=== PATIENT | male | born 1985 | race Caucasian/White ===

== ENCOUNTER 2016-11-24 12:34 | Emergency (ER) | payer OTHER ==
[2016-11-24 12:52] VITALS: RESP 18; TEMP 98
[2016-11-24] MEDS ORDERED: ORPHENADRINE 30 MG/ML 2 ML VIAL IM STA (13:15)
[2016-11-24] MEDS ORDERED: KETOROLAC 60 MG/2 ML VIAL IM STA (13:15)
--- NOTE | 2016-11-24 13:18 | ED ---
General Adult HPI - General Chief complaint: Back Pain/Injury Stated complaint: Back Pain Time Seen by Provider: 11/24/16 13:09 Source: patient, RN notes reviewed Mode of arrival: ambulatory Limitations: no limitations - History of Present Illness Initial comments: 31-year-old male presents with lower back pain 1 day. Patient states he bent down yesterday to pick something up and felt pain in his lower back. Patient states he is able to ambulate but it is painful. Patient states pain is worse with full extension of his back and with twisting. Patient denies any radicular pain, numbness/weakness or tingling to the bilateral upper/lower extremities. Patient states he has a history of back pain. Patient denies any loss of bowel or bladder function or loss of sensation to the saddle area. Patient denies any fall or trauma to the lower back.Patient denies any recent fever, chills, shortness breath, chest pain, abdominal pain, nausea/vomiting/ diarrhea, hematuria, headache, or visual changes, or any other complaints. - Related Data Previous Rx's Medication Instructions Recorded Cyclobenzaprine [Flexeril] 5 mg PO TID 3 Days 11/24/16 Allergies Allergy/AdvReac Type Severity Reaction Status Date / Time No Known Allergies Allergy Verified 11/24/16 12:53 Review of Systems ROS Statement: Those systems with pertinent positive or pertinent negative responses have been documented in the HPI. ROS Other: All systems not noted in ROS Statement are negative. Past Medical History Past Medical History: No Reported History History of Any Multi-Drug Resistant Organisms: None Reported Past Surgical History: No Surgical Hx Reported Past Psychological History: No Psychological Hx Reported Smoking Status: Current every day smoker Past Alcohol Use History: Occasional Past Drug Use History: None Reported General Exam - General Exam Comments Initial Comments: General: The patient is awake and alert, in no distress, and does not appear acutely ill. Neck: The neck is supple, there is no tenderness or JVD. Cardiovascular: There is a regular rate and rhythm. No murmur, rub or gallop is appreciated. Respiratory: Lungs are clear to auscultation, respirations are non-labored, breath sounds are equal. No wheezes, stridor, rales, or rhonchi. Musculoskeletal: There is no tenderness over the lumbar spinous processes or to the paraspinal muscles. Patient has pain with a twisting motion of the lower back. Full range of motion, strength 5/5 and Sensation intact. Radial pulses 2 + bilaterally. Patient is able to ambulate. Neurological: A&O x 3. CN II-XII intact, There are no obvious motor or sensory deficits. Coordination appears grossly intact. Speech is normal. Skin: Skin is warm and dry and no rashes or lesions are noted. Psychiatric: Normal mood and affect. Limitations: no limitations Course Vital Signs 11/24/16 12:50 Temperature 98.0 F Pulse Rate 121 H Respiratory 18 Rate Blood Pressure 168/98 O2 Sat by Pulse 96 Oximetry Medical Decision Making - Medical Decision Making This is a 31-year-old male who presents with lower back pain Monday. On physical exam patient is neurologically intact. There is no tenderness over the lumbar spinous processes or to the paraspinal muscles. Patient has pain with a twisting motion of the lower back. Full range of motion, strength 5/5 and Sensation intact. Radial pulses 2+ bilaterally. Patient is able to ambulate. Patient states he feels like the pain is in his bones. An x-ray of the lumbar spine was done and reviewed showing: Stable exam, no acute osseous abnormality. Loss of disc at L5-S1 compatible with degenerative disc disease. Lumbar MRI may be of benefit. Report and read by Dr. Dykes. I discussed results with patient. Patient was given a dose of Toradol and Norflex in the EC today. Discussed warm compresses to the area. Discussed ibuprofen, naproxen or Tylenol [id number] as needed for pain. Discussed that patient will be given a prescription for Flexeril. Discussed that this medication may make patient drowsy. Discussed close follow-up with primary care physician and return parameters. Discussed that patient should follow up with PCP in one to 2 days or return to the [facility] for any worsening symptoms or for any further concerns. Patient was receptive to this plan and patient will be discharged home. Disposition Clinical Impression: Strain of lumbar region Disposition: HOME SELF-CARE Condition: Good Instructions: Acute Low Back Pain (ED) Additional Instructions: Please use warm heating pads to the area. Please use [id number] ibuprofen , naproxen or Tylenol for any pain. Please use Flexeril as prescribed and be aware that this medication may make you drowsy. Please follow-up with family doctor in the next 2 days of symptoms have not improved. Please return to emergency room if the symptoms increase or worsen or for any other concerns. Prescriptions: Cyclobenzaprine [Flexeril] 5 mg PO TID 3 Days Referrals: Jocelyn Ventura MD [Primary Care Provider] - 1-2 days Time of Disposition: 13:52
--- NOTE | 2016-11-24 13:46 | XR ---
Lumbar spine HISTORY: Pain in back 3 views of the lumbar spine correlated to prior exam August No interval change IMPRESSION: Stable exam, no acute osseous abnormality. Loss of disc at L5-S1 compatible with degenera tive disc disease. Lumbar MRI may be of benefit.
[2016-11-24 14:01] VITALS: BP 130/77; PULSE 105
== END 2016-11-24 14:07 | disposition home or self-care (01) ==
LOC: EC 12:34
DX: S39.012A Strain of muscle, fascia and tendon of lower back, initial encounter (principal); M51.37 Other intervertebral disc degeneration, lumbosacral region; F17.200 Nicotine dependence, unspecified, uncomplicated; X58.XXXA Exposure to other specified factors, initial encounter
CPT/HCPCS: 72100; 99283; 96372 ×2; J2360; J1885

== ENCOUNTER 2017-02-01 13:31 | Emergency (ER) | payer OTHER ==
[2017-02-01 13:43] VITALS: RESP 18
--- NOTE | 2017-02-01 14:01 | ED ---
General Adult HPI - General Chief complaint: Psychiatric Symptoms Stated complaint: suicidal Time Seen by Provider: 02/01/17 13:40 Source: patient, RN notes reviewed Mode of arrival: ambulatory Limitations: no limitations - History of Present Illness Initial comments: This is a 31-year-old male with a past medical history significant for depression. Patient states this started in childhood but he has not been diagnosed by psychiatrist. Patient states he has been diagnosed by his primary medical care doctor. Patient states lately he's been under quite a bit of stress financially and at work and he is living with his 's parents and that is adding stress as well. Patient states lately he has been having quite a few thoughts of committing suicide however he does not feel like he is at the point of suicide but states he is afraid he is going to get there. Patient states he only drinks occasionally only illegal drug use doses marijuana. Patient denies any physical complaints today. Patient denies headache patient denies numbness weakness. Patient denies chest pain difficult breathing or shortness of breath per patient denies palpation. Patient denies any recent fever chills or cough. Patient denies abdominal pain patient denies nausea vomiting diarrhea - Related Data Home Medications Medication Instructions Recorded Confirmed Ibuprofen [Motrin] 800 mg PO TID PRN 02/01/17 02/01/17 Allergies Allergy/AdvReac Type Severity Reaction Status Date / Time No Known Allergies Allergy Verified 02/01/17 16:38 Review of Systems ROS Statement: Those systems with pertinent positive or pertinent negative responses have been documented in the HPI. ROS Other: All systems not noted in ROS Statement are negative. Past Medical History Past Medical History: No Reported History Additional Past Medical History / Comment(s): back pain History of Any Multi-Drug Resistant Organisms: None Reported Past Surgical History: No Surgical Hx Reported Past Psychological History: Anxiety, Depression Smoking Status: Current every day smoker Past Alcohol Use History: Occasional Past Drug Use History: Marijuana General Exam - General Exam Comments Initial Comments: GENERAL: Patient is well-developed and well-nourished. Patient is nontoxic and well- hydrated and is in mild distress. ENT: Neck is soft and supple. No significant lymphadenopathy is noted. Oropharynx is clear. Moist mucous membranes. Neck has full range of motion without eliciting any pain. EYES: The sclera were anicteric and conjunctiva were pink and moist. Extraocular movements were intact and pupils were equal round and reactive to light. Eyelids were unremarkable. PULMONARY: Unlabored respirations. Good breath sounds bilaterally. No audible rales rhonchi or wheezing was noted. CARDIOVASCULAR: There is a regular rate and rhythm without any murmurs gallops or rubs. ABDOMEN: Soft and nontender with normal bowel sounds. No palpable organomegaly was noted. There is no palpable pulsatile mass. SKIN: Skin is clear with no lesions or rashes and otherwise unremarkable. NEUROLOGIC: Patient is alert and oriented x3. Cranial nerves II through XII are grossly intact. Motor and sensory are also intact. Normal speech, volume and content. Symmetrical smile. MUSCULOSKELETAL: Normal extremities with adequate strength and full range of motion. No lower extremity swelling or edema. No calf tenderness. LYMPHATICS: No significant lymphadenopathy is noted PSYCHIATRIC: Patient states been feeling more depressed lately and having more suicidal ideations. Limitations: no limitations Course Vital Signs 02/01/17 13:37 Temperature 98.6 F Pulse Rate 103 H Respiratory 18 Rate Blood Pressure 149/69 O2 Sat by Pulse 99 Oximetry Medical Decision Making - Medical Decision Making EKG shows sinus tachycardia with occasional PAC at a rate of 101 bpm AK interval is 142 QRS is 92 QT interval 362 QTC is 469. Patient's EKG shows no ST segment elevation or depression or T wave abnormalities are noted. [facility] came down and spoke with the patient patient was considered safe to go home and follow up tomorrow with an already scheduled [facility] appointment. I spoke with the patient he agreed with this. - Lab Data Lab Results 02/01/17 Range/Units 14:21 Urine Opiates Screen Detected H (NotDetected) Ur Oxycodone Screen Not Detected (NotDetected) Urine Methadone Screen Not Detected (NotDetected) Ur Propoxyphene Screen Not Detected (NotDetected) Ur Barbiturates Screen Not Detected (NotDetected) U Tricyclic Antidepress Not Detected (NotDetected) Ur Phencyclidine Scrn Not Detected (NotDetected) Ur Amphetamines Screen Detected H (NotDetected) U Methamphetamines Scrn Not Detected (NotDetected) U Benzodiazepines Scrn Not Detected (NotDetected) Urine Cocaine Screen Detected H (NotDetected) U Marijuana (THC) Screen Detected H (NotDetected) Disposition Clinical Impression: Depression, Stress at work Disposition: HOME SELF-CARE Condition: Good Instructions: Depression (ED) Referrals: Jocelyn Ventura MD [Primary Care Provider] - 1-2 days Time of Disposition: 17:03
[2017-02-01 17:16] VITALS: BP 134/88; PULSE 88; TEMP 97.5
== END 2017-02-01 17:20 | disposition home or self-care (01) ==
LOC: EC 13:31
DX: F32.9 Major depressive disorder, single episode, unspecified (principal); Z56.3 Stressful work schedule; F17.200 Nicotine dependence, unspecified, uncomplicated
CPT/HCPCS: 80306; 82075; 99284

== ENCOUNTER 2018-05-19 23:19 | Inpatient (IN) | payer OTHER ==
[2018-05-19] MEDS ORDERED: HALOPERIDOL LACTATE 5 MG/ML 1 ML VIAL IM STA (23:54)
[2018-05-19] MEDS ORDERED: LORazepam 2 MG/ML INJ IM STA (23:56)
[2018-05-20] MEDS ORDERED: SODIUM CHLORIDE 0.9% 2,000 ML IV STA (00:58)
[2018-05-20 01:51] LABS: Basophils # (A) 0.1 k/uL (0-0.2); Basophils % (A) 0 %; Eosinophils % (A) 0 %; HCT 44.6 % (39.0-53.0); HGB 15.4 gm/dL (13.0-17.5); Lymphocytes # (A) 1.3 k/uL (1.0-4.8); Lymphocytes % (A) 9 %; MCH 26.7 pg (25.0-35.0); MCHC 34.6 g/dL (31.0-37.0); MCV 77.2 fL (80.0-100.0); Mean Platelet Volume 9.9; Monocytes # (A) 0.7 k/uL (0-1.0); Monocytes % (A) 5 %; Neutrophils # (A) 12.1 k/uL (1.3-7.7); Neutrophils % (A) 84 %; Platelet Count 272 k/uL (150-450); RBC 5.77 m/uL (4.30-5.90); RDW 13.8 % (11.5-15.5); WBC 14.4 k/uL (3.8-10.6)
[2018-05-20 02:07] LABS: ALT 38 U/L (21-72); AST 82 U/L (17-59); Acetaminophen <10.0 ug/mL; Albumin 5.3 g/dL (3.5-5.0); Alcohol <10 mg/dL; Alkaline Phosphatase 78 U/L (38-126); Anion Gap 25 mmol/L; Blood Urea Nitrogen 23 mg/dL (9-20); Calcium 10.5 mg/dL (8.4-10.2); Carbon Dioxide 17 mmol/L (22-30); Chloride 97 mmol/L (98-107); Glucose 149 mg/dL (74-99); Salicylate <1.0 mg/dL; Sodium 139 mmol/L (137-145); Total Bilirubin 1.2 mg/dL (0.2-1.3)
[2018-05-20] MEDS ORDERED: NALOXONE 0.4 MG/ML 1 ML VIAL IV PRN (04:44)
--- NOTE | 2018-05-20 04:44 | ED ---
Overdose HPI - General Chief Complaint: Overdose Stated Complaint: Mental Health Time Seen by Provider: 05/19/18 23:42 Source: police, EMS Mode of arrival: EMS Limitations: altered mental status - History of Present Illness Initial Comments: 32 years old the [place] interval apart by police he has a history of drug abuse in the past in place noticed that he was confused he was acting like somebody was drugs, patient himself has no complaints. Admits to doing some I and he said he is not quite sure if he accidentally dictated some other drugs but told he thought he was here and he injected himself about few hours ago now is quite confused is quite high. He can still sit still very thirsty and requesting water and denies any headaches no neck pain no chest pain or shortness of breath no abdominal pain no frequency urgency dysuria - Related Data Previous Rx's Medication Instructions Recorded Escitalopram [Lexapro] 20 mg PO DAILY #30 tab 11/14/17 traZODone HCL [Desyrel] 150 mg PO HS 30 Days #30 tab 11/14/17 Allergies Allergy/AdvReac Type Severity Reaction Status Date / Time No Known Allergies Allergy Verified 05/20/18 00:18 Review of Systems ROS Statement: Those systems with pertinent positive or pertinent negative responses have been documented in the HPI. ROS Other: All systems not noted in ROS Statement are negative. Past Medical History Past Medical History: GERD/Reflux Additional Past Medical History / Comment(s): back pain , hep c History of Any Multi-Drug Resistant Organisms: None Reported Past Surgical History: No Surgical Hx Reported Past Psychological History: Anxiety, Depression Smoking Status: Current every day smoker Past Alcohol Use History: Occasional Past Drug Use History: Heroin, Marijuana, Prescription Drug Abuse General Exam - General Exam Comments Initial Comments: General: The patient is awake and alert, is moving constantly GCS is 15, commands Skin: Skin is warm and dry and no rashes or lesions are noted. Does have some chronic skin lesions Eye: Pupils are equal, round and reactive to light, extra-ocular movements are intact; there is normal conjunctiva bilaterally. Ears, nose, mouth and throat: There are moist mucous membranes and no oral lesions. Neck: The neck is supple, there is no tenderness or JVD. Cardiovascular: There is a regular rate and rhythm. No murmur, rub or gallop is appreciated. He is tachycardic Respiratory: To auscultation bilateral, no wheezing no rhonchi no distress respiratory gregory noticed Gastrointestinal: Soft, non-distended, non-tender abdomen without masses or organomegaly noted. There is no rebound or guarding present. Bowel sounds are unremarkable. Back: There is no tenderness to palpation in the midline. There is no obvious deformity. Musculoskeletal: Normal ROM, no tenderness, There is no pedal edema. There is no calf tenderness or swelling. No cords were appreciated. Neurological: CN II-XII intact, Cranial nerves III through XII are intact. There are no obvious motor or sensory deficits. Coordination appears grossly intact. Speech is normal. Psychiatric: Cooperative, eyes any suicidal or homicidal ideation follow the commands Limitations: altered mental status Course Vital Signs 05/19/18 05/20/18 05/20/18 23:20 01:40 02:15 Temperature 99.5 F Pulse Rate 120 H 91 90 Respiratory 18 18 18 Rate Blood Pressure 169/83 139/64 138/65 O2 Sat by Pulse 97 94 L 95 Oximetry 05/20/18 05/20/18 03:02 04:13 Temperature Pulse Rate 80 75 Respiratory 18 18 Rate Blood Pressure 143/65 141/68 O2 Sat by Pulse 95 98 Oximetry KG is normal sinus ventricular rate is 94 [place] interval is 122 QRS duration is 96 QT/QTc is 376/472 This EKG does not reveal any ST elevation or ST depression Medical Decision Making - Lab Data Result diagrams: 05/19/18 23:40 05/19/18 23:40 Lab Results 05/19/18 05/19/18 05/19/18 Range/Units 23:40 23:40 23:40 WBC 14.4 H (3.8-10.6) k/uL RBC 5.77 (4.30-5.90) m/uL Hgb 15.4 (13.0-17.5) gm/dL Hct 44.6 (39.0-53.0) % MCV 77.2 L (80.0-100.0) fL MCH 26.7 (25.0-35.0) pg MCHC 34.6 (31.0-37.0) g/dL RDW 13.8 (11.5-15.5) % Plt Count 272 (150-450) k/uL Neutrophils % 84 % Lymphocytes % 9 % Monocytes % 5 % Eosinophils % 0 % Basophils % 0 % Neutrophils # 12.1 H (1.3-7.7) k/uL Lymphocytes # 1.3 (1.0-4.8) k/uL Monocytes # 0.7 (0-1.0) k/uL Eosinophils # 0.0 (0-0.7) k/uL Basophils # 0.1 (0-0.2) k/uL Sodium 139 (137-145) mmol/L Potassium 5.0 (3.5-5.1) mmol/L Chloride 97 L (98-107) mmol/L Carbon Dioxide 17 L (22-30) mmol/L Anion Gap 25 mmol/L BUN 23 H (9-20) mg/dL Creatinine 3.00 H (0.66-1.25) mg/dL Est GFR (CKD-EPI)AfAm 31 (>60 ml/min/1.73 sqM) Est GFR (CKD-EPI)NonAf 26 (>60 ml/min/1.73 sqM) Glucose 149 H (74-99) mg/dL Calcium 10.5 H (8.4-10.2) mg/dL Total Bilirubin 1.2 (0.2-1.3) mg/dL AST 82 H (17-59) U/L ALT 38 (21-72) U/L Alkaline Phosphatase 78 (38-126) U/L Troponin I <0.012 (0.000-0.034) ng/mL Total Protein 10.0 H (6.3-8.2) g/dL Albumin 5.3 H (3.5-5.0) g/dL Salicylates <1.0 mg/dL Acetaminophen <10.0 ug/mL Serum Alcohol <10 mg/dL Critical Care Time Total Critical Care Time: 30 Critical Care Time: The patient's white count is 15, creatinine is 3.0 his creatinine previous one was within normal range calcium is 10.5 troponin is negative EKG is unremarkable CO2 is 17 chest x-ray patient is substance abuse, daily failure, metabolic acidosis patient needed to be admitted to hospitalist service should be admitted to Dr. Lainez's service and now will consult psychiatry as well as the Dr. Champion for Disposition Clinical Impression: Substance abuse, Acute renal failure, Metabolic acidosis Disposition: ADMITTED IP TO THIS HOSP Condition: Good Referrals: None,Stated [Primary Care Provider] - 1-2 days
[2018-05-20 04:55] LABS: Amphetamine Screen,Urine Detected (NotDetected); Barbiturate Screen,Urine Not Detected (NotDetected); Benzodiazepines Screen,Urine Detected (NotDetected); Cocaine Screen,Urine Not Detected (NotDetected); Methadone Screen, Urine Not Detected (NotDetected); Opiate Screen,Urine Detected (NotDetected); Oxycodone Screen, Urine Not Detected (NotDetected); Phencyclidine Screen,Urine Not Detected (NotDetected); Tricyclic Antidepressant,Urine Not Detected (NotDetected); Urn Cannabinoid Scrn Detected (NotDetected)
--- NOTE | 2018-05-20 05:15 | XR ---
EXAM: XR Chest, 1 View CLINICAL HISTORY: ITS.REASON XR Reason: Pain TECHNIQUE: Frontal view of the chest. COMPARISON: No relevant prior studies available. FINDINGS: Lungs: Mild patchy lung opacities, possible atelectasis. Pleural space: Unremarkable. No pneumothorax. Heart: Unremarkable. Mediastinum: Unremarkable. Bones/joints: Unremarkable. IMPRESSION: Mild patchy lung opacities, possible atelectasis.
[2018-05-20] MEDS: SODIUM CHLORIDE 0.9% 1,000 ML IV SCH ×2 (05:24→15:09)
--- NOTE | 2018-05-20 06:40 | P.HPIM ---
History of Present Illness H&P Date: 05/20/18 Chief Complaint: Abnormal behaviors 32-year-old male with no significant past medical history. Patient is currently stoned and unable to provide any meaningful history, history was obtained by reviewing medical records and trying to discuss with the patient. Seems like patient was brought to the hospital by police due to abnormal behavior, patient's abuses multiple substances including methamphetamine and marijuana opiates. Currently he reports some suicidal ideation but denies any physical complaints. In the emergency department blood work revealed acute kidney injury, urine drug screen showed multiple substances are positive. Patient was evaluated by psychiatry. His and was petitioned to the [facility] once medically cleared. Currently patient seems to be stoned and only wanted is sleeping, he was following simple commands but unable to provide any meaningful history at this time Review of Systems Unable to obtain meaningful review of systems due to patient's mental status Past Medical History Past Medical History: GERD/Reflux Additional Past Medical History / Comment(s): back pain , hep c History of Any Multi-Drug Resistant Organisms: None Reported Past Surgical History: No Surgical Hx Reported Past Psychological History: Anxiety, Depression Smoking Status: Current every day smoker Past Alcohol Use History: Occasional Past Drug Use History: Heroin, Marijuana, Prescription Drug Abuse Additional History: Unable to obtain family history due to patient mental status Medications and Allergies Home Medications Medication Instructions Recorded Confirmed Type Escitalopram [Lexapro] 20 mg PO DAILY #30 tab 11/14/17 05/20/18 Rx traZODone HCL [Desyrel] 150 mg PO HS 30 Days #30 tab 11/14/17 05/20/18 Rx Allergies Allergy/AdvReac Type Severity Reaction Status Date / Time No Known Allergies Allergy Verified 05/20/18 00:18 Physical Exam Vitals: Vital Signs Temp Pulse Resp BP Pulse Ox 05/20/18 05:14 79 18 156/66 97 05/20/18 04:13 75 18 141/68 98 05/20/18 03:02 80 18 143/65 95 05/20/18 02:15 90 18 138/65 95 05/20/18 01:40 91 18 139/64 94 L 05/19/18 23:20 99.5 F 120 H 18 169/83 97 Intake and Output 05/19/18 05/19/18 05/20/18 14:59 22:59 06:59 Other: Weight 87.09 kg Constitutional: No acute distress, very sleepy easily arousable but he drifts back to sleep easily. He follows very simple commands only and answers with head nodding only he can't even keep his eyes open Eyes: Anicteric sclerae, moist conjunctiva, Pupils equal round reactive to light ENMT: NC/AT Oropharynx clear, no erythema, or exudates Neck: Supple, FROM, no masses, or JVD No carotid bruits No thyromegaly Lungs: Clear to auscultation Clear to percussion Normal respiratory effort, no accessory muscle use Cardiovascular: Heart regular in rate and rhythm, No murmurs, gallops, or rubs No peripheral edema Abdominal: Soft Nontender, no guarding, rebound or rigidity Abdomen moving with respiration Normoactive bowel sounds No hepatomegaly, No splenomegaly No palpable mass No abdominal wall hernia noted Skin: Normal temperature, tone, texture, turgor No induration No subcutaneous nodules No rash, lesions No ulcers Extremities: No digital cyanosis No clubbing Pedal pulses intact and symmetrical Radial pulses intact and symmetrical No calf tenderness Psychiatric: Patient is very sleepy easily arousable and can staying awake fullness Poor judgment Neuro Muscles Strength 5/5 in all 4 extremities Sensation to light touch grossly present throughout Cranial nerves II-XII grossly intact No focal sensory deficits Lymphatics: no palpable cervical or supraclavicular , or inguinal lymph nodes Results CBC & Chem 7: 05/19/18 23:40 05/19/18 23:40 Labs: Abnormal Lab Results - Last 24 Hours (Table) 05/19/18 05/19/18 05/20/18 Range/Units 23:40 23:40 04:28 WBC 14.4 H (3.8-10.6) k/uL MCV 77.2 L (80.0-100.0) fL Neutrophils # 12.1 H (1.3-7.7) k/uL Chloride 97 L (98-107) mmol/L Carbon Dioxide 17 L (22-30) mmol/L BUN 23 H (9-20) mg/dL Creatinine 3.00 H (0.66-1.25) mg/dL Glucose 149 H (74-99) mg/dL Calcium 10.5 H (8.4-10.2) mg/dL AST 82 H (17-59) U/L Total Protein 10.0 H (6.3-8.2) g/dL Albumin 5.3 H (3.5-5.0) g/dL Urine Opiates Screen Detected H (NotDetected) Ur Amphetamines Screen Detected H (NotDetected) U Methamphetamines Scrn Detected H (NotDetected) U Benzodiazepines Scrn Detected H (NotDetected) U Marijuana (THC) Screen Detected H (NotDetected) Assessment and Plan Assessment: 32-year-old male with no significant past medical history patient was brought in by police due to abnormal behavior patient admitted to the hospital with length of stay longer than 48 hours due to diagnosis of acute kidney injury and polysubstance abuse patient also was petitioned to the [facility] once medically cleared Plan: Acute metabolic encephalopathy secondary to multi-factorial polysubstance abuse in acute renal failure Acute renal failure Leukocytosis Polysubstance abuse Suicidal ideation Patient is petitioned to the [facility] once cleared medically IV fluid hydration aggressively Nephrology consult Avoid nephrotoxic meds Patient will require bedside sitter for safety Psychiatry consult Patient counseled to quit drug of abuse and smoking DVT prophylaxis with heparin subcu 3 times a day Patient will be full code by default he he was unable to name a surrogate decision-maker Anticipated discharge to the psych [facility] once medically stable
[2018-05-20] MEDS ORDERED: ESCITALOPRAM 20 MG TAB PO SCH (09:00)
[2018-05-20] MEDS: HEPARIN SODIUM,PORCINE 5,000 UNIT/ML 1 ML VIAL SQ SCH ×2 (12:25→15:51)
[2018-05-20 14:56] LABS: Anion Gap 9 mmol/L; Blood Urea Nitrogen 17 mg/dL (9-20); Calcium 8.9 mg/dL (8.4-10.2); Carbon Dioxide 27 mmol/L (22-30); Chloride 98 mmol/L (98-107); Glucose 80 mg/dL (74-99); Potassium 3.7 mmol/L (3.5-5.1); Sodium 134 mmol/L (137-145)
[2018-05-20] MEDS ORDERED: MAG HYDROX/AL HYDROX/SIMETH 30 ML CUP PO PRN (15:23)
[2018-05-20] MEDS: NICOTINE 14MG/24HR PATCH TRANSDERM SCH (15:45)
[2018-05-20 15:48] LABS: Appearance,Urine Clear (Clear); Bilirubin,Urine Negative (Negative); Blood,Urine Negative (Negative); Color,Urine Yellow; Glucose,Urine (UA) Negative (Negative); Ketones,Urine Trace (Negative); Leukocyte Esterase,Urine Negative (Negative); Nitrite,Urine Negative (Negative); PH, Urine 5.5 (5.0-8.0); Protein,Urine Trace (Negative); Specific Gravity,Urine 1.015 (1.001-1.035); Urobilinogen,Urine <2.0 mg/dL (<2.0)
[2018-05-20] MEDS: ESCITALOPRAM 20 MG TAB PO SCH (15:51)
[2018-05-20] MEDS: traZODone HCL 50 MG TAB PO SCH (20:48)
--- NOTE | 2018-05-20 21:57 | CONS ---
CONSULTATION REASON FOR CONSULT: Renal failure. HISTORY OF PRESENT ILLNESS: The patient is a 32-year-old male who was brought into the emergency room yesterday with mental status changes. There is history of drug abuse in the past. The patient has been sleeping since he came in to the hospital. His was present for a short period of time. She has now left. We are not able to get details of history. Drug screen was positive for amphetamine, methamphetamine, benzos and marijuana. There is no prior history of kidney disease. Serum creatinine last night was 3.0 mg/dL. According to nursing staff, the patient had a Cat catheter placed in the ER. He has not voided since then. He had about 500 mL on bladder scan and he was not able to go. Calcium is noted to be elevated at 10.5, albumin is 5.3, no anemia is noted. PAST MEDICAL HISTORY: Previous history of drug abuse, gastroesophageal reflux disease. SOCIAL HISTORY: Positive for smoking. Previous history of marijuana and heroin abuse. MEDICATIONS: Medications at home included Desyrel, Lexapro. ALLERGIES: None. REVIEW OF SYSTEMS: Cannot be obtained. PHYSICAL EXAMINATION: Patient is currently sleeping. He is barely arousable. He goes back to sleep. He is not in any acute distress. Blood pressure 121/54, heart rate 65 per minute. Patient is afebrile. Examination of the heart: S1, S2. Examination lungs: Bilateral breath sounds are heard. Abdomen is soft, nontender. Examination lower extremities shows no evidence of edema. DIRECTOR RECORDS MANAGEMENT exam shows patient is moving all 4 extremities. LABS: From last night show sodium 139, potassium 5.0, CO2 of 17, BUN 23, serum creatinine 3.0, calcium 10.5. UA is not available. ASSESSMENT: 1. Acute kidney injury, most likely prerenal. Continue with IV fluids. We will repeat labs now. There may be a component of urinary retention. We will straight cath again and hopefully patient can void once the effect of the drugs wear off. Will check urinalysis. If renal function does not improve significantly, an ultrasound of the kidneys will be ordered as well. 2. Substance abuse with drug screen positive for marijuana, amphetamine, methamphetamine. 3. Metabolic acidosis secondary to renal failure. If the acidosis does not improve, patient should have toxic alcohol screen. 4. Hypercalcemia. We will obtain workup including PTH level, serum and urine immunofixation and Miah level. PLAN: Repeat labs. Check bladder scan. If the bladder scan continues to show greater than 400 mL the patient will need a straight cath given his renal failure. Continue to avoid nephrotoxic agents. Thank you for this consultation. We will continue to follow the patient with you during his hospitalization. MIGUEL / TEETEE: [id number] /
[2018-05-21] MEDS: HEPARIN SODIUM,PORCINE 5,000 UNIT/ML 1 ML VIAL SQ SCH ×3 (00:21→18:06)
[2018-05-21] MEDS: SODIUM CHLORIDE 0.9% 1,000 ML IV SCH ×4 (05:48→16:42)
[2018-05-21 06:58] LABS: Basophils % (A) 0 %; Eosinophils # (A) 0.1 k/uL (0-0.7); Eosinophils % (A) 2 %; HCT 34.8 % (39.0-53.0); Lymphocytes # (A) 1.6 k/uL (1.0-4.8); Lymphocytes % (A) 22 %; MCH 26.7 pg (25.0-35.0); MCHC 33.3 g/dL (31.0-37.0); MCV 80.1 fL (80.0-100.0); Mean Platelet Volume 7.5; Monocytes # (A) 0.4 k/uL (0-1.0); Monocytes % (A) 6 %; Neutrophils # (A) 4.8 k/uL (1.3-7.7); Neutrophils % (A) 67 %; Platelet Count 196 k/uL (150-450); RBC 4.34 m/uL (4.30-5.90); RDW 14.2 % (11.5-15.5); WBC 7.1 k/uL (3.8-10.6)
[2018-05-21 07:05] LABS: HGB 11.6 gm/dL (13.0-17.5)
[2018-05-21 07:06] LABS: Anion Gap 7 mmol/L; Blood Urea Nitrogen 11 mg/dL (9-20); Calcium 8.7 mg/dL (8.4-10.2); Carbon Dioxide 25 mmol/L (22-30); Chloride 109 mmol/L (98-107); Glucose 81 mg/dL (74-99); Magnesium 2.2 mg/dL (1.6-2.3); Phosphorus 1.9 mg/dL (2.5-4.5); Potassium 3.5 mmol/L (3.5-5.1); Sodium 141 mmol/L (137-145)
[2018-05-21] MEDS: ESCITALOPRAM 20 MG TAB PO SCH (09:16)
[2018-05-21] MEDS: NICOTINE 14MG/24HR PATCH TRANSDERM SCH (10:04)
--- NOTE | 2018-05-21 11:08 | PN ---
PROGRESS NOTE The patient is seen for followup for acute kidney injury. He was admitted with polysubstance abuse. Serum creatinine was 3 at the time of admission. Patient did have urine retention. He currently has an indwelling Cat catheter. He is maintained on IV fluids. Serum creatinine is down to 0.65. Patient remains sleepy. He is arousable today, which is better than yesterday. He answers the simple questions and did state that he was in the hospital following which he went back to sleep. PHYSICAL EXAMINATION: On examination, blood pressure is 118/73, heart rate 77 per minute. He is afebrile. EXAMINATION OF THE HEART: S1, S2. EXAMINATION OF THE LUNGS: Bilateral breath sounds are heard. Abdomen is soft, nontender. Examination of the lower extremities shows no evidence of edema. RN FIELD exam shows patient moving all 4 extremities. He is sleepy. Mentation is slightly better than yesterday, but still depressed. LABS: Labs show sodium 141, potassium 3.5, chloride 109, BUN 11, serum creatinine 0.65, hemoglobin 11.6 g/dL. ASSESSMENT: 1. Acute kidney injury, currently significantly improved. Maintained on IV fluids with good urine output. I will continue with IV hydration. 2. Hypercalcemia, now improved. We will check a PTH level and vitamin D level. 3. Metabolic acidosis secondary to renal failure, currently improved. 4. Polysubstance abuse with urine drug screen positive for amphetamines, methamphetamines, benzodiazepines, marijuana, and opiates. PLAN: Continue IV fluids. Check PTH levels, vitamin D level to workup for the hypercalcemia. Calcium level has improved. MMODL / IJN: [id number] /
[2018-05-21 16:17] LABS: Parathyroid Hormone Intact 32.9 pg/mL (14.0-72.0)
[2018-05-21 17:25] LABS: Vitamin D 25 Hydroxy 30.3 ng/mL (30.0-100.0)
[2018-05-21] MEDS: HYDROcodone/APAP 5-325MG 1 EACH TAB PO PRN (18:07)
[2018-05-21] MEDS: traZODone HCL 50 MG TAB PO SCH (20:05)
[2018-05-21 21:18] VITALS: RESP 18
[2018-05-22] MEDS: HEPARIN SODIUM,PORCINE 5,000 UNIT/ML 1 ML VIAL SQ SCH ×2 (01:05→07:28)
[2018-05-22] MEDS: HYDROcodone/APAP 5-325MG 1 EACH TAB PO PRN ×2 (05:36→11:45)
[2018-05-22] MEDS: SODIUM CHLORIDE 0.9% 1,000 ML IV SCH ×2 (05:37→07:28)
[2018-05-22 06:24] VITALS: BP 130/81; PULSE 90; TEMP 97.4
[2018-05-22] MEDS: ESCITALOPRAM 20 MG TAB PO SCH (07:28)
[2018-05-22] MEDS: NICOTINE 14MG/24HR PATCH TRANSDERM SCH (07:28)
--- NOTE | 2018-05-22 09:33 | P.PN ---
Subjective Progress Note Date: 05/21/18 Principal diagnosis: Dehydration/ARF Slightly lethargic, wakes up easily and answers questions. No pain. No sob. Objective - Vital Signs Vital signs: Vital Signs Temp 97.4 F L 05/22/18 06:24 Pulse 90 05/22/18 06:24 Resp 18 05/22/18 06:24 BP 130/81 05/22/18 06:24 Pulse Ox 94 L 05/22/18 06:24 Intake & Output 05/21/18 05/22/18 05/22/18 18:59 06:59 18:59 Intake Total 590 Output Total 1400 Balance -1400 590 Weight 87.09 kg Intake: Oral 590 Output: Urine 1400 Other: Voiding Method Toilet Toilet Toilet Urinal Urinal # Voids 1 - Exam Constitutional: No acute distress, conversant, pleasant Eyes:Anicteric sclerae, moist conjunctiva, no lid-lag, PERRLA, ENMT: Oropharynx clear, no erythema, exudates Neck: Supple, FROM, no masses, or JVD, No carotid bruits, No thyromegaly Lungs: Clear to auscultation, Clear to percussion, Normal respiratory effort, no accessory muscle use Cardiovascular: Heart regular in rate and rhythm, No murmurs, gallops, or rubs, No peripheral edema Abdominal: Soft, Nontender, no guarding, rebound or rigidity, Normoactive bowel sounds, No hepatomegaly, No splenomegaly, No palpable mass Skin: Normal temperature, tone, texture, turgor, no induration, No subcutaneous nodules, No rash, lesions, No ulcers Extremities: No digital cyanosis, No clubbing, Pedal pulses intact and symmetrical, Radial pulses intact and symmetrical, No calf tenderness Psychiatric: Alert and oriented to person, place and time, appropriate affect, intact judgement Neuro: Muscles Strength 5/5 in all 4 extremities, Sensation to light touch grossly present throughout, Cranial nerves II-XII grossly intact, no focal sensory deficits - Labs CBC & Chem 7: 05/21/18 06:42 05/21/18 06:42 Assessment and Plan Plan: Acute metabolic encephalopathy secondary to multi-factorial polysubstance and acute renal failure Resolved. MS back to baseline. Acute renal failure Seen by nephro Likely sec to dehydration Continue IV fluid hydration Polysubstance abuse/Suicidal ideation Petitioned by his , awaiting psychiatry evaluation. bedside sitter for safety Discussed with over the phone in detail.
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
--- NOTE | 2018-05-22 12:39 | PN ---
PROGRESS NOTE The patient is seen for followup for acute kidney injury. His renal function is improved. The patient's mentation is also significantly improved. He has been up and going to the bathroom. He has been eating. EXAMINATION: Today, blood pressure is 130/81, heart rate 90 per minute. He is afebrile. HEART: S1, S2. LUNGS: Bilateral breath sounds are heard. Abdomen is soft, nontender. Lower extremities show no evidence of edema. CHEMIST STEROIDS is grossly intact. LABS: Show sodium 141, potassium 3.7, chloride 109, BUN 11, serum creatinine 0.65. Hemoglobin 11.6. ASSESSMENT: 1. Acute kidney injury, prerenal, currently significantly improved. 2. Polysubstance abuse. 3. Altered mentation secondary to substance abuse. 4. Hypercalcemia on initial admission, may be associated with acute kidney injury, now resolved. PTH was not significantly elevated. 5. Volume depletion, currently improved. 6. Hypophosphatemia secondary to poor oral intake. Expect improvement with increased diet. PLAN: Patient is stable for discharge from nephrology standpoint. MMODL / IJN: [id number] /
--- NOTE | 2018-05-22 12:44 | P.DS ---
Providers Date of admission: 05/20/18 15:12 Expected date of discharge: 05/22/18 Attending physician: Maday Blair MD Consults: 05/20/18 04:44 Consult Physician Stat Consulting Provider: Jose Rafael Cooper Consult Reason/Comments: question of self-harm Do you want consulting provider notified?: Yes Consult Physician Stat Consulting Provider: Kristie Champion Consult Reason/Comments: Acute renal failure, metabolic acidosis Do you want consulting provider notified?: Yes Primary care physician: Stated None Hospital Course: 32-year-old male with no significant past medical history presented to the ER brought by police due to abnormal behavior, patient's abuses multiple substances including methamphetamine, marijuana and opiates. He was also having some suicidal ideations and increasing depression but denied any physical complaints. Because of that and because of the drug abuse he was petitioned by his to be admitted for inpatient psychiatric evaluation. In the emergency department blood work revealed acute kidney injury, creatinine was 3, urine drug screen showed multiple substances are positive, including methamphetamine, benzodiazepine, amphetamines, marijuana and opiates. He was started on IV fluids, evaluated by nephrology. Initially had a Cat catheter and was putting large amount of urine. After the Cat catheter was taken out and was able to urinate by himself. His creatinine came back to baseline, normal as well. Patient also had a sitter no time he was in the hospital. Patient was evaluated by psychiatry today, no reason for inpatient psychiatric admission was found. Patient currently not suicidal. He was cleared for discharge by psychiatry. A follow-up with an outpatient psychiatrist was advised. The sitter was discontinued. I asked social work to provide patient with resources to help him with his drug abuse. He will be discharged home in a stable condition. I discussed the case with his and explained to our findings and further management options. Discharge diagnoses Acute renal failure, likely prerenal/dehydration, resolved Acute drug overdose, resolved Multiple drug abuses Patient Condition at Discharge: Good Plan - Discharge Summary New Discharge Prescriptions: New Mag Hydrox/Al Hydrox/Simeth [Maalox] 30 ml PO Q6HR PRN cup PRN Reason: Gi Upset Nicotine 14Mg/24Hr Patch [Habitrol] 1 patch TRANSDERM DAILY patch Continue Escitalopram [Lexapro] 20 mg PO DAILY #30 tab traZODone HCL [Desyrel] 150 mg PO HS 30 Days #30 tab Buprenorphine HCl/Naloxone HCl [Suboxone 8 mg-2 mg Sl Film] 1 film SL BID Discharge Medication List Escitalopram [Lexapro] 20 mg PO DAILY #30 tab 11/14/17 [Rx] traZODone HCL [Desyrel] 150 mg PO HS 30 Days #30 tab 11/14/17 [Rx] Buprenorphine HCl/Naloxone HCl [Suboxone 8 mg-2 mg Sl Film] 1 film SL BID [History] Mag Hydrox/Al Hydrox/Simeth [Maalox] 30 ml PO Q6HR PRN cup 05/21/18 [Rx] Nicotine 14Mg/24Hr Patch [Habitrol] 1 patch TRANSDERM DAILY patch 05/21/18 [Rx] Follow up Appointment(s)/Referral(s): None,Stated [Primary Care Provider] - 1-2 days
== END 2018-05-22 15:00 | disposition home or self-care (01) | DRG 917 ==
LOC: EC 23:19 → 3OBS 05-20 04:46 → OBSVTOIN 05-20 15:12 → 5MS5E 05-20 19:25
PROVIDERS: ADMIT Internal Medicine; ATTEND Internal Medicine
DX: T40.1X1A Poisoning by heroin, accidental (unintentional), initial encounter (principal); G93.41 Metabolic encephalopathy; N17.9 Acute kidney failure, unspecified; E87.2 Acidosis; R45.851 Suicidal ideations; T42.4X1A Poisoning by benzodiazepines, accidental (unintentional), initial encounter; T40.7X1A Poisoning by cannabis (derivatives), accidental (unintentional), initial encounter; F13.129 Sedative, hypnotic or anxiolytic abuse with intoxication, unspecified; F11.129 Opioid abuse with intoxication, unspecified; F15.129 Other stimulant abuse with intoxication, unspecified; F12.10 Cannabis abuse, uncomplicated; D72.829 Elevated white blood cell count, unspecified; E83.39 Other disorders of phosphorus metabolism; E83.52 Hypercalcemia; E86.0 Dehydration; F17.200 Nicotine dependence, unspecified, uncomplicated; F32.9 Major depressive disorder, single episode, unspecified; F41.9 Anxiety disorder, unspecified; K21.9 Gastro-esophageal reflux disease without esophagitis; Z79.899 Other long term (current) drug therapy; Z71.6 Tobacco abuse counseling; Z71.51 Drug abuse counseling and surveillance of drug abuser; R33.9 Retention of urine, unspecified
CPT/HCPCS: 36415; 71045; 80048; 80053; 80306; 80320; 81003; 82306; 83520; 83735; 83970; 84100; 84484; 85025; 93005; 96360; 96361; 96372; 99291

== ENCOUNTER 2018-10-08 14:37 | Inpatient (IN) | payer MEDICAID, OTHER ==
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
[2018-10-08 15:49] LABS: Amphetamine Screen,Urine Not Detected (NotDetected); Barbiturate Screen,Urine Not Detected (NotDetected); Benzodiazepines Screen,Urine Not Detected (NotDetected); Cocaine Screen,Urine Not Detected (NotDetected); Methadone Screen, Urine Not Detected (NotDetected); Opiate Screen,Urine Not Detected (NotDetected); Oxycodone Screen, Urine Not Detected (NotDetected); Phencyclidine Screen,Urine Not Detected (NotDetected); Tricyclic Antidepressant,Urine Not Detected (NotDetected); Urn Cannabinoid Scrn Not Detected (NotDetected)
[2018-10-08] MEDS ORDERED: LORazepam 2 MG/ML INJ IM STA (17:48)
[2018-10-08] MEDS ORDERED: MAGNESIUM HYDROXIDE 2,400 MG/10 ML CUP PO PRN (18:53)
[2018-10-08] MEDS ORDERED: MAG HYDROX/AL HYDROX/SIMETH 30 ML CUP PO PRN (18:53)
[2018-10-08] MEDS ORDERED: HYOSCYAMINE SULFATE 0.125 MG TAB PO PRN (18:57)
[2018-10-08] MEDS ORDERED: busPIRone HCl 10 MG TAB PO PRN (18:57)
[2018-10-08] MEDS ORDERED: cloNIDine HCL 0.1 MG TAB PO PRN (18:57)
[2018-10-08] MEDS ORDERED: CALCIUM PO PRN (18:57)
[2018-10-08] MEDS ORDERED: MAGNESIUM PO PRN (18:57)
[2018-10-08] MEDS: ACETAMINOPHEN TAB 325 MG TAB PO PRN (19:54)
[2018-10-08] MEDS: IBUPROFEN 600 MG TAB PO PRN (19:55)
[2018-10-08] MEDS: LORazepam 1 MG TAB PO PRN (19:56)
[2018-10-08] MEDS: diphenhydrAMINE 25 MG CAP PO PRN (21:10)
[2018-10-08] MEDS ORDERED: ZIPRASIDONE 20 MG VIAL IM ONE (21:12)
[2018-10-08] MEDS: ZIPRASIDONE 20 MG VIAL IM PRN (21:12)
[2018-10-08] MEDS ORDERED: WATER FOR INJECTION, STERILE 10 ML IV ONE (21:12)
[2018-10-08] MEDS ORDERED: QUEtiapine 100 MG TAB PO SCH (22:00)
[2018-10-09] MEDS: LISINOPRIL 10 MG TAB PO SCH (06:23)
[2018-10-09] MEDS: THIAMINE 100 MG TAB PO SCH ×2 (09:08→10:20)
[2018-10-09] MEDS: NICOTINE 14MG/24HR PATCH TRANSDERM SCH ×2 (09:08→10:20)
[2018-10-09] MEDS: MULTIVITAMINS, THERA 1 EACH TAB PO SCH (10:20)
--- NOTE | 2018-10-09 10:21 | P.HP ---
Psychiatric H&P - . H&P Date: 10/09/18 History & Physical: Allergies Allergy/AdvReac Type Severity Reaction Status Date / Time No Known Allergies Allergy Verified 10/08/18 21:35 Vital Signs Temp 97.7 F 10/08/18 19:12 Pulse 83 10/08/18 19:12 Resp 20 10/08/18 19:12 BP 145/89 10/08/18 19:12 Pulse Ox 96 10/08/18 14:39 Intake & Output 10/08/18 10/09/18 10/09/18 18:59 06:59 18:59 Weight 81.193 kg 83.206 kg Laboratory Last Values Urine Opiates Screen Not Detected (NotDetected) 10/08/18 14:47 Ur Oxycodone Screen Not Detected (NotDetected) 10/08/18 14:47 Urine Methadone Screen Not Detected (NotDetected) 10/08/18 14:47 Ur Propoxyphene Screen Not Detected (NotDetected) 10/08/18 14:47 Ur Barbiturates Screen Not Detected (NotDetected) 10/08/18 14:47 U Tricyclic Antidepress Not Detected (NotDetected) 10/08/18 14:47 Ur Phencyclidine Scrn Not Detected (NotDetected) 10/08/18 14:47 Ur Amphetamines Screen Not Detected (NotDetected) 10/08/18 14:47 U Methamphetamines Scrn Not Detected (NotDetected) 10/08/18 14:47 U Benzodiazepines Scrn Not Detected (NotDetected) 10/08/18 14:47 Urine Cocaine Screen Not Detected (NotDetected) 10/08/18 14:47 U Marijuana (THC) Screen Not Detected (NotDetected) 10/08/18 14:47 Past Medical History Past Medical History: GERD/Reflux, Hypertension Additional Past Medical History / Comment(s): back pain , hep c, DDD, carpel tunnel History of Any Multi-Drug Resistant Organisms: None Reported Past Surgical History: No Surgical Hx Reported Past Psychological History: Anxiety, Depression Smoking Status: Current every day smoker Past Alcohol Use History: Occasional Past Drug Use History: Heroin, Marijuana, Prescription Drug Abuse 10/09/18 10:20 Assessment and Plan Assessment: HPI Patient is a pleasant 32-year-old male presenting to the emergency department for mental health evaluation. Patient is transferred from [facility]. Patient has been there since September 25 for opiate and alcohol abuse. Patient admits to previously injecting heroin. Patient states he was sent here because he told somebody he feels the government is trying to kill him. Patient states several years ago he was injected with [employer]. Patient believes the government is reading has thoughts. Patient states his [id number] may have convinced him to believe these thoughts. Patient has tried to get in to see [facility] however has not been in there yet. Patient did abrade his left arm several times previously, last was beginning of this month. No homicidal thoughts. Patient states the roommate that he is at [facility] right now used to live 3 doors down or he was stained with his in-laws. He believes this person also works for the [employer]. No current suicidal thoughts. Patient questions if these problems he is having is real or if he could be schizophrenic. Patient states he has never been diagnosed with schizophrenia and is not supposed to be on any medication for this. PAST PSYCHIATRIC HISTORY: This is the patient's third inpatient psychiatric admission others were at [facility] and in [place]. He endorses a total of 3 suicide attempts to involving overdoses and one involving cutting his wrist. He has worked with [facility] in the past but his case was closed due to noncompliance with appointments. He has been treated with Wellbutrin and Lexapro Xanax Thorazine clonidine and trazodone in the past. He states Lexapro was the most helpful in reducing depressive symptoms. PMH: Hepatitis C, he reports his blood pressure can be elevated at times. He presumes he contracted the hepatitis C via intravenous drug use ALLERGIES: NO KNOWN DRUG ALLERGIES MEDICATIONS: None CHEMICAL DEPENDENCY HISTORY: The patient reports using alcohol 3 times a week having 2 beers at a time, he uses marijuana 3 times a week, he has been using Suboxone and Vicodin to keep from relapsing on heroin. He states he has been clean from heroin for approximately 3 months. He reports no regular use of cocaine. He has been in inpatient chemical dependency treatment once earlier this year at [facility]. He reports having no interest in returning. FAMILY PSYCHIATRIC HISTORY: He reports several people on the mother's side of his family have depression and anxiety, no completed suicides in the family FAMILY CHEMICAL DEPENDENCY HISTORY: He reports all of his mother's side of the family have chemical dependency issues SOCIAL HISTORY: The patient is 32 years old he states he's been for 3 years. He states that his marriage is good but then also states they have trust issues with each other. He is now from his and is homeless. He has not seen his in several months and she is residing with her parents. He has no children. 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 Currently he is unemployed. He was expelled from school in 11th grade completed his GED and took some college classes. No history of experience. He is originally from [place] but mainly was raised in the [facility] since the age of 12. He has 1 half -brother and 2 half-sisters. Both parents are . He has technically been homeless and has been staying with friends in the [place] area. He states he came to this mental health unit as opposed to [place] because it seems safer. Musculoskeletal Examination - Abnormal/Involuntary Movements: [tremors Strength: [greater than antigravity (greater than/equal to 3/5) in all extremities, weakness:] Muscle Tone: [no impairment Gait: [limping, wide-based] Station: [unsteady] Mental Status Examination - General Appearance: [disheveled, bizarre, appears older than stated age Speech/Language: [ slow, slurred, rambled, mumbling, hesitant, halting, Attitude/Behavior: [ guarded, irritable, withdrawn, indifferent] Mood: [depressed, anxious, elated, irritable, angry, fearful, hopelessness] Affect: [flat, incongruent, labile, blunted constricted] Orientation: [time, person, place situation] Thought Content: [ delusions, obsessions, phobias, other] Risk Factors: [He is not suicidal (ideations, plan), and/or Homicidal (ideations , plan), other] Perception: [ hallucinations (auditory, visual Thought Processes: [concrete, circumstantial, tangential, other] Concentration/Attention Span: [impaired] [Per observation and interview with the patient] Recent Memory: [impaired] [0 out of 3 in 3 minutes] Remote Memory: [ impaired] [past events, as related history] Intelligence: [below average ] [based on history, based on vocabulary, syntax, grammar, and content] Judgement: [poor] [per patient's behavior/history of present illness] Insight: [ poor] [understanding severity of illness/history of present illness] Admitting Diagnosis: [Bipolar affective disorderacute psychosis: History of marijuana and use disorder and opiate use disorder.] Patient Strengths - Able to vocalize needs: [x] Motivation, determination, readiness for change: [x] Patient Limitations: [medication, non-compliance, pathological/unsupported environment, no interests, intellectual impairment, lack of social supports] Initial Plan of Care: [He has formal voluntary admitted to the psychiatric unit for depression and psychosis with a strong history of substance use. He will be placed on 15 minute checks for safety throughout his hospitalization. He will be evaluated by medicine, psychiatry, nursing staff, social work and recreational therapy. He will be placed in [facility] milieu therapeutic environment which is expected that he goes to groups and interacts with his peers and staff. I will start him on Invega and Depakote and discontinue his BuSpar and Seroquel since this is not appearing to be of little value. Invega 3 mg by mouth daily at bedtime, Depakote 250 mg by mouth twice a day. Also put him on Mobic 7.5 mg twice a day for pain and arthritic in origin.] Estimated Length of Stay: [] Initial Discharge Plan: [[facility], referred to therapist Prognosis: [guarded] Justification for Inpatient Hospitalization - [Hallucinations, delusions, agitation, anxiety, depression resulting in significant loss of functioning.] [Dangerous to self, others, or property with need for controlled environment.] [Emotional or behavioral conditions and complications requiring 24 hour medical and nursing care.] [Need for special drug therapy, or other therapeutic program requiring continuous hospitalization.] [Failure of social or occupational functioning.] [Inability to meet basic life and health needs.] Time with Patient: Greater than 30
[2018-10-09] MEDS: LORazepam 1 MG TAB PO PRN ×3 (10:22→21:04)
[2018-10-09] MEDS: IBUPROFEN 600 MG TAB PO PRN ×2 (10:48→17:36)
--- NOTE | 2018-10-09 10:52 | P.CONS ---
History of Present Illness - Reason for Consult Consult date: 10/09/18 Medical management - Chief Complaint Acute psychosis - History of Present Illness This is a 32-year-old male with past medical history significant for essential hypertension who presented to the emergency room with acute psychosis. Patient was at [facility] where he is admitted for treatment of polysubstance and alcohol abuse. He said that he was convinced that the government is trying to hurt him. He was hearing voices and seeing bruises on his body that do not exist. He was brought into the emergency room for further evaluation. He is currently admitted to the psych unit. He does not have any specific concerns or complaints. I was asked to see him for medical management. Patient told me that he was diagnosed with hep C for which she follow-up with a specialist. Review of Systems Review of system: 14 points review of systems were obtained and were negative except to what were mentioned in the HPI. Past Medical History Past Medical History: GERD/Reflux, Hypertension Additional Past Medical History / Comment(s): back pain , hep c, DDD, carpel tunnel History of Any Multi-Drug Resistant Organisms: None Reported Past Surgical History: No Surgical Hx Reported Past Psychological History: Anxiety, Depression Additional Psychological History / Comment(s): Oct 2017 and jun 2013 came her and sent to [facility]. pt has a hx of cutting. pt was seeing a lady at [facility] but not currently, pt was at [facility] for serivces and stopped going. Smoking Status: Current every day smoker Past Alcohol Use History: Occasional Past Drug Use History: Heroin, Marijuana, Prescription Drug Abuse Medications and Allergies Home Medications Medication Instructions Recorded Confirmed Type Acetaminophen Tab [Tylenol Tab] 650 mg PO Q4H PRN 10/08/18 10/08/18 History Calcium/Magnesium(Unknown Dose) 2 tab PO TID PRN 10/08/18 10/08/18 History Chlorpheniramine Maleate 4 mg PO Q4H PRN 10/08/18 10/08/18 History [Chlor-Trimeton] Hyoscyamine Sulfate [Levsin] 0.125 mg PO Q6H PRN 10/08/18 10/08/18 History Ibuprofen [Motrin] 600 mg PO Q6H PRN 10/08/18 10/08/18 History Lisinopril [Prinivil] 10 mg PO DAILY@0600 10/08/18 10/08/18 History Loperamide HCl [Imodium A-D] 2 mg PO QID PRN 10/08/18 10/08/18 History Multivitamins, Thera [Multivitamin 1 tab PO DAILY 10/08/18 10/08/18 History (formulary)] Nicotine 21Mg/24Hr Patch [Habitrol 1 patch TRANSDERM DAILY 10/08/18 10/08/18 History 21Mg/24Hr Patch] Ondansetron HCl [Zofran] 8 mg PO Q6H PRN 10/08/18 10/08/18 History Ondansetron [Zofran] 4 mg IM Q6H PRN 10/08/18 10/08/18 History QUEtiapine FUMARATE [SEROquel] 300 mg PO HS@2200 10/08/18 10/08/18 History Thiamine [Vitamin B-1] 100 mg PO DAILY 10/08/18 10/08/18 History Tigan 200mg 200 mg IM Q6H PRN 10/08/18 10/08/18 History Trimethobenzamide HCl [Tigan] 300 mg PO Q6H PRN 10/08/18 10/08/18 History busPIRone HCl [Buspar] 10 mg PO TID PRN 10/08/18 10/08/18 History cloNIDine HCL [Catapres] 0.1 mg PO TID PRN 10/08/18 10/08/18 History guaiFENesin [guaiFENesin Oral 200 mg PO Q4H PRN 10/08/18 10/08/18 History Solution] Allergies Allergy/AdvReac Type Severity Reaction Status Date / Time No Known Allergies Allergy Verified 10/08/18 21:35 Physical Exam Vitals: Vital Signs Temp Pulse Pulse Resp BP BP Pulse Ox 10/09/18 10:17 97.6 F 76 20 117/75 100 10/08/18 19:12 97.7 F 83 20 145/89 10/08/18 14:39 97.6 F 96 18 153/92 96 Intake and Output 10/08/18 10/09/18 10/09/18 22:59 06:59 14:59 Other: Weight 83.206 kg General: The patient is awake and alert, in no distress, and does not appear acutely ill. Eye: extra-ocular movements are intact; there is normal conjunctiva bilaterally. . Neck: The neck is supple, there is no tenderness or JVD. Cardiovascular: Normal S1-S2, no S3-S4, no murmurs. Respiratory: Lungs clear to auscultation bilaterally with no wheezes rhonchi or rales. Gastrointestinal: Abdomen is soft, nontender, nondistended, Musculoskeletal: Normal ROM, no tenderness, There is no pedal edema. Neurological: There are no obvious motor or sensory deficits. Speech is normal. Skin: Skin is warm and dry and no rashes or lesions are noted. Assessment and Plan Assessment: 1. Acute psychosis with hallucinations: Managed by psychiatry 2. Essential hypertension, blood pressure within acceptable range. Continue lisinopril 3. Chronic hepatitis C, and advised to follow-up outpatient as directed 4. History of Polysubstance abuse: Now treated at [facility]. Urine toxicology screen was negative 5. Tobacco abuse: Counseled extensively to quit Today, I reviewed his medication list. Continue current regimen. Management per psychiatry. We will continue to follow-up on him on an as-needed basis. Thank you very much for the consultation.
[2018-10-09 10:55] LABS: Basophils # (A) 0.1 k/uL (0-0.2); Basophils % (A) 1 %; Eosinophils # (A) 0.3 k/uL (0-0.7); Eosinophils % (A) 5 %; HCT 44.1 % (39.0-53.0); HGB 14.5 gm/dL (13.0-17.5); Lymphocytes # (A) 2.7 k/uL (1.0-4.8); Lymphocytes % (A) 41 %; MCH 28.5 pg (25.0-35.0); MCHC 32.7 g/dL (31.0-37.0); Monocytes # (A) 0.4 k/uL (0-1.0); Monocytes % (A) 6 %; Neutrophils # (A) 2.8 k/uL (1.3-7.7); Neutrophils % (A) 44 %; Platelet Count 251 k/uL (150-450); RBC 5.07 m/uL (4.30-5.90); RDW 14.7 % (11.5-15.5); WBC 6.5 k/uL (3.8-10.6)
[2018-10-09 11:08] LABS: ALT 32 U/L (21-72); AST 29 U/L (17-59); Albumin 4.3 g/dL (3.5-5.0); Alkaline Phosphatase 35 U/L (38-126); Anion Gap 8 mmol/L; Bilirubin, Delta 0.4 mg/dL (0.0-0.2); Blood Urea Nitrogen 16 mg/dL (9-20); Calcium 10.1 mg/dL (8.4-10.2); Carbon Dioxide 25 mmol/L (22-30); Chloride 112 mmol/L (98-107); Cholesterol 157 mg/dL (<200); Glucose 87 mg/dL (74-99); HDL Cholesterol 37 mg/dL (40-60); LDL Cholesterol,Calculated 95 mg/dL (0-99); Potassium 5.2 mmol/L (3.5-5.1); Sodium 145 mmol/L (137-145); Total Bilirubin 0.4 mg/dL (0.2-1.3); Total Protein 8.2 g/dL (6.3-8.2); Triglycerides 124 mg/dL (<150)
[2018-10-09] MEDS ORDERED: ZIPRASIDONE 20 MG VIAL IM ONE (12:48)
[2018-10-09] MEDS: diphenhydrAMINE 25 MG CAP PO PRN ×2 (12:48→18:56)
[2018-10-09] MEDS ORDERED: WATER FOR INJECTION, STERILE 10 ML IV ONE (12:48)
[2018-10-09] MEDS: ZIPRASIDONE 20 MG VIAL IM PRN ×2 (12:49→21:04)
[2018-10-09] MEDS: ACETAMINOPHEN TAB 325 MG TAB PO PRN (12:49)
[2018-10-09] MEDS: cloNIDine HCL 0.1 MG TAB PO SCH ×2 (17:36→19:44)
[2018-10-09] MEDS: MELOXICAM 7.5 MG TAB PO SCH (19:42)
[2018-10-09] MEDS: DIVALPROEX 250 MG TABLET.DR PO SCH (19:42)
[2018-10-09] MEDS ORDERED: PALIPERIDONE 3 MG TAB.ER.24 PO SCH (21:00)
[2018-10-09 21:23] LABS: Hemoglobin A1C 4.8 % (4.0-6.0)
--- NOTE | 2018-10-09 22:36 | P.HPMEDMHU ---
History of Present Illness H&P Date: 10/08/18 Chief Complaint: Consult for MHU HPI The patient is a 32-year-old male the past focal history of depression and anxiety and schizophrenia who is transferred here from [place] due to ongoing paranoid delusions and medication noncompliance. Patient has been reporting delusions about the government trying to kill him and also reported that the double is trying to recruit people to kill. He reports several command auditory hallucinations. Apparently the patient was given Ativan in the ER, and subsequently stumbled and hit his right shoulder and the right side of his head and is now complaining of pain. The patient reports a history of essential hypertension, coronary disease, GERD, history of polysubstance drug abuse with methamphetamine, opiates and marijuana. Review of Systems Pertinent positives per HPI all other review of systems are otherwise negative Past Medical History Past Medical History: GERD/Reflux, Hypertension Additional Past Medical History / Comment(s): back pain , hep c, DDD, carpel tunnel History of Any Multi-Drug Resistant Organisms: None Reported Past Surgical History: No Surgical Hx Reported Past Psychological History: Anxiety, Depression Additional Psychological History / Comment(s): Oct 2017 and jun 2013 came her [facility]. pt has a hx of cutting. pt was seeing a lady at [facility] but not currently, pt was at [facility] for serivces and stopped going. Smoking Status: Current every day smoker Past Alcohol Use History: Occasional Past Drug Use History: Heroin, Marijuana, Prescription Drug Abuse Medications and Allergies Home Medications Medication Instructions Recorded Confirmed Type Acetaminophen Tab [Tylenol Tab] 650 mg PO Q4H PRN 10/08/18 10/08/18 History Calcium/Magnesium(Unknown Dose) 2 tab PO TID PRN 10/08/18 10/08/18 History Chlorpheniramine Maleate 4 mg PO Q4H PRN 10/08/18 10/08/18 History [Chlor-Trimeton] Hyoscyamine Sulfate [Levsin] 0.125 mg PO Q6H PRN 10/08/18 10/08/18 History Ibuprofen [Motrin] 600 mg PO Q6H PRN 10/08/18 10/08/18 History Lisinopril [Prinivil] 10 mg PO DAILY@0600 10/08/18 10/08/18 History Loperamide HCl [Imodium A-D] 2 mg PO QID PRN 10/08/18 10/08/18 History Multivitamins, Thera [Multivitamin 1 tab PO DAILY 10/08/18 10/08/18 History (formulary)] Nicotine 21Mg/24Hr Patch [Habitrol 1 patch TRANSDERM DAILY 10/08/18 10/08/18 History 21Mg/24Hr Patch] Ondansetron HCl [Zofran] 8 mg PO Q6H PRN 10/08/18 10/08/18 History Ondansetron [Zofran] 4 mg IM Q6H PRN 10/08/18 10/08/18 History QUEtiapine FUMARATE [SEROquel] 300 mg PO HS@2200 10/08/18 10/08/18 History Thiamine [Vitamin B-1] 100 mg PO DAILY 10/08/18 10/08/18 History Tigan 200mg 200 mg IM Q6H PRN 10/08/18 10/08/18 History Trimethobenzamide HCl [Tigan] 300 mg PO Q6H PRN 10/08/18 10/08/18 History busPIRone HCl [Buspar] 10 mg PO TID PRN 10/08/18 10/08/18 History cloNIDine HCL [Catapres] 0.1 mg PO TID PRN 10/08/18 10/08/18 History guaiFENesin [guaiFENesin Oral 200 mg PO Q4H PRN 10/08/18 10/08/18 History Solution] Allergies Allergy/AdvReac Type Severity Reaction Status Date / Time No Known Allergies Allergy Verified 10/08/18 21:35 Physical Exam Vitals: Vital Signs Temp Pulse Pulse Resp BP BP Pulse Ox 10/08/18 19:12 97.7 F 83 20 145/89 10/08/18 14:39 97.6 F 96 18 153/92 96 Intake and Output 10/08/18 10/08/18 10/08/18 06:59 14:59 22:59 Other: Weight 81.193 kg 83.206 kg Constitutional: No acute distress, conversant, pleasant Eyes: Anicteric sclerae, moist conjunctiva, no lid-lag, PERRLA ENMT: NC/AT,Oropharynx clear, no erythema, exudates Neck:Supple, FROM, no masses, or JVD, No carotid bruits; No thyromegaly Lungs: Clear to auscultation, Clear to percussion, Normal respiratory effort, no accessory muscle use Cardiovascular: Heart regular in rate and rhythm, No murmurs, gallops, or rubs no peripheral edema Abdominal: Soft Nontender, nom distended, no guarding, no rebound or rigidity, Normoactive bowel sounds No hepatomegaly, No splenomegaly, No palpable mass No abdominal wall hernia noted Skin: Normal temperature, tone, texture, turgor, No induration No subcutaneous nodules, No rash, lesions, No ulcers Extremities:No digital cyanosis No clubbing, Pedal pulses intact and symmetrical Radial pulses intact and symmetrical Normal gait and station, No calf tenderness Psychiatric: Alert and oriented to person, place and time, Appropriate affect Intact judgement Neuro: Muscles Strength 5/5 in all 4 extremities, Sensation to light touch grossly present throughout, Cranial nerves II-XII grossly intact. No focal sensory deficits Cranial Nerve Examination - Cranial Nerves Cranial Nerve II- Optic: Intact Cranial Nerve III- Oculomotor: Intact Cranial Nerve IV- Trochlear: Intact Cranial Nerve V- Trigeminal: Intact Cranial Nerve - Abducens: Intact Cranial Nerve VII- Facial: Intact Cranial Nerve VIII- Auditory: Intact Cranial Nerve IX- Glossopharyngeal: Intact Cranial Nerve X- Vagus: Intact Cranial Nerve XI- Accessory: Intact Cranial Nerve XII- Hypoglossal: Intact Results CBC & Chem 7: 10/09/18 10:24 10/09/18 10:24 Thrombosis Risk Factor Assmnt - Choose All That Apply Each Factor Represents 1 point: Obesity (BMI >25) Thrombosis Risk Factor Assessment Total Risk Factor Score: 1 Thrombosis Risk Factor Assessment Level: Low Risk Assessment and Plan (1) Polysubstance abuse Current Visit: Yes Status: Acute Code(s): F19.10 - OTHER PSYCHOACTIVE SUBSTANCE ABUSE, UNCOMPLICATED SNOMED Code(s): 474739726 (2) Paranoia (psychosis) Current Visit: Yes Status: Acute Code(s): F22 - DELUSIONAL DISORDERS SNOMED Code(s): 316190242 (3) Essential hypertension Current Visit: Yes Status: Acute Code(s): I10 - ESSENTIAL (PRIMARY) HYPERTENSION SNOMED Code(s): 64965203 (4) Depression Current Visit: No Status: Acute Code(s): F32.9 - MAJOR DEPRESSIVE DISORDER, SINGLE EPISODE, UNSPECIFIED SNOMED Code(s): 11560355 Plan: The patient is admitted to the mental health unit with acute psychosis with acute paranoid delusions, will defer to inpatient psychiatry team regarding ongoing psychotropic therapy in coordination with CBT. Medically speaking patient is doing fine, blood pressure seems to be controlled we'll resume lisinopril and clonidine. Admission labs pending, will plan to sign off pending lab work I Appreciate opportunity to be involved in ongoing care of this patient. For further questions please not hesitate to contact Inpatient Team
[2018-10-10] MEDS: diphenhydrAMINE 25 MG CAP PO PRN (02:39)
[2018-10-10 02:51] VITALS: TEMP 97.8
[2018-10-10] MEDS: LISINOPRIL 10 MG TAB PO SCH (05:39)
[2018-10-10] MEDS: LORazepam 1 MG TAB PO PRN (05:44)
[2018-10-10] MEDS: IBUPROFEN 600 MG TAB PO PRN ×2 (05:52→11:30)
[2018-10-10] MEDS: DIVALPROEX 250 MG TABLET.DR PO SCH (07:50)
[2018-10-10] MEDS: NICOTINE 14MG/24HR PATCH TRANSDERM SCH (07:50)
[2018-10-10] MEDS: MELOXICAM 7.5 MG TAB PO SCH (07:50)
[2018-10-10] MEDS: THIAMINE 100 MG TAB PO SCH (07:51)
[2018-10-10] MEDS: cloNIDine HCL 0.1 MG TAB PO SCH (07:51)
[2018-10-10 07:54] VITALS: BP 142/73; PULSE 102; RESP 18
[2018-10-10] MEDS ORDERED: hydrOXYzine PAMOATE 25 MG CAP PO STA (08:36)
[2018-10-10] MEDS ORDERED: HALOPERIDOL LACTATE 5 MG/ML 1 ML VIAL IM PRN (10:22)
--- NOTE | 2018-10-10 11:00 | P.DS ---
Providers Date of admission: 10/08/18 17:53 Expected date of discharge: 10/10/18 Attending physician: Mike Castellanos DO Consults: 10/08/18 18:53 Consult Physician Routine Consulting Provider: Doron James Consult Reason/Comments: H & P and medical care Do you want consulting provider notified?: Yes Primary care physician: Stated None - Discharge Diagnosis(es) (1) Substance abuse HPI Patient is a pleasant 32-year-old male presenting to the emergency department for mental health evaluation. Patient is transferred from [place]. Patient has been there since September 25 for opiate and alcohol abuse. Patient admits to previously injecting heroin. Patient states he was sent here because he told somebody he feels the government is trying to kill him. Patient states several years ago he was injected with meh[employer] technology. Patient believes the [employer] is reading has thoughts. Patient states his [id number] may have convinced him to believe these thoughts. Patient has tried to get in to see [facility] however has not been in there yet. Patient did abrade his left arm several times previously, last was beginning of this month. No homicidal thoughts. Patient states the roommate that he is at [facility] right now used to live 3 doors down or he was stained with his in-laws. He believes this person also works for the [employer]. No current suicidal thoughts. Patient questions if these problems he is having is real or if he could be schizophrenic. Patient states he has never been diagnosed with schizophrenia and is not supposed to be on any medication for this. Current Visit: No Status: Acute Hospital Course: Patient was unit yesterday admitted from [facility] and wants to leave today. He meets no criteria for active psychosis nor is a harm to himself or others. Since he wants to leave AMA no medications were reviewed from. He states he has to go to court today otherwise she could end up in [facility]. He says he can follow up with [facility]. Therefore his discharge. Patient Condition at Discharge: Stable Plan - Discharge Summary New Discharge Prescriptions: Discontinued cloNIDine HCL [Catapres] 0.1 mg PO TID PRN PRN Reason: BP>160/100 Loperamide HCl [Imodium A-D] 2 mg PO QID PRN PRN Reason: Diarrhea Hyoscyamine Sulfate [Levsin] 0.125 mg PO Q6H PRN PRN Reason: Gi Upset Chlorpheniramine Maleate [Chlor-Trimeton] 4 mg PO Q4H PRN PRN Reason: Allergy Symptoms Ibuprofen [Motrin] 600 mg PO Q6H PRN PRN Reason: Pain Acetaminophen Tab [Tylenol Tab] 650 mg PO Q4H PRN PRN Reason: Pain Trimethobenzamide HCl [Tigan] 300 mg PO Q6H PRN PRN Reason: Nausea Tigan 200mg 200 mg IM Q6H PRN PRN Reason: Nausea Ondansetron [Zofran] 4 mg IM Q6H PRN PRN Reason: Nausea Ondansetron HCl [Zofran] 8 mg PO Q6H PRN PRN Reason: Nausea busPIRone HCl [Buspar] 10 mg PO TID PRN PRN Reason: Anxiety Nicotine 21Mg/24Hr Patch [Habitrol 21Mg/24Hr Patch] 1 patch TRANSDERM DAILY Lisinopril [Prinivil] 10 mg PO DAILY@0600 QUEtiapine FUMARATE [SEROquel] 300 mg PO HS@2200 Thiamine [Vitamin B-1] 100 mg PO DAILY Multivitamins, Thera [Multivitamin (formulary)] 1 tab PO DAILY guaiFENesin [guaiFENesin Oral Solution] 200 mg PO Q4H PRN PRN Reason: Cough Calcium/Magnesium(Unknown Dose) 2 tab PO TID PRN PRN Reason: Muscle Pain Follow up Appointment(s)/Referral(s): None,Stated [Primary Care Provider] - 1-2 days
[2018-10-10] MEDS: ACETAMINOPHEN TAB 325 MG TAB PO PRN (11:31)
[2018-10-10] MEDS: MULTIVITAMINS, THERA 1 EACH TAB PO SCH (12:23)
[2018-10-10] MEDS ORDERED: DIVALPROEX 500 MG TABLET.DR PO SCH (13:00)
[2018-10-10] MEDS ORDERED: cloNIDine HCL 0.2 MG TAB PO SCH (16:00)
[2018-10-10 18:46] LABS: Hepatitis C IgG Antibody Reactive (Non-Reactive)
[2018-10-10] MEDS ORDERED: PALIPERIDONE 6 MG TAB.ER.24 PO SCH (21:00)
== END 2018-10-10 12:40 | disposition home or self-care (01) | DRG 885 ==
LOC: EC 14:37 → 3MHU 17:53
PROVIDERS: ADMIT Psychiatry & Neurology Psychiatry; ATTEND Psychiatry & Neurology Psychiatry
DX: F23 Brief psychotic disorder (principal); B18.2 Chronic viral hepatitis C; F10.10 Alcohol abuse, uncomplicated; F11.10 Opioid abuse, uncomplicated; F12.10 Cannabis abuse, uncomplicated; F17.200 Nicotine dependence, unspecified, uncomplicated; F41.9 Anxiety disorder, unspecified; I10 Essential (primary) hypertension; K21.9 Gastro-esophageal reflux disease without esophagitis; Z59.0 Homelessness; Z91.19 Patient's noncompliance with other medical treatment and regimen; Z91.5 Personal history of self-harm; Z71.6 Tobacco abuse counseling; Z79.899 Other long term (current) drug therapy
CPT/HCPCS: 80053; 80061; 80306; 82075; 82248; 83036; 84443; 85025; 86701; 86704; 86803; 87340; 96372; 99284

== ENCOUNTER 2019-02-13 17:58 | Inpatient (IN) | payer MEDICAID, OTHER ==
[2019-02-13] MEDS ORDERED: DIPH,PERTUS(ACELL)TETVAC-LF 0.5 ML VIAL IM ONE (18:37)
--- NOTE | 2019-02-13 18:42 | ED ---
Psych HPI - General Chief Complaint: Psychiatric Symptoms Stated Complaint: Sucidal Time Seen by Provider: 02/13/19 18:07 Source: patient, police, RN notes reviewed Mode of arrival: ambulatory Limitations: no limitations - History of Present Illness Initial Comments: 33-year-old male presents emergency Department with police for psychiatric evaluation. Patient reported called police because he stated he was suicidal. Patient has been attempting to run into traffic and also has cut himself superficially multiple times with his night. Patient states that he is life is over. Patient states that he has to go to care home because he has a warrant. He does have a history of drug abuse and does take alcohol regularly. Patient denies any chest pain, shortness breath, headache, dizziness, nausea vomiting diarrhea constipation. - Related Data Allergies Allergy/AdvReac Type Severity Reaction Status Date / Time No Known Allergies Allergy Verified 02/13/19 18:05 Review of Systems ROS Statement: Those systems with pertinent positive or pertinent negative responses have been documented in the HPI. ROS Other: All systems not noted in ROS Statement are negative. Past Medical History Past Medical History: GERD/Reflux, Hypertension Additional Past Medical History / Comment(s): back pain , hep c, DDD, carpel tunnel History of Any Multi-Drug Resistant Organisms: None Reported Past Surgical History: No Surgical Hx Reported Past Psychological History: Anxiety, Depression Smoking Status: Current every day smoker Past Alcohol Use History: Occasional Past Drug Use History: Heroin, Marijuana, Prescription Drug Abuse General Exam Limitations: no limitations General appearance: alert, in no apparent distress, anxious Head exam: Present: atraumatic, normocephalic, normal inspection Eye exam: Present: normal appearance, PERRL, EOMI. Absent: scleral icterus, conjunctival injection, periorbital swelling ENT exam: Present: normal exam, normal oropharynx, mucous membranes moist Neck exam: Present: full ROM. Absent: normal inspection (Superficial lacerati ons), tenderness, meningismus, lymphadenopathy Respiratory exam: Present: normal lung sounds bilaterally. Absent: respiratory distress, wheezes, rales, rhonchi, stridor Cardiovascular Exam: Present: normal rhythm, tachycardia, normal heart sounds. Absent: systolic murmur, diastolic murmur, rubs, gallop, clicks GI/Abdominal exam: Present: soft, normal bowel sounds. Absent: distended, tenderness, guarding, rebound, rigid Extremities exam: Absent: normal inspection (Multiple superficial lacerations noted) Neurological exam: Present: alert, oriented X3, CN II-XII intact Psychiatric exam: Present: agitated, anxious Skin exam: Present: warm, dry, intact, normal color. Absent: rash Course Vital Signs 02/13/19 18:02 Temperature 97.8 F Pulse Rate 107 H Respiratory 16 Rate Blood Pressure 108/70 O2 Sat by Pulse 100 Oximetry Medical Decision Making - Medical Decision Making 33-year-old male present emergency department for second evaluation. Patient was evaluated by EPS case discussed with on-call psychiatrist recommends inpatient treatment. - Lab Data Lab Results 02/13/19 Range/Units 18:42 Urine Opiates Screen Detected H (NotDetected) Ur Oxycodone Screen Not Detected (NotDetected) Urine Methadone Screen Not Detected (NotDetected) Ur Propoxyphene Screen Not Detected (NotDetected) Ur Barbiturates Screen Not Detected (NotDetected) U Tricyclic Antidepress Not Detected (NotDetected) Ur Phencyclidine Scrn Not Detected (NotDetected) Ur Amphetamines Screen Detected H (NotDetected) U Methamphetamines Scrn Detected H (NotDetected) U Benzodiazepines Scrn Not Detected (NotDetected) Urine Cocaine Screen Not Detected (NotDetected) U Marijuana (THC) Screen Detected H (NotDetected) Disposition Clinical Impression: Polysubstance abuse, Suicidal ideation, Depression Disposition: TRANSFER TO PSYCH HOSP/UNIT Condition: Stable Referrals: None,Stated [Primary Care Provider] - 1-2 days
[2019-02-13 19:03] LABS: Amphetamine Screen,Urine Detected (NotDetected); Barbiturate Screen,Urine Not Detected (NotDetected); Benzodiazepines Screen,Urine Not Detected (NotDetected); Cocaine Screen,Urine Not Detected (NotDetected); Methadone Screen, Urine Not Detected (NotDetected); Opiate Screen,Urine Detected (NotDetected); Oxycodone Screen, Urine Not Detected (NotDetected); Phencyclidine Screen,Urine Not Detected (NotDetected); Tricyclic Antidepressant,Urine Not Detected (NotDetected); Urn Cannabinoid Scrn Detected (NotDetected)
[2019-02-13] MEDS ORDERED: MAG HYDROX/AL HYDROX/SIMETH 30 ML CUP PO PRN (20:55)
[2019-02-13] MEDS ORDERED: MAGNESIUM HYDROXIDE 2,400 MG/10 ML CUP PO PRN (20:55)
[2019-02-13] MEDS ORDERED: LORazepam 2 MG/ML INJ IM PRN (21:00)
[2019-02-13] MEDS: ACETAMINOPHEN TAB 325 MG TAB PO PRN (21:47)
[2019-02-13] MEDS: LORazepam 1 MG TAB PO PRN (21:47)
[2019-02-13] MEDS: NICOTINE 14MG/24HR PATCH TRANSDERM SCH (21:47)
--- NOTE | 2019-02-14 00:04 | P.MDCNMH ---
History of Present Illness H&P Date: 02/13/19 Chief Complaint: medical evaluation 33 year old male with history of hypertension and depression Patient was brought into the hospital by police for psychiatric evaluation. Patient notified police for suicidal ideation patient feels very depressed and hopeless and he thinks he should he had plans to cut himself or jump onto traffic. He used a knife to cut over his neck and left forearm patient admits to using crystal meth injections and smoking marijuana. He currently denies any medical complaints denies any chest pain or trouble breathing denies any fevers or chills. He denies any abdominal pain nausea or vomiting Patient has multiple scabs over his lower extremities he denies any pruritic rash but reports that he picks up on his skin over pimples that shows up sometimes. Patient reports history of heart disease and hypertension however he is not taking any medications at home as he is unable to afford visiting a doctor Review of Systems Pertinent positives as noted in HPI. All other systems were reviewed and are negative Past Medical History Past Medical History: GERD/Reflux, Hypertension Additional Past Medical History / Comment(s): back pain , hep c, DDD, carpel tunnel History of Any Multi-Drug Resistant Organisms: None Reported Past Surgical History: No Surgical Hx Reported Past Psychological History: Anxiety, Depression Smoking Status: Current every day smoker Past Alcohol Use History: Occasional Past Drug Use History: Heroin, Marijuana, Prescription Drug Abuse Medications and Allergies Allergies Allergy/AdvReac Type Severity Reaction Status Date / Time No Known Allergies Allergy Verified 02/13/19 18:05 Physical Exam Vitals: Vital Signs Temp Pulse Resp BP Pulse Ox 02/13/19 18:02 97.8 F 107 H 16 108/70 100 Intake and Output 02/13/19 02/13/19 02/14/19 14:59 22:59 06:59 Other: Weight 74.843 kg Constitutional: No acute distress, withdrawn avoids eye contact Eyes: Anicteric sclerae, moist conjunctiva, no lid-lag Pupils equal round reactive to light ENMT: NC/AT Oropharynx clear, no erythema, exudates Neck: Supple, FROM, no masses, or JVD No carotid bruits No thyromegaly Lungs: Clear to auscultation Clear to percussion Normal respiratory effort, no accessory muscle use Cardiovascular: Heart regular in rate and rhythm, No murmurs, gallops, or rubs No peripheral edema Abdominal: Soft Nontender, no guarding, rebound or rigidity Abdomen moving with respiration Normoactive bowel sounds No hepatomegaly, No splenomegaly No palpable mass No abdominal wall hernia noted Skin: Multiple scabs small in size over bilateral lower extremities no jered ration minimal erythema surrounding the base no active bleeding or drainage. Multiple superficial cuts over his right side of the neck and left forearm Normal temperature, tone, texture, turgor No induration No subcutaneous nodules Extremities: No digital cyanosis No clubbing Pedal pulses intact and symmetrical Radial pulses intact and symmetrical No calf tenderness Psychiatric: Alert and oriented to person, place and time Depressed affect Poor judgment Neuro Muscles Strength 5/5 in all 4 extremities Sensation to light touch grossly present throughout Cranial nerves II-XII grossly intact No focal sensory deficits Lymphatics: no palpable cervical or supraclavicular , or inguinal lymph nodes Cranial Nerve Examination - Cranial Nerves Cranial Nerve II- Optic: Intact Cranial Nerve III- Oculomotor: Intact Cranial Nerve IV- Trochlear: Intact Cranial Nerve V- Trigeminal: Intact Cranial Nerve - Abducens: Intact Cranial Nerve VII- Facial: Intact Cranial Nerve VIII- Auditory: Intact Cranial Nerve IX- Glossopharyngeal: Intact Cranial Nerve X- Vagus: Intact Cranial Nerve XI- Accessory: Intact Cranial Nerve XII- Hypoglossal: Intact Results Labs: Abnormal Lab Results - Last 24 Hours (Table) 02/13/19 Range/Units 18:42 Urine Opiates Screen Detected H (NotDetected) Ur Amphetamines Screen Detected H (NotDetected) U Methamphetamines Scrn Detected H (NotDetected) U Marijuana (THC) Screen Detected H (NotDetected) Assessment and Plan Assessment: 33-year-old male with hypertension and depression presented due to suicidal ideation medicine consulted for medical management of his hypertension Plan: Depression and suicidal ideation Management per psych History of Hypertension Patient doesn't take any medications at home Multiple superficial cuts over his neck and left forearm Local wound care Multiple scabs over bilateral lower extremities, local skin care and emollients Low risk for DVT patient is ambulatory History of hepatitis C outpatient follow-up Polysubstance abuse Patient counseled to quit drug of abuse Follow-up labs Thank you for allowing us to participate in the care of this patient. We will follow peripherally. Do not hesitate to contact us with questions. Someone can be reached from the [facility] hospitalist group at all hours of the day at [phone].
[2019-02-14] MEDS: ACETAMINOPHEN TAB 325 MG TAB PO PRN ×2 (05:14→13:42)
[2019-02-14] MEDS: LORazepam 1 MG TAB PO PRN ×3 (05:18→20:34)
[2019-02-14] MEDS ORDERED: WATER FOR INJECTION, STERILE 10 ML IV ONE (08:14)
[2019-02-14] MEDS ORDERED: ZIPRASIDONE 20 MG VIAL IM ONE (08:14)
[2019-02-14] MEDS: ZIPRASIDONE 20 MG VIAL IM PRN ×2 (08:16→21:23)
[2019-02-14] MEDS: NICOTINE 14MG/24HR PATCH TRANSDERM SCH (09:00)
[2019-02-14 09:29] LABS: Basophils # (A) 0.1 k/uL (0-0.2); Basophils % (A) 1 %; Eosinophils # (A) 0.3 k/uL (0-0.7); Eosinophils % (A) 3 %; HGB 13.4 gm/dL (13.0-17.5); Lymphocytes # (A) 2.3 k/uL (1.0-4.8); Lymphocytes % (A) 24 %; MCH 28.3 pg (25.0-35.0); MCHC 31.9 g/dL (31.0-37.0); MCV 88.5 fL (80.0-100.0); Mean Platelet Volume 7.6; Monocytes # (A) 0.4 k/uL (0-1.0); Monocytes % (A) 4 %; Neutrophils # (A) 6.5 k/uL (1.3-7.7); Neutrophils % (A) 67 %; Platelet Count 305 k/uL (150-450); RBC 4.74 m/uL (4.30-5.90); RDW 13.9 % (11.5-15.5); WBC 9.8 k/uL (3.8-10.6)
[2019-02-14 09:47] LABS: ALT 34 U/L (21-72); AST 23 U/L (17-59); Albumin 3.4 g/dL (3.5-5.0); Alkaline Phosphatase 48 U/L (38-126); Anion Gap 6 mmol/L; Bilirubin, Delta 0.2 mg/dL (0.0-0.2); Bilirubin,Unconjugated 0.1 mg/dL (0.0-1.1); Blood Urea Nitrogen 12 mg/dL (9-20); Calcium 9.2 mg/dL (8.4-10.2); Carbon Dioxide 28 mmol/L (22-30); Chloride 106 mmol/L (98-107); Cholesterol 128 mg/dL (<200); Glucose 94 mg/dL (74-99); HDL Cholesterol 34 mg/dL (40-60); LDL Cholesterol,Calculated 76 mg/dL (0-99); Potassium 4.6 mmol/L (3.5-5.1); Sodium 140 mmol/L (137-145); Total Bilirubin 0.3 mg/dL (0.2-1.3); Total Protein 6.9 g/dL (6.3-8.2); Triglycerides 89 mg/dL (<150)
--- NOTE | 2019-02-14 10:20 | XR ---
EXAMINATION TYPE: XR knee limited RT DATE OF EXAM: 02/14/2019 COMPARISON: NONE HISTORY: Pain TECHNIQUE: tWO views are submitted. FINDINGS: Joint spaces are preserved. Osseous structures are intact. No acute fracture seen. IMPRESSION: 1. No acute fracture or dislocation.
--- NOTE | 2019-02-14 11:28 | P.HP ---
Psychiatric H&P - . H&P Date: 02/14/19 History & Physical: Allergies Allergy/AdvReac Type Severity Reaction Status Date / Time No Known Allergies Allergy Verified 02/14/19 07:34 Vital Signs Temp 98.0 F 02/14/19 00:20 Pulse 81 02/14/19 05:30 Resp 16 02/14/19 00:20 BP 136/81 02/14/19 05:30 Pulse Ox 98 02/13/19 21:00 Intake & Output 02/13/19 02/14/19 02/14/19 18:59 06:59 18:59 Weight 74.843 kg 72.8 kg Laboratory Last Values WBC 9.8 k/uL (3.8-10.6) 02/14/19 08:50 RBC 4.74 m/uL (4.30-5.90) 02/14/19 08:50 Hgb 13.4 gm/dL (13.0-17.5) 02/14/19 08:50 Hct 42.0 % (39.0-53.0) 02/14/19 08:50 MCV 88.5 fL (80.0-100.0) 02/14/19 08:50 MCH 28.3 pg (25.0-35.0) 02/14/19 08:50 MCHC 31.9 g/dL (31.0-37.0) 02/14/19 08:50 RDW 13.9 % (11.5-15.5) 02/14/19 08:50 Plt Count 305 k/uL (150-450) 02/14/19 08:50 Neutrophils % 67 % 02/14/19 08:50 Lymphocytes % 24 % 02/14/19 08:50 Monocytes % 4 % 02/14/19 08:50 Eosinophils % 3 % 02/14/19 08:50 Basophils % 1 % 02/14/19 08:50 Neutrophils # 6.5 k/uL (1.3-7.7) 02/14/19 08:50 Lymphocytes # 2.3 k/uL (1.0-4.8) 02/14/19 08:50 Monocytes # 0.4 k/uL (0-1.0) 02/14/19 08:50 Eosinophils # 0.3 k/uL (0-0.7) 02/14/19 08:50 Basophils # 0.1 k/uL (0-0.2) 02/14/19 08:50 Sodium 140 mmol/L (137-145) 02/14/19 08:50 Potassium 4.6 mmol/L (3.5-5.1) 02/14/19 08:50 Chloride 106 mmol/L (98-107) 02/14/19 08:50 Carbon Dioxide 28 mmol/L (22-30) 02/14/19 08:50 Anion Gap 6 mmol/L 02/14/19 08:50 BUN 12 mg/dL (9-20) 02/14/19 08:50 Creatinine 0.70 mg/dL (0.66-1.25) 02/14/19 08:50 Est GFR (CKD-EPI)AfAm >90 (>60 ml/min/1.73 sqM) 02/14/19 08:50 Est GFR (CKD-EPI)NonAf >90 (>60 ml/min/1.73 sqM) 02/14/19 08:50 Glucose 94 mg/dL (74-99) 02/14/19 08:50 Calcium 9.2 mg/dL (8.4-10.2) 02/14/19 08:50 Total Bilirubin 0.3 mg/dL (0.2-1.3) 02/14/19 08:50 Conjugated Bilirubin 0.0 mg/dL (0.0-0.3) 02/14/19 08:50 Unconjugated Bilirubin 0.1 mg/dL (0.0-1.1) 02/14/19 08:50 Delta Bilirubin 0.2 mg/dL (0.0-0.2) 02/14/19 08:50 AST 23 U/L (17-59) 02/14/19 08:50 ALT 34 U/L (21-72) 02/14/19 08:50 Alkaline Phosphatase 48 U/L (38-126) 02/14/19 08:50 Total Protein 6.9 g/dL (6.3-8.2) 02/14/19 08:50 Albumin 3.4 g/dL (3.5-5.0) L 02/14/19 08:50 Triglycerides 89 mg/dL (<150) 02/14/19 08:50 Cholesterol 128 mg/dL (<200) 02/14/19 08:50 LDL Cholesterol, Calc 76 mg/dL (0-99) 02/14/19 08:50 HDL Cholesterol 34 mg/dL (40-60) L 02/14/19 08:50 TSH 0.904 mIU/L (0.465-4.680) 02/14/19 08:50 Urine Opiates Screen Detected (NotDetected) H 02/13/19 18:42 Ur Oxycodone Screen Not Detected (NotDetected) 02/13/19 18:42 Urine Methadone Screen Not Detected (NotDetected) 02/13/19 18:42 Ur Propoxyphene Screen Not Detected (NotDetected) 02/13/19 18:42 Ur Barbiturates Screen Not Detected (NotDetected) 02/13/19 18:42 U Tricyclic Antidepress Not Detected (NotDetected) 02/13/19 18:42 Ur Phencyclidine Scrn Not Detected (NotDetected) 02/13/19 18:42 Ur Amphetamines Screen Detected (NotDetected) H 02/13/19 18:42 U Methamphetamines Scrn Detected (NotDetected) H 02/13/19 18:42 U Benzodiazepines Scrn Not Detected (NotDetected) 02/13/19 18:42 Urine Cocaine Screen Not Detected (NotDetected) 02/13/19 18:42 U Marijuana (THC) Screen Detected (NotDetected) H 02/13/19 18:42 Assessment and Plan Assessment: This is a 33-year-old male presents emergency Department with police for psychiatric evaluation. Patient reported called police because he stated he was suicidal. Patient has been attempting to run into traffic and also has cut himself superficially multiple times with his night. Patient states that he is life is over. Patient states that [facility] because [facility] has [facility]. He does have a history of drug abuse and does take alcohol regularly. Patient denies any chest pain, shortness breath, headache, dizziness, nausea vomiting diarrhea constipation. - Related Data Allergies Allergy/AdvReac Type Severity Reaction Status Date / Time No Known Allergies Allergy Verified 02/13/19 18:05 Past Medical History Assisted Hold Past Medical History: GERD/Reflux, Hypertension Additional Past Medical History / Comment(s): back pain , hep c, DDD, carpel tunnel History of Any Multi-Drug Resistant Organisms: None Reported Past Surgical History: No Surgical Hx Reported Past Psychological History: Anxiety, Depression Smoking Status: Current every day smoker Past Alcohol Use History: Occasional Past Drug Use History: Heroin, Marijuana, Prescription Drug Abuse PAST PSYCHIATRIC HISTORY: This is the patient's third inpatient psychiatric admission others were at [facility] and in [place]. He endorses a total of 3 suicide attempts to involving overdoses and one involving cutting his wrist. He has worked with [facility] in the past but his case was closed due to noncompliance with appointments. He has been treated with Wellbutrin and Lexapro Xanax Thorazine clonidine and trazodone in the past. He states Lexapro was the most helpful in reducing depressive symptoms. PMH: Hepatitis C, he reports his blood pressure can be elevated at times. He presumes he contracted the hepatitis C via intravenous drug use ALLERGIES: NO KNOWN DRUG ALLERGIES MEDICATIONS: None CHEMICAL DEPENDENCY HISTORY: The patient reports using alcohol 3 times a week having 2 beers at a time, he uses marijuana 3 times a week, he has been using Suboxone and Vicodin to keep from relapsing on heroin. He states he has been clean from heroin for approximately 3 months. He reports no regular use of cocaine. He has been in inpatient chemical dependency treatment once earlier this year at [facility]. He reports having no interest in returning. FAMILY PSYCHIATRIC HISTORY: He reports several people on the mother's side of his family have depression and anxiety, no completed suicides in the family FAMILY CHEMICAL DEPENDENCY HISTORY: He reports all of his mother's side of the family have chemical dependency issues SOCIAL HISTORY: The patient is 32 years old he states he's been for 3 years. He states that his marriage is good but then also states they have trust issues with each other. He is now from his and is homeless. He has not seen his in several months and she is residing with her parents. He has no children. 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 Currently he is unemployed. He was expelled from school in 11th grade completed his GED and took some college classes. No history of experience. He is originally from [place] but mainly was raised in the [place] area since the age of 12. He has 1 half-brother and 2 half-sisters. Both parents are . He has technically been homeless and has been staying with friends in the [place] area. He states he came to this mental health unit as opposed to [place] because it seems safer. Musculoskeletal Examination - Abnormal/Involuntary Movements: [tremors Strength: [greater than antigravity (greater than/equal to 3/5) in all extrem ities, weakness:] Muscle Tone: [no impairment Gait: [limping, wide-based] Station: [unsteady] Mental Status Examination - General Appearance: [disheveled, bizarre, appears older than stated age Speech/Language: [ slow, slurred, rambled, mumbling, hesitant, halting, Attitude/Behavior: [ guarded, irritable, withdrawn, indifferent] Mood: [depressed, anxious, elated, irritable, angry, fearful, hopelessness] Affect: [flat, incongruent, labile, blunted constricted] Orientation: [time, person, place situation] Thought Content: [ delusions, obsessions, phobias, other] Risk Factors: [He is not suicidal (ideations, plan), and/or Homicidal (ideations, plan), other] Perception: [ hallucinations (auditory, visual Thought Processes: [concrete, circumstantial, tangential, other] Concentration/Attention Span: [impaired] [Per observation and interview with the patient] Recent Memory: [impaired] [0 out of 3 in 3 minutes] Remote Memory: [ impaired] [past events, as related history] Intelligence: [below average ] [based on history, based on vocabulary, syntax, grammar, and content] Judgement: [poor] [per patient's behavior/history of present illness] Insight: [ poor] [understanding severity of illness/history of present illness] Admitting Diagnosis: [Bipolar affective disorderacute psychosis: History of marijuana and use disorder and opiate use disorder.] Patient Strengths - Able to vocalize needs: [x] Motivation, determination, readiness for change: [x] Patient Limitations: [medication, non-compliance, pathological/unsupported environment, no interests, intellectual impairment, lack of social supports] Initial Plan of Care: [He has formal voluntary admitted to the psychiatric unit for depression and psychosis with a strong history of substance use. He will be placed on 15 minute checks for safety throughout his hospitalization. He will be evaluated by medicine, psychiatry, nursing staff, social work and recreational therapy. He will be placed in [facility] therapeutic environment which is expected that he goes to groups and interacts with his peers and staff. I will start him on Invega and Depakote and discontinue his BuSpar and Seroquel since this is not appearing to be of little value. Invega 3 mg by mouth daily at bedtime, Depakote 250 mg by mouth twice a day. Also put him on Mobic 7.5 mg twice a day for pain and arthritic in origin.] Estimated Length of Stay: [] Initial Discharge Plan: [home, [facility], referred to therapist Prognosis: [guarded] Justification for Inpatient Hospitalization - [Hallucinations, delusions, agitation, anxiety, depression resulting in significant loss of functioning.] [Dangerous to self, others, or property with need for controlled environment.] [Emotional or behavioral conditions and complications requiring 24 hour medical and nursing care.] [Need for special drug therapy, or other therapeutic program requiring continuous hospitalization.] [Failure of social or occupational functioning.] [Inability to meet basic life and health needs.]
[2019-02-14 18:26] LABS: Hemoglobin A1C 5.1 % (4.0-6.0)
[2019-02-14] MEDS: DIVALPROEX ER 250 MG TAB.ER.24H PO SCH (20:33)
[2019-02-14] MEDS: PALIPERIDONE 3 MG TAB.ER.24 PO SCH (20:33)
[2019-02-15] MEDS: LORazepam 1 MG TAB PO PRN ×3 (08:17→20:40)
[2019-02-15] MEDS: NICOTINE 14MG/24HR PATCH TRANSDERM SCH (08:20)
--- NOTE | 2019-02-15 11:50 | P.PN ---
Subjective Progress Note Date: 02/15/19 Principal diagnosis: Bipolar affective disorderacute psychosis: History of marijuana and use disorder and opiate use disorder 02/15/2019: Chart reviewed and discussed in team this morning discussed with nursing staff. Patient interviewed in his room and he barely able to answer questions is still withdrawing from street medications. Objective - Vital Signs Vital signs: Vital Signs Temp 97.8 F 02/15/19 06:13 Pulse 78 02/15/19 06:13 Resp 14 02/15/19 06:13 BP 120/74 02/15/19 06:13 Pulse Ox 100 02/14/19 21:04 - Labs CBC & Chem 7: 02/14/19 08:50 02/14/19 08:50 Assessment and Plan Assessment: This is a 33-year-old male presents emergency Department with police for psychiatric evaluation. Patient reported called police because he stated he was suicidal. Patient has been attempting to run into traffic and also has cut himself superficially multiple times with his night. Patient states that he is life is over. Patient states that he has to go to [facility] because he has a warrant. He does have a history of drug abuse and does take alcohol regularly. Patient denies any chest pain, shortness breath, headache, dizziness, nausea vomiting diarrhea constipation. - Related Data Allergies Allergy/AdvReac Type Severity Reaction Status Date / Time No Known Allergies Allergy Verified 02/13/19 18:05 Past Medical History Retirement Hold Past Medical History: GERD/Reflux, Hypertension Additional Past Medical History / Comment(s): back pain , hep c, DDD, carpel tunnel History of Any Multi-Drug Resistant Organisms: None Reported Past Surgical History: No Surgical Hx Reported Past Psychological History: Anxiety, Depression Smoking Status: Current every day smoker Past Alcohol Use History: Occasional Past Drug Use History: Heroin, Marijuana, Prescription Drug Abuse Mental Status Examination - General Appearance: [disheveled, bizarre, appears older than stated age Speech/Language: [ slow, slurred, rambled, mumbling, hesitant, halting, Attitude/Behavior: [ guarded, irritable, withdrawn, indifferent] Mood: [depressed, anxious, elated, irritable, angry, fearful, hopelessness] Affect: [flat, incongruent, labile, blunted constricted] Orientation: [time, person, place situation] Thought Content: [ delusions, obsessions, phobias, other] Risk Factors: [He is not suicidal (ideations, plan), and/or Homicidal (ideations, plan), other] Perception: [ hallucinations (auditory, visual Thought Processes: [concrete, circumstantial, tangential, other] Concentration/Attention Span: [impaired] [Per observation and interview with the patient] Recent Memory: [impaired] [0 out of 3 in 3 minutes] Remote Memory: [ impaired] [past events, as related history] Intelligence: [below average ] [based on history, based on vocabulary, syntax, grammar, and content] Judgement: [poor] [per patient's behavior/history of present illness] Insight: [ poor] [understanding severity of illness/history of present illness] Admitting Diagnosis: [Bipolar affective disorderacute psychosis: History of marijuana and use disorder and opiate use disorder.] Patient Limitations: [medication, non-compliance, pathological/unsupported environment, no interests, intellectual impairment, lack of social supports] Initial Plan of Care: [He has formal voluntary admitted to the psychiatric unit for depression and psychosis with a strong history of substance use. He will be placed on 15 minute checks for safety throughout his hospitalization. He will be evaluated by medicine, psychiatry, nursing staff, social work and recreational therapy. He will be placed in [facility] therapeutic environment which is expected that he goes to groups and interacts with his peers and staff. I will start him on Invega and Depakote and discontinue his BuSpar and Seroquel since this is not appearing to be of little value. Invega 3 mg by mouth daily at bedtime, Depakote 250 mg by mouth twice a day. Also put him on Mobic 7.5 mg twice a day for pain and arthritic in origin.] Time with Patient: Less than 30
[2019-02-15] MEDS: ZIPRASIDONE 20 MG VIAL IM PRN (14:01)
[2019-02-15] MEDS: DIVALPROEX ER 250 MG TAB.ER.24H PO SCH (19:59)
[2019-02-15] MEDS: PALIPERIDONE 3 MG TAB.ER.24 PO SCH (19:59)
[2019-02-15] MEDS ORDERED: LOPERAMIDE 2 MG CAP PO PRN (20:08)
[2019-02-15] MEDS ORDERED: DICYCLOMINE 10 MG CAP PO PRN (20:08)
[2019-02-15] MEDS ORDERED: PROMETHAZINE 25 MG TAB PO PRN ×2 (20:08→20:22)
[2019-02-15] MEDS: cloNIDine HCL 0.2 MG TAB PO SCH (20:39)
[2019-02-16] MEDS: NICOTINE 14MG/24HR PATCH TRANSDERM SCH ×2 (09:53→10:13)
[2019-02-16] MEDS: cloNIDine HCL 0.2 MG TAB PO SCH ×2 (09:53→10:13)
[2019-02-16] MEDS: LORazepam 1 MG TAB PO PRN ×3 (10:14→17:09)
[2019-02-16] MEDS: ZIPRASIDONE 20 MG VIAL IM PRN (15:29)
[2019-02-16] MEDS: ACETAMINOPHEN TAB 325 MG TAB PO PRN (17:40)
--- NOTE | 2019-02-16 19:54 | P.PN ---
Subjective Progress Note Date: 02/16/19 Principal diagnosis: Bipolar Disorder Opiate withdrawals Bipolar Disorder Opiate Withdrawals Found him very anxious and nervous. Going through bad withdrawals. Reports seeing shadows and lines. Medication complaint and tolerating them well. Working on her coping skills. Did not sleep better last night MSE :AAOx 4. Poo eye contact. Mood anxious and jittery. Has no suicidal ideation. Has visual hallucinations. Insight and judgment improving Will continue to adjust medications accordingly Objective - Vital Signs Vital signs: Vital Signs Temp 97.6 F 02/16/19 06:05 Pulse 130 H 02/16/19 10:15 Resp 15 02/16/19 06:05 BP 146/70 02/16/19 10:15 Pulse Ox 100 02/14/19 21:04 - Labs CBC & Chem 7: 02/14/19 08:50 02/14/19 08:50
[2019-02-16] MEDS: DIVALPROEX ER 250 MG TAB.ER.24H PO SCH (21:54)
[2019-02-16] MEDS: PALIPERIDONE 3 MG TAB.ER.24 PO SCH (21:54)
[2019-02-17] MEDS: LORazepam 1 MG TAB PO PRN ×5 (04:38→21:22)
[2019-02-17] MEDS: ZIPRASIDONE 20 MG VIAL IM PRN ×2 (05:47→15:46)
[2019-02-17] MEDS: NICOTINE 14MG/24HR PATCH TRANSDERM SCH (09:22)
[2019-02-17] MEDS: cloNIDine HCL 0.2 MG TAB PO SCH ×2 (09:23→21:22)
[2019-02-17] MEDS: ACETAMINOPHEN TAB 325 MG TAB PO PRN ×3 (09:25→17:11)
--- NOTE | 2019-02-17 11:59 | P.PN ---
Subjective Progress Note Date: 02/17/19 Principal diagnosis: Bipolar Disorder Opiate withdrawals Bipolar Disorder Opiate Withdrawals Found him still very anxious and nervous. Going through bad withdrawals. Reports seeing shadows and lines. Medication complaint and tolerating them well. Working on her coping skills. Did not sleep better last night MSE :AAOx 4. Poo eye contact. Mood anxious and jittery. Has no suicidal ideation. Has visual hallucinations. Insight and judgment improving Will continue to adjust medications accordingly Objective - Vital Signs Vital signs: Vital Signs Temp 97.5 F L 02/17/19 04:35 Pulse 143 H 02/17/19 09:29 Resp 18 02/17/19 09:29 BP 102/61 02/17/19 09:29 Pulse Ox 100 02/14/19 21:04 Intake & Output 02/16/19 02/17/19 02/17/19 18:59 06:59 18:59 Weight 71.679 kg - Labs CBC & Chem 7: 02/14/19 08:50 02/14/19 08:50
[2019-02-17] MEDS: hydrOXYzine PAMOATE 25 MG CAP PO PRN (16:31)
[2019-02-17] MEDS: DIVALPROEX ER 250 MG TAB.ER.24H PO SCH (21:22)
[2019-02-17] MEDS: PALIPERIDONE 3 MG TAB.ER.24 PO SCH (21:22)
[2019-02-18] MEDS: LORazepam 1 MG TAB PO PRN ×2 (06:33→12:40)
[2019-02-18] MEDS: ZIPRASIDONE 20 MG VIAL IM PRN (07:11)
[2019-02-18] MEDS: cloNIDine HCL 0.2 MG TAB PO SCH ×2 (08:07→20:12)
[2019-02-18] MEDS: NICOTINE 14MG/24HR PATCH TRANSDERM SCH (08:07)
[2019-02-18] MEDS: hydrOXYzine PAMOATE 25 MG CAP PO PRN ×2 (08:08→14:51)
[2019-02-18] MEDS: ACETAMINOPHEN TAB 325 MG TAB PO PRN (12:40)
--- NOTE | 2019-02-18 13:28 | P.PN ---
Subjective Progress Note Date: 02/18/19 Principal diagnosis: Bipolar affective disorderacute psychosis: History of marijuana and use disorder and opiate use disorder 02/15/2019: Chart reviewed and discussed in team this morning discussed with nursing staff. Patient interviewed in his room and he barely able to answer questions is still withdrawing from street medications.next 02/18/2019: Chart reviewed, discussed with nursing staff this morning, discussed in team meeting prognosis and discharge plans. Patient interviewed in his room since he is tired and fatigued in part a shot of Geodon this morning because agitated feelings. He likes to use many numerous medications FOR his mood. He appears still to be withdrawing from street medications. Objective - Vital Signs Vital signs: Vital Signs Temp 97.9 F 02/18/19 06:20 Pulse 75 02/18/19 06:20 Resp 16 02/18/19 06:20 BP 105/61 02/18/19 06:20 Pulse Ox 100 02/14/19 21:04 Intake & Output 02/17/19 02/18/19 02/18/19 18:59 06:59 18:59 Weight 71.679 kg - Labs CBC & Chem 7: 02/14/19 08:50 02/14/19 08:50 Assessment and Plan Assessment: This is a 33-year-old male presents emergency Department with police for psychiatric evaluation. Patient reported called police because he stated he was suicidal. Patient has been attempting to run into traffic and also has cut himself superficially multiple times with his night. Patient states that he is life is over. Patient states that he has to go to skilled nursing because he has a warrant. He does have a history of drug abuse and does take alcohol regularly. Patient denies any chest pain, shortness breath, headache, dizziness, nausea vomiting diarrhea constipation. - Related Data Allergies Allergy/AdvReac Type Severity Reaction Status Date / Time No Known Allergies Allergy Verified 02/13/19 18:05 Past Medical History [facility] Past Medical History: GERD/Reflux, Hypertension Additional Past Medical History / Comment(s): back pain , hep c, DDD, carpel tunnel History of Any Multi-Drug Resistant Organisms: None Reported Past Surgical History: No Surgical Hx Reported Past Psychological History: Anxiety, Depression Smoking Status: Current every day smoker Past Alcohol Use History: Occasional Past Drug Use History: Heroin, Marijuana, Prescription Drug Abuse Mental Status Examination - General Appearance: [disheveled, bizarre, appears older than stated age Speech/Language: [ slow, slurred, rambled, mumbling, hesitant, halting, Attitude/Behavior: [ guarded, irritable, withdrawn, indifferent] Mood: [depressed, anxious, elated, irritable, angry, fearful, hopelessness] Affect: [flat, incongruent, labile, blunted constricted] Orientation: [time, person, place situation] Thought Content: [ delusions, obsessions, phobias, other] Risk Factors: [He is not suicidal (ideations, plan), and/or Homicidal (ideations, plan), other] Perception: [ hallucinations (auditory, visual Thought Processes: [concrete, circumstantial, tangential, other] Concentration/Attention Span: [impaired] [Per observation and interview with the patient] Recent Memory: [impaired] [0 out of 3 in 3 minutes] Remote Memory: [ impaired] [past events, as related history] Intelligence: [below average ] [based on history, based on vocabulary, syntax, grammar, and content] Judgement: [poor] [per patient's behavior/history of present illness] Insight: [ poor] [understanding severity of illness/history of present illness] Admitting Diagnosis: [Bipolar affective disorderacute psychosis: History of marijuana and use disorder and opiate use disorder.] Patient Limitations: [medication, non-compliance, pathological/unsupported environment, no interests, intellectual impairment, lack of social supports] Initial Plan of Care: [He has formal voluntary admitted to the psychiatric unit for depression and psychosis with a strong history of substance use. He will be placed on 15 minute checks for safety throughout his hospitalization. He will be evaluated by medicine, psychiatry, nursing staff, social work and recreatio nal therapy. He will be placed in [facility] milieu therapeutic environment which is expected that he goes to groups and interacts with his peers and staff. I will start him on Invega and Depakote and discontinue his BuSpar and Seroquel since this is not appearing to be of little value. Invega 3 mg by mouth daily at bedtime, Depakote 250 mg by mouth twice a day. Also put him on Mobic 7.5 mg twice a day for pain and arthritic in origin.] (1) Depression Current Visit: Yes Status: Acute Code(s): F32.9 - MAJOR DEPRESSIVE DISORDER, SINGLE EPISODE, UNSPECIFIED SNOMED Code(s): 94513377 (2) Polysubstance abuse Current Visit: Yes Status: Acute Code(s): F19.10 - OTHER PSYCHOACTIVE SUBSTANCE ABUSE, UNCOMPLICATED SNOMED Code(s): 490066627 Plan: decrease use of Ativan and will add Depakote 500 mg by mouth daily at bedtime, Invega 9 mg by mouth daily at bedtime with an ultimate change to an injectable Invega tomorrow to 256 mg intramuscular. Add zoloft 50 mg po qhs. Time with Patient: Less than 30
[2019-02-18] MEDS: HALOPERIDOL LACTATE 5 MG/ML 1 ML VIAL IM PRN ×3 (13:51→20:57)
[2019-02-18] MEDS ORDERED: PALIPERIDONE 3 MG TAB.ER.24 PO SCH (21:00)
[2019-02-18] MEDS ORDERED: DIVALPROEX ER 500 MG TAB.ER.24H PO SCH (21:00)
[2019-02-18] MEDS ORDERED: SERTRALINE 50 MG TAB PO SCH (21:00)
[2019-02-19 06:33] VITALS: BP 113/61; PULSE 65; RESP 15; TEMP 98
[2019-02-19] MEDS: NICOTINE 14MG/24HR PATCH TRANSDERM SCH (08:26)
[2019-02-19] MEDS: cloNIDine HCL 0.2 MG TAB PO SCH (08:26)
[2019-02-19] MEDS: hydrOXYzine PAMOATE 25 MG CAP PO PRN ×2 (09:12→15:43)
--- NOTE | 2019-02-19 11:44 | P.DS ---
Providers Date of admission: 02/13/19 20:36 Expected date of discharge: 02/19/19 Attending physician: Mike Castellanos DO Consults: 02/13/19 20:55 Consult Physician Routine Consulting Provider: Doron James Consult Reason/Comments: H & P and medical care Do you want consulting provider notified?: Yes Primary care physician: Stated None - Discharge Diagnosis(es) (1) Depression Allergies Allergy/AdvReac Type Severity Reaction Status Date / Time No Known Allergies Allergy Verified 02/14/19 07:34 Vital Signs Temp 98.0 F 02/14/19 00:20 Pulse 81 02/14/19 05:30 Resp 16 02/14/19 00:20 BP 136/81 02/14/19 05:30 Pulse Ox 98 02/13/19 21:00 Intake & Output 02/13/19 02/14/19 02/14/19 18:59 06:59 18:59 Weight 74.843 kg 72.8 kg Laboratory Last Values WBC 9.8 k/uL (3.8-10.6) 02/14/19 08:50 RBC 4.74 m/uL (4.30-5.90) 02/14/19 08:50 Hgb 13.4 gm/dL (13.0-17.5) 02/14/19 08:50 Hct 42.0 % (39.0-53.0) 02/14/19 08:50 MCV 88.5 fL (80.0-100.0) 02/14/19 08:50 MCH 28.3 pg (25.0-35.0) 02/14/19 08:50 MCHC 31.9 g/dL (31.0-37.0) 02/14/19 08:50 RDW 13.9 % (11.5-15.5) 02/14/19 08:50 Plt Count 305 k/uL (150-450) 02/14/19 08:50 Neutrophils % 67 % 02/14/19 08:50 Lymphocytes % 24 % 02/14/19 08:50 Monocytes % 4 % 02/14/19 08:50 Eosinophils % 3 % 02/14/19 08:50 Basophils % 1 % 02/14/19 08:50 Neutrophils # 6.5 k/uL (1.3-7.7) 02/14/19 08:50 Lymphocytes # 2.3 k/uL (1.0-4.8) 02/14/19 08:50 Monocytes # 0.4 k/uL (0-1.0) 02/14/19 08:50 Eosinophils # 0.3 k/uL (0-0.7) 02/14/19 08:50 Basophils # 0.1 k/uL (0-0.2) 02/14/19 08:50 Sodium 140 mmol/L (137-145) 02/14/19 08:50 Potassium 4.6 mmol/L (3.5-5.1) 02/14/19 08:50 Chloride 106 mmol/L (98-107) 02/14/19 08:50 Carbon Dioxide 28 mmol/L (22-30) 02/14/19 08:50 Anion Gap 6 mmol/L 02/14/19 08:50 BUN 12 mg/dL (9-20) 02/14/19 08:50 Creatinine 0.70 mg/dL (0.66-1.25) 02/14/19 08:50 Est GFR (CKD-EPI)AfAm >90 (>60 ml/min/1.73 sqM) 02/14/19 08:50 Est GFR (CKD-EPI)NonAf >90 (>60 ml/min/1.73 sqM) 02/14/19 08:50 Glucose 94 mg/dL (74-99) 02/14/19 08:50 Calcium 9.2 mg/dL (8.4-10.2) 02/14/19 08:50 Total Bilirubin 0.3 mg/dL (0.2-1.3) 02/14/19 08:50 Conjugated Bilirubin 0.0 mg/dL (0.0-0.3) 02/14/19 08:50 Unconjugated Bilirubin 0.1 mg/dL (0.0-1.1) 02/14/19 08:50 Delta Bilirubin 0.2 mg/dL (0.0-0.2) 02/14/19 08:50 AST 23 U/L (17-59) 02/14/19 08:50 ALT 34 U/L (21-72) 02/14/19 08:50 Alkaline Phosphatase 48 U/L (38-126) 02/14/19 08:50 Total Protein 6.9 g/dL (6.3-8.2) 02/14/19 08:50 Albumin 3.4 g/dL (3.5-5.0) L 02/14/19 08:50 Triglycerides 89 mg/dL (<150) 02/14/19 08:50 Cholesterol 128 mg/dL (<200) 02/14/19 08:50 LDL Cholesterol, Calc 76 mg/dL (0-99) 02/14/19 08:50 HDL Cholesterol 34 mg/dL (40-60) L 02/14/19 08:50 TSH 0.904 mIU/L (0.465-4.680) 02/14/19 08:50 Urine Opiates Screen Detected (NotDetected) H 02/13/19 18:42 Ur Oxycodone Screen Not Detected (NotDetected) 02/13/19 18:42 Urine Methadone Screen Not Detected (NotDetected) 02/13/19 18:42 Ur Propoxyphene Screen Not Detected (NotDetected) 02/13/19 18:42 Ur Barbiturates Screen Not Detected (NotDetected) 02/13/19 18:42 U Tricyclic Antidepress Not Detected (NotDetected) 02/13/19 18:42 Ur Phencyclidine Scrn Not Detected (NotDetected) 02/13/19 18:42 Ur Amphetamines Screen Detected (NotDetected) H 02/13/19 18:42 U Methamphetamines Scrn Detected (NotDetected) H 02/13/19 18:42 U Benzodiazepines Scrn Not Detected (NotDetected) 02/13/19 18:42 Urine Cocaine Screen Not Detected (NotDetected) 02/13/19 18:42 U Marijuana (THC) Screen Detected (NotDetected) H 02/13/19 18:42 Assessment and Plan Assessment: This is a 33-year-old male presents emergency Department with police for psychiatric evaluation. Patient reported called police because he stated he was suicidal. Patient has been attempting to run into traffic and also has cut himself superficially multiple times with his night. Patient states that he is life is over. Patient states that he has to go to fdc because he has a warrant. He does have a history of drug abuse and does take alcohol regularly. Patient denies any chest pain, shortness breath, headache, dizziness, nausea vomiting diarrhea constipation. - Related Data Allergies Allergy/AdvReac Type Severity Reaction Status Date / Time No Known Allergies Allergy Verified 02/13/19 18:05 Past Medical History [facility] Past Medical History: GERD/Reflux, Hypertension Additional Past Medical History / Comment(s): back pain , hep c, DDD, carpel tunnel History of Any Multi-Drug Resistant Organisms: None Reported Past Surgical History: No Surgical Hx Reported Past Psychological History: Anxiety, Depression Smoking Status: Current every day smoker Past Alcohol Use History: Occasional Past Drug Use History: Heroin, Marijuana, Prescription Drug Abuse PAST PSYCHIATRIC HISTORY: This is the patient's third inpatient psychiatric admission others were at [facility] and in [place]. He endorses a total of 3 suicide attempts to involving overdoses and one involving cutting his wrist. He has worked with [facility] in the past but his case was closed due to noncompliance with appointments. He has been treated with Wellbutrin and Lexapro Xanax Thorazine clonidine and trazodone in the past. He states Lexapro was the most helpful in reducing depressive symptoms. PMH: Hepatitis C, he reports his blood pressure can be elevated at times. He presumes he contracted the hepatitis C via intravenous drug use ALLERGIES: NO KNOWN DRUG ALLERGIES MEDICATIONS: None CHEMICAL DEPENDENCY HISTORY: The patient reports using alcohol 3 times a week having 2 beers at a time, he uses marijuana 3 times a week, he has been using Suboxone and Vicodin to keep from relapsing on heroin. He states he has been clean from heroin for approximately 3 months. He reports no regular use of cocaine. He has been in inpatient chemical dependency treatment once earlier this year at [place]. He reports having no interest in returning. FAMILY PSYCHIATRIC HISTORY: He reports several people on the mother's side of his family have depression and anxiety, no completed suicides in the family FAMILY CHEMICAL DEPENDENCY HISTORY: He reports all of his mother's side of the family have chemical dependency issues SOCIAL HISTORY: The patient is 32 years old he states he's been for 3 years. He states that his marriage is good but then also states they have trust issues with each other. He is now from his and is homeless. He has not seen his in several months and she is residing with her parents. He has no children. 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 Currently he is unemployed. He was expelled from school in 11th grade completed his GED and took some college classes. No history of experience. He is originally from [place] but mainly was raised in the [facility] since the age of 12. He has 1 half-brother and 2 half-sisters. Both parents are . He has technically been homeless and has been staying with friends in the [place] area. He states he came to this mental health unit as opposed to [place] because it seems safer. Mental Status Examination - General Appearance: [disheveled, bizarre, appears older than stated age Speech/Language: [ slow, slurred, rambled, mumbling, hesitant, halting, Attitude/Behavior: [ guarded, irritable, withdrawn, indifferent] Mood: [depressed, anxious, elated, irritable, angry, fearful, hopelessness] Affect: [flat, incongruent, labile, blunted constricted] Orientation: [time, person, place situation] Thought Content: [ delusions, obsessions, phobias, other] Risk Factors: [He is not suicidal (ideations, plan), and/or Homicidal (ideations, plan), other] Perception: [ hallucinations (auditory, visual Thought Processes: [concrete, circumstantial, tangential, other] Concentration/Attention Span: [impaired] [Per observation and interview with the patient] Recent Memory: [impaired] [0 out of 3 in 3 minutes] Remote Memory: [ impaired] [past events, as related history] Intelligence: [below average ] [based on history, based on vocabulary, syntax, grammar, and content] Judgement: [poor] [per patient's behavior/history of present illness] Insight: [ poor] [understanding severity of illness/history of present illness] Admitting Diagnosis: [Bipolar affective disorderacute psychosis: History of marijuana and use disorder and opiate use disorder.] Current Visit: Yes Status: Acute Priority: Low (2) Polysubstance abuse Current Visit: Yes Status: Acute Priority: Low Hospital Course: Plan of Care: [He has formal voluntary admitted to the psychiatric unit for depression and psychosis with a strong history of substance use. He will be placed on 15 minute checks for safety throughout his hospitalization. He will be evaluated by medicine, psychiatry, nursing staff, social work and recreational therapy. He will be placed in [facility]ig[facility] milieu therapeutic environment which is expected that he goes to groups and interacts with his peers and staff. I will start him on Invega and Depakote and discontinue his BuSpar and Seroquel since this is not appearing to be of little value. Invega 3 mg by mouth daily at bedtime, Depakote 250 mg by mouth twice a day. Also put him on Mobic 7.5 mg twice a day for pain and arthritic in origin.] He was given on day of discharge which should be 02/19/2019 and injection of Invega 234 mg IM and should be repeated March 19. From here he goes to serve his fdc time. Discharge Medication List Dicyclomine [Bentyl] 10 mg PO Q6HR PRN 30 Days #30 cap 02/19/19 [Rx] Divalproex ER [Depakote ER] 500 mg PO 2100 30 Days #30 tab.er.24h 02/19/19 [Rx] Sertraline [Zoloft] 50 mg PO HS 30 Days #30 tab 02/19/19 [Rx] cloNIDine HCL [Catapres] 0.2 mg PO BID 30 Days #60 tab 02/19/19 [Rx] hydrOXYzine PAMOATE [Vistaril] 50 mg PO Q8HR PRN 30 Days #90 cap 02/19/19 [Rx] Mental status examination at time of discharge: The patient presents alert, pleasant, and cooperative. There calmly seated without any agitated behavior. [He] reports that [his] mood is good. Affect is congruent and euthymic. [He] deny having any suicidal or homicidal ideation intent or plan. [He] denies any auditory or visual hallucinations. There is no evidence of any delusional thought content. [His] thought process is linear and goal-directed. [His] speech is fluent and nonpressured. [His] memory and concentration is grossly intact for the purposes of this session. Patient Condition at Discharge: Stable Plan - Discharge Summary Discharge Rx Participant: No New Discharge Prescriptions: New Dicyclomine [Bentyl] 10 mg PO Q6HR PRN 30 Days #30 cap PRN Reason: Gi Upset cloNIDine HCL [Catapres] 0.2 mg PO BID 30 Days #60 tab Divalproex ER [Depakote ER] 500 mg PO 2100 30 Days #30 tab.er.24h hydrOXYzine PAMOATE [Vistaril] 50 mg PO Q8HR PRN 30 Days #90 cap PRN Reason: breakthrough anxiety Sertraline [Zoloft] 50 mg PO HS 30 Days #30 tab Discontinued Escitalopram [Lexapro] 10 mg PO DAILY cloNIDine HCL [Catapres] 0.05 mg PO DAILY OLANZapine [ZyPREXA] 10 mg PO HS Discharge Medication List Dicyclomine [Bentyl] 10 mg PO Q6HR PRN 30 Days #30 cap 02/19/19 [Rx] Divalproex ER [Depakote ER] 500 mg PO 2100 30 Days #30 tab.er.24h 02/19/19 [Rx] Sertraline [Zoloft] 50 mg PO HS 30 Days #30 tab 02/19/19 [Rx] cloNIDine HCL [Catapres] 0.2 mg PO BID 30 Days #60 tab 02/19/19 [Rx] hydrOXYzine PAMOATE [Vistaril] 50 mg PO Q8HR PRN 30 Days #90 cap 02/19/19 [Rx] Follow up Appointment(s)/Referral(s): [facility] [Outside] - 1-2 Days ([facility] fdc services. Date/time tbd once pt arrives at the fdc. ) None,Stated [Primary Care Provider] - 1-2 days Discharge Disposition: OTHER INSTITUTION NOT DEFINED
[2019-02-19] MEDS ORDERED: PALIPERIDONE IM 234 MG/1.5 ML SYG IM STA (12:06)
[2019-02-19] MEDS ORDERED: hydrOXYzine PAMOATE 25 MG CAP PO STA (12:11)
[2019-02-19] MEDS: ACETAMINOPHEN TAB 325 MG TAB PO PRN (12:24)
== END 2019-02-19 15:55 | DRG 885 ==
LOC: EC 17:58 → 3MHU 20:36
PROVIDERS: ADMIT Psychiatry & Neurology Psychiatry; ATTEND Psychiatry & Neurology Psychiatry
DX: F31.9 Bipolar disorder, unspecified (principal); F23 Brief psychotic disorder; F41.9 Anxiety disorder, unspecified; I10 Essential (primary) hypertension; K21.9 Gastro-esophageal reflux disease without esophagitis; Z59.0 Homelessness; Z79.899 Other long term (current) drug therapy; Z91.19 Patient's noncompliance with other medical treatment and regimen; F17.210 Nicotine dependence, cigarettes, uncomplicated; S11.91XA Laceration without foreign body of unspecified part of neck, initial encounter; S51.812A Laceration without foreign body of left forearm, initial encounter; X78.1XXA Intentional self-harm by knife, initial encounter; Z56.0 Unemployment, unspecified; Z65.3 Problems related to other legal circumstances; F15.10 Other stimulant abuse, uncomplicated; Z71.51 Drug abuse counseling and surveillance of drug abuser; Z63.5 Disruption of family by separation and divorce; Z86.19 Personal history of other infectious and parasitic diseases; F11.21 Opioid dependence, in remission; Z81.8 Family history of other mental and behavioral disorders; Z81.3 Family history of other psychoactive substance abuse and dependence; Z91.5 Personal history of self-harm
CPT/HCPCS: 80053; 80061; 80306; 82075; 82248; 83036; 84443; 85025; 90471; 90715; 99285

== ENCOUNTER 2019-03-17 11:59 | Emergency (ER) | payer OTHER ==
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
[2019-03-17 13:28] LABS: Amphetamine Screen,Urine Detected (NotDetected); Barbiturate Screen,Urine Not Detected (NotDetected); Benzodiazepines Screen,Urine Detected (NotDetected); Cocaine Screen,Urine Not Detected (NotDetected); Methadone Screen, Urine Not Detected (NotDetected); Opiate Screen,Urine Detected (NotDetected); Oxycodone Screen, Urine Not Detected (NotDetected); Phencyclidine Screen,Urine Not Detected (NotDetected); Tricyclic Antidepressant,Urine Not Detected (NotDetected); Urn Cannabinoid Scrn Detected (NotDetected)
[2019-03-17] MEDS ORDERED: DIVALPROEX ER 500 MG TAB.ER.24H PO STA (13:51)
[2019-03-17] MEDS ORDERED: ALPRAZolam 0.5 MG TAB PO STA (13:53)
[2019-03-17 14:51] VITALS: BP 165/87; PULSE 81; RESP 16; TEMP 98.2
== END 2019-03-17 14:30 | disposition home or self-care (01) ==
LOC: EC 11:59
DX: F32.3 Major depressive disorder, single episode, severe with psychotic features (principal); F19.10 Other psychoactive substance abuse, uncomplicated; S05.11XA Contusion of eyeball and orbital tissues, right eye, initial encounter; X83.8XXA Intentional self-harm by other specified means, initial encounter; S40.922A Unspecified superficial injury of left upper arm, initial encounter; S00.81XA Abrasion of other part of head, initial encounter; R45.851 Suicidal ideations; F41.9 Anxiety disorder, unspecified; F17.210 Nicotine dependence, cigarettes, uncomplicated; Z79.899 Other long term (current) drug therapy
CPT/HCPCS: 36415; 80164; 80306; 99285

== ENCOUNTER 2019-03-19 01:19 | Emergency (ER) | payer OTHER ==
--- NOTE | 2019-03-19 02:15 | ED ---
Psych HPI - General Chief Complaint: Psychiatric Symptoms Stated Complaint: Suicidal Time Seen by Provider: 03/19/19 01:26 Source: patient, police Mode of arrival: ambulatory - History of Present Illness Initial Comments: This patient is a 33-year-old man with history of mood disorder, who presents to be evaluated for depressed mood and suicidal ideation area the patient states that his symptoms were made worse tonight after being arrested for attempted to purchase heroin. Patient states that discussed in to have thoughts of overdosing. MD Complaint: suicidal ideation -: hour(s) Associated Psychiatric Symptoms: depression, suicidal ideation Quality: getting worse Worsens With: none Context: recent drug abuse, significant life stressor Associated Symptoms: denies other symptoms - Related Data Home Medications Medication Instructions Recorded Confirmed Divalproex ER [Depakote ER] 500 mg PO HS 03/17/19 03/17/19 Paliperidone IM [Invega Sustenna] 234 mg IM DIRECTED 03/17/19 03/17/19 traZODone HCL 100 mg PO HS 03/17/19 03/17/19 Previous Rx's Medication Instructions Recorded Sertraline [Zoloft] 50 mg PO HS 30 Days #30 tab 02/19/19 cloNIDine HCL [Catapres] 0.2 mg PO BID 30 Days #60 tab 02/19/19 hydrOXYzine PAMOATE [Vistaril] 50 mg PO Q8HR PRN 30 Days #90 cap 02/19/19 Allergies Allergy/AdvReac Type Severity Reaction Status Date / Time No Known Allergies Allergy Verified 03/19/19 01:30 Review of Systems ROS Statement: Those systems with pertinent positive or pertinent negative responses have been documented in the HPI. ROS Other: All systems not noted in ROS Statement are negative. Respiratory: Denies: cough, dyspnea Cardiovascular: Reports: palpitations. Denies: chest pain, edema, syncope Gastrointestinal: Denies: abdominal pain, nausea, vomiting Musculoskeletal: Denies: back pain Skin: Denies: rash Neurological: Denies: headache Psychiatric: Reports: depression, suicidal thoughts. Denies: auditory hallucinations, visual hallucinations, homicidal thoughts Past Medical History Past Medical History: GERD/Reflux, Hypertension Additional Past Medical History / Comment(s): back pain , hep c, DDD, carpel tunnel History of Any Multi-Drug Resistant Organisms: None Reported Past Surgical History: No Surgical Hx Reported Past Psychological History: Anxiety, Depression Smoking Status: Current every day smoker Past Alcohol Use History: Occasional Past Drug Use History: Heroin, Marijuana, Prescription Drug Abuse General Exam Limitations: no limitations General appearance: alert, in no apparent distress Head exam: Present: atraumatic, normocephalic Eye exam: Present: normal appearance. Absent: scleral icterus, conjunctival injection ENT exam: Present: mucous membranes dry Neck exam: Present: normal inspection, full ROM Respiratory exam: Present: normal lung sounds bilaterally. Absent: respiratory distress, wheezes, rales, rhonchi, stridor Cardiovascular Exam: Present: regular rate, normal rhythm, normal heart sounds. Absent: systolic murmur, diastolic murmur, rubs, gallop GI/Abdominal exam: Present: soft. Absent: distended, tenderness, guarding, rebound, rigid, mass Extremities exam: Present: normal inspection, normal capillary refill. Absent: pedal edema, calf tenderness Back exam: Present: normal inspection. Absent: CVA tenderness (R), CVA tenderness (L) Neurological exam: Present: alert Psychiatric exam: Present: depressed, suicidal ideation. Absent: agitated, anxious, flat affect, manic, homicidal ideation Skin exam: Present: warm, dry, intact, normal color. Absent: rash Course Vital Signs 03/19/19 01:25 Temperature 99.8 F H Pulse Rate 118 H Respiratory 16 Rate Blood Pressure 131/76 O2 Sat by Pulse 100 Oximetry Medical Decision Making - Medical Decision Making Patient is 33-year-old man brought by police after he stated he was having some suicidal thoughts. The patient after being here for. Time stated that he was feeling better. He was then evaluated by behavioral health and was recanting the statements he had made earlier. Patient when I went and reevaluated him was janie for safety. He states that he was very stressed earlier when the police were with him, and that he does feel better now. He does agree to return should he be feeling worse or if the suicidal ideation recurs. Disposition Clinical Impression: Adjustment reaction, Substance abuse Disposition: HOME SELF-CARE Condition: Fair Instructions (If sedation given, give patient instructions): Mood Disorders (ED) Is patient prescribed a controlled substance at d/c from ED?: No Referrals: None,Stated [Primary Care Provider] - 1-2 days
[2019-03-19 03:25] VITALS: BP 127/83; PULSE 80; RESP 18; TEMP 98.5
[2019-03-19 03:32] LABS: Amphetamine Screen,Urine Detected (NotDetected); Barbiturate Screen,Urine Not Detected (NotDetected); Benzodiazepines Screen,Urine Detected (NotDetected); Cocaine Screen,Urine Not Detected (NotDetected); Methadone Screen, Urine Not Detected (NotDetected); Opiate Screen,Urine Not Detected (NotDetected); Oxycodone Screen, Urine Not Detected (NotDetected); Phencyclidine Screen,Urine Not Detected (NotDetected); Tricyclic Antidepressant,Urine Not Detected (NotDetected); Urn Cannabinoid Scrn Detected (NotDetected)
== END 2019-03-19 03:37 | disposition home or self-care (01) ==
LOC: EC 01:19
DX: F43.20 Adjustment disorder, unspecified (principal); F19.10 Other psychoactive substance abuse, uncomplicated; F32.9 Major depressive disorder, single episode, unspecified; F41.9 Anxiety disorder, unspecified; F17.200 Nicotine dependence, unspecified, uncomplicated; Z79.899 Other long term (current) drug therapy
CPT/HCPCS: 80306; 99285

== ENCOUNTER 2019-04-03 11:13 | Inpatient (IN) | payer OTHER ==
[2019-04-03] MEDS ORDERED: SODIUM CHLORIDE 0.9% 1,000 ML IV ONE (12:03)
[2019-04-03 12:31] LABS: Appearance,Urine Clear (Clear); Basophils # (A) 0.1 k/uL (0-0.2); Basophils % (A) 1 %; Bilirubin,Urine Negative (Negative); Blood,Urine Negative (Negative); Color,Urine Yellow; Eosinophils # (A) 0.2 k/uL (0-0.7); Eosinophils % (A) 4 %; Glucose,Urine (UA) Negative (Negative); HCT 35.3 % (39.0-53.0); HGB 11.6 gm/dL (13.0-17.5); Ketones,Urine Negative (Negative); Leukocyte Esterase,Urine Negative (Negative); Lymphocytes # (A) 2.1 k/uL (1.0-4.8); Lymphocytes % (A) 36 %; MCH 27.9 pg (25.0-35.0); MCV 84.7 fL (80.0-100.0); Mean Platelet Volume 6.8; Monocytes # (A) 0.2 k/uL (0-1.0); Monocytes % (A) 4 %; Neutrophils # (A) 3.1 k/uL (1.3-7.7); Neutrophils % (A) 52 %; Nitrite,Urine Negative (Negative); PH, Urine 5.5 (5.0-8.0); Platelet Count 298 k/uL (150-450); Protein,Urine Negative (Negative); RBC 4.17 m/uL (4.30-5.90); RDW 14.9 % (11.5-15.5); Specific Gravity,Urine 1.021 (1.001-1.035); Urobilinogen,Urine <2.0 mg/dL (<2.0); WBC 5.9 k/uL (3.8-10.6)
[2019-04-03 12:40] LABS: ALT 37 U/L (21-72); AST 25 U/L (17-59); Albumin 3.7 g/dL (3.5-5.0); Alkaline Phosphatase 43 U/L (38-126); Anion Gap 8 mmol/L; Blood Urea Nitrogen 11 mg/dL (9-20); Calcium 9.4 mg/dL (8.4-10.2); Carbon Dioxide 27 mmol/L (22-30); Chloride 107 mmol/L (98-107); Glucose 108 mg/dL (74-99); Potassium 3.7 mmol/L (3.5-5.1); Sodium 142 mmol/L (137-145); Total Bilirubin 0.2 mg/dL (0.2-1.3); Total Protein 7.2 g/dL (6.3-8.2)
--- NOTE | 2019-04-03 12:52 | XR ---
EXAMINATION TYPE: XR chest 2V DATE OF EXAM: 04/03/2019 COMPARISON: Chest x-ray May 20, 2013. HISTORY: Bladder infection for pain. Chest pain per order. TECHNIQUE: Frontal and lateral views of the chest are obtained. FINDINGS: There is suspected lateral right mid lung subcentimeter nodule. This is presumed benign bas ed on patient's age under 35. There is no focal air space opacity, pleural effusion, or pneumothorax seen. The cardiac silhouette size is within normal limits. Slight underlying scoliotic curvature is redemonstrated. IMPRESSION: No acute cardiopulmonary process.
--- NOTE | 2019-04-03 13:00 | ED ---
Recheck HPI - General Chief Complaint: Recheck/Abnormal Lab/Rx Stated Complaint: "blood infection" Time Seen by Provider: 04/03/19 11:39 Source: patient Mode of arrival: ambulatory Limitations: no limitations - History of Present Illness Initial Comments: 33-year-old male presenting today for chief complaint of possible blood infection. Patient states he recently left AGAINST MEDICAL ADVICE from the [facility] last week. He states he is being treated for blood infection. Patient cannot expand more on why he was hospitalized. He is a poor historian. He is very vague with details. He is alert and oriented 3 there is no signs of altered mentation. Patient states that he has had a fever on and off he states he's never recorded temperature just feels warm and cold. He states he has decreased energy and feels tired. He says he is occasionally has a sore throat denies any chest pain or shortness of breath he denies cough. He states at times his urine appears dark. He states he is an active methamphetamine and heroin user the last use of a Suboxone which he gets from the streets was yesterday. Denies any drug use today. Patient denies any nausea vomiting or diarrhea. Patient states he does have some erythema of the left paz. HEENT states he noticed this today he states he was out in the sun yesterday but does not feel as the sunburn. He states he does not have it on his right lower paz. Patient denies any areas of abscess he denies any dental pain. Patient denies any headache dizziness or back pain. She denies dysuria urgency or frequency. Remaining review of systems negative. A request was made to obtain medical records from [facility] . - Related Data Home Medications Medication Instructions Recorded Confirmed Divalproex ER [Depakote ER] 500 mg PO HS 03/17/19 04/03/19 Paliperidone IM [Invega Sustenna] 234 mg IM DIRECTED 03/17/19 04/03/19 traZODone HCL 100 mg PO HS 03/17/19 04/03/19 Buprenorphine HCl/Naloxone HCl 1 film PO DAILY 04/03/19 04/03/19 [Suboxone 8 mg-2 mg Sl Film] Cephalexin [Keflex] 500 mg PO QID 04/03/19 04/03/19 Escitalopram [Lexapro] 10 mg PO DAILY 04/03/19 04/03/19 Previous Rx's Medication Instructions Recorded Sertraline [Zoloft] 50 mg PO HS 30 Days #30 tab 02/19/19 cloNIDine HCL [Catapres] 0.2 mg PO BID 30 Days #60 tab 02/19/19 hydrOXYzine PAMOATE [Vistaril] 50 mg PO Q8HR PRN 30 Days #90 cap 02/19/19 Allergies Allergy/AdvReac Type Severity Reaction Status Date / Time No Known Allergies Allergy Verified 04/03/19 11:49 Review of Systems ROS Statement: Those systems with pertinent positive or pertinent negative responses have been documented in the HPI. ROS Other: All systems not noted in ROS Statement are negative. Past Medical History Past Medical History: GERD/Reflux, Hypertension Additional Past Medical History / Comment(s): back pain , hep c, DDD, carpel tunnel History of Any Multi-Drug Resistant Organisms: Unobtainable MDRO Source:: unknown Past Surgical History: No Surgical Hx Reported Past Psychological History: Anxiety, Depression Smoking Status: Current every day smoker Past Alcohol Use History: Occasional Past Drug Use History: Heroin, Marijuana, Prescription Drug Abuse General Exam Limitations: no limitations Course Vital Signs 04/03/19 11:22 Temperature 98.1 F Pulse Rate 76 Respiratory 22 Rate Blood Pressure 128/84 O2 Sat by Pulse 98 Oximetry - Reevaluation(s) Reevaluation #1: I received the medical records from the [facility] which appear patient had positive gram-positive chains from blood culture they wanted to admit patient for rule out endocarditis. Patient does not show overt signs of endocarditis at this time. Laboratory studies within normal limits. Blood cultures pending. However patient does complain of general malaise fatigue as well as on and off fevers. Patient be admitted for echocardiogram and ID consul tation. I did see from patient's previous I and D no from [facility] that Dr. Kolb preferred vancomycin and unasyn. Pt will be admitted with these antibiotics to medicine and ID consult. 04/03/19 13:39 Medical Decision Making - Medical Decision Making 33-year-old male positive blood cultures for gram-positive cocci in chains at [facility] where he was being treated with vancomycin and Unasyn pending final blood cultures. Patient has not been on antibiotics upon discharge from the [facility]. He is concerned that the infection is spreading. He was being treated at that time in the ICU with I&D on consult. His laboratory studies today in comparison with those obtained from the [facility] records. Patient has normal white cell count no lactic acidosis. Blood cultures pending. Pt does admit to intermittent sweats status post discharge feeling as though he has a fever. Patient admits to general malaise and fatigue. Physical examination there is no abnormalities no murmur. There is no evidence of vascular phenomenon upon inspection of the hands and feet. There is a small area of erythema of the left paz is difficult to decipher if this is a superifical burn from sun exposure or cellulitis. Patient did not receive echocardiogram prior to leaving the [facility] AGAINST MEDICAL ADVICE this with the next step to rule out endocarditis as casue of positive blood cul tures. At this time I feel patient should be admitted for echo and further I&D consultation. Pt remains hemodynamically stable and afebrile emergency department. I discussed the case with him provider Dr. Mohan who spoke with the admitting provider Dr. Sanchez. Who accepted admission. - Lab Data Result diagrams: 04/03/19 12:15 04/03/19 12:15 Lab Results 04/03/19 04/03/19 04/03/19 Range/Units 12:15 12:15 12:15 WBC 5.9 (3.8-10.6) k/uL RBC 4.17 L (4.30-5.90) m/uL Hgb 11.6 L (13.0-17.5) gm/dL Hct 35.3 L (39.0-53.0) % MCV 84.7 (80.0-100.0) fL MCH 27.9 (25.0-35.0) pg MCHC 33.0 (31.0-37.0) g/dL RDW 14.9 (11.5-15.5) % Plt Count 298 (150-450) k/uL Neutrophils % 52 % Lymphocytes % 36 % Monocytes % 4 % Eosinophils % 4 % Basophils % 1 % Neutrophils # 3.1 (1.3-7.7) k/uL Lymphocytes # 2.1 (1.0-4.8) k/uL Monocytes # 0.2 (0-1.0) k/uL Eosinophils # 0.2 (0-0.7) k/uL Basophils # 0.1 (0-0.2) k/uL Sodium 142 (137-145) mmol/L Potassium 3.7 (3.5-5.1) mmol/L Chloride 107 (98-107) mmol/L Carbon Dioxide 27 (22-30) mmol/L Anion Gap 8 mmol/L BUN 11 (9-20) mg/dL Creatinine 0.64 L (0.66-1.25) mg/dL Est GFR (CKD-EPI)AfAm >90 (>60 ml/min/1.73 sqM) Est GFR (CKD-EPI)NonAf >90 (>60 ml/min/1.73 sqM) Glucose 108 H (74-99) mg/dL Plasma Lactic Acid Sohail 1.7 (0.7-2.0) mmol/L Calcium 9.4 (8.4-10.2) mg/dL Total Bilirubin 0.2 (0.2-1.3) mg/dL AST 25 (17-59) U/L ALT 37 (21-72) U/L Alkaline Phosphatase 43 (38-126) U/L CK-MB (CK-2) (0.0-2.4) ng/mL Troponin I (0.000-0.034) ng/mL Total Protein 7.2 (6.3-8.2) g/dL Albumin 3.7 (3.5-5.0) g/dL Urine Color Urine Appearance (Clear) Urine pH (5.0-8.0) Ur Specific [place] (1.001-1.035) Urine Protein (Negative) Urine Glucose (UA) (Negative) Urine Ketones (Negative) Urine Blood (Negative) Urine Nitrite (Negative) Urine Bilirubin (Negative) Urine Urobilinogen (<2.0) mg/dL Ur Leukocyte Esterase (Negative) Influenza Type A RNA (Not Detectd) Influenza Type B (PCR) (Not Detectd) 04/03/19 04/03/19 04/03/19 Range/Units 12:15 12:15 13:05 WBC (3.8-10.6) k/uL RBC (4.30-5.90) m/uL Hgb (13.0-17.5) gm/dL Hct (39.0-53.0) % MCV (80.0-100.0) fL MCH (25.0-35.0) pg MCHC (31.0-37.0) g/dL RDW (11.5-15.5) % Plt Count (150-450) k/uL Neutrophils % % Lymphocytes % % Monocytes % % Eosinophils % % Basophils % % Neutrophils # (1.3-7.7) k/uL Lymphocytes # (1.0-4.8) k/uL Monocytes # (0-1.0) k/uL Eosinophils # (0-0.7) k/uL Basophils # (0-0.2) k/uL Sodium (137-145) mmol/L Potassium (3.5-5.1) mmol/L Chloride (98-107) mmol/L Carbon Dioxide (22-30) mmol/L Anion Gap mmol/L BUN (9-20) mg/dL Creatinine (0.66-1.25) mg/dL Est GFR (CKD-EPI)AfAm (>60 ml/min/1.73 sqM) Est GFR (CKD-EPI)NonAf (>60 ml/min/1.73 sqM) Glucose (74-99) mg/dL Plasma Lactic Acid [place] (0.7-2.0) mmol/L Calcium (8.4-10.2) mg/dL Total Bilirubin (0.2-1.3) mg/dL AST (17-59) U/L ALT (21-72) U/L Alkaline Phosphatase (38-126) U/L CK-MB (CK-2) 1.7 (0.0-2.4) ng/mL Troponin I <0.012 (0.000-0.034) ng/mL Total Protein (6.3-8.2) g/dL Albumin (3.5-5.0) g/dL Urine Color Yellow Urine Appearance Clear (Clear) Urine pH 5.5 (5.0-8.0) Ur Specific [place] 1.021 (1.001-1.035) Urine Protein Negative (Negative) Urine Glucose (UA) Negative (Negative) Urine Ketones Negative (Negative) Urine Blood Negative (Negative) Urine Nitrite Negative (Negative) Urine Bilirubin Negative (Negative) Urine Urobilinogen <2.0 (<2.0) mg/dL Ur Leukocyte Esterase Negative (Negative) Influenza Type A RNA Not Detected (Not Detectd) Influenza Type B (PCR) Not Detected (Not Detectd) Disposition Clinical Impression: Blood bacterial culture positive, Malaise, Hx of fever Disposition: HOME SELF-CARE Condition: Good Is patient prescribed a controlled substance at d/c from ED?: No Referrals: None,Stated [Primary Care Provider] - 1-2 days Time of Disposition: 13:53 Decision to Admit Reason: Admit from EC Decision Date: 04/03/19 Decision Time: 13:54
[2019-04-03 13:04] LABS: Creatine Kinase MB 1.7 ng/mL (0.0-2.4); Troponin I <0.012 ng/mL (0.000-0.034)
[2019-04-03] MEDS ORDERED: AMPICILLIN-SULBACTAM 3 GM in SODIUM CHLORIDE 0.9% 100 ML IVPB STA (13:17)
[2019-04-03] MEDS ORDERED: VANCOMYCIN IV PER PHARMACY 1 EACH MISC MISCELLANE PRN (13:17)
[2019-04-03] MEDS ORDERED: VANCOMYCIN 1,500 MG in SODIUM CHLORIDE 0.9% 250 ML IVPB STA (13:20)
[2019-04-03] MEDS ORDERED: ALPRAZolam 0.5 MG TAB PO STA (13:29)
[2019-04-03] MEDS ORDERED: NALOXONE 0.4 MG/ML 1 ML VIAL IV PRN (13:54)
[2019-04-03] MEDS ORDERED: IBUPROFEN 400 MG TAB PO PRN (13:54)
[2019-04-03] MEDS: SODIUM CHLORIDE 0.9% 1,000 ML IV SCH (14:40)
[2019-04-03 15:35] VITALS: BMI 25.9
--- NOTE | 2019-04-03 16:29 | P.HPIM ---
History of Present Illness H&P Date: 04/03/19 Chief Complaint: Fatigue This is a 33-year-old white male who reports to the emergency room today because of feeling fatigued and tired. He was recently admitted at [facility], he had blood cultures 03/30/2019 which were positive for Streptococcus pyogenes and staph aureus. His white count was 13.2. His initial presentation to the outside facility was 03/25/2019 at that time his lactic acid was 2.9. He underwent a chest x-ray which was unremarkable for acute findings he was started on vancomycin and Zosyn in the emergency room at [facility] . He has a history of hand abscess which grew Streptococcus angiolysis and Eikenella corrodens. WBC normalized to 10.1 03/26/2019. 03/26/[address] which was negative for acute findings He was maintained on vancomycin and Unasyn at the outside facility. At the outside facility his urine exam was positive for marijuana, opiates and amphetamines. [place] [id number] He had a 2-D echo 03/25/2019 which was consistent with: Normal left ventricle Normal left ventricular wall thickness EF 55-60%. He signed his medical advice from the outside facility 03/29/2019 and has been home for the past 4 days. He states that he has not been feeling well at home. He has been lethargic but denies fever or chills. He denies nausea or vomiting. He reports occasional shortness of breath. Review of Systems 10 systems reviewed pertinent positive and negative findings as in HPI. No chest pain or abdominal pain, + lethargy. Past Medical History Past Medical History: GERD/Reflux, Hypertension Additional Past Medical History / Comment(s): Hepatitis C, DDD, back pain, bilateral carpel tunnel syndrome. History of Any Multi-Drug Resistant Organisms: None Reported MDRO Source:: unknown Past Surgical History: No Surgical Hx Reported Additional Past Anesthesia/Blood Transfusion Reaction / Comment(s): Pt states he has never had surgery. Smoking Status: Current every day smoker - Past Family History Father Family Medical History: Coronary Artery Disease (CAD) Additional Family Medical History / Comment(s): Father is . Mother Family Medical History: Rheumatoid Arthritis (RA) Additional Family Medical History / Comment(s): Mother is . Medications and Allergies Home Medications Medication Instructions Recorded Confirmed Type Sertraline [Zoloft] 50 mg PO HS 30 Days #30 tab 02/19/19 04/03/19 Rx cloNIDine HCL [Catapres] 0.2 mg PO BID 30 Days #60 tab 02/19/19 04/03/19 Rx hydrOXYzine PAMOATE [Vistaril] 50 mg PO Q8HR PRN 30 Days #90 cap 02/19/19 04/03/19 Rx Divalproex ER [Depakote ER] 500 mg PO HS 03/17/19 04/03/19 History Paliperidone IM [Invega Sustenna] 234 mg IM DIRECTED 03/17/19 04/03/19 History traZODone HCL 100 mg PO HS 03/17/19 04/03/19 History Buprenorphine HCl/Naloxone HCl 1 film PO DAILY 04/03/19 04/03/19 History [Suboxone 8 mg-2 mg Sl Film] Cephalexin [Keflex] 500 mg PO QID 04/03/19 04/03/19 History Escitalopram [Lexapro] 10 mg PO DAILY 04/03/19 04/03/19 History Allergies Allergy/AdvReac Type Severity Reaction Status Date / Time No Known Allergies Allergy Verified 04/03/19 11:49 Physical Exam Vitals: Vital Signs Temp Pulse Pulse Resp BP BP Pulse Ox 04/03/19 15:00 97.2 F L 75 16 139/85 100 04/03/19 14:46 97.0 F L 90 18 130/78 97 04/03/19 14:02 97.0 F L 90 16 130/90 100 04/03/19 11:22 98.1 F 76 22 128/84 98 Intake and Output 04/03/19 04/03/19 04/03/19 06:59 14:59 22:59 Other: Weight 77.564 kg Constitutional: No acute distress, anxious Eyes: Anicteric sclerae, moist conjunctiva, PERRLA ENMT: NC/AT Neck:Supple, or JVD, No carotid bruits; No thyromegaly Lungs: Clear to auscultation, Clear to percussion, Normal respiratory effort, no accessory muscle use Cardiovascular: Heart regular in rate and rhythm, No murmurs, gallops, or rubs no peripheral edema Abdominal: Soft Nontender, nom distended, no guarding, no rebound or rigidity, Normoactive bowel sounds Skin: Normal temperature Extremities:No digital cyanosis No clubbing, Normal gait and station, No calf tenderness Psychiatric: Alert and oriented to person, place and time, Appropriate affect Intact judgement Neuro: Muscles Strength 5/5 in all 4 extremities, Sensation to light touch grossly present throughout, Cranial nerves II-XII grossly intact. No focal se nsory deficits Results CBC & Chem 7: 04/03/19 12:15 04/03/19 12:15 Labs: Abnormal Lab Results - Last 24 Hours (Table) 04/03/19 04/03/19 Range/Units 12:15 12:15 RBC 4.17 L (4.30-5.90) m/uL Hgb 11.6 L (13.0-17.5) gm/dL Hct 35.3 L (39.0-53.0) % Creatinine 0.64 L (0.66-1.25) mg/dL Glucose 108 H (74-99) mg/dL Thrombosis Risk Factor Assmnt - Choose All That Apply Any of the Below Risk Factors Present?: Yes Each Factor Represents 1 point: Obesity (BMI >25) Other Risk Factors: No Other congenital or acquired thrombophilia - If yes, enter type in comment: No Thrombosis Risk Factor Assessment Total Risk Factor Score: 1 Thrombosis Risk Factor Assessment Level: Low Risk Assessment and Plan Plan: 1. Bacteremia, with strep and staph: Repeat blood cultures, IV antibiotics with vancomycin and Unasyn, repeat 2-D echo, cardiology and ID consultation. 2. Severe anxiety: IV Ativan as needed 3. Chronic hepatitis C, conservative treatment, needs GI follow-up as an outpatient 4. Illicit drug use: With IV methamphetamine and, IV heroin, and oral Suboxone, conservative treatment 5. Tobacco use without evidence of withdrawal: nicotine patch as indicated 6. Depression: Needs psychiatry evaluation as an outpatient 7. ADD/ADHD: Will benefit from psychiatric evaluation as an outpatient 8. GERD without esophagitis: PPI DVT prophylaxis Disposition: Home once clinically stable
[2019-04-03] MEDS: LORazepam 2 MG/ML INJ IV PRN (17:09)
[2019-04-03] MEDS: ESCITALOPRAM 10 MG TAB PO SCH (17:57)
[2019-04-03] MEDS: HYDROcodone/APAP 5-325MG 1 EACH TAB PO PRN (19:41)
[2019-04-03] MEDS ORDERED: SERTRALINE 50 MG TAB PO SCH (21:00)
[2019-04-03] MEDS ORDERED: traZODone HCL 100 MG TAB PO SCH (21:00)
[2019-04-03] MEDS ORDERED: DIVALPROEX ER 500 MG TAB.ER.24H PO SCH (21:00)
[2019-04-03] MEDS: NICOTINE 21MG/24HR PATCH TRANSDERM SCH (21:00)
[2019-04-03] MEDS: AMPICILLIN-SULBACTAM 1.5 GM in SODIUM CHLORIDE 0.9% 50 ML IVPB SCH (21:01)
[2019-04-03] MEDS: VANCOMYCIN 1,500 MG in SODIUM CHLORIDE 0.9% 250 ML IVPB SCH (22:53)
[2019-04-04] MEDS: AMPICILLIN-SULBACTAM 1.5 GM in SODIUM CHLORIDE 0.9% 50 ML IVPB SCH ×2 (04:10→12:02)
[2019-04-04] MEDS: SODIUM CHLORIDE 0.9% 1,000 ML IV SCH ×2 (04:10→11:59)
[2019-04-04] MEDS: LORazepam 2 MG/ML INJ IV PRN ×2 (04:35→11:58)
[2019-04-04] MEDS: VANCOMYCIN 1,500 MG in SODIUM CHLORIDE 0.9% 250 ML IVPB SCH (05:32)
[2019-04-04] MEDS: ESCITALOPRAM 10 MG TAB PO SCH (07:52)
[2019-04-04] MEDS: HYDROcodone/APAP 5-325MG 1 EACH TAB PO PRN (07:52)
[2019-04-04 08:33] LABS: Basophils # (A) 0.1 k/uL (0-0.2); Basophils % (A) 1 %; Eosinophils # (A) 0.2 k/uL (0-0.7); Eosinophils % (A) 4 %; HCT 36.3 % (39.0-53.0); HGB 11.5 gm/dL (13.0-17.5); Hypochromasia Slight; Lymphocytes # (A) 2.3 k/uL (1.0-4.8); Lymphocytes % (A) 44 %; MCH 27.7 pg (25.0-35.0); MCHC 31.7 g/dL (31.0-37.0); MCV 87.4 fL (80.0-100.0); Mean Platelet Volume 7.1; Monocytes # (A) 0.4 k/uL (0-1.0); Monocytes % (A) 8 %; Neutrophils % (A) 39 %; Platelet Count 271 k/uL (150-450); RBC 4.15 m/uL (4.30-5.90); RDW 14.9 % (11.5-15.5); WBC 5.2 k/uL (3.8-10.6)
[2019-04-04 08:41] LABS: ALT 33 U/L (21-72); AST 20 U/L (17-59); Albumin 2.8 g/dL (3.5-5.0); Alkaline Phosphatase 38 U/L (38-126); Anion Gap 3 mmol/L; Blood Urea Nitrogen 12 mg/dL (9-20); Calcium 8.5 mg/dL (8.4-10.2); Carbon Dioxide 26 mmol/L (22-30); Chloride 112 mmol/L (98-107); Glucose 97 mg/dL (74-99); Potassium 4.3 mmol/L (3.5-5.1); Sodium 141 mmol/L (137-145); Total Bilirubin 0.1 mg/dL (0.2-1.3); Total Protein 5.9 g/dL (6.3-8.2)
--- NOTE | 2019-04-04 09:50 | ECHOF ---
Referral Reason:r/o endocarditis MEASUREMENTS -------- HEIGHT: 172.7 cm WEIGHT: 77.6 kg BP: 128/84 RVIDd: 3.2 cm (< 3.3) IVSd: 1.1 cm (0.6 - 1.1) LVIDd: 4.5 cm (3.9 - 5.3) LVPWd: 1.2 cm (0.6 - 1.1) IVSs: 1.6 cm LVIDs: 3.2 cm LVPWs: 1.6 cm LAESV Index (A-L): 31.05 ml/m Ao Diam: 3.2 cm (2.0 - 3.7) AV Cusp: 2.3 cm (1.5 - 2.6) LA Diam: 3.6 cm (2.7 - 3.8) MV EXCURSION: 23.601 mm (> 18.000) MV EF SLOPE: 134 mm/s (70 - 150) EPSS: 0.7 cm MV E Chicho: 0.96 m/s MV DecT: 159 ms MV A Chicho: 0.53 m/s MV E/A Ratio: 1.79 RAP: 5.00 mmHg RVSP: 34.99 mmHg FINDINGS -------- Sinus rhythm. This was a technically adequate study. The left ventricular size is normal. There is borderline concentric left ventricular hypertrophy. Overall left ventricular systolic function is normal with, an EF between 55 - 60 %. The right ventricle is normal in size. The left atrial size is normal. Normal LA size by volume 22+/-6 ml/m2. The right atrial size is normal. Interatrial and interventricular septum intact. The aortic valve is trileaflet and appears structurally normal. The mitral valve is normal. Mild tricuspid regurgitation present. There is no evidence of pulmonary hypertension. The right v entricular systolic pressure, as measured by Doppler, is 34.99mmHg. The pulmonic valve is normal. The aortic root size is normal. Normal inferior vena cava with normal inspiratory collapse consistent with estimated right atrial pre ssure of 5 mmHg. There is a trivial pericardial effusion present. CONCLUSIONS -------- 1. Sinus rhythm. 2. This was a technically adequate study. 3. The left ventricular size is normal. 4. There is borderline concentric left ventricular hypertrophy. 5. Overall left ventricular systolic function is normal with, an EF between 55 - 60 %. 6. The right ventricle is normal in size. 7. The left atrial size is normal. 8. Normal LA size by volume 22+/-6 ml/m2. 9. The right atrial size is normal. 10. Interatrial and interventricular septum intact. 11. The aortic valve is trileaflet and appears structurally normal. 12. The mitral valve is normal. 13. Mild tricuspid regurgitation present. 14. There is no evidence of pulmonary hypertension. 15. The right ventricular systolic pressure, as measured by Doppler, is 34.99mmHg. 16. The pulmonic valve is normal. 17. The aortic root size is normal. 18. Normal inferior vena cava with normal inspiratory collapse consistent with estimated right atrial pressure of 5 mmHg. 19. There is a trivial pericardial effusion present. TRAINING CONSULTANT: Marisabel Cortes RDCS
--- NOTE | 2019-04-04 09:59 | P.PN ---
Subjective Progress Note Date: 04/04/19 Principal diagnosis: Bacteremia HPI: This is a 33-year-old white male who reports to the emergency room today because of feeling fatigued and tired. He was recently admitted at [facility], he had blood cultures 03/30/2019 which were positive for Streptococcus pyogenes and staph aureus. His white count was 13.2. His initial presentation to the outside facility was 03/25/2019 at that time his lactic acid was 2.9. He underwent a chest x-ray which was unremarkable for acute findings he was started on vancomycin and Zosyn in the emergency room at [facility] . He has a history of hand abscess which grew Streptococcus angiolysis and Eikenella corrodens. WBC normalized to 10.1 03/26/2019. 03/26/[address] which was negative for acute findings He was maintained on vancomycin and Unasyn at the outside facility. At the outside facility his urine exam was positive for marijuana, opiates and amphetamines. [place] [id number] He had a 2-D echo 03/25/2019 which was consistent with: Normal left ventricle Normal left ventricular wall thickness EF 55-60%. He signed his medical advice from the outside facility 03/29/2019 and has been home for the past 4 days. 04/04/2019: He feels better today, anxiety is significantly better, he is sleepy, but does not appear to be in distress. He remained afebrile, no nausea no vomiting no chest pain no shortness of breath. Objective - Vital Signs Vital signs: Vital Signs Temp 97.5 F L 04/04/19 05:21 Pulse 93 04/04/19 08:00 Resp 18 04/04/19 08:00 BP 143/88 04/04/19 05:21 Pulse Ox 96 04/04/19 05:21 Intake & Output 04/03/19 04/04/19 04/04/19 18:59 06:59 18:59 Weight 77.564 kg Other: Voiding Method Toilet Toilet # Voids 2 - Exam Constitutional: No acute distress, sleepy. Eyes: Anicteric sclerae, moist conjunctiva, PERRLA ENMT: NC/AT Neck:Supple, or JVD Lungs: Clear to auscultation, Clear to percussion, Normal respiratory effort, no accessory muscle use Cardiovascular: Heart regular in rate and rhythm, No murmurs, gallops, or rubs no peripheral edema Abdominal: Soft Nontender, nom distended, no guarding, no rebound or rigidity, Normoactive bowel sounds Extremities:No digital cyanosis No clubbing, Normal gait and station, No calf tenderness Psychiatric: Alert and oriented to person, place and time Neuro: Muscles Strength 5/5 in all 4 extremities, Sensation to light touch grossly present throughout, Cranial nerves II-XII grossly intact. No focal sensory deficits - Labs CBC & Chem 7: 04/04/19 07:48 04/04/19 07:48 Labs: Abnormal Lab Results - Last 24 Hours (Table) 04/03/19 04/03/19 04/04/19 Range/Units 12:15 12:15 07:48 RBC 4.17 L 4.15 L (4.30-5.90) m/uL Hgb 11.6 L 11.5 L (13.0-17.5) gm/dL Hct 35.3 L 36.3 L (39.0-53.0) % Chloride (98-107) mmol/L Creatinine 0.64 L (0.66-1.25) mg/dL Glucose 108 H (74-99) mg/dL Total Bilirubin (0.2-1.3) mg/dL Total Protein (6.3-8.2) g/dL Albumin (3.5-5.0) g/dL 04/04/19 Range/Units 07:48 RBC (4.30-5.90) m/uL Hgb (13.0-17.5) gm/dL Hct (39.0-53.0) % Chloride 112 H (98-107) mmol/L Creatinine 0.63 L (0.66-1.25) mg/dL Glucose (74-99) mg/dL Total Bilirubin 0.1 L (0.2-1.3) mg/dL Total Protein 5.9 L (6.3-8.2) g/dL Albumin 2.8 L (3.5-5.0) g/dL Microbiology - Last 24 Hours (Table) 04/03/19 12:15 Urine Culture - Preliminary Urine,Voided Assessment and Plan Plan: 1. Bacteremia, with strep and staph: Repeated blood cultures 04/03/2019, continue IV antibiotics with vancomycin and Unasyn, repeat 2-D echo, cardiology and ID consultation. No leukocytosis and patient remains afebrile. 2. Severe anxiety: IV Ativan as needed, continue oral trazodone outpatient. 3. Chronic hepatitis C, conservative treatment, needs GI follow-up as an outpatient 4. Illicit drug use: With IV methamphetamine and, IV heroin, and oral Suboxone, conservative treatment, monitor for any signs of withdrawal. 5. Tobacco use without evidence of withdrawal: nicotine patch 6. Depression: Needs psychiatry evaluation as an outpatient, continues on Lexapro and Depakote for outpatient 7. ADD/ADHD: Will benefit from psychiatric evaluation as an outpatient 8. GERD without esophagitis: PPI DVT prophylaxis Disposition: Home once clinically stable in 2 to 3 days.
[2019-04-04] MEDS ORDERED: PANTOPRAZOLE 40 MG TABLET PO SCH (10:00)
[2019-04-04] MEDS: NICOTINE 21MG/24HR PATCH TRANSDERM SCH (12:03)
[2019-04-04 12:10] VITALS: BP 117/71; PULSE 76; RESP 16; TEMP 97.8
--- NOTE | 2019-04-04 14:00 | P.CRDCN ---
History of Present Illness History of present illness: This is a 33-year-old male past medical history significant for IV drug use, positive blood cultures at [facility] last week with blood cultures positive for Streptococcus. She needs and staph aureus. He left the facility AGAINST MEDICAL ADVICE on March 29. He states he continue to use heroin over the previous week and came back to the hospital yesterday for treatment. He denies symptoms of chest discomfort, shortness of breath, dizziness, palpitations, nausea, vomiting or diaphoresis. He is quite lethargic at the time of my exam and appears to be dozing off during conversation. Echocardiogram obtained the emergency department reveals preserved LV systolic function with ejection fraction 55-60%, mild tricuspid regurgitation and atrial pericardial effusion. Laboratory data reviewed, WBC 5.2, hemoglobin 11.5, platelets 271, sodium 141, potassium 4.3, creatinine 0.63, cardiac enzymes negative 1. Blood pressure 117/71 heart rate 76 afebrile maintaining oxygen saturation on room air. At the time of my exam: CONSTITUTIONAL: Denies fever. Denies chills. EYES: Denies blurred vision. Denies vision changes. Denies eye pain. EARS, NOSE, MOUTH & THROAT: Denies headache. Denies sore throat. Denies ear pain. CARDIOVASCULAR: Denies chest pain. Denies shortness of breath. Denies orthopnea. Denies PND. Denies palpitations. RESPIRATORY: Denies cough. GASTROINTESTINAL: Denies abdominal pain. Denies diarrhea. Denies constipation. Denies nausea. Denies vomiting. MUSCULOSKELETAL: Denies myalgias. INTEGUMENTARY: Denies pruitis. Denies rash. NEUROLOGIC: Denies numbness. Denies tingling. Denies weakness. PSYCHIATRIC: Denies anxiety. Denies depression. ENDOCRINE: Denies fatigue. Denies weight change. Denies polydipsia. Denies polyurina. GENITOURINARY: Denies burning, hematuria or urgency with micturation. HEMATOLOGIC: Denies history of anemia. Denies bleeding. GENERAL: This is a 33-year-old male in no apparent distress at the time of my examination. HEENT: Head is atraumatic, normocephalic. Pupils are equal, round. Sclerae anicteric. Conjunctivae are clear. Mucous membranes of the mouth are moist. Neck is supple. There is no jugular venous distention. No carotid bruit is heard. LUNGS: Clear to auscultation no wheezes, rales or rhonchi. No chest wall t enderness is noted on palpation or with deep breathing. HEART: Regular rate and rhythm without murmurs, rubs or gallops. S1 and S2 heard. ABDOMEN: Soft, nontender. Bowel sounds are heard. No organomegaly noted. EXTREMITIES: No evidence of peripheral edema and no calf tenderness noted. VASCULAR: Radial and dorsalis pedis pulses palpated, no evidence of clubbing. NEUROLOGIC: Patient is awake, alert and oriented x3. ASSESSMENT Strep and staph bacteremia maintained on IV antibiotics Hepatitis C IV drug abuse with heroin and methamphetamine PLAN We will perform PEDRO tomorrow to rule out infective endocarditis. Patient is requesting anesthesia sedation for the procedure. This has boarded for tomorrow at 11:30. Procedure explained to the patient in great detail and he is agreeable to move forward. Thank you kindly for this consultation. Nurse Practitioner note has been reviewed, I agree with a documented findings and plan of care. Patient was seen and examined. Past Medical History Past Medical History: GERD/Reflux, Hypertension Additional Past Medical History / Comment(s): Hepatitis C, DDD, back pain, bilateral carpel tunnel syndrome. History of Any Multi-Drug Resistant Organisms: None Reported MDRO Source:: unknown Past Surgical History: No Surgical Hx Reported Additional Past Anesthesia/Blood Transfusion Reaction / Comment(s): Pt states he has never had surgery. Smoking Status: Current every day smoker - Past Family History Father Family Medical History: Coronary Artery Disease (CAD) Additional Family Medical History / Comment(s): Father is . Mother Family Medical History: Rheumatoid Arthritis (RA) Additional Family Medical History / Comment(s): Mother is . Medications and Allergies Home Medications Medication Instructions Recorded Confirmed Type Sertraline [Zoloft] 50 mg PO HS 30 Days #30 tab 02/19/19 04/03/19 Rx cloNIDine HCL [Catapres] 0.2 mg PO BID 30 Days #60 tab 02/19/19 04/03/19 Rx hydrOXYzine PAMOATE [Vistaril] 50 mg PO Q8HR PRN 30 Days #90 cap 02/19/19 0 04/03/19 Rx Divalproex ER [Depakote ER] 500 mg PO HS 03/17/19 04/03/19 History Paliperidone IM [Invega Sustenna] 234 mg IM DIRECTED 03/17/19 04/03/19 History traZODone HCL 100 mg PO HS 03/17/19 04/03/19 History Buprenorphine HCl/Naloxone HCl 1 film PO DAILY 04/03/19 04/03/19 History [Suboxone 8 mg-2 mg Sl Film] Cephalexin [Keflex] 500 mg PO QID 04/03/19 04/03/19 History Escitalopram [Lexapro] 10 mg PO DAILY 04/03/19 04/03/19 History Allergies Allergy/AdvReac Type Severity Reaction Status Date / Time No Known Allergies Allergy Verified 04/03/19 11:49 Physical Exam Vitals: Vital Signs Temp Pulse Pulse Resp BP BP Pulse Ox 04/04/19 12:09 97.8 F 76 16 117/71 99 04/04/19 11:56 93 18 04/04/19 08:00 93 18 04/04/19 05:21 97.5 F L 93 18 143/88 96 04/03/19 21:06 98.1 F 77 18 118/69 100 04/03/19 15:00 97.2 F L 75 16 139/85 100 04/03/19 14:46 97.0 F L 90 18 130/78 97 04/03/19 14:02 97.0 F L 90 16 130/90 100 Intake and Output 04/03/19 04/04/19 04/04/19 22:59 06:59 14:59 Other: Voiding Method Toilet Toilet # Voids 1 2 Results 04/04/19 07:48 04/04/19 07:48 Cardiac Enzymes 04/04/19 Range/Units 07:48 AST 20 (17-59) U/L CBC 04/04/19 Range/Units 07:48 WBC 5.2 (3.8-10.6) k/uL RBC 4.15 L (4.30-5.90) m/uL Hgb 11.5 L (13.0-17.5) gm/dL Hct 36.3 L (39.0-53.0) % Plt Count 271 (150-450) k/uL Comprehensive Metabolic Panel 04/04/19 Range/Units 07:48 Sodium 141 (137-145) mmol/L Potassium 4.3 (3.5-5.1) mmol/L Chloride 112 H (98-107) mmol/L Carbon Dioxide 26 (22-30) mmol/L BUN 12 (9-20) mg/dL Creatinine 0.63 L (0.66-1.25) mg/dL Glucose 97 (74-99) mg/dL Calcium 8.5 (8.4-10.2) mg/dL AST 20 (17-59) U/L ALT 33 (21-72) U/L Alkaline Phosphatase 38 (38-126) U/L Total Protein 5.9 L (6.3-8.2) g/dL Albumin 2.8 L (3.5-5.0) g/dL Current Medications Generic Name Dose Route Start Last Admin Trade Name Freq PRN Reason Stop Dose Admin Hydrocodone Bitart/Acetaminophen 1 each 04/03/19 16:40 04/04/19 07:52 [place] 5-325 PO 1 each Q6HR PRN Administration Pain Cefazolin Sodium 2 gm 04/04/19 16:00 Kefzol IVP Q8HR KATARZYNA Divalproex Sodium 500 mg 04/03/19 21:00 04/03/19 21:01 Depakote Er PO 500 mg HS KATARZYNA Administration Escitalopram Oxalate 10 mg 04/03/19 16:45 04/04/19 07:52 Lexapro PO 10 mg DAILY KATARZYNA Administration Sodium Chloride 1,000 mls @ 100 mls/hr 04/03/19 14:00 04/04/19 11:59 Saline 0.9% IV 100 mls/hr .Q10H KATARZYNA Administration Ibuprofen 400 mg 04/03/19 13:54 04/04/19 04:34 Motrin PO 400 mg Q6HR PRN Administration Mild Pain or Fever > 100.5 Lorazepam 1 mg 04/03/19 16:36 04/04/19 11:58 Ativan IV 1 mg Q6HR PRN Administration Anxiety Miscellaneous Information 0 each 04/04/19 21:00 Vancomycin Trough Due MISCELLANE 04/04/19 21:01 DIRECTED ONE Naloxone HCl 0.2 mg 04/03/19 13:54 Narcan IV Q2M PRN Opioid Reversal Nicotine 1 patch 04/03/19 18:45 04/04/19 12:03 Habitrol 21mg/24hr Patch TRANSDERM 1 patch DAILY KATARZYNA Administration Pantoprazole Sodium 40 mg 04/04/19 10:00 04/04/19 11:58 Protonix PO Not Given AC-BRKFST KATARZYNA Sertraline HCl 50 mg 04/03/19 21:00 04/03/19 21:00 Zoloft PO 50 mg HS KATARZYNA Administration Trazodone HCl 100 mg 04/03/19 21:00 04/03/19 21:00 Desyrel PO 100 mg HS KATARZYNA Administration Intake and Output 04/03/19 04/04/19 04/04/19 22:59 06:59 14:59 Other: Voiding Method Toilet Toilet # Voids 1 2 04/04/19 07:48 04/04/19 07:48
[2019-04-04] MEDS ORDERED: ceFAZolin IN SWFI 2 GM/20 ML SYRINGE IVP SCH (16:00)
--- NOTE | 2019-04-04 16:03 | P.DS ---
Providers Date of admission: 04/04/19 11:15 Attending physician: Praveen Sanchez MD Consults: 04/03/19 13:54 Consult Physician Routine Consulting Provider: Jose Rafael Kolb Consult Reason/Comments: pt from [facility], + blood cultures at outside facility, IVDU Do you want consulting provider notified?: Yes 04/03/19 16:36 Consult Physician Routine Consulting Provider: [facility] Consult Reason/Comments: staph bacteremia IV drug use Do you want consulting provider notified?: Yes Primary care physician: Stated None Hospital Course: Diagnoses upon discharge: 1. Bacteremia, with strep and staph 2. Severe anxiety 3. Chronic hepatitis C 4. Illicit drug use: With IV methamphetamine and, IV heroin, and oral Suboxone 5. Tobacco use without evidence of withdrawal 6. Depression 7. ADD/ADHD 8. GERD without esophagitis HPI: This is a 33-year-old white male who reports to the emergency room today because of feeling fatigued and tired. He was recently admitted at [facility], he had blood cultures 03/30/2019 which were positive for Streptococcus pyogenes and staph aureus. His white count was 13.2. His initial presentation to the outside facility was 03/25/2019 at that time his lactic acid was 2.9. He underwent a chest x-ray which was unremarkable for acute findings he was started on vancomycin and Zosyn in the emergency room at [facility] . He has a history of hand abscess which grew Streptococcus angiolysis and Eikenella corrodens. WBC normalized to 10.1 03/26/2019. 03/26/[address] which was negative for acute findings He was maintained on vancomycin and Unasyn at the outside facility. At the outside facility his urine exam was positive for marijuana, opiates and amphetamines. His hepatitis C quantification [place] [id number] He had a 2-D echo 03/25/2019 which was consistent with: Normal left ventricle Normal left ventricular wall thickness EF 55-60%. He signed his medical advice from the outside facility 03/29/2019 and has been home for the past 4 days. He states that he has not been feeling well at home. He has been lethargic but denies fever or chills. He denies nausea or vomiting. He reports occasional shortness of breath. Hospital course and treatment: Patient was admitted to the hospital, he was started on IV vancomycin and Unasyn. He remained afebrile with no leukocytosis. Blood cultures were obtained. Infectious disease were consulted. Cardiology consulted, 2-D echo requested. Plan for PEDRO 04/05/2019 but patient unfortunately signed AGAINST MEDICAL ADVICE. For his anxiety he was treated with IV Ativan as well as his outpatient medications. He was counseled regarding illicit drug use. Patient again signed AGAINST MEDICAL ADVICE Patient Condition at Discharge: Good Plan - Discharge Summary Discharge Rx Participant: No New Discharge Prescriptions: New ceFAZolin [Kefzol] 2 gm IVP Q8HR syringe Continue cloNIDine HCL [Catapres] 0.2 mg PO BID 30 Days #60 tab hydrOXYzine PAMOATE [Vistaril] 50 mg PO Q8HR PRN 30 Days #90 cap PRN Reason: breakthrough anxiety Sertraline [Zoloft] 50 mg PO HS 30 Days #30 tab Paliperidone IM [Invega Sustenna] 234 mg IM DIRECTED Divalproex ER [Depakote ER] 500 mg PO HS traZODone HCL 100 mg PO HS Buprenorphine HCl/Naloxone HCl [Suboxone 8 mg-2 mg Sl Film] 1 film PO DAILY Escitalopram [Lexapro] 10 mg PO DAILY Cephalexin [Keflex] 500 mg PO QID Discharge Medication List Sertraline [Zoloft] 50 mg PO HS 30 Days #30 tab 02/19/19 [Rx] cloNIDine HCL [Catapres] 0.2 mg PO BID 30 Days #60 tab 02/19/19 [Rx] hydrOXYzine PAMOATE [Vistaril] 50 mg PO Q8HR PRN 30 Days #90 cap 02/19/19 [Rx] Divalproex ER [Depakote ER] 500 mg PO HS 03/17/19 [History] Paliperidone IM [Invega Sustenna] 234 mg IM DIRECTED 03/17/19 [History] traZODone HCL 100 mg PO HS 03/17/19 [History] Buprenorphine HCl/Naloxone HCl [Suboxone 8 mg-2 mg Sl Film] 1 film PO DAILY 04/03/19 [History] Cephalexin [Keflex] 500 mg PO QID 04/03/19 [History] Escitalopram [Lexapro] 10 mg PO DAILY 04/03/19 [History] ceFAZolin [Kefzol] 2 gm IVP Q8HR syringe 04/04/19 [Rx] Follow up Appointment(s)/Referral(s): None,Stated [Primary Care Provider] - 1-2 days
[2019-04-04] MEDS ORDERED: AMOXIC-POT CLAV 875-125MG 1 EACH TAB PO SCH (21:00)
[2019-04-04] MEDS ORDERED: VANCOMYCIN TROUGH DUE 1 EACH MISC MISCELLANE ONE (21:00)
--- NOTE | 2019-04-04 23:07 | P.CONS ---
History of Present Illness - Reason for Consult Consult date: 04/04/19 - Chief Complaint Fever and malaise - History of Present Illness 33-year-old male known to the service from his recent stay at the outside hospital. At that point in time he presented with fever, 103 and relative hypotension. At the time of admission the patient had evidence of polysubstance abuse including methamphetamine and heroin. At the time the patient relates that he was released from the retirement he was in because of the drugs and paraphernalia he had on his person while at the retirement. The patient relates after he left AMA from another hospital streets which he often does, currently with his girlfriend. The cultures from the hospital did reveal evidence of MSSA and Streptococcus pyogenous. Given that the patient was leaving AMA from the facility cephalexin was provided orally until he sought further care. Released her to feel ill and more week and calcium presented to this facility for further evaluation. At presentation the patient had fever but does no doroteo patricio have leukocytosis. He was ill and was brought in the hospital for further evaluation. Repeat echocardiogram has been performed. Is contemplation for a PEDRO. The patient voices his greatest concern of the inadequacy of the pain medication that he is receiving here. Review of Systems HEENT: Does complain of headache but no visual change. No sinus or mouth discomfort. No stiffness of his neck. No difficulty with swallowing. Lungs: Denies significant shortness of breath, cough, sputum production, or hemoptysis. Cardiovascular: Denies significant shortness of breath, chest pain, chest wall pain, orthopnea, dyspnea on exertion, syncope Gastrointestinal:Denies nausea, vomiting, diarrhea, constipation, hematemesis, melena, hematochezia. No no significant change of bowel habit noticed. Musculoskeletal: denies significant myalgias or arthralgias. No new joint swelling. Denies new back pain. Skin: Denies new rash or lesions. No new ulcers or wounds are related.. Neuro: Denies headache or visual change. Denies any new onset weakness or difficulty with ambulation. Denies falls or seizures. Psychiatric: Anxiety depression and chemical dependence Endocrine: Chronic fatigue and weight loss Past Medical History Past Medical History: GERD/Reflux, Hypertension Additional Past Medical History / Comment(s): Hepatitis C, DDD, back pain, bilateral carpel tunnel syndrome. History of Any Multi-Drug Resistant Organisms: None Reported MDRO Source:: unknown Past Surgical History: No Surgical Hx Reported Additional Past Anesthesia/Blood Transfusion Reaction / Comm: Pt states he has never had surgery. Additional Psychological History / Comment(s): Positive tobacco use. Polysubstance abuse with heroin, methamphetamine, Suboxone, cannabis. Does inject drugs, does not use fresh every time. During the last stay no evidence of MRSA. HIV and hepatitis C testing was in process Smoking Status: Current every day smoker - Past Family History Father Family Medical History: Coronary Artery Disease (CAD) Additional Family Medical History / Comment(s): Father is . Mother Family Medical History: Rheumatoid Arthritis (RA) Additional Family Medical History / Comment(s): Mother is . Medications and Allergies Home Medications and Allergies Comment(s): Intravenous antibiotic therapy with Ancef was initiated Home Medications Medication Instructions Recorded Confirmed Type Sertraline [Zoloft] 50 mg PO HS 30 Days #30 tab 02/19/19 04/03/19 Rx cloNIDine HCL [Catapres] 0.2 mg PO BID 30 Days #60 tab 02/19/19 04/03/19 Rx hydrOXYzine PAMOATE [Vistaril] 50 mg PO Q8HR PRN 30 Days #90 cap 02/19/19 04/03/19 Rx Divalproex ER [Depakote ER] 500 mg PO HS 03/17/19 04/03/19 History Paliperidone IM [Invega Sustenna] 234 mg IM DIRECTED 03/17/19 04/03/19 History traZODone HCL 100 mg PO HS 03/17/19 04/03/19 History Buprenorphine HCl/Naloxone HCl 1 film PO DAILY 04/03/19 04/03/19 History [Suboxone 8 mg-2 mg Sl Film] Cephalexin [Keflex] 500 mg PO QID 04/03/19 04/03/19 History Escitalopram [Lexapro] 10 mg PO DAILY 04/03/19 04/03/19 History ceFAZolin [Kefzol] 2 gm IVP Q8HR syringe 04/04/19 Rx Allergies Allergy/AdvReac Type Severity Reaction Status Date / Time No Known Allergies Allergy Verified 04/03/19 11:49 Physical Exam Vitals: Vital Signs Temp Pulse Resp BP Pulse Ox 04/04/19 14:22 76 16 04/04/19 12:09 97.8 F 76 16 117/71 99 04/04/19 11:56 93 18 04/04/19 08:00 93 18 04/04/19 05:21 97.5 F L 93 18 143/88 96 Intake and Output 04/04/19 04/04/19 04/04/19 06:59 14:59 22:59 Intake Total 360 Balance 360 Intake: Oral 360 Other: Voiding Method Toilet Toilet # Voids 2 2 33-year-old male unkept of a thin appearance HEENT: Anicteric conjunctiva are pink and moist nasal mucosa grossly intact without significant lesions, there is no thrush. Neck: The neck is supple without significant lymphadenopathy or thyromegaly. Lungs: Good bilateral air entry without significant crackles or wheezing. There is no significant bronchial sounds. There is no egophony or dullness. Heart: Regular rate and rhythm with an audible S1-S2, no S3 no S4. There is no significant murmur click or rub, PMI was nondisplaced. Abdomen: Positive bowel sounds soft and nontender without palpable masses or organomegaly. There was no guarding or rebound. Extremities: The upper extremities have excellent pulses they are symmetric, no significant petechiae or telangiectasia. No splinter hemorrhages were noted. The lower extremities are free from significant edema. The peripheral pulses were 2+ and symmetric. Neuro: Arousable upon awakening. No acute gross focal sensory motor deficits noted. Patient was not highly cooperative Results CBC & Chem 7: 04/04/19 07:48 04/04/19 07:48 Labs: Abnormal Lab Results - Last 24 Hours (Table) 04/04/19 04/04/19 Range/Units 07:48 07:48 RBC 4.15 L (4.30-5.90) m/uL Hgb 11.5 L (13.0-17.5) gm/dL Hct 36.3 L (39.0-53.0) % Chloride 112 H (98-107) mmol/L Creatinine 0.63 L (0.66-1.25) mg/dL Total Bilirubin 0.1 L (0.2-1.3) mg/dL Total Protein 5.9 L (6.3-8.2) g/dL Albumin 2.8 L (3.5-5.0) g/dL Microbiology - Last 24 Hours (Table) 04/03/19 12:15 Urine Culture - Final Urine,Voided 04/03/19 13:05 Blood Culture - Preliminary Blood No Growth after 24 hours Laboratory Results WBC 5.2 k/uL (3.8-10.6) 04/04/19 07:48 RBC 4.15 m/uL (4.30-5.90) L 04/04/19 07:48 Hgb 11.5 gm/dL (13.0-17.5) L 04/04/19 07:48 Hct 36.3 % (39.0-53.0) L 04/04/19 07:48 MCV 87.4 fL (80.0-100.0) 04/04/19 07:48 MCH 27.7 pg (25.0-35.0) 04/04/19 07:48 MCHC 31.7 g/dL (31.0-37.0) 04/04/19 07:48 RDW 14.9 % (11.5-15.5) 04/04/19 07:48 Plt Count 271 k/uL (150-450) 04/04/19 07:48 Neutrophils % 39 % 04/04/19 07:48 Lymphocytes % 44 % 04/04/19 07:48 Monocytes % 8 % 04/04/19 07:48 Eosinophils % 4 % 04/04/19 07:48 Basophils % 1 % 04/04/19 07:48 Neutrophils # 2.0 k/uL (1.3-7.7) 04/04/19 07:48 Lymphocytes # 2.3 k/uL (1.0-4.8) 04/04/19 07:48 Monocytes # 0.4 k/uL (0-1.0) 04/04/19 07:48 Eosinophils # 0.2 k/uL (0-0.7) 04/04/19 07:48 Basophils # 0.1 k/uL (0-0.2) 04/04/19 07:48 Hypochromasia Slight 04/04/19 07:48 Sodium 141 mmol/L (137-145) 04/04/19 07:48 Potassium 4.3 mmol/L (3.5-5.1) 04/04/19 07:48 Chloride 112 mmol/L (98-107) H 04/04/19 07:48 Carbon Dioxide 26 mmol/L (22-30) 04/04/19 07:48 Anion Gap 3 mmol/L 04/04/19 07:48 BUN 12 mg/dL (9-20) 04/04/19 07:48 Creatinine 0.63 mg/dL (0.66-1.25) L 04/04/19 07:48 Est GFR (CKD-EPI)AfAm >90 (>60 ml/min/1.73 sqM) 04/04/19 07:48 Est GFR (CKD-EPI)NonAf >90 (>60 ml/min/1.73 sqM) 04/04/19 07:48 Glucose 97 mg/dL (74-99) 04/04/19 07:48 Plasma Lactic Acid [place] 1.7 mmol/L (0.7-2.0) 04/03/19 12:15 Calcium 8.5 mg/dL (8.4-10.2) 04/04/19 07:48 Total Bilirubin 0.1 mg/dL (0.2-1.3) L 04/04/19 07:48 AST 20 U/L (17-59) 04/04/19 07:48 ALT 33 U/L (21-72) 04/04/19 07:48 Alkaline Phosphatase 38 U/L (38-126) 04/04/19 07:48 CK-MB (CK-2) 1.7 ng/mL (0.0-2.4) 04/03/19 12:15 Troponin I <0.012 ng/mL (0.000-0.034) 04/03/19 12:15 Total Protein 5.9 g/dL (6.3-8.2) L 04/04/19 07:48 Albumin 2.8 g/dL (3.5-5.0) L 04/04/19 07:48 Urine Color Yellow 04/03/19 12:15 Urine Appearance Clear (Clear) 04/03/19 12:15 Urine pH 5.5 (5.0-8.0) 04/03/19 12:15 Ur Specific [place] 1.021 (1.001-1.035) 04/03/19 12:15 Urine Protein Negative (Negative) 04/03/19 12:15 Urine Glucose (UA) Negative (Negative) 04/03/19 12:15 Urine Ketones Negative (Negative) 04/03/19 12:15 Urine Blood Negative (Negative) 04/03/19 12:15 Urine Nitrite Negative (Negative) 04/03/19 12:15 Urine Bilirubin Negative (Negative) 04/03/19 12:15 Urine Urobilinogen <2.0 mg/dL (<2.0) 04/03/19 12:15 Ur Leukocyte Esterase Negative (Negative) 04/03/19 12:15 Influenza Type A RNA Not Detected (Not Detectd) 04/03/19 13:05 Influenza Type B (PCR) Not Detected (Not Detectd) 04/03/19 13:05 Microbiology 04/03/19 12:15 Urine,Voided Urine Culture - Final 04/03/19 13:05 Blood Blood Culture - Preliminary No Growth after 24 hours Assessment and Plan (1) Polysubstance abuse Status: Acute Priority: Low Code(s): F19.10 - OTHER PSYCHOACTIVE SUBSTANCE ABUSE, UNCOMPLICATED SNOMED Code(s): 150062680 (2) Uses drugs by injection Status: Acute Code(s): VNO2347 - SNOMED Code(s): 713926566 (3) MSSA bacteremia Narrative/Plan: Atrial male with history of biceps is abuse including injection drug use presents to our facility not feeling well with fever fatigue and malaise. Was recently at the outside hospital was for evidence of MSSA bacteremia with Streptococcus pyogenes bacteremia. He was treated with intravenous antibiotic therapy which was D escalated to Ancef once cultures were resulted. Patient was being evaluated for utilization of once weekly intravenous antibiotic therapy that could be administered in the outpatient setting. However he left AMA and was placed only on oral cephalexin at discharge. No present still not feeling well. Routine echocardiogram peña reveal evidence of endocarditis he is contemplated. However appears to patient is extremely unhappy at this time not clear that he will be staying. If he does state we'll work toward once weekly intravenous antibiotic therapy in the outpatient setting. Status: Acute Code(s): R78.81 - BACTEREMIA SNOMED Code(s): 795275231 (4) Sepsis due to Streptococcus pyogenes Status: Acute Code(s): A40.0 - SEPSIS DUE TO STREPTOCOCCUS, GROUP A SNOMED Code(s): 959796821
--- NOTE | 2019-04-05 09:07 | CDI ---
Documentation Clarification Form Date: 04/05/2019 8:50:29 AM From: Simin Coelho Phone: If you have a question about this query, please contact Mary Alice Graves, Reciprocating Drill Operator at [phone] between 8am and 5pm. Admit Date: 04/04/2019 11:15:00 AM Patient Name: Wilbert Rosenthal Visit Number: [id number] Discharge Date: 04/04/2019 3:05:00 PM ATTENTION: The Clinical Documentation Specialists (CDI) and [facility] Coding Staff appreciate your assistance in clarifying documentation. Please respond to the clarification below the line at the bottom and electronically sign. The CDI & [facility] Coding staff will review the response and follow-up if needed. Please note: Queries are made part of the Legal Health Record. If you have any questions, please contact the author of this message via ITS. Dr. Praveen Cardozo not in system: The patient presented with blood cultures positive for Strep A and MSSA. ID consult documents Sepsis with strep pyogenes. Please clarify of patient had sepsis. History/Risk Factors: IV drug user, homeless, chr hep. C, Clinical Indicators: postive blood cultures WBC 5.9 Lactic acid: 1.7 Blood cultures: Strep A and MSSA Vitals signs on admission: 98.1 F, 76, 22, 128/84, 98 RA Treatment: IV ABX ID Consult: documents sepsis with strep pyogenes Antibiotics: Vanco and Unasyn In your professional opinion, please clarify if these findings signify one of the following conditions, whether the condition is POA, and cause, if known: Condition Sepsis ruled out SIRS, without underlying infectious process Sepsis Severe Sepsis Septic Shock Other, please specify Unable to determine SIRS Criteria (2 or more of the following may indicate SIRS): -Temperature < 96.8F (36C) or > 101.0F (38.3C) -Heart Rate > 90 bpm -Respiratory Rate > 20 breaths/min or PaCO2 < 32 mmHg -White Blood Cell Count > 12,000 or < 4,000 cells/mm3 or > 10% bands -Lactate >2.0 mmol/L (>4.0 is equivalent to septic shock) sepsis ruled out MTDD
== END 2019-04-04 15:05 | disposition home or self-care (01) | DRG 872 ==
LOC: EC 11:13 → 4MS4W 13:54 → 3NMEDONC 18:05 → OBSVTOIN 04-04 11:15
PROVIDERS: ADMIT Family Medicine; ATTEND Family Medicine
DX: R78.81 Bacteremia (principal); I31.3 Pericardial effusion (noninflammatory); I38 Endocarditis, valve unspecified; B18.2 Chronic viral hepatitis C; B95.61 Methicillin susceptible Staphylococcus aureus infection as the cause of diseases classified elsewhere; F11.10 Opioid abuse, uncomplicated; F17.210 Nicotine dependence, cigarettes, uncomplicated; F32.9 Major depressive disorder, single episode, unspecified; F41.9 Anxiety disorder, unspecified; F90.9 Attention-deficit hyperactivity disorder, unspecified type; I10 Essential (primary) hypertension; K21.9 Gastro-esophageal reflux disease without esophagitis; Z79.899 Other long term (current) drug therapy; Z82.49 Family history of ischemic heart disease and other diseases of the circulatory system; Z82.61 Family history of arthritis; I25.10 Atherosclerotic heart disease of native coronary artery without angina pectoris; M54.9 Dorsalgia, unspecified; F15.10 Other stimulant abuse, uncomplicated; Z59.0 Homelessness; B95.5 Unspecified streptococcus as the cause of diseases classified elsewhere
CPT/HCPCS: 36415; 71046; 80053; 81003; 82553; 83605; 84484; 85025; 87040; 87086; 87502; 93306; 96365; 96367; 99285

== ENCOUNTER 2019-06-21 14:18 | Emergency (ER) | payer OTHER ==
[2019-06-21 14:29] VITALS: RESP 16
--- NOTE | 2019-06-21 14:46 | ED ---
Overdose HPI - General Chief Complaint: Overdose Stated Complaint: Overdose Time Seen by Provider: 06/21/19 14:30 Source: patient Mode of arrival: ambulatory Limitations: no limitations - History of Present Illness Initial Comments: Patient complains of possible overdose. He was not trying to harm himself. He states that he was drinking and getting high. He states he was only trying to get high. He denies any belly or back or chest pain. He does have a history of hepatitis. He has no nausea or vomiting. He has no dizziness. He has no weakness. Nothing makes his symptoms better or worse. He feels drowsy. - Related Data Home Medications Medication Instructions Recorded Confirmed Divalproex ER [Depakote ER] 500 mg PO HS 03/17/19 06/21/19 QUEtiapine [SEROquel] 100 mg PO HS 06/21/19 06/21/19 Previous Rx's Medication Instructions Recorded hydrOXYzine PAMOATE [Vistaril] 50 mg PO Q8HR PRN 30 Days #90 cap 02/19/19 Allergies Allergy/AdvReac Type Severity Reaction Status Date / Time No Known Allergies Allergy Verified 06/21/19 15:49 Review of Systems ROS Statement: Those systems with pertinent positive or pertinent negative responses have been documented in the HPI. ROS Other: All systems not noted in ROS Statement are negative. Past Medical History Past Medical History: Coronary Artery Disease (CAD), GERD/Reflux, Hypertension Additional Past Medical History / Comment(s): Hepatitis C, DDD, back pain, bilateral carpel tunnel syndrome. History of Any Multi-Drug Resistant Organisms: None Reported MDRO Source:: unknown Past Surgical History: No Surgical Hx Reported Additional Past Anesthesia/Blood Transfusion Reaction / Comment(s): Pt states he has never had surgery. Past Psychological History: Anxiety, Depression Smoking Status: Current every day smoker Past Alcohol Use History: Occasional Past Drug Use History: Marijuana - Past Family History Father Family Medical History: Coronary Artery Disease (CAD) Additional Family Medical History / Comment(s): Father is . Mother Family Medical History: Rheumatoid Arthritis (RA) Additional Family Medical History / Comment(s): Mother is . General Exam Limitations: no limitations General appearance: alert, in no apparent distress Head exam: Present: atraumatic, normocephalic, normal inspection Eye exam: Present: normal appearance, PERRL, EOMI. Absent: scleral icterus, conjunctival injection, periorbital swelling ENT exam: Present: normal exam, mucous membranes moist Neck exam: Present: normal inspection. Absent: tenderness, meningismus, lymphadenopathy Respiratory exam: Present: normal lung sounds bilaterally. Absent: respiratory distress, wheezes, rales, rhonchi, stridor Cardiovascular Exam: Present: regular rate, normal rhythm, normal heart sounds. Absent: systolic murmur, diastolic murmur, rubs, gallop, clicks GI/Abdominal exam: Present: soft, normal bowel sounds. Absent: distended, tenderness, guarding, rebound, rigid Extremities exam: Present: normal inspection, full ROM, normal capillary refill. Absent: tenderness, pedal edema, joint swelling, calf tenderness Back exam: Present: normal inspection Neurological exam: Present: alert, oriented X3, CN II-XII intact Psychiatric exam: Present: normal affect, normal mood Skin exam: Present: warm, dry, intact, normal color. Absent: rash Course Vital Signs 06/21/19 06/21/19 06/21/19 14:24 14:51 14:55 Temperature 98.3 F 98.8 F Pulse Rate 91 84 Pulse Rate [ 90 Laundry Aide ] Respiratory 16 16 Rate Blood Pressure 76/48 93/62 O2 Sat by Pulse 95 96 Oximetry Medical Decision Making - Medical Decision Making Patient is reevaluated by myself. He feels better. His symptoms have resolved. He does not require admission to the hospital. He is tolerating oral intake. He would like to go home. He will follow-up with his doctor. - Lab Data Result diagrams: 06/21/19 16:23 06/21/19 14:47 Lab Results 06/21/19 06/21/19 06/21/19 Range/Units 14:47 14:47 14:47 WBC 6.5 (3.8-10.6) k/uL RBC 4.26 L (4.30-5.90) m/uL Hgb 12.3 L (13.0-17.5) gm/dL Hct 36.0 L (39.0-53.0) % MCV 84.5 (80.0-100.0) fL MCH 28.8 (25.0-35.0) pg MCHC 34.1 (31.0-37.0) g/dL RDW 15.3 (11.5-15.5) % Plt Count 28 L (150-450) k/uL Sodium 141 (137-145) mmol/L Potassium 4.7 (3.5-5.1) mmol/L Chloride 109 H (98-107) mmol/L Carbon Dioxide 23 (22-30) mmol/L Anion Gap 9 mmol/L BUN 12 (9-20) mg/dL Creatinine 0.85 (0.66-1.25) mg/dL Est GFR (CKD-EPI)AfAm >90 (>60 ml/min/1.73 sqM) Est GFR (CKD-EPI)NonAf >90 (>60 ml/min/1.73 sqM) Glucose 104 H (74-99) mg/dL Calcium 9.0 (8.4-10.2) mg/dL Total Bilirubin 0.3 (0.2-1.3) mg/dL AST 67 H (17-59) U/L ALT 92 H (21-72) U/L Alkaline Phosphatase 30 L (38-126) U/L Total Protein 8.1 (6.3-8.2) g/dL Albumin 4.4 (3.5-5.0) g/dL Salicylates <1.0 mg/dL Urine Opiates Screen Not Detected (NotDetected) Ur Oxycodone Screen Not Detected (NotDetected) Urine Methadone Screen Not Detected (NotDetected) Ur Propoxyphene Screen Not Detected (NotDetected) Acetaminophen <10.0 ug/mL Ur Barbiturates Screen Not Detected (NotDetected) U Tricyclic Antidepress Not Detected (NotDetected) Ur Phencyclidine Scrn Not Detected (NotDetected) Ur Amphetamines Screen Not Detected (NotDetected) U Methamphetamines Scrn Not Detected (NotDetected) U Benzodiazepines Scrn Not Detected (NotDetected) Urine Cocaine Screen Not Detected (NotDetected) U Marijuana (THC) Screen Not Detected (NotDetected) Serum Alcohol 88 mg/dL 06/21/19 Range/Units 16:23 WBC 8.2 (3.8-10.6) k/uL RBC 4.43 (4.30-5.90) m/uL Hgb 12.7 L (13.0-17.5) gm/dL Hct 37.3 L (39.0-53.0) % MCV 84.2 (80.0-100.0) fL MCH 28.6 (25.0-35.0) pg MCHC 34.0 (31.0-37.0) g/dL RDW 14.6 (11.5-15.5) % Plt Count (150-450) k/uL Sodium (137-145) mmol/L Potassium (3.5-5.1) mmol/L Chloride (98-107) mmol/L Carbon Dioxide (22-30) mmol/L Anion Gap mmol/L BUN (9-20) mg/dL Creatinine (0.66-1.25) mg/dL Est GFR (CKD-EPI)AfAm (>60 ml/min/1.73 sqM) Est GFR (CKD-EPI)NonAf (>60 ml/min/1.73 sqM) Glucose (74-99) mg/dL Calcium (8.4-10.2) mg/dL Total Bilirubin (0.2-1.3) mg/dL AST (17-59) U/L ALT (21-72) U/L Alkaline Phosphatase (38-126) U/L Total Protein (6.3-8.2) g/dL Albumin (3.5-5.0) g/dL Salicylates mg/dL Urine Opiates Screen (NotDetected) Ur Oxycodone Screen (NotDetected) Urine Methadone Screen (NotDetected) Ur Propoxyphene Screen (NotDetected) Acetaminophen ug/mL Ur Barbiturates Screen (NotDetected) U Tricyclic Antidepress (NotDetected) Ur Phencyclidine Scrn (NotDetected) Ur Amphetamines Screen (NotDetected) U Methamphetamines Scrn (NotDetected) U Benzodiazepines Scrn (NotDetected) Urine Cocaine Screen (NotDetected) U Marijuana (THC) Screen (NotDetected) Serum Alcohol mg/dL 06/21/19 17:14 Twelve-lead EKG shows ventricular rate 85 bpm, normal CT interval Mykel, looks is, no ST elevation or depression, interpreted by me as normal sinus rhythm. Disposition Clinical Impression: Accidental drug ingestion Disposition: HOME SELF-CARE Condition: Good Instructions (If sedation given, give patient instructions): Adult Overdose (ED) Is patient prescribed a controlled substance at d/c from ED?: No Referrals: None,Stated [Primary Care Provider] - 1-2 days
[2019-06-21 14:53] VITALS: TEMP 98.8
[2019-06-21 15:16] LABS: ALT 92 U/L (21-72); AST 67 U/L (17-59); Acetaminophen <10.0 ug/mL; African American GFR (CKD) >90 (>60 ml/min/1.73 sqM); Albumin 4.4 g/dL (3.5-5.0); Alkaline Phosphatase 30 U/L (38-126); Anion Gap 9 mmol/L; Blood Urea Nitrogen 12 mg/dL (9-20); Carbon Dioxide 23 mmol/L (22-30); Chloride 109 mmol/L (98-107); Glucose 104 mg/dL (74-99); Salicylate <1.0 mg/dL; Sodium 141 mmol/L (137-145); Total Bilirubin 0.3 mg/dL (0.2-1.3); Total Protein 8.1 g/dL (6.3-8.2)
--- NOTE | 2019-06-21 15:16 | XR ---
EXAMINATION TYPE: XR chest 1V portable DATE OF EXAM: 06/21/2019 COMPARISON: 04/03/2019 HISTORY: Shortness of breath TECHNIQUE: Single frontal view of the chest is obtained. FINDINGS: There is no focal air space opacity, pleural effusion, or pneumothorax seen. The cardiac silhouette size is within normal limits. The osseous structures are intact. IMPRESSION: No acute process.
[2019-06-21 15:17] LABS: Amphetamine Screen,Urine Not Detected (NotDetected); Barbiturate Screen,Urine Not Detected (NotDetected); Benzodiazepines Screen,Urine Not Detected (NotDetected); Cocaine Screen,Urine Not Detected (NotDetected); Methadone Screen, Urine Not Detected (NotDetected); Opiate Screen,Urine Not Detected (NotDetected); Oxycodone Screen, Urine Not Detected (NotDetected); Phencyclidine Screen,Urine Not Detected (NotDetected); Potassium 4.7 mmol/L (3.5-5.1); Tricyclic Antidepressant,Urine Not Detected (NotDetected); Urn Cannabinoid Scrn Not Detected (NotDetected)
[2019-06-21 15:19] LABS: Alcohol 88 mg/dL
[2019-06-21 15:24] LABS: HGB 12.3 gm/dL (13.0-17.5); MCH 28.8 pg (25.0-35.0); MCHC 34.1 g/dL (31.0-37.0); MCV 84.5 fL (80.0-100.0); Mean Platelet Volume 10.6; RBC 4.26 m/uL (4.30-5.90); RDW 15.3 % (11.5-15.5); WBC 6.5 k/uL (3.8-10.6)
[2019-06-21 15:25] LABS: Platelet Count 28 k/uL (150-450)
[2019-06-21 16:31] LABS: HCT 37.3 % (39.0-53.0); HGB 12.7 gm/dL (13.0-17.5); MCH 28.6 pg (25.0-35.0); MCV 84.2 fL (80.0-100.0); Mean Platelet Volume 11.2; RBC 4.43 m/uL (4.30-5.90); RDW 14.6 % (11.5-15.5); WBC 8.2 k/uL (3.8-10.6)
[2019-06-21 17:13] LABS: Band Neutrophils % 1 %; Lymphocytes # (M) 2.71 k/uL (1.0-4.8); Monocytes # (M) 0.49 k/uL (0-1.0); Neutrophils % (M) 60 %; Nucleated Red Blood Cells 0 /100 WBC (0-0); Total Cells Counted 100
[2019-06-21 17:19] LABS: Toxic Granulation Present; Toxic Vacuolation Present
[2019-06-21 17:21] VITALS: BP 105/82; PULSE 82
== END 2019-06-21 17:24 | disposition home or self-care (01) ==
LOC: EC 14:18
DX: T43.591A Poisoning by other antipsychotics and neuroleptics, accidental (unintentional), initial encounter (principal); T39.1X1A Poisoning by 4-Aminophenol derivatives, accidental (unintentional), initial encounter; T40.2X1A Poisoning by other opioids, accidental (unintentional), initial encounter; F32.9 Major depressive disorder, single episode, unspecified; F41.9 Anxiety disorder, unspecified; F17.200 Nicotine dependence, unspecified, uncomplicated; Z79.899 Other long term (current) drug therapy
CPT/HCPCS: 82075; 36415; 93005; 80053; 85025; 80306; 83520; 71045; 99285; G0480 ×2; 80320; 80329

== ENCOUNTER 2019-09-30 22:07 | Inpatient (IN) | payer OTHER ==
[2019-09-30] MEDS ORDERED: SODIUM CHLORIDE 0.9% 1,000 ML IV STA ×3 (22:49→23:51)
[2019-09-30] MEDS ORDERED: LORazepam 2 MG/ML INJ IV STA (22:49)
[2019-09-30] MEDS ORDERED: KETOROLAC 30 MG/ML 1 ML VIAL IVP STA (22:50)
--- NOTE | 2019-09-30 22:53 | ED ---
Overdose HPI - General Source: patient, family Mode of arrival: wheelchair Limitations: no limitations - History of Present Illness MD Complaint: intentional overdose -: days(s) Intent: unwilling to say How Overdose Was Discovered: called family/friend, family/friend present at time Context: Intentional Overdose: work problems, drug/ETOH problems Context: Accidental Overdose: wanted to get high, uncertain what happened Associated Symptoms: depression Treatments Prior to Arrival: none <Rony Moran - Last Filed: 10/01/19 18:01> <Juan Miguel Medellin - Last Filed: 10/02/19 08:05> - General Chief Complaint: Recheck/Abnormal Lab/Rx Stated Complaint: Poss overdose, back pain Time Seen by Provider: 09/30/19 22:12 - History of Present Illness Initial Comments: This is a 33-year-old male the ER for evaluation patient resents today for evaluation regards to fall. Patient had troponin fall on the snow today. He denies alcohol intoxication or drug abuse. He has evasive psychiatric illness friend thinks he may have overdosed on medications. Patient is mildly altered currently, cold, not feeling well does complain of back pain currently. Patient does admit to being homeless and admits to pain with ambulation (Rony Moran) - Related Data Home Medications Medication Instructions Recorded Confirmed QUEtiapine [SEROquel] 100 mg PO BID 06/21/19 10/01/19 Haloperidol [Haldol] 5 mg PO BID 09/30/19 10/01/19 clonazePAM [KlonoPIN] 1 mg PO BID 09/30/19 10/01/19 Cyclobenzaprine [Flexeril] 5 mg PO Q8H PRN 10/01/19 10/01/19 Divalproex [Depakote] 250 mg PO TID 10/01/19 10/01/19 QUEtiapine FUMARATE [SEROquel] 300 mg PO HS 10/01/19 10/01/19 buPROPion XL [Wellbutrin Xl] 150 mg PO BID 10/01/19 10/01/19 Allergies Allergy/AdvReac Type Severity Reaction Status Date / Time No Known Allergies Allergy Verified 09/30/19 23:33 Review of Systems ROS Other: All systems not noted in ROS Statement are negative. <Rony Moran - Last Filed: 10/01/19 18:01> ROS Other: All systems not noted in ROS Statement are negative. <Juan Miguel Medellin - Last Filed: 10/02/19 08:05> ROS Statement: Those systems with pertinent positive or pertinent negative responses have been documented in the HPI. Past Medical History Past Medical History: Coronary Artery Disease (CAD), GERD/Reflux, Hypertension Additional Past Medical History / Comment(s): Hepatitis C, DDD, back pain, bilateral carpel tunnel syndrome. History of Any Multi-Drug Resistant Organisms: None Reported MDRO Source:: unknown Past Surgical History: No Surgical Hx Reported Additional Past Anesthesia/Blood Transfusion Reaction / Comment(s): Pt states he has never had surgery. Past Psychological History: Anxiety, Depression Smoking Status: Current every day smoker Past Alcohol Use History: Occasional Past Drug Use History: Marijuana - Past Family History Father Family Medical History: Coronary Artery Disease (CAD) Additional Family Medical History / Comment(s): Father is . Mother Family Medical History: Rheumatoid Arthritis (RA) Additional Family Medical History / Comment(s): Mother is . <Rony Moran Christina - Last Filed: 10/01/19 18:01> General Exam Limitations: no limitations General appearance: alert, in no apparent distress, appears intoxicated, anxious Head exam: Present: atraumatic, normocephalic, normal inspection Eye exam: Present: normal appearance, PERRL, EOMI. Absent: scleral icterus, conjunctival injection, periorbital swelling ENT exam: Present: normal exam, mucous membranes moist Neck exam: Present: normal inspection. Absent: tenderness, meningismus, lymphadenopathy Respiratory exam: Present: normal lung sounds bilaterally. Absent: respiratory distress, wheezes, rales, rhonchi, stridor Cardiovascular Exam: Present: regular rate, normal rhythm, normal heart sounds. Absent: systolic murmur, diastolic murmur, rubs, gallop, clicks GI/Abdominal exam: Present: soft, normal bowel sounds. Absent: distended, tenderness, guarding, rebound, rigid Extremities exam: Present: normal inspection, full ROM, normal capillary refill. Absent: tenderness, pedal edema, joint swelling, calf tenderness Back exam: Present: normal inspection Neurological exam: Present: alert, oriented X3, CN II-XII intact Psychiatric exam: Present: normal affect, normal mood Skin exam: Present: warm, dry, intact, normal color. Absent: rash <Rony Moran - Last Filed: 10/01/19 18:01> Course <Rony Moran - Last Filed: 10/01/19 18:01> Vital Signs 09/30/19 09/30/19 10/01/19 22:15 23:31 01:32 Temperature 98.0 F 97.5 F L Pulse Rate 106 H 73 72 Respiratory 22 16 19 Rate Blood Pressure 134/66 138/83 129/73 O2 Sat by Pulse 98 98 98 Oximetry 10/01/19 10/01/19 10/01/19 03:05 04:00 04:58 Temperature Pulse Rate 63 80 67 Respiratory 18 18 17 Rate Blood Pressure 112/53 114/66 121/80 O2 Sat by Pulse 97 98 99 Oximetry 10/01/19 10/01/19 10/01/19 05:59 06:23 08:16 Temperature 97.7 F Pulse Rate 77 60 56 L Respiratory 17 17 18 Rate Blood Pressure 139/89 128/61 127/86 O2 Sat by Pulse 99 98 98 Oximetry - Reevaluation(s) Reevaluation #1: 10/01/19 00:12 Medical records reviewed (Rony Moran) Reevaluation #2: 10/01/19 00:12 Given significant amount of fluid secondary to elevated CK, trembling secondary to hypothermia (Rony Moran) Reevaluation #3: 10/01/19 00:12 Patient is feeling improved (Rony Moran) Medical Decision Making - Lab Data Result diagrams: 09/30/19 23:02 09/30/19 23:02 - Radiology Data Radiology results: report reviewed (Chest pelvis and lumbar spine x-ray negative for traumatic injury), image reviewed <Rony Moran - Last Filed: 10/01/19 18:01> - Lab Data Result diagrams: 09/30/19 23:02 09/30/19 23:02 <Juan Miguel Medellin - Last Filed: 10/02/19 08:05> - Medical Decision Making 33 male the emergency department for altered mental status, no real significant improvement mild rhabdomyolysis was found outside hypothermic, patient did improve temperature fluid hydration here in the ER. But certainly altered will admit for continued treatment and monitoring (Rony Moran) - Lab Data Lab Results 09/30/19 09/30/19 09/30/19 Range/Units 23:02 23:02 23:44 WBC 11.9 H (3.8-10.6) k/uL RBC 4.33 (4.30-5.90) m/uL Hgb 13.2 (13.0-17.5) gm/dL Hct 38.9 L (39.0-53.0) % MCV 89.8 (80.0-100.0) fL MCH 30.4 (25.0-35.0) pg MCHC 33.9 (31.0-37.0) g/dL RDW 12.8 (11.5-15.5) % Plt Count 295 (150-450) k/uL Neutrophils % 82 % Lymphocytes % 11 % Monocytes % 4 % Eosinophils % 1 % Basophils % 0 % Neutrophils # 9.8 H (1.3-7.7) k/uL Lymphocytes # 1.3 (1.0-4.8) k/uL Monocytes # 0.5 (0-1.0) k/uL Eosinophils # 0.1 (0-0.7) k/uL Basophils # 0.0 (0-0.2) k/uL Sodium 141 (137-145) mmol/L Potassium 3.8 (3.5-5.1) mmol/L Chloride 112 H (98-107) mmol/L Carbon Dioxide 22 (22-30) mmol/L Anion Gap 7 mmol/L BUN 13 (9-20) mg/dL Creatinine 0.95 (0.66-1.25) mg/dL Est GFR (CKD-EPI)AfAm >90 (>60 ml/min/1.73 sqM) Est GFR (CKD-EPI)NonAf >90 (>60 ml/min/1.73 sqM) Glucose 101 H (74-99) mg/dL Plasma Lactic Acid Sohail (0.7-2.0) mmol/L Calcium 9.7 (8.4-10.2) mg/dL Phosphorus 3.2 (2.5-4.5) mg/dL Magnesium 2.2 (1.6-2.3) mg/dL Total Bilirubin 0.5 (0.2-1.3) mg/dL AST 326 H (17-59) U/L ALT 522 H (21-72) U/L Alkaline Phosphatase 53 (38-126) U/L Ammonia (<30) umol/L Creatine Kinase 1035 H* (55-170) U/L Total Protein 8.0 (6.3-8.2) g/dL Albumin 4.0 (3.5-5.0) g/dL Lipase 54 (23-300) U/L Urine Color Yellow Urine Appearance Cloudy (Clear) Urine pH 6.0 (5.0-8.0) Ur Specific [place] 1.025 (1.001-1.035) Urine Protein 1+ H (Negative) Urine Glucose (UA) Negative (Negative) Urine Ketones Trace H (Negative) Urine Blood Negative (Negative) Urine Nitrite Negative (Negative) Urine Bilirubin Negative (Negative) Urine Urobilinogen 2.0 (<2.0) mg/dL Ur Leukocyte Esterase Negative (Negative) Urine RBC 1 (0-5) /hpf Urine WBC 4 (0-5) /hpf Ur Squamous Epith Cells <1 (0-4) /hpf Hyaline Casts 19 H (0-2) /lpf Urine Mucus Moderate H (None) /hpf Salicylates <1.0 mg/dL Urine Opiates Screen Not Detected (NotDetected) Ur Oxycodone Screen Not Detected (NotDetected) Urine Methadone Screen Not Detected (NotDetected) Ur Propoxyphene Screen Not Detected (NotDetected) Acetaminophen <10.0 ug/mL Ur Barbiturates Screen Not Detected (NotDetected) U Tricyclic Antidepress Not Detected (NotDetected) Ur Phencyclidine Scrn Not Detected (NotDetected) Ur Amphetamines Screen Not Detected (NotDetected) U Methamphetamines Scrn Detected H (NotDetected) U Benzodiazepines Scrn Not Detected (NotDetected) Urine Cocaine Screen Not Detected (NotDetected) U Marijuana (THC) Screen Detected H (NotDetected) Serum Alcohol <10 mg/dL Hep Bs Antigen (Non-Reactive) Hep B Core IgM Ab (Non-Reactive) Hep C IgG Ab (Non-Reactive) 10/01/19 10/01/19 10/01/19 Range/Units 00:40 00:40 00:40 WBC (3.8-10.6) k/uL RBC (4.30-5.90) m/uL Hgb (13.0-17.5) gm/dL Hct (39.0-53.0) % MCV (80.0-100.0) fL MCH (25.0-35.0) pg MCHC (31.0-37.0) g/dL RDW (11.5-15.5) % Plt Count (150-450) k/uL Neutrophils % % Lymphocytes % % Monocytes % % Eosinophils % % Basophils % % Neutrophils # (1.3-7.7) k/uL Lymphocytes # (1.0-4.8) k/uL Monocytes # (0-1.0) k/uL Eosinophils # (0-0.7) k/uL Basophils # (0-0.2) k/uL Sodium (137-145) mmol/L Potassium (3.5-5.1) mmol/L Chloride (98-107) mmol/L Carbon Dioxide (22-30) mmol/L Anion Gap mmol/L BUN (9-20) mg/dL Creatinine (0.66-1.25) mg/dL Est GFR (CKD-EPI)AfAm (>60 ml/min/1.73 sqM) Est GFR (CKD-EPI)NonAf (>60 ml/min/1.73 sqM) Glucose (74-99) mg/dL Plasma Lactic Acid Sohail 1.0 (0.7-2.0) mmol/L Calcium (8.4-10.2) mg/dL Phosphorus (2.5-4.5) mg/dL Magnesium (1.6-2.3) mg/dL Total Bilirubin (0.2-1.3) mg/dL AST (17-59) U/L ALT (21-72) U/L Alkaline Phosphatase (38-126) U/L Ammonia 9 (<30) umol/L Creatine Kinase 1399 H* (55-170) U/L Total Protein (6.3-8.2) g/dL Albumin (3.5-5.0) g/dL Lipase (23-300) U/L Urine Color Urine Appearance (Clear) Urine pH (5.0-8.0) Ur Specific [place] (1.001-1.035) Urine Protein (Negative) Urine Glucose (UA) (Negative) Urine Ketones (Negative) Urine Blood (Negative) Urine Nitrite (Negative) Urine Bilirubin (Negative) Urine Urobilinogen (<2.0) mg/dL Ur Leukocyte Esterase (Negative) Urine RBC (0-5) /hpf Urine WBC (0-5) /hpf Ur Squamous Epith Cells (0-4) /hpf Hyaline Casts (0-2) /lpf Urine Mucus (None) /hpf Salicylates mg/dL Urine Opiates Screen (NotDetected) Ur Oxycodone Screen (NotDetected) Urine Methadone Screen (NotDetected) Ur Propoxyphene Screen (NotDetected) Acetaminophen ug/mL Ur Barbiturates Screen (NotDetected) U Tricyclic Antidepress (NotDetected) Ur Phencyclidine Scrn (NotDetected) Ur Amphetamines Screen (NotDetected) U Methamphetamines Scrn (NotDetected) U Benzodiazepines Scrn (NotDetected) Urine Cocaine Screen (NotDetected) U Marijuana (THC) Screen (NotDetected) Serum Alcohol mg/dL Hep Bs Antigen Non-Reactive (Non-Reactive) Hep B Core IgM Ab Non-Reactive (Non-Reactive) Hep C IgG Ab Reactive H (Non-Reactive) Disposition Is patient prescribed a controlled substance at d/c from ED?: No <Rony Moran - Last Filed: 10/01/19 18:01> Is patient prescribed a controlled substance at d/c from ED?: No <Juan Miguel Medellin - Last Filed: 10/02/19 08:05> Clinical Impression: Polysubstance abuse, Acute psychosis, Depression, Substance abuse, Fall, Transaminitis, Rhabdomyolysis, Hypothermia Disposition: ADMITTED IP TO THIS HOSP Condition: Fair
[2019-09-30 23:26] LABS: Basophils % (A) 0 %; Eosinophils # (A) 0.1 k/uL (0-0.7); Eosinophils % (A) 1 %; HCT 38.9 % (39.0-53.0); HGB 13.2 gm/dL (13.0-17.5); Lymphocytes # (A) 1.3 k/uL (1.0-4.8); Lymphocytes % (A) 11 %; MCH 30.4 pg (25.0-35.0); MCHC 33.9 g/dL (31.0-37.0); MCV 89.8 fL (80.0-100.0); Mean Platelet Volume 6.7; Monocytes # (A) 0.5 k/uL (0-1.0); Monocytes % (A) 4 %; Neutrophils # (A) 9.8 k/uL (1.3-7.7); Neutrophils % (A) 82 %; Platelet Count 295 k/uL (150-450); RBC 4.33 m/uL (4.30-5.90); RDW 12.8 % (11.5-15.5); WBC 11.9 k/uL (3.8-10.6)
[2019-09-30 23:34] LABS: ALT 522 U/L (21-72); AST 326 U/L (17-59); Acetaminophen <10.0 ug/mL; African American GFR (CKD) >90 (>60 ml/min/1.73 sqM); Alcohol <10 mg/dL; Alkaline Phosphatase 53 U/L (38-126); Anion Gap 7 mmol/L; Blood Urea Nitrogen 13 mg/dL (9-20); Calcium 9.7 mg/dL (8.4-10.2); Carbon Dioxide 22 mmol/L (22-30); Chloride 112 mmol/L (98-107); Glucose 101 mg/dL (74-99); Magnesium 2.2 mg/dL (1.6-2.3); Phosphorus 3.2 mg/dL (2.5-4.5); Potassium 3.8 mmol/L (3.5-5.1); Salicylate <1.0 mg/dL; Sodium 141 mmol/L (137-145); Total Bilirubin 0.5 mg/dL (0.2-1.3)
[2019-09-30 23:43] LABS: Creatine Kinase 1035 U/L (55-170)
[2019-09-30 23:58] LABS: Appearance,Urine Cloudy (Clear); Bilirubin,Urine Negative (Negative); Blood,Urine Negative (Negative); Color,Urine Yellow; Glucose,Urine (UA) Negative (Negative); Hyaline Casts,Urine 19 /lpf (0-2); Ketones,Urine Trace (Negative); Leukocyte Esterase,Urine Negative (Negative); Mucus,Urine Moderate /hpf; Nitrite,Urine Negative (Negative); Protein,Urine 1+ (Negative); RBC,Urine 1 /hpf (0-5); Specific Gravity,Urine 1.025 (1.001-1.035); Squamous Epithelial Cell,Urine <1 /hpf (0-4); WBC,Urine 4 /hpf (0-5)
[2019-10-01 00:08] LABS: Amphetamine Screen,Urine Not Detected (NotDetected); Barbiturate Screen,Urine Not Detected (NotDetected); Benzodiazepines Screen,Urine Not Detected (NotDetected); Cocaine Screen,Urine Not Detected (NotDetected); Methadone Screen, Urine Not Detected (NotDetected); Opiate Screen,Urine Not Detected (NotDetected); Oxycodone Screen, Urine Not Detected (NotDetected); Phencyclidine Screen,Urine Not Detected (NotDetected); Tricyclic Antidepressant,Urine Not Detected (NotDetected); Urn Cannabinoid Scrn Detected (NotDetected)
--- NOTE | 2019-10-01 00:46 | XR ---
EXAMINATION TYPE: XR pelvis AP view DATE OF EXAM: 10/01/2019 COMPARISON: NONE HISTORY: Fall. Pain. TECHNIQUE: Single view FINDINGS: Pelvic ring is intact. There is minor spurring of the femoral heads. I see no fracture nor dislocation. Sacroiliac joints appear intact. IMPRESSION: There is some early osteoarthritis in the hip joints. No fracture seen.
--- NOTE | 2019-10-01 00:47 | XR ---
EXAMINATION TYPE: XR lumbar spine 2 or 3V DATE OF EXAM: 10/01/2019 COMPARISON: NONE HISTORY: Fall. Back pain. TECHNIQUE: 3 views FINDINGS: Lumbar vertebra have normal alignment. Posterior elements are intact. There is no compressi on fracture. Sacroiliac joints appear intact. IMPRESSION: Negative lumbar spine exam.
--- NOTE | 2019-10-01 00:48 | XR ---
EXAMINATION TYPE: XR chest 1V DATE OF EXAM: 10/01/2019 COMPARISON: June 21, 2019 HISTORY: Fall. Possible overdose. TECHNIQUE: Single frontal view of the chest is obtained. FINDINGS: Heart and mediastinum are normal. Lungs are clear. Diaphragm is normal. Bony thorax appear s normal. IMPRESSION: Normal chest. No change.
[2019-10-01] MEDS ORDERED: NALOXONE 0.4 MG/ML 1 ML VIAL IV PRN (07:07)
[2019-10-01] MEDS: SODIUM CHLORIDE 0.9% 1,000 ML IV SCH ×2 (08:07→20:13)
[2019-10-01 08:13] LABS: Hepatitis A Antibody IgM NEGATIVE
[2019-10-01] MEDS ORDERED: PNEUMOCOCCAL VACC-PNEUMOVAX 23 25 MCG/0.5 ML VIAL IM ONE (09:29)
[2019-10-01] MEDS: KETOROLAC 30 MG/ML 1 ML VIAL IVP PRN ×2 (11:16→20:09)
[2019-10-01] MEDS: FAMOTIDINE 20 MG TAB PO SCH ×2 (11:17→20:08)
[2019-10-01 13:04] LABS: Hepatitis B Core IgM Non-Reactive (Non-Reactive); Hepatitis B Surface Antigen Non-Reactive (Non-Reactive); Hepatitis C IgG Antibody Reactive (Non-Reactive)
--- NOTE | 2019-10-01 13:51 | P.HPIM ---
History of Present Illness 31-year-old male was admitted the after a fall and found in the snow. 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 Patient is drowsy does have some altered mental status although oriented 3. Complaining of back pain. Lumbar spine x-ray and pelvic x-ray chest x-ray all of for blood within normal limits. Patient does have history of psychiatric issues for which patient is on Haldol and Seroquel apparently has not been taking these medications although patient does have extrapyramidal side effects including pill-rolling tremor and flat affect may be related to have several side effects from Haldol which as per the recommendation from psychiatry presently being held patient urine drug screen is also positive for marijuana, patient does have elevated liver enzymes can be chronic elevation patient does have positive hepatitis C patient does have elevated CK as well to 1399 Review of Systems REVIEW OF SYSTEMS: CONSTITUTIONAL: No fever, no malaise, no fatigue. HEENT: No recent visual problems or hearing problems. Denied any sore throat. CARDIOVASCULAR: No chest pain, orthopnea, PND, no palpitations, no syncope. PULMONARY: No shortness of breath, no cough, no hemoptysis. GASTROINTESTINAL: No diarrhea, no nausea, no vomiting, no abdominal pain. NEUROLOGICAL: No headaches, no weakness, no numbness. HEMATOLOGICAL: Denies any bleeding or petechiae. GENITOURINARY: Denies any burning micturition, frequency, or urgency. MUSCULOSKELETAL/RHEUMATOLOGICAL: Complaining of low back pain. ENDOCRINE: Denies any polyuria or polydipsia. The rest of the 14-point review of systems is negative. Past Medical History Past Medical History: Coronary Artery Disease (CAD), GERD/Reflux, Hypertension, Liver Disease Additional Past Medical History / Comment(s): Hepatitis C, DDD, chronic low back pain, bilateral carpel tunnel syndrome, pt states he was told he had heart disease when he was at [facility]. History of Any Multi-Drug Resistant Organisms: None Reported MDRO Source:: unknown Past Surgical History: No Surgical Hx Reported Past Anesthesia/Blood Transfusion Reactions: Unable to Obtain Additional Past Anesthesia/Blood Transfusion Reaction / Comment(s): Pt states he has never had surgery. Smoking Status: Current every day smoker - Past Family History Father Family Medical History: Coronary Artery Disease (CAD) Additional Family Medical History / Comment(s): Father is . Mother Family Medical History: Rheumatoid Arthritis (RA) Additional Family Medical History / Comment(s): Mother is . Medications and Allergies Home Medications Medication Instructions Recorded Confirmed Type QUEtiapine [SEROquel] 100 mg PO BID 06/21/19 10/01/19 History Haloperidol [Haldol] 5 mg PO BID 09/30/19 10/01/19 History clonazePAM [KlonoPIN] 1 mg PO BID 09/30/19 10/01/19 History Cyclobenzaprine [Flexeril] 5 mg PO Q8H PRN 10/01/19 10/01/19 History Divalproex [Depakote] 250 mg PO TID 10/01/19 10/01/19 History QUEtiapine FUMARATE [SEROquel] 300 mg PO HS 10/01/19 10/01/19 History buPROPion XL [Wellbutrin Xl] 150 mg PO BID 10/01/19 10/01/19 History Allergies Allergy/AdvReac Type Severity Reaction Status Date / Time No Known Allergies Allergy Verified 09/30/19 23:33 Physical Exam Vitals: Vital Signs Temp Pulse Resp BP Pulse Ox 10/01/19 08:16 56 L 18 127/86 98 10/01/19 06:23 97.7 F 60 17 128/61 98 10/01/19 05:59 77 17 139/89 99 10/01/19 04:58 67 17 121/80 99 10/01/19 04:00 80 18 114/66 98 10/01/19 03:05 63 18 112/53 97 10/01/19 01:32 97.5 F L 72 19 129/73 98 09/30/19 23:31 73 16 138/83 98 09/30/19 22:15 98.0 F 106 H 22 134/66 98 Intake and Output 09/30/19 10/01/19 10/01/19 22:59 06:59 14:59 Other: Weight 81.647 kg PHYSICAL EXAMINATION: GENERAL: The patient is drowsy and oriented x3, not in any acute distress. Well developed, well nourished. She does have tremor appears to be pill-rolling HEENT: Pupils are round and equally reacting to light. EOMI. No scleral icterus. No conjunctival pallor. Normocephalic, atraumatic. No pharyngeal erythema. No t hyromegaly. CARDIOVASCULAR: S1 and S2 present. No murmurs, rubs, or gallops. PULMONARY: Chest is clear to auscultation, no wheezing or crackles. ABDOMEN: Soft, nontender, nondistended, normoactive bowel sounds. No palpable organomegaly. MUSCULOSKELETAL: No joint swelling or deformity. EXTREMITIES: No cyanosis, clubbing, or pedal edema. NEUROLOGICAL: Gross neurological examination did not reveal any focal deficits. SKIN: No rashes. Results CBC & Chem 7: 09/30/19 23:02 09/30/19 23:02 Labs: Abnormal Lab Results - Last 24 Hours (Table) 09/30/19 09/30/19 09/30/19 Range/Units 23:02 23:02 23:44 WBC 11.9 H (3.8-10.6) k/uL Hct 38.9 L (39.0-53.0) % Neutrophils # 9.8 H (1.3-7.7) k/uL Chloride 112 H (98-107) mmol/L Glucose 101 H (74-99) mg/dL AST 326 H (17-59) U/L ALT 522 H (21-72) U/L Creatine Kinase 1035 H* (55-170) U/L Urine Protein 1+ H (Negative) Urine Ketones Trace H (Negative) Hyaline Casts 19 H (0-2) /lpf Urine Mucus Moderate H (None) /hpf U Methamphetamines Scrn Detected H (NotDetected) U Marijuana (THC) Screen Detected H (NotDetected) Hep C IgG Ab (Non-Reactive) 10/01/19 10/01/19 Range/Units 00:40 00:40 WBC (3.8-10.6) k/uL Hct (39.0-53.0) % Neutrophils # (1.3-7.7) k/uL Chloride (98-107) mmol/L Glucose (74-99) mg/dL AST (17-59) U/L ALT (21-72) U/L Creatine Kinase 1399 H* (55-170) U/L Urine Protein (Negative) Urine Ketones (Negative) Hyaline Casts (0-2) /lpf Urine Mucus (None) /hpf U Methamphetamines Scrn (NotDetected) U Marijuana (THC) Screen (NotDetected) Hep C IgG Ab Reactive H (Non-Reactive) Thrombosis Risk Factor Assmnt - Choose All That Apply Any of the Below Risk Factors Present?: Yes Each Factor Represents 1 point: Obesity (BMI >25) Other Risk Factors: No Other congenital or acquired thrombophilia - If yes, enter type in comment: No Thrombosis Risk Factor Assessment Total Risk Factor Score: 1 Thrombosis Risk Factor Assessment Level: Low Risk Assessment and Plan Plan: Altered mental status, toxic encephalopathy from a methamphetamine overdose and marijuana use: Patient will continued on IV fluids and supportive care. -Elevated liver enzymes probably from my chronic hepatitis C. We'll repeat liver enzymes make sure they're not going up ultrasound of the abdomen is not is a patient denied any abdominal pain -Back pain from his back injury from fall no evidence of fracture patient was started on symptomatic treatment with Toradol. -Elevated CK secondary to fall no evidence of a myoglobinuria, continue with IV fluids repeat CK tomorrow -Possible Lexapro no side effects from Haldol which is being held at this time psychiatric evaluated the patient. -Depression history of psychosis -History of marijuana use nicotine abuse: Counseling was provided patient uses methamphetamine IV use to use her groin in the past
--- NOTE | 2019-10-01 16:19 | P.CN ---
Psychiatric Consult - . Consult date: 10/01/19 Consult:: IDENTIFYING DATA: The patient is a 33-year-old male who is homeless. He presented to the emergency room on 09/30/2019 for an evaluation of a fall. He appeared confused in the emergency room and told the emergency room physician that she "may have overdosed on medications." HISTORY OF PRESENT ILLNESS: The patient was unable to give a clear history of his present illness. In general, he is a poor historian and quite vague about his history. He complained that he was "kicked out" of the rescue mission because "they thought I was using drugs." He denied the use of drugs and could not explain why his urine drug screen was positive for methamphetamine and marijuana. He has history of substance use problems and has been diagnosed with an opiate use disorder, marijuana use disorder and methamphetamine use disorder. She alleged that he is been abstinent from heroin since September 2018. He denied psychiatric symptoms such as depression, persistent and overwhelming anxiety, paranoia or disturbances of perception. During a prior hospitalization he maintained several paranoid delusional beliefs including that the government was reading his thoughts, that his brother had injected him with an old technology and that the government is trying to kill him. He specifically denied that he was experiencing these thoughts or beliefs. He denied experiencing auditory, visual or olfactory hallucinations. He denied ideas of reference, thought insertion or thought broadcasting. He denied recent mental health treatment. He denied that he is currently taking psychotropic medications. However the nurse found in his personal belongings prescriptions for clonazepam, bupropion, Seroquel, Haldol, Depakote and Flexeril. All the the bottles from full with the exception of Flexeril. He told the nurse that he had not been taking the Flexeril and could not explain the reason why the medicines were missing from the container. He alleged that he has been homeless for "about 1 year". He was residing at the [facility] for 2 weeks until he was asked to leave. Prior to the [facility] he was living at a skilled nursing in "[place]". PAST PSYCHIATRIC HISTORY: He had 2 psychiatric admissions to [facility] in 2018 for complaints of depression and suicidal ideation. His diagnoses were both admissions was bipolar disorder, opiate use disorder and cannabis use disorder. He can be admitted to admissions other facilities but did not know the name of the facility or when he had been admitted. He was unable to provide the name of his mental health agency or his treatment team. PAST MEDICAL HISTORY: He reported history of hepatitis C and "heart disease". According to medical record he has history of GERD, hypertension, hepatitis C, degenerative disc joint disease and carpal tunnel disease. ALLERGIES: NO KNOWN DRUG ALLERGIES. SUBSTANCE USE HISTORY: He has history of an opiate use disorder but alleged that he has been abstinent for 1 year (he told the nurse that he had not used heroin for 3 months). He admitted to having been in treatment programs but could not recall the name of the programs. According to the record he had one treatment episode at [facility]. FAMILY PSYCHIATRIC/SUBSTANCE USE HISTORY: He denied history of mental health or substance problems in his family however, the record indicates a family history depression, anxiety as well as substance use problems. SOCIAL HISTORY: He is homeless, unemployed and has no income. He's been living in shelters. He is after 3 years. He has no children. 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 According to record he was expelled from school in 11th grade but completed his GED. Both his parents are . Has one half-brother and 2 half-sisters.. MENTAL STATUS EXAM: He presented as a disheveled appearing 33-year-old male who was pleasant on approach. He made eye contact and appeared to attend to the interview. He had bilateral hand tremors and increased muscle rigidity on passive movement. He had a flat almost masked facial expression. He was alert and knew the name month, year and the name of this facility. He showed marked psychomotor retardation. I did not evaluate his gait or station. Her speech was not spontaneous and decreased rate, rhythm and volume. His affect was flat and unresponsive. He denied suicidal ideation or wishes. He denied homicidal ideation. He denied feeling hopeless, helpless or worthless. He denied experiencing ideas reference, paranoid ideation or delusional thoughts. He did not voluntarily under statements suggestive of paranoid ideation. His thinking was concrete but his associations appeared coherent and goal directed he did not express clang associations, neologisms or blocking. He denied hallucinations and did not appear to responding to internal stimuli. Global impression of intellect is average. We completed the [facility] Orientation Memory and Concentration test. His total weighted error score was 0. A total weighted error score greater than 10 is consistent with dementia. He knew the month and year. He was able to register memory phrase "Jose Rafael Marquis, [address] [place] [address].". He was able to count backwards from 20 and name the months of the year in reverse order beginning with October. He was able to recall the memory phrase after the above distraction exercise as. IMPRESSIONS: He presented to the [facility] for evaluation of a fall and was found to be confused and emergency room. He is homeless and has no income. He was living in a skilled nursing until the day of admission alleged that he was asked to leave the skilled nursing because of drug use. Although his urine drug was positive for methamphetamines and cannabinoids he is denying use of such drugs. Most notable features on mental status was the emotional unresponsiveness, concrete thinking, obtunded thinking, tremor and muscle rigidity. I suspect that the change in mental status may be related to substance use and/or abuse of the antihistamine/anticholinergic Vistaril. He has a history of mental health treatment and denied that he had recently taken psychotropic medications. I suspect that his presentation may be related to the development of his psychosis or consequence of his substance use. He may benefit from continued psychiatric treatment. DIAGNOSIS: Acute confusional state secondary to drug intoxication/abuse. History of opiate use disorder, history. Methamphetamine use disorder, history of cannabis use disorder. History of psychotic disorder. PLAN: Transferred to the psychiatric unit once he is medically stable.. 10/01/19 10:34 10/01/19 16:15
[2019-10-02] MEDS: SODIUM CHLORIDE 0.9% 1,000 ML IV SCH ×2 (04:32→17:14)
[2019-10-02] MEDS: KETOROLAC 30 MG/ML 1 ML VIAL IVP PRN (08:56)
[2019-10-02] MEDS: FAMOTIDINE 20 MG TAB PO SCH ×2 (08:57→21:37)
[2019-10-02] MEDS ORDERED: ENOXAPARIN 40 MG/0.4 ML SYRINGE SQ SCH (09:00)
[2019-10-02 10:27] LABS: ALT 487 U/L (21-72); AST 336 U/L (17-59); African American GFR (CKD) >90 (>60 ml/min/1.73 sqM); Albumin 3.6 g/dL (3.5-5.0); Alkaline Phosphatase 47 U/L (38-126); Anion Gap 6 mmol/L; Blood Urea Nitrogen 8 mg/dL (9-20); Carbon Dioxide 27 mmol/L (22-30); Chloride 109 mmol/L (98-107); Glucose 156 mg/dL (74-99); Potassium 4.2 mmol/L (3.5-5.1); Sodium 142 mmol/L (137-145); Total Bilirubin 0.4 mg/dL (0.2-1.3); Total Protein 7.3 g/dL (6.3-8.2)
[2019-10-02 10:30] LABS: Creatine Kinase 1211 U/L (55-170)
--- NOTE | 2019-10-02 13:13 | P.PN ---
Subjective 31-year-old male was admitted the after a fall and found in the snow. Apparently he admitted to using methamphetamines to the staff although he denied using any of those medications he urine drug screening is positive for methamphetamine patient denied any suicidal ideation patient the: Nursing staff he was just. Patient is drowsy does have some altered mental status although oriented 3. Complaining of back pain. Lumbar spine x-ray and pelvic x-ray chest x-ray all of for blood within normal limits. Patient does have history of psychiatric issues for which patient is on Haldol and Seroquel apparently has not been taking these medications although patient does have extrapyramidal side effects including pill-rolling tremor and flat affect may be related to have several side effects from Haldol which as per the recommendation from psychiatry presently being held patient urine drug screen is also positive for marijuana, patient does have elevated liver enzymes can be chronic elevation patient does have positive hepatitis C patient does have elevated CK as well to 1399 10/02/2019 Patient looks much better than yesterday, although patient to is still bit confused will continue with IV fluids. Patient's a creatinine kinase is still bit elevated but not concerning for rhabdomyolysis. Psychiatric is recommending inpatient psychiatric 3 admission for titration of his medications. Constitutional: Denied any fatigue denied any fever. Cardio vascular: denied any chest pain, palpitations Gastrointestinal denied any nausea vomiting Pulmonary: Denied any shortness of breath cough Neurologic denied any new focal deficits All inpatient medications were reviewed and appropriate changes in these medications as dictated in the interval history and assessment and plan. Objective - Vital Signs Vital signs: Vital Signs Temp 97.7 F 10/02/19 04:46 Pulse 67 10/02/19 04:46 Resp 20 10/02/19 04:46 BP 143/88 10/02/19 04:46 Pulse Ox 96 10/02/19 04:46 Intake & Output 10/01/19 10/02/19 10/02/19 18:59 06:59 18:59 Intake Total 300 Output Total 1000 Balance -1000 300 Intake: Oral 300 Output: Urine 1000 Other: # Voids 2 - Exam PHYSICAL EXAMINATION: GENERAL: The patient is drowsy and oriented x3, not in any acute distress. Well developed, well nourished. Patient's tumor is bit better but still has significant tremor patient is much less confused today HEENT: Pupils are round and equally reacting to light. EOMI. No scleral icterus. No conjunctival pallor. Normocephalic, atraumatic. No pharyngeal erythema. No thyromegaly. CARDIOVASCULAR: S1 and S2 present. No murmurs, rubs, or gallops. PULMONARY: Chest is clear to auscultation, no wheezing or crackles. ABDOMEN: Soft, nontender, nondistended, normoactive bowel sounds. No palpable organomegaly. MUSCULOSKELETAL: No joint swelling or deformity. EXTREMITIES: No cyanosis, clubbing, or pedal edema. NEUROLOGICAL: Gross neurological examination did not reveal any focal deficits. SKIN: No rashes. - Labs CBC & Chem 7: 09/30/19 23:02 10/02/19 09:15 Labs: Abnormal Lab Results - Last 24 Hours (Table) 10/02/19 Range/Units 09:15 Chloride 109 H (98-107) mmol/L BUN 8 L (9-20) mg/dL Glucose 156 H (74-99) mg/dL AST 336 H (17-59) U/L ALT 487 H (21-72) U/L Creatine Kinase 1211 H* (55-170) U/L Assessment and Plan Plan: Altered mental status, toxic encephalopathy from a methamphetamine overdose and marijuana use: Patient will continued on IV fluids and supportive care. -Elevated liver enzymes probably from my chronic hepatitis C. Liver enzymes are bit better today and don't expect them to get much better patient does have chronic hep C -Back pain from his back injury from fall no evidence of fracture patient was started on symptomatic treatment with Toradol. -Elevated CK secondary to fall no evidence of a myoglobinuria, continue with IV fluids repeat CK tomorrow -Possible parkinsonian or extrapyramidal side effects from Haldol which is being held at this time psychiatric evaluated the patient. -Depression history of psychosis -History of marijuana use nicotine abuse: Counseling was provided patient uses methamphetamine IV use to use her groin in the past
[2019-10-02 16:26] VITALS: TEMP 98
[2019-10-02 21:18] VITALS: BP 138/82; PULSE 73; RESP 20
--- NOTE | 2019-10-03 08:48 | P.DS ---
Providers Date of admission: 10/02/19 08:30 Expected date of discharge: 10/02/19 Attending physician: Abelardo Potts Consults: 10/01/19 07:08 Consult Physician Routine Consulting Provider: Jose Rafael Cooper Reason/Comments: Substance abuse Do you want consulting provider notified?: Yes Primary care physician: Stated None Hospital Course: Final diagnosis -Altered mental status, toxic encephalopathy from a methamphetamine overdose and marijuana use -Elevated liver enzymes probably from chronic hepatitis C -Back pain from his back injury from fall no evidence of fracture -Elevated CK secondary to fall no evidence of a myoglobinuria -Possible parkinsonian or extrapyramidal side effects from Haldol -Depression, history of psychosis -History of marijuana use nicotine abuse Discharge disposition Patient is being discharged in a stable condition with guarded prognosis to the inpatient psychiatric unit and will work with the psychiatrist on medication adjustments. Total time taken is 35 minutes. History of present illness 31-year-old male was admitted the after a fall and found in the snow. Apparently he admitted to using methamphetamines to the staff although he denied using any of those medications he urine drug screening is positive for methamphetamine patient denied any suicidal ideation patient the: Nursing staff he was just. Patient is drowsy does have some altered mental status although oriented 3. Complaining of back pain. Lumbar spine x-ray and pelvic x-ray chest x-ray all of for blood within normal limits. Patient does have history of psychiatric issues for which patient is on Haldol and Seroquel apparently has not been taking these medications although patient does have extrapyramidal side effects including pill-rolling tremor and flat affect may be related to have several side effects from Haldol which as per the recommendation from psychiatry presently being held patient urine drug screen is also positive for marijuana, patient does have elevated liver enzymes can be chronic elevation patient does have positive hepatitis C patient does have elevated CK as well to 1399 10/02/2019 Patient looks much better than yesterday, although patient to is still bit confused will continue with IV fluids. Patient's a creatinine kinase is still bit elevated but not concerning for rhabdomyolysis. Psychiatric is recommending inpatient psychiatric admission for titration of his medications. Constitutional: Denied any fatigue denied any fever. Cardio vascular: denied any chest pain, palpitations Gastrointestinal denied any nausea vomiting Pulmonary: Denied any shortness of breath cough Neurologic denied any new focal deficits On exam vital signs are stable. Temp is 98F, pulse is 90, respirations are 16, blood pressure is 150/84, oxygen saturation is 99% on room air. Cardio S1 and S2 are present. Respiratory system shows clear to auscultation. Abdomen is soft and nontender. Nervous system shows no focal deficits. Please refer to medication reconciliation sheet for a list of medications. Patient Condition at Discharge: Fair Plan - Discharge Summary Discharge Rx Participant: No New Discharge Prescriptions: New Famotidine [Pepcid] 20 mg PO BID tab Continue Divalproex [Depakote] 250 mg PO TID Discontinued QUEtiapine [SEROquel] 100 mg PO BID clonazePAM [KlonoPIN] 1 mg PO BID Haloperidol [Haldol] 5 mg PO BID buPROPion XL [Wellbutrin Xl] 150 mg PO BID QUEtiapine FUMARATE [SEROquel] 300 mg PO HS Cyclobenzaprine [Flexeril] 5 mg PO Q8H PRN PRN Reason: Muscle Pain Discharge Medication List Divalproex [Depakote] 250 mg PO TID 10/01/19 [History] Famotidine [Pepcid] 20 mg PO BID tab 10/02/19 [Rx] Patient Instructions/Handouts: Fall Prevention (ED) Activity/Diet/Wound Care/Special Instructions: Activity as tolerated Patient is being admitted to inpatient psychiatric facility Follow-up with primary care provider upon discharge Continue current diet Discharge Disposition: TRANSFER TO PSYCH HOSP/UNIT
== END 2019-10-02 22:30 | DRG 917 ==
LOC: EC 22:07 → 4MS4W 10-01 07:07 → OBSVTOIN 10-02 08:30
PROVIDERS: ADMIT Hospitalist; ATTEND Hospitalist
DX: T43.622A Poisoning by amphetamines, intentional self-harm, initial encounter (principal); G92 Toxic encephalopathy; F23 Brief psychotic disorder; M62.82 Rhabdomyolysis; I10 Essential (primary) hypertension; F32.9 Major depressive disorder, single episode, unspecified; Z71.6 Tobacco abuse counseling; F17.210 Nicotine dependence, cigarettes, uncomplicated; B18.2 Chronic viral hepatitis C; F12.10 Cannabis abuse, uncomplicated; I25.10 Atherosclerotic heart disease of native coronary artery without angina pectoris; W00.0XXA Fall on same level due to ice and snow, initial encounter; Z59.0 Homelessness; Z79.899 Other long term (current) drug therapy; Z82.49 Family history of ischemic heart disease and other diseases of the circulatory system; Z82.61 Family history of arthritis; G20 Parkinson's disease; G56.03 Carpal tunnel syndrome, bilateral upper limbs; G89.29 Other chronic pain; T14.90XA Injury, unspecified, initial encounter
CPT/HCPCS: 36415; 71045; 72100; 72170; 80053; 80074; 80306; 80320; 80329; 81001; 82075; 82140; 82550; 83520; 83605; 83690; 83735; 84100; 85025; 90732; 96361; 96374; 99284

== ENCOUNTER 2019-10-02 22:17 | Inpatient (IN) | payer MEDICAID ==
[2019-10-02] MEDS ORDERED: MAGNESIUM HYDROXIDE 2,400 MG/10 ML CUP PO PRN (22:44)
[2019-10-02] MEDS ORDERED: MAG HYDROX/AL HYDROX/SIMETH 30 ML CUP PO PRN (22:44)
[2019-10-02] MEDS ORDERED: ZIPRASIDONE 20 MG VIAL IM PRN (22:44)
[2019-10-02] MEDS: QUEtiapine 200 MG TAB PO SCH (22:56)
[2019-10-02 23:30] VITALS: BMI 27.3
[2019-10-03] MEDS ORDERED: IBUPROFEN 600 MG TAB PO PRN (08:19)
[2019-10-03] MEDS: FAMOTIDINE 20 MG TAB PO SCH ×2 (09:38→20:35)
--- NOTE | 2019-10-03 12:56 | P.HP ---
Psychiatric H&P - . H&P Date: 10/03/19 History & Physical: IDENTIFYING DATA: The patient is a 33-year-old homeless male who presented to the emergency room on 09/30/2019 for an evaluation of a fall. He appeared confused in the emergency room and told the emergency room physician that she "may have overdosed on medications." HISTORY OF PRESENT ILLNESS: He was initially admitted to medicine service for evaluation of a fall and mental status changes. I consulted was on medicine service and recommended transfer to psychiatric unit once he is medically stable. His evaluation included a history and physical exam, chest x-ray, lumbar spine x-ray and pelvis x-ray. The x-rays were essentially normal. The impression of the board layer was toxic encephalopathy from methamphetamine overdose and marijuana use, elevated liver enzymes secondary to chronic hepatitis C back and pain associated elevated CPK from a fall. During his medical hospitalization he apparently told nurses that he had been injecting methamphetamine. He complained that he was "kicked out" of the rescue mission because "they thought I was using drugs." He denied the use of drugs and could not explain why his urine drug screen was positive for methamphetamine and marijuana. He stated he went to a "friends" house where he smoked marijuana. The friend brought him to the ER concerned about his well-being. He has history of substance use problems and has been diagnosed with an opiate use disorder, marijuana use disorder and methamphetamine use disorder. She alleged that he is been abstinent from heroin since September 2018. He denied psychiatric symptoms such as depression, persistent and overwhelming anxiety, paranoia or disturbances of perception. During a prior hospitalization he maintained several paranoid delusional beliefs including that the government was reading his thoughts, that his brother had injected him with an old technology and that the government is trying to kill him. He specifically denied that he was experiencing these thoughts or beliefs. He denied experienc ing auditory, visual or olfactory hallucinations. He denied ideas of reference, thought insertion or thought broadcasting. During our initial assessment she denied recent mental health treatment. German anguiano during this interview he admitted that he was discharged from [facility] 2 weeks ago and placed, at his request, at the [facility]. He denied that he took the psychotropic medications prescribed to him on discharge. The medications prescribed included clonazepam, bupropion, Seroquel, Haldol, Depakote and Flexeril. All the the bottles from full with the exception of Flexeril. He told the medical nurse that he had not been taking the Flexeril and could not explain the reason why the medicines were missing from the container. He alleged that he has been homeless for "about 1 year" since he and his . He was residing at the [facility] for 2 weeks until he was asked to leave. Prior to the [facility] he was living at a halfway in "[place]". PAST PSYCHIATRIC HISTORY: He had 2 psychiatric admissions to [facility] in 2018 for complaints of depression and suicidal ideation. His diagnoses were both admissions was bipolar disorder, opiate use disorder and cannabis use disorder. He can be admitted to admissions other facilities but did not know the name of the facility or when he had been admitted. He was unable to provide the name of his mental health agency or his treatment team. As mentioned above, he was discharged from [facility] in August 2019 with multiple medications. PAST MEDICAL HISTORY: He reported history of hepatitis C and "heart disease". According to medical record he has history of GERD, hypertension, hepatitis C, degenerative disc joint disease and carpal tunnel disease. ALLERGIES: NO KNOWN DRUG ALLERGIES. SUBSTANCE USE HISTORY: He has history of an opiate use disorder but alleged that he has been abstinent for 1 year (he told the nurse that he had not used heroin for 3 months). He began using heroin when he was 23 years old alleged that he was introduced to heroin by his stepfather. He admitted to having been in treatment programs but could not recall the name of the programs. According to the record he had one treatment episode at [facility]. FAMILY PSYCHIATRIC/SUBSTANCE USE HISTORY: He denied history of mental health or substance problems in his family however, the record indicates a family history depression, anxiety as well as substance use problems. SOCIAL HISTORY: His born and raised in [facility]. His parents are . He has no contact with his 3 siblings. He is homeless, unemployed and has no income. He's been living in shelters. He is after 3 years. He has no children. 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 According to record he was expelled from school in 11th grade but completed his GED. MENTAL STATUS EXAM: He presented as a disheveled 33-year-old male who had a pill-rolling tremor and a masked facies. He made eye contact and appeared to attend to the interview. The tremor was greater on the left hand on the right. He was alert and knew the name month, year and the name of this facility. He showed marked psychomotor retardation. His gait was slow, steady but without associated movements.. Her speech was not spontaneous and decreased rate, rhythm and volume. His affect was flat and unresponsive. He denied suicidal ideation or wishes. He denied homicidal ideation. He denied feeling hopeless, helpless or worthless. He denied experiencing ideas reference, paranoid ideation or delusional thoughts. He did not voluntarily under statements suggestive of paranoid ideation. His thinking was concrete but his associations appeared coherent and goal directed he did not express clang associations, neologisms or blocking. He denied hallucinations and did not appear to responding to internal stimuli. Global impression of intellect is average. IMPRESSIONS: He is a 33-year-old homeless and unemployed male who has history of an opiate use disorder. [facility]. He was initially admitted to medicine service for evaluation of a fall and acute mental status changes. The impression of the hospitalist was that the mental status changes are secondary to use of methamphetamine and marijuana because urine drug screen was positive for methamphetamine and cannabis. However, he denied use of methamphetamine prior to admission but admits to smoking marijuana. She had multiple psychiatric hospitalizations and most recently treated with multiple psychotropics including haloperidol. I suspect that the parkinsonism secondary to treatment with haloperidol. There is no current evidence of psychosis. He should be treated inpatient basis with a combination of multimodal therapy and psychotropic medications. 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 Opiate use disorder severe in sustained remission.. Methamphetamine use disorder, history of cannabis use disorder. History of a bipolar illness PLAN: Admit to the psychiatric unit. Safety precautions. Consult medicine for initial physical exam and medical history. 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 Begin Seroquel 20 mg at bedtime given his history of a psychotic disorder. Avoid high potency antipsychotic medications due to to the possible neuroleptic induced parkinsonism. Consider trial of Cogentin for treatment of Parkinson's symptoms. Consider neurology consult for same. boat worker to assist with placement and aftercare services. Consider referral for residential substance abuse treatment. Encourage participation in therapeutic groups and activities. Evaluate clinical status response to treatment daily basis. Allergies Allergy/AdvReac Type Severity Reaction Status Date / Time No Known Allergies Allergy Verified 10/02/19 23:36 Vital Signs Temp 98.0 F 10/03/19 07:04 Pulse 82 10/03/19 07:04 Resp 16 10/03/19 07:04 BP 155/90 10/03/19 07:04 Pulse Ox Intake & Output 10/02/19 10/03/19 10/03/19 18:59 06:59 18:59 Weight 81.647 kg 10/03/19 10:09 10/03/19 12:53
[2019-10-03] MEDS: LORazepam 1 MG TAB PO PRN ×2 (13:28→20:35)
--- NOTE | 2019-10-03 14:34 | P.CONS ---
History of Present Illness - Reason for Consult Medical clearance, elevated CK - History of Present Illness 33-year-old male was admitted to for methamphetamine dose to my service was subsequently transferred to psychiatric floor for management of his psychiatric symptoms and titration of his psychiatric medications as patient was having except for minimal side effects from Haldol and Seroquel. Patient today is doing much better. Patient had elevated CK without any evidence of rhabdomyolysis, the CK was improving at the time. Patient is presently on Seroquel and Geodon patient is looking much better today patient on Motrin for back pain with improved symptoms. Patient does have history of hepatitis C Review of Systems REVIEW OF SYSTEMS: CONSTITUTIONAL: No fever, no malaise, no fatigue. HEENT: No recent visual problems or hearing problems. Denied any sore throat. CARDIOVASCULAR: No chest pain, orthopnea, PND, no palpitations, no syncope. PULMONARY: No shortness of breath, no cough, no hemoptysis. GASTROINTESTINAL: No diarrhea, no nausea, no vomiting, no abdominal pain. NEUROLOGICAL: No headaches, no weakness, no numbness. HEMATOLOGICAL: Denies any bleeding or petechiae. GENITOURINARY: Denies any burning micturition, frequency, or urgency. MUSCULOSKELETAL/RHEUMATOLOGICAL: Denies any joint pain, swelling, or any muscle pain. ENDOCRINE: Denies any polyuria or polydipsia. The rest of the 14-point review of systems is negative. Past Medical History Past Medical History: Coronary Artery Disease (CAD), GERD/Reflux, Hypertension Additional Past Medical History / Comment(s): Hepatitis C, DDD, back pain, bilateral carpel tunnel syndrome. History of Any Multi-Drug Resistant Organisms: None Reported MDRO Source:: unknown Past Surgical History: No Surgical Hx Reported Past Anesthesia/Blood Transfusion Reactions: Unable to Obtain Additional Past Anesthesia/Blood Transfusion Reaction / Comm: Pt states he has never had surgery. Smoking Status: Current every day smoker - Past Family History Father Family Medical History: Coronary Artery Disease (CAD) Additional Family Medical History / Comment(s): Father is . Mother Family Medical History: Rheumatoid Arthritis (RA) Additional Family Medical History / Comment(s): Mother is . Medications and Allergies Home Medications Medication Instructions Recorded Confirmed Type Divalproex [Depakote] 250 mg PO TID 10/01/19 10/02/19 History Famotidine [Pepcid] 20 mg PO BID tab 10/02/19 10/02/19 Rx Allergies Allergy/AdvReac Type Severity Reaction Status Date / Time No Known Allergies Allergy Verified 10/02/19 23:36 Physical Exam Vitals: Vital Signs Temp Pulse Resp BP 10/03/19 12:35 99 20 145/96 10/03/19 07:04 98.0 F 82 16 155/90 10/02/19 23:19 96.5 F L 73 18 133/89 Intake and Output 10/02/19 10/03/19 10/03/19 22:59 06:59 14:59 Other: Weight 81.647 kg PHYSICAL EXAMINATION: GENERAL: The patient is alert and oriented x3, not in any acute distress. Well developed, well nourished. HEENT: Pupils are round and equally reacting to light. EOMI. No scleral icterus. No conjunctival pallor. Normocephalic, atraumatic. No pharyngeal erythema. No thyromegaly. CARDIOVASCULAR: S1 and S2 present. No murmurs, rubs, or gallops. PULMONARY: Chest is clear to auscultation, no wheezing or crackles. ABDOMEN: Soft, nontender, nondistended, normoactive bowel sounds. No palpable organomegaly. MUSCULOSKELETAL: No joint swelling or deformity. EXTREMITIES: No cyanosis, clubbing, or pedal edema. NEUROLOGICAL: Gross neurological examination did not reveal any focal deficits. SKIN: No rashes. Assessment and Plan Plan: -Hepatitis C: Patient was counseled to follow up with gastroenterology as an outpatient. -Back pain improved with ibuprofen secondary to falls no clinical evidence of fractures -Elevated CK secondary to fall no evidence of kidney dysfunction or rhabdomyolysis at this time no further intervention at this time -Bipolar disorder with extracoronal side effects of parkinsonian symptoms of pill-rolling because of which patient was admitted to inpatient psychiatric floor Haldol was discontinued patient was started on atypical antipsychotics and will be monitored. This management as per psychiatry -History of IV drug use nicotine abuse: Counseling was provided
[2019-10-03] MEDS: QUEtiapine 200 MG TAB PO SCH (20:35)
[2019-10-04] MEDS: FAMOTIDINE 20 MG TAB PO SCH ×2 (07:32→21:12)
[2019-10-04] MEDS: LORazepam 1 MG TAB PO PRN ×2 (07:33→15:21)
--- NOTE | 2019-10-04 15:06 | P.PN ---
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 He complained of anxiety and requested additional medications for the treatment of anxiety. He specifically requested additional dosing of Ativan. I explained that I will not prescribe increased doses of benzodiazepines and I would not prescribe benzodiazepines at discharge because of his history of drug abuse. He was guarded and evasive. Unlike yesterday, he admitted to using methamphetamine. He alleged he didn't use it on a daily remission but he used "the week before." His tremor is less pronounced. He denied feeling persistently depressed. He remains distressed about his social issues. He has come and no residence. he is uncertain whether he could [facility] the [facility]. he is agreed to a residential substance abuse treatment program and made the initial contact with [place]. Mental status exam: He presented as a disheveled 33-year-old male who had a fine hand tremor and a flat facial expression. He made eye contact and appeared to attend to the interview. He was alert and knew the name month, year and the name of this facility. He showed marked psychomotor retardation. His gait was slow, steady but without associated movements.. Her speech was not spontaneous and decreased rate, rhythm and volume. His affect was flat and unresponsive. He denied suicidal ideation or wishes. He denied homicidal ideation. He denied feeling hopeless, helpless or worthless. He denied experiencing ideas reference, paranoid ideation or delusional thoughts. He did not voluntarily under statements suggestive of paranoid ideation. His thinking was concrete but his associations appeared coherent and goal directed and he did not express clang associations, neologisms or blocking. He showed poverty of speech and poverty of content of speech. He denied hallucinations and did not appear to responding to internal stimuli. Assessment: He is anxiety focused but showing no understanding awareness of the nature of his anxiety. He is benzodiazepine seeking. His tremor has improved most likely with abstinence from the methamphetamine. He has contacted [facility] for residential substance abuse treatment. Plan: Continue inpatient psychiatric hospitalization. Continue safety precautions. Continue Seroquel 200 mg at bedtime for treatment of his mood sy mptoms. Decrease Ativan to 1 mg by mouth twice a day and continue to taper the dose prior to discharge. Begin Vistaril 25 mg every 6 when necessary for complaints of subjective anxiety. [employer] to assist with disposition aftercare with residential substance abuse treatment program. Discharge on 10/07/2019.
[2019-10-04] MEDS: hydrOXYzine PAMOATE 25 MG CAP PO PRN (16:31)
[2019-10-04] MEDS: QUEtiapine 200 MG TAB PO SCH (21:12)
[2019-10-05] MEDS: LORazepam 1 MG TAB PO PRN ×2 (04:34→17:30)
[2019-10-05] MEDS: hydrOXYzine PAMOATE 25 MG CAP PO PRN ×3 (06:13→20:38)
[2019-10-05] MEDS: FAMOTIDINE 20 MG TAB PO SCH ×2 (08:02→20:37)
--- NOTE | 2019-10-05 11:26 | P.PN ---
Progress Note - Text Progress Note Date: 10/05/19 Interval history: Patient was seen lying down in his bed and refused to get out of bed. Patient offered no complaints and states that he is prefers to stay in bed while on the unit. Patient denies any problems overnight and states that he's been sleeping well. He claims that his mood and anxiety are "fine". Patient denies going to any groups at this time however was encouraged to do so. He states that he's been eating well and taking his medications with no complaints. At this time patient denies any suicidal or homicidal ideations intent or plan. Denies any Auditory or visual hallucinations. Patient denies any side effects from the medications and has been compliant with meds. Mental status exam: General Appearance: Patient appears to be stated age is alert, and somewhat directable. Poor hygiene and grooming. Behavior: No agitated behavior. Patient is calm and directable Speech: Patient's speech is fluent and nonpressured. Soft tone. Mood/Affect: Mood is improving, affect is congruent and constricted. Suicidality/Homicidality: Patient denies having any suicidal or homicidal ideation intent or plan. Perceptions: Patient denies any auditory or visual hallucinations. Though content/process: There is no evidence of any delusional thought content and thought process is linear and goal-directed. Memory and concentration: AOX3, grossly intact for the purposes of this session Judgment and insight: improving mildly Assessment/Plan: Continue with current diagnosis. Patient continues to meet criteria for inpatient psychiatric admission for symptom stabilization and safety.Patient will be maintained on current psychotropic medication regimen. Monitor for medication compliance and for any psychotropic medication side effects. Will continue to monitor ongoing response to treatment. Patient has elevated heart rate and we'll continue to monitor. Will consider decreasing Ativan dose tomorrow as this will need to be tapered off or to discharge.
[2019-10-05] MEDS: NICOTINE 14MG/24HR PATCH TRANSDERM SCH (14:48)
[2019-10-05] MEDS: QUEtiapine 200 MG TAB PO SCH (20:37)
[2019-10-06] MEDS: NICOTINE 14MG/24HR PATCH TRANSDERM SCH (08:19)
[2019-10-06] MEDS: FAMOTIDINE 20 MG TAB PO SCH ×2 (08:19→19:59)
[2019-10-06] MEDS: LORazepam 1 MG TAB PO PRN (08:21)
--- NOTE | 2019-10-06 10:23 | P.PN ---
Progress Note - Text Progress Note Date: 10/06/19 Interval history: Patient was seen lying down in his bed and refused to get out of bed once again today. Patient offered no complaints overnight and states that he is doing "fine". Patient did state that he has been out of bed and walking around earlier and was encouraged to do so more to help him. He claims that he's been sleeping well and throughout the night. He claims that his mood and anxiety are "okay". Patient denies going to any groups at this time however was encouraged to do so. He states that he's been eating well and taking his medications with no complaints. At this time patient denies any suicidal or homicidal ideations intent or plan. Denies any Auditory or visual hui llucinations. Patient denies any side effects from the medications and has been compliant with meds. Mental status exam: General Appearance: Patient appears to be stated age is alert, and somewhat directable. Improving hygiene and grooming. Behavior: No agitated behavior. Patient is calm and directable Speech: Patient's speech is fluent and nonpressured. Mood/Affect: Mood is improving, affect is congruent and constricted. Suicidality/Homicidality: Patient denies having any suicidal or homicidal ideation intent or plan. Perceptions: Patient denies any auditory or visual hallucinations. Though content/process: There is no evidence of any delusional thought content and thought process is linear and goal-directed. Memory and concentration: AOX3, grossly intact for the purposes of this session Judgment and insight: improving mildly Assessment/Plan: Continue with current diagnosis. Patient continues to meet criteria for inpatient psychiatric admission for symptom stabilization and safety.Patient will be maintained on current psychotropic medication regimen. Monitor for medication compliance and for any psychotropic medication side effects. Will continue to monitor ongoing response to treatment. Patient has improvement in his vital signs and at this time will continue with decreasing Ativan to 0.5 mg twice a day when necessary for severe anxiety. Will also decrease Seroquel to 150 mg daily at bedtime to cut back on sedation.
[2019-10-06] MEDS: hydrOXYzine PAMOATE 25 MG CAP PO PRN (13:06)
[2019-10-06] MEDS: QUEtiapine 100 MG TAB PO SCH (19:59)
[2019-10-07] MEDS: LORazepam 0.5 MG TAB PO PRN ×2 (09:06→21:15)
[2019-10-07] MEDS: NICOTINE 14MG/24HR PATCH TRANSDERM SCH (09:06)
[2019-10-07] MEDS: FAMOTIDINE 20 MG TAB PO SCH ×2 (09:06→21:15)
[2019-10-07] MEDS: hydrOXYzine PAMOATE 25 MG CAP PO PRN (12:56)
--- NOTE | 2019-10-07 15:18 | P.PN ---
Progress Note - Text Progress Note Date: 10/07/19 Chief complaint: "I feel good today " Subjective: The patient has been seen today as follow-up, chart reviewed, case discussed with the treatment team. Patient slept about 6 hours last night. Patient has been going to some groups and other unit activities. Patient reports fair appetite. And denies feeling depressed, hopeless, or suicidal. He denies any paranoid ideation, delusions, or hallucinations. He reports he was told that he came to this unit because he has meth amphetamine intoxication. Patient reports a started to have shaking few months ago, and he is planning to check with an outpatient neurologist after discharge. The patient is compliant with his medications and denies any adverse reactions. The patient denies any manic symptoms including sustained period of time with elevated or irritable mood, impulsive or irrational behavior, inflated self-esteem, or absence need to sleep due to increases goal-directed activities. The patient denies any auditory or visual hallucinations. Also the patient denies any paranoid ideation. Objective: Vitals has been reviewed. Mental status examination: Appearance: The patient appears stated age, adequately groomed and dressed, no specific features. Gait/posture: Normal gait, Normal arm swinging: Bilateral hand shaking. Attitude and behavior: engaged, cooperative, eye contact. Motor activity: Normal psychomotor activity Speech: Normal rate, tone. Mood: Anxious Affect: Restricted range. Thought form: goal-directed, linear, coherent. Thought content: Non-delusional, denies suicidal thoughts, denies homicidal thoughts, denies intentions or plans. Perception: Denies any auditory or visual hallucinations Attention: No impairment. Patient was able to repeat serial 5. Orientation: Patient patient was fully oriented to time place person and situation. Insight: Patient has fair insight about his psychiatric disorder. Judgment: Patient has fair judgment about his psychiatric treatment. Assessment: Bipolar disorder by history. Opioid use disorder in sustained remission. Meth amphetamine use disorder, severe. Cannabis use disorder. Plan: Continue inpatient level of care for further monitoring and stabilization on psychiatric medications Continue treatment of bipolar disorder. Precautions: Continue 15 minutes check for safety. Consider medical consultation if any acute medical issues arise. Patient will follow-up with neurology consultation after discharge. Provide the patient individual, group therapy, substance use disorder counseling to give better insight and learn coping skills. Medications: Continue Seroquel 150 mg daily for mood stabilization Discharge patient to OUTPATIENT services upon a stabilization Prognosis: Improving Expected LOS: 2-3 days
[2019-10-07] MEDS: QUEtiapine 100 MG TAB PO SCH (21:15)
[2019-10-08] MEDS: NICOTINE 14MG/24HR PATCH TRANSDERM SCH (08:26)
[2019-10-08] MEDS: FAMOTIDINE 20 MG TAB PO SCH ×2 (08:26→21:18)
[2019-10-08] MEDS: LORazepam 0.5 MG TAB PO PRN ×2 (08:27→16:04)
[2019-10-08] MEDS: hydrOXYzine PAMOATE 25 MG CAP PO PRN (10:37)
--- NOTE | 2019-10-08 11:54 | P.PN ---
Progress Note - Text Progress Note Date: 10/08/19 Chief complaint: "I feel better today " Subjective: The patient has been seen today as follow-up, chart reviewed, case discussed with the treatment team. Patient slept about 6 hours last night. Patient has been going to some groups and other unit activities. Patient reports fair appetite. Patient reports feeling less shaking and he presents with less tremors today. He has a stable gait was no muscle stiffness or rigidity. Patient reports feeling stable emotionally and he denies feeling suicidal or homicidal. He denies any auditory or visual hallucinations and no delusions could be elicited. He minimizes depression and reports his anxiety is better controlled. The patient is compliant with his medications and denies any adverse reactions. Discussed with the treatment team to discharge the patient directly to inpatient rehab and he is accepted to program with the scheduled intake on . Review of other systems: Patient denies any physical symptoms besides what has been mentioned above. No breathing problems, no chest pain reported today. Objective: Vitals has been reviewed. Mental status examination: Appearance: The patient appears stated age, adequately groomed and dressed, no specific features. Gait/posture: Normal gait, Normal arm swinging: Bilateral hand shaking. Attitude and behavior: engaged, cooperative, fair eye contact. Motor activity: Normal psychomotor activity Speech: Normal rate, tone. Mood: Anxious Affect: Restricted range. Thought form: goal-directed, linear, coherent. Thought content: Non-delusional, denies suicidal thoughts, denies homicidal thoughts, denies intentions or plans. Perception: Denies any auditory or visual hallucinations Attention: No impairment. Patient was able to repeat serial 5. Orientation: Patient patient was fully oriented to time place person and situation. Insight: Patient has fair insight about his psychiatric disorder. Judgment: Patient has fair judgment about his psychiatric treatment. Assessment: Bipolar disorder by history. Opioid use disorder in sustained remission. Methamphetamine use disorder, severe. Cannabis use disorder. Plan: Continue inpatient level of care for further monitoring and stabilization on psychiatric medications Continue treatment of bipolar disorder. Precautions: Continue 15 minutes check for safety. Consider medical consultation if any acute medical issues arise. Patient will follow-up with neurology consultation after discharge. Provide the patient individual, group therapy, substance use disorder counseling to give better insight and learn coping skills. Medications: Continue Seroquel 150 mg daily for mood stabilization Taper down Ativan when necessary for anxiety to discontinue Discharge patient to inpatient drug treatment upon a stabilization Prognosis: Improving Expected LOS: 1-2 days
[2019-10-08] MEDS: QUEtiapine 100 MG TAB PO SCH (21:18)
[2019-10-09] MEDS: NICOTINE 14MG/24HR PATCH TRANSDERM SCH (08:16)
[2019-10-09] MEDS: FAMOTIDINE 20 MG TAB PO SCH ×2 (08:16→21:03)
[2019-10-09] MEDS: hydrOXYzine PAMOATE 25 MG CAP PO PRN (08:17)
--- NOTE | 2019-10-09 11:46 | P.PN ---
Progress Note - Text Progress Note Date: 10/09/19 Chief complaint: "I am feeling good today" Subjective: The patient has been seen today as follow-up, chart reviewed, case discussed with the treatment team. Patient slept about 6-7 hours last night. Patient has been going to groups and other unit activities. Patient reports good appetite. Patient reports feeling stable emotionally and denies feeling depressed, hopeless or suicidal. he denies any severe mood swings, agitation or manic symptoms. He denies any hallucinations, paranoid ideation and no delusions could be elicited. The patient is compliant with his medications and denies any adverse reactions. Discussed discharge plan, and patient is willing to continue [facility] [place] at [place] after discharge. Review of other systems: Patient denies any physical symptoms besides what has been mentioned above. No breathing problems, no chest pain reported today. Objective: Vitals has been reviewed. Mental status examination: Appearance: The patient appears stated age, adequately groomed and dressed, no specific features. Gait/posture: Normal gait, Normal arm swinging: Bilateral hand shaking. Attitude and behavior: engaged, cooperative, fair eye contact. Motor activity: Normal psychomotor activity Speech: Normal rate, tone. Mood: "fine" Affect: Restricted range. Thought form: goal-directed, linear, coherent. Thought content: Non-delusional, denies suicidal thoughts, denies homicidal thoughts, denies intentions or plans. Perception: Denies any auditory or visual hallucinations Attention: No impairment. Patient was able to repeat serial 5. Orientation: Patient patient was fully oriented to time place person and situation. Insight: Patient has fair insight about his psychiatric disorder. Judgment: Patient has fair judgment about his psychiatric treatment. Assessment: Bipolar disorder by history. Opioid use disorder in sustained remission. Methamphetamine use disorder, severe. Cannabis use disorder. Plan: Continue inpatient level of care for further monitoring and stabilization on psychiatric medications Continue treatment of bipolar disorder. Precautions: Continue 15 minutes check for safety. Consider medical consultation if any acute medical issues arise. Patient will follow-up with neurology consultation after discharge. Provide the patient individual, group therapy, substance use disorder counseling to give better insight and learn coping skills. Medications: Continue Seroquel 150 mg daily for mood stabilization Taper down Ativan when necessary for anxiety to discontinue Discharge patient to inpatient drug treatment upon a stabilization Prognosis: Improving Expected LOS: Plan for discharge tomorrow.
[2019-10-09] MEDS: QUEtiapine 100 MG TAB PO SCH (21:04)
[2019-10-09] MEDS: LORazepam 0.5 MG TAB PO PRN (21:05)
[2019-10-10 06:13] VITALS: BP 127/79; PULSE 71; RESP 16; TEMP 97.6
[2019-10-10] MEDS: NICOTINE 14MG/24HR PATCH TRANSDERM SCH (09:32)
[2019-10-10] MEDS: FAMOTIDINE 20 MG TAB PO SCH (09:32)
[2019-10-10] MEDS: hydrOXYzine PAMOATE 25 MG CAP PO PRN (09:33)
--- NOTE | 2019-10-10 11:54 | P.DS ---
Providers Date of admission: 10/02/19 22:38 Expected date of discharge: 10/10/19 Attending physician: Ro Kemp MD Consults: 10/02/19 22:44 Consult Physician Routine Consulting Provider: Abelardo Potts Consult Reason/Comments: H & P and medical care Do you want consulting provider notified?: Yes Primary care physician: Stated None Hospital Course: Brief HPI: As per the HPI from initial psychiatric evaluation during this hospital stay: " The patient is a 33-year-old homeless male who presented to the emergency room on 09/30/2019 for an evaluation of a fall. He appeared confused in the emergency room and told the emergency room physician that she "may have overdosed on medications." He was initially admitted to medicine service for evaluation of a fall and mental status changes. I consulted was on medicine service and recommended transfer to psychiatric unit once he is medically stable. His evaluation included a history and physical exam, chest x-ray, lumbar spine x-ray and pelvis x-ray. The x-rays were essentially normal. 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 During his medical hospitalization he apparently told nurses that he had been injecting methamphetamine. He complained that he was "kicked out" of the rescue mission because "they thought I was using drugs." He denied the use of drugs and could not explain why his urine drug screen was positive for methamphetamine and marijuana. He stated he went to a "friends" house where he smoked marijuana. The friend brought him to the ER concerned about his well-being. He has history of substance use problems and has been diagnosed with an opiate use disorder, marijuana use disorder and methamphetamine use disorder. She alleged that he is been abstinent from heroin since September 2018. He denied psychiatric symptoms such as depression, persistent and overwhelming anxiety, paranoia or disturbances of perception. During a prior hospitalization he maintained several paranoid delusional beliefs including that the government was reading his thoughts, that his brother had injected him with an old technology and that the government is trying to kill him. He specifically denied that he was experiencing these thoughts or beliefs. He denied experiencing auditory, visual or olfactory hallucinations. He denied ideas of reference, thought insertion or thought broadcasting. During our initial assessment she denied recent mental health treatment. However during this interview he admitted that he was discharged from [facility] 2 weeks ago and placed, at his request, at the [facility]. He denied that he took the psychotropic medications prescribed to him on discharge. The medications prescribed included clonazepam, bupropion, Seroquel, Haldol, Depakote and Flexeril. All the the bottles from full with the exception of Flexeril. He told the medical nurse that he had not been taking the Flexeril and could not explain the reason why the medicines were missing fr om the container. He alleged that he has been homeless for "about 1 year" since he and his . He was residing at the [facility] for 2 weeks until he was asked to leave. Prior to the [facility] he was living at a correction in "[place]". " Hospital Course: Psychiatric: The patient was initiated on psychotropic medication Seroquel for mood stabilization and to help with psychotic symptoms . The medication doses has been adjusted to optimize the stability of the psychiatric symptoms, and to avoid side effects. Patient tolerated the above medication/s very well, without side effects. The patient has showed improvement of muscle shaking and tremors which disappeared completely before discharge.Ativan was started as PRN medications for severe anxiety which the patient used to take it regualry 0.5 mg BID, but it was successfully tapered before discharge. The patient was admitted for a safe and supportive environment. A psychiatric, medical, and psychosocial evaluations were done on admission. The patient's hospital stay is unremarkable. Patient did not exhibit any aggression towards himself or others during his hospitalization, and there was no requirements for emergency medications or restraints. The patient attended most of the groups to obtain coping skills and process stress. Patient was compliant with his medications. Patient got along with his peers and with staff. The objective signs of depression, mood fluctuations and psychosis have been improved. Patient denies any suicidal ideation, not made any hopelessness/helplessness statements for more than 3 days prior to discharge. Maximum hospitalization benefit was reached and subsequently discharge was planned, and patient is appropriate to continue treatment on an outpatient basis. On the day of discharge the patient was able to create an appropriate safety plan and denies any side effect of medications. Discussion was held about need to stop use of drugs including opioid, methamph etamine and cannabis , including their effects on mood, interaction with psychiatric medications, and their role in events leading up to admission. Patient is in the preparation to action stage of a change. Patient will be discharged to inpatient [facility] treatment program at [facility]. Assessment: Assessment at the day of discharge: The patient was seen at the day of discharge. Patient denies any sleep or appetite disturbances, denies feeling hopeless, worthless or helpless. Also, patient denies any other depressive or manic symptoms. Patient denies any psychotic symptoms. Patient denies suicidal or homicidal thoughts, intention or plans. Nurses and therapist reported patient is psychiatrically stable, and agreed to discharge plan. Mental status examination: Appearance: The patient appears stated age, adequately groomed and dressed, no specific features. Gait/posture: Normal gait, Normal arm swinging: Bilateral hand shaking. Attitude and behavior: engaged, cooperative, fair eye contact. Motor activity: Normal psychomotor activity Speech: Normal rate, tone. Mood: "fine" Affect: Restricted range. Thought form: goal-directed, linear, coherent. Thought content: Non-delusional, denies suicidal thoughts, denies homicidal thoughts, denies intentions or plans. Perception: Denies any auditory or visual hallucinations Attention: No impairment. Patient was able to repeat serial 5. Orientation: Patient patient was fully oriented to time place person and situation. Insight: Patient has fair insight about his psychiatric disorder. Judgment: Patient has fair judgment about his psychiatric treatment. Discharge diagnoses: Bipolar disorder by history. Opioid use disorder in sustained remission. Methamphetamine use disorder, severe. Cannabis use disorder. Health Concerns: Activity: As tolerated Diet: Regular Special Instructions: Labs to be completed after discharge: As clinically indicated by his outpatient psychiatrist and PCP. Pt is currently on Seroquel and he was educated about risk of metabolic syndrome and need to continue monitoring weight, and continue monitoring lipid panel and Hb A1C. Discharge checklist for suicide and violence to determine stability: Safety plan was discussed with the patient. Patient denies any current suicidal/ homicidal or violent ideation/plan/ intent. Patient has ability to address stressors/emotions. Patient understands and is comfortable with discharge plan. Outpatient appointments is near [facility] Emergency number (911, crisis number) provided to the patient. Avoid the use of street drugs and alcohol. Take all medications as prescribed. When you are in need of refills please contact your medical provider and/or outpatient psychiatrist to have this done. Please go to scheduled outpatient appointment for aftercare. If symptoms return or become worse call the crisis line at and/or go to the nearest emergency room for an evaluation. Pertinent Studies: lab results from his admission to medical service 09/30-10/02/19 CBC: Within normal range decides elevated WBC 11.9, HCT 38.9, and he neutrophils 9.8. CMP: Was in normal range besides a 6326, ALT 522, and a creatinine kinase 1035. urine: Shows traces of ketones and moderate mucus. toxicology was positive for methamphetamine and marijuana. hepatitis C antibody was reactive. Procedures: Plan: Patient will continue follow-up at-. As per discharge plan Continue the following medications: As per discharge plan Patient Condition at Discharge: Stable Patient will be discharge to [facility] to continue inpatient [facility] treatment. Discharge Medication List Famotidine [Pepcid] 20 mg PO BID #60 tab 10/10/19 [Rx] QUEtiapine [SEROquel] 150 mg PO HS #45 tab 10/10/19 [Rx] hydrOXYzine PAMOATE [Vistaril] 25 mg PO Q6HR PRN #120 cap 10/10/19 [Rx] Plan - Discharge Summary Discharge Rx Participant: No New Discharge Prescriptions: New Famotidine [Pepcid] 20 mg PO BID #60 tab QUEtiapine [SEROquel] 150 mg PO HS #45 tab hydrOXYzine PAMOATE [Vistaril] 25 mg PO Q6HR PRN #120 cap PRN Reason: Mild-Moderate Anxiety Discontinued Divalproex [Depakote] 250 mg PO TID Famotidine [Pepcid] 20 mg PO BID tab Discharge Medication List Famotidine [Pepcid] 20 mg PO BID #60 tab 10/10/19 [Rx] QUEtiapine [SEROquel] 150 mg PO HS #45 tab 10/10/19 [Rx] hydrOXYzine PAMOATE [Vistaril] 25 mg PO Q6HR PRN #120 cap 10/10/19 [Rx] Follow up Appointment(s)/Referral(s): [facility] [Outside] - 10/10/19 11:45 am ([place]) Patient Instructions/Handouts: How to Stop Smoking (DC), Depression (DC), Methamphetamine Abuse (DC), Psychotic Disorder (DC) Activity/Diet/Wound Care/Special Instructions: Activity and diet as tolerated. Avoid the use of street drugs and alcohol. Take all medications as prescribed. When you are in need of refills on your medications please contact your medical provider and/or outpatient psychiatrist to have this done. Please go to scheduled outpatient appointment for aftercare treatment. If symptoms return or become worse, call the crisis line at and/or go to the nearest emergency room for evaluation. Discharge Disposition: DC/TRNS INTERMEDIATE CARE FAC
== END 2019-10-10 10:24 | DRG 885 ==
LOC: 3MHU 22:38
PROVIDERS: ADMIT Psychiatry & Neurology Psychiatry; ATTEND Psychiatry & Neurology Psychiatry
DX: F31.9 Bipolar disorder, unspecified (principal); G92 Toxic encephalopathy; F11.21 Opioid dependence, in remission; B18.2 Chronic viral hepatitis C; F12.10 Cannabis abuse, uncomplicated; F15.229 Other stimulant dependence with intoxication, unspecified; Z71.6 Tobacco abuse counseling; F17.211 Nicotine dependence, cigarettes, in remission; Z71.51 Drug abuse counseling and surveillance of drug abuser; F41.9 Anxiety disorder, unspecified; I10 Essential (primary) hypertension; I25.10 Atherosclerotic heart disease of native coronary artery without angina pectoris; T43.621A Poisoning by amphetamines, accidental (unintentional), initial encounter; Z56.0 Unemployment, unspecified; Z59.0 Homelessness; Z79.899 Other long term (current) drug therapy; Z81.8 Family history of other mental and behavioral disorders; Z82.49 Family history of ischemic heart disease and other diseases of the circulatory system; Z82.61 Family history of arthritis; K21.9 Gastro-esophageal reflux disease without esophagitis

== ENCOUNTER 2019-10-18 06:20 | Inpatient (IN) | payer MEDICAID, OTHER ==
--- NOTE | 2019-10-18 06:59 | ED ---
General Adult HPI - General Chief complaint: Psychiatric Symptoms Stated complaint: Suicidal Ideation Time Seen by Provider: 10/18/19 06:29 Source: patient, RN notes reviewed Mode of arrival: ambulatory Limitations: no limitations - History of Present Illness Initial comments: 33-year-old male with a past medical history of CAD, hypertension, hepatitis C, back pain, carpal tunnel, depression and anxiety presents to the emergency department for a chief complaint of suicidal ideation. Patient states he has felt suicidal for about one week. Patient denies any inciting factors of these feelings. Patient is currently homeless. Patient does admit that he has felt suicidal before. Denies a plan for suicide.Patient has no other complaints at this time including shortness of breath, chest pain, abdominal pain, nausea or vomiting, headache, or visual changes. - Related Data Home Medications Medication Instructions Recorded Confirmed No Known Home Medications 10/18/19 10/18/19 Allergies Allergy/AdvReac Type Severity Reaction Status Date / Time No Known Allergies Allergy Verified 10/18/19 07:59 Review of Systems ROS Statement: Those systems with pertinent positive or pertinent negative responses have been documented in the HPI. ROS Other: All systems not noted in ROS Statement are negative. Past Medical History Past Medical History: Coronary Artery Disease (CAD), GERD/Reflux, Hypertension Additional Past Medical History / Comment(s): Hepatitis C, DDD, back pain, bilateral carpel tunnel syndrome. History of Any Multi-Drug Resistant Organisms: None Reported MDRO Source:: unknown Past Surgical History: No Surgical Hx Reported Past Anesthesia/Blood Transfusion Reactions: Unable to Obtain Additional Past Anesthesia/Blood Transfusion Reaction / Comment(s): Pt states he has never had surgery. Past Psychological History: Anxiety, Depression Smoking Status: Current every day smoker - Past Family History Father Family Medical History: Coronary Artery Disease (CAD) Additional Family Medical History / Comment(s): Father is . Mother Family Medical History: Rheumatoid Arthritis (RA) Additional Family Medical History / Comment(s): Mother is . General Exam Limitations: no limitations General appearance: alert, in no apparent distress Head exam: Present: atraumatic, normocephalic, normal inspection Eye exam: Present: normal appearance, PERRL, EOMI. Absent: scleral icterus, conjunctival injection, periorbital swelling ENT exam: Present: normal exam, mucous membranes moist Neck exam: Present: normal inspection, full ROM. Absent: tenderness, meningismus, lymphadenopathy Respiratory exam: Present: normal lung sounds bilaterally. Absent: respiratory distress, wheezes, rales, rhonchi, stridor Cardiovascular Exam: Present: regular rate, normal rhythm, normal heart sounds. Absent: systolic murmur, diastolic murmur, rubs, gallop, clicks GI/Abdominal exam: Present: soft, normal bowel sounds. Absent: distended, tenderness, guarding, rebound, rigid Neurological exam: Present: alert Course Vital Signs 10/18/19 10/18/19 06:23 10:44 Temperature 97.4 F L 98.4 F Pulse Rate 111 H 98 Respiratory 20 18 Rate Blood Pressure 140/88 128/84 O2 Sat by Pulse 100 98 Oximetry Medical Decision Making - Medical Decision Making Patient evaluated by EPS, recommending inpatient admission. - Lab Data Lab Results 10/18/19 Range/Units 06:40 Urine Opiates Screen Not Detected (NotDetected) Ur Oxycodone Screen Not Detected (NotDetected) Urine Methadone Screen Not Detected (NotDetected) Ur Propoxyphene Screen Not Detected (NotDetected) Ur Barbiturates Screen Not Detected (NotDetected) U Tricyclic Antidepress Detected H (NotDetected) Ur Phencyclidine Scrn Not Detected (NotDetected) Ur Amphetamines Screen Not Detected (NotDetected) U Methamphetamines Scrn Not Detected (NotDetected) U Benzodiazepines Scrn Not Detected (NotDetected) Urine Cocaine Screen Not Detected (NotDetected) U Marijuana (THC) Screen Detected H (NotDetected) Disposition Clinical Impression: Suicidal ideation Disposition: TRANSFER TO PSYCH HOSP/UNIT Condition: Fair Is patient prescribed a controlled substance at d/c from ED?: No Time of Disposition: 11:14
[2019-10-18 07:19] LABS: Amphetamine Screen,Urine Not Detected (NotDetected); Barbiturate Screen,Urine Not Detected (NotDetected); Benzodiazepines Screen,Urine Not Detected (NotDetected); Cocaine Screen,Urine Not Detected (NotDetected); Methadone Screen, Urine Not Detected (NotDetected); Opiate Screen,Urine Not Detected (NotDetected); Oxycodone Screen, Urine Not Detected (NotDetected); Phencyclidine Screen,Urine Not Detected (NotDetected); Tricyclic Antidepressant,Urine Detected (NotDetected); Urn Cannabinoid Scrn Detected (NotDetected)
[2019-10-18] MEDS ORDERED: LORazepam 1 MG TAB PO STA (09:48)
[2019-10-18] MEDS ORDERED: MAG HYDROX/AL HYDROX/SIMETH 30 ML CUP PO PRN (11:16)
[2019-10-18] MEDS ORDERED: ACETAMINOPHEN TAB 325 MG TAB PO PRN (11:16)
[2019-10-18] MEDS: NICOTINE 14MG/24HR PATCH TRANSDERM SCH (11:53)
[2019-10-18] MEDS: FAMOTIDINE 20 MG TAB PO SCH ×2 (11:53→20:54)
[2019-10-18] MEDS ORDERED: chlordiazePOXIDE 25 MG CAP PO SCH (13:00)
[2019-10-18] MEDS: hydrOXYzine PAMOATE 25 MG CAP PO PRN ×2 (14:34→20:55)
[2019-10-18] MEDS ORDERED: ZIPRASIDONE 20 MG VIAL IM PRN (15:00)
--- NOTE | 2019-10-18 15:03 | P.HP ---
Psychiatric H&P - . H&P Date: 10/18/19 History & Physical: IDENTIFYING DATA: The patient is a 33-year-old homeless male who presented to the emergency room with complaints of suicidal ideation. HISTORY OF PRESENT ILLNESS: He is well known to mental health services from his prior hospitalizations. He was discharged from our psychiatric unit on 10/10/2019 for residential substance abuse treatment at [facility]. He stated that he left [facility] this Monday AGAINST MEDICAL ADVICE. He alleged that he was unable to concentrate, attend or benefit from the treatment program. He slept one night "in my friend's car"and spent last night in the lobby of the local [facility]. He alleged that he drank once and smoked marijuana since he left [facility]. His UDS was positive for tricyclic antidepressants and marijuana. His BAT was 0. He complained about being homeless and feeling hopeless and helpless. He described feeling depressed, having low energy and having difficulty concentrating. He feels anxious about his living situation but denied persistent or disabling anxiety. He denied auditory, visual or olfactory hallucinations. He denied ideas reference, thought insertion, thought broadcasting or thought control. He described thoughts of suicide and wishes. When asked about suicide plan or intent he talked about cutting himself with a knife. PAST PSYCHIATRIC HISTORY: This is his fifth admission to our psychiatric unit since 2017. His psychiatric diagnoses include major depressive disorder, opiate use disorder, cannabis use disorder, methamphetamine use disorder. He is admitted to other psychiatric hospitals in [place] including [facility]. He has history of noncompliance with treatment and his case had been closed by [facility] due to noncompliance with appointments. PAST MEDICAL HISTORY: His history of coronary artery disease, GERD, hypertension, hepatitis C, degenerative joint disease, carpal tunnel syndrome. ALLERGIES: NO KNOWN DRUG ALLERGIES. SUBSTANCE USE HISTORY: He has history of an opiate use disorder but alleged that he has been abstinent for 1 year (he told the nurse that he had not used heroin for 3 months). He began using heroin when he was 23 years old alleged that he was introduced to heroin by his stepfather. He admitted to having been in treatment programs but could not recall the name of the programs. According to the record he had 2 treatment episode at [facility]. FAMILY PSYCHIATRIC/SUBSTANCE USE HISTORY: He denied history of mental health or substance problems in his family however, the record indicates a family history depression, anxiety as well as substance use problems. SOCIAL HISTORY: His born and raised in [place]. His parents are . He has no contact with his 3 siblings. He is homeless, unemployed and has no income. He's been living in shelters. He is after 3 years. He has no children. 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 According to record he was expelled from school in 11th grade but completed his GED. MENTAL STATUS EXAM: He presented as a disheveled 33-year-old male who had a pill-rolling tremor and a masked facies. He made eye contact and appeared to attend to the interview. The tremor was greater on the left hand on the right. He was alert and knew the name month, year and the name of this facility. He showed marked psychomotor retardation. His gait was slow, steady but without associated movements.. Her speech was spontaneous and decreased rate, rhythm and volume. His affect was flat and unresponsive. He denied suicidal ideation or wishes. He denied homicidal ideation. He expressed feelings of hopeless, helpless or worthless. He denied experiencing ideas reference, paranoid ideation or delusional thoughts. His thinking was concrete but his associations appeared coherent and goal directed he did not express clang associations, neologisms or blocking. He denied hallucinations and did not appear to responding to internal stimuli. Global impression of intellect is average. STRENGTHS: Relatively good health WEAKNESSES: Lack of income, lack of housing, chronic substance abuse, poor comp liance with mental health care. IMPRESSION: He is a 33-year-old single male who presents with complaints of depression and suicidal ideation. He is had multiple admissions to this psychiatric unit for complaints of depression and suicidal ideation. He also has a history of extensive substance abuse problems with alcohol opiates and methamphetamine. He was discharged from this unit 1 week ago for residential substance abuse treatment. He left the program for unexplained reasons and has been homeless. He appears to have very poor problem-solving skills and chronic social issues. He should best be treated inpatient basis with a combination of psychopharmacology and multimodal therapy.. PRINCIPLE DIAGNOSIS: Unspecified depressive disorder, cannabis use disorder, lack of housing, lack of income, opiate use disorder severe, methamphetamine use disorder severe RECOMMENDATION: Admitted to the psychiatric unit. Safety precautions. Consult medicine for initial physical exam and medical history. 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 Ativan 1 mg by mouth 3 times a day when necessary for alcohol withdrawal. Ser oquel 100 mg at bedtime. Geodon 20 mg IM twice a day when necessary for agitation or aggression. Encourage participation in therapeutic groups and activities. Evaluate clinical status response to treatment daily basis. Allergies Allergy/AdvReac Type Severity Reaction Status Date / Time No Known Allergies Allergy Verified 10/18/19 12:43 Vital Signs Temp 97.2 F L 10/18/19 12:33 Pulse 95 10/18/19 12:33 Resp 18 10/18/19 12:33 BP 146/82 10/18/19 12:33 Pulse Ox 98 10/18/19 12:33 Intake & Output 10/17/19 10/18/19 10/18/19 18:59 06:59 18:59 Weight 86.183 kg 86.183 kg Laboratory Last Values Urine Opiates Screen Not Detected (NotDetected) 10/18/19 06:40 Ur Oxycodone Screen Not Detected (NotDetected) 10/18/19 06:40 Urine Methadone Screen Not Detected (NotDetected) 10/18/19 06:40 Ur Propoxyphene Screen Not Detected (NotDetected) 10/18/19 06:40 Ur Barbiturates Screen Not Detected (NotDetected) 10/18/19 06:40 U Tricyclic Antidepress Detected (NotDetected) H 10/18/19 06:40 Ur Phencyclidine Scrn Not Detected (NotDetected) 10/18/19 06:40 Ur Amphetamines Screen Not Detected (NotDetected) 10/18/19 06:40 U Methamphetamines Scrn Not Detected (NotDetected) 10/18/19 06:40 U Benzodiazepines Scrn Not Detected (NotDetected) 10/18/19 06:40 Urine Cocaine Screen Not Detected (NotDetected) 10/18/19 06:40 U Marijuana (THC) Screen Detected (NotDetected) H 10/18/19 06:40 10/18/19 14:46
--- NOTE | 2019-10-18 15:50 | P.HPMEDMHU ---
History of Present Illness H&P Date: 10/18/19 Chief Complaint: depression Patient is a 33-year-old male past medical history of hypertension, GERD, hepatitis C, and chronic back pain who presented with complaints of depression. He was admitted to the mental health unit. At her record review was completed on this patient. It appears that he was here earlier this month and was initially admitted to the medical floor for altered mentation and subsequently underwent mental health evaluation. At that point in time he was found to have significantly elevated liver enzymes which were felt to be likely secondary to alcohol intake. He also had a slightly elevated white blood cell count. In addition the patient was hospitalized here in March 2019 secondary to known bacteremia. At that point in time the patient had left AGAINST MEDICAL ADVICE and never received complete treatment. Patient seen and examined with nursing present. He complains of chronic back pain. He denies any recent cough, cold, fever, flu, nausea, vomiting, diarrhea, or dysuria. He is asking for medications to help his chronic back pain such as [place]. I advised him that he can use Tylenol and Motrin as needed. Review of Systems Pertinent positives and negatives as discussed in HPI, a complete review of systems was performed and all other systems are negative. Past Medical History Past Medical History: GERD/Reflux, Hypertension Additional Past Medical History / Comment(s): Hepatitis C, DDD, back pain, bilateral carpel tunnel syndrome. History of Any Multi-Drug Resistant Organisms: None Reported MDRO Source:: unknown Past Surgical History: No Surgical Hx Reported Past Anesthesia/Blood Transfusion Reactions: Unable to Obtain Additional Past Anesthesia/Blood Transfusion Reaction / Comment(s): Pt states he has never had surgery. Past Psychological History: Anxiety, Depression Additional Psychological History / Comment(s): Homeless, hopeless report "cant stop taking drugs and ETOH. "I dont care if I live. Smoking Status: Current every day smoker Past Alcohol Use History: Occasional Additional Past Alcohol Use History / Comment(s): Pt started smoking in 1993 and smokes 0.5-1ppd. Past Drug Use History: Heroin, IV Drug Use, Marijuana, Methamphetamine Additional Drug Use History / Comment(s): Pt states he uses marijuana occasionally. He uses IV meth occasionally. He states he no longer uses suboxone and last used IV heroin 01/2019. - Past Family History Father Family Medical History: Coronary Artery Disease (CAD) Additional Family Medical History / Comment(s): Father is . Mother Family Medical History: Rheumatoid Arthritis (RA) Additional Family Medical History / Comment(s): Mother is . Medications and Allergies Home Medications Medication Instructions Recorded Confirmed Type No Known Home Medications 10/18/19 10/18/19 History Allergies Allergy/AdvReac Type Severity Reaction Status Date / Time No Known Allergies Allergy Verified 10/18/19 12:43 Physical Exam Osteopathic Statement: *. No significant issues noted on an osteopathic structural exam other than those noted in the History and Physical/Consult. Vitals: Vital Signs Temp Pulse Pulse Resp BP BP Pulse Ox 10/18/19 12:33 97.2 F L 95 18 146/82 98 10/18/19 11:51 98.4 F 98 18 128/84 98 10/18/19 10:44 98.4 F 98 18 128/84 98 10/18/19 06:23 97.4 F L 111 H 20 140/88 100 Intake and Output 10/18/19 10/18/19 10/18/19 06:59 14:59 22:59 Other: Weight 86.183 kg 86.183 kg General: non toxic, no distress, appears at stated age, normal weight Derm: acne across face, chest, and upper back, comodes no unusual ecchymoses, warm, + diaphoretic Head: atraumatic, normocephalic, symmetric Eyes: EOMI, no lid lag, anicteric sclera, pupils equal round reactive to light ENT: Nose and ears atraumatic, no thrush, no pharyngeal erythema Neck: No thyromegaly, no cervical lymphadenopathy, trachea midline, supple Mouth: no lip lesion, mucus membranes moist Cardiovascular: S1S2 reg, no murmur, positive posterior tibial pulse bilateral, no edema, capillary refill less than 2 seconds Lungs: CTA bilateral, no rhonchi, no rales , no accessory muscle use Abdominal: soft, nontender to palpation, no guarding, no appreciable organomegaly, normal bowel sounds Ext: no gross muscle atrophy, muscle strength 5 out of 5 in all 4 extremities grossly, no contractures, Neuro: CN II-XI grossly intact, light touch intact all 4 extremities, finger to nose within normal limits, Psych: Alert, oriented, appropriate affect Cranial Nerve Examination - Cranial Nerves Cranial Nerve II- Optic: Intact Cranial Nerve III- Oculomotor: Intact Cranial Nerve IV- Trochlear: Intact Cranial Nerve V- Trigeminal: Intact Cranial Nerve - Abducens: Intact Cranial Nerve VII- Facial: Intact Cranial Nerve VIII- Auditory: Intact Cranial Nerve IX- Glossopharyngeal: Intact Cranial Nerve X- Vagus: Intact Cranial Nerve XI- Accessory: Intact Cranial Nerve XII- Hypoglossal: Intact Results Labs: Abnormal Lab Results - Last 24 Hours (Table) 10/18/19 Range/Units 06:40 U Tricyclic Antidepress Detected H (NotDetected) U Marijuana (THC) Screen Detected H (NotDetected) Thrombosis Risk Factor Assmnt - DVT/VTE Prophylaxis DVT/VTE Prophylaxis: Low risk, early ambulation encouraged - Choose All That Apply Any of the Below Risk Factors Present?: No Other Risk Factors: No Thrombosis Risk Factor Assessment Level: Very Low Risk Assessment and Plan Assessment: HTN - not taking medication at home - BP fairly well controlled at this time - no indication to start medication at this point in time - follow blood pressure GERD - pepcid HEP C with receently elevated liver enzymes - repeat CMP today to reassess Back pain - alternate tylenol and motrin Tobacco abuse - cessation - nicotine replacement Hx of ETOH abuse - Librium and PO ativan ordered by psych - Thiamine and folic acid HX of bacteremia - this was in march 2019. Patient left AMA before treatment was completed Depression - your psych management Thank you for allowing us to participate in the care of this pleasant patient. Do not hesitate to contact us with questions. Someone can be reached from the [facility] [place] [facility] hospitalist group all hours of the day at [phone] or via perfect serve.
[2019-10-18 16:10] LABS: HGB 13.6 gm/dL (13.0-17.5); MCH 29.3 pg (25.0-35.0); MCHC 33.1 g/dL (31.0-37.0); MCV 88.3 fL (80.0-100.0); Mean Platelet Volume 7.5; Platelet Count 165 k/uL (150-450); RBC 4.65 m/uL (4.30-5.90); RDW 12.2 % (11.5-15.5)
[2019-10-18 16:30] LABS: ALT 410 U/L (21-72); AST 209 U/L (17-59); African American GFR (CKD) >90 (>60 ml/min/1.73 sqM); Albumin 4.2 g/dL (3.5-5.0); Alkaline Phosphatase 47 U/L (38-126); Anion Gap 5 mmol/L; Blood Urea Nitrogen 11 mg/dL (9-20); Calcium 9.7 mg/dL (8.4-10.2); Carbon Dioxide 30 mmol/L (22-30); Chloride 104 mmol/L (98-107); Glucose 84 mg/dL (74-99); Non-African American GFR(CKD) >90 (>60 ml/min/1.73 sqM); Potassium 4.6 mmol/L (3.5-5.1); Sodium 139 mmol/L (137-145); Total Bilirubin 0.5 mg/dL (0.2-1.3); Total Protein 7.9 g/dL (6.3-8.2)
[2019-10-18] MEDS: LORazepam 1 MG TAB PO PRN (17:06)
[2019-10-18] MEDS: QUEtiapine 100 MG TAB PO SCH (20:54)
[2019-10-19] MEDS: NICOTINE 14MG/24HR PATCH TRANSDERM SCH (08:59)
[2019-10-19] MEDS: FAMOTIDINE 20 MG TAB PO SCH ×2 (08:59→20:29)
--- NOTE | 2019-10-19 13:26 | P.PN ---
Progress Note - Text Progress Note Date: 10/19/19 This is a psychiatric progress note as a cross coverage for Dr. Cooper Chief complaint: "I feel relatively better today " Subjective: The patient has been seen today as follow-up, chart reviewed, case discussed with the treatment team. Patient reports home improvement of withdrawal sympt oms after started medication, and he reports better sleep last night. He reports some improvement of his appetite today. He still has symptoms of shakiness and denied sweating. His CIWA score shows improvement. Patient minimizes feeling hopeless and he denies any current suicidal thoughts. He denies any severe mood swings, agitation or homicidal ideation. He denies any current auditory or visual hallucinations, paranoid ideation, and no delusions could be elicited. The patient is compliant with his medications and denies any adverse reactions. Objective: Vitals has been reviewed. Mental status examination; Appearance: The patient appears older than stated age, poorly groomed and dressed, no specific features. Gait/posture: slow it, Normal arm swinging: No abnormal movements. Attitude and behavior: not fully engaged, superficially cooperative, intermittent eye contact. Motor activity: increased psychomotor activity Speech: Normal rate, tone. Mood: depressed, Anxious Affect: Constricted Thought form: goal-directed, linear, coherent. Thought content: Non-delusional, denies suicidal thoughts, denies homicidal thoughts, denies intentions or plans. Perception: Denies any auditory or visual hallucinations Attention: No impairment. Patient was able to repeat serial 5. Orientation: Patient patient was fully oriented to time place person and situation. Insight: Patient has limited insight about his psychiatric disorder. Judgment: Patient has limited judgment about his psychiatric treatment. Assessment: Unspecified depressive disorder. Alcohol use disorder, severe. Methamphetamine use disorder, severe Cannabis use disorder. Opioid use disorder and sustained remission. Plan: Continue inpatient level of care for further stabilization of psychiatric symptoms including depression and suicidal ideation. Continue treatment of alcohol withdrawal and depressive disorder Precautions: Continue 15 minutes check for safety. Consider medical consultation if any acute medical issues arise. Provide the patient individual, group therapy, substance use disorder counseling to give better insight and learn coping skills. Medications: Continue Seroquel at bedtime for mood stabilization. Currently the patient one 50 mg at bedtime. Continue monitoring for alcohol withdrawal and PRN Ativan for severe withdrawal symptoms based on CIWA score. Discharge patient to OUTPATIENT services upon a stabilization
[2019-10-19 14:07] LABS: Hemoglobin A1C 5.4 % (4.0-6.0)
[2019-10-19] MEDS: QUEtiapine 100 MG TAB PO SCH (20:29)
[2019-10-19] MEDS: hydrOXYzine PAMOATE 25 MG CAP PO PRN (20:32)
[2019-10-20] MEDS: NICOTINE 14MG/24HR PATCH TRANSDERM SCH (08:05)
[2019-10-20] MEDS: FAMOTIDINE 20 MG TAB PO SCH ×2 (08:05→20:17)
[2019-10-20] MEDS: hydrOXYzine PAMOATE 25 MG CAP PO PRN ×2 (08:06→13:26)
--- NOTE | 2019-10-20 12:05 | P.PN ---
Progress Note - Text Progress Note Date: 10/20/19 This is a psychiatric progress note as a cross coverage for Dr. Cooper Chief complaint: "I feel OK" Subjective: The patient has been seen today as follow-up, chart reviewed, case discussed with the treatment team. Patient denies withdrawal symptoms after started medication, and continued to have good sleep. He minimized his depression symptoms and he denies suicidal or homicidal ideation. He denies any severe mood swings, agitation or homicidal ideation. He denies any current auditory or visual hallucinations, paranoid ideation, and no delusions could be elicited. The patient is compliant with his medications and denies any adverse reactions. As per CIWA monitoring, the patient continued to have fluctuation of his withdrawal symptoms but no severe withdrawal reported. Reportedly patient slept 8 hours last night. Objective: Vitals has been reviewed. Mental status examination; Appearance: The patient appears older than stated age, poorly groomed and dressed, no specific features. Gait/posture: slow it, Normal arm swinging: No abnormal movements. Attitude and behavior: not fully engaged, superficially cooperative, intermittent eye contact. Motor activity: increased psychomotor activity Speech: Normal rate, tone. Mood: Anxious Affect: Constricted Thought form: goal-directed, linear, coherent. Thought content: Non-delusional, denies suicidal thoughts, denies homicidal thoughts, denies intentions or plans. Perception: Denies any auditory or visual hallucinations Attention: No impairment. Patient was able to repeat serial 5. Orientation: Patient patient was fully oriented to time place person and situation. Insight: Patient has limited insight about his psychiatric disorder. Judgment: Patient has limited judgment about his psychiatric treatment. Assessment: Unspecified depressive disorder. Alcohol use disorder, severe. Methamphetamine use disorder, severe Cannabis use disorder. Opioid use disorder and sustained remission. Plan: Continue inpatient level of care for further stabilization of psychiatric symptoms including depression and suicidal ideation. Continue treatment of alcohol withdrawal and depressive disorder Precautions: Continue 15 minutes check for safety. Consider medical consultation if any acute medical issues arise. Provide the patient individual, group therapy, substance use disorder counseling to give better insight and learn coping skills. Medications: Continue Seroquel at bedtime for mood stabilization. Currently the patient one 50 mg at bedtime. Continue monitoring for alcohol withdrawal and PRN Ativan for severe withdrawal symptoms based on CIWA score. Discharge patient to OUTPATIENT services upon a stabilization
[2019-10-20] MEDS: QUEtiapine 100 MG TAB PO SCH (20:17)
[2019-10-21 06:47] VITALS: TEMP 97.3
[2019-10-21] MEDS: FAMOTIDINE 20 MG TAB PO SCH ×2 (08:53→20:20)
[2019-10-21] MEDS: LORazepam 1 MG TAB PO PRN ×2 (08:53→18:46)
[2019-10-21] MEDS: NICOTINE 14MG/24HR PATCH TRANSDERM SCH (08:53)
[2019-10-21] MEDS: hydrOXYzine PAMOATE 25 MG CAP PO PRN ×2 (11:15→17:04)
--- NOTE | 2019-10-21 14:13 | P.PN ---
Progress Note - Text Progress Note Date: 10/21/19 Clinical Problems: Unspecified depressive disorder, cannabis use disorder, opiate use disorder severe, methamphetamine use disorder severe, lack of housing, lack of income, history of a bipolar illness Interim history: I reviewed the medical record and interviewed the patient. He is a 33-year-old male readmitted 6 days after discharge. As mentioned in the admission history he complained of problems with concentration and attention and left the [facility] treatment program AGAINST MEDICAL ADVICE. He complains of continued feelings depression, hopelessness and helplessness. He has severe social problems including no income and no home. He denied experie ncing current suicidal ideation or wishes. He denied experiencing auditory, visual or olfactory hallucinations, ideas reference, thought insertion etc. He slept 7 hours last night. He has not been participating in therapeutic groups and activities. He spends most of his time alone in his room. He does not interact with staff or peers. I reviewed the last medication reviewe note from [facility] dated 05/02/2019. He was treated with a combination of Depakote ER 500 mg at bedtime, Invega Sustenna 234 mg monthly, Seroquel 100 mg at bedtime and Vistaril 50 mg 3 times a day for the diagnosis of bipolar 1 disorder, opiate use disorder, alcohol use disorder, unspecified stem use disorder, cannabis use disorder. Mental status exam: He presented as disheveled and moderately obese 33-year-old male who was pleasant on approach. He made eye contact and appeared to attend to the interview. He had mild tremor of the hands but no increase muscle tone. He had a flat facial expression. He was alert and oriented to person, place and time. He showed psychomotor retardation. His gait was slow but steady. Her speech was not spontaneous and had decreased rate, rhythm and volume. His affect was flat and unresponsive. He denied current suicidal ideation or wishes. He denied homicidal ideation. He expressed feelings of hopelessness helplessness and worthlessness. He did not express ideas reference, paranoid ideation or delusional thoughts. His thinking was concrete but his associations appeared logical coherent. He did not appear to be respon ding to internal stimuli. Assessment: He has a prominent history of alcohol and drug use problems but his urine drug screen was negative for drugs abuse on presentation to the ER. He continues show marked psychomotor retardation but the tremor and increase muscle tone have improved. He is unable to problem solve regarding his severe and ongoing social problems. Plan: Continue inpatient hospitalization. Continue safety precautions. section gang worker to assist with disposition aftercare. Begin Effexor 37.5 mg daily for the treatment of depressive symptoms. Continue Seroquel 150 mg at bedtime. Encourage participation in therapeutic groups and activities. Evaluate cognitive status response to treatment daily basis.
[2019-10-21] MEDS ORDERED: ONDANSETRON ODT 4 MG TAB PO PRN (14:38)
[2019-10-21] MEDS ORDERED: LOPERAMIDE 2 MG CAP PO PRN (14:39)
[2019-10-21] MEDS ORDERED: cloNIDine HCL 0.1 MG TAB PO PRN (14:39)
[2019-10-21] MEDS ORDERED: LORazepam 1 MG TAB PO PRN (14:40)
[2019-10-21] MEDS: QUEtiapine 100 MG TAB PO SCH (20:20)
[2019-10-22] MEDS: VENLAFAXINE HCL ER 37.5 MG CAP PO SCH (08:52)
[2019-10-22] MEDS: NICOTINE 14MG/24HR PATCH TRANSDERM SCH (08:52)
[2019-10-22] MEDS: FAMOTIDINE 20 MG TAB PO SCH ×2 (08:52→21:18)
--- NOTE | 2019-10-22 14:18 | P.PN ---
Progress Note - Text Progress Note Date: 10/22/19 linical Problems: Unspecified depressive disorder, alcohol withdrawal, cannabis use disorder, opiate use disorder severe, methamphetamine use disorder severe, lack of housing, lack of income, history of a bipolar illness Interim history: I reviewed the medical record and interviewed the patient. Yesterday, he complained of withdrawal symptoms and to CIWA scores were in the 20s. He reported to the nurse that he relapse to alcohol after he left [place]. I reviewed this history and he alleged that he "forgot" to tell me that he relapsed on alcohol. We again reviewed the history since his last discharge. He denied that he drank while he was in [place] (he told the nurse that he was drinking while he was in [place]). He complained of anxiety. He refuses morning dose of Effexor (prescribed for depression and anxiety). He plans to "live with a friend" after his discharge from the hospital. He has no long-term plans to address here his lack of employment, financial problems or homelessness. Mental status exam: He presented as disheveled and moderately obese 33-year-old male who was pleasant on approach. He made eye contact and appeared to attend to the interview. He had mild tremor of the hands but no increase muscle tone. He had a flat facial expression. He was alert and oriented to person, place and time. He showed psychomotor retardation. His gait was slow but steady. Her speech was not spontaneous and had decreased rate, rhythm and volume. His affect was flat and unresponsive. He denied current suicidal ideation or wishes. He denied homicidal ideation. He expressed feelings of hopelessness helplessness and worthlessness. He did not express ideas reference, paranoid ideation or delusional thoughts. His thinking was concrete but his associations appeared logical coherent. He did not appear to be responding to internal stimuli. Assessment: He is giving conflicting histories. He is perseverating on the anxiety and seeking benzodiazepine for complaints of subjective anxiety. Plan: Continue inpatient hospitalization. Continue safety precautions. deer farm worker to assist with disposition aftercare. Continue Effexor 37.5 mg daily for the treatment of depressive symptoms. Continue Seroquel 150 mg at bedtime. Encourage participation in therapeutic groups and activities. Evaluate cognitive status response to treatment daily basis.
[2019-10-22] MEDS: hydrOXYzine PAMOATE 25 MG CAP PO PRN (14:50)
[2019-10-22] MEDS: QUEtiapine 100 MG TAB PO SCH (21:18)
[2019-10-23 07:18] VITALS: BP 105/57; PULSE 78; RESP 16
[2019-10-23] MEDS: NICOTINE 14MG/24HR PATCH TRANSDERM SCH (08:53)
[2019-10-23] MEDS: FAMOTIDINE 20 MG TAB PO SCH (08:53)
[2019-10-23] MEDS: hydrOXYzine PAMOATE 25 MG CAP PO PRN (08:54)
[2019-10-23] MEDS: VENLAFAXINE HCL ER 37.5 MG CAP PO SCH (08:54)
== END 2019-10-23 14:22 | disposition home or self-care (01) | DRG 885 ==
LOC: EC 06:20 → 3MHU 11:05
PROVIDERS: ADMIT Psychiatry & Neurology Psychiatry; ATTEND Psychiatry & Neurology Psychiatry
DX: F31.9 Bipolar disorder, unspecified (principal); F10.239 Alcohol dependence with withdrawal, unspecified; F11.20 Opioid dependence, uncomplicated; F15.20 Other stimulant dependence, uncomplicated; R45.851 Suicidal ideations; Z76.5 Malingerer [conscious simulation]; F12.20 Cannabis dependence, uncomplicated; F17.210 Nicotine dependence, cigarettes, uncomplicated; F41.9 Anxiety disorder, unspecified; I10 Essential (primary) hypertension; I25.10 Atherosclerotic heart disease of native coronary artery without angina pectoris; Z56.0 Unemployment, unspecified; Z59.0 Homelessness; Z79.899 Other long term (current) drug therapy; Z81.8 Family history of other mental and behavioral disorders; Z82.49 Family history of ischemic heart disease and other diseases of the circulatory system; Z91.19 Patient's noncompliance with other medical treatment and regimen; G56.03 Carpal tunnel syndrome, bilateral upper limbs; Z71.6 Tobacco abuse counseling; B19.20 Unspecified viral hepatitis C without hepatic coma
CPT/HCPCS: 80053; 80061; 80306; 82075; 83036; 84443; 85027; 99285

== ENCOUNTER 2019-10-24 00:16 | Emergency (ER) | payer OTHER ==
[2019-10-24] MEDS ORDERED: chlordiazePOXIDE 25 MG CAP PO STA (01:00)
--- NOTE | 2019-10-24 01:02 | ED ---
Psych HPI - General Chief Complaint: Psychiatric Symptoms Stated Complaint: Suicidal Time Seen by Provider: 10/24/19 00:36 Source: patient Mode of arrival: ambulatory - History of Present Illness MD Complaint: feels depressed Onset/Timin -: week(s) Associated Psychiatric Symptoms: depression, suicidal ideation History of same: Yes Quality: constant Improves With: none Worsens With: alcohol Context: recent alcohol abuse Associated Symptoms: denies other symptoms - Related Data Previous Rx's Medication Instructions Recorded Nicotine 14Mg/24Hr Patch [Habitrol] 1 patch TRANSDERM DAILY 28 Days 10/23/19 #28 patch QUEtiapine [SEROquel] 150 mg PO HS 30 Days #45 tab 10/23/19 Venlafaxine HCl ER [Effexor XR] 37.5 mg PO DAILY 30 Days #30 10/23/19 cap.er.24h Ibuprofen [Motrin] 600 mg PO Q8HR PRN #20 tab 10/24/19 Allergies Allergy/AdvReac Type Severity Reaction Status Date / Time No Known Allergies Allergy Verified 10/24/19 00:34 Review of Systems ROS Statement: Those systems with pertinent positive or pertinent negative responses have been documented in the HPI. ROS Other: All systems not noted in ROS Statement are negative. Constitutional: Denies: fever Respiratory: Denies: cough, dyspnea Cardiovascular: Denies: chest pain, palpitations Gastrointestinal: Denies: abdominal pain, vomiting, diarrhea Genitourinary: Denies: dysuria, hematuria Skin: Denies: rash Neurological: Denies: headache, weakness, numbness Past Medical History Past Medical History: GERD/Reflux, Hypertension Additional Past Medical History / Comment(s): Hepatitis C, DDD, back pain, bilateral carpel tunnel syndrome. History of Any Multi-Drug Resistant Organisms: None Reported MDRO Source:: unknown Past Surgical History: No Surgical Hx Reported Past Anesthesia/Blood Transfusion Reactions: Unable to Obtain Additional Past Anesthesia/Blood Transfusion Reaction / Comment(s): Pt states he has never had surgery. Past Psychological History: Anxiety, Depression Smoking Status: Current every day smoker Past Alcohol Use History: Occasional Past Drug Use History: Heroin, IV Drug Use, Marijuana, Methamphetamine - Past Family History Father Family Medical History: Coronary Artery Disease (CAD) Additional Family Medical History / Comment(s): Father is . Mother Family Medical History: Rheumatoid Arthritis (RA) Additional Family Medical History / Comment(s): Mother is . General Exam Limitations: no limitations General appearance: alert, in no apparent distress Head exam: Present: atraumatic, normocephalic Eye exam: Present: normal appearance. Absent: scleral icterus, conjunctival injection ENT exam: Present: normal oropharynx Neck exam: Present: normal inspection Respiratory exam: Present: normal lung sounds bilaterally. Absent: respiratory distress, wheezes, rales, rhonchi, stridor Cardiovascular Exam: Present: regular rate, normal rhythm, normal heart sounds. Absent: systolic murmur, diastolic murmur, rubs, gallop GI/Abdominal exam: Present: soft. Absent: distended, tenderness, guarding, rebound, rigid Extremities exam: Present: normal inspection Neurological exam: Present: alert Psychiatric exam: Present: depressed, suicidal ideation. Absent: agitated, anxious, flat affect, manic, homicidal ideation Skin exam: Present: warm, dry, intact, normal color. Absent: rash Course Vital Signs 10/24/19 10/24/19 00:32 04:19 Temperature 97.7 F Pulse Rate 106 H 100 Respiratory 20 18 Rate Blood Pressure 168/82 126/71 O2 Sat by Pulse 97 97 Oximetry Disposition Clinical Impression: Mood disorder Disposition: HOME SELF-CARE Condition: Good Prescriptions: Ibuprofen [Motrin] 600 mg PO Q8HR PRN #20 tab PRN Reason: Pain Is patient prescribed a controlled substance at d/c from ED?: No Referrals: None,Stated [Primary Care Provider] - 1-2 days
[2019-10-24] MEDS ORDERED: IBUPROFEN 600 MG TAB PO STA (04:01)
[2019-10-24 04:20] VITALS: RESP 18
[2019-10-24 06:16] VITALS: BP 141/87; PULSE 115; TEMP 98.4
== END 2019-10-24 06:16 | disposition home or self-care (01) ==
LOC: EC 00:16
DX: F32.9 Major depressive disorder, single episode, unspecified (principal); R45.851 Suicidal ideations; F17.200 Nicotine dependence, unspecified, uncomplicated
CPT/HCPCS: 99285

== ENCOUNTER 2019-10-24 19:05 | Observation (INO) | payer OTHER ==
[2019-10-24] MEDS ORDERED: NALOXONE 0.4 MG/ML 10 ML VIAL IVP STA (19:24)
[2019-10-24] MEDS ORDERED: SODIUM CHLORIDE 0.9% 1,000 ML IV STA (19:24)
--- NOTE | 2019-10-24 19:28 | ED ---
General Adult HPI - General Chief complaint: Alcohol Stated complaint: ETOH Time Seen by Provider: 10/24/19 19:11 Source: patient, EMS, RN notes reviewed Mode of arrival: EMS Limitations: altered mental status - History of Present Illness Initial comments: Patient is a 34-year-old male presenting to the emergency department with police for alcohol intoxication. Patient was found wandering around with open intoxicant. Patient omits to alcohol consumption. Patient also states he took something else however what he is saying is incomprehensible. Patient is drowsy and has a difficult time providing history. Patient does have reported history of previous alcohol and drug problems. Patient was recently in the emergency department for depression. - Related Data Previous Rx's Medication Instructions Recorded Nicotine 14Mg/24Hr Patch [Habitrol] 1 patch TRANSDERM DAILY 28 Days 10/23/19 #28 patch QUEtiapine [SEROquel] 150 mg PO HS 30 Days #45 tab 10/23/19 Venlafaxine HCl ER [Effexor XR] 37.5 mg PO DAILY 30 Days #30 10/23/19 cap.er.24h Ibuprofen [Motrin] 600 mg PO Q8HR PRN #20 tab 10/24/19 Allergies Allergy/AdvReac Type Severity Reaction Status Date / Time No Known Allergies Allergy Verified 10/24/19 00:34 Review of Systems ROS Statement: Those systems with pertinent positive or pertinent negative responses have been documented in the HPI. ROS Other: All systems not noted in ROS Statement are negative. Limitations: ROS unobtainable due to patients medical condition Past Medical History Past Medical History: GERD/Reflux, Hypertension Additional Past Medical History / Comment(s): Hepatitis C, DDD, back pain, bilateral carpel tunnel syndrome. History of Any Multi-Drug Resistant Organisms: None Reported MDRO Source:: unknown Past Surgical History: No Surgical Hx Reported Past Anesthesia/Blood Transfusion Reactions: Unable to Obtain Additional Past Anesthesia/Blood Transfusion Reaction / Comment(s): Pt states he has never had surgery. Past Psychological History: Anxiety, Depression Smoking Status: Current every day smoker Past Alcohol Use History: Occasional Past Drug Use History: Heroin, IV Drug Use, Marijuana, Methamphetamine - Past Family History Father Family Medical History: Coronary Artery Disease (CAD) Additional Family Medical History / Comment(s): Father is . Mother Family Medical History: Rheumatoid Arthritis (RA) Additional Family Medical History / Comment(s): Mother is . General Exam Limitations: altered mental status General appearance: appears intoxicated, lethargic Head exam: Present: atraumatic, normocephalic Eye exam: Present: normal appearance, PERRL ENT exam: Present: normal oropharynx Neck exam: Present: normal inspection. Absent: tenderness, meningismus Respiratory exam: Present: normal lung sounds bilaterally Cardiovascular Exam: Present: regular rate, normal rhythm GI/Abdominal exam: Present: soft. Absent: tenderness Extremities exam: Present: normal inspection Expanded Neurological exam: Present: protecting the airway Patient oriented to: Present: person Motor strength exam: RUE: 5, LUE: 5, RLE: 5, LLE: 5 Eye Response: (4) open spontaneously Motor Response: (5) localizes to pain Verbal Response: (3) inappropriate words Psychiatric exam: Present: flat affect Skin exam: Present: normal color Course Vital Signs 10/24/19 10/24/19 10/24/19 19:15 19:19 20:02 Pulse Rate 117 H 97 Respiratory 18 14 16 Rate Blood Pressure 127/80 117/60 O2 Sat by Pulse 97 97 Oximetry - Reevaluation(s) Reevaluation #1: 10/24/19 20:29 Patient was reevaluated. No significant improvement with Narcan. 10/24/19 20:49 [facility] has been paged for admission for hospital call. 10/24/19 20:59 Case was discussed with Dr. Lainez, who will admit. Medical Decision Making - Medical Decision Making Patient again reevaluated and somewhat more improved. Patient is able to answer a couple simple questions. Patient also admits to having a proximal he 5-10 Klonopin. Patient denies suicidal ideation or attempt at self-harm. Patient remains drowsy but arousable to voice. Patient updated. - Lab Data Result diagrams: 10/24/19 19:50 10/24/19 19:50 Lab Results 10/24/19 10/24/19 10/24/19 Range/Units 19:24 19:45 19:50 WBC 13.2 H (3.8-10.6) k/uL RBC 4.93 (4.30-5.90) m/uL Hgb 14.3 (13.0-17.5) gm/dL Hct 42.6 (39.0-53.0) % MCV 86.4 (80.0-100.0) fL MCH 28.9 (25.0-35.0) pg MCHC 33.5 (31.0-37.0) g/dL RDW 12.3 (11.5-15.5) % Plt Count 228 (150-450) k/uL Neutrophils % 78 % Lymphocytes % 15 % Monocytes % 5 % Eosinophils % 0 % Basophils % 0 % Neutrophils # 10.2 H (1.3-7.7) k/uL Lymphocytes # 1.9 (1.0-4.8) k/uL Monocytes # 0.6 (0-1.0) k/uL Eosinophils # 0.0 (0-0.7) k/uL Basophils # 0.0 (0-0.2) k/uL Sodium (137-145) mmol/L Potassium (3.5-5.1) mmol/L Chloride (98-107) mmol/L Carbon Dioxide (22-30) mmol/L Anion Gap mmol/L BUN (9-20) mg/dL Creatinine (0.66-1.25) mg/dL Est GFR (CKD-EPI)AfAm (>60 ml/min/1.73 sqM) Est GFR (CKD-EPI)NonAf (>60 ml/min/1.73 sqM) Glucose (74-99) mg/dL POC Glucose (mg/dL) 79 (75-99) mg/dL POC Glu [employer] ID Livan Ventura Calcium (8.4-10.2) mg/dL Phosphorus (2.5-4.5) mg/dL Magnesium (1.6-2.3) mg/dL Total Bilirubin (0.2-1.3) mg/dL AST (17-59) U/L ALT (21-72) U/L Alkaline Phosphatase (38-126) U/L Total Protein (6.3-8.2) g/dL Albumin (3.5-5.0) g/dL Salicylates mg/dL Urine Opiates Screen Detected H (NotDetected) Ur Oxycodone Screen Not Detected (NotDetected) Urine Methadone Screen Not Detected (NotDetected) Ur Propoxyphene Screen Not Detected (NotDetected) Acetaminophen ug/mL Ur Barbiturates Screen Not Detected (NotDetected) U Tricyclic Antidepress Not Detected (NotDetected) Ur Phencyclidine Scrn Not Detected (NotDetected) Ur Amphetamines Screen Not Detected (NotDetected) U Methamphetamines Scrn Not Detected (NotDetected) U Benzodiazepines Scrn Detected H (NotDetected) Urine Cocaine Screen Not Detected (NotDetected) U Marijuana (THC) Screen Not Detected (NotDetected) Serum Alcohol mg/dL 10/24/19 Range/Units 19:50 WBC (3.8-10.6) k/uL RBC (4.30-5.90) m/uL Hgb (13.0-17.5) gm/dL Hct (39.0-53.0) % MCV (80.0-100.0) fL MCH (25.0-35.0) pg MCHC (31.0-37.0) g/dL RDW (11.5-15.5) % Plt Count (150-450) k/uL Neutrophils % % Lymphocytes % % Monocytes % % Eosinophils % % Basophils % % Neutrophils # (1.3-7.7) k/uL Lymphocytes # (1.0-4.8) k/uL Monocytes # (0-1.0) k/uL Eosinophils # (0-0.7) k/uL Basophils # (0-0.2) k/uL Sodium 142 (137-145) mmol/L Potassium 4.6 (3.5-5.1) mmol/L Chloride 108 H (98-107) mmol/L Carbon Dioxide 20 L (22-30) mmol/L Anion Gap 14 mmol/L BUN 18 (9-20) mg/dL Creatinine 0.92 (0.66-1.25) mg/dL Est GFR (CKD-EPI)AfAm >90 (>60 ml/min/1.73 sqM) Est GFR (CKD-EPI)NonAf >90 (>60 ml/min/1.73 sqM) Glucose 71 L (74-99) mg/dL POC Glucose (mg/dL) (75-99) mg/dL POC Glu [employer] [facility] ID Calcium 9.5 (8.4-10.2) mg/dL Phosphorus 4.0 (2.5-4.5) mg/dL Magnesium 2.0 (1.6-2.3) mg/dL Total Bilirubin 0.4 (0.2-1.3) mg/dL AST 178 H (17-59) U/L ALT 415 H (21-72) U/L Alkaline Phosphatase 71 (38-126) U/L Total Protein 8.8 H (6.3-8.2) g/dL Albumin 4.6 (3.5-5.0) g/dL Salicylates <1.0 mg/dL Urine Opiates Screen (NotDetected) Ur Oxycodone Screen (NotDetected) Urine Methadone Screen (NotDetected) Ur Propoxyphene Screen (NotDetected) Acetaminophen <10.0 ug/mL Ur Barbiturates Screen (NotDetected) U Tricyclic Antidepress (NotDetected) Ur Phencyclidine Scrn (NotDetected) Ur Amphetamines Screen (NotDetected) U Methamphetamines Scrn (NotDetected) U Benzodiazepines Scrn (NotDetected) Urine Cocaine Screen (NotDetected) U Marijuana (THC) Screen (NotDetected) Serum Alcohol 274 H* mg/dL Disposition Clinical Impression: Alcoholic intoxication, Benzodiazepine intoxication Disposition: ADMITTED IP TO THIS HOSP Is patient prescribed a controlled substance at d/c from ED?: No Referrals: None,Stated [Primary Care Provider] - 1-2 days Decision Time: 20:47
[2019-10-24 19:47] LABS: Glucose,Whole Blood 79 mg/dL (75-99)
[2019-10-24 20:11] LABS: Amphetamine Screen,Urine Not Detected (NotDetected); Barbiturate Screen,Urine Not Detected (NotDetected); Benzodiazepines Screen,Urine Detected (NotDetected); Cocaine Screen,Urine Not Detected (NotDetected); Methadone Screen, Urine Not Detected (NotDetected); Opiate Screen,Urine Detected (NotDetected); Oxycodone Screen, Urine Not Detected (NotDetected); Phencyclidine Screen,Urine Not Detected (NotDetected); Tricyclic Antidepressant,Urine Not Detected (NotDetected); Urn Cannabinoid Scrn Not Detected (NotDetected)
[2019-10-24 20:17] LABS: Basophils % (A) 0 %; Eosinophils % (A) 0 %; HCT 42.6 % (39.0-53.0); HGB 14.3 gm/dL (13.0-17.5); Lymphocytes # (A) 1.9 k/uL (1.0-4.8); Lymphocytes % (A) 15 %; MCH 28.9 pg (25.0-35.0); MCHC 33.5 g/dL (31.0-37.0); MCV 86.4 fL (80.0-100.0); Mean Platelet Volume 7.3; Monocytes # (A) 0.6 k/uL (0-1.0); Monocytes % (A) 5 %; Neutrophils # (A) 10.2 k/uL (1.3-7.7); Neutrophils % (A) 78 %; Platelet Count 228 k/uL (150-450); RBC 4.93 m/uL (4.30-5.90); RDW 12.3 % (11.5-15.5); WBC 13.2 k/uL (3.8-10.6)
[2019-10-24 20:27] LABS: ALT 415 U/L (21-72); AST 178 U/L (17-59); Acetaminophen <10.0 ug/mL; African American GFR (CKD) >90 (>60 ml/min/1.73 sqM); Albumin 4.6 g/dL (3.5-5.0); Alkaline Phosphatase 71 U/L (38-126); Anion Gap 14 mmol/L; Blood Urea Nitrogen 18 mg/dL (9-20); Calcium 9.5 mg/dL (8.4-10.2); Carbon Dioxide 20 mmol/L (22-30); Chloride 108 mmol/L (98-107); Glucose 71 mg/dL (74-99); Non-African American GFR(CKD) >90 (>60 ml/min/1.73 sqM); Potassium 4.6 mmol/L (3.5-5.1); Salicylate <1.0 mg/dL; Sodium 142 mmol/L (137-145); Total Bilirubin 0.4 mg/dL (0.2-1.3); Total Protein 8.8 g/dL (6.3-8.2)
[2019-10-24 20:36] LABS: Alcohol 274 mg/dL
[2019-10-24] MEDS ORDERED: NALOXONE 0.4 MG/ML 1 ML VIAL IV PRN (20:47)
[2019-10-24] MEDS ORDERED: LORazepam 2 MG/ML INJ IV PRN ×2 (20:49)
[2019-10-24] MEDS ORDERED: THIAMINE 100 MG/ML 2 ML VIAL IM STA (20:49)
[2019-10-24] MEDS: SODIUM CHLORIDE 0.9% 1,000 ML IV SCH (22:13)
--- NOTE | 2019-10-24 23:56 | P.HPIM ---
History of Present Illness H&P Date: 10/24/19 Chief Complaint: Alcohol intoxication 34-year-old male history of depression all call abuse polysubstance abuse Patient brought in by police due to being found intoxicated wandering around. In the ED he was showing signs of alcohol intoxication he briefly answered a few questions to the ER doctor reporting no suicidal ideation and vaguely reported possibly taking some benzos. Patient unable to provide any meaningful history at this time due to alcohol intoxication, history was obtained by reviewing medical records and discussing the case with ER physician Review of Systems ROS unobtainable: due to mental status Past Medical History Past Medical History: GERD/Reflux, Hypertension Additional Past Medical History / Comment(s): Hepatitis C, DDD, back pain, kaylee ateral carpel tunnel syndrome. History of Any Multi-Drug Resistant Organisms: None Reported MDRO Source:: unknown Past Surgical History: No Surgical Hx Reported Past Anesthesia/Blood Transfusion Reactions: Unable to Obtain Additional Past Anesthesia/Blood Transfusion Reaction / Comment(s): Pt states he has never had surgery. Past Psychological History: Anxiety, Depression Smoking Status: Current every day smoker Past Alcohol Use History: Occasional Past Drug Use History: Heroin, IV Drug Use, Marijuana, Methamphetamine - Past Family History Father Family Medical History: Coronary Artery Disease (CAD) Additional Family Medical History / Comment(s): Father is . Mother Family Medical History: Rheumatoid Arthritis (RA) Additional Family Medical History / Comment(s): Mother is . Medications and Allergies Home Medications Medication Instructions Recorded Confirmed Type No Known Home Medications 10/24/19 10/24/19 History Allergies Allergy/AdvReac Type Severity Reaction Status Date / Time No Known Allergies Allergy Verified 10/24/19 21:23 Physical Exam Vitals: Vital Signs Pulse Pulse Resp BP Pulse Ox 10/24/19 23:00 89 16 111/65 98 10/24/19 22:00 97 14 122/82 98 10/24/19 21:00 98 20 117/73 99 10/24/19 20:02 16 10/24/19 19:45 100 12 10/24/19 19:19 97 14 117/60 97 10/24/19 19:15 117 H 18 127/80 97 Intake and Output 10/24/19 10/24/19 10/25/19 14:59 22:59 06:59 Other: Weight 86.183 kg Patient did not cooperate with exam he was resisting opening eyes he did not respond to me or interact with me. 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 Constitutional: No acute distress, sleeping resisting to wake up avoids eye contact when examining the eyes Eyes: Anicteric sclerae, moist conjunctiva, Pupils equal round reactive to light ENMT: NC/AT Resisted opening mouth Neck: Supple, FROM, no masses, or JVD No carotid bruits No thyromegaly Lungs: Clear to auscultation Clear to percussion Normal respiratory effort, no accessory muscle use Cardiovascular: Heart regular in rate and rhythm, No murmurs, gallops, or rubs No peripheral edema Abdominal: Soft Nontender, no guarding, rebound or rigidity Abdomen moving with respiration Normoactive bowel sounds No hepatomegaly, No splenomegaly No palpable mass No abdominal wall hernia noted Skin: Normal temperature, tone, texture, turgor No induration No subcutaneous nodules No rash, lesions No ulcers Extremities: No digital cyanosis No clubbing Pedal pulses intact and symmetrical Radial pulses intact and symmetrical No calf tenderness Psychiatric: Patient sleeping resisting to wake up resisting chapito denies not cooperating with exam Neuro unable to perform neuro exam at this time due to patient not cooperating Lymphatics: no palpable cervical or supraclavicular , or inguinal lymph nodes Results CBC & Chem 7: 10/24/19 19:50 10/24/19 19:50 Labs: Abnormal Lab Results - Last 24 Hours (Table) 10/24/19 10/24/19 10/24/19 Range/Units 19:24 19:50 19:50 WBC 13.2 H (3.8-10.6) k/uL Neutrophils # 10.2 H (1.3-7.7) k/uL Chloride 108 H (98-107) mmol/L Carbon Dioxide 20 L (22-30) mmol/L Glucose 71 L (74-99) mg/dL AST 178 H (17-59) U/L ALT 415 H (21-72) U/L Total Protein 8.8 H (6.3-8.2) g/dL Urine Opiates Screen Detected H (NotDetected) U Benzodiazepines Scrn Detected H (NotDetected) Serum Alcohol 274 H* mg/dL Assessment and Plan Assessment: 34-year-old male with history of depression Comes in today by police due to intoxication with alcohol. Patient unable to provide any meaningful history at this time be admitted for close monitoring until sober due to acute severe alcohol intoxication Anticipated length of stay less than 2 midnights Plan: Acute severe alcohol intoxication, with history of alcohol abuse Admitted for close monitoring until sober IV fluid hydration Seizure and fall precautions Thiamine twice a day Acute alcoholic hepatitis Secondary to alcohol abuse Follow-up liver function Per ED documentation patient denied suicidal ideation Depression, unknown home medications DVT prophylaxis heparin subcu 3 times a day Psych evaluation Preformed a thorough record review from recent hospitalization in the psych unit for depression and suicidal ideation CODE STATUS: Full code Discussed with: Patient, ER, RN Anticipated length of stay less than [address]: Pending psych eval A total of 60* minutes was spent on the care of this complex patient more than 50% of the time was spent in counseling and care coordination.
[2019-10-25 03:11] LABS: Glucose,Whole Blood 64 mg/dL (75-99)
[2019-10-25 03:20] LABS: Glucose,Whole Blood 101 mg/dL (75-99)
[2019-10-25] MEDS: MULTIVITAMINS, THERA 1 EACH TAB PO SCH (08:36)
[2019-10-25] MEDS: THIAMINE 100 MG TAB PO SCH ×2 (08:37→17:32)
[2019-10-25 08:53] LABS: ALT 352 U/L (21-72); AST 153 U/L (17-59); African American GFR (CKD) >90 (>60 ml/min/1.73 sqM); Alcohol 11 mg/dL; Alkaline Phosphatase 48 U/L (38-126); Anion Gap 12 mmol/L; Blood Urea Nitrogen 16 mg/dL (9-20); Calcium 9.3 mg/dL (8.4-10.2); Carbon Dioxide 21 mmol/L (22-30); Chloride 109 mmol/L (98-107); Glucose 78 mg/dL (74-99); Non-African American GFR(CKD) >90 (>60 ml/min/1.73 sqM); Potassium 4.4 mmol/L (3.5-5.1); Sodium 142 mmol/L (137-145); Total Bilirubin 0.4 mg/dL (0.2-1.3); Total Protein 7.7 g/dL (6.3-8.2)
--- NOTE | 2019-10-25 09:52 | P.PN ---
Subjective Progress Note Date: 10/25/19 Patient seen and examined at bedside, the patient with flat affect, appears clammy. Reporting his homeless has been couch surfing for the better part of a year, reporting he has nowhere to go, reports divorce from his former for approximately a year, reports drinking a pint of alcohol daily. 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 still endorsing suicidal ideation Objective - Vital Signs Vital signs: Vital Signs Temp 97.1 F L 10/25/19 06:04 Pulse 100 10/25/19 08:00 Resp 23 10/25/19 08:00 BP 117/63 10/25/19 06:04 Pulse Ox 96 10/25/19 06:04 Intake & Output 10/24/19 10/25/19 10/25/19 18:59 06:59 18:59 Intake Total 800 Balance 800 Weight 85 kg Intake: Oral 800 Other: Voiding Method Toilet Toilet # Voids 1 1 - Exam Constitutional: No acute distress, flat affect clammy Eyes: Anicteric sclerae, moist conjunctiva, no lid-lag, PERRLA ENMT: NC/AT,Oropharynx clear, no erythema, exudates Neck:Supple, FROM, no masses, or JVD, No carotid bruits; No thyromegaly Lungs: Clear to auscultation, Clear to percussion, Normal respiratory effort, no accessory muscle use Cardiovascular: Heart regular in rate and rhythm, No murmurs, gallops, or rubs no peripheral edema Abdominal: Soft Nontender, nom distended, no guarding, no rebound or rigidity, Normoactive bowel sounds No hepatomegaly, No splenomegaly, No palpable mass No abdominal wall hernia noted Skin: Normal temperature, tone, texture, turgor, No induration No subcutaneous nodules, No rash, lesions, No ulcers Extremities:No digital cyanosis No clubbing, Pedal pulses intact and symmetrical Radial pulses intact and symmetrical Normal gait and station, No calf tenderness Psychiatric: Alert and oriented to person, place and time, depressed mood Neuro: Muscles Strength 5/5 in all 4 extremities, Sensation to light touch grossly present throughout, Cranial nerves II-XII grossly intact. No focal sensory deficits - Labs CBC & Chem 7: 10/24/19 19:50 10/25/19 08:15 Labs: Abnormal Lab Results - Last 24 Hours (Table) 10/24/19 10/24/19 10/24/19 Range/Units 19:24 19:50 19:50 WBC 13.2 H (3.8-10.6) k/uL Neutrophils # 10.2 H (1.3-7.7) k/uL Chloride 108 H (98-107) mmol/L Carbon Dioxide 20 L (22-30) mmol/L Glucose 71 L (74-99) mg/dL POC Glucose (mg/dL) (75-99) mg/dL AST 178 H (17-59) U/L ALT 415 H (21-72) U/L Total Protein 8.8 H (6.3-8.2) g/dL Urine Opiates Screen Detected H (NotDetected) U Benzodiazepines Scrn Detected H (NotDetected) Serum Alcohol 274 H* mg/dL 10/25/19 10/25/19 10/25/19 Range/Units 03:07 03:18 08:15 WBC (3.8-10.6) k/uL Neutrophils # (1.3-7.7) k/uL Chloride 109 H (98-107) mmol/L Carbon Dioxide 21 L (22-30) mmol/L Glucose (74-99) mg/dL POC Glucose (mg/dL) 64 L 101 H (75-99) mg/dL AST 153 H (17-59) U/L ALT 352 H (21-72) U/L Total Protein (6.3-8.2) g/dL Urine Opiates Screen (NotDetected) U Benzodiazepines Scrn (NotDetected) Serum Alcohol mg/dL Assessment and Plan Assessment: Acute severe alcohol intoxication, history of alcohol dependence * Admitted for close monitoring until sober * Continue IV fluid hydration * Seizure and fall precautions * Thiamine twice a day Acute alcoholic hepatitis * Secondary to alcohol abuse * Acute hep Panel was negative Per ED documentation patient denied suicidal ideation Depression * Reporting suicidal ideation. Continue safety physician * Psych evaluation DVT prophylaxis heparin subcu 3 times a day Preformed a thorough record review from recent hospitalization in the psych unit for depression and suicidal ideation Disposition * Patient is medically cleared for possible transfer to the mental health unit pending psych evaluation CODE STATUS: Full code Discussed with: Patient, ER, RN Anticipated length of stay less than [address]: Pending psych eval A total of 60* minutes was spent on the care of this complex patient more than 50% of the time was spent in counseling and care coordination.
[2019-10-25] MEDS: LORazepam 2 MG/ML INJ IV PRN (17:32)
[2019-10-25 19:31] LABS: Prothrombin Time 10.7 sec (9.0-12.0)
[2019-10-25 20:48] VITALS: RESP 18
[2019-10-25] MEDS: SODIUM CHLORIDE 0.9% 1,000 ML IV SCH (20:52)
[2019-10-26 04:35] VITALS: BP 124/81; PULSE 65; TEMP 97.8
[2019-10-26] MEDS: MULTIVITAMINS, THERA 1 EACH TAB PO SCH (08:55)
[2019-10-26] MEDS: THIAMINE 100 MG TAB PO SCH (08:55)
--- NOTE | 2019-10-26 11:36 | P.DS ---
Providers Date of admission: 10/24/19 20:47 Expected date of discharge: 10/26/19 Attending physician: Maday Blair MD Consults: 10/24/19 23:56 Consult Physician Routine Consulting Provider: Jose Rafael Cooper Consult Reason/Comments: alcohol abuse, depression Do you want consulting provider notified?: Yes, Notify in am Primary care physician: Stated None Hospital Course: Discharge diagnosis Acute alcohol intoxication Chronic alcohol dependence Acute alcoholic hepatitis Depression with suicidal ideation Hospital course The patient is a 31-year-old male was admitted with acute alcohol intoxication and suicidal ideation. The patient has reported couch surfing for over a year since getting from his and reports drinking a pint of alcohol daily. On presentation his alcohol level was 273 UDS was positive for opiates and benzodiazepines, he had a noted transaminitis of 178/415 AST ALT respectively and PT/INR of 10.7 and 1. patient was started on IV fluid hydration with thiamine and multivitamins and placed on the health and safety technician. He was also initiated on symptom triggered CIWA with withdrawal protocol with PRN Ativan ordered. Psychiatry was consulted to see the patient and recommended inpatient transfer to the psychiatry unit after he was medically cleared. The patient is recommended to continue abstaining from alcohol and to seek sandra atment, he was given contact information for local agencies for alcohol dependence including [place]. This discharge process took approximately 30 minutes. Focused exam Psychiatric: Flat affect/depressed mood, maintaining suicidal ideation Neurologic: Cranial nerves II -12 grossly intact, no focal deficits appreciated Patient Condition at Discharge: Good Plan - Discharge Summary Discharge Rx Participant: Yes New Discharge Prescriptions: New Multivitamins, Thera [Multivitamin (formulary)] 1 each PO DAILY tab Thiamine [Vitamin B-1] 100 mg PO BID-W/MEALS tab Continue Venlafaxine HCl [Effexor] 37.5 mg PO BID Ibuprofen [Motrin] 600 mg PO Q8HR PRN PRN Reason: Pain Control Discharge Medication List Ibuprofen [Motrin] 600 mg PO Q8HR PRN 10/25/19 [History] Venlafaxine HCl [Effexor] 37.5 mg PO BID 10/25/19 [History] Multivitamins, Thera [Multivitamin (formulary)] 1 each PO DAILY tab 10/26/19 [Rx] Thiamine [Vitamin B-1] 100 mg PO BID-W/MEALS tab 10/26/19 [Rx] Follow up Appointment(s)/Referral(s): None,Stated [Primary Care Provider] - 1-2 days Discharge Disposition: TRANSFER TO PSYCH HOSP/UNIT
[2019-10-26] MEDS: LORazepam 2 MG/ML INJ IV PRN (11:48)
== END 2019-10-26 12:30 ==
LOC: EC 19:05 → 4MS4W 20:47 → 3NMEDONC 10-25 01:21 → OBSVTOIN 10-26 11:23 → INTOOBSV 10-26 11:23 → 3MHU 10-26 11:42 → 3NMEDONC 10-26 11:42
PROVIDERS: ADMIT Internal Medicine; ATTEND Internal Medicine
DX: F10.229 Alcohol dependence with intoxication, unspecified (principal); K70.10 Alcoholic hepatitis without ascites; F19.229 Other psychoactive substance dependence with intoxication, unspecified; R45.851 Suicidal ideations; Z59.0 Homelessness; F17.200 Nicotine dependence, unspecified, uncomplicated; K21.9 Gastro-esophageal reflux disease without esophagitis; I10 Essential (primary) hypertension; G56.03 Carpal tunnel syndrome, bilateral upper limbs; F41.9 Anxiety disorder, unspecified; F32.9 Major depressive disorder, single episode, unspecified; M54.9 Dorsalgia, unspecified; Z82.49 Family history of ischemic heart disease and other diseases of the circulatory system; Z82.61 Family history of arthritis; Z79.899 Other long term (current) drug therapy
CPT/HCPCS: 96376 ×2; 96375; 96361; 96372; 96374; 99285; 36415; 80053 ×2; 83735; 84100; 85025; 85610; 80306; 83520; G0378 ×4; G0480 ×3; J2060 ×2; J2310; J3411; 80320; 80329

== ENCOUNTER 2019-10-26 11:57 | Inpatient (IN) | payer MEDICAID ==
[2019-10-26] MEDS ORDERED: LORazepam 1 MG TAB PO PRN (12:31)
[2019-10-26] MEDS ORDERED: MAG HYDROX/AL HYDROX/SIMETH 30 ML CUP PO PRN (12:31)
[2019-10-26] MEDS ORDERED: MAGNESIUM HYDROXIDE 2,400 MG/10 ML CUP PO PRN (12:31)
[2019-10-26] MEDS: LORazepam 1 MG TAB PO PRN ×3 (12:49→20:33)
[2019-10-26] MEDS: NICOTINE 14MG/24HR PATCH TRANSDERM SCH (13:10)
[2019-10-26] MEDS: ACETAMINOPHEN TAB 325 MG TAB PO PRN (13:11)
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
[2019-10-26] MEDS: THIAMINE 100 MG TAB PO SCH (16:17)
[2019-10-26] MEDS ORDERED: QUEtiapine 50 MG TAB PO SCH (21:00)
[2019-10-26] MEDS ORDERED: VENLAFAXINE HCL 37.5 MG TAB PO SCH (21:00)
[2019-10-27] MEDS: THIAMINE 100 MG TAB PO SCH ×2 (09:37→17:20)
[2019-10-27] MEDS: MULTIVITAMINS, THERA 1 EACH TAB PO SCH (09:37)
[2019-10-27] MEDS: NICOTINE 14MG/24HR PATCH TRANSDERM SCH (09:37)
[2019-10-27] MEDS: VENLAFAXINE HCL ER 75 MG CAP PO SCH (09:37)
[2019-10-27] MEDS: LORazepam 1 MG TAB PO PRN ×3 (09:38→18:43)
--- NOTE | 2019-10-27 13:00 | P.PN ---
Progress Note - Text Interval history: The patient is found in his room he follows me to an interview room. He reports that his mood is depressed and anxious. He states that he has a lot of social anxiety. CIWA scores reviewed they have been 0. He did not participate in groups yesterday he is attended no groups this morning. We discussed the importance of him attending groups for evaluation and treatment purposes. He reports no phone calls or visits last evening. He requests that his Seroquel be titrated. He indicates that he didn't sleep well last night as he was frequently waking. Mental status exam: The patient is alert he has a disheveled appearance hygiene is impaired he is dressed in hospital gowns. He demonstrates some psychomotor s lowing. Eye contact is staring in nature. He initiates no conversation but provides brief answers to questions. He reports continued feelings of depression and anxiety he indicates he feels hopeless. He reports ongoing suicidal thoughts he endorses no homicidal ideation intent or plan. He is reporting no auditory or visual hallucinations or any specific delusions. He demonstrates no tangential thinking loose associations or flight of ideas he does not appear hypomanic or manic. Insight and judgment impaired. Plan: The patient's will continue on his current psychotropic medications we w ill titrate the Seroquel 200 mg at bedtime. We will monitor for any alcohol withdrawal symptoms. He strongly encouraged to participate in the milieu. We will discuss his ongoing care during treatment team tomorrow when the community mental health liaison is present.
--- NOTE | 2019-10-27 17:00 | P.HPMEDMHU ---
History of Present Illness H&P Date: 10/27/19 Chief Complaint: depression Patient is a 34-year-old male with past medical history of hypertension, GERD, alcoholic hepatitis, hepatitis C, alcohol abuse, and prior IV drug use currently admitted to the mental health unit for depression. He was recently on the medical floor for alcohol intoxication and alcoholic hepatitis. Patient seen and examined at bedside. Feeling slightly restless today. No chest pain, shortness breath, nausea, vomiting, diarrhea, or constipation. States he is sleeping well. Review of Systems Pertinent positives and negatives as discussed in HPI, a complete review of systems was performed and all other systems are negative. Past Medical History Past Medical History: GERD/Reflux, Hypertension Additional Past Medical History / Comment(s): Hepatitis C, DDD, back pain, bilateral carpel tunnel syndrome. ETOH occassionally drinks 1 5th vodka more than 3 times a week. He reports that he has heart disease that was found when he had kidney problems but he denies having a stress test or cardiac catheterization. History of Any Multi-Drug Resistant Organisms: None Reported MDRO Source:: unknown Past Surgical History: No Surgical Hx Reported Past Anesthesia/Blood Transfusion Reactions: Unable to Obtain Additional Past Anesthesia/Blood Transfusion Reaction / Comment(s): Pt states he has never had surgery. Past Psychological History: Anxiety, Depression Smoking Status: Current every day smoker Past Alcohol Use History: Occasional Additional Past Alcohol Use History / Comment(s): Pt started smoking in 1993 and smokes 0.5-1ppd. and marijuana Past Drug Use History: Heroin, IV Drug Use, Marijuana, Methamphetamine Additional Drug Use History / Comment(s): Pt states he uses marijuana occasionally. Past use heroin, meth, iv drug use. Denies currently - Past Family History Father Family Medical History: Coronary Artery Disease (CAD) Additional Family Medical History / Comment(s): Father is . Mother Family Medical History: Rheumatoid Arthritis (RA) Additional Family Medical History / Comment(s): Mother is . Medications and Allergies Home Medications Medication Instructions Recorded Confirmed Type Ibuprofen [Motrin] 600 mg PO Q8HR PRN 10/25/19 10/26/19 History Venlafaxine HCl [Effexor] 37.5 mg PO BID 10/25/19 10/26/19 History Multivitamins, Thera [Multivitamin 1 each PO DAILY tab 10/26/19 10/26/19 Rx (formulary)] Thiamine [Vitamin B-1] 100 mg PO BID-W/MEALS tab 10/26/19 10/26/19 Rx Allergies Allergy/AdvReac Type Severity Reaction Status Date / Time No Known Allergies Allergy Verified 10/27/19 14:01 Physical Exam Osteopathic Statement: *. No significant issues noted on an osteopathic structural exam other than those noted in the History and Physical/Consult. Vitals: Vital Signs Temp Pulse Resp BP Pulse Ox 10/27/19 14:09 98.7 F 133 H 20 124/79 10/27/19 14:04 133 H 20 124/79 10/27/19 09:40 97.6 F 138 H 20 122/83 98 Intake and Output 10/27/19 10/27/19 10/27/19 06:59 14:59 22:59 Other: Weight 83.3 kg General: non toxic, no distress, appears at stated age, normal weight, disheveled, Derm: Tattoos, no unusual rashes/lesions no unusual ecchymoses, warm, diaphoretic Head: atraumatic, normocephalic, symmetric Eyes: EOMI, no lid lag, anicteric sclera, pupils equal round reactive to light ENT: Nose and ears atraumatic, no thrush, no pharyngeal erythema Neck: No thyromegaly, no cervical lymphadenopathy, trachea midline, supple Mouth: no lip lesion, mucus membranes moist Cardiovascular: S1S2 reg, no murmur, positive posterior tibial pulse bilateral, no edema, capillary refill less than 2 seconds Lungs: Decreased bs bilateral, no rhonchi, no rales , no accessory muscle use Abdominal: soft, nontender to palpation, no guarding, no appreciable organomegaly, normal bowel sounds Ext: no gross muscle atrophy, muscle strength 5 out of 5 in all 4 extremities grossly, no contractures, Neuro: CN II-XI grossly intact, light touch intact all 4 extremities, finger to nose within normal limits, Psych: Alert, oriented, appropriate affect Cranial Nerve Examination - Cranial Nerves Cranial Nerve II- Optic: Intact Cranial Nerve III- Oculomotor: Intact Cranial Nerve IV- Trochlear: Intact Cranial Nerve V- Trigeminal: Intact Cranial Nerve - Abducens: Intact Cranial Nerve VII- Facial: Intact Cranial Nerve VIII- Auditory: Intact Cranial Nerve IX- Glossopharyngeal: Intact Cranial Nerve X- Vagus: Intact Cranial Nerve XI- Accessory: Intact Cranial Nerve XII- Hypoglossal: Intact Thrombosis Risk Factor Assmnt - DVT/VTE Prophylaxis DVT/VTE Prophylaxis: Low risk, early ambulation encouraged - Choose All That Apply Any of the Below Risk Factors Present?: No Other Risk Factors: No Other congenital or acquired thrombophilia - If yes, enter type in comment: No Thrombosis Risk Factor Assessment Level: Very Low Risk Assessment and Plan Assessment: Transaminitis, likely due to Alcoholic hepatitis and Hep C - Down treanding - F/U [facility] and establish with them for further monitoring. GERD -PPI Tobacco abuse - cessation - nicotine replacement Depression - your psych management Thank you for allowing us to participate in the care of this pleasant patient. Do not hesitate to contact us with questions. Someone can be reached from the [facility] hospitalist group all hours of the day at [phone] or via [employer].
[2019-10-27] MEDS: QUEtiapine 200 MG TAB PO SCH (21:23)
[2019-10-28] MEDS: NICOTINE 14MG/24HR PATCH TRANSDERM SCH (09:22)
[2019-10-28] MEDS: LORazepam 1 MG TAB PO PRN ×4 (09:23→21:00)
[2019-10-28] MEDS: PANTOPRAZOLE 40 MG TABLET PO SCH (09:24)
[2019-10-28] MEDS: MULTIVITAMINS, THERA 1 EACH TAB PO SCH (09:24)
[2019-10-28] MEDS: THIAMINE 100 MG TAB PO SCH ×2 (09:24→17:12)
[2019-10-28] MEDS: VENLAFAXINE HCL ER 75 MG CAP PO SCH (09:25)
--- NOTE | 2019-10-28 11:09 | P.PN ---
Progress Note - Text Interval history: The patient is found in his room he follows me to an interview room. He reports his mood is still depressed he feels anxious he still has some suicidal thoughts. He indicates he feels safe in the hospital. He reports attending 1 group yesterday none so far today. He has been eating meals. He has not showered since he's been in the hospital. We discussed the importance of him attending to his ADLs including showering and changing his hospital gowns. We discussed his care during treatment team meeting. This [facility] liaison was asked to look into petitioning him for court ordered substance abuse treatment. We discussed his potential housing options upon discharge which appears to be snf placement only. Status exam: The patient is alert he demonstrates some psychomotor slowing. He has poor hygiene and grooming he is dressed in 2 hospital gowns. He is wearing no socks or shoes. His fingernails and toenails are overgrown. Eye contact is staring in nature. He reports that his mood is depressed and anxious. He reports some continued suicidal ideation. Affect is blunted throughout the session. He initiates no spontaneous conversation he'll provide brief answers to questions asked. He demonstrates no tremor with outstretched arms. He demonstrates no other repetitive involuntary movement. He demonstrates no verbal or physical aggressiveness. Insight and judgment are impaired. Plan: The patient will be continued as current psychotropic medications. We will continue to monitor his vital signs and CIWA scores. Heart rate was elevated. He is using the Ativan as needed. We will continue to explore placement options. He is encouraged to consider inpatient chemical dependency treatment but he refuses. We will explore him using naltrexone. He requires continued psychiatric hospitalization. We will await recommendations from [facility] regarding our request to initiate a petition for chemical dependency treatment.
[2019-10-28] MEDS: ACETAMINOPHEN TAB 325 MG TAB PO PRN (15:10)
[2019-10-28] MEDS: QUEtiapine 200 MG TAB PO SCH (20:58)
[2019-10-29] MEDS: VENLAFAXINE HCL ER 75 MG CAP PO SCH (09:16)
[2019-10-29] MEDS: MULTIVITAMINS, THERA 1 EACH TAB PO SCH (09:16)
[2019-10-29] MEDS: PANTOPRAZOLE 40 MG TABLET PO SCH (09:16)
[2019-10-29] MEDS: THIAMINE 100 MG TAB PO SCH ×2 (09:16→17:00)
[2019-10-29] MEDS: NICOTINE 14MG/24HR PATCH TRANSDERM SCH (09:16)
[2019-10-29] MEDS: LORazepam 1 MG TAB PO PRN ×3 (09:17→20:15)
--- NOTE | 2019-10-29 11:01 | P.PN ---
Progress Note - Text Interval history: The patient's found in his room he follows me to an interview room. He indicates he feels a little better. He has been eating meals he has been sleeping throughout the night. He has not been attending groups despite several prompts. He has no questions or concerns regarding medication. He reports she's been thinking about his parents and his 3 siblings. His siblings all live out of the area his closest one is a sister in [place]. Mental status exam: The patient is alert he is dressed in hospital gowns hygiene is improved he has a disheveled appearance eye contact is staring in nature. He maintains a blunted affect. He initiates no conversation he will answer questions briefly. He shakes his leg during the session. He demonstrates no verbal or physical aggressiveness. He states that suicidal thoughts are becoming less severe. He reports no homicidal ideation intent or plan. He demonstrates no tangential thinking loose associations or flight of ideas. He does not appear hypomanic or manic. Insight and judgment limited. Plan: The patient's will continue on his current psychotropic medication. He does not wish to participate in inpatient chemical dependency treatment. [facility] this [facility]. Vital signs reviewed. His CIWA scores are improving. We will begin reducing the access to the Ativan. We will anticipate discharging him sometime this week once he is clinically stabilized. He is encouraged to participate in the milieu.
[2019-10-29] MEDS: ACETAMINOPHEN TAB 325 MG TAB PO PRN (11:14)
[2019-10-29] MEDS: QUEtiapine 200 MG TAB PO SCH (20:15)
[2019-10-30] MEDS: THIAMINE 100 MG TAB PO SCH ×2 (09:39→17:59)
[2019-10-30] MEDS: MULTIVITAMINS, THERA 1 EACH TAB PO SCH (09:39)
[2019-10-30] MEDS: VENLAFAXINE HCL ER 75 MG CAP PO SCH (09:39)
[2019-10-30] MEDS: NICOTINE 14MG/24HR PATCH TRANSDERM SCH (09:39)
[2019-10-30] MEDS: PANTOPRAZOLE 40 MG TABLET PO SCH (09:39)
[2019-10-30] MEDS: LORazepam 1 MG TAB PO PRN ×2 (09:40→16:48)
--- NOTE | 2019-10-30 11:05 | P.PN ---
Progress Note - Text Interval history: The patient's is found in his room he follows me to an interview room. He indicates his mood is improving. He is eating meals he reports he sleeping at night. He did meet with his community mental health therapist. He indicates they discussed having him participate in the Suboxone program and ways of establishing housing. He [facility] that [facility]. He has no questions or concerns regarding medications. He continues to avoid attending groups. Mental status exam: The patient is dressed in regular clothing, hygiene improved grooming improved. Eye contact is staring in nature. Affect is a little brighter. He mainly response to questions asked. He demonstrates a little more range of affect. He indicates feeling safe. He reports no suicidal or homicidal ideation intent or plan. He is reporting no auditory or visual hallucinations or any specific delusions. He demonstrates no tangential thinking loose associations or flight of ideas. He does not appear to be hypomanic or manic. He demonstrates no verbal or physical aggressiveness. He does demonstrate some repetitive movement of his lower jaw, he indicates that has been present for quite some time. Insight and judgment slowly improving. Plan: The patient is reporting some improvement in mood. We will consider discharging him in the next 1-2 days. We will encourage participation in the milieu we will monitor him for safety. It's most likely that he will need [facility] placement upon discharge. Vital signs reviewed. He is demonstrating no evidence of alcohol withdrawal.
[2019-10-30] MEDS: ACETAMINOPHEN TAB 325 MG TAB PO PRN (15:58)
[2019-10-30] MEDS: QUEtiapine 200 MG TAB PO SCH (20:30)
[2019-10-31] MEDS: THIAMINE 100 MG TAB PO SCH ×2 (08:40→16:52)
[2019-10-31] MEDS: NICOTINE 14MG/24HR PATCH TRANSDERM SCH (08:40)
[2019-10-31] MEDS: PANTOPRAZOLE 40 MG TABLET PO SCH (08:40)
[2019-10-31] MEDS: VENLAFAXINE HCL ER 75 MG CAP PO SCH (08:41)
[2019-10-31] MEDS: MULTIVITAMINS, THERA 1 EACH TAB PO SCH (08:41)
[2019-10-31] MEDS: LORazepam 1 MG TAB PO PRN ×2 (08:42→16:52)
--- NOTE | 2019-10-31 10:51 | P.PN ---
Progress Note - Text Interval history: The patient's found in his room he indicates his moods improving. He is sleeping at night appetite stable. He has not showered. He has not been attending groups. We discussed discharge planning. He has little insight into his need for appropriate placement. Indicates he can stay at a friend's but identifies no individual and has no contact information for any friends. We discussed intermediate placement but it appears unlikely he would go. We discussed his needs during treatment team meeting. It is possible that he could attend [facility] for 1 month. Social work will discuss this with the patient. He has no questions or concerns regarding his psychotropic medication. Mental status exam: The patient is alert he has a disheveled appearance hygiene is impaired. Eye contact is staring in nature. He initiates no conversation he provides brief answers to questions asked. He reports feeling safe in the hospital he reports no homicidal ideation intent or plan. He is endorsing no auditory or visual hallucinations. He is observed isolating in his room throughout the morning. He demonstrates no verbal or physical aggressiveness he demonstrates no involuntary repetitive movements today. Insight and judgment are limited. Affect is bland. Plan: The patient will continue on his current psychotropic medications. We are discussing discharge planning. There is a significant concern that without enough support he will simply relapse with alcohol and presented back to the hospital describing mood symptoms. Social work will assess his willingness to reside at [facility]. [facility] mental [facility] will consider initiating a petition for substance use treatment. Vital signs reviewed. We will monitor him for safety. We will consider discharging him tomorrow.
[2019-10-31] MEDS: ACETAMINOPHEN TAB 325 MG TAB PO PRN (15:05)
[2019-10-31] MEDS: QUEtiapine 200 MG TAB PO SCH (20:01)
--- NOTE | 2019-11-01 08:54 | P.DS ---
Providers Date of admission: 10/26/19 11:57 Expected date of discharge: 11/01/19 Attending physician: Adán Hill Consults: 10/26/19 12:31 Consult Physician Routine Consulting Provider: Doron James Consult Reason/Comments: H&P and medical managment Do you want consulting provider notified?: Yes Primary care physician: Stated None - Discharge Diagnosis(es) (1) Major depressive disorder, recurrent severe without psychotic features Current Visit: Yes Status: Acute Priority: High (2) Alcohol use disorder, severe, dependence Current Visit: Yes Status: Acute Priority: High (3) Cannabis use disorder, moderate, dependence Current Visit: Yes Status: Acute Priority: Medium (4) Opioid use disorder, severe, dependence Current Visit: Yes Status: Acute Priority: High Hospital Course: brief summary of admission note: This patient is a 34-year-old male who was admitted to the mental health unit from the medical floor with suicidal ideation. He had recently been discharged mental health unit he relapsed with alcohol use and presented to the hospital grossly intoxicated and reporting suicidal ideation. He reports that he overdosed with the Effexor XR he did not get the Seroquel filled. He reported feeling depressed and overwhelmed he reported increased feelings of anxiety. For full details please refer to my psychiatric evaluation dated 10/26/2019. Summary of hospital course: The patient was admitted to the mental health unit voluntarily from the medical floor. We reviewed his presenting symptoms and treatment options. We restarted the Effexor XR 75 mg daily Seroquel was titrated 200 mg at bedtime. He was seen by internal medicine for routine history and physical exam. Social work met with the patient to complete a psychosocial assessment and begin discharge planning. The patient poorly attended groups. He did attend meals. He has been compliant with medications. During the course of the hospitalization he has noted a resolution of any suicidal ideation. We made many attempts to offer inpatient chemical dependency treatment but he refuses. He also refuses naltrexone as he states it causes headaches. We discussed his case during treatment team meeting numerous times involving the [facility]. We suggested that the patient be petition for court ordered substance abuse treatment. [facility] will facilitate that. [address] [place] [address] suggested he attend [facility] upon discharge from the hospital and the patient is agreeable.his case burgos did meet with him from [facility]. They discussed having him participate in the Suboxone program. Mental status exam: The patient is alert he is dressed in his own clothing he has a disheveled appearance hygiene is fair. Eye contact is appropriate. He is cooperative he is easily directed. Eye contact is staring in nature. He reports his mood has improved he is reporting no hopelessness thinking he is reporting no suicidal ideation intent or plan. He is reporting no homicidal ideation intent or plan. He reports no auditory or visual hallucinations or any specific delusions and there is no observed evidence of psychosis. He demo nstrates no tangential thinking loose associations or flight of ideas. He does not appear hypomanic or manic. He demonstrates no verbal or physical aggressiveness he demonstrates no involuntary repetitive movements. He is oriented to person place and date. He states that he is willing to be discharged to [facility] he states he is willing to look for employment opportunities. He indicates that he would be willing to attend . Impressions 1.major depressive disorder recurrent severe without psychosis, alcohol use disorder severe, cannabis use disorder moderate, opioid use disorder severe Plan: The patient will be discharged from mental health unit today. It is planned that he will attend [facility] in terms of placement. He will continue on Effexor XR 75 mg daily and Seroquel 200 mg at bedtime. He is instructed to abstain from any use of alcohol marijuana or any illicit drugs as these will precipitate mood symptoms and elevate his safety risk. He has refused inpatient chemical dependency treatment numerous times during this admission. He refuses naltrexone. At this time there is no imminent safety risk he is appropriate for transition back to outpatient care. We have suggested that [facility] petition him for court ordered substance abuse treatment. The patient's instructed to return to the hospital with any acute safety concerns. Patient Condition at Discharge: Stable Plan - Discharge Summary Discharge Rx Participant: No New Discharge Prescriptions: New Venlafaxine HCl ER [Effexor XR] 75 mg PO DAILY #30 cap.er.24h Nicotine 14Mg/24Hr Patch [Habitrol] 1 patch TRANSDERM DAILY #14 patch QUEtiapine [SEROquel] 200 mg PO HS #30 tab Discontinued Venlafaxine HCl [Effexor] 37.5 mg PO BID Ibuprofen [Motrin] 600 mg PO Q8HR PRN PRN Reason: Pain Control Multivitamins, Thera [Multivitamin (formulary)] 1 each PO DAILY tab Thiamine [Vitamin B-1] 100 mg PO BID-W/MEALS tab Discharge Medication List Nicotine 14Mg/24Hr Patch [Habitrol] 1 patch TRANSDERM DAILY #14 patch 11/01/19 [Rx] QUEtiapine [SEROquel] 200 mg PO HS #30 tab 11/01/19 [Rx] Venlafaxine HCl ER [Effexor XR] 75 mg PO DAILY #30 cap.er.24h 11/01/19 [Rx] Follow up Appointment(s)/Referral(s): [facility] [Outside] - 11/05/19 1:00 pm (11-05-19 @ 1:00 with Petra Coelho 11-07-19 @ 3:00 with Carlos Mcgraw (every at 3:00)) Activity/Diet/Wound Care/Special Instructions: Activity and diet as tolerated. Avoid the use of street drugs and alcohol. Take all medications as prescribed. When you are in need of refills on your medications please contact your medical provider and/or outpatient psychiatrist to have this done. Please go to scheduled outpatient appointment for aftercare treatment. If symptoms return or become worse, call the crisis line at [phone] and/or go to the nearest emergency room for evaluation.
[2019-11-01] MEDS: PANTOPRAZOLE 40 MG TABLET PO SCH (09:01)
[2019-11-01] MEDS: MULTIVITAMINS, THERA 1 EACH TAB PO SCH (09:01)
[2019-11-01] MEDS: VENLAFAXINE HCL ER 75 MG CAP PO SCH (09:01)
[2019-11-01] MEDS: THIAMINE 100 MG TAB PO SCH ×2 (09:01→16:45)
[2019-11-01] MEDS: NICOTINE 14MG/24HR PATCH TRANSDERM SCH (09:01)
[2019-11-01] MEDS: LORazepam 1 MG TAB PO PRN ×2 (09:02→16:45)
[2019-11-01] MEDS: ACETAMINOPHEN TAB 325 MG TAB PO PRN (15:31)
[2019-11-01] MEDS: QUEtiapine 200 MG TAB PO SCH (21:13)
[2019-11-02] MEDS: NICOTINE 14MG/24HR PATCH TRANSDERM SCH (08:05)
[2019-11-02] MEDS: LORazepam 1 MG TAB PO PRN ×2 (08:05→19:13)
[2019-11-02] MEDS: MULTIVITAMINS, THERA 1 EACH TAB PO SCH (08:06)
[2019-11-02] MEDS: VENLAFAXINE HCL ER 75 MG CAP PO SCH (08:06)
[2019-11-02] MEDS: PANTOPRAZOLE 40 MG TABLET PO SCH (08:06)
[2019-11-02] MEDS: THIAMINE 100 MG TAB PO SCH ×2 (08:06→17:47)
[2019-11-02 10:59] VITALS: BMI 28.8
[2019-11-02] MEDS: ACETAMINOPHEN TAB 325 MG TAB PO PRN ×2 (11:14→15:28)
[2019-11-02] MEDS ORDERED: ZIPRASIDONE 20 MG VIAL IM STA (12:26)
--- NOTE | 2019-11-02 12:54 | P.PN ---
Progress Note - Text Progress Note Date: 11/02/19 Interval history: Patient was seen wandering the hallways and was agreeable speak to lead technical writer in the office. Patient claims that he is feeling agitated this morning and is up and restless. Patient was requesting to have a when necessary medication and states the Geodon has helped him in the past. Patient claims that he was supposed to go to [facility] however it did not go through for him. He states that he would also be willing to go to his friend's house when he is able to be discharged. Patient claims that he would like to smoke a cigarette but cannot. He states that he has been going to some groups however is following it difficult to concentrate. He admits to irritable mood today and slept well last night. At this time patient denies any suicidal or homicidal ideations intent or plan. Denies any Auditory or visual hallucinations. Patient denies any side effects from the medications and has been compliant with meds. Mental status exam: General Appearance: Patient appears to be stated age is alert, pleasant, and cooperative. Marginal hygiene and grooming. Behavior: Patient appears to be irritable and anxious today however is directable. Speech: Patient's speech is fluent and nonpressured. Mood/Affect: Mood is irritable, affect is congruent and constricted. Suicidality/Homicidality: Patient denies having any suicidal or homicidal ideation intent or plan. Perceptions: Patient denies any auditory or visual hallucinations. Though content/process: There is no evidence of any delusional thought content and thought process is linear and goal-directed. Memory and concentration: AOX3, grossly intact for the purposes of this session Judgment and insight: improving Assessment/Plan: Continue with current diagnosis. Patient continues to meet criteria for inpatient psychiatric admission for symptom stabilization and safety.Patient will be maintained on current psychotropic medication regimen. Will give patient a one time PRN dose of Geodon IM for agitation. Monitor for medication compliance and for any psychotropic medication side effects. Will co ntinue to monitor ongoing response to treatment. We'll continue with likely discharge to [facility] early next week.
[2019-11-02] MEDS: QUEtiapine 200 MG TAB PO SCH (20:01)
[2019-11-03] MEDS: PANTOPRAZOLE 40 MG TABLET PO SCH (09:43)
[2019-11-03] MEDS: NICOTINE 14MG/24HR PATCH TRANSDERM SCH (09:43)
[2019-11-03] MEDS: MULTIVITAMINS, THERA 1 EACH TAB PO SCH (09:43)
[2019-11-03] MEDS: THIAMINE 100 MG TAB PO SCH ×2 (09:43→18:43)
[2019-11-03] MEDS: VENLAFAXINE HCL ER 75 MG CAP PO SCH (09:44)
--- NOTE | 2019-11-03 11:56 | P.PN ---
Progress Note - Text Progress Note Date: 11/03/19 Interval history: Patient was seen wandering the hallways speaking to other patients and was agreeable speak to selling underwriter in the office. patient states that he is feeling much better today and claims that he feels less irritable. He claims that he is trying to distract himself by speaking to other people and claims that his mood has been gradually improving. Patient did however ask selling underwriter if he could get another Geodon injection and was med seeking earlier at the nurse's desk. Patient was asked to work on his coping skills and distraction techniques and also attend groups. He claims that he has been learning a lot from the groups and states that he is ready to be discharged during the week. he states that he slept well last night with no overnight complaints. He claimed to have a fair appetite and fair energy at this time. At this time patient denies any suicidal or homicidal ideations intent or plan. Denies any Auditory or visual hallucinations. Patient denies any side effects from the medications and has been compliant with meds. Mental status exam: General Appearance: Patient appears to be stated age is alert, pleasant, and cooperative. poor hygiene and grooming. Behavior: Patient appears to be somewhat anxious today however is directable.not irritable today Speech: Patient's speech is fluent and nonpressured. Mood/Affect: Mood is mildly improved, affect is congruent and constricted. Suicidality/Homicidality: Patient denies having any suicidal or homicidal id eation intent or plan. Perceptions: Patient denies any auditory or visual hallucinations. Though content/process: There is no evidence of any delusional thought content and thought process is linear and goal-directed. focused on discharge and med seeking. Memory and concentration: AOX3, grossly intact for the purposes of this session Judgment and insight: improving Assessment/Plan: Continue with current diagnosis. Patient continues to meet criteria for inpatient psychiatric admission for symptom stabilization and safety.Patient will be maintained on current psychotropic medication regimen. encouraged patient to work on his coping skills and attend groups. Will hold off on IM injections at this time as patient is clinically stabilizing. Monitor for medication compliance and for any psychotropic medication side effects. Will continue to monitor ongoing response to treatment. We'll continue with likely discharge to [facility] early this week.
[2019-11-03] MEDS: ACETAMINOPHEN TAB 325 MG TAB PO PRN ×2 (12:30→16:19)
[2019-11-03] MEDS: QUEtiapine 200 MG TAB PO SCH (20:05)
[2019-11-04 07:01] VITALS: TEMP 97.7
[2019-11-04] MEDS: VENLAFAXINE HCL ER 75 MG CAP PO SCH (08:17)
[2019-11-04] MEDS: NICOTINE 14MG/24HR PATCH TRANSDERM SCH (08:17)
[2019-11-04] MEDS: MULTIVITAMINS, THERA 1 EACH TAB PO SCH (08:17)
[2019-11-04] MEDS: THIAMINE 100 MG TAB PO SCH (08:17)
[2019-11-04] MEDS: PANTOPRAZOLE 40 MG TABLET PO SCH (08:17)
--- NOTE | 2019-11-04 10:52 | P.DS ---
Providers Date of admission: 10/26/19 11:57 Expected date of discharge: 11/04/19 Attending physician: Adán Hill Consults: 10/26/19 12:31 Consult Physician Routine Consulting Provider: Doron Physician Consult Reason/Comments: H&P and medical managment Do you want consulting provider notified?: Yes Primary care physician: Stated None - Discharge Diagnosis(es) (1) Major depressive disorder, recurrent severe without psychotic features Current Visit: Yes Status: Acute Priority: High (2) Alcohol use disorder, severe, dependence Current Visit: Yes Status: Acute Priority: High (3) Cannabis use disorder, moderate, dependence Current Visit: Yes Status: Acute Priority: Medium (4) Opioid use disorder, severe, dependence Current Visit: Yes Status: Acute Priority: High Hospital Course: brief summary of admission note: This patient is a 34-year-old male who was admitted to the mental health unit from the medical floor with suicidal ideation. He had recently been discharged from the mental health unit but had relapsed with alcohol presented to the hospital grossly intoxicated and reported suicidal ideation. He indicates he overdose with Effexor. He reported feeling depressed and overwhelmed. For full details please refer to my psychiatric evaluation dated 10/26/2019. Summary of hospital course: The patient was scheduled to be discharged Monday. Due to lack of placement the discharge was canceled. He is now scheduled to attend [facility] starting today. Please refer to the discharge summary dated 11/01/2019. Mental status exam: The patient is alert he is dressed in his own clothing hygiene grooming improved. Eye contact is appropriate. Speech is fluent spontaneous nonpressured. He is cooperative and easily directable during the session. He reports that his mood is improved he is reporting no hopeless thoughts he is reporting no suicidal ideation intent or plan. He is reporting no homicidal ideation intent or plan. He reports no auditory or visual hallucinations or any specific delusions and there is no observed evidence of psychosis he demonstrates no tangential thinking loose associations or flight of ideas, he does not appear hypomanic or manic. He demonstrates no verbal or physical aggressiveness he demonstrates no involuntary repetitive movements. He is oriented to person place and date. He demonstrates future oriented thinking. Impressions 1. Major depressive disorder recurrent severe without psychosis, alcohol use disorder severe, cannabis use disorder moderate, opioid use disorder severe Plan: The patient will be discharged from mental health unit today he will attend [facility] in terms of placement. He will continue on Effexor XR 75 mg daily Seroquel 200 mg at bedtime. He is instructed to abstain from any use of alcohol marijuana or any illicit drugs and sees will precipitate mood symptoms and elevate his safety risk. He has refused inpatient chemical dependency treatment numerous times during this admission. He refuses naltrexone. At this time there is no imminent safety risk he is appropriate for continued care as outpatient. He is instructed to return to the hospital if any acute safety concerns. We have suggested that [facility] petition him for court ordered substance abuse treatment. Patient Condition at Discharge: Stable Plan - Discharge Summary Discharge Rx Participant: No New Discharge Prescriptions: New Venlafaxine HCl ER [Effexor XR] 75 mg PO DAILY #30 cap.er.24h Nicotine 14Mg/24Hr Patch [Habitrol] 1 patch TRANSDERM DAILY #14 patch QUEtiapine [SEROquel] 200 mg PO HS #30 tab Discontinued Venlafaxine HCl [Effexor] 37.5 mg PO BID Ibuprofen [Motrin] 600 mg PO Q8HR PRN PRN Reason: Pain Control Multivitamins, Thera [Multivitamin (formulary)] 1 each PO DAILY tab Thiamine [Vitamin B-1] 100 mg PO BID-W/MEALS tab Discharge Medication List Nicotine 14Mg/24Hr Patch [Habitrol] 1 patch TRANSDERM DAILY #14 patch 11/01/19 [Rx] QUEtiapine [SEROquel] 200 mg PO HS #30 tab 11/01/19 [Rx] Venlafaxine HCl ER [Effexor XR] 75 mg PO DAILY #30 cap.er.24h 11/01/19 [Rx] Follow up Appointment(s)/Referral(s): [facility] [Outside] - 11/05/19 1:00 pm (11-05-19 @ 1:00 with Petra Coelho 11-07-19 @ 3:00 with Carlos Mcgraw (every at 3:00)) [facility] [NON-STAFF] - 1 Week Patient Instructions/Handouts: Depression (DC), Alcohol Intoxication (DC) Activity/Diet/Wound Care/Special Instructions: Activity and diet as tolerated. Avoid the use of street drugs and alcohol. Take all medications as prescribed. When you are in need of refills on your medications please contact your medical provider and/or outpatient psychiatrist to have this done. Please go to scheduled outpatient appointment for aftercare treatment. If symptoms return or become worse, call the crisis line at and/or go to the nearest emergency room for evaluation.
[2019-11-04] MEDS: LORazepam 1 MG TAB PO PRN (11:36)
[2019-11-04] MEDS: ACETAMINOPHEN TAB 325 MG TAB PO PRN ×2 (11:36→15:56)
[2019-11-04 11:38] VITALS: BP 132/82; PULSE 115; RESP 20
== END 2019-11-04 07:00 | DRG 885 ==
LOC: 3MHU 11:57
PROVIDERS: ADMIT Psychiatry & Neurology Psychiatry; ATTEND Psychiatry & Neurology Psychiatry
DX: F33.2 Major depressive disorder, recurrent severe without psychotic features (principal); F11.20 Opioid dependence, uncomplicated; R45.851 Suicidal ideations; F10.20 Alcohol dependence, uncomplicated; F12.20 Cannabis dependence, uncomplicated; F40.10 Social phobia, unspecified; F41.9 Anxiety disorder, unspecified; Z79.899 Other long term (current) drug therapy

== ENCOUNTER 2019-12-10 17:49 | Emergency (ER) | payer OTHER ==
[2019-12-10] MEDS ORDERED: SODIUM CHLORIDE 0.9% 1,000 ML IV ONE ×3 (18:11→19:08)
[2019-12-10 18:14] LABS: Glucose,Whole Blood 76 mg/dL (75-99)
--- NOTE | 2019-12-10 18:17 | ED ---
Altered Mental Status HPI - General Source: patient, RN notes reviewed, old records reviewed Mode of arrival: EMS Limitations: altered mental status <Diane King - Last Filed: 12/11/19 02:26> <Moe Ellington - Last Filed: 12/11/19 08:52> - General Chief Complaint: Altered Mental Status Stated Complaint: Altered Mental status Time Seen by Provider: 12/10/19 18:00 - History of Present Illness Initial Comments: Patient is a 34-year-old male presents today for evaluation for altered mental status. Patient was found via EMS at [facility]. He has had some confused state. Patient reports that he did take methamphetamine today. Has a history of drug abuse disorder. He denies any other drugs. Patient denies any falls. He states he is currently homeless. Patient denies any pain at this time. He states he is not suicidal. (iDane King) - Related Data Previous Rx's Medication Instructions Recorded Nicotine 14Mg/24Hr Patch [Habitrol] 1 patch TRANSDERM DAILY #14 patch 11/01/19 QUEtiapine [SEROquel] 200 mg PO HS #30 tab 11/01/19 Venlafaxine HCl ER [Effexor XR] 75 mg PO DAILY #30 cap.er.24h 11/01/19 Allergies Allergy/AdvReac Type Severity Reaction Status Date / Time No Known Allergies Allergy Verified 10/27/19 14:01 Review of Systems ROS Other: All systems not noted in ROS Statement are negative. <Diane King - Last Filed: 12/11/19 02:26> ROS Other: All systems not noted in ROS Statement are negative. <Moe Ellington - Last Filed: 12/11/19 08:52> ROS Statement: Those systems with pertinent positive or pertinent negative responses have been documented in the HPI. Past Medical History Past Medical History: GERD/Reflux, Hypertension Additional Past Medical History / Comment(s): Hepatitis C, DDD, back pain, bilateral carpel tunnel syndrome. ETOH occassionally drinks 1 5th vodka more darci n 3 times a week. He reports that he has heart disease that was found when he had kidney problems but he denies having a stress test or cardiac catheterization. History of Any Multi-Drug Resistant Organisms: None Reported MDRO Source:: unknown Past Surgical History: No Surgical Hx Reported Past Anesthesia/Blood Transfusion Reactions: Unable to Obtain Additional Past Anesthesia/Blood Transfusion Reaction / Comment(s): Pt states he has never had surgery. Past Psychological History: Anxiety, Depression Smoking Status: Current every day smoker Past Alcohol Use History: Occasional Past Drug Use History: Heroin, IV Drug Use, Marijuana, Methamphetamine - Past Family History Father Family Medical History: Coronary Artery Disease (CAD) Additional Family Medical History / Comment(s): Father is . Mother Family Medical History: Rheumatoid Arthritis (RA) Additional Family Medical History / Comment(s): Mother is . <Diane King - Last Filed: 12/11/19 02:26> General Exam Limitations: altered mental status General appearance: alert, in no apparent distress Head exam: Present: atraumatic, normocephalic, normal inspection Eye exam: Present: normal appearance, PERRL, EOMI. Absent: scleral icterus, conjunctival injection, periorbital swelling ENT exam: Present: normal exam, mucous membranes moist Neck exam: Present: normal inspection. Absent: tenderness, meningismus, lymphadenopathy Respiratory exam: Present: normal lung sounds bilaterally. Absent: respiratory distress, wheezes, rales, rhonchi, stridor Cardiovascular Exam: Present: regular rate, normal rhythm, normal heart sounds. Absent: systolic murmur, diastolic murmur, rubs, gallop, clicks GI/Abdominal exam: Present: soft, normal bowel sounds. Absent: distended, tenderness, guarding, rebound, rigid Extremities exam: Present: normal inspection, full ROM, normal capillary refill. Absent: tenderness, pedal edema, joint swelling, calf tenderness Back exam: Present: normal inspection Neurological exam: Present: alert, CN II-XII intact Expanded Patient oriented to: Present: person, place. Absent: time Cranial nerves: EOM's Intact: Normal Cerebellar function: Finger to Nose: Normal Upper motor neuron: Pronator Drift: Normal Sensory exam: Upper Extremity Light Touch: Normal, Lower Extremity Light Touch: Normal Motor strength exam: RUE: 5, LUE: 5, RLE: 5, LLE: 5 Eye Response: (4) open spontaneously Motor Response: (6) obeys commands Verbal Response: (4) confused conversation (somewhat confused and delayed response to conversation) Psychiatric exam: Present: normal affect, normal mood <Diane King - Last Filed: 12/11/19 02:26> - General Exam Comments Initial Comments: Patient is a 34-year-old male. Alert and oriented 2. knows name, location. Was able to tell day but not month or year. (Diane King) Course <Diane King - Last Filed: 12/11/19 02:26> Vital Signs 12/10/19 12/10/19 12/11/19 17:51 21:19 00:19 Temperature 98.6 F 98.0 F Pulse Rate 98 78 68 Respiratory 17 18 18 Rate Blood Pressure 165/103 142/99 133/86 O2 Sat by Pulse 99 98 100 Oximetry 12/11/19 12/11/19 01:42 06:00 Temperature 98 F Pulse Rate 68 77 Respiratory 18 18 Rate Blood Pressure 133/93 141/85 O2 Sat by Pulse 99 98 Oximetry - Reevaluation(s) Reevaluation #1: 12/10/19 22:51 Patient was ambulating, determine if she is cleared to be discharged and stated that he is suicidal. Patient's blindness removed and EPS was contacted and Patient will be evaluated. He is alert and oriented 3 at this time. (Diane King) Medical Decision Making - Lab Data Result diagrams: 12/10/19 18:09 12/10/19 18:09 - Radiology Data Radiology results: report reviewed <Diane King - Last Filed: 12/11/19 02:26> - Lab Data Result diagrams: 12/10/19 18:09 12/10/19 18:09 <Moe Ellington - Last Filed: 12/11/19 08:52> - Medical Decision Making 34-year-old male presents today for altered mental status. Was found at [email or web address]. He reports that he used methamphetamine. Here to emergency department somewhat confused state. Full workup obtained including blood work. Labs are relatively unremarkable. He does have some elevated transaminases but that is been stable. Urine drug screen positive for opiates, TCAs and marijuana. Patient was held in emergency department, and became more clear minded. When attempted to ambulate Patient on discharge she did say that he was now suicidal. I contacted EPS and Patient was evaluated. They do plan to have the Patient evaluated first thing tomorrow morning with mobile crisis unit to set up outpatient treatment for substance abuse. Patient will remain in the emergency department until the morning until seen by mobile crisis unit. (Diane King) She is seen and evaluated at bedside. She was signed out to me pending mobile crisis recommendations. Major evaluated patient and I bedside recommended safety planning and discharge area patient states he will comply. Patient reports that he is so anxious and wants his Xanax. He is well-appearing and not showing any signs of anxiety reaction. Patient exhibiting drug-seeking behavior. Patient will be discharged. Patient's blood glucose was trended and found to be stable. Patient tolerating oral intake. He will be discharged. (Moe Ellington) - Lab Data Lab Results 12/10/19 12/10/19 12/10/19 Range/Units 17:54 18:09 18:09 WBC 7.5 (3.8-10.6) k/uL RBC 4.79 (4.30-5.90) m/uL Hgb 13.5 (13.0-17.5) gm/dL Hct 41.3 (39.0-53.0) % MCV 86.1 (80.0-100.0) fL MCH 28.1 (25.0-35.0) pg MCHC 32.6 (31.0-37.0) g/dL RDW 13.9 (11.5-15.5) % Plt Count 187 (150-450) k/uL Neutrophils % 63 % Lymphocytes % 26 % Monocytes % 6 % Eosinophils % 1 % Basophils % 2 % Neutrophils # 4.7 (1.3-7.7) k/uL Lymphocytes # 1.9 (1.0-4.8) k/uL Monocytes # 0.4 (0-1.0) k/uL Eosinophils # 0.1 (0-0.7) k/uL Basophils # 0.1 (0-0.2) k/uL Sodium (137-145) mmol/L Potassium (3.5-5.1) mmol/L Chloride (98-107) mmol/L Carbon Dioxide (22-30) mmol/L Anion Gap mmol/L BUN (9-20) mg/dL Creatinine (0.66-1.25) mg/dL Est GFR (CKD-EPI)AfAm (>60 ml/min/1.73 sqM) Est GFR (CKD-EPI)NonAf (>60 ml/min/1.73 sqM) Glucose (74-99) mg/dL POC Glucose (mg/dL) 76 (75-99) mg/dL POC Glu Environmental Health Officer ID Christa Moreno Plasma Lactic Acid Sohail 1.5 (0.7-2.0) mmol/L Calcium (8.4-10.2) mg/dL Total Bilirubin (0.2-1.3) mg/dL AST (17-59) U/L ALT (4-49) U/L Alkaline Phosphatase (38-126) U/L Ammonia 16 (<30) umol/L Troponin I (0.000-0.034) ng/mL Total Protein (6.3-8.2) g/dL Albumin (3.5-5.0) g/dL Urine Color Urine Appearance (Clear) Urine pH (5.0-8.0) Ur Specific [place] (1.001-1.035) Urine Protein (Negative) Urine Glucose (UA) (Negative) Urine Ketones (Negative) Urine Blood (Negative) Urine Nitrite (Negative) Urine Bilirubin (Negative) Urine Urobilinogen (<2.0) mg/dL Ur Leukocyte Esterase (Negative) Urine Opiates Screen (NotDetected) Ur Oxycodone Screen (NotDetected) Urine Methadone Screen (NotDetected) Ur Propoxyphene Screen (NotDetected) Ur Barbiturates Screen (NotDetected) U Tricyclic Antidepress (NotDetected) Ur Phencyclidine Scrn (NotDetected) Ur Amphetamines Screen (NotDetected) U Methamphetamines Scrn (NotDetected) U Benzodiazepines Scrn (NotDetected) Urine Cocaine Screen (NotDetected) U Marijuana (THC) Screen (NotDetected) Serum Alcohol mg/dL 12/10/19 12/10/19 12/10/19 Range/Units 18:09 18:09 18:09 WBC (3.8-10.6) k/uL RBC (4.30-5.90) m/uL Hgb (13.0-17.5) gm/dL Hct (39.0-53.0) % MCV (80.0-100.0) fL MCH (25.0-35.0) pg MCHC (31.0-37.0) g/dL RDW (11.5-15.5) % Plt Count (150-450) k/uL Neutrophils % % Lymphocytes % % Monocytes % % Eosinophils % % Basophils % % Neutrophils # (1.3-7.7) k/uL Lymphocytes # (1.0-4.8) k/uL Monocytes # (0-1.0) k/uL Eosinophils # (0-0.7) k/uL Basophils # (0-0.2) k/uL Sodium 142 (137-145) mmol/L Potassium 4.2 (3.5-5.1) mmol/L Chloride 114 H (98-107) mmol/L Carbon Dioxide 22 (22-30) mmol/L Anion Gap 6 mmol/L BUN 12 (9-20) mg/dL Creatinine 0.84 (0.66-1.25) mg/dL Est GFR (CKD-EPI)AfAm >90 (>60 ml/min/1.73 sqM) Est GFR (CKD-EPI)NonAf >90 (>60 ml/min/1.73 sqM) Glucose 79 (74-99) mg/dL POC Glucose (mg/dL) (75-99) mg/dL POC Glu Environmental Health Officer ID Plasma Lactic Acid Sohail (0.7-2.0) mmol/L Calcium 8.9 (8.4-10.2) mg/dL Total Bilirubin 0.3 (0.2-1.3) mg/dL AST 142 H (17-59) U/L ALT 408 H (4-49) U/L Alkaline Phosphatase 56 (38-126) U/L Ammonia (<30) umol/L Troponin I <0.012 (0.000-0.034) ng/mL Total Protein 8.2 (6.3-8.2) g/dL Albumin 4.2 (3.5-5.0) g/dL Urine Color Urine Appearance (Clear) Urine pH (5.0-8.0) Ur Specific [place] (1.001-1.035) Urine Protein (Negative) Urine Glucose (UA) (Negative) Urine Ketones (Negative) Urine Blood (Negative) Urine Nitrite (Negative) Urine Bilirubin (Negative) Urine Urobilinogen (<2.0) mg/dL Ur Leukocyte Esterase (Negative) Urine Opiates Screen (NotDetected) Ur Oxycodone Screen (NotDetected) Urine Methadone Screen (NotDetected) Ur Propoxyphene Screen (NotDetected) Ur Barbiturates Screen (NotDetected) U Tricyclic Antidepress (NotDetected) Ur Phencyclidine Scrn (NotDetected) Ur Amphetamines Screen (NotDetected) U Methamphetamines Scrn (NotDetected) U Benzodiazepines Scrn (NotDetected) Urine Cocaine Screen (NotDetected) U Marijuana (THC) Screen (NotDetected) Serum Alcohol <10 mg/dL 12/10/19 12/11/19 Range/Units 18:50 05:49 WBC (3.8-10.6) k/uL RBC (4.30-5.90) m/uL Hgb (13.0-17.5) gm/dL Hct (39.0-53.0) % MCV (80.0-100.0) fL MCH (25.0-35.0) pg MCHC (31.0-37.0) g/dL RDW (11.5-15.5) % Plt Count (150-450) k/uL Neutrophils % % Lymphocytes % % Monocytes % % Eosinophils % % Basophils % % Neutrophils # (1.3-7.7) k/uL Lymphocytes # (1.0-4.8) k/uL Monocytes # (0-1.0) k/uL Eosinophils # (0-0.7) k/uL Basophils # (0-0.2) k/uL Sodium (137-145) mmol/L Potassium (3.5-5.1) mmol/L Chloride (98-107) mmol/L Carbon Dioxide (22-30) mmol/L Anion Gap mmol/L BUN (9-20) mg/dL Creatinine (0.66-1.25) mg/dL Est GFR (CKD-EPI)AfAm (>60 ml/min/1.73 sqM) Est GFR (CKD-EPI)NonAf (>60 ml/min/1.73 sqM) Glucose (74-99) mg/dL POC Glucose (mg/dL) 87 (75-99) mg/dL POC Glu Environmental Health Officer ID Ghada Lieberman Plasma Lactic Acid Sohail (0.7-2.0) mmol/L Calcium (8.4-10.2) mg/dL Total Bilirubin (0.2-1.3) mg/dL AST (17-59) U/L ALT (4-49) U/L Alkaline Phosphatase (38-126) U/L Ammonia (<30) umol/L Troponin I (0.000-0.034) ng/mL Total Protein (6.3-8.2) g/dL Albumin (3.5-5.0) g/dL Urine Color Light Yellow Urine Appearance Clear (Clear) Urine pH 5.5 (5.0-8.0) Ur Specific Petty 1.010 (1.001-1.035) Urine Protein Negative (Negative) Urine Glucose (UA) Negative (Negative) Urine Ketones Negative (Negative) Urine Blood Negative (Negative) Urine Nitrite Negative (Negative) Urine Bilirubin Negative (Negative) Urine Urobilinogen <2.0 (<2.0) mg/dL Ur Leukocyte Esterase Negative (Negative) Urine Opiates Screen Detected H (NotDetected) Ur Oxycodone Screen Not Detected (NotDetected) Urine Methadone Screen Not Detected (NotDetected) Ur Propoxyphene Screen Not Detected (NotDetected) Ur Barbiturates Screen Not Detected (NotDetected) U Tricyclic Antidepress Detected H (NotDetected) Ur Phencyclidine Scrn Not Detected (NotDetected) Ur Amphetamines Screen Not Detected (NotDetected) U Methamphetamines Scrn Not Detected (NotDetected) U Benzodiazepines Scrn Not Detected (NotDetected) Urine Cocaine Screen Not Detected (NotDetected) U Marijuana (THC) Screen Detected H (NotDetected) Serum Alcohol mg/dL - Radiology Data CT of the brain is negative for any acute intracranial process. Evidence of left side sinusitis. Chest x-ray shows no acute cardiopulmonary disease. (Diane King) Disposition <Diane King - Last Filed: 12/11/19 02:26> Is patient prescribed a controlled substance at d/c from ED?: No Time of Disposition: 08:52 <Moe Ellington - Last Filed: 12/11/19 08:52> Clinical Impression: Suicidal ideation Disposition: HOME SELF-CARE Condition: Good Instructions (If sedation given, give patient instructions): Altered Mental Status (ED), Help Prevent Suicide (ED) Additional Instructions: You were evaluated by mobile crisis unit. They provided you recommendations that we urged to to comply with. Referrals: None,Stated [Primary Care Provider] - 1-2 days
[2019-12-10 18:25] LABS: Basophils # (A) 0.1 k/uL (0-0.2); Basophils % (A) 2 %; Eosinophils # (A) 0.1 k/uL (0-0.7); Eosinophils % (A) 1 %; HCT 41.3 % (39.0-53.0); HGB 13.5 gm/dL (13.0-17.5); Lymphocytes # (A) 1.9 k/uL (1.0-4.8); Lymphocytes % (A) 26 %; MCH 28.1 pg (25.0-35.0); MCHC 32.6 g/dL (31.0-37.0); MCV 86.1 fL (80.0-100.0); Mean Platelet Volume 8.7; Monocytes # (A) 0.4 k/uL (0-1.0); Monocytes % (A) 6 %; Neutrophils # (A) 4.7 k/uL (1.3-7.7); Neutrophils % (A) 63 %; Platelet Count 187 k/uL (150-450); RBC 4.79 m/uL (4.30-5.90); RDW 13.9 % (11.5-15.5); WBC 7.5 k/uL (3.8-10.6)
[2019-12-10 18:33] LABS: Lactic Acid, Venous 1.5 mmol/L (0.7-2.0)
[2019-12-10 18:34] LABS: ALT 408 U/L (4-49); AST 142 U/L (17-59); African American GFR (CKD) >90 (>60 ml/min/1.73 sqM); Albumin 4.2 g/dL (3.5-5.0); Alkaline Phosphatase 56 U/L (38-126); Anion Gap 6 mmol/L; Blood Urea Nitrogen 12 mg/dL (9-20); Calcium 8.9 mg/dL (8.4-10.2); Carbon Dioxide 22 mmol/L (22-30); Chloride 114 mmol/L (98-107); Glucose 79 mg/dL (74-99); Non-African American GFR(CKD) >90 (>60 ml/min/1.73 sqM); Potassium 4.2 mmol/L (3.5-5.1); Sodium 142 mmol/L (137-145); Total Bilirubin 0.3 mg/dL (0.2-1.3); Total Protein 8.2 g/dL (6.3-8.2)
--- NOTE | 2019-12-10 19:03 | CT ---
EXAMINATION TYPE: CT brain wo con DATE OF EXAM: 12/10/2019 COMPARISON: None HISTORY: ams CT DLP: 1142.4 mGycm Automated exposure control for dose reduction was used. Ventricles and sulci appear normal. There is no mass effect nor midline shift. There is no sign of in tracranial hemorrhage. Calvarium is intact. There is mucus retention cyst left maxillary sinus. There is mucosal thickening left side sphenoid sinus. IMPRESSION: Normal CT scan of the brain. Left side sinusitis.
--- NOTE | 2019-12-10 19:04 | XR ---
EXAMINATION TYPE: XR chest 2V DATE OF EXAM: 12/10/2019 COMPARISON: 10/01/2019 HISTORY: Possible overdose. Fall TECHNIQUE: FINDINGS: Heart and mediastinum are normal. Lungs are clear. Diaphragm is normal. Bony thorax appears normal. IMPRESSION: Normal chest. No change.
[2019-12-10 19:29] LABS: Appearance,Urine Clear (Clear); Bilirubin,Urine Negative (Negative); Blood,Urine Negative (Negative); Color,Urine Light Yellow; Glucose,Urine (UA) Negative (Negative); Ketones,Urine Negative (Negative); Leukocyte Esterase,Urine Negative (Negative); Nitrite,Urine Negative (Negative); PH, Urine 5.5 (5.0-8.0); Protein,Urine Negative (Negative); Urobilinogen,Urine <2.0 mg/dL (<2.0)
[2019-12-10 19:44] LABS: Amphetamine Screen,Urine Not Detected (NotDetected); Barbiturate Screen,Urine Not Detected (NotDetected); Benzodiazepines Screen,Urine Not Detected (NotDetected); Cocaine Screen,Urine Not Detected (NotDetected); Methadone Screen, Urine Not Detected (NotDetected); Opiate Screen,Urine Detected (NotDetected); Oxycodone Screen, Urine Not Detected (NotDetected); Phencyclidine Screen,Urine Not Detected (NotDetected); Tricyclic Antidepressant,Urine Detected (NotDetected); Urn Cannabinoid Scrn Detected (NotDetected)
[2019-12-11] MEDS ORDERED: LORazepam 1 MG TAB PO STA (04:52)
[2019-12-11 05:52] LABS: Glucose,Whole Blood 87 mg/dL (75-99)
[2019-12-11 06:12] VITALS: TEMP 98
[2019-12-11] MEDS ORDERED: ALPRAZolam 1 MG TAB PO STA (08:04)
[2019-12-11 09:02] VITALS: BP 142/76; PULSE 76; RESP 16
[2019-12-11 09:03] LABS: Glucose,Whole Blood 84 mg/dL (75-99)
== END 2019-12-11 09:01 | disposition home or self-care (01) ==
LOC: EC 17:49
DX: R45.851 Suicidal ideations (principal); R74.0 Nonspecific elevation of levels of transaminase and lactic acid dehydrogenase [LDH]; F19.11 Other psychoactive substance abuse, in remission; Z76.5 Malingerer [conscious simulation]; R41.0 Disorientation, unspecified; F17.200 Nicotine dependence, unspecified, uncomplicated; Z59.0 Homelessness
CPT/HCPCS: 36415 ×2; 93005; 80053; 82140; 83605; 84484; 85025; 81003; 80306; 71046; 70450; 99285; 96360; 96361 ×5; G0480; 80320

== ENCOUNTER 2019-12-11 18:16 | Observation (INO) | payer OTHER ==
[2019-12-11] MEDS ORDERED: SODIUM CHLORIDE 0.9% 1,000 ML IV STA ×2 (18:20→22:31)
--- NOTE | 2019-12-11 18:22 | ED ---
Altered Mental Status HPI - General Stated Complaint: altered Time Seen by Provider: 12/11/19 18:16 Source: patient, EMS, RN notes reviewed, old records reviewed Mode of arrival: EMS - History of Present Illness Initial Comments: This is a 34-year-old male history of bipolar disorder alcohol abuse drug abuse including methamphetamine and heroin in the past who is brought in by EMS because of being found be unresponsive at a local fast food restaurant. He had glucose was adequate at 136 he admits to drinking and doing some drugs today. No trauma reported he was just discharged this morning from this facility. No fevers chills nausea vomiting sweats or other symptoms. MD Complaint: altered mental status, confusion, decreased responsiveness, intoxication - Related Data Home Medications Medication Instructions Recorded Confirmed Paliperidone IM [Invega Sustenna] 234 mg IM Q30D 12/11/19 12/11/19 Previous Rx's Medication Instructions Recorded Nicotine 14Mg/24Hr Patch [Habitrol] 1 patch TRANSDERM DAILY #14 patch 11/01/19 Allergies Allergy/AdvReac Type Severity Reaction Status Date / Time No Known Allergies Allergy Verified 12/11/19 08:50 Review of Systems ROS Statement: Those systems with pertinent positive or pertinent negative responses have been documented in the HPI. ROS Other: All systems not noted in ROS Statement are negative. Past Medical History Past Medical History: GERD/Reflux, Hypertension Additional Past Medical History / Comment(s): Hepatitis C, DDD, back pain, bilateral carpel tunnel syndrome. ETOH occassionally drinks 1 5th vodka more than 3 times a week. He reports that he has heart disease that was found when he had kidney problems but he denies having a stress test or cardiac catheterization. History of Any Multi-Drug Resistant Organisms: None Reported MDRO Source:: unknown Past Surgical History: No Surgical Hx Reported Past Anesthesia/Blood Transfusion Reactions: Unable to Obtain Additional Past Anesthesia/Blood Transfusion Reaction / Comment(s): Pt states he has never had surgery. Past Psychological History: Anxiety, Depression Smoking Status: Current every day smoker Past Alcohol Use History: Occasional Past Drug Use History: Heroin, IV Drug Use, Marijuana, Methamphetamine - Past Family History Father Family Medical History: Coronary Artery Disease (CAD) Additional Family Medical History / Comment(s): Father is . Mother Family Medical History: Rheumatoid Arthritis (RA) Additional Family Medical History / Comment(s): Mother is . General Exam - General Exam Comments Initial Comments: This a well-developed well-nourished awake but lethargic male General appearance: alert, appears intoxicated, lethargic Head exam: Present: atraumatic, normocephalic, normal inspection Eye exam: Present: normal appearance, PERRL, EOMI. Absent: scleral icterus, conjunctival injection, periorbital swelling ENT exam: Present: mucous membranes dry Neck exam: Present: normal inspection. Absent: tenderness, meningismus, lymphadenopathy Respiratory exam: Present: normal lung sounds bilaterally. Absent: respiratory distress, wheezes, rales, rhonchi, stridor Cardiovascular Exam: Present: regular rate, normal rhythm, normal heart sounds. Absent: systolic murmur, diastolic murmur, rubs, gallop, clicks GI/Abdominal exam: Present: soft, normal bowel sounds. Absent: distended, tenderness, guarding, rebound, rigid Extremities exam: Present: normal inspection, full ROM, normal capillary refill. Absent: tenderness, pedal edema, joint swelling, calf tenderness Back exam: Present: normal inspection Neurological exam: Present: alert, oriented X3, CN II-XII intact Psychiatric exam: Present: depressed, flat affect Skin exam: Present: warm, dry, intact, normal color. Absent: rash Course Vital Signs 12/11/19 12/11/19 18:21 21:00 Temperature 98.7 F Pulse Rate 80 84 Respiratory 16 Rate Blood Pressure 136/90 O2 Sat by Pulse 99 96 Oximetry Medical Decision Making - Medical Decision Making Patient require sedation due to combative behavior. I did discuss the case with Dr. Hathaway patient be admitted for evaluation of rhabdomyolysis as well as alcohol intoxication. - Lab Data Result diagrams: 12/11/19 18:31 12/11/19 18:31 Lab Results 12/11/19 12/11/19 12/11/19 Range/Units 18:31 18:31 18:31 WBC 8.3 (3.8-10.6) k/uL RBC 5.01 (4.30-5.90) m/uL Hgb 14.7 (13.0-17.5) gm/dL Hct 42.8 (39.0-53.0) % MCV 85.6 (80.0-100.0) fL MCH 29.4 (25.0-35.0) pg MCHC 34.3 (31.0-37.0) g/dL RDW 13.8 (11.5-15.5) % Plt Count 208 (150-450) k/uL Neutrophils % 51 % Lymphocytes % 39 % Monocytes % 4 % Eosinophils % 2 % Basophils % 1 % Neutrophils # 4.2 (1.3-7.7) k/uL Lymphocytes # 3.2 (1.0-4.8) k/uL Monocytes # 0.3 (0-1.0) k/uL Eosinophils # 0.2 (0-0.7) k/uL Basophils # 0.1 (0-0.2) k/uL Sodium 146 H (137-145) mmol/L Potassium 4.3 (3.5-5.1) mmol/L Chloride 114 H (98-107) mmol/L Carbon Dioxide 21 L (22-30) mmol/L Anion Gap 11 mmol/L BUN 9 (9-20) mg/dL Creatinine 0.82 (0.66-1.25) mg/dL Est GFR (CKD-EPI)AfAm >90 (>60 ml/min/1.73 sqM) Est GFR (CKD-EPI)NonAf >90 (>60 ml/min/1.73 sqM) Glucose 72 L (74-99) mg/dL Calcium 9.0 (8.4-10.2) mg/dL Magnesium 2.2 (1.6-2.3) mg/dL Total Bilirubin 0.4 (0.2-1.3) mg/dL AST 247 H (17-59) U/L ALT 482 H (4-49) U/L Alkaline Phosphatase 69 (38-126) U/L Ammonia (<30) umol/L Creatine Kinase 1189 H* (55-170) U/L Total Protein 8.8 H (6.3-8.2) g/dL Albumin 4.5 (3.5-5.0) g/dL Urine Color Light Yellow Urine Appearance Clear (Clear) Urine pH 5.5 (5.0-8.0) Ur Specific [place] 1.003 (1.001-1.035) Urine Protein Negative (Negative) Urine Glucose (UA) Negative (Negative) Urine Ketones Negative (Negative) Urine Blood Negative (Negative) Urine Nitrite Negative (Negative) Urine Bilirubin Negative (Negative) Urine Urobilinogen <2.0 (<2.0) mg/dL Ur Leukocyte Esterase Negative (Negative) Salicylates <1.0 mg/dL Urine Opiates Screen Not Detected (NotDetected) Ur Oxycodone Screen Not Detected (NotDetected) Urine Methadone Screen Not Detected (NotDetected) Ur Propoxyphene Screen Not Detected (NotDetected) Acetaminophen <10.0 ug/mL Ur Barbiturates Screen Not Detected (NotDetected) U Tricyclic Antidepress Detected H (NotDetected) Ur Phencyclidine Scrn Not Detected (NotDetected) Ur Amphetamines Screen Not Detected (NotDetected) U Methamphetamines Scrn Not Detected (NotDetected) U Benzodiazepines Scrn Not Detected (NotDetected) Urine Cocaine Screen Not Detected (NotDetected) U Marijuana (THC) Screen Detected H (NotDetected) Serum Alcohol 282 H* mg/dL 12/11/19 Range/Units 20:29 WBC (3.8-10.6) k/uL RBC (4.30-5.90) m/uL Hgb (13.0-17.5) gm/dL Hct (39.0-53.0) % MCV (80.0-100.0) fL MCH (25.0-35.0) pg MCHC (31.0-37.0) g/dL RDW (11.5-15.5) % Plt Count (150-450) k/uL Neutrophils % % Lymphocytes % % Monocytes % % Eosinophils % % Basophils % % Neutrophils # (1.3-7.7) k/uL Lymphocytes # (1.0-4.8) k/uL Monocytes # (0-1.0) k/uL Eosinophils # (0-0.7) k/uL Basophils # (0-0.2) k/uL Sodium (137-145) mmol/L Potassium (3.5-5.1) mmol/L Chloride (98-107) mmol/L Carbon Dioxide (22-30) mmol/L Anion Gap mmol/L BUN (9-20) mg/dL Creatinine (0.66-1.25) mg/dL Est GFR (CKD-EPI)AfAm (>60 ml/min/1.73 sqM) Est GFR (CKD-EPI)NonAf (>60 ml/min/1.73 sqM) Glucose (74-99) mg/dL Calcium (8.4-10.2) mg/dL Magnesium (1.6-2.3) mg/dL Total Bilirubin (0.2-1.3) mg/dL AST (17-59) U/L ALT (4-49) U/L Alkaline Phosphatase (38-126) U/L Ammonia 10 (<30) umol/L Creatine Kinase (55-170) U/L Total Protein (6.3-8.2) g/dL Albumin (3.5-5.0) g/dL Urine Color Urine Appearance (Clear) Urine pH (5.0-8.0) Ur Specific [place] (1.001-1.035) Urine Protein (Negative) Urine Glucose (UA) (Negative) Urine Ketones (Negative) Urine Blood (Negative) Urine Nitrite (Negative) Urine Bilirubin (Negative) Urine Urobilinogen (<2.0) mg/dL Ur Leukocyte Esterase (Negative) Salicylates mg/dL Urine Opiates Screen (NotDetected) Ur Oxycodone Screen (NotDetected) Urine Methadone Screen (NotDetected) Ur Propoxyphene Screen (NotDetected) Acetaminophen ug/mL Ur Barbiturates Screen (NotDetected) U Tricyclic Antidepress (NotDetected) Ur Phencyclidine Scrn (NotDetected) Ur Amphetamines Screen (NotDetected) U Methamphetamines Scrn (NotDetected) U Benzodiazepines Scrn (NotDetected) Urine Cocaine Screen (NotDetected) U Marijuana (THC) Screen (NotDetected) Serum Alcohol mg/dL Disposition Clinical Impression: Alcohol intoxication, Rhabdomyolysis Disposition: ADMITTED IP TO THIS HOSP Condition: Fair Referrals: None,Stated [Primary Care Provider] - 1-2 days
[2019-12-11] MEDS ORDERED: LORazepam 2 MG/ML INJ IV STA ×2 (18:34→20:20)
[2019-12-11] MEDS ORDERED: ZIPRASIDONE 20 MG VIAL IM STA (19:01)
[2019-12-11 19:08] LABS: Appearance,Urine Clear (Clear); Bilirubin,Urine Negative (Negative); Blood,Urine Negative (Negative); Color,Urine Light Yellow; Glucose,Urine (UA) Negative (Negative); Ketones,Urine Negative (Negative); Leukocyte Esterase,Urine Negative (Negative); Nitrite,Urine Negative (Negative); PH, Urine 5.5 (5.0-8.0); Protein,Urine Negative (Negative); Specific Gravity,Urine 1.003 (1.001-1.035); Urobilinogen,Urine <2.0 mg/dL (<2.0)
[2019-12-11 19:09] LABS: Basophils # (A) 0.1 k/uL (0-0.2); Basophils % (A) 1 %; Eosinophils # (A) 0.2 k/uL (0-0.7); Eosinophils % (A) 2 %; HCT 42.8 % (39.0-53.0); HGB 14.7 gm/dL (13.0-17.5); Lymphocytes # (A) 3.2 k/uL (1.0-4.8); Lymphocytes % (A) 39 %; MCH 29.4 pg (25.0-35.0); MCHC 34.3 g/dL (31.0-37.0); MCV 85.6 fL (80.0-100.0); Mean Platelet Volume 8.2; Monocytes # (A) 0.3 k/uL (0-1.0); Monocytes % (A) 4 %; Neutrophils # (A) 4.2 k/uL (1.3-7.7); Neutrophils % (A) 51 %; Platelet Count 208 k/uL (150-450); RBC 5.01 m/uL (4.30-5.90); RDW 13.8 % (11.5-15.5); WBC 8.3 k/uL (3.8-10.6)
[2019-12-11 19:25] LABS: Amphetamine Screen,Urine Not Detected (NotDetected); Barbiturate Screen,Urine Not Detected (NotDetected); Benzodiazepines Screen,Urine Not Detected (NotDetected); Cocaine Screen,Urine Not Detected (NotDetected); Methadone Screen, Urine Not Detected (NotDetected); Opiate Screen,Urine Not Detected (NotDetected); Oxycodone Screen, Urine Not Detected (NotDetected); Phencyclidine Screen,Urine Not Detected (NotDetected); Tricyclic Antidepressant,Urine Detected (NotDetected); Urn Cannabinoid Scrn Detected (NotDetected)
[2019-12-11 19:42] LABS: ALT 482 U/L (4-49); AST 247 U/L (17-59); Acetaminophen <10.0 ug/mL; African American GFR (CKD) >90 (>60 ml/min/1.73 sqM); Albumin 4.5 g/dL (3.5-5.0); Alkaline Phosphatase 69 U/L (38-126); Anion Gap 11 mmol/L; Blood Urea Nitrogen 9 mg/dL (9-20); Carbon Dioxide 21 mmol/L (22-30); Chloride 114 mmol/L (98-107); Glucose 72 mg/dL (74-99); Magnesium 2.2 mg/dL (1.6-2.3); Non-African American GFR(CKD) >90 (>60 ml/min/1.73 sqM); Potassium 4.3 mmol/L (3.5-5.1); Salicylate <1.0 mg/dL; Sodium 146 mmol/L (137-145); Total Bilirubin 0.4 mg/dL (0.2-1.3); Total Protein 8.8 g/dL (6.3-8.2)
[2019-12-11 19:57] LABS: Creatine Kinase 1189 U/L (55-170)
[2019-12-11 19:58] LABS: Alcohol 282 mg/dL
[2019-12-11] MEDS ORDERED: SODIUM CHLORIDE 0.9% 1,000 ML with MVI, ADULT NO.4 WITH VIT K 10 ML, THIAMINE 100 MG, F... IV ONE ×4 (21:00)
[2019-12-11] MEDS ORDERED: THIAMINE 100 MG/ML 2 ML VIAL IM STA (22:03)
[2019-12-11] MEDS ORDERED: LORazepam 2 MG/ML INJ IV PRN (22:03)
[2019-12-11] MEDS ORDERED: NALOXONE 0.4 MG/ML 1 ML VIAL IV PRN (22:04)
[2019-12-11] MEDS ORDERED: ONDANSETRON 4 MG/2 ML VIAL IVP PRN (22:04)
[2019-12-11] MEDS: LORazepam 2 MG/ML INJ IV PRN (22:38)
--- NOTE | 2019-12-11 22:42 | P.HPIM ---
History of Present Illness H&P Date: 12/11/19 Chief Complaint: Confusion The patient is a 34-year-old male the past medical history of major depression, opioid dependence, alcohol use disorder, alcoholic hepatitis, hep C who presented to the ER via EMS after he was apparently found unresponsive at a local [employer] restaurant, the patient reported drinking and doing some drugs today. History is limited by the patient's acute alcohol intoxication Review of records indicates that Patient was discharged from inpatient psychiatry on Effexor 74 mg and Seroquel 200 mg hs in October The patient apparently presented here yesterday and was evaluated for confusion CT of the head done was negative for any intracranial pathology showed left sided sinusitis, chest x-ray was normal at that time In the ER the patient had a comprehensive workup serum alcohol was 282 UDS was positive for TCA and THC, CBC was unremarkable, CMP serum sodium 146 serum bicarb 21, total bilirubin 0.4 AST ALT 247/482, total CK 1189 Review of Systems ROS unobtainable: due to mental status (Acutely intoxicated) Past Medical History Past Medical History: GERD/Reflux, Hypertension Additional Past Medical History / Comment(s): Hepatitis C, DDD, back pain, bilateral carpel tunnel syndrome. ETOH occassionally drinks 1 5th vodka more than 3 times a week. He reports that he has heart disease that was found when he had kidney problems but he denies having a stress test or cardiac catheterization. History of Any Multi-Drug Resistant Organisms: None Reported MDRO Source:: unknown Past Surgical History: No Surgical Hx Reported Past Anesthesia/Blood Transfusion Reactions: Unable to Obtain Additional Past Anesthesia/Blood Transfusion Reaction / Comment(s): Pt states he has never had surgery. Past Psychological History: Anxiety, Depression Smoking Status: Current every day smoker Past Alcohol Use History: Occasional Past Drug Use History: Heroin, IV Drug Use, Marijuana, Methamphetamine - Past Family History Father Family Medical History: Coronary Artery Disease (CAD) Additional Family Medical History / Comment(s): Father is . Mother Family Medical History: Rheumatoid Arthritis (RA) Additional Family Medical History / Comment(s): Mother is . Medications and Allergies Home Medications Medication Instructions Recorded Confirmed Type Nicotine 14Mg/24Hr Patch [Habitrol] 1 patch TRANSDERM DAILY #14 patch 11/01/19 12/11/19 Rx Paliperidone IM [Invega Sustenna] 234 mg IM Q30D 12/11/19 12/11/19 History Allergies Allergy/AdvReac Type Severity Reaction Status Date / Time No Known Allergies Allergy Verified 12/11/19 08:50 Physical Exam Vitals: Vital Signs Temp Pulse Resp BP Pulse Ox 12/11/19 21:00 84 96 12/11/19 18:21 98.7 F 80 16 136/90 99 Intake and Output 12/11/19 12/11/19 12/11/19 06:59 14:59 22:59 Other: Weight 95.254 kg Constitutional: No acute distress, somnolent but arousable, unkempt, intoxicated, smells of alcohol Eyes: Anicteric sclerae, moist conjunctiva, no lid-lag, PERRLA ENMT: NC/AT,Oropharynx clear, no erythema, exudates Neck:Supple, FROM, no masses, or JVD, No carotid bruits; No thyromegaly Lungs: Clear to auscultation, Clear to percussion, Normal respiratory effort, no accessory muscle use Cardiovascular: Heart regular in rate and rhythm, No murmurs, gallops, or rubs no peripheral edema Abdominal: Soft Nontender, nom distended, no guarding, no rebound or rigidity, Normoactive bowel sounds No hepatomegaly, No splenomegaly, No palpable mass No abdominal wall hernia noted Skin: Normal temperature, tone, texture, turgor, No induration No subcutaneous nodules, No rash, lesions, No ulcers Extremities:No digital cyanosis No clubbing, Pedal pulses intact and symmetrical Radial pulses intact and symmetrical, No calf tenderness Neuro: Muscles Strength 5/5 in all 4 extremities, Sensation to light touch grossly present throughout, Cranial nerves II-XII grossly intact. No focal sensory deficits Results CBC & Chem 7: 12/11/19 18:31 12/11/19 18:31 Labs: Abnormal Lab Results - Last 24 Hours (Table) 12/11/19 12/11/19 Range/Units 18:31 18:31 Sodium 146 H (137-145) mmol/L Chloride 114 H (98-107) mmol/L Carbon Dioxide 21 L (22-30) mmol/L Glucose 72 L (74-99) mg/dL AST 247 H (17-59) U/L ALT 482 H (4-49) U/L Creatine Kinase 1189 H* (55-170) U/L Total Protein 8.8 H (6.3-8.2) g/dL U Tricyclic Antidepress Detected H (NotDetected) U Marijuana (THC) Screen Detected H (NotDetected) Serum Alcohol 282 H* mg/dL Assessment and Plan Assessment: Metabolic encephalopathy Acute alcohol intoxication superimposed on chronic alcohol dependence Rhabdomyolysis Alcoholic hepatitis Hypernatremia Polysubstance drug use Opioid dependence Plan: The patient is admitted anticipated greater than 2 midnight stay with acute alcohol intoxication after presenting with confusion, workup so far suggests Acute alcohol intoxication metabolic encephalopathy with elevated serum alcohol level on presentation. The patient was started on typical protocol with IV fluids banana bag and thiamine replacement, initiated on symptom triggered CIWA withdrawal protocol. Plans for psych consultation, patient is also noted to have acute rhabdomyolysis is also continued on IV fluids. We will plan to [facility] environmental health and safety intern continue to follow his clinical course. Prophylaxis with SCDs and Protonix CODE STATUS: Full code Discussed plan of care with: Patient Anticipated discharge place: Substance abuse recovery versus psych
[2019-12-12] MEDS: LORazepam 2 MG/ML INJ IV PRN ×3 (00:12→07:49)
[2019-12-12] MEDS ORDERED: HALOPERIDOL LACTATE 5 MG/ML 1 ML VIAL IM STA (03:05)
[2019-12-12] MEDS ORDERED: LORazepam 2 MG/ML INJ IV STA (03:06)
[2019-12-12 07:02] LABS: Basophils # (A) 0.1 k/uL (0-0.2); Basophils % (A) 1 %; Eosinophils # (A) 0.3 k/uL (0-0.7); Eosinophils % (A) 4 %; HCT 39.6 % (39.0-53.0); HGB 12.7 gm/dL (13.0-17.5); Lymphocytes # (A) 2.4 k/uL (1.0-4.8); Lymphocytes % (A) 35 %; MCH 27.9 pg (25.0-35.0); MCHC 32.2 g/dL (31.0-37.0); MCV 86.6 fL (80.0-100.0); Mean Platelet Volume 8.2; Monocytes # (A) 0.4 k/uL (0-1.0); Monocytes % (A) 6 %; Neutrophils # (A) 3.4 k/uL (1.3-7.7); Neutrophils % (A) 50 %; Platelet Count 179 k/uL (150-450); RBC 4.57 m/uL (4.30-5.90); RDW 14.1 % (11.5-15.5); WBC 6.9 k/uL (3.8-10.6)
[2019-12-12 07:10] LABS: ALT 417 U/L (4-49); AST 209 U/L (17-59); African American GFR (CKD) >90 (>60 ml/min/1.73 sqM); Albumin 3.7 g/dL (3.5-5.0); Alcohol <10 mg/dL; Alkaline Phosphatase 55 U/L (38-126); Anion Gap 8 mmol/L; Blood Urea Nitrogen 13 mg/dL (9-20); Calcium 8.7 mg/dL (8.4-10.2); Carbon Dioxide 21 mmol/L (22-30); Chloride 115 mmol/L (98-107); Creatine Kinase 732 U/L (55-170); Glucose 78 mg/dL (74-99); Non-African American GFR(CKD) >90 (>60 ml/min/1.73 sqM); Potassium 4.2 mmol/L (3.5-5.1); Sodium 144 mmol/L (137-145); Total Bilirubin 0.6 mg/dL (0.2-1.3); Total Protein 7.5 g/dL (6.3-8.2)
[2019-12-12 07:19] LABS: Prothrombin Time 10.6 sec (9.0-12.0)
[2019-12-12] MEDS: NICOTINE 14MG/24HR PATCH TRANSDERM SCH (07:54)
[2019-12-12] MEDS: PANTOPRAZOLE 40 MG TABLET PO SCH (07:54)
--- NOTE | 2019-12-12 18:39 | P.DS ---
Providers Date of admission: 12/11/19 22:29 Expected date of discharge: 12/12/19 Attending physician: Nilson Hathaway MD Consults: 12/11/19 22:05 Consult Physician Routine Consulting Provider: Gamal Ruvalcaba Consult Reason/Comments: severe depression/substance abuse Do you want consulting provider notified?: Yes Primary care physician: Stated None Hospital Course: The patient is a 34-year-old male the past medical history of major depression, opioid dependence, alcohol use disorder, alcoholic hepatitis, hep C who presented to the ER via EMS after he was apparently found unresponsive at a local [employer] restaurant, the patient reported drinking and doing some drugs today. Review of records indicates that Patient was discharged from inpatient psychiatry on Effexor 74 mg and Seroquel 200 mg in October. The patient apparently presented here the day prior to admission and was evaluated for confusion CT of the head done was negative for any intracranial pathology showed left sided sinusitis, chest x-ray was normal at that time. In the ER the patient had a comprehensive workup serum alcohol was 282 UDS was positive for TCA and THC, CBC was unremarkable, CMP showed sodium 146 serum bicarb 21, total bilirubin 0.4, AST ALT 247/482, total CK 1189. Patient was admitted and started on IV hydration at normal saline 120 mL per hour. Because he was intoxicated, he was started on CIWA protocol and given Ativan as needed for withdrawal symptoms. He was started on nicotine patch. He was given a dose of thiamine 100 mg IM. Blood alcohol was 282 on admission and was within normal limits the following day. Patient had an elevated CPK of 1189 which trended down to 732 on day 2 of admission. Kidney function was within normal limits on admission. Patient was noted to have elevated liver enzymes that was thought to be likely related to alcohol abuse. He did have a history of hepatitis C as well. Patient was seen and examined. Sitter is at bedside. As per RN, patient is confused and agitated. He received Haldol and is currently asleep. His CIWA score is 11 but pulse and blood pressure is within normal limits. General: [non toxic], [no distress], [appears at stated age] Derm: [warm], [dry] Head: [atraumatic], [normocephalic], [symmetric] Eyes: [EOMI], [no lid lag], [anicteric sclera] Mouth: [no lip lesion], [mucus membranes moist] Cardiovascular: [S1S2 reg], [no murmur], [positive DP pulse bilateral], Lungs: [CTA bilateral], [no rhonchi, no rales] , [no accessory muscle use] Abdominal: [soft], [ nontender to palpation], [no guarding], [no appreciable organomegaly] Ext: [no gross muscle atrophy], [no edema], [no contractures] Neuro: [no focal neuro deficits] Psych: [Sleeping but easily arousable] Acute metabolic encephalopathy likely related to psychiatric history and acute alcohol intoxication Alcohol abuse with high risk for withdrawal Rhabdomyolysis Elevated liver enzymes likely related to alcohol abuse and hepatitis C Polysubstance drug abuse CT brain negative during previous admission. Plans: Continue Effexor, Seroquel and Depakote. His altered mentation is likely related to psychiatric history rather than alcohol withdrawal given that his BP and pulse has been within normal limits. Follow psychiatry recommendations. Continue sitter. Plans: CIWA protocol. Ativan as needed for withdrawal symptoms. Fall and seizure precautions. Continue sitter. CPK downtrending from 1189 to 732. Renal function within normal limits. Plans: Encourage hydration by mouth. AST 209, ALT 417. Hepatitis C IgG positive previous admission. Plans: Adequate follow-up in the outpatient setting. Quit alcohol. Also contributing to psychiatric history and altered mentation. Plans: Patient advised to quit illicit substance along with alcohol. [Patient admitted for altered mentation and alcohol intoxication. Altered mentation likely related to psychiatric history rather than alcohol withdrawal, patient hemodynamically stable. Psychiatry consultation pending. Discharge planning per psychiatry recommendations.] Patient Condition at Discharge: Fair Plan - Discharge Summary Discharge Rx Participant: No New Discharge Prescriptions: No Action Nicotine 14Mg/24Hr Patch [Habitrol] 1 patch TRANSDERM DAILY #14 patch Paliperidone IM [Invega Sustenna] 234 mg IM Q30D Divalproex ER [Depakote ER] 1,000 mg PO HS QUEtiapine FUMARATE [SEROquel] 200 mg PO HS Venlafaxine HCl [Effexor XR] 75 mg PO DAILY Discharge Medication List Nicotine 14Mg/24Hr Patch [Habitrol] 1 patch TRANSDERM DAILY #14 patch 11/01/19 [Rx] Divalproex ER [Depakote ER] 1,000 mg PO HS 12/11/19 [History] Paliperidone IM [Invega Sustenna] 234 mg IM Q30D 12/11/19 [History] QUEtiapine FUMARATE [SEROquel] 200 mg PO HS 12/11/19 [History] Venlafaxine HCl [Effexor XR] 75 mg PO DAILY 12/11/19 [History] Follow up Appointment(s)/Referral(s): None,Stated [Primary Care Provider] - 1-2 days
[2019-12-12] MEDS ORDERED: QUEtiapine 200 MG TAB PO SCH (21:00)
[2019-12-12] MEDS ORDERED: DIVALPROEX ER 500 MG TAB.ER.24H PO SCH (21:00)
[2019-12-13 07:18] VITALS: RESP 16
[2019-12-13] MEDS: NICOTINE 14MG/24HR PATCH TRANSDERM SCH (08:55)
[2019-12-13] MEDS: PANTOPRAZOLE 40 MG TABLET PO SCH (08:55)
[2019-12-13] MEDS ORDERED: VENLAFAXINE HCL ER 75 MG CAP PO SCH (09:00)
[2019-12-13] MEDS: LORazepam 2 MG/ML INJ IV PRN (10:06)
[2019-12-13 14:49] VITALS: BP 123/71; PULSE 63; TEMP 97.9
[2019-12-13] MEDS ORDERED: ALPRAZolam 1 MG TAB PO STA (14:56)
--- NOTE | 2019-12-13 14:58 | P.PN ---
Subjective Progress Note Date: 12/13/19 Principal diagnosis: Anxiety Patient was seen and examined. No acute events overnight. Patient reports some anxiety, requesting Ativan. He denies any chest pain, shortness of breath or palpitations. No nausea or vomiting. No fever or chills. He denies any auditory or visual hallucinations. No suicidal or homicidal ideations. Objective - Vital Signs Vital signs: Vital Signs Temp 97.9 F 12/13/19 14:48 Pulse 63 12/13/19 14:48 Resp 16 12/13/19 14:48 BP 123/71 12/13/19 14:48 Pulse Ox 97 12/13/19 14:48 Intake & Output 12/12/19 12/13/19 12/13/19 18:59 06:59 18:59 Intake Total 1200 360 Output Total 600 750 Balance 1200 -240 -750 Intake: IV 960 360 Sodium Chloride 0.9% 1, 960 360 000 ml @ 120 mls/hr IV . Q8H20M STA Rx#:[id number] Oral 240 Output: Urine 600 750 Other: Voiding Method Urinal # Voids 1 1 - Exam General: [non toxic], [no distress], [appears at stated age] Derm: [warm], [dry] Head: [atraumatic], [normocephalic], [symmetric] Eyes: [EOMI], [no lid lag], [anicteric sclera] Mouth: [no lip lesion], [mucus membranes moist] Cardiovascular: [S1S2 reg], [no murmur], [positive DP pulse bilateral], Lungs: [CTA bilateral], [no rhonchi, no rales] , [no accessory muscle use] Abdominal: [soft], [ nontender to palpation], [no guarding], [no appreciable organomegaly] Ext: [no gross muscle atrophy], [no edema], [no contractures] Neuro: [no focal neuro deficits] Psych: [Appears anxious but alert and oriented 3] - Labs CBC & Chem 7: 12/12/19 06:41 12/12/19 06:41 Assessment and Plan Assessment: Acute metabolic encephalopathy likely related to psychiatric history and acute alcohol intoxication Alcohol abuse with high risk for withdrawal Rhabdomyolysis Elevated liver enzymes likely related to alcohol abuse and hepatitis C Polysubstance drug abuse CT brain negative during previous admission. Plans: Continue Effexor, Seroquel and Depakote. His altered mentation is likely related to psychiatric history rather than alcohol withdrawal given that his BP and pulse has been within normal limits. Discussed with Psychiatry, they have cleared the patient for discharge. Plans: [facility] protocol. Ativan as needed for withdrawal symptoms. Fall and seizure precautions. CPK downtrending from 1189 to 732. Renal function within normal limits. Plans: Encourage hydration by mouth. AST 209, ALT 417. Hepatitis C IgG positive previous admission. Plans: Adequate follow-up in the outpatient setting. Quit alcohol. Also contributing to psychiatric history and altered mentation. Plans: Patient advised to quit illicit substance along with alcohol. [Patient admitted for altered mentation and alcohol intoxication. Psychiatry has evaluated the patient include the patient for discharge. DC home with 7 days of medications.]
--- NOTE | 2019-12-13 20:24 | CONS ---
CONSULTATION DATE OF SERVICE: 12/13/2019 PURPOSE FOR CONSULTATION: Evaluate for altered mental status. HISTORY OF PRESENTING ILLNESS: The patient is a 34-year-old male. He has a past history of major depression, opioid dependence, alcohol use disorder, alcoholic hepatitis. He presented to the ER when he was found unresponsive at [facility]. He apparently had been drinking and doing some drugs on the day of admission. He had an alcohol level of 282. His urine drug screen was positive for TCA and THC. He had elevated liver function tests, with AST 247, ALT 482, total CK 1189. In the history given to Dr. Hathaway, it was documented the patient indicated that he drank one fifth of vodka more than 3 times a week. The patient told me that he has a followup with [facility]. He said he was last seen there 2 weeks ago with his disease case manager Samantha. He said he saw his psychiatrist about one month ago. He notes that he is prescribed Depakote and Effexor. Home medications documented include Effexor 75 mg a day, Depakote ER 1000 mg a day, Seroquel 200 mg a day and Xanax 1 mg q.8 hours p.r.n. In addition, he receives Invega Sustenna 234 mg IM monthly. When I talked to the patient, he said that he did not feel he came in for alcohol problems, but rather because he was having blood sugar issues. It is noted that since admission the patient's blood sugar has been stable in the normal range. The patient indicates that he resides at the [facility]. He apparently had stopped taking his medications in the last month. Staff indicated that he was having more problems when he first came on the unit. Medicines were restarted, and since then he has seemed to do better. From the patient's standpoint, he says he does not think he needs any psychiatric medications. I asked him if he talked about that with his [facility] physician when he saw him last, and the patient said no. The patient reported no significant problems with anxiety, depression, mood swings or problems with thought disorder. MENTAL STATUS EXAM: Patient was lying in bed. He gave fair eye contact. Psychomotor activity was slowed. Speech was monotone. He answered questions appropriately. His thoughts were clear and coherent. He did not say a lot. His affect was flat, his mood reserved. He seemed somewhat distressed. It was difficult to assess whether or not there was any indication of thought disorder. He was oriented and alert. He did make an effort to answer formal cognitive questions. He seemed to understand some of the events since he has been in the hospital to suggest at least a moderate degree of appropriate cognitive function. ASSESSMENT: This 34-year-old male likely has a diagnosis of mood disorder along with substance dependence on alcohol. Urine drug screen was positive for marijuana as well. I made an effort to discuss medication issues with the patient. He indicated that he felt he did not need to be on medications. He was willing to talk about these issues further with his disease case manager at [facility], [facility], as well as with his doctor. The patient was not indicating any thoughts of harm to self or others. He said his plan was to return to [facility]. I reviewed with Nursing that we need to make a contact through our social media community manager to [facility]. My understanding is that a phone call was made to the social media community manager with a message to call back. I reviewed the case with Dr. Sanchez. He felt that the patient was stable for discharge. It is noted that the patient did have elevated LFTs and ammonia level on admission. His levels did drop over the first 12 hours, with the levels on 12/12 at 0400 being AST 209, ALT 417, and Creatine Kinase level down from 1189 to 732. MIGUEL / KYLEN: [id number] / MTDD
== END 2019-12-13 15:54 | disposition home or self-care (01) ==
LOC: EC 18:16 → 4SSUR 22:29 → INTOOBSV 22:29 → UNDODISIN 12-13 15:54
PROVIDERS: ADMIT Family Medicine; ATTEND Family Medicine
DX: F10.229 Alcohol dependence with intoxication, unspecified (principal); G93.41 Metabolic encephalopathy; F11.20 Opioid dependence, uncomplicated; E87.0 Hyperosmolality and hypernatremia; M62.82 Rhabdomyolysis; F17.210 Nicotine dependence, cigarettes, uncomplicated; K70.10 Alcoholic hepatitis without ascites; F41.9 Anxiety disorder, unspecified; I10 Essential (primary) hypertension; K21.9 Gastro-esophageal reflux disease without esophagitis; F31.9 Bipolar disorder, unspecified; Y90.8 Blood alcohol level of 240 mg/100 ml or more; Z79.899 Other long term (current) drug therapy; J32.9 Chronic sinusitis, unspecified; F19.10 Other psychoactive substance abuse, uncomplicated; T43.96XA Underdosing of unspecified psychotropic drug, initial encounter; Z91.128 Patient's intentional underdosing of medication regimen for other reason; Z71.41 Alcohol abuse counseling and surveillance of alcoholic; R74.8 Abnormal levels of other serum enzymes; B19.20 Unspecified viral hepatitis C without hepatic coma; Z82.61 Family history of arthritis; Z82.49 Family history of ischemic heart disease and other diseases of the circulatory system
CPT/HCPCS: 96376 ×3; 96366 ×3; 96372 ×2; 82075; 96365; 96375; 99285; 36415; 80053 ×2; 82140; 82550 ×2; 83735; 85025 ×2; 85610; 81003; 80306; 83520; G0378 ×3; G0480 ×3; S4990 ×2; J2060 ×3; J1630; J3411; J3486; 80320; 80329

== ENCOUNTER 2019-12-17 12:40 | Inpatient (IN) | payer MEDICAID, OTHER ==
--- NOTE | 2019-12-17 14:19 | ED ---
General Adult HPI - General Chief complaint: Psychiatric Symptoms Stated complaint: EPS eval, suicidal Time Seen by Provider: 12/17/19 12:40 Source: patient, RN notes reviewed, old records reviewed Mode of arrival: ambulatory Limitations: no limitations - History of Present Illness Initial comments: This is a 34-year-old male who presents emergency Department with suicidal ideations. Patient states he has had in the past and he is a patient at [facility]. Patient states she's never been diagnosed with anything that he can remember. Patient states he is not on any medications currently. Patient states he was drinking last night but he doesn't believe it was very heavy. Patient denies any drug use. Patient states he has no physical complaints today. In though he is suicidal he has no specific plan. - Related Data Home Medications Medication Instructions Recorded Confirmed Paliperidone IM [Invega Sustenna] 234 mg IM Q30D 12/11/19 12/11/19 Previous Rx's Medication Instructions Recorded Nicotine 14Mg/24Hr Patch [Habitrol] 1 patch TRANSDERM DAILY #14 patch 11/01/19 ALPRAZolam [Xanax] 1 mg PO Q8HR PRN 3 Days #9 tab 12/13/19 Divalproex ER [Depakote ER] 1,000 mg PO HS #7 tab 12/13/19 QUEtiapine FUMARATE [SEROquel] 200 mg PO HS #7 tab 12/13/19 Venlafaxine HCl [Effexor XR] 75 mg PO DAILY #7 cap 12/13/19 Allergies Allergy/AdvReac Type Severity Reaction Status Date / Time No Known Allergies Allergy Verified 12/11/19 22:48 Review of Systems ROS Statement: Those systems with pertinent positive or pertinent negative responses have been documented in the HPI. ROS Other: All systems not noted in ROS Statement are negative. Past Medical History Past Medical History: GERD/Reflux, Hypertension Additional Past Medical History / Comment(s): Hepatitis C, DDD, back pain, bilateral carpel tunnel syndrome. ETOH occassionally drinks 1 5th vodka more than 3 times a week. He reports that he has heart disease that was found when he had kidney problems but he denies having a stress test or cardiac catheterization. History of Any Multi-Drug Resistant Organisms: None Reported MDRO Source:: unknown Past Surgical History: No Surgical Hx Reported Past Anesthesia/Blood Transfusion Reactions: Unable to Obtain Additional Past Anesthesia/Blood Transfusion Reaction / Comment(s): Pt states he has never had surgery. Past Psychological History: Anxiety, Depression Smoking Status: Current every day smoker Past Alcohol Use History: Occasional Past Drug Use History: Heroin, IV Drug Use, Marijuana, Methamphetamine - Past Family History Father Family Medical History: Coronary Artery Disease (CAD) Additional Family Medical History / Comment(s): Father is . Mother Family Medical History: Rheumatoid Arthritis (RA) Additional Family Medical History / Comment(s): Mother is . General Exam - General Exam Comments Initial Comments: GENERAL: Patient is well-developed and well-nourished. Patient is nontoxic and well- hydrated and is in no acute distress. ENT: Neck is soft and supple. No significant lymphadenopathy is noted. Oropharynx is clear. Moist mucous membranes. Neck has full range of motion without eliciting any pain. EYES: The sclera were anicteric and conjunctiva were pink and moist. Extraocular movements were intact and pupils were equal round and reactive to light. Eyelids were unremarkable. PULMONARY: Unlabored respirations. Good breath sounds bilaterally. No audible rales rhonchi or wheezing was noted. CARDIOVASCULAR: There is a regular rate and rhythm without any murmurs gallops or rubs. ABDOMEN: Soft and nontender with normal bowel sounds. SKIN: Skin is clear with no lesions or rashes and otherwise unremarkable. NEUROLOGIC: Patient is alert and oriented x3. Cranial nerves II through XII are grossly intact. Motor and sensory are also intact. Normal speech, volume and content. Symmetrical smile. MUSCULOSKELETAL: Normal extremities with adequate strength and full range of motion. LYMPHATICS: No significant lymphadenopathy is noted PSYCHIATRIC: Patient states he is suicidal. Patient denies however being depressed Limitations: no limitations Course Vital Signs 12/17/19 12/17/19 12/17/19 12:53 12:56 13:56 Temperature 97.3 F L Pulse Rate 111 H Respiratory 18 20 20 Rate Blood Pressure 127/77 O2 Sat by Pulse 100 Oximetry 12/17/19 14:56 Temperature Pulse Rate Respiratory 20 Rate Blood Pressure O2 Sat by Pulse Oximetry Medical Decision Making - Medical Decision Making EPS evaluated the patient and determined the patient needed to be admitted. - Lab Data Lab Results 12/17/19 Range/Units 13:28 Urine Opiates Screen Not Detected (NotDetected) Ur Oxycodone Screen Not Detected (NotDetected) Urine Methadone Screen Not Detected (NotDetected) Ur Propoxyphene Screen Not Detected (NotDetected) Ur Barbiturates Screen Not Detected (NotDetected) U Tricyclic Antidepress Detected H (NotDetected) Ur Phencyclidine Scrn Not Detected (NotDetected) Ur Amphetamines Screen Detected H (NotDetected) U Methamphetamines Scrn Detected H (NotDetected) U Benzodiazepines Scrn Detected H (NotDetected) Urine Cocaine Screen Not Detected (NotDetected) U Marijuana (THC) Screen Detected H (NotDetected) Disposition Clinical Impression: Depression, Suicidal ideations, Polysubstance abuse Disposition: ADMITTED IP TO THIS HOSP Referrals: None,Stated [Primary Care Provider] - 1-2 days Time of Disposition: 16:13
[2019-12-17 14:24] LABS: Amphetamine Screen,Urine Detected (NotDetected); Barbiturate Screen,Urine Not Detected (NotDetected); Benzodiazepines Screen,Urine Detected (NotDetected); Cocaine Screen,Urine Not Detected (NotDetected); Methadone Screen, Urine Not Detected (NotDetected); Opiate Screen,Urine Not Detected (NotDetected); Oxycodone Screen, Urine Not Detected (NotDetected); Phencyclidine Screen,Urine Not Detected (NotDetected); Tricyclic Antidepressant,Urine Detected (NotDetected); Urn Cannabinoid Scrn Detected (NotDetected)
[2019-12-17] MEDS ORDERED: MAG HYDROX/AL HYDROX/SIMETH 30 ML CUP PO PRN (18:53)
[2019-12-17] MEDS ORDERED: MAGNESIUM HYDROXIDE 2,400 MG/10 ML CUP PO PRN (18:53)
[2019-12-17] MEDS ORDERED: LORazepam 2 MG/ML INJ IM PRN (19:03)
[2019-12-17] MEDS: LORazepam 1 MG TAB PO PRN (20:36)
[2019-12-17] MEDS: QUEtiapine 200 MG TAB PO SCH (20:36)
[2019-12-17] MEDS: DIVALPROEX ER 500 MG TAB.ER.24H PO SCH (20:37)
[2019-12-18] MEDS: NICOTINE 14MG/24HR PATCH TRANSDERM SCH ×2 (08:20)
[2019-12-18] MEDS: VENLAFAXINE HCL ER 75 MG CAP PO SCH (08:20)
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
[2019-12-18 11:33] LABS: AST 566 U/L (17-59); African American GFR (CKD) >90 (>60 ml/min/1.73 sqM); Albumin 3.7 g/dL (3.5-5.0); Alkaline Phosphatase 61 U/L (38-126); Anion Gap 6 mmol/L; Blood Urea Nitrogen 11 mg/dL (9-20); Calcium 9.2 mg/dL (8.4-10.2); Carbon Dioxide 27 mmol/L (22-30); Chloride 107 mmol/L (98-107); Cholesterol 159 mg/dL (<200); Glucose 123 mg/dL (74-99); HDL Cholesterol 46 mg/dL (40-60); LDL Cholesterol,Calculated 95 mg/dL (0-99); Non-African American GFR(CKD) >90 (>60 ml/min/1.73 sqM); Potassium 4.1 mmol/L (3.5-5.1); Sodium 140 mmol/L (137-145); Total Bilirubin 0.7 mg/dL (0.2-1.3); Total Protein 7.3 g/dL (6.3-8.2); Triglycerides 89 mg/dL (<150)
[2019-12-18 11:43] LABS: ALT 835 U/L (4-49)
[2019-12-18 12:53] LABS: Basophils # (A) 0.1 k/uL (0-0.2); Basophils % (A) 1 %; Eosinophils # (A) 0.3 k/uL (0-0.7); Eosinophils % (A) 7 %; HCT 42.4 % (39.0-53.0); HGB 13.5 gm/dL (13.0-17.5); Lymphocytes # (A) 1.6 k/uL (1.0-4.8); Lymphocytes % (A) 33 %; MCH 27.8 pg (25.0-35.0); MCHC 31.7 g/dL (31.0-37.0); MCV 87.6 fL (80.0-100.0); Monocytes # (A) 0.3 k/uL (0-1.0); Monocytes % (A) 6 %; Neutrophils # (A) 2.4 k/uL (1.3-7.7); Neutrophils % (A) 50 %; Platelet Count 193 k/uL (150-450); RBC 4.84 m/uL (4.30-5.90); WBC 4.9 k/uL (3.8-10.6)
[2019-12-18] MEDS ORDERED: PALIPERIDONE IM 234 MG/1.5 ML SYG IM SCH (14:00)
[2019-12-18] MEDS: LORazepam 1 MG TAB PO PRN (16:53)
[2019-12-18 20:54] LABS: Hemoglobin A1C 5.2 % (4.0-6.0)
[2019-12-18] MEDS: QUEtiapine 200 MG TAB PO SCH (21:58)
[2019-12-18] MEDS: DIVALPROEX ER 500 MG TAB.ER.24H PO SCH (21:58)
--- NOTE | 2019-12-19 04:09 | P.CONS ---
History of Present Illness - Reason for Consult Consult date: 12/18/19 - History of Present Illness The patient is a 34 yo homeless M with a PMH of EtOH abuse, tobacco abuse, polysubstance abuse, Hep C, and depression presented to the ED w/ complaints of depressive thoughts and suicidal ideation. The patient was seen in the MHU. He denied active complaints. The patient denied chest pain, SOB, fever, chills, abdominal pain, nausea, vomiting, or dizziness. The patient reported that he has been homeless and doesn't have a place to go, which is making it very difficult for him to cope with his mental illness. He endorsed drinking a 1/5 of Vodka daily for several years. Endorsed active methamphetamine and marijuana abuse. Review of Systems Pertinent positives and negatives as discussed in HPI, a complete review of systems was performed and all other systems are negative. Past Medical History Past Medical History: GERD/Reflux, Hypertension Additional Past Medical History / Comment(s): Hepatitis C, DDD, back pain, bilateral carpel tunnel syndrome. ETOH occassionally drinks 1 5th vodka more than 3 times a week. He reports that he has heart disease that was found when he had kidney problems but he denies having a stress test or cardiac catheterization. History of Any Multi-Drug Resistant Organisms: None Reported MDRO Source:: unknown Past Surgical History: No Surgical Hx Reported Past Anesthesia/Blood Transfusion Reactions: Unable to Obtain Additional Past Anesthesia/Blood Transfusion Reaction / Comm: Pt states he has never had surgery. Past Psychological History: Anxiety, Depression Smoking Status: Current every day smoker Past Alcohol Use History: Occasional Past Drug Use History: Heroin, IV Drug Use, Marijuana, Methamphetamine - Past Family History Father Family Medical History: Coronary Artery Disease (CAD) Additional Family Medical History / Comment(s): Father is . Mother Family Medical History: Rheumatoid Arthritis (RA) Additional Family Medical History / Comment(s): Mother is . Medications and Allergies Home Medications Medication Instructions Recorded Confirmed Type Nicotine 14Mg/24Hr Patch [Habitrol] 1 patch TRANSDERM DAILY #14 patch 11/01/19 12/17/19 Rx Paliperidone IM [Invega Sustenna] 234 mg IM Q30D 12/11/19 12/17/19 History ALPRAZolam [Xanax] 1 mg PO Q8HR PRN 3 Days #9 tab 12/13/19 12/17/19 Rx Divalproex ER [Depakote ER] 1,000 mg PO HS #7 tab 12/13/19 12/17/19 Rx QUEtiapine FUMARATE [SEROquel] 200 mg PO HS #7 tab 12/13/19 12/17/19 Rx Venlafaxine HCl [Effexor XR] 75 mg PO DAILY #7 cap 12/13/19 12/17/19 Rx Paliperidone IM [Invega Sustenna] 234 mg IM QMONTH 12/18/19 12/18/19 History Allergies Allergy/AdvReac Type Severity Reaction Status Date / Time No Known Allergies Allergy Verified 12/11/19 22:48 Physical Exam Vitals: Vital Signs Temp Pulse Pulse Resp BP BP Pulse Ox 12/18/19 08:21 107 H 132/76 12/18/19 06:42 97.8 F 65 18 126/62 96 12/17/19 20:35 113 H 126/100 12/17/19 18:57 97.9 F 108 H 20 163/84 12/17/19 18:40 20 12/17/19 18:00 20 12/17/19 17:00 96 20 115/72 12/17/19 16:00 20 12/17/19 15:00 20 12/17/19 14:56 20 12/17/19 13:56 20 12/17/19 12:56 20 12/17/19 12:53 97.3 F L 111 H 18 127/77 100 General: Disheveled male, non toxic, no distress, appears at stated age, obese Derm: no unusual rashes/lesions no unusual ecchymoses, warm, dry Head: atraumatic, normocephalic, symmetric Eyes: EOMI, no lid lag, anicteric sclera, pupils equal round reactive to light ENT: Nose and ears atraumatic, no thrush, no pharyngeal erythema Neck: No thyromegaly, no cervical lymphadenopathy, trachea midline, supple Mouth: no lip lesion, mucus membranes moist Cardiovascular: S1S2 reg, no murmur, positive posterior tibial pulse bilateral, no edema, capillary refill less than 2 seconds Lungs: CTA bilateral, no rhonchi, no rales , no accessory muscle use Abdominal: soft, nontender to palpation, no guarding, no appreciable organomegaly, normal bowel sounds Ext: no gross muscle atrophy, muscle strength 5 out of 5 in all 4 extremities grossly, no contractures, Neuro: CN II-XI grossly intact, light touch intact all 4 extremities, finger to nose within normal limits, Psych: Alert, oriented, flat affect Results CBC & Chem 7: 12/18/19 09:24 12/18/19 09:24 Labs: Abnormal Lab Results - Last 24 Hours (Table) 12/17/19 Range/Units 13:28 U Tricyclic Antidepress Detected H (NotDetected) Ur Amphetamines Screen Detected H (NotDetected) U Methamphetamines Scrn Detected H (NotDetected) U Benzodiazepines Scrn Detected H (NotDetected) U Marijuana (THC) Screen Detected H (NotDetected) Assessment and Plan Plan: Tobacco abuse -Nicotine patch -Advised on importance of cessation EtOH abuse -CIWA protocol -Thiamine, Folate, MV Polysubstance abuse -Monitor for withdrawal -Advised on importance of cessation Hx of Hep C -Obtain CMP -Likely will need outpatient GI follow-up Depression with suicidal ideation -As per psychiatry
--- NOTE | 2019-12-19 08:49 | P.PN ---
Progress Note - Text Interval history: The patient is found in his room he follows me to an interview room. He reports that he ate breakfast this morning he states that he was able to sleep last night. He has not been attending groups due to "social anxiety". We discussed the importance of group attendance and how he could overcome some of the social anxiety. We discussed development of other coping skills. The patient minimally participates in the conversation. He has no questions or concerns regarding his medication. In reviewing his labs his transaminases are markedly elevated at 566 and 835. We decided to suspend use of the Depakote for now. He indicates no history of seizures. Mental status exam: The patient is alert he has a disheveled appearance he is malodorous despite reports of showering. He is dressed in hospital gowns. He isolates in his room he comes out for meals. Eye contact is staring in nature. He initiates no conversation he provides brief answers to questions asked. He maintains a blunted affect. He reports feeling safe in the hospital in terms of suicidal ideation. He states he would otherwise still have suicidal thoughts if he was not in the hospital. He reports no homicidal ideation intent or plan. He reports no auditory or visual hallucinations or niece specific delusions. There is no observed evidence of psychosis. He demonstrates no tangential thinking loose associations or flight of ideas he does not appear hypomanic or manic. Insight and judgment are poor. Plan: The patient will continue on his current psychotropics however I will discontinue the Depakote at this time. The transaminase elevation is likely due to his history of hepatitis C. Alcohol use could contribute of course. We will monitor him for safety and encourage participation in the milieu. Our conversation with community mental health will continue regarding our concerns noted yesterday. Vital signs reviewed.
[2019-12-19] MEDS: VENLAFAXINE HCL ER 75 MG CAP PO SCH (09:00)
[2019-12-19] MEDS: NICOTINE 14MG/24HR PATCH TRANSDERM SCH (09:00)
[2019-12-19] MEDS: LORazepam 1 MG TAB PO PRN ×2 (14:09→21:22)
[2019-12-19] MEDS: QUEtiapine 200 MG TAB PO SCH (20:32)
--- NOTE | 2019-12-20 08:54 | P.PN ---
Progress Note - Text Interval history: The patient is found in his room he follows me to an interview room. He continues to isolate in his room throughout the day except for meals. He states he does not intend on going to groups. He has no medication questions or concerns. He indicates he had some trouble sleeping last night staff recorded he slept throughout the night. We discussed that if he is lying in bed all day this will likely disrupt his sleep at night. He reports continued hopelessness thoughts with suicidal ideation. He states thoughts keep popping into his head of cutting his wrists. Mental status exam: The patient is an overweight male appearing his stated age. He has impaired hygiene grooming. Eye contact is intermittent. He has no spontaneous speech but provides brief answers to questions asked. He is cooperative and directable. He reports depressed mood with ongoing suicidal thoughts. He reports no homicidal ideation intent or plan. He reports no auditory or visual hallucinations or any specific delusions. He was no observed evidence of psychosis. He demonstrates no tangential thinking loose associat ions or flight of ideas. Insight and judgment are poor. He maintains a blunted affect throughout the session. He demonstrates no verbal or physical aggressiveness he demonstrates no involuntary repetitive movements. Plan: The patient will continue on his current psychotropic medication. We will monitor him for safety. He refuses to attend but he is encouraged to attend groups. Vital signs are reviewed. We will petition for him to have a public guardian appointed. We are collaborating with community mental health to explore appropriate placement options as he seems to require a higher level of care once discharged from the hospital.
[2019-12-20] MEDS: VENLAFAXINE HCL ER 75 MG CAP PO SCH ×2 (10:53→13:07)
[2019-12-20] MEDS: NICOTINE 14MG/24HR PATCH TRANSDERM SCH ×2 (10:53→13:07)
[2019-12-20] MEDS: LORazepam 1 MG TAB PO PRN (13:07)
[2019-12-20] MEDS: ZIPRASIDONE 20 MG VIAL IM PRN (13:36)
[2019-12-20] MEDS: QUEtiapine 200 MG TAB PO SCH (22:28)
[2019-12-21 07:27] LABS: INR 1.1 (<1.2); Prothrombin Time 11.3 sec (9.0-12.0)
[2019-12-21 07:42] LABS: African American GFR (CKD) >90 (>60 ml/min/1.73 sqM); Albumin 4.1 g/dL (3.5-5.0); Alkaline Phosphatase 58 U/L (38-126); Anion Gap 7 mmol/L; Blood Urea Nitrogen 25 mg/dL (9-20); Calcium 9.6 mg/dL (8.4-10.2); Carbon Dioxide 25 mmol/L (22-30); Chloride 108 mmol/L (98-107); Glucose 94 mg/dL (74-99); Non-African American GFR(CKD) >90 (>60 ml/min/1.73 sqM); Potassium 5.1 mmol/L (3.5-5.1); Sodium 140 mmol/L (137-145); Total Bilirubin 0.8 mg/dL (0.2-1.3); Total Protein 8.4 g/dL (6.3-8.2)
[2019-12-21 07:50] LABS: AST 687 U/L (17-59)
[2019-12-21 08:55] LABS: ALT 1140 U/L (4-49)
[2019-12-21] MEDS: VENLAFAXINE HCL ER 75 MG CAP PO SCH ×2 (10:29→13:04)
[2019-12-21] MEDS: NICOTINE 14MG/24HR PATCH TRANSDERM SCH ×2 (10:29→13:04)
[2019-12-21] MEDS: LORazepam 1 MG TAB PO PRN ×2 (13:05→20:16)
[2019-12-21] MEDS: OLANZapine ODT 5 MG TAB PO PRN ×2 (15:07→20:43)
--- NOTE | 2019-12-21 16:32 | P.PN ---
Progress Note - Text Progress Note Date: 12/21/19 Subjective: Patient was seen today as a cross coverage for . The patient was evaluated, chart reviewed, case discussed with the treatment team. Patient reported poor sleep last night. Appetite was reported as "not bad ". Patient has not been going to groups and other unit activities. The patient is compliant with his medications and denies any adverse reactions. Patient reports feeling severely irritated, depressed, and has intermittent suicidal ideation. He denies any current plan or intent to hurt himself. Patient denies any current auditory or visual hallucinations, but reports some paranoid ideation. He denies any manic symptoms including a elevated mood, impulsive or irrational behavior, inflated self-esteem, or absence need to sleep due to increases goal- directed activities. Objective: Mental status examination; Appearance: The patient appears stated age, poorly groomed and dressed, no specific features. Gait/posture: Normal gait, Normal arm swinging: No abnormal movements. Attitude and behavior: engaged, cooperative, fair eye contact. Motor activity: Increased psychomotor activity Speech: Normal rate, tone. Mood: Depressed, irritable Anxious Affect: Restricted Thought form: goal-directed, linear, coherent. Thought content: Non-delusional, reports intermittent suicidal thoughts, denies homicidal thoughts, denies intentions or plans. Perception: Denies any auditory or visual hallucinations Attention: No impairment. Orientation: Patient patient was fully oriented to time place person and situation. Insight: Patient has fair insight about his psychiatric disorder. Judgment: Patient has fair judgment about his psychiatric treatment. Assessment: Major depressive disorder, severe without psychotic features. Alcohol use disorder, severe. Cannabis use disorder, moderate. Opioid use disorder, moderate. Methamphetamine use disorder, moderate. Plan: Continue inpatient level of care due to need for further stabilization on medication and continued to feel depressed and suicidal Precautions: Continue 15 minutes check for safety. Consider medical consultation if any acute medical issues arise. Provide the patient individual, group therapy, substance use disorder counseling to give better insight and learn coping skills. Medications: Continue Effexor 75 mg daily for depression and anxiety symptoms. Continue Seroquel 200 mg at bedtime for mood stabilization. Patient received Invega long-acting injectable 234 mg injection. Will start Zyprexa Zydis 5 mg twice daily as needed for severe agitation. Continue other when necessary medications. Discharge patient to OUTPATIENT services upon a stabilization
[2019-12-21] MEDS: QUEtiapine 200 MG TAB PO SCH (20:16)
[2019-12-22] MEDS: NICOTINE 14MG/24HR PATCH TRANSDERM SCH ×2 (10:18→11:30)
[2019-12-22] MEDS: VENLAFAXINE HCL ER 75 MG CAP PO SCH ×2 (10:19→11:30)
[2019-12-22] MEDS: LORazepam 1 MG TAB PO PRN ×2 (11:32→19:05)
[2019-12-22] MEDS: OLANZapine ODT 5 MG TAB PO PRN (11:37)
[2019-12-22] MEDS: ACETAMINOPHEN TAB 325 MG TAB PO PRN (12:47)
--- NOTE | 2019-12-22 12:56 | P.PN ---
Progress Note - Text Progress Note Date: 12/22/19 Subjective: Patient was seen today as a cross coverage for . The patient was evaluated, chart reviewed, case discussed with the treatment team. Patient Reports feeling better today with less irritable mood and minimizes depression and anxiety symptoms. He denies feeling hopeless or suicidal and denies homicidal ideation. He denies any hallucinations, paranoid ideation, and no delusions could be elicited. Patient reports better sleep last night and denies any appetite problems. He denies any manic symptoms including a elevated mood, absence need to sleep due to increases goal-directed activities or irrational uninhibited behavior. Objective: Mental status examination; Appearance: The patient appears stated age, poorly groomed and dressed, no specific features. Gait/posture: Normal gait, Normal arm swinging: No abnormal movements. Attitude and behavior: engaged, cooperative, fair eye contact. Motor activity: Normal psychomotor activity Speech: Normal rate, tone. Mood: Anxious, depressed Affect: Restricted Thought form: goal-directed, linear, coherent. Thought content: Non-delusional, denies suicidal thoughts, denies homicidal thoughts, denies intentions or plans. Perception: Denies any auditory or visual hallucinations Attention: No impairment. Orientation: Patient patient was fully oriented to time place person and situation. Insight: Patient has fair insight about his psychiatric disorder. Judgment: Patient has fair judgment about his psychiatric treatment. Assessment: Major depressive disorder, severe without psychotic features. Alcohol use disorder, severe. Cannabis use disorder, moderate. Opioid use disorder, moderate. Methamphetamine use disorder, moderate. Plan: Continue inpatient level of care due to need for further stabilization on medication and continued to feel depressed and suicidal Precautions: Continue 15 minutes check for safety. Consider medical consultation if any acute medical issues arise. Provide the patient individual, group therapy, substance use disorder counseling to give better insight and learn coping skills. Medications: Continue Effexor 75 mg daily for depression and anxiety symptoms. Continue Seroquel 200 mg at bedtime for mood stabilization. Patient received Invega long-acting injectable 234 mg injection. Continue Zyprexa Zydis 5 mg twice daily as needed for severe agitation. Continue other when necessary medications. Discharge patient to OUTPATIENT services upon a stabilization
[2019-12-22] MEDS: ZIPRASIDONE 20 MG VIAL IM PRN (15:21)
[2019-12-22 15:48] LABS: AST 576 U/L (17-59); African American GFR (CKD) >90 (>60 ml/min/1.73 sqM); Albumin 4.7 g/dL (3.5-5.0); Alkaline Phosphatase 69 U/L (38-126); Anion Gap 8 mmol/L; Blood Urea Nitrogen 25 mg/dL (9-20); Carbon Dioxide 27 mmol/L (22-30); Chloride 103 mmol/L (98-107); Glucose 99 mg/dL (74-99); Non-African American GFR(CKD) >90 (>60 ml/min/1.73 sqM); Potassium 5.2 mmol/L (3.5-5.1); Sodium 138 mmol/L (137-145); Total Bilirubin 0.5 mg/dL (0.2-1.3); Total Protein 9.1 g/dL (6.3-8.2)
[2019-12-22 16:11] LABS: ALT 1090 U/L (4-49)
--- NOTE | 2019-12-22 17:10 | P.PN ---
Subjective Progress Note Date: 12/22/19 Principal diagnosis: Elevated liver enzymes Patient was seen and examined. No acute events overnight. Patient reports no complaints. He denies any chest pain, shortness of breath or palpitations. No nausea or vomiting. No fever or chills. Patient reports intermittent alcohol use but seems conservative when I attempt to quantify how much. Patient states that he drank a fifth of hard liquor prior to admission. He does have a history of hep C for which patient states that he has never seek treatment. Objective - Vital Signs Vital signs: Vital Signs Temp 97.7 F 12/20/19 06:08 Pulse 123 H 12/22/19 11:30 Resp 15 12/20/19 06:08 BP 121/76 12/22/19 11:30 Pulse Ox 98 12/19/19 06:47 Intake & Output 12/21/19 12/22/19 12/22/19 18:59 06:59 18:59 Weight 90.4 kg - Exam General: [non toxic], [no distress], [appears at stated age] Derm: [warm], [dry] Head: [atraumatic], [normocephalic], [symmetric] Eyes: [EOMI], [no lid lag], [anicteric sclera] Mouth: [no lip lesion], [mucus membranes moist] Cardiovascular: [S1S2 reg], [tachycardia], [positive DP pulse bilateral], Lungs: [CTA bilateral], [no rhonchi, no rales] , [no accessory muscle use] Abdominal: [soft], [ nontender to palpation], [no guarding], [no appreciable organomegaly] Ext: [no gross muscle atrophy], [no edema], [no contractures] Neuro: [no focal neuro deficits] Psych: [Alert], [oriented], [appropriate affect] - Labs CBC & Chem 7: 12/18/19 09:24 12/22/19 15:07 Labs: Abnormal Lab Results - Last 24 Hours (Table) 12/22/19 Range/Units 15:07 Potassium 5.2 H (3.5-5.1) mmol/L BUN 25 H (9-20) mg/dL AST 576 H (17-59) U/L ALT 1090 H (4-49) U/L Total Protein 9.1 H (6.3-8.2) g/dL Assessment and Plan Assessment: Elevated liver enzymes in the setting of alcohol abuse and hepatitis C Hyperkalemia, mild Elevated BUN Polysubstance abuse ALT 835, 1140, 1090. ALT 566, 687, 576. Total bilirubin within normal limits. Ammonia negative. Alpha-fetoprotein negative. Plans: Follow hepatitis C dinesh type and quantitative RNA. Follow liver ultrasound Doppler to rule out thrombosis. Repeat CMP tomorrow morning. Follow gastroenterology consultation. He will need adequate follow-up in the outpatient setting. CIWA protocol daily. Ativan as needed for alcohol withdrawal. Start thiamine. Potassium 5.2. Unknown etiology. Plans: Repeat potassium. BUN 25. Likely from dehydration. Plans: Encourage hydration by mouth. Repeat CMP tomorrow morning. UDS positive for TCA, amphetamine, methamphetamine, benzodiazepine, marijuana. Plans: Patient is advised to quit. Management per psychiatry.
[2019-12-22] MEDS: QUEtiapine 200 MG TAB PO SCH (21:09)
--- NOTE | 2019-12-23 09:47 | US ---
EXAMINATION TYPE: US abdomen limited DATE OF EXAM: 12/23/2019 COMPARISON: NONE CLINICAL HISTORY: r/o thrombosis, elevated LFT. Elevated LFT's EXAM MEASUREMENTS: Liver Length: 12.4 cm Gallbladder Wall: 0.2 cm CBD: 0.3 cm Right Kidney: 10.9 x 4.6 x 5.2 cm Pancreas: obscured by overlying bowel gas Liver: wnl, portal vein appeared patent Gallbladder: wnl Evidence for sonographic Avendano's sign: No CBD: wnl Right Kidney: wnl IMPRESSION: 1. Limited assessment pancreas. No acute process.
[2019-12-23] MEDS: THIAMINE 100 MG TAB PO SCH (09:54)
[2019-12-23] MEDS: LORazepam 1 MG TAB PO PRN ×2 (09:54→17:04)
[2019-12-23] MEDS: NICOTINE 14MG/24HR PATCH TRANSDERM SCH (09:54)
[2019-12-23] MEDS: VENLAFAXINE HCL ER 75 MG CAP PO SCH (09:54)
[2019-12-23] MEDS: OLANZapine ODT 5 MG TAB PO PRN ×2 (10:58→22:24)
[2019-12-23 11:01] LABS: AST 431 U/L (17-59); African American GFR (CKD) >90 (>60 ml/min/1.73 sqM); Albumin 4.3 g/dL (3.5-5.0); Alkaline Phosphatase 63 U/L (38-126); Anion Gap 7 mmol/L; Blood Urea Nitrogen 21 mg/dL (9-20); Carbon Dioxide 30 mmol/L (22-30); Chloride 104 mmol/L (98-107); Glucose 108 mg/dL (74-99); Non-African American GFR(CKD) 84 (>60 ml/min/1.73 sqM); Potassium 4.8 mmol/L (3.5-5.1); Sodium 141 mmol/L (137-145); Total Bilirubin 0.5 mg/dL (0.2-1.3); Total Protein 8.6 g/dL (6.3-8.2)
--- NOTE | 2019-12-23 11:11 | P.PN ---
Progress Note - Text Interval history: The patient is found in his room he follows me to an interview room. He reports feeling irritated that he is being forced to possibly attend inpatient chemical dependency treatment. He is aware that his therapist is filing an order for court ordered substance abuse treatment. He does have a hearing Monday for appointment of a guardian. The patient continues to demonstrate poor insight into his lack of compliance with outpatient mental healthcare his continued use of substances and his medical condition. His liver enzymes have elevated further. He has undergone an abdominal ultrasound which demonstrated no acute findings. Further lab work was ordered internal medicine is following. The patient continues to refuse group attendance. He offers no suggestions as to where he will stay upon discharge. Mental status exam: The patient is an overweight male hygiene is improved he is a disheveled appearance he is dressed in his own clothing he is wearing no socks or shoes. He has a staring eye contact. He initiates no conversation he maintains a blunted affect. He reports his mood is irritable today. He reports continued suicidal thoughts with a continued plan of cutting his wrists. He reports no thoughts of harming others he is endorsing no auditory or visual hallucinations or any specific delusions. He demonstrates no tangential thinking loose associations or flight of ideas. He is directable but does not invest in the conversation during our sessions. He demonstrates no ve rbal or physical aggressiveness he demonstrates no involuntary repetitive movements. Plan: The patient will continue on his current psychotropic medication. We are awaiting further evaluation of his elevated transaminases. We are awaiting appointment of a guardian. We will continue to monitor him for safety he is encouraged to participate in the milieu. We are monitoring his vital signs. He requires continued psychiatric hospitalization for his safety until other levels of external control are in place.
[2019-12-23 11:20] LABS: ALT 924 U/L (4-49)
[2019-12-23] MEDS: ACETAMINOPHEN TAB 325 MG TAB PO PRN (14:57)
[2019-12-23] MEDS: ZIPRASIDONE 20 MG VIAL IM PRN (17:30)
[2019-12-23] MEDS ORDERED: WATER FOR INJECTION, STERILE 10 ML IV ONE (17:33)
--- NOTE | 2019-12-23 18:33 | CONS ---
CONSULTATION DATE OF SERVICE: 12/23/2019 REASON FOR CONSULTATION: Elevated LFTs. HISTORY OF PRESENT ILLNESS: The patient is a 34-year-old white male with a history of alcohol abuse in the past and chronic hepatitis C infection diagnosed about 4 or 5 years ago, history of polysubstance abuse, history of chronic depression, admitted to the hospital because of suicidal ideation. Since being in the hospital, the patient was noted to have elevated serum transaminases, which have been gradually getting worse and hence we are consulted in regards to this issue. The patient is somewhat a poor historian and states that he has poor memory and cannot remember most of the details of his past medical history. The patient was diagnosed with chronic hepatitis C infection about 2 years ago. He did not seek any medical attention for treatment of chronic hepatitis C infection. He denies any abdominal pain. He reports no nausea, vomiting. No diarrhea or constipation. On further questioning, patient has been on multiple psychiatric medications, but he does not recall as to how long he has been on these medications. He however did mention that in April of last year, he was on no medications at that point. It is unclear whether this is true. In any event, the patient states that he has been started on Effexor, Depakote, Seroquel about 5 or 6 months ago. He also believes that he was started on Invega monthly IV intramuscular injections about 4 months ago. On review of his records in March of 2019, his serum transaminases were within normal limits. Starting in July of 2019, serum transaminases were slightly elevated and since then until today, his serum transaminases continued to progressively get worse. The patient stated that he stopped Depakote about 2 weeks ago as he felt that the medication was not helping him, but he does not give me any further details. PAST MEDICAL HISTORY: Significant for anxiety, depression, history of chronic hepatitis C infection, gastroesophageal reflux disease, hypertension. PAST SURGICAL HISTORY: None. MEDICATIONS: At home include Habitrol, Invega, Xanax, Depakote, Seroquel, Effexor. ALLERGIES: NONE. SOCIAL HISTORY: Chronic smoker and alcohol use. FAMILY HISTORY: Father coronary artery disease. Mother with rheumatoid arthritis. REVIEW OF SYSTEMS: CARDIOPULMONARY: He denies any chest pain, shortness of breath. GENITOURINARY: No dysuria or hematuria. MUSCULOSKELETAL: He denies any symptoms. NEUROLOGY unremarkable. PSYCHIATRIC as mentioned above. ENT/vision unremarkable. CONSTITUTIONAL: No recent weight loss. No fever, chills, night sweats. PHYSICAL EXAMINATION: He appears comfortable. No apparent distress. VITAL SIGNS: Stable. Blood pressure 117/81. The pulse rate 125 and temperature 97.7. HEENT examination unremarkable. Conjunctivae pink. Sclerae anicteric. Oral cavity no lesions. NECK: No JVD or lymph node enlargement. CHEST: Clear to auscultation. HEART: Regular rate and rhythm. ABDOMEN: Soft. Bowel sounds are positive. It was nontender and nondistended. EXTREMITIES: No pedal edema. SKIN: No rashes. NEURO: He is alert and oriented x3. No focal deficits. LABS: Done at the time of admission to the hospital, WBC 4.9, hemoglobin 13.4, platelets normal. Today, AST and ALT of 431 and 924 respectively. Yesterday AST was 576 and ALT was 1090 and the day before on December 21, AST was 687 and ALT was 1140. In March of 2019, the serum transaminases were normal. In March of 2019 serum transaminases were normal, in July of 2019, ALT and AST were in the range of 100 and 120 respectively. Since then they have continued to gradually increase. T/bili and alkaline phosphatase has always been within normal limits. Hepatitis serologies for A, B, and C were done and hepatitis C antibody was positive. HCV RNA still pending. Alpha fetoprotein is negative. Ultrasound of the abdomen done this morning showed normal-appearing liver and no gallstones. IMPRESSION: 1. Elevated serum transaminases for almost 4 months duration. The patient noted to have elevated LFTs since July of 2019 and the last documented normal LFTs were in March of 2019. The patient has been on multiple antidepressants as well as antipsychotic medications that appears to have been started in the last 4 months duration. He is noted to have worsening ALT and AST over the course of last 4 months, which makes it very likely we are dealing with medication induced hepatitis. The patient was on Depakote, which could be the reason, but he states that he stopped the medication about 2 weeks ago for unclear reasons. In any event, serum transaminases have slightly improved in the last 2 days. Hepatitis serologies did reveal positive hep C antibody but hepatitis A and B serologies were negative. Possibility of chronic liver disease such as autoimmune and metabolic liver disease also needs to be considered. 2. Positive hep C antibody. Rule out chronic hepatitis C infection. 3. History of polysubstance abuse. 4. History of alcohol abuse. RECOMMENDATIONS: 1. We will initiate workup for chronic liver disease. 2. Since his serum transaminases are gradually improving, at this time we will continue to monitor him closely and continue all his current medications. Hopefully this was Depakote related, which has been discontinued about 2 weeks ago. 3. Await the results of HCV RNA and genotype. 4. We will follow with you closely during his hospital stay. Thank you for this consultation. MMODL / IJN: [id number] /
[2019-12-23] MEDS: QUEtiapine 200 MG TAB PO SCH (20:39)
[2019-12-23 21:35] LABS: Alpha Fetoprotein, Tumor Mkr 3.3 ng/mL (0.0-7.9)
[2019-12-23 21:41] LABS: Ferritin 137.9 ng/mL (22.0-322.0)
[2019-12-23 22:14] LABS: % Iron Saturation 24.12 (15.00-50.00)
[2019-12-23 22:36] LABS: Protein, Total 7.7 g/dL (6.2-8.2)
[2019-12-24] MEDS: VENLAFAXINE HCL ER 75 MG CAP PO SCH (09:16)
[2019-12-24] MEDS: NICOTINE 14MG/24HR PATCH TRANSDERM SCH (09:16)
[2019-12-24] MEDS: THIAMINE 100 MG TAB PO SCH (09:16)
--- NOTE | 2019-12-24 10:24 | P.PN ---
Progress Note - Text Interval history: The patient's found in his room he prefers to speak in his room today he reports that he has no questions or concerns regarding medications. He continues to abstain from group participation. He reports he did not eat this morning. Lab results were reviewed his transaminases are mildly improved from yesterday. It appears he did complete a screening to attend inpatient chemical dependency treatment we are awaiting a placement date. Staff reported he slept 7 hours last evening. Mental status exam: The patient is an overweight male appearing his stated age. He has a disheveled appearance hygiene grooming impaired. He is lying in bed he has poor eye contact today. Speech is nonspontaneous she prov ides brief answers to questions. He states today these having no suicidal ideation. He is reporting no homicidal ideation. He is endorsing no auditory or visual hallucinations or specific delusions. Insight and judgment remain impaired. He demonstrates no verbal or physical aggressiveness he demonstrates no involuntary repetitive movements. Plan: The patient will continue on his current psychotropic medications. We are awaiting input from [facility] regarding placement date for inpatient chemical dependency treatment. During this hospitalization we have initiated a petition for a treatment order for chemical dependency and initiated a petition for appointment of a public guardian. Vital signs reviewed. We continue to encourage participation in the milieu.
[2019-12-24 10:44] LABS: Albumin 3.97 g/dL (3.80-4.90); Gamma Globulin 1.9 g/dL (0.70-1.50)
[2019-12-24 12:40] LABS: Ceruloplasmin 32.5 mg/dL (20.0-60.0)
[2019-12-24] MEDS: LORazepam 1 MG TAB PO PRN ×3 (12:48→20:43)
[2019-12-24] MEDS: OLANZapine ODT 5 MG TAB PO PRN (13:36)
[2019-12-24] MEDS: ZIPRASIDONE 20 MG VIAL IM PRN (13:36)
[2019-12-24 14:22] VITALS: BMI 30.3
[2019-12-24 15:36] LABS: ALT 706 U/L (4-49); AST 260 U/L (17-59); African American GFR (CKD) >90 (>60 ml/min/1.73 sqM); Alkaline Phosphatase 60 U/L (38-126); Anion Gap 6 mmol/L; Blood Urea Nitrogen 20 mg/dL (9-20); Calcium 9.5 mg/dL (8.4-10.2); Carbon Dioxide 27 mmol/L (22-30); Chloride 106 mmol/L (98-107); Glucose 119 mg/dL (74-99); Non-African American GFR(CKD) >90 (>60 ml/min/1.73 sqM); Potassium 4.6 mmol/L (3.5-5.1); Sodium 139 mmol/L (137-145); Total Bilirubin 0.5 mg/dL (0.2-1.3); Total Protein 7.9 g/dL (6.3-8.2)
[2019-12-24] MEDS: QUEtiapine 200 MG TAB PO SCH (20:42)
--- NOTE | 2019-12-25 09:23 | P.PN ---
Progress Note - Text Interval history: The patient is found in his room he refuses to get up to speak in an interview room. He indicates his mood is okay he asks when he can be discharged. Again we are trying to arrange inpatient chemical dependency treatment. He remains compliant with medication. He continues to isolate in his room other than for meals. No report of behavioral disturbance since yesterday morning. He has no other questions or concerns. He indicates that he feels frustrated that he has been petitioned for court ordered substance abuse treatment. Again he completely lacks insight into the nature of his illness and need for treatment. Mental status exam: The patient is lying in bed he makes no eye contact he provides brief answers to questions asked he demonstrates no spontaneous speech during our interaction this morning. He has a disheveled appearance he is dressed in his own clothing. Eye contact is poor. He demonstrates no verbal or physical aggressiveness he demonstrates no involuntary repetitive movements. He denies having any suicidal or homicidal ideation intent or plan. He is reporting no auditory or visual hallucinations or any specific delusions. There is no observed evidence of psychosis. Affect remains blunted. Plan: The patient will continue on his current psychotropic medication. We have petition for her appointment of a public guardian and [facility] has petition for a chemical dependency treatment order. Vital signs reviewed there is no evidence of any withdrawal symptoms vitals are within normal limits. We will continue to follow recommendations provided by internal medicine regarding his elevated transaminases. Although he is obstinate he is encouraged to attend groups and participate in the milieu.
[2019-12-25 11:31] LABS: ANA Pattern Speckled
[2019-12-25] MEDS: VENLAFAXINE HCL ER 75 MG CAP PO SCH (13:40)
[2019-12-25] MEDS: THIAMINE 100 MG TAB PO SCH (13:40)
[2019-12-25] MEDS: NICOTINE 14MG/24HR PATCH TRANSDERM SCH (13:40)
[2019-12-25] MEDS ORDERED: ZIPRASIDONE 20 MG VIAL IM ONE (13:41)
[2019-12-25] MEDS ORDERED: WATER FOR INJECTION, STERILE 10 ML IV ONE (13:41)
[2019-12-25] MEDS: LORazepam 1 MG TAB PO PRN ×2 (13:41→16:00)
[2019-12-25] MEDS: ZIPRASIDONE 20 MG VIAL IM PRN (13:43)
[2019-12-25] MEDS: OLANZapine ODT 5 MG TAB PO PRN (14:15)
[2019-12-25 15:00] LABS: HCV Qualitative Result DETECTED (Not detected)
--- NOTE | 2019-12-25 17:29 | PN ---
PROGRESS NOTE DATE OF DICTATION: 12/25/2019 This patient is a 34-year-old white male admitted to the mental health unit with depression and suicidal ideation. While in the hospital he was noted to have elevated serum transaminases. In fact, his serum transaminases have been gradually increasing since July of last year. The AST and ALT peaked at 687 and 1140 about 3 days ago, and since then they are gradually improving. Today AST is 260, ALT is 706. All workup for chronic liver disease has been negative except for ARIEL that was positive at 1:160. Antimitochondrial antibodies negative. HCV RNA was positive. Genotype is 3A. The patient denies any symptoms. PHYSICAL EXAMINATION: He appears comfortable. No apparent distress. VITAL SIGNS: Stable. Blood pressure 105/53, pulse rate 56, and temperature 97.9. HEENT examination unremarkable. Conjunctivae pink. Sclerae anicteric. Oral cavity no lesions. NECK: No JVD or lymph node enlargement. CHEST: Clear to auscultation. HEART: Regular rate and rhythm. ABDOMEN: Soft. Bowel sounds are positive. No organomegaly. EXTREMITIES: No pedal edema. SKIN: No rashes. NEUROLOGIC: He is alert and oriented x3. No focal deficits. LABS: Today CBC was not done. AST 260, ALT 706. T-bilirubin and alkaline phosphatase are within normal limits. Workup for chronic liver disease: ARIEL positive 1:160, but gamma globulins are slightly elevated. Iron, TIBC and ferritin are within normal limits. Ceruloplasmin 32. Alpha-1 antitrypsin 156. AFP 2.7. HCV RNA positive. Genotype 3. IMPRESSION: 1. Elevated liver function tests, probably medication-related. LFTs are gradually improving after Depakote has been discontinued about 2 weeks ago. He remains on other antipsychotic medications. 2. Chronic hepatitis C with a genotype of 3. RECOMMENDATIONS: Discussed the labs with the patient today. Since they are gradually improving, we will continue to monitor him closely. In regard to the chronic hepatitis C infection, he was advised to follow up in the office in 2 weeks following discharge from the hospital and we will make arrangements for treatment for chronic hepatitis C. Also monitor LFTs on a weekly basis. Thank you for this consultation. MMODL / IJN: [id number] /
[2019-12-25] MEDS: QUEtiapine 200 MG TAB PO SCH (20:59)
[2019-12-26 06:48] VITALS: TEMP 98.4
--- NOTE | 2019-12-26 10:19 | P.PN ---
Progress Note - Text Interval history: The patient's found in his room. He refuses to follow me to an interview room. He indicates his mood is okay. He is reporting no suicidal thoughts it appears that he is scheduled to start inpatient chemical dependency treatment tomorrow at [place]. He continues to refrain from participating in the milieu including groups. He has been seen by gastroenterology those notes were reviewed. They're recommending outpatient follow-up for treatment of his chronic hepatitis C infection. They feel that they acute exacerbation of the transaminase elevation may have been due to the Depakote. Mental status exam: The patient's overweight male he is lying in bed he makes no eye contact he provides brief responses to questions. He initiates no spontaneous speech. He indicates his mood is okay. He is reporting no suicidal or homicidal thoughts. He is endorsing no auditory or visual hallucinations or any specific delusions. He demonstrates no evidence of hypomania or ronald. He demonstrates no verbal or physical aggressiveness he demonstrates no involuntary movements. Plan: The patient will continue on his current psychotropic medications I will lower the bedtime Seroquel 400 mg. We will verify his next Invega Sustenna systemic injection. He will continue on the Effexor as written. So far plan is for him to transition to [facility] and for inpatient chemical dependency treatment as directed by the court and his guardian. Vital signs reviewed.
[2019-12-26] MEDS: VENLAFAXINE HCL ER 75 MG CAP PO SCH ×3 (10:48→13:16)
[2019-12-26] MEDS: NICOTINE 14MG/24HR PATCH TRANSDERM SCH ×3 (10:48→13:16)
[2019-12-26] MEDS: THIAMINE 100 MG TAB PO SCH ×4 (10:48→13:16)
[2019-12-26 10:52] LABS: AST 237 U/L (17-59); African American GFR (CKD) >90 (>60 ml/min/1.73 sqM); Albumin 3.5 g/dL (3.5-5.0); Alkaline Phosphatase 52 U/L (38-126); Anion Gap 7 mmol/L; Blood Urea Nitrogen 18 mg/dL (9-20); Calcium 9.2 mg/dL (8.4-10.2); Carbon Dioxide 25 mmol/L (22-30); Chloride 110 mmol/L (98-107); Glucose 83 mg/dL (74-99); Non-African American GFR(CKD) >90 (>60 ml/min/1.73 sqM); Potassium 4.6 mmol/L (3.5-5.1); Sodium 142 mmol/L (137-145); Total Bilirubin 0.4 mg/dL (0.2-1.3); Total Protein 7.2 g/dL (6.3-8.2)
[2019-12-26 10:57] LABS: ALT 568 U/L (4-49)
[2019-12-26] MEDS: LORazepam 1 MG TAB PO PRN ×2 (13:17→17:08)
[2019-12-26] MEDS ORDERED: WATER FOR INJECTION, STERILE 10 ML IV ONE (13:19)
[2019-12-26] MEDS ORDERED: ZIPRASIDONE 20 MG VIAL IM ONE (13:19)
[2019-12-26] MEDS: ZIPRASIDONE 20 MG VIAL IM PRN (13:19)
[2019-12-26 14:28] VITALS: BP 137/77; PULSE 101; RESP 18
[2019-12-26] MEDS: OLANZapine ODT 5 MG TAB PO PRN ×2 (15:15→20:55)
[2019-12-26] MEDS ORDERED: QUEtiapine 100 MG TAB PO SCH (21:00)
[2019-12-27] MEDS: NICOTINE 14MG/24HR PATCH TRANSDERM SCH (07:58)
[2019-12-27] MEDS: VENLAFAXINE HCL ER 75 MG CAP PO SCH (07:59)
[2019-12-27] MEDS: THIAMINE 100 MG TAB PO SCH (07:59)
--- NOTE | 2019-12-27 08:57 | P.DS ---
Providers Date of admission: 12/17/19 17:55 Expected date of discharge: 12/27/19 Attending physician: Adán Hill Consults: 12/17/19 18:53 Consult Physician Routine Consulting Provider: Doron James Consult Reason/Comments: H&P and medical Do you want consulting provider notified?: Yes 12/21/19 18:33 Consult Physician Routine Consulting Provider: Maycol Rodrigues Reason/Comments: elevated liver enzymes EtOH Hep C Do you want consulting provider notified?: Yes Primary care physician: [facility] None - Discharge Diagnosis(es) (1) Depression Current Visit: Yes Status: Acute Priority: High (2) Alcohol use disorder, severe, dependence Current Visit: No Status: Acute Priority: High (3) Cannabis use disorder, moderate, dependence Current Visit: Yes Status: Acute Priority: Medium (4) Methamphetamine use disorder, moderate Current Visit: Yes Status: Acute Priority: Medium Hospital Course: Brief summary of admission note: This patient is a 34-year-old male who was admitted to the mental health unit through the emergency room with a complaint of suicidal ideation. He indicated that he wanted to cut his wrists. He has had numerous hospitalizations both psychiatrically and medically in the recent past. He carries a diagnosis of depression alcohol cannabis opiate and methamphetamine use disorders. He indicated he hadn't slept in several nights he again is homeless. He had not been showering or caring for his activities of daily living. He had been consuming alcohol excessively methamphetamine and marijuana were in his drug screen. He has failed several placement attempts and continues to not comply with outpatient treatment. For full details please refer to my psychiatric evaluation dated 12/18/2019. Summary of hospital course: The patient was admitted to the mental health unit voluntarily. We reviewed his presented symptoms and treatment options. He received his next injection of Invega Sustenna 234 mg Seroquel was continued as was Effexor XR. The patient was compliant with his medications. He was seen by internal medicine for routine history and physical exam. His transaminases were markedly elevated. The Depakote was quickly discontinued. He does have a history of chronic hepatitis C infection. He was seen by internal medicine and gastroenterology. They feel that they transaminases were exacerbated by use of Depakote. They would like him to follow up as an outpatient to treatment for the hepatitis C infection. The patient rarely complied with group. He did go down for meals but otherwise stayed in his room. It has become clear that the patient is not able to make good choices in terms of caring for himself or his treatment area we petition the court for appointment of a guardian and a guardian was appointed. [facility] was also encouraged to file for a substance abuse order which was granted and the patient is ordered to attend treatment at [facility]. Mental status exam: The patient is an overweight male appearing his stated age hygiene is adequate he has a disheveled appearance he is dressed in his own clothing which is oversized. Eye contact is staring in nature. He indicates he has no hopeless thoughts he is reporting no suicidal ideation intent or plan. He is reporting no homicidal ideation intent or plan. He reports some feelings of anxiety about transferring to [facility]. He is demonstrating no tangential thinking loose associations or flight of ideas. He demonstrates no verbal or physical aggressiveness. He demonstrates no involun tary repetitive movements. Insight and judgment are limited fortunately a guardian has been appointed to assist him in decision making. He remains oriented to person place and date. He maintains a blunted affect. Impressions 1. Depression unspecified, rule out bipolar depression versus major depressive disorder, alcohol use disorder severe, cannabis use disorder moderate, opiate use disorder moderate, methamphetamine use disorder moderate Plan: The patient will be discharged mental health unit today he will be transferred directly to [facility] for inpatient chemical dependency treatment w hich has been court ordered. He will continue on Effexor XR 75 mg daily Seroquel 100 mg at bedtime Invega Sustenna 234 mg every 28 days his next dose is due 01/15/2020. He is instructed to abstain from any use of alcohol marijuana or illicit drugs as these will elevate his safety risk. At this time there is no imminent safety risk is appropriate for transition to inpatient chemical dependency treatment. At this time the patient has required use of Seroquel with the invega to stabilize mood. He has formerly been tried on monotherapy with invega alone Seroquel alone and Abilify. It is possible that one of these antipsychotics could be discontinued in the outpatient setting. We need a consistent time where he is sober to evaluate his psychiatric symptoms and he needs to continue complying with outpatient treatment. Patient Condition at Discharge: Stable Plan - Discharge Summary New Discharge Prescriptions: New QUEtiapine [SEROquel] 100 mg PO HS tab Continue Paliperidone IM [Invega Sustenna] 234 mg IM Q30D Venlafaxine HCl [Effexor XR] 75 mg PO DAILY #7 cap Nicotine 14Mg/24Hr Patch [Habitrol] 1 patch TRANSDERM DAILY #14 patch Discontinued ALPRAZolam [Xanax] 1 mg PO Q8HR PRN 3 Days #9 tab PRN Reason: Anxiety Divalproex ER [Depakote ER] 1,000 mg PO HS #7 tab QUEtiapine FUMARATE [SEROquel] 200 mg PO HS #7 tab Paliperidone IM [Invega Sustenna] 234 mg IM QMONTH Discharge Medication List Paliperidone IM [Invega Sustenna] 234 mg IM Q30D 12/11/19 [History] Venlafaxine HCl [Effexor XR] 75 mg PO DAILY #7 cap 12/13/19 [Rx] Nicotine 14Mg/24Hr Patch [Habitrol] 1 patch TRANSDERM DAILY #14 patch 12/27/19 [Rx] QUEtiapine [SEROquel] 100 mg PO HS tab 12/27/19 [Rx] Follow up Appointment(s)/Referral(s): None,[facility] [Primary Care Provider] - 1-2 days Palak Douglass NPC [Nurse Practitioner] - 2 Weeks Activity/Diet/Wound Care/Special Instructions: Follow up regarding High AST/ALT levels regarding Hepatitis C Activity and diet as tolerated. Avoid the use of street drugs and alcohol. Take all medications as prescribed. When you are in need of refills on your medications please contact your medical provider and/or outpatient psychiatrist to have this done. Please go to scheduled outpatient appointment for aftercare treatment. If symptoms return or become worse, call the crisis line at and/or go to the nearest emergency room for evaluation.
[2019-12-27] MEDS: LORazepam 1 MG TAB PO PRN (09:48)
[2019-12-27] MEDS ORDERED: ZIPRASIDONE 20 MG VIAL IM SCH (10:00)
== END 2019-12-27 10:01 | DRG 881 ==
LOC: EC 12:40 → 3MHU 17:55
PROVIDERS: ADMIT Psychiatry & Neurology Psychiatry; ATTEND Psychiatry & Neurology Psychiatry
DX: F32.9 Major depressive disorder, single episode, unspecified (principal); R45.851 Suicidal ideations; F15.20 Other stimulant dependence, uncomplicated; F11.20 Opioid dependence, uncomplicated; Z91.19 Patient's noncompliance with other medical treatment and regimen; B18.2 Chronic viral hepatitis C; K75.9 Inflammatory liver disease, unspecified; F10.20 Alcohol dependence, uncomplicated; F12.20 Cannabis dependence, uncomplicated; E86.0 Dehydration; E87.5 Hyperkalemia; F40.10 Social phobia, unspecified; F60.0 Paranoid personality disorder; Z91.5 Personal history of self-harm; I10 Essential (primary) hypertension; K21.9 Gastro-esophageal reflux disease without esophagitis; M54.9 Dorsalgia, unspecified; E66.3 Overweight; Z68.30 Body mass index [BMI] 30.0-30.9, adult; F17.200 Nicotine dependence, unspecified, uncomplicated; Z71.6 Tobacco abuse counseling; Z79.899 Other long term (current) drug therapy; Z59.0 Homelessness; Z82.49 Family history of ischemic heart disease and other diseases of the circulatory system; Z82.61 Family history of arthritis
CPT/HCPCS: 76705; 80053; 80061; 80164; 80306; 82075; 82103; 82105; 82140; 82390; 82728; 83036; 83516; 83540; 83550; 84165; 84443; 85025; 85610; 86038; 86039; 87522; 87902; 99285

== ENCOUNTER 2020-02-28 07:42 | Inpatient (IN) | payer MEDICAID, OTHER ==
--- NOTE | 2020-02-28 08:04 | ED ---
General Adult HPI - General Chief complaint: Psychiatric Symptoms Stated complaint: EPS eval Time Seen by Provider: 02/28/20 07:55 Source: patient, RN notes reviewed, old records reviewed Mode of arrival: ambulatory Limitations: no limitations - History of Present Illness Initial comments: This is a 34-year-old male who presents emergency Department complaining that he is suicidal. Patient states he is a drug addict but he hasn't used in a few days. Patient states he did drink a pint of alcohol last night but that was for a went to bed. Patient states he woke up suicidal he doesn't have a specific plan. Patient states that he would never comes to mind. Patient states he does have a history of suicide attempts and depression. Patient denies any physical complaints today. Patient denies hearing any voices or having any hallucinations. Patient denies any chest pain difficult breathing shortness of breath. Patient denies any recent fever chills cough. Patient denies headache patient denies numbness weakness per patient denies any abdominal pain patient denies nausea vomiting diarrhea. Patient states he is a smoker. - Related Data Home Medications Medication Instructions Recorded Confirmed No Known Home Medications 02/10/20 02/28/20 Allergies Allergy/AdvReac Type Severity Reaction Status Date / Time No Known Allergies Allergy Verified 02/28/20 11:18 Review of Systems ROS Statement: Those systems with pertinent positive or pertinent negative responses have been documented in the HPI. ROS Other: All systems not noted in ROS Statement are negative. Past Medical History Past Medical History: GERD/Reflux, Hypertension Additional Past Medical History / Comment(s): Hepatitis C, DDD, back pain, bilateral carpel tunnel syndrome. ETOH occassionally drinks 1 5th vodka more than 3 times a week. He reports that he has heart disease that was found when he had kidney problems but he denies having a stress test or cardiac catheterization. History of Any Multi-Drug Resistant Organisms: None Reported MDRO Source:: unknown Past Surgical History: No Surgical Hx Reported Past Anesthesia/Blood Transfusion Reactions: Unable to Obtain Additional Past Anesthesia/Blood Transfusion Reaction / Comment(s): Pt states he has never had surgery. Past Psychological History: Anxiety, Depression Smoking Status: Current every day smoker Past Alcohol Use History: Occasional Past Drug Use History: Heroin, IV Drug Use, Marijuana, Methamphetamine - Past Family History Father Family Medical History: Coronary Artery Disease (CAD) Additional Family Medical History / Comment(s): Father is . Mother Family Medical History: Rheumatoid Arthritis (RA) Additional Family Medical History / Comment(s): Mother is . General Exam - General Exam Comments Initial Comments: GENERAL: Patient is well-developed and well-nourished. Patient is nontoxic and well- hydrated and is in no acute distress. ENT: Neck is soft and supple. No significant lymphadenopathy is noted. Neck has full range of motion without eliciting any pain. EYES: The sclera were anicteric and conjunctiva were pink and moist. Extraocular movements were intact and pupils were equal round and reactive to light. Eyelids were unremarkable. PULMONARY: Unlabored respirations. Good breath sounds bilaterally. No audible rales rh onchi or wheezing was noted. CARDIOVASCULAR: There is a regular rate and rhythm without any murmurs gallops or rubs. ABDOMEN: Soft and nontender with normal bowel sounds. SKIN: Skin is clear with no lesions or rashes and otherwise unremarkable. NEUROLOGIC: Patient is alert and oriented x3. Cranial nerves II through XII are grossly intact. Motor and sensory are also intact. Normal speech, volume and content. Patient did not have any facial drooping MUSCULOSKELETAL: Normal extremities with adequate strength and full range of motion. No lower extremity swelling or edema. No calf tenderness. LYMPHATICS: No significant lymphadenopathy is noted PSYCHIATRIC: Patient states he is suicidal and depressed but he does not have a plan currently. Patient denies homicidal ideations. Limitations: no limitations Course Vital Signs 02/28/20 07:51 Temperature 97.7 F Pulse Rate 64 Respiratory 18 Rate Blood Pressure 128/80 O2 Sat by Pulse 100 Oximetry Medical Decision Making - Medical Decision Making EPS evaluated the patient and decided to admit the patient. Patient was petitioned and I filled out a clinical certification to have the patient admitted - Lab Data Lab Results 02/28/20 Range/Units 08:20 Urine Opiates Screen Not Detected (NotDetected) Ur Oxycodone Screen Not Detected (NotDetected) Urine Methadone Screen Detected H (NotDetected) Ur Propoxyphene Screen Not Detected (NotDetected) Ur Barbiturates Screen Not Detected (NotDetected) U Tricyclic Antidepress Not Detected (NotDetected) Ur Phencyclidine Scrn Not Detected (NotDetected) Ur Amphetamines Screen Detected H (NotDetected) U Methamphetamines Scrn Detected H (NotDetected) U Benzodiazepines Scrn Detected H (NotDetected) Urine Cocaine Screen Not Detected (NotDetected) U Marijuana (THC) Screen Detected H (NotDetected) Disposition Clinical Impression: Polysubstance abuse, Depression, Suicidal ideations Disposition: ADMITTED IP TO THIS HOSP Referrals: None,Stated [Primary Care Provider] - 1-2 days Time of Disposition: 12:11
[2020-02-28 08:57] LABS: Amphetamine Screen,Urine Detected (NotDetected); Benzodiazepines Screen,Urine Detected (NotDetected); Cocaine Screen,Urine Not Detected (NotDetected); Opiate Screen,Urine Not Detected (NotDetected); Phencyclidine Screen,Urine Not Detected (NotDetected); Urn Cannabinoid Scrn Detected (NotDetected)
[2020-02-28 08:58] LABS: Barbiturate Screen,Urine Not Detected (NotDetected); Methadone Screen, Urine Detected (NotDetected); Oxycodone Screen, Urine Not Detected (NotDetected); Tricyclic Antidepressant,Urine Not Detected (NotDetected)
[2020-02-28] MEDS ORDERED: ALPRAZolam 1 MG TAB PO STA (12:10)
[2020-02-28] MEDS ORDERED: MAGNESIUM HYDROXIDE 2,400 MG/10 ML CUP PO PRN (13:08)
[2020-02-28] MEDS ORDERED: MAG HYDROX/AL HYDROX/SIMETH 30 ML CUP PO PRN (13:08)
[2020-02-28] MEDS: NICOTINE 14MG/24HR PATCH TRANSDERM SCH (14:22)
[2020-02-28] MEDS: hydrOXYzine PAMOATE 25 MG CAP PO PRN (15:28)
[2020-02-28] MEDS: QUEtiapine 100 MG TAB PO SCH (21:40)
[2020-02-29] MEDS: VENLAFAXINE HCL ER 75 MG CAP PO SCH (09:37)
[2020-02-29] MEDS: NICOTINE 14MG/24HR PATCH TRANSDERM SCH (09:37)
[2020-02-29] MEDS: hydrOXYzine PAMOATE 25 MG CAP PO PRN (09:37)
--- NOTE | 2020-02-29 09:55 | P.HP ---
Psychiatric H&P - . H&P Date: 02/29/20 History & Physical: Allergies Allergy/AdvReac Type Severity Reaction Status Date / Time No Known Allergies Allergy Verified 02/28/20 11:18 Vital Signs Temp 99.4 F 02/28/20 21:49 Pulse 128 H 02/28/20 15:36 Resp 18 02/28/20 15:36 BP 120/75 02/28/20 15:36 Pulse Ox 98 02/28/20 15:36 Intake & Output 02/28/20 02/29/20 02/29/20 18:59 06:59 18:59 Weight 83.325 kg Laboratory Last Values Urine Opiates Screen Not Detected (NotDetected) 02/28/20 08:20 Ur Oxycodone Screen Not Detected (NotDetected) 02/28/20 08:20 Urine Methadone Screen Detected (NotDetected) H 02/28/20 08:20 Ur Propoxyphene Screen Not Detected (NotDetected) 02/28/20 08:20 Ur Barbiturates Screen Not Detected (NotDetected) 02/28/20 08:20 U Tricyclic Antidepress Not Detected (NotDetected) 02/28/20 08:20 Ur Phencyclidine Scrn Not Detected (NotDetected) 02/28/20 08:20 Ur Amphetamines Screen Detected (NotDetected) H 02/28/20 08:20 U Methamphetamines Scrn Detected (NotDetected) H 02/28/20 08:20 U Benzodiazepines Scrn Detected (NotDetected) H 02/28/20 08:20 Urine Cocaine Screen Not Detected (NotDetected) 02/28/20 08:20 U Marijuana (THC) Screen Detected (NotDetected) H 02/28/20 08:20 02/29/20 08:19 IDENTIFYING DATA: This patient is a 34-year-old male, who is homeless as unmarried who was admitted to the mental health unit through the emergency room with the complaint of suicidal ideation. HPI: Patient presented to the hospital yesterday to the emergency department stating that he was suicidal depressed with no plan. Patient stated at that time that he is a "drug addict". He spoke about drinking a pint of alcohol last night. Patient was found to have bedbugs and needed to take a shower this morning. 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 Be anxious and moving his legs constantly during the interview. Patient was very brief and appeared to be distracted. He spoke about not having anywhere to go and being homeless. He states that he's been sleeping in "random apartments on the floor". He claims that he has not been following up with his [facility] appointments and has not has his Invega Sustenna injection in several months. He states that he wants Xanax or Ativan at this time. He admits to depressed mood and suicidal thoughts however no plan. He states that he had poor sleep last night fair appetite. Patient denies any homicidal ideations intent or plan. At this time patient denies any auditory or visual hallucinations. Patient denies any flight of ideas racing thoughts and increased in goal directed behavior. Patient admits to using cigarettes, methadone, methamphetamine, benzodiazepines, and marijuana however does not give quantity or frequency. PAST PSYCHIATRIC HISTORY: The patient has had numerous inpatient psychiatric admissions he was here just over 1 month ago he has been medically hospitalized as well. He has not had approximate 7 admissions since October 2017. He has been on other mental health unit as well. He has a history of 3 suicide attempts via overdoses and cutting his wrist. He is open with community mental health but noncompliant with treatment. He is willing to receive treatment here he signed in voluntarily he is compliant with medication. He is taking Seroquel 200 mg at bedtime Effexor XR 75 mg daily. He has been on Wellbutrin and Lexapro Xanax or using clonidine and trazodone. PMH: Hepatitis C, GERD ALLERGIES: as per EMR CHEMICAL DEPENDENCY HISTORY: as per HPI FAMILY PSYCHIATRIC/SUBSTANCE USE HISTORY: States that "everybody on my mother's side" had mental illness. SOCIAL HISTORY: Patient was born and raised in [place] and is currently homeless and has no kids is unmarried and completed up to 12th grade. Patient claims that he is unemployed and does not collect any benefits. MENTAL STATUS EXAM: General Appearance: Patient appears to be older than stated age is alert, difficult to redirect and appears to be anxious and evasive. Patient appears to have poor hygiene and grooming. Wearing hospital gown. Behavior: Patient is seated without any agitated behavior. Appears to be anxious Speech: Patient's speech is fluent and nonpressured. Mood/Affect: Patient reports their mood is depressed and anxious, affect is congruent Suicidality/Homicidality: Patient denies having any homicidal ideation intent or plan. Patient admitted to suicidal thoughts however no intent or plan Perceptions: Patient denies any visual hallucinations and denies any auditory hallucinations Though content/process: There is no evidence of any delusional thought content and thought process is linear and goal-directed. Focused on Xanax or Ativan. Memory and concentration: AOX3, grossly intact for the purposes of this session. Can spell "WORLD" backwards Judgment and insight: poor STRENGTHS/WEAKNESSES: strength is that patient is resilient. Weakness is that patient has poor judgment and is impulsive INTELLECT: average IMPRESSIONS: Mood disorder unspecified, rule out substance-induced mood disorder alcohol use disorder cannabis use disorder moderate opioid use disorder moderate methamphetamine use disorder moderate Nicotine dependence PLAN: -Patient is admitted under involuntary status to MHU for stabilization of psychiatric symptoms and safety. -Medications : Will start patient on Seroquel 100 mg daily at bedtime for mood stabilization/insomnia. Patient restarted on Effexor 75 mg daily for anxiety/mood. Patient will be given Invega Sustenna 156 mg IM injection today as patient has missed his dose of 234 mg 2 months ago and will need to be restarted on this. Patient will be due for his next Invega Sustenna 156 mg IM dose in one week. Vistaril 25 mg every 6 hours when necessary for anxiety. -Geodon PRN for agitation/aggression -CIWA protocol with Ativan PRN for ETOH withdrawal -Patient was counselled on substance abuse -Patient was informed of the risks, benefits and side effects of the medication and patient verbally consented to taking the medications. -Internal Medicine consult to perform medical evaluation and physical. -NRT - nicotine patch -SW on board for discharge planning. Encourage patient to participate in groups to work on coping skills. 02/29/20 09:55
[2020-02-29] MEDS: LORazepam 1 MG TAB PO PRN ×2 (10:56→21:41)
[2020-02-29 11:20] LABS: Basophils % (A) 1 %; Eosinophils # (A) 0.1 k/uL (0-0.7); Eosinophils % (A) 2 %; HCT 44.3 % (39.0-53.0); HGB 15.2 gm/dL (13.0-17.5); Lymphocytes # (A) 2.1 k/uL (1.0-4.8); Lymphocytes % (A) 39 %; MCH 28.5 pg (25.0-35.0); MCHC 34.2 g/dL (31.0-37.0); MCV 83.2 fL (80.0-100.0); Mean Platelet Volume 10.7; Monocytes # (A) 0.2 k/uL (0-1.0); Monocytes % (A) 4 %; Neutrophils # (A) 2.8 k/uL (1.3-7.7); Neutrophils % (A) 51 %; Platelet Count 158 k/uL (150-450); RBC 5.33 m/uL (4.30-5.90); RDW 13.1 % (11.5-15.5); WBC 5.5 k/uL (3.8-10.6)
[2020-02-29 11:31] LABS: ALT 170 U/L (4-49); AST 62 U/L (17-59); African American GFR (CKD) >90 (>60 ml/min/1.73 sqM); Albumin 4.2 g/dL (3.5-5.0); Alkaline Phosphatase 57 U/L (38-126); Anion Gap 8 mmol/L; Blood Urea Nitrogen 12 mg/dL (9-20); Calcium 9.6 mg/dL (8.4-10.2); Carbon Dioxide 25 mmol/L (22-30); Chloride 109 mmol/L (98-107); Cholesterol 163 mg/dL (<200); Glucose 93 mg/dL (74-99); HDL Cholesterol 33 mg/dL (40-60); LDL Cholesterol,Calculated 106 mg/dL (0-99); Non-African American GFR(CKD) >90 (>60 ml/min/1.73 sqM); Potassium 4.2 mmol/L (3.5-5.1); Sodium 142 mmol/L (137-145); Total Bilirubin 0.4 mg/dL (0.2-1.3); Total Protein 8.1 g/dL (6.3-8.2); Triglycerides 118 mg/dL (<150)
[2020-02-29] MEDS ORDERED: PALIPERIDONE IM 156 MG/ML SYG IM ONE (12:00)
--- NOTE | 2020-02-29 17:20 | P.MDCNMH ---
History of Present Illness H&P Date: 02/29/20 Chief Complaint: medical management 34-year-old male with PMH of hepatitis C, "heart disease" that he says was diagnosed at [facility] last year, IV drug use, chronic alcohol abuse presents the ED for suicidal ideation. [facility] physicians has been consulted for medical management of this patient. Patient currently complains of headaches. He is unable to describe his h eadaches but attributes them to E and withdrawal. He also complains of severe anxiety. He otherwise has no complaints. He denies any lower extremity edema, nausea or vomiting, fever chills, cough, chest pain, shortness of breath, palpitations, changes in urination or bowel habits. No changes in appetite or weight. He denies any numbness/weakness/tingling of extremities. In the ED, vital signs are stable except for tachycardia with heart rate of 128.CBC was unremarkable. CMP showed AST 62, ALT 170. Lipid panel showed LDL of 106 and HDL 33. TSH was 0.374. UDS is positive for methadone, amphetamine, methamphetamine, marijuana and benzodiazepine. Review of Systems Pertinent positives and negatives as discussed in HPI, a complete review of systems was performed and all other systems are negative. Past Medical History Past Medical History: GERD/Reflux, Hypertension Additional Past Medical History / Comment(s): Hepatitis C, DDD, back pain, bilateral carpel tunnel syndrome. ETOH occassionally drinks 1 5th vodka more than 3 times a week. He reports that he has heart disease that was found when he had kidney problems but he denies having a stress test or cardiac catheterization. History of Any Multi-Drug Resistant Organisms: None Reported MDRO Source:: unknown Past Surgical History: No Surgical Hx Reported Past Anesthesia/Blood Transfusion Reactions: Unable to Obtain Additional Past Anesthesia/Blood Transfusion Reaction / Comment(s): Pt states he has never had surgery. Past Psychological History: Anxiety, Depression Smoking Status: Current every day smoker Past Alcohol Use History: Occasional Past Drug Use History: Heroin, IV Drug Use, Marijuana, Methamphetamine - Past Family History Father Family Medical History: Coronary Artery Disease (CAD) Additional Family Medical History / Comment(s): Father is . Mother Family Medical History: Rheumatoid Arthritis (RA) Additional Family Medical History / Comment(s): Mother is . Medications and Allergies Home Medications Medication Instructions Recorded Confirmed Type No Known Home Medications 02/10/20 02/28/20 History Allergies Allergy/AdvReac Type Severity Reaction Status Date / Time No Known Allergies Allergy Verified 02/28/20 11:18 Physical Exam Vitals: Vital Signs Temp 02/29/20 12:00 98.3 F 02/29/20 08:00 99.2 F 02/28/20 21:49 99.4 F 02/28/20 18:00 99.1 F General: [non toxic], [disheveled], [appears at stated age] Derm: [warm], [dry] Head: [atraumatic], [normocephalic], [symmetric] Eyes: [EOMI], [no lid lag], [anicteric sclera] Mouth: [no lip lesion], [mucus membranes moist] Cardiovascular: [S1S2 reg], [tachycardia], [positive DP pulse bilateral], Lungs: [CTA bilateral], [no rhonchi, no rales] , [no accessory muscle use] Abdominal: [soft], [ nontender to palpation], [no guarding], [no appreciable organomegaly] Ext: [no gross muscle atrophy], [no edema], [no contractures], [track broussard along bilateral antecubital fossa likely from IV drug use] Neuro: [ CN II-XI grossly intact], [no focal neuro deficits] Psych: [Alert], [oriented], [appropriate affect] Cranial Nerve Examination - Cranial Nerves Cranial Nerve II- Optic: Intact Cranial Nerve III- Oculomotor: Intact Cranial Nerve IV- Trochlear: Intact Cranial Nerve V- Trigeminal: Intact Cranial Nerve - Abducens: Intact Cranial Nerve VII- Facial: Intact Cranial Nerve VIII- Auditory: Intact Cranial Nerve IX- Glossopharyngeal: Intact Cranial Nerve X- Vagus: Intact Cranial Nerve XI- Accessory: Intact Cranial Nerve XII- Hypoglossal: Intact Results CBC & Chem 7: 02/29/20 10:56 02/29/20 10:56 Labs: Abnormal Lab Results - Last 24 Hours (Table) 02/29/20 Range/Units 10:56 Chloride 109 H (98-107) mmol/L AST 62 H (17-59) U/L ALT 170 H (4-49) U/L LDL Cholesterol, Calc 106 H (0-99) mg/dL HDL Cholesterol 33 L (40-60) mg/dL TSH 0.374 L (0.465-4.680) mIU/L Assessment and Plan Assessment: Elevated liver enzymes likely due to hepatitis C Tachycardia possibly related to anxiety Alcohol abuse with history of alcohol withdrawal Dyslipidemia Polysubstance abuse decreased TSH His liver enzymes are likely related to active hepatitis C. His hepatitis C was diagnosed in December 2019. Genotyping and RNA quantitative analysis was done at that time. Liver ultrasound that was done at that time showed possible hepatic steatosis and hepatocellular disease. He was advised to follow-up in the outpatient setting but has not done so. His heart rate of 128 could be related to anxiety or alcohol withdrawal. He will be placed on CIWA protocol and given Ativan as needed. EKG has been ordered. He does have elevated LDL of 106 and decrease HDL of 33. This could be related to the antipsychotic medication he is taking. I would recommend dietary modifications at this time. His UDS was positive for methadone, amphetamine, methamphetamine, benzodiazepine and marijuana. Withdrawal from these agents could be contributing to his worsening anxiety and tachycardia. He has a low TSH of 0.374. Free T4 will be ordered and followed up. Thank you for this consult. Please call with any additional questions or concerns.
[2020-02-29] MEDS: QUEtiapine 100 MG TAB PO SCH (21:40)
[2020-03-01] MEDS: VENLAFAXINE HCL ER 75 MG CAP PO SCH (08:53)
[2020-03-01] MEDS: NICOTINE 14MG/24HR PATCH TRANSDERM SCH (08:53)
[2020-03-01] MEDS: LORazepam 1 MG TAB PO PRN ×2 (08:54→20:34)
--- NOTE | 2020-03-01 10:15 | P.PN ---
Progress Note - Text Progress Note Date: 03/01/20 Interval History: Patient was seen in his room and was directable and agreeable to speak with wr iter in the office. Patient continues to appear to be irritable and anxious and states that he did not sleep well last night. He is claiming that he is continuing to feel depressed however has been taking his medications. He continues to remain focused on Ativan and Xanax. He states that he has not gone to groups as he stated he doesn't "care about that". He states that he is eating well and has better energy at this time. At this time patient denies any suicidal or homical ideations, intent or plan. Patient denies any auditory, visual hallucinations and denies any paranoia or delusions. Patient denies any side effects from the medications and has been compliant with meds. Mental Status Exam: General Appearance: Patient appears to be older than stated age is alert, appears to be anxious and is evasive and manipulative. Poor hygiene and grooming. Behavior: Patient is calmly seated without any agitated behavior. Manipulative and evasive. Speech: Patient's speech is fluent and nonpressured. Mood/Affect: Mood is improving mildly, affect is congruent and appears to be anxious. Suicidality/Homicidality: Patient denies having any suicidal or homicidal ideation intent or plan. Perceptions: Patient denies any visual hallucinations and denies any auditory hallucinations Though content/process: Logical and goal oriented. Focused on Xanax and Ativan in his anxiety. Memory and concentration: AOX3, grossly intact for the purposes of this session Judgment and insight: Poor Assessment Mood disorder unspecified, rule out substance-induced mood disorder alcohol use disorder cannabis use disorder moderate opioid use disorder moderate methamphetamine use disorder moderate Nicotine dependence Plan: -Patient continues to meet criteria for inpatient psychiatric admission for symptom stabilization and safety. Patient was petitioned and certified for court, Will await court date. -Medications: Continue with Seroquel 100 mg nightly for mood stabilization/insomnia. Continue with Effexor 75 mg daily for anxiety/mood. Patient received Invega Sustenna 156 mg injection on 02/29/2020 and will be due for his next injection on 03/06/2020. Continue Vistaril 25 mg every 6 hours when necessary for anxiety. -When necessary Geodon for agitation/aggression. -CIWA protocol with Ativan PRN for ETOH withdrawal -NRT - nicotine patch -SW on board for discharge planning. Encouraged the patient to participate in milieu. We'll continue seeking court ordered substance abuse treatment.
[2020-03-01] MEDS: QUEtiapine 100 MG TAB PO SCH (20:35)
[2020-03-02] MEDS: ACETAMINOPHEN TAB 325 MG TAB PO PRN (09:28)
[2020-03-02] MEDS: VENLAFAXINE HCL ER 75 MG CAP PO SCH (09:28)
[2020-03-02] MEDS: NICOTINE 14MG/24HR PATCH TRANSDERM SCH (09:28)
[2020-03-02] MEDS: LORazepam 1 MG TAB PO PRN ×2 (09:28→16:48)
--- NOTE | 2020-03-02 10:42 | P.PN ---
Progress Note - Text Progress Note Date: 03/02/20 Interval History: Patient was seen in his room and was directable and agreeable to speak with wr iter. Patient continues to appear to be anxious and states that he is "going through withdrawals". He states that he has been receiving Ativan which has been helping him. He appears to be less irritable today with the typewriter repairer. He spoke about being served with court papers for treatment order. He continues to have poor insight and judgment. He claims that his mood has been mildly improving. He states that he did sleep better last night on his medications. He states that he is eating well and has better energy at this time. At this time patient denies any suicidal or homical ideations, intent or plan. Patient denies any auditory, visual hallucinations and denies any paranoia or delusions. Patient denies any side effects from the medications and has been compliant with meds. Mental Status Exam: General Appearance: Patient appears to be older than stated age is alert, appears to be anxious. Poor hygiene and grooming. Behavior: Patient is calmly seated without any agitated behavior. Manipulative and evasive. Speech: Patient's speech is fluent and nonpressured. Mood/Affect: Mood is improving mildly, affect is congruent and appears to be anxious. Suicidality/Homicidality: Patient denies having any suicidal or homicidal ideation intent or plan. Perceptions: Patient denies any visual hallucinations and denies any auditory hallucinations Though content/process: Logical and goal oriented. Focused on his anxiety. Memory and concentration: AOX3, grossly intact for the purposes of this session Judgment and insight: Poor, mildly improving Assessment Mood disorder unspecified, rule out substance-induced mood disorder versus bipolar disorder. alcohol use disorder cannabis use disorder moderate opioid use disorder moderate methamphetamine use disorder moderate Nicotine dependence Plan: -Patient continues to meet criteria for inpatient psychiatric admission for symptom stabilization and safety. Patient was petitioned and certified for court, court date for 03/04/2020. -Medications: Continue with Seroquel 100 mg nightly for mood stabilization/insomnia. Continue with Effexor 75 mg daily for anxiety/mood, we'll consider increasing tomorrow if needed. Patient received Invega Sustenna 156 mg injection on 02/29/2020 and will be due for his next injection on 03/06/2020. Continue Vistaril 25 mg every 6 hours when necessary for anxiety. -When necessary Geodon for agitation/aggression. -CIWA protocol with Ativan PRN for ETOH withdrawal -NRT - nicotine patch -SW on board for discharge planning. Encouraged the patient to participate in milieu. We'll continue seeking court ordered substance abuse treatment.
[2020-03-02] MEDS: hydrOXYzine PAMOATE 25 MG CAP PO PRN ×2 (13:03→20:58)
[2020-03-02] MEDS: QUEtiapine 100 MG TAB PO SCH (20:57)
--- NOTE | 2020-03-03 10:24 | P.PN ---
Progress Note - Text Progress Note Date: 03/03/20 Interval History: Patient was seen in his room and was directable and agreeable to speak with wr iter in the office today. Patient continues to appear to be anxious and states that he is feeling "depressed". He states that he is continuing to have some suicidal thoughts however no intent or plan at this time. He states that he wants more medications for his anxiety. Patient continues to have poor hygiene and poor grooming. He appears to be less irritable today with the sba underwriter however continues to have poor insight and judgment and when sba underwriter spoke to patient about rehab after discharge patient adamantly declined and stated "they're just going to kick me out on the street after sobering me up". He states that he did not sleep well last night. At this time patient denies any homical ideations, intent or plan. Patient denies any auditory, visual hallucinations and denies any paranoia or delusions. Patient denies any side effects from the medications and has been compliant with meds. Mental Status Exam: General Appearance: Patient appears to be older than stated age is alert, appears to be anxious and withdrawn. Poor hygiene and grooming. Behavior: Patient is calmly seated without any agitated behavior. Manipulative Speech: Patient's speech is fluent and nonpressured. Mood/Affect: Mood is "depressed", affect is congruent and appears to be anxious. Suicidality/Homicidality: Patient denies having any suicidal or homicidal ideation intent or plan. Perceptions: Patient denies any visual hallucinations and denies any auditory hallucinations Though content/process: Logical and goal oriented. Focused on his anxiety and medications. Memory and concentration: AOX3, grossly intact for the purposes of this session Judgment and insight: Chronically limited Assessment Mood disorder unspecified, rule out substance-induced mood disorder versus bipolar disorder. alcohol use disorder cannabis use disorder moderate opioid use disorder moderate methamphetamine use disorder moderate Nicotine dependence Plan: -Patient continues to meet criteria for inpatient psychiatric admission for symptom stabilization and safety. Patient was petitioned and certified for court, court date for 03/04/2020. -Medications: Increased Seroquel 200 mg nightly for mood stabilization/insomnia. Continue with Effexor 75 mg daily for anxiety/mood, we'll consider increasing tomorrow if needed. Patient received Invega Sustenna 156 mg injection on 02/29/2020 and will be due for his next injection on 03/06/2020. Continue Vistaril 25 mg every 6 hours when necessary for anxiety. -When necessary Geodon for agitation/aggression. -CIWA protocol with Ativan PRN for ETOH withdrawal, we'll slowly begin to taper tomorrow. -NRT - nicotine patch -SW on board for discharge planning. Encouraged the patient to participate in milieu. We'll continue seeking court ordered substance abuse treatment.
[2020-03-03] MEDS: VENLAFAXINE HCL ER 75 MG CAP PO SCH (10:32)
[2020-03-03] MEDS: NICOTINE 14MG/24HR PATCH TRANSDERM SCH (10:32)
[2020-03-03] MEDS: ACETAMINOPHEN TAB 325 MG TAB PO PRN (15:00)
[2020-03-03] MEDS: LORazepam 1 MG TAB PO PRN (15:00)
[2020-03-03] MEDS: ZIPRASIDONE 20 MG VIAL IM PRN (15:02)
[2020-03-03] MEDS: QUEtiapine 200 MG TAB PO SCH (22:34)
[2020-03-04] MEDS ORDERED: VENLAFAXINE HCL ER 75 MG CAP PO STA ×2 (09:40→10:27)
--- NOTE | 2020-03-04 09:51 | P.PN ---
Progress Note - Text Progress Note Date: 03/04/20 Interval History: Patient was seen in his room and was directable and agreeable to speak with wr iter today however did not want to leave his bed. Patient stated that he slept better last night and claims that his mood is getting better. He claims that he has been "staying in bed all day just straight daydreaming". Patient has been mainly isolative during the mornings and has been seen visible on the unit the afternoons however has not been going to groups. Claims that his suicidal thoughts have improved and is not having any at this time. He continues to be focused on his anxiety and requested to have a Geodon IM injection last night and declined his Seroquel. Patient continues to have poor hygiene and poor grooming. He appears to be less irritable today. Continues to have poor insight and judgment. At this time patient denies any homical ideations, intent or plan. Patient denies any auditory, visual hallucinations and denies any paranoia or delusions. Patient denies any side effects from the medications and has been compliant with meds. Mental Status Exam: General Appearance: Patient appears to be older than stated age is alert, appears to be withdrawn. Poor hygiene and grooming. Behavior: Patient is calmly seated without any agitated behavior. Manipulative Speech: Patient's speech is fluent and nonpressured. Mood/Affect: Mood is "better", affect is congruent and constricted. Suicidality/Homicidality: Patient denies having any suicidal or homicidal ideation intent or plan. Perceptions: Patient denies any visual hallucinations and denies any auditory hallucinations Though content/process: Logical and goal oriented. Focused on his medications. Memory and concentration: AOX3, grossly intact for the purposes of this session Judgment and insight: Chronically limited Assessment Mood disorder unspecified, rule out substance-induced mood disorder versus b ipolar disorder. alcohol use disorder cannabis use disorder moderate opioid use disorder moderate methamphetamine use disorder moderate Nicotine dependence Plan: -Patient continues to meet criteria for inpatient psychiatric admission for symptom stabilization and safety. Patient was petitioned and certified for court, patient ended up deferring. -Medications: Continue with Seroquel 200 mg nightly for mood stabilization/insomnia. Increased Effexor 150 mg daily for anxiety/mood. Patient received Invega Sustenna 156 mg injection on 02/29/2020 and will be due for his next injection on 03/06/2020. Increased Vistaril 50 mg every 8 hours when necessary for anxiety. -When necessary Geodon for agitation/aggression. -CIWA protocol with Ativan PRN for ETOH withdrawal, decreased Ativan today with plan to taper off within the next 2 days. -NRT - nicotine patch -SW on board for discharge planning. Encouraged the patient to participate in milieu. We'll continue seeking court ordered substance abuse treatment. Patient will be discharged to rehab.
[2020-03-04] MEDS: hydrOXYzine PAMOATE 25 MG CAP PO PRN ×2 (10:01→18:26)
[2020-03-04] MEDS: NICOTINE 14MG/24HR PATCH TRANSDERM SCH (10:01)
[2020-03-04] MEDS: LORazepam 0.5 MG TAB PO PRN ×2 (10:02→18:26)
[2020-03-04] MEDS: ACETAMINOPHEN TAB 325 MG TAB PO PRN (10:02)
[2020-03-04] MEDS: VENLAFAXINE HCL ER 75 MG CAP PO SCH (10:16)
[2020-03-04] MEDS: QUEtiapine 25 MG TAB PO PRN (13:30)
[2020-03-04] MEDS: QUEtiapine 200 MG TAB PO SCH (19:19)
[2020-03-05] MEDS: NICOTINE 14MG/24HR PATCH TRANSDERM SCH (08:22)
[2020-03-05] MEDS: QUEtiapine 25 MG TAB PO PRN ×2 (08:23→17:34)
[2020-03-05] MEDS: VENLAFAXINE HCL ER 150 MG CAP PO SCH (08:23)
[2020-03-05] MEDS: LORazepam 0.5 MG TAB PO PRN ×2 (08:23→16:47)
[2020-03-05] MEDS: hydrOXYzine PAMOATE 25 MG CAP PO PRN ×2 (08:23→16:47)
[2020-03-05] MEDS ORDERED: ZIPRASIDONE 20 MG VIAL IM ONE (11:49)
[2020-03-05] MEDS ORDERED: WATER FOR INJECTION, STERILE 10 ML IV ONE (11:50)
[2020-03-05] MEDS: ZIPRASIDONE 20 MG VIAL IM PRN (11:50)
--- NOTE | 2020-03-05 13:48 | P.PN ---
Progress Note - Text Progress Note Date: 03/05/20 Interval History: Patient was seen in his room this morning and did not want to leave it that his bed once again. Patient states that he did sleep last night and didn't take the Seroquel that was prescribed to him. He continues to claim that he wants to stay in bed during the morning and has been seen walking outside of the room during the days. He is mainly isolative on the unit and not going to groups and when asked patient why he states that "I don't need that stuff". He continues to have poor insight and judgment and wants to be discharged back onto the streets. He continues to refuse rehab. Claims that his suicidal thoughts have improved and is not having any at this time. He continues to be focused on his anxiety and requested to have a Geodon IM injection and also Ativan. Patient continues to have poor hygiene and poor grooming. At this time patient denies any homical ideations, intent or plan. Patient denies any auditory, visual hallucinations and denies any paranoia or delusions. Patient denies any side effects from the medications. Mental Status Exam: General Appearance: Patient appears to be older than stated age is alert, appears to be withdrawn. Poor hygiene and grooming. Behavior: Patient is calmly seated without any agitated behavior. Manipulative, focused on anxiety. Speech: Patient's speech is fluent and nonpressured. Mood/Affect: Mood is "ok", affect is congruent and constricted. Suicidality/Homicidality: Patient denies having any suicidal or homicidal ideation intent or plan. Perceptions: Patient denies any visual hallucinations and denies any auditory hallucinations Though content/process: Logical and goal oriented. Focused on his medications and being discharged. Memory and concentration: AOX3, grossly intact for the purposes of this session Judgment and insight: Chronically limited Assessment Mood disorder unspecified, rule out substance-induced mood disorder versus bipolar disorder. alcohol use disorder cannabis use disorder moderate opioid use disorder moderate methamphetamine use disorder moderate Nicotine dependence Plan: -Patient continues to meet criteria for inpatient psychiatric admission for symptom stabilization and safety. Patient was petitioned and certified for court, patient ended up deferring. -Medications: Continue with Seroquel 200 mg nightly for mood stabilization/insomnia. Continue with Effexor 150 mg daily for anxiety/mood. Patient received Invega Sustenna 156 mg injection on 02/29/2020 and will be due for his next injection on 03/06/2020. Continue with Vistaril 50 mg every 8 hours when necessary for anxiety. -When necessary Geodon for agitation/aggression. -CIWA protocol with Ativan PRN for ETOH withdrawal, decreased Ativan today with plan to taper off within the next day. -NRT - nicotine patch -SW on board for discharge planning. Encouraged the patient to participate in milieu. We'll continue seeking court ordered substance abuse treatment. Patient to call custodial today and arrange for possible discharge in 1-2 days.
[2020-03-05] MEDS: QUEtiapine 200 MG TAB PO SCH (20:05)
[2020-03-06] MEDS: LORazepam 0.5 MG TAB PO PRN ×2 (08:19→17:43)
[2020-03-06] MEDS: hydrOXYzine PAMOATE 25 MG CAP PO PRN ×2 (08:19→17:43)
[2020-03-06] MEDS: NICOTINE 14MG/24HR PATCH TRANSDERM SCH (08:19)
[2020-03-06] MEDS: VENLAFAXINE HCL ER 150 MG CAP PO SCH (08:19)
[2020-03-06] MEDS: ACETAMINOPHEN TAB 325 MG TAB PO PRN (08:20)
[2020-03-06] MEDS: QUEtiapine 25 MG TAB PO PRN ×2 (10:32→17:43)
[2020-03-06] MEDS ORDERED: VENLAFAXINE HCL ER 75 MG CAP PO STA (10:33)
[2020-03-06] MEDS: ZIPRASIDONE 20 MG VIAL IM PRN (11:24)
[2020-03-06] MEDS ORDERED: PALIPERIDONE IM 156 MG/ML SYG IM ONE ×2 (12:00→20:00)
--- NOTE | 2020-03-06 12:07 | P.PN ---
Progress Note - Text Progress Note Date: 03/06/20 Interval History: Patient was seen in his room this morning and did not want to leave it that his bed once again however was agreeable to speak to automobile service writer at the bedside. Patient continues to state that he is "daydreaming" and claims that he had an "okay night". He continues to speak about irritability and anxiety during the day. He also continues to focus on Xanax and Ativan. He is mainly isolative on the unit and not going to groups. He continues to have poor insight and judgment and has been noted to come to the nurse's desk and asked for a Geodon IM shot. He did state that he spoke with the emergency [facility] over the phone and will be willing to go there upon discharge. Claims that his suicidal thoughts have improved and is not having any at this time. Patient continues to have poor hygiene and poor grooming. At this time patient denies any homical ideations, intent or plan. Patient denies any auditory, visual hallucinations and denies any paranoia or delusions. Patient denies any side effects from the medications. Mental Status Exam: General Appearance: Patient appears to be older than stated age is alert, appears to be withdrawn. Poor hygiene and grooming. Behavior: Patient is calmly seated without any agitated behavior. Manipulative, focused on anxiety. Speech: Patient's speech is fluent and nonpressured. Mood/Affect: Mood is "anxious", affect is congruent and constricted. Suicidality/Homicidality: Patient denies having any suicidal or homicidal ideation intent or plan. Perceptions: Patient denies any visual hallucinations and denies any auditory hallucinations Though content/process: Logical and goal oriented. Focused on his medications and being discharged. Memory and concentration: AOX3, grossly intact for the purposes of this session Judgment and insight: Chronically limited Assessment: Mood disorder unspecified, rule out substance-induced mood disorder versus bipolar disorder. alcohol use disorder cannabis use disorder moderate opioid use disorder moderate methamphetamine use disorder moderate Nicotine dependence Plan: -Patient continues to meet criteria for inpatient psychiatric admission for symptom stabilization and safety. Patient was petitioned and certified for court, patient ended up deferring. -Medications: Continue with Seroquel 200 mg nightly for mood stabilization/insomnia. Increased Effexor to 25 mg daily for anxiety/mood. Patient received Invega Sustenna 156 mg injection on 02/29/2020 and will be due for his next injection today. Continue with Vistaril 50 mg every 8 hours when necessary for anxiety. -When necessary Geodon for agitation/aggression. -CIWA protocol with Ativan PRN for ETOH withdrawal, decreased Ativan once again today to 0.5 mg twice a day when necessary. -NRT - nicotine patch -SW on board for discharge planning. Encouraged the patient to participate in milieu. We'll continue seeking court ordered substance abuse treatment. Patient to call [facility] today and arrange for possible discharge early next week.
[2020-03-06 12:55] VITALS: BMI 27.9
[2020-03-06] MEDS: QUEtiapine 200 MG TAB PO SCH (19:55)
[2020-03-07] MEDS: LORazepam 0.5 MG TAB PO PRN ×2 (08:32→18:14)
[2020-03-07] MEDS: NICOTINE 14MG/24HR PATCH TRANSDERM SCH (08:33)
[2020-03-07] MEDS: hydrOXYzine PAMOATE 25 MG CAP PO PRN ×2 (08:33→18:14)
[2020-03-07] MEDS: QUEtiapine 25 MG TAB PO PRN (08:33)
[2020-03-07] MEDS: VENLAFAXINE HCL ER 75 MG CAP PO SCH (08:33)
[2020-03-07] MEDS ORDERED: QUEtiapine 100 MG TAB PO PRN (11:34)
[2020-03-07] MEDS ORDERED: QUEtiapine 200 MG TAB PO STA (11:35)
[2020-03-07] MEDS ORDERED: BENZTROPINE 2 MG/2 ML AMP IM ONE (13:00)
--- NOTE | 2020-03-07 18:02 | PN ---
PROGRESS NOTE DATE OF SERVICE: 03/07/2020. The patient was suicidal without a plan. He identified himself as "a drug addict" and it is noted his urine drug screen on admission was positive for methadone, amphetamines, methamphetamine, benzodiazepines and marijuana. INTERVAL HISTORY: Patient has been doing fair. Last evening, patient had considerable anxiety. He has been requesting p.r.n. medications and received p.r.n. Geodon IM at 6:45 pm and then Seroquel, Ativan and Vistaril as well. In the last 2 days he has had CIWA scores up to 10, though also has had a CIWA scores of 0. He apparently slept fairly well last night. Today he has been up. He has not attended groups today. He will wander the unit and spend time in his room. When I saw him early afternoon, he had high complaints about anxiety. He was requesting some p.r.n. medication or another he believed he might need Geodon shot. When I attempted to talk to him at length about withdrawal issues, he indicated that he did not have any physical symptoms of withdrawal. Therefore, the anxiety he was experiencing was not part of withdrawal. He said several times that he is not having withdrawal issues. We talked briefly about Dr. Vale' plan to discharge the patient on Monday. He seemed to be in agreement with that in spite of his high anxiety that was his main focus. He appears to tolerate his psychotropic medications. MENTAL STATUS: Patient gave poor eye contact, mostly he looked down. He was restless. He responded to some questions appropriately. He was quite repetitive in regards to both his need for p.r.n. medications for anxiety and that he was not experiencing withdrawal issues. His affect was intense. His mood depressed. He was moderately distressed. There was no outward evidence of thought disorder. Cognition was clear. ASSESSMENT: I will continue the current diagnosis and treatment plan. I made an extensive effort at reviewing substance use issues with the patient and discussing substance withdrawal, which is the most likely issue that he is dealing with. The patient was willing to receive an additional dose of Seroquel. He was given a 1 time dose of 200 mg. He continued to have some complaints of anxiety which he received at 11:36 to that. Due to continued complaints of restlessness, he received Cogentin 2 mg IM at 1 pm. He will continue Effexor 225 mg a day. He has received his followup dose of Invega Sustenna 156 mg on the . He will continue Seroquel 200 mg at bedtime. We will continue to focus on stabilization and discharge planning. MIGUEL / KYLEN: [id number] /
[2020-03-07] MEDS: QUEtiapine 200 MG TAB PO SCH (21:55)
[2020-03-08] MEDS: VENLAFAXINE HCL ER 75 MG CAP PO SCH (08:22)
[2020-03-08] MEDS: NICOTINE 14MG/24HR PATCH TRANSDERM SCH (08:22)
[2020-03-08] MEDS: LORazepam 0.5 MG TAB PO PRN ×2 (08:23→20:34)
[2020-03-08] MEDS: hydrOXYzine PAMOATE 25 MG CAP PO PRN ×2 (08:24→16:35)
[2020-03-08] MEDS: QUEtiapine 200 MG TAB PO SCH ×3 (11:55→20:34)
[2020-03-08] MEDS: BENZTROPINE MESYLATE 1 MG TAB PO SCH ×2 (11:55→20:34)
--- NOTE | 2020-03-08 16:00 | PN ---
PROGRESS NOTE DATE OF SERVICE: 03/08/2020. CHIEF COMPLAINT: The patient was suicidal without a plan. He identified himself as a "drug addict" and it is noted his urine drug screen on admission was positive for methadone, amphetamines, methamphetamines, benzodiazepines and marijuana. INTERVAL HISTORY: Patient has been doing fair. He had a quiet evening last night. He received p.r.n. Ativan and Vistaril at 6:40 pm for anxiety complaints. Mostly he keeps to himself. He will wander the unit. It is noteworthy that not infrequently he may come to the nursing desk saying he needs some medication for some of his complaints which could include anxiety or pain issues. He slept fairly well last night. Today he has been up. He has not been attending groups. He was irritated earlier in the morning because he did not feel he was getting the increase in his Seroquel which he thought was promised to him. Yesterday when I talked to him in regard to use of Seroquel to potentially ameliorate acute withdrawal issues. The patient was quite insistent on the idea that he was not having withdrawal in spite of his significant substance use history. Also noted that he was given 2 mg of Cogentin IM, which he said helped him considerably. Today, he was hopeful to get the increased dose of Seroquel as well as Cogentin. He was intense a few different times when I saw him on the unit. When I talked to him, he had a calmer quieter manner and was a little more engaging than when I talked to him yesterday. He tolerates his psychotropic medications. MENTAL STATUS: Patient gave fair eye contact. He was somewhat restless. He answered questions with brief responses. His thoughts were clear. He had appropriate interaction. His affect was somewhat blunted. He had an anxious manner. His mood was dysphoric. He was moderately distressed. There was no indication of thought disorder. He did not voice thoughts of harm to self or others. Cognition was clear. ASSESSMENT: I will continue the current diagnosis and treatment plan. I will increase Seroquel to 200 mg 3 times a day. The aim of Seroquel is to help reduce physiologic stress response relating to acute substance withdrawal. In addition, I will start the patient on Cogentin 1 mg twice a day to reduce potential EPS symptoms, which may aggravate some of his anxiety complaints. We will focus on stabilization and discharge planning. My understanding is there is the aim to discharge the patient early in the week. MIGUEL / TEETEE: [id number] /
[2020-03-08] MEDS ORDERED: BENZTROPINE 2 MG/2 ML AMP IM ONE (18:15)
[2020-03-09] MEDS: QUEtiapine 200 MG TAB PO SCH ×3 (08:42→20:35)
[2020-03-09] MEDS: VENLAFAXINE HCL ER 75 MG CAP PO SCH (08:42)
[2020-03-09] MEDS: BENZTROPINE MESYLATE 1 MG TAB PO SCH ×2 (08:42→20:35)
[2020-03-09] MEDS: NICOTINE 14MG/24HR PATCH TRANSDERM SCH (08:42)
[2020-03-09] MEDS: LORazepam 0.5 MG TAB PO PRN ×2 (08:43→16:38)
--- NOTE | 2020-03-09 11:44 | P.DS ---
Providers Date of admission: 02/28/20 13:07 Expected date of discharge: 03/09/20 Attending physician: Gamal Ruvalcaba MD Consults: 02/28/20 13:08 Consult Physician Routine Consulting Provider: Doron James Consult Reason/Comments: H&P medical managment Do you want consulting provider notified?: Yes Primary care physician: Stated None - Discharge Diagnosis(es) (1) Bipolar disorder current episode depressed Current Visit: Yes Status: Acute Priority: High (2) Alcohol use disorder, severe, dependence Current Visit: Yes Status: Acute Priority: Medium (3) Anxiety disorder Current Visit: Yes Status: Acute Priority: Medium (4) Cannabis use disorder, mild, abuse Current Visit: Yes Status: Acute Priority: Low (5) Opiate abuse, continuous Current Visit: Yes Status: Acute Priority: Medium (6) Methamphetamine abuse Current Visit: Yes Status: Acute Priority: Medium (7) Nicotine dependence Current Visit: Yes Status: Acute Priority: Low Hospital Course: Admission HPI: This patient is a 34-year-old male, who is homeless as unmarried who was admitted to the mental health unit through the emergency room with the complaint of suicidal ideation. Patient presented to the hospital yesterday to the emergency department stating that he was suicidal depressed with no plan. Patient stated at that time that he is a "drug addict". He spoke about drinking a pint of alcohol last night. Patient was found to have bedbugs and needed to take a shower this morning. Patient was agreeable to seek to customs entry writer however. Be anxious and moving his legs constantly during the interview. Patient was very brief and appeared to be distracted. He spoke about not having anywhere to go and being homeless. He states that he's been sleeping in "random apartments on the floor". He claims that he has not been following up with his [facility] appointments and has not has his Invega Sustenna injection in several months. He states that he wants Xanax or Ativan at this time. He admits to depressed mood and suicidal thoughts however no plan. He states that he had poor sleep last night fair appetite. Patient denies any homicidal ideations intent or plan. At this time patient denies any auditory or visual hallucinations. Patient denies any flight of ideas racing thoughts and increas ed in goal directed behavior. Patient admits to using cigarettes, methadone, methamphetamine, benzodiazepines, and marijuana however does not give quantity or frequency. Hospital course: Upon admission to the unit patient was initially depressed and suicidal and withdrawing from polysubstances. Patient was initially very anxious and drug- seeking however was directable and agreeable to commence treatment. Patient went through several days of withdrawal from alcohol on CIWA protocol and also his other substances of abuse. Patient had poor judgment and insight throughout the duration of the hospitalization and chronically. Patient mainly isolated in his room however was visible on the unit more frequently towards the end of his hospitalization. Patient was encouraged to participate in the milieu and groups however patient did not. Patient was compliant with the medications and denied any side effects throughout hospital course. Patient was started on Seroquel and titrated up to a dose of 200 mg 3 times a day for mood stabilization/anxiety. Patient was also placed back on Invega Sustenna and given 156 mg injection on 02/29/2020 and his second injection on 03/06/2020 as patient had missed several months of his maintenance dose of 234 mg given to him by [facility]. Patient was also started on Vistaril 50 mg twice a day when necessary for anxiety, Effexor 225 mg daily for anxiety/depression, Cogentin 1 mg twice a day for EPS prophylaxis. Patient spoke of his stressors during individual therapy only. Patient was also seen by medical team for history and physical exam. Throughout the course of the hospitalization patient gradually improved with regards to mood, anxiety, sleep and became more future oriented however patient continues to display chronic impairment in his insight and judgment and continues to refuse any substance abuse treatment including rehab. On the day of discharge patient denied any suicidal or homicidal ideations intent or plan denied any auditory or visual hallucinations. Patient endorsed wanting to live for his future and his passions in life. The patient denied any access to guns or weapons. Patient denied any paranoia and did not endorse any delusions. Patient does have a significant history of substance abuse and was counseled on abstaining from all substances including alcohol and marijuana. Given patient's chronic history of relapses on multiple substances, [facility] petition for substance abuse court order and patient was served with the papers is set to have a court hearing in late March 2020. Patient was also counseled on the medications and need for regular compliance and was encouraged to follow-up with their outpatient appointment for mental health and also for primary care. Patient wanted to be discharged to nursing home today and guardian was informed by oncology social worker of the discharge plan. Mental status exam: General Appearance: Patient appears to be older than stated age is alert, directable. Patient is in no acute distress and has improved hygiene and grooming Behavior: Patient is calmly seated without any agitated behavior. Superficially cooperative. Speech: Patient's speech is fluent and nonpressured. Mood/Affect: Patient reports their mood is "good", affect is congruent and constricted. Suicidality/Homicidality: Patient denies having any suicidal or homicidal ideation intent or plan. Perceptions: Patient denies any auditory or visual hallucinations. Though content/process: There is no evidence of any delusional thought content and thought process is linear and goal-directed. Continues to have chronically poor insight. Memory and concentration: AOX3, grossly intact for the purposes of this session. Can spell "WORLD" backwards correctly. Judgment and insight: improved with guarded prognosis Impression: Bipolar disorder, currently depressed Anxiety disorder unspecified Alcohol dependence Cannabis use disorder Opioid use disorder Methamphetamine abuse Nicotine dependence Plan: -Continue with discharge today as patient has improved and stabilized psychiatrically and is not currently an imminent threat to himself and/or others. Patient is chronically at elevated risk for potential self-harm as he has poor coping skills poor insight and judgment and also all the substance abuse. -Continue medications: Seroquel 200 mg 3 times a day for mood stabilization/anxiety, Cogentin 1 mg twice a day for EPS prophylaxis, Effexor 225 mg daily for anxiety, Vistaril 50 mg twice a day when necessary for anxiety. Patient was given Invega Sustenna 156 mg injection on 02/29/2020 and his second injection on 03/06/2020 as patient had missed several months of his maintenance dose of 234 mg given to him by [facility]. -Patient was counseled on the need for medication compliance and appropriate follow-up at mental health and also primary care for medical issues. Patient verbalized understanding and agreed. -Social work to contact patient's guardian and confirm with nursing home for patient's discharge today. Social work also to arrange for patients follow up appointments with [facility] for psychiatric care along with follow up with primary care provider. -Patient was served with court papers for substance use treatment order which hearing will be scheduled for late March 2020. -Patient counseled on abstaining from recreational drugs and marijuana and alcohol. Was informed/educated on the adverse effects on their physical and mental health. [Patient verbally agreed and understood however was superficial and declined rehab several times throughout the hospitalization and continues poor insight and judgment -Patient was instructed to return to the hospital or seek immediate medical care if their psychiatric or medical symptoms do worsen or reoccur. Allergies Allergy/AdvReac Type Severity Reaction Status Date / Time No Known Allergies Allergy Verified 03/08/20 20:28 Laboratory Results WBC 5.5 k/uL (3.8-10.6) 02/29/20 10:56 RBC 5.33 m/uL (4.30-5.90) 02/29/20 10:56 Hgb 15.2 gm/dL (13.0-17.5) 02/29/20 10:56 Hct 44.3 % (39.0-53.0) 02/29/20 10:56 MCV 83.2 fL (80.0-100.0) 02/29/20 10:56 MCH 28.5 pg (25.0-35.0) 02/29/20 10:56 MCHC 34.2 g/dL (31.0-37.0) 02/29/20 10:56 RDW 13.1 % (11.5-15.5) 02/29/20 10:56 Plt Count 158 k/uL (150-450) 02/29/20 10:56 Neutrophils % 51 % 02/29/20 10:56 Lymphocytes % 39 % 02/29/20 10:56 Monocytes % 4 % 02/29/20 10:56 Eosinophils % 2 % 02/29/20 10:56 Basophils % 1 % 02/29/20 10:56 Neutrophils # 2.8 k/uL (1.3-7.7) 02/29/20 10:56 Lymphocytes # 2.1 k/uL (1.0-4.8) 02/29/20 10:56 Monocytes # 0.2 k/uL (0-1.0) 02/29/20 10:56 Eosinophils # 0.1 k/uL (0-0.7) 02/29/20 10:56 Basophils # 0.0 k/uL (0-0.2) 02/29/20 10:56 Sodium 142 mmol/L (137-145) 02/29/20 10:56 Potassium 4.2 mmol/L (3.5-5.1) 02/29/20 10:56 Chloride 109 mmol/L (98-107) H 02/29/20 10:56 Carbon Dioxide 25 mmol/L (22-30) 02/29/20 10:56 Anion Gap 8 mmol/L 02/29/20 10:56 BUN 12 mg/dL (9-20) 02/29/20 10:56 Creatinine 0.71 mg/dL (0.66-1.25) 02/29/20 10:56 Est GFR (CKD-EPI)AfAm >90 (>60 ml/min/1.73 sqM) 02/29/20 10:56 Est GFR (CKD-EPI)NonAf >90 (>60 ml/min/1.73 sqM) 02/29/20 10:56 Glucose 93 mg/dL (74-99) 02/29/20 10:[address] Glu mg/dL 97 02/29/20 10:56 Hemoglobin A1c 5.0 % (4.0-6.0) 02/29/20 10:56 Calcium 9.6 mg/dL (8.4-10.2) 02/29/20 10:56 Total Bilirubin 0.4 mg/dL (0.2-1.3) 02/29/20 10:56 AST 62 U/L (17-59) H 02/29/20 10:56 ALT 170 U/L (4-49) H 02/29/20 10:56 Alkaline Phosphatase 57 U/L (38-126) 02/29/20 10:56 Total Protein 8.1 g/dL (6.3-8.2) 02/29/20 10:56 Albumin 4.2 g/dL (3.5-5.0) 02/29/20 10:56 Triglycerides 118 mg/dL (<150) 02/29/20 10:56 Cholesterol 163 mg/dL (<200) 02/29/20 10:56 LDL Cholesterol, Calc 106 mg/dL (0-99) H 02/29/20 10:56 HDL Cholesterol 33 mg/dL (40-60) L 02/29/20 10:56 TSH 0.374 mIU/L (0.465-4.680) L 02/29/20 10:56 Free T4 1.21 ng/dL (0.78-2.19) 02/29/20 10:56 Urine Opiates Screen Not Detected (NotDetected) 02/28/20 08:20 Ur Oxycodone Screen Not Detected (NotDetected) 02/28/20 08:20 Urine Methadone Screen Detected (NotDetected) H 02/28/20 08:20 Ur Propoxyphene Screen Not Detected (NotDetected) 02/28/20 08:20 Ur Barbiturates Screen Not Detected (NotDetected) 02/28/20 08:20 U Tricyclic Antidepress Not Detected (NotDetected) 02/28/20 08:20 Ur Phencyclidine Scrn Not Detected (NotDetected) 02/28/20 08:20 Ur Amphetamines Screen Detected (NotDetected) H 02/28/20 08:20 U Methamphetamines Scrn Detected (NotDetected) H 02/28/20 08:20 U Benzodiazepines Scrn Detected (NotDetected) H 02/28/20 08:20 Urine Cocaine Screen Not Detected (NotDetected) 02/28/20 08:20 U Marijuana (THC) Screen Detected (NotDetected) H 02/28/20 08:20 Vital Signs Temp 0 F L 03/09/20 05:59 Pulse 110 H 03/09/20 08:49 Resp 20 03/09/20 08:49 BP 115/71 03/09/20 08:49 Pulse Ox 98 03/08/20 06:33 Intake & Output 03/08/20 03/09/20 03/09/20 18:59 06:59 18:59 Weight 84 kg 84 kg Patient Condition at Discharge: Stable Plan - Discharge Summary Discharge Rx Participant: No New Discharge Prescriptions: New Benztropine Mesylate [Cogentin] 1 mg PO BID 30 Days tab Venlafaxine HCl [Effexor XR] 225 mg PO DAILY 30 Days tab Nicotine 14Mg/24Hr Patch [Habitrol] 1 patch TRANSDERM DAILY 14 Days patch QUEtiapine [SEROquel] 200 mg PO TID 30 Days tab hydrOXYzine PAMOATE [Vistaril] 50 mg PO BID PRN 30 Days cap PRN Reason: Anxiety Discharge Medication List Benztropine Mesylate [Cogentin] 1 mg PO BID 30 Days tab 03/09/20 [Rx] Nicotine 14Mg/24Hr Patch [Habitrol] 1 patch TRANSDERM DAILY 14 Days patch 03/09/20 [Rx] QUEtiapine [SEROquel] 200 mg PO TID 30 Days tab 03/09/20 [Rx] Venlafaxine HCl [Effexor XR] 225 mg PO DAILY 30 Days tab 03/09/20 [Rx] hydrOXYzine PAMOATE [Vistaril] 50 mg PO BID PRN 30 Days cap 03/09/20 [Rx] Follow up Appointment(s)/Referral(s): [facility] [Outside] - 03/11/20 3:00 pm (Samantha Nj 03/11 @ 15:[address] Tovar 03/16 @ 08:00 @ [facility]) [facility] [NON-STAFF] - 1 Week Patient Instructions/Handouts: Depression (DC), Methamphetamine Abuse (DC), Suicide Prevention (DC) Activity/Diet/Wound Care/Special Instructions: Activity and diet as tolerated. Avoid the use of street drugs and alcohol. Take all medications as prescribed. When you are in need of refills on your medicat ions please contact your medical provider and/or outpatient psychiatrist to have this done. Please go to scheduled outpatient appointment for aftercare treatment. If symptoms return or become worse, call the crisis line at and/or go to the nearest emergency room for evaluation. Discharge Disposition: HOME SELF-CARE
[2020-03-09 16:24] VITALS: RESP 18
[2020-03-09] MEDS: hydrOXYzine PAMOATE 25 MG CAP PO PRN (16:38)
[2020-03-10 07:14] VITALS: BP 109/61; PULSE 81
[2020-03-10] MEDS: NICOTINE 14MG/24HR PATCH TRANSDERM SCH (08:19)
[2020-03-10] MEDS: VENLAFAXINE HCL ER 75 MG CAP PO SCH (08:20)
[2020-03-10] MEDS: BENZTROPINE MESYLATE 1 MG TAB PO SCH (08:20)
[2020-03-10] MEDS: QUEtiapine 200 MG TAB PO SCH (08:20)
[2020-03-10] MEDS: LORazepam 0.5 MG TAB PO PRN (08:23)
[2020-03-10] MEDS: hydrOXYzine PAMOATE 25 MG CAP PO PRN (08:23)
--- NOTE | 2020-03-10 11:35 | P.DS ---
Providers Date of admission: 02/28/20 13:07 Expected date of discharge: 03/10/20 Attending physician: Gamal Ruvalcaba MD Consults: 02/28/20 13:08 Consult Physician Routine Consulting Provider: Doron James Consult Reason/Comments: H&P medical managment Do you want consulting provider notified?: Yes Primary care physician: Stated None - Discharge Diagnosis(es) (1) Bipolar disorder current episode depressed Current Visit: Yes Status: Acute Priority: High (2) Alcohol use disorder, severe, dependence Current Visit: Yes Status: Acute Priority: Medium (3) Anxiety disorder Current Visit: Yes Status: Acute Priority: Medium (4) Cannabis use disorder, mild, abuse Current Visit: Yes Status: Acute Priority: Low (5) Opiate abuse, continuous Current Visit: Yes Status: Acute Priority: Medium (6) Methamphetamine abuse Current Visit: Yes Status: Acute Priority: Medium (7) Nicotine dependence Current Visit: Yes Status: Acute Priority: Low Hospital Course: Admission HPI: This patient is a 34-year-old male, who is homeless as unmarried who was admitted to the mental health unit through the emergency room with the complaint of suicidal ideation. Patient presented to the hospital yesterday to the emergency department stating that he was suicidal depressed with no plan. Patient stated at that time that he is a "drug addict". He spoke about drinking a pint of alcohol last night. Patient was found to have bedbugs and needed to take a shower this morning. Patient was agreeable to seek to advertising writer however. Be anxious and moving his legs constantly during the interview. Patient was very brief and appeared to be distracted. He spoke about not having anywhere to go and being homeless. He states that he's been sleeping in "random apartments on the floor". He claims that he has not been following up with his [facility] appointments and has not has his Invega Sustenna injection in several months. He states that he wants Xanax or Ativan at this time. He admits to depressed mood and suicidal thoughts however no plan. He states that he had poor sleep last night fair appetite. Patient denies any homicidal ideations intent or plan. At this time patient denies any auditory or visual hallucinations. Patient denies any flight of ideas racing thoughts and increas ed in goal directed behavior. Patient admits to using cigarettes, methadone, methamphetamine, benzodiazepines, and marijuana however does not give quantity or frequency. Hospital course: Upon admission to the unit patient was initially depressed and suicidal and withdrawing from polysubstances. Patient was initially very anxious and drug- seeking however was directable and agreeable to commence treatment. Patient went through several days of withdrawal from alcohol on CIWA protocol and also his other substances of abuse. Patient had poor judgment and insight throughout the duration of the hospitalization and chronically. Patient mainly isolated in his room however was visible on the unit more frequently towards the end of his hospitalization. Patient was encouraged to participate in the milieu and groups however patient did not. Patient was compliant with the medications and denied any side effects throughout hospital course. Patient was started on Seroquel and titrated up to a dose of 200 mg 3 times a day for mood stabilization/anxiety. Patient was also placed back on Invega Sustenna and given 156 mg injection on 02/29/2020 and his second injection on 03/06/2020 as patient had missed several months of his maintenance dose of 234 mg given to him by [facility]. Patient was also started on Vistaril 50 mg twice a day when necessary for anxiety, Effexor 225 mg daily for anxiety/depression, Cogentin 1 mg twice a day for EPS prophylaxis. Patient spoke of his stressors during individual therapy only. Patient was also seen by medical team for history and physical exam. Throughout the course of the hospitalization patient gradually improved with regards to mood, anxiety, sleep and became more future oriented however patient continues to display chronic impairment in his insight and judgment and continues to refuse any substance abuse treatment including rehab. On the day of discharge patient denied any suicidal or homicidal ideations intent or plan denied any auditory or visual hallucinations. Patient endorsed wanting to live for his future and his passions in life. The patient denied any access to guns or weapons. Patient denied any paranoia and did not endorse any delusions. Patient does have a significant history of substance abuse and was counseled on abstaining from all substances including alcohol and marijuana. Given patient's chronic history of relapses on multiple substances, [facility] petition for substance abuse court order and patient was served with the papers is set to have a court hearing in late March 2020. Patient was also counseled on the medications and need for regular compliance and was encouraged to follow-up with their outpatient appointment for mental health and also for primary care. Patient wanted to be discharged to [facility] today versus going to his friend's house and currently awaiting for guardian's approval by the protective services social worker before proceeding with discharge. Mental status exam: General Appearance: Patient appears to be older than stated age is alert, directable. Patient is in no acute distress and has improved hygiene and grooming Behavior: Patient is calmly seated without any agitated behavior. Superficially cooperative. Speech: Patient's speech is fluent and nonpressured. Mood/Affect: Patient reports their mood is "ok", affect is congruent and constricted. Suicidality/Homicidality: Patient denies having any suicidal or homicidal ideation intent or plan. Perceptions: Patient denies any auditory or visual hallucinations. Though content/process: There is no evidence of any delusional thought content and thought process is linear and goal-directed. Continues to have chronically poor insight. Memory and concentration: AOX3, grossly intact for the purposes of this session. Can spell "WORLD" backwards correctly. Judgment and insight: improved with guarded prognosis Impression: Bipolar disorder, currently depressed Anxiety disorder unspecified Alcohol dependence Cannabis use disorder Opioid use disorder Methamphetamine abuse Nicotine dependence Plan: -Continue with discharge today as patient has improved and stabilized psychiatrically and is not currently an imminent threat to himself and/or others. Patient is chronically at elevated risk for potential self-harm as he has poor coping skills poor insight and judgment and also all the substance abuse. -Continue medications: Seroquel 200 mg 3 times a day for mood stabilization/anxiety, Cogentin 1 mg twice a day for EPS prophylaxis, Effexor 225 mg daily for anxiety, Vistaril 50 mg twice a day when necessary for anxiety. Patient was given Invega Sustenna 156 mg injection on 02/29/2020 and his second injection on 03/06/2020 as patient had missed several months of his maintenance dose of 234 mg given to him by [facility]. Patient will be due for his next Invega Sustenna 234 mg IM monthly injection on 04/03/2020 and monthly thereafter. -Patient was counseled on the need for medication compliance and appropriate follow-up at mental health and also primary care for medical issues. Patient verbalized understanding and agreed. -Social work to contact patient's guardian and confirm with [facility] for patient's discharge today or patient will be discharged to his friend's house, pending approval from guardian. Social work also to arrange for patients follow up appointments with [facility] for psychiatric care along with follow up with primary care provider. -Patient was served with court papers for substance use treatment order which hearing will be scheduled for late March 2020. -Patient counseled on abstaining from recreational drugs and marijuana and alcohol. Was informed/educated on the adverse effects on their physical and mental health. Patient verbally agreed and understood however was superficial and declined rehab several times throughout the hospitalization and continues to have poor insight and judgment -Patient was instructed to return to the hospital or seek immediate medical care if their psychiatric or medical symptoms do worsen or reoccur. Allergies Allergy/AdvReac Type Severity Reaction Status Date / Time No Known Allergies Allergy Verified 03/08/20 20:28 Laboratory Results WBC 5.5 k/uL (3.8-10.6) 02/29/20 10:56 RBC 5.33 m/uL (4.30-5.90) 02/29/20 10:56 Hgb 15.2 gm/dL (13.0-17.5) 02/29/20 10:56 Hct 44.3 % (39.0-53.0) 02/29/20 10:56 MCV 83.2 fL (80.0-100.0) 02/29/20 10:56 MCH 28.5 pg (25.0-35.0) 02/29/20 10:56 MCHC 34.2 g/dL (31.0-37.0) 02/29/20 10:56 RDW 13.1 % (11.5-15.5) 02/29/20 10:56 Plt Count 158 k/uL (150-450) 02/29/20 10:56 Neutrophils % 51 % 02/29/20 10:56 Lymphocytes % 39 % 02/29/20 10:56 Monocytes % 4 % 02/29/20 10:56 Eosinophils % 2 % 02/29/20 10:56 Basophils % 1 % 02/29/20 10:56 Neutrophils # 2.8 k/uL (1.3-7.7) 02/29/20 10:56 Lymphocytes # 2.1 k/uL (1.0-4.8) 02/29/20 10:56 Monocytes # 0.2 k/uL (0-1.0) 02/29/20 10:56 Eosinophils # 0.1 k/uL (0-0.7) 02/29/20 10:56 Basophils # 0.0 k/uL (0-0.2) 02/29/20 10:56 Sodium 142 mmol/L (137-145) 02/29/20 10:56 Potassium 4.2 mmol/L (3.5-5.1) 02/29/20 10:56 Chloride 109 mmol/L (98-107) H 02/29/20 10:56 Carbon Dioxide 25 mmol/L (22-30) 02/29/20 10:56 Anion Gap 8 mmol/L 02/29/20 10:56 BUN 12 mg/dL (9-20) 02/29/20 10:56 Creatinine 0.71 mg/dL (0.66-1.25) 02/29/20 10:56 Est GFR (CKD-EPI)AfAm >90 (>60 ml/min/1.73 sqM) 02/29/20 10:56 Est GFR (CKD-EPI)NonAf >90 (>60 ml/min/1.73 sqM) 02/29/20 10:56 Glucose 93 mg/dL (74-99) 02/29/20 10:[address] Glu mg/dL 97 02/29/20 10:56 Hemoglobin A1c 5.0 % (4.0-6.0) 02/29/20 10:56 Calcium 9.6 mg/dL (8.4-10.2) 02/29/20 10:56 Total Bilirubin 0.4 mg/dL (0.2-1.3) 02/29/20 10:56 AST 62 U/L (17-59) H 02/29/20 10:56 ALT 170 U/L (4-49) H 02/29/20 10:56 Alkaline Phosphatase 57 U/L (38-126) 02/29/20 10:56 Total Protein 8.1 g/dL (6.3-8.2) 02/29/20 10:56 Albumin 4.2 g/dL (3.5-5.0) 02/29/20 10:56 Triglycerides 118 mg/dL (<150) 02/29/20 10:56 Cholesterol 163 mg/dL (<200) 02/29/20 10:56 LDL Cholesterol, Calc 106 mg/dL (0-99) H 02/29/20 10:56 HDL Cholesterol 33 mg/dL (40-60) L 02/29/20 10:56 TSH 0.374 mIU/L (0.465-4.680) L 02/29/20 10:56 Free T4 1.21 ng/dL (0.78-2.19) 02/29/20 10:56 Urine Opiates Screen Not Detected (NotDetected) 02/28/20 08:20 Ur Oxycodone Screen Not Detected (NotDetected) 02/28/20 08:20 Urine Methadone Screen Detected (NotDetected) H 02/28/20 08:20 Ur Propoxyphene Screen Not Detected (NotDetected) 02/28/20 08:20 Ur Barbiturates Screen Not Detected (NotDetected) 02/28/20 08:20 U Tricyclic Antidepress Not Detected (NotDetected) 02/28/20 08:20 Ur Phencyclidine Scrn Not Detected (NotDetected) 02/28/20 08:20 Ur Amphetamines Screen Detected (NotDetected) H 02/28/20 08:20 U Methamphetamines Scrn Detected (NotDetected) H 02/28/20 08:20 U Benzodiazepines Scrn Detected (NotDetected) H 02/28/20 08:20 Urine Cocaine Screen Not Detected (NotDetected) 02/28/20 08:20 U Marijuana (THC) Screen Detected (NotDetected) H 02/28/20 08:20 Vital Signs Temp 98.4 F 03/10/20 07:13 Pulse 81 03/10/20 07:13 Resp 18 03/09/20 18:09 BP 109/61 03/10/20 07:13 Pulse Ox 98 03/10/20 07:13 Patient Condition at Discharge: Stable Plan - Discharge Summary Discharge Rx Participant: No New Discharge Prescriptions: New Benztropine Mesylate [Cogentin] 1 mg PO BID 30 Days tab Venlafaxine HCl [Effexor XR] 225 mg PO DAILY 30 Days tab Nicotine 14Mg/24Hr Patch [Habitrol] 1 patch TRANSDERM DAILY 14 Days patch QUEtiapine [SEROquel] 200 mg PO TID 30 Days tab hydrOXYzine PAMOATE [Vistaril] 50 mg PO BID PRN 30 Days cap PRN Reason: Anxiety Paliperidone IM [Invega Sustenna] 234 mg IM DIRECTED #1 syr Discharge Medication List Benztropine Mesylate [Cogentin] 1 mg PO BID 30 Days tab 03/09/20 [Rx] Nicotine 14Mg/24Hr Patch [Habitrol] 1 patch TRANSDERM DAILY 14 Days patch 03/09/20 [Rx] QUEtiapine [SEROquel] 200 mg PO TID 30 Days tab 03/09/20 [Rx] Venlafaxine HCl [Effexor XR] 225 mg PO DAILY 30 Days tab 03/09/20 [Rx] hydrOXYzine PAMOATE [Vistaril] 50 mg PO BID PRN 30 Days cap 03/09/20 [Rx] Paliperidone IM [Invega Sustenna] 234 mg IM DIRECTED #1 syr 03/10/20 [Rx] Follow up Appointment(s)/Referral(s): [facility] [Outside] - 03/11/20 3:00 pm (Samantha Nj 03/11 @ 15:[address] Tovar 03/16 @ 08:00 @ [facility]) [facility]] - 1 Week Patient Instructions/Handouts: Depression (DC), Methamphetamine Abuse (DC), Suicide Prevention (DC) Activity/Diet/Wound Care/Special Instructions: Activity and diet as tolerated. Avoid the use of street drugs and alcohol. Take all medications as prescribed. When you are in need of refills on your medications please contact your medical provider and/or outpatient psychiatrist to have this done. Please go to scheduled outpatient appointment for aftercare treatment. If symptoms return or become worse, call the crisis line at and/or go to the nearest emergency room for evaluation. Discharge Disposition: HOME SELF-CARE
[2020-03-10 14:45] VITALS: TEMP 98.5
== END 2020-03-10 14:00 | disposition home or self-care (01) | DRG 885 ==
LOC: EC 07:42 → 3MHU 13:07
PROVIDERS: ADMIT Psychiatry & Neurology Psychiatry; ATTEND Psychiatry & Neurology Psychiatry
DX: F31.30 Bipolar disorder, current episode depressed, mild or moderate severity, unspecified (principal); F10.239 Alcohol dependence with withdrawal, unspecified; F11.20 Opioid dependence, uncomplicated; F15.20 Other stimulant dependence, uncomplicated; R45.851 Suicidal ideations; F12.20 Cannabis dependence, uncomplicated; F17.200 Nicotine dependence, unspecified, uncomplicated; F41.9 Anxiety disorder, unspecified; I10 Essential (primary) hypertension; B19.20 Unspecified viral hepatitis C without hepatic coma; K21.9 Gastro-esophageal reflux disease without esophagitis; G56.03 Carpal tunnel syndrome, bilateral upper limbs; Z59.0 Homelessness; Z79.899 Other long term (current) drug therapy; Z91.5 Personal history of self-harm; Z91.19 Patient's noncompliance with other medical treatment and regimen; Z82.49 Family history of ischemic heart disease and other diseases of the circulatory system; Z82.61 Family history of arthritis
CPT/HCPCS: 80053; 80061; 80306; 82075; 83036; 84439; 84443; 85025; 99285

== ENCOUNTER 2020-05-11 17:23 | Inpatient (IN) | payer MEDICAID, OTHER ==
--- NOTE | 2020-05-11 19:37 | ED ---
Psych HPI - General Chief Complaint: Psychiatric Symptoms Stated Complaint: mental health Time Seen by Provider: 05/11/20 17:47 Source: patient, police Mode of arrival: ambulatory - History of Present Illness Initial Comments: 34-year-old male presenting today for chief complaint of brought in by court order. Patient states that he does not want to go to [facility] or take the medicat ions. He states he is happy being homeless. Patient states that he will just move out of state she does not care he denies any suicidal or homicidal ideation he states he is happy denies any current complaints and states he was forced here for evaluation. Remaining ROS (-), patient denies any recent fever, chills, shortness of breath, chest pain, back pain, abdominal pain, nausea or vomiting, numbness or tingling, dysuria or hematuria, constipation or diarrhea, headaches or visual changes, or any other complaints. - Related Data Home Medications Medication Instructions Recorded Confirmed Paliperidone IM [Invega Sustenna] 234 mg IM QMONTH 03/10/20 03/10/20 Previous Rx's Medication Instructions Recorded Benztropine Mesylate [Cogentin] 1 mg PO BID 30 Days tab 03/09/20 Nicotine 14Mg/24Hr Patch [Habitrol] 1 patch TRANSDERM DAILY 14 Days 03/09/20 patch QUEtiapine [SEROquel] 200 mg PO TID 30 Days tab 03/09/20 Venlafaxine HCl [Effexor XR] 225 mg PO DAILY 30 Days tab 03/09/20 hydrOXYzine PAMOATE [Vistaril] 50 mg PO BID PRN 30 Days cap 03/09/20 Paliperidone IM [Invega Sustenna] 234 mg IM DIRECTED #1 syr 03/10/20 Allergies Allergy/AdvReac Type Severity Reaction Status Date / Time No Known Allergies Allergy Verified 05/11/20 17:29 Review of Systems ROS Statement: Those systems with pertinent positive or pertinent negative responses have been documented in the HPI. ROS Other: All systems not noted in ROS Statement are negative. Past Medical History Past Medical History: GERD/Reflux, Hypertension Additional Past Medical History / Comment(s): Hepatitis C, DDD, back pain, bilateral carpel tunnel syndrome. ETOH occassionally drinks 1 5th vodka more than 3 times a week. He reports that he has heart disease that was found when he had kidney problems but he denies having a stress test or cardiac catheterization. History of Any Multi-Drug Resistant Organisms: None Reported MDRO Source:: unknown Past Surgical History: No Surgical Hx Reported Past Anesthesia/Blood Transfusion Reactions: Unable to Obtain Additional Past Anesthesia/Blood Transfusion Reaction / Comment(s): Pt states he has never had surgery. Past Psychological History: Anxiety, Depression Smoking Status: Current every day smoker Past Alcohol Use History: None Reported, Occasional Past Drug Use History: Heroin, IV Drug Use, Marijuana, Methamphetamine - Past Family History Father Family Medical History: Coronary Artery Disease (CAD) Additional Family Medical History / Comment(s): Father is . Mother Family Medical History: Rheumatoid Arthritis (RA) Additional Family Medical History / Comment(s): Mother is . General Exam - General Exam Comments Initial Comments: General: The patient is awake and alert, in no distress Eye: Pupils are equal, round and reactive to light, extra-ocular movements are intact. No nystagmus. There is normal conjunctiva bilaterally. No signs of icterus. Cardiovascular: There is a regular rate and rhythm. No murmur, rub or gallop is appreciated. Respiratory: Lungs are clear to auscultation, respirations are non-labored, breath sounds are equal. No wheezes, stridor, rales, or rhonchi. Gastrointestinal: Soft, non-distended, non-tender abdomen without masses or organomegaly noted. There is no rebound or guarding present. Musculoskeletal: Normal ROM, no tenderness. Strength 5/5. Sensation intact. Radial pulses equal bilaterally 2+. Neurological: A&O x 3. CN II-XII intact grossly, There are no obvious motor or sensory deficits. Coordination appears grossly intact. Speech is normal. Skin: Skin is warm and dry and no rashes or lesions are noted. Psychiatric: Cooperative, appropriate mood & affect, normal judgment. Limitations: no limitations Course Vital Signs 05/11/20 17:30 Temperature 98.3 F Pulse Rate 88 Respiratory 18 Rate Blood Pressure 121/62 O2 Sat by Pulse 97 Oximetry Medical Decision Making - Medical Decision Making 34yo male presenting today for cc of brought in by court order. Patient being noncompliant with court ordered medications. Patient not suicidal nor homicidal. Patient mandated evaluation/stay per EPS nurse after she reviewed the order. Patient will be admitted psych. Disposition Clinical Impression: Noncompliance with medications Disposition: TRANSFER TO PSYCH HOSP/UNIT Condition: Stable Is patient prescribed a controlled substance at d/c from ED?: No Referrals: None,Stated [Primary Care Provider] - 1-2 days Time of Disposition: 20:24
[2020-05-11] MEDS ORDERED: MAGNESIUM HYDROXIDE 2,400 MG/10 ML CUP PO PRN (21:44)
[2020-05-11] MEDS: QUEtiapine 200 MG TAB PO SCH (22:10)
--- NOTE | 2020-05-12 00:07 | P.PN ---
Progress Note - Text Progress Note Date: 05/12/20 Attempted to see the patient in the mental health unit at 11 PM on 05/11. The patient was lethargic after having received Geodon and Seroquel. Will attempt to see the patient tomorrow.
[2020-05-12] MEDS: QUEtiapine 200 MG TAB PO SCH ×3 (11:19→21:01)
[2020-05-12] MEDS: BENZTROPINE MESYLATE 1 MG TAB PO SCH ×2 (11:21→20:29)
[2020-05-12] MEDS: VENLAFAXINE HCL ER 75 MG CAP PO SCH (11:21)
[2020-05-12] MEDS: NICOTINE 14MG/24HR PATCH TRANSDERM SCH (11:21)
--- NOTE | 2020-05-12 12:15 | P.HP ---
Psychiatric H&P - . H&P Date: 05/12/20 History & Physical: Allergies Allergy/AdvReac Type Severity Reaction Status Date / Time No Known Allergies Allergy Verified 05/11/20 21:21 Vital Signs Temp 98.7 F 05/11/20 21:54 Pulse 88 05/11/20 17:30 Resp 18 05/11/20 21:54 BP 121/62 05/11/20 17:30 Pulse Ox 96 05/11/20 21:54 Intake & Output 05/11/20 05/12/20 05/12/20 18:59 06:59 18:59 Weight 83.915 kg 86.863 kg 05/12/20 10:41 IDENTIFYING DATA: This patient is a 34-year-old male, who is homeless, unmarried who was admitted to the mental health unit after being picked up for refusing medications and follow-up as per court order. HPI: Patient presented to the hospital yesterday to the emergency department and was brought in by pickup for court order as she was apparently refusing medications at [facility]. Patient did not offer any acute complaints in the ER and states that he was "happy being homeless" and denied any suicidal or homicidal thoughts in the ER. Patient has had several inpatient psychiatric admissions in the past for depressive symptoms and polysubstance abuse. Patient was previously on a deferral and a demand for hearing will be filed. He had also had a substance abuse court order filed against him by [facility] in March. Patient was seen at the bedside today and was covered with blankets and appeared to have poor hygiene and grooming. Patient appeared to be irritable and uncooperative with copywriter and was fairly vague and guarded. Patient has very poor insight and judgment and was intrusive at times. He continues to state that he does not need medications and states that he does not need to be in the hospital. Patient claims that "it's my own body and I can refuse to get the shot if I want to". Patient was due for his Invega Sustenna 234 mg injection on 04/03 however did not show up for the appointment. He claims that his mood is "okay" and admits to anxiety. when asked about drug use he states that "I'm doing a little bit but not very much". He claims of poor sleep. He states that he is cu rrently homeless and likes being homeless. He also mentioned that he left the rehab last time early and "got in trouble for it". He claims that he does not know why he is in the hospital and why the police picked him up. Patient denies any suicidal or homicidal ideations intent or plan. At this time patient denies any auditory or visual hallucinations. Patient admits to using cigarettes and heroin, and other recreational drugs however does not say which ones he is using in particular and refuses to give any blood work or urine to check UDS. Patient does have a history of alcohol abuse in the past. PAST PSYCHIATRIC HISTORY: The patient has had numerous inpatient psychiatric admissions. His last admission was in February 2020. He has been on other mental health unit as well. He has a history of 3 suicide attempts via overdoses and cutting his wrist. He is open with [facility] mental health but noncompliant with treatment. Patient has an active substance use court order for treatment. Patient is currently on Seroquel, Effexor, Cogentin and Vistaril. Patient was on Invega Sustenna 234 mg monthly injections however did not show up for his last appointment on 04/03 and was last given the injection on 03/06/2020. PMH: Hepatitis C, GERD ALLERGIES: as per EMR CHEMICAL DEPENDENCY HISTORY: as per HPI FAMILY PSYCHIATRIC/SUBSTANCE USE HISTORY: States that "everybody on my mother's side" had mental illness. SOCIAL HISTORY: Patient was born and raised in [place] and is currently homeless and has no kids is unmarried and completed up to 12th grade. Patient claims that he is unemployed and does not collect any benefits. MENTAL STATUS EXAM: General Appearance: Patient appears to be older than stated age is alert, difficult to redirect and appears to be anxious and evasive. Patient appears to have poor hygiene and grooming. Wearing hospital gown. Behavior: Patient is seated without any agitated behavior. Appears to be anxious and irritable. Speech: Patient's speech is fluent and nonpressured. Demanding and irritable tone. Mood/Affect: Patient reports their mood is "fine", affect is congruent yet irritable. Suicidality/Homicidality: Patient denies having any homicidal ideation intent or plan. Denies any suicidal thoughts no intent or plan Perceptions: Patient denies any visual hallucinations and denies any auditory hallucinations Though content/process: There is no evidence of any delusional thought content and thought process is linear and goal-directed. Poor insight and minimizing his symptoms and drug use. Memory and concentration: AOX3, grossly intact for the purposes of this session. Can spell "WORLD" backwards Judgment and insight: poor/impulsive. STRENGTHS/WEAKNESSES: strength is that patient is resilient. Weakness is that patient has poor judgment and is impulsive INTELLECT: Below average IMPRESSIONS: Depressive disorder unspecified, rule out substance-induced mood disorder History of alcohol use disorder cannabis use disorder opioid use disorder, currently in withdrawal History of methamphetamine use disorder Nicotine dependence PLAN: -Patient is admitted under involuntary status to MHU for stabilization of psychiatric symptoms and safety. Patient refused to sign for medication consents today. -Medications : Will re-start patient on Seroquel 200 mg 3 times a day for mood stabilization/insomnia. Patient restarted on Effexor 225 mg daily for anxiety/mood. Restarted on Cogentin 1 mg twice a day for EPS prophylaxis. Patient will be restarted on paliperidone 3 mg daily and titrated up and transition back onto Invega Sustenna prior to discharge. Vistaril 25 mg every 6 hours when necessary for anxiety. -Started on ibuprofen and clonidine when necessary for symptoms related to opiate withdrawal. -Geodon PRN for agitation/aggression -CIWA protocol with Ativan PRN for ETOH withdrawal -Patient was counselled on substance abuse, however patient has very poor insight and is currently on substance abuse court order. -Patient was informed of the risks, benefits and side effects of the medication and refused to sign for medications. -will order CBC with diff, comp, UDS, TSH. -Internal Medicine consult to perform medical evaluation and physical. -NRT - nicotine patch -SW on board for discharge planning. Encourage patient to participate in groups to work on coping skills. We'll await demand for hearing court date as patient is currently on a deferral. Will also look into the result of patient breaking the court order for substance abuse treatment.
[2020-05-12] MEDS: ACETAMINOPHEN TAB 325 MG TAB PO PRN (20:35)
[2020-05-12] MEDS: LORazepam 1 MG TAB PO PRN (20:35)
--- NOTE | 2020-05-12 23:01 | P.PN ---
Progress Note - Text Progress Note Date: 05/12/20 Attempted to see the patient in the mental health unit at 9 PM on 05/12. The patient again refused to speak to the fha underwriter or be examined. Will attempt again tomorrow.
--- NOTE | 2020-05-13 10:06 | P.PN ---
Progress Note - Text Progress Note Date: 05/13/20 Interval History: Patient was seen laying down in his bed today and appeared irritable and fairly uncooperative with leader writer during the encounter. Patient did not want to leave his room. Patient offered no complaints and had poverty of content. He claims that "the meds are fine leave me alone". He appeared to be fairly distracted and more irritable when the lights were turned on. Patient turned over several times to try to evade talking to leader writer. He claims that he has a fair appetite and claimed to have slept fairly last night. He has not been going to any groups. At this time patient denies any suicidal or homical ideations, intent or plan. Patient denies any auditory, visual hallucinations. Patient denies any side effects from the medications and has been compliant with meds. Mental Status Exam: General Appearance: Patient appears to be older than stated age is alert, diff icult to redirect and appears to be evasive. Patient appears to have poor hygiene and grooming Behavior: Patient is seated without any agitated behavior. Appears to be irritable and uncooperative. Speech: Patient's speech is fluent and nonpressured. Demanding and irritable tone. Mood/Affect: Patient reports their mood is "ok", affect is incongruent yet irritable. Suicidality/Homicidality: Patient denies having any homicidal ideation intent or plan. Denies any suicidal thoughts no intent or plan Perceptions: Patient denies any visual hallucinations and denies any auditory hallucinations Though content/process: Poverty of content. [place]. Poor insight and minimizing his symptoms Memory and concentration: AOX3, grossly intact for the purposes of this session. Judgment and insight: poor/impulsive. Assessment Depressive disorder unspecified, rule out substance-induced mood disorder History of alcohol use disorder cannabis use disorder opioid use disorder, currently in withdrawal History of methamphetamine use disorder Nicotine dependence Plan: -Patient continues to meet criteria for inpatient psychiatric admission for symptom stabilization and safety. Patient is currently admitted under involuntary status and currently awaiting demand for hearing court date as patient is on deferral. -Medications: Continue with Seroquel 200 mg 3 times a day for mood stabilization/insomnia, Effexor 225 mg daily for anxiety/mood, Cogentin 1 mg twice a day for EPS prophylaxis, paliperidone 3 mg daily for psychosis. Continue with Vistaril 25 mg every 6 hours when necessary for anxiety. Will need to transition patient back onto Invega Sustenna prior to discharge. -CIWA protocol with Ativan when necessary for alcohol withdrawal. -Patient refused to give any blood work or urine for drug screen. -When necessary Ativan and Geodon for agitation/aggression. -NRT - nicotine patch -SW on board for discharge planning. Encouraged the patient to participate in milieu. We'll await demand for hearing court date as patient is currently on a deferral. Will also look into the result of patient breaking the court order for substance abuse treatment.
[2020-05-13] MEDS: PALIPERIDONE 3 MG TAB.ER.24 PO SCH (10:09)
[2020-05-13] MEDS: QUEtiapine 200 MG TAB PO SCH ×3 (10:09→21:18)
[2020-05-13] MEDS: NICOTINE 14MG/24HR PATCH TRANSDERM SCH ×2 (10:09→10:18)
[2020-05-13] MEDS: BENZTROPINE MESYLATE 1 MG TAB PO SCH ×2 (10:09→21:18)
[2020-05-13] MEDS: VENLAFAXINE HCL ER 75 MG CAP PO SCH (10:09)
[2020-05-13] MEDS: LORazepam 1 MG TAB PO PRN ×2 (14:25→21:17)
[2020-05-13] MEDS: IBUPROFEN 600 MG TAB PO PRN (14:25)
[2020-05-13] MEDS: cloNIDine HCL 0.1 MG TAB PO PRN (17:29)
[2020-05-14] MEDS: NICOTINE 14MG/24HR PATCH TRANSDERM SCH (08:19)
[2020-05-14] MEDS: BENZTROPINE MESYLATE 1 MG TAB PO SCH (08:19)
[2020-05-14] MEDS: QUEtiapine 200 MG TAB PO SCH ×2 (08:20→16:08)
[2020-05-14] MEDS: PALIPERIDONE 3 MG TAB.ER.24 PO SCH (08:20)
[2020-05-14] MEDS: VENLAFAXINE HCL ER 75 MG CAP PO SCH (08:20)
[2020-05-14] MEDS: LORazepam 1 MG TAB PO PRN ×2 (08:20→16:09)
--- NOTE | 2020-05-14 12:13 | P.PN ---
Progress Note - Text Progress Note Date: 05/14/20 Interval History: Patient was seen laying down in his bed today and appeared irritable and fairly uncooperative with residential mortgage underwriter during the encounter once again. Patient did not want to leave his room and refused to wake up. Patient rolled over several times when residential mortgage underwriter was trying to engage patient in conversation. Patient refused to answer any questions. Mental Status Exam: General Appearance: Patient appears to be older than stated age is lethargic, guarded/evasive. Patient appears to have poor hygiene and grooming Behavior: Uncooperative. Speech: Patient's speech is fluent and nonpressured. Irritable tone Mood/Affect: Unable to assess Suicidality/Homicidality: Unable to assess Perceptions: Unable to assess Though content/process: Poverty of content. [place]. Poor insight and minimizing his symptoms Memory and concentration: Unable to assess Judgment and insight: poor/impulsive. Assessment Depressive disorder unspecified, rule out substance-induced mood disorder History of alcohol use disorder cannabis use disorder opioid use disorder, currently in withdrawal History of methamphetamine use disorder Nicotine dependence Plan: -Patient continues to meet criteria for inpatient psychiatric admission for symptom stabilization and safety. Patient is currently admitted under involuntary status and currently awaiting demand for hearing court date as patient is on deferral. -Medications: Continue with Seroquel 200 mg 3 times a day for mood stabilization/insomnia, Effexor 225 mg daily for anxiety/mood, Cogentin 1 mg twice a day for EPS prophylaxis, paliperidone 3 mg daily for psychosis. Continue with Vistaril 25 mg every 6 hours when necessary for anxiety. [facility] need [facility]. -[facility] protocol with Ativan when necessary for alcohol withdrawal. -Patient refused to give any blood work or urine for drug screen. -When necessary Ativan and Geodon for agitation/aggression. -NRT - nicotine patch -SW on board for discharge planning. Encouraged the patient to participate in milieu. We'll await demand for hearing court date which is scheduled for 05/27/2020. Will also look into the result of patient breaking the court order for substance abuse treatment.
[2020-05-15] MEDS: QUEtiapine 200 MG TAB PO SCH ×4 (06:10→22:18)
[2020-05-15] MEDS: BENZTROPINE MESYLATE 1 MG TAB PO SCH ×3 (06:10→22:18)
[2020-05-15] MEDS: LORazepam 1 MG TAB PO PRN (09:05)
[2020-05-15] MEDS: PALIPERIDONE 3 MG TAB.ER.24 PO SCH (09:05)
[2020-05-15] MEDS: ACETAMINOPHEN TAB 325 MG TAB PO PRN (09:05)
[2020-05-15] MEDS: NICOTINE 14MG/24HR PATCH TRANSDERM SCH (09:05)
[2020-05-15] MEDS: VENLAFAXINE HCL ER 75 MG CAP PO SCH (09:05)
--- NOTE | 2020-05-15 13:14 | P.PN ---
Subjective Progress Note Date: 05/15/20 The patient was seen in the chart was reviewed. The case was discussed with the staff during the team meeting. The patient remained withdrawn and isolative in his room. The patient does not attend an immediate therapy. The patient refused to come to the office so for his follow-up. Patient was seen laying down in his bed today and fairly uncooperative during the session. The patient responded to only some questions with very short answers. The patient reports doing okay and reports fair sleep and appetite. He reports that his symptoms of withdrawal are improving slowly. Patient did not want to leave his room and refused to wake up. Objective - Vital Signs Vital signs: Vital Signs Temp 98.2 F 05/15/20 09:02 Pulse 130 H 05/15/20 09:02 Resp 18 05/15/20 09:02 BP 118/80 05/15/20 09:02 Pulse Ox 98 05/15/20 09:02 - Exam Mental Status Exam: General Appearance: Patient appears to be older than stated age is lethargic, guarded/evasive. Patient appears to have poor hygiene and grooming Behavior: Uncooperative. Speech: Patient's speech is fragmented and limited to short answers. Irritable tone Mood/Affect: Unable to assess Suicidality/Homicidality: Unable to assess Perceptions: Unable to assess Though content/process: Poverty of content. [place]. Poor insight and minimizing his symptoms Memory and concentration: Unable to assess Judgment and insight: poor/impulsive. Assessment and Plan Assessment: Assessment Depressive disorder unspecified, rule out substance-induced mood disorder History of alcohol use disorder cannabis use disorder opioid use disorder, currently in withdrawal History of methamphetamine use disorder Nicotine dependence Plan: Plan: -Patient continues to meet criteria for inpatient psychiatric admission for symptom stabilization and safety. Patient is currently admitted under involuntary status and currently awaiting demand for hearing court date as patient is on deferral. Encouraged the patient to participate in milieu. -Medications: Continue with Seroquel 200 mg 3 times a day for mood stabilization/insomnia. Continue Effexor 225 mg daily for anxiety/mood. Continue Cogentin 1 mg twice a day for EPS prophylaxis. Continue Paliperidone 3 mg daily for psychosis. Continue with Vistaril 25 mg every 6 hours when necessary for anxiety. Will need to transition patient back [facility] prior to discharge. -CIWA protocol with Ativan when necessary for alcohol withdrawal. -Patient refused to give any blood work or urine for drug screen. -When necessary Ativan and Piodon for agitation/aggression. -NRT - nicotine patch -SW on board for discharge planning. We'll await demand for hearing court date which is scheduled for 05/27/2020. Will also look into the result of patient breaking the court order for substance abuse treatment.
[2020-05-16] MEDS: QUEtiapine 200 MG TAB PO SCH ×3 (10:14→20:30)
[2020-05-16] MEDS: NICOTINE 14MG/24HR PATCH TRANSDERM SCH (10:14)
[2020-05-16] MEDS: BENZTROPINE MESYLATE 1 MG TAB PO SCH ×2 (10:15→20:31)
[2020-05-16] MEDS: VENLAFAXINE HCL ER 75 MG CAP PO SCH (10:15)
[2020-05-16] MEDS: LORazepam 1 MG TAB PO PRN ×2 (10:15→17:34)
[2020-05-16] MEDS: PALIPERIDONE 3 MG TAB.ER.24 PO SCH (10:15)
--- NOTE | 2020-05-16 12:17 | P.PN ---
Progress Note - Text Interval history: The patient is found in his room he refuses to speak in an interview room and refuses to participate in the session today. He is well known to our psychiatric service due to a history of multiple previous admissions. He is compliant with his medications he has been eating. Hygiene and grooming are impaired he has been sleeping throughout the night. Staff report no behavioral disturbances. Mental status exam: The patient is an overweight male he is disheveled he is lying in bed he makes no eye contact he provides only brief verbal responses. He does not respond to several questions asked. He appears to be in no acute physical distress. He demonstrates no verbal or physical aggressiveness or any involuntary repetitive movements. Insight and judgment impaired. Plan: The patient will continue on his current psychotropic medications. We'll monitor him for safety he is encouraged to participate in the milieu. Vital signs reviewed. CIWA scores reviewed.
[2020-05-16] MEDS: IBUPROFEN 600 MG TAB PO PRN (20:31)
[2020-05-16] MEDS: ACETAMINOPHEN TAB 325 MG TAB PO PRN (20:31)
[2020-05-17] MEDS: PALIPERIDONE 3 MG TAB.ER.24 PO SCH (10:05)
[2020-05-17] MEDS: ACETAMINOPHEN TAB 325 MG TAB PO PRN (10:05)
[2020-05-17] MEDS: QUEtiapine 200 MG TAB PO SCH ×3 (10:05→21:06)
[2020-05-17] MEDS: NICOTINE 14MG/24HR PATCH TRANSDERM SCH (10:05)
[2020-05-17] MEDS: LORazepam 1 MG TAB PO PRN (10:05)
[2020-05-17] MEDS: BENZTROPINE MESYLATE 1 MG TAB PO SCH ×2 (10:05→21:06)
[2020-05-17] MEDS: VENLAFAXINE HCL ER 75 MG CAP PO SCH (10:05)
--- NOTE | 2020-05-17 10:26 | P.PN ---
Progress Note - Text Interval history: The patient is found in the hallway he follows me to an interview room. Indicates his mood is fine. Staff report he slept throughout the night he states he ate breakfast. He indicates he would like to be discharged home as soon as possible. He states that he can stay with a friend and he does not require any further treatment. He has not been attending groups and he indicates he will not attend groups. He has no questions or concerns regarding his medications. We discussed his use of substances and possible inpatient chemical dependency treatment and he declines. Mental status exam: The patient is alert he is a disheveled appearance hygiene and grooming are impaired he is dressed in oversize clothing eye contact is poor speech is fluent spontaneous at times nonpressured. He reports having no hopelessness thinking no suicidal ideation intent or plan he reports no auditory or visual hallucinations or any specific delusions. He is a poor historian. He lacks insight into the reason for his presentation and his judgment is subsequently impaired. He demonstrates no verbal or physical aggressiveness he demonstrates no involuntary repetitive movements. He describes no homicidal ideation intent or plan. Plan: The patient will continue on his current psychotropic medications. He is encouraged to participate in the milieu we will continue to monitor him for safety. He requires continued psychiatric hospitalization for evaluation and treatment. Vital signs reviewed.
[2020-05-17] MEDS: IBUPROFEN 600 MG TAB PO PRN (13:52)
[2020-05-17] MEDS: cloNIDine HCL 0.1 MG TAB PO PRN (13:52)
[2020-05-17] MEDS: hydrOXYzine PAMOATE 25 MG CAP PO PRN (13:52)
[2020-05-17] MEDS: ZIPRASIDONE 20 MG VIAL IM PRN (17:05)
[2020-05-18] MEDS: NICOTINE 14MG/24HR PATCH TRANSDERM SCH (09:02)
[2020-05-18] MEDS: QUEtiapine 200 MG TAB PO SCH ×3 (09:02→21:10)
[2020-05-18] MEDS: BENZTROPINE MESYLATE 1 MG TAB PO SCH ×2 (09:02→20:53)
[2020-05-18] MEDS: LORazepam 1 MG TAB PO PRN ×3 (09:02→23:19)
[2020-05-18] MEDS: PALIPERIDONE 3 MG TAB.ER.24 PO SCH ×2 (09:02→20:53)
[2020-05-18] MEDS: VENLAFAXINE HCL ER 75 MG CAP PO SCH (09:02)
[2020-05-18] MEDS ORDERED: WATER FOR INJECTION, STERILE 10 ML IV ONE (09:09)
[2020-05-18] MEDS ORDERED: ZIPRASIDONE 20 MG VIAL IM ONE (09:09)
[2020-05-18] MEDS: ZIPRASIDONE 20 MG VIAL IM PRN (09:19)
--- NOTE | 2020-05-18 11:54 | P.PN ---
Progress Note - Text Progress Note Date: 05/18/20 Interval History: Patient was seen coming out of his room this morning and was directable and ag reeable designer/writer in the office. Patient continues to have poor hygiene and grooming and has a foul odor smell. He claims that he has been taking his medications and states that his been helping him and he feels "fine now". He continues to refuse rehab and minimizes his substance use. He was focused on discharge and claims that he is agreeable to the court order and would like to speak to his files supervisor. He states that his mood is improving and denies any anxiety at this time. He states that he was able to sleep throughout the night and has been eating his meals. He denies going to any groups. He denies any auditory or visual hallucinations. He denies any suicidal or homicidal ideations intent or plan. Mental Status Exam: General Appearance: Patient appears to be older than stated age is alert, attempts to cooperate. Patient appears to have poor hygiene and grooming with a foul odor Behavior: Patient is more cooperative today, no agitation. Speech: Patient's speech is fluent and nonpressured. Soft tone. Mood/Affect: He states that his mood is "fine" and affect is congruent and constricted. Suicidality/Homicidality: Denies Perceptions: Denies any auditory or visual hallucinations. Though content/process: Poverty of content. [place]. Mildly improving insight and continues to minimizing his symptoms Memory and concentration: Alert and oriented 3. Judgment and insight: poor/impulsive, mildly improving Assessment Depressive disorder unspecified, rule out substance-induced mood disorder History of alcohol use disorder cannabis use disorder opioid use disorder, currently in withdrawal History of methamphetamine use disorder Nicotine dependence Plan: -Patient continues to meet criteria for inpatient psychiatric admission for symptom stabilization and safety. Patient is currently admitted under involuntary status and currently awaiting demand for hearing court date as patient is on deferral. -Medications: Continue with Seroquel 200 mg 3 times a day for mood stabilization/insomnia, Effexor 225 mg daily for anxiety/mood, Cogentin 1 mg twice a day for EPS prophylaxis, increased paliperidone 3 mg twice a day for psychosis. Continue with Vistaril 25 mg every 6 hours when necessary for anxiety. [facility]. -Will discontinue CIWA at this time. -Patient refused to give any blood work or urine for drug screen. -When necessary Atgee and Piodon for agitation/aggression. -NRT - nicotine patch -SW on board for discharge planning. Encouraged the patient to participate in milieu. We'll await demand for hearing court date which is scheduled for 05/27/2020. Will also look into the result of patient breaking the court order for substance abuse treatment by contacting guardian. Patient claims that he would like to speak to his files supervisor about possible wave and stipulation.
[2020-05-18] MEDS: IBUPROFEN 600 MG TAB PO PRN (13:51)
[2020-05-18] MEDS: hydrOXYzine PAMOATE 25 MG CAP PO PRN ×2 (13:51→19:46)
[2020-05-18] MEDS: ACETAMINOPHEN TAB 325 MG TAB PO PRN (18:27)
[2020-05-18] MEDS: MAG HYDROX/AL HYDROX/SIMETH 30 ML CUP PO PRN (23:19)
[2020-05-19] MEDS: PALIPERIDONE 3 MG TAB.ER.24 PO SCH (09:07)
[2020-05-19] MEDS: NICOTINE 14MG/24HR PATCH TRANSDERM SCH (09:07)
[2020-05-19] MEDS: BENZTROPINE MESYLATE 1 MG TAB PO SCH ×2 (09:07→20:11)
[2020-05-19] MEDS: QUEtiapine 200 MG TAB PO SCH ×3 (09:07→21:03)
[2020-05-19] MEDS: VENLAFAXINE HCL ER 75 MG CAP PO SCH (09:08)
[2020-05-19] MEDS: LORazepam 1 MG TAB PO PRN ×2 (09:09→16:13)
[2020-05-19] MEDS: cloNIDine HCL 0.1 MG TAB PO PRN (09:09)
[2020-05-19] MEDS: IBUPROFEN 600 MG TAB PO PRN (09:09)
--- NOTE | 2020-05-19 10:22 | P.PN ---
Progress Note - Text Progress Note Date: 05/19/20 Interval History: Patient was seen wandering the hallways this morning and was directable and ag reeable ad copy writer in the office. Patient continues to have poor hygiene and grooming. Patient appeared to be superficially cooperative with the process description writer today and answered all questions appropriately. Patient was focused on discharge today and claims that "I want just a little bit more freedom before the autism motor specialist decides my fate". He claims that he has been taking his medications as prescribed and states that it is helping him with his mood and anxiety. He continues to refuse rehab and minimizes his substance use. He continues to claim that he is agreeable to the court order and would like to speak to his buffing machine operator semiautomatic. He states that he was able to sleep throughout the night and has been eating his meals. Patient claims that he is agreeable to take the long-acting injection tomorrow. He denies going to any groups. He denies any auditory or visual hallucinations. He denies any suicidal or homicidal ideations intent or plan. Mental Status Exam: General Appearance: Patient appears to be older than stated age is alert, attempts to cooperate. Patient appears to have poor hygiene and grooming with a foul odor. Disheveled appearance. Behavior: Patient is more cooperative today, no agitation. Superficially cooperative. Speech: Patient's speech is fluent and nonpressured. Mood/Affect: He states that his mood is "ok" and affect is congruent and constricted. Suicidality/Homicidality: Denies Perceptions: Denies any auditory or visual hallucinations. Though content/process: Poverty of content. [place]. Mildly improving insight and continues to minimizing his symptoms Memory and concentration: Alert and oriented 3. Judgment and insight: poor, mildly improving Assessment Depressive disorder unspecified, rule out substance-induced mood disorder History of alcohol use disorder cannabis use disorder opioid use disorder, currently in withdrawal History of methamphetamine use disorder Nicotine dependence Plan: -Patient continues to meet criteria for inpatient psychiatric admission for symptom stabilization and safety. Patient is currently admitted under involuntary status and currently awaiting demand for hearing court date as patient is on deferral. -Medications: Continue with Seroquel 200 mg 3 times a day for mood stabilization/insomnia, Effexor 225 mg daily for anxiety/mood, Cogentin 1 mg twice a day for EPS prophylaxis, increased paliperidone 3 mg daily +6 mg daily at bedtime for psychosis. Continue with Vistaril 25 mg every 6 hours when necessary for anxiety. Loading dose of 234 mg IM of Invega Sustenna tomorrow. -When necessary Ativan and Geodon for agitation/aggression. -NRT - nicotine patch -SW on board for discharge planning. Encouraged the patient to participate in milieu. We'll await demand for hearing court date which is scheduled for 05/27/20. Will also look into the result of patient breaking the court order for substance abuse treatment by contacting guardian as patient has a possible warrant. Will attempt to ask buffing machine operator semiautomatic today if they can agree to a wave and stipulation. Possible discharge tomorrow into police custody.
[2020-05-19 12:29] VITALS: BMI 27.1
[2020-05-19] MEDS: hydrOXYzine PAMOATE 25 MG CAP PO PRN ×2 (12:57→21:56)
[2020-05-19] MEDS: PALIPERIDONE 6 MG TAB.ER.24 PO SCH (20:11)
[2020-05-19] MEDS: MAG HYDROX/AL HYDROX/SIMETH 30 ML CUP PO PRN (21:56)
[2020-05-20] MEDS: LORazepam 1 MG TAB PO PRN ×3 (00:23→16:09)
[2020-05-20] MEDS: NICOTINE 14MG/24HR PATCH TRANSDERM SCH (08:42)
[2020-05-20] MEDS: VENLAFAXINE HCL ER 75 MG CAP PO SCH (08:42)
[2020-05-20] MEDS: PALIPERIDONE 3 MG TAB.ER.24 PO SCH (08:42)
[2020-05-20] MEDS: IBUPROFEN 600 MG TAB PO PRN (08:43)
[2020-05-20] MEDS: hydrOXYzine PAMOATE 25 MG CAP PO PRN (08:43)
[2020-05-20] MEDS: cloNIDine HCL 0.1 MG TAB PO PRN (08:43)
[2020-05-20] MEDS: BENZTROPINE MESYLATE 1 MG TAB PO SCH ×2 (08:43→21:15)
[2020-05-20] MEDS: QUEtiapine 200 MG TAB PO SCH ×3 (08:43→21:15)
[2020-05-20] MEDS ORDERED: PALIPERIDONE IM 234 MG/1.5 ML SYG IM ONE (09:00)
--- NOTE | 2020-05-20 13:31 | P.PN ---
Progress Note - Text Progress Note Date: 05/20/20 Interval History: Patient was seen wandering the hallways this morning and was directable and ag reeable com writer in the office. Patient continues to have poor hygiene and grooming. Patient appeared to be superficially cooperative with the principal technical writer today. Patient continues to be preoccupied with discharge and claims that he wants to be "free before it gets taken away". He states that he has not heard from his county attorney at this point and is still waiting for him to contact him over the phone. Patient claims that he left him a voicemail yesterday and today. He claims that he wants to go to his friend's house upon discharge. He states that his mood is "fine" and denied any anxiety today. Patient was agreeable to take the long-acting injection today. He states that he was able to sleep throughout the night and has been eating his meals. He denies going to any groups. He denies any auditory or visual hallucinations. He denies any suicidal or homicidal ideations intent or plan. Mental Status Exam: General Appearance: Patient appears to be older than stated age is alert, att empts to cooperate. Patient appears to have poor hygiene and grooming with a foul odor. Disheveled appearance. Behavior: Patient is more cooperative today, no agitation. Superficially cooperative. Speech: Patient's speech is fluent and nonpressured. Mood/Affect: He states that his mood is "fine" and affect is congruent and constricted. Suicidality/Homicidality: Denies Perceptions: Denies any auditory or visual hallucinations. Though content/process: Poverty of content. [place]. Superficial. Memory and concentration: Alert and oriented 3. Judgment and insight: Chronically poor, mildly improving Assessment Depressive disorder unspecified, rule out substance-induced mood disorder History of alcohol use disorder cannabis use disorder opioid use disorder, currently in withdrawal History of methamphetamine use disorder Nicotine dependence Plan: -Patient continues to meet criteria for inpatient psychiatric admission for symptom stabilization and safety. Patient is currently admitted under involuntary status and currently awaiting demand for hearing court date as patient is on deferral. -Medications: Continue with Seroquel 200 mg 3 times a day for mood stabilization/insomnia, Effexor 225 mg daily for anxiety/mood, Cogentin 1 mg twice a day for EPS prophylaxis, decreased paliperidone by mouth to 3 mg twice a day for psychosis/mood stabilization. Continue with Vistaril 25 mg every 6 hours when necessary for anxiety. Loading dose of 234 mg IM of Invega Sustenna given on 05/20/2020. -When necessary Ativan and Geodon for agitation/aggression. -NRT - nicotine patch -SW on board for discharge planning. Encouraged the patient to participate in milieu. We'll await demand for hearing court date which is scheduled for 05/27/2020. Will also look into the result of patient breaking the court order for substance abuse treatment by contacting guardian as patient has a possible warrant. Will attempt to ask county attorney today if they can agree to a wave and stipulation. Possible discharge tomorrow into police custody.
[2020-05-20] MEDS: ZIPRASIDONE 20 MG VIAL IM PRN (16:14)
[2020-05-20] MEDS: PALIPERIDONE 6 MG TAB.ER.24 PO SCH (21:15)
[2020-05-21] MEDS: MAG HYDROX/AL HYDROX/SIMETH 30 ML CUP PO PRN ×2 (01:15→12:08)
[2020-05-21] MEDS: LORazepam 1 MG TAB PO PRN ×2 (01:17→08:47)
[2020-05-21 05:56] VITALS: BP 122/70; PULSE 112; RESP 16
[2020-05-21] MEDS: NICOTINE 14MG/24HR PATCH TRANSDERM SCH (08:45)
[2020-05-21] MEDS: BENZTROPINE MESYLATE 1 MG TAB PO SCH (08:46)
[2020-05-21] MEDS: VENLAFAXINE HCL ER 75 MG CAP PO SCH (08:46)
[2020-05-21] MEDS: QUEtiapine 200 MG TAB PO SCH (08:46)
[2020-05-21] MEDS: PALIPERIDONE 3 MG TAB.ER.24 PO SCH (08:46)
[2020-05-21] MEDS: hydrOXYzine PAMOATE 25 MG CAP PO PRN ×2 (08:47→14:31)
[2020-05-21] MEDS ORDERED: WATER FOR INJECTION, STERILE 10 ML IV ONE (09:55)
[2020-05-21] MEDS ORDERED: ZIPRASIDONE 20 MG VIAL IM ONE (09:55)
[2020-05-21] MEDS: ZIPRASIDONE 20 MG VIAL IM PRN (10:04)
--- NOTE | 2020-05-21 10:41 | P.DS ---
Providers Date of admission: 05/11/20 21:06 Expected date of discharge: 05/21/20 Attending physician: Gamal Ruvalcaba MD Consults: 05/11/20 21:44 Consult Physician Routine Consulting Provider: [facility] Consult Reason/Comments: H&P and medical Do you want consulting provider notified?: Yes Primary care physician: Stated None - Discharge Diagnosis(es) (1) Depressive disorder Current Visit: Yes Status: Acute Priority: High (2) Alcohol abuse Current Visit: Yes Status: Acute Priority: Medium (3) Cannabis use disorder, mild, abuse Current Visit: Yes Status: Acute Priority: Medium (4) Opioid abuse Current Visit: Yes Status: Acute Priority: Medium (5) Methamphetamine abuse Current Visit: Yes Status: Acute Priority: Medium (6) Nicotine dependence Current Visit: Yes Status: Acute Priority: Low Hospital Course: Admission HPI: This patient is a 34-year-old male, who is homeless, unmarried who was admitted to the mental health unit after being picked up for refusing medications and follow-up as per court order. Patient presented to the hospital yesterday to the emergency department and was brought in by pickup for court order as she was apparently refusing medications at [facility]. Patient did not offer any acute complaints in the ER and states that he was "happy being homeless" and denied any suicidal or homicidal thoughts in the ER. Patient has had several inpatient psychiatric admissions in the past for depressive symptoms and polysubstance abuse. Patient was previously on a deferral and a demand for hearing will be filed. He had also had a substance abuse court order filed against him by [facility] in March. Patient was seen at the bedside today and was covered with blankets and appeared to have poor hygiene and grooming. Patient appeared to be irritable and uncooperative with typewriter tester and was fairly vague and guarded. Patient has very poor insight and judgment and was intrusive at times. He continues to state that he does not need medications and states that he does not need to be in the hospital. Patient claims that "it's my own body and I can refuse to get the shot if I want to". Patient was due for his Invega Sustenna 234 mg injection on 04/03 however did not show up for the appointment. He claims that his mood is "okay" and admits to anxiety. when asked about drug use he states that "I'm doing a little bit but not very much". He claims of poor sleep. He states that he is currently homeless and likes being homeless. He also mentioned that he left the rehab last time early and "got in trouble for it". He claims that he does not know why he is in the hospital and why the police picked him up. Patient denies any suicidal or homicidal ideations intent or plan. At this time patient denies any auditory or visual hallucinations. Patient admits to using cigarettes and heroin, and other recreational drugs however does not say which ones he is using in particular and refuses to give any blood work or urine to check UDS. Patient does have a history of alcohol abuse in the past. Hospital course: Upon admission to the unit patient was initially depressed, anxious and going through polysubstance withdrawal. Patient was initially brought in involuntarily for noncompliance with outpatient treatment and patient was previously on a deferral and demand for hearing date was filed. Patient gradually improved with regards to his mood and anxiety and withdrawal symptoms and became more compliant with his medications and following unit protocol. Patient got along well with other patients on the unit and followed unit protocol. Patient was compliant with the medications and denied any side effects throughout hospital course. Patient was mainly isolative in his room and did not go to any groups. Patient was started on his home dose of Effexor 225 mg daily for mood/anxiety, Seroquel 200 mg 3 times a day for mood stabilization, Cogentin 1 mg twice a day for EPS prophylaxis, patient was restarted on paliperidone by mouth and given a loading dose of Invega Sustenna 234 mg IM on 05/20/2020 and will be due for the next dose of 156 mg IM on 05/27/2020 and 3 weeks later for the maintenance dose of 234 mg which is to be given monthly. Patient was superficial about his stressors and preoccupied with discharge. Patient was also seen by medical team for history and physical exam, patient refused all blood work and labs. Throughout the course of the hospitalization patient gradually improved with regards to mood, anxiety, irritability, sleep and improved mildly with regards to his insight however this remains fairly superficial and patient continues to have chronically poor judgment. Patient appeared to be back to his baseline level of functioning on the day of discharge. On the day of discharge patient denied any suicidal or homicidal ideations intent or plan denied any auditory or visual hallucinations. Patient endorsed wanting to live for his future and his health. The patient denied any access to guns or weapons. Patient denied any paranoia and did not endorse any delusions. Patient does have a significant history of substance abuse and was counseled on abstaining from all substances including alcohol and marijuana. Patient was offered however adamantly declined inpatient substance-abuse rehab several times. Patient is currently on a substance use court order and social services counselor will contact patient's guardian prior to discharge to arrange for possible transfer of patient to police custody. Patient was also counseled on the medications and need for regular compliance and was encouraged to follow-up with their outpatient appointment for mental health and also for primary care. Mental status exam: General Appearance: Patient appears to be stated age is alert, directable, and superficially cooperative. Patient is in no acute distress and has marginal hygiene and grooming Behavior: Patient is calmly seated without any agitated behavior. Speech: Patient's speech is fluent and nonpressured. Mood/Affect: Patient reports their mood is "better", affect is congruent and constricted. Suicidality/Homicidality: Patient denies having any suicidal or homicidal ideation intent or plan. Perceptions: Patient denies any auditory or visual hallucinations. Though content/process: There is no evidence of any delusional thought content and thought process is linear and goal-directed. Memory and concentration: AOX3, grossly intact for the purposes of this session. Can spell "WORLD" backwards correctly. Preoccupied with discharge. 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 Patient will remain a chronically elevated risk of potential self-harm and/or harm to others due to his polysubstance abuse chronically poor judgment and insight. -Continue medications: Continue with Seroquel 200 mg 3 times a day for mood stabilization, Effexor 225 mg for mood/anxiety, Cogentin 1 mg twice a day for EPS prophylaxis, paliperidone 3 mg twice a day by mouth for 5 days then titrated off as patient has received his Invega Sustenna loading dose 234 mg IM on and will be due for his next injection of 156 mg dose on 05/27/2020 and monthly maintenance dose of 234 mg IM 3 weeks after. -Patient was counseled on the need for medication compliance and appropriate follow-up at mental health and also primary care for medical issues. Patient verbalized understanding and agreed. -Social work to contact guardian and arrange for discharge today. Social work also to arrange for patients follow up appointments with [facility] for psychiatric care along with follow up with primary care provider. -Patient is currently on a substance use court order and social services counselor will contact patient's guardian prior to discharge to arrange for possible transfer of patient to police custody. -Prior to patient being discharged from the unit patient will need to meet with the research editor and was agreeable to sign the wave and stipulation for treatment order. -Patient counseled on abstaining from recreational drugs and marijuana and alcohol. Was informed/educated on the adverse effects on their physical and mental health. Patient verbally agreed and understood. Patient was offered substance abuse treatment however adamantly declined at this time. -Patient was instructed to return to the hospital or seek immediate medical care if their psychiatric or medical symptoms do worsen or reoccur. Allergies Allergy/AdvReac Type Severity Reaction Status Date / Time No Known Allergies Allergy Verified 05/11/20 21:21 Vital Signs Temp 98.0 F 05/20/20 21:32 Pulse 112 H 05/21/20 05:56 Resp 16 05/21/20 05:56 BP 122/70 05/21/20 05:56 Pulse Ox 97 05/20/20 00:23 Patient Condition at Discharge: Stable Plan - Discharge Summary Discharge Rx Participant: No New Discharge Prescriptions: New Benztropine Mesylate [Cogentin] 1 mg PO BID 30 Days tab Venlafaxine HCl ER [Effexor XR] 225 mg PO DAILY 30 Days cap.er.24h Nicotine 14Mg/24Hr Patch [Habitrol] 1 patch TRANSDERM DAILY 14 Days patch Paliperidone [Invega] 3 mg PO BID 4 Days tab.er.24 Paliperidone IM [Invega Sustenna] 156 mg IM ONCE #1 syr Ibuprofen [Motrin] 600 mg PO Q8H PRN tab PRN Reason: Moderate To Severe Pain QUEtiapine [SEROquel] 200 mg PO TID 30 Days tab Acetaminophen Tab [Tylenol] 650 mg PO Q4HR PRN tab PRN Reason: Pain/Discomfort hydrOXYzine PAMOATE [Vistaril] 25 mg PO BID PRN 30 Days cap PRN Reason: Anxiety Discontinued Benztropine Mesylate [Cogentin] 1 mg PO BID 30 Days tab Venlafaxine HCl [Effexor XR] 225 mg PO DAILY 30 Days tab Nicotine 14Mg/24Hr Patch [Habitrol] 1 patch TRANSDERM DAILY 14 Days patch QUEtiapine [SEROquel] 200 mg PO TID 30 Days tab hydrOXYzine PAMOATE [Vistaril] 50 mg PO BID PRN 30 Days cap PRN Reason: Anxiety Paliperidone IM [Invega Sustenna] 234 mg IM Q28D Discharge Medication List Acetaminophen Tab [Tylenol] 650 mg PO Q4HR PRN tab 05/20/20 [Rx] Benztropine Mesylate [Cogentin] 1 mg PO BID 30 Days tab 05/20/20 [Rx] Ibuprofen [Motrin] 600 mg PO Q8H PRN tab 05/20/20 [Rx] Nicotine 14Mg/24Hr Patch [Habitrol] 1 patch TRANSDERM DAILY 14 Days patch 05/20/20 [Rx] Paliperidone IM [Invega Sustenna] 156 mg IM ONCE #1 syr 05/20/20 [Rx] Paliperidone [Invega] 3 mg PO BID 4 Days tab.er.24 05/20/20 [Rx] QUEtiapine [SEROquel] 200 mg PO TID 30 Days tab 05/20/20 [Rx] Venlafaxine HCl ER [Effexor XR] 225 mg PO DAILY 30 Days cap.er.24h 05/20/20 [Rx] hydrOXYzine PAMOATE [Vistaril] 25 mg PO BID PRN 30 Days cap 05/20/20 [Rx] Follow up Appointment(s)/Referral(s): None,Stated [Primary Care Provider] - 1-2 days Patient Instructions/Handouts: How to Stop Smoking (DC), Depression (DC), Narcotic Use Disorder (DC) Activity/Diet/Wound Care/Special Instructions: Activity and diet as tolerated. Avoid the use of street drugs and alcohol. Take all medications as prescribed. When you are in need of refills on your medications please contact your medical provider and/or outpatient psychiatrist to have this done. Please go to scheduled outpatient appointment for aftercare treatment. If symptoms return or become worse, call the crisis line at and/or go to the nearest emergency room for evaluation. Discharge Disposition: HOME SELF-CARE
[2020-05-21 13:34] VITALS: TEMP 97.7
== END 2020-05-21 14:57 | disposition home or self-care (01) | DRG 881 ==
LOC: EC 17:23 → EEVIPCON 17:23 → 3MHU 21:06
PROVIDERS: ADMIT Psychiatry & Neurology Psychiatry; ATTEND Psychiatry & Neurology Psychiatry
DX: F32.9 Major depressive disorder, single episode, unspecified (principal); F11.23 Opioid dependence with withdrawal; Z91.128 Patient's intentional underdosing of medication regimen for other reason; B19.20 Unspecified viral hepatitis C without hepatic coma; Z91.19 Patient's noncompliance with other medical treatment and regimen; F15.10 Other stimulant abuse, uncomplicated; F10.10 Alcohol abuse, uncomplicated; T43.596A Underdosing of other antipsychotics and neuroleptics, initial encounter; F41.9 Anxiety disorder, unspecified; I10 Essential (primary) hypertension; K21.9 Gastro-esophageal reflux disease without esophagitis; M54.9 Dorsalgia, unspecified; G56.03 Carpal tunnel syndrome, bilateral upper limbs; F12.10 Cannabis abuse, uncomplicated; G47.00 Insomnia, unspecified; E66.3 Overweight; Z68.27 Body mass index [BMI] 27.0-27.9, adult; F17.210 Nicotine dependence, cigarettes, uncomplicated; Z71.6 Tobacco abuse counseling; Z79.899 Other long term (current) drug therapy; Z91.5 Personal history of self-harm; Z59.0 Homelessness; Z71.3 Dietary counseling and surveillance; Z71.51 Drug abuse counseling and surveillance of drug abuser; Y63.6 Underdosing and nonadministration of necessary drug, medicament or biological substance; Z82.49 Family history of ischemic heart disease and other diseases of the circulatory system; Z82.61 Family history of arthritis
CPT/HCPCS: 82075; 99284

== ENCOUNTER 2020-05-30 11:56 | Emergency (ER) | payer OTHER ==
[2020-05-30 12:04] VITALS: BP 112/68; PULSE 78; RESP 18; TEMP 98.7
--- NOTE | 2020-05-30 12:16 | ED ---
General Adult HPI - General Chief complaint: Overdose Stated complaint: Overdose Time Seen by Provider: 05/30/20 12:00 Source: patient, RN notes reviewed, old records reviewed Mode of arrival: ambulatory Limitations: no limitations - History of Present Illness Initial comments: This is a 34-year-old male who presents emergency department after having used heroin. EMS was called because he wasn't acting right. Patient admits to shooting up heroin. Patient states he feels fine now he has no complaints he denies any other drug use. Patient denies any alcohol. Patient denies suicidal homicidal ideations. Patient denies any physical complaints now other than being a little tired. Patient denies any palpitations patient denies chest pain difficulty breathing first breath. Patient denies any recent fever chills or cough per patient denies any abdominal pain. Patient states he is homeless. - Related Data Previous Rx's Medication Instructions Recorded Acetaminophen Tab [Tylenol] 650 mg PO Q4HR PRN tab 05/20/20 Benztropine Mesylate [Cogentin] 1 mg PO BID 30 Days tab 05/20/20 Ibuprofen [Motrin] 600 mg PO Q8H PRN tab 05/20/20 Nicotine 14Mg/24Hr Patch [Habitrol] 1 patch TRANSDERM DAILY 14 Days 05/20/20 patch Paliperidone IM [Invega Sustenna] 156 mg IM ONCE #1 syr 05/20/20 Paliperidone [Invega] 3 mg PO BID 4 Days tab.er.24 05/20/20 QUEtiapine [SEROquel] 200 mg PO TID 30 Days tab 05/20/20 Venlafaxine HCl ER [Effexor XR] 225 mg PO DAILY 30 Days cap.er.24h 05/20/20 hydrOXYzine PAMOATE [Vistaril] 25 mg PO BID PRN 30 Days cap 05/20/20 Allergies Allergy/AdvReac Type Severity Reaction Status Date / Time No Known Allergies Allergy Verified 05/30/20 12:04 Review of Systems ROS Statement: Those systems with pertinent positive or pertinent negative responses have been documented in the HPI. ROS Other: All systems not noted in ROS Statement are negative. Past Medical History Past Medical History: GERD/Reflux, Hypertension Additional Past Medical History / Comment(s): Hepatitis C, DDD, back pain, bilateral carpel tunnel syndrome. ETOH occassionally drinks 1 5th vodka more than 3 times a week. He reports that he has heart disease that was found when he had kidney problems but he denies having a stress test or cardiac catheterization. History of Any Multi-Drug Resistant Organisms: None Reported MDRO Source:: unknown Past Surgical History: No Surgical Hx Reported Past Anesthesia/Blood Transfusion Reactions: Unable to Obtain Additional Past Anesthesia/Blood Transfusion Reaction / Comment(s): Pt states he has never had surgery. Past Psychological History: Anxiety, Depression Smoking Status: Current every day smoker Past Alcohol Use History: None Reported Past Drug Use History: Heroin - Past Family History Father Family Medical History: Coronary Artery Disease (CAD) Additional Family Medical History / Comment(s): Father is . Mother Family Medical History: Rheumatoid Arthritis (RA) Additional Family Medical History / Comment(s): Mother is . General Exam - General Exam Comments Initial Comments: GENERAL: Patient is well-developed and well-nourished. Patient is nontoxic and well- hydrated and is in no acute distress. ENT: Neck is soft and supple. No significant lymphadenopathy is noted. Oropharynx is clear. Moist mucous membranes. Neck has full range of motion without eliciting any pain. EYES: The sclera were anicteric and conjunctiva were pink and moist. Extraocular movements were intact and pupils were equal round and reactive to light. Eyelids were unremarkable. PULMONARY: Unlabored respirations. Good breath sounds bilaterally. No audible rales rhonchi or wheezing was noted. CARDIOVASCULAR: There is a regular rate and rhythm without any murmurs gallops or rubs. ABDOMEN: Soft and nontender with normal bowel sounds. SKIN: Skin is clear with no lesions or rashes and otherwise unremarkable. NEUROLOGIC: Patient is alert and oriented x3. Cranial nerves II through XII are grossly intact. Motor and sensory are also intact. Normal speech, volume and content. Symmetrical smile. MUSCULOSKELETAL: Normal extremities with adequate strength and full range of motion. LYMPHATICS: No significant lymphadenopathy is noted PSYCHIATRIC: Normal psychiatric evaluation. Limitations: no limitations Course Vital Signs 05/30/20 11:58 Temperature 98.7 F Pulse Rate 78 Respiratory 18 Rate Blood Pressure 112/68 O2 Sat by Pulse 98 Oximetry Medical Decision Making - Medical Decision Making Patient was alert and oriented 3 and was up eating and walking around and did not want to stay in the emergency department. Disposition Clinical Impression: Heroin overdose Disposition: HOME SELF-CARE Condition: Good Instructions (If sedation given, give patient instructions): Adult Overdose (ED), Opioid Use Disorder (ED) Is patient prescribed a controlled substance at d/c from ED?: No Referrals: None,Stated [Primary Care Provider] - 1-2 days Time of Disposition: 12:16
== END 2020-05-30 12:50 | disposition home or self-care (01) ==
LOC: EC 11:56
DX: T40.1X1A Poisoning by heroin, accidental (unintentional), initial encounter (principal); F17.200 Nicotine dependence, unspecified, uncomplicated
CPT/HCPCS: 99284

== ENCOUNTER 2020-06-09 11:05 | Emergency (ER) | payer OTHER ==
[2020-06-09 11:10] VITALS: BP 107/65; PULSE 87; RESP 16; TEMP 97.6
[2020-06-09] MEDS ORDERED: LIDOCAINE 1% INJ 10MG/ML (20 ML MDV) SQ ONE (11:17)
--- NOTE | 2020-06-09 11:25 | ED ---
Skin/Abscess/FB HPI - General Chief complaint: Skin/Abscess/Foreign Body Stated complaint: abscess Time Seen by Provider: 06/09/20 11:12 Source: patient, RN notes reviewed Mode of arrival: ambulatory Limitations: no limitations - History of Present Illness Initial comments: This a 34-year-old male presents emergency Department chief complaint abscess to his right forearm. Patient states it started 2 days ago. Patient is a heroin user states that he injected this region. He did not break off a needle. Patient has appears or chills he did attempt to cut open himself. - Related Data Previous Rx's Medication Instructions Recorded Acetaminophen Tab [Tylenol] 650 mg PO Q4HR PRN tab 05/20/20 Benztropine Mesylate [Cogentin] 1 mg PO BID 30 Days tab 05/20/20 Ibuprofen [Motrin] 600 mg PO Q8H PRN tab 05/20/20 Nicotine 14Mg/24Hr Patch [Habitrol] 1 patch TRANSDERM DAILY 14 Days 05/20/20 patch Paliperidone IM [Invega Sustenna] 156 mg IM ONCE #1 syr 05/20/20 Paliperidone [Invega] 3 mg PO BID 4 Days tab.er.24 05/20/20 QUEtiapine [SEROquel] 200 mg PO TID 30 Days tab 05/20/20 Venlafaxine HCl ER [Effexor XR] 225 mg PO DAILY 30 Days cap.er.24h 05/20/20 hydrOXYzine PAMOATE [Vistaril] 25 mg PO BID PRN 30 Days cap 05/20/20 Cephalexin [Keflex] 500 mg PO Q6HR #40 cap 06/09/20 Ibuprofen [Motrin] 800 mg PO Q6HR #30 tab 06/09/20 Sulfamethox-Tmp 800-160Mg [Bactrim 1 each PO Q12HR #20 tab 06/09/20 Ds] Allergies Allergy/AdvReac Type Severity Reaction Status Date / Time No Known Allergies Allergy Verified 06/09/20 11:10 Review of Systems ROS Statement: Those systems with pertinent positive or pertinent negative responses have been documented in the HPI. ROS Other: All systems not noted in ROS Statement are negative. Past Medical History Past Medical History: GERD/Reflux, Hypertension Additional Past Medical History / Comment(s): Hepatitis C, DDD, back pain, bilateral carpel tunnel syndrome. ETOH occassionally drinks 1 5th vodka more than 3 times a week. He reports that he has heart disease that was found when he had kidney problems but he denies having a stress test or cardiac catheterization. History of Any Multi-Drug Resistant Organisms: None Reported MDRO Source:: unknown Past Surgical History: No Surgical Hx Reported Past Anesthesia/Blood Transfusion Reactions: Unable to Obtain Additional Past Anesthesia/Blood Transfusion Reaction / Comment(s): Pt states he has never had surgery. Past Psychological History: Anxiety, Depression Smoking Status: Current every day smoker Past Alcohol Use History: None Reported Past Drug Use History: Heroin - Past Family History Father Family Medical History: Coronary Artery Disease (CAD) Additional Family Medical History / Comment(s): Father is . Mother Family Medical History: Rheumatoid Arthritis (RA) Additional Family Medical History / Comment(s): Mother is . General Exam Limitations: no limitations General appearance: alert, in no apparent distress Head exam: Present: atraumatic, normocephalic, normal inspection Respiratory exam: Present: normal lung sounds bilaterally. Absent: respiratory distress, wheezes, rales, rhonchi, stridor Cardiovascular Exam: Present: regular rate, normal rhythm, normal heart sounds. Absent: systolic murmur, diastolic murmur, rubs, gallop, clicks Extremities exam: Present: other (Right forearm there is a 1 cm abscess with superficial laceration noted over and surrounding erythema approximately 3 cm) Course Vital Signs 06/09/20 11:08 Temperature 97.6 F Pulse Rate 87 Respiratory 16 Rate Blood Pressure 107/65 O2 Sat by Pulse 98 Oximetry Procedures - Incision & Drainage Consent Obtained: verbal consent, written consent Site: upper extremity (right abscess) Anesthetic Used: lidocaine 1%, without epi Amount (mLs): 8 I&D Cleaning Method: Betadine Sterile Field Used?: No Scalpel Used: #11 Needle Aspiration Performed?: No Irrigation Performed?: Yes I&D Drainage Obtained: Pus, Blood, Serous Culture Obtained?: No Patient Tolerated Procedure: well, no complications Medical Decision Making - Medical Decision Making 34-year-old presented for arm abscess. I&D was performed. Patient be discharged with antibiotics and ibuprofen. Parameters discussed. Disposition Clinical Impression: Abscess of right forearm Disposition: HOME SELF-CARE Condition: Stable Instructions (If sedation given, give patient instructions): Abscess (ED), Abscess Incision and Drainage (DC) Additional Instructions: Please return to the Emergency Department if symptoms worsen or any other concerns. Prescriptions: Sulfamethox-Tmp 800-160Mg [Bactrim Ds] 1 each PO Q12HR #20 tab Cephalexin [Keflex] 500 mg PO Q6HR #40 cap Ibuprofen [Motrin] 800 mg PO Q6HR #30 tab Is patient prescribed a controlled substance at d/c from ED?: No Referrals: None,Stated [Primary Care Provider] - 1-2 days
== END 2020-06-09 11:41 | disposition home or self-care (01) ==
LOC: EC 11:05
DX: L02.413 Cutaneous abscess of right upper limb (principal); S51.811A Laceration without foreign body of right forearm, initial encounter; F17.200 Nicotine dependence, unspecified, uncomplicated
CPT/HCPCS: 99282; 10060; J2001

== ENCOUNTER 2020-06-11 16:13 | Emergency (ER) | payer OTHER ==
[2020-06-11 16:16] VITALS: BP 121/84; PULSE 83; RESP 16; TEMP 98
[2020-06-11] MEDS ORDERED: SODIUM CHLORIDE 0.9% 1,000 ML IV STA (16:41)
[2020-06-11] MEDS ORDERED: NALOXONE 0.4 MG/ML 10 ML VIAL IVP PRN (16:58)
--- NOTE | 2020-06-11 17:01 | ED ---
Overdose HPI - General Chief Complaint: Overdose Stated Complaint: Overdose Time Seen by Provider: 06/11/20 16:23 Source: EMS Mode of arrival: EMS Limitations: no limitations - History of Present Illness Initial Comments: Patient is a 34-year-old male with history of heroin abuse presenting to emergency Department with a chief complaint of hearing use. Patient states he was using a "20 pack" of heroin. States he might possibly overdose. Patient states he doesn't know who contacted EMS. Patient denies any chest palpitations, chest pain or short of breath. States he uses heroin frequently. Denies any alcohol use. Patient states he is hungry and wants to eat. Patient denies suicidal thoughts or ideations. - Related Data Home Medications Medication Instructions Recorded Confirmed Sulfamethox-Tmp 800-160Mg [Bactrim 1 tab PO Q12HR 06/11/20 06/11/20 Ds] Previous Rx's Medication Instructions Recorded Acetaminophen Tab [Tylenol] 650 mg PO Q4HR PRN tab 05/20/20 Benztropine Mesylate [Cogentin] 1 mg PO BID 30 Days tab 05/20/20 Ibuprofen [Motrin] 600 mg PO Q8H PRN tab 05/20/20 Nicotine 14Mg/24Hr Patch [Habitrol] 1 patch TRANSDERM DAILY 14 Days 05/20/20 patch Paliperidone IM [Invega Sustenna] 156 mg IM ONCE #1 syr 05/20/20 Paliperidone [Invega] 3 mg PO BID 4 Days tab.er.24 05/20/20 QUEtiapine [SEROquel] 200 mg PO TID 30 Days tab 05/20/20 Venlafaxine HCl ER [Effexor XR] 225 mg PO DAILY 30 Days cap.er.24h 05/20/20 hydrOXYzine pamoate [Vistaril] 25 mg PO BID PRN 30 Days cap 05/20/20 Cephalexin [Keflex] 500 mg PO Q6HR #40 cap 06/09/20 Allergies Allergy/AdvReac Type Severity Reaction Status Date / Time No Known Allergies Allergy Verified 06/11/20 17:57 Review of Systems ROS Statement: Those systems with pertinent positive or pertinent negative responses have been documented in the HPI. ROS Other: All systems not noted in ROS Statement are negative. Past Medical History Past Medical History: GERD/Reflux, Hypertension Additional Past Medical History / Comment(s): Hepatitis C, DDD, back pain, bilateral carpel tunnel syndrome. ETOH occassionally drinks 1 5th vodka more than 3 times a week. He reports that he has heart disease that was found when he had kidney problems but he denies having a stress test or cardiac catheterization. History of Any Multi-Drug Resistant Organisms: None Reported MDRO Source:: unknown Past Surgical History: No Surgical Hx Reported Past Anesthesia/Blood Transfusion Reactions: Unable to Obtain Additional Past Anesthesia/Blood Transfusion Reaction / Comment(s): Pt states he has never had surgery. Past Psychological History: Anxiety, Depression Smoking Status: Current every day smoker Past Alcohol Use History: None Reported Past Drug Use History: Heroin - Past Family History Father Family Medical History: Coronary Artery Disease (CAD) Additional Family Medical History / Comment(s): Father is . Mother Family Medical History: Rheumatoid Arthritis (RA) Additional Family Medical History / Comment(s): Mother is . General Exam Limitations: no limitations General appearance: alert, in no apparent distress, other (Drowsy) Head exam: Present: atraumatic, normocephalic, normal inspection Eye exam: Present: normal appearance, PERRL, EOMI Pupils: Present: normal accommodation ENT exam: Present: normal exam, normal oropharynx, mucous membranes moist, TM's normal bilaterally, normal external ear exam Neck exam: Present: normal inspection, full ROM Respiratory exam: Present: normal lung sounds bilaterally. Absent: respiratory distress, wheezes, decreased breath sounds Cardiovascular Exam: Present: regular rate, normal rhythm, normal heart sounds Extremities exam: Present: normal inspection, full ROM. Absent: tenderness Back exam: Present: normal inspection, full ROM. Absent: tenderness Neurological exam: Present: alert, oriented X3, normal gait Psychiatric exam: Present: normal affect, normal mood Skin exam: Present: warm, dry, intact, normal color Course Vital Signs 06/11/20 16:15 Temperature 98.0 F Pulse Rate 83 Respiratory 16 Rate Blood Pressure 121/84 O2 Sat by Pulse 100 Oximetry Medical Decision Making - Medical Decision Making Patient is a 34-year-old male with history apparently is presenting to the emergency department with chief complaint of hearing. Initial evaluation patient appears to be slightly drowsy. Vitals are stable. Patient is homeless but is denying any suicidal thoughts or ideations. Patient given information regarding homeless sensors in the region, as well as other social services designee available. Patient given food and drinks. Patient also given IV fluids. Patient is walking, alert and oriented. Patient given 1 mg of Narcan in the embolus. Patient will be discharged. Return parameters thoroughly discussed the patient is a sitting agreeable. Case discussed with physician. Disposition Clinical Impression: Heroin overdose Disposition: HOME SELF-CARE Condition: Stable Instructions (If sedation given, give patient instructions): Adult Overdose (ED) Additional Instructions: Use the provided information to find a homeless Center and other resources to help with the heroin addiction. Is patient prescribed a controlled substance at d/c from ED?: No Referrals: None,Stated [Primary Care Provider] - 1-2 days Time of Disposition: 18:15
[2020-06-11] MEDS ORDERED: NALOXONE 0.4 MG/ML 1 ML VIAL IV PRN (17:02)
== END 2020-06-11 18:50 | disposition home or self-care (01) ==
LOC: EC 16:13
DX: T40.1X1A Poisoning by heroin, accidental (unintentional), initial encounter (principal); F17.200 Nicotine dependence, unspecified, uncomplicated
CPT/HCPCS: 96360; 99284

== ENCOUNTER 2020-07-15 20:52 | Observation (INO) | payer OTHER ==
[2020-07-15] MEDS ORDERED: VANCOMYCIN IV PER PHARMACY 1 EACH MISC MISCELLANE PRN (21:23)
[2020-07-15] MEDS ORDERED: PIPERACILLIN-TAZOBACTAM 3.375 GM in SODIUM CHLORIDE 0.9% 100 ML IVPB STA (21:23)
[2020-07-15] MEDS ORDERED: IBUPROFEN 600 MG TAB PO STA (21:23)
[2020-07-15] MEDS ORDERED: VANCOMYCIN 1,500 MG in SODIUM CHLORIDE 0.9% 250 ML IVPB STA (21:26)
[2020-07-15] MEDS: SODIUM CHLORIDE 0.9% 500 ML 500 ML IV SCH ×2 (21:39→22:25)
[2020-07-15 21:51] LABS: Basophils # (A) 0.1 k/uL (0-0.2); Basophils % (A) 1 %; Eosinophils # (A) 0.2 k/uL (0-0.7); Eosinophils % (A) 2 %; HCT 39.5 % (39.0-53.0); HGB 13.1 gm/dL (13.0-17.5); Lymphocytes # (A) 1.8 k/uL (1.0-4.8); Lymphocytes % (A) 21 %; MCH 27.8 pg (25.0-35.0); MCHC 33.2 g/dL (31.0-37.0); MCV 83.9 fL (80.0-100.0); Mean Platelet Volume 7.9; Monocytes # (A) 0.5 k/uL (0-1.0); Monocytes % (A) 5 %; Neutrophils # (A) 5.9 k/uL (1.3-7.7); Neutrophils % (A) 69 %; Platelet Count 206 k/uL (150-450); RBC 4.71 m/uL (4.30-5.90); RDW 13.3 % (11.5-15.5); WBC 8.5 k/uL (3.8-10.6)
[2020-07-15 21:58] LABS: ALT 129 U/L (4-49); AST 121 U/L (17-59); African American GFR (CKD) >90 (>60 ml/min/1.73 sqM); Albumin 3.8 g/dL (3.5-5.0); Alkaline Phosphatase 53 U/L (38-126); Anion Gap 8 mmol/L; Blood Urea Nitrogen 8 mg/dL (9-20); Calcium 9.2 mg/dL (8.4-10.2); Carbon Dioxide 24 mmol/L (22-30); Chloride 103 mmol/L (98-107); Glucose 111 mg/dL (74-99); Non-African American GFR(CKD) >90 (>60 ml/min/1.73 sqM); Potassium 3.6 mmol/L (3.5-5.1); Sodium 135 mmol/L (137-145); Total Bilirubin 0.5 mg/dL (0.2-1.3); Total Protein 7.6 g/dL (6.3-8.2)
[2020-07-15 22:02] LABS: Partial Thromboplastin Time 23.8 sec (22.0-30.0); Prothrombin Time 10.3 sec (9.0-12.0)
[2020-07-15] MEDS ORDERED: LORazepam 0.5 MG TAB PO PRN (22:24)
[2020-07-15] MEDS ORDERED: NALOXONE 0.4 MG/ML 1 ML VIAL IV PRN (22:24)
[2020-07-15] MEDS: SODIUM CHLORIDE 0.9% 1,000 ML IV SCH (22:24)
[2020-07-15] MEDS ORDERED: MORPHINE SULFATE 4 MG/ML SYRINGE IV STA (22:35)
[2020-07-15] MEDS ORDERED: DIPH,PERTUS(ACELL)TETVAC-LF 0.5 ML VIAL IM ONE (22:35)
--- NOTE | 2020-07-15 22:42 | ED ---
General Adult HPI - General Chief complaint: Skin/Abscess/Foreign Body Stated complaint: L Arm Abscess Time Seen by Provider: 07/15/20 21:05 Source: patient, RN notes reviewed, old records reviewed Mode of arrival: ambulatory Limitations: no limitations - History of Present Illness Initial comments: 34-year-old male patient presents ED chief complaint of left forearm abscess. Patient has history of IV drug use he says he injects methamphetamine. Patient reports that the last 2 days has had that infections left forearm. He reports that it has been getting worse. He is denying fevers. He denies chest pain shortness breath or any other complaints. Systemic: Pt denies fatigue, fever/chills, rash. Pt denies weakness, night sweats, weight loss. Neuro: Pt denies headache, visual disturbances, syncope or pre-syncope. HEENT: Pt denies ocular discharge or irritation, otalgia, rhinorrhea, pharyngitis or notable lymphadenopathy. Cardiopulmonary: Pt denies chest pain, SOB, heart palpitations, dyspnea on exertion. Abdominal/GI: Pt denies abdominal pain, n/v/d. : Pt denies dysuria, burning w/ urination, frequency/urgency. Denies new onset urinary or bowel incontinence. MSK: Pt denies myalgia, loss of strength or function in extremities. Neuro: Pt denies new onset weakness, paresthesias. - Related Data Home Medications Medication Instructions Recorded Confirmed Sulfamethox-Tmp 800-160Mg [Bactrim 1 tab PO Q12HR 06/11/20 07/15/20 Ds] Previous Rx's Medication Instructions Recorded Acetaminophen Tab [Tylenol] 650 mg PO Q4HR PRN tab 05/20/20 Benztropine Mesylate [Cogentin] 1 mg PO BID 30 Days tab 05/20/20 Ibuprofen [Motrin] 600 mg PO Q8H PRN tab 05/20/20 Nicotine 14Mg/24Hr Patch [Habitrol] 1 patch TRANSDERM DAILY 14 Days 05/20/20 patch Paliperidone IM [Invega Sustenna] 156 mg IM ONCE #1 syr 05/20/20 Paliperidone [Invega] 3 mg PO BID 4 Days tab.er.24 05/20/20 QUEtiapine [SEROquel] 200 mg PO TID 30 Days tab 05/20/20 Venlafaxine HCl ER [Effexor XR] 225 mg PO DAILY 30 Days cap.er.24h 05/20/20 hydrOXYzine pamoate [Vistaril] 25 mg PO BID PRN 30 Days cap 05/20/20 Cephalexin [Keflex] 500 mg PO Q6HR #40 cap 06/09/20 Allergies Allergy/AdvReac Type Severity Reaction Status Date / Time No Known Allergies Allergy Verified 07/15/20 22:06 Review of Systems ROS Statement: Those systems with pertinent positive or pertinent negative responses have been documented in the HPI. ROS Other: All systems not noted in ROS Statement are negative. Past Medical History Past Medical History: GERD/Reflux, Hypertension Additional Past Medical History / Comment(s): Hepatitis C, DDD, back pain, bilateral carpel tunnel syndrome. ETOH occassionally drinks 1 5th vodka more than 3 times a week. He reports that he has heart disease that was found when he had kidney problems but he denies having a stress test or cardiac catheterization. History of Any Multi-Drug Resistant Organisms: None Reported MDRO Source:: unknown Past Surgical History: No Surgical Hx Reported Past Anesthesia/Blood Transfusion Reactions: Unable to Obtain Additional Past Anesthesia/Blood Transfusion Reaction / Comment(s): Pt states he has never had surgery. Past Psychological History: Anxiety, Depression Smoking Status: Current every day smoker Past Alcohol Use History: None Reported Past Drug Use History: Heroin, Methamphetamine - Past Family History Father Family Medical History: Coronary Artery Disease (CAD) Additional Family Medical History / Comment(s): Father is . Mother Family Medical History: Rheumatoid Arthritis (RA) Additional Family Medical History / Comment(s): Mother is . General Exam - General Exam Comments Initial Comments: Constitutional: NAD, AOX3, Pt has pleasant affect. HEENT: NC/AT, trachea midline, neck supple, no lymphadenopathy. Posterior pharynx non erythematous, without exudates. External ears appear normal, without discharge. Mucous membranes moist. Eyes PERRLA, EOM intact. There is no scleral icterus. No pallor noted. Cardiopulmonary: RRR, no murmurs, rubs or gallops, no JVD noted. Lungs CTAB in anterior and posterior peña. No peripheral edema. Abdominal exam: Abdomen soft and non-distended. Abdomen non-tender to palpation in all 4 quadrants. Bowel sounds active in LLQ. No hepatosplenomegaly. No ecchymosis Neuro: CN II-XII grossly intact. No nuchal rigidity. No raccon eyes, no diggs sign, no hemotympanum. No cervical spinal tenderness. MSK: 4 x 4 centimeter abscess left forearm which is actively draining significant erythema and streaking extending up the forearm. Radial pulse +2. Neurovascularly intact. Limitations: no limitations Course Vital Signs 07/15/20 20:56 Temperature 99 F Pulse Rate 113 H Respiratory 20 Rate Blood Pressure 119/78 O2 Sat by Pulse 98 Oximetry Medical Decision Making - Medical Decision Making 34-year-old male patient IV drug user presents to ED for evaluation of abscess to left forearm. Ongoing for last few days. Physical exam doesn't display abscess which is actively draining with significant cellulitis streaking up arm. Patient admitted for IV antibiotics. Culture obtained. Patient be admitted for IV antibiotics and surgical consult. Case discussed with Dr. Ellington. - Lab Data Result diagrams: 07/15/20 21:35 07/15/20 21:35 Lab Results 07/15/20 07/15/20 07/15/20 Range/Units 21:33 21:35 21:35 WBC 8.5 (3.8-10.6) k/uL RBC 4.71 (4.30-5.90) m/uL Hgb 13.1 (13.0-17.5) gm/dL Hct 39.5 (39.0-53.0) % MCV 83.9 (80.0-100.0) fL MCH 27.8 (25.0-35.0) pg MCHC 33.2 (31.0-37.0) g/dL RDW 13.3 (11.5-15.5) % Plt Count 206 (150-450) k/uL Neutrophils % 69 % Lymphocytes % 21 % Monocytes % 5 % Eosinophils % 2 % Basophils % 1 % Neutrophils # 5.9 (1.3-7.7) k/uL Lymphocytes # 1.8 (1.0-4.8) k/uL Monocytes # 0.5 (0-1.0) k/uL Eosinophils # 0.2 (0-0.7) k/uL Basophils # 0.1 (0-0.2) k/uL PT 10.3 (9.0-12.0) sec INR 1.0 (<1.2) APTT 23.8 (22.0-30.0) sec Sodium (137-145) mmol/L Potassium (3.5-5.1) mmol/L Chloride (98-107) mmol/L Carbon Dioxide (22-30) mmol/L Anion Gap mmol/L BUN (9-20) mg/dL Creatinine (0.66-1.25) mg/dL Est GFR (CKD-EPI)AfAm (>60 ml/min/1.73 sqM) Est GFR (CKD-EPI)NonAf (>60 ml/min/1.73 sqM) Glucose (74-99) mg/dL Plasma Lactic Acid Sohail (0.7-2.0) mmol/L Calcium (8.4-10.2) mg/dL Total Bilirubin (0.2-1.3) mg/dL AST (17-59) U/L ALT (4-49) U/L Alkaline Phosphatase (38-126) U/L Troponin I <0.012 (0.000-0.034) ng/mL Total Protein (6.3-8.2) g/dL Albumin (3.5-5.0) g/dL 07/15/20 07/15/20 Range/Units 21:35 21:35 WBC (3.8-10.6) k/uL RBC (4.30-5.90) m/uL Hgb (13.0-17.5) gm/dL Hct (39.0-53.0) % MCV (80.0-100.0) fL MCH (25.0-35.0) pg MCHC (31.0-37.0) g/dL RDW (11.5-15.5) % Plt Count (150-450) k/uL Neutrophils % % Lymphocytes % % Monocytes % % Eosinophils % % Basophils % % Neutrophils # (1.3-7.7) k/uL Lymphocytes # (1.0-4.8) k/uL Monocytes # (0-1.0) k/uL Eosinophils # (0-0.7) k/uL Basophils # (0-0.2) k/uL PT (9.0-12.0) sec INR (<1.2) APTT (22.0-30.0) sec Sodium 135 L (137-145) mmol/L Potassium 3.6 (3.5-5.1) mmol/L Chloride 103 (98-107) mmol/L Carbon Dioxide 24 (22-30) mmol/L Anion Gap 8 mmol/L BUN 8 L (9-20) mg/dL Creatinine 0.63 L (0.66-1.25) mg/dL Est GFR (CKD-EPI)AfAm >90 (>60 ml/min/1.73 sqM) Est GFR (CKD-EPI)NonAf >90 (>60 ml/min/1.73 sqM) Glucose 111 H (74-99) mg/dL Plasma Lactic Acid Sohail 1.7 (0.7-2.0) mmol/L Calcium 9.2 (8.4-10.2) mg/dL Total Bilirubin 0.5 (0.2-1.3) mg/dL AST 121 H (17-59) U/L ALT 129 H (4-49) U/L Alkaline Phosphatase 53 (38-126) U/L Troponin I (0.000-0.034) ng/mL Total Protein 7.6 (6.3-8.2) g/dL Albumin 3.8 (3.5-5.0) g/dL Disposition Clinical Impression: Abscess Disposition: ADMITTED IP TO THIS HOSP Condition: Serious Is patient prescribed a controlled substance at d/c from ED?: No
[2020-07-16 00:14] LABS: Appearance,Urine Clear (Clear); Bilirubin,Urine Negative (Negative); Blood,Urine Negative (Negative); Color,Urine Yellow; Glucose,Urine (UA) Negative (Negative); Ketones,Urine Negative (Negative); Leukocyte Esterase,Urine Negative (Negative); Nitrite,Urine Negative (Negative); Protein,Urine Negative (Negative); Urobilinogen,Urine <2.0 mg/dL (<2.0)
[2020-07-16] MEDS: SODIUM CHLORIDE 0.9% 500 ML 500 ML IV SCH (00:18)
[2020-07-16] MEDS ORDERED: ACETAMINOPHEN TAB 325 MG TAB PO PRN (00:19)
[2020-07-16] MEDS ORDERED: IBUPROFEN 600 MG TAB PO PRN (00:19)
--- NOTE | 2020-07-16 00:39 | P.HPIM ---
History of Present Illness H&P Date: 07/15/20 Chief Complaint: left forearm pain and swelling 34 year old male with depression , anxiety , hepatitis C patient comes in with 2 days history of progressive swelling and erythema over his left forearm , he claims that he was too drunk to remember what happened, and he thinks it might be a burn. however, ER noted that he admitted to injecting meth patient denies fever, or chills, but reports local pain over the swelling. he denies any chest pain or trouble breathing denies any nausea or vomiting denies abd pain he claims that he does not take any medications at home he has multiple bleeidng papules over his shoulder and back, claims that it was due to flea bites at a friend house blood work showed no leukocytosis , and chronically elevated liver enzymes Review of Systems Pertinent positives as noted in HPI. All other systems were reviewed and are negative Past Medical History Past Medical History: GERD/Reflux, Hypertension, Liver Disease Additional Past Medical History / Comment(s): Hepatitis C, DDD, back pain, bilateral carpel tunnel syndrome. He reports that he has heart disease that was found when he had kidney problems but he denies having a stress test or cardiac catheterization. History of Any Multi-Drug Resistant Organisms: None Reported MDRO Source:: unknown Past Surgical History: No Surgical Hx Reported Past Anesthesia/Blood Transfusion Reactions: Unable to Obtain Additional Past Anesthesia/Blood Transfusion Reaction / Comment(s): Pt states he has never had surgery. Past Psychological History: Anxiety, Depression Additional Psychological History / Comment(s): Homeless, Patient stated he has a history of being suicial. State no suicidal ideations currently 07/15/20 [id number] Smoking Status: Current every day smoker Past Alcohol Use History: None Reported Additional Past Alcohol Use History / Comment(s): Pt started smoking in 1993 and smokes 0.5-1ppd. and marijuana Past Drug Use History: Heroin, Methamphetamine Additional Drug Use History / Comment(s): Pt states he uses marijuana occasionally. Past use heroin, meth, iv drug use. Denies currently - Past Family History Father Family Medical History: Coronary Artery Disease (CAD) Additional Family Medical History / Comment(s): Father is . Mother Family Medical History: Rheumatoid Arthritis (RA) Additional Family Medical History / Comment(s): Mother is . Medications and Allergies Home Medications Medication Instructions Recorded Confirmed Type Acetaminophen Tab [Tylenol] 650 mg PO Q4HR PRN tab 05/20/20 07/15/20 Rx Benztropine Mesylate [Cogentin] 1 mg PO BID 30 Days tab 05/20/20 07/15/20 Rx Ibuprofen [Motrin] 600 mg PO Q8H PRN tab 05/20/20 07/15/20 Rx Nicotine 14Mg/24Hr Patch [Habitrol] 1 patch TRANSDERM DAILY 14 Days 05/20/20 07/15/20 Rx patch Paliperidone IM [Invega Sustenna] 156 mg IM ONCE #1 syr 05/20/20 07/15/20 Rx Paliperidone [Invega] 3 mg PO BID 4 Days tab.er.24 05/20/20 07/15/20 Rx QUEtiapine [SEROquel] 200 mg PO TID 30 Days tab 05/20/20 07/15/20 Rx Venlafaxine HCl ER [Effexor XR] 225 mg PO DAILY 30 Days cap.er.24h 05/20/20 07/15/20 Rx hydrOXYzine pamoate [Vistaril] 25 mg PO BID PRN 30 Days cap 05/20/20 07/15/20 Rx Cephalexin [Keflex] 500 mg PO Q6HR #40 cap 06/09/20 07/15/20 Rx Sulfamethox-Tmp 800-160Mg [Bactrim 1 tab PO Q12HR 06/11/20 07/15/20 History Ds] Allergies Allergy/AdvReac Type Severity Reaction Status Date / Time No Known Allergies Allergy Verified 07/15/20 22:06 Physical Exam Vitals: Vital Signs Temp Pulse Pulse Resp BP BP Pulse Ox 07/15/20 23:45 99.2 F 87 16 106/51 97 07/15/20 23:07 97.8 F 96 16 99/52 100 07/15/20 20:56 99 F 113 H 20 119/78 98 Intake and Output 07/15/20 07/15/20 07/16/20 14:59 22:59 06:59 Output Total 400 Balance -400 Output: Urine 400 Other: Weight 83.915 kg 83.915 kg Constitutional: No acute distress, conversant, pleasant Eyes: Anicteric sclerae, moist conjunctiva, Pupils equal round reactive to light ENMT: NC/AT Oropharynx clear, no erythema, or exudates Neck: Supple, FROM, no masses, or JVD No carotid bruits No thyromegaly Lungs: Clear to auscultation Clear to percussion Normal respiratory effort, no accessory muscle use Cardiovascular: Heart regular in rate and rhythm, No murmurs, gallops, or rubs No peripheral edema Abdominal: Soft Nontender, no guarding, rebound or rigidity Abdomen moving with respiration Normoactive bowel sounds No hepatomegaly, No splenomegaly No palpable mass No abdominal wall hernia noted Skin: Normal temperature, tone, texture, turgor numerous papular lesions over his back and shoulder nodular swelling over his left forearm, with no active drainage at this time, surrounded by erythema and induration . nodule measures 3Xx , area of erythema extends to the distal forearm and proximally to the elbow, warm to the touch and tender to palpation Extremities: no pain with active range of motion of elbow, wrist, and hand. No digital cyanosis No clubbing Pedal pulses intact and symmetrical Radial pulses intact and symmetrical No calf tenderness Psychiatric: Alert and oriented to person, place and time Appropriate affect fair judgement Neuro Muscles Strength 5/5 in all 4 extremities Sensation to light touch grossly present throughout Cranial nerves II-XII grossly intact No focal sensory deficits Lymphatics: no palpable cervical or supraclavicular , or inguinal lymph nodes Results CBC & Chem 7: 07/15/20 21:35 07/15/20 21:35 Labs: Abnormal Lab Results - Last 24 Hours (Table) 07/15/20 Range/Units 21:35 Sodium 135 L (137-145) mmol/L BUN 8 L (9-20) mg/dL Creatinine 0.63 L (0.66-1.25) mg/dL Glucose 111 H (74-99) mg/dL AST 121 H (17-59) U/L ALT 129 H (4-49) U/L Thrombosis Risk Factor Assmnt - Choose All That Apply Any of the Below Risk Factors Present?: Yes Each Factor Represents 1 point: Obesity (BMI >25) Other Risk Factors: No Other congenital or acquired thrombophilia - If yes, enter type in comment: No Thrombosis Risk Factor Assessment Total Risk Factor Score: 1 Thrombosis Risk Factor Assessment Level: Low Risk Assessment and Plan Assessment: cellulitis with abscess formation over left forearm, with suspected IVDA follow up culture empiric antibiotics with tenishao and zokathie general surgery consult for I &D pain control opioids IVF hydration NPO after midnight chronic conditions hep c , elevated liver enzymes, chronic anxiety and depression patient claims he is not taking any meds at home CODE STATUS:full code DVT prophylaxis: mechanical Discussed with: Patient, ER, RN Anticipated length of stay > than [address]: home A total of 75 minutes was spent on the care of this complex patient more than 50% of the time was spent in counseling and care coordination.
[2020-07-16] MEDS: SODIUM CHLORIDE 0.9% 1,000 ML IV SCH ×3 (05:27→23:47)
[2020-07-16] MEDS: PIPERACILLIN-TAZOBACTAM 3.375 GM in SODIUM CHLORIDE 0.9% 100 ML IVPB SCH ×2 (05:31→13:51)
[2020-07-16 07:51] VITALS: RESP 16
[2020-07-16] MEDS: VANCOMYCIN 1,500 MG in SODIUM CHLORIDE 0.9% 250 ML IVPB SCH ×3 (07:51→23:13)
[2020-07-16] MEDS ORDERED: NICOTINE 14MG/24HR PATCH TRANSDERM SCH (09:00)
[2020-07-16] MEDS: MORPHINE SULFATE 4 MG/ML SYRINGE IVP PRN ×2 (13:57→18:09)
--- NOTE | 2020-07-16 14:38 | P.GSCN ---
<Diya Pierce - Last Filed: 07/16/20 14:22> History of Present Illness Consult date: 07/16/20 History of present illness: CHIEF COMPLAINT: Left forearm abscess HISTORY OF PRESENT ILLNESS: This is a 34-year-old male with a known history of IV drug use, hepatitis C, hypertension, anxiety and depression. He presented to the emergency room with complaints of swelling and pain in the left forearm with evidence of abscess. Patient reports that he thought he may have been bit by a bug. He did report drainage from the abscess at home. And then it has stopped draining. He denies any fever, chills or sweats. Denies any nausea or vomiting. He denies any IV drug use in that arm. He denies having had abscesses in the past. PAST MEDICAL HISTORY: See list. PAST SURGICAL HISTORY: See list. MEDICATIONS: See list. ALLERGIES: See list. SOCIAL HISTORY: No illicit drug use. REVIEW OF SYSTEMS: CONSTITUTIONAL: Denies fever or chills. HEENT: Denies blurred vision, vision changes, or eye pain. Denies hemoptysis ENDOCRINE: Denies heat or cold intolerance. CARDIOVASCULAR: Denies chest pain or pressure. RESPIRATORY: No shortness of breath. GASTROINTESTINAL: Denies abdominal pain. Denies nausea or vomiting. NEURO: Denies history of seizures. PSYCH: No depression or suicidal ideation presently. He's had previous suicide attempt HEMATOLOGIC: Denies bleeding disorders. LYMPHATIC: The patient denies any lumps and bumps around the neck. GENITOURINARY: Denies any blood in urine or increased urinary frequency. MUSCULOSKELETAL: Denies myalgias. Denies joint swelling. Denies decreased range of motion beyond patients baseline. SKIN: Denies pruitis. Denies rash. PHYSICAL EXAM: VITAL SIGNS: Reviewed GENERAL: Well-developed in no acute distress. HEENT: No sclera icterus. Extraocular movements grossly intact. Moist buccal mucosa. Head is atraumatic, normocephalic. Hears conversational speech. No nasal drainage. NECK: Supple without lymphadenopathy. CHEST: Non-labored respirations and equal bilateral excursions. CARDIOVASCULAR: Regular rate with regular rhythm. Palpable 2+ radial pulses. ABDOMEN: Soft. Nondistended. Nontender MUSCULOSKELETAL: No clubbing or cyanosis. Left volar area of the forearm is a 5 x 4 cm raised firm circular area that is healing process. Old scar from past suicide attempt NEUROLOGIC: No focal or lateralizing signs. Cranial nerves II through XII grossly intact. PSYCH: Appropriate affect. Alert and oriented to person, place and time. SKIN: Well perfused. Good skin turgor. LABORATORY DATA: WBC 8.5 AST 121 ALT 129 IMAGING: ASSESSMENT: 1. Left volar forearm abscess with spontaneous drainage 2. History of IV drug use 3. History of hepatitis C 4. History of anxiety and depression PLAN: -Recommend conservative management -Apply warm compress around the clock -Continue IV antibiotics -If symptoms continued to worsen then will proceed with further imaging or intervention -Start regular diet Thank you for this consultation. We'll continue to follow along during this patient's hospitalization. Physician Classification Counselor note has been reviewed by physician. Signing provider agrees with the documented findings, assessment, and plan of care. Past Medical History Past Medical History: GERD/Reflux, Hypertension, Liver Disease Additional Past Medical History / Comment(s): Hepatitis C, DDD, back pain, bilateral carpel tunnel syndrome. He reports that he has heart disease that was found when he had kidney problems but he denies having a stress test or cardiac catheterization. History of Any Multi-Drug Resistant Organisms: None Reported MDRO Source:: unknown Past Surgical History: No Surgical Hx Reported Past Anesthesia/Blood Transfusion Reactions: Unable to Obtain Additional Past Anesthesia/Blood Transfusion Reaction / Comm: Pt states he has never had surgery. Past Psychological History: Anxiety, Depression Additional Psychological History / Comment(s): Homeless, Patient stated he has a history of being suicial. State no suicidal ideations currently 07/15/20 9514 Smoking Status: Current every day smoker Past Alcohol Use History: None Reported Additional Past Alcohol Use History / Comment(s): Pt started smoking in 1993 and smokes 0.5-1ppd. and marijuana Past Drug Use History: Heroin, Methamphetamine Additional Drug Use History / Comment(s): Pt states he uses marijuana occasionally. Past use heroin, meth, iv drug use. Denies currently - Past Family History Father Family Medical History: Coronary Artery Disease (CAD) Additional Family Medical History / Comment(s): Father is . Mother Family Medical History: Rheumatoid Arthritis (RA) Additional Family Medical History / Comment(s): Mother is . Medications and Allergies Home Medications Medication Instructions Recorded Confirmed Type Acetaminophen Tab [Tylenol] 650 mg PO Q4HR PRN tab 05/20/20 07/15/20 Rx Benztropine Mesylate [Cogentin] 1 mg PO BID 30 Days tab 05/20/20 07/15/20 Rx Ibuprofen [Motrin] 600 mg PO Q8H PRN tab 05/20/20 07/15/20 Rx Nicotine 14Mg/24Hr Patch [Habitrol] 1 patch TRANSDERM DAILY 14 Days 05/20/20 07/15/20 Rx patch Paliperidone IM [Invega Sustenna] 156 mg IM ONCE #1 syr 05/20/20 07/15/20 Rx Paliperidone [Invega] 3 mg PO BID 4 Days tab.er.24 05/20/20 07/15/20 Rx QUEtiapine [SEROquel] 200 mg PO TID 30 Days tab 05/20/20 07/15/20 Rx Venlafaxine HCl ER [Effexor XR] 225 mg PO DAILY 30 Days cap.er.24h 05/20/20 07/15/20 Rx hydrOXYzine pamoate [Vistaril] 25 mg PO BID PRN 30 Days cap 05/20/20 07/15/20 Rx Cephalexin [Keflex] 500 mg PO Q6HR #40 cap 06/09/20 07/15/20 Rx Sulfamethox-Tmp 800-160Mg [Bactrim 1 tab PO Q12HR 06/11/20 07/15/20 History Ds] Allergies Allergy/AdvReac Type Severity Reaction Status Date / Time No Known Allergies Allergy Verified 07/15/20 22:06 Surgical - Exam Vital Signs Temp Pulse Resp BP Pulse Ox 99 F 113 H 20 119/78 98 07/15/20 20:56 07/15/20 20:56 07/15/20 20:56 07/15/20 20:56 07/15/20 20:56 Results - Labs 07/15/20 21:35 07/15/20 21:35 Abnormal Lab Results - Last 24 Hours (Table) 07/15/20 Range/Units 21:35 Sodium 135 L (137-145) mmol/L BUN 8 L (9-20) mg/dL Creatinine 0.63 L (0.66-1.25) mg/dL Glucose 111 H (74-99) mg/dL AST 121 H (17-59) U/L ALT 129 H (4-49) U/L Microbiology - Last 24 Hours (Table) 07/15/20 23:09 Wound Culture - Preliminary Arm - Left Diabetes panel 07/15/20 Range/Units 21:35 Sodium 135 L (137-145) mmol/L Potassium 3.6 (3.5-5.1) mmol/L Chloride 103 (98-107) mmol/L Carbon Dioxide 24 (22-30) mmol/L BUN 8 L (9-20) mg/dL Creatinine 0.63 L (0.66-1.25) mg/dL Glucose 111 H (74-99) mg/dL Calcium 9.2 (8.4-10.2) mg/dL AST 121 H (17-59) U/L ALT 129 H (4-49) U/L Alkaline Phosphatase 53 (38-126) U/L Total Protein 7.6 (6.3-8.2) g/dL Albumin 3.8 (3.5-5.0) g/dL Calcium panel 07/15/20 Range/Units 21:35 Calcium 9.2 (8.4-10.2) mg/dL Albumin 3.8 (3.5-5.0) g/dL Pituitary panel 07/15/20 Range/Units 21:35 Sodium 135 L (137-145) mmol/L Potassium 3.6 (3.5-5.1) mmol/L Chloride 103 (98-107) mmol/L Carbon Dioxide 24 (22-30) mmol/L BUN 8 L (9-20) mg/dL Creatinine 0.63 L (0.66-1.25) mg/dL Glucose 111 H (74-99) mg/dL Calcium 9.2 (8.4-10.2) mg/dL Adrenal panel 07/15/20 Range/Units 21:35 Sodium 135 L (137-145) mmol/L Potassium 3.6 (3.5-5.1) mmol/L Chloride 103 (98-107) mmol/L Carbon Dioxide 24 (22-30) mmol/L BUN 8 L (9-20) mg/dL Creatinine 0.63 L (0.66-1.25) mg/dL Glucose 111 H (74-99) mg/dL Calcium 9.2 (8.4-10.2) mg/dL Total Bilirubin 0.5 (0.2-1.3) mg/dL AST 121 H (17-59) U/L ALT 129 H (4-49) U/L Alkaline Phosphatase 53 (38-126) U/L Total Protein 7.6 (6.3-8.2) g/dL Albumin 3.8 (3.5-5.0) g/dL <Samantha Thurman N - Last Filed: 07/17/20 11:41> History of Present Illness History of present illness: Patient seen and evaluated above. Please see additional documentation below. HISTORY OF PRESENT ILLNESS: The patient 34-year-old male with pre-existing history of illicit drug use including previous suicidal attempts who reports at least 1-2 day history of swelling redness and pain of the left volar aspect of the forearm. No reports of generalized fevers or chills. He had no leukocytosis on presentation. Patient was admitted secondary to his left forearm abscess. Since admission, he reports improvement where he has moderate drainage from the abscess. He does report tenderness along the area. No reports of previous abscesses along the forearm. PAST MEDICAL HISTORY: See list and reviewed PAST SURGICAL HISTORY: See list and reviewed MEDICATIONS: See list and reviewed ALLERGIES: See list and reviewed SOCIAL HISTORY: Pre-existing history of IV drug abuse including heroin, marijua na, tobacco abuse. History of methamphetamine use REVIEW OF ORGAN SYSTEMS: CONSTITUTIONAL: No fevers or chills. No recent weight loss. EYES: Denies any trouble with vision. No glasses. HEENT: No difficulties with hearing. No nosebleeds. No difficulty swallowing. RESPIRATORY: Denies pneumonia. Denies any troubles with breathing or dyspnea on exertion. CARDIOVASCULAR: Denies any chest pain, palpitations, or recent heart attacks. GASTROINTESTINAL: Has gastroesophageal reflux disease. History of hepatitis. GENITOURINARY: Denies any blood in urine or increased urinary frequency. NEUROLOGICAL: Denies any numbness or tingling along the distal extremities. No seizure disorders or headaches. MUSCULOSKELETAL: Has back pain, stiffness or joint arthritis. SKIN: No current skin cancer. No rash. PSYCHIATRIC: Has depressive disorder with past suicidal ideation. Denies present suicidal ideation. Has anxiety. ENDOCRINE: Denies current thyroid disorders. Denies any blood sugar glucose intolerance. HEME/LYMPHATIC: Denies any lumps and bumps around the neck. No recent deep venous thrombosis. ALLERGY/IMMUNOLOGY: No immunoglobulin therapy. No immune deficiencies. PHYSICAL EXAM: VITALS: Reviewed CONSTITUTIONAL: Well developed and in no acute distress. EYES: Conjuctivae without sclera icterus. Pupils are equally round and reactive to light. Extraocular movements grossly intact. HEAD, EARS, NOSE, THROAT: Moist buccal mucosa. Head is atraumatic, normocephalic. Hears conversational speech. No nasal drainage. NECK: No JV distention. No thyroidomegaly. RESPIRATORY: Non-labored respirations and equal bilateral excursions. No gross wheezes. CARDIOVASCULAR: Regular rate and rhythm. Palpable 2+ radial pulses. ABDOMEN: Soft. Non-tender. Nondistended. LYMPH: No neck lymphadenopathy. MUSCULOSKELETAL: Left volar aspect erythematous 5 x 4 cm with spontaneous purulent drainage. Range of motion and fingers and hands within normal limits. Dressing change at bedside SKIN: Warm and well perfused with good skin turgor. NEUROLOGIC: Cranial nerves II through XII grossly intact. Sensation upper and extremities intact. No focal or lateralizing signs. PSYCH: Appropriate affect. Alert and oriented to person, place and time. Displays appropriate insight. CLINCAL LABS: Reviewed. WBC normal at 8.5 ASSESSMENT: 1. Left forearm abscess, 5 x 4, subcutaneous PLAN: 1. Recommend warm compress to facilitate drainage 2. As he has moderate drainage from the forearm and improvement of presenting symptoms, may start diet. No surgical intervention needed at this time. 3. Continue IV antibiotics tailored to growth of cultures Surgical - Exam Vital Signs Temp Pulse Resp BP Pulse Ox 99 F 113 H 20 119/78 98 07/15/20 20:56 07/15/20 20:56 07/15/20 20:56 07/15/20 20:56 07/15/20 20:56 Results - Labs 07/15/20 21:35 07/15/20 21:35 Microbiology - Last 24 Hours (Table) 07/15/20 23:09 Gram Stain - Preliminary Arm - Left Wound Culture - Preliminary Gram Neg Bacilli 07/15/20 21:35 Blood Culture - Preliminary Blood No Growth after 24 hours Assessment and Plan (1) Abscess of left forearm Status: Acute Code(s): L02.414 - CUTANEOUS ABSCESS OF LEFT UPPER LIMB SNOMED Code(s): 70299084260316083
--- NOTE | 2020-07-16 15:54 | P.PN ---
Subjective Progress Note Date: 07/16/20 Patient is doing fairly well today. He was sleepy when I saw him. He does not have any complaints this morning. Objective - Vital Signs Vital signs: Vital Signs Temp 98.4 F 07/16/20 15:00 Pulse 65 07/16/20 15:00 Resp 16 07/16/20 15:00 BP 131/79 07/16/20 15:00 Pulse Ox 97 07/16/20 15:00 Intake & Output 07/15/20 07/16/20 07/16/20 18:59 06:59 18:59 Intake Total 850 1050 Output Total 400 400 Balance 450 650 Weight 83.915 kg Intake: Intake, IV Titration 850 1050 Amount Piperacillin-Tazobactam 3 100 .375 gm In Sodium Chloride 0.9% 100 ml @ 200 mls/hr IVPB ONCE [facility] Rx#:[id number] Piperacillin-Tazobactam 3 100 .375 gm In Sodium Chloride 0.9% 100 ml @ 25 mls/hr IVPB Q8H [facility] Rx#: [id number] Sodium Chloride 0.9% 1, 700 000 ml @ 130 mls/hr IV . Q7H42M [facility] Rx#:[id number] Sodium Chloride 0.9% 500 500 ml 500 ml @ 1000 mls/hr IV Q35M [facility] Rx#:[id number] Vancomycin 1,500 mg In 250 Sodium Chloride 0.9% 250 ml @ 125 mls/hr IVPB ONCE STA Rx#:[id number] Vancomycin 1,500 mg In 250 Sodium Chloride 0.9% 250 ml @ 125 mls/hr IVPB Q8H [facility] Rx#:[id number] Output: Urine 400 400 Other: Voiding Method Toilet Toilet Urinal # Voids 2 - Exam General: The patient is awake and alert, in no distress Eye: there is normal conjunctiva bilaterally. Neck: The neck is supple, there is no JVD. Cardiovascular: Normal S1-S2, no S3-S4, no murmurs. Respiratory: Lungs clear to auscultation bilaterally Gastrointestinal: Abdomen is soft, nontender Musculoskeletal: There is no pedal edema. Neurological:. Speech is normal. Skin: Skin is warm and dry . There is area of erythema approximately 4 x 4 centimeters involving the plantar aspect of the forearm above the wrist. No drainage noted at the time of my exam. - Labs CBC & Chem 7: 07/15/20 21:35 07/15/20 21:35 Labs: Abnormal Lab Results - Last 24 Hours (Table) 07/15/20 Range/Units 21:35 Sodium 135 L (137-145) mmol/L BUN 8 L (9-20) mg/dL Creatinine 0.63 L (0.66-1.25) mg/dL Glucose 111 H (74-99) mg/dL AST 121 H (17-59) U/L ALT 129 H (4-49) U/L Microbiology - Last 24 Hours (Table) 07/15/20 23:09 Wound Culture - Preliminary Arm - Left Assessment and Plan Assessment: cellulitis with concern about abscess formation over left forearm, with suspected IVDA: Seen and evaluated by general surgery. No abscess to be drained at this time. Continue IV antibiotic with vancomycin. Discontinue Zosyn. Awaiting culture results. Follow clinical course in the morning. chronic conditions hep c , elevated liver enzymes, chronic anxiety and depression patient claims he is not taking any meds at home Anticipate discharge home within the next day or 2
[2020-07-17 05:33] VITALS: BP 114/64; PULSE 60; TEMP 98.3
[2020-07-17] MEDS: MORPHINE SULFATE 4 MG/ML SYRINGE IVP PRN (05:39)
[2020-07-17] MEDS: SODIUM CHLORIDE 0.9% 1,000 ML IV SCH (05:47)
[2020-07-17] MEDS ORDERED: VANCOMYCIN TROUGH DUE 1 EACH MISC MISCELLANE ONE (06:00)
--- NOTE | 2020-07-17 07:54 | P.DS ---
Providers Date of admission: 07/15/20 22:09 Expected date of discharge: 07/17/20 Attending physician: Maday Blair MD Consults: 07/15/20 23:39 Consult Physician Stat Consulting Provider: Samantha Thurman Consult Reason/Comments: forearm abscess IVDA Do you want consulting provider notified?: Yes, Notify in am Primary care physician: Stated None Hospital Course: patient left the hospital AGAINST MEDICAL ADVICE in the evening during nighttime physician shift. Patient was not seen by me prior to his departure. Below is a summary of his hospital stay This is a 34-year-old male who presented to the ER with left arm redness and swelling and was placed on observation for further management of his medical problems noted below cellulitis with concern about abscess formation over left forearm, with suspected IVDA: Seen and evaluated by general surgery. No abscess to be drained at this time. Continue IV antibiotic with vancomycin. Discontinue Zosyn. Awaiting culture results. Follow clinical course in the morning. chronic conditions hep c , elevated liver enzymes, chronic anxiety and depression patient claims he is not taking any meds at home Patient Condition at Discharge: Poor Plan - Discharge Summary New Discharge Prescriptions: No Action Benztropine Mesylate [Cogentin] 1 mg PO BID 30 Days tab Venlafaxine HCl ER [Effexor XR] 225 mg PO DAILY 30 Days cap.er.24h Nicotine 14Mg/24Hr Patch [Habitrol] 1 patch TRANSDERM DAILY 14 Days patch Paliperidone [Invega] 3 mg PO BID 4 Days tab.er.24 Paliperidone IM [Invega Sustenna] 156 mg IM ONCE #1 syr Ibuprofen [Motrin] 600 mg PO Q8H PRN tab PRN Reason: Moderate To Severe Pain QUEtiapine [SEROquel] 200 mg PO TID 30 Days tab Acetaminophen Tab [Tylenol] 650 mg PO Q4HR PRN tab PRN Reason: Pain/Discomfort hydrOXYzine pamoate [Vistaril] 25 mg PO BID PRN 30 Days cap PRN Reason: Anxiety Cephalexin [Keflex] 500 mg PO Q6HR #40 cap Sulfamethox-Tmp 800-160Mg [Bactrim Ds] 1 tab PO Q12HR Discharge Medication List Acetaminophen Tab [Tylenol] 650 mg PO Q4HR PRN tab 05/20/20 [Rx] Benztropine Mesylate [Cogentin] 1 mg PO BID 30 Days tab 05/20/20 [Rx] Ibuprofen [Motrin] 600 mg PO Q8H PRN tab 05/20/20 [Rx] Nicotine 14Mg/24Hr Patch [Habitrol] 1 patch TRANSDERM DAILY 14 Days patch 05/20/20 [Rx] Paliperidone IM [Invega Sustenna] 156 mg IM ONCE #1 syr 05/20/20 [Rx] Paliperidone [Invega] 3 mg PO BID 4 Days tab.er.24 05/20/20 [Rx] QUEtiapine [SEROquel] 200 mg PO TID 30 Days tab 05/20/20 [Rx] Venlafaxine HCl ER [Effexor XR] 225 mg PO DAILY 30 Days cap.er.24h 05/20/20 [Rx] hydrOXYzine pamoate [Vistaril] 25 mg PO BID PRN 30 Days cap 05/20/20 [Rx] Cephalexin [Keflex] 500 mg PO Q6HR #40 cap 06/09/20 [Rx] Sulfamethox-Tmp 800-160Mg [Bactrim Ds] 1 tab PO Q12HR 06/11/20 [History] Follow up Appointment(s)/Referral(s): None,Stated [Primary Care Provider] - 1 Week Discharge Disposition: Left Against Medical Advice
== END 2020-07-17 06:05 | disposition left against medical advice (07) ==
LOC: EC 20:52 → 1SOBS 22:09
PROVIDERS: ADMIT Internal Medicine; ATTEND Internal Medicine
DX: L02.414 Cutaneous abscess of left upper limb (principal); L03.114 Cellulitis of left upper limb; F15.10 Other stimulant abuse, uncomplicated; I10 Essential (primary) hypertension; Z53.29 Procedure and treatment not carried out because of patient's decision for other reasons; K21.9 Gastro-esophageal reflux disease without esophagitis; B19.20 Unspecified viral hepatitis C without hepatic coma; G56.00 Carpal tunnel syndrome, unspecified upper limb; M54.9 Dorsalgia, unspecified; F41.9 Anxiety disorder, unspecified; F32.9 Major depressive disorder, single episode, unspecified; F17.200 Nicotine dependence, unspecified, uncomplicated; Z82.49 Family history of ischemic heart disease and other diseases of the circulatory system; Z82.61 Family history of arthritis; Z59.0 Homelessness; Z79.899 Other long term (current) drug therapy
CPT/HCPCS: 96361; 96366 ×3; 96368 ×2; 96376 ×2; 90471; 96365; 96375; 99285; 36415; 93005; 80053; 83605; 84484; 85025; 85610; 85730; 81003; 87040; 87070; 87205; 87077; 87186; 90715; G0378 ×3; S4990; J2543 ×2; J3370 ×2; J2270 ×3

== ENCOUNTER 2020-10-01 22:57 | Emergency (ER) | payer OTHER ==
[2020-10-01 23:05] VITALS: TEMP 97.5
--- NOTE | 2020-10-01 23:07 | ED ---
Overdose HPI - General Chief Complaint: Overdose Stated Complaint: Medical clearance Time Seen by Provider: 10/01/20 23:06 Source: patient, EMS Mode of arrival: EMS Limitations: physical limitation - History of Present Illness Initial Comments: this patient is a 34-year-old man brought by law enforcement to have a clearance prior to going to the longterm. There was concern at the patient may have overdosed. The patient reportedly had admitted heroin use and then had become very somnolent. He is brought here for evaluation. When I interviewed the pat ient, he denies taking an overdose. He denies any suicidal ideation. He does admit to using substances. Also had some alcohol. Patient denies complaints. MD Complaint: other -: hour(s) Context: Accidental Overdose: wanted to get high Treatments Prior to Arrival: none - Related Data Home Medications Medication Instructions Recorded Confirmed Sulfamethox-Tmp 800-160Mg [Bactrim 1 tab PO Q12HR 06/11/20 07/15/20 Ds] Previous Rx's Medication Instructions Recorded Acetaminophen Tab [Tylenol] 650 mg PO Q4HR PRN tab 05/20/20 Benztropine Mesylate [Cogentin] 1 mg PO BID 30 Days tab 05/20/20 Ibuprofen [Motrin] 600 mg PO Q8H PRN tab 05/20/20 Nicotine 14Mg/24Hr Patch [Habitrol] 1 patch TRANSDERM DAILY 14 Days 05/20/20 patch Paliperidone IM [Invega Sustenna] 156 mg IM ONCE #1 syr 05/20/20 Paliperidone [Invega] 3 mg PO BID 4 Days tab.er.24 05/20/20 QUEtiapine [SEROquel] 200 mg PO TID 30 Days tab 05/20/20 Venlafaxine HCl ER [Effexor XR] 225 mg PO DAILY 30 Days cap.er.24h 05/20/20 hydrOXYzine pamoate [Vistaril] 25 mg PO BID PRN 30 Days cap 05/20/20 Cephalexin [Keflex] 500 mg PO Q6HR #40 cap 06/09/20 Allergies Allergy/AdvReac Type Severity Reaction Status Date / Time No Known Allergies Allergy Verified 07/15/20 22:06 Review of Systems ROS Statement: Those systems with pertinent positive or pertinent negative responses have been documented in the HPI. ROS Other: All systems not noted in ROS Statement are negative. Constitutional: Denies: fever Respiratory: Denies: cough, dyspnea Cardiovascular: Denies: chest pain Gastrointestinal: Denies: abdominal pain, vomiting Musculoskeletal: Denies: back pain Neurological: Denies: headache Psychiatric: Denies: suicidal thoughts Past Medical History Past Medical History: GERD/Reflux, Hypertension, Liver Disease Additional Past Medical History / Comment(s): Hepatitis C, DDD, back pain, bilateral carpel tunnel syndrome. He reports that he has heart disease that was found when he had kidney problems but he denies having a stress test or cardiac catheterization. History of Any Multi-Drug Resistant Organisms: None Reported MDRO Source:: unknown Past Surgical History: No Surgical Hx Reported Past Anesthesia/Blood Transfusion Reactions: Unable to Obtain Additional Past Anesthesia/Blood Transfusion Reaction / Comment(s): Pt states he has never had surgery. Past Psychological History: Anxiety, Depression Smoking Status: Current every day smoker Past Alcohol Use History: None Reported Past Drug Use History: Heroin, Methamphetamine - Past Family History Father Family Medical History: Coronary Artery Disease (CAD) Additional Family Medical History / Comment(s): Father is . Mother Family Medical History: Rheumatoid Arthritis (RA) Additional Family Medical History / Comment(s): Mother is . General Exam Limitations: physical limitation General appearance: alert, in no apparent distress Head exam: Present: atraumatic, normocephalic Eye exam: Present: normal appearance ENT exam: Present: normal oropharynx Neck exam: Present: normal inspection, full ROM. Absent: tenderness Respiratory exam: Present: normal lung sounds bilaterally. Absent: respiratory distress, wheezes, rales, rhonchi, chest wall tenderness Cardiovascular Exam: Present: regular rate, normal rhythm, normal heart sounds. Absent: systolic murmur, diastolic murmur, rubs, gallop GI/Abdominal exam: Present: soft. Absent: tenderness, guarding, rebound Extremities exam: Present: normal inspection Back exam: Present: normal inspection. Absent: CVA tenderness (R), CVA tenderness (L), vertebral tenderness Neurological exam: Present: alert. Absent: motor sensory deficit Skin exam: Present: warm, dry, intact, normal color. Absent: rash Course Vital Signs 10/01/20 10/02/20 10/02/20 23:00 00:01 01:00 Temperature 97.5 F L Pulse Rate 99 103 H 78 Respiratory 16 18 16 Rate Blood Pressure 137/88 O2 Sat by Pulse 98 98 Oximetry 10/02/20 01:10 Temperature Pulse Rate 79 Respiratory 16 Rate Blood Pressure 111/62 O2 Sat by Pulse 98 Oximetry Medical Decision Making - Medical Decision Making this patient is a 34-year-old man brought to have general clearance. Given that there was concern for possible overdose, patient is observedin the emergency department. He did remain arousable to voice. He did not have any decrease in his oxygen saturations and his respiratory ratewas normal. After. Observation he is released to custody. - EKG Data -: EKG Interpreted by Md EKG shows normal: sinus rhythm, axis (normal), intervals (normal), QRS complexes (normal), ST-T waves (normal) Rate: normal (rate 99 bpm) Interpretation: normal EKG Disposition Clinical Impression: Substance abuse Disposition: OTHER INSTITUTION NOT DEFINED Condition: Fair Instructions (If sedation given, give patient instructions): Polysubstance [place] (ED) Is patient prescribed a controlled substance at d/c from ED?: No Referrals: None,Stated [Primary Care Provider] - 1-2 days - Out of Hospital Transfer - Req. Specs Out of Hospital Transfer - Requested Specifics: Other Non-Acute
[2020-10-01] MEDS ORDERED: NALOXONE 0.4 MG/ML 10 ML VIAL IVP PRN (23:08)
[2020-10-01] MEDS ORDERED: NALOXONE 0.4 MG/ML 1 ML VIAL IVP PRN (23:12)
[2020-10-02 01:04] VITALS: RESP 16
[2020-10-02 01:11] VITALS: BP 111/62; PULSE 79
== END 2020-10-02 01:33 | disposition other institution (70) ==
LOC: EC 22:57
DX: T40.1X1A Poisoning by heroin, accidental (unintentional), initial encounter (principal); F17.200 Nicotine dependence, unspecified, uncomplicated
CPT/HCPCS: 82075; 99285

== ENCOUNTER 2020-10-24 03:07 | Inpatient (IN) | payer MEDICAID, OTHER ==
--- NOTE | 2020-10-24 03:57 | ED ---
Psych HPI - General Chief Complaint: Psychiatric Symptoms Stated Complaint: Mental Health Time Seen by Provider: 10/24/20 03:19 Source: patient, RN notes reviewed, old records reviewed Mode of arrival: ambulatory Limitations: altered mental status, physical limitation (Emotional) - History of Present Illness Initial Comments: This Is a 35-year-old male DF for evaluation patient has history of psychiatric illness recently and has not been on his medications. Patient again is presenting for severe depression and pending psychiatric evaluation. Does admit alcohol use tonight, patient is been ER before for similar symptoms MD Complaint: feels depressed, other (Alcohol) -: days(s) Associated Psychiatric Symptoms: depression, delusions History of same: Yes Quality: constant Improves With: none Worsens With: none Context: recent alcohol abuse, recent drug abuse, not taking psychiatric medications Treatments Prior to Arrival: placed on mental health hold If Self Harm: admits thoughts of self harm - Related Data Home Medications Medication Instructions Recorded Confirmed Sulfamethox-Tmp 800-160Mg [Bactrim 1 tab PO Q12HR 06/11/20 10/24/20 Ds] Previous Rx's Medication Instructions Recorded Acetaminophen Tab [Tylenol] 650 mg PO Q4HR PRN tab 05/20/20 Benztropine Mesylate [Cogentin] 1 mg PO BID 30 Days tab 05/20/20 Ibuprofen [Motrin] 600 mg PO Q8H PRN tab 05/20/20 Nicotine 14Mg/24Hr Patch [Habitrol] 1 patch TRANSDERM DAILY 14 Days 05/20/20 patch Paliperidone IM [Invega Sustenna] 156 mg IM ONCE #1 syr 05/20/20 Paliperidone [Invega] 3 mg PO BID 4 Days tab.er.24 05/20/20 QUEtiapine [SEROquel] 200 mg PO TID 30 Days tab 05/20/20 Venlafaxine HCl ER [Effexor XR] 225 mg PO DAILY 30 Days cap.er.24h 05/20/20 hydrOXYzine pamoate [Vistaril] 25 mg PO BID PRN 30 Days cap 05/20/20 Cephalexin [Keflex] 500 mg PO Q6HR #40 cap 06/09/20 Allergies Allergy/AdvReac Type Severity Reaction Status Date / Time No Known Allergies Allergy Verified 10/24/20 06:19 Review of Systems ROS Statement: Those systems with pertinent positive or pertinent negative responses have been documented in the HPI. ROS Other: All systems not noted in ROS Statement are negative. Past Medical History Past Medical History: GERD/Reflux, Hypertension, Liver Disease Additional Past Medical History / Comment(s): Hepatitis C, DDD, back pain, bilateral carpel tunnel syndrome. He reports that he has heart disease that was found when he had kidney problems but he denies having a stress test or cardiac catheterization. History of Any Multi-Drug Resistant Organisms: None Reported MDRO Source:: unknown Past Surgical History: No Surgical Hx Reported Past Anesthesia/Blood Transfusion Reactions: Unable to Obtain Additional Past Anesthesia/Blood Transfusion Reaction / Comment(s): Pt states he has never had surgery. Past Psychological History: Anxiety, Depression Smoking Status: Current every day smoker Past Alcohol Use History: None Reported Past Drug Use History: Heroin, Methamphetamine - Past Family History Father Family Medical History: Coronary Artery Disease (CAD) Additional Family Medical History / Comment(s): Father is . Mother Family Medical History: Rheumatoid Arthritis (RA) Additional Family Medical History / Comment(s): Mother is . General Exam Limitations: no limitations General appearance: alert, in no apparent distress, anxious Head exam: Present: atraumatic, normocephalic, normal inspection Eye exam: Present: normal appearance, PERRL, EOMI. Absent: scleral icterus, conjunctival injection, periorbital swelling ENT exam: Present: normal exam, mucous membranes moist Neck exam: Present: normal inspection. Absent: tenderness, meningismus, lymphadenopathy Respiratory exam: Present: normal lung sounds bilaterally. Absent: respiratory distress, wheezes, rales, rhonchi, stridor Cardiovascular Exam: Present: regular rate, normal rhythm, normal heart sounds. Absent: systolic murmur, diastolic murmur, rubs, gallop, clicks GI/Abdominal exam: Present: soft, normal bowel sounds. Absent: distended, tenderness, guarding, rebound, rigid Extremities exam: Present: normal inspection, full ROM, normal capillary refill. Absent: tenderness, pedal edema, joint swelling, calf tenderness Back exam: Present: normal inspection Neurological exam: Present: alert, oriented X3, CN II-XII intact Psychiatric exam: Present: normal affect, normal mood Skin exam: Present: warm, dry, intact, normal color. Absent: rash Course Vital Signs 12/05/20 03:16 Temperature 98.8 F Pulse Rate 105 H Respiratory 18 Rate Blood Pressure 137/82 O2 Sat by Pulse 99 Oximetry - Reevaluation(s) Reevaluation #1: 10/24/20 04:51 Medical records reviewed Medical Decision Making - Medical Decision Making 35 male to be transferred for inpatient for psychiatric evaluation and treatment - Lab Data Result diagrams: 10/24/20 07:01 10/24/20 07:01 Lab Results 10/24/20 10/24/20 Range/Units 04:48 04:48 Urine Color Yellow Urine Appearance Clear (Clear) Urine pH 5.5 (5.0-8.0) Ur Specific [place] 1.016 (1.001-1.035) Urine Protein Negative (Negative) Urine Glucose (UA) Negative (Negative) Urine Ketones 1+ H (Negative) Urine Blood Negative (Negative) Urine Nitrite Negative (Negative) Urine Bilirubin Negative (Negative) Urine Urobilinogen <2.0 (<2.0) mg/dL Ur Leukocyte Esterase Negative (Negative) Urine Opiates Screen Detected H (NotDetected) Ur Oxycodone Screen Not Detected (NotDetected) Urine Methadone Screen Not Detected (NotDetected) Ur Propoxyphene Screen Not Detected (NotDetected) Ur Barbiturates Screen Not Detected (NotDetected) U Tricyclic Antidepress Not Detected (NotDetected) Ur Phencyclidine Scrn Not Detected (NotDetected) Ur Amphetamines Screen Detected H (NotDetected) U Methamphetamines Scrn Detected H (NotDetected) U Benzodiazepines Scrn Not Detected (NotDetected) Urine Cocaine Screen Not Detected (NotDetected) U Marijuana (THC) Screen Detected H (NotDetected) Disposition Clinical Impression: Paranoia (psychosis), Suicidal ideation Disposition: TRANSFER TO PSYCH HOSP/UNIT Condition: Fair Is patient prescribed a controlled substance at d/c from ED?: No
[2020-10-24] MEDS ORDERED: ALPRAZolam 0.25 MG TAB PO STA (05:07)
[2020-10-24] MEDS ORDERED: HALOPERIDOL LACTATE 5 MG/ML 1 ML VIAL IM STA (05:21)
[2020-10-24 05:47] LABS: Amphetamine Screen,Urine Detected (NotDetected); Barbiturate Screen,Urine Not Detected (NotDetected); Benzodiazepines Screen,Urine Not Detected (NotDetected); Cocaine Screen,Urine Not Detected (NotDetected); Methadone Screen, Urine Not Detected (NotDetected); Opiate Screen,Urine Detected (NotDetected); Oxycodone Screen, Urine Not Detected (NotDetected); Phencyclidine Screen,Urine Not Detected (NotDetected); Tricyclic Antidepressant,Urine Not Detected (NotDetected); Urn Cannabinoid Scrn Detected (NotDetected)
[2020-10-24] MEDS ORDERED: MAGNESIUM HYDROXIDE 2,400 MG/10 ML CUP PO PRN (05:51)
[2020-10-24] MEDS ORDERED: MAG HYDROX/AL HYDROX/SIMETH 30 ML CUP PO PRN (05:51)
[2020-10-24] MEDS ORDERED: OLANZapine 10 MG VIAL IM PRN (05:55)
[2020-10-24 06:07] LABS: Appearance,Urine Clear (Clear); Bilirubin,Urine Negative (Negative); Blood,Urine Negative (Negative); Color,Urine Yellow; Glucose,Urine (UA) Negative (Negative); Ketones,Urine 1+ (Negative); Leukocyte Esterase,Urine Negative (Negative); Nitrite,Urine Negative (Negative); PH, Urine 5.5 (5.0-8.0); Protein,Urine Negative (Negative); Specific Gravity,Urine 1.016 (1.001-1.035); Urobilinogen,Urine <2.0 mg/dL (<2.0)
[2020-10-24 07:28] LABS: Basophils # (A) 0.1 k/uL (0-0.2); Basophils % (A) 1 %; Eosinophils % (A) 1 %; HCT 40.7 % (39.0-53.0); HGB 13.7 gm/dL (13.0-17.5); Lymphocytes # (A) 1.2 k/uL (1.0-4.8); Lymphocytes % (A) 27 %; MCH 28.8 pg (25.0-35.0); MCHC 33.7 g/dL (31.0-37.0); MCV 85.6 fL (80.0-100.0); Mean Platelet Volume 8.1; Monocytes # (A) 0.3 k/uL (0-1.0); Monocytes % (A) 6 %; Neutrophils # (A) 2.7 k/uL (1.3-7.7); Neutrophils % (A) 62 %; Platelet Count 141 k/uL (150-450); RBC 4.75 m/uL (4.30-5.90); WBC 4.4 k/uL (3.8-10.6)
[2020-10-24 07:40] LABS: ALT 420 U/L (4-49); AST 306 U/L (17-59); African American GFR (CKD) >90 (>60 ml/min/1.73 sqM); Albumin 4.2 g/dL (3.5-5.0); Alkaline Phosphatase 53 U/L (38-126); Anion Gap 5 mmol/L; Bilirubin, Delta 0.2 mg/dL (0.0-0.2); Bilirubin,Unconjugated 0.5 mg/dL (0.0-1.1); Blood Urea Nitrogen 9 mg/dL (9-20); Calcium 9.3 mg/dL (8.4-10.2); Carbon Dioxide 27 mmol/L (22-30); Chloride 105 mmol/L (98-107); Cholesterol 117 mg/dL (<200); Glucose 74 mg/dL (74-99); HDL Cholesterol 47 mg/dL (40-60); LDL Cholesterol,Calculated 60 mg/dL (0-99); Non-African American GFR(CKD) >90 (>60 ml/min/1.73 sqM); Potassium 4.3 mmol/L (3.5-5.1); Sodium 137 mmol/L (137-145); Total Bilirubin 0.7 mg/dL (0.2-1.3); Triglycerides 52 mg/dL (<150)
[2020-10-24] MEDS: NICOTINE 14MG/24HR PATCH TRANSDERM SCH (09:28)
--- NOTE | 2020-10-24 10:07 | P.HP ---
Psychiatric H&P - . H&P Date: 10/24/20 History & Physical: Allergies Allergy/AdvReac Type Severity Reaction Status Date / Time No Known Allergies Allergy Verified 10/24/20 06:19 Vital Signs Temp 98.2 F 10/24/20 06:42 Pulse 88 10/24/20 06:42 Resp 15 10/24/20 06:42 BP 118/73 10/24/20 06:42 Pulse Ox 98 10/24/20 06:42 Intake & Output 10/23/20 10/24/20 10/24/20 18:59 06:59 18:59 Weight 79.124 kg Laboratory Last Values WBC 4.4 k/uL (3.8-10.6) 10/24/20 07:01 RBC 4.75 m/uL (4.30-5.90) 10/24/20 07:01 Hgb 13.7 gm/dL (13.0-17.5) 10/24/20 07:01 Hct 40.7 % (39.0-53.0) 10/24/20 07:01 MCV 85.6 fL (80.0-100.0) 10/24/20 07:01 MCH 28.8 pg (25.0-35.0) 10/24/20 07:01 MCHC 33.7 g/dL (31.0-37.0) 10/24/20 07:01 RDW 14.0 % (11.5-15.5) 10/24/20 07:01 Plt Count 141 k/uL (150-450) L 10/24/20 07:01 MPV 8.1 10/24/20 07:01 Neutrophils % 62 % 10/24/20 07:01 Lymphocytes % 27 % 10/24/20 07:01 Monocytes % 6 % 10/24/20 07:01 Eosinophils % 1 % 10/24/20 07:01 Basophils % 1 % 10/24/20 07:01 Neutrophils # 2.7 k/uL (1.3-7.7) 10/24/20 07:01 Lymphocytes # 1.2 k/uL (1.0-4.8) 10/24/20 07:01 Monocytes # 0.3 k/uL (0-1.0) 10/24/20 07:01 Eosinophils # 0.0 k/uL (0-0.7) 10/24/20 07:01 Basophils # 0.1 k/uL (0-0.2) 10/24/20 07:01 Sodium 137 mmol/L (137-145) 10/24/20 07:01 Potassium 4.3 mmol/L (3.5-5.1) 10/24/20 07:01 Chloride 105 mmol/L (98-107) 10/24/20 07:01 Carbon Dioxide 27 mmol/L (22-30) 10/24/20 07:01 Anion Gap 5 mmol/L 10/24/20 07:01 BUN 9 mg/dL (9-20) 10/24/20 07:01 Creatinine 0.67 mg/dL (0.66-1.25) 10/24/20 07:01 Est GFR (CKD-EPI)AfAm >90 (>60 ml/min/1.73 sqM) 10/24/20 07:01 Est GFR (CKD-EPI)NonAf >90 (>60 ml/min/1.73 sqM) 10/24/20 07:01 Glucose 74 mg/dL (74-99) 10/24/20 07:01 Calcium 9.3 mg/dL (8.4-10.2) 10/24/20 07:01 Total Bilirubin 0.7 mg/dL (0.2-1.3) 10/24/20 07:01 Conjugated Bilirubin 0.0 mg/dL (0.0-0.3) 10/24/20 07:01 Unconjugated Bilirubin 0.5 mg/dL (0.0-1.1) 10/24/20 07:01 Delta Bilirubin 0.2 mg/dL (0.0-0.2) 10/24/20 07:01 AST 306 U/L (17-59) H 10/24/20 07:01 ALT 420 U/L (4-49) H 10/24/20 07:01 Alkaline Phosphatase 53 U/L (38-126) 10/24/20 07:01 Total Protein 8.0 g/dL (6.3-8.2) 10/24/20 07:01 Albumin 4.2 g/dL (3.5-5.0) 10/24/20 07:01 Triglycerides 52 mg/dL (<150) 10/24/20 07:01 Cholesterol 117 mg/dL (<200) 10/24/20 07:01 LDL Cholesterol, Calc 60 mg/dL (0-99) 10/24/20 07:01 HDL Cholesterol 47 mg/dL (40-60) 10/24/20 07:01 Urine Color Yellow 10/24/20 04:48 Urine Appearance Clear (Clear) 10/24/20 04:48 Urine pH 5.5 (5.0-8.0) 10/24/20 04:48 Ur Specific [place] 1.016 (1.001-1.035) 10/24/20 04:48 Urine Protein Negative (Negative) 10/24/20 04:48 Urine Glucose (UA) Negative (Negative) 10/24/20 04:48 Urine Ketones 1+ (Negative) H 10/24/20 04:48 Urine Blood Negative (Negative) 10/24/20 04:48 Urine Nitrite Negative (Negative) 10/24/20 04:48 Urine Bilirubin Negative (Negative) 10/24/20 04:48 Urine Urobilinogen <2.0 mg/dL (<2.0) 10/24/20 04:48 Ur Leukocyte Esterase Negative (Negative) 10/24/20 04:48 Urine Opiates Screen Detected (NotDetected) H 10/24/20 04:48 Ur Oxycodone Screen Not Detected (NotDetected) 10/24/20 04:48 Urine Methadone Screen Not Detected (NotDetected) 10/24/20 04:48 Ur Propoxyphene Screen Not Detected (NotDetected) 10/24/20 04:48 Ur Barbiturates Screen Not Detected (NotDetected) 10/24/20 04:48 U Tricyclic Antidepress Not Detected (NotDetected) 10/24/20 04:48 Ur Phencyclidine Scrn Not Detected (NotDetected) 10/24/20 04:48 Ur Amphetamines Screen Detected (NotDetected) H 10/24/20 04:48 U Methamphetamines Scrn Detected (NotDetected) H 10/24/20 04:48 U Benzodiazepines Scrn Not Detected (NotDetected) 10/24/20 04:48 Urine Cocaine Screen Not Detected (NotDetected) 10/24/20 04:48 U Marijuana (THC) Screen Detected (NotDetected) H 10/24/20 04:48 Coronavirus (PCR) Not Detected (Not Detectd) 10/24/20 05:52 10/24/20 09:56 IDENTIFYING DATA: This patient is a 35-year-old male, who is homeless, unmarried and is a polysubstance abuser with chronic mental illness. HPI: Patient presented to the hospital yesterday to the emergency department yesterday complaining of depression and suicidal thoughts. Patient is chronically homeless and abuses several drugs. Patient's UDS was positive for opiates, methamphetamine, amphetamines and THC. She also admitted to drinking 1 pint of liquor prior to coming in the hospital. Patient was seen at the bedside today by proposal writer and patient appears to have poor hygiene and grooming and appeared to be uncooperative. He refused to leave his bed and claims that "I'm tired". He displayed poor insight and judgment. He states that he missed his Invega Sustenna injection recently and states that "[facility] didn't give it to me". He quit so that she is "prone to hurt myself" and claims that he was exhibiting paranoia and he recently went through a breakup yesterday with his girlfriend. He states that he was in rehab at [facility] in [place] and was there for 1 week and left on October 19. He claims that he has been crashing at his friend's house for the past few nights. He claims that currently feel depressed and anxious. He states that he does have suicidal thoughts however no intent or plan on the unit. Patient denies any homicidal ideations intent or plan. At this time patient denies any auditory or visual hallucinations. Patient admits to using cigarettes and heroin, and other recreational drugs. Patient does have a history of alcohol abuse in the past. PAST PSYCHIATRIC HISTORY: The patient has had numerous inpatient psychiatric admissions. His last admission was in April 2020. He has been on other mental health unit as well. He has a history of 3 suicide attempts via overdoses and cutting his wrist. He is open with community mental health but noncompliant with treatment. Patient has an active substance use court order for treatment. Patient is currently on Seroquel, Effexor, Cogentin and Vistaril however has not been taking them. Patient was on Invega Sustenna 234 mg monthly injections however did not show up for his last appointment. PMH: Hepatitis C, GERD ALLERGIES: as per EMR CHEMICAL DEPENDENCY HISTORY: as per HPI FAMILY PSYCHIATRIC/SUBSTANCE USE HISTORY: States that "everybody on my mother's side" had mental illness. SOCIAL HISTORY: Patient was born and raised in [facility] and is currently homeless and has no kids is unmarried and completed up to 12th grade. Patient claims that he is unemployed and does not collect any benefits. MENTAL STATUS EXAM: General Appearance: Patient appears to be older than stated age is alert, difficult to redirect and appears to be anxious and evasive. Patient appears to have poor hygiene and grooming. Wearing hospital gown. Behavior: Patient is laying in his bed without any agitated behavior. Appears to be sedated and irritable Speech: Patient's speech is fluent and nonpressured. irritable tone. Mood/Affect: Patient reports their mood is "depressed", affect is congruent and constricted Suicidality/Homicidality: Patient denies having any homicidal ideation intent or plan. Denies any suicidal thoughts no intent or plan Perceptions: Patient denies any visual hallucinations and denies any auditory hallucinations Though content/process: There is no evidence of any delusional thought content and thought process is linear and goal-directed. Poor insight and minimizing his symptoms and drug use. Memory and concentration: AOX3, grossly intact for the purposes of this session. Can spell "WORLD" backwards Judgment and insight: chronically poor/impulsive. STRENGTHS/WEAKNESSES: strength is that patient is resilient. Weakness is that patient has poor judgment and is impulsive INTELLECT: Below average IMPRESSIONS: depressive disorder rule out substance induced mood disorder Alcohol abuse cannabis use disorder methamphetamine abuse opioid use disorder, currently in withdrawal Nicotine dependence PLAN: -Patient is admitted under involuntary status to MHU for stabilization of psychiatric symptoms and safety. Patient refused to sign for medication consents today. -Medications : Will start patient on Seroquel 100 mg qhs times a day for mood stabilization/insomnia. Restarted on Effexor 37.5 mg daily for anxiety/mood. Patient will be restarted on paliperidone 3 mg daily. Will attempt to inquire and verify through [facility] when patients last Invega sustenna dose was given. Vistaril 25 mg every 6 hours when necessary for anxiety. -Haldol IM PRN for agitation/aggression -CIWA protocol with Ativan PRN for ETOH withdrawal -Patient was counselled on substance abuse, however patient has very poor insight and is currently on substance abuse court order. -Patient was informed of the risks, benefits and side effects of the medication and refused to sign for medications. -Internal Medicine consult to perform medical evaluation and physical. -NRT - nicotine patch -SW on board for discharge planning. Encourage patient to participate in groups to work on coping skills.
[2020-10-24] MEDS: VENLAFAXINE HCL ER 37.5 MG CAP PO SCH (10:23)
[2020-10-24] MEDS: PALIPERIDONE 3 MG TAB.ER.24 PO SCH (10:23)
[2020-10-24 13:24] LABS: Hemoglobin A1C 5.1 % (4.0-6.0)
[2020-10-24] MEDS: LORazepam 1 MG TAB PO PRN (16:11)
[2020-10-24] MEDS ORDERED: QUEtiapine 100 MG TAB PO SCH (21:00)
--- NOTE | 2020-10-24 23:47 | P.PN ---
Progress Note - Text Progress Note Date: 10/24/20 Attempted to see the patient in the MHU at 2100. The patient refused to speak to the provider. Will attempt again tomorrow.
[2020-10-25] MEDS: VENLAFAXINE HCL ER 37.5 MG CAP PO SCH (08:22)
[2020-10-25] MEDS: NICOTINE 14MG/24HR PATCH TRANSDERM SCH (08:22)
[2020-10-25] MEDS: PALIPERIDONE 3 MG TAB.ER.24 PO SCH (08:22)
[2020-10-25] MEDS: LORazepam 1 MG TAB PO PRN (08:23)
[2020-10-25] MEDS: ACETAMINOPHEN TAB 325 MG TAB PO PRN ×2 (08:23→12:15)
--- NOTE | 2020-10-25 12:48 | P.PN ---
Progress Note - Text Progress Note Date: 10/25/20 Interval History: Patient was seen lying in his bed this morning and was directable and agreeable to speak with advertising copy writer at the bedside. Patient appears to be more awake today however does state that he feels anxiety and ongoing depression. He was requesting have Seroquel increased for tonight and also this morning. He states that he is continuing to think about his stressors and also his boyfriend who recently left him. He states that he feels uncomfortable about opening up about his relationship with another man. He claims that he was able to sleep approximately 4 hours last night. He is continuing to speak about withdrawal symptoms from the opiates. He states that he has been eating his meals and has not been going to groups. He states that he is having racing thoughts still and ongoing suicidal thoughts however no intent and plan. He also states that he is hearing voices however does not describe what they're telling him. Denies any homical ideations. Patient denies any visual hallucinations. Patient denies any side effects from the medications and has been compliant with meds. Mental Status Exam: General Appearance: Patient appears to be older than stated age is alert, difficult to redirect and appears to be anxious. Patient appears to have poor hygiene and grooming. Behavior: Patient is laying in his bed without any agitated behavior. Appears to be less irritable today. Speech: Patient's speech is fluent and nonpressured. Less irritable today. Mood/Affect: Patient reports their mood is "depressed and anxious", affect is congruent and constricted Suicidality/Homicidality: Patient denies having any homicidal ideation intent or plan. Denies any suicidal thoughts no intent or plan Perceptions: Patient denies any visual hallucinations and denies any auditory hallucinations Though content/process: There is no evidence of any delusional thought content and thought process is linear and goal-directed. Poor insight. Focused on medications. Memory and concentration: AOX3, grossly intact for the purposes of this session. Judgment and insight: chronically poor/impulsive. Assessment depressive disorder rule out substance induced mood disorder Alcohol abuse cannabis use disorder methamphetamine abuse opioid use disorder, currently in withdrawal Nicotine dependence Plan: -Patient continues to meet criteria for inpatient psychiatric admission for symptom stabilization and safety. Patient has signed medication consent and was placed in patient's chart. -Medications: Increase Seroquel to 150 mg daily at bedtime for mood stabilization/insomnia. Added 50 mg of Seroquel during the day. Will increase Effexor to 75 mg daily for tomorrow. Continue with paliperidone 3 mg daily for psychosis. Will attempt to inquire and verify through [facility] when patients last Invega sustenna dose was given. Vistaril 25 mg every 6 hours when necessary for anxiety. -When necessary Ativan and Haldol for agitation/aggression. -CIWA protocol with Ativan PRN for ETOH withdrawal -NRT - nicotine patch -SW on board for discharge planning. Encouraged the patient to participate in milieu.
[2020-10-25] MEDS: QUEtiapine 50 MG TAB PO SCH ×2 (13:20→20:36)
--- NOTE | 2020-10-25 20:37 | P.PN ---
Progress Note - Text Progress Note Date: 10/25/20 Attempted to see the patient again in the MHU at 2030. The patient refused to speak to the scenario writer or be examined.
[2020-10-26] MEDS: QUEtiapine 50 MG TAB PO SCH ×2 (08:12→21:19)
[2020-10-26] MEDS: NICOTINE 14MG/24HR PATCH TRANSDERM SCH (08:12)
[2020-10-26] MEDS: PALIPERIDONE 3 MG TAB.ER.24 PO SCH (08:13)
[2020-10-26] MEDS: VENLAFAXINE HCL ER 75 MG CAP PO SCH (08:13)
[2020-10-26] MEDS: HALOPERIDOL LACTATE 5 MG/ML 1 ML VIAL IM PRN (10:59)
[2020-10-26] MEDS: ACETAMINOPHEN TAB 325 MG TAB PO PRN ×2 (11:24→18:39)
--- NOTE | 2020-10-26 11:24 | P.PN ---
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 He is well known to the psychiatric unit since this is his 10th admission. [facility] with complaints of suicidal ideation. He told the EPS nurse that he plan to either overdose or "slit my wrist." He has been homeless since he left [facility] in September 2020. He was ordered to [facility] as part of his substance abuse treatment order. He told EPS nurse that he left [facility] after 5 days because he was "hearing voices" felt to so people were trying to kill him and receiving "messages" from television. He would not talk about his drug use but his UDS was positive for opiates, amphetamines, methamphetamine and marijuana. Since his last discharge from this unit in May 2020, he had two presentations to the ED for overdoses and two presentations for the treatment of abscess secondary to intravenous use of drugs. He is also on a continuing order for involuntary treatment. Mental status exam: He presented as a disheveled and uncooperative 35-year-old male. He is laying in bed and would not get out of bed for the interview. He would not make eye contact and did not answer most questions. Assessment: He is a middle-aged man with substance use, psychiatric and social issues. He is chronically homeless and persistently noncompliant with treatment. Because of his noncompliance, multiple psychiatric hospitalizations and multiple engagement with the legal system he now has a guardian. He is also on a substance abuse treatment order and the mental health treatment order. He left court ordered residential substance abuse treatment and relapse to use of opiates and methamphetamine. He would likely be incarcerated due of his refusal to abide by the substance abuse treatment order. Since the formulary in the senior living is limited we will transition him from paliperidone to Haldol. Once we establish tolerance then we will begin Haldol loading. Plan: Continue inpatient treatment. Safety precautions. Discontinue paliperidone. Begin Haldol 2.5 mg twice a day. If he shows no adverse reactions to our Haldol then began Haldol Decanoate 100 mg weekly. Continue current dose of Seroquel and Effexor. Encourage participation in therapeutic groups and activities. Evaluate clinical status response to treatment daily basis.
[2020-10-26] MEDS: hydrOXYzine pamoate 25 MG CAP PO PRN ×2 (11:57→17:10)
[2020-10-26] MEDS: haloperidoL 5 MG TAB PO PRN (18:39)
[2020-10-26] MEDS: haloperidoL 5 MG TAB PO SCH (21:19)
[2020-10-27] MEDS: ACETAMINOPHEN TAB 325 MG TAB PO PRN ×2 (08:18→17:06)
[2020-10-27] MEDS: VENLAFAXINE HCL ER 75 MG CAP PO SCH (08:28)
[2020-10-27] MEDS: NICOTINE 14MG/24HR PATCH TRANSDERM SCH (08:28)
[2020-10-27] MEDS: QUEtiapine 50 MG TAB PO SCH ×2 (08:29→20:00)
[2020-10-27] MEDS: haloperidoL 5 MG TAB PO SCH (08:30)
[2020-10-27] MEDS: LORazepam 1 MG TAB PO PRN (08:43)
[2020-10-27] MEDS ORDERED: HALOPERIDOL DECANOATE 100 MG/ML 1 ML VIAL IM SCH (09:00)
--- NOTE | 2020-10-27 11:15 | P.PN ---
Progress Note - Text Progress Note Date: 10/27/20 Clinical Problems: Depressive and psychotic disorder secondary to substance use disorders, rule out schizoaffective disorder, methamphetamine use disorder severe, opiate use disorder severe, cannabis use disorder, poor compliance with treatment, lack of stable housing Interim history: I reviewed the medical record, interviewed the patient and discussed his treatment and treatment plan during team meeting. His only complaint was anxiety and nursing staff reported that she frequently requests when necessary medications and he primarily seeks doses of Ativan. He complained of feeling depressed but denied having suicidal ideation or wishes. He denied experiencing paranoia and denied such psychotic symptoms as ideas of reference, thought insertion, thought broadcasting or thought control. He expressed an interest in reentering residential substance abuse treatment program. However, social science professor spoke with his guardian who wants him to complete his fdc sentence. He received multiple oral doses as well as injections of haloperidol without adverse events. Mental status exam: He presented as a disheveled and uncooperative 35-year-old male. He made eye contact and appeared to attend to the interview. No distinguishing features or prominent physical abnormalities. He had a blunted facial expression. He was alert and oriented to person, place and time. He was not restless or agitated. His speech was spontaneous with decreased rate and volume. His affect was blunted but stable and appropriate. He denied suicidal ideation and wishes. He denied homicidal ideation. He denied feeling hopeless or helpless. He ruminated about subjective anxiety but did not express ideas reference, paranoid ideation or delusions. His thinking was concrete but his associations were coherent, logical and goal directed. Assessment: I suspect that his presentation is related to his chronic use of heroin, amphetamines, methamphetamine and other drugs but I cannot exclude an underlying psychotic illness. He appears to have recovered from his substance use and the paranoia and depression have resolved. Plan: Continue inpatient treatment. Safety precautions. Discontinue oral Haldol and began Haldol Decanoate 100 mg IM weekly. If he shows no adverse re actions to our Haldol then began Haldol Decanoate 100 mg weekly. Continue current dose of Seroquel and Effexor. industrial relations worker to coordinate discharge and aftercare and cooperation with the patient's guardian. Encourage participation in therapeutic groups and activities. Evaluate clinical status response to treatment daily basis.
[2020-10-27] MEDS: HALOPERIDOL LACTATE 5 MG/ML 1 ML VIAL IM PRN (17:07)
[2020-10-27] MEDS: LORazepam 0.5 MG TAB PO PRN (19:18)
[2020-10-28 07:15] VITALS: TEMP 97.6
[2020-10-28] MEDS: VENLAFAXINE HCL ER 75 MG CAP PO SCH (08:04)
[2020-10-28] MEDS: QUEtiapine 50 MG TAB PO SCH (08:04)
[2020-10-28] MEDS: ACETAMINOPHEN TAB 325 MG TAB PO PRN ×2 (08:04→11:53)
[2020-10-28] MEDS: NICOTINE 14MG/24HR PATCH TRANSDERM SCH (08:04)
[2020-10-28] MEDS: LORazepam 0.5 MG TAB PO PRN (08:04)
[2020-10-28] MEDS: haloperidoL 5 MG TAB PO PRN ×2 (08:06→14:19)
[2020-10-28 08:09] VITALS: BP 105/67; PULSE 101; RESP 20
[2020-10-28] MEDS: hydrOXYzine pamoate 25 MG CAP PO PRN (09:59)
[2020-10-28] MEDS ORDERED: IBUPROFEN 600 MG TAB PO PRN (11:18)
--- NOTE | 2020-10-28 11:55 | P.DS ---
Providers Date of admission: 10/24/20 05:42 Attending physician: Jose Rafael Cooper MD Consults: 10/24/20 05:51 Consult Physician Routine Consulting Provider: Doron James Consult Reason/Comments: For H & P for Medical Follow Up Do you want consulting provider notified?: Yes Primary care physician: Stated None - Discharge Diagnosis(es) (1) Substance induced mood disorder Current Visit: Yes Status: Acute Priority: High (2) Methamphetamine use disorder, severe Current Visit: Yes Status: Chronic Priority: High (3) Opioid use disorder, severe, dependence Current Visit: Yes Status: Chronic Priority: High (4) Cannabis use disorder, moderate, dependence Current Visit: Yes Status: Chronic Priority: Medium (5) Schizoaffective disorder, depressive type Current Visit: Yes Status: Chronic Priority: Medium (6) Noncompliance with treatment Current Visit: Yes Status: Chronic Priority: High Hospital Course: HISTORY: He is a 35-year-old male who is well known to psychiatric unit from multiple prior admissions. He presented to [facility] with complaints of suicidal ideation. He has received various diagnoses with the most consistent for her chronic substance use including methamphetamine, alcohol, or opioid pain medications, heroin, and marijuana. His UDS was positive for opiates, amphetamines, methamphetamine and marijuana. His breath alcohol level was 0.025. Since his last discharge from this unit in May 2020, he had two presentations to the ED for overdoses and two presentations for the treatment of abscess secondary to intravenous use of drugs. He has been homeless since he left [facility] in September 2020. He was ordered to [facility] as part of his substance abuse treatment order. He told EPS nurse that he left [facility] after 5 days because he was "hearing voices" felt to so people were trying to kill him and receiving "messages" from television. HOSPITAL COURSE: We admitted him to the psychiatric unit under the care of this screen writer. We provided a comprehensive biopsychosocial assessment. He refused to meet with the ophthalmic medical assistant. He obtained a hematology and basic metabolic panel. He has slight decrease in platelet count 141 and his AST and ALT were both elevated 306 and 420 respectively. We restarted Seroquel, Effexor, and Invega. The social service manager spoke with his guardian coordinate discharge and aft ercare. Although the patient wanted to return to [facility] to complete outpatient substance abuse treatment, the guardian informed us that he had violated the terms of his outpatient substance abuse treatment order and the courts will be issuing a warrant for his arrest. Because paliperidone cisterna is not on the shelter formulary, we started Haldol oral and IM. Once we establish tolerance and we began Haldol Decanoate 100 mg weekly. The patient did not participate in therapeutic groups and activities. He did not associate with staff or peers. He spent his time in bed, coming out only for meals, medications or requests for when necessary medications. He frequently requested when necessary medications for complaints of subjective anxiety and received multiple doses of Haldol, Vistaril and Ativan. Given his history of substance use and substance use problems we gradually tapered the amount of when necessary Ativan available to him. STATUS ON DISCHAt time of discharge she presented as a disheveled appearing 35-year-old male who was minimally cooperative. He complained of hip and leg pain and was requesting a "stronger" pain medication. He showed no abnormality of psychomotor activity. Her speech was is not spontaneous. His affect was withdrawn and depressed. He did not express suicidal ideation, wishes or homicidal ideation. He did not express feelings of hopelessness, helplessness and worthless. Denies express ideas reference, paranoid ideation or delusions. His thinking was concrete, medication focused and perseverative. He does not appear to be responding to internal stimuli. POSITION: He would be discharge to the custody of law enforcement. His discharge medications included Haldol decanoate 100 mg IM weekly, Seroquel 50 mg in morning and 100 mg at bedtime, Vistaril 25 mg twice a day when necessary for anxiety and Effexor 75 mg daily. Patient Condition at Discharge: Stable Plan - Discharge Summary New Discharge Prescriptions: New Venlafaxine HCl ER [Effexor XR] 75 mg PO DAILY #30 cap.er.24h Haloperidol Decanoate [Haldol D] 100 mg IM Q7D #1 vial QUEtiapine [SEROquel] 50 mg PO DAILY #30 tab QUEtiapine [SEROquel] 100 mg PO HS #30 tab Continue Nicotine 14Mg/24Hr Patch [Habitrol] 1 patch TRANSDERM DAILY 14 Days patch Acetaminophen Tab [Tylenol] 650 mg PO Q4HR PRN tab PRN Reason: Pain/Discomfort hydrOXYzine pamoate [Vistaril] 25 mg PO BID PRN 30 Days cap PRN Reason: Anxiety Discontinued Benztropine Mesylate [Cogentin] 1 mg PO BID 30 Days tab Venlafaxine HCl ER [Effexor XR] 225 mg PO DAILY 30 Days cap.er.24h Paliperidone [Invega] 3 mg PO BID 4 Days tab.er.24 Paliperidone IM [Invega Sustenna] 156 mg IM ONCE #1 syr Ibuprofen [Motrin] 600 mg PO Q8H PRN tab PRN Reason: Moderate To Severe Pain QUEtiapine [SEROquel] 200 mg PO TID 30 Days tab Cephalexin [Keflex] 500 mg PO Q6HR #40 cap Sulfamethox-Tmp 800-160Mg [Bactrim Ds] 1 tab PO Q12HR Discharge Medication List Acetaminophen Tab [Tylenol] 650 mg PO Q4HR PRN tab 05/20/20 [Rx] Nicotine 14Mg/24Hr Patch [Habitrol] 1 patch TRANSDERM DAILY 14 Days patch 05/20/20 [Rx] Haloperidol Decanoate [Haldol D] 100 mg IM Q7D #1 vial 10/28/20 [Rx] QUEtiapine [SEROquel] 50 mg PO DAILY #30 tab 10/28/20 [Rx] QUEtiapine [SEROquel] 100 mg PO HS #30 tab 10/28/20 [Rx] Venlafaxine HCl ER [Effexor XR] 75 mg PO DAILY #30 cap.er.24h 10/28/20 [Rx] hydrOXYzine pamoate [Vistaril] 25 mg PO BID PRN 30 Days cap 10/28/20 [Rx] Follow up Appointment(s)/Referral(s): intake,intake [Other] - 10/28/20 4:00 pm [facility] [NON-STAFF] - 1 Week Patient Instructions/Handouts: How to Stop Smoking (DC), Psychotic Disorder (GEN) Activity/Diet/Wound Care/Special Instructions: Activity and diet as tolerated. Avoid the use of street drugs and alcohol. Take all medications as prescribed. When you are in need of refills on your medications please contact your medical provider and/or outpatient psychiatrist to have this done. Please go to scheduled outpatient appointment for aftercare treatment. If symptoms return or become worse, call the crisis line at and/or go to the nearest emergency room for evaluation. Discharge Disposition: DC/TRANSFER COURT/LAW
[2020-10-28] MEDS ORDERED: LORazepam 0.5 MG TAB PO SCH (21:00)
[2020-10-28] MEDS ORDERED: QUEtiapine 100 MG TAB PO SCH (21:00)
== END 2020-10-28 14:28 | disposition home or self-care (01) | DRG 897 ==
LOC: EC 03:07 → 3MHU 05:42
PROVIDERS: ADMIT Psychiatry & Neurology Psychiatry; ATTEND Psychiatry & Neurology Psychiatry
DX: F19.94 Other psychoactive substance use, unspecified with psychoactive substance-induced mood disorder (principal); F15.20 Other stimulant dependence, uncomplicated; R45.851 Suicidal ideations; F25.1 Schizoaffective disorder, depressive type; F10.10 Alcohol abuse, uncomplicated; F11.23 Opioid dependence with withdrawal; F12.20 Cannabis dependence, uncomplicated; Z20.828 Contact with and (suspected) exposure to other viral communicable diseases; K21.9 Gastro-esophageal reflux disease without esophagitis; F41.9 Anxiety disorder, unspecified; I10 Essential (primary) hypertension; M54.9 Dorsalgia, unspecified; B19.20 Unspecified viral hepatitis C without hepatic coma; G56.03 Carpal tunnel syndrome, bilateral upper limbs; Y90.1 Blood alcohol level of 20-39 mg/100 ml; M79.606 Pain in leg, unspecified; F17.210 Nicotine dependence, cigarettes, uncomplicated; Z71.6 Tobacco abuse counseling; Z91.5 Personal history of self-harm; Z91.19 Patient's noncompliance with other medical treatment and regimen; Z79.899 Other long term (current) drug therapy; Z59.0 Homelessness; Z82.49 Family history of ischemic heart disease and other diseases of the circulatory system; Z82.61 Family history of arthritis
CPT/HCPCS: 80053; 80061; 80306; 81003; 82075; 82248; 83036; 84443; 85025; 87635; 96372; 99285

== ENCOUNTER 2021-01-20 19:27 | Inpatient (IN) | payer OTHER ==
[2021-01-20] MEDS ORDERED: LORazepam 2 MG/ML INJ IV STA (19:36)
[2021-01-20] MEDS ORDERED: cloNIDine HCL 0.1 MG TAB PO STA ×2 (19:36→20:39)
[2021-01-20] MEDS ORDERED: SODIUM CHLORIDE 0.9% 1,000 ML IV ONE (19:37)
[2021-01-20 19:54] LABS: Basophils % (A) 1 %; Eosinophils # (A) 0.1 k/uL (0-0.7); Eosinophils % (A) 1 %; HCT 40.6 % (39.0-53.0); HGB 13.6 gm/dL (13.0-17.5); Lymphocytes # (A) 1.3 k/uL (1.0-4.8); Lymphocytes % (A) 21 %; MCH 28.9 pg (25.0-35.0); MCHC 33.5 g/dL (31.0-37.0); MCV 86.1 fL (80.0-100.0); Monocytes # (A) 0.4 k/uL (0-1.0); Monocytes % (A) 6 %; Neutrophils # (A) 4.4 k/uL (1.3-7.7); Neutrophils % (A) 70 %; Platelet Count 191 k/uL (150-450); RBC 4.71 m/uL (4.30-5.90); RDW 14.7 % (11.5-15.5); WBC 6.2 k/uL (3.8-10.6)
--- NOTE | 2021-01-20 19:55 | ED ---
General Adult HPI - General Chief complaint: Recheck/Abnormal Lab/Rx Stated complaint: Withdrawal Time Seen by Provider: 01/20/21 19:30 Source: patient, EMS, RN notes reviewed, old records reviewed Mode of arrival: EMS Limitations: no limitations - History of Present Illness Initial comments: This is 35-year-old male who presents emergency Department complaining that he stopped using heroin yesterday because he is trying to quit. Patient states since then he's become extremely shaky and sweaty. Patient denies any headache patient denies any difficulty breathing shortest breath per patient denies any chest pain or palpitations. Patient denies any other drug use. Patient denies any nausea vomiting or diarrhea. Patient denies any other complaints this time. Patient states she's gone through this before in the past and these symptoms feel similar to him. - Related Data Previous Rx's Medication Instructions Recorded Acetaminophen Tab [Tylenol] 650 mg PO Q4HR PRN tab 05/20/20 Nicotine 14Mg/24Hr Patch [Habitrol] 1 patch TRANSDERM DAILY 14 Days 05/20/20 patch Haloperidol Decanoate [Haldol D] 100 mg IM Q7D #1 vial 10/28/20 QUEtiapine [SEROquel] 50 mg PO DAILY #30 tab 10/28/20 QUEtiapine [SEROquel] 100 mg PO HS #30 tab 10/28/20 Venlafaxine HCl ER [Effexor XR] 75 mg PO DAILY #30 cap.er.24h 10/28/20 hydrOXYzine pamoate [Vistaril] 25 mg PO BID PRN 30 Days cap 10/28/20 Allergies Allergy/AdvReac Type Severity Reaction Status Date / Time No Known Allergies Allergy Verified 01/20/21 19:40 Review of Systems ROS Statement: Those systems with pertinent positive or pertinent negative responses have been documented in the HPI. ROS Other: All systems not noted in ROS Statement are negative. Past Medical History Past Medical History: GERD/Reflux, Hypertension, Liver Disease Additional Past Medical History / Comment(s): Hepatitis C, DDD, back pain, bilateral carpel tunnel syndrome. He reports that he has heart disease that was found when he had kidney problems but he denies having a stress test or cardiac catheterization. History of Any Multi-Drug Resistant Organisms: None Reported MDRO Source:: unknown Past Surgical History: No Surgical Hx Reported Past Anesthesia/Blood Transfusion Reactions: Unable to Obtain Additional Past Anesthesia/Blood Transfusion Reaction / Comment(s): Pt states he has never had surgery. Past Psychological History: Anxiety, Depression Smoking Status: Current every day smoker Past Alcohol Use History: None Reported Past Drug Use History: Heroin, Methamphetamine - Past Family History Father Family Medical History: Coronary Artery Disease (CAD) Additional Family Medical History / Comment(s): Father is . Mother Family Medical History: Rheumatoid Arthritis (RA) Additional Family Medical History / Comment(s): Mother is . General Exam - General Exam Comments Initial Comments: GENERAL: Patient is well-developed and well-nourished. Patient is nontoxic and well- hydrated and is in moderate distress. Patient is extremely diaphoretic. Patient is also shaking. ENT: Neck is soft and supple. No significant lymphadenopathy is noted. Oropharynx is clear. Moist mucous membranes. Neck has full range of motion without elic iting any pain. EYES: The sclera were anicteric and conjunctiva were pink and moist. Extraocular movements were intact and pupils were equal round and reactive to light. Eyelids were unremarkable. PULMONARY: Unlabored respirations. Good breath sounds bilaterally. No audible rales rhonchi or wheezing was noted. CARDIOVASCULAR: There is a regular rate and rhythm without any murmurs gallops or rubs. ABDOMEN: Soft and nontender with normal bowel sounds. SKIN: Skin is clear with no lesions or rashes and otherwise unremarkable. NEUROLOGIC: Patient is alert and oriented x3. Cranial nerves II through XII are grossly intact. Motor and sensory are also intact. Normal speech, volume and content. Symmetrical smile. MUSCULOSKELETAL: Normal extremities with adequate strength and full range of motion. No lower extremity swelling or edema. No calf tenderness. LYMPHATICS: No significant lymphadenopathy is noted PSYCHIATRIC: Normal psychiatric evaluation. Limitations: no limitations Course Vital Signs 01/20/21 01/20/21 19:28 20:34 Temperature 98.1 F Pulse Rate 88 80 Respiratory 22 18 Rate Blood Pressure 146/108 144/88 O2 Sat by Pulse 98 98 Oximetry Medical Decision Making - Medical Decision Making EKG shows normal sinus rhythm at 78 bpm TN interval 140 dresses 88 QT interval 360 QTC is 419. Patient's EKG shows no ST segment elevation or depression. Patient received Ativan a [facility] emergency department he was feeling considerably better. Patient's drug screen came back with methamphetamine at which point time the patient did admit to doing methamphetamine but he stated earlier he must of forgot about that. - Lab Data Result diagrams: 01/20/21 19:48 01/20/21 19:48 Lab Results 01/20/21 01/20/21 01/20/21 Range/Units 19:48 19:48 19:48 WBC 6.2 (3.8-10.6) k/uL RBC 4.71 (4.30-5.90) m/uL Hgb 13.6 (13.0-17.5) gm/dL Hct 40.6 (39.0-53.0) % MCV 86.1 (80.0-100.0) fL MCH 28.9 (25.0-35.0) pg MCHC 33.5 (31.0-37.0) g/dL RDW 14.7 (11.5-15.5) % Plt Count 191 (150-450) k/uL MPV 8.0 Neutrophils % 70 % Lymphocytes % 21 % Monocytes % 6 % Eosinophils % 1 % Basophils % 1 % Neutrophils # 4.4 (1.3-7.7) k/uL Lymphocytes # 1.3 (1.0-4.8) k/uL Monocytes # 0.4 (0-1.0) k/uL Eosinophils # 0.1 (0-0.7) k/uL Basophils # 0.0 (0-0.2) k/uL Sodium 136 L (137-145) mmol/L Potassium 4.3 (3.5-5.1) mmol/L Chloride 102 (98-107) mmol/L Carbon Dioxide 28 (22-30) mmol/L Anion Gap 6 mmol/L BUN 10 (9-20) mg/dL Creatinine 0.63 L (0.66-1.25) mg/dL Est GFR (CKD-EPI)AfAm >90 (>60 ml/min/1.73 sqM) Est GFR (CKD-EPI)NonAf >90 (>60 ml/min/1.73 sqM) Glucose 100 H (74-99) mg/dL Calcium 9.4 (8.4-10.2) mg/dL Total Bilirubin 0.7 (0.2-1.3) mg/dL AST 299 H (17-59) U/L ALT 404 H (4-49) U/L Alkaline Phosphatase 61 (38-126) U/L Total Protein 8.1 (6.3-8.2) g/dL Albumin 4.0 (3.5-5.0) g/dL Salicylates <1.0 mg/dL Urine Opiates Screen (NotDetected) Ur Oxycodone Screen (NotDetected) Urine Methadone Screen (NotDetected) Ur Propoxyphene Screen (NotDetected) Acetaminophen <10.0 ug/mL Ur Barbiturates Screen (NotDetected) U Tricyclic Antidepress (NotDetected) Ur Phencyclidine Scrn (NotDetected) Ur Amphetamines Screen (NotDetected) U Methamphetamines Scrn (NotDetected) U Benzodiazepines Scrn (NotDetected) Urine Cocaine Screen (NotDetected) U Marijuana (THC) Screen (NotDetected) 01/20/21 Range/Units 20:29 WBC (3.8-10.6) k/uL RBC (4.30-5.90) m/uL Hgb (13.0-17.5) gm/dL Hct (39.0-53.0) % MCV (80.0-100.0) fL MCH (25.0-35.0) pg MCHC (31.0-37.0) g/dL RDW (11.5-15.5) % Plt Count (150-450) k/uL MPV Neutrophils % % Lymphocytes % % Monocytes % % Eosinophils % % Basophils % % Neutrophils # (1.3-7.7) k/uL Lymphocytes # (1.0-4.8) k/uL Monocytes # (0-1.0) k/uL Eosinophils # (0-0.7) k/uL Basophils # (0-0.2) k/uL Sodium (137-145) mmol/L Potassium (3.5-5.1) mmol/L Chloride (98-107) mmol/L Carbon Dioxide (22-30) mmol/L Anion Gap mmol/L BUN (9-20) mg/dL Creatinine (0.66-1.25) mg/dL Est GFR (CKD-EPI)AfAm (>60 ml/min/1.73 sqM) Est GFR (CKD-EPI)NonAf (>60 ml/min/1.73 sqM) Glucose (74-99) mg/dL Calcium (8.4-10.2) mg/dL Total Bilirubin (0.2-1.3) mg/dL AST (17-59) U/L ALT (4-49) U/L Alkaline Phosphatase (38-126) U/L Total Protein (6.3-8.2) g/dL Albumin (3.5-5.0) g/dL Salicylates mg/dL Urine Opiates Screen Not Detected (NotDetected) Ur Oxycodone Screen Not Detected (NotDetected) Urine Methadone Screen Not Detected (NotDetected) Ur Propoxyphene Screen Not Detected (NotDetected) Acetaminophen ug/mL Ur Barbiturates Screen Not Detected (NotDetected) U Tricyclic Antidepress Not Detected (NotDetected) Ur Phencyclidine Scrn Not Detected (NotDetected) Ur Amphetamines Screen Detected H (NotDetected) U Methamphetamines Scrn Detected H (NotDetected) U Benzodiazepines Scrn Not Detected (NotDetected) Urine Cocaine Screen Not Detected (NotDetected) U Marijuana (THC) Screen Detected H (NotDetected) Disposition Clinical Impression: Methamphetamine abuse, Heroin abuse Disposition: ADMITTED IP TO THIS HOSP Referrals: None,Stated [Primary Care Provider] - 1-2 days Time of Disposition: 20:57
[2021-01-20 20:04] LABS: ALT 404 U/L (4-49); AST 299 U/L (17-59); African American GFR (CKD) >90 (>60 ml/min/1.73 sqM); Alkaline Phosphatase 61 U/L (38-126); Anion Gap 6 mmol/L; Blood Urea Nitrogen 10 mg/dL (9-20); Calcium 9.4 mg/dL (8.4-10.2); Carbon Dioxide 28 mmol/L (22-30); Chloride 102 mmol/L (98-107); Glucose 100 mg/dL (74-99); Non-African American GFR(CKD) >90 (>60 ml/min/1.73 sqM); Potassium 4.3 mmol/L (3.5-5.1); Sodium 136 mmol/L (137-145); Total Bilirubin 0.7 mg/dL (0.2-1.3); Total Protein 8.1 g/dL (6.3-8.2)
--- NOTE | 2021-01-20 20:29 | XR ---
EXAMINATION TYPE: XR chest 2V DATE OF EXAM: 01/20/2021 COMPARISON: 12/10/2019 HISTORY: Difficulty breathing TECHNIQUE: FINDINGS: Heart and mediastinum are normal. Lungs are clear. Diaphragm is normal. Bony thorax is inta ct. There are chest leads. IMPRESSION: Normal chest. No change.
[2021-01-20 20:36] LABS: Acetaminophen <10.0 ug/mL; Salicylate <1.0 mg/dL
[2021-01-20] MEDS ORDERED: hydrALAZINE HCL 25 MG TAB PO STA (20:39)
[2021-01-20 20:44] LABS: Amphetamine Screen,Urine Detected (NotDetected); Barbiturate Screen,Urine Not Detected (NotDetected); Benzodiazepines Screen,Urine Not Detected (NotDetected); Cocaine Screen,Urine Not Detected (NotDetected); Methadone Screen, Urine Not Detected (NotDetected); Opiate Screen,Urine Not Detected (NotDetected); Oxycodone Screen, Urine Not Detected (NotDetected); Phencyclidine Screen,Urine Not Detected (NotDetected); Tricyclic Antidepressant,Urine Not Detected (NotDetected); Urn Cannabinoid Scrn Detected (NotDetected)
[2021-01-20] MEDS: SODIUM CHLORIDE 0.9% 1,000 ML IV ONE (21:47)
[2021-01-20] MEDS: LORazepam 2 MG/ML INJ IV PRN (22:11)
[2021-01-21] MEDS: LORazepam 2 MG/ML INJ IV PRN ×4 (01:47→23:55)
[2021-01-21] MEDS: SODIUM CHLORIDE 0.9% 1,000 ML IV ONE (01:48)
[2021-01-21] MEDS ORDERED: hydrOXYzine HCL 25 MG TAB PO PRN (11:10)
[2021-01-21] MEDS ORDERED: ONDANSETRON 4 MG TAB PO PRN (11:12)
[2021-01-21] MEDS ORDERED: LOPERAMIDE 2 MG CAP PO PRN (11:12)
[2021-01-21] MEDS: FAMOTIDINE 20 MG TAB PO SCH ×2 (12:00→20:20)
[2021-01-21] MEDS: NAPROXEN 250 MG TAB PO SCH ×2 (12:00→17:22)
[2021-01-21] MEDS: cloNIDine HCL 0.1 MG TAB PO SCH ×3 (12:00→20:20)
--- NOTE | 2021-01-21 12:53 | P.HPIM ---
History of Present Illness This is a pleasant 55 years old male with past medical history of schizoaffective disorder, substance abuse and noncompliance with treatment. History of IV drug abuse Patient states he came to the hospital because of sweating, shakiness and low back pain he thinks his back is locked because he has been in the lower back, he states that his low back pain is chronic. He complains from weakness in his lower extremities however on my examination it looks strength 5/5. Not sure if he has numbness in his leg, however he denies perineal paresthesia, no urine or bowel incontinence. As per patient last time he used heroin was last August however. Based using IV drug abuse with her With methamphetamine Patient states also he voices to call himself Patient denies chest pain or dyspnea or coughing. No headache or weakness or numbness in extremities. No diarrhea or vomiting. No urinary complaints. He smokes 1 pack per day, illicit tracts as above and denies alcohol I to public guardian and at [phone] extension 4, and I discussed the case with her, she agrees for him to get MRI of the lumbar spine and she confirmed to be he has no pacemaker, aneurysm clips or heart valve. She wasn't sure if he is claustrophobic. Also she told me he is noncompliant to treatment he always homeless and they and the court with the guardian tried to put him in rehab and although he has a court order to stay in rehab, he always leaves within 24 hours Vitas looks stable, slightly tachycardic at 115. Blood pressure 153/90. Labs including CBC, basic metabolic panel are unremarkable. Liver enzymes slightly elevated with AST 299 and ALT 404 EKG showed normal sinus rhythm at [address]-T changes Chest x-ray: No acute process Review of Systems CONSTITUTIONAL: No fever, no malaise, no fatigue. HEENT: No recent visual problems or hearing problems. Denied any sore throat. CARDIOVASCULAR: No orthopnea, PND, no palpitations, no syncope. PULMONARY: No shortness of breath, no cough, no hemoptysis. GASTROINTESTINAL: No diarrhea, no nausea, no vomiting, no abdominal pain. Normoa ctive bowel sounds. NEUROLOGICAL: No headaches, no weakness, no numbness. HEMATOLOGICAL: Denies any bleeding or petechiae. GENITOURINARY: Denies any burning micturition, frequency, or urgency. MUSCULOSKELETAL/RHEUMATOLOGICAL: Denies any joint pain, swelling, or any muscle pain. ENDOCRINE: Denies any polyuria or polydipsia. Past Medical History Past Medical History: GERD/Reflux, Hypertension, Liver Disease Additional Past Medical History / Comment(s): Hepatitis C, DDD, back pain, bilateral carpel tunnel syndrome. He reports that he has heart disease that was found when he had kidney problems but he denies having a stress test or cardiac catheterization. History of Any Multi-Drug Resistant Organisms: None Reported MDRO Source:: unknown Past Surgical History: No Surgical Hx Reported Past Anesthesia/Blood Transfusion Reactions: Unable to Obtain Additional Past Anesthesia/Blood Transfusion Reaction / Comment(s): Pt states he has never had surgery. Past Psychological History: Anxiety, Depression Additional Psychological History / Comment(s): Homeless, Patient stated he has a history of being suicial. State no suicidal ideations currently 07/15/20 [id number] Smoking Status: Current every day smoker Past Alcohol Use History: None Reported Additional Past Alcohol Use History / Comment(s): Pt started smoking in 1993 and smokes 0.5-1ppd. and marijuana Past Drug Use History: Heroin, Methamphetamine Additional Drug Use History / Comment(s): Pt states he uses marijuana occasionally. Past use heroin, meth, iv drug use. Denies currently - Past Family History Father Family Medical History: Coronary Artery Disease (CAD) Additional Family Medical History / Comment(s): Father is . Mother Family Medical History: Rheumatoid Arthritis (RA) Additional Family Medical History / Comment(s): Mother is . Medications and Allergies Home Medications Medication Instructions Recorded Confirmed Type Acetaminophen Tab [Tylenol] 650 mg PO Q4HR PRN tab 05/20/20 01/20/21 Rx Nicotine 14Mg/24Hr Patch [Habitrol] 1 patch TRANSDERM DAILY 14 Days 05/20/20 01/20/21 Rx patch Haloperidol Decanoate [Haldol D] 100 mg IM Q7D #1 vial 10/28/20 01/20/21 Rx QUEtiapine [SEROquel] 50 mg PO DAILY #30 tab 10/28/20 01/20/21 Rx QUEtiapine [SEROquel] 100 mg PO HS #30 tab 10/28/20 01/20/21 Rx Venlafaxine HCl ER [Effexor XR] 75 mg PO DAILY #30 cap.er.24h 10/28/20 01/20/21 Rx hydrOXYzine pamoate [Vistaril] 25 mg PO BID PRN 30 Days cap 10/28/20 01/20/21 Rx Allergies Allergy/AdvReac Type Severity Reaction Status Date / Time No Known Allergies Allergy Verified 01/20/21 19:40 Physical Exam Vitals: Vital Signs Temp Pulse Pulse Resp BP BP Pulse Ox 01/21/21 08:00 98.2 F 115 H 16 153/90 96 01/21/21 01:32 98.0 F 77 14 128/80 95 01/20/21 22:36 97.6 F 78 15 117/71 97 01/20/21 22:14 97.9 F 95 20 133/95 97 01/20/21 21:13 81 18 149/89 98 01/20/21 20:34 80 18 144/88 98 01/20/21 19:40 24 01/20/21 19:28 98.1 F 88 22 146/108 98 Intake and Output 01/20/21 01/21/21 01/21/21 22:59 06:59 14:59 Intake Total 800 Balance 800 Intake: Intake, IV Titration 800 Amount Sodium Chloride 0.9% 1, 800 000 ml @ 100 mls/hr IV . Q10H ONE Rx#:[id number] Other: # Voids 1 Weight 90.718 kg 90.718 kg GENERAL: The patient is alert and oriented x3, not in any acute distress. Well developed, well nourished. HEENT: Pupils are round and equally reacting to light. EOMI. No scleral icterus. No conjunctival pallor. Normocephalic, atraumatic. No pharyngeal erythema. No thyromegaly. CARDIOVASCULAR: S1 and S2 present. No murmurs, rubs, or gallops. PULMONARY: Chest is clear to auscultation, no wheezing or crackles. ABDOMEN: Soft, nontender, nondistended, normoactive bowel sounds. No palpable organomegaly. MUSCULOSKELETAL: No joint swelling or deformity. EXTREMITIES: No cyanosis, clubbing, or pedal edema. -NEUROLOGICAL: Gross neurological examination did not reveal any focal deficits. He looks stable. Strength in the lower extremity are 5/5 and an approximately also 5/5. Sensation is intact. Meningeal signs are absent SKIN: No rashes. No petechiae Results CBC & Chem 7: 01/20/21 19:48 01/20/21 19:48 Labs: Abnormal Lab Results - Last 24 Hours (Table) 01/20/21 01/20/21 Range/Units 19:48 20:29 Sodium 136 L (137-145) mmol/L Creatinine 0.63 L (0.66-1.25) mg/dL Glucose 100 H (74-99) mg/dL AST 299 H (17-59) U/L ALT 404 H (4-49) U/L Ur Amphetamines Screen Detected H (NotDetected) U Methamphetamines Scrn Detected H (NotDetected) U Marijuana (THC) Screen Detected H (NotDetected) Thrombosis Risk Factor Assmnt - Choose All That Apply Any of the Below Risk Factors Present?: No Other Risk Factors: No Other congenital or acquired thrombophilia - If yes, enter type in comment: No Thrombosis Risk Factor Assessment Level: Very Low Risk Assessment and Plan Assessment: Low back pain substance abuse and withdrawal. He is still on to be Heroin dependent and addiction going through withdrawal from methamphetamine and possible heroin IV drug abuse transaminitis schizoaffective disorder homeless History of noncompliance to treatment History of IV drug abuse Hepatitis C history of depression and anxiety, not an active issue has a public guardian Plan: this is a pleasant 35 years old male who presents with substance abuse with heroin and undergoing withdrawal.. We will treat withdrawal with naprosen , Atarax, Zofran, Imodium, trazodone and clonidine. Continue with IV hydration. Also call psych consult ,potassium at bedside. Patient cannot leave AMA. Also check liver ultrasound. Also will put neuro check. Also we will check blood culture Labs and medication were reviewed.. Continue same treatment. Continue with symptomatic treatment. Resume home medication. Monitor lytes and vitals. DVT and GI prophylaxis. Further recommendations depends on the clinical course of the patient DVT prophylaxis: Subcutaneous heparin GI Prophylaxis: Pepcid Prognosis is guarded
[2021-01-21] MEDS: SODIUM CHLORIDE 0.9% 1,000 ML IV SCH ×2 (20:20→23:58)
[2021-01-21] MEDS: HEPARIN SODIUM,PORCINE 5,000 UNIT/ML 1 ML VIAL SQ SCH (20:20)
[2021-01-22] MEDS: NICOTINE 21MG/24HR PATCH TRANSDERM SCH (01:51)
[2021-01-22] MEDS: LORazepam 2 MG/ML INJ IV PRN ×4 (03:33→21:44)
--- NOTE | 2021-01-22 09:08 | US ---
EXAMINATION TYPE: US liver DATE OF EXAM: 01/22/2021 COMPARISON: US 2019 CLINICAL HISTORY: elevated liver enzymes. Patient disoriented Exam done portable. EXAM MEASUREMENTS: Liver Length: 16.8 cm Gallbladder Wall: 0.2 cm CBD: 0.3 cm Right Kidney: 11.2 x 5.2 x 5.0 cm Pancreas: visualized portions wnl, limited by overlying midline bowel gas Liver: mildly coarse echotexture Gallbladder: wnl Evidence for sonographic Avendano's sign: no CBD: visualized portions wnl, limited by overlying bowel gas Right Kidney: wnl IMPRESSION: Findings in the liver are similar to prior exam, correlate for possible hepatocellular di sease, hepatic steatosis, there are some limitations to the exam
[2021-01-22] MEDS: cloNIDine HCL 0.1 MG TAB PO SCH ×4 (09:46→21:39)
[2021-01-22] MEDS: FAMOTIDINE 20 MG TAB PO SCH ×2 (09:46→21:39)
[2021-01-22] MEDS: NAPROXEN 250 MG TAB PO SCH ×2 (09:46→21:38)
[2021-01-22] MEDS: HEPARIN SODIUM,PORCINE 5,000 UNIT/ML 1 ML VIAL SQ SCH ×2 (09:48→21:40)
[2021-01-22 12:03] LABS: Basophils % (A) 1 %; Eosinophils # (A) 0.1 k/uL (0-0.7); Eosinophils % (A) 3 %; HCT 38.4 % (39.0-53.0); HGB 13.1 gm/dL (13.0-17.5); Lymphocytes # (A) 1.5 k/uL (1.0-4.8); Lymphocytes % (A) 32 %; MCH 29.8 pg (25.0-35.0); MCV 87.6 fL (80.0-100.0); Mean Platelet Volume 7.9; Monocytes # (A) 0.4 k/uL (0-1.0); Monocytes % (A) 8 %; Neutrophils # (A) 2.5 k/uL (1.3-7.7); Neutrophils % (A) 54 %; Platelet Count 193 k/uL (150-450); RBC 4.38 m/uL (4.30-5.90); RDW 14.4 % (11.5-15.5); WBC 4.7 k/uL (3.8-10.6)
[2021-01-22 12:25] LABS: ALT 326 U/L (4-49); AST 212 U/L (17-59); African American GFR (CKD) >90 (>60 ml/min/1.73 sqM); Albumin 3.5 g/dL (3.5-5.0); Albumin/Globulin Ratio 0.9; Alkaline Phosphatase 54 U/L (38-126); Anion Gap 7 mmol/L; Blood Urea Nitrogen 9 mg/dL (9-20); Carbon Dioxide 22 mmol/L (22-30); Chloride 112 mmol/L (98-107); Globulin 3.8 g/dL; Glucose 96 mg/dL (74-99); Non-African American GFR(CKD) >90 (>60 ml/min/1.73 sqM); Potassium 4.1 mmol/L (3.5-5.1); Sodium 141 mmol/L (137-145); Total Bilirubin 0.6 mg/dL (0.2-1.3); Total Protein 7.3 g/dL (6.3-8.2)
--- NOTE | 2021-01-22 14:04 | P.CN ---
Psychiatric Consult - . Consult date: 01/22/21 Consult:: 01/22/21 12:58 IDENTIFYING DATA: This patient is a 35-year-old male, who is homeless, unmarried who was admitted medically for polysubstance withdrawal and has a chronic history of polysubstance abuse and schizoaffective disorder. HPI: Patient presented to the hospital yesterday to the emergency department with complaints of stopping his heroin the day previous as he was trying to quit. Patient presented with complaints of feeling shaky and having sweats. Patient has a chronic history of polysubstance abuse and schizoaffective disorder. Patient is also chronically homeless. Consult for psychiatry was placed for "voices to kill self, schizoaffective disorder". Patient was seen at the bedside as he was lying down and appeared to be diaphoretic and tremulous. He states that he does not know why he came to the hospital. He was alert and oriented 2 however did not know what today's date was. He appeared to have poor hygiene and grooming. He states that he has been feeling as he is going through withdrawal from heroin and methamphetamine. He states that he is using approximately 1 g of methamphetamine a day and is using attempts of a gram of heroin IV per day. He states his last use was before coming into the hospital. He claims that his mood is "fine" denies any depression today. He claims his anxiety is fair. He states that his sleep is also fair. He admits to poor appetite. He has poor insight and judgment. Patient admits to using cigarettes and heroin, and methamphetamine as described above. He is denying any alcohol use. Patient is denying any diarrhea, piloerection or any restlessness. He is denying any auditory or visual hallucinations and denied any suicidal or homicidal ideations intent or plan. PAST PSYCHIATRIC HISTORY: The patient has had numerous inpatient psychiatric admissions. His last admission was in October 2020. He has a history of 3 suicide attempts via overdoses and cutting his wrist. He is open with community mental health but noncompliant with treatment. Patient has an active substance use court order for treatment. Patient is currently on Seroquel, Effexor, Cogentin and Vistaril. Patient was previously on Invega Sustenna 234 mg monthly injections and his previous psychiatric hospitalization he was switched onto Haldol Decanoate 100 mg every 7 days I am injection. PMH: Hepatitis C, GERD ALLERGIES: as per EMR CHEMICAL DEPENDENCY HISTORY: as per HPI FAMILY PSYCHIATRIC/SUBSTANCE USE HISTORY: States that "everybody on my mother's side" had mental illness. SOCIAL HISTORY: Patient was born and raised in [facility] and is currently homeless and has no kids is unmarried and completed up to 12th grade. Patient claims that he is unemployed and does not collect any benefits. MENTAL STATUS EXAM: General Appearance: Patient appears to be older than stated age is lethargic, tremulous and diaphoretic. Patient appears to have poor hygiene and grooming. Disheveled appearance. Wearing hospital gown. Behavior: Patient is seated without any agitated behavior. Appears to be anxious and diaphoretic. Speech: Patient's speech is fluent and nonpressured. Mood/Affect: Patient reports their mood is "ok", affect is congruent yet irritable. Suicidality/Homicidality: Patient denies having any homicidal ideation intent or plan. Denies any suicidal thoughts no intent or plan Perceptions: Patient denies any visual hallucinations and denies any auditory hallucinations Though content/process: [place], poverty of content. Poor insight. minimizing his symptoms and drug use. Memory and concentration: AOX2, poor attention span, does not know what today's date is Judgment and insight: poor/impulsive. IMPRESSIONS: Schizoaffective disorder cannabis use disorder opioid use disorder, currently in withdrawal methamphetamine use disorder, currently in withdrawal Nicotine dependence PLAN: -Will continue to follow patient's condition on the medical floors for evaluation of patient will require inpatient psychiatric hospitalization afterwards. -Would recommend the following medication changes/additions: Restart the patient back on Seroquel, 50 mg daily at bedtime +50 mg daily for mood stabilization/psychosis. Restarted patient back on Effexor 37.5 mg daily for mood/anxiety. Continue with clonidine 0.1 mg 4 times a day for opiate withdrawal. Vistaril when necessary for anxiety. We'll need to confirm with [facility] when the last time patient received his Haldol D long-acting injection. -Continue 1:1 sitter for safety. This can be reevaluated tomorrow to see if his can be discontinued Patient is showing no signs of agitation or aggression. -Cannot leave AMA at this time. Patient will need a petition and certification if attempting to leave AMA. -Kier Pleater spoke with patient about substance abuse and the harmful effects on medical and mental health, patient verbally understood and agreed. -Communicated plan to patient's nurse -Will continue to follow along -Please contact with any questions.
[2021-01-22] MEDS: SODIUM CHLORIDE 0.9% 1,000 ML IV SCH (14:22)
[2021-01-22] MEDS ORDERED: ACETAMINOPHEN TAB 325 MG TAB PO PRN (15:06)
--- NOTE | 2021-01-22 16:50 | PN ---
PROGRESS NOTE DATE OF SERVICE: 01/22/2021 This is a 35-year-old gentleman who was admitted with severe low back pain and substance abuse disorders continues to be confused. The patient is apparently going through heroin and possible methamphetamine withdrawal also. The patient has multiple abnormal labs including elevated LFTs. Patient is being closely monitored. Drug screen is also positive for multiple substances. Multiple substances disorder also. The patient is being closely monitored. The patient also has multiple psychosocial issues. Psychology is following the patient closely. PAST MEDICAL HISTORY: Reviewed. REVIEW OF SYMPTOMS: Could not be taken. CURRENT MEDICATIONS: Catapres, Pepcid, Imodium, Naprosyn, Habitrol, Seroquel, Effexor. PHYSICAL EXAMINATION: GENERAL: Patient is stuporous. VITAL SIGNS: Pulse 71, blood pressure 140/64, respirations 20, temperature 97.3, pulse ox 97% on room air. HEENT: Conjunctivae normal. NECK: No jugular venous distention. RESPIRATORY: Breath sounds diminished at the bases. A few scattered rhonchi and crackles. HEART: S1 and S2, muffled. ABDOMEN: Soft, no tenderness. EXTREMITIES: No edema, no swelling. NERVOUS: No focal deficits. LABS: CBC within normal limits and AST 212, ALT is 326. ASSESSMENT: 1. Severe low back pain with failure of outpatient treatment. 2. Substance abuse withdrawal. 3. Change in mental status, acute metabolic encephalopathy, multifactorial. 4. Possibly heroin and methamphetamine withdrawal. 5. IV drug abuse. 6. Transaminitis. 7. Schizoaffective disorder. 8. Homelessness. 9. History of noncompliance with treatment. 10.History of hepatitis C. 11.History of depression and anxiety. 12.Public guardian. RECOMMENDATIONS AND DISCUSSION: Recommend to continue current management and continue symptomatic treatment. Otherwise at this time I recommend continue the current medications, multivitamin supplements. Continue the clonidine. Otherwise, closely follow with advancing diet. Closely follow. MRI of the lumbar spine is recommended. Otherwise closely follow with Psychiatry. Further recommendations to follow. Prognosis is guarded. MMODL / IJN: [id number] /
[2021-01-22] MEDS: QUEtiapine 50 MG TAB PO SCH ×2 (16:52→21:39)
[2021-01-22] MEDS: VENLAFAXINE HCL ER 37.5 MG CAP PO SCH (16:52)
[2021-01-23] MEDS: SODIUM CHLORIDE 0.9% 1,000 ML IV SCH ×3 (03:14→22:21)
[2021-01-23] MEDS: VENLAFAXINE HCL ER 37.5 MG CAP PO SCH (08:06)
[2021-01-23] MEDS: HEPARIN SODIUM,PORCINE 5,000 UNIT/ML 1 ML VIAL SQ SCH ×2 (08:06→22:05)
[2021-01-23] MEDS: cloNIDine HCL 0.1 MG TAB PO SCH ×4 (08:06→22:05)
[2021-01-23] MEDS: QUEtiapine 50 MG TAB PO SCH ×2 (08:06→22:05)
[2021-01-23] MEDS: NICOTINE 21MG/24HR PATCH TRANSDERM SCH (08:06)
[2021-01-23] MEDS: PANTOPRAZOLE 40 MG TABLET PO SCH (08:06)
[2021-01-23] MEDS: NAPROXEN 250 MG TAB PO SCH ×2 (08:06→22:05)
[2021-01-23] MEDS: FAMOTIDINE 20 MG TAB PO SCH ×2 (08:06→22:04)
[2021-01-23 09:26] LABS: ALT 329 U/L (4-49); AST 218 U/L (17-59); African American GFR (CKD) >90 (>60 ml/min/1.73 sqM); Albumin 3.4 g/dL (3.5-5.0); Albumin/Globulin Ratio 0.9; Alkaline Phosphatase 49 U/L (38-126); Anion Gap 8 mmol/L; Blood Urea Nitrogen 14 mg/dL (9-20); Calcium 8.9 mg/dL (8.4-10.2); Carbon Dioxide 18 mmol/L (22-30); Chloride 114 mmol/L (98-107); Globulin 3.7 g/dL; Glucose 69 mg/dL (74-99); Non-African American GFR(CKD) >90 (>60 ml/min/1.73 sqM); Potassium 4.3 mmol/L (3.5-5.1); Sodium 140 mmol/L (137-145); Total Bilirubin 0.7 mg/dL (0.2-1.3); Total Protein 7.1 g/dL (6.3-8.2)
[2021-01-23] MEDS: FOLIC ACID 1 MG TAB PO SCH (11:43)
[2021-01-23] MEDS: MULTIVITAMINS, THERA 1 EACH TAB PO SCH (11:43)
[2021-01-23] MEDS: THIAMINE 100 MG TAB PO SCH (11:43)
[2021-01-23 12:12] LABS: Basophils # (A) 0.04 X 10*3/uL (0.00-0.10); Basophils % (A) 0.9 %; Eosinophils # (A) 0.24 X 10*3/uL (0.04-0.35); Eosinophils % (A) 5.4 %; HCT 38.5 % (39.6-50.0); HGB 12.7 g/dL (13.0-17.0); Lymphocytes # (A) 1.56 X 10*3/uL (0.90-5.00); Lymphocytes % (A) 35.1 %; MCH 29.3 pg (27.0-32.0); MCV 88.7 fL (80.0-97.0); Mean Platelet Volume 11.5 fL (9.5-12.2); Monocytes # (A) 0.51 X 10*3/uL (0.20-1.00); Monocytes % (A) 11.5 %; Neutrophils # (A) 2.09 X 10*3/uL (1.80-7.70); Neutrophils % (A) 46.9 %; Platelet Count 179 X 10*3/uL (140-440); RBC 4.34 X 10*6/uL (4.40-5.60); RDW 14.3 % (11.5-14.5); WBC 4.45 X 10*3/uL (4.50-10.00)
[2021-01-23] MEDS: LORazepam 2 MG/ML INJ IV PRN ×2 (13:00→17:43)
[2021-01-23] MEDS: ALPRAZolam 1 MG TAB PO PRN (14:36)
--- NOTE | 2021-01-23 20:19 | PN ---
PROGRESS NOTE DATE OF SERVICE: 01/23/2021 This is a 35-year-old gentleman who was admitted with severe low back pain and substance abuse disorder. He is being closely monitored at this time. The patient is tremulous, shaky, mildly confused but wanted to go out. The psychiatrist recommended no need of any sitter or inpatient rehab at this time. I recommend the staff to instruct the patient if he wants to go AMA the patient has to be accompanied and guaranteed by a family member or friend to ensure patient's safety at this time. PAST MEDICAL HISTORY: Reviewed. REVIEW OF SYSTEMS: Could not be taken, the patient is confused. CURRENT MEDICATIONS: Tylenol, Xanax, Catapres, Pepcid, folic acid, heparin, Atarax, Imodium, Ativan, Zofran, Protonix, Seroquel, vitamin B1. PHYSICAL EXAM: Patient is conscious, confused. Pulse 70, blood pressure 130/70, respiration 18, temperature 97.2, pulse ox 97% on room air. HEENT: Conjunctivae normal. Oral mucosa moist. NECK: No jugular venous distention. No lymph node enlargement. CARDIOVASCULAR: S1, S2, muffled. No S3, no S4, RESPIRATORY: Diminished breath sounds at the bases. A few scattered rhonchi. ABDOMEN: Soft, nontender. LEGS: No edema, no swelling NERVOUS SYSTEM: Diffusely weak and tremulous. LABS: WBC 4.2, hemoglobin 12.7, AST and ALT noted. ASSESSMENT: 1. Severe low back pain with failure of outpatient treatment. 2. Multiple substance abuse withdrawals. 3. Change in mental status, acute metabolic encephalopathy, multifactorial. 4. Possibly heroin and methamphetamine withdrawal. 5. IV drug abuse. 6. Transaminitis with elevated AST and ALT. 7. Schizoaffective disorder. 8. Homelessness. 9. History of noncompliance with the treatment. 10.History hepatitis C. 11.History of depression and anxiety. 12.Public guardian. RECOMMENDATIONS AND DISCUSSION: In this 35-year-old gentleman who presented with multiple complex medical issues, at this time I recommend to continue the current medication, continue symptomatic treatment. Otherwise, at this time I would recommend contact the public legal guarded about the patient's intentions. Otherwise, Social Work and Case Management to follow the patient closely. Continue the rest of medication. Continue to manage the withdrawal symptoms. Prognosis extremely guarded. Further recommendations to follow. MMODL / IJN: [id number] /
--- NOTE | 2021-01-23 20:24 | CT ---
EXAMINATION TYPE: CT brain wo con DATE OF EXAM: 01/23/2021 COMPARISON: 12/10/19 HISTORY: Altered mental status. CT DLP: 1111.4 mGycm. Automated Exposure Control for Dose Reduction was Utilized. TECHNIQUE: CT scan of the head is performed without contrast. FINDINGS: There is no acute intracranial hemorrhage, mass effect, or midline shift identified. The ventricles and sulci are within normal limits in size. The globes are intact. mild chronic inflamma tion maxillary sinuses r. IMPRESSION: No acute intracranial hemorrhage, mass effect, or midline shift is seen.
[2021-01-24] MEDS: NAPROXEN 250 MG TAB PO SCH (07:55)
[2021-01-24] MEDS: VENLAFAXINE HCL ER 37.5 MG CAP PO SCH (07:55)
[2021-01-24] MEDS: FAMOTIDINE 20 MG TAB PO SCH ×2 (07:55→19:55)
[2021-01-24] MEDS: ALPRAZolam 1 MG TAB PO PRN ×3 (07:55→19:55)
[2021-01-24] MEDS: QUEtiapine 50 MG TAB PO SCH ×2 (07:56→19:55)
[2021-01-24] MEDS: THIAMINE 100 MG TAB PO SCH (07:56)
[2021-01-24] MEDS: PANTOPRAZOLE 40 MG TABLET PO SCH (07:56)
[2021-01-24] MEDS: FOLIC ACID 1 MG TAB PO SCH (07:56)
[2021-01-24] MEDS: NICOTINE 21MG/24HR PATCH TRANSDERM SCH (07:56)
[2021-01-24] MEDS: MULTIVITAMINS, THERA 1 EACH TAB PO SCH (07:56)
[2021-01-24] MEDS: HEPARIN SODIUM,PORCINE 5,000 UNIT/ML 1 ML VIAL SQ SCH ×2 (07:56→19:56)
[2021-01-24] MEDS: cloNIDine HCL 0.1 MG TAB PO SCH ×4 (07:56→19:56)
[2021-01-24] MEDS: LORazepam 2 MG/ML INJ IV PRN ×4 (08:30→21:33)
[2021-01-24] MEDS ORDERED: HALOPERIDOL LACTATE 5 MG/ML 1 ML VIAL IM PRN (09:12)
[2021-01-24 11:44] LABS: Basophils # (A) 0.03 X 10*3/uL (0.00-0.10); Basophils % (A) 0.7 %; Eosinophils # (A) 0.26 X 10*3/uL (0.04-0.35); Eosinophils % (A) 5.7 %; HCT 37.8 % (39.6-50.0); HGB 12.7 g/dL (13.0-17.0); Lymphocytes # (A) 1.56 X 10*3/uL (0.90-5.00); Lymphocytes % (A) 34.2 %; MCH 29.1 pg (27.0-32.0); MCHC 33.6 g/dL (32.0-37.0); MCV 86.7 fL (80.0-97.0); Mean Platelet Volume 11.5 fL (9.5-12.2); Monocytes # (A) 0.57 X 10*3/uL (0.20-1.00); Monocytes % (A) 12.5 %; Neutrophils # (A) 2.13 X 10*3/uL (1.80-7.70); Neutrophils % (A) 46.7 %; Platelet Count 173 X 10*3/uL (140-440); RBC 4.36 X 10*6/uL (4.40-5.60); RDW 14.5 % (11.5-14.5); WBC 4.56 X 10*3/uL (4.50-10.00)
[2021-01-24 12:40] LABS: African American GFR (CKD) 135.1 (60.0-200.0); Albumin 3.6 g/dL (3.80-4.90); Albumin/Globulin Ratio 1.24 (1.60-3.17); Anion Gap 4.8 mmol/L (4.00-12.00); Calcium 8.8 mg/dL (8.7-10.3); Carbon Dioxide 23.2 mmol/L (21.6-31.8); Globulin 2.9 g/dL (1.6-3.3); Non-African American GFR(CKD) 116.6 (60.0-200.0); Potassium 4.3 mmol/L (3.5-5.5); Total Bilirubin 0.4 mg/dL (0.3-1.2); Total Protein 6.5 g/dL (6.2-8.2)
[2021-01-24] MEDS: HALOPERIDOL LACTATE 5 MG/ML 1 ML VIAL IM PRN (16:25)
--- NOTE | 2021-01-24 18:29 | PN ---
PROGRESS NOTE DATE OF SERVICE: 01/24/2021 This 35 -year-old gentleman who was admitted with severe low back pain with failure of outpatient treatment, also had multiple substance abuse withdrawals. The patient is being combative and was needing to get out of the hospital. The legal guardian was contacted and has been recommended to continue treatment as of now. CT scan of the brain did not show any acute abnormality. Past medical history reviewed. REVIEW OF SYSTEMS: Could not be taken, the patient is mildly confused and currently sedated with Haldol at this time. CURRENT MEDICATIONS: Reviewed and include: Tylenol, Xanax, Pepcid, folic acid. Doses reviewed. PHYSICAL EXAMINATION: Patient is sedated. Pulse 68, blood pressure 147/82, respiration 18, temperature 98.4, pulse ox 98% on room air. HEENT: Conjunctivae normal. NECK: No JVD. CARDIOVASCULAR: S1, S2. RESPIRATORY: Breath sounds diminished in the bases. Scattered rhonchi. ABDOMEN: Soft. Nontender. NERVOUS SYSTEM: Could not be tested currently. LAB STUDIES: WBC 12.4, hemoglobin is 12.7, sodium 143, potassium 4.3. Other labs are noted. THC noted. Cultures are negative so far. ASSESSMENT: 1. Severe low back pain with failure of outpatient treatment. 2. Multiple substance abuse issue withdrawal. 3. Change in mental status acute metabolic encephalopathy multifactorial. 4. Possible heroin and methamphetamine withdrawal. 5. IV drug abuse history. 6. Transaminitis, elevated AST, ALT. 7. Schizoaffective disorder. 8. Homelessness. 9. History of noncompliance with treatment. 10.History of hepatitis C. 11.History of depression and anxiety. 12.Public legal guardian. RECOMMENDATIONS AND DISCUSSION: In this 35 -year-old gentleman who presented with multiple complex medical issues, continue current medications, management and symptomatic treatment. Otherwise, continue the Haldol for sedation purposes. Otherwise, the patient was seen by psychiatry. As mentioned earlier, the legal guardian is recommended to continue the treatment. Discussed with the staff. See orders for details. We will monitor the LFTs closely. The prognosis is extremely guarded because of multiple complex medical issues. Further recommendations to follow. MMODL / IJN: [id number] /
[2021-01-24] MEDS: SODIUM CHLORIDE 0.9% 1,000 ML IV SCH (19:56)
[2021-01-25] MEDS: SODIUM CHLORIDE 0.9% 1,000 ML IV SCH (00:14)
[2021-01-25] MEDS: PANTOPRAZOLE 40 MG TABLET PO SCH (09:54)
[2021-01-25] MEDS: MULTIVITAMINS, THERA 1 EACH TAB PO SCH (09:54)
[2021-01-25] MEDS: FOLIC ACID 1 MG TAB PO SCH (09:54)
[2021-01-25] MEDS: NICOTINE 21MG/24HR PATCH TRANSDERM SCH (09:54)
[2021-01-25] MEDS: QUEtiapine 50 MG TAB PO SCH (09:54)
[2021-01-25] MEDS: FAMOTIDINE 20 MG TAB PO SCH (09:54)
[2021-01-25] MEDS: VENLAFAXINE HCL ER 37.5 MG CAP PO SCH (09:55)
[2021-01-25] MEDS: ALPRAZolam 1 MG TAB PO PRN (09:55)
[2021-01-25] MEDS: HEPARIN SODIUM,PORCINE 5,000 UNIT/ML 1 ML VIAL SQ SCH (09:55)
[2021-01-25] MEDS: cloNIDine HCL 0.1 MG TAB PO SCH ×2 (09:55→13:35)
[2021-01-25 10:35] LABS: Basophils # (A) 0.05 X 10*3/uL (0.00-0.10); Basophils % (A) 0.9 %; Eosinophils # (A) 0.35 X 10*3/uL (0.04-0.35); HCT 39.4 % (39.6-50.0); HGB 13.2 g/dL (13.0-17.0); Lymphocytes # (A) 1.81 X 10*3/uL (0.90-5.00); Lymphocytes % (A) 30.8 %; MCH 29.5 pg (27.0-32.0); MCHC 33.5 g/dL (32.0-37.0); MCV 88.1 fL (80.0-97.0); Mean Platelet Volume 12.3 fL (9.5-12.2); Monocytes % (A) 10.2 %; Neutrophils # (A) 3.04 X 10*3/uL (1.80-7.70); Neutrophils % (A) 51.8 %; Platelet Count 157 X 10*3/uL (140-440); RBC 4.47 X 10*6/uL (4.40-5.60); RDW 14.5 % (11.5-14.5); WBC 5.87 X 10*3/uL (4.50-10.00)
[2021-01-25] MEDS: LORazepam 2 MG/ML INJ IV PRN (11:00)
[2021-01-25 11:27] LABS: African American GFR (CKD) 135.1 (60.0-200.0); Albumin 3.6 g/dL (3.80-4.90); Albumin/Globulin Ratio 1.09 (1.60-3.17); Anion Gap 6.3 mmol/L (4.00-12.00); Calcium 8.7 mg/dL (8.7-10.3); Carbon Dioxide 23.7 mmol/L (21.6-31.8); Globulin 3.3 g/dL (1.6-3.3); Non-African American GFR(CKD) 116.6 (60.0-200.0); Potassium 3.8 mmol/L (3.5-5.5); Total Bilirubin 0.4 mg/dL (0.2-1.2); Total Protein 6.9 g/dL (6.2-8.2)
[2021-01-25] MEDS: HALOPERIDOL LACTATE 5 MG/ML 1 ML VIAL IM PRN (12:03)
[2021-01-25] MEDS: THIAMINE 100 MG TAB PO SCH (13:35)
[2021-01-25] MEDS ORDERED: LORazepam 2 MG/ML INJ IM PRN (13:38)
[2021-01-25 14:36] VITALS: BP 149/89; PULSE 85; RESP 18; TEMP 97.5
--- NOTE | 2021-01-25 15:05 | P.PN ---
Progress Note - Text Progress Note Date: 01/25/21 Interval History: Patient was seen today for psychiatric follow-up regarding patient's polysubst ance abuse and schizoaffective disorder. Patients nurse informed technical proposal writer that patient has been more agitated and pulling his IV lines and trying to leave the hospital claiming that he needs to "pay off the drug dealer". Patient was seen at the bedside and continues to have a one-to-one sitter. He continues to appear to be disheveled in appearance and was focused on leaving the hospital. He continues to have very poor insight and judgment and was impulsive during the interview. He claims that he is still anxious and was endorsing irritability. He spoke frequently about needing to pay off his drug dealer without dollars and states that [place]. He appears to have poor impulse control. At this time patient denies any suicidal or homical ideations, intent or plan. Patient denies any auditory, visual hallucinations and denies any paranoia or delusions. He admits to poor sleep and night. Mental Status Exam: General Appearance: Patient appears to be older than stated age is lethargic, thin and uncooperative. Patient appears to have poor hygiene and grooming. Disheveled appearance. Behavior: Patient is seated without any agitated behavior. Appears to be anxious Speech: Patient's speech is fluent and nonpressured. Mood/Affect: Patient reports their mood is "ok", affect is incongruent yet irritable. Suicidality/Homicidality: Patient denies having any homicidal ideation intent or plan. Denies any suicidal thoughts no intent or plan Perceptions: Patient denies any visual hallucinations and denies any auditory hallucinations Though content/process: [place], poverty of content. Poor insight. minimizing his symptoms and drug use. Focused on being discharged. Memory and concentration: AOX2, poor attention span, does not know what today's date is Judgment and insight: poor/impulsive. Assessment Schizoaffective disorder cannabis use disorder opioid use disorder, currently in withdrawal methamphetamine use disorder, currently in withdrawal Nicotine dependence Plan: -At this time patient does meet criteria for inpatient psychiatric hospitalization. -Would recommend the following medication changes/additions: Increased Seroquel, 100 mg bid for mood stabilization/psychosis. Increased Effexor 75 mg daily for mood/anxiety. Continue with clonidine 0.1 mg 4 times a day for opiate withdrawal. Vistaril when necessary for anxiety. We'll need to confirm with [facility] when the last time patient received his Haldol D long-acting injection. Haldol and Ativan IM for agitation/aggression. -Continue 1:1 sitter for safety until patient is transferred to the mental health unit. -Cannot leave AMA at this time. Patient will need a petition and certification if attempting to leave AMA. -Communicated plan to patient's nurse. Once patient is medically cleared and then he can be transferred to the mental health unit. -At this time psychiatry will sign off -Please contact with any questions.
[2021-01-25] MEDS ORDERED: QUEtiapine 100 MG TAB PO SCH (21:00)
--- NOTE | 2021-01-25 22:02 | DS ---
DISCHARGE SUMMARY DATE OF SERVICE: 01/25/2021 FINAL DIAGNOSES: 1. Severe low back pain with failure of outpatient treatment. 2. Multiple substance abuse disorder and withdrawal. 3. Possible psychosis. 4. Change in mental status acute metabolic encephalopathy multifactorial. 5. Possibly heroin methamphetamine withdrawal. 6. IV drug abuse history. 7. Transaminitis, elevated AST/ALT. 8. Schizoaffective disorder. 9. Homelessness. 10.History of noncompliance treatment. 11.History hepatitis C. 12.History of depression, anxiety. 13.Public legal guardianship. DISPOSITION: Patient being discharged, transferred to inpatient psych when the patient medically stable. HISTORY OF PRESENT ILLNESS: This 35 -year-old gentleman with past medical history of multiple medical problems admitted with severe low back pain and multiple other medical issues, treated symptomatically. The patient is having psychotic behavior and the patient was treated in conjunction with Psychiatry. The CT scan of the brain was normal. On exam, vitals are stable. Cardiovascular S1, S2. Abdomen soft. Nervous system: No focal deficits. The patient will be discharged to psych floor for further evaluation and treatment. MEDICATIONS: 1. Clonidine 0.1 p.o. q.i.d. 2. Effexor 75 mg daily. 3. Folic acid 1 mg daily. 4. Habitrol 14. 5. Allopurinol 100 mg Q 7 days. 6. Multivitamins. 7. Protonix 40 mg b.i.d. 8. Seroquel per Psych. 9. Tylenol p.r.n. 10.Vistaril p.r.n. 11.Thiamine 100 mg p.o. daily. Follow up with primary physician closely after discharge. MMODL / IJN: [id number] / MARITA
[2021-01-26] MEDS ORDERED: VENLAFAXINE HCL ER 75 MG CAP PO SCH (09:00)
== END 2021-01-25 18:53 | DRG 896 ==
LOC: EC 19:27 → 4SSUR 20:58 → OBSVTOIN 01-23 01:20
PROVIDERS: ADMIT Hospitalist; ATTEND Hospitalist
DX: F11.93 Opioid use, unspecified with withdrawal (principal); G93.41 Metabolic encephalopathy; F12.10 Cannabis abuse, uncomplicated; F15.23 Other stimulant dependence with withdrawal; F25.9 Schizoaffective disorder, unspecified; F17.210 Nicotine dependence, cigarettes, uncomplicated; G89.29 Other chronic pain; I10 Essential (primary) hypertension; Z59.0 Homelessness; Z79.899 Other long term (current) drug therapy; Z82.49 Family history of ischemic heart disease and other diseases of the circulatory system; Z91.19 Patient's noncompliance with other medical treatment and regimen; Z86.19 Personal history of other infectious and parasitic diseases; M54.5 Low back pain; Z91.5 Personal history of self-harm; F41.8 Other specified anxiety disorders; Z20.822 Contact with and (suspected) exposure to COVID-19; R00.0 Tachycardia, unspecified; R74.01 Elevation of levels of liver transaminase levels; I25.10 Atherosclerotic heart disease of native coronary artery without angina pectoris
CPT/HCPCS: 36415; 70450; 71046; 76705; 80053; 80143; 80179; 80306; 80320; 82550; 84145; 85025; 87040; 87635; 93005; 96361; 96374; 99285

== ENCOUNTER 2021-01-25 18:52 | Inpatient (IN) | payer MEDICAID ==
[2021-01-25] MEDS ORDERED: MAGNESIUM HYDROXIDE 2,400 MG/10 ML CUP PO PRN (19:22)
[2021-01-25] MEDS ORDERED: MAG HYDROX/AL HYDROX/SIMETH 30 ML CUP PO PRN (19:22)
[2021-01-25] MEDS: HALOPERIDOL LACTATE 5 MG/ML 1 ML VIAL IM PRN (19:52)
[2021-01-25] MEDS: QUEtiapine 100 MG TAB PO SCH (19:52)
[2021-01-25] MEDS: cloNIDine HCL 0.1 MG TAB PO SCH (19:52)
[2021-01-26] MEDS: QUEtiapine 100 MG TAB PO SCH ×2 (08:10→20:07)
[2021-01-26] MEDS: cloNIDine HCL 0.1 MG TAB PO SCH ×3 (08:10→20:08)
[2021-01-26] MEDS: PANTOPRAZOLE 40 MG TABLET PO SCH (08:10)
[2021-01-26] MEDS: NICOTINE 14MG/24HR PATCH TRANSDERM SCH (08:10)
[2021-01-26] MEDS: VENLAFAXINE HCL ER 75 MG CAP PO SCH (08:10)
[2021-01-26] MEDS: HALOPERIDOL LACTATE 5 MG/ML 1 ML VIAL IM PRN ×2 (08:55→20:23)
--- NOTE | 2021-01-26 10:24 | P.HP ---
Psychiatric H&P - . H&P Date: 01/26/21 History & Physical: Allergies Allergy/AdvReac Type Severity Reaction Status Date / Time No Known Allergies Allergy Verified 01/20/21 19:40 Vital Signs Temp 97.7 F 01/25/21 19:06 Pulse 92 01/26/21 08:15 Resp 16 01/25/21 19:06 BP 130/84 01/26/21 08:15 Pulse Ox 98 01/25/21 19:06 Intake & Output 01/25/21 01/26/21 01/26/21 18:59 06:59 18:59 Weight 90.718 kg 01/26/21 09:28 IDENTIFYING DATA: This patient is a 35-year-old male, who is homeless, unmarried who was admitted for polysubstance withdrawal and has a chronic history of polysubstance abuse and schizoaffective disorder. HPI: Patient presented initially to the hospital yesterday to the emergency department with complaints of stopping his heroin the day previous as he was trying to quit. Patient presented with complaints of feeling shaky and having sweats. Patient has a chronic history of polysubstance abuse and schizoaffective disorder. Patient is also chronically homeless. Consultation liaison psychiatry saw patient for complaints of "voices to kill self, schizoaffective disorder". Patient was seen initially at the bedside as he was lying down and appeared to be diaphoretic and tremulous. He states that he does not know why he came to the hospital. He was alert and oriented 2 however did not know what today's date was. He appeared to have poor hygiene and grooming. He states that he has been feeling as he is going through withdrawal from heroin and methamphetamine. He states that he is using approximately 1 g of methamphetamine a day and is using attempts of a gram of heroin IV per day. He states his last use was before coming into the hospital. He has poor insight and judgment. Patient went through polysubstance withdrawal and gradually became more agitated and paranoid believing that he owed money to a drug dealer and wanted to be released from the hospital. Patient required Im when necessary medications while on the medical floors and patient was transferred last night to inpatient psychiatry. Patient was seen this morning wandering the hallways after receiving medications and was agreeable to speak to technical proposal writer. He continues to demonstrate very poor insight and judgment and appears to be disheveled in appearance. He claims that his mood is "depressed" and spoke about thoughts of self-harm however did not describe an intent or plan today. He states that at this time he is not hearing any voices talking to him. He claims that he would like to go to rehab upon discharge. He claims that he is feeling paranoid at times on the unit however was not able to describe any delusions. Patient admits to using cigarettes and heroin, and methamphetamine as described above. He is denying any alcohol use. Patient is denying any diarrhea, piloerection or any restlessness. He is denying any auditory or visual hallucinations and denied any suicidal or homicidal ideations intent or plan. PAST PSYCHIATRIC HISTORY: The patient has had numerous inpatient psychiatric admissions. His last admission was in October 2020. He has a history of 3 suicide attempts via overdoses and cutting his wrist. He is open with [facility] but noncompliant with treatment. Patient has an active substance use court order for treatment. Patient is currently on Seroquel, Effexor, Cogentin and Vistaril. Patient was previously on Invega Sustenna 234 mg monthly injections and his previous psychiatric hospitalization he was switched onto Haldol Decanoate 100 mg every 7 days IM injection. PMH: Hepatitis C, GERD ALLERGIES: as per EMR CHEMICAL DEPENDENCY HISTORY: as per HPI FAMILY PSYCHIATRIC/SUBSTANCE USE HISTORY: States that "everybody on my mother's side" had mental illness. SOCIAL HISTORY: Patient was born and raised in [place] [facility] and is currently homeless and has no kids is unmarried and completed up to 12th grade. Patient claims that he is unemployed and does not collect any benefits. MENTAL STATUS EXAM: General Appearance: Patient appears to be older than stated age is alert, attempts to cooperate. Patient appears to have poor hygiene and grooming. Disheveled appearance. Wearing hospital gown. Behavior: Patient is seated without any agitated behavior. Appears to be anxious Speech: Patient's speech is fluent and nonpressured. Monotone. Mood/Affect: Patient reports their mood is "depressed", affect is congruent and constricted Suicidality/Homicidality: Patient denies having any homicidal ideation intent or plan. Denies any suicidal thoughts no intent or plan Perceptions: Patient denies any visual hallucinations and denies any auditory hallucinations Though content/process: [place], poverty of content. Poor insight. minimizing his drug use. Memory and concentration: AOX2, poor attention span, does not know what today's date is Judgment and insight: poor/impulsive. STRENGTHS/WEAKNESSES: strength is that patient is resilient. Weakness is that patient has poor judgment and is impulsive INTELLECT: average IMPRESSIONS: Schizoaffective disorder cannabis use disorder opioid use disorder, currently in withdrawal methamphetamine use disorder, currently in withdrawal Nicotine dependence PLAN: -Patient is admitted under voluntary status to MHU for stabilization of psychiatric symptoms and safety. Patient has signed adult voluntary form and medication consent and is placed in patient's chart. Patient is currently on a court order. -Medications : Will start patient on Seroquel 100 mg twice a day for mood stabilization/psychosis, Effexor 75 mg daily for mood/anxiety, Vistaril 25 mg twice a day when necessary for anxiety. Catapres 0.1 mg 3 times a day for opiate withdrawal symptoms and we'll continue to titrate down. -Haldol IM PRN for agitation/aggression -Started thiamine, MVM for etoh use -Patient was counselled on substance abuse and desired to cut back on use. Patient was fairly superficial about this however did agree to go to rehab upon discharge. -Patient was informed of the risks, benefits and side effects of the medication and patient verbally consented to taking the medications. Patient signed med consent form and was placed in chart. -Internal Medicine consult to perform medical evaluation and physical. -NRT - nicotine patch -SW on board for discharge planning. Encourage patient to participate in groups to work on coping skills. Patient has an active court order for treatment. Patient claims that he is willing to go to rehab upon discharge.
[2021-01-26] MEDS: hydrOXYzine pamoate 25 MG CAP PO PRN ×2 (10:35→18:56)
[2021-01-26] MEDS: ACETAMINOPHEN TAB 325 MG TAB PO PRN (11:36)
[2021-01-26] MEDS: THIAMINE 100 MG TAB PO SCH (11:37)
[2021-01-26] MEDS: FOLIC ACID 1 MG TAB PO SCH (11:37)
[2021-01-26] MEDS: MULTIVITAMINS, THERA 1 EACH TAB PO SCH (11:37)
--- NOTE | 2021-01-26 14:16 | CONS ---
CONSULTATION DATE OF SERVICE: 01/26/2021 REASON FOR CONSULTATION: Advice regarding multiple substance abuse and other multiple medical issues requested by Psychiatry. HISTORY OF PRESENT ILLNESS: This 35-year-old gentleman with a past medical history of multiple medical problems including multiple substance abuse was recently admitted to medical floor in the [facility] with multiple substance abuse and possible withdrawal with change in mental status. Patient also had significant features of schizoaffective disorder and the patient has been transferred to psych floor for further evaluation and treatment at this time. There is no history of fever or rigors. No history of headache, loss of consciousness or seizures. Patient is able to ambulate. Some slight tremors are noted at this time, which is much improved compared to the medical floor. PAST MEDICAL HISTORY: History of substance abuse disorder, hypertension, liver disease, hepatitis C, anxiety, depression. MEDICATIONS: Medications prior to admission include: Vistaril, Catapres, Effexor, vitamin B1, Seroquel, Protonix, albuterol, multivitamins, Haldol, Tylenol. ALLERGIES: None. FAMILY HISTORY: History of CAD in father. SOCIAL HISTORY: History of heroin, marijuana, smoking. REVIEW OF SYSTEMS: ENT: No diminished hearing or diminished vision. CARDIOVASCULAR SYSTEM: No angina. RESPIRATORY SYSTEM: No cough or hemoptysis. GI: No nausea. : No dysuria. NERVOUS SYSTEM: As mentioned earlier. ALLERGY/IMMUNOLOGY: No asthma or hay fever. MUSCULOSKELETAL: As mentioned earlier. HEMATOLOGY: No history of anemia. ENDOCRINE: No history of diabetes or hypothyroidism. CONSTITUTIONAL: As mentioned earlier. DERMATOLOGY: Negative. RHEUMATOLOGY: Negative. PSYCHIATRY: As mentioned earlier. PHYSICAL EXAMINATION: The patient is alert and oriented x3. Pulse 98, blood pressure 133/76, respirations 16, temperature 97.7, pulse ox 98% on room air. HEENT: Conjunctivae normal. Oral mucosa moist. NECK: No jugular venous distention. No lymph node enlargement. CARDIOVASCULAR: S1, S2 muffled. No S3, no S4. RESPIRATORY: Breath sounds diminished at the bases. A few scattered rhonchi and crackles. ABDOMEN: Soft, nontender. LEGS: No edema, no swelling. NERVOUS SYSTEM: No focal deficits. LABS: Labs are awaited. ASSESSMENT: 1. Status post multiple substance abuse disorder and withdrawals. 2. Possible psychosis and schizoaffective disorder. 3. Change in mental status, recent acute metabolic encephalopathy, improved. 4. Severe low back pain with failure of outpatient treatment, improved. 5. Possible heroin, methamphetamine withdrawal. 6. IV drug abuse history. 7. Transaminitis, elevated AST, ALT. 8. Homelessness. 9. History of noncompliance with treatment. 10.History hepatitis C. 11.History of depression, anxiety. 12.Public legal guardianship. RECOMMENDATIONS AND DISCUSSION: Recommend to continue current medications, continue symptomatic treatment. Current labs are not available. The LFTs elevated previously but showing significant improvement. I would recommend a CMP maybe tomorrow and make sure that LFTs are steadily improving. I would also recommend outpatient followup with primary physician. Otherwise we will continue to monitor, continue the rest of medications. Continue the Clonidine for now. Monitor blood pressure closely. Thank you Dr. Ruvalcaba for letting us participate in the care of this patient. MMODL / KYLEN: [id number] /
[2021-01-26] MEDS: haloperidoL 5 MG TAB PO PRN (14:40)
[2021-01-26 14:42] LABS: ALT 295 U/L (4-49); AST 232 U/L (17-59); African American GFR (CKD) >90 (>60 ml/min/1.73 sqM); Albumin 3.7 g/dL (3.5-5.0); Alkaline Phosphatase 48 U/L (38-126); Blood Urea Nitrogen 11 mg/dL (9-20); Calcium 9.4 mg/dL (8.4-10.2); Carbon Dioxide 22 mmol/L (22-30); Chloride 108 mmol/L (98-107); Glucose 180 mg/dL (74-99); Non-African American GFR(CKD) >90 (>60 ml/min/1.73 sqM); Total Bilirubin 0.4 mg/dL (0.2-1.3); Total Protein 7.5 g/dL (6.3-8.2)
[2021-01-26 15:14] LABS: Anion Gap 11 mmol/L; Sodium 141 mmol/L (137-145)
[2021-01-27] MEDS: cloNIDine HCL 0.1 MG TAB PO SCH (07:58)
[2021-01-27] MEDS: NICOTINE 14MG/24HR PATCH TRANSDERM SCH (07:58)
[2021-01-27] MEDS: QUEtiapine 100 MG TAB PO SCH (07:58)
[2021-01-27] MEDS: PANTOPRAZOLE 40 MG TABLET PO SCH (07:58)
[2021-01-27] MEDS: VENLAFAXINE HCL ER 75 MG CAP PO SCH (07:58)
[2021-01-27] MEDS: ACETAMINOPHEN TAB 325 MG TAB PO PRN ×2 (07:59→16:46)
[2021-01-27] MEDS: hydrOXYzine pamoate 25 MG CAP PO PRN ×2 (07:59→11:51)
[2021-01-27] MEDS: FOLIC ACID 1 MG TAB PO SCH (08:27)
[2021-01-27] MEDS: THIAMINE 100 MG TAB PO SCH (08:28)
[2021-01-27] MEDS: MULTIVITAMINS, THERA 1 EACH TAB PO SCH (08:28)
[2021-01-27] MEDS: HALOPERIDOL LACTATE 5 MG/ML 1 ML VIAL IM PRN ×2 (08:28→14:15)
--- NOTE | 2021-01-27 10:54 | P.PN ---
Progress Note - Text Progress Note Date: 01/27/21 Interval History: Patient was seen wandering the hallways and was directable and agreeable to dami gary with story writer in the office. Patient continues to have a disheveled appearance and has poor hygiene and grooming. He continues to refuse to shower. He states that he was not able to sleep fairly last night was requesting to have the Seroquel increased. He continues to be med seeking and preoccupied with his medications. He claims that his anxiety is still elevated however states that his mood is getting better. He claims that he has not been going to any groups at all and is disinterested. He states that he is mainly isolating himself on the unit. Today he is denying hearing any voices or suicidal thoughts intent or plan. At this time patient denies any homical ideations, intent or plan. Patient denies any auditory, visual hallucinations and denies any paranoia or delusions. Patient denies any side effects from the medications and has been compliant with meds. Mental Status Exam: General Appearance: Patient appears to be older than stated age is alert, attempts to cooperate. Patient appears to have poor hygiene and grooming. Disheveled appearance. Wearing hospital gown. Behavior: Patient is seated without any agitated behavior. Speech: Patient's speech is fluent and nonpressured. Monotone. Mood/Affect: Patient reports their mood is "a bit better", affect is congruent and constricted Suicidality/Homicidality: Patient denies having any homicidal ideation intent or plan. Denies any suicidal thoughts no intent or plan Perceptions: Patient denies any visual hallucinations and denies any auditory hallucinations Though content/process: [place], poverty of content. Poor insight. minimizing his drug use and preoccupied with medications. Memory and concentration: AOX3, improving attention span. Judgment and insight: Chronically poor/impulsive, improving mildly Assessment Schizoaffective disorder cannabis use disorder opioid use disorder, currently in withdrawal methamphetamine use disorder, currently in withdrawal Nicotine dependence Plan: -Patient continues to meet criteria for inpatient psychiatric admission for symptom stabilization and safety. Patient has not signed adult voluntary form and medication consent and was placed in patient's chart. -Medications: Increased Seroquel 100 mg + 200 mg a day for mood stabilization/psychosis, increased Effexor 150 mg daily for mood/anxiety, increased Vistaril 50 mg every 8 hours when necessary for anxiety. Catapres was discontinued today. Patient last received Haldol D long-acting injection on 01/11/21 at an outside facility for 150 mg and will likely need another dose prior to discharge. -Haldol IM and PO PRN for agitation/aggression -Continue with thiamine, MVM for etoh use -When necessary Ativan and Haldol for agitation/aggression. -NRT - nicotine patch -SW on board for discharge planning. Encouraged the patient to participate in milieu. Currently awaiting deferral with business attorney and court date. Patient claims that he is willing to go to rehab upon discharge.
[2021-01-27 15:23] LABS: HIV 2 AB Non-Reactive (Non-Reactive); HIV AB P24 Non-Reactive (Non-Reactive); HIV P24 AG Non-Reactive (Non-Reactive)
[2021-01-27] MEDS: QUEtiapine 200 MG TAB PO SCH (20:29)
[2021-01-28] MEDS: NICOTINE 14MG/24HR PATCH TRANSDERM SCH (07:34)
[2021-01-28] MEDS: VENLAFAXINE HCL ER 150 MG CAP PO SCH (07:35)
[2021-01-28] MEDS: QUEtiapine 100 MG TAB PO SCH (07:35)
[2021-01-28] MEDS: PANTOPRAZOLE 40 MG TABLET PO SCH (07:35)
[2021-01-28] MEDS: HALOPERIDOL LACTATE 5 MG/ML 1 ML VIAL IM PRN ×2 (08:34→13:34)
--- NOTE | 2021-01-28 08:57 | P.PN ---
Progress Note - Text Progress Note Date: 01/28/21 Interval History: Patient was seen wandering the hallways and was directable and agreeable to dami gary with literary writer in the office. Patient appeared to have mild improvement in his hygiene and grooming today. He continues to have a constricted affect however was fairly cooperative during the interview. He offered no significant complaints overnight. He states that he slept approximately 4-5 hours. He continues to state that his mood has been improving on the unit. He continues to be med seeking and preoccupied with his medications. He claims that his anxiety is still elevated. He claims that he has not been going to any groups at all and is disinterested in them. He claims that he has been walking on the unit more during the day. He is denying hearing any voices or suicidal thoughts intent or plan. At this time patient denies any homical ideations, intent or plan. Patient denies any auditory, visual hallucinations and denies any paranoia or delusions. Patient denies any side effects from the medications and has been compliant with meds. Mental Status Exam: General Appearance: Patient appears to be older than stated age is alert, attempts to cooperate. Patient appears to have mildly improving hygiene and grooming. Wearing hospital gown. Behavior: Patient is seated without any agitated behavior. Speech: Patient's speech is fluent and nonpressured. Monotone. Mood/Affect: Patient reports their mood is "better", affect is congruent and constricted Suicidality/Homicidality: Patient denies having any homicidal ideation intent or plan. Denies any suicidal thoughts no intent or plan Perceptions: Patient denies any visual hallucinations and denies any auditory hallucinations Though content/process: [place], poverty of content. Poor insight. Memory and concentration: AOX3, improving attention span. Judgment and insight: Chronically poor/impulsive, improving mildly Assessment Schizoaffective disorder cannabis use disorder opioid use disorder, currently in withdrawal methamphetamine use disorder, currently in withdrawal Nicotine dependence Plan: -Patient continues to meet criteria for inpatient psychiatric admission for symptom stabilization and safety. Patient has not signed adult voluntary form and medication consent and was placed in patient's chart. -Medications: Continue with Seroquel 100 mg + 200 mg a day for mood stabilization/psychosis, continuous Effexor 150 mg daily for mood/anxiety, continuous Vistaril 50 mg every 8 hours when necessary for anxiety. Patient last received Haldol D long-acting injection on 01/11/21 at an outside facility for 150 mg and will likely need another dose prior to discharge. -Haldol IM and PO PRN for agitation/aggression -Continue with thiamine, MVM for etoh use -When necessary Ativan and Haldol for agitation/aggression. -NRT - nicotine patch -SW on board for discharge planning. Encouraged the patient to participate in milieu. Patient's deferral with trial attorney is set for today. Patient claims that he is willing to go to rehab upon discharge and currently awaiting an intake date.
[2021-01-28] MEDS: hydrOXYzine pamoate 25 MG CAP PO PRN ×2 (09:39→16:46)
[2021-01-28] MEDS: MULTIVITAMINS, THERA 1 EACH TAB PO SCH (12:06)
[2021-01-28] MEDS: FOLIC ACID 1 MG TAB PO SCH (12:06)
[2021-01-28] MEDS: THIAMINE 100 MG TAB PO SCH (12:06)
[2021-01-28] MEDS: ACETAMINOPHEN TAB 325 MG TAB PO PRN (16:27)
[2021-01-28] MEDS: haloperidoL 5 MG TAB PO PRN (16:28)
[2021-01-28] MEDS: QUEtiapine 200 MG TAB PO SCH (20:01)
[2021-01-29] MEDS: ACETAMINOPHEN TAB 325 MG TAB PO PRN ×4 (01:52→17:52)
[2021-01-29] MEDS: haloperidoL 5 MG TAB PO PRN ×3 (01:52→14:27)
[2021-01-29] MEDS: PANTOPRAZOLE 40 MG TABLET PO SCH (08:18)
[2021-01-29] MEDS: NICOTINE 14MG/24HR PATCH TRANSDERM SCH (08:18)
[2021-01-29] MEDS: hydrOXYzine pamoate 25 MG CAP PO PRN ×2 (08:19→17:52)
[2021-01-29] MEDS: QUEtiapine 100 MG TAB PO SCH (08:19)
[2021-01-29] MEDS: VENLAFAXINE HCL ER 150 MG CAP PO SCH (08:19)
--- NOTE | 2021-01-29 09:43 | P.PN ---
Progress Note - Text Progress Note Date: 01/29/21 Interval History: Patient was seen wandering the hallways and was directable and agreeable to s peak with engineering writer in the office. Patient appears to be anxious this morning and states that she wants to be put back on Ativan. He continues to be med seeking. He states that his mood is "fine" denies any depression today. Patient appeared to have mild improvement in his hygiene and grooming. He continues to have a constricted affect however was fairly cooperative during the interview. He offered no significant complaints overnight. He states that he slept approximately 5 hours. He claims that he has not been going to any groups at all and is disinterested in them. He continues to state that he wants to go to rehab upon discharge. He is denying hearing any voices or suicidal thoughts intent or plan. At this time patient denies any homical ideations, intent or plan. Patient denies any auditory, visual hallucinations and denies any paranoia or delusions. Patient denies any side effects from the medications and has been compliant with meds. Mental Status Exam: General Appearance: Patient appears to be older than stated age is alert, attempts to cooperate. Patient appears to have mildly improving hygiene and grooming. Wearing hospital gown. Behavior: Patient is seated without any agitated behavior. Speech: Patient's speech is fluent and nonpressured. Monotone. Mood/Affect: Patient reports their mood is "ok", affect is congruent and constricted Suicidality/Homicidality: Patient denies having any homicidal ideation intent or plan. Denies any suicidal thoughts no intent or plan Perceptions: Patient denies any visual hallucinations and denies any auditory hallucinations Though content/process: Thatcher, poverty of content. Poor insight. Focused on his medications. Memory and concentration: AOX3, improving attention span. Judgment and insight: Chronically poor/impulsive, improving mildly Assessment Schizoaffective disorder cannabis use disorder opioid use disorder, currently in withdrawal methamphetamine use disorder, currently in withdrawal Nicotine dependence Plan: -Patient continues to meet criteria for inpatient psychiatric admission for symptom stabilization and safety. Patient has not signed adult voluntary form and medication consent and was placed in patient's chart. -Medications: Continue with Seroquel 100 mg + 200 mg a day for mood stabilization/psychosis. I added when necessary 25 mg of Seroquel as needed for anxiety. Added BuSpar 15 mg twice a day for anxiety, this can be increased over the weekend as needed. continue Effexor 150 mg daily for mood/anxiety, continuous Vistaril 50 mg every 8 hours when necessary for anxiety. Patient last received Haldol D long-acting injection on 01/11/21 at an outside facility for 150 mg and will likely need another dose prior to discharge. -Haldol IM and PO PRN for agitation/aggression -Continue with thiamine, MVM for etoh use -When necessary Ativan and Haldol for agitation/aggression. -NRT - nicotine patch -SW on board for discharge planning. Encouraged the patient to participate in milieu. Patient deferred as agreeable to continue with treatment. Patient claims that he is willing to go to rehab upon discharge and currently awaiting an intake date.
[2021-01-29] MEDS: busPIRone HCl 5 MG TAB PO SCH ×2 (09:45→20:01)
[2021-01-29] MEDS: QUEtiapine 25 MG TAB PO PRN (10:01)
[2021-01-29] MEDS: MULTIVITAMINS, THERA 1 EACH TAB PO SCH (11:53)
[2021-01-29] MEDS: FOLIC ACID 1 MG TAB PO SCH (11:53)
[2021-01-29] MEDS: THIAMINE 100 MG TAB PO SCH (11:53)
[2021-01-29] MEDS: QUEtiapine 200 MG TAB PO SCH (20:01)
[2021-01-30] MEDS: busPIRone HCl 5 MG TAB PO SCH ×2 (08:10→21:20)
[2021-01-30] MEDS: VENLAFAXINE HCL ER 150 MG CAP PO SCH (08:10)
[2021-01-30] MEDS: NICOTINE 14MG/24HR PATCH TRANSDERM SCH (08:10)
[2021-01-30] MEDS: PANTOPRAZOLE 40 MG TABLET PO SCH (08:10)
[2021-01-30] MEDS: QUEtiapine 100 MG TAB PO SCH (08:10)
[2021-01-30] MEDS: haloperidoL 5 MG TAB PO PRN ×2 (08:11→14:17)
[2021-01-30] MEDS: hydrOXYzine pamoate 25 MG CAP PO PRN ×2 (08:12→17:52)
[2021-01-30] MEDS: ACETAMINOPHEN TAB 325 MG TAB PO PRN ×2 (08:12→17:52)
[2021-01-30] MEDS: QUEtiapine 25 MG TAB PO PRN (09:46)
[2021-01-30] MEDS: THIAMINE 100 MG TAB PO SCH (12:33)
[2021-01-30] MEDS: FOLIC ACID 1 MG TAB PO SCH (12:33)
[2021-01-30] MEDS: MULTIVITAMINS, THERA 1 EACH TAB PO SCH (12:33)
--- NOTE | 2021-01-30 16:55 | P.PN ---
Progress Note - Text Progress Note Date: 01/30/21 This patient is originally came to Hospital with the following diagnosis: Schizoaffective disorder cannabis use disorder opioid use disorder, currently in withdrawal methamphetamine use disorder, currently in withdrawal Nicotine dependence He stated that he came to the hospital 5 days ago. He stated that he was having the suicidal thoughts and did not want to live anymore. He stated he has been in psychiatric hospitals many times before. He stated that he thought that he owed somebody money. He denies any paranoid thoughts at this time. His affect is flat and he is mostly quiet and stays to himself. He does not talk to anybody and is a very isolative. He denies any hallucinations or paranoid delusions. He is taking his medication and denies having any side effects from medication. He will continue to be maintained on his treatment plan.
[2021-01-30] MEDS: QUEtiapine 200 MG TAB PO SCH (21:20)
[2021-01-31] MEDS: VENLAFAXINE HCL ER 150 MG CAP PO SCH (08:17)
[2021-01-31] MEDS: busPIRone HCl 5 MG TAB PO SCH (08:17)
[2021-01-31] MEDS: PANTOPRAZOLE 40 MG TABLET PO SCH (08:17)
[2021-01-31] MEDS: NICOTINE 14MG/24HR PATCH TRANSDERM SCH (08:17)
[2021-01-31] MEDS: QUEtiapine 100 MG TAB PO SCH (08:17)
[2021-01-31] MEDS: hydrOXYzine pamoate 25 MG CAP PO PRN (08:18)
[2021-01-31] MEDS: haloperidoL 5 MG TAB PO PRN (08:18)
[2021-01-31] MEDS: THIAMINE 100 MG TAB PO SCH (12:25)
[2021-01-31] MEDS: MULTIVITAMINS, THERA 1 EACH TAB PO SCH (12:25)
[2021-01-31] MEDS: FOLIC ACID 1 MG TAB PO SCH (12:25)
[2021-01-31] MEDS: QUEtiapine 25 MG TAB PO PRN (12:25)
--- NOTE | 2021-01-31 13:04 | P.PN ---
Progress Note - Text Progress Note Date: 01/31/21 This patient was seen in his room. He was talking to me from under the sheets. He is laying in the bed most of the time and does not want to talk to anybody. Patient presented initially to the hospital yesterday to the emergency department with complaints of stopping his heroin the day previous as he was trying to quit. Patient presented with complaints of feeling shaky and having sweats. Patient has a chronic history of polysubstance abuse and schizoaffective disorder. He is still going through withdrawal and he has no motivation, very poor energy and is quite withdrawn. Volume off his speech is very low and speaks in monosyllable sentences. He has severe psychomotor retardation. Patient has very poor insight into his problems. His judgment is impaired by chronicity of his illness and substance abuse.
[2021-01-31 16:35] VITALS: RESP 20
[2021-01-31 17:16] VITALS: BP 143/71; PULSE 96; TEMP 98.9
[2021-01-31] MEDS ORDERED: SODIUM CHLORIDE 0.9% 1,000 ML IV SCH (17:45)
[2021-01-31 18:14] LABS: Glucose,Whole Blood 116 mg/dL (75-99)
== END 2021-01-31 18:00 | disposition short-term general hospital (02) | DRG 896 ==
LOC: 3MHU 19:00
PROVIDERS: ADMIT Psychiatry & Neurology Psychiatry; ATTEND Psychiatry & Neurology Psychiatry
DX: F11.23 Opioid dependence with withdrawal (principal); G93.41 Metabolic encephalopathy; R45.851 Suicidal ideations; F25.9 Schizoaffective disorder, unspecified; F15.10 Other stimulant abuse, uncomplicated; F12.10 Cannabis abuse, uncomplicated; F32.9 Major depressive disorder, single episode, unspecified; F41.9 Anxiety disorder, unspecified; I10 Essential (primary) hypertension; B19.20 Unspecified viral hepatitis C without hepatic coma; M54.5 Low back pain; K21.9 Gastro-esophageal reflux disease without esophagitis; R74.01 Elevation of levels of liver transaminase levels; Z91.5 Personal history of self-harm; F17.200 Nicotine dependence, unspecified, uncomplicated; Z79.899 Other long term (current) drug therapy; Z91.19 Patient's noncompliance with other medical treatment and regimen; Z56.0 Unemployment, unspecified; Z59.0 Homelessness; Z81.8 Family history of other mental and behavioral disorders; Z82.49 Family history of ischemic heart disease and other diseases of the circulatory system
CPT/HCPCS: 80053; 87390; 93005

== ENCOUNTER 2021-01-31 17:14 | Inpatient (IN) | payer MEDICAID, OTHER ==
[2021-01-31] MEDS ORDERED: SUCCINYLCHOLINE CHLORIDE VIAL 200 MG/10 ML VIAL IV ONE (18:30)
[2021-01-31] MEDS ORDERED: ROCURONIUM 10 MG/ML (5 ML VIAL) IV ONE (18:30)
[2021-01-31 19:00] LABS: Basophils # (A) 0.1 k/uL (0-0.2); Basophils % (A) 1 %; Eosinophils # (A) 0.1 k/uL (0-0.7); Eosinophils % (A) 1 %; HCT 46.4 % (39.0-53.0); HGB 15.3 gm/dL (13.0-17.5); Lymphocytes # (A) 4.1 k/uL (1.0-4.8); Lymphocytes % (A) 38 %; MCV 87.9 fL (80.0-100.0); Mean Platelet Volume 7.8; Monocytes # (A) 0.6 k/uL (0-1.0); Monocytes % (A) 6 %; Neutrophils # (A) 5.5 k/uL (1.3-7.7); Neutrophils % (A) 51 %; Platelet Count 275 k/uL (150-450); RBC 5.28 m/uL (4.30-5.90); RDW 14.1 % (11.5-15.5); WBC 10.8 k/uL (3.8-10.6)
[2021-01-31 19:09] LABS: Magnesium 2.3 mg/dL (1.6-2.3)
[2021-01-31] MEDS ORDERED: propofoL 100 ML IV ONE (19:18)
[2021-01-31 19:22] LABS: Glucose,Whole Blood 113 mg/dL (75-99)
--- NOTE | 2021-01-31 19:29 | P.EN ---
35 year old man with meth abuse, schizoaffective disorder who was admitted for MHU for these issues; was transferred to [facility] after ingesting 350 mL of hand seed specialist bottle. Patient's mentation rapidly changed, was no longer withdrawing to pain in all 4 extremities at the time of my evaluation. I suppose patient in response to an A Team which was called due to this change in mentation. Otherwise, patient's vital signs were stable, 93% on 2 L nasal cannula, 123/87, heart rate 65. Patient appeared to be perfusing all 4 extremities well, chest expansion was symmetric. Labs were not back at the time of my evaluation. No imaging was available to review. At this time, poison control had been contacted, however, at that time patient's mental status was a and O 3, and has rapidly deteriorated since his transfer to the floor. Assessment/plan: Patient was be transferred to the ICU, where he'll be intubated. OG tube to be placed after intubation. ICU, nephrology contacted. ICU recommended a gastric lavage status post OG tube. I did place orders for serum osmolality as well as volatile screen. Briefly, the contents of hand seed specialist outside of ethanol include: Isopropyl alcohol, propylene glycol, chart alcohol, propanolol, and others. I spent 31 minutes of critical care time with this patient
[2021-01-31] MEDS ORDERED: CHLORHEXIDINE GLUCONATE 15 ML CUP MUCOUS MEM ONE (19:49)
[2021-01-31 19:52] LABS: ALT 360 U/L (4-49); AST 237 U/L (17-59); African American GFR (CKD) >90 (>60 ml/min/1.73 sqM); Albumin 4.8 g/dL (3.5-5.0); Alkaline Phosphatase 57 U/L (38-126); Anion Gap 18 mmol/L; Blood Urea Nitrogen 19 mg/dL (9-20); Calcium 9.7 mg/dL (8.4-10.2); Carbon Dioxide 21 mmol/L (22-30); Chloride 106 mmol/L (98-107); Glucose 123 mg/dL (74-99); Non-African American GFR(CKD) >90 (>60 ml/min/1.73 sqM); Potassium 4.1 mmol/L (3.5-5.1); Sodium 145 mmol/L (137-145); Total Bilirubin 0.4 mg/dL (0.2-1.3); Total Protein 9.1 g/dL (6.3-8.2)
[2021-01-31] MEDS ORDERED: NALOXONE 0.4 MG/ML 1 ML VIAL IV PRN (20:05)
[2021-01-31 20:17] LABS: ABG Base Excess -1.4 mmol/L; ABG HCO3 24 mmol/L (21-25); ABG Oxygen Saturation 99.8 % (94-97); ABG PCO2 44 mmHg (35-45); ABG PH 7.35 (7.35-7.45); ABG PO2 >400 mmHg (83-108); ABG TCO2 26 mmol/L (19-24); Allen Test Performed? Yes
--- NOTE | 2021-01-31 20:18 | XR ---
EXAMINATION TYPE: XR chest 1V portable DATE OF EXAM: 01/31/2021 COMPARISON: 01/20/2021 HISTORY: Respiratory failure TECHNIQUE: FINDINGS: There is nasogastric tube in the stomach. Endotracheal tube is 6 cm from the catherine. Lungs are clear. There is no heart failure. There are chest leads. Heart and mediastinum appear normal. IMPRESSION: No active cardiopulmonary disease. Normal heart.
[2021-01-31] MEDS: SODIUM CHLORIDE 0.9% 1,000 ML IV SCH (20:45)
[2021-01-31] MEDS: LACTATED RINGERS 1,000 ML IV SCH (20:45)
[2021-01-31 20:48] LABS: Appearance,Urine Clear (Clear); Bilirubin,Urine Negative (Negative); Blood,Urine Trace (Negative); Color,Urine Light Yellow; Glucose,Urine (UA) Negative (Negative); Ketones,Urine Negative (Negative); Leukocyte Esterase,Urine Negative (Negative); Nitrite,Urine Negative (Negative); PH, Urine 5.5 (5.0-8.0); Protein,Urine Negative (Negative); Specific Gravity,Urine 1.006 (1.001-1.035); Urobilinogen,Urine <2.0 mg/dL (<2.0); WBC,Urine <1 /hpf (0-5)
[2021-01-31 21:04] LABS: ALT 382 U/L (4-49); AST 254 U/L (17-59); African American GFR (CKD) >90 (>60 ml/min/1.73 sqM); Alkaline Phosphatase 61 U/L (38-126); Anion Gap 17 mmol/L; Blood Urea Nitrogen 17 mg/dL (9-20); Calcium 9.4 mg/dL (8.4-10.2); Carbon Dioxide 22 mmol/L (22-30); Chloride 106 mmol/L (98-107); Glucose 113 mg/dL (74-99); Non-African American GFR(CKD) >90 (>60 ml/min/1.73 sqM); Potassium 4.3 mmol/L (3.5-5.1); Sodium 145 mmol/L (137-145); Total Bilirubin 0.4 mg/dL (0.2-1.3); Total Protein 9.4 g/dL (6.3-8.2)
[2021-01-31 21:44] LABS: Basophils # (A) 0.1 k/uL (0-0.2); Basophils % (A) 1 %; Eosinophils # (A) 0.1 k/uL (0-0.7); Eosinophils % (A) 1 %; HCT 47.5 % (39.0-53.0); HGB 16.2 gm/dL (13.0-17.5); Lymphocytes # (A) 3.4 k/uL (1.0-4.8); Lymphocytes % (A) 40 %; MCH 30.2 pg (25.0-35.0); MCHC 34.1 g/dL (31.0-37.0); MCV 88.5 fL (80.0-100.0); Mean Platelet Volume 8.1; Monocytes # (A) 0.4 k/uL (0-1.0); Monocytes % (A) 5 %; Neutrophils # (A) 4.2 k/uL (1.3-7.7); Neutrophils % (A) 50 %; Platelet Count 262 k/uL (150-450); RBC 5.37 m/uL (4.30-5.90); RDW 13.8 % (11.5-15.5); WBC 8.4 k/uL (3.8-10.6)
[2021-01-31 23:10] LABS: Magnesium 2.2 mg/dL (1.6-2.3)
[2021-01-31 23:13] LABS: ALT 383 U/L (4-49); AST 260 U/L (17-59); African American GFR (CKD) >90 (>60 ml/min/1.73 sqM); Albumin 4.8 g/dL (3.5-5.0); Alkaline Phosphatase 61 U/L (38-126); Anion Gap 15 mmol/L; Blood Urea Nitrogen 15 mg/dL (9-20); Calcium 9.2 mg/dL (8.4-10.2); Carbon Dioxide 23 mmol/L (22-30); Chloride 110 mmol/L (98-107); Glucose 123 mg/dL (74-99); Non-African American GFR(CKD) >90 (>60 ml/min/1.73 sqM); Potassium 4.2 mmol/L (3.5-5.1); Sodium 148 mmol/L (137-145); Total Bilirubin 0.3 mg/dL (0.2-1.3); Total Protein 9.2 g/dL (6.3-8.2)
[2021-02-01] MEDS: PANTOPRAZOLE 40 MG/10 ML VIAL IVP SCH ×2 (00:16→08:44)
[2021-02-01] MEDS: LACTATED RINGERS 1,000 ML IV SCH ×4 (03:00→23:30)
[2021-02-01 03:19] LABS: Ethanol >400 mg/dL (Negative); Isopropanol Negative (Negative)
[2021-02-01] MEDS: SODIUM CHLORIDE 0.9% 1,000 ML IV SCH ×2 (03:57→15:58)
[2021-02-01 03:59] LABS: Basophils # (A) 0.1 k/uL (0-0.2); Basophils % (A) 1 %; Eosinophils # (A) 0.1 k/uL (0-0.7); Eosinophils % (A) 1 %; HCT 44.8 % (39.0-53.0); HGB 14.9 gm/dL (13.0-17.5); Lymphocytes # (A) 3.5 k/uL (1.0-4.8); Lymphocytes % (A) 30 %; MCH 29.6 pg (25.0-35.0); MCHC 33.3 g/dL (31.0-37.0); MCV 88.8 fL (80.0-100.0); Mean Platelet Volume 7.5; Monocytes # (A) 0.5 k/uL (0-1.0); Monocytes % (A) 5 %; Neutrophils # (A) 7.4 k/uL (1.3-7.7); Neutrophils % (A) 62 %; Platelet Count 287 k/uL (150-450); RBC 5.05 m/uL (4.30-5.90); WBC 11.9 k/uL (3.8-10.6)
[2021-02-01 04:10] LABS: Basophils # (A) 0.1 k/uL (0-0.2); Basophils % (A) 1 %; Eosinophils # (A) 0.1 k/uL (0-0.7); Eosinophils % (A) 1 %; HGB 16.9 gm/dL (13.0-17.5); Lymphocytes # (A) 2.4 k/uL (1.0-4.8); Lymphocytes % (A) 34 %; MCH 30.1 pg (25.0-35.0); MCHC 33.9 g/dL (31.0-37.0); Mean Platelet Volume 9.3; Monocytes # (A) 0.2 k/uL (0-1.0); Monocytes % (A) 3 %; Neutrophils # (A) 4.1 k/uL (1.3-7.7); Neutrophils % (A) 57 %; Platelet Count 282 k/uL (150-450); RBC 5.62 m/uL (4.30-5.90); RDW 13.9 % (11.5-15.5); WBC 7.1 k/uL (3.8-10.6)
[2021-02-01 04:11] LABS: ALT 336 U/L (4-49); AST 221 U/L (17-59); African American GFR (CKD) >90 (>60 ml/min/1.73 sqM); Albumin 4.5 g/dL (3.5-5.0); Alkaline Phosphatase 55 U/L (38-126); Anion Gap 11 mmol/L; Blood Urea Nitrogen 14 mg/dL (9-20); Calcium 8.7 mg/dL (8.4-10.2); Carbon Dioxide 23 mmol/L (22-30); Chloride 111 mmol/L (98-107); Glucose 104 mg/dL (74-99); Non-African American GFR(CKD) >90 (>60 ml/min/1.73 sqM); Potassium 4.1 mmol/L (3.5-5.1); Sodium 145 mmol/L (137-145); Total Bilirubin 0.2 mg/dL (0.2-1.3); Total Protein 8.5 g/dL (6.3-8.2)
[2021-02-01 05:15] LABS: ABG HCO3 25 mmol/L (21-25); ABG Oxygen Saturation 99.6 % (94-97); ABG PCO2 43 mmHg (35-45); ABG PH 7.36 (7.35-7.45); ABG PO2 155 mmHg (83-108); ABG TCO2 26 mmol/L (19-24); Allen Test Performed? Yes
--- NOTE | 2021-02-01 08:19 | XR ---
EXAMINATION TYPE: XR chest 1V portable DATE OF EXAM: 02/01/2021 COMPARISON: 01/31/2021 HISTORY: Tube placement TECHNIQUE: Single frontal view of the chest is obtained. FINDINGS: ET and NG tube stable and in good position. Right-sided perihilar infiltrate noted. No siz able pleural effusion or pneumothorax. No overt failure. Heart size normal. IMPRESSION: 1. Right perihilar infiltrate new from prior exam.
[2021-02-01] MEDS: ENOXAPARIN 40 MG/0.4 ML SYRINGE SQ SCH (08:43)
--- NOTE | 2021-02-01 09:36 | P.NPCON ---
History of Present Illness - Reason for Consult acute renal failure - History of Present Illness Reason for consultation: Hand therapist physical ingestion History of present illness: Patient is a 35-year-old male seen in renal consultation for hand therapist physical ingestion. Patient was admitted in the inpatient psychiatric unit and has history of schizoaffective disorder. Patient apparently ingested 350 mL of hand therapist physical yesterday. His mentation rapidly changed and he was subsequently transferred outside of the psychiatric unit. He was then subsequently more unresponsive and was then transferred to the intensive care unit. He is currently intubated. OG tube was placed. Patient's serum alcohol level was 439 initially and was down to 375 as of last night. His at the level, level was over 400. Methyl alcohol, isopropyl alcohol and acetone level was negative. Poison control was immediately notified and are following the case closely. Patient's renal function is at baseline. Creatinine 0.91 as of this morning. Bicarb level 23. Patient has not been acidotic so far except for a bicarb level of 21 which was yesterday at 6:30 PM. Patient's AST and ALT peaked at 260 and 383 and were to 21 at 336 as of this morning. Nonoliguric. Hemodynamically stable. He is currently receiving LR at 1 50 mL an hour. Vital signs are stable. General: The patient appeared well nourished and normally developed. HEENT: Intubated. LUNGS: Breath sounds decreased. HEART: Rate and Rhythm are regular. ABDOMEN: Soft, nontender. EXTREMITITES: No edema. Past Medical History Past Medical History: GERD/Reflux, Hypertension, Liver Disease Additional Past Medical History / Comment(s): Hepatitis C, DDD, back pain, bilateral carpel tunnel syndrome. He reports that he has heart disease that was found when he had kidney problems but he denies having a stress test or cardiac catheterization. History of Any Multi-Drug Resistant Organisms: None Reported MDRO Source:: unknown Past Surgical History: No Surgical Hx Reported Past Anesthesia/Blood Transfusion Reactions: Unable to Obtain Additional Past Anesthesia/Blood Transfusion Reaction / Comment(s): Pt states he has never had surgery. Past Psychological History: Unable to Obtain, Anxiety, Depression Smoking Status: Current every day smoker Past Alcohol Use History: None Reported Past Drug Use History: Heroin, Methamphetamine - Past Family History Father Family Medical History: Coronary Artery Disease (CAD) Additional Family Medical History / Comment(s): Father is . Mother Family Medical History: Rheumatoid Arthritis (RA) Additional Family Medical History / Comment(s): Mother is . Medications and Allergies Home Medications Medication Instructions Recorded Confirmed Type Acetaminophen Tab [Tylenol] 650 mg PO Q4HR PRN tab 05/20/20 01/31/21 Rx Nicotine 14Mg/24Hr Patch [Habitrol] 1 patch TRANSDERM DAILY 14 Days 05/20/20 01/31/21 Rx patch Haloperidol Decanoate [Haldol D] 100 mg IM Q7D #1 vial 10/28/20 01/31/21 Rx QUEtiapine [SEROquel] 50 mg PO DAILY #30 tab 10/28/20 01/31/21 Rx QUEtiapine [SEROquel] 100 mg PO HS #30 tab 10/28/20 01/31/21 Rx Venlafaxine HCl ER [Effexor XR] 75 mg PO DAILY #30 cap.er.24h 10/28/20 01/31/21 Rx hydrOXYzine pamoate [Vistaril] 25 mg PO BID PRN 30 Days cap 10/28/20 01/31/21 Rx Folic Acid 1 mg PO DAILY@1200 tab 01/25/21 01/31/21 Rx Multivitamins, Thera [Multivitamin 1 each PO DAILY@1200 tab 01/25/21 01/31/21 Rx (formulary)] Pantoprazole [Protonix] 40 mg PO AC-BRKFST tablet. 01/25/21 01/31/21 Rx Thiamine [Vitamin B-1] 100 mg PO DAILY@1200 tab 01/25/21 01/31/21 Rx cloNIDine HCL [Catapres] 0.1 mg PO QID #0 tab 01/25/21 01/31/21 Rx Allergies Allergy/AdvReac Type Severity Reaction Status Date / Time No Known Allergies Allergy Verified 01/20/21 19:40 Physical Exam Vitals: Vital Signs Temp Pulse Pulse Resp BP BP Pulse Ox 02/01/21 07:00 98.2 F 98 21 114/76 96 02/01/21 06:00 99.7 F H 102 H 23 132/80 96 02/01/21 05:00 112 H 26 H 120/76 95 02/01/21 04:00 99.9 F H 115 H 26 H 142/87 95 02/01/21 03:00 99.7 F H 121 H 28 H 117/73 96 02/01/21 02:00 108 H 24 116/77 95 02/01/21 01:00 98.6 F 108 H 25 H 122/75 96 02/01/21 00:47 105 H 23 122/75 96 01/31/21 23:00 103 H 22 120/75 95 01/31/21 22:00 98 24 120/77 96 01/31/21 21:00 99 20 126/81 95 01/31/21 20:00 98.2 F 112 H 20 144/115 96 01/31/21 17:45 99 137/86 96 01/31/21 17:30 101 H 106/71 96 01/31/21 17:15 98.1 F 102 H 109/73 Intake and Output 01/31/21 02/01/21 02/01/21 22:59 06:59 14:59 Intake Total 763.322 5556.255 250 Output Total 2125 1145 100 Balance -1669.996 270.255 150 Intake: IV 450 1200 150 Lactated Ringers 1,000 ml 450 1200 150 @ 150 mls/hr IV .Q6H40M KATARZYNA Rx#:[id number] Intake, IV Titration 5.004 215.255 100 Amount propofoL 1,000 mg In 5.004 215.255 100 Empty Bag 1 bag @ Titrate IV .Q0M KATARZYNA Rx#: [id number] Output: Urine 1975 1145 100 Oral Regurgitation 150 Other: Voiding Method Indwelling Catheter Indwelling Catheter Weight 83.4 kg 86 kg ABP, PAP, CO, CI - Last 8 Hours Arterial Blood Pressure 131/65 Arterial Blood Pressure 128/65 Arterial Blood Pressure 149/77 Arterial Blood Pressure 141/73 Arterial Blood Pressure 150/84 Arterial Blood Pressure 126/68 Results - Lab Results Most recent lab results ABG pH 7.36 (7.35-7.45) 02/01/21 05:11 ABG pCO2 43 mmHg (35-45) 02/01/21 05:11 ABG pO2 155 mmHg (83-108) H 02/01/21 05:11 ABG HCO3 25 mmol/L (21-25) 02/01/21 05:11 ABG O2 Saturation 99.6 % (94-97) H 02/01/21 05:11 Calcium 8.7 mg/dL (8.4-10.2) 02/01/21 03:45 Magnesium 2.2 mg/dL (1.6-2.3) 01/31/21 22:35 02/01/21 03:45 02/01/21 03:45 Assessment and Plan Plan: Assessment: 1. Hand therapist physical ingestion on January 31. Patient's serum alcohol level was initially 439 and then down to 375 as of last night. His at the level ColoScreen was over 400. Metabolic alcohol, isopropyl alcohol and acetone levels negative. Patient does not have a positive osmolal gap (with ethanol level being >400). No significant acidosis. Renal function normal. Good urine output. Poison control is closely following. 2. Schizoaffective disorder. 3. Transaminitis related to ethanol ingestion. Trending down. Plan: Maintain aggressive IV hydration. Check volatile alcohols screen again. Poison control closely following. Continue to monitor for need for renal replacement therapy. Thank you for the consultation. I will continue to follow the patient with you during his hospital stay.
--- NOTE | 2021-02-01 10:08 | P.CNPUL ---
History of Present Illness Consult date: 02/01/21 Requesting physician: Abelardo Potts Reason for consult: other Chief complaint: Acute respiratory failure. History of present illness: 35-year-old male, admitted to the mental health unit on January 25 for schizoaffective disorder. The patient was admitted to the intensive care unit on January 31, and intubated on January 31 for acute hypoxemic respiratory failure. He apparently drank 350 mL of hand rewards consultant, and came in with alcohol level of greater than 400. The patient currently remains on the mechanical ventilator. Settings include volume assist control, rate 26, tidal volume 400, FiO2 40%, PEEP of 5. Blood gases show a PaO2 of 155, a PaCO2 of 43, and a pH is 7.36. The patient's FiO2 will be dropped down to 25%. The patient's currently on propofol at 75 mcg/kg/m, lactated Ringer's at 150 mL an hour, saline at KVO, and tube feedings have not yet been started. The patient will be placed on Seroquel, and we'll start Precedex as well. We will do a daily eruption of sedation, and see if we can get this patient extubated. The patient will be placed on pressure support of 5, and CPAP of 5. Currently, the patient's sedated. No additional history could be obtained from the patient. White count is 11.9, hemoglobin 14.9, hematocrit 44.8, and platelet count is normal. Sodium is 145, potassium 4.1, chloride 111, CO2 23, anion gap is 11, with a BUN of 14 and creatinine 0.91. His serum osmolarity is 370. Most recent serum alcohol is 375. It will be repeated this morning. Review of Systems No history could be obtained from this patient because the patient is currently intubated, mechanically ventilated, and sedated. Past Medical History Past Medical History: GERD/Reflux, Hypertension, Liver Disease Additional Past Medical History / Comment(s): Hepatitis C, DDD, back pain, kaylee ateral carpel tunnel syndrome. He reports that he has heart disease that was found when he had kidney problems but he denies having a stress test or cardiac catheterization. History of Any Multi-Drug Resistant Organisms: None Reported MDRO Source:: unknown Past Surgical History: No Surgical Hx Reported Past Anesthesia/Blood Transfusion Reactions: Unable to Obtain Additional Past Anesthesia/Blood Transfusion Reaction / Comment(s): Pt states he has never had surgery. Past Psychological History: Unable to Obtain, Anxiety, Depression Smoking Status: Current every day smoker Past Alcohol Use History: None Reported Past Drug Use History: Heroin, Methamphetamine - Past Family History Father Family Medical History: Coronary Artery Disease (CAD) Additional Family Medical History / Comment(s): Father is . Mother Family Medical History: Rheumatoid Arthritis (RA) Additional Family Medical History / Comment(s): Mother is . Medications and Allergies Home Medications Medication Instructions Recorded Confirmed Type Acetaminophen Tab [Tylenol] 650 mg PO Q4HR PRN tab 05/20/20 01/31/21 Rx Nicotine 14Mg/24Hr Patch [Habitrol] 1 patch TRANSDERM DAILY 14 Days 05/20/20 01/31/21 Rx patch Haloperidol Decanoate [Haldol D] 100 mg IM Q7D #1 vial 10/28/20 01/31/21 Rx QUEtiapine [SEROquel] 50 mg PO DAILY #30 tab 10/28/20 01/31/21 Rx QUEtiapine [SEROquel] 100 mg PO HS #30 tab 10/28/20 01/31/21 Rx Venlafaxine HCl ER [Effexor XR] 75 mg PO DAILY #30 cap.er.24h 10/28/20 01/31/21 Rx hydrOXYzine pamoate [Vistaril] 25 mg PO BID PRN 30 Days cap 10/28/20 01/31/21 Rx Folic Acid 1 mg PO DAILY@1200 tab 01/25/21 01/31/21 Rx Multivitamins, Thera [Multivitamin 1 each PO DAILY@1200 tab 01/25/21 01/31/21 Rx (formulary)] Pantoprazole [Protonix] 40 mg PO AC-BRKFST tablet. 01/25/21 01/31/21 Rx Thiamine [Vitamin B-1] 100 mg PO DAILY@1200 tab 01/25/21 01/31/21 Rx cloNIDine HCL [Catapres] 0.1 mg PO QID #0 tab 01/25/21 01/31/21 Rx Allergies Allergy/AdvReac Type Severity Reaction Status Date / Time No Known Allergies Allergy Verified 01/20/21 19:40 Physical Exam Osteopathic Statement: *. No significant issues noted on an osteopathic structural exam other than those noted in the History and Physical/Consult. Vitals: Vital Signs Temp Pulse Pulse Resp BP BP Pulse Ox 02/01/21 07:00 98.2 F 98 21 114/76 96 02/01/21 06:00 99.7 F H 102 H 23 132/80 96 02/01/21 05:00 112 H 26 H 120/76 95 02/01/21 04:00 99.9 F H 115 H 26 H 142/87 95 02/01/21 03:00 99.7 F H 121 H 28 H 117/73 96 02/01/21 02:00 108 H 24 116/77 95 02/01/21 01:00 98.6 F 108 H 25 H 122/75 96 02/01/21 00:47 105 H 23 122/75 96 01/31/21 23:00 103 H 22 120/75 95 01/31/21 22:00 98 24 120/77 96 01/31/21 21:00 99 20 126/81 95 01/31/21 20:00 98.2 F 112 H 20 144/115 96 01/31/21 17:45 99 137/86 96 01/31/21 17:30 101 H 106/71 96 01/31/21 17:15 98.1 F 102 H 109/73 Intake and Output 01/31/21 02/01/21 02/01/21 22:59 06:59 14:59 Intake Total 451.912 1239.255 250 Output Total 2125 1145 100 Balance -1669.996 270.255 150 Intake: IV 450 1200 150 Lactated Ringers 1,000 ml 450 1200 150 @ 150 mls/hr IV .Q6H40M KATARZYNA Rx#:[id number] Intake, IV Titration 5.004 215.255 100 Amount propofoL 1,000 mg In 5.004 215.255 100 Empty Bag 1 bag @ Titrate IV .Q0M KATARZYNA Rx#: [id number] Output: Urine 1975 1145 100 Oral Regurgitation 150 Other: Voiding Method Indwelling Catheter Indwelling Catheter Weight 83.4 kg 86 kg ABP, PAP, CO, CI - Last 8 Hours Arterial Blood Pressure 131/65 Arterial Blood Pressure 128/65 Arterial Blood Pressure 149/77 Arterial Blood Pressure 141/73 Arterial Blood Pressure 150/84 Arterial Blood Pressure 126/68 No acute distress, currently sedated, with an orally placed endotracheal tube and NG tube. HEENT examination is grossly unremarkable. Neck supple full range of motion. No adenopathy or thyromegaly. Cardiovascular examination reveals a regular rhythm rate. Heart rate is 98 bpm. S1-S2 normal. Lungs reveal relatively clear breath sounds. A few scattered rhonchi are noted. No wheezes or crackles. Breath sounds equal bilaterally. Abdomen soft bowel sounds are heard. Extremities are intact. No cyanosis clubbing or edema. Skin without rash. Neurologic examination cannot be adequately assessed. Results - Laboratory Findings CBC and BMP: 02/01/21 03:45 02/01/21 03:45 ABG ABG pH 7.36 (7.35-7.45) 02/01/21 05:11 ABG pCO2 43 mmHg (35-45) 02/01/21 05:11 ABG pO2 155 mmHg (83-108) H 02/01/21 05:11 ABG O2 Saturation 99.6 % (94-97) H 02/01/21 05:11 Abnormal lab findings: Abnormal Labs 01/31/21 01/31/21 01/31/21 18:33 18:33 18:33 WBC 10.8 H ABG pO2 ABG Total CO2 ABG O2 Saturation Sodium Chloride Carbon Dioxide Glucose POC Glucose (mg/dL) Osmolality 406 H* AST ALT Total Protein Urine Blood Serum Alcohol 439 H* Ethyl Alcohol Screen 01/31/21 01/31/21 01/31/21 18:33 18:33 19:20 WBC ABG pO2 ABG Total CO2 ABG O2 Saturation Sodium Chloride Carbon Dioxide 21 L Glucose 123 H POC Glucose (mg/dL) 113 H Osmolality AST 237 H ALT 360 H Total Protein 9.1 H Urine Blood Serum Alcohol Ethyl Alcohol Screen >400 H* 01/31/21 01/31/21 01/31/21 20:15 20:15 20:28 WBC ABG pO2 >400 H ABG Total CO2 26 H ABG O2 Saturation 99.8 H Sodium Chloride Carbon Dioxide Glucose 113 H POC Glucose (mg/dL) Osmolality 400 H* AST 254 H ALT 382 H Total Protein 9.4 H Urine Blood Trace H Serum Alcohol Ethyl Alcohol Screen 01/31/21 01/31/21 01/31/21 22:35 22:35 22:35 WBC ABG pO2 ABG Total CO2 ABG O2 Saturation Sodium 148 H Chloride 110 H Carbon Dioxide Glucose 123 H POC Glucose (mg/dL) Osmolality 398 H* AST 260 H ALT 383 H Total Protein 9.2 H Urine Blood Serum Alcohol 375 H* Ethyl Alcohol Screen 02/01/21 02/01/21 02/01/21 03:45 03:45 03:45 WBC 11.9 H ABG pO2 ABG Total CO2 ABG O2 Saturation Sodium Chloride 111 H Carbon Dioxide Glucose 104 H POC Glucose (mg/dL) Osmolality 370 H* AST 221 H ALT 336 H Total Protein 8.5 H Urine Blood Serum Alcohol Ethyl Alcohol Screen 02/01/21 05:11 WBC ABG pO2 155 H ABG Total CO2 26 H ABG O2 Saturation 99.6 H Sodium Chloride Carbon Dioxide Glucose POC Glucose (mg/dL) Osmolality AST ALT Total Protein Urine Blood Serum Alcohol Ethyl Alcohol Screen - Diagnostic Findings Chest x-ray: image reviewed Assessment and Plan Assessment: Acute hypoxemic respiratory failure, secondary to ingestion of hand rewards consultant, and an alcohol level that was greater than 400. Intubation and mechanical ventilation on January 31, for respiratory failure, and inability to protect his airway. History of schizoaffective disorder, for which the patient was admitted to mental health unit, on January 25. Acute alcoholic hepatitis. Anion gap metabolic acidosis, resolved. Plan: Plan dated 02/01/2021. The patient will have a daily eruption of sedation. We'll stop the propofol in place patient on Precedex. We will also add some Seroquel to his regimen. The patient will be given a weaning trial with pressure support of 5 and CPAP of 5. He may or may not be ready to be extubated. We are waiting for a follow-up alcohol level. His last alcohol level was 375. Additional recommendations suggestions are forthcoming. Labs, x-rays, and medications reviewed. Chest x- ray shows a minimal right perihilar infiltrate. This may relate aspiration. We will continue to follow, and make recommendations were appropriate. Prognosis is guarded. Time with Patient: Greater than 30
[2021-02-01] MEDS: QUEtiapine 50 MG TAB PO SCH (10:18)
[2021-02-01] MEDS: IPRATROPIUM-ALBUTEROL 3 ML NEB INHALATION SCH ×3 (11:25→20:25)
--- NOTE | 2021-02-01 12:05 | P.HPIM ---
History of Present Illness This is a pleasant 55 years old male with past medical history of schizoaffective disorder, substance abuse and noncompliance with treatment. History of IV drug abuse He was recently hospitalized to the general medical floor 01/21-01/25, next day he was admitted to the mental health unit on 01/26 for signs and symptoms of heroin withdrawal. He is homeless, unmarried, history of DUI, unemployed and he has a public guardian. On admission he was described as disheveled and has poor grooming eye contact appropriate and speech minimal. Yesterday afternoon patient grabbed about the HAND graduate assistant and ran in the hallway, and alarm was found into the patient has consumed over 270 to 350 mL of 540 milliliter bottle. Patient stated to staff that he dropped the head graduate assistant because he was grieving for alcohol but not trying to kill himself Patient a team was called yesterday because he was altered mental status, diaphoretic, minimally responsive to pain and shallow breathing, it was intubated and sent to the ICU. his PEEP is 5, FiO2 25%, still sedated with propofol history on vent. Review of Systems n/a Past Medical History Past Medical History: GERD/Reflux, Hypertension, Liver Disease Additional Past Medical History / Comment(s): Hepatitis C, DDD, back pain, bilateral carpel tunnel syndrome. He reports that he has heart disease that was found when he had kidney problems but he denies having a stress test or cardiac catheterization. History of Any Multi-Drug Resistant Organisms: None Reported MDRO Source:: unknown Past Surgical History: No Surgical Hx Reported Past Anesthesia/Blood Transfusion Reactions: Unable to Obtain Additional Past Anesthesia/Blood Transfusion Reaction / Comment(s): Pt states he has never had surgery. Past Psychological History: Unable to Obtain, Anxiety, Depression Smoking Status: Current every day smoker Past Alcohol Use History: None Reported Past Drug Use History: Heroin, Methamphetamine - Past Family History Father Family Medical History: Coronary Artery Disease (CAD) Additional Family Medical History / Comment(s): Father is . Mother Family Medical History: Rheumatoid Arthritis (RA) Additional Family Medical History / Comment(s): Mother is . Medications and Allergies Home Medications Medication Instructions Recorded Confirmed Type Acetaminophen Tab [Tylenol] 650 mg PO Q4HR PRN tab 05/20/20 01/31/21 Rx Nicotine 14Mg/24Hr Patch [Habitrol] 1 patch TRANSDERM DAILY 14 Days 05/20/20 01/31/21 Rx patch Haloperidol Decanoate [Haldol D] 100 mg IM Q7D #1 vial 10/28/20 01/31/21 Rx QUEtiapine [SEROquel] 50 mg PO DAILY #30 tab 10/28/20 01/31/21 Rx QUEtiapine [SEROquel] 100 mg PO HS #30 tab 10/28/20 01/31/21 Rx Venlafaxine HCl ER [Effexor XR] 75 mg PO DAILY #30 cap.er.24h 10/28/20 01/31/21 Rx hydrOXYzine pamoate [Vistaril] 25 mg PO BID PRN 30 Days cap 10/28/20 01/31/21 Rx Folic Acid 1 mg PO DAILY@1200 tab 01/25/21 01/31/21 Rx Multivitamins, Thera [Multivitamin 1 each PO DAILY@1200 tab 01/25/21 01/31/21 Rx (formulary)] Pantoprazole [Protonix] 40 mg PO AC-[id number] tablet. 01/25/21 01/31/21 Rx Thiamine [Vitamin B-1] 100 mg PO DAILY@1200 tab 01/25/21 01/31/21 Rx cloNIDine HCL [Catapres] 0.1 mg PO QID #0 tab 01/25/21 01/31/21 Rx Allergies Allergy/AdvReac Type Severity Reaction Status Date / Time No Known Allergies Allergy Verified 01/20/21 19:40 Physical Exam Vitals: Vital Signs Temp Pulse Pulse Resp BP BP Pulse Ox 02/01/21 07:00 98.2 F 98 21 114/76 96 02/01/21 06:00 99.7 F H 102 H 23 132/80 96 02/01/21 05:00 112 H 26 H 120/76 95 02/01/21 04:00 99.9 F H 115 H 26 H 142/87 95 02/01/21 03:00 99.7 F H 121 H 28 H 117/73 96 02/01/21 02:00 108 H 24 116/77 95 02/01/21 01:00 98.6 F 108 H 25 H 122/75 96 02/01/21 00:47 105 H 23 122/75 96 01/31/21 23:00 103 H 22 120/75 95 01/31/21 22:00 98 24 120/77 96 01/31/21 21:00 99 20 126/81 95 01/31/21 20:00 98.2 F 112 H 20 144/115 96 01/31/21 17:45 99 137/86 96 01/31/21 17:30 101 H 106/71 96 01/31/21 17:15 98.1 F 102 H 109/73 Intake and Output 01/31/21 02/01/21 02/01/21 22:59 06:59 14:59 Intake Total 045.415 1944.255 150 Output Total 2125 1145 100 Balance -1669.996 270.255 50 Intake: IV 450 1200 150 Lactated Ringers 1,000 ml 450 1200 150 @ 150 mls/hr IV .Q6H40M [facility] Rx#:[id number] Intake, IV Titration 5.004 215.255 Amount propofoL 1,000 mg In 5.004 215.255 Empty Bag 1 bag @ Titrate IV .Q0M [facility] Rx#: [id number] Output: Urine 1975 1145 100 Oral Regurgitation 150 Other: Voiding Method Indwelling Catheter Indwelling Catheter Weight 83.4 kg 86 kg ABP, PAP, CO, CI - Last 8 Hours Arterial Blood Pressure 131/65 Arterial Blood Pressure 128/65 Arterial Blood Pressure 149/77 Arterial Blood Pressure 141/73 Arterial Blood Pressure 150/84 Arterial Blood Pressure 126/68 Arterial Blood Pressure 128/70 Arterial Blood Pressure 128/70 GENERAL: The patient is intubated and sedated HEENT: Pupils are round and equally reacting to light. EOMI. No scleral icterus. No conjunctival pallor. Normocephalic, atraumatic. No pharyngeal erythema. No thyromegaly. CARDIOVASCULAR: S1 and S2 present. No murmurs, rubs, or gallops. PULMONARY: Chest is clear to auscultation, no wheezing or crackles. ABDOMEN: Soft, nontender, nondistended, normoactive bowel sounds. No palpable organomegaly. MUSCULOSKELETAL: No joint swelling or deformity. EXTREMITIES: No cyanosis, clubbing, or pedal edema. NEUROLOGICAL: Gross neurological examination did not reveal any focal deficits. SKIN: No rashes. no petechiae. Results CBC & Chem 7: 02/01/21 03:45 02/01/21 03:45 Labs: Abnormal Lab Results - Last 24 Hours (Table) 01/31/21 01/31/21 01/31/21 Range/Units 18:33 18:33 18:33 WBC 10.8 H (3.8-10.6) k/uL ABG pO2 (83-108) mmHg ABG Total CO2 (19-24) mmol/L ABG O2 Saturation (94-97) % Sodium (137-145) mmol/L Chloride (98-107) mmol/L Carbon Dioxide (22-30) mmol/L Glucose (74-99) mg/dL POC Glucose (mg/dL) (75-99) mg/dL Osmolality 406 H* (280-301) mosm/kg AST (17-59) U/L ALT (4-49) U/L Total Protein (6.3-8.2) g/dL Urine Blood (Negative) Serum Alcohol 439 H* mg/dL Ethyl Alcohol Screen (Negative) mg/dL 01/31/21 01/31/21 01/31/21 Range/Units 18:33 18:33 19:20 WBC (3.8-10.6) k/uL ABG pO2 (83-108) mmHg ABG Total CO2 (19-24) mmol/L ABG O2 Saturation (94-97) % Sodium (137-145) mmol/L Chloride (98-107) mmol/L Carbon Dioxide 21 L (22-30) mmol/L Glucose 123 H (74-99) mg/dL POC Glucose (mg/dL) 113 H (75-99) mg/dL Osmolality (280-301) mosm/kg AST 237 H (17-59) U/L ALT 360 H (4-49) U/L Total Protein 9.1 H (6.3-8.2) g/dL Urine Blood (Negative) Serum Alcohol mg/dL Ethyl Alcohol Screen >400 H* (Negative) mg/dL 01/31/21 01/31/21 01/31/21 Range/Units 20:15 20:15 20:28 WBC (3.8-10.6) k/uL ABG pO2 >400 H (83-108) mmHg ABG Total CO2 26 H (19-24) mmol/L ABG O2 Saturation 99.8 H (94-97) % Sodium (137-145) mmol/L Chloride (98-107) mmol/L Carbon Dioxide (22-30) mmol/L Glucose 113 H (74-99) mg/dL POC Glucose (mg/dL) (75-99) mg/dL Osmolality 400 H* (280-301) mosm/kg AST 254 H (17-59) U/L ALT 382 H (4-49) U/L Total Protein 9.4 H (6.3-8.2) g/dL Urine Blood Trace H (Negative) Serum Alcohol mg/dL Ethyl Alcohol Screen (Negative) mg/dL 01/31/21 01/31/21 01/31/21 Range/Units 22:35 22:35 22:35 WBC (3.8-10.6) k/uL ABG pO2 (83-108) mmHg ABG Total CO2 (19-24) mmol/L ABG O2 Saturation (94-97) % Sodium 148 H (137-145) mmol/L Chloride 110 H (98-107) mmol/L Carbon Dioxide (22-30) mmol/L Glucose 123 H (74-99) mg/dL POC Glucose (mg/dL) (75-99) mg/dL Osmolality 398 H* (280-301) mosm/kg AST 260 H (17-59) U/L ALT 383 H (4-49) U/L Total Protein 9.2 H (6.3-8.2) g/dL Urine Blood (Negative) Serum Alcohol 375 H* mg/dL Ethyl Alcohol Screen (Negative) mg/dL 02/01/21 02/01/21 02/01/21 Range/Units 03:45 03:45 03:45 WBC 11.9 H (3.8-10.6) k/uL ABG pO2 (83-108) mmHg ABG Total CO2 (19-24) mmol/L ABG O2 Saturation (94-97) % Sodium (137-145) mmol/L Chloride 111 H (98-107) mmol/L Carbon Dioxide (22-30) mmol/L Glucose 104 H (74-99) mg/dL POC Glucose (mg/dL) (75-99) mg/dL Osmolality 370 H* (280-301) mosm/kg AST 221 H (17-59) U/L ALT 336 H (4-49) U/L Total Protein 8.5 H (6.3-8.2) g/dL Urine Blood (Negative) Serum Alcohol mg/dL Ethyl Alcohol Screen (Negative) mg/dL 02/01/21 Range/Units 05:11 WBC (3.8-10.6) k/uL ABG pO2 155 H (83-108) mmHg ABG Total CO2 26 H (19-24) mmol/L ABG O2 Saturation 99.6 H (94-97) % Sodium (137-145) mmol/L Chloride (98-107) mmol/L Carbon Dioxide (22-30) mmol/L Glucose (74-99) mg/dL POC Glucose (mg/dL) (75-99) mg/dL Osmolality (280-301) mosm/kg AST (17-59) U/L ALT (4-49) U/L Total Protein (6.3-8.2) g/dL Urine Blood (Negative) Serum Alcohol mg/dL Ethyl Alcohol Screen (Negative) mg/dL Thrombosis Risk Factor Assmnt - Choose All That Apply Any of the Below Risk Factors Present?: No Other Risk Factors: No Other congenital or acquired thrombophilia - If yes, enter type in comment: No Thrombosis Risk Factor Assessment Level: Very Low Risk Assessment and Plan Assessment: Substance abuse, and injection of hand graduate assistant , with high alcohol level from graduate assistant acute hypoxic respiratory failure and unable to protect airway secondary to above , needing intubation and mechanical ventilation Heroin and methamphetamine addiction and withdrawal Alcohol abuse IV drug abuse transaminitis schizoaffective disorder homeless History of noncompliance to treatment History of IV drug abuse Hepatitis C history of depression and anxiety, not an active issue has a public guardian Plan: This is a pleasant 55 years old male who presents with respiratory failure secondary to ingestion hand graduate assistant. Follow-up recommendation by poison control. Continue supportive management. Follow-up recommendation by pulmonary/critical care team. Nephrology team on the case Labs and medication were reviewed.. Continue same treatment. Continue with symptomatic treatment. Resume home medication. Monitor lytes and vitals. DVT and GI prophylaxis. Further recommendations as per clinical course of the patient DVT prophylaxis: Subcutaneous Lovenox GI prophylaxis: Pepcid Prognosis is guarded
[2021-02-01] MEDS: DEXMEDETOMIDINE/0.9% NACL(PMX) 400 MCG in EMPTY BAG 1 BAG IV SCH (21:10)
[2021-02-01] MEDS ORDERED: IPRATROPIUM-ALBUTEROL 3 ML NEB INHALATION PRN (21:33)
[2021-02-01] MEDS: QUEtiapine 100 MG TAB PO SCH ×2 (21:53→22:23)
[2021-02-01] MEDS ORDERED: MORPHINE SULFATE 4 MG/ML SYRINGE IVP STA (22:27)
[2021-02-02] MEDS: SODIUM CHLORIDE 0.9% 1,000 ML IV SCH (00:39)
[2021-02-02] MEDS: DEXMEDETOMIDINE/0.9% NACL(PMX) 400 MCG in EMPTY BAG 1 BAG IV SCH (05:24)
[2021-02-02 05:32] LABS: Basophils # (A) 0.1 k/uL (0-0.2); Basophils % (A) 1 %; Eosinophils # (A) 0.2 k/uL (0-0.7); Eosinophils % (A) 2 %; HCT 35.2 % (39.0-53.0); HGB 12.1 gm/dL (13.0-17.5); Lymphocytes % (A) 25 %; MCH 30.3 pg (25.0-35.0); MCHC 34.3 g/dL (31.0-37.0); MCV 88.5 fL (80.0-100.0); Monocytes # (A) 0.6 k/uL (0-1.0); Monocytes % (A) 8 %; Neutrophils # (A) 4.9 k/uL (1.3-7.7); Neutrophils % (A) 62 %; Platelet Count 183 k/uL (150-450); RBC 3.98 m/uL (4.30-5.90); RDW 13.5 % (11.5-15.5); WBC 7.8 k/uL (3.8-10.6)
[2021-02-02 05:42] LABS: ALT 157 U/L (4-49); AST 84 U/L (17-59); African American GFR (CKD) >90 (>60 ml/min/1.73 sqM); Albumin 2.1 g/dL (3.5-5.0); Alkaline Phosphatase 34 U/L (38-126); Anion Gap 2 mmol/L; Blood Urea Nitrogen 11 mg/dL (9-20); Calcium 6.5 mg/dL (8.4-10.2); Carbon Dioxide 22 mmol/L (22-30); Chloride 113 mmol/L (98-107); Glucose 86 mg/dL (74-99); Non-African American GFR(CKD) >90 (>60 ml/min/1.73 sqM); Sodium 137 mmol/L (137-145); Total Bilirubin 0.7 mg/dL (0.2-1.3); Total Protein 4.9 g/dL (6.3-8.2)
[2021-02-02 05:48] LABS: Glucose,Whole Blood 105 mg/dL (75-99)
[2021-02-02] MEDS: LACTATED RINGERS 1,000 ML IV SCH ×3 (06:11→20:28)
--- NOTE | 2021-02-02 07:41 | XR ---
EXAMINATION TYPE: XR chest 1V portable DATE OF EXAM: 02/02/2021 COMPARISON: 02/01/2021 HISTORY: Cough TECHNIQUE: Single frontal view of the chest is obtained. FINDINGS: ET and NG tube have been removed. Patchy right perihilar infiltrate persists. Subtle area of nodularity not excluded. No pleural effusion or pneumothorax. Heart size stable. No overt failure. IMPRESSION: 1. Patchy right perihilar infiltrate stable.
[2021-02-02] MEDS ORDERED: IPRATROPIUM-ALBUTEROL 3 ML NEB INHALATION SCH (08:00)
[2021-02-02 08:58] LABS: Ethanol 36 mg/dL (Negative); Isopropanol Negative (Negative)
--- NOTE | 2021-02-02 09:25 | P.PN ---
Subjective Progress Note Date: 02/02/21 Principal diagnosis: Acute hypoxic respiratory failure secondary to ingestion of hand rotary kiln operator 35-year-old male, admitted to the mental health unit on January 25 for schizoaffective disorder. The patient was admitted to the intensive care unit on January 31, and intubated on January 31 for acute hypoxemic respiratory failure. He apparently drank 350 mL of hand rotary kiln operator, and came in with alcohol level of greater than 400. The patient currently remains on the mechanical ventilator. Settings include volume assist control, rate 26, tidal volume 400, FiO2 40%, PEEP of 5. Blood gases show a PaO2 of 155, a PaCO2 of 43, and a pH is 7.36. The patient's FiO2 will be dropped down to 25%. The patient's currently on propofol at 75 mcg/kg/m, lactated Ringer's at 150 mL an hour, saline at KVO, and tube feedings have not yet been started. The patient will be placed on Seroquel, and we'll start Precedex as well. We will do a daily eruption of sedation, and see if we can get this patient extubated. The patient will be placed on pressure support of 5, and CPAP of 5. Currently, the patient's sedated. No additional history could be obtained from the patient. White count is 11.9, hemoglobin 14.9, hematocrit 44.8, and platelet count is normal. Sodium is 145, potassium 4.1, chloride 111, CO2 23, anion gap is 11, with a BUN of 14 and creatinine 0.91. His serum osmolarity is 370. Most recent serum alcohol is 375. It will be repeated this morning. On 02/02/2021 patient is seen in follow-up in the intensive care unit, he was successfully weaned and extubated yesterday on 02/01/2021. Today she is drowsy, she remains on Precedex drip at 0.7 mcg/kg/hr. he is breathing comfortably, appears to be in no acute distress, no seizure activity, no agitation, no tremors. We will start weaning off the Precedex this morning, vital signs are stable, he has IV fluids infusing at 150 ML per hour of lactated Ringer's, he is tolerating oral diet. He is drowsy but opens eyes to command, and answers appropriately. Today's chest x-ray has been reviewed showing patchy right pe rihilar infiltrate which is stable in appearance, clinically patient denies any shortness of breath, no rhonchi or wheezing. It is having reviewed, showing white blood cell count is 7.8, hemoglobin is 12.1, potassium is 3.0 which was replaced per protocol, CO2 is 22, BUN is 11 and creatinine 0.4. His LFTs are improving, AST is down to 84, ALT is down to 157, and alkaline phosphatase is down to 34, his ethyl alcohol level is down to 36 from greater than 400 on 01/31/2021. His alcohol screen was negative for ethylene glycol, methanol alcohol, isopropyl, or acetone. Sputum culture has been sent, pending at this time, no fevers overnight. Remainder pulse ox is 97%. Blood pressures stable, not on any vasoactive drips, urine output is in the order of 55-260 ML per hour. Objective - Vital Signs Vital signs: Vital Signs Temp 98.0 F 02/02/21 08:00 Pulse 60 02/02/21 09:00 Resp 17 02/02/21 09:00 BP 105/53 02/02/21 09:00 Pulse Ox 96 02/02/21 09:00 Intake & Output 02/01/21 02/02/21 02/02/21 18:59 06:59 18:59 Intake Total 2066.928 2713.294 310.75 Output Total 695 987 55 Balance 7735.795 0000.294 255.75 Weight 86 kg Intake: IV 1800 1950 300 Lactated Ringers 1,000 ml 1800 1950 300 @ 150 mls/hr IV .Q6H40M [facility] Rx#:[id number] Intake, IV Titration 266.928 113.294 10.75 Amount Dexmedetomidine/0.9% NaCl 113.294 10.75 (Pmx) 400 mcg In Empty Bag 1 bag @ Titrate IV . Q0M [facility] Rx#:[id number] propofoL 1,000 mg In 266.928 Empty Bag 1 bag @ Titrate IV .Q0M [facility] Rx#: [id number] Oral 650 Output: Urine 695 987 55 Other: Voiding Method Indwelling Catheter Indwelling Catheter Indwelling Catheter ABP, PAP, CO, CI - Last Documented Arterial Blood Pressure 107/57 - Exam GENERAL EXAM: 35-year-old white male, on room air, breathing comfortably, drowsy but easily arousable to voice, answers appropriately comfortable in no apparent distress. HEAD: Normocephalic/atraumatic. EYES: Normal reaction of pupils, equal size. Conjunctiva pink, sclera white. NOSE: Clear with pink turbinates. THROAT: No erythema or exudates. NECK: No masses, no JVD, no thyroid enlargement, no adenopathy. CHEST: No chest wall deformity. Symmetrical expansion. LUNGS: Equal air entry with no crackles, wheeze, rhonchi or dullness. CVS: Regular rate and rhythm, normal S1 and S2, no gallops, no murmurs, no rubs ABDOMEN: Soft, nontender. No hepatosplenomegaly, normal bowel sounds, no guarding or rigidity. EXTREMITIES: No clubbing, no edema, no cyanosis, 2+ pulses and upper and lower extremities. MUSCULOSKELETAL: Muscle strength and tone normal. SPINE: No scoliosis or deformity SKIN: No rashes CENTRAL NERVOUS SYSTEM: Drowsy but easily arousable to voice No focal deficits, tone is normal in all 4 extremities. PSYCHIATRIC: Appropriate affect. Intact judgment and insight. - Labs CBC & Chem 7: 02/02/21 05:12 02/02/21 05:12 Labs: Abnormal Lab Results - Last 24 Hours (Table) 02/01/21 02/01/21 02/02/21 Range/Units 10:24 11:41 05:12 RBC 3.98 L (4.30-5.90) m/uL Hgb 12.1 L (13.0-17.5) gm/dL Hct 35.2 L (39.0-53.0) % ABG Lactic Acid 2.4 H* (0.5-1.6) mmol/L Potassium (3.5-5.1) mmol/L Chloride (98-107) mmol/L Creatinine (0.66-1.25) mg/dL POC Glucose (mg/dL) (75-99) mg/dL Calcium (8.4-10.2) mg/dL AST (17-59) U/L ALT (4-49) U/L Alkaline Phosphatase (38-126) U/L Total Protein (6.3-8.2) g/dL Albumin (3.5-5.0) g/dL Ethyl Alcohol Screen 36 H (Negative) mg/dL 02/02/21 02/02/21 Range/Units 05:12 05:46 RBC (4.30-5.90) m/uL Hgb (13.0-17.5) gm/dL Hct (39.0-53.0) % ABG Lactic Acid (0.5-1.6) mmol/L Potassium 3.0 L (3.5-5.1) mmol/L Chloride 113 H (98-107) mmol/L Creatinine 0.40 L (0.66-1.25) mg/dL POC Glucose (mg/dL) 105 H (75-99) mg/dL Calcium 6.5 L (8.4-10.2) mg/dL AST 84 H (17-59) U/L ALT 157 H (4-49) U/L Alkaline Phosphatase 34 L (38-126) U/L Total Protein 4.9 L (6.3-8.2) g/dL Albumin 2.1 L (3.5-5.0) g/dL Ethyl Alcohol Screen (Negative) mg/dL Microbiology - Last 24 Hours (Table) 02/01/21 07:39 Gram Stain - Preliminary Sputum Sputum Culture - Preliminary Assessment and Plan Plan: Assessment: #1. Acute hypoxemic respiratory failure secondary to ingestion of sensitizing and alcohol level greater than 400, with a decreased level of consciousness, patient was successfully weaned and extubated on 02/01/2021. Intubated on 01/31/2021 #2. History of schizoaffective disorder for which the patient was admitted to the mental health unit on 01/25/2021 #3. Acute alcoholic hepatitis, and LFTs are improving on today's labs #4. Anion gap metabolic acidosis, resolved Plan: We will wean off the Precedex, patient is cooperative, no agitation, no tremors, vital signs are stable. We'll continue patient on his home dose Seroquel. He is to be seen by psychiatric services, continue GI and DVT prophylaxis, as the patient's oral intake increases may decrease the IV fluid rate. LFTs are improving, no acute events overnight. Once the Precedex is off and he is doing well, consider transferring the patient back to mental health unit cleared by medicine I performed a history & physical examination of the patient and discussed their management with my nurse practitioner, Shari Tovar. I reviewed the nurse practitioner's note and agree with the documented findings and plan of care. Lung sounds are positive for clear breath sounds. The findings and the impression was discussed with the patient. I attest to the documentation by the nurse practitioner. Time with Patient: Less than 30
[2021-02-02] MEDS ORDERED: BENZOCAINE/MENTHOL LOZENG 1 EACH LOZENGE MUCOUS MEM PRN (09:28)
[2021-02-02] MEDS: PANTOPRAZOLE 40 MG/10 ML VIAL IVP SCH (09:52)
[2021-02-02] MEDS: ACETAMINOPHEN TAB 325 MG TAB PO PRN (09:53)
[2021-02-02] MEDS: POTASSIUM CHLORIDE ER 20 MEQ TAB.ER PO SCH ×2 (09:53→15:46)
[2021-02-02] MEDS: ENOXAPARIN 40 MG/0.4 ML SYRINGE SQ SCH (09:53)
[2021-02-02] MEDS: QUEtiapine 50 MG TAB PO SCH (09:55)
--- NOTE | 2021-02-02 10:08 | P.PN ---
Subjective Patient is seen in follow-up for hand cardiovascular operating room nurse ingestion. Extubated February 01. Oral intake has been fair. Currently sleeping. Hemodynamically stable. Vital signs are stable. General: The patient appeared well nourished and normally developed. HEENT: Head exam is unremarkable. Neck is without jugular venous distension. LUNGS: Breath sounds decreased. HEART: Rate and Rhythm are regular. ABDOMEN: Soft, no distention noted. EXTREMITITES: No edema. Objective - Vital Signs Vital signs: Vital Signs Temp 98.0 F 02/02/21 08:00 Pulse 60 02/02/21 09:00 Resp 17 02/02/21 09:00 BP 105/53 02/02/21 09:00 Pulse Ox 96 02/02/21 09:00 Intake & Output 02/01/21 02/02/21 02/02/21 18:59 06:59 18:59 Intake Total 2066.928 2713.294 310.75 Output Total 695 987 55 Balance 3846.365 1449.294 255.75 Weight 86 kg Intake: IV 1800 1950 300 Lactated Ringers 1,000 ml 1800 1950 300 @ 150 mls/hr IV .Q6H40M [facility] Rx#:[id number] Intake, IV Titration 266.928 113.294 10.75 Amount Dexmedetomidine/0.9% NaCl 113.294 10.75 (Pmx) 400 mcg In Empty Bag 1 bag @ Titrate IV . Q0M [facility] Rx#:[id number] propofoL 1,000 mg In 266.928 Empty Bag 1 bag @ Titrate IV .Q0M [facility] Rx#: [id number] Oral 650 Output: Urine 695 987 55 Other: Voiding Method Indwelling Catheter Indwelling Catheter Indwelling Catheter ABP, PAP, CO, CI - Last Documented Arterial Blood Pressure 107/57 - Labs CBC & Chem 7: 02/02/21 05:12 02/02/21 05:12 Labs: Abnormal Lab Results - Last 24 Hours (Table) 02/01/21 02/01/21 02/02/21 Range/Units 10:24 11:41 05:12 RBC 3.98 L (4.30-5.90) m/uL Hgb 12.1 L (13.0-17.5) gm/dL Hct 35.2 L (39.0-53.0) % ABG Lactic Acid 2.4 H* (0.5-1.6) mmol/L Potassium (3.5-5.1) mmol/L Chloride (98-107) mmol/L Creatinine (0.66-1.25) mg/dL POC Glucose (mg/dL) (75-99) mg/dL Calcium (8.4-10.2) mg/dL AST (17-59) U/L ALT (4-49) U/L Alkaline Phosphatase (38-126) U/L Total Protein (6.3-8.2) g/dL Albumin (3.5-5.0) g/dL Ethyl Alcohol Screen 36 H (Negative) mg/dL 02/02/21 02/02/21 Range/Units 05:12 05:46 RBC (4.30-5.90) m/uL Hgb (13.0-17.5) gm/dL Hct (39.0-53.0) % ABG Lactic Acid (0.5-1.6) mmol/L Potassium 3.0 L (3.5-5.1) mmol/L Chloride 113 H (98-107) mmol/L Creatinine 0.40 L (0.66-1.25) mg/dL POC Glucose (mg/dL) 105 H (75-99) mg/dL Calcium 6.5 L (8.4-10.2) mg/dL AST 84 H (17-59) U/L ALT 157 H (4-49) U/L Alkaline Phosphatase 34 L (38-126) U/L Total Protein 4.9 L (6.3-8.2) g/dL Albumin 2.1 L (3.5-5.0) g/dL Ethyl Alcohol Screen (Negative) mg/dL Microbiology - Last 24 Hours (Table) 02/01/21 07:39 Gram Stain - Preliminary Sputum Sputum Culture - Preliminary Assessment and Plan Plan: Assessment: 1. Hand cardiovascular operating room nurse ingestion on January 31. Patient's serum alcohol level was initially 439 and down to 82 as of yesterday. Metabolic alcohol, ethylene glycol, isopropyl alcohol and acetone levels negative. No significant acidosis. Renal function normal. Good urine output. Poison control is closely f ollowing. 2. Schizoaffective disorder. 3. Transaminitis related to ethanol ingestion. Trending down. 4. Hypokalemia from poor intake. Plan: Decrease rate of IV fluids to 100 mL an hour. Poison control closely following. Continue to monitor for need for renal replacement therapy. Potassium being replaced.
[2021-02-02] MEDS ORDERED: QUEtiapine 50 MG TAB PO STA (15:24)
[2021-02-02] MEDS ORDERED: HALOPERIDOL LACTATE 5 MG/ML 1 ML VIAL IM PRN (15:25)
[2021-02-02] MEDS: VENLAFAXINE HCL ER 37.5 MG CAP PO SCH (15:46)
[2021-02-02] MEDS: chlordiazePOXIDE 25 MG CAP PO SCH ×2 (15:46→20:44)
[2021-02-02] MEDS: haloperidoL 5 MG TAB PO PRN (17:54)
[2021-02-02] MEDS ORDERED: haloperidoL 5 MG TAB PO SCH (18:00)
[2021-02-02] MEDS ORDERED: diphenhydrAMINE 50 MG/ML 1 ML VIAL IVP PRN (20:03)
[2021-02-02] MEDS: QUEtiapine 200 MG TAB PO SCH (20:28)
--- NOTE | 2021-02-02 22:50 | P.PN ---
Subjective This is a pleasant 55 years old male with past medical history of schizoaffective disorder, substance abuse and noncompliance with treatment. History of IV drug abuse He was recently hospitalized to the general medical floor 01/21-01/25, next day he w as admitted to the mental health unit on 01/26 for signs and symptoms of heroin withdrawal. He is homeless, unmarried, history of DUI, unemployed and he has a public guardian. On admission he was described as disheveled and has poor grooming eye contact appropriate and speech minimal. Yesterday afternoon patient grabbed about the HAND blown film extrusion operator and ran in the hallway, and alarm was found into the patient has consumed over 270 to 350 mL of 540 milliliter bottle. Patient stated to staff that he dropped the head blown film extrusion operator because he was grieving for alcohol but not trying to kill himself Patient a team was called yesterday because he was altered mental status, diaphoretic, minimally responsive to pain and shallow breathing, it was intubated and sent to the ICU. his PEEP is 5, FiO2 25%, still sedated with propofol 02/02/2021 Patient is status post extubation yesterday, this morning patient is alert awake and oriented to time, place and person he was calm, he was complaining only from source versus in his throat from recent intubation/extubation. He denies chest pain or dyspnea. No abdominal pain or nausea vomiting Patient was cleared for discharge by critical care team and casing man to go back to mental health unit, psych team were consulted however they haven't seen him today so transfer was held until they see him tomorrow however, hydroxyzine could not be given because of risk of QT prolongation on the top of other medication, his agitation it could be due to heroine withdrawal or substance abuse withdrawal as well. Possible transfer to psych unit and 24 hours Review of systems CONSTITUTIONAL: No fever, no malaise, no fatigue. HEENT: No recent visual problems or hearing problems. Denied any sore throat. CARDIOVASCULAR: No orthopnea, PND, no palpitations, no syncope. PULMONARY: No shortness of breath, no cough, no hemoptysis. GASTROINTESTINAL: No diarrhea, no nausea, no vomiting, no abdominal pain. Normoactive bowel sounds. NEUROLOGICAL: No headaches, no weakness, no numbness. Active Medications Generic Name Dose Route Start Last Admin Trade Name Freq PRN Reason Stop Dose Admin Acetaminophen 650 mg 02/02/21 09:31 02/02/21 09:53 Acetaminophen Tab 325 Mg Tab PO 650 mg Q6HR PRN Administration Fever and/ or Pain Benzocaine/Menthol 1 each 02/02/21 09:28 02/02/21 09:52 Benzocaine/Menthol Lozeng 1 Each Lozenge MUCOUS MEM 1 each Q4HR PRN Administration Sore Throat Chlordiazepoxide HCl 25 mg 02/02/21 16:00 02/02/21 20:44 Chlordiazepoxide 25 Mg Cap PO 25 mg TID KATARZYNA Administration Diphenhydramine HCl 25 mg 02/02/21 20:03 02/02/21 20:28 Diphenhydramine 50 Mg/Ml 1 Ml Vial IVP 25 mg Q6HR PRN Administration Allergy Symptoms Enoxaparin Sodium 40 mg 02/01/21 09:00 02/02/21 09:53 Enoxaparin 40 Mg/0.4 Ml Syringe SQ 40 mg DAILY KATARZYNA Administration Haloperidol 5 mg 02/02/21 15:31 02/02/21 17:54 Haloperidol 5 Mg Tab PO 5 mg QID PRN Administration Agitation or Acute Anxiety Haloperidol Lactate 5 mg 02/02/21 15:25 02/02/21 16:28 Haloperidol Lactate 5 Mg/Ml 1 Ml Vial IM 5 mg Q6HR PRN Administration Agitation or Acute Psychosis Lactated Ringer's 1,000 mls @ 150 mls/hr 01/31/21 20:30 02/02/21 20:28 Lactated Ringers IV Not Given .Q6H40M KATARZYNA Naloxone HCl 0.2 mg 01/31/21 20:05 Naloxone 0.4 Mg/Ml 1 Ml Vial IV Q2M PRN Opioid Reversal Pantoprazole Sodium 40 mg 02/03/21 09:00 Pantoprazole 40 Mg Tablet PO DAILY KATARZYNA Quetiapine Fumarate 200 mg 02/02/21 21:00 02/02/21 20:28 Quetiapine 200 Mg Tab PO 200 mg HS KATARZYNA Administration Quetiapine Fumarate 100 mg 02/03/21 09:00 Quetiapine 100 Mg Tab PO DAILY KATARZYNA Venlafaxine HCl 37.5 mg 02/02/21 15:30 02/02/21 15:46 Venlafaxine Hcl Er 37.5 Mg Cap PO 37.5 mg DAILY KATARZYNA Administration Objective - Vital Signs Vital signs: Vital Signs Temp 98.0 F 02/02/21 12:00 Pulse 93 02/02/21 12:00 Resp 17 02/02/21 12:00 BP 112/52 02/02/21 12:00 Pulse Ox 97 02/02/21 12:00 Intake & Output 02/01/21 02/02/21 02/02/21 18:59 06:59 18:59 Intake Total 2066.928 2713.294 610.75 Output Total 695 987 55 Balance 1260.978 9586.294 555.75 Weight 86 kg Intake: IV 1800 1950 600 Lactated Ringers 1,000 ml 1800 1950 600 @ 150 mls/hr IV .Q6H40M KATARZYNA Rx#:[id number] Intake, IV Titration 266.928 113.294 10.75 Amount Dexmedetomidine/0.9% NaCl 113.294 10.75 (Pmx) 400 mcg In Empty Bag 1 bag @ Titrate IV . Q0M KATARZYNA Rx#:[id number] propofoL 1,000 mg In 266.928 Empty Bag 1 bag @ Titrate IV .Q0M KATARZYNA Rx#: [id number] Oral 650 Output: Urine 695 987 55 Other: Voiding Method Indwelling Catheter Indwelling Catheter Indwelling Catheter # Voids 1 ABP, PAP, CO, CI - Last Documented Arterial Blood Pressure 93/54 - Exam GENERAL: The patient is alert and oriented x3, not in any acute distress. Well developed, well nourished. HEENT: Pupils are round and equally reacting to light. EOMI. No scleral icterus. No conjunctival pallor. Normocephalic, atraumatic. No pharyngeal erythema. No thyromegaly. CARDIOVASCULAR: S1 and S2 present. No murmurs, rubs, or gallops. PULMONARY: Chest is clear to auscultation, no wheezing or crackles. ABDOMEN: Soft, nontender, nondistended, normoactive bowel sounds. No palpable or ganomegaly. MUSCULOSKELETAL: No joint swelling or deformity. EXTREMITIES: No cyanosis, clubbing, or pedal edema. NEUROLOGICAL: Gross neurological examination did not reveal any focal deficits. SKIN: No rashes. no petechiae. - Labs CBC & Chem 7: 02/02/21 05:12 02/02/21 05:12 Labs: Abnormal Lab Results - Last 24 Hours (Table) 02/01/21 02/02/21 02/02/21 Range/Units 11:41 05:12 05:12 RBC 3.98 L (4.30-5.90) m/uL Hgb 12.1 L (13.0-17.5) gm/dL Hct 35.2 L (39.0-53.0) % Potassium 3.0 L (3.5-5.1) mmol/L Chloride 113 H (98-107) mmol/L Creatinine 0.40 L (0.66-1.25) mg/dL POC Glucose (mg/dL) (75-99) mg/dL Calcium 6.5 L (8.4-10.2) mg/dL AST 84 H (17-59) U/L ALT 157 H (4-49) U/L Alkaline Phosphatase 34 L (38-126) U/L Total Protein 4.9 L (6.3-8.2) g/dL Albumin 2.1 L (3.5-5.0) g/dL Ethyl Alcohol Screen 36 H (Negative) mg/dL 02/02/21 Range/Units 05:46 RBC (4.30-5.90) m/uL Hgb (13.0-17.5) gm/dL Hct (39.0-53.0) % Potassium (3.5-5.1) mmol/L Chloride (98-107) mmol/L Creatinine (0.66-1.25) mg/dL POC Glucose (mg/dL) 105 H (75-99) mg/dL Calcium (8.4-10.2) mg/dL AST (17-59) U/L ALT (4-49) U/L Alkaline Phosphatase (38-126) U/L Total Protein (6.3-8.2) g/dL Albumin (3.5-5.0) g/dL Ethyl Alcohol Screen (Negative) mg/dL Microbiology - Last 24 Hours (Table) 02/01/21 07:39 Gram Stain - Preliminary Sputum Sputum Culture - Preliminary Assessment and Plan Assessment: Substance abuse, and injection of hand blown film extrusion operator , with high alcohol level from blown film extrusion operator acute hypoxic respiratory failure and unable to protect airway secondary to above , needing mechanical ventilation, status post extubation on Heroin and methamphetamine addiction and withdrawal Alcohol abuse IV drug abuse transaminitis schizoaffective disorder Agitated and anxiety secondary to above homeless History of noncompliance to treatment History of IV drug abuse Hepatitis C history of depression and anxiety, not an active issue has a public guardian Plan: This is a pleasant 55 years old male who presents with respiratory failure secondary to ingestion hand blown film extrusion operator. Patient status post extubation, continue with the psychiatrist recommendation and medication including Effexor, Librium, Seroquel and Haldol when necessary as well as Benadryl as needed. Patient to be transferred to psych unit was cleared by psychiatrist. Patient is already cleared by pulmonary and nephrology service to transfer him to mental health unit Continue supportive management. Follow-up recommendation by pulmonary/critical care team. Nephrology team on the case Labs and medication were reviewed.. Continue same treatment. Continue with symptomatic treatment. Resume home medication. Monitor lytes and vitals. DVT and GI prophylaxis. Further recommendations as per clinical course of the patient DVT prophylaxis: Subcutaneous Lovenox GI prophylaxis: Pepcid Prognosis is guarded
[2021-02-03] MEDS: LACTATED RINGERS 1,000 ML IV SCH ×3 (06:06→10:01)
--- NOTE | 2021-02-03 08:33 | XR ---
EXAMINATION TYPE: XR chest 1V portable DATE OF EXAM: 02/03/2021 COMPARISON: 02/02/2021 HISTORY: Cough TECHNIQUE: Single frontal view of the chest is obtained. FINDINGS: Improvement in the patchy infiltrate in the right perihilar region. No sizable pleural eff usion or pneumothorax. Heart size normal. No overt failure. IMPRESSION: Interval noticeable improvement in the patchy right perihilar infiltrate
[2021-02-03] MEDS ORDERED: QUEtiapine 100 MG TAB PO SCH (09:00)
[2021-02-03] MEDS ORDERED: PANTOPRAZOLE 40 MG TABLET PO SCH (09:00)
[2021-02-03] MEDS: chlordiazePOXIDE 25 MG CAP PO SCH ×3 (09:12→20:07)
[2021-02-03 09:13] LABS: ALT 239 U/L (4-49); AST 167 U/L (17-59); African American GFR (CKD) >90 (>60 ml/min/1.73 sqM); Albumin 3.7 g/dL (3.5-5.0); Alkaline Phosphatase 45 U/L (38-126); Anion Gap 7 mmol/L; Blood Urea Nitrogen 10 mg/dL (9-20); Carbon Dioxide 25 mmol/L (22-30); Chloride 108 mmol/L (98-107); Globulin 3.8 g/dL; Glucose 100 mg/dL (74-99); Magnesium 1.7 mg/dL (1.6-2.3); Non-African American GFR(CKD) >90 (>60 ml/min/1.73 sqM); Sodium 140 mmol/L (137-145); Total Bilirubin 0.4 mg/dL (0.2-1.3); Total Protein 7.5 g/dL (6.3-8.2)
[2021-02-03] MEDS: ENOXAPARIN 40 MG/0.4 ML SYRINGE SQ SCH (09:13)
[2021-02-03] MEDS: ACETAMINOPHEN TAB 325 MG TAB PO PRN (09:13)
[2021-02-03] MEDS: VENLAFAXINE HCL ER 37.5 MG CAP PO SCH (10:06)
--- NOTE | 2021-02-03 11:05 | P.PN ---
Subjective Patient is seen in follow-up for hand accounting policy consultant ingestion. Extubated February 01. Oral intake has been fair. Hemodynamically stable. Good urine output. Vital signs are stable. General: The patient appeared well nourished and normally developed. HEENT: Head exam is unremarkable. Neck is without jugular venous distension. LUNGS: Breath sounds decreased. HEART: Rate and Rhythm are regular. ABDOMEN: Soft, no distention noted. EXTREMITITES: No edema. Objective - Vital Signs Vital signs: Vital Signs Temp 97.8 F 02/03/21 07:05 Pulse 80 02/03/21 07:05 Resp 18 02/03/21 07:30 BP 158/85 02/03/21 07:05 Pulse Ox 98 02/03/21 08:09 Intake & Output 02/02/21 02/03/21 02/03/21 18:59 06:59 18:59 Intake Total 910.75 480 Output Total 55 Balance 855.75 480 Intake: IV 900 0 Lactated Ringers 1,000 ml 900 0 @ 150 mls/hr IV .Q6H40M KATARZYNA Rx#:[id number] Intake, IV Titration 10.75 Amount Dexmedetomidine/0.9% NaCl 10.75 (Pmx) 400 mcg In Empty Bag 1 bag @ Titrate IV . Q0M KATARZYNA Rx#:[id number] Oral 480 Output: Urine 55 Other: Voiding Method Indwelling Catheter Toilet Toilet Urinal # Voids 2 1 ABP, PAP, CO, CI - Last Documented Arterial Blood Pressure 93/54 - Labs CBC & Chem 7: 02/02/21 05:12 02/03/21 08:28 Labs: Abnormal Lab Results - Last 24 Hours (Table) 02/03/21 Range/Units 08:28 Chloride 108 H (98-107) mmol/L Creatinine 0.65 L (0.66-1.25) mg/dL Glucose 100 H (74-99) mg/dL AST 167 H (17-59) U/L ALT 239 H (4-49) U/L Assessment and Plan Plan: Assessment: 1. Hand accounting policy consultant ingestion on January 31. Patient's serum alcohol level was initially 439 and down to 82 as of February 01. Metabolic alcohol, ethylene glycol, isopropyl alcohol and acetone levels negative. Ethyl alcohol level down to 36 as of February 01. No significant acidosis. Renal function normal. Good urine output. Poison control is closely following. 2. Schizoaffective disorder. 3. Transaminitis related to ethanol ingestion. 4. Hypokalemia from poor intake. Status post replacement. Better. Plan: Hep-Lock IV fluids. No need for renal replacement therapy. I will sign off. Please call with any questions or concerns.
--- NOTE | 2021-02-03 11:38 | P.CN ---
Psychiatric Consult - . Consult date: 02/03/21 Consult:: 02/03/21 11:11 IDENTIFYING DATA: This patient is a 35-year-old male, who is homeless, unmarried who was admitted for polysubstance withdrawal and has a chronic history of polysubstance abuse and schizoaffective disorder. HPI: Patient presented initially to the hospital yesterday to the emergency department with complaints of stopping his heroin the day previous as he was trying to quit. Patient presented with complaints of feeling shaky and having sweats. Patient has a chronic history of polysubstance abuse and schizoaffective disorder. Patient is also chronically homeless. Patient was seen initially by psychiatric consultation liaison. He has poor insight and judgment. Patient went through polysubstance withdrawal and gradually became more agitated and paranoid believing that he owed money to a drug dealer and wanted to be released from the hospital. Patient required IM prn medications while on the medical floors and patient was transferred last night to inpatient psychiatry. Patient was on the inpatient psychiatric unit for several days and improving with regards to his symptoms and set to go to [facility] for substance use treatment however on 01/31/21 patient was noted to be pacing the hallways and went into the activity group room and stole the hand local intermodal truck driver at the front of the room and ran out of the room down the hallway drinking approximately half of the bottle. Patient was then transferred to medicine/ICU and intubated at that time. Patient was extubated on 02/01/21 and treated for withdrawal symptoms from alcohol intoxication. Patient was seen today by senior technical writer once again for consultation. He continues to appear to be disheveled in appearance however was lying in his bed with his one-to-one sitter at his side. He offered no overnight complaints and states that he slept better last night. He continues to endorse mild depression. He states that he was "trying to get drunk" when he took the hand local intermodal truck driver while on the mental health unit. He claims that "I won't do that again". He states that at this time he is not hearing any voices talking to him. He claims that he would like to go to rehab upon discharge. He is denying any paranoia or delusions at this time. Patient admits to using cigarettes and heroin, and methamphetamine regularly. He is denying any alcohol use. Patient is denying any diarrhea, piloerection or any restlessness. He is denying any auditory or visual hallucinations and denied any suicidal or homicidal ideations intent or plan. PAST PSYCHIATRIC HISTORY: The patient has had numerous inpatient psychiatric admissions. His last admission was in October 2020. He has a history of 3 suicide attempts via overdoses and cutting his wrist. He is open with [facility] but noncompliant with treatment. Patient has an active substance use court order for treatment. Patient is currently on Seroquel, Effexor, Cogentin and Vistaril. Patient was previously on Invega Sustenna 234 mg monthly injections and his previous psychiatric hospitalization he was switched onto Haldol Decanoate 100 mg every 7 days IM injection. PMH: Hepatitis C, GERD ALLERGIES: as per EMR CHEMICAL DEPENDENCY HISTORY: as per HPI FAMILY PSYCHIATRIC/SUBSTANCE USE HISTORY: States that "everybody on my mother's side" had mental illness. SOCIAL HISTORY: Patient was born and raised in [facility] and is currently homeless and has no kids is unmarried and completed up to 12th grade. Patient claims that he is unemployed and does not collect any benefits. MENTAL STATUS EXAM: General Appearance: Patient appears to be older than stated age is alert, attempts to cooperate. Patient appears to have poor hygiene and grooming. Disheveled appearance. Wearing hospital gown. Behavior: Patient is laying in his bed without any agitated behavior. Constricted. Speech: Patient's speech is fluent and nonpressured. Monotone. Mood/Affect: Patient reports their mood is "ok", affect is incongruent and constricted Suicidality/Homicidality: Patient denies having any homicidal ideation intent or plan. Denies any suicidal thoughts no intent or plan Perceptions: Patient denies any visual hallucinations and denies any auditory hui llucinations Though content/process: [place], poverty of content. Poor insight. minimizing his drug use. Memory and concentration: AOX2, poor attention span, does not know what today's date is Judgment and insight: poor/impulsive. IMPRESSIONS: Schizoaffective disorder alcohol use disorder cannabis use disorder opioid use disorder, currently in withdrawal methamphetamine use disorder, currently in withdrawal Nicotine dependence PLAN: -At this time patient DOES meet criteria for inpatient psychiatric admission. Patient is currently on a deferral. -Would recommend the following medication changes/additions: Continue with medications as perscribed. Will continue with librium and gradually taper off for etoh w/d sx. -Continue 1:1 sitter for safety -Will continue with trying to arrange for patient to go to [facility] for substance use treatment. -When medically stable, patient is eligible for transfer to a psych bed when available. -Communicated plan to patient's nurse -Psychiatry will sign off at this time -Please contact with any questions
--- NOTE | 2021-02-03 11:57 | P.DS ---
Providers Date of admission: 01/31/21 17:15 Attending physician: Abelardo Potts Consults: 01/31/21 20:00 Consult Physician Stat Consulting Provider: Leila Morin Consult Reason/Comments: icu management, intubation Do you want consulting provider notified?: Yes 02/01/21 01:37 Consult Physician Routine Consulting Provider: Nan Mann Consult Reason/Comments: possible dialysis Do you want consulting provider notified?: Already Contacted 02/02/21 12:12 Consult Physician Stat Consulting Provider: Gamal Ruvalcaba Consult Reason/Comments: Mental Health Do you want consulting provider notified?: Yes Primary care physician: Stated None Hospital Course: Diagnoses: Substance abuse, and ingestion of hand rolling machine tender for its alcohol content and coz he wanted to be drunk , with high alcohol level from rolling machine tender acute hypoxic respiratory failure and unable to protect airway secondary to above , needing mechanical ventilation, Heroin and methamphetamine addiction and withdrawal Alcohol abuse IV drug abuse transaminitis schizoaffective disorder homeless History of noncompliance to treatment History of IV drug abuse Hepatitis C history of depression and anxiety, not an active issue has a public guardian Hospital course: This is a pleasant 55 years old male with past medical history of schizoaffective disorder, substance abuse and noncompliance with treatment. History of IV drug abuse He was recently hospitalized to the general medical floor 01/21-01/25, next day he was admitted to the mental health unit on 01/26 for signs and symptoms of heroin withdrawal. He is homeless, unmarried, history of DUI, unemployed and he has a public guardian. On admission he was described as disheveled and has poor grooming eye contact appropriate and speech minimal. on 01/31 afternoon patient grabbed a bottle of HAND rolling machine tender and ran in the hallway, and alarm was sounded and the patient has consumed over 270 to 350 mL of 540 milliliter bottle. Patient stated to staff that he drank the hand rolling machine tender because he was grieving for alcohol but not trying to kill himself Patient a team was called and because he was altered mental status, diaphoretic, minimally responsive to pain and shallow breathing, it was intubated and sent to the ICU. The patient got extubated successfully on 02/01. Patient remains clinically stable. Pulmonary/critical care team were following the case closely. Asphalt Screed Operator also was consulted but patient did not need any hemodialysis as his creatinine was not elevated at 0.4, and patient didn't his normal mentation this morning as he is alert, awake and follow commands and oriented to the surrounding and to time, place and person. last night pt got agitated and start acting out, laying in on the floor, pacing, yelling out. Sitter placed for safety. Psychiatric was consulted. Ordered some medication, is referred to his medication and instructions and psych note. Psychiatrist saw him this morning exam to go to psych unit. Sitter at bedside for safety. This morning he is calm, lying in bed denying any symptoms. Patient is medically stable to go to psych unit today Patient denies chest pain or dyspnea, no abdominal pain, no change in urine or bowel habits. No fever Patient was cleared for discharge by pulmonary and nephrology teams to go back to his mental health unit today. Problems and management plan were discussed with the patient and he verbalized understanding and acceptance Patient was found stable and can be discharged home however he needs follow-up as an outpatient. Patient was instructed to follow up with PCP within one week after dc from Psych unit and patient agrees Gen: patient is a AAOx3, no distress CVS: S1-S2, RRR, no murmur Lungs: B/L CTA, no wheezing Abdomen: soft, no distention, no tenderness, positive bowel sounds Extremity: no leg edema or induration Time spent more than 35 minutes Plan - Discharge Summary Discharge Rx Participant: No New Discharge Prescriptions: No Action Nicotine 14Mg/24Hr Patch [Habitrol] 1 patch TRANSDERM DAILY 14 Days patch Acetaminophen Tab [Tylenol] 650 mg PO Q4HR PRN tab PRN Reason: Pain/Discomfort Venlafaxine HCl ER [Effexor XR] 75 mg PO DAILY #30 cap.er.24h Haloperidol Decanoate [Haldol D] 100 mg IM Q7D #1 vial QUEtiapine [SEROquel] 50 mg PO DAILY #30 tab QUEtiapine [SEROquel] 100 mg PO HS #30 tab hydrOXYzine pamoate [Vistaril] 25 mg PO BID PRN 30 Days cap PRN Reason: Anxiety cloNIDine HCL [Catapres] 0.1 mg PO QID #0 tab Folic Acid 1 mg PO DAILY@1200 tab Multivitamins, Thera [Multivitamin (formulary)] 1 each PO DAILY@1200 tab Pantoprazole [Protonix] 40 mg PO AC-BRKFST tablet. Thiamine [Vitamin B-1] 100 mg PO DAILY@1200 tab Discharge Medication List Acetaminophen Tab [Tylenol] 650 mg PO Q4HR PRN tab 05/20/20 [Rx] Nicotine 14Mg/24Hr Patch [Habitrol] 1 patch TRANSDERM DAILY 14 Days patch 05/20/20 [Rx] Haloperidol Decanoate [Haldol D] 100 mg IM Q7D #1 vial 10/28/20 [Rx] QUEtiapine [SEROquel] 50 mg PO DAILY #30 tab 10/28/20 [Rx] QUEtiapine [SEROquel] 100 mg PO HS #30 tab 10/28/20 [Rx] Venlafaxine HCl ER [Effexor XR] 75 mg PO DAILY #30 cap.er.24h 10/28/20 [Rx] hydrOXYzine pamoate [Vistaril] 25 mg PO BID PRN 30 Days cap 10/28/20 [Rx] Folic Acid 1 mg PO DAILY@1200 tab 01/25/21 [Rx] Multivitamins, Thera [Multivitamin (formulary)] 1 each PO DAILY@1200 tab 01/25/21 [Rx] Pantoprazole [Protonix] 40 mg PO AC-BRKFST tablet. 01/25/21 [Rx] Thiamine [Vitamin B-1] 100 mg PO DAILY@1200 tab 01/25/21 [Rx] cloNIDine HCL [Catapres] 0.1 mg PO QID #0 tab 01/25/21 [Rx]
[2021-02-03] MEDS: haloperidoL 5 MG TAB PO PRN ×2 (13:46→18:20)
--- NOTE | 2021-02-03 15:09 | P.PN ---
Subjective Progress Note Date: 02/03/21 Principal diagnosis: Acute hypoxic respiratory failure secondary to ingestion of hand bindery helper 35-year-old male, admitted to the mental health unit on January 25 for schizoaffective disorder. The patient was admitted to the intensive care unit on January 31, and intubated on January 31 for acute hypoxemic respiratory failure. He apparently drank 350 mL of hand bindery helper, and came in with alcohol level of greater than 400. The patient currently remains on the mechanical ventilator. Settings include volume assist control, rate 26, tidal volume 400, FiO2 40%, PEEP of 5. Blood gases show a PaO2 of 155, a PaCO2 of 43, and a pH is 7.36. The patient's FiO2 will be dropped down to 25%. The patient's currently on propofol at 75 mcg/kg/m, lactated Ringer's at 150 mL an hour, saline at KVO, and tube feedings have not yet been started. The patient will be placed on Seroquel, and we'll start Precedex as well. We will do a daily eruption of sedation, and see if we can get this patient extubated. The patient will be placed on pressure support of 5, and CPAP of 5. Currently, the patient's sedated. No additional history could be obtained from the patient. White count is 11.9, hemoglobin 14.9, hematocrit 44.8, and platelet count is normal. Sodium is 145, potassium 4.1, chloride 111, CO2 23, anion gap is 11, with a BUN of 14 and creatinine 0.91. His serum osmolarity is 370. Most recent serum alcohol is 375. It will be repeated this morning. On 02/02/2021 patient is seen in follow-up in the intensive care unit, he was successfully weaned and extubated yesterday on 02/01/2021. Today she is drowsy, she remains on Precedex drip at 0.7 mcg/kg/hr. he is breathing comfortably, appears to be in no acute distress, no seizure activity, no agitation, no tremors. We will start weaning off the Precedex this morning, vital signs are stable, he has IV fluids infusing at 150 ML per hour of lactated Ringer's, he is tolerating oral diet. He is drowsy but opens eyes to command, and answers appropriately. Today's chest x-ray has been reviewed showing patchy right pe rihilar infiltrate which is stable in appearance, clinically patient denies any shortness of breath, no rhonchi or wheezing. It is having reviewed, showing white blood cell count is 7.8, hemoglobin is 12.1, potassium is 3.0 which was replaced per protocol, CO2 is 22, BUN is 11 and creatinine 0.4. His LFTs are improving, AST is down to 84, ALT is down to 157, and alkaline phosphatase is down to 34, his ethyl alcohol level is down to 36 from greater than 400 on 01/31/2021. His alcohol screen was negative for ethylene glycol, methanol alcohol, isopropyl, or acetone. Sputum culture has been sent, pending at this time, no fevers overnight. Remainder pulse ox is 97%. Blood pressures stable, not on any vasoactive drips, urine output is in the order of 55-260 ML per hour. On 02/03/2021 patient seen in follow-up on medical floor. He is resting in bed, appears to be in no acute distress, seems drowsy but easily wakes up and he is answering verbally to questioning, no agitation, fairly cooperative, has a system safety manager at the bedside for suicidal precautions, awaiting psychiatry evaluation, no running IVs, IVs have been hep-locked, vital signs Stable, room air pulse ox 97%, breathing is nonlabored, comfortable, no cough or congestion, no wheezing. Patient denies being suicidal, he states all he said was that he does not want to live. Patient was evaluated by psychiatry, and was cleared for discharge home with outpatient follow-up. Objective - Vital Signs Vital signs: Vital Signs Temp 98.1 F 02/03/21 13:00 Pulse 108 H 02/03/21 13:00 Resp 24 02/03/21 13:00 BP 171/97 02/03/21 13:00 Pulse Ox 97 02/03/21 13:00 Intake & Output 02/02/21 02/03/21 02/03/21 18:59 06:59 18:59 Intake Total 910.75 480 Output Total 55 Balance 855.75 480 Weight 84 kg Intake: IV 900 0 Lactated Ringers 1,000 ml 900 0 @ 150 mls/hr IV .[id number] [facility] Rx#:[id number] Intake, IV Titration 10.75 Amount Dexmedetomidine/0.9% NaCl 10.75 (Pmx) 400 mcg In Empty Bag 1 bag @ Titrate IV . Q0M [facility] Rx#:[id number] Oral 480 Output: Urine 55 Other: Voiding Method Indwelling Catheter Toilet Toilet Urinal # Voids 2 1 ABP, PAP, CO, CI - Last Documented Arterial Blood Pressure 93/54 - Exam GENERAL EXAM: 35-year-old white male, on room air, breathing comfortably, drowsy but easily arousable to voice, answers appropriately comfortable in no apparent distress. HEAD: Normocephalic/atraumatic. EYES: Normal reaction of pupils, equal size. Conjunctiva pink, sclera white. NOSE: Clear with pink turbinates. THROAT: No erythema or exudates. NECK: No masses, no JVD, no thyroid enlargement, no adenopathy. CHEST: No chest wall deformity. Symmetrical expansion. LUNGS: Equal air entry with no crackles, wheeze, rhonchi or dullness. CVS: Regular rate and rhythm, normal S1 and S2, no gallops, no murmurs, no rubs ABDOMEN: Soft, nontender. No hepatosplenomegaly, normal bowel sounds, no guarding or rigidity. EXTREMITIES: No clubbing, no edema, no cyanosis, 2+ pulses and upper and lower extremities. MUSCULOSKELETAL: Muscle strength and tone normal. SPINE: No scoliosis or deformity SKIN: No rashes CENTRAL NERVOUS SYSTEM: Drowsy but easily arousable to voice No focal deficits, tone is normal in all 4 extremities. PSYCHIATRIC: Appropriate affect. Intact judgment and insight. - Labs CBC & Chem 7: 02/02/21 05:12 02/03/21 08:28 Labs: Abnormal Lab Results - Last 24 Hours (Table) 02/03/21 Range/Units 08:28 Chloride 108 H (98-107) mmol/L Creatinine 0.65 L (0.66-1.25) mg/dL Glucose 100 H (74-99) mg/dL AST 167 H (17-59) U/L ALT 239 H (4-49) U/L Assessment and Plan Plan: Assessment: #1. Acute hypoxemic respiratory failure secondary to ingestion of sensitizing and alcohol level greater than 400, with a decreased level of consciousness, patient was successfully weaned and extubated on 02/01/2021. Intubated on 01/31/2021 #2. History of schizoaffective disorder for which the patient was admitted to the mental health unit on 01/25/2021 #3. Acute alcoholic hepatitis, and LFTs are improving on today's labs #4. Anion gap metabolic acidosis, resolved Plan: No acute events overnight, patient is maintaining stable O2 saturations on room air, signs have been stable, no worsening dyspnea, no cough, became aspiration precautions, increase activity as tolerated, patient has been seen back psychiatry and cleared for discharge home with outpatient follow-up. I performed a history & physical examination of the patient and discussed their management with my nurse practitioner, Shari Tovar. I reviewed the nurse practitioner's note and agree with the documented findings and plan of care. Lung sounds are positive for clear breath sounds. The findings and the impression was discussed with the patient. I attest to the documentation by the nurse practitioner. Time with Patient: Less than 30
[2021-02-03] MEDS ORDERED: hydrOXYzine pamoate 25 MG CAP PO ONE (15:47)
[2021-02-03] MEDS: QUEtiapine 200 MG TAB PO SCH (20:07)
[2021-02-04 00:29] VITALS: RESP 16
[2021-02-04 00:30] VITALS: BP 132/75; PULSE 78; TEMP 98.2
== END 2021-02-04 00:45 | DRG 917 ==
LOC: 5NMEDONC 17:15 → 2SICU 19:15 → 4SSUR 02-02 23:48
PROVIDERS: ADMIT Hospitalist; ATTEND Hospitalist
PROC: 5A1945Z Respiratory Ventilation, 24-96 Consecutive Hours (ICD-10-PCS; principal; 2021-01-31)
PROC: 0BH17EZ Insertion of Endotracheal Airway into Trachea, Via Natural or Artificial Opening (ICD-10-PCS; 2021-01-31)
PROC: 0D9670Z Drainage of Stomach with Drainage Device, Via Natural or Artificial Opening (ICD-10-PCS; 2021-01-31)
PROC: 3E1G78Z Irrigation of Upper GI using Irrigating Substance, Via Natural or Artificial Opening (ICD-10-PCS; 2021-01-31)
DX: T49.0X1A Poisoning by local antifungal, anti-infective and anti-inflammatory drugs, accidental (unintentional), initial encounter (principal); J96.01 Acute respiratory failure with hypoxia; N17.9 Acute kidney failure, unspecified; E87.2 Acidosis; F11.23 Opioid dependence with withdrawal; F15.23 Other stimulant dependence with withdrawal; F10.239 Alcohol dependence with withdrawal, unspecified; F10.229 Alcohol dependence with intoxication, unspecified; F25.9 Schizoaffective disorder, unspecified; K70.10 Alcoholic hepatitis without ascites; Y90.8 Blood alcohol level of 240 mg/100 ml or more; E87.6 Hypokalemia; F06.4 Anxiety disorder due to known physiological condition; I10 Essential (primary) hypertension; M54.9 Dorsalgia, unspecified; F32.9 Major depressive disorder, single episode, unspecified; B19.20 Unspecified viral hepatitis C without hepatic coma; Z91.19 Patient's noncompliance with other medical treatment and regimen; K21.9 Gastro-esophageal reflux disease without esophagitis; G56.03 Carpal tunnel syndrome, bilateral upper limbs; Z91.5 Personal history of self-harm; F17.200 Nicotine dependence, unspecified, uncomplicated; Z71.6 Tobacco abuse counseling; Z79.899 Other long term (current) drug therapy; Z59.0 Homelessness; Z56.0 Unemployment, unspecified; Z82.49 Family history of ischemic heart disease and other diseases of the circulatory system; Y92.238 Other place in hospital as the place of occurrence of the external cause; Z82.61 Family history of arthritis
CPT/HCPCS: 71045; 80053; 80320; 81001; 82553; 82805; 83605; 83735; 83880; 83930; 83935; 84600; 85025; 87070; 87205; 93005; 94002; 94003; 94640; 94760

== ENCOUNTER 2021-02-04 00:47 | Inpatient (IN) | payer MEDICAID, OTHER ==
[2021-02-04] MEDS ORDERED: MAG HYDROX/AL HYDROX/SIMETH 30 ML CUP PO PRN (04:41)
[2021-02-04] MEDS ORDERED: MAGNESIUM HYDROXIDE 2,400 MG/10 ML CUP PO PRN (04:41)
[2021-02-04] MEDS ORDERED: LORazepam 1 MG TAB PO PRN (04:41)
[2021-02-04] MEDS: NICOTINE 21MG/24HR PATCH TRANSDERM SCH (09:19)
[2021-02-04] MEDS: ACETAMINOPHEN TAB 325 MG TAB PO PRN (09:20)
[2021-02-04] MEDS ORDERED: haloperidoL 5 MG TAB PO PRN (10:15)
[2021-02-04] MEDS ORDERED: HALOPERIDOL LACTATE 5 MG/ML 1 ML VIAL IM PRN (10:15)
[2021-02-04 10:16] VITALS: RESP 20
--- NOTE | 2021-02-04 10:31 | P.HP ---
Psychiatric H&P - . H&P Date: 02/04/21 History & Physical: Allergies Allergy/AdvReac Type Severity Reaction Status Date / Time No Known Allergies Allergy Verified 02/04/21 06:09 Vital Signs Temp 97.9 F 02/04/21 01:01 Pulse 83 02/04/21 01:01 Resp 18 02/04/21 01:01 BP 145/82 02/04/21 01:01 Pulse Ox 99 02/04/21 01:01 Intake & Output 02/03/21 02/04/21 02/04/21 18:59 06:59 18:59 Weight 85.1 kg 02/04/21 09:29 IDENTIFYING DATA: This patient is a 35-year-old male, who is homeless, unmarried who was admitted for polysubstance withdrawal and has a chronic history of polysubstance abuse and schizoaffective disorder. HPI: Patient presented initially to the hospital yesterday to the emergency department with complaints of stopping his heroin the day previous as he was trying to quit. Patient presented with complaints of feeling shaky and having sweats. Patient has a chronic history of polysubstance abuse and schizoaffective disorder. Patient is also chronically homeless. Patient was seen initially by psychiatric consultation liaison. He has poor insight and judgment. Patient went through polysubstance withdrawal and gradually became more agitated and paranoid believing that he owed money to a drug dealer and wanted to be released from the hospital. Patient required IM prn medications while on the medical floors and patient was transferred last night to inpatient psychiatry. Patient was on the inpatient psychiatric unit for several days and improving with regards to his symptoms and set to go to [facility] for substance use treatment however on 01/31/21 patient was noted to be pacing the hallways and went into the activity group room and stole the hand chairman emeritus at the front of the room and ran out of the room down the hallway drinking approximately half of the bottle. Patient was then transferred to medicine/ICU and intubated at that time. Patient was extubated on 02/01/21 and treated for withdrawal symptoms from alcohol intoxication. After being treated on the medical floors and being seen once again by psychiatric consultation patient was transferred back to the mental health unit for further treatment. Patient was seen this morning and has a one-to-one sitter at his side. He appeared to have mild improvement in his hygiene and grooming this morning and was laying in his bed. He offered no overnight complaints and states that he slept fairly last night. He claims that he feels less anxious and less depressed today. He continues to be concrete however was attempting to cooperate with the interview and questions. He was fairly directable. He states that he was "trying to get drunk" when he took the hand chairman emeritus while on the mental health unit. He states that at this time he is not hearing any voices talking to him. He claims that he would like to go to rehab upon discharge. He asked about several of his medications and wanted to be placed back on Haldol and BuSpar. He is denying any paranoia or delusions at this time. Patient admits to using cigarettes and heroin, and methamphetamine regularly. He is denying any alcohol use. Patient is denying any diarrhea, piloerection or any restlessness. He is denying any auditory or visual hallucinations and denied any suicidal or homicidal ideations intent or plan. PAST PSYCHIATRIC HISTORY: The patient has had numerous inpatient psychiatric admissions. His last admission was in October 2020. He has a history of 3 suicide attempts via overdoses and cutting his wrist. He is open with [facility] but noncompliant with treatment. Patient has an active substance use court order for treatment. Patient is currently on Seroquel, Effexor, Cogentin and Vistaril. Patient was previously on Invega Sustenna 234 mg monthly injections and his previous psychiatric hospitalization he was switched onto Haldol Decanoate 100 mg every 7 days IM injection. PMH: Hepatitis C, GERD ALLERGIES: as per EMR CHEMICAL DEPENDENCY HISTORY: as per HPI FAMILY PSYCHIATRIC/SUBSTANCE USE HISTORY: States that "everybody on my mother's side" had mental illness. SOCIAL HISTORY: Patient was born and raised in [facility] and is currently homeless and has no kids is unmarried and completed up to 12th grade. Patient claims that he is unemployed and does not collect any benefits. MENTAL STATUS EXAM: General Appearance: Patient appears to be older than stated age is alert, attempts to cooperate. Patient appears to have mildly improving hygiene and grooming. Wearing hospital gown. Behavior: Patient is laying in his bed without any agitated behavior. Constricted. Speech: Patient's speech is fluent and nonpressured. Monotone. Mood/Affect: Patient reports their mood is "fine", affect is incongruent and constricted Suicidality/Homicidality: Patient denies having any homicidal ideation intent or plan. Denies any suicidal thoughts no intent or plan Perceptions: Patient denies any visual hallucinations and denies any auditory hallucinations Though content/process: [place]iteside, poverty of content. Poor insight. Focused on his medications. Memory and concentration: AOX3, poor attention span, Judgment and insight: Chronically poor/impulsive, improving mildly STRENGTHS/WEAKNESSES: strength is that patient is resilient. Weakness is that patient has poor judgment, chronic substance abuse and mental health issues and is impulsive INTELLECT: average IMPRESSIONS: Schizoaffective disorder alcohol use disorder cannabis use disorder opioid use disorder, currently in withdrawal methamphetamine use disorder, currently in withdrawal Nicotine dependence PLAN: -Patient is admitted under involuntary status and is now on a deferral, she is admitted for stabilization of psychiatric symptoms and safety. Patient has signed medication consent and is placed in patient's chart. -Medications : Will start patient on Seroquel 100 mg daily +200 mg daily at bedtime for mood stabilization/psychosis. Patient will be receiving Haldol-D 150 mg IM prior to discharge from the hospital. BuSpar 10 mg twice a day for anxiety. We'll continue with Librium taper for alcohol withdrawal, 20 mg twice a day. Effexor increased to 75 mg daily for mood/anxiety. -Haldol Po and IM PRN for agitation/aggression -Patient was counselled on substance abuse and desired to cut back on use however was fairly superficial. He is currently on a substance use court order. -Patient was informed of the risks, benefits and side effects of the medication and patient verbally consented to taking the medications. Patient signed med consent form and was placed in chart. -Internal Medicine consult to perform medical evaluation and physical. -NRT - nicotine patch
[2021-02-04] MEDS: VENLAFAXINE HCL ER 75 MG CAP PO SCH (10:47)
[2021-02-04] MEDS: QUEtiapine 100 MG TAB PO SCH (10:47)
[2021-02-04] MEDS: busPIRone HCl 10 MG TAB PO SCH (20:37)
[2021-02-04] MEDS ORDERED: QUEtiapine 200 MG TAB PO SCH (21:00)
[2021-02-05] MEDS: NICOTINE 21MG/24HR PATCH TRANSDERM SCH (08:55)
[2021-02-05] MEDS: busPIRone HCl 10 MG TAB PO SCH (08:56)
[2021-02-05] MEDS: VENLAFAXINE HCL ER 75 MG CAP PO SCH (08:56)
[2021-02-05] MEDS: ACETAMINOPHEN TAB 325 MG TAB PO PRN (08:56)
[2021-02-05] MEDS: QUEtiapine 100 MG TAB PO SCH (08:56)
[2021-02-05 09:04] VITALS: BP 140/99; PULSE 114
[2021-02-05] MEDS ORDERED: HALOPERIDOL DECANOATE 100 MG/ML 1 ML VIAL IM STA (09:09)
[2021-02-05 09:51] LABS: Basophils # (A) 0.1 k/uL (0-0.2); Basophils % (A) 2 %; Eosinophils # (A) 0.3 k/uL (0-0.7); Eosinophils % (A) 5 %; HCT 40.4 % (39.0-53.0); HGB 13.7 gm/dL (13.0-17.5); Lymphocytes # (A) 1.3 k/uL (1.0-4.8); Lymphocytes % (A) 25 %; MCH 30.1 pg (25.0-35.0); MCHC 33.8 g/dL (31.0-37.0); Mean Platelet Volume 7.8; Monocytes # (A) 0.3 k/uL (0-1.0); Monocytes % (A) 6 %; Neutrophils # (A) 3.1 k/uL (1.3-7.7); Neutrophils % (A) 60 %; Platelet Count 252 k/uL (150-450); RBC 4.54 m/uL (4.30-5.90); RDW 13.5 % (11.5-15.5); WBC 5.2 k/uL (3.8-10.6)
--- NOTE | 2021-02-05 09:53 | P.CONS ---
History of Present Illness - History of Present Illness This is a pleasant 35 years old male with past medical history of schizoaffe ctive disorder, substance abuse and noncompliance with treatment. History of IV drug abuse He was recently hospitalized to the general medical floor 01/21-01/25, next day he was admitted to the mental health unit on 01/26 for signs and symptoms of heroin withdrawal. He is homeless, unmarried, history of DUI, unemployed and he has a public guardian. On admission he was described as disheveled and has poor grooming eye contact appropriate and speech minimal. on 01/31 afternoon patient grabbed a bottle of HAND math and physics instructor and ran in the hallway, and alarm was sounded and the patient has consumed over 270 to 350 mL of 540 milliliter bottle. Patient stated to staff that he drank the hand math and physics instructor because he was grieving for alcohol but not trying to kill himself Patient a team was called and because he was altered mental status, diaphoretic, minimally responsive to pain and shallow breathing, it was intubated and sent to the ICU. The patient got extubated successfully on 02/01. Patient remains clinically stable. Pulmonary/critical care team were following the case closely. Vacuum Applicator Operator also was consulted but patient did not need any hemodialysis as his creatinine was not elevated at 0.4, and patient is back to normal mentation as he is alert, awake and follow commands and oriented to the surrounding and to time, place and person. However he got agitated at times, acting out, lying on the floor. Patient needed a sitter at that site for safety. Patient was transferred to the mental health unit for further treatment. Today when I saw him he is calm in bed with sitter at bedside has significant tremor in his upper extremity from withdrawal. He is getting Librium. He denies chest pain or dyspnea, no abdominal pain. No nausea or vomiting. No adequate weakness or numbness. No fever. Vital signs stable. Hemoglobin is normal at 13.7. WBC is normal at 5.2 Review of Systems CONSTITUTIONAL: No fever, no malaise, no fatigue. HEENT: No recent visual problems or hearing problems. Denied any sore throat. CARDIOVASCULAR: No orthopnea, PND, no palpitations, no syncope. PULMONARY: No shortness of breath, no cough, no hemoptysis. GASTROINTESTINAL: No diarrhea, no nausea, no vomiting, no abdominal pain. Normoactive bowel sounds. NEUROLOGICAL: No headaches, no weakness, no numbness. HEMATOLOGICAL: Denies any bleeding or petechiae. GENITOURINARY: Denies any burning micturition, frequency, or urgency. MUSCULOSKELETAL/RHEUMATOLOGICAL: Denies any joint pain, swelling, or any muscle pain. ENDOCRINE: Denies any polyuria or polydipsia. Past Medical History Past Medical History: GERD/Reflux, Hypertension, Liver Disease Additional Past Medical History / Comment(s): Hepatitis C, DDD, back pain, bilateral carpel tunnel syndrome. He reports that he has heart disease that was found when he had kidney problems but he denies having a stress test or cardiac catheterization. History of Any Multi-Drug Resistant Organisms: None Reported MDRO Source:: unknown Past Surgical History: No Surgical Hx Reported Past Anesthesia/Blood Transfusion Reactions: Unable to Obtain Additional Past Anesthesia/Blood Transfusion Reaction / Comm: Pt states he has never had surgery. Past Psychological History: Unable to Obtain, Anxiety, Depression Smoking Status: Current every day smoker Past Alcohol Use History: None Reported Past Drug Use History: Heroin, Methamphetamine - Past Family History Father Family Medical History: Coronary Artery Disease (CAD) Additional Family Medical History / Comment(s): Father is . Mother Family Medical History: Rheumatoid Arthritis (RA) Additional Family Medical History / Comment(s): Mother is . Medications and Allergies Home Medications Medication Instructions Recorded Confirmed Type Acetaminophen Tab [Tylenol] 650 mg PO Q4HR PRN tab 02/05/21 Rx Haloperidol Decanoate [Haldol D] 150 mg IM ONCE #1 vial 02/05/21 Rx Nicotine 21Mg/24Hr Patch [Habitrol] 1 patch TRANSDERM DAILY 14 Days 02/05/21 Rx patch QUEtiapine [SEROquel] 100 mg PO DAILY 30 Days tab 02/05/21 Rx QUEtiapine [SEROquel] 200 mg PO HS 30 Days tab 02/05/21 Rx Venlafaxine HCl ER [Effexor XR] 75 mg PO DAILY 30 Days cap.er.24h 02/05/21 Rx busPIRone HCl [Buspar] 10 mg PO TID 30 Days tab 02/05/21 Rx hydrOXYzine pamoate [Vistaril] 50 mg PO BID PRN 30 Days cap 02/05/21 Rx Allergies Allergy/AdvReac Type Severity Reaction Status Date / Time No Known Allergies Allergy Verified 02/04/21 06:09 Physical Exam Vitals: Vital Signs Temp Pulse Pulse Resp BP Pulse Ox 02/04/21 09:20 98.0 F 99 20 153/91 98 02/04/21 01:01 97.9 F 83 18 145/82 99 Intake and Output 02/03/21 02/04/21 02/04/21 22:59 06:59 14:59 Other: Weight 85.1 kg GENERAL: The patient is alert and oriented x3, not in any acute distress. Well developed, well nourished. HEENT: Pupils are round and equally reacting to light. EOMI. No scleral icterus. No conjunctival pallor. Normocephalic, atraumatic. No pharyngeal erythema. No thyromegaly. CARDIOVASCULAR: S1 and S2 present. No murmurs, rubs, or gallops. PULMONARY: Chest is clear to auscultation, no wheezing or crackles. ABDOMEN: Soft, nontender, nondistended, normoactive bowel sounds. No palpable organomegaly. MUSCULOSKELETAL: No joint swelling or deformity. EXTREMITIES: No cyanosis, clubbing, or pedal edema. -NEUROLOGICAL: Gross neurological examination did not reveal any focal deficits. Upper extremity shakiness and tremor SKIN: No rashes. no petechiae. Assessment and Plan Assessment: Substance abuse, and ingestion of hand math and physics instructor for its alcohol content and coz he wanted to be drunk , going through alcohol withdrawal Heroin and methamphetamine addiction and withdrawal Alcohol abuse IV drug abuse transaminitis schizoaffective disorder homeless History of noncompliance to treatment History of IV drug abuse Hepatitis C history of depression and anxiety, not an active issue has a public guardian Plan: This is a pleasant 35 years old male was admitted to the mental health unit for seasonal affective disorder, substance abuse and withdrawal, behavioral abnormality. Continue management of the psychiatric illnesses as per psych the primary team. Continue with Librium and vitamins including thiamine for alcohol withdrawal. Labs and medication were reviewed.. Continue same treatment. Continue with symptomatic treatment. Resume home medication. Monitor lytes and vitals. DVT and GI prophylaxis. Further recommendationsas per clinical course of the umu t DVT prophylaxis: Patient is mobile and no need, continue with SCDs. We recommend patient follow up with PCP in one week after discharge, patient was instructed with this. Thank you for consulting us and we will see the patient on an as needed basis, please contact us for any further questions
[2021-02-05] MEDS ORDERED: THIAMINE 100 MG TAB PO SCH (10:00)
[2021-02-05 10:10] LABS: ALT 433 U/L (4-49); AST 374 U/L (17-59); African American GFR (CKD) >90 (>60 ml/min/1.73 sqM); Albumin 4.1 g/dL (3.5-5.0); Alkaline Phosphatase 60 U/L (38-126); Anion Gap 8 mmol/L; Blood Urea Nitrogen 15 mg/dL (9-20); Calcium 9.6 mg/dL (8.4-10.2); Carbon Dioxide 23 mmol/L (22-30); Chloride 108 mmol/L (98-107); Glucose 131 mg/dL (74-99); Non-African American GFR(CKD) >90 (>60 ml/min/1.73 sqM); Potassium 4.4 mmol/L (3.5-5.1); Sodium 139 mmol/L (137-145); Total Bilirubin 0.4 mg/dL (0.2-1.3); Total Protein 8.1 g/dL (6.3-8.2)
--- NOTE | 2021-02-05 10:15 | P.DS ---
Providers Date of admission: 02/04/21 00:47 Expected date of discharge: 02/05/21 Attending physician: Gamal Ruvalcaba MD Consults: 02/04/21 04:41 Consult Physician Routine Consulting Provider: Abelardo Potts Consult Reason/Comments: h and p Do you want consulting provider notified?: Yes, Notify in am Primary care physician: Stated None - Discharge Diagnosis(es) (1) Schizoaffective disorder Current Visit: Yes Status: Acute Priority: High (2) Alcohol use disorder Current Visit: Yes Status: Acute Priority: Medium (3) Cannabis use disorder, mild, abuse Current Visit: Yes Status: Acute Priority: Medium (4) Opioid use disorder Current Visit: Yes Status: Acute Priority: Medium (5) Methamphetamine abuse Current Visit: Yes Status: Acute Priority: Medium (6) Nicotine dependence Current Visit: Yes Status: Acute Priority: Low Hospital Course: Admission HPI: Admission note was completed by sheet writer "This patient is a 35-year-old male, who is homeless, unmarried who was admitted for polysubstance withdrawal and has a chronic history of polysubstance abuse and schizoaffective disorder. Patient presented initially to the hospital yesterday to the emergency department with complaints of stopping his heroin the day previous as he was trying to quit. Patient presented with complaints of feeling shaky and having sweats. Patient has a chronic history of polysubstance abuse and schizoaffective disorder. Patient is also chronically homeless. Patient was seen initially by psychiatric consultation liaison. He has poor insight and judgment. Patient went through polysubstance withdrawal and gradually became more agitated and paranoid believing that he owed money to a drug dealer and wanted to be released from the hospital. Patient required IM prn medications while on the medical floors and patient was transferred last night to inpatient psychiatry. Patient was on the inpatient psychiatric unit for several days and improving with regards to his symptoms and set to go to [facility] for substance use treatment however on 01/31/21 patient was noted to be pacing the hallways and went into the activity group room and stole the hand drapery worker at the front of the room and ran out of the room down the hallway drinking approximately half of the bottle. Patient was then transferred to medicine/ICU and intubated at that time. Patient was extubated on 02/01/21 and treated for withdrawal symptoms from alcohol intoxication. After being treated on the medical floors and being seen once again by psychiatric consultation patient was transferred back to the mental health unit for further treatment. Patient was seen this morning and has a one-to-one sitter at his side. He appeared to have mild improvement in his hygiene and grooming this morning and was laying in his bed. He offered no overnight complaints and states that he slept fairly last night. He claims that he feels less anxious and less depressed today. He continues to be concrete however was attempting to cooperate with the interview and questions. He was fairly directable. He states that he was "trying to get drunk" when he took the hand drapery worker while on the mental health unit. He states that at this time he is not hearing any voices talking to him. He claims that he would like to go to rehab upon discharge. He asked about several of his medications and wanted to be placed back on Haldol and BuSpar. He is denying any paranoia or delusions at this time. Patient admits to using cigarettes and heroin, and methamphetamine regularly. He is denying any alcohol use. Patient is denying any diarrhea, piloerection or any restlessness. He is denying any auditory or visual hallucinations and denied any suicidal or homicidal ideations intent or plan." Hospital course: Upon admission to the unit patient was initially anxious, depressed and suicidal along with hearing voices. Patient was however admitted involuntarily and a second clinical certificate was completed and faxed to the courts. Patient ended up deferring and agreeing to treatment with his city controller. Patient got along fairly well with other patients on the unit and was not aggressive or agitated with others. Patient was noted to be frequently asking for different prn meds at the nurse's desk, med seeking. Patient was compliant with the medications and denied any side effects throughout hospital course. Patient was started back on Seroquel 100 mg daily +200 mg daily at bedtime for mood stabilization/insomnia/anxiety. Patient was also given a dose of Haldol D on day of discharge 150 mg IM to ensure compliance. Patient's next dose of 150 mg of Haldol D is due on 02/26/21. Patient was also restarted on Effexor 75 mg daily for mood/anxiety. Vistaril when necessary for anxiety. BuSpar 10 mg 3 times a day for anxiety. Patient was placed on ciwa with when necessary Ativan for alcohol withdrawal and also placed on a scheduled Librium taper for withdrawal symptoms. Patient did not engage much with group therapy or activities during his hospitalization. Patient was also seen by medical team for history and physical exam. Throughout the course of the hospitalization patient gradually improved with regards to mood, anxiety, hearing voices, sleep and return back to his baseline level of functioning. On the day of discharge patient denied any suicidal or homicidal ideations intent or plan denied any auditory or visual hallucinations. Patient endorsed wanting to live for his future and sobriety. The patient denied any access to guns or weapons. Patient denied any paranoia and did not endorse any delusions. Patient does have a significant history of substance abuse and was counseled on abstaining from all substances including alcohol and marijuana. Patient is on a substance use court order. Patient was also counseled on the medications and need for regular compliance and was encouraged to follow-up with their outpatient appointment for mental health and also for primary care. Due to patient having an outstanding warrant for his arrest, social services manager will be arranging with local police department for pickling grader upon discharge. Mental status exam: General Appearance: Patient appears to be stated age is alert, pleasant, and attempts to be cooperative. Patient is in no acute distress and has improved hygiene and grooming Behavior: Patient is calmly seated without any agitated behavior. Speech: Patient's speech is fluent and nonpressured. Mood/Affect: Patient reports their mood is "good", affect is congruent and constricted. Suicidality/Homicidality: Patient denies having any suicidal or homicidal ideation intent or plan. Perceptions: Patient denies any auditory or visual hallucinations. Though content/process: There is no evidence of any delusional thought content. Patient is logical and concrete. Memory and concentration: AOX3, grossly intact for the purposes of this session. Can spell "WORLD" backwards correctly. Judgment and insight: chronically poor, however has improved with guarded prognosis Impression: Schizoaffective disorder Alcohol use disorder Cannabis use disorder Opioid use disorder Methamphetamine abuse Nicotine dependence Plan: -Continue with discharge today as patient has improved and stabilized psychiatrically and is not currently an imminent threat to himself and/or others. Patient will remain at chronically elevated risk for harm to self and/or others due to his impulsivity and polysubstance abuse. -Continue medications: Seroquel 100 mg daily +200 mg daily at bedtime for mood stabilization/insomnia/anxiety. Patient received Haldol D1 150 mg IM on day of discharge and will be due for his next 150 mg dose on 02/26/21 in every 3 weeks thereafter. Rationale for patient being on 2 antipsychotics is that patient requires a long-acting injection due to noncompliance and the Seroquel is mainly for mood stabilization/insomnia and anxiety and can be attempted to be titrated down once patient is more stable as an outpatient. Continue with BuSpar 10 mg 3 times a day for anxiety, Effexor 75 mg daily for mood/anxiety, Vistaril 50 mg twice a day when necessary for anxiety. -Patient was counseled on the need for medication compliance and appropriate follow-up at mental health and also primary care for medical issues. Patient verbalized understanding and agreed. -Social work to arrange with local police department for pickup upon discharge as patient has an outstanding warrant. Social work also to arrange for patients follow up appointments with [facility] for psychiatric care along with follow up with primary care provider. Patient is currently on an active substance use treatment order. -Patient counseled on abstaining from recreational drugs and marijuana and alcohol. Was informed/educated on the adverse effects on their physical and mental health. Patient verbally agreed and understood. -Patient was instructed to return to the hospital or seek immediate medical care if their psychiatric or medical symptoms do worsen or reoccur. Allergies Allergy/AdvReac Type Severity Reaction Status Date / Time No Known Allergies Allergy Verified 02/04/21 06:09 Laboratory Results WBC 5.2 k/uL (3.8-10.6) 02/05/21 09:25 RBC 4.54 m/uL (4.30-5.90) 02/05/21 09:25 Hgb 13.7 gm/dL (13.0-17.5) 02/05/21 09:25 Hct 40.4 % (39.0-53.0) 02/05/21 09:25 MCV 89.0 fL (80.0-100.0) 02/05/21 09:25 MCH 30.1 pg (25.0-35.0) 02/05/21 09:25 MCHC 33.8 g/dL (31.0-37.0) 02/05/21 09:25 RDW 13.5 % (11.5-15.5) 02/05/21 09:25 Plt Count 252 k/uL (150-450) 02/05/21 09:25 MPV 7.8 02/05/21 09:25 Neutrophils % 60 % 02/05/21 09:25 Lymphocytes % 25 % 02/05/21 09:25 Monocytes % 6 % 02/05/21 09:25 Eosinophils % 5 % 02/05/21 09:25 Basophils % 2 % 02/05/21 09:25 Neutrophils # 3.1 k/uL (1.3-7.7) 02/05/21 09:25 Lymphocytes # 1.3 k/uL (1.0-4.8) 02/05/21 09:25 Monocytes # 0.3 k/uL (0-1.0) 02/05/21 09:25 Eosinophils # 0.3 k/uL (0-0.7) 02/05/21 09:25 Basophils # 0.1 k/uL (0-0.2) 02/05/21 09:25 Sodium 139 mmol/L (137-145) 02/05/21 09:25 Potassium 4.4 mmol/L (3.5-5.1) 02/05/21 09:25 Chloride 108 mmol/L (98-107) H 02/05/21 09:25 Carbon Dioxide 23 mmol/L (22-30) 02/05/21 09:25 Anion Gap 8 mmol/L 02/05/21 09:25 BUN 15 mg/dL (9-20) 02/05/21 09:25 Creatinine 0.64 mg/dL (0.66-1.25) L 02/05/21 09:25 Est GFR (CKD-EPI)AfAm >90 (>60 ml/min/1.73 sqM) 02/05/21 09:25 Est GFR (CKD-EPI)NonAf >90 (>60 ml/min/1.73 sqM) 02/05/21 09:25 Glucose 131 mg/dL (74-99) H 02/05/21 09:25 Calcium 9.6 mg/dL (8.4-10.2) 02/05/21 09:25 Total Bilirubin 0.4 mg/dL (0.2-1.3) 02/05/21 09:25 AST 374 U/L (17-59) H 02/05/21 09:25 ALT 433 U/L (4-49) H 02/05/21 09:25 Alkaline Phosphatase 60 U/L (38-126) 02/05/21 09:25 Total Protein 8.1 g/dL (6.3-8.2) 02/05/21 09:25 Albumin 4.1 g/dL (3.5-5.0) 02/05/21 09:25 Vital Signs Temp 98.1 F 02/04/21 17:27 Pulse 114 H 02/05/21 09:03 Resp 20 02/04/21 20:00 BP 140/99 02/05/21 09:03 Pulse Ox 98 02/04/21 16:20 Patient Condition at Discharge: Stable Plan - Discharge Summary New Discharge Prescriptions: New busPIRone HCl [Buspar] 10 mg PO TID 30 Days tab Venlafaxine HCl ER [Effexor XR] 75 mg PO DAILY 30 Days cap.er.24h Nicotine 21Mg/24Hr Patch [Habitrol] 1 patch TRANSDERM DAILY 14 Days patch Haloperidol Decanoate [Haldol D] 150 mg IM ONCE #1 vial QUEtiapine [SEROquel] 100 mg PO DAILY 30 Days tab QUEtiapine [SEROquel] 200 mg PO HS 30 Days tab Acetaminophen Tab [Tylenol] 650 mg PO Q4HR PRN tab PRN Reason: Pain/Discomfort hydrOXYzine pamoate [Vistaril] 50 mg PO BID PRN 30 Days cap PRN Reason: Anxiety Discontinued Nicotine 14Mg/24Hr Patch [Habitrol] 1 patch TRANSDERM DAILY 14 Days patch Acetaminophen Tab [Tylenol] 650 mg PO Q4HR PRN tab PRN Reason: Pain/Discomfort Venlafaxine HCl ER [Effexor XR] 75 mg PO DAILY #30 cap.er.24h Haloperidol Decanoate [Haldol D] 100 mg IM Q7D #1 vial QUEtiapine [SEROquel] 50 mg PO DAILY #30 tab QUEtiapine [SEROquel] 100 mg PO HS #30 tab hydrOXYzine pamoate [Vistaril] 25 mg PO BID PRN 30 Days cap PRN Reason: Anxiety cloNIDine HCL [Catapres] 0.1 mg PO QID #0 tab Folic Acid 1 mg PO DAILY@1200 tab Multivitamins, Thera [Multivitamin (formulary)] 1 each PO DAILY@1200 tab Pantoprazole [Protonix] 40 mg PO AC-[id number] tablet. Thiamine [Vitamin B-1] 100 mg PO DAILY@1200 tab Discharge Medication List Acetaminophen Tab [Tylenol] 650 mg PO Q4HR PRN tab 02/05/21 [Rx] Haloperidol Decanoate [Haldol D] 150 mg IM ONCE #1 vial 02/05/21 [Rx] Nicotine 21Mg/24Hr Patch [Habitrol] 1 patch TRANSDERM DAILY 14 Days patch 02/05/21 [Rx] QUEtiapine [SEROquel] 100 mg PO DAILY 30 Days tab 02/05/21 [Rx] QUEtiapine [SEROquel] 200 mg PO HS 30 Days tab 02/05/21 [Rx] Venlafaxine HCl ER [Effexor XR] 75 mg PO DAILY 30 Days cap.er.24h 02/05/21 [Rx] busPIRone HCl [Buspar] 10 mg PO TID 30 Days tab 02/05/21 [Rx] hydrOXYzine pamoate [Vistaril] 50 mg PO BID PRN 30 Days cap 02/05/21 [Rx] Patient Instructions/Handouts: How to Stop Smoking (DC), Schizoaffective Disorder (DC), Abuse of Alcohol (DC) Activity/Diet/Wound Care/Special Instructions: Activity and diet as tolerated. Avoid the use of street drugs and alcohol. Take all medications as prescribed. When you are in need of refills on your medications please contact your medical provider and/or outpatient psychiatrist to have this done. Please go to scheduled outpatient appointment for aftercare treatment. If symptoms return or become worse, call the crisis line at and/or go to the nearest emergency room for evaluation. Discharge Disposition: OTHER INSTITUTION NOT DEFINED
[2021-02-05] MEDS ORDERED: hydrOXYzine pamoate 25 MG CAP PO ONE ×2 (10:30)
[2021-02-05 11:02] LABS: Cholesterol 150 mg/dL (<200); HDL Cholesterol 43 mg/dL (40-60); LDL Cholesterol,Calculated 96 mg/dL (0-99); Triglycerides 57 mg/dL (<150)
[2021-02-05 11:12] VITALS: TEMP 98.5
[2021-02-05] MEDS ORDERED: busPIRone HCl 10 MG TAB PO SCH (16:00)
[2021-02-05 16:55] LABS: Hemoglobin A1C 4.6 % (4.0-6.0)
== END 2021-02-05 13:55 | disposition home or self-care (01) | DRG 885 ==
LOC: 3MHU 00:47
PROVIDERS: ADMIT Psychiatry & Neurology Psychiatry; ATTEND Psychiatry & Neurology Psychiatry
DX: F25.9 Schizoaffective disorder, unspecified (principal); F15.13 Other stimulant abuse with withdrawal; F11.93 Opioid use, unspecified with withdrawal; F10.139 Alcohol abuse with withdrawal, unspecified; B19.20 Unspecified viral hepatitis C without hepatic coma; Z59.0 Homelessness; F10.129 Alcohol abuse with intoxication, unspecified; F12.10 Cannabis abuse, uncomplicated; K21.9 Gastro-esophageal reflux disease without esophagitis; F17.200 Nicotine dependence, unspecified, uncomplicated; Z71.6 Tobacco abuse counseling; F41.9 Anxiety disorder, unspecified; G47.00 Insomnia, unspecified; I10 Essential (primary) hypertension; M54.9 Dorsalgia, unspecified; R45.87 Impulsiveness; R74.01 Elevation of levels of liver transaminase levels; G56.03 Carpal tunnel syndrome, bilateral upper limbs; Z91.19 Patient's noncompliance with other medical treatment and regimen; Z79.899 Other long term (current) drug therapy; Z91.5 Personal history of self-harm; Z56.0 Unemployment, unspecified; Z82.61 Family history of arthritis; Z82.49 Family history of ischemic heart disease and other diseases of the circulatory system
CPT/HCPCS: 80053; 80061; 83036; 84443; 85025

== ENCOUNTER 2021-07-05 18:29 | Emergency (ER) | payer OTHER ==
[2021-07-05 18:49] VITALS: BP 139/87; PULSE 110; RESP 108; TEMP 97.9
[2021-07-05] MEDS ORDERED: CEPHALEXIN 500MG STARTER PACK 4 CAP BTL PO STA (18:49)
[2021-07-05] MEDS ORDERED: SULFAMETH-TMP DS STARTER PACK 2 TAB BTL PO STA (18:49)
--- NOTE | 2021-07-05 18:54 | ED ---
General Adult HPI - General Chief complaint: Skin/Abscess/Foreign Body Stated complaint: Hand infection Time Seen by Provider: 07/05/21 18:45 Source: patient, RN notes reviewed, old records reviewed Mode of arrival: ambulatory Limitations: no limitations - History of Present Illness Initial comments: 35-year-old male presenting with hand swelling after using IV drugs. Patient concern for infection. He states he's had attempts at injecting IV heroin into his hand veins. He noticed some redness in both hands and was concern for infection. He denies suicidal or homicidal attempts. He states this was recreational he regrets this decision. He denies fever or systemic symptoms. Denies pain with movement of the fingers. Both injections sites were on the dorsal surface of his hands. - Related Data Previous Rx's Medication Instructions Recorded Acetaminophen Tab [Tylenol] 650 mg PO Q4HR PRN tab 02/05/21 Haloperidol Decanoate [Haldol D] 150 mg IM ONCE #1 vial 02/05/21 Nicotine 21Mg/24Hr Patch [Habitrol] 1 patch TRANSDERM DAILY 14 Days 02/05/21 patch QUEtiapine [SEROquel] 100 mg PO DAILY 30 Days tab 02/05/21 QUEtiapine [SEROquel] 200 mg PO HS 30 Days tab 02/05/21 Venlafaxine HCl ER [Effexor XR] 75 mg PO DAILY 30 Days cap.er.24h 02/05/21 busPIRone HCl [Buspar] 10 mg PO TID 30 Days tab 02/05/21 hydrOXYzine pamoate [Vistaril] 50 mg PO BID PRN 30 Days cap 02/05/21 Cephalexin [Keflex] 500 mg PO QID 10 Days #40 cap 07/05/21 Sulfamethox-Tmp 800-160Mg [Bactrim 1 tab PO Q12HR #28 tab 07/05/21 DS 800-160 mg] Allergies Allergy/AdvReac Type Severity Reaction Status Date / Time No Known Allergies Allergy Verified 07/05/21 18:40 Review of Systems ROS Statement: Those systems with pertinent positive or pertinent negative responses have been documented in the HPI. ROS Other: All systems not noted in ROS Statement are negative. Past Medical History Past Medical History: GERD/Reflux, Hypertension, Liver Disease Additional Past Medical History / Comment(s): Hepatitis C, DDD, back pain, bilateral carpel tunnel syndrome. He reports that he has heart disease that was found when he had kidney problems but he denies having a stress test or cardiac catheterization. History of Any Multi-Drug Resistant Organisms: None Reported MDRO Source:: unknown Past Surgical History: No Surgical Hx Reported Past Anesthesia/Blood Transfusion Reactions: Unable to Obtain Additional Past Anesthesia/Blood Transfusion Reaction / Comment(s): Pt states he has never had surgery. Past Psychological History: Unable to Obtain, Anxiety, Depression Smoking Status: Current every day smoker Past Alcohol Use History: Rare Past Drug Use History: Heroin, Methamphetamine - Past Family History Father Family Medical History: Coronary Artery Disease (CAD) Additional Family Medical History / Comment(s): Father is . Mother Family Medical History: Rheumatoid Arthritis (RA) Additional Family Medical History / Comment(s): Mother is . General Exam Limitations: no limitations General appearance: alert, in no apparent distress Head exam: Present: atraumatic, normocephalic Eye exam: Present: normal appearance, PERRL ENT exam: Present: normal exam Neck exam: Present: normal inspection. Absent: tenderness, meningismus Respiratory exam: Present: normal lung sounds bilaterally. Absent: respiratory distress, wheezes Cardiovascular Exam: Present: regular rate, normal rhythm GI/Abdominal exam: Present: soft. Absent: distended, tenderness Extremities exam: Present: other (Left hand:, Mild erythema on the dorsal surface, no abscess, no induration, no fluctuance, normal range of motion of all digits with no signs of extensor synovitis. Right hand. There is mild soft tissue swelling on the dorsum of the hand. No pain with range of motion of the fingers. No drainable) Course Vital Signs 07/05/21 18:35 Temperature 97.9 F Pulse Rate 110 H Respiratory 108 H Rate Blood Pressure 139/87 O2 Sat by Pulse 96 Oximetry Medical Decision Making - Medical Decision Making 35-year-old male with possible cellulitis, the dorsum of the right hand predominantly. There is mild erythema on the dorsum of the left hand. There is no drainable abscess. There is no sign of the extensor synovitis. Patient is given strict return parameters. He is started on Keflex and Bactrim. Disposition Clinical Impression: Cellulitis of hand Disposition: HOME SELF-CARE Condition: Fair Instructions (If sedation given, give patient instructions): Cellulitis (ED) Additional Instructions: Please return to the emergency department with worsening symptoms. Please do not use IV drugs. Please monitor for signs of worsening infection. Prescriptions: Sulfamethox-Tmp 800-160Mg [Bactrim DS 800-160 mg] 1 tab PO Q12HR #28 tab Cephalexin [Keflex] 500 mg PO QID 10 Days #40 cap Is patient prescribed a controlled substance at d/c from ED?: No Referrals: None,Stated [Primary Care Provider] - 1-2 days Jocelyn Ventura MD [REFERRING] - 1-2 days Time of Disposition: 18:53
== END 2021-07-05 19:03 | disposition home or self-care (01) ==
LOC: EC 18:29
DX: L03.114 Cellulitis of left upper limb (principal); I10 Essential (primary) hypertension; F17.200 Nicotine dependence, unspecified, uncomplicated
CPT/HCPCS: 99283

== ENCOUNTER 2021-07-13 16:31 | Inpatient (IN) | payer MEDICAID ==
[2021-07-13] MEDS ORDERED: MAG HYDROX/AL HYDROX/SIMETH 30 ML CUP PO PRN (18:07)
[2021-07-13] MEDS ORDERED: ACETAMINOPHEN TAB 325 MG TAB PO PRN (18:07)
[2021-07-13] MEDS ORDERED: MAGNESIUM HYDROXIDE 2,400 MG/10 ML CUP PO PRN (18:07)
[2021-07-13] MEDS ORDERED: HALOPERIDOL LACTATE 5 MG/ML 1 ML VIAL ONE (18:10)
[2021-07-13] MEDS ORDERED: LORazepam 2 MG/ML INJ IM PRN (18:13)
[2021-07-13] MEDS: HALOPERIDOL LACTATE 5 MG/ML 1 ML VIAL IM PRN (18:37)
[2021-07-13] MEDS: busPIRone HCl 5 MG TAB PO SCH (20:32)
[2021-07-13] MEDS: hydrOXYzine pamoate 25 MG CAP PO SCH (20:32)
[2021-07-13] MEDS ORDERED: diazePAM 5 MG TAB PO ONE (21:00)
[2021-07-14] MEDS: LORazepam 1 MG TAB PO PRN ×3 (03:13→18:19)
[2021-07-14] MEDS: haloperidoL 5 MG TAB PO PRN ×4 (03:13→21:00)
[2021-07-14 07:54] LABS: Basophils % (A) 1 %; Eosinophils # (A) 0.2 k/uL (0-0.7); Eosinophils % (A) 5 %; HCT 36.7 % (39.0-53.0); HGB 12.3 gm/dL (13.0-17.5); Lymphocytes # (A) 1.2 k/uL (1.0-4.8); Lymphocytes % (A) 27 %; MCHC 33.4 g/dL (31.0-37.0); MCV 89.8 fL (80.0-100.0); Mean Platelet Volume 8.6; Monocytes # (A) 0.3 k/uL (0-1.0); Monocytes % (A) 7 %; Neutrophils # (A) 2.5 k/uL (1.3-7.7); Neutrophils % (A) 56 %; Platelet Count 145 k/uL (150-450); RBC 4.09 m/uL (4.30-5.90); RDW 15.7 % (11.5-15.5); WBC 4.5 k/uL (3.8-10.6)
[2021-07-14 08:01] LABS: ALT 178 U/L (4-49); AST 182 U/L (17-59); African American GFR (CKD) >90 (>60 ml/min/1.73 sqM); Albumin 2.8 g/dL (3.5-5.0); Alkaline Phosphatase 38 U/L (38-126); Anion Gap 5 mmol/L; Blood Urea Nitrogen 11 mg/dL (9-20); Calcium 8.8 mg/dL (8.4-10.2); Carbon Dioxide 26 mmol/L (22-30); Chloride 110 mmol/L (98-107); Glucose 98 mg/dL (74-99); Non-African American GFR(CKD) >90 (>60 ml/min/1.73 sqM); Potassium 3.9 mmol/L (3.5-5.1); Sodium 141 mmol/L (137-145); Total Bilirubin <0.1 mg/dL (0.2-1.3)
[2021-07-14] MEDS: hydrOXYzine pamoate 25 MG CAP PO SCH ×2 (08:21→20:25)
[2021-07-14] MEDS: NICOTINE 14MG/24HR PATCH TRANSDERM SCH (08:21)
[2021-07-14] MEDS: VENLAFAXINE HCL ER 75 MG CAP PO SCH (08:21)
[2021-07-14] MEDS: busPIRone HCl 5 MG TAB PO SCH ×2 (08:21→20:25)
--- NOTE | 2021-07-14 10:23 | P.HP ---
Psychiatric H&P - . H&P Date: 07/14/21 History & Physical: Allergies Allergy/AdvReac Type Severity Reaction Status Date / Time No Known Allergies Allergy Unverified 07/08/21 18:05 Vital Signs Temp 97.5 F L 07/14/21 08:00 Pulse 94 07/14/21 08:00 Resp 16 07/14/21 08:00 BP 132/82 07/14/21 08:00 Pulse Ox 96 07/14/21 08:00 Intake & Output 07/13/21 07/14/21 07/14/21 18:59 06:59 18:59 Weight 75.778 kg Laboratory Last Values WBC 4.5 k/uL (3.8-10.6) 07/14/21 06:59 RBC 4.09 m/uL (4.30-5.90) L 07/14/21 06:59 Hgb 12.3 gm/dL (13.0-17.5) L 07/14/21 06:59 Hct 36.7 % (39.0-53.0) L 07/14/21 06:59 MCV 89.8 fL (80.0-100.0) 07/14/21 06:59 MCH 30.0 pg (25.0-35.0) 07/14/21 06:59 MCHC 33.4 g/dL (31.0-37.0) 07/14/21 06:59 RDW 15.7 % (11.5-15.5) H 07/14/21 06:59 Plt Count 145 k/uL (150-450) L 07/14/21 06:59 MPV 8.6 07/14/21 06:59 Neutrophils % 56 % 07/14/21 06:59 Lymphocytes % 27 % 07/14/21 06:59 Monocytes % 7 % 07/14/21 06:59 Eosinophils % 5 % 07/14/21 06:59 Basophils % 1 % 07/14/21 06:59 Neutrophils # 2.5 k/uL (1.3-7.7) 07/14/21 06:59 Lymphocytes # 1.2 k/uL (1.0-4.8) 07/14/21 06:59 Monocytes # 0.3 k/uL (0-1.0) 07/14/21 06:59 Eosinophils # 0.2 k/uL (0-0.7) 07/14/21 06:59 Basophils # 0.0 k/uL (0-0.2) 07/14/21 06:59 Sodium 141 mmol/L (137-145) 07/14/21 06:59 Potassium 3.9 mmol/L (3.5-5.1) 07/14/21 06:59 Chloride 110 mmol/L (98-107) H 07/14/21 06:59 Carbon Dioxide 26 mmol/L (22-30) 07/14/21 06:59 Anion Gap 5 mmol/L 07/14/21 06:59 BUN 11 mg/dL (9-20) 07/14/21 06:59 Creatinine 0.60 mg/dL (0.66-1.25) L 07/14/21 06:59 Est GFR (CKD-EPI)AfAm >90 (>60 ml/min/1.73 sqM) 07/14/21 06:59 Est GFR (CKD-EPI)NonAf >90 (>60 ml/min/1.73 sqM) 07/14/21 06:59 Glucose 98 mg/dL (74-99) 07/14/21 06:59 Calcium 8.8 mg/dL (8.4-10.2) 07/14/21 06:59 Total Bilirubin <0.1 mg/dL (0.2-1.3) L 07/14/21 06:59 AST 182 U/L (17-59) H 07/14/21 06:59 ALT 178 U/L (4-49) H 07/14/21 06:59 Alkaline Phosphatase 38 U/L (38-126) 07/14/21 06:59 Total Protein 6.0 g/dL (6.3-8.2) L 07/14/21 06:59 Albumin 2.8 g/dL (3.5-5.0) L 07/14/21 06:59 TSH 1.680 mIU/L (0.465-4.680) 07/14/21 06:59 07/14/21 10:17 IDENTIFYING DATA: This patient is a 35-year-old male with history of polysubstance abuse who is currently homeless HISTORY OF PRESENT ILLNESS: The patient presented to the hospital initially as he was found unresponsive according to ER report. Patient was fine behind a old restaurant and was also carrying drug paraphernalia. Patient has a history of several psychiatric hospitalizations and polysubstance abuse. Recent computed tomography scan of his brain was negative. Patient's UDS is positive for methamphetamine, amphetamines, cocaine, THC. Patient's AST/ALT were elevated. Patient's blood alcohol level was 489 on admission. Patient has a history of going through severe withdrawals from alcohol including delirium tremens. Patient does follow-up at [facility]. He was seen initially by junior technical writer for psych consult on 07/09. He was tremulous and states that he is feeling depressed at this time. He claims that he is feeling suicidal. He claims that he is going through withdrawals at that time and is scared. He states that he wants to go to rehab at [place] however is not able to say when he has an intake today. He claims that he is hearing voices telling him to hurt himself. He was fairly guarded/evasive about the events that occurred prior to him coming to the hospital. He states that he drank a 2 pints of whiskey and went behind a store to call his tactical debriefer officer. He states that he is having anxiety at this time. He claims that he has not been taking his medications at home. Patient was seen once again by junior technical writer today for psychiatric evaluation. Patient was transferred to the mental health unit last night after going through alcohol withdrawals. Patient appears to be fairly disheveled has long hair and a mustache. He claims that he has been using many different drugs however was minimizing his drug use. He states that today he is feeling anxious and claims that he is still having auditory hallucinations. He claims that he does not remember when he left caught his last Haldol injection. He was asking about getting switched onto Xanax today. He claims that his sleep has been improving. He claims that before coming in the hospital he drank heavily approximately 2 pints of whiskey. At this time patient denies any homical ideations, intent or plan. Patient denies any visual hallucinations and denies any paranoia or delusions. Patients admits to using drugs recreationally including methamphetamine, cocaine, marijuana and alcohol as noted above. She had admitted that he stopped taking his psychiatric medications 1 he was discharged from the hospital last. PAST PSYCHIATRIC HISTORY: Patient has a a history of polysubstance abuse and schizoaffective disorder. Patient has been on several different medications in the past including paliperidone and Seroquel along with Zoloft. Patient has had several different psychiatric hospitalizations and also has been court ordered in the past and is currently on a deferral. Patient at this time is currently following up at [facility] for his monthly Haldol injections. Patient denies any history of suicide attempts in the past. PAST MEDICAL HISTORY: Hepatitis C. ALLERGIES: as per EMR. CHEMICAL DEPENDENCY HISTORY: as per HPI. FAMILY PSYCHIATRIC/SUBSTANCE USE HISTORY: Unable to obtain SOCIAL HISTORY: Unable to obtain. Patient is homeless however. MENTAL STATUS EXAM: General Appearance: Patient appears to be discheveled in appearance, older than stated age is alert, directable. Patient appears to have poor hygiene and grooming. Long hair, mustache. Behavior: Patient is seated without any agitated behavior. Attempts to cooperate. Constricted. Speech: Patient's speech is fluent and nonpressured. Monotone Mood/Affect: Patient reports their mood is anxious, affect is congruent and constricted. Suicidality/Homicidality: Patient denies having any homicidal ideation intent or plan. Denies any suicidal ideations intent or plan Perceptions: Patient denies any visual hallucinations and admits to auditory hallucinations. Though content/process: Not endorsing any delusions. Minimizing his drug use. Poor insight. Memory and concentration: AOX3, grossly intact for the purposes of this session. Can spell "WORLD" backwards Judgment and insight: Chronically poor STRENGTHS/WEAKNESSES: strength is that patient is resilient. Weakness is that patient has poor judgment and is impulsive INTELLECT: average IMPRESSIONS: Schizoaffective disorder, depressive type Alcohol use disorder, severe Cocaine use disorder Cannabis use disorders Methamphetamine abuse Nicotine dependence PLAN: -Patient is admitted under involuntary status to MHU for stabilization of psychiatric symptoms and safety. Patient has not signed adult voluntary form and is placed in patient's chart. Patient was previously on a deferral and has not been compliant with his medications and a demand will be filed today. -Medications : Will start patient on Effexor 75 mg daily for mood/anxiety, Wellbutrin 100 mg daily for mood adjunct. Patient is receiving Haldol D1 150 mg injections however unclear as to when his last dose was. Vistaril 50 mg twice a day for anxiety, BuSpar 15 mg twice a day for anxiety. -Ativan and Haldol PRN for agitation/aggression -Patient was counseled on his substance use and states that he would like to go to [facility] upon discharge. -Patient was informed of the risks, benefits and side effects of the medication and patient verbally consented to taking the medications -Internal Medicine consult to perform medical evaluation and physical. -NRT - nicotine patch -SW on board for discharge planning. Encourage patient to participate in groups to work on coping skills. Demand for hearing will be filed today and will await court hearing date.
[2021-07-14] MEDS: buPROPion SR 100 MG TABLET.ER PO SCH (10:52)
[2021-07-14] MEDS: HALOPERIDOL LACTATE 5 MG/ML 1 ML VIAL IM PRN (12:13)
[2021-07-14 12:29] LABS: Chol/HDL Ratio 3.52; Cholesterol 88 mg/dL (0-200); LDL Cholesterol,Calculated 48.4 mg/dL (0.0-131.0)
--- NOTE | 2021-07-14 17:51 | P.MDCNMH ---
History of Present Illness H&P Date: 07/14/21 Chief Complaint: Cellulitis 35-year-old man with a history of polysubstance abuse was admitted to the mental health unit after being found unresponsive with drug paraphernalia. Aleks is being consuls of her medical clearance. Patient's only complaint is a bump on his arm which he complains that it hurts and feels hot. Otherwise, he has no other complaints including fevers, chills, nausea, vomiting, chest pain, palpitations, abdominal pain, diarrhea,patient, numbness/weakness. Patient has a history of hepatitis C, with unclear treatment history. Otherwise, patient is afebrile, hemodynamically stable. Lab work does show elevation of AST/ALT. Review of Systems All Systems reviewed and pertinent positives and negatives noted in HPI, all other symptoms are negative Past Medical History Past Medical History: No Reported History History of Any Multi-Drug Resistant Organisms: None Reported Past Surgical History: Unable to Obtain Past Anesthesia/Blood Transfusion Reactions: No Reported Reaction Past Psychological History: Unable to Obtain Smoking Status: Current every day smoker Past Alcohol Use History: Abuse, Occasional Past Drug Use History: Marijuana, Methamphetamine - Past Family History Father Family Medical History: No Reported History Medications and Allergies Home Medications Medication Instructions Recorded Confirmed Type Benztropine Mesylate [Cogentin] 0.5 mg PO BID 07/08/21 07/13/21 History Haloperidol Decanoate [Haldol D] 150 mg IM Q28D 07/08/21 07/13/21 History QUEtiapine FUMARATE [SEROquel] 300 mg PO HS 07/08/21 07/13/21 History QUEtiapine [SEROquel] 200 mg PO DAILY 07/08/21 07/13/21 History Venlafaxine HCl [Effexor XR] 75 mg PO DAILY 07/08/21 07/13/21 History busPIRone HCL 15 mg PO BID 07/08/21 07/13/21 History hydrOXYzine pamoate [Vistaril] 50 mg PO BID 07/08/21 07/13/21 History Allergies Allergy/AdvReac Type Severity Reaction Status Date / Time No Known Allergies Allergy Unverified 07/08/21 18:05 Physical Exam Osteopathic Statement: *. No significant issues noted on an osteopathic st ructural exam other than those noted in the History and Physical/Consult. Vitals: Vital Signs Temp Pulse Pulse Resp BP Pulse Ox 07/14/21 08:00 97.5 F L 94 16 132/82 96 07/14/21 03:14 122 H 14 122/83 07/13/21 18:07 97.7 F 101 H 18 134/82 99 Gen: awake, alert HEENT: normocephalic, atraumatic, good hearing acuity, moist mucous membranes Resp: good air exchange, breathing comfortably with no accessory muscle use CVS: good distal perfusion x 4, GI: soft, NTTP, ND : no SPT, no CVAT, vallecillo catheter not present MSK: no pitting edema, no clubbing Neuro: Moving all extremities, cranial nerves II through XII are intact Psych: cooperative, euthymic mood Cranial Nerve Examination - Cranial Nerves Cranial Nerve II- Optic: Intact Cranial Nerve III- Oculomotor: Intact Cranial Nerve IV- Trochlear: Intact Cranial Nerve V- Trigeminal: Intact Cranial Nerve - Abducens: Intact Cranial Nerve VII- Facial: Intact Cranial Nerve VIII- Auditory: Intact Cranial Nerve IX- Glossopharyngeal: Intact Cranial Nerve X- Vagus: Intact Cranial Nerve XI- Accessory: Intact Cranial Nerve XII- Hypoglossal: Intact Results CBC & Chem 7: 07/14/21 06:59 07/14/21 06:59 Labs: Abnormal Lab Results - Last 24 Hours (Table) 07/14/21 07/14/21 Range/Units 06:59 06:59 RBC 4.09 L (4.30-5.90) m/uL Hgb 12.3 L (13.0-17.5) gm/dL Hct 36.7 L (39.0-53.0) % RDW 15.7 H (11.5-15.5) % Plt Count 145 L (150-450) k/uL Chloride 110 H (98-107) mmol/L Creatinine 0.60 L (0.66-1.25) mg/dL Total Bilirubin <0.1 L (0.2-1.3) mg/dL AST 182 H (17-59) U/L ALT 178 H (4-49) U/L Total Protein 6.0 L (6.3-8.2) g/dL Albumin 2.8 L (3.5-5.0) g/dL HDL Cholesterol 25.0 L (40.0-60.0) mg/dL Assessment and Plan Assessment: Cellulitis -Start cephalexin and monitor for improvement -Tylenol when necessary for pain Hepatitis C -Will require outpatient follow-up with dog daycare provider Polysubstance abuse -Ongoing therapy for primary team For this consult, a member of [facility] is available 12/06 via [email or web address]. Please contact us with any questions or concerns.
[2021-07-14] MEDS: CEPHALEXIN 250 MG CAP PO SCH (21:01)
[2021-07-15] MEDS: LORazepam 1 MG TAB PO PRN ×3 (04:31→18:36)
[2021-07-15] MEDS: haloperidoL 5 MG TAB PO PRN ×3 (04:31→18:36)
[2021-07-15] MEDS: buPROPion SR 100 MG TABLET.ER PO SCH (09:12)
[2021-07-15] MEDS: busPIRone HCl 5 MG TAB PO SCH ×2 (09:12→20:13)
[2021-07-15] MEDS: hydrOXYzine pamoate 25 MG CAP PO SCH ×2 (09:12→20:12)
[2021-07-15] MEDS: VENLAFAXINE HCL ER 75 MG CAP PO SCH (09:13)
[2021-07-15] MEDS: NICOTINE 14MG/24HR PATCH TRANSDERM SCH (09:13)
[2021-07-15] MEDS: CEPHALEXIN 250 MG CAP PO SCH ×3 (09:13→20:12)
--- NOTE | 2021-07-15 09:18 | P.PN ---
Progress Note - Text Progress Note Date: 07/15/21 Interval History: Patient was seen lying in his bed this morning and was directable and agreeable to speak with customs entry writer in the office. Patient appears to be disheveled in appearance however did state that he showered yesterday. He claims that he plans on showering today. He continues to be concrete and constricted in his affect. He states that he is doing better today with his mood and anxiety. He claims that he only slept approximately 4 hours last night and was agreeable to start Seroquel once again at nighttime. He claims that she did go to 1 group yesterday. He remains focused on going to [facility] in [place] upon discharge. He states that the voices have calmed down significantly and are now "whispers". At this time patient denies any suicidal or homical ideations, intent or plan. Patient denies any visual hallucinations and denies any paranoia or delusions. Patient denies any side effects from the medications and has been compliant with meds. Mental Status Exam: General Appearance: Patient appears to be discheveled in appearance, older than stated age is alert, directable. Patient appears to have poor hygiene and grooming. Long hair, mustache. Behavior: Patient is seated without any agitated behavior. Attempts to cooperate. Constricted. Speech: Patient's speech is fluent and nonpressured. Monotone Mood/Affect: Patient reports their mood is improving mildly, affect is congruent and constricted. Suicidality/Homicidality: Patient denies having any homicidal ideation intent or plan. Denies any suicidal ideations intent or plan Perceptions: Patient denies any visual hallucinations and admits to auditory hallucinations. Though content/process: Not endorsing any delusions. [place]. Poor insight. Memory and concentration: AOX3, grossly intact for the purposes of this session Judgment and insight: Chronically poor Assessment Schizoaffective disorder, depressive type Alcohol use disorder, severe Cocaine use disorder Cannabis use disorders Methamphetamine abuse Nicotine dependence Plan: -Patient continues to meet criteria for inpatient psychiatric admission for symptom stabilization and safety. Patient has not signed adult voluntary form and was placed in patient's chart. -Medications: Continue with Effexor 75 mg daily for mood/anxiety, Wellbutrin 100 mg daily for mood adjunct, Haldol D1 150 mg IM, q3wks next dose due on 07/26/21. Vistaril 50 mg twice a day for anxiety, BuSpar 15 mg twice a day for anxiety. Seroquel was added 100 mg daily at bedtime for psychosis/mood stabilization/insomnia. -When necessary Ativan and Haldol for agitation/aggression. -NRT - nicotine patch -SW on board for discharge planning. Encouraged the patient to participate in milieu. Currently awaiting demand date. Patient is still interested in going to [facility] upon discharge.
[2021-07-15] MEDS: HALOPERIDOL LACTATE 5 MG/ML 1 ML VIAL IM PRN (12:41)
[2021-07-15] MEDS ORDERED: QUEtiapine 100 MG TAB PO SCH (21:00)
[2021-07-16] MEDS: busPIRone HCl 5 MG TAB PO SCH (07:49)
[2021-07-16] MEDS: NICOTINE 14MG/24HR PATCH TRANSDERM SCH (07:49)
[2021-07-16] MEDS: CEPHALEXIN 250 MG CAP PO SCH ×3 (07:50→21:04)
[2021-07-16] MEDS: hydrOXYzine pamoate 25 MG CAP PO SCH ×2 (07:50→21:04)
[2021-07-16] MEDS: buPROPion SR 100 MG TABLET.ER PO SCH (07:50)
[2021-07-16] MEDS: VENLAFAXINE HCL ER 75 MG CAP PO SCH (07:50)
[2021-07-16] MEDS: LORazepam 1 MG TAB PO PRN (08:52)
[2021-07-16] MEDS: haloperidoL 5 MG TAB PO PRN (08:56)
[2021-07-16] MEDS ORDERED: chlorproMAZINE 25 MG/ML 2 ML AMP IM ONE (11:50)
[2021-07-16] MEDS ORDERED: cloNIDine 0.2 MG/24HR PATCH TRANSDERM SCH (12:00)
[2021-07-16] MEDS: OLANZapine 5 MG TAB PO SCH ×3 (12:06→21:04)
--- NOTE | 2021-07-16 16:02 | PN ---
PROGRESS NOTE DATE OF SERVICE: 07/16/2021 CHIEF COMPLAINT: The patient was brought to the ED after being found behind a restaurant having passed out and carrying drug paraphernalia. Urine drug screen was positive for multiple street drugs and his alcohol blood level was 489. INTERVAL HISTORY: The patient at best has been doing fair. He had a quiet day yesterday. He does not show much inclination towards self-care. He comes out on the unit. He seems to wander about, though at times he seems somewhat aimless in his wandering. He will interact some with staff. Often he is coming to staff asking for medications. He will interact with others, though generally seems to mostly keep to himself. He did not attend groups yesterday. He slept fairly well. Today he has been up. He has been out on the unit. Again he has come to staff a few different times asking for medications for anxiety. He attended the 10:30 discharge planning group. It is noted that descriptors of his function in the group included "withdrawn, disheveled, pressured, disorganized and low energy." When I talked to the patient today, again he mostly was focused on his medications. He did state that he anticipated going to [facility], which is his goal. He did describe having high anxiety and stated that Haldol he is already taking has not been helpful. He requested IM Thorazine, which he says he has been on before and found it to be helpful. He did not report problems with Haldol Decanoate. He is due for 150 mg IM on July 26. He acknowledges that he has significant substance use issues. He appears to tolerate psychotropic medications. When I discussed individual medications, he did not feel that BuSpar has been very helpful to him. He was very focused on getting medication for anxiety. It is noted that CIWA scores yesterday and today have been zero. MENTAL STATUS EXAM: Patient was quite restless. Eye contact was fair. He answered questions with brief responses. His thoughts were clear. He did not say a lot. At times he was vague in some of the responses he gave. In general his thoughts were organized and coherent. His affect was anxious, his mood reserved. He seemed moderately distressed. He continues to make some indications of having auditory hallucinations. He voiced no thoughts of harm. He did not make an effort to answer formal cognitive questions though was oriented to his circumstances and surroundings. ASSESSMENT: I will continue the current diagnosis and treatment plan. We will continue to make efforts to engage the patient in individual and group therapeutic activities. I reviewed his medications. I indicated that we will stop BuSpar, given that he is on a complicated set of psychotropic medications, and BuSpar may add to some of his physical symptoms of restlessness. I will start the patient on Zyprexa 5 mg 3 times a day. The aim of Zyprexa is to help reduce physiologic stress response relating to acute substance withdrawal. It is noted that the patient is now 7 days in the hospital, so he is beyond the period of detox risk. CIWA scores are zero. I will discontinue Ativan. The patient will continue Wellbutrin 100 mg a day and Effexor 75 mg a day. The patient's vital signs have been stable other than a mildly elevated pulse, with his last vital signs this morning at 9:00 including BP 120/77, pulse 101 and regular, respirations 16. I will start the patient on a Catapres patch 0.2 mg. The indication is to help ameliorate acute withdrawal symptoms. We will need to watch BP, as his blood pressure has not been in the high or high normal range, though continues to be in a moderate range. If his pressure drops down much, I would look to discontinue the Catapres. I will start the patient on trazodone 100 mg p.r.n. for sleep. I had an extensive discussion with the patient regarding withdrawal issues. I discussed the indication of his medications, potential side effects and concerns relating to metabolics and movement disorder issues regarding his antipsychotic medications. We will focus on stabilization and discharge planning. MMMONIQUEL / IJN: [id number] /
[2021-07-16] MEDS: traZODone HCL 100 MG TAB PO PRN (21:04)
[2021-07-17] MEDS: VENLAFAXINE HCL ER 75 MG CAP PO SCH (08:01)
[2021-07-17] MEDS: OLANZapine 5 MG TAB PO SCH ×3 (08:01→21:22)
[2021-07-17] MEDS: buPROPion SR 100 MG TABLET.ER PO SCH (08:01)
[2021-07-17] MEDS: hydrOXYzine pamoate 25 MG CAP PO SCH ×2 (08:01→21:20)
[2021-07-17] MEDS: NICOTINE 14MG/24HR PATCH TRANSDERM SCH (08:02)
[2021-07-17] MEDS: CEPHALEXIN 250 MG CAP PO SCH ×3 (08:02→22:21)
[2021-07-17] MEDS: haloperidoL 5 MG TAB PO PRN (13:31)
--- NOTE | 2021-07-17 14:42 | PN ---
PROGRESS NOTE DATE OF SERVICE: 07/17/2021 CHIEF COMPLAINT: The patient was brought to the ED after being found behind a restaurant having passed out and carrying drug paraphernalia. Urine drug screen was positive for multiple street drugs and his alcohol blood level was 489. INTERVAL HISTORY: The patient had a fair day yesterday. He comes out on the unit some. He does not interact too much with others. He may approach staff asking for medications for things like anxiety. He seemed to be accepting of the treatment plan, including current medications. He attended one group yesterday. His CIWA scores have been zero, though he did score a 13 on one assessment yesterday. He slept fairly well last night. Today he has been doing about the same. Mostly he has been in his room. His CIWA scores have been zero. He overall seems to be feeling somewhat better with less complaint of anxiety. He did not voice any concerns today. He seems to tolerate his psychotropic medications fairly well. He received a one-time dose of Thorazine 100 mg IM for acute anxiety that did seem to help him settle down. He has not asked for more of that medication today. He appears to tolerate his psychotropic medications. MENTAL STATUS: Patient gave fair eye contact at best. Psychomotor activity was slowed. Speech was monotone. It is noted that he continues to show a fairly unkempt appearance in his self-care. His thoughts were coherent. He mostly answered with one- or two-word responses. His affect was blunted, though he did seem a little more responsive in the interview. His mood was reserved. He did not appear to be significantly distressed. There was no immediate evidence for thought disorder. He voiced no thoughts of harm. He was oriented to his circumstances and surroundings. ASSESSMENT: I will continue the current diagnosis and treatment plan. I will continue psychotropic medications the same. We continue to work on managing withdrawal issues. It is noteworthy that the patient has been started on a Catapres patch, in part to help augment treatment for withdrawal. His vital signs this morning at 0930 were BP 100/54, pulse 64 and regular, respirations 16. This afternoon at 1352, BP 101/56, pulse 111 and regular, respirations 16. We will continue to monitor blood pressure issues relating to use of Catapres. I reviewed medication issues with the patient. I did not go into detail, as the patient did not seem to be too inclined in engaging in that conversation. We will focus on stabilization and discharge planning. MMMONIQUEL / IJN: [id number] /
[2021-07-17] MEDS: traZODone HCL 100 MG TAB PO PRN (21:20)
[2021-07-18] MEDS: NICOTINE 14MG/24HR PATCH TRANSDERM SCH (07:46)
[2021-07-18] MEDS: CEPHALEXIN 250 MG CAP PO SCH ×3 (07:46→21:13)
[2021-07-18] MEDS: buPROPion SR 100 MG TABLET.ER PO SCH (07:46)
[2021-07-18] MEDS: VENLAFAXINE HCL ER 75 MG CAP PO SCH (07:47)
[2021-07-18] MEDS: hydrOXYzine pamoate 25 MG CAP PO SCH ×2 (07:47→21:12)
[2021-07-18] MEDS: OLANZapine 5 MG TAB PO SCH ×3 (07:47→21:12)
[2021-07-18] MEDS ORDERED: chlorproMAZINE 25 MG/ML 2 ML AMP IM STA (12:33)
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
[2021-07-18] MEDS ORDERED: chlorproMAZINE 25 MG/ML 2 ML AMP IM ONE (13:13)
--- NOTE | 2021-07-19 11:33 | P.PN ---
Progress Note - Text Progress Note Date: 07/19/21 Interval History: Patient was seen lying in his bed this morning however patient was sleeping. He was awoken by account underwriter however claims that he did not want to talk today and claims that he is doing "okay". He states that he is feeling somewhat tired and continues to appear to have a disheveled appearance. Patient denies any auditory or visual hallucinations and denies any paranoia or delusions. He is denying any suicidal or homicidal ideations intent or plan. Patient denies any side effects from the medications and has been compliant with meds. Mental Status Exam: General Appearance: Patient appears to be discheveled in appearance, older than stated age is lethargic today. Patient appears to have poor hygiene and grooming. Long hair, mustache. Behavior: Patient is seated without any agitated behavior. Constricted. Speech: Patient's speech is fluent and nonpressured. Monotone Mood/Affect: Unable to assess Suicidality/Homicidality: Patient denies having any homicidal ideation intent or plan. Denies any suicidal ideations intent or plan Perceptions: Patient denies any visual hallucinations and admits to auditory hallucinations. Though content/process: Not endorsing any delusions. [place]. Memory and concentration: AOX3, grossly intact for the purposes of this session Judgment and insight: Chronically poor Assessment Schizoaffective disorder, depressive type Alcohol use disorder, severe Cocaine use disorder Cannabis use disorders Methamphetamine abuse Nicotine dependence Plan: -Patient continues to meet criteria for inpatient psychiatric admission for symptom stabilization and safety. Patient has not signed adult voluntary form and was placed in patient's chart. -Medications: Continue with Effexor 75 mg daily for mood/anxiety, Wellbutrin 100 mg daily for mood adjunct, Haldol D 150 mg IM, q3wks next dose due on 07/26/21. Vistaril 50 mg twice a day for anxiety, BuSpar 15 mg twice a day for anxiety. Decreased Zyprexa to 5 mg daily at bedtime for psychosis/mood stabilization. -When necessary Ativan and Haldol for agitation/aggression. -NRT - nicotine patch -SW on board for discharge planning. Encouraged the patient to participate in milieu. Currently awaiting demand date. Patient has a warrant out for his arrest and will be discharged directly to police custody for violation of order. Likely discharge tomorrow.
[2021-07-19] MEDS: hydrOXYzine pamoate 25 MG CAP PO SCH ×2 (12:14→20:03)
[2021-07-19] MEDS: NICOTINE 14MG/24HR PATCH TRANSDERM SCH (12:14)
[2021-07-19] MEDS: VENLAFAXINE HCL ER 75 MG CAP PO SCH (12:14)
[2021-07-19] MEDS: CEPHALEXIN 250 MG CAP PO SCH ×3 (12:16→21:03)
[2021-07-19] MEDS: buPROPion SR 100 MG TABLET.ER PO SCH (12:16)
[2021-07-19 12:21] VITALS: RESP 16
[2021-07-19] MEDS: OLANZapine 5 MG TAB PO SCH (12:49)
[2021-07-19] MEDS: haloperidoL 5 MG TAB PO PRN (14:04)
[2021-07-19] MEDS ORDERED: OLANZapine 5 MG TAB PO SCH (21:00)
[2021-07-20 04:09] VITALS: BP 116/73; PULSE 78; TEMP 97.4
[2021-07-20] MEDS: buPROPion SR 100 MG TABLET.ER PO SCH (08:08)
[2021-07-20] MEDS: CEPHALEXIN 250 MG CAP PO SCH (08:08)
[2021-07-20] MEDS: hydrOXYzine pamoate 25 MG CAP PO SCH (08:08)
[2021-07-20] MEDS: NICOTINE 14MG/24HR PATCH TRANSDERM SCH (08:08)
[2021-07-20] MEDS: VENLAFAXINE HCL ER 75 MG CAP PO SCH (08:08)
[2021-07-20] MEDS: haloperidoL 5 MG TAB PO PRN (08:09)
--- NOTE | 2021-07-20 10:17 | P.DS ---
Providers Date of admission: 07/13/21 17:43 Expected date of discharge: 07/20/21 Attending physician: Gamal Ruvalcaba MD Consults: 07/13/21 18:07 Consult Physician Routine Consulting Provider: [facility] Consult Reason/Comments: H&P and medical and abscess on right AC Do you want consulting provider notified?: Yes Primary care physician: Stated None - Discharge Diagnosis(es) (1) Schizoaffective disorder, depressive type Current Visit: Yes Status: Acute Priority: High (2) Alcohol use disorder, severe, dependence Current Visit: Yes Status: Acute Priority: High (3) Cocaine use disorder Current Visit: Yes Status: Acute Priority: High (4) Cannabis use disorder, mild, abuse Current Visit: Yes Status: Acute Priority: Medium (5) Methamphetamine abuse Current Visit: Yes Status: Acute Priority: High (6) Nicotine dependence Current Visit: Yes Status: Acute Priority: Low Hospital Course: Admission HPI: Admission note was completed by verse writer "This patient is a 35-year-old male with history of polysubstance abuse who is currently homeless. The patient presented to the hospital initially as he was found unresponsive according to ER report. Patient was fine behind a old restaurant and was also carrying drug paraphernalia. Patient has a history of several psychiatric hospitalizations and polysubstance abuse. Recent computed tomography scan of his brain was nega tive. Patient's UDS is positive for methamphetamine, amphetamines, cocaine, THC. Patient's AST/ALT were elevated. Patient's blood alcohol level was 489 on admission. Patient has a history of going through severe withdrawals from alcohol including delirium tremens. Patient does follow-up at [facility]. He was seen initially by verse writer for psych consult on 07/09. He was tremulous and states that he is feeling depressed at this time. He claims that he is feeling suicidal. He claims that he is going through withdrawals at that time and is scared. He states that he wants to go to rehab at [facility] however is not able to say when he has an intake today. He claims that he is hearing voices telling him to hurt himself. He was fairly guarded/evasive about the events that occurred prior to him coming to the hospital. He states that he drank a 2 pints of whiskey and went behind a store to call his strategic debriefing officer. He states that he is having anxiety at this time. He claims that he has not been taking his medications at home. Patient was seen once again by verse writer today for psychiatric evaluation. Patient was transferred to the mental health unit last night after going through alcohol withdrawals. Patient appears to be fairly disheveled has long hair and a mustache. He claims that he has been using many different drugs however was minimizing his drug use. He states that today he is feeling anxious and claims that he is still having auditory hallucinations. He claims that he does not remember when he left caught his last Haldol injection. He was asking about getting switched onto Xanax today. He claims that his sleep has been improving. He claims that before coming in the hospital he drank heavily approximately 2 pints of whiskey. At this time patient denies any kat ical ideations, intent or plan. Patient denies any visual hallucinations and denies any paranoia or delusions. Patients admits to using drugs recreationally including methamphetamine, cocaine, marijuana and alcohol as noted above. She had admitted that he stopped taking his psychiatric medications 1 he was discharged from the hospital last." Hospital course: Upon admission to the unit patient was initially experiencing auditory hallucinations and was depressed. Patient was however on a deferral previously and a demand for hearing was filed with the courts and patient will be doing demand hearing from correction as he will be discharged to correction from the unit. Patient is already on an active substance use treatment order until 07/27/21. Patient mainly kept to himself initially however with treatment he got along well with other patients on the unit and followed unit protocol. Patient was known to be drug/med seeking with verse writer during the hospitalization and also at the medication window. Patient was compliant with the medications and denied any side effects throughout hospital course. Patient was started on BuSpar 15 mg twice a day for anxiety, Zyprexa 5 mg twice a day for psychosis/mood stabilization, Effexor 75 mg daily for mood/anxiety, Wellbutrin 100 mg daily for mood adjunct, Vistaril 50 mg twice a day for anxiety. Patient has been receiving Haldol Decanoate 150 mg IM every 3 weeks and his last dose was given on 07/05 and next dose will be given on 07/26. Patient spoke of his stressors and engaged in therapy both group and individual. Patient was also seen by medical team for history and physical exam. Throughout the course of the hospitalization patient gradually improved with regards to mood, anxiety, psychosis/hallucinations, sleep and return back to his baseline level of functioning. Patient has chronically poor insight and judgment and drug seeking behaviors. On the day of discharge patient denied any suicidal or homicidal ideations intent or plan denied any auditory or visual hallucinations. Patient endorsed wanting to live for his health and family. The patient denied any access to guns or weapons. Patient denied any paranoia and did not endorse any delusions. Patient does have a significant history of substance abuse and was counseled on abstaining from all substances including alcohol and marijuana. Due to patient violating his substance use court order, patient will be discharged into the custody of police/law enforcement and will likely be going to correction upon discharge. Patient was also counseled on the medications and need for regular compliance and was encouraged to follow-up with their outpatient appointment for mental health and also for primary care. Mental status exam: General Appearance: Patient appears to have poor hygiene/ grooming, older than stated age is alert, pleasant, and cooperative. Patient is in no acute distress and has improved hygiene and grooming Behavior: Patient is calmly seated without any agitated behavior. Speech: Patient's speech is fluent and nonpressured. Mood/Affect: Patient reports their mood is "better", affect is congruent Suicidality/Homicidality: Patient denies having any suicidal or homicidal ideation intent or plan. Perceptions: Patient denies any auditory or visual hallucinations. Though content/process: There is no evidence of any delusional thought content and thought process is linear and goal-directed. Memory and concentration: AOX3, grossly intact for the purposes of this session. Can spell "WORLD" backwards correctly. Judgment and insight: chronically poor, however has improved with guarded prognosis Impression: Schizoaffective disorder, depressive type Alcohol use disorder, severe Cocaine use disorder Cannabis use disorder Methamphetamine abuse Nicotine dependence Plan: -Continue with discharge today as patient has improved and stabilized psychiatrically and is not currently an imminent threat to himself and/or others. Patient will remain at chronically elevated risk for harm to self and/or others due to his impulsivity, chronically poor insight and judgment and polysubstance abuse. -Continue medications: BuSpar 15 mg twice a day for anxiety, Zyprexa 5 mg twice a day for psychosis/mood stabilization, Effexor 75 mg daily for mood/anxiety, Wellbutrin 100 mg daily for mood adjunct, Vistaril 50 mg twice a day for anxiety. Patient has been receiving Haldol Decanoate 150 mg IM every 3 weeks and his last dose was given on 07/05 and next dose will be given on 07/26. -Patient was counseled on the need for medication compliance and appropriate follow-up at mental health and also primary care for medical issues. Patient verbalized understanding and agreed. -Social work to arrange for disposition today and will contact law enforcement/police as patient will be discharged to correction for violation of his court order. Social work also to arrange for patients follow up appointments with [facility] for psychiatric care along with follow up with primary care provider. -Patient counseled on abstaining from recreational drugs and marijuana and alcohol. Was informed/educated on the adverse effects on their physical and mental health. Patient verbally agreed and understood. -Patient was instructed to return to the hospital or seek immediate medical care if their psychiatric or medical symptoms do worsen or reoccur. Allergies Allergy/AdvReac Type Severity Reaction Status Date / Time No Known Allergies Allergy Unverified 07/08/21 18:05 Laboratory Results WBC 4.5 k/uL (3.8-10.6) 07/14/21 06:59 RBC 4.09 m/uL (4.30-5.90) L 07/14/21 06:59 Hgb 12.3 gm/dL (13.0-17.5) L 07/14/21 06:59 Hct 36.7 % (39.0-53.0) L 07/14/21 06:59 MCV 89.8 fL (80.0-100.0) 07/14/21 06:59 MCH 30.0 pg (25.0-35.0) 07/14/21 06:59 MCHC 33.4 g/dL (31.0-37.0) 07/14/21 06:59 RDW 15.7 % (11.5-15.5) H 07/14/21 06:59 Plt Count 145 k/uL (150-450) L 07/14/21 06:59 MPV 8.6 07/14/21 06:59 Neutrophils % 56 % 07/14/21 06:59 Lymphocytes % 27 % 07/14/21 06:59 Monocytes % 7 % 07/14/21 06:59 Eosinophils % 5 % 07/14/21 06:59 Basophils % 1 % 07/14/21 06:59 Neutrophils # 2.5 k/uL (1.3-7.7) 07/14/21 06:59 Lymphocytes # 1.2 k/uL (1.0-4.8) 07/14/21 06:59 Monocytes # 0.3 k/uL (0-1.0) 07/14/21 06:59 Eosinophils # 0.2 k/uL (0-0.7) 07/14/21 06:59 Basophils # 0.0 k/uL (0-0.2) 07/14/21 06:59 Sodium 141 mmol/L (137-145) 07/14/21 06:59 Potassium 3.9 mmol/L (3.5-5.1) 07/14/21 06:59 Chloride 110 mmol/L (98-107) H 07/14/21 06:59 Carbon Dioxide 26 mmol/L (22-30) 07/14/21 06:59 Anion Gap 5 mmol/L 07/14/21 06:59 BUN 11 mg/dL (9-20) 07/14/21 06:59 Creatinine 0.60 mg/dL (0.66-1.25) L 07/14/21 06:59 Est GFR (CKD-EPI)AfAm >90 (>60 ml/min/1.73 sqM) 07/14/21 06:59 Est GFR (CKD-EPI)NonAf >90 (>60 ml/min/1.73 sqM) 07/14/21 06:59 Glucose 98 mg/dL (74-99) 07/14/21 06:[address] Glu mg/dL 77 07/14/21 06:59 Hemoglobin A1c 4.3 % (4.0-6.0) 07/14/21 06:59 Calcium 8.8 mg/dL (8.4-10.2) 07/14/21 06:59 Total Bilirubin <0.1 mg/dL (0.2-1.3) L 07/14/21 06:59 AST 182 U/L (17-59) H 07/14/21 06:59 ALT 178 U/L (4-49) H 07/14/21 06:59 Alkaline Phosphatase 38 U/L (38-126) 07/14/21 06:59 Total Protein 6.0 g/dL (6.3-8.2) L 07/14/21 06:59 Albumin 2.8 g/dL (3.5-5.0) L 07/14/21 06:59 Triglycerides 73.0 mg/dL (0.0-149.0) 07/14/21 06:59 Cholesterol 88 mg/dL (0-200) 07/14/21 06:59 LDL Cholesterol, Calc 48.4 mg/dL (0.0-131.0) 07/14/21 06:59 VLDL Cholesterol, Calc 14.60 mg/dL (5.00-40.00) 07/14/21 06:59 HDL Cholesterol 25.0 mg/dL (40.0-60.0) L 07/14/21 06:59 Cholesterol/HDL Ratio 3.52 07/14/21 06:59 TSH 1.680 mIU/L (0.465-4.680) 07/14/21 06:59 Vital Signs Temp 97.4 F L 07/20/21 04:07 Pulse 78 07/20/21 04:07 Resp 16 07/19/21 12:20 BP 116/73 07/20/21 04:07 Pulse Ox 98 07/20/21 04:07 Patient Condition at Discharge: Stable Plan - Discharge Summary Discharge Rx Participant: No New Discharge Prescriptions: New Nicotine 14Mg/24Hr Patch [Habitrol] 1 patch TRANSDERM DAILY #14 patch Cephalexin [Keflex] 250 mg PO TID 4 Days cap buPROPion SR [Wellbutrin SR] 100 mg PO DAILY 30 Days tablet.er OLANZapine [ZyPREXA] 5 mg PO HS 30 Days tab traZODone HCL [Desyrel] 100 mg PO HS PRN 14 Days tab PRN Reason: Insomnia Continue Venlafaxine HCl [Effexor XR] 75 mg PO DAILY 30 Days cap busPIRone HCL 15 mg PO BID 30 Days tab hydrOXYzine pamoate [Vistaril] 50 mg PO BID 30 Days cap Changed Haloperidol Decanoate [Haldol D] 150 mg IM Q21D #1 each Discontinued QUEtiapine [SEROquel] 200 mg PO DAILY QUEtiapine FUMARATE [SEROquel] 300 mg PO HS Benztropine Mesylate [Cogentin] 0.5 mg PO BID Discharge Medication List Cephalexin [Keflex] 250 mg PO TID 4 Days cap 07/20/21 [Rx] Haloperidol Decanoate [Haldol D] 150 mg IM Q21D #1 each 07/20/21 [Rx] Nicotine 14Mg/24Hr Patch [Habitrol] 1 patch TRANSDERM DAILY #14 patch 07/20/21 [Rx] OLANZapine [ZyPREXA] 5 mg PO HS 30 Days tab 07/20/21 [Rx] Venlafaxine HCl [Effexor XR] 75 mg PO DAILY 30 Days cap 07/20/21 [Rx] buPROPion SR [Wellbutrin SR] 100 mg PO DAILY 30 Days tablet.er 07/20/21 [Rx] busPIRone HCL 15 mg PO BID 30 Days tab 07/20/21 [Rx] hydrOXYzine pamoate [Vistaril] 50 mg PO BID 30 Days cap 07/20/21 [Rx] traZODone HCL [Desyrel] 100 mg PO HS PRN 14 Days tab 07/20/21 [Rx] Activity/Diet/Wound Care/Special Instructions: Activity and diet as tolerated. Avoid the use of street drugs and alcohol. Take all medications as prescribed. When you are in need of refills on your medications please contact your medical provider and/or outpatient psychiatrist to have this done. Please go to scheduled outpatient appointment for aftercare treatment. If symptoms return or become worse, call the crisis line at and/or go to the nearest emergency room for evaluation. Discharge Disposition: DC/TRANSFER COURT/LAW
[2021-07-26] MEDS ORDERED: HALOPERIDOL DECANOATE 100 MG/ML 1 ML VIAL IM SCH (09:15)
[2021-07-27] MEDS ORDERED: HALOPERIDOL DECANOATE 100 MG/ML 1 ML VIAL IM SCH (12:00)
== END 2021-07-20 12:46 | DRG 885 ==
LOC: MERGE 17:43 → 3MHU 17:43
PROVIDERS: ADMIT Psychiatry & Neurology Psychiatry; ATTEND Psychiatry & Neurology Psychiatry
PROC: HZ2ZZZZ Detoxification Services for Substance Abuse Treatment (ICD-10-PCS; principal; 2021-07-13)
DX: F25.1 Schizoaffective disorder, depressive type (principal); F10.239 Alcohol dependence with withdrawal, unspecified; F12.10 Cannabis abuse, uncomplicated; F14.10 Cocaine abuse, uncomplicated; F15.10 Other stimulant abuse, uncomplicated; F17.210 Nicotine dependence, cigarettes, uncomplicated; F41.9 Anxiety disorder, unspecified; Y90.8 Blood alcohol level of 240 mg/100 ml or more; Z76.5 Malingerer [conscious simulation]; Z59.0 Homelessness; Z79.899 Other long term (current) drug therapy; Z91.14 Patient's other noncompliance with medication regimen
CPT/HCPCS: 80053; 80061; 83036; 84443; 85025

== ENCOUNTER 2021-09-25 09:57 | Emergency (ER) | payer OTHER ==
[2021-09-25 10:09] VITALS: RESP 18; TEMP 98.6
[2021-09-25 11:27] LABS: Amphetamine Screen,Urine Detected (NotDetected); Barbiturate Screen,Urine Not Detected (NotDetected); Benzodiazepines Screen,Urine Detected (NotDetected); Cocaine Screen,Urine Detected (NotDetected); Methadone Screen, Urine Not Detected (NotDetected); Opiate Screen,Urine Not Detected (NotDetected); Oxycodone Screen, Urine Not Detected (NotDetected); Phencyclidine Screen,Urine Not Detected (NotDetected); Tricyclic Antidepressant,Urine Detected (NotDetected); Urn Cannabinoid Scrn Detected (NotDetected)
--- NOTE | 2021-09-25 11:34 | ED ---
General Adult HPI - General Chief complaint: Psychiatric Symptoms Stated complaint: Suicidal Time Seen by Provider: 09/25/21 10:05 Source: patient, RN notes reviewed, old records reviewed Mode of arrival: ambulatory Limitations: no limitations - History of Present Illness Initial comments: This is a 35-year-old male who presents emergency Department and states he is suicidal. Patient states he is homeless and he is just sick of living. Patient denies having made any attempt. Patient denies any drug use or alcohol use. Patient denies any physical complaints today. Patient states he only thing is he is extremely tired because he has a difficult time sleeping because he is homeless. - Related Data Previous Rx's Medication Instructions Recorded Acetaminophen Tab [Tylenol] 650 mg PO Q4HR PRN tab 02/05/21 Haloperidol Decanoate [Haldol D] 150 mg IM ONCE #1 vial 02/05/21 Nicotine 21Mg/24Hr Patch [Habitrol] 1 patch TRANSDERM DAILY 14 Days 02/05/21 patch QUEtiapine [SEROquel] 100 mg PO DAILY 30 Days tab 02/05/21 QUEtiapine [SEROquel] 200 mg PO HS 30 Days tab 02/05/21 Venlafaxine HCl ER [Effexor XR] 75 mg PO DAILY 30 Days cap.er.24h 02/05/21 busPIRone HCl [Buspar] 10 mg PO TID 30 Days tab 02/05/21 hydrOXYzine pamoate [Vistaril] 50 mg PO BID PRN 30 Days cap 02/05/21 Cephalexin [Keflex] 500 mg PO QID 10 Days #40 cap 07/05/21 Sulfamethox-Tmp 800-160Mg [Bactrim 1 tab PO Q12HR #28 tab 07/05/21 DS 800-160 mg] Cephalexin [Keflex] 250 mg PO TID 4 Days cap 07/20/21 Haloperidol Decanoate [Haldol D] 150 mg IM Q21D #1 each 07/20/21 Nicotine 14Mg/24Hr Patch [Habitrol] 1 patch TRANSDERM DAILY #14 patch 07/20/21 OLANZapine [ZyPREXA] 5 mg PO HS 30 Days tab 07/20/21 Venlafaxine HCl [Effexor XR] 75 mg PO DAILY 30 Days cap 07/20/21 buPROPion SR [Wellbutrin SR] 100 mg PO DAILY 30 Days tablet.er 07/20/21 busPIRone HCL 15 mg PO BID 30 Days tab 07/20/21 hydrOXYzine pamoate [Vistaril] 50 mg PO BID 30 Days cap 07/20/21 traZODone HCL [Desyrel] 100 mg PO HS PRN 14 Days tab 07/20/21 Allergies Allergy/AdvReac Type Severity Reaction Status Date / Time No Known Allergies Allergy Verified 09/25/21 10:08 Review of Systems ROS Statement: Those systems with pertinent positive or pertinent negative responses have been documented in the HPI. ROS Other: All systems not noted in ROS Statement are negative. Past Medical History Past Medical History: GERD/Reflux, Hypertension, Liver Disease, No Reported History Additional Past Medical History / Comment(s): Hepatitis C, DDD, back pain, bilateral carpel tunnel syndrome. He reports that he has heart disease that was found when he had kidney problems but he denies having a stress test or cardiac catheterization. History of Any Multi-Drug Resistant Organisms: None Reported MDRO Source:: unknown Past Surgical History: No Surgical Hx Reported, Unable to Obtain Past Anesthesia/Blood Transfusion Reactions: No Reported Reaction, Unable to Obtain Additional Past Anesthesia/Blood Transfusion Reaction / Comment(s): Pt states he has never had surgery. Past Psychological History: Anxiety, Depression, Unable to Obtain Smoking Status: Current every day smoker Past Alcohol Use History: Abuse, Occasional, Rare Past Drug Use History: Heroin, Marijuana, Methamphetamine - Past Family History Father Additional Family Medical History / Comment(s): Father is . Mother Additional Family Medical History / Comment(s): Mother is . General Exam - General Exam Comments Initial Comments: GENERAL: Patient is well-developed and well-nourished. Patient is nontoxic and well- hydrated and is in mild distress. ENT: Neck is soft and supple. No significant lymphadenopathy is noted. Oropharynx is clear. Moist mucous membranes. Neck has full range of motion without eliciting any pain. EYES: The sclera were anicteric and conjunctiva were pink and moist. Extraocular movements were intact and pupils were equal round and reactive to light. Eyelids were unremarkable. PULMONARY: Unlabored respirations. Good breath sounds bilaterally. No audible rales rhonchi or wheezing was noted. CARDIOVASCULAR: There is a regular rate and rhythm without any murmurs gallops or rubs. ABDOMEN: Soft and nontender with normal bowel sounds. SKIN: Skin is clear with no lesions or rashes and otherwise unremarkable. NEUROLOGIC: Patient is alert and oriented x3. Cranial nerves II through XII are grossly intact. Motor and sensory are also intact. Normal speech, volume and content. Symmetrical smile. MUSCULOSKELETAL: Normal extremities with adequate strength and full range of motion. LYMPHATICS: No significant lymphadenopathy is noted PSYCHIATRIC: Patient states he is suicidal Limitations: no limitations Course Vital Signs 09/25/21 10:03 Temperature 98.6 F Pulse Rate 100 Respiratory 18 Rate Blood Pressure 126/85 O2 Sat by Pulse 98 Oximetry Medical Decision Making - Medical Decision Making EPS evaluated the patient and determined after talking with the psychiatrist the patient to be discharged. - Lab Data Lab Results 09/25/21 Range/Units 10:49 Urine Opiates Screen Not Detected (NotDetected) Ur Oxycodone Screen Not Detected (NotDetected) Urine Methadone Screen Not Detected (NotDetected) Ur Propoxyphene Screen Not Detected (NotDetected) Ur Barbiturates Screen Not Detected (NotDetected) U Tricyclic Antidepress Detected H (NotDetected) Ur Phencyclidine Scrn Not Detected (NotDetected) Ur Amphetamines Screen Detected H (NotDetected) U Methamphetamines Scrn Detected H (NotDetected) U Benzodiazepines Scrn Detected H (NotDetected) Urine Cocaine Screen Detected H (NotDetected) U Marijuana (THC) Screen Detected H (NotDetected) Disposition Clinical Impression: Polysubstance abuse Disposition: HOME SELF-CARE Instructions (If sedation given, give patient instructions): Methamphetamine Abuse (ED), Polysubstance Abuse (ED) Additional Instructions: Patient needs to stop doing methamphetamine and cocaine. Is patient prescribed a controlled substance at d/c from ED?: No Referrals: None,Stated [Primary Care Provider] - 1-2 days Time of Disposition: 13:13
[2021-09-25 14:08] VITALS: BP 128/82; PULSE 95
== END 2021-09-25 14:07 | disposition home or self-care (01) ==
LOC: EC 09:57
DX: F19.10 Other psychoactive substance abuse, uncomplicated (principal); F15.10 Other stimulant abuse, uncomplicated; F14.10 Cocaine abuse, uncomplicated; F12.10 Cannabis abuse, uncomplicated; F13.10 Sedative, hypnotic or anxiolytic abuse, uncomplicated; F17.200 Nicotine dependence, unspecified, uncomplicated; I10 Essential (primary) hypertension; Z59.00 Homelessness unspecified
CPT/HCPCS: 80306; 82075; 99284

== ENCOUNTER 2021-09-27 19:53 | Emergency (ER) | payer OTHER ==
[2021-09-27] MEDS ORDERED: SODIUM CHLORIDE 0.9% 1,000 ML IV STA (19:59)
[2021-09-27] MEDS ORDERED: LORazepam 2 MG/ML INJ IV STA (20:00)
[2021-09-27 21:20] LABS: Basophils # (A) 0.1 k/uL (0-0.2); Basophils % (A) 1 %; Eosinophils # (A) 0.1 k/uL (0-0.7); Eosinophils % (A) 1 %; HCT 36.4 % (39.0-53.0); HGB 12.4 gm/dL (13.0-17.5); Lymphocytes # (A) 2.6 k/uL (1.0-4.8); Lymphocytes % (A) 29 %; MCH 29.5 pg (25.0-35.0); MCHC 34.1 g/dL (31.0-37.0); MCV 86.5 fL (80.0-100.0); Mean Platelet Volume 8.3; Monocytes # (A) 0.7 k/uL (0-1.0); Monocytes % (A) 8 %; Neutrophils # (A) 5.4 k/uL (1.3-7.7); Neutrophils % (A) 59 %; Platelet Count 234 k/uL (150-450); RBC 4.21 m/uL (4.30-5.90); RDW 13.5 % (11.5-15.5); WBC 9.1 k/uL (3.8-10.6)
[2021-09-27 21:28] LABS: ALT 141 U/L (4-49); AST 145 U/L (17-59); Acetaminophen <10.0 ug/mL; African American GFR (CKD) >90 (>60 ml/min/1.73 sqM); Albumin 3.7 g/dL (3.5-5.0); Alcohol <10 mg/dL; Alkaline Phosphatase 51 U/L (38-126); Anion Gap 9 mmol/L; Blood Urea Nitrogen 10 mg/dL (9-20); Carbon Dioxide 23 mmol/L (22-30); Chloride 103 mmol/L (98-107); Glucose 95 mg/dL (74-99); Magnesium 1.6 mg/dL (1.6-2.3); Non-African American GFR(CKD) >90 (>60 ml/min/1.73 sqM); Potassium 2.9 mmol/L (3.5-5.1); Salicylate <1.0 mg/dL; Sodium 135 mmol/L (137-145); Total Bilirubin 0.6 mg/dL (0.2-1.3); Total Protein 7.5 g/dL (6.3-8.2)
--- NOTE | 2021-09-27 21:28 | ED ---
General Adult HPI - General Chief complaint: Overdose Stated complaint: Overdose Time Seen by Provider: 09/27/21 19:57 Source: patient, EMS, RN notes reviewed, old records reviewed Mode of arrival: EMS Limitations: no limitations - History of Present Illness Initial comments: 35 -year-old male visiting for evaluation of suspected caffeine overdose. Pat ient states he's taken more than 10 high-dose caffeine pills and has been drinking a lot of Mountain Dew. Patient has had nausea, palpitations. He states she's been out of the sun all day, he states he is homeless and has been asking for money. He denies suicidal or homicidal ideation. - Related Data Home Medications Medication Instructions Recorded Confirmed QUEtiapine FUMARATE [SEROquel] 600 mg PO HS 09/27/21 09/27/21 Venlafaxine HCl [Effexor XR] 75 mg PO BID 09/27/21 09/27/21 buPROPion HCL [Wellbutrin XL] 300 mg PO DAILY 09/27/21 09/27/21 Previous Rx's Medication Instructions Recorded Haloperidol Decanoate [Haldol D] 150 mg IM Q21D #1 each 07/20/21 busPIRone HCL 15 mg PO BID 30 Days tab 07/20/21 Allergies Allergy/AdvReac Type Severity Reaction Status Date / Time No Known Allergies Allergy Verified 09/27/21 21:31 Review of Systems ROS Statement: Those systems with pertinent positive or pertinent negative responses have been documented in the HPI. ROS Other: All systems not noted in ROS Statement are negative. Past Medical History Past Medical History: GERD/Reflux, Hypertension, Liver Disease, No Reported History Additional Past Medical History / Comment(s): Hepatitis C, DDD, back pain, bilateral carpel tunnel syndrome. He reports that he has heart disease that was found when he had kidney problems but he denies having a stress test or cardiac catheterization. History of Any Multi-Drug Resistant Organisms: None Reported MDRO Source:: unknown Past Surgical History: No Surgical Hx Reported, Unable to Obtain Past Anesthesia/Blood Transfusion Reactions: No Reported Reaction, Unable to Obtain Additional Past Anesthesia/Blood Transfusion Reaction / Comment(s): Pt states he has never had surgery. Past Psychological History: Anxiety, Depression, Unable to Obtain Smoking Status: Current every day smoker Past Alcohol Use History: Occasional Past Drug Use History: Heroin, Marijuana, Methamphetamine - Past Family History Father Family Medical History: Coronary Artery Disease (CAD) Additional Family Medical History / Comment(s): Father is . Mother Family Medical History: Rheumatoid Arthritis (RA) Additional Family Medical History / Comment(s): Mother is . General Exam Limitations: no limitations General appearance: alert, anxious Head exam: Present: atraumatic, normocephalic Eye exam: Present: normal appearance, PERRL ENT exam: Present: mucous membranes dry Neck exam: Present: normal inspection. Absent: tenderness Respiratory exam: Absent: normal lung sounds bilaterally, respiratory distress, wheezes Cardiovascular Exam: Present: normal rhythm, tachycardia GI/Abdominal exam: Present: soft. Absent: distended, tenderness, guarding Extremities exam: Present: normal inspection, normal capillary refill. Absent: pedal edema Neurological exam: Present: alert, oriented X3, CN II-XII intact. Absent: motor sensory deficit Psychiatric exam: Present: agitated, anxious Skin exam: Present: warm, dry, intact. Absent: cyanosis, diaphoretic Course Vital Signs 09/27/21 09/27/21 20:02 22:24 Temperature 97.3 F L Pulse Rate 112 H 102 H Respiratory 18 18 Rate Blood Pressure 110/96 146/95 O2 Sat by Pulse 99 97 Oximetry EKG Findings - EKG Comments: EKG Findings:: EKG: Sinus tachycardia, rate of 101, NH interval 124, QRS duration 90, QTC 451, no ST segment elevation. Medical Decision Making - Medical Decision Making 35-year-old male overdose. Patient is positive for both cocaine and methamphetamines. His initial tachycardia improves with benzodiazepines and fluids. Patient is not suicidal or homicidal. He has no psychiatric complaints at this time. After his initial treatment he is eager for discharge. He is given both IV fluids and electrolyte replacement including potassium. Otherwise his workup is stable. Return parameters discussed. - Lab Data Result diagrams: 09/27/21 21:09 09/27/21 21:09 Lab Results 09/27/21 09/27/21 09/27/21 Range/Units 21:09 21: 21: WBC 9.1 (3.8-10.6) k/uL RBC 4.21 L (4.30-5.90) m/uL Hgb 12.4 L (13.0-17.5) gm/dL Hct 36.4 L (39.0-53.0) % MCV 86.5 (80.0-100.0) fL MCH 29.5 (25.0-35.0) pg MCHC 34.1 (31.0-37.0) g/dL RDW 13.5 (11.5-15.5) % Plt Count 234 (150-450) k/uL MPV 8.3 Neutrophils % 59 % Lymphocytes % 29 % Monocytes % 8 % Eosinophils % 1 % Basophils % 1 % Neutrophils # 5.4 (1.3-7.7) k/uL Lymphocytes # 2.6 (1.0-4.8) k/uL Monocytes # 0.7 (0-1.0) k/uL Eosinophils # 0.1 (0-0.7) k/uL Basophils # 0.1 (0-0.2) k/uL PT (9.0-12.0) sec INR (<1.2) Sodium 135 L (137-145) mmol/L Potassium 2.9 L (3.5-5.1) mmol/L Chloride 103 (98-107) mmol/L Carbon Dioxide 23 (22-30) mmol/L Anion Gap 9 mmol/L BUN 10 (9-20) mg/dL Creatinine 0.65 L (0.66-1.25) mg/dL Est GFR (CKD-EPI)AfAm >90 (>60 ml/min/1.73 sqM) Est GFR (CKD-EPI)NonAf >90 (>60 ml/min/1.73 sqM) Glucose 95 (74-99) mg/dL Plasma Lactic Acid Sohail (0.7-2.0) mmol/L Calcium 9.0 (8.4-10.2) mg/dL Magnesium 1.6 (1.6-2.3) mg/dL Total Bilirubin 0.6 (0.2-1.3) mg/dL AST 145 H (17-59) U/L ALT 141 H (4-49) U/L Alkaline Phosphatase 51 (38-126) U/L Troponin I (0.000-0.034) ng/mL Total Protein 7.5 (6.3-8.2) g/dL Albumin 3.7 (3.5-5.0) g/dL Urine Color Urine Appearance (Clear) Urine pH (5.0-8.0) Ur Specific Bruce (1.001-1.035) Urine Protein (Negative) Urine Glucose (UA) (Negative) Urine Ketones (Negative) Urine Blood (Negative) Urine Nitrite (Negative) Urine Bilirubin (Negative) Urine Urobilinogen (<2.0) mg/dL Ur Leukocyte Esterase (Negative) Salicylates <1.0 mg/dL Urine Opiates Screen Detected H (NotDetected) Ur Oxycodone Screen Not Detected (NotDetected) Urine Methadone Screen Not Detected (NotDetected) Ur Propoxyphene Screen Not Detected (NotDetected) Acetaminophen <10.0 ug/mL Ur Barbiturates Screen Not Detected (NotDetected) U Tricyclic Antidepress Detected H (NotDetected) Ur Phencyclidine Scrn Not Detected (NotDetected) Ur Amphetamines Screen Detected H (NotDetected) U Methamphetamines Scrn Detected H (NotDetected) U Benzodiazepines Scrn Detected H (NotDetected) Urine Cocaine Screen Detected H (NotDetected) U Marijuana (THC) Screen Detected H (NotDetected) Serum Alcohol <10 mg/dL 09/27/21 09/27/21 09/27/21 Range/Units 21:09 21:09 21:09 WBC (3.8-10.6) k/uL RBC (4.30-5.90) m/uL Hgb (13.0-17.5) gm/dL Hct (39.0-53.0) % MCV (80.0-100.0) fL MCH (25.0-35.0) pg MCHC (31.0-37.0) g/dL RDW (11.5-15.5) % Plt Count (150-450) k/uL MPV Neutrophils % % Lymphocytes % % Monocytes % % Eosinophils % % Basophils % % Neutrophils # (1.3-7.7) k/uL Lymphocytes # (1.0-4.8) k/uL Monocytes # (0-1.0) k/uL Eosinophils # (0-0.7) k/uL Basophils # (0-0.2) k/uL PT 11.0 (9.0-12.0) sec INR 1.0 (<1.2) Sodium (137-145) mmol/L Potassium (3.5-5.1) mmol/L Chloride (98-107) mmol/L Carbon Dioxide (22-30) mmol/L Anion Gap mmol/L BUN (9-20) mg/dL Creatinine (0.66-1.25) mg/dL Est GFR (CKD-EPI)AfAm (>60 ml/min/1.73 sqM) Est GFR (CKD-EPI)NonAf (>60 ml/min/1.73 sqM) Glucose (74-99) mg/dL Plasma Lactic Acid Sohail 1.1 (0.7-2.0) mmol/L Calcium (8.4-10.2) mg/dL Magnesium (1.6-2.3) mg/dL Total Bilirubin (0.2-1.3) mg/dL AST (17-59) U/L ALT (4-49) U/L Alkaline Phosphatase (38-126) U/L Troponin I (0.000-0.034) ng/mL Total Protein (6.3-8.2) g/dL Albumin (3.5-5.0) g/dL Urine Color Yellow Urine Appearance Clear (Clear) Urine pH 6.5 (5.0-8.0) Ur Specific Bruce 1.027 (1.001-1.035) Urine Protein Trace H (Negative) Urine Glucose (UA) Negative (Negative) Urine Ketones 2+ H (Negative) Urine Blood Negative (Negative) Urine Nitrite Negative (Negative) Urine Bilirubin Negative (Negative) Urine Urobilinogen <2.0 (<2.0) mg/dL Ur Leukocyte Esterase Negative (Negative) Salicylates mg/dL Urine Opiates Screen (NotDetected) Ur Oxycodone Screen (NotDetected) Urine Methadone Screen (NotDetected) Ur Propoxyphene Screen (NotDetected) Acetaminophen ug/mL Ur Barbiturates Screen (NotDetected) U Tricyclic Antidepress (NotDetected) Ur Phencyclidine Scrn (NotDetected) Ur Amphetamines Screen (NotDetected) U Methamphetamines Scrn (NotDetected) U Benzodiazepines Scrn (NotDetected) Urine Cocaine Screen (NotDetected) U Marijuana (THC) Screen (NotDetected) Serum Alcohol mg/dL 09/27/21 Range/Units 21:09 WBC (3.8-10.6) k/uL RBC (4.30-5.90) m/uL Hgb (13.0-17.5) gm/dL Hct (39.0-53.0) % MCV (80.0-100.0) fL MCH (25.0-35.0) pg MCHC (31.0-37.0) g/dL RDW (11.5-15.5) % Plt Count (150-450) k/uL MPV Neutrophils % % Lymphocytes % % Monocytes % % Eosinophils % % Basophils % % Neutrophils # (1.3-7.7) k/uL Lymphocytes # (1.0-4.8) k/uL Monocytes # (0-1.0) k/uL Eosinophils # (0-0.7) k/uL Basophils # (0-0.2) k/uL PT (9.0-12.0) sec INR (<1.2) Sodium (137-145) mmol/L Potassium (3.5-5.1) mmol/L Chloride (98-107) mmol/L Carbon Dioxide (22-30) mmol/L Anion Gap mmol/L BUN (9-20) mg/dL Creatinine (0.66-1.25) mg/dL Est GFR (CKD-EPI)AfAm (>60 ml/min/1.73 sqM) Est GFR (CKD-EPI)NonAf (>60 ml/min/1.73 sqM) Glucose (74-99) mg/dL Plasma Lactic Acid Sohail (0.7-2.0) mmol/L Calcium (8.4-10.2) mg/dL Magnesium (1.6-2.3) mg/dL Total Bilirubin (0.2-1.3) mg/dL AST (17-59) U/L ALT (4-49) U/L Alkaline Phosphatase (38-126) U/L Troponin I 0.013 (0.000-0.034) ng/mL Total Protein (6.3-8.2) g/dL Albumin (3.5-5.0) g/dL Urine Color Urine Appearance (Clear) Urine pH (5.0-8.0) Ur Specific Bruce (1.001-1.035) Urine Protein (Negative) Urine Glucose (UA) (Negative) Urine Ketones (Negative) Urine Blood (Negative) Urine Nitrite (Negative) Urine Bilirubin (Negative) Urine Urobilinogen (<2.0) mg/dL Ur Leukocyte Esterase (Negative) Salicylates mg/dL Urine Opiates Screen (NotDetected) Ur Oxycodone Screen (NotDetected) Urine Methadone Screen (NotDetected) Ur Propoxyphene Screen (NotDetected) Acetaminophen ug/mL Ur Barbiturates Screen (NotDetected) U Tricyclic Antidepress (NotDetected) Ur Phencyclidine Scrn (NotDetected) Ur Amphetamines Screen (NotDetected) U Methamphetamines Scrn (NotDetected) U Benzodiazepines Scrn (NotDetected) Urine Cocaine Screen (NotDetected) U Marijuana (THC) Screen (NotDetected) Serum Alcohol mg/dL Disposition Clinical Impression: Lack of housing, Opioid use disorder, Methamphetamine use disorder, moderate, Cocaine abuse Disposition: HOME SELF-CARE Condition: Fair Instructions (If sedation given, give patient instructions): Adult Overdose (ED) Is patient prescribed a controlled substance at d/c from ED?: No Referrals: None,Stated [Primary Care Provider] - 1-2 days Anayeli Ballard MD [REFERRING] - 1-2 days Time of Disposition: 23:14
[2021-09-27 22:35] LABS: Appearance,Urine Clear (Clear); Bilirubin,Urine Negative (Negative); Blood,Urine Negative (Negative); Color,Urine Yellow; Glucose,Urine (UA) Negative (Negative); Ketones,Urine 2+ (Negative); Leukocyte Esterase,Urine Negative (Negative); Nitrite,Urine Negative (Negative); PH, Urine 6.5 (5.0-8.0); Protein,Urine Trace (Negative); Specific Gravity,Urine 1.027 (1.001-1.035); Urobilinogen,Urine <2.0 mg/dL (<2.0)
[2021-09-27 22:50] LABS: Amphetamine Screen,Urine Detected (NotDetected); Barbiturate Screen,Urine Not Detected (NotDetected); Benzodiazepines Screen,Urine Detected (NotDetected); Cocaine Screen,Urine Detected (NotDetected); Methadone Screen, Urine Not Detected (NotDetected); Opiate Screen,Urine Detected (NotDetected); Oxycodone Screen, Urine Not Detected (NotDetected); Phencyclidine Screen,Urine Not Detected (NotDetected); Tricyclic Antidepressant,Urine Detected (NotDetected); Urn Cannabinoid Scrn Detected (NotDetected)
[2021-09-27] MEDS ORDERED: POTASSIUM CHLORIDE ER 20 MEQ TAB.ER PO STA (22:53)
[2021-09-27] MEDS ORDERED: SODIUM CHLORIDE 0.9% 500 ML 500 ML IV ONE (22:55)
[2021-09-28 00:52] VITALS: BP 139/91; PULSE 110; RESP 18; TEMP 98.1
== END 2021-09-28 00:30 | disposition home or self-care (01) ==
LOC: EC 19:53
DX: F11.10 Opioid abuse, uncomplicated (principal); F15.20 Other stimulant dependence, uncomplicated; F14.10 Cocaine abuse, uncomplicated; F17.200 Nicotine dependence, unspecified, uncomplicated; I10 Essential (primary) hypertension; Z59.00 Homelessness unspecified
CPT/HCPCS: 99285 ×2; 96374 ×2; 96361 ×2; 36415; 93005; 80053; 83605; 83735; 84484; 85025; 85610; 81003; 80306; 80143; 80179; G0480; J2060; 80320

== ENCOUNTER 2021-12-15 18:55 | Observation (INO) | payer OTHER ==
[2021-12-15] MEDS ORDERED: SODIUM CHLORIDE 0.9% 1,000 ML IV STA (19:15)
[2021-12-15] MEDS ORDERED: LORazepam 2 MG/ML INJ IV STA (19:18)
--- NOTE | 2021-12-15 19:28 | ED ---
Psych HPI - General Chief Complaint: Psychiatric Symptoms Stated Complaint: Mental Health Time Seen by Provider: 12/15/21 19:08 Source: patient, RN notes reviewed Mode of arrival: ambulatory - History of Present Illness Initial Comments: This is a pleasant 36-year-old male who comes over from the [facility] for aggression, anxiety, and mental health issues. Patient states that he has increased anxiety. Patient denies any illicit drug abuse. Patient has been at the [facility] for about 3 weeks. Patient states he has a previous diagnosis of both schizo effective disorder and schizophrenia. Patient states he commonly has both auditory and visual hallucinations. He states these are not worse than usual. Patient tells me that both his mother and father . This seems to be a source of his anxiety. Denies any recent illness. There was noted in triage the patient may have a Narcan pen, however, the patient is denying this to me. Apparently the [facility] does not have such medications. Patient denying any chest pain. He denies any shortness of breath. He denies any suicidality or homicidality. No abdominal pain. No nausea or vomiting. Patient states he feels anxious. No vision or hearing changes. No headache. - Related Data Home Medications Medication Instructions Recorded Confirmed QUEtiapine FUMARATE [SEROquel] 600 mg PO HS 09/27/21 12/15/21 Benztropine Mesylate [Cogentin] 2 mg PO BID 12/15/21 12/15/21 QUEtiapine FUMARATE [SEROquel] 200 mg PO DAILY 12/15/21 12/15/21 Sublocade 300mg/1.5ml Xr Solution 300 mg SQ Q28D 12/15/21 12/15/21 Venlafaxine HCl [Effexor XR] 150 mg PO DAILY 12/15/21 12/15/21 buPROPion HCL [buPROPion HCL XL] 450 mg PO DAILY 12/15/21 12/15/21 cloNIDine HCL [Catapres] 0.1 mg PO BID 12/15/21 12/15/21 Previous Rx's Medication Instructions Recorded busPIRone HCL 15 mg PO BID 30 Days tab 07/20/21 Allergies Allergy/AdvReac Type Severity Reaction Status Date / Time No Known Allergies Allergy Verified 12/15/21 18:58 Review of Systems ROS Statement: Those systems with pertinent positive or pertinent negative responses have been documented in the HPI. ROS Other: All systems not noted in ROS Statement are negative. Past Medical History Past Medical History: GERD/Reflux, Hypertension, Liver Disease, No Reported History Additional Past Medical History / Comment(s): Hepatitis C, DDD, back pain, bilateral carpel tunnel syndrome. He reports that he has heart disease that was found when he had kidney problems but he denies having a stress test or cardiac catheterization. History of Any Multi-Drug Resistant Organisms: None Reported MDRO Source:: unknown Past Surgical History: No Surgical Hx Reported, Unable to Obtain Past Anesthesia/Blood Transfusion Reactions: No Reported Reaction, Unable to Obtain Additional Past Anesthesia/Blood Transfusion Reaction / Comment(s): Pt states he has never had surgery. Past Psychological History: Anxiety, Depression, Unable to Obtain Smoking Status: Current every day smoker Past Alcohol Use History: Occasional Past Drug Use History: Heroin, Marijuana, Methamphetamine - Past Family History Father Family Medical History: Coronary Artery Disease (CAD) Additional Family Medical History / Comment(s): Father is . Mother Family Medical History: Rheumatoid Arthritis (RA) Additional Family Medical History / Comment(s): Mother is . General Exam - General Exam Comments Initial Comments: Anxious appearing 36-year-old male in minimal distress. Patient does not appear to be ill but does appear to be diaphoretic. Patient is alert and oriented 4. Cranial nerves II through XII grossly intact. Generalized tremor noted. Limitations: no limitations General appearance: alert, in distress Head exam: Present: atraumatic, normocephalic, normal inspection Eye exam: Present: normal appearance, PERRL, EOMI. Absent: scleral icterus, conjunctival injection, nystagmus, periorbital swelling Pupils: Absent: unequal, miosis ENT exam: Present: normal exam, mucous membranes moist Neck exam: Present: normal inspection, full ROM. Absent: tenderness, meningismus, lymphadenopathy Respiratory exam: Present: normal lung sounds bilaterally. Absent: respiratory distress, wheezes, rales, rhonchi, stridor, chest wall tenderness, accessory muscle use Cardiovascular Exam: Present: normal rhythm, tachycardia, normal heart sounds. Absent: systolic murmur, diastolic murmur, rubs, gallop, clicks GI/Abdominal exam: Present: soft, normal bowel sounds. Absent: distended, tenderness, guarding, rebound, rigid Extremities exam: Present: normal inspection, full ROM, normal capillary refill. Absent: tenderness, pedal edema, joint swelling, calf tenderness Back exam: Present: normal inspection Neurological exam: Present: alert, oriented X3, CN II-XII intact, normal gait. Absent: abnormal gait, motor sensory deficit Psychiatric exam: Present: normal mood, anxious. Absent: depressed, agitated, flat affect Skin exam: Present: warm, intact, normal color, diaphoretic. Absent: rash Course Vital Signs 12/15/21 12/15/21 12/15/21 18:58 20:37 23:00 Temperature 98.5 F 97.5 F L Pulse Rate 101 H 97 105 H Respiratory 22 24 16 Rate Blood Pressure 110/58 126/74 131/75 O2 Sat by Pulse 96 94 L Oximetry Medical Decision Making - Medical Decision Making Patient presents with acute psychosis. Patient's laboratory workup was essentially benign. It is positive for tricyclic antidepressants however the patient is on medications which could cause a false positive. Also positive for marijuana. Patient has been at the [facility]. Patient admitted medically [facility] The case was discussed in detail with ED attending physician. Presentation, findings, treatment plan discussed in detail. Patient required multiple agents in the ER for sedation. Patient received Geodon 20 mg IM, lorazepam 2 mg IV push, patient then took out his own IV. Patient received an additional 4 mg of lorazepam IM. - Lab Data Result diagrams: 12/15/21 19:44 12/15/21 19:44 Lab Results 12/15/21 12/15/21 12/15/21 Range/Units 19:44 19:44 19:44 WBC 7.2 (3.8-10.6) k/uL RBC 4.47 (4.30-5.90) m/uL Hgb 12.9 L (13.0-17.5) gm/dL Hct 39.1 (39.0-53.0) % MCV 87.6 (80.0-100.0) fL MCH 28.8 (25.0-35.0) pg MCHC 32.9 (31.0-37.0) g/dL RDW 14.4 (11.5-15.5) % Plt Count 170 (150-450) k/uL MPV 9.5 Neutrophils % 64 % Lymphocytes % 21 % Monocytes % 7 % Eosinophils % 5 % Basophils % 1 % Neutrophils # 4.6 (1.3-7.7) k/uL Lymphocytes # 1.5 (1.0-4.8) k/uL Monocytes # 0.5 (0-1.0) k/uL Eosinophils # 0.3 (0-0.7) k/uL Basophils # 0.1 (0-0.2) k/uL Sodium 139 (137-145) mmol/L Potassium 4.5 (3.5-5.1) mmol/L Chloride 106 (98-107) mmol/L Carbon Dioxide 25 (22-30) mmol/L Anion Gap 8 mmol/L BUN 19 (9-20) mg/dL Creatinine 0.92 (0.66-1.25) mg/dL Est GFR (CKD-EPI)AfAm >90 (>60 ml/min/1.73 sqM) Est GFR (CKD-EPI)NonAf >90 (>60 ml/min/1.73 sqM) Glucose 86 (74-99) mg/dL POC Glucose (mg/dL) (75-99) mg/dL POC Glu Recycling Technician ID Calcium 9.3 (8.4-10.2) mg/dL Total Bilirubin 0.3 (0.2-1.3) mg/dL Conjugated Bilirubin 0.0 (0.0-0.3) mg/dL Unconjugated Bilirubin 0.2 (0.0-1.1) mg/dL Delta Bilirubin 0.1 (0.0-0.2) mg/dL AST 274 H (17-59) U/L ALT 303 H (4-49) U/L Alkaline Phosphatase 51 (38-126) U/L Ammonia (<30) umol/L Troponin I <0.012 (0.000-0.034) ng/mL Total Protein 7.8 (6.3-8.2) g/dL Albumin 4.0 (3.5-5.0) g/dL Lipase 46 (23-300) U/L TSH 2.110 (0.465-4.680) mIU/L Urine Color Urine Appearance (Clear) Urine pH (5.0-8.0) Ur Specific Stuart (1.001-1.035) Urine Protein (Negative) Urine Glucose (UA) (Negative) Urine Ketones (Negative) Urine Blood (Negative) Urine Nitrite (Negative) Urine Bilirubin (Negative) Urine Urobilinogen (<2.0) mg/dL Ur Leukocyte Esterase (Negative) Salicylates <1.0 mg/dL Urine Opiates Screen (NotDetected) Ur Oxycodone Screen (NotDetected) Urine Methadone Screen (NotDetected) Ur Propoxyphene Screen (NotDetected) Acetaminophen <10.0 ug/mL Ur Barbiturates Screen (NotDetected) U Tricyclic Antidepress (NotDetected) Ur Phencyclidine Scrn (NotDetected) Ur Amphetamines Screen (NotDetected) U Methamphetamines Scrn (NotDetected) U Benzodiazepines Scrn (NotDetected) Urine Cocaine Screen (NotDetected) U Marijuana (THC) Screen (NotDetected) Serum Alcohol <10 mg/dL 12/15/21 12/15/21 12/15/21 Range/Units 20:36 21:40 21:40 WBC (3.8-10.6) k/uL RBC (4.30-5.90) m/uL Hgb (13.0-17.5) gm/dL Hct (39.0-53.0) % MCV (80.0-100.0) fL MCH (25.0-35.0) pg MCHC (31.0-37.0) g/dL RDW (11.5-15.5) % Plt Count (150-450) k/uL MPV Neutrophils % % Lymphocytes % % Monocytes % % Eosinophils % % Basophils % % Neutrophils # (1.3-7.7) k/uL Lymphocytes # (1.0-4.8) k/uL Monocytes # (0-1.0) k/uL Eosinophils # (0-0.7) k/uL Basophils # (0-0.2) k/uL Sodium (137-145) mmol/L Potassium (3.5-5.1) mmol/L Chloride (98-107) mmol/L Carbon Dioxide (22-30) mmol/L Anion Gap mmol/L BUN (9-20) mg/dL Creatinine (0.66-1.25) mg/dL Est GFR (CKD-EPI)AfAm (>60 ml/min/1.73 sqM) Est GFR (CKD-EPI)NonAf (>60 ml/min/1.73 sqM) Glucose (74-99) mg/dL POC Glucose (mg/dL) 87 (75-99) mg/dL POC Glu Recycling Technician ID Hector King Calcium (8.4-10.2) mg/dL Total Bilirubin (0.2-1.3) mg/dL Conjugated Bilirubin (0.0-0.3) mg/dL Unconjugated Bilirubin (0.0-1.1) mg/dL Delta Bilirubin (0.0-0.2) mg/dL AST (17-59) U/L ALT (4-49) U/L Alkaline Phosphatase (38-126) U/L Ammonia (<30) umol/L Troponin I (0.000-0.034) ng/mL Total Protein (6.3-8.2) g/dL Albumin (3.5-5.0) g/dL Lipase (23-300) U/L TSH (0.465-4.680) mIU/L Urine Color Yellow Urine Appearance Clear (Clear) Urine pH 5.5 (5.0-8.0) Ur Specific Stuart 1.025 (1.001-1.035) Urine Protein Negative (Negative) Urine Glucose (UA) Negative (Negative) Urine Ketones Negative (Negative) Urine Blood Negative (Negative) Urine Nitrite Negative (Negative) Urine Bilirubin Negative (Negative) Urine Urobilinogen 2.0 (<2.0) mg/dL Ur Leukocyte Esterase Negative (Negative) Salicylates mg/dL Urine Opiates Screen Not Detected (NotDetected) Ur Oxycodone Screen Not Detected (NotDetected) Urine Methadone Screen Not Detected (NotDetected) Ur Propoxyphene Screen Not Detected (NotDetected) Acetaminophen ug/mL Ur Barbiturates Screen Not Detected (NotDetected) U Tricyclic Antidepress Detected H (NotDetected) Ur Phencyclidine Scrn Not Detected (NotDetected) Ur Amphetamines Screen Not Detected (NotDetected) U Methamphetamines Scrn Not Detected (NotDetected) U Benzodiazepines Scrn Not Detected (NotDetected) Urine Cocaine Screen Not Detected (NotDetected) U Marijuana (THC) Screen Detected H (NotDetected) Serum Alcohol mg/dL 12/15/21 Range/Units 21:56 WBC (3.8-10.6) k/uL RBC (4.30-5.90) m/uL Hgb (13.0-17.5) gm/dL Hct (39.0-53.0) % MCV (80.0-100.0) fL MCH (25.0-35.0) pg MCHC (31.0-37.0) g/dL RDW (11.5-15.5) % Plt Count (150-450) k/uL MPV Neutrophils % % Lymphocytes % % Monocytes % % Eosinophils % % Basophils % % Neutrophils # (1.3-7.7) k/uL Lymphocytes # (1.0-4.8) k/uL Monocytes # (0-1.0) k/uL Eosinophils # (0-0.7) k/uL Basophils # (0-0.2) k/uL Sodium (137-145) mmol/L Potassium (3.5-5.1) mmol/L Chloride (98-107) mmol/L Carbon Dioxide (22-30) mmol/L Anion Gap mmol/L BUN (9-20) mg/dL Creatinine (0.66-1.25) mg/dL Est GFR (CKD-EPI)AfAm (>60 ml/min/1.73 sqM) Est GFR (CKD-EPI)NonAf (>60 ml/min/1.73 sqM) Glucose (74-99) mg/dL POC Glucose (mg/dL) (75-99) mg/dL POC Glu Recycling Technician ID Calcium (8.4-10.2) mg/dL Total Bilirubin (0.2-1.3) mg/dL Conjugated Bilirubin (0.0-0.3) mg/dL Unconjugated Bilirubin (0.0-1.1) mg/dL Delta Bilirubin (0.0-0.2) mg/dL AST (17-59) U/L ALT (4-49) U/L Alkaline Phosphatase (38-126) U/L Ammonia 20 (<30) umol/L Troponin I (0.000-0.034) ng/mL Total Protein (6.3-8.2) g/dL Albumin (3.5-5.0) g/dL Lipase (23-300) U/L TSH (0.465-4.680) mIU/L Urine Color Urine Appearance (Clear) Urine pH (5.0-8.0) Ur Specific Stuart (1.001-1.035) Urine Protein (Negative) Urine Glucose (UA) (Negative) Urine Ketones (Negative) Urine Blood (Negative) Urine Nitrite (Negative) Urine Bilirubin (Negative) Urine Urobilinogen (<2.0) mg/dL Ur Leukocyte Esterase (Negative) Salicylates mg/dL Urine Opiates Screen (NotDetected) Ur Oxycodone Screen (NotDetected) Urine Methadone Screen (NotDetected) Ur Propoxyphene Screen (NotDetected) Acetaminophen ug/mL Ur Barbiturates Screen (NotDetected) U Tricyclic Antidepress (NotDetected) Ur Phencyclidine Scrn (NotDetected) Ur Amphetamines Screen (NotDetected) U Methamphetamines Scrn (NotDetected) U Benzodiazepines Scrn (NotDetected) Urine Cocaine Screen (NotDetected) U Marijuana (THC) Screen (NotDetected) Serum Alcohol mg/dL - EKG Data EKG Comments: EKG done at 2328 and regular ED attending physician reveals normal sinus rhythm with a rate of 89, normal intervals, normal axis, no acute ST or T-wave changes. Minimal baseline artifact. Disposition Clinical Impression: Acute anxiety, Acute psychosis, Hallucinations Disposition: ADMITTED IP TO THIS [facility] Condition: Stable Time of Disposition: 23:22 Decision to Admit Reason: Admit from EC Decision Time: 23:22
[2021-12-15 19:49] LABS: Basophils # (A) 0.1 k/uL (0-0.2); Basophils % (A) 1 %; Eosinophils # (A) 0.3 k/uL (0-0.7); Eosinophils % (A) 5 %; HCT 39.1 % (39.0-53.0); HGB 12.9 gm/dL (13.0-17.5); Lymphocytes # (A) 1.5 k/uL (1.0-4.8); Lymphocytes % (A) 21 %; MCH 28.8 pg (25.0-35.0); MCHC 32.9 g/dL (31.0-37.0); MCV 87.6 fL (80.0-100.0); Mean Platelet Volume 9.5; Monocytes # (A) 0.5 k/uL (0-1.0); Monocytes % (A) 7 %; Neutrophils # (A) 4.6 k/uL (1.3-7.7); Neutrophils % (A) 64 %; Platelet Count 170 k/uL (150-450); RBC 4.47 m/uL (4.30-5.90); RDW 14.4 % (11.5-15.5); WBC 7.2 k/uL (3.8-10.6)
[2021-12-15 20:00] LABS: ALT 303 U/L (4-49); AST 274 U/L (17-59); Acetaminophen <10.0 ug/mL; African American GFR (CKD) >90 (>60 ml/min/1.73 sqM); Alcohol <10 mg/dL; Alkaline Phosphatase 51 U/L (38-126); Anion Gap 8 mmol/L; Bilirubin, Delta 0.1 mg/dL (0.0-0.2); Bilirubin,Unconjugated 0.2 mg/dL (0.0-1.1); Blood Urea Nitrogen 19 mg/dL (9-20); Calcium 9.3 mg/dL (8.4-10.2); Carbon Dioxide 25 mmol/L (22-30); Chloride 106 mmol/L (98-107); Glucose 86 mg/dL (74-99); Lipase 46 U/L (23-300); Non-African American GFR(CKD) >90 (>60 ml/min/1.73 sqM); Potassium 4.5 mmol/L (3.5-5.1); Salicylate <1.0 mg/dL; Sodium 139 mmol/L (137-145); Total Bilirubin 0.3 mg/dL (0.2-1.3); Total Protein 7.8 g/dL (6.3-8.2)
[2021-12-15] MEDS ORDERED: ZIPRASIDONE 20 MG VIAL IM STA (20:15)
[2021-12-15 20:37] LABS: Glucose,Whole Blood 87 mg/dL (75-99)
[2021-12-15 21:51] LABS: Appearance,Urine Clear (Clear); Bilirubin,Urine Negative (Negative); Blood,Urine Negative (Negative); Color,Urine Yellow; Glucose,Urine (UA) Negative (Negative); Ketones,Urine Negative (Negative); Leukocyte Esterase,Urine Negative (Negative); Nitrite,Urine Negative (Negative); PH, Urine 5.5 (5.0-8.0); Protein,Urine Negative (Negative); Specific Gravity,Urine 1.025 (1.001-1.035)
[2021-12-15] MEDS ORDERED: LORazepam 2 MG/ML INJ IM STA ×2 (22:00→23:11)
[2021-12-15 22:11] LABS: Amphetamine Screen,Urine Not Detected (NotDetected); Barbiturate Screen,Urine Not Detected (NotDetected); Benzodiazepines Screen,Urine Not Detected (NotDetected); Cocaine Screen,Urine Not Detected (NotDetected); Methadone Screen, Urine Not Detected (NotDetected); Opiate Screen,Urine Not Detected (NotDetected); Oxycodone Screen, Urine Not Detected (NotDetected); Phencyclidine Screen,Urine Not Detected (NotDetected); Tricyclic Antidepressant,Urine Detected (NotDetected); Urn Cannabinoid Scrn Detected (NotDetected)
[2021-12-15] MEDS ORDERED: diphenhydrAMINE 50 MG/ML 1 ML VIAL IM STA (23:11)
[2021-12-15] MEDS ORDERED: NALOXONE 0.4 MG/ML 1 ML VIAL IV PRN (23:18)
[2021-12-15] MEDS ORDERED: ACETAMINOPHEN TAB 325 MG TAB PO PRN (23:18)
[2021-12-15] MEDS ORDERED: LORazepam 2 MG/ML INJ IM PRN (23:18)
[2021-12-16] MEDS ORDERED: LORazepam 2 MG/ML INJ IV PRN (09:05)
[2021-12-16] MEDS ORDERED: buPROPion XL 150 MG TAB.ER.24H PO SCH (13:15)
--- NOTE | 2021-12-16 13:57 | P.HPIM ---
History of Present Illness H&P Date: 12/16/21 Chief Complaint: Psychosis Patient is a 56-year-old male with a known history of hypertension, GERD, hepatitis C not treated, chronic back pain, anxiety/depression, schizoaffective disorder currently everyday smoker and occasional heroin, marijuana use was brought to the hospital from the [facility] due to agitation, anxiety and psychotic symptoms. Patient has been at the [facility] for about 3 weeks. He has been hearing voices and hallucinating. Patient otherwise denied any complaints of chest pain or shortness of breath. Denied any fever or chills at home. No nausea vomiting abdominal pain or diarrhea. Denied any dysuria or hematuria. No headache or visual changes. Laboratory showed WBC 7.2 hemoglobin 12.9 platelets 170 Sodium 139 potassium 4.5 chloride 106 bicarb is 25 BUN 19 and creatinine 0.92 AST 274 and ALT 303 alk phos 51 Troponin x1 - ammonia 20 TSH 2.11 and albumin 4.0 lipase 46 UDS is positive for tricyclic antidepressants and marijuana. UA is negative for infection Coronavirus PCR not detected. Review of Systems Complete review of systems could not be obtained from the patient except as per HPI Past Medical History Past Medical History: GERD/Reflux, Hypertension, Liver Disease, No Reported History Additional Past Medical History / Comment(s): Hepatitis C, DDD, back pain, bilateral carpel tunnel syndrome. He reports that he has heart disease that was found when he had kidney problems but he denies having a stress test or cardiac catheterization. History of Any Multi-Drug Resistant Organisms: None Reported MDRO Source:: unknown Past Surgical History: No Surgical Hx Reported, Unable to Obtain Past Anesthesia/Blood Transfusion Reactions: No Reported Reaction, Unable to Obtain Additional Past Anesthesia/Blood Transfusion Reaction / Comment(s): Pt states he has never had surgery. Past Psychological History: Anxiety, Depression, Unable to Obtain Smoking Status: Current every day smoker Past Alcohol Use History: Occasional Past Drug Use History: Heroin, Marijuana, Methamphetamine - Past Family History Father Family Medical History: Coronary Artery Disease (CAD) Additional Family Medical History / Comment(s): Father is . Mother Family Medical History: Rheumatoid Arthritis (RA) Additional Family Medical History / Comment(s): Mother is . Medications and Allergies Home Medications Medication Instructions Recorded Confirmed Type busPIRone HCL 15 mg PO BID 30 Days tab 07/20/21 12/15/21 Rx QUEtiapine FUMARATE [SEROquel] 600 mg PO HS 09/27/21 12/15/21 History Benztropine Mesylate [Cogentin] 2 mg PO BID 12/15/21 12/15/21 History QUEtiapine FUMARATE [SEROquel] 200 mg PO DAILY 12/15/21 12/15/21 History Sublocade 300mg/1.5ml Xr Solution 300 mg SQ Q28D 12/15/21 12/15/21 History Venlafaxine HCl [Effexor XR] 150 mg PO DAILY 12/15/21 12/15/21 History buPROPion HCL [buPROPion HCL XL] 450 mg PO DAILY 12/15/21 12/15/21 History cloNIDine HCL [Catapres] 0.1 mg PO BID 12/15/21 12/15/21 History Allergies Allergy/AdvReac Type Severity Reaction Status Date / Time No Known Allergies Allergy Verified 12/15/21 18:58 Physical Exam Vitals: Vital Signs Temp Pulse Pulse Resp BP BP Pulse Ox 12/16/21 08:00 81 20 12/16/21 07:00 89 20 108/60 100 12/16/21 05:30 98 F 78 20 115/68 97 12/16/21 02:00 18 12/16/21 00:00 97.4 F L 93 19 124/78 97 12/15/21 23:00 105 H 16 131/75 94 L 12/15/21 20:37 97.5 F L 97 24 126/74 12/15/21 18:58 98.5 F 101 H 22 110/58 96 Intake and Output 12/15/21 12/16/21 12/16/21 22:59 06:59 14:59 Intake Total 540 Balance 540 Intake: Oral 540 Other: Voiding Method Toilet Toilet # Voids 1 Weight 84.822 kg PHYSICAL EXAMINATION: Patient is lying in the bed comfortably, no acute distress, awake alert and oriented. Anxious and agitated at times.. HEENT: Normocephalic. Neck is supple. Pupils reactive. Nostrils clear. Oral cavity is moist. Neck reveals no JVD, carotid bruits, or thyromegaly. CHEST EXAMINATION: Trachea is central. Symmetrical expansion. Lung peña clear to auscultation and percussion. CARDIAC: Normal S1, S2 with no gallops. No murmurs ABDOMEN: Soft. Bowel sounds normal. No organomegaly. No abdominal bruits. Extremities: reveal no edema. No clubbing or cyanosis Neurologically awake, alert, oriented x3 with well-coordinated movements. No focal deficits noted Skin: No rash or skin lesions. Psychiatric: Not cooperative Musculoskeletal: No joint swelling or deformity. Normal range of motion. Results CBC & Chem 7: 12/15/21 19:44 12/15/21 19:44 Labs: Abnormal Lab Results - Last 24 Hours (Table) 12/15/21 12/15/21 12/15/21 Range/Units 19:44 19:44 21:40 Hgb 12.9 L (13.0-17.5) gm/dL AST 274 H (17-59) U/L ALT 303 H (4-49) U/L U Tricyclic Antidepress Detected H (NotDetected) U Marijuana (THC) Screen Detected H (NotDetected) Thrombosis Risk Factor Assmnt - DVT/VTE Prophylaxis DVT/VTE Prophylaxis: Pharmacologic Prophylaxis ordered Assessment and Plan Assessment: Acute psychosis History of schizoaffective disorder Anxiety/depression Marijuana use and nicotine addiction History of heroine and methamphetamine use Hypertension GERD Elevated AST and ALT levels with history of hep C diagnosed 10 years ago. Not treated. Chronic back pain DVT prophylaxis with early ambulation Plan: Patient was given IV hydration in the ER. Ativan as needed for agitation. Continue with home antidepressants and other mental health medications. Psychiatry service will be consulted. Continue with bedside sitter and elopement precautions. Patient is medically cleared for discharge to inpatient psychiatric unit. Time with Patient: Greater than 30
[2021-12-16] MEDS ORDERED: diphenhydrAMINE 50 MG CAP PO PRN (15:22)
[2021-12-16] MEDS ORDERED: hydrOXYzine pamoate 25 MG CAP PO PRN (15:23)
[2021-12-16] MEDS ORDERED: PROPRANOLOL 20 MG TAB PO PRN (15:25)
--- NOTE | 2021-12-16 15:25 | P.CN ---
Psychiatric Consult - . Consult date: 12/16/21 Consult:: 12/16/21 14:43 IDENTIFYING DATA: This patient is a 36-year-old male with history of polysubstance abuse and schizoaffective disorder who is currently living at [facility]. HISTORY OF PRESENT ILLNESS: The patient presented to the hospital from [facility] and supposedly was acting aggressive, anxious and displaying psychotic behaviors. Patient was apparently at [facility] for the past 3 weeks. His UDS was positive for TCA, THC. Blood alcohol level was negative. Psychiatry was consulted for evaluation due to patient's alleged psychosis and anxious behavior. One to one sitter. Patient's nurse states that he has been restless and preoccupied with discharge and acting bizarre. Patient was seen at the bedside and appeared to be sweating. The disheveled in appearance. He was very minimizing of his symptoms and was very focused on discharge. He states that he stabbed himself with a pencil due to feeling anxious at home and claims that he is feeling impulsive. He claims that he left [facility] a day ago and went to his friend's place. He states that he has a high level anxiety at this time and was seen pacing around the room. He was illogical at times. Very poor insight and judgment. Very poor impulse control. He claims that his sleep has been poor. He claims that he is taking his medications however can only list one or 2 of them. At this time he is denying any auditory or visual hallucinations. He is denying any suicidal or homicidal ideations intent or plan. PAST PSYCHIATRIC HISTORY: Patient has a a history of polysubstance abuse and schizoaffective disorder. Patient has been on several different medications in the past including paliperidone and Seroquel, Haldol along with Zoloft and Effexor. Patient has had several different psychiatric hospitalizations and also has been court ordered in the past and is currently on a deferral. Patient at this time is currently following up at [facility] with Dr. Edouard for his monthly Haldol injections every 3 weeks. Patient denies any history of suicide attempts in the past. PAST MEDICAL HISTORY: Hepatitis C. ALLERGIES: as per EMR. CHEMICAL DEPENDENCY HISTORY: as per HPI. FAMILY PSYCHIATRIC/SUBSTANCE USE HISTORY: Denies SOCIAL HISTORY: Patient is currently living at [facility] and has been homeless chronically in the past. Denies having any kids. Currently unmarried. MENTAL STATUS EXAM: General Appearance: Patient appears to be discheveled in appearance, older than stated age is alert, restless and difficult to redirect. Patient appears to have poor hygiene and grooming. mustache. Behavior: Patient is seated without any agitated behavior. Appears to be very anxious. Distracted. Impulsive. Speech: Patient's speech is fluent and nonpressured. Mood/Affect: Patient reports their mood is anxious and depressed, affect is congruent and constricted. Suicidality/Homicidality: Patient denies having any homicidal ideation intent or plan. Denies any suicidal ideations intent or plan Perceptions: Patient denies any visual hallucinations and admits to auditory hallucinations. Though content/process: Not endorsing any delusions. Minimizing his mental health issues and medications and need for treatment. Memory and concentration: AOX3, grossly intact for the purposes of this session. Can spell "WORLD" backwards Judgment and insight: Chronically poor IMPRESSIONS: Schizoaffective disorder, depressive type Alcohol use disorder, severe Cocaine use disorder Cannabis use disorders Methamphetamine abuse Nicotine dependence PLAN: -At this time patient DOES meet criteria for inpatient psychiatric admission. -Would recommend the following medication changes/additions: Patient apparently had received Haldol D IM 150 mg recently at [facility], will contact [facility] to confirm this. Will start patient on 100 mg twice a day of Seroquel for anxiety/psychosis/insomnia. Inderal 20 mg twice a day for restlessness/anxiety. BuSpar 15 mg 3 times a day for anxiety. Vistaril when necessary for anxiety. Continue with Effexor 75 mg daily for mood. -Continue 1:1 sitter for safety until patient is admitted to the MHU -Cannot leave AMA at this time. Patient will need a petition and certification if attempting to leave AMA. -When medically stable, patient is eligible for transfer to a psych bed when available. -Communicated plan to patient's nurse -Psychiatry will sign off at this time -Please contact with any questions.
[2021-12-16] MEDS ORDERED: VENLAFAXINE HCL ER 75 MG CAP PO SCH (15:30)
[2021-12-16] MEDS ORDERED: busPIRone HCl 5 MG TAB PO SCH (16:00)
[2021-12-16] MEDS ORDERED: QUEtiapine 100 MG TAB PO STA (17:23)
[2021-12-16 19:41] VITALS: BP 106/70; PULSE 99; RESP 19; TEMP 97.9
[2021-12-16] MEDS ORDERED: QUEtiapine 100 MG TAB PO SCH (21:00)
== END 2021-12-16 20:27 ==
LOC: EC 18:55 → 6NMEDSUR 23:18
PROVIDERS: ADMIT Internal Medicine; ATTEND Internal Medicine
DX: F25.1 Schizoaffective disorder, depressive type (principal); F10.20 Alcohol dependence, uncomplicated; F15.10 Other stimulant abuse, uncomplicated; B19.20 Unspecified viral hepatitis C without hepatic coma; F19.10 Other psychoactive substance abuse, uncomplicated; F41.9 Anxiety disorder, unspecified; F32.A Depression, unspecified; I10 Essential (primary) hypertension; K21.9 Gastro-esophageal reflux disease without esophagitis; G89.29 Other chronic pain; M54.9 Dorsalgia, unspecified; G47.00 Insomnia, unspecified; F17.200 Nicotine dependence, unspecified, uncomplicated; G56.03 Carpal tunnel syndrome, bilateral upper limbs; I51.9 Heart disease, unspecified; Z20.822 Contact with and (suspected) exposure to COVID-19; Z74.3 Need for continuous supervision; Z79.899 Other long term (current) drug therapy; Z63.4 Disappearance and death of family member; Z82.49 Family history of ischemic heart disease and other diseases of the circulatory system; Z82.61 Family history of arthritis
CPT/HCPCS: 96361; 96372; 96374; 99284; 36415; 93005; 80048; 80076; 84443; 82140; 83690; 84484; 85025; 81003; 80306; 80143; 87635; 80179; G0378; G0480; J2060; J3486; 80320

== ENCOUNTER 2021-12-16 19:55 | Inpatient (IN) | payer MEDICAID ==
[2021-12-16] MEDS ORDERED: MAGNESIUM HYDROXIDE 2,400 MG/10 ML CUP PO PRN (20:07)
[2021-12-16] MEDS ORDERED: MAG HYDROX/AL HYDROX/SIMETH 30 ML CUP PO PRN (20:07)
[2021-12-16] MEDS ORDERED: OLANZapine 10 MG VIAL IM PRN (20:19)
[2021-12-16] MEDS: QUEtiapine 100 MG TAB PO SCH (21:14)
[2021-12-16] MEDS: PROPRANOLOL 20 MG TAB PO SCH (21:14)
[2021-12-16] MEDS: busPIRone HCl 5 MG TAB PO SCH (21:14)
[2021-12-16] MEDS: NICOTINE 14MG/24HR PATCH TRANSDERM SCH (21:19)
[2021-12-16] MEDS: hydrOXYzine pamoate 25 MG CAP PO PRN (22:06)
[2021-12-16] MEDS: OLANZapine 7.5 MG TAB PO PRN (22:32)
[2021-12-17] MEDS: IBUPROFEN 600 MG TAB PO PRN (07:44)
[2021-12-17] MEDS: busPIRone HCl 5 MG TAB PO SCH ×3 (07:44→20:48)
[2021-12-17] MEDS: NICOTINE 14MG/24HR PATCH TRANSDERM SCH (07:44)
[2021-12-17] MEDS: QUEtiapine 100 MG TAB PO SCH ×2 (07:44→20:48)
[2021-12-17] MEDS: PROPRANOLOL 20 MG TAB PO SCH ×2 (07:44→20:49)
[2021-12-17] MEDS: VENLAFAXINE HCL ER 75 MG CAP PO SCH (07:44)
[2021-12-17] MEDS: hydrOXYzine pamoate 25 MG CAP PO PRN (10:44)
[2021-12-17] MEDS: OLANZapine 7.5 MG TAB PO PRN (15:06)
--- NOTE | 2021-12-17 20:54 | P.MDCNMH ---
History of Present Illness H&P Date: 12/17/21 Chief Complaint: Psychosis Patient is a 56-year-old male with a known history of hypertension, GERD, hepatitis C not treated, chronic back pain, anxiety/depression, schizoaffective disorder currently everyday smoker and occasional heroin, marijuana use was brought to the hospital from the [facility] due to agitation, anxiety and psychotic symptoms. Patient has been at the [facility] for about 3 weeks. He has been hearing voices and hallucinating. Patient otherwise denied any complaints of chest pain or shortness of breath. Denied any fever or chills at home. No nausea vomiting abdominal pain or diarrhea. Denied any dysuria or hematuria. No headache or visual changes. Laboratory showed WBC 7.2 hemoglobin 12.9 platelets 170 Sodium 139 potassium 4.5 chloride 106 bicarb is 25 BUN 19 and creatinine 0.92 AST 274 and ALT 303 alk phos 51 Troponin x1 - ammonia 20 TSH 2.11 and albumin 4.0 lipase 46 UDS is positive for tricyclic antidepressants and marijuana. UA is negative for infection Coronavirus PCR not detected. Patient was seen by psychiatry and recommends inpatient psychiatric unit transfer. Currently patient is in the psychiatric unit. Review of Systems Constitutional: Patient denies any fever or chills . No generalized weakness or weight loss. Abdomen: Patient denied nausea vomiting and diarrhea and abdominal pain. Cardiovascular: Patient denies any chest pain or short of breath no palpitations. Respiratory: patient denied any cough or sputum production. No shortness of breath Neurologic: Patient denied any numbness or tingling headache. Musculoskeletal: Patient denies any complaints of joint swelling or deformity. Skin: Negative Psychiatric: anxious Endocrine: No heat or cold intolerance. No recent weight gain. Genitourinary: No dysuria or hematuria. All other 14 point ROS negative except the above Past Medical History Past Medical History: GERD/Reflux, Hypertension, Liver Disease, No Reported History Additional Past Medical History / Comment(s): Hepatitis C, DDD, back pain, bilateral carpel tunnel syndrome. He reports that he has heart disease that was found when he had kidney problems but he denies having a stress test or cardiac catheterization. History of Any Multi-Drug Resistant Organisms: None Reported MDRO Source:: unknown Past Surgical History: No Surgical Hx Reported, Unable to Obtain Additional Past Surgical History / Comment(s): Pt states he has had numerous "cysts" removed from where he injected IV drugs. Past Anesthesia/Blood Transfusion Reactions: No Reported Reaction, Unable to Obtain Additional Past Anesthesia/Blood Transfusion Reaction / Comment(s): Pt states he has never had surgery. Past Psychological History: Anxiety, Depression, Unable to Obtain Smoking Status: Current every day smoker Past Alcohol Use History: Occasional Past Drug Use History: Heroin, Marijuana, Methamphetamine - Past Family History Father Family Medical History: Coronary Artery Disease (CAD) Additional Family Medical History / Comment(s): Father is . Mother Family Medical History: Rheumatoid Arthritis (RA) Additional Family Medical History / Comment(s): Mother is . Medications and Allergies Home Medications Medication Instructions Recorded Confirmed Type busPIRone HCL 15 mg PO BID 30 Days tab 07/20/21 12/16/21 Rx QUEtiapine FUMARATE [SEROquel] 600 mg PO HS 09/27/21 12/16/21 History Benztropine Mesylate [Cogentin] 2 mg PO BID 12/15/21 12/16/21 History QUEtiapine FUMARATE [SEROquel] 200 mg PO DAILY 12/15/21 12/16/21 History Sublocade 300mg/1.5ml Xr Solution 300 mg SQ Q28D 12/15/21 12/16/21 History Venlafaxine HCl [Effexor XR] 150 mg PO DAILY 12/15/21 12/16/21 History buPROPion HCL [buPROPion HCL XL] 450 mg PO DAILY 12/15/21 12/16/21 History cloNIDine HCL [Catapres] 0.1 mg PO BID 12/15/21 12/16/21 History Haloperidol Decanoate [Haldol D] 150 mg IM Q21D 12/16/21 12/16/21 History Allergies Allergy/AdvReac Type Severity Reaction Status Date / Time No Known Allergies Allergy Verified 12/15/21 18:58 Physical Exam Vitals: Vital Signs Temp Pulse Resp BP Pulse Ox 12/17/21 20:49 79 108/55 12/17/21 11:17 98.8 F 82 16 95/54 98 12/16/21 21:13 80 17 109/66 96 PHYSICAL EXAMINATION: Patient is lying in the bed comfortably, no acute distress, awake alert and oriented.. HEENT: Normocephalic. Neck is supple. Pupils reactive. Nostrils clear. Oral cavity is moist. Neck reveals no JVD, carotid bruits, or thyromegaly. CHEST EXAMINATION: Trachea is central. Symmetrical expansion. Lung peña clear to auscultation and percussion. CARDIAC: Normal S1, S2 with no gallops. No murmurs ABDOMEN: Soft. Bowel sounds normal. No organomegaly. No abdominal bruits. Extremities: reveal no edema. No clubbing or cyanosis Neurologically awake, alert, oriented x2-3 with well-coordinated movements. No focal deficits noted Skin: No rash or skin lesions. Psychiatric: Cooperative. Anxious and agitated sometimes. Musculoskeletal: No joint swelling or deformity. Normal range of motion. Cranial Nerve Examination - Cranial Nerves Cranial Nerve I- Olfactory: Intact Cranial Nerve II- Optic: Intact Cranial Nerve III- Oculomotor: Intact Cranial Nerve IV- Trochlear: Intact Cranial Nerve V- Trigeminal: Intact Cranial Nerve - Abducens: Intact Cranial Nerve VII- Facial: Intact Cranial Nerve VIII- Auditory: Intact Cranial Nerve IX- Glossopharyngeal: Intact Cranial Nerve X- Vagus: Intact Cranial Nerve XI- Accessory: Intact Cranial Nerve XII- Hypoglossal: Intact Assessment and Plan Assessment: Acute psychosis on admission History of schizoaffective disorder, Depressive type Anxiety/depression Marijuana use and nicotine addiction History of heroine and methamphetamine use Hypertension GERD Elevated AST and ALT levels with history of hep C diagnosed 10 years ago. Not treated. Chronic back pain DVT prophylaxis with early ambulation Plan: Patient will be current on current psychiatric medications including Seroquel, Effexor and BuSpar. Patient was counseled extensively for alcohol cessation. Monitor for withdrawal symptoms. We will continue to follow and further recommendations based on clinical course.
[2021-12-18] MEDS: hydrOXYzine pamoate 25 MG CAP PO PRN (05:58)
[2021-12-18] MEDS: NICOTINE 14MG/24HR PATCH TRANSDERM SCH (08:09)
[2021-12-18] MEDS: PROPRANOLOL 20 MG TAB PO SCH ×2 (08:10→21:46)
[2021-12-18] MEDS: busPIRone HCl 5 MG TAB PO SCH ×3 (08:10→21:46)
[2021-12-18] MEDS: VENLAFAXINE HCL ER 75 MG CAP PO SCH (08:10)
[2021-12-18] MEDS: QUEtiapine 100 MG TAB PO SCH ×2 (08:10→21:46)
[2021-12-18] MEDS: IBUPROFEN 600 MG TAB PO PRN (08:12)
--- NOTE | 2021-12-18 13:35 | P.PN ---
Progress Note - Text Progress Note Date: 12/18/21 Interval History: Patient was seen in his room and was directable and agreeable to speak with board writer in the office. He is laying in the bed and is not wanting to come out. He is a known patient of schizoaffective disorder, anxiety and depression and substance abuse. At this time patient denies any suicidal or homical ideations, intent or plan. Patient denies any auditory, visual hallucinations and denies any paranoia or delusions. Patient denies any side effects from the medications and has been compliant with meds. Mental Status Exam: General Appearance: Patient appears to be stated age and is alert. Behavior: Patient is calmly seated without any agitated behavior. Speech: Patient's speech is fluent and nonpressured. Mood/Affect: Mood is improving mildly, affect is congruent and constricted. Suicidality/Homicidality: Patient denies having any suicidal or homicidal ideation intent or plan. Perceptions: Patient denies any visual hallucinations and denies any auditory hallucinations Though content/process: There is no evidence of any delusional thought content and thought process is linear and goal-directed. Memory and concentration: AOX3, grossly intact for the purposes of this session Judgment and insight: Improving mildly Assessment Patient continues to show symptoms of psychosis and shows lack of cooperation Plan: -Patient continues to meet criteria for inpatient psychiatric admission for symptom stabilization and safety. -Medications: Continue medication as before -When necessary Ativan and Haldol for agitation/aggression. -SW on board for discharge planning. Encouraged the patient to participate in milieu.
--- NOTE | 2021-12-18 15:10 | P.HP ---
Psychiatric H&P - . History & Physical: Allergies Allergy/AdvReac Type Severity Reaction Status Date / Time No Known Allergies Allergy Verified 12/15/21 18:58 Vital Signs Temp 98.8 F 12/17/21 11:17 Pulse 82 12/17/21 11:17 Resp 16 12/17/21 11:17 BP 95/54 12/17/21 11:17 Pulse Ox 98 12/17/21 11:17 Intake & Output 12/16/21 12/17/21 12/17/21 18:59 06:59 18:59 Weight 84.822 kg Laboratory Last Values Estimated Ave Glu mg/dL 108 12/16/21 14:07 Hemoglobin A1c 5.4 % (0.0-6.0) 12/16/21 14:07 12/17/21 17:26 Chief complaint: Agitation and threatening behavior HPI he was in the right thoughts are goal TOYDS upon consultation on the emergency. He was brought into the "he knew Jasiel state. The question of whether substance use wasn't made to affect. He has a hiistory of multiple substance use including cannabis and othe street drugs. He was seen as confused and restless with threatening behavior. He required one-to one observation. His functional level has declined significantly despite the antipsychotic medication He was transfered to the mental Health. unit. He was seen by Dr. Kayla Ruvalcaba upon consultation. Within 24 hours there have been minimal change in his overall behavior. and I would not repeat the details of his psychotic behavior. HE had a full medical workup and formal arrangement was made for him to be transfered to the unit. He was discussed at the team meeting today: the consensus was that acute cannabis psychosis : synthetic cannabis cannot be ruled with co-occuring schizophenia or schizo-affective disorder. He was highly agitated at times. and prepared to sign out . We would follow the [facility] legal procedure to harness support for him to be stabilized prior to return to community. He was followed at [facility] to identify another social support. Past Psychiatry history; substance use disorde; Cannabis. 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 No known metabolic syndrome Psychosocial History: as documented in the prevous history. He has been housed in the supportive housing program in [place]. He often questioned the legality of his admission. No consistent history of medication has worked. however, he complained that the long acting first generation antipsychotic has not helped him He continued to receive Rx for his mounting anxiety related to his psychosis. he was given lorazepam combined with haloperidol ; recently, olanzapine was given as well Mental status Examination He was seen briefly due to his unpredictable behavior. He was reluctant to leave his bed; later on, in the absence of his 1:1 supportive staff, he tolerated briefly my session. He was at times mumbling to himself with marginal self-care . He did not drift to any confusional state. He did not change in his level of consciousness. His affect was guarded and blunted at times. consistent with his paranoid ideas of reference. He did not share his paranoid delusions. Poverty of content of speech was evident: negative symptoms of schizophrenia. He denied any self-harm or hallucinations . He wanted desperately to leave but later on agreed with me for his brief stay. He was denying suicidal or homicidal ideation or behavior. Cogniition; Oriented. no evident working memory deficits. with marginal or negligent insight into his need for treatment Diagnosis 1. schizoaffective disorder, acute relapse precipated most likely by Cannabis 2. he needs period of stabilization before his return to the community 3. Peition and Guardianship issue to be fully negotiated before discharge 4. Reopen the issue of Depot : Invega or ability Maintenna and mood stabilzer; eg lamotrigine or Deparkote can benefit him 5. intensive Case management and Substance use counselling and program can reduce furture readmission
[2021-12-19] MEDS: VENLAFAXINE HCL ER 75 MG CAP PO SCH (08:21)
[2021-12-19] MEDS: NICOTINE 14MG/24HR PATCH TRANSDERM SCH (08:21)
[2021-12-19] MEDS: busPIRone HCl 5 MG TAB PO SCH ×3 (08:21→20:24)
[2021-12-19] MEDS: PROPRANOLOL 20 MG TAB PO SCH ×2 (08:21→20:24)
[2021-12-19] MEDS: QUEtiapine 100 MG TAB PO SCH ×2 (08:21→20:24)
--- NOTE | 2021-12-19 13:06 | P.PN ---
Progress Note - Text Progress Note Date: 12/19/21 Interval History: Patient was seen in his room and was agreeable to speak with senior underwriter. He is uncooperative and continues to show symptoms of psychosis.. Patient denies any side effects from the medications and has been compliant with meds. Mental Status Exam: General Appearance: Patient appears to be stated age is alert but staying in his room. Behavior: Patient is calm today without any agitated behavior. Speech: Patient's speech is non- fluent and nonpressured. Mood/Affect: Mood is improving mildly, affect is congruent and constricted. Suicidality/Homicidality: Patient denies having any suicidal or homicidal ideation intent or plan. Perceptions: Patient denies any visual hallucinations and denies any auditory hallucinations Memory and concentration: AOX3, grossly intact for the purposes of this session Judgment and insight: Improving mildly Assessment This patient continues to be psychotic and has no insight into his problems and has impaired judgment Plan: -Patient continues to meet criteria for inpatient psychiatric admission for symptom stabilization and safety. -Medications: Continue medications as before -When necessary Ativan and Haldol for agitation/aggression. -SW on board for discharge planning. Encouraged the patient to participate in milieu.
[2021-12-20] MEDS: busPIRone HCl 5 MG TAB PO SCH ×3 (08:14→21:11)
[2021-12-20] MEDS: NICOTINE 14MG/24HR PATCH TRANSDERM SCH (08:14)
[2021-12-20] MEDS: PROPRANOLOL 20 MG TAB PO SCH ×2 (08:15→21:11)
[2021-12-20] MEDS: VENLAFAXINE HCL ER 75 MG CAP PO SCH (08:15)
[2021-12-20] MEDS: QUEtiapine 100 MG TAB PO SCH ×2 (08:15→17:28)
[2021-12-20] MEDS: hydrOXYzine pamoate 25 MG CAP PO PRN (13:20)
--- NOTE | 2021-12-20 15:24 | P.PN ---
Progress Note - Text Progress Note Date: 12/20/21 Progress note He was seen today for review of his medication response. He complained of somewhat uneventful weekend: no prn agitation he did not require close observation. In contrast to his MSE on Monday, he was more organized at his session. He was more relaxed with no agitation. However, he was aware but not distressed over his adalid-oral movement with no denture defect or dental pathology. He was not restless and related that his problem had a relatively long history. I questioned whether he had tardive dyskinesia. He was on Inderal propanolol 20 mg po bid ; ;however, I wondered if he would be tapered from Cogentin which would oherwise worsned tardive dykinesia. He was not given trial of Ingreeza. His mood symptoms have improved on Effexor. 75 mg. I reviewed his Rx and commented he was withheld from Seorquel at 800 mg qhs. German dover complained of sleep disturances and requested to resume former dosage. I agreed for him to be on 100 mg po am 100mg qpm and 200 mg po qhs. in addition to Effexor 75 mg po diagnosis: schizoaffective disorder Plan : as noted in Rx. Reinforce Substance use education in the home: he may have abusing cannabis Discharge to home by weekend
[2021-12-20] MEDS: QUEtiapine 200 MG TAB PO SCH (21:11)
[2021-12-21] MEDS: busPIRone HCl 5 MG TAB PO SCH ×3 (09:49→21:09)
[2021-12-21] MEDS: QUEtiapine 100 MG TAB PO SCH ×2 (09:50→09:55)
[2021-12-21] MEDS: VENLAFAXINE HCL ER 75 MG CAP PO SCH (09:50)
[2021-12-21] MEDS: PROPRANOLOL 20 MG TAB PO SCH ×2 (09:50→21:08)
--- NOTE | 2021-12-21 10:23 | P.PN ---
Progress Note - Text Progress Note Date: 12/21/21 Interval History: Patient was seen resting in bed and was directable and agreeable to speak with business writer in the office. The patient reports that he is feeling much better. He reports that he was feeling suicidal due to his homelessness. He reports that he is not expressing any suicidal or homicidal ideation, intention, and/or plan at this time. He is currently not reporting any auditory or visual hallucinations. He is not reporting any paranoia or delusions. The patient has been in adherent with his medications and is not endorsing any significant side effects at this time. He does express concern about where he will be going after discharge however reports understanding that he may be discharged in the near future. He has not displayed any agitated behavior over the last 24 hours. Mental Status Exam: General Appearance: Patient appears to be stated age is alert, directable, and cooperative. Behavior: Eye contact is poor. Patient is lying in bed comfortably without any agitated behavior. Speech: Patient's speech is fluent and nonpressured. Mood/Affect: Mood is improving mildly, affect is congruent and constricted. Suicidality/Homicidality: Patient denies having any suicidal or homicidal ideation intent or plan. Perceptions: Patient denies any visual hallucinations and denies any auditory hallucinations Though content/process: There is no evidence of any delusional thought content and thought process is linear and goal-directed. Memory and concentration: AOX3, grossly intact for the purposes of this session Judgment and insight: Mildly improving Vital Signs Temp 96.9 F L 12/20/21 08:15 Pulse 94 12/20/21 21:10 Resp 18 12/20/21 08:15 BP 117/97 12/20/21 21:10 Pulse Ox 98 12/19/21 08:39 Assessment Schizoaffective disorder Cannabis use disorder Plan: -Patient continues to meet criteria for inpatient psychiatric admission for symptom stabilization and safety. Patient is currently under court order. -Medications: Propanolol 20 mg by mouth twice a day Seroquel 100 mg by mouth every 9 AM, every 5 PM, and 200 mg by mouth at bedtime. BuSpar 15 mg by mouth 3 times a day for anxiety -When necessary Zyprexa for agitation/aggression. -NRT - nicotine patch -SW on board for discharge planning. Encouraged the patient to participate in milieu.
--- NOTE | 2021-12-21 11:16 | P.DS ---
Providers Date of admission: 12/16/21 20:19 Expected date of discharge: 12/21/21 Attending physician: Jurgen Mcmanus MD Consults: 12/16/21 20:07 Consult Physician Routine Consulting Provider: Doron James Consult Reason/Comments: history and physical/medical management Do you want consulting provider notified?: Yes Primary care physician: Lorenzo Banks - Discharge Diagnosis(es) (1) Schizoaffective disorder, depressive type Current Visit: Yes Status: Acute Priority: High (2) Alcohol use disorder Current Visit: Yes Status: Chronic Priority: Medium (3) Cannabis use disorder, mild, abuse Current Visit: Yes Status: Chronic Priority: Medium (4) Cocaine use disorder Current Visit: Yes Status: Chronic Priority: Medium (5) Methamphetamine abuse Current Visit: Yes Status: Chronic Priority: Medium (6) Nicotine dependence Current Visit: Yes Status: Chronic Priority: Medium Hospital Course: Admission HPI: Initial psychiatric evaluation was completed by Dr. Gudino on 12/17/2021 who wrote: "Agitation and threatening behavior He was in the right thoughts are goal TOYDS upon consultation on the emergency. He was brought into the "he knew [place] state. The question of whether substance use wasn't made to affect. He has a hiistory of multiple substance use including cannabis and othe street drugs. He was seen as confused and restless with threatening behavior. He required one-to one observation. His functional level has declined significantly despite the antipsychotic medication He was transfered to the mental Health. unit. He was seen by Dr. Kayla Ruvalcaba upon consultation. Within 24 hours there have been minimal change in his overall behavior. and I would not repeat the details of his psychotic behavior. HE had a full medical workup and formal arrangement was made for him to be transfered to the unit. He was discussed at the team meeting today: the consensus was that acute cannabis psychosis : synthetic cannabis cannot be ruled with co-occuring schizophenia or schizo-affective disorder. He was highly agitated at times. and prepared to sign out . We would follow the petition legal procedure to harness support for him to be stabilized prior to return to community. He was followed at [facility] to identify another social support. Past Psychiatry history; substance use disorde; Cannabis. schizaffective disorder and schizophrenia He was found to be non-adherent to the medication" regimen Hospital course: Upon admission to the unit patient was initially displaying unpredictable behavior and appeared to be responding to internal stimuli. He was noted to be guarded in his affect displayed vaginal self-care. Patient was however directable and agreeable to commence treatment. Patient got along well with other patients on the unit and followed unit protocol. Patient was compliant with the medications and denied any side effects throughout hospital course. Patient was started on a regimen of Seroquel, BuSpar, and Effexor. The Seroquel was gradually titrated to a final dose 100 mg at 9 AM, 5 PM, and 200 mg at bedtime. The patient responded well to these medications. Although he remained primarily of sedative to himself in his room, the patient reported significant improvement in regards to his mood and medication tolerance. On the day of discharge, the patient is not reporting any suicidal or homicidal ideation, in tention, and/or plan. He is not reporting any auditory or visual hallucinations. He is denying any paranoia or other delusions. The patient is not reporting any access to firearms or other weapons. He reports that he plans to return back to the [facility]. He expresses no issues regarding any pain or any medical issues at this time. He denies any side effects of his medications and has been adherent. The patient was counseled at length on the importance of abstaining from all substances including alcohol and marijuana as marijuana is likely that the precipitant of his current admission. The patient acknowledges what is being told to him. The patient was counseled at length on his medications and the importance regular adherence and to follow-up with his outpatient appointments for mental health and for primary care. Prior to discharge, family meeting will be arranged by social media coordinator to answer any questions and ensure safety. Mental status exam: General Appearance: Patient appears to be stated age is alert, pleasant, and cooperative. Patient is in no acute distress and has fair hygiene and grooming. Behavior: Patient is calmly lying in bed without any agitated behavior. Eye contact appears to be appropriate. Speech: Patient's speech is fluent and nonpressured. Monotone. Nonspontaneous. Mood/Affect: Patient reports their mood is "much better", affect is constricted but otherwise appears to be euthymic. Suicidality/Homicidality: Patient denies having any suicidal or homicidal ideation intent or plan. Perceptions: Patient denies any auditory or visual hallucinations. Though content/process: There is no evidence of any delusional thought content and thought process is linear and goal-directed. Patient appears to be future oriented. Memory and concentration: AOX3, grossly intact for the purposes of this session. Can spell "WORLD" backwards correctly. Judgment and insight: Improved with guarded prognosis Vital Signs Temp 96.9 F L 12/20/21 08:15 Pulse 94 12/20/21 21:10 Resp 18 12/20/21 08:15 BP 117/97 12/20/21 21:10 Pulse Ox 98 12/19/21 08:39 Impression: Schizoaffective disorder, depressive type Alcohol use disorder, severe Cocaine use disorder Cannabis use disorder Methamphetamine abuse Nicotine dependence Plan: -Continue with discharge today as patient has improved and stabilized psychiatrically and is not currently an imminent threat to himself and/or others. Patient will remain at chronically elevated risk for harm to self and/or others due to his impulsivity and polysubstance abuse. -Continue medications: Propanolol 20 mg by mouth twice a day Seroquel 100 mg by mouth every 9 AM, every 12PM, and 200 mg by mouth at bedtime. BuSpar 15 mg by mouth 3 times a day for anxiety -Patient was counseled on the need for medication compliance and appropriate follow-up at mental health and also primary care for medical issues. Patient verbalized understanding and agreed. -Social work to arrange for and conduct family meeting to ensure safety upon discharge and answer any questions/concerns. Social work also to arrange for patients follow up appointments with [facility] for psychiatric care along with follow up with primary care provider. -Patient counseled on abstaining from recreational drugs and marijuana and alcohol. Was informed/educated on the adverse effects on their physical and mental health. Patient verbally agreed and understood. Patient was offered substance abuse treatment however declined at this time. -Patient was instructed to return to the hospital or seek immediate medical care if their psychiatric or medical symptoms do worsen or reoccur. -Psychoeducation and supportive therapy provided to patient. Risks and benefits of pharmacological treatment versus the risks and benefits of nontreatment weight and discussed. Informed consent discussion held. Common side effects of psychotropics discussed such as, but not limited to headache, GI disturbance, sexual dysfunction, movement disorders, sedation, and orthostatic hypotension. Life threatening and blackbox warnings of prescribed medications also discussed. Potential risks of operating a vehicle or heavy machinery discussed with patient at length. Advised on importance of compliance and a reliable and responsible manner. Patient advised to review FDA consumer labeling of all medications prior to taking. Patient verbalized understanding of potential risks, and agrees with current treatment plan. Patient advised to medically contact physician/emergency personnel if any acute changes in condition occur. -Please refer to his previous medical hospitalization for full set of labs prior to his admission to the psychiatric unit. Allergies Allergy/AdvReac Type Severity Reaction Status Date / Time No Known Allergies Allergy Verified 12/15/21 18:[address] Glu mg/dL 108 12/16/21 14:07 Hemoglobin A1c 5.4 % (0.0-6.0) 12/16/21 14:07 Patient Condition at Discharge: Stable Plan - Discharge Summary Discharge Rx Participant: No New Discharge Prescriptions: New Nicotine 14Mg/24Hr Patch [Habitrol] 1 patch TRANSDERM DAILY 30 Days patch QUEtiapine [SEROquel] 100 mg PO DAILY@0900 30 Days tab QUEtiapine [SEROquel] 200 mg PO HS 30 Days tab busPIRone HCl [Buspar] 15 mg PO TID 30 Days tab Venlafaxine HCl ER [Effexor XR] 75 mg PO DAILY 30 Days capsule Propranolol [Inderal] 20 mg PO BID 30 Days tab QUEtiapine [SEROquel] 100 mg PO DAILY@1200 30 Days tab Continue Sublocade 300mg/1.5ml Xr Solution 300 mg SQ Q28D Discontinued QUEtiapine FUMARATE [SEROquel] 600 mg PO HS buPROPion HCL [buPROPion HCL XL] 450 mg PO DAILY Benztropine Mesylate [Cogentin] 2 mg PO BID Haloperidol Decanoate [Haldol D] 150 mg IM Q21D busPIRone HCL 15 mg PO BID 30 Days tab QUEtiapine FUMARATE [SEROquel] 200 mg PO DAILY cloNIDine HCL [Catapres] 0.1 mg PO BID Venlafaxine HCl [Effexor XR] 150 mg PO DAILY Discharge Medication List Sublocade 300mg/1.5ml Xr Solution 300 mg SQ Q28D 12/15/21 [History] Nicotine 14Mg/24Hr Patch [Habitrol] 1 patch TRANSDERM DAILY 30 Days patch 12/21/21 [Rx] Propranolol [Inderal] 20 mg PO BID 30 Days tab 12/21/21 [Rx] QUEtiapine [SEROquel] 100 mg PO DAILY@0900 30 Days tab 12/21/21 [Rx] QUEtiapine [SEROquel] 100 mg PO DAILY@1200 30 Days tab 12/21/21 [Rx] QUEtiapine [SEROquel] 200 mg PO HS 30 Days tab 12/21/21 [Rx] Venlafaxine HCl ER [Effexor XR] 75 mg PO DAILY 30 Days capsule 12/21/21 [Rx] busPIRone HCl [Buspar] 15 mg PO TID 30 Days tab 12/21/21 [Rx] Activity/Diet/Wound Care/Special Instructions: Activity and diet as tolerated. Avoid the use of street drugs and alcohol. Take all medications as prescribed. When you are in need of refills on your medications please contact your medical provider and/or outpatient psychiatrist to have this done. Please go to scheduled outpatient appointment for aftercare treatment. If symptoms return or become worse, call the crisis line at and/or go to the nearest emergency room for evaluation Discharge Disposition: HOME SELF-CARE
[2021-12-21] MEDS: NICOTINE 14MG/24HR PATCH TRANSDERM SCH (12:27)
[2021-12-21] MEDS: QUEtiapine 200 MG TAB PO SCH (21:08)
[2021-12-22 08:46] VITALS: RESP 16
[2021-12-22] MEDS: NICOTINE 14MG/24HR PATCH TRANSDERM SCH (09:40)
[2021-12-22] MEDS: busPIRone HCl 5 MG TAB PO SCH ×3 (09:40→20:30)
[2021-12-22] MEDS: QUEtiapine 100 MG TAB PO SCH ×3 (09:41→17:41)
[2021-12-22] MEDS: PROPRANOLOL 20 MG TAB PO SCH ×2 (09:41→20:30)
[2021-12-22] MEDS: VENLAFAXINE HCL ER 75 MG CAP PO SCH (09:41)
--- NOTE | 2021-12-22 11:03 | P.PN ---
Progress Note - Text Progress Note Date: 12/22/21 Interval History: Patient was seen resting in bed and was directable and agreeable to speak with development writer in his room. Currently, the patient is not reporting any significant issues regarding his mood. She he is not reporting any suicidal or homicidal ideation, intention, and/or plan. He is not reporting any auditory or visual hallucinations. He reports no paranoia or other delusions. The patient acknowledges understanding that he is unable to go back to [facility] at this time. He is agreeable to staying in the hospital until appropriate placement is found as the patient does express concern about the snowstorm outside. He has been adherent with his medications and is not endorsing any significant side effects. Mental Status Exam: General Appearance: Patient appears to be stated age is alert, directable, and cooperative. Behavior: Patient is calmly seated without any agitated behavior. Speech: Patient's speech is fluent and nonpressured. Mood/Affect: Mood is improving mildly, affect is congruent and constricted. Suicidality/Homicidality: Patient denies having any suicidal or homicidal ideation intent or plan. Perceptions: Patient denies any visual hallucinations and denies any auditory hallucinations Though content/process: There is no evidence of any delusional thought content and thought process is linear and goal-directed. Memory and concentration: AOX3, grossly intact for the purposes of this session Judgment and insight: Improving mildly Vital Signs Temp 98 F 12/22/21 08:45 Pulse 71 12/22/21 08:45 Resp 16 12/22/21 08:45 BP 93/50 12/22/21 08:45 Pulse Ox 98 12/19/21 08:39 Assessment Schizoaffective disorder Cannabis use disorder Plan: -Patient continues to meet criteria for inpatient psychiatric admission for symptom stabilization and safety. Patient is currently under court order. -Medications: Propanolol 20 mg by mouth twice a day Seroquel 100 mg by mouth every 9 AM, every 5 PM, and 200 mg by mouth at bedtime. BuSpar 15 mg by mouth 3 times a day for anxiety -When necessary Zyprexa for agitation/aggression. -NRT - nicotine patch -SW on board for discharge planning. Encouraged the patient to participate in milieu.
[2021-12-22] MEDS: QUEtiapine 200 MG TAB PO SCH (20:30)
[2021-12-23] MEDS: NICOTINE 14MG/24HR PATCH TRANSDERM SCH (08:10)
[2021-12-23] MEDS: PROPRANOLOL 20 MG TAB PO SCH (08:11)
[2021-12-23] MEDS: VENLAFAXINE HCL ER 75 MG CAP PO SCH (08:11)
[2021-12-23] MEDS: busPIRone HCl 5 MG TAB PO SCH ×2 (08:11→15:17)
[2021-12-23] MEDS: QUEtiapine 100 MG TAB PO SCH ×2 (08:12→15:18)
--- NOTE | 2021-12-23 12:01 | P.PN ---
Progress Note - Text Progress Note Date: 12/23/21 Interval History: Patient was seen resting in bed and was directable and agreeable to speak with underwriter mortgage loan in his room. Currently, the patient is not reporting any significant symptoms of depression or anxiety at this time. He is currently denying any auditory or visual hallucinations. He reports no paranoia or other delusions. He denies any suicidal or homicidal ideation, intention, and/or plan. The patient has been adherent to his medication is not endorsing any significant side effects at this time. Mental Status Exam: General Appearance: Patient appears to be stated age is alert, directable, and cooperative. Behavior: Patient is calmly seated without any agitated behavior. Speech: Patient's speech is fluent and nonpressured. Mood/Affect: Mood is "doing fine," affect is congruent and constricted. Suicidality/Homicidality: Patient denies having any suicidal or homicidal ideation intent or plan. Perceptions: Patient denies any visual hallucinations and denies any auditory hallucinations Though content/process: There is no evidence of any delusional thought content and thought process is linear and goal-directed. Memory and concentration: AOX3, grossly intact for the purposes of this session Judgment and insight: Improving mildly Vital Signs Temp 97.7 F 12/23/21 08:15 Pulse 97 12/23/21 08:15 Resp 16 12/23/21 08:15 BP 93/50 12/22/21 08:45 Pulse Ox 100 12/23/21 08:15 Assessment Schizoaffective disorder Cannabis use disorder Plan: -Patient continues to meet criteria for inpatient psychiatric admission for symptom stabilization and safety. Patient is currently under court order. -Medications: Propanolol 20 mg by mouth twice a day Seroquel 100 mg by mouth every 9 AM, every 5 PM, and 200 mg by mouth at bedtime. BuSpar 15 mg by mouth 3 times a day for anxiety -When necessary Zyprexa for agitation/aggression. -NRT - nicotine patch -SW on board for discharge planning. Encouraged the patient to participate in milieu.
[2021-12-24] MEDS: PROPRANOLOL 20 MG TAB PO SCH ×3 (02:56→21:59)
[2021-12-24] MEDS: QUEtiapine 200 MG TAB PO SCH ×2 (02:56→21:59)
[2021-12-24] MEDS: busPIRone HCl 5 MG TAB PO SCH ×4 (02:57→21:59)
[2021-12-24] MEDS: NICOTINE 14MG/24HR PATCH TRANSDERM SCH (08:28)
[2021-12-24] MEDS: VENLAFAXINE HCL ER 75 MG CAP PO SCH (08:28)
[2021-12-24] MEDS: QUEtiapine 100 MG TAB PO SCH ×2 (08:28→16:03)
[2021-12-24] MEDS: hydrOXYzine pamoate 25 MG CAP PO PRN (13:06)
--- NOTE | 2021-12-24 13:13 | P.PN ---
Progress Note - Text Progress Note Date: 12/24/21 (.) Interval History: Patient was seen resting in bed and was directable and agreeable to speak with magazine writer in his room. No significant changes in regards to the patient's mood. He is denying any suicidal or homicidal ideation, intention,/or plan. He is not reporting any auditory or visual hallucinations. He is denying any paranoia or delusions. Patient has been adherent with his medications and is not endorsing any significant side effects at this time. The patient denies any issues regarding his general medical health as well. Mental Status Exam: General Appearance: Patient appears to be stated age is alert, directable, and cooperative. Behavior: Patient is calmly seated without any agitated behavior. Speech: Patient's speech is fluent and nonpressured. Mood/Affect: Mood is "doing fine," affect is congruent and constricted. Suicidality/Homicidality: Patient denies having any suicidal or homicidal ideation intent or plan. Perceptions: Patient denies any visual hallucinations and denies any auditory hallucinations Though content/process: There is no evidence of any delusional thought content and thought process is linear and goal-directed. Memory and concentration: AOX3, grossly intact for the purposes of this session Judgment and insight: Improving mildly Vital Signs Temp 97.3 F L 12/24/21 08:24 Pulse 115 H 12/24/21 08:24 Resp 16 12/24/21 08:24 BP 138/73 12/24/21 08:24 Pulse Ox 100 12/23/21 08:15 Assessment Schizoaffective disorder Cannabis use disorder Plan: -Patient continues to meet criteria for inpatient psychiatric admission for symptom stabilization and safety. Patient is currently under court order. -Medications: Propanolol 20 mg by mouth twice a day Seroquel 100 mg by mouth every 9 AM, every 5 PM, and 200 mg by mouth at bedtime. BuSpar 15 mg by mouth 3 times a day for anxiety -When necessary Zyprexa for agitation/aggression. -NRT - nicotine patch -SW on board for discharge planning. Encouraged the patient to participate in milieu.
[2021-12-25] MEDS: NICOTINE 14MG/24HR PATCH TRANSDERM SCH (08:03)
[2021-12-25] MEDS: VENLAFAXINE HCL ER 75 MG CAP PO SCH (08:04)
[2021-12-25] MEDS: QUEtiapine 100 MG TAB PO SCH ×2 (08:04→18:17)
[2021-12-25] MEDS: PROPRANOLOL 20 MG TAB PO SCH ×2 (08:04→21:13)
[2021-12-25] MEDS: busPIRone HCl 5 MG TAB PO SCH ×3 (08:04→21:13)
[2021-12-25] MEDS: hydrOXYzine pamoate 25 MG CAP PO PRN (13:09)
--- NOTE | 2021-12-25 16:01 | P.PN ---
Progress Note - Text Progress Note Date: 12/25/21 CHIEF COMPLAINT Patient was admitted for psychosis INTERVAL HISTORY The patient has been doing fair. He had a quiet day yesterday. He comes out on the unit and wanders about. He socializes a little with others. He chooses not to attend groups. He said he slept fairly well last night. Today he's been up and doing about the same. This noteworthy that the patient had been ready for discharge though he did not have housing, thus discharged is delayed and tell them can be arranged. When I asked him today about treatment issues she had no specific complaints or concerns. He states that the medications have been helping and he doesn't have any significant side effects or problems. MENTAL STATUS EXAM The patient sat with some restlessness. He gave fairly good eye contact. He answered questions with brief responses. He had some issues with slight speech impediment so at times it was difficult to understand some of what he was saying, though for the most part his thoughts were clear and coherent. He had a quiet affect. His mood was reserved. He did not appear to be distressed. There was no indication of thought disorder. He was oriented to circumstances and surroundings. ASSESSMENT/PLAN I will continue the current diagnosis and treatment plan. We will continue to make efforts to engage the patient in individual and group therapeutic activities. I will continue psychotropic medications the same, including Effexor 75 mg a day, Seroquel 100 mg twice a day 200 mg at bedtime, and BuSpar 15 mg 3 times a day. I reviewed medication issues including the usual process relating to antidepressant therapy, along with issues of indication of medications, potential side effects, and concerns relating to metabolic syndrome movement disorder issues relating to Seroquel. Housing is the primary issue for which discharge is pending. We will focus on stabilization and discharge planning.
[2021-12-25] MEDS: OLANZapine 7.5 MG TAB PO PRN (17:03)
[2021-12-25] MEDS: QUEtiapine 200 MG TAB PO SCH (21:13)
[2021-12-25] MEDS: IBUPROFEN 600 MG TAB PO PRN (21:34)
[2021-12-26] MEDS: QUEtiapine 100 MG TAB PO SCH ×2 (08:24→16:08)
[2021-12-26] MEDS: busPIRone HCl 5 MG TAB PO SCH ×3 (08:24→21:49)
[2021-12-26] MEDS: VENLAFAXINE HCL ER 75 MG CAP PO SCH (08:24)
[2021-12-26] MEDS: NICOTINE 14MG/24HR PATCH TRANSDERM SCH (08:24)
[2021-12-26] MEDS: PROPRANOLOL 20 MG TAB PO SCH ×2 (08:24→21:49)
[2021-12-26 08:27] VITALS: TEMP 97.1
[2021-12-26 10:01] VITALS: BP 98/51; PULSE 78
--- NOTE | 2021-12-26 14:20 | P.PN ---
Progress Note - Text Progress Note Date: 12/26/21 CHIEF COMPLAINT Patient was admitted for psychosis INTERVAL HISTORY The patient has been doing fair. For the most part he seems to be at his baseline. He spends a fair amount of time in his room. He will come out and do some walking, some of the time with another patient. He attended one group later in the day. He slept well last night. Today he has been much of the morning in his room. When I talked to him today he had no complaints or concerns. He has not had any issues with agitation, difficult behavior, apparent psychotic symptoms, or self-harm. It's noted that today nursing found some powdery substances on his sink and wondered if he had been doing something with his medications other than swallowing them directly. He did not give any information in that regard when asked. Today he voiced no complaints or concerns. He has not requested any when necessary medications today. He tolerates his psychotropic medications. MENTAL STATUS EXAM Patient gave fairly good eye contact. He was somewhat restless. Answered questions with brief responses. He doesn't say much. His thoughts were clear and coherent. His affect was somewhat blunted. He had a calm manner. His mood was reserved. He didn't appear to be distressed. He showed no indications of responding to internal stimuli. He gave no indication of thoughts of harm. He was oriented to circumstances and surroundings. ASSESSMENT/PLAN I will continue the current diagnosis and treatment plan. We will continue to make efforts to engage the patient in individual and group therapeutic activities. I will continue psychotropic medications the same, including Effexor 75 mg a day, Seroquel 100 mg twice a day 200 mg at bedtime, and BuSpar 15 mg 3 times a day. I briefly reviewed medication issues with the patient is a discussion limited as he was not too inclined to engage much in that conversation. Housing is the primary issue for which discharge is pending. We will focus on stabilization and discharge planning.
[2021-12-26] MEDS: QUEtiapine 200 MG TAB PO SCH (21:49)
[2021-12-27] MEDS: NICOTINE 14MG/24HR PATCH TRANSDERM SCH (07:53)
[2021-12-27] MEDS: busPIRone HCl 5 MG TAB PO SCH (07:55)
[2021-12-27] MEDS: PROPRANOLOL 20 MG TAB PO SCH (07:55)
[2021-12-27] MEDS: VENLAFAXINE HCL ER 75 MG CAP PO SCH (07:55)
[2021-12-27] MEDS: QUEtiapine 100 MG TAB PO SCH (07:55)
--- NOTE | 2021-12-27 11:57 | P.DS ---
Providers Date of admission: 12/16/21 20:19 Expected date of discharge: 12/27/21 Attending physician: Jurgen Mcmanus MD Consults: 12/16/21 20:07 Consult Physician Routine Consulting Provider: Doron James Consult Reason/Comments: history and physical/medical management Do you want consulting provider notified?: Yes Primary care physician: Lorenzo Banks - Discharge Diagnosis(es) (1) Schizoaffective disorder, depressive type Current Visit: Yes Status: Acute Priority: High (2) Alcohol use disorder Current Visit: Yes Status: Chronic Priority: Medium (3) Cannabis use disorder, mild, abuse Current Visit: Yes Status: Chronic Priority: Medium (4) Cocaine use disorder Current Visit: Yes Status: Chronic Priority: Medium (5) Methamphetamine abuse Current Visit: Yes Status: Chronic Priority: Medium (6) Nicotine dependence Current Visit: Yes Status: Chronic Priority: Medium Hospital Course: Admission HPI: Initial psychiatric evaluation was completed by Dr. Gudino on 12/17/2021 who wrote: "Agitation and threatening behavior He was in the right thoughts are goal TOYDS upon consultation on the emergency. He was brought into the "he knew [place]as[place] state. The question of whether substance use wasn't made to affect. He has a hiistory of multiple substance use including cannabis and othe street drugs. He was seen as confused and restless with threatening behavior. He required one-to one observation. His functional level has declined significantly despite the antipsychotic medication He was transfered to the mental Health. unit. He was seen by Dr. Ruvalcaba upon consultation. Within 24 hours there have been minimal change in his overall behavior. and I would not repeat the details of his psychotic behavior. HE had a full medical workup and formal arrangement was made for him to be transfered to the unit. He was discussed at the team meeting today: the consensus was that acute cannabis psychosis : synthetic cannabis cannot be ruled with co-occuring schizophenia or schizo-affective disorder. He was highly agitated at times. and prepared to sign out . We would follow the petition legal procedure to harness support for him to be stabilized prior to return to community. He was followed at [facility] to identify another social support. Past Psychiatry history; substance use disorde; Cannabis. schizaffective disorder and schizophrenia He was found to be non-adherent to the medication" regimen Hospital course: Upon admission to the unit patient was initially displaying unpredictable behavior and appeared to be responding to internal stimuli. He was noted to be guarded in his affect displayed vaginal self-care. Patient was however directable and agreeable to commence treatment. Patient got along well with other patients on the unit and followed unit protocol. Patient was compliant with the medications and denied any side effects throughout hospital course. Patient was started on a regimen of Seroquel, BuSpar, and Effexor. The Seroquel was gradually titrated to a final dose 100 mg at 9 AM, 5 PM, and 200 mg at bedtime. The patient responded well to these medications. Although he remained primarily of sedative to himself in his room, the patient reported significant improvement in regards to his mood and medication tolerance. Initially, the patient was discharged on 12/16/2021 however the treatment team was informed th at his previous housing of the [facility] would not take him back due to his level of acuity. Therefore, the patient's discharge was delayed while [facility] worked on providing him with other alternatives for housing due to his level of care and acuity that is required to be in a supervised setting. The patient was then placed at the [facility] on 12/27/2021. On the day of discharge, the patient is not reporting any suicidal or homicidal ideation, intention, and/or plan. He is not reporting any auditory or visual hallucinations. He is denying any paranoia or other delusions. The patient is not reporting any access to firearms or other weapons. He expresses no issues regarding any pain or any medical issues at this time. He denies any side effects of his medications and has been adherent. The patient was counseled at length on the importance of abstaining from all substances including alcohol and marijuana as marijuana is likely that the precipitant of his current admission. The patient acknowledges what is being told to him. The patient was counseled at length on his medications and the importance regular adherence and to follow-up with his outpatient appointments for mental health and for primary care. Prior to discharge, family meeting will be arranged by nephrology social worker to answer any questions and ensure safety. Mental status exam: General Appearance: Patient appears to be stated age is alert, pleasant, and cooperative. Patient is in no acute distress and has fair hygiene and grooming. Behavior: Patient is calmly lying in bed without any agitated behavior. Eye contact appears to be appropriate. Speech: Patient's speech is fluent and nonpressured. Monotone. Nonspontaneous. Mood/Affect: Patient reports their mood is "much better", affect is constricted but otherwise appears to be euthymic. Suicidality/Homicidality: Patient denies having any suicidal or homicidal ideation intent or plan. Perceptions: Patient denies any auditory or visual hallucinations. Though content/process: There is no evidence of any delusional thought content and thought process is linear and goal-directed. Patient appears to be future oriented. Memory and concentration: AOX3, grossly intact for the purposes of this session. Can spell "WORLD" backwards correctly. Judgment and insight: Improved with guarded prognosis Vital Signs Temp 97.1 F L 12/26/21 08:22 Pulse 78 12/26/21 09:50 Resp 16 12/26/21 08:22 BP 98/51 12/26/21 09:50 Pulse Ox 100 12/26/21 08:22 Intake & Output 12/26/21 12/27/21 12/27/21 18:59 06:59 18:59 Weight 83.8 kg Impression: Schizoaffective disorder, depressive type Alcohol use disorder, severe Cocaine use disorder Cannabis use disorder Methamphetamine abuse Nicotine dependence Plan: -Continue with discharge today as patient has improved and stabilized psychiatrically and is not currently an imminent threat to himself and/or others. Patient will remain at chronically elevated risk for harm to self and/or others due to his impulsivity and polysubstance abuse. -Continue medications: Propanolol 20 mg by mouth twice a day Seroquel 100 mg by mouth every 9 AM, every 12PM, and 200 mg by mouth at bedtime. BuSpar 15 mg by mouth 3 times a day for anxiety -Patient was counseled on the need for medication compliance and appropriate follow-up at mental health and also primary care for medical issues. Patient verbalized understanding and agreed. -Social work to arrange for and conduct family meeting to ensure safety upon discharge and answer any questions/concerns. Social work also to arrange for patients follow up appointments with [facility] for psychiatric care along with follow up with primary care provider. -Patient counseled on abstaining from recreational drugs and marijuana and alcohol. Was informed/educated on the adverse effects on their physical and mental health. Patient verbally agreed and understood. Patient was offered substance abuse treatment however declined at this time. -Patient was instructed to return to the hospital or seek immediate medical care if their psychiatric or medical symptoms do worsen or reoccur. -Psychoeducation and supportive therapy provided to patient. Risks and benefits of pharmacological treatment versus the risks and benefits of nontreatment weight and discussed. Informed consent discussion held. Common side effects of psychotropics discussed such as, but not limited to headache, GI disturbance, sexual dysfunction, movement disorders, sedation, and orthostatic hypotension. Life threatening and blackbox warnings of prescribed medications also discussed. Potential risks of operating a vehicle or heavy machinery discussed with patient at length. Advised on importance of compliance and a reliable and responsible manner. Patient advised to review FDA consumer labeling of all medications prior to taking. Patient verbalized understanding of potential risks, and agrees with current treatment plan. Patient advised to medically contact physician/emergency personnel if any acute changes in condition occur. -Please refer to his previous medical hospitalization for full set of labs prior to his admission to the psychiatric unit. Laboratory Results Estimated Ave Glu mg/dL 108 12/16/21 14:07 Hemoglobin A1c 5.4 % (0.0-6.0) 12/16/21 14:07 Allergies Allergy/AdvReac Type Severity Reaction Status Date / Time No Known Allergies Allergy Verified 12/15/21 18:58 Patient Condition at Discharge: Stable Plan - Discharge Summary Discharge Rx Participant: No New Discharge Prescriptions: New Nicotine 14Mg/24Hr Patch [Habitrol] 1 patch TRANSDERM DAILY 30 Days patch QUEtiapine [SEROquel] 100 mg PO DAILY@0900 30 Days tab QUEtiapine [SEROquel] 200 mg PO HS 30 Days tab busPIRone HCl [Buspar] 15 mg PO TID 30 Days tab Venlafaxine HCl ER [Effexor XR] 75 mg PO DAILY 30 Days capsule Propranolol [Inderal] 20 mg PO BID 30 Days tab QUEtiapine [SEROquel] 100 mg PO DAILY@1200 30 Days tab Continue Sublocade 300mg/1.5ml Xr Solution 300 mg SQ Q28D Discontinued QUEtiapine FUMARATE [SEROquel] 600 mg PO HS buPROPion HCL [buPROPion HCL XL] 450 mg PO DAILY Benztropine Mesylate [Cogentin] 2 mg PO BID Haloperidol Decanoate [Haldol D] 150 mg IM Q21D busPIRone HCL 15 mg PO BID 30 Days tab QUEtiapine FUMARATE [SEROquel] 200 mg PO DAILY cloNIDine HCL [Catapres] 0.1 mg PO BID Venlafaxine HCl [Effexor XR] 150 mg PO DAILY Discharge Medication List Sublocade 300mg/1.5ml Xr Solution 300 mg SQ Q28D 12/15/21 [History] Nicotine 14Mg/24Hr Patch [Habitrol] 1 patch TRANSDERM DAILY 30 Days patch 12/21/21 [Rx] Propranolol [Inderal] 20 mg PO BID 30 Days tab 12/21/21 [Rx] QUEtiapine [SEROquel] 100 mg PO DAILY@0900 30 Days tab 12/21/21 [Rx] QUEtiapine [SEROquel] 100 mg PO DAILY@1200 30 Days tab 12/21/21 [Rx] QUEtiapine [SEROquel] 200 mg PO HS 30 Days tab 12/21/21 [Rx] Venlafaxine HCl ER [Effexor XR] 75 mg PO DAILY 30 Days capsule 12/21/21 [Rx] busPIRone HCl [Buspar] 15 mg PO TID 30 Days tab 12/21/21 [Rx] Follow up Appointment(s)/Referral(s): [facility] [Outside] - 01/03/22 9:30 am (01-03-22 @ 9:[address] Edouard at [facility] Today at [place] with caseholder @ 1:15.) Jocelyn Ventura MD [Primary Care Provider] - 1 Week Patient Instructions/Handouts: Depression (DC), Cannabis Abuse (DC), Psychotic Disorder (DC) Activity/Diet/Wound Care/Special Instructions: Activity and diet as tolerated. Avoid the use of street drugs and alcohol. Take all medications as prescribed. When you are in need of refills on your medications please contact your medical provider and/or outpatient psychiatrist to have this done. Please go to scheduled outpatient appointment for aftercare treatment. If symptoms return or become worse, call the crisis line at and/or go to the nearest emergency room for evaluation Discharge Disposition: HOME SELF-CARE
== END 2021-12-27 13:04 | disposition home or self-care (01) | DRG 885 ==
LOC: 3MHU 20:19
PROVIDERS: ADMIT Psychiatry & Neurology Psychiatry; ATTEND Psychiatry & Neurology Psychiatry
DX: F25.1 Schizoaffective disorder, depressive type (principal); R45.851 Suicidal ideations; F10.10 Alcohol abuse, uncomplicated; F12.10 Cannabis abuse, uncomplicated; F14.10 Cocaine abuse, uncomplicated; F15.10 Other stimulant abuse, uncomplicated; F17.210 Nicotine dependence, cigarettes, uncomplicated; G89.29 Other chronic pain; M54.9 Dorsalgia, unspecified; F41.9 Anxiety disorder, unspecified; Z59.00 Homelessness unspecified; Z79.899 Other long term (current) drug therapy; K21.9 Gastro-esophageal reflux disease without esophagitis; K76.9 Liver disease, unspecified; I10 Essential (primary) hypertension; Z98.890 Other specified postprocedural states; Z82.61 Family history of arthritis; Z82.49 Family history of ischemic heart disease and other diseases of the circulatory system; F11.11 Opioid abuse, in remission
CPT/HCPCS: 80061; 83036

== ENCOUNTER 2022-01-24 15:44 | Inpatient (IN) | payer OTHER ==
[2022-01-24] MEDS ORDERED: LORazepam 2 MG/ML INJ IV STA ×6 (16:05→18:50)
[2022-01-24] MEDS ORDERED: SODIUM CHLORIDE 0.9% 1,000 ML IV STA (16:23)
[2022-01-24 16:24] LABS: Glucose,Whole Blood 76 mg/dL (75-99)
--- NOTE | 2022-01-24 16:27 | ED ---
General Adult HPI - General Chief complaint: Altered Mental Status Stated complaint: altered mental status Time Seen by Provider: 01/24/22 15:59 Source: EMS Mode of arrival: EMS Limitations: no limitations - History of Present Illness Initial comments: Dictation was produced using [employer] dictation software. please excuse any grammatical, word or spelling errors. Chief Complaint: 36-year-old male presents to the emergency department for overdose History of Present Illness: 36-year-old male who presents to emergency department for overdose. Patient is accompanied by his friend Livan. Thanh is a close family friend. He reports that he picked up patient at approximately 12:45 PM. Often does Livan and patient play video games for approximately one hour. Med reports that at approximately 1:30 PM he started to be altered with tremulousness. Livan knows that patient overdoses on a lot of medications. It is explained that patient will ingest whatever substance he can get his hands on. it is unclear what patient took and at what time. Patient is brought here by Livan. Chart review shows that patient has had overdoses in the past. He's been admitted to inpatient psych for polysubstance abuse, unpredictable behavior. He has history of schizoaffective disorder, meth use. Most recently was admitted in November. Thanh concerned that patient may have overdosed on [id number] substances. Unable to obtain second or 2 mental status PHYSICAL EXAM: General Impression: Alert, tremulous, diaphoretic HEENT: Normocephalic atraumatic, extra-ocular movements intact, pupils equal and reactive to light bilaterally, dry mucous membranes Cardiovascular: Tachycardic Chest: Tachypneic, bilateral breath sounds Abdomen: abdomen soft, non-tender, non-distended, no organomegaly Musculoskeletal: Pulses present and equal in all extremities, no peripheral edema Motor: Moves all extremity is grossly Neurological: 3 mm pupils, reactive to light, mild clonus, tremulousness, mild rigidity of all extremities Skin: Diaphoretic ED course: 36-year-old male presents to emergency Department with altered mental status. There is strong clinical concern of substance overdose. It's unclear what the substance was and time of ingestion. Vital signs upon arrival shows heart rate of 134, rest of vital signs within acceptable limits. Patient is diaphoretic and tachycardic. There is concern of sympathomimetic toxidrome. He is not hyper salivating or having excessive lacrimation. Unlikely to be cholinergic toxicity. EKG shows no prolonged QT or widened QRS. He is sinus tachycardic. Patient seen and evaluated trauma bay #3. Patient is responsive however. No clinical concern for grand mal seizure at this time given that patient is showing purposeful movements with verbal stimuli. Patient was given large amounts of benzodiazepines. At 426 patient had already received total of 12 mg of Ativan. Most of his tremulous is improved however still have a short burst of rigidity and shaking. Patient is reevaluated at 7:20 PM. Received several doses of Ativan still having tremulousness. Decision was made to intubate the patient using delayed sequence intubation. Patient tolerated medications well. EKG interpretation: Ventricular rate 136, sinus tachycardia, when necessary 153, QS 97, QTC 365.. No KS prolongation, no QTC prolongation, no ST or T-wave changes noted. EKG compared to Gen. 2021 showing no changes. Overall, this EKG is unremarkable Laboratory evaluation obtained. CBC, coag panel, metabolic panel is within acceptable limits. No anion gap acidosis. Osmolar gap is 9.4. No osmolar gap. There does appear to be signs of hepatitis with AST of 747 ALT 1252. Bilirubin levels normal. Urine is unremarkable. Normal venous blood gas. Urine drug screen resulted with positivity for TCAs, meth and marijuana. Serum alcohol is 62. Computed tomography scan of the brain is unremarkable. Post ET tube chest x-ray shows endotracheal tube 57 cm above the catherine. Arterial was contacted to advance in the tracheal tube 2 cm. Case discussed with Dr. Blair of [facility] was went except patient's care. Case discussed with hair machine operator, Dr. Garcia who is willing to accept patient care to the ICU. - Related Data Home Medications Medication Instructions Recorded Confirmed Sublocade 300mg/1.5ml Xr Solution 300 mg SQ Q28D 12/15/21 01/24/22 Docusate [Colace] 100 mg PO BID PRN 01/24/22 01/24/22 Nicotine 14Mg/24Hr Patch [Habitrol] 1 patch TRANSDERM DAILY PRN 01/24/22 01/24/22 Venlafaxine HCl [Effexor XR] 150 mg PO DAILY 01/24/22 01/24/22 buPROPion HCL [buPROPion HCL XL] 450 mg PO DAILY 01/24/22 01/24/22 busPIRone HCL 15 mg PO TID 01/24/22 01/24/22 polyethylene glycoL 3350 [Miralax] 17 gm PO DAILY PRN 01/24/22 01/24/22 Previous Rx's Medication Instructions Recorded Propranolol [Inderal] 20 mg PO BID 30 Days tab 12/21/21 QUEtiapine [SEROquel] 200 mg PO HS 30 Days tab 12/21/21 Allergies Allergy/AdvReac Type Severity Reaction Status Date / Time No Known Allergies Allergy Verified 01/24/22 17:48 Review of Systems ROS Statement: Those systems with pertinent positive or pertinent negative responses have been documented in the HPI. ROS Other: All systems not noted in ROS Statement are negative. Past Medical History Past Medical History: GERD/Reflux, Hypertension, Liver Disease, No Reported History Additional Past Medical History / Comment(s): Hepatitis C, DDD, back pain, bilateral carpel tunnel syndrome. He reports that he has heart disease that was found when he had kidney problems but he denies having a stress test or cardiac catheterization. History of Any Multi-Drug Resistant Organisms: None Reported MDRO Source:: unknown Past Surgical History: No Surgical Hx Reported, Unable to Obtain Additional Past Surgical History / Comment(s): Pt states he has had numerous "cysts" removed from where he injected IV drugs. Past Anesthesia/Blood Transfusion Reactions: No Reported Reaction, Unable to Obtain Additional Past Anesthesia/Blood Transfusion Reaction / Comment(s): Pt states he has never had surgery. Past Psychological History: Anxiety, Depression, Unable to Obtain Smoking Status: Current every day smoker Past Alcohol Use History: Occasional Past Drug Use History: Heroin, Marijuana, Methamphetamine - Past Family History Mother Family Medical History: Rheumatoid Arthritis (RA) Additional Family Medical History / Comment(s): Mother is . Father Family Medical History: Coronary Artery Disease (CAD) General Exam Limitations: no limitations Course Vital Signs 01/24/22 01/24/22 01/24/22 15:57 16:21 16:53 Temperature 99.2 F Pulse Rate 134 H 117 H 105 H Respiratory 14 18 16 Rate Blood Pressure 133/123 107/77 96/43 O2 Sat by Pulse 95 95 95 Oximetry 01/24/22 01/24/22 17:52 19:42 Temperature 98.4 F Pulse Rate 97 92 Respiratory 18 20 Rate Blood Pressure 106/50 114/68 O2 Sat by Pulse 96 98 Oximetry Procedures - Intubation Sedative: Propofol Mg Given: 100 Paralytic: Rocuronium Mg Given: 70 Laryngoscope: fiber optic video scope Size: 3 ET Tube Size: 8 Tube Secured Depth (cm): 24 Tube Secured Location: lips Tube Placement Confirmation: visualized tube passing through cords, equal breath sounds bilaterally, no breath sounds over epigastrium, confirmation by capnometry Patient Tolerated Procedure: well Intubation Complications: none Medical Decision Making - Lab Data Result diagrams: 01/24/22 16:24 01/24/22 16:24 Lab Results 01/24/22 01/24/22 01/24/22 Range/Units 16: 16:24 16:24 WBC 6.0 (3.8-10.6) k/uL RBC 4.54 (4.30-5.90) m/uL Hgb 13.3 (13.0-17.5) gm/dL Hct 39.5 (39.0-53.0) % MCV 87.0 (80.0-100.0) fL MCH 29.4 (25.0-35.0) pg MCHC 33.8 (31.0-37.0) g/dL RDW 13.3 (11.5-15.5) % Plt Count 198 (150-450) k/uL MPV 8.8 Neutrophils % 46 % Lymphocytes % 38 % Monocytes % 6 % Eosinophils % 6 % Basophils % 2 % Neutrophils # 2.7 (1.3-7.7) k/uL Lymphocytes # 2.3 (1.0-4.8) k/uL Monocytes # 0.3 (0-1.0) k/uL Eosinophils # 0.4 (0-0.7) k/uL Basophils # 0.1 (0-0.2) k/uL PT 11.2 (9.0-12.0) sec INR 1.0 (<1.2) APTT 24.7 (22.0-30.0) sec VBG pH (7.31-7.41) VBG pCO2 (37-51) mmHg VBG HCO3 (24-28) mmol/L Sodium (137-145) mmol/L Potassium (3.5-5.1) mmol/L Chloride (98-107) mmol/L Carbon Dioxide (22-30) mmol/L Anion Gap mmol/L BUN (9-20) mg/dL Creatinine (0.66-1.25) mg/dL Est GFR (CKD-EPI)AfAm (>60 ml/min/1.73 sqM) Est GFR (CKD-EPI)NonAf (>60 ml/min/1.73 sqM) Glucose (74-99) mg/dL POC Glucose (mg/dL) 76 (75-99) mg/dL POC Glu General Agent ID [facility] Osmolality (280-301) mosm/kg Plasma Lactic Acid Sohail (0.7-2.0) mmol/L Calcium (8.4-10.2) mg/dL Ionized Calcium Jessica (4.5-5.3) mg/dL Magnesium (1.6-2.3) mg/dL Total Bilirubin (0.2-1.3) mg/dL AST (17-59) U/L ALT (4-49) U/L Alkaline Phosphatase (38-126) U/L Creatine Kinase (55-170) U/L Troponin I (0.000-0.034) ng/mL Total Protein (6.3-8.2) g/dL Albumin (3.5-5.0) g/dL TSH (0.465-4.680) mIU/L Urine Color Urine Appearance (Clear) Urine pH (5.0-8.0) Ur Specific [place] (1.001-1.035) Urine Protein (Negative) Urine Glucose (UA) (Negative) Urine Ketones (Negative) Urine Blood (Negative) Urine Nitrite (Negative) Urine Bilirubin (Negative) Urine Urobilinogen (<2.0) mg/dL Ur Leukocyte Esterase (Negative) Salicylates mg/dL Urine Opiates Screen (NotDetected) Ur Oxycodone Screen (NotDetected) Urine Methadone Screen (NotDetected) Ur Propoxyphene Screen (NotDetected) Acetaminophen ug/mL Ur Barbiturates Screen (NotDetected) U Tricyclic Antidepress (NotDetected) Ur Phencyclidine Scrn (NotDetected) Ur Amphetamines Screen (NotDetected) U Methamphetamines Scrn (NotDetected) U Benzodiazepines Scrn (NotDetected) Urine Cocaine Screen (NotDetected) U Marijuana (THC) Screen (NotDetected) Serum Alcohol mg/dL 01/24/22 01/24/22 01/24/22 Range/Units 16:24 16:24 16:24 WBC (3.8-10.6) k/uL RBC (4.30-5.90) m/uL Hgb (13.0-17.5) gm/dL Hct (39.0-53.0) % MCV (80.0-100.0) fL MCH (25.0-35.0) pg MCHC (31.0-37.0) g/dL RDW (11.5-15.5) % Plt Count (150-450) k/uL MPV Neutrophils % % Lymphocytes % % Monocytes % % Eosinophils % % Basophils % % Neutrophils # (1.3-7.7) k/uL Lymphocytes # (1.0-4.8) k/uL Monocytes # (0-1.0) k/uL Eosinophils # (0-0.7) k/uL Basophils # (0-0.2) k/uL PT (9.0-12.0) sec INR (<1.2) APTT (22.0-30.0) sec VBG pH (7.31-7.41) VBG pCO2 (37-51) mmHg VBG HCO3 (24-28) mmol/L Sodium 138 (137-145) mmol/L Potassium 4.2 (3.5-5.1) mmol/L Chloride 107 (98-107) mmol/L Carbon Dioxide 23 (22-30) mmol/L Anion Gap 8 mmol/L BUN 23 H (9-20) mg/dL Creatinine 1.04 (0.66-1.25) mg/dL Est GFR (CKD-EPI)AfAm >90 (>60 ml/min/1.73 sqM) Est GFR (CKD-EPI)NonAf >90 (>60 ml/min/1.73 sqM) Glucose 83 (74-99) mg/dL POC Glucose (mg/dL) (75-99) mg/dL POC Glu General Agent ID Osmolality 315 H (280-301) mosm/kg Plasma Lactic Acid Sohail 1.7 (0.7-2.0) mmol/L Calcium 9.0 (8.4-10.2) mg/dL Ionized Calcium Jessica 5.2 (4.5-5.3) mg/dL Magnesium 1.8 (1.6-2.3) mg/dL Total Bilirubin 0.4 (0.2-1.3) mg/dL AST 747 H (17-59) U/L ALT 1252 H (4-49) U/L Alkaline Phosphatase 56 (38-126) U/L Creatine Kinase 108 (55-170) U/L Troponin I (0.000-0.034) ng/mL Total Protein 8.6 H (6.3-8.2) g/dL Albumin 4.1 (3.5-5.0) g/dL TSH 2.060 (0.465-4.680) mIU/L Urine Color Yellow Urine Appearance Clear (Clear) Urine pH 5.5 (5.0-8.0) Ur Specific [place] 1.020 (1.001-1.035) Urine Protein Negative (Negative) Urine Glucose (UA) Negative (Negative) Urine Ketones Negative (Negative) Urine Blood Negative (Negative) Urine Nitrite Negative (Negative) Urine Bilirubin Negative (Negative) Urine Urobilinogen 2.0 (<2.0) mg/dL Ur Leukocyte Esterase Negative (Negative) Salicylates <1.0 mg/dL Urine Opiates Screen Not Detected (NotDetected) Ur Oxycodone Screen Not Detected (NotDetected) Urine Methadone Screen Not Detected (NotDetected) Ur Propoxyphene Screen Not Detected (NotDetected) Acetaminophen <10.0 ug/mL Ur Barbiturates Screen Not Detected (NotDetected) U Tricyclic Antidepress Detected H (NotDetected) Ur Phencyclidine Scrn Not Detected (NotDetected) Ur Amphetamines Screen Not Detected (NotDetected) U Methamphetamines Scrn Detected H (NotDetected) U Benzodiazepines Scrn Not Detected (NotDetected) Urine Cocaine Screen Not Detected (NotDetected) U Marijuana (THC) Screen Detected H (NotDetected) Serum Alcohol mg/dL 01/24/22 01/24/22 01/24/22 Range/Units 16:24 16:24 18:02 WBC (3.8-10.6) k/uL RBC (4.30-5.90) m/uL Hgb (13.0-17.5) gm/dL Hct (39.0-53.0) % MCV (80.0-100.0) fL MCH (25.0-35.0) pg MCHC (31.0-37.0) g/dL RDW (11.5-15.5) % Plt Count (150-450) k/uL MPV Neutrophils % % Lymphocytes % % Monocytes % % Eosinophils % % Basophils % % Neutrophils # (1.3-7.7) k/uL Lymphocytes # (1.0-4.8) k/uL Monocytes # (0-1.0) k/uL Eosinophils # (0-0.7) k/uL Basophils # (0-0.2) k/uL PT (9.0-12.0) sec INR (<1.2) APTT (22.0-30.0) sec VBG pH 7.39 (7.31-7.41) VBG pCO2 37 (37-51) mmHg VBG HCO3 22 L (24-28) mmol/L Sodium (137-145) mmol/L Potassium (3.5-5.1) mmol/L Chloride (98-107) mmol/L Carbon Dioxide (22-30) mmol/L Anion Gap mmol/L BUN (9-20) mg/dL Creatinine (0.66-1.25) mg/dL Est GFR (CKD-EPI)AfAm (>60 ml/min/1.73 sqM) Est GFR (CKD-EPI)NonAf (>60 ml/min/1.73 sqM) Glucose (74-99) mg/dL POC Glucose (mg/dL) (75-99) mg/dL POC Glu General Agent ID Osmolality (280-301) mosm/kg Plasma Lactic Acid Sohail (0.7-2.0) mmol/L Calcium (8.4-10.2) mg/dL Ionized Calcium Jessica (4.5-5.3) mg/dL Magnesium (1.6-2.3) mg/dL Total Bilirubin (0.2-1.3) mg/dL AST (17-59) U/L ALT (4-49) U/L Alkaline Phosphatase (38-126) U/L Creatine Kinase (55-170) U/L Troponin I <0.012 (0.000-0.034) ng/mL Total Protein (6.3-8.2) g/dL Albumin (3.5-5.0) g/dL TSH (0.465-4.680) mIU/L Urine Color Urine Appearance (Clear) Urine pH (5.0-8.0) Ur Specific [place] (1.001-1.035) Urine Protein (Negative) Urine Glucose (UA) (Negative) Urine Ketones (Negative) Urine Blood (Negative) Urine Nitrite (Negative) Urine Bilirubin (Negative) Urine Urobilinogen (<2.0) mg/dL Ur Leukocyte Esterase (Negative) Salicylates mg/dL Urine Opiates Screen (NotDetected) Ur Oxycodone Screen (NotDetected) Urine Methadone Screen (NotDetected) Ur Propoxyphene Screen (NotDetected) Acetaminophen ug/mL Ur Barbiturates Screen (NotDetected) U Tricyclic Antidepress (NotDetected) Ur Phencyclidine Scrn (NotDetected) Ur Amphetamines Screen (NotDetected) U Methamphetamines Scrn (NotDetected) U Benzodiazepines Scrn (NotDetected) Urine Cocaine Screen (NotDetected) U Marijuana (THC) Screen (NotDetected) Serum Alcohol 62 mg/dL Critical Care Time Critical Care Time: Yes Total Critical Care Time: 33 Disposition Clinical Impression: Overdose Disposition: ADMITTED IP TO THIS [facility] Condition: Critical
[2022-01-24 16:42] LABS: Basophils # (A) 0.1 k/uL (0-0.2); Basophils % (A) 2 %; Eosinophils # (A) 0.4 k/uL (0-0.7); Eosinophils % (A) 6 %; HCT 39.5 % (39.0-53.0); HGB 13.3 gm/dL (13.0-17.5); Lymphocytes # (A) 2.3 k/uL (1.0-4.8); Lymphocytes % (A) 38 %; MCH 29.4 pg (25.0-35.0); MCHC 33.8 g/dL (31.0-37.0); Mean Platelet Volume 8.8; Monocytes # (A) 0.3 k/uL (0-1.0); Monocytes % (A) 6 %; Neutrophils # (A) 2.7 k/uL (1.3-7.7); Neutrophils % (A) 46 %; Platelet Count 198 k/uL (150-450); RBC 4.54 m/uL (4.30-5.90); RDW 13.3 % (11.5-15.5)
[2022-01-24 16:43] LABS: VBG PH 7.39 (7.31-7.41)
[2022-01-24 16:52] LABS: Partial Thromboplastin Time 24.7 sec (22.0-30.0); Prothrombin Time 11.2 sec (9.0-12.0)
--- NOTE | 2022-01-24 16:52 | XR ---
EXAMINATION TYPE: XR chest 1V portable DATE OF EXAM: 01/24/2022 4:47 PM COMPARISON: 07/09/2021 TECHNIQUE: XR chest 1V portable Frontal view of the chest. CLINICAL INDICATION:Male, 36 years old with history of overdose; FINDINGS: Lungs/Pleura: Low lung volumes are present. There is no evidence of pleural effusion, focal consolida tion, or pneumothorax. Pulmonary vascularity: Unremarkable. Heart/mediastinum: Cardiomediastinal silhouette is unremarkable. Musculoskeletal: No acute osseous pathology. IMPRESSION: No acute cardiopulmonary disease/process.
[2022-01-24] MEDS ORDERED: SODIUM CHLORIDE 0.9% 1,000 ML IV ONE (16:53)
[2022-01-24 16:56] LABS: Ionized Calcium 5.2 mg/dL (4.5-5.3)
[2022-01-24 17:16] LABS: Acetaminophen <10.0 ug/mL; African American GFR (CKD) >90 (>60 ml/min/1.73 sqM); Albumin 4.1 g/dL (3.5-5.0); Alkaline Phosphatase 56 U/L (38-126); Anion Gap 8 mmol/L; Blood Urea Nitrogen 23 mg/dL (9-20); Carbon Dioxide 23 mmol/L (22-30); Chloride 107 mmol/L (98-107); Creatine Kinase 108 U/L (55-170); Glucose 83 mg/dL (74-99); Magnesium 1.8 mg/dL (1.6-2.3); Non-African American GFR(CKD) >90 (>60 ml/min/1.73 sqM); Potassium 4.2 mmol/L (3.5-5.1); Salicylate <1.0 mg/dL; Sodium 138 mmol/L (137-145); Total Bilirubin 0.4 mg/dL (0.2-1.3); Total Protein 8.6 g/dL (6.3-8.2)
[2022-01-24 17:33] LABS: Appearance,Urine Clear (Clear); Bilirubin,Urine Negative (Negative); Blood,Urine Negative (Negative); Color,Urine Yellow; Glucose,Urine (UA) Negative (Negative); Ketones,Urine Negative (Negative); Leukocyte Esterase,Urine Negative (Negative); Nitrite,Urine Negative (Negative); PH, Urine 5.5 (5.0-8.0); Protein,Urine Negative (Negative)
[2022-01-24 17:35] LABS: ALT 1252 U/L (4-49); AST 747 U/L (17-59)
[2022-01-24 17:58] LABS: Amphetamine Screen,Urine Not Detected (NotDetected); Barbiturate Screen,Urine Not Detected (NotDetected); Benzodiazepines Screen,Urine Not Detected (NotDetected); Cocaine Screen,Urine Not Detected (NotDetected); Methadone Screen, Urine Not Detected (NotDetected); Opiate Screen,Urine Not Detected (NotDetected); Oxycodone Screen, Urine Not Detected (NotDetected); Phencyclidine Screen,Urine Not Detected (NotDetected); Tricyclic Antidepressant,Urine Detected (NotDetected); Urn Cannabinoid Scrn Detected (NotDetected)
[2022-01-24] MEDS ORDERED: ROCURONIUM 10 MG/ML (5 ML VIAL) IV ONE (19:05)
[2022-01-24] MEDS ORDERED: PROPOFOL 10 MG/ML 20 ML VIAL IV ONE (19:05)
[2022-01-24] MEDS ORDERED: NALOXONE 0.4 MG/ML 1 ML VIAL IV PRN (19:59)
[2022-01-24] MEDS ORDERED: ACETAMINOPHEN SUPPOSITORY 650 MG SUPP RECTAL PRN (19:59)
--- NOTE | 2022-01-24 20:20 | CT ---
EXAMINATION TYPE: CT brain wo con CT DLP: 1106.4 mGycm, Automated exposure control for dose reduction was used. DATE OF EXAM: 01/24/2022 7:39 PM COMPARISON: Prior CT Brain from 07/08/2021. CLINICAL INDICATION:Male, 36 years old with history of altered mental status, TECHNIQUE: Brain: Multiple axial CT images of the brain were obtained without IV contrast. FINDINGS: Brain: Extra-axial spaces: No abnormal extra-axial fluid collections. Ventricular system: Within normal limits Cerebral parenchyma: No acute intraparenchymal hemorrhage or mass effect. The chou-white junction is well differentiated. Cerebellum: Unremarkable. Mass effect: No evidence of midline shift. Intracranial vasculature: unremarkable Soft tissues: Normal. Calvarium/osseous structures: No depressed skull fracture. Paranasal sinuses and mastoid air cells: Moderate scattered paranasal sinus disease. Visualized orbits: Orbital contents are intact. IMPRESSION: 1. No acute intracranial process. 2. Moderate paranasal sinus disease most pronounced in the left maxillary sinus.
--- NOTE | 2022-01-24 20:26 | XR ---
EXAMINATION TYPE: XR chest 1V portable DATE OF EXAM: 01/24/2022 8:01 PM COMPARISON:Chest radiographs from 01/24/2022 TECHNIQUE: XR chest 1V portable Frontal view of the chest. CLINICAL INDICATION:Male, 36 years old with history of OG placement; FINDINGS: Lungs/Pleura: There is no evidence of pleural effusion, focal consolidation, or pneumothorax. Pulmonary vascularity: Unremarkable. Heart/mediastinum: Cardiomediastinal silhouette is unremarkable. Musculoskeletal: No acute osseous pathology. Lines/Tubes: Interval placement of Endotracheal tube with distal tip 57 cm above the catherine Interval placement of Nasogastric tube with its distal tip and side-port projecting under the diaphra gm. IMPRESSION: 1. Endotracheal and nasogastric tubes with tips in appropriate position. 2. No acute cardiopulmonary disease/process.
[2022-01-24 20:27] LABS: ABG Base Excess -4.4 mmol/L; ABG HCO3 22 mmol/L (21-25); ABG Oxygen Saturation 99.3 % (94-97); ABG PCO2 47 mmHg (35-45); ABG PH 7.29 (7.35-7.45); ABG PO2 >400 mmHg (83-108); ABG TCO2 24 mmol/L (19-24); Allen Test Performed? Yes
[2022-01-24] MEDS: SODIUM CHLORIDE 0.9% 1,000 ML IV SCH (20:40)
[2022-01-24] MEDS: MIDAZOLAM HCL 50 MG in SODIUM CHLORIDE 0.9% 40 ML IV SCH (21:04)
--- NOTE | 2022-01-24 22:45 | P.HPIM ---
History of Present Illness H&P Date: 01/24/22 Chief Complaint: Altered mental status overdose 36-year-old male with schizophrenia, hypertension, hepatitis C chronic Patient was brought in by a friend normally needs the patient having around. He decided to bring the patient to the hospital because he started to having some altered mental status and jerking movements. Patient is known to overdose on whatever substance he can get his hands on for which the friend grew concerned and decided to bring him to the hospital for evaluation. Patient friends premature that the patient has overdosed but he doesn't know which medicine substance he thinks it could be [id number]. Patient initially was agitated he was given high doses of Ativan with no much benefit eventually he was intubated and sedated. Patient at this time unable to provide any meaningful history Blood work showed normal CBC, elevated ACL T patient known to have chronic hepatitis C Alcohol level was 62 Urine drug screen was positive for meth, TCA, marijuana EKG showed no acute changes Brain CT no acute intracranial pathology Chest x-ray no acute pathology Review of Systems ROS unobtainable: due to endotracheal tube, due to mental status Past Medical History Past Medical History: No Reported History, Unable to Obtain, GERD/Reflux, Hypertension, Liver Disease Additional Past Medical History / Comment(s): Hepatitis C, DDD, back pain, bilateral carpel tunnel syndrome. He reports that he has heart disease that was found when he had kidney problems but he denies having a stress test or cardiac catheterization. History of Any Multi-Drug Resistant Organisms: None Reported MDRO Source:: unknown Past Surgical History: No Surgical Hx Reported, Unable to Obtain Additional Past Surgical History / Comment(s): Pt states he has had numerous "cysts" removed from where he injected IV drugs. Past Anesthesia/Blood Transfusion Reactions: No Reported Reaction, Unable to Obtain Additional Past Anesthesia/Blood Transfusion Reaction / Comment(s): Pt states he has never had surgery. Past Psychological History: Anxiety, Depression, Unable to Obtain Smoking Status: Current every day smoker Past Alcohol Use History: Occasional Past Drug Use History: Heroin, Marijuana, Methamphetamine - Past Family History Mother Family Medical History: Unable to Obtain, Rheumatoid Arthritis (RA) Additional Family Medical History / Comment(s): Mother is . Father Family Medical History: Coronary Artery Disease (CAD) Medications and Allergies Home Medications Medication Instructions Recorded Confirmed Type Sublocade 300mg/1.5ml Xr Solution 300 mg SQ Q28D 12/15/21 01/24/22 History Propranolol [Inderal] 20 mg PO BID 30 Days tab 12/21/21 01/24/22 Rx QUEtiapine [SEROquel] 200 mg PO HS 30 Days tab 12/21/21 01/24/22 Rx Docusate [Colace] 100 mg PO BID PRN 01/24/22 01/24/22 History Nicotine 14Mg/24Hr Patch [Habitrol] 1 patch TRANSDERM DAILY PRN 01/24/22 01/24/22 History Venlafaxine HCl [Effexor XR] 150 mg PO DAILY 01/24/22 01/24/22 History buPROPion HCL [buPROPion HCL XL] 450 mg PO DAILY 01/24/22 01/24/22 History busPIRone HCL 15 mg PO TID 01/24/22 01/24/22 History polyethylene glycoL 3350 [Miralax] 17 gm PO DAILY PRN 01/24/22 01/24/22 History Allergies Allergy/AdvReac Type Severity Reaction Status Date / Time No Known Allergies Allergy Verified 01/24/22 17:48 Physical Exam Vitals: Vital Signs Temp Pulse Resp BP Pulse Ox 01/24/22 21:20 85 21 110/63 96 01/24/22 21:10 86 22 109/62 96 01/24/22 21:00 86 20 110/64 96 01/24/22 20:50 86 20 110/64 96 01/24/22 20:40 89 20 113/69 96 01/24/22 20:30 89 22 142/99 98 01/24/22 20:20 96 27 H 142/99 99 01/24/22 20:10 89 13 124/76 98 01/24/22 20:00 93 15 128/78 99 01/24/22 19:42 92 20 114/68 98 01/24/22 19:30 120/73 01/24/22 19:20 120/73 01/24/22 19:10 120/73 01/24/22 19:00 94 L 01/24/22 17:52 98.4 F 97 18 106/50 96 01/24/22 16:53 105 H 16 96/43 95 01/24/22 16:21 117 H 18 107/77 95 01/24/22 15:57 99.2 F 134 H 14 133/123 95 Intake and Output 01/24/22 01/24/22 01/24/22 06:59 14:59 22:59 Intake Total 34.527 Balance 34.527 Intake: Intake, IV Titration 34.527 Amount propofoL 1,000 mg In 34.527 Empty Bag 1 bag @ Titrate IV .Q0M [facility] Rx#: [id number] Other: Weight 99.79 kg Constitutional: No acute distress, intubated and sedated patient is having some jerky movements bilateral upper and lower extremities Eyes: Anicteric sclerae, moist conjunctiva, Pupils equal round reactive to light ENMT: NC/AT Neck: Supple, no masses, or JVD No carotid bruits No thyromegaly Lungs: Clear to auscultation Clear to percussion Normal respiratory effort, no accessory muscle use Cardiovascular: Heart regular in rate and rhythm, No murmurs, gallops, or rubs No peripheral edema Abdominal: Soft Nontender, no guarding, rebound or rigidity Abdomen moving with respiration Normoactive bowel sounds No hepatomegaly, No splenomegaly No palpable mass No abdominal wall hernia noted Skin: Normal temperature, tone, texture, turgor No induration No subcutaneous nodules No rash, lesions No ulcers Extremities: No digital cyanosis No clubbing Pedal pulses intact and symmetrical Radial pulses intact and symmetrical No calf tenderness Psychiatric: Patient intubated and sedated Neuro unable to perform patient is intubated and sedated Lymphatics: no palpable cervical or supraclavicular , or inguinal lymph nodes Results CBC & Chem 7: 01/24/22 16:24 01/24/22 16:24 Labs: Abnormal Lab Results - Last 24 Hours (Table) 01/24/22 01/24/22 01/24/22 Range/Units 16:24 16:24 16:24 ABG pH (7.35-7.45) ABG pCO2 (35-45) mmHg ABG pO2 (83-108) mmHg ABG O2 Saturation (94-97) % VBG HCO3 22 L (24-28) mmol/L BUN 23 H (9-20) mg/dL Osmolality 315 H (280-301) mosm/kg AST 747 H (17-59) U/L ALT 1252 H (4-49) U/L Total Protein 8.6 H (6.3-8.2) g/dL U Tricyclic Antidepress Detected H (NotDetected) U Methamphetamines Scrn Detected H (NotDetected) U Marijuana (THC) Screen Detected H (NotDetected) 01/24/22 Range/Units 20:25 ABG pH 7.29 L (7.35-7.45) ABG pCO2 47 H (35-45) mmHg ABG pO2 >400 H (83-108) mmHg ABG O2 Saturation 99.3 H (94-97) % VBG HCO3 (24-28) mmol/L BUN (9-20) mg/dL Osmolality (280-301) mosm/kg AST (17-59) U/L ALT (4-49) U/L Total Protein (6.3-8.2) g/dL U Tricyclic Antidepress (NotDetected) U Methamphetamines Scrn (NotDetected) U Marijuana (THC) Screen (NotDetected) Assessment and Plan Assessment: Acute metabolic encephalopathy Possible drug overdose History of schizophrenia presented with acute agitation and bizarre behavior History of hepatitis C with chronic liver disease Hypertension Plan Patient was intubated and sedated due to severe agitation Vent dependent at this time ICU care Patient requiring high doses of sedation currently on propofol and Versed ICU consultation Monitor vital signs DVT prophylaxis with heparin subcu [address] of the brain showed no acute intracranial pathology Chest x-ray showed no acute pathology Urine drug screen positive for methamphetamine TCA and marijuana Psych eval Suicide precautions Anticipated length of stay more than 2 midnights Full code
[2022-01-24 23:22] LABS: Glucose,Whole Blood 75 mg/dL (75-99)
[2022-01-25] MEDS: HEPARIN SODIUM,PORCINE/PF 5,000 UNIT/0.5 ML SYRINGE SQ SCH ×3 (00:16→16:04)
[2022-01-25] MEDS: MIDAZOLAM HCL 50 MG in SODIUM CHLORIDE 0.9% 40 ML IV SCH (03:00)
[2022-01-25] MEDS: SODIUM CHLORIDE 0.9% 1,000 ML IV SCH ×3 (04:36→19:50)
[2022-01-25 06:18] LABS: ABG Base Excess -0.9 mmol/L; ABG HCO3 25 mmol/L (21-25); ABG Oxygen Saturation 98.7 % (94-97); ABG PCO2 49 mmHg (35-45); ABG PH 7.32 (7.35-7.45); ABG PO2 113 mmHg (83-108); ABG TCO2 27 mmol/L (19-24); Allen Test Performed? Yes
[2022-01-25 07:38] LABS: Basophils % (A) 1 %; Eosinophils # (A) 0.2 k/uL (0-0.7); Eosinophils % (A) 6 %; HCT 36.2 % (39.0-53.0); HGB 11.9 gm/dL (13.0-17.5); Lymphocytes # (A) 1.3 k/uL (1.0-4.8); Lymphocytes % (A) 30 %; MCH 29.7 pg (25.0-35.0); MCHC 32.8 g/dL (31.0-37.0); MCV 90.6 fL (80.0-100.0); Mean Platelet Volume 8.9; Monocytes # (A) 0.4 k/uL (0-1.0); Monocytes % (A) 8 %; Neutrophils # (A) 2.2 k/uL (1.3-7.7); Neutrophils % (A) 51 %; Platelet Count 142 k/uL (150-450); RBC 3.99 m/uL (4.30-5.90); RDW 13.9 % (11.5-15.5); WBC 4.3 k/uL (3.8-10.6)
[2022-01-25 07:52] LABS: African American GFR (CKD) >90 (>60 ml/min/1.73 sqM); Anion Gap 1 mmol/L; Blood Urea Nitrogen 14 mg/dL (9-20); Carbon Dioxide 25 mmol/L (22-30); Chloride 114 mmol/L (98-107); Glucose 69 mg/dL (74-99); Magnesium 1.9 mg/dL (1.6-2.3); Non-African American GFR(CKD) >90 (>60 ml/min/1.73 sqM); Potassium 3.6 mmol/L (3.5-5.1); Sodium 140 mmol/L (137-145)
--- NOTE | 2022-01-25 08:31 | XR ---
EXAMINATION TYPE: XR chest 1V DATE OF EXAM: 01/25/2022 COMPARISON: Chest x-ray 01/24/2022 HISTORY: Intubated TECHNIQUE: Single frontal view of the chest is obtained. FINDINGS: Endotracheal tube, NG tube are overlying appropriate positions. No evident pneumothorax or pleural effusion. Cardiac mediastinal silhouette likely stable accounting for differences in techniq ue. Patchy basilar density is noted, the exam is expiratory. IMPRESSION: Expiratory rotated exam.
[2022-01-25] MEDS ORDERED: CHLORHEXIDINE GLUCONATE 15 ML CUP MUCOUS MEM SCH (09:00)
--- NOTE | 2022-01-25 09:39 | P.CNPUL ---
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 We had followed him at that time. He was recently discharged on 12/27/2021 after being admitted from the [facility] with aggressive anxious and psychotic behaviors. Yesterday 01/24/2022 he was brought in by a friend after the patient was having altered mental status and tremors. He had been visiting with a friend playing video games at the time. His friend was unsure what the patient may have taken. His urine drug screen here was positive for tricyclic antidepressants, methamphetamines, marijuana. He was unable to protect his airway and subsequent was intubated and placed on mechanical ventilator and admitted to the ICU. He is seen today in consultation for the same. Current ventilator settings include assist control mode with a rate of 20, tidal volume 400, FiO2 30% and a PEEP of 5. Morning blood gases revealed a PaO2 of 113, pCO2 49, pH 7.32. He has normal saline running at 120 ML's per hour. He is on a Versed drip at 5 mg per hour. Propofol at 45 mcg/kg/m. Subcutaneous heparin for DVT prophylaxis. White count 4.3. Hemoglobin 11.2. Platelets 142. Sodium 140. Potassium 3.6. Chloride 114. Bicarb 25. BUN 14. Creatinine 0.58. His x-ray reveals good placement of the endotracheal tube. Placement of the nasogastric tube. No evidence of pneumothorax or pleural effusion. Patchy basilar basilar density noted. Computed tomography scan of the brain reveals no acute intracranial process. He's been afebrile. Maintaining sinus rhythm with a controlled ventricular rate . Blood pressure stable. Review of Systems ROS unobtainable: due to endotracheal tube Past Medical History Past Medical History: No Reported History, Unable to Obtain, GERD/Reflux, Hypertension, Liver Disease Additional Past Medical History / Comment(s): Hepatitis C, DDD, back pain, bilateral carpel tunnel syndrome. He reports that he has heart disease that was found when he had kidney problems but he denies having a stress test or cardiac catheterization. History of Any Multi-Drug Resistant Organisms: None Reported MDRO Source:: unknown Past Surgical History: No Surgical Hx Reported, Unable to Obtain Additional Past Surgical History / Comment(s): Pt states he has had numerous "cysts" removed from where he injected IV drugs. Past Anesthesia/Blood Transfusion Reactions: No Reported Reaction, Unable to Obtain Additional Past Anesthesia/Blood Transfusion Reaction / Comment(s): Pt states he has never had surgery. Past Psychological History: Anxiety, Depression, Unable to Obtain Additional Psychological History / Comment(s): Pt currently at [employer]. He denies suicidal thoughts/plans recently. He has had multiple [facility] mental health admission. Smoking Status: Current every day smoker Past Alcohol Use History: Occasional Additional Past Alcohol Use History / Comment(s): Pt started smoking in 1994 and smokes 1ppd Past Drug Use History: Heroin, Marijuana, Methamphetamine Additional Drug Use History / Comment(s): Pt states he has used drugs in the p ast but none recently d/t no money. 12/15/21 UDS +marijuana - Past Family History Mother Family Medical History: Unable to Obtain, Rheumatoid Arthritis (RA) Additional Family Medical History / Comment(s): Mother is . Father Family Medical History: Coronary Artery Disease (CAD) Medications and Allergies Home Medications Medication Instructions Recorded Confirmed Type Sublocade 300mg/1.5ml Xr Solution 300 mg SQ Q28D 12/15/21 01/24/22 History Propranolol [Inderal] 20 mg PO BID 30 Days tab 12/21/21 01/24/22 Rx QUEtiapine [SEROquel] 200 mg PO HS 30 Days tab 12/21/21 01/24/22 Rx Docusate [Colace] 100 mg PO BID PRN 01/24/22 01/24/22 History Nicotine 14Mg/24Hr Patch [Habitrol] 1 patch TRANSDERM DAILY PRN 01/24/2206/10 History Venlafaxine HCl [Effexor XR] 150 mg PO DAILY 01/24/22 01/24/22 History buPROPion HCL [buPROPion HCL XL] 450 mg PO DAILY 01/24/22 01/24/22 History busPIRone HCL 15 mg PO TID 01/24/22 01/24/22 History polyethylene glycoL 3350 [Miralax] 17 gm PO DAILY PRN 01/24/22 01/24/22 History Allergies Allergy/AdvReac Type Severity Reaction Status Date / Time No Known Allergies Allergy Verified 01/24/22 17:48 Physical Exam Vitals: Vital Signs Temp Pulse Resp BP Pulse Ox 01/25/22 08:00 98.4 F 77 20 107/67 95 01/25/22 07:00 70 20 106/65 95 01/25/22 06:00 71 20 104/62 96 01/25/22 05:00 69 20 107/65 96 01/25/22 04:00 98 F 72 20 106/64 96 01/25/22 03:00 70 20 106/68 96 01/25/22 02:00 77 20 112/70 96 01/25/22 01:00 76 20 115/73 97 01/25/22 00:00 98.0 F 75 20 113/72 96 01/24/22 23:50 75 20 112/72 97 01/24/22 23:20 98.3 F 75 20 96 01/24/22 22:50 77 106/69 97 01/24/22 22:40 81 111/65 97 01/24/22 22:30 80 108/66 97 01/24/22 22:20 80 108/66 97 01/24/22 22:10 80 112/66 97 01/24/22 22:00 82 111/67 97 01/24/22 21:50 83 20 111/67 96 01/24/22 21:40 84 20 111/69 96 01/24/22 21:30 84 26 H 110/63 96 01/24/22 21:20 85 21 110/63 96 01/24/22 21:10 86 22 109/62 96 01/24/22 21:00 86 20 110/64 96 01/24/22 20:50 86 20 110/64 96 01/24/22 20:40 89 20 113/69 96 01/24/22 20:30 89 22 142/99 98 01/24/22 20:20 96 27 H 142/99 99 01/24/22 20:10 89 13 124/76 98 01/24/22 20:00 93 15 128/78 99 01/24/22 19:42 92 20 114/68 98 01/24/22 19:30 120/73 03/07/22 19:20 120/73 01/24/22 19:10 120/73 01/24/22 19:00 94 L 01/24/22 17:52 98.4 F 97 18 106/50 96 01/24/22 16:53 105 H 16 96/43 95 01/24/22 16:21 117 H 18 107/77 95 01/24/22 15:57 99.2 F 134 H 14 133/123 95 Intake and Output 01/24/22 01/25/22 01/25/22 22:59 06:59 14:59 Intake Total 34.527 1223.490 272.2 Output Total 1580 375 Balance 34.527 -356.510 -102.8 Intake: IV 960 240 Sodium Chloride 0.9% 1, 960 240 000 ml @ 120 mls/hr IV . Q8H20M [facility] Rx#:[id number] Intake, IV Titration 34.527 263.490 32.2 Amount Midazolam HCl 50 mg In 28.934 32.2 Sodium Chloride 0.9% 40 ml @ 1 MG/HR 1 mls/hr IV .Q24H [facility] Rx#:[id number] propofoL 1,000 mg In 34.527 234.556 Empty Bag 1 bag @ Titrate IV .Q0M [facility] Rx#: [id number] Output: Gastric Drainage 150 Urine 1580 225 Other: Voiding Method Indwelling Catheter Indwelling Catheter Weight 99.79 kg 91 kg GENERAL EXAM: Intubated, sedated 36-year-old male patient,, comfortable in no apparent distress. HEAD: Normocephalic. EYES: Sluggish reaction of pupils, equal size. NOSE: Clear with pink turbinates. THROAT: Oralgastric and endotracheal tube secured in place. No erythema or exudates. NECK: No masses, no JVD. CHEST: No chest wall deformity. LUNGS: Equal air entry with no crackles, wheeze, rhonchi or dullness. CVS: S1 and S2 normal with no audible murmur, regular rhythm. ABDOMEN: No hepatosplenomegaly, normal bowel sounds, no guarding or rigidity. SPINE: No scoliosis or deformity SKIN: No rashes CENTRAL NERVOUS SYSTEM: Sedated. Tone is normal in all 4 extremities. EXTREMITIES: There is no peripheral edema. No clubbing, no cyanosis. Peripheral pulses are intact. Results - Laboratory Findings CBC and BMP: 01/25/22 07:24 01/25/22 07:24 ABG ABG pH 7.32 (7.35-7.45) L 01/25/22 06:15 ABG pCO2 49 mmHg (35-45) H 01/25/22 06:15 ABG pO2 113 mmHg (83-108) H 01/25/22 06:15 ABG O2 Saturation 98.7 % (94-97) H 01/25/22 06:15 PT/INR, D-dimer PT 11.2 sec (9.0-12.0) 01/24/22 16:24 INR 1.0 (<1.2) 01/24/22 16:24 Abnormal lab findings: Abnormal Labs 01/24/22 01/24/22 01/24/22 16:24 16:24 16:24 RBC Hgb Hct Plt Count ABG pH ABG pCO2 ABG pO2 ABG Total CO2 ABG O2 Saturation VBG HCO3 22 L Chloride BUN 23 H Creatinine Glucose Osmolality 315 H Calcium AST 747 H ALT 1252 H Total Protein 8.6 H U Tricyclic Antidepress Detected H U Methamphetamines Scrn Detected H U Marijuana (THC) Screen Detected H 01/24/22 01/25/22 01/25/22 20:25 06:15 07:24 RBC 3.99 L Hgb 11.9 L Hct 36.2 L Plt Count 142 L ABG pH 7.29 L 7.32 L ABG pCO2 47 H 49 H ABG pO2 >400 H 113 H ABG Total CO2 27 H ABG O2 Saturation 99.3 H 98.7 H VBG HCO3 Chloride BUN Creatinine Glucose Osmolality Calcium AST ALT Total Protein U Tricyclic Antidepress U Methamphetamines Scrn U Marijuana (THC) Screen 01/25/22 07:24 RBC Hgb Hct Plt Count ABG pH ABG pCO2 ABG pO2 ABG Total CO2 ABG O2 Saturation VBG HCO3 Chloride 114 H BUN Creatinine 0.58 L Glucose 69 L Osmolality Calcium 8.0 L AST ALT Total Protein U Tricyclic Antidepress U Methamphetamines Scrn U Marijuana (THC) Screen - Diagnostic Findings Chest x-ray: image reviewed Assessment and Plan Assessment: 1 Acute hypoxemic respiratory failure secondary to acute drug overdose including tricyclic antidepressants, methamphetamines, marijuana. Serum alcohol 62. 2 History of polysubstance abuse and previous overdoses requiring intubation mechanical ventilatory support. 3 Recent admission for aggressive, agitated and threatening behavior 4 History of schizoaffective disorder 5 History of alcohol abuse 6 History of cocaine use 7 Chronic and ongoing tobacco dependence a History of medication noncompliance Plan: The patient was seen and evaluated Chest x-ray, ABGs and labs reviewed Will plan for a daily interruption of sedation and obtain weaning parameters If appropriate we'll plan for extubation later today He is to remain in seizure precautions He is to remain in suicide precautions Psychiatry has been consulted If unable to extubate we will plan for enteral feedings Follow-up chest x-ray and labs in a.m. We will continue to follow and make further recommendations based on his clinical status I have personally seen and examined the patient, performed the documentation and the assessment and plan as written. Number of minutes spent on the visit: 20. Time with Patient: Greater than 30
[2022-01-25 11:24] LABS: Glucose,Whole Blood 75 mg/dL (75-99)
[2022-01-25] MEDS ORDERED: Potassium Replacement Protocol 1 EACH MISC MISCELLANE PRN (12:05)
[2022-01-25] MEDS: POTASSIUM CHLORIDE 10 MEQ in WATER FOR INJECTION 1 100ML.BAG IVPB SCH ×2 (12:49→14:00)
--- NOTE | 2022-01-25 14:28 | P.CN ---
Psychiatric Consult - . Consult date: 01/25/22 Consult:: 01/25/22 13:41 IDENTIFYING DATA: This patient is a 35-year-old male with history of polysubstance abuse who is currently homeless HISTORY OF PRESENT ILLNESS: The patient presented to the hospital initially on 01/24. In the after a drug overdose. Patient apparently was accompanied by his friend in the ER. Friend had stated that patient became suddenly altered and tremulous while playing videogames and had admitted to overdosing. It was not established what apparently patient had overdosed on and quantity. Patient was intubated and transferred to the ICU. Patient was given 12 mg of Ativan for sedation. He had a blood alcohol level of 62. His urine drug screen was positive for TCAs methamphetamine and THC. Patient has had a psychiatric history significant for schizoaffective disorder and polysubstance abuse and has been admitted psychiatrically several times in the past. Patient was seen at the bedside and had a one-to-one sitter. He appeared to be confused and had difficult time responding to video games storywriter. He mumbled at times and responded inappropriately. He appeared to be shaking in his hands and reaching for his nose and nasal cannula. He also requested to go to the bathroom and did not realize that he had a catheter. He did appear to be anxious. He knew his name and knew that he was in [place] but did not know today's date or the circumstances twice in the hospital. When asked what happened at home patient gave a garbled answer and was tangential. He appears to have very poor insight and judgment. Poor hygiene and grooming. At this time patient denies any homical ideations, intent or plan. Patient denies any visual hallucinations. Patients has a history of using drugs recreationally including methamphetamine, cocaine, marijuana. PAST PSYCHIATRIC HISTORY: Patient has a a history of polysubstance abuse and schizoaffective disorder. Patient has been on several different medications in the past including paliperidone and Seroquel along with Zoloft, BuSpar and Effexor. Patient has had several different psychiatric hospitalizations and also has been court ordered in the past. Patient at this time is currently following up at [facility] [address] and unsure whether patient has been getting his long-acting injection doses. Patient denies any history of suicide attempts in the past. PAST MEDICAL HISTORY: Hepatitis C. ALLERGIES: as per EMR. CHEMICAL DEPENDENCY HISTORY: as per HPI. FAMILY PSYCHIATRIC/SUBSTANCE USE HISTORY: Unable to obtain SOCIAL HISTORY: Unable to obtain. Patient is homeless however. MENTAL STATUS EXAM: General Appearance: Patient appears to be discheveled in appearance, older than stated age is lethargic, confused. Patient appears to have poor hygiene and grooming. unshaven Behavior: Patient is laying in bed, shaking and confused Speech: Patient's speech is difficult to comprehend. garbled. Mood/Affect: Patient reports their mood is anxious, affect is congruent Suicidality/Homicidality: Patient denies having any homicidal ideation intent or plan. Denies any suicidal ideations intent or plan Perceptions: Patient denies any visual hallucinations or any auditory hallucinations. Though content/process: Not endorsing any delusions. Minimizing his drug use. Poor insight. Memory and concentration: AOX2, confused, poor attention span. cannot spell "WORLD" backwards Judgment and insight: Chronically poor IMPRESSIONS: Delirium likely multiple etiologies including withdrawal from substances, medications including benzodiazepines and anesthetic medications. Schizoaffective disorder, depressive type drug overdose Alcohol use disorder Cannabis use disorders Methamphetamine abuse Nicotine dependence PLAN: -At this time will continue following patient as he is being treated medically for withdrawals and overdose to see if patient requires inpt psych hospitalization. -Delirium precautions recommended with patient including - avoiding use of narcotics and [employer] sedatives, limit anticholinergic medications when possible, frequent re-orientation, minimize use of restraints, open window shades during the day and close them at night -Would recommend the following medication changes/additions: restarted seroquel, 100 mg qhs + 50 mg daily for mood stabilization/psychosis/sleep. effexor 75 mg daily for mood/anxiety. Buspar 20 mg tid prn for anxiety. Please try and minimize opiates or BZD as this will likely make patients confusion/delirium worst. -Continue 1:1 sitter for safety -Will continue to follow along -Please contact with any questions.
[2022-01-25] MEDS ORDERED: HALOPERIDOL LACTATE 5 MG/ML 1 ML VIAL IVP STA ×2 (15:22→15:59)
[2022-01-25] MEDS ORDERED: HALOPERIDOL LACTATE 5 MG/ML 1 ML VIAL ONE (15:24)
--- NOTE | 2022-01-25 16:18 | P.PN ---
Subjective Progress Note Date: 01/25/22 History of Present Illness Chief Complaint: Altered mental status overdose 36-year-old male with schizophrenia, hypertension, hepatitis C chronic Patient was brought in by a friend normally needs the patient having around. He decided to bring the patient to the hospital because he started to having some altered mental status and jerking movements. Patient is known to overdose on whatever substance he can get his hands on for which the friend grew concerned and decided to bring him to the hospital for evaluation. Patient friends premature that the patient has overdosed but he doesn't know which medicine substance he thinks it could be [id number]. Patient initially was agitated he was given high doses of Ativan with no much benefit eventually he was intubated and sedated. Patient at this time unable to provide any meaningful history Blood work showed normal CBC, elevated ACL T patient known to have chronic hepatitis C Alcohol level was 62 Urine drug screen was positive for meth, TCA, marijuana EKG showed no acute changes Brain CT no acute intracranial pathology Chest x-ray no acute pathology Interval history: Patient seen and examined at bedside. He was extubated this morning. He appears to be confused. Objective - Vital Signs Vital signs: Vital Signs Temp 98.3 F 01/25/22 12:00 Pulse 99 01/25/22 15:00 Resp 12 01/25/22 15:00 BP 127/85 01/25/22 15:00 Pulse Ox 95 01/25/22 15:00 Intake & Output 01/24/22 01/25/22 01/25/22 18:59 06:59 18:59 Intake Total 0732.331 5663.838 Output Total 1580 1260 Balance -321.983 44.838 Weight 99.79 kg 91 kg 91 kg Intake: IV 960 1080 Sodium Chloride 0.9% 1, 960 1080 000 ml @ 120 mls/hr IV . Q8H20M [facility] Rx#:[id number] Intake, IV Titration 298.017 224.838 Amount Midazolam HCl 50 mg In 28.934 32.2 Sodium Chloride 0.9% 40 ml @ 1 MG/HR 1 mls/hr IV .Q24H [facility] Rx#:[id number] Potassium Chloride 10 meq 100 In Water For Injection 1 100ml.bag @ 100 mls/hr IVPB Q1H [facility] Rx#: [id number] propofoL 1,000 mg In 269.083 92.638 Empty Bag 1 bag @ Titrate IV .Q0M [facility]END[facility] TO [facility] Rx#: [id number] Output: Gastric Drainage 150 Urine 1580 1110 Other: Voiding Method Indwelling Catheter Indwelling Catheter - Exam General: non toxic, no distress, appears older than his stated age Derm: warm, dry Head: atraumatic, normocephalic, symmetric Eyes: EOMI, no lid lag, anicteric sclera Mouth: no lip lesion, mucus membranes moist Cardiovascular: S1S2 reg, no murmur, positive posterior tibial pulse bilateral, Lungs: CTA bilateral, no rhonchi, no rales , no accessory muscle use Abdominal: soft, nontender to palpation, no guarding, no appreciable organomegaly Ext: no gross muscle atrophy, no edema, no contractures Neuro: Confused. CN II-XI grossly intact, no focal neuro deficits - Labs CBC & Chem 7: 01/25/22 07:24 01/25/22 07:24 Labs: Abnormal Lab Results - Last 24 Hours (Table) 01/24/22 01/24/22 01/24/22 Range/Units 16:24 16:24 16:24 RBC (4.30-5.90) m/uL Hgb (13.0-17.5) gm/dL Hct (39.0-53.0) % Plt Count (150-450) k/uL ABG pH (7.35-7.45) ABG pCO2 (35-45) mmHg ABG pO2 (83-108) mmHg ABG Total CO2 (19-24) mmol/L ABG O2 Saturation (94-97) % VBG HCO3 22 L (24-28) mmol/L Chloride (98-107) mmol/L BUN 23 H (9-20) mg/dL Creatinine (0.66-1.25) mg/dL Glucose (74-99) mg/dL Osmolality 315 H (280-301) mosm/kg Calcium (8.4-10.2) mg/dL AST 747 H (17-59) U/L ALT 1252 H (4-49) U/L Total Protein 8.6 H (6.3-8.2) g/dL U Tricyclic Antidepress Detected H (NotDetected) U Methamphetamines Scrn Detected H (NotDetected) U Marijuana (THC) Screen Detected H (NotDetected) 01/24/22 01/25/22 01/25/22 Range/Units 20:25 06:15 07:24 RBC 3.99 L (4.30-5.90) m/uL Hgb 11.9 L (13.0-17.5) gm/dL Hct 36.2 L (39.0-53.0) % Plt Count 142 L (150-450) k/uL ABG pH 7.29 L 7.32 L (7.35-7.45) ABG pCO2 47 H 49 H (35-45) mmHg ABG pO2 >400 H 113 H (83-108) mmHg ABG Total CO2 27 H (19-24) mmol/L ABG O2 Saturation 99.3 H 98.7 H (94-97) % VBG HCO3 (24-28) mmol/L Chloride (98-107) mmol/L BUN (9-20) mg/dL Creatinine (0.66-1.25) mg/dL Glucose (74-99) mg/dL Osmolality (280-301) mosm/kg Calcium (8.4-10.2) mg/dL AST (17-59) U/L ALT (4-49) U/L Total Protein (6.3-8.2) g/dL U Tricyclic Antidepress (NotDetected) U Methamphetamines Scrn (NotDetected) U Marijuana (THC) Screen (NotDetected) 01/25/22 Range/Units 07:24 RBC (4.30-5.90) m/uL Hgb (13.0-17.5) gm/dL Hct (39.0-53.0) % Plt Count (150-450) k/uL ABG pH (7.35-7.45) ABG pCO2 (35-45) mmHg ABG pO2 (83-108) mmHg ABG Total CO2 (19-24) mmol/L ABG O2 Saturation (94-97) % VBG HCO3 (24-28) mmol/L Chloride 114 H (98-107) mmol/L BUN (9-20) mg/dL Creatinine 0.58 L (0.66-1.25) mg/dL Glucose 69 L (74-99) mg/dL Osmolality (280-301) mosm/kg Calcium 8.0 L (8.4-10.2) mg/dL AST (17-59) U/L ALT (4-49) U/L Total Protein (6.3-8.2) g/dL U Tricyclic Antidepress (NotDetected) U Methamphetamines Scrn (NotDetected) U Marijuana (THC) Screen (NotDetected) Assessment and Plan Assessment: Assessment and plan: #Acute hypoxemic respiratory failure secondary to acute drug overdose -including tricyclic antidepressants, methamphetamines, marijuana. Serum alcohol 62. -Patient extubated January 25 #Acute toxic encephalopathy -Consult neurology #History of polysubstance abuse and previous overdoses requiring intubation mechanical ventilatory support. #Recent admission for aggressive, agitated and threatening behavior #History of schizoaffective disorder -Psychiatry following #History of polysubstance abuse including alcohol and cocaine and methamphetamine. #Chronic and ongoing tobacco dependence #History of medication noncompliance
[2022-01-25] MEDS: QUEtiapine 50 MG TAB PO SCH (16:37)
[2022-01-25 17:40] LABS: Glucose,Whole Blood 96 mg/dL (75-99)
[2022-01-25] MEDS: flUPHENAZine 2.5 MG/ML (MDV) 10 ML VIAL IM PRN (19:36)
[2022-01-25] MEDS: LORazepam 2 MG/ML INJ IV PRN (20:30)
[2022-01-25] MEDS ORDERED: QUEtiapine 100 MG TAB PO SCH (21:00)
[2022-01-26] MEDS: LORazepam 2 MG/ML INJ IV PRN ×2 (01:04→08:02)
[2022-01-26] MEDS: HEPARIN SODIUM,PORCINE/PF 5,000 UNIT/0.5 ML SYRINGE SQ SCH ×4 (01:05→23:27)
[2022-01-26] MEDS: flUPHENAZine 2.5 MG/ML (MDV) 10 ML VIAL IM PRN ×2 (01:48→08:02)
[2022-01-26 05:54] LABS: Glucose,Whole Blood 82 mg/dL (75-99)
[2022-01-26 06:14] LABS: Basophils # (A) 0.1 k/uL (0-0.2); Basophils % (A) 1 %; Eosinophils # (A) 0.2 k/uL (0-0.7); Eosinophils % (A) 3 %; HCT 34.9 % (39.0-53.0); HGB 11.8 gm/dL (13.0-17.5); Lymphocytes # (A) 1.9 k/uL (1.0-4.8); Lymphocytes % (A) 28 %; MCH 29.7 pg (25.0-35.0); MCHC 33.8 g/dL (31.0-37.0); Mean Platelet Volume 8.9; Monocytes # (A) 0.5 k/uL (0-1.0); Monocytes % (A) 7 %; Neutrophils % (A) 59 %; Platelet Count 124 k/uL (150-450); RBC 3.96 m/uL (4.30-5.90); RDW 13.2 % (11.5-15.5); WBC 6.8 k/uL (3.8-10.6)
[2022-01-26 06:34] LABS: AST 517 U/L (17-59); African American GFR (CKD) >90 (>60 ml/min/1.73 sqM); Alkaline Phosphatase 54 U/L (38-126); Anion Gap 1 mmol/L; Blood Urea Nitrogen 8 mg/dL (9-20); Carbon Dioxide 25 mmol/L (22-30); Chloride 109 mmol/L (98-107); Glucose 79 mg/dL (74-99); Magnesium 1.6 mg/dL (1.6-2.3); Non-African American GFR(CKD) >90 (>60 ml/min/1.73 sqM); Potassium 3.6 mmol/L (3.5-5.1); Sodium 135 mmol/L (137-145); Total Protein 6.9 g/dL (6.3-8.2)
[2022-01-26 06:44] LABS: ALT 835 U/L (4-49)
[2022-01-26] MEDS ORDERED: Potassium Replacement Protocol 1 EACH MISC MISCELLANE PRN (06:46)
[2022-01-26] MEDS: SODIUM CHLORIDE 0.9% 1,000 ML IV SCH ×2 (06:55→16:42)
[2022-01-26] MEDS: POTASSIUM CHLORIDE 10 MEQ in WATER FOR INJECTION 1 100ML.BAG IVPB SCH ×2 (07:11→08:16)
[2022-01-26] MEDS: QUEtiapine 50 MG TAB PO SCH (08:01)
[2022-01-26] MEDS: VENLAFAXINE HCL ER 75 MG CAP PO SCH (08:01)
--- NOTE | 2022-01-26 08:34 | XR ---
EXAMINATION TYPE: XR chest 1V portable DATE OF EXAM: 01/26/2022 COMPARISON: 322 HISTORY: Shortness of breath TECHNIQUE: Single frontal view of the chest is obtained. FINDINGS: ET and NG tube have been removed. Limited inspiration with subsegmental areas of consolida tion bilaterally. Limited inspiration. No pneumothorax. IMPRESSION: 1. Patchy areas of atelectasis or infiltrate stable.
--- NOTE | 2022-01-26 10:03 | P.PN ---
Subjective Progress Note Date: 01/26/22 Principal diagnosis: Drug overdose This is a 36-year-old male patient with a known history of schizoaffective disorder, previous drug overdoses, multi-substance abuse, hepatitis C, previous acute respiratory failure requiring intubation mechanical ventilatory support after drinking 350 MLS of [facility] assisted living back in January 2021. We had followed him at that time. He was recently discharged on 12/27/2021 after being admitted from the [facility] with aggressive anxious and psychotic behaviors. Yesterday 01/24/2022 he was brought in by a friend after the patient was having altered mental status and tremors. He had been visiting with a friend playing video games at the time. His friend was unsure what the patient may have taken. His urine drug screen here was positive for tricyclic antidepressants, methamphetamines, marijuana. He was unable to protect his airway and subsequent was intubated and placed on mechanical ventilator and admitted to the ICU. He is seen today in consultation for the same. Current ventilator settings include assist control mode with a rate of 20, tidal volume 400, FiO2 30% and a PEEP of 5. Morning blood gases revealed a PaO2 of 113, pCO2 49, pH 7.32. He has normal saline running at 120 ML's per hour. He is on a Versed drip at 5 mg per hour. Propofol at 45 mcg/kg/m. Subcutaneous heparin for DVT prophylaxis. White count 4.3. Hemoglobin 11.2. Platelets 142. Sodium 140. Potassium 3.6. Chloride 114. Bicarb 25. BUN 14. Creatinine 0.58. His x-ray reveals good placement of the endotracheal tube. Placement of the nasogastric tube. No evidence of pneumothorax or pleural effusion. Patchy basilar basilar density noted. Computed tomography scan of the brain reveals no acute intracranial process. He's been afebrile. Maintaining sinus rhythm with a controlled ventricular rate. Blood pressure stable. The patient is seen today 01/26/2022 in follow-up in the intensive care unit. He was successfully extubated yesterday. He is currently on 2 L/m per nasal cannula. Chest x-ray shows bilateral patchy atelectasis/infiltrates. He is alert at times oriented times one. Mostly rambling words in conversations. He has been seen and evaluated by psychiatric services. He's been placed on Prolixin, BuSpar, Seroquel, Effexor. He is on normal saline running 120 ML's per hour. He is restrained in 4 points currently. A vice president safety is at the bedside. He was quite agitated and somewhat aggressive post extubation. White count 6.8. Hemoglobin 11.8. Platelet count 124,000. Sodium 135. Potassium 3.6. BUN 8. Creatinine 0.62. AST 517. ALT 835. Trending now. He is on heparin subcutaneous for DVT prophylaxis. Objective - Vital Signs Vital signs: Vital Signs Temp 98.1 F 01/26/22 08:00 Pulse 68 01/26/22 09:00 Resp 18 01/26/22 09:00 BP 127/71 01/26/22 09:00 Pulse Ox 95 01/26/22 09:00 Intake & Output 01/25/22 01/26/22 01/26/22 18:59 06:59 18:59 Intake Total 2414.838 1760 240 Output Total 1720 1647 940 Balance 694.838 113 -700 Weight 91 kg Intake: IV 1440 1560 240 Sodium Chloride 0.9% 1, 1440 1560 240 000 ml @ 120 mls/hr IV . Q8H20M [facility] Rx#:[id number] Intake, IV Titration 224.838 Amount Midazolam HCl 50 mg In 32.2 Sodium Chloride 0.9% 40 ml @ 1 MG/HR 1 mls/hr IV .Q24H [facility] Rx#:[id number] Potassium Chloride 10 meq 100 In Water For Injection 1 100ml.bag @ 100 mls/hr IVPB Q1H [facility] Rx#: [id number] propofoL 1,000 mg In 92.638 Empty Bag 1 bag @ Titrate IV .Q0M [facility] Rx#: [id number] Oral 750 200 Output: Gastric Drainage 150 Urine 1570 1647 940 Other: Voiding Method Indwelling Catheter Indwelling Catheter Indwelling Catheter - Exam GENERAL EXAM: Alert, oriented times one, rambling conversation, 36-year-old male patient, on 2 L nasal cannula, comfortable in no apparent distress. HEAD: Normocephalic. EYES: Normal reaction of pupils, equal size. NOSE: Clear with pink turbinates. THROAT: No erythema or exudates. NECK: No masses, no JVD. CHEST: No chest wall deformity. LUNGS: Equal air entry with no crackles, wheeze, rhonchi or dullness. CVS: S1 and S2 normal with no audible murmur, regular rhythm. ABDOMEN: No hepatosplenomegaly, normal bowel sounds, no guarding or rigidity. SPINE: No scoliosis or deformity SKIN: No rashes CENTRAL NERVOUS SYSTEM: Awake, oriented times one. Tone is normal in all 4 extremities. EXTREMITIES: There is no peripheral edema. No clubbing, no cyanosis. Peripheral pulses are intact. - Labs CBC & Chem 7: 01/26/22 05:50 01/26/22 05:50 Labs: Abnormal Lab Results - Last 24 Hours (Table) 01/26/22 01/26/22 Range/Units 05:50 05:50 RBC 3.96 L (4.30-5.90) m/uL Hgb 11.8 L (13.0-17.5) gm/dL Hct 34.9 L (39.0-53.0) % Plt Count 124 L (150-450) k/uL Sodium 135 L (137-145) mmol/L Chloride 109 H (98-107) mmol/L BUN 8 L (9-20) mg/dL Creatinine 0.62 L (0.66-1.25) mg/dL Calcium 8.0 L (8.4-10.2) mg/dL AST 517 H (17-59) U/L ALT 835 H (4-49) U/L Albumin 3.0 L (3.5-5.0) g/dL Assessment and Plan Assessment: 1 Acute hypoxemic respiratory failure secondary to acute drug overdose including tricyclic antidepressants, methamphetamines, marijuana. Serum alcohol 62. Intubated on admission on 01/24/2022, successfully extubated yesterday 01/25/2022. Currently on 2 L nasal cannula. 2 History of polysubstance abuse and previous overdoses requiring intubation mechanical ventilatory support. 3 Recent admission for aggressive, agitated and threatening behavior 4 History of schizoaffective disorder 5 History of alcohol abuse 6 History of cocaine use 7 Chronic and ongoing tobacco dependence a History of medication noncompliance Plan: The patient was seen and evaluated Chest x-ray, labs reviewed Psychiatry has seen the patient Medication recommendations noted drying tumbler operator remains at the bedside We'll continue to monitor in the ICU another 24 hour We will continue to follow I have personally seen and examined the patient, performed the documentation and the assessment and plan as written. Number of minutes spent on the visit: 10.
--- NOTE | 2022-01-26 10:12 | P.CNNES ---
History of Present Illness Consult date: 01/25/22 Requesting physician: Nettie Quintana Reason for Consult: Encephalopathy History of Present Illness: Patient is a 36-year-old male who came to the hospital yesterday at 3:44 PM for possible overdose. Patient not able to provide any history. As per records from ED, patient was accompanied by his friend Thanh, who mentioned that patient at around 1:30 PM started to be altered with tremulousness. Livan knows that patient overdose is on a lot of medications. He had mentioned that patient did ingest whatever substance he can get his hands on. He was not sure what patient has taken. Patient has previously done overdoses in the past and was admitted to inpatient psych for a polysubstance abuse and unpredictable behavior. He has history of schizoaffective disorder and Meth use. Patient was given large amount of Ativan, total 12 mg in the ER to help with his tremulousness. He became more drowsy and was intubated in the ER. Patient was placed in ICU. He was extubated today. He has been more aggressive, belligerent, confrontational, for which she has required Haldol. He was trying to climb out of bed, and was not cooperative, and swing his arm on one of the nurses. After given Haldol he was put on 4 point restraints. At present patient is encephalopathic, groggy, dry mouth.. Patient's blood test shows normal CBC PT/PTT, normal basic metabolic panel. He is AST is elevated 747, ALP 1252. CK is normal, troponin negative. TSH normal. UA negative, urine drug screen positive for tricyclics, methamphetamine and marijuana. Blood alcohol Level was elevated 62. CT head showed no acute intracranial process. Moderate paranasal sinus disease most pronounced in the left maxillary sinus. I reviewed computed tomography scan of the head percent agree with the findings. It also appears patient has involvement of the left ethmoid and sphenoid sinuses. Chest x-ray showed no acute process EKG shows sinus tachycardia. Review of Systems ROS unobtainable: due to mental status Past Medical History Past Medical History: No Reported History, Unable to Obtain, GERD/Reflux, Hypertension, Liver Disease Additional Past Medical History / Comment(s): Hepatitis C, DDD, back pain, bilat eral carpel tunnel syndrome. He reports that he has heart disease that was found when he had kidney problems but he denies having a stress test or cardiac catheterization. History of Any Multi-Drug Resistant Organisms: None Reported MDRO Source:: unknown Past Surgical History: No Surgical Hx Reported, Unable to Obtain Additional Past Surgical History / Comment(s): Pt states he has had numerous "cy sts" removed from where he injected IV drugs. Past Anesthesia/Blood Transfusion Reactions: No Reported Reaction, Unable to Obtain Additional Past Anesthesia/Blood Transfusion Reaction / Comment(s): Pt states he has never had surgery. Past Psychological History: Anxiety, Depression, Unable to Obtain Additional Psychological History / Comment(s): Pt currently at [email or web address]. He denies suicidal thoughts/plans recently. He has had multiple [facility] mental health admission. Smoking Status: Current every day smoker Past Alcohol Use History: Occasional Additional Past Alcohol Use History / Comment(s): Pt started smoking in 1994 and smokes 1ppd Past Drug Use History: Heroin, Marijuana, Methamphetamine Additional Drug Use History / Comment(s): Pt states he has used drugs in the past but none recently d/t no money. 12/15/21 UDS +marijuana - Past Family History Mother Family Medical History: Unable to Obtain, Rheumatoid Arthritis (RA) Additional Family Medical History / Comment(s): Mother is . Father Family Medical History: Coronary Artery Disease (CAD) Medications and Allergies Home Medications Medication Instructions Recorded Confirmed Type Sublocade 300mg/1.5ml Xr Solution 300 mg SQ Q28D 12/15/21 01/24/22 History Propranolol [Inderal] 20 mg PO BID 30 Days tab 12/21/21 01/24/22 Rx QUEtiapine [SEROquel] 200 mg PO HS 30 Days tab 12/21/21 01/24/22 Rx Docusate [Colace] 100 mg PO BID PRN 01/24/22 01/24/22 History Nicotine 14Mg/24Hr Patch [Habitrol] 1 patch TRANSDERM DAILY PRN 01/24/22 01/24/22 History Venlafaxine HCl [Effexor XR] 150 mg PO DAILY 01/24/22 01/24/22 History buPROPion HCL [buPROPion HCL XL] 450 mg PO DAILY 01/24/22 01/24/22 History busPIRone HCL 15 mg PO TID 01/24/22 01/24/22 History polyethylene glycoL 3350 [Miralax] 17 gm PO DAILY PRN 01/24/22 01/24/22 History Allergies Allergy/AdvReac Type Severity Reaction Status Date / Time No Known Allergies Allergy Verified 01/24/22 17:48 Physical Examination - Vital Signs Vital Signs: Vital Signs Temp Pulse Resp BP Pulse Ox 01/25/22 17:00 87 12 122/74 95 01/25/22 16:00 98.6 F 96 21 129/77 92 L 01/25/22 15:00 99 12 127/85 95 01/25/22 14:00 94 13 124/77 96 01/25/22 13:00 93 20 120/86 93 L 01/25/22 12:00 98.3 F 91 17 127/81 94 L 01/25/22 11:51 16 01/25/22 11:00 87 16 130/82 97 01/25/22 10:00 74 21 110/68 95 01/25/22 09:00 73 20 111/67 95 01/25/22 08:00 98.4 F 77 20 107/67 95 01/25/22 07:00 70 20 106/65 95 01/25/22 06:00 71 20 104/62 96 01/25/22 05:00 69 20 107/65 96 01/25/22 04:00 98 F 72 20 106/64 96 01/25/22 03:00 70 20 106/68 96 01/25/22 02:00 77 20 112/70 96 01/25/22 01:00 76 20 115/73 97 01/25/22 00:00 98.0 F 75 20 113/72 96 01/24/22 23:50 75 20 112/72 97 01/24/22 23:20 98.3 F 75 20 96 01/24/22 22:50 77 106/69 97 01/24/22 22:40 81 111/65 97 01/24/22 22:30 80 108/66 97 01/24/22 22:20 80 108/66 97 01/24/22 22:10 80 112/66 97 01/24/22 22:00 82 111/67 97 01/24/22 21:50 83 20 111/67 96 01/24/22 21:40 84 20 111/69 96 01/24/22 21:30 84 26 H 110/63 96 01/24/22 21:20 85 21 110/63 96 01/24/22 21:10 86 22 109/62 96 01/24/22 21:00 86 20 110/64 96 01/24/22 20:50 86 20 110/64 96 01/24/22 20:40 89 20 113/69 96 01/24/22 20:30 89 22 142/99 98 01/24/22 20:20 96 27 H 142/99 99 01/24/22 20:10 89 13 124/76 98 01/24/22 20:00 93 15 128/78 99 01/24/22 19:42 92 20 114/68 98 01/24/22 19:30 120/73 01/24/22 19:20 120/73 01/24/22 19:10 120/73 01/24/22 19:00 94 L 01/24/22 17:52 98.4 F 97 18 106/50 96 Intake and Output 01/25/22 01/25/22 01/25/22 06:59 14:59 22:59 Intake Total 7478.091 4934.838 1110 Output Total 1580 1080 480 Balance -356.510 104.838 630 Intake: IV 960 960 360 Sodium Chloride 0.9% 1, 960 960 360 000 ml @ 120 mls/hr IV . Q8H20M [facility] Rx#:[id number] Intake, IV Titration 263.490 224.838 Amount Midazolam HCl 50 mg In 28.934 32.2 Sodium Chloride 0.9% 40 ml @ 1 MG/HR 1 mls/hr IV .Q24H [facility] Rx#:[id number] Potassium Chloride 10 meq 100 In Water For Injection 1 100ml.bag @ 100 mls/hr IVPB Q1H [facility] Rx#: [id number] propofoL 1,000 mg In 234.556 92.638 Empty Bag 1 bag @ Titrate IV .Q0M [facility] Rx#: [id number] Oral 750 Output: Gastric Drainage 150 Urine 1580 930 480 Other: Voiding Method Indwelling Catheter Indwelling Catheter Indwelling Catheter Weight 91 kg 91 kg Patient is a young male, who appears encephalopathic. Patient is in 4 points restrain. Patient knows his age, and that he is in [facility]. He knows it is January and the year is 2021. Is slightly slurred because of dry mouth. No aphasia or dysarthria. Attention, concentration and fund of knowledge is very limited because of encephalopathy. On cranial examination, pupils are equal, round and reacting to light, visual peña are full on confrontation, with no neglect on double simultaneous stimulation. His extraocular muscles are intact with no nystagmus. Face is symmetric, tongue protrudes to the midline. Palatal elevation and sensation normal, hearing and shoulder shrug normal, facial sensation normal. Shoulder sh rug normal. No evidence of tongue bite angela. On muscle strength testing, patient's senior hr business partner strength is normal. Ankle dorsiflexion, plantar flexion are normal. Patient's biceps appears normal. Hip flexion limited amount because of restraints also appeared normal. Deep tendon reflexes are symmetric 2+ to 3 in the upper limbs, 3 at the knees 2+ ankles and plantars downgoing. Sensory to touch is equal with no neglect. Cerebellar function could not be performed because of patient being in rest raints. Tone and bulk of muscles normal. Gait not able to be checked. On general examination, there is no carotid bruit or murmur, S1-S2 audible. Abdomen is soft nontender. Bowel sounds present. No organomegaly. Chest is clear. Peripheral pulses are present. No edema. Results - Laboratory Findings CBC and BMP: 01/26/22 05:50 01/26/22 05:50 Abnormal Lab Findings: Abnormal Labs 01/24/22 01/24/22 01/24/22 16:24 16:24 16:24 RBC Hgb Hct Plt Count ABG pH ABG pCO2 ABG pO2 ABG Total CO2 ABG O2 Saturation VBG HCO3 22 L Chloride BUN 23 H Creatinine Glucose Osmolality 315 H Calcium AST 747 H ALT 1252 H Total Protein 8.6 H U Tricyclic Antidepress Detected H U Methamphetamines Scrn Detected H U Marijuana (THC) Screen Detected H 01/24/22 01/25/22 01/25/22 20:25 06:15 07:24 RBC 3.99 L Hgb 11.9 L Hct 36.2 L Plt Count 142 L ABG pH 7.29 L 7.32 L ABG pCO2 47 H 49 H ABG pO2 >400 H 113 H ABG Total CO2 27 H ABG O2 Saturation 99.3 H 98.7 H VBG HCO3 Chloride BUN Creatinine Glucose Osmolality Calcium AST ALT Total Protein U Tricyclic Antidepress U Methamphetamines Scrn U Marijuana (THC) Screen 01/25/22 07:24 RBC Hgb Hct Plt Count ABG pH ABG pCO2 ABG pO2 ABG Total CO2 ABG O2 Saturation VBG HCO3 Chloride 114 H BUN Creatinine 0.58 L Glucose 69 L Osmolality Calcium 8.0 L AST ALT Total Protein U Tricyclic Antidepress U Methamphetamines Scrn U Marijuana (THC) Screen Assessment and Plan Assessment: * Altered mental status, likely due to delirium from drug overdose. At present patient has toxic metabolic encephalopathy. Patient has overdosed of unclear substances. Urine drug screen positive for tricyclics, methamphetamines and marijuana. Patient was also intoxicated with blood or level of 62. * History of polysubstance abuse. * Schizoaffective disorder Plan: * Patient's encephalopathy is likely related to overdose on medications, possible alcohol withdrawal and perhaps related to medication (Ativan) given in the ER. Patient's examination is nonfocal. No other neurological workup indicated. * We will follow patient clinically. * Thank you for the consult.
--- NOTE | 2022-01-26 12:48 | P.PN ---
Subjective Progress Note Date: 01/26/22 History of Present Illness Chief Complaint: Altered mental status overdose 36-year-old male with schizophrenia, hypertension, hepatitis C chronic Patient was brought in by a friend normally needs the patient having around. He decided to bring the patient to the hospital because he started to having some altered mental status and jerking movements. Patient is known to overdose on whatever substance he can get his hands on for which the friend grew concerned and decided to bring him to the hospital for evaluation. Patient friends premature that the patient has overdosed but he doesn't know which medicine substance he thinks it could be [id number]. Patient initially was agitated he was given high doses of Ativan with no much benefit eventually he was intubated and sedated. Patient at this time unable to provide any meaningful history Blood work showed normal CBC, elevated ACL T patient known to have chronic hepatitis C Alcohol level was 62 Urine drug screen was positive for meth, TCA, marijuana EKG showed no acute changes Brain CT no acute intracranial pathology Chest x-ray no acute pathology Interval history: Patient seen and examined at bedside. He is confused. He required restraining overnight for being violent. He required multiple doses of antipsychotics Prolixin help with agitation. Resume Bedside sitter. Objective - Vital Signs Vital signs: Vital Signs Temp 98.2 F 01/26/22 12:00 Pulse 71 01/26/22 12:00 Resp 12 01/26/22 12:00 BP 115/69 01/26/22 12:00 Pulse Ox 90 L 01/26/22 12:00 Intake & Output 01/25/22 01/26/22 01/26/22 18:59 06:59 18:59 Intake Total 2414.838 1760 600 Output Total 1720 1647 1215 Balance 694.838 113 -615 Weight 91 kg Intake: IV 1440 1560 600 Sodium Chloride 0.9% 1, 1440 1560 600 000 ml @ 120 mls/hr IV . Q8H20M [facility] Rx#:[id number] Intake, IV Titration 224.838 Amount Midazolam HCl 50 mg In 32.2 Sodium Chloride 0.9% 40 ml @ 1 MG/HR 1 mls/hr IV .Q24H [facility] Rx#:[id number] Potassium Chloride 10 meq 100 In Water For Injection 1 100ml.bag @ 100 mls/hr IVPB Q1H [facility] Rx#: [id number] propofoL 1,000 mg In 92.638 Empty Bag 1 bag @ Titrate IV .Q0M [facility] Rx#: [id number] Oral 750 200 Output: Gastric Drainage 150 Urine 1570 1647 1215 Other: Voiding Method Indwelling Catheter Indwelling Catheter External Catheter - Exam General: non toxic, no distress, appears older than his stated age Derm: warm, dry Head: atraumatic, normocephalic, symmetric Eyes: EOMI, no lid lag, anicteric sclera Mouth: no lip lesion, mucus membranes moist Cardiovascular: S1S2 reg, no murmur, positive posterior tibial pulse bilateral, Lungs: CTA bilateral, no rhonchi, no rales , no accessory muscle use Abdominal: soft, nontender to palpation, no guarding, no appreciable organomegaly Ext: no gross muscle atrophy, no edema, no contractures Neuro: Confused. CN II-XI grossly intact, no focal neuro deficits - Labs CBC & Chem 7: 01/26/22 05:50 01/26/22 05:50 Labs: Abnormal Lab Results - Last 24 Hours (Table) 01/26/22 01/26/22 Range/Units 05:50 05:50 RBC 3.96 L (4.30-5.90) m/uL Hgb 11.8 L (13.0-17.5) gm/dL Hct 34.9 L (39.0-53.0) % Plt Count 124 L (150-450) k/uL Sodium 135 L (137-145) mmol/L Chloride 109 H (98-107) mmol/L BUN 8 L (9-20) mg/dL Creatinine 0.62 L (0.66-1.25) mg/dL Calcium 8.0 L (8.4-10.2) mg/dL AST 517 H (17-59) U/L ALT 835 H (4-49) U/L Albumin 3.0 L (3.5-5.0) g/dL Assessment and Plan Assessment: Assessment and plan: #Acute hypoxemic respiratory failure secondary to acute drug overdose -including tricyclic antidepressants, methamphetamines, marijuana. Serum alcohol 62. -Patient extubated January 25 -His currently on 2 L #Acute toxic metabolic encephalopathy -Secondary to drug overdose -Consult neurology #History of polysubstance abuse and previous overdoses requiring intubation mechanical ventilatory support. #Recent admission for aggressive, agitated and threatening behavior #History of schizoaffective disorder -Psychiatry following #History of polysubstance abuse including alcohol and cocaine and methamphetam ine. #Chronic and ongoing tobacco dependence #History of medication noncompliance
--- NOTE | 2022-01-26 13:47 | P.PN ---
Progress Note - Text Progress Note Date: 01/26/22 Interval History: Patient was seen today for psychiatric follow-up regarding patient's delirium. Patient required several prn meds overnight due to agitation and aggression. Leather Stamper spoke with patient's nurse and sitter today but the patient and answered any questions. Patient was seen laying in the bed in restraints. Patient appeared to be fairly lethargic and awoken to commercial insurance underwriter however continues to appear to be confused and was non sensical and illogical in his thought process/speech. It was difficult to comprehend what patient was saying and he appeared to be fairly somnolent and went back to sleep and stop responding to questions. He did know his name and knew that he was in "[place]" however did not answer any other questions. Mental Status Exam: General Appearance: Patient appears to be discheveled in appearance, older than stated age is lethargic, confused. Patient appears to have poor hygiene and grooming. unshaven Behavior: Patient is laying in bed, confused, lethargic Speech: Patient's speech is difficult to comprehend. garbled. Mood/Affect: Unable to assess Suicidality/Homicidality: Unable to assess Perceptions: Unable to assess Though content/process: Disorganized, poor attention. Illogical. Memory and concentration: AOX2, confused, poor attention span Judgment and insight: Chronically poor IMPRESSIONS: Delirium likely multiple etiologies including withdrawal from substances, medications including benzodiazepines and anesthetic medications. Schizoaffective disorder, depressive type drug overdose Alcohol use disorder Cannabis use disorders Methamphetamine abuse Nicotine dependence Plan: -At this time will continue following patient as he is being treated medically for withdrawals and overdose to see if patient requires inpt psych hospitalization. -Delirium precautions recommended with patient including - avoiding use of narcotics and CABLE TOOL OPERATOR sedatives, limit anticholinergic medications when possible, frequent re-orientation, minimize use of restraints, open window shades during the day and close them at night -Would recommend the following medication changes/additions: Increased seroquel, 200 mg qhs + 100 mg daily for mood stabilization/psychosis/sleep. Effexor 75 mg daily for mood/anxiety. Buspar 20 mg tid prn for anxiety. Please try and minimize opiates or BZD as this will likely make patients confusion/delirium worst. -CIWA protocol with prn ativan as needed for etoh w/d sx. -Continue 1:1 sitter for safety -spoke with nurse and communicated plan. -Will continue to follow along -Please contact with any questions.
[2022-01-26] MEDS: QUEtiapine 200 MG TAB PO SCH (20:21)
[2022-01-27] MEDS: flUPHENAZine 2.5 MG/ML (MDV) 10 ML VIAL IM PRN (03:03)
[2022-01-27] MEDS: SODIUM CHLORIDE 0.9% 1,000 ML IV SCH ×2 (03:06→08:28)
[2022-01-27 06:26] LABS: Basophils % (A) 1 %; Eosinophils # (A) 0.3 k/uL (0-0.7); Eosinophils % (A) 5 %; HCT 40.5 % (39.0-53.0); HGB 13.2 gm/dL (13.0-17.5); Lymphocytes # (A) 1.5 k/uL (1.0-4.8); Lymphocytes % (A) 27 %; MCH 28.9 pg (25.0-35.0); MCHC 32.5 g/dL (31.0-37.0); MCV 88.8 fL (80.0-100.0); Mean Platelet Volume 11.3; Monocytes # (A) 0.4 k/uL (0-1.0); Monocytes % (A) 7 %; Neutrophils # (A) 3.2 k/uL (1.3-7.7); Neutrophils % (A) 57 %; RBC 4.56 m/uL (4.30-5.90); RDW 13.4 % (11.5-15.5); WBC 5.6 k/uL (3.8-10.6)
[2022-01-27 06:58] LABS: ALT 742 U/L (4-49); AST 550 U/L (17-59); African American GFR (CKD) >90 (>60 ml/min/1.73 sqM); Albumin 3.2 g/dL (3.5-5.0); Alkaline Phosphatase 56 U/L (38-126); Anion Gap 6 mmol/L; Blood Urea Nitrogen 7 mg/dL (9-20); Calcium 8.5 mg/dL (8.4-10.2); Carbon Dioxide 21 mmol/L (22-30); Chloride 111 mmol/L (98-107); Glucose 73 mg/dL (74-99); Magnesium 1.7 mg/dL (1.6-2.3); Non-African American GFR(CKD) >90 (>60 ml/min/1.73 sqM); Potassium 4.1 mmol/L (3.5-5.1); Sodium 138 mmol/L (137-145); Total Bilirubin 1.1 mg/dL (0.2-1.3); Total Protein 7.4 g/dL (6.3-8.2)
[2022-01-27 07:59] LABS: Platelet Count 79 k/uL (150-450)
[2022-01-27] MEDS: QUEtiapine 100 MG TAB PO SCH (08:28)
[2022-01-27] MEDS: VENLAFAXINE HCL ER 75 MG CAP PO SCH (08:28)
[2022-01-27] MEDS: HEPARIN SODIUM,PORCINE/PF 5,000 UNIT/0.5 ML SYRINGE SQ SCH ×3 (08:28→20:59)
--- NOTE | 2022-01-27 08:44 | P.PN ---
Subjective Progress Note Date: 01/27/22 Principal diagnosis: Drug overdose This is a 36-year-old male patient with a known history of schizoaffective disorder, previous drug overdoses, multi-substance abuse, hepatitis C, previous acute respiratory failure requiring intubation mechanical ventilatory support after drinking 350 MLS of hand tube coater back in January 2021. We had followed him at that time. He was recently discharged on 12/27/2021 after being admitted from the [facility] with aggressive anxious and psychotic behaviors. Yesterday 01/24/2022 he was brought in by a friend after the patient was having altered mental status and tremors. He had been visiting with a friend playing video games at the time. His friend was unsure what the patient may have taken. His urine drug screen here was positive for tricyclic antidepressants, methamphetamines, marijuana. He was unable to protect his airway and subsequent was intubated and placed on mechanical ventilator and admitted to the ICU. He is seen today in consultation for the same. Current ventilator settings include assist control mode with a rate of 20, tidal volume 400, FiO2 30% and a PEEP of 5. Morning blood gases revealed a PaO2 of 113, pCO2 49, pH 7.32. He has normal saline running at 120 ML's per hour. He is on a Versed drip at 5 mg per hour. Propofol at 45 mcg/kg/m. Subcutaneous heparin for DVT prophylaxis. White count 4.3. Hemoglobin 11.2. Platelets 142. Sodium 140. Potassium 3.6. Chloride 114. Bicarb 25. BUN 14. Creatinine 0.58. His x-ray reveals good placement of the endotracheal tube. Placement of the nasogastric tube. No evidence of pneumothorax or pleural effusion. Patchy basilar basilar density noted. Computed tomography scan of the brain reveals no acute intracranial process. He's been afebrile. Maintaining sinus rhythm with a controlled ventricular rate. Blood pressure stable. The patient is seen today 01/26/2022 in follow-up in the intensive care unit. He was successfully extubated yesterday. He is currently on 2 L/m per nasal cannula. Chest x-ray shows bilateral patchy atelectasis/infiltrates. He is alert at times oriented times one. Mostly rambling words in conversations. He has been seen and evaluated by psychiatric services. He's been placed on Prolixin, BuSpar, Seroquel, Effexor. He is on normal saline running 120 ML's per hour. He is restrained in 4 points currently. A food safety scientist is at the bedside. He was quite agitated and somewhat aggressive post extubation. White count 6.8. Hemoglobin 11.8. Platelet count 124,000. Sodium 135. Potassium 3.6. BUN 8. Creatinine 0.62. AST 517. ALT 835. Trending now. He is on heparin subcutaneous for DVT prophylaxis. The patient is seen today 01/27/2022 in follow-up in the intensive care unit. He is currently resting in bed. He is awake. Easily arousable. Drifts off easily. He did eat a full breakfast. He is oriented times one. His medications have been reviewed by psychiatric services. Continued on BuSpar, Prolixin, Seroquel, Effexor. Ativan as needed. White count 5.6. Hemoglobin 13.2. Platelet count 79,000. Sodium 138. Potassium 4.1. Bicarb 21. BUN 7. Creatinine 0.55. Glucose 73. AST 550. ALT 742. He is maintaining good O2 saturations and then low 90s. Afebrile. Hemodynamically stable. Objective - Vital Signs Vital signs: Vital Signs Temp 98.9 F 01/27/22 04:00 Pulse 68 01/27/22 07:00 Resp 16 01/27/22 08:00 BP 144/111 01/27/22 07:00 Pulse Ox 93 L 01/27/22 07:00 Intake & Output 01/26/22 01/27/22 01/27/22 18:59 06:59 18:59 Intake Total 1320 1440 120 Output Total 1715 1150 Balance -395 290 120 Weight 86.5 kg Intake: IV 1320 1440 120 Sodium Chloride 0.9% 1, 1320 1440 120 000 ml @ 120 mls/hr IV . Q8H20M [facility] Rx#:[id number] Output: Urine 1715 1150 Other: Voiding Method External Catheter Urinal Urinal # Voids 1 1 - Exam GENERAL EXAM: Alert, oriented times one, rambling conversation, 36-year-old male patient, on room air, comfortable in no apparent distress. HEAD: Normocephalic. EYES: Normal reaction of pupils, equal size. NOSE: Clear with pink turbinates. THROAT: No erythema or exudates. NECK: No masses, no JVD. CHEST: No chest wall deformity. LUNGS: Equal air entry with no crackles, wheeze, rhonchi or dullness. CVS: S1 and S2 normal with no audible murmur, regular rhythm. ABDOMEN: No hepatosplenomegaly, normal bowel sounds, no guarding or rigidity. SPINE: No scoliosis or deformity SKIN: No rashes CENTRAL NERVOUS SYSTEM: Awake, oriented times one. Tone is normal in all 4 extremities. EXTREMITIES: There is no peripheral edema. No clubbing, no cyanosis. Periphe ral pulses are intact. - Labs CBC & Chem 7: 01/27/22 05:37 01/27/22 05:37 Labs: Abnormal Lab Results - Last 24 Hours (Table) 01/27/22 01/27/22 Range/Units 05:37 05:37 Plt Count 79 L (150-450) k/uL Chloride 111 H (98-107) mmol/L Carbon Dioxide 21 L (22-30) mmol/L BUN 7 L (9-20) mg/dL Creatinine 0.55 L (0.66-1.25) mg/dL Glucose 73 L (74-99) mg/dL AST 550 H (17-59) U/L ALT 742 H (4-49) U/L Albumin 3.2 L (3.5-5.0) g/dL Assessment and Plan Assessment: 1 Acute hypoxemic respiratory failure secondary to acute drug overdose including tricyclic antidepressants, methamphetamines, marijuana. Serum alcohol 62. Intubated on admission on 01/24/2022, successfully extubated yesterday 01/25/2022. Currently on room air. 2 History of polysubstance abuse and previous overdoses requiring intubation mechanical ventilatory support. 3 Recent admission for aggressive, agitated and threatening behavior 4 History of schizoaffective disorder 5 History of alcohol abuse 6 History of cocaine use 7 Chronic and ongoing tobacco dependence a History of medication noncompliance Plan: The patient was seen and evaluated Psychiatric medications per psychiatry orderly remains at the bedside We'll continue to monitor him here in the ICU We will continue to follow I have personally seen and examined the patient, performed the documentation and the assessment and plan as written. Number of minutes spent on the visit: 10.
--- NOTE | 2022-01-27 09:12 | P.PN ---
Subjective Progress Note Date: 01/26/22 Patient was seen for a follow-up. Patient continues to be encephalopathic. He is sedated. He has received 2 mg of Ativan. Also receiving Seroquel 50 mg. Patient apparently was pulling everything, agitated when he was awake. Sitter is also present. Patient not able to provide any history. Objective - Vital Signs Vital signs: Vital Signs Temp 99.2 F 01/27/22 08:00 Pulse 81 01/27/22 08:00 Resp 21 01/27/22 08:00 BP 108/77 01/27/22 08:00 Pulse Ox 94 L 01/27/22 08:00 Intake & Output 01/26/22 01/27/22 01/27/22 18:59 06:59 18:59 Intake Total 1320 1440 120 Output Total 1715 1150 Balance -395 290 120 Weight 86.5 kg Intake: IV 1320 1440 120 Sodium Chloride 0.9% 1, 1320 1440 120 000 ml @ 120 mls/hr IV . Q8H20M [facility] Rx#:[id number] Output: Urine 1715 1150 Other: Voiding Method External Catheter Urinal Urinal # Voids 1 1 - Exam Patient is obtunded, sedated from recent Ativan. Patient mumbles. Pupils are equal, round and reacting. Gaze is midline. No facial droopiness. Oculocephalics are present. Visual peña cannot be tested. Patient's tone is equal in the arms and legs. Reflexes are somewhat brisk, but symmetric and plantars are downgoing. Nonsustained clonus. - Labs CBC & Chem 7: 01/27/22 05:37 01/27/22 05:37 Labs: Abnormal Lab Results - Last 24 Hours (Table) 01/27/22 01/27/22 Range/Units 05:37 05:37 Plt Count 79 L (150-450) k/uL Chloride 111 H (98-107) mmol/L Carbon Dioxide 21 L (22-30) mmol/L BUN 7 L (9-20) mg/dL Creatinine 0.55 L (0.66-1.25) mg/dL Glucose 73 L (74-99) mg/dL AST 550 H (17-59) U/L ALT 742 H (4-49) U/L Albumin 3.2 L (3.5-5.0) g/dL Assessment and Plan Assessment: * Altered mental status, likely due to delirium from drug overdose. At present patient has toxic metabolic encephalopathy. Patient has overdosed of unclear substances. Urine drug screen positive for tricyclics, methamphetamines and marijuana. Patient was also intoxicated with blood or level of 62. * History of polysubstance abuse. * Schizoaffective disorder Plan: * Patient's encephalopathy is likely related to overdose on medications, possible alcohol withdrawal and perhaps related to medication (Ativan). Patient's examination is nonfocal. No other neurological workup indicated. * Psychiatry following. Patient's dose of Seroquel is being adjusted. * Continue supportive care. Discussed with patient's nurse in detail.
[2022-01-27 12:54] VITALS: BMI 27.3
--- NOTE | 2022-01-27 13:28 | P.PN ---
Progress Note - Text Progress Note Date: 01/27/22 Interval History: Patient was seen today for psychiatric follow-up regarding patient's delirium. Patient required less prn meds overnight last night. He has been taking his meds as perscribed. Patients nurse claims that patient still has garbled speech but is doing better and less agitated today. He is also off restraints. He was seen by magazine writer at the bedside and was agreeable to speak. He appears to be more awake and alert today. He was more appropriate and had improvement in concentration. He claims that he forgets why he came to the hospital and denied remembering overdosing on anything. He contionues to have some confusion and was trying to drink his pepsi. He states that he does not know how he slept last night. He was oriented X 3 today but beleives that he came into the hospital yetserday. He is denying any Ah or Vh and denying any SI or HI. Mental Status Exam: General Appearance: Patient appears to be more alert today, older than stated age is still confused. Patient appears to have poor hygiene and grooming, improving midlly. unshaven Behavior: Patient is laying in bed, confused, improving mildly. less lethargic today Speech: Patient's speech is difficult to comprehend. garbled, improving midlly Mood/Affect: claims his mood is "ok" and affect is constricted Suicidality/Homicidality: denies Perceptions: denies Though content/process: Disorganized, improving attention. illogical at times. no paranoia Memory and concentration: AOX2, confused, poor attention span Judgment and insight: Chronically poor, improving mildly IMPRESSIONS: Delirium likely multiple etiologies including withdrawal from substances, medications including benzodiazepines and anesthetic medications, improving Schizoaffective disorder, depressive type drug overdose Alcohol use disorder Cannabis use disorders Methamphetamine abuse Nicotine dependence Plan: -At this time will continue following patient as he is being treated medically for withdrawals and overdose to see if patient requires inpt psych hospitalization. -Delirium precautions recommended with patient including - avoiding use of narcotics and CIRCUITRY NEGATIVE INSPECTOR sedatives, limit anticholinergic medications when possible, frequent re-orientation, minimize use of restraints, open window shades during the day and close them at night -Would recommend the following medication changes/additions: continue with seroquel, 200 mg qhs + 100 mg daily for mood stabilization/psychosis/sleep. increase Effexor 150 mg daily for mood/anxiety. Buspar 20 mg tid prn for anxiety. Please try and minimize opiates or BZD as this will likely make patients confusion/delirium worst. -CIWA protocol with prn ativan as needed for etoh w/d sx. -Continue 1:1 sitter for safety -spoke with nurse and communicated plan. -Will continue to follow along -Please contact with any questions.
--- NOTE | 2022-01-27 16:33 | P.PN ---
Subjective Progress Note Date: 01/27/22 History of Present Illness Chief Complaint: Altered mental status overdose 36-year-old male with schizophrenia, hypertension, hepatitis C chronic Patient was brought in by a friend normally needs the patient having around. He decided to bring the patient to the hospital because he started to having some altered mental status and jerking movements. Patient is known to overdose on whatever substance he can get his hands on for which the friend grew concerned and decided to bring him to the hospital for evaluation. Patient friends premature that the patient has overdosed but he doesn't know which medicine substance he thinks it could be [id number]. Patient initially was agitated he was given high doses of Ativan with no much benefit eventually he was intubated and sedated. Patient at this time unable to provide any meaningful history Blood work showed normal CBC, elevated ACL T patient known to have chronic hepatitis C Alcohol level was 62 Urine drug screen was positive for meth, TCA, marijuana EKG showed no acute changes Brain CT no acute intracranial pathology Chest x-ray no acute pathology Interval history: Patient seen and examined at bedside. Patient is more awake and alert today he is alert oriented 2. His currently off restraints. Possible transfer out of the ICU today. Objective - Vital Signs Vital signs: Vital Signs Temp 99.2 F 01/27/22 08:00 Pulse 62 01/27/22 15:00 Resp 19 01/27/22 15:16 BP 100/69 01/27/22 15:00 Pulse Ox 94 L 01/27/22 15:00 Intake & Output 01/26/22 01/27/22 01/27/22 18:59 06:59 18:59 Intake Total 1320 1440 1240 Output Total 1715 1150 1250 Balance -395 290 -10 Weight 86.5 kg 86.5 kg Intake: IV 1320 1440 840 Sodium Chloride 0.9% 1, 1320 1440 840 000 ml @ 120 mls/hr IV . Q8H20M [facility] Rx#:[id number] Oral 400 Output: Urine 1715 1150 1250 Other: Voiding Method External Catheter Urinal Urinal # Voids 1 1 - Exam General: non toxic, no distress, appears older than his stated age Derm: warm, dry Head: atraumatic, normocephalic, symmetric Eyes: EOMI, no lid lag, anicteric sclera Mouth: no lip lesion, mucus membranes moist Cardiovascular: S1S2 reg, no murmur, positive posterior tibial pulse bilateral, Lungs: CTA bilateral, no rhonchi, no rales , no accessory muscle use Abdominal: soft, nontender to palpation, no guarding, no appreciable organomegaly Ext: no gross muscle atrophy, no edema, no contractures Neuro: Alert and oriented x2. CN II-XI grossly intact, no focal neuro deficits - Labs CBC & Chem 7: 01/27/22 05:37 01/27/22 05:37 Labs: Abnormal Lab Results - Last 24 Hours (Table) 01/27/22 01/27/22 Range/Units 05:37 05:37 Plt Count 79 L (150-450) k/uL Chloride 111 H (98-107) mmol/L Carbon Dioxide 21 L (22-30) mmol/L BUN 7 L (9-20) mg/dL Creatinine 0.55 L (0.66-1.25) mg/dL Glucose 73 L (74-99) mg/dL AST 550 H (17-59) U/L ALT 742 H (4-49) U/L Albumin 3.2 L (3.5-5.0) g/dL Assessment and Plan Assessment: Assessment and plan: #Acute hypoxemic respiratory failure secondary to acute drug overdose -Resolved -including tricyclic antidepressants, methamphetamines, marijuana. Serum alcohol 62. -Patient extubated January 25 -He is on room air #Acute toxic metabolic encephalopathy -Secondary to drug overdose -Consult neurology #History of polysubstance abuse and previous overdoses requiring intubation mechanical ventilatory support. #Recent admission for aggressive, agitated and threatening behavior #History of schizoaffective disorder -Psychiatry following #History of polysubstance abuse including alcohol and cocaine and meth amphetamine. #Chronic and ongoing tobacco dependence #History of medication noncompliance
[2022-01-27] MEDS: QUEtiapine 200 MG TAB PO SCH (20:57)
[2022-01-27] MEDS: busPIRone HCl 10 MG TAB PO PRN (20:57)
[2022-01-28 07:00] LABS: HCT 35.1 % (39.0-53.0); HGB 11.7 gm/dL (13.0-17.5); MCH 29.7 pg (25.0-35.0); MCHC 33.4 g/dL (31.0-37.0); MCV 88.8 fL (80.0-100.0); Mean Platelet Volume 9.1; RBC 3.96 m/uL (4.30-5.90); RDW 13.6 % (11.5-15.5); WBC 3.1 k/uL (3.8-10.6)
[2022-01-28 07:03] LABS: Platelet Count 143 k/uL (150-450)
[2022-01-28 09:00] LABS: Eosinophils # (M) 0.28 k/uL (0-0.7); Lymphocytes # (M) 1.18 k/uL (1.0-4.8); Monocytes # (M) 0.25 k/uL (0-1.0); Neutrophils % (M) 45 %; Nucleated Red Blood Cells 0 /100 WBC (0-0); Total Cells Counted 100
[2022-01-28] MEDS: HEPARIN SODIUM,PORCINE/PF 5,000 UNIT/0.5 ML SYRINGE SQ SCH ×3 (09:01→23:20)
[2022-01-28] MEDS: VENLAFAXINE HCL ER 150 MG CAP PO SCH (09:01)
[2022-01-28] MEDS: QUEtiapine 100 MG TAB PO SCH (09:01)
[2022-01-28 09:02] LABS: RBC Morphology Normal
[2022-01-28 10:08] LABS: African American GFR (CKD) 146.7 (60.0-200.0); Albumin 3.3 g/dL (3.8-4.9); Albumin/Globulin Ratio 0.99 (1.60-3.17); Anion Gap 9.7 mmol/L (10.00-18.00); BUN/Creat Ratio 13.61 Ratio (12.00-20.00); Blood Urea Nitrogen 8.8 mg/dL (9.0-27.0); Calcium 8.8 mg/dL (8.7-10.3); Carbon Dioxide 22.1 mmol/L (20.0-27.5); Globulin 3.4 g/dL (1.6-3.3); Magnesium 1.8 mg/dL (1.5-2.4); Non-African American GFR(CKD) 126.6 (60.0-200.0); Total Bilirubin 0.3 mg/dL (0.30-1.20); Total Protein 6.7 g/dL (6.2-8.2)
--- NOTE | 2022-01-28 10:56 | US ---
EXAMINATION TYPE: US liver DATE OF EXAM: 01/28/2022 COMPARISON: US liver 01/22/2021 CLINICAL HISTORY: elevated LFTs. Elevated LFT's, drug overdose EXAM MEASUREMENTS: Liver Length: 17.2 cm Gallbladder Wall: 0.3 cm CBD: 0.4 cm Right Kidney: 11.9 x 5.2 x 5.5 cm Pancreas: Obscured by bowel gas Liver: Visualized portions show coarse echotexture, similar findings to priors US Gallbladder: Contracted, pt not NPO- ordered STAT Evidence for sonographic Avendano's sign: No CBD: wnl Right Kidney: wnl, lower pole gassed out No evident ascites. IMPRESSION: Exam is limited. Correlate for possible hepatic steatosis or hepatocellular disease, live r may be borderline enlarged. Gallbladder appears contracted which may be due to or perforation.
--- NOTE | 2022-01-28 14:17 | P.PN ---
Subjective Progress Note Date: 01/28/22 History of Present Illness Chief Complaint: Altered mental status overdose 36-year-old male with schizophrenia, hypertension, hepatitis C chronic Patient was brought in by a friend normally needs the patient having around. He decided to bring the patient to the hospital because he started to having some altered mental status and jerking movements. Patient is known to overdose on whatever substance he can get his hands on for which the friend grew concerned and decided to bring him to the hospital for evaluation. Patient friends premature that the patient has overdosed but he doesn't know which medicine substance he thinks it could be [id number]. Patient initially was agitated he was given high doses of Ativan with no much benefit eventually he was intubated and sedated. Patient at this time unable to provide any meaningful history Blood work showed normal CBC, elevated ACL T patient known to have chronic hepatitis C Alcohol level was 62 Urine drug screen was positive for meth, TCA, marijuana EKG showed no acute changes Brain CT no acute intracranial pathology Chest x-ray no acute pathology Interval history: Patient seen and examined at bedside. Patient is more awake and alert today he is alert oriented 2. Patient transferred out of ICU overnight. He denies any chest pain or shortness of breath. Objective - Vital Signs Vital signs: Vital Signs Temp 98.1 F 01/28/22 11:07 Pulse 79 01/28/22 11:07 Resp 18 01/28/22 11:07 BP 102/63 01/28/22 11:07 Pulse Ox 95 01/28/22 11:07 Intake & Output 01/27/22 01/28/22 01/28/22 18:59 06:59 18:59 Intake Total 1240 590 Output Total 1250 Balance -10 590 Weight 86.5 kg Intake: IV 840 Sodium Chloride 0.9% 1, 840 000 ml @ 120 mls/hr IV . [id number] [facility] Rx#:[id number] Oral 400 590 Output: Urine 1250 Other: Voiding Method Urinal Urinal Urinal # Voids 1 1 - Exam General: non toxic, no distress, appears older than his stated age Derm: warm, dry Head: atraumatic, normocephalic, symmetric Eyes: EOMI, no lid lag, anicteric sclera Mouth: no lip lesion, mucus membranes moist Cardiovascular: S1S2 reg, no murmur, positive posterior tibial pulse bilateral, Lungs: CTA bilateral, no rhonchi, no rales , no accessory muscle use Abdominal: soft, nontender to palpation, no guarding, no appreciable organomegaly Ext: no gross muscle atrophy, no edema, no contractures Neuro: Alert and oriented x2. CN II-XI grossly intact, no focal neuro deficits - Labs CBC & Chem 7: 01/28/22 05:50 01/28/22 05:50 Labs: Abnormal Lab Results - Last 24 Hours (Table) 01/28/22 01/28/22 Range/Units 05:50 05:50 WBC 3.1 L (3.8-10.6) k/uL RBC 3.96 L (4.30-5.90) m/uL Hgb 11.7 L (13.0-17.5) gm/dL Hct 35.1 L (39.0-53.0) % Plt Count 143 L D (150-450) k/uL Anion Gap 9.70 L (10.00-18.00) mmol/L BUN 8.8 L (9.0-27.0) mg/dL Glucose 124 H (70-110) mg/dL Albumin 3.3 L (3.8-4.9) g/dL Globulin 3.4 H (1.6-3.3) g/dL Albumin/Globulin Ratio 0.99 L (1.60-3.17) g/dL Assessment and Plan Assessment: Assessment and plan: #Acute hypoxemic respiratory failure secondary to acute drug overdose -Resolved -including tricyclic antidepressants, methamphetamines, marijuana. Serum alcohol 62. -Patient extubated January 25 -He is on room air #Acute toxic metabolic encephalopathy -Secondary to drug overdose -Consult neurology #History of polysubstance abuse and previous overdoses requiring intubation mechanical ventilatory support. #Recent admission for aggressive, agitated and threatening behavior #History of schizoaffective disorder -Psychiatry following #Elevated LFTs -LFTs are trending down -Underlying history of hepatitis C -Liver ultrasound ordered -Discussed with psychiatry since patient is started on Effexor and it is potentially can cause hepatotoxicity #History of polysubstance abuse including alcohol and cocaine and me thamphetamine. #Chronic and ongoing tobacco dependence #History of medication noncompliance
--- NOTE | 2022-01-28 15:31 | P.PN ---
Progress Note - Text Progress Note Date: 01/28/22 Interval History: Patient was seen today for psychiatric follow-up regarding patient's delirium. Patient required 1 dose of Prolixin prn one day ago. Patients nurse claims that patient has been doing a bit better however sometimes difficult to redirect. Patient was seen at the bedside and has a one-to-one sitter at his side. He continues to slur his words and have difficulty opening his eyes. He continues to be mildly confused at this time however is more agreeable and less irritable with information writer. He claims that he is watching a movie and states that "I don't know it's just the funny one". He claims that he did not overdose on anything before coming in the hospital and states that he was only taking his Suboxone. She is agreeable to continue taking his medications as prescribed. He states that he is sleeping well at night however is finding it difficult to have energy during the day and appears to be fairly drowsy. He continues to have garbled speech. Hygiene and grooming gradually improving. Continues to have chronically minimal insight and judgment. Concentration improving. He is alert and oriented 3 today. He is denying any Ah or Vh and denying any SI or HI. Mental Status Exam: General Appearance: Patient appears to be more alert today, older than stated ag e is still confused, improving mildly. Patient appears to have improving hygiene and grooming, improving midlly. unshaven Behavior: Patient is laying in bed, confused, improving mildly. less lethargic today Speech: Patient's speech is difficult to comprehend. garbled, improving midlly Mood/Affect: claims his mood is "ok" and affect is constricted Suicidality/Homicidality: denies Perceptions: denies Though content/process: improving attention. More logical today, no paranoia Memory and concentration: AOX3, confused, proving, poor attention span Judgment and insight: Chronically poor, improving mildly IMPRESSIONS: Delirium likely multiple etiologies including withdrawal from substances, medications including benzodiazepines and anesthetic medications, improving Schizoaffective disorder, depressive type drug overdose Alcohol use disorder Cannabis use disorders Methamphetamine abuse Nicotine dependence Plan: -At this time will continue following patient as he is being treated medically for withdrawals and overdose to see if patient requires inpt psych hospitalization. Patient is improving gradually in terms of his delirium and is restarted and taking his psych meds. If patient continues to improve in the next few days then likely we can sign off and patient can continue to follow up with his [facility] team for Mh care. -Delirium precautions recommended with patient including - avoiding use of narcotics and DIRECTOR DANCE sedatives, limit anticholinergic medications when possible, frequent re-orientation, minimize use of restraints, open window shades during the day and close them at night -Would recommend the following medication changes/additions: decreased seroquel, 200 mg qhs + 50 mg daily for mood stabilization/psychosis/sleep. effexor 150 mg daily for mood/anxiety. Buspar 20 mg tid prn for anxiety. Please try and minimize opiates or BZD as this will likely make patients confusion/delirium worst. -CIWA protocol with prn ativan as needed for etoh w/d sx. -Continue 1:1 sitter for safety -spoke with nurse and communicated plan. -Will continue to follow along -Please contact with any questions.
[2022-01-28 18:02] LABS: Hepatitis A Antibody IgM Nonreactive (Nonreactive); Hepatitis B Core IgM Nonreactive (Nonreactive); Hepatitis B Surface Antigen Nonreactive (Nonreactive); Hepatitis C IgG Antibody Reactive (Nonreactive)
[2022-01-28] MEDS: LORazepam 2 MG/ML INJ IV PRN ×2 (19:27→23:15)
[2022-01-28] MEDS: busPIRone HCl 10 MG TAB PO PRN (19:27)
[2022-01-28] MEDS: QUEtiapine 200 MG TAB PO SCH (21:51)
[2022-01-29] MEDS: flUPHENAZine 2.5 MG/ML (MDV) 10 ML VIAL IM PRN (01:40)
[2022-01-29] MEDS: LORazepam 2 MG/ML INJ IV PRN (05:30)
[2022-01-29] MEDS: HEPARIN SODIUM,PORCINE/PF 5,000 UNIT/0.5 ML SYRINGE SQ SCH ×3 (06:59→22:08)
[2022-01-29] MEDS: QUEtiapine 50 MG TAB PO SCH (07:00)
[2022-01-29] MEDS: VENLAFAXINE HCL ER 150 MG CAP PO SCH (07:00)
[2022-01-29] MEDS: busPIRone HCl 10 MG TAB PO PRN ×2 (07:00→20:02)
[2022-01-29 11:22] LABS: Basophils # (A) 0.03 X 10*3/uL (0.00-0.10); Basophils % (A) 0.7 %; Eosinophils # (A) 0.36 X 10*3/uL (0.04-0.35); Eosinophils % (A) 8.6 %; HCT 36.7 % (39.6-50.0); Immature Grans, Automated 0.2 %; Lymphocytes # (A) 1.58 X 10*3/uL (0.90-5.00); Lymphocytes % (A) 37.7 %; MCH 28.3 pg (27.0-32.0); MCHC 32.7 g/dL (32.0-37.0); MCV 86.6 fL (80.0-97.0); Mean Platelet Volume 12.4 fL (9.5-12.2); Monocytes # (A) 0.47 X 10*3/uL (0.20-1.00); Monocytes % (A) 11.2 %; NRBC Per 100 WBC 0 /100 WBCS (0.0-0.0); Neutrophils # (A) 1.74 X 10*3/uL (1.80-7.70); Neutrophils % (A) 41.6 %; Platelet Count 169 X 10*3/uL (140-440); RBC 4.24 X 10*6/uL (4.40-5.60); RDW 13.3 % (11.5-14.5); WBC 4.19 X 10*3/uL (4.50-10.00)
[2022-01-29 11:51] LABS: African American GFR (CKD) 141.2 (60.0-200.0); Albumin 3.5 g/dL (3.8-4.9); Albumin/Globulin Ratio 0.92 (1.60-3.17); BUN/Creat Ratio 15.58 Ratio (12.00-20.00); Calcium 9.2 mg/dL (8.7-10.3); Carbon Dioxide 21.3 mmol/L (20.0-27.5); Globulin 3.8 g/dL (1.6-3.3); Non-African American GFR(CKD) 121.8 (60.0-200.0); Potassium 4.1 mmol/L (3.5-5.5); Total Bilirubin 0.4 mg/dL (0.30-1.20); Total Protein 7.3 g/dL (6.2-8.2)
--- NOTE | 2022-01-29 13:07 | P.PN ---
Progress Note - Text Progress Note Date: 01/29/22 Interval History: Patient was seen today for psychiatric follow-up regarding patient's delirium. Required Ativan at 530 and prolixin at 140. Patient was very drowsy and as a result, it was difficult to do a full interview. He does not know the date today. Per sitter, patient has been "acting goofy" Mental Status Exam: General Appearance: shirtless in bed, minimal engagement due to drowsiness, some jerking movements present Behavior: very lethargic, minimal engagement Speech: Patient's speech is difficult to comprehend. garbled Mood/Affect: blunted Suicidality/Homicidality: could not assess Perceptions: no RIS Though content/process: could not assess Memory and concentration: confused, does not know date Judgment and insight: Chronically poor IMPRESSIONS: Delirium likely multiple etiologies including withdrawal from substances, medications including benzodiazepines and anesthetic medications Schizoaffective disorder, depressive type drug overdose Alcohol use disorder Cannabis use disorders Methamphetamine abuse Nicotine dependence Plan: -At this time will continue following patient as he is being treated medically for withdrawals and overdose to see if patient requires inpt psych hospitalization. 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 effexor DECREASE to 75 mg daily x1-2 days then d/c. This is being done due to concern of effexor causing increased LFTs. Later on will consider restarting effexor once LFTs normalize or switching to diffirent antidepressant. Buspar 20 mg tid prn for anxiety. Please try and minimize opiates or BZD as this will likely make patients confusion/delirium worse. -CIWA protocol with prn ativan as needed for etoh w/d sx. -Continue 1:1 sitter for safety -Will continue to follow along -Please contact with any questions.
--- NOTE | 2022-01-29 16:19 | P.PN ---
Subjective Progress Note Date: 01/29/22 History of Present Illness Chief Complaint: Altered mental status overdose 36-year-old male with schizophrenia, hypertension, hepatitis C chronic Patient was brought in by a friend normally needs the patient having around. He decided to bring the patient to the hospital because he started to having some altered mental status and jerking movements. Patient is known to overdose on whatever substance he can get his hands on for which the friend grew concerned and decided to bring him to the hospital for evaluation. Patient friends premature that the patient has overdosed but he doesn't know which medicine substance he thinks it could be [id number]. Patient initially was agitated he was given high doses of Ativan with no much benefit eventually he was intubated and sedated. Patient at this time unable to provide any meaningful history Blood work showed normal CBC, elevated ACL T patient known to have chronic hepatitis C Alcohol level was 62 Urine drug screen was positive for meth, TCA, marijuana EKG showed no acute changes Brain CT no acute intracranial pathology Chest x-ray no acute pathology Interval history: Patient seen and examined at bedside. Patient was agitated earlier and required IV Prolixin. LFTs continued to trend up discussed with psychiatry to change his Effexor dose. Objective - Vital Signs Vital signs: Vital Signs Temp 97.9 F 01/29/22 13:51 Pulse 62 01/29/22 13:51 Resp 16 01/29/22 13:51 BP 109/70 01/29/22 13:51 Pulse Ox 95 01/29/22 13:51 Intake & Output 01/28/22 01/29/22 01/29/22 18:59 06:59 18:59 Intake Total 600 Balance 600 Weight 86.5 kg Intake: Oral 600 Other: Voiding Method Urinal Urinal Urinal # Voids 3 # Bowel Movements 1 - Exam General: non toxic, no distress, appears older than his stated age Derm: warm, dry Head: atraumatic, normocephalic, symmetric Eyes: EOMI, no lid lag, anicteric sclera Mouth: no lip lesion, mucus membranes moist Cardiovascular: S1S2 reg, no murmur, positive posterior tibial pulse bilateral, Lungs: CTA bilateral, no rhonchi, no rales , no accessory muscle use Abdominal: soft, nontender to palpation, no guarding, no appreciable organomegaly Ext: no gross muscle atrophy, no edema, no contractures Neuro: Alert and oriented x2. CN II-XI grossly intact, no focal neuro deficits - Labs CBC & Chem 7: 01/29/22 07:08 01/29/22 07:08 Labs: Abnormal Lab Results - Last 24 Hours (Table) 01/28/22 01/28/22 01/29/22 Range/Units 05:50 05:50 07:08 WBC 4.19 L (4.50-10.00) X 10*3/uL RBC 4.24 L (4.40-5.60) X 10*6/uL Hgb 12.0 L (13.0-17.0) g/dL Hct 36.7 L (39.6-50.0) % MPV 12.4 H (9.5-12.2) fL Neutrophils # 1.74 L (1.80-7.70) X 10*3/uL Eosinophils # 0.36 H (0.04-0.35) X 10*3/uL AST 657 H (14-35) U/L ALT 895 H (10-49) U/L Albumin (3.8-4.9) g/dL Globulin (1.6-3.3) g/dL Albumin/Globulin Ratio (1.60-3.17) g/dL Hep C IgG Ab Reactive A (Nonreactive) 01/29/22 Range/Units 07:08 WBC (4.50-10.00) X 10*3/uL RBC (4.40-5.60) X 10*6/uL Hgb (13.0-17.0) g/dL Hct (39.6-50.0) % MPV (9.5-12.2) fL Neutrophils # (1.80-7.70) X 10*3/uL Eosinophils # (0.04-0.35) X 10*3/uL AST 1027 H (14-35) U/L ALT 1231 H (10-49) U/L Albumin 3.5 L (3.8-4.9) g/dL Globulin 3.8 H (1.6-3.3) g/dL Albumin/Globulin Ratio 0.92 L (1.60-3.17) g/dL Hep C IgG Ab (Nonreactive) Assessment and Plan Assessment: Assessment and plan: #Acute hypoxemic respiratory failure secondary to acute drug overdose -Resolved -including tricyclic antidepressants, methamphetamines, marijuana. Serum alcohol 62. -Patient extubated January 25 -He is on room air #Acute toxic metabolic encephalopathy -Secondary to drug overdose -Consult neurology #History of polysubstance abuse and previous overdoses requiring intubation mechanical ventilatory support. #Recent admission for aggressive, agitated and threatening behavior #History of schizoaffective disorder -Psychiatry following #Elevated LFTs -LFTs trending up -Underlying history of hepatitis C -Liver ultrasound showed evidence of liver disease -Discussed with psychiatry 6 her dose has been decreased to 75 mg daily. #History of polysubstance abuse including alcohol and cocaine and methamphetamine. #Chronic and ongoing tobacco dependence #History of medication noncompliance
[2022-01-29] MEDS: QUEtiapine 200 MG TAB PO SCH (20:02)
[2022-01-30] MEDS: LORazepam 2 MG/ML INJ IV PRN (01:52)
[2022-01-30] MEDS: QUEtiapine 50 MG TAB PO SCH (07:21)
[2022-01-30] MEDS: HEPARIN SODIUM,PORCINE/PF 5,000 UNIT/0.5 ML SYRINGE SQ SCH ×2 (07:22→17:56)
[2022-01-30] MEDS: VENLAFAXINE HCL ER 75 MG CAP PO SCH (07:22)
[2022-01-30 11:43] LABS: Basophils # (A) 0.03 X 10*3/uL (0.00-0.10); Basophils % (A) 0.7 %; Eosinophils # (A) 0.35 X 10*3/uL (0.04-0.35); Eosinophils % (A) 8.6 %; HCT 37.1 % (39.6-50.0); HGB 11.8 g/dL (13.0-17.0); Immature Grans, Automated 0.2 %; Lymphocytes # (A) 1.55 X 10*3/uL (0.90-5.00); Lymphocytes % (A) 38.1 %; MCH 27.7 pg (27.0-32.0); MCHC 31.8 g/dL (32.0-37.0); MCV 87.1 fL (80.0-97.0); Mean Platelet Volume 11.6 fL (9.5-12.2); Monocytes # (A) 0.57 X 10*3/uL (0.20-1.00); NRBC Per 100 WBC 0 /100 WBCS (0.0-0.0); Neutrophils # (A) 1.56 X 10*3/uL (1.80-7.70); Neutrophils % (A) 38.4 %; Platelet Count 161 X 10*3/uL (140-440); RBC 4.26 X 10*6/uL (4.40-5.60); RDW 13.2 % (11.5-14.5); WBC 4.07 X 10*3/uL (4.50-10.00)
[2022-01-30 12:05] LABS: African American GFR (CKD) 139.4 (60.0-200.0); Albumin 3.5 g/dL (3.8-4.9); Albumin/Globulin Ratio 0.93 (1.60-3.17); Anion Gap 9.1 mmol/L (10.00-18.00); BUN/Creat Ratio 14.54 Ratio (12.00-20.00); Blood Urea Nitrogen 10.6 mg/dL (9.0-27.0); Calcium 9.3 mg/dL (8.7-10.3); Carbon Dioxide 24.6 mmol/L (20.0-27.5); Globulin 3.7 g/dL (1.6-3.3); Non-African American GFR(CKD) 120.2 (60.0-200.0); Potassium 4.1 mmol/L (3.5-5.5); Total Bilirubin 0.3 mg/dL (0.30-1.20); Total Protein 7.2 g/dL (6.2-8.2)
[2022-01-30] MEDS ORDERED: LORazepam 2 MG/ML INJ IV PRN (12:05)
--- NOTE | 2022-01-30 15:48 | P.PN ---
Subjective Progress Note Date: 01/30/22 History of Present Illness Chief Complaint: Altered mental status overdose 36-year-old male with schizophrenia, hypertension, hepatitis C chronic Patient was brought in by a friend normally needs the patient having around. He decided to bring the patient to the hospital because he started to having some altered mental status and jerking movements. Patient is known to overdose on whatever substance he can get his hands on for which the friend grew concerned and decided to bring him to the hospital for evaluation. Patient friends premature that the patient has overdosed but he doesn't know which medicine substance he thinks it could be [id number]. Patient initially was agitated he was given high doses of Ativan with no much benefit eventually he was intubated and sedated. Patient at this time unable to provide any meaningful history Blood work showed normal CBC, elevated ACL T patient known to have chronic hepatitis C Alcohol level was 62 Urine drug screen was positive for meth, TCA, marijuana EKG showed no acute changes Brain CT no acute intracranial pathology Chest x-ray no acute pathology Interval history: Patient seen and examined at bedside. Patient is alert oriented 2. Acute reported changes overnight. His list agitated and confused Objective - Vital Signs Vital signs: Vital Signs Temp 97.5 F L 01/30/22 04:41 Pulse 65 01/30/22 04:41 Resp 18 01/29/22 19:30 BP 99/62 01/30/22 04:41 Pulse Ox 96 01/30/22 04:41 Intake & Output 01/29/22 01/30/22 01/30/22 17:59 06:59 18:59 Intake Total Balance Weight Intake: Oral Other: Voiding Method Toilet Urinal # Voids 1 - Exam General: non toxic, no distress, appears older than his stated age Derm: warm, dry Head: atraumatic, normocephalic, symmetric Eyes: EOMI, no lid lag, anicteric sclera Mouth: no lip lesion, mucus membranes moist Cardiovascular: S1S2 reg, no murmur, positive posterior tibial pulse bilateral, Lungs: CTA bilateral, no rhonchi, no rales , no accessory muscle use Abdominal: soft, nontender to palpation, no guarding, no appreciable organomegaly Ext: no gross muscle atrophy, no edema, no contractures Neuro: Alert and oriented x2. CN II-XI grossly intact, no focal neuro deficits - Labs CBC & Chem 7: 01/30/22 07:09 01/30/22 07:09 Labs: Abnormal Lab Results - Last 24 Hours (Table) 01/30/22 01/30/22 Range/Units 07:09 07:09 WBC 4.07 L (4.50-10.00) X 10*3/uL RBC 4.26 L (4.40-5.60) X 10*6/uL Hgb 11.8 L (13.0-17.0) g/dL Hct 37.1 L (39.6-50.0) % MCHC 31.8 L (32.0-37.0) g/dL Neutrophils # 1.56 L (1.80-7.70) X 10*3/uL Anion Gap 9.10 L (10.00-18.00) mmol/L Glucose 130 H (70-110) mg/dL Albumin 3.5 L (3.8-4.9) g/dL Globulin 3.7 H (1.6-3.3) g/dL Albumin/Globulin Ratio 0.93 L (1.60-3.17) g/dL Assessment and Plan Assessment: Assessment and plan: #Acute hypoxemic respiratory failure secondary to acute drug overdose -Resolved -including tricyclic antidepressants, methamphetamines, marijuana. Serum alcohol 62. -Patient extubated January 25 -He is on room air #Acute toxic metabolic encephalopathy -Secondary to drug overdose -Consult neurology #History of polysubstance abuse and previous overdoses requiring intubation mechanical ventilatory support. #Recent admission for aggressive, agitated and threatening behavior #History of schizoaffective disorder -Psychiatry following #Elevated LFTs -LFTs trending up -Underlying history of hepatitis C -Liver ultrasound showed evidence of liver disease -Discussed with psychiatry, changed Effexor dose to 75 mg daily. #History of polysubstance abuse including alcohol and cocaine and methamphetamine. #Chronic and ongoing tobacco dependence #History of medication noncompliance
--- NOTE | 2022-01-30 18:06 | P.PN ---
Progress Note - Text Interval History: Patient was seen today for psychiatric follow-up regarding patient's delirium. No Ativan or Prolixin was required over the last 24 hours. Per nursing, patient has significantly improved, he is more awake, he is less agitated. Patient states that he is doing "good" he denies hallucinations, suicidal thoughts, homicidal thoughts, and medication side effects. He is able to identify his name, but he states that it is 02/12/2022. He states that he is at [facility], but states that he has in [place]. Mental Status Exam: General Appearance: 36-year-old male who appears older than stated age, seated on his bed and engaging with interviewer, in no acute distress Behavior: Calm and cooperative Speech: Difficult to comprehend at times, but his speech has improved from yesterday Mood/Affect: "Good", constricted, affect is significantly improved compared to yesterday Suicidality/Homicidality: Denies Perceptions: Denies Though content/process: No delusions Memory and concentration: AO 1-2, his orientation seems to have improved from yesterday Judgment and insight: Chronically poor IMPRESSIONS: Delirium likely multiple etiologies including withdrawal from substances, medications including benzodiazepines and anesthetic medications, appears to be improving today Schizoaffective disorder, depressive type drug overdose Alcohol use disorder Cannabis use disorders Methamphetamine abuse Nicotine dependence Plan: -At this time will continue following patient as he is being treated medically for withdrawals and overdose to see if patient requires inpt psych hospitalization. 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 effexor DECREASE to 75 mg daily x1-2 days then d/c. Please monitor for SNRI discontinuation Sx including sharp/shooting pains, dizziness, h/a, fatigue, chills, muscle aches. This is being done due to concern of effexor causing increased LFTs. Later on will consider restarting effexor once LFTs normalize or switching to diffirent antidepressant. Buspar 20 mg tid prn for anxiety. Please try and minimize opiates or BZD as this will likely make patients confusion/delirium worse. -CIWA protocol with prn ativan as needed for etoh w/d sx - decreased librium to 50 mg tid and plan to taper off -Continue 1:1 sitter for safety -Will continue to follow along -Please contact with any questions.
--- NOTE | 2022-01-30 18:15 | P.PN ---
Subjective Progress Note Date: 01/27/22 Patient was seen for a follow-up. Patient is more alert and awake. Still mild to moderately encephalopathic, mumbles. He is laying comfortably in the bed. Patient denies headache. Patient admitted that he took meth 2 weeks ago. It was laced. He drinks alcohol some. Patient is downgraded to MedSur. He is sedated. He has received 2 mg of Ativan. Also receiving Seroquel 50 mg. Patient apparently was pulling everything, agitated when he was awake. Sitter is also present. Patient not able to provide any history. Objective - Vital Signs Vital signs: Vital Signs Temp 97.4 F L 01/30/22 15:00 Pulse 74 01/30/22 15:00 Resp 16 01/30/22 15:00 BP 97/61 01/30/22 15:00 Pulse Ox 97 01/30/22 15:00 Intake & Output 01/29/22 01/30/22 01/30/22 17:59 06:59 18:59 Intake Total Balance Weight Intake: Oral Other: Voiding Method Toilet Urinal # Voids 1 - Exam Patient is more alert and awake. He still mildly to moderately encephalopathic. Patient knows it is January and the year is 2021. He knows he is in [facility] in [facility] [facility]. He knows name of the current president. Speech is more clear. No aphasia. Pupils are equal, round and reacting. Gaze is midline. No facial droopiness. Oculocephalics are present. Visual peña appears full on confrontation. Patient's tone is equal in the arms and legs. Muscle strength is normal in the arms and legs. Reflexes are somewhat brisk, but symmetric and plantars are downgoing. - Labs CBC & Chem 7: 01/30/22 07:09 01/30/22 07:09 Labs: Abnormal Lab Results - Last 24 Hours (Table) 01/30/22 01/30/22 Range/Units 07:09 07:09 WBC 4.07 L (4.50-10.00) X 10*3/uL RBC 4.26 L (4.40-5.60) X 10*6/uL Hgb 11.8 L (13.0-17.0) g/dL Hct 37.1 L (39.6-50.0) % MCHC 31.8 L (32.0-37.0) g/dL Neutrophils # 1.56 L (1.80-7.70) X 10*3/uL Anion Gap 9.10 L (10.00-18.00) mmol/L Glucose 130 H (70-110) mg/dL Albumin 3.5 L (3.8-4.9) g/dL Globulin 3.7 H (1.6-3.3) g/dL Albumin/Globulin Ratio 0.93 L (1.60-3.17) g/dL Assessment and Plan Assessment: * Altered mental status, likely due to delirium from drug overdose. At present patient has toxic metabolic encephalopathy. Patient has overdosed of unclear substances. Urine drug screen positive for tricyclics, methamphetamines and marijuana. Patient was also intoxicated with blood alcohol level of 62. * History of polysubstance abuse. * Schizoaffective disorder Plan: * Patient's encephalopathy is likely related to overdose on medications, possible alcohol withdrawal and perhaps related to medication (Ativan). Patient's examination is nonfocal. Patient's mentation has much improved. He is very well oriented today. No other neurological workup indicated. * Psychiatry following. Patient's dose of Seroquel is being adjusted. * Continue supportive care. Discussed with patient's nurse in detail. * Please call neurology if there is any further concerns.
[2022-01-30] MEDS: QUEtiapine 200 MG TAB PO SCH (21:25)
[2022-01-31] MEDS: busPIRone HCl 10 MG TAB PO PRN ×3 (00:55→23:38)
[2022-01-31] MEDS: HEPARIN SODIUM,PORCINE/PF 5,000 UNIT/0.5 ML SYRINGE SQ SCH ×4 (00:55→23:38)
[2022-01-31] MEDS: VENLAFAXINE HCL ER 75 MG CAP PO SCH (09:24)
[2022-01-31] MEDS: QUEtiapine 50 MG TAB PO SCH (09:26)
[2022-01-31 10:55] LABS: Basophils # (A) 0.03 X 10*3/uL (0.00-0.10); Basophils % (A) 0.7 %; Eosinophils % (A) 9.7 %; HCT 40.7 % (39.6-50.0); HGB 12.9 g/dL (13.0-17.0); Immature Grans, Automated 0.2 %; Lymphocytes # (A) 2.03 X 10*3/uL (0.90-5.00); Lymphocytes % (A) 49.2 %; MCH 28.2 pg (27.0-32.0); MCHC 31.7 g/dL (32.0-37.0); MCV 88.9 fL (80.0-97.0); Mean Platelet Volume 11.9 fL (9.5-12.2); Monocytes % (A) 12.1 %; NRBC Per 100 WBC 0 /100 WBCS (0.0-0.0); Neutrophils # (A) 1.16 X 10*3/uL (1.80-7.70); Neutrophils % (A) 28.1 %; Platelet Count 157 X 10*3/uL (140-440); RBC 4.58 X 10*6/uL (4.40-5.60); RDW 13.4 % (11.5-14.5); WBC 4.13 X 10*3/uL (4.50-10.00)
[2022-01-31 11:17] LABS: African American GFR (CKD) 141.7 (60.0-200.0); Albumin 3.8 g/dL (3.8-4.9); Albumin/Globulin Ratio 0.93 (1.60-3.17); Anion Gap 8.8 mmol/L (10.00-18.00); BUN/Creat Ratio 17.14 Ratio (12.00-20.00); Calcium 9.6 mg/dL (8.7-10.3); Carbon Dioxide 25.2 mmol/L (20.0-27.5); Globulin 4.1 g/dL (1.6-3.3); Non-African American GFR(CKD) 122.3 (60.0-200.0); Potassium 4.6 mmol/L (3.5-5.5); Total Bilirubin 0.4 mg/dL (0.30-1.20); Total Protein 7.9 g/dL (6.2-8.2)
--- NOTE | 2022-01-31 14:27 | P.PN ---
Subjective Progress Note Date: 01/31/22 History of Present Illness Chief Complaint: Altered mental status overdose 36-year-old male with schizophrenia, hypertension, hepatitis C chronic Patient was brought in by a friend normally needs the patient having around. He decided to bring the patient to the hospital because he started to having some altered mental status and jerking movements. Patient is known to overdose on whatever substance he can get his hands on for which the friend grew concerned and decided to bring him to the hospital for evaluation. Patient friends premature that the patient has overdosed but he doesn't know which medicine substance he thinks it could be [id number]. Patient initially was agitated he was given high doses of Ativan with no much benefit eventually he was intubated and sedated. Patient at this time unable to provide any meaningful history Blood work showed normal CBC, elevated ACL T patient known to have chronic hepatitis C Alcohol level was 62 Urine drug screen was positive for meth, TCA, marijuana EKG showed no acute changes Brain CT no acute intracranial pathology Chest x-ray no acute pathology Interval history: Patient seen and examined at bedside. Patient is alert oriented 2. No acute reported changes overnight. He is calm and cooperative. Objective - Vital Signs Vital signs: Vital Signs Temp 98.2 F 01/31/22 11:49 Pulse 75 01/31/22 11:49 Resp 16 01/31/22 11:49 BP 99/61 01/31/22 11:49 Pulse Ox 95 01/31/22 11:49 Intake & Output 01/30/22 01/31/22 01/31/22 18:59 06:59 18:59 Other: Voiding Method Toilet Toilet Toilet Urinal Urinal Urinal # Voids 1 2 - Exam General: non toxic, no distress, appears older than his stated age Derm: warm, dry Head: atraumatic, normocephalic, symmetric Eyes: EOMI, no lid lag, anicteric sclera Mouth: no lip lesion, mucus membranes moist Cardiovascular: S1S2 reg, no murmur, positive posterior tibial pulse bilateral, Lungs: CTA bilateral, no rhonchi, no rales , no accessory muscle use Abdominal: soft, nontender to palpation, no guarding, no appreciable organomegaly Ext: no gross muscle atrophy, no edema, no contractures Neuro: Alert and oriented x2. CN II-XI grossly intact, no focal neuro deficits - Labs CBC & Chem 7: 01/31/22 07:41 01/31/22 07:41 Labs: Abnormal Lab Results - Last 24 Hours (Table) 01/30/22 01/31/22 01/31/22 Range/Units 07:09 07:41 07:41 WBC 4.13 L (4.50-10.00) X 10*3/uL Hgb 12.9 L (13.0-17.0) g/dL MCHC 31.7 L (32.0-37.0) g/dL Neutrophils # 1.16 L (1.80-7.70) X 10*3/uL Eosinophils # 0.40 H (0.04-0.35) X 10*3/uL Anion Gap 8.80 L (10.00-18.00) mmol/L AST 999 H (14-35) U/L ALT 1282 H (10-49) U/L Globulin 4.1 H (1.6-3.3) g/dL Albumin/Globulin Ratio 0.93 L (1.60-3.17) g/dL Assessment and Plan Assessment: Assessment and plan: #Acute hypoxemic respiratory failure secondary to acute drug overdose -Resolved -including tricyclic antidepressants, methamphetamines, marijuana. Serum alcohol 62. -Patient extubated January 25 -He is on room air #Acute toxic metabolic encephalopathy -Secondary to drug overdose -Neurology following #History of polysubstance abuse and previous overdoses requiring intubation mechanical ventilatory support. #Recent admission for aggressive, agitated and threatening behavior #History of schizoaffective disorder -Psychiatry following #Elevated LFTs -LFTs trending up -Underlying history of hepatitis C -Liver ultrasound showed evidence of liver disease -Discussed with psychiatry, changed Effexor dose to 75 mg daily. #History of polysubstance abuse including alcohol and cocaine and methamph etamine. #Chronic and ongoing tobacco dependence #History of medication noncompliance
--- NOTE | 2022-01-31 18:09 | P.PN ---
Subjective Progress Note Date: 01/31/22 Principal diagnosis: PRogress note He was seen today for review of his progress His delirium has largely resolved; he was resting testing testing he was resting comfortably in his bed. He recognized the purpose of my unit. I discussed with him with that he was prepared to separate his polysubstance abuse need for treatment. However, he did did not see the rationale for heme to accept treatment. He is housing instability was another factor involved. He seemed to be followed in the community for his medication management. Currently, he was not prepared to transition to another phase of his treatment. He did not want to determine how you need. I encouraged him to separate his treatment. However he was quite determine that he would not need further treatment. MEntal status: exam. he was fully lucid coherent not confused. No lability or guarded affect. NO delusions ; Poverty of content of speech. Plan for future was a major concern. fully oriented. [facility] judgment was still impaired. However, his decision making capacity remained intact. A:When he was seen by the mental health clinician. he was diagnosed as having polysubstance abuse :alcohol cannabis and methamphetamine. his polysubstance related deliruim was the final diagnosis. Plan;I did not see and is rationale to prepetition didn't call for his involuntary admission. However further to be choose to change his mind to be quite prepared to consider transferring him to the mental health unit. Delirium likely multiple etiologies including withdrawal from substances, Schizoaffective disorder is the comorbid psychiatric disorder. Objective - Vital Signs Vital signs: Vital Signs Temp 98.2 F 01/31/22 11:49 Pulse 75 01/31/22 11:49 Resp 16 01/31/22 11:49 BP 99/61 01/31/22 11:49 Pulse Ox 95 01/31/22 11:49 Intake & Output 01/30/22 01/31/22 01/31/22 18:59 06:59 18:59 Weight 79.5 kg Other: Voiding Method Toilet Toilet Toilet Urinal Urinal Urinal # Voids 1 2 1 - Labs CBC & Chem 7: 01/31/22 07:41 01/31/22 07:41 Labs: Abnormal Lab Results - Last 24 Hours (Table) 01/30/22 01/31/22 01/31/22 Range/Units 07:09 07:41 07:41 WBC 4.13 L (4.50-10.00) X 10*3/uL Hgb 12.9 L (13.0-17.0) g/dL MCHC 31.7 L (32.0-37.0) g/dL Neutrophils # 1.16 L (1.80-7.70) X 10*3/uL Eosinophils # 0.40 H (0.04-0.35) X 10*3/uL Anion Gap 8.80 L (10.00-18.00) mmol/L AST 999 H (14-35) U/L ALT 1282 H (10-49) U/L Globulin 4.1 H (1.6-3.3) g/dL Albumin/Globulin Ratio 0.93 L (1.60-3.17) g/dL
[2022-01-31 20:02] VITALS: RESP 18
[2022-01-31] MEDS: QUEtiapine 200 MG TAB PO SCH (21:15)
[2022-02-01 09:08] LABS: Basophils # (A) 0.03 X 10*3/uL (0.00-0.10); Basophils % (A) 0.8 %; Eosinophils # (A) 0.27 X 10*3/uL (0.04-0.35); Eosinophils % (A) 7.1 %; HCT 40.1 % (39.6-50.0); HGB 12.7 g/dL (13.0-17.0); Immature Grans, Automated 0.5 %; Lymphocytes # (A) 1.89 X 10*3/uL (0.90-5.00); Lymphocytes % (A) 49.6 %; MCH 27.8 pg (27.0-32.0); MCHC 31.7 g/dL (32.0-37.0); MCV 87.7 fL (80.0-97.0); Mean Platelet Volume 12.2 fL (9.5-12.2); Monocytes # (A) 0.51 X 10*3/uL (0.20-1.00); Monocytes % (A) 13.4 %; NRBC Per 100 WBC 0 /100 WBCS (0.0-0.0); Neutrophils # (A) 1.09 X 10*3/uL (1.80-7.70); Neutrophils % (A) 28.6 %; Platelet Count 162 X 10*3/uL (140-440); RBC 4.57 X 10*6/uL (4.40-5.60); RDW 13.4 % (11.5-14.5); WBC 3.81 X 10*3/uL (4.50-10.00)
[2022-02-01 09:32] LABS: African American GFR (CKD) 134.1 (60.0-200.0); Albumin 3.7 g/dL (3.8-4.9); Albumin/Globulin Ratio 0.93 (1.60-3.17); Anion Gap 9.6 mmol/L (10.00-18.00); BUN/Creat Ratio 18.13 Ratio (12.00-20.00); Blood Urea Nitrogen 14.5 mg/dL (9.0-27.0); Calcium 9.5 mg/dL (8.7-10.3); Carbon Dioxide 24.4 mmol/L (20.0-27.5); Non-African American GFR(CKD) 115.7 (60.0-200.0); Potassium 4.6 mmol/L (3.5-5.5); Total Bilirubin 0.3 mg/dL (0.30-1.20); Total Protein 7.7 g/dL (6.2-8.2)
[2022-02-01 11:44] VITALS: BP 108/70; PULSE 74; TEMP 97.9
[2022-02-01] MEDS: HEPARIN SODIUM,PORCINE/PF 5,000 UNIT/0.5 ML SYRINGE SQ SCH (12:29)
--- NOTE | 2022-02-01 12:34 | P.DS ---
Providers Date of admission: 01/24/22 19:59 Expected date of discharge: 02/01/22 Attending physician: Maday Blair MD Consults: 01/24/22 19:59 Consult Physician Routine Consulting Provider: Gamal Ruvalcaba Consult Reason/Comments: overdose Do you want consulting provider notified?: Already Contacted Consult Physician Stat Consulting Provider: Ranulfo Garcia Consult Reason/Comments: icu patient Do you want consulting provider notified?: Already Contacted 01/25/22 16:10 Consult Physician Routine Consulting Provider: Colin Burleson Consult Reason/Comments: Encephalopathy Do you want consulting provider notified?: Yes Primary care physician: Stated None Hospital Course: 36-year-old male with schizophrenia, hypertension, hepatitis C chronic who was brought in by a friend to the hospital because he started having some altered mental status and jerking movements. Patient is known to overdose on whatever substance he can get his hands on for which the friend grew concerned about and decided to bring him to the hospital for evaluation. Unclear what he overdosed with. Patient initially was agitated he was given high doses of Ativan with no much benefit eventually he was intubated and sedated. Patient at this time unable to provide any meaningful history Blood work showed normal CBC, elevated ACL T patient known to have chronic hepatitis C, Alcohol level was 62, Urine drug screen was positive for meth, TCA, marijuana. EKG showed no acute changes. Brain CT no acute intracranial pathology, Chest x-ray no acute pathology. He was seen by neurology, psychiatry. He was diagnosed with delirium from drug overdose as well as toxic metabolic encephalopathy. Due to high LFTs, effexor was discontinued by psych. LFTs were noted to be high in the past but now more elevated. Had a liver U/s which showed some steatosis. High LFTs could be sec to unknown drug overdose and hepatitis C. He will need close outpatient follow up. Need hepatology evaluation. He is currently doing well. Was seen by EPS nurse, was cleared to be discharged home. Will only be discharged on seroquel. Time for d/c 35 min Patient Condition at Discharge: Critical Plan - Discharge Summary Discharge Rx Participant: No New Discharge Prescriptions: New busPIRone HCl [Buspar] 20 mg PO TID PRN 30 Days #60 tab PRN Reason: Anxiety Continue QUEtiapine [SEROquel] 200 mg PO HS 30 Days tab Nicotine 14Mg/24Hr Patch [Habitrol] 1 patch TRANSDERM DAILY PRN PRN Reason: Nicotine Cravings Discontinued buPROPion HCL [buPROPion HCL XL] 450 mg PO DAILY Sublocade 300mg/1.5ml Xr Solution 300 mg SQ Q28D Propranolol [Inderal] 20 mg PO BID 30 Days tab busPIRone HCL 15 mg PO TID Venlafaxine HCl [Effexor XR] 150 mg PO DAILY polyethylene glycoL 3350 [Miralax] 17 gm PO DAILY PRN PRN Reason: Constipation Docusate [Colace] 100 mg PO BID PRN PRN Reason: Constipation Discharge Medication List QUEtiapine [SEROquel] 200 mg PO HS 30 Days tab 12/21/21 [Rx] Nicotine 14Mg/24Hr Patch [Habitrol] 1 patch TRANSDERM DAILY PRN 01/24/22 [History] busPIRone HCl [Buspar] 20 mg PO TID PRN 30 Days #60 tab 02/01/22 [Rx] Follow up Appointment(s)/Referral(s): None,Stated [Primary Care Provider] - 1-2 days Discharge/Stand Alone Forms: Outpatient Counseling
[2022-02-01] MEDS: QUEtiapine 50 MG TAB PO SCH (14:10)
== END 2022-02-01 14:58 | disposition home or self-care (01) | DRG 917 ==
LOC: EC 15:44 → 2SICU 19:59 → 5NMEDONC 01-27 18:23
PROVIDERS: ADMIT Internal Medicine; ATTEND Internal Medicine
PROC: 5A1935Z Respiratory Ventilation, Less than 24 Consecutive Hours (ICD-10-PCS; principal; 2022-01-24)
PROC: 0BH17EZ Insertion of Endotracheal Airway into Trachea, Via Natural or Artificial Opening (ICD-10-PCS; principal; 2022-01-24)
PROC: 0D9670Z Drainage of Stomach with Drainage Device, Via Natural or Artificial Opening (ICD-10-PCS; 2022-01-24)
DX: T43.012A Poisoning by tricyclic antidepressants, intentional self-harm, initial encounter (principal); G92.8 Other toxic encephalopathy; J96.01 Acute respiratory failure with hypoxia; J98.11 Atelectasis; F10.139 Alcohol abuse with withdrawal, unspecified; T43.622A Poisoning by amphetamines, intentional self-harm, initial encounter; T51.0X2A Toxic effect of ethanol, intentional self-harm, initial encounter; K76.9 Liver disease, unspecified; F10.129 Alcohol abuse with intoxication, unspecified; F15.10 Other stimulant abuse, uncomplicated; F41.9 Anxiety disorder, unspecified; Y90.3 Blood alcohol level of 60-79 mg/100 ml; M54.9 Dorsalgia, unspecified; K21.9 Gastro-esophageal reflux disease without esophagitis; B18.2 Chronic viral hepatitis C; F12.10 Cannabis abuse, uncomplicated; F17.210 Nicotine dependence, cigarettes, uncomplicated; F25.1 Schizoaffective disorder, depressive type; F11.11 Opioid abuse, in remission; I10 Essential (primary) hypertension; Z78.1 Physical restraint status; R45.1 Restlessness and agitation; Z79.899 Other long term (current) drug therapy; Z82.49 Family history of ischemic heart disease and other diseases of the circulatory system; Z91.14 Patient's other noncompliance with medication regimen; Z59.00 Homelessness unspecified; Z82.61 Family history of arthritis; Z91.51 Personal history of suicidal behavior
CPT/HCPCS: 31500; 36415; 36600; 70450; 71045; 76705; 80048; 80053; 80074; 80143; 80179; 80306; 80320; 81003; 82140; 82330; 82550; 82803; 82805; 83605; 83735; 83930; 84443; 84484; 85025; 85610; 85730; 93005; 94002; 94003; 96361; 96365; 96366; 96375; 96376; 99291

== ENCOUNTER 2022-03-02 08:16 | Inpatient (IN) | payer OTHER ==
[2022-03-02] MEDS ORDERED: SODIUM CHLORIDE 0.9% 2,000 ML IV STA (08:20)
--- NOTE | 2022-03-02 08:27 | ED ---
General Adult HPI - General Stated complaint: Drug Use Time Seen by Provider: 03/02/22 08:16 Source: patient, EMS, RN notes reviewed, old records reviewed Mode of arrival: EMS Limitations: altered mental status - History of Present Illness Initial comments: This is a 36-year-old male presents emergency Department from [facility] for altered mental status. Patient reportedly came back this morning was altered. Patient's found to be slightly confused. Be under the influence. Patient does admit that he did some marijuana that he does have a history of opiate and methamphetamine abuse. Patient has no specific complaints information is very limited given the patient's current condition. Patient has no obvious track broussard noted, no reports of vomiting, diarrhea noted fever. Patient is being very sweaty, having dysrhythmic movements. - Related Data Home Medications Medication Instructions Recorded Confirmed QUEtiapine [SEROquel] 600 mg PO HS 03/02/22 03/02/22 Venlafaxine HCl ER [Effexor Xr] 75 mg PO DAILY 03/02/22 03/02/22 buPROPion HCL [buPROPion HCL XL] 450 mg PO DAILY 03/02/22 03/02/22 busPIRone HCL 15 mg PO TID 03/02/22 03/02/22 Allergies Allergy/AdvReac Type Severity Reaction Status Date / Time No Known Allergies Allergy Verified 03/02/22 09:15 Review of Systems ROS Statement: Those systems with pertinent positive or pertinent negative responses have been documented in the HPI. ROS Other: All systems not noted in ROS Statement are negative. Past Medical History Past Medical History: No Reported History, Unable to Obtain, GERD/Reflux, Hypertension, Liver Disease Additional Past Medical History / Comment(s): Hepatitis C, DDD, back pain, bilateral carpel tunnel syndrome. He reports that he has heart disease that was found when he had kidney problems but he denies having a stress test or cardiac catheterization. History of Any Multi-Drug Resistant Organisms: None Reported MDRO Source:: unknown Past Surgical History: No Surgical Hx Reported, Unable to Obtain Additional Past Surgical History / Comment(s): Pt states he has had numerous "cysts" removed from where he injected IV drugs. Past Anesthesia/Blood Transfusion Reactions: No Reported Reaction, Unable to Obtain Additional Past Anesthesia/Blood Transfusion Reaction / Comment(s): Pt states he has never had surgery. Past Psychological History: Anxiety, Depression, Unable to Obtain Additional Psychological History / Comment(s): Pt currently at [employer]. He denies suicidal thoughts/plans recently. He has had multiple [facility] mental health admission. Smoking Status: Current every day smoker Past Alcohol Use History: Occasional Additional Past Alcohol Use History / Comment(s): Pt started smoking in 1994 and smokes 1ppd Past Drug Use History: Heroin, Marijuana, Methamphetamine Additional Drug Use History / Comment(s): Pt states he has used drugs in the past but none recently d/t no money. 12/15/21 UDS +marijuana - Past Family History Mother Family Medical History: Unable to Obtain, Rheumatoid Arthritis (RA) Additional Family Medical History / Comment(s): Mother is . Father Family Medical History: Coronary Artery Disease (CAD) General Exam Limitations: altered mental status General appearance: alert, in no apparent distress Head exam: Present: atraumatic, normocephalic, normal inspection Eye exam: Present: normal appearance, PERRL, EOMI. Absent: scleral icterus, conjunctival injection, periorbital swelling ENT exam: Present: mucous membranes dry. Absent: normal exam, normal oropharynx, mucous membranes moist Neck exam: Present: normal inspection, full ROM. Absent: tenderness, meningismus, lymphadenopathy Respiratory exam: Present: normal lung sounds bilaterally. Absent: respiratory distress, wheezes, rales, rhonchi, stridor Cardiovascular Exam: Present: regular rate, normal rhythm, normal heart sounds. Absent: systolic murmur, diastolic murmur, rubs, gallop, clicks GI/Abdominal exam: Present: soft, normal bowel sounds. Absent: distended, tenderness, guarding, rebound, rigid Neurological exam: Present: alert. Absent: oriented X3 Skin exam: Present: warm, intact, normal color, diaphoretic. Absent: dry, rash Course Vital Signs 03/02/22 03/02/22 03/02/22 08:30 09:56 11:30 Temperature 97.9 F Pulse Rate 77 90 Respiratory 20 20 Rate Blood Pressure 138/70 124/62 113/98 O2 Sat by Pulse 97 100 Oximetry 03/02/22 13:35 Temperature 99.6 F Pulse Rate Respiratory Rate Blood Pressure O2 Sat by Pulse Oximetry Procedures - Restraint - Face to Face Restraint Occurrence 1 Patient's Immediate Situation: Endangers self safety, Endangers others' safety, Endangers staff safety Patient's Reaction to the Intervention: Uncooperative, Bizarre, Restless, Resistive to care Patient's Medical & Behavioral Condition: Awake, Agitated Need to Continue or Terminate Restraint or Seclusion: Continue Face to Face Eval of Restraint Date: 03/02/22 Face to Face Eval of Restraint Time: 11:25 Medical Decision Making - Medical Decision Making This a 36-year-old male presents emergency department for altered mental status, erratic behavior. Patient son be on methamphetamines. Patient is very agitated, not coherent with normal commands. Patient was given multiple doses of Ativan, Haldol, Benadryl with no improvement symptoms ketamine was administered IM and again no relief of behavior. Patient was restrained. Patient's vitals been closely monitored including temperature, heart rate. Patient be admitted with telemetry concerning for methamphetamine overdose, possible dysrhythmia - Lab Data Result diagrams: 03/02/22 08:42 03/02/22 08:42 Lab Results 03/02/22 03/02/22 03/02/22 Range/Units 08:42 08:42 08:42 WBC 5.3 (3.8-10.6) k/uL RBC 4.20 L (4.30-5.90) m/uL Hgb 12.4 L (13.0-17.5) gm/dL Hct 36.4 L (39.0-53.0) % MCV 86.5 (80.0-100.0) fL MCH 29.6 (25.0-35.0) pg MCHC 34.2 (31.0-37.0) g/dL RDW 14.0 (11.5-15.5) % Plt Count 142 L (150-450) k/uL MPV 9.4 Neutrophils % (Manual) 38 % Band Neuts % (Manual) 2 % Lymphocytes % (Manual) 46 % Monocytes % (Manual) 11 % Eosinophils % (Manual) 3 % Neutrophils # (Manual) 2.10 (1.3-7.7) k/uL Lymphocytes # (Manual) 2.44 (1.0-4.8) k/uL Monocytes # (Manual) 0.58 (0-1.0) k/uL Eosinophils # (Manual) 0.16 (0-0.7) k/uL Nucleated RBCs 0 (0-0) /100 WBC Manual Slide Review Performed Sodium 141 (137-145) mmol/L Potassium 4.1 (3.5-5.1) mmol/L Chloride 109 H (98-107) mmol/L Carbon Dioxide 23 (22-30) mmol/L Anion Gap 9 mmol/L BUN 25 H (9-20) mg/dL Creatinine 0.82 (0.66-1.25) mg/dL Est GFR (CKD-EPI)AfAm >90 (>60 ml/min/1.73 sqM) Est GFR (CKD-EPI)NonAf >90 (>60 ml/min/1.73 sqM) Glucose 75 (74-99) mg/dL Plasma Lactic Acid Sohail 0.9 (0.7-2.0) mmol/L Calcium 9.1 (8.4-10.2) mg/dL Total Bilirubin 0.6 (0.2-1.3) mg/dL AST 105 H (17-59) U/L ALT 162 H (4-49) U/L Alkaline Phosphatase 54 (38-126) U/L Total Protein 8.2 (6.3-8.2) g/dL Albumin 4.0 (3.5-5.0) g/dL Salicylates <1.0 mg/dL Urine Opiates Screen (NotDetected) Ur Oxycodone Screen (NotDetected) Urine Methadone Screen (NotDetected) Ur Propoxyphene Screen (NotDetected) Acetaminophen <10.0 ug/mL Ur Barbiturates Screen (NotDetected) U Tricyclic Antidepress (NotDetected) Ur Phencyclidine Scrn (NotDetected) Ur Amphetamines Screen (NotDetected) U Methamphetamines Scrn (NotDetected) U Benzodiazepines Scrn (NotDetected) Urine Cocaine Screen (NotDetected) U Marijuana (THC) Screen (NotDetected) Serum Alcohol <10 mg/dL 03/02/22 Range/Units 11:49 WBC (3.8-10.6) k/uL RBC (4.30-5.90) m/uL Hgb (13.0-17.5) gm/dL Hct (39.0-53.0) % MCV (80.0-100.0) fL MCH (25.0-35.0) pg MCHC (31.0-37.0) g/dL RDW (11.5-15.5) % Plt Count (150-450) k/uL MPV Neutrophils % (Manual) % Band Neuts % (Manual) % Lymphocytes % (Manual) % Monocytes % (Manual) % Eosinophils % (Manual) % Neutrophils # (Manual) (1.3-7.7) k/uL Lymphocytes # (Manual) (1.0-4.8) k/uL Monocytes # (Manual) (0-1.0) k/uL Eosinophils # (Manual) (0-0.7) k/uL Nucleated RBCs (0-0) /100 WBC Manual Slide Review Sodium (137-145) mmol/L Potassium (3.5-5.1) mmol/L Chloride (98-107) mmol/L Carbon Dioxide (22-30) mmol/L Anion Gap mmol/L BUN (9-20) mg/dL Creatinine (0.66-1.25) mg/dL Est GFR (CKD-EPI)AfAm (>60 ml/min/1.73 sqM) Est GFR (CKD-EPI)NonAf (>60 ml/min/1.73 sqM) Glucose (74-99) mg/dL Plasma Lactic Acid Sohail (0.7-2.0) mmol/L Calcium (8.4-10.2) mg/dL Total Bilirubin (0.2-1.3) mg/dL AST (17-59) U/L ALT (4-49) U/L Alkaline Phosphatase (38-126) U/L Total Protein (6.3-8.2) g/dL Albumin (3.5-5.0) g/dL Salicylates mg/dL Urine Opiates Screen Not Detected (NotDetected) Ur Oxycodone Screen Not Detected (NotDetected) Urine Methadone Screen Not Detected (NotDetected) Ur Propoxyphene Screen Not Detected (NotDetected) Acetaminophen ug/mL Ur Barbiturates Screen Not Detected (NotDetected) U Tricyclic Antidepress Detected H (NotDetected) Ur Phencyclidine Scrn Not Detected (NotDetected) Ur Amphetamines Screen Detected H (NotDetected) U Methamphetamines Scrn Detected H (NotDetected) U Benzodiazepines Scrn Not Detected (NotDetected) Urine Cocaine Screen Not Detected (NotDetected) U Marijuana (THC) Screen Detected H (NotDetected) Serum Alcohol mg/dL Critical Care Time Critical Care Time: Yes Total Critical Care Time: 60 Disposition Clinical Impression: Methamphetamine intoxication, Drug-induced delirium Disposition: ADMITTED IP TO THIS [facility] Condition: Poor Referrals: None,Stated [Primary Care Provider] - 1-2 days
[2022-03-02 09:02] LABS: HCT 36.4 % (39.0-53.0); HGB 12.4 gm/dL (13.0-17.5); MCH 29.6 pg (25.0-35.0); MCHC 34.2 g/dL (31.0-37.0); MCV 86.5 fL (80.0-100.0); Mean Platelet Volume 9.4; Platelet Count 142 k/uL (150-450); WBC 5.3 k/uL (3.8-10.6)
[2022-03-02 09:05] LABS: ALT 162 U/L (4-49); AST 105 U/L (17-59); Acetaminophen <10.0 ug/mL; African American GFR (CKD) >90 (>60 ml/min/1.73 sqM); Alcohol <10 mg/dL; Alkaline Phosphatase 54 U/L (38-126); Anion Gap 9 mmol/L; Blood Urea Nitrogen 25 mg/dL (9-20); Calcium 9.1 mg/dL (8.4-10.2); Carbon Dioxide 23 mmol/L (22-30); Chloride 109 mmol/L (98-107); Glucose 75 mg/dL (74-99); Non-African American GFR(CKD) >90 (>60 ml/min/1.73 sqM); Potassium 4.1 mmol/L (3.5-5.1); Salicylate <1.0 mg/dL; Sodium 141 mmol/L (137-145); Total Bilirubin 0.6 mg/dL (0.2-1.3); Total Protein 8.2 g/dL (6.3-8.2)
[2022-03-02 09:11] LABS: Band Neutrophils % 2 %; Eosinophils # (M) 0.16 k/uL (0-0.7); Lymphocytes # (M) 2.44 k/uL (1.0-4.8); Monocytes # (M) 0.58 k/uL (0-1.0); Neutrophils % (M) 38 %; Nucleated Red Blood Cells 0 /100 WBC (0-0); Total Cells Counted 100
[2022-03-02] MEDS ORDERED: LORazepam 2 MG/ML INJ IV STA ×6 (09:14→13:14)
[2022-03-02] MEDS ORDERED: HALOPERIDOL LACTATE 5 MG/ML 1 ML VIAL IVP STA (10:06)
[2022-03-02] MEDS ORDERED: diphenhydrAMINE 50 MG/ML 1 ML VIAL IVP STA (10:07)
[2022-03-02] MEDS ORDERED: KETAMINE 50 MG/ML 10 ML VIAL IM ONE (10:40)
[2022-03-02 12:52] LABS: Amphetamine Screen,Urine Detected (NotDetected); Benzodiazepines Screen,Urine Not Detected (NotDetected); Cocaine Screen,Urine Not Detected (NotDetected); Methadone Screen, Urine Not Detected (NotDetected); Opiate Screen,Urine Not Detected (NotDetected); Phencyclidine Screen,Urine Not Detected (NotDetected); Tricyclic Antidepressant,Urine Detected (NotDetected); Urn Cannabinoid Scrn Detected (NotDetected)
[2022-03-02 12:53] LABS: Barbiturate Screen,Urine Not Detected (NotDetected); Oxycodone Screen, Urine Not Detected (NotDetected)
[2022-03-02] MEDS ORDERED: ONDANSETRON 4 MG/2 ML VIAL IVP PRN (13:50)
[2022-03-02] MEDS ORDERED: NALOXONE 0.4 MG/ML 1 ML VIAL IV PRN (13:50)
[2022-03-02] MEDS ORDERED: LORazepam 1 MG TAB PO PRN (13:50)
[2022-03-02] MEDS ORDERED: HALOPERIDOL LACTATE 5 MG/ML 1 ML VIAL IM PRN (14:57)
--- NOTE | 2022-03-02 15:50 | XR ---
EXAMINATION TYPE: XR chest 1V portable DATE OF EXAM: 03/02/2022 COMPARISON: 01/26/2022 HISTORY: Cough TECHNIQUE: Single frontal view of the chest is obtained. FINDINGS: There is no focal air space opacity, pleural effusion, or pneumothorax seen. The cardiac silhouette size is within normal limits. The osseous structures are intact. Reduced inspiration. IMPRESSION: No acute process.
--- NOTE | 2022-03-02 18:59 | HP ---
HISTORY AND PHYSICAL DATE OF SERVICE: 03/02/2022. CHIEF COMPLAINTS: Change in mental status, drug abuse. HISTORY OF PRESENT ILLNESS: This 36-year-old gentleman with a past medical history of extensive drug abuse history with multiple hospital admissions including intubations per staff, also had hypertension, liver disease and hepatitis C. The patient was brought from [facility] with change in mental status. The patient apparently had taken multiple medications including methamphetamine and marijuana. The patient has abnormal movements as well. The patient had to be sedated using 10 of Ativan, 400 mcg ketamine and as well as 2 Haldol. The patient is currently sedated but still the jerking movements and most of the history was taken from my discussion with staff and as well as ER physician and review of chart. PAST MEDICAL HISTORY: Extensive drug abuse history as mentioned earlier per chart and hypertension and liver disease. HOME MEDICATIONS: Reviewed and include: Bupropion. Doses reviewed. ALLERGIES: None. Family history, social history and review of systems could not be taken. PHYSICAL EXAMINATION: Patient is stuporous, as mentioned earlier, sedated. Pulse 90, blood pressure 124/63, respiration 20. HEENT: Conjunctivae normal. Oral mucosa moist. NECK: No jugular venous distention. CARDIOVASCULAR: S1, S2. RESPIRATION: Breath sounds diminished in the bases. A few scattered rhonchi and crackles. ABDOMEN: Soft, nontender. LEGS: No edema. No swelling. NERVOUS SYSTEM could not be examined but abnormal movements and jerking movements present. SKIN: No ulcers, rashes or bleeding. JOINTS: No active deforming arthropathy. LABS: Reviewed. Hemoglobin 12.4. Other labs are reviewed. ASSESSMENT: 1. Change in mental status, possibly acute drug overdosage including methamphetamine, tricyclics and as well as THC. 2. Gastroesophageal reflux disease. 3. Hypertension. 4. History of chronic liver disease secondary to hepatitis C. RECOMMENDATIONS AND DISCUSSION: This 36-year-old gentleman who presented with multiple complex medical issues, we will monitor the patient closely, continue the current medications, continues sedatives. Psychiatric evaluation. Otherwise, watch for any withdrawals and seizures. Prognosis guarded. We will monitor the labs and further recommendations to follow. MMODL / IJN: [id number] /
[2022-03-02 21:12] LABS: Glucose,Whole Blood 67 mg/dL (75-99)
[2022-03-02] MEDS ORDERED: DEXTROSE 50% SYRINGE 50 ML IVP ONE (21:12)
[2022-03-02] MEDS: SODIUM CHLORIDE 0.9% 1,000 ML IV SCH ×2 (21:30→21:43)
[2022-03-02 21:38] LABS: Glucose,Whole Blood 132 mg/dL (75-99)
[2022-03-02] MEDS: PANTOPRAZOLE 40 MG TABLET PO SCH (21:43)
[2022-03-03] MEDS: DEXMEDETOMIDINE/0.9% NACL(PMX) 400 MCG in EMPTY BAG 1 BAG IV SCH ×3 (02:16→17:27)
[2022-03-03 02:46] LABS: Appearance,Urine Clear (Clear); Bilirubin,Urine Negative (Negative); Blood,Urine Negative (Negative); Color,Urine Yellow; Glucose,Urine (UA) Negative (Negative); Ketones,Urine 2+ (Negative); Leukocyte Esterase,Urine Negative (Negative); Nitrite,Urine Negative (Negative); PH, Urine 5.5 (5.0-8.0); Protein,Urine Negative (Negative); Specific Gravity,Urine 1.029 (1.001-1.035); Urobilinogen,Urine <2.0 mg/dL (<2.0)
[2022-03-03] MEDS: PANTOPRAZOLE 40 MG TABLET PO SCH (06:41)
[2022-03-03 07:42] LABS: Basophils % (A) 1 %; Eosinophils # (A) 0.1 k/uL (0-0.7); Eosinophils % (A) 1 %; HCT 37.5 % (39.0-53.0); HGB 12.2 gm/dL (13.0-17.5); Lymphocytes # (A) 1.1 k/uL (1.0-4.8); Lymphocytes % (A) 15 %; MCH 29.2 pg (25.0-35.0); MCHC 32.6 g/dL (31.0-37.0); MCV 89.4 fL (80.0-100.0); Monocytes # (A) 0.5 k/uL (0-1.0); Monocytes % (A) 6 %; Neutrophils # (A) 5.9 k/uL (1.3-7.7); Neutrophils % (A) 75 %; Platelet Count 126 k/uL (150-450); RDW 13.6 % (11.5-15.5); WBC 7.8 k/uL (3.8-10.6)
--- NOTE | 2022-03-03 07:51 | XR ---
EXAMINATION TYPE: XR chest 1V DATE OF EXAM: 03/03/2022 COMPARISON: 03/02/2020 HISTORY: : TECHNIQUE: Single frontal view of the chest is obtained. FINDINGS: There is no focal air space opacity, pleural effusion, or pneumothorax seen. The cardiac silhouette size is within normal limits. The osseous structures are intact. IMPRESSION: No acute process.
[2022-03-03] MEDS: DEXTROSE 5%-0.45% NACL 1,000 ML IV SCH ×2 (10:04→17:28)
--- NOTE | 2022-03-03 10:15 | P.CNPUL ---
History of Present Illness Consult date: 03/03/22 Requesting physician: Abelardo Potts Reason for consult: other (Critical care management) Chief complaint: Altered mental status History of present illness: This is a 36-year-old male patient with a known history of polysubstance abuse with previous intubation and mechanical ventilatory support, hepatitis C,schizoaffective disorder, alcohol abuse, cocaine abuse, chronic tobacco dependence medication noncompliance. He is currently reading living at the [facility] and yesterday was found to have altered mental status and brought into the emergency room for the same. The patient did admit to using marijuana. Urine drug screen was positive for tricyclic antidepressants, amphetamines, methamphetamines, marijuana. He became quite aggressive and combative and placed in 4 point leather restraints and required Haldol, ketamine and Ativan. He was subsequently admitted to the intensive care unit. He was initiated on a Precedex drip currently at 0.4 micrograms per kilogram per hour. He is seen today in consultation in the ICU. He is currently resting comfortably in bed. Maintaining good O2 saturations in the 90s on 2 L/m per nasal cannula. He's been afebrile. Hemodynamically stable. He has 0.9 normal saline at 75 ML's per hour. Chest x-ray reveals no acute pulmonary process. white count 7.8. Hemoglobin 12.2. Platelets 126. Sodium 141. Potassium 4.1. Bicarb 23. BUN 25. Creatinine 0.82. Glucose 132. AST 105. ALT 162. Serum alcohol level less than 10. Review of Systems ROS unobtainable: due to mental status Past Medical History Past Medical History: No Reported History, Unable to Obtain, GERD/Reflux, Hypertension, Liver Disease Additional Past Medical History / Comment(s): Hepatitis C, DDD, back pain, bilateral carpel tunnel syndrome. He reports that he has heart disease that was found when he had kidney problems but he denies having a stress test or cardiac catheterization. History of Any Multi-Drug Resistant Organisms: None Reported MDRO Source:: unknown Past Surgical History: No Surgical Hx Reported, Unable to Obtain Additional Past Surgical History / Comment(s): Pt states he has had numerous "cysts" removed from where he injected IV drugs. Past Anesthesia/Blood Transfusion Reactions: No Reported Reaction, Unable to Obtain Additional Past Anesthesia/Blood Transfusion Reaction / Comment(s): Pt states he has never had surgery. Past Psychological History: Anxiety, Depression, Unable to Obtain Additional Psychological History / Comment(s): Pt currently at [facility]. He denies suicidal thoughts/plans recently. He has had multiple [facility] mental health admission. Smoking Status: Current every day smoker Past Alcohol Use History: Occasional Additional Past Alcohol Use History / Comment(s): Pt started smoking in 1994 and smokes 1ppd Past Drug Use History: Heroin, Marijuana, Methamphetamine Additional Drug Use History / Comment(s): Pt states he has used drugs in the past but none recently d/t no money. 12/15/21 UDS +marijuana - Past Family History Mother Family Medical History: Unable to Obtain, Rheumatoid Arthritis (RA) Additional Family Medical History / Comment(s): Mother is . Father Family Medical History: Coronary Artery Disease (CAD) Medications and Allergies Home Medications Medication Instructions Recorded Confirmed Type QUEtiapine [SEROquel] 600 mg PO HS 03/02/22 03/02/22 History Venlafaxine HCl ER [Effexor Xr] 75 mg PO DAILY 03/02/22 03/02/22 History buPROPion HCL [buPROPion HCL XL] 450 mg PO DAILY 03/02/22 03/02/22 History busPIRone HCL 15 mg PO TID 03/02/22 03/02/22 History Allergies Allergy/AdvReac Type Severity Reaction Status Date / Time No Known Allergies Allergy Verified 03/02/22 09:15 Physical Exam Vitals: Vital Signs Temp Pulse Pulse Resp BP BP Pulse Ox 03/03/22 07:47 96 03/03/22 07:00 92 15 109/58 95 03/03/22 06:30 90 18 106/62 95 03/03/22 06:00 73 44 H 107/55 97 03/03/22 05:30 80 29 H 101/63 94 L 03/03/22 05:00 96 17 108/72 95 03/03/22 04:30 98 24 113/63 93 L 03/03/22 04:00 98.8 F 76 23 113/63 95 03/03/22 03:30 78 19 111/59 95 03/03/22 03:00 80 24 102/74 95 03/03/22 02:30 98 19 170/96 93 L 03/03/22 02:00 108 H 36 H 126/87 96 03/03/22 01:30 79 31 H 129/69 96 03/03/22 01:00 87 15 114/62 94 L 03/03/22 00:30 99 28 H 96 03/03/22 00:00 98.5 F 100 16 106/59 95 03/02/22 23:30 92 24 102/58 90 L 03/02/22 23:26 84 24 102/58 92 L 03/02/22 23:00 78 28 H 110/54 88 L 03/02/22 22:30 76 32 H 112/58 89 L 03/02/22 22:00 87 17 118/59 88 L 03/02/22 21:30 98.4 F 88 78 37 H 121/74 118/59 91 L 03/02/22 21:11 91 16 98 03/02/22 18:20 78 16 113/98 97 03/02/22 15:53 99.1 F 03/02/22 13:35 99.6 F 03/02/22 11:30 113/98 Intake and Output 03/02/22 03/03/22 03/03/22 22:59 06:59 14:59 Intake Total 621.54 75 Output Total 0 2820 75 Balance 0 -2198.46 0 Intake: IV 75 75 Sodium Chloride 0.9% 1, 75 75 000 ml @ 75 mls/hr IV . [id number] [facility] Rx#:[id number] Intake, IV Titration 546.54 Amount Dexmedetomidine/0.9% NaCl 21.54 (Pmx) 400 mcg In Empty Bag 1 bag @ 0.2 MCG/KG/HR 4.99 mls/hr IV .Q20H3M [facility] Rx#:[id number] Sodium Chloride 0.9% 1, 525 000 ml @ 75 mls/hr IV . [id number] [facility] Rx#:[id number] Output: Urine 0 2820 75 Male - External 0 200 Uretheral (Cat) 1100 Other: Voiding Method External Catheter Indwelling Catheter Weight 88.6 kg GENERAL EXAM: Arousable, sedated 36-year-old male patient on 2 L nasal cannula,comfortable in no apparent distress. HEAD: Normocephalic. EYES: Normal reaction of pupils, equal size. NOSE: Clear with pink turbinates. THROAT: No erythema or exudates. NECK: No masses, no JVD. CHEST: No chest wall deformity. LUNGS: Equal air entry with no crackles, wheeze, rhonchi or dullness. CVS: S1 and S2 normal with no audible murmur, regular rhythm. ABDOMEN: No hepatosplenomegaly, normal bowel sounds, no guarding or rigidity. SPINE: No scoliosis or deformity SKIN: No rashes CENTRAL NERVOUS SYSTEM: No focal deficits, tone is normal in all 4 extremities. EXTREMITIES: There is no peripheral edema. No clubbing, no cyanosis. Peripheral pulses are intact. Results - Laboratory Findings CBC and BMP: 03/03/22 07:05 03/02/22 08:42 Abnormal lab findings: Abnormal Labs 03/02/22 03/02/22 03/02/22 08:42 08:42 11:49 RBC 4.20 L Hgb 12.4 L Hct 36.4 L Plt Count 142 L Chloride 109 H BUN 25 H POC Glucose (mg/dL) AST 105 H ALT 162 H Urine Ketones U Tricyclic Antidepress Detected H Ur Amphetamines Screen Detected H U Methamphetamines Scrn Detected H U Marijuana (THC) Screen Detected H 03/02/22 03/02/22 03/03/22 21:10 21:37 02:00 RBC Hgb Hct Plt Count Chloride BUN POC Glucose (mg/dL) 67 L 132 H AST ALT Urine Ketones 2+ H U Tricyclic Antidepress Ur Amphetamines Screen U Methamphetamines Scrn U Marijuana (THC) Screen 03/03/22 07:05 RBC 4.20 L Hgb 12.2 L Hct 37.5 L Plt Count 126 L Chloride BUN POC Glucose (mg/dL) AST ALT Urine Ketones U Tricyclic Antidepress Ur Amphetamines Screen U Methamphetamines Scrn U Marijuana (THC) Screen - Diagnostic Findings Chest x-ray: image reviewed Assessment and Plan Assessment: 1 Acute drug overdose with delirium. Urine drug screen positive for tricyclic antidepressants, amphetamines, methamphetamines and marijuana. He is currently requiring Precedex and resting comfortably in the ICU on 2 L nasal cannula. 2 Episodes of hypoglycemia 3 History of polysubstance abuse and previous overdoses requiring intubation mechanical ventilatory support. 4 Previous admission for aggressive, agitated and threatening behavior 5 History of schizoaffective disorder 6 History of alcohol abuse. Serum alcohol level this admission less than 10 7 History of cocaine use 8 Chronic and ongoing tobacco dependence 9 History of medication noncompliance Plan: The patient was seen and evaluated Chest x-ray and labs reviewed Discontinue normal saline Initiate D5.45 at 125 ML's per hour Titrate the Precedex as tolerated Continue to monitor closely here in the ICU We'll continue to follow and make further recommendations based on his clinical status I have personally seen and examined the patient, performed the documentation and the assessment and plan as written. Number of minutes spent on the visit: 20.
[2022-03-03 11:26] LABS: Glucose,Whole Blood 95 mg/dL (75-99)
[2022-03-03] MEDS ORDERED: LORazepam 2 MG/ML INJ IV PRN (12:33)
--- NOTE | 2022-03-03 15:16 | P.PN ---
Subjective Progress Note Date: 03/03/22 This is a 36-year-old male who was recently admitted with extensive past medical history of drug abuse with multiple hospital admissions and has been intubated for this and was recently brought in from the [facility] for changes in mental status and is being closely monitored. Patient is currently in the ICU with pulmonary food cart attendant following closely. Patient is maintained on IV Ativan along with Precedex and continued IM Haldol. Patient is extremely lethargic and arousable to name but quickly falls back asleep. Unable to assess mentation. Patient continues to be extremely restless at times requiring restraints and working on weaning from restraints and currently has to restraints left. Per nursing staff Precedex is helping keeping the patient calm. Patient is currently maintained on 2 L of oxygen via nasal cannula. Patient is afebrile. WBC within normal limits at 7.8, hemoglobin is 12.2. Will monitor closely and have psychiatry evaluate the patient once awake. Review of systems: Unable to obtain as patient is lethargic and confused Active Medications Haloperidol Lactate (Haloperidol Lactate 5 Mg/Ml 1 Ml Vial) 5 mg IM Q6HR PRN PRN Reason: Agitation or Acute Psychosis Last Admin: 03/02/22 23:43 Dose: 5 mg Documented by: Dexmedetomidine HCl 400 mcg/ (IV Solution) 100 mls @ 4.99 mls/hr IV .Q20H3M [facility]; Protocol Last Titration: 03/03/22 12:50 Dose: 0.6 mcg/kg/hr, 14.969 mls/hr Documented by: Dextrose/Sodium Chloride (Dextrose 5%-1/2ns Iv Soln) 1,000 mls @ 125 mls/hr IV .Q8H [facility] Last Admin: 03/03/22 10:04 Dose: 125 mls/hr Documented by: Lorazepam (Lorazepam 2 Mg/Ml Inj) 1 mg IV Q2HR PRN PRN Reason: Agitation or Acute Anxiety Naloxone HCl (Naloxone 0.4 Mg/Ml 1 Ml Vial) 0.2 mg IV Q2M PRN PRN Reason: Opioid Reversal Ondansetron HCl (Ondansetron 4 Mg/2 Ml Vial) 4 mg IVP Q8HR PRN PRN Reason: Nausea And Vomiting Pantoprazole Sodium (Pantoprazole 40 Mg Tablet) 40 mg PO [id number] [facility] Last Admin: 03/03/22 06:41 Dose: Not Given Documented by: PHYSICAL EXAMINATION: GENERAL: The patient is asleep and extremely lethargic although arousable to name, and falls right back asleep HEENT: Pupils are round and equally reacting to light. EOMI. no scleral icterus. No conjunctival pallor. Normocephalic, atraumatic. No pharyngeal erythema. No thyromegaly. CARDIOVASCULAR: S1 and S2 muffled PULMONARY: diminished breath sounds bilaterally with some scattered rhonchi noted. ABDOMEN: soft. Nontender on exam. No guarding or rigidity noted non- distended, normoactive bowel sounds. No palpable organomegaly. MUSCULOSKELETAL: No joint swelling or deformity. EXTREMITIES: No cyanosis, clubbing, or pedal edema. NEUROLOGICAL: Gross neurological examination did not reveal any focal deficits. Unable to completely assess as patient is sedated and stuporous, fidgety on exam SKIN: No rashes. Right lower lip burn noted Assessment: Change in mental status, possibly acute drug overdose including methamphetamine, tricyclics as well as THC Gastroesophageal reflux disease Hypertension History of chronic liver disease secondary to hepatitis C GI prophylaxis DVT prophylaxis Full code Plan: Recommend to continue with current medications and management per ICU management. Patient currently maintained on Precedex low-dose and will continue with IV Ativan and Haldol as needed. Continue to assess for weaning of re straints and mentation. Will have psychiatry evaluate the patient once more awake. Patient has history of multiple hospitalizations and has been admitted frequently on the psychiatric unit here. Patient also has history of noncompliance. Due to multiple complex medical issues, prognosis is guarded. Recommend repeat labs and close monitoring in the ICU for now. The impression and plan of care has been dictated by Marlena Roque, nurse practitioner as directed. MD Monique I have performed a history and examination and MDM of this patient, discussed the same with the dictator, and agree with the dictator's assessment and plan as written ,documented as a scribe. Based on total visit time, I have performed more than 50% of the visit. Any additional findings or plans will be noted. Objective - Vital Signs Vital signs: Vital Signs Temp 98.2 F 03/03/22 12:00 Pulse 71 03/03/22 12:00 Resp 25 H 03/03/22 12:00 BP 106/59 03/03/22 12:00 Pulse Ox 93 L 03/03/22 12:00 Intake & Output 03/02/22 03/03/22 03/03/22 18:59 06:59 18:59 Intake Total 621.54 134.209 Output Total 2820 75 Balance -2198.46 59.209 Weight 99.79 kg 88.6 kg Intake: IV 75 75 Sodium Chloride 0.9% 1, 75 75 000 ml @ 75 mls/hr IV . [id number] [facility] Rx#:[id number] Intake, IV Titration 546.54 59.209 Amount Dexmedetomidine/0.9% NaCl 21.54 59.209 (Pmx) 400 mcg In Empty Bag 1 bag @ 0.2 MCG/KG/HR 4.99 mls/hr IV .Q20H3M [facility] Rx#:[id number] Sodium Chloride 0.9% 1, 525 000 ml @ 75 mls/hr IV . [id number] [facility] Rx#:[id number] Output: Urine 2820 75 Male - External 200 Uretheral (Cat) 1100 Other: Voiding Method Indwelling Catheter - Labs CBC & Chem 7: 03/03/22 07:05 03/02/22 08:42 Labs: Abnormal Lab Results - Last 24 Hours (Table) 03/02/22 03/02/22 03/02/22 Range/Units 11:49 21:10 21:37 RBC (4.30-5.90) m/uL Hgb (13.0-17.5) gm/dL Hct (39.0-53.0) % Plt Count (150-450) k/uL POC Glucose (mg/dL) 67 L 132 H (75-99) mg/dL Urine Ketones (Negative) U Tricyclic Antidepress Detected H (NotDetected) Ur Amphetamines Screen Detected H (NotDetected) U Methamphetamines Scrn Detected H (NotDetected) U Marijuana (THC) Screen Detected H (NotDetected) 03/03/22 03/03/22 Range/Units 02:00 07:05 RBC 4.20 L (4.30-5.90) m/uL Hgb 12.2 L (13.0-17.5) gm/dL Hct 37.5 L (39.0-53.0) % Plt Count 126 L (150-450) k/uL POC Glucose (mg/dL) (75-99) mg/dL Urine Ketones 2+ H (Negative) U Tricyclic Antidepress (NotDetected) Ur Amphetamines Screen (NotDetected) U Methamphetamines Scrn (NotDetected) U Marijuana (THC) Screen (NotDetected)
[2022-03-03 17:32] LABS: Glucose,Whole Blood 127 mg/dL (75-99)
[2022-03-04] MEDS: DEXTROSE 5%-0.45% NACL 1,000 ML IV SCH ×3 (01:00→21:01)
[2022-03-04] MEDS: DEXMEDETOMIDINE/0.9% NACL(PMX) 400 MCG in EMPTY BAG 1 BAG IV SCH ×2 (02:29→11:47)
[2022-03-04] MEDS ORDERED: FUROSEMIDE 10 MG/ML 4 ML VIAL IV STA (06:07)
[2022-03-04 06:22] LABS: Glucose,Whole Blood 144 mg/dL (75-99)
[2022-03-04] MEDS: PANTOPRAZOLE 40 MG TABLET PO SCH (06:44)
[2022-03-04 08:16] LABS: Basophils % (A) 1 %; Eosinophils # (A) 0.3 k/uL (0-0.7); Eosinophils % (A) 5 %; HCT 39.6 % (39.0-53.0); HGB 12.6 gm/dL (13.0-17.5); Lymphocytes # (A) 1.5 k/uL (1.0-4.8); Lymphocytes % (A) 25 %; MCH 28.9 pg (25.0-35.0); MCHC 31.7 g/dL (31.0-37.0); MCV 91.2 fL (80.0-100.0); Monocytes # (A) 0.5 k/uL (0-1.0); Monocytes % (A) 7 %; Neutrophils # (A) 3.6 k/uL (1.3-7.7); Neutrophils % (A) 60 %; Platelet Count 120 k/uL (150-450); RBC 4.34 m/uL (4.30-5.90); RDW 13.5 % (11.5-15.5); WBC 6.1 k/uL (3.8-10.6)
[2022-03-04 08:38] LABS: African American GFR (CKD) >90 (>60 ml/min/1.73 sqM); Anion Gap 8 mmol/L; Blood Urea Nitrogen 10 mg/dL (9-20); Calcium 8.6 mg/dL (8.4-10.2); Carbon Dioxide 23 mmol/L (22-30); Chloride 109 mmol/L (98-107); Glucose 134 mg/dL (74-99); Non-African American GFR(CKD) >90 (>60 ml/min/1.73 sqM); Potassium 3.6 mmol/L (3.5-5.1); Sodium 140 mmol/L (137-145)
[2022-03-04] MEDS: POTASSIUM CHLORIDE 10 MEQ in WATER FOR INJECTION 1 100ML.BAG IVPB SCH ×2 (09:51→11:48)
--- NOTE | 2022-03-04 11:42 | CDI ---
Documentation Clarification Form Date: 03/03/2022 10:41:27 AM From: Mary Lieberman RN CCDS Admit Date: 03/03/2022 12:33 PM Patient Name: Wilbert Rosenthal Visit Number: [id number] Discharge Date: ATTENTION: The Clinical Documentation Specialists (CDI) and [facility] Coding Staff appreciate your assistance in clarifying documentation. Please respond to the clarification below the line at the bottom and electronically sign. The CDI & [facility] Coding staff will review the response and follow-up if needed. Please note: Queries are made part of the Legal Health Record. If you have any questions, please contact the author of this message via ITS. Dr. Abelardo Potts Your patient has the documented symptom of Altered Mental Status 03/02, H&P. Additional clarification regarding the etiology/cause of this symptom is requested. History/Risk Factors: 36-year-old male presents to the ED via EMS from [facility] for altered mental status. Medical History: Hepatitis C, DDD, HTN, Opiate and Methamphetamine abuse. 03/02, ED Note. Clinical Indicators: Labs: 03/02 Toxicology: Amphetamines, Methamphetamines and Marijuana 03/02, ED Note: He became quite aggressive and combative. Treatment: 03/02 Monitoring for withdrawals and seizures 03/02 0.9NS 2,000ml IV x 1; 03/02 Haldol 2mg IVP x 1 STA; 03/02 5mg IM Q6HR PRN Acute agitation; 03/02 Ketamine 400mg IM x 1 STA; 03/02 Ativan 1mg IM x 1 STA; 03/02 Ativan 1mg IM x 1 STA; 03/02 Ativan 2mg IV x 1 STA; 03/02 Ativan 2mg IV x 1 STA; 03/02 Ativan 2mg IV x 1 STA; 03/02 Ativan 2mg IV x 1 STA; 03/03 Dexmedetomidine HCL 400mcg IV Q24H3M Please clarify the etiology of the symptom of Altered Mental Status: [ ] Toxic Metabolic Encephalopathy due to drug overdose [ ] Other condition (please specify) [ ] Unable to determine (Template Last Revised: December 2020) vToxic Metabolic Encephalopathy due to drug overdose MTDD
--- NOTE | 2022-03-04 12:53 | P.PN ---
Subjective Progress Note Date: 03/04/22 Principal diagnosis: Altered mental status This is a 36-year-old male patient with a known history of polysubstance abuse with previous intubation and mechanical ventilatory support, hepatitis C,schizoaffective disorder, alcohol abuse, cocaine abuse, chronic tobacco dependence medication noncompliance. He is currently reading living at the [facility] and yesterday was found to have altered mental status and brought into the emergency room for the same. The patient did admit to using marijuana. Urine drug screen was positive for tricyclic antidepressants, amphet amines, methamphetamines, marijuana. He became quite aggressive and combative and placed in 4 point leather restraints and required Haldol, ketamine and Ativan. He was subsequently admitted to the intensive care unit. He was initiated on a Precedex drip currently at 0.4 micrograms per kilogram per hour. He is seen today in consultation in the ICU. He is currently resting comfortably in bed. Maintaining good O2 saturations in the 90s on 2 L/m per nasal cannula. He's been afebrile. Hemodynamically stable. He has 0.9 normal saline at 75 ML's per hour. Chest x-ray reveals no acute pulmonary process. white count 7.8. Hemoglobin 12.2. Platelets 126. Sodium 141. Potassium 4.1. Bicarb 23. BUN 25. Creatinine 0.82. Glucose 132. AST 105. ALT 162. Serum alcohol level less than 10. Reevaluated today on 03/04/2022, patient seems to be calm, remains on Precedex at 0.3, micrograms per kilo per hour, patient is doing well overall, IV fluid is D5 45 at 1 25 mL/h, he is on 2 L nasal cannula O2 sat is 94%. Patient is not requiring any Ativan at present, not requiring any Haldol. His CBC is relatively unremarkable electrolytes are normal renal profile is normal overall Precedex seems to be controlling his agitation is quite well. Objective - Vital Signs Vital signs: Vital Signs Temp 98.7 F 03/04/22 12:00 Pulse 87 03/04/22 12:00 Resp 16 03/04/22 12:00 BP 113/67 03/04/22 12:00 Pulse Ox 99 03/04/22 12:00 Intake & Output 03/03/22 03/04/22 03/04/22 18:59 06:59 18:59 Intake Total 8684.116 9477.709 872.193 Output Total 789 626 4354 Balance 1042.993 864.709 -192.807 Weight 88.6 kg 88.1 kg Intake: IV 1350 1625 825 Dextrose 5%-0.45% NaCl 1, 1125 1625 625 000 ml @ 125 mls/hr IV . Q8H [facility] Rx#:[id number] Potassium Chloride 10 meq 200 In Water For Injection 1 100ml.bag @ 100 mls/hr IVPB Q1H [facility] Rx#: [id number] Sodium Chloride 0.9% 1, 225 000 ml @ 75 mls/hr IV . [id number] [facility] Rx#:[id number] Intake, IV Titration 142.993 139.709 47.193 Amount Dexmedetomidine/0.9% NaCl 142.993 139.709 47.193 (Pmx) 400 mcg In Empty Bag 1 bag @ 0.2 MCG/KG/HR 4.99 mls/hr IV .Q20H3M [facility] Rx#:[id number] Output: Urine 592 200 2038 Other: Voiding Method Indwelling Catheter Indwelling Catheter Indwelling Catheter - Exam Physical Exam: Revealed 36-year-old white male in no distress. Head: Atraumatic, normocephalic. HEENT:[Neck is supple.] [No neck masses.] [No thyromegaly.] [No JVD.] Extremely dry mucous membranes noted. Chest: [Clear throughout, no crackles, no rhonchi, no wheezes.] Cardiac Exam: [Normal S1 and S2, no S3 gallop, no murmur.] Abdomen: [Soft, nontender, no megaly, no rebound, no guarding, normal bowel sounds.] Extremities: [No clubbing, no edema, no cyanosis.] Neurological Exam: Patient is sedated, however arousable, follows simple instructions. Skin: No rashes except for dry mucous membranes noted. - Labs CBC & Chem 7: 03/04/22 08:01 03/04/22 08:01 Labs: Abnormal Lab Results - Last 24 Hours (Table) 03/03/22 03/04/22 03/04/22 Range/Units 17:31 06:20 08:01 Hgb 12.6 L (13.0-17.5) gm/dL Plt Count 120 L (150-450) k/uL Chloride (98-107) mmol/L Creatinine (0.66-1.25) mg/dL Glucose (74-99) mg/dL POC Glucose (mg/dL) 127 H 144 H (75-99) mg/dL 03/04/22 Range/Units 08:01 Hgb (13.0-17.5) gm/dL Plt Count (150-450) k/uL Chloride 109 H (98-107) mmol/L Creatinine 0.53 L (0.66-1.25) mg/dL Glucose 134 H (74-99) mg/dL POC Glucose (mg/dL) (75-99) mg/dL Assessment and Plan Assessment: Impression: Acute drug overdose with delirium Acute hypoglycemia, resolved. History of polysubstance abuse including antidepressant, amphetamine, methamphetamine, and marijuana. History of schizoaffective disorder. History of alcohol abuse. History of medication noncompliance. Recommendation: Continue to monitor in the ICU Continue Precedex. Continue IV fluid. Continue GI and DVT prophylaxis. financial services rep evaluate for potential placement early next week. Time with Patient: Less than 30
[2022-03-04 18:38] LABS: Glucose,Whole Blood 96 mg/dL (75-99)
[2022-03-05] MEDS: DEXMEDETOMIDINE/0.9% NACL(PMX) 400 MCG in EMPTY BAG 1 BAG IV SCH (00:23)
--- NOTE | 2022-03-05 02:29 | P.PN ---
Subjective Progress Note Date: 03/04/22 This is a 36-year-old male who was recently admitted with extensive past medical history of drug abuse with multiple hospital admissions and has been intubated for this and was recently brought in from the [facility] for changes in mental status and is being closely monitored. Patient is currently in the ICU with pulmonary communications intern following closely. Patient is maintained on IV Ativan along with Precedex and continued IM Haldol. Patient is extremely lethargic and arousable to name but quickly falls back asleep. Unable to assess mentation. Patient continues to be extremely restless at times requiring restraints and working on weaning from restraints and currently has to restraints left. Per nursing staff Precedex is helping keeping the patient calm. Patient is currently maintained on 2 L of oxygen via nasal cannula. Patient is afebrile. WBC within normal limits at 7.8, hemoglobin is 12.2. Will monitor closely and have psychiatry evaluate the patient once awake.. 03/04/2022 Patient is seen this morning and continues to be monitored by pulmonary in the ICU and will consult psych as patient is becoming more alert. Patient is lethargic and maintained on low dose precedex with plans on weaning over the next 24 hours and will be monitored closely. Patient is afebrile and denies any chest pain or shortness of breath. FI02 being weaned as tolerated. Currently on 2 liters. Sinus bradycardia. Review of systems: Unable to obtain as patient is lethargic and confused Active Medications Haloperidol Lactate (Haloperidol Lactate 5 Mg/Ml 1 Ml Vial) 5 mg IM Q6HR PRN PRN Reason: Agitation or Acute Psychosis Last Admin: 03/02/22 23:43 Dose: 5 mg Documented by: Dexmedetomidine HCl 400 mcg/ (IV Solution) 100 mls @ 4.99 mls/hr IV .Q20H3M [facility]; Protocol Last Admin: 03/05/22 00:23 Dose: 0.4 mcg/kg/hr, 9.979 mls/hr Documented by: Dextrose/Sodium Chloride (Dextrose 5%-1/2ns Iv Soln) 1,000 mls @ 125 mls/hr IV .Q8H [facility] Last Admin: 03/04/22 21:01 Dose: 125 mls/hr Documented by: Lorazepam (Lorazepam 2 Mg/Ml Inj) 1 mg IV Q2HR PRN PRN Reason: Agitation or Acute Anxiety Naloxone HCl (Naloxone 0.4 Mg/Ml 1 Ml Vial) 0.2 mg IV Q2M PRN PRN Reason: Opioid Reversal Ondansetron HCl (Ondansetron 4 Mg/2 Ml Vial) 4 mg IVP Q8HR PRN PRN Reason: Nausea And Vomiting Pantoprazole Sodium (Pantoprazole 40 Mg Tablet) 40 mg PO AC-[id number] [facility] Last Admin: 03/04/22 06:44 Dose: Not Given Documented by: PHYSICAL EXAMINATION: GENERAL: The patient is asleep and extremely lethargic although arousable to name, and falls right back asleep HEENT: Pupils are round and equally reacting to light. EOMI. no scleral icterus. No conjunctival pallor. Normocephalic, atraumatic. No pharyngeal erythema. No thyromegaly. Oral mucosa is dry and crusting noted to upper and lower lip. CARDIOVASCULAR: S1 and S2 muffled PULMONARY: diminished breath sounds bilaterally with some scattered rhonchi and crackles noted. ABDOMEN: soft. Nontender on exam. No guarding or rigidity noted non- distended, normoactive bowel sounds. No palpable organomegaly. MUSCULOSKELETAL: No joint swelling or deformity. EXTREMITIES: No cyanosis, clubbing, or pedal edema. NEUROLOGICAL: Gross neurological examination did not reveal any focal deficits. Unable to completely assess as patient is sedated and stuporous SKIN: No rashes. Right lower lip burn noted Assessment: Change in mental status, possibly acute drug overdose including methamphetamine, tricyclics as well as THC, toxic encephalopathy Gastroesophageal reflux disease Hypertension History of chronic liver disease secondary to hepatitis C GI prophylaxis DVT prophylaxis Full code Plan: Recommend to continue with current medications and management per ICU management. Patient currently maintained on Precedex low-dose and will continue with IV Ativan and Haldol as needed. Continue to assess for weaning of restraints and mentation. Will have psychiatry evaluate the patient once more awake. Patient has history of multiple hospitalizations and has been admitted frequently on the psychiatric unit here. Patient also has history of noncompliance. Due to multiple complex medical issues, prognosis is guarded. Recommend repeat labs and close monitoring in the ICU for now. The impression and plan of care has been dictated by Marlena Roque, nurse practitioner as directed. Dr. Merle MD I have performed a history and examination and MDM of this patient, discussed the same with the dictator, and agree with the dictator's assessment and plan as written ,documented as a scribe. Based on total visit time, I have performed more than 50% of the visit. Any additional findings or plans will be noted. Objective - Vital Signs Vital signs: Vital Signs Temp 98.1 F 03/04/22 04:00 Pulse 51 L 03/04/22 07:00 Resp 17 03/04/22 07:00 BP 102/59 03/04/22 07:00 Pulse Ox 92 L 03/04/22 07:51 Intake & Output 03/03/22 03/04/22 03/04/22 18:59 06:59 18:59 Intake Total 4491.630 0685.709 Output Total 450 900 Balance 1042.993 864.709 Weight 88.6 kg 88.1 kg Intake: IV 1350 1625 Dextrose 5%-0.45% NaCl 1, 1125 1625 000 ml @ 125 mls/hr IV . Q8H [facility] Rx#:[id number] Sodium Chloride 0.9% 1, 225 000 ml @ 75 mls/hr IV . [id number] [facility] Rx#:[id number] Intake, IV Titration 142.993 139.709 Amount Dexmedetomidine/0.9% NaCl 142.993 139.709 (Pmx) 400 mcg In Empty Bag 1 bag @ 0.2 MCG/KG/HR 4.99 mls/hr IV .Q20H3M [facility] Rx#:[id number] Output: Urine 450 900 Other: Voiding Method Indwelling Catheter Indwelling Catheter - Labs CBC & Chem 7: 03/04/22 08:01 03/04/22 08:01 Labs: Abnormal Lab Results - Last 24 Hours (Table) 03/03/22 03/04/22 03/04/22 Range/Units 17:31 06:20 08:01 Hgb 12.6 L (13.0-17.5) gm/dL Plt Count 120 L (150-450) k/uL Chloride (98-107) mmol/L Creatinine (0.66-1.25) mg/dL Glucose (74-99) mg/dL POC Glucose (mg/dL) 127 H 144 H (75-99) mg/dL 03/04/22 Range/Units 08:01 Hgb (13.0-17.5) gm/dL Plt Count (150-450) k/uL Chloride 109 H (98-107) mmol/L Creatinine 0.53 L (0.66-1.25) mg/dL Glucose 134 H (74-99) mg/dL POC Glucose (mg/dL) (75-99) mg/dL
[2022-03-05 06:08] LABS: Basophils % (A) 1 %; Eosinophils # (A) 0.2 k/uL (0-0.7); Eosinophils % (A) 2 %; HGB 12.9 gm/dL (13.0-17.5); Lymphocytes % (A) 31 %; MCHC 33.1 g/dL (31.0-37.0); MCV 90.6 fL (80.0-100.0); Mean Platelet Volume 13.2; Monocytes # (A) 0.3 k/uL (0-1.0); Monocytes % (A) 6 %; Neutrophils # (A) 3.6 k/uL (1.3-7.7); Neutrophils % (A) 57 %; RDW 13.6 % (11.5-15.5); WBC 6.3 k/uL (3.8-10.6)
[2022-03-05 06:30] LABS: African American GFR (CKD) >90 (>60 ml/min/1.73 sqM); Anion Gap 6 mmol/L; Blood Urea Nitrogen 7 mg/dL (9-20); Calcium 8.1 mg/dL (8.4-10.2); Carbon Dioxide 24 mmol/L (22-30); Chloride 107 mmol/L (98-107); Glucose 110 mg/dL (74-99); Non-African American GFR(CKD) >90 (>60 ml/min/1.73 sqM); Sodium 137 mmol/L (137-145)
[2022-03-05 06:55] LABS: Potassium 3.7 mmol/L (3.5-5.1)
[2022-03-05] MEDS: PANTOPRAZOLE 40 MG TABLET PO SCH (10:39)
[2022-03-05] MEDS: DEXTROSE 5%-0.45% NACL 1,000 ML IV SCH ×4 (10:43→20:50)
--- NOTE | 2022-03-05 11:22 | P.PN ---
Subjective Progress Note Date: 03/05/22 Principal diagnosis: Altered mental status This is a 36-year-old male patient with a known history of polysubstance abuse with previous intubation and mechanical ventilatory support, hepatitis C,schizoaffective disorder, alcohol abuse, cocaine abuse, chronic tobacco dependence medication noncompliance. He is currently reading living at the [facility] and yesterday was found to have altered mental status and brought into the emergency room for the same. The patient did admit to using marijuana. Urine drug screen was positive for tricyclic antidepressants, amphet amines, methamphetamines, marijuana. He became quite aggressive and combative and placed in 4 point leather restraints and required Haldol, ketamine and Ativan. He was subsequently admitted to the intensive care unit. He was initiated on a Precedex drip currently at 0.4 micrograms per kilogram per hour. He is seen today in consultation in the ICU. He is currently resting comfortably in bed. Maintaining good O2 saturations in the 90s on 2 L/m per nasal cannula. He's been afebrile. Hemodynamically stable. He has 0.9 normal saline at 75 ML's per hour. Chest x-ray reveals no acute pulmonary process. white count 7.8. Hemoglobin 12.2. Platelets 126. Sodium 141. Potassium 4.1. Bicarb 23. BUN 25. Creatinine 0.82. Glucose 132. AST 105. ALT 162. Serum alcohol level less than 10. Reevaluated today on 03/04/2022, patient seems to be calm, remains on Precedex at 0.3, micrograms per kilo per hour, patient is doing well overall, IV fluid is D5 45 at 1 25 mL/h, he is on 2 L nasal cannula O2 sat is 94%. Patient is not requiring any Ativan at present, not requiring any Haldol. His CBC is relatively unremarkable electrolytes are normal renal profile is normal overall Precedex seems to be controlling his agitation is quite well. Reevaluated today on 03/05/2022, patient is now on room air, O2 sats is 97%, however he remains on Precedex at 0.2 mcg/kg/h, he is on IV fluid in the form of D5 45 at 1 25 mL per hour. Patient is generally weak, but improving steadily since admission. Remains calm, the Precedex seems to be helping, and we'll try to wean it down and hopefully stop it today. Labs today were noted to be fairly unremarkable including CBC, basic metabolic profile, and renal profile Objective - Vital Signs Vital signs: Vital Signs Temp 98.6 F 03/05/22 09:00 Pulse 54 L 03/05/22 10:00 Resp 15 03/05/22 10:00 BP 118/73 03/05/22 10:00 Pulse Ox 96 03/05/22 10:00 Intake & Output 03/04/22 03/05/22 03/05/22 18:59 06:59 18:59 Intake Total 7606.622 3289.072 523.204 Output Total 1305 675 365 Balance 367.835 806.072 158.204 Weight 90.9 kg Intake: IV 1575 1375 500 Dextrose 5%-0.45% NaCl 1, 1375 1375 500 000 ml @ 125 mls/hr IV . Q8H [facility] Rx#:[id number] Potassium Chloride 10 meq 200 In Water For Injection 1 100ml.bag @ 100 mls/hr IVPB Q1H [facility] Rx#: [id number] Intake, IV Titration 97.835 106.072 23.204 Amount Dexmedetomidine/0.9% NaCl 97.835 106.072 23.204 (Pmx) 400 mcg In Empty Bag 1 bag @ 0.2 MCG/KG/HR 4.99 mls/hr IV .Q20H3M [facility] Rx#:[id number] Output: Urine 1305 675 365 Other: Voiding Method Indwelling Catheter Indwelling Catheter - Exam Physical Exam: Revealed 36-year-old white male in no distress. On room air Head: Atraumatic, normocephalic. HEENT:[Neck is supple.] [No neck masses.] [No thyromegaly.] [No JVD.] Relatively dry mucous membranes noted. Chest: [Clear throughout, no crackles, no rhonchi, no wheezes.] Cardiac Exam: [Normal S1 and S2, no S3 gallop, no murmur.] Abdomen: [Soft, nontender, no megaly, no rebound, no guarding, normal bowel sounds.] Extremities: [No clubbing, no edema, no cyanosis.] Neurological Exam: Alert and oriented 3 focal deficits. Psychiatric: Normal mood affect and normal mental status examination. Skin: No rashes except for dry mucous membranes noted. - Labs CBC & Chem 7: 03/05/22 05:39 03/05/22 05:39 Labs: Abnormal Lab Results - Last 24 Hours (Table) 03/05/22 03/05/22 Range/Units 05:39 05:39 Hgb 12.9 L (13.0-17.5) gm/dL BUN 7 L (9-20) mg/dL Creatinine 0.58 L (0.66-1.25) mg/dL Glucose 110 H (74-99) mg/dL Calcium 8.1 L (8.4-10.2) mg/dL Assessment and Plan Assessment: Impression: Acute drug overdose with delirium Acute hypoglycemia, resolved. History of polysubstance abuse including antidepressant, amphetamine, methamphetamine, and marijuana. History of schizoaffective disorder. History of alcohol abuse. History of medication noncompliance. Recommendation: Taper and discontinue Precedex. Continue to monitor in the ICU Possible transfer out of the ICU in the next 24 hours as long as patient is off Precedex Continue IV fluid. Continue GI and DVT prophylaxis. nutritional services host evaluate for potential placement early next week. Time with Patient: Less than 30
--- NOTE | 2022-03-05 12:45 | P.CN ---
Psychiatric Consult - . Consult:: IDENTIFYING DATA: Patient is a 36-year-old male with a long history of schizoaffective disorder: Depressed type and polysubstance abuse with multiple admissions who is admitted for overdose/delirium and psychiatry was consulted for overdose HPI: When asked what brought him to the hospital, Mr. Rosenthal replies "I don't know" she states that apparently he overdosed on medications, but he does not remember the event. He denies suicidal thoughts, homicidal thoughts, and any hallucinations recently. He states that it is December 2021. 's states that he had been compliant with all of his medications while he was at [facility]. States that he is on Wellbutrin XL, BuSpar, Effexor XL, Seroquel PAST PSYCHIATRIC HISTORY: Patient has a a history of polysubstance abuse and schizoaffective disorder. Patient has been on several different medications in the past including paliperidone and Seroquel along with Zoloft, BuSpar and Effexor. Patient has had several different psychiatric hospitalizations and also has been court ordered in the past. Patient at this time is currently following up at [facility] and unsure whether patient has been getting his long-acting injection doses. Patient denies any history of suicide attempts in the past. PAST MEDICAL HISTORY: Hepatitis C, heart disease, liver disease, GERD, htn ALLERGIES: as per EMR. CHEMICAL DEPENDENCY HISTORY: Despite a long history of polysubstance use, patient denies any recent alcohol, marijuana, or other drug use. States that he smokes half a pack per day FAMILY PSYCHIATRIC/SUBSTANCE USE HISTORY: Denies SOCIAL HISTORY: States that he lives at [facility]. Denies source of income or any legal issues. MENTAL STATUS EXAM: General Appearance: 36 year old male, appears older than stated age, dressed in hospital gown, lying in bed Behavior: cooperative Speech: Patient's speech is [fluent and nonpressured.] Mood/Affect: Patient reports their mood is "good", affect is constricted and not congruent to mood Suicidality/Homicidality: Patient denies having any homicidal ideation intent or plan. [Denies any suicidal ideations intent or plan] Perceptions: Patient denies any visual hallucinations [and denies any auditory hallucinations] Though content/process: [There is no evidence of any delusional thought content and thought process is linear and goal-directed.] Memory and concentration: AOX2 Judgment and insight: [poor] IMPRESSIONS: Schizoaffective disorder: depressed type Polysubstance use disorder delirium (precidex being lowered today) PLAN: -start Wellbutrin XL 150 mg, buspar 5 mg tid, Effexor 75 mg daily, seroquel 50 mg qhs, and will eventually titrate to home doses (wellbutrin XL 450 mg, buspar 15 tid, Effexor 75 daily, seroquel 600 hs) -ordered CMP to assess liver function (last hospitalization, LFT's were high and effexor was d/c'ed) -Avoid benzos and opiates and encourage frequent orientation -Psychiatry will continue to follow] [] 03/05/22 12:41
[2022-03-05] MEDS: busPIRone HCl 5 MG TAB PO SCH ×3 (12:50→20:37)
[2022-03-05 13:44] LABS: ALT 140 U/L (4-49); Albumin 3.2 g/dL (3.5-5.0); Total Bilirubin 0.8 mg/dL (0.2-1.3); Total Protein 7.2 g/dL (6.3-8.2)
[2022-03-05 13:49] LABS: AST 91 U/L (17-59)
[2022-03-05 13:50] LABS: Alkaline Phosphatase 43 U/L (38-126)
[2022-03-05] MEDS ORDERED: Potassium Replacement Protocol 1 EACH MISC MISCELLANE PRN (15:26)
[2022-03-05] MEDS: POTASSIUM CHLORIDE 10 MEQ in WATER FOR INJECTION 1 100ML.BAG IVPB SCH ×2 (16:03→17:18)
[2022-03-05] MEDS: HYDROcodone/APAP 5-325MG 1 EACH TAB PO PRN (16:41)
[2022-03-05] MEDS: QUEtiapine 50 MG TAB PO SCH (20:37)
[2022-03-06] MEDS: DEXTROSE 5%-0.45% NACL 1,000 ML IV SCH (05:20)
[2022-03-06 06:21] LABS: African American GFR (CKD) >90 (>60 ml/min/1.73 sqM); Anion Gap 6 mmol/L; Blood Urea Nitrogen 6 mg/dL (9-20); Calcium 8.3 mg/dL (8.4-10.2); Carbon Dioxide 24 mmol/L (22-30); Chloride 111 mmol/L (98-107); Glucose 102 mg/dL (74-99); Non-African American GFR(CKD) >90 (>60 ml/min/1.73 sqM); Sodium 141 mmol/L (137-145)
[2022-03-06 06:36] LABS: Potassium 3.8 mmol/L (3.5-5.1)
[2022-03-06] MEDS: HYDROcodone/APAP 5-325MG 1 EACH TAB PO PRN ×2 (07:07→13:39)
[2022-03-06] MEDS: PANTOPRAZOLE 40 MG TABLET PO SCH (07:08)
[2022-03-06] MEDS: POTASSIUM CHLORIDE 10 MEQ in WATER FOR INJECTION 1 100ML.BAG IVPB SCH ×2 (07:44→09:14)
[2022-03-06 09:03] LABS: Basophils % (A) 1 %; Eosinophils # (A) 0.3 k/uL (0-0.7); Eosinophils % (A) 6 %; HCT 36.9 % (39.0-53.0); HGB 12.5 gm/dL (13.0-17.5); Lymphocytes # (A) 1.3 k/uL (1.0-4.8); Lymphocytes % (A) 31 %; MCH 29.4 pg (25.0-35.0); MCV 86.4 fL (80.0-100.0); Mean Platelet Volume 8.8; Monocytes # (A) 0.3 k/uL (0-1.0); Monocytes % (A) 7 %; Neutrophils # (A) 2.3 k/uL (1.3-7.7); Neutrophils % (A) 52 %; Platelet Count 134 k/uL (150-450); RBC 4.26 m/uL (4.30-5.90); RDW 13.7 % (11.5-15.5); WBC 4.4 k/uL (3.8-10.6)
[2022-03-06] MEDS: busPIRone HCl 5 MG TAB PO SCH ×3 (09:16→21:16)
[2022-03-06] MEDS: buPROPion XL 150 MG TAB.ER.24H PO SCH (09:17)
[2022-03-06] MEDS: VENLAFAXINE HCL ER 75 MG CAP PO SCH (09:17)
--- NOTE | 2022-03-06 10:36 | P.PN ---
Subjective Progress Note Date: 03/06/22 Principal diagnosis: Altered mental status This is a 36-year-old male patient with a known history of polysubstance abuse with previous intubation and mechanical ventilatory support, hepatitis C,schizoaffective disorder, alcohol abuse, cocaine abuse, chronic tobacco dependence medication noncompliance. He is currently reading living at the [facility] and yesterday was found to have altered mental status and brought into the emergency room for the same. The patient did admit to using marijuana. Urine drug screen was positive for tricyclic antidepressants, amphet amines, methamphetamines, marijuana. He became quite aggressive and combative and placed in 4 point leather restraints and required Haldol, ketamine and Ativan. He was subsequently admitted to the intensive care unit. He was initiated on a Precedex drip currently at 0.4 micrograms per kilogram per hour. He is seen today in consultation in the ICU. He is currently resting comfortably in bed. Maintaining good O2 saturations in the 90s on 2 L/m per nasal cannula. He's been afebrile. Hemodynamically stable. He has 0.9 normal saline at 75 ML's per hour. Chest x-ray reveals no acute pulmonary process. white count 7.8. Hemoglobin 12.2. Platelets 126. Sodium 141. Potassium 4.1. Bicarb 23. BUN 25. Creatinine 0.82. Glucose 132. AST 105. ALT 162. Serum alcohol level less than 10. Reevaluated today on 03/04/2022, patient seems to be calm, remains on Precedex at 0.3, micrograms per kilo per hour, patient is doing well overall, IV fluid is D5 45 at 1 25 mL/h, he is on 2 L nasal cannula O2 sat is 94%. Patient is not requiring any Ativan at present, not requiring any Haldol. His CBC is relatively unremarkable electrolytes are normal renal profile is normal overall Precedex seems to be controlling his agitation is quite well. Reevaluated today on 03/05/2022, patient is now on room air, O2 sats is 97%, however he remains on Precedex at 0.2 mcg/kg/h, he is on IV fluid in the form of D5 45 at 1 25 mL per hour. Patient is generally weak, but improving steadily since admission. Remains calm, the Precedex seems to be helping, and we'll try to wean it down and hopefully stop it today. Labs today were noted to be fairly unremarkable including CBC, basic metabolic profile, and renal profile Reevaluated today on 03/06/2022, patient remains in the ICU, he is off Precedex, he was seen by psychiatry yesterday and he was placed on Wellbutrin, BuSpar, Effexor, Seroquel, and the patient seems to be doing well, he seems to be calm, no major issues overnight, and overall the patient is doing much better compared to how he felt when he came in. WBC is 4.4 hemoglobin 12.5 and electrolytes abnormal renal profile is normal. Hence I plan to transfer the patient out of the ICU today to a regular medical floor. Objective - Vital Signs Vital signs: Vital Signs Temp 97.9 F 03/06/22 08:00 Pulse 67 03/06/22 08:00 Resp 17 03/06/22 08:00 BP 111/48 03/06/22 07:00 Pulse Ox 97 03/06/22 08:00 Intake & Output 03/05/22 03/06/22 03/06/22 18:59 06:59 18:59 Intake Total 7310.533 2127 900 Output Total 2315 1205 295 Balance -452.990 170 605 Weight 90 kg Intake: IV 1625 1375 500 Dextrose 5%-0.45% NaCl 1, 1625 1375 500 000 ml @ 125 mls/hr IV . Q8H [facility] Rx#:[id number] Intake, IV Titration 237.010 Amount Dexmedetomidine/0.9% NaCl 37.010 (Pmx) 400 mcg In Empty Bag 1 bag @ 0.2 MCG/KG/HR 4.99 mls/hr IV .Q20H3M [facility] Rx#:[id number] Potassium Chloride 10 meq 200 In Water For Injection 1 100ml.bag @ 100 mls/hr IVPB Q1H [facility] Rx#: [id number] Oral 400 Output: Urine 2315 1205 295 Other: Voiding Method Indwelling Catheter Indwelling Catheter - Exam Physical Exam: Revealed 36-year-old white male in no distress. On room air Head: Atraumatic, normocephalic. HEENT:[Neck is supple.] [No neck masses.] [No thyromegaly.] [No JVD.] Relatively dry mucous membranes noted. Chest: [Clear throughout, no crackles, no rhonchi, no wheezes.] Cardiac Exam: [Normal S1 and S2, no S3 gallop, no murmur.] Abdomen: [Soft, nontender, no megaly, no rebound, no guarding, normal bowel sounds.] Extremities: [No clubbing, no edema, no cyanosis.] Neurological Exam: Alert and oriented 3 focal deficits. Psychiatric: Normal mood affect and normal mental status examination. Skin: No rashes. - Labs CBC & Chem 7: 03/06/22 08:47 03/06/22 05:36 Labs: Abnormal Lab Results - Last 24 Hours (Table) 03/05/22 03/06/22 03/06/22 Range/Units 05:39 05:36 08:47 RBC 4.26 L (4.30-5.90) m/uL Hgb 12.5 L (13.0-17.5) gm/dL Hct 36.9 L (39.0-53.0) % Plt Count 134 L (150-450) k/uL Chloride 111 H (98-107) mmol/L BUN 7 L 6 L (9-20) mg/dL Creatinine 0.58 L 0.55 L (0.66-1.25) mg/dL Glucose 110 H 102 H (74-99) mg/dL Calcium 8.1 L 8.3 L (8.4-10.2) mg/dL AST 91 H (17-59) U/L ALT 140 H (4-49) U/L Albumin 3.2 L (3.5-5.0) g/dL Assessment and Plan Assessment: Impression: Acute drug overdose with delirium Acute hypoglycemia, resolved. History of polysubstance abuse including antidepressant, amphetamine, methamphetamine, and marijuana. History of schizoaffective disorder. History of alcohol abuse. History of medication noncompliance. Recommendation: Keep patient off Precedex today. Continue medications as ordered by psychiatry. For his schizoaffective disorder. Transfer patient to regular medical floor today. Advanced diet as tolerated. Continue IV fluid. Continue GI and DVT prophylaxis. oil well services dispatcher evaluate for potential placement early next week. Time with Patient: Less than 30
[2022-03-06] MEDS: QUEtiapine 50 MG TAB PO SCH (21:16)
[2022-03-07] MEDS: VENLAFAXINE HCL ER 75 MG CAP PO SCH (08:04)
[2022-03-07] MEDS: busPIRone HCl 5 MG TAB PO SCH (08:04)
[2022-03-07] MEDS: PANTOPRAZOLE 40 MG TABLET PO SCH (08:04)
[2022-03-07] MEDS: buPROPion XL 150 MG TAB.ER.24H PO SCH (08:04)
--- NOTE | 2022-03-07 09:45 | P.PN ---
Subjective Progress Note Date: 03/07/22 Principal diagnosis: Altered mental status, polysubstance abuse This is a 36-year-old male patient with a known history of polysubstance abuse with previous intubation and mechanical ventilatory support, hepatitis C,schizoaffective disorder, alcohol abuse, cocaine abuse, chronic tobacco dependence medication noncompliance. He is currently reading living at the [facility] and yesterday was found to have altered mental status and brought into the emergency room for the same. The patient did admit to using marijuana. Urine drug screen was positive for tricyclic antidepressants, amphetamines, methamphetamines, marijuana. He became quite aggressive and combative and placed in 4 point leather restraints and required Haldol, ketamine and Ativan. He was subsequently admitted to the intensive care unit. He was initiated on a Precedex drip currently at 0.4 micrograms per kilogram per hour. He is seen today in consultation in the ICU. He is currently resting comfortably in bed. Maintaining good O2 saturations in the 90s on 2 L/m per nasal cannula. He's been afebrile. Hemodynamically stable. He has 0.9 normal saline at 75 ML's per hour. Chest x-ray reveals no acute pulmonary process. white count 7.8. Hemoglobin 12.2. Platelets 126. Sodium 141. Potassium 4.1. Bicarb 23. BUN 25. Creatinine 0.82. Glucose 132. AST 105. ALT 162. Serum alcohol level less than 10. Reevaluated today on 03/04/2022, patient seems to be calm, remains on Precedex at 0.3, micrograms per kilo per hour, patient is doing well overall, IV fluid is D5 45 at 1 25 mL/h, he is on 2 L nasal cannula O2 sat is 94%. Patient is not requiring any Ativan at present, not requiring any Haldol. His CBC is relatively unremarkable electrolytes are normal renal profile is normal overall Precedex seems to be controlling his agitation is quite well. Reevaluated today on 03/05/2022, patient is now on room air, O2 sats is 97%, however he remains on Precedex at 0.2 mcg/kg/h, he is on IV fluid in the form of D5 45 at 1 25 mL per hour. Patient is generally weak, but improving steadily since admission. Remains calm, the Precedex seems to be helping, and we'll try to wean it down and hopefully stop it today. Labs today were noted to be fairly unremarkable including CBC, basic metabolic profile, and renal profile Reevaluated today on 03/06/2022, patient remains in the ICU, he is off Precedex, he was seen by psychiatry yesterday and he was placed on Wellbutrin, BuSpar, Effexor, Seroquel, and the patient seems to be doing well, he seems to be calm, no major issues overnight, and overall the patient is doing much better compared to how he felt when he came in. WBC is 4.4 hemoglobin 12.5 and electrolytes abnormal renal profile is normal. Hence I plan to transfer the patient out of the ICU today to a regular medical floor. On 03/07/2022 patient seen in follow-up on medical surgical floor, he had been transferred out of the intensive care unit yesterday, his had no acute events overnight, he is resting comfortably in bed, easily arousable to voice, he is oriented 3, denies any specific complaints. Breathing comfortably, room air pulse ox is 94-97%, his been afebrile, hemodynamically has been stable. No seizure activity overnight, he is calm and cooperative. Today's labs have been reviewed White blood cell count is 4.4, hemoglobin is 12.5, platelet count is 134, sodium is 141, potassium is 3.8, chloride is 111, B1 is 6 and creatinine 0.55. Patient continues on Seroquel 50 mg at bedtime, Effexor X are, he remains on CIWA protocol, as needed doses of Haldol, and BuSpar. Objective - Vital Signs Vital signs: Vital Signs Temp 97.8 F 03/07/22 04:43 Pulse 53 L 03/07/22 04:43 Resp 18 03/07/22 04:43 BP 98/59 03/07/22 04:43 Pulse Ox 94 L 03/07/22 04:43 Intake & Output 03/06/22 03/07/22 03/07/22 18:59 06:59 18:59 Intake Total 1140 500 360 Output Total 645 Balance 495 500 360 Weight 86.5 kg Intake: IV 500 Dextrose 5%-0.45% NaCl 1, 500 000 ml @ 125 mls/hr IV . Q8H [facility] Rx#:[id number] Oral 640 500 360 Output: Urine 645 Other: Voiding Method Indwelling Catheter Toilet Urinal # Voids 2 1 - Exam GENERAL EXAM: Alert, very pleasant, 36-year-old white male, on room air, pulse ox of 94-97% comfortable in no apparent distress. HEAD: Normocephalic/atraumatic. EYES: Normal reaction of pupils, equal size. Conjunctiva pink, sclera white. NOSE: Clear with pink turbinates. THROAT: No erythema or exudates. NECK: No masses, no JVD, no thyroid enlargement, no adenopathy. CHEST: No chest wall deformity. Symmetrical expansion. LUNGS: Equal air entry with no crackles, wheeze, rhonchi or dullness. CVS: Regular rate and rhythm, normal S1 and S2, no gallops, no murmurs, no rubs ABDOMEN: Soft, nontender. No hepatosplenomegaly, normal bowel sounds, no guarding or rigidity. EXTREMITIES: No clubbing, no edema, no cyanosis, 2+ pulses and upper and lower extremities. MUSCULOSKELETAL: Muscle strength and tone normal. SPINE: No scoliosis or deformity SKIN: No rashes CENTRAL NERVOUS SYSTEM: Alert and oriented -3. No focal deficits, tone is normal in all 4 extremities. PSYCHIATRIC: Alert and oriented -3. Appropriate affect. Intact judgment and i nsight. - Labs CBC & Chem 7: 03/06/22 08:47 03/06/22 05:36 Assessment and Plan Plan: Assessment: #1. Acute drug overdose #2. Acute hypoglycemia, resolved #3. History of polysubstance abuse including antidepressants, amphetamines, methamphetamines and marijuana #4. Acute delirium, improving #5. History of schizoaffective disorder #6. History of alcohol abuse #7. History of medical noncompliance Plan: Patient is doing well after being transferred out of intensive care unit yesterday Awake and alert, calm and cooperative, no agitation, responding appropriately Vital signs are stable Tolerating oral diet GI/DVT Psychiatry [facility] Critical care will sign off, will follow on an as-needed basis I have personally seen and examined the patient, performed the documentation and the assessment and plan as written. Number of minutes spent on the visit: [10] Time with Patient: Less than 30
[2022-03-07 10:22] LABS: African American GFR (CKD) 134.1 (60.0-200.0); Albumin 3.5 g/dL (3.8-4.9); Albumin/Globulin Ratio 1.03 (1.60-3.17); Anion Gap 10.5 mmol/L (10.00-18.00); BUN/Creat Ratio 13.63 Ratio (12.00-20.00); Blood Urea Nitrogen 10.9 mg/dL (9.0-27.0); Carbon Dioxide 22.5 mmol/L (20.0-27.5); Globulin 3.4 g/dL (1.6-3.3); Non-African American GFR(CKD) 115.7 (60.0-200.0); Potassium 4.1 mmol/L (3.5-5.5); Total Bilirubin 0.2 mg/dL (0.30-1.20); Total Protein 6.9 g/dL (6.2-8.2)
[2022-03-07 11:48] VITALS: BP 122/69; PULSE 76; RESP 16; TEMP 98
[2022-03-07] MEDS: HYDROcodone/APAP 5-325MG 1 EACH TAB PO PRN (12:43)
[2022-03-07] MEDS ORDERED: NICOTINE 21MG/24HR PATCH TRANSDERM SCH (12:45)
--- NOTE | 2022-03-07 13:05 | P.PN ---
Progress Note - Text Progress Note Date: 03/07/22 Interval History: Patient was seen today for psychiatric follow-up. Patient was pacing in and out of his room today. Patient's daughter states that patient has been fairly appropriate and calm her today. Patient claims that he just smoked "weed" and does not know why she had methamphetamine in his system. He states that "somebody must at least it with something". He claims that he did not overdose on any medications and does not know what happened. He states that he is feeling "fine now" and is denying any depression or anxiety. He claims he wants to be discharged and go to his friend's house. He was refusing rehab today. At this time patient denies any suicidal or homical ideations, intent or plan. Patient denies any auditory, visual hallucinations and denies any paranoia or delusions. Patient denies any side effects from the medications and has been compliant with meds. He continues to have superficial/poor insight and judgment. Mental Status Exam: General Appearance: 36 year old male, appears older than stated age, dressed in hospital gown, Behavior: Attempts to be cooperative. Superficial at times. Speech: Patient's speech is fluent and nonpressured. Mood/Affect: Patient reports their mood is "good", affect is constricted and not congruent Suicidality/Homicidality: Patient denies having any homicidal ideation intent or plan. Denies any suicidal ideations intent or plan Perceptions: Patient denies any visual hallucinations and denies any auditory hallucinations Though content/process: There is no evidence of any delusional thought content and thought process is linear and goal-directed. Memory and concentration: AOX2-3, fair attention span. Judgment and insight: Chronically poor IMPRESSIONS: Schizoaffective disorder: depressed type Polysubstance use disorder PLAN: -At this time patient DOES NOT meet criteria for inpatient psychiatric admission. -Would recommend the following medication changes/additions: Continue with current medications as prescribed. We'll increase Seroquel to 100 mg daily at bedtime for mood stabilization/psychosis. according to [facility] records which were reviewed, patient was switched off of Haldol D and only taking PO meds. Please only give patient 2 weeks supply of meds. -Patient currently follows up with [facility] with Dr Edouard. -Door Attendant spoke with patient about substance abuse and the harmful effects on medical and mental health, patient verbally understood and agreed. -Patient is refusing rehab at this time. -Communicated plan to patient's nurse and ALFALFA DEHYDRATOR OPERATOR -Psychiatry will sign off at this time -Please contact with any questions.
[2022-03-07] MEDS ORDERED: QUEtiapine 100 MG TAB PO SCH (21:00)
--- NOTE | 2022-03-08 03:18 | P.DS ---
Providers Date of admission: 03/02/22 13:34 Expected date of discharge: 03/07/22 Attending physician: Abelardo Potts Consults: 03/02/22 20:40 Consult Physician Stat Consulting Provider: Leila Morin Consult Reason/Comments: icu management Do you want consulting provider notified?: Yes 03/04/22 19:18 Consult Physician Stat Consulting Provider: Gamal Ruvalcaba Consult Reason/Comments: overdose/pasy psych history Do you want consulting provider notified?: Yes, Notify in am Primary care physician: Stated None Hospital Course: Final diagnosis Change in mental status, possibly acute drug overdose including methamphetamine, tricyclics as well as THC, toxic encephalopathy Gastroesophageal reflux disease Hypertension History of chronic liver disease secondary to hepatitis C GI prophylaxis DVT prophylaxis Full code Discharge disposition Patient is being discharged in a stable condition with guarded prognosis to home. Patient will follow-up with pcp upon discharge. Patient was seeing Dr. Ventura and reports to having a new provider although unsure of his name. patient to continue with [facility] on discharge. Total time taken is greater than 35 minutes. Hospital course This is an 36-year-old male who was recently admitted with drug overdose and was being closely monitored. Meth use. Patient was briefly in the ICU for close monitoring and maintained on precedex. Patient stable and transferred to same day surgery center and evaluated by psychiatry and does not meet inpatient criteria. Patient does have legal guardian and patient was [facility] and unable to return. Patient reports to having a friend and going to stay with them. Patient denies any suicidal thoughts and would like to be discharged today. Patient has no personal belongings and is concerned about his phone. Social work and nursing staff assisting with contacting [facility] to see if phone is still there. Currently no reports of chest pain, shortness of breath, or palpitations. Patient is afebrile. No reports of nausea or vomiting and patient is tolerating diet. Guarded prognosis as patient has had multiple hospitalizations and readmission for suicide and drug abuse. On exam vital signs are stable. Cardio S1, S2 are muffled. Respiratory shows diminished breath sounds at the bases with no wheezing or rhonchi noted. Abdomen is soft and nontender. Nervous system shows no focal deficits and gait is steady. Please refer to medication reconciliation sheet for a list of medications. The impression and plan of care has been dictated by Marlena Roque, Nurse Practitioner as directed. Dr. Merle MD I have performed a history and examination and MDM of this patient, discussed the same with the dictator, and agree with the dictator's assessment and plan as written ,documented as a scribe. Based on total visit time, I have performed more than 50% of the visit. Patient Condition at Discharge: Stable Plan - Discharge Summary New Discharge Prescriptions: New Nicotine 21Mg/24Hr Patch [Habitrol] 1 patch TRANSDERM DAILY 30 Days #30 patch busPIRone HCl [Buspar] 5 mg PO TID 30 Days #90 tab QUEtiapine [SEROquel] 100 mg PO HS 30 Days #30 tab buPROPion XL [Wellbutrin XL] 150 mg PO DAILY 30 Days #30 tablet Continue Venlafaxine HCl ER [Effexor XR] 75 mg PO DAILY 30 Days #30 cap Discontinued busPIRone HCL 15 mg PO TID buPROPion HCL [buPROPion HCL XL] 450 mg PO DAILY QUEtiapine [SEROquel] 600 mg PO HS Discharge Medication List Nicotine 21Mg/24Hr Patch [Habitrol] 1 patch TRANSDERM DAILY 30 Days #30 patch 03/07/22 [Rx] QUEtiapine [SEROquel] 100 mg PO HS 30 Days #30 tab 03/07/22 [Rx] Venlafaxine HCl ER [Effexor XR] 75 mg PO DAILY 30 Days #30 cap 03/07/22 [Rx] buPROPion XL [Wellbutrin XL] 150 mg PO DAILY 30 Days #30 tablet 03/07/22 [Rx] busPIRone HCl [Buspar] 5 mg PO TID 30 Days #90 tab 03/07/22 [Rx] Follow up Appointment(s)/Referral(s): Jocelyn Ventura MD [REFERRING] - 1-2 Days Ranulfo Garcia DO [Doctor of Osteopathic Medicine] - 1 Week [facility] [NON-STAFF] - 1-2 Days ([facility] to please assist patient with follow-up appt. with medical doctor. Dr. Knapp office is no longer seeing patient. ) Patient Instructions/Handouts: Bupropion (By mouth), Buspirone (By mouth), Venlafaxine (By mouth), Quetiapine (By mouth), Narcotic Safety (DC), Abuse of Alcohol (DC) Activity/Diet/Wound Care/Special Instructions: Activity Limited until follow-up Follow-up and establish with primary care provider Continue following with [facility] Continue with medications as prescribed Avoid any alcohol, tobacco, drug use Discharge/Stand Alone Forms: AA Meetings [facility], Who Do I Call?, Community Resources, Outpatient Counseling Discharge Disposition: HOME SELF-CARE
== END 2022-03-07 16:17 | disposition home or self-care (01) | DRG 917 ==
LOC: EC 08:16 → 3SCARD 13:34 → 2SICU 18:10 → 5NMEDONC 03-06 13:31
PROVIDERS: ADMIT Hospitalist; ATTEND Hospitalist
DX: T43.621A Poisoning by amphetamines, accidental (unintentional), initial encounter (principal); G92.8 Other toxic encephalopathy; F15.121 Other stimulant abuse with intoxication delirium; B18.2 Chronic viral hepatitis C; F12.90 Cannabis use, unspecified, uncomplicated; F17.210 Nicotine dependence, cigarettes, uncomplicated; I10 Essential (primary) hypertension; E16.2 Hypoglycemia, unspecified; K21.9 Gastro-esophageal reflux disease without esophagitis; F25.1 Schizoaffective disorder, depressive type; F10.10 Alcohol abuse, uncomplicated; Z78.1 Physical restraint status; Z79.899 Other long term (current) drug therapy; Z91.19 Patient's noncompliance with other medical treatment and regimen; Z91.14 Patient's other noncompliance with medication regimen; Z82.49 Family history of ischemic heart disease and other diseases of the circulatory system
CPT/HCPCS: 36415; 71045; 80048; 80053; 80143; 80179; 80306; 80320; 81003; 83605; 85025; 93005; 96361; 96372; 96374; 96375; 96376; 99291

== ENCOUNTER 2022-03-08 01:19 | Emergency (ER) | payer OTHER ==
[2022-03-08] MEDS ORDERED: IBUPROFEN 600 MG TAB PO STA (01:40)
--- NOTE | 2022-03-08 01:44 | ED ---
General Adult HPI - General Source: patient, RN notes reviewed, old records reviewed Mode of arrival: ambulatory Limitations: no limitations - History of Present Illness -: days(s) (1) Location: back Radiation: non-radiation Severity scale (1-10): 9 Quality: aching Consistency: intermittent Improves with: none <Folrin Jacome - Last Filed: 03/08/22 02:31> <GeovanyRanulfo Michelle - Last Filed: 03/08/22 08:52> - General Chief complaint: Psychiatric Symptoms Stated complaint: Suicidal Time Seen by Provider: 03/08/22 01:35 - History of Present Illness Initial comments: 36-year-old male presents ambulatory with complaints of suicidal ideation today. Patient was seen by Dr. Ruvalcaba today and refused rehab. At that time he was not suicidal. He states that he left and went back to where he was staying and was told he needed to find somewhere else to stay. He said he's been walking around in the rain all day and decided to come to the hospital when he started to have thoughts of suicide. His plan was to take all his medications. He states he did not take his medications today although he did bring them with him. He is a lso complaining of back pain. He denies any abdominal pain, chest pain, shortness of breath or fevers. He states he did eat breakfast this morning but doesn't remember what he ate. Patient wants to be admitted to the hospital. His last marijuana use was a week ago, denies any methamphetamine use or alcohol use. He does have a history of hep C, degenerative disc disease, hypertension, bipolar, schizo hernia encephalitis (Florin Jacome) - Related Data Previous Rx's Medication Instructions Recorded Nicotine 21Mg/24Hr Patch [Habitrol] 1 patch TRANSDERM DAILY 30 Days 03/07/22 #30 patch QUEtiapine [SEROquel] 100 mg PO HS 30 Days #30 tab 03/07/22 Venlafaxine HCl ER [Effexor XR] 75 mg PO DAILY 30 Days #30 cap 03/07/22 buPROPion XL [Wellbutrin XL] 150 mg PO DAILY 30 Days #30 tablet 03/07/22 busPIRone HCl [Buspar] 5 mg PO TID 30 Days #90 tab 03/07/22 Allergies Allergy/AdvReac Type Severity Reaction Status Date / Time No Known Allergies Allergy Verified 03/08/22 01:24 Review of Systems ROS Other: All systems not noted in ROS Statement are negative. <jazzmineFlorin - Last Filed: 03/08/22 02:31> ROS Other: All systems not noted in ROS Statement are negative. <Ranulfo Armenta - Last Filed: 03/08/22 08:52> ROS Statement: Those systems with pertinent positive or pertinent negative responses have been documented in the HPI. Past Medical History Past Medical History: No Reported History, Unable to Obtain, GERD/Reflux, Hypertension, Liver Disease Additional Past Medical History / Comment(s): Hepatitis C, DDD, back pain, bilateral carpel tunnel syndrome. He reports that he has heart disease that was found when he had kidney problems but he denies having a stress test or cardiac catheterization. History of Any Multi-Drug Resistant Organisms: None Reported MDRO Source:: unknown Past Surgical History: No Surgical Hx Reported, Unable to Obtain Additional Past Surgical History / Comment(s): Pt states he has had numerous "cysts" removed from where he injected IV drugs. Past Anesthesia/Blood Transfusion Reactions: No Reported Reaction, Unable to Obtain Additional Past Anesthesia/Blood Transfusion Reaction / Comment(s): Pt states he has never had surgery. Past Psychological History: Anxiety, Depression Smoking Status: Current every day smoker Past Alcohol Use History: None Reported Past Drug Use History: Marijuana - Past Family History Mother Family Medical History: Unable to Obtain, Rheumatoid Arthritis (RA) Additional Family Medical History / Comment(s): Mother is . Father Family Medical History: Coronary Artery Disease (CAD) <Florin Jacome - Last Filed: 03/08/22 02:31> General Exam Limitations: no limitations General appearance: alert, in no apparent distress Head exam: Present: atraumatic Eye exam: Absent: scleral icterus, conjunctival injection, periorbital swelling ENT exam: Present: normal exam, normal oropharynx, mucous membranes moist Neck exam: Present: full ROM. Absent: tenderness, meningismus Respiratory exam: Present: normal lung sounds bilaterally. Absent: respiratory distress, accessory muscle use Cardiovascular Exam: Present: regular rate, normal rhythm, normal heart sounds GI/Abdominal exam: Present: soft, normal bowel sounds. Absent: distended, tenderness Extremities exam: Present: normal capillary refill. Absent: tenderness, pedal edema Back exam: Absent: tenderness, CVA tenderness (R), CVA tenderness (L) Neurological exam: Present: alert, normal gait Psychiatric exam: Present: normal affect, normal mood, depressed, suicidal ideation. Absent: homicidal ideation Skin exam: Present: warm, dry, normal color. Absent: cyanosis, diaphoretic <Florin Jacome - Last Filed: 03/08/22 02:31> Course Vital Signs 03/08/22 01:22 Temperature 98.5 F Pulse Rate 84 Respiratory 18 Rate Blood Pressure 141/82 O2 Sat by Pulse 100 Oximetry Medical Decision Making <Florin Jacome - Last Filed: 03/08/22 02:31> <Ranulfo Armenta - Last Filed: 03/08/22 08:52> - Medical Decision Making 36-year-old male presents with complaints of suicidal ideations. States he was going to take all of his medications. Patient was seen by Dr. Ruvalcaba today. He did not meet criteria for inpatient psychiatric admission and was denying suicidal ideations at that time. The plan was to increase Seroquel to 100 mg daily at bedtime. Continue his current medications as prescribed. Patient states that he did not take any of his medications today. Denies any alcohol or drug use. He denies any nausea vomiting diarrhea or fevers. He does have chronic low back pain and was given Motrin. EPS notified as patient wants to be admitted to the hospital. (Florin Jacome) Patient was evaluated by EPS and felt to be safe for discharge. He is no longer suicidal. [facility] and they contacted for evaluation and unable to pick the patient up directly from the emergency department for urgent evaluation. (Ranulfo Armenta) Disposition <Florin Jacome - Last Filed: 03/08/22 02:31> Is patient prescribed a controlled substance at d/c from ED?: No Time of Disposition: 08:52 <Ranulfo Armenta - Last Filed: 03/08/22 08:52> Clinical Impression: Depression, Suicidal ideation Disposition: HOME SELF-CARE Condition: Fair Instructions (If sedation given, give patient instructions): Depression (ED) Referrals: None,Stated [Primary Care Provider] - 1-2 days Jose Rafael Kimball MD [STAFF PHYSICIAN] - 1-2 days
[2022-03-08 09:19] VITALS: BP 152/90; PULSE 721; RESP 20; TEMP 97.9
== END 2022-03-08 09:19 | disposition home or self-care (01) ==
LOC: EC 01:19
DX: F32.A Depression, unspecified (principal); R45.851 Suicidal ideations; I10 Essential (primary) hypertension; F17.200 Nicotine dependence, unspecified, uncomplicated
CPT/HCPCS: 82075; 99284

== ENCOUNTER 2022-06-26 12:16 | Emergency (ER) | payer OTHER ==
[2022-06-26 12:21] VITALS: TEMP 98.1
--- NOTE | 2022-06-26 12:45 | ED ---
General Adult HPI - General Chief complaint: Psychiatric Symptoms Stated complaint: mental health Time Seen by Provider: 06/26/22 12:26 Source: patient, RN notes reviewed, old records reviewed Mode of arrival: ambulatory Limitations: no limitations - History of Present Illness Initial comments: 36-year-old male presenting for psychiatric evaluation. Patient has been brought in on a pickup order. Apparently he has not had his medication. Patient is homeless. He has no complaints time my evaluation. He's been calm and cooperative according to local police during transport. - Related Data Home Medications Medication Instructions Recorded Confirmed Haloperidol Decanoate [Haldol D] 200 mg IM Q28D 06/26/22 06/26/22 QUEtiapine FUMARATE [SEROquel XR] 300 mg PO HS 06/26/22 06/26/22 QUEtiapine XR [SEROquel XR] 50 mg PO HS 06/26/22 06/26/22 busPIRone HCL [Buspar] 30 mg PO BID 06/26/22 06/26/22 Previous Rx's Medication Instructions Recorded Venlafaxine HCl ER [Effexor XR] 75 mg PO DAILY #30 capsule 03/20/22 Allergies Allergy/AdvReac Type Severity Reaction Status Date / Time No Known Allergies Allergy Verified 06/26/22 14:14 Review of Systems ROS Statement: Those systems with pertinent positive or pertinent negative responses have been documented in the HPI. ROS Other: All systems not noted in ROS Statement are negative. Past Medical History Past Medical History: No Reported History, Unable to Obtain, GERD/Reflux, Hypertension, Liver Disease Additional Past Medical History / Comment(s): Hepatitis C, DDD, back pain, bilateral carpel tunnel syndrome. He reports that he has heart disease that was found when he had kidney problems but he denies having a stress test or cardiac catheterization. History of Any Multi-Drug Resistant Organisms: None Reported MDRO Source:: unknown Past Surgical History: No Surgical Hx Reported, Unable to Obtain Additional Past Surgical History / Comment(s): Pt states he has had numerous "cysts" removed from where he injected IV drugs. Past Anesthesia/Blood Transfusion Reactions: No Reported Reaction, Unable to Obtain Additional Past Anesthesia/Blood Transfusion Reaction / Comment(s): Pt states he has never had surgery. Past Psychological History: Anxiety, Depression Smoking Status: Current every day smoker Past Alcohol Use History: None Reported Past Drug Use History: Heroin, Marijuana, Methamphetamine - Past Family History Mother Family Medical History: Unable to Obtain, Rheumatoid Arthritis (RA) Additional Family Medical History / Comment(s): Mother is . Father Family Medical History: Coronary Artery Disease (CAD) General Exam Limitations: no limitations General appearance: alert, in no apparent distress Head exam: Present: atraumatic, normocephalic Eye exam: Present: normal appearance, PERRL ENT exam: Present: normal exam Neck exam: Present: normal inspection. Absent: tenderness, meningismus Respiratory exam: Present: normal lung sounds bilaterally. Absent: respiratory distress Cardiovascular Exam: Present: regular rate, normal rhythm GI/Abdominal exam: Present: soft. Absent: distended Extremities exam: Present: normal capillary refill. Absent: pedal edema Neurological exam: Present: alert, oriented X3, CN II-XII intact. Absent: motor sensory deficit Psychiatric exam: Present: normal affect, normal mood Skin exam: Present: warm, dry, intact Course Vital Signs 06/26/22 12:17 Temperature 98.1 F Pulse Rate 70 Respiratory 20 Rate Blood Pressure 108/71 O2 Sat by Pulse 100 Oximetry - Reevaluation(s) Reevaluation #1: 06/26/22 12:45 Clear for EPS. Medical Decision Making - Medical Decision Making Patient given Haldol depot. cleared by EPS for discharge. I agree with this plan. Disposition Clinical Impression: Noncompliance with medications, Noncompliance with treatment Disposition: HOME SELF-CARE Condition: Fair Instructions (If sedation given, give patient instructions): Schizophrenia (ED) Additional Instructions: Follow-up with [facility] Is patient prescribed a controlled substance at d/c from ED?: No Referrals: None,Stated [Primary Care Provider] - 1-2 days Time of Disposition: 15:37
[2022-06-26] MEDS ORDERED: HALOPERIDOL DECANOATE 100 MG/ML 1 ML VIAL IM ONE (15:37)
[2022-06-26 16:01] VITALS: BP 130/81; PULSE 65; RESP 16
== END 2022-06-26 16:01 | disposition home or self-care (01) ==
LOC: EC 12:16
DX: Z91.14 Patient's other noncompliance with medication regimen (principal); I10 Essential (primary) hypertension; F17.200 Nicotine dependence, unspecified, uncomplicated
CPT/HCPCS: 82075; 99284; 96372; J1631

== ENCOUNTER 2022-08-04 16:12 | Emergency (ER) | payer OTHER ==
[2022-08-04] MEDS ORDERED: NALOXONE 0.4 MG/ML 1 ML VIAL IVP STA (16:20)
--- NOTE | 2022-08-04 16:27 | ED ---
General Adult HPI - General Stated complaint: Overdose Time Seen by Provider: 08/04/22 16:12 Source: patient, RN notes reviewed, old records reviewed - History of Present Illness Initial comments: This is a 36-year-old male who presents emergency Department with police and EMS. [facility] was [facility] and would not leave so the police were called the police got there the patient was not responsive as eyes were pinpoint and EMS was called. When EMS arrived the patient still had respiratory rate of 12 so they were not administering any Narcan even though they suspected a heroin overdose. Police state the patient is known to them for heroin abuse. No other history is available this time. - Related Data Home Medications Medication Instructions Recorded Confirmed Haloperidol Decanoate [Haldol D] 200 mg IM Q28D 06/26/22 06/26/22 QUEtiapine FUMARATE [SEROquel XR] 300 mg PO HS 06/26/22 06/26/22 QUEtiapine XR [SEROquel XR] 50 mg PO HS 06/26/22 06/26/22 busPIRone HCL [Buspar] 30 mg PO BID 06/26/22 06/26/22 Previous Rx's Medication Instructions Recorded Venlafaxine HCl ER [Effexor XR] 75 mg PO DAILY #30 capsule 03/20/22 Allergies Allergy/AdvReac Type Severity Reaction Status Date / Time No Known Allergies Allergy Verified 06/26/22 14:14 Review of Systems ROS Statement: Those systems with pertinent positive or pertinent negative responses have been documented in the HPI. ROS Other: All systems not noted in ROS Statement are negative. Past Medical History Past Medical History: No Reported History, Unable to Obtain, GERD/Reflux, Hypertension, Liver Disease Additional Past Medical History / Comment(s): Hepatitis C, DDD, back pain, bilateral carpel tunnel syndrome. He reports that he has heart disease that was found when he had kidney problems but he denies having a stress test or cardiac catheterization. History of Any Multi-Drug Resistant Organisms: None Reported MDRO Source:: unknown Past Surgical History: No Surgical Hx Reported, Unable to Obtain Additional Past Surgical History / Comment(s): Pt states he has had numerous "cysts" removed from where he injected IV drugs. Past Anesthesia/Blood Transfusion Reactions: No Reported Reaction, Unable to Obtain Additional Past Anesthesia/Blood Transfusion Reaction / Comment(s): Pt states he has never had surgery. Past Psychological History: Anxiety, Depression Smoking Status: Current every day smoker Past Alcohol Use History: None Reported Past Drug Use History: Heroin, Marijuana, Methamphetamine - Past Family History Mother Family Medical History: Unable to Obtain, Rheumatoid Arthritis (RA) Additional Family Medical History / Comment(s): Mother is . Father Family Medical History: Coronary Artery Disease (CAD) General Exam - General Exam Comments Initial Comments: GENERAL: Patient is well-developed and well-nourished. Patient is nontoxic and well- hydrated and is in no acute distress. ENT: Neck is soft and supple. No significant lymphadenopathy is noted. Oropharynx is clear. Moist mucous membranes. Neck has full range of motion without eliciting any pain. EYES: The sclera were anicteric and conjunctiva were pink and moist. Extraocular m ovements were intact and pupils were pinpoint PULMONARY: Unlabored respirations. Good breath sounds bilaterally. No audible rales rhonchi or wheezing was noted. CARDIOVASCULAR: There is a regular rate and rhythm without any murmurs gallops or rubs. ABDOMEN: Soft and nontender with normal bowel sounds. SKIN: Skin is clear with no lesions or rashes and otherwise unremarkable. NEUROLOGIC: Patient is arousable to painful stimuli and able to answer to his name but is not able to follow simple commands this time. MUSCULOSKELETAL: Normal extremities with adequate strength and full range of motion. LYMPHATICS: No significant lymphadenopathy is noted PSYCHIATRIC: Unable to assess at this time Course Vital Signs 08/04/22 08/04/22 16:20 16:22 Pulse Rate 102 H Respiratory 12 18 Rate Blood Pressure 149/83 O2 Sat by Pulse 98 Oximetry Medical Decision Making - Medical Decision Making patient was given 2 mg of Narcan and he woke up immediately patient has no complaints other than he is thirsty. He states he did do heroin Patient was under arrest by the police. Patient became aggressive the police had to handcuff the patient and patient ripped his IV out. At this point time the patient will be discharged into police custody. Disposition Clinical Impression: Heroin abuse Disposition: HOME SELF-CARE Instructions (If sedation given, give patient instructions): Adult Overdose (ED) Is patient prescribed a controlled substance at d/c from ED?: No Referrals: Jocelyn Ventura MD [Primary Care Provider] - 1-2 days Time of Disposition: 16:39
[2022-08-04 16:28] VITALS: BP 149/83; PULSE 102; RESP 18
== END 2022-08-04 16:50 | disposition home or self-care (01) ==
LOC: EC 16:12
DX: F11.10 Opioid abuse, uncomplicated (principal); K21.9 Gastro-esophageal reflux disease without esophagitis; I10 Essential (primary) hypertension; F41.9 Anxiety disorder, unspecified; F32.A Depression, unspecified; F17.200 Nicotine dependence, unspecified, uncomplicated; F12.90 Cannabis use, unspecified, uncomplicated; Z79.899 Other long term (current) drug therapy
CPT/HCPCS: 99284; 96374; J2310

== ENCOUNTER 2023-02-26 17:10 | Emergency (ER) | payer OTHER ==
[2023-02-26 17:19] VITALS: BP 138/99; PULSE 94; RESP 18; TEMP 97.2
[2023-02-26] MEDS ORDERED: SODIUM CHLORIDE 0.9% 2,000 ML IV STA (17:26)
[2023-02-26 18:40] LABS: Basophils % (A) 0 %; Eosinophils # (A) 0.3 k/uL (0-0.7); Eosinophils % (A) 5 %; HCT 39.8 % (39.0-53.0); HGB 14.1 gm/dL (13.0-17.5); Lymphocytes # (A) 2.5 k/uL (1.0-4.8); Lymphocytes % (A) 33 %; MCH 30.5 pg (25.0-35.0); MCHC 35.4 g/dL (31.0-37.0); MCV 86.1 fL (80.0-100.0); Mean Platelet Volume 9.3; Monocytes # (A) 0.4 k/uL (0-1.0); Monocytes % (A) 6 %; Neutrophils # (A) 4.1 k/uL (1.3-7.7); Neutrophils % (A) 53 %; Platelet Count 162 k/uL (150-450); RBC 4.62 m/uL (4.30-5.90); RDW 14.1 % (11.5-15.5); WBC 7.6 k/uL (3.8-10.6)
[2023-02-26 18:52] LABS: ALT 20 U/L (4-49); AST 27 U/L (17-59); Acetaminophen <10.0 ug/mL; African American GFR (CKD) >90 (>60 ml/min/1.73 sqM); Albumin 3.9 g/dL (3.5-5.0); Alcohol <10 mg/dL; Alkaline Phosphatase 50 U/L (38-126); Anion Gap 8 mmol/L; Blood Urea Nitrogen 8 mg/dL (9-20); Calcium 8.9 mg/dL (8.4-10.2); Carbon Dioxide 23 mmol/L (22-30); Chloride 107 mmol/L (98-107); Glucose 87 mg/dL (74-99); Non-African American GFR(CKD) >90 (>60 ml/min/1.73 sqM); Potassium 3.9 mmol/L (3.5-5.1); Salicylate <1.0 mg/dL; Sodium 138 mmol/L (137-145); Total Bilirubin 0.3 mg/dL (0.2-1.3)
[2023-02-26 19:00] LABS: Prothrombin Time 10.3 sec (9.0-12.0)
[2023-02-26 19:13] LABS: Amphetamine Screen,Urine Not Detected (NotDetected); Barbiturate Screen,Urine Not Detected (NotDetected); Benzodiazepines Screen,Urine Not Detected (NotDetected); Cocaine Screen,Urine Not Detected (NotDetected); Methadone Screen, Urine Not Detected (NotDetected); Opiate Screen,Urine Not Detected (NotDetected); Oxycodone Screen, Urine Not Detected (NotDetected); Phencyclidine Screen,Urine Not Detected (NotDetected); Tricyclic Antidepressant,Urine Not Detected (NotDetected); Urn Cannabinoid Scrn Detected (NotDetected)
--- NOTE | 2023-02-26 19:38 | ED ---
General Adult HPI - General Chief complaint: Overdose Stated complaint: mental health Time Seen by Provider: 02/26/23 17:20 Source: patient Mode of arrival: ambulatory - History of Present Illness Initial comments: 37-year-old male with past medical history of polysubstance abuse presents to the emergency department reporting an overdose. He states he took 60 tablets of 30 mg BuSpar at 245. States he took this medication because he wanted to kill himself. He denies taking any other [id number] medications or prescription medications in excess. He denies any drug or alcohol use. Admits that he has been hospitalized previously for his mental health. He denies any nausea or vomiting. No chest pain or shortness of breath. No headaches or visual changes. No other alleviating, Perceptin modifying factors - Related Data Home Medications Medication Instructions Recorded Confirmed Haloperidol Decanoate [Haldol D] 200 mg IM Q14D 06/26/22 02/26/23 QUEtiapine FUMARATE [SEROquel] 300 mg PO HS 02/26/23 02/26/23 QUEtiapine [SEROquel] 50 mg PO HS 02/26/23 02/26/23 Previous Rx's Medication Instructions Recorded Acetaminophen Tab [Tylenol] 650 mg PO Q4HR PRN tab 03/02/23 Mag Hydrox/Al Hydrox/Simeth 30 ml PO Q4HR PRN ml 03/02/23 [Maalox] Magnesium Hydroxide [Milk of 2,400 mg PO DAILY PRN ml 03/02/23 Magnesia Concentrate] busPIRone HCL [Buspar] 30 mg PO BID 30 Days #60 tab 03/02/23 Allergies Allergy/AdvReac Type Severity Reaction Status Date / Time No Known Allergies Allergy Verified 02/26/23 18:05 Review of Systems ROS Statement: Those systems with pertinent positive or pertinent negative responses have been documented in the HPI. ROS Other: All systems not noted in ROS Statement are negative. Past Medical History Past Medical History: No Reported History, Unable to Obtain, GERD/Reflux, Hypertension, Liver Disease Additional Past Medical History / Comment(s): Hepatitis C, DDD, back pain, bi lateral carpel tunnel syndrome. He reports that he has heart disease that was found when he had kidney problems but he denies having a stress test or cardiac catheterization. History of Any Multi-Drug Resistant Organisms: None Reported MDRO Source:: unknown Past Surgical History: No Surgical Hx Reported, Unable to Obtain Additional Past Surgical History / Comment(s): Pt states he has had numerous "cysts" removed from where he injected IV drugs. Past Anesthesia/Blood Transfusion Reactions: No Reported Reaction, Unable to Obtain Additional Past Anesthesia/Blood Transfusion Reaction / Comment(s): Pt states he has never had surgery. Past Psychological History: Anxiety, Depression Smoking Status: Current every day smoker Past Alcohol Use History: None Reported Past Drug Use History: Heroin, Marijuana, Methamphetamine - Past Family History Mother Family Medical History: Unable to Obtain, Rheumatoid Arthritis (RA) Additional Family Medical History / Comment(s): Mother is . Father Family Medical History: Coronary Artery Disease (CAD) General Exam General appearance: alert, in no apparent distress Head exam: Present: atraumatic, normocephalic, normal inspection Eye exam: Present: normal appearance, PERRL, EOMI. Absent: scleral icterus, conjunctival injection, periorbital swelling ENT exam: Present: normal exam, mucous membranes moist Neck exam: Present: normal inspection. Absent: tenderness, meningismus, lymphadenopathy Respiratory exam: Present: normal lung sounds bilaterally. Absent: respiratory distress, wheezes, rales, rhonchi, stridor Cardiovascular Exam: Present: regular rate, normal rhythm, normal heart sounds. Absent: systolic murmur, diastolic murmur, rubs, gallop, clicks GI/Abdominal exam: Present: soft, normal bowel sounds. Absent: distended, tenderness, guarding, rebound, rigid Extremities exam: Present: normal inspection, full ROM, normal capillary refill. Absent: tenderness, pedal edema, joint swelling, calf tenderness Back exam: Present: normal inspection Neurological exam: Present: alert, oriented X3, CN II-XII intact Psychiatric exam: Present: depressed, flat affect Skin exam: Present: warm, dry, intact, normal color. Absent: rash Course Vital Signs 02/26/23 17:16 Temperature 97.2 F L Pulse Rate 94 Respiratory 18 Rate Blood Pressure 138/99 O2 Sat by Pulse 98 Oximetry EKG Findings - EKG Comments: EKG Findings:: EKG demonstrates sinus rhythm with a rate of 87. MN 127. QRS 110. QTC of 387. No acute ST segment elevations or depressions Medical Decision Making - Medical Decision Making Was pt. sent in by a medical professional or institution (Dr., PA, AP[employer] SUPPORT LEAD, urgent care, hospital, or intermediate...) When possible be specific @ -No Did you speak to anyone other than the patient for history (EMS, parent, family, police, friend...)? What history was obtained from this source @ -No Did you review nursing and triage notes (agree or disagree)? Why? @ -I reviewed and agree with nursing and triage notes Were old charts reviewed (outside hosp., previous admission, EMS record, old EKG, old radiological studies, urgent care reports/EKG's, intermediate records)? Report findings @ - old charts were reviewed - patient has been admitted to mental health unit before Differential Diagnosis (chest pain, altered mental status, abdominal pain women, abdominal pain men, vaginal bleeding, weakness, fever, dyspnea, syncope, headache, dizziness, GI bleed, back pain, seizure, CVA, palpatations, mental health, musculoskeletal)? @ -depression, drug use, homelessness, suicidal ideations, bipolar EKG interpreted by me (3pts min.). @ -yes X-rays interpreted by me (1pt min.). @ -None done CT interpreted by me (1pt min.). @ -None done U/S interpreted by me (1pt. min.). @ -None done What testing was considered but not performed or refused? (CT, X-rays, U/S, labs)? Why? @ -None What meds were considered but not given or refused? Why? @ -None Did you discuss the management of the patient with other professionals (professionals i.e. [facility], [employer] SUPPORT LEAD, lab, RT, psych nurse, social media marketer, information technology security analyst, teacher, unarmed security officer, shoe parts caser)? Give summary @ -EPS nurse. Pt will be admitted Was smoking cessation discussed for >3mins.? @ -No Was critical care preformed (if so, how long)? @ -No Were there social determinants of health that impacted care today? How? (Homelessness, low income, unemployed, alcoholism, drug addiction, transportation, low edu. Level, literacy, decrease access to med. care, skilled nursing, rehab)? @ -Homelessness Was there de-escalation of care discussed even if they declined (Discuss DNR or withdrawal of care, Hospice)? DNR status @ -No What co-morbidities impacted this encounter? (DM, HTN, Smoking, COPD, CAD, Cancer, CVA, ARF, Chemo, Hep., AIDS, mental health diagnosis, sleep apnea, morbid obesity)? @ -Schizophrenia Was patient admitted / discharged? Hospital course, mention meds given and route, prescriptions, significant lab abnormalities, going to OR and other p ertinent info. @ -Upon arrival patient was placed into room 14. Thorough history and physical exam is performed. Poison control was contacted. Laboratory studies were drawn. Patient is observed and is pending EPS evaluation at this time Undiagnosed new problem with uncertain prognosis? @ -No Drug Therapy requiring intensive monitoring for toxicity (Heparin, Nitro, Insulin, Cardizem)? @ -No Were any procedures done? @ -No Diagnosis/symptom? @ -acute suicidal ideations with attempt, depression Acute, or Chronic, or Acute on Chronic? @ -acute Uncomplicated (without systemic symptoms) or Complicated (systemic symptoms)? @ -complicated Side effects of treatment? @ -No Exacerbation, Progression, or Severe Exacerbation? @ -No Poses a threat to life or bodily function? How? (Chest pain, USA, SD, pneumonia, PE, COPD, DKA, ARF, appy, cholecystitis, CVA, Diverticulitis, Homicidal, Suicidal, threat to staff... and all critical care pts) @ -yes - Lab Data Result diagrams: 02/26/23 18:13 02/26/23 18:13 Lab Results 02/26/23 02/26/23 02/26/23 Range/Units 18:13 18:13 18:13 WBC 7.6 (3.8-10.6) k/uL RBC 4.62 (4.30-5.90) m/uL Hgb 14.1 (13.0-17.5) gm/dL Hct 39.8 (39.0-53.0) % MCV 86.1 (80.0-100.0) fL MCH 30.5 (25.0-35.0) pg MCHC 35.4 (31.0-37.0) g/dL RDW 14.1 (11.5-15.5) % Plt Count 162 (150-450) k/uL MPV 9.3 Neutrophils % 53 % Lymphocytes % 33 % Monocytes % 6 % Eosinophils % 5 % Basophils % 0 % Neutrophils # 4.1 (1.3-7.7) k/uL Lymphocytes # 2.5 (1.0-4.8) k/uL Monocytes # 0.4 (0-1.0) k/uL Eosinophils # 0.3 (0-0.7) k/uL Basophils # 0.0 (0-0.2) k/uL PT 10.3 (9.0-12.0) sec INR 1.0 (<1.2) Sodium (137-145) mmol/L Potassium (3.5-5.1) mmol/L Chloride (98-107) mmol/L Carbon Dioxide (22-30) mmol/L Anion Gap mmol/L BUN (9-20) mg/dL Creatinine (0.66-1.25) mg/dL Est GFR (CKD-EPI)AfAm (>60 ml/min/1.73 sqM) Est GFR (CKD-EPI)NonAf (>60 ml/min/1.73 sqM) Glucose (74-99) mg/dL Calcium (8.4-10.2) mg/dL Total Bilirubin (0.2-1.3) mg/dL AST (17-59) U/L ALT (4-49) U/L Alkaline Phosphatase (38-126) U/L Total Protein (6.3-8.2) g/dL Albumin (3.5-5.0) g/dL Salicylates mg/dL Urine Opiates Screen Not Detected (NotDetected) Ur Oxycodone Screen Not Detected (NotDetected) Urine Methadone Screen Not Detected (NotDetected) Ur Propoxyphene Screen Not Detected (NotDetected) Acetaminophen ug/mL Ur Barbiturates Screen Not Detected (NotDetected) U Tricyclic Antidepress Not Detected (NotDetected) Ur Phencyclidine Scrn Not Detected (NotDetected) Ur Amphetamines Screen Not Detected (NotDetected) U Methamphetamines Scrn Not Detected (NotDetected) U Benzodiazepines Scrn Not Detected (NotDetected) Urine Cocaine Screen Not Detected (NotDetected) U Marijuana (THC) Screen Detected H (NotDetected) Serum Alcohol mg/dL Coronavirus (PCR) (Not Detectd) 02/26/23 02/26/23 Range/Units 18:13 22:25 WBC (3.8-10.6) k/uL RBC (4.30-5.90) m/uL Hgb (13.0-17.5) gm/dL Hct (39.0-53.0) % MCV (80.0-100.0) fL MCH (25.0-35.0) pg MCHC (31.0-37.0) g/dL RDW (11.5-15.5) % Plt Count (150-450) k/uL MPV Neutrophils % % Lymphocytes % % Monocytes % % Eosinophils % % Basophils % % Neutrophils # (1.3-7.7) k/uL Lymphocytes # (1.0-4.8) k/uL Monocytes # (0-1.0) k/uL Eosinophils # (0-0.7) k/uL Basophils # (0-0.2) k/uL PT (9.0-12.0) sec INR (<1.2) Sodium 138 (137-145) mmol/L Potassium 3.9 (3.5-5.1) mmol/L Chloride 107 (98-107) mmol/L Carbon Dioxide 23 (22-30) mmol/L Anion Gap 8 mmol/L BUN 8 L (9-20) mg/dL Creatinine 0.61 L (0.66-1.25) mg/dL Est GFR (CKD-EPI)AfAm >90 (>60 ml/min/1.73 sqM) Est GFR (CKD-EPI)NonAf >90 (>60 ml/min/1.73 sqM) Glucose 87 (74-99) mg/dL Calcium 8.9 (8.4-10.2) mg/dL Total Bilirubin 0.3 (0.2-1.3) mg/dL AST 27 (17-59) U/L ALT 20 (4-49) U/L Alkaline Phosphatase 50 (38-126) U/L Total Protein 7.0 (6.3-8.2) g/dL Albumin 3.9 (3.5-5.0) g/dL Salicylates <1.0 mg/dL Urine Opiates Screen (NotDetected) Ur Oxycodone Screen (NotDetected) Urine Methadone Screen (NotDetected) Ur Propoxyphene Screen (NotDetected) Acetaminophen <10.0 ug/mL Ur Barbiturates Screen (NotDetected) U Tricyclic Antidepress (NotDetected) Ur Phencyclidine Scrn (NotDetected) Ur Amphetamines Screen (NotDetected) U Methamphetamines Scrn (NotDetected) U Benzodiazepines Scrn (NotDetected) Urine Cocaine Screen (NotDetected) U Marijuana (THC) Screen (NotDetected) Serum Alcohol <10 mg/dL Coronavirus (PCR) Not Detected (Not Detectd) Disposition Clinical Impression: Depressive disorder Disposition: TRANSFER TO PSYCH HOSP/UNIT Condition: Stable Is patient prescribed a controlled substance at d/c from ED?: No Referrals: None,Stated [Primary Care Provider] - 1-2 days
== END 2023-02-27 00:25 ==
LOC: EC 17:10
DX: F32.A Depression, unspecified (principal); I10 Essential (primary) hypertension; F41.9 Anxiety disorder, unspecified; F17.200 Nicotine dependence, unspecified, uncomplicated; F12.90 Cannabis use, unspecified, uncomplicated; F11.90 Opioid use, unspecified, uncomplicated; F15.90 Other stimulant use, unspecified, uncomplicated; Z79.899 Other long term (current) drug therapy
CPT/HCPCS: 82075; 36415; 93005; 80053; 85025; 85610; 80306; 80143; 87635; 80179; 99285; 96360; 96361; G0480; 80320

== ENCOUNTER 2023-02-26 22:50 | Inpatient (IN) | payer MEDICAID, OTHER ==
[2023-02-26] MEDS ORDERED: MAG HYDROX/AL HYDROX/SIMETH 30 ML CUP PO PRN (23:44)
[2023-02-26] MEDS ORDERED: HALOPERIDOL LACTATE 5 MG/ML 1 ML VIAL IM PRN (23:44)
[2023-02-26] MEDS ORDERED: MAGNESIUM HYDROXIDE 2,400 MG/10 ML CUP PO PRN (23:44)
[2023-02-26] MEDS ORDERED: LORazepam 2 MG/ML INJ IM PRN (23:47)
[2023-02-27 07:13] LABS: Basophils % (A) 0 %; Eosinophils # (A) 0.3 k/uL (0-0.7); Eosinophils % (A) 5 %; HGB 13.8 gm/dL (13.0-17.5); Lymphocytes # (A) 1.9 k/uL (1.0-4.8); Lymphocytes % (A) 32 %; MCH 29.1 pg (25.0-35.0); MCHC 32.9 g/dL (31.0-37.0); MCV 88.5 fL (80.0-100.0); Mean Platelet Volume 8.9; Monocytes # (A) 0.3 k/uL (0-1.0); Monocytes % (A) 5 %; Neutrophils # (A) 3.2 k/uL (1.3-7.7); Neutrophils % (A) 54 %; Platelet Count 164 k/uL (150-450); RBC 4.74 m/uL (4.30-5.90); RDW 13.9 % (11.5-15.5)
[2023-02-27 07:29] LABS: ALT 19 U/L (4-49); AST 25 U/L (17-59); African American GFR (CKD) >90 (>60 ml/min/1.73 sqM); Albumin 3.7 g/dL (3.5-5.0); Alkaline Phosphatase 43 U/L (38-126); Anion Gap 8 mmol/L; Blood Urea Nitrogen 8 mg/dL (9-20); Calcium 9.1 mg/dL (8.4-10.2); Carbon Dioxide 19 mmol/L (22-30); Chloride 113 mmol/L (98-107); Glucose 96 mg/dL (74-99); Non-African American GFR(CKD) >90 (>60 ml/min/1.73 sqM); Potassium 4.7 mmol/L (3.5-5.1); Sodium 140 mmol/L (137-145); Total Bilirubin 0.3 mg/dL (0.2-1.3)
[2023-02-27] MEDS: NICOTINE 14MG/24HR PATCH TRANSDERM SCH (07:58)
[2023-02-27] MEDS: LORazepam 1 MG TAB PO PRN (08:23)
[2023-02-27] MEDS ORDERED: VENLAFAXINE HCL 75 MG TAB PO SCH (09:00)
--- NOTE | 2023-02-27 09:52 | P.HP ---
Psychiatric H&P - . H&P Date: 02/27/23 History & Physical: Allergies Allergy/AdvReac Type Severity Reaction Status Date / Time No Known Allergies Allergy Verified 02/26/23 18:05 Vital Signs Temp 98 F 02/27/23 00:31 Pulse 80 02/27/23 00:31 Resp 18 02/27/23 00:31 BP 132/92 02/27/23 00:31 Pulse Ox 95 02/27/23 00:31 FiO2 Intake & Output 02/26/23 02/27/23 02/27/23 18:59 06:59 18:59 Weight 96.87 kg Laboratory Last Values WBC 6.0 k/uL (3.8-10.6) 02/27/23 06:48 RBC 4.74 m/uL (4.30-5.90) 02/27/23 06:48 Hgb 13.8 gm/dL (13.0-17.5) 02/27/23 06:48 Hct 42.0 % (39.0-53.0) 02/27/23 06:48 MCV 88.5 fL (80.0-100.0) 02/27/23 06:48 MCH 29.1 pg (25.0-35.0) 02/27/23 06:48 MCHC 32.9 g/dL (31.0-37.0) 02/27/23 06:48 RDW 13.9 % (11.5-15.5) 02/27/23 06:48 Plt Count 164 k/uL (150-450) 02/27/23 06:48 MPV 8.9 02/27/23 06:48 Neutrophils % 54 % 02/27/23 06:48 Lymphocytes % 32 % 02/27/23 06:48 Monocytes % 5 % 02/27/23 06:48 Eosinophils % 5 % 02/27/23 06:48 Basophils % 0 % 02/27/23 06:48 Neutrophils # 3.2 k/uL (1.3-7.7) 02/27/23 06:48 Lymphocytes # 1.9 k/uL (1.0-4.8) 02/27/23 06:48 Monocytes # 0.3 k/uL (0-1.0) 02/27/23 06:48 Eosinophils # 0.3 k/uL (0-0.7) 02/27/23 06:48 Basophils # 0.0 k/uL (0-0.2) 02/27/23 06:48 Sodium 140 mmol/L (137-145) 02/27/23 06:48 Potassium 4.7 mmol/L (3.5-5.1) 02/27/23 06:48 Chloride 113 mmol/L (98-107) H 02/27/23 06:48 Carbon Dioxide 19 mmol/L (22-30) L 02/27/23 06:48 Anion Gap 8 mmol/L 02/27/23 06:48 BUN 8 mg/dL (9-20) L 02/27/23 06:48 Creatinine 0.58 mg/dL (0.66-1.25) L 02/27/23 06:48 Est GFR (CKD-EPI)AfAm >90 (>60 ml/min/1.73 sqM) 02/27/23 06:48 Est GFR (CKD-EPI)NonAf >90 (>60 ml/min/1.73 sqM) 02/27/23 06:48 Glucose 96 mg/dL (74-99) 02/27/23 06:48 Calcium 9.1 mg/dL (8.4-10.2) 02/27/23 06:48 Total Bilirubin 0.3 mg/dL (0.2-1.3) 02/27/23 06:48 AST 25 U/L (17-59) 02/27/23 06:48 ALT 19 U/L (4-49) 02/27/23 06:48 Alkaline Phosphatase 43 U/L (38-126) 02/27/23 06:48 Total Protein 7.0 g/dL (6.3-8.2) 02/27/23 06:48 Albumin 3.7 g/dL (3.5-5.0) 02/27/23 06:48 TSH 1.790 mIU/L (0.465-4.680) 02/27/23 06:48 02/27/23 09:38 Identification: Wilbert Rosenthal is a 37 years old white male who is homeless was readmitted to [facility] on 03/08/2023 since he was feeling depressed and was having suicidal thoughts on a voluntary basis. History of present illness: Patient is not a good historian. When asked for the reasons for coming to hospital he said he took a bottle of BuSpar which had 60 tablets of 30 mg each since he became depressed for one week. He came to the ER was cleared and was admitted to the unit. He said the depression came on its own without any precipitating factor. He has a diagnosis of schizoaffective disorder and is on Haldol D2 100 mg IM every 2 weeks Seroquel 350 mg at bedtime and Effexor 75 mg daily. He said he has been taking his medications as pr escribed. It is not clear how he got BuSpar when his medication profile does not include it. He said his mood goes up and down but he denies current hallucinations and delusional thinking he also reported that he gets quite anxious and angry easily. But he said he does not get violent. Even though he came here with suicidal thoughts he said he is not planning on doing anything to hurt himself while in the hospital. He is homeless and lives in jail. Previous psychiatric history/drug and alcohol abuse: He said he was in psychiatric hospitals about 5-10 times and gets his outpatient treatment at [facility]. He said he was taking Effexor before he was put on Seroquel. He was counseled about the effects of Seroquel and its indications and he agreed to stop Effexor since Seroquel is an antidepressant. It is not clear why he is on Seroquel and Haldol D. He said he does not abuse drugs or alcohol these days but he was abusing methamphetamine in the past. He used to shoot it. Previous medical history: He is not ALLERGIC to any medication. He said he has hepatitis C which he thinks may be from his IV drug use. He did not have any surgery. Social history: He said he was kicked out of school in ninth grade since he had threatened to pull [place]. He said he had learning problems but did not have any disciplinary problems and he said his affect was unprovoked and spontaneous. He however got his GED later on. 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 He was raised well by his parents and was not abused he was and is currently . He is Yazidism by restorationist and goes to [employer] sometimes. Family history: He denies any history of general physical or mental health problems in the family Mental status examination: This is a right ambulatory male who is wearing hospital gowns he has followed order coming from him he is restless and paces the floor quite often. He frequently asked if he could get Thorazine shots to calm his nerves. His speech is spontaneous and goal-directed even though his short period mood is anxious and is restless. Affect is somewhat blunted. He denies current hallucinations and delusional thinking. He also denies current suicidal and homicidal plans. He is well oriented with adequate memory and concentration. Strengths: Has GED and history of employment. Weakness: No income, homeless and chronic severe mental illness. Diagnostic impression: Schizoaffective disorder bipolar type. Treatment plan: He will have physical examination and psychosocial evaluation. He will receive milieu therapy group therapy individual therapy occupational therapy and recreational therapy. I will continue his Haldol D and Seroquel discontinue Effexor since he is on Seroquel. Will add Thorazine IM when necessary per his request. Discharge with outpatient follow-up.
[2023-02-27] MEDS ORDERED: HALOPERIDOL DECANOATE 100 MG/ML 1 ML VIAL IM SCH (10:00)
[2023-02-27] MEDS: chlorproMAZINE 25 MG/ML 2 ML AMP IM PRN (10:10)
[2023-02-27 12:07] LABS: Appearance,Urine Clear (Clear); Bilirubin,Urine Negative (Negative); Blood,Urine Negative (Negative); Color,Urine Light Yellow; Glucose,Urine (UA) Negative (Negative); Ketones,Urine Negative (Negative); Leukocyte Esterase,Urine Negative (Negative); Nitrite,Urine Negative (Negative); Protein,Urine Negative (Negative); Specific Gravity,Urine 1.014 (1.001-1.035); Urobilinogen,Urine <2.0 mg/dL (<2.0)
[2023-02-27 17:30] LABS: Chol/HDL Ratio 2.97 Ratio; LDL Cholesterol,Calculated 88.2 mg/dL (0.0-131.0); VLDL Calculation 17.88 mg/dL (5.00-40.00)
[2023-02-27] MEDS: QUEtiapine 50 MG TAB PO SCH (21:15)
[2023-02-27] MEDS: QUEtiapine 100 MG TAB PO SCH (21:15)
[2023-02-27 22:36] LABS: Urine Alcohol Negative (Negative); Urine Barbiturate Negative (Negative); Urine Cocaine Negative (Negative); Urine Methadone Negative (Negative); Urine Opiates Negative (Negative); Urine Phencyclidine Negative (Negative)
--- NOTE | 2023-02-28 00:19 | P.PN ---
Progress Note - Text Progress Note Date: 02/28/23 Attempted to see the patient in the mental health unit on 02/27 at 2100. The patient refused to be seen or be evaluated.
[2023-02-28] MEDS: NICOTINE 14MG/24HR PATCH TRANSDERM SCH (08:06)
[2023-02-28] MEDS: chlorproMAZINE 25 MG/ML 2 ML AMP IM PRN ×2 (08:07→15:36)
[2023-02-28] MEDS: haloperidoL 5 MG TAB PO PRN (11:54)
[2023-02-28] MEDS: LORazepam 1 MG TAB PO PRN ×2 (11:54→20:39)
--- NOTE | 2023-02-28 11:58 | P.PN ---
Progress Note - Text Progress Note Date: 02/28/23 S&O: Patient was seen in rounds. He had refused to come to the office and so he was seen in his room. He was laying down and somewhat sleepy. He got Thorazine when necessary IM this morning. Eventually he started to talk and said if he can go home. He was counseled that he just came in and we want to make sure he is well enough to go home. Apparently his new UDS was positive for amphetamines. Patient said he has been doing meth by snorting and he was advised not to wait since it will interfere with his mental health and his mental health medications. He also asked if it is time for lunch and got out of bed and started to walk to the medication window without any hyperactivity. This is a white ambulatory male with follow body odor. He still is wearing hospital gowns. He is not restless or agitated today/at this time. His speech is spontaneous short and goal-directed. Mood is dull and affect is constricted in range. He denied suicidal and homicidal thoughts. He also denied hallucinations and delusional thinking. But he said he gets nervous. His sensorium is clear. A&P: Continue current medications therapy and supervision.
[2023-02-28] MEDS: QUEtiapine 100 MG TAB PO SCH (20:38)
[2023-02-28] MEDS: QUEtiapine 50 MG TAB PO SCH (20:38)
--- NOTE | 2023-02-28 23:44 | P.PN ---
Progress Note - Text Progress Note Date: 02/28/23 Attempted to see the patient in the mental health unit on 02/28 at 2200. The patient refused to be seen or be evaluated.
[2023-03-01] MEDS: chlorproMAZINE 25 MG/ML 2 ML AMP IM PRN ×2 (03:39→13:05)
[2023-03-01 06:22] VITALS: RESP 18; TEMP 97.8
[2023-03-01] MEDS: LORazepam 1 MG TAB PO PRN ×2 (08:14→20:54)
[2023-03-01] MEDS: ACETAMINOPHEN TAB 325 MG TAB PO PRN (08:14)
[2023-03-01] MEDS: haloperidoL 5 MG TAB PO PRN (09:52)
--- NOTE | 2023-03-01 10:20 | P.PN ---
Progress Note - Text Progress Note Date: 03/01/23 S&O: Patient was seen in rounds. He takes his medications including when necessary medications. But he has not been attending groups saying he is not comfortable in the group does not like to talk in front of the group, and other people talk about him whisper him and so he avoids groups. He said he is still restless anxious. But, he is not physically restless and does not move around purposelessly. He is poorly combed and has followed body odor. He said he lives in custodial and would like to return there to get fresh air. This is a right ambulatory male with poor hygiene and followed body odor. He is poorly groomed. He does not move around purposelessly. Speech is short and fairly goal-directed. Mood is somewhat irritable and affect is constricted in range. He is paranoid and thinks other people are making fun of him and talking about. He denied hallucinations, suicidal and homicidal thoughts. Sensorium is fairly clear. A&P: Continue current medications and supervision. He was encouraged to attend groups and to his personal hygiene.
[2023-03-01] MEDS: QUEtiapine 50 MG TAB PO SCH (20:54)
[2023-03-01] MEDS: QUEtiapine 100 MG TAB PO SCH (20:55)
[2023-03-02] MEDS: ACETAMINOPHEN TAB 325 MG TAB PO PRN (01:12)
[2023-03-02] MEDS: haloperidoL 5 MG TAB PO PRN (01:13)
[2023-03-02 06:38] VITALS: BP 124/70; PULSE 83
--- NOTE | 2023-03-02 10:09 | P.PN ---
Progress Note - Text Progress Note Date: 03/02/23 S&O: Patient was seen in rounds. He has been taking his when necessary Thorazine shots almost regularly every 6 hours. He also says he wants to go home and may get panic attacks if he continues to stay in the hospital. When asked what he is going to do about his when necessary Thorazine shots when he leaves the hospital since he cannot get it, he said he probably will smoke pot if he can. He was advised not to smoke pot. No other issues. I told him we will discuss about his discharge plan in the treatment team and go from there. He agreed with this idea. This is a right ambulatory male who looks unkempt and has body odor. He is mildly restless. Speech is spontaneous and goal-directed. Mood is mildly anxious and affect is appropriate. He denies hallucinations delusional thinking suicide and homicide thoughts. Sensorium is clear. A&P: Continue current medications and plans. His discharge plan will be discussed during treatment team meeting and if everyone agrees to discharge him we'll discharge him otherwise he will stay in the hospital.
[2023-03-02] MEDS: NICOTINE 14MG/24HR PATCH TRANSDERM SCH (10:11)
[2023-03-02] MEDS: LORazepam 1 MG TAB PO PRN (10:11)
--- NOTE | 2023-03-02 11:40 | P.DS ---
Providers Date of admission: 02/27/23 00:02 Expected date of discharge: 03/02/23 Attending physician: Gamal Ruvalcaba MD Consults: 02/26/23 23:44 Consult Physician Routine Consulting Provider: Doron James Consult Reason/Comments: medical management Do you want consulting provider notified?: Yes Primary care physician: Stated None - Discharge Diagnosis(es) (1) Schizoaffective disorder, bipolar type Current Visit: Yes Status: Acute Priority: High Hospital Course: Patient had his psychiatric H&P done by me on 02/27/2023 and he did not have physical examination since he did not cooperate with the examining physician. After psychiatric H&P he was continued on his home medications of Haldol D2 100 mg IM every 2 weeks Seroquel 350 mg at bedtime and Thorazine 50 mg IM every 6 hours when necessary per his request. Patient to call his medications but he was not attending any groups in spite of counseling to do so. He spent most of the time in his room and needed encouragement to attend close shower and to attend to personal hygiene. He did not show any violent or bizarre behavior. He was asking to be discharged since he felt he would be better off outside the hospital on his own and continue with outpatient treatment. This was discussed by the treatment team and it was agreed to discharge him. At the time of discharge she was polite and cooperative he did not show any psychomotor agitation or retardation but had some minor restlessness. Speech was spontaneous and goal-directed mood was euthymic to mildly anxious and affect was appropriate. He denied suicide and homicide thoughts, hallucinations and delusional thinking. His sensorium was clear. A&P: Patient was advised and agreed to comply with outpatient treatment not to abuse drugs and alcohol. Assessment: As in hospital course above Health Concerns: None Pertinent Studies: Not applicable Procedures: None Patient Condition at Discharge: Stable Plan - Discharge Summary New Discharge Prescriptions: New Mag Hydrox/Al Hydrox/Simeth [Maalox] 30 ml PO Q4HR PRN ml PRN Reason: Gi Upset Magnesium Hydroxide [Milk of Magnesia Concentrate] 2,400 mg PO DAILY PRN ml PRN Reason: Constipation Acetaminophen Tab [Tylenol] 650 mg PO Q4HR PRN tab PRN Reason: Pain/Discomfort Continue Haloperidol Decanoate [Haldol D] 200 mg IM Q14D QUEtiapine [SEROquel] 50 mg PO HS busPIRone HCL [Buspar] 30 mg PO BID 30 Days #60 tab QUEtiapine FUMARATE [SEROquel] 300 mg PO HS Discontinued Venlafaxine HCl [Effexor] 75 mg PO DAILY Discharge Medication List Haloperidol Decanoate [Haldol D] 200 mg IM Q14D 06/26/22 [History] QUEtiapine FUMARATE [SEROquel] 300 mg PO HS 02/26/23 [History] QUEtiapine [SEROquel] 50 mg PO HS 02/26/23 [History] Acetaminophen Tab [Tylenol] 650 mg PO Q4HR PRN tab 03/02/23 [Rx] Mag Hydrox/Al Hydrox/Simeth [Maalox] 30 ml PO Q4HR PRN ml 03/02/23 [Rx] Magnesium Hydroxide [Milk of Magnesia Concentrate] 2,400 mg PO DAILY PRN ml 03/02/23 [Rx] busPIRone HCL [Buspar] 30 mg PO BID 30 Days #60 tab 03/02/23 [Rx] Activity/Diet/Wound Care/Special Instructions: Avoid the use of street drugs and alcohol. Take all medications as prescribed. When you are in need of refills on your medications, please contact your medical provider and/or outpatient psychiatrist to have this done. Please go to scheduled outpatient appointments for aftercare treatment. If symptoms return or become worse, call the crisis line at and/or go to the nearest emergency room for evaluation.
== END 2023-03-02 14:23 | disposition home or self-care (01) | DRG 817 ==
LOC: 3MHU 02-27 00:02
PROVIDERS: ADMIT Psychiatry & Neurology Psychiatry; ATTEND Psychiatry & Neurology Psychiatry
DX: T43.592A Poisoning by other antipsychotics and neuroleptics, intentional self-harm, initial encounter (principal); F25.0 Schizoaffective disorder, bipolar type; F41.0 Panic disorder [episodic paroxysmal anxiety]; R45.851 Suicidal ideations; F15.10 Other stimulant abuse, uncomplicated; F12.10 Cannabis abuse, uncomplicated; Z53.29 Procedure and treatment not carried out because of patient's decision for other reasons; Z59.01 Sheltered homelessness; Z79.899 Other long term (current) drug therapy; Z71.51 Drug abuse counseling and surveillance of drug abuser
CPT/HCPCS: 80053; 80061; 80306; 81003; 83036; 84443; 85025

== ENCOUNTER 2023-03-09 02:17 | Inpatient (IN) | payer MEDICAID, OTHER ==
[2023-03-09] MEDS ORDERED: SODIUM CHLORIDE 0.9% 1,000 ML IV STA (02:39)
--- NOTE | 2023-03-09 02:39 | ED ---
Overdose HPI - General Source: patient, police, EMS, RN notes reviewed Mode of arrival: EMS Limitations: no limitations - History of Present Illness MD Complaint: intentional overdose Intent: suicide attempt <Blanca Jesus - Last Filed: 03/09/23 04:08> <Inder Camara - Last Filed: 03/09/23 09:07> - General Chief Complaint: Overdose Stated Complaint: SUICIDAL Time Seen by Provider: 03/09/23 02:32 - History of Present Illness Initial Comments: This is a 37-year-old male who presents to the emergency department for an intentional overdose. Patient reportedly took 60 tablets of 30 mg BuSpar earlier today. States that he just had his prescription refilled. Reports taking this intentionally because he felt lonely. Does admit to trying to end his own life. Denies any homicidal ideations. He was just discharged after being admitted to the mental health unit here from 02/26 - 03/02 for suicidal ideations. He reported overdosing on BuSpar at that time as well. EMS could not find a bottle of BuSpar on scene. Police state that he was also just kicked out of the homeless group home, and believes that he may also just be wanting a place to stay. Patient currently denies any complaints and is just asking for water. He does not feel nauseous, dizzy, ill, and is not in any pain. Denies any alcohol or illicit drug use. Denies any fevers, chills, sore throat, cough, dyspnea, chest pain, palpitations, abdominal pain, nausea, vomiting, diarrhea, back pain, or headaches. (Blanca Jesus) - Related Data Home Medications Medication Instructions Recorded Confirmed Haloperidol Decanoate [Haldol D] 200 mg IM Q14D 06/26/22 02/26/23 QUEtiapine FUMARATE [SEROquel] 300 mg PO HS 02/26/23 02/26/23 QUEtiapine [SEROquel] 50 mg PO HS 02/26/23 02/26/23 Previous Rx's Medication Instructions Recorded Acetaminophen Tab [Tylenol] 650 mg PO Q4HR PRN tab 03/02/23 Mag Hydrox/Al Hydrox/Simeth 30 ml PO Q4HR PRN ml 03/02/23 [Maalox] Magnesium Hydroxide [Milk of 2,400 mg PO DAILY PRN ml 03/02/23 Magnesia Concentrate] busPIRone HCL [Buspar] 30 mg PO BID 30 Days #60 tab 03/02/23 Allergies Allergy/AdvReac Type Severity Reaction Status Date / Time No Known Allergies Allergy Verified 02/26/23 18:05 Review of Systems ROS Other: All systems not noted in ROS Statement are negative. <Blanca Jesus - Last Filed: 03/09/23 04:08> ROS Other: All systems not noted in ROS Statement are negative. <Inder Camara - Last Filed: 03/09/23 09:07> ROS Statement: Those systems with pertinent positive or pertinent negative responses have been documented in the HPI. Past Medical History Past Medical History: No Reported History, Unable to Obtain, GERD/Reflux, Hypertension, Liver Disease Additional Past Medical History / Comment(s): Hepatitis C, DDD, back pain, bilateral carpel tunnel syndrome. He reports that he has heart disease that was found when he had kidney problems but he denies having a stress test or cardiac catheterization. History of Any Multi-Drug Resistant Organisms: None Reported MDRO Source:: unknown Past Surgical History: No Surgical Hx Reported, Unable to Obtain Additional Past Surgical History / Comment(s): Pt states he has had numerous "cysts" removed from where he injected IV drugs. Past Anesthesia/Blood Transfusion Reactions: No Reported Reaction, Unable to Obtain Additional Past Anesthesia/Blood Transfusion Reaction / Comment(s): Pt states he has never had surgery. Past Psychological History: Anxiety, Depression Smoking Status: Current every day smoker Past Alcohol Use History: None Reported Past Drug Use History: Heroin, Marijuana, Methamphetamine - Past Family History Mother Family Medical History: Unable to Obtain, Rheumatoid Arthritis (RA) Additional Family Medical History / Comment(s): Mother is . Father Family Medical History: Coronary Artery Disease (CAD) <Blanca Jesus - Last Filed: 03/09/23 04:08> General Exam Limitations: no limitations General appearance: alert, in no apparent distress Head exam: Present: atraumatic, normocephalic, normal inspection Eye exam: Present: normal appearance, PERRL, EOMI. Absent: scleral icterus, conjunctival injection, periorbital swelling Respiratory exam: Present: normal lung sounds bilaterally. Absent: respiratory distress, wheezes, rales, rhonchi, stridor Cardiovascular Exam: Present: regular rate, normal rhythm, normal heart sounds. Absent: systolic murmur, diastolic murmur, rubs, gallop, clicks Neurological exam: Present: alert, oriented X3, CN II-XII intact Psychiatric exam: Present: depressed, flat affect, suicidal ideation. Absent: homicidal ideation Skin exam: Present: warm, dry, intact, normal color. Absent: rash <Blanca Jesus - Last Filed: 03/09/23 04:08> Course <Blanca Jesus - Last Filed: 03/09/23 04:08> Vital Signs 03/09/23 03/09/23 02:25 07:51 Temperature 98 F Pulse Rate 84 90 Respiratory 16 18 Rate Blood Pressure 141/90 155/95 O2 Sat by Pulse 95 98 Oximetry - Reevaluation(s) Reevaluation #1: On reevaluation of the patient, he is resting comfortably. He is exhibiting no signs of distress. He is alert and oriented 4 and has no complaints. 03/09/23 03:55 (Blanca Jesus) Medical Decision Making - Lab Data Result diagrams: 03/09/23 02:56 03/09/23 02:56 <Blanca Jesus - Last Filed: 03/09/23 04:08> - Lab Data Result diagrams: 03/09/23 02:56 03/09/23 02:56 <Inder Camara - Last Filed: 03/09/23 09:07> - Medical Decision Making This is a 37-year-old male who presents to the emergency department for an intentional overdose and psychiatric evaluation. Was pt. sent in by a medical professional or institution? @ -No Did you speak to anyone other than the patient for history? @ -Police Did you review nursing and triage notes? @ -Yes, and I agree, it is accurate with regards to the patient's symptoms. Were old charts reviewed? @ -No Differential Diagnosis? @ -Differential Mental Health Depression, anxiety, bipolar, psychosis, schizophrenia, borderline personality, situational depression, adjustment disorder, behavioral disorder, brain tumor, malingering, substance abuse, encephalopathy, medication reaction, dementia, hypothyroidism, degenerative neurologic disorder, lupus.... This is not meant to be all-inclusive list EKG interpreted by me (3pts min.)? @ -Sinus rhythm. Ventricular rate 72 bpm, SC interval 133 ms, QRS duration 93 ms, QTC 379 ms. What testing was considered but not performed? (CT, X-rays, U/S, labs)? Why? @ -None What meds were considered but not given? Why? @ -None Did you discuss the management of the patient with other professionals? @ -No Did you reconcile home meds? @ -No Was smoking cessation discussed for >3mins.? @ -No Was critical care preformed (if so, how long)? @ -No Were there social determinants of health that impacted care today? How? (Homelessness, low income, unemployed, alcoholism, drug addiction, transportation, low edu. Level, literacy, decrease access to med. care, [place] [facility], rehab)? @ -No Was there de-escalation of care discussed even if they declined? (Discuss DNR or withdrawal of care, Hospice)? @ -No What co-morbidities impacted this encounter? (DM, HTN, Smoking, COPD, CAD, Cancer, CVA, Hep., AIDS, mental health diagnosis, sleep apnea, morbid obesity)? @ -Schizoaffective disorder, hypertension, polysubstance abuse Was patient admitted / discharged? @ -Poison control was contacted and they advised getting an EKG and blood work including a CBC, CMP, alcohol level, acetaminophen, and salicylate level, as well as a urine drug screen. He was given a liter bolus of IV fluids. Lab work was nonactionable. He did have a low alcohol level of 66. Poison control advised monitoring the patient for 4-6 hours to ensure that he remains asymptomatic before having him evaluated by EPS. Case signed out to ED attending, Dr. Courtney, pending medical clearance and EPS evaluation. Undiagnosed new problem with uncertain prognosis? @ -None Drug Therapy requiring intensive monitoring for toxicity (Heparin, Nitro, Insulin, Cardizem)? @ -None Were any procedures done? @ -None Diagnosis/symptom? @ -Intentional overdose, suicidal ideation Acute, or Chronic, or Acute on Chronic? @ -Acute Uncomplicated (without systemic symptoms) or Complicated (systemic symptoms)? @ -Complicated Side effects of treatment? @ -None Exacerbation, Progression, or Severe Exacerbation] @ -Not applicable Poses a threat to life or bodily function? @ -Yes (Blanca Jesus) Patient was seen by mental health services with plans for admission. (Inder Camara) - Lab Data Lab Results 03/09/23 03/09/23 03/09/23 Range/Units 02:56 02:56 06:06 WBC 7.4 (3.8-10.6) k/uL RBC 4.90 (4.30-5.90) m/uL Hgb 14.6 (13.0-17.5) gm/dL Hct 42.9 (39.0-53.0) % MCV 87.6 (80.0-100.0) fL MCH 29.8 (25.0-35.0) pg MCHC 34.0 (31.0-37.0) g/dL RDW 13.4 (11.5-15.5) % Plt Count 240 (150-450) k/uL MPV 8.9 Neutrophils % 54 % Lymphocytes % 34 % Monocytes % 6 % Eosinophils % 4 % Basophils % 1 % Neutrophils # 4.0 (1.3-7.7) k/uL Lymphocytes # 2.5 (1.0-4.8) k/uL Monocytes # 0.4 (0-1.0) k/uL Eosinophils # 0.3 (0-0.7) k/uL Basophils # 0.1 (0-0.2) k/uL Sodium 146 H (137-145) mmol/L Potassium 4.4 (3.5-5.1) mmol/L Chloride 113 H (98-107) mmol/L Carbon Dioxide 25 (22-30) mmol/L Anion Gap 8 mmol/L BUN 13 (9-20) mg/dL Creatinine 0.76 (0.66-1.25) mg/dL Est GFR (CKD-EPI)AfAm >90 (>60 ml/min/1.73 sqM) Est GFR (CKD-EPI)NonAf >90 (>60 ml/min/1.73 sqM) Glucose 89 (74-99) mg/dL Calcium 9.1 (8.4-10.2) mg/dL Total Bilirubin 0.2 (0.2-1.3) mg/dL AST 30 (17-59) U/L ALT 24 (4-49) U/L Alkaline Phosphatase 47 (38-126) U/L Total Protein 7.8 (6.3-8.2) g/dL Albumin 4.3 (3.5-5.0) g/dL Urine Color Yellow Urine Appearance Clear (Clear) Urine pH 6.5 (5.0-8.0) Ur Specific [place] 1.022 (1.001-1.035) Urine Protein Negative (Negative) Urine Glucose (UA) Negative (Negative) Urine Ketones Negative (Negative) Urine Blood Negative (Negative) Urine Nitrite Negative (Negative) Urine Bilirubin Negative (Negative) Urine Urobilinogen <2.0 (<2.0) mg/dL Ur Leukocyte Esterase Negative (Negative) Salicylates <1.0 mg/dL Urine Opiates Screen Not Detected (NotDetected) Ur Oxycodone Screen Not Detected (NotDetected) Urine Methadone Screen Not Detected (NotDetected) Ur Propoxyphene Screen Not Detected (NotDetected) Acetaminophen <10.0 ug/mL Ur Barbiturates Screen Not Detected (NotDetected) U Tricyclic Antidepress Not Detected (NotDetected) Ur Phencyclidine Scrn Not Detected (NotDetected) Ur Amphetamines Screen Detected H (NotDetected) U Methamphetamines Scrn Detected H (NotDetected) U Benzodiazepines Scrn Not Detected (NotDetected) Urine Cocaine Screen Not Detected (NotDetected) U Marijuana (THC) Screen Detected H (NotDetected) Serum Alcohol 66 mg/dL Disposition <Blanca Jesus - Last Filed: 03/09/23 04:08> Is patient prescribed a controlled substance at d/c from ED?: No <Inder Camara - Last Filed: 03/09/23 09:07> Clinical Impression: Suicidal ideation, Depression Disposition: TRANSFER TO PSYCH HOSP/UNIT Referrals: None,Stated [Primary Care Provider] - 1-2 days
[2023-03-09 03:28] LABS: ALT 24 U/L (4-49); AST 30 U/L (17-59); Acetaminophen <10.0 ug/mL; African American GFR (CKD) >90 (>60 ml/min/1.73 sqM); Albumin 4.3 g/dL (3.5-5.0); Alcohol 66 mg/dL; Alkaline Phosphatase 47 U/L (38-126); Anion Gap 8 mmol/L; Blood Urea Nitrogen 13 mg/dL (9-20); Calcium 9.1 mg/dL (8.4-10.2); Carbon Dioxide 25 mmol/L (22-30); Chloride 113 mmol/L (98-107); Glucose 89 mg/dL (74-99); Non-African American GFR(CKD) >90 (>60 ml/min/1.73 sqM); Potassium 4.4 mmol/L (3.5-5.1); Salicylate <1.0 mg/dL; Sodium 146 mmol/L (137-145); Total Bilirubin 0.2 mg/dL (0.2-1.3); Total Protein 7.8 g/dL (6.3-8.2)
[2023-03-09 03:45] LABS: Basophils # (A) 0.1 k/uL (0-0.2); Basophils % (A) 1 %; Eosinophils # (A) 0.3 k/uL (0-0.7); Eosinophils % (A) 4 %; HCT 42.9 % (39.0-53.0); HGB 14.6 gm/dL (13.0-17.5); Lymphocytes # (A) 2.5 k/uL (1.0-4.8); Lymphocytes % (A) 34 %; MCH 29.8 pg (25.0-35.0); MCV 87.6 fL (80.0-100.0); Mean Platelet Volume 8.9; Monocytes # (A) 0.4 k/uL (0-1.0); Monocytes % (A) 6 %; Neutrophils % (A) 54 %; Platelet Count 240 k/uL (150-450); RDW 13.4 % (11.5-15.5); WBC 7.4 k/uL (3.8-10.6)
[2023-03-09 06:19] LABS: Appearance,Urine Clear (Clear); Bilirubin,Urine Negative (Negative); Blood,Urine Negative (Negative); Color,Urine Yellow; Glucose,Urine (UA) Negative (Negative); Ketones,Urine Negative (Negative); Leukocyte Esterase,Urine Negative (Negative); Nitrite,Urine Negative (Negative); PH, Urine 6.5 (5.0-8.0); Protein,Urine Negative (Negative); Specific Gravity,Urine 1.022 (1.001-1.035); Urobilinogen,Urine <2.0 mg/dL (<2.0)
[2023-03-09 06:33] LABS: Amphetamine Screen,Urine Detected (NotDetected); Barbiturate Screen,Urine Not Detected (NotDetected); Benzodiazepines Screen,Urine Not Detected (NotDetected); Cocaine Screen,Urine Not Detected (NotDetected); Methadone Screen, Urine Not Detected (NotDetected); Opiate Screen,Urine Not Detected (NotDetected); Oxycodone Screen, Urine Not Detected (NotDetected); Phencyclidine Screen,Urine Not Detected (NotDetected); Tricyclic Antidepressant,Urine Not Detected (NotDetected); Urn Cannabinoid Scrn Detected (NotDetected)
[2023-03-09] MEDS ORDERED: LORazepam 2 MG/ML INJ IV STA (08:16)
[2023-03-09] MEDS ORDERED: MAGNESIUM HYDROXIDE 2,400 MG/10 ML CUP PO PRN (10:16)
[2023-03-09] MEDS ORDERED: MAG HYDROX/AL HYDROX/SIMETH 30 ML CUP PO PRN (10:16)
[2023-03-09] MEDS ORDERED: OLANZapine 5 MG TAB PO PRN (10:21)
[2023-03-09] MEDS ORDERED: hydrOXYzine HCL 50 MG/ML 1 ML VIAL IM PRN (10:22)
[2023-03-09] MEDS ORDERED: WATER FOR INJECTION, STERILE 10 ML IV ONE (10:53)
[2023-03-09] MEDS: hydrOXYzine pamoate 25 MG CAP PO PRN ×2 (10:54→18:14)
[2023-03-09] MEDS: OLANZapine 10 MG VIAL IM PRN ×2 (10:55→18:15)
--- NOTE | 2023-03-09 14:29 | P.HP ---
Psychiatric H&P - . H&P Date: 03/09/23 History & Physical: Allergies Allergy/AdvReac Type Severity Reaction Status Date / Time No Known Allergies Allergy Verified 03/09/23 09:36 Vital Signs Temp 97.7 F 03/09/23 11:00 Pulse 69 03/09/23 11:00 Resp 18 03/09/23 11:00 BP 142/88 03/09/23 11:00 Pulse Ox 98 03/09/23 07:51 FiO2 Intake & Output 03/08/23 03/09/23 03/09/23 18:59 06:59 18:59 Weight 95.254 kg 95.254 kg Laboratory Last Values WBC 7.4 k/uL (3.8-10.6) 03/09/23 02:56 RBC 4.90 m/uL (4.30-5.90) 03/09/23 02:56 Hgb 14.6 gm/dL (13.0-17.5) 03/09/23 02:56 Hct 42.9 % (39.0-53.0) 03/09/23 02:56 MCV 87.6 fL (80.0-100.0) 03/09/23 02:56 MCH 29.8 pg (25.0-35.0) 03/09/23 02:56 MCHC 34.0 g/dL (31.0-37.0) 03/09/23 02:56 RDW 13.4 % (11.5-15.5) 03/09/23 02:56 Plt Count 240 k/uL (150-450) 03/09/23 02:56 MPV 8.9 03/09/23 02:56 Neutrophils % 54 % 03/09/23 02:56 Lymphocytes % 34 % 03/09/23 02:56 Monocytes % 6 % 03/09/23 02:56 Eosinophils % 4 % 03/09/23 02:56 Basophils % 1 % 03/09/23 02:56 Neutrophils # 4.0 k/uL (1.3-7.7) 03/09/23 02:56 Lymphocytes # 2.5 k/uL (1.0-4.8) 03/09/23 02:56 Monocytes # 0.4 k/uL (0-1.0) 03/09/23 02:56 Eosinophils # 0.3 k/uL (0-0.7) 03/09/23 02:56 Basophils # 0.1 k/uL (0-0.2) 03/09/23 02:56 Sodium 146 mmol/L (137-145) H 03/09/23 02:56 Potassium 4.4 mmol/L (3.5-5.1) 03/09/23 02:56 Chloride 113 mmol/L (98-107) H 03/09/23 02:56 Carbon Dioxide 25 mmol/L (22-30) 03/09/23 02:56 Anion Gap 8 mmol/L 03/09/23 02:56 BUN 13 mg/dL (9-20) 03/09/23 02:56 Creatinine 0.76 mg/dL (0.66-1.25) 03/09/23 02:56 Est GFR (CKD-EPI)AfAm >90 (>60 ml/min/1.73 sqM) 03/09/23 02:56 Est GFR (CKD-EPI)NonAf >90 (>60 ml/min/1.73 sqM) 03/09/23 02:56 Glucose 89 mg/dL (74-99) 03/09/23 02:56 Calcium 9.1 mg/dL (8.4-10.2) 03/09/23 02:56 Total Bilirubin 0.2 mg/dL (0.2-1.3) 03/09/23 02:56 AST 30 U/L (17-59) 03/09/23 02:56 ALT 24 U/L (4-49) 03/09/23 02:56 Alkaline Phosphatase 47 U/L (38-126) 03/09/23 02:56 Total Protein 7.8 g/dL (6.3-8.2) 03/09/23 02:56 Albumin 4.3 g/dL (3.5-5.0) 03/09/23 02:56 Urine Color Yellow 03/09/23 06:06 Urine Appearance Clear (Clear) 03/09/23 06:06 Urine pH 6.5 (5.0-8.0) 03/09/23 06:06 Ur Specific [place] 1.022 (1.001-1.035) 03/09/23 06:06 Urine Protein Negative (Negative) 03/09/23 06:06 Urine Glucose (UA) Negative (Negative) 03/09/23 06:06 Urine Ketones Negative (Negative) 03/09/23 06:06 Urine Blood Negative (Negative) 03/09/23 06:06 Urine Nitrite Negative (Negative) 03/09/23 06:06 Urine Bilirubin Negative (Negative) 03/09/23 06:06 Urine Urobilinogen <2.0 mg/dL (<2.0) 03/09/23 06:06 Ur Leukocyte Esterase Negative (Negative) 03/09/23 06:06 Salicylates <1.0 mg/dL 03/09/23 02:56 Urine Opiates Screen Not Detected (NotDetected) 03/09/23 06:06 Ur Oxycodone Screen Not Detected (NotDetected) 03/09/23 06:06 Urine Methadone Screen Not Detected (NotDetected) 03/09/23 06:06 Ur Propoxyphene Screen Not Detected (NotDetected) 03/09/23 06:06 Acetaminophen <10.0 ug/mL 03/09/23 02:56 Ur Barbiturates Screen Not Detected (NotDetected) 03/09/23 06:06 U Tricyclic Antidepress Not Detected (NotDetected) 03/09/23 06:06 Ur Phencyclidine Scrn Not Detected (NotDetected) 03/09/23 06:06 Ur Amphetamines Screen Detected (NotDetected) H 03/09/23 06:06 U Methamphetamines Scrn Detected (NotDetected) H 03/09/23 06:06 U Benzodiazepines Scrn Not Detected (NotDetected) 03/09/23 06:06 Urine Cocaine Screen Not Detected (NotDetected) 03/09/23 06:06 U Marijuana (THC) Screen Detected (NotDetected) H 03/09/23 06:06 Serum Alcohol 66 mg/dL 03/09/23 02:56 Coronavirus (PCR) Not Detected (Not Detectd) 03/09/23 09:10 03/09/23 14:28 IDENTIFYING DATA: Patient is a , unemployed, homeless, 37-year-old male with a significant history of schizoaffective disorder, bipolar type who presents to the hospital on 03/09/2023 after reportedly overdosing on BuSpar. HPI: Patient presented to the hospital on 03/09/2023 brought in by EMS after reportedly overdosing on BuSpar. The patient was recently discharged from our psychiatric unit after being admitted from 02/26/2023 - 03/02/2023 for suicidal ideation. As per EMS, the patient was also recently just [facility] the [facility] and please suspect that he is looking for a place to stay. As per review of the patient's chart, he was kicked out of the home a [facility] yesterday for smelling like marijuana. He reported to the EPS nurse that he was feeling very lonely, did not have any social supports, and is suicidal. Upon evaluation on the psychiatric unit, the patient is not participating in the psychiatric interview. He only reports that he feels tired and does not want to speak at this time. He refuses the psychiatric evaluation. He did sign himself voluntarily to the psychiatric unit. When inquiring about the overdose, the patient is unable to apply if he filled his medication since he was last discharged. The patient was recently on our psychiatric unit and was discharged on a regimen of Seroquel, Haldol Decanoate, and BuSpar. He last received his Haldol Decanoate 200 mg IM on 02/27/2023. His next dose is due on 03/13/2023. PAST PSYCHIATRIC HISTORY: Patient has previous diagnoses of schizoaffective disorder, depressive type, alcohol use disorder, cocaine use disorder, cannabis use disorder, methamphetamine abuse, nicotine dependence he is currently on a regimen of Haldol Decanoate, Seroquel, and BuSpar. He was last discharged from our psychiatric unit on 03/02/2023. PMH: Past Medical History: No Reported History, Unable to Obtain, GERD/Reflux, Hypertension, Liver Disease Additional Past Medical History / Comment(s): Hepatitis C, DDD, back pain, bilateral carpel tunnel syndrome. He reports that he has heart disease that was found when he had kidney problems but he denies having a stress test or cardiac catheterization. History of Any Multi-Drug Resistant Organisms: None Reported MDRO Source:: unknown Past Surgical History: No Surgical Hx Reported, Unable to Obtain Additional Past Surgical History / Comment(s): Pt states he has had numerous "cysts" removed from where he injected IV drugs. Past Anesthesia/Blood Transfusion Reactions: No Reported Reaction, Unable to Obtain Additional Past Anesthesia/Blood Transfusion Reaction / Comment(s): Pt states he has never had surgery. Past Psychological History: Anxiety, Depression Smoking Status: Current every day smoker Past Alcohol Use History: None Reported Past Drug Use History: Heroin, Marijuana, Methamphetamine ALLERGIES: NO KNOWN DRUG ALLERGIES CHEMICAL DEPENDENCY HISTORY: Patient is in daily tobacco user. He does have history of alcohol abuse. He has a history of polysubstance use including heroin, marijuana, and methamphetamines. Patient tested positive for methamphetamines and Marijuana on admission. Serum alcohol was also elevated on admission. FAMILY PSYCHIATRIC/SUBSTANCE USE HISTORY: No reported family psychiatric history SOCIAL HISTORY: Patient is currently homeless. Recently kicked [facility] of the homeless [facility]. He is . He was kicked out of school after ninth grade. He has his GED now. MENTAL STATUS EXAM: General Appearance: Patient appears to be stated age is somnolent, and uncooperative. Patient appears to have poor hygiene and grooming. Behavior: Patient is sleeping in bed. He is arousable. Her somnolent. Speech: Patient's speech low in volume, and nonspontaneous. Mood/Affect: Patient reports their mood is tired, affect is congruent and somnolent. Suicidality/Homicidality: Unable to assess at this time. Perceptions: Unable to assess at this time. Though content/process: Unable to assess at this time. Memory and concentration: Unable to assess at this time. Judgment and insight: Very poor STRENGTHS/WEAKNESSES: strength is that patient is resourceful.. Weakness is that patient is currently homeless and engages in polysubstance abuse INTELLECT: average IMPRESSIONS: Schizoaffective disorder, depressive type Methamphetamine use disorder Cannabis use disorder Alcohol use disorder tobacco use disorder Rule out antisocial personality disorder Rule out malingering PLAN: -Patient is admitted under voluntary status to [facility] for stabilization of psychiatric symptoms and safety. Patient signed adult voluntary form and medication consent and is placed in patient's chart. -Strong suspicion for malingering as the patient is currently homeless and is likely present for secondary gain of housing. -Medications : Continue home medications of Seroquel 350 mg by mouth at bedtime for psychosis Haldol Decanoate 200 mg IM was less administered on 02/27/2023. Next dose due on 03/13/2023. -Zyprexa and Vistaril PRN for agitation/aggression -Patient refused to participate in the informed consent conversation due to his somnolence. -Internal Medicine consult to perform medical evaluation and physical. -NRT - nicotine patch -SW on board for discharge planning. Encourage patient to participate in groups to work on coping skills. 03/09/23 14:28
--- NOTE | 2023-03-09 18:02 | P.HPMEDMHU ---
History of Present Illness H&P Date: 03/09/23 Patient is a 37-year-old male with history of psychotic disorder, major depression, presenting with acute psychosis. [facility] has been consulted for medical management. He currently denies any chest pain, shortness of breath, abdominal pain, nausea, vomiting, urinary or bowel complaints. He smokes half pack a day, and uses amphetamine. He denies any alcohol use. WBC 7 .4, hemoglobin 14.6, sodium 146, creatinine 0.76, urinalysis negative, toxicology positive for amphetamine, methamphetamine, marijuana. Pertinent positives and negatives as discussed in HPI, a complete review of systems was performed and all other systems are negative. Patient seen and examined at bedside. Vital signs reviewed General: nontoxic, no distress, appears at stated age, drowsy Derm: warm, dry Head: atraumatic, normocephalic, symmetric Eyes: EOMI, no lid lag, anicteric sclera, pupils equal round reactive to light ENT: Nose and ears atraumatic Neck: No thyromegaly, supple Mouth: no lip lesion, mucus membranes moist Cardiovascular: S1S2 reg, no murmur, no edema Lungs: clear to auscultation bilateral, no rhonchi, no rales, no wheeze, no accessory muscle use Abdominal: soft, nontender to palpation, no guarding, no appreciable organomegaly Ext: no gross muscle atrophy, muscle strength muscle strength 5 out of 5 in all 4 extremities, no contractures Neuro: CN II-XII grossly intact Psych: Drowsy, oriented, appropriate affect Assessment/Plan: Acute psychosis Schizoaffective disorder Methamphetamine use disorder Cannabis use disorder Nicotine dependence Hypertension -Primary management per psychiatry -Hypertension likely the setting of substance use disorder, continue to monitor -Counseled regarding substance use cessation, smoking cessation Thank you for allowing us to participate in the care of this pleasant patient. Do not hesitate to contact us with questions. Someone can be reached from the [facility] hospitalist group all hours of the day at [phone] or via [employer]. Past Medical History Past Medical History: No Reported History, Unable to Obtain, GERD/Reflux, Hypertension, Liver Disease Additional Past Medical History / Comment(s): Hepatitis C, DDD, back pain, bilateral carpel tunnel syndrome. He reports that he has heart disease that was found when he had kidney problems but he denies having a stress test or cardiac catheterization. History of Any Multi-Drug Resistant Organisms: None Reported MDRO Source:: unknown Past Surgical History: No Surgical Hx Reported, Unable to Obtain Additional Past Surgical History / Comment(s): Pt states he has had numerous "cysts" removed from where he injected IV drugs. Past Anesthesia/Blood Transfusion Reactions: No Reported Reaction, Unable to Obtain Additional Past Anesthesia/Blood Transfusion Reaction / Comment(s): Pt states he has never had surgery. Past Psychological History: Anxiety, Depression Additional Psychological History / Comment(s): He has had multiple [facility] mental health admissions. Smoking Status: Current every day smoker Past Alcohol Use History: None Reported Additional Past Alcohol Use History / Comment(s): Pt started smoking in 1994 and smokes 1ppd Past Drug Use History: Heroin, Marijuana, Methamphetamine Additional Drug Use History / Comment(s): Pt states he has used drugs in the past but none recently d/t no money. 12/15/21 UDS +marijuana. Denies using drugs this admission but has has meth, amph, and marajuana in his drug screen 03-09-23. - Past Family History Mother Family Medical History: Unable to Obtain, Rheumatoid Arthritis (RA) Additional Family Medical History / Comment(s): Mother is . Father Family Medical History: Coronary Artery Disease (CAD) Medications and Allergies Home Medications Medication Instructions Recorded Confirmed Type Haloperidol Decanoate [Haldol D] 200 mg IM Q14D 06/26/22 03/09/23 History QUEtiapine FUMARATE [SEROquel] 300 mg PO HS 02/26/23 03/09/23 History QUEtiapine [SEROquel] 50 mg PO HS 02/26/23 03/09/23 History busPIRone HCL [Buspar] 30 mg PO BID 30 Days #60 tab 03/02/23 03/09/23 Rx Allergies Allergy/AdvReac Type Severity Reaction Status Date / Time No Known Allergies Allergy Verified 03/09/23 09:36 Physical Exam Vitals: Vital Signs Temp Pulse Pulse Resp BP BP Pulse Ox 03/09/23 11:00 97.7 F 69 18 142/88 03/09/23 07:51 90 18 155/95 98 03/09/23 02:25 98 F 84 16 141/90 95 Intake and Output 03/09/23 03/09/23 03/09/23 06:59 14:59 22:59 Other: Weight 95.254 kg 95.254 kg Cranial Nerve Examination - Cranial Nerves Cranial Nerve II- Optic: Intact Cranial Nerve III- Oculomotor: Intact Cranial Nerve IV- Trochlear: Intact Cranial Nerve V- Trigeminal: Intact Cranial Nerve - Abducens: Intact Cranial Nerve VII- Facial: Intact Cranial Nerve VIII- Auditory: Intact Cranial Nerve IX- Glossopharyngeal: Intact Cranial Nerve X- Vagus: Intact Cranial Nerve XI- Accessory: Intact Cranial Nerve XII- Hypoglossal: Intact Results CBC & Chem 7: 03/09/23 02:56 03/09/23 02:56 Labs: Abnormal Lab Results - Last 24 Hours (Table) 03/09/23 03/09/23 Range/Units 02:56 06:06 Sodium 146 H (137-145) mmol/L Chloride 113 H (98-107) mmol/L Ur Amphetamines Screen Detected H (NotDetected) U Methamphetamines Scrn Detected H (NotDetected) U Marijuana (THC) Screen Detected H (NotDetected) Thrombosis Risk Factor Assmnt - Choose All That Apply Any of the Below Risk Factors Present?: No Other Risk Factors: No Other congenital or acquired thrombophilia - If yes, enter type in comment: No Thrombosis Risk Factor Assessment Level: Very Low Risk
[2023-03-10] MEDS: QUEtiapine 50 MG TAB PO SCH ×2 (04:09→20:25)
[2023-03-10] MEDS: QUEtiapine 100 MG TAB PO SCH ×2 (04:09→20:25)
[2023-03-10] MEDS: hydrOXYzine pamoate 25 MG CAP PO PRN ×3 (08:26→17:56)
[2023-03-10] MEDS: NICOTINE 14MG/24HR PATCH TRANSDERM SCH (08:58)
[2023-03-10] MEDS ORDERED: chlorproMAZINE 25 MG/ML 2 ML AMP IM PRN (12:28)
[2023-03-10] MEDS: chlorproMAZINE 25 MG TAB PO PRN ×2 (12:43→17:56)
--- NOTE | 2023-03-10 14:10 | P.PN ---
Progress Note - Text Progress Note Date: 03/10/23 Interval History: Patient was seen bedside this AM. He was superficially cooperative and stating he was "not good" he reports having suicidal ideation but says that it has improved a little. He reports low energy and says that he had trouble sleeping. However, he was observed to be resting before current evaluation. Patient was encouraged to be active during the daytime but was uninterested in this recommendation. He requested that he be started on Thorazine as needed instead of the Zyprexa because he feels more calm with the Thorazine. Discussed the side effects and risks and patient expressed understanding. At this time patient denies any homicidal ideation, intent or plan. He endorses suicidal ideation although denies a current plan. Patient denies any auditory, visual hallucinations and denies any paranoia or delusions. Patient denies any side effects from the medications and has been compliant with meds. Mental Status Exam: General Appearance: Patient appears to be stated age is somnolent, and uncooperative. Patient appears to have poor hygiene and grooming. Behavior: Patient is sleeping in bed. He is arousable. Somnolent. Speech: Patient's speech low in volume, and nonspontaneous. Mood/Affect: Patient reports their mood is tired, affect is congruent and somnolent. Suicidality/Homicidality: Endorses suicidal ideation and denies homicidal ideation Perceptions: He denies auditory and visual hallucinations Though content/process: Fixated on medications. Memory and concentration: Reduce concentration to interview but fair memory Judgment and insight: Very poor Assessment Schizoaffective disorder, depressive type Methamphetamine use disorder Cannabis use disorder Alcohol use disorder tobacco use disorder Rule out antisocial personality disorder Rule out malingering Plan: -Patient is admitted under voluntary status to MHU for stabilization of psychiatric symptoms and safety. Patient signed adult voluntary form and medication consent and is placed in patient's chart. -Strong suspicion for malingering as the patient is currently homeless and is likely present for secondary gain of housing. -Medications : Continue home medications of Seroquel 350 mg by mouth at bedtime for psychosis Haldol Decanoate 200 mg IM was less administered on 02/27/2023. Next dose due on 03/13/2023. -Thorazine and Vistaril PRN for agitation/aggression -Patient was informed of the risks, benefits and side effects of the medication and patient verbally consented to taking the medications. -Internal Medicine on board -NRT - nicotine patch - on board for discharge planning. Encourage patient to participate in groups to work on coping skills. Likely discharge early next week
[2023-03-11] MEDS: NICOTINE 14MG/24HR PATCH TRANSDERM SCH (08:06)
[2023-03-11] MEDS: hydrOXYzine pamoate 25 MG CAP PO PRN ×3 (08:08→20:18)
[2023-03-11] MEDS: chlorproMAZINE 25 MG TAB PO PRN ×3 (08:08→20:17)
--- NOTE | 2023-03-11 17:13 | P.PN ---
Progress Note - Text Progress Note Date: 03/11/23 Interval History: Patient was seen bedside this AM. He was superficially cooperative and stating he was "good" and said he has been feeling better. He offers brief concrete answers. He repeatedly requests for Thorazine and was informed of what this is indicated for. He denies suicidal ideation today. He reports low energy and good sleep. He endorses fair appetite. He is observed to be ambulating about the unit during daytime. He states that he is comfortable with receiving the dose of Haldol PENA in 2 days. At this time patient denies any homicidal ideation, intent or plan. He endorses suicidal ideation although denies a current plan. Patient denies any auditory, visual hallucinations and denies any paranoia or delusions. Patient denies any side effects from the medications and has been compliant with meds. Mental Status Exam: General Appearance: Patient appears to be stated age is somnolent, and uncooperative. Patient appears to have poor hygiene and grooming. Behavior: Patient is sleeping in bed. He is arousable. Somnolent. Speech: Patient's speech low in volume, and nonspontaneous. Brief responses Mood/Affect: Patient reports their mood is tired, affect is congruent and somnolent. Suicidality/Homicidality: Endorses suicidal ideation and denies homicidal ideation Perceptions: He denies auditory and visual hallucinations Though content/process: Fixated on medications. [place] Memory and concentration: Reduce concentration to interview but fair memory Judgment and insight: Very poor Assessment Schizoaffective disorder, depressive type Methamphetamine use disorder Cannabis use disorder Alcohol use disorder tobacco use disorder Rule out antisocial personality disorder Rule out malingering Plan: -Patient is admitted under voluntary status to MHU for stabilization of psychiatric symptoms and safety. Patient signed adult voluntary form and medication consent and is placed in patient's chart. -Strong suspicion for malingering as the patient is currently homeless and is likely present for secondary gain of housing. -Medications : Continue home medications of Seroquel 350 mg by mouth at bedtime for psychosis Haldol Decanoate 200 mg IM was less administered on 02/27/2023. Next dose due on 03/13/2023. -Thorazine and Vistaril PRN for agitation/aggression -Patient was informed of the risks, benefits and side effects of the medication and patient verbally consented to taking the medications. -Internal Medicine on board -NRT - nicotine patch - on board for discharge planning. Encourage patient to participate in groups to work on coping skills. Likely discharge early next week
[2023-03-11] MEDS: QUEtiapine 100 MG TAB PO SCH (20:18)
[2023-03-11] MEDS: QUEtiapine 50 MG TAB PO SCH (20:18)
[2023-03-12 06:24] VITALS: PULSE 63; RESP 16
[2023-03-12] MEDS: hydrOXYzine pamoate 25 MG CAP PO PRN ×3 (07:07→18:39)
[2023-03-12] MEDS: chlorproMAZINE 25 MG TAB PO PRN ×3 (07:07→18:39)
[2023-03-12] MEDS: ACETAMINOPHEN TAB 325 MG TAB PO PRN ×3 (07:08→18:37)
[2023-03-12] MEDS: NICOTINE 14MG/24HR PATCH TRANSDERM SCH (07:10)
--- NOTE | 2023-03-12 16:20 | P.PN ---
Progress Note - Text Progress Note Date: 03/12/23 Interval History: Patient was seen bedside this AM. He was superficially cooperative and stating he was "good" and said he has been feeling better. He offers brief concrete answers. He has been requesting Thorazine somewhat less frequently but becomes agitated when it is not given immediately. He denies suicidal ideation today. He reports low energy and good sleep. He endorses fair appetite. He is observed to be ambulating about the unit during daytime. He states that he is comfortable with receiving the dose of Haldol PENA tomorrow. He asks if he might be discharged following that. At this time patient denies any homicidal ideation, intent or plan. He endorses suicidal ideation although denies a current plan. Patient denies any auditory, visual hallucinations and denies any paranoia or delusions. Patient denies any side effects from the medications and has been compliant with meds. Mental Status Exam: General Appearance: Patient appears to be stated age is somnolent, and uncooperative. Patient appears to have poor hygiene and grooming. Behavior: Patient is sleeping in bed. He is arousable. Somnolent. Speech: Patient's speech low in volume, and nonspontaneous. Brief responses Mood/Affect: Patient reports their mood is tired, affect is congruent and somnolent. Suicidality/Homicidality: Endorses suicidal ideation and denies homicidal ideation Perceptions: He denies auditory and visual hallucinations Though content/process: Fixated on medications. [place] Memory and concentration: Reduce concentration to interview but fair memory Judgment and insight: Very poor Assessment Schizoaffective disorder, depressive type Methamphetamine use disorder Cannabis use disorder Alcohol use disorder tobacco use disorder Rule out antisocial personality disorder Rule out malingering Plan: -Patient is admitted under voluntary status to MHU for stabilization of psychiatric symptoms and safety. Patient signed adult voluntary form and medication consent and is placed in patient's chart. -Strong suspicion for malingering as the patient is currently homeless and is likely present for secondary gain of housing. -Medications : Continue home medications of Seroquel 350 mg by mouth at bedtime for psychosis Haldol Decanoate 200 mg IM was less administered on 02/27/2023. Next dose due on 03/13/2023. (QTc was 379 on 03/09/23) -Thorazine and Vistaril PRN for agitation/aggression -Patient was informed of the risks, benefits and side effects of the medication and patient verbally consented to taking the medications. -Internal Medicine on board -NRT - nicotine patch -SW on board for discharge planning. Encourage patient to participate in groups to work on coping skills. Likely discharge Monday
[2023-03-12] MEDS: QUEtiapine 100 MG TAB PO SCH (20:16)
[2023-03-12] MEDS: QUEtiapine 50 MG TAB PO SCH (20:16)
[2023-03-13 06:25] VITALS: BP 102/59; TEMP 97.8
[2023-03-13] MEDS: ACETAMINOPHEN TAB 325 MG TAB PO PRN ×2 (08:35→13:09)
[2023-03-13] MEDS: hydrOXYzine pamoate 25 MG CAP PO PRN ×2 (08:35→13:08)
[2023-03-13] MEDS: NICOTINE 14MG/24HR PATCH TRANSDERM SCH (08:38)
[2023-03-13] MEDS ORDERED: HALOPERIDOL DECANOATE 100 MG/ML 1 ML VIAL IM SCH ×2 (12:00→12:45)
--- NOTE | 2023-03-13 12:56 | P.DS ---
Providers Date of admission: 03/09/23 10:12 Expected date of discharge: 03/13/23 Attending physician: Jurgen Mcmanus MD Consults: 03/09/23 10:16 Consult Physician Routine Consulting Provider: Seth Flores Consult Reason/Comments: H and P Do you want consulting provider notified?: Yes Primary care physician: Stated None - Discharge Diagnosis(es) (1) Schizoaffective disorder, bipolar type Current Visit: Yes Status: Acute Priority: High (2) Stimulant dependence Current Visit: Yes Status: Chronic Priority: High (3) Cannabis abuse Current Visit: Yes Status: Chronic Priority: Medium (4) Alcohol abuse Current Visit: Yes Status: Chronic Priority: Medium Hospital Course: Patient had his psychiatric H&P done by Dr. Jurgen Mcmanus and general physical examination done by Nilson Pang on 03/09/2023. After his psychiatric H&P he was continued on Seroquel 350 mg at bedtime and when necessary Thorazine and Vistaril. He started to feel better and got free of suicide thoughts and did not show any behavior indicative of suicide risk. He stayed most of the time by himself about socializing. He did not attend the groups either. Since he is on Haldol D2 100 mg IM every 2 weeks, will be getting his shot today and had been abusing meth, felt bad and apparently overdosed on his BuSpar. He said he was not taking his Seroquel. In view of all these it was agreed to discharge him just on Haldol D2 100 mg IM every 2 weeks and nothing by mouth to prevent future overdose. His condition was discussed by the treatment team and it was agreed to discharge him. He agreed to go to the [facility] and get his biweekly Haldol injection, try not to abuse drugs and alcohol and seek counseling regarding substance abuse and coping skills.. Mental status examination: This is a right ambulatory male with fair to adequate hygiene. He does not show any psychomotor agitation or retardation. But he appears to be a little bit hyperactive. His speech is spontaneous relevant and goal-directed. His mood is euthymic and affect is appropriate to the thought content. He denies current hallucinations, delusional thinking, suicide and homicide thoughts. His sensorium is clear. Assessment: See under mental status examination in hospital course section. Health Concerns: None Pertinent Studies: None Procedures: Plan Patient Condition at Discharge: Stable Plan - Discharge Summary Discharge Rx Participant: No New Discharge Prescriptions: New Haloperidol Decanoate [Haldol D] 200 mg IM Q14D each Magnesium Hydroxide [Milk of Magnesia Concentrate] 2,400 mg PO DAILY PRN ml PRN Reason: Constipation Mag Hydrox/Al Hydrox/Simeth [Maalox] 30 ml PO Q4HR PRN ml PRN Reason: Gi Upset Acetaminophen Tab [Tylenol] 650 mg PO Q4HR PRN tab PRN Reason: Mild Pain/Discomfort Continue Haloperidol Decanoate [Haldol D] 200 mg IM Q14D Discontinued QUEtiapine [SEROquel] 50 mg PO HS busPIRone HCL [Buspar] 30 mg PO BID 30 Days #60 tab QUEtiapine FUMARATE [SEROquel] 300 mg PO HS Discharge Medication List Haloperidol Decanoate [Haldol D] 200 mg IM Q14D 06/26/22 [History] Acetaminophen Tab [Tylenol] 650 mg PO Q4HR PRN tab 03/13/23 [Rx] Haloperidol Decanoate [Haldol D] 200 mg IM Q14D each 03/13/23 [Rx] Mag Hydrox/Al Hydrox/Simeth [Maalox] 30 ml PO Q4HR PRN ml 03/13/23 [Rx] Magnesium Hydroxide [Milk of Magnesia Concentrate] 2,400 mg PO DAILY PRN ml 03/13/23 [Rx] Follow up Appointment(s)/Referral(s): None,Stated [Primary Care Provider] - 1-2 days Activity/Diet/Wound Care/Special Instructions: Avoid the use of street drugs and alcohol. Take all medications as prescribed. When you are in need of refills on your medications, please contact your medical provider and/or outpatient psychiatrist to have this done. Please go to scheduled outpatient appointments for aftercare treatment. If symptoms return or become worse, call the crisis line at and/or go to the nearest emergency room for evaluation.
[2023-03-13] MEDS: chlorproMAZINE 25 MG TAB PO PRN (13:08)
== END 2023-03-13 15:08 | disposition home or self-care (01) | DRG 750 ==
LOC: EC 02:17 → 3MHU 10:12
PROVIDERS: ADMIT Psychiatry & Neurology Psychiatry; ATTEND Psychiatry & Neurology Psychiatry
DX: F25.0 Schizoaffective disorder, bipolar type (principal); R45.851 Suicidal ideations; I11.9 Hypertensive heart disease without heart failure; F23 Brief psychotic disorder; T50.902A Poisoning by unspecified drugs, medicaments and biological substances, intentional self-harm, initial encounter; K76.9 Liver disease, unspecified; F14.10 Cocaine abuse, uncomplicated; F15.10 Other stimulant abuse, uncomplicated; F10.20 Alcohol dependence, uncomplicated; F12.10 Cannabis abuse, uncomplicated; Z28.310 Unvaccinated for COVID-19; F17.200 Nicotine dependence, unspecified, uncomplicated; Y90.3 Blood alcohol level of 60-79 mg/100 ml; K21.9 Gastro-esophageal reflux disease without esophagitis; M54.9 Dorsalgia, unspecified; F19.90 Other psychoactive substance use, unspecified, uncomplicated; Z86.19 Personal history of other infectious and parasitic diseases; Z79.899 Other long term (current) drug therapy; Z71.6 Tobacco abuse counseling; Z71.51 Drug abuse counseling and surveillance of drug abuser; Z59.02 Unsheltered homelessness; Z56.0 Unemployment, unspecified
CPT/HCPCS: 36415; 80053; 80143; 80179; 80306; 80320; 81003; 82075; 85025; 87635; 93005; 96361; 96374; 99285

== ENCOUNTER 2023-03-18 20:24 | Observation (INO) | payer OTHER ==
[2023-03-18] MEDS ORDERED: SODIUM CHLORIDE 0.9% 1,000 ML IV STA (20:45)
--- NOTE | 2023-03-18 20:47 | ED ---
General Adult HPI - General Chief complaint: Overdose Stated complaint: Mental Health Time Seen by Provider: 03/18/23 20:45 Source: patient, EMS Mode of arrival: EMS Limitations: no limitations - History of Present Illness Initial comments: Patient brought to the ED by ambulance for evaluation. Patient is homeless and states that he is currently residing in a homeless custodial. Patient reports taking 60 of his Effexor pills about 30 minutes prior to coming to the ED. Patient states that there were 60 pills in the bottle, and he states that he had not taken any until he took all of them tonight. Patient states that he is unsure of the dose of the Effexor that he took. Patient states that he did not bring the pill bottle with him to the ED. Patient also admits to drinking a pint of whiskey today. Patient states that he did smoke marijuana earlier today as well, and he states that he last used methamphetamine yesterday. Patient denies any other illicit drug use or medication abuse/overdose. Patient states that he took these pills in a suicidal attempt. Patient states that he currently feels "groggy" and anxious. Patient denies any other suicidal attempt, trauma or injury, any pain, fever or chills, headache, focal neuro deficit, chest pain or pressure, dyspnea, palpitations, dizziness, abdominal pain, nausea/vomiting/diarrhea, or any other symptoms or complaints. - Related Data Previous Rx's Medication Instructions Recorded Acetaminophen Tab [Tylenol] 650 mg PO Q4HR PRN tab 03/13/23 Haloperidol Decanoate [Haldol D] 200 mg IM Q14D each 03/13/23 Mag Hydrox/Al Hydrox/Simeth 30 ml PO Q4HR PRN ml 03/13/23 [Maalox] Magnesium Hydroxide [Milk of 2,400 mg PO DAILY PRN ml 03/13/23 Magnesia Concentrate] Allergies Allergy/AdvReac Type Severity Reaction Status Date / Time No Known Allergies Allergy Verified 03/09/23 09:36 Review of Systems ROS Statement: Those systems with pertinent positive or pertinent negative responses have been documented in the HPI. ROS Other: All systems not noted in ROS Statement are negative. Past Medical History Past Medical History: No Reported History, Unable to Obtain, GERD/Reflux, Hy pertension, Liver Disease Additional Past Medical History / Comment(s): Hepatitis C, DDD, back pain, bilateral carpel tunnel syndrome. He reports that he has heart disease that was found when he had kidney problems but he denies having a stress test or cardiac catheterization. History of Any Multi-Drug Resistant Organisms: None Reported MDRO Source:: unknown Past Surgical History: No Surgical Hx Reported, Unable to Obtain Additional Past Surgical History / Comment(s): Pt states he has had numerous "cysts" removed from where he injected IV drugs. Past Anesthesia/Blood Transfusion Reactions: No Reported Reaction, Unable to Obtain Additional Past Anesthesia/Blood Transfusion Reaction / Comment(s): Pt states he has never had surgery. Past Psychological History: Anxiety, Depression Smoking Status: Current every day smoker Past Alcohol Use History: None Reported Past Drug Use History: Heroin, Marijuana, Methamphetamine - Past Family History Mother Family Medical History: Unable to Obtain, Rheumatoid Arthritis (RA) Additional Family Medical History / Comment(s): Mother is . Father Family Medical History: Coronary Artery Disease (CAD) General Exam Limitations: no limitations General appearance: alert, appears intoxicated, other (Smells of alcohol) Head exam: Present: atraumatic, normocephalic Eye exam: Present: PERRL, EOMI ENT exam: Present: mucous membranes moist Neck exam: Present: other (Trachea is in midline). Absent: tenderness Respiratory exam: Present: normal lung sounds bilaterally. Absent: respiratory distress, wheezes, rales, rhonchi, stridor Cardiovascular Exam: Present: regular rate, normal rhythm, normal heart sounds, other (Normal radial pulses bilaterally) GI/Abdominal exam: Present: soft. Absent: distended, tenderness, guarding Extremities exam: Present: full ROM. Absent: tenderness, pedal edema, calf tenderness Neurological exam: Present: alert, oriented X3, CN II-XII intact. Absent: motor sensory deficit Psychiatric exam: Present: other (Patient appears intoxicated and smells of alcohol) Skin exam: Present: warm, dry, intact, normal color Course Vital Signs 03/18/23 03/18/23 03/18/23 20:25 21:04 21:10 Temperature 98.2 F Pulse Rate 91 90 84 Respiratory 18 Rate Blood Pressure 143/97 143/97 116/68 O2 Sat by Pulse 97 97 Oximetry 03/18/23 03/18/23 03/18/23 21:30 21:40 21:50 Temperature Pulse Rate 78 83 82 Respiratory 18 Rate Blood Pressure 110/75 160/95 121/84 O2 Sat by Pulse 97 98 99 Oximetry 03/18/23 03/18/23 22:00 22:10 Temperature Pulse Rate 85 89 Respiratory Rate Blood Pressure 121/84 154/93 O2 Sat by Pulse Oximetry - Reevaluation(s) Reevaluation #1: 03/18/23 21:14 Patient's ED RN has discussed the patient's case with [facility]. They have recommended a single dose of activated charcoal at this time. They recommend a repeat EKG in 4-6 hours, IV fluids for hypotension and benzodiazepines for agitation/seizures. 03/18/23 22:22 Case, H&P, test results, ED management thus far and discussion with [facility] as above were discussed with Dr. Blair. He accepts hospital admission. He has no further recommendations at this time. EKG Findings - EKG Comments: EKG Findings:: ED physician interpretation: Normal sinus rhythm, ventricular rate of 89 bpm, no ectopy, normal NC and QRS intervals, normal QT interval, no rmal axis, no ST or T-wave abnormality Medical Decision Making - Medical Decision Making Was pt. sent in by a medical professional or institution (, PA, [employer]AL [employer]ER, urgent care, hospital, or senior care...) When possible be specific @ -No Did you speak to anyone other than the patient for history (EMS, parent, family, police, friend...)? What history was obtained from this source @ -No Did you review nursing and triage notes (agree or disagree)? Why? @ -I reviewed and agree with nursing and triage notes Were old charts reviewed (outside hosp., previous admission, EMS record, old EKG, old radiological studies, urgent care reports/EKG's, senior care records)? Report findings @ -No old charts were reviewed Differential Diagnosis (chest pain, altered mental status, abdominal pain women, abdominal pain men, vaginal bleeding, weakness, fever, dyspnea, syncope, headache, dizziness, GI bleed, back pain, seizure, CVA, palpatations, mental health, musculoskeletal)? @ -Suicidal ideations, depression, anxiety, psychiatric disease, liver disease, homelessness, medication abuse, medication overdose, suicidal attempt, electrolyte abnormality, malingering, drug abuse, alcohol abuse EKG interpreted by me (3pts min.). @ -As above X-rays interpreted by me (1pt min.). @ -None done CT interpreted by me (1pt min.). @ -None done U/S interpreted by me (1pt. min.). @ -None done What testing was considered but not performed or refused? (CT, X-rays, U/S, labs)? Why? @ -None What meds were considered but not given or refused? Why? @ -None Did you discuss the management of the patient with other professionals (professionals i.e. , PA, [employer]ER, lab, RT, psych nurse, high school social studies teacher, polishing pad mounter, teacher, eeo officer, oil field caser)? Give summary @ -As above. Was smoking cessation discussed for >3mins.? @ -No Was critical care preformed (if so, how long)? @ -No Were there social determinants of health that impacted care today? How? (Homelessness, low income, unemployed, alcoholism, drug addiction, transportation, low edu. Level, literacy, decrease access to med. care, long term, rehab)? @ -Patient is homeless and has presented to the ED from a homeless custodial. Homelessness will impact the patient's ability to have close outpatient follow- up. Was there de-escalation of care discussed even if they declined (Discuss DNR or withdrawal of care, Hospice)? DNR status @ -No What co-morbidities impacted this encounter? (DM, HTN, Smoking, COPD, CAD, Cancer, CVA, ARF, Chemo, Hep., AIDS, mental health diagnosis, sleep apnea, morbid obesity)? @ -None Was patient admitted / discharged? Hospital course, mention meds given and route, prescriptions, significant lab abnormalities, going to OR and other pertinent info. @ -Patient has been alert and breathing comfortably in the ED. Patient has been hemodynamically stable. Given the patient's reported ingestion of 60 pills of Effexor, [facility] has recommended observation for symptom development and repeat EKG's. Dr. Blair has accepted hospital admission. Patient has been treated with IV fluids in the ED. Patient was also given a dose of activated charcoal in the ED. Undiagnosed new problem with uncertain prognosis? @ -No Drug Therapy requiring intensive monitoring for toxicity (Heparin, Nitro, Insulin, Cardizem)? @ -No Were any procedures done? @ -No Diagnosis/symptom? @ -Suicidal attempt with Effexor overdose Acute, or Chronic, or Acute on Chronic? @ -Acute Uncomplicated (without systemic symptoms) or Complicated (systemic symptoms)? @ -default Side effects of treatment? @ -No Exacerbation, Progression, or Severe Exacerbation? @ -No Poses a threat to life or bodily function? How? (Chest pain, USA, MS, pneumonia, PE, COPD, DKA, ARF, appy, cholecystitis, CVA, Diverticulitis, Homicidal, Suicidal, threat to staff... and all critical care pts) @ -There is potential for possible threat to life given this overdose. Diagnosis/symptom? @ -Alcohol intoxication Acute, or Chronic, or Acute on Chronic? @ -Acute Uncomplicated (without systemic symptoms) or Complicated (systemic symptoms)? @ -default Side effects of treatment? @ -none Exacerbation, Progression, or Severe Exacerbation] @ -no Poses a threat to life or bodily function? @ -no - Lab Data Result diagrams: 03/18/23 20:34 03/18/23 20:34 Lab Results 03/18/23 03/18/23 03/18/23 Range/Units 20:34 20:34 20:34 WBC 11.3 H (3.8-10.6) k/uL RBC 5.11 (4.30-5.90) m/uL Hgb 14.4 (13.0-17.5) gm/dL Hct 42.8 (39.0-53.0) % MCV 83.7 (80.0-100.0) fL MCH 28.2 (25.0-35.0) pg MCHC 33.7 (31.0-37.0) g/dL RDW 12.9 (11.5-15.5) % Plt Count 243 (150-450) k/uL MPV 8.7 Neutrophils % 60 % Lymphocytes % 30 % Monocytes % 6 % Eosinophils % 1 % Basophils % 0 % Neutrophils # 6.8 (1.3-7.7) k/uL Lymphocytes # 3.4 (1.0-4.8) k/uL Monocytes # 0.6 (0-1.0) k/uL Eosinophils # 0.1 (0-0.7) k/uL Basophils # 0.0 (0-0.2) k/uL PT (9.0-12.0) sec INR (<1.2) APTT (22.0-30.0) sec Sodium 141 (137-145) mmol/L Potassium 3.8 (3.5-5.1) mmol/L Chloride 104 (98-107) mmol/L Carbon Dioxide 22 (22-30) mmol/L Anion Gap 15 mmol/L BUN 14 (9-20) mg/dL Creatinine 0.72 (0.66-1.25) mg/dL Est GFR (CKD-EPI)AfAm >90 (>60 ml/min/1.73 sqM) Est GFR (CKD-EPI)NonAf >90 (>60 ml/min/1.73 sqM) Glucose 124 H (74-99) mg/dL Plasma Lactic Acid Sohail 2.9 H* (0.7-2.0) mmol/L Calcium 9.1 (8.4-10.2) mg/dL Total Bilirubin 0.3 (0.2-1.3) mg/dL AST 35 (17-59) U/L ALT 21 (4-49) U/L Alkaline Phosphatase 52 (38-126) U/L Total Protein 7.6 (6.3-8.2) g/dL Albumin 4.3 (3.5-5.0) g/dL Salicylates <1.0 mg/dL Acetaminophen <10.0 ug/mL Serum Alcohol 124 mg/dL 03/18/23 Range/Units 20:34 WBC (3.8-10.6) k/uL RBC (4.30-5.90) m/uL Hgb (13.0-17.5) gm/dL Hct (39.0-53.0) % MCV (80.0-100.0) fL MCH (25.0-35.0) pg MCHC (31.0-37.0) g/dL RDW (11.5-15.5) % Plt Count (150-450) k/uL MPV Neutrophils % % Lymphocytes % % Monocytes % % Eosinophils % % Basophils % % Neutrophils # (1.3-7.7) k/uL Lymphocytes # (1.0-4.8) k/uL Monocytes # (0-1.0) k/uL Eosinophils # (0-0.7) k/uL Basophils # (0-0.2) k/uL PT 10.4 (9.0-12.0) sec INR 1.0 (<1.2) APTT 23.4 (22.0-30.0) sec Sodium (137-145) mmol/L Potassium (3.5-5.1) mmol/L Chloride (98-107) mmol/L Carbon Dioxide (22-30) mmol/L Anion Gap mmol/L BUN (9-20) mg/dL Creatinine (0.66-1.25) mg/dL Est GFR (CKD-EPI)AfAm (>60 ml/min/1.73 sqM) Est GFR (CKD-EPI)NonAf (>60 ml/min/1.73 sqM) Glucose (74-99) mg/dL Plasma Lactic Acid Sohail (0.7-2.0) mmol/L Calcium (8.4-10.2) mg/dL Total Bilirubin (0.2-1.3) mg/dL AST (17-59) U/L ALT (4-49) U/L Alkaline Phosphatase (38-126) U/L Total Protein (6.3-8.2) g/dL Albumin (3.5-5.0) g/dL Salicylates mg/dL Acetaminophen ug/mL Serum Alcohol mg/dL Disposition Clinical Impression: Overdose of venlafaxine, Suicide attempt, Alcohol intoxication Disposition: ADMITTED IP TO THIS HOSP Condition: Stable Is patient prescribed a controlled substance at d/c from ED?: No Referrals: None,Stated [Primary Care Provider] - 1-2 days Time of Disposition: 22:23
[2023-03-18 21:03] LABS: Basophils % (A) 0 %; Eosinophils # (A) 0.1 k/uL (0-0.7); Eosinophils % (A) 1 %; HCT 42.8 % (39.0-53.0); HGB 14.4 gm/dL (13.0-17.5); Lymphocytes # (A) 3.4 k/uL (1.0-4.8); Lymphocytes % (A) 30 %; MCH 28.2 pg (25.0-35.0); MCHC 33.7 g/dL (31.0-37.0); MCV 83.7 fL (80.0-100.0); Mean Platelet Volume 8.7; Monocytes # (A) 0.6 k/uL (0-1.0); Monocytes % (A) 6 %; Neutrophils # (A) 6.8 k/uL (1.3-7.7); Neutrophils % (A) 60 %; Platelet Count 243 k/uL (150-450); RBC 5.11 m/uL (4.30-5.90); RDW 12.9 % (11.5-15.5); WBC 11.3 k/uL (3.8-10.6)
[2023-03-18 21:08] LABS: ALT 21 U/L (4-49); AST 35 U/L (17-59); Acetaminophen <10.0 ug/mL; African American GFR (CKD) >90 (>60 ml/min/1.73 sqM); Albumin 4.3 g/dL (3.5-5.0); Alkaline Phosphatase 52 U/L (38-126); Anion Gap 15 mmol/L; Blood Urea Nitrogen 14 mg/dL (9-20); Calcium 9.1 mg/dL (8.4-10.2); Carbon Dioxide 22 mmol/L (22-30); Chloride 104 mmol/L (98-107); Glucose 124 mg/dL (74-99); Non-African American GFR(CKD) >90 (>60 ml/min/1.73 sqM); Potassium 3.8 mmol/L (3.5-5.1); Salicylate <1.0 mg/dL; Sodium 141 mmol/L (137-145); Total Bilirubin 0.3 mg/dL (0.2-1.3); Total Protein 7.6 g/dL (6.3-8.2)
[2023-03-18 21:14] LABS: Alcohol 124 mg/dL
[2023-03-18] MEDS ORDERED: ACTIVATED CHARCOAL-SORBITOL 50 GM/240 ML BOTTLE PO STA (21:16)
[2023-03-18 21:34] LABS: Partial Thromboplastin Time 23.4 sec (22.0-30.0); Prothrombin Time 10.4 sec (9.0-12.0)
[2023-03-18] MEDS ORDERED: NALOXONE 0.4 MG/ML 1 ML VIAL IV PRN (22:23)
[2023-03-18] MEDS: SODIUM CHLORIDE 0.9% 1,000 ML IV SCH (23:35)
[2023-03-19 01:58] LABS: Amphetamine Screen,Urine Detected (NotDetected); Barbiturate Screen,Urine Not Detected (NotDetected); Benzodiazepines Screen,Urine Not Detected (NotDetected); Cocaine Screen,Urine Detected (NotDetected); Methadone Screen, Urine Not Detected (NotDetected); Opiate Screen,Urine Not Detected (NotDetected); Oxycodone Screen, Urine Not Detected (NotDetected); Phencyclidine Screen,Urine Not Detected (NotDetected); Tricyclic Antidepressant,Urine Not Detected (NotDetected); Urn Cannabinoid Scrn Detected (NotDetected)
--- NOTE | 2023-03-19 02:12 | P.HPIM ---
History of Present Illness H&P Date: 03/18/23 Chief Complaint: intentional drug overdose 37 year old male unable to provide any meaningful history , reports hep C and unknown heart disease patient is homeless and residing at a homeless [facility] , he was recently hospitalized in the mental health unit and discharge about a week ago. he received a bottle of effexor but did not take any pills until today when he attempted suicide by ingesting the whole pill bottle with about 60 pills. he notified EMS within 30 min , in the ED poison control contacted, EKG no acute changes, patient given activated charcoal patient otherwise unable to provide any meaningful history Review of Systems ROS unobtainable: due to mental status Past Medical History Past Medical History: No Reported History, Unable to Obtain, GERD/Reflux, Hypertension, Liver Disease Additional Past Medical History / Comment(s): Hepatitis C, DDD, back pain, bilateral carpel tunnel syndrome. He reports that he has heart disease that was found when he had kidney problems but he denies having a stress test or cardiac catheterization. History of Any Multi-Drug Resistant Organisms: None Reported MDRO Source:: unknown Past Surgical History: No Surgical Hx Reported, Unable to Obtain Additional Past Surgical History / Comment(s): Pt states he has had numerous "cysts" removed from where he injected IV drugs. Past Anesthesia/Blood Transfusion Reactions: No Reported Reaction, Unable to Obtain Additional Past Anesthesia/Blood Transfusion Reaction / Comment(s): Pt states he has never had surgery. Past Psychological History: Anxiety, Depression Smoking Status: Current every day smoker Past Alcohol Use History: None Reported Past Drug Use History: Heroin, Marijuana, Methamphetamine - Past Family History Mother Family Medical History: Unable to Obtain, Rheumatoid Arthritis (RA) Additional Family Medical History / Comment(s): Mother is . Father Family Medical History: Coronary Artery Disease (CAD) Medications and Allergies Home Medications Medication Instructions Recorded Confirmed Type Acetaminophen Tab [Tylenol] 650 mg PO Q4HR PRN tab 03/13/23 03/18/23 Rx Haloperidol Decanoate [Haldol D] 200 mg IM Q14D each 03/13/23 03/18/23 Rx Mag Hydrox/Al Hydrox/Simeth 30 ml PO Q4HR PRN ml 03/13/23 03/18/23 Rx [Maalox] Magnesium Hydroxide [Milk of 2,400 mg PO DAILY PRN ml 03/13/23 03/18/23 Rx Magnesia Concentrate] Allergies Allergy/AdvReac Type Severity Reaction Status Date / Time No Known Allergies Allergy Verified 03/09/23 09:36 Physical Exam Vitals: Vital Signs Temp Pulse Resp BP Pulse Ox 03/19/23 00:30 80 19 137/98 97 03/19/23 00:00 84 18 129/80 03/18/23 23:30 90 20 136/78 03/18/23 23:14 91 18 128/90 03/18/23 23:00 91 117/63 03/18/23 22:10 89 154/93 03/18/23 22:00 85 121/84 03/18/23 21:50 82 18 121/84 99 03/18/23 21:40 83 160/95 98 03/18/23 21:30 78 110/75 97 03/18/23 21:10 84 116/68 97 03/18/23 21:04 90 143/97 03/18/23 20:25 98.2 F 91 18 143/97 97 Intake and Output 03/18/23 03/18/23 03/19/23 14:59 22:59 06:59 Other: Weight 95.254 kg Constitutional: No acute distress, sleeping arousable but drifts back to sleep , seems confused Eyes: Anicteric sclerae, moist conjunctiva, Pupils equal round reactive to light ENMT: NC/AT Oropharynx clear, no erythema, or exudates Neck: Supple, no masses, or JVD No carotid bruits No thyromegaly Lungs: Clear to auscultation Clear to percussion Normal respiratory effort, no accessory muscle use Cardiovascular: Heart regular in rate and rhythm, No murmurs, gallops, or rubs No peripheral edema Abdominal: Soft No tenderness to deep palpation no guarding, rebound or rigidity Abdomen moving with respiration Normoactive bowel sounds No hepatomegaly, No splenomegaly No palpable mass No abdominal wall hernia noted Skin: Normal temperature, tone, texture, turgor Extremities: No digital cyanosis No clubbing Pedal pulses intact and symmetrical Radial pulses intact and symmetrical No calf tenderness Psychiatric: sleepy and confused Neuro unable to cooperate with neuro exam . but moving all extremities spontaneously , opens eyes to commands, but producing in coherent speech most of the time Lymphatics: no palpable cervical or supraclavicular lymph nodes Results CBC & Chem 7: 03/18/23 20:34 04/29/23 20:34 Labs: Abnormal Lab Results - Last 24 Hours (Table) 03/18/23 03/18/23 03/18/23 Range/Units 20:34 20:34 20:34 WBC 11.3 H (3.8-10.6) k/uL Glucose 124 H (74-99) mg/dL Plasma Lactic Acid Sohail 2.9 H* (0.7-2.0) mmol/L Ur Amphetamines Screen (NotDetected) U Methamphetamines Scrn (NotDetected) Urine Cocaine Screen (NotDetected) U Marijuana (THC) Screen (NotDetected) 03/19/23 03/19/23 Range/Units 00:11 01:22 WBC (3.8-10.6) k/uL Glucose (74-99) mg/dL Plasma Lactic Acid Sohail 2.4 H* (0.7-2.0) mmol/L Ur Amphetamines Screen Detected H (NotDetected) U Methamphetamines Scrn Detected H (NotDetected) Urine Cocaine Screen Detected H (NotDetected) U Marijuana (THC) Screen Detected H (NotDetected) Assessment and Plan Assessment: 37 year old male presented with intentional drug overdose with effexor in a suicide attempt , I discussed the case with ED doc, and I accepted the admission for close monitoring with anticipated length of stay < 2 midnights intentional drug overdose suicide attempt suicide precautions IVF hydration with normal saline 100 cc per hour repeat EKG, initial was unremarkable , monitor for prolonged QT s/p activated charcoal psych eval ATIVAN PRN for agitation lactic acid 2.9 Na141, K 3.8, BUN 14, Cr 0.72 all unremarkable full code DVT PPX lovenox 40 mg sc daily
[2023-03-19] MEDS ORDERED: HEPARIN SODIUM,PORCINE/PF 5,000 UNIT/0.5 ML SYRINGE SQ SCH (08:00)
[2023-03-19] MEDS: SODIUM CHLORIDE 0.9% 1,000 ML IV SCH ×2 (08:38→19:40)
[2023-03-19] MEDS: ENOXAPARIN 40 MG/0.4 ML SYRINGE SQ SCH (08:53)
[2023-03-19 09:00] LABS: Basophils % (A) 0 %; Eosinophils # (A) 0.3 k/uL (0-0.7); Eosinophils % (A) 4 %; HCT 38.1 % (39.0-53.0); HGB 12.7 gm/dL (13.0-17.5); Lymphocytes # (A) 2.7 k/uL (1.0-4.8); Lymphocytes % (A) 39 %; MCH 28.2 pg (25.0-35.0); MCHC 33.3 g/dL (31.0-37.0); MCV 84.8 fL (80.0-100.0); Mean Platelet Volume 10.2; Monocytes # (A) 0.7 k/uL (0-1.0); Monocytes % (A) 10 %; Neutrophils # (A) 2.9 k/uL (1.3-7.7); Neutrophils % (A) 42 %; Platelet Count 200 k/uL (150-450); RBC 4.49 m/uL (4.30-5.90); RDW 13.3 % (11.5-15.5); WBC 6.9 k/uL (3.8-10.6)
[2023-03-19 09:30] LABS: ALT 18 U/L (4-49); AST 28 U/L (17-59); African American GFR (CKD) >90 (>60 ml/min/1.73 sqM); Albumin 3.4 g/dL (3.5-5.0); Alkaline Phosphatase 44 U/L (38-126); Anion Gap 9 mmol/L; Blood Urea Nitrogen 15 mg/dL (9-20); Calcium 8.5 mg/dL (8.4-10.2); Carbon Dioxide 23 mmol/L (22-30); Chloride 107 mmol/L (98-107); Glucose 89 mg/dL (74-99); Non-African American GFR(CKD) >90 (>60 ml/min/1.73 sqM); Potassium 4.4 mmol/L (3.5-5.1); Sodium 139 mmol/L (137-145); Total Bilirubin 0.3 mg/dL (0.2-1.3); Total Protein 6.5 g/dL (6.3-8.2)
[2023-03-19 10:19] LABS: Magnesium 1.8 mg/dL (1.6-2.3)
--- NOTE | 2023-03-19 14:12 | P.PN ---
Subjective Progress Note Date: 03/19/23 Hospital course: Patient is a 37-year-old male with a past medical history of hepatitis C, chronic back pain, nicotine dependence, anxiety and depression, and polysubstance abuse with heroin, methamphetamines, and marijuana. He presented to the emergency department status post intentional drug overdose. Patient resides in a homeless fci and recently was hospitalized in mental health unit and discharged approximately one week ago. Upon discharge he received a bottle of Effexor for treatment of his anxiety and depression, however patient did not take medications as prescribed patient instead save the bottle and on 03/18/23 patient states he consumed entire bottle of pills consisting of approximately 60 pills in attempts to overdose. Per ED documentation, patient reportedly notified EMS within 30 minutes of ingesting these pills and upon arrival to the emergency department, poison control was contacted and patient was given activated charcoal. Initial EKG showing normal sinus rhythm at 89 bpm with no noted T-wave or ST abnormalities showing no signs of acute ischemia and normal QT/QTC at 343/390 ms. Labs completed and reviewed. CBC showing leukocytosis with WBC count of 11.3. Coags normal findings. BMP was unremarkable. Liver enzymes also unremarkable. Initial lactate was 2.9 upon arrival, patient was given IV fluid bolus with repeat lactate decreasing to 1.4. Salicylate level negative at less than 1.0 acetaminophen level negative at less than 10.0 and EtOH level was 124. Urine drug screen was positive for amphetamines, methamphetamines, cocaine, and marijuana. Repeat EKG was completed showing normal sinus rhythm at 81 bpm with no noted T-wave or ST abnormalities and normal QT/QTC of 348/385 ms. Patient was admitted under our services with consultation to psychiatry. Repeat morning EKG was completed and again reviewed showing normal sinus rhythm at 63 bpm with again no noted T-wave or ST abnormalities showing no signs of acute ischemia and normal QT/QTC at 390/399 ms. Repeat morning labs also normal with CBC and CMP showing no signi ficant abnormalities. Medically, patient is stable for discharge to inpatient psychiatric unit and awaiting evaluation by psychiatrist at this time. Physical exam: Patient seen and fully evaluated at bedside this morning. Patient reports he took his entire bottle of Effexor in an attempt to kill himself because he is tired of being lonely. Sitter remains at bedside maintaining safety. Vital signs reviewed and stable. General: Nontoxic, no distress and appears stated age. Derm: Skin warm and dry, normal coloration for ethnicity. Head: Atraumatic, normocephalic and symmetric. Eyes: EOMs intact, no lid lag, and anicteric sclera Mouth: no lip lesions, mucus membranes moist Cardiovascular: regular rate and rhythm with normal S1S2, no murmur, positive posterior tibial pulses bilaterally, and cap refill < 2 seconds. Lungs: Respirations even, regular, and unlabored on room air. Lungs CTA bilaterally, no rhonchi, no rales, no wheezing, and no accessory muscle usage. Abdominal: soft, nontender to palpation, no guarding, no appreciable organomegaly Ext: ROM intact. No gross muscle atrophy, no edema, no contractures Neuro: Speech clear, face symmetrical and CN II-XII grossly intact with no noted focal neuro deficits Psych: Alert and oriented to person, place, time, and situation. Depressed and flat affect. Assessment and Plan of Care: Suicidal attempt via Intentional overdose on medication Polysubstance abuse with heroin, methamphetamines, and marijuana Anxiety and depression Chronic back pain Hepatitis C Nicotine dependence Lactic acidosis, resolved with IV fluid hydration -On 03/18/23 patient states he consumed entire bottle of Effexor pills consisting of approximately 60 pills in attempts to overdose. -Per ED documentation, patient reportedly notified EMS within 30 minutes of ingesting these pills and upon arrival to the emergency department, poison control was contacted and patient was given activated charcoal. -Initial EKG showing normal sinus rhythm at 89 bpm with no noted T-wave or ST abnormalities showing no signs of acute ischemia and normal QT/QTC at 343/390 ms. -Initial Labs completed and reviewed. CBC showing leukocytosis with WBC count of 11.3. Coags normal findings. BMP was unremarkable. Liver enzymes also unremarkable. Initial lactate was 2.9 upon arrival, patient was given IV fluid bolus with repeat lactate decreasing to 1.4. -Salicylate level negative at less than 1.0 acetaminophen level negative at less than 10.0 and EtOH level was 124. -Urine drug screen was positive for amphetamines, methamphetamines, cocaine, and marijuana. -Repeat EKG was completed 03/19/23 at 3:06 AM showing normal sinus rhythm at 81 bpm with no noted T-wave or ST abnormalities and normal QT/QTC of 348/385 ms. -Repeat morning EKG was completed and again reviewed showing normal sinus rhythm at 63 bpm with again no noted T-wave or ST abnormalities showing no signs of acute ischemia and normal QT/QTC at 390/399 ms. -Repeat morning labs also completed and reviewed with CBC and CMP showing no significant abnormalities. -Psychiatry consulted and awaiting evaluation. -Medically, patient is stable for discharge to inpatient psychiatric unit and awaiting evaluation by psychiatrist at this time. -Continue suicide precautions with sitter at bedside maintaining safety. CODE STATUS: Full code DVT prophylaxis: Lovenox Discussed with: Patient, sitter, and RN Anticipated discharge date: Patient is medically optimized and cleared for dis charge to inpatient psychiatric unit once evaluated by psychiatrist. Anticipated discharge place: Inpatient psychiatric unit Patient was seen independently by Nurse Pracitioner. This document was prepared using [employer] dictation software. Please allow for errors in regional marketing manager, while rare they do occur. I reviewed the documentation as provided by the ENOCH above, who is the original author of this note. I agree with the documented assessment and plan, with the following changes: none Objective - Vital Signs Vital signs: Vital Signs Temp 98.3 F 03/19/23 07:59 Pulse 82 03/19/23 07:59 Resp 18 03/19/23 07:59 BP 133/84 03/19/23 07:59 Pulse Ox 98 03/19/23 07:59 FiO2 Intake & Output 03/18/23 03/19/23 03/19/23 18:59 06:59 18:59 Weight 95.254 kg - Labs CBC & Chem 7: 03/19/23 06:39 03/19/23 06:39 Labs: Abnormal Lab Results - Last 24 Hours (Table) 03/18/23 03/18/23 03/18/23 Range/Units 20:34 20:34 20:34 WBC 11.3 H (3.8-10.6) k/uL Glucose 124 H (74-99) mg/dL Plasma Lactic Acid Sohail 2.9 H* (0.7-2.0) mmol/L Ur Amphetamines Screen (NotDetected) U Methamphetamines Scrn (NotDetected) Urine Cocaine Screen (NotDetected) U Marijuana (THC) Screen (NotDetected) 03/19/23 03/19/23 Range/Units 00:11 01:22 WBC (3.8-10.6) k/uL Glucose (74-99) mg/dL Plasma Lactic Acid Sohail 2.4 H* (0.7-2.0) mmol/L Ur Amphetamines Screen Detected H (NotDetected) U Methamphetamines Scrn Detected H (NotDetected) Urine Cocaine Screen Detected H (NotDetected) U Marijuana (THC) Screen Detected H (NotDetected)
[2023-03-19] MEDS: LORazepam 1 MG TAB PO PRN (21:36)
--- NOTE | 2023-03-20 02:11 | P.CN ---
Psychiatric Consult - . Consult date: 03/19/23 Consult:: IDENTIFYING DATA: This patient is a 37-year-old male who is single and homeless. REASON FOR REFERRAL: Psychiatry was consulted for suicide attempt by overdose. HISTORY OF PRESENT ILLNESS: The patient presented to the hospital on 03/18/23 and per ER note "Patient brought to the ED by ambulance for evaluation. Patient is homeless and states that he is currently residing in a homeless detention. Patient reports taking 60 of his Effexor pills about 30 minutes prior to coming to the ED. Patient states that there were 60 pills in the bottle, and he states that he had not taken any until he took all of them tonight. Patient states that he is unsure of the dose of the Effexor that he took. Patient states that he did not bring the pill bottle with him to the ED. Patient also admits to drinking a pint of whiskey today. Patient states that he did smoke marijuana earlier today as well, and he states that he last used methamphetamine yesterday. Patient denies any other illicit drug use or medication abuse/ove rdose. Patient states that he took these pills in a suicidal attempt. Patient states that he currently feels "groggy" and anxious. Patient denies any other suicidal attempt, trauma or injury, any pain, fever or chills, headache, focal neuro deficit, chest pain or pressure, dyspnea, palpitations, dizziness, abdominal pain, nausea/vomiting/diarrhea, or any other symptoms or complaints." On my assessment patient is deep asleep with sitter at bedside to maintain safety. He is superficially cooperative on awakening. He is disheveled with charcoal residue around his mouth from treatment for overdose in the ER. He reports he took a bottle of Effexor XR prior to presenting to the emergency room. He reports he discarded the bottle but recalls he had this medication filled at [facility]. He is drowsy and admits to recent methamphetamine use. He admits he overdosed as a suicide attempt. He reports depressed mood, increased sleep, decreased energy. He continues to endorse suicidal ideation but denies specific plan at this time. Patient denies any auditory, visual hallucinations and denies any paranoia or delusions. Patients admits to using methamphetamines. He has 2 recent admissions to the mental health unit in February 2023. He was most recently discharged on 03/13/2023 from the mental health unit on Haldol decanoate 200 mg IM every 14 days. History is limited at this time due to patient's somnolence and minimal effort on assessment, therefore most of history below is taken from chart. PAST PSYCHIATRIC HISTORY: Patient has previous diagnoses of schizoaffective disorder, depressive type, alcohol use disorder, cocaine use disorder, cannabis use disorder, methamphetamine abuse, nicotine dependence. He is currently on Haldol Decanoate 200 mg IM q2 weeks. He was previously on Seroquel, and BuSpar. He was last discharged from our psychiatric unit on 03/13/2023. PAST MEDICAL HISTORY: Past Medical History: No Reported History, Unable to Obtain, GERD/Reflux, Hypertension, Liver Disease Additional Past Medical History / Comment(s): Hepatitis C, DDD, back pain, bilateral carpel tunnel syndrome. He reports that he has heart disease that was found when he had kidney problems but he denies having a stress test or cardiac catheterization. History of Any Multi-Drug Resistant Organisms: None Reported MDRO Source:: unknown Past Surgical History: No Surgical Hx Reported, Unable to Obtain Additional Past Surgical History / Comment(s): Pt states he has had numerous "cysts" removed from where he injected IV drugs. Past Anesthesia/Blood Transfusion Reactions: No Reported Reaction, Unable to Obtain Additional Past Anesthesia/Blood Transfusion Reaction / Comment(s): Pt states he has never had surgery. Past Psychological History: Anxiety, Depression Smoking Status: Current every day smoker Past Alcohol Use History: None Reported Past Drug Use History: Heroin, Marijuana, Methamphetamine ALLERGIES: as per EMR. CHEMICAL DEPENDENCY HISTORY: as per HPI. FAMILY PSYCHIATRIC/SUBSTANCE USE HISTORY: No reported family psychiatric history SOCIAL HISTORY: Patient is currently homeless. Recently kicked out of the homeless detention. He is . He was kicked out of school after ninth grade. He has his GED. MENTAL STATUS EXAM: General Appearance: Patient appears to be stated age, disheveled with charcoal residue around mouth from treatment for overdose in ER, is somnolent, and uncooperative. Patient appears to have poor hygiene and grooming. Behavior: Patient is sleeping in bed. He awakens after calling name multiple times but is somnolent and a poor historian. Speech: Patient's speech low in volume and tone, and non-spontaneous, Mood/Affect: Patient reports their mood is depressed, affect is congruent and somnolent. Suicidality/Homicidality: He endorses SI without a specific plan at this time. He denies HI, intent or plan. Perceptions: Unable to fully assess at this time. Though content/process: Unable to fully assess at this time. Memory and concentration: Unable to fully assess at this time. Judgment and insight: Very poor IMPRESSIONS: Schizoaffective disorder, depressive type by history Methamphetamine use disorder Cannabis use disorder Alcohol use disorder Tobacco use disorder Rule out antisocial personality disorder Rule out malingering PLAN: -At this time patient DOES meet criteria for inpatient psychiatric admission. -Delirium precautions recommended with patient including - avoiding use of narcotics and DRILL RIG OPERATOR HELPER sedatives, limit anticholinergic medications when possible, frequent re-orientation, minimize use of restraints, open window shades during the day and close them at night -Would recommend the following medication changes/additions: Ativan 1 mg TID PRN for agitation. Hold for respiratory depression. Haldol decanoate 200 mg IM last dose given 03/13/23. -Continue 1:1 sitter for safety -Cannot leave AMA at this time. Patient will need a petition and certification if attempting to leave AMA. -When medically stable, patient is eligible for transfer to a psych bed when available. -Communicated plan to patient's nurse -Psychiatry will sign off at this time. -Please contact with any questions. 03/19/23 11:11 03/20/23 01:55
[2023-03-20] MEDS: SODIUM CHLORIDE 0.9% 1,000 ML IV SCH (03:37)
[2023-03-20 07:11] VITALS: BP 143/67; PULSE 68; RESP 18; TEMP 97.9
[2023-03-20] MEDS: LORazepam 1 MG TAB PO PRN ×2 (07:47→15:13)
[2023-03-20] MEDS: ENOXAPARIN 40 MG/0.4 ML SYRINGE SQ SCH (09:09)
--- NOTE | 2023-03-20 11:26 | P.DS ---
Providers Date of admission: 03/18/23 22:23 Expected date of discharge: 03/20/23 Attending physician: Maday Blair MD Consults: 03/19/23 02:13 Consult Physician Routine Consulting Provider: Gamal Ruvalcaba Consult Reason/Comments: suicide Do you want consulting provider notified?: Yes, Notify in am Primary care physician: Stated None Hospital Course: Discharge Diagnosis: Suicidal attempt via Intentional overdose on medication. Patient discharged to inpatient mental health unit. Polysubstance abuse with heroin, methamphetamines, and marijuana. Anxiety and depression Chronic back pain Hepatitis C Nicotine dependence Lactic acidosis, resolved with IV fluid hydration Hospital Course: Patient is a 37-year-old male with a past medical history of hepatitis C, chronic back pain, nicotine dependence, anxiety and depression, and polysubstance abuse with heroin, methamphetamines, and marijuana. He presented to the emergency department status post intentional drug overdose. Patient resides in a homeless longterm and recently was hospitalized in mental health unit and discharged approximately one week ago. Upon discharge he received a bottle of Effexor for treatment of his anxiety and depression, however patient did not take medications as prescribed patient instead save the bottle and on 03/18/23 patient states he consumed entire bottle of pills consisting of approximately 60 pills in attempts to overdose. Per ED documentation, patient reportedly notified EMS within 30 minutes of ingesting these pills and upon arrival to the emergency department, poison control was contacted and patient was given activated charcoal. Initial EKG showing normal sinus rhythm at 89 bpm with no noted T-wave or ST abnormalities showing no signs of acute ischemia and normal QT/QTC at 343/390 ms. Labs completed and reviewed. CBC showing leukocytosis with WBC count of 11.3. Coags normal findings. BMP was unremarkable. Liver enzymes also unremarkable. Initial lactate was 2.9 upon arrival, patient was given IV fluid bolus with repeat lactate decreasing to 1.4. Salicylate level negative at less than 1.0 acetaminophen level negative at less than 10.0 and EtOH level was 124. Urine drug screen was positive for amphetamines, methamphetamines, cocaine, and marijuana. Repeat EKG was completed showing normal sinus rhythm at 81 bpm with no noted T-wave or ST abnormalities and normal QT/QTC of 348/385 ms. Patient was admitted under our services with consultation to psychiatry. Repeat morning EKG was completed and again reviewed showing normal sinus rhythm at 63 bpm with again no noted T-wave or ST abnormalities showing no signs of acute ischemia and normal QT/QTC at 390/399 ms. Repeat morning labs also normal with CBC and CMP showing no significant abnormalities. Medically, patient is stable for discharge to inpatient psychiatric unit and has been accepted by inpatient psychiatric team. Clinical certain was completed by physician. Patient stable for discharge to mental health unit. Physical exam: Vital signs reviewed and stable. General: Nontoxic, no distress and appears stated age. Derm: Skin warm and dry, normal coloration for ethnicity. Head: Atraumatic, normocephalic and symmetric. Eyes: EOMs intact, no lid lag, and anicteric sclera Mouth: no lip lesions, mucus membranes moist Cardiovascular: regular rate and rhythm with normal S1S2, no murmur, positive posterior tibial pulses bilaterally, and cap refill < 2 seconds. Lungs: Respirations even, regular, and unlabored on room air. Lungs CTA bilaterally, no rhonchi, no rales, no wheezing, and no accessory muscle usage. Abdominal: soft, nontender to palpation, no guarding, no appreciable organomegaly Ext: ROM intact. No gross muscle atrophy, no edema, no contractures Neuro: Speech clear, face symmetrical and CN II-XII grossly intact with no noted focal neuro deficits Psych: Alert and oriented to person, place, time, and situation. Depressed and flat affect. A total of 31 minutes of time were spent preparing this complex discharge summary. Pt was discharged on 03/20/23 at 10:43 AM. Patient was seen independently by Nurse Practitioner. This document was prepared using [employer] dictation software. Please allow for errors in marketing trainee while rare they do occur. Patient Condition at Discharge: Stable Plan - Discharge Summary Discharge Rx Participant: No New Discharge Prescriptions: No Action Haloperidol Decanoate [Haldol D] 200 mg IM Q14D each Magnesium Hydroxide [Milk of Magnesia Concentrate] 2,400 mg PO DAILY PRN ml PRN Reason: Constipation Mag Hydrox/Al Hydrox/Simeth [Maalox] 30 ml PO Q4HR PRN ml PRN Reason: Gi Upset Acetaminophen Tab [Tylenol] 650 mg PO Q4HR PRN tab PRN Reason: Mild Pain/Discomfort Discharge Medication List Acetaminophen Tab [Tylenol] 650 mg PO Q4HR PRN tab 03/13/23 [Rx] Haloperidol Decanoate [Haldol D] 200 mg IM Q14D each 03/13/23 [Rx] Mag Hydrox/Al Hydrox/Simeth [Maalox] 30 ml PO Q4HR PRN ml 03/13/23 [Rx] Magnesium Hydroxide [Milk of Magnesia Concentrate] 2,400 mg PO DAILY PRN ml 03/13/23 [Rx] Follow up Appointment(s)/Referral(s): None,Stated [Primary Care Provider] - 1-2 days (Please call for appointment.) Patient Instructions/Handouts: Adult Overdose (ED) Discharge Disposition: TRANSFER TO PSYCH HOSP/UNIT
== END 2023-03-20 15:30 ==
LOC: EC 20:24 → 6NMEDSUR 22:23 → 4SSUR 03-19 03:26
PROVIDERS: ADMIT Internal Medicine; ATTEND Internal Medicine
DX: T43.212A Poisoning by selective serotonin and norepinephrine reuptake inhibitors, intentional self-harm, initial encounter (principal); F10.120 Alcohol abuse with intoxication, uncomplicated; M54.9 Dorsalgia, unspecified; G89.29 Other chronic pain; B18.2 Chronic viral hepatitis C; E87.20 Acidosis, unspecified; F25.1 Schizoaffective disorder, depressive type; F15.20 Other stimulant dependence, uncomplicated; F12.10 Cannabis abuse, uncomplicated; F41.9 Anxiety disorder, unspecified; K21.9 Gastro-esophageal reflux disease without esophagitis; I10 Essential (primary) hypertension; F17.200 Nicotine dependence, unspecified, uncomplicated; Y90.6 Blood alcohol level of 120-199 mg/100 ml; Z20.822 Contact with and (suspected) exposure to COVID-19; Z59.00 Homelessness unspecified; Z79.899 Other long term (current) drug therapy
CPT/HCPCS: 96372 ×2; 82075; 99285; 36415; 93005 ×2; 80053 ×2; 83605 ×2; 83735; 85025 ×2; 85610; 85730; 80306; 80143; 87635; 80179; G0378 ×3; G0480; J1650 ×2; 80320

== ENCOUNTER 2023-03-27 12:38 | Emergency (ER) | payer OTHER ==
[2023-03-27] MEDS ORDERED: ONDANSETRON 4 MG/2 ML VIAL IVP STA (12:59)
[2023-03-27] MEDS ORDERED: SODIUM CHLORIDE 0.9% 1,000 ML IV STA (13:00)
[2023-03-27] MEDS ORDERED: LORazepam 2 MG/ML INJ IV STA (13:09)
--- NOTE | 2023-03-27 13:18 | ED ---
Nausea/Vomiting/Diarrhea HPI - General Chief complaint: Nausea/Vomiting/Diarrhea Stated complaint: diarrhea Time Seen by Provider: 03/27/23 12:59 Source: patient, EMS, RN notes reviewed Mode of arrival: EMS Limitations: no limitations - History of Present Illness Initial comments: This is a 37-year-old male who presents to the emergency department for nausea, vomiting, and diarrhea starting 2 hours prior to arrival. Denies any sick contacts. Denies any associated fevers or abdominal pain. Denies any illicit drug or alcohol use. He is currently requesting medication for anxiety. Denies any fevers, chills, sore throat, cough, dyspnea, chest pain, palpitations, abdominal pain, back pain, or headaches. MD complaint: nausea, vomiting, diarrhea Associated Abdominal Pain: No - Related Data Home Medications Medication Instructions Recorded Confirmed Venlafaxine HCl [Effexor] 50 mg PO DIRECTED 03/27/23 03/27/23 Previous Rx's Medication Instructions Recorded Mag Hydrox/Al Hydrox/Simeth 30 ml PO Q4HR PRN ml 03/13/23 [Maalox] Magnesium Hydroxide [Milk of 2,400 mg PO DAILY PRN ml 03/13/23 Magnesia Concentrate] Haloperidol Decanoate [Haldol D] 200 mg IM Q14D 1 Days #1 each 03/24/23 Carlin Carbonate ER [Lithobid] 900 mg PO HS 7 Days #14 tab 03/24/23 Ondansetron Odt [Zofran Odt] 4 mg PO Q8HR PRN #15 tab 03/27/23 Allergies Allergy/AdvReac Type Severity Reaction Status Date / Time No Known Allergies Allergy Verified 03/27/23 17:30 Review of Systems ROS Statement: Those systems with pertinent positive or pertinent negative responses have been documented in the HPI. ROS Other: All systems not noted in ROS Statement are negative. Past Medical History Past Medical History: No Reported History, Unable to Obtain, GERD/Reflux, Hypertension, Liver Disease Additional Past Medical History / Comment(s): Hepatitis C, DDD, back pain, bilateral carpel tunnel syndrome. He reports that he has heart disease that was found when he had kidney problems but he denies having a stress test or cardiac catheterization. History of Any Multi-Drug Resistant Organisms: None Reported MDRO Source:: unknown Past Surgical History: No Surgical Hx Reported, Unable to Obtain Additional Past Surgical History / Comment(s): Pt states he has had numerous "cysts" removed from where he injected IV drugs. Past Anesthesia/Blood Transfusion Reactions: No Reported Reaction, Unable to Obtain Additional Past Anesthesia/Blood Transfusion Reaction / Comment(s): Pt states he has never had surgery. Past Psychological History: Anxiety, Bipolar, Depression Smoking Status: Current every day smoker Past Alcohol Use History: Occasional Past Drug Use History: Heroin, Marijuana, Methamphetamine - Past Family History Mother Family Medical History: Unable to Obtain, Rheumatoid Arthritis (RA) Additional Family Medical History / Comment(s): Mother is . Father Family Medical History: Coronary Artery Disease (CAD) General Exam Limitations: no limitations General appearance: alert, in no apparent distress Head exam: Present: atraumatic, normocephalic, normal inspection Respiratory exam: Present: normal lung sounds bilaterally. Absent: respiratory distress, wheezes, rales, rhonchi, stridor Cardiovascular Exam: Present: regular rate, normal rhythm, normal heart sounds. Absent: systolic murmur, diastolic murmur, rubs, gallop, clicks GI/Abdominal exam: Present: soft, normal bowel sounds. Absent: distended, tenderness, guarding, rebound, rigid Neurological exam: Present: alert, oriented X3, CN II-XII intact Psychiatric exam: Present: anxious Skin exam: Present: warm, dry, intact, normal color. Absent: rash Course Vital Signs 03/27/23 03/27/23 12:41 15:23 Pulse Rate 94 92 Respiratory 20 16 Rate Blood Pressure 136/72 O2 Sat by Pulse 96 98 Oximetry Medical Decision Making - Medical Decision Making This is a 37-year-old male who presents to the emergency department for nausea, vomiting, and diarrhea. Was pt. sent in by a medical professional or institution? @ -No Did you speak to anyone other than the patient for history? @ -No Did you review nursing and triage notes? @ -No, patient not coming from [place]. Were old charts reviewed? @ -No Differential Diagnosis? @ -Differential Nausea and Vomiting: Gastroenteritis, cholecystitis, appendicitis, pancreatitis, migraine, benign positional vertigo, food borne illness, pyelonephritis, irritable bowel syndrome, influenza, Covid, GERD, incarcerated hernia, intestinal obstruction, this is not meant to be an all-inclusive list. - What testing was considered but not performed? (CT, X-rays, U/S, labs)? Why? @ -None What meds were considered but not given? Why? @ -None Did you discuss the management of the patient with other professionals? @ -No Did you reconcile home meds? @ -No Was smoking cessation discussed for >3mins.? @ -No Was critical care preformed (if so, how long)? @ -No Were there social determinants of health that impacted care today? How? (Homelessness, low income, unemployed, alcoholism, drug addiction, transportation, low edu. Level, literacy, decrease access to med. care, senior care, rehab)? @ -Yes, the patient is homeless, decreasing access to healthcare and contributing to her overall worsening of health status. Was there de-escalation of care discussed even if they declined? (Discuss DNR or withdrawal of care, Hospice)? @ -No What co-morbidities impacted this encounter? (DM, HTN, Smoking, COPD, CAD, Cancer, CVA, Hep., AIDS, mental health diagnosis, sleep apnea, morbid obesity)? @ -Hepatitis C Was patient admitted / discharged? @ -Discharged. Lab work obtained and found to be nonactionable. Patient given IV fluids and Zofran with resolution of symptoms. Anxiety was also controlled with a dose of Ativan. Symptoms most consistent with a viral gastroenteritis. Prescription for Zofran provided with dosing instructions reviewed. He is otherwise advised to slowly advance his diet as tolerated and remain well-hyd rated. Undiagnosed new problem with uncertain prognosis? @ -None Drug Therapy requiring intensive monitoring for toxicity (Heparin, Nitro, Insul in, Cardizem)? @ -None Were any procedures done? @ -None Diagnosis/symptom? @ -Gastroenteritis Acute, or Chronic, or Acute on Chronic? @ -Acute Uncomplicated (without systemic symptoms) or Complicated (systemic symptoms)? @ -Uncomplicated Side effects of treatment? @ -None Exacerbation, Progression, or Severe Exacerbation] @ -Not applicable Poses a threat to life or bodily function? @ -No Return precautions reviewed in depth, the patient is instructed to return to the emergency department with any new, worsening, or concerning symptoms. Patient verbalized understanding. This case was discussed in detail with the attending ED physician, Dr. Armenta. Presentation, findings, and treatment plan discussed in detail as well. - Lab Data Result diagrams: 03/27/23 13:13 03/27/23 13:41 Lab Results 03/27/23 03/27/23 Range/Units 13:13 13:41 WBC 13.0 H (3.8-10.6) k/uL RBC 4.92 (4.30-5.90) m/uL Hgb 13.8 (13.0-17.5) gm/dL Hct 41.1 (39.0-53.0) % MCV 83.6 (80.0-100.0) fL MCH 28.1 (25.0-35.0) pg MCHC 33.6 (31.0-37.0) g/dL RDW 13.3 (11.5-15.5) % Plt Count 145 L (150-450) k/uL MPV 11.8 Neutrophils % 83 % Lymphocytes % 10 % Monocytes % 5 % Eosinophils % 0 % Basophils % 0 % Neutrophils # 10.7 H (1.3-7.7) k/uL Lymphocytes # 1.3 (1.0-4.8) k/uL Monocytes # 0.6 (0-1.0) k/uL Eosinophils # 0.0 (0-0.7) k/uL Basophils # 0.0 (0-0.2) k/uL Manual Slide Review Performed Sodium 136 L (137-145) mmol/L Potassium 4.0 (3.5-5.1) mmol/L Chloride 104 (98-107) mmol/L Carbon Dioxide 27 (22-30) mmol/L Anion Gap 5 mmol/L BUN 9 (9-20) mg/dL Creatinine 0.57 L (0.66-1.25) mg/dL Est GFR (CKD-EPI)AfAm >90 (>60 ml/min/1.73 sqM) Est GFR (CKD-EPI)NonAf >90 (>60 ml/min/1.73 sqM) Glucose 66 L (74-99) mg/dL Calcium 8.9 (8.4-10.2) mg/dL Total Bilirubin 0.3 (0.2-1.3) mg/dL AST 27 (17-59) U/L ALT 20 (4-49) U/L Alkaline Phosphatase 57 (38-126) U/L Total Protein 7.3 (6.3-8.2) g/dL Albumin 4.0 (3.5-5.0) g/dL Amylase 49 (30-110) U/L Lipase 53 (23-300) U/L Disposition Clinical Impression: Gastroenteritis Disposition: HOME SELF-CARE Instructions (If sedation given, give patient instructions): Gastroenteritis (ED) Additional Instructions: Return to the emergency department with any new, worsening, or concerning symptoms. Take the Zofran up to every 8 hours as needed for nausea and vomiting. Slowly advance your diet as tolerated and remain well-hydrated. Fo llow up with your primary care provider in 1-2 days. Prescriptions: Ondansetron Odt [Zofran Odt] 4 mg PO Q8HR PRN #15 tab PRN Reason: Nausea And Vomiting Is patient prescribed a controlled substance at d/c from ED?: No Referrals: None,Stated [Primary Care Provider] - 1-2 days
[2023-03-27 13:19] LABS: Basophils % (A) 0 %; Eosinophils % (A) 0 %; HCT 41.1 % (39.0-53.0); HGB 13.8 gm/dL (13.0-17.5); Lymphocytes # (A) 1.3 k/uL (1.0-4.8); Lymphocytes % (A) 10 %; MCH 28.1 pg (25.0-35.0); MCHC 33.6 g/dL (31.0-37.0); MCV 83.6 fL (80.0-100.0); Mean Platelet Volume 11.8; Monocytes # (A) 0.6 k/uL (0-1.0); Monocytes % (A) 5 %; Neutrophils # (A) 10.7 k/uL (1.3-7.7); Neutrophils % (A) 83 %; RBC 4.92 m/uL (4.30-5.90); RDW 13.3 % (11.5-15.5)
[2023-03-27 14:04] LABS: ALT 20 U/L (4-49); AST 27 U/L (17-59); African American GFR (CKD) >90 (>60 ml/min/1.73 sqM); Alkaline Phosphatase 57 U/L (38-126); Amylase 49 U/L (30-110); Anion Gap 5 mmol/L; Blood Urea Nitrogen 9 mg/dL (9-20); Calcium 8.9 mg/dL (8.4-10.2); Carbon Dioxide 27 mmol/L (22-30); Chloride 104 mmol/L (98-107); Glucose 66 mg/dL (74-99); Lipase 53 U/L (23-300); Non-African American GFR(CKD) >90 (>60 ml/min/1.73 sqM); Sodium 136 mmol/L (137-145); Total Bilirubin 0.3 mg/dL (0.2-1.3); Total Protein 7.3 g/dL (6.3-8.2)
[2023-03-27 14:11] LABS: Platelet Count 145 k/uL (150-450)
[2023-03-27] MEDS ORDERED: ALPRAZolam 1 MG TAB PO STA (14:36)
[2023-03-27] MEDS ORDERED: ONDANSETRON 4 MG ODT STARTER PACK 2 TAB BTL PO STA (14:37)
[2023-03-27 15:26] VITALS: BP 136/72; PULSE 92; RESP 16
== END 2023-03-27 15:26 | disposition home or self-care (01) ==
LOC: EC 12:38
DX: K52.9 Noninfective gastroenteritis and colitis, unspecified (principal); I10 Essential (primary) hypertension; F41.9 Anxiety disorder, unspecified; F31.9 Bipolar disorder, unspecified; F17.200 Nicotine dependence, unspecified, uncomplicated; F12.90 Cannabis use, unspecified, uncomplicated; Z79.899 Other long term (current) drug therapy
CPT/HCPCS: 36415; 80053; 82150; 83690; 85025; 99284; 96374; 96375; 96361 ×2; J2060; J2405; S0119

== ENCOUNTER 2023-03-27 15:45 | Inpatient (IN) | payer OTHER ==
--- NOTE | 2023-03-27 17:03 | ED ---
General Adult HPI - General Chief complaint: Psychiatric Symptoms Stated complaint: overdose (lithium) Time Seen by Provider: 03/27/23 16:28 Source: patient Mode of arrival: ambulatory Limitations: no limitations - History of Present Illness Initial comments: Dictation was produced using [email or web address] dictation software. please excuse any grammatical, word or spelling errors. Chief Complaint: 37-year-old male presents to the emergency department for overdose History of Present Illness: 37-year-old male presents emergency department for overdose. Patient weighs extensive psychiatric history. Patient states he took 60 that the pills at around 10 AM. Since that he's been having diarrhea and some lethargy. Patient was prescribed with the medications yesterday. According to chart review patient was given 14 tabs of 450 mg lithium. Patient otherwise has no other complaints. The ROS documented in this emergency department record has been reviewed and confirmed by me. Those systems with pertinent positive or negative responses have been documented in the HPI. All other systems are other negative and/or noncontributory. - Related Data Home Medications Medication Instructions Recorded Confirmed Venlafaxine HCl [Effexor] 50 mg PO DIRECTED 03/27/23 03/27/23 Previous Rx's Medication Instructions Recorded Mag Hydrox/Al Hydrox/Simeth 30 ml PO Q4HR PRN ml 03/13/23 [Maalox] Magnesium Hydroxide [Milk of 2,400 mg PO DAILY PRN ml 03/13/23 Magnesia Concentrate] Haloperidol Decanoate [Haldol D] 200 mg IM Q14D 1 Days #1 each 03/24/23 [place]ket Carbonate ER [Lithobid] 900 mg PO HS 7 Days #14 tab 03/24/23 Ondansetron Odt [Zofran Odt] 4 mg PO Q8HR PRN #15 tab 03/27/23 Allergies Allergy/AdvReac Type Severity Reaction Status Date / Time No Known Allergies Allergy Verified 03/27/23 17:30 Review of Systems ROS Statement: Those systems with pertinent positive or pertinent negative responses have been documented in the HPI. ROS Other: All systems not noted in ROS Statement are negative. Past Medical History Past Medical History: No Reported History, Unable to Obtain, GERD/Reflux, Hypertension, Liver Disease Additional Past Medical History / Comment(s): Hepatitis C, DDD, back pain, bilateral carpel tunnel syndrome. He reports that he has heart disease that was found when he had kidney problems but he denies having a stress test or cardiac catheterization. History of Any Multi-Drug Resistant Organisms: None Reported MDRO Source:: unknown Past Surgical History: No Surgical Hx Reported, Unable to Obtain Additional Past Surgical History / Comment(s): Pt states he has had numerous "cysts" removed from where he injected IV drugs. Past Anesthesia/Blood Transfusion Reactions: No Reported Reaction, Unable to Obtain Additional Past Anesthesia/Blood Transfusion Reaction / Comment(s): Pt states he has never had surgery. Past Psychological History: Anxiety, Bipolar, Depression Smoking Status: Current every day smoker Past Alcohol Use History: Occasional Past Drug Use History: Heroin, Marijuana, Methamphetamine - Past Family History Mother Family Medical History: Unable to Obtain, Rheumatoid Arthritis (RA) Additional Family Medical History / Comment(s): Mother is . Father Family Medical History: Coronary Artery Disease (CAD) General Exam - General Exam Comments Initial Comments: PHYSICAL EXAM: General Impression: Alert and oriented x3, mild lethargy HEENT: Normocephalic atraumatic, extra-ocular movements intact, pupils equal and reactive to light bilaterally, mucous membranes moist. Cardiovascular: Heart regular rate and rhythm Chest: Able to complete full sentences, no retractions, no tachypnea Abdomen: abdomen soft, non-tender, non-distended, no organomegaly Musculoskeletal: Pulses present and equal in all extremities, no peripheral edema Motor: no focal deficits noted Neurological: CN II-XII grossly intact, no focal motor or sensory deficits noted Skin: Intact with no visualized rashes Psych: Flat affect Limitations: no limitations Course Vital Signs 03/27/23 16:08 Temperature 97.6 F Pulse Rate 106 H Respiratory 18 Rate Blood Pressure 130/79 O2 Sat by Pulse 96 Oximetry - Reevaluation(s) Reevaluation #1: 03/27/23 18:05 Laboratory evaluation obtained. CBC, coag panel, metabolic panel is within acceptable limits. Tox lab shows lithium level 5.3. This is a critically toxic level. Case discussed with nephrology for stat hemodialysis. Case discussed with vascular surgeon for stat temporary hemodialysis catheter placement. Reevaluation #2: 03/27/23 18:[address] Champion for stat hemodialysis. Case discussed with Dr. Palma or inpatient admission. The case discussed with Dr. Escobar for ICU placement. Medical Decision Making - Medical Decision Making Was pt. sent in by a medical professional or institution (, PA, SENIOR MAJOR GIFTS OFFICER, urgent care, hospital, or alf...) When possible be specific @ -No Did you speak to anyone other than the patient for history (EMS, parent, family, police, friend...)? What history was obtained from this source @ -No Did you review nursing and triage notes (agree or disagree)? Why? @ -I reviewed and agree with nursing and triage notes Were old charts reviewed (outside hosp., previous admission, EMS record, old EKG, old radiological studies, urgent care reports/EKG's, alf records)? Report findings @ -Prior psychiatric charts were reviewed showing the patient was recently seen in the hospital prescribed lithium 14 pills of 450 mg lithium. Differential Diagnosis (chest pain, altered mental status, abdominal pain women, abdominal pain men, vaginal bleeding, musculoskeletal, weakness, fever, dyspnea, syncope, headache, dizziness, GI bleed, back pain, seizure, CVA, palpatations, mental health)? @ -Differential Mental Health: Depression, anxiety, bipolar, psychosis, schizophrenia, borderline personality, situational depression, adjustment disorder, behavioral disorder, brain tumor, malingering, substance abuse, encephalopathy, medication reaction, dementia, hypothyroidism, degenerative neurologic disorder, lupus.... This is not meant to be all-inclusive list EKG interpreted by me (3pts min.). @ -My EKG interpretation: Ventricular rate 89, sinus rhythm,. 142, QRS 92, QTC 399. No LA prolongation, no QTC prolongation, no ST or T-wave changes noted. Overall, this EKG is unremarkable X-rays interpreted by me (1pt min.). @ -None done CT interpreted by me (1pt min.). @ -None done U/S interpreted by me (1pt. min.). @ -None done What testing was considered but not performed or refused? (CT, X-rays, U/S, labs)? Why? @ -None What meds were considered but not given or refused? Why? @ -None Did you discuss the management of the patient with other professionals (professionals i.e. , PA, SENIOR MAJOR GIFTS OFFICER, lab, RT, psych nurse, social work lecturer, wrecker operator, teacher, senior major gifts officer, protective services case worker)? Give summary @ -No Was smoking cessation discussed for >3mins.? @ -No Was critical care preformed (if so, how long)? @ -yes, 73 minutes Were there social determinants of health that impacted care today? How? (Homelessness, low income, unemployed, alcoholism, drug addiction, transportation, low edu. Level, literacy, decrease access to med. care, [facility], rehab)? @ -No Was there de-escalation of care discussed even if they declined (Discuss DNR or withdrawal of care, Hospice)? DNR status @ -No What co-morbidities impacted this encounter? (DM, HTN, Smoking, COPD, CAD, Cancer, CVA, ARF, Chemo, Hep., AIDS, mental health diagnosis, sleep apnea, morbid obesity)? @ -None Was patient admitted / discharged? Hospital course, mention meds given and route, prescriptions, significant lab abnormalities, going to OR and other pertinent info. @ -37 Year-old male admitted to the hospital for lithium overdose. Patient is toxic level. Vital signs stable. No cardiac toxicity. Patient has normal intervals on his EKG. Patient be admitted to ICU. Patient will receive stat hemodialysis Undiagnosed new problem with uncertain prognosis? @ -No Drug Therapy requiring intensive monitoring for toxicity (Heparin, Nitro, Insulin, Cardizem)? @ -No Were any procedures done? @ -No Diagnosis/symptom? Acute, or Chronic, or Acute on Chronic? Uncomplicated (without systemic symptoms) or Complicated (systemic symptoms)? @ -1. Acute lithium overdose Side effects of treatment? @ -No Exacerbation, Progression, or Severe Exacerbation? @ -No Poses a threat to life or bodily function? How? (Chest pain, USA, LA, pneumonia, PE, COPD, DKA, ARF, appy, cholecystitis, CVA, Diverticulitis, Homicidal, Suicidal, threat to staff... and all critical care pts) @ -yes - Lab Data Result diagrams: 03/27/23 16:52 03/27/23 16:52 Lab Results 03/27/23 03/27/23 03/27/23 Range/Units 16:52 16:52 16:52 WBC 12.3 H (3.8-10.6) k/uL RBC 5.05 (4.30-5.90) m/uL Hgb 14.5 (13.0-17.5) gm/dL Hct 42.6 (39.0-53.0) % MCV 84.4 (80.0-100.0) fL MCH 28.7 (25.0-35.0) pg MCHC 34.0 (31.0-37.0) g/dL RDW 13.3 (11.5-15.5) % Plt Count 171 (150-450) k/uL MPV 10.1 Neutrophils % 77 % Lymphocytes % 15 % Monocytes % 6 % Eosinophils % 0 % Basophils % 0 % Neutrophils # 9.4 H (1.3-7.7) k/uL Lymphocytes # 1.8 (1.0-4.8) k/uL Monocytes # 0.7 (0-1.0) k/uL Eosinophils # 0.1 (0-0.7) k/uL Basophils # 0.0 (0-0.2) k/uL PT 10.7 (9.0-12.0) sec INR 1.0 (<1.2) APTT 23.0 (22.0-30.0) sec Sodium (137-145) mmol/L Potassium (3.5-5.1) mmol/L Chloride (98-107) mmol/L Carbon Dioxide (22-30) mmol/L Anion Gap mmol/L BUN (9-20) mg/dL Creatinine (0.66-1.25) mg/dL Est GFR (CKD-EPI)AfAm (>60 ml/min/1.73 sqM) Est GFR (CKD-EPI)NonAf (>60 ml/min/1.73 sqM) Glucose (74-99) mg/dL Osmolality (280-301) mosm/kg Plasma Lactic Acid Sohail (0.7-2.0) mmol/L Calcium (8.4-10.2) mg/dL Magnesium (1.6-2.3) mg/dL Total Bilirubin (0.2-1.3) mg/dL AST (17-59) U/L ALT (4-49) U/L Alkaline Phosphatase (38-126) U/L Total Protein (6.3-8.2) g/dL Albumin (3.5-5.0) g/dL Salicylates mg/dL Urine Opiates Screen Not Detected (NotDetected) Ur Oxycodone Screen Not Detected (NotDetected) Urine Methadone Screen Not Detected (NotDetected) Ur Propoxyphene Screen Not Detected (NotDetected) Acetaminophen ug/mL Ur Barbiturates Screen Not Detected (NotDetected) U Tricyclic Antidepress Not Detected (NotDetected) Ur Phencyclidine Scrn Not Detected (NotDetected) Ur Amphetamines Screen Not Detected (NotDetected) U Methamphetamines Scrn Not Detected (NotDetected) U Benzodiazepines Scrn Detected H (NotDetected) Burket mmol/L Urine Cocaine Screen Not Detected (NotDetected) U Marijuana (THC) Screen Detected H (NotDetected) Serum Alcohol mg/dL 03/27/23 03/27/23 Range/Units 16:52 16:52 WBC (3.8-10.6) k/uL RBC (4.30-5.90) m/uL Hgb (13.0-17.5) gm/dL Hct (39.0-53.0) % MCV (80.0-100.0) fL MCH (25.0-35.0) pg MCHC (31.0-37.0) g/dL RDW (11.5-15.5) % Plt Count (150-450) k/uL MPV Neutrophils % % Lymphocytes % % Monocytes % % Eosinophils % % Basophils % % Neutrophils # (1.3-7.7) k/uL Lymphocytes # (1.0-4.8) k/uL Monocytes # (0-1.0) k/uL Eosinophils # (0-0.7) k/uL Basophils # (0-0.2) k/uL PT (9.0-12.0) sec INR (<1.2) APTT (22.0-30.0) sec Sodium 134 L (137-145) mmol/L Potassium 4.7 (3.5-5.1) mmol/L Chloride 103 (98-107) mmol/L Carbon Dioxide 30 (22-30) mmol/L Anion Gap 1 mmol/L BUN 7 L (9-20) mg/dL Creatinine 0.65 L (0.66-1.25) mg/dL Est GFR (CKD-EPI)AfAm >90 (>60 ml/min/1.73 sqM) Est GFR (CKD-EPI)NonAf >90 (>60 ml/min/1.73 sqM) Glucose 63 L (74-99) mg/dL Osmolality 282 (280-301) mosm/kg Plasma Lactic Acid Sohail 1.3 (0.7-2.0) mmol/L Calcium 9.2 (8.4-10.2) mg/dL Magnesium 2.0 (1.6-2.3) mg/dL Total Bilirubin 0.6 (0.2-1.3) mg/dL AST 36 (17-59) U/L ALT 20 (4-49) U/L Alkaline Phosphatase 38 (38-126) U/L Total Protein 7.5 (6.3-8.2) g/dL Albumin 4.0 (3.5-5.0) g/dL Salicylates <1.0 mg/dL Urine Opiates Screen (NotDetected) Ur Oxycodone Screen (NotDetected) Urine Methadone Screen (NotDetected) Ur Propoxyphene Screen (NotDetected) Acetaminophen <10.0 ug/mL Ur Barbiturates Screen (NotDetected) U Tricyclic Antidepress (NotDetected) Ur Phencyclidine Scrn (NotDetected) Ur Amphetamines Screen (NotDetected) U Methamphetamines Scrn (NotDetected) U Benzodiazepines Scrn (NotDetected) Burket 5.3 H* mmol/L Urine Cocaine Screen (NotDetected) U Marijuana (THC) Screen (NotDetected) Serum Alcohol <10 mg/dL Disposition Clinical Impression: [place]ket overdose Disposition: ADMITTED IP TO THIS [facility] Condition: Critical Referrals: None,Stated [Primary Care Provider] - 1-2 days Decision Time: 18:48
[2023-03-27 17:04] LABS: Basophils % (A) 0 %; Eosinophils # (A) 0.1 k/uL (0-0.7); Eosinophils % (A) 0 %; HCT 42.6 % (39.0-53.0); HGB 14.5 gm/dL (13.0-17.5); Lymphocytes # (A) 1.8 k/uL (1.0-4.8); Lymphocytes % (A) 15 %; MCH 28.7 pg (25.0-35.0); MCV 84.4 fL (80.0-100.0); Mean Platelet Volume 10.1; Monocytes # (A) 0.7 k/uL (0-1.0); Monocytes % (A) 6 %; Neutrophils # (A) 9.4 k/uL (1.3-7.7); Neutrophils % (A) 77 %; Platelet Count 171 k/uL (150-450); RBC 5.05 m/uL (4.30-5.90); RDW 13.3 % (11.5-15.5); WBC 12.3 k/uL (3.8-10.6)
[2023-03-27 17:13] LABS: Prothrombin Time 10.7 sec (9.0-12.0)
[2023-03-27 17:15] LABS: ALT 20 U/L (4-49); AST 36 U/L (17-59); Acetaminophen <10.0 ug/mL; African American GFR (CKD) >90 (>60 ml/min/1.73 sqM); Alcohol <10 mg/dL; Alkaline Phosphatase 38 U/L (38-126); Anion Gap 1 mmol/L; Blood Urea Nitrogen 7 mg/dL (9-20); Calcium 9.2 mg/dL (8.4-10.2); Carbon Dioxide 30 mmol/L (22-30); Chloride 103 mmol/L (98-107); Glucose 63 mg/dL (74-99); Non-African American GFR(CKD) >90 (>60 ml/min/1.73 sqM); Salicylate <1.0 mg/dL; Sodium 134 mmol/L (137-145); Total Bilirubin 0.6 mg/dL (0.2-1.3); Total Protein 7.5 g/dL (6.3-8.2)
[2023-03-27 17:18] LABS: Potassium 4.7 mmol/L (3.5-5.1)
[2023-03-27 17:36] LABS: Amphetamine Screen,Urine Not Detected (NotDetected); Barbiturate Screen,Urine Not Detected (NotDetected); Benzodiazepines Screen,Urine Detected (NotDetected); Cocaine Screen,Urine Not Detected (NotDetected); Methadone Screen, Urine Not Detected (NotDetected); Opiate Screen,Urine Not Detected (NotDetected); Oxycodone Screen, Urine Not Detected (NotDetected); Phencyclidine Screen,Urine Not Detected (NotDetected); Tricyclic Antidepressant,Urine Not Detected (NotDetected); Urn Cannabinoid Scrn Detected (NotDetected)
[2023-03-27 17:45] LABS: Lithium 5.3 mmol/L
[2023-03-27] MEDS ORDERED: DEXTROSE 50% SYRINGE 50 ML IVP STA (17:58)
[2023-03-27] MEDS ORDERED: SODIUM CHLORIDE 0.9% 1,000 ML IV STA ×2 (18:02)
[2023-03-27] MEDS ORDERED: NALOXONE 0.4 MG/ML 1 ML VIAL IV PRN (18:45)
[2023-03-27 20:01] LABS: Glucose,Whole Blood 68 mg/dL (70-110)
[2023-03-27 20:13] LABS: Glucose,Whole Blood 91 mg/dL (70-110)
[2023-03-27] MEDS ORDERED: HEPARIN SODIUM 1,000 UN/ML (10ML VL) MISCELLANE ONE (22:28)
[2023-03-28 00:07] LABS: Glucose,Whole Blood 80 mg/dL (70-110)
[2023-03-28] MEDS: SODIUM CHLORIDE 0.9% 1,000 ML IV SCH ×4 (00:35→20:46)
--- NOTE | 2023-03-28 01:05 | P.CNPUL ---
History of Present Illness Consult date: 03/28/23 Requesting physician: Moe Ellington Reason for consult: other (ICU management) Chief complaint: Ha[place] overdose History of present illness: I am seeing this patient in new consultation today 03/28/2023 in the intensive care unit after an intentional lithium overdose. Patient is a 37-year-old male with a significant past medical history of depression and previous suicide attempts, polysubstance abuse (including heroin, methamphetamines, cocaine, marijuana) requiring previous intubation and mechanical ventilator support, hepatitis C, schizoaffective disorder, alcohol abuse, and chronic tobacco use. Patient was recently discharged from [facility] on 03/24/2023 due to an intentional suicide attempt with Effexor. He was discharged with 14 tablets of 900 mg lithium carbonate extended release and 7 tablets of 50 mg Effexor. Patient reportedly took the entire bottle of lithium. He states that he feels there were more than 14 tablets. He denies taking any other medications. He came to the emergency room yesterday evening after experiencing severe diarrhea. [place]un level was 5.3 on arrival. Urine tox screen was positive for benzodiazepines and marijuana. Serum alcohol was less than 10. Poison control was contacted in the emergency room. Patient is currently lying in bed, on room air, fairly comfortable. He is still reporting suicidal ideation, and a suicide sitter is at the bedside. He is currently alert and oriented 3. He is still experiencing frequent bouts of liquid diarrhea, polyuria, and a slight generalized tremor. Hemodialysis access was obtained in the emergency room, and the patient is currently receiving hemodialysis. Normal saline is infusing at 200 ML's per hour. He has had a total of 2.1 L of urine output over last 4 hours. No cardiac conduction abnormalities noted. CBC shows a WBC count of 12.3, hemoglobin 14.5, hematocrit 42.6, platelets 171. BMP shows a sodium 134, potassium 4.7, chloride 103, serum CO2 30, BUN 7, creatinine 0.65, glucose 63. Blood glucose level has come up to 80 mg/dl. Vital signs are stable at this time. Review of Systems REVIEW OF SYSTEMS: CONSTITUTIONAL: Denies any recent significant weight loss or weight gain. EYES: Denies change in vision. EARS, NOSE, MOUTH, THROAT: Denies headaches, denies sore throat. CARDIOVASCULAR: Denies chest pain, palpitations or syncopal episodes. RESPIRATORY: Denies shortness of breath, cough, congestion or hemoptysis. GASTROINTESTINAL: Denies change in appetite, abdominal pain, nausea and vomiting. Admits to frequent bouts of diarrhea GENITOURINARY: Denies hematuria, denies infections. MUSKULOSKELETAL: Denies pain, denies swelling. INTEGUMENTARY: Denies rash, denies eczema. NEUROLOGICAL: Denies recent memory loss, no recent seizure activity. PSYCHIATRIC: Patient is still admitting to suicidal ideation. HEMATOLOGIC/LYMPHATIC: Denies anemia, denies enlarged lymph node Past Medical History Past Medical History: No Reported History, Unable to Obtain, GERD/Reflux, Hype rtension, Liver Disease Additional Past Medical History / Comment(s): Hepatitis C, DDD, back pain, bilateral carpel tunnel syndrome. He reports that he has heart disease that was found when he had kidney problems but he denies having a stress test or cardiac catheterization. History of Any Multi-Drug Resistant Organisms: None Reported MDRO Source:: unknown Past Surgical History: No Surgical Hx Reported, Unable to Obtain Additional Past Surgical History / Comment(s): Pt states he has had numerous "cysts" removed from where he injected IV drugs. Past Anesthesia/Blood Transfusion Reactions: No Reported Reaction, Unable to Obtain Additional Past Anesthesia/Blood Transfusion Reaction / Comment(s): Pt states he has never had surgery. Past Psychological History: Anxiety, Bipolar, Depression Additional Psychological History / Comment(s): He has had multiple [facility] admissions. Smoking Status: Current every day smoker Past Alcohol Use History: Occasional Additional Past Alcohol Use History / Comment(s): Pt started smoking in 1994 and smokes 1ppd Past Drug Use History: Heroin, Marijuana, Methamphetamine Additional Drug Use History / Comment(s): Pt states he has used drugs in the past but none recently d/t no money. 12/15/21 UDS +marijuana. Denies using drugs this admission but has has meth, amph, and marajuana in his drug screen 03-09-23. - Past Family History Mother Family Medical History: Unable to Obtain, Rheumatoid Arthritis (RA) Additional Family Medical History / Comment(s): Mother is . Father Family Medical History: Coronary Artery Disease (CAD) Medications and Allergies Home Medications Medication Instructions Recorded Confirmed Type Mag Hydrox/Al Hydrox/Simeth 30 ml PO Q4HR PRN ml 03/13/23 03/27/23 Rx [Maalox] Magnesium Hydroxide [Milk of 2,400 mg PO DAILY PRN ml 03/13/23 03/27/23 Rx Magnesia Concentrate] Haloperidol Decanoate [Haldol D] 200 mg IM Q14D 1 Days #1 each 03/24/23 03/27/23 Rx [place] Carbonate ER [Lithobid] 900 mg PO HS 7 Days #14 tab 03/24/23 03/27/23 Rx Ondansetron Odt [Zofran Odt] 4 mg PO Q8HR PRN #15 tab 03/27/23 03/27/23 Rx Venlafaxine HCl [Effexor] 50 mg PO DIRECTED 03/27/23 03/27/23 History Allergies Allergy/AdvReac Type Severity Reaction Status Date / Time No Known Allergies Allergy Verified 03/27/23 17:30 Physical Exam Vitals: Vital Signs Temp Pulse Pulse Resp BP BP Pulse Ox 03/27/23 23:00 92 6 L 139/83 96 03/27/23 22:30 81 19 132/83 97 03/27/23 22:00 77 20 124/67 96 03/27/23 21:30 97 18 128/75 95 03/27/23 21:00 83 23 142/113 94 L 03/27/23 20:30 97.8 F 93 19 144/74 96 03/27/23 20:12 94 21 97 03/27/23 20:00 88 22 112/71 100 03/27/23 19:50 92 22 110/72 99 03/27/23 19:40 89 22 130/61 100 03/27/23 19:30 98 22 133/68 99 03/27/23 19:20 102 H 22 104/87 98 03/27/23 19:14 97.8 F 101 H 83 18 90/75 144/74 97 03/27/23 16:08 97.6 F 106 H 18 130/79 96 Intake and Output 03/27/23 03/27/23 03/28/23 14:59 22:59 06:59 Intake Total 940 200 Output Total 900 600 Balance 40 -400 Intake: IV 400 200 Sodium Chloride 0.9% 1, 400 200 000 ml @ 200 mls/hr IV . Q5H STA Rx#:[id number] Oral 540 Output: Urine 900 600 Other: Voiding Method Urinal Weight 95.254 kg GENERAL EXAM: Alert, 37-year-old white male, fairly comfortable in no apparent distress. There is a slight generalized tremor HEAD: Normocephalic and atraumatic EYES: Normal reaction of pupils, equal size. NOSE: Clear with pink turbinates. THROAT: No erythema or exudates. NECK: No masses, no JVD. CHEST: No chest wall deformity. LUNGS: Equal air entry with no crackles, wheeze, rhonchi or dullness. On room air. No conversational dyspnea or accessory muscle use.. CVS: S1 and S2 normal with no audible murmur, regular rhythm. No extra heart sounds ABDOMEN: No hepatosplenomegaly, hyperactive bowel sounds, no guarding or rigidity. SPINE: No scoliosis or deformity SKIN: No rashes CENTRAL NERVOUS SYSTEM: No focal deficits, tone is normal in all 4 extremities. EXTREMITIES: There is no peripheral edema, clubbing, or cyanosis. Peripheral pulses are intact. There is a right femoral hemodialysis catheter in place. Results - Laboratory Findings CBC and BMP: 03/28/23 05:30 03/28/23 05:30 PT/INR, D-dimer PT 10.7 sec (9.0-12.0) 03/27/23 16:52 INR 1.0 (<1.2) 03/27/23 16:52 Abnormal lab findings: Abnormal Labs 03/27/23 03/27/23 03/27/23 16:52 16:52 16:52 WBC 12.3 H Neutrophils # 9.4 H Sodium 134 L BUN 7 L Creatinine 0.65 L Glucose 63 L POC Glucose (mg/dL) U Benzodiazepines Scrn Detected H [place] 5.3 H* U Marijuana (THC) Screen Detected H 03/27/23 20:00 WBC Neutrophils # Sodium BUN Creatinine Glucose POC Glucose (mg/dL) 68 L U Benzodiazepines Scrn [place] U Marijuana (THC) Screen Assessment and Plan Assessment: Intentional suicide attempt with lithium, 14 tablets of 900 mg extended release. [place] level was 5.3 on arrival. Poison control was contacted in the emergency room. Patient is currently undergoing hemodialysis. 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 Urine tox screen was positive for benzodiazepines and marijuana on this admission History of schizoaffective disorder History of alcohol abuse, serum alcohol level less than 10 on this admission History of hepatitis C Hypoglycemia Chronic and ongoing nicotine dependence Homelessness Plan: Patient's medications and labs were reviewed Currently undergoing hemodialysis, and will repeat lithium level in the morning Nephrology is on the case Continue with fluid resuscitation, patient continues to experience frequent bouts of diarrhea and polyuria Suicide precautions, patient is still reporting suicidal ideation Consult psychiatry Accu-Cheks every 6 hours Repeat labs including electrolytes in the morning Patient will continue to be monitored in the intensive care unit overnight I have personally seen and examined the patient, performed the documentation and the assessment and plan as written. Number of minutes spent on the visit:20 This is a joint evaluation that was done along with the nurse practitioner. The patient came in with intentional drug overdose. He was intoxicated with lithium and the level was elevated at 5.3 and a admission. He has had previous suicidal attempts and this was an intentional suicide attempt. The patient presented to us with altered mentation. He had increased urine output related to drug induced diabetes insipidus. He was resuscitated IV fluids. He received a session of hemodialysis yesterday and the lithium level is down to 2.5. This morning, he is awake and alert. Is communicating. Cardiac rhythm is sinus and the patient is hemodynamically stable. He had minutes on this intentional drug overdose/suicidal attempt. He is homeless. He admits that he wants to and his life. He doesn't have any further planning for suicide at this point ovaries obviously suicidal. Psychiatric will be consulted. I do not see the need for any further dialysis. I'm going to discuss the case with nephrology and possibly remove the dialysis catheter today. I'm also going to reduce the IV fluids to 100 mL an hour. We'll consult psychiatry. A sitter is at the bedside. We'll continue to follow. Critical care evaluation, > 30 min. The patient is quite anxious. Will given Xanax 1 mg every 8 hours. Time with Patient: Greater than 30
[2023-03-28] MEDS: MELATONIN 5 MG TABLET PO SCH ×2 (01:34→20:45)
--- NOTE | 2023-03-28 01:53 | OP ---
OPERATIVE REPORT DATE OF SERVICE : PREOPERATIVE DIAGNOSIS: Acute chronic renal failure. POSTOPERATIVE DIAGNOSIS: Acute chronic renal failure. PROCEDURE PERFORMED: Ultrasound-guided dialysis catheter placed, right femoral approach. DESCRIPTION OF PROCEDURE: The patient was seen in the emergency room. Right groin was prepped and drapes were applied in a sterile manner. 1% lidocaine plain were infiltrated in the right groin area. Ultrasound-guided micropuncture needle was introduced to the right femoral vein. Micropuncture guidewire was passed and 4-Upper Sorbian dilator was advanced on top of the guidewire. After that, we passed a regular guidewire without any resistance. The dilator was advanced on the top of the guidewire. Then, a dialysis catheter was advanced on the top of the guidewire, secured with 3-0 nylon. Dressing applied. The patient tolerated the procedure well. MMODL / IJN: [id number] /
--- NOTE | 2023-03-28 03:20 | P.HPIM ---
History of Present Illness H&P Date: 03/27/23 Chief Complaint: intentional drug overdose 37 year old male with schizoaffective, depressive disorder, chronic low back pain patient coming in for help due to lethargy and recurrent diarrhea. This is all started after intentional overdosing on his medications. he was discharged couple days ago from the mental health unit (he was admitted for intentional suicidal attempt on drug overdose), discharge papers, indicates he was discharged with Republic 900 mg pills #14 . however, patient claims that he took the whole bottle , and it had 60 pills. in the ED he was evaluated, no reported seizures, patient was agitated, nauseated and complaining of frequent diarrhea. no GI bleeding . Republic level was found to be 5.2, nephrology notified for emergent hemodialysis Review of Systems Pertinent positives as noted in HPI. All other systems were reviewed and are negative Past Medical History Past Medical History: No Reported History, Unable to Obtain, GERD/Reflux, Hypertension, Liver Disease Additional Past Medical History / Comment(s): Hepatitis C, DDD, back pain, bilat eral carpel tunnel syndrome. He reports that he has heart disease that was found when he had kidney problems but he denies having a stress test or cardiac catheterization. History of Any Multi-Drug Resistant Organisms: None Reported MDRO Source:: unknown Past Surgical History: No Surgical Hx Reported, Unable to Obtain Additional Past Surgical History / Comment(s): Pt states he has had numerous "cy sts" removed from where he injected IV drugs. Past Anesthesia/Blood Transfusion Reactions: No Reported Reaction, Unable to Obtain Additional Past Anesthesia/Blood Transfusion Reaction / Comment(s): Pt states he has never had surgery. Past Psychological History: Anxiety, Bipolar, Depression Additional Psychological History / Comment(s): He has had multiple [facility] mental health admissions. Smoking Status: Current every day smoker Past Alcohol Use History: Occasional Additional Past Alcohol Use History / Comment(s): Pt started smoking in 1994 and smokes 1ppd Past Drug Use History: Heroin, Marijuana, Methamphetamine Additional Drug Use History / Comment(s): Pt states he has used drugs in the past but none recently d/t no money. 12/15/21 UDS +marijuana. Denies using drug s this admission but has has meth, amph, and marajuana in his drug screen 03-09-23. - Past Family History Mother Family Medical History: Unable to Obtain, Rheumatoid Arthritis (RA) Additional Family Medical History / Comment(s): Mother is . Father Family Medical History: Coronary Artery Disease (CAD) Medications and Allergies Home Medications Medication Instructions Recorded Confirmed Type Mag Hydrox/Al Hydrox/Simeth 30 ml PO Q4HR PRN ml 03/13/23 03/27/23 Rx [Maalox] Magnesium Hydroxide [Milk of 2,400 mg PO DAILY PRN ml 03/13/23 03/27/23 Rx Magnesia Concentrate] Haloperidol Decanoate [Haldol D] 200 mg IM Q14D 1 Days #1 each 03/24/23 03/27/23 Rx [place] Carbonate ER [Lithobid] 900 mg PO HS 7 Days #14 tab 03/24/23 03/27/23 Rx Ondansetron Odt [Zofran Odt] 4 mg PO Q8HR PRN #15 tab 03/27/23 03/27/23 Rx Venlafaxine HCl [Effexor] 50 mg PO DIRECTED 03/27/23 03/27/23 History Allergies Allergy/AdvReac Type Severity Reaction Status Date / Time No Known Allergies Allergy Verified 03/27/23 17:30 Physical Exam Vitals: Vital Signs Temp Pulse Pulse Pulse Resp BP BP 03/28/23 02:00 80 23 153/85 03/28/23 01:30 79 19 03/28/23 01:07 98.1 F 88 88 27 H 130/69 03/28/23 01:00 105 H 18 125/64 03/28/23 00:30 88 24 132/101 03/28/23 00:00 98.1 F 89 18 125/80 03/27/23 23:30 84 22 137/73 03/27/23 23:00 92 18 139/83 03/27/23 22:30 81 19 132/83 03/27/23 22:00 77 20 124/67 03/27/23 21:30 97 18 128/75 03/27/23 21:00 83 23 142/113 03/27/23 20:30 97.8 F 93 19 144/74 03/27/23 20:12 94 21 03/27/23 20:00 88 22 112/71 03/27/23 19:50 92 22 110/72 03/27/23 19:40 89 22 130/61 03/27/23 19:30 98 22 133/68 03/27/23 19:20 102 H 22 104/87 03/27/23 19:14 97.8 F 101 H 83 18 90/75 144/74 03/27/23 16:08 97.6 F 106 H 18 130/79 Pulse Ox 03/28/23 02:00 97 03/28/23 01:30 95 03/28/23 01:07 03/28/23 01:00 94 L 03/28/23 00:30 94 L 03/28/23 00:00 95 03/27/23 23:30 94 L 03/27/23 23:00 96 03/27/23 22:30 97 03/27/23 22:00 96 03/27/23 21:30 95 03/27/23 21:00 94 L 03/27/23 20:30 96 03/27/23 20:12 97 03/27/23 20:00 100 03/27/23 19:50 99 03/27/23 19:40 100 03/27/23 19:30 99 03/27/23 19:20 98 03/27/23 19:14 97 03/27/23 16:08 96 Intake and Output 03/27/23 03/27/23 03/28/23 14:59 22:59 06:59 Intake Total 940 2000 Output Total 900 0 Balance 40 -50 Intake: IV 400 800 Sodium Chloride 0.9% 1, 400 800 000 ml @ 200 mls/hr IV . Q5H STA Rx#:[id number] Oral 540 Hemodialysis 1200 Output: Urine 900 2050 Hemodialysis 0 Other: Voiding Method Urinal Urinal Weight 95.254 kg 99.6 kg Constitutional: patient seems restless and slightly agitated. Eyes: Anicteric sclerae, moist conjunctiva, Pupils equal round reactive to light ENMT: NC/AT Oropharynx clear, no erythema, or exudates Neck: Supple, no masses, or JVD No carotid bruits No thyromegaly Lungs: Clear to auscultation Clear to percussion Normal respiratory effort, no accessory muscle use Cardiovascular: Heart regular in rate and rhythm, No murmurs, gallops, or rubs No peripheral edema Abdominal: Soft Nontender, no guarding, rebound or rigidity Abdomen moving with respiration Normoactive bowel sounds No hepatomegaly, No splenomegaly No palpable mass No abdominal wall hernia noted Extremities: No digital cyanosis No clubbing Pedal pulses intact and symmetrical Radial pulses intact and symmetrical No calf tenderness Psychiatric: Alert and oriented to person, place Neuro tremors, moving all extremities , Muscles Strength 5/5 in all 4 extremities Sensation to light touch grossly present throughout Cranial nerves II-XII grossly intact Lymphatics: no palpable cervical or supraclavicular lymph nodes Results CBC & Chem 7: 03/27/23 16:52 03/27/23 16:52 Labs: Abnormal Lab Results - Last 24 Hours (Table) 03/27/23 03/27/23 03/27/23 Range/Units 16:52 16:52 16:52 WBC 12.3 H (3.8-10.6) k/uL Neutrophils # 9.4 H (1.3-7.7) k/uL Sodium 134 L (137-145) mmol/L BUN 7 L (9-20) mg/dL Creatinine 0.65 L (0.66-1.25) mg/dL Glucose 63 L (74-99) mg/dL POC Glucose (mg/dL) (70-110) mg/dL U Benzodiazepines Scrn Detected H (NotDetected) [place] 5.3 H* mmol/L U Marijuana (THC) Screen Detected H (NotDetected) 03/27/23 Range/Units 20:00 WBC (3.8-10.6) k/uL Neutrophils # (1.3-7.7) k/uL Sodium (137-145) mmol/L BUN (9-20) mg/dL Creatinine (0.66-1.25) mg/dL Glucose (74-99) mg/dL POC Glucose (mg/dL) 68 L (70-110) mg/dL U Benzodiazepines Scrn (NotDetected) Republic mmol/L U Marijuana (THC) Screen (NotDetected) Thrombosis Risk Factor Assmnt - Choose All That Apply Any of the Below Risk Factors Present?: No Other Risk Factors: No Other congenital or acquired thrombophilia - If yes, enter type in comment: No Thrombosis Risk Factor Assessment Level: Very Low Risk Assessment and Plan Assessment: 37 year old male schizoaffective disorder, suicidal ideations, presented after intentional ingestion of LIthium in a suicide attempt, I discussed the case with ED doc, patient lithium level was 5. 2 I accepted the admission for emergent hemodialysis and close monitoring in the ICU with anticipated length of stay > 2 midnights intentional drug overdose in a suicide attempt on [place] with severe toxicity lithium level 5.2 frequent diarrhea supportive care emergent hemodialysis aggressive IV fluid hydration with normal saline , target urine output of 3cc /kg per hour nephro consult ICU care neuro checks seizure precautions psych eval bed side sitter for safety Urine drug screen positive for benzo and marijuana , alcohol level <10 blood work reviewed , showed WBC 12.3 , Hgb 14.5 , leukocytosis most likely reactive , no suspected focus of infection Na 134, K 4.7, BUN 7, cr 0.6 unremarkable renal function full code DVT PPX heparin sc 5000 units bid
[2023-03-28] MEDS: ACETAMINOPHEN TAB 325 MG TAB PO PRN (04:30)
[2023-03-28 06:20] LABS: Basophils % (A) 0 %; Eosinophils # (A) 0.2 k/uL (0-0.7); Eosinophils % (A) 3 %; HCT 39.5 % (39.0-53.0); HGB 12.8 gm/dL (13.0-17.5); Lymphocytes # (A) 1.2 k/uL (1.0-4.8); Lymphocytes % (A) 14 %; MCH 28.9 pg (25.0-35.0); MCHC 32.4 g/dL (31.0-37.0); Mean Platelet Volume 9.9; Monocytes # (A) 0.6 k/uL (0-1.0); Monocytes % (A) 6 %; Neutrophils # (A) 6.9 k/uL (1.3-7.7); Neutrophils % (A) 75 %; Platelet Count 128 k/uL (150-450); RBC 4.44 m/uL (4.30-5.90); RDW 13.2 % (11.5-15.5); WBC 9.1 k/uL (3.8-10.6)
[2023-03-28 06:27] LABS: African American GFR (CKD) >90 (>60 ml/min/1.73 sqM); Anion Gap 5 mmol/L; Blood Urea Nitrogen 4 mg/dL (9-20); Calcium 8.5 mg/dL (8.4-10.2); Carbon Dioxide 22 mmol/L (22-30); Chloride 109 mmol/L (98-107); Glucose 122 mg/dL (74-99); Magnesium 1.9 mg/dL (1.6-2.3); Non-African American GFR(CKD) >90 (>60 ml/min/1.73 sqM); Phosphorus 2.1 mg/dL (2.5-4.5); Potassium 3.2 mmol/L (3.5-5.1); Sodium 136 mmol/L (137-145)
[2023-03-28 06:30] LABS: Lithium 2.5 mmol/L
[2023-03-28] MEDS ORDERED: Potassium Replacement Protocol 1 EACH MISC MISCELLANE PRN ×2 (06:35→14:53)
[2023-03-28] MEDS: HEPARIN SODIUM,PORCINE/PF 5,000 UNIT/0.5 ML SYRINGE SQ SCH ×2 (07:38→20:46)
[2023-03-28] MEDS ORDERED: diazePAM 2 MG TAB PO PRN (08:30)
[2023-03-28] MEDS: ALPRAZolam 1 MG TAB PO SCH ×3 (08:57→20:45)
[2023-03-28] MEDS ORDERED: PANTOPRAZOLE 40 MG/10 ML VIAL IV SCH (09:00)
[2023-03-28] MEDS ORDERED: ALPRAZolam 1 MG TAB PO STA (09:25)
--- NOTE | 2023-03-28 11:38 | P.NPCON ---
History of Present Illness - History of Present Illness patient is a 37-year-old male with history of bipolar disorder admitted to the hospital with attempted suicide. Patient apparently took a whole bottle of lithium which contained 14 tablets. Patient was recently discharged from inpatient psych on 03/24/2003 after an admission for another suicide attempt with Effexor. In the ER patient was noted to be sleepy with a lithium level of 5.3. Patient received emergent hemodialysis last night. [place] level is down to 2.5 this morning. Patient has been hemodynamically stable. Maintained on IV fluids at 200 mL an hour. serum creatinine was 0.65 patient is seen in the ICU today. He is comfortable not in any acute distress. Sitter is present at bedside. Review of Systems as per HPI, other systems negative Past Medical History Past Medical History: No Reported History, Unable to Obtain, GERD/Reflux, Hypertension, Liver Disease Additional Past Medical History / Comment(s): Hepatitis C, DDD, back pain, bilateral carpel tunnel syndrome. He reports that he has heart disease that was found when he had kidney problems but he denies having a stress test or cardiac catheterization. History of Any Multi-Drug Resistant Organisms: None Reported MDRO Source:: unknown Past Surgical History: No Surgical Hx Reported, Unable to Obtain Additional Past Surgical History / Comment(s): Pt states he has had numerous "cysts" removed from where he injected IV drugs. Past Anesthesia/Blood Transfusion Reactions: No Reported Reaction, Unable to Obtain Additional Past Anesthesia/Blood Transfusion Reaction / Comment(s): Pt states he has never had surgery. Past Psychological History: Anxiety, Bipolar, Depression Additional Psychological History / Comment(s): He has had multiple [facility] mental health admissions. Smoking Status: Current every day smoker Past Alcohol Use History: Occasional Additional Past Alcohol Use History / Comment(s): Pt started smoking in 1994 and smokes 1ppd Past Drug Use History: Heroin, Marijuana, Methamphetamine Additional Drug Use History / Comment(s): Pt states he has used drugs in the past but none recently d/t no money. 12/15/21 UDS +marijuana. Denies using drugs this admission but has has meth, amph, and marajuana in his drug screen 03-09-23. - Past Family History Mother Family Medical History: Unable to Obtain, Rheumatoid Arthritis (RA) Additional Family Medical History / Comment(s): Mother is . Father Family Medical History: Coronary Artery Disease (CAD) Medications and Allergies Home Medications Medication Instructions Recorded Confirmed Type Mag Hydrox/Al Hydrox/Simeth 30 ml PO Q4HR PRN ml 03/13/23 03/27/23 Rx [Maalox] Magnesium Hydroxide [Milk of 2,400 mg PO DAILY PRN ml 03/13/23 03/27/23 Rx Magnesia Concentrate] Haloperidol Decanoate [Haldol D] 200 mg IM Q14D 1 Days #1 each 03/24/23 03/27/23 Rx [place] Carbonate ER [Lithobid] 900 mg PO HS 7 Days #14 tab 03/24/23 03/27/23 Rx Ondansetron Odt [Zofran Odt] 4 mg PO Q8HR PRN #15 tab 03/27/23 03/27/23 Rx Venlafaxine HCl [Effexor] 50 mg PO DIRECTED 03/27/23 03/27/23 History Allergies Allergy/AdvReac Type Severity Reaction Status Date / Time No Known Allergies Allergy Verified 03/27/23 17:30 Physical Exam Vitals: Vital Signs Temp Pulse Pulse Pulse Resp BP BP 03/28/23 10:30 93 138/98 03/28/23 10:15 88 12 138/98 03/28/23 09:00 101 H 25 H 103/83 03/28/23 07:55 98.4 F 79 16 122/81 03/28/23 07:00 89 13 107/65 03/28/23 06:00 71 14 98/59 03/28/23 05:00 98.0 F 85 23 127/80 03/28/23 04:00 72 24 117/69 03/28/23 03:00 65 20 127/97 03/28/23 02:00 80 23 153/85 03/28/23 01:30 79 19 03/28/23 01:07 98.1 F 88 88 27 H 130/69 03/28/23 01:00 105 H 18 125/64 03/28/23 00:30 88 24 132/101 03/28/23 00:00 98.1 F 89 18 125/80 03/27/23 23:30 84 22 137/73 03/27/23 23:00 92 18 139/83 03/27/23 22:30 81 19 132/83 03/27/23 22:00 77 20 124/67 05/08/23 21:30 97 18 128/75 03/27/23 21:00 83 23 142/113 03/27/23 20:30 97.8 F 93 19 144/74 03/27/23 20:12 94 21 03/27/23 20:00 88 22 112/71 03/27/23 19:50 92 22 110/72 03/27/23 19:40 89 22 130/61 03/27/23 19:30 98 22 133/68 03/27/23 19:20 102 H 22 104/87 03/27/23 19:14 97.8 F 101 H 83 18 90/75 144/74 03/27/23 16:08 97.6 F 106 H 18 130/79 Pulse Ox 03/28/23 10:30 03/28/23 10:15 96 03/28/23 09:00 96 03/28/23 07:55 95 03/28/23 07:00 95 03/28/23 06:00 94 L 03/28/23 05:00 94 L 03/28/23 04:00 93 L 03/28/23 03:00 98 03/28/23 02:00 97 03/28/23 01:30 95 03/28/23 01:07 03/28/23 01:00 94 L 03/28/23 00:30 94 L 03/28/23 00:00 95 03/27/23 23:30 94 L 03/27/23 23:00 96 03/27/23 22:30 97 03/27/23 22:00 96 03/27/23 21:30 95 03/27/23 21:00 94 L 03/27/23 20:30 96 03/27/23 20:12 97 03/27/23 20:00 100 03/27/23 19:50 99 03/27/23 19:40 100 03/27/23 19:30 99 03/27/23 19:20 98 03/27/23 19:14 97 03/27/23 16:08 96 Intake and Output 03/27/23 03/28/23 03/28/23 22:59 06:59 14:59 Intake Total 940 4080 600 Output Total 900 2950 800 Balance 40 1130 -200 Intake: IV 400 1800 600 Sodium Chloride 0.9% 1, 400 1800 600 000 ml @ 200 mls/hr IV . Q5H STA Rx#:[id number] Oral 540 1080 Hemodialysis 1200 Output: Urine 900 2950 800 Hemodialysis 0 Other: Voiding Method Urinal Urinal Urinal # Bowel Movements 2 1 2 Weight 95.254 kg 99.6 kg sleeping but arousable. No acute distress Examination of the lungs S1 and S2 Examination of the lower extremities shows no evidence of edema SCIENTIFIC TECHNICAL WRITER exam shows patient is moving all 4 extremities Results - Lab Results Most recent lab results Calcium 8.5 mg/dL (8.4-10.2) 03/28/23 05:30 Phosphorus 2.1 mg/dL (2.5-4.5) L 03/28/23 05:30 Magnesium 1.9 mg/dL (1.6-2.3) 03/28/23 05:30 03/28/23 05:30 03/28/23 05:30 Assessment and Plan Assessment: 1. [place] toxicity with intentional overdose and suicide attempt 2. Suicide attempt with previous history of intentional suicide with Effexor 3. Schizoaffective disorder 4.History of alcohol abuse 5. Positive drug screen for marijuana and benzodiazepines Plan: DC dialysis catheter Continue with IV fluids Repeat lithium level in a.m. suicide precautions thank you for the consultation. We will continue to follow the patient with you
[2023-03-28] MEDS ORDERED: HALOPERIDOL LACTATE 5 MG/ML 1 ML VIAL IM PRN (13:52)
--- NOTE | 2023-03-28 13:55 | P.CN ---
Psychiatric Consult - . Consult date: 03/28/23 Consult:: 03/28/23 13:53 IDENTIFYING DATA: This patient is a , unemployed, homeless, 37-year-old male with significant history of schizoaffective disorder, bipolar type who presented to our hospital on 03/27/2023 after an intentional overdose on lithium. HISTORY OF PRESENT ILLNESS: The patient presented to the hospital on 03/27/2023, who presented to the hospital after an intentional overdose on lithium. The states that he took 60 pills of lithium however was discharged with 14 tablets from last admission. His lithium level was noted to be 5.2 on admission and the patient was subsequently transferred to the ICU and hemodialyzed. Currently, his lithium level has been trending downwards and is now 2.5. Upon evaluation by this provider, patient states that he overdosed with intentions to take his life. He reports that he is tired of living. He states that he is homeless, lonely, and has no one to turn to. The patient however refuses to follow up with any outpatient appointments and treatment. He does not attend any resources provided to him by the psychiatric unit. The patient was also counseled on his substance abuse and how his substance abuse continues to negatively impact his mood and his ability to reach mental stabilization. When informed that he would have to sober in order for his brain to recover, the patient states "f-ck that." He remains precontemplative regarding substance use. He continues to endorse suicidal ideation. He reports no homicidal ideation. He denies any auditory or visual hallucinations. He reports no paranoia or delusions. PAST PSYCHIATRIC HISTORY: Patient has a history of schizoaffective disorder, malingering, methamphetamine abuse, alcohol use disorder, cannabis use disorder, cocaine use disorder, and nicotine dependence. He was last discharged on a regimen of lithium, Effexor, and Haldol decanoate. He was last hospitalized on our psychiatric unit on 03/20/2023 and was recently discharged on 03/24/2023. Patient is nonadherent with any outpatient psychiatric follow-up. Patient has had multiple attempts at suicide by overdose. PAST MEDICAL HISTORY: Past Medical History: No Reported History, Unable to Obtain, GERD/Reflux, Hypertension, Liver Disease Additional Past Medical History / Comment(s): Hepatitis C, DDD, back pain, bilateral carpel tunnel syndrome. He reports that he has heart disease that was found when he had kidney problems but he denies having a stress test or cardiac catheterization. History of Any Multi-Drug Resistant Organisms: None Reported MDRO Source:: unknown Past Surgical History: No Surgical Hx Reported, Unable to Obtain Additional Past Surgical History / Comment(s): Pt states he has had numerous "cysts" removed from where he injected IV drugs. Past Anesthesia/Blood Transfusion Reactions: No Reported Reaction, Unable to Obtain Additional Past Anesthesia/Blood Transfusion Reaction / Comment(s): Pt states he has never had surgery. Past Psychological History: Anxiety, Bipolar, Depression Additional Psychological History / Comment(s): He has had multiple [facility] mental health admissions. Smoking Status: Current every day smoker Past Alcohol Use History: Occasional Additional Past Alcohol Use History / Comment(s): Pt started smoking in 1994 and smokes 1ppd Past Drug Use History: Heroin, Marijuana, Methamphetamine Additional Drug Use History / Comment(s): Pt states he has used drugs in the past but none recently d/t no money. 12/15/21 UDS +marijuana. Denies using drugs this admission but has has meth, amph, and marajuana in his drug screen 03-09-23. ALLERGIES: NO KNOWN DRUG ALLERGIES CHEMICAL DEPENDENCY HISTORY: Patient does have a significant history of substance abuse including cocaine, methamphetamine, marijuana, tobacco, and alcohol. He remains pre-contemplative regarding his substance abuse. FAMILY PSYCHIATRIC/SUBSTANCE USE HISTORY: No reported family psychiatric history. SOCIAL HISTORY: Patient is homeless. He is . MENTAL STATUS EXAM: General Appearance: Patient appears to be stated age is alert , dressed in hospital gown, and appears slightly disheveled. Patient appears to have fair hygiene and grooming wearing hospital gown with fair eye contact. Behavior: Patient is pacing his room. Speech: Patient's speech is fluent and nonpressured. Monotone. Repetitive. Mood/Affect: Patient reports their mood is "I just want to be here", affect is flat. Suicidality/Homicidality: Patient endorses suicidal ideation. He denies any homicidal ideation. Perceptions: Patient denies any visual hallucinations and denies any auditory hallucinations Though content/process: Medication seeking. Memory and concentration: Very poor. Deputy. Judgment and insight: Very poor IMPRESSIONS: Schizoaffective disorder, depressive type Cannabis use disorder Methamphetamine use disorder History of malingering -Overall prognosis is very poor and guarded due to the patient's history of multiple attempts at suicide, years of polysubstance abuse, homelessness, and poor executive functioning. PLAN: -Continue your medical management. -At this time patient DOES meet criteria for inpatient psychiatric admission. The patient had an intentional overdose on lithium requiring hemodialysis. -Delirium precautions recommended with patient including - avoiding use of narcotics and RECEPTION MANAGER sedatives, limit anticholinergic medications when possible, frequent re-orientation, minimize use of restraints, open window shades during the day and close them at night -Would recommend the following medication changes/additions: Haldol 5 mg IM every 6 hours when necessary for agitation/acute psychosis Continue Xanax 1 mg by mouth 3 times a day for anxiety -Continue 1:1 sitter for safety -Cannot leave AMA at this time. Patient will need a petition and certification if attempting to leave AMA. -When medically stable, patient is eligible for transfer to a psych bed when available. Vital Signs Temp 98.6 F 03/28/23 12:15 Pulse 86 03/28/23 13:15 Resp 11 L 03/28/23 13:15 BP 122/73 03/28/23 13:15 Pulse Ox 95 03/28/23 13:15 FiO2 Intake & Output 03/27/23 03/28/23 03/28/23 18:59 06:59 18:59 Intake Total 5020 900 Output Total 3850 2150 Balance 1170 -1250 Weight 95.254 kg 99.6 kg Intake: IV 2200 900 Sodium Chloride 0.9% 1, 2200 900 000 ml @ 200 mls/hr IV . Q5H STA Rx#:[id number] Oral 1620 Hemodialysis 1200 Output: Urine 3850 2150 Hemodialysis 0 Other: Voiding Method Urinal Urinal # Bowel Movements 1 2 Laboratory Results WBC 9.1 k/uL (3.8-10.6) 03/28/23 05:30 RBC 4.44 m/uL (4.30-5.90) 03/28/23 05:30 Hgb 12.8 gm/dL (13.0-17.5) L 03/28/23 05:30 Hct 39.5 % (39.0-53.0) 03/28/23 05:30 MCV 89.0 fL (80.0-100.0) 03/28/23 05:30 MCH 28.9 pg (25.0-35.0) 03/28/23 05:30 MCHC 32.4 g/dL (31.0-37.0) 03/28/23 05:30 RDW 13.2 % (11.5-15.5) 03/28/23 05:30 Plt Count 128 k/uL (150-450) L 03/28/23 05:30 MPV 9.9 03/28/23 05:30 Neutrophils % 75 % 03/28/23 05:30 Lymphocytes % 14 % 03/28/23 05:30 Monocytes % 6 % 03/28/23 05:30 Eosinophils % 3 % 03/28/23 05:30 Basophils % 0 % 03/28/23 05:30 Neutrophils # 6.9 k/uL (1.3-7.7) 03/28/23 05:30 Lymphocytes # 1.2 k/uL (1.0-4.8) 03/28/23 05:30 Monocytes # 0.6 k/uL (0-1.0) 03/28/23 05:30 Eosinophils # 0.2 k/uL (0-0.7) 03/28/23 05:30 Basophils # 0.0 k/uL (0-0.2) 03/28/23 05:30 PT 10.7 sec (9.0-12.0) 03/27/23 16:52 INR 1.0 (<1.2) 03/27/23 16:52 APTT 23.0 sec (22.0-30.0) 03/27/23 16:52 Sodium 136 mmol/L (137-145) L 03/28/23 05:30 Potassium 3.2 mmol/L (3.5-5.1) L 03/28/23 05:30 Chloride 109 mmol/L (98-107) H 03/28/23 05:30 Carbon Dioxide 22 mmol/L (22-30) 03/28/23 05:30 Anion Gap 5 mmol/L 03/28/23 05:30 BUN 4 mg/dL (9-20) L 03/28/23 05:30 Creatinine 0.56 mg/dL (0.66-1.25) L 03/28/23 05:30 Est GFR (CKD-EPI)AfAm >90 (>60 ml/min/1.73 sqM) 03/28/23 05:30 Est GFR (CKD-EPI)NonAf >90 (>60 ml/min/1.73 sqM) 03/28/23 05:30 Glucose 122 mg/dL (74-99) H 03/28/23 05:30 POC Glucose (mg/dL) 80 mg/dL (70-110) 03/28/23 00:05 POC Glu Spray Gun Repairer ID Katie Hansen 03/28/23 00:05 Osmolality 282 mosm/kg (280-301) 03/27/23 16:52 Plasma Lactic Acid [place] 1.3 mmol/L (0.7-2.0) 03/27/23 16:52 Calcium 8.5 mg/dL (8.4-10.2) 03/28/23 05:30 Phosphorus 2.1 mg/dL (2.5-4.5) L 03/28/23 05:30 Magnesium 1.9 mg/dL (1.6-2.3) 03/28/23 05:30 Total Bilirubin 0.6 mg/dL (0.2-1.3) 03/27/23 16:52 AST 36 U/L (17-59) 03/27/23 16:52 ALT 20 U/L (4-49) 03/27/23 16:52 Alkaline Phosphatase 38 U/L (38-126) 03/27/23 16:52 Total Protein 7.5 g/dL (6.3-8.2) 03/27/23 16:52 Albumin 4.0 g/dL (3.5-5.0) 03/27/23 16:52 Salicylates <1.0 mg/dL 03/27/23 16:52 Urine Opiates Screen Not Detected (NotDetected) 03/27/23 16:52 Ur Oxycodone Screen Not Detected (NotDetected) 03/27/23 16:52 Urine Methadone Screen Not Detected (NotDetected) 03/27/23 16:52 Ur Propoxyphene Screen Not Detected (NotDetected) 03/27/23 16:52 Acetaminophen <10.0 ug/mL 03/27/23 16:52 Ur Barbiturates Screen Not Detected (NotDetected) 03/27/23 16:52 U Tricyclic Antidepress Not Detected (NotDetected) 03/27/23 16:52 Ur Phencyclidine Scrn Not Detected (NotDetected) 03/27/23 16:52 Ur Amphetamines Screen Not Detected (NotDetected) 03/27/23 16:52 U Methamphetamines Scrn Not Detected (NotDetected) 03/27/23 16:52 U Benzodiazepines Scrn Detected (NotDetected) H 03/27/23 16:52 [place] 2.5 mmol/L H* 03/28/23 05:30 Urine Cocaine Screen Not Detected (NotDetected) 03/27/23 16:52 U Marijuana (THC) Screen Detected (NotDetected) H 03/27/23 16:52 Serum Alcohol <10 mg/dL 03/27/23 16:52 Allergies Allergy/AdvReac Type Severity Reaction Status Date / Time No Known Allergies Allergy Verified 03/27/23 17:30 03/28/23 13:54
--- NOTE | 2023-03-28 14:21 | P.PN ---
Subjective Progress Note Date: 03/28/23 37 year old male with schizoaffective disorder, chronic low back pain presented to the ED for lethargy and recurrent diarrhea. Patient had claimed he took an entire bottle of [place] pills in an intentional overdose. In the ED, he was noted to be tachycardic with heart rate in the 100s. CBC showed leukocytosis of 12.3. Coagulation panel within normal limits. CMP showed sodium 134, BUN of 7, creatinine of 0.65, glucose of 63. Lactic acid negative. Salicylate, alcohol and acetaminophen negative. UDS positive for benzodiazepine and marijuana. [place] level elevated at 5.3. Right femoral dialysis catheter was inserted and patient was admitted to ICU for further management. He underwent emergent hemodialysis on 03/27. Dialysis catheter was discontinued on 03/28. Patient was seen and examined. No acute events overnight. Patient reports increased anxiety. Sitter at bedside. General: non toxic, no distress, appears at stated age Derm: warm, dry Head: atraumatic, normocephalic, symmetric Eyes: EOMI, no lid lag, anicteric sclera Cardiovascular: S1S2 reg, no murmur Lungs: CTA bilateral, no rhonchi, no rales , no accessory muscle use Ext: no gross muscle atrophy, no edema, no contractures Neuro: no focal neuro deficits Psych: Alert, oriented, appropriate affect [place] overdose Hypokalemia Suicidal ideation History of schizoaffective disorder and depression Based on my assessment of this patient, this patient meets a high complexity level of care. Patient has an acute diagnosis of lithium overdose in the setting of suicidal attempt that poses a threat to life or bodily function. His lithium level has decreased from 5.3 to 2.5 this morning. HD catheter has been discontinued by Nephrology. He remains on telemetry monitoring. Continue normal saline at 100 cc/hr. Xanax 1 mg PO TID as needed for anxiety. One to one sitter in place with suicidal precautions. Psychiatry has been consulted as well. Potassium will be replaced via protocol. I have reviewed the following marketing regional consultant notes: Nephrology note reviewed 03/28, discontinue HD, continue IV hydration, recheck lithium level tomorrow morning. I have reviewed the results of the following tests: CBC shows hemoglobin of 12.8 and platelet count 128. BMP shows sodium 136, potassium 3.2, chloride of 109, BUN of 4, creatinine of 0.56, glucose 122. I have ordered the following tests: BMP and lithium level ordered for tomorrow morning. I have discussed the care of this patient with the following independent historian: None. I have independently interpreted the following test below: None. I have discussed the management of this patient with the following physician: Case was discussed with Dr. Ruvalcaba who recommends transferring the patient when medically stable for higher level of care. Objective - Vital Signs Vital signs: Vital Signs Temp 98.4 F 03/28/23 07:55 Pulse 93 03/28/23 10:30 Resp 12 03/28/23 10:15 BP 138/98 03/28/23 10:30 Pulse Ox 96 03/28/23 10:15 FiO2 Intake & Output 03/27/23 03/28/23 03/28/23 18:59 06:59 18:59 Intake Total 5020 600 Output Total 3850 800 Balance 1170 -200 Weight 95.254 kg 99.6 kg Intake: IV 2200 600 Sodium Chloride 0.9% 1, 2200 600 000 ml @ 200 mls/hr IV . Q5H STA Rx#:[id number] Oral 1620 Hemodialysis 1200 Output: Urine 3850 800 Hemodialysis 0 Other: Voiding Method Urinal Urinal # Bowel Movements 1 2 - Labs CBC & Chem 7: 03/28/23 05:30 03/28/23 05:30 Labs: Abnormal Lab Results - Last 24 Hours (Table) 03/27/23 03/27/23 03/27/23 Range/Units 16:52 16:52 16:52 WBC 12.3 H (3.8-10.6) k/uL Hgb (13.0-17.5) gm/dL Plt Count (150-450) k/uL Neutrophils # 9.4 H (1.3-7.7) k/uL Sodium 134 L (137-145) mmol/L Potassium (3.5-5.1) mmol/L Chloride (98-107) mmol/L BUN 7 L (9-20) mg/dL Creatinine 0.65 L (0.66-1.25) mg/dL Glucose 63 L (74-99) mg/dL POC Glucose (mg/dL) (70-110) mg/dL Phosphorus (2.5-4.5) mg/dL U Benzodiazepines Scrn Detected H (NotDetected) [place] 5.3 H* mmol/L U Marijuana (THC) Screen Detected H (NotDetected) 03/27/23 03/28/23 03/28/23 Range/Units 20:00 05:30 05:30 WBC (3.8-10.6) k/uL Hgb 12.8 L (13.0-17.5) gm/dL Plt Count 128 L (150-450) k/uL Neutrophils # (1.3-7.7) k/uL Sodium 136 L (137-145) mmol/L Potassium 3.2 L (3.5-5.1) mmol/L Chloride 109 H (98-107) mmol/L BUN 4 L (9-20) mg/dL Creatinine 0.56 L (0.66-1.25) mg/dL Glucose 122 H (74-99) mg/dL POC Glucose (mg/dL) 68 L (70-110) mg/dL Phosphorus 2.1 L (2.5-4.5) mg/dL U Benzodiazepines Scrn (NotDetected) [place] 2.5 H* mmol/L U Marijuana (THC) Screen (NotDetected)
[2023-03-28] MEDS ORDERED: POTAS-SOD-PHOS 278-164-250 MG 1 EACH PACKET PO ONE (14:53)
[2023-03-28] MEDS ORDERED: Phosphorus Replacement Protoco 1 EACH MISC MISCELLANE PRN (14:53)
[2023-03-28] MEDS: POTASSIUM CHLORIDE ER 20 MEQ TAB.ER PO SCH ×2 (15:20→16:41)
[2023-03-28 16:11] LABS: Glucose,Whole Blood 94 mg/dL (70-110)
[2023-03-29 01:45] LABS: Glucose,Whole Blood 120 mg/dL (70-110)
[2023-03-29] MEDS: SODIUM CHLORIDE 0.9% 1,000 ML IV SCH (03:13)
[2023-03-29 05:51] LABS: Glucose,Whole Blood 108 mg/dL (70-110)
[2023-03-29] MEDS: PANTOPRAZOLE 40 MG TABLET PO SCH (09:14)
[2023-03-29] MEDS: ALPRAZolam 1 MG TAB PO SCH ×3 (09:14→20:58)
[2023-03-29] MEDS: HEPARIN SODIUM,PORCINE/PF 5,000 UNIT/0.5 ML SYRINGE SQ SCH ×2 (09:15→20:58)
[2023-03-29] MEDS: NICOTINE 21MG/24HR PATCH TRANSDERM SCH (11:42)
[2023-03-29 11:47] LABS: Basophils # (A) 0.04 X 10*3/uL (0.00-0.10); Basophils % (A) 0.5 %; Eosinophils # (A) 0.42 X 10*3/uL (0.04-0.35); Eosinophils % (A) 5.3 %; HCT 36.2 % (39.6-50.0); HGB 12.3 g/dL (13.0-17.0); Immature Grans, Automated 0.3 %; Lymphocytes # (A) 2.41 X 10*3/uL (0.90-5.00); Lymphocytes % (A) 30.4 %; MCH 29.6 pg (27.0-32.0); Mean Platelet Volume 12.5 fL (9.5-12.2); Monocytes # (A) 0.62 X 10*3/uL (0.20-1.00); Monocytes % (A) 7.8 %; NRBC Per 100 WBC 0 /100 WBCS (0.0-0.0); Neutrophils # (A) 4.41 X 10*3/uL (1.80-7.70); Neutrophils % (A) 55.7 %; Platelet Count 129 X 10*3/uL (140-440); RBC 4.16 X 10*6/uL (4.40-5.60); WBC 7.92 X 10*3/uL (4.50-10.00)
--- NOTE | 2023-03-29 11:53 | P.PN ---
Subjective Patient is seen for follow-up for lithium toxicity. He was dialyzed as lithium level was 5.3 on initial admission. Dialysis catheter was removed yesterday. [place] level is down to 1.7 today. Patient is laying in bed he is comfortable denies any significant complaints. Patient has been voiding. Objective - Vital Signs Vital signs: Vital Signs Temp 97.9 F 03/29/23 07:10 Pulse 77 03/29/23 07:10 Resp 16 03/29/23 07:10 BP 120/79 03/29/23 07:10 Pulse Ox 98 03/29/23 07:10 FiO2 Intake & Output 03/28/23 03/29/23 03/29/23 18:59 06:59 18:59 Intake Total 1300 Output Total 2500 Balance -1200 Intake: IV 1300 Sodium Chloride 0.9% 1, 300 000 ml @ 100 mls/hr IV . Q10H KATARZYNA Rx#:[id number] Sodium Chloride 0.9% 1, 1000 000 ml @ 200 mls/hr IV . Q5H STA Rx#:[id number] Output: Urine 2500 Other: Voiding Method Urinal # Voids 1 # Bowel Movements 2 - Exam Awake comfortable not in any acute distress Appears euvolemic SQUILGEER exam grossly intact - Labs CBC & Chem 7: 03/29/23 05:38 03/28/23 05:30 Labs: Abnormal Lab Results - Last 24 Hours (Table) 03/29/23 03/29/23 Range/Units 01:44 05:38 RBC 4.16 L (4.40-5.60) X 10*6/uL Hgb 12.3 L (13.0-17.0) g/dL Hct 36.2 L (39.6-50.0) % Plt Count 129 L (140-440) X 10*3/uL MPV 12.5 H (9.5-12.2) fL Eosinophils # 0.42 H (0.04-0.35) X 10*3/uL POC Glucose (mg/dL) 120 H (70-110) mg/dL Assessment and Plan Assessment: 1. [place] toxicity with intentional overdose and suicide attempt status post hemodialysis 1 as level was 5.3. Dialysis catheter has been removed 2. Suicide attempt with previous history of intentional suicide with Effexor 3. Schizoaffective disorder 4. History of alcohol abuse 5. Positive drug screen for marijuana and benzodiazepines Plan: Treatment per psych. DC IV fluids is tolerating oral intake. Check BMP in a.m.
[2023-03-29] MEDS ORDERED: chlorproMAZINE 25 MG TAB PO STA (12:07)
--- NOTE | 2023-03-29 12:45 | P.PN ---
Progress Note - Text Progress Note Date: 03/29/23 Interval History: Patient was seen pacing in his room and was directable and agreeable to speak with health underwriter in his room. And lay, the patient is not reporting any suicidal or homicidal ideation, intention, and/or plan. Prior to this provider seeing the patient, he was noted by staff to be hitting contreras in his bed asking for medications in order to calm him down. He is not reporting any auditory or visual hallucinations. He is denying any paranoia or other delusions. He expresses a strong desire to not come on to the psychiatric unit. He was however informed that he does require inpatient psychiatric admission and we are looking to transfer him. He was agreeable to starting Thorazine throughout the day until he is transferred. When confronted about his behaviors, the patient vehemently denies this stating that he has been well behaved. Mental Status Exam: General Appearance: Patient appears to be stated age is alert, directable, and cooperative. Disheveled. Wearing a hospital gown. Behavior: Patient appears to be restless and is constantly pacing in his room. Speech: Patient's speech is fluent and nonpressured. Mood/Affect: Mood is "nervous." Affect is irritable and demanding. Suicidality/Homicidality: Patient denies having any suicidal or homicidal ideation intent or plan. Perceptions: Patient denies any visual hallucinations and denies any auditory hallucinations Though content/process: Medications seeking. Memory and concentration: AOX3, grossly intact for the purposes of this session Judgment and insight: Improving mildly Vital Signs Temp 97.9 F 03/29/23 07:10 Pulse 77 03/29/23 07:10 Resp 16 03/29/23 07:10 BP 120/79 03/29/23 07:10 Pulse Ox 98 03/29/23 07:10 FiO2 Intake & Output 03/28/23 03/29/23 03/29/23 18:59 06:59 18:59 Intake Total 1300 Output Total 2500 Balance -1200 Intake: IV 1300 Sodium Chloride 0.9% 1, 300 000 ml @ 100 mls/hr IV . Q10H KATARZYNA Rx#:[id number] Sodium Chloride 0.9% 1, 1000 000 ml @ 200 mls/hr IV . Q5H STA Rx#:[id number] Output: Urine 2500 Other: Voiding Method Urinal # Voi ds 1 # Bowel Movements 2 Assessment Schizoaffective disorder, depressive type Cannabis use disorder Methamphetamine use disorder History of malingering -Overall prognosis is very poor and guarded due to the patient's history of multiple attempts at suicide, years of polysubstance abuse, homelessness, and poor executive functioning. Plan: -Continue your medical management. -At this time patient DOES meet criteria for inpatient psychiatric admission. The patient had an intentional overdose on lithium requiring hemodialysis. -The patient is recommended for transfer to a different psychiatric unit as he has exhausted therapeutic benefit from our psychiatric unit. -Delirium precautions recommended with patient including - avoiding use of narcotics and DOWEL PIN WORKER sedatives, limit anticholinergic medications when possible, frequent re-orientation, minimize use of restraints, open window shades during the day and close them at night -Would recommend the following medication changes/additions: Haldol 5 mg IM every 6 hours when necessary for agitation/acute psychosis Start Thorazine 25 mg by mouth 4 times a day for agitation Continue Xanax 1 mg by mouth 3 times a day for anxiety -Continue 1:1 sitter for safety -Cannot leave AMA at this time. Patient will need a petition and certification if attempting to leave AMA. -When medically stable, patient is eligible for transfer to a psych bed when available.
--- NOTE | 2023-03-29 12:51 | P.PN ---
Subjective Progress Note Date: 03/29/23 I am seeing this patient in new consultation today 03/28/2023 in the intensive care unit after an intentional lithium overdose. Patient is a 37-year-old male with a significant past medical history of depression and previous suicide attempts, polysubstance abuse (including heroin, methamphetamines, cocaine, marijuana) requiring previous intubation and mechanical ventilator support, hepatitis C, schizoaffective disorder, alcohol abuse, and chronic tobacco use. Patient was recently discharged from [facility] on 03/24/2023 due to an intentional suicide attempt with Effexor. He was discharged with 14 tablets of 900 mg lithium carbonate extended release and 7 tablets of 50 mg Effexor. Patient reportedly took the entire bottle of lithium. He states that he feels there were more than 14 tablets. He denies taking any other medications. He came to the emergency room yesterday evening after experiencing severe diarrhea. [place] level was 5.3 on arrival. Urine tox screen was positive for benzodiaze [place] and marijuana. Serum alcohol was less than 10. Poison control was contacted in the emergency room. Patient is currently lying in bed, on room air, fairly comfortable. He is still reporting suicidal ideation, and a suicide sitter is at the bedside. He is currently alert and oriented 3. He is still experiencing frequent bouts of liquid diarrhea, polyuria, and a slight generalized tremor. Hemodialysis access was obtained in the emergency room, and the patient is currently receiving hemodialysis. Normal saline is infusing at 200 ML's per hour. He has had a total of 2.1 L of urine output over last 4 hours. No cardiac conduction abnormalities noted. CBC shows a WBC count of 12.3, hemoglobin 14.5, hematocrit 42.6, platelets 171. BMP shows a sodium 134, potassium 4.7, chloride 103, serum CO2 30, BUN 7, creatinine 0.65, glucose 63. Blood glucose level has come up to 80 mg/dl. Vital signs are stable at this time. On today's evaluation of 03/29/2023, the patient is resting comfortably in bed. Is communicating. Is appropriate. He got moved out of the intensive care unit. He is acute lithium toxicity has recovered. The patient required one session of hemodialysis.The labs from today shows a WD spinal 7.9, hemoglobin is 12.3 and the patient's lithium level is down to 1.7. And he underwent as mentioned, the patient is suicidal and he underwent a psychiatric evaluation. He is a candidate for inpatient psychiatric admission. He was placed on Haldol 5 mg IM every 6 hours for agitation and psychosis. He was also given Xanax 1 mg 3 times a day for anxiety and he continues to be monitored by Sharona cope at the bedside. Objective - Vital Signs Vital signs: Vital Signs Temp 97.9 F 03/29/23 07:10 Pulse 77 03/29/23 07:10 Resp 16 03/29/23 07:10 BP 120/79 03/29/23 07:10 Pulse Ox 98 03/29/23 07:10 FiO2 Intake & Output 03/28/23 03/29/23 03/29/23 18:59 06:59 18:59 Intake Total 1300 Output Total 2500 Balance -1200 Intake: IV 1300 Sodium Chloride 0.9% 1, 300 000 ml @ 100 mls/hr IV . Q10H KATARZYNA Rx#:[id number] Sodium Chloride 0.9% 1, 1000 000 ml @ 200 mls/hr IV . Q5H STA Rx#:[id number] Output: Urine 2500 Other: Voiding Method Urinal # Voids 1 # Bowel Movements 2 - Exam GENERAL EXAM: Alert, 37-year-old white male, fairly comfortable in no apparent distress. HEAD: Normocephalic and atraumatic EYES: Normal reaction of pupils, equal size. NOSE: Clear with pink turbinates. THROAT: No erythema or exudates. NECK: No masses, no JVD. CHEST: No chest wall deformity. LUNGS: Equal air entry with no crackles, wheeze, rhonchi or dullness. On room air. No conversational dyspnea or accessory muscle use.. CVS: S1 and S2 normal with no audible murmur, regular rhythm. No extra heart sounds ABDOMEN: No hepatosplenomegaly, hyperactive bowel sounds, no guarding or rigidity. SPINE: No scoliosis or deformity SKIN: No rashes CENTRAL NERVOUS SYSTEM: No focal deficits, tone is normal in all 4 extremities. EXTREMITIES: There is no peripheral edema, clubbing, or cyanosis. Peripheral pulses are intact. - Labs CBC & Chem 7: 03/29/23 05:38 03/28/23 05:30 Labs: Abnormal Lab Results - Last 24 Hours (Table) 03/29/23 03/29/23 Range/Units 01:44 05:38 RBC 4.16 L (4.40-5.60) X 10*6/uL Hgb 12.3 L (13.0-17.0) g/dL Hct 36.2 L (39.6-50.0) % Plt Count 129 L (140-440) X 10*3/uL MPV 12.5 H (9.5-12.2) fL Eosinophils # 0.42 H (0.04-0.35) X 10*3/uL POC Glucose (mg/dL) 120 H (70-110) mg/dL Assessment and Plan Assessment: Intentional suicide attempt with lithium, 14 tablets of 900 mg extended release. [place] level was 5.3 on arrival. Poison control was contacted in the emergency room. Patient is currently undergoing hemodialysis. 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 Urine tox screen was positive for benzodiazepines and marijuana on this admission History of schizoaffective disorder History of alcohol abuse, serum alcohol level less than 10 on this admission History of hepatitis C Hypoglycemia Chronic and ongoing nicotine dependence Homelessness Plan: Clinically and hemodynamically stable Psychiatric evaluation has been done and the patient meets inpatient criteria for psychiatric treatment Continue Haldol and Ativan Pulmonary and critical care services will sign off
[2023-03-29 13:22] LABS: Lithium 1.3 mmol/L (0.50-1.20)
--- NOTE | 2023-03-29 14:58 | P.PN ---
Subjective Progress Note Date: 03/29/23 37 year old male with schizoaffective disorder, chronic low back pain presented to the ED for lethargy and recurrent diarrhea. Patient had claimed he took an entire bottle of [place] pills in an intentional overdose. In the ED, he was noted to be tachycardic with heart rate in the 100s. CBC showed leukocytosis of 12.3. Coagulation panel within normal limits. CMP showed sodium 134, BUN of 7, creatinine of 0.65, glucose of 63. Lactic acid negative. Salicylate, alcohol and acetaminophen negative. UDS positive for benzodiazepine and marijuana. [place] level elevated at 5.3. Right femoral dialysis catheter was inserted and patient was admitted to ICU for further management. He underwent emergent hemodialysis on 03/27. Dialysis catheter was discontinued on 03/28. 03/29 Patient was seen and examined. No acute events overnight. Patient reports increased anxiety. Sitter at bedside. General: non toxic, no distress, appears at stated age Derm: warm, dry Head: atraumatic, normocephalic, symmetric Eyes: EOMI, no lid lag, anicteric sclera Cardiovascular: S1S2 reg, no murmur Lungs: CTA bilateral, no rhonchi, no rales , no accessory muscle use Ext: no gross muscle atrophy, no edema, no contractures Neuro: no focal neuro deficits Psych: Alert, oriented, appropriate affect [place] overdose Hypokalemia Suicidal ideation History of schizoaffective disorder and depression Based on my assessment of this patient, this patient meets a moderate complexity level of care. Patient has an acute diagnosis of lithium overdose in the setting of suicidal attempt that poses a threat to life or bodily function. His lithium level has decreased from 5.3 to 1.3 this morning. HD catheter has been discontinued by Nephrology. He remains on telemetry monitoring. DC IVF. Xanax 1 mg PO TID as needed for anxiety. One to one sitter in place with suicidal precautions. Psychiatry on board pending transfer to inpatient [facility]. Potassium will be replaced via protocol. Patient is medically cleared for discharge to [facility] when bed is available. I have reviewed the following senior erp consultant notes: Nephrology note reviewed 03/29, check BMP in the AM, DC IV hydration. I have reviewed the results of the following tests: CBC shows hemoglobin of 12.3 and platelet count 129. [place] level is 1.3. I have ordered the following tests: BMP is pending. BMP and [place] level ordered for tomorrow morning. I have discussed the care of this patient with the following independent historian: None. I have independently interpreted the following test below: None. I have discussed the management of this patient with the following physician: None. Objective - Vital Signs Vital signs: Vital Signs Temp 97.9 F 03/29/23 07:10 Pulse 77 03/29/23 07:10 Resp 16 03/29/23 07:10 BP 120/79 03/29/23 07:10 Pulse Ox 98 03/29/23 07:10 FiO2 Intake & Output 03/28/23 03/29/23 03/29/23 18:59 06:59 18:59 Intake Total 1300 Output Total 2500 Balance -1200 Intake: IV 1300 Sodium Chloride 0.9% 1, 300 000 ml @ 100 mls/hr IV . Q10H KATARZYNA Rx#:[id number] Sodium Chloride 0.9% 1, 1000 000 ml @ 200 mls/hr IV . Q5H STA Rx#:[id number] Output: Urine 2500 Other: Voiding Method Urinal # Voids 1 4 # Bowel Movements 2 - Labs CBC & Chem 7: 03/29/23 05:38 03/28/23 05:30 Labs: Abnormal Lab Results - Last 24 Hours (Table) 03/29/23 03/29/23 03/29/23 Range/Units 01:44 05:38 05:38 RBC 4.16 L (4.40-5.60) X 10*6/uL Hgb 12.3 L (13.0-17.0) g/dL Hct 36.2 L (39.6-50.0) % Plt Count 129 L (140-440) X 10*3/uL MPV 12.5 H (9.5-12.2) fL Eosinophils # 0.42 H (0.04-0.35) X 10*3/uL POC Glucose (mg/dL) 120 H (70-110) mg/dL [place] 1.30 H (0.50-1.20) mmol/L
[2023-03-29] MEDS: chlorproMAZINE 25 MG TAB PO SCH ×3 (15:12→20:58)
[2023-03-29 18:09] LABS: African American GFR (CKD) 133.4 (60.0-200.0); Anion Gap 10.9 mmol/L (10.00-18.00); BUN/Creat Ratio 6.04 Ratio (12.00-20.00); Blood Urea Nitrogen 4.8 mg/dL (9.0-27.0); Calcium 8.9 mg/dL (8.7-10.3); Carbon Dioxide 21.1 mmol/L (20.0-27.5); Non-African American GFR(CKD) 115.1 (60.0-200.0); Potassium 3.6 mmol/L (3.5-5.5)
[2023-03-29] MEDS: ACETAMINOPHEN TAB 325 MG TAB PO PRN (20:57)
[2023-03-29] MEDS: MELATONIN 5 MG TABLET PO SCH (20:58)
[2023-03-30 02:18] LABS: Glucose,Whole Blood 118 mg/dL (70-110)
[2023-03-30 05:14] LABS: African American GFR (CKD) >90 (>60 ml/min/1.73 sqM); Anion Gap 8 mmol/L; Blood Urea Nitrogen 6 mg/dL (9-20); Calcium 8.8 mg/dL (8.4-10.2); Carbon Dioxide 25 mmol/L (22-30); Chloride 107 mmol/L (98-107); Glucose 102 mg/dL (74-99); Lithium 0.7 mmol/L; Non-African American GFR(CKD) >90 (>60 ml/min/1.73 sqM); Potassium 3.3 mmol/L (3.5-5.1); Sodium 140 mmol/L (137-145)
[2023-03-30 06:04] LABS: Glucose,Whole Blood 139 mg/dL (70-110)
[2023-03-30] MEDS: ALPRAZolam 1 MG TAB PO SCH ×3 (07:08→20:39)
[2023-03-30] MEDS: PANTOPRAZOLE 40 MG TABLET PO SCH (07:08)
[2023-03-30] MEDS: POTASSIUM CHLORIDE ER 20 MEQ TAB.ER PO SCH ×2 (07:08→09:15)
[2023-03-30] MEDS ORDERED: POTASSIUM CHLORIDE ER 20 MEQ TAB.ER PO STA (08:56)
[2023-03-30] MEDS: HEPARIN SODIUM,PORCINE/PF 5,000 UNIT/0.5 ML SYRINGE SQ SCH ×2 (09:15→20:39)
[2023-03-30] MEDS: NICOTINE 21MG/24HR PATCH TRANSDERM SCH (09:15)
[2023-03-30] MEDS: chlorproMAZINE 25 MG TAB PO SCH ×4 (09:17→20:39)
[2023-03-30 11:13] LABS: Glucose,Whole Blood 90 mg/dL (70-110)
--- NOTE | 2023-03-30 11:48 | P.PN ---
Subjective Patient is seen for follow-up for lithium toxicity. He was dialyzed as lithium level was 5.3 on initial admission. Dialysis catheter was removed. [place] level is down to 0.7 today. Patient is laying in bed he is comfortable denies any significant complaints. Patient has been voiding. IV fluids discontinued. Tolerating oral intake. Objective - Vital Signs Vital signs: Vital Signs Temp 97.5 F L 03/30/23 07:25 Pulse 78 03/30/23 07:25 Resp 16 03/30/23 07:25 BP 161/89 03/30/23 07:25 Pulse Ox 94 L 03/30/23 09:02 FiO2 Intake & Output 03/29/23 03/30/23 03/30/23 18:59 06:59 18:59 Other: # Voids 4 2 3 # Bowel Movements 1 - Exam Awake comfortable not in any acute distress, alert oriented 3 Examination of the heart S1 and S2 Examination of the lungs bilateral breath sounds are heard Abdomen is soft nontender Examination of lower extremity shows no edema Appears euvolemic CARE AIDE exam grossly intact - Labs CBC & Chem 7: 03/29/23 05:38 03/30/23 04:11 Labs: Abnormal Lab Results - Last 24 Hours (Table) 03/29/23 03/29/23 03/30/23 Range/Units 05:38 05:38 02:17 RBC 4.16 L (4.40-5.60) X 10*6/uL Hgb 12.3 L (13.0-17.0) g/dL Hct 36.2 L (39.6-50.0) % Plt Count 129 L (140-440) X 10*3/uL MPV 12.5 H (9.5-12.2) fL Eosinophils # 0.42 H (0.04-0.35) X 10*3/uL Sodium 147 H (135-145) mmol/L Potassium (3.5-5.1) mmol/L Chloride 115 H (96-109) mmol/L BUN 4.8 L (9.0-27.0) mg/dL Creatinine (0.66-1.25) mg/dL BUN/Creatinine Ratio 6.04 L (12.00-20.00) Ratio Glucose (74-99) mg/dL POC Glucose (mg/dL) 118 H (70-110) mg/dL [place] 1.30 H (0.50-1.20) mmol/L 03/30/23 03/30/23 Range/Units 04:11 06:03 RBC (4.40-5.60) X 10*6/uL Hgb (13.0-17.0) g/dL Hct (39.6-50.0) % Plt Count (140-440) X 10*3/uL MPV (9.5-12.2) fL Eosinophils # (0.04-0.35) X 10*3/uL Sodium (135-145) mmol/L Potassium 3.3 L (3.5-5.1) mmol/L Chloride (96-109) mmol/L BUN 6 L (9.0-27.0) mg/dL Creatinine 0.64 L (0.66-1.25) mg/dL BUN/Creatinine Ratio (12.00-20.00) Ratio Glucose 102 H (74-99) mg/dL POC Glucose (mg/dL) 139 H (70-110) mg/dL [place] (0.50-1.20) mmol/L Assessment and Plan Assessment: 1. [place] toxicity with intentional overdose and suicide attempt status post hemodialysis 1 as level was 5.3. Dialysis catheter has been removed 2. Suicide attempt with previous history of intentional suicide with Effexor 3. Schizoaffective disorder 4. History of alcohol abuse 5. Positive drug screen for marijuana and benzodiazepines Plan: Treatment per psych. Continue off of IV fluids Replace potassium
--- NOTE | 2023-03-30 15:19 | P.PN ---
Subjective Progress Note Date: 03/30/23 37 year old male with schizoaffective disorder, chronic low back pain presented to the ED for lethargy and recurrent diarrhea. Patient had claimed he took an entire bottle of [place] pills in an intentional overdose. In the ED, he was noted to be tachycardic with heart rate in the 100s. CBC showed leukocytosis of 12.3. Coagulation panel within normal limits. CMP showed sodium 134, BUN of 7, creatinine of 0.65, glucose of 63. Lactic acid negative. Salicylate, alcohol and acetaminophen negative. UDS positive for benzodiazepine and marijuana. [place] level elevated at 5.3. Right femoral dialysis catheter was inserted and patient was admitted to ICU for further management. He underwent emergent hemodialysis on 03/27. Dialysis catheter was discontinued on 03/28. 03/30 Patient was seen and examined. No acute events overnight. Patient reports increased anxiety. Sitter at bedside. General: non toxic, no distress, appears at stated age Derm: warm, dry Head: atraumatic, normocephalic, symmetric Eyes: EOMI, no lid lag, anicteric sclera Cardiovascular: Good distal perfusion in all 4 extremities Lungs: no accessory muscle use Ext: no gross muscle atrophy, no edema, no contractures Neuro: no focal neuro deficits Psych: Alert, oriented, appropriate affect [place] overdose Hypokalemia Suicidal ideation History of schizoaffective disorder and depression Based on my assessment of this patient, this patient meets a moderate complexity level of care. Patient has an acute diagnosis of lithium overdose in the setting of suicidal attempt that poses a threat to life or bodily function. His lithium level has decreased from 5.3 to 0.7 this morning. HD catheter has been discontinued by Nephrology. He remains on telemetry monitoring. DC IVF. Xanax 1 mg PO TID as needed for anxiety. One to one sitter in place with suicidal precautions. Psychiatry on board pending transfer to inpatient ps. Potassium will be replaced via protocol. Patient is medically cleared for discharge to [facility] when bed is available. I have reviewed the following programmer analyst consultant notes: Nephrology note reviewed 03/30, replace potassium. I have reviewed the results of the following tests: BMP shows potassium of 3.3, BUN of 6, creatinine of 0.64, glucose 104. [place] level 0.7. I have ordered the following tests: None. I have discussed the care of this patient with the following independent historian: None. I have independently interpreted the following test below: None. I have discussed the management of this patient with the following physician: The case was discussed with Dr. Ruvalcaba who recommends outside hospital transfer to [facility] for higher level of care. Case managment on board and aware. Objective - Vital Signs Vital signs: Vital Signs Temp 97.9 F 03/30/23 13:30 Pulse 88 03/30/23 13:30 Resp 16 03/30/23 13:30 BP 146/97 03/30/23 13:30 Pulse Ox 99 03/30/23 13:30 FiO2 Intake & Output 03/29/23 03/30/23 03/30/23 18:59 06:59 18:59 Other: # Voids 4 2 1 # Bowel Movements 1 - Labs CBC & Chem 7: 03/29/23 05:38 03/30/23 04:11 Labs: Abnormal Lab Results - Last 24 Hours (Table) 03/29/23 03/30/23 03/30/23 Range/Units 05:38 02:17 04:11 Sodium 147 H (135-145) mmol/L Potassium 3.3 L (3.5-5.1) mmol/L Chloride 115 H (96-109) mmol/L BUN 4.8 L 6 L (9.0-27.0) mg/dL Creatinine 0.64 L (0.66-1.25) mg/dL BUN/Creatinine Ratio 6.04 L (12.00-20.00) Ratio Glucose 102 H (74-99) mg/dL POC Glucose (mg/dL) 118 H (70-110) mg/dL 03/30/23 Range/Units 06:03 Sodium (135-145) mmol/L Potassium (3.5-5.1) mmol/L Chloride (96-109) mmol/L BUN (9.0-27.0) mg/dL Creatinine (0.66-1.25) mg/dL BUN/Creatinine Ratio (12.00-20.00) Ratio Glucose (74-99) mg/dL POC Glucose (mg/dL) 139 H (70-110) mg/dL
[2023-03-30] MEDS: MELATONIN 5 MG TABLET PO SCH (20:39)
[2023-03-31] MEDS: PANTOPRAZOLE 40 MG TABLET PO SCH (06:22)
[2023-03-31] MEDS: ALPRAZolam 1 MG TAB PO SCH (06:22)
[2023-03-31] MEDS: HEPARIN SODIUM,PORCINE/PF 5,000 UNIT/0.5 ML SYRINGE SQ SCH (08:04)
[2023-03-31] MEDS: chlorproMAZINE 25 MG TAB PO SCH ×3 (08:04→17:01)
[2023-03-31] MEDS: NICOTINE 21MG/24HR PATCH TRANSDERM SCH (08:08)
[2023-03-31 11:09] LABS: ALT 14 U/L (10-49); AST 16 U/L (14-35); African American GFR (CKD) 134.5 (60.0-200.0); Albumin 3.6 g/dL (3.8-4.9); Albumin/Globulin Ratio 1.33 (1.60-3.17); Alkaline Phosphatase 50 U/L (41-126); BUN/Creat Ratio 7.32 Ratio (12.00-20.00); Blood Urea Nitrogen 5.7 mg/dL (9.0-27.0); Calcium 9.5 mg/dL (8.7-10.3); Carbon Dioxide 25.2 mmol/L (20.0-27.5); Chloride 109 mmol/L (96-109); Globulin 2.7 g/dL (1.6-3.3); Glucose 119 mg/dL (70-110); Non-African American GFR(CKD) 116.1 (60.0-200.0); Sodium 143 mmol/L (135-145); Total Bilirubin <0.15 mg/dL (0.30-1.20); Total Protein 6.3 g/dL (6.2-8.2)
--- NOTE | 2023-03-31 12:42 | P.PN ---
Subjective Progress Note Date: 03/31/23 37 year old male with schizoaffective disorder, chronic low back pain presented to the ED for lethargy and recurrent diarrhea. Patient had claimed he took an entire bottle of [place] pills in an intentional overdose. In the ED, he was noted to be tachycardic with heart rate in the 100s. CBC showed leukocytosis of 12.3. Coagulation panel within normal limits. CMP showed sodium 134, BUN of 7, creatinine of 0.65, glucose of 63. Lactic acid negative. Salicylate, alcohol and acetaminophen negative. UDS positive for benzodiazepine and marijuana. [place] level elevated at 5.3. Right femoral dialysis catheter was inserted and patient was admitted to ICU for further management. He underwent emergent hemodialysis on 03/27. Dialysis catheter was discontinued on 03/28. 03/31 Patient was seen and examined. No acute events overnight. Patient reports increased anxiety. Sitter at bedside. General: non toxic, no distress, appears at stated age Derm: warm, dry Head: atraumatic, normocephalic, symmetric Eyes: EOMI, no lid lag, anicteric sclera Cardiovascular: Good distal perfusion in all 4 extremities Lungs: no accessory muscle use Ext: no gross muscle atrophy, no edema, no contractures Neuro: no focal neuro deficits Psych: Alert, oriented, appropriate affect [place] overdose Hypokalemia Suicidal ideation History of schizoaffective disorder and depression Based on my assessment of this patient, this patient meets a moderate complexity level of care. Patient has an acute diagnosis of lithium overdose in the setting of suicidal attempt that poses a threat to life or bodily function. His lithium level is within normal limits. HD catheter has been discontinued by Nephrology. He remains on telemetry monitoring. DC IVF. Xanax 1 mg PO TID as needed for anxiety. One to one sitter in place with suicidal precautions. Psychiatry on board pending transfer to inpatient [facility]. Potassium will be replaced via protocol. Patient is medically cleared for discharge to [facility] when bed is available. I have reviewed the following lean process deployment consultant notes: None. I have reviewed the results of the following tests: BMP shows anion gap of 9.3, BUN 5.7, glucose 119, total biirubin < 0.15, albumin 3.6. I have ordered the following tests: None. I have discussed the care of this patient with the following independent historian: None. I have independently interpreted the following test below: None. I have discussed the management of this patient with the following physician: Discussed with case management, working on placement. Objective - Vital Signs Vital signs: Vital Signs Temp 97.8 F 03/31/23 07:10 Pulse 86 03/31/23 07:10 Resp 16 03/31/23 07:10 BP 125/83 03/31/23 07:10 Pulse Ox 98 03/31/23 09:06 FiO2 Intake & Output 03/30/23 03/31/23 03/31/23 18:59 06:59 18:59 Other: # Voids 1 2 # Bowel Movements 1 - Labs CBC & Chem 7: 03/29/23 05:38 03/31/23 07:39 Labs: Abnormal Lab Results - Last 24 Hours (Table) 03/31/23 Range/Units 07:39 Anion Gap 9.30 L (10.00-18.00) mmol/L BUN 5.7 L (9.0-27.0) mg/dL BUN/Creatinine Ratio 7.32 L (12.00-20.00) Ratio Glucose 119 H (70-110) mg/dL Total Bilirubin <0.15 L (0.30-1.20) mg/dL Albumin 3.6 L (3.8-4.9) g/dL Albumin/Globulin Ratio 1.33 L (1.60-3.17) g/dL
--- NOTE | 2023-03-31 15:57 | P.DS ---
Providers Date of admission: 03/27/23 18:45 Expected date of discharge: 03/31/23 Attending physician: Timothy Palma MD Consults: 03/27/23 18:04 Consult Physician Stat Consulting Provider: Percy Love Consult Reason/Comments: HD cath placement Do you want consulting provider notified?: Already Contacted 03/27/23 18:31 Consult Physician Stat Consulting Provider: Kristie Champion Consult Reason/Comments: stat HD for lithium toxicity Do you want consulting provider notified?: Already Contacted 03/27/23 18:45 Consult Physician Stat Consulting Provider: Mary Escobar Consult Reason/Comments: icu patient Do you want consulting provider notified?: Already Contacted 03/27/23 23:35 Consult Physician Urgent Consulting Provider: Gamal Ruvalcaba Consult Reason/Comments: Suicide attempt Do you want consulting provider notified?: Yes, Notify in am Primary care physician: Stated None Hospital Course: 37 year old male with schizoaffective disorder, chronic low back pain presented to the ED for lethargy and recurrent diarrhea. Patient had claimed he took an entire bottle of Ester pills in an intentional overdose. In the ED, he was noted to be tachycardic with heart rate in the 100s. CBC showed leukocytosis of 12.3. Coagulation panel within normal limits. CMP showed sodium 134, BUN of 7, creatinine of 0.65, glucose of 63. Lactic acid negative. Salicylate, alcohol and acetaminophen negative. UDS positive for benzodiazepine and marijuana. Ester level elevated at 5.3. Right femoral dialysis catheter was inserted and patient was admitted to ICU for further management. He underwent emergent hemodialysis on 03/27. Dialysis catheter was discontinued on 03/28. Ester levels normalized. 03/31 Patient was seen and examined. No acute events overnight. Patient reports increased anxiety. Sitter at bedside. He will be transferred to [facility] in [place], [place]. Pertinent procedures include dialysis catheter placement. General: non toxic, no distress, appears at stated age Derm: warm, dry Head: atraumatic, normocephalic, symmetric Eyes: EOMI, no lid lag, anicteric sclera Cardiovascular: Good distal perfusion in all 4 extremities Lungs: no accessory muscle use Ext: no gross muscle atrophy, no edema, no contractures Neuro: no focal neuro deficits Psych: Alert, oriented, appropriate affect Discharge Diagnosis: Ester overdose Hypokalemia Suicidal ideation History of schizoaffective disorder and depression This complex discharge took 35 minutes to complete. Patient Condition at Discharge: Critical Plan - Discharge Summary Discharge Rx Participant: Yes New Discharge Prescriptions: New Melatonin 5 mg PO HS tab Pantoprazole [Protonix] 40 mg PO DAILY@0630 tab chlorproMAZINE [Thorazine] 25 mg PO QID tab ALPRAZolam [Xanax] 1 mg PO 0630,1600,2200 tab Continue Magnesium Hydroxide [Milk of Magnesia Concentrate] 2,400 mg PO DAILY PRN ml PRN Reason: Constipation Ondansetron Odt [Zofran ODT] 4 mg PO Q8HR PRN #15 tab PRN Reason: Nausea And Vomiting Mag Hydrox/Al Hydrox/Simeth [Maalox] 30 ml PO Q4HR PRN ml PRN Reason: Gi Upset Discontinued Haloperidol Decanoate [Haldol D] 200 mg IM Q14D 1 Days #1 each Ester Carbonate ER [Lithobid] 900 mg PO HS 7 Days #14 tab Venlafaxine HCl [Effexor] 50 mg PO DIRECTED Discharge Medication List Mag Hydrox/Al Hydrox/Simeth [Maalox] 30 ml PO Q4HR PRN ml 03/13/23 [Rx] Magnesium Hydroxide [Milk of Magnesia Concentrate] 2,400 mg PO DAILY PRN ml 03/13/23 [Rx] Ondansetron Odt [Zofran ODT] 4 mg PO Q8HR PRN #15 tab 03/27/23 [Rx] ALPRAZolam [Xanax] 1 mg PO 0630,1600,2200 tab 03/31/23 [Rx] Melatonin 5 mg PO HS tab 03/31/23 [Rx] Pantoprazole [Protonix] 40 mg PO DAILY@0630 tab 03/31/23 [Rx] chlorproMAZINE [Thorazine] 25 mg PO QID tab 03/31/23 [Rx] Follow up Appointment(s)/Referral(s): None,Stated [Primary Care Provider] - 1-2 days Discharge Disposition: TRANSFER TO PSYCH HOSP/UNIT
[2023-03-31] MEDS ORDERED: ALPRAZolam 1 MG TAB PO SCH (16:00)
[2023-03-31 16:32] VITALS: BP 116/72; PULSE 73; RESP 15; TEMP 98
[2023-03-31] MEDS ORDERED: HYDROcodone/APAP 5-325MG 1 EACH TAB PO STA (18:50)
--- NOTE | 2023-03-31 19:31 | P.PN ---
Subjective Patient is seen for follow-up for lithium toxicity. He was dialyzed as lithium level was 5.3 on initial admission. Dialysis catheter was removed. Baltic level is down to 0.7. Patient is laying in bed he is comfortable denies any significant complaints. Patient has been voiding. IV fluids discontinued. Tolerating oral intake. Objective - Vital Signs Vital signs: Vital Signs Temp 98.0 F 03/31/23 14:55 Pulse 73 03/31/23 14:55 Resp 15 03/31/23 14:55 BP 116/72 03/31/23 14:55 Pulse Ox 96 03/31/23 14:55 FiO2 Intake & Output 03/31/23 03/31/23 04/01/23 06:59 18:59 06:59 Other: # Voids 2 6 - Exam Awake comfortable not in any acute distress, alert oriented 3 Examination of the heart S1 and S2 Examination of the lungs bilateral breath sounds are heard Abdomen is soft nontender Examination of lower extremity shows no edema Appears euvolemic SUPERVISOR TILE AND MOTTLE exam grossly intact - Labs CBC & Chem 7: 03/29/23 05:38 03/31/23 07:39 Labs: Abnormal Lab Results - Last 24 Hours (Table) 03/31/23 Range/Units 07:39 Anion Gap 9.30 L (10.00-18.00) mmol/L BUN 5.7 L (9.0-27.0) mg/dL BUN/Creatinine Ratio 7.32 L (12.00-20.00) Ratio Glucose 119 H (70-110) mg/dL Total Bilirubin <0.15 L (0.30-1.20) mg/dL Albumin 3.6 L (3.8-4.9) g/dL Albumin/Globulin Ratio 1.33 L (1.60-3.17) g/dL Assessment and Plan Assessment: 1. Baltic toxicity with intentional overdose and suicide attempt status post hemodialysis 1 as level was 5.3. Dialysis catheter has been removed 2. Suicide attempt with previous history of intentional suicide with Effexor 3. Schizoaffective disorder 4. History of alcohol abuse 5. Positive drug screen for marijuana and benzodiazepines Plan: Treatment per psych. Continue off of IV fluids Will sign off.
[2023-04-01] MEDS ORDERED: PANTOPRAZOLE 40 MG TABLET PO SCH (06:30)
== END 2023-03-31 19:52 | DRG 817 ==
LOC: EC 15:45 → 2SICU 18:45 → 4SSUR 03-28 20:01
PROVIDERS: ADMIT Internal Medicine; ATTEND Internal Medicine
PROC: 06HY33Z Insertion of Infusion Device into Lower Vein, Percutaneous Approach (ICD-10-PCS; principal; 2023-03-27)
PROC: 5A1D70Z Performance of Urinary Filtration, Intermittent, Less than 6 Hours Per Day (ICD-10-PCS; 2023-03-27)
DX: T43.592A Poisoning by other antipsychotics and neuroleptics, intentional self-harm, initial encounter (principal); E23.2 Diabetes insipidus; F25.1 Schizoaffective disorder, depressive type; F15.10 Other stimulant abuse, uncomplicated; F31.9 Bipolar disorder, unspecified; F14.10 Cocaine abuse, uncomplicated; Z20.822 Contact with and (suspected) exposure to COVID-19; F12.10 Cannabis abuse, uncomplicated; I10 Essential (primary) hypertension; K76.9 Liver disease, unspecified; N14.19 Nephropathy induced by other drugs, medicaments and biological substances; F10.10 Alcohol abuse, uncomplicated; K21.9 Gastro-esophageal reflux disease without esophagitis; M54.50 Low back pain, unspecified; G89.29 Other chronic pain; F17.210 Nicotine dependence, cigarettes, uncomplicated; E16.2 Hypoglycemia, unspecified; Y90.0 Blood alcohol level of less than 20 mg/100 ml; Z91.198 Patient's noncompliance with other medical treatment and regimen for other reason; Z79.899 Other long term (current) drug therapy; Z76.5 Malingerer [conscious simulation]; Z56.0 Unemployment, unspecified; Z59.00 Homelessness unspecified; Z71.51 Drug abuse counseling and surveillance of drug abuser; Z71.41 Alcohol abuse counseling and surveillance of alcoholic; Z71.6 Tobacco abuse counseling; Z86.19 Personal history of other infectious and parasitic diseases
CPT/HCPCS: 36415; 80048; 80053; 80143; 80178; 80179; 80306; 80320; 82075; 83605; 83735; 83930; 84100; 85025; 85610; 85730; 87635; 90935; 93005; 94760; 96361; 96374; 99291

== ENCOUNTER 2023-04-30 20:48 | Inpatient (IN) | payer MEDICAID, OTHER ==
[2023-04-30] MEDS ORDERED: SODIUM CHLORIDE 0.9% 1,000 ML IV STA (21:09)
--- NOTE | 2023-04-30 21:27 | ED ---
Overdose HPI - General Chief Complaint: Overdose Stated Complaint: Mental Health Time Seen by Provider: 04/30/23 20:52 Source: patient, EMS, RN notes reviewed Mode of arrival: EMS Limitations: no limitations - History of Present Illness Initial Comments: 37-year-old male presents emergency Department with chief complaint of drug overdose. Patient reportedly took 60 BuSpar tablets that he picked up yesterday as his prescription. Patient states he did this to harm himself. Patient states is depressed, suicidal. Dies any alcohol or drug use currently but does have a history. Patient has no specific complaints denies abdominal pain no chest pain or shortness breath. - Related Data Home Medications Medication Instructions Recorded Confirmed Benztropine Mesylate [Cogentin] 0.5 mg PO BID 04/30/23 04/30/23 Gabapentin [Neurontin] 400 mg PO TID 04/30/23 04/30/23 Haloperidol Decanoate [Haldol D] 150 mg IM Q14D 04/30/23 04/30/23 OLANZapine [ZyPREXA] 20 mg PO HS 04/30/23 04/30/23 QUEtiapine [SEROquel] 200 mg PO HS 04/30/23 04/30/23 hydrOXYzine pamoate [Vistaril] 50 mg PO TID 04/30/23 04/30/23 Allergies Allergy/AdvReac Type Severity Reaction Status Date / Time No Known Allergies Allergy Verified 04/30/23 21:29 Review of Systems ROS Statement: Those systems with pertinent positive or pertinent negative responses have been documented in the HPI. ROS Other: All systems not noted in ROS Statement are negative. Past Medical History Past Medical History: No Reported History, Unable to Obtain, GERD/Reflux, Hypertension, Liver Disease Additional Past Medical History / Comment(s): Hepatitis C, DDD, back pain, bilateral carpel tunnel syndrome. He reports that he has heart disease that was found when he had kidney problems but he denies having a stress test or cardiac catheterization. History of Any Multi-Drug Resistant Organisms: None Reported MDRO Source:: unknown Past Surgical History: No Surgical Hx Reported, Unable to Obtain Additional Past Surgical History / Comment(s): Pt states he has had numerous "cysts" removed from where he injected IV drugs. Past Anesthesia/Blood Transfusion Reactions: No Reported Reaction, Unable to Obtain Additional Past Anesthesia/Blood Transfusion Reaction / Comment(s): Pt states he has never had surgery. Past Psychological History: Anxiety, Bipolar, Depression Smoking Status: Current every day smoker Past Alcohol Use History: Occasional Past Drug Use History: Heroin, Marijuana, Methamphetamine - Past Family History Mother Family Medical History: Unable to Obtain, Rheumatoid Arthritis (RA) Additional Family Medical History / Comment(s): Mother is . Father Family Medical History: Coronary Artery Disease (CAD) General Exam Limitations: no limitations General appearance: alert, in no apparent distress Head exam: Present: atraumatic, normocephalic, normal inspection Eye exam: Present: normal appearance, PERRL, EOMI. Absent: scleral icterus, conjunctival injection, periorbital swelling ENT exam: Present: normal exam, normal oropharynx, mucous membranes moist Neck exam: Present: normal inspection, full ROM. Absent: tenderness, meningismus, lymphadenopathy Respiratory exam: Present: normal lung sounds bilaterally. Absent: respiratory distress, wheezes, rales, rhonchi, stridor Cardiovascular Exam: Present: regular rate, normal rhythm, normal heart sounds. Absent: systolic murmur, diastolic murmur, rubs, gallop, clicks GI/Abdominal exam: Present: soft, normal bowel sounds. Absent: distended, tenderness, guarding, rebound, rigid Neurological exam: Present: alert Psychiatric exam: Present: depressed Skin exam: Present: warm, dry, intact, normal color. Absent: rash Course Vital Signs 04/30/23 04/30/23 04/30/23 20:49 22:24 23:49 Temperature 98.3 F 97.8 F Pulse Rate 73 66 69 Respiratory 16 14 18 Rate Blood Pressure 173/107 142/87 134/82 O2 Sat by Pulse 98 97 98 Oximetry Medical Decision Making - Medical Decision Making Was pt. sent in by a medical professional or institution (, PA, MONOTYPER, urgent care, hospital, or retirement...) When possible be specific @ -No Did you speak to anyone other than the patient for history (EMS, parent, family, police, friend...)? What history was obtained from this source @ -No Did you review nursing and triage notes (agree or disagree)? Why? @ -I reviewed and agree with nursing and triage notes Were old charts reviewed (outside hosp., previous admission, EMS record, old EKG, old radiological studies, urgent care reports/EKG's, retirement records)? Report findings @ -Reviewed prior psychiatric admissions Differential Diagnosis (chest pain, altered mental status, abdominal pain women, abdominal pain men, vaginal bleeding, weakness, fever, dyspnea, syncope, headache, dizziness, GI bleed, back pain, seizure, CVA, palpatations, mental health, musculoskeletal)? @ -Depression, suicidal ideation, drug overdose, EKG interpreted by me (3pts min.). @ -[Sinus rhythm rate of 74 GA 147 QRS 96 QT/ QTC 369/397 X-rays interpreted by me (1pt min.). @ -None done CT interpreted by me (1pt min.). @ -None done U/S interpreted by me (1pt. min.). @ -None done What testing was considered but not performed or refused? (CT, X-rays, U/S, labs)? Why? @ -None What meds were considered but not given or refused? Why? @ -None Did you discuss the management of the patient with other professionals (professionals i.e. , PA, MONOTYPER, lab, RT, psych nurse, social services technician, theatrical dresser, teacher, juvenile officer, case checker)? Give summary @ -EPS/psychiatry who evaluated the patient recommended inpatient treatment, poison control was contacted and recommendations of observation were given Was smoking cessation discussed for >3mins.? @ -No Was critical care preformed (if so, how long)? @ -No Were there social determinants of health that impacted care today? How? (Homelessness, low income, unemployed, alcoholism, drug addiction, transportation, low edu. Level, literacy, decrease access to med. care, [facility], rehab)? @ -No Was there de-escalation of care discussed even if they declined (Discuss DNR or withdrawal of care, Hospice)? DNR status @ -No What co-morbidities impacted this encounter? (DM, HTN, Smoking, COPD, CAD, Cancer, CVA, ARF, Chemo, Hep., AIDS, mental health diagnosis, sleep apnea, morbid obesity)? @ -Drug abuse, psychiatric history Was patient admitted / discharged? Hospital course, mention meds given and route, prescriptions, significant lab abnormalities, going to OR and other pertinent info. @ -Admitted patient was evaluated by EPS patient will be admitted for psychiatric treatment Undiagnosed new problem with uncertain prognosis? @ -No Drug Therapy requiring intensive monitoring for toxicity (Heparin, Nitro, Insulin, Cardizem)? @ -No Were any procedures done? @ -No Diagnosis/symptom? @ -Drug overdose, depression, suicidal ideation Acute, or Chronic, or Acute on Chronic? @ -Acute Uncomplicated (without systemic symptoms) or Complicated (systemic symptoms)? @ -Uncomplicated Side effects of treatment? @ -No Exacerbation, Progression, or Severe Exacerbation? @ -No Poses a threat to life or bodily function? How? (Chest pain, USA, VT, pneumonia, PE, COPD, DKA, ARF, appy, cholecystitis, CVA, Diverticulitis, Homicidal, Suicidal, threat to staff... and all critical care pts) @ -Yes patient is suicidal - Lab Data Result diagrams: 04/30/23 21:50 04/30/23 21:50 Lab Results 04/30/23 04/30/23 04/30/23 Range/Units 21:38 21:50 21:50 WBC 9.0 (3.8-10.6) k/uL RBC 4.58 (4.30-5.90) m/uL Hgb 12.9 L (13.0-17.5) gm/dL Hct 38.0 L (39.0-53.0) % MCV 82.9 D (80.0-100.0) fL MCH 28.2 (25.0-35.0) pg MCHC 34.0 (31.0-37.0) g/dL RDW 13.6 (11.5-15.5) % Plt Count 194 D (150-450) k/uL MPV 9.2 Neutrophils % 68 % Lymphocytes % 23 % Monocytes % 6 % Eosinophils % 1 % Basophils % 0 % Neutrophils # 6.1 (1.3-7.7) k/uL Lymphocytes # 2.1 (1.0-4.8) k/uL Monocytes # 0.5 (0-1.0) k/uL Eosinophils # 0.1 (0-0.7) k/uL Basophils # 0.0 (0-0.2) k/uL Sodium 137 (137-145) mmol/L Potassium 3.9 (3.5-5.1) mmol/L Chloride 104 (98-107) mmol/L Carbon Dioxide 25 (22-30) mmol/L Anion Gap 8 mmol/L BUN 11 (9-20) mg/dL Creatinine 0.55 L (0.66-1.25) mg/dL Est GFR (CKD-EPI)AfAm >90 (>60 ml/min/1.73 sqM) Est GFR (CKD-EPI)NonAf >90 (>60 ml/min/1.73 sqM) Glucose 111 H (74-99) mg/dL Calcium 9.1 (8.4-10.2) mg/dL Total Bilirubin 0.4 (0.2-1.3) mg/dL AST 33 (17-59) U/L ALT 21 (4-49) U/L Alkaline Phosphatase 45 (38-126) U/L Total Protein 7.0 (6.3-8.2) g/dL Albumin 3.8 (3.5-5.0) g/dL Salicylates <1.0 mg/dL Urine Opiates Screen Not Detected (NotDetected) Ur Oxycodone Screen Not Detected (NotDetected) Urine Methadone Screen Not Detected (NotDetected) Ur Propoxyphene Screen Not Detected (NotDetected) Acetaminophen <10.0 ug/mL Ur Barbiturates Screen Not Detected (NotDetected) U Tricyclic Antidepress Not Detected (NotDetected) Ur Phencyclidine Scrn Not Detected (NotDetected) Ur Amphetamines Screen Detected H (NotDetected) U Methamphetamines Scrn Not Detected (NotDetected) U Benzodiazepines Scrn Not Detected (NotDetected) Urine Cocaine Screen Not Detected (NotDetected) U Marijuana (THC) Screen Detected H (NotDetected) Disposition Clinical Impression: Depression, Drug overdose, Suicidal behavior Disposition: TRANSFER TO PSYCH HOSP/UNIT Referrals: Nonstaff,Physician [Primary Care Provider] - 1-2 days Time of Disposition: 00:05
[2023-04-30 22:03] LABS: Basophils % (A) 0 %; Eosinophils # (A) 0.1 k/uL (0-0.7); Eosinophils % (A) 1 %; HGB 12.9 gm/dL (13.0-17.5); Lymphocytes # (A) 2.1 k/uL (1.0-4.8); Lymphocytes % (A) 23 %; MCH 28.2 pg (25.0-35.0); Mean Platelet Volume 9.2; Monocytes # (A) 0.5 k/uL (0-1.0); Monocytes % (A) 6 %; Neutrophils # (A) 6.1 k/uL (1.3-7.7); Neutrophils % (A) 68 %; RBC 4.58 m/uL (4.30-5.90); RDW 13.6 % (11.5-15.5)
[2023-04-30 22:08] LABS: MCV 82.9 fL (80.0-100.0); Platelet Count 194 k/uL (150-450)
[2023-04-30 22:17] LABS: Amphetamine Screen,Urine Detected (NotDetected); Barbiturate Screen,Urine Not Detected (NotDetected); Benzodiazepines Screen,Urine Not Detected (NotDetected); Cocaine Screen,Urine Not Detected (NotDetected); Methadone Screen, Urine Not Detected (NotDetected); Opiate Screen,Urine Not Detected (NotDetected); Oxycodone Screen, Urine Not Detected (NotDetected); Phencyclidine Screen,Urine Not Detected (NotDetected); Tricyclic Antidepressant,Urine Not Detected (NotDetected); Urn Cannabinoid Scrn Detected (NotDetected)
[2023-04-30 22:27] LABS: ALT 21 U/L (4-49); AST 33 U/L (17-59); Acetaminophen <10.0 ug/mL; African American GFR (CKD) >90 (>60 ml/min/1.73 sqM); Albumin 3.8 g/dL (3.5-5.0); Alkaline Phosphatase 45 U/L (38-126); Anion Gap 8 mmol/L; Blood Urea Nitrogen 11 mg/dL (9-20); Calcium 9.1 mg/dL (8.4-10.2); Carbon Dioxide 25 mmol/L (22-30); Chloride 104 mmol/L (98-107); Glucose 111 mg/dL (74-99); Non-African American GFR(CKD) >90 (>60 ml/min/1.73 sqM); Potassium 3.9 mmol/L (3.5-5.1); Salicylate <1.0 mg/dL; Sodium 137 mmol/L (137-145); Total Bilirubin 0.4 mg/dL (0.2-1.3)
[2023-05-01] MEDS ORDERED: haloperidoL 5 MG TAB PO PRN (00:42)
[2023-05-01] MEDS ORDERED: ACETAMINOPHEN TAB 325 MG TAB PO PRN (00:42)
[2023-05-01] MEDS ORDERED: HALOPERIDOL LACTATE 5 MG/ML 1 ML VIAL IM PRN (00:42)
[2023-05-01] MEDS ORDERED: MAG HYDROX/AL HYDROX/SIMETH 30 ML CUP PO PRN (00:42)
[2023-05-01] MEDS ORDERED: LORazepam 1 MG TAB PO PRN (00:42)
[2023-05-01] MEDS ORDERED: LORazepam 2 MG/ML INJ IM PRN (00:42)
[2023-05-01] MEDS ORDERED: MAGNESIUM HYDROXIDE 2,400 MG/10 ML CUP PO PRN (00:42)
[2023-05-01] MEDS: NICOTINE 14MG/24HR PATCH TRANSDERM SCH ×2 (08:51→08:52)
--- NOTE | 2023-05-01 11:40 | P.HP ---
Psychiatric H&P - . H&P Date: 05/01/23 History & Physical: Allergies Allergy/AdvReac Type Severity Reaction Status Date / Time No Known Allergies Allergy Verified 04/30/23 21:29 Vital Signs Temp 97.8 F 05/01/23 08:05 Pulse 89 05/01/23 08:05 Resp 18 05/01/23 01:18 BP 177/97 05/01/23 08:05 Pulse Ox 96 05/01/23 01:18 FiO2 Intake & Output 04/30/23 05/01/23 05/01/23 18:59 06:59 18:59 Weight 96.842 kg Laboratory Last Values WBC 9.0 k/uL (3.8-10.6) 04/30/23 21:50 RBC 4.58 m/uL (4.30-5.90) 04/30/23 21:50 Hgb 12.9 gm/dL (13.0-17.5) L 04/30/23 21:50 Hct 38.0 % (39.0-53.0) L 04/30/23 21:50 MCV 82.9 fL (80.0-100.0) D 04/30/23 21:50 MCH 28.2 pg (25.0-35.0) 04/30/23 21:50 MCHC 34.0 g/dL (31.0-37.0) 04/30/23 21:50 RDW 13.6 % (11.5-15.5) 04/30/23 21:50 Plt Count 194 k/uL (150-450) D 04/30/23 21:50 MPV 9.2 04/30/23 21:50 Neutrophils % 68 % 04/30/23 21:50 Lymphocytes % 23 % 04/30/23 21:50 Monocytes % 6 % 04/30/23 21:50 Eosinophils % 1 % 04/30/23 21:50 Basophils % 0 % 04/30/23 21:50 Neutrophils # 6.1 k/uL (1.3-7.7) 04/30/23 21:50 Lymphocytes # 2.1 k/uL (1.0-4.8) 04/30/23 21:50 Monocytes # 0.5 k/uL (0-1.0) 04/30/23 21:50 Eosinophils # 0.1 k/uL (0-0.7) 04/30/23 21:50 Basophils # 0.0 k/uL (0-0.2) 04/30/23 21:50 Sodium 137 mmol/L (137-145) 04/30/23 21:50 Potassium 3.9 mmol/L (3.5-5.1) 04/30/23 21:50 Chloride 104 mmol/L (98-107) 04/30/23 21:50 Carbon Dioxide 25 mmol/L (22-30) 04/30/23 21:50 Anion Gap 8 mmol/L 04/30/23 21:50 BUN 11 mg/dL (9-20) 04/30/23 21:50 Creatinine 0.55 mg/dL (0.66-1.25) L 04/30/23 21:50 Est GFR (CKD-EPI)AfAm >90 (>60 ml/min/1.73 sqM) 04/30/23 21:50 Est GFR (CKD-EPI)NonAf >90 (>60 ml/min/1.73 sqM) 04/30/23 21:50 Glucose 111 mg/dL (74-99) H 04/30/23 21:50 Calcium 9.1 mg/dL (8.4-10.2) 04/30/23 21:50 Total Bilirubin 0.4 mg/dL (0.2-1.3) 04/30/23 21:50 AST 33 U/L (17-59) 04/30/23 21:50 ALT 21 U/L (4-49) 04/30/23 21:50 Alkaline Phosphatase 45 U/L (38-126) 04/30/23 21:50 Total Protein 7.0 g/dL (6.3-8.2) 04/30/23 21:50 Albumin 3.8 g/dL (3.5-5.0) 04/30/23 21:50 Salicylates <1.0 mg/dL 04/30/23 21:50 Urine Opiates Screen Not Detected (NotDetected) 04/30/23 21:38 Ur Oxycodone Screen Not Detected (NotDetected) 04/30/23 21:38 Urine Methadone Screen Not Detected (NotDetected) 04/30/23 21:38 Ur Propoxyphene Screen Not Detected (NotDetected) 04/30/23 21:38 Acetaminophen <10.0 ug/mL 04/30/23 21:50 Ur Barbiturates Screen Not Detected (NotDetected) 04/30/23 21:38 U Tricyclic Antidepress Not Detected (NotDetected) 04/30/23 21:38 Ur Phencyclidine Scrn Not Detected (NotDetected) 04/30/23 21:38 Ur Amphetamines Screen Detected (NotDetected) H 04/30/23 21:38 U Methamphetamines Scrn Not Detected (NotDetected) 04/30/23 21:38 U Benzodiazepines Scrn Not Detected (NotDetected) 04/30/23 21:38 Urine Cocaine Screen Not Detected (NotDetected) 04/30/23 21:38 U Marijuana (THC) Screen Detected (NotDetected) H 04/30/23 21:38 Coronavirus (PCR) Not Detected (Not Detectd) 05/01/23 00:11 05/01/23 11:26 IDENTIFYING DATA: Patient is a 37-year-old single, homeless, male with significant history of schizoaffective disorder, depressive type who presents to the hospital after a reported intentional overdose on buspar HPI: Patient presented to the hospital initially yesterday after supposedly overdosing on "60 BuSpar tablets" according to ER report. Patient was also endorsing depression and suicidal thoughts. Patient has a long history of schizoaffective disorder depressive type, malingering, poly-substance abuse. Patient is also currently homeless at this time. He supposedly was just discharged from [facility] after being there for several weeks. Patient was seen today laying in his bed and was agreeable to speak to staff writer today for evaluation. Patient appeared to have poor hygiene and grooming, he reported to staff writer that he overdosed on 60 BuSpar tablets. He states that his intent was to kill himself. He claims that his anxiety is "out of control". He claims that he is also feeling depressed at this time. He was fairly focused on obtaining medications for his anxiety and other controlled medications. Patient claims that he is homeless and does not have a place to go. States that he is sleeping fairly at nighttime. He did have mild tremors. He is unsure when he got his last Haldol D injection. Claims of a fair appetite. At this time is denying any auditory or visual hallucinations. He is claiming that he is having suicidal thoughts, no intent or plan, denying any homicidal ideation today. uds is positive for THC and amphetamines. patient states that he drinks accosionally and states that his last drink was more than 5 days ago. PAST PSYCHIATRIC HISTORY: Patient has previous diagnoses of schizoaffective disorder, depressive type, alcohol use disorder, cocaine use disorder, cannabis use disorder, methamphetamine abuse, nicotine dependence. He is currently on Haldol Decanoate 200 mg IM q2 weeks, with his last known dose given on 03/24. He was previously on Seroquel, and BuSpar, BuSpar and several other antipsychotics and psychotropic medications. He was last discharged from our psychiatric unit approximately one month ago and was under the care of Dr Mcmanus. He then proceeded to be admitted and stayed at [facility] for several weeks and was recently discharged. he has a hx of several suicide attempts and drugs overdoses. PMH: Past Medical History: No Reported History, Unable to Obtain, GERD/Reflux, Hypertension, Liver Disease Additional Past Medical History / Comment(s): Hepatitis C, DDD, back pain, bilateral carpel tunnel syndrome. He reports that he has heart disease that was found when he had kidney problems but he denies having a stress test or cardiac catheterization. History of Any Multi-Drug Resistant Organisms: None Reported MDRO Source:: unknown Past Surgical History: No Surgical Hx Reported, Unable to Obtain Additional Past Surgical History / Comment(s): Pt states he has had numerous "cysts" removed from where he injected IV drugs. Past Anesthesia/Blood Transfusion Reactions: No Reported Reaction, Unable to Obtain Additional Past Anesthesia/Blood Transfusion Reaction / Comment(s): Pt states he has never had surgery. Past Psychological History: Anxiety, Depression Smoking Status: Current every day smoker Past Alcohol Use History: None Reported Past Drug Use History: Heroin, Marijuana, Methamphetamine ALLERGIES: NO KNOWN DRUG ALLERGIES CHEMICAL DEPENDENCY HISTORY: Patient uses cocaine, marijuana, methamphetamines, and amphetamines. He is also a daily tobacco user. He reported a heavy history of etoh abuse in the past, states his last drink was more than 5 days ago. currently denying any withdrawal sx except for anxiety FAMILY PSYCHIATRIC/SUBSTANCE USE HISTORY: No reported family psychiatric history SOCIAL HISTORY: Patient is currently homeless. He is . He has his GED. MENTAL STATUS EXAM: General Appearance: Patient appears to be stated age is alert, directable, and attempts to cooperate. Patient appears to have slightly disheveled hygiene and grooming. Behavior: Patient is seated without any agitated behavior. Patient displays medication seeking behavior. Speech: Patient's speech is fluent and nonpressured. Monotone. Mood/Affect: Patient reports their mood is depressed and anxious, affect is constricted Suicidality/Homicidality: Patient endorses suicidal ideation. He denies any homicidal ideation. Perceptions: Patient denies any visual hallucinations and denies any auditory hallucinations Though content/process: There is no evidence of any delusional thought content and thought process is linear and goal-directed. focused on medications. concrete Memory and concentration: AOX3, grossly intact for the purposes of this session. Can spell "WORLD" backwards Judgment and insight: chronically poor/impulsive STRENGTHS/WEAKNESSES: strength is that patient has access to medical care. Weakness is that the patient is a heavy user substances and very poor insight/judgment. INTELLECT: average IMPRESSIONS: Schizoaffective disorder, depressive type Methamphetamine use disorder Cannabis use disorder Alcohol use disorder Nicotine dependence Malingering PLAN: -Patient is admitted under [facility] status to [facility] for stabilization of psychiatric symptoms and safety. -Medications : Will start patient on effexor xr 75 mg daily for mood/anxiety. start haldol PO 5 mg bid and transition patient back onto Haldol Dec. unsure of last dose given. - Vistaril and Haldol PRN for agitation/aggression -Patient was counselled on substance abuse however is pre-contemplative -Patient was informed of the risks, benefits and side effects of the medication and patient verbally consented to taking the medications however did not sign the med consent -Internal Medicine consult to perform medical evaluation and physical. -NRT - nicotine patch -SW on board for discharge planning. Encourage patient to participate in groups to work on coping skills. will look at [facility] group home for dispo.
[2023-05-01] MEDS: haloperidoL 5 MG TAB PO SCH ×2 (12:04→20:52)
[2023-05-01] MEDS: VENLAFAXINE HCL ER 75 MG CAP PO SCH (12:04)
--- NOTE | 2023-05-01 13:16 | P.MHFACE ---
Face to Face Restrain/Seclus - Evaluation Patient's Immediate Situation: Endangers self safety Patient's Reaction to the Intervention: Uncooperative, Nervous, Anxious Patient's Reaction to the Intervention - Comment: patient was attempting to harm himself by allegedly "hitting my head" accroding to patient. patient is also demonstrating manipulative and med seeking behvrs. Patient's Medical & Behavioral Condition: Awake, Alert, Anxious Need to Continue or Terminate Restraint or Seclusion: Continue Face to Face Eval of Restraint Date: 05/01/23 Face to Face Eval of Restraint Time: 12:50
[2023-05-01] MEDS ORDERED: chlorproMAZINE 25 MG/ML 2 ML AMP IM PRN (13:18)
[2023-05-01] MEDS: hydrOXYzine pamoate 25 MG CAP PO PRN (13:33)
--- NOTE | 2023-05-01 17:38 | P.CONS ---
History of Present Illness - Reason for Consult Consult date: 05/01/23 - History of Present Illness Patient is a 37-year-old male with no PMH that presents the ED for mental health concerns. Patient has been admitted to the mental health unit for further management of symptoms. [facility] has been consulted for medical management of this patient Patient denies any complaints today. He has a one to one sitter at bedside. General: non toxic, no distress, appears at stated age Derm: warm, dry Head: atraumatic, normocephalic, symmetric Eyes: EOMI, no lid lag, anicteric sclera Cardiovascular: S1S2 reg, no murmur Lungs: CTA bilateral, no rhonchi, no rales , no accessory muscle use Ext: no gross muscle atrophy, no edema, no contractures Neuro: CN 2-12 grossly intact, no focal neuro deficits Psych: Alert, oriented, appropriate affect Normocytic anemia Amphetamine abuse Marijuana abuse CBC shows hemoglobin 12.9. BMP shows creatinine of 0.55 and glucose 111. Salicylate and acetaminophen level negative. UDS positive for amphetamine and marijuana. COVID-19 negative. Monitor hemoglobin. No signs of active bleeding. Transfuse if Hg < 7.0. Patient encouraged to quit illicit substances. Past Medical History Past Medical History: No Reported History, Unable to Obtain, GERD/Reflux, Hypertension, Liver Disease Additional Past Medical History / Comment(s): Hepatitis C, DDD, back pain, bilateral carpel tunnel syndrome. He reports that he has heart disease that was found when he had kidney problems but he denies having a stress test or cardiac catheterization. History of Any Multi-Drug Resistant Organisms: None Reported MDRO Source:: unknown Past Surgical History: No Surgical Hx Reported, Unable to Obtain Additional Past Surgical History / Comment(s): Pt states he has had numerous "cysts" removed from where he injected IV drugs. Past Anesthesia/Blood Transfusion Reactions: No Reported Reaction, Unable to Obtain Additional Past Anesthesia/Blood Transfusion Reaction / Comm: Pt states he has never had surgery. Smoking Status: Current every day smoker - Past Family History Mother Family Medical History: Unable to Obtain, Rheumatoid Arthritis (RA) Additional Family Medical History / Comment(s): Mother is . Father Family Medical History: Coronary Artery Disease (CAD) Medications and Allergies Home Medications Medication Instructions Recorded Confirmed Type Benztropine Mesylate [Cogentin] 0.5 mg PO BID 04/30/23 04/30/23 History Gabapentin [Neurontin] 400 mg PO TID 04/30/23 04/30/23 History Haloperidol Decanoate [Haldol D] 150 mg IM Q14D 04/30/23 04/30/23 History OLANZapine [ZyPREXA] 20 mg PO HS 04/30/23 04/30/23 History QUEtiapine [SEROquel] 200 mg PO HS 04/30/23 04/30/23 History hydrOXYzine pamoate [Vistaril] 50 mg PO TID 04/30/23 04/30/23 History Allergies Allergy/AdvReac Type Severity Reaction Status Date / Time No Known Allergies Allergy Verified 04/30/23 21:29 Physical Exam Vitals: Vital Signs Temp Pulse Pulse Resp BP BP Pulse Ox 05/01/23 12:45 98 F 75 18 148/94 95 05/01/23 08:05 97.8 F 89 177/97 05/01/23 01:18 96.0 F L 81 18 164/101 96 04/30/23 23:49 97.8 F 69 18 134/82 98 04/30/23 22:24 66 14 142/87 97 04/30/23 20:49 98.3 F 73 16 173/107 98 Intake and Output 05/01/23 05/01/23 05/01/23 06:59 14:59 22:59 Other: Weight 96.842 kg Results CBC & Chem 7: 04/30/23 21:50 04/30/23 21:50 Labs: Abnormal Lab Results - Last 24 Hours (Table) 04/30/23 04/30/23 04/30/23 Range/Units 21:38 21:50 21:50 Hgb 12.9 L (13.0-17.5) gm/dL Hct 38.0 L (39.0-53.0) % Creatinine 0.55 L (0.66-1.25) mg/dL Glucose 111 H (74-99) mg/dL Ur Amphetamines Screen Detected H (NotDetected) U Marijuana (THC) Screen Detected H (NotDetected)
[2023-05-02] MEDS: NICOTINE 14MG/24HR PATCH TRANSDERM SCH (07:43)
[2023-05-02] MEDS: VENLAFAXINE HCL ER 75 MG CAP PO SCH (07:44)
[2023-05-02] MEDS: hydrOXYzine pamoate 25 MG CAP PO PRN ×2 (07:44→15:21)
[2023-05-02] MEDS: haloperidoL 5 MG TAB PO SCH ×2 (07:44→21:23)
--- NOTE | 2023-05-02 11:34 | P.PN ---
Progress Note - Text Progress Note Date: 05/02/23 Interval History: Patient was seen laying in bed today and was directable and agreeable to speak with designer/writer. Patient claims that he was feeling tired this morning. He states that he is sorry about yesterday demanding medications. He was less focused today on obtaining prn medications and did not offer any overnight complaints. We spoke about the different when necessary options. He continues to have very poor insight and judgment which appears to be chronic, hygiene and grooming mildly improving since yesterday. Patient has been taking his medications. He continues to state that he does not remember when he took the Haldol shot at [employer]. At this time patient denies any suicidal or homical ideations, intent or plan. Patient denies any auditory, visual hallucinations. Patient denies any side effects from the medications and has been compliant with meds. Mental Status Exam: General Appearance: Patient appears to be stated age is alert, directable, and attempts to cooperate. Patient appears to have mildly disheveled hygiene and grooming, improving mildly. Behavior: Patient is seated without any agitated behavior. Patient displays less medication seeking behavior. Speech: Patient's speech is fluent and nonpressured. Monotone. Mood/Affect: Patient reports their mood is improving mildly, affect is constricted Suicidality/Homicidality: Patient endorses suicidal ideation. He denies any homicidal ideation. Perceptions: Patient denies any visual hallucinations and denies any auditory hallucinations Though content/process: There is no evidence of any delusional thought content. focused on medications. concrete, poverty of content Memory and concentration: AOX3, grossly intact for the purposes of this session Judgment and insight: chronically poor/impulsive, improving mildly IMPRESSIONS: Schizoaffective disorder, depressive type Methamphetamine use disorder Cannabis use disorder Alcohol use disorder Nicotine dependence Malingering PLAN: -Patient is admitted under involuntary MHU for stabilization of psychiatric symptoms and safety. -Medications : increase effexor xr 150 mg daily for mood/anxiety. haldol PO 5 mg bid and transition patient back onto Haldol Dec. according to [facility] note on 04/27 he apparently received Haldol Dec 150 mg IM at some point during hospitalization and will apparently be due for his next dose on 05/11. plan will be to likely increase the dose to 200 mg IM and give dose earlier. - Vistaril and Haldol PRN for agitation/aggression -NRT - nicotine patch -SW on board for discharge planning. Encourage patient to participate in groups to work on coping skills. will look at [facility] living for dispo. awaiting deferral and court hearing date.
[2023-05-02] MEDS: chlorproMAZINE 25 MG TAB PO PRN ×2 (15:21→21:23)
[2023-05-03] MEDS: NICOTINE 14MG/24HR PATCH TRANSDERM SCH (07:56)
[2023-05-03] MEDS: hydrOXYzine pamoate 25 MG CAP PO PRN ×2 (07:56→16:42)
[2023-05-03] MEDS: haloperidoL 5 MG TAB PO SCH ×2 (07:56→20:33)
[2023-05-03] MEDS: chlorproMAZINE 25 MG TAB PO PRN ×2 (07:56→16:42)
[2023-05-03] MEDS: VENLAFAXINE HCL ER 150 MG CAP PO SCH (07:56)
--- NOTE | 2023-05-03 12:15 | P.PN ---
Progress Note - Text Progress Note Date: 05/03/23 Interval History: Patient was seen laying in bed today and was directable and agreeable to speak with card writer hand. Patient claims that he is doing a bit better today. He claims that he has not been going to many groups at this time. He states that he does not know where she will go upon discharge however did express interest in going to [facility] in [place] and states that he did well previously or bleed they're in the past. We spoke about transitioning onto the Haldol D injection which she was okay with will likely do that early next week. He is not reporting any problems with his medications. Claims that his anxiety and mood have been mildly improving. He continues to have very poor insight and judgment which appears to be chronic, hygiene and grooming mildly improving. Patient has been taking his medications. At this time patient denies any suicidal or homical ideations, intent or plan. Patient denies any auditory, visual hallucinations. Patient denies any side effects from the medications and has been compliant with meds. Mental Status Exam: General Appearance: Patient appears to be stated age is alert, directable, and attempts to cooperate. Patient appears to have mildly disheveled hygiene and grooming, improving mildly. Behavior: Patient is seated without any agitated behavior. Less focused on medications today. Speech: Patient's speech is fluent and nonpressured. Monotone. Mood/Affect: Patient reports their mood is improving mildly, affect is constricted Suicidality/Homicidality: Patient endorses suicidal ideation. He denies any homicidal ideation. Perceptions: Patient denies any visual hallucinations and denies any auditory hallucinations Though content/process: There is no evidence of any delusional thought content. focused on medications. concrete, poverty of content Memory and concentration: AOX3, grossly intact for the purposes of this session Judgment and insight: chronically poor/impulsive, improving mildly IMPRESSIONS: Schizoaffective disorder, depressive type Methamphetamine use disorder Cannabis use disorder Alcohol use disorder Nicotine dependence Malingering PLAN: -Patient is admitted under involuntary MHU for stabilization of psychiatric symptoms and safety. Patient deferred. -Medications : effexor xr 150 mg daily for mood/anxiety. haldol PO 5 mg bid and transition patient back onto Haldol Dec. according to [facility] note on 04/27 he apparently received Haldol Dec 150 mg IM at some point during hospitalization and will apparently be due for his next dose on 05/11. plan will be to likely increase the dose to 200 mg IM and give dose earlier, likely early next week and resume patient back on the [id number] schedule. - Vistaril and Haldol PRN for agitation/aggression -NRT - nicotine patch -SW on board for discharge planning. Encourage patient to participate in groups to work on coping skills. will look at [facility] vs long-term for dispo. patient deferred with his patent prosecution attorney.
[2023-05-04] MEDS: chlorproMAZINE 25 MG TAB PO PRN ×2 (08:14→14:02)
[2023-05-04] MEDS: haloperidoL 5 MG TAB PO SCH ×2 (08:14→22:53)
[2023-05-04] MEDS: hydrOXYzine pamoate 25 MG CAP PO PRN (08:14)
[2023-05-04] MEDS: NICOTINE 14MG/24HR PATCH TRANSDERM SCH (08:14)
[2023-05-04] MEDS: VENLAFAXINE HCL ER 150 MG CAP PO SCH (08:14)
--- NOTE | 2023-05-04 10:29 | P.PN ---
Progress Note - Text Progress Note Date: 05/04/23 Interval History: Patient was seen laying in bed today and was directable and agreeable to speak with procedure writer. Patient appears to have mild improvement in his hygiene and grooming today. Patient claims that he is doing a bit better today. He continues to be fairly concrete and superficial in his responses. He claims that he has not been going to many groups at this time and remains disinterested in this. We continued to speak about the different options for patient to be discharged to and he states that he is okay with going back to [facility] if he is accepted. We spoke about transitioning onto the Haldol D injection which she was okay with. He is not reporting any problems with his medications continues to be compliant. Claims that his anxiety and mood have been mildly improving. He continues to have very poor insight and judgment which appears to be chronic. Patient has been taking his medications. At this time patient denies any suicidal or homical ideations, intent or plan. Patient denies any auditory, visual hallucinations. Patient denies any side effects from the medications and has been compliant with meds. Mental Status Exam: General Appearance: Patient appears to be stated age is alert, directable, and attempts to cooperate. Patient appears to have mildly disheveled hygiene and grooming, improving mildly. Behavior: Patient is seated without any agitated behavior. Less focused on medications today. Speech: Patient's speech is fluent and nonpressured. Monotone. [place] Mood/Affect: Patient reports their mood is improving mildly, affect is constricted Suicidality/Homicidality: Patient endorses suicidal ideation. He denies any homicidal ideation. Perceptions: Patient denies any visual hallucinations and denies any auditory hallucinations Though content/process: There is no evidence of any delusional thought content. focused on medications. concrete, poverty of content Memory and concentration: AOX3, grossly intact for the purposes of this session Judgment and insight: chronically poor/impulsive, improving mildly IMPRESSIONS: Schizoaffective disorder, depressive type Methamphetamine use disorder Cannabis use disorder Alcohol use disorder Nicotine dependence Malingering PLAN: -Patient is admitted under involuntary MHU for stabilization of psychiatric symptoms and safety. Patient deferred. -Medications : effexor xr 150 mg daily for mood/anxiety. haldol PO 5 mg bid and transition patient back onto Haldol Dec. according to [facility] note on 04/27 he apparently received Haldol Dec 150 mg IM at some point during hospitalization and will apparently be due for his next dose on 05/11. plan will be to likely increase the dose to 200 mg IM and give dose earlier, likely early next week and resume patient back on the [id number] schedule. - Vistaril and Haldol PRN for agitation/aggression -NRT - nicotine patch -SW on board for discharge planning. Encourage patient to participate in groups to work on coping skills. will look at [facility] vs longterm for dispo, still waiting for answer back. patient deferred with his trust and estates attorney.
[2023-05-05] MEDS: NICOTINE 14MG/24HR PATCH TRANSDERM SCH (07:37)
[2023-05-05] MEDS: VENLAFAXINE HCL ER 150 MG CAP PO SCH (07:38)
[2023-05-05] MEDS: haloperidoL 5 MG TAB PO SCH ×2 (07:38→20:37)
[2023-05-05] MEDS: chlorproMAZINE 25 MG TAB PO PRN ×2 (07:39→14:52)
--- NOTE | 2023-05-05 12:29 | P.PN ---
Progress Note - Text Progress Note Date: 05/05/23 Interval History: Patient was seen laying in bed today and was directable and agreeable to speak with service writer advisor. Patient continues to be concrete and mildly improving in his hygiene and grooming today. Patient claims that he is doing a bit better today, he offered no overnight complaints. patient has been getting prn meds for anxiety and agitation. He continues to be fairly concrete and superficial in his responses. he has not been going to many groups however has been up for meals. Claims that his anxiety and mood have been mildly improving. He continues to have very poor insight and judgment which appears to be chronic. Patient has been taking his medications and we spoke about transitioning patient onto HAldol Dec early next week and he agreed to it. At this time patient denies any suicidal or homical ideations, intent or plan. Patient denies any auditory, visual hallucinations. Patient denies any side effects from the medications and has been compliant with meds. Mental Status Exam: General Appearance: Patient appears to be stated age is alert, directable, and attempts to cooperate. Patient appears to have mildly disheveled hygiene and grooming, improving mildly. Behavior: Patient is seated without any agitated behavior. superficial Speech: Patient's speech is fluent and nonpressured. Monotone. [place] Mood/Affect: Patient reports their mood is improving mildly, affect is constricted Suicidality/Homicidality: Patient endorses suicidal ideation. He denies any homicidal ideation. Perceptions: Patient denies any visual hallucinations and denies any auditory hallucinations Though content/process: There is no evidence of any delusional thought content. focused on medications. concrete, poverty of content Memory and concentration: AOX3, grossly intact for the purposes of this session Judgment and insight: chronically poor/impulsive, improving mildly IMPRESSIONS: Schizoaffective disorder, depressive type Methamphetamine use disorder Cannabis use disorder Alcohol use disorder Nicotine dependence Malingering PLAN: -Patient is admitted under involuntary MHU for stabilization of psychiatric symptoms and safety. Patient deferred. -Medications : effexor xr 150 mg daily for mood/anxiety. haldol PO 5 mg bid and transition patient back onto Haldol Dec. according to [facility] note on 04/27 he apparently received Haldol Dec 150 mg IM at some point during hospitalization and will apparently be due for his next dose on 05/11. plan will be to likely increase the dose to 200 mg IM and give dose earlier, likely monday next week and resume patient back on the [id number] schedule. - Vistaril and Haldol PRN for agitation/aggression -NRT - nicotine patch -SW on board for discharge planning. Encourage patient to participate in groups to work on coping skills. will look at [facility] vs nursing home for dispo, still waiting for answer back. patient deferred with his help desk analyst. likely discharge early next week monday or monday once patient is safely transitioned onto [facility].
[2023-05-05] MEDS: hydrOXYzine pamoate 25 MG CAP PO PRN (14:55)
[2023-05-05] MEDS ORDERED: MAGNESIUM HYDROXIDE 2,400 MG/30 ML CUP PO PRN (15:47)
[2023-05-06] MEDS: chlorproMAZINE 25 MG TAB PO PRN ×2 (07:00→14:07)
[2023-05-06] MEDS: hydrOXYzine pamoate 25 MG CAP PO PRN ×2 (07:00→14:09)
[2023-05-06] MEDS: NICOTINE 14MG/24HR PATCH TRANSDERM SCH (07:01)
[2023-05-06] MEDS: VENLAFAXINE HCL ER 150 MG CAP PO SCH (10:00)
[2023-05-06] MEDS: haloperidoL 5 MG TAB PO SCH (10:00)
[2023-05-06] MEDS: guaiFENesin 600 MG TABLET.ER PO SCH (12:00)
[2023-05-06] MEDS: FLUTICASONE 50MCG/SPRAY NASAL 16GM EA NOSTRIL SCH (13:34)
--- NOTE | 2023-05-06 13:43 | P.PN ---
Progress Note - Text Progress Note Date: 05/06/23 Interval History: Patient was seen this AM. Patient continues to be concrete and improving in his hygiene and grooming today. He provides brief superficial responses. He states that he is doing "good ". Discusses current medications and states that he is doing well. He reports fair sleep and appetite. He is noted to be walking around the halls and states that it is because he is "anxious ". He requests for Thorazine when necessary and states that this helps him when he feels agitated. He continues to have very poor insight and judgment which appears to be chronic. He continues to be agreeable with receiving Haldol dec early next week. At this time patient denies any suicidal or homicidal ideation, intent or plan. Patient denies any auditory, visual hallucinations. Patient denies any side effects from the medications and has been compliant with meds. Mental Status Exam: General Appearance: Patient appears to be stated age is alert, directable, and attempts to cooperate. Patient appears to have mildly disheveled hygiene and grooming, improving mildly. Behavior: Patient is seated without any agitated behavior. superficial Speech: Patient's speech is fluent and nonpressured. Monotone. [place] Mood/Affect: Patient reports their mood is improving mildly, affect is c onstricted Suicidality/Homicidality: Patient denies suicidal ideation. He denies any homicidal ideation. Perceptions: Patient denies any visual hallucinations and denies any auditory hallucinations Though content/process: There is no evidence of any delusional thought content. focused on medications. concrete, poverty of content Memory and concentration: AOX3, grossly intact for the purposes of this session Judgment and insight: chronically poor/impulsive, improving mildly IMPRESSIONS: Schizoaffective disorder, depressive type Methamphetamine use disorder Cannabis use disorder Alcohol use disorder Nicotine dependence Malingering PLAN: -Patient is admitted under involuntary MHU for stabilization of psychiatric symptoms and safety. Patient deferred. -Medications : effexor xr 150 mg daily for mood/anxiety. haldol PO 5 mg bid and transition patient back onto Haldol Dec. according to [facility] note on 04/27 he apparently received Haldol Dec 150 mg IM at some point during hospitalization and will apparently be due for his next dose on 05/11. plan will be to likely increase the dose to 200 mg IM and give dose earlier, likely monday next week and resume patient back on the [id number] schedule. - Vistaril and Haldol PRN for agitation/aggression -NRT - nicotine patch -SW on board for discharge planning. Encourage patient to participate in groups to work on coping skills. will look at [facility] for dispo, still waiting for answer back. patient deferred with his call center agent. likely discharge early next week monday or monday once patient is safely transitioned onto [facility].
[2023-05-07] MEDS: guaiFENesin 600 MG TABLET.ER PO SCH ×3 (04:36→21:01)
[2023-05-07] MEDS: haloperidoL 5 MG TAB PO SCH ×3 (04:37→21:01)
[2023-05-07] MEDS: hydrOXYzine pamoate 25 MG CAP PO PRN ×2 (06:14→14:02)
[2023-05-07] MEDS: chlorproMAZINE 25 MG TAB PO PRN ×2 (06:14→13:56)
[2023-05-07] MEDS: NICOTINE 14MG/24HR PATCH TRANSDERM SCH (06:15)
[2023-05-07 06:19] VITALS: RESP 16
[2023-05-07] MEDS: VENLAFAXINE HCL ER 150 MG CAP PO SCH (07:44)
[2023-05-07] MEDS: FLUTICASONE 50MCG/SPRAY NASAL 16GM EA NOSTRIL SCH (07:44)
--- NOTE | 2023-05-07 13:15 | P.PN ---
Progress Note - Text Progress Note Date: 05/07/23 Interval History: Patient was seen this AM. Patient continues to be concrete and improving in his hygiene and grooming today. He provides brief superficial responses. He states that he is doing "good ". Discusses current medications and states that he is doing well. He reports fair sleep and appetite. He continues to be walking around the halls but not participating in groups. He requests for Vistaril and Thorazine when necessary for anxiety/agitation. He is agreeable with receiving Haldol Dec tomorrow. At this time patient denies any suicidal or homicidal ideation, intent or plan. Patient denies any auditory, visual hallucinations. Patient denies any side effects from the medications and has been compliant with meds. Mental Status Exam: General Appearance: Patient appears to be stated age is alert, directable, and attempts to cooperate. Patient appears to have mildly disheveled hygiene and grooming, improving mildly. Behavior: Patient is seated without any agitated behavior. superficial Speech: Patient's speech is fluent and nonpressured. Monotone. [place] Mood/Affect: Patient reports their mood is improving mildly, affect is constricted Suicidality/Homicidality: Patient denies suicidal ideation. He denies any homicidal ideation. Perceptions: Patient denies any visual hallucinations and denies any auditory hallucinations Though content/process: There is no evidence of any delusional thought content. focused on medications. concrete, poverty of content Memory and concentration: AOX3, grossly intact for the purposes of this session Judgment and insight: chronically poor/impulsive, improving mildly IMPRESSIONS: Schizoaffective disorder, depressive type Methamphetamine use disorder Cannabis use disorder Alcohol use disorder Nicotine dependence Malingering PLAN: -Patient is admitted under involuntary MHU for stabilization of psychiatric symptoms and safety. Patient deferred. -Medications : effexor xr 150 mg daily for mood/anxiety. haldol PO 5 mg bid and transition patient back onto Haldol Dec. according to [facility] note on 04/27 he apparently received Haldol Dec 150 mg IM at some point during hospitalization and will apparently be due for his next dose on 05/11. plan will be to likely increase the dose to 200 mg IM and give dose earlier, likely monday and resume patient back on the [id number] schedule. - Vistaril and Haldol PRN for agitation/aggression -NRT - nicotine patch -SW on board for discharge planning. Encourage patient to participate in groups to work on coping skills. will look at [facility] for dispo, still waiting for answer back. patient deferred with his metal hardener. likely discharge early next week monday or monday once patient is safely transitioned onto [facility].
[2023-05-08] MEDS: chlorproMAZINE 25 MG TAB PO PRN (06:47)
[2023-05-08] MEDS: hydrOXYzine pamoate 25 MG CAP PO PRN (06:48)
[2023-05-08 06:56] VITALS: BP 115/63; PULSE 72; TEMP 97.9
[2023-05-08] MEDS: VENLAFAXINE HCL ER 150 MG CAP PO SCH (07:51)
[2023-05-08] MEDS: guaiFENesin 600 MG TABLET.ER PO SCH (07:51)
[2023-05-08] MEDS: FLUTICASONE 50MCG/SPRAY NASAL 16GM EA NOSTRIL SCH (07:51)
[2023-05-08] MEDS: haloperidoL 5 MG TAB PO SCH (07:51)
[2023-05-08] MEDS: NICOTINE 14MG/24HR PATCH TRANSDERM SCH (07:51)
[2023-05-08] MEDS ORDERED: HALOPERIDOL DECANOATE 100 MG/ML 1 ML VIAL IM SCH (10:30)
--- NOTE | 2023-05-08 11:15 | P.DS ---
Providers Date of admission: 05/01/23 00:41 Expected date of discharge: 05/08/23 Attending physician: Gamal Ruvalcaba MD Consults: 05/01/23 00:42 Consult Physician Routine Consulting Provider: Doron Physician Consult Reason/Comments: H&P, medical followup Do you want consulting provider notified?: Yes Primary care physician: Physician Nonstaff - Discharge Diagnosis(es) (1) Schizoaffective disorder, depressive type Current Visit: Yes Status: Acute Priority: High (2) Methamphetamine use disorder, moderate Current Visit: Yes Status: Acute Priority: High (3) Cannabis use disorder Current Visit: Yes Status: Acute Priority: Medium (4) Alcohol use disorder Current Visit: Yes Status: Acute Priority: High (5) Nicotine dependence Current Visit: Yes Status: Acute Priority: Low (6) Malingering Current Visit: Yes Status: Acute Priority: High Hospital Course: Admission HPI: Admission note was completed by justowriter operator "Patient is a 37-year-old single, homeless, male with significant history of schizoaffective disorder, depressive type who presents to the hospital after a reported intentional overdose on buspar. Patient presented to the hospital initially yesterday after supposedly overdosing on "60 BuSpar tablets" according to ER report. Patient was also endorsing depression and suicidal thoughts. Patient has a long history of schizoaffective disorder depressive type, malingering, poly-substance abuse. Patient is also currently homeless at this time. He supposedly was just discharged from [facility] after being there for several weeks. Patient was seen today laying in his bed and was agreeable to speak to justowriter operator today for evaluation. Patient appeared to have poor hygiene and grooming, he reported to justowriter operator that he overdosed on 60 BuSpar tablets. He states that his intent was to kill himself. He claims that his anxiety is "out of control". He claims that he is also feeling depressed at this time. He was fairly focused on obtaining medications for his anxiety and other controlled medications. Patient claims that he is homeless and does not have a place to go. States that he is sleeping fairly at nighttime. He did have mild tremors. He is unsure when he got his last Haldol D injection. Claims of a fair appetite. At this time is denying any auditory or visual hallucinations. He is claiming that he is having suicidal thoughts, no intent or plan, denying any homicidal ideation today. uds is positive for THC and amphetamines. patient states that he drinks accosionally and states that his last drink was more than 5 days ago. " Hospital course: Upon admission to the unit patient was fitted involuntarily to the mental health unit, Patient ended up signing a deferral with the real estate associate attorney and agreeing to treatment. Patient got along well with other patients on the unit and followed unit protocol. Patient was compliant with the medications and denied any side effects throughout hospital course. Patient was started on Effexor 150 mg daily for mood/anxiety, haloperidol by mouth which was transitioned into Haldol Decanoate 200 mg IM given on 05/08 and will be due in 2 weeks on 05/22. Patient is also on Vistaril when necessary for anxiety. Patient spoke of his stressors and engaged in therapy both group and individual. Patient was also seen by medical team for history and physical exam. Throughout the course of the hospitalization patient gradually improved with regards to mood, anxiety, suicidal thoughts, hygiene and grooming, sleep and returned back to their baseline level of functioning. On the day of discharge patient denied any suicidal or homicidal ideations intent or plan denied any auditory or visual hallucinations. Patient endorsed wanting to live for his health and future. The patient denied any access to guns or weapons. Patient denied any paranoia and did not endorse any delusions. Patient does have a significant history of substance abuse and was counseled on abstaining from all substances including alcohol and marijuana. Patient was offered however declined inpatient substance- abuse rehab. Patient was also counseled on the medications and need for regular compliance and was encouraged to follow-up with their outpatient appointment for mental health and also for primary care. family worker attempted to fax patient's packet of information to [facility] however patients packet is still pending and in review process and no deciison has been made. Mental status exam: General Appearance: Patient appears to be mildly discheveled,stated age is alert, pleasant, and cooperative. Patient is in no acute distress and has improved hygiene and grooming Behavior: Patient is calmly seated without any agitated behavior. Speech: Patient's speech is fluent and nonpressured. Mood/Affect: Patient reports their mood is "ok", affect is congruent Suicidality/Homicidality: Patient denies having any suicidal or homicidal ideation intent or plan. Perceptions: Patient denies any auditory or visual hallucinations. Though content/process: There is no evidence of any delusional thought content and thought process is linear and goal-directed. Memory and concentration: AOX3, grossly intact for the purposes of this session. Can spell "WORLD" backwards correctly. Judgment and insight: chronically poor, however has improved with guarded prognosis Impression: Schizoaffective disorder depressive type Methamphetamine use disorder moderate Cannabis use disorder Alcohol use disorder Malingering Nicotine dependence Plan: -Continue with discharge today as patient has improved and stabilized psychiatrically and is not currently an imminent threat to himself and/or others. Patient will remain at chronically elevated risk for harm to self and/or others due to his impulsivity and polysubstance abuse. -Continue medications: Effexor 150 mg daily for mood/90, haloperidol decanoate 200 mg IM, last dose given on 05/08 and next dose will be due on 05/22. Vistaril 50 mg daily when necessary for anxiety. Patient will only be given 7 days of the medication with 3 refills due to patient's high likelihood of overdosing. Patient will also be followed up closely by [facility] and act team. -Patient was counseled on the need for medication compliance and appropriate follow-up at mental health and also primary care for medical issues. Patient verbalized understanding and agreed. -Social work to help arrange patient's sisters today and referred to a snf. Social work also to arrange for patients follow up appointments with [facility] for psychiatric care along with follow up with primary care provider. -Patient counseled on abstaining from recreational drugs and marijuana and alcohol. Was informed/educated on the adverse effects on their physical and mental health. Patient verbally agreed and understood. Patient was offered substance abuse treatment however declined at this time. -Patient was instructed to return to the hospital or seek immediate medical care if their psychiatric or medical symptoms do worsen or reoccur. Allergies Allergy/AdvReac Type Severity Reaction Status Date / Time No Known Allergies Allergy Verified 04/30/23 21:29 Laboratory Results WBC 9.0 k/uL (3.8-10.6) 04/30/23 21:50 RBC 4.58 m/uL (4.30-5.90) 04/30/23 21:50 Hgb 12.9 gm/dL (13.0-17.5) L 04/30/23 21:50 Hct 38.0 % (39.0-53.0) L 04/30/23 21:50 MCV 82.9 fL (80.0-100.0) D 04/30/23 21:50 MCH 28.2 pg (25.0-35.0) 04/30/23 21:50 MCHC 34.0 g/dL (31.0-37.0) 04/30/23 21:50 RDW 13.6 % (11.5-15.5) 04/30/23 21:50 Plt Count 194 k/uL (150-450) D 04/30/23 21:50 MPV 9.2 04/30/23 21:50 Neutrophils % 68 % 04/30/23 21:50 Lymphocytes % 23 % 04/30/23 21:50 Monocytes % 6 % 04/30/23 21:50 Eosinophils % 1 % 04/30/23 21:50 Basophils % 0 % 04/30/23 21:50 Neutrophils # 6.1 k/uL (1.3-7.7) 04/30/23 21:50 Lymphocytes # 2.1 k/uL (1.0-4.8) 04/30/23 21:50 Monocytes # 0.5 k/uL (0-1.0) 04/30/23 21:50 Eosinophils # 0.1 k/uL (0-0.7) 04/30/23 21:50 Basophils # 0.0 k/uL (0-0.2) 04/30/23 21:50 Sodium 137 mmol/L (137-145) 04/30/23 21:50 Potassium 3.9 mmol/L (3.5-5.1) 04/30/23 21:50 Chloride 104 mmol/L (98-107) 04/30/23 21:50 Carbon Dioxide 25 mmol/L (22-30) 04/30/23 21:50 Anion Gap 8 mmol/L 04/30/23 21:50 BUN 11 mg/dL (9-20) 04/30/23 21:50 Creatinine 0.55 mg/dL (0.66-1.25) L 04/30/23 21:50 Est GFR (CKD-EPI)AfAm >90 (>60 ml/min/1.73 sqM) 04/30/23 21:50 Est GFR (CKD-EPI)NonAf >90 (>60 ml/min/1.73 sqM) 04/30/23 21:50 Glucose 111 mg/dL (74-99) H 04/30/23 21:50 Calcium 9.1 mg/dL (8.4-10.2) 04/30/23 21:50 Total Bilirubin 0.4 mg/dL (0.2-1.3) 04/30/23 21:50 AST 33 U/L (17-59) 04/30/23 21:50 ALT 21 U/L (4-49) 04/30/23 21:50 Alkaline Phosphatase 45 U/L (38-126) 04/30/23 21:50 Total Protein 7.0 g/dL (6.3-8.2) 04/30/23 21:50 Albumin 3.8 g/dL (3.5-5.0) 04/30/23 21:50 Salicylates <1.0 mg/dL 04/30/23 21:50 Urine Opiates Screen Not Detected (NotDetected) 04/30/23 21:38 Ur Oxycodone Screen Not Detected (NotDetected) 04/30/23 21:38 Urine Methadone Screen Not Detected (NotDetected) 04/30/23 21:38 Ur Propoxyphene Screen Not Detected (NotDetected) 04/30/23 21:38 Acetaminophen <10.0 ug/mL 04/30/23 21:50 Ur Barbiturates Screen Not Detected (NotDetected) 04/30/23 21:38 U Tricyclic Antidepress Not Detected (NotDetected) 04/30/23 21:38 Ur Phencyclidine Scrn Not Detected (NotDetected) 04/30/23 21:38 Ur Amphetamines Screen Detected (NotDetected) H 04/30/23 21:38 U Methamphetamines Scrn Not Detected (NotDetected) 04/30/23 21:38 U Benzodiazepines Scrn Not Detected (NotDetected) 04/30/23 21:38 Urine Cocaine Screen Not Detected (NotDetected) 04/30/23 21:38 U Marijuana (THC) Screen Detected (NotDetected) H 04/30/23 21:38 Coronavirus (PCR) Not Detected (Not Detectd) 05/01/23 00:11 Vital Signs Temp 97.9 F 05/08/23 06:43 Pulse 72 05/08/23 06:43 Resp 16 05/08/23 06:43 BP 115/63 05/08/23 06:43 Pulse Ox 97 05/07/23 06:00 FiO2 Patient Condition at Discharge: Stable Plan - Discharge Summary Discharge Rx Participant: Yes New Discharge Prescriptions: New Venlafaxine HCl [Effexor] 150 mg PO DAILY 7 Days #7 tab Fluticasone Nasal Holly [Flonase Nasal Holly] 2 spray EA NOSTRIL DAILY #1 ml Nicotine 14Mg/24Hr Patch [Habitrol] 1 patch TRANSDERM DAILY 14 Days #14 patch hydrOXYzine pamoate [Vistaril] 50 mg PO DAILY PRN 7 Days #14 cap PRN Reason: Anxiety Changed Haloperidol Decanoate [Haldol D] 200 mg IM Q14D #1 each Discontinued Gabapentin [Neurontin] 400 mg PO TID Benztropine Mesylate [Cogentin] 0.5 mg PO BID QUEtiapine [SEROquel] 200 mg PO HS hydrOXYzine pamoate [Vistaril] 50 mg PO TID OLANZapine [ZyPREXA] 20 mg PO HS Discharge Medication List Fluticasone Nasal Holly [Flonase Nasal Holly] 2 spray EA NOSTRIL DAILY #1 ml 05/08/23 [Rx] Haloperidol Decanoate [Haldol D] 200 mg IM Q14D #1 each 05/08/23 [Rx] Nicotine 14Mg/24Hr Patch [Habitrol] 1 patch TRANSDERM DAILY 14 Days #14 patch 05/08/23 [Rx] Venlafaxine HCl [Effexor] 150 mg PO DAILY 7 Days #7 tab 05/08/23 [Rx] hydrOXYzine pamoate [Vistaril] 50 mg PO DAILY PRN 7 Days #14 cap 05/08/23 [Rx] Follow up Appointment(s)/Referral(s): [facility] [Outside] - 1 Week (will call guardians with appt tomorrow, [facility] closed today.) [facility] [NON-STAFF] - 1 Week Patient Instructions/Handouts: How to Stop Smoking (DC), Depression (DC), Polysubstance Abuse (ED) Activity/Diet/Wound Care/Special Instructions: Avoid the use of street drugs and alcohol. Take all medications as prescribed. When you are in need of refills on your medications, please contact your medical provider and/or outpatient psychiatrist to have this done. Please go to scheduled outpatient appointments for aftercare treatment. If symptoms return or become worse, call the crisis line at and/or go to the nearest emergency room for evaluation. Discharge Disposition: OTHER INSTITUTION NOT DEFINED
== END 2023-05-08 12:36 | disposition home or self-care (01) | DRG 750 ==
LOC: EC 20:48 → 3MHU 05-01 00:41
PROVIDERS: ADMIT Psychiatry & Neurology Psychiatry; ATTEND Psychiatry & Neurology Psychiatry
DX: F25.1 Schizoaffective disorder, depressive type (principal); T43.592A Poisoning by other antipsychotics and neuroleptics, intentional self-harm, initial encounter; Z59.00 Homelessness unspecified; Z76.5 Malingerer [conscious simulation]; F12.10 Cannabis abuse, uncomplicated; F15.10 Other stimulant abuse, uncomplicated; F14.90 Cocaine use, unspecified, uncomplicated; F10.10 Alcohol abuse, uncomplicated; F17.210 Nicotine dependence, cigarettes, uncomplicated; Z78.1 Physical restraint status; Z20.822 Contact with and (suspected) exposure to COVID-19; D64.9 Anemia, unspecified; K21.9 Gastro-esophageal reflux disease without esophagitis; I10 Essential (primary) hypertension; K76.9 Liver disease, unspecified; Z86.19 Personal history of other infectious and parasitic diseases; Z79.899 Other long term (current) drug therapy; I51.9 Heart disease, unspecified; Z82.49 Family history of ischemic heart disease and other diseases of the circulatory system; F41.9 Anxiety disorder, unspecified
CPT/HCPCS: 36415; 80053; 80143; 80179; 80306; 82075; 85025; 87635; 93005; 96360; 99285

== ENCOUNTER 2023-05-08 20:47 | Observation (INO) | payer OTHER ==
[2023-05-08] MEDS ORDERED: SODIUM CHLORIDE 0.9% 1,000 ML IV ONE ×2 (21:38→23:40)
[2023-05-08 22:26] LABS: Appearance,Urine Clear (Clear); Bilirubin,Urine Negative (Negative); Blood,Urine Negative (Negative); Color,Urine Colorless; Glucose,Urine (UA) Negative (Negative); Ketones,Urine Negative (Negative); Leukocyte Esterase,Urine Negative (Negative); Nitrite,Urine Negative (Negative); Protein,Urine Negative (Negative); Specific Gravity,Urine 1.003 (1.001-1.035); Urobilinogen,Urine <2.0 mg/dL (<2.0)
[2023-05-08 22:38] LABS: Amphetamine Screen,Urine Not Detected (NotDetected); Benzodiazepines Screen,Urine Not Detected (NotDetected); Cocaine Screen,Urine Not Detected (NotDetected); Methadone Screen, Urine Not Detected (NotDetected); Opiate Screen,Urine Not Detected (NotDetected); Phencyclidine Screen,Urine Not Detected (NotDetected); Tricyclic Antidepressant,Urine Detected (NotDetected); Urn Cannabinoid Scrn Detected (NotDetected)
[2023-05-08 22:39] LABS: Barbiturate Screen,Urine Not Detected (NotDetected); Oxycodone Screen, Urine Not Detected (NotDetected)
[2023-05-08 23:06] LABS: ALT 24 U/L (4-49); AST 43 U/L (17-59); African American GFR (CKD) >90 (>60 ml/min/1.73 sqM); Alkaline Phosphatase 52 U/L (38-126); Anion Gap 16 mmol/L; Blood Urea Nitrogen 13 mg/dL (9-20); Calcium 9.1 mg/dL (8.4-10.2); Carbon Dioxide 19 mmol/L (22-30); Chloride 104 mmol/L (98-107); Glucose 108 mg/dL (74-99); Non-African American GFR(CKD) >90 (>60 ml/min/1.73 sqM); Potassium 4.6 mmol/L (3.5-5.1); Sodium 139 mmol/L (137-145); Total Bilirubin 0.4 mg/dL (0.2-1.3)
[2023-05-08 23:07] LABS: Partial Thromboplastin Time 22.7 sec (22.0-30.0); Prothrombin Time 10.3 sec (9.0-12.0)
[2023-05-08 23:24] LABS: Alcohol 330 mg/dL
[2023-05-09] MEDS ORDERED: NALOXONE 0.4 MG/ML 1 ML VIAL IV PRN (00:05)
--- NOTE | 2023-05-09 00:05 | ED ---
General Adult HPI - General Chief complaint: Alcohol Stated complaint: ETOH Time Seen by Provider: 05/08/23 21:21 Source: EMS, RN notes reviewed Mode of arrival: EMS Limitations: no limitations - History of Present Illness Initial comments: This is a 37-year-old male who is well-known to this emergency department who presents via EMS with a chief complaint alcohol intoxication. EMS reports that patient was discharged from this facility approximately 12 PM. EMS reports that he was found in the street with suspected alcohol use. He reports they suspect patient drink 1-2 pints of liquor. Patient is clinically intoxicated therefore most of the history was obtained from EMS. - Related Data Previous Rx's Medication Instructions Recorded Fluticasone Nasal [place] [Flonase 2 spray EA NOSTRIL DAILY #1 ml 05/08/23 Nasal [place]] Haloperidol Decanoate [Haldol D] 200 mg IM Q14D #1 each 05/08/23 Nicotine 14Mg/24Hr Patch [Habitrol] 1 patch TRANSDERM DAILY 14 Days 05/08/23 #14 patch Venlafaxine HCl [Effexor] 150 mg PO DAILY 7 Days #7 tab 05/08/23 hydrOXYzine pamoate [Vistaril] 50 mg PO DAILY PRN 7 Days #14 cap 05/08/23 Allergies Allergy/AdvReac Type Severity Reaction Status Date / Time No Known Allergies Allergy Verified 04/30/23 21:29 Review of Systems ROS Statement: Those systems with pertinent positive or pertinent negative responses have been documented in the HPI. ROS Other: All systems not noted in ROS Statement are negative. Past Medical History Past Medical History: No Reported History, Unable to Obtain, GERD/Reflux, H ypertension, Liver Disease Additional Past Medical History / Comment(s): Hepatitis C, DDD, back pain, bilateral carpel tunnel syndrome. He reports that he has heart disease that was found when he had kidney problems but he denies having a stress test or cardiac catheterization. History of Any Multi-Drug Resistant Organisms: None Reported MDRO Source:: unknown Past Surgical History: No Surgical Hx Reported, Unable to Obtain Additional Past Surgical History / Comment(s): Pt states he has had numerous "cysts" removed from where he injected IV drugs. Past Anesthesia/Blood Transfusion Reactions: No Reported Reaction, Unable to Obtain Additional Past Anesthesia/Blood Transfusion Reaction / Comment(s): Pt states he has never had surgery. Smoking Status: Current every day smoker - Past Family History Mother Family Medical History: Unable to Obtain, Rheumatoid Arthritis (RA) Additional Family Medical History / Comment(s): Mother is . Father Family Medical History: Coronary Artery Disease (CAD) General Exam - General Exam Comments Initial Comments: General: Alert, in no acute distress, she appears clinically intoxicated Head: atraumatic normocephalic. Eyes PERRL, EOMI intact, mucous membranes moist, pupils are mydriatic Respiratory: Lungs clear to auscultation bilaterally Cardiovascular: Heart rate regular rate and rhythm Abdominal: Soft without guarding or rebound Extremities: Normal inspection with full range of motion and normal capillary refill Neuroogic: Arousable to some verbal stimuli, arousable to painful stimuli. Patient able to move all extremities freely. Skin: warm dry and intact with normal color Limitations: no limitations Course Vital Signs 05/08/23 05/09/23 21:01 00:23 Temperature 98.2 F Pulse Rate 95 75 Respiratory 16 18 Rate Blood Pressure 137/70 123/77 O2 Sat by Pulse 97 95 Oximetry - Reevaluation(s) Reevaluation #1: 05/09/23 00:04 Case discussed with Sound who agrees and accepts the patient for admission as his alcohol level is 330. EKG Findings - EKG Comments: EKG Findings:: I interpreted the following: EKG performed at 22:02 rate 88 bpm normal sinus rhythm RI interval 120, QRS 93/ Qt/Qtc 340/385 Medical Decision Making - Medical Decision Making Was pt. sent in by a medical professional or institution (, PA, ANALYTICAL CHEMISTRY TEACHER, urgent care, hospital, or fpc...) When possible be specific @ -[No] Did you speak to anyone other than the patient for history (EMS, parent, family, police, friend...)? What history was obtained from this source @ -[No] Did you review nursing and triage notes (agree or disagree)? Why? @ -[I reviewed and agree with nursing and triage notes] Were old charts reviewed (outside hosp., previous admission, EMS record, old EKG, old radiological studies, urgent care reports/EKG's, fpc records)? Report findings @ -[No old charts were reviewed] Differential Diagnosis (chest pain, altered mental status, abdominal pain women, abdominal pain men, vaginal bleeding, weakness, fever, dyspnea, syncope, headache, dizziness, GI bleed, back pain, seizure, CVA, palpatations, mental health, musculoskeletal)? @ -[not applicable] EKG interpreted by me (3pts min.). @ -[As above] X-rays interpreted by me (1pt min.). @ -[None done] CT interpreted by me (1pt min.). @ -[None done] U/S interpreted by me (1pt. min.). @ -[None done] What testing was considered but not performed or refused? (CT, X-rays, U/S, labs)? Why? @ -[None] What meds were considered but not given or refused? Why? @ -[None] Did you discuss the management of the patient with other professionals (professionals i.e. , PA, ANALYTICAL CHEMISTRY TEACHER, lab, RT, psych nurse, social service technician, windows server architect, teacher, executive officer, onsite case manager)? Give summary @ -Case discussed with Dr. Sandra swenson who agrees and accepts the patient for admission Was smoking cessation discussed for >3mins.? @ -[No] Was critical care preformed (if so, how long)? @ -[No] Were there social determinants of health that impacted care today? How? (Homelessness, low income, unemployed, alcoholism, drug addiction, transportation, low edu. Level, literacy, decrease access to med. care, longterm, rehab)? @ -[No] Was there de-escalation of care discussed even if they declined (Discuss DNR or withdrawal of care, Hospice)? DNR status @ -[No] What co-morbidities impacted this encounter? (DM, HTN, Smoking, COPD, CAD, Cancer, CVA, ARF, Chemo, Hep., AIDS, mental health diagnosis, sleep apnea, morbid obesity)? @ -Alcohol use disorder Was patient admitted / discharged? Hospital course, mention meds given and route, prescriptions, significant lab abnormalities, going to OR and other pe rtinent info. @ -Admission. This is a 37-year-old male who presents the emergency department with alcohol intoxication. Patient had a thorough physical exam performed emergency department. Physical exam reveals a clinically intoxicated male admitted to Dr. nieto, able to move all extremities freely, patient able to ambulate. Majority of the history was provided by EMS. Patient had lab work and imaging performed which revealed WBCs 8.1, hemoglobin 15.7 coagulation studies unremarkable sodium 139, potassium 4.6 BUN 13, creatinine 0.76 initial lactic acid 2.6 initial troponin negative. Serum alcohol is 330. My decision to admit the patient for further observation for alcohol intoxication. patient given 2 L of IV fluids. Case discussed with thomas Costello nd who agrees and accepts the patient for observation. Case discussed with MELONIE Varma who is the plan of care. Undiagnosed new problem with uncertain prognosis? @ -[No] Drug Therapy requiring intensive monitoring for toxicity (Heparin, Nitro, Insulin, Cardizem)? @ -[No] Were any procedures done? @ -[No] Diagnosis/symptom? @ -Alcohol intoxication Acute, or Chronic, or Acute on Chronic? @ -Acute Uncomplicated (without systemic symptoms) or Complicated (systemic symptoms)? @ -Uncomplicated Side effects of treatment? @ -[No] Exacerbation, Progression, or Severe Exacerbation? @ -[No] Poses a threat to life or bodily function? How? (Chest pain, USA, NM, pneumonia, PE, COPD, DKA, ARF, appy, cholecystitis, CVA, Diverticulitis, Homicidal, Suicidal, threat to staff... and all critical care pts) @ -Low likelihood - Lab Data Result diagrams: 05/08/23 22:33 05/08/23 22:33 Lab Results 05/08/23 05/08/23 05/08/23 Range/Units 22:02 22:33 22:33 WBC 8.1 (3.8-10.6) k/uL RBC 5.46 (4.30-5.90) m/uL Hgb 15.7 (13.0-17.5) gm/dL Hct 45.6 (39.0-53.0) % MCV 83.6 (80.0-100.0) fL MCH 28.7 (25.0-35.0) pg MCHC 34.4 (31.0-37.0) g/dL RDW 13.5 (11.5-15.5) % Plt Count 243 (150-450) k/uL MPV 9.1 Neutrophils % 56 % Lymphocytes % 36 % Monocytes % 5 % Eosinophils % 1 % Basophils % 1 % Neutrophils # 4.5 (1.3-7.7) k/uL Lymphocytes # 2.9 (1.0-4.8) k/uL Monocytes # 0.4 (0-1.0) k/uL Eosinophils # 0.1 (0-0.7) k/uL Basophils # 0.1 (0-0.2) k/uL PT 10.3 (9.0-12.0) sec INR 1.0 (<1.2) APTT 22.7 (22.0-30.0) sec Sodium (137-145) mmol/L Potassium (3.5-5.1) mmol/L Chloride (98-107) mmol/L Carbon Dioxide (22-30) mmol/L Anion Gap mmol/L BUN (9-20) mg/dL Creatinine (0.66-1.25) mg/dL Est GFR (CKD-EPI)AfAm (>60 ml/min/1.73 sqM) Est GFR (CKD-EPI)NonAf (>60 ml/min/1.73 sqM) Glucose (74-99) mg/dL Lactic Ac Sepsis Rflx Plasma Lactic Acid [place] (0.7-2.0) mmol/L Calcium (8.4-10.2) mg/dL Total Bilirubin (0.2-1.3) mg/dL AST (17-59) U/L ALT (4-49) U/L Alkaline Phosphatase (38-126) U/L Troponin I (0.000-0.034) ng/mL Total Protein (6.3-8.2) g/dL Albumin (3.5-5.0) g/dL Urine Color Colorless Urine Appearance Clear (Clear) Urine pH 5.0 (5.0-8.0) Ur Specific [place] 1.003 (1.001-1.035) Urine Protein Negative (Negative) Urine Glucose (UA) Negative (Negative) Urine Ketones Negative (Negative) Urine Blood Negative (Negative) Urine Nitrite Negative (Negative) Urine Bilirubin Negative (Negative) Urine Urobilinogen <2.0 (<2.0) mg/dL Ur Leukocyte Esterase Negative (Negative) Urine Opiates Screen Not Detected (NotDetected) Ur Oxycodone Screen Not Detected (NotDetected) Urine Methadone Screen Not Detected (NotDetected) Ur Propoxyphene Screen Not Detected (NotDetected) Ur Barbiturates Screen Not Detected (NotDetected) U Tricyclic Antidepress Detected H (NotDetected) Ur Phencyclidine Scrn Not Detected (NotDetected) Ur Amphetamines Screen Not Detected (NotDetected) U Methamphetamines Scrn Not Detected (NotDetected) U Benzodiazepines Scrn Not Detected (NotDetected) Urine Cocaine Screen Not Detected (NotDetected) U Marijuana (THC) Screen Detected H (NotDetected) Serum Alcohol mg/dL 05/08/23 05/08/23 05/08/23 Range/Units 22:33 22:33 22:33 WBC (3.8-10.6) k/uL RBC (4.30-5.90) m/uL Hgb (13.0-17.5) gm/dL Hct (39.0-53.0) % MCV (80.0-100.0) fL MCH (25.0-35.0) pg MCHC (31.0-37.0) g/dL RDW (11.5-15.5) % Plt Count (150-450) k/uL MPV Neutrophils % % Lymphocytes % % Monocytes % % Eosinophils % % Basophils % % Neutrophils # (1.3-7.7) k/uL Lymphocytes # (1.0-4.8) k/uL Monocytes # (0-1.0) k/uL Eosinophils # (0-0.7) k/uL Basophils # (0-0.2) k/uL PT (9.0-12.0) sec INR (<1.2) APTT (22.0-30.0) sec Sodium 139 (137-145) mmol/L Potassium 4.6 (3.5-5.1) mmol/L Chloride 104 (98-107) mmol/L Carbon Dioxide 19 L (22-30) mmol/L Anion Gap 16 mmol/L BUN 13 (9-20) mg/dL Creatinine 0.76 (0.66-1.25) mg/dL Est GFR (CKD-EPI)AfAm >90 (>60 ml/min/1.73 sqM) Est GFR (CKD-EPI)NonAf >90 (>60 ml/min/1.73 sqM) Glucose 108 H (74-99) mg/dL Lactic Ac Sepsis Rflx Plasma Lactic Acid [place] 2.6 H* (0.7-2.0) mmol/L Calcium 9.1 (8.4-10.2) mg/dL Total Bilirubin 0.4 (0.2-1.3) mg/dL AST 43 (17-59) U/L ALT 24 (4-49) U/L Alkaline Phosphatase 52 (38-126) U/L Troponin I <0.012 (0.000-0.034) ng/mL Total Protein 9.0 H (6.3-8.2) g/dL Albumin 5.0 (3.5-5.0) g/dL Urine Color Urine Appearance (Clear) Urine pH (5.0-8.0) Ur Specific [place] (1.001-1.035) Urine Protein (Negative) Urine Glucose (UA) (Negative) Urine Ketones (Negative) Urine Blood (Negative) Urine Nitrite (Negative) Urine Bilirubin (Negative) Urine Urobilinogen (<2.0) mg/dL Ur Leukocyte Esterase (Negative) Urine Opiates Screen (NotDetected) Ur Oxycodone Screen (NotDetected) Urine Methadone Screen (NotDetected) Ur Propoxyphene Screen (NotDetected) Ur Barbiturates Screen (NotDetected) U Tricyclic Antidepress (NotDetected) Ur Phencyclidine Scrn (NotDetected) Ur Amphetamines Screen (NotDetected) U Methamphetamines Scrn (NotDetected) U Benzodiazepines Scrn (NotDetected) Urine Cocaine Screen (NotDetected) U Marijuana (THC) Screen (NotDetected) Serum Alcohol 330 H* mg/dL 05/08/23 Range/Units 23:07 WBC (3.8-10.6) k/uL RBC (4.30-5.90) m/uL Hgb (13.0-17.5) gm/dL Hct (39.0-53.0) % MCV (80.0-100.0) fL MCH (25.0-35.0) pg MCHC (31.0-37.0) g/dL RDW (11.5-15.5) % Plt Count (150-450) k/uL MPV Neutrophils % % Lymphocytes % % Monocytes % % Eosinophils % % Basophils % % Neutrophils # (1.3-7.7) k/uL Lymphocytes # (1.0-4.8) k/uL Monocytes # (0-1.0) k/uL Eosinophils # (0-0.7) k/uL Basophils # (0-0.2) k/uL PT (9.0-12.0) sec INR (<1.2) APTT (22.0-30.0) sec Sodium (137-145) mmol/L Potassium (3.5-5.1) mmol/L Chloride (98-107) mmol/L Carbon Dioxide (22-30) mmol/L Anion Gap mmol/L BUN (9-20) mg/dL Creatinine (0.66-1.25) mg/dL Est GFR (CKD-EPI)AfAm (>60 ml/min/1.73 sqM) Est GFR (CKD-EPI)NonAf (>60 ml/min/1.73 sqM) Glucose (74-99) mg/dL Lactic Ac Sepsis Rflx Y Plasma Lactic Acid [place] (0.7-2.0) mmol/L Calcium (8.4-10.2) mg/dL Total Bilirubin (0.2-1.3) mg/dL AST (17-59) U/L ALT (4-49) U/L Alkaline Phosphatase (38-126) U/L Troponin I (0.000-0.034) ng/mL Total Protein (6.3-8.2) g/dL Albumin (3.5-5.0) g/dL Urine Color Urine Appearance (Clear) Urine pH (5.0-8.0) Ur Specific [place] (1.001-1.035) Urine Protein (Negative) Urine Glucose (UA) (Negative) Urine Ketones (Negative) Urine Blood (Negative) Urine Nitrite (Negative) Urine Bilirubin (Negative) Urine Urobilinogen (<2.0) mg/dL Ur Leukocyte Esterase (Negative) Urine Opiates Screen (NotDetected) Ur Oxycodone Screen (NotDetected) Urine Methadone Screen (NotDetected) Ur Propoxyphene Screen (NotDetected) Ur Barbiturates Screen (NotDetected) U Tricyclic Antidepress (NotDetected) Ur Phencyclidine Scrn (NotDetected) Ur Amphetamines Screen (NotDetected) U Methamphetamines Scrn (NotDetected) U Benzodiazepines Scrn (NotDetected) Urine Cocaine Screen (NotDetected) U Marijuana (THC) Screen (NotDetected) Serum Alcohol mg/dL Disposition Clinical Impression: Alcohol abuse, Alcoholic intoxication Disposition: ADMITTED IP TO THIS HOSP Condition: Fair Time of Disposition: 01:19
[2023-05-09] MEDS ORDERED: ACETAMINOPHEN TAB 325 MG TAB PO PRN (00:06)
[2023-05-09] MEDS ORDERED: LORazepam 2 MG/ML INJ IV PRN ×3 (00:07)
[2023-05-09] MEDS ORDERED: THIAMINE 100 MG/ML 2 ML VIAL IM STA (00:07)
[2023-05-09] MEDS ORDERED: SODIUM CHLORIDE 0.9% 1,000 ML IV SCH (00:15)
[2023-05-09 00:35] LABS: Glucose,Whole Blood 107 mg/dL (70-110)
[2023-05-09 00:51] LABS: Basophils # (A) 0.1 k/uL (0-0.2); Basophils % (A) 1 %; Eosinophils # (A) 0.1 k/uL (0-0.7); Eosinophils % (A) 1 %; HCT 45.6 % (39.0-53.0); HGB 15.7 gm/dL (13.0-17.5); Lymphocytes # (A) 2.9 k/uL (1.0-4.8); Lymphocytes % (A) 36 %; MCH 28.7 pg (25.0-35.0); MCHC 34.4 g/dL (31.0-37.0); MCV 83.6 fL (80.0-100.0); Mean Platelet Volume 9.1; Monocytes # (A) 0.4 k/uL (0-1.0); Monocytes % (A) 5 %; Neutrophils # (A) 4.5 k/uL (1.3-7.7); Neutrophils % (A) 56 %; Platelet Count 243 k/uL (150-450); RBC 5.46 m/uL (4.30-5.90); RDW 13.5 % (11.5-15.5); WBC 8.1 k/uL (3.8-10.6)
--- NOTE | 2023-05-09 01:23 | P.HPIM ---
History of Present Illness H&P Date: 05/09/23 Patient is a 37-year-old male well-known to us with a PMH of schizoaffective disorder, history of intentional drug overdose, and alcohol abuse who presents to the emergency room brought in by EMS after he was found intoxicated. The patient had reported in the emergency room that he drank 2-4 pints of hard liquor following his discharge earlier today from the mental health unit. No history could be obtained from the patient at the time of interview as he was clinically intoxicated and somnolent. History thereby obtained from the ED provider and the documentation. Laboratory evaluation was reviewed with WBC count 8.1, hemoglobin 15.7, lactic acid 2.6, glucose 108, CO2 19, and urine toxicology positive for marijuana and TCAs with serum alcohol level 330. EKG revealed sinus rhythm at [address]/T-wave changes noted as reviewed by me. ED documentation reviewed and case discussed with ED provider. Review of systems: Unable to obtain due to mental status Physical examination: Vital signs reviewed General: Disheveled male, no distress, appears at stated age, obese Derm: no unusual rashes/lesions, warm Head: atraumatic, normocephalic, symmetric Eyes: EOMI, no lid lag, anicteric sclera, pupils equal round reactive to light ENT: Nose and ears atraumatic Neck: No cervical lymphadenopathy, trachea midline, supple Mouth: no lip lesion, mucus membranes dry Cardiovascular: S1S2 reg, no murmur, positive dorsalis pedis pulse bilateral, no edema Lungs: CTA bilateral, no rhonchi, no rales, no accessory muscle use Abdominal: soft, nontender to palpation, no guarding Ext: no gross muscle atrophy, no contractures Neuro: Unable to fully assess, patient spontaneously moving all extremities, arousable to sternal rub and speaking in small sentences but not answering any questions appropriately, no gross focal neuro deficits Assessment: Alcohol intoxication Lactic acidosis Imaging: EKG revealed sinus rhythm at [address]/T-wave changes noted as reviewed by me. Data Review: Laboratory evaluation was reviewed with WBC count 8.1, hemoglobin 15.7, lactic acid 2.6, glucose 108, CO2 19, and urine toxicology positive for marijuana and TCAs with serum alcohol level 330. Plan: IV fluids Thiamine, multivitamin CIWA protocol Fall precautions Trend lactate for resolution Cardiac monitoring Monitor electrolytes DVT prophylaxis: Heparin subq The patient is admitted with an anticipated less than 2 midnight stay for evaluation of EtOH CODE STATUS: Full Code Anticipated discharge date: in am Anticipated discharge place: Home Past Medical History Past Medical History: No Reported History, Unable to Obtain, GERD/Reflux, Hypertension, Liver Disease Additional Past Medical History / Comment(s): Hepatitis C, DDD, back pain, bilateral carpel tunnel syndrome. He reports that he has heart disease that was found when he had kidney problems but he denies having a stress test or cardiac catheterization. History of Any Multi-Drug Resistant Organisms: None Reported MDRO Source:: unknown Past Surgical History: No Surgical Hx Reported, Unable to Obtain Additional Past Surgical History / Comment(s): Pt states he has had numerous "cysts" removed from where he injected IV drugs. Past Anesthesia/Blood Transfusion Reactions: No Reported Reaction, Unable to Obtain Additional Past Anesthesia/Blood Transfusion Reaction / Comment(s): Pt states he has never had surgery. Smoking Status: Current every day smoker - Past Family History Mother Family Medical History: Unable to Obtain, Rheumatoid Arthritis (RA) Additional Family Medical History / Comment(s): Mother is . Father Family Medical History: Coronary Artery Disease (CAD) Medications and Allergies Home Medications Medication Instructions Recorded Confirmed Type Fluticasone Nasal [place] [Flonase 2 spray EA NOSTRIL DAILY #1 ml 05/08/23 Rx Nasal [place]] Haloperidol Decanoate [Haldol D] 200 mg IM Q14D #1 each 05/08/23 Rx Nicotine 14Mg/24Hr Patch [Habitrol] 1 patch TRANSDERM DAILY 14 Days 05/08/23 Rx #14 patch Venlafaxine HCl [Effexor] 150 mg PO DAILY 7 Days #7 tab 05/08/23 Rx hydrOXYzine pamoate [Vistaril] 50 mg PO DAILY PRN 7 Days #14 cap 05/08/23 Rx Allergies Allergy/AdvReac Type Severity Reaction Status Date / Time No Known Allergies Allergy Verified 04/30/23 21:29 Physical Exam Vitals: Vital Signs Temp Pulse Resp BP Pulse Ox 05/09/23 00:23 75 18 123/77 95 05/08/23 21:01 98.2 F 95 16 137/70 97 Intake and Output 05/08/23 05/08/23 05/09/23 14:59 22:59 06:59 Other: Weight 96.842 kg Results CBC & Chem 7: 05/08/23 22:33 05/08/23 22:33 Labs: Abnormal Lab Results - Last 24 Hours (Table) 05/08/23 05/08/23 05/08/23 Range/Units 22:02 22:33 22:33 Carbon Dioxide 19 L (22-30) mmol/L Glucose 108 H (74-99) mg/dL Plasma Lactic Acid Sohail 2.6 H* (0.7-2.0) mmol/L Total Protein 9.0 H (6.3-8.2) g/dL U Tricyclic Antidepress Detected H (NotDetected) U Marijuana (THC) Screen Detected H (NotDetected) Serum Alcohol 330 H* mg/dL
--- NOTE | 2023-05-09 02:14 | CT ---
EXAM: CT Head Without Intravenous Contrast CLINICAL HISTORY: ITS.REASON CT Reason: pain TECHNIQUE: Axial computed tomography images of the head/brain without intravenous contrast. CTDI is 45.2 mGy and DLP is 761.2 mGy-cm. This CT exam was performed using one or more of the following dose reduction techniques: automated exposure control, adjustment of the mA and/or kV according to patient size, and/or use of iterative reconstruction technique. COMPARISON: No relevant prior studies available. FINDINGS: Brain: No hemorrhage or mass effect. Ventricles: No hydrocephalus. Bones/joints: Unremarkable. Soft tissues: Unremarkable. Sinuses: Left sphenoid sinus air fluid level. Mastoid air cells: Clear. IMPRESSION: No acute hemorrhage, hydrocephalus, or mass effect. EXAM: CT Cervical Spine Without Intravenous Contrast CLINICAL HISTORY: ITS.REASON CT Reason: pain TECHNIQUE: Axial computed tomography images of the cervical spine without intravenous contrast. CTDI is 17.2 mGy and DLP is 761.2 mGy-cm. This CT exam was performed using one or more of the following dose reduction techniques: automated exposure control, adjustment of the mA and/or kV according to patient size, and/or use of iterative reconstruction technique. COMPARISON: No relevant prior studies available. FINDINGS: Vertebrae: No acute fracture. Discs/spinal canal/neural foramina: No significant degenerative changes. Soft tissues: No prevertebral swelling. IMPRESSION: No acute fracture or subluxation.
--- NOTE | 2023-05-09 02:28 | XR ---
EXAM: XR Chest, 1 View CLINICAL HISTORY: ITS.REASON XR Reason: AMS TECHNIQUE: Frontal view of the chest. COMPARISON: No relevant prior studies available. FINDINGS: Lungs: No consolidation or mass. Pleural space: No acute findings Heart: No cardiomegaly. Bones/joints: No acute findings. IMPRESSION: No acute cardiopulmonary process.
[2023-05-09] MEDS ORDERED: HEPARIN SODIUM,PORCINE/PF 5,000 UNIT/0.5 ML SYRINGE SQ SCH (08:00)
[2023-05-09 08:31] VITALS: RESP 18
--- NOTE | 2023-05-09 10:15 | P.PN ---
Progress Note - Text Progress Note Date: 05/09/23 I went into to see patient and he reports that he does not remember yesterday or if he was trying to harm himself with alcohol. He does report currently feeling depressed and suicidal. He then start shaking. I stated that we would have EPS nursing see the patient. I explained to him that he should not experience physically withdrawal from alcohol as he was hospitalized for 7 days and released yesterday, so there will be no need for Ativan. Consult placed for psych. After I left the room nursing approached me stating that patient says he is no longer suicidal. Await EPS assessment if cleared he will be able to be discharged today.
--- NOTE | 2023-05-09 13:14 | P.CN ---
Psychiatric Consult - . Consult date: 05/09/23 Consult:: 05/09/23 12:48 IDENTIFYING DATA: Patient is a 37-year-old single, homeless, male with significant history of schizoaffective disorder, depressive type who presented to the hospital yesterday with alcohol intoxication. HPI: Patient presented to the hospital yesterday with alcohol intoxication. Patient was just discharged from the mental health unit yesterday and was brought in via EMS for alcohol intoxication in public. Patient had a urine drug screen which is positive for TCAs and marijuana. His blood alcohol level was 330. Patient has a chronic history of schizoaffective disorder and also polysubstance abuse. He received the Haldol D 200 mg IM injection on 05/08. Patient is currently being followed by [facility] in the act team. Patient was seen today after being consulted by medicine for psychiatric evaluation. Patient was laying in bed and was directable and agreeableto news writer. He claims that he "got drunk" after leaving the hospital. He continues to have poverty of content and was fairly vague and evasive. He states that he drank about 2 pints of whiskey that day before coming into the hospital. He states that he "blacked out" and was brought in by EMS. He states that at this time he is denying any depression, he is stating that he is mildly anxious and was fairly focused with the nurse on obtaining Ativan. He claims that his sleep is fair, appetite is fair. At this time is denying any suicidal or homicidal ideations intent or plan, denying any auditory or visual hallucinations. PAST PSYCHIATRIC HISTORY: Patient has previous diagnoses of schizoaffective disorder, depressive type, alcohol use disorder, cocaine use disorder, cannabis use disorder, methamphetamine abuse, nicotine dependence. He is currently on Haldol Decanoate 200 mg IM q2 weeks, with his last known dose given on 03/24. He was previously on Seroquel, and BuSpar, Effexor and also Haldol. He was last discharged from our psychiatric unit yesterday after being admitted for 7 days. he has a hx of several suicide attempts and drugs overdoses. PMH: Past Medical History: No Reported History, Unable to Obtain, GERD/Reflux, Hypertension, Liver Disease Additional Past Medical History / Comment(s): Hepatitis C, DDD, back pain, bilateral carpel tunnel syndrome. He reports that he has heart disease that was found when he had kidney problems but he denies having a stress test or cardiac catheterization. History of Any Multi-Drug Resistant Organisms: None Reported MDRO Source:: unknown Past Surgical History: No Surgical Hx Reported, Unable to Obtain Additional Past Surgical History / Comment(s): Pt states he has had numerous "cysts" removed from where he injected IV drugs. Past Anesthesia/Blood Transfusion Reactions: No Reported Reaction, Unable to Obtain Additional Past Anesthesia/Blood Transfusion Reaction / Comment(s): Pt states he has never had surgery. Past Psychological History: Anxiety, Depression Smoking Status: Current every day smoker Past Alcohol Use History: None Reported Past Drug Use History: Heroin, Marijuana, Methamphetamine ALLERGIES: NO KNOWN DRUG ALLERGIES CHEMICAL DEPENDENCY HISTORY: Patient uses cocaine, marijuana, methamphetamines, and amphetamines. He is also a daily tobacco user. He reported a heavy history of etoh abuse in the past, states his last drink was the day of coming into the hospital. currently denying any withdrawal sx except for anxiety FAMILY PSYCHIATRIC/SUBSTANCE USE HISTORY: No reported family psychiatric history SOCIAL HISTORY: Patient is currently homeless. He is . He has his GED. MENTAL STATUS EXAM: General Appearance: Patient appears to be dischveled in appearance stated age is alert, directable, and concrete. evasive, Patient appears to have slightly disheveled hygiene and grooming. Behavior: Patient is seated without any agitated behavior. Patient displays medication seeking behavior. Speech: Patient's speech is fluent and nonpressured. Monotone. Mood/Affect: Patient reports their mood is anxious, affect is constricted Suicidality/Homicidality: Patient endorses suicidal ideation. He denies any homicidal ideation. Perceptions: Patient denies any visual hallucinations and denies any auditory hallucinations Though content/process: There is no evidence of any delusional thought content. focused on medications. concrete Memory and concentration: AOX3, grossly intact for the purposes of this session. Can spell "WORLD" backwards Judgment and insight: chronically poor/impulsive IMPRESSIONS: Schizoaffective disorder, depressive type Methamphetamine use disorder Cannabis use disorder Alcohol use disorder Nicotine dependence Malingering PLAN: -At this time patient DOES NOT meet criteria for inpatient psychiatric admission. -Would recommend the following medication changes/additions: Patient is med seeking and a history of feigning or exaggerating his sx to get controlled meds, therefore would recommend avoiding controlled meds including BZD and neurontin. patient received Haldol Dec 200 mg IM PENA on 05/08 and will be due for next dose by act team on 05/22. already perscribed vistaril 50 mg daily prn for anxiety on his last dc from [facility]. -spoke with ER nurse and EPS nurse to coordinate discharge plan. patient was offered long term and rehab however is refusing it at this time. EPS nurse to touch base with [facility] and ACT team to coordinate care and follow up -Psychiatry will sign off at this time -Please contact with any questions.
--- NOTE | 2023-05-09 13:41 | P.DS ---
Providers Date of admission: 05/09/23 00:05 Expected date of discharge: 05/09/23 Attending physician: Seth Flores MD Consults: 05/09/23 08:41 Consult Physician Routine Consulting Provider: Gamal Ruvalcaba Consult Reason/Comments: suicidal ideation Do you want consulting provider notified?: Yes Primary care physician: Physician Nonstaff Assessment: Discharge Diagnosis: ETOH intoxiciation in a known alcohol with alcohol dependency Schizoaffective disorder, depressive type Methamphetamine and cannibis use Nicotine dependence Hospital Course: Patient is a 37-year-old male with schizoaffective disorder, alcohol dependency, and history of multiple intentional drug ingestions who presented to the ER after being found intoxicated and being brought in by EMS. The ER he underwent an extensive evaluation. Laboratory analysis was remarkable for a blood alcohol level 330. Urine drug screen is positive for marijuana and tricyclic antidepressants. Patient initially had some complains of suicidal ideation which she reversed once he discovered he would not be obtaining Ativan for possible alcohol withdrawal. He was then seen by psychiatry and cleared for discharge. Patient was given the options of resources for shoulder and rehab however he refused. He was determined medically stable for discharge. Patient seen and examined at bedside. He is unsure what happened yesterday and reports that he blacked out. He does not know what happened once he left the mental health unit. Vital signs reviewed and stable. General: nontoxic, no distress, appears at stated age Cardiovascular: S1S2 reg, no murmur, positive posterior tibial pulse bilateral, Lungs: CTA bilateral, no rhonchi, no rales , no accessory muscle use Ext: no gross muscle atrophy, no edema b/l lower extremities, no contractures Neuro: CN II-XI grossly intact, no focal neuro deficits Psych: Alert, oriented, blunted affect A total of 25 minutes of time were spent preparing this complex discharge summary. Patient was discharged on 05/09/23. This dictation was prepared using [employer] voice recognition software. Though every attempt is made to correct errors during dictation some may still exist. Patient Condition at Discharge: Fair Plan - Discharge Summary New Discharge Prescriptions: No Action Venlafaxine HCl [Effexor] 150 mg PO DAILY 7 Days #7 tab Fluticasone Nasal [place] [Flonase Nasal [place]] 2 spray EA NOSTRIL DAILY #1 ml Nicotine 14Mg/24Hr Patch [Habitrol] 1 patch TRANSDERM DAILY 14 Days #14 patch hydrOXYzine pamoate [Vistaril] 50 mg PO DAILY PRN 7 Days #14 cap PRN Reason: Anxiety Haloperidol Decanoate [Haldol D] 200 mg IM Q14D #1 each Discharge Medication List Fluticasone Nasal [place] [Flonase Nasal [place]] 2 spray EA NOSTRIL DAILY #1 ml 05/08/23 [Rx] Haloperidol Decanoate [Haldol D] 200 mg IM Q14D #1 each 05/08/23 [Rx] Nicotine 14Mg/24Hr Patch [Habitrol] 1 patch TRANSDERM DAILY 14 Days #14 patch 05/08/23 [Rx] Venlafaxine HCl [Effexor] 150 mg PO DAILY 7 Days #7 tab 05/08/23 [Rx] hydrOXYzine pamoate [Vistaril] 50 mg PO DAILY PRN 7 Days #14 cap 05/08/23 [Rx] Follow up Appointment(s)/Referral(s): Nonstaff,Physician [Primary Care Provider] - 1-2 days
[2023-05-09 14:18] VITALS: BP 143/89; PULSE 103; TEMP 97.9
[2023-05-10] MEDS ORDERED: THIAMINE 100 MG TAB PO SCH (09:00)
== END 2023-05-09 14:26 | disposition home or self-care (01) ==
LOC: EC 20:47 → 6NMEDSUR 05-09 00:05 → 5NMEDONC 05-09 06:19
PROVIDERS: ADMIT Internal Medicine; ATTEND Internal Medicine
DX: F10.120 Alcohol abuse with intoxication, uncomplicated (principal); K21.9 Gastro-esophageal reflux disease without esophagitis; I10 Essential (primary) hypertension; B19.20 Unspecified viral hepatitis C without hepatic coma; F25.1 Schizoaffective disorder, depressive type; F12.90 Cannabis use, unspecified, uncomplicated; F15.90 Other stimulant use, unspecified, uncomplicated; F17.200 Nicotine dependence, unspecified, uncomplicated; E87.20 Acidosis, unspecified; E66.9 Obesity, unspecified; Y90.8 Blood alcohol level of 240 mg/100 ml or more; Z59.00 Homelessness unspecified; Z76.5 Malingerer [conscious simulation]; Z91.51 Personal history of suicidal behavior; Z79.51 Long term (current) use of inhaled steroids; Z79.899 Other long term (current) drug therapy
CPT/HCPCS: 96361 ×2; 96372; 96374; 99285; 36415; 93005; 80053; 83605 ×2; 84484; 85025; 85610; 85730; 81003; 80306; 71045; 72125; 70450; G0378 ×2; G0480; J2060; J3411; 80320

== ENCOUNTER 2023-05-10 11:41 | Emergency (ER) | payer OTHER ==
[2023-05-10 11:51] VITALS: BP 150/93; PULSE 93; RESP 20; TEMP 97
--- NOTE | 2023-05-10 13:04 | ED ---
Overdose HPI - General Chief Complaint: Overdose Stated Complaint: rx overdose Time Seen by Provider: 05/10/23 12:46 Source: patient, RN notes reviewed, old records reviewed Mode of arrival: wheelchair - History of Present Illness Initial Comments: This is a 37-year-old female the ER today. Patient presents today for drug overdose, patient complains of lightheadedness congestion not feeling well weakness, depression. MD Complaint: intentional overdose Intent: unwilling to say Context: Intentional Overdose: relationship problems Context: Accidental Overdose: wanted to get high Associated Symptoms: depression Treatments Prior to Arrival: none - Related Data Previous Rx's Medication Instructions Recorded Fluticasone Nasal [place] [Flonase 2 spray EA NOSTRIL DAILY #1 ml 05/08/23 Nasal [place]] Haloperidol Decanoate [Haldol D] 200 mg IM Q14D #1 each 05/08/23 Nicotine 14Mg/24Hr Patch [Habitrol] 1 patch TRANSDERM DAILY 14 Days 05/08/23 #14 patch Venlafaxine HCl [Effexor] 150 mg PO DAILY 7 Days #7 tab 05/08/23 hydrOXYzine pamoate [Vistaril] 50 mg PO DAILY PRN 7 Days #14 cap 05/08/23 Allergies Allergy/AdvReac Type Severity Reaction Status Date / Time No Known Allergies Allergy Verified 05/10/23 13:11 Review of Systems ROS Statement: Those systems with pertinent positive or pertinent negative responses have been documented in the HPI. ROS Other: All systems not noted in ROS Statement are negative. Past Medical History Past Medical History: No Reported History, Unable to Obtain, GERD/Reflux, Hypertension, Liver Disease Additional Past Medical History / Comment(s): Hepatitis C, DDD, back pain, bilateral carpel tunnel syndrome. He reports that he has heart disease that was found when he had kidney problems but he denies having a stress test or cardiac catheterization. History of Any Multi-Drug Resistant Organisms: None Reported MDRO Source:: unknown Past Surgical History: No Surgical Hx Reported, Unable to Obtain Additional Past Surgical History / Comment(s): Pt states he has had numerous "cysts" removed from where he injected IV drugs. Past Anesthesia/Blood Transfusion Reactions: No Reported Reaction, Unable to Obtain Additional Past Anesthesia/Blood Transfusion Reaction / Comment(s): Pt states he has never had surgery. Past Psychological History: Anxiety, Bipolar, Depression Smoking Status: Current every day smoker - Past Family History Mother Family Medical History: Unable to Obtain, Rheumatoid Arthritis (RA) Additional Family Medical History / Comment(s): Mother is . Father Family Medical History: Coronary Artery Disease (CAD) General Exam General appearance: alert, in no apparent distress Head exam: Present: atraumatic, normocephalic, normal inspection Eye exam: Present: normal appearance, PERRL, EOMI. Absent: scleral icterus, conjunctival injection, periorbital swelling ENT exam: Present: normal exam, mucous membranes moist Neck exam: Present: normal inspection. Absent: tenderness, meningismus, lymphadenopathy Respiratory exam: Present: normal lung sounds bilaterally. Absent: respiratory distress, wheezes, rales, rhonchi, stridor Cardiovascular Exam: Present: regular rate, normal rhythm, normal heart sounds. Absent: systolic murmur, diastolic murmur, rubs, gallop, clicks GI/Abdominal exam: Present: soft, normal bowel sounds. Absent: distended, tenderness, guarding, rebound, rigid Extremities exam: Present: normal inspection, full ROM, normal capillary refill. Absent: tenderness, pedal edema, joint swelling, calf tenderness Back exam: Present: normal inspection Neurological exam: Present: alert, oriented X3, CN II-XII intact Psychiatric exam: Present: normal affect, normal mood Skin exam: Present: warm, dry, intact, normal color. Absent: rash Course Vital Signs 05/10/23 11:45 Temperature 97 F L Pulse Rate 93 Respiratory 20 Rate Blood Pressure 150/93 O2 Sat by Pulse 99 Oximetry - Reevaluation(s) Reevaluation #1: 05/10/23 23:21 Record is reviewed Reevaluation #2: 05/10/23 23:21 Medical clear for psychiatric evaluation Medical Decision Making - Medical Decision Making 37 male to the emergency department for evaluation psychiatric illness. Patient is seen and evaluated by psychiatry Patient is safe for discharge home - Lab Data Result diagrams: 05/10/23 12:28 05/10/23 12:28 Lab Results 05/10/23 05/10/23 05/10/23 Range/Units 12:28 12:28 12:28 WBC 7.9 (3.8-10.6) k/uL RBC 5.06 (4.30-5.90) m/uL Hgb 14.3 (13.0-17.5) gm/dL Hct 42.7 (39.0-53.0) % MCV 84.5 (80.0-100.0) fL MCH 28.2 (25.0-35.0) pg MCHC 33.4 (31.0-37.0) g/dL RDW 13.7 (11.5-15.5) % Plt Count 220 (150-450) k/uL MPV 8.7 Neutrophils % 68 % Lymphocytes % 23 % Monocytes % 6 % Eosinophils % 1 % Basophils % 1 % Neutrophils # 5.4 (1.3-7.7) k/uL Lymphocytes # 1.8 (1.0-4.8) k/uL Monocytes # 0.5 (0-1.0) k/uL Eosinophils # 0.1 (0-0.7) k/uL Basophils # 0.1 (0-0.2) k/uL Sodium 141 (137-145) mmol/L Potassium 4.0 (3.5-5.1) mmol/L Chloride 105 (98-107) mmol/L Carbon Dioxide 25 (22-30) mmol/L Anion Gap 11 mmol/L BUN 11 (9-20) mg/dL Creatinine 0.79 (0.66-1.25) mg/dL Est GFR (CKD-EPI)AfAm >90 (>60 ml/min/1.73 sqM) Est GFR (CKD-EPI)NonAf >90 (>60 ml/min/1.73 sqM) Glucose 91 (74-99) mg/dL Calcium 9.4 (8.4-10.2) mg/dL Phosphorus 2.6 (2.5-4.5) mg/dL Magnesium 2.1 (1.6-2.3) mg/dL Total Bilirubin 0.5 (0.2-1.3) mg/dL AST 40 (17-59) U/L ALT 23 (4-49) U/L Alkaline Phosphatase 49 (38-126) U/L Total Protein 7.8 (6.3-8.2) g/dL Albumin 4.5 (3.5-5.0) g/dL Salicylates <1.0 mg/dL Acetaminophen <10.0 ug/mL Serum Alcohol <10 mg/dL - EKG Data -: EKG Interpreted by Me (EKG shows sinus 89 OK 144 QRS 94 QTC 404) Disposition Clinical Impression: Paranoia (psychosis), Schizoaffective disorder, bipolar type Disposition: HOME SELF-CARE Condition: Good Instructions (If sedation given, give patient instructions): Depression (ED) Is patient prescribed a controlled substance at d/c from ED?: No Referrals: None,Stated [Primary Care Provider] - 1-2 days
[2023-05-10 13:20] LABS: Basophils # (A) 0.1 k/uL (0-0.2); Basophils % (A) 1 %; Eosinophils # (A) 0.1 k/uL (0-0.7); Eosinophils % (A) 1 %; HCT 42.7 % (39.0-53.0); HGB 14.3 gm/dL (13.0-17.5); Lymphocytes # (A) 1.8 k/uL (1.0-4.8); Lymphocytes % (A) 23 %; MCH 28.2 pg (25.0-35.0); MCHC 33.4 g/dL (31.0-37.0); MCV 84.5 fL (80.0-100.0); Mean Platelet Volume 8.7; Monocytes # (A) 0.5 k/uL (0-1.0); Monocytes % (A) 6 %; Neutrophils # (A) 5.4 k/uL (1.3-7.7); Neutrophils % (A) 68 %; Platelet Count 220 k/uL (150-450); RBC 5.06 m/uL (4.30-5.90); RDW 13.7 % (11.5-15.5); WBC 7.9 k/uL (3.8-10.6)
[2023-05-10 13:34] LABS: ALT 23 U/L (4-49); AST 40 U/L (17-59); Acetaminophen <10.0 ug/mL; African American GFR (CKD) >90 (>60 ml/min/1.73 sqM); Albumin 4.5 g/dL (3.5-5.0); Alcohol <10 mg/dL; Alkaline Phosphatase 49 U/L (38-126); Anion Gap 11 mmol/L; Blood Urea Nitrogen 11 mg/dL (9-20); Calcium 9.4 mg/dL (8.4-10.2); Carbon Dioxide 25 mmol/L (22-30); Chloride 105 mmol/L (98-107); Glucose 91 mg/dL (74-99); Magnesium 2.1 mg/dL (1.6-2.3); Non-African American GFR(CKD) >90 (>60 ml/min/1.73 sqM); Phosphorus 2.6 mg/dL (2.5-4.5); Salicylate <1.0 mg/dL; Sodium 141 mmol/L (137-145); Total Bilirubin 0.5 mg/dL (0.2-1.3); Total Protein 7.8 g/dL (6.3-8.2)
[2023-05-10] MEDS ORDERED: LORazepam 1 MG TAB PO STA (16:39)
== END 2023-05-10 18:17 | disposition home or self-care (01) ==
LOC: EC 11:41
DX: F25.0 Schizoaffective disorder, bipolar type (principal); F22 Delusional disorders; I10 Essential (primary) hypertension; Z86.59 Personal history of other mental and behavioral disorders; F17.200 Nicotine dependence, unspecified, uncomplicated
CPT/HCPCS: 36415; 93005; 80053; 83735; 84100; 85025; 80143; 80179; 99284; G0480; 80320

== ENCOUNTER 2023-07-04 07:14 | Inpatient (IN) | payer MEDICAID, OTHER ==
[2023-07-04] MEDS ORDERED: SODIUM CHLORIDE 0.9% 1,000 ML IV STA (07:33)
[2023-07-04] MEDS ORDERED: ACTIVATED CHARCOAL-SORBITOL 50 GM/240 ML BOTTLE PO STA (07:34)
--- NOTE | 2023-07-04 07:38 | ED ---
General Adult HPI - General Chief complaint: Psychiatric Symptoms Stated complaint: mental health Time Seen by Provider: 07/04/23 07:20 Source: patient, RN notes reviewed, old records reviewed Mode of arrival: EMS Limitations: no limitations - History of Present Illness Initial comments: 37-year-old male presents for psychiatric evaluation and attempted suicide. Patient states that he took between 30 and 60 pills on an unknown medication which was not his 30 minutes prior to arrival. He states that it was either|, Seroquel, or Lexapro but is uncertain which medication. He denies physical symptoms at this time, no vomiting. He states this was a suicide attempt. - Related Data Home Medications Medication Instructions Recorded Confirmed Venlafaxine HCl [Effexor XR] 150 mg PO DAILY 07/04/23 07/04/23 busPIRone HCL [Buspar] 30 mg PO BID 07/04/23 07/04/23 Previous Rx's Medication Instructions Recorded Haloperidol Decanoate [Haldol D] 200 mg IM Q14D #1 each 05/08/23 Allergies Allergy/AdvReac Type Severity Reaction Status Date / Time No Known Allergies Allergy Verified 07/04/23 19:27 Review of Systems ROS Statement: Those systems with pertinent positive or pertinent negative responses have been documented in the HPI. ROS Other: All systems not noted in ROS Statement are negative. Past Medical History Past Medical History: No Reported History, Unable to Obtain, GERD/Reflux, Hypertension, Liver Disease Additional Past Medical History / Comment(s): Hepatitis C, DDD, back pain, bilateral carpel tunnel syndrome. He reports that he has heart disease that was found when he had kidney problems but he denies having a stress test or cardiac catheterization. History of Any Multi-Drug Resistant Organisms: None Reported MDRO Source:: unknown Past Surgical History: No Surgical Hx Reported, Unable to Obtain Additional Past Surgical History / Comment(s): Pt states he has had numerous "cysts" removed from where he injected IV drugs. Past Anesthesia/Blood Transfusion Reactions: No Reported Reaction, Unable to Obtain Additional Past Anesthesia/Blood Transfusion Reaction / Comment(s): Pt states he has never had surgery. Past Psychological History: Anxiety, Bipolar, Depression, Schizophrenia Smoking Status: Current every day smoker - Past Family History Mother Family Medical History: Unable to Obtain, Rheumatoid Arthritis (RA) Additional Family Medical History / Comment(s): Mother is . Father Family Medical History: Coronary Artery Disease (CAD) General Exam Limitations: no limitations General appearance: alert, in no apparent distress Head exam: Present: atraumatic, normocephalic Eye exam: Present: normal appearance, PERRL ENT exam: Present: normal exam Neck exam: Present: normal inspection Respiratory exam: Present: normal lung sounds bilaterally. Absent: respiratory distress, wheezes Cardiovascular Exam: Present: regular rate, normal rhythm GI/Abdominal exam: Present: soft. Absent: distended, tenderness, guarding Extremities exam: Present: normal inspection, normal capillary refill Neurological exam: Present: alert, oriented X3, CN II-XII intact. Absent: motor sensory deficit Psychiatric exam: Present: depressed, suicidal ideation Skin exam: Present: warm, dry, intact. Absent: cyanosis, diaphoretic Course Vital Signs 07/04/23 07/04/23 07/04/23 07:26 07:36 08:00 Temperature 97 F L Pulse Rate 62 89 Respiratory 16 18 Rate Blood Pressure 159/92 141/103 141/103 O2 Sat by Pulse 98 98 99 Oximetry 07/04/23 07/04/23 07/04/23 09:00 09:37 10:00 Temperature Pulse Rate 64 100 70 Respiratory 11 L 20 16 Rate Blood Pressure 150/85 135/65 148/68 O2 Sat by Pulse 99 98 96 Oximetry 07/04/23 07/04/23 07/04/23 11:00 12:00 13:00 Temperature Pulse Rate 96 60 61 Respiratory Rate Blood Pressure 148/88 138/127 126/65 O2 Sat by Pulse Oximetry 07/04/23 14:00 Temperature Pulse Rate 63 Respiratory 16 Rate Blood Pressure 137/77 O2 Sat by Pulse 99 Oximetry - Reevaluation(s) Reevaluation #1: 07/04/23 1000 Patient cleared for EPS Medical Decision Making - Medical Decision Making Was pt. sent in by a medical professional or institution (, PA, DAG SPRAYER, urgent care, hospital, or snf...) When possible be specific @ -No Did you speak to anyone other than the patient for history (EMS, parent, family, police, friend...)? What history was obtained from this source @ -No Did you review nursing and triage notes (agree or disagree)? Why? @ -I reviewed and agree with nursing and triage notes Were old charts reviewed (outside hosp., previous admission, EMS record, old EKG, old radiological studies, urgent care reports/EKG's, snf records)? Report findings @ -No old charts were reviewed Differential Diagnosis (chest pain, altered mental status, abdominal pain women, abdominal pain men, vaginal bleeding, weakness, fever, dyspnea, syncope, headache, dizziness, GI bleed, back pain, seizure, CVA, palpatations, mental health, musculoskeletal)? @ -[Differential Mental Health Depression, anxiety, bipolar, psychosis, schizophrenia, borderline personality, situational depression, adjustment disorder, behavioral disorder, brain tumor, malingering, substance abuse, encephalopathy, medication reaction, dementia, hypothyroidism, degenerative neurologic disorder, lupus.... This is not meant to be all-inclusive list EKG interpreted by me (3pts min.). @ -EKG: Sinus bradycardia rate of 57, CT interval 144, QRS duration 93, QTC [address] segment elevation. X-rays interpreted by me (1pt min.). @ -None done CT interpreted by me (1pt min.). @ -None done U/S interpreted by me (1pt. min.). @ -None done What testing was considered but not performed or refused? (CT, X-rays, U/S, labs)? Why? @ -None What meds were considered but not given or refused? Why? @ -None Did you discuss the management of the patient with other professionals (professionals i.e. , PA, DAG SPRAYER, lab, RT, psych nurse, high school social science teacher, forklift material handler, teacher, planned giving officer, manager rn case)? Give summary @ -No Was smoking cessation discussed for >3mins.? @ -No Was critical care preformed (if so, how long)? @ -No Were there social determinants of health that impacted care today? How? (Homelessness, low income, unemployed, alcoholism, drug addiction, transportation, low edu. Level, literacy, decrease access to med. care, [place] [facility], rehab)? @ -No Was there de-escalation of care discussed even if they declined (Discuss DNR or withdrawal of care, Hospice)? DNR status @ -No What co-morbidities impacted this encounter? (DM, HTN, Smoking, COPD, CAD, Cancer, CVA, ARF, Chemo, Hep., AIDS, mental health diagnosis, sleep apnea, morbid obesity)? @ -None Was patient admitted / discharged? Hospital course, mention meds given and route, prescriptions, significant lab abnormalities, going to OR and other pertinent info. @ Patient was admitted for psychiatric evaluation and treatment Undiagnosed new problem with uncertain prognosis? @ -No Drug Therapy requiring intensive monitoring for toxicity (Heparin, Nitro, Insulin, Cardizem)? @ -No Were any procedures done? @ -No Diagnosis/symptom? @ -Suicide attempt Acute, or Chronic, or Acute on Chronic? @ -Acute Uncomplicated (without systemic symptoms) or Complicated (systemic symptoms)? @ -default Side effects of treatment? @ -No Exacerbation, Progression, or Severe Exacerbation? @ -No Poses a threat to life or bodily function? How? (Chest pain, USA, SD, pneumonia, PE, COPD, DKA, ARF, appy, cholecystitis, CVA, Diverticulitis, Homicidal, Suic idal, threat to staff... and all critical care pts) @ -[Yes, self-harm - Lab Data Result diagrams: 07/04/23 07:53 07/04/23 07:53 Lab Results 07/04/23 07/04/23 07/04/23 Range/Units 07:53 07:53 07:53 WBC 8.3 (3.8-10.6) k/uL RBC 5.29 (4.30-5.90) m/uL Hgb 15.3 (13.0-17.5) gm/dL Hct 43.8 (39.0-53.0) % MCV 82.8 (80.0-100.0) fL MCH 28.9 (25.0-35.0) pg MCHC 34.8 (31.0-37.0) g/dL RDW 13.9 (11.5-15.5) % Plt Count 243 (150-450) k/uL MPV 8.7 Neutrophils % 71 % Lymphocytes % 19 % Monocytes % 7 % Eosinophils % 1 % Basophils % 1 % Neutrophils # 5.9 (1.3-7.7) k/uL Lymphocytes # 1.6 (1.0-4.8) k/uL Monocytes # 0.6 (0-1.0) k/uL Eosinophils # 0.1 (0-0.7) k/uL Basophils # 0.0 (0-0.2) k/uL PT 11.4 (9.0-12.0) sec INR 1.1 (<1.2) Sodium (137-145) mmol/L Potassium (3.5-5.1) mmol/L Chloride (98-107) mmol/L Carbon Dioxide (22-30) mmol/L Anion Gap mmol/L BUN (9-20) mg/dL Creatinine (0.66-1.25) mg/dL Est GFR (CKD-EPI)AfAm (>60 ml/min/1.73 sqM) Est GFR (CKD-EPI)NonAf (>60 ml/min/1.73 sqM) Glucose (74-99) mg/dL Estimated Ave Glu mg/dL mg/dL Hemoglobin A1c (<=6.0) % Lactic Ac Sepsis Rflx Plasma Lactic Acid Sohail (0.7-2.0) mmol/L Calcium (8.4-10.2) mg/dL Magnesium (1.6-2.3) mg/dL Total Bilirubin (0.2-1.3) mg/dL AST (17-59) U/L ALT (4-49) U/L Alkaline Phosphatase (38-126) U/L Total Protein (6.3-8.2) g/dL Albumin (3.5-5.0) g/dL TSH (0.465-4.680) mIU/L Urine Color Light Red Urine Appearance Clear (Clear) Urine pH 6.0 (5.0-8.0) Ur Specific [place] 1.022 (1.001-1.035) Urine Protein Trace H (Negative) Urine Glucose (UA) Negative (Negative) Urine Ketones Negative (Negative) Urine Blood Negative (Negative) Urine Nitrite Negative (Negative) Urine Bilirubin Negative (Negative) Urine Urobilinogen 3.0 (<2.0) mg/dL Ur Leukocyte Esterase Negative (Negative) Salicylates mg/dL Urine Opiates Screen Detected H (NotDetected) Ur Oxycodone Screen Not Detected (NotDetected) Urine Methadone Screen Not Detected (NotDetected) Ur Propoxyphene Screen Not Detected (NotDetected) Acetaminophen ug/mL Ur Barbiturates Screen Not Detected (NotDetected) U Tricyclic Antidepress Not Detected (NotDetected) Ur Phencyclidine Scrn Not Detected (NotDetected) Ur Amphetamines Screen Detected H (NotDetected) U Methamphetamines Scrn Detected H (NotDetected) U Benzodiazepines Scrn Detected H (NotDetected) Urine Cocaine Screen Detected H (NotDetected) U Marijuana (THC) Screen Detected H (NotDetected) Serum Alcohol mg/dL Coronavirus (PCR) (Not Detectd) 07/04/23 07/04/23 07/04/23 Range/Units 07:53 07:53 07:53 WBC (3.8-10.6) k/uL RBC (4.30-5.90) m/uL Hgb (13.0-17.5) gm/dL Hct (39.0-53.0) % MCV (80.0-100.0) fL MCH (25.0-35.0) pg MCHC (31.0-37.0) g/dL RDW (11.5-15.5) % Plt Count (150-450) k/uL MPV Neutrophils % % Lymphocytes % % Monocytes % % Eosinophils % % Basophils % % Neutrophils # (1.3-7.7) k/uL Lymphocytes # (1.0-4.8) k/uL Monocytes # (0-1.0) k/uL Eosinophils # (0-0.7) k/uL Basophils # (0-0.2) k/uL PT (9.0-12.0) sec INR (<1.2) Sodium 138 (137-145) mmol/L Potassium 3.6 (3.5-5.1) mmol/L Chloride 102 (98-107) mmol/L Carbon Dioxide 28 (22-30) mmol/L Anion Gap 8 mmol/L BUN 9 (9-20) mg/dL Creatinine 0.77 (0.66-1.25) mg/dL Est GFR (CKD-EPI)AfAm >90 (>60 ml/min/1.73 sqM) Est GFR (CKD-EPI)NonAf >90 (>60 ml/min/1.73 sqM) Glucose 102 H (74-99) mg/dL Estimated Ave Glu mg/dL 111 mg/dL Hemoglobin A1c 5.5 (<=6.0) % Lactic Ac Sepsis Rflx Plasma Lactic Acid Sohail (0.7-2.0) mmol/L Calcium 9.7 (8.4-10.2) mg/dL Magnesium 2.1 (1.6-2.3) mg/dL Total Bilirubin 0.5 (0.2-1.3) mg/dL AST 33 (17-59) U/L ALT 26 (4-49) U/L Alkaline Phosphatase 61 (38-126) U/L Total Protein 8.0 (6.3-8.2) g/dL Albumin 4.5 (3.5-5.0) g/dL TSH 0.742 (0.465-4.680) mIU/L Urine Color Urine Appearance (Clear) Urine pH (5.0-8.0) Ur Specific [place] (1.001-1.035) Urine Protein (Negative) Urine Glucose (UA) (Negative) Urine Ketones (Negative) Urine Blood (Negative) Urine Nitrite (Negative) Urine Bilirubin (Negative) Urine Urobilinogen (<2.0) mg/dL Ur Leukocyte Esterase (Negative) Salicylates <1.0 mg/dL Urine Opiates Screen (NotDetected) Ur Oxycodone Screen (NotDetected) Urine Methadone Screen (NotDetected) Ur Propoxyphene Screen (NotDetected) Acetaminophen <10.0 ug/mL Ur Barbiturates Screen (NotDetected) U Tricyclic Antidepress (NotDetected) Ur Phencyclidine Scrn (NotDetected) Ur Amphetamines Screen (NotDetected) U Methamphetamines Scrn (NotDetected) U Benzodiazepines Scrn (NotDetected) Urine Cocaine Screen (NotDetected) U Marijuana (THC) Screen (NotDetected) Serum Alcohol <10 mg/dL Coronavirus (PCR) (Not Detectd) 07/04/23 07/04/23 07/04/23 Range/Units 15:00 15:04 15:49 WBC (3.8-10.6) k/uL RBC (4.30-5.90) m/uL Hgb (13.0-17.5) gm/dL Hct (39.0-53.0) % MCV (80.0-100.0) fL MCH (25.0-35.0) pg MCHC (31.0-37.0) g/dL RDW (11.5-15.5) % Plt Count (150-450) k/uL MPV Neutrophils % % Lymphocytes % % Monocytes % % Eosinophils % % Basophils % % Neutrophils # (1.3-7.7) k/uL Lymphocytes # (1.0-4.8) k/uL Monocytes # (0-1.0) k/uL Eosinophils # (0-0.7) k/uL Basophils # (0-0.2) k/uL PT (9.0-12.0) sec INR (<1.2) Sodium (137-145) mmol/L Potassium (3.5-5.1) mmol/L Chloride (98-107) mmol/L Carbon Dioxide (22-30) mmol/L Anion Gap mmol/L BUN (9-20) mg/dL Creatinine (0.66-1.25) mg/dL Est GFR (CKD-EPI)AfAm (>60 ml/min/1.73 sqM) Est GFR (CKD-EPI)NonAf (>60 ml/min/1.73 sqM) Glucose (74-99) mg/dL Estimated Ave Glu mg/dL mg/dL Hemoglobin A1c (<=6.0) % Lactic Ac Sepsis Rflx Y Plasma Lactic Acid Sohail 2.6 H* (0.7-2.0) mmol/L Calcium (8.4-10.2) mg/dL Magnesium (1.6-2.3) mg/dL Total Bilirubin (0.2-1.3) mg/dL AST (17-59) U/L ALT (4-49) U/L Alkaline Phosphatase (38-126) U/L Total Protein (6.3-8.2) g/dL Albumin (3.5-5.0) g/dL TSH (0.465-4.680) mIU/L Urine Color Urine Appearance (Clear) Urine pH (5.0-8.0) Ur Specific [place] (1.001-1.035) Urine Protein (Negative) Urine Glucose (UA) (Negative) Urine Ketones (Negative) Urine Blood (Negative) Urine Nitrite (Negative) Urine Bilirubin (Negative) Urine Urobilinogen (<2.0) mg/dL Ur Leukocyte Esterase (Negative) Salicylates mg/dL Urine Opiates Screen (NotDetected) Ur Oxycodone Screen (NotDetected) Urine Methadone Screen (NotDetected) Ur Propoxyphene Screen (NotDetected) Acetaminophen ug/mL Ur Barbiturates Screen (NotDetected) U Tricyclic Antidepress (NotDetected) Ur Phencyclidine Scrn (NotDetected) Ur Amphetamines Screen (NotDetected) U Methamphetamines Scrn (NotDetected) U Benzodiazepines Scrn (NotDetected) Urine Cocaine Screen (NotDetected) U Marijuana (THC) Screen (NotDetected) Serum Alcohol mg/dL Coronavirus (PCR) Not Detected (Not Detectd) Disposition Clinical Impression: Overdose, Depression Disposition: ADMITTED IP TO THIS HOSP Condition: Stable Is patient prescribed a controlled substance at d/c from ED?: No Time of Disposition: 09:40
[2023-07-04 08:04] LABS: Basophils % (A) 1 %; Eosinophils # (A) 0.1 k/uL (0-0.7); Eosinophils % (A) 1 %; HCT 43.8 % (39.0-53.0); HGB 15.3 gm/dL (13.0-17.5); Lymphocytes # (A) 1.6 k/uL (1.0-4.8); Lymphocytes % (A) 19 %; MCH 28.9 pg (25.0-35.0); MCHC 34.8 g/dL (31.0-37.0); MCV 82.8 fL (80.0-100.0); Mean Platelet Volume 8.7; Monocytes # (A) 0.6 k/uL (0-1.0); Monocytes % (A) 7 %; Neutrophils # (A) 5.9 k/uL (1.3-7.7); Neutrophils % (A) 71 %; Platelet Count 243 k/uL (150-450); RBC 5.29 m/uL (4.30-5.90); RDW 13.9 % (11.5-15.5); WBC 8.3 k/uL (3.8-10.6)
[2023-07-04 08:08] LABS: Appearance,Urine Clear (Clear); Bilirubin,Urine Negative (Negative); Blood,Urine Negative (Negative); Color,Urine Light Red; Glucose,Urine (UA) Negative (Negative); Ketones,Urine Negative (Negative); Leukocyte Esterase,Urine Negative (Negative); Nitrite,Urine Negative (Negative); Protein,Urine Trace (Negative); Specific Gravity,Urine 1.022 (1.001-1.035)
[2023-07-04 08:23] LABS: INR 1.1 (<1.2); Prothrombin Time 11.4 sec (9.0-12.0)
[2023-07-04 08:24] LABS: ALT 26 U/L (4-49); AST 33 U/L (17-59); Acetaminophen <10.0 ug/mL; African American GFR (CKD) >90 (>60 ml/min/1.73 sqM); Albumin 4.5 g/dL (3.5-5.0); Alcohol <10 mg/dL; Alkaline Phosphatase 61 U/L (38-126); Anion Gap 8 mmol/L; Blood Urea Nitrogen 9 mg/dL (9-20); Calcium 9.7 mg/dL (8.4-10.2); Carbon Dioxide 28 mmol/L (22-30); Chloride 102 mmol/L (98-107); Glucose 102 mg/dL (74-99); Magnesium 2.1 mg/dL (1.6-2.3); Non-African American GFR(CKD) >90 (>60 ml/min/1.73 sqM); Potassium 3.6 mmol/L (3.5-5.1); Salicylate <1.0 mg/dL; Sodium 138 mmol/L (137-145); Total Bilirubin 0.5 mg/dL (0.2-1.3)
[2023-07-04 08:25] LABS: Amphetamine Screen,Urine Detected (NotDetected); Barbiturate Screen,Urine Not Detected (NotDetected); Benzodiazepines Screen,Urine Detected (NotDetected); Cocaine Screen,Urine Detected (NotDetected); Methadone Screen, Urine Not Detected (NotDetected); Opiate Screen,Urine Detected (NotDetected); Oxycodone Screen, Urine Not Detected (NotDetected); Phencyclidine Screen,Urine Not Detected (NotDetected); Tricyclic Antidepressant,Urine Not Detected (NotDetected); Urn Cannabinoid Scrn Detected (NotDetected)
[2023-07-04] MEDS ORDERED: hydrOXYzine HCL 50 MG/ML 1 ML VIAL IM PRN (18:05)
[2023-07-04] MEDS ORDERED: MAG HYDROX/AL HYDROX/SIMETH 30 ML CUP PO PRN (18:05)
[2023-07-04] MEDS ORDERED: traZODone HCL 50 MG TAB PO PRN (18:05)
[2023-07-04] MEDS ORDERED: MAGNESIUM HYDROXIDE 2,400 MG/30 ML CUP PO PRN (18:05)
[2023-07-04] MEDS: busPIRone HCl 10 MG TAB PO SCH (21:04)
[2023-07-04] MEDS: NICOTINE 14MG/24HR PATCH TRANSDERM SCH (21:04)
--- NOTE | 2023-07-05 02:55 | P.CONS ---
History of Present Illness - Reason for Consult Consult date: 07/05/23 - History of Present Illness Patient is a 37-year-old male well-known to us with a PMH of schizoaffective disorder, alcohol abuse, substance use who had presented to the emergency room with complaints of depression and suicidal ideation. The patient had reported that he took 60 tablets of an unknown medication belonging to a friend. The patient has no idea which medication it may be. He reports being homeless currently. He denied any physical complaints. He reports being sober from substance use. His urine toxicology however was positive for methamphetamines, benzodiazepines, cocaine, and marijuana. He denied tobacco use. Denied alcohol use. Review of systems: Pertinent positives and negatives as discussed in HPI, a complete review of systems was performed and all other systems are negative. Physical examination: Vital signs reviewed General: non toxic, no distress, appears at stated age, normal weight Derm: no unusual rashes/lesions, no unusual ecchymoses, warm, dry Head: atraumatic, normocephalic, symmetric Eyes: EOMI, no lid lag, anicteric sclera ENT: Nose and ears atraumatic, no thrush, no pharyngeal erythema Neck: trachea midline, supple Mouth: no lip lesion, mucus membranes moist Cardiovascular: S1S2 reg, no murmur, no edema Lungs: CTA bilateral, no rhonchi, no rales , no accessory muscle use Abdominal: soft, nontender to palpation, no guarding Ext: no gross muscle atrophy, no contractures, Neuro: No gross focal neuro deficits noted Psych: Alert, oriented, appropriate affect Assessment: Lactic acidosis Polysubstance abuse Depression and suicidal ideation with intentional overdose Plan: Monitor patient's lactate levels for resolution Advised patient on importance of cessation from substance use Defer management of depression and suicidal ideation to the primary psychiatry service Thank you for allowing us to participate in the care of this patient. We will follow peripherally. Do not hesitate to contact us with questions. Someone can be reached from the [facility] hospitalist group at all hours of the day at [phone]. Past Medical History Past Medical History: No Reported History, Unable to Obtain, GERD/Reflux, Hypertension, Liver Disease Additional Past Medical History / Comment(s): Hepatitis C, DDD, back pain, bilateral carpel tunnel syndrome. He reports that he has heart disease that was found when he had kidney problems but he denies having a stress test or cardiac catheterization. History of Any Multi-Drug Resistant Organisms: None Reported MDRO Source:: unknown Past Surgical History: No Surgical Hx Reported, Unable to Obtain Additional Past Surgical History / Comment(s): Pt states he has had numerous "cysts" removed from where he injected IV drugs. Past Anesthesia/Blood Transfusion Reactions: No Reported Reaction, Unable to Obtain Additional Past Anesthesia/Blood Transfusion Reaction / Comm: Pt states he has never had surgery. Past Psychological History: Anxiety, Bipolar, Depression, Schizophrenia Additional Psychological History / Comment(s): He has had multiple [facility] mental health admissions. Smoking Status: Current every day smoker Past Alcohol Use History: Occasional Additional Past Alcohol Use History / Comment(s): Pt started smoking in 1994 and smokes 1ppd Past Drug Use History: Heroin, Marijuana, Methamphetamine Additional Drug Use History / Comment(s): Pt states he has used drugs in the past but none recently d/t no money. 12/15/21 UDS +marijuana. Denies using drugs this admission but has has meth, amph, and marajuana in his drug screen 03-09-23. - Past Family History Mother Family Medical History: Unable to Obtain, Rheumatoid Arthritis (RA) Additional Family Medical History / Comment(s): Mother is . Father Family Medical History: Coronary Artery Disease (CAD) Medications and Allergies Home Medications Medication Instructions Recorded Confirmed Type Haloperidol Decanoate [Haldol D] 200 mg IM Q14D #1 each 05/08/23 07/04/23 Rx Venlafaxine HCl [Effexor XR] 150 mg PO DAILY 07/04/23 07/04/23 History busPIRone HCL [Buspar] 30 mg PO BID 07/04/23 07/04/23 History Allergies Allergy/AdvReac Type Severity Reaction Status Date / Time No Known Allergies Allergy Verified 07/04/23 19:27 Physical Exam Vitals: Vital Signs Temp Pulse Pulse Resp BP BP Pulse Ox 07/04/23 18:25 97.7 F 65 18 161/98 98 07/04/23 14:00 63 16 137/77 99 07/04/23 13:00 61 126/65 07/04/23 12:00 60 138/127 07/04/23 11:00 96 148/88 07/04/23 10:00 70 16 148/68 96 07/04/23 09:37 100 20 135/65 98 07/04/23 09:00 64 11 L 150/85 99 07/04/23 08:00 89 18 141/103 99 07/04/23 07:36 141/103 98 07/04/23 07:26 97 F L 62 16 159/92 98 Intake and Output 07/04/23 07/04/23 07/05/23 14:59 22:59 06:59 Other: Weight 97.976 kg 89.131 kg Results CBC & Chem 7: 07/04/23 07:53 07/04/23 07:53 Labs: Abnormal Lab Results - Last 24 Hours (Table) 07/04/23 07/04/23 07/04/23 Range/Units 07:53 07:53 15:00 Glucose 102 H (74-99) mg/dL Plasma Lactic Acid Sohail 2.6 H* (0.7-2.0) mmol/L Urine Protein Trace H (Negative) Urine Opiates Screen Detected H (NotDetected) Ur Amphetamines Screen Detected H (NotDetected) U Methamphetamines Scrn Detected H (NotDetected) U Benzodiazepines Scrn Detected H (NotDetected) Urine Cocaine Screen Detected H (NotDetected) U Marijuana (THC) Screen Detected H (NotDetected)
[2023-07-05 06:58] VITALS: RESP 16
[2023-07-05] MEDS: busPIRone HCl 10 MG TAB PO SCH ×2 (08:44→20:30)
[2023-07-05] MEDS: NICOTINE 14MG/24HR PATCH TRANSDERM SCH (08:44)
[2023-07-05] MEDS: hydrOXYzine HCL 25 MG TAB PO PRN ×2 (08:47→15:45)
[2023-07-05 10:13] LABS: Chol/HDL Ratio 3.69 Ratio; LDL Cholesterol,Calculated 92.6 mg/dL (0.0-131.0)
[2023-07-05] MEDS ORDERED: chlorproMAZINE 25 MG/ML 2 ML AMP IM PRN (12:20)
--- NOTE | 2023-07-05 12:20 | P.HP ---
Psychiatric H&P - . H&P Date: 07/05/23 History & Physical: Allergies Allergy/AdvReac Type Severity Reaction Status Date / Time No Known Allergies Allergy Verified 07/04/23 19:27 Vital Signs Temp 97.7 F 07/05/23 06:45 Pulse 69 07/05/23 06:45 Resp 16 07/05/23 06:45 BP 128/68 07/05/23 06:45 Pulse Ox 98 07/04/23 18:25 FiO2 Intake & Output 07/04/23 07/05/23 07/05/23 18:59 06:59 18:59 Weight 89.131 kg Laboratory Last Values WBC 8.3 k/uL (3.8-10.6) 07/04/23 07:53 RBC 5.29 m/uL (4.30-5.90) 07/04/23 07:53 Hgb 15.3 gm/dL (13.0-17.5) 07/04/23 07:53 Hct 43.8 % (39.0-53.0) 07/04/23 07:53 MCV 82.8 fL (80.0-100.0) 07/04/23 07:53 MCH 28.9 pg (25.0-35.0) 07/04/23 07:53 MCHC 34.8 g/dL (31.0-37.0) 07/04/23 07:53 RDW 13.9 % (11.5-15.5) 07/04/23 07:53 Plt Count 243 k/uL (150-450) 07/04/23 07:53 MPV 8.7 07/04/23 07:53 Neutrophils % 71 % 07/04/23 07:53 Lymphocytes % 19 % 07/04/23 07:53 Monocytes % 7 % 07/04/23 07:53 Eosinophils % 1 % 07/04/23 07:53 Basophils % 1 % 07/04/23 07:53 Neutrophils # 5.9 k/uL (1.3-7.7) 07/04/23 07:53 Lymphocytes # 1.6 k/uL (1.0-4.8) 07/04/23 07:53 Monocytes # 0.6 k/uL (0-1.0) 07/04/23 07:53 Eosinophils # 0.1 k/uL (0-0.7) 07/04/23 07:53 Basophils # 0.0 k/uL (0-0.2) 07/04/23 07:53 PT 11.4 sec (9.0-12.0) 07/04/23 07:53 INR 1.1 (<1.2) 07/04/23 07:53 Sodium 138 mmol/L (137-145) 07/04/23 07:53 Potassium 3.6 mmol/L (3.5-5.1) 07/04/23 07:53 Chloride 102 mmol/L (98-107) 07/04/23 07:53 Carbon Dioxide 28 mmol/L (22-30) 07/04/23 07:53 Anion Gap 8 mmol/L 07/04/23 07:53 BUN 9 mg/dL (9-20) 07/04/23 07:53 Creatinine 0.77 mg/dL (0.66-1.25) 07/04/23 07:53 Est GFR (CKD-EPI)AfAm >90 (>60 ml/min/1.73 sqM) 07/04/23 07:53 Est GFR (CKD-EPI)NonAf >90 (>60 ml/min/1.73 sqM) 07/04/23 07:53 Glucose 102 mg/dL (74-99) H 07/04/23 07:[address] Glu mg/dL 111 mg/dL 07/04/23 07:53 Hemoglobin A1c 5.5 % (<=6.0) 07/04/23 07:53 Lactic Ac Sepsis Rflx Y 07/04/23 15:49 Plasma Lactic Acid Sohail 2.6 mmol/L (0.7-2.0) H* 07/04/23 15:00 Calcium 9.7 mg/dL (8.4-10.2) 07/04/23 07:53 Magnesium 2.1 mg/dL (1.6-2.3) 07/04/23 07:53 Total Bilirubin 0.5 mg/dL (0.2-1.3) 07/04/23 07:53 AST 33 U/L (17-59) 07/04/23 07:53 ALT 26 U/L (4-49) 07/04/23 07:53 Alkaline Phosphatase 61 U/L (38-126) 07/04/23 07:53 Total Protein 8.0 g/dL (6.3-8.2) 07/04/23 07:53 Albumin 4.5 g/dL (3.5-5.0) 07/04/23 07:53 Triglycerides 102.00 mg/dL (0.00-149.00) 07/04/23 07:53 Cholesterol 155.00 mg/dL (0.00-200.00) 07/04/23 07:53 LDL Cholesterol, Calc 92.6 mg/dL (0.0-131.0) 07/04/23 07:53 VLDL Cholesterol, Calc 20.40 mg/dL (5.00-40.00) 07/04/23 07:53 HDL Cholesterol 42.00 mg/dL (40.00-60.00) 07/04/23 07:53 Cholesterol/HDL Ratio 3.69 Ratio 07/04/23 07:53 TSH 0.742 mIU/L (0.465-4.680) 07/04/23 07:53 Urine Color Light Red 07/04/23 07:53 Urine Appearance Clear (Clear) 07/04/23 07:53 Urine pH 6.0 (5.0-8.0) 07/04/23 07:53 Ur Specific [place] 1.022 (1.001-1.035) 07/04/23 07:53 Urine Protein Trace (Negative) H 07/04/23 07:53 Urine Glucose (UA) Negative (Negative) 07/04/23 07:53 Urine Ketones Negative (Negative) 07/04/23 07:53 Urine Blood Negative (Negative) 07/04/23 07:53 Urine Nitrite Negative (Negative) 07/04/23 07:53 Urine Bilirubin Negative (Negative) 07/04/23 07:53 Urine Urobilinogen 3.0 mg/dL (<2.0) 07/04/23 07:53 Ur Leukocyte Esterase Negative (Negative) 07/04/23 07:53 Salicylates <1.0 mg/dL 07/04/23 07:53 Urine Opiates Screen Detected (NotDetected) H 07/04/23 07:53 Ur Oxycodone Screen Not Detected (NotDetected) 07/04/23 07:53 Urine Methadone Screen Not Detected (NotDetected) 07/04/23 07:53 Ur Propoxyphene Screen Not Detected (NotDetected) 07/04/23 07:53 Acetaminophen <10.0 ug/mL 07/04/23 07:53 Ur Barbiturates Screen Not Detected (NotDetected) 07/04/23 07:53 U Tricyclic Antidepress Not Detected (NotDetected) 07/04/23 07:53 Ur Phencyclidine Scrn Not Detected (NotDetected) 07/04/23 07:53 Ur Amphetamines Screen Detected (NotDetected) H 07/04/23 07:53 U Methamphetamines Scrn Detected (NotDetected) H 07/04/23 07:53 U Benzodiazepines Scrn Detected (NotDetected) H 07/04/23 07:53 Urine Cocaine Screen Detected (NotDetected) H 07/04/23 07:53 U Marijuana (THC) Screen Detected (NotDetected) H 07/04/23 07:53 Serum Alcohol <10 mg/dL 07/04/23 07:53 Coronavirus (PCR) Not Detected (Not Detectd) 07/04/23 15:04 07/05/23 12:20 IDENTIFYING DATA: Patient is a single, homeless, 37-year-old male with a significant history of schizoaffective disorder and polysubstance abuse who presented to the hospital on 07/04/2023, brought into the emergency department by EMS after reported overdose. HPI: Patient presented to the hospital on 07/04/2023, brought into the hospital by EMS after reported overdose on unknown pills. When evaluated by the EPS nurse, the patient presented as disheveled, with very poor hygiene, very anxious, and responded superficially. He did report suicidal thoughts and int ent by overdose as a patient felt tired of being cold and wet and homeless. The patient has been living behind the [employer] in [facility] however he reportedly lost his tent. He reported to the EPS nurse that he wanted to be . In the emergency department, the patient tested positive for opiates, amphetamines, methamphetamines, benzodiazepines, cocaine, and marijuana. The patient openly admits to using multiple substances. He states that he "relapse." He refuses to go into detail and is unable to provide any clear timeline as to when he used the substances. In regards to mood, he is endorsing significant symptoms of depression. He reports that he is suicidal. He states that he has had very poor sleep, poor appetite, and anhedonia. He reports feelings of hopelessness and helplessness. He does not report any significant signs or symptoms of ronald or hypomania. He denies any increased goal-directed activity, grandiosity, or periods of excessive energy (outside of substance abuse). The patient does not report any auditory or visual hallucinations. He denies any paranoia or other delusions. PAST PSYCHIATRIC HISTORY: Patient has a history of schizoaffective disorder and polysubstance abuse. Last admitted onto our psychiatric unit in April 2023. He is currently under a a CT order and deferral status. He is on Haldol Decanoate 200 mg IM every 2 weeks. His next dose is due on 07/13/2023. Her whole medications include Effexor and Vistaril. The patient has had numerous psychiatric hospitalizations. He is open with [facility]. Has had multiple attempts at suicide by overdose in the past. PMH: Past Medical History: No Reported History, Unable to Obtain, GERD/Reflux, Hypertension, Liver Disease Additional Past Medical History / Comment(s): Hepatitis C, DDD, back pain, bilateral carpel tunnel syndrome. He reports that he has heart disease that was found when he had kidney problems but he denies having a stress test or cardiac catheterization. History of Any Multi-Drug Resistant Organisms: None Reported MDRO Source:: unknown Past Surgical History: No Surgical Hx Reported, Unable to Obtain Additional Past Surgical History / Comment(s): Pt states he has had numerous "cysts" removed from where he injected IV drugs. Past Anesthesia/Blood Transfusion Reactions: No Reported Reaction, Unable to Obtain Additional Past Anesthesia/Blood Transfusion Reaction / Comment(s): Pt states he has never had surgery. Past Psychological History: Anxiety, Bipolar, Depression, Schizophrenia Smoking Status: Current every day smoker ALLERGIES: NO KNOWN DRUG ALLERGIES CHEMICAL DEPENDENCY HISTORY: The patient admits to using all substances. He tested positive for opiates, amphetamines, methamphetamines, benzodiazepines, cocaine, and marijuana. FAMILY PSYCHIATRIC/SUBSTANCE USE HISTORY: No reported family psychiatric history. SOCIAL HISTORY: Patient is currently homeless. He is . He has his GED. MENTAL STATUS EXAM: General Appearance: Patient appears to be stated age is alert, directable, and attempts to cooperate. Patient appears to have very disheveled hygiene and grooming. Behavior: Patient is lying down in bed without any agitated behavior. Speech: Patient's speech is fluent and nonpressured. Monotone. Nonspontaneous. Mood/Affect: Patient reports their mood is depressed, affect is congruent and flat. Suicidality/Homicidality: Patient reports suicidal ideation. He denies any homicidal ideation. Perceptions: Patient denies any visual hallucinations and denies any auditory hallucinations Though content/process: There is no evidence of any delusional thought content and thought process is linear. Memory and concentration: AOX3, grossly intact for the purposes of this session. Can spell "WORLD" backwards Judgment and insight: Very poor STRENGTHS/WEAKNESSES: Unable to identify patient's strengths. Weakness is his polysubstance abuse. INTELLECT: average IMPRESSIONS: Schizoaffective disorder, depressive type by history Methamphetamine use disorder Opiate use disorder Cocaine use disorder Cannabis use disorder Alcohol use disorder Tobacco use disorder Homeless PLAN: -Patient is admitted under deferral status to [facility] for stabilization of psychiatric symptoms and safety. Patient signed adult voluntary form and medication consent and is placed in patient's chart. -Medications : BuSpar 30 mg twice a day for anxiety Trazodone 200 mg daily at bedtime for insomnia Haldol Decanoate 200 mg IM is due on 07/13/2022 -Vistaril PRN for agitation/aggression -Patient was counselled on substance abuse and desired to cut back on use -Patient was informed of the risks, benefits and side effects of the medication and patient verbally consented to taking the medications. Patient signed med consent form and was placed in chart. -Internal Medicine consult to perform medical evaluation and physical. -NRT - nicotine patch -SW on board for discharge planning. Encourage patient to participate in groups to work on coping skills. 07/05/23 12:20
[2023-07-05] MEDS: traZODone HCL 50 MG TAB PO SCH (20:32)
[2023-07-06] MEDS: NICOTINE 14MG/24HR PATCH TRANSDERM SCH (09:02)
[2023-07-06] MEDS: busPIRone HCl 10 MG TAB PO SCH ×2 (09:02→20:16)
--- NOTE | 2023-07-06 10:54 | P.PN ---
Progress Note - Text Progress Note Date: 07/06/23 Interval History: Patient was seen in resting in bed and was directable and agreeable to speak with public relations writer in his room. Currently, the patient is denying any suicidal or homicidal ideation, intention, and/or plan. He is not reporting any auditory or visual hallucinations. He denies any paranoia or other delusions. The patient has been adherent with his medications and is not reporting any significant side effects at this time. He reports no issues regarding his sleep or his appetite. Staff note that he has been primarily isolative to himself in his room. He is however not reporting any medical issues or concerns to this provider. He was informed to let the treatment team know if there are any other problems. Mental Status Exam: General Appearance: Patient appears to be stated age is somewhat somnolent, directable, and cooperative. Behavior: Patient is lying down in bed without any agitated behavior. Poor eye contact. Speech: Patient's speech is fluent and nonpressured. Mood/Affect: Mood is "doing okay," affect is congruent and flat. Suicidality/Homicidality: Patient denies any suicidal or homicidal ideation. Perceptions: Patient denies any visual hallucinations and denies any auditory hallucinations Though content/process: There is no evidence of any delusional thought content and thought process is linear and goal-directed. Memory and concentration: AOX3, grossly intact for the purposes of this session Judgment and insight: Fair Vital Signs Temp 97.2 F L 07/06/23 05:31 Pulse 80 07/06/23 05:31 Resp 16 07/06/23 05:31 BP 106/67 07/06/23 05:31 Pulse Ox 98 07/04/23 18:25 FiO2 Laboratory Results WBC 8.3 k/uL (3.8-10.6) 07/04/23 07:53 RBC 5.29 m/uL (4.30-5.90) 07/04/23 07:53 Hgb 15.3 gm/dL (13.0-17.5) 07/04/23 07:53 Hct 43.8 % (39.0-53.0) 07/04/23 07:53 MCV 82.8 fL (80.0-100.0) 07/04/23 07:53 MCH 28.9 pg (25.0-35.0) 07/04/23 07:53 MCHC 34.8 g/dL (31.0-37.0) 07/04/23 07:53 RDW 13.9 % (11.5-15.5) 07/04/23 07:53 Plt Count 243 k/uL (150-450) 07/04/23 07:53 MPV 8.7 07/04/23 07:53 Neutrophils % 71 % 07/04/23 07:53 Lymphocytes % 19 % 07/04/23 07:53 Monocytes % 7 % 07/04/23 07:53 Eosinophils % 1 % 07/04/23 07:53 Basophils % 1 % 07/04/23 07:53 Neutrophils # 5.9 k/uL (1.3-7.7) 07/04/23 07:53 Lymphocytes # 1.6 k/uL (1.0-4.8) 07/04/23 07:53 Monocytes # 0.6 k/uL (0-1.0) 07/04/23 07:53 Eosinophils # 0.1 k/uL (0-0.7) 07/04/23 07:53 Basophils # 0.0 k/uL (0-0.2) 07/04/23 07:53 PT 11.4 sec (9.0-12.0) 07/04/23 07:53 INR 1.1 (<1.2) 07/04/23 07:53 Sodium 138 mmol/L (137-145) 07/04/23 07:53 Potassium 3.6 mmol/L (3.5-5.1) 07/04/23 07:53 Chloride 102 mmol/L (98-107) 07/04/23 07:53 Carbon Dioxide 28 mmol/L (22-30) 07/04/23 07:53 Anion Gap 8 mmol/L 07/04/23 07:53 BUN 9 mg/dL (9-20) 07/04/23 07:53 Creatinine 0.77 mg/dL (0.66-1.25) 07/04/23 07:53 Est GFR (CKD-EPI)AfAm >90 (>60 ml/min/1.73 sqM) 07/04/23 07:53 Est GFR (CKD-EPI)NonAf >90 (>60 ml/min/1.73 sqM) 07/04/23 07:53 Glucose 102 mg/dL (74-99) H 07/04/23 07:[address] Glu mg/dL 111 mg/dL 07/04/23 07:53 Hemoglobin A1c 5.5 % (<=6.0) 07/04/23 07:53 Lactic Ac Sepsis Rflx Y 07/04/23 15:49 Plasma Lactic Acid [place] 2.6 mmol/L (0.7-2.0) H* 07/04/23 15:00 Calcium 9.7 mg/dL (8.4-10.2) 07/04/23 07:53 Magnesium 2.1 mg/dL (1.6-2.3) 07/04/23 07:53 Total Bilirubin 0.5 mg/dL (0.2-1.3) 07/04/23 07:53 AST 33 U/L (17-59) 07/04/23 07:53 ALT 26 U/L (4-49) 07/04/23 07:53 Alkaline Phosphatase 61 U/L (38-126) 07/04/23 07:53 Total Protein 8.0 g/dL (6.3-8.2) 07/04/23 07:53 Albumin 4.5 g/dL (3.5-5.0) 07/04/23 07:53 Triglycerides 102.00 mg/dL (0.00-149.00) 07/04/23 07:53 Cholesterol 155.00 mg/dL (0.00-200.00) 07/04/23 07:53 LDL Cholesterol, Calc 92.6 mg/dL (0.0-131.0) 07/04/23 07:53 VLDL Cholesterol, Calc 20.40 mg/dL (5.00-40.00) 07/04/23 07:53 HDL Cholesterol 42.00 mg/dL (40.00-60.00) 07/04/23 07:53 Cholesterol/HDL Ratio 3.69 Ratio 07/04/23 07:53 TSH 0.742 mIU/L (0.465-4.680) 07/04/23 07:53 Urine Color Light Red 07/04/23 07:53 Urine Appearance Clear (Clear) 07/04/23 07:53 Urine pH 6.0 (5.0-8.0) 07/04/23 07:53 Ur Specific [place] 1.022 (1.001-1.035) 07/04/23 07:53 Urine Protein Trace (Negative) H 07/04/23 07:53 Urine Glucose (UA) Negative (Negative) 07/04/23 07:53 Urine Ketones Negative (Negative) 07/04/23 07:53 Urine Blood Negative (Negative) 07/04/23 07:53 Urine Nitrite Negative (Negative) 07/04/23 07:53 Urine Bilirubin Negative (Negative) 07/04/23 07:53 Urine Urobilinogen 3.0 mg/dL (<2.0) 07/04/23 07:53 Ur Leukocyte Esterase Negative (Negative) 07/04/23 07:53 Salicylates <1.0 mg/dL 07/04/23 07:53 Urine Opiates Screen Detected (NotDetected) H 07/04/23 07:53 Ur Oxycodone Screen Not Detected (NotDetected) 07/04/23 07:53 Urine Methadone Screen Not Detected (NotDetected) 07/04/23 07:53 Ur Propoxyphene Screen Not Detected (NotDetected) 07/04/23 07:53 Acetaminophen <10.0 ug/mL 07/04/23 07:53 Ur Barbiturates Screen Not Detected (NotDetected) 07/04/23 07:53 U Tricyclic Antidepress Not Detected (NotDetected) 07/04/23 07:53 Ur Phencyclidine Scrn Not Detected (NotDetected) 07/04/23 07:53 Ur Amphetamines Screen Detected (NotDetected) H 07/04/23 07:53 U Methamphetamines Scrn Detected (NotDetected) H 07/04/23 07:53 U Benzodiazepines Scrn Detected (NotDetected) H 07/04/23 07:53 Urine Cocaine Screen Detected (NotDetected) H 07/04/23 07:53 U Marijuana (THC) Screen Detected (NotDetected) H 07/04/23 07:53 Serum Alcohol <10 mg/dL 07/04/23 07:53 Coronavirus (PCR) Not Detected (Not Detectd) 07/04/23 15:04 Assessment Schizoaffective disorder, depressive type by history Methamphetamine use disorder Opiate use disorder Cocaine use disorder Cannabis use disorder Alcohol use disorder Tobacco use disorder Homeless Plan: -Patient continues to meet criteria for inpatient psychiatric admission for symptom stabilization and safety. Patient has signed adult voluntary form. -Medications: BuSpar 30 mg twice a day for anxiety Trazodone 200 mg daily at bedtime for insomnia Haldol Decanoate 200 mg IM is due on 07/13/2022 -When necessary Vistaril for agitation/aggression. -NRT - nicotine patch -SW on board for discharge planning. Encouraged the patient to participate in milieu.
[2023-07-06] MEDS: ACETAMINOPHEN TAB 325 MG TAB PO PRN (11:53)
[2023-07-06] MEDS: hydrOXYzine HCL 25 MG TAB PO PRN (11:54)
[2023-07-06 12:00] VITALS: BP 134/74; PULSE 89; TEMP 97
[2023-07-06] MEDS: traZODone HCL 50 MG TAB PO SCH (20:16)
[2023-07-07] MEDS: NICOTINE 14MG/24HR PATCH TRANSDERM SCH (08:25)
[2023-07-07] MEDS: busPIRone HCl 10 MG TAB PO SCH ×2 (08:25→20:28)
[2023-07-07] MEDS: hydrOXYzine HCL 25 MG TAB PO PRN ×2 (08:26→14:40)
--- NOTE | 2023-07-07 11:29 | P.PN ---
Progress Note - Text Progress Note Date: 07/07/23 Interval History: Patient was seen resting in bed and was directable and agreeable to speak with scenario writer in his room. The patient is currently not reporting any acute issues or concerns this provider. He reports no suicidal or homicidal ideation, intention, and/or plan. He reports no auditory or visual hallucinations. He denies any paranoia or other delusions. He reports that he is eating and sleeping well. This provider discussed with him the option of inpatient [facility] however he is denying the need for it. He states that upon discharge, he plans to pursue Social Security income in order to obtain housing. Mental Status Exam: Grossly unchanged from yesterday. General Appearance: Patient appears to be stated age is somewhat somnolent, directable, and cooperative. Behavior: Patient is lying down in bed without any agitated behavior. Poor eye contact. Speech: Patient's speech is fluent and nonpressured. Mood/Affect: Mood is "doing okay," affect is congruent and flat. Suicidality/Homicidality: Patient denies any suicidal or homicidal ideation. Perceptions: Patient denies any visual hallucinations and denies any auditory hallucinations Though content/process: There is no evidence of any delusional thought content and thought process is linear and goal-directed. Memory and concentration: AOX3, grossly intact for the purposes of this session Judgment and insight: Fair Vital Signs Temp 97.0 F L 07/06/23 11:50 Pulse 89 07/06/23 11:50 Resp 16 07/06/23 05:31 BP 134/74 07/06/23 11:50 Pulse Ox 98 07/04/23 18:25 FiO2 Assessment Schizoaffective disorder, depressive type by history Methamphetamine use disorder Opiate use disorder Cocaine use disorder Cannabis use disorder Alcohol use disorder Tobacco use disorder Homeless Plan: -Patient continues to meet criteria for inpatient psychiatric admission for symptom stabilization and safety. Patient has signed adult voluntary form. -Medications: BuSpar 30 mg twice a day for anxiety Trazodone 200 mg daily at bedtime for insomnia Haldol Decanoate 200 mg IM is due on 07/13/2022 -When necessary Vistaril for agitation/aggression. -NRT - nicotine patch -SW on board for discharge planning. Encouraged the patient to participate in milieu.
[2023-07-07] MEDS: ACETAMINOPHEN TAB 325 MG TAB PO PRN ×2 (12:28→20:29)
[2023-07-07] MEDS: OLANZapine ODT 5 MG TAB PO PRN (13:28)
[2023-07-07] MEDS: traZODone HCL 50 MG TAB PO SCH (20:28)
[2023-07-07] MEDS ORDERED: OLANZapine ODT 5 MG TAB PO SCH (21:00)
[2023-07-08] MEDS: NICOTINE 14MG/24HR PATCH TRANSDERM SCH (08:27)
[2023-07-08] MEDS: busPIRone HCl 10 MG TAB PO SCH ×2 (08:27→19:36)
[2023-07-08] MEDS: OLANZapine ODT 5 MG TAB PO PRN ×2 (08:29→19:38)
--- NOTE | 2023-07-08 11:56 | P.PN ---
Subjective Progress Note Date: 07/08/23 Principal diagnosis: Assessment Schizoaffective disorder, depressive type by history Methamphetamine use disorder Opiate use disorder Cocaine use disorder Cannabis use disorder Alcohol use disorder Tobacco use disorder Homeless Patient Name: Wilbert Rosenthal Date of : 87 Patient Status: Inpatient Attending Provider: Jurgen Mcmanus Date: 07/08/23 Initialization Date: 07/08/23 Follow-up by Dr. Phani Mosher M.D. Progress Note - Text Progress Note Date: 07/08/23 Interval History: Patient was seen resting in bed and was directable and agreeable to speak with singer songwriter in his room. The patient was laying in bed for that sheets pulled up all the way to his children Patient mostly responded in monosyllables and did not seem to be too interested in getting into a discussion however he did respond to basic questions The patient is currently not reporting any acute issues or concerns this pro vider. He reports no suicidal or homicidal ideation, intention, and/or plan. He reports no auditory or visual hallucinations. He denies any paranoia or other delusions. He reports that he is eating and sleeping well. Mental Status Exam: General Appearance: Patient appears to be stated age is somewhat somnolent, directable, and cooperative. Behavior: Patient is lying down in bed without any agitated behavior. Poor eye contact. Speech: Patient's speech is fluent and nonpressured. Mood/Affect: Mood is "doing okay," affect is congruent and flat. Suicidality/Homicidality: Patient denies any suicidal or homicidal ideation. Perceptions: Patient denies any visual hallucinations and denies any auditory hallucinations Though content/process: There is no evidence of any delusional thought content and thought process is linear and goal-directed. Memory and concentration: AOX3, grossly intact for the purposes of this session Judgment and insight: ? Difficult to assess with limited interaction Assessment Schizoaffective disorder, depressive type by history Methamphetamine use disorder Opiate use disorder Cocaine use disorder Cannabis use disorder Alcohol use disorder Tobacco use disorder Homeless Plan: -Patient continues to meet criteria for inpatient psychiatric admission for symptom stabilization and safety. Patient has signed adult voluntary form. -Medications: BuSpar 30 mg twice a day for anxiety Trazodone 200 mg daily at bedtime for insomnia Haldol Decanoate 200 mg IM is due on 07/13/2022 -When necessary Vistaril for agitation/aggression. -NRT - nicotine patch -SW on board for discharge planning. Encouraged the patient to participate in milieu. Phani Mosher M.D. 07/08/2023 Objective - Vital Signs Vital signs: Vital Signs Temp 97.0 F L 07/06/23 11:50 Pulse 89 07/06/23 11:50 Resp 16 07/06/23 05:31 BP 134/74 07/06/23 11:50 Pulse Ox 98 07/04/23 18:25 FiO2 - Labs CBC & Chem 7: 07/04/23 07:53 07/04/23 07:53
[2023-07-08] MEDS: hydrOXYzine HCL 25 MG TAB PO PRN (13:29)
[2023-07-08] MEDS: ACETAMINOPHEN TAB 325 MG TAB PO PRN ×2 (13:32→19:37)
[2023-07-08] MEDS: traZODone HCL 50 MG TAB PO SCH (19:36)
[2023-07-09] MEDS: hydrOXYzine HCL 25 MG TAB PO PRN ×2 (08:21→15:28)
[2023-07-09] MEDS: NICOTINE 14MG/24HR PATCH TRANSDERM SCH (08:21)
[2023-07-09] MEDS: busPIRone HCl 10 MG TAB PO SCH ×2 (08:21→19:32)
[2023-07-09] MEDS: ACETAMINOPHEN TAB 325 MG TAB PO PRN ×2 (08:22→19:32)
--- NOTE | 2023-07-09 09:20 | P.PN ---
Subjective Progress Note Date: 07/09/23 Principal diagnosis: Assessment Schizoaffective disorder, depressive type by history Methamphetamine use disorder Opiate use disorder Cocaine use disorder Cannabis use disorder Alcohol use disorder Tobacco use disorder Homeless Patient Name: Wilbert Rosenthal Date of : 87 Patient Status: Inpatient Attending Provider: Jurgen Mcmanus Date: 07/09/23 Initialization Date: 07/09/23 Follow-up by Dr. Phani Mosher M.D. Progress Note Date: 07/09/23 Interval History: Patient was seen resting in bed and was seen to be uninterested in having any discussion Patient responds with monosyllables and states that he is feeling better He states that he is tired and wants to sleep pt did not seem to be too interested in getting into a discussion however he did respond to basic questions The patient is currently not reporting any acute issues or concerns this provider. He reports no suicidal or homicidal ideation, intention, and/or plan. He reports no auditory or visual hallucinations. He denies any paranoia or other delusions. He reports that he is eating and sleeping well. Mental Status Exam: General Appearance: Patient appears to be stated age is somewhat somnolent, and uncooperative. Today Behavior: Patient is lying down in bed without any agitated behavior. Poor eye contact. Speech: Patient's speech is fluent and nonpressured. Mood/Affect: Mood is "doing okay," affect is congruent and flat. Suicidality/Homicidality: Patient denies any suicidal or homicidal ideation. Perceptions: Patient denies any visual hallucinations and denies any auditory hallucinations Though content/process: There is no evidence of any delusional thought content and thought process is linear and goal-directed. Memory and concentration: AOX3, grossly intact for the purposes of this session Judgment and insight: ? Difficult to assess with limited interaction Assessment Schizoaffective disorder, depressive type by history Methamphetamine use disorder Opiate use disorder Cocaine use disorder Cannabis use disorder Alcohol use disorder Tobacco use disorder Homeless Plan: -Patient continues to meet criteria for inpatient psychiatric admission for symptom stabilization and safety. Patient has signed adult voluntary form. -Medications: BuSpar 30 mg twice a day for anxiety Trazodone 200 mg daily at bedtime for insomnia Haldol Decanoate 200 mg IM is due on 07/13/2022 -When necessary Vistaril for agitation/aggression. -NRT - nicotine patch -SW on board for discharge planning. Encouraged the patient to participate in milieu. Phani Mosher M.D. 07/09/2023 Objective - Vital Signs Vital signs: Vital Signs Temp 97.0 F L 07/06/23 11:50 Pulse 89 07/06/23 11:50 Resp 16 07/06/23 05:31 BP 134/74 07/06/23 11:50 Pulse Ox 98 07/04/23 18:25 FiO2 - Labs CBC & Chem 7: 07/04/23 07:53 07/04/23 07:53
[2023-07-09] MEDS: OLANZapine ODT 5 MG TAB PO PRN ×2 (13:01→19:32)
[2023-07-09] MEDS: traZODone HCL 50 MG TAB PO SCH (19:32)
[2023-07-10] MEDS: busPIRone HCl 10 MG TAB PO SCH (07:49)
[2023-07-10] MEDS: OLANZapine ODT 5 MG TAB PO PRN (07:49)
[2023-07-10] MEDS: NICOTINE 14MG/24HR PATCH TRANSDERM SCH (07:49)
[2023-07-10] MEDS: ACETAMINOPHEN TAB 325 MG TAB PO PRN (07:49)
[2023-07-10] MEDS: hydrOXYzine HCL 25 MG TAB PO PRN (07:49)
--- NOTE | 2023-07-10 11:54 | P.DS ---
Providers Date of admission: 07/04/23 16:50 Expected date of discharge: 07/10/23 Attending physician: Jurgen Mcmanus MD Primary care physician: Stated None - Discharge Diagnosis(es) (1) Schizoaffective disorder, depressive type Current Visit: Yes Status: Acute Priority: High (2) Substance induced mood disorder Current Visit: Yes Status: Acute Priority: High (3) Cocaine use disorder Current Visit: Yes Status: Chronic Priority: High (4) Methamphetamine use disorder, severe Current Visit: Yes Status: Chronic Priority: High (5) Opioid use disorder, severe, dependence Current Visit: Yes Status: Chronic Priority: High (6) Cannabis use disorder, moderate, dependence Current Visit: Yes Status: Chronic Priority: High (7) Alcohol use disorder, severe, dependence Current Visit: Yes Status: Chronic Priority: High (8) Homeless Current Visit: Yes Status: Chronic Priority: Medium (9) Tobacco use disorder Current Visit: Yes Status: Chronic Priority: Medium Hospital Course: Admission HPI: Patient is a single, homeless, 37-year-old male with a significant history of schizoaffective disorder and polysubstance abuse who presented to the hospital on 07/04/2023, brought into the emergency department by EMS after reported overdose. Patient presented to the hospital on 07/04/2023, brought into the hospital by EMS after reported overdose on unknown pills. When evaluated by the EPS nurse, the patient presented as disheveled, with very poor hygiene, very anxious, and responded superficially. He did report suicidal thoughts and intent by overdose as a patient felt tired of being cold and wet and homeless. The patient has been living behind the [employer] in [facility] however he reportedly lost his tent. He reported to the EPS nurse that he wanted to be . In the emergency department, the patient tested positive for opiates, amphetamines, methamphetamines, benzodiazepines, cocaine, and marijuana. The patient openly admits to using multiple substances. He states that he "relapse." He refuses to go into detail and is unable to provide any clear timeline as to when he used the substances. In regards to mood, he is endorsing significant symptoms of depression. He reports that he is suicidal. He states that he has had very poor sleep, poor appetite, and anhedonia. He reports feelings of hopelessness and helplessness. He does not report any significant signs or symptoms of ronald or hypomania. He denies any increased goal-directed activity, grandiosity, or periods of excessive energy (outside of substance abuse). The patient does not report any auditory or visual hallucinations. He denies any paranoia or other delusions. Patient has a history of schizoaffective disorder and polysubstance abuse. Last admitted onto our psychiatric unit in April 2023. He is currently under [facility] order and deferral status. He is on Haldol Decanoate 200 mg IM every 2 weeks. His next dose is due on 07/13/2023. Her whole medications include Effexor and Vistaril. The patient has had numerous psychiatric hospitalizations. He is open with [facility]. Has had multiple attempts at suicide by overdose in the past. Hospital course: Upon admission to the unit patient was initially presenting as disheveled, uncooperative, and primarily isolative to himself in his room. Patient was however directable and agreeable to commence treatment. Patient got along well with other patients on the unit and followed unit protocol. Patient was compliant with the medications and denied any side effects throughout hospital course. Patient was started on BuSpar for his anxiety and trazodone for insomnia. He has already been receiving Haldol Decanoate and his next dose is due on 07/13/2023. Patient spoke of his stressors and engaged in individual therapy however did not attend most groups. Patient was also seen by medical team for history and physical exam. It should be noted that the patient tested positive for multiple substances. He however downplayed how money substances he was using. Furthermore, the patient was offered inpatient substance abuse rehabilitation to which he denied. As the hospitalization continued, the patient did express a desire to go to [facility]. Over the course of the hospitalization, the patient did have intermittent episodes of elevated anxiety and irritability. He has displayed similar behaviors on our psychiatric unit in the past and was often medication seeking. He was started on Zyprexa Zydis when necessary for his agitation. On the day of discharge, the patient is not reporting any suicidal or homicidal ideation, intention, and/or plan. He is not reporting any auditory or visual hallucinations. He denies any paranoia or other delusions. He has been adherent medications and is not reporting any significant side effects. Patient does have a significant history of substance abuse and was counseled at great length on abstaining from all substances including alcohol, tobacco, marijuana, and all illicit drugs. He is specifically informed to avoid using any methamphetamines. The patient was offered however declined inpatient substance- abuse rehabilitation. He was counseled at length on the points medication adherence and appropriate outpatient follow-up. Furthermore, his medications will be sent to [facility] due to his history of intentional overdose. As the patient no longer met criteria for continued inpatient psychiatric hospitalization, he was subsequently discharged. Mental status exam: General Appearance: Patient appears to be stated age is alert, pleasant, and cooperative. Patient is in no acute distress and has fair hygiene and grooming Behavior: A is calmly lying down in bed without any agitated behavior. Speech: Patient's speech is fluent and nonpressured. Monotone. Mood/Affect: Patient reports their mood is "I'm okay", affect is congruent. Baseline flat. Suicidality/Homicidality: Patient denies any current suicidal or homicidal ideation. Perceptions: Patient denies any auditory or visual hallucinations. Though content/process: There is no evidence of any delusional thought content and thought process is linear and goal-directed. Patient is future oriented Memory and concentration: AOX3, grossly intact for the purposes of this session. Can spell "WORLD" backwards correctly. Judgment and insight: Improved with guarded prognosis Impression: Schizoaffective disorder, depressive type by history Methamphetamine use disorder Opiate use disorder Cocaine use disorder Cannabis use disorder Alcohol use disorder Tobacco use disorder Homeless Plan: -Continue with discharge today as patient has improved and stabilized psychiatrically and is not currently an imminent threat to himself and/or others. Patient will remain at chronically elevated risk due to his polysubstance abuse and homelessness. He also has multiple prior attempts at suicide by overdose often in the context of substance abuse. -Continue medications: BuSpar 30 mg twice a day for anxiety Trazodone 200 mg daily at bedtime for insomnia Haldol Decanoate 200 mg IM is due on 07/13/2022 -Patient was counseled on the need for medication compliance and appropriate follow-up at mental health and also primary care for medical issues. Patient verbalized understanding and agreed. -Social work to arrange for and conduct family meeting to ensure safety upon discharge and answer any questions/concerns. Social work also to arrange for patients follow up appointments with [facility] for psychiatric care along with follow up with primary care provider. -Patient counseled on abstaining from recreational drugs and marijuana and alcohol. Was informed/educated on the adverse effects on their physical and mental health. Patient verbally agreed and understood. Patient was offered substance abuse treatment however declined at this time. -Patient was instructed to return to the hospital or seek immediate medical care if their psychiatric or medical symptoms do worsen or reoccur. -Psychoeducation and supportive therapy provided to patient. Risks and benefits of pharmacological treatment versus the risks and benefits of nontreatment weighed and discussed. Informed consent discussion held. Common side effects of psychotropics discussed such as, but not limited to headache, GI disturbance, sexual dysfunction, movement disorders, sedation, and orthostatic hypotension. Life threatening and blackbox warnings of prescribed medications also discussed. Potential risks of operating a vehicle or heavy machinery discussed with patient at length. Advised on importance of compliance and a reliable and responsible manner. Patient advised to review FDA consumer labeling of all medications prior to taking. Patient verbalized understanding of potential ri sks, and agrees with current treatment plan. Patient advised to medically contact physician/emergency personnel if any acute changes in condition occur. Vital Signs Temp 97.0 F L 07/06/23 11:50 Pulse 89 07/06/23 11:50 Resp 16 07/06/23 05:31 BP 134/74 07/06/23 11:50 Pulse Ox 98 07/04/23 18:25 FiO2 Intake & Output 07/09/23 07/10/23 07/10/23 18:59 06:59 18:59 Weight 90.1 kg Laboratory Results WBC 8.3 k/uL (3.8-10.6) 07/04/23 07:53 RBC 5.29 m/uL (4.30-5.90) 07/04/23 07:53 Hgb 15.3 gm/dL (13.0-17.5) 07/04/23 07:53 Hct 43.8 % (39.0-53.0) 07/04/23 07:53 MCV 82.8 fL (80.0-100.0) 07/04/23 07:53 MCH 28.9 pg (25.0-35.0) 07/04/23 07:53 MCHC 34.8 g/dL (31.0-37.0) 07/04/23 07:53 RDW 13.9 % (11.5-15.5) 07/04/23 07:53 Plt Count 243 k/uL (150-450) 07/04/23 07:53 MPV 8.7 07/04/23 07:53 Neutrophils % 71 % 07/04/23 07:53 Lymphocytes % 19 % 07/04/23 07:53 Monocytes % 7 % 07/04/23 07:53 Eosinophils % 1 % 07/04/23 07:53 Basophils % 1 % 07/04/23 07:53 Neutrophils # 5.9 k/uL (1.3-7.7) 07/04/23 07:53 Lymphocytes # 1.6 k/uL (1.0-4.8) 07/04/23 07:53 Monocytes # 0.6 k/uL (0-1.0) 07/04/23 07:53 Eosinophils # 0.1 k/uL (0-0.7) 07/04/23 07:53 Basophils # 0.0 k/uL (0-0.2) 07/04/23 07:53 PT 11.4 sec (9.0-12.0) 07/04/23 07:53 INR 1.1 (<1.2) 07/04/23 07:53 Sodium 138 mmol/L (137-145) 07/04/23 07:53 Potassium 3.6 mmol/L (3.5-5.1) 07/04/23 07:53 Chloride 102 mmol/L (98-107) 07/04/23 07:53 Carbon Dioxide 28 mmol/L (22-30) 07/04/23 07:53 Anion Gap 8 mmol/L 07/04/23 07:53 BUN 9 mg/dL (9-20) 07/04/23 07:53 Creatinine 0.77 mg/dL (0.66-1.25) 07/04/23 07:53 Est GFR (CKD-EPI)AfAm >90 (>60 ml/min/1.73 sqM) 07/04/23 07:53 Est GFR (CKD-EPI)NonAf >90 (>60 ml/min/1.73 sqM) 07/04/23 07:53 Glucose 102 mg/dL (74-99) H 07/04/23 07:[address] Glu mg/dL 111 mg/dL 07/04/23 07:53 Hemoglobin A1c 5.5 % (<=6.0) 07/04/23 07:53 Lactic Ac Sepsis Rflx Y 07/04/23 15:49 Plasma Lactic Acid S[place] 2.6 mmol/L (0.7-2.0) H* 07/04/23 15:00 Calcium 9.7 mg/dL (8.4-10.2) 07/04/23 07:53 Magnesium 2.1 mg/dL (1.6-2.3) 07/04/23 07:53 Total Bilirubin 0.5 mg/dL (0.2-1.3) 07/04/23 07:53 AST 33 U/L (17-59) 07/04/23 07:53 ALT 26 U/L (4-49) 07/04/23 07:53 Alkaline Phosphatase 61 U/L (38-126) 07/04/23 07:53 Total Protein 8.0 g/dL (6.3-8.2) 07/04/23 07:53 Albumin 4.5 g/dL (3.5-5.0) 07/04/23 07:53 Triglycerides 102.00 mg/dL (0.00-149.00) 07/04/23 07:53 Cholesterol 155.00 mg/dL (0.00-200.00) 07/04/23 07:53 LDL Cholesterol, Calc 92.6 mg/dL (0.0-131.0) 07/04/23 07:53 VLDL Cholesterol, Calc 20.40 mg/dL (5.00-40.00) 07/04/23 07:53 HDL Cholesterol 42.00 mg/dL (40.00-60.00) 07/04/23 07:53 Cholesterol/HDL Ratio 3.69 Ratio 07/04/23 07:53 TSH 0.742 mIU/L (0.465-4.680) 07/04/23 07:53 Urine Color Light Red 07/04/23 07:53 Urine Appearance Clear (Clear) 07/04/23 07:53 Urine pH 6.0 (5.0-8.0) 07/04/23 07:53 Ur Specific [place] 1.022 (1.001-1.035) 07/04/23 07:53 Urine Protein Trace (Negative) H 07/04/23 07:53 Urine Glucose (UA) Negative (Negative) 07/04/23 07:53 Urine Ketones Negative (Negative) 07/04/23 07:53 Urine Blood Negative (Negative) 07/04/23 07:53 Urine Nitrite Negative (Negative) 07/04/23 07:53 Urine Bilirubin Negative (Negative) 07/04/23 07:53 Urine Urobilinogen 3.0 mg/dL (<2.0) 07/04/23 07:53 Ur Leukocyte Esterase Negative (Negative) 07/04/23 07:53 Salicylates <1.0 mg/dL 07/04/23 07:53 Urine Opiates Screen Detected (NotDetected) H 07/04/23 07:53 Ur Oxycodone Screen Not Detected (NotDetected) 07/04/23 07:53 Urine Methadone Screen Not Detected (NotDetected) 07/04/23 07:53 Ur Propoxyphene Screen Not Detected (NotDetected) 07/04/23 07:53 Acetaminophen <10.0 ug/mL 07/04/23 07:53 Ur Barbiturates Screen Not Detected (NotDetected) 07/04/23 07:53 U Tricyclic Antidepress Not Detected (NotDetected) 07/04/23 07:53 Ur Phencyclidine Scrn Not Detected (NotDetected) 07/04/23 07:53 Ur Amphetamines Screen Detected (NotDetected) H 07/04/23 07:53 U Methamphetamines Scrn Detected (NotDetected) H 07/04/23 07:53 U Benzodiazepines Scrn Detected (NotDetected) H 07/04/23 07:53 Urine Cocaine Screen Detected (NotDetected) H 07/04/23 07:53 U Marijuana (THC) Screen Detected (NotDetected) H 07/04/23 07:53 Serum Alcohol <10 mg/dL 07/04/23 07:53 Coronavirus (PCR) Not Detected (Not Detectd) 07/04/23 15:04 Allergies Allergy/AdvReac Type Severity Reaction Status Date / Time No Known Allergies Allergy Verified 07/04/23 19:27 Patient Condition at Discharge: Stable Plan - Discharge Summary Discharge Rx Participant: Yes New Discharge Prescriptions: New traZODone HCL [Desyrel] 200 mg PO HS 30 Days #120 tab Continue busPIRone HCL [Buspar] 30 mg PO BID 30 Days #60 tab Haloperidol Decanoate [Haldol D] 200 mg IM Q14D 1 Days #1 each Discontinued Venlafaxine HCl [Effexor XR] 150 mg PO DAILY Discharge Medication List Haloperidol Decanoate [Haldol D] 200 mg IM Q14D 1 Days #1 each 07/10/23 [Rx] busPIRone HCL [Buspar] 30 mg PO BID 30 Days #60 tab 07/10/23 [Rx] traZODone HCL [Desyrel] 200 mg PO HS 30 Days #120 tab 07/10/23 [Rx] Follow up Appointment(s)/Referral(s): [facility] [Outside] - 07/19/23 10:00 am (07/19/2023 10:00AM - 10:30AM [facility] ) None,Stated [Primary Care Provider] - 1-2 days Discharge Disposition: HOME SELF-CARE
[2023-07-13] MEDS ORDERED: HALOPERIDOL DECANOATE 100 MG/ML 1 ML VIAL IM SCH (09:00)
== END 2023-07-10 12:47 | disposition home or self-care (01) | DRG 750 ==
LOC: EC 07:14 → 3MHU 16:50
PROVIDERS: ADMIT Psychiatry & Neurology Psychiatry; ATTEND Psychiatry & Neurology Psychiatry
DX: F25.1 Schizoaffective disorder, depressive type (principal); F31.9 Bipolar disorder, unspecified; G47.00 Insomnia, unspecified; I10 Essential (primary) hypertension; F19.94 Other psychoactive substance use, unspecified with psychoactive substance-induced mood disorder; T50.902A Poisoning by unspecified drugs, medicaments and biological substances, intentional self-harm, initial encounter; F17.200 Nicotine dependence, unspecified, uncomplicated; F15.20 Other stimulant dependence, uncomplicated; F14.10 Cocaine abuse, uncomplicated; F12.20 Cannabis dependence, uncomplicated; F11.20 Opioid dependence, uncomplicated; Z20.822 Contact with and (suspected) exposure to COVID-19; F10.20 Alcohol dependence, uncomplicated; Z59.00 Homelessness unspecified; Z79.899 Other long term (current) drug therapy; Z82.49 Family history of ischemic heart disease and other diseases of the circulatory system; Z91.51 Personal history of suicidal behavior
CPT/HCPCS: 36415; 80053; 80061; 80143; 80179; 80306; 80320; 81003; 82075; 83036; 83605; 83735; 84443; 85025; 85610; 87635; 93005; 96360; 96372; 99285

== ENCOUNTER 2023-07-26 18:50 | Emergency (ER) | payer OTHER ==
--- NOTE | 2023-07-26 20:08 | ED ---
General Adult HPI - General Source: patient, RN notes reviewed <Rony Mohan - Last Filed: 07/26/23 21:22> - History of Present Illness -: days(s) Radiation: non-radiation Severity scale (1-10): 0 Consistency: constant Improves with: none Worsens with: none Associated Symptoms: denies other symptoms <Rony Moran - Last Filed: 07/26/23 22:39> - General Time Seen by Provider: 07/26/23 18:50 - History of Present Illness Initial comments: This is a 37-year-old male who presents emergency Department with EMS patient states he took 60 BuSpar however when I talked to him about that he stated he just said that she can get into the emergency department and be seen and get some food. Patient states he also does methamphetamine once in a while. Patient states he is having suicidal thoughts. Patient states he denies making any attempt today. Patient denies any physical complaints today. Patient denies headache patient with numbness weakness per patient chest pain difficult breathing shortness of breath. Patient denies any abdominal pain. Vomiting or diarrhea. (Rony Mohan) 37 male to the emergency department for evaluation, patient presents with p sychiatric and suicidal thoughts. Depression and anxiety. Patient feels anxious here in the emergency department for psychiatric evaluation (Rony Moran) - Related Data Previous Rx's Medication Instructions Recorded Haloperidol Decanoate [Haldol D] 200 mg IM Q14D 1 Days #1 each 07/10/23 busPIRone HCL [Buspar] 30 mg PO BID 30 Days #60 tab 07/10/23 traZODone HCL [Desyrel] 200 mg PO HS 30 Days #120 tab 07/10/23 Allergies Allergy/AdvReac Type Severity Reaction Status Date / Time No Known Allergies Allergy Verified 07/26/23 21:06 Review of Systems ROS Other: All systems not noted in ROS Statement are negative. <Rony Mohan - Last Filed: 07/26/23 21:22> ROS Other: All systems not noted in ROS Statement are negative. <Rony Moran - Last Filed: 07/26/23 22:39> ROS Statement: Those systems with pertinent positive or pertinent negative responses have been documented in the HPI. Past Medical History Past Medical History: No Reported History, Unable to Obtain, GERD/Reflux, Hypertension, Liver Disease Additional Past Medical History / Comment(s): Hepatitis C, DDD, back pain, bilateral carpel tunnel syndrome. He reports that he has heart disease that was found when he had kidney problems but he denies having a stress test or cardiac catheterization. History of Any Multi-Drug Resistant Organisms: None Reported MDRO Source:: unknown Past Surgical History: No Surgical Hx Reported, Unable to Obtain Additional Past Surgical History / Comment(s): Pt states he has had numerous "cysts" removed from where he injected IV drugs. Past Anesthesia/Blood Transfusion Reactions: No Reported Reaction, Unable to Obtain Additional Past Anesthesia/Blood Transfusion Reaction / Comment(s): Pt states he has never had surgery. Past Psychological History: Anxiety, Bipolar, Depression, Schizophrenia Smoking Status: Current every day smoker - Past Family History Mother Family Medical History: Unable to Obtain, Rheumatoid Arthritis (RA) Additional Family Medical History / Comment(s): Mother is . Father Family Medical History: Coronary Artery Disease (CAD) <Rony Mohan - Last Filed: 07/26/23 21:22> General Exam <Rony Mohan - Last Filed: 07/26/23 21:22> General appearance: alert, in no apparent distress, anxious Head exam: Present: atraumatic, normocephalic, normal inspection Eye exam: Present: normal appearance, PERRL, EOMI. Absent: scleral icterus, conjunctival injection, periorbital swelling ENT exam: Present: normal exam, mucous membranes moist Neck exam: Present: normal inspection. Absent: tenderness, meningismus, lymphadenopathy Respiratory exam: Present: normal lung sounds bilaterally. Absent: respiratory distress, wheezes, rales, rhonchi, stridor Cardiovascular Exam: Present: regular rate, normal rhythm, normal heart sounds. Absent: systolic murmur, diastolic murmur, rubs, gallop, clicks GI/Abdominal exam: Present: soft, normal bowel sounds. Absent: distended, tenderness, guarding, rebound, rigid Extremities exam: Present: normal inspection, full ROM, normal capillary refill. Absent: tenderness, pedal edema, joint swelling, calf tenderness Back exam: Present: normal inspection Neurological exam: Present: alert, oriented X3, CN II-XII intact Psychiatric exam: Present: normal affect, normal mood Skin exam: Present: warm, dry, intact, normal color. Absent: rash <Rony Moran - Last Filed: 07/26/23 22:39> - General Exam Comments Initial Comments: GENERAL: Patient is well-developed and well-nourished. Patient is nontoxic and well- hydrated and is in no acute distress. ENT: Neck is soft and supple. No significant lymphadenopathy is noted. Oropharynx is clear. Moist mucous membranes. Neck has full range of motion without eliciting any pain. EYES: The sclera were anicteric and conjunctiva were pink and moist. Extraocular movements were intact and pupils were equal round and reactive to light. Eyelids were unremarkable. PULMONARY: Unlabored respirations. Good breath sounds bilaterally. No audible rales rhonchi or wheezing was noted. CARDIOVASCULAR: There is a regular rate and rhythm without any murmurs gallops or rubs. ABDOMEN: Soft and nontender with normal bowel sounds. SKIN: Skin is clear with no lesions or rashes and otherwise unremarkable. NEUROLOGIC: Patient is alert and oriented x3. Cranial nerves II through XII are grossly intact. Motor and sensory are also intact. Normal speech, volume and content. Symmetrical smile. MUSCULOSKELETAL: Normal extremities with adequate strength and full range of motion. LYMPHATICS: No significant lymphadenopathy is noted PSYCHIATRIC: Patient states he suicidal but denies taking anything stating he just said that sorry to coming to the emergency department (Rony Mohan) Course <Rony Moran - Last Filed: 07/26/23 22:39> Vital Signs 07/26/23 07/26/23 18:50 21:13 Temperature 97.6 F Pulse Rate 76 70 Respiratory 18 16 Rate Blood Pressure 120/75 110/65 O2 Sat by Pulse 100 96 Oximetry - Reevaluation(s) Reevaluation #1: 07/26/23 22:37 Medical records reviewed (Rony Morna) Reevaluation #2: 07/26/23 22:38 Medical clear for psychiatric evaluation (Rony Moran) Medical Decision Making <Rony Mohan - Last Filed: 07/26/23 21:22> <Rony Moran - Last Filed: 07/26/23 22:39> - Medical Decision Making Was pt. sent in by a medical professional or institution ([facility], FOILING MACHINE OPERATOR, urgent care, hospital, or care home...) When possible be specific @ -[No] Did you speak to anyone other than the patient for history (EMS, parent, family, police, friend...)? What history was obtained from this source @ -EMS gave part of the history Did you review nursing and triage notes (agree or disagree)? Why? @ -[I reviewed and agree with nursing and triage notes] Were old charts reviewed (outside hosp., previous admission, EMS record, old EKG, old radiological studies, urgent care reports/EKG's, care home records)? Report findings @ -[No old charts were reviewed] Differential Diagnosis (chest pain, altered mental status, abdominal pain women, abdominal pain men, vaginal bleeding, weakness, fever, dyspnea, syncope, headache, dizziness, GI bleed, back pain, seizure, CVA, palpatations, mental health, musculoskeletal)? @ -Differential Mental Health Depression, anxiety, bipolar, psychosis, schizophrenia, borderline personality, situational depression, adjustment disorder, behavioral disorder, brain tumor, malingering, substance abuse, encephalopathy, medication reaction, dementia, hypothyroidism, degenerative neurologic disorder, lupus.... This is not meant to be all-inclusive list EKG interpreted by me (3pts min.). @ -[As above] X-rays interpreted by me (1pt min.). @ -[None done] CT interpreted by me (1pt min.). @ -[None done] U/S interpreted by me (1pt. min.). @ -[None done] What testing was considered but not performed or refused? (CT, X-rays, U/S, labs)? Why? @ -[None] What meds were considered but not given or refused? Why? @ -[None] Did you discuss the management of the patient with other professionals (professionals i.e. [facility], FOILING MACHINE OPERATOR, lab, RT, psych nurse, social services counselor, therapeutic radiologist, teacher, anti air warfare operations officer, case worker)? Give summary @ -[No] Was smoking cessation discussed for >3mins.? @ -[No] Was critical care preformed (if so, how long)? @ -[No] Were there social determinants of health that impacted care today? How? (Homelessness, low income, unemployed, alcoholism, drug addiction, transportation, low edu. Level, literacy, decrease access to med. care, care home, rehab)? @ -[No] Was there de-escalation of care discussed even if they declined (Discuss DNR or withdrawal of care, Hospice)? DNR status @ -[No] What co-morbidities impacted this encounter? (DM, HTN, Smoking, COPD, CAD, Cancer, CVA, ARF, Chemo, Hep., AIDS, mental health diagnosis, sleep apnea, morbid obesity)? @ -[None] Was patient admitted / discharged? Hospital course, mention meds given and route, prescriptions, significant lab abnormalities, going to OR and other pertinent info. @ -Patient admitted she did not take any pills suggested that so he could be admitted to [address]. I'm awaiting EPS evaluation Dr. Argueta couple take over the care of this patient at 9 PM (Rony Mohan) 37 male was seen evaluation psychiatry. Patient does admit to anxiety, remains homeless, asking for anxiolysis seen eval by psychiatry here in the ER can be discharged home (Rony Moran) - Lab Data Lab Results 07/26/23 Range/Units 20:08 Urine Opiates Screen Not Detected (NotDetected) Ur Oxycodone Screen Not Detected (NotDetected) Urine Methadone Screen Not Detected (NotDetected) Ur Propoxyphene Screen Not Detected (NotDetected) Ur Barbiturates Screen Not Detected (NotDetected) U Tricyclic Antidepress Not Detected (NotDetected) Ur Phencyclidine Scrn Not Detected (NotDetected) Ur Amphetamines Screen Detected H (NotDetected) U Methamphetamines Scrn Detected H (NotDetected) U Benzodiazepines Scrn Not Detected (NotDetected) Urine Cocaine Screen Detected H (NotDetected) U Marijuana (THC) Screen Detected H (NotDetected) Disposition <Rony Mohan - Last Filed: 07/26/23 21:22> Is patient prescribed a controlled substance at d/c from ED?: No <Rony Moran - Last Filed: 07/26/23 22:39> Clinical Impression: Adjustment reaction of adult life, Major depressive disorder, recurrent severe without psychotic features, Acute anxiety, Homelessness Disposition: HOME SELF-CARE Condition: Fair Instructions (If sedation given, give patient instructions): Anxiety (ED) Referrals: None,Stated [Primary Care Provider] - 1-2 days
[2023-07-26 20:44] LABS: Amphetamine Screen,Urine Detected (NotDetected); Barbiturate Screen,Urine Not Detected (NotDetected); Benzodiazepines Screen,Urine Not Detected (NotDetected); Cocaine Screen,Urine Detected (NotDetected); Methadone Screen, Urine Not Detected (NotDetected); Opiate Screen,Urine Not Detected (NotDetected); Oxycodone Screen, Urine Not Detected (NotDetected); Phencyclidine Screen,Urine Not Detected (NotDetected); Tricyclic Antidepressant,Urine Not Detected (NotDetected); Urn Cannabinoid Scrn Detected (NotDetected)
[2023-07-26 21:04] VITALS: TEMP 97.6
[2023-07-26] MEDS ORDERED: LORazepam 1 MG TAB PO STA (22:36)
[2023-07-26 23:15] VITALS: BP 123/83; PULSE 84; RESP 20
== END 2023-07-26 23:16 | disposition home or self-care (01) ==
LOC: EC 18:50
DX: F33.2 Major depressive disorder, recurrent severe without psychotic features (principal); F43.22 Adjustment disorder with anxiety; I10 Essential (primary) hypertension; F17.200 Nicotine dependence, unspecified, uncomplicated; Z59.00 Homelessness unspecified
CPT/HCPCS: 80306; 82075; 99285

== ENCOUNTER 2023-08-28 15:30 | Inpatient (IN) | payer OTHER ==
[2023-08-28] MEDS ORDERED: NALOXONE 0.4 MG/ML 1 ML VIAL IVP STA (15:44)
[2023-08-28] MEDS ORDERED: NALOXONE 0.4 MG/ML 1 ML VIAL IVP PRN (15:48)
[2023-08-28] MEDS ORDERED: MIDAZOLAM 1 MG/ML 5 ML VIAL IV STA (15:56)
[2023-08-28] MEDS ORDERED: SUCCINYLCHOLINE CHLORIDE 200 MG/10 ML VIAL IV STA (15:57)
--- NOTE | 2023-08-28 16:30 | ED ---
General Adult HPI - General Chief complaint: Altered Mental Status Stated complaint: Altered mental status Time Seen by Provider: 08/28/23 15:30 Source: patient, EMS, RN notes reviewed Mode of arrival: EMS Limitations: altered mental status, physical limitation - History of Present Illness Initial comments: Patient is unresponsive 37-year-old male presenting to the emergency department by EMS. Patient reportedly was found on the side of a anabaptist. Patient is unresponsive and provides no history. There is question of overdose. Patient was given 2 of Narcan intranasal without much improvement. EMS was unable to obtain line. - Related Data Previous Rx's Medication Instructions Recorded Haloperidol Decanoate [Haldol D] 200 mg IM Q14D 1 Days #1 each 07/10/23 Allergies Allergy/AdvReac Type Severity Reaction Status Date / Time No Known Allergies Allergy Verified 08/28/23 16:33 Review of Systems ROS Statement: Those systems with pertinent positive or pertinent negative responses have been documented in the HPI. ROS Other: All systems not noted in ROS Statement are negative. Limitations: ROS unobtainable due to patients medical condition Past Medical History Past Medical History: GERD/Reflux, Hypertension, Liver Disease, No Reported History, Unable to Obtain Additional Past Medical History / Comment(s): Hepatitis C, DDD, back pain, bilateral carpel tunnel syndrome. He reports that he has heart disease that was found when he had kidney problems but he denies having a stress test or cardiac catheterization. History of Any Multi-Drug Resistant Organisms: None Reported MDRO Source:: unknown Past Surgical History: No Surgical Hx Reported, Unable to Obtain Additional Past Surgical History / Comment(s): Pt states he has had numerous "cysts" removed from where he injected IV drugs. Past Anesthesia/Blood Transfusion Reactions: No Reported Reaction, Unable to Obtain Additional Past Anesthesia/Blood Transfusion Reaction / Comment(s): Pt states he has never had surgery. Past Psychological History: Anxiety, Bipolar, Depression, Schizophrenia Additional Psychological History / Comment(s): He has had multiple [facility] mental health admissions. Smoking Status: Current every day smoker Past Alcohol Use History: Occasional Additional Past Alcohol Use History / Comment(s): Pt started smoking in 1994 and smokes 1ppd Past Drug Use History: Heroin, Marijuana, Methamphetamine Additional Drug Use History / Comment(s): Pt states he has used drugs in the past but none recently d/t no money. 1/26/22 UDS +marijuana. Denies using drugs this admission but has has meth, amph, and marajuana in his drug screen 03-09-23. - Past Family History Mother Family Medical History: Unable to Obtain, Rheumatoid Arthritis (RA) Additional Family Medical History / Comment(s): Mother is . Father Family Medical History: Coronary Artery Disease (CAD) General Exam Limitations: altered mental status, physical limitation General appearance: obtunded Head exam: Present: atraumatic Eye exam: Present: other (Pupils constricted and with decreased reactive ) ENT exam: Present: normal oropharynx Neck exam: Present: normal inspection Respiratory exam: Present: normal lung sounds bilaterally Cardiovascular Exam: Present: regular rate, normal rhythm GI/Abdominal exam: Present: soft. Absent: tenderness Extremities exam: Present: normal inspection Neurological exam: Present: altered Expanded Neurological exam: Absent: protecting the airway Eye Response: (1) no response Motor Response: (1) no motor response Verbal Response: (1) no verbal response Psychiatric exam: Present: other (Nonverbal) Skin exam: Present: other (History of previous track broussard. History of well- healed remote left arm lacerations) Course Vital Signs 08/28/23 08/28/23 08/28/23 15:35 15:45 15:51 Temperature Pulse Rate 98 Respiratory 16 L 16 24 Rate Blood Pressure 146/110 O2 Sat by Pulse 98 Oximetry Fraction of Inspired Oxygen (FIO2) 08/28/23 08/28/23 08/28/23 16:24 16:36 16:52 Temperature 96.5 F L Pulse Rate 84 Respiratory 16 Rate Blood Pressure 124/92 O2 Sat by Pulse 100 Oximetry Fraction of 100 100 Inspired Oxygen (FIO2) 08/28/23 08/28/23 08/28/23 17:00 18:00 18:52 Temperature Pulse Rate 85 60 83 Respiratory 16 16 16 Rate Blood Pressure 126/89 128/68 127/88 O2 Sat by Pulse 99 98 99 Oximetry Fraction of Inspired Oxygen (FIO2) EKG Findings - EKG Results: EKG: interpreted by KARYD (Nonspecific T waves.), sinus rhythm, normal axis, normal QRS Procedures - ABG Interpretation Ph: 7.41 PCO2: 36 PO2: 400 Bicarbonate: 23 - Central Line Placement Right SC Consent Obtained: emergent situation Patient Placed on Monitor/Pulse Ox: Yes MD Prep: mask, gown, gloves Central Line Prep: Chlorhexidine scrub Ultrasound Used for Placement: No Complications: other (Unable to obtain venous access and site was aborted) Right Femoral Consent Obtained: emergent situation Patient Placed on Monitor/Pulse Ox: Yes Prep: mask, gown, gloves Central Line Prep: Chlorhexidine scrub Central Line Lumen Inserted: triple Central Line Position: good blood return Patient Tolerated Procedure: well Complications: hematoma at puncture site (Pressure was held) - Intubation Sedative: Versed Mg Given: 3 Paralytic: Succinylcholine Mg Given: 120 Laryngoscope: López Size: 3 ET Tube Size: 8 Tube Placement Confirmation: visualized tube passing through cords, equal breath sounds bilaterally Patient Tolerated Procedure: well, no complications Intubation Complications: none - IO Left Consent Obtained: emergent situation IO Instrument Used to Penetrate the Cortex: battery powered IO drill Patient Tolerated Procedure: well, no complications Complications: none Medical Decision Making - Medical Decision Making Patient arrives unresponsive. No response to sternal rub. Patient had IO placed. Narcan 0.4 followed by Narcan 2 mg followed by Narcan 2 mg without significant improvement. Patient was intubated. Central line placed. Was pt. sent in by a medical professional or institution (, PA, CLIMATOLOGY TEACHER, urgent care, hospital, or long term...) When possible be specific @ -No Did you speak to anyone other than the patient for history (EMS, parent, family, police, friend...)? What history was obtained from this source @ -EMS provides history as patient is unresponsive Did you review nursing and triage notes (agree or disagree)? Why? @ -I reviewed and agree with nursing and triage notes Were old charts reviewed (outside hosp., previous admission, EMS record, old EKG, old radiological studies, urgent care reports/EKG's, long term records)? Report findings @ -No old charts were reviewed Differential Diagnosis (chest pain, altered mental status, abdominal pain women, abdominal pain men, vaginal bleeding, weakness, fever, dyspnea, syncope, headache, dizziness, GI bleed, back pain, seizure, CVA, palpatations, mental health, musculoskeletal)? @ -Differential Altered Mental Status: Hypoglycemia, DKA, hypercapnia, ETOH, overdose, CO poisoning, trauma, myxedema coma, HTN encephalopathy, infection, encephalitis, psychosis, intercranial hemorrhage, hepatic encephalopathy, meningitis, CVA, this is not meant to be an all-inclusive list EKG interpreted by me (3pts min.). @ -As above X-rays interpreted by me (1pt min.). @ -Chest x-ray following attempted central line also shows no acute process. No pneumothorax. Endotracheal tube in appropriate position per CT interpreted by me (1pt min.). @ -CT brain without hemorrhage or large mass. CT cervical spine without obvious fracture U/S interpreted by me (1pt. min.). @ -None done What testing was considered but not performed or refused? (CT, X-rays, U/S, labs)? Why? @ -None What meds were considered but not given or refused? Why? @ -None Did you discuss the management of the patient with other professionals (professionals i.e. , PA, CLIMATOLOGY TEACHER, lab, RT, psych nurse, renal social worker, gamemaster, teacher, commissioned security officer, community case manager)? Give summary @ -Case was discussed with Dr. Potts, who will admit her to call. Case also discussed with Dr. Morin, who will admit for critical care and will consult. Was smoking cessation discussed for >3mins.? @ -No Was critical care preformed (if so, how long)? @ -44 minutes critical care time Were there social determinants of health that impacted care today? How? (Homelessness, low income, unemployed, alcoholism, drug addiction, transportation, low edu. Level, literacy, decrease access to med. care, prison, rehab)? @ -No Was there de-escalation of care discussed even if they declined (Discuss DNR or withdrawal of care, Hospice)? DNR status @ -No What co-morbidities impacted this encounter? (DM, HTN, Smoking, COPD, CAD, Cancer, CVA, ARF, Chemo, Hep., AIDS, mental health diagnosis, sleep apnea, morbid obesity)? @ -None Was patient admitted / discharged? Hospital course, mention meds given and route, prescriptions, significant lab abnormalities, going to OR and other pertinent info. @ -Patient reevaluated. Heart rate and blood pressure remains stable. Patient presented with altered mental status orget improvement with multiple doses of Narcan. Unable to protect airway. Patient was intubated. Patient has alcohol intoxication with a level of 427. Also polysubstance intoxication. Patient will be admitted to intensive care unit. Undiagnosed new problem with uncertain prognosis? @ -No Drug Therapy requiring intensive monitoring for toxicity (Heparin, Nitro, Insulin, Cardizem)? @ -No Were any procedures done? @ -See above Diagnosis/symptom? @ -Altered mental status, alcohol intoxication, polysubstance abuse Acute, or Chronic, or Acute on Chronic? @ -Acute, acute, acute on chronic Uncomplicated (without systemic symptoms) or Complicated (systemic symptoms)? @ -default Side effects of treatment? @ -No Exacerbation, Progression, or Severe Exacerbation? @ -No Poses a threat to life or bodily function? How? (Chest pain, USA, MA, pneumonia, PE, COPD, DKA, ARF, appy, cholecystitis, CVA, Diverticulitis, Homicidal, Suicidal, threat to staff... and all critical care pts) @ -No - Lab Data Result diagrams: 08/28/23 16:20 08/28/23 16:20 Lab Results 08/28/23 08/28/23 08/28/23 Range/Units 16:20 16:20 16:20 WBC 8.5 (3.8-10.6) k/uL RBC 5.45 (4.30-5.90) m/uL Hgb 15.3 (13.0-17.5) gm/dL Hct 45.4 (39.0-53.0) % MCV 83.3 (80.0-100.0) fL MCH 28.1 (25.0-35.0) pg MCHC 33.7 (31.0-37.0) g/dL RDW 13.1 (11.5-15.5) % Plt Count 247 (150-450) k/uL MPV 8.7 Neutrophils % 62 % Lymphocytes % 29 % Monocytes % 6 % Eosinophils % 1 % Basophils % 1 % Neutrophils # 5.2 (1.3-7.7) k/uL Lymphocytes # 2.4 (1.0-4.8) k/uL Monocytes # 0.5 (0-1.0) k/uL Eosinophils # 0.1 (0-0.7) k/uL Basophils # 0.0 (0-0.2) k/uL PT 10.8 (9.0-12.0) sec INR 1.0 (<1.2) APTT 23.1 (22.0-30.0) sec Sample Site ABG pH (7.35-7.45) ABG pCO2 (35-45) mmHg ABG pO2 (83-108) mmHg ABG HCO3 (21-25) mmol/L ABG Total CO2 (19-24) mmol/L ABG O2 Saturation (94-97) % ABG Base Excess mmol/L [place] Test FiO2 % Sodium 136 L (137-145) mmol/L Potassium 3.8 (3.5-5.1) mmol/L Chloride 97 L (98-107) mmol/L Carbon Dioxide 22 (22-30) mmol/L Anion Gap 17 mmol/L BUN 13 (9-20) mg/dL Creatinine 0.94 (0.66-1.25) mg/dL Est GFR (CKD-EPI)AfAm >90 (>60 ml/min/1.73 sqM) Est GFR (CKD-EPI)NonAf >90 (>60 ml/min/1.73 sqM) Glucose 107 H (74-99) mg/dL Lactic Ac Sepsis Rflx Plasma Lactic Acid Sohail (0.7-2.0) mmol/L Calcium 9.5 (8.4-10.2) mg/dL Total Bilirubin 0.3 (0.2-1.3) mg/dL AST 60 H (17-59) U/L ALT 28 (4-49) U/L Alkaline Phosphatase 52 (38-126) U/L Troponin I (0.000-0.034) ng/mL Total Protein 7.8 (6.3-8.2) g/dL Albumin 4.5 (3.5-5.0) g/dL Urine Color Urine Appearance (Clear) Urine pH (5.0-8.0) Ur Specific Gilbert (1.001-1.035) Urine Protein (Negative) Urine Glucose (UA) (Negative) Urine Ketones (Negative) Urine Blood (Negative) Urine Nitrite (Negative) Urine Bilirubin (Negative) Urine Urobilinogen (<2.0) mg/dL Ur Leukocyte Esterase (Negative) Salicylates <1.0 mg/dL Urine Opiates Screen (NotDetected) Ur Oxycodone Screen (NotDetected) Urine Methadone Screen (NotDetected) Ur Propoxyphene Screen (NotDetected) Acetaminophen <10.0 ug/mL Ur Barbiturates Screen (NotDetected) U Tricyclic Antidepress (NotDetected) Ur Phencyclidine Scrn (NotDetected) Ur Amphetamines Screen (NotDetected) U Methamphetamines Scrn (NotDetected) U Benzodiazepines Scrn (NotDetected) Urine Cocaine Screen (NotDetected) U Marijuana (THC) Screen (NotDetected) Serum Alcohol 472 H* mg/dL 08/28/23 08/28/23 08/28/23 Range/Units 16:20 16:20 17:10 WBC (3.8-10.6) k/uL RBC (4.30-5.90) m/uL Hgb (13.0-17.5) gm/dL Hct (39.0-53.0) % MCV (80.0-100.0) fL MCH (25.0-35.0) pg MCHC (31.0-37.0) g/dL RDW (11.5-15.5) % Plt Count (150-450) k/uL MPV Neutrophils % % Lymphocytes % % Monocytes % % Eosinophils % % Basophils % % Neutrophils # (1.3-7.7) k/uL Lymphocytes # (1.0-4.8) k/uL Monocytes # (0-1.0) k/uL Eosinophils # (0-0.7) k/uL Basophils # (0-0.2) k/uL PT (9.0-12.0) sec INR (<1.2) APTT (22.0-30.0) sec Sample Site ABG pH (7.35-7.45) ABG pCO2 (35-45) mmHg ABG pO2 (83-108) mmHg ABG HCO3 (21-25) mmol/L ABG Total CO2 (19-24) mmol/L ABG O2 Saturation (94-97) % ABG Base Excess mmol/L [place] Test FiO2 % Sodium (137-145) mmol/L Potassium (3.5-5.1) mmol/L Chloride (98-107) mmol/L Carbon Dioxide (22-30) mmol/L Anion Gap mmol/L BUN (9-20) mg/dL Creatinine (0.66-1.25) mg/dL Est GFR (CKD-EPI)AfAm (>60 ml/min/1.73 sqM) Est GFR (CKD-EPI)NonAf (>60 ml/min/1.73 sqM) Glucose (74-99) mg/dL Lactic Ac Sepsis Rflx Plasma Lactic Acid Sohail 2.8 H* (0.7-2.0) mmol/L Calcium (8.4-10.2) mg/dL Total Bilirubin (0.2-1.3) mg/dL AST (17-59) U/L ALT (4-49) U/L Alkaline Phosphatase (38-126) U/L Troponin I <0.012 (0.000-0.034) ng/mL Total Protein (6.3-8.2) g/dL Albumin (3.5-5.0) g/dL Urine Color Urine Appearance (Clear) Urine pH (5.0-8.0) Ur Specific Gilbert (1.001-1.035) Urine Protein (Negative) Urine Glucose (UA) (Negative) Urine Ketones (Negative) Urine Blood (Negative) Urine Nitrite (Negative) Urine Bilirubin (Negative) Urine Urobilinogen (<2.0) mg/dL Ur Leukocyte Esterase (Negative) Salicylates mg/dL Urine Opiates Screen Not Detected (NotDetected) Ur Oxycodone Screen Not Detected (NotDetected) Urine Methadone Screen Not Detected (NotDetected) Ur Propoxyphene Screen Not Detected (NotDetected) Acetaminophen ug/mL Ur Barbiturates Screen Not Detected (NotDetected) U Tricyclic Antidepress Not Detected (NotDetected) Ur Phencyclidine Scrn Not Detected (NotDetected) Ur Amphetamines Screen Detected H (NotDetected) U Methamphetamines Scrn Detected H (NotDetected) U Benzodiazepines Scrn Not Detected (NotDetected) Urine Cocaine Screen Detected H (NotDetected) U Marijuana (THC) Screen Detected H (NotDetected) Serum Alcohol mg/dL 08/28/23 08/28/23 08/28/23 Range/Units 17:10 17:17 17:32 WBC (3.8-10.6) k/uL RBC (4.30-5.90) m/uL Hgb (13.0-17.5) gm/dL Hct (39.0-53.0) % MCV (80.0-100.0) fL MCH (25.0-35.0) pg MCHC (31.0-37.0) g/dL RDW (11.5-15.5) % Plt Count (150-450) k/uL MPV Neutrophils % % Lymphocytes % % Monocytes % % Eosinophils % % Basophils % % Neutrophils # (1.3-7.7) k/uL Lymphocytes # (1.0-4.8) k/uL Monocytes # (0-1.0) k/uL Eosinophils # (0-0.7) k/uL Basophils # (0-0.2) k/uL PT (9.0-12.0) sec INR (<1.2) APTT (22.0-30.0) sec Sample Site rbrac ABG pH 7.41 (7.35-7.45) ABG pCO2 36 (35-45) mmHg ABG pO2 >400 H (83-108) mmHg ABG HCO3 23 (21-25) mmol/L ABG Total CO2 24 (19-24) mmol/L ABG O2 Saturation 100.0 H (94-97) % ABG Base Excess -1.7 mmol/L [place] Test Yes FiO2 100 % Sodium (137-145) mmol/L Potassium (3.5-5.1) mmol/L Chloride (98-107) mmol/L Carbon Dioxide (22-30) mmol/L Anion Gap mmol/L BUN (9-20) mg/dL Creatinine (0.66-1.25) mg/dL Est GFR (CKD-EPI)AfAm (>60 ml/min/1.73 sqM) Est GFR (CKD-EPI)NonAf (>60 ml/min/1.73 sqM) Glucose (74-99) mg/dL Lactic Ac Sepsis Rflx Y Plasma Lactic Acid Sohail (0.7-2.0) mmol/L Calcium (8.4-10.2) mg/dL Total Bilirubin (0.2-1.3) mg/dL AST (17-59) U/L ALT (4-49) U/L Alkaline Phosphatase (38-126) U/L Troponin I (0.000-0.034) ng/mL Total Protein (6.3-8.2) g/dL Albumin (3.5-5.0) g/dL Urine Color Colorless Urine Appearance Clear (Clear) Urine pH 6.0 (5.0-8.0) Ur Specific Gilbert 1.003 (1.001-1.035) Urine Protein Negative (Negative) Urine Glucose (UA) Negative (Negative) Urine Ketones Negative (Negative) Urine Blood Negative (Negative) Urine Nitrite Negative (Negative) Urine Bilirubin Negative (Negative) Urine Urobilinogen <2.0 (<2.0) mg/dL Ur Leukocyte Esterase Negative (Negative) Salicylates mg/dL Urine Opiates Screen (NotDetected) Ur Oxycodone Screen (NotDetected) Urine Methadone Screen (NotDetected) Ur Propoxyphene Screen (NotDetected) Acetaminophen ug/mL Ur Barbiturates Screen (NotDetected) U Tricyclic Antidepress (NotDetected) Ur Phencyclidine Scrn (NotDetected) Ur Amphetamines Screen (NotDetected) U Methamphetamines Scrn (NotDetected) U Benzodiazepines Scrn (NotDetected) Urine Cocaine Screen (NotDetected) U Marijuana (THC) Screen (NotDetected) Serum Alcohol mg/dL Critical Care Time Critical Care Time: Yes Total Critical Care Time: 44 Disposition Clinical Impression: Altered mental status Disposition: ADMITTED IP TO THIS [facility] Condition: Critical Is patient prescribed a controlled substance at d/c from ED?: No Referrals: None,Stated [Primary Care Provider] - 1-2 days Time of Disposition: 19:49
[2023-08-28 16:41] LABS: Basophils % (A) 1 %; Eosinophils # (A) 0.1 k/uL (0-0.7); Eosinophils % (A) 1 %; HCT 45.4 % (39.0-53.0); HGB 15.3 gm/dL (13.0-17.5); Lymphocytes # (A) 2.4 k/uL (1.0-4.8); Lymphocytes % (A) 29 %; MCH 28.1 pg (25.0-35.0); MCHC 33.7 g/dL (31.0-37.0); MCV 83.3 fL (80.0-100.0); Mean Platelet Volume 8.7; Monocytes # (A) 0.5 k/uL (0-1.0); Monocytes % (A) 6 %; Neutrophils # (A) 5.2 k/uL (1.3-7.7); Neutrophils % (A) 62 %; Platelet Count 247 k/uL (150-450); RBC 5.45 m/uL (4.30-5.90); RDW 13.1 % (11.5-15.5); WBC 8.5 k/uL (3.8-10.6)
--- NOTE | 2023-08-28 16:48 | XR ---
EXAMINATION TYPE: XR chest 1V portable DATE OF EXAM: 08/28/2023 4:42 PM CLINICAL INDICATION:Male, 37 years old with history of ams; COMPARISON: Chest radiographs from 05/09/2023 TECHNIQUE: XR chest 1V portable Frontal view of the chest. FINDINGS: Lungs/Pleura: There is no evidence of pleural effusion, focal consolidation, or pneumothorax. Pulmonary vascularity: Unremarkable. Heart/mediastinum: Cardiomediastinal silhouette is unremarkable. Musculoskeletal: No acute osseous pathology. Other findings: None Lines/Tubes: Endotracheal tube with distal tip 5.4 cm above the catherine. IMPRESSION: 1. No acute cardiopulmonary disease/process. 2. Support tubes in appropriate position.
[2023-08-28 16:57] LABS: ALT 28 U/L (4-49); AST 60 U/L (17-59); Acetaminophen <10.0 ug/mL; African American GFR (CKD) >90 (>60 ml/min/1.73 sqM); Albumin 4.5 g/dL (3.5-5.0); Alkaline Phosphatase 52 U/L (38-126); Anion Gap 17 mmol/L; Blood Urea Nitrogen 13 mg/dL (9-20); Calcium 9.5 mg/dL (8.4-10.2); Carbon Dioxide 22 mmol/L (22-30); Chloride 97 mmol/L (98-107); Glucose 107 mg/dL (74-99); Non-African American GFR(CKD) >90 (>60 ml/min/1.73 sqM); Potassium 3.8 mmol/L (3.5-5.1); Salicylate <1.0 mg/dL; Sodium 136 mmol/L (137-145); Total Bilirubin 0.3 mg/dL (0.2-1.3); Total Protein 7.8 g/dL (6.3-8.2)
[2023-08-28 17:04] LABS: Partial Thromboplastin Time 23.1 sec (22.0-30.0); Prothrombin Time 10.8 sec (9.0-12.0)
[2023-08-28 17:12] LABS: Alcohol 472 mg/dL
[2023-08-28 17:35] LABS: ABG Base Excess -1.7 mmol/L; ABG HCO3 23 mmol/L (21-25); ABG PCO2 36 mmHg (35-45); ABG PH 7.41 (7.35-7.45); ABG PO2 >400 mmHg (83-108); ABG TCO2 24 mmol/L (19-24); Allen Test Performed? Yes
[2023-08-28 17:43] LABS: Appearance,Urine Clear (Clear); Bilirubin,Urine Negative (Negative); Blood,Urine Negative (Negative); Color,Urine Colorless; Glucose,Urine (UA) Negative (Negative); Ketones,Urine Negative (Negative); Leukocyte Esterase,Urine Negative (Negative); Nitrite,Urine Negative (Negative); Protein,Urine Negative (Negative); Specific Gravity,Urine 1.003 (1.001-1.035); Urobilinogen,Urine <2.0 mg/dL (<2.0)
[2023-08-28 17:53] LABS: Amphetamine Screen,Urine Detected (NotDetected); Barbiturate Screen,Urine Not Detected (NotDetected); Benzodiazepines Screen,Urine Not Detected (NotDetected); Cocaine Screen,Urine Detected (NotDetected); Methadone Screen, Urine Not Detected (NotDetected); Opiate Screen,Urine Not Detected (NotDetected); Oxycodone Screen, Urine Not Detected (NotDetected); Phencyclidine Screen,Urine Not Detected (NotDetected); Tricyclic Antidepressant,Urine Not Detected (NotDetected); Urn Cannabinoid Scrn Detected (NotDetected)
--- NOTE | 2023-08-28 18:29 | CT ---
EXAMINATION TYPE: CT brain cspine wo con CT DLP: 1449 mGycm, Automated exposure control for dose reduction was used. DATE OF EXAM: 08/28/2023 6:17 PM COMPARISON: 05/09/2023 CLINICAL INDICATION:Male, 37 years old with history of ams; AMS, overdose, found unresponsive TECHNIQUE: Brain: Multiple axial CT images of the brain were obtained without IV contrast. Cspine: Axial CT images from the skull base to the inferior aspect of T2 we obtained without intraven ous contrast. Coronal and sagittal reformatted images were also reviewed. FINDINGS: Brain: Extra-axial spaces: No abnormal extra-axial fluid collections. Ventricular system: Within normal limits Cerebral parenchyma: No acute intraparenchymal hemorrhage or mass effect. The chou-white junction is well differentiated. Cerebellum: Unremarkable. Mass effect: No evidence of midline shift. Intracranial vasculature: unremarkable Soft tissues: Normal. Calvarium/osseous structures: No depressed skull fracture. Paranasal sinuses and mastoid air cells: Clear. Visualized orbits: Orbital contents are intact. Cervical spine: Fracture: None. Osseous structures: Unremarkable Vertebral alignment: Within normal limits. Spinal canal/Neural Foramina: No evidence of significant spinal canal narrowing. No evidence for sign ificant neural foraminal stenosis. Neck soft tissues: Prevertebral soft tissues are within normal limits. Other: The airway is patent. The lung apices are clear. Nasogastric and endotracheal tubes visualized endotracheal tubes in appropriate position. Mild paranasal sinus disease. IMPRESSION: 1. No acute intracranial process. 2. No evidence of cervical spine fracture. 3. Support endotracheal tube in appropriate position.
[2023-08-28] MEDS ORDERED: NALOXONE 0.4 MG/ML 1 ML VIAL IV PRN (19:50)
[2023-08-28] MEDS ORDERED: ACETAMINOPHEN SUPPOSITORY 650 MG SUPP RECTAL PRN (19:50)
[2023-08-28] MEDS ORDERED: DEXTROSE 5%-0.9% NACL 1,000 ML IV SCH (20:00)
[2023-08-28 21:24] LABS: Glucose,Whole Blood 124 mg/dL (70-110)
[2023-08-28] MEDS ORDERED: SODIUM CHLORIDE 0.9% 1,000 ML IV ONE (23:21)
[2023-08-28] MEDS: CHLORHEXIDINE GLUCONATE 15 ML CUP MUCOUS MEM SCH (23:42)
[2023-08-29] MEDS: HEPARIN SODIUM,PORCINE 5,000 UNIT/ML 1 ML VIAL SQ SCH ×3 (00:59→16:49)
[2023-08-29] MEDS: SODIUM CHLORIDE 0.9% 1,000 ML IV SCH ×2 (00:59→07:37)
--- NOTE | 2023-08-29 03:41 | P.PCN ---
Date of Procedure: 08/29/23 Preoperative Diagnosis: Suspected overdose and ventilator dependent respiratory failure Postoperative Diagnosis: Suspected overdose and ventilator dependent respiratory failure Procedure(s) Performed: Insertion of a right wrist radial arterial line Indications for Procedure: Continuous blood pressure monitoring and frequent blood draws Description of Procedure: Informed consent was obtained, and a procedural timeout was performed . The patient was placed in supine position. The right radial region was prepared in a sterile fashion, and a sterile drape was applied. The right radial artery was palpated, easily cannulated, and a guidewire was placed. A Cook catheter was inserted over the guidewire, and the guidewire was removed. There was good arterial blood flow, good arterial waveform, and no complications. The line was secured with using a 3-0 silk suture.
[2023-08-29 03:46] LABS: ALT 26 U/L (4-49); AST 45 U/L (17-59); African American GFR (CKD) >90 (>60 ml/min/1.73 sqM); Albumin 3.6 g/dL (3.5-5.0); Alkaline Phosphatase 43 U/L (38-126); Anion Gap 12 mmol/L; Blood Urea Nitrogen 8 mg/dL (9-20); Calcium 8.3 mg/dL (8.4-10.2); Carbon Dioxide 22 mmol/L (22-30); Chloride 111 mmol/L (98-107); Glucose 101 mg/dL (74-99); Non-African American GFR(CKD) >90 (>60 ml/min/1.73 sqM); Potassium 3.8 mmol/L (3.5-5.1); Sodium 145 mmol/L (137-145); Total Bilirubin 0.2 mg/dL (0.2-1.3); Total Protein 6.5 g/dL (6.3-8.2)
[2023-08-29 04:07] LABS: Basophils % (A) 0 %; Eosinophils # (A) 0.1 k/uL (0-0.7); Eosinophils % (A) 1 %; HCT 40.4 % (39.0-53.0); HGB 13.4 gm/dL (13.0-17.5); Lymphocytes # (A) 2.4 k/uL (1.0-4.8); Lymphocytes % (A) 29 %; MCH 28.1 pg (25.0-35.0); MCHC 33.2 g/dL (31.0-37.0); MCV 84.5 fL (80.0-100.0); Mean Platelet Volume 8.7; Monocytes # (A) 0.5 k/uL (0-1.0); Monocytes % (A) 6 %; Neutrophils # (A) 5.1 k/uL (1.3-7.7); Neutrophils % (A) 61 %; Platelet Count 202 k/uL (150-450); RBC 4.78 m/uL (4.30-5.90); RDW 13.4 % (11.5-15.5); WBC 8.3 k/uL (3.8-10.6)
[2023-08-29] MEDS: LORazepam 2 MG/ML INJ IV PRN ×4 (04:10→15:27)
--- NOTE | 2023-08-29 05:07 | P.CNPUL ---
History of Present Illness Consult date: 08/29/23 Requesting physician: Inder Camara Reason for consult: other (ICU management) Chief complaint: Altered mental status History of present illness: I am seeing this patient in new consultation today 08/29/2023 in the intensive care unit after the patient was found unresponsive outside of the hospital, and intubated for airway protection in the emergency room. Patient is a 37-year-old white male with past medical history significant for polysubstance abuse and prior overdoses requiring intubation, history of depression and suicidal attempts, schizoaffective disorder, hepatitis C, and alcohol abuse. Patient is currently intubated mechanical ventilator and unable to provide any information. Patient had a recent ICU admission back in Mar, 2023 for lithium overdose. He has since been taken off lithium. Patient was brought to the emergency room by EMS yesterday afternoon. Apparently, he was found on the side of a mandaen. He was unresponsive. He was given multiple doses of Narcan without much improvement. When he arrived to the emergency room, he was intubated by the ER physician. Postintubation chest x-ray shows the endotracheal tube approximately 5.4 cm from the catherine. There was an orogastric tube coursing below the diaphragm. No focal infiltrates or evidence of pneumonia. CT of the brain and C-spine without contrast showed no acute intracranial process. No evidence of C-spine fracture. Patient was admitted to the intensive care unit. He is currently intubated to the mechanical ventilator and synchronous. He is sedated on propofol which is currently infusing at 50 mcg/kg/m. Current ventilator settings include assist control, respiratory 14, tidal volume 500, FiO2 40%, and PEEP of 5. Postintubation ABG shows a pO2 greater than 400, pCO2 36, pH of 7.41. CBC on admission was unremarkable. Most recent CMP shows a sodium 145, potassium 3.8, chloride 111, serum bicarb 22, BUN 8, creatinine 0.72, glucose 101. Lactic acid level was elevated, and is down to 2.3. LFTs nonelevated. Troponin less than 0.012. Urine tox screen was positive for amphetamines, methamphetamines, cocaine, and marijuana. Patient was also intoxicated on arrival with a serum alcohol level 472. Patient has been started on the CIWA protocol. Blood pressure is normotensive. Not requiring any vasopressors. There is an indwelling urinary catheter, urine output is adequate. He will be monitored in the intensive care unit. Review of Systems ROS unobtainable: due to endotracheal tube Past Medical History Past Medical History: GERD/Reflux, Hypertension, Liver Disease, Skin Disorder Additional Past Medical History / Comment(s): Hepatitis C, Pancreatitis, DDD, back pain, bilateral carpel tunnel syndrome. In the past has reported that he has heart disease that was found when he had kidney problems but he denies having a stress test or cardiac catheterization. History of Any Multi-Drug Resistant Organisms: None Reported MDRO Source:: unknown Past Surgical History: No Surgical Hx Reported, Unable to Obtain Additional Past Surgical History / Comment(s): Pt states he has had numerous "cysts" removed from where he injected IV drugs. Past Anesthesia/Blood Transfusion Reactions: No Reported Reaction, Unable to Obtain Additional Past Anesthesia/Blood Transfusion Reaction / Comment(s): In the past pt reported that he has never had surgery Smoking Status: Current every day smoker - Past Family History Mother Family Medical History: Unable to Obtain, Rheumatoid Arthritis (RA) Additional Family Medical History / Comment(s): Mother is . Father Family Medical History: Coronary Artery Disease (CAD) Medications and Allergies Home Medications Medication Instructions Recorded Confirmed Type Haloperidol Decanoate [Haldol D] 200 mg IM Q14D 1 Days #1 each 07/10/23 08/28/23 Rx Allergies Allergy/AdvReac Type Severity Reaction Status Date / Time No Known Allergies Allergy Verified 08/28/23 16:33 Physical Exam Vitals: Vital Signs Temp Pulse Pulse Resp BP BP Pulse Ox 08/29/23 02:00 92 18 111/80 97 08/29/23 01:00 85 19 109/79 97 08/29/23 00:30 08/29/23 00:00 96.9 F L 88 17 106/74 97 08/28/23 23:31 92 14 97 08/28/23 23:00 89 16 120/78 96 08/28/23 22:00 84 19 129/91 100 08/28/23 21:50 84 19 100 08/28/23 21:45 08/28/23 21:40 96.4 F L 84 18 128/89 99 08/28/23 21:30 92 22 100 08/28/23 21:26 91 20 100 08/28/23 21:15 96.4 F L 84 18 128/89 99 08/28/23 21:10 97 16 130/93 100 08/28/23 20:59 99 16 130/93 98 08/28/23 20:19 08/28/23 19:00 124/87 08/28/23 18:52 83 16 127/88 99 08/28/23 18:00 60 16 128/68 98 08/28/23 17:00 85 16 126/89 99 08/28/23 16:52 96.5 F L 84 16 124/92 100 08/28/23 16:36 08/28/23 16:24 08/28/23 15:51 24 08/28/23 15:45 16 08/28/23 15:35 98 16 L 146/110 98 FiO2 08/29/23 02:00 08/29/23 01:00 08/29/23 00:30 40 08/29/23 00:00 40 08/28/23 23:31 08/28/23 23:00 08/28/23 22:00 08/28/23 21:50 08/28/23 21:45 40 08/28/23 21:40 40 08/28/23 21:30 08/28/23 21:26 08/28/23 21:15 40 08/28/23 21:10 08/28/23 20:59 08/28/23 20:19 40 08/28/23 19:00 08/28/23 18:52 08/28/23 18:00 08/28/23 17:00 08/28/23 16:52 08/28/23 16:36 100 08/28/23 16:24 100 08/28/23 15:51 08/28/23 15:45 08/28/23 15:35 Intake and Output 08/28/23 08/28/23 08/29/23 14:59 22:59 06:59 Intake Total 664.913 9204.490 Output Total 4000 765 Balance -3557.358 723.490 Intake: IV 375 1389 Dextrose 5%-0.9% NaCl 1, 375 000 ml @ 125 mls/hr IV . Q8H [facility] Rx#:[id number] Sodium Chloride 0.9% 1, 390 000 ml @ 130 mls/hr IV . Q7H42M [facility] Rx#:[id number] Sodium Chloride 0.9% 1, 999 000 ml @ 999 mls/hr IV . Q1H1M [facility] Rx#:[id number] Intake, IV Titration 67.642 99.490 Amount propofoL 1,000 mg In 67.642 99.490 Empty Bag 1 bag @ 15 MCG/ KG/MIN 10.206 mls/hr IV . Q9H48M [facility] Rx#:[id number] Output: Urine 4000 765 Other: Voiding Method Indwelling Catheter Weight 91.6 kg GENERAL EXAM: 37-year-old white male, Sedated and synchronous on mechanical ventilator. HEAD: Normocephalic and atraumatic EYES: Normal reaction of pupils, equal size. NOSE: Clear with pink turbinates. THROAT: No erythema or exudates. NECK: No masses, no JVD. CHEST: No chest wall deformity. LUNGS: Equal air entry with no crackles, wheeze, rhonchi or dullness. Intubated on the mechanical ventilator. CVS: S1 and S2 normal with no audible murmur, regular rhythm. No extra heart sounds ABDOMEN: No hepatosplenomegaly, active bowel sounds, no guarding or rigidity. SPINE: No scoliosis or deformity SKIN: No rashes CENTRAL NERVOUS SYSTEM: Patient is sedated, and unable to follow commands. No focal deficits, tone is normal in all 4 extremities. EXTREMITIES: There is no peripheral edema, clubbing, or cyanosis. Peripheral pulses are intact. Results - Laboratory Findings CBC and BMP: 08/29/23 03:22 08/29/23 03:22 ABG ABG pH 7.41 (7.35-7.45) 08/28/23 17:32 ABG pCO2 36 mmHg (35-45) 08/28/23 17:32 ABG pO2 >400 mmHg (83-108) H 08/28/23 17:32 ABG O2 Saturation 100.0 % (94-97) H 08/28/23 17:32 PT/INR, D-dimer PT 10.8 sec (9.0-12.0) 08/28/23 16:20 INR 1.0 (<1.2) 08/28/23 16:20 Abnormal lab findings: Abnormal Labs 08/28/23 08/28/23 08/28/23 16:20 16:20 17:10 ABG pO2 ABG O2 Saturation Sodium 136 L Chloride 97 L Glucose 107 H POC Glucose (mg/dL) Plasma Lactic Acid Sohail 2.8 H* AST 60 H Ur Amphetamines Screen Detected H U Methamphetamines Scrn Detected H Urine Cocaine Screen Detected H U Marijuana (THC) Screen Detected H Serum Alcohol 472 H* 08/28/23 08/28/23 08/28/23 17:32 20:23 21:23 ABG pO2 >400 H ABG O2 Saturation 100.0 H Sodium Chloride Glucose POC Glucose (mg/dL) 124 H Plasma Lactic Acid Sohail 3.1 H* AST Ur Amphetamines Screen U Methamphetamines Scrn Urine Cocaine Screen U Marijuana (THC) Screen Serum Alcohol 08/29/23 00:32 ABG pO2 ABG O2 Saturation Sodium Chloride Glucose POC Glucose (mg/dL) Plasma Lactic Acid Sohail 2.3 H* AST Ur Amphetamines Screen U Methamphetamines Scrn Urine Cocaine Screen U Marijuana (THC) Screen Serum Alcohol - Diagnostic Findings Chest x-ray: image reviewed Assessment and Plan Assessment: Altered mental status, secondary to suspected drug overdose. Mechanical ventilator management, intubated for airway protection Acute alcohol intoxication, serum alcohol level on arrival was 472 Polysubstance abuse, urine toxicology screen positive for methamphetamines, amphetamines, cocaine, marijuana History of depression with previous suicidal attempts Schizoaffective disorder History of alcohol abuse History of hepatitis C Chronic and ongoing nicotine dependence Plan: Patient's medications, labs and chest x-ray reviewed Continue on the mechanical ventilator Continue propofol for sedation Add ventilator bundle CIWA protocol Heparin for DVT prophylaxis and Protonix for GI prophylaxis We will continue to follow the patient will in the intensive care unit I have personally seen and examined the patient, performed the documentation and the assessment and plan as written. Number of minutes spent on the visit:20 Time with Patient: Greater than 30
[2023-08-29 05:37] LABS: ABG Base Excess -2.3 mmol/L; ABG HCO3 23 mmol/L (21-25); ABG Oxygen Saturation 98.6 % (94-97); ABG PCO2 43 mmHg (35-45); ABG PH 7.35 (7.35-7.45); ABG PO2 145 mmHg (83-108); ABG TCO2 25 mmol/L (19-24); Allen Test Performed? Yes
--- NOTE | 2023-08-29 08:18 | XR ---
EXAMINATION TYPE: XR chest 1V portable DATE OF EXAM: 08/29/2023 COMPARISON: 1023 HISTORY: Shortness of breath TECHNIQUE: Single frontal view of the chest is obtained. FINDINGS: ET and NG tubes stable. There is a left lower lobe subsegmental consolidation with elevate d hemidiaphragm. Trace of pleural fluid. No overt failure. Heart size normal. Osseous structures stab le. IMPRESSION: Left basilar atelectasis and tiny effusion
[2023-08-29] MEDS: PANTOPRAZOLE 40 MG/10 ML VIAL IV SCH (08:50)
[2023-08-29] MEDS: CHLORHEXIDINE GLUCONATE 15 ML CUP MUCOUS MEM SCH ×2 (08:50→22:08)
[2023-08-29] MEDS: DEXTROSE 5%-0.45% NACL 1,000 ML IV SCH ×2 (09:29→16:52)
[2023-08-29] MEDS: DEXMEDETOMIDINE/0.9% NACL(PMX) 400 MCG in EMPTY BAG 1 BAG IV SCH (10:31)
[2023-08-29] MEDS: THIAMINE 100 MG/ML 2 ML VIAL IVP SCH (10:55)
[2023-08-29 12:05] LABS: Glucose,Whole Blood 105 mg/dL (70-110)
[2023-08-29] MEDS ORDERED: CISATRACURIUM 2 MG/ML 5 ML VIAL IV ONE ×2 (14:48→14:51)
[2023-08-29] MEDS ORDERED: CISATRACURIUM 200 MG in SODIUM CHLORIDE 0.9% 180 ML IV SCH (15:00)
[2023-08-29] MEDS: MIDAZOLAM HCL 50 MG in SODIUM CHLORIDE 0.9% 40 ML IV SCH ×3 (15:44→22:40)
[2023-08-29] MEDS ORDERED: HYDROmorphone 1 MG/ML 1 ML SYRINGE IVP STA (16:04)
[2023-08-29] MEDS: SODIUM CHLORIDE 0.9% 80 ML with fentaNYL (PF) 1,000 MCG IV SCH ×2 (16:30)
[2023-08-29] MEDS ORDERED: DEXTROSE 50% SYRINGE 50 ML IVP PRN ×2 (17:51)
[2023-08-29 17:53] LABS: Glucose,Whole Blood 129 mg/dL (70-110)
[2023-08-29] MEDS: INSULIN ASPART (NovoLOG) 100 UNIT/ML VIAL SQ SCH (17:57)
--- NOTE | 2023-08-29 20:35 | P.HPIM ---
History of Present Illness H&P Date: 08/29/23 Chief Complaint: Altered mental status Patient is a 37-year-old male with a past medical history of hypertension, GERD, polysubstance abuse, hepatitis C, chronic back pain, currently everyday smoker and alcohol abuse was brought to the hospital by EMS as he was found unconscious at the spirit[facility]. Patient was given Narcan intranasal x2 without much improvement. Patient was brought to the ER. Patient was intubated for airway protection. Currently sedated. Patient had previous admission to MICU due to drug overdose with lithium. Chest x-ray showed no acute cardiopulmonary process. Support tubes in appropriate position. EKG showed sinus rhythm. CT of the head and cervical spine showed no acute intracranial process. No evidence of cervical spine fracture. Support Endo tracheal tube in appropriate position. Laboratory data showed WBC 8.4 hemoglobin 15.3 and platelets 247 Sodium 136 potassium 3.8 chloride 97 bicarb is 22 BUN 13 and creatinine 0.94 and lactic acid 2.8 AST 60 ALT 28 and alk phos 52 troponin x1 negative. Urinalysis is UDS is positive for amphetamines, methamphetamines, cocaine and marijuana. Serum alcohol level is 472. Review of Systems ROS unobtainable: due to endotracheal tube Past Medical History Past Medical History: GERD/Reflux, Hypertension, Liver Disease, Skin Disorder Additional Past Medical History / Comment(s): Hepatitis C, Pancreatitis, DDD, back pain, bilateral carpel tunnel syndrome. In the past has reported that he has heart disease that was found when he had kidney problems but he denies having a stress test or cardiac catheterization. History of Any Multi-Drug Resistant Organisms: None Reported MDRO Source:: unknown Past Surgical History: No Surgical Hx Reported, Unable to Obtain Additional Past Surgical History / Comment(s): Pt states he has had numerous "cysts" removed from where he injected IV drugs. Past Anesthesia/Blood Transfusion Reactions: No Reported Reaction, Unable to Obtain Additional Past Anesthesia/Blood Transfusion Reaction / Comment(s): In the past pt reported that he has never had surgery Smoking Status: Current every day smoker - Past Family History Mother Family Medical History: Unable to Obtain, Rheumatoid Arthritis (RA) Additional Family Medical History / Comment(s): Mother is . Father Family Medical History: Coronary Artery Disease (CAD) Medications and Allergies Home Medications Medication Instructions Recorded Confirmed Type Haloperidol Decanoate [Haldol D] 200 mg IM Q14D 1 Days #1 each 07/10/23 08/28/23 Rx Allergies Allergy/AdvReac Type Severity Reaction Status Date / Time No Known Allergies Allergy Verified 08/28/23 16:33 Physical Exam Vitals: Vital Signs Temp Pulse Pulse Resp BP BP Pulse Ox 08/29/23 10:00 92 18 125/84 99 08/29/23 09:00 93 16 131/84 97 08/29/23 08:17 08/29/23 08:00 98.1 F 103 H 16 109/71 97 08/29/23 07:00 100 17 111/73 97 08/29/23 06:00 96 18 112/73 97 08/29/23 05:10 08/29/23 05:00 102 H 16 113/79 97 08/29/23 04:00 98.1 F 97 14 115/77 96 08/29/23 03:00 92 14 124/84 96 08/29/23 02:00 92 18 111/80 97 08/29/23 01:00 85 19 109/79 97 08/29/23 00:30 08/29/23 00:00 96.9 F L 88 17 106/74 97 08/28/23 23:31 92 14 97 08/28/23 23:00 89 16 120/78 96 08/28/23 22:00 84 19 129/91 100 08/28/23 21:50 84 19 100 08/28/23 21:45 08/28/23 21:40 96.4 F L 84 18 128/89 99 08/28/23 21:30 92 22 100 08/28/23 21:26 91 20 100 08/28/23 21:15 96.4 F L 84 18 128/89 99 08/28/23 21:10 97 16 130/93 100 08/28/23 20:59 99 16 130/93 98 08/28/23 20:19 08/28/23 19:00 124/87 08/28/23 18:52 83 16 127/88 99 08/28/23 18:00 60 16 128/68 98 08/28/23 17:00 85 16 126/89 99 08/28/23 16:52 96.5 F L 84 16 124/92 100 08/28/23 16:36 08/28/23 16:24 08/28/23 15:51 24 10/09/23 15:45 16 08/28/23 15:35 98 16 L 146/110 98 FiO2 08/29/23 10:00 08/29/23 09:00 08/29/23 08:17 40 08/29/23 08:00 40 08/29/23 07:00 08/29/23 06:00 08/29/23 05:10 40 08/29/23 05:00 08/29/23 04:00 40 08/29/23 03:00 08/29/23 02:00 08/29/23 01:00 08/29/23 00:30 40 08/29/23 00:00 40 08/28/23 23:31 08/28/23 23:00 08/28/23 22:00 08/28/23 21:50 08/28/23 21:45 40 08/28/23 21:40 40 08/28/23 21:30 08/28/23 21:26 08/28/23 21:15 40 08/28/23 21:10 08/28/23 20:59 08/28/23 20:19 40 08/28/23 19:00 08/28/23 18:52 08/28/23 18:00 08/28/23 17:00 08/28/23 16:52 08/28/23 16:36 100 08/28/23 16:24 100 08/28/23 15:51 08/28/23 15:45 08/28/23 15:35 Intake and Output 08/28/23 08/29/23 08/29/23 22:59 06:59 14:59 Intake Total 200.619 0490.528 520 Output Total 4000 1115 210 Balance -3557.358 1031.528 310 Intake: IV 375 1779 390 Dextrose 5%-0.9% NaCl 1, 375 000 ml @ 125 mls/hr IV . Q8H [facility] Rx#:[id number] Sodium Chloride 0.9% 1, 780 390 000 ml @ 130 mls/hr IV . Q7H42M [facility] Rx#:[id number] Sodium Chloride 0.9% 1, 999 000 ml @ 999 mls/hr IV . Q1H1M [facility] Rx#:[id number] Intake, IV Titration 67.642 267.528 130 Amount Dextrose 5%-0.45% NaCl 1, 130 000 ml @ 130 mls/hr IV . Q7H42M [facility] Rx#:[id number] propofoL 1,000 mg In 67.642 267.528 Empty Bag 1 bag @ 15 MCG/ KG/MIN 10.206 mls/hr IV . Q9H48M [facility] Rx#:[id number] Oral 100 Output: Urine 4000 1115 210 Other: Voiding Method Indwelling Catheter Indwelling Catheter Weight 91.6 kg 91.6 kg ABP, PAP, CO, CI - Last 8 Hours Arterial Blood Pressure 123/74 Arterial Blood Pressure 113/70 Arterial Blood Pressure 122/67 Arterial Blood Pressure 108/61 Arterial Blood Pressure 97/57 Arterial Blood Pressure 94/68 Arterial Blood Pressure 103/59 PHYSICAL EXAMINATION: Patient is currently intubated and on mechanical ventilator... HEENT: Normocephalic. Neck is supple. Pupils reactive. Nostrils clear. Oral cavi ty is moist. Neck reveals no JVD, carotid bruits, or thyromegaly. CHEST EXAMINATION: Trachea is central. Symmetrical expansion. Lung peña clear to auscultation and percussion. Bibasilar diminished sounds. CARDIAC: Normal S1, S2 with no gallops. No murmurs ABDOMEN: Soft. Bowel sounds present. Nontender. No organomegaly. No abdominal bruits. Extremities: reveal no edema. No clubbing or cyanosis Neurologically patient is sedated and intubated. No gross focal deficits noted Skin: No rash or skin lesions. Psychiatric: Could not be assessed at this time. Musculoskeletal: No joint swelling or deformity. Results CBC & Chem 7: 08/29/23 03:22 08/29/23 03:22 Labs: Abnormal Lab Results - Last 24 Hours (Table) 08/28/23 08/28/23 08/28/23 Range/Units 16:20 16:20 17:10 ABG pO2 (83-108) mmHg ABG Total CO2 (19-24) mmol/L ABG O2 Saturation (94-97) % Sodium 136 L (137-145) mmol/L Chloride 97 L (98-107) mmol/L BUN (9-20) mg/dL Glucose 107 H (74-99) mg/dL POC Glucose (mg/dL) (70-110) mg/dL Plasma Lactic Acid Sohail 2.8 H* (0.7-2.0) mmol/L Calcium (8.4-10.2) mg/dL AST 60 H (17-59) U/L Ur Amphetamines Screen Detected H (NotDetected) U Methamphetamines Scrn Detected H (NotDetected) Urine Cocaine Screen Detected H (NotDetected) U Marijuana (THC) Screen Detected H (NotDetected) Serum Alcohol 472 H* mg/dL 08/28/23 08/28/23 08/28/23 Range/Units 17:32 20:23 21:23 ABG pO2 >400 H (83-108) mmHg ABG Total CO2 (19-24) mmol/L ABG O2 Saturation 100.0 H (94-97) % Sodium (137-145) mmol/L Chloride (98-107) mmol/L BUN (9-20) mg/dL Glucose (74-99) mg/dL POC Glucose (mg/dL) 124 H (70-110) mg/dL Plasma Lactic Acid Sohail 3.1 H* (0.7-2.0) mmol/L Calcium (8.4-10.2) mg/dL AST (17-59) U/L Ur Amphetamines Screen (NotDetected) U Methamphetamines Scrn (NotDetected) Urine Cocaine Screen (NotDetected) U Marijuana (THC) Screen (NotDetected) Serum Alcohol mg/dL 08/29/23 08/29/23 08/29/23 Range/Units 00:32 03:22 03:22 ABG pO2 (83-108) mmHg ABG Total CO2 (19-24) mmol/L ABG O2 Saturation (94-97) % Sodium (137-145) mmol/L Chloride 111 H (98-107) mmol/L BUN 8 L (9-20) mg/dL Glucose 101 H (74-99) mg/dL POC Glucose (mg/dL) (70-110) mg/dL Plasma Lactic Acid Sohail 2.3 H* 2.1 H* (0.7-2.0) mmol/L Calcium 8.3 L (8.4-10.2) mg/dL AST (17-59) U/L Ur Amphetamines Screen (NotDetected) U Methamphetamines Scrn (NotDetected) Urine Cocaine Screen (NotDetected) U Marijuana (THC) Screen (NotDetected) Serum Alcohol mg/dL 08/29/23 08/29/23 Range/Units 05:20 05:35 ABG pO2 145 H (83-108) mmHg ABG Total CO2 25 H (19-24) mmol/L ABG O2 Saturation 98.6 H (94-97) % Sodium (137-145) mmol/L Chloride (98-107) mmol/L BUN (9-20) mg/dL Glucose (74-99) mg/dL POC Glucose (mg/dL) (70-110) mg/dL Plasma Lactic Acid Sohail 2.2 H* (0.7-2.0) mmol/L Calcium (8.4-10.2) mg/dL AST (17-59) U/L Ur Amphetamines Screen (NotDetected) U Methamphetamines Scrn (NotDetected) Urine Cocaine Screen (NotDetected) U Marijuana (THC) Screen (NotDetected) Serum Alcohol mg/dL Thrombosis Risk Factor Assmnt - DVT/VTE Prophylaxis DVT/VTE Prophylaxis: Pharmacologic Prophylaxis ordered - Choose All That Apply Each Factor Represents 1 point: Medical pt on bed rest Other Risk Factors: No Other congenital or acquired thrombophilia - If yes, enter type in comment: No Thrombosis Risk Factor Assessment Total Risk Factor Score: 1 Thrombosis Risk Factor Assessment Level: Low Risk Assessment and Plan Assessment: Altered mental status due to drug overdose and alcohol intoxication. Currently intubated and on mechanical ventilator for airway protection. Acute alcohol intoxication Polysubstance use with UDS positive for amphetamines, methamphetamines, cocaine and marijuana. Lactic acidosis on admission. Hepatitis C. Treatment history not known. Severe alcohol abuse Depression with prior history of suicide attempt Schizoaffective disorder Chronic back pain Currently everyday smoker DVT prophylaxis with heparin subcu. Plan: Patient is currently in the MICU. Intubated and sedated. Patient is on Precedex drip and fentanyl drip. Continue with IV hydration. Follow-up repeat lactic acid level. Alcohol withdrawal protocol. Continue to monitor electrolytes. GI and DVT prophylaxis. Pulmonary is on board. Follow closely. Time with Patient: Greater than 30
[2023-08-30 00:06] LABS: Glucose,Whole Blood 110 mg/dL (70-110)
[2023-08-30] MEDS: SODIUM CHLORIDE 0.9% 80 ML with fentaNYL (PF) 1,000 MCG IV SCH ×6 (00:28→22:25)
[2023-08-30] MEDS: INSULIN ASPART (NovoLOG) 100 UNIT/ML VIAL SQ SCH ×4 (01:16→18:04)
[2023-08-30] MEDS: HEPARIN SODIUM,PORCINE 5,000 UNIT/ML 1 ML VIAL SQ SCH ×3 (01:18→16:06)
[2023-08-30] MEDS: MIDAZOLAM HCL 50 MG in SODIUM CHLORIDE 0.9% 40 ML IV SCH ×4 (02:11→20:28)
[2023-08-30 03:36] LABS: Basophils % (A) 0 %; Eosinophils # (A) 0.2 k/uL (0-0.7); Eosinophils % (A) 1 %; HCT 33.1 % (39.0-53.0); HGB 11.1 gm/dL (13.0-17.5); Lymphocytes # (A) 1.7 k/uL (1.0-4.8); Lymphocytes % (A) 15 %; MCH 28.6 pg (25.0-35.0); MCHC 33.6 g/dL (31.0-37.0); MCV 85.2 fL (80.0-100.0); Mean Platelet Volume 9.5; Monocytes # (A) 0.6 k/uL (0-1.0); Monocytes % (A) 5 %; Neutrophils # (A) 8.6 k/uL (1.3-7.7); Neutrophils % (A) 77 %; Platelet Count 153 k/uL (150-450); RBC 3.88 m/uL (4.30-5.90); RDW 13.5 % (11.5-15.5); WBC 11.2 k/uL (3.8-10.6)
[2023-08-30 03:44] LABS: Calcium 8.5 mg/dL (8.4-10.2); Chloride 109 mmol/L (98-107); Potassium 3.8 mmol/L (3.5-5.1); Sodium 137 mmol/L (137-145)
[2023-08-30 03:47] LABS: African American GFR (CKD) >90 (>60 ml/min/1.73 sqM); Anion Gap 3 mmol/L; Blood Urea Nitrogen 12 mg/dL (9-20); Carbon Dioxide 25 mmol/L (22-30); Glucose 97 mg/dL (74-99); Non-African American GFR(CKD) >90 (>60 ml/min/1.73 sqM)
[2023-08-30 05:04] LABS: Glucose,Whole Blood 99 mg/dL (70-110)
[2023-08-30] MEDS: DEXTROSE 5%-0.45% NACL 1,000 ML IV SCH ×3 (05:07→17:48)
[2023-08-30] MEDS: DEXMEDETOMIDINE/0.9% NACL(PMX) 400 MCG in EMPTY BAG 1 BAG IV SCH (07:35)
[2023-08-30] MEDS: PANTOPRAZOLE 40 MG/10 ML VIAL IV SCH (08:11)
[2023-08-30] MEDS: CHLORHEXIDINE GLUCONATE 15 ML CUP MUCOUS MEM SCH ×2 (08:11→22:08)
[2023-08-30] MEDS: THIAMINE 100 MG/ML 2 ML VIAL IVP SCH (08:11)
--- NOTE | 2023-08-30 08:32 | XR ---
EXAMINATION TYPE: XR chest 1V portable DATE OF EXAM: 08/30/2023 COMPARISON: 08/29/2023 HISTORY: Tube placement TECHNIQUE: Single frontal view of the chest is obtained. FINDINGS: ET and NG tube appear in similar position ET tube approximately 4 cm above the catherine. NG tube appears coiled overlying the left upper abdomen likely in the gastric body. Progression of [place] es of the left lung base and small effusion. Right lung clear. Heart size is stable. No sizable pneum othorax. IMPRESSION: 1. Increasing left lower lobe infiltrate and small effusion.
[2023-08-30 12:13] LABS: Glucose,Whole Blood 101 mg/dL (70-110)
--- NOTE | 2023-08-30 13:14 | P.PN ---
Subjective Progress Note Date: 08/30/23 Principal diagnosis: Multiple drugs overdose I am seeing this patient in new consultation today 08/29/2023 in the intensive care unit after the patient was found unresponsive outside of the hospital, and intubated for airway protection in the emergency room. Patient is a 37-year-old white male with past medical history significant for polysubstance abuse and prior overdoses requiring intubation, history of depression and suicidal attempts, schizoaffective disorder, hepatitis C, and alcohol abuse. Patient is currently intubated mechanical ventilator and unable to provide any information. Patient had a recent ICU admission back in Mar, 2023 for lithium overdose. He has since been taken off lithium. Patient was brought to the emergency room by EMS yesterday afternoon. Apparently, he was found on the side of a [facility]. He was unresponsive. He was given multiple doses of Narcan without much improvement. When he arrived to the emergency room, he was intubated by the ER physician. Postintubation chest x-ray shows the endotracheal tube approximately 5.4 cm from the catherine. There was an orogastric tube coursing below the diaphragm. No focal infiltrates or evidence of pneumonia. CT of the brain and C-spine without contrast showed no acute intracranial process. No evidence of C-spine fracture. Patient was admitted to the intensive care unit. He is curr ently intubated to the mechanical ventilator and synchronous. He is sedated on propofol which is currently infusing at 50 mcg/kg/m. Current ventilator settings include assist control, respiratory 14, tidal volume 500, FiO2 40%, and PEEP of 5. Postintubation ABG shows a pO2 greater than 400, pCO2 36, pH of 7.41. CBC on admission was unremarkable. Most recent CMP shows a sodium 145, potassium 3.8, chloride 111, serum bicarb 22, BUN 8, creatinine 0.72, glucose 101. Lactic acid level was elevated, and is down to 2.3. LFTs nonelevated. Troponin less than 0.012. Urine tox screen was positive for amphetamines, methamphetamines, cocaine, and marijuana. Patient was also intoxicated on arriv al with a serum alcohol level 472. Patient has been started on the CIWA protocol. Blood pressure is normotensive. Not requiring any vasopressors. There is an indwelling urinary catheter, urine output is adequate. He will be monitored in the intensive care unit. Patient was evaluated today on 08/30/2023, remains in the ICU, intubated and mechanically ventilated. He is on assist control rate of 14 tidal volume 500 FiO2 40% and EPAP of 5 he was on 50% earlier and his ABG showed a pO2 of 120 pCO2 45 pH of 7.37. Hence FiO2 was cut down to 40%. Patient remains quite sedated, requiring significant amount of sedation mostly because yesterday he became extremely agitated and could not ventilate the patient properly without using multiple medications to keep him sedated and relaxed in order to ventilator properly. Patient did receive Nimbex intermittently that I changed him to fentanyl at 20 mcg/kg/m also had to use versed at 9 mg per hour, and I had to increase the propofol as high as 75 mcg/kg/m. It took that much medication to keep him calm and to make him synchronous with the ventilator otherwise the patient was going wild and extremely agitated, thrashing in bed, and was about to pull his tubes and lines. Patient is now on fentanyl at 20 mcg/kg/h and Versed and 50 mg per hour and I'm cutting it down further is also on propofol at 60 mcg/kg/m receiving vital H before nutritional support at 50 mL per hour via orogastric tube. Today I plan to cut down his propofol to 50 fentanyl down to 0.5 and I'm hoping I could discontinue his Versed. WBC count is 11.2 hemoglobin is 11.1 electrolytes are normal renal profile is normal chest x-ray is showing left lower lobe atelectasis and small left pleural effusion doubt pneumonia. Objective - Vital Signs Vital signs: Vital Signs Temp 97.5 F L 08/30/23 12:00 Pulse 63 08/30/23 13:00 Resp 14 08/30/23 13:00 BP 93/61 08/30/23 13:00 Pulse Ox 100 08/30/23 13:00 FiO2 40 08/30/23 12:00 Intake & Output 08/29/23 08/30/23 08/30/23 18:59 06:59 18:59 Intake Total 9231.267 2536.826 1515.061 Output Total 545 405 370 Balance 6360.514 6778.826 1145.061 Weight 91.6 kg Intake: IV 390 1430 910 Dextrose 5%-0.45% NaCl 1, 1430 910 000 ml @ 130 mls/hr IV . Q7H42M [facility] Rx#:[id number] Sodium Chloride 0.9% 1, 390 000 ml @ 130 mls/hr IV . Q7H42M [facility] Rx#:[id number] Intake, IV Titration 1564.728 724.826 335.061 Amount Cisatracurium 200 mg In 31.16 Sodium Chloride 0.9% 180 ml @ 2 MCG/KG/MIN 10.992 mls/hr IV .[id number] [facility] Rx #:[id number] Dexmedetomidine/0.9% NaCl 19.351 (Pmx) 400 mcg In Empty Bag 1 bag @ 0.2 MCG/KG/HR 4.58 mls/hr IV .[id number] [facility] Rx#:[id number] Dextrose 5%-0.45% NaCl 1, 1170 130 000 ml @ 130 mls/hr IV . Q7H42M [facility] Rx#:[id number] Midazolam HCl 50 mg In 26.017 112.751 35.217 Sodium Chloride 0.9% 40 ml @ 10 MG/HR 10 mls/hr IV .Q5H [facility] Rx#:[id number] Sodium Chloride 0.9% 80 18.2 82.075 99.844 ml @ 1 MCG/KG/HR 9.16 mls /hr IV .[id number] [facility] with fentaNYL (PF) 1,000 mcg Rx#:[id number] propofoL 1,000 mg In 300.000 400.000 200.000 Empty Bag 1 bag @ 15 MCG/ KG/MIN 10.206 mls/hr IV . Q9H48M [facility] Rx#:[id number] Tube Feeding 280 210 Other 120 60 Output: Urine 545 405 370 Other: Voiding Method Indwelling Catheter Indwelling Catheter Indwelling Catheter ABP, PAP, CO, CI - Last Documented Arterial Blood Pressure 101/58 - Exam GENERAL EXAM: 57-year-old white male intubated, mechanically ventilated, sedated HEAD: Normocephalic and atraumatic, endotracheal tube and orogastric tube are intact EYES: Normal reaction of pupils, equal size. NOSE: Clear with pink turbinates. THROAT: No erythema or exudates. NECK: No masses, no JVD. CHEST: No chest wall deformity. LUNGS: Equal air entry with no crackles, wheeze, rhonchi or dullness. CVS: S1 and S2 normal with no audible murmur, regular rhythm. No extra heart sounds ABDOMEN: No hepatosplenomegaly, active bowel sounds, no guarding or rigidity. SPINE: No scoliosis or deformity SKIN: No rashes CENTRAL NERVOUS SYSTEM: Patient is sedated, , on multiple drips as noted earlier EXTREMITIES: There is no peripheral edema, clubbing, or cyanosis. Peripheral pulses are intact. - Labs CBC & Chem 7: 08/30/23 03:23 08/30/23 03:23 Labs: Abnormal Lab Results - Last 24 Hours (Table) 08/29/23 08/30/23 08/30/23 Range/Units 17:52 03: 03:23 WBC 11.2 H (3.8-10.6) k/uL RBC 3.88 L (4.30-5.90) m/uL Hgb 11.1 L (13.0-17.5) gm/dL Hct 33.1 L (39.0-53.0) % Neutrophils # 8.6 H (1.3-7.7) k/uL Chloride 109 H (98-107) mmol/L POC Glucose (mg/dL) 129 H (70-110) mg/dL Microbiology - Last 24 Hours (Table) 08/28/23 16:25 Gram Stain - Preliminary Sputum Assessment and Plan Assessment: Impression: Altered mental status secondary to multiple drugs overdose required intubation and mechanical ventilation to protect his airways Acute multiple drugs overdose and acute alcohol intoxication Acute alcohol intoxication Polysubstance abuse History of depression and previous suicidal attempts Schizoaffective disorder History of hepatitis C Tobacco dependence syndrome Recommendation: Continue ventilatory support Continue sedation however cut down to the least amount possible and hopefully try to assess mental status on a daily basis on lower dose of sedation Continue GI and DVT prophylaxis Continue nutritional support Empiric antibiotics last Zosyn, chest x-ray is showing left lower lobe atelectasis, possible pneumonia, and his presentation the patient could have easily aspirated Continue daily labs Daily chest x-rays Daily assessment of mental status on lower dose or off sedation if possible Not quite ready for weaning considering the patient required that but sedation to keep him calm. Prognosis is guarded Patient is critically ill We will continue to follow Critical care time is over 30 Time with Patient: Greater than 30
[2023-08-30 18:00] LABS: Glucose,Whole Blood 103 mg/dL (70-110)
[2023-08-30] MEDS: LORazepam 2 MG/ML INJ IV PRN (20:02)
[2023-08-30] MEDS: ACETAMINOPHEN TAB 325 MG TAB PO PRN (23:21)
--- NOTE | 2023-08-30 23:41 | P.PN ---
Subjective Patient is a 37-year-old male with a past medical history of hypertension, GERD, polysubstance abuse, hepatitis C, chronic back pain, currently everyday smoker and alcohol abuse was brought to the hospital by EMS as he was found unconscious at the [facility]. Patient was given Narcan intranasal x2 without much improvement. Patient was brought to the ER. Patient was intubated for airway protection. Currently sedated. Patient had previous admission to MICU due to drug overdose with lithium. Chest x-ray showed no acute cardiopulmonary process. Support tubes in appropriate position. EKG showed sinus rhythm. CT of the head and cervical spine showed no acute intracranial process. No evidence of cervical spine fracture. Support Endo tracheal tube in appropriate position. Laboratory data showed WBC 8.4 hemoglobin 15.3 and platelets 247 Sodium 136 potassium 3.8 chloride 97 bicarb is 22 BUN 13 and creatinine 0.94 and lactic acid 2.8 AST 60 ALT 28 and alk phos 52 troponin x1 negative. Urinalysis is UDS is positive for amphetamines, methamphetamines, cocaine and marijuana. Serum alcohol level is 472. Active Medications Generic Name Dose Route Start Last Admin Trade Name Freq PRN Reason Stop Dose Admin Acetaminophen 650 mg 08/30/23 22:44 08/30/23 23:21 Acetaminophen Tab 325 Mg Tab PO 650 mg Q6HR PRN Administration Fever and/ or Pain Chlorhexidine Gluconate 15 ml 08/28/23 21:00 08/30/23 08:11 Chlorhexidine Gluconate 15 Ml Cup MUCOUS MEM 15 ml BID [facility] Administration Dextrose/Water 25 ml 08/29/23 17:51 Dextrose 50% Syringe 50 Ml IVP PER PROTOCOL PRN Hypoglycemia Protocol Dextrose/Water 50 ml 08/29/23 17:51 Dextrose 50% Syringe 50 Ml IVP PER PROTOCOL PRN Hypoglycemia Protocol Heparin Sodium (Porcine) 5,000 unit 08/29/23 00:00 08/30/23 16:06 Heparin Sodium,Porcine 5,000 Unit/Ml 1 Ml Vial SQ 5,000 unit Q8HR [facility] Administration Propofol 1,000 mg/ IV Solution 100 mls @ 10.206 mls/hr 08/28/23 16:30 08/30/23 20:10 IV 65 mcg/kg/min .Q9H48M [facility] 44.225 mls/hr Administration Protocol 15 MCG/KG/MIN Dextrose/Sodium Chloride 1,000 mls @ 130 mls/hr 08/29/23 09:30 08/30/23 17:48 Dextrose 5%-1/2ns Iv Soln IV Not Given .Q7H42M [facility] Dexmedetomidine HCl 400 mcg/ 100 mls @ 4.58 mls/hr 08/29/23 10:15 08/30/23 07:35 IV Solution IV Not Given .[id number] [facility] Protocol 0.2 MCG/KG/HR Midazolam HCl 50 mg/ Sodium 50 mls @ 10 mls/hr 08/29/23 15:30 08/30/23 20:28 Chloride IV 5 mg/hr .Q5H [facility] 5 mls/hr Administration Protocol 10 MG/HR Fentanyl Citrate 1,000 mcg/ 100 mls @ 9.16 mls/hr 08/29/23 16:30 08/30/23 22:25 Sodium Chloride IV 1 mcg/kg/hr .[id number] [facility] 9.16 mls/hr Administration 1 MCG/KG/HR Insulin Aspart 0 unit 08/29/23 18:00 08/30/23 18:04 Insulin Aspart (Novolog) 100 Unit/Ml Vial SQ Not Given Q6HR [facility] Protocol Lorazepam 2 mg 08/28/23 16:25 08/30/23 20:02 Lorazepam 2 Mg/Ml Inj IV 2 mg Q1HR PRN Administration Severe Agitation Lorazepam 1 mg 08/28/23 16:25 Lorazepam 2 Mg/Ml Inj IV Q1HR PRN Mild Agitation Naloxone HCl 1 mg 08/28/23 15:48 08/28/23 15:51 Naloxone 0.4 Mg/Ml 1 Ml Vial IVP 1 mg ONCE PRN Administration Opioid Reversal Naloxone HCl 0.2 mg 08/28/23 19:50 Naloxone 0.4 Mg/Ml 1 Ml Vial IV Q2M PRN Opioid Reversal Pantoprazole Sodium 40 mg 08/29/23 09:00 08/30/23 08:11 Pantoprazole 40 Mg/10 Ml Vial IV 40 mg DAILY [facility] Administration Thiamine HCl 100 mg 08/29/23 10:30 08/30/23 08:11 Thiamine 100 Mg/Ml 2 Ml Vial IVP 100 mg DAILY [facility] Administration Objective - Vital Signs Vital signs: Vital Signs Temp 98.1 F 08/30/23 08:00 Pulse 61 08/30/23 11:00 Resp 14 08/30/23 11:00 BP 94/56 08/30/23 11:00 Pulse Ox 100 08/30/23 11:00 FiO2 40 08/30/23 12:00 Intake & Output 08/29/23 08/30/23 08/30/23 18:59 06:59 18:59 Intake Total 9840.751 6318.826 1165.061 Output Total 545 405 260 Balance 2804.877 9315.826 905.061 Weight 91.6 kg Intake: IV 390 1430 650 Dextrose 5%-0.45% NaCl 1, 1430 650 000 ml @ 130 mls/hr IV . Q7H42M [facility] Rx#:[id number] Sodium Chloride 0.9% 1, 390 000 ml @ 130 mls/hr IV . Q7H42M [facility] Rx#:[id number] Intake, IV Titration 1564.728 724.826 335.061 Amount Cisatracurium 200 mg In 31.16 Sodium Chloride 0.9% 180 ml @ 2 MCG/KG/MIN 10.992 mls/hr IV .[id number] [facility] Rx #:[id number] Dexmedetomidine/0.9% NaCl 19.351 (Pmx) 400 mcg In Empty Bag 1 bag @ 0.2 MCG/KG/HR 4.58 mls/hr IV .[id number] [facility] Rx#:[id number] Dextrose 5%-0.45% NaCl 1, 1170 130 000 ml @ 130 mls/hr IV . Q7H42M [facility] Rx#:[id number] Midazolam HCl 50 mg In 26.017 112.751 35.217 Sodium Chloride 0.9% 40 ml @ 10 MG/HR 10 mls/hr IV .Q5H [facility] Rx#:[id number] Sodium Chloride 0.9% 80 18.2 82.075 99.844 ml @ 1 MCG/KG/HR 9.16 mls /hr IV .[id number] [facility] with fentaNYL (PF) 1,000 mcg Rx#:[id number] propofoL 1,000 mg In 300.000 400.000 200.000 Empty Bag 1 bag @ 15 MCG/ KG/MIN 10.206 mls/hr IV . Q9H48M [facility] Rx#:[id number] Tube Feeding 280 150 Other 120 30 Output: Urine 545 405 260 Other: Voiding Method Indwelling Catheter Indwelling Catheter Indwelling Catheter ABP, PAP, CO, CI - Last Documented Arterial Blood Pressure 113/63 - Exam -GENERAL: The patient is intubated and sedated HEENT: Pupils are round and equally reacting to light. EOMI. No scleral icterus. No conjunctival pallor. Normocephalic, atraumatic. No pharyngeal erythema. No thyromegaly. CARDIOVASCULAR: S1 and S2 present. No murmurs, rubs, or gallops. PULMONARY: Chest is clear to auscultation, no wheezing , no crackles. ABDOMEN: Soft, nontender, nondistended, normoactive bowel sounds. No palpable organomegaly. MUSCULOSKELETAL: No joint swelling or deformity. EXTREMITIES: No cyanosis, clubbing, or pedal edema. NEUROLOGICAL: Gross neurological examination did not reveal any focal deficits. SKIN: No rashes. no petechiae. - Labs CBC & Chem 7: 08/30/23 03:23 08/30/23 03:23 Labs: Abnormal Lab Results - Last 24 Hours (Table) 08/29/23 08/30/23 08/30/23 Range/Units 17:52 03:23 03:23 WBC 11.2 H (3.8-10.6) k/uL RBC 3.88 L (4.30-5.90) m/uL Hgb 11.1 L (13.0-17.5) gm/dL Hct 33.1 L (39.0-53.0) % Neutrophils # 8.6 H (1.3-7.7) k/uL Chloride 109 H (98-107) mmol/L POC Glucose (mg/dL) 129 H (70-110) mg/dL Microbiology - Last 24 Hours (Table) 08/28/23 16:25 Gram Stain - Preliminary Sputum Assessment and Plan Assessment: Metabolic/toxic encephalopathy. Altered mental status due to drug overdose and alcohol intoxication. Currently intubated and on mechanical ventilator for airway protection. Acute alcohol intoxication Polysubstance use with UDS positive for amphetamines, methamphetamines, cocaine and marijuana. Inability to protect airway requiring intubation and mechanical ventilation Lactic acidosis on admission. Improved Hepatitis C. Treatment history not known. Severe alcohol abuse Depression with prior history of suicide attempt Schizoaffective disorder Chronic back pain Currently everyday smoker Plan: Patient continue with mechanical ventilation with pulmonary/Care team helping with his vent management. Continue with subcutaneous as per management of critical care team, he received Nimbex, propofol, fentanyl and Medozalam drip Labs and medication were reviewed.. Continue same treatment. Continue with symptomatic treatment. Resume home medication. Monitor labs and vitals. DVT and GI prophylaxis. Further recommendations as per clinical course of the patient DVT prophylaxis: Subcutaneous heparin GI Prophylaxis: Ppi PT/OT: Pending Prognosis is guarded
[2023-08-31 00:11] LABS: Glucose,Whole Blood 88 mg/dL (70-110)
[2023-08-31] MEDS: INSULIN ASPART (NovoLOG) 100 UNIT/ML VIAL SQ SCH ×4 (01:46→17:56)
[2023-08-31] MEDS: DEXTROSE 5%-0.45% NACL 1,000 ML IV SCH ×2 (01:52→07:47)
[2023-08-31] MEDS: HEPARIN SODIUM,PORCINE 5,000 UNIT/ML 1 ML VIAL SQ SCH ×3 (01:53→16:47)
[2023-08-31 02:47] LABS: Glucose,Whole Blood 86 mg/dL (70-110)
[2023-08-31] MEDS: MIDAZOLAM HCL 50 MG in SODIUM CHLORIDE 0.9% 40 ML IV SCH ×4 (04:18→19:06)
[2023-08-31] MEDS: PIPERACILLIN-TAZOBACTAM 3.375 GM in SODIUM CHLORIDE 0.9% 100 ML IVPB SCH ×3 (04:19→18:43)
[2023-08-31 05:30] LABS: Glucose,Whole Blood 75 mg/dL (70-110)
[2023-08-31] MEDS: DEXMEDETOMIDINE/0.9% NACL(PMX) 400 MCG in EMPTY BAG 1 BAG IV SCH (05:31)
[2023-08-31 05:39] LABS: Basophils % (A) 0 %; Eosinophils # (A) 0.2 k/uL (0-0.7); Eosinophils % (A) 2 %; HCT 32.2 % (39.0-53.0); HGB 10.9 gm/dL (13.0-17.5); Lymphocytes # (A) 1.3 k/uL (1.0-4.8); Lymphocytes % (A) 14 %; MCH 28.9 pg (25.0-35.0); MCV 85.1 fL (80.0-100.0); Mean Platelet Volume 9.3; Monocytes # (A) 0.4 k/uL (0-1.0); Monocytes % (A) 4 %; Neutrophils # (A) 7.4 k/uL (1.3-7.7); Neutrophils % (A) 79 %; Platelet Count 125 k/uL (150-450); RBC 3.78 m/uL (4.30-5.90); RDW 13.4 % (11.5-15.5); WBC 9.3 k/uL (3.8-10.6)
[2023-08-31 06:24] LABS: African American GFR (CKD) >90 (>60 ml/min/1.73 sqM); Anion Gap 5 mmol/L; Blood Urea Nitrogen 7 mg/dL (9-20); Carbon Dioxide 24 mmol/L (22-30); Chloride 107 mmol/L (98-107); Glucose 88 mg/dL (74-99); Non-African American GFR(CKD) >90 (>60 ml/min/1.73 sqM); Potassium 3.4 mmol/L (3.5-5.1); Sodium 136 mmol/L (137-145)
[2023-08-31 06:31] LABS: ABG Base Excess 0.2 mmol/L; ABG HCO3 25 mmol/L (21-25); ABG PCO2 43 mmHg (35-45); ABG PH 7.38 (7.35-7.45); ABG PO2 75 mmHg (83-108); ABG TCO2 27 mmol/L (19-24); Allen Test Performed? Yes
[2023-08-31] MEDS ORDERED: Potassium Replacement Protocol 1 EACH MISC MISCELLANE PRN (07:05)
[2023-08-31] MEDS: SODIUM CHLORIDE 0.9% 80 ML with fentaNYL (PF) 1,000 MCG IV SCH ×4 (07:48→19:03)
[2023-08-31] MEDS: POTASSIUM BICARBONATE/CIT AC 20 MEQ TABLET.EFF NG-TUBE SCH ×4 (08:16→22:35)
[2023-08-31] MEDS: PANTOPRAZOLE 40 MG/10 ML VIAL IV SCH (08:17)
[2023-08-31] MEDS: CHLORHEXIDINE GLUCONATE 15 ML CUP MUCOUS MEM SCH ×2 (08:17→20:33)
[2023-08-31] MEDS: THIAMINE 100 MG/ML 2 ML VIAL IVP SCH (08:17)
--- NOTE | 2023-08-31 08:21 | XR ---
EXAMINATION TYPE: XR chest 1V portable DATE OF EXAM: 08/31/2023 COMPARISON: 08/30/2023 HISTORY: Tube placement TECHNIQUE: Single frontal view of the chest is obtained. FINDINGS: ET and NG tube appear in similar position ET tube approximately 4 cm above the catherine. NG tube appears coiled overlying the left upper abdomen likely in the gastric body. Stable left-sided co nsolidation and pleural effusion. There is interval development of right lower lobe joint small effus ion.. Heart size is stable. No sizable pneumothorax. IMPRESSION: 1. Interval development of right lower lobe infiltrate and small effusion. Stable left-sided consolid ation and small pleural effusion.
[2023-08-31] MEDS: SODIUM CHLORIDE 0.9% 1,000 ML IV SCH ×2 (09:42→19:02)
[2023-08-31 11:39] LABS: Glucose,Whole Blood 97 mg/dL (70-110)
--- NOTE | 2023-08-31 13:00 | P.PN ---
Subjective Patient is a 37-year-old male with a past medical history of hypertension, GERD, polysubstance abuse, hepatitis C, chronic back pain, currently everyday smoker and alcohol abuse was brought to the hospital by EMS [facility] Patient was given Narcan intranasal x2 without much improvement. Patient was brought to the ER. Patient was intubated for airway protection. Currently sedated. Patient had previous admission to MICU due to drug overdose with lithium. Chest x-ray showed no acute cardiopulmonary process. Support tubes in appropriate position. EKG showed sinus rhythm. CT of the head and cervical spine showed no acute intracranial process. No evidence of cervical spine fracture. Support Endo tracheal tube in appropriate position. Laboratory data showed WBC 8.4 hemoglobin 15.3 and platelets 247 Sodium 136 potassium 3.8 chloride 97 bicarb is 22 BUN 13 and creatinine 0.94 and lactic acid 2.8 AST 60 ALT 28 and alk phos 52 troponin x1 negative. Urinalysis is UDS is positive for amphetamines, methamphetamines, cocaine and marijuana. Serum alcohol level is 472. 08/31/2023 patient remains intubated to protect his airway on mechanical ventilation. His FiO2 is 40% and PEEP is 5. Patient still requiring sedatives and he got extubated easily and hypoxic on to try to taper him down. Currently he is on midazolam 5 mg/h and propofol 50 g per hour. Also he is in restraints. Repeat chest x-ray this morning shows right lower lobe infiltrate suspicious for sebaceous pneumonia patient was started on Zosyn Active Medications Generic Name Dose Route Start Last Admin Trade Name Freq PRN Reason Stop Dose Admin Acetaminophen 650 mg 08/30/23 22:44 08/30/23 23:21 Acetaminophen Tab 325 Mg Tab PO 650 mg Q6HR PRN Administration Fever and/ or Pain Chlorhexidine Gluconate 15 ml 08/28/23 21:00 08/31/23 08:17 Chlorhexidine Gluconate 15 Ml Cup MUCOUS MEM 15 ml BID [facility] Administration Dextrose/Water 25 ml 08/29/23 17:51 Dextrose 50% Syringe 50 Ml IVP PER PROTOCOL PRN Hypoglycemia Protocol Dextrose/Water 50 ml 08/29/23 17:51 Dextrose 50% Syringe 50 Ml IVP PER PROTOCOL PRN Hypoglycemia Protocol Heparin Sodium (Porcine) 5,000 unit 08/29/23 00:00 08/31/23 08:17 Heparin Sodium,Porcine 5,000 Unit/Ml 1 Ml Vial SQ 5,000 unit Q8HR [facility] Administration Propofol 1,000 mg/ IV Solution 100 mls @ 10.206 mls/hr 08/28/23 16:30 08/31/23 11:17 IV 50 mcg/kg/min .Q9H48M [facility] 34.019 mls/hr Titration Protocol 15 MCG/KG/MIN Dexmedetomidine HCl 400 mcg/ 100 mls @ 4.58 mls/hr 08/29/23 10:15 08/31/23 05:31 IV Solution IV Not Given .[id number] [facility] Protocol 0.2 MCG/KG/HR Midazolam HCl 50 mg/ Sodium 50 mls @ 10 mls/hr 08/29/23 15:30 08/31/23 12:43 Chloride IV 4 mg/hr .Q5H [facility] 4 mls/hr Administration Protocol 10 MG/HR Fentanyl Citrate 1,000 mcg/ 100 mls @ 9.16 mls/hr 08/29/23 16:30 08/31/23 07:48 Sodium Chloride IV 1 mcg/kg/hr .[id number] [facility] 9.16 mls/hr Administration 1 MCG/KG/HR Piperacillin Sod/Tazobactam 100 mls @ 25 mls/hr 08/31/23 03:00 08/31/23 11:17 Sod 3.375 gm/ Sodium Chloride IVPB 25 mls/hr Q8H [facility] Administration Protocol Sodium Chloride 1,000 mls @ 130 mls/hr 08/31/23 09:30 08/31/23 09:42 Saline 0.9% IV 130 mls/hr .Q7H42M [facility] Administration Insulin Aspart 0 unit 08/29/23 18:00 08/31/23 12:33 Insulin Aspart (Novolog) 100 Unit/Ml Vial SQ Not Given Q6HR [facility] Protocol Lorazepam 2 mg 08/28/23 16:25 08/30/23 20:02 Lorazepam 2 Mg/Ml Inj IV 2 mg Q1HR PRN Administration Severe Agitation Lorazepam 1 mg 08/28/23 16:25 Lorazepam 2 Mg/Ml Inj IV Q1HR PRN Mild Agitation Miscellaneous Information 1 each 08/31/23 07:05 Potassium Replacement Protocol 1 Each Misc MISCELLANE DAILY PRN Per Protocol Protocol Naloxone HCl 1 mg 08/28/23 15:48 08/28/23 15:51 Naloxone 0.4 Mg/Ml 1 Ml Vial IVP 1 mg ONCE PRN Administration Opioid Reversal Naloxone HCl 0.2 mg 08/28/23 19:50 Naloxone 0.4 Mg/Ml 1 Ml Vial IV Q2M PRN Opioid Reversal Pantoprazole Sodium 40 mg 08/29/23 09:00 08/31/23 08:17 Pantoprazole 40 Mg/10 Ml Vial IV 40 mg DAILY [facility] Administration Thiamine HCl 100 mg 08/29/23 10:30 08/31/23 08:17 Thiamine 100 Mg/Ml 2 Ml Vial IVP 100 mg DAILY [facility] Administration Objective - Vital Signs Vital signs: Vital Signs Temp 100.9 F H 08/31/23 05:00 Pulse 80 08/31/23 07:00 Resp 15 08/31/23 07:00 BP 110/62 08/31/23 07:00 Pulse Ox 98 08/31/23 07:00 FiO2 40 08/31/23 05:15 Intake & Output 08/30/23 08/31/23 08/31/23 18:59 06:59 18:59 Intake Total 2554.344 2771.967 85.951 Output Total 610 1830 Balance 1944.344 941.967 85.951 Weight 97.8 kg Intake: IV 1560 1690 Dextrose 5%-0.45% NaCl 1, 1560 1690 000 ml @ 130 mls/hr IV . Q7H42M [facility] Rx#:[id number] Intake, IV Titration 544.344 751.967 85.951 Amount Midazolam HCl 50 mg In 44.500 51.967 Sodium Chloride 0.9% 40 ml @ 10 MG/HR 10 mls/hr IV .Q5H [facility] Rx#:[id number] Piperacillin-Tazobactam 3 100 .375 gm In Sodium Chloride 0.9% 100 ml @ 25 mls/hr IVPB Q8H [facility] Rx#: [id number] Sodium Chloride 0.9% 80 99.844 100 85.951 ml @ 1 MCG/KG/HR 9.16 mls /hr IV .[id number] [facility] with fentaNYL (PF) 1,000 mcg Rx#:[id number] propofoL 1,000 mg In 400.000 500.000 Empty Bag 1 bag @ 15 MCG/ KG/MIN 10.206 mls/hr IV . Q9H48M [facility] Rx#:[id number] Tube Feeding 360 240 Other 90 90 Output: Urine 610 1830 Other: Voiding Method Indwelling Catheter Indwelling Catheter ABP, PAP, CO, CI - Last Documented Arterial Blood Pressure 110/50 - Exam -GENERAL: The patient is intubated and sedated HEENT: Pupils are round and equally reacting to light. EOMI. No scleral icterus. No conjunctival pallor. Normocephalic, atraumatic. No pharyngeal erythema. No thyromegaly. CARDIOVASCULAR: S1 and S2 present. No murmurs, rubs, or gallops. PULMONARY: Chest is clear to auscultation, no wheezing , no crackles. ABDOMEN: Soft, nontender, nondistended, normoactive bowel sounds. No palpable organomegaly. MUSCULOSKELETAL: No joint swelling or deformity. EXTREMITIES: No cyanosis, clubbing, or pedal edema. NEUROLOGICAL: Gross neurological examination did not reveal any focal deficits. SKIN: No rashes. no petechiae. - Labs CBC & Chem 7: 08/31/23 05:10 08/31/23 05:10 Labs: Abnormal Lab Results - Last 24 Hours (Table) 08/31/23 08/31/23 08/31/23 Range/Units 05:10 05:10 06:28 RBC 3.78 L (4.30-5.90) m/uL Hgb 10.9 L (13.0-17.5) gm/dL Hct 32.2 L (39.0-53.0) % Plt Count 125 L (150-450) k/uL ABG pO2 75 L (83-108) mmHg ABG Total CO2 27 H (19-24) mmol/L Sodium 136 L (137-145) mmol/L Potassium 3.4 L (3.5-5.1) mmol/L BUN 7 L (9-20) mg/dL Calcium 8.0 L (8.4-10.2) mg/dL Microbiology - Last 24 Hours (Table) 08/28/23 16:25 Gram Stain - Preliminary Sputum Sputum Culture - Preliminary Assessment and Plan Assessment: Right lower lobe pneumonia Metabolic/toxic encephalopathy. Altered mental status due to drug overdose and alcohol intoxication. Currently intubated and on mechanical ventilator for airway protection. Acute alcohol intoxication Polysubstance use with UDS positive for amphetamines, methamphetamines, cocaine and marijuana. Inability to protect airway requiring intubation and mechanical ventilation Lactic acidosis on admission. Improved Hepatitis C. Treatment history not known. Severe alcohol abuse Depression with prior history of suicide attempt Schizoaffective disorder Chronic back pain Currently everyday smoker Plan: Start Zosyn Patient continue with mechanical ventilation with pulmonary/Care team helping with his vent management. Continue with subcutaneous as per management of critical care team, he received Nimbex, propofol, fentanyl and Medozalam drip Labs and medication were reviewed.. Continue same treatment. Continue with symptomatic treatment. Resume home medication. Monitor labs and vitals. DVT and GI prophylaxis. Further recommendations as per clinical course of the patient DVT prophylaxis: Subcutaneous heparin GI Prophylaxis: Ppi PT/OT: Pending Prognosis is guarded
--- NOTE | 2023-08-31 13:15 | P.PN ---
Subjective Progress Note Date: 08/31/23 Principal diagnosis: Multiple drugs overdose I am seeing this patient in new consultation today 08/29/2023 in the intensive care unit after the patient was found unresponsive outside of the hospital, and intubated for airway protection in the emergency room. Patient is a 37-year-old white male with past medical history significant for polysubstance abuse and prior overdoses requiring intubation, history of depression and suicidal attempts, schizoaffective disorder, hepatitis C, and alcohol abuse. Patient is currently intubated mechanical ventilator and unable to provide any information. Patient had a recent ICU admission back in Mar, 2023 for lithium overdose. He has since been taken off lithium. Patient was brought to the emergency room by EMS yesterday afternoon. Apparently, he was found on the side of a [facility]. He was unresponsive. He was given multiple doses of Narcan without much improvement. When he arrived to the emergency room, he was intubated by the ER physician. Postintubation chest x-ray shows the endotracheal tube approximately 5.4 cm from the catherine. There was an orogastric tube coursing below the diaphragm. No focal infiltrates or evidence of pneumonia. CT of the brain and C-spine without contrast showed no acute intracranial process. No evidence of C-spine fracture. Patient was admitted to the intensive care unit. He is curr ently intubated to the mechanical ventilator and synchronous. He is sedated on propofol which is currently infusing at 50 mcg/kg/m. Current ventilator settings include assist control, respiratory 14, tidal volume 500, FiO2 40%, and PEEP of 5. Postintubation ABG shows a pO2 greater than 400, pCO2 36, pH of 7.41. CBC on admission was unremarkable. Most recent CMP shows a sodium 145, potassium 3.8, chloride 111, serum bicarb 22, BUN 8, creatinine 0.72, glucose 101. Lactic acid level was elevated, and is down to 2.3. LFTs nonelevated. Troponin less than 0.012. Urine tox screen was positive for amphetamines, methamphetamines, cocaine, and marijuana. Patient was also intoxicated on arriv al with a serum alcohol level 472. Patient has been started on the CIWA protocol. Blood pressure is normotensive. Not requiring any vasopressors. There is an indwelling urinary catheter, urine output is adequate. He will be monitored in the intensive care unit. Patient was evaluated today on 08/30/2023, remains in the ICU, intubated and mechanically ventilated. He is on assist control rate of 14 tidal volume 500 FiO2 40% and EPAP of 5 he was on 50% earlier and his ABG showed a pO2 of 120 pCO2 45 pH of 7.37. Hence FiO2 was cut down to 40%. Patient remains quite sedated, requiring significant amount of sedation mostly because yesterday he became extremely agitated and could not ventilate the patient properly without using multiple medications to keep him sedated and relaxed in order to ventilator properly. Patient did receive Nimbex intermittently that I changed him to fentanyl at 20 mcg/kg/m also had to use versed at 9 mg per hour, and I had to increase the propofol as high as 75 mcg/kg/m. It took that much medication to keep him calm and to make him synchronous with the ventilator otherwise the patient was going wild and extremely agitated, thrashing in bed, and was about to pull his tubes and lines. Patient is now on fentanyl at 20 mcg/kg/h and Versed and 50 mg per hour and I'm cutting it down further is also on propofol at 60 mcg/kg/m receiving vital H before nutritional support at 50 mL per hour via orogastric tube. Today I plan to cut down his propofol to 50 fentanyl down to 0.5 and I'm hoping I could discontinue his Versed. WBC count is 11.2 hemoglobin is 11.1 electrolytes are normal renal profile is normal chest x-ray is showing left lower lobe atelectasis and small left pleural effusion doubt pneumonia. Reevaluated today on 08/31/2023, patient remains in the ICU intubated and mechanically ventilated. Patient is still requiring significant amount of sedation otherwise the patient desaturates and could not ventilate the patient on lower doses of sedation. Yesterday attempts were made to cut down the Versed, but that could not be done, later in the afternoon the patient became extremely agitated, asynchronous with the ventilator, desaturated down to the 70s, and had to be placed back on Versed. He is now on assist control rate of 14 tidal volume 500 FiO2 40% with a PEEP of 5 ABG showed a pO2 of 75 pCO2 43 pH of 7.38 patient remains on IV fluid at 130 mL per hour is on propofol at 60 mcg/kg/m Versed at 5 mg per hour fentanyl 1 mcg/kg/h. Obviously considering his significant sedation requirement, patient is not ready for any form of weaning however I will try to hopefully cut down the propofol to 50 pg/kg/m and hopefully going on on the Versed and bit more. Chest x-ray is showing interval development of right lower lobe infiltrate and small effusion with a left-sided consolidation and left pleural effusion hence the patient was placed on Zosyn empirically. And the patient will receive a dose of Lasix 20 mg IV push WBC count is 9.3 hemoglobin is 10.9 basic metabolic profile is normal, renal profile is normal Objective - Vital Signs Vital signs: Vital Signs Temp 98.7 F 08/31/23 12:00 Pulse 67 08/31/23 13:00 Resp 14 08/31/23 13:00 BP 101/56 08/31/23 13:00 Pulse Ox 98 08/31/23 13:00 FiO2 40 08/31/23 12:00 Intake & Output 08/30/23 08/31/23 08/31/23 18:59 06:59 18:59 Intake Total 2554.344 2771.967 1492.327 Output Total 610 1830 885 Balance 1944.344 941.967 607.327 Weight 97.8 kg 97.8 kg Intake: IV 1560 1690 130 Dextrose 5%-0.45% NaCl 1, 1560 1690 130 000 ml @ 130 mls/hr IV . Q7H42M [facility] Rx#:[id number] Intake, IV Titration 544.344 579.583 5453.327 Amount Midazolam HCl 50 mg In 44.500 51.967 45.100 Sodium Chloride 0.9% 40 ml @ 10 MG/HR 10 mls/hr IV .Q5H [facility] Rx#:[id number] Piperacillin-Tazobactam 3 100 100 .375 gm In Sodium Chloride 0.9% 100 ml @ 25 mls/hr IVPB Q8H [facility] Rx#: [id number] Sodium Chloride 0.9% 1, 650 000 ml @ 130 mls/hr IV . Q7H42M [facility] Rx#:[id number] Sodium Chloride 0.9% 80 99.844 100 85.951 ml @ 1 MCG/KG/HR 9.16 mls /hr IV .[id number] [facility] with fentaNYL (PF) 1,000 mcg Rx#:[id number] propofoL 1,000 mg In 400.000 500.000 141.276 Empty Bag 1 bag @ 15 MCG/ KG/MIN 10.206 mls/hr IV . Q9H48M [facility] Rx#:[id number] Tube Feeding 360 240 200 Other 90 90 140 Output: Urine 610 1830 885 Other: Voiding Method Indwelling Catheter Indwelling Catheter Indwelling Catheter ABP, PAP, CO, CI - Last Documented Arterial Blood Pressure 103/53 - Exam GENERAL EXAM: 57-year-old white male intubated, mechanically ventilated, sedated again requiring significant amount of sedation as noted earlier HEAD: Normocephalic and atraumatic, endotracheal tube and orogastric tube are intact EYES: Normal reaction of pupils, equal size. NOSE: Clear with pink turbinates. THROAT: No erythema or exudates. NECK: No masses, no JVD. CHEST: No chest wall deformity. LUNGS: Minimal crackles at the bases no rhonchi and no wheezes CVS: S1 and S2 normal with no audible murmur, regular rhythm. No extra heart sounds ABDOMEN: No hepatosplenomegaly, active bowel sounds, no guarding or rigidity. SPINE: No scoliosis or deformity SKIN: No rashes CENTRAL NERVOUS SYSTEM: Patient is sedated, , on multiple drips as noted earlier, could not assess EXTREMITIES: There is no peripheral edema, clubbing, or cyanosis. Peripheral pulses are intact. - Labs CBC & Chem 7: 08/31/23 05:10 08/31/23 05:10 Labs: Abnormal Lab Results - Last 24 Hours (Table) 08/31/23 08/31/23 08/31/23 Range/Units 05:10 05:10 06:28 RBC 3.78 L (4.30-5.90) m/uL Hgb 10.9 L (13.0-17.5) gm/dL Hct 32.2 L (39.0-53.0) % Plt Count 125 L (150-450) k/uL ABG pO2 75 L (83-108) mmHg ABG Total CO2 27 H (19-24) mmol/L Sodium 136 L (137-145) mmol/L Potassium 3.4 L (3.5-5.1) mmol/L BUN 7 L (9-20) mg/dL Calcium 8.0 L (8.4-10.2) mg/dL Microbiology - Last 24 Hours (Table) 08/28/23 16:25 Gram Stain - Final Sputum Sputum Culture - Final Assessment and Plan Assessment: Impression: Altered mental status secondary to multiple drugs overdose required intubation and mechanical ventilation to protect his airways Acute multiple drugs overdose and acute alcohol intoxication Acute alcohol intoxication Polysubstance abuse History of depression and previous suicidal attempts Schizoaffective disorder History of hepatitis C Tobacco dependence syndrome Recommendation: Continue ventilatory support Continue sedation , attempts to cut down on the MR of sedation if possible Continue GI and DVT prophylaxis Continue nutritional support Continue Zosyn Decrease IV fluid to 75 mL per hour Gentle diuresis Continue daily labs Daily chest x-rays Daily assessment of mental status on lower dose or off sedation if possible Prognosis is guarded Patient is critically ill Not ready for any form of weaning at this point. We will continue to follow Critical care time is over 30 Time with Patient: Greater than 30
[2023-08-31] MEDS ORDERED: FUROSEMIDE 10 MG/ML 2 ML VIAL IV ONE (13:30)
[2023-08-31 17:54] LABS: Glucose,Whole Blood 120 mg/dL (70-110)
[2023-08-31 23:48] LABS: Glucose,Whole Blood 88 mg/dL (70-110)
[2023-09-01] MEDS: LORazepam 2 MG/ML INJ IV PRN ×3 (01:31→23:28)
[2023-09-01] MEDS: HEPARIN SODIUM,PORCINE 5,000 UNIT/ML 1 ML VIAL SQ SCH ×3 (01:31→15:54)
[2023-09-01] MEDS: INSULIN ASPART (NovoLOG) 100 UNIT/ML VIAL SQ SCH ×4 (01:31→17:36)
[2023-09-01] MEDS: MIDAZOLAM HCL 50 MG in SODIUM CHLORIDE 0.9% 40 ML IV SCH ×5 (01:46→19:07)
[2023-09-01] MEDS: PIPERACILLIN-TAZOBACTAM 3.375 GM in SODIUM CHLORIDE 0.9% 100 ML IVPB SCH ×3 (03:50→19:05)
[2023-09-01] MEDS: DEXMEDETOMIDINE/0.9% NACL(PMX) 400 MCG in EMPTY BAG 1 BAG IV SCH (03:51)
[2023-09-01 04:34] LABS: Glucose,Whole Blood 113 mg/dL (70-110)
[2023-09-01 05:13] LABS: Basophils % (A) 0 %; Eosinophils # (A) 0.4 k/uL (0-0.7); Eosinophils % (A) 5 %; HCT 29.7 % (39.0-53.0); HGB 9.8 gm/dL (13.0-17.5); Lymphocytes % (A) 13 %; MCH 28.2 pg (25.0-35.0); MCV 85.4 fL (80.0-100.0); Monocytes # (A) 0.3 k/uL (0-1.0); Monocytes % (A) 5 %; Neutrophils # (A) 5.4 k/uL (1.3-7.7); Neutrophils % (A) 75 %; Platelet Count 121 k/uL (150-450); RBC 3.48 m/uL (4.30-5.90); RDW 13.4 % (11.5-15.5); WBC 7.1 k/uL (3.8-10.6)
[2023-09-01 05:38] LABS: African American GFR (CKD) >90 (>60 ml/min/1.73 sqM); Anion Gap 7 mmol/L; Blood Urea Nitrogen 10 mg/dL (9-20); Calcium 7.9 mg/dL (8.4-10.2); Carbon Dioxide 25 mmol/L (22-30); Chloride 106 mmol/L (98-107); Glucose 106 mg/dL (74-99); Non-African American GFR(CKD) >90 (>60 ml/min/1.73 sqM); Potassium 3.4 mmol/L (3.5-5.1); Sodium 138 mmol/L (137-145)
[2023-09-01 06:29] LABS: ABG Base Excess 3.8 mmol/L; ABG HCO3 29 mmol/L (21-25); ABG Oxygen Saturation 97.1 % (94-97); ABG PCO2 47 mmHg (35-45); ABG PH 7.39 (7.35-7.45); ABG PO2 83 mmHg (83-108); ABG TCO2 30 mmol/L (19-24); Allen Test Performed? Yes
[2023-09-01] MEDS: POTASSIUM CHLORIDE 10 MEQ in WATER FOR INJECTION 1 100ML.BAG IVPB SCH ×6 (06:49→23:29)
[2023-09-01] MEDS: SODIUM CHLORIDE 0.9% 80 ML with fentaNYL (PF) 1,000 MCG IV SCH ×4 (06:49→10:08)
[2023-09-01] MEDS: THIAMINE 100 MG/ML 2 ML VIAL IVP SCH (08:32)
[2023-09-01] MEDS: PANTOPRAZOLE 40 MG/10 ML VIAL IV SCH (08:32)
[2023-09-01] MEDS: CHLORHEXIDINE GLUCONATE 15 ML CUP MUCOUS MEM SCH ×2 (08:32→19:51)
--- NOTE | 2023-09-01 08:35 | XR ---
EXAMINATION TYPE: XR chest 1V portable DATE OF EXAM: 09/01/2023 COMPARISON: 08/31/2023 HISTORY: Shortness of breath TECHNIQUE: Single frontal view of the chest is obtained. FINDINGS: ET and NG tube appear in similar position ET tube approximately 4 cm above the catherine. NG tube appears coiled overlying the left upper abdomen likely in the gastric body. Stable left-sided co nsolidation and pleural effusion. There is stable right lower lobe consolidation and small pleural ef fusion.. Heart size is stable. No sizable pneumothorax. IMPRESSION: Bilateral lower lobe consolidation and small effusion stable.
--- NOTE | 2023-09-01 09:03 | P.PN ---
Subjective Patient is a 37-year-old male with a past medical history of hypertension, GERD, polysubstance abuse, hepatitis C, chronic back pain, currently everyday smoker and alcohol abuse was brought to the hospital by EMS as he was found unconscious at the [facility]. Patient was given Narcan intranasal x2 without much improvement. Patient was brought to the ER. Patient was intubated for airway protection. Currently sedated. Patient had previous admission to MICU due to drug overdose with lithium. Chest x-ray showed no acute cardiopulmonary process. Support tubes in appropriate position. EKG showed sinus rhythm. CT of the head and cervical spine showed no acute intracranial process. No evidence of cervical spine fracture. Support Endo tracheal tube in appropriate position. Laboratory data showed WBC 8.4 hemoglobin 15.3 and platelets 247 Sodium 136 potassium 3.8 chloride 97 bicarb is 22 BUN 13 and creatinine 0.94 and lactic acid 2.8 AST 60 ALT 28 and alk phos 52 troponin x1 negative. Urinalysis is UDS is positive for amphetamines, methamphetamines, cocaine and marijuana. Serum alcohol level is 472. 08/31/2023 patient remains intubated to protect his airway on mechanical ventilation. His FiO2 is 40% and PEEP is 5. Patient still requiring sedatives and he got extubated easily and hypoxic on to try to taper him down. Currently he is on midazolam 5 mg/h and propofol 50 g per hour. Also he is in restraints. Repeat chest x-ray this morning shows right lower lobe infiltrate suspicious for sebaceous pneumonia patient was started on Zosyn 09/05/2023 Patient remains in the ICU intubated and sedated. The/critical care team helping with his management of the ventilator Patient still confused and he got agitated. He is still receiving sedatives as we are trying to taper them down with me does along down to 4 units and propofol.45. He remains on Zosyn for pneumonia. Blood pressure is borderline and but he does not he needs pressors and is making good urine output. He is also on normal saline at 75 mL/h Objective - Vital Signs Vital signs: Vital Signs Temp 99.2 F 09/01/23 04:00 Pulse 68 09/01/23 06:00 Resp 15 09/01/23 06:00 BP 97/53 09/01/23 06:00 Pulse Ox 97 09/01/23 06:00 FiO2 40 09/01/23 04:00 Intake & Output 08/31/23 09/01/23 09/01/23 18:59 06:59 18:59 Intake Total 2356.051 2118.455 54.641 Output Total 2695 660 Balance -560.103 1154.455 54.641 Weight 97.8 kg 96.8 kg Intake: IV 130 600 Dextrose 5%-0.45% NaCl 1, 130 000 ml @ 130 mls/hr IV . Q7H42M [facility] Rx#:[id number] Sodium Chloride 0.9% 1, 600 000 ml @ 75 mls/hr IV . [id number] [facility] Rx#:[id number] Intake, IV Titration 1656.051 792.455 54.641 Amount Midazolam HCl 50 mg In 45.100 50 Sodium Chloride 0.9% 40 ml @ 10 MG/HR 10 mls/hr IV .Q5H [facility] Rx#:[id number] Piperacillin-Tazobactam 3 100 .375 gm In Sodium Chloride 0.9% 100 ml @ 25 mls/hr IVPB Q8H [facility] Rx#: [id number] Sodium Chloride 0.9% 1, 1025 300 000 ml @ 75 mls/hr IV . Q88C04M [facility] Rx#:[id number] Sodium Chloride 0.9% 80 185.951 97.096 ml @ 1 MCG/KG/HR 9.16 mls /hr IV .[id number] [facility] with fentaNYL (PF) 1,000 mcg Rx#:[id number] propofoL 1,000 mg In 300.000 345.359 54.641 Empty Bag 1 bag @ 15 MCG/ KG/MIN 10.206 mls/hr IV . Q9H48M [facility] Rx#:[id number] Tube Feeding 400 636 Other 170 90 Output: Urine 2695 660 Other: Voiding Method Indwelling Catheter Indwelling Catheter ABP, PAP, CO, CI - Last Documented Arterial Blood Pressure 87/42 - Exam -GENERAL: The patient is intubated and sedated HEENT: Pupils are round and equally reacting to light. EOMI. No scleral icterus. No conjunctival pallor. Normocephalic, atraumatic. No pharyngeal erythema. No thyromegaly. CARDIOVASCULAR: S1 and S2 present. No murmurs, rubs, or gallops. PULMONARY: Chest is clear to auscultation, no wheezing , no crackles. ABDOMEN: Soft, nontender, nondistended, normoactive bowel sounds. No palpable organomegaly. MUSCULOSKELETAL: No joint swelling or deformity. EXTREMITIES: No cyanosis, clubbing, or pedal edema. NEUROLOGICAL: Gross neurological examination did not reveal any focal deficits. SKIN: No rashes. no petechiae. - Labs CBC & Chem 7: 09/01/23 04:30 09/01/23 04:30 Labs: Abnormal Lab Results - Last 24 Hours (Table) 08/31/23 08/31/23 09/01/23 Range/Units 17:52 18:41 04:30 RBC 3.48 L (4.30-5.90) m/uL Hgb 9.8 L (13.0-17.5) gm/dL Hct 29.7 L (39.0-53.0) % Plt Count 121 L (150-450) k/uL ABG pCO2 (35-45) mmHg ABG HCO3 (21-25) mmol/L ABG Total CO2 (19-24) mmol/L ABG O2 Saturation (94-97) % Potassium 3.3 L (3.5-5.1) mmol/L Creatinine (0.66-1.25) mg/dL Glucose (74-99) mg/dL POC Glucose (mg/dL) 120 H (70-110) mg/dL Calcium (8.4-10.2) mg/dL 09/01/23 09/01/23 09/01/23 Range/Units 04:30 04:32 06:24 RBC (4.30-5.90) m/uL Hgb (13.0-17.5) gm/dL Hct (39.0-53.0) % Plt Count (150-450) k/uL ABG pCO2 47 H (35-45) mmHg ABG HCO3 29 H (21-25) mmol/L ABG Total CO2 30 H (19-24) mmol/L ABG O2 Saturation 97.1 H (94-97) % Potassium 3.4 L (3.5-5.1) mmol/L Creatinine 0.60 L (0.66-1.25) mg/dL Glucose 106 H (74-99) mg/dL POC Glucose (mg/dL) 113 H (70-110) mg/dL Calcium 7.9 L (8.4-10.2) mg/dL Microbiology - Last 24 Hours (Table) 08/28/23 16:25 Gram Stain - Final Sputum Sputum Culture - Final Assessment and Plan Assessment: Right lower lobe pneumonia Metabolic/toxic encephalopathy. Altered mental status due to drug overdose and alcohol intoxication. Currently intubated and on mechanical ventilator for airway protection. Acute alcohol intoxication Polysubstance use with UDS positive for amphetamines, methamphetamines, cocaine and marijuana. Inability to protect airway requiring intubation and mechanical ventilation Lactic acidosis on admission. Improved Hepatitis C. Treatment history not known. Severe alcohol abuse Depression with prior history of suicide attempt Schizoaffective disorder Chronic back pain Currently everyday smoker Plan: Start Zosyn Patient continue with mechanical ventilation with pulmonary/Care team helping with his vent management. Continue with subcutaneous as per management of critical care team, he received Nimbex, propofol, fentanyl and Medozalam drip Labs and medication were reviewed.. Continue same treatment. Continue with symptomatic treatment. Resume home medication. Monitor labs and vitals. DVT and GI prophylaxis. Further recommendations as per clinical course of the patient DVT prophylaxis: Subcutaneous heparin GI Prophylaxis: Ppi PT/OT: Pending Prognosis is guarded
[2023-09-01] MEDS: SODIUM CHLORIDE 0.9% 1,000 ML IV SCH (09:47)
[2023-09-01 12:05] LABS: Glucose,Whole Blood 97 mg/dL (70-110)
--- NOTE | 2023-09-01 14:45 | P.PN ---
Subjective Progress Note Date: 09/01/23 Principal diagnosis: Multiple drugs overdose I am seeing this patient in new consultation today 08/29/2023 in the intensive care unit after the patient was found unresponsive outside of the hospital, and intubated for airway protection in the emergency room. Patient is a 37-year-old white male with past medical history significant for polysubstance abuse and prior overdoses requiring intubation, history of depression and suicidal attempts, schizoaffective disorder, hepatitis C, and alcohol abuse. Patient is currently intubated mechanical ventilator and unable to provide any information. Patient had a recent ICU admission back in Mar, 2023 for lithium overdose. He has since been taken off lithium. Patient was brought to the emergency room by EMS yesterday afternoon. Apparently, he was found on the side of a latter day. He was unresponsive. He was given multiple doses of Narcan without much improvement. When he arrived to the emergency room, he was intubated by the ER physician. Postintubation chest x-ray shows the endotracheal tube approximately 5.4 cm from the catherine. There was an orogastric tube coursing below the diaphragm. No focal infiltrates or evidence of pneumonia. CT of the brain and C-spine without contrast showed no acute intracranial process. No evidence of C-spine fracture. Patient was admitted to the intensive care unit. He is curr ently intubated to the mechanical ventilator and synchronous. He is sedated on propofol which is currently infusing at 50 mcg/kg/m. Current ventilator settings include assist control, respiratory 14, tidal volume 500, FiO2 40%, and PEEP of 5. Postintubation ABG shows a pO2 greater than 400, pCO2 36, pH of 7.41. CBC on admission was unremarkable. Most recent CMP shows a sodium 145, potassium 3.8, chloride 111, serum bicarb 22, BUN 8, creatinine 0.72, glucose 101. Lactic acid level was elevated, and is down to 2.3. LFTs nonelevated. Troponin less than 0.012. Urine tox screen was positive for amphetamines, methamphetamines, cocaine, and marijuana. Patient was also intoxicated on arriv al with a serum alcohol level 472. Patient has been started on the CIWA protocol. Blood pressure is normotensive. Not requiring any vasopressors. There is an indwelling urinary catheter, urine output is adequate. He will be monitored in the intensive care unit. Patient was evaluated today on 08/30/2023, remains in the ICU, intubated and mechanically ventilated. He is on assist control rate of 14 tidal volume 500 FiO2 40% and EPAP of 5 he was on 50% earlier and his ABG showed a pO2 of 120 pCO2 45 pH of 7.37. Hence FiO2 was cut down to 40%. Patient remains quite sedated, requiring significant amount of sedation mostly because yesterday he became extremely agitated and could not ventilate the patient properly without using multiple medications to keep him sedated and relaxed in order to ventilator properly. Patient did receive Nimbex intermittently that I changed him to fentanyl at 20 mcg/kg/m also had to use versed at 9 mg per hour, and I had to increase the propofol as high as 75 mcg/kg/m. It took that much medication to keep him calm and to make him synchronous with the ventilator otherwise the patient was going wild and extremely agitated, thrashing in bed, and was about to pull his tubes and lines. Patient is now on fentanyl at 20 mcg/kg/h and Versed and 50 mg per hour and I'm cutting it down further is also on propofol at 60 mcg/kg/m receiving vital H before nutritional support at 50 mL per hour via orogastric tube. Today I plan to cut down his propofol to 50 fentanyl down to 0.5 and I'm hoping I could discontinue his Versed. WBC count is 11.2 hemoglobin is 11.1 electrolytes are normal renal profile is normal chest x-ray is showing left lower lobe atelectasis and small left pleural effusion doubt pneumonia. Reevaluated today on 08/31/2023, patient remains in the ICU intubated and mechanically ventilated. Patient is still requiring significant amount of sedation otherwise the patient desaturates and could not ventilate the patient on lower doses of sedation. Yesterday attempts were made to cut down the Versed, but that could not be done, later in the afternoon the patient became extremely agitated, asynchronous with the ventilator, desaturated down to the 70s, and had to be placed back on Versed. He is now on assist control rate of 14 tidal volume 500 FiO2 40% with a PEEP of 5 ABG showed a pO2 of 75 pCO2 43 pH of 7.38 patient remains on IV fluid at 130 mL per hour is on propofol at 60 mcg/kg/m Versed at 5 mg per hour fentanyl 1 mcg/kg/h. Obviously considering his significant sedation requirement, patient is not ready for any form of weaning however I will try to hopefully cut down the propofol to 50 pg/kg/m and hopefully going on on the Versed and bit more. Chest x-ray is showing interval development of right lower lobe infiltrate and small effusion with a left-sided consolidation and left pleural effusion hence the patient was placed on Zosyn empirically. And the patient will receive a dose of Lasix 20 mg IV push WBC count is 9.3 hemoglobin is 10.9 basic metabolic profile is normal, renal profile is normal Reevaluated today 09/01/2023, patient remains in the ICU, intubated and mechanically ventilated. Patient is on assist control rate of 14 tidal volume 500 FiO2 40% and PEEP of 5 ABG showed a pO2 of 83 pCO2 47 pH of 7.39. Patient is still requiring significant amount of sedation otherwise he goes wild and condoms asynchronous with the ventilator. He is now on Versed at 3 mg/h fentanyl at 0.5 mcg/kg/h propofol 45 mcg/kg/m and he is on vital HP at 59 mL per hour. Chest x-ray is suspicious for left lower lobe atelectasis/possible pneumonia and endotracheal tube was noted to be a bit proximal it will be adva suri about to see him down. CBC is relatively normal WBC count 7.1 hemoglobin is 9.8 electrolytes are normal, renal profile is normal, sputum cultures are nondiagnostic showing mostly normal respiratory deisi Objective - Vital Signs Vital signs: Vital Signs Temp 98.6 F 09/01/23 12:00 Pulse 66 09/01/23 14:00 Resp 15 09/01/23 14:00 BP 111/59 09/01/23 14:00 Pulse Ox 96 09/01/23 14:00 FiO2 40 09/01/23 14:03 Intake & Output 08/31/23 09/01/23 09/01/23 18:59 06:59 18:59 Intake Total 2356.051 2118.455 1750.163 Output Total 2695 660 815 Balance -912.957 4471.455 935.163 Weight 97.8 kg 96.8 kg 96.8 kg Intake: IV 061 728 2171 Dextrose 5%-0.45% NaCl 1, 130 000 ml @ 130 mls/hr IV . Q7H42M [facility] Rx#:[id number] Piperacillin-Tazobactam 3 100 .375 gm In Sodium Chloride 0.9% 100 ml @ 25 mls/hr IVPB Q8H [facility] Rx#: [id number] Potassium Chloride 10 meq 400 In Water For Injection 1 100ml.bag @ 100 mls/hr IVPB Q1H [facility] Rx#: [id number] Pressure bag 21 Sodium Chloride 0.9% 1, 600 525 000 ml @ 75 mls/hr IV . [id number] [facility] Rx#:[id number] Intake, IV Titration 1656.051 792.455 231.163 Amount Midazolam HCl 50 mg In 45.100 50 37.967 Sodium Chloride 0.9% 40 ml @ 10 MG/HR 10 mls/hr IV .Q5H [facility] Rx#:[id number] Piperacillin-Tazobactam 3 100 .375 gm In Sodium Chloride 0.9% 100 ml @ 25 mls/hr IVPB Q8H [facility] Rx#: [id number] Sodium Chloride 0.9% 1, 1025 300 000 ml @ 75 mls/hr IV . [id number] [facility] Rx#:[id number] Sodium Chloride 0.9% 80 185.951 97.096 ml @ 1 MCG/KG/HR 9.16 mls /hr IV .[id number] [facility] with fentaNYL (PF) 1,000 mcg Rx#:[id number] propofoL 1,000 mg In 300.000 345.359 193.196 Empty Bag 1 bag @ 15 MCG/ KG/MIN 10.206 mls/hr IV . Q9H48M [facility] Rx#:[id number] Tube Feeding 400 636 413 Other 170 90 60 Output: Urine 2695 660 815 Other: Voiding Method Indwelling Catheter Indwelling Catheter Indwelling Catheter ABP, PAP, CO, CI - Last Documented Arterial Blood Pressure 121/49 - Exam GENERAL EXAM: 57-year-old white male intubated, mechanically ventilated HEAD: Normocephalic and atraumatic, endotracheal tube and orogastric tube are intact EYES: Normal reaction of pupils, equal size. NOSE: Clear with pink turbinates. THROAT: No erythema or exudates. NECK: No masses, no JVD. CHEST: No chest wall deformity. LUNGS: Diminished breath sound the bases no crackles or rhonchi or wheezes CVS: S1 and S2 normal with no audible murmur, regular rhythm. No extra heart sounds ABDOMEN: No hepatosplenomegaly, active bowel sounds, no guarding or rigidity. SPINE: No scoliosis or deformity SKIN: No rashes CENTRAL NERVOUS SYSTEM: Patient is sedated, , on multiple drips as noted earlier, could not assess EXTREMITIES: There is no peripheral edema, clubbing, or cyanosis. Peripheral pulses are intact. - Labs CBC & Chem 7: 09/01/23 04:30 09/01/23 04:30 Labs: Abnormal Lab Results - Last 24 Hours (Table) 08/31/23 08/31/23 09/01/23 Range/Units 17:52 18:41 04:30 RBC 3.48 L (4.30-5.90) m/uL Hgb 9.8 L (13.0-17.5) gm/dL Hct 29.7 L (39.0-53.0) % Plt Count 121 L (150-450) k/uL ABG pCO2 (35-45) mmHg ABG HCO3 (21-25) mmol/L ABG Total CO2 (19-24) mmol/L ABG O2 Saturation (94-97) % Potassium 3.3 L (3.5-5.1) mmol/L Creatinine (0.66-1.25) mg/dL Glucose (74-99) mg/dL POC Glucose (mg/dL) 120 H (70-110) mg/dL Calcium (8.4-10.2) mg/dL 09/01/23 09/01/23 09/01/23 Range/Units 04:30 04:32 06:24 RBC (4.30-5.90) m/uL Hgb (13.0-17.5) gm/dL Hct (39.0-53.0) % Plt Count (150-450) k/uL ABG pCO2 47 H (35-45) mmHg ABG HCO3 29 H (21-25) mmol/L ABG Total CO2 30 H (19-24) mmol/L ABG O2 Saturation 97.1 H (94-97) % Potassium 3.4 L (3.5-5.1) mmol/L Creatinine 0.60 L (0.66-1.25) mg/dL Glucose 106 H (74-99) mg/dL POC Glucose (mg/dL) 113 H (70-110) mg/dL Calcium 7.9 L (8.4-10.2) mg/dL Assessment and Plan Assessment: Impression: Altered mental status secondary to multiple drugs overdose required intubation and mechanical ventilation to protect his airways Acute multiple drugs overdose and acute alcohol intoxication Acute alcohol intoxication Polysubstance abuse History of depression and previous suicidal attempts Schizoaffective disorder History of hepatitis C Tobacco dependence syndrome Recommendation: Continue ventilatory support Continue sedation , continue further weaning on the amount of sedation Continue GI and DVT prophylaxis Continue nutritional support Continue Zosyn Decrease IV fluid to 75 mL per hour Gentle diuresis Continue daily labs Daily chest x-rays Will likely start sedation interruption in the next 24 hours to assess mental status and address weaning if possible Prognosis is guarded Patient is critically ill Not ready for any form of weaning at this point. We will continue to follow Critical care time is over 30 Time with Patient: Greater than 30
[2023-09-01 17:29] LABS: Glucose,Whole Blood 124 mg/dL (70-110)
[2023-09-01 23:54] LABS: Glucose,Whole Blood 118 mg/dL (70-110)
[2023-09-02] MEDS: HEPARIN SODIUM,PORCINE 5,000 UNIT/ML 1 ML VIAL SQ SCH ×3 (00:37→15:49)
[2023-09-02] MEDS: INSULIN ASPART (NovoLOG) 100 UNIT/ML VIAL SQ SCH ×4 (00:37→18:11)
[2023-09-02] MEDS: SODIUM CHLORIDE 0.9% 1,000 ML IV SCH ×3 (00:38→15:48)
[2023-09-02] MEDS: SODIUM CHLORIDE 0.9% 80 ML with fentaNYL (PF) 1,000 MCG IV SCH ×6 (03:00→18:58)
[2023-09-02] MEDS: DEXMEDETOMIDINE/0.9% NACL(PMX) 400 MCG in EMPTY BAG 1 BAG IV SCH ×3 (03:50→20:50)
[2023-09-02] MEDS: MIDAZOLAM HCL 50 MG in SODIUM CHLORIDE 0.9% 40 ML IV SCH ×5 (03:50→20:12)
[2023-09-02 03:53] LABS: Basophils % (A) 0 %; Eosinophils # (A) 0.4 k/uL (0-0.7); Eosinophils % (A) 5 %; HCT 30.1 % (39.0-53.0); Lymphocytes # (A) 1.2 k/uL (1.0-4.8); Lymphocytes % (A) 18 %; MCH 28.5 pg (25.0-35.0); MCHC 33.3 g/dL (31.0-37.0); MCV 85.6 fL (80.0-100.0); Mean Platelet Volume 10.1; Monocytes # (A) 0.4 k/uL (0-1.0); Monocytes % (A) 6 %; Neutrophils # (A) 4.3 k/uL (1.3-7.7); Neutrophils % (A) 68 %; Platelet Count 140 k/uL (150-450); RBC 3.51 m/uL (4.30-5.90); RDW 13.2 % (11.5-15.5); WBC 6.4 k/uL (3.8-10.6)
[2023-09-02] MEDS: PIPERACILLIN-TAZOBACTAM 3.375 GM in SODIUM CHLORIDE 0.9% 100 ML IVPB SCH ×3 (04:14→18:35)
[2023-09-02 04:32] LABS: ALT 14 U/L (4-49); AST 31 U/L (17-59); African American GFR (CKD) >90 (>60 ml/min/1.73 sqM); Albumin 2.3 g/dL (3.5-5.0); Alkaline Phosphatase 52 U/L (38-126); Anion Gap 4 mmol/L; Blood Urea Nitrogen 9 mg/dL (9-20); Carbon Dioxide 27 mmol/L (22-30); Chloride 110 mmol/L (98-107); Glucose 116 mg/dL (74-99); Magnesium 1.6 mg/dL (1.6-2.3); Non-African American GFR(CKD) >90 (>60 ml/min/1.73 sqM); Phosphorus 2.8 mg/dL (2.5-4.5); Potassium 3.5 mmol/L (3.5-5.1); Sodium 141 mmol/L (137-145); Total Bilirubin 0.3 mg/dL (0.2-1.3); Total Protein 4.8 g/dL (6.3-8.2)
[2023-09-02] MEDS ORDERED: Magnesium Replacement Protocol 1 EACH MISC MISCELLANE PRN (05:10)
[2023-09-02 05:22] LABS: Glucose,Whole Blood 120 mg/dL (70-110)
[2023-09-02] MEDS: POTASSIUM CHLORIDE 20 MEQ in WATER FOR INJECTION 1 100ML.BAG IVPB SCH ×2 (05:39→08:25)
[2023-09-02 06:14] LABS: ABG Base Excess 4.1 mmol/L; ABG HCO3 28 mmol/L (21-25); ABG Oxygen Saturation 97.2 % (94-97); ABG PCO2 41 mmHg (35-45); ABG PH 7.45 (7.35-7.45); ABG PO2 82 mmHg (83-108); ABG TCO2 30 mmol/L (19-24)
[2023-09-02 06:16] LABS: Allen Test Performed? No
--- NOTE | 2023-09-02 08:06 | XR ---
EXAMINATION TYPE: XR chest 1V portable DATE OF EXAM: 09/02/2023 COMPARISON: 09/01/2023 HISTORY: SOB, Follow Up FINDINGS: Indwelling tubes and catheters are unchanged. No evidence for pneumothorax. No change in bibasilar opacities. Stable appearance of the cardio-mediastinal structures at this time. Pleural effusion unchanged. IMPRESSION: 1. Stable portable chest. Clinical correlation and follow up until resolution is recommended.
[2023-09-02] MEDS: MAGNESIUM SULFATE-D5W PMX 1 GM in DEXTROSE/WATER 1 100ML.BAG IVPB SCH ×2 (08:25→09:58)
[2023-09-02] MEDS: THIAMINE 100 MG/ML 2 ML VIAL IVP SCH (08:26)
[2023-09-02] MEDS: CHLORHEXIDINE GLUCONATE 15 ML CUP MUCOUS MEM SCH ×2 (08:26→21:47)
[2023-09-02] MEDS: PANTOPRAZOLE 40 MG/10 ML VIAL IV SCH (08:26)
--- NOTE | 2023-09-02 10:00 | P.PN ---
Subjective Patient is a 37-year-old male with a past medical history of hypertension, GERD, polysubstance abuse, hepatitis C, chronic back pain, currently everyday smoker and alcohol abuse was brought to the hospital by EMS as he was found unconscious at the spiritism. Patient was given Narcan intranasal x2 without much improvement. Patient was brought to the ER. Patient was intubated for airway protection. Currently sedated. Patient had previous admission to MICU due to drug overdose with lithium. Chest x-ray showed no acute cardiopulmonary process. Support tubes in appropriate position. EKG showed sinus rhythm. CT of the head and cervical spine showed no acute intracranial process. No evidence of cervical spine fracture. Support Endo tracheal tube in appropriate position. Laboratory data showed WBC 8.4 hemoglobin 15.3 and platelets 247 Sodium 136 potassium 3.8 chloride 97 bicarb is 22 BUN 13 and creatinine 0.94 and lactic acid 2.8 AST 60 ALT 28 and alk phos 52 troponin x1 negative. Urinalysis is UDS is positive for amphetamines, methamphetamines, cocaine and marijuana. Serum alcohol level is 472. 08/31/2023 patient remains intubated to protect his airway on mechanical ventilation. His FiO2 is 40% and PEEP is 5. Patient still requiring sedatives and he got extubated easily and hypoxic on to try to taper him down. Currently he is on midazolam 5 mg/h and propofol 50 g per hour. Also he is in restraints. Repeat chest x-ray this morning shows right lower lobe infiltrate suspicious for sebaceous pneumonia patient was started on Zosyn 09/01/2023 Patient remains in the ICU intubated and sedated. The/critical care team helping with his management of the ventilator Patient still confused and he got agitated. He is still receiving sedatives as we are trying to taper them down with me does along down to 4 units and propofol.45. He remains on Zosyn for pneumonia. Blood pressure is borderline and but he does not he needs pressors and is making good urine output. He is also on normal saline at 75 mL/h 09/02/2023 Patient remains sedated and intubated in the ICU. He is less agitated than before and he requires less dose of propofol today at 35. We does all her muscles. But now he is on fentanyl drip at 0.5. Tube feeding is running at 59 ml per hr He remains on Zosyn for his aspiration pneumonia. Repeat chest x-ray from today showing similar opacity in the right flank and infiltrated compared to few days. Objective - Vital Signs Vital signs: Vital Signs Temp 98.9 F 09/02/23 08:00 Pulse 61 09/02/23 09:00 Resp 17 09/02/23 09:00 BP 101/52 09/02/23 09:00 Pulse Ox 97 09/02/23 09:00 FiO2 40 09/02/23 08:00 Intake & Output 09/01/23 09/02/23 09/02/23 18:59 06:59 18:59 Intake Total 2540.190 2476.421 628.601 Output Total 1565 1385 225 Balance 080.185 5637.421 403.601 Weight 96.8 kg 99 kg Intake: IV 1458 1236 334 Piperacillin-Tazobactam 3 100 200 .375 gm In Sodium Chloride 0.9% 100 ml @ 25 mls/hr IVPB Q8H [facility] Rx#: [id number] Potassium Chloride 10 meq 500 100 100 In Water For Injection 1 100ml.bag @ 100 mls/hr IVPB Q1H [facility] Rx#: [id number] Pressure bag 33 36 9 Sodium Chloride 0.9% 1, 825 900 225 000 ml @ 75 mls/hr IV . [id number] [facility] Rx#:[id number] Intake, IV Titration 343.190 442.421 87.601 Amount Midazolam HCl 50 mg In 44.834 6.417 Sodium Chloride 0.9% 40 ml @ 10 MG/HR 10 mls/hr IV .Q5H [facility] Rx#:[id number] Sodium Chloride 0.9% 80 96.638 ml @ 1 MCG/KG/HR 9.16 mls /hr IV .[id number] [facility] with fentaNYL (PF) 1,000 mcg Rx#:[id number] propofoL 1,000 mg In 298.356 339.366 87.601 Empty Bag 1 bag @ 15 MCG/ KG/MIN 10.206 mls/hr IV . [id number] [facility] Rx#:[id number] Tube Feeding 125 708 177 Other 90 90 30 Output: Urine 1565 1385 225 Other: Voiding Method Indwelling Catheter Indwelling Catheter Indwelling Catheter ABP, PAP, CO, CI - Last Documented Arterial Blood Pressure 101/51 - Exam -GENERAL: The patient is intubated and sedated HEENT: Pupils are round and equally reacting to light. EOMI. No scleral icterus. No conjunctival pallor. Normocephalic, atraumatic. No pharyngeal erythema. No thyromegaly. CARDIOVASCULAR: S1 and S2 present. No murmurs, rubs, or gallops. PULMONARY: Chest is clear to auscultation, no wheezing , no crackles. ABDOMEN: Soft, nontender, nondistended, normoactive bowel sounds. No palpable organomegaly. MUSCULOSKELETAL: No joint swelling or deformity. EXTREMITIES: No cyanosis, clubbing, or pedal edema. NEUROLOGICAL: Gross neurological examination did not reveal any focal deficits. SKIN: No rashes. no petechiae. - Labs CBC & Chem 7: 09/02/23 03:40 09/02/23 03:40 Labs: Abnormal Lab Results - Last 24 Hours (Table) 09/01/23 09/01/23 09/02/23 Range/Units 17:27 23:53 03:40 RBC 3.51 L (4.30-5.90) m/uL Hgb 10.0 L (13.0-17.5) gm/dL Hct 30.1 L (39.0-53.0) % Plt Count 140 L (150-450) k/uL ABG pO2 (83-108) mmHg ABG HCO3 (21-25) mmol/L ABG Total CO2 (19-24) mmol/L ABG O2 Saturation (94-97) % Chloride (98-107) mmol/L Creatinine (0.66-1.25) mg/dL Glucose (74-99) mg/dL POC Glucose (mg/dL) 124 H 118 H (70-110) mg/dL Calcium (8.4-10.2) mg/dL Total Protein (6.3-8.2) g/dL Albumin (3.5-5.0) g/dL 09/02/23 09/02/23 09/02/23 Range/Units 03:40 05:18 06:10 RBC (4.30-5.90) m/uL Hgb (13.0-17.5) gm/dL Hct (39.0-53.0) % Plt Count (150-450) k/uL ABG pO2 82 L (83-108) mmHg ABG HCO3 28 H (21-25) mmol/L ABG Total CO2 30 H (19-24) mmol/L ABG O2 Saturation 97.2 H (94-97) % Chloride 110 H (98-107) mmol/L Creatinine 0.57 L (0.66-1.25) mg/dL Glucose 116 H (74-99) mg/dL POC Glucose (mg/dL) 120 H (70-110) mg/dL Calcium 8.0 L (8.4-10.2) mg/dL Total Protein 4.8 L (6.3-8.2) g/dL Albumin 2.3 L (3.5-5.0) g/dL Microbiology - Last 24 Hours (Table) 08/31/23 11:07 Gram Stain - Preliminary Sputum Assessment and Plan Assessment: Right lower lobe pneumonia Metabolic/toxic encephalopathy. Altered mental status due to drug overdose and alcohol intoxication. Currently intubated and on mechanical ventilator for airway protection. Acute alcohol intoxication Polysubstance use with UDS positive for amphetamines, methamphetamines, cocaine and marijuana. Inability to protect airway requiring intubation and mechanical ventilation Lactic acidosis on admission. Improved Hepatitis C. Treatment history not known. Severe alcohol abuse Depression with prior history of suicide attempt Schizoaffective disorder Chronic back pain Currently everyday smoker Plan: Start Zosyn Patient continue with mechanical ventilation with pulmonary/Care team helping with his vent management. Continue with subcutaneous as per management of critical care team, he received Nimbex, propofol, fentanyl and Medozalam drip Labs and medication were reviewed.. Continue same treatment. Continue with sy mptomatic treatment. Resume home medication. Monitor labs and vitals. DVT and GI prophylaxis. Further recommendations as per clinical course of the patient DVT prophylaxis: Subcutaneous heparin GI Prophylaxis: Ppi PT/OT: Pending Prognosis is guarded
[2023-09-02 12:16] LABS: Glucose,Whole Blood 119 mg/dL (70-110)
--- NOTE | 2023-09-02 12:51 | P.PN ---
Subjective Progress Note Date: 09/02/23 Principal diagnosis: Multiple drugs overdose I am seeing this patient in new consultation today 08/29/2023 in the intensive care unit after the patient was found unresponsive outside of the hospital, and intubated for airway protection in the emergency room. Patient is a 37-year-old white male with past medical history significant for polysubstance abuse and prior overdoses requiring intubation, history of depression and suicidal attempts, schizoaffective disorder, hepatitis C, and alcohol abuse. Patient is currently intubated mechanical ventilator and unable to provide any information. Patient had a recent ICU admission back in Mar, 2023 for lithium overdose. He has since been taken off lithium. Patient was brought to the emergency room by EMS yesterday afternoon. Apparently, he was found on the side of a cheondoism. He was unresponsive. He was given multiple doses of Narcan without much improvement. When he arrived to the emergency room, he was intubated by the ER physician. Postintubation chest x-ray shows the endotracheal tube approximately 5.4 cm from the catherine. There was an orogastric tube coursing below the diaphragm. No focal infiltrates or evidence of pneumonia. CT of the brain and C-spine without contrast showed no acute intracranial process. No evidence of C-spine fracture. Patient was admitted to the intensive care unit. He is curr ently intubated to the mechanical ventilator and synchronous. He is sedated on propofol which is currently infusing at 50 mcg/kg/m. Current ventilator settings include assist control, respiratory 14, tidal volume 500, FiO2 40%, and PEEP of 5. Postintubation ABG shows a pO2 greater than 400, pCO2 36, pH of 7.41. CBC on admission was unremarkable. Most recent CMP shows a sodium 145, potassium 3.8, chloride 111, serum bicarb 22, BUN 8, creatinine 0.72, glucose 101. Lactic acid level was elevated, and is down to 2.3. LFTs nonelevated. Troponin less than 0.012. Urine tox screen was positive for amphetamines, methamphetamines, cocaine, and marijuana. Patient was also intoxicated on arriv al with a serum alcohol level 472. Patient has been started on the CIWA protocol. Blood pressure is normotensive. Not requiring any vasopressors. There is an indwelling urinary catheter, urine output is adequate. He will be monitored in the intensive care unit. Patient was evaluated today on 08/30/2023, remains in the ICU, intubated and mechanically ventilated. He is on assist control rate of 14 tidal volume 500 FiO2 40% and EPAP of 5 he was on 50% earlier and his ABG showed a pO2 of 120 pCO2 45 pH of 7.37. Hence FiO2 was cut down to 40%. Patient remains quite sedated, requiring significant amount of sedation mostly because yesterday he became extremely agitated and could not ventilate the patient properly without using multiple medications to keep him sedated and relaxed in order to ventilator properly. Patient did receive Nimbex intermittently that I changed him to fentanyl at 20 mcg/kg/m also had to use versed at 9 mg per hour, and I had to increase the propofol as high as 75 mcg/kg/m. It took that much medication to keep him calm and to make him synchronous with the ventilator otherwise the patient was going wild and extremely agitated, thrashing in bed, and was about to pull his tubes and lines. Patient is now on fentanyl at 20 mcg/kg/h and Versed and 50 mg per hour and I'm cutting it down further is also on propofol at 60 mcg/kg/m receiving vital H before nutritional support at 50 mL per hour via orogastric tube. Today I plan to cut down his propofol to 50 fentanyl down to 0.5 and I'm hoping I could discontinue his Versed. WBC count is 11.2 hemoglobin is 11.1 electrolytes are normal renal profile is normal chest x-ray is showing left lower lobe atelectasis and small left pleural effusion doubt pneumonia. Reevaluated today on 08/31/2023, patient remains in the ICU intubated and mechanically ventilated. Patient is still requiring significant amount of sedation otherwise the patient desaturates and could not ventilate the patient on lower doses of sedation. Yesterday attempts were made to cut down the Versed, but that could not be done, later in the afternoon the patient became extremely agitated, asynchronous with the ventilator, desaturated down to the 70s, and had to be placed back on Versed. He is now on assist control rate of 14 tidal volume 500 FiO2 40% with a PEEP of 5 ABG showed a pO2 of 75 pCO2 43 pH of 7.38 patient remains on IV fluid at 130 mL per hour is on propofol at 60 mcg/kg/m Versed at 5 mg per hour fentanyl 1 mcg/kg/h. Obviously considering his significant sedation requirement, patient is not ready for any form of weaning however I will try to hopefully cut down the propofol to 50 pg/kg/m and hopefully going on on the Versed and bit more. Chest x-ray is showing interval development of right lower lobe infiltrate and small effusion with a left-sided consolidation and left pleural effusion hence the patient was placed on Zosyn empirically. And the patient will receive a dose of Lasix 20 mg IV push WBC count is 9.3 hemoglobin is 10.9 basic metabolic profile is normal, renal profile is normal Reevaluated today 09/01/2023, patient remains in the ICU, intubated and mechanically ventilated. Patient is on assist control rate of 14 tidal volume 500 FiO2 40% and PEEP of 5 ABG showed a pO2 of 83 pCO2 47 pH of 7.39. Patient is still requiring significant amount of sedation otherwise he goes wild and condoms asynchronous with the ventilator. He is now on Versed at 3 mg/h fentanyl at 0.5 mcg/kg/h propofol 45 mcg/kg/m and he is on vital HP at 59 mL per hour. Chest x-ray is suspicious for left lower lobe atelectasis/possible pneumonia and endotracheal tube was noted to be a bit proximal it will be advprisca mccord about to see him down. CBC is relatively normal WBC count 7.1 hemoglobin is 9.8 electrolytes are normal, renal profile is normal, sputum cultures are nondiagnostic showing mostly normal respiratory deisi Patient was reevaluated today on 09/02/2023 remains in the ICU intubated and mechanically ventilated. The amount of sedation seems to be less over the last 24 hours, he is at least of Versed today. Remains on fentanyl at 0.5 mcg/kg/h he is also on propofol down to 35 mcg/kg/m, and he is receiving IV fluid 0.9 normal saline at 75 mL per hour is also on enteral feeding at 59 mL per hour. Remains on Zosyn empirically. He is on assist control rate of 14 tidal volume 500 FiO2 40% and PEEP of 5 ABG showed a pO2 of 82 beats pH of 7.45. Chest x-ray continues to show mostly bibasilar opacities/atelectasis left more so than right. My plan today is to cut down further on sedation, hopefully transition the patient to Precedex, and hopefully consider weaning trial if possible Objective - Vital Signs Vital signs: Vital Signs Temp 99.1 F 09/02/23 12:00 Pulse 79 09/02/23 12:00 Resp 22 09/02/23 12:00 BP 142/86 09/02/23 12:00 Pulse Ox 97 09/02/23 12:00 FiO2 40 09/02/23 12:00 Intake & Output 09/01/23 09/02/23 09/02/23 18:59 06:59 18:59 Intake Total 2540.190 2476.421 1068.292 Output Total 1565 1385 615 Balance 426.893 6328.421 453.292 Weight 96.8 kg 99 kg Intake: IV 1458 1236 568 Piperacillin-Tazobactam 3 100 200 .375 gm In Sodium Chloride 0.9% 100 ml @ 25 mls/hr IVPB Q8H [facility] Rx#: [id number] Potassium Chloride 10 meq 500 100 100 In Water For Injection 1 100ml.bag @ 100 mls/hr IVPB Q1H [facility] Rx#: [id number] Pressure bag 33 36 18 Sodium Chloride 0.9% 1, 825 900 450 000 ml @ 75 mls/hr IV . [id number] [facility] Rx#:[id number] Intake, IV Titration 343.190 442.421 116.292 Amount Midazolam HCl 50 mg In 44.834 6.417 Sodium Chloride 0.9% 40 ml @ 10 MG/HR 10 mls/hr IV .Q5H [facility] Rx#:[id number] Sodium Chloride 0.9% 80 96.638 ml @ 1 MCG/KG/HR 9.16 mls /hr IV .[id number] [facility] with fentaNYL (PF) 1,000 mcg Rx#:[id number] propofoL 1,000 mg In 298.356 339.366 116.292 Empty Bag 1 bag @ 15 MCG/ KG/MIN 10.206 mls/hr IV . Q9H48M [facility] Rx#:[id number] Tube Feeding 610 527 354 Other 90 90 30 Output: Urine 1565 1385 615 Other: Voiding Method Indwelling Catheter Indwelling Catheter Indwelling Catheter ABP, PAP, CO, CI - Last Documented Arterial Blood Pressure 139/71 - Exam GENERAL EXAM: 57-year-old white male intubated, mechanically ventilated, sedated HEAD: Normocephalic and atraumatic, endotracheal tube and orogastric tube are intact EYES: Normal reaction of pupils, equal size. NOSE: Clear with pink turbinates. THROAT: No erythema or exudates. NECK: No masses, no JVD. CHEST: No chest wall deformity. LUNGS: Diminished breath sound the bases no crackles or rhonchi or wheezes CVS: S1 and S2 normal with no audible murmur, regular rhythm. No extra heart sounds ABDOMEN: No hepatosplenomegaly, active bowel sounds, no guarding or rigidity. SKIN: No rashes CENTRAL NERVOUS SYSTEM: Could not assess. EXTREMITIES: There is no peripheral edema, clubbing, or cyanosis. Peripheral pulses are intact. - Labs CBC & Chem 7: 09/02/23 03:40 09/02/23 11:44 Labs: Abnormal Lab Results - Last 24 Hours (Table) 09/01/23 09/01/23 09/02/23 Range/Units 17:27 23:53 03:40 RBC 3.51 L (4.30-5.90) m/uL Hgb 10.0 L (13.0-17.5) gm/dL Hct 30.1 L (39.0-53.0) % Plt Count 140 L (150-450) k/uL ABG pO2 (83-108) mmHg ABG HCO3 (21-25) mmol/L ABG Total CO2 (19-24) mmol/L ABG O2 Saturation (94-97) % Chloride (98-107) mmol/L Creatinine (0.66-1.25) mg/dL Glucose (74-99) mg/dL POC Glucose (mg/dL) 124 H 118 H (70-110) mg/dL Calcium (8.4-10.2) mg/dL Total Protein (6.3-8.2) g/dL Albumin (3.5-5.0) g/dL 09/02/23 09/02/23 09/02/23 Range/Units 03:40 05:18 06:10 RBC (4.30-5.90) m/uL Hgb (13.0-17.5) gm/dL Hct (39.0-53.0) % Plt Count (150-450) k/uL ABG pO2 82 L (83-108) mmHg ABG HCO3 28 H (21-25) mmol/L ABG Total CO2 30 H (19-24) mmol/L ABG O2 Saturation 97.2 H (94-97) % Chloride 110 H (98-107) mmol/L Creatinine 0.57 L (0.66-1.25) mg/dL Glucose 116 H (74-99) mg/dL POC Glucose (mg/dL) 120 H (70-110) mg/dL Calcium 8.0 L (8.4-10.2) mg/dL Total Protein 4.8 L (6.3-8.2) g/dL Albumin 2.3 L (3.5-5.0) g/dL 09/02/23 Range/Units 12:15 RBC (4.30-5.90) m/uL Hgb (13.0-17.5) gm/dL Hct (39.0-53.0) % Plt Count (150-450) k/uL ABG pO2 (83-108) mmHg ABG HCO3 (21-25) mmol/L ABG Total CO2 (19-24) mmol/L ABG O2 Saturation (94-97) % Chloride (98-107) mmol/L Creatinine (0.66-1.25) mg/dL Glucose (74-99) mg/dL POC Glucose (mg/dL) 119 H (70-110) mg/dL Calcium (8.4-10.2) mg/dL Total Protein (6.3-8.2) g/dL Albumin (3.5-5.0) g/dL Microbiology - Last 24 Hours (Table) 08/31/23 11:07 Gram Stain - Preliminary Sputum Assessment and Plan Assessment: Impression: Altered mental status secondary to multiple drugs overdose required intubation and mechanical ventilation to protect his airways Acute multiple drugs overdose and acute alcohol intoxication Acute alcohol intoxication Polysubstance abuse History of depression and previous suicidal attempts Schizoaffective disorder History of hepatitis C Tobacco dependence syndrome Bibasilar atelectasis, possible aspiration pneumonia Recommendation: Continue ventilatory support Hopefully cut down further on sedation today and transition to Precedex Hopefully consider a weaning trial if possible today while on Precedex if he tolerates coming off sedation Continue GI and DVT prophylaxis Continue nutritional support Continue Zosyn Continue daily labs Daily chest x-rays Daily interruption of sedation and weaning trials of possible Prognosis is guarded Patient is critically ill We will continue to follow Critical care time is over 30 Time with Patient: Greater than 30
[2023-09-02] MEDS ORDERED: POTASSIUM BICARBONATE/CIT AC 20 MEQ TABLET.EFF PO ONE (13:20)
[2023-09-02] MEDS: LORazepam 2 MG/ML INJ IV PRN ×6 (15:52→22:20)
[2023-09-02 16:13] LABS: ABG Base Excess 4.1 mmol/L; ABG HCO3 28 mmol/L (21-25); ABG Oxygen Saturation 97.8 % (94-97); ABG PCO2 38 mmHg (35-45); ABG PH 7.47 (7.35-7.45); ABG PO2 93 mmHg (83-108); ABG TCO2 29 mmol/L (19-24)
[2023-09-02 16:14] LABS: Allen Test Performed? no
[2023-09-02 17:56] LABS: Glucose,Whole Blood 111 mg/dL (70-110)
[2023-09-02] MEDS: ACETAMINOPHEN TAB 325 MG TAB PO PRN (20:48)
[2023-09-02 21:49] LABS: ABG Base Excess 3.1 mmol/L; ABG HCO3 27 mmol/L (21-25); ABG Oxygen Saturation 99.3 % (94-97); ABG PCO2 38 mmHg (35-45); ABG PH 7.46 (7.35-7.45); ABG PO2 187 mmHg (83-108); ABG TCO2 28 mmol/L (19-24); Allen Test Performed? Yes
[2023-09-02 23:55] LABS: Glucose,Whole Blood 114 mg/dL (70-110)
[2023-09-03] MEDS: INSULIN ASPART (NovoLOG) 100 UNIT/ML VIAL SQ SCH ×5 (00:01→23:51)
[2023-09-03] MEDS: MIDAZOLAM HCL 50 MG in SODIUM CHLORIDE 0.9% 40 ML IV SCH ×3 (00:18→11:12)
[2023-09-03] MEDS: HEPARIN SODIUM,PORCINE 5,000 UNIT/ML 1 ML VIAL SQ SCH ×4 (00:22→23:54)
[2023-09-03] MEDS: LORazepam 2 MG/ML INJ IV PRN ×6 (02:03→22:36)
[2023-09-03] MEDS: SODIUM CHLORIDE 0.9% 80 ML with fentaNYL (PF) 1,000 MCG IV SCH ×2 (03:01)
[2023-09-03] MEDS: PIPERACILLIN-TAZOBACTAM 3.375 GM in SODIUM CHLORIDE 0.9% 100 ML IVPB SCH ×3 (03:01→19:30)
[2023-09-03 03:30] LABS: Basophils % (A) 0 %; Eosinophils # (A) 0.2 k/uL (0-0.7); Eosinophils % (A) 3 %; HCT 31.5 % (39.0-53.0); HGB 10.6 gm/dL (13.0-17.5); Lymphocytes # (A) 0.9 k/uL (1.0-4.8); Lymphocytes % (A) 13 %; MCH 28.4 pg (25.0-35.0); MCHC 33.6 g/dL (31.0-37.0); MCV 84.7 fL (80.0-100.0); Mean Platelet Volume 9.9; Monocytes # (A) 0.5 k/uL (0-1.0); Monocytes % (A) 8 %; Neutrophils # (A) 5.2 k/uL (1.3-7.7); Neutrophils % (A) 74 %; Platelet Count 158 k/uL (150-450); RBC 3.72 m/uL (4.30-5.90); RDW 13.1 % (11.5-15.5); WBC 7.1 k/uL (3.8-10.6)
[2023-09-03 03:39] LABS: ALT 15 U/L (4-49); AST 26 U/L (17-59); African American GFR (CKD) >90 (>60 ml/min/1.73 sqM); Albumin 2.7 g/dL (3.5-5.0); Alkaline Phosphatase 56 U/L (38-126); Anion Gap 9 mmol/L; Blood Urea Nitrogen 13 mg/dL (9-20); Calcium 8.6 mg/dL (8.4-10.2); Carbon Dioxide 23 mmol/L (22-30); Chloride 111 mmol/L (98-107); Glucose 111 mg/dL (74-99); Magnesium 1.7 mg/dL (1.6-2.3); Non-African American GFR(CKD) >90 (>60 ml/min/1.73 sqM); Potassium 3.8 mmol/L (3.5-5.1); Sodium 143 mmol/L (137-145); Total Bilirubin 0.4 mg/dL (0.2-1.3); Total Protein 5.4 g/dL (6.3-8.2)
[2023-09-03] MEDS ORDERED: MAGNESIUM SULFATE-D5W PMX 1 GM in DEXTROSE/WATER 1 100ML.BAG IVPB ONE ×2 (03:46→07:00)
[2023-09-03] MEDS: SODIUM CHLORIDE 0.9% 1,000 ML IV SCH (03:53)
[2023-09-03] MEDS: POTASSIUM CHLORIDE 10 MEQ in WATER FOR INJECTION 1 100ML.BAG IVPB SCH ×2 (03:53→05:00)
[2023-09-03] MEDS: DEXMEDETOMIDINE/0.9% NACL(PMX) 400 MCG in EMPTY BAG 1 BAG IV SCH (04:45)
[2023-09-03 05:44] LABS: Glucose,Whole Blood 106 mg/dL (70-110)
--- NOTE | 2023-09-03 06:12 | XR ---
EXAMINATION TYPE: XR chest 1V portable DATE OF EXAM: 09/03/2023 CLINICAL HISTORY: Difficulty breathing progress study. TECHNIQUE: Single AP portable semiupright view of the chest is obtained. COMPARISON: Chest x-ray from one day earlier and older studies. FINDINGS: Interval removal of endotracheal tube. Stable orogastric tube. Worsening right basilar opacity. Improved aeration left lung base. Upper lungs remain clear. Cardiac silhouette size stable and upper limits of normal. Osseous structures are intact. IMPRESSION: Interval extubation. Improving left basilar opacity. Worsening right basilar consolidatio n and/or atelectasis noted.
[2023-09-03] MEDS: HYDROmorphone 0.5 MG/0.5 ML SYRINGE IVP PRN ×5 (06:15→23:54)
[2023-09-03 06:16] LABS: ABG Base Excess 2.1 mmol/L; ABG HCO3 26 mmol/L (21-25); ABG Oxygen Saturation 99.8 % (94-97); ABG PCO2 36 mmHg (35-45); ABG PH 7.46 (7.35-7.45); ABG PO2 307 mmHg (83-108); ABG TCO2 27 mmol/L (19-24); Allen Test Performed? Yes
[2023-09-03] MEDS: THIAMINE 100 MG/ML 2 ML VIAL IVP SCH (07:32)
[2023-09-03] MEDS: PANTOPRAZOLE 40 MG/10 ML VIAL IV SCH (07:32)
[2023-09-03] MEDS ORDERED: SENNOSIDES 8.6 MG TAB PO PRN (08:28)
--- NOTE | 2023-09-03 08:32 | P.PN ---
Subjective Patient is a 37-year-old male with a past medical history of hypertension, GERD, polysubstance abuse, hepatitis C, chronic back pain, currently everyday smoker and alcohol abuse was brought to the hospital by EMS as he was found unconscious at the [facility]. Patient was given Narcan intranasal x2 without much improvement. Patient was brought to the ER. Patient was intubated for airway protection. Currently sedated. Patient had previous admission to MICU due to drug overdose with lithium. Chest x-ray showed no acute cardiopulmonary process. Support tubes in appropriate position. EKG showed sinus rhythm. CT of the head and cervical spine showed no acute intracranial process. No evidence of cervical spine fracture. Support Endo tracheal tube in appropriate position. Laboratory data showed WBC 8.4 hemoglobin 15.3 and platelets 247 Sodium 136 potassium 3.8 chloride 97 bicarb is 22 BUN 13 and creatinine 0.94 and lactic acid 2.8 AST 60 ALT 28 and alk phos 52 troponin x1 negative. Urinalysis is UDS is positive for amphetamines, methamphetamines, cocaine and marijuana. Serum alcohol level is 472. 08/31/2023 patient remains intubated to protect his airway on mechanical ventilation. His FiO2 is 40% and PEEP is 5. Patient still requiring sedatives and he got extubated easily and hypoxic on to try to taper him down. Currently he is on midazolam 5 mg/h and propofol 50 g per hour. Also he is in restraints. Repeat chest x-ray this morning shows right lower lobe infiltrate suspicious for sebaceous pneumonia patient was started on Zosyn 09/01/2023 Patient remains in the ICU intubated and sedated. The/critical care team helping with his management of the ventilator Patient still confused and he got agitated. He is still receiving sedatives as we are trying to taper them down with me does along down to 4 units and propofol.45. He remains on Zosyn for pneumonia. Blood pressure is borderline and but he does not he needs pressors and is making good urine output. He is also on normal saline at 75 mL/h 09/02/2023 Patient remains sedated and intubated in the ICU. He is less agitated than before and he requires less dose of propofol today at 35. We does all her muscles. But now he is on fentanyl drip at 0.5. Tube feeding is running at 59 ml per hr He remains on Zosyn for his aspiration pneumonia. Repeat chest x-ray from today showing similar opacity in the right flank and infiltrated compared to few days. 09/03/2023 Patient remains in the ICU in critical condition, he got extubated and currently he is on BiPAP. He does not answer questions and he does not follow commands looks tired. BiPAP setting of 12/6 and FiO2 of 60% Patient hemodynamically stable. His abdomen is soft. Cat catheter in place. He has been in his hand. Discussed patient's and laxative for provided. Especially he is on narcotics and Dilaudid for pain control Objective - Vital Signs Vital signs: Vital Signs Temp 98.2 F 09/03/23 08:00 Pulse 61 09/03/23 08:00 Resp 31 H 09/03/23 08:00 BP 145/80 09/03/23 08:00 Pulse Ox 97 09/03/23 08:00 FiO2 60 09/03/23 08:00 Intake & Output 09/02/23 09/03/23 09/03/23 18:59 06:59 18:59 Intake Total 2002.247 1194.212 264.332 Output Total 1650 745 175 Balance 352.247 449.212 89.332 Weight 100 kg Intake: IV 1114 1058 256 Magnesium Sulfate-D5w Pmx 100 1 gm In Dextrose/Water 1 100ml.bag @ 100 mls/hr IVPB ONCE ONE Rx#: [id number] Potassium Chloride 10 meq 100 200 In Water For Injection 1 100ml.bag @ 100 mls/hr IVPB Q1H [facility] Rx#: [id number] Pressure bag 39 33 6 Sodium Chloride 0.9% 1, 975 825 150 000 ml @ 75 mls/hr IV . [id number] [facility] Rx#:[id number] Intake, IV Titration 209.247 136.212 8.332 Amount Dexmedetomidine/0.9% NaCl 40.59 136.212 8.332 (Pmx) 400 mcg In Empty Bag 1 bag @ 0.2 MCG/KG/HR 4.95 mls/hr IV .[id number] [facility] Rx#:[id number] Sodium Chloride 0.9% 80 52.365 ml @ 1 MCG/KG/HR 9.16 mls /hr IV .[id number] [facility] with fentaNYL (PF) 1,000 mcg Rx#:[id number] propofoL 1,000 mg In 116.292 Empty Bag 1 bag @ 15 MCG/ KG/MIN 10.206 mls/hr IV . [id number] [facility] Rx#:[id number] Tube Feeding 649 Other 30 Output: Urine 1650 745 175 Other: Voiding Method Indwelling Catheter Indwelling Catheter Indwelling Catheter ABP, PAP, CO, CI - Last Documented Arterial Blood Pressure 147/94 - Exam -GENERAL: The patient is intubated and sedated HEENT: Pupils are round and equally reacting to light. EOMI. No scleral icterus. No conjunctival pallor. Normocephalic, atraumatic. No pharyngeal erythema. No thyromegaly. CARDIOVASCULAR: S1 and S2 present. No murmurs, rubs, or gallops. PULMONARY: Chest is clear to auscultation, no wheezing , no crackles. ABDOMEN: Soft, nontender, nondistended, normoactive bowel sounds. No palpable organomegaly. MUSCULOSKELETAL: No joint swelling or deformity. EXTREMITIES: No cyanosis, clubbing, or pedal edema. NEUROLOGICAL: Gross neurological examination did not reveal any focal deficits. SKIN: No rashes. no petechiae. - Labs CBC & Chem 7: 09/03/23 03:15 09/03/23 03:15 Labs: Abnormal Lab Results - Last 24 Hours (Table) 09/02/23 09/02/23 09/02/23 Range/Units 12:15 16:09 17:54 RBC (4.30-5.90) m/uL Hgb (13.0-17.5) gm/dL Hct (39.0-53.0) % Lymphocytes # (1.0-4.8) k/uL ABG pH 7.47 H (7.35-7.45) ABG pO2 (83-108) mmHg ABG HCO3 28 H (21-25) mmol/L ABG Total CO2 29 H (19-24) mmol/L ABG O2 Saturation 97.8 H (94-97) % Chloride (98-107) mmol/L Creatinine (0.66-1.25) mg/dL Glucose (74-99) mg/dL POC Glucose (mg/dL) 119 H 111 H (70-110) mg/dL Total Protein (6.3-8.2) g/dL Albumin (3.5-5.0) g/dL 09/02/23 09/02/23 09/03/23 Range/Units 21:46 23:52 03:15 RBC 3.72 L (4.30-5.90) m/uL Hgb 10.6 L (13.0-17.5) gm/dL Hct 31.5 L (39.0-53.0) % Lymphocytes # 0.9 L (1.0-4.8) k/uL ABG pH 7.46 H (7.35-7.45) ABG pO2 187 H (83-108) mmHg ABG HCO3 27 H (21-25) mmol/L ABG Total CO2 28 H (19-24) mmol/L ABG O2 Saturation 99.3 H (94-97) % Chloride (98-107) mmol/L Creatinine (0.66-1.25) mg/dL Glucose (74-99) mg/dL POC Glucose (mg/dL) 114 H (70-110) mg/dL Total Protein (6.3-8.2) g/dL Albumin (3.5-5.0) g/dL 09/03/23 09/03/23 Range/Units 03:15 06:13 RBC (4.30-5.90) m/uL Hgb (13.0-17.5) gm/dL Hct (39.0-53.0) % Lymphocytes # (1.0-4.8) k/uL ABG pH 7.46 H (7.35-7.45) ABG pO2 307 H (83-108) mmHg ABG HCO3 26 H (21-25) mmol/L ABG Total CO2 27 H (19-24) mmol/L ABG O2 Saturation 99.8 H (94-97) % Chloride 111 H (98-107) mmol/L Creatinine 0.53 L (0.66-1.25) mg/dL Glucose 111 H (74-99) mg/dL POC Glucose (mg/dL) (70-110) mg/dL Total Protein 5.4 L (6.3-8.2) g/dL Albumin 2.7 L (3.5-5.0) g/dL Microbiology - Last 24 Hours (Table) 09/01/23 08:25 Blood Culture - Preliminary Blood 08/31/23 11:07 Gram Stain - Preliminary Sputum Assessment and Plan Assessment: Right lower lobe pneumonia Metabolic/toxic encephalopathy. Altered mental status due to drug overdose and alcohol intoxication. Status post extubation and currently on BiPAP machine Polysubstance use with UDS positive for amphetamines, methamphetamines, cocaine and marijuana. Inability to protect airway requiring intubation and mechanical ventilation Lactic acidosis on admission. Improved Hepatitis C. Treatment history not known. Severe alcohol abuse Depression with prior history of suicide attempt Schizoaffective disorder Chronic back pain Currently everyday smoker Plan: Continue with Zosyn Continue with BiPAP continue with pain management and laxative Labs and medication were reviewed.. Continue same treatment. Continue with symptomatic treatment. Resume home medication. Monitor labs and vitals. DVT and GI prophylaxis. Further recommendations as per clinical course of the patient DVT prophylaxis: Subcutaneous heparin GI Prophylaxis: Ppi PT/OT: Pending Prognosis is guarded
[2023-09-03 10:06] LABS: ABG Base Excess 2.3 mmol/L; ABG HCO3 27 mmol/L (21-25); ABG Oxygen Saturation 97.2 % (94-97); ABG PCO2 40 mmHg (35-45); ABG PH 7.43 (7.35-7.45); ABG PO2 88 mmHg (83-108); ABG TCO2 28 mmol/L (19-24)
[2023-09-03 10:08] LABS: Allen Test Performed? no
[2023-09-03 11:58] LABS: Glucose,Whole Blood 108 mg/dL (70-110)
[2023-09-03] MEDS: ACETAMINOPHEN TAB 325 MG TAB PO PRN ×2 (12:06→17:26)
--- NOTE | 2023-09-03 13:28 | P.PN ---
Subjective Progress Note Date: 09/03/23 Principal diagnosis: Multiple drugs overdose I am seeing this patient in new consultation today 08/29/2023 in the intensive care unit after the patient was found unresponsive outside of the hospital, and intubated for airway protection in the emergency room. Patient is a 37-year-old white male with past medical history significant for polysubstance abuse and prior overdoses requiring intubation, history of depression and suicidal attempts, schizoaffective disorder, hepatitis C, and alcohol abuse. Patient is currently intubated mechanical ventilator and unable to provide any information. Patient had a recent ICU admission back in Mar, 2023 for lithium overdose. He has since been taken off lithium. Patient was brought to the emergency room by EMS yesterday afternoon. Apparently, he was found on the side of a [facility]. He was unresponsive. He was given multiple doses of Narcan without much improvement. When he arrived to the emergency room, he was intubated by the ER physician. Postintubation chest x-ray shows the endotracheal tube approximately 5.4 cm from the catherine. There was an orogastric tube coursing below the diaphragm. No focal infiltrates or evidence of pneumonia. CT of the brain and C-spine without contrast showed no acute intracranial process. No evidence of C-spine fracture. Patient was admitted to the intensive care unit. He is curr ently intubated to the mechanical ventilator and synchronous. He is sedated on propofol which is currently infusing at 50 mcg/kg/m. Current ventilator settings include assist control, respiratory 14, tidal volume 500, FiO2 40%, and PEEP of 5. Postintubation ABG shows a pO2 greater than 400, pCO2 36, pH of 7.41. CBC on admission was unremarkable. Most recent CMP shows a sodium 145, potassium 3.8, chloride 111, serum bicarb 22, BUN 8, creatinine 0.72, glucose 101. Lactic acid level was elevated, and is down to 2.3. LFTs nonelevated. Troponin less than 0.012. Urine tox screen was positive for amphetamines, methamphetamines, cocaine, and marijuana. Patient was also intoxicated on arriv al with a serum alcohol level 472. Patient has been started on the CIWA protocol. Blood pressure is normotensive. Not requiring any vasopressors. There is an indwelling urinary catheter, urine output is adequate. He will be monitored in the intensive care unit. Patient was evaluated today on 08/30/2023, remains in the ICU, intubated and mechanically ventilated. He is on assist control rate of 14 tidal volume 500 FiO2 40% and EPAP of 5 he was on 50% earlier and his ABG showed a pO2 of 120 pCO2 45 pH of 7.37. Hence FiO2 was cut down to 40%. Patient remains quite sedated, requiring significant amount of sedation mostly because yesterday he became extremely agitated and could not ventilate the patient properly without using multiple medications to keep him sedated and relaxed in order to ventilator properly. Patient did receive Nimbex intermittently that I changed him to fentanyl at 20 mcg/kg/m also had to use versed at 9 mg per hour, and I had to increase the propofol as high as 75 mcg/kg/m. It took that much medication to keep him calm and to make him synchronous with the ventilator otherwise the patient was going wild and extremely agitated, thrashing in bed, and was about to pull his tubes and lines. Patient is now on fentanyl at 20 mcg/kg/h and Versed and 50 mg per hour and I'm cutting it down further is also on propofol at 60 mcg/kg/m receiving vital H before nutritional support at 50 mL per hour via orogastric tube. Today I plan to cut down his propofol to 50 fentanyl down to 0.5 and I'm hoping I could discontinue his Versed. WBC count is 11.2 hemoglobin is 11.1 electrolytes are normal renal profile is normal chest x-ray is showing left lower lobe atelectasis and small left pleural effusion doubt pneumonia. Reevaluated today on 08/31/2023, patient remains in the ICU intubated and mechanically ventilated. Patient is still requiring significant amount of sedation otherwise the patient desaturates and could not ventilate the patient on lower doses of sedation. Yesterday attempts were made to cut down the Versed, but that could not be done, later in the afternoon the patient became extremely agitated, asynchronous with the ventilator, desaturated down to the 70s, and had to be placed back on Versed. He is now on assist control rate of 14 tidal volume 500 FiO2 40% with a PEEP of 5 ABG showed a pO2 of 75 pCO2 43 pH of 7.38 patient remains on IV fluid at 130 mL per hour is on propofol at 60 mcg/kg/m Versed at 5 mg per hour fentanyl 1 mcg/kg/h. Obviously considering his significant sedation requirement, patient is not ready for any form of weaning however I will try to hopefully cut down the propofol to 50 pg/kg/m and hopefully going on on the Versed and bit more. Chest x-ray is showing interval development of right lower lobe infiltrate and small effusion with a left-sided consolidation and left pleural effusion hence the patient was placed on Zosyn empirically. And the patient will receive a dose of Lasix 20 mg IV push WBC count is 9.3 hemoglobin is 10.9 basic metabolic profile is normal, renal profile is normal Reevaluated today 09/01/2023, patient remains in the ICU, intubated and mechanically ventilated. Patient is on assist control rate of 14 tidal volume 500 FiO2 40% and PEEP of 5 ABG showed a pO2 of 83 pCO2 47 pH of 7.39. Patient is still requiring significant amount of sedation otherwise he goes wild and condoms asynchronous with the ventilator. He is now on Versed at 3 mg/h fentanyl at 0.5 mcg/kg/h propofol 45 mcg/kg/m and he is on vital HP at 59 mL per hour. Chest x-ray is suspicious for left lower lobe atelectasis/possible pneumonia and endotracheal tube was noted to be a bit proximal it will be advprisca mccord about to see him down. CBC is relatively normal WBC count 7.1 hemoglobin is 9.8 electrolytes are normal, renal profile is normal, sputum cultures are nondiagnostic showing mostly normal respiratory deisi Patient was reevaluated today on 09/02/2023 remains in the ICU intubated and mechanically ventilated. The amount of sedation seems to be less over the last 24 hours, he is at least of Versed today. Remains on fentanyl at 0.5 mcg/kg/h he is also on propofol down to 35 mcg/kg/m, and he is receiving IV fluid 0.9 normal saline at 75 mL per hour is also on enteral feeding at 59 mL per hour. Remains on Zosyn empirically. He is on assist control rate of 14 tidal volume 500 FiO2 40% and PEEP of 5 ABG showed a pO2 of 82 beats pH of 7.45. Chest x-ray continues to show mostly bibasilar opacities/atelectasis left more so than right. My plan today is to cut down further on sedation, hopefully transition the patient to Precedex, and hopefully consider weaning trial if possible Patient was evaluated today on 09/03/2023, remains in the ICU, patient was weaned off mechanical ventilation yesterday, and he was given a trial of pressure support and CPAP, and he was extubated to BiPAP 10/25/60%. ABG this morning showed a pO2 of 301 pCO2 36 pH of 7.46 and recommended that we keep him on BiPAP for now. Chest x-ray is showing right lower lobe atelectasis, doubt pneumonia but it is not entirely ruled out nonetheless the patient remains empirically on Zosyn. Patient is quite lethargic and obtunded today, repeat ABG showed pO2 of 88 pCO2 of 40 pH of 7.43 and this was on 60% FiO2. Hence I recommended we cut down on his sedation to minimal patient was on Precedex until 8:00 this morning and this was discontinued he was given a 0.5 mg dose of Dilaudid IV push, and that seemed to help his anxiety and agitation earlier today seems to be actually working better than Precedex. Considering the repeat ABG seems to be reasonable, I have no plans to reintubate the patient unless it is felt necessary. However we need to cut down on sedation. WBC count today is 7.1 hemoglobin 10.6, renal profile is normal basic metabolic profile is normal. Sputum cultures have grown MSSA Objective - Vital Signs Vital signs: Vital Signs Temp 100.6 F H 09/03/23 12:00 Pulse 71 09/03/23 12:00 Resp 14 09/03/23 12:00 BP 163/96 09/03/23 12:00 Pulse Ox 98 09/03/23 12:00 FiO2 60 09/03/23 12:00 Intake & Output 09/02/23 09/03/23 09/03/23 18:59 06:59 18:59 Intake Total 2002.247 1194.212 576.332 Output Total 1650 745 540 Balance 352.247 449.212 36.332 Weight 100 kg Intake: IV 1114 1058 568 Magnesium Sulfate-D5w Pmx 100 1 gm In Dextrose/Water 1 100ml.bag @ 100 mls/hr IVPB ONCE ONE Rx#: [id number] Potassium Chloride 10 meq 100 200 In Water For Injection 1 100ml.bag @ 100 mls/hr IVPB Q1H [facility] Rx#: [id number] Pressure bag 39 33 18 Sodium Chloride 0.9% 1, 975 825 450 000 ml @ 75 mls/hr IV . [id number] [facility] Rx#:[id number] Intake, IV Titration 209.247 136.212 8.332 Amount Dexmedetomidine/0.9% NaCl 40.59 136.212 8.332 (Pmx) 400 mcg In Empty Bag 1 bag @ 0.2 MCG/KG/HR 4.95 mls/hr IV .[id number] [facility] Rx#:[id number] Sodium Chloride 0.9% 80 52.365 ml @ 1 MCG/KG/HR 9.16 mls /hr IV .[id number] [facility] with fentaNYL (PF) 1,000 mcg Rx#:[id number] propofoL 1,000 mg In 116.292 Empty Bag 1 bag @ 15 MCG/ KG/MIN 10.206 mls/hr IV . [id number] [facility] Rx#:[id number] Tube Feeding 649 Other 30 Output: Urine 1650 745 540 Other: Voiding Method Indwelling Catheter Indwelling Catheter Indwelling Catheter # Bowel Movements 1 ABP, PAP, CO, CI - Last Documented Arterial Blood Pressure 176/76 - Exam GENERAL EXAM: 57-year-old white male on BiPAP, lethargic and difficult to arouse. Nonetheless he opens his eyes and follows simple instructions like wiggling his toes but very weak HEAD: Normocephalic and atraumatic, endotracheal tube and orogastric tube are intact EYES: Normal reaction of pupils, equal size. NOSE: Clear with pink turbinates. THROAT: No erythema or exudates. NECK: No masses, no JVD. CHEST: No chest wall deformity. LUNGS: Diminished breath sound the bases no crackles or rhonchi or wheezes CVS: S1 and S2 normal with no audible murmur, regular rhythm. No extra heart sounds ABDOMEN: No hepatosplenomegaly, active bowel sounds, no guarding or rigidity. SKIN: No rashes CENTRAL NERVOUS SYSTEM: Arousable, opens eyes only follows simple instructions like wiggling toes but weakly EXTREMITIES: There is no peripheral edema, clubbing, or cyanosis. Peripheral pulses are intact. - Labs CBC & Chem 7: 09/03/23 03:15 09/03/23 03:15 Labs: Abnormal Lab Results - Last 24 Hours (Table) 09/02/23 09/02/23 09/02/23 Range/Units 16:09 17:54 21:46 RBC (4.30-5.90) m/uL Hgb (13.0-17.5) gm/dL Hct (39.0-53.0) % Lymphocytes # (1.0-4.8) k/uL ABG pH 7.47 H 7.46 H (7.35-7.45) ABG pO2 187 H (83-108) mmHg ABG HCO3 28 H 27 H (21-25) mmol/L ABG Total CO2 29 H 28 H (19-24) mmol/L ABG O2 Saturation 97.8 H 99.3 H (94-97) % Chloride (98-107) mmol/L Creatinine (0.66-1.25) mg/dL Glucose (74-99) mg/dL POC Glucose (mg/dL) 111 H (70-110) mg/dL Total Protein (6.3-8.2) g/dL Albumin (3.5-5.0) g/dL 09/02/23 09/03/23 09/03/23 Range/Units 23:52 03:15 03:15 RBC 3.72 L (4.30-5.90) m/uL Hgb 10.6 L (13.0-17.5) gm/dL Hct 31.5 L (39.0-53.0) % Lymphocytes # 0.9 L (1.0-4.8) k/uL ABG pH (7.35-7.45) ABG pO2 (83-108) mmHg ABG HCO3 (21-25) mmol/L ABG Total CO2 (19-24) mmol/L ABG O2 Saturation (94-97) % Chloride 111 H (98-107) mmol/L Creatinine 0.53 L (0.66-1.25) mg/dL Glucose 111 H (74-99) mg/dL POC Glucose (mg/dL) 114 H (70-110) mg/dL Total Protein 5.4 L (6.3-8.2) g/dL Albumin 2.7 L (3.5-5.0) g/dL 09/03/23 09/03/23 Range/Units 06:13 10:03 RBC (4.30-5.90) m/uL Hgb (13.0-17.5) gm/dL Hct (39.0-53.0) % Lymphocytes # (1.0-4.8) k/uL ABG pH 7.46 H (7.35-7.45) ABG pO2 307 H (83-108) mmHg ABG HCO3 26 H 27 H (21-25) mmol/L ABG Total CO2 27 H 28 H (19-24) mmol/L ABG O2 Saturation 99.8 H 97.2 H (94-97) % Chloride (98-107) mmol/L Creatinine (0.66-1.25) mg/dL Glucose (74-99) mg/dL POC Glucose (mg/dL) (70-110) mg/dL Total Protein (6.3-8.2) g/dL Albumin (3.5-5.0) g/dL Microbiology - Last 24 Hours (Table) 09/01/23 08:25 Blood Culture - Preliminary Blood 08/31/23 11:07 Gram Stain - Final Sputum Sputum Culture - Final Staphylococcus aureus Assessment and Plan Assessment: Impression: Altered mental status secondary to multiple drugs overdose required intubation and mechanical ventilation to protect his airways Acute multiple drugs overdose and acute alcohol intoxication Acute alcohol intoxication Polysubstance abuse History of depression and previous suicidal attempts Schizoaffective disorder History of hepatitis C Tobacco dependence syndrome Bibasilar atelectasis, possible aspiration pneumonia Recommendation: Continue BiPAP Continue to monitor in the ICU Minimize sedation for now until the patient is more awake Continue Dilaudid as needed for extreme agitation Continue GI and DVT prophylaxis Hold any feedings for now. And aspiration precautions Encourage incentive spirometry was the patient is more awake Continue Zosyn Continue daily labs Daily chest x-rays Prognosis remains relatively guarded No plans to transfer out of the ICU today Patient remains critically ill We will continue to follow Critical care time is over 30 Time with Patient: Greater than 30
[2023-09-03 17:33] LABS: Glucose,Whole Blood 105 mg/dL (70-110)
[2023-09-03 23:48] LABS: Glucose,Whole Blood 83 mg/dL (70-110)
[2023-09-04] MEDS: HYDROmorphone 0.5 MG/0.5 ML SYRINGE IVP PRN ×10 (01:39→22:37)
[2023-09-04] MEDS: PIPERACILLIN-TAZOBACTAM 3.375 GM in SODIUM CHLORIDE 0.9% 100 ML IVPB SCH ×3 (03:03→18:00)
[2023-09-04 03:47] LABS: HCT 28.2 % (39.0-53.0); HGB 9.9 gm/dL (13.0-17.5); MCH 29.2 pg (25.0-35.0); MCHC 34.9 g/dL (31.0-37.0); MCV 83.6 fL (80.0-100.0); Mean Platelet Volume 9.5; Platelet Count 148 k/uL (150-450); RBC 3.38 m/uL (4.30-5.90); RDW 13.2 % (11.5-15.5); WBC 7.2 k/uL (3.8-10.6)
[2023-09-04 04:03] LABS: African American GFR (CKD) >90 (>60 ml/min/1.73 sqM); Anion Gap 6 mmol/L; Blood Urea Nitrogen 12 mg/dL (9-20); Calcium 8.5 mg/dL (8.4-10.2); Carbon Dioxide 25 mmol/L (22-30); Chloride 108 mmol/L (98-107); Glucose 86 mg/dL (74-99); Magnesium 1.8 mg/dL (1.6-2.3); Non-African American GFR(CKD) >90 (>60 ml/min/1.73 sqM); Potassium 3.6 mmol/L (3.5-5.1); Sodium 139 mmol/L (137-145)
[2023-09-04] MEDS: SODIUM CHLORIDE 0.9% 1,000 ML IV SCH ×2 (04:33→16:50)
[2023-09-04] MEDS: POTASSIUM CHLORIDE 10 MEQ in WATER FOR INJECTION 1 100ML.BAG IVPB SCH ×2 (04:33→05:54)
[2023-09-04 04:56] LABS: Glucose,Whole Blood 87 mg/dL (70-110)
[2023-09-04] MEDS: INSULIN ASPART (NovoLOG) 100 UNIT/ML VIAL SQ SCH ×3 (04:56→18:01)
[2023-09-04] MEDS: PANTOPRAZOLE 40 MG/10 ML VIAL IV SCH (07:39)
[2023-09-04] MEDS: LORazepam 2 MG/ML INJ IV PRN ×7 (07:39→23:30)
[2023-09-04] MEDS: HEPARIN SODIUM,PORCINE 5,000 UNIT/ML 1 ML VIAL SQ SCH ×2 (07:40→16:47)
[2023-09-04] MEDS: THIAMINE 100 MG/ML 2 ML VIAL IVP SCH (07:41)
[2023-09-04] MEDS ORDERED: MAGNESIUM SULFATE-D5W PMX 1 GM in DEXTROSE/WATER 1 100ML.BAG IVPB ONE (08:00)
--- NOTE | 2023-09-04 09:01 | XR ---
EXAMINATION TYPE: XR chest 1V portable DATE OF EXAM: 09/04/2023 COMPARISON: 09/02/2023 HISTORY: Respiratory failure TECHNIQUE: Single frontal view of the chest is obtained. FINDINGS: Bilateral subsegmental consolidation. No pleural effusion or pneumothorax. Heart size norm al. Osseous structures. IMPRESSION: Bilateral lower lobe infiltrate.
[2023-09-04 12:11] LABS: Glucose,Whole Blood 89 mg/dL (70-110)
[2023-09-04 12:17] VITALS: BMI 28.8
--- NOTE | 2023-09-04 13:32 | P.PN ---
Subjective Patient is a 37-year-old male with a past medical history of hypertension, GERD, polysubstance abuse, hepatitis C, chronic back pain, currently everyday smoker and alcohol abuse was brought to the hospital by EMS as he was found unconscious at the [facility]. Patient was given Narcan intranasal x2 without much improvement. Patient was brought to the ER. Patient was intubated for airway protection. Currently sedated. Patient had previous admission to MICU due to drug overdose with lithium. Chest x-ray showed no acute cardiopulmonary process. Support tubes in appropriate position. EKG showed sinus rhythm. CT of the head and cervical spine showed no acute intracranial process. No evidence of cervical spine fracture. Support Endo tracheal tube in appropriate position. Laboratory data showed WBC 8.4 hemoglobin 15.3 and platelets 247 Sodium 136 potassium 3.8 chloride 97 bicarb is 22 BUN 13 and creatinine 0.94 and lactic acid 2.8 AST 60 ALT 28 and alk phos 52 troponin x1 negative. Urinalysis is UDS is positive for amphetamines, methamphetamines, cocaine and marijuana. Serum alcohol level is 472. 08/31/2023 patient remains intubated to protect his airway on mechanical ventilation. His FiO2 is 40% and PEEP is 5. Patient still requiring sedatives and he got extubated easily and hypoxic on to try to taper him down. Currently he is on midazolam 5 mg/h and propofol 50 g per hour. Also he is in restraints. Repeat chest x-ray this morning shows right lower lobe infiltrate suspicious for sebaceous pneumonia patient was started on Zosyn 09/01/2023 Patient remains in the ICU intubated and sedated. The/critical care team helping with his management of the ventilator Patient still confused and he got agitated. He is still receiving sedatives as we are trying to taper them down with me does along down to 4 units and propofol.45. He remains on Zosyn for pneumonia. Blood pressure is borderline and but he does not he needs pressors and is making good urine output. He is also on normal saline at 75 mL/h 09/02/2023 Patient remains sedated and intubated in the ICU. He is less agitated than before and he requires less dose of propofol today at 35. We does all her muscles. But now he is on fentanyl drip at 0.5. Tube feeding is running at 59 ml per hr He remains on Zosyn for his aspiration pneumonia. Repeat chest x-ray from today showing similar opacity in the right flank and infiltrated compared to few days. 09/03/2023 Patient remains in the ICU in critical condition, he got extubated and currently he is on BiPAP. He does not answer questions and he does not follow commands looks tired. BiPAP setting of 12/6 and FiO2 of 60% Patient hemodynamically stable. His abdomen is soft. Cat catheter in place. He has been in his hand. Discussed patient's and laxative for provided. Especially he is on narcotics and Dilaudid for pain control Patient is agitated and nervous with a tremor and shakiness in his upper extremity, and upper trunk and head. Most likely related to his withdrawal symptoms, he looks drowsy significantly but he is oriented to time place and person. He is on 2 L oxygen with saturation of 93%, he still has low-grade temperature about 100.5. Tachypneic around 24-31. He has mild anemia with hemoglobin 9.9 and platelet count 148, WBCs 7.2. He's off sedatives. Remains on Zosyn 1 sputum culture showing MSSA. Objective - Vital Signs Vital signs: Vital Signs Temp 99.1 F 09/04/23 12:00 Pulse 82 09/04/23 12:00 Resp 31 H 09/04/23 12:00 BP 142/64 09/04/23 12:00 Pulse Ox 93 L 09/04/23 12:00 FiO2 40 09/03/23 15:59 Intake & Output 09/03/23 09/04/23 09/04/23 18:59 06:59 18:59 Intake Total 8047.576 0606 156 Output Total 1790 1590 1650 Balance -577.668 -432 -1494 Weight 96.2 kg 96.2 kg Intake: IV 1114 1158 156 Magnesium Sulfate-D5w Pmx 100 1 gm In Dextrose/Water 1 100ml.bag @ 100 mls/hr IVPB ONCE ONE Rx#: [id number] Piperacillin-Tazobactam 3 100 .375 gm In Sodium Chloride 0.9% 100 ml @ 25 mls/hr IVPB Q8H [facility] Rx#: [id number] Potassium Chloride 10 meq 200 In Water For Injection 1 100ml.bag @ 100 mls/hr IVPB Q1H [facility] Rx#: [id number] Pressure bag 39 33 6 Sodium Chloride 0.9% 1, 975 825 150 000 ml @ 75 mls/hr IV . [id number] [facility] Rx#:[id number] Intake, IV Titration 8.332 Amount Dexmedetomidine/0.9% NaCl 8.332 (Pmx) 400 mcg In Empty Bag 1 bag @ 0.2 MCG/KG/HR 4.95 mls/hr IV .[id number] [facility] Rx#:[id number] Tube Feeding 90 Output: Urine 1790 1590 1650 Other: Voiding Method Indwelling Catheter Indwelling Catheter Indwelling Catheter # Bowel Movements 1 ABP, PAP, CO, CI - Last Documented Arterial Blood Pressure 132/90 - Exam --GENERAL: The patient is awake alert to time place person, very drowsy, very agitated with the tremors and shakiness in his upper body HEENT: Pupils are round and equally reacting to light. EOMI. No scleral icterus. No conjunctival pallor. Normocephalic, atraumatic. No pharyngeal erythema. No thyromegaly. CARDIOVASCULAR: S1 and S2 present. No murmurs, rubs, or gallops. PULMONARY: Chest is clear to auscultation, no wheezing , no crackles. ABDOMEN: Soft, nontender, nondistended, normoactive bowel sounds. No palpable organomegaly. MUSCULOSKELETAL: No joint swelling or deformity. EXTREMITIES: No cyanosis, clubbing, or pedal edema. NEUROLOGICAL: Gross neurological examination did not reveal any focal deficits. SKIN: No rashes. no petechiae. - Labs CBC & Chem 7: 09/04/23 03:23 09/04/23 03:23 Labs: Abnormal Lab Results - Last 24 Hours (Table) 09/04/23 09/04/23 Range/Units 03:23 03:23 RBC 3.38 L (4.30-5.90) m/uL Hgb 9.9 L (13.0-17.5) gm/dL Hct 28.2 L (39.0-53.0) % Plt Count 148 L (150-450) k/uL Chloride 108 H (98-107) mmol/L Creatinine 0.49 L (0.66-1.25) mg/dL Microbiology - Last 24 Hours (Table) 09/01/23 08:25 Blood Culture - Preliminary Blood 08/31/23 11:07 Gram Stain - Final Sputum Sputum Culture - Final Staphylococcus aureus Assessment and Plan Assessment: Right lower lobe pneumonia secondary to MSSA Metabolic/toxic encephalopathy. Altered mental status due to drug overdose and alcohol intoxication. Status post extubation and currently on BiPAP machine Polysubstance use with UDS positive for amphetamines, methamphetamines, cocaine and marijuana. Inability to protect airway requiring intubation and mechanical ventilation Lactic acidosis on admission. Improved Hepatitis C. Treatment history not known. Severe alcohol abuse Depression with prior history of suicide attempt Schizoaffective disorder Chronic back pain Currently everyday smoker Plan: Continue with Zosyn Continue with oxygen via nasal cannula continue with pain management and laxative pulmonary/critical care team followed closely Labs and medication were reviewed.. Continue same treatment. Continue with sym ptomatic treatment. Resume home medication. Monitor labs and vitals. DVT and GI prophylaxis. Further recommendations as per clinical course of the patient DVT prophylaxis: Subcutaneous heparin GI Prophylaxis: Ppi PT/OT: Pending Prognosis is guarded
--- NOTE | 2023-09-04 13:38 | P.PN ---
Subjective Progress Note Date: 09/04/23 Principal diagnosis: Respiratory failure, drug overdose. Reevaluated today 09/01/2023, patient remains in the ICU, intubated and mechanically ventilated. Patient is on assist control rate of 14 tidal volume 500 FiO2 40% and PEEP of 5 ABG showed a pO2 of 83 pCO2 47 pH of 7.39. Patient is still requiring significant amount of sedation otherwise he goes wild and condoms asynchronous with the ventilator. He is now on Versed at 3 mg/h fentanyl at 0.5 mcg/kg/h propofol 45 mcg/kg/m and he is on vital HP at 59 mL per hour. Chest x-ray is suspicious for left lower lobe atelectasis/possible pneumonia and endotracheal tube was noted to be a bit proximal it will be advanced about to see him down. CBC is relatively normal WBC count 7.1 hemoglobin is 9.8 electrolytes are normal, renal profile is normal, sputum cultures are nondiagnostic showing mostly normal respiratory deisi Patient was reevaluated today on 09/02/2023 remains in the ICU intubated and mechanically ventilated. The amount of sedation seems to be less over the last 24 hours, he is at least of Versed today. Remains on fentanyl at 0.5 mcg/kg/h he is also on propofol down to 35 mcg/kg/m, and he is receiving IV fluid 0.9 normal saline at 75 mL per hour is also on enteral feeding at 59 mL per hour. Remains on Zosyn empirically. He is on assist control rate of 14 tidal volume 500 FiO2 40% and PEEP of 5 ABG showed a pO2 of 82 beats pH of 7.45. Chest x-ray continues to show mostly bibasilar opacities/atelectasis left more so than right. My plan today is to cut down further on sedation, hopefully transition the patient to Precedex, and hopefully consider weaning trial if possible Patient was evaluated today on 09/03/2023, remains in the ICU, patient was weaned off mechanical ventilation yesterday, and he was given a trial of pressure support and CPAP, and he was extubated to BiPAP 12//60%. ABG this morning showed a pO2 of 301 pCO2 36 pH of 7.46 and recommended that we keep him on BiPAP for now. Chest x-ray is showing right lower lobe atelectasis, doubt pneumonia but it is not entirely ruled out nonetheless the patient remains empirically on Zosyn. Patient is quite lethargic and obtunded today, repeat ABG showed pO2 of 88 pCO2 of 40 pH of 7.43 and this was on 60% FiO2. Hence I rec ommended we cut down on his sedation to minimal patient was on Precedex until 8:00 this morning and this was discontinued he was given a 0.5 mg dose of Dilaudid IV push, and that seemed to help his anxiety and agitation earlier today seems to be actually working better than Precedex. Considering the repeat ABG seems to be reasonable, I have no plans to reintubate the patient unless it is felt necessary. However we need to cut down on sedation. WBC count today is 7.1 hemoglobin 10.6, renal profile is normal basic metabolic profile is normal. Sputum cultures have grown MSSA Progress note dated 09/04/2023. This is a 37-year-old male was admitted on August 28, with an episode of mental status changes, drug overdose, and alcohol intoxication. The patient had a very high alcohol level, and history was positive for methamphetamines, marijuana, and cocaine. The patient was intubated for respiratory failure on August 28, and finally extubated on September 03. The patient's currently on 2 L of oxygen and receiving saline at 75 mL an hour. Currently, white count of 7.2, hemoglobin 9.9, hematocrit 28.2, with a platelet count of 148,000. Sodium 139, potassium 3.6, chlorides 108, CO2 25, BUN 12, creatinine 0.49. Sputum showing evidence of Staphylococcus aureus, which is methicillin sensitive. Chest x-ray shows bilateral lower lobe infiltrates. Objective - Vital Signs Vital signs: Vital Signs Temp 99.1 F 09/04/23 12:00 Pulse 82 09/04/23 12:00 Resp 31 H 09/04/23 12:00 BP 142/64 09/04/23 12:00 Pulse Ox 93 L 09/04/23 12:00 FiO2 40 09/03/23 15:59 Intake & Output 09/03/23 09/04/23 09/04/23 18:59 06:59 18:59 Intake Total 1748.515 1250 156 Output Total 1790 1590 1650 Balance -577.66 -872 -2926 Weight 96.2 kg 96.2 kg Intake: IV 1114 1158 156 Magnesium Sulfate-D5w Pmx 100 1 gm In Dextrose/Water 1 100ml.bag @ 100 mls/hr IVPB ONCE ONE Rx#: [id number] Piperacillin-Tazobactam 3 100 .375 gm In Sodium Chloride 0.9% 100 ml @ 25 mls/hr IVPB Q8H [facility] Rx#: [id number] Potassium Chloride 10 meq 200 In Water For Injection 1 100ml.bag @ 100 mls/hr IVPB Q1H [facility] Rx#: [id number] Pressure bag 39 33 6 Sodium Chloride 0.9% 1, 975 825 150 000 ml @ 75 mls/hr IV . [id number] [facility] Rx#:[id number] Intake, IV Titration 8.332 Amount Dexmedetomidine/0.9% NaCl 8.332 (Pmx) 400 mcg In Empty Bag 1 bag @ 0.2 MCG/KG/HR 4.95 mls/hr IV .[id number] [facility] Rx#:[id number] Tube Feeding 90 Output: Urine 1790 1590 1650 Other: Voiding Method Indwelling Catheter Indwelling Catheter Indwelling Catheter # Bowel Movements 1 ABP, PAP, CO, CI - Last Documented Arterial Blood Pressure 132/90 - Exam No acute distress, oriented 3. Patient lethargic. He does arouse. HEENT examination is grossly unremarkable. Neck supple. Full range of motion. No adenopathy thyromegaly or neck vein distention. Cardiovascular examination reveals regular rhythm rate. S1-S2 normal. No S3 or S4. No discernible murmur noted. Heart rate 82 bpm. Heart sounds are distant. Lungs reveal scattered bilateral rhonchi. No wheezes or crackles. Breath thomas nds equal bilaterally. 2 L saturation only 92%. Abdomen soft bowel sounds are heard. No masses or tenderness. Extremities are intact. No cyanosis clubbing or edema. Skin is without rash or lesion. Neurologic examination is brief but nonfocal. - Labs CBC & Chem 7: 09/04/23 03:23 09/04/23 03:23 Labs: Abnormal Lab Results - Last 24 Hours (Table) 09/04/23 09/04/23 Range/Units 03:23 03:23 RBC 3.38 L (4.30-5.90) m/uL Hgb 9.9 L (13.0-17.5) gm/dL Hct 28.2 L (39.0-53.0) % Plt Count 148 L (150-450) k/uL Chloride 108 H (98-107) mmol/L Creatinine 0.49 L (0.66-1.25) mg/dL Microbiology - Last 24 Hours (Table) 09/01/23 08:25 Blood Culture - Preliminary Blood 08/31/23 11:07 Gram Stain - Final Sputum Sputum Culture - Final Staphylococcus aureus Assessment and Plan Assessment: Mental status changes, secondary to multiple drug overdose, requiring intubation, on August 28, and subsequent extubation on September 03. Acute alcohol intoxication. Polysubstance abuse. History of depression with previous suicidal attempt. Schizoaffective disorder. History of hepatitis C. Tobacco dependence syndrome. Probable aspiration pneumonia. Plan: Plan dated 09/04/2023. The patient was successfully extubated yesterday. His respiratory status remained somewhat tenuous. Chest x-ray shows bibasilar infiltrates. Sputum showed evidence of methicillin sensitive staph aureus. The patient's getting saline at 75 mL an hour. In addition, the patient's getting Zosyn for possible aspiration pneumonia. The patient's also receiving GI prophylaxis and DVT prophylaxis. Additional recommendations and suggestions are forthcoming. We will continue to follow the patient and make recommendations along the way. Time with Patient: Greater than 30
[2023-09-04 18:01] LABS: Glucose,Whole Blood 80 mg/dL (70-110)
[2023-09-04 23:56] LABS: Glucose,Whole Blood 79 mg/dL (70-110)
[2023-09-05] MEDS: DEXMEDETOMIDINE/0.9% NACL(PMX) 400 MCG in EMPTY BAG 1 BAG IV SCH (00:05)
[2023-09-05 00:16] LABS: Glucose,Whole Blood 95 mg/dL (70-110)
[2023-09-05] MEDS: HEPARIN SODIUM,PORCINE 5,000 UNIT/ML 1 ML VIAL SQ SCH ×2 (00:26→08:27)
[2023-09-05] MEDS: HYDROmorphone 0.5 MG/0.5 ML SYRINGE IVP PRN ×7 (00:26→13:05)
[2023-09-05] MEDS: LORazepam 2 MG/ML INJ IV PRN ×5 (01:17→12:08)
[2023-09-05 02:47] VITALS: BP 159/98; PULSE 86; RESP 17
[2023-09-05] MEDS: PIPERACILLIN-TAZOBACTAM 3.375 GM in SODIUM CHLORIDE 0.9% 100 ML IVPB SCH (03:46)
[2023-09-05] MEDS: SODIUM CHLORIDE 0.9% 1,000 ML IV SCH (03:47)
[2023-09-05 04:25] LABS: African American GFR (CKD) >90 (>60 ml/min/1.73 sqM); Anion Gap 11 mmol/L; Blood Urea Nitrogen 9 mg/dL (9-20); Calcium 8.6 mg/dL (8.4-10.2); Carbon Dioxide 19 mmol/L (22-30); Chloride 106 mmol/L (98-107); Glucose 82 mg/dL (74-99); Magnesium 1.7 mg/dL (1.6-2.3); Non-African American GFR(CKD) >90 (>60 ml/min/1.73 sqM); Potassium 3.1 mmol/L (3.5-5.1); Sodium 136 mmol/L (137-145)
[2023-09-05] MEDS: INSULIN ASPART (NovoLOG) 100 UNIT/ML VIAL SQ SCH ×3 (04:33→14:03)
[2023-09-05 04:36] LABS: Glucose,Whole Blood 85 mg/dL (70-110)
[2023-09-05 04:45] LABS: Basophils % (A) 0 %; Eosinophils # (A) 0.3 k/uL (0-0.7); Eosinophils % (A) 3 %; HCT 29.8 % (39.0-53.0); HGB 10.4 gm/dL (13.0-17.5); Lymphocytes # (A) 1.3 k/uL (1.0-4.8); Lymphocytes % (A) 17 %; MCH 28.1 pg (25.0-35.0); MCHC 34.8 g/dL (31.0-37.0); MCV 80.6 fL (80.0-100.0); Mean Platelet Volume 9.5; Monocytes # (A) 0.8 k/uL (0-1.0); Monocytes % (A) 10 %; Neutrophils # (A) 5.4 k/uL (1.3-7.7); Neutrophils % (A) 67 %; Platelet Count 172 k/uL (150-450); RDW 13.2 % (11.5-15.5)
[2023-09-05] MEDS: POTASSIUM CHLORIDE ER 20 MEQ TAB.ER PO SCH ×2 (06:19→06:20)
[2023-09-05] MEDS ORDERED: MAGNESIUM SULFATE-D5W PMX 1 GM in DEXTROSE/WATER 1 100ML.BAG IVPB ONE (08:00)
[2023-09-05] MEDS: PANTOPRAZOLE 40 MG/10 ML VIAL IV SCH (08:27)
--- NOTE | 2023-09-05 08:57 | XR ---
EXAMINATION TYPE: XR chest 1V portable DATE OF EXAM: 09/05/2023 COMPARISON: 09/04/2023 HISTORY: Abnormal x-ray TECHNIQUE: Single frontal view of the chest is obtained. FINDINGS: Interval improvement of right basilar infiltrate with stable left basilar infiltrate. Thor ax. Interstitial edema. Heart size normal. Osseous structures IMPRESSION: 1. Stable left lower lobe infiltrate. 2. Interval improvement in right basilar infiltrate.
[2023-09-05 09:22] VITALS: TEMP 98
[2023-09-05] MEDS: THIAMINE 100 MG/ML 2 ML VIAL IVP SCH (09:22)
--- NOTE | 2023-09-05 11:39 | P.PN ---
Subjective Progress Note Date: 09/05/23 Principal diagnosis: Respiratory failure, drug overdose. Reevaluated today 09/01/2023, patient remains in the ICU, intubated and mechanically ventilated. Patient is on assist control rate of 14 tidal volume 500 FiO2 40% and PEEP of 5 ABG showed a pO2 of 83 pCO2 47 pH of 7.39. Patient is still requiring significant amount of sedation otherwise he goes wild and condoms asynchronous with the ventilator. He is now on Versed at 3 mg/h fentanyl at 0.5 mcg/kg/h propofol 45 mcg/kg/m and he is on vital HP at 59 mL per hour. Chest x-ray is suspicious for left lower lobe atelectasis/possible pneumonia and endotracheal tube was noted to be a bit proximal it will be advanced about to see him down. CBC is relatively normal WBC count 7.1 hemoglobin is 9.8 electrolytes are normal, renal profile is normal, sputum cultures are nondiagnostic showing mostly normal respiratory deisi Patient was reevaluated today on 09/02/2023 remains in the ICU intubated and mechanically ventilated. The amount of sedation seems to be less over the last 24 hours, he is at least of Versed today. Remains on fentanyl at 0.5 mcg/kg/h he is also on propofol down to 35 mcg/kg/m, and he is receiving IV fluid 0.9 normal saline at 75 mL per hour is also on enteral feeding at 59 mL per hour. Remains on Zosyn empirically. He is on assist control rate of 14 tidal volume 500 FiO2 40% and PEEP of 5 ABG showed a pO2 of 82 beats pH of 7.45. Chest x-ray continues to show mostly bibasilar opacities/atelectasis left more so than right. My plan today is to cut down further on sedation, hopefully transition the patient to Precedex, and hopefully consider weaning trial if possible Patient was evaluated today on 09/03/2023, remains in the ICU, patient was weaned off mechanical ventilation yesterday, and he was given a trial of pressure support and CPAP, and he was extubated to BiPAP 12//60%. ABG this morning showed a pO2 of 301 pCO2 36 pH of 7.46 and recommended that we keep him on BiPAP for now. Chest x-ray is showing right lower lobe atelectasis, doubt pneumonia but it is not entirely ruled out nonetheless the patient remains empirically on Zosyn. Patient is quite lethargic and obtunded today, repeat ABG showed pO2 of 88 pCO2 of 40 pH of 7.43 and this was on 60% FiO2. Hence I rec ommended we cut down on his sedation to minimal patient was on Precedex until 8:00 this morning and this was discontinued he was given a 0.5 mg dose of Dilaudid IV push, and that seemed to help his anxiety and agitation earlier today seems to be actually working better than Precedex. Considering the repeat ABG seems to be reasonable, I have no plans to reintubate the patient unless it is felt necessary. However we need to cut down on sedation. WBC count today is 7.1 hemoglobin 10.6, renal profile is normal basic metabolic profile is normal. Sputum cultures have grown MSSA Progress note dated 09/04/2023. This is a 37-year-old male was admitted on August 28, with an episode of mental status changes, drug overdose, and alcohol intoxication. The patient had a very high alcohol level, and history was positive for methamphetamines, marijuana, and cocaine. The patient was intubated for respiratory failure on August 28, and finally extubated on September 03. The patient's currently on 2 L of oxygen and receiving saline at 75 mL an hour. Currently, white count of 7.2, hemoglobin 9.9, hematocrit 28.2, with a platelet count of 148,000. Sodium 139, potassium 3.6, chlorides 108, CO2 25, BUN 12, creatinine 0.49. Sputum showing evidence of Staphylococcus aureus, which is methicillin sensitive. Chest x-ray shows bilateral lower lobe infiltrates. Progress note dated 09/05/2023. 37-year-old male, admitted on August 28, with an episode of mental status changes, drug overdose, and alcohol intoxication. The patient's drug screen was positive for methamphetamines, marijuana, and cocaine. The patient was intubated for respiratory failure on August 28, excessively extubated on September 03. Currently, he's on room air, and no IV fluids. He is actually roaming the hallway, asking to be discharged home. White count is 8, hemoglobin 10.4, hematocrit 29.8, and platelet count 172,000. Sodium 136, potassium 3.1, chloride 106, CO2 19, BUN 9, creatinine 0.49. Sputum was positive for methicillin sensitive staph aureus. Asked x-ray shows a minimal left lower lobe infiltrate. Right basilar infiltrates much improved. Objective - Vital Signs Vital signs: Vital Signs Temp 98 F 09/05/23 08:00 Pulse 86 09/05/23 02:00 Resp 17 09/05/23 08:00 BP 159/98 09/05/23 02:00 Pulse Ox 98 09/05/23 09:29 FiO2 40 09/03/23 15:59 Intake & Output 09/04/23 09/05/23 09/05/23 18:59 06:59 18:59 Intake Total 156 175 Output Total 2850 1625 Balance -8967 -5435 Weight 96.2 kg 81.3 kg Intake: IV 156 175 Piperacillin-Tazobactam 3 100 .375 gm In Sodium Chloride 0.9% 100 ml @ 25 mls/hr IVPB Q8H [facility] Rx#: [id number] Pressure bag 6 Sodium Chloride 0.9% 1, 150 75 000 ml @ 75 mls/hr IV . [id number] [facility] Rx#:[id number] Output: Urine 2850 1625 Other: Voiding Method Indwelling Catheter Indwelling Catheter Indwelling Catheter # Voids 1 ABP, PAP, CO, CI - Last Documented Arterial Blood Pressure 132/90 - Exam No acute distress, oriented 3. Patient lethargic. The patient is very shaky today. HEENT examination is grossly unremarkable. Neck supple. Full range of motion. No adenopathy thyromegaly or neck vein distention. Cardiovascular examination reveals regular rhythm rate. S1-S2 normal. No S3 or S4. No discernible murmur noted. Heart rate 86 bpm. Heart sounds are distant. Lungs reveal scattered bilateral rhonchi. No wheezes or crackles. Breath sounds equal bilaterally. Saturation on room air is 98%. Abdomen soft bowel sounds are heard. No masses or tenderness. Extremities are intact. No cyanosis clubbing or edema. Skin is without rash or lesion. Neurologic examination is brief but nonfocal. - Labs CBC & Chem 7: 09/05/23 04:36 09/05/23 03:51 Labs: Abnormal Lab Results - Last 24 Hours (Table) 09/05/23 09/05/23 Range/Units 03:51 04:36 RBC 3.70 L (4.30-5.90) m/uL Hgb 10.4 L (13.0-17.5) gm/dL Hct 29.8 L (39.0-53.0) % Sodium 136 L (137-145) mmol/L Potassium 3.1 L (3.5-5.1) mmol/L Carbon Dioxide 19 L (22-30) mmol/L Creatinine 0.49 L (0.66-1.25) mg/dL Microbiology - Last 24 Hours (Table) 09/01/23 08:25 Blood Culture - Preliminary Blood Assessment and Plan Assessment: Mental status changes, secondary to multiple drug overdose, requiring intubation, on August 28, and subsequent extubation on September 03. Acute alcohol intoxication. Polysubstance abuse. History of depression with previous suicidal attempt. Schizoaffective disorder. History of hepatitis C. Tobacco dependence syndrome. Probable aspiration pneumonia. Plan: Plan dated 09/04/2023. The patient was successfully extubated yesterday. His respiratory status remained somewhat tenuous. Chest x-ray shows bibasilar infiltrates. Sputum showed evidence of methicillin sensitive staph aureus. The patient's getting saline at 75 mL an hour. In addition, the patient's getting Zosyn for possible aspiration pneumonia. The patient's also receiving GI prophylaxis and DVT prophylaxis. Additional recommendations and suggestions are forthcoming. We will continue to follow the patient and make recommendations along the way. Plan dated 09/05/2023. The patient is seen today, room in the hallways, outside of his room, 264. He is currently on room air, and no IV fluids. Discharge planning is underway. The patient himself wants to be discharged home. We will have psychiatry see him before discharge, to make sure it's safe. Additional recommendations and suggestions are forthcoming. Labs, x-rays, and medications are all reviewed. Time with Patient: Less than 30
[2023-09-05 12:51] LABS: Glucose,Whole Blood 90 mg/dL (70-110)
[2023-09-05] MEDS ORDERED: HALOPERIDOL DECANOATE 100 MG/ML 1 ML VIAL IM SCH (13:30)
--- NOTE | 2023-09-05 13:47 | P.CN ---
Psychiatric Consult - . Consult date: 09/05/23 Consult:: 09/05/23 13:05 IDENTIFYING DATA: Patient is a single, homeless, 37-year-old male with a significant history of schizoaffective disorder and polysubstance abuse, homeless HPI: Patient presented to the hospital on on 08/28 via EMS. According to ER report patient was apparently found beside a jewish and was unresponsive, it was possible that this was a drug overdose. Patient was brought into the hospital. Patient has a history of several inpatient psychiatric along with medical admissions for substance abuse issues and also schizoaffective disorder. Patient also follows up with Dr. Edouard at [facility]. Patient receives biweekly Haldol Decanoate injections. The patient had a blood alcohol level for 472 on admission. His urine drug screen is positive for amphetamines, methamphetamine, cocaine and THC. The patient was admitted to the ICU, intubated and had respiratory failure. Patient was also appeared to have pneumonia and has been treated by antibiotics. Patient was treated for alcohol withdrawal on the in the ICU. Patient was seen today and agreeable to speak a commercial real estate underwriter. The patient was mildly tremulous, however was directable. He was fairly concrete. He states that he "drank too much" and states that he was drinking about 1-1/2 pints of whiskey before coming into the hospital. He states that he has been going through withdrawals harbors feeling better today. He was fairly superficial, continues to have chronically poor insight into his condition. He states that his mood and anxiety are "fine". He does not report to a suicide attempt and states that he was just using drugs. He was fairly evasive and superficial with the drugs he was using. He was fairly focused on discharge. We spoke about the long-acting injection which she is agreeable to take today. She also states that he has a friend that he is living with and would like to go there, states that he wants to follow-up at [facility] tomorrow. He does not report any significant signs or symptoms of ronald or hypomania. The patient does not report any auditory or visual hallucinations. He denies any paranoia or other delusions. PAST PSYCHIATRIC HISTORY: Patient has a history of schizoaffective disorder and polysubstance abuse. Last admitted onto our psychiatric unit in June 2023. He has been on several mental health treatment orders in the past. He is on Haldol Decanoate 200 mg IM every 2 weeks, he will be due for his next injection today. Past meds include Effexor and Vistaril, BuSpar. The patient has had numerous psychiatric hospitalizations. He is open with [facility] and sees Dr Edouard. Has had multiple attempts at suicide by overdose in the past. PMH: Past Medical History: No Reported History, Unable to Obtain, GERD/Reflux, Hypertension, Liver Disease Additional Past Medical History / Comment(s): Hepatitis C, DDD, back pain, bilateral carpel tunnel syndrome. He reports that he has heart disease that was found when he had kidney problems but he denies having a stress test or cardiac catheterization. History of Any Multi-Drug Resistant Organisms: None Reported MDRO Source:: unknown Past Surgical History: No Surgical Hx Reported, Unable to Obtain Additional Past Surgical History / Comment(s): Pt states he has had numerous "cysts" removed from where he injected IV drugs. Past Anesthesia/Blood Transfusion Reactions: No Reported Reaction, Unable to Obtain Additional Past Anesthesia/Blood Transfusion Reaction / Comment(s): Pt states he has never had surgery. Past Psychological History: Anxiety, Bipolar, Depression, Schizophrenia Smoking Status: Current every day smoker ALLERGIES: NO KNOWN DRUG ALLERGIES CHEMICAL DEPENDENCY HISTORY: The patient admits to using all substances, please refer to HPI. FAMILY PSYCHIATRIC/SUBSTANCE USE HISTORY: No reported family psychiatric history. SOCIAL HISTORY: Patient is currently homeless. He is . He has his GED. MENTAL STATUS EXAM: General Appearance: Patient appears to be mildly shaking, stated age is alert, directable, and superficially cooperative. Patient appears to have very disheveled hygiene and grooming. Behavior: Patient is lying down in bed without any agitated behavior. Speech: Patient's speech is fluent and nonpressured. Monotone. Nonspontaneous. Mood/Affect: Patient reports their mood is "ok", affect is congruent and flat. Suicidality/Homicidality: Patient reports suicidal ideation. He denies any homicidal ideation. Perceptions: Patient denies any visual hallucinations and denies any auditory hallucinations Though content/process: There is no evidence of any delusional thought content and thought process is linear. focused on discharge. superficial. Memory and concentration: AOX3, grossly intact for the purposes of this session. Can spell "WORLD" backwards Judgment and insight: chronically poor IMPRESSIONS: drug overdose Schizoaffective disorder, depressive type Methamphetamine use disorder Cocaine use disorder Cannabis use disorder Alcohol use disorder nicotine dependence Homeless PLAN: -At this time patient DOES NOT meet criteria for inpatient psychiatric admission. -Would recommend the following medication changes/additions: please attempt to limit controlled medications due to patient being med seeking and having a hx of abuse. commercial real estate underwriter spoke with patients outpatient psychaitrist Dr Edouard and agreed on the plan to give Haldol Dec 200 mg IM today and next dose will be due in 2 weeks. -Childcare Center Administrator spoke with patient about substance abuse and the harmful effects on medical and mental health, patient verbally understood and agreed. -caustic plant worker to provide patient substance use treatment resources including AA/NA meetings in the community. -caustic plant worker to provide patient with access line number to call for inpatient substance rehab -Communicated plan to patient's nurse and SW -Psychiatry will sign off at this time, patient can continue f/u with [facility]. -Please contact with any questions. 09/05/23 13:06 09/05/23 13:40
[2023-09-05] MEDS: HALOPERIDOL DECANOATE 100 MG/ML 1 ML VIAL IM STA ×2 (13:56→13:57)
--- NOTE | 2023-09-05 20:18 | P.DS ---
Providers Date of admission: 08/28/23 19:50 Expected date of discharge: 09/05/23 Attending physician: Abelardo Potts Consults: 08/28/23 19:50 Consult Physician Stat Consulting Provider: Leila Morin Reason/Comments: critical care Do you want consulting provider notified?: Already Contacted Primary care physician: Stated None Hospital Course: Final diagnosis Right lower lobe pneumonia secondary to MSSA, probable aspiration pneumonia with staph aureus in the cultures Metabolic/toxic encephalopathy. Altered mental status due to drug overdose and alcohol intoxication. Status post extubation Polysubstance use with UDS positive for amphetamines, methamphetamines, cocaine and marijuana. Inability to protect airway requiring intubation and mechanical ventilation, im proved currently on room air Lactic acidosis on admission. Improved Hepatitis C. Treatment history not known. Severe alcohol abuse Depression with prior history of suicide attempt Schizoaffective disorder Chronic back pain Currently everyday smoker Discharge disposition Patient is being discharged in a stable condition with guarded prognosis to home and has legal guardian. Patient to establish with primary care provider in the outpatient setting upon discharge. Patient is to continue with oral Augmentin and close outpatient follow-up with [facility] as scheduled. Total time taken is greater than 35 minutes. Hospital course This is a 37-year-old male who was recently admitted with acute altered mental status due to drug overdose and alcohol intoxication requiring intubation with inability to protect his own airway maintained in ICU for a prolonged hospitalization. Patient also with likely aspiration pneumonia with sputum culture showing staph aureus with some sensitivities. Patient was continued on IV antibiotics with pulmonary infectious disease following and was successfully extubated maintained on room air. Patient will continue oral Augmentin twice daily on discharge. Patient is high risk for readmissions and has had frequent ED visits due to significant noncompliance, poor failure to follow-up outpatient, continued drug and alcohol abuse. Patient was seen and evaluated by psychiatry prior to discharge and has been cleared for outpatient follow-up with [facility]. Guardian is aware patient is leaving as he was adamant on being discharged today. Patient was maintained on CIWA protocol and has not required Ativan for CIWA. Patient is not actively withdrawing. Patient cleared by consultations for discharge. Please refer to consultation notes for full HPI. Patient did receive his every 2 week IM Haldol prior to discharge. Currently no reports of chest pain, shortness of breath, or palpitations. Patient is afebrile. No reports of nausea or vomiting and patient is tolerating diet. Patient will be discharged home with resources provided for outpatient shelters and to follow-up with [facility] along with his guardian on discharge. Patient is extremely high risk for readmission as mentioned previously. Patient denies any suicidal or homicidal ideation and reports has no intent to quit using illicit drugs and drinking. Physical exam: Gen: This is a 37 year old male is awake, alert and oriented 3, well-developed, ill-appearing, unkempt HEENT: Head is atraumatic, normocephalic. Pupils equal, round. Sclerae is anicteric. NECK: Supple. No JVD. No lymphadenopathy. No thyromegaly. LUNGS: Diminished breath sounds bilaterally with some scattered rhonchi. No intercostal retractions. HEART: Regular rate and rhythm. No murmur. ABDOMEN: Soft. Bowel sounds are present. No masses. No tenderness. EXTREMITIES: No pedal edema. No calf tenderness. NEUROLOGICAL: Patient is awake, alert and oriented x3. Cranial nerves 2 through 12 are grossly intact. Anxious. Please refer to medication reconciliation sheet for a list of medications. The impression and plan of care has been dictated by Marlena Roque, Nurse Practitioner as directed. Dr. jyotsna MD I have performed a history and examination and MDM of this patient, discussed the same with the dictator, and agree with the dictator's assessment and plan as written ,documented as a scribe. Based on total visit time, I have performed more than 50% of the visit. Patient Condition at Discharge: Poor Plan - Discharge Summary Discharge Rx Participant: Yes New Discharge Prescriptions: New Amoxic-Pot Clav 875-125Mg [Augmentin 875-125] 1 each PO Q12HR 10 Days #20 tab Continue Haloperidol Decanoate [Haldol D] 200 mg IM Q14D 1 Days #1 each Discharge Medication List Haloperidol Decanoate [Haldol D] 200 mg IM Q14D 1 Days #1 each 07/10/23 [Rx] Amoxic-Pot Clav 875-125Mg [Augmentin 875-125] 1 each PO Q12HR 10 Days #20 tab 09/05/23 [Rx] Follow up Appointment(s)/Referral(s): None,Stated [Primary Care Provider] - 1-2 days Activity/Diet/Wound Care/Special Instructions: Activity Limited until follow-up Follow-up and establish with primary care provider outpatient Continue with [facility] patient Strongly recommend avoiding alcohol and drug use Discharge Disposition: LEFT AGAINST MEDICAL ADVICE
[2023-09-05] MEDS ORDERED: AMOXIC-POT CLAV 875-125MG 1 EACH TAB PO SCH (21:00)
--- NOTE | 2023-09-07 13:14 | CDI ---
Documentation Clarification Form Date: 09/07/23 From: Petra Blas Admit Date: 08/28/2023 07:50:00 PM Patient Name: Wilbert Rosetnhal Visit Number: [id number] Discharge Date: 09/05/2023 02:00:00 PM ATTENTION: The Clinical Documentation Specialists (CDI) and [facility] Coding Staff appreciate your assistance in clarifying documentation. Please respond to the clarification below the line at the bottom and electronically sign. The CDI & [facility] Coding staff will review the response and follow-up if needed. Please note: Queries are made part of the Legal Health Record. If you have any questions, please contact the author of this message via ITS. Dr. Maroi York, Your patient has respiratory failure with hypoxia per 08/31 progress note. Based on this information and the findings below, is there an additional diagnosis that is clinically appropriate for this patient? History/Risk Factors: multiple drug abuses, alcohol dependence, smoker Clinical Indicators: Presented after drug overdose with altered mental status, found unconscious, given Narcan intranasal x 2 without much improvemet. Intubated with mechanical ventilation. Vital signs: T 96.5, P 98, R 16, BP 146/110 Pulse oximetry: 98 on non-rebreather 08/28 ABG/CBG: pH 7.41 pO2 >400 pCO2 36 Lactate 2.8/3.1 Vent/BiPap: On vent for 4 days Is there an additional diagnosis that is clinically appropriate for this patient? [ x] Acute Hypoxic Respiratory Failure (pO2 <60 mm Hg or SpO2 <91% on room air) [ ] Other Diagnosis, please specify [ ] Unable to determine MTDD
== END 2023-09-05 14:00 | disposition left against medical advice (07) | DRG 812 ==
LOC: EDBD → MERGE 15:30 → EC 15:30 → 2SICU 19:50
PROVIDERS: ADMIT Hospitalist; ATTEND Hospitalist
PROC: 06HY33Z Insertion of Infusion Device into Lower Vein, Percutaneous Approach (ICD-10-PCS; principal; 2023-08-28)
PROC: 5A1955Z Respiratory Ventilation, Greater than 96 Consecutive Hours (ICD-10-PCS; principal; 2023-08-28)
PROC: 0BH17EZ Insertion of Endotracheal Airway into Trachea, Via Natural or Artificial Opening (ICD-10-PCS; principal; 2023-08-28)
PROC: 4A133B1 Monitoring of Arterial Pressure, Peripheral, Percutaneous Approach (ICD-10-PCS; 2023-08-29)
PROC: 03HY32Z Insertion of Monitoring Device into Upper Artery, Percutaneous Approach (ICD-10-PCS; 2023-08-29)
PROC: 4A133J1 Monitoring of Arterial Pulse, Peripheral, Percutaneous Approach (ICD-10-PCS; 2023-08-29)
DX: T50.901A Poisoning by unspecified drugs, medicaments and biological substances, accidental (unintentional), initial encounter (principal); J96.21 Acute and chronic respiratory failure with hypoxia; G92.8 Other toxic encephalopathy; J69.0 Pneumonitis due to inhalation of food and vomit; J90 Pleural effusion, not elsewhere classified; J15.211 Pneumonia due to Methicillin susceptible Staphylococcus aureus; E87.20 Acidosis, unspecified; F25.1 Schizoaffective disorder, depressive type; F10.229 Alcohol dependence with intoxication, unspecified; F10.239 Alcohol dependence with withdrawal, unspecified; F14.10 Cocaine abuse, uncomplicated; F15.10 Other stimulant abuse, uncomplicated; F12.10 Cannabis abuse, uncomplicated; F17.210 Nicotine dependence, cigarettes, uncomplicated; B19.20 Unspecified viral hepatitis C without hepatic coma; G89.29 Other chronic pain; M54.9 Dorsalgia, unspecified; I10 Essential (primary) hypertension; J98.11 Atelectasis; K21.9 Gastro-esophageal reflux disease without esophagitis; K76.9 Liver disease, unspecified; L98.9 Disorder of the skin and subcutaneous tissue, unspecified; F41.9 Anxiety disorder, unspecified; D64.9 Anemia, unspecified; Y90.8 Blood alcohol level of 240 mg/100 ml or more; Z53.29 Procedure and treatment not carried out because of patient's decision for other reasons; Z79.899 Other long term (current) drug therapy; Z78.1 Physical restraint status; Z91.51 Personal history of suicidal behavior; Z59.6 Low income; Z59.00 Homelessness unspecified
CPT/HCPCS: 31500; 36415; 36556; 36600; 70450; 71045; 72125; 80048; 80053; 80143; 80173; 80179; 80306; 80320; 81003; 82805; 83605; 83735; 84100; 84132; 84484; 85025; 85027; 85610; 85730; 87040; 87070; 87077; 87186; 87205; 93005; 94002; 94003; 94660; 96374; 96375; 99291

== ENCOUNTER 2023-09-07 15:50 | Emergency (ER) | payer OTHER ==
[2023-09-07 16:07] VITALS: RESP 18; TEMP 98.2
[2023-09-07] MEDS ORDERED: LORazepam 0.5 MG TAB PO STA (16:14)
--- NOTE | 2023-09-07 16:28 | ED ---
General Adult HPI - General Chief complaint: Psychiatric Symptoms Stated complaint: Mental health Time Seen by Provider: 09/07/23 16:01 Source: patient, EMS, RN notes reviewed, old records reviewed Mode of arrival: EMS Limitations: no limitations - History of Present Illness Initial comments: Patient is a 37 her old male who presents emergency department for psychiatric evaluation. Has a history of psychiatric illness. States that last week he has been having increasing auditory is full himself. States he is having suicidal ideations but no plans or attempts. Also states he is having homicidal ideations but no plans or attempts. Denies any visual hallucinations. Does endorse drinking 2 beers last night as well as taking 1 Percocet been no other drugs other than marijuana. States he did receive/out of Haldol but otherwise is on no oral medications. Denies any other acute complaints at this time. Presents for psychiatric evaluation. - Related Data Previous Rx's Medication Instructions Recorded Haloperidol Decanoate [Haldol D] 200 mg IM Q14D 1 Days #1 each 07/10/23 Amoxic-Pot Clav 875-125Mg 1 each PO Q12HR 10 Days #20 tab 09/05/23 [Augmentin 875-125] LORazepam [Ativan] 0.5 mg PO DAILY PRN 3 Days #3 tab 09/07/23 Allergies Allergy/AdvReac Type Severity Reaction Status Date / Time No Known Allergies Allergy Verified 09/05/23 19:47 Review of Systems ROS Statement: Those systems with pertinent positive or pertinent negative responses have been documented in the HPI. Review of Systems: CONST: Denies fever EYES: Denies blurry vision ENT: Denies nasal congestion C/V: Denies Chest pain RESP: Denies shortness of breath GI: Denies abdominal pain : Denies dysuria SKIN: Denies rash. MSK: Denies joint pain. NEURO: Denies headache PSYCH: Denies homicidal ideations/plans/attempts. Denies visual hallucinations. He endorses auditory hallucinations. He endorses suicidal ideations. Denies suicidal plans or attempts. ROS Other: All systems not noted in ROS Statement are negative. Past Medical History Past Medical History: GERD/Reflux, Hypertension, Liver Disease, Skin Disorder Additional Past Medical History / Comment(s): Hepatitis C, Pancreatitis, DDD, back pain, bilateral carpel tunnel syndrome. In the past has reported that he has heart disease that was found when he had kidney problems but he denies having a stress test or cardiac catheterization. History of Any Multi-Drug Resistant Organisms: None Reported MDRO Source:: unknown Past Surgical History: No Surgical Hx Reported, Unable to Obtain Additional Past Surgical History / Comment(s): Pt states he has had numerous "cysts" removed from where he injected IV drugs. Past Anesthesia/Blood Transfusion Reactions: No Reported Reaction, Unable to Obtain Additional Past Anesthesia/Blood Transfusion Reaction / Comment(s): In the past pt reported that he has never had surgery Past Psychological History: Anxiety, Bipolar, Depression, Schizophrenia Smoking Status: Current every day smoker Past Alcohol Use History: Abuse Past Drug Use History: Marijuana, Methamphetamine, Opiates - Past Family History Mother Family Medical History: Unable to Obtain, Rheumatoid Arthritis (RA) Additional Family Medical History / Comment(s): Mother is . Father Family Medical History: Coronary Artery Disease (CAD) General Exam - General Exam Comments Initial Comments: General: Appears in no acute distress. Somewhat disheveled. Appears anxious. No tremors. HEAD: Normal with no signs of head trauma. EYES: PERRLA, EOMI, conjunctiva normal, no discharge. Pupils 2 mm and equal bilaterally. ENT: Hearing grossly intact, normal oropharynx. RESPIRATORY: Clear breath sounds bilaterally. No wheezes, rales, or rhonchi. C/V: Regular rate and rhythm. S1 and S2 auscultated, peripheral pulses 2+ and intact throughout ABD: Abd is soft, nontender, nondistended EXT: Normal range of motion, no obvious deformity SKIN: No rashes or lesions observed on exposed skin. NEURO: Alert and oriented 4. Limitations: no limitations Course Vital Signs 09/07/23 15:53 Temperature 98.2 F Pulse Rate 61 Respiratory 18 Rate Blood Pressure 129/77 O2 Sat by Pulse 99 Oximetry Medical Decision Making - Medical Decision Making Was pt. sent in by a medical professional or institution (, PA, PAYROLL PROCESSOR, urgent care, hospital, or fpc...) When possible be specific @ -No Did you speak to anyone other than the patient for history (EMS, parent, family, police, friend...)? What history was obtained from this source @ -No Did you review nursing and triage notes (agree or disagree)? Why? @ -I reviewed and agree with nursing and triage notes Were old charts reviewed (outside hosp., previous admission, EMS record, old EKG, old radiological studies, urgent care reports/EKG's, fpc records)? Report findings @ -Old charts reviewed. Differential Diagnosis (chest pain, altered mental status, abdominal pain women, abdominal pain men, vaginal bleeding, weakness, fever, dyspnea, syncope, headache, dizziness, GI bleed, back pain, seizure, CVA, palpatations, mental health, musculoskeletal)? @ -Differential Mental Health Depression, anxiety, bipolar, psychosis, schizophrenia, borderline personality, situational depression, adjustment disorder, behavioral disorder, brain tumor, malingering, substance abuse, encephalopathy, medication reaction, dementia, hypothyroidism, degenerative neurologic disorder, lupus.... This is not meant to be all-inclusive list EKG interpreted by me (3pts min.). @ -None done X-rays interpreted by me (1pt min.). @ -None done CT interpreted by me (1pt min.). @ -None done U/S interpreted by me (1pt. min.). @ -None done What testing was considered but not performed or refused? (CT, X-rays, U/S, labs)? Why? @ -None What meds were considered but not given or refused? Why? @ -None Did you discuss the management of the patient with other professionals (professionals i.e. , PA, PAYROLL PROCESSOR, lab, RT, psych nurse, manager social media, military lawyer, teacher, access control officer, child welfare caseworker)? Give summary @ -EPS notified consult. Was smoking cessation discussed for >3mins.? @ -No Was critical care preformed (if so, how long)? @ -No Were there social determinants of health that impacted care today? How? (Homelessness, low income, unemployed, alcoholism, drug addiction, transportation, low edu. Level, literacy, decrease access to med. care, custodial, rehab)? @ -No Was there de-escalation of care discussed even if they declined (Discuss DNR or withdrawal of care, Hospice)? DNR status @ -No What co-morbidities impacted this encounter? (DM, HTN, Smoking, COPD, CAD, Cancer, CVA, ARF, Chemo, Hep., AIDS, mental health diagnosis, sleep apnea, morbid obesity)? @ -None Was patient admitted / discharged? Hospital course, mention meds given and route, prescriptions, significant lab abnormalities, going to OR and other pertinent info. @ -Based on the patient's presentation and physical exam, I believe he requires mental health evaluation. He was placed in green scrubs. Sitter ordered. Suicide precautions ordered. Patient is given a small dose of oral Ativan. BAT is 0.057. UDS is pending. Vital signs within acceptable limits. Patient is medically cleared for evaluation by psychiatry. Disposition is pending psychiatric evaluation. EPS was notified consult. Patient evaluated by EPS and determined that he meets criteria for discharge home.Patient does not meet inpatient psychiatric criteria. He will be given a short course prescription of Ativan for home. They were in agreement this plan. Strict return precautions discussed. Safety plan provided. Undiagnosed new problem with uncertain prognosis? @ -No Drug Therapy requiring intensive monitoring for toxicity (Heparin, Nitro, Insulin, Cardizem)? @ -No Were any procedures done? @ -No Diagnosis/symptom? @ -Encounter for psychiatric evaluation, auditory hallucinations Acute, or Chronic, or Acute on Chronic? @ -Acute Uncomplicated (without systemic symptoms) or Complicated (systemic symptoms)? @ -Uncomplicated Side effects of treatment? @ -No Exacerbation, Progression, or Severe Exacerbation? @ -No Poses a threat to life or bodily function? How? (Chest pain, [place], [place], pneumonia, PE, COPD, DKA, ARF, appy, cholecystitis, CVA, Diverticulitis, Homicidal, Suicidal, threat to staff... and all critical care pts) @ -Possibly yes Disposition Clinical Impression: Encounter for psychological evaluation, Auditory hallucinations Disposition: HOME SELF-CARE Condition: Good Additional Instructions: follow safety plan Prescriptions: LORazepam [Ativan] 0.5 mg PO DAILY PRN 3 Days #3 tab PRN Reason: Anxiety Is patient prescribed a controlled substance at d/c from ED?: Yes When asked, does pt state using other controlled substances?: No If prescribed controlled substance>3 days was MAPS reviewed?: Prescribed <3 Days Referrals: None,Stated [Primary Care Provider] - 1-2 days Time of Disposition: 17:25
[2023-09-07] MEDS ORDERED: NICOTINE 7MG/24HR PATCH TRANSDERM STA (16:32)
[2023-09-07] MEDS ORDERED: LORazepam 1 MG TAB PO STA (17:34)
[2023-09-07 18:03] VITALS: BP 156/98; PULSE 82
== END 2023-09-07 18:19 | disposition home or self-care (01) ==
LOC: EC 15:50
DX: R44.0 Auditory hallucinations (principal); Z00.8 Encounter for other general examination; I10 Essential (primary) hypertension; F17.200 Nicotine dependence, unspecified, uncomplicated; F12.90 Cannabis use, unspecified, uncomplicated; F15.90 Other stimulant use, unspecified, uncomplicated; Z86.59 Personal history of other mental and behavioral disorders
CPT/HCPCS: 82075; 99285; S4990

== ENCOUNTER 2023-09-08 10:09 | Emergency (ER) | payer OTHER ==
[2023-09-08 10:20] VITALS: BP 139/85; PULSE 86; RESP 16; TEMP 98
--- NOTE | 2023-09-08 11:21 | ED ---
Psych HPI - General Chief Complaint: Psychiatric Symptoms Stated Complaint: mental health Time Seen by Provider: 09/08/23 10:46 Source: patient Mode of arrival: ambulatory - History of Present Illness Initial Comments: Patient is a 37-year-old male who presents the emergency department for psychiatric evaluation. Patient had an evaluation yesterday in the emergency department states the voices are getting worse telling him to hurt himself. He has plan to overdose or cut himself. He denies homicidal ideation. Denies alcohol and drug use. Patient has no other concerns at this time including fever, chills, headache, shortness of breath, cough, chest pain, abdominal pain, nausea, vomiting, diarrhea, and burning with urination. - Related Data Previous Rx's Medication Instructions Recorded Haloperidol Decanoate [Haldol D] 200 mg IM Q14D 1 Days #1 each 07/10/23 Amoxic-Pot Clav 875-125Mg 1 each PO Q12HR 10 Days #20 tab 09/05/23 [Augmentin 875-125] LORazepam [Ativan] 0.5 mg PO DAILY PRN 3 Days #3 tab 09/07/23 Allergies Allergy/AdvReac Type Severity Reaction Status Date / Time No Known Allergies Allergy Verified 09/08/23 10:15 Review of Systems ROS Statement: Those systems with pertinent positive or pertinent negative responses have been documented in the HPI. ROS Other: All systems not noted in ROS Statement are negative. Past Medical History Past Medical History: GERD/Reflux, Hypertension, Liver Disease, Skin Disorder Additional Past Medical History / Comment(s): Hepatitis C, Pancreatitis, DDD, back pain, bilateral carpel tunnel syndrome. In the past has reported that he has heart disease that was found when he had kidney problems but he denies having a stress test or cardiac catheterization. History of Any Multi-Drug Resistant Organisms: None Reported MDRO Source:: unknown Past Surgical History: No Surgical Hx Reported, Unable to Obtain Additional Past Surgical History / Comment(s): Pt states he has had numerous "cysts" removed from where he injected IV drugs. Past Anesthesia/Blood Transfusion Reactions: No Reported Reaction, Unable to Obtain Additional Past Anesthesia/Blood Transfusion Reaction / Comment(s): In the past pt reported that he has never had surgery Past Psychological History: Anxiety, Bipolar, Depression, Schizophrenia Smoking Status: Current every day smoker Past Alcohol Use History: Abuse Past Drug Use History: Marijuana, Methamphetamine, Opiates - Past Family History Mother Family Medical History: Unable to Obtain, Rheumatoid Arthritis (RA) Additional Family Medical History / Comment(s): Mother is . Father Family Medical History: Coronary Artery Disease (CAD) General Exam Limitations: no limitations General appearance: alert, anxious Eye exam: Present: normal appearance, PERRL, EOMI. Absent: scleral icterus, conjunctival injection, periorbital swelling Respiratory exam: Present: normal lung sounds bilaterally. Absent: respiratory distress, wheezes, rales, rhonchi, stridor Cardiovascular Exam: Present: regular rate, normal rhythm, normal heart sounds. Absent: systolic murmur, diastolic murmur, rubs, gallop, clicks Neurological exam: Present: alert Psychiatric exam: Present: normal affect, anxious, suicidal ideation. Absent: normal mood Skin exam: Present: warm, dry, intact, normal color. Absent: rash Course Vital Signs 09/08/23 10:11 Temperature 98.0 F Pulse Rate 86 Respiratory 16 Rate Blood Pressure 139/85 O2 Sat by Pulse 94 L Oximetry Medical Decision Making - Medical Decision Making Was pt. sent in by a medical professional or institution (, PA, CASE CHECKER, urgent care, hospital, or prison...) When possible be specific @ -No Did you speak to anyone other than the patient for history (EMS, parent, family, police, friend...)? What history was obtained from this source @ -No Did you review nursing and triage notes (agree or disagree)? Why? @ -I reviewed and agree with nursing and triage notes Were old charts reviewed (outside hosp., previous admission, EMS record, old EKG, old radiological studies, urgent care reports/EKG's, prison records)? Report findings @ -No old charts were reviewed Differential Diagnosis (chest pain, altered mental status, abdominal pain women, abdominal pain men, vaginal bleeding, weakness, fever, dyspnea, syncope, headache, dizziness, GI bleed, back pain, seizure, CVA, palpatations, mental health)? @ -Differential Mental Health Depression, anxiety, bipolar, psychosis, schizophrenia, borderline personality, situational depression, adjustment disorder, behavioral disorder, brain tumor, malingering, substance abuse, encephalopathy, medication reaction, dementia, hypothyroidism, degenerative neurologic disorder, lupus.... This is not meant to be all-inclusive list EKG interpreted by me (3pts min.). @ -As above X-rays interpreted by me (1pt min.). @ -None done CT interpreted by me (1pt min.). @ -None done U/S interpreted by me (1pt. min.). @ -None done What testing was considered but not performed or refused? (CT, X-rays, U/S, labs)? Why? @ -None What meds were considered but not given or refused? Why? @ -None Did you discuss the management of the patient with other professionals (professionals i.e. , PA, CASE CHECKER, lab, RT, psych nurse, social work associate, scourer, t eacher, commercial account officer, case checker)? Give summary @ -No Was smoking cessation discussed for >3mins.? @ -No Was critical care preformed (if so, how long)? @ -No Were there social determinants of health that impacted care today? How? (Homelessness, low income, unemployed, alcoholism, drug addiction, transportation, low edu. Level, literacy, decrease access to med. care, half-way, rehab)? @ -No Was there de-escalation of care discussed even if they declined (Discuss DNR or withdrawal of care, Hospice)? DNR status @ -No What co-morbidities impacted this encounter? (DM, HTN, Smoking, COPD, CAD, Cancer, CVA, ARF, Chemo, Hep., AIDS, mental health diagnosis, sleep apnea, morbid obesity)? @ -None Was patient admitted / discharged? Hospital course, mention meds given and [place], prescriptions, significant lab abnormalities, going to OR and other pertinent info. @ -Patient presented for auditory hallucinations, suicidal ideation with plan. Alcohol breathalyzer 0. Further studies with labs and imaging is not indicated at this time. Patient is cleared for EPS EPS evaluated patient and deemed him stable for discharge as he has a guardian who is working on getting him into inpatient facility for longstanding mental health and substance issues. Safety plan was made prior to discharge Undiagnosed new problem with uncertain prognosis? @ -No Drug Therapy requiring intensive monitoring for toxicity (Heparin, Nitro, Insulin, Cardizem)? @ -No Were any procedures done? @ -No Diagnosis/symptom? @ -auditory hallucinations, suicidal ideation Acute, or Chronic, or Acute on Chronic? @ -acute Uncomplicated (without systemic symptoms) or Complicated (systemic symptoms)? @ -uncomplicated Side effects of treatment? @ -No Exacerbation, Progression, or Severe Exacerbation? @ -No Poses a threat to life or bodily function? How? (Chest pain, USA, ME, pneumonia, PE, COPD, DKA, ARF, appy, cholecystitis, CVA, Diverticulitis, Homicidal, Suicidal, threat to staff... and all critical care pts) @ -No Dr. Mohan is my attening Disposition Clinical Impression: Auditory hallucinations, Suicidal ideation Disposition: HOME SELF-CARE Condition: Good Instructions (If sedation given, give patient instructions): Suicide Prevention (ED) Additional Instructions: Follow up for inpatient facility as planned. Return to the emergency department if you experience new, concerning, or worsening symptoms. Is patient prescribed a controlled substance at d/c from ED?: No Referrals: None,Stated [Primary Care Provider] - 1-2 days
[2023-09-08] MEDS ORDERED: ALPRAZolam 0.5 MG TAB PO STA (11:42)
== END 2023-09-08 11:50 | disposition home or self-care (01) ==
LOC: EC 10:09
DX: R45.851 Suicidal ideations (principal); R44.0 Auditory hallucinations; I10 Essential (primary) hypertension; F17.200 Nicotine dependence, unspecified, uncomplicated; F12.90 Cannabis use, unspecified, uncomplicated; F15.90 Other stimulant use, unspecified, uncomplicated; Z86.59 Personal history of other mental and behavioral disorders
CPT/HCPCS: 82075; 99284

== ENCOUNTER 2023-09-30 21:28 | Emergency (ER) | payer OTHER ==
--- NOTE | 2023-09-30 22:00 | ED ---
General Adult HPI - General Source: patient, EMS Mode of arrival: EMS Limitations: no limitations <Moe Ellington - Last Filed: 09/30/23 22:55> <Ranulfo Seaman - Last Filed: 10/01/23 13:39> - General Chief complaint: Psychiatric Symptoms Stated complaint: Etoh Time Seen by Provider: 09/30/23 21:34 - History of Present Illness Initial comments: Dictation was produced using [employer] dictation software. please excuse any grammatical, word or spelling errors. Chief Complaint: 37-year-old male presents to emergency department for suicidal behavior History of Present Illness: 37-year-old male brought in to the emergency department by EMS. Patient states he left rehab started drinking again. He states that he suicidal. Patient is a poor historian due to alcohol intoxication. According to EMS patient was laying on the road. Planning on getting hit by vehicle or cutting his wrist. Unable to obtain ROS secondary to inebriation (Moe Ellington) - Related Data Previous Rx's Medication Instructions Recorded Haloperidol Decanoate [Haldol D] 200 mg IM Q14D 1 Days #1 each 07/10/23 Amoxic-Pot Clav 875-125Mg 1 each PO Q12HR 10 Days #20 tab 09/05/23 [Augmentin 875-125] LORazepam [Ativan] 0.5 mg PO DAILY PRN 3 Days #3 tab 09/07/23 Allergies Allergy/AdvReac Type Severity Reaction Status Date / Time No Known Allergies Allergy Verified 09/30/23 21:33 Review of Systems ROS Other: All systems not noted in ROS Statement are negative. <Moe Ellington - Last Filed: 09/30/23 22:55> ROS Other: All systems not noted in ROS Statement are negative. <Ranulfo Seaman - Last Filed: 10/01/23 13:39> ROS Statement: Those systems with pertinent positive or pertinent negative responses have been documented in the HPI. Past Medical History Past Medical History: GERD/Reflux, Hypertension, Liver Disease, Skin Disorder Additional Past Medical History / Comment(s): Hepatitis C, Pancreatitis, DDD, back pain, bilateral carpel tunnel syndrome. In the past has reported that he has heart disease that was found when he had kidney problems but he denies having a stress test or cardiac catheterization. History of Any Multi-Drug Resistant Organisms: None Reported MDRO Source:: unknown Past Surgical History: No Surgical Hx Reported, Unable to Obtain Additional Past Surgical History / Comment(s): Pt states he has had numerous "cysts" removed from where he injected IV drugs. Past Anesthesia/Blood Transfusion Reactions: No Reported Reaction, Unable to Obtain Additional Past Anesthesia/Blood Transfusion Reaction / Comment(s): In the past pt reported that he has never had surgery Past Psychological History: Anxiety, Bipolar, Depression, Schizophrenia Smoking Status: Current every day smoker Past Alcohol Use History: Abuse Past Drug Use History: Marijuana, Methamphetamine, Opiates - Past Family History Mother Family Medical History: Unable to Obtain, Rheumatoid Arthritis (RA) Additional Family Medical History / Comment(s): Mother is . Father Family Medical History: Coronary Artery Disease (CAD) <Moe Ellington - Last Filed: 09/30/23 22:55> General Exam Limitations: no limitations <Moe Ellington - Last Filed: 09/30/23 22:55> - General Exam Comments Initial Comments: PHYSICAL EXAM: General Impression: Alert and oriented x3, inebriated HEENT: Normocephalic atraumatic, extra-ocular movements intact, pupils equal and reactive to light bilaterally, mucous membranes moist. Cardiovascular: Heart regular rate and rhythm Chest: Able to complete full sentences, no retractions, no tachypnea Abdomen: abdomen soft, non-tender, non-distended, no organomegaly Musculoskeletal: Pulses present and equal in all extremities, no peripheral edema Motor: no focal deficits noted Neurological: CN II-XII grossly intact, no focal motor or sensory deficits noted Skin: Intact with no visualized rashes Psych: Depressed (Moe Ellington) Course <Ranulfo Seaman - Last Filed: 10/01/23 13:39> Vital Signs 09/30/23 10/01/23 10/01/23 21:30 03:56 13:00 Temperature 97.8 F 98.7 F 98.2 F Pulse Rate 78 99 98 Respiratory 16 20 18 Rate Blood Pressure 164/105 132/81 128/87 O2 Sat by Pulse 99 98 Oximetry - Reevaluation(s) Reevaluation #1: 10/01/23 13:36 Patient was evaluated by the EPS service this morning was he was determined to be sober is awake alert not suicidal not homicidal he will be discharged home with family members with outpatient follow-up (Ranulfo Seaman) Medical Decision Making <Moe Ellington - Last Filed: 09/30/23 22:55> - Lab Data Result diagrams: 09/30/23 22:39 09/30/23 22:39 <Ranulfo Seaman - Last Filed: 10/01/23 13:39> - Medical Decision Making Was pt. sent in by a medical professional or institution (, PA, HAIR COLORIST, urgent care, hospital, or long term...) When possible be specific @ -No Did you speak to anyone other than the patient for history (EMS, parent, family, police, friend...)? What history was obtained from this source @ -No Did you review nursing and triage notes (agree or disagree)? Why? @ -I reviewed and agree with nursing and triage notes Were old charts reviewed (outside hosp., previous admission, EMS record, old EKG, old radiological studies, urgent care reports/EKG's, long term records)? Report findings @ -No old charts were reviewed Differential Diagnosis (chest pain, altered mental status, abdominal pain women, abdominal pain men, vaginal bleeding, musculoskeletal, weakness, fever, dyspnea, syncope, headache, dizziness, GI bleed, back pain, seizure, CVA, palpatations, mental health)? @ -Differential Mental Health: Depression, anxiety, bipolar, psychosis, schizophrenia, borderline personality, situational depression, adjustment disorder, behavioral disorder, brain tumor, malingering, substance abuse, encephalopathy, medication reaction, dementia, hypothyroidism, degenerative neurologic disorder, lupus.... This is not meant to be all-inclusive list EKG interpreted by me (3pts min.). @ -None done X-rays interpreted by me (1pt min.). @ -None done CT interpreted by me (1pt min.). @ -None done U/S interpreted by me (1pt. min.). @ -None done What testing was considered but not performed or refused? (CT, X-rays, U/S, labs)? Why? @ -None What meds were considered but not given or refused? Why? @ -None Did you discuss the management of the patient with other professionals (professionals i.e. , PA, HAIR COLORIST, lab, RT, psych nurse, social service assistant, systems specialist, teacher, facility security officer, casework specialist)? Give summary @ -No Was smoking cessation discussed for >3mins.? @ -No Was critical care preformed (if so, how long)? @ -No Were there social determinants of health that impacted care today? How? (Homelessness, low income, unemployed, alcoholism, drug addiction, transportation, low edu. Level, literacy, decrease access to med. care, half-way, rehab)? @ -No Was there de-escalation of care discussed even if they declined (Discuss DNR or withdrawal of care, Hospice)? DNR status @ -No What co-morbidities impacted this encounter? (DM, HTN, Smoking, COPD, CAD, Cancer, CVA, ARF, Chemo, Hep., AIDS, mental health diagnosis, sleep apnea, morbid obesity)? @ -None Was patient admitted / discharged? Hospital course, mention meds given and route, prescriptions, significant lab abnormalities, going to OR and other pertinent info. @ -37 yo male presents emergency department for alcohol intoxication and suicidal ideation and behavior. Vital signs are stable. Labs pending. Patient care signed out to oncoming physician. Undiagnosed new problem with uncertain prognosis? @ -No Drug Therapy requiring intensive monitoring for toxicity (Heparin, Nitro, Insulin, Cardizem)? @ -No Were any procedures done? @ -No Diagnosis/symptom? Acute, or Chronic, or Acute on Chronic? Uncomplicated (without systemic symptoms) or Complicated (systemic symptoms)? @ -Suicidal behavior Side effects of treatment? @ -No Exacerbation, Progression, or Severe Exacerbation? @ -No Poses a threat to life or bodily function? How? (Chest pain, USA, ID, pneumonia, PE, COPD, DKA, ARF, appy, cholecystitis, CVA, Diverticulitis, Homicidal, Suicidal, threat to staff... and all critical care pts) @ -yes (Moe Ellington) Was pt. sent in by a medical professional or institution ([address] [facility], HAIR COLORIST, urgent care, hospital, or long term...) When possible be specific @ -No Did you speak to anyone other than the patient for history (EMS, parent, family, police, friend...)? What history was obtained from this source @ -No Did you review nursing and triage notes (agree or disagree)? Why? @ -I reviewed and agree with nursing and triage notes Were old charts reviewed (outside hosp., previous admission, EMS record, old EKG, old radiological studies, urgent care reports/EKG's, long term records)? Report findings @ -No old charts were reviewed Differential Diagnosis (chest pain, altered mental status, abdominal pain women, abdominal pain men, vaginal bleeding, weakness, fever, dyspnea, syncope, headache, dizziness, GI bleed, back pain, seizure, CVA, palpatations, mental health, musculoskeletal)? @ -not applicable EKG interpreted by me (3pts min.). @ -As above X-rays interpreted by me (1pt min.). @ -None done CT interpreted by me (1pt min.). @ -None done U/S interpreted by me (1pt. min.). @ -None done What testing was considered but not performed or refused? (CT, X-rays, U/S, labs)? Why? @ -None What meds were considered but not given or refused? Why? @ -None Did you discuss the management of the patient with other professionals (professionals i.e. , PA, HAIR COLORIST, lab, RT, psych nurse, social service assistant, systems specialist, teacher, facility security officer, casework specialist)? Give summary @ -Catheter from EPS patient was evaluated by the psychiatric service he is not suicidal or homicidal he'll be discharged home with family members. Outpatient follow-up Was smoking cessation discussed for >3mins.? @ -No Was critical care preformed (if so, how long)? @ -No Were there social determinants of health that impacted care today? How? (Homelessness, low income, unemployed, alcoholism, drug addiction, transportation, low edu. Level, literacy, decrease access to med. care, half-way, rehab)? @ -[ alcohol abuse Was there de-escalation of care discussed even if they declined (Discuss DNR or withdrawal of care, Hospice)? DNR status @ -No What co-morbidities impacted this encounter? (DM, HTN, Smoking, COPD, CAD, Cancer, CVA, ARF, Chemo, Hep., AIDS, mental health diagnosis, sleep apnea, morbid obesity)? @ -None Was patient admitted / discharged? Hospital course, mention meds given and route, prescriptions, significant lab abnormalities, going to OR and other pertinent info. @ -hospital course patient was discharged home with family members she will have outpatient follow-up Undiagnosed new problem with uncertain prognosis? @ -No Drug Therapy requiring intensive monitoring for toxicity (Heparin, Nitro, Insulin, Cardizem)? @ -No Were any procedures done? @ -No Diagnosis/symptom? @ -Alcohol intoxication, adjustment disorder Acute, or Chronic, or Acute on Chronic? @ -Acute Uncomplicated (without systemic symptoms) or Complicated (systemic symptoms)? @ -default Side effects of treatment? @ -No Exacerbation, Progression, or Severe Exacerbation? @ -No Poses a threat to life or bodily function? How? (Chest pain, USA, ID, pneumonia, PE, COPD, DKA, ARF, appy, cholecystitis, CVA, Diverticulitis, Homicidal, Suicidal, threat to staff... and all critical care pts) @ -Potential (Ranulfo Seaman) - Lab Data Lab Results 09/30/23 09/30/23 Range/Units 22:39 22:39 WBC 10.1 (3.8-10.6) k/uL RBC 5.28 (4.30-5.90) m/uL Hgb 14.7 D (13.0-17.5) gm/dL Hct 44.8 (39.0-53.0) % MCV 84.8 (80.0-100.0) fL MCH 27.9 (25.0-35.0) pg MCHC 32.9 (31.0-37.0) g/dL RDW 15.0 (11.5-15.5) % Plt Count 223 (150-450) k/uL MPV 8.6 Neutrophils % 59 % Lymphocytes % 34 % Monocytes % 4 % Eosinophils % 1 % Basophils % 0 % Neutrophils # 5.9 (1.3-7.7) k/uL Lymphocytes # 3.5 (1.0-4.8) k/uL Monocytes # 0.4 (0-1.0) k/uL Eosinophils # 0.1 (0-0.7) k/uL Basophils # 0.0 (0-0.2) k/uL Sodium 146 H (137-145) mmol/L Potassium 4.7 (3.5-5.1) mmol/L Chloride 112 H (98-107) mmol/L Carbon Dioxide 18 L (22-30) mmol/L Anion Gap 16 mmol/L BUN 8 L (9-20) mg/dL Creatinine 0.63 L (0.66-1.25) mg/dL Est GFR (CKD-EPI)AfAm >90 (>60 ml/min/1.73 sqM) Est GFR (CKD-EPI)NonAf >90 (>60 ml/min/1.73 sqM) Glucose 75 (74-99) mg/dL Calcium 9.6 (8.4-10.2) mg/dL Total Bilirubin 0.6 (0.2-1.3) mg/dL AST 34 (17-59) U/L ALT 14 (4-49) U/L Alkaline Phosphatase 38 (38-126) U/L Total Protein 8.4 H (6.3-8.2) g/dL Albumin 4.7 (3.5-5.0) g/dL Serum Alcohol 297 H* mg/dL Disposition <Moe Ellington - Last Filed: 09/30/23 22:55> Is patient prescribed a controlled substance at d/c from ED?: No Decision Date: 10/01/23 Decision Time: 13:39 <Ranulfo Seaman - Last Filed: 10/01/23 13:39> Clinical Impression: Adjustment reaction of adult life, Alcohol abuse, Alcohol intoxication Disposition: HOME SELF-CARE Condition: Good Instructions (If sedation given, give patient instructions): Mood Disorders (ED), Abuse of Alcohol (ED), Alcohol Intoxication (ED) Additional Instructions: Follow-up outpatient as discussed. Do not use alcohol Referrals: None,Stated [Primary Care Provider] - 1-2 days
[2023-09-30 22:52] LABS: Basophils % (A) 0 %; Eosinophils # (A) 0.1 k/uL (0-0.7); Eosinophils % (A) 1 %; HCT 44.8 % (39.0-53.0); Lymphocytes # (A) 3.5 k/uL (1.0-4.8); Lymphocytes % (A) 34 %; MCH 27.9 pg (25.0-35.0); MCHC 32.9 g/dL (31.0-37.0); MCV 84.8 fL (80.0-100.0); Mean Platelet Volume 8.6; Monocytes # (A) 0.4 k/uL (0-1.0); Monocytes % (A) 4 %; Neutrophils # (A) 5.9 k/uL (1.3-7.7); Neutrophils % (A) 59 %; Platelet Count 223 k/uL (150-450); RBC 5.28 m/uL (4.30-5.90); WBC 10.1 k/uL (3.8-10.6)
[2023-09-30 23:02] LABS: ALT 14 U/L (4-49); AST 34 U/L (17-59); African American GFR (CKD) >90 (>60 ml/min/1.73 sqM); Albumin 4.7 g/dL (3.5-5.0); Alkaline Phosphatase 38 U/L (38-126); Anion Gap 16 mmol/L; Blood Urea Nitrogen 8 mg/dL (9-20); Calcium 9.6 mg/dL (8.4-10.2); Carbon Dioxide 18 mmol/L (22-30); Chloride 112 mmol/L (98-107); Glucose 75 mg/dL (74-99); Non-African American GFR(CKD) >90 (>60 ml/min/1.73 sqM); Potassium 4.7 mmol/L (3.5-5.1); Sodium 146 mmol/L (137-145); Total Bilirubin 0.6 mg/dL (0.2-1.3); Total Protein 8.4 g/dL (6.3-8.2)
[2023-09-30 23:05] LABS: Alcohol 297 mg/dL
[2023-09-30 23:08] LABS: HGB 14.7 gm/dL (13.0-17.5)
[2023-10-01] MEDS ORDERED: LORazepam 1 MG TAB PO STA ×2 (02:01→12:53)
[2023-10-01] MEDS ORDERED: LORazepam 2 MG/ML INJ IV PRN ×3 (03:11)
[2023-10-01 13:23] VITALS: BP 128/87; PULSE 98; RESP 18; TEMP 98.2
== END 2023-10-01 13:59 | disposition home or self-care (01) ==
LOC: EC 21:28
DX: F10.129 Alcohol abuse with intoxication, unspecified (principal); F43.20 Adjustment disorder, unspecified; I10 Essential (primary) hypertension; F41.9 Anxiety disorder, unspecified; F31.9 Bipolar disorder, unspecified; F17.200 Nicotine dependence, unspecified, uncomplicated; Y90.8 Blood alcohol level of 240 mg/100 ml or more
CPT/HCPCS: 82075; 36415; 80053; 85025; 99285; 96374; 96376; G0480; 80320

== ENCOUNTER 2023-10-07 12:59 | Emergency (ER) | payer OTHER ==
[2023-10-07] MEDS ORDERED: LORazepam 2 MG/ML INJ IV STA (13:06)
[2023-10-07] MEDS ORDERED: SODIUM CHLORIDE 0.9% 1,000 ML IV STA (13:06)
--- NOTE | 2023-10-07 13:15 | ED ---
Overdose HPI - General Chief Complaint: Overdose Stated Complaint: Overdose Time Seen by Provider: 10/07/23 13:03 Source: patient, EMS, RN notes reviewed Mode of arrival: EMS Limitations: no limitations - History of Present Illness Initial Comments: This is a 37-year-old male who presents to the emergency department for an overdose. Patient states that he was trying to get high and accidentally overdosed on what he believes was heroin. However, states that it may have been mixed with Fentanyl, as only a small amount caused the overdose, which is not usually the case. EMS did have to give him Narcan twice. States that he feels cold and anxious, but is otherwise okay and is requesting something to eat and drink. Denies any problems with increasing depression, auditory/visual hallucinations, or suicidal/homicidal ideations. MD Complaint: accidental overdose - Related Data Previous Rx's Medication Instructions Recorded Haloperidol Decanoate [Haldol D] 200 mg IM Q14D 1 Days #1 each 07/10/23 Amoxic-Pot Clav 875-125Mg 1 each PO Q12HR 10 Days #20 tab 09/05/23 [Augmentin 875-125] LORazepam [Ativan] 0.5 mg PO DAILY PRN 3 Days #3 tab 09/07/23 Allergies Allergy/AdvReac Type Severity Reaction Status Date / Time No Known Allergies Allergy Verified 09/30/23 21:33 Review of Systems ROS Statement: Those systems with pertinent positive or pertinent negative responses have been documented in the HPI. ROS Other: All systems not noted in ROS Statement are negative. Past Medical History Past Medical History: GERD/Reflux, Hypertension, Liver Disease, Skin Disorder Additional Past Medical History / Comment(s): Hepatitis C, Pancreatitis, DDD, back pain, bilateral carpel tunnel syndrome. In the past has reported that he has heart disease that was found when he had kidney problems but he denies hui ving a stress test or cardiac catheterization. History of Any Multi-Drug Resistant Organisms: None Reported MDRO Source:: unknown Past Surgical History: No Surgical Hx Reported, Unable to Obtain Additional Past Surgical History / Comment(s): Pt states he has had numerous "cysts" removed from where he injected IV drugs. Past Anesthesia/Blood Transfusion Reactions: No Reported Reaction, Unable to Obtain Additional Past Anesthesia/Blood Transfusion Reaction / Comment(s): In the past pt reported that he has never had surgery Past Psychological History: Anxiety, Bipolar, Depression, Schizophrenia Smoking Status: Current every day smoker Past Alcohol Use History: Abuse Past Drug Use History: Marijuana, Methamphetamine, Opiates - Past Family History Mother Family Medical History: Unable to Obtain, Rheumatoid Arthritis (RA) Additional Family Medical History / Comment(s): Mother is . Father Family Medical History: Coronary Artery Disease (CAD) General Exam Limitations: no limitations General appearance: alert, in no apparent distress Head exam: Present: atraumatic, normocephalic, normal inspection Respiratory exam: Present: normal lung sounds bilaterally. Absent: respiratory distress, wheezes, rales, rhonchi, stridor Cardiovascular Exam: Present: regular rate, normal rhythm, normal heart sounds. Absent: systolic murmur, diastolic murmur, rubs, gallop, clicks Neurological exam: Present: alert, oriented X3, CN II-XII intact Psychiatric exam: Present: normal affect, normal mood Skin exam: Present: warm, dry, intact, normal color. Absent: rash Course Vital Signs 10/07/23 13:05 Temperature 96.7 F L Pulse Rate 99 Respiratory 14 Rate Blood Pressure 115/60 O2 Sat by Pulse 96 Oximetry Medical Decision Making - Medical Decision Making This is a 37-year-old male who presents to the emergency department for an overdose. Was pt. sent in by a medical professional or institution? @ -No Did you speak to anyone other than the patient for history? @ -No Did you review nursing and triage notes? @ -Yes, and I agree, it is accurate with regards to the patient's symptoms. Were old charts reviewed? @ -No Differential Diagnosis? @ -Differential Overdose: Overdose, hypoglycemia, nirmal's crisis, seizure, this is not meant to be an all-inclusive list. EKG interpreted by me (3pts min.)? @ -EKG interpreted by me demonstrating the following: Sinus rhythm. Ventricular rate 88 beats per minute, AR interval 130 ms, QRS duration 102 ms, QTC 406 ms. X-rays interpreted by me (1pt min.)? @ -Not obtained CT interpreted by me (1pt min.)? @ -Not obtained U/S interpreted by me (1pt. min.)? @ -Not obtained What testing was considered but not performed? (CT, X-rays, U/S, labs)? Why? @ -None What meds were considered but not given? Why? @ -None Did you discuss the management of the patient with other professionals? @ -No Did you reconcile home meds? @ -No Was smoking cessation discussed for >3mins.? @ -I discussed smoking cessation for greater than 3 minutes. The risk of smoking were discussed with the patient including but not limited to risks of cancer, stroke, coronary artery disease and COPD. Also discussed with patient were multiple methods of quitting smoking. Lastly we discussed the financial cost of smoking. Was critical care preformed (if so, how long)? @ -No Were there social determinants of health that impacted care today? How? (Homelessness, low income, unemployed, alcoholism, drug addiction, transportation, low edu. Level, literacy, decrease access to med. care, nursing home, rehab)? @ -Substance abuse, which led to the overdose that brought the patient to the emergency department today. Was there de-escalation of care discussed even if they declined? (Discuss DNR or withdrawal of care, Hospice)? @ -No What co-morbidities impacted this encounter? (DM, HTN, Smoking, COPD, CAD, Cancer, CVA, Hep., AIDS, mental health diagnosis, sleep apnea, morbid obesity)? @ -Polysubstance abuse, mental health diagnosis Was patient admitted / discharged? @ -Discharged. Lab work obtained revealing leukocytosis and an elevated lactic acid, likely secondary to the recent events of the overdose requiring 2 doses of Narcan. We attempted to get a urine drug screen to test for any other illicit substances, including fentanyl, that could have contributed to the overdose. However, the patient did not provide a urine sample prior to discharge. He was given IV fluids and Ativan. He was up and walking around without any evidence of distress and eating and drinking. Patient discharged home in stable condition and educated on the need to stop using illicit substances, as this does increase his risk for , especially with additional overdoses. Undiagnosed new problem with uncertain prognosis? @ -None Drug Therapy requiring intensive monitoring for toxicity (Heparin, Nitro, Insulin, Cardizem)? @ -None Were any procedures done? @ -None Diagnosis/symptom? @ -Overdose Acute, or Chronic, or Acute on Chronic? @ -Acute Uncomplicated (without systemic symptoms) or Complicated (systemic symptoms)? @ -Uncomplicated Side effects of treatment? @ -None Exacerbation, Progression, or Severe Exacerbation] @ -Not applicable Poses a threat to life or bodily function? @ -Yes Return precautions reviewed in depth, the patient is instructed to return to the emergency department with any new, worsening, or concerning symptoms. Patient verbalized understanding. This case was discussed in detail with the attending ED physician, Dr. Moran. Presentation, findings, and treatment plan discussed in detail as well. - Lab Data Result diagrams: 10/07/23 13:11 10/07/23 13:11 Lab Results 10/07/23 10/07/23 10/07/23 Range/Units 13:11 13:11 13:11 WBC 14.4 H (3.8-10.6) k/uL RBC 5.20 (4.30-5.90) m/uL Hgb 14.7 (13.0-17.5) gm/dL Hct 45.0 (39.0-53.0) % MCV 86.5 (80.0-100.0) fL MCH 28.3 (25.0-35.0) pg MCHC 32.7 (31.0-37.0) g/dL RDW 15.1 (11.5-15.5) % Plt Count 293 (150-450) k/uL MPV 8.5 Neutrophils % 82 % Lymphocytes % 10 % Monocytes % 5 % Eosinophils % 1 % Basophils % 1 % Neutrophils # 11.8 H (1.3-7.7) k/uL Lymphocytes # 1.5 (1.0-4.8) k/uL Monocytes # 0.7 (0-1.0) k/uL Eosinophils # 0.2 (0-0.7) k/uL Basophils # 0.1 (0-0.2) k/uL Sodium 141 (137-145) mmol/L Potassium 3.6 (3.5-5.1) mmol/L Chloride 99 (98-107) mmol/L Carbon Dioxide 19 L (22-30) mmol/L Anion Gap 23 mmol/L BUN 11 (9-20) mg/dL Creatinine 1.28 H (0.66-1.25) mg/dL Est GFR (CKD-EPI)AfAm 83 (>60 ml/min/1.73 sqM) Est GFR (CKD-EPI)NonAf 72 (>60 ml/min/1.73 sqM) Glucose 101 H (74-99) mg/dL Lactic Ac Sepsis Rflx Plasma Lactic Acid Sohail 9.0 H* (0.7-2.0) mmol/L Calcium 10.1 (8.4-10.2) mg/dL Total Bilirubin 0.5 (0.2-1.3) mg/dL AST 35 (17-59) U/L ALT 42 (4-49) U/L Alkaline Phosphatase 54 (38-126) U/L Total Protein 8.1 (6.3-8.2) g/dL Albumin 4.7 (3.5-5.0) g/dL Salicylates <1.0 mg/dL Acetaminophen <10.0 ug/mL Serum Alcohol <10 mg/dL 10/07/23 10/07/23 10/07/23 Range/Units 14:05 16:45 17:16 WBC (3.8-10.6) k/uL RBC (4.30-5.90) m/uL Hgb (13.0-17.5) gm/dL Hct (39.0-53.0) % MCV (80.0-100.0) fL MCH (25.0-35.0) pg MCHC (31.0-37.0) g/dL RDW (11.5-15.5) % Plt Count (150-450) k/uL MPV Neutrophils % % Lymphocytes % % Monocytes % % Eosinophils % % Basophils % % Neutrophils # (1.3-7.7) k/uL Lymphocytes # (1.0-4.8) k/uL Monocytes # (0-1.0) k/uL Eosinophils # (0-0.7) k/uL Basophils # (0-0.2) k/uL Sodium (137-145) mmol/L Potassium (3.5-5.1) mmol/L Chloride (98-107) mmol/L Carbon Dioxide (22-30) mmol/L Anion Gap mmol/L BUN (9-20) mg/dL Creatinine (0.66-1.25) mg/dL Est GFR (CKD-EPI)AfAm (>60 ml/min/1.73 sqM) Est GFR (CKD-EPI)NonAf (>60 ml/min/1.73 sqM) Glucose (74-99) mg/dL Lactic Ac Sepsis Rflx Y Y Plasma Lactic Acid Sohail 2.6 H* (0.7-2.0) mmol/L Calcium (8.4-10.2) mg/dL Total Bilirubin (0.2-1.3) mg/dL AST (17-59) U/L ALT (4-49) U/L Alkaline Phosphatase (38-126) U/L Total Protein (6.3-8.2) g/dL Albumin (3.5-5.0) g/dL Salicylates mg/dL Acetaminophen ug/mL Serum Alcohol mg/dL Disposition Clinical Impression: Accidental drug overdose, Nicotine dependence Disposition: HOME SELF-CARE Instructions (If sedation given, give patient instructions): Adult Overdose (E D) Additional Instructions: Return to the emergency department with any new, worsening, or concerning symptoms. Stop using drugs. Follow up with your primary care provider in 1-2 days. Is patient prescribed a controlled substance at d/c from ED?: No Referrals: None,Stated [Primary Care Provider] - 1-2 days Forms: [employer]
[2023-10-07 13:22] VITALS: BP 115/60; PULSE 99; RESP 14; TEMP 96.7
[2023-10-07 13:29] LABS: Basophils # (A) 0.1 k/uL (0-0.2); Basophils % (A) 1 %; Eosinophils # (A) 0.2 k/uL (0-0.7); Eosinophils % (A) 1 %; HGB 14.7 gm/dL (13.0-17.5); Lymphocytes # (A) 1.5 k/uL (1.0-4.8); Lymphocytes % (A) 10 %; MCH 28.3 pg (25.0-35.0); MCHC 32.7 g/dL (31.0-37.0); MCV 86.5 fL (80.0-100.0); Mean Platelet Volume 8.5; Monocytes # (A) 0.7 k/uL (0-1.0); Monocytes % (A) 5 %; Neutrophils # (A) 11.8 k/uL (1.3-7.7); Neutrophils % (A) 82 %; Platelet Count 293 k/uL (150-450); RDW 15.1 % (11.5-15.5); WBC 14.4 k/uL (3.8-10.6)
[2023-10-07 13:42] LABS: ALT 42 U/L (4-49); AST 35 U/L (17-59); African American GFR (CKD) 83 (>60 ml/min/1.73 sqM); Albumin 4.7 g/dL (3.5-5.0); Alcohol <10 mg/dL; Alkaline Phosphatase 54 U/L (38-126); Anion Gap 23 mmol/L; Blood Urea Nitrogen 11 mg/dL (9-20); Calcium 10.1 mg/dL (8.4-10.2); Carbon Dioxide 19 mmol/L (22-30); Chloride 99 mmol/L (98-107); Glucose 101 mg/dL (74-99); Non-African American GFR(CKD) 72 (>60 ml/min/1.73 sqM); Potassium 3.6 mmol/L (3.5-5.1); Salicylate <1.0 mg/dL; Sodium 141 mmol/L (137-145); Total Bilirubin 0.5 mg/dL (0.2-1.3); Total Protein 8.1 g/dL (6.3-8.2)
[2023-10-07 14:08] LABS: Acetaminophen <10.0 ug/mL
== END 2023-10-07 16:58 | disposition home or self-care (01) ==
LOC: EC 12:59
DX: T40.1X1A Poisoning by heroin, accidental (unintentional), initial encounter (principal); F17.200 Nicotine dependence, unspecified, uncomplicated; I10 Essential (primary) hypertension; F12.90 Cannabis use, unspecified, uncomplicated; F15.90 Other stimulant use, unspecified, uncomplicated; Z86.59 Personal history of other mental and behavioral disorders
CPT/HCPCS: 36415; 93005; 80053; 83605; 85025; 80143; 80179; 99284; 99406; 96374; 96361; G0480; J2060; 80320

== ENCOUNTER 2023-10-11 16:02 | Observation (INO) | payer OTHER ==
[2023-10-11] MEDS ORDERED: SODIUM CHLORIDE 0.9% 500 ML 500 ML IV STA (16:33)
[2023-10-11] MEDS ORDERED: SODIUM CHLORIDE 0.9% 1,000 ML IV STA ×2 (16:33)
--- NOTE | 2023-10-11 16:36 | ED ---
Altered Mental Status HPI - General Chief Complaint: Alcohol Stated Complaint: ETOH Time Seen by Provider: 10/11/23 16:12 Source: EMS, RN notes reviewed, old records reviewed Mode of arrival: EMS Limitations: no limitations - History of Present Illness Initial Comments: This is a 37-year-old male to the emergency department for evaluation. Patient is a poor strain secondary to clinical condition patient was found outside intoxicated and brought to the emergency department stay. Patient is unable to participate or provide history of present illness MD Complaint: altered mental status, confusion, intoxication, weakness -: unknown Severity: severe Consistency of Symptoms: constant Context: alcohol abuse, drug abuse Associated Symptoms: weakness - Related Data Previous Rx's Medication Instructions Recorded Haloperidol Decanoate [Haldol D] 200 mg IM Q14D 1 Days #1 each 07/10/23 Amoxic-Pot Clav 875-125Mg 1 each PO Q12HR 10 Days #20 tab 09/05/23 [Augmentin 875-125] LORazepam [Ativan] 0.5 mg PO DAILY PRN 3 Days #3 tab 09/07/23 Allergies Allergy/AdvReac Type Severity Reaction Status Date / Time No Known Allergies Allergy Verified 10/11/23 16:34 Review of Systems ROS Statement: Those systems with pertinent positive or pertinent negative responses have been documented in the HPI. ROS Other: All systems not noted in ROS Statement are negative. Past Medical History Past Medical History: GERD/Reflux, Hypertension, Liver Disease, Skin Disorder Additional Past Medical History / Comment(s): Hepatitis C, Pancreatitis, DDD, back pain, bilateral carpel tunnel syndrome. In the past has reported that he has heart disease that was found when he had kidney problems but he denies having a stress test or cardiac catheterization. History of Any Multi-Drug Resistant Organisms: None Reported MDRO Source:: unknown Past Surgical History: No Surgical Hx Reported, Unable to Obtain Additional Past Surgical History / Comment(s): Pt states he has had numerous "cysts" removed from where he injected IV drugs. Past Anesthesia/Blood Transfusion Reactions: No Reported Reaction, Unable to Obtain Additional Past Anesthesia/Blood Transfusion Reaction / Comment(s): In the past pt reported that he has never had surgery Past Psychological History: Anxiety, Bipolar, Depression, Schizophrenia Smoking Status: Current every day smoker Past Alcohol Use History: Abuse Past Drug Use History: Marijuana, Methamphetamine, Opiates - Past Family History Mother Family Medical History: Unable to Obtain, Rheumatoid Arthritis (RA) Additional Family Medical History / Comment(s): Mother is . Father Family Medical History: Coronary Artery Disease (CAD) General Exam Limitations: no limitations General appearance: alert, in no apparent distress Head exam: Present: atraumatic, normocephalic, normal inspection Eye exam: Present: normal appearance, PERRL, EOMI. Absent: scleral icterus, conjunctival injection, periorbital swelling ENT exam: Present: normal exam, mucous membranes moist Neck exam: Present: normal inspection. Absent: tenderness, meningismus, lymphadenopathy Respiratory exam: Present: normal lung sounds bilaterally. Absent: respiratory distress, wheezes, rales, rhonchi, stridor Cardiovascular Exam: Present: regular rate, normal rhythm, normal heart sounds. Absent: systolic murmur, diastolic murmur, rubs, gallop, clicks GI/Abdominal exam: Present: soft, normal bowel sounds. Absent: distended, tenderness, guarding, rebound, rigid Extremities exam: Present: normal inspection, full ROM, normal capillary refill. Absent: tenderness, pedal edema, joint swelling, calf tenderness Back exam: Present: normal inspection Neurological exam: Present: alert, oriented X3, CN II-XII intact Psychiatric exam: Present: normal affect, normal mood Skin exam: Present: warm, dry, intact, normal color. Absent: rash Course Vital Signs 10/11/23 10/11/23 10/11/23 16:32 18:35 19:23 Temperature 97.8 F Pulse Rate 99 99 98 Respiratory 18 18 18 Rate Blood Pressure 148/95 155/106 161/97 O2 Sat by Pulse 99 99 99 Oximetry - Reevaluation(s) Reevaluation #1: 10/11/23 19:36 Medical record is reviewed Reevaluation #2: 10/11/23 19:36 Patient symptoms are changing Reevaluation #3: 10/11/23 19:36 Patient informed results questions answered Reevaluation #4: 10/11/23 19:36 Was pt. sent in by a medical professional or institution (, PA, STEAM [employer]TER SUPER[employer]OR MAINTENANCE, urgent care, hospital, or intermediate...) When possible be specific @ -no Did you speak to anyone other than the patient for history (EMS, parent, family, police, friend...)? What history was obtained from this source @ -no Did you review nursing and triage notes (agree or disagree)? Why? @ -agree Are old charts reviewed (outside hosp., previous admission, EMS record, old EKG, old radiological studies, urgent care reports/EKG's, intermediate records)? Report findings @ -yes Differential Diagnosis (chest pain, altered mental status, abdominal pain women, abdominal pain men, vaginal bleeding, weakness, fever, dyspnea, syncope, headache, dizziness, GI bleed, back pain, seizure, CVA, palpatations, mental he alth, musculoskeletal)? @ -prior EKG interpreted by me (3pts min.). @ -yes X-rays interpreted by me (1pt min.). @ -yes CT interpreted by me (1pt min.). @ -no U/S interpreted by me (1pt. min.). @ -no What testing was considered but not performed or refused? (CT, X-rays, U/S, labs)? Why? @ -none What meds were considered but not given or refused? Why? @ -none Did you discuss the management of the patient with other professionals (professionals i.e. , PA, [employer]INTENANCE, lab, RT, psych nurse, health social work professor, surveying teacher, teacher, cash management officer, case consultant)? Give summary @ -no Was smoking cessation discussed for >3mins.? @ -no Was critical care preformed (if so, how long)? @ -no Were there social determinants of health that impacted care today? How? (Homelessness, low income, unemployed, alcoholism, drug addiction, transportation, low edu. Level, literacy, decrease access to med. care, long term, rehab)? @ -none Was there de-escalation of care discussed even if they declined (Discuss DNR or withdrawal of care, Hospice)? DNR status @ -no What co-morbidities impacted this encounter? (DM, HTN, Smoking, COPD, CAD, Cancer, CVA, ARF, Chemo, Hep., AIDS, mental health diagnosis, sleep apnea, morbi d obesity)? @ -none Was patient admitted / discharged? Hospital course, mention meds given and rout e, prescriptions, significant lab abnormalities, going to OR and other pertinent info. @ - Undiagnosed new problem with uncertain prognosis? @ -no Drug Therapy requiring intensive monitoring for toxicity (Heparin, Nitro, Insulin, Cardizem)? @ -no Were any procedures done? @ -no Diagnosis/symptom? @ - Acute, or Chronic, or Acute on Chronic? @ -Acute Uncomplicated (without systemic symptoms) or Complicated (systemic symptoms)? @ -Complicated Side effects of treatment? @ -no Exacerbation, Progression, or Severe Exacerbation? @ -exacerbation Poses a threat to life or bodily function? How? (Chest pain, USA, CT, pneumonia, PE, COPD, DKA, ARF, appy, cholecystitis, CVA, Diverticulitis, Homicidal, Suicidal, threat to staff... and all critical care pts) @ -yes Reevaluation #5: 10/11/23 19:36 Differential Altered Mental Status: Hypoglycemia, DKA, hypercapnia, ETOH, overdose, CO poisoning, trauma, myxedema coma, HTN encephalopathy, infection, encephalitis, psychosis, intercranial hemorrhage, hepatic encephalopathy, meningitis, CVA, this is not meant to be an all-inclusive list - Consultations Consultation #1: Spoke with sound who agrees to admit this patient Medical Decision Making - Medical Decision Making 37 male is significantly altered mental status, patient is unable to provide history significant for intoxicated, patient is admitted for alcohol toxicity - Lab Data Result diagrams: 10/11/23 16:56 10/11/23 16:56 Lab Results 10/11/23 10/11/23 Range/Units 16:56 16:56 WBC 10.0 (3.8-10.6) k/uL RBC 5.35 (4.30-5.90) m/uL Hgb 14.9 (13.0-17.5) gm/dL Hct 45.6 (39.0-53.0) % MCV 85.2 (80.0-100.0) fL MCH 27.9 (25.0-35.0) pg MCHC 32.7 (31.0-37.0) g/dL RDW 15.2 (11.5-15.5) % Plt Count 296 (150-450) k/uL MPV 9.1 Neutrophils % 67 % Lymphocytes % 26 % Monocytes % 5 % Eosinophils % 0 % Basophils % 0 % Neutrophils # 6.7 (1.3-7.7) k/uL Lymphocytes # 2.6 (1.0-4.8) k/uL Monocytes # 0.5 (0-1.0) k/uL Eosinophils # 0.0 (0-0.7) k/uL Basophils # 0.0 (0-0.2) k/uL Sodium 149 H (137-145) mmol/L Potassium 4.2 (3.5-5.1) mmol/L Chloride 110 H (98-107) mmol/L Carbon Dioxide 23 (22-30) mmol/L Anion Gap 16 mmol/L BUN 2 L (9-20) mg/dL Creatinine 0.58 L (0.66-1.25) mg/dL Est GFR (CKD-EPI)AfAm >90 (>60 ml/min/1.73 sqM) Est GFR (CKD-EPI)NonAf >90 (>60 ml/min/1.73 sqM) Glucose 91 (74-99) mg/dL Calcium 9.9 (8.4-10.2) mg/dL Phosphorus 3.5 (2.5-4.5) mg/dL Magnesium 2.3 (1.6-2.3) mg/dL Total Bilirubin 0.6 (0.2-1.3) mg/dL AST 44 (17-59) U/L ALT 23 (4-49) U/L Alkaline Phosphatase 45 (38-126) U/L Total Protein 8.3 H (6.3-8.2) g/dL Albumin 4.5 (3.5-5.0) g/dL Lipase 88 (23-300) U/L Serum Alcohol 332 H* mg/dL Disposition Clinical Impression: Alcohol abuse Disposition: ADMITTED IP TO THIS HOSP Condition: Fair Is patient prescribed a controlled substance at d/c from ED?: No Time of Disposition: 18:15
[2023-10-11 17:40] LABS: Basophils % (A) 0 %; Eosinophils % (A) 0 %; HCT 45.6 % (39.0-53.0); HGB 14.9 gm/dL (13.0-17.5); Lymphocytes # (A) 2.6 k/uL (1.0-4.8); Lymphocytes % (A) 26 %; MCH 27.9 pg (25.0-35.0); MCHC 32.7 g/dL (31.0-37.0); MCV 85.2 fL (80.0-100.0); Mean Platelet Volume 9.1; Monocytes # (A) 0.5 k/uL (0-1.0); Monocytes % (A) 5 %; Neutrophils # (A) 6.7 k/uL (1.3-7.7); Neutrophils % (A) 67 %; Platelet Count 296 k/uL (150-450); RBC 5.35 m/uL (4.30-5.90); RDW 15.2 % (11.5-15.5)
[2023-10-11] MEDS ORDERED: LORazepam 2 MG/ML INJ IV PRN ×2 (18:12)
[2023-10-11] MEDS ORDERED: NALOXONE 0.4 MG/ML 1 ML VIAL IV PRN (18:12)
[2023-10-11] MEDS ORDERED: ONDANSETRON 4 MG/2 ML VIAL IVP PRN (18:12)
[2023-10-11 18:14] LABS: ALT 23 U/L (4-49); African American GFR (CKD) >90 (>60 ml/min/1.73 sqM); Albumin 4.5 g/dL (3.5-5.0); Anion Gap 16 mmol/L; Blood Urea Nitrogen 2 mg/dL (9-20); Calcium 9.9 mg/dL (8.4-10.2); Carbon Dioxide 23 mmol/L (22-30); Chloride 110 mmol/L (98-107); Glucose 91 mg/dL (74-99); Lipase 88 U/L (23-300); Magnesium 2.3 mg/dL (1.6-2.3); Non-African American GFR(CKD) >90 (>60 ml/min/1.73 sqM); Phosphorus 3.5 mg/dL (2.5-4.5); Sodium 149 mmol/L (137-145); Total Bilirubin 0.6 mg/dL (0.2-1.3); Total Protein 8.3 g/dL (6.3-8.2)
[2023-10-11] MEDS: SODIUM CHLORIDE 0.9% 1,000 ML IV SCH (18:19)
[2023-10-11 18:23] LABS: Alcohol 332 mg/dL
[2023-10-11 18:24] LABS: AST 44 U/L (17-59); Alkaline Phosphatase 45 U/L (38-126); Potassium 4.2 mmol/L (3.5-5.1)
[2023-10-11] MEDS: LORazepam 2 MG/ML INJ IV PRN (20:27)
--- NOTE | 2023-10-11 22:14 | P.HPIM ---
History of Present Illness H&P Date: 10/11/23 Patient is a 37-year-old male, well-known to us, with a PMH of alcohol use, polysubstance abuse, schizoaffective disorder, who was brought in to the emergency room after he was found on the street intoxicated. The patient reports that he drank 1-1/2 pint of vodka with his last drink around 3 PM, which is more than his usual of 1 pint daily. He reported feeling at his baseline at the time of interview and had no active complaints. Denied experiencing chest discomfort, shortness of breath, fever, chills, cough, nausea, vomiting, abdominal pain, diarrhea Laboratory evaluation in the emergency room revealed an alcohol level of 332. BUN was 2, creatinine 0.58, sodium 149, and chloride 110. ED documentation reviewed and case discussed with ED provider. Review of systems: Pertinent positives and negatives as discussed in HPI, a complete review of systems was performed and all other systems are negative. Physical examination: Vital signs reviewed General: Disheveled male, no distress, appears at stated age, normal weight Derm: no unusual rashes/lesions, warm Head: atraumatic, normocephalic, symmetric Eyes: EOMI, no lid lag, anicteric sclera, pupils equal round reactive to light ENT: Nose and ears atraumatic Neck: No cervical lymphadenopathy, trachea midline, supple Mouth: no lip lesion, mucus membranes moist, some tongue fasciculations noted Cardiovascular: S1S2 reg, no murmur, positive dorsalis pedis pulse bilateral, no edema Lungs: CTA bilateral, no rhonchi, no rales, no accessory muscle use Abdominal: soft, nontender to palpation, no guarding Ext: muscle strength 5 out of 5 in all 4 extremities grossly, no gross muscle atrophy, no contractures, Neuro: CN II-XI grossly intact, no gross focal neuro deficits, somewhat tremulous Psych: Alert, oriented, appropriate affect Assessment: Alcohol intoxication, impending withdrawal Chronic conditions: Schizoaffective disorder, polysubstance abuse Imaging: None performed Data Review: Laboratory evaluation in the emergency room revealed an alcohol level of 332. BUN was 2, creatinine 0.58, sodium 149, and chloride 110. Plan: CIWA protocol with Ativan IV Fall, aspiration, seizure precautions Start patient on Librium Monitor electrolytes IV fluids with normal saline Cardiac monitoring DVT prophylaxis: Lovenox Subq The patient is admitted with an anticipated less than 2 midnight stay for evaluation of EtOH CODE STATUS: Full Code Discussed with: Patient Anticipated discharge place: Nursing Home Past Medical History Past Medical History: GERD/Reflux, Hypertension, Liver Disease, Skin Disorder Additional Past Medical History / Comment(s): Hepatitis C, Pancreatitis, DDD, back pain, bilateral carpel tunnel syndrome. In the past has reported that he has heart disease that was found when he had kidney problems but he denies having a stress test or cardiac catheterization. History of Any Multi-Drug Resistant Organisms: None Reported MDRO Source:: unknown Past Surgical History: No Surgical Hx Reported, Unable to Obtain Additional Past Surgical History / Comment(s): Pt states he has had numerous "cysts" removed from where he injected IV drugs. Past Anesthesia/Blood Transfusion Reactions: No Reported Reaction, Unable to Obtain Additional Past Anesthesia/Blood Transfusion Reaction / Comment(s): In the past pt reported that he has never had surgery Past Psychological History: Anxiety, Bipolar, Depression, Schizophrenia Smoking Status: Current every day smoker Past Alcohol Use History: Abuse Past Drug Use History: Marijuana, Methamphetamine, Opiates - Past Family History Mother Family Medical History: Unable to Obtain, Rheumatoid Arthritis (RA) Additional Family Medical History / Comment(s): Mother is . Father Family Medical History: Coronary Artery Disease (CAD) Medications and Allergies Home Medications Medication Instructions Recorded Confirmed Type Haloperidol Decanoate [Haldol D] 200 mg IM Q14D 1 Days #1 each 07/10/23 08/28/23 Rx Amoxic-Pot Clav 875-125Mg 1 each PO Q12HR 10 Days #20 tab 09/05/23 Rx [Augmentin 875-125] LORazepam [Ativan] 0.5 mg PO DAILY PRN 3 Days #3 tab 09/07/23 Rx Allergies Allergy/AdvReac Type Severity Reaction Status Date / Time No Known Allergies Allergy Verified 10/11/23 16:34 Physical Exam Vitals: Vital Signs Temp Pulse Pulse Resp BP BP Pulse Ox 10/11/23 20:00 98.3 F 91 17 144/94 100 10/11/23 19:23 98 18 161/97 99 10/11/23 18:35 99 18 155/106 99 10/11/23 16:32 97.8 F 99 18 148/95 99 Intake and Output 10/11/23 10/11/23 10/11/23 06:59 14:59 22:59 Other: Weight 76.204 kg Results CBC & Chem 7: 10/11/23 16:56 10/11/23 16:56 Labs: Abnormal Lab Results - Last 24 Hours (Table) 10/11/23 Range/Units 16:56 Sodium 149 H (137-145) mmol/L Chloride 110 H (98-107) mmol/L BUN 2 L (9-20) mg/dL Creatinine 0.58 L (0.66-1.25) mg/dL Total Protein 8.3 H (6.3-8.2) g/dL Serum Alcohol 332 H* mg/dL
[2023-10-12] MEDS: SODIUM CHLORIDE 0.9% 1,000 ML IV SCH (01:20)
[2023-10-12] MEDS: LORazepam 2 MG/ML INJ IV PRN ×2 (06:44→07:43)
[2023-10-12 08:16] VITALS: BP 150/90; PULSE 112; RESP 19; TEMP 98.1
[2023-10-12 08:39] LABS: Basophils % (A) 0 %; Eosinophils # (A) 0.1 k/uL (0-0.7); Eosinophils % (A) 1 %; HCT 39.3 % (39.0-53.0); HGB 12.9 gm/dL (13.0-17.5); Lymphocytes # (A) 2.2 k/uL (1.0-4.8); Lymphocytes % (A) 25 %; MCH 28.1 pg (25.0-35.0); MCHC 32.8 g/dL (31.0-37.0); MCV 85.7 fL (80.0-100.0); Mean Platelet Volume 8.3; Monocytes # (A) 0.5 k/uL (0-1.0); Monocytes % (A) 6 %; Neutrophils # (A) 5.7 k/uL (1.3-7.7); Neutrophils % (A) 66 %; Platelet Count 264 k/uL (150-450); RBC 4.58 m/uL (4.30-5.90); RDW 15.1 % (11.5-15.5); WBC 8.7 k/uL (3.8-10.6)
[2023-10-12] MEDS ORDERED: MULTIVITAMINS, THERA 1 EACH TAB PO SCH (09:00)
[2023-10-12] MEDS ORDERED: FOLIC ACID 1 MG TAB PO SCH (09:00)
[2023-10-12] MEDS ORDERED: THIAMINE 100 MG TAB PO SCH (09:00)
[2023-10-12] MEDS ORDERED: ENOXAPARIN 40 MG/0.4 ML SYRINGE SQ SCH (09:00)
[2023-10-12 09:03] LABS: African American GFR (CKD) >90 (>60 ml/min/1.73 sqM); Anion Gap 13 mmol/L; Blood Urea Nitrogen 8 mg/dL (9-20); Calcium 9.3 mg/dL (8.4-10.2); Carbon Dioxide 21 mmol/L (22-30); Chloride 109 mmol/L (98-107); Glucose 85 mg/dL (74-99); Non-African American GFR(CKD) >90 (>60 ml/min/1.73 sqM); Sodium 143 mmol/L (137-145)
--- NOTE | 2023-10-12 14:05 | P.DS ---
Providers Date of admission: 10/11/23 18:12 Expected date of discharge: 10/12/23 Attending physician: Seth Flores MD Primary care physician: Stated None Hospital Course: Discharge Diagnosis: Acute alcohol intoxication Prometrium and dehydration secondary to alcohol Schizoaffective disorder Polysubstance abuse Hospital Course: Patient is a 37-year-old male well known to us from multiple admissions due to alcoholism and his mental health who presented to the ER after he was found intoxicated on the street. He is on have hyponatremia and a serum alcohol of 332. He was subsequently admitted and started on IV fluids. By the next morning his sodium had normalized to 143. He was no longer actively intoxicated was alert and oriented 3. He did require 1 dose of Ativan. Over patient has no intentions on stopping drinking at this time. He was eating, drinking, and of clear thoughts. He was determined stable for discharge home. Patient seen and examined at bedside. He is alert and oriented 3. He is unsure why he came to the hospital. He reports that his moods have been okay. He has no desire to quit drinking alcohol. Vital signs reviewed and stable. General: nontoxic, no distress, appears at stated age Cardiovascular: S1S2 reg, no murmur, positive posterior tibial pulse bilateral, Lungs: CTA bilateral, no rhonchi, no rales , no accessory muscle use Abdominal: soft, nontender to palpation, no guarding, no appreciable organomegaly Ext: no gross muscle atrophy, no edema b/l lower extremities, no contractures Neuro: CN II-XI grossly intact, no focal neuro deficits Psych: Alert, oriented, appropriate affect A total of 20 minutes of time were spent preparing this complex discharge summary. Patient was discharged on 10/12/23. This dictation was prepared using [employer] voice recognition software. Though every attempt is made to correct errors during dictation some may still exist. Patient Condition at Discharge: Fair Plan - Discharge Summary Discharge Rx Participant: Yes New Discharge Prescriptions: Continue Haloperidol Decanoate [Haldol D] 200 mg IM Q14D 1 Days #1 each Discharge Medication List Haloperidol Decanoate [Haldol D] 200 mg IM Q14D 1 Days #1 each 07/10/23 [Rx] Follow up Appointment(s)/Referral(s): None,Stated [Primary Care Provider] - 1-2 days Activity/Diet/Wound Care/Special Instructions: Activity: As tolerated Diet: Regular Special Instructions: Avoid Alcohol Discharge Disposition: HOME SELF-CARE
== END 2023-10-12 11:52 | disposition home or self-care (01) ==
LOC: EC 16:02 → 4SSUR 18:12
PROVIDERS: ADMIT Internal Medicine; ATTEND Internal Medicine
DX: F10.120 Alcohol abuse with intoxication, uncomplicated (principal); E86.0 Dehydration; F19.10 Other psychoactive substance abuse, uncomplicated; I10 Essential (primary) hypertension; K21.9 Gastro-esophageal reflux disease without esophagitis; F41.9 Anxiety disorder, unspecified; F25.0 Schizoaffective disorder, bipolar type; F17.200 Nicotine dependence, unspecified, uncomplicated; Z86.19 Personal history of other infectious and parasitic diseases; Z79.899 Other long term (current) drug therapy; Y90.8 Blood alcohol level of 240 mg/100 ml or more
CPT/HCPCS: 96376; 96372; 96374; 99285; 36415; 80053; 80048; 83690; 83735; 84100; 85025 ×2; G0378 ×2; G0480; J2060 ×2; J1650; 80320

== ENCOUNTER 2023-10-15 18:53 | Inpatient (IN) | payer MEDICAID, OTHER ==
--- NOTE | 2023-10-15 19:28 | ED ---
General Adult HPI - General Stated complaint: Mental Health Time Seen by Provider: 10/15/23 18:58 Source: patient, EMS, RN notes reviewed, old records reviewed Mode of arrival: EMS Limitations: no limitations - History of Present Illness Initial comments: 37-year-old male with suicide attempt. States that he was drinking alcohol and taking fentanyl and attempt to commit suicide. He states he snorted fentanyl. He was transported by paramedics, did not require Narcan here patient is somewhat somnolent but able to answer questions upon arrival. He is hungry stating that he hasn't eaten in the past 24 hours. Patient is currently homeless. - Related Data Previous Rx's Medication Instructions Recorded Haloperidol Decanoate [Haldol D] 200 mg IM Q14D 1 Days #1 each 07/10/23 Allergies Allergy/AdvReac Type Severity Reaction Status Date / Time No Known Allergies Allergy Verified 10/15/23 21:08 Review of Systems ROS Statement: Those systems with pertinent positive or pertinent negative responses have been documented in the HPI. ROS Other: All systems not noted in ROS Statement are negative. Past Medical History Past Medical History: GERD/Reflux, Hypertension, Liver Disease, Skin Disorder Additional Past Medical History / Comment(s): Hepatitis C, Pancreatitis, DDD, back pain, bilateral carpel tunnel syndrome. In the past has reported that he has heart disease that was found when he had kidney problems but he denies having a stress test or cardiac catheterization. History of Any Multi-Drug Resistant Organisms: None Reported MDRO Source:: unknown Past Surgical History: No Surgical Hx Reported, Unable to Obtain Additional Past Surgical History / Comment(s): Pt states he has had numerous "cysts" removed from where he injected IV drugs. Past Anesthesia/Blood Transfusion Reactions: No Reported Reaction, Unable to Obtain Additional Past Anesthesia/Blood Transfusion Reaction / Comment(s): In the past pt reported that he has never had surgery Past Psychological History: Anxiety, Bipolar, Depression, Schizophrenia Smoking Status: Current every day smoker Past Alcohol Use History: Abuse Past Drug Use History: Marijuana, Methamphetamine, Opiates - Past Family History Mother Family Medical History: Unable to Obtain, Rheumatoid Arthritis (RA) Additional Family Medical History / Comment(s): Mother is . Father Family Medical History: Coronary Artery Disease (CAD) General Exam General appearance: alert, appears intoxicated Head exam: Present: atraumatic, normocephalic Eye exam: Present: normal appearance, PERRL ENT exam: Present: normal exam Neck exam: Present: normal inspection. Absent: tenderness, meningismus Respiratory exam: Present: normal lung sounds bilaterally. Absent: respiratory distress, wheezes Cardiovascular Exam: Present: regular rate, normal rhythm GI/Abdominal exam: Present: soft. Absent: distended, tenderness Extremities exam: Present: normal inspection Neurological exam: Present: alert, oriented X3, CN II-XII intact. Absent: motor sensory deficit Psychiatric exam: Present: depressed, flat affect, suicidal ideation Skin exam: Present: warm, dry, intact Course Vital Signs 10/15/23 18:58 Temperature 97.0 F L Pulse Rate 95 Respiratory 14 Rate Blood Pressure 149/91 O2 Sat by Pulse 95 Oximetry Medical Decision Making - Medical Decision Making Was pt. sent in by a medical professional or institution (, PA, GEOCHEMISTRY TEACHER, urgent care, hospital, or alf...) When possible be specific @ -No Did you speak to anyone other than the patient for history (EMS, parent, family, police, friend...)? What history was obtained from this source @ -No Did you review nursing and triage notes (agree or disagree)? Why? @ -I reviewed and agree with nursing and triage notes Were old charts reviewed (outside hosp., previous admission, EMS record, old EKG, old radiological studies, urgent care reports/EKG's, alf records)? Report findings @ -No old charts were reviewed Differential Diagnosis (chest pain, altered mental status, abdominal pain women, abdominal pain men, vaginal bleeding, weakness, fever, dyspnea, syncope, headache, dizziness, GI bleed, back pain, seizure, CVA, palpatations, mental health, musculoskeletal)? @ -Differential Mental Health Depression, anxiety, bipolar, psychosis, schizophrenia, borderline personality, situational depression, adjustment disorder, behavioral disorder, brain tumor, malingering, substance abuse, encephalopathy, medication reaction, dementia, hypothyroidism, degenerative neurologic disorder, lupus.... This is not meant to be all-inclusive list EKG interpreted by me (3pts min.). @ -As above X-rays interpreted by me (1pt min.). @ -None done CT interpreted by me (1pt min.). @ -None done U/S interpreted by me (1pt. min.). @ -None done What testing was considered but not performed or refused? (CT, X-rays, U/S, labs)? Why? @ -None What meds were considered but not given or refused? Why? @ -None Did you discuss the management of the patient with other professionals (professionals i.e. , PA, GEOCHEMISTRY TEACHER, lab, RT, psych nurse, secondary social studies teacher, strip stamp straightener, teacher, public health service officer, heel caser)? Give summary @ -No Was smoking cessation discussed for >3mins.? @ -No Was critical care preformed (if so, how long)? @ -No Were there social determinants of health that impacted care today? How? (Homelessness, low income, unemployed, alcoholism, drug addiction, transportation, low edu. Level, literacy, decrease access to med. care, assisted, rehab)? @ -No Was there de-escalation of care discussed even if they declined (Discuss DNR or withdrawal of care, Hospice)? DNR status @ -No What co-morbidities impacted this encounter? (DM, HTN, Smoking, COPD, CAD, Cancer, CVA, ARF, Chemo, Hep., AIDS, mental health diagnosis, sleep apnea, morbid obesity)? @ Illicit drug abuse, alcohol abuse, homeless Was patient admitted / discharged? Hospital course, mention meds given and route, prescriptions, significant lab abnormalities, going to OR and other pertinent info. @ Patient care signed out to oncoming physician awaiting sobriety and EPS evaluation. Disposition Clinical Impression: Suicide attempt, Drug overdose Disposition: ADMITTED IP TO THIS [facility] Condition: Stable Is patient prescribed a controlled substance at d/c from ED?: No Referrals: None,Stated [Primary Care Provider] - 1-2 days Time of Disposition: 22:16
[2023-10-15] MEDS ORDERED: LORazepam 1 MG TAB PO STA (23:33)
[2023-10-16] MEDS ORDERED: LORazepam 1 MG TAB PO STA ×3 (00:16→14:20)
[2023-10-16 09:07] LABS: Amphetamine Screen,Urine Detected (NotDetected); Barbiturate Screen,Urine Not Detected (NotDetected); Benzodiazepines Screen,Urine Detected (NotDetected); Cocaine Screen,Urine Not Detected (NotDetected); Methadone Screen, Urine Not Detected (NotDetected); Opiate Screen,Urine Not Detected (NotDetected); Oxycodone Screen, Urine Not Detected (NotDetected); Phencyclidine Screen,Urine Not Detected (NotDetected); Tricyclic Antidepressant,Urine Not Detected (NotDetected); Urn Cannabinoid Scrn Detected (NotDetected)
[2023-10-16] MEDS ORDERED: MAGNESIUM HYDROXIDE 2,400 MG/30 ML CUP PO PRN (14:35)
[2023-10-16] MEDS ORDERED: MAG HYDROX/AL HYDROX/SIMETH 30 ML CUP PO PRN (14:35)
[2023-10-16] MEDS ORDERED: ACETAMINOPHEN TAB 325 MG TAB PO PRN (14:35)
[2023-10-16] MEDS ORDERED: chlorproMAZINE 25 MG/ML 2 ML AMP IM PRN (14:43)
[2023-10-16] MEDS: chlorproMAZINE 25 MG TAB PO PRN ×2 (15:33→23:03)
[2023-10-16] MEDS: IBUPROFEN 600 MG TAB PO PRN (15:33)
[2023-10-16] MEDS: NICOTINE 14MG/24HR PATCH TRANSDERM SCH (15:55)
[2023-10-17] MEDS ORDERED: cloNIDine HCL 0.2 MG TAB PO PRN (06:43)
--- NOTE | 2023-10-17 06:45 | P.MDCNMH ---
History of Present Illness H&P Date: 10/17/23 Chief Complaint: medical eval,hypertension management 37 year old male with hypertension patient coming in for suicidal ideation after heavy alcohol consumption and using fentanyl . , he was brought in by EMS , did not require narcan. patient otherwise, does not participate in the interview his chart review shows elevated blood pressure his urine drug screen positive for amphetamine ,marijuana and benzo review of systems unable to obtain on exam Constitutional: arousable to verbal stimulation , sleepy Eyes: Anicteric sclerae, moist conjunctiva, Pupils equal round reactive to light ENMT: NC/AT Oropharynx clear, no erythema, or exudates Lungs: Clear to auscultation Clear to percussion Normal respiratory effort, no accessory muscle use Cardiovascular: Heart regular in rate and rhythm, No murmurs, gallops, or rubs No peripheral edema Abdominal: Soft Nontender, no guarding, rebound or rigidity Abdomen moving with respiration Normoactive bowel sounds Extremities: No digital cyanosis No clubbing Pedal pulses intact and symmetrical Radial pulses intact and symmetrical No calf tenderness Psychiatric: sleepy , responds to verbal stimulation , does not participate with history Neuro Muscles Strength 5/5 in all 4 extremities Lymphatics: no palpable cervical or supraclavicular lymph nodes Past Medical History Past Medical History: GERD/Reflux, Hypertension, Liver Disease, Skin Disorder Additional Past Medical History / Comment(s): Hepatitis C, Pancreatitis, DDD, back pain, bilateral carpel tunnel syndrome. In the past has reported that he has heart disease that was found when he had kidney problems but he denies having a stress test or cardiac catheterization. History of Any Multi-Drug Resistant Organisms: None Reported MDRO Source:: unknown Past Surgical History: No Surgical Hx Reported, Unable to Obtain Additional Past Surgical History / Comment(s): Pt states he has had numerous "cysts" removed from where he injected IV drugs. Past Anesthesia/Blood Transfusion Reactions: No Reported Reaction, Unable to Obtain Additional Past Anesthesia/Blood Transfusion Reaction / Comment(s): In the past pt reported that he has never had surgery Past Psychological History: Anxiety, Bipolar, Depression, Schizophrenia Smoking Status: Current every day smoker Past Alcohol Use History: Abuse Past Drug Use History: Marijuana, Methamphetamine, Opiates - Past Family History Mother Family Medical History: Unable to Obtain, Rheumatoid Arthritis (RA) Additional Family Medical History / Comment(s): Mother is . Father Family Medical History: Coronary Artery Disease (CAD) Medications and Allergies Home Medications Medication Instructions Recorded Confirmed Type Haloperidol Decanoate [Haldol D] 200 mg IM Q14D 1 Days #1 each 07/10/23 10/15/23 Rx Allergies Allergy/AdvReac Type Severity Reaction Status Date / Time No Known Allergies Allergy Verified 10/15/23 21:08 Physical Exam Vitals: Vital Signs Temp Pulse Pulse Resp BP BP Pulse Ox 10/17/23 06:26 98.0 F 88 18 144/93 99 10/16/23 23:28 98.0 F 107 H 14 151/104 98 10/16/23 15:53 98.0 F 87 18 143/95 97 10/16/23 14:27 80 18 140/80 98 10/16/23 08:36 98 F 84 15 145/90 96 Intake and Output 10/16/23 10/16/23 10/17/23 14:59 22:59 06:59 Other: Weight 82.645 kg Cranial Nerve Examination - Cranial Nerves Cranial Nerve II- Optic: Intact Cranial Nerve III- Oculomotor: Intact Cranial Nerve IV- Trochlear: Intact Cranial Nerve V- Trigeminal: Intact Cranial Nerve - Abducens: Intact Cranial Nerve VII- Facial: Intact Cranial Nerve VIII- Auditory: Intact Cranial Nerve IX- Glossopharyngeal: Intact Cranial Nerve X- Vagus: Intact Cranial Nerve XI- Accessory: Intact Cranial Nerve XII- Hypoglossal: Intact Results CBC & Chem 7: 10/17/23 08:57 10/17/23 08:57 Labs: Abnormal Lab Results - Last 24 Hours (Table) 10/16/23 Range/Units 07:00 Ur Amphetamines Screen Detected H (NotDetected) U Methamphetamines Scrn Detected H (NotDetected) U Benzodiazepines Scrn Detected H (NotDetected) U Marijuana (THC) Screen Detected H (NotDetected) Assessment and Plan Assessment: depression , suicidal ideation management per psych hypertension , uncontrolled initiate amlodipine 5 mg po daily clonidine , 0.2 mg po TID PRN for SBP > 180 polysubstance abuse counseled to quit drug of abuse alcohol abuse , monitor for withdrawal syndrome benzo per ciwa thiamine blood work reviewed , unremarkable WBC 6 , Hgb 15 BUN 10 Cr 0.6 LDL 80 TSH 2 covid negative thank you for this consultation
[2023-10-17] MEDS: amLODIPine 5 MG TAB PO SCH (08:32)
[2023-10-17] MEDS: NICOTINE 14MG/24HR PATCH TRANSDERM SCH (08:32)
[2023-10-17] MEDS: chlorproMAZINE 25 MG TAB PO PRN ×2 (08:32→13:15)
[2023-10-17] MEDS: IBUPROFEN 600 MG TAB PO PRN (09:09)
[2023-10-17 09:42] LABS: Basophils % (A) 0 %; Eosinophils # (A) 0.1 k/uL (0-0.7); Eosinophils % (A) 2 %; HCT 45.1 % (39.0-53.0); Lymphocytes # (A) 2.3 k/uL (1.0-4.8); Lymphocytes % (A) 36 %; MCH 28.3 pg (25.0-35.0); MCHC 33.3 g/dL (31.0-37.0); MCV 85.1 fL (80.0-100.0); Mean Platelet Volume 9.4; Monocytes # (A) 0.4 k/uL (0-1.0); Monocytes % (A) 6 %; Neutrophils # (A) 3.4 k/uL (1.3-7.7); Neutrophils % (A) 53 %; Platelet Count 271 k/uL (150-450); RDW 15.5 % (11.5-15.5); WBC 6.4 k/uL (3.8-10.6)
[2023-10-17 09:53] LABS: ALT 17 U/L (4-49); AST 26 U/L (17-59); African American GFR (CKD) >90 (>60 ml/min/1.73 sqM); Albumin 4.2 g/dL (3.5-5.0); Alkaline Phosphatase 60 U/L (38-126); Anion Gap 12 mmol/L; Bilirubin, Delta 0.3 mg/dL (0.0-0.2); Bilirubin,Unconjugated 0.4 mg/dL (0.0-1.1); Blood Urea Nitrogen 10 mg/dL (9-20); Calcium 9.8 mg/dL (8.4-10.2); Carbon Dioxide 20 mmol/L (22-30); Chloride 106 mmol/L (98-107); Glucose 123 mg/dL (74-99); Non-African American GFR(CKD) >90 (>60 ml/min/1.73 sqM); Potassium 4.5 mmol/L (3.5-5.1); Sodium 138 mmol/L (137-145); Total Bilirubin 0.7 mg/dL (0.2-1.3); Total Protein 7.7 g/dL (6.3-8.2)
[2023-10-17] MEDS ORDERED: chlorproMAZINE 25 MG TAB PO ONE (11:30)
[2023-10-17] MEDS: VENLAFAXINE HCL ER 75 MG CAP PO SCH (13:15)
--- NOTE | 2023-10-17 14:10 | P.HP ---
Psychiatric H&P - . H&P Date: 10/17/23 History & Physical: Allergies Allergy/AdvReac Type Severity Reaction Status Date / Time No Known Allergies Allergy Verified 10/15/23 21:08 Vital Signs Temp 98.0 F 10/17/23 06:26 Pulse 88 10/17/23 06:26 Resp 18 10/17/23 06:26 BP 144/93 10/17/23 06:26 Pulse Ox 99 10/17/23 06:26 FiO2 Intake & Output 10/16/23 10/17/23 10/17/23 18:59 06:59 18:59 Weight 82.645 kg Laboratory Last Values WBC 6.4 k/uL (3.8-10.6) 10/17/23 08:57 RBC 5.30 m/uL (4.30-5.90) 10/17/23 08:57 Hgb 15.0 gm/dL (13.0-17.5) 10/17/23 08:57 Hct 45.1 % (39.0-53.0) 10/17/23 08:57 MCV 85.1 fL (80.0-100.0) 10/17/23 08:57 MCH 28.3 pg (25.0-35.0) 10/17/23 08:57 MCHC 33.3 g/dL (31.0-37.0) 10/17/23 08:57 RDW 15.5 % (11.5-15.5) 10/17/23 08:57 Plt Count 271 k/uL (150-450) 10/17/23 08:57 MPV 9.4 10/17/23 08:57 Neutrophils % 53 % 10/17/23 08:57 Lymphocytes % 36 % 10/17/23 08:57 Monocytes % 6 % 10/17/23 08:57 Eosinophils % 2 % 10/17/23 08:57 Basophils % 0 % 10/17/23 08:57 Neutrophils # 3.4 k/uL (1.3-7.7) 10/17/23 08:57 Lymphocytes # 2.3 k/uL (1.0-4.8) 10/17/23 08:57 Monocytes # 0.4 k/uL (0-1.0) 10/17/23 08:57 Eosinophils # 0.1 k/uL (0-0.7) 10/17/23 08:57 Basophils # 0.0 k/uL (0-0.2) 10/17/23 08:57 Sodium 138 mmol/L (137-145) 10/17/23 08:57 Potassium 4.5 mmol/L (3.5-5.1) 10/17/23 08:57 Chloride 106 mmol/L (98-107) 10/17/23 08:57 Carbon Dioxide 20 mmol/L (22-30) L 10/17/23 08:57 Anion Gap 12 mmol/L 10/17/23 08:57 BUN 10 mg/dL (9-20) 10/17/23 08:57 Creatinine 0.60 mg/dL (0.66-1.25) L 10/17/23 08:57 Est GFR (CKD-EPI)AfAm >90 (>60 ml/min/1.73 sqM) 10/17/23 08:57 Est GFR (CKD-EPI)NonAf >90 (>60 ml/min/1.73 sqM) 10/17/23 08:57 Glucose 123 mg/dL (74-99) H 10/17/23 08:57 Calcium 9.8 mg/dL (8.4-10.2) 10/17/23 08:57 Total Bilirubin 0.7 mg/dL (0.2-1.3) 10/17/23 08:57 Conjugated Bilirubin 0.0 mg/dL (0.0-0.3) 10/17/23 08:57 Unconjugated Bilirubin 0.4 mg/dL (0.0-1.1) 10/17/23 08:57 Delta Bilirubin 0.3 mg/dL (0.0-0.2) H 10/17/23 08:57 AST 26 U/L (17-59) 10/17/23 08:57 ALT 17 U/L (4-49) 10/17/23 08:57 Alkaline Phosphatase 60 U/L (38-126) 10/17/23 08:57 Total Protein 7.7 g/dL (6.3-8.2) 10/17/23 08:57 Albumin 4.2 g/dL (3.5-5.0) 10/17/23 08:57 TSH 2.010 mIU/L (0.465-4.680) 10/17/23 08:57 Urine Opiates Screen Not Detected (NotDetected) 10/16/23 07:00 Ur Oxycodone Screen Not Detected (NotDetected) 10/16/23 07:00 Urine Methadone Screen Not Detected (NotDetected) 10/16/23 07:00 Ur Propoxyphene Screen Not Detected (NotDetected) 10/16/23 07:00 Ur Barbiturates Screen Not Detected (NotDetected) 10/16/23 07:00 U Tricyclic Antidepress Not Detected (NotDetected) 10/16/23 07:00 Ur Phencyclidine Scrn Not Detected (NotDetected) 10/16/23 07:00 Ur Amphetamines Screen Detected (NotDetected) H 10/16/23 07:00 U Methamphetamines Scrn Detected (NotDetected) H 10/16/23 07:00 U Benzodiazepines Scrn Detected (NotDetected) H 10/16/23 07:00 Urine Cocaine Screen Not Detected (NotDetected) 10/16/23 07:00 U Marijuana (THC) Screen Detected (NotDetected) H 10/16/23 07:00 SARS-CoV-2 (PCR) Not Detected (Not Detectd) 10/16/23 08:36 IDENTIFYING DATA: Patient is a 37-year-old male. Single, homeless, unemployed HPI: Patient presented to the ED 10/15, and as per ED note "37-year-old male with suicide attempt. States that he was drinking alcohol and taking fentanyl and attempt to commit suicide. He states he snorted fentanyl. He was transported by paramedics, did not require Narcan here patient is somewhat somnolent but able to answer questions upon arrival." Patient was admitted voluntarily to the mental health unit. he states he was feeling suicidal because his girlfriend left him last week. States he went and got some fentanyl and snorted it to kill himself. He then passed out and when he woke up, he called 911. Patient is very med seeking, requesting injections of thorazine. States he is "ready to jump out of his skin". States his sleep is not good. Patient admits to using methamphetamines, benzodiazepines, opiates, nicotine. poor hygiene and grooming. Patient admits to using alcohol daily. Patient denies AH/VH, feels suicidal and homicidal towards "everyone". PAST PSYCHIATRIC HISTORY: he has a hx of several suicide attempts and drugs overdoses. Got his haldol shot last week at [facility]. Sees Ranulfo Hamilton, and Dr Mckeon at [facility]. patients last psychiatric hospitaliztion was in june 2023. PMH: Past Medical History: No Reported History, Unable to Obtain, GERD/Reflux, Hypertension, Liver Disease Additional Past Medical History / Comment(s): Hepatitis C, DDD, back pain, bilateral carpel tunnel syndrome. He reports that he has heart disease that was found when he had kidney problems but he denies having a stress test or cardiac catheterization. History of Any Multi-Drug Resistant Organisms: None Reported MDRO Source:: unknown Past Surgical History: No Surgical Hx Reported, Unable to Obtain Additional Past Surgical History / Comment(s): Pt states he has had numerous "cysts" removed from where he injected IV drugs. Past Anesthesia/Blood Transfusion Reactions: No Reported Reaction, Unable to Obtain Additional Past Anesthesia/Blood Transfusion Reaction / Comment(s): Pt states he has never had surgery. Past Psychological History: Anxiety, Depression Smoking Status: Current every day smoker Past Alcohol Use History: None Reported Past Drug Use History: Heroin, Marijuana, Methamphetamine ALLERGIES: NO KNOWN DRUG ALLERGIES CHEMICAL DEPENDENCY HISTORY: Patient uses marijuana, methamphetamines, and amphetamines. He is also a daily tobacco user. He reported a heavy history of etoh abuse in the past, FAMILY PSYCHIATRIC/SUBSTANCE USE HISTORY: No reported family psychiatric history SOCIAL HISTORY: Patient born and raised in [place] . Patient is currently homeless. He is . He has his GED. no children, does not work. MENTAL STATUS EXAM: General Appearance: Patient appears to be stated age is alert, directable, and attempts to cooperate. Wearing hospital gown, several tattoos. Patient appears to have disheveled hygiene and grooming. Behavior: Patient is seated without any agitated behavior. Patient displays medication seeking behavior. superficial. Speech: Patient's speech is fluent and nonpressured. Monotone. Mood/Affect: Patient reports their mood is depressed and anxious, affect is constricted Suicidality/Homicidality: Patient endorses suicidal ideation. He endorses homicidal ideation. Perceptions: Patient denies any visual hallucinations and denies any auditory hallucinations Though content/process: There is no evidence of any delusional thought content and thought process is linear and goal-directed. focused on medications. concrete Memory and concentration: AOX3, grossly intact for the purposes of this session. Can spell "WORLD" backwards Judgment and insight: chronically poor/impulsive STRENGTHS/WEAKNESSES: strength is that patient has access to medical care. Weakness is that the patient is a heavy user substances and very poor insight/judgment. INTELLECT: average IMPRESSIONS: Schizoaffective disorder, depressive type Methamphetamine use disorder Cannabis use disorder Alcohol abuse Benzodiazapine abuse Nicotine dependence Malingering Homelessness PLAN: -Patient is admitted under voluntary status to MHU for stabilization of psychiatric symptoms and safety. Patient did not sign med consent form -Medications : Effexor 75 mg daily for mood/anxiety Remeron 15mg qhs for insomnia/mood Haldol D 200mg q 14 days, next dose due 10/20 -Thorazine 100mg tid for psychosis/agression -Patient was counselled on substance abuse however is pre-contemplative -Patient was informed of the risks, benefits and side effects of the medication and patient verbally consented to taking the medications however did not sign the med consent -Internal Medicine consult to perform medical evaluation and physical. -NRT - nicotine patch - on board for discharge planning. Encourage patient to participate in groups to work on coping skills. 10/17/23 12:58 10/17/23 14:08
[2023-10-17 16:03] LABS: Chol/HDL Ratio 4.19 Ratio; LDL Cholesterol,Calculated 80.6 mg/dL (0.0-131.0)
[2023-10-17] MEDS: MIRTAZAPINE 15 MG TAB PO SCH (20:40)
[2023-10-18] MEDS: NICOTINE 14MG/24HR PATCH TRANSDERM SCH (08:15)
[2023-10-18] MEDS: IBUPROFEN 600 MG TAB PO PRN (08:16)
[2023-10-18] MEDS: chlorproMAZINE 25 MG TAB PO PRN ×3 (08:16→20:26)
[2023-10-18] MEDS: amLODIPine 5 MG TAB PO SCH (08:16)
[2023-10-18] MEDS: VENLAFAXINE HCL ER 75 MG CAP PO SCH (08:16)
[2023-10-18] MEDS: LORazepam 1 MG TAB PO PRN (09:12)
--- NOTE | 2023-10-18 10:12 | P.PN ---
Progress Note - Text Progress Note Date: 10/18/23 Interval History: Patient was seen at bedside.. Patient states he is sleeping well, and his appetite is good. continues to have a constircted affect. At this time patient denies any suicidal or homical ideations, intent or plan. Patient denies any auditory, visual hallucinations and denies any paranoia or delusions. Patient denies any side effects from the medications and has been compliant with meds. Still continues to be med seeking. continues to endorse severe anxiety. Mental status exam: General Appearance: Patient appears to be stated age is alert, directable, and attempts to cooperate. Wearing hospital gown, several tattoos. Patient appears to have disheveled hygiene and grooming. Behavior: Patient is seated without any agitated behavior. Patient displays medication seeking behavior. superficial. Speech: Patient's speech is fluent and nonpressured. Monotone. Mood/Affect: Patient reports their mood is depressed and anxious, affect is constricted Suicidality/Homicidality: Patient endorses suicidal ideation. He endorses homicidal ideation. Perceptions: Patient denies any visual hallucinations and denies any auditory hallucinations Though content/process: There is no evidence of any delusional thought content and thought process is linear and goal-directed. focused on medications. concrete Memory and concentration: AOX3, grossly intact for the purposes of this session Judgment and insight: chronically poor/impulsive Assessment Schizoaffective disorder, depressive type Methamphetamine use disorder Cannabis use disorder Alcohol abuse Benzodiazapine abuse Nicotine dependence Malingering Homelessness Plan:- Patient is admitted under voluntary status to MHU for stabilization of psychiatric symptoms and safety. Patient did not sign med consent form -Medications : Effexor 75 mg daily for mood/anxiety Remeron 15mg qhs for insomnia/mood Haldol D 200mg q 14 days, next dose due 10/20 -Thorazine 100 mg tid prn for psychosis/agression -NRT - nicotine patch -SW on board for discharge planning. Encourage patient to participate in groups to work on coping skills.
[2023-10-18] MEDS: MIRTAZAPINE 15 MG TAB PO SCH (20:25)
[2023-10-19] MEDS: VENLAFAXINE HCL ER 75 MG CAP PO SCH (07:54)
[2023-10-19] MEDS: NICOTINE 14MG/24HR PATCH TRANSDERM SCH (07:54)
[2023-10-19] MEDS: amLODIPine 5 MG TAB PO SCH (07:54)
[2023-10-19] MEDS: IBUPROFEN 600 MG TAB PO PRN (07:55)
[2023-10-19] MEDS: chlorproMAZINE 25 MG TAB PO PRN ×2 (07:55→15:04)
[2023-10-19] MEDS: LORazepam 1 MG TAB PO PRN ×2 (08:49→20:43)
--- NOTE | 2023-10-19 09:59 | P.PN ---
Progress Note - Text Progress Note Date: 10/19/23 Interval History: Patient was seen at bedside today and was agreeable to speak to newswriter.patient was focused on meds and also on d/c. continues to have very poor insight and judgment. Patient states he is sleeping well, and his appetite is good. continues to have a constircted affect. At this time patient denies any suicidal or homical ideations, intent or plan. Patient denies any auditory, visual hallucinations and denies any paranoia or delusions. Patient denies any side effects from the medications and has been compliant with meds. Still continues to be med seeking. continues to endorse severe anxiety. Mental status exam: General Appearance: Patient appears to be stated age is alert, directable, and attempts to cooperate. Wearing hospital gown, several tattoos. Patient appears to have mildly improving hygiene and grooming. Behavior: Patient is seated without any agitated behavior. Patient displays medication seeking behavior. superficial, improving mildly Speech: Patient's speech is fluent and nonpressured. Monotone. Mood/Affect: Patient reports their mood is improving mildly, affect is constricted Suicidality/Homicidality: Patient endorses suicidal ideation. He endorses homicidal ideation. Perceptions: Patient denies any visual hallucinations and denies any auditory hallucinations Though content/process: There is no evidence of any delusional thought content and thought process is linear and goal-directed. focused on medications. concrete Memory and concentration: AOX3, grossly intact for the purposes of this session Judgment and insight: chronically poor/impulsive, improving mildly Assessment Schizoaffective disorder, depressive type Methamphetamine use disorder Cannabis use disorder Alcohol abuse Benzodiazapine abuse Nicotine dependence Malingering Homelessness Plan:- Patient is admitted under voluntary status to MHU for stabilization of psychiatric symptoms and safety. Patient did not sign med consent form -Medications : Effexor 75 mg daily for mood/anxiety Remeron 15mg qhs for insomnia/mood Haldol D 200mg q 14 days, next dose due 10/20 -Thorazine 100 mg tid prn for psychosis/agression -NRT - nicotine patch -SW on board for discharge planning. Encourage patient to participate in groups to work on coping skills. likely discharge early next week.
[2023-10-19] MEDS ORDERED: ZIPRASIDONE 20 MG VIAL IM STA (10:20)
[2023-10-19] MEDS ORDERED: ZIPRASIDONE 20 MG VIAL IM ONE (10:21)
[2023-10-19] MEDS: MIRTAZAPINE 15 MG TAB PO SCH (20:43)
[2023-10-20] MEDS: chlorproMAZINE 25 MG TAB PO PRN (05:32)
[2023-10-20 07:09] VITALS: BP 144/74; PULSE 122; RESP 16; TEMP 97.3
[2023-10-20] MEDS: LORazepam 1 MG TAB PO PRN (07:34)
[2023-10-20] MEDS: IBUPROFEN 600 MG TAB PO PRN (07:35)
[2023-10-20] MEDS ORDERED: HALOPERIDOL DECANOATE 100 MG/ML 1 ML VIAL IM SCH (09:00)
[2023-10-20] MEDS ORDERED: ZIPRASIDONE 20 MG VIAL IM PRN (09:57)
[2023-10-20] MEDS: NICOTINE 14MG/24HR PATCH TRANSDERM SCH (10:16)
[2023-10-20] MEDS: amLODIPine 5 MG TAB PO SCH (10:17)
[2023-10-20] MEDS: VENLAFAXINE HCL ER 75 MG CAP PO SCH (10:17)
--- NOTE | 2023-10-20 10:25 | P.PN ---
Progress Note - Text Progress Note Date: 10/20/23 Interval History: Patient was seen at bedside today and was agreeable to speak to program writer. Patient focused on discharge. Patient does admit to being homeless and living on the streets. continues to have very poor insight and judgment. Patient states he needs to be at [facility] Monday to take a survey to get $40, to pay for a place to live for a week. Patient states he is sleeping well, and his appetite is good. continues to have a constircted affect. At this time patient denies any suicidal or homical ideations, intent or plan. Patient denies any auditory, visual hallucinations and denies any paranoia or delusions. Patient denies any side effects from the medications and has been compliant with meds. continues to be med seeking. we spoke about giving patient his PENA over the weekend as scheduled and he was agreeable to it. Mental status exam: General Appearance: Patient appears to be stated age is alert, directable, and attempts to cooperate. Wearing hospital gown, several tattoos. Patient appears to have mildly improving hygiene and grooming. Behavior: Patient is seated without any agitated behavior. Patient displays medication seeking behavior. superficial, improving mildly Speech: Patient's speech is fluent and nonpressured. Monotone. mildly improving Mood/Affect: Patient reports their mood is improving mildly, affect is constricted Suicidality/Homicidality: Patient endorses suicidal ideation. He endorses homicidal ideation. Perceptions: Patient denies any visual hallucinations and denies any auditory hallucinations Though content/process: There is no evidence of any delusional thought content and thought process. focused on medications and also discharge. concrete Memory and concentration: AOX3, grossly intact for the purposes of this session Judgment and insight: chronically poor/impulsive, improving mildly Assessment Schizoaffective disorder, depressive type Methamphetamine use disorder Cannabis use disorder Alcohol abuse Benzodiazapine abuse Nicotine dependence Malingering Homelessness Plan:- Patient is admitted under voluntary status to [facility]HU for stabilization of psychiatric symptoms and safety. Patient did not sign med consent form -Medications : Effexor 75 mg daily for mood/anxiety, Remeron 15mg qhs for insomnia/mood Haldol D 200mg q 14 days, next dose due 10/20 -Thorazine 100 mg tid prn for psychosis/agression -NRT - nicotine patch -SW on board for discharge planning. Encourage patient to participate in groups to work on coping skills. likely discharge monday once patient receives PENA.
--- NOTE | 2023-10-20 11:35 | P.DS ---
Providers Date of admission: 10/16/23 14:31 Expected date of discharge: 10/20/23 Attending physician: Gamal Ruvalcaba MD Consults: 10/16/23 14:35 Consult Physician Routine Consulting Provider: Doron James Consult Reason/Comments: History and physical, medical management Do you want consulting provider notified?: Yes Primary care physician: Stated None - Discharge Diagnosis(es) (1) Schizoaffective disorder, depressive type Current Visit: Yes Status: Acute Priority: High (2) Methamphetamine use disorder, moderate, dependence Current Visit: Yes Status: Acute Priority: High (3) Cannabis use disorder Current Visit: Yes Status: Acute Priority: High (4) Alcohol abuse Current Visit: Yes Status: Acute Priority: High (5) Benzodiazepine abuse Current Visit: Yes Status: Acute Priority: Medium (6) Nicotine dependence Current Visit: Yes Status: Acute Priority: Low (7) Malingering Current Visit: Yes Status: Acute Priority: Medium (8) Homelessness Current Visit: Yes Status: Acute Priority: Medium Hospital Course: Admission HPI: Admission note was completed by commercial lines underwriter. Patient presented to the ED 10/15, and as per ED note "37-year-old male with suicide attempt. States that he was drinking alcohol and taking fentanyl and attempt to commit suicide. He states he snorted fentanyl. He was transported by paramedics, did not require Narcan here patient is somewhat somnolent but able to answer questions upon arrival." Patient was admitted voluntarily to the mental health unit. he states he was feeling suicidal because his girlfriend left him last week. States he went and got some fentanyl and snorted it to kill himself. He then passed out and when he woke up, he called 911. Patient is very med seeking, requesting injections of thorazine. States he is "ready to jump out of his skin". States his sleep is not good. Patient admits to using methamphetamines, benzodiazepines, opiates, nicotine. poor hygiene and grooming. Patient admits to using alcohol daily. Patient denies AH/VH, feels suicidal and homicidal towards "everyone". Hospital course: Upon admission to the unit patient was directable and agreeable to commence treatment and signed adult voluntary form. Patient mainly was isolative, med seeking and also focus on discharge or part-time treatment eventually got along well with other patients on the unit and followed unit protocol. Patient was c ompliant with the medications and denied any side effects throughout hospital course. Patient was started on Effexor 75 mg daily for mood/anxiety, Remeron 15 mg daily at bedtime for insomnia/mood. Patient is currently on Haldol D2 100 mg every 14 days to ensure compliance, given dose on the unit on 10 20, next dose will be due on 11/03 at [facility]. Patient spoke of his stressors and engaged in therapy both group and individual. Patient was also seen by medical team for history and physical exam. Throughout the course of the hospitalization patient gradually improved with regards to mood, anxiety, psychosis, aggression, sleep and returned back to their baseline level of functioning. On the day of discharge patient denied any suicidal or homicidal ideations intent or plan denied any auditory or visual hallucinations. Patient endorsed wanting to live for his health and family. The patient denied any access to guns or weapons. Patient denied any paranoia and did not endorse any delusions. Patient does have a significant history of substance abuse and was counseled on abstaining from all substances including alcohol and marijuana. Patient was offered however declined inpatient substance-abuse rehab. Patient elected to do outpatient substance use treatment program through [facility]. Patient was also counseled on the medications and need for regular compliance and was encouraged to follow-up with their outpatient appointment for mental health and also for primary care. Patient is currently homeless, will be given [facility] referral today Mental status exam: General Appearance: Patient appears to be older than, stated age is alert, attempts to be cooperative. Patient is in no acute distress and has improved hygiene and grooming Behavior: Patient is calmly seated without any agitated behavior. Speech: Patient's speech is fluent and nonpressured. Mood/Affect: Patient reports their mood is "ok now", affect is congruent Suicidality/Homicidality: Patient denies having any suicidal or homicidal ideation intent or plan. Perceptions: Patient denies any auditory or visual hallucinations. Though content/process: There is no evidence of any delusional thought content and thought process is linear and goal-directed. concrete, focused on discharge Memory and concentration: AOX3, grossly intact for the purposes of this session. Can spell "WORLD" backwards correctly. Judgment and insight: chronically poor/impuslive, however has improved with guarded prognosis Impression: Schizoaffective disorder, depressive type Methamphetamine use disorder Cannabis use disorder Alcohol abuse Benzodiazapine abuse Nicotine dependence Malingering Homelessness Plan: -Continue with discharge today as patient has improved and stabilized psychiatrically and is not currently an imminent threat to himself and/or others. Patient will remain at chronically elevated risk for harm to self and/or others due to his impulsivity and polysubstance abuse. -Continue medications: Continue Effexor 75 mg daily for mood/anxiety, Remeron 15 mg daily at bedtime for insomnia/mood, Haldol D2 100 mg every 14 days, dose was given in the hospital on 10/20, next dose will be due on 11/03 at [facility]. patient was offered etoh cravings meds however declined. -Patient was counseled on the need for medication compliance and appropriate follow-up at mental health and also primary care for medical issues. Patient verbalized understanding and agreed. -Social work to help coordinate patient's discharge today to [facility]. Social work also to arrange for patients follow up appointments with [facility] for psychiatric care along with follow up with primary care provider. -Patient counseled on abstaining from recreational drugs and marijuana and alcohol. Was informed/educated on the adverse effects on their physical and m ental health. Patient verbally agreed and understood. Patient was offered substance abuse treatment however declined at this time. -Patient was instructed to return to the hospital or seek immediate medical care if their psychiatric or medical symptoms do worsen or reoccur. Abnormal Labs 10/16/23 10/17/23 07:00 08:57 Carbon Dioxide 20 L Creatinine 0.60 L Glucose 123 H Delta Bilirubin 0.3 H HDL Cholesterol 33.20 L Ur Amphetamines Screen Detected H U Methamphetamines Scrn Detected H U Benzodiazepines Scrn Detected H U Marijuana (THC) Screen Detected H Laboratory Results WBC 6.4 k/uL (3.8-10.6) 10/17/23 08:57 RBC 5.30 m/uL (4.30-5.90) 10/17/23 08:57 Hgb 15.0 gm/dL (13.0-17.5) 10/17/23 08:57 Hct 45.1 % (39.0-53.0) 10/17/23 08:57 MCV 85.1 fL (80.0-100.0) 10/17/23 08:57 MCH 28.3 pg (25.0-35.0) 10/17/23 08:57 MCHC 33.3 g/dL (31.0-37.0) 10/17/23 08:57 RDW 15.5 % (11.5-15.5) 10/17/23 08:57 Plt Count 271 k/uL (150-450) 10/17/23 08:57 MPV 9.4 10/17/23 08:57 Neutrophils % 53 % 10/17/23 08:57 Lymphocytes % 36 % 10/17/23 08:57 Monocytes % 6 % 10/17/23 08:57 Eosinophils % 2 % 10/17/23 08:57 Basophils % 0 % 10/17/23 08:57 Neutrophils # 3.4 k/uL (1.3-7.7) 10/17/23 08:57 Lymphocytes # 2.3 k/uL (1.0-4.8) 10/17/23 08:57 Monocytes # 0.4 k/uL (0-1.0) 10/17/23 08:57 Eosinophils # 0.1 k/uL (0-0.7) 10/17/23 08:57 Basophils # 0.0 k/uL (0-0.2) 10/17/23 08:57 Sodium 138 mmol/L (137-145) 10/17/23 08:57 Potassium 4.5 mmol/L (3.5-5.1) 10/17/23 08:57 Chloride 106 mmol/L (98-107) 10/17/23 08:57 Carbon Dioxide 20 mmol/L (22-30) L 10/17/23 08:57 Anion Gap 12 mmol/L 10/17/23 08:57 BUN 10 mg/dL (9-20) 10/17/23 08:57 Creatinine 0.60 mg/dL (0.66-1.25) L 10/17/23 08:57 Est GFR (CKD-EPI)AfAm >90 (>60 ml/min/1.73 sqM) 10/17/23 08:57 Est GFR (CKD-EPI)NonAf >90 (>60 ml/min/1.73 sqM) 10/17/23 08:57 Glucose 123 mg/dL (74-99) H 10/17/23 08:[address] Glu mg/dL 105 mg/dL 10/17/23 08:57 Hemoglobin A1c 5.3 % (<=6.0) 10/17/23 08:57 Calcium 9.8 mg/dL (8.4-10.2) 10/17/23 08:57 Total Bilirubin 0.7 mg/dL (0.2-1.3) 10/17/23 08:57 Conjugated Bilirubin 0.0 mg/dL (0.0-0.3) 10/17/23 08:57 Unconjugated Bilirubin 0.4 mg/dL (0.0-1.1) 10/17/23 08:57 Delta Bilirubin 0.3 mg/dL (0.0-0.2) H 10/17/23 08:57 AST 26 U/L (17-59) 10/17/23 08:57 ALT 17 U/L (4-49) 10/17/23 08:57 Alkaline Phosphatase 60 U/L (38-126) 10/17/23 08:57 Total Protein 7.7 g/dL (6.3-8.2) 10/17/23 08:57 Albumin 4.2 g/dL (3.5-5.0) 10/17/23 08:57 Triglycerides 126.00 mg/dL (0.00-149.00) 10/17/23 08:57 Cholesterol 139.00 mg/dL (0.00-200.00) 10/17/23 08:57 LDL Cholesterol, Calc 80.6 mg/dL (0.0-131.0) 10/17/23 08:57 VLDL Cholesterol, Calc 25.20 mg/dL (5.00-40.00) 10/17/23 08:57 HDL Cholesterol 33.20 mg/dL (40.00-60.00) L 10/17/23 08:57 Cholesterol/HDL Ratio 4.19 Ratio 10/17/23 08:57 TSH 2.010 mIU/L (0.465-4.680) 10/17/23 08:57 Urine Opiates Screen Not Detected (NotDetected) 10/16/23 07:00 Ur Oxycodone Screen Not Detected (NotDetected) 10/16/23 07:00 Urine Methadone Screen Not Detected (NotDetected) 10/16/23 07:00 Ur Propoxyphene Screen Not Detected (NotDetected) 10/16/23 07:00 Ur Barbiturates Screen Not Detected (NotDetected) 10/16/23 07:00 U Tricyclic Antidepress Not Detected (NotDetected) 10/16/23 07:00 Ur Phencyclidine Scrn Not Detected (NotDetected) 10/16/23 07:00 Ur Amphetamines Screen Detected (NotDetected) H 10/16/23 07:00 U Methamphetamines Scrn Detected (NotDetected) H 10/16/23 07:00 U Benzodiazepines Scrn Detected (NotDetected) H 10/16/23 07:00 Urine Cocaine Screen Not Detected (NotDetected) 10/16/23 07:00 U Marijuana (THC) Screen Detected (NotDetected) H 10/16/23 07:00 SARS-CoV-2 (PCR) Not Detected (Not Detectd) 10/16/23 08:36 Vital Signs Temp 97.3 F L 10/20/23 06:32 Pulse 122 H 10/20/23 06:32 Resp 16 10/20/23 06:32 BP 144/74 10/20/23 06:32 Pulse Ox 97 10/20/23 06:32 FiO2 Allergies Allergy/AdvReac Type Severity Reaction Status Date / Time No Known Allergies Allergy Verified 10/15/23 21:08 Patient Condition at Discharge: Stable Plan - Discharge Summary Discharge Rx Participant: Yes New Discharge Prescriptions: No Action Haloperidol Decanoate [Haldol D] 200 mg IM Q14D 1 Days #1 each Discharge Medication List Haloperidol Decanoate [Haldol D] 200 mg IM Q14D 1 Days #1 each 07/10/23 [Rx] Follow up Appointment(s)/Referral(s): None,Stated [Primary Care Provider] - 1-2 days Activity/Diet/Wound Care/Special Instructions: Avoid the use of street drugs and alcohol. Take all medications as prescribed. When you are in need of refills on your medications, please contact your medical provider and/or outpatient psychiatrist/provider to have this done. Please go to your scheduled outpatient appointment for aftercare treatment. If symptoms return or become worse, call the crisis line at and/or go to the nearest emergency room for evaluation. National Suicide Hotline 153.
== END 2023-10-20 12:28 | disposition home or self-care (01) | DRG 817 ==
LOC: EC 18:53 → 3MHU 10-16 14:31
PROVIDERS: ADMIT Psychiatry & Neurology Psychiatry; ATTEND Psychiatry & Neurology Psychiatry
DX: T40.412A Poisoning by fentanyl or fentanyl analogs, intentional self-harm, initial encounter (principal); E03.9 Hypothyroidism, unspecified; F41.9 Anxiety disorder, unspecified; F15.20 Other stimulant dependence, uncomplicated; F13.10 Sedative, hypnotic or anxiolytic abuse, uncomplicated; F12.10 Cannabis abuse, uncomplicated; F17.200 Nicotine dependence, unspecified, uncomplicated; G47.00 Insomnia, unspecified; R45.850 Homicidal ideations; T51.0X2A Toxic effect of ethanol, intentional self-harm, initial encounter; F25.1 Schizoaffective disorder, depressive type; I10 Essential (primary) hypertension; F43.21 Adjustment disorder with depressed mood; Z76.5 Malingerer [conscious simulation]; Z56.0 Unemployment, unspecified; Z59.02 Unsheltered homelessness; Z79.899 Other long term (current) drug therapy; Z82.49 Family history of ischemic heart disease and other diseases of the circulatory system
CPT/HCPCS: 80053; 80061; 80306; 82075; 82248; 83036; 84443; 85025; 87635; 99285

== ENCOUNTER 2023-10-20 19:43 | Emergency (ER) | payer OTHER ==
[2023-10-20 20:17] VITALS: RESP 18
--- NOTE | 2023-10-20 20:22 | ED ---
Overdose HPI - General Chief Complaint: Overdose Stated Complaint: Overdose Time Seen by Provider: 10/20/23 20:20 Source: EMS, RN notes reviewed, old records reviewed Mode of arrival: EMS Limitations: altered mental status - History of Present Illness Initial Comments: This is a 37-year-old male took recreational attempts recreational overdose. Patient states he believes he may have done some meth with fentanyl. Patient was given Narcan prior to arrival is currently awake and alert patient does not feel well feels like his heart is racing he feels very anxious MD Complaint: intentional overdose -: minutes(s) How Overdose Was Discovered: called family/friend, called 911 Context: Intentional Overdose: drug/ETOH problems Associated Symptoms: depression Treatments Prior to Arrival: none - Related Data Previous Rx's Medication Instructions Recorded Haloperidol Decanoate [Haldol D] 200 mg IM Q14D 1 Days #1 each 10/20/23 Mirtazapine [Remeron] 15 mg PO HS 14 Days #14 tab 10/20/23 Nicotine 14Mg/24Hr Patch [Habitrol] 1 patch TRANSDERM DAILY 14 Days 10/20/23 #14 patch Venlafaxine HCl ER [Effexor XR] 75 mg PO DAILY 14 Days #14 cap 10/20/23 amLODIPine [Norvasc] 5 mg PO DAILY 14 Days #14 tab 10/20/23 Allergies Allergy/AdvReac Type Severity Reaction Status Date / Time No Known Allergies Allergy Verified 10/20/23 20:00 Review of Systems ROS Statement: Those systems with pertinent positive or pertinent negative responses have been documented in the HPI. ROS Other: All systems not noted in ROS Statement are negative. Past Medical History Past Medical History: GERD/Reflux, Hypertension, Liver Disease, Skin Disorder Additional Past Medical History / Comment(s): Hepatitis C, Pancreatitis, DDD, back pain, bilateral carpel tunnel syndrome. In the past has reported that he has heart disease that was found when he had kidney problems but he denies having a stress test or cardiac catheterization. History of Any Multi-Drug Resistant Organisms: None Reported MDRO Source:: unknown Past Surgical History: No Surgical Hx Reported, Unable to Obtain Additional Past Surgical History / Comment(s): Pt states he has had numerous "cysts" removed from where he injected IV drugs. Past Anesthesia/Blood Transfusion Reactions: No Reported Reaction, Unable to Obtain Additional Past Anesthesia/Blood Transfusion Reaction / Comment(s): In the past pt reported that he has never had surgery Past Psychological History: Anxiety, Bipolar, Depression, Schizophrenia Smoking Status: Current every day smoker Past Alcohol Use History: Abuse Past Drug Use History: Marijuana, Methamphetamine, Opiates - Past Family History Mother Family Medical History: Unable to Obtain, Rheumatoid Arthritis (RA) Additional Family Medical History / Comment(s): Mother is . Father Family Medical History: Coronary Artery Disease (CAD) General Exam Limitations: altered mental status General appearance: alert, in no apparent distress, appears intoxicated, anxious Head exam: Present: atraumatic, normocephalic, normal inspection Eye exam: Present: normal appearance, PERRL, EOMI. Absent: scleral icterus, conjunctival injection, periorbital swelling ENT exam: Present: normal exam, mucous membranes moist Neck exam: Present: normal inspection. Absent: tenderness, meningismus, lymphadenopathy Respiratory exam: Present: normal lung sounds bilaterally. Absent: respiratory distress, wheezes, rales, rhonchi, stridor Cardiovascular Exam: Present: regular rate, normal rhythm, normal heart sounds. Absent: systolic murmur, diastolic murmur, rubs, gallop, clicks GI/Abdominal exam: Present: soft, normal bowel sounds. Absent: distended, tenderness, guarding, rebound, rigid Extremities exam: Present: normal inspection, full ROM, normal capillary refill. Absent: tenderness, pedal edema, joint swelling, calf tenderness Back exam: Present: normal inspection Neurological exam: Present: alert, oriented X3, CN II-XII intact Psychiatric exam: Present: normal affect, normal mood Skin exam: Present: warm, dry, intact, normal color. Absent: rash Course Vital Signs 10/20/23 10/20/23 10/20/23 19:55 21:33 23:00 Temperature 98.9 F Pulse Rate 94 98 101 H Respiratory 18 18 18 Rate Blood Pressure 113/73 113/73 109/63 O2 Sat by Pulse 93 L 95 95 Oximetry 10/21/23 00:01 Temperature 98.3 F Pulse Rate 105 H Respiratory 18 Rate Blood Pressure 122/65 O2 Sat by Pulse 93 L Oximetry - Reevaluation(s) Reevaluation #1: 10/20/23 20:48 Medical record is reviewed Reevaluation #2: 10/20/23 20:48 Patient symptoms are improving Reevaluation #3: 10/20/23 20:48 Patient informed of results and questions answered Reevaluation #4: 10/20/23 20:48 Was pt. sent in by a medical professional or institution ([facility], [employer], urgent care, hospital, or shelter...) When possible be specific @ -no Did you speak to anyone other than the patient for history (EMS, parent, family, police, friend...)? What history was obtained from this source @ -no Did you review nursing and triage notes (agree or disagree)? Why? @ -agree Are old charts reviewed (outside hosp., previous admission, EMS record, old EKG, old radiological studies, urgent care reports/EKG's, shelter records)? Report findings @ -yes Differential Diagnosis (chest pain, altered mental status, abdominal pain women, abdominal pain men, vaginal bleeding, weakness, fever, dyspnea, syncope, headache, dizziness, GI bleed, back pain, seizure, CVA, palpatations, mental health, musculoskeletal)? @ -prior EKG interpreted by me (3pts min.). @ -yes X-rays interpreted by me (1pt min.). @ -no CT interpreted by me (1pt min.). @ -no U/S interpreted by me (1pt. min.). @ -no What testing was considered but not performed or refused? (CT, X-rays, U/S, labs)? Why? @ -none What meds were considered but not given or refused? Why? @ -none Did you discuss the management of the patient with other professionals (professionals i.e. [facility], [employer], lab, RT, psych nurse, social worker school, air bag builder, teacher, service officer, lead case manager)? Give summary @ -no Was smoking cessation discussed for >3mins.? @ -no Was critical care preformed (if so, how long)? @ -no Were there social determinants of health that impacted care today? How? (Homelessness, low income, unemployed, alcoholism, drug addiction, transport ation, low edu. Level, literacy, decrease access to med. care, care home, rehab)? @ -none Was there de-escalation of care discussed even if they declined (Discuss DNR or withdrawal of care, Hospice)? DNR status @ -no What co-morbidities impacted this encounter? (DM, HTN, Smoking, COPD, CAD, Cancer, CVA, ARF, Chemo, Hep., AIDS, mental health diagnosis, sleep apnea, morbid obesity)? @ -none Was patient admitted / discharged? Hospital course, mention meds given and route, prescriptions, significant lab abnormalities, going to OR and other pertinent info. @ - 38 male to the emergency department overdose on likely final. for likely overdose admits to fentanyl and methamphetamines use prior to arrival. Patient will signs are improving here in the ER and can be discharged home Undiagnosed new problem with uncertain prognosis? @ -no Drug Therapy requiring intensive monitoring for toxicity (Heparin, Nitro, Insulin, Cardizem)? @ -no Were any procedures done? @ -no Diagnosis/symptom? @ -Drug overdose, polysubstance abuse Acute, or Chronic, or Acute on Chronic? @ -Acute Uncomplicated (without systemic symptoms) or Complicated (systemic symptoms)? @ -Complicated Side effects of treatment? @ -no Exacerbation, Progression, or Severe Exacerbation? @ -exacerbation Poses a threat to life or bodily function? How? (Chest pain, [place], [place], pneumonia, PE, COPD, DKA, ARF, appy, cholecystitis, CVA, Diverticulitis, Homicidal, Suicidal, threat to staff... and all critical care pts) @ -yes with significant overdose Reevaluation #5: 10/20/23 20:48 Patient's medical history is reviewed with 2 recent admissions for similar events. Both medical admission and psychiatric admission, due to this fact patient will be discharged from the emergency room in today with normal and stable vital signs Medical Decision Making - Medical Decision Making 38 male to the emergency department overdose on likely final. for likely overdose admits to fentanyl and methamphetamines use prior to arrival. Patient will signs are improving here in the ER and can be discharged home - EKG Data -: EKG Interpreted by Me (EKG is 72 WA 160 QRS 90 QTC 371) Disposition Clinical Impression: Poisoning by opiates and related narcotics, other Disposition: HOME SELF-CARE Condition: Fair Instructions (If sedation given, give patient instructions): Adult Overdose (ED) Is patient prescribed a controlled substance at d/c from ED?: No Referrals: None,Stated [Primary Care Provider] - 1-2 days Time of Disposition: 20:20
[2023-10-20] MEDS ORDERED: SODIUM CHLORIDE 0.9% 1,000 ML IV STA (20:43)
[2023-10-20] MEDS ORDERED: ONDANSETRON 4 MG/2 ML VIAL IVP PRN (20:43)
[2023-10-20] MEDS ORDERED: NALOXONE 0.4 MG/ML 1 ML VIAL IV PRN (20:43)
[2023-10-21 00:13] VITALS: BP 122/65; PULSE 105; TEMP 98.3
[2023-10-21] MEDS ORDERED: PANTOPRAZOLE 40 MG/10 ML VIAL IV SCH (09:00)
== END 2023-10-21 00:13 | disposition home or self-care (01) ==
LOC: EC 19:43
DX: T40.601A Poisoning by unspecified narcotics, accidental (unintentional), initial encounter (principal); I10 Essential (primary) hypertension; F17.200 Nicotine dependence, unspecified, uncomplicated; F12.90 Cannabis use, unspecified, uncomplicated; F15.90 Other stimulant use, unspecified, uncomplicated; F10.10 Alcohol abuse, uncomplicated; Z86.59 Personal history of other mental and behavioral disorders; Z79.891 Long term (current) use of opiate analgesic
CPT/HCPCS: 96360; 96361; 99284

== ENCOUNTER 2023-12-08 13:31 | Inpatient (IN) | payer OTHER ==
[2023-12-08] MEDS ORDERED: SODIUM CHLORIDE 0.9% 1,000 ML IV STA (15:09)
--- NOTE | 2023-12-08 15:13 | ED ---
Recheck HPI - General Chief Complaint: Recheck/Abnormal Lab/Rx Stated Complaint: infection Time Seen by Provider: 12/08/23 14:48 Source: patient, RN notes reviewed, old records reviewed Mode of arrival: ambulatory Limitations: no limitations - History of Present Illness Initial Comments: This is a 38-year-old male to the ER today. Patient is well-known to our emergency department is presented today for what he states is infection in his blood. Patient just signed out AGAINST MEDICAL ADVICE from [facility] and states that he was told he has infection in his blood was called from home today. Complaint: abnormal lab (Allegedly patient does have blood infection) -: unknown Returns Today for: Called Because of Abnormal Lab/Test Symptoms Since Prior Visit: no new symptoms Context: called for abnormal lab result, called for positive culture result Associated Symptoms: none Treatments Prior to Arrival: Given Antibiotics on - Related Data Previous Rx's Medication Instructions Recorded Haloperidol Decanoate [Haldol D] 200 mg IM Q14D 1 Days #1 each 10/20/23 QUEtiapine [SEROquel] 25 mg PO BID 30 Days #60 tab 12/11/23 Thiamine [Vitamin B-1] 100 mg PO DAILY 30 Days #30 tab 12/11/23 buPROPion XL [Wellbutrin XL] 150 mg PO DAILY 30 Days #30 tab 12/11/23 busPIRone HCl [Buspar] 7.5 mg PO BID 30 Days #60 tab 12/11/23 Allergies Allergy/AdvReac Type Severity Reaction Status Date / Time No Known Allergies Allergy Verified 12/08/23 17:41 Review of Systems ROS Statement: Those systems with pertinent positive or pertinent negative responses have been documented in the HPI. ROS Other: All systems not noted in ROS Statement are negative. Past Medical History Past Medical History: GERD/Reflux, Hypertension, Liver Disease, Skin Disorder Additional Past Medical History / Comment(s): Hepatitis C, Pancreatitis, DDD, back pain, bilateral carpel tunnel syndrome. In the past has reported that he has heart disease that was found when he had kidney problems but he denies having a stress test or cardiac catheterization. History of Any Multi-Drug Resistant Organisms: None Reported MDRO Source:: unknown Past Surgical History: No Surgical Hx Reported, Unable to Obtain Additional Past Surgical History / Comment(s): Pt states he has had numerous "c ysts" removed from where he injected IV drugs. Past Anesthesia/Blood Transfusion Reactions: No Reported Reaction, Unable to Obtain Additional Past Anesthesia/Blood Transfusion Reaction / Comment(s): In the past pt reported that he has never had surgery Past Psychological History: Anxiety, Bipolar, Depression, Schizophrenia Smoking Status: Current every day smoker Past Alcohol Use History: Abuse Past Drug Use History: Marijuana, Methamphetamine, Opiates - Past Family History Mother Family Medical History: Unable to Obtain, Rheumatoid Arthritis (RA) Additional Family Medical History / Comment(s): Mother is . Father Family Medical History: Coronary Artery Disease (CAD) General Exam Limitations: no limitations, altered mental status General appearance: alert, in no apparent distress Head exam: Present: atraumatic, normocephalic, normal inspection Eye exam: Present: normal appearance, PERRL, EOMI. Absent: scleral icterus, conjunctival injection, periorbital swelling ENT exam: Present: normal exam, mucous membranes moist Neck exam: Present: normal inspection. Absent: tenderness, meningismus, lymphadenopathy Respiratory exam: Present: normal lung sounds bilaterally. Absent: respiratory distress, wheezes, rales, rhonchi, stridor Cardiovascular Exam: Present: regular rate, normal rhythm, normal heart sounds. Absent: systolic murmur, diastolic murmur, rubs, gallop, clicks GI/Abdominal exam: Present: soft, normal bowel sounds. Absent: distended, tenderness, guarding, rebound, rigid Extremities exam: Present: normal inspection, full ROM, normal capillary refill. Absent: tenderness, pedal edema, joint swelling, calf tenderness Back exam: Present: normal inspection Neurological exam: Present: alert, oriented X3, CN II-XII intact Psychiatric exam: Present: normal affect, normal mood Skin exam: Present: warm, dry, intact, normal color. Absent: rash Course Vital Signs 12/08/23 12/08/23 12/08/23 13:48 15:59 20:45 Temperature 97.9 F 97.8 F Pulse Rate 81 81 Pulse Rate [ 85 Pulse Oximetery ] Respiratory 20 14 21 Rate Blood Pressure 121/66 126/75 Blood Pressure 131/80 [Supine] O2 Sat by Pulse 98 97 97 Oximetry - Reevaluation(s) Reevaluation #1: 12/08/23 16:02 Medical records reviewed Reevaluation #2: 12/08/23 16:02 Patient symptoms are unchanged Reevaluation #3: 12/08/23 16:02 Patient informed results and questions answered Reevaluation #4: 12/08/23 16:02 Was pt. sent in by a medical professional or institution ([facility], [employer], urgent care, hospital, or custodial...) When possible be specific @ -no Did you speak to anyone other than the patient for history (EMS, parent, family, police, friend...)? What history was obtained from this source @ -no Did you review nursing and triage notes (agree or disagree)? Why? @ -agree Are old charts reviewed (outside hosp., previous admission, EMS record, old EKG, old radiological studies, urgent care reports/EKG's, custodial records)? Report findings @ -yes Differential Diagnosis (chest pain, altered mental status, abdominal pain women, abdominal pain men, vaginal bleeding, weakness, fever, dyspnea, syncope, headache, dizziness, GI bleed, back pain, seizure, CVA, palpatations, mental health, musculoskeletal)? @ -prior EKG interpreted by me (3pts min.). @ -no X-rays interpreted by me (1pt min.). @ -no CT interpreted by me (1pt min.). @ -no U/S interpreted by me (1pt. min.). @ -no What testing was considered but not performed or refused? (CT, X-rays, U/S, labs)? Why? @ -none What meds were considered but not given or refused? Why? @ -none Did you discuss the management of the patient with other professionals (professionals i.e. [facility], [employer], lab, RT, psych nurse, drug abuse social worker, deck cadet, teacher, juvenile detention officer, medical case manager)? Give summary @ -no Was smoking cessation discussed for >3mins.? @ -no Was critical care preformed (if so, how long)? @ -no Were there social determinants of health that impacted care today? How? (Homelessness, low income, unemployed, alcoholism, drug addiction, transportation, low edu. Level, literacy, decrease access to med. care, residential, rehab)? @ -none Was there de-escalation of care discussed even if they declined (Discuss DNR or withdrawal of care, Hospice)? DNR status @ -no What co-morbidities impacted this encounter? (DM, HTN, Smoking, COPD, CAD, Cancer, CVA, ARF, Chemo, Hep., AIDS, mental health diagnosis, sleep apnea, morbid obesity)? @ -none Was patient admitted / discharged? Hospital course, mention meds given and route, prescriptions, significant lab abnormalities, going to OR and other pertinent info. @ - 38 male to the emergency department for evaluation of alleged bacteria. Patient states he left the hospital AMA yesterday was called and told that he had infection in his blood. Patient presents emergency department with those as his complaints, patient records requested from [facility] and patient will be admitted for antibiotics and blood cultures Admitted Undiagnosed new problem with uncertain prognosis? @ -no Drug Therapy requiring intensive monitoring for toxicity (Heparin, Nitro, Insulin, Cardizem)? @ -no Were any procedures done? @ -no Diagnosis/symptom? @ -Bacteremia Acute, or Chronic, or Acute on Chronic? @ -Acute Uncomplicated (without systemic symptoms) or Complicated (systemic symptoms)? @ -Complicated Side effects of treatment? @ -no Exacerbation, Progression, or Severe Exacerbation? @ -exacerbation Poses a threat to life or bodily function? How? (Chest pain, USA, PA, pneumonia, PE, COPD, DKA, ARF, appy, cholecystitis, CVA, Diverticulitis, Homicidal, Suicidal, threat to staff... and all critical care pts) @ -yes with significant bacterial infection - Consultations Consultation #1: Spoke with Dr. Morgan who agrees to admit this patient Medical Decision Making - Medical Decision Making 38 male to the emergency department for evaluation of alleged bacteria. Patient states he left the hospital AMA yesterday was called and told that he had infe ction in his blood. Patient presents emergency department with those as his complaints, patient records requested from [facility] and patient will be admitted for antibiotics and blood cultures - Lab Data Result diagrams: 12/10/23 05:26 12/11/23 06:08 Lab Results 12/08/23 12/08/23 Range/Units 15:58 15:58 Sodium 145 (137-145) mmol/L Potassium 3.9 (3.5-5.1) mmol/L Chloride 113 H (98-107) mmol/L Carbon Dioxide 24 (22-30) mmol/L Anion Gap 8 mmol/L BUN 8 L (9-20) mg/dL Creatinine 0.59 L (0.66-1.25) mg/dL Est GFR (CKD-EPI)AfAm >90 (>60 ml/min/1.73 sqM) Est GFR (CKD-EPI)NonAf >90 (>60 ml/min/1.73 sqM) Glucose 118 H (74-99) mg/dL Calcium 9.4 (8.4-10.2) mg/dL Phosphorus 3.6 (2.5-4.5) mg/dL Magnesium 2.2 (1.6-2.3) mg/dL Total Bilirubin 0.5 (0.2-1.3) mg/dL AST 35 (17-59) U/L ALT 15 (4-49) U/L Alkaline Phosphatase 40 (38-126) U/L NT-Pro-B Natriuret Pep 79 pg/mL Total Protein 7.3 (6.3-8.2) g/dL Albumin 4.0 (3.5-5.0) g/dL Lipase 35 (23-300) U/L TSH 0.324 L (0.465-4.680) mIU/L Urine Color Colorless Urine Appearance Clear (Clear) Urine pH 6.0 (5.0-8.0) Ur Specific [place] 1.011 (1.001-1.035) Urine Protein Negative (Negative) Urine Glucose (UA) Negative (Negative) Urine Ketones Negative (Negative) Urine Blood Negative (Negative) Urine Nitrite Negative (Negative) Urine Bilirubin Negative (Negative) Urine Urobilinogen <2.0 (<2.0) mg/dL Ur Leukocyte Esterase Negative (Negative) Salicylates <1.0 mg/dL Urine Opiates Screen Not Detected (NotDetected) Ur Oxycodone Screen Not Detected (NotDetected) Urine Methadone Screen Not Detected (NotDetected) Acetaminophen <10.0 ug/mL Ur Barbiturates Screen Not Detected (NotDetected) U Tricyclic Antidepress Not Detected (NotDetected) Ur Phencyclidine Scrn Not Detected (NotDetected) Ur Amphetamines Screen Not Detected (NotDetected) U Methamphetamines Scrn Not Detected (NotDetected) U Benzodiazepines Scrn Detected H (NotDetected) Urine Cocaine Screen Not Detected (NotDetected) U Marijuana (THC) Screen Detected H (NotDetected) Serum Alcohol <10 mg/dL Disposition Clinical Impression: Polysubstance abuse, Acute psychosis, Noncompliance with treatment, Bacteremia Narrative: Question Bacteremia Disposition: ADMITTED IP TO THIS HOSP Condition: Undetermined Is patient prescribed a controlled substance at d/c from ED?: No Time of Disposition: 16:00
[2023-12-08] MEDS ORDERED: LORazepam 2 MG/ML INJ IV PRN (16:00)
[2023-12-08] MEDS ORDERED: NALOXONE 0.4 MG/ML 1 ML VIAL IV PRN (16:00)
[2023-12-08] MEDS ORDERED: ONDANSETRON 4 MG/2 ML VIAL IVP PRN (16:00)
[2023-12-08] MEDS ORDERED: AMPICILLIN-SULBACTAM 3 GM in SODIUM CHLORIDE 0.9% 100 ML IVPB STA (16:04)
[2023-12-08] MEDS ORDERED: VANCOMYCIN IV PER PHARMACY 1 EACH MISC MISCELLANE PRN (16:26)
[2023-12-08 16:38] LABS: ALT 15 U/L (4-49); AST 35 U/L (17-59); Acetaminophen <10.0 ug/mL; African American GFR (CKD) >90 (>60 ml/min/1.73 sqM); Alcohol <10 mg/dL; Alkaline Phosphatase 40 U/L (38-126); Anion Gap 8 mmol/L; Blood Urea Nitrogen 8 mg/dL (9-20); Calcium 9.4 mg/dL (8.4-10.2); Carbon Dioxide 24 mmol/L (22-30); Chloride 113 mmol/L (98-107); Glucose 118 mg/dL (74-99); Lipase 35 U/L (23-300); Magnesium 2.2 mg/dL (1.6-2.3); Non-African American GFR(CKD) >90 (>60 ml/min/1.73 sqM); Phosphorus 3.6 mg/dL (2.5-4.5); Salicylate <1.0 mg/dL; Sodium 145 mmol/L (137-145); Total Bilirubin 0.5 mg/dL (0.2-1.3); Total Protein 7.3 g/dL (6.3-8.2)
[2023-12-08 16:44] LABS: Potassium 3.9 mmol/L (3.5-5.1)
[2023-12-08 16:46] LABS: NT-Pro-B-Type Natriuretic Pept 79 pg/mL
[2023-12-08] MEDS ORDERED: VANCOMYCIN 1,500 MG in SODIUM CHLORIDE 0.9% 500 ML 500 ML IVPB ONE (17:00)
[2023-12-08 17:03] LABS: Appearance,Urine Clear (Clear); Bilirubin,Urine Negative (Negative); Blood,Urine Negative (Negative); Color,Urine Colorless; Glucose,Urine (UA) Negative (Negative); Ketones,Urine Negative (Negative); Leukocyte Esterase,Urine Negative (Negative); Nitrite,Urine Negative (Negative); Protein,Urine Negative (Negative); Specific Gravity,Urine 1.011 (1.001-1.035); Urobilinogen,Urine <2.0 mg/dL (<2.0)
[2023-12-08 17:17] LABS: Amphetamine Screen,Urine Not Detected (NotDetected); Barbiturate Screen,Urine Not Detected (NotDetected); Benzodiazepines Screen,Urine Detected (NotDetected); Cocaine Screen,Urine Not Detected (NotDetected); Methadone Screen, Urine Not Detected (NotDetected); Opiate Screen,Urine Not Detected (NotDetected); Oxycodone Screen, Urine Not Detected (NotDetected); Phencyclidine Screen,Urine Not Detected (NotDetected); Tricyclic Antidepressant,Urine Not Detected (NotDetected); Urn Cannabinoid Scrn Detected (NotDetected)
[2023-12-08 18:24] LABS: Basophils # (A) 0.1 k/uL (0-0.2); Basophils % (A) 1 %; Eosinophils # (A) 0.2 k/uL (0-0.7); Eosinophils % (A) 2 %; HCT 32.8 % (39.0-53.0); Lymphocytes # (A) 2.2 k/uL (1.0-4.8); Lymphocytes % (A) 30 %; MCH 28.5 pg (25.0-35.0); MCHC 33.9 g/dL (31.0-37.0); MCV 84.2 fL (80.0-100.0); Mean Platelet Volume 9.3; Monocytes # (A) 0.4 k/uL (0-1.0); Monocytes % (A) 6 %; Neutrophils # (A) 4.2 k/uL (1.3-7.7); Neutrophils % (A) 58 %; Platelet Count 259 k/uL (150-450); RDW 15.4 % (11.5-15.5); WBC 7.2 k/uL (3.8-10.6)
[2023-12-08 18:35] LABS: HGB 11.1 gm/dL (13.0-17.5)
[2023-12-08] MEDS ORDERED: HALOPERIDOL LACTATE 5 MG/ML 1 ML VIAL IM STA (19:56)
[2023-12-08] MEDS: NICOTINE 21MG/24HR PATCH TRANSDERM SCH (21:00)
[2023-12-08] MEDS: LORazepam 2 MG/ML INJ IV PRN (23:07)
[2023-12-09] MEDS: LORazepam 2 MG/ML INJ IV PRN ×4 (01:09→10:32)
[2023-12-09] MEDS: SODIUM CHLORIDE 0.9% 1,000 ML IV SCH ×3 (01:28→20:06)
[2023-12-09] MEDS: AMPICILLIN-SULBACTAM 3 GM in SODIUM CHLORIDE 0.9% 100 ML IVPB SCH ×3 (03:54→17:23)
[2023-12-09] MEDS: VANCOMYCIN 1,500 MG in SODIUM CHLORIDE 0.9% 500 ML 500 ML IVPB SCH ×3 (05:06→21:06)
[2023-12-09] MEDS: MULTIVITAMINS, THERA 1 EACH TAB PO SCH ×2 (09:06→09:07)
[2023-12-09] MEDS: THIAMINE 100 MG TAB PO SCH (09:06)
[2023-12-09] MEDS: FOLIC ACID 1 MG TAB PO SCH ×2 (09:06→09:07)
[2023-12-09] MEDS: NICOTINE 21MG/24HR PATCH TRANSDERM SCH (10:14)
[2023-12-09] MEDS ORDERED: diazePAM 5 MG TAB PO SCH (11:45)
[2023-12-09] MEDS ORDERED: PARoxetine 20 MG TAB PO SCH (12:30)
[2023-12-09 12:39] LABS: ALT 7 U/L (10-49); AST 16 U/L (14-35); Albumin 3.1 g/dL (3.8-4.9); Albumin/Globulin Ratio 1.41 Ratio (1.60-3.17); Alkaline Phosphatase 41 U/L (41-126); BUN/Creat Ratio 10.29 Ratio (12.00-20.00); Blood Urea Nitrogen 7.2 mg/dL (9.0-27.0); Calcium 8.6 mg/dL (8.7-10.3); Chloride 112 mmol/L (96-109); Globulin 2.2 g/dL (1.6-3.3); Glucose 110 mg/dL (70-110); Magnesium 1.9 mg/dL (1.5-2.4); Potassium 3.4 mmol/L (3.5-5.5); Sodium 144 mmol/L (135-145); Total Bilirubin <0.2 mg/dL (0.3-1.2); Total Protein 5.3 g/dL (6.2-8.2)
[2023-12-09 12:52] LABS: Basophils # (A) 0.05 X 10*3/uL (0.00-0.10); Basophils % (A) 0.7 %; Eosinophils # (A) 0.39 X 10*3/uL (0.04-0.35); Eosinophils % (A) 5.6 %; HCT 32.3 % (39.6-50.0); HGB 10.3 g/dL (13.0-17.0); Lymphocytes # (A) 2.15 X 10*3/uL (0.90-5.00); Lymphocytes % (A) 30.8 %; MCH 27.2 pg (27.0-32.0); MCHC 31.9 g/dL (32.0-37.0); MCV 85.2 FL (80.0-97.0); Mean Platelet Volume 11.3 FL (9.5-12.2); Monocytes # (A) 0.63 X 10*3/uL (0.20-1.00); NRBC Per 100 WBC 0 X 10*3/uL (0.00-0.01); Neutrophils # (A) 3.75 X 10*3/uL (1.80-7.70); Neutrophils % (A) 53.6 %; Platelet Count 264 X 10*3/uL (140-440); RBC 3.79 X 10*6/uL (4.40-5.60); RDW 15.1 % (11.5-14.5); WBC 6.99 X 10*3/uL (4.50-10.00)
[2023-12-09] MEDS: ENOXAPARIN 40 MG/0.4 ML SYRINGE SQ SCH (13:01)
[2023-12-09] MEDS: LORazepam 1 MG TAB PO PRN (14:39)
[2023-12-09] MEDS: diazePAM 5 MG TAB PO SCH (18:42)
[2023-12-09] MEDS: busPIRone HCl 5 MG TAB PO SCH (18:42)
[2023-12-09] MEDS: MIRTAZAPINE 15 MG TAB PO SCH (20:04)
[2023-12-09] MEDS: QUEtiapine 25 MG TAB PO SCH (20:04)
[2023-12-09] MEDS ORDERED: IPRATROPIUM-ALBUTEROL 3 ML NEB INHALATION PRN (23:19)
--- NOTE | 2023-12-09 23:22 | P.HPIM ---
History of Present Illness H&P Date: 12/09/23 Chief Complaint: Blood infection I'm rounding for Dr. Jose Rafael Kimball. This is a 38-year-old patient who has a legal guardian. Lives at [facility]. Smokes pack and a half a day for last 27 years. This seemed to the binge drink. Does marijuana. Patient was discharged from [facility] about 2 days ago. He is asked to come in as his short infection. He was there for 4 days. Patient had left AMA. During my interview patient was to leave the hospital and go for a cigarette. He wants IV Ativan. Patient does follow [email or web address] with Dr. Celestin from psychiatry.. Patient had a sitter. Patient keeps insisting on leaving the hospital. I do try to convince him several times. Also spoke to patient's legal guardian. She said she would prefer the patient is stable at minus see what we can do. Patient denies any fever and chills. Appetite is fair. Review of systems: GEN.: Tired EYES: None HEENT: None NECK: None RESPIRATORY: None CARDIOVASCULAR: None GASTROINTESTINAL: None GENITOURINARY: None MUSCULOSKELETAL: None LYMPHATICS: None HEMATOLOGICAL: None PSYCHIATRY: Anxious NEUROLOGICAL: None Social history: Smokes a pack and a half a day last 27 years. Does binge drinking. Does smoke marijuana. Lives at [facility]. Has a legal guardian. Physical examination: VITAL SIGNS: 97.7, 77, 20, 146/96, 96% room air GENERAL: BMI 28.9, sitting at the edge of bed, disheveled. Irritated. EYES: Pupils equal. Conjunctiva normal. HEENT: External appearance of nose and ears normal, oral cavity grossly normal. NECK: JVD not raised; masses not palpable. HEART: First and second heart sounds are normal; no edema. LUNGS: Respiratory rate normal; decreased breath sounds. ABDOMEN: Soft, nontender, liver spleen not palpable, no masses palpable. PSYCH: Alert and oriented x3; mood and affect agitated. Sometimes shouting.l. MUSCULOSKELETAL:No Clubbing/cyanosis;muscles-grossly intact NEUROLOGICAL: Cranial nerves grossly intact; no facial asymmetry, power and sensation grossly intact. Did walk around the room. LYMPHATICS: No lymph nodes palpable in the axilla and neck INVESTIGATIONS, reviewed in the clinical context: 12/17/2023: White count 6.19 globin 10.3 potassium 3.4 creatinine 0.7 UA: Negative Urine drug screen positive for benzodiazepine, marijuana Assessment and plan: -Positive blood cultures reported from [facility]. We'll follow up with the same. ID consulted. On IV vancomycin and IV Unasyn. -Schizophrenia. Somewhat uncontrolled behavior. Agitated. Shouting at times. Mostly the hospital.: Patient behavior is uncontrolled. Psychiatry consulted. Ativan when necessary. Sitter. -COPD in a current smoker DuoNeb when necessary. -Chronic nicotine dependence, cigarette smoker Nicotine patch -Alcohol use disorder. Thiamine. Multivitamin. -Public guardian. [facility] Past Medical History Past Medical History: GERD/Reflux, Hypertension, Liver Disease, Skin Disorder Additional Past Medical History / Comment(s): Hepatitis C, Pancreatitis, DDD, back pain, bilateral carpel tunnel syndrome. In the past has reported that he has heart disease that was found when he had kidney problems but he denies having a stress test or cardiac catheterization. History of Any Multi-Drug Resistant Organisms: None Reported MDRO Source:: unknown Past Surgical History: No Surgical Hx Reported, Unable to Obtain Additional Past Surgical History / Comment(s): Pt states he has had numerous "cysts" removed from where he injected IV drugs. Past Anesthesia/Blood Transfusion Reactions: No Reported Reaction, Unable to Obtain Additional Past Anesthesia/Blood Transfusion Reaction / Comment(s): In the past pt reported that he has never had surgery Past Psychological History: Anxiety, Bipolar, Depression, Schizophrenia Additional Psychological History / Comment(s): He has had multiple [facility] mental health admissions and suicide attempts in the past. Smoking Status: Current every day smoker Past Alcohol Use History: Abuse Additional Past Alcohol Use History / Comment(s): Pt started smoking in 1994 and smokes 1ppd. Unable to obtain alcohol history but chart states pt has history of alcohol abuse. Past Drug Use History: Marijuana, Methamphetamine, Opiates Additional Drug Use History / Comment(s): During this admission patient tested positive for Amphetamines, Methamphetamines, Cocaine, and Marijuana. Patient has past history of herion abuse. - Past Family History Mother Family Medical History: Unable to Obtain, Rheumatoid Arthritis (RA) Additional Family Medical History / Comment(s): Mother is . Father Family Medical History: Coronary Artery Disease (CAD) Medications and Allergies Home Medications Medication Instructions Recorded Confirmed Type Haloperidol Decanoate [Haldol D] 200 mg IM Q14D 1 Days #1 each 10/20/23 12/08/23 Rx Allergies Allergy/AdvReac Type Severity Reaction Status Date / Time No Known Allergies Allergy Verified 12/08/23 17:41 Physical Exam Vitals: Vital Signs Temp Pulse Pulse Resp BP BP Pulse Ox 12/09/23 08:00 97.7 F 77 20 146/96 96 12/09/23 02:16 97.9 F 78 21 154/79 96 12/08/23 20:45 97.8 F 85 21 131/80 97 12/08/23 15:59 81 14 126/75 97 12/08/23 13:48 97.9 F 81 20 121/66 98 Intake and Output 12/08/23 12/09/23 12/09/23 22:59 06:59 14:59 Intake Total 3500 Balance 3500 Intake: Intake, IV Titration 300 Amount Sodium Chloride 0.9% 1, 300 000 ml @ 75 mls/hr IV . [id number] KATARZYNA Rx#:[id number] Oral 3200 Other: # Voids 5 Weight 86.183 kg Results CBC & Chem 7: 12/09/23 05:45 12/09/23 05:45 Labs: Abnormal Lab Results - Last 24 Hours (Table) 12/08/23 12/08/23 12/08/23 Range/Units 15:58 15:58 17:48 RBC 3.90 L (4.30-5.90) m/uL Hgb 11.1 L D (13.0-17.5) gm/dL Hct 32.8 L (39.0-53.0) % Chloride 113 H (98-107) mmol/L BUN 8 L (9-20) mg/dL Creatinine 0.59 L (0.66-1.25) mg/dL Glucose 118 H (74-99) mg/dL TSH 0.324 L (0.465-4.680) mIU/L U Benzodiazepines Scrn Detected H (NotDetected) U Marijuana (THC) Screen Detected H (NotDetected)
[2023-12-10] MEDS: AMPICILLIN-SULBACTAM 3 GM in SODIUM CHLORIDE 0.9% 100 ML IVPB SCH ×4 (00:03→23:41)
--- NOTE | 2023-12-10 03:09 | P.CONS ---
History of Present Illness - Reason for Consult Consult date: 12/09/23 Positive blood culture Requesting physician: Jose Rafael Kimball - Chief Complaint Abnormal labs x 1 day - History of Present Illness This is a telehealth visit Patient is a 38-year-old male with a past medical history significant for hypertension reflux hepatitis C pancreatitis history of drug overuse and alcoholism patient was recently admitted at [facility] for alcohol and drug overuse from March the patient left AGAINST MEDICAL ADVICE apparently the patient did have blood cultures done at that facility which came back positive with gram-positive cocci currently growing Streptococcus auris the patient was advised to come back to the hospital, instead of going to the [facility] the patient presented to [facility] patient was admitted to the hospital blood culture has been repeated he was started on vancomycin infectious disease was consulted for further management. On today's evaluation that is 12/09/2023, patient denies having any fever or any chills, the patient is breathing comfortably on room air the patient denies hui ving any URI symptoms denies having any problem with his teeth and no recent dental workup no chest pain shortness of breath occasional cough some nausea but no vomiting no abdominal pain and no diarrhea patient did have white count of 6.9, creatinine 0.7 electrolytes are normal urine is negative urine testing was positive for benzos and marijuana Review of Systems Positive point and negatives has been mentioned in the HPI, complete review of systems was performed and all other systems are negative Past Medical History Past Medical History: GERD/Reflux, Hypertension, Liver Disease, Skin Disorder Additional Past Medical History / Comment(s): Hepatitis C, Pancreatitis, DDD, back pain, bilateral carpel tunnel syndrome. In the past has reported that he has heart disease that was found when he had kidney problems but he denies having a stress test or cardiac catheterization. History of Any Multi-Drug Resistant Organisms: None Reported MDRO Source:: unknown Past Surgical History: No Surgical Hx Reported, Unable to Obtain Additional Past Surgical History / Comment(s): Pt states he has had numerous "cysts" removed from where he injected IV drugs. Past Anesthesia/Blood Transfusion Reactions: No Reported Reaction, Unable to Obtain Additional Past Anesthesia/Blood Transfusion Reaction / Comm: In the past pt reported that he has never had surgery Past Psychological History: Anxiety, Bipolar, Depression, Schizophrenia Additional Psychological History / Comment(s): He has had multiple [facility] mental health admissions and suicide attempts in the past. Smoking Status: Current every day smoker Past Alcohol Use History: Abuse Additional Past Alcohol Use History / Comment(s): Pt started smoking in 1994 and smokes 1ppd. Unable to obtain alcohol history but chart states pt has history of alcohol abuse. Past Drug Use History: Marijuana, Methamphetamine, Opiates Additional Drug Use History / Comment(s): During this admission patient tested positive for Amphetamines, Methamphetamines, Cocaine, and Marijuana. Patient has past history of herion abuse. - Past Family History Mother Family Medical History: Unable to Obtain, Rheumatoid Arthritis (RA) Additional Family Medical History / Comment(s): Mother is . Father Family Medical History: Coronary Artery Disease (CAD) Medications and Allergies Home Medications Medication Instructions Recorded Confirmed Type Haloperidol Decanoate [Haldol D] 200 mg IM Q14D 1 Days #1 each 10/20/23 12/08/23 Rx QUEtiapine [SEROquel] 25 mg PO BID 30 Days #60 tab 12/11/23 Rx Thiamine [Vitamin B-1] 100 mg PO DAILY 30 Days #30 tab 12/11/23 Rx buPROPion XL [Wellbutrin XL] 150 mg PO DAILY 30 Days #30 tab 12/11/23 Rx busPIRone HCl [Buspar] 7.5 mg PO BID 30 Days #60 tab 12/11/23 Rx Allergies Allergy/AdvReac Type Severity Reaction Status Date / Time No Known Allergies Allergy Verified 12/08/23 17:41 Physical Exam Vitals: Vital Signs Temp Pulse Resp BP BP Pulse Ox 12/09/23 15:22 96 16 169/109 96 12/09/23 14:00 98.1 F 96 19 165/98 100 12/09/23 08:00 97.7 F 77 20 146/96 96 12/09/23 02:16 97.9 F 78 21 154/79 96 12/08/23 20:45 97.8 F 85 21 131/80 97 Intake and Output 12/09/23 12/09/23 12/09/23 06:59 14:59 22:59 Intake Total 3500 Balance 3500 Intake: Intake, IV Titration 300 Amount Sodium Chloride 0.9% 1, 300 000 ml @ 75 mls/hr IV . [id number] KATARZYNA Rx#:[id number] Oral 3200 Other: # Voids 5 Middle-age male lying in bed in no distress Respiratory system unlabored breathing decreased breath sound the base Heart S1-S2 regular Abdominal soft no tenderness Extremities no edema feet Exam completed with the help of [employer] Results CBC & Chem 7: 12/10/23 05:26 12/11/23 06:08 Labs: Abnormal Lab Results - Last 24 Hours (Table) 12/08/23 12/09/23 12/09/23 Range/Units 17:48 05:45 05:45 RBC 3.90 L 3.79 L (4.30-5.90) m/uL Hgb 11.1 L D 10.3 L (13.0-17.5) gm/dL Hct 32.8 L 32.3 L (39.0-53.0) % MCHC 31.9 L (32.0-37.0) g/dL RDW 15.1 H (11.5-14.5) % Eosinophils # 0.39 H (0.04-0.35) X 10*3/uL Potassium 3.4 L (3.5-5.5) mmol/L Chloride 112 H (96-109) mmol/L BUN 7.2 L (9.0-27.0) mg/dL BUN/Creatinine Ratio 10.29 L (12.00-20.00) Ratio Assessment and Plan (1) Positive blood culture Status: Acute Code(s): R78.81 - BACTEREMIA SNOMED Code(s): 871530624 Plan: 1patient with a positive blood culture with Streptococcus only 1 bottle positive at the outside facility in this patient with no fever no elevated white count and no obvious focus for this positive blood culture more likely representing skin contamination 2-blood culture has been repeated results will be followed we will check inflammatory markers 3-if repeat blood culture negative recommend discontinuation of antibiotics We will follow on clinical condition and cultures to further adjust medication if needed Thank you for this consultation we will follow the patient along with you Dictation was produced using [employer] software. please excuse any grammatical, word or spelling errors. Time with Patient: Greater than 30
[2023-12-10] MEDS ORDERED: VANCOMYCIN TROUGH DUE 1 EACH MISC MISCELLANE ONE (05:00)
[2023-12-10] MEDS: LORazepam 1 MG TAB PO PRN ×6 (05:27→23:41)
[2023-12-10] MEDS: NICOTINE 21MG/24HR PATCH TRANSDERM SCH (08:36)
[2023-12-10] MEDS: diazePAM 5 MG TAB PO SCH ×2 (08:36→19:59)
[2023-12-10] MEDS: QUEtiapine 25 MG TAB PO SCH ×2 (08:36→19:59)
[2023-12-10] MEDS: THIAMINE 100 MG TAB PO SCH (08:36)
[2023-12-10] MEDS: MULTIVITAMINS, THERA 1 EACH TAB PO SCH (08:36)
[2023-12-10] MEDS: ENOXAPARIN 40 MG/0.4 ML SYRINGE SQ SCH (08:36)
[2023-12-10] MEDS: FOLIC ACID 1 MG TAB PO SCH (08:36)
[2023-12-10] MEDS: busPIRone HCl 5 MG TAB PO SCH ×2 (08:36→19:59)
[2023-12-10 09:52] LABS: Basophils # (A) 0.06 X 10*3/uL (0.00-0.10); Basophils % (A) 0.7 %; Eosinophils # (A) 0.41 X 10*3/uL (0.04-0.35); Eosinophils % (A) 4.8 %; HCT 35.5 % (39.6-50.0); HGB 11.3 g/dL (13.0-17.0); Lymphocytes % (A) 17.6 %; MCH 27.4 pg (27.0-32.0); MCHC 31.8 g/dL (32.0-37.0); Mean Platelet Volume 12.6 FL (9.5-12.2); Monocytes % (A) 7.1 %; NRBC Per 100 WBC 0 X 10*3/uL (0.00-0.01); Neutrophils % (A) 69.4 %; Platelet Count 254 X 10*3/uL (140-440); RBC 4.13 X 10*6/uL (4.40-5.60); RDW 15.3 % (11.5-14.5)
[2023-12-10] MEDS: buPROPion XL 150 MG TAB.ER.24H PO SCH (11:11)
[2023-12-10] MEDS: VANCOMYCIN 1,500 MG in SODIUM CHLORIDE 0.9% 500 ML 500 ML IVPB SCH ×2 (11:11→20:03)
[2023-12-10] MEDS: MIRTAZAPINE 15 MG TAB PO SCH (19:59)
[2023-12-10] MEDS: SODIUM CHLORIDE 0.9% 1,000 ML IV SCH (20:06)
--- NOTE | 2023-12-10 21:39 | P.PN ---
Progress Note - Text Progress Note Date: 12/10/23 Chief Complaint: Blood infection I'm rounding for Dr. Jose Rafael Kimball. This is a 38-year-old patient who has a legal guardian. [facility]. Smokes pack and a half a day for last 27 years. This seemed to the binge drink. Does marijuana. Patient was discharged from [facility] about 2 days ago. He is asked to come in as his short infection. He was there for 4 days. Patient had left AMA. During my interview patient was to leave the hospital and go for a cigarette. He wants IV Ativan. Patient does follow with[email or web address] with Dr. Celestin from psychiatry.. Patient had a sitter. Patient keeps insisting on leaving the hospital. I do try to convince him several times. Also spoke to patient's legal guardian. She said she would prefer the patient is stable at minus see what we can do. Patient denies any fever and chills. Appetite is fair. 12/10/2023: Patient getting Ativan when necessary. He's drinking a lot of coffee. -medications have been adjusted by psychiatry.. Per ID patient's blood cultures at [facility] was growing Streptococcus aureus. Started IV vancomycin. Patient still somewhat restless walking around the room. The sitter. Active Medications Albuterol/Ipratropium (Ipratropium-Albuterol 3 Ml Neb) 3 ml INHALATION RT-QID PRN PRN Reason: Shortness Of Breath Or Wheezing Bupropion HCl (Bupropion Xl 150 Mg Tab.Er.24h) 150 mg PO DAILY [facility] Last Admin: 12/10/23 11:11 Dose: 150 mg Buspirone HCl (Buspirone Hcl 5 Mg Tab) 7.5 mg PO BID [facility] Last Admin: 12/10/23 19:59 Dose: 7.5 mg Diazepam (Diazepam 5 Mg Tab) 5 mg PO BID [facility] Last Admin: 12/10/23 19:59 Dose: 5 mg Enoxaparin Sodium (Enoxaparin 40 Mg/0.4 Ml Syringe) 40 mg SQ DAILY [facility] Last Admin: 12/10/23 08:36 Dose: 40 mg Folic Acid (Folic Acid 1 Mg Tab) 1 mg PO DAILY [facility] Last Admin: 12/10/23 08:36 Dose: 1 mg Haloperidol Decanoate (Haloperidol Decanoate 100 Mg/Ml 1 Ml Vial) 200 mg IM Q14D [facility] Sodium Chloride (Saline 0.9%) 1,000 mls @ 75 mls/hr IV .[id number] [facility] Last Admin: 12/10/23 20:06 Dose: Not Given Ampicillin Sodium/Sulbactam (Sodium 3 gm/ Sodium Chloride) 100 mls @ 200 mls/hr IVPB Q8HR [facility]; Protocol Last Admin: 12/10/23 17:45 Dose: 200 mls/hr Vancomycin HCl 1,500 mg/ (Sodium Chloride) 500 mls @ 167 mls/hr IVPB Q8H [facility] Last Admin: 12/10/23 20:03 Dose: 167 mls/hr Lorazepam (Lorazepam 1 Mg Tab) 1 mg PO Q6HR PRN PRN Reason: Anxiety Last Admin: 12/10/23 17:45 Dose: 1 mg Mirtazapine (Mirtazapine 15 Mg Tab) 15 mg PO HS [facility] Last Admin: 12/10/23 19:59 Dose: 15 mg Multivitamins (Multivitamins, Thera 1 Each Tab) 1 each PO DAILY [facility] Last Admin: 12/10/23 08:36 Dose: 1 each Naloxone HCl (Naloxone 0.4 Mg/Ml 1 Ml Vial) 0.2 mg IV Q2M PRN PRN Reason: Opioid Reversal Nicotine (Nicotine 21mg/24hr Patch) 1 patch TRANSDERM DAILY [facility] Last Admin: 12/10/23 08:36 Dose: 1 patch Ondansetron HCl (Ondansetron 4 Mg/2 Ml Vial) 4 mg IVP Q8HR PRN PRN Reason: Nausea And Vomiting Quetiapine Fumarate (Quetiapine 25 Mg Tab) 25 mg PO BID [facility] Last Admin: 12/10/23 19:59 Dose: 25 mg Thiamine HCl (Thiamine 100 Mg Tab) 100 mg PO DAILY [facility] Last Admin: 12/10/23 08:36 Dose: 100 mg Social history: Smokes a pack and a half a day last 27 years. Does binge drinking. Does smoke marijuana. Lives at [facility]. Has a legal guardian. Physical examination: VITAL SIGNS: 98, 88, 17, 133 with 78, 96% room air GENERAL: Walking around the room, anxious. EYES: Pupils equal. Conjunctiva normal. HEENT: External appearance of nose and ears normal, oral cavity grossly normal. NECK: JVD not raised; masses not palpable. HEART: First and second heart sounds are normal; no edema. LUNGS: Respiratory rate normal; decreased breath sounds. ABDOMEN: Soft, nontender, liver spleen not palpable, no masses palpable. PSYCH: Does answer questions.; mood and affect anxious INVESTIGATIONS, reviewed in the clinical context: 12/10/2023: White count 8.5-year-old of 11.3 CRP 1.2 12/09/2023: White count 6.19 globin 10.3 potassium 3.4 creatinine 0.7 UA: Negative Urine drug screen positive for benzodiazepine, marijuana Assessment and plan: -Positive blood cultures reported from [facility]. Staphylococcus aureus ID following. On IV vancomycin and IV Unasyn. -Schizophrenia. Somewhat uncontrolled behavior. Wellbutrin XL, BuSpar, Valium, Haldol, Ativan when necessary, Remeron, Seroquel,-per psychiatry Sitter. -COPD in a current smoker DuoNeb when necessary. -Chronic nicotine dependence, cigarette smoker Nicotine patch -Alcohol use disorder. Thiamine. Multivitamin. -Public guardian. [facility] Past Medical History Past Medical History: GERD/Reflux, Hypertension, Liver Disease, Skin Disorder Additional Past Medical History / Comment(s): Hepatitis C, Pancreatitis, DDD, back pain, bilateral carpel tunnel syndrome. In the past has reported that he has heart disease that was found when he had kidney problems but he denies having a stress test or cardiac catheterization. History of Any Multi-Drug Resistant Organisms: None Reported MDRO Source:: unknown Past Surgical History: No Surgical Hx Reported, Unable to Obtain Additional Past Surgical History / Comment(s): Pt states he has had numerous "cysts" removed from where he injected IV drugs. Past Anesthesia/Blood Transfusion Reactions: No Reported Reaction, Unable to Obtain Additional Past Anesthesia/Blood Transfusion Reaction / Comment(s): In the past pt reported that he has never had surgery Past Psychological History: Anxiety, Bipolar, Depression, Schizophrenia Additional Psychological History / Comment(s): He has had multiple [facility] mental health admissions and suicide attempts in the past. Smoking Status: Current every day smoker Past Alcohol Use History: Abuse Additional Past Alcohol Use History / Comment(s): Pt started smoking in 1994 and smokes 1ppd. Unable to obtain alcohol history but chart states pt has history of alcohol abuse. Past Drug Use History: Marijuana, Methamphetamine, Opiates Additional Drug Use History / Comment(s): During this admission patient tested positive for Amphetamines, Methamphetamines, Cocaine, and Marijuana. Patient has past history of herion abuse. - Past Family History Mother Family Medical History: Unable to Obtain, Rheumatoid Arthritis (RA) Additional Family Medical History / Comment(s): Mother is . Father Family Medical History: Coronary Artery Disease (CAD)
--- NOTE | 2023-12-10 22:44 | P.PN ---
Subjective Progress Note Date: 12/10/23 Principal diagnosis: Reason for follow-up is a positive blood culture This is a telehealth visit Patient is a 38-year-old male with a past medical history significant for hypertension reflux hepatitis C pancreatitis history of drug overuse and alcoholism patient was recently admitted at [facility] for alcohol and drug overuse from March the patient left AGAINST MEDICAL ADVICE apparently the patient did have blood cultures done at that facility which came back positive for which the patient was advised to come back to the hospital. On today's evaluation that is 12/10/2023 the patient continues to be afebrile, the patient is breathing comfortably on room air patient denies having any chest pain occasional cough no sputum production, the pt denies nausea vomiting no abdominal pain no diarrhea. Patient did have white count of 8.50 creatinine 0.70 blood culture done so far negative Objective - Vital Signs Vital signs: Vital Signs Temp 97.8 F 12/10/23 08:00 Pulse 65 12/10/23 08:00 Resp 16 12/10/23 08:00 BP 133/78 12/10/23 08:00 Pulse Ox 96 12/10/23 08:00 FiO2 Intake & Output 12/09/23 12/10/23 12/10/23 18:59 06:59 18:59 Intake Total 1500 1000 Balance 1500 1000 Intake: Intake, IV Titration 1500 Amount Ampicillin-Sulbactam 3 gm 100 In Sodium Chloride 0.9% 100 ml @ 200 mls/hr IVPB Q8HR [facility] Rx#:[id number] Sodium Chloride 0.9% 1, 900 000 ml @ 75 mls/hr IV . [id number] [facility] Rx#:[id number] Vancomycin 1,500 mg In 500 Sodium Chloride 0.9% 500 ml 500 ml @ 167 mls/hr IVPB Q8H [facility] Rx#: [id number] Oral 1000 Other: Voiding Method Toilet Toilet # Voids 5 3 2 - Exam Middle-age male lying in bed in no distress Respiratory system unlabored breathing decreased breath sound at the base Heart S1-S2 regular Abdominal soft no tenderness Extremities no edema feet Exam completed with the help of MULTIPLE SPINDLE SCREW MACHINE OPERATOR - Labs CBC & Chem 7: 12/10/23 05:26 12/09/23 05:45 Labs: Abnormal Lab Results - Last 24 Hours (Table) 12/09/23 12/09/2324 Range/Units 05:45 05:45 05:26 RBC 3.79 L 4.13 L (4.40-5.60) X 10*6/uL Hgb 10.3 L 11.3 L (13.0-17.0) g/dL Hct 32.3 L 35.5 L (39.6-50.0) % MCHC 31.9 L 31.8 L (32.0-37.0) g/dL RDW 15.1 H 15.3 H (11.5-14.5) % MPV 12.6 H (9.5-12.2) FL Eosinophils # 0.39 H 0.41 H (0.04-0.35) X 10*3/uL Potassium 3.4 L (3.5-5.5) mmol/L Chloride 112 H (96-109) mmol/L BUN 7.2 L (9.0-27.0) mg/dL BUN/Creatinine Ratio 10.29 L (12.00-20.00) Ratio C-Reactive Protein (0.00-0.80) mg/dL 12/10/23 Range/Units 05:26 RBC (4.40-5.60) X 10*6/uL Hgb (13.0-17.0) g/dL Hct (39.6-50.0) % MCHC (32.0-37.0) g/dL RDW (11.5-14.5) % MPV (9.5-12.2) FL Eosinophils # (0.04-0.35) X 10*3/uL Potassium (3.5-5.5) mmol/L Chloride (96-109) mmol/L BUN (9.0-27.0) mg/dL BUN/Creatinine Ratio (12.00-20.00) Ratio C-Reactive Protein 1.20 H (0.00-0.80) mg/dL Microbiology - Last 24 Hours (Table) 12/08/23 17:48 Blood Culture - Preliminary Blood 12/08/23 17:25 Blood Culture - Preliminary Blood Assessment and Plan (1) Positive blood culture Current Visit: Yes Status: Acute Code(s): R78.81 - BACTEREMIA SNOMED Code (s): 673436517 Plan: 1patient with a positive blood culture with Streptococcus only 1 bottle positive at the outside facility in this patient with no fever no elevated white count and no obvious focus for this positive blood culture more likely representing skin contamination 2-blood culture has been repeated and so far negative 3-if repeat blood culture remains to be negative by a.m. will recommend discontinuation of antibiotics Time with Patient: Less than 30
--- NOTE | 2023-12-10 23:43 | P.CN ---
Psychiatric Consult - . Consult date: 12/09/23 Consult:: IDENTIFYING DATA: This patient is a 38 year old male with history of psychosis, polysubstance abuse and noncompliance with treatment, who was admitted for blood cultures and antiobotics after leaving another hospital AMA yesterday and being told he had a blood infection. REASON FOR REFERRAL: Psychiatry was consulted for "uncontrolled anxiety" HISTORY OF PRESENT ILLNESS: The patient presented to the hospital stating he has an infection in his blood. He had just signed out AMA from [facility] and reported he was told he has an infection in his blood. He was admitted to the medical unit and started in IV antibiotics. He is currently on a sitter since he keeps attempting to leave the unit. He has a legal guardian. He has been agitated and anxious, attempting to leave the unit despite requiring care and his guardian wanting him to receive care. So far today he has received Ativan 6 mg IV total, Valium 5mg po x 1. Yesterday evening he required Ativan 1 mg IV x 1 and Haldol 5 mg IM x 1. I evaluated patient on 12/09/2023 and he was found restlessly pacing in his room with a sitter at bedside to maintain his safety. He is a poor historian with a long history of drug use. He denies knowing how he got the infection in his blood. He has a history of IV drug use that he is currently denying. He denies depressed mood. He reports feeling anxious. He denies auditory or visual hallucinations. He denies paranoid ideations, however he appears to be mistrusting and stares at this provider. He is alert and oriented to person, place ([facility]), time (November 2023, Monday). Per chart, his medications as of 10/20/23 were Haldol decanoate 200 mg q14 days, Remeron 15 mg qhs, Effexor XR 75 mg po daily. Per medical note, his last Haldol decanoate injection was given as an outpatient yesterday 12/08/22 as an outpatient (and this was confirmed by our psychiatry RN contacting [facility]). Patient arrived to the ER with bag of medications including Wellbutrin XL 150 mg daily, Remeron 30 mg qhs, Buspar7.5 mg (frequency not documented in note). Per nursing note, patient has been demanding Ativan, and when nurse told him he is too sedated for Ativan he became aggressive and ripped out his IV. We reviewed his medications and he is fixated on restarting Wellbutrin XL 150 mg daily, however he appears highly anxious and his BP is elevated on assessment 169/109, HR 96. He reports his last use of alcohol was more than a week ago and reports he received alcohol detox at the last hospital he was admitted. He admits to drinking about one pint of liquor per month, and he has a history of heavy alcohol use which he attempts to minimize. His UDS on admission is positive for benzos and THC. Patients admits to using: Patient uses marijuana, methamphetamines, and amphetamines. He is also a daily tobacco user. He reported a heavy history of etoh abuse in the past. Patient continued to fixate on Wellbutrin and interview was terminated to avoid escalating patient. He has a history of medication seeking behaviors. Labs reviewed: CBC with diff, Hgb 10.3 (L) CMP: K 3.4 (L), LFTs normal, TSH: 0.324 (L) UA normal UDS: positive in benzos & THC Alcohol: <10 undetectable PAST PSYCHIATRIC HISTORY: Patient has a a history of: Schizoaffective disorder, depressive type Methamphetamine use disorder Cannabis use disorder Alcohol abuse Benzodiazapine abuse Nicotine dependence Malingering Homelessness Per chart, psychiatric medications are: Haldol decanoate 200 mg q14 days, Remeron 15 mg qhs, Effexor XR 75 mg po daily Previous psychiatric hospitalizations: several hospitalizations, most recently 10/17/23-10/20/23 at [facility] Psychiatric outpatient follow-up: Ranulfo Hamilton, and Dr Mckeon at [facility] History of suicide attempts in the past: Per chart, he has a history of several suicide attempts and drugs overdoses. PAST MEDICAL HISTORY: Past Medical History: GERD/Reflux, Hypertension, Liver Disease, Skin Disorder Additional Past Medical History / Comment(s): Hepatitis C, Pancreatitis, DDD, back pain, bilateral carpel tunnel syndrome. In the past has reported that he has heart disease that was found when he had kidney problems but he denies having a stress test or cardiac catheterization. History of Any Multi-Drug Resistant Organisms: None Reported MDRO Source:: unknown Past Surgical History: No Surgical Hx Reported, Unable to Obtain Additional Past Surgical History / Comment(s): Pt states he has had numerous "cysts" removed from where he injected IV drugs. Past Anesthesia/Blood Transfusion Reactions: No Reported Reaction, Unable to Obtain Additional Past Anesthesia/Blood Transfusion Reaction / Comment(s): In the past pt reported that he has never had surgery Past Psychological History: Anxiety, Bipolar, Depression, Schizophrenia Smoking Status: Current every day smoker Past Alcohol Use History: Abuse Past Drug Use History: Marijuana, Methamphetamine, Opiates ALLERGIES: as per EMR. CHEMICAL DEPENDENCY HISTORY: as per HPI. FAMILY PSYCHIATRIC/SUBSTANCE USE HISTORY: No known family psychiatric history. SOCIAL HISTORY: Patient was born and raised in [place]. Has a public guardian. Homeless, staying at a group home. MENTAL STATUS EXAM: General Appearance: Patient appears to be stated age, wearing hospital gown, several tattoos, disheveled hygiene and grooming. Behavior: Patient is standing, pacing his room. Speech: Patient's speech is fluent and non-pressured. Monotone. Mood/Affect: Patient reports their mood is anxious, affect is constricted Suicidality/Homicidality: Patient denies suicidal or homicidal ideation, plan or intent. Perceptions: Patient denies any visual hallucinations and denies any auditory hallucinations Though content/process: There is no evidence of any delusional thought content and thought process is concrete. He is fixated on Wellbutrin. Memory and concentration: AOX3, grossly intact for the purposes of this session. Judgment and insight: chronically poor/impulsive IMPRESSIONS: Delirium - resolving (infection) Schizoaffective disorder, depressive type Methamphetamine use disorder Cannabis use disorder Alcohol abuse Benzodiazapine abuse Nicotine dependence Homelessness PLAN: -At this time patient DOES NOT meet criteria for inpatient psychiatric admission. -Patient DOES NOT have decision making capacity at this time and is unable to reason through and communicate/appreciate the risks, benefits and alternatives to treatment. Defer to his legal guardian. -Delirium precautions recommended with patient including - avoiding use of narcotics and BEEF CATTLE SPECIALIST sedatives, limit anticholinergic medications when possible, frequent re-orientation, minimize use of restraints, open window shades during the day and close them at night -Would recommend the following medication changes/additions: Seroquel 25 mg BID for mood/agitation. Restart Buspar 7.5 mg BID. Start Valium 5 mg BID for anxiety/agitation; short-term use only while in the hospital. Continue Haldol-decanoate 200 mg IM q 2 weeks for psychosis, next dose due 12/22/23. Restart Remeron 15 mg QHS for depression/sleep. He is requesting Wellbutrin XL however he has a history of medication seeking medications to abuse for stimulant effect. Would not recommend restarting Wellbutrin if possible. -Continue 1:1 sitter for safety. -Cannot leave AMA at this time. Patient will need a petition and certification if attempting to leave AMA. -He will need close follow-up with his outpatient mental health team at [facility]. -Communicated plan to patient's nurse -We will follow loosely. -Please contact with any questions.
[2023-12-11] MEDS: VANCOMYCIN 1,500 MG in SODIUM CHLORIDE 0.9% 500 ML 500 ML IVPB SCH ×2 (03:26→11:38)
[2023-12-11] MEDS: LORazepam 1 MG TAB PO PRN ×2 (05:30→10:51)
[2023-12-11] MEDS: SODIUM CHLORIDE 0.9% 1,000 ML IV SCH ×2 (06:37→11:39)
[2023-12-11 06:57] LABS: African American GFR (CKD) >90 (>60 ml/min/1.73 sqM); Anion Gap 7 mmol/L; Blood Urea Nitrogen 4 mg/dL (9-20); Calcium 9.1 mg/dL (8.4-10.2); Carbon Dioxide 23 mmol/L (22-30); Chloride 112 mmol/L (98-107); Glucose 89 mg/dL (74-99); Non-African American GFR(CKD) >90 (>60 ml/min/1.73 sqM); Potassium 4.1 mmol/L (3.5-5.1); Sodium 142 mmol/L (137-145)
[2023-12-11] MEDS: FOLIC ACID 1 MG TAB PO SCH (07:52)
[2023-12-11] MEDS: busPIRone HCl 5 MG TAB PO SCH (07:52)
[2023-12-11] MEDS: MULTIVITAMINS, THERA 1 EACH TAB PO SCH (07:52)
[2023-12-11] MEDS: ENOXAPARIN 40 MG/0.4 ML SYRINGE SQ SCH (07:53)
[2023-12-11] MEDS: THIAMINE 100 MG TAB PO SCH (07:53)
[2023-12-11] MEDS: diazePAM 5 MG TAB PO SCH (07:53)
[2023-12-11] MEDS: QUEtiapine 25 MG TAB PO SCH (07:53)
[2023-12-11] MEDS: AMPICILLIN-SULBACTAM 3 GM in SODIUM CHLORIDE 0.9% 100 ML IVPB SCH (07:53)
[2023-12-11] MEDS: buPROPion XL 150 MG TAB.ER.24H PO SCH (07:53)
[2023-12-11] MEDS: NICOTINE 21MG/24HR PATCH TRANSDERM SCH (07:53)
[2023-12-11 08:30] VITALS: BP 142/84; PULSE 66; RESP 19; TEMP 98.3
--- NOTE | 2023-12-11 23:43 | P.PN ---
Subjective Progress Note Date: 12/11/23 Principal diagnosis: Reason for follow-up is a positive blood culture This is a telehealth visit Patient is a 38-year-old male with a past medical history significant for hypertension reflux hepatitis C pancreatitis history of drug overuse and alcoholism patient was recently admitted at [facility] for alcohol and drug overuse from March the patient left AGAINST MEDICAL ADVICE apparently the patient did have blood cultures done at that facility which came back positive for which the patient was advised to come back to the hospital. On today's evaluation that is 12/11/2023 the patient remains to be afebrile, patient is breathing comfortably on room air without need for supplemental oxygen, the patient denies having any chest pain no significant cough or sputum production no nausea vomiting no abdominal pain and no diarrhea, patient is feeling better wants to go home No CBC was done today, creatinine 0.70 blood cultures x 2 sets in this admission has been negative Objective - Vital Signs Vital signs: Vital Signs Temp 98.3 F 12/11/23 07:10 Pulse 66 12/11/23 07:10 Resp 19 12/11/23 07:10 BP 142/84 12/11/23 07:10 Pulse Ox 99 12/11/23 07:10 FiO2 Intake & Output 12/10/23 12/11/23 12/11/23 18:59 06:59 18:59 Intake Total 4000 Balance 4000 Intake: Oral 4000 Other: Voiding Method Toilet Toilet # Voids 6 4 - Exam Middle-age male lying in bed in no distress Respiratory system unlabored breathing decreased breath sound at the base Heart S1-S2 regular Abdominal soft no tenderness Extremities no edema feet Exam completed with the help of CONTROLS ENGINEER - Labs CBC & Chem 7: 12/10/23 05:26 12/11/23 06:08 Labs: Abnormal Lab Results - Last 24 Hours (Table) 12/11/23 Range/Units 06:08 Chloride 112 H (98-107) mmol/L BUN 4 L (9-20) mg/dL Microbiology - Last 24 Hours (Table) 12/08/23 17:48 Blood Culture - Preliminary Blood 12/08/23 17:25 Blood Culture - Preliminary Blood Assessment and Plan (1) Positive blood culture Status: Acute Code(s): R78.81 - BACTEREMIA SNOMED Code(s): 166350743 Plan: 1patient with a positive blood culture with Streptococcus only 1 bottle positive at the outside facility in this patient with no fever no elevated white count and no obvious focus for this positive blood culture more likely representing skin contamination 2-blood culture has been repeated and so far negative 3- more likely initial blood culture were contamination as we do not have any clear focus for positive blood culture and the blood culture done this admission before the patient was given antibiotic has been negative, no need for antibiotics or any further workup at this point Time with Patient: Less than 30
[2023-12-22] MEDS ORDERED: HALOPERIDOL DECANOATE 100 MG/ML 1 ML VIAL IM SCH (09:00)
== END 2023-12-11 15:51 | disposition home or self-care (01) | DRG 750 ==
LOC: EC 13:31 → 4SSUR 16:29
PROVIDERS: ADMIT Family Medicine; ATTEND Family Medicine
DX: F25.1 Schizoaffective disorder, depressive type (principal); F10.21 Alcohol dependence, in remission; J44.9 Chronic obstructive pulmonary disease, unspecified; I10 Essential (primary) hypertension; F15.10 Other stimulant abuse, uncomplicated; F13.10 Sedative, hypnotic or anxiolytic abuse, uncomplicated; F17.210 Nicotine dependence, cigarettes, uncomplicated; Y90.0 Blood alcohol level of less than 20 mg/100 ml; Z76.5 Malingerer [conscious simulation]; Z59.01 Sheltered homelessness; Z78.1 Physical restraint status; Z91.199 Patient's noncompliance with other medical treatment and regimen due to unspecified reason; Z86.19 Personal history of other infectious and parasitic diseases; Z87.19 Personal history of other diseases of the digestive system; Z91.51 Personal history of suicidal behavior; Z79.899 Other long term (current) drug therapy
CPT/HCPCS: 36415; 80048; 80053; 80143; 80179; 80202; 80306; 80320; 81003; 83690; 83735; 83880; 84100; 84443; 85025; 86140; 87040; 96361; 96365; 96372; 96375; 99285

== ENCOUNTER 2023-12-26 23:18 | Emergency (ER) | payer OTHER ==
[2023-12-27] MEDS: SODIUM CHLORIDE 0.9% 1,000 ML IV ONE (00:50)
[2023-12-27] MEDS: ONDANSETRON 4 MG/2 ML VIAL IVP STA (00:51)
[2023-12-27] MEDS: LORazepam 2 MG/ML INJ IV STA ×2 (00:52→15:44)
[2023-12-27 01:10] LABS: Basophils # (A) 0.1 k/uL (0-0.2); Basophils % (A) 1 %; Eosinophils # (A) 0.3 k/uL (0-0.7); Eosinophils % (A) 5 %; HCT 42.3 % (39.0-53.0); Lymphocytes # (A) 3.1 k/uL (1.0-4.8); Lymphocytes % (A) 49 %; MCH 27.8 pg (25.0-35.0); MCHC 33.4 g/dL (31.0-37.0); MCV 83.4 fL (80.0-100.0); Mean Platelet Volume 7.9; Monocytes # (A) 0.3 k/uL (0-1.0); Monocytes % (A) 5 %; Neutrophils # (A) 2.3 k/uL (1.3-7.7); Neutrophils % (A) 37 %; Platelet Count 267 k/uL (150-450); RBC 5.08 m/uL (4.30-5.90); WBC 6.3 k/uL (3.8-10.6)
[2023-12-27 01:11] LABS: ALT 19 U/L (4-49); AST 27 U/L (17-59); African American GFR (CKD) >90 (>60 ml/min/1.73 sqM); Albumin 4.5 g/dL (3.5-5.0); Alkaline Phosphatase 77 U/L (38-126); Anion Gap 10 mmol/L; Blood Urea Nitrogen 7 mg/dL (9-20); Calcium 9.2 mg/dL (8.4-10.2); Carbon Dioxide 25 mmol/L (22-30); Chloride 112 mmol/L (98-107); Glucose 116 mg/dL (74-99); Non-African American GFR(CKD) >90 (>60 ml/min/1.73 sqM); Potassium 3.6 mmol/L (3.5-5.1); Sodium 147 mmol/L (137-145); Total Bilirubin 0.3 mg/dL (0.2-1.3); Total Protein 8.1 g/dL (6.3-8.2)
[2023-12-27 01:12] LABS: HGB 14.1 gm/dL (13.0-17.5)
[2023-12-27 01:16] LABS: Alcohol 187 mg/dL
[2023-12-27 02:36] LABS: Appearance,Urine Clear (Clear); Bilirubin,Urine Negative (Negative); Blood,Urine Negative (Negative); Color,Urine Colorless; Glucose,Urine (UA) Negative (Negative); Ketones,Urine Negative (Negative); Leukocyte Esterase,Urine Negative (Negative); Nitrite,Urine Negative (Negative); PH, Urine 6.5 (5.0-8.0); Protein,Urine Negative (Negative); Specific Gravity,Urine 1.008 (1.001-1.035); Urobilinogen,Urine <2.0 mg/dL (<2.0)
[2023-12-27 02:56] LABS: Amphetamine Screen,Urine Not Detected (NotDetected); Barbiturate Screen,Urine Detected (NotDetected); Benzodiazepines Screen,Urine Detected (NotDetected); Cocaine Screen,Urine Not Detected (NotDetected); Methadone Screen, Urine Not Detected (NotDetected); Opiate Screen,Urine Not Detected (NotDetected); Oxycodone Screen, Urine Not Detected (NotDetected); Phencyclidine Screen,Urine Not Detected (NotDetected); Tricyclic Antidepressant,Urine Not Detected (NotDetected); Urn Cannabinoid Scrn Detected (NotDetected)
--- NOTE | 2023-12-27 06:42 | ED ---
Psych HPI - General Source: patient, EMS Mode of arrival: EMS <Emily Syed - Last Filed: 12/27/23 07:05> <Bernard Courtney - Last Filed: 12/27/23 15:29> <Rony Moran - Last Filed: 12/27/23 15:56> - General Chief Complaint: Psychiatric Symptoms Stated Complaint: ETOH Time Seen by Provider: 12/26/23 23:40 - History of Present Illness Initial Comments: 38-year-old male with history of polysubstance abuse who presents to the [facility] department via EMS. EMS found the patient sleeping on the side of the road. He states that he has been drinking today. He reported that he was suicidal to EMS and therefore they transferred the patient to the emergency department. He is unsure the last that he drank. He denies any injuries. Remainder of HPI is limited (Emily Syed) - Related Data Previous Rx's Medication Instructions Recorded Haloperidol Decanoate [Haldol D] 200 mg IM Q14D 1 Days #1 each 10/20/23 QUEtiapine [SEROquel] 25 mg PO BID 30 Days #60 tab 12/11/23 Thiamine [Vitamin B-1] 100 mg PO DAILY 30 Days #30 tab 12/11/23 buPROPion XL [Wellbutrin XL] 150 mg PO DAILY 30 Days #30 tab 12/11/23 busPIRone HCl [Buspar] 7.5 mg PO BID 30 Days #60 tab 12/11/23 Allergies Allergy/AdvReac Type Severity Reaction Status Date / Time No Known Allergies Allergy Verified 12/26/23 23:20 Review of Systems ROS Other: All systems not noted in ROS Statement are negative. <Emily Syed - Last Filed: 12/27/23 07:05> ROS Other: All systems not noted in ROS Statement are negative. <Bernard Courtney - Last Filed: 12/27/23 15:29> ROS Other: All systems not noted in ROS Statement are negative. <Rony Moran - Last Filed: 12/27/23 15:56> ROS Statement: Those systems with pertinent positive or pertinent negative responses have been documented in the HPI. Past Medical History Past Medical History: GERD/Reflux, Hypertension, Liver Disease, Skin Disorder Additional Past Medical History / Comment(s): Hepatitis C, Pancreatitis, DDD, back pain, bilateral carpel tunnel syndrome. In the past has reported that he has heart disease that was found when he had kidney problems but he denies having a stress test or cardiac catheterization. History of Any Multi-Drug Resistant Organisms: None Reported MDRO Source:: unknown Past Surgical History: No Surgical Hx Reported, Unable to Obtain Additional Past Surgical History / Comment(s): Pt states he has had numerous "cysts" removed from where he injected IV drugs. Past Anesthesia/Blood Transfusion Reactions: No Reported Reaction, Unable to Obtain Additional Past Anesthesia/Blood Transfusion Reaction / Comment(s): In the past pt reported that he has never had surgery Past Psychological History: Anxiety, Bipolar, Depression, Schizophrenia Smoking Status: Current every day smoker Past Alcohol Use History: Abuse Past Drug Use History: Marijuana, Methamphetamine, Opiates - Past Family History Mother Family Medical History: Unable to Obtain, Rheumatoid Arthritis (RA) Additional Family Medical History / Comment(s): Mother is . Father Family Medical History: Coronary Artery Disease (CAD) <Emily Syed - Last Filed: 12/27/23 07:05> Course Vital Signs 12/26/23 12/27/23 12/27/23 23:20 00:25 01:00 Temperature 97.5 F L Pulse Rate 83 78 83 Respiratory 18 18 18 Rate Blood Pressure 148/101 142/93 141/95 O2 Sat by Pulse 97 97 97 Oximetry 12/27/23 12/27/23 12/27/23 02:00 03:00 04:00 Temperature Pulse Rate 94 83 89 Respiratory 18 18 18 Rate Blood Pressure 156/100 141/91 113/60 O2 Sat by Pulse 98 97 98 Oximetry 12/27/23 12/27/23 12/27/23 05:00 06:35 07:37 Temperature Pulse Rate 97 90 Respiratory 18 18 18 Rate Blood Pressure 113/84 125/77 119/81 O2 Sat by Pulse 98 98 Oximetry 12/27/23 12/27/23 09:00 15:00 Temperature 97.8 F Pulse Rate 79 Respiratory 16 Rate Blood Pressure 115/74 147/93 O2 Sat by Pulse 97 Oximetry Medical Decision Making - Lab Data Result diagrams: 12/27/23 00:47 12/27/23 00:47 <Emily Syed - Last Filed: 12/27/23 07:05> - Lab Data Result diagrams: 12/27/23 00:47 12/27/23 00:47 <Bernard Courtney - Last Filed: 12/27/23 15:29> - Lab Data Result diagrams: 12/27/23 00:47 12/27/23 00:47 <Rony Moran - Last Filed: 12/27/23 15:56> - Medical Decision Making Was pt. sent in by a medical professional or institution ([facility], [employer] TECHNICIAN, urgent care, hospital, or senior living...) When possible be specific @ -No Did you speak to anyone other than the patient for history (EMS, parent, family, police, friend...)? What history was obtained from this source @ -EMS Did you review nursing and triage notes (agree or disagree)? Why? @ -I reviewed and agree with nursing and triage notes Were old charts reviewed (outside hosp., previous admission, EMS record, old EKG, old radiological studies, urgent care reports/EKG's, senior living records)? Report findings @ -No old charts were reviewed Differential Diagnosis (chest pain, altered mental status, abdominal pain women, abdominal pain men, vaginal bleeding, weakness, fever, dyspnea, syncope, headache, dizziness, GI bleed, back pain, seizure, CVA, palpatations, mental health, musculoskeletal)? @ -Not applicable EKG interpreted by me (3pts min.). @ -As above X-rays interpreted by me (1pt min.). @ -None done CT interpreted by me (1pt min.). @ -None done U/S interpreted by me (1pt. min.). @ -None done What testing was considered but not performed or refused? (CT, X-rays, U/S, labs)? Why? @ -None What meds were considered but not given or refused? Why? @ -None Did you discuss the management of the patient with other professionals (professionals i.e. [facility], POWER PLANT TECHNICIAN, lab, RT, psych nurse, social services assistant, underwear finisher, teacher, mounted police officer, case worker)? Give summary @ -No Was smoking cessation discussed for >3mins.? @ -No Was critical care preformed (if so, how long)? @ -No Were there social determinants of health that impacted care today? How? (Homelessness, low income, unemployed, alcoholism, drug addiction, transporta tion, low edu. Level, literacy, decrease access to med. care, care home, rehab)? @ -No Was there de-escalation of care discussed even if they declined (Discuss DNR or withdrawal of care, Hospice)? DNR status @ -No What co-morbidities impacted this encounter? (DM, HTN, Smoking, COPD, CAD, Cancer, CVA, ARF, Chemo, Hep., AIDS, mental health diagnosis, sleep apnea, morbid obesity)? @ -Bipolar disorder Was patient admitted / discharged? Hospital course, mention meds given and route, prescriptions, significant lab abnormalities, going to OR and other pertinent info. @ -Upon arrival patient was placed into room 9. Thorough history and physical exam was performed. Patient does look diaphoretic therefore IV is established and laboratory studies are conducted. He was given some Ativan. Laboratory studies are within normal limits. He will be evaluated by EPS in the morning Undiagnosed new problem with uncertain prognosis? @ -No Drug Therapy requiring intensive monitoring for toxicity (Heparin, Nitro, Insulin, Cardizem)? @ -No Were any procedures done? @ -No Diagnosis/symptom? @ -Acute alcohol intoxication, acute depression, suicidal ideation Acute, or Chronic, or Acute on Chronic? @ -Acute on chronic Uncomplicated (without systemic symptoms) or Complicated (systemic symptoms)? @ -Complicated Side effects of treatment? @ -No Exacerbation, Progression, or Severe Exacerbation? @ -No Poses a threat to life or bodily function? How? (Chest pain, USA, ID, pneumonia, PE, COPD, DKA, ARF, appy, cholecystitis, CVA, Diverticulitis, Homicidal, Suicidal, threat to staff... and all critical care pts) @ -No (Emily Syed) Patient was pending psychiatric evaluation. He was holding in the emergency department pending evaluation. Patient was medically cleared by prior physician. EPS evaluated patient and determined that he does not meet inpatient criteria. He will be placed in a taxicab to [facility] upon discharge. He will be given a safety plan. Patient was in agreement with this plan. (Bernard Courtney) - Lab Data Lab Results 12/27/23 12/27/23 12/27/23 Range/Units 00:47 00:47 00:47 WBC 6.3 (3.8-10.6) k/uL RBC 5.08 (4.30-5.90) m/uL Hgb 14.1 D (13.0-17.5) gm/dL Hct 42.3 (39.0-53.0) % MCV 83.4 (80.0-100.0) fL MCH 27.8 (25.0-35.0) pg MCHC 33.4 (31.0-37.0) g/dL RDW 15.0 (11.5-15.5) % Plt Count 267 (150-450) k/uL MPV 7.9 Neutrophils % 37 % Lymphocytes % 49 % Monocytes % 5 % Eosinophils % 5 % Basophils % 1 % Neutrophils # 2.3 (1.3-7.7) k/uL Lymphocytes # 3.1 (1.0-4.8) k/uL Monocytes # 0.3 (0-1.0) k/uL Eosinophils # 0.3 (0-0.7) k/uL Basophils # 0.1 (0-0.2) k/uL Sodium 147 H (137-145) mmol/L Potassium 3.6 (3.5-5.1) mmol/L Chloride 112 H (98-107) mmol/L Carbon Dioxide 25 (22-30) mmol/L Anion Gap 10 mmol/L BUN 7 L (9-20) mg/dL Creatinine 0.55 L (0.66-1.25) mg/dL Est GFR (CKD-EPI)AfAm >90 (>60 ml/min/1.73 sqM) Est GFR (CKD-EPI)NonAf >90 (>60 ml/min/1.73 sqM) Glucose 116 H (74-99) mg/dL Calcium 9.2 (8.4-10.2) mg/dL Total Bilirubin 0.3 (0.2-1.3) mg/dL AST 27 (17-59) U/L ALT 19 (4-49) U/L Alkaline Phosphatase 77 (38-126) U/L Total Protein 8.1 (6.3-8.2) g/dL Albumin 4.5 (3.5-5.0) g/dL Urine Color Colorless Urine Appearance Clear (Clear) Urine pH 6.5 (5.0-8.0) Ur Specific [place] 1.008 (1.001-1.035) Urine Protein Negative (Negative) Urine Glucose (UA) Negative (Negative) Urine Ketones Negative (Negative) Urine Blood Negative (Negative) Urine Nitrite Negative (Negative) Urine Bilirubin Negative (Negative) Urine Urobilinogen <2.0 (<2.0) mg/dL Ur Leukocyte Esterase Negative (Negative) Urine Opiates Screen Not Detected (NotDetected) Ur Oxycodone Screen Not Detected (NotDetected) Urine Methadone Screen Not Detected (NotDetected) Ur Barbiturates Screen Detected H (NotDetected) U Tricyclic Antidepress Not Detected (NotDetected) Ur Phencyclidine Scrn Not Detected (NotDetected) Ur Amphetamines Screen Not Detected (NotDetected) U Methamphetamines Scrn Not Detected (NotDetected) U Benzodiazepines Scrn Detected H (NotDetected) Urine Cocaine Screen Not Detected (NotDetected) U Marijuana (THC) Screen Detected H (NotDetected) Serum Alcohol 187 mg/dL Disposition <Emily Syed - Last Filed: 12/27/23 07:05> Is patient prescribed a controlled substance at d/c from ED?: No Time of Disposition: 15:28 <Bernard Courtney - Last Filed: 12/27/23 15:29> Is patient prescribed a controlled substance at d/c from ED?: No <Rony Moran - Last Filed: 12/27/23 15:56> Clinical Impression: Alcoholic intoxication, Depression, Suicidal ideation Disposition: HOME SELF-CARE Condition: Good Instructions (If sedation given, give patient instructions): Brief Psychotic Disorder (ED), Psychotic Disorder (ED) Additional Instructions: follow safety plan Referrals: None,Stated [Primary Care Provider] - 1-2 days
[2023-12-27 16:13] VITALS: BP 147/93; PULSE 79; RESP 16; TEMP 97.8
== END 2023-12-27 16:04 | disposition home or self-care (01) ==
LOC: EC 23:18
DX: F10.129 Alcohol abuse with intoxication, unspecified (principal); F32.A Depression, unspecified; R45.851 Suicidal ideations; I10 Essential (primary) hypertension; F17.200 Nicotine dependence, unspecified, uncomplicated; F12.90 Cannabis use, unspecified, uncomplicated; F15.90 Other stimulant use, unspecified, uncomplicated; F11.90 Opioid use, unspecified, uncomplicated; Z86.59 Personal history of other mental and behavioral disorders; Y90.6 Blood alcohol level of 120-199 mg/100 ml
CPT/HCPCS: 82075; 36415; 80053; 85025; 81003; 80306; 99285; 96374; 96375; 96376; 96361; G0480; J2060; J2405; 80320

== ENCOUNTER 2023-12-27 22:36 | Observation (INO) | payer OTHER ==
[2023-12-27 23:28] LABS: Basophils # (A) 0.1 k/uL (0-0.2); Basophils % (A) 1 %; Eosinophils # (A) 0.3 k/uL (0-0.7); Eosinophils % (A) 3 %; HCT 39.3 % (39.0-53.0); HGB 13.1 gm/dL (13.0-17.5); Lymphocytes # (A) 2.8 k/uL (1.0-4.8); Lymphocytes % (A) 36 %; MCH 27.6 pg (25.0-35.0); MCHC 33.2 g/dL (31.0-37.0); MCV 83.2 fL (80.0-100.0); Monocytes # (A) 0.3 k/uL (0-1.0); Monocytes % (A) 3 %; Neutrophils # (A) 4.2 k/uL (1.3-7.7); Neutrophils % (A) 54 %; Platelet Count 251 k/uL (150-450); RBC 4.72 m/uL (4.30-5.90); WBC 7.7 k/uL (3.8-10.6)
[2023-12-28] LABS: ALT 15 U/L (4-49); AST 25 U/L (17-59); African American GFR (CKD) >90 (>60 ml/min/1.73 sqM); Albumin 4.2 g/dL (3.5-5.0); Alkaline Phosphatase 71 U/L (38-126); Anion Gap 10 mmol/L; Blood Urea Nitrogen 12 mg/dL (9-20); Calcium 9.1 mg/dL (8.4-10.2); Carbon Dioxide 22 mmol/L (22-30); Chloride 115 mmol/L (98-107); Glucose 90 mg/dL (74-99); Non-African American GFR(CKD) >90 (>60 ml/min/1.73 sqM); Potassium 3.6 mmol/L (3.5-5.1); Sodium 147 mmol/L (137-145); Total Bilirubin 0.3 mg/dL (0.2-1.3); Total Protein 7.4 g/dL (6.3-8.2)
--- NOTE | 2023-12-28 00:01 | CT ---
EXAM: CT Head Without Intravenous Contrast CLINICAL HISTORY: Fall, intoxicated TECHNIQUE: Axial computed tomography images of the head/brain without intravenous contrast. CTDI is 45.2 mGy and DLP is 1072 mGy-cm. This CT exam was performed using one or more of the following dose reduction techniques: automated exposure control, adjustment of the mA and/or kV according to patient size, and/or use of iterative reconstruction technique. COMPARISON: CT head without contrast dated 09/07/2023 FINDINGS: Brain: Unremarkable. No hemorrhage. No significant white matter disease. No edema. Ventricles: Unremarkable. No ventriculomegaly. Bones/joints: Unremarkable. No acute fracture. Soft tissues: No significant overlying acute traumatic soft tissue abnormality. No radiopaque foreign body. Sinuses: Mucosal thickening of the maxillary sinuses and several ethmoid air cells. Mild mucosal prominence of the left sphenoid sinus and inferior right frontal sinus. Mastoid air cells: Unremarkable as visualized. No mastoid effusion. IMPRESSION: No acute intracranial process identified. EXAM: CT Cervical Spine Without Intravenous Contrast CLINICAL HISTORY: Fall, intoxicated TECHNIQUE: Axial computed tomography images of the cervical spine without intravenous contrast. CTDI is 12 mGy and DLP is 370.6 mGy-cm. This CT exam was performed using one or more of the following dose reduction techniques: automated exposure control, adjustment of the mA and/or kV according to patient size, and/or use of iterative reconstruction technique. COMPARISON: CT cervical spine 08/28/2023 FINDINGS: Vertebrae: The vertebral bodies are intact without acute osseous traumatic injury. No anterolisthesis or retrolisthesis is identified. The facet joints are well aligned without subluxation or dislocation. The pedicles, transverse processes and spinous processes are intact. Discs/spinal canal/neural foramina: No acute findings. No osseous spinal canal stenosis. Soft tissues: Unremarkable. Lung apices: The included lung apices demonstrate no evidence for acute traumatic injury. IMPRESSION: No acute osseous traumatic injury or significant abnormal alignment involving the cervical spine.
[2023-12-28 00:04] LABS: Alcohol 261 mg/dL
[2023-12-28] MEDS ORDERED: ACETAMINOPHEN TAB 325 MG TAB PO PRN (01:26)
[2023-12-28] MEDS ORDERED: NALOXONE 0.4 MG/ML 1 ML VIAL IV PRN (01:26)
--- NOTE | 2023-12-28 01:26 | ED ---
Alcohol HPI - General Chief Complaint: Alcohol Stated Complaint: ETOH Time Seen by Provider: 12/27/23 22:50 Source: EMS Mode of arrival: EMS Limitations: altered mental status - History of Present Illness Initial Comments: 38-year-old male with past medical history of polysubstance abuse, hepatitis C who presents emergency department after he was found on the ground in a parking lot. The patient reportedly drank a pint and a half of vodka and then fell face first down onto the ground. He states that his head struck a log. He is denying loss of consciousness. He is unsure who called EMS. Patient does have visible abrasion noted to the right cheek. He was just discharged from the hospital earlier today after stating that he was suicidal. Patient denies any other injuries. He does not take any blood thinners. No other alleviating, precipitating or modifying factors - Related Data Previous Rx's Medication Instructions Recorded Haloperidol Decanoate [Haldol D] 200 mg IM Q14D 1 Days #1 each 10/20/23 QUEtiapine [SEROquel] 25 mg PO BID 30 Days #60 tab 12/11/23 Thiamine [Vitamin B-1] 100 mg PO DAILY 30 Days #30 tab 12/11/23 buPROPion XL [Wellbutrin XL] 150 mg PO DAILY 30 Days #30 tab 12/11/23 busPIRone HCl [Buspar] 7.5 mg PO BID 30 Days #60 tab 12/11/23 Allergies Allergy/AdvReac Type Severity Reaction Status Date / Time flea AdvReac Rash/Hives Uncoded 12/27/23 22:55 Review of Systems ROS Statement: Those systems with pertinent positive or pertinent negative responses have been documented in the HPI. ROS Other: All systems not noted in ROS Statement are negative. Past Medical History Past Medical History: GERD/Reflux, Hypertension, Liver Disease, Skin Disorder Additional Past Medical History / Comment(s): Hepatitis C, Pancreatitis, DDD, back pain, bilateral carpel tunnel syndrome. In the past has reported that he has heart disease that was found when he had kidney problems but he denies having a stress test or cardiac catheterization. History of Any Multi-Drug Resistant Organisms: None Reported MDRO Source:: unknown Past Surgical History: No Surgical Hx Reported, Unable to Obtain Additional Past Surgical History / Comment(s): Pt states he has had numerous "cysts" removed from where he injected IV drugs. Past Anesthesia/Blood Transfusion Reactions: No Reported Reaction, Unable to Obtain Additional Past Anesthesia/Blood Transfusion Reaction / Comment(s): In the past pt reported that he has never had surgery Past Psychological History: Anxiety, Bipolar, Depression, Schizophrenia Smoking Status: Current every day smoker Past Alcohol Use History: Abuse Past Drug Use History: Marijuana, Methamphetamine, Opiates - Past Family History Mother Family Medical History: Unable to Obtain, Rheumatoid Arthritis (RA) Additional Family Medical History / Comment(s): Mother is . Father Family Medical History: Coronary Artery Disease (CAD) General Exam Limitations: altered mental status Course Vital Signs 12/27/23 12/28/23 12/28/23 22:44 00:00 02:00 Temperature 97.8 F Pulse Rate 87 110 H 72 Pulse Rate [ Pulse Oximetery ] Respiratory 16 18 16 Rate Blood Pressure 160/107 145/78 141/89 Blood Pressure [Left Arm] O2 Sat by Pulse 96 96 95 Oximetry 12/28/23 03:00 Temperature 98.4 F Pulse Rate Pulse Rate [ 72 Pulse Oximetery ] Respiratory 15 Rate Blood Pressure Blood Pressure 131/86 [Left Arm] O2 Sat by Pulse 98 Oximetry Medical Decision Making - Lab Data Result diagrams: 12/27/23 23:15 12/27/23 23:15 Lab Results 12/27/23 12/27/23 Range/Units 23:15 23:15 WBC 7.7 (3.8-10.6) k/uL RBC 4.72 (4.30-5.90) m/uL Hgb 13.1 (13.0-17.5) gm/dL Hct 39.3 (39.0-53.0) % MCV 83.2 (80.0-100.0) fL MCH 27.6 (25.0-35.0) pg MCHC 33.2 (31.0-37.0) g/dL RDW 15.0 (11.5-15.5) % Plt Count 251 (150-450) k/uL MPV 8.0 Neutrophils % 54 % Lymphocytes % 36 % Monocytes % 3 % Eosinophils % 3 % Basophils % 1 % Neutrophils # 4.2 (1.3-7.7) k/uL Lymphocytes # 2.8 (1.0-4.8) k/uL Monocytes # 0.3 (0-1.0) k/uL Eosinophils # 0.3 (0-0.7) k/uL Basophils # 0.1 (0-0.2) k/uL Sodium 147 H (137-145) mmol/L Potassium 3.6 (3.5-5.1) mmol/L Chloride 115 H (98-107) mmol/L Carbon Dioxide 22 (22-30) mmol/L Anion Gap 10 mmol/L BUN 12 (9-20) mg/dL Creatinine 0.62 L (0.66-1.25) mg/dL Est GFR (CKD-EPI)AfAm >90 (>60 ml/min/1.73 sqM) Est GFR (CKD-EPI)NonAf >90 (>60 ml/min/1.73 sqM) Glucose 90 (74-99) mg/dL Calcium 9.1 (8.4-10.2) mg/dL Total Bilirubin 0.3 (0.2-1.3) mg/dL AST 25 (17-59) U/L ALT 15 (4-49) U/L Alkaline Phosphatase 71 (38-126) U/L Total Protein 7.4 (6.3-8.2) g/dL Albumin 4.2 (3.5-5.0) g/dL Serum Alcohol 261 H* mg/dL Disposition Clinical Impression: Alcoholic intoxication, Fall, Head injury Disposition: ADMITTED IP TO THIS [facility] Condition: Stable Is patient prescribed a controlled substance at d/c from ED?: No Time of Disposition: 01: Decision to Admit Reason: Admit from EC Decision Date: 12/28/23 Decision Time: :
[2023-12-28] MEDS: SODIUM CHLORIDE 0.9% 1,000 ML IV SCH (02:04)
[2023-12-28] MEDS ORDERED: LORazepam 0.5 MG TAB PO PRN (03:04)
[2023-12-28] MEDS ORDERED: LORazepam 2 MG/ML INJ IV PRN ×3 (03:04)
[2023-12-28] MEDS: LORazepam 1 MG TAB PO PRN (03:15)
[2023-12-28] MEDS: DEXTROSE 5%-0.45% NACL 1,000 ML IV SCH (03:16)
[2023-12-28 03:26] VITALS: RESP 15
--- NOTE | 2023-12-28 05:46 | P.HPIM ---
History of Present Illness H&P Date: 12/28/23 Chief Complaint: Alcohol intoxication 38-year-old male with known history of schizophrenia and bipolar disorder hepatitis C liver disease Patient does not participate in the interview and providing any history at this time due to acute intoxication, history was obtained by reviewing medical records and ED documentation and discussing the case with ED doctor. , Patient patient is well-known to our service with recurrent admissions to the mental health unit due to schizophrenia and bipolar disorder frequent presentations with alcohol intoxication he is known to polysubstance abuse he was found on the ground in the parking lot intoxicated in the ED he provided some information talking about falling hitting his head against a log and lost losing consciousness due to being intoxicated review of systems Patient does not provide any history does not answer any questions on exam Constitutional: Sleeping refuses to participate in medical exam and history taking Eyes: Anicteric sclerae, moist conjunctiva, Otherwise resist opening his eyes ENMT: Patient has an abrasion on his right cheek no active bleeding Neck: Supple, no masses, or JVD No carotid bruits No thyromegaly Lungs: Clear to auscultation Clear to percussion Normal respiratory effort, no accessory muscle use Cardiovascular: Heart regular in rate and rhythm, No murmurs, gallops, or rubs No peripheral edema Abdominal: Soft Nontender, no guarding, rebound or rigidity Abdomen moving with respiration Normoactive bowel sounds . Extremities: No digital cyanosis No clubbing Pedal pulses intact and symmetrical Radial pulses intact and symmetrical No calf tenderness Psychiatric: Patient did not answer any of my questions he was pretending to be sleeping the whole time Neuro does not participate in physical exam Past Medical History Past Medical History: GERD/Reflux, Hypertension, Liver Disease, Skin Disorder Additional Past Medical History / Comment(s): Hepatitis C, Pancreatitis, DDD, back pain, bilateral carpel tunnel syndrome. In the past has reported that he has heart disease that was found when he had kidney problems but he denies having a stress test or cardiac catheterization. History of Any Multi-Drug Resistant Organisms: None Reported MDRO Source:: unknown Past Surgical History: No Surgical Hx Reported, Unable to Obtain Additional Past Surgical History / Comment(s): Pt states he has had numerous "cysts" removed from where he injected IV drugs. Past Anesthesia/Blood Transfusion Reactions: No Reported Reaction, Unable to Obtain Additional Past Anesthesia/Blood Transfusion Reaction / Comment(s): In the past pt reported that he has never had surgery Past Psychological History: Anxiety, Bipolar, Depression, Schizophrenia Smoking Status: Current every day smoker Past Alcohol Use History: Abuse Past Drug Use History: Marijuana, Methamphetamine, Opiates - Past Family History Mother Family Medical History: Unable to Obtain, Rheumatoid Arthritis (RA) Additional Family Medical History / Comment(s): Mother is . Father Family Medical History: Coronary Artery Disease (CAD) Medications and Allergies Home Medications Medication Instructions Recorded Confirmed Type Haloperidol Decanoate [Haldol D] 200 mg IM Q14D 1 Days #1 each 10/20/23 12/08/23 Rx QUEtiapine [SEROquel] 25 mg PO BID 30 Days #60 tab 12/11/23 Rx Thiamine [Vitamin B-1] 100 mg PO DAILY 30 Days #30 tab 12/11/23 Rx buPROPion XL [Wellbutrin XL] 150 mg PO DAILY 30 Days #30 tab 12/11/23 Rx busPIRone HCl [Buspar] 7.5 mg PO BID 30 Days #60 tab 12/11/23 Rx Allergies Allergy/AdvReac Type Severity Reaction Status Date / Time flea AdvReac Rash/Hives Uncoded 12/27/23 22:55 Physical Exam Vitals: Vital Signs Temp Pulse Pulse Resp BP BP Pulse Ox 12/28/23 03:00 98.4 F 72 15 131/86 98 12/28/23 02:00 72 16 141/89 95 12/28/23 00:00 110 H 18 145/78 96 12/27/23 22:44 97.8 F 87 16 160/107 96 Intake and Output 12/27/23 12/27/23 12/28/23 14:59 22:59 06:59 Other: Weight 83.915 kg 83.915 kg Results CBC & Chem 7: 12/27/23 23:15 12/27/23 23:15 Labs: Abnormal Lab Results - Last 24 Hours (Table) 12/27/23 Range/Units 23:15 Sodium 147 H (137-145) mmol/L Chloride 115 H (98-107) mmol/L Creatinine 0.62 L (0.66-1.25) mg/dL Serum Alcohol 261 H* mg/dL Thrombosis Risk Factor Assmnt - Choose All That Apply Any of the Below Risk Factors Present?: Yes Each Factor Represents 1 point: Obesity (BMI >25) Other Risk Factors: No Other congenital or acquired thrombophilia - If yes, enter type in comment: No Thrombosis Risk Factor Assessment Total Risk Factor Score: 1 Thrombosis Risk Factor Assessment Level: Low Risk Assessment and Plan Assessment: 38-year-old male known to polysubstance abuse with history of bipolar disorder schizophrenia he was found intoxicated in a parking lot and was brought into the hospital I discussed case with ED doctor accepted admission for acute alcohol intoxication with anticipated length of stay less than 2 midnights Acute severe alcohol intoxication Alcohol level 261 Seizure precautions Fall precautions Benzos per CIWA scale Thiamine daily p.o. IV fluid hydration normal saline 130 cc/h Blood alcohol level 261 Blood work showing white count 7.7 hemoglobin 13 Sodium 147 potassium 3.6 BUN 12 creatinine 0.6 Reported falling on his face while intoxicated CT scan of the head and neck no acute intracranial pathology no acute cervical fractures Full code DVT prophylaxis mechanical Await pharmacy to verify home medications
[2023-12-28 08:22] VITALS: BP 115/75; PULSE 69; TEMP 97.9
[2023-12-28] MEDS: HEPARIN SODIUM,PORCINE 5,000 UNIT/ML 1 ML VIAL SQ SCH (08:31)
--- NOTE | 2023-12-28 13:14 | P.DS ---
Providers Date of admission: 12/28/23 01:26 Expected date of discharge: 12/28/23 Attending physician: Maday Blair MD Primary care physician: Stated None Hospital Course: Discharge Diagnosis: Acute alcohol intoxication in active alcoholic Hypernatremia and hyperchloremia Reported fall while intoxicated prior to arrival, CT head and cervical spine was completed negative for acute process. Polysubstance abuse Schizoaffective disorder Bipolar disorder Hospital Course: Patient is a 38-year-old male with a past medical history of alcoholism, polysubstance abuse, and schizoaffective disorder. He is well-known to our services secondary to multiple recurrent admissions for alcohol/substance abuse and mental health disorders. He presented to the emergency department on 12/27/2023 with alcohol intoxication. He underwent full evaluation in the emergency department. Vital signs upon arrival show blood pressure 160/107, heart rate 87, respiratory rate 16, temp 97.8 F, SpO2 of 96% on room air. Labs completed and reviewed. CBC unremarkable. BMP showing mild hyponatremia with sodium of 147 and hyperchloremia with chloride of 115. Liver profile unremarkable. Serum alcohol level was elevated at 261. CT head and cervical spine completed negative for acute process. Patient was admitted under our services provided with IV fluid hydration with D5.45% NS and was placed on CIWA protocol for alcohol withdrawal. Patient requesting discharge as he has an appointment with [facility] this afternoon. Patient is medically stable at this time vital signs as follows blood pressure 115/75, heart rate 69, respiratory rate 15, temp 97.9 F, and SpO2 of 99% on room air. Patient strongly advised to avoid any and all alcohol use. Physical exam: Patient seen and examined at bedside. Vital signs reviewed and stable. General: Nontoxic, no distress and appears stated age. Derm: Skin warm and dry, normal coloration for ethnicity. Head: Atraumatic, normocephalic and symmetric. Eyes: EOMs intact, no lid lag, and anicteric sclera Mouth: no lip lesions, mucus membranes moist Cardiovascular: regular rate and rhythm with normal S1S2, no murmur, positive posterior tibial pulses bilaterally, and cap refill < 2 seconds. Lungs: Respirations even, regular, and unlabored on room air. Lungs CTA bilaterally, no rhonchi, no rales, no wheezing, and no accessory muscle usage. Abdominal: soft, nontender to palpation, no guarding, no appreciable organomegaly Ext: ROM intact. No gross muscle atrophy, no edema, no contractures Neuro: Speech clear, face symmetrical and CN II-XII grossly intact with no noted focal neuro deficits Psych: Alert and oriented to person, place, time, and situation. Appropriate and pleasant affect. A total of 31 minutes of time were spent preparing this complex discharge summary. Pt was discharged on 12/28/2023 at 1:10 PM. Patient was seen independently by Nurse Practitioner. This document was prepared using [facility] dictation software. Please allow for errors in technical applications scientist while rare they do occur. John Breaux NP rendered care for this patient independently, reviewed the findings and plan as documented in the note above. I did not physically speak with or examine the patient on this date. Patient Condition at Discharge: Stable Plan - Discharge Summary New Discharge Prescriptions: Continue Thiamine [Vitamin B-1] 100 mg PO DAILY 30 Days #30 tab Haloperidol Decanoate [Haldol D] 200 mg IM Q14D 1 Days #1 each busPIRone HCl [Buspar] 7.5 mg PO BID 30 Days #60 tab QUEtiapine [SEROquel] 25 mg PO BID 30 Days #60 tab buPROPion XL [Wellbutrin XL] 150 mg PO DAILY 30 Days #30 tab Discharge Medication List Haloperidol Decanoate [Haldol D] 200 mg IM Q14D 1 Days #1 each 10/20/23 [Rx] QUEtiapine [SEROquel] 25 mg PO BID 30 Days #60 tab 12/11/23 [Rx] Thiamine [Vitamin B-1] 100 mg PO DAILY 30 Days #30 tab 12/11/23 [Rx] buPROPion XL [Wellbutrin XL] 150 mg PO DAILY 30 Days #30 tab 12/11/23 [Rx] busPIRone HCl [Buspar] 7.5 mg PO BID 30 Days #60 tab 12/11/23 [Rx] Follow up Appointment(s)/Referral(s): None,Stated [Primary Care Provider] - 1-2 days Patient Instructions/Handouts: Alcohol Intoxication (DC), Abuse of Alcohol (DC), Fall Prevention (DC) Activity/Diet/Wound Care/Special Instructions: Activity: As tolerated. Take breaks as needed. Diet: Regular diet Special Instructions: Strongly avoid cessation of any and all alcohol use Thank you for allowing us to participate in your care, it was truly a pleasure having you for our patient!!! Discharge Disposition: HOME SELF-CARE
[2023-12-29] MEDS ORDERED: THIAMINE 100 MG TAB PO SCH (09:00)
== END 2023-12-28 13:18 | disposition home or self-care (01) ==
LOC: EC 22:36 → 6NMEDSUR 12-28 01:26
PROVIDERS: ADMIT Internal Medicine; ATTEND Internal Medicine
DX: F10.229 Alcohol dependence with intoxication, unspecified (principal); Y90.8 Blood alcohol level of 240 mg/100 ml or more; S09.90XA Unspecified injury of head, initial encounter; W19.XXXA Unspecified fall, initial encounter; E87.0 Hyperosmolality and hypernatremia; E87.8 Other disorders of electrolyte and fluid balance, not elsewhere classified; F19.10 Other psychoactive substance abuse, uncomplicated; K21.9 Gastro-esophageal reflux disease without esophagitis; I10 Essential (primary) hypertension; F25.9 Schizoaffective disorder, unspecified; F31.9 Bipolar disorder, unspecified; F41.9 Anxiety disorder, unspecified; F17.200 Nicotine dependence, unspecified, uncomplicated; Z86.19 Personal history of other infectious and parasitic diseases; Z79.899 Other long term (current) drug therapy; Y92.481 Parking lot as the place of occurrence of the external cause
CPT/HCPCS: 96372; 99285; 36415; 80053; 85025; 72125; 70450; G0378; G0480; J1644; 80320

== ENCOUNTER 2023-12-29 15:03 | Observation (INO) | payer OTHER ==
--- NOTE | 2023-12-29 15:30 | ED ---
General Adult HPI - General Chief complaint: Alcohol Stated complaint: Etoh Time Seen by Provider: 12/29/23 15:09 Source: patient, EMS, RN notes reviewed, old records reviewed Mode of arrival: EMS Limitations: no limitations - History of Present Illness Initial comments: 8-year-old male presents with acute alcohol intoxication. Patient is homeless, was found at [facility] Loya admits to heavy alcohol consumption. Patient is slow to respond but able to answer simple questions. He denies pain complaints, denies trauma. - Related Data Previous Rx's Medication Instructions Recorded Haloperidol Decanoate [Haldol D] 200 mg IM Q14D 1 Days #1 each 10/20/23 QUEtiapine [SEROquel] 25 mg PO BID 30 Days #60 tab 12/11/23 Thiamine [Vitamin B-1] 100 mg PO DAILY 30 Days #30 tab 12/11/23 buPROPion XL [Wellbutrin XL] 150 mg PO DAILY 30 Days #30 tab 12/11/23 busPIRone HCl [Buspar] 7.5 mg PO BID 30 Days #60 tab 12/11/23 Allergies Allergy/AdvReac Type Severity Reaction Status Date / Time flea AdvReac Rash/Hives Uncoded 12/28/23 07:53 Review of Systems ROS Statement: Those systems with pertinent positive or pertinent negative responses have been documented in the HPI. ROS Other: All systems not noted in ROS Statement are negative. Past Medical History Past Medical History: GERD/Reflux, Hypertension, Liver Disease, Skin Disorder Additional Past Medical History / Comment(s): Hepatitis C, Pancreatitis, DDD, back pain, bilateral carpel tunnel syndrome. In the past has reported that he has heart disease that was found when he had kidney problems but he denies having a stress test or cardiac catheterization. History of Any Multi-Drug Resistant Organisms: None Reported MDRO Source:: unknown Past Surgical History: No Surgical Hx Reported, Unable to Obtain Additional Past Surgical History / Comment(s): Pt states he has had numerous "cysts" removed from where he injected IV drugs. Past Anesthesia/Blood Transfusion Reactions: No Reported Reaction, Unable to Obtain Additional Past Anesthesia/Blood Transfusion Reaction / Comment(s): In the past pt reported that he has never had surgery Past Psychological History: Anxiety, Bipolar, Depression, Schizophrenia Smoking Status: Current every day smoker Past Alcohol Use History: Abuse Past Drug Use History: Marijuana, Methamphetamine, Opiates - Past Family History Mother Family Medical History: Unable to Obtain, Rheumatoid Arthritis (RA) Additional Family Medical History / Comment(s): Mother is . Father Family Medical History: Coronary Artery Disease (CAD) General Exam Limitations: no limitations General appearance: appears intoxicated, lethargic Head exam: Present: atraumatic, normocephalic Eye exam: Present: normal appearance. Absent: PERRL, EOMI Neck exam: Present: normal inspection Respiratory exam: Present: normal lung sounds bilaterally. Absent: respiratory distress, wheezes Cardiovascular Exam: Present: regular rate, normal rhythm GI/Abdominal exam: Present: soft. Absent: distended, tenderness, guarding Extremities exam: Present: normal inspection, normal capillary refill Neurological exam: Present: alert. Absent: motor sensory deficit Psychiatric exam: Present: normal affect, normal mood Skin exam: Present: warm, dry, intact Course Vital Signs 12/29/23 12/29/23 15:08 15:12 Temperature 98.3 F Pulse Rate 71 64 Respiratory 17 18 Rate Blood Pressure 159/106 156/117 O2 Sat by Pulse 93 L 94 L Oximetry Medical Decision Making - Medical Decision Making Was pt. sent in by a medical professional or institution (, PA, ONLINE EDITOR, urgent care, hospital, or residential...) When possible be specific @ -No Did you speak to anyone other than the patient for history (EMS, parent, family, police, friend...)? What history was obtained from this source @ -No Did you review nursing and triage notes (agree or disagree)? Why? @ -I reviewed and agree with nursing and triage notes Were old charts reviewed (outside hosp., previous admission, EMS record, old EKG, old radiological studies, urgent care reports/EKG's, residential records)? Report findings @ -No old charts were reviewed Differential Diagnosis (chest pain, altered mental status, abdominal pain women, abdominal pain men, vaginal bleeding, weakness, fever, dyspnea, syncope, headache, dizziness, GI bleed, back pain, seizure, CVA, palpatations, mental health, musculoskeletal)? @Alcohol intoxication EKG interpreted by me (3pts min.). @ -As above X-rays interpreted by me (1pt min.). @ -None done CT interpreted by me (1pt min.). @ -None done U/S interpreted by me (1pt. min.). @ -None done What testing was considered but not performed or refused? (CT, X-rays, U/S, labs)? Why? @ -None What meds were considered but not given or refused? Why? @ -None Did you discuss the management of the patient with other professionals (professionals i.e. , PA, ONLINE EDITOR, lab, RT, psych nurse, social sciences chair, log deck tender, teacher, protective officer, case management manager)? Give summary @ -[Dr. David Was smoking cessation discussed for >3mins.? @ -No Was critical care preformed (if so, how long)? @ -No Were there social determinants of health that impacted care today? How? (Homelessness, low income, unemployed, alcoholism, drug addiction, transportation, low edu. Level, literacy, decrease access to med. care, care home, rehab)? @ -No Was there de-escalation of care discussed even if they declined (Discuss DNR or withdrawal of care, Hospice)? DNR status @ -No What co-morbidities impacted this encounter? (DM, HTN, Smoking, COPD, CAD, Cancer, CVA, ARF, Chemo, Hep., AIDS, mental health diagnosis, sleep apnea, morbid obesity)? @ -[Alcohol abuse Was patient admitted / discharged? Hospital course, mention meds given and route, prescriptions, significant lab abnormalities, going to OR and other pertinent info. @ -38-year-old male with history of alcohol abuse presenting with alcohol intoxication. Patient is homeless. Serum alcohol is elevated at 315 with a sodium of 146. Patient will be admitted for acute alcohol poisoning and hyponatremia. Undiagnosed new problem with uncertain prognosis? @ -[No Drug Therapy requiring intensive monitoring for toxicity (Heparin, Nitro, Insulin, Cardizem)? @ -No Were any procedures done? @ -No Diagnosis/symptom? @ -Acute alcohol intoxication Acute, or Chronic, or Acute on Chronic? @ -Acute on chronic Uncomplicated (without systemic symptoms) or Complicated (systemic symptoms)? @ -Default Side effects of treatment? @ -No Exacerbation, Progression, or Severe Exacerbation? @ -No Poses a threat to life or bodily function? How? (Chest pain, USA, MS, pneumonia, PE, COPD, DKA, ARF, appy, cholecystitis, CVA, Diverticulitis, Homicidal, Suicidal, threat to staff... and all critical care pts) @ -Yes, alcohol poisoning, electrolyte abnormality - Lab Data Result diagrams: 12/29/23 15:53 12/29/23 15:53 Lab Results 12/29/23 12/29/23 12/29/23 Range/Units 15:53 15:53 16:00 WBC 8.5 (3.8-10.6) k/uL RBC 4.93 (4.30-5.90) m/uL Hgb 13.8 (13.0-17.5) gm/dL Hct 40.8 (39.0-53.0) % MCV 82.8 (80.0-100.0) fL MCH 28.0 (25.0-35.0) pg MCHC 33.8 (31.0-37.0) g/dL RDW 15.1 (11.5-15.5) % Plt Count 256 (150-450) k/uL MPV 8.8 Neutrophils % 58 % Lymphocytes % 34 % Monocytes % 5 % Eosinophils % 1 % Basophils % 1 % Neutrophils # 5.0 (1.3-7.7) k/uL Lymphocytes # 2.9 (1.0-4.8) k/uL Monocytes # 0.4 (0-1.0) k/uL Eosinophils # 0.1 (0-0.7) k/uL Basophils # 0.1 (0-0.2) k/uL Sodium 146 H (137-145) mmol/L Potassium 3.7 (3.5-5.1) mmol/L Chloride 113 H (98-107) mmol/L Carbon Dioxide 19 L (22-30) mmol/L Anion Gap 14 mmol/L BUN 6 L (9-20) mg/dL Creatinine 0.62 L (0.66-1.25) mg/dL Est GFR (CKD-EPI)AfAm >90 (>60 ml/min/1.73 sqM) Est GFR (CKD-EPI)NonAf >90 (>60 ml/min/1.73 sqM) Glucose 76 (74-99) mg/dL POC Glucose (mg/dL) 80 (70-110) mg/dL POC Glu Float Tender ID Yolanda Elizabeth Calcium 9.2 (8.4-10.2) mg/dL Magnesium 2.1 (1.6-2.3) mg/dL Total Bilirubin 0.4 (0.2-1.3) mg/dL AST 28 (17-59) U/L ALT 15 (4-49) U/L Alkaline Phosphatase 90 (38-126) U/L Total Protein 8.1 (6.3-8.2) g/dL Albumin 4.4 (3.5-5.0) g/dL Serum Alcohol 315 H* mg/dL Disposition Clinical Impression: Alcoholic intoxication Disposition: ADMITTED IP TO THIS HOSP Condition: Stable Is patient prescribed a controlled substance at d/c from ED?: No Referrals: None,Stated [Primary Care Provider] - 1-2 days Time of Disposition: 18:39
[2023-12-29 16:02] LABS: Glucose,Whole Blood 80 mg/dL (70-110)
[2023-12-29 16:04] LABS: Basophils # (A) 0.1 k/uL (0-0.2); Basophils % (A) 1 %; Eosinophils # (A) 0.1 k/uL (0-0.7); Eosinophils % (A) 1 %; HCT 40.8 % (39.0-53.0); HGB 13.8 gm/dL (13.0-17.5); Lymphocytes # (A) 2.9 k/uL (1.0-4.8); Lymphocytes % (A) 34 %; MCHC 33.8 g/dL (31.0-37.0); MCV 82.8 fL (80.0-100.0); Mean Platelet Volume 8.8; Monocytes # (A) 0.4 k/uL (0-1.0); Monocytes % (A) 5 %; Neutrophils % (A) 58 %; Platelet Count 256 k/uL (150-450); RBC 4.93 m/uL (4.30-5.90); RDW 15.1 % (11.5-15.5); WBC 8.5 k/uL (3.8-10.6)
[2023-12-29 17:03] LABS: ALT 15 U/L (4-49); AST 28 U/L (17-59); African American GFR (CKD) >90 (>60 ml/min/1.73 sqM); Albumin 4.4 g/dL (3.5-5.0); Alkaline Phosphatase 90 U/L (38-126); Anion Gap 14 mmol/L; Blood Urea Nitrogen 6 mg/dL (9-20); Calcium 9.2 mg/dL (8.4-10.2); Carbon Dioxide 19 mmol/L (22-30); Chloride 113 mmol/L (98-107); Glucose 76 mg/dL (74-99); Magnesium 2.1 mg/dL (1.6-2.3); Non-African American GFR(CKD) >90 (>60 ml/min/1.73 sqM); Potassium 3.7 mmol/L (3.5-5.1); Sodium 146 mmol/L (137-145); Total Bilirubin 0.4 mg/dL (0.2-1.3); Total Protein 8.1 g/dL (6.3-8.2)
[2023-12-29 17:34] LABS: Alcohol 315 mg/dL
[2023-12-29] MEDS ORDERED: NALOXONE 0.4 MG/ML 1 ML VIAL IV PRN (18:36)
[2023-12-29 19:15] LABS: Glucose,Whole Blood 76 mg/dL (70-110)
[2023-12-29] MEDS: SODIUM CHLORIDE 0.9% 1,000 ML IV SCH (19:17)
[2023-12-29] MEDS ORDERED: LORazepam 2 MG/ML INJ IV PRN (19:49)
[2023-12-29] MEDS: LORazepam 2 MG/ML INJ IV PRN (22:18)
[2023-12-29] MEDS: THIAMINE 100 MG/ML 2 ML VIAL IM STA (22:18)
--- NOTE | 2023-12-30 04:09 | P.HPIM ---
History of Present Illness H&P Date: 12/29/23 Chief Complaint: intoxication with ETOH 38-year-old male with schizophrenia bipolar disorder alcohol dependence well- known to our service patient was found intoxicated with alcohol at a local restaurant patient is homeless for which she was brought to the hospital for evaluation Currently denies any fevers chills coughing shortness of breath chest pain nausea vomiting abdominal pain headache changes in vision or hearing. Denies any suicidal ideation. Denies any hallucinations Patient was discharged earlier today for same problem of alcohol intoxication review of systems Pertinent positives as noted in HPI. All other systems were reviewed and are negative on exam Constitutional: No acute distress, Eyes: Anicteric sclerae, moist conjunctiva, Pupils equal round reactive to light ENMT: NC/AT Oropharynx clear, no erythema, or exudates Neck: Supple, no masses, or JVD No carotid bruits No thyromegaly Lungs: Clear to auscultation Clear to percussion Normal respiratory effort, no accessory muscle use Cardiovascular: Heart regular in rate and rhythm, No murmurs, gallops, or rubs No peripheral edema Abdominal: Soft Nontender, no guarding, rebound or rigidity Abdomen moving with respiration Normoactive bowel sounds Extremities: No digital cyanosis No clubbing Pedal pulses intact and symmetrical Radial pulses intact and symmetrical No calf tenderness Psychiatric: Alert and oriented to person, place and time Neuro Muscles Strength 5/5 in all 4 extremities Sensation to light touch grossly present throughout Cranial nerves II-XII grossly intact Past Medical History Past Medical History: GERD/Reflux, Hypertension, Liver Disease, Skin Disorder Additional Past Medical History / Comment(s): Hepatitis C, Pancreatitis, DDD, back pain, bilateral carpel tunnel syndrome. In the past has reported that he has heart disease that was found when he had kidney problems but he denies having a stress test or cardiac catheterization. History of Any Multi-Drug Resistant Organisms: None Reported MDRO Source:: unknown Past Surgical History: No Surgical Hx Reported, Unable to Obtain Additional Past Surgical History / Comment(s): Pt states he has had numerous "cysts" removed from where he injected IV drugs. Past Anesthesia/Blood Transfusion Reactions: No Reported Reaction, Unable to Obtain Additional Past Anesthesia/Blood Transfusion Reaction / Comment(s): In the past pt reported that he has never had surgery Past Psychological History: Anxiety, Bipolar, Depression, Schizophrenia Smoking Status: Current every day smoker Past Alcohol Use History: Abuse Past Drug Use History: Marijuana, Methamphetamine, Opiates - Past Family History Mother Family Medical History: Unable to Obtain, Rheumatoid Arthritis (RA) Additional Family Medical History / Comment(s): Mother is . Father Family Medical History: Coronary Artery Disease (CAD) Medications and Allergies Home Medications Medication Instructions Recorded Confirmed Type Haloperidol Decanoate [Haldol D] 200 mg IM Q14D 1 Days #1 each 10/20/23 12/29/23 Rx QUEtiapine [SEROquel] 25 mg PO BID 30 Days #60 tab 12/11/23 12/29/23 Rx Thiamine [Vitamin B-1] 100 mg PO DAILY 30 Days #30 tab 12/11/23 12/29/23 Rx buPROPion XL [Wellbutrin XL] 150 mg PO DAILY 30 Days #30 tab 12/11/23 12/29/23 Rx busPIRone HCl [Buspar] 7.5 mg PO BID 30 Days #60 tab 12/11/23 12/29/23 Rx Allergies Allergy/AdvReac Type Severity Reaction Status Date / Time flea Allergy Rash/Hives Uncoded 12/29/23 19:27 Physical Exam Vitals: Vital Signs Temp Pulse Pulse Resp BP BP Pulse Ox 12/30/23 01:33 97.9 F 68 16 143/79 98 12/29/23 22:35 60 156/87 12/29/23 22:06 97.5 F L 60 19 220/126 99 12/29/23 19:51 98.2 F 74 18 146/94 95 12/29/23 18:12 138/97 12/29/23 15:12 64 18 156/117 94 L 12/29/23 15:08 98.3 F 71 17 159/106 93 L Intake and Output 12/29/23 12/29/23 12/30/23 14:59 22:59 06:59 Other: Voiding Method Toilet # Voids 1 Weight 81.647 kg Results CBC & Chem 7: 12/29/23 15:53 12/29/23 15:53 Labs: Abnormal Lab Results - Last 24 Hours (Table) 12/29/23 Range/Units 15:53 Sodium 146 H (137-145) mmol/L Chloride 113 H (98-107) mmol/L Carbon Dioxide 19 L (22-30) mmol/L BUN 6 L (9-20) mg/dL Creatinine 0.62 L (0.66-1.25) mg/dL Serum Alcohol 315 H* mg/dL Thrombosis Risk Factor Assmnt - Choose All That Apply Any of the Below Risk Factors Present?: No Other Risk Factors: No Other congenital or acquired thrombophilia - If yes, enter type in comment: No Thrombosis Risk Factor Assessment Level: Very Low Risk Assessment and Plan Assessment: 38-year-old male with bipolar disorder schizophrenia alcohol dependence he is homeless he was found at a local restaurant intoxicated with alcohol was brought to the hospital for evaluation I discussed case with ED doctor and accepted the admission for acute alcohol intoxication with anticipated length of stay less than 2 midnights Acute severe alcohol intoxication with alcohol dependence IV fluid hydration with normal saline with 30 cc/h Seizure precautions Fall precautions Benzos per CIWA Monitor for alcohol withdrawal Thiamine daily Patient counseled to quit alcohol Blood work showing white count 8.5 hemoglobin 13.8 Sodium 146 potassium 3.7 BUN 6 creatinine 0.6 Liver enzymes unremarkable Alcohol level was 315 Full code DVT prophylaxis mechanical
[2023-12-30] MEDS: SODIUM CHLORIDE 0.9% 1,000 ML IV SCH (06:56)
[2023-12-30] MEDS: LORazepam 2 MG/ML INJ IV PRN (08:18)
[2023-12-30] MEDS: THIAMINE 100 MG TAB PO SCH (08:26)
[2023-12-30] MEDS ORDERED: DEXTROSE 50% SYRINGE 50 ML IVP PRN ×2 (08:58)
[2023-12-30] MEDS: FOLIC ACID 1 MG TAB PO SCH (09:45)
[2023-12-30] MEDS: MULTIVITAMINS, THERA 1 EACH TAB PO SCH (09:45)
[2023-12-30] MEDS: busPIRone HCl 5 MG TAB PO SCH (09:45)
[2023-12-30] MEDS: QUEtiapine 25 MG TAB PO SCH (10:31)
[2023-12-30] MEDS: buPROPion XL 150 MG TAB.ER.24H PO SCH (10:31)
[2023-12-30] MEDS: HEPARIN SODIUM,PORCINE 5,000 UNIT/ML 1 ML VIAL SQ SCH (10:31)
--- NOTE | 2023-12-30 11:08 | P.DS ---
Providers Date of admission: 12/29/23 18:36 Expected date of discharge: 12/30/23 Attending physician: Pb David MD Primary care physician: Stated None Hospital Course: Discharge Diagnosis: Alcohol withdraw. Acute alcohol intoxication in active alcoholic upon admission Hypernatremia and hyperchloremia Polysubstance abuse Schizoaffective disorder Bipolar disorder. Continue daily home medication regimen with Wellbutrin 150 mg daily, BuSpar 7.5 mg twice daily, Seroquel 25 mg twice daily, and haloperidol decanoate injections 200 mg IM q. 14 days via [facility]. Hospital Course: Patient is a 38-year-old male with a past medical history of alcoholism, polysubstance abuse, and schizoaffective disorder. He is well-known to our services secondary to multiple recurrent admissions for alcohol/substance abuse and mental health disorders and recently discharged from hospital on 12/29/2023 at 1:10 PM and returned to the hospital approximately 4 hours later on 12/29/2023 at 3:08 PM again for acute alcohol intoxication. Per documentation in chart, patient was picked up for public intoxication at a local restaurant and brought to hospital for detox as he is homeless. He underwent full evaluation in the emergency department. Vital signs upon arrival. Vital signs were completed and reviewed. Blood pressure 159/106, heart rate 71, respiratory rate 17, temp 98.3 degrees axillary, and SpO2 of 93% on room air. Labs completed and reviewed. CBC unremarkable. BMP showing mild hyponatremia with sodium of 146 and hyperchloremia with chloride of 113. Liver profile unremarkable. Serum alcohol level was elevated at 315. Patient was admitted under our services provided with IV fluid hydration with 0.9% NS and was placed on CIWA protocol for alcohol withdrawal. Patient again hospitalized overnight and is demanding discharge this morning. He is A&Ox4 and denies any suicidal or homicidal ideations, denies any hallucinations, and denies feeling anxious or depressed at this time. Talked with patient about the importance of alcohol cessation and possibility of rehab. Patient states "I know I know I am going to stop drinking, but I have things to do today". Patient adamantly declines assistance for rehab or any other facilities at this time persistent on discharge and states he knows what he is doing and follows with [facility]. RN notifying patient's public legal guardian of plans of discharge at this time. Physical exam: Vital signs reviewed and stable. General: Nontoxic, no distress and appears stated age. Derm: Skin warm and dry, normal coloration for ethnicity. Head: Atraumatic, normocephalic and symmetric. Eyes: EOMs intact, no lid lag, and anicteric sclera Mouth: no lip lesions, mucus membranes moist Cardiovascular: regular rate and rhythm with normal S1S2, no murmur, positive posterior tibial pulses bilaterally, and cap refill < 2 seconds. Lungs: Respirations even, regular, and unlabored on room air. Lungs CTA bilaterally, no rhonchi, no rales, no wheezing, and no accessory muscle usage. Abdominal: soft, nontender to palpation, no guarding, no appreciable organomegaly Ext: ROM intact. No gross muscle atrophy, no edema, no contractures Neuro: Speech clear, face symmetrical and CN II-XII grossly intact with no noted focal neuro deficits Psych: Alert and oriented to person, place, time, and situation. Appropriate and pleasant affect. A total of 29 minutes of time were spent preparing this complex discharge summary. Pt was discharged on 12/30/2023 at 11:01 AM. Patient was seen independently by Nurse Practitioner. This document was prepared using [employer] dictation software. Please allow for errors in music historian while rare they do occur. I reviewed the documentation as provided by the ENOCH above, who is the original author of this note. I agree with the documented assessment and plan, with the following changes: none Patient Condition at Discharge: Stable Plan - Discharge Summary New Discharge Prescriptions: Continue Thiamine [Vitamin B-1] 100 mg PO DAILY 30 Days #30 tab Haloperidol Decanoate [Haldol D] 200 mg IM Q14D 1 Days #1 each busPIRone HCl [Buspar] 7.5 mg PO BID 30 Days #60 tab QUEtiapine [SEROquel] 25 mg PO BID 30 Days #60 tab buPROPion XL [Wellbutrin XL] 150 mg PO DAILY 30 Days #30 tab Discharge Medication List Haloperidol Decanoate [Haldol D] 200 mg IM Q14D 1 Days #1 each 10/20/23 [Rx] QUEtiapine [SEROquel] 25 mg PO BID 30 Days #60 tab 12/11/23 [Rx] Thiamine [Vitamin B-1] 100 mg PO DAILY 30 Days #30 tab 12/11/23 [Rx] buPROPion XL [Wellbutrin XL] 150 mg PO DAILY 30 Days #30 tab 12/11/23 [Rx] busPIRone HCl [Buspar] 7.5 mg PO BID 30 Days #60 tab 12/11/23 [Rx] Follow up Appointment(s)/Referral(s): None,Stated [Primary Care Provider] - 1-2 days Patient Instructions/Handouts: Abuse of Alcohol (DC), Alcohol Use Disorder (DC) Activity/Diet/Wound Care/Special Instructions: Activity: As tolerated. Take breaks as needed. Diet: Heart healthy and carb consistent diet. Avoid salts, or foods with hidden salts such as canned or boxed foods and frozen dinners. Extra salt makes your heart work harder and traps the fluid in your body for longer. Special Instructions: As discussed with you on multiple occasions, it is highly recommended that you attend an inpatient drug and alcohol rehabilitation facility. Continued alcohol abuse will only lead to further detrimental health conditions including cirrhosis and/or . Strongly recommend avoiding any and all alcohol use Thank you for allowing us to participate in your care, it was truly a pleasure having you for our patient!!! Discharge/Stand Alone Forms: AA Meetings [facility] - [facility], AA Meetings [place], [place] [facility], [facility], Who Do I Call?, Adult [facility] List, Community Resources, Outpatient Counseling, Inp Substance Abuse Facilities Discharge Disposition: HOME SELF-CARE
[2023-12-30 15:16] VITALS: BP 175/90; PULSE 83; RESP 16; TEMP 98
== END 2023-12-30 11:20 | disposition home or self-care (01) ==
LOC: EC 15:03 → 4SSUR 18:36 → 6NMEDSUR 18:47
PROVIDERS: ADMIT Internal Medicine; ATTEND Internal Medicine
DX: T51.0X1A Toxic effect of ethanol, accidental (unintentional), initial encounter (principal); F10.229 Alcohol dependence with intoxication, unspecified; F10.239 Alcohol dependence with withdrawal, unspecified; E87.0 Hyperosmolality and hypernatremia; Y90.8 Blood alcohol level of 240 mg/100 ml or more; E87.8 Other disorders of electrolyte and fluid balance, not elsewhere classified; F19.10 Other psychoactive substance abuse, uncomplicated; F25.9 Schizoaffective disorder, unspecified; F31.9 Bipolar disorder, unspecified; F41.9 Anxiety disorder, unspecified; F17.200 Nicotine dependence, unspecified, uncomplicated; Z79.899 Other long term (current) drug therapy; Z91.038 Other insect allergy status; Z59.00 Homelessness unspecified; Z71.41 Alcohol abuse counseling and surveillance of alcoholic
CPT/HCPCS: 96376; 96361 ×3; 96372; 96374; 99285; 36415; 80053; 83735; 85025; G0378 ×2; G0480; J2060 ×2; J3411; 80320

== ENCOUNTER 2023-12-31 14:54 | Emergency (ER) | payer OTHER ==
--- NOTE | 2023-12-31 15:11 | ED ---
Recheck HPI - General Chief Complaint: Alcohol Stated Complaint: ETOH Time Seen by Provider: 12/31/23 14:58 Source: EMS, RN notes reviewed, old records reviewed Mode of arrival: EMS Limitations: no limitations - History of Present Illness Initial Comments: This is a 38-year-old male who presents to the ER today for evaluation regarding altered mental status. Patient is here for evaluation in regards to altered mental status, patient was found sleeping outside [facility] facility where PD was called and then EMS was called. Patient was brought to our facility as he is well-known here and he is personally without complaint MD Complaint: abnormal lab (Likely elevated alcohol), other (Patient was just discharged from our facility) -: unknown Returns Today for: other (Alcohol intoxication and altered mental status) Symptoms Since Prior Visit: no new symptoms Context: called for abnormal lab result Associated Symptoms: none Treatments Prior to Arrival: other (0) - Related Data Previous Rx's Medication Instructions Recorded Haloperidol Decanoate [Haldol D] 200 mg IM Q14D 1 Days #1 each 10/20/23 QUEtiapine [SEROquel] 25 mg PO BID 30 Days #60 tab 12/11/23 Thiamine [Vitamin B-1] 100 mg PO DAILY 30 Days #30 tab 12/11/23 buPROPion XL [Wellbutrin XL] 150 mg PO DAILY 30 Days #30 tab 12/11/23 busPIRone HCl [Buspar] 7.5 mg PO BID 30 Days #60 tab 12/11/23 Allergies Allergy/AdvReac Type Severity Reaction Status Date / Time flea Allergy Rash/Hives Uncoded 01/04/24 13:20 Review of Systems ROS Statement: Those systems with pertinent positive or pertinent negative responses have been documented in the HPI. ROS Other: All systems not noted in ROS Statement are negative. Past Medical History Past Medical History: GERD/Reflux, Hypertension, Liver Disease, Skin Disorder Additional Past Medical History / Comment(s): Hepatitis C, Pancreatitis, DDD, back pain, bilateral carpel tunnel syndrome. In the past has reported that he has heart disease that was found when he had kidney problems but he denies having a stress test or cardiac catheterization. History of Any Multi-Drug Resistant Organisms: None Reported MDRO Source:: unknown Past Surgical History: No Surgical Hx Reported, Unable to Obtain Additional Past Surgical History / Comment(s): Pt states he has had numerous "cysts" removed from where he injected IV drugs. Past Anesthesia/Blood Transfusion Reactions: No Reported Reaction, Unable to Obtain Additional Past Anesthesia/Blood Transfusion Reaction / Comment(s): In the past pt reported that he has never had surgery Past Psychological History: Anxiety, Bipolar, Depression, Schizophrenia Smoking Status: Current every day smoker Past Alcohol Use History: Abuse Past Drug Use History: Marijuana, Methamphetamine, Opiates - Past Family History Mother Family Medical History: Unable to Obtain, Rheumatoid Arthritis (RA) Additional Family Medical History / Comment(s): Mother is . Father Family Medical History: Coronary Artery Disease (CAD) General Exam Limitations: no limitations General appearance: alert, in no apparent distress Head exam: Present: atraumatic, normocephalic, normal inspection Eye exam: Present: normal appearance, PERRL, EOMI. Absent: scleral icterus, conjunctival injection, periorbital swelling ENT exam: Present: normal exam, mucous membranes moist Neck exam: Present: normal inspection. Absent: tenderness, meningismus, lymphadenopathy Respiratory exam: Present: normal lung sounds bilaterally. Absent: respiratory distress, wheezes, rales, rhonchi, stridor Cardiovascular Exam: Present: regular rate, normal rhythm, normal heart sounds. Absent: systolic murmur, diastolic murmur, rubs, gallop, clicks GI/Abdominal exam: Present: soft, normal bowel sounds. Absent: distended, tenderness, guarding, rebound, rigid Extremities exam: Present: normal inspection, full ROM, normal capillary refill. Absent: tenderness, pedal edema, joint swelling, calf tenderness Back exam: Present: normal inspection Neurological exam: Present: alert, oriented X3, CN II-XII intact Psychiatric exam: Present: normal affect, normal mood Skin exam: Present: warm, dry, intact, normal color. Absent: rash Course Vital Signs 12/31/23 12/31/23 15:05 17:02 Temperature 97.6 F 98.0 F Pulse Rate 88 92 Respiratory 18 20 Rate Blood Pressure 153/104 159/98 O2 Sat by Pulse 97 98 Oximetry - Reevaluation(s) Reevaluation #1: 12/31/23 16:32 Medical records reviewed Reevaluation #2: 12/31/23 16:32 Patient symptoms unchanged 12/31/23 16:32 Patient is awake and alert able to answer questions here in the ER Reevaluation #3: 12/31/23 16:32 Patient informed of results and questions answered Reevaluation #4: Was pt. sent in by a medical professional or institution ([facility], [facility], urgent care, hospital, or senior living...) When possible be specific @ -no Did you speak to anyone other than the patient for history (EMS, parent, family, police, friend...)? What history was obtained from this source @ -no Did you review nursing and triage notes (agree or disagree)? Why? @ -agree Are old charts reviewed (outside hosp., previous admission, EMS record, old EKG, old radiological studies, urgent care reports/EKG's, senior living records)? Report findings @ -yes Differential Diagnosis (chest pain, altered mental status, abdominal pain women, abdominal pain men, vaginal bleeding, weakness, fever, dyspnea, syncope, headache, dizziness, GI bleed, back pain, seizure, CVA, palpatations, mental health, musculoskeletal)? @ -prior EKG interpreted by me (3pts min.). @ -no X-rays interpreted by me (1pt min.). @ -no CT interpreted by me (1pt min.). @ -no U/S interpreted by me (1pt. min.). @ -no What testing was considered but not performed or refused? (CT, X-rays, U/S, labs)? Why? @ -none What meds were considered but not given or refused? Why? @ -none Did you discuss the management of the patient with other professionals (professionals i.e. [facility], [facility], lab, RT, psych nurse, social services manager, calculation reviewer, t eacher, foreign policy officer, rehabilitation caseworker)? Give summary @ -no Was smoking cessation discussed for >3mins.? @ -no Was critical care preformed (if so, how long)? @ -no Were there social determinants of health that impacted care today? How? (Homelessness, low income, unemployed, alcoholism, drug addiction, transportation, low edu. Level, literacy, decrease access to med. care, half-way, rehab)? @ -none Was there de-escalation of care discussed even if they declined (Discuss DNR or withdrawal of care, Hospice)? DNR status @ -no What co-morbidities impacted this encounter? (DM, HTN, Smoking, COPD, CAD, Cancer, CVA, ARF, Chemo, Hep., AIDS, mental health diagnosis, sleep apnea, morbid obesity)? @ -none Was patient admitted / discharged? Hospital course, mention meds given and route, prescriptions, significant lab abnormalities, going to OR and other pertinent info. @ - 38 male to ER known for recurrent visits due to alcohol intoxication assumed polysubstance abuse and altered mental status. Patient is able to answer questions and alert here in the ER, he will be discharged home, patient is known to currently be homeless Discharge Undiagnosed new problem with uncertain prognosis? @ -no Drug Therapy requiring intensive monitoring for toxicity (Heparin, Nitro, Insulin, Cardizem)? @ -no Were any procedures done? @ -no Diagnosis/symptom? @ -Alcohol intoxication and altered mental status Acute, or Chronic, or Acute on Chronic? @ -Acute Uncomplicated (without systemic symptoms) or Complicated (systemic symptoms)? @ -Complicated Side effects of treatment? @ -no Exacerbation, Progression, or Severe Exacerbation? @ -exacerbation Poses a threat to life or bodily function? How? (Chest pain, [place], [place], pneumonia, PE, COPD, DKA, ARF, appy, cholecystitis, CVA, Diverticulitis, Homicidal, Suicidal, threat to staff... and all critical care pts) @ -yes severe alcoholism Reevaluation #5: Differential Altered Mental Status: Hypoglycemia, DKA, hypercapnia, ETOH, overdose, CO poisoning, trauma, myxedema coma, HTN encephalopathy, infection, encephalitis, psychosis, intercranial hemorrhage, hepatic encephalopathy, meningitis, CVA, this is not meant to be an all-inclusive list Medical Decision Making - Medical Decision Making 38 male to ER known for recurrent visits due to alcohol intoxication assumed polysubstance abuse and altered mental status. Patient is able to answer questions and alert here in the ER, he will be discharged home, patient is known to currently be homeless - Lab Data Result diagrams: 12/31/23 15:16 12/31/23 15:16 Lab Results 12/31/23 12/31/23 12/31/23 Range/Units 15:16 15:16 15:16 WBC 8.9 (3.8-10.6) k/uL RBC 4.86 (4.30-5.90) m/uL Hgb 13.7 (13.0-17.5) gm/dL Hct 40.5 (39.0-53.0) % MCV 83.3 (80.0-100.0) fL MCH 28.2 (25.0-35.0) pg MCHC 33.8 (31.0-37.0) g/dL RDW 15.2 (11.5-15.5) % Plt Count 221 (150-450) k/uL MPV 8.1 Neutrophils % 66 % Lymphocytes % 26 % Monocytes % 4 % Eosinophils % 1 % Basophils % 1 % Neutrophils # 5.9 (1.3-7.7) k/uL Lymphocytes # 2.4 (1.0-4.8) k/uL Monocytes # 0.4 (0-1.0) k/uL Eosinophils # 0.1 (0-0.7) k/uL Basophils # 0.1 (0-0.2) k/uL Sodium 147 H (137-145) mmol/L Potassium 3.4 L (3.5-5.1) mmol/L Chloride 114 H (98-107) mmol/L Carbon Dioxide 23 (22-30) mmol/L Anion Gap 10 mmol/L BUN 8 L (9-20) mg/dL Creatinine 0.61 L (0.66-1.25) mg/dL Est GFR (CKD-EPI)AfAm >90 (>60 ml/min/1.73 sqM) Est GFR (CKD-EPI)NonAf >90 (>60 ml/min/1.73 sqM) Glucose 89 (74-99) mg/dL Calcium 9.7 (8.4-10.2) mg/dL Phosphorus 3.5 (2.5-4.5) mg/dL Magnesium 1.9 (1.6-2.3) mg/dL Total Bilirubin 0.3 (0.2-1.3) mg/dL AST 25 (17-59) U/L ALT 13 (4-49) U/L Alkaline Phosphatase 75 (38-126) U/L Total Protein 7.5 (6.3-8.2) g/dL Albumin 4.1 (3.5-5.0) g/dL Lipase 122 (23-300) U/L Urine Color Colorless Urine Appearance Clear (Clear) Urine pH 6.5 (5.0-8.0) Ur Specific [place] 1.001 (1.001-1.035) Urine Protein Negative (Negative) Urine Glucose (UA) Negative (Negative) Urine Ketones Negative (Negative) Urine Blood Negative (Negative) Urine Nitrite Negative (Negative) Urine Bilirubin Negative (Negative) Urine Urobilinogen <2.0 (<2.0) mg/dL Ur Leukocyte Esterase Negative (Negative) Urine Opiates Screen Not Detected (NotDetected) Ur Oxycodone Screen Not Detected (NotDetected) Urine Methadone Screen Not Detected (NotDetected) Ur Barbiturates Screen Not Detected (NotDetected) U Tricyclic Antidepress Not Detected (NotDetected) Ur Phencyclidine Scrn Not Detected (NotDetected) Ur Amphetamines Screen Not Detected (NotDetected) U Methamphetamines Scrn Not Detected (NotDetected) U Benzodiazepines Scrn Not Detected (NotDetected) Urine Cocaine Screen Not Detected (NotDetected) U Marijuana (THC) Screen Detected H (NotDetected) Serum Alcohol 250 H* mg/dL Disposition Clinical Impression: Paranoia (psychosis), Alcohol use disorder, Alcoholic intoxication Disposition: HOME SELF-CARE Condition: Fair Instructions (If sedation given, give patient instructions): Alcohol Intoxication (ED) Is patient prescribed a controlled substance at d/c from ED?: No Referrals: None,Stated [Primary Care Provider] - 1-2 days Time of Disposition: 17:00
[2023-12-31] MEDS: SODIUM CHLORIDE 0.9% 500 ML 500 ML IV STA (15:37)
[2023-12-31] MEDS: SODIUM CHLORIDE 0.9% 1,000 ML IV STA (15:37)
[2023-12-31 15:49] LABS: Appearance,Urine Clear (Clear); Bilirubin,Urine Negative (Negative); Blood,Urine Negative (Negative); Color,Urine Colorless; Glucose,Urine (UA) Negative (Negative); Ketones,Urine Negative (Negative); Leukocyte Esterase,Urine Negative (Negative); Nitrite,Urine Negative (Negative); PH, Urine 6.5 (5.0-8.0); Protein,Urine Negative (Negative); Specific Gravity,Urine 1.001 (1.001-1.035); Urobilinogen,Urine <2.0 mg/dL (<2.0)
[2023-12-31 15:56] LABS: Amphetamine Screen,Urine Not Detected (NotDetected); Barbiturate Screen,Urine Not Detected (NotDetected); Benzodiazepines Screen,Urine Not Detected (NotDetected); Cocaine Screen,Urine Not Detected (NotDetected); Methadone Screen, Urine Not Detected (NotDetected); Opiate Screen,Urine Not Detected (NotDetected); Oxycodone Screen, Urine Not Detected (NotDetected); Phencyclidine Screen,Urine Not Detected (NotDetected); Tricyclic Antidepressant,Urine Not Detected (NotDetected); Urn Cannabinoid Scrn Detected (NotDetected)
[2023-12-31 15:58] LABS: ALT 13 U/L (4-49); AST 25 U/L (17-59); African American GFR (CKD) >90 (>60 ml/min/1.73 sqM); Albumin 4.1 g/dL (3.5-5.0); Alkaline Phosphatase 75 U/L (38-126); Anion Gap 10 mmol/L; Basophils # (A) 0.1 k/uL (0-0.2); Basophils % (A) 1 %; Blood Urea Nitrogen 8 mg/dL (9-20); Calcium 9.7 mg/dL (8.4-10.2); Carbon Dioxide 23 mmol/L (22-30); Chloride 114 mmol/L (98-107); Eosinophils # (A) 0.1 k/uL (0-0.7); Eosinophils % (A) 1 %; Glucose 89 mg/dL (74-99); HCT 40.5 % (39.0-53.0); HGB 13.7 gm/dL (13.0-17.5); Lipase 122 U/L (23-300); Lymphocytes # (A) 2.4 k/uL (1.0-4.8); Lymphocytes % (A) 26 %; MCH 28.2 pg (25.0-35.0); MCHC 33.8 g/dL (31.0-37.0); MCV 83.3 fL (80.0-100.0); Magnesium 1.9 mg/dL (1.6-2.3); Mean Platelet Volume 8.1; Monocytes # (A) 0.4 k/uL (0-1.0); Monocytes % (A) 4 %; Neutrophils # (A) 5.9 k/uL (1.3-7.7); Neutrophils % (A) 66 %; Non-African American GFR(CKD) >90 (>60 ml/min/1.73 sqM); Phosphorus 3.5 mg/dL (2.5-4.5); Platelet Count 221 k/uL (150-450); Potassium 3.4 mmol/L (3.5-5.1); RBC 4.86 m/uL (4.30-5.90); RDW 15.2 % (11.5-15.5); Sodium 147 mmol/L (137-145); Total Bilirubin 0.3 mg/dL (0.2-1.3); Total Protein 7.5 g/dL (6.3-8.2); WBC 8.9 k/uL (3.8-10.6)
[2023-12-31 16:01] LABS: Alcohol 250 mg/dL
[2023-12-31] MEDS: LORazepam 1 MG TAB PO STA (16:13)
[2023-12-31 17:17] VITALS: BP 159/98; PULSE 92; RESP 20; TEMP 98
== END 2023-12-31 17:04 | disposition home or self-care (01) ==
LOC: EC 14:54
DX: F22 Delusional disorders (principal); F10.129 Alcohol abuse with intoxication, unspecified; R41.82 Altered mental status, unspecified; I10 Essential (primary) hypertension; F17.200 Nicotine dependence, unspecified, uncomplicated; F12.90 Cannabis use, unspecified, uncomplicated; F11.90 Opioid use, unspecified, uncomplicated; F15.90 Other stimulant use, unspecified, uncomplicated; Z59.00 Homelessness unspecified; Z91.09 Other allergy status, other than to drugs and biological substances; Y90.8 Blood alcohol level of 240 mg/100 ml or more
CPT/HCPCS: 99285; 96360; 36415; 80053; 83690; 83735; 84100; 85025; 81003; 80306; G0480; 80320

== ENCOUNTER 2023-12-31 19:52 | Observation (INO) | payer OTHER ==
[2023-12-31] MEDS ORDERED: NALOXONE 0.4 MG/ML 1 ML VIAL IV PRN (20:14)
[2023-12-31] MEDS ORDERED: ONDANSETRON 4 MG/2 ML VIAL IVP PRN (20:14)
[2023-12-31] MEDS ORDERED: LORazepam 2 MG/ML INJ IV PRN ×2 (20:14)
--- NOTE | 2023-12-31 20:22 | ED ---
Fall HPI - General Chief Complaint: Fall Stated Complaint: ETOH, Fall Time Seen by Provider: 12/31/23 19:52 Source: patient, EMS, RN notes reviewed, old records reviewed Mode of arrival: EMS - History of Present Illness Initial Comments: This is a 38-year-old male to the ER for evaluation. Patient presented for evaluation regards to fall patient had a fall with severe alcohol intoxication. 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 Fall Witnessed: yes, by family Place Fall Occurred: home Loss of Consciousness: none Prolonged Down Time?: no Symptoms Prior to Fall: none Location: face Severity: mild Quality: sharp Context: tripped/slipped, alcohol use Associated Symptoms: denies - Related Data Previous Rx's Medication Instructions Recorded Haloperidol Decanoate [Haldol D] 200 mg IM Q14D 1 Days #1 each 10/20/23 QUEtiapine [SEROquel] 25 mg PO BID 30 Days #60 tab 12/11/23 Thiamine [Vitamin B-1] 100 mg PO DAILY 30 Days #30 tab 12/11/23 buPROPion XL [Wellbutrin XL] 150 mg PO DAILY 30 Days #30 tab 12/11/23 busPIRone HCl [Buspar] 7.5 mg PO BID 30 Days #60 tab 12/11/23 Allergies Allergy/AdvReac Type Severity Reaction Status Date / Time flea Allergy Rash/Hives Uncoded 12/31/23 16:17 Review of Systems ROS Statement: Those systems with pertinent positive or pertinent negative responses have been documented in the HPI. ROS Other: All systems not noted in ROS Statement are negative. Past Medical History Past Medical History: GERD/Reflux, Hypertension, Liver Disease, Skin Disorder Additional Past Medical History / Comment(s): Hepatitis C, Pancreatitis, DDD, back pain, bilateral carpel tunnel syndrome. In the past has reported that he has heart disease that was found when he had kidney problems but he denies having a stress test or cardiac catheterization. History of Any Multi-Drug Resistant Organisms: None Reported MDRO Source:: unknown Past Surgical History: No Surgical Hx Reported, Unable to Obtain Additional Past Surgical History / Comment(s): Pt states he has had numerous "cysts" removed from where he injected IV drugs. Past Anesthesia/Blood Transfusion Reactions: No Reported Reaction, Unable to Obtain Additional Past Anesthesia/Blood Transfusion Reaction / Comment(s): In the past pt reported that he has never had surgery Past Psychological History: Anxiety, Bipolar, Depression, Schizophrenia Smoking Status: Current every day smoker Past Alcohol Use History: Abuse Past Drug Use History: Marijuana, Methamphetamine, Opiates - Past Family History Mother Family Medical History: Unable to Obtain, Rheumatoid Arthritis (RA) Additional Family Medical History / Comment(s): Mother is . Father Family Medical History: Coronary Artery Disease (CAD) General Exam Limitations: no limitations General appearance: alert, in no apparent distress Head exam: Present: atraumatic, normocephalic, normal inspection Eye exam: Present: normal appearance, PERRL, EOMI. Absent: scleral icterus, conjunctival injection, periorbital swelling ENT exam: Present: normal exam, mucous membranes moist Neck exam: Present: normal inspection. Absent: tenderness, meningismus, lymphadenopathy Respiratory exam: Present: normal lung sounds bilaterally. Absent: respiratory distress, wheezes, rales, rhonchi, stridor Cardiovascular Exam: Present: regular rate, normal rhythm, normal heart sounds. Absent: systolic murmur, diastolic murmur, rubs, gallop, clicks GI/Abdominal exam: Present: soft, normal bowel sounds. Absent: distended, tenderness, guarding, rebound, rigid Extremities exam: Present: normal inspection, full ROM, normal capillary refill. Absent: tenderness, pedal edema, joint swelling, calf tenderness Back exam: Present: normal inspection Neurological exam: Present: alert, oriented X3, CN II-XII intact Psychiatric exam: Present: normal affect, normal mood Skin exam: Present: warm, dry, intact, normal color. Absent: rash Course Vital Signs 12/31/23 19:57 Temperature 97.4 F L Pulse Rate 75 Respiratory 20 Rate Blood Pressure 160/117 O2 Sat by Pulse 96 Oximetry - Reevaluation(s) Reevaluation #1: 12/31/23 20:20 Medical record is reviewed Reevaluation #2: 12/31/23 20:20 Patient still remains significant intoxicated here in the ER Reevaluation #3: 12/31/23 20:20 Patient informed of results and questions answered Patient states he is having significant depression and does not want to live anymore Reevaluation #4: Was pt. sent in by a medical professional or institution (, LANE, TRACTOR OPERATOR HELPER, urgent care, hospital, or half-way...) When possible be specific @ -no Did you speak to anyone other than the patient for history (EMS, parent, family, police, friend...)? What history was obtained from this source @ -no Did you review nursing and triage notes (agree or disagree)? Why? @ -agree Are old charts reviewed (outside hosp., previous admission, EMS record, old EKG, old radiological studies, urgent care reports/EKG's, half-way records)? Report findings @ -yes Differential Diagnosis (chest pain, altered mental status, abdominal pain women, abdominal pain men, vaginal bleeding, weakness, fever, dyspnea, syncope, headache, dizziness, GI bleed, back pain, seizure, CVA, palpatations, mental health, musculoskeletal)? @ -prior EKG interpreted by me (3pts min.). @ -yes X-rays interpreted by me (1pt min.). @ -yes negative for acute disease CT interpreted by me (1pt min.). @ -no U/S interpreted by me (1pt. min.). @ -no What testing was considered but not performed or refused? (CT, X-rays, U/S, labs)? Why? @ -none What meds were considered but not given or refused? Why? @ -none Did you discuss the management of the patient with other professionals (professionals i.e. , LANE, TRACTOR OPERATOR HELPER, lab, RT, psych nurse, social work professor, boiler water tester, teacher, fundraising officer, ed case manager)? Give summary @ -no Was smoking cessation discussed for >3mins.? @ -no Was critical care preformed (if so, how long)? @ -no Were there social determinants of health that impacted care today? How? (Homelessness, low income, unemployed, alcoholism, drug addiction, transportation, low edu. Level, literacy, decrease access to med. care, correction, rehab)? @ -none Was there de-escalation of care discussed even if they declined (Discuss DNR or withdrawal of care, Hospice)? DNR status @ -no What co-morbidities impacted this encounter? (DM, HTN, Smoking, COPD, CAD, Cancer, CVA, ARF, Chemo, Hep., AIDS, mental health diagnosis, sleep apnea, morbid obesity)? @ -none Was patient admitted / discharged? Hospital course, mention meds given and route, prescriptions, significant lab abnormalities, going to OR and other pertinent info. @ - Undiagnosed new problem with uncertain prognosis? @ -no Drug Therapy requiring intensive monitoring for toxicity (Heparin, Nitro, Insulin, Cardizem)? @ -no Were any procedures done? @ -no Diagnosis/symptom? @ - Acute, or Chronic, or Acute on Chronic? @ -Acute Uncomplicated (without systemic symptoms) or Complicated (systemic symptoms)? @ -Complicated Side effects of treatment? @ -no Exacerbation, Progression, or Severe Exacerbation? @ -exacerbation Poses a threat to life or bodily function? How? (Chest pain, USA, SC, pneumonia, PE, COPD, DKA, ARF, appy, cholecystitis, CVA, Diverticulitis, Homicidal, Suicidal, threat to staff... and all critical care pts) @ -yes Reevaluation #5: Differential Altered Mental Status: Hypoglycemia, DKA, hypercapnia, ETOH, overdose, CO poisoning, trauma, myxedema coma, HTN encephalopathy, infection, encephalitis, psychosis, intercranial hemorrhage, hepatic encephalopathy, meningitis, CVA, this is not meant to be an all-inclusive list Medical Decision Making - Medical Decision Making 38 male to ER with severe alcohol intoxication and a fall. Fall with alcohol intoxication. Patient will be admitted for persistent and recurrent alcohol intoxication and altered mental status - Radiology Data Radiology results: report reviewed (CT brain C-spine and facial bones is negative for traumatic injury), image reviewed Disposition Clinical Impression: Fall, Alcohol use disorder, severe, dependence, Alcohol abuse, Drug overdose Disposition: ADMITTED IP TO THIS HOSP Condition: Fair Is patient prescribed a controlled substance at d/c from ED?: No Referrals: None,Stated [Primary Care Provider] - 1-2 days Time of Disposition: 21:00
[2023-12-31 20:53] LABS: Basophils # (A) 0.1 k/uL (0-0.2); Basophils % (A) 1 %; Eosinophils # (A) 0.2 k/uL (0-0.7); Eosinophils % (A) 2 %; HCT 38.5 % (39.0-53.0); HGB 12.8 gm/dL (13.0-17.5); Lymphocytes # (A) 2.7 k/uL (1.0-4.8); Lymphocytes % (A) 34 %; MCH 27.7 pg (25.0-35.0); MCHC 33.4 g/dL (31.0-37.0); Mean Platelet Volume 8.1; Monocytes # (A) 0.3 k/uL (0-1.0); Monocytes % (A) 4 %; Neutrophils # (A) 4.4 k/uL (1.3-7.7); Neutrophils % (A) 57 %; Platelet Count 220 k/uL (150-450); RBC 4.64 m/uL (4.30-5.90); RDW 15.6 % (11.5-15.5); WBC 7.7 k/uL (3.8-10.6)
[2023-12-31] MEDS: SODIUM CHLORIDE 0.9% 1,000 ML IV STA ×2 (20:53→22:22)
[2023-12-31] MEDS: SODIUM CHLORIDE 0.9% 500 ML 500 ML IV STA (20:53)
[2023-12-31] MEDS: THIAMINE 100 MG/ML 2 ML VIAL IM STA (20:54)
--- NOTE | 2023-12-31 20:59 | CT ---
EXAMINATION TYPE: CT brain cspine wo con CT DLP: 1151.7 mGycm, Automated exposure control for dose reduction was used. DATE OF EXAM: 12/31/2023 8:40 PM COMPARISON: CT head cervical spine 12/27/2023 CLINICAL INDICATION:Male, 38 years old with history of fall; fall. no contrast. TECHNIQUE: Brain: Multiple axial CT images of the brain were obtained without IV contrast. Cspine: Axial CT images from the skull base to the inferior aspect of T2 we obtained without intraven ous contrast. Coronal and sagittal reformatted images were also reviewed. FINDINGS: Brain: Extra-axial spaces: No abnormal extra-axial fluid collections. Ventricular system: Within normal limits. Cerebral parenchyma: No increased attenuation to suggest acute intraparenchymal hemorrhage. The gra y-white matter interface appears maintained. No significant atrophy. White matter unremarkable by C T. Cerebellum: No acute abnormality. Mass effect: No evidence of mass effect or midline shift. Intracranial vasculature: Unremarkable Soft tissues: Normal. Visualized orbits: Orbital contents appear grossly intact. Calvarium/osseous structures: No evidence of calvarial fracture. Paranasal sinuses and mastoid air cells: Near complete opacification of the maxillary sinuses by lobu lar mucosal thickening. Scattered mucosal thickening throughout the bilateral ethmoid air cells and m ild thickening of the sphenoid and frontal sinuses. Mastoid air cells are clear. Moderate nasal septa l deviation towards the right. MRI is more sensitive for detecting acute processes such as infarct, and may be considered if clinica lly warranted. Cervical spine: Fracture: None seen. Osseous structures, spinal canal/neural foramina: Osseous structures appear unremarkable. No signific ant bony canal or neural foraminal stenoses. Vertebral alignment: No traumatic malalignment. Preserved normal cervical lordosis. Neck soft tissues: No acute finding.. Other: Lung apices show no acute infiltrate or pneumothorax. IMPRESSION: CT head: No acute intracranial CT abnormality. Multi paranasal sinus mucosal thickening. CT cervical spine: No evidence of acute cervical spine fracture or traumatic malalignment.
--- NOTE | 2023-12-31 21:02 | CT ---
EXAMINATION TYPE: CT facial bones wo con CT DLP: 1151.7 mGycm, Automated exposure control for dose reduction was used. DATE OF EXAM: 12/31/2023 8:40 PM COMPARISON: None. CLINICAL INDICATION:Male, 38 years old with history of fall; PHH, fall. no contrast TECHNIQUE: Multiple unenhanced axial CT images were obtained of the facial bones soft tissue and bone windows. Coronal, axial and sagittal reformatted images were also provided in soft tissue and bone windows and submitted for interpretation. FINDINGS: There is no evidence of fracture, subluxation, dislocation, or significant soft tissue swelling. The orbital contents are unremarkable. The temporal-mandibular joints appear symmetric and normally align ed. Mucosal thickening in the paranasal sinuses, please refer to separate CT head report. IMPRESSION: No evidence of acute facial bone fracture.
[2023-12-31 21:05] LABS: ALT 12 U/L (4-49); AST 27 U/L (17-59); African American GFR (CKD) >90 (>60 ml/min/1.73 sqM); Albumin 3.9 g/dL (3.5-5.0); Alkaline Phosphatase 72 U/L (38-126); Anion Gap 8 mmol/L; Blood Urea Nitrogen 6 mg/dL (9-20); Calcium 8.5 mg/dL (8.4-10.2); Carbon Dioxide 23 mmol/L (22-30); Chloride 117 mmol/L (98-107); Glucose 87 mg/dL (74-99); Magnesium 1.8 mg/dL (1.6-2.3); Non-African American GFR(CKD) >90 (>60 ml/min/1.73 sqM); Phosphorus 3.6 mg/dL (2.5-4.5); Potassium 3.5 mmol/L (3.5-5.1); Sodium 148 mmol/L (137-145); Total Bilirubin 0.3 mg/dL (0.2-1.3); Total Protein 7.2 g/dL (6.3-8.2)
[2023-12-31] MEDS: LORazepam 2 MG/ML INJ IV PRN (22:38)
--- NOTE | 2024-01-01 01:42 | P.HPIM ---
History of Present Illness H&P Date: 12/31/23 Patient is a 38-year-old male with a PMH of extensive alcohol abuse, schizophrenia, bipolar disorder, currently homeless well-known to this facility, who was discharged from the facility yesterday now presents after a fall with face trauma. The patient was also brought to the emergency room earlier today after he was found altered sleeping outside of a grocery store. Reports that he was drinking earlier, his usual pint of hard liquor daily when he tripped and fell, hitting his face on the ground. He reports ongoing 3 out of 10 diffuse face pain at the time of interview. Denied experiencing weakness, numbness, tingling, visual disturbances. Denied fever, chills, cough. Facial CT in the emergency room was unremarkable with head/cervical spine CT also unremarkable. EKG revealed sinus rhythm at [address]/T wave changes noted as reviewed by me. Laboratory evaluation was remarkable for hemoglobin 12.8, sodium 148, chloride 117, BUN 6, creatinine 0.56, glucose 87. The patient's alcohol level from earlier today was 250. ED documentation reviewed and case discussed with ED provider. Review of systems: Pertinent positives and negatives as discussed in HPI, a complete review of systems was performed and all other systems are negative. Physical examination: Vital signs reviewed General: Intoxicated appearing male with obvious facial trauma, disheveled, no distress, appears at stated age, normal weight Derm: Abrasion over the nose and multiple superficial abrasions throughout the face Head: atraumatic, normocephalic, symmetric Eyes: EOMI, no lid lag, anicteric sclera, pupils equal round reactive to light ENT: Nose and ears atraumatic Neck: No cervical lymphadenopathy, trachea midline, supple Mouth: no lip lesion, mucus membranes moist Cardiovascular: S1S2 reg, no murmur, positive dorsalis pedis pulse bilateral, no edema Lungs: CTA bilateral, no rhonchi, no rales, no accessory muscle use Abdominal: soft, nontender to palpation, no guarding Ext: muscle strength 5 out of 5 in all 4 extremities grossly, no gross muscle atrophy, no contractures, Neuro: CN II-XI grossly intact, no gross focal neuro deficits Psych: Appears intoxicated and somewhat slow to respond but following all directions and answering questions appropriately, oriented x 3 Assessment: Alcohol intoxication with mechanical fall and facial trauma, impending withdrawal Chronic conditions: Schizophrenia and bipolar disorder Imaging: Facial CT in the emergency room was unremarkable with head/cervical spine CT also unremarkable. EKG revealed sinus rhythm at [address]/T wave c hanges noted as reviewed by me. Data Review: Laboratory evaluation was remarkable for hemoglobin 12.8, sodium 148, chloride 117, BUN 6, creatinine 0.56, glucose 87. The patient's alcohol level from earlier today was 250. Plan: Seizure and fall precautions Facial CT at head/cervical spine CT unremarkable for fractures or additional acute abnormalities Continue with Ativan as needed for CIWA protocol IV fluids with normal saline 130 cc/h Continue with thiamine Patient counseled on the importance of alcohol cessation DVT prophylaxis: Lovenox subcu The patient is admitted with an anticipated less than 2 midnight stay for evaluation of alcohol intoxication CODE STATUS: Full Code Discussed with: Patient Anticipated discharge place: Home Past Medical History Past Medical History: GERD/Reflux, Hypertension, Liver Disease, Skin Disorder Additional Past Medical History / Comment(s): Hepatitis C, Pancreatitis, DDD, back pain, bilateral carpel tunnel syndrome. In the past has reported that he has heart disease that was found when he had kidney problems but he denies having a stress test or cardiac catheterization. History of Any Multi-Drug Resistant Organisms: None Reported MDRO Source:: unknown Past Surgical History: No Surgical Hx Reported, Unable to Obtain Additional Past Surgical History / Comment(s): Pt states he has had numerous "cysts" removed from where he injected IV drugs. Past Anesthesia/Blood Transfusion Reactions: No Reported Reaction, Unable to Obtain Additional Past Anesthesia/Blood Transfusion Reaction / Comment(s): In the past pt reported that he has never had surgery Past Psychological History: Anxiety, Bipolar, Depression, Schizophrenia Additional Psychological History / Comment(s): He has had multiple [facility] mental health admissions and suicide attempts in the past. Smoking Status: Current every day smoker Past Alcohol Use History: Abuse Additional Past Alcohol Use History / Comment(s): Pt started smoking in 1994 and smokes 1ppd. Unable to obtain alcohol history but chart states pt has history of alcohol abuse. Past Drug Use History: Marijuana, Methamphetamine, Opiates Additional Drug Use History / Comment(s): During this admission patient tested positive for Amphetamines, Methamphetamines, Cocaine, and Marijuana. Patient has past history of herion abuse. - Past Family History Mother Family Medical History: Unable to Obtain, Rheumatoid Arthritis (RA) Additional Family Medical History / Comment(s): Mother is . Father Family Medical History: Coronary Artery Disease (CAD) Medications and Allergies Home Medications Medication Instructions Recorded Confirmed Type Haloperidol Decanoate [Haldol D] 200 mg IM Q14D 1 Days #1 each 10/20/23 12/31/23 Rx QUEtiapine [SEROquel] 25 mg PO BID 30 Days #60 tab 12/11/23 12/31/23 Rx Thiamine [Vitamin B-1] 100 mg PO DAILY 30 Days #30 tab 12/11/23 12/31/23 Rx buPROPion XL [Wellbutrin XL] 150 mg PO DAILY 30 Days #30 tab 12/11/23 12/31/23 Rx busPIRone HCl [Buspar] 7.5 mg PO BID 30 Days #60 tab 12/11/23 12/31/23 Rx Allergies Allergy/AdvReac Type Severity Reaction Status Date / Time flea Allergy Rash/Hives Uncoded 12/31/23 16:17 Physical Exam Vitals: Vital Signs Temp Pulse Resp BP Pulse Ox 12/31/23 23:02 76 18 134/93 98 12/31/23 22:40 86 20 148/100 96 12/31/23 21:57 80 18 156/105 99 12/31/23 21:01 73 18 151/105 96 12/31/23 19:57 97.4 F L 75 20 160/117 96 Intake and Output 12/31/23 12/31/23 01/01/24 14:59 22:59 06:59 Other: Weight 88.451 kg 88.451 kg Results CBC & Chem 7: 12/31/23 20:45 12/31/23 20:45 Labs: Abnormal Lab Results - Last 24 Hours (Table) 12/31/23 12/31/23 Range/Units 20:45 20:45 Hgb 12.8 L (13.0-17.5) gm/dL Hct 38.5 L (39.0-53.0) % RDW 15.6 H (11.5-15.5) % Sodium 148 H (137-145) mmol/L Chloride 117 H (98-107) mmol/L BUN 6 L (9-20) mg/dL Creatinine 0.56 L (0.66-1.25) mg/dL
[2024-01-01] MEDS: THIAMINE 100 MG TAB PO SCH (08:39)
[2024-01-01] MEDS: PANTOPRAZOLE 40 MG/10 ML VIAL IV SCH (08:39)
[2024-01-01] MEDS: ENOXAPARIN 40 MG/0.4 ML SYRINGE SQ SCH (08:39)
[2024-01-01] MEDS ORDERED: SODIUM CHLORIDE 0.9% 1,000 ML IV SCH (08:45)
[2024-01-01 09:04] VITALS: BP 130/86; PULSE 63; RESP 16; TEMP 98.2
[2024-01-01] MEDS: busPIRone HCl 5 MG TAB PO SCH (10:34)
[2024-01-01] MEDS: QUEtiapine 25 MG TAB PO SCH (10:34)
[2024-01-01] MEDS: buPROPion XL 150 MG TAB.ER.24H PO SCH (10:43)
--- NOTE | 2024-01-01 11:36 | P.PN ---
Subjective Progress Note Date: 01/01/24 Hospital course: Patient is a 38-year-old male with a past medical history of alcoholism, polysubstance abuse, and schizoaffective disorder. He is well-known to our services secondary to multiple recurrent admissions for alcohol/substance abuse and mental health disorders. This being patient's third admission in just the last week for alcohol intoxication. For this admission patient presented on 12/31/2023 for alcohol intoxication and fall. He underwent full evaluation in the emergency department. Vital signs upon arrival show blood pressure 160/117, heart rate 75, respiratory rate 20, temp 97.4 F, SpO2 of 96% on room air. EKG was completed showing normal sinus rhythm at 75 bpm with no noted T wave or ST abnormalities showing no signs of acute ischemia upon personal review and interpretation. CT facial bones was completed negative for acute fracture. CT head was negative for acute intracranial abnormality. CT cervical spine negative for acute cervical spine fracture or traumatic malalignment. Labs completed and reviewed. CBC showing stable normocytic anemia with hemoglobin of 12.8. BMP revealing hyper natremia with sodium of 148 and hyperchloremia with chloride of 117. Calcium normal findings at 8.5 magnesium 1.8 and liver profile unremarkable. Alcohol 250. Patient was admitted under our services for alcohol withdrawal. Physical exam: Patient seen and fully evaluated at bedside this morning. He was ambulating in room listening to music. Patient currently denies any complaints including headache, lightheadedness, dizziness, chest pain, palpitations, or feeling any numbness/tingling/weakness in his extremities. Patient was ambulatory with a steady gait. He denies having any suicidal or homicidal ideations and denies any visual or auditory hallucinations. Vital signs reviewed and stable. General: Nontoxic, no distress and appears stated age. Derm: Skin warm and dry, normal coloration for ethnicity. Head: Atraumatic, normocephalic and symmetric. Eyes: EOMs intact, no lid lag, and anicteric sclera Mouth: no lip lesions, mucus membranes moist Cardiovascular: regular rate and rhythm with normal S1S2, no murmur, positive posterior tibial pulses bilaterally, and cap refill < 2 seconds. Lungs: Respirations even, regular, and unlabored on room air. Lungs CTA bilater ally, no rhonchi, no rales, no wheezing, and no accessory muscle usage. Abdominal: soft, nontender to palpation, no guarding, no appreciable organomegaly Ext: ROM intact. No gross muscle atrophy, no edema, no contractures Neuro: Speech clear, face symmetrical and CN II-XII grossly intact with no noted focal neuro deficits Psych: Alert and oriented to person, place, time, and situation. Appropriate and pleasant affect. Assessment and Plan of Care: Alcohol withdraw Acute alcohol intoxication in active alcoholic upon admission Hypernatremia and hyperchloremia Polysubstance abuse Schizoaffective disorder Bipolar disorder -Continue monitoring of CIWA scores and patient to be medicated with Ativan 0.5 mg every 4 hours as needed for CIWA score of 4-5, Ativan 1 mg every 4 hours for CIWA score of 6-7, Ativan 2 mg every 3 hours CIWA score of 8-9, and Ativan 2 mg every 2 hours forr CIWA score of 10 or greater. -Continuous IV hydration. -Thiamine 100 mg daily -Multivitamin daily -Folate 1 mg daily -Seizure, fall, aspiration, and elopement precautions in place. -Continued close monitoring of electrolytes and replace as needed. -Continue daily home medication regimen with Wellbutrin 150 mg daily, BuSpar 7.5 mg twice daily, and Seroquel 25 mg twice daily. Patient to continue haloperidol decanoate injections 200 mg IM q. 14 days on outpatient basis when follows up with [facility]. -Psychiatry consulted for evaluation. Appreciate recommendations. Data and imaging reviewed: No new imaging for review. Personally reviewed CTs completed upon arrival. Morning vitals reviewed and stable with blood pressure 130/86, heart rate 63, respiratory rate 16, temp 98.2 F, and SpO2 of 98% on room air. CODE STATUS: Full code DVT prophylaxis: Lovenox Anticipated discharge date: 24-[address]: Strongly recommend drug and alcohol rehabilitation facility. Patient was seen independently by Nurse Pracitioner. I reviewed the documentation as provided by the ENOCH above, who is the original author of this note. I agree with the documented assessment and plan, with the following changes: none Objective - Vital Signs Vital signs: Vital Signs Temp 97.7 F 01/01/24 01:15 Pulse 79 01/01/24 01:15 Resp 18 01/01/24 01:15 BP 159/103 01/01/24 01:15 Pulse Ox 98 02/12/24 08:26 FiO2 Intake & Output 12/31/23 01/01/24 01/01/24 18:59 06:59 18:59 Weight 88.451 kg Other: # Voids 3 - Labs CBC & Chem 7: 12/31/23 20:45 12/31/23 20:45 Labs: Abnormal Lab Results - Last 24 Hours (Table) 12/31/23 12/31/23 Range/Units 20:45 20:45 Hgb 12.8 L (13.0-17.5) gm/dL Hct 38.5 L (39.0-53.0) % RDW 15.6 H (11.5-15.5) % Sodium 148 H (137-145) mmol/L Chloride 117 H (98-107) mmol/L BUN 6 L (9-20) mg/dL Creatinine 0.56 L (0.66-1.25) mg/dL
--- NOTE | 2024-01-01 12:51 | P.DS ---
Providers Date of admission: 12/31/23 20:14 Expected date of discharge: 01/01/24 Attending physician: Seth Flores MD Consults: 12/31/23 20:14 Consult Physician Routine Consulting Provider: Gamal Ruvalcaba Consult Reason/Comments: depression Do you want consulting provider notified?: Already Contacted Primary care physician: Stated None Hospital Course: Received notification from RN that pt left AGAINST MEDICAL ADVICE on 01/01/2024 at 11:30 AM Diagnoses throughout hospitalization include: Alcohol withdraw Acute alcohol intoxication in active alcoholic upon admission Hypernatremia and hyperchloremia Polysubstance abuse Schizoaffective disorder Bipolar disorder Hospital course: Patient is a 38-year-old male with a past medical history of alcoholism, polysubstance abuse, and schizoaffective disorder. He is well-known to our services secondary to multiple recurrent admissions for alcohol/substance abuse and mental health disorders. This being patient's third admission in just the last week for alcohol intoxication. For this admission patient presented on 12/31/2023 for alcohol intoxication and fall. He underwent full evaluation in the emergency department. Vital signs upon arrival show blood pressure 160/117, heart rate 75, respiratory rate 20, temp 97.4 F, SpO2 of 96% on room air. EKG was completed showing normal sinus rhythm at 75 bpm with no noted T wave or ST abnormalities showing no signs of acute ischemia upon personal review and interpretation. CT facial bones was completed negative for acute fracture. CT head was negative for acute intracranial abnormality. CT cervical spine negative for acute cervical spine fracture or traumatic malalignment. Labs completed and reviewed. CBC showing stable normocytic anemia with hemoglobin of 12.8. BMP revealing hyper natremia with sodium of 148 and hyperchloremia with chloride of 117. Calcium normal findings at 8.5 magnesium 1.8 and liver profile unremarkable. Alcohol 250. Patient was admitted under our services for alcohol withdrawal and consult was placed to psychiatry. Received notification from RN that patient left AGAINST MEDICAL ADVICE on 01/01/2024 at 11:30 AM. Physical exam: Patient seen and fully evaluated at bedside this morning. He was ambulating in room listening to music. Patient currently denies any complaints including headache, lightheadedness, dizziness, chest pain, palpitations, or feeling any numbness/tingling/weakness in his extremities. Patient was ambulatory with a steady gait. He denies having any suicidal or homicidal ideations and denies any visual or auditory hallucinations. Vital signs reviewed and stable. General: Nontoxic, no distress and appears stated age. Derm: Skin warm and dry, normal coloration for ethnicity. Head: Atraumatic, normocephalic and symmetric. Eyes: EOMs intact, no lid lag, and anicteric sclera Mouth: no lip lesions, mucus membranes moist Cardiovascular: regular rate and rhythm with normal S1S2, no murmur, positive posterior tibial pulses bilaterally, and cap refill < 2 seconds. Lungs: Respirations even, regular, and unlabored on room air. Lungs CTA bilaterally, no rhonchi, no rales, no wheezing, and no accessory muscle usage. Abdominal: soft, nontender to palpation, no guarding, no appreciable organomegaly Ext: ROM intact. No gross muscle atrophy, no edema, no contractures Neuro: Speech clear, face symmetrical and CN II-XII grossly intact with no noted focal neuro deficits Psych: Alert and oriented to person, place, time, and situation. Appropriate and pleasant affect. Pt left AGAINST MEDICAL ADVICE on 01/01/2024 at 11:30 AM This document was prepared using [employer] dictation software. Please allow for errors in landscape photographer while rare they do occur. I reviewed the documentation as provided by the ENOCH above, who is the original author of this note. I agree with the documented assessment and plan, with the following changes: none Patient Condition at Discharge: Undetermined Plan - Discharge Summary New Discharge Prescriptions: No Action Thiamine [Vitamin B-1] 100 mg PO DAILY 30 Days #30 tab Haloperidol Decanoate [Haldol D] 200 mg IM Q14D 1 Days #1 each busPIRone HCl [Buspar] 7.5 mg PO BID 30 Days #60 tab QUEtiapine [SEROquel] 25 mg PO BID 30 Days #60 tab buPROPion XL [Wellbutrin XL] 150 mg PO DAILY 30 Days #30 tab Discharge Medication List Haloperidol Decanoate [Haldol D] 200 mg IM Q14D 1 Days #1 each 10/20/23 [Rx] QUEtiapine [SEROquel] 25 mg PO BID 30 Days #60 tab 12/11/23 [Rx] Thiamine [Vitamin B-1] 100 mg PO DAILY 30 Days #30 tab 12/11/23 [Rx] buPROPion XL [Wellbutrin XL] 150 mg PO DAILY 30 Days #30 tab 12/11/23 [Rx] busPIRone HCl [Buspar] 7.5 mg PO BID 30 Days #60 tab 12/11/23 [Rx] Follow up Appointment(s)/Referral(s): None,Stated [Primary Care Provider] - 1-2 days Patient Instructions/Handouts: Seizure/Epilepsy Discharge Instructions & Follow-Up Discharge/Stand Alone Forms: AA Meetings [place], [facility] Shelters, Community Resources, Outpatient Counseling, Inp Substance Abuse Facilities Discharge Disposition: LEFT AGAINST MEDICAL ADVICE
== END 2024-01-01 11:42 | disposition left against medical advice (07) ==
LOC: EC 19:52 → 4SSUR 20:14
PROVIDERS: ADMIT Internal Medicine; ATTEND Internal Medicine
DX: F10.129 Alcohol abuse with intoxication, unspecified (principal); F10.139 Alcohol abuse with withdrawal, unspecified; E87.0 Hyperosmolality and hypernatremia; F19.10 Other psychoactive substance abuse, uncomplicated; K21.9 Gastro-esophageal reflux disease without esophagitis; F25.9 Schizoaffective disorder, unspecified; F31.9 Bipolar disorder, unspecified; S00.31XA Abrasion of nose, initial encounter; S00.81XA Abrasion of other part of head, initial encounter; F17.210 Nicotine dependence, cigarettes, uncomplicated; I10 Essential (primary) hypertension; B19.20 Unspecified viral hepatitis C without hepatic coma; F41.9 Anxiety disorder, unspecified; E87.8 Other disorders of electrolyte and fluid balance, not elsewhere classified; Y90.8 Blood alcohol level of 240 mg/100 ml or more; W01.0XXA Fall on same level from slipping, tripping and stumbling without subsequent striking against object, initial encounter; Z79.899 Other long term (current) drug therapy; Z53.29 Procedure and treatment not carried out because of patient's decision for other reasons; Z91.51 Personal history of suicidal behavior
CPT/HCPCS: 96376; 96361 ×2; 96372; 96374; 96375; 99285; 94760; 93005; 80053; 83735; 84100; 85025; 72125; 70486; 70450; G0378 ×2; J2060 ×2; J3411; J1650; C9113

== ENCOUNTER 2024-01-01 14:35 | Emergency (ER) | payer OTHER ==
[2024-01-01 15:05] VITALS: BP 141/89; PULSE 88; RESP 14; TEMP 98.4
--- NOTE | 2024-01-01 15:26 | ED ---
Alcohol HPI - General Chief Complaint: Alcohol Stated Complaint: ETOH Time Seen by Provider: 01/01/24 14:37 Source: EMS, RN notes reviewed, old records reviewed Mode of arrival: EMS - History of Present Illness Initial Comments: This is a 38-year-old male presenting by PD for alcohol intoxication, patient is not under petition. 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) Previous Visits for Alcohol Intoxication?: Yes Recent Trauma: Yes Treatments Prior to Arrival: none Chronic Alcohol Use: Yes - Related Data Previous Rx's Medication Instructions Recorded Haloperidol Decanoate [Haldol D] 200 mg IM Q14D 1 Days #1 each 10/20/23 QUEtiapine [SEROquel] 25 mg PO BID 30 Days #60 tab 12/11/23 Thiamine [Vitamin B-1] 100 mg PO DAILY 30 Days #30 tab 12/11/23 buPROPion XL [Wellbutrin XL] 150 mg PO DAILY 30 Days #30 tab 12/11/23 busPIRone HCl [Buspar] 7.5 mg PO BID 30 Days #60 tab 12/11/23 Allergies Allergy/AdvReac Type Severity Reaction Status Date / Time flea Allergy Rash/Hives Uncoded 01/04/24 13:20 Review of Systems ROS Statement: Those systems with pertinent positive or pertinent negative responses have been documented in the HPI. ROS Other: All systems not noted in ROS Statement are negative. Past Medical History Past Medical History: GERD/Reflux, Hypertension, Liver Disease, Skin Disorder Additional Past Medical History / Comment(s): Hepatitis C, Pancreatitis, DDD, back pain, bilateral carpel tunnel syndrome. In the past has reported that he has heart disease that was found when he had kidney problems but he denies having a stress test or cardiac catheterization. History of Any Multi-Drug Resistant Organisms: None Reported MDRO Source:: unknown Past Surgical History: No Surgical Hx Reported, Unable to Obtain Additional Past Surgical History / Comment(s): Pt states he has had numerous "cysts" removed from where he injected IV drugs. Past Anesthesia/Blood Transfusion Reactions: No Reported Reaction, Unable to Obtain Additional Past Anesthesia/Blood Transfusion Reaction / Comment(s): In the past pt reported that he has never had surgery Past Psychological History: Anxiety, Bipolar, Depression, Schizophrenia Smoking Status: Current every day smoker Past Alcohol Use History: Abuse Past Drug Use History: Marijuana, Methamphetamine, Opiates - Past Family History Mother Family Medical History: Unable to Obtain, Rheumatoid Arthritis (RA) Additional Family Medical History / Comment(s): Mother is . Father Family Medical History: Coronary Artery Disease (CAD) General Exam General appearance: alert, in no apparent distress Head exam: Present: atraumatic, normocephalic, normal inspection Eye exam: Present: normal appearance, PERRL, EOMI. Absent: scleral icterus, conjunctival injection, periorbital swelling ENT exam: Present: normal exam, mucous membranes moist Neck exam: Present: normal inspection. Absent: tenderness, meningismus, lymphadenopathy Respiratory exam: Present: normal lung sounds bilaterally. Absent: respiratory distress, wheezes, rales, rhonchi, stridor Cardiovascular Exam: Present: regular rate, normal rhythm, normal heart sounds. Absent: systolic murmur, diastolic murmur, rubs, gallop, clicks GI/Abdominal exam: Present: soft, normal bowel sounds. Absent: distended, tenderness, guarding, rebound, rigid Extremities exam: Present: normal inspection, full ROM, normal capillary refill. Absent: tenderness, pedal edema, joint swelling, calf tenderness Back exam: Present: normal inspection Neurological exam: Present: alert, oriented X3, CN II-XII intact Psychiatric exam: Present: normal affect, normal mood Skin exam: Present: warm, dry, intact, normal color. Absent: rash Course Vital Signs 01/01/24 14:39 Temperature 98.4 F Pulse Rate 88 Respiratory 14 Rate Blood Pressure 141/89 O2 Sat by Pulse 97 Oximetry - Reevaluation(s) Reevaluation #1: 01/01/24 15:31 Medical records reviewed Reevaluation #2: 01/01/24 15:31 Patient symptoms unchanged 01/01/24 15:31 Patient does not want to be seen in the hospital and would like to be discharged Reevaluation #3: 01/01/24 15:31 Patient informed of results and questions answered Reevaluation #4: Was pt. sent in by a medical professional or institution (, PA, STRINGED INSTRUMENT TUNER, urgent care, hospital, or halfway...) When possible be specific @ -no Did you speak to anyone other than the patient for history (EMS, parent, family, police, friend...)? What history was obtained from this source @ -no Did you review nursing and triage notes (agree or disagree)? Why? @ -agree Are old charts reviewed (outside hosp., previous admission, EMS record, old EKG, old radiological studies, urgent care reports/EKG's, halfway records)? Report findings @ -yes Differential Diagnosis (chest pain, altered mental status, abdominal pain women, abdominal pain men, vaginal bleeding, weakness, fever, dyspnea, syncope, headache, dizziness, GI bleed, back pain, seizure, CVA, palpatations, mental health, musculoskeletal)? @ -prior EKG interpreted by me (3pts min.). @ -no X-rays interpreted by me (1pt min.). @ -no CT interpreted by me (1pt min.). @ -no U/S interpreted by me (1pt. min.). @ -no What testing was considered but not performed or refused? (CT, X-rays, U/S, labs)? Why? @ -none What meds were considered but not given or refused? Why? @ -none Did you discuss the management of the patient with other professionals (professionals i.e. , PA, STRINGED INSTRUMENT TUNER, lab, RT, psych nurse, social services specialist, nurse staff community health, teacher, evp chief exploration officer, renal case manager)? Give summary @ -no Was smoking cessation discussed for >3mins.? @ -no Was critical care preformed (if so, how long)? @ -no Were there social determinants of health that impacted care today? How? (Homelessness, low income, unemployed, alcoholism, drug addiction, transportation, low edu. Level, literacy, decrease access to med. care, fdc, rehab)? @ -none Was there de-escalation of care discussed even if they declined (Discuss DNR or withdrawal of care, Hospice)? DNR status @ -no What co-morbidities impacted this encounter? (DM, HTN, Smoking, COPD, CAD, Cancer, CVA, ARF, Chemo, Hep., AIDS, mental health diagnosis, sleep apnea, morbid obesity)? @ -none Was patient admitted / discharged? Hospital course, mention meds given and route, prescriptions, significant lab abnormalities, going to OR and other pertinent info. @ -38 male to ER for evaluation of altered mental status. Alcohol intoxication. Patient has multiple ER visits with recent admission approximately status and patient will be discharged home patient does not want evaluation or inpatient stay Discharge Undiagnosed new problem with uncertain prognosis? @ -no Drug Therapy requiring intensive monitoring for toxicity (Heparin, Nitro, Insulin, Cardizem)? @ -no Were any procedures done? @ -no Diagnosis/symptom? @ -AMS, ETOH Acute, or Chronic, or Acute on Chronic? @ -Acute Uncomplicated (without systemic symptoms) or Complicated (systemic symptoms)? @ -Complicated Side effects of treatment? @ -no Exacerbation, Progression, or Severe Exacerbation? @ -exacerbation Poses a threat to life or bodily function? How? (Chest pain, [place], [place], pneumonia, PE, COPD, DKA, ARF, appy, cholecystitis, CVA, Diverticulitis, Homicidal, Suic idal, threat to staff... and all critical care pts) @ -yes 01/09/24 06:29 Reevaluation #5: Differential Altered Mental Status: Hypoglycemia, DKA, hypercapnia, ETOH, overdose, CO poisoning, trauma, myxedema coma, HTN encephalopathy, infection, encephalitis, psychosis, intercranial hemorrhage, hepatic encephalopathy, meningitis, CVA, this is not meant to be an all-inclusive list Medical Decision Making - Medical Decision Making 38 male to ER for evaluation of altered mental status. Alcohol intoxication. Patient has multiple ER visits with recent admission approximately status and patient will be discharged home patient does not want evaluation or inpatient stay Disposition Clinical Impression: Alcohol abuse Disposition: HOME SELF-CARE Condition: Fair Instructions (If sedation given, give patient instructions): Alcohol Intoxication (ED) Is patient prescribed a controlled substance at d/c from ED?: No Referrals: None,Stated [Primary Care Provider] - 1-2 days Time of Disposition: 15:30
== END 2024-01-01 15:37 | disposition home or self-care (01) ==
LOC: EC 14:35
DX: F10.129 Alcohol abuse with intoxication, unspecified (principal); R41.82 Altered mental status, unspecified; I10 Essential (primary) hypertension; F17.200 Nicotine dependence, unspecified, uncomplicated; F12.90 Cannabis use, unspecified, uncomplicated; F15.90 Other stimulant use, unspecified, uncomplicated; F11.90 Opioid use, unspecified, uncomplicated; Z91.09 Other allergy status, other than to drugs and biological substances
CPT/HCPCS: 99284

== ENCOUNTER 2024-01-02 22:33 | Emergency (ER) | payer OTHER ==
--- NOTE | 2024-01-03 03:35 | ED ---
Alcohol HPI - General Chief Complaint: Alcohol Stated Complaint: ETOH Time Seen by Provider: 01/02/24 22:39 Source: patient Mode of arrival: EMS Limitations: no limitations - History of Present Illness Initial Comments: This patient is a 38-year-old man who is brought to have evaluation for suspected intoxication. The patient reportedly found asleep outside a drinking establishment. The patient is alert. He denies fall or trauma. Patient denies pain or dyspnea. 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 Previous Visits for Alcohol Intoxication?: Yes Recent Trauma: No Associated Symptoms: denies other symptoms Treatments Prior to Arrival: none Chronic Alcohol Use: Yes - Related Data Previous Rx's Medication Instructions Recorded Haloperidol Decanoate [Haldol D] 200 mg IM Q14D 1 Days #1 each 10/20/23 QUEtiapine [SEROquel] 25 mg PO BID 30 Days #60 tab 12/11/23 Thiamine [Vitamin B-1] 100 mg PO DAILY 30 Days #30 tab 12/11/23 buPROPion XL [Wellbutrin XL] 150 mg PO DAILY 30 Days #30 tab 12/11/23 busPIRone HCl [Buspar] 7.5 mg PO BID 30 Days #60 tab 12/11/23 Allergies Allergy/AdvReac Type Severity Reaction Status Date / Time flea Allergy Rash/Hives Uncoded 01/04/24 13:20 Review of Systems ROS Statement: Those systems with pertinent positive or pertinent negative responses have been documented in the HPI. ROS Other: All systems not noted in ROS Statement are negative. Constitutional: Denies: fever, weakness Eyes: Denies: vision change Respiratory: Denies: cough, dyspnea Cardiovascular: Denies: chest pain, palpitations, orthopnea Gastrointestinal: Denies: abdominal pain, vomiting, diarrhea Genitourinary: Denies: dysuria, hematuria Musculoskeletal: Denies: back pain Skin: Denies: rash Neurological: Denies: headache, weakness, confusion Psychiatric: Denies: homicidal thoughts, suicidal thoughts Past Medical History Past Medical History: GERD/Reflux, Hypertension, Liver Disease, Skin Disorder Additional Past Medical History / Comment(s): Hepatitis C, Pancreatitis, DDD, back pain, bilateral carpel tunnel syndrome. In the past has reported that he has heart disease that was found when he had kidney problems but he denies having a stress test or cardiac catheterization. History of Any Multi-Drug Resistant Organisms: None Reported MDRO Source:: unknown Past Surgical History: No Surgical Hx Reported, Unable to Obtain Additional Past Surgical History / Comment(s): Pt states he has had numerous "cysts" removed from where he injected IV drugs. Past Anesthesia/Blood Transfusion Reactions: No Reported Reaction, Unable to Obtain Additional Past Anesthesia/Blood Transfusion Reaction / Comment(s): In the past pt reported that he has never had surgery Past Psychological History: Anxiety, Bipolar, Depression, Schizophrenia Smoking Status: Current every day smoker Past Alcohol Use History: Abuse Past Drug Use History: Marijuana, Methamphetamine, Opiates - Past Family History Mother Family Medical History: Unable to Obtain, Rheumatoid Arthritis (RA) Additional Family Medical History / Comment(s): Mother is . Father Family Medical History: Coronary Artery Disease (CAD) General Exam Limitations: no limitations General appearance: alert, in no apparent distress Head exam: Present: atraumatic, normocephalic Eye exam: Present: normal appearance. Absent: scleral icterus, conjunctival injection ENT exam: Present: normal oropharynx Neck exam: Present: normal inspection, full ROM. Absent: tenderness Respiratory exam: Present: normal lung sounds bilaterally. Absent: respiratory distress, wheezes, rales, rhonchi, stridor, chest wall tenderness Cardiovascular Exam: Present: regular rate, normal rhythm, normal heart sounds. Absent: systolic murmur, diastolic murmur, rubs, gallop GI/Abdominal exam: Present: soft. Absent: distended, tenderness, guarding, rebound, rigid, mass Extremities exam: Present: normal inspection, normal capillary refill. Absent: pedal edema, calf tenderness Back exam: Present: normal inspection. Absent: CVA tenderness (R), CVA tenderness (L) Neurological exam: Present: alert, CN II-XII intact. Absent: motor sensory deficit Skin exam: Present: warm, dry, intact, normal color. Absent: rash Course Vital Signs 01/02/24 01/03/24 01/03/24 22:51 01:35 03:46 Temperature 97.4 F L 97.6 F Pulse Rate 82 81 100 Respiratory 18 22 18 Rate Blood Pressure 148/92 128/83 137/94 O2 Sat by Pulse 97 96 100 Oximetry Medical Decision Making - Medical Decision Making Patient is a 38-year-old man with history of chronic alcohol use. I did order labs initially based on the patient's triage complaint, however after evaluation he is alert and appropriate therefore labs are canceled. The patient allowed to sleep and reevaluated. After hours he is able to ambulate to the bathroom and back with steady gait. As the patient has no complaints, will be allowed to go after he received food and drink. Was pt. sent in by a medical professional or institution (, PA, PARAMEDICAL AIDE, urgent care, hospital, or fdc...) When possible be specific @ -[No] Did you speak to anyone other than the patient for history (EMS, parent, family, police, friend...)? What history was obtained from this source @ -[No] Did you review nursing and triage notes (agree or disagree)? Why? @ -[I reviewed and agree with nursing and triage notes] Were old charts reviewed (outside hosp., previous admission, EMS record, old EKG, old radiological studies, urgent care reports/EKG's, fdc records)? Report findings @ -[No old charts were reviewed] Differential Diagnosis (chest pain, altered mental status, abdominal pain women, abdominal pain men, vaginal bleeding, weakness, fever, dyspnea, syncope, headache, dizziness, GI bleed, back pain, seizure, CVA, palpatations, mental health, musculoskeletal)? @ -[Differential Mental Health Depression, anxiety, bipolar, psychosis, schizophrenia, borderline personality, situational depression, adjustment disorder, behavioral disorder, brain tumor, malingering, substance abuse, encephalopathy, medication reaction, dementia, hypothyroidism, degenerative neurologic disorder, lupus.... This is not meant to be all-inclusive list EKG interpreted by me (3pts min.). @ -[ X-rays interpreted by me (1pt min.). @ -[None done] CT interpreted by me (1pt min.). @ -[None done] U/S interpreted by me (1pt. min.). @ -[None done] What testing was considered but not performed or refused? (CT, X-rays, U/S, labs)? Why? @ -[None] What meds were considered but not given or refused? Why? @ -[None] Did you discuss the management of the patient with other professionals (professionals i.e. , LANE, PARAMEDICAL AIDE, lab, RT, psych nurse, social studies department chair, locate technician, teacher, credit or loans officer, comp field case manager)? Give summary @ -[No] Was smoking cessation discussed for >3mins.? @ -[No] Was critical care preformed (if so, how long)? @ -[No] Were there social determinants of health that impacted care today? How? (Homelessness, low income, unemployed, alcoholism, drug addiction, transportation, low edu. Level, literacy, decrease access to med. care, fdc, rehab)? @ -[No] Was there de-escalation of care discussed even if they declined (Discuss DNR or withdrawal of care, Hospice)? DNR status @ -[No] What co-morbidities impacted this encounter? (DM, HTN, Smoking, COPD, CAD, Cancer, CVA, ARF, Chemo, Hep., AIDS, mental health diagnosis, sleep apnea, morbid obesity)? @ -[None] Was patient admitted / discharged? Hospital course, mention meds given and route, prescriptions, significant lab abnormalities, going to OR and other pertinent info. @ -[Above Undiagnosed new problem with uncertain prognosis? @ -[No] Drug Therapy requiring intensive monitoring for toxicity (Heparin, Nitro, Ins ulin, Cardizem)? @ -[No] Were any procedures done? @ -[No] Diagnosis/symptom? @ -[Acute alcohol intoxication Acute, or Chronic, or Acute on Chronic? @ -[Acute Uncomplicated (without systemic symptoms) or Complicated (systemic symptoms)? @ -[Uncomplicated Side effects of treatment? @ -[No] Exacerbation, Progression, or Severe Exacerbation? @ -[No] Poses a threat to life or bodily function? How? (Chest pain, [place], [place], pneumonia, PE, COPD, DKA, ARF, appy, cholecystitis, CVA, Diverticulitis, Homicidal, Suicidal, threat to staff... and all critical care pts) @ -[No] Disposition Clinical Impression: Alcoholic intoxication Disposition: HOME SELF-CARE Condition: Good Instructions (If sedation given, give patient instructions): Alcohol Intoxication (ED) Is patient prescribed a controlled substance at d/c from ED?: No Referrals: None,Stated [Primary Care Provider] - 1-2 days
[2024-01-03 04:10] VITALS: BP 137/94; PULSE 100; RESP 18; TEMP 97.6
== END 2024-01-03 03:46 | disposition home or self-care (01) ==
LOC: EC 22:33
DX: F10.129 Alcohol abuse with intoxication, unspecified (principal); I10 Essential (primary) hypertension; F17.200 Nicotine dependence, unspecified, uncomplicated; F12.90 Cannabis use, unspecified, uncomplicated; F15.90 Other stimulant use, unspecified, uncomplicated; F11.90 Opioid use, unspecified, uncomplicated; Z91.038 Other insect allergy status
CPT/HCPCS: 99284

== ENCOUNTER 2024-01-04 11:56 | Inpatient (IN) | payer OTHER ==
[2024-01-04] MEDS: SODIUM CHLORIDE 0.9% 1,000 ML IV ONE ×3 (12:25→14:56)
[2024-01-04] MEDS: CALCIUM CHLORIDE 100 MG/ML 10 ML SYRINGE IVP STA (12:33)
[2024-01-04 12:56] LABS: Prothrombin Time 10.7 sec (10.0-12.5)
[2024-01-04 13:09] LABS: ALT 399 U/L (4-49); African American GFR (CKD) 25 (>60 ml/min/1.73 sqM); Albumin 5.1 g/dL (3.5-5.0); Alcohol <10 mg/dL; Alkaline Phosphatase 99 U/L (38-126); Anion Gap 25 mmol/L; Blood Urea Nitrogen 38 mg/dL (9-20); Calcium 8.6 mg/dL (8.4-10.2); Carbon Dioxide 11 mmol/L (22-30); Chloride 116 mmol/L (98-107); Glucose 105 mg/dL (74-99); Magnesium 3.2 mg/dL (1.6-2.3); Non-African American GFR(CKD) 21 (>60 ml/min/1.73 sqM); Potassium 5.1 mmol/L (3.5-5.1); Sodium 152 mmol/L (137-145); Total Bilirubin 0.7 mg/dL (0.2-1.3); Total Protein 8.9 g/dL (6.3-8.2)
[2024-01-04 13:14] LABS: Basophils # (A) 0.1 k/uL (0-0.2); Basophils % (A) 0 %; Eosinophils % (A) 0 %; HCT 49.8 % (39.0-53.0); Lymphocytes # (A) 0.4 k/uL (1.0-4.8); Lymphocytes % (A) 2 %; MCH 27.9 pg (25.0-35.0); MCHC 32.9 g/dL (31.0-37.0); MCV 84.7 fL (80.0-100.0); Monocytes # (A) 1.6 k/uL (0-1.0); Monocytes % (A) 7 %; Neutrophils # (A) 19.7 k/uL (1.3-7.7); Neutrophils % (A) 89 %; Platelet Count 274 k/uL (150-450); RBC 5.88 m/uL (4.30-5.90)
[2024-01-04 13:15] LABS: HGB 16.4 gm/dL (13.0-17.5)
--- NOTE | 2024-01-04 13:17 | XR ---
EXAMINATION TYPE: XR chest 1V portable DATE OF EXAM: 01/04/2024 12:55 PM CLINICAL INDICATION:Male, 38 years old with history of Short of breath; COMPARISON: Chest radiographs from 09/05/2023. TECHNIQUE: XR chest 1V portable Frontal view of the chest. FINDINGS: Lungs/Pleura: There is no evidence of pleural effusion, focal consolidation, or pneumothorax. Pulmonary vascularity: Unremarkable. Heart/mediastinum: Cardiomediastinal silhouette is unremarkable. Musculoskeletal: No acute osseous pathology. IMPRESSION: No acute cardiopulmonary disease/process.
[2024-01-04] MEDS: ACETAMINOPHEN TAB 325 MG TAB PO STA (13:31)
[2024-01-04] MEDS: IBUPROFEN 600 MG TAB PO STA (13:32)
--- NOTE | 2024-01-04 13:44 | ED ---
General Adult HPI - General Source: patient, EMS, RN notes reviewed, old records reviewed Mode of arrival: EMS <Rony Mohan - Last Filed: 01/04/24 14:51> <Ranulfo Healy - Last Filed: 01/04/24 22:21> - General Chief complaint: Recheck/Abnormal Lab/Rx Stated complaint: Hypothermia Time Seen by Provider: 01/04/24 11:56 - History of Present Illness Initial comments: This is a 38-year-old male who presents to the emergency department. EMS gives all the history. Patient is unable to give any history currently. Patient was found down in the snow face first when EMS got him up he was unable to speak with him at all and they thought he might be hypothermic. Patient is a known alcoholic to this department. Patient cannot give us any history and there is no one with the patient to give any history. (Rony Mohan) - Related Data Previous Rx's Medication Instructions Recorded Haloperidol Decanoate [Haldol D] 200 mg IM Q14D 1 Days #1 each 10/20/23 QUEtiapine [SEROquel] 25 mg PO BID 30 Days #60 tab 12/11/23 Thiamine [Vitamin B-1] 100 mg PO DAILY 30 Days #30 tab 12/11/23 buPROPion XL [Wellbutrin XL] 150 mg PO DAILY 30 Days #30 tab 12/11/23 busPIRone HCl [Buspar] 7.5 mg PO BID 30 Days #60 tab 12/11/23 Allergies Allergy/AdvReac Type Severity Reaction Status Date / Time flea Allergy Rash/Hives Uncoded 01/04/24 13:20 Review of Systems ROS Other: All systems not noted in ROS Statement are negative. <Rony Mohan - Last Filed: 01/04/24 14:51> ROS Other: All systems not noted in ROS Statement are negative. <Ranulfo Healy - Last Filed: 01/04/24 22:21> ROS Statement: Those systems with pertinent positive or pertinent negative responses have been documented in the HPI. Past Medical History Past Medical History: GERD/Reflux, Hypertension, Liver Disease, Skin Disorder Additional Past Medical History / Comment(s): Hepatitis C, Pancreatitis, DDD, back pain, bilateral carpel tunnel syndrome. In the past has reported that he has heart disease that was found when he had kidney problems but he denies having a stress test or cardiac catheterization. History of Any Multi-Drug Resistant Organisms: None Reported MDRO Source:: unknown Past Surgical History: No Surgical Hx Reported, Unable to Obtain Additional Past Surgical History / Comment(s): Pt states he has had numerous "cysts" removed from where he injected IV drugs. Past Anesthesia/Blood Transfusion Reactions: No Reported Reaction, Unable to Obtain Additional Past Anesthesia/Blood Transfusion Reaction / Comment(s): In the past pt reported that he has never had surgery Past Psychological History: Anxiety, Bipolar, Depression, Schizophrenia Smoking Status: Current every day smoker Past Alcohol Use History: Abuse Past Drug Use History: Marijuana, Methamphetamine, Opiates - Past Family History Mother Family Medical History: Unable to Obtain, Rheumatoid Arthritis (RA) Additional Family Medical History / Comment(s): Mother is . Father Family Medical History: Coronary Artery Disease (CAD) <Rony Mohan - Last Filed: 01/04/24 14:51> General Exam <Rony Mohan - Last Filed: 01/04/24 14:51> - General Exam Comments Initial Comments: GENERAL: Patient is well-developed and well-nourished. Patient is nontoxic and was unresponsive ENT: Neck is soft and supple. No significant lymphadenopathy is noted. Oropharynx is clear. Moist mucous membranes. Neck has full range of motion without eliciting any pain. EYES: The sclera were anicteric and conjunctiva were pink and moist. Extraocular movements were intact and pupils were equal round and reactive to light. Ey elids were unremarkable. PULMONARY: Unlabored respirations. Good breath sounds bilaterally. No audible rales rhonchi or wheezing was noted. CARDIOVASCULAR: Patient is tachycardic ABDOMEN: Soft and nontender with normal bowel sounds. SKIN: Skin is clear with no lesions or rashes and otherwise unremarkable. NEUROLOGIC: Patient is alert and oriented x 0. Cranial nerves II through XII are grossly intact. Motor and sensory are also intact. Normal speech, volume and content. Symmetrical smile. MUSCULOSKELETAL: Normal extremities with adequate strength and full range of motion. No lower extremity swelling or edema. No calf tenderness. PSYCHIATRIC: Unable to assess (Rony Mohan) Course Vital Signs 01/04/24 01/04/24 01/04/24 11:59 12:10 12:15 Temperature 97.3 F L 99.7 F H 98.3 F Pulse Rate 124 H 134 H Respiratory 20 22 Rate Blood Pressure 119/91 O2 Sat by Pulse 94 L 93 L Oximetry 01/04/24 01/04/24 01/04/24 13:04 13:55 14:30 Temperature 102.6 F H 102.0 F H Pulse Rate 128 H 116 H 113 H Respiratory 36 H 34 H 38 H Rate Blood Pressure 106/41 155/93 151/105 O2 Sat by Pulse 95 93 L 95 Oximetry 01/04/24 01/04/24 01/04/24 14:53 15:01 15:15 Temperature 98.2 F 100.0 F H Pulse Rate 109 H 110 H Respiratory 27 H 22 Rate Blood Pressure 166/111 162/98 O2 Sat by Pulse 95 94 L Oximetry 01/04/24 01/04/24 01/04/24 15:40 16:55 17:10 Temperature 100.0 F H 99.9 F H 99.9 F H Pulse Rate 106 H 102 H 104 H Respiratory 24 22 20 Rate Blood Pressure 177/98 154/105 165/109 O2 Sat by Pulse 95 97 93 L Oximetry 01/04/24 01/04/24 01/04/24 18:19 19:56 20:00 Temperature 99.3 F 98.4 F Pulse Rate 96 96 99 Respiratory 24 22 Rate Blood Pressure 159/104 148/118 O2 Sat by Pulse 95 95 Oximetry 01/04/24 01/04/24 20:14 21:00 Temperature Pulse Rate 94 88 Respiratory 20 Rate Blood Pressure 158/109 O2 Sat by Pulse 96 Oximetry Procedures - Sepsis Sepsis Focused Exam #1 Time Sepsis Criteria Met: 14:00 (No source of infection is found, not sure the patient is necessarily septic I believe the lactic acid secondary to dehydration but I did do a focused exam in case) Sepsis Focused Exam Date: 01/04/24 Sepsis Focused Exam Time: 15:02 Sepsis Focused Exam Complete: Yes Vital Signs & RN Notes Reviewed: Yes Capillary Refill: < 2 Seconds: Fingers Peripheral Pulses: Normal: Radial (R) Skin Color: Normal for Patient Respiratory Exam: normal lung sounds Cardiovascular Exam: tachycardia (Patient's heart rate was 109 bpm) <Rony Mohan - Last Filed: 01/04/24 14:51> <Ranulfo Healy - Last Filed: 01/04/24 22:21> - Procedures Initial comment: Infectious disease doctor, Dr. Edouard, contacted me and has been to perform a lumbar puncture on the patient as he is worried about the possibility of meningitis. The chart is reviewed and it does not appear as though the patient has any coagulopathy. The procedure is discussed in detail with the patient. Risks benefits are discussed in detail the patient is agreeable to have this performed. Verbal consent is obtained. The patient was placed on his right side. Under strict sterile technique, the L2-L3 interspace was anesthetized with 1% lidocaine, approximately 3 mL. I was unable to obtain any CSF upon CSF needle placement to this interspace. He received additional same anesthesia to the L3-L4 interspace. The CSF is easily obtained on first attempt this location. Approximately 4 mL were obtained in 4 separate containers and sent to lab via nursing staff. No complications were encountered. Patient tolerated procedure well and no blood loss noted. The infectious disease already ordered studies that they felt necessary. (Ranulfo Healy) Medical Decision Making - Lab Data Result diagrams: 01/04/24 12:12 01/04/24 12:12 <Rony Mohan - Last Filed: 01/04/24 14:51> - Lab Data Result diagrams: 01/04/24 12:12 01/04/24 19:48 <Ranulfo Healy - Last Filed: 01/04/24 22:21> - Medical Decision Making EKG is interpreted by myself. EKG shows sinus tachycardia at 125 bpm NH of 106 QRS of 77 QT interval is 269 QTc is 343. Patient's EKG shows significant peaked T waves diffusely. Was pt. sent in by a medical professional or institution (, PA, AIR BRAKE TESTER, urgent care, hospital, or long term...) When possible be specific @ -No Did you speak to anyone other than the patient for history (EMS, parent, family, police, friend...)? What history was obtained from this source @ -EMS gave all the history since the patient was unable to Did you review nursing and triage notes (agree or disagree)? Why? @ -I reviewed and agree with nursing and triage notes Were old charts reviewed (outside hosp., previous admission, EMS record, old EKG, old radiological studies, urgent care reports/EKG's, long term records)? Report findings @ -I reviewed prior charts and prior lab work on this patient Differential Diagnosis (chest pain, altered mental status, abdominal pain women, abdominal pain men, vaginal bleeding, weakness, fever, dyspnea, syncope, headache, dizziness, GI bleed, back pain, seizure, CVA, palpatations, mental health, musculoskeletal)? @ -Differential Altered Mental Status: Hypoglycemia, DKA, hypercapnia, ETOH, overdose, CO poisoning, trauma, myxedema coma, HTN encephalopathy, infection, encephalitis, psychosis, intercranial hemorrhage, hepatic encephalopathy, meningitis, CVA, this is not meant to be an all-inclusive list EKG interpreted by me (3pts min.). @ -As above X-rays interpreted by me (1pt min.). @ -Chest x-ray shows no acute abnormality CT interpreted by me (1pt min.). @ -CT of the brain showed no acute abnormality. CT of the C-spine shows no acute normality. U/S interpreted by me (1pt. min.). @ -None done What testing was considered but not performed or refused? (CT, X-rays, U/S, labs)? Why? @ -None What meds were considered but not given or refused? Why? @ -None Did you discuss the management of the patient with other professionals (professionals i.e. , PA, AIR BRAKE TESTER, lab, RT, psych nurse, social service manager, assembly cleaner, teacher, security officer supervisor, medical case worker)? Give summary @ -I spoke with [facility]ist and they agreed to admit the patient admit the patient wrote admitting orders Was smoking cessation discussed for >3mins.? @ -No Was critical care preformed (if so, how long)? @ -No Were there social determinants of health that impacted care today? How? (Homelessness, low income, unemployed, alcoholism, drug addiction, transportation, low edu. Level, literacy, decrease access to med. care, assisted, rehab)? @ -No Was there de-escalation of care discussed even if they declined (Discuss DNR or withdrawal of care, Hospice)? DNR status @ -No What co-morbidities impacted this encounter? (DM, HTN, Smoking, COPD, CAD, Cancer, CVA, ARF, Chemo, Hep., AIDS, mental health diagnosis, sleep apnea, morbid obesity)? @ -None Was patient admitted / discharged? Hospital course, mention meds given and route, prescriptions, significant lab abnormalities, going to OR and other pertinent info. @ -Patient was warmed up a little and given some fluids and shortly thereafter he was alert and oriented x 4 he stated he has not drank since yesterday which is very unusual. Patient had a little bit of the shakes the patient was given Ativan. Patient then spiked to 102 fever so patient was started empirically on Rocephin. Patient had a creatinine of over 3 and a troponin of 2.39 patient's sodium was elevated. Patient was given a liter of fluid and started on D5.45. Patient was started heparin because of the elevated troponin. Patient did not complain of any chest pain at this time. I spoke with [facility] hospitalist they agreed admit the patient admit the patient I consulted nephrology and cardiology. Undiagnosed new problem with uncertain prognosis? @ -No Drug Therapy requiring intensive monitoring for toxicity (Heparin, Nitro, In sulin, Cardizem)? @ -No Were any procedures done? @ -No Diagnosis/symptom? @ -Alcohol withdrawal Acute, or Chronic, or Acute on Chronic? @ -Acute Uncomplicated (without systemic symptoms) or Complicated (systemic symptoms)? @ -Complicated Side effects of treatment? @ -No Exacerbation, Progression, or Severe Exacerbation? @ -No Poses a threat to life or bodily function? How? (Chest pain, [place], [place], pneumonia, PE, COPD, DKA, ARF, appy, cholecystitis, CVA, Diverticulitis, Homicidal, Suicidal, threat to staff... and all critical care pts) @ -No Diagnosis/symptom? @ -Acute renal failure Acute, or Chronic, or Acute on Chronic? @ -Acute Uncomplicated (without systemic symptoms) or Complicated (systemic symptoms)? @ -Complicated Side effects of treatment? @ -None Exacerbation, Progression, or Severe Exacerbation] @ -No Poses a threat to life or bodily function? @ -Yes this could lead to electrolyte abnormalities and arrhythmias and possible Diagnosis/symptom? @ -NSTEMI Acute, or Chronic, or Acute on Chronic? @ -Acute Uncomplicated (without systemic symptoms) or Complicated (systemic symptoms)? @ -Complicated Side effects of treatment? @ -None Exacerbation, Progression, or Severe Exacerbation] @ -No Poses a threat to life or bodily function? @ -Yes this could lead to poor perfusion and endorgan dysfunction Diagnosis/symptom? @ -Leukocytosis with fever Acute, or Chronic, or Acute on Chronic? @ -Acute Uncomplicated (without systemic symptoms) or Complicated (systemic symptoms)? @ -Complicated Side effects of treatment? @ -None Exacerbation, Progression, or Severe Exacerbation] @ -No Poses a threat to life or bodily function? @ -Yes this could lead to sepsis and Diagnosis/symptom? @ -Hypernatremia Acute, or Chronic, or Acute on Chronic? @ -Acute Uncomplicated (without systemic symptoms) or Complicated (systemic symptoms)? @ -Complicated Side effects of treatment? @ -None Exacerbation, Progression, or Severe Exacerbation] @ -No Poses a threat to life or bodily function? @ -No Patient's lactic was 4 however I do not believe this is all from infection first of all I am unable to find a source of infection at this time. Patient is also extremely dehydrated and he has acute renal failure which could also be causing his lactic acid to elevate (Rony Mohan) - Lab Data Lab Results 01/04/24 01/04/24 01/04/24 Range/Units 12:12 12:12 12:12 WBC 22.0 H (3.8-10.6) k/uL RBC 5.88 (4.30-5.90) m/uL Hgb 16.4 D (13.0-17.5) gm/dL Hct 49.8 (39.0-53.0) % MCV 84.7 (80.0-100.0) fL MCH 27.9 (25.0-35.0) pg MCHC 32.9 (31.0-37.0) g/dL RDW 16.0 H (11.5-15.5) % Plt Count 274 (150-450) k/uL MPV 9.0 Neutrophils % 89 % Lymphocytes % 2 % Monocytes % 7 % Eosinophils % 0 % Basophils % 0 % Neutrophils # 19.7 H (1.3-7.7) k/uL Lymphocytes # 0.4 L (1.0-4.8) k/uL Monocytes # 1.6 H (0-1.0) k/uL Eosinophils # 0.0 (0-0.7) k/uL Basophils # 0.1 (0-0.2) k/uL ESR (0-15) mm/Hr PT 10.7 (10.0-12.5) sec INR 1.0 (<1.2) APTT 22.0 (22.0-30.0) sec Sodium 152 H (137-145) mmol/L Potassium 5.1 (3.5-5.1) mmol/L Chloride 116 H (98-107) mmol/L Carbon Dioxide 11 L (22-30) mmol/L Anion Gap 25 mmol/L BUN 38 H (9-20) mg/dL Creatinine 3.47 H (0.66-1.25) mg/dL Est GFR (CKD-EPI)AfAm 25 (>60 ml/min/1.73 sqM) Est GFR (CKD-EPI)NonAf 21 (>60 ml/min/1.73 sqM) Glucose 105 H (74-99) mg/dL Plasma Lactic Acid Sohail (0.7-2.0) mmol/L Calcium 8.6 (8.4-10.2) mg/dL Magnesium 3.2 H (1.6-2.3) mg/dL Total Bilirubin 0.7 (0.2-1.3) mg/dL AST 1723 H (17-59) U/L ALT 399 H (4-49) U/L Alkaline Phosphatase 99 (38-126) U/L Troponin I (0.000-0.034) ng/mL Total Protein 8.9 H (6.3-8.2) g/dL Albumin 5.1 H (3.5-5.0) g/dL Procalcitonin (0.02-0.09) ng/mL Serum Alcohol <10 mg/dL Influenza Type A (PCR) (Not Detectd) Influenza Type B (PCR) (Not Detectd) RSV (PCR) (Not Detectd) SARS-CoV-2 (PCR) (Not Detectd) 01/04/24 01/04/24 01/04/24 Range/Units 12:12 12:12 12:12 WBC (3.8-10.6) k/uL RBC (4.30-5.90) m/uL Hgb (13.0-17.5) gm/dL Hct (39.0-53.0) % MCV (80.0-100.0) fL MCH (25.0-35.0) pg MCHC (31.0-37.0) g/dL RDW (11.5-15.5) % Plt Count (150-450) k/uL MPV Neutrophils % % Lymphocytes % % Monocytes % % Eosinophils % % Basophils % % Neutrophils # (1.3-7.7) k/uL Lymphocytes # (1.0-4.8) k/uL Monocytes # (0-1.0) k/uL Eosinophils # (0-0.7) k/uL Basophils # (0-0.2) k/uL ESR 27 H (0-15) mm/Hr PT (10.0-12.5) sec INR (<1.2) APTT (22.0-30.0) sec Sodium (137-145) mmol/L Potassium (3.5-5.1) mmol/L Chloride (98-107) mmol/L Carbon Dioxide (22-30) mmol/L Anion Gap mmol/L BUN (9-20) mg/dL Creatinine (0.66-1.25) mg/dL Est GFR (CKD-EPI)AfAm (>60 ml/min/1.73 sqM) Est GFR (CKD-EPI)NonAf (>60 ml/min/1.73 sqM) Glucose (74-99) mg/dL Plasma Lactic Acid Sohail (0.7-2.0) mmol/L Calcium (8.4-10.2) mg/dL Magnesium (1.6-2.3) mg/dL Total Bilirubin (0.2-1.3) mg/dL AST (17-59) U/L ALT (4-49) U/L Alkaline Phosphatase (38-126) U/L Troponin I 2.390 H* (0.000-0.034) ng/mL Total Protein (6.3-8.2) g/dL Albumin (3.5-5.0) g/dL Procalcitonin 45.90 H (0.02-0.09) ng/mL Serum Alcohol mg/dL Influenza Type A (PCR) (Not Detectd) Influenza Type B (PCR) (Not Detectd) RSV (PCR) (Not Detectd) SARS-CoV-2 (PCR) (Not Detectd) 01/04/24 01/04/24 Range/Units 13:44 13:44 WBC (3.8-10.6) k/uL RBC (4.30-5.90) m/uL Hgb (13.0-17.5) gm/dL Hct (39.0-53.0) % MCV (80.0-100.0) fL MCH (25.0-35.0) pg MCHC (31.0-37.0) g/dL RDW (11.5-15.5) % Plt Count (150-450) k/uL MPV Neutrophils % % Lymphocytes % % Monocytes % % Eosinophils % % Basophils % % Neutrophils # (1.3-7.7) k/uL Lymphocytes # (1.0-4.8) k/uL Monocytes # (0-1.0) k/uL Eosinophils # (0-0.7) k/uL Basophils # (0-0.2) k/uL ESR (0-15) mm/Hr PT (10.0-12.5) sec INR (<1.2) APTT (22.0-30.0) sec Sodium (137-145) mmol/L Potassium (3.5-5.1) mmol/L Chloride (98-107) mmol/L Carbon Dioxide (22-30) mmol/L Anion Gap mmol/L BUN (9-20) mg/dL Creatinine (0.66-1.25) mg/dL Est GFR (CKD-EPI)AfAm (>60 ml/min/1.73 sqM) Est GFR (CKD-EPI)NonAf (>60 ml/min/1.73 sqM) Glucose (74-99) mg/dL Plasma Lactic Acid Sohail 4.0 H* (0.7-2.0) mmol/L Calcium (8.4-10.2) mg/dL Magnesium (1.6-2.3) mg/dL Total Bilirubin (0.2-1.3) mg/dL AST (17-59) U/L ALT (4-49) U/L Alkaline Phosphatase (38-126) U/L Troponin I (0.000-0.034) ng/mL Total Protein (6.3-8.2) g/dL Albumin (3.5-5.0) g/dL Procalcitonin (0.02-0.09) ng/mL Serum Alcohol mg/dL Influenza Type A (PCR) Not Detected (Not Detectd) Influenza Type B (PCR) Not Detected (Not Detectd) RSV (PCR) Detected A (Not Detectd) SARS-CoV-2 (PCR) Not Detected (Not Detectd) Critical Care Time Critical Care Time: Yes Total Critical Care Time: 35 <Rony Mohan - Last Filed: 01/04/24 14:51> Disposition Time of Disposition: 14:12 <Rony Mohan - Last Filed: 01/04/24 14:51> <Ranulfo Healy - Last Filed: 01/04/24 22:21> Clinical Impression: Alcohol withdrawal, Acute renal failure, NSTEMI (non-ST elevated myocardial infarction), Hypernatremia, Fever with leukocytosis and leukocyte count greater than or equal to 20,000 Disposition: ADMITTED IP TO THIS HOSP
--- NOTE | 2024-01-04 13:44 | CT ---
EXAMINATION TYPE: CT brain cspine wo con DATE OF EXAM: 01/04/2024 COMPARISON: 12/31/2023. HISTORY: Altered mental status and hypothermia. CT DLP: 1386.3 mGycm Automated exposure control for dose reduction was used. TECHNIQUE: CT scan of the head and cervical spine are performed without contrast. FINDINGS: There is no acute intracranial hemorrhage, mass effect, or midline shift identified. The ventricles and sulci are within normal limits in size. The globes are intact. There is increased ret ention cysts and/or polyps with mucosal thickening in the maxillary sinuses bilaterally. There is als o mucosal thickening seen within the right ethmoid air cells. Mastoid air cells are clear. This is no t significantly changed since the previous evaluation.. Cervical spine is visualized in its entirety from C1 through upper thoracic levels and demonstrates s atisfactory alignment without evidence of acute fracture or dislocation. Prevertebral soft tissue ap pears within normal limits. The C1-C2 articulation is unremarkable. IMPRESSION: 1. There is no acute fracture or dislocation evident in the cervical spine. 2. No acute intracranial hemorrhage, mass effect, or midline shift is seen. 3. Unchanged sinus disease.
[2024-01-04] MEDS: LORazepam 2 MG/ML INJ IV STA (13:49)
[2024-01-04 13:51] LABS: AST 1723 U/L (17-59)
[2024-01-04] MEDS: THIAMINE 100 MG/ML 2 ML VIAL IM STA ×2 (13:54→14:33)
[2024-01-04] MEDS: DEXTROSE 5%-0.45% NACL 1,000 ML IV ONE (13:54)
[2024-01-04] MEDS: cefTRIAXone IN SWFI 1,000 MG/10 ML SYRINGE IVP STA (14:09)
[2024-01-04] MEDS ORDERED: NITROGLYCERIN SL TABS 0.4 MG TAB SUBLINGUAL PRN (14:13)
--- NOTE | 2024-01-04 14:34 | P.HPIM ---
History of Present Illness H&P Date: 01/04/24 History of present illness; patient is a 38-year-old gentleman past medical significant for alcohol abuse, liver disease who presented to the ER for altered mental status. Patient has a history of alcohol abuse and has multiple admissions to this hospital for alcohol detox. Patient was brought in the ED by EMS after being found lying facedown in snow. There was no obvious sign of any trauma. Patient was unable to respond to any questions. EMS brought him immediately to the ER Initial lab work done in the ER showed WBC 22, hemoglobin 16.4, platelet count 274, sodium 152, potassium 5.1, BUN 38, creatinine 3.47, glucose 105, bilirubin 0.7, AST 1723, ALT 399, troponin 2.39 EKG done in the ER showed heart rate of 125, no ST segment elevation or depression seen, no T-wave inversions seen. Chest x-ray done in the ER showed no acute cardiopulmonary process CT head done showed no acute intracranial process CT cervical spine negative for any acute fracture or dislocation Patient admitted to internal medicine service. On my interview with patient, patient was much more responsive, kept on asking about getting soda and water. Stated that he has been laying on the ground for more than 15 hours. Patient is currently running a fever. Denies any chest pain or shortness of breath. Complaining of generalized body aches REVIEW OF SYSTEMS: CONSTITUTIONAL: As mentioned above HEENT: No recent visual problems or hearing problems. Denied any sore throat. CARDIOVASCULAR: No chest pain, orthopnea, PND, no palpitations, no syncope. PULMONARY: No shortness of breath, no cough, no hemoptysis. GASTROINTESTINAL: No diarrhea, no nausea, no vomiting, no abdominal pain. NEUROLOGICAL: No headaches, no weakness, no numbness. HEMATOLOGICAL: Denies any bleeding or petechiae. GENITOURINARY: Denies any burning micturition, frequency, or urgency. MUSCULOSKELETAL/RHEUMATOLOGICAL: Denies any joint pain, swelling, or any muscle pain. ENDOCRINE: Denies any polyuria or polydipsia. The rest of the 14-point review of systems is negative. PHYSICAL EXAMINATION: GENERAL: The patient is alert, disheveled and chronically ill looking HEENT: Pupils are round and equally reacting to light. EOMI. No scleral icterus. No conjunctival pallor. Normocephalic, atraumatic. No pharyngeal erythema. No thyromegaly. CARDIOVASCULAR: S1 and S2 present. No murmurs, rubs, or gallops. Tachycardic PULMONARY: Coarse breath sound bilaterally, expiratory rhonchi audible ABDOMEN: Soft, nontender, nondistended, normoactive bowel sounds. No palpable organomegaly. MUSCULOSKELETAL: No joint swelling or deformity. EXTREMITIES: No cyanosis, clubbing, or pedal edema. NEUROLOGICAL: Gross neurological examination did not reveal any focal deficits. SKIN: No rashes. Assessment and plan Acute metabolic encephalopathy Acute kidney injury Hypothermia Hypernatremia Leukocytosis NSTEMI Acute transaminitis Fall History of alcohol abuse History of depression Monitor vital signs Monitor CBC Monitor CMP Continue telemetry monitoring Trend troponin. Ordered blood cultures Ordered stat UA Ordered 2D echo Ordered ultrasound of Abdominal Ordered ultrasound of the kidneys Start pharmacy dosed heparin Strict I's and O's, daily weights Continue IV fluids Continue CIWA protocol continue high-dose thiamine and folic acid Avoid nephrotoxic agent Avoid hepatotoxic agents Continue IV Rocephin Consult cardiology Consult nephrology Consult ID Labs and medication were reviewed.. Continue same treatment. Continue with symptomatic treatment. Resume home medication. Monitor labs and vitals. DVT and GI prophylaxis. Further recommendations as per clinical course of the patient Dictation was produced using [employer] dictation software. please excuse any grammatical, word or spelling errors. Past Medical History Past Medical History: GERD/Reflux, Hypertension, Liver Disease, Skin Disorder Additional Past Medical History / Comment(s): Hepatitis C, Pancreatitis, DDD, back pain, bilateral carpel tunnel syndrome. In the past has reported that he has heart disease that was found when he had kidney problems but he denies having a stress test or cardiac catheterization. History of Any Multi-Drug Resistant Organisms: None Reported MDRO Source:: unknown Past Surgical History: No Surgical Hx Reported, Unable to Obtain Additional Past Surgical History / Comment(s): Pt states he has had numerous "cysts" removed from where he injected IV drugs. Past Anesthesia/Blood Transfusion Reactions: No Reported Reaction, Unable to Obtain Additional Past Anesthesia/Blood Transfusion Reaction / Comment(s): In the past pt reported that he has never had surgery Past Psychological History: Anxiety, Bipolar, Depression, Schizophrenia Smoking Status: Current every day smoker Past Alcohol Use History: Abuse Past Drug Use History: Marijuana, Methamphetamine, Opiates - Past Family History Mother Family Medical History: Unable to Obtain, Rheumatoid Arthritis (RA) Additional Family Medical History / Comment(s): Mother is . Father Family Medical History: Coronary Artery Disease (CAD) Medications and Allergies Home Medications Medication Instructions Recorded Confirmed Type Haloperidol Decanoate [Haldol D] 200 mg IM Q14D 1 Days #1 each 10/20/23 01/04/24 Rx QUEtiapine [SEROquel] 25 mg PO BID 30 Days #60 tab 12/11/23 01/04/24 Rx Thiamine [Vitamin B-1] 100 mg PO DAILY 30 Days #30 tab 12/11/23 01/04/24 Rx buPROPion XL [Wellbutrin XL] 150 mg PO DAILY 30 Days #30 tab 12/11/23 01/04/24 Rx busPIRone HCl [Buspar] 7.5 mg PO BID 30 Days #60 tab 12/11/23 01/04/24 Rx Allergies Allergy/AdvReac Type Severity Reaction Status Date / Time flea Allergy Rash/Hives Uncoded 01/04/24 13:20 Physical Exam Vitals: Vital Signs Temp Pulse Resp BP Pulse Ox 01/04/24 13:55 102.0 F H 116 H 34 H 155/93 93 L 01/04/24 13:04 102.6 F H 128 H 36 H 106/41 95 01/04/24 12:15 98.3 F 01/04/24 12:10 99.7 F H 134 H 22 93 L 01/04/24 11:59 97.3 F L 124 H 20 119/91 94 L Intake and Output 01/03/24 01/04/24 01/04/24 22:59 06:59 14:59 Output Total 0 Balance 0 Output: Urine 0 Uretheral (Cat) 0 Other: Weight 81.647 kg Results CBC & Chem 7: 01/04/24 12:12 01/04/24 12:12 Labs: Abnormal Lab Results - Last 24 Hours (Table) 01/04/24 01/04/24 01/04/24 Range/Units 12:12 12:12 12:12 WBC 22.0 H (3.8-10.6) k/uL RDW 16.0 H (11.5-15.5) % Neutrophils # 19.7 H (1.3-7.7) k/uL Lymphocytes # 0.4 L (1.0-4.8) k/uL Monocytes # 1.6 H (0-1.0) k/uL Sodium 152 H (137-145) mmol/L Chloride 116 H (98-107) mmol/L Carbon Dioxide 11 L (22-30) mmol/L BUN 38 H (9-20) mg/dL Creatinine 3.47 H (0.66-1.25) mg/dL Glucose 105 H (74-99) mg/dL Magnesium 3.2 H (1.6-2.3) mg/dL AST 1723 H (17-59) U/L ALT 399 H (4-49) U/L Troponin I 2.390 H* (0.000-0.034) ng/mL Total Protein 8.9 H (6.3-8.2) g/dL Albumin 5.1 H (3.5-5.0) g/dL
[2024-01-04] MEDS: HEPARIN SOD,PORK IN 0.45% NACL 25,000 UNIT in 0.45% NACL 1 250ML.BAG IV SCH (14:51)
[2024-01-04] MEDS: HEPARIN SODIUM 1,000 UN/ML (10ML VL) IV ONE (14:51)
[2024-01-04] MEDS: SODIUM CHLORIDE 0.9% 1,000 ML IV SCH (14:52)
[2024-01-04] MEDS: ASPIRIN 81 MG PO STA (14:54)
[2024-01-04] MEDS: SODIUM CHLORIDE 0.9% 500 ML 500 ML IV ONE ×2 (14:55→14:56)
[2024-01-04 15:34] LABS: Appearance,Urine Turbid (Clear); Bilirubin,Urine Negative (Negative); Blood,Urine Large (Negative); Color,Urine Dark Brown; Glucose,Urine (UA) Negative (Negative); Ketones,Urine Negative (Negative); Leukocyte Esterase,Urine Negative (Negative); Nitrite,Urine Negative (Negative); PH, Urine 5.5 (5.0-8.0); Protein,Urine 2+ (Negative); RBC,Urine >182 /hpf (0-5); Specific Gravity,Urine 1.019 (1.001-1.035); Urobilinogen,Urine <2.0 mg/dL (<2.0)
[2024-01-04 15:37] LABS: Creatinine,Urine Random 180.3 mg/dL
[2024-01-04] MEDS: LORazepam 1 MG TAB PO PRN ×3 (15:41→21:55)
[2024-01-04] MEDS: IPRATROPIUM-ALBUTEROL 3 ML NEB INHALATION PRN (19:56)
[2024-01-04] MEDS: DEXTROSE 5% IN WATER 1,000 ML with SODIUM BICARB (1 MEQ/ML) 100 ML IV SCH (20:00)
[2024-01-04 20:34] LABS: African American GFR (CKD) 25 (>60 ml/min/1.73 sqM); Anion Gap 19 mmol/L; Blood Urea Nitrogen 51 mg/dL (9-20); Carbon Dioxide 12 mmol/L (22-30); Chloride 109 mmol/L (98-107); Glucose 108 mg/dL (74-99); Non-African American GFR(CKD) 21 (>60 ml/min/1.73 sqM); Sodium 140 mmol/L (137-145)
[2024-01-04] MEDS: METOPROLOL TARTRATE 12.5 MG TAB PO SCH (20:34)
--- NOTE | 2024-01-04 20:52 | CONS ---
CONSULTATION CHIEF COMPLAINT: Elevated troponins. HISTORY OF PRESENT ILLNESS: Wilbert is a 38-year-old gentleman who is homeless, has history of ETOH abuse, and alcoholic liver disease who initially presented to hospital with altered mental status. The patient apparently missed his mental health appointment who went looking for him and found that he was lying face down in snow. It is unclear as to how long he was on it, almost seems to be more than 15-18 hours. He was brought to the hospital. Initially, he was confused, did not have any external injuries. He underwent extensive workup including CT scan of the spine and head that all came back unremarkable and gradually he became more alert and oriented. His AST is elevated at 1700, ALT is 399, and he has new-onset acute renal failure with a creatinine of 3.4. His creatinine was normal just a week ago. His troponin is elevated at 2.3. We have been consulted for the same. At the time of my evaluation of the patient in the emergency room, he complains of generalized body ache. An EKG on this admission revealed sinus tachycardia with very prominent T-waves. There is no prior history of coronary artery disease or congestive heart failure. MEDICATIONS AT HOME: 1. BuSpar. 2. Wellbutrin. 3. Seroquel. 4. Haldol. ALLERGIES: As charted. FAMILY HISTORY, SOCIAL HISTORY, REVIEW OF SYSTEMS: I am not able to obtain from the patient who is sleepy, but responds to questions but does not seem to be in a position to have extensive discussions at this time. PHYSICAL EXAMINATION: GENERAL: He appears short of breath, stable hemodynamically. NECK: There is no jugular venous distention. CHEST: Reveals good air entry bilaterally. HEART: Reveals first and second heart sounds. No gallop. EXTREMITIES: Did not reveal any edema. Peripheral pulses are palpable. EKG is as described above. Troponins are elevated. LABORATORY DATA: Creatinine is elevated. ASSESSMENT AND PLAN: 1. Acute non ST-segment elevation WI. 2. Acute renal failure. 3. Altered mental status, improving at the moment. PLAN: I will treat the patient with IV heparin. Obtain a 2D echo and decide on further course of action based on how the symptoms evolve. MMODL / IJN: [id number] /
[2024-01-04] MEDS ORDERED: METOPROLOL TARTRATE 25 MG TAB PO SCH (21:00)
[2024-01-04] MEDS ORDERED: VANCOMYCIN IV PER PHARMACY 1 EACH MISC MISCELLANE PRN (21:15)
--- NOTE | 2024-01-04 21:24 | P.CONS ---
History of Present Illness - Reason for Consult Consult date: 01/04/24 Sepsis Requesting physician: Yuri Dee - Chief Complaint Unresponsive x 1 day - History of Present Illness Patient is a 38-year-old male with a past medical history of GERD for hypertension hepatitis C pancreatitis reflux history of alcoholism patient was brought into the ER by EMS after apparently the patient was noticed to be facedown in the snow when the EMS got him up he was unable to speak patient was hypothermic and subsequently brought into the ER for further evaluation on arrival to the ER patient was afebrile subsequently he did spike a fever of 102 .6 F patient was tachycardic and not hypotensive or hypoxic patient did have a white count of 22,000 with a left shift BUN/creatinine has been elevated liver isms are elevated as well as CK urine has been negative he tested positive for RSV chest x-ray was reported negative for acute infiltrate patient did receive a dose of Rocephin by the ER physician patient was admitted to the hospital infectious he was consulted for further management of antibiotic therapy, patient time of my evaluation not a very good historian is arousable when asked specifically for any headache chest pain or cough the patient has been denying no vomiting or diarrhea has been reported however overall the patient elevated good historian so most information has been extended from review of the chart Review of Systems Positive points has been mentioned in HPI complete review could not be obtained because of his underlying mental status Past Medical History Past Medical History: GERD/Reflux, Hypertension, Liver Disease, Skin Disorder Additional Past Medical History / Comment(s): Hepatitis C, Pancreatitis, DDD, back pain, bilateral carpel tunnel syndrome. In the past has reported that he has heart disease that was found when he had kidney problems but he denies having a stress test or cardiac catheterization. History of Any Multi-Drug Resistant Organisms: None Reported MDRO Source:: unknown Past Surgical History: No Surgical Hx Reported, Unable to Obtain Additional Past Surgical History / Comment(s): Pt states he has had numerous "cysts" removed from where he injected IV drugs. Past Anesthesia/Blood Transfusion Reactions: No Reported Reaction, Unable to Obtain Additional Past Anesthesia/Blood Transfusion Reaction / Comm: In the past pt reported that he has never had surgery Past Psychological History: Anxiety, Bipolar, Depression, Schizophrenia Smoking Status: Current every day smoker Past Alcohol Use History: Abuse Past Drug Use History: Marijuana, Methamphetamine, Opiates - Past Family History Mother Family Medical History: Unable to Obtain, Rheumatoid Arthritis (RA) Additional Family Medical History / Comment(s): Mother is . Father Family Medical History: Coronary Artery Disease (CAD) Medications and Allergies Home Medications Medication Instructions Recorded Confirmed Type Haloperidol Decanoate [Haldol D] 200 mg IM Q14D 1 Days #1 each 10/20/23 01/04/24 Rx Thiamine [Vitamin B-1] 100 mg PO DAILY 30 Days #30 tab 12/11/23 01/04/24 Rx buPROPion XL [Wellbutrin XL] 150 mg PO DAILY 30 Days #30 tab 12/11/23 01/04/24 Rx Aspirin 81 mg PO DAILY #30 tab 01/22/24 Rx Folic Acid 1 mg PO DAILY #30 tab 01/22/24 Rx Magnesium Oxide [Mag-Ox] 400 mg PO BID #60 tab 01/22/24 Rx Multivitamins, Thera [Multivitamin 1 each PO DAILY #30 tab 01/22/24 Rx (formulary)] QUEtiapine [SEROquel] 100 mg PO BID 30 Days #60 tab 01/22/24 Rx Sevelamer [Renvela] 800 mg PO TID-W/MEALS #90 tab 01/22/24 Rx amLODIPine [Norvasc] 5 mg PO BID #60 tab 01/22/24 Rx carvediloL [Coreg] 6.25 mg PO BID-W/MEALS #60 tab 01/22/24 Rx cloNIDine 0.2 MG/24HR PATCH 1 patch TRANSDERM Q7D 30 Days #3 01/22/24 Rx [Catapres-TTS] patch hydrALAZINE HCL [Apresoline] 50 mg PO TID 30 Days #90 tab 01/22/24 Rx Allergies Allergy/AdvReac Type Severity Reaction Status Date / Time flea Allergy Rash/Hives Uncoded 01/04/24 13:20 Physical Exam Vitals: Vital Signs Temp Pulse Resp BP Pulse Ox 01/04/24 14:30 113 H 38 H 151/105 95 01/04/24 13:55 102.0 F H 116 H 34 H 155/93 93 L 01/04/24 13:04 102.6 F H 128 H 36 H 106/41 95 01/04/24 12:15 98.3 F 01/04/24 12:10 99.7 F H 134 H 22 93 L 02/15/24 11:59 97.3 F L 124 H 20 119/91 94 L Intake and Output 01/03/24 01/04/24 01/04/24 22:59 06:59 14:59 Output Total 0 Balance 0 Output: Urine 0 Uretheral (Cat) 0 Other: Weight 81.647 kg GENERAL DESCRIPTION: Middle-aged male lying in bed, no distress. No tachypnea or accessory muscle of respiration use. HEENT: Shows Pallor , no scleral icterus. Oral mucous membrane is dry. NECK: Trachea central, no thyromegaly. LUNGS: Unlabored breathing. Clear to auscultation anteriorly. No wheeze or crac kle. HEART: S1, S2, regular rate and rhythm. No loud murmur ABDOMEN: Soft, no tenderness , guarding or rigidity, no organomegaly EXTREMITIES: No edema of feet. SKIN: No rash, no masses palpable. NEUROLOGICAL: The patient is lethargic orientation could not be determined no neck rigidity Results CBC & Chem 7: 01/22/24 13:00 01/22/24 13:00 Labs: Abnormal Lab Results - Last 24 Hours (Table) 01/04/24 01/04/24 01/04/24 Range/Units 12:12 12:12 12:12 WBC 22.0 H (3.8-10.6) k/uL RDW 16.0 H (11.5-15.5) % Neutrophils # 19.7 H (1.3-7.7) k/uL Lymphocytes # 0.4 L (1.0-4.8) k/uL Monocytes # 1.6 H (0-1.0) k/uL Sodium 152 H (137-145) mmol/L Chloride 116 H (98-107) mmol/L Carbon Dioxide 11 L (22-30) mmol/L BUN 38 H (9-20) mg/dL Creatinine 3.47 H (0.66-1.25) mg/dL Glucose 105 H (74-99) mg/dL Plasma Lactic Acid Sohail (0.7-2.0) mmol/L Magnesium 3.2 H (1.6-2.3) mg/dL AST 1723 H (17-59) U/L ALT 399 H (4-49) U/L Troponin I 2.390 H* (0.000-0.034) ng/mL Total Protein 8.9 H (6.3-8.2) g/dL Albumin 5.1 H (3.5-5.0) g/dL 01/04/24 Range/Units 13:44 WBC (3.8-10.6) k/uL RDW (11.5-15.5) % Neutrophils # (1.3-7.7) k/uL Lymphocytes # (1.0-4.8) k/uL Monocytes # (0-1.0) k/uL Sodium (137-145) mmol/L Chloride (98-107) mmol/L Carbon Dioxide (22-30) mmol/L BUN (9-20) mg/dL Creatinine (0.66-1.25) mg/dL Glucose (74-99) mg/dL Plasma Lactic Acid Sohail 4.0 H* (0.7-2.0) mmol/L Magnesium (1.6-2.3) mg/dL AST (17-59) U/L ALT (4-49) U/L Troponin I (0.000-0.034) ng/mL Total Protein (6.3-8.2) g/dL Albumin (3.5-5.0) g/dL Assessment and Plan (1) Sepsis Status: Acute Code(s): A41.9 - SEPSIS, UNSPECIFIED ORGANISM SNOMED Code(s): 22333058 Plan: 1patient presented hospital with episode of unresponsiveness by the EMS patient did have features of sepsis running a fever did have elevated white count, initial workup including a chest x-ray and UA has been negative the patient abdominal was soft on clinical examination and there was no evidence of any cellulitis with a question of 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 infection such as meningitis not entirely excluded 2-patient did have elevated creatinine high risk of nephrotoxicity from investigation as well as medication 3-Case has been discussed with the ER physician patient needs LP and fluid should be sent for Gram stain protein glucose cell count differential and viral PCR 4-patient will be empirically started on Rocephin and vancomycin pending workup to be completed while watching his kidney function closely, patient will be candidate for steroids and has already received antibiotics Prognosis remains to be guarded We will follow on clinical condition and cultures to further adjust medication if needed Thank you for this consultation we will follow the patient along with you Dictation was produced using dragon dictation software. please excuse any grammatical, word or spelling errors. Time with Patient: Greater than 30
--- NOTE | 2024-01-04 21:35 | US ---
EXAMINATION TYPE: US abdomen comp/pelvis limited DATE OF EXAM: 01/04/2024 COMPARISON: NONE CLINICAL INDICATION: Male, 38 years old with history of Abdominal pain, elevated LFTs; Patient found hypothermic; Limited response from patient EXAM MEASUREMENTS: Liver Length: 17.6 cm Gallbladder Wall: 0.2 cm CBD: 0.3 cm Spleen: 8.4 cm Right Kidney: 10.0 x 5.8 x 6.0 cm Left Kidney: 10.5 x 6.0 x 4.6 cm Post Void Residual: NA mL Pancreas: Obscured by bowel gas Liver: Borderline enlarged at 17.6 cm. Otherwise, wnl as vis Gallbladder: wnl CBD: wnl Spleen: Limited detailed parenchymal assessment. Normal size. Right Kidney: wnl Left Kidney: Very limited detailed assessment. No obvious hydronephrosis. Upper IVC: wnl Abd Aorta: Obscured by overlying bowel gas Bladder: Echogenic area superior to Cat, possibly air introduced during catheterization. The bladde r is collapsed. Bilateral Jets Seen Not able to assess Normal Post Void Residual (normal less than 50ml) NA IMPRESSION: Exam limitations as above. No gallstones or biliary ductal dilatation. Borderline hepatom egaly at 17.6 cm. No obvious hydronephrosis. Cat catheter in place. Echogenic material above the Fo zana catheter is of unclear etiology, possibly air introduced during the instrumentation.
[2024-01-04] MEDS: DEXTROSE 5% IN WATER 1,000 ML with SODIUM BICARB (1 MEQ/ML) 150 ML IV SCH (22:02)
[2024-01-05] MEDS: HEPARIN SODIUM 1,000 UN/ML (10ML VL) IV PRN (00:11)
--- NOTE | 2024-01-05 00:14 | CA ---
Transthoracic Echo Report Name: Wilbert Rosenthal Age: 38 Gender: M : 1985 Exam Date: 01/04/2024 15:41 Exam Location: [facility] Ht (in): 68 Wt (lb): 180 Ordering Physician: Yuri Dee MD Attending/Referring Phys: Paper Folding Machine Operator Nicholas Kimbrough RD Procedure CPT: Indications: elevated troponin Cardiac Hx: Technical Quality: Fair Contrast 1: Total Dose (mL): Contrast 2: Total Dose (mL): MEASUREMENTS (Male / Female) Normal Values 2D ECHO LV Diastolic Diameter PLAX 4.0 cm 4.2 - 5.9 / 3.9 - 5.3 cm LV Systolic Diameter PLAX 3.0 cm IVS Diastolic Thickness 0.9 cm 0.6 - 1.0 / 0.6 - 0.9 cm LVPW Diastolic Thickness 1.0 cm 0.6 - 1.0 / 0.6 - 0.9 cm LV Relative Wall Thickness 0.5 RV Internal Dim ED PLAX 2.6 cm LVOT Diameter 2.3 cm Aortic Root Diameter 3.1 cm LV Diastolic Volume MOD BP 49.7 cm??? 67 - 155 / 56 - 104 cm??? LV Systolic Volume MOD BP 28.8 cm??? 22 - 58 / 19 - 49 cm??? LV Ejection Fraction MOD BP 42.1 % >= 55 % LV Cardiac Index MOD BP 1120.9 cm???/min???m??? LV Diastolic Volume MOD 4C 57.5 cm??? LV Systolic Volume MOD 4C 26.1 cm??? LV Ejection Fraction MOD 4C 54.6 % LV Cardiac Index MOD 4C 1681.3 cm???/min???m??? LV Diastolic Length 4C 7.1 cm LV Systolic Length 4C 6.0 cm LV Diastolic Volume MOD 2C 42.8 cm??? LV Systolic Volume MOD 2C 28.4 cm??? LV Ejection Fraction MOD 2C 33.6 % LV Cardiac Index MOD 2C 771.5 cm???/min???m??? LV Diastolic Length 2C 7.0 cm LV Systolic Length 2C 6.8 cm LA Volume 33.0 cm??? 18 - 58 / 22 - 52 cm??? LA Volume Index 16.6 cm???/m??? 16 - 28 cm???/m??? DOPPLER AV Peak Velocity 112.6 cm/s AV Peak Gradient 5.1 mmHg AV Mean Velocity 68.8 cm/s AV Mean Gradient 2.2 mmHg AV Velocity Time Integral 18.3 cm MV Peak Velocity 74.8 cm/s MV Peak Gradient 2.2 mmHg MV Mean Velocity 51.1 cm/s MV Mean Gradient 1.2 mmHg MV Velocity Time Integral 19.6 cm Mitral E Point Velocity 51.4 cm/s Mitral A Point Velocity 61.6 cm/s Mitral E to A Ratio 0.8 MV Deceleration Time 155.9 ms MV E' Velocity 4.9 cm/s Mitral E to MV E' Ratio 10.6 PV Peak Velocity 65.5 cm/s PV Peak Gradient 1.7 mmHg FINDINGS Left Ventricle Normal LV size and wall thickness. Left ventricular ejection fraction is estimated at 50-55 %. Right Ventricle Normal right ventricular size. Right Atrium Normal right atrial size. Left Atrium Normal left atrial size. Mitral Valve Structurally normal mitral valve. No mitral stenosis. No mitral regurgitation. Aortic Valve Aortic valve not well visualized. No aortic valve stenosis or regurgitation. Tricuspid Valve Tricuspid valve not well visualized. Trace TR. Pulmonic Valve Pulmonic valve not well visualized. No pulmonic regurgitation. Pericardium Normal pericardium. Aorta Normal size aortic root. CONCLUSIONS Technically difficult study Left ventricular ejection fraction 50-55% No mitral regurgitation Trace tricuspid regurgitation Previewed by: Dr. Aj Clay DO (Electronically Signed) Final Date: 05 January 2024 00:13
[2024-01-05] MEDS: VANCOMYCIN 1,500 MG in SODIUM CHLORIDE 0.9% 500 ML 500 ML IVPB ONE (00:16)
[2024-01-05 00:56] LABS: Glucose,CSF 70 mg/dL (40-70); Total Protein,CSF 43 mg/dL (12-60)
[2024-01-05 01:48] LABS: Appearance,CSF Clear; CSF Tube Number 3; CSF Tube Volume 1.3; Nucleated Cells, CSF 0 u/L (0-5); Red Blood Cell,CSF 14 u/L (0-10)
[2024-01-05 01:49] LABS: Red Blood Cell, CSF Crenated 0 %; Red Blood Cell, CSF Fresh 100 %
[2024-01-05 03:09] LABS: Glucose,Whole Blood 98 mg/dL (70-110)
[2024-01-05] MEDS: HYDROmorphone 0.5 MG/0.5 ML SYRINGE IVP STA (04:01)
[2024-01-05] MEDS: LORazepam 0.5 MG TAB PO PRN (04:25)
[2024-01-05] MEDS: DEXMEDETOMIDINE/0.9% NACL(PMX) 400 MCG in EMPTY BAG 1 BAG IV SCH (05:55)
[2024-01-05] MEDS: DEXAMETHASONE SOD PHOSPHATE 10 MG/ML 1 ML VIAL IVP STA (05:58)
[2024-01-05 06:48] LABS: ALT 592 U/L (4-49); African American GFR (CKD) 21 (>60 ml/min/1.73 sqM); Albumin 3.3 g/dL (3.5-5.0); Alkaline Phosphatase 71 U/L (38-126); Anion Gap 14 mmol/L; Blood Urea Nitrogen 60 mg/dL (9-20); Carbon Dioxide 16 mmol/L (22-30); Chloride 102 mmol/L (98-107); Glucose 103 mg/dL (74-99); Magnesium 2.2 mg/dL (1.6-2.3); Non-African American GFR(CKD) 18 (>60 ml/min/1.73 sqM); Potassium 3.8 mmol/L (3.5-5.1); Sodium 132 mmol/L (137-145); Total Bilirubin 0.5 mg/dL (0.2-1.3)
[2024-01-05 06:52] LABS: INR 1.1 (<1.2); Partial Thromboplastin Time 48.1 sec (22.0-30.0); Prothrombin Time 11.7 sec (10.0-12.5)
[2024-01-05 07:03] LABS: Basophils % (A) 0 %; Eosinophils % (A) 0 %; HCT 36.3 % (39.0-53.0); Lymphocytes # (A) 0.8 k/uL (1.0-4.8); Lymphocytes % (A) 8 %; MCH 27.1 pg (25.0-35.0); MCHC 32.5 g/dL (31.0-37.0); MCV 83.5 fL (80.0-100.0); Mean Platelet Volume 9.6; Monocytes # (A) 0.5 k/uL (0-1.0); Monocytes % (A) 5 %; Neutrophils % (A) 85 %; Platelet Count 137 k/uL (150-450); RBC 4.35 m/uL (4.30-5.90); RDW 15.9 % (11.5-15.5); WBC 10.5 k/uL (3.8-10.6)
[2024-01-05 07:07] LABS: HGB 11.8 gm/dL (13.0-17.5)
[2024-01-05 07:18] LABS: AST 4452 U/L (17-59)
[2024-01-05] MEDS: LORazepam 2 MG/ML INJ IV PRN ×3 (08:36→18:09)
[2024-01-05] MEDS: ASPIRIN 325 MG TAB PO SCH (08:36)
[2024-01-05] MEDS: THIAMINE 100 MG TAB PO SCH (09:01)
[2024-01-05] MEDS: FUROSEMIDE 10 MG/ML 10 ML VIAL IV STA (09:41)
[2024-01-05] MEDS: CLEVIDIPINE BUTYRATE 25 MG in EMPTY BAG 1 BAG IV SCH (09:41)
[2024-01-05 10:38] LABS: Amphetamine Screen,Urine Detected (NotDetected); Barbiturate Screen,Urine Detected (NotDetected); Benzodiazepines Screen,Urine Detected (NotDetected); Cocaine Screen,Urine Not Detected (NotDetected); Methadone Screen, Urine Not Detected (NotDetected); Opiate Screen,Urine Not Detected (NotDetected); Oxycodone Screen, Urine Not Detected (NotDetected); Phencyclidine Screen,Urine Not Detected (NotDetected); Tricyclic Antidepressant,Urine Not Detected (NotDetected); Urn Cannabinoid Scrn Not Detected (NotDetected)
[2024-01-05] MEDS: DAPTOmycin 500 MG in SODIUM CHLORIDE 0.9% 50 ML IVPB SCH (11:20)
[2024-01-05 11:35] LABS: Chol/HDL Ratio 1.84 Ratio; LDL Cholesterol,Calculated 28.6 mg/dL (0.0-131.0)
--- NOTE | 2024-01-05 11:42 | P.NPCON ---
History of Present Illness - Reason for Consult acute renal failure - History of Present Illness Reason for consultation: Acute kidney injury History of present illness: Patient is a 38-year-old male seen in renal consultation for acute kidney injury. Patient's baseline creatinine is near 0.5-0.6 from earlier this month and elevated at 3.47 this admission. It is up to 4.02 today. Urine output has been 5 to 10 cc an hour. Patient was found in the oliva outside. Unknown downtime. Patient CK level on admission was 92,751 antedates greater than 160,000. Patient is currently receiving isotonic sodium bicarb drip running at 200 cc an hour. He did receive 1 dose of IV Lasix this morning with no response in urine output. Patient tested positive for RSV. Additionally his blood cultures are positive for gram-positive cocci. He is on IV antibiotics. I do not see any NSAIDs or diuretics on his home medication list. Patient was initially hypothermic when found and then spiked a fever as high as 102.6 F this admission. This morning he was afebrile. Patient is a poor historian. Vital signs are stable. General: No acute distress. HEENT: Head exam is unremarkable. LUNGS: No audible rhonchi or wheezes. HEART: Rate and Rhythm are regular. ABDOMEN: No edema. Past Medical History Past Medical History: GERD/Reflux, Hypertension, Liver Disease, Skin Disorder Additional Past Medical History / Comment(s): Hepatitis C, Pancreatitis, DDD, back pain, bilateral carpel tunnel syndrome. In the past has reported that he has heart disease that was found when he had kidney problems but he denies having a stress test or cardiac catheterization. History of Any Multi-Drug Resistant Organisms: None Reported MDRO Source:: unknown Past Surgical History: No Surgical Hx Reported, Unable to Obtain Additional Past Surgical History / Comment(s): Pt states he has had numerous "cysts" removed from where he injected IV drugs. Past Anesthesia/Blood Transfusion Reactions: No Reported Reaction, Unable to Obtain Additional Past Anesthesia/Blood Transfusion Reaction / Comment(s): In the past pt reported that he has never had surgery Past Psychological History: Anxiety, Bipolar, Depression, Schizophrenia Smoking Status: Current every day smoker Past Alcohol Use History: Abuse Past Drug Use History: Marijuana, Methamphetamine, Opiates - Past Family History Mother Family Medical History: Unable to Obtain, Rheumatoid Arthritis (RA) Additional Family Medical History / Comment(s): Mother is . Father Family Medical History: Coronary Artery Disease (CAD) Medications and Allergies Home Medications Medication Instructions Recorded Confirmed Type Haloperidol Decanoate [Haldol D] 200 mg IM Q14D 1 Days #1 each 10/20/23 01/04/24 Rx QUEtiapine [SEROquel] 25 mg PO BID 30 Days #60 tab 12/11/23 01/04/24 Rx Thiamine [Vitamin B-1] 100 mg PO DAILY 30 Days #30 tab 12/11/23 01/04/24 Rx buPROPion XL [Wellbutrin XL] 150 mg PO DAILY 30 Days #30 tab 12/11/23 01/04/24 Rx busPIRone HCl [Buspar] 7.5 mg PO BID 30 Days #60 tab 12/11/23 01/04/24 Rx Allergies Allergy/AdvReac Type Severity Reaction Status Date / Time flea Allergy Rash/Hives Uncoded 01/04/24 13:20 Physical Exam Vitals: Vital Signs Temp Pulse Resp BP Pulse Ox 01/05/24 10:00 94 8 L 145/97 93 L 01/05/24 09:00 77 24 156/113 97 01/05/24 08:16 97 01/05/24 08:00 98.1 F 82 12 163/110 94 L 01/05/24 07:00 88 10 L 161/118 94 L 01/05/24 06:00 86 8 L 156/107 97 01/05/24 05:00 82 6 L 157/107 96 01/05/24 04:00 97.9 F 85 18 151/108 96 01/05/24 01:00 87 26 H 165/112 100 01/05/24 00:00 81 28 H 143/96 97 01/04/24 21:00 88 20 158/109 96 01/04/24 20:14 94 01/04/24 20:00 98.4 F 99 22 148/118 95 01/04/24 19:56 96 01/04/24 18:19 99.3 F 96 24 159/104 95 01/04/24 17:10 99.9 F H 104 H 20 165/109 93 L 01/04/24 16:55 99.9 F H 102 H 22 154/105 97 01/04/24 15:40 100.0 F H 106 H 24 177/98 95 01/04/24 15:15 110 H 22 162/98 94 L 01/04/24 15:01 100.0 F H 109 H 27 H 166/111 95 01/04/24 14:53 98.2 F 01/04/24 14:30 113 H 38 H 151/105 95 01/04/24 13:55 102.0 F H 116 H 34 H 155/93 93 L 01/04/24 13:04 102.6 F H 128 H 36 H 106/41 95 01/04/24 12:15 98.3 F 01/04/24 12:10 99.7 F H 134 H 22 93 L 01/04/24 11:59 97.3 F L 124 H 20 119/91 94 L Intake and Output 01/04/24 01/05/24 01/05/24 22:59 06:59 14:59 Intake Total 1136.876 984.119 Output Total 58 20 58 Balance -58 1116.876 926.119 Intake: IV 20 0.9 NS 20 Intake, IV Titration 686.876 964.119 Amount Dextrose 5% in Water 1, 600 800 000 ml @ 200 mls/hr IV . Q5H45M KAT[facility]ZYNA with Sodium Bicarb (1 Meq/ml) 150 ml Rx#:[id number] Heparin Sod,Pork in 0.45% 86.876 114.119 NaCl 25,000 unit In 0.45 % NaCl 1 250ml.bag @ 12 UNITS/KG/HR 9.798 mls/hr IV .Q24H [facility] Rx#: [id number] cefTRIAXone 2 gm In 50 Sodium Chloride 0.9% 50 ml @ 100 mls/hr IVPB Q12HR [facility] Rx#:[id number] Oral 450 Output: Urine 58 20 58 Uretheral (Cat) 43 28 Other: Voiding Method Indwelling Catheter Indwelling Catheter Results - Lab Results Most recent lab results Calcium 6.0 mg/dL (8.4-10.2) L* 01/05/24 06:02 Magnesium 2.2 mg/dL (1.6-2.3) 01/05/24 06:02 01/05/24 06:02 01/05/24 06:02 Assessment and Plan Plan: Assessment: 1. Acute kidney injury secondary to ATN secondary to severe sepsis and rhabdomyolysis. Baseline creatinine 0.5-0.6 and up to 4.02 today. Oliguric. Diuretic unresponsive. No hydronephrosis noted on abdominal ultrasound. 2. Rhabdomyolysis secondary to fall/immobility. CK level greater than 160,000 today. 3. Severe sepsis secondary to gram-positive bacteremia. On IV antibiotics. 4. Metabolic acidosis secondary to acute kidney injury. 5. Initially hypernatremia and he did receive half-normal saline yesterday. Sodium level last night was 140 and fluids were changed to isotonic bicarb drip. Sodium today is 132. 6. Hypocalcemia secondary to acute kidney injury and rhabdomyolysis. Expect improvement postdialysis. Avoid aggressive calcium replacement to avoid calcium phosphate precipitation in tissues. Plan: Maintain bicarb drip at 200 cc an hour. Due to oliguria/severe acute kidney injury, acidosis, initiate renal replacement therapy. Vascular surgery consulted for dialysis catheter placement. Plan for first treatment of hemodialysis today and second treatment tomorrow. Avoid nephrotoxins. Follow-up cultures. Monitor for renal recovery. Thank you for the consultation. I will continue to follow the patient with you during his hospital stay.
[2024-01-05] MEDS: HYDROmorphone 1 MG/ML 1 ML SYRINGE IVP STA (11:51)
[2024-01-05] MEDS: CALCIUM GLUCONATE IN NACL 1 GM in SALINE 1 100ML.BAG IVPB ONE (11:51)
--- NOTE | 2024-01-05 12:17 | P.CNPUL ---
History of Present Illness Consult date: 01/05/24 Requesting physician: Yuri Dee Reason for consult: other (Severe sepsis and alcohol withdrawal) Chief complaint: Altered mental status History of present illness: This is a 38-year-old white male with history of multiple medical problems including alcoholism, hepatitis C, hypertension, GERD, patient was brought into the ER yesterday after he was noted to be face down in the snow, upon EMS arr ival, the patient was hypothermic, and altered mental status. In the ER, the patient was noted to have temp of 102.6, he was tachycardic, and was not hypotensive or hypoxic. Workup in the ER included CBC which showed leukocytosis. His bicarb was noted to be low, patient was noted to have anion gap metabolic acidosis, he was also noted to have renal failure with a BUN of 51 creatinine 3.45. His CPK was significantly elevated almost 92,000, troponin elevated at 1.6, and liver enzymes were also elevated including AST and ALT. There was evidence of blood in the urine. No drug screen was done at the time of arrival, but his alcohol level was less than 10. His RSV PCR was positive. Drug screen in the ICU was positive for barbiturates, amphetamine, methamphetamine, and benzodiazepines. Patient was seen by many consultants including infectious disease, patient was started empirically on antibiotics in the form of Rocephin and vancomycin, and infectious disease recommended a lumbar puncture on this patient. Initial chemistry on the spinal fluid seems to be unremarkable. Final report is pending. His blood cultures today are positive for gram-positive cocci in clusters. Patient was seen by nephrology today, and recommending starting the patient on hemodialysis. Patient was felt to have acute kidney injury secondary to ATN, and severe sepsis and rhabdomyolysis, oliguric, unresponsive to diuretics, and there was no hydronephrosis on the abdominal ultrasound. At any rate patient is scheduled to have a dialysis catheter placement today. Last night the patient was on the regular medical floor, I was made aware of this patient because his CIWA score was 20,, patient was already on a bicarb drip, and I have recommended transferring the patient out of the floor to the ICU saw this patient this morning, reviewed all his labs and workup, remains on bicarb drip, empirically on antibiotics for his presumptive severe sepsis and bacteremia as noted on blood cultures today, patient continues to have significantly elevated CPK, continues to have worsening renal failure. Blood pressure was high and I recommended Cleviprex at 2 mg/h. Also recommended a drug screen to be done. Patient did not require Precedex, he is agitation is well-controlled with Ativan. According to the patient his last alcohol drink was 2 days ago. Patient is not a great historian, seems to mumble but does not give adequate history. And he is by all means encephalopathic. But able to protect his airways, and able to cough and clear secretions. Hence did not feel the need to intubate this patient at this point. Procalcitonin level this morning is 45.9 Review of Systems ROS unobtainable: due to mental status Past Medical History Past Medical History: GERD/Reflux, Hypertension, Liver Disease, Skin Disorder Additional Past Medical History / Comment(s): Hepatitis C, Pancreatitis, DDD, back pain, bilateral carpel tunnel syndrome. In the past has reported that he has heart disease that was found when he had kidney problems but he denies having a stress test or cardiac catheterization. History of Any Multi-Drug Resistant Organisms: None Reported MDRO Source:: unknown Past Surgical History: No Surgical Hx Reported, Unable to Obtain Additional Past Surgical History / Comment(s): Pt states he has had numerous "cysts" removed from where he injected IV drugs. Past Anesthesia/Blood Transfusion Reactions: No Reported Reaction, Unable to Obtain Additional Past Anesthesia/Blood Transfusion Reaction / Comment(s): In the past pt reported that he has never had surgery Past Psychological History: Anxiety, Bipolar, Depression, Schizophrenia Smoking Status: Current every day smoker Past Alcohol Use History: Abuse Past Drug Use History: Marijuana, Methamphetamine, Opiates - Past Family History Mother Family Medical History: Unable to Obtain, Rheumatoid Arthritis (RA) Additional Family Medical History / Comment(s): Mother is . Father Family Medical History: Coronary Artery Disease (CAD) Medications and Allergies Home Medications Medication Instructions Recorded Confirmed Type Haloperidol Decanoate [Haldol D] 200 mg IM Q14D 1 Days #1 each 10/20/23 01/04/24 Rx QUEtiapine [SEROquel] 25 mg PO BID 30 Days #60 tab 12/11/23 01/04/24 Rx Thiamine [Vitamin B-1] 100 mg PO DAILY 30 Days #30 tab 12/11/23 01/04/24 Rx buPROPion XL [Wellbutrin XL] 150 mg PO DAILY 30 Days #30 tab 12/11/23 01/04/24 Rx busPIRone HCl [Buspar] 7.5 mg PO BID 30 Days #60 tab 12/11/23 01/04/24 Rx Allergies Allergy/AdvReac Type Severity Reaction Status Date / Time flea Allergy Rash/Hives Uncoded 01/04/24 13:20 Physical Exam Vitals: Vital Signs Temp Pulse Resp BP Pulse Ox 01/05/24 10:00 94 8 L 145/97 93 L 01/05/24 09:00 77 24 156/113 97 01/05/24 08:16 97 01/05/24 08:00 98.1 F 82 12 163/110 94 L 01/05/24 07:00 88 10 L 161/118 94 L 01/05/24 06:00 86 8 L 156/107 97 01/05/24 05:00 82 6 L 157/107 96 01/05/24 04:00 97.9 F 85 18 151/108 96 01/05/24 01:00 87 26 H 165/112 100 01/05/24 00:00 81 28 H 143/96 97 01/04/24 21:00 88 20 158/109 96 01/04/24 20:14 94 01/04/24 20:00 98.4 F 99 22 148/118 95 01/04/24 19:56 96 01/04/24 18:19 99.3 F 96 24 159/104 95 01/04/24 17:10 99.9 F H 104 H 20 165/109 93 L 01/04/24 16:55 99.9 F H 102 H 22 154/105 97 01/04/24 15:40 100.0 F H 106 H 24 177/98 95 01/04/24 15:15 110 H 22 162/98 94 L 01/04/24 15:01 100.0 F H 109 H 27 H 166/111 95 01/04/24 14:53 98.2 F 01/04/24 14:30 113 H 38 H 151/105 95 01/04/24 13:55 102.0 F H 116 H 34 H 155/93 93 L 01/04/24 13:04 102.6 F H 128 H 36 H 106/41 95 01/04/24 12:15 98.3 F 02/15/24 12:10 99.7 F H 134 H 22 93 L Intake and Output 01/04/24 01/05/24 01/05/24 22:59 06:59 14:59 Intake Total 1136.876 984.119 Output Total 58 20 58 Balance -58 1116.876 926.119 Intake: IV 20 0.9 NS 20 Intake, IV Titration 686.876 964.119 Amount Dextrose 5% in Water 1, 600 800 000 ml @ 200 mls/hr IV . Q5H45M [facility] with Sodium Bicarb (1 Meq/ml) 150 ml Rx#:[id number] Heparin Sod,Pork in 0.45% 86.876 114.119 NaCl 25,000 unit In 0.45 % NaCl 1 250ml.bag @ 12 UNITS/KG/HR 9.798 mls/hr IV .Q24H [facility] Rx#: [id number] cefTRIAXone 2 gm In 50 Sodium Chloride 0.9% 50 ml @ 100 mls/hr IVPB Q12HR [facility] Rx#:[id number] Oral 450 Output: Urine 58 20 58 Uretheral (Cat) 43 28 Other: Voiding Method Indwelling Catheter Indwelling Catheter General: Revealed 38-year-old white male, encephalopathic,disheveled confused, looks chronically ill. Skin: Skin is warm and dry and no rashes or lesions are noted. Small abrasion noted at the top of his nose Eye: Pupils are equal, round and reactive to light, extra-ocular movements are intact; there is normal conjunctiva bilaterally. Ears, nose, mouth and throat: There are moist mucous membranes and no oral lesions. Neck: The neck is supple, there is no tenderness or JVD. Cardiovascular: There is a regular rate and rhythm. No murmur, rub or gallop is appreciated. Respiratory: Diminished breath sound bilaterally no crackles rhonchi or wheezes Gastrointestinal: Soft, non-distended, non-tender abdomen without masses or organomegaly noted. There is no rebound or guarding present. Bowel sounds are unremarkable. Musculoskeletal: Normal ROM, no tenderness, There is no pedal edema. There is no calf tenderness or swelling. No cords were appreciated. Neurological: Patient seems to be confused, lethargic, however he is arousable, and follows simple instructions Psychiatric: Confused, flat affect, Results - Laboratory Findings CBC and BMP: 01/05/24 06:02 01/05/24 06:02 PT/INR, D-dimer PT 11.7 sec (10.0-12.5) 01/05/24 06:02 INR 1.1 (<1.2) 01/05/24 06:02 Abnormal lab findings: Abnormal Labs 01/04/24 01/04/24 01/04/24 12:12 12:12 12:12 WBC 22.0 H Hgb Hct RDW 16.0 H Plt Count Neutrophils # 19.7 H Lymphocytes # 0.4 L Monocytes # 1.6 H ESR APTT Sodium 152 H Chloride 116 H Carbon Dioxide 11 L BUN 38 H Creatinine 3.47 H Glucose 105 H Osmolality Plasma Lactic Acid Sohail Calcium Magnesium 3.2 H AST 1723 H ALT 399 H Creatine Kinase Troponin I 2.390 H* Total Protein 8.9 H Albumin 5.1 H HDL Cholesterol Procalcitonin Urine Protein Urine Blood Urine RBC Urine Osmolality CSF RBC Ur Barbiturates Screen Ur Amphetamines Screen U Methamphetamines Scrn U Benzodiazepines Scrn RSV (PCR) 01/04/24 01/04/24 01/04/24 12:12 12:12 13:44 WBC Hgb Hct RDW Plt Count Neutrophils # Lymphocytes # Monocytes # ESR 27 H APTT Sodium Chloride Carbon Dioxide BUN Creatinine Glucose Osmolality Plasma Lactic Acid Sohail 4.0 H* Calcium Magnesium AST ALT Creatine Kinase Troponin I Total Protein Albumin HDL Cholesterol Procalcitonin 45.90 H Urine Protein Urine Blood Urine RBC Urine Osmolality CSF RBC Ur Barbiturates Screen Ur Amphetamines Screen U Methamphetamines Scrn U Benzodiazepines Scrn RSV (PCR) 01/04/24 01/04/24 01/04/24 13:44 14:35 14:35 WBC Hgb Hct RDW Plt Count Neutrophils # Lymphocytes # Monocytes # ESR APTT Sodium Chloride Carbon Dioxide BUN Creatinine Glucose Osmolality Plasma Lactic Acid Sohail Calcium Magnesium AST ALT Creatine Kinase 50262 H* Troponin I 1.960 H* Total Protein Albumin HDL Cholesterol Procalcitonin Urine Protein Urine Blood Urine RBC Urine Osmolality CSF RBC Ur Barbiturates Screen Ur Amphetamines Screen U Methamphetamines Scrn U Benzodiazepines Scrn RSV (PCR) Detected A 01/04/24 01/04/24 01/04/24 14:58 15:01 17:05 WBC Hgb Hct RDW Plt Count Neutrophils # Lymphocytes # Monocytes # ESR APTT Sodium Chloride Carbon Dioxide BUN Creatinine Glucose Osmolality Plasma Lactic Acid Sohail Calcium Magnesium AST ALT Creatine Kinase Troponin I 1.620 H* Total Protein Albumin HDL Cholesterol Procalcitonin Urine Protein 2+ H Urine Blood Large H Urine RBC >182 H Urine Osmolality 363 L CSF RBC Ur Barbiturates Screen Ur Amphetamines Screen U Methamphetamines Scrn U Benzodiazepines Scrn RSV (PCR) 01/04/24 01/04/24 01/04/24 19:48 20:38 22:15 WBC Hgb Hct RDW Plt Count Neutrophils # Lymphocytes # Monocytes # ESR APTT 39.9 H Sodium Chloride 109 H Carbon Dioxide 12 L BUN 51 H Creatinine 3.45 H Glucose 108 H Osmolality 308 H Plasma Lactic Acid Sohail Calcium 7.0 L Magnesium AST ALT Creatine Kinase Troponin I Total Protein Albumin HDL Cholesterol Procalcitonin Urine Protein Urine Blood Urine RBC Urine Osmolality CSF RBC 14 H Ur Barbiturates Screen Ur Amphetamines Screen U Methamphetamines Scrn U Benzodiazepines Scrn RSV (PCR) 01/05/24 01/05/24 01/05/24 06:02 06:02 06:02 WBC Hgb 11.8 L D Hct 36.3 L RDW 15.9 H Plt Count 137 L Neutrophils # 9.0 H Lymphocytes # 0.8 L Monocytes # ESR APTT 48.1 H Sodium 132 L Chloride Carbon Dioxide 16 L BUN 60 H Creatinine 4.02 H Glucose 103 H Osmolality Plasma Lactic Acid Sohail Calcium 6.0 L* Magnesium AST 4452 H ALT 592 H Creatine Kinase Troponin I Total Protein 6.0 L Albumin 3.3 L HDL Cholesterol Procalcitonin Urine Protein Urine Blood Urine RBC Urine Osmolality CSF RBC Ur Barbiturates Screen Ur Amphetamines Screen U Methamphetamines Scrn U Benzodiazepines Scrn RSV (PCR) 01/05/24 01/05/24 01/05/24 06:02 06:02 06:02 WBC Hgb Hct RDW Plt Count Neutrophils # Lymphocytes # Monocytes # ESR APTT Sodium Chloride Carbon Dioxide BUN Creatinine Glucose Osmolality Plasma Lactic Acid Sohail Calcium Magnesium AST ALT Creatine Kinase >275294 H* Troponin I 0.571 H* Total Protein Albumin HDL Cholesterol 64.20 H Procalcitonin Urine Protein Urine Blood Urine RBC Urine Osmolality CSF RBC Ur Barbiturates Screen Ur Amphetamines Screen U Methamphetamines Scrn U Benzodiazepines Scrn RSV (PCR) 01/05/24 09:50 WBC Hgb Hct RDW Plt Count Neutrophils # Lymphocytes # Monocytes # ESR APTT Sodium Chloride Carbon Dioxide BUN Creatinine Glucose Osmolality Plasma Lactic Acid Sohail Calcium Magnesium AST ALT Creatine Kinase Troponin I Total Protein Albumin HDL Cholesterol Procalcitonin Urine Protein Urine Blood Urine RBC Urine Osmolality CSF RBC Ur Barbiturates Screen Detected H Ur Amphetamines Screen Detected H U Methamphetamines Scrn Detected H U Benzodiazepines Scrn Detected H RSV (PCR) - Diagnostic Findings Chest x-ray: image reviewed (No evidence of active disease noted on the chest x- ray.) Additional studies: Head, and cervical spine CT showed no acute fracture or dislocation of cervical spine, no intracranial hemorrhage, and no significant findings noted on the CT of the cervical spine and head Assessment and Plan Assessment: Impression: Acute alcohol withdrawal Acute metabolic encephalopathy Bacteremia and gram-positive sepsis/severe sepsis Hypothermia on presentation. Acute transaminitis. Acute rhabdomyolysis. Acute kidney injury with oliguria and not responsive to diuretics history of alcoholism History of hepatitis C History of GERD History of pancreatitis History of IV drug abuse History of bipolar disorder and depression Recommendation: Continue to monitor in the ICU Continue antibiotics empirically, patient did have positive blood cultures, final identification and sensitivity is pending Continue IV fluids and bicarb drip. Agree with hemodialysis which is likely to be started sometime today. Continue to monitor daily labs Continue GI and DVT prophylaxis Continue CIWA protocol Patient is critically ill however does not require intubation at this point. Will continue to follow. Time with Patient: Greater than 30
--- NOTE | 2024-01-05 12:20 | P.PN ---
Subjective Progress Note Date: 01/05/24 Principal diagnosis: Reason for follow-up is fever and a positive blood culture Patient is a 38-year-old male with a past medical history of GERD for hypertension hepatitis C pancreatitis reflux history of alcoholism patient was brought into the ER by EMS after apparently the patient was noticed to be facedown in the snow when the EMS got him up he was unable to speak patient was hypothermic and subsequently brought into the ER for further evaluation, on arrival to the ER the patient did have a fever did have elevated white count chest x-ray UA was negative abdominal soft LP was done last night which came back negative as well. On today's evaluation that is 01/05/2024, the patient did have resolution of his fever and is afebrile this morning, the patient is on room air and breathing comfortably, the patient is slightly more awake today has been complaining of pain all over no significant chest pain no cough no vomiting diarrhea per the nursing staff no abdominal pain patient did have worsening of his kidney function requiring dialysis catheter placement. Patient white count normalized to 10.5, creatinine 4.02 blood cultures 2 out of 2 positive for gram-positive cocci Objective - Vital Signs Vital signs: Vital Signs Temp 98.1 F 01/05/24 08:00 Pulse 94 01/05/24 10:00 Resp 8 L 01/05/24 10:00 BP 145/97 01/05/24 10:00 Pulse Ox 93 L 01/05/24 10:00 FiO2 Intake & Output 01/04/24 01/05/24 01/05/24 18:59 06:59 18:59 Intake Total 1136.876 984.119 Output Total 30 48 58 Balance -30 1088.876 926.119 Weight 81.647 kg Intake: IV 20 0.9 NS 20 Intake, IV Titration 686.876 964.119 Amount Dextrose 5% in Water 1, 600 800 000 ml @ 200 mls/hr IV . Q5H45M KATARZYNA with Sodium Bicarb (1 Meq/ml) 150 ml Rx#:[id number] Heparin Sod,Pork in 0.45% 86.876 114.119 NaCl 25,000 unit In 0.45 % NaCl 1 250ml.bag @ 12 UNITS/KG/HR 9.798 mls/hr IV .Q24H KATARZYNA Rx#: [id number] cefTRIAXone 2 gm In 50 Sodium Chloride 0.9% 50 ml @ 100 mls/hr IVPB Q12HR [facility] Rx#:[id number] Oral 450 Output: Urine 30 48 58 Uretheral (Cat) 15 28 28 Other: Voiding Method Indwelling Catheter Indwelling Catheter - Exam GENERAL DESCRIPTION: Middle-age male lying in bed in no distress RESPIRATORY SYSTEM: Unlabored breathing , decreased breath sounds at bases HEART: S1 S2 regular rate and rhythm , ABDOMEN: Soft , no tenderness EXTREMITIES: No edema feet - Labs CBC & Chem 7: 01/05/24 06:02 01/05/24 06:02 Labs: Abnormal Lab Results - Last 24 Hours (Table) 01/04/24 01/04/24 01/04/24 Range/Units 12:12 12:12 12:12 WBC 22.0 H (3.8-10.6) k/uL Hgb (13.0-17.5) gm/dL Hct (39.0-53.0) % RDW 16.0 H (11.5-15.5) % Plt Count (150-450) k/uL Neutrophils # 19.7 H (1.3-7.7) k/uL Lymphocytes # 0.4 L (1.0-4.8) k/uL Monocytes # 1.6 H (0-1.0) k/uL ESR (0-15) mm/Hr APTT (22.0-30.0) sec Sodium 152 H (137-145) mmol/L Chloride 116 H (98-107) mmol/L Carbon Dioxide 11 L (22-30) mmol/L BUN 38 H (9-20) mg/dL Creatinine 3.47 H (0.66-1.25) mg/dL Glucose 105 H (74-99) mg/dL Osmolality (275-295) mOsm/kg Plasma Lactic Acid Sohail (0.7-2.0) mmol/L Calcium (8.4-10.2) mg/dL Magnesium 3.2 H (1.6-2.3) mg/dL AST 1723 H (17-59) U/L ALT 399 H (4-49) U/L Creatine Kinase (55-170) U/L Troponin I 2.390 H* (0.000-0.034) ng/mL Total Protein 8.9 H (6.3-8.2) g/dL Albumin 5.1 H (3.5-5.0) g/dL Procalcitonin (0.02-0.09) ng/mL Urine Protein (Negative) Urine Blood (Negative) Urine RBC (0-5) /hpf Urine Osmolality (400-1100) mOsm/kg CSF RBC (0-10) u/L RSV (PCR) (Not Detectd) 01/04/24 01/04/24 01/04/24 Range/Units 12:12 12:12 13:44 WBC (3.8-10.6) k/uL Hgb (13.0-17.5) gm/dL Hct (39.0-53.0) % RDW (11.5-15.5) % Plt Count (150-450) k/uL Neutrophils # (1.3-7.7) k/uL Lymphocytes # (1.0-4.8) k/uL Monocytes # (0-1.0) k/uL ESR 27 H (0-15) mm/Hr APTT (22.0-30.0) sec Sodium (137-145) mmol/L Chloride (98-107) mmol/L Carbon Dioxide (22-30) mmol/L BUN (9-20) mg/dL Creatinine (0.66-1.25) mg/dL Glucose (74-99) mg/dL Osmolality (275-295) mOsm/kg Plasma Lactic Acid Sohail 4.0 H* (0.7-2.0) mmol/L Calcium (8.4-10.2) mg/dL Magnesium (1.6-2.3) mg/dL AST (17-59) U/L ALT (4-49) U/L Creatine Kinase (55-170) U/L Troponin I (0.000-0.034) ng/mL Total Protein (6.3-8.2) g/dL Albumin (3.5-5.0) g/dL Procalcitonin 45.90 H (0.02-0.09) ng/mL Urine Protein (Negative) Urine Blood (Negative) Urine RBC (0-5) /hpf Urine Osmolality (400-1100) mOsm/kg CSF RBC (0-10) u/L RSV (PCR) (Not Detectd) 01/04/24 01/04/24 01/04/24 Range/Units 13:44 14:35 14:35 WBC (3.8-10.6) k/uL Hgb (13.0-17.5) gm/dL Hct (39.0-53.0) % RDW (11.5-15.5) % Plt Count (150-450) k/uL Neutrophils # (1.3-7.7) k/uL Lymphocytes # (1.0-4.8) k/uL Monocytes # (0-1.0) k/uL ESR (0-15) mm/Hr APTT (22.0-30.0) sec Sodium (137-145) mmol/L Chloride (98-107) mmol/L Carbon Dioxide (22-30) mmol/L BUN (9-20) mg/dL Creatinine (0.66-1.25) mg/dL Glucose (74-99) mg/dL Osmolality (275-295) mOsm/kg Plasma Lactic Acid Sohail (0.7-2.0) mmol/L Calcium (8.4-10.2) mg/dL Magnesium (1.6-2.3) mg/dL AST (17-59) U/L ALT (4-49) U/L Creatine Kinase 68679 H* (55-170) U/L Troponin I 1.960 H* (0.000-0.034) ng/mL Total Protein (6.3-8.2) g/dL Albumin (3.5-5.0) g/dL Procalcitonin (0.02-0.09) ng/mL Urine Protein (Negative) Urine Blood (Negative) Urine RBC (0-5) /hpf Urine Osmolality (400-1100) mOsm/kg CSF RBC (0-10) u/L RSV (PCR) Detected A (Not Detectd) 01/04/24 01/04/24 01/04/24 Range/Units 14:58 15:01 17:05 WBC (3.8-10.6) k/uL Hgb (13.0-17.5) gm/dL Hct (39.0-53.0) % RDW (11.5-15.5) % Plt Count (150-450) k/uL Neutrophils # (1.3-7.7) k/uL Lymphocytes # (1.0-4.8) k/uL Monocytes # (0-1.0) k/uL ESR (0-15) mm/Hr APTT (22.0-30.0) sec Sodium (137-145) mmol/L Chloride (98-107) mmol/L Carbon Dioxide (22-30) mmol/L BUN (9-20) mg/dL Creatinine (0.66-1.25) mg/dL Glucose (74-99) mg/dL Osmolality (275-295) mOsm/kg Plasma Lactic Acid Sohail (0.7-2.0) mmol/L Calcium (8.4-10.2) mg/dL Magnesium (1.6-2.3) mg/dL AST (17-59) U/L ALT (4-49) U/L Creatine Kinase (55-170) U/L Troponin I 1.620 H* (0.000-0.034) ng/mL Total Protein (6.3-8.2) g/dL Albumin (3.5-5.0) g/dL Procalcitonin (0.02-0.09) ng/mL Urine Protein 2+ H (Negative) Urine Blood Large H (Negative) Urine RBC >182 H (0-5) /hpf Urine Osmolality 363 L (400-1100) mOsm/kg CSF RBC (0-10) u/L RSV (PCR) (Not Detectd) 01/04/24 01/04/24 01/04/24 Range/Units 19:48 20:38 22:15 WBC (3.8-10.6) k/uL Hgb (13.0-17.5) gm/dL Hct (39.0-53.0) % RDW (11.5-15.5) % Plt Count (150-450) k/uL Neutrophils # (1.3-7.7) k/uL Lymphocytes # (1.0-4.8) k/uL Monocytes # (0-1.0) k/uL ESR (0-15) mm/Hr APTT 39.9 H (22.0-30.0) sec Sodium (137-145) mmol/L Chloride 109 H (98-107) mmol/L Carbon Dioxide 12 L (22-30) mmol/L BUN 51 H (9-20) mg/dL Creatinine 3.45 H (0.66-1.25) mg/dL Glucose 108 H (74-99) mg/dL Osmolality 308 H (275-295) mOsm/kg Plasma Lactic Acid Sohail (0.7-2.0) mmol/L Calcium 7.0 L (8.4-10.2) mg/dL Magnesium (1.6-2.3) mg/dL AST (17-59) U/L ALT (4-49) U/L Creatine Kinase (55-170) U/L Troponin I (0.000-0.034) ng/mL Total Protein (6.3-8.2) g/dL Albumin (3.5-5.0) g/dL Procalcitonin (0.02-0.09) ng/mL Urine Protein (Negative) Urine Blood (Negative) Urine RBC (0-5) /hpf Urine Osmolality (400-1100) mOsm/kg CSF RBC 14 H (0-10) u/L RSV (PCR) (Not Detectd) 01/05/24 01/05/24 01/05/24 Range/Units 06:02 06:02 06:02 WBC (3.8-10.6) k/uL Hgb 11.8 L D (13.0-17.5) gm/dL Hct 36.3 L (39.0-53.0) % RDW 15.9 H (11.5-15.5) % Plt Count 137 L (150-450) k/uL Neutrophils # 9.0 H (1.3-7.7) k/uL Lymphocytes # 0.8 L (1.0-4.8) k/uL Monocytes # (0-1.0) k/uL ESR (0-15) mm/Hr APTT 48.1 H (22.0-30.0) sec Sodium 132 L (137-145) mmol/L Chloride (98-107) mmol/L Carbon Dioxide 16 L (22-30) mmol/L BUN 60 H (9-20) mg/dL Creatinine 4.02 H (0.66-1.25) mg/dL Glucose 103 H (74-99) mg/dL Osmolality (275-295) mOsm/kg Plasma Lactic Acid Sohail (0.7-2.0) mmol/L Calcium 6.0 L* (8.4-10.2) mg/dL Magnesium (1.6-2.3) mg/dL AST 4452 H (17-59) U/L ALT 592 H (4-49) U/L Creatine Kinase (55-170) U/L Troponin I (0.000-0.034) ng/mL Total Protein 6.0 L (6.3-8.2) g/dL Albumin 3.3 L (3.5-5.0) g/dL Procalcitonin (0.02-0.09) ng/mL Urine Protein (Negative) Urine Blood (Negative) Urine RBC (0-5) /hpf Urine Osmolality (400-1100) mOsm/kg CSF RBC (0-10) u/L RSV (PCR) (Not Detectd) 01/05/24 01/05/24 Range/Units 06:02 06:02 WBC (3.8-10.6) k/uL Hgb (13.0-17.5) gm/dL Hct (39.0-53.0) % RDW (11.5-15.5) % Plt Count (150-450) k/uL Neutrophils # (1.3-7.7) k/uL Lymphocytes # (1.0-4.8) k/uL Monocytes # (0-1.0) k/uL ESR (0-15) mm/Hr APTT (22.0-30.0) sec Sodium (137-145) mmol/L Chloride (98-107) mmol/L Carbon Dioxide (22-30) mmol/L BUN (9-20) mg/dL Creatinine (0.66-1.25) mg/dL Glucose (74-99) mg/dL Osmolality (275-295) mOsm/kg Plasma Lactic Acid Sohail (0.7-2.0) mmol/L Calcium (8.4-10.2) mg/dL Magnesium (1.6-2.3) mg/dL AST (17-59) U/L ALT (4-49) U/L Creatine Kinase >471159 H* (55-170) U/L Troponin I 0.571 H* (0.000-0.034) ng/mL Total Protein (6.3-8.2) g/dL Albumin (3.5-5.0) g/dL Procalcitonin (0.02-0.09) ng/mL Urine Protein (Negative) Urine Blood (Negative) Urine RBC (0-5) /hpf Urine Osmolality (400-1100) mOsm/kg CSF RBC (0-10) u/L RSV (PCR) (Not Detectd) Microbiology - Last 24 Hours (Table) 01/04/24 13:44 Blood Culture Gram Stain - Preliminary Blood 01/04/24 22:15 CSF Gram Stain - Preliminary Cerebral Spinal Fluid Assessment and Plan (1) Fever with leukocytosis and leukocyte count greater than or equal to 20,000 Current Visit: Yes Status: Acute Code(s): D72.829 - ELEVATED WHITE BLOOD CELL COUNT, UNSPECIFIED SNOMED Code(s): 461451814 (2) Positive blood culture Current Visit: No Status: Acute Code(s): R78.81 - BACTEREMIA SNOMED Code(s): 743075373 Plan: 1patient presented hospital with episode of unresponsiveness by the EMS patient did have features of sepsis running a fever did have elevated white count, initial workup including a chest x-ray and UA has been negative the patient abdominal was soft on clinical examination and there was no evidence of any cellulitis with a question of possible [employer] infection however the patient did have LP completed last night by ER physician and is negative 2-patient with a positive blood culture with gram-positive cocci await ID sensitivities blood culture has been repeated daptomycin has been added and continue with Rocephin while waiting for the workup to be completed and condition stabilized Dictation was produced using [employer] dictation software. please excuse any grammatical, word or spelling errors. Time with Patient: Less than 30
--- NOTE | 2024-01-05 12:29 | P.GSCN ---
History of Present Illness History of present illness: 38-year-old white male patient was seen in disc care unit patient came with acute kidney injury, rhabdomyolysis CK is 11/25/1999 BUN/creatinine is high consulted for placement of a dialysis catheter. Chest is clear few crackles the lung bases Abdomen is soft nontender Femorals are 2+ bilateral Blood culture positive for gram-positive cocci patient is on consult with infectious disease Plan is placement of the dialysis catheter risk and complication discussed Past Medical History Past Medical History: GERD/Reflux, Hypertension, Liver Disease, Skin Disorder Additional Past Medical History / Comment(s): Hepatitis C, Pancreatitis, DDD, back pain, bilateral carpel tunnel syndrome. In the past has reported that he has heart disease that was found when he had kidney problems but he denies having a stress test or cardiac catheterization. History of Any Multi-Drug Resistant Organisms: None Reported MDRO Source:: unknown Past Surgical History: No Surgical Hx Reported, Unable to Obtain Additional Past Surgical History / Comment(s): Pt states he has had numerous "cysts" removed from where he injected IV drugs. Past Anesthesia/Blood Transfusion Reactions: No Reported Reaction, Unable to Obtain Additional Past Anesthesia/Blood Transfusion Reaction / Comm: In the past pt reported that he has never had surgery Past Psychological History: Anxiety, Bipolar, Depression, Schizophrenia Smoking Status: Current every day smoker Past Alcohol Use History: Abuse Past Drug Use History: Marijuana, Methamphetamine, Opiates - Past Family History Mother Family Medical History: Unable to Obtain, Rheumatoid Arthritis (RA) Additional Family Medical History / Comment(s): Mother is . Father Family Medical History: Coronary Artery Disease (CAD) Medications and Allergies Home Medications Medication Instructions Recorded Confirmed Type Haloperidol Decanoate [Haldol D] 200 mg IM Q14D 1 Days #1 each 10/20/23 01/04/24 Rx QUEtiapine [SEROquel] 25 mg PO BID 30 Days #60 tab 12/11/23 01/04/24 Rx Thiamine [Vitamin B-1] 100 mg PO DAILY 30 Days #30 tab 12/11/23 01/04/24 Rx buPROPion XL [Wellbutrin XL] 150 mg PO DAILY 30 Days #30 tab 12/11/23 01/04/24 Rx busPIRone HCl [Buspar] 7.5 mg PO BID 30 Days #60 tab 12/11/23 01/04/24 Rx Allergies Allergy/AdvReac Type Severity Reaction Status Date / Time flea Allergy Rash/Hives Uncoded 01/04/24 13:20 Surgical - Exam Vital Signs Temp Pulse Resp BP Pulse Ox 97.3 F L 124 H 20 119/91 94 L 01/04/24 11:59 01/04/24 11:59 01/04/24 11:59 01/04/24 11:59 01/04/24 11:59 Results - Labs 01/05/24 06:02 01/05/24 06:02 Abnormal Lab Results - Last 24 Hours (Table) 01/04/24 01/04/24 01/04/24 Range/Units 12:12 12:12 12:12 WBC 22.0 H (3.8-10.6) k/uL Hgb (13.0-17.5) gm/dL Hct (39.0-53.0) % RDW 16.0 H (11.5-15.5) % Plt Count (150-450) k/uL Neutrophils # 19.7 H (1.3-7.7) k/uL Lymphocytes # 0.4 L (1.0-4.8) k/uL Monocytes # 1.6 H (0-1.0) k/uL ESR (0-15) mm/Hr APTT (22.0-30.0) sec Sodium 152 H (137-145) mmol/L Chloride 116 H (98-107) mmol/L Carbon Dioxide 11 L (22-30) mmol/L BUN 38 H (9-20) mg/dL Creatinine 3.47 H (0.66-1.25) mg/dL Glucose 105 H (74-99) mg/dL Osmolality (275-295) mOsm/kg Plasma Lactic Acid Sohail (0.7-2.0) mmol/L Calcium (8.4-10.2) mg/dL Magnesium 3.2 H (1.6-2.3) mg/dL AST 1723 H (17-59) U/L ALT 399 H (4-49) U/L Creatine Kinase (55-170) U/L Troponin I 2.390 H* (0.000-0.034) ng/mL Total Protein 8.9 H (6.3-8.2) g/dL Albumin 5.1 H (3.5-5.0) g/dL HDL Cholesterol (40.00-60.00) mg/dL Procalcitonin (0.02-0.09) ng/mL Urine Protein (Negative) Urine Blood (Negative) Urine RBC (0-5) /hpf Urine Osmolality (400-1100) mOsm/kg CSF RBC (0-10) u/L Ur Barbiturates Screen (NotDetected) Ur Amphetamines Screen (NotDetected) U Methamphetamines Scrn (NotDetected) U Benzodiazepines Scrn (NotDetected) RSV (PCR) (Not Detectd) 01/04/24 01/04/24 01/04/24 Range/Units 12:12 12:12 13:44 WBC (3.8-10.6) k/uL Hgb (13.0-17.5) gm/dL Hct (39.0-53.0) % RDW (11.5-15.5) % Plt Count (150-450) k/uL Neutrophils # (1.3-7.7) k/uL Lymphocytes # (1.0-4.8) k/uL Monocytes # (0-1.0) k/uL ESR 27 H (0-15) mm/Hr APTT (22.0-30.0) sec Sodium (137-145) mmol/L Chloride (98-107) mmol/L Carbon Dioxide (22-30) mmol/L BUN (9-20) mg/dL Creatinine (0.66-1.25) mg/dL Glucose (74-99) mg/dL Osmolality (275-295) mOsm/kg Plasma Lactic Acid Sohail 4.0 H* (0.7-2.0) mmol/L Calcium (8.4-10.2) mg/dL Magnesium (1.6-2.3) mg/dL AST (17-59) U/L ALT (4-49) U/L Creatine Kinase (55-170) U/L Troponin I (0.000-0.034) ng/mL Total Protein (6.3-8.2) g/dL Albumin (3.5-5.0) g/dL HDL Cholesterol (40.00-60.00) mg/dL Procalcitonin 45.90 H (0.02-0.09) ng/mL Urine Protein (Negative) Urine Blood (Negative) Urine RBC (0-5) /hpf Urine Osmolality (400-1100) mOsm/kg CSF RBC (0-10) u/L Ur Barbiturates Screen (NotDetected) Ur Amphetamines Screen (NotDetected) U Methamphetamines Scrn (NotDetected) U Benzodiazepines Scrn (NotDetected) RSV (PCR) (Not Detectd) 01/04/24 01/04/24 01/04/24 Range/Units 13:44 14:35 14:35 WBC (3.8-10.6) k/uL Hgb (13.0-17.5) gm/dL Hct (39.0-53.0) % RDW (11.5-15.5) % Plt Count (150-450) k/uL Neutrophils # (1.3-7.7) k/uL Lymphocytes # (1.0-4.8) k/uL Monocytes # (0-1.0) k/uL ESR (0-15) mm/Hr APTT (22.0-30.0) sec Sodium (137-145) mmol/L Chloride (98-107) mmol/L Carbon Dioxide (22-30) mmol/L BUN (9-20) mg/dL Creatinine (0.66-1.25) mg/dL Glucose (74-99) mg/dL Osmolality (275-295) mOsm/kg Plasma Lactic Acid Sohail (0.7-2.0) mmol/L Calcium (8.4-10.2) mg/dL Magnesium (1.6-2.3) mg/dL AST (17-59) U/L ALT (4-49) U/L Creatine Kinase 52528 H* (55-170) U/L Troponin I 1.960 H* (0.000-0.034) ng/mL Total Protein (6.3-8.2) g/dL Albumin (3.5-5.0) g/dL HDL Cholesterol (40.00-60.00) mg/dL Procalcitonin (0.02-0.09) ng/mL Urine Protein (Negative) Urine Blood (Negative) Urine RBC (0-5) /hpf Urine Osmolality (400-1100) mOsm/kg CSF RBC (0-10) u/L Ur Barbiturates Screen (NotDetected) Ur Amphetamines Screen (NotDetected) U Methamphetamines Scrn (NotDetected) U Benzodiazepines Scrn (NotDetected) RSV (PCR) Detected A (Not Detectd) 01/04/24 01/04/24 01/04/24 Range/Units 14:58 15:01 17:05 WBC (3.8-10.6) k/uL Hgb (13.0-17.5) gm/dL Hct (39.0-53.0) % RDW (11.5-15.5) % Plt Count (150-450) k/uL Neutrophils # (1.3-7.7) k/uL Lymphocytes # (1.0-4.8) k/uL Monocytes # (0-1.0) k/uL ESR (0-15) mm/Hr APTT (22.0-30.0) sec Sodium (137-145) mmol/L Chloride (98-107) mmol/L Carbon Dioxide (22-30) mmol/L BUN (9-20) mg/dL Creatinine (0.66-1.25) mg/dL Glucose (74-99) mg/dL Osmolality (275-295) mOsm/kg Plasma Lactic Acid Sohail (0.7-2.0) mmol/L Calcium (8.4-10.2) mg/dL Magnesium (1.6-2.3) mg/dL AST (17-59) U/L ALT (4-49) U/L Creatine Kinase (55-170) U/L Troponin I 1.620 H* (0.000-0.034) ng/mL Total Protein (6.3-8.2) g/dL Albumin (3.5-5.0) g/dL HDL Cholesterol (40.00-60.00) mg/dL Procalcitonin (0.02-0.09) ng/mL Urine Protein 2+ H (Negative) Urine Blood Large H (Negative) Urine RBC >182 H (0-5) /hpf Urine Osmolality 363 L (400-1100) mOsm/kg CSF RBC (0-10) u/L Ur Barbiturates Screen (NotDetected) Ur Amphetamines Screen (NotDetected) U Methamphetamines Scrn (NotDetected) U Benzodiazepines Scrn (NotDetected) RSV (PCR) (Not Detectd) 01/04/24 01/04/24 01/04/24 Range/Units 19:48 20:38 22:15 WBC (3.8-10.6) k/uL Hgb (13.0-17.5) gm/dL Hct (39.0-53.0) % RDW (11.5-15.5) % Plt Count (150-450) k/uL Neutrophils # (1.3-7.7) k/uL Lymphocytes # (1.0-4.8) k/uL Monocytes # (0-1.0) k/uL ESR (0-15) mm/Hr APTT 39.9 H (22.0-30.0) sec Sodium (137-145) mmol/L Chloride 109 H (98-107) mmol/L Carbon Dioxide 12 L (22-30) mmol/L BUN 51 H (9-20) mg/dL Creatinine 3.45 H (0.66-1.25) mg/dL Glucose 108 H (74-99) mg/dL Osmolality 308 H (275-295) mOsm/kg Plasma Lactic Acid Sohail (0.7-2.0) mmol/L Calcium 7.0 L (8.4-10.2) mg/dL Magnesium (1.6-2.3) mg/dL AST (17-59) U/L ALT (4-49) U/L Creatine Kinase (55-170) U/L Troponin I (0.000-0.034) ng/mL Total Protein (6.3-8.2) g/dL Albumin (3.5-5.0) g/dL HDL Cholesterol (40.00-60.00) mg/dL Procalcitonin (0.02-0.09) ng/mL Urine Protein (Negative) Urine Blood (Negative) Urine RBC (0-5) /hpf Urine Osmolality (400-1100) mOsm/kg CSF RBC 14 H (0-10) u/L Ur Barbiturates Screen (NotDetected) Ur Amphetamines Screen (NotDetected) U Methamphetamines Scrn (NotDetected) U Benzodiazepines Scrn (NotDetected) RSV (PCR) (Not Detectd) 01/05/24 01/05/24 01/05/24 Range/Units 06:02 06:02 06:02 WBC (3.8-10.6) k/uL Hgb 11.8 L D (13.0-17.5) gm/dL Hct 36.3 L (39.0-53.0) % RDW 15.9 H (11.5-15.5) % Plt Count 137 L (150-450) k/uL Neutrophils # 9.0 H (1.3-7.7) k/uL Lymphocytes # 0.8 L (1.0-4.8) k/uL Monocytes # (0-1.0) k/uL ESR (0-15) mm/Hr APTT 48.1 H (22.0-30.0) sec Sodium 132 L (137-145) mmol/L Chloride (98-107) mmol/L Carbon Dioxide 16 L (22-30) mmol/L BUN 60 H (9-20) mg/dL Creatinine 4.02 H (0.66-1.25) mg/dL Glucose 103 H (74-99) mg/dL Osmolality (275-295) mOsm/kg Plasma Lactic Acid Sohail (0.7-2.0) mmol/L Calcium 6.0 L* (8.4-10.2) mg/dL Magnesium (1.6-2.3) mg/dL AST 4452 H (17-59) U/L ALT 592 H (4-49) U/L Creatine Kinase (55-170) U/L Troponin I (0.000-0.034) ng/mL Total Protein 6.0 L (6.3-8.2) g/dL Albumin 3.3 L (3.5-5.0) g/dL HDL Cholesterol (40.00-60.00) mg/dL Procalcitonin (0.02-0.09) ng/mL Urine Protein (Negative) Urine Blood (Negative) Urine RBC (0-5) /hpf Urine Osmolality (400-1100) mOsm/kg CSF RBC (0-10) u/L Ur Barbiturates Screen (NotDetected) Ur Amphetamines Screen (NotDetected) U Methamphetamines Scrn (NotDetected) U Benzodiazepines Scrn (NotDetected) RSV (PCR) (Not Detectd) 01/05/24 01/05/24 01/05/24 Range/Units 06:02 06:02 06:02 WBC (3.8-10.6) k/uL Hgb (13.0-17.5) gm/dL Hct (39.0-53.0) % RDW (11.5-15.5) % Plt Count (150-450) k/uL Neutrophils # (1.3-7.7) k/uL Lymphocytes # (1.0-4.8) k/uL Monocytes # (0-1.0) k/uL ESR (0-15) mm/Hr APTT (22.0-30.0) sec Sodium (137-145) mmol/L Chloride (98-107) mmol/L Carbon Dioxide (22-30) mmol/L BUN (9-20) mg/dL Creatinine (0.66-1.25) mg/dL Glucose (74-99) mg/dL Osmolality (275-295) mOsm/kg Plasma Lactic Acid Sohail (0.7-2.0) mmol/L Calcium (8.4-10.2) mg/dL Magnesium (1.6-2.3) mg/dL AST (17-59) U/L ALT (4-49) U/L Creatine Kinase >120268 H* (55-170) U/L Troponin I 0.571 H* (0.000-0.034) ng/mL Total Protein (6.3-8.2) g/dL Albumin (3.5-5.0) g/dL HDL Cholesterol 64.20 H (40.00-60.00) mg/dL Procalcitonin (0.02-0.09) ng/mL Urine Protein (Negative) Urine Blood (Negative) Urine RBC (0-5) /hpf Urine Osmolality (400-1100) mOsm/kg CSF RBC (0-10) u/L Ur Barbiturates Screen (NotDetected) Ur Amphetamines Screen (NotDetected) U Methamphetamines Scrn (NotDetected) U Benzodiazepines Scrn (NotDetected) RSV (PCR) (Not Detectd) 01/05/24 Range/Units 09:50 WBC (3.8-10.6) k/uL Hgb (13.0-17.5) gm/dL Hct (39.0-53.0) % RDW (11.5-15.5) % Plt Count (150-450) k/uL Neutrophils # (1.3-7.7) k/uL Lymphocytes # (1.0-4.8) k/uL Monocytes # (0-1.0) k/uL ESR (0-15) mm/Hr APTT (22.0-30.0) sec Sodium (137-145) mmol/L Chloride (98-107) mmol/L Carbon Dioxide (22-30) mmol/L BUN (9-20) mg/dL Creatinine (0.66-1.25) mg/dL Glucose (74-99) mg/dL Osmolality (275-295) mOsm/kg Plasma Lactic Acid Sohail (0.7-2.0) mmol/L Calcium (8.4-10.2) mg/dL Magnesium (1.6-2.3) mg/dL AST (17-59) U/L ALT (4-49) U/L Creatine Kinase (55-170) U/L Troponin I (0.000-0.034) ng/mL Total Protein (6.3-8.2) g/dL Albumin (3.5-5.0) g/dL HDL Cholesterol (40.00-60.00) mg/dL Procalcitonin (0.02-0.09) ng/mL Urine Protein (Negative) Urine Blood (Negative) Urine RBC (0-5) /hpf Urine Osmolality (400-1100) mOsm/kg CSF RBC (0-10) u/L Ur Barbiturates Screen Detected H (NotDetected) Ur Amphetamines Screen Detected H (NotDetected) U Methamphetamines Scrn Detected H (NotDetected) U Benzodiazepines Scrn Detected H (NotDetected) RSV (PCR) (Not Detectd) Microbiology - Last 24 Hours (Table) 01/04/24 13:44 Blood Culture Gram Stain - Preliminary Blood 01/04/24 13:48 Blood Culture Gram Stain - Preliminary Blood 01/04/24 22:15 CSF Gram Stain - Preliminary Cerebral Spinal Fluid Diabetes panel 01/04/24 01/04/24 01/05/24 Range/Units 12:12 19:48 06:02 Sodium 152 H 140 132 L (137-145) mmol/L Potassium 5.1 4.0 3.8 (3.5-5.1) mmol/L Chloride 116 H 109 H 102 (98-107) mmol/L Carbon Dioxide 11 L 12 L 16 L (22-30) mmol/L BUN 38 H 51 H 60 H (9-20) mg/dL Creatinine 3.47 H 3.45 H 4.02 H (0.66-1.25) mg/dL Glucose 105 H 108 H 103 H (74-99) mg/dL Calcium 8.6 7.0 L 6.0 L* (8.4-10.2) mg/dL AST 1723 H 4452 H (17-59) U/L ALT 399 H 592 H (4-49) U/L Alkaline Phosphatase 99 71 (38-126) U/L Total Protein 8.9 H 6.0 L (6.3-8.2) g/dL Albumin 5.1 H 3.3 L (3.5-5.0) g/dL Triglycerides (0.00-149.00) mg/dL HDL Cholesterol (40.00-60.00) mg/dL 01/05/24 Range/Units 06:02 Sodium (137-145) mmol/L Potassium (3.5-5.1) mmol/L Chloride (98-107) mmol/L Carbon Dioxide (22-30) mmol/L BUN (9-20) mg/dL Creatinine (0.66-1.25) mg/dL Glucose (74-99) mg/dL Calcium (8.4-10.2) mg/dL AST (17-59) U/L ALT (4-49) U/L Alkaline Phosphatase (38-126) U/L Total Protein (6.3-8.2) g/dL Albumin (3.5-5.0) g/dL Triglycerides 126.00 (0.00-149.00) mg/dL HDL Cholesterol 64.20 H (40.00-60.00) mg/dL Calcium panel 01/04/24 01/04/24 01/05/24 Range/Units 12:12 19:48 06:02 Calcium 8.6 7.0 L 6.0 L* (8.4-10.2) mg/dL Albumin 5.1 H 3.3 L (3.5-5.0) g/dL Pituitary panel 02/01/04/24 01/05/24 Range/Units 12:12 19:48 06:02 Sodium 152 H 140 132 L (137-145) mmol/L Potassium 5.1 4.0 3.8 (3.5-5.1) mmol/L Chloride 116 H 109 H 102 (98-107) mmol/L Carbon Dioxide 11 L 12 L 16 L (22-30) mmol/L BUN 38 H 51 H 60 H (9-20) mg/dL Creatinine 3.47 H 3.45 H 4.02 H (0.66-1.25) mg/dL Glucose 105 H 108 H 103 H (74-99) mg/dL Calcium 8.6 7.0 L 6.0 L* (8.4-10.2) mg/dL Adrenal panel 01/04/24 01/04/24 01/05/24 Range/Units 12:12 19:48 06:02 Sodium 152 H 140 132 L (137-145) mmol/L Potassium 5.1 4.0 3.8 (3.5-5.1) mmol/L Chloride 116 H 109 H 102 (98-107) mmol/L Carbon Dioxide 11 L 12 L 16 L (22-30) mmol/L BUN 38 H 51 H 60 H (9-20) mg/dL Creatinine 3.47 H 3.45 H 4.02 H (0.66-1.25) mg/dL Glucose 105 H 108 H 103 H (74-99) mg/dL Calcium 8.6 7.0 L 6.0 L* (8.4-10.2) mg/dL Total Bilirubin 0.7 0.5 (0.2-1.3) mg/dL AST 1723 H 4452 H (17-59) U/L ALT 399 H 592 H (4-49) U/L Alkaline Phosphatase 99 71 (38-126) U/L Total Protein 8.9 H 6.0 L (6.3-8.2) g/dL Albumin 5.1 H 3.3 L (3.5-5.0) g/dL
--- NOTE | 2024-01-05 12:31 | P.PCN ---
Description of Procedure: Preop diagnosis is acute kidney injury with rhabdomyolysis Postop same Procedure ultrasound guided triple-lumen dialysis catheter placed right groin was prepped and draped applied to sterile manner 1% lidocaine were infiltrated right groin area. Ultrasound-guided micropuncture introduced right femoral vein micropuncture guide was passed and 4 Occitan dilators were advanced over the guidewire. Then we passed the regular guidewire without any resistance dilator was advanced over the guidewire. Then triple-lumen dialysis catheter placed on top of the guidewire flushed with heparin saline hep-locked secured with 3-0 nylon dressing applied patient tolerated procedure well
--- NOTE | 2024-01-05 13:34 | PN ---
PROGRESS NOTE SUBJECTIVE: This is a 38-year-old gentleman that I saw yesterday in the emergency room. He presented to hospital having been found in the snow on the floor with acute renal failure and evidence of rhabdomyolysis. His BUN is 60, creatinine is 4 today. He had elevated troponin due to which we have been consulted. He had an echocardiogram that shows normal LV function and wall motion. I am going to stop the IV heparin at this time and treat him with aspirin, beta blockers, and nitroglycerin paste. The patient the patient is not able to take any oral medications. His CV status time OBJECTIVE: VITAL SIGNS: Stable. CHEST: Reveals good air entry bilaterally. HEART: Reveals first and second heart sounds. No gallop, no murmur. ABDOMEN: Soft, nontender. EXTREMITIES: Did not reveal any edema. Peripheral pulses are felt. LAB: Showed a hemoglobin of 11.8, potassium is 3.8, BUN is 60, creatinine is 4. CPK is elevated. ASSESSMENT AND PLAN: 1. Acute renal failure. 2. Rhabdomyolysis, non ST-segment elevation NC. PLAN: Will treat the patient with optimal medical therapy. He is not a candidate for invasive procedures at this time, has normal LV function and wall motion. I will consider an outpatient stress test when he gets better and if he has ischemia, then consider cardiac catheterization. MMODL / KYLEN: [id number] /
--- NOTE | 2024-01-05 13:59 | P.PN ---
Subjective Progress Note Date: 01/05/24 patient is a 38-year-old gentleman past medical significant for alcohol abuse, liver disease who presented to the ER for altered mental status. Patient has a history of alcohol abuse and has multiple admissions to this hospital for alcohol detox. Patient was brought in the ED by EMS after being found lying facedown in snow. There was no obvious sign of any trauma. Patient was unable to respond to any questions. EMS brought him immediately to the ER Initial lab work done in the ER showed WBC 22, hemoglobin 16.4, platelet count 274, sodium 152, potassium 5.1, BUN 38, creatinine 3.47, glucose 105, bilirubin 0.7, AST 1723, ALT 399, troponin 2.39 EKG done in the ER showed heart rate of 125, no ST segment elevation or depression seen, no T-wave inversions seen. Chest x-ray done in the ER showed no acute cardiopulmonary process CT head done showed no acute intracranial process CT cervical spine negative for any acute fracture or dislocation Patient admitted to internal medicine service. On my interview with patient, patient was much more responsive, kept on asking about getting soda and water. Stated that he has been laying on the ground for more than 15 hours. Patient is currently running a fever. Denies any chest pain or shortness of breath. Complaining of generalized body aches 01/05. Patient seen and examined. Blood work done this morning showed WBC 10.5, hemoglobin 9.8, platelet count 137, sodium 132, potassium 3.8, BUN 60, creatinine 4.02, calcium 6, CK greater than [id number]. 2D echo done showed LVEF of 50 to 55%, no mitral regurg, trace tricuspid regurg REVIEW OF SYSTEMS: Review of system cannot be obtained as patient currently agitated PHYSICAL EXAMINATION: GENERAL: The patient is alert to self, not in any acute distress. Well developed, well nourished. HEENT: Pupils are round and equally reacting to light. EOMI. No scleral icterus. No conjunctival pallor. Normocephalic, atraumatic. No pharyngeal erythema. No thyromegaly. CARDIOVASCULAR: S1 and S2 present. No murmurs, rubs, or gallops. Tachycardic PULMONARY: Coarse breath sound bilaterally, no wheezing or crackles. ABDOMEN: Soft, nontender, nondistended, normoactive bowel sounds. No palpable organomegaly. MUSCULOSKELETAL: No joint swelling or deformity. EXTREMITIES: No cyanosis, clubbing, or pedal edema. NEUROLOGICAL: Gross neurological examination did not reveal any focal deficits. SKIN: No rashes. Assessment and plan Acute metabolic encephalopathy Acute kidney injury Bacteremia Sepsis Rhabdomyolysis secondary to fall Hypothermia Hypernatremia Leukocytosis NSTEMI Acute transaminitis Fall History of alcohol abuse History of depression Monitor vital signs Monitor CBC Monitor CMP Continue telemetry monitoring Trend troponin. Follow-up on blood cultures 2D echo done showed LVEF of 50 to 55%, no mitral regurg, trace tricuspid regurg Avoid nephrotoxic agent Avoid hepatotoxic agents Continue pharmacy dosed heparin Strict I's and O's, daily weights Continue IV fluids Continue IV Rocephin and daptomycin Continue CIWA protocol continue high-dose thiamine and folic acid Nephrology recommended starting patient on dialysis, vascular surgery consulted for dialysis catheter placement ID following Cardiology following Critical care following Labs and medication were reviewed.. Continue same treatment. Continue with symptomatic treatment. Resume home medication. Monitor labs and vitals. DVT and GI prophylaxis. Further recommendations as per clinical course of the patient Dictation was produced using [employer] dictation software. please excuse any grammatical, word or spelling errors. Objective - Vital Signs Vital signs: Vital Signs Temp 98.1 F 01/05/24 08:00 Pulse 94 01/05/24 10:00 Resp 8 L 01/05/24 10:00 BP 145/97 01/05/24 10:00 Pulse Ox 93 L 01/05/24 10:00 FiO2 Intake & Output 01/04/24 01/05/24 01/05/24 18:59 06:59 18:59 Intake Total 1136.876 984.119 Output Total 30 48 58 Balance -30 1088.876 926.119 Weight 81.647 kg Intake: IV 20 0.9 NS 20 Intake, IV Titration 686.876 964.119 Amount Dextrose 5% in Water 1, 600 800 000 ml @ 200 mls/hr IV . Q5H45M [facility] with Sodium Bicarb (1 Meq/ml) 150 ml Rx#:[id number] Heparin Sod,Pork in 0.45% 86.876 114.119 NaCl 25,000 unit In 0.45 % NaCl 1 250ml.bag @ 12 UNITS/KG/HR 9.798 mls/hr IV .Q24H [facility] Rx#: [id number] cefTRIAXone 2 gm In 50 Sodium Chloride 0.9% 50 ml @ 100 mls/hr IVPB Q12HR [facility] Rx#:[id number] Oral 450 Output: Urine 30 48 58 Uretheral (Cat) 15 28 28 Other: Voiding Method Indwelling Catheter Indwelling Catheter - Labs CBC & Chem 7: 01/05/24 06:02 01/05/24 06:02 Labs: Abnormal Lab Results - Last 24 Hours (Table) 01/04/24 01/04/24 01/04/24 Range/Units 12:12 12:12 12:12 WBC 22.0 H (3.8-10.6) k/uL Hgb (13.0-17.5) gm/dL Hct (39.0-53.0) % RDW 16.0 H (11.5-15.5) % Plt Count (150-450) k/uL Neutrophils # 19.7 H (1.3-7.7) k/uL Lymphocytes # 0.4 L (1.0-4.8) k/uL Monocytes # 1.6 H (0-1.0) k/uL ESR (0-15) mm/Hr APTT (22.0-30.0) sec Sodium 152 H (137-145) mmol/L Chloride 116 H (98-107) mmol/L Carbon Dioxide 11 L (22-30) mmol/L BUN 38 H (9-20) mg/dL Creatinine 3.47 H (0.66-1.25) mg/dL Glucose 105 H (74-99) mg/dL Osmolality (275-295) mOsm/kg Plasma Lactic Acid Sohail (0.7-2.0) mmol/L Calcium (8.4-10.2) mg/dL Magnesium 3.2 H (1.6-2.3) mg/dL AST 1723 H (17-59) U/L ALT 399 H (4-49) U/L Creatine Kinase (55-170) U/L Troponin I 2.390 H* (0.000-0.034) ng/mL Total Protein 8.9 H (6.3-8.2) g/dL Albumin 5.1 H (3.5-5.0) g/dL Procalcitonin (0.02-0.09) ng/mL Urine Protein (Negative) Urine Blood (Negative) Urine RBC (0-5) /hpf Urine Osmolality (400-1100) mOsm/kg CSF RBC (0-10) u/L Ur Barbiturates Screen (NotDetected) Ur Amphetamines Screen (NotDetected) U Methamphetamines Scrn (NotDetected) U Benzodiazepines Scrn (NotDetected) RSV (PCR) (Not Detectd) 01/04/24 01/04/24 01/04/24 Range/Units 12:12 12:12 13:44 WBC (3.8-10.6) k/uL Hgb (13.0-17.5) gm/dL Hct (39.0-53.0) % RDW (11.5-15.5) % Plt Count (150-450) k/uL Neutrophils # (1.3-7.7) k/uL Lymphocytes # (1.0-4.8) k/uL Monocytes # (0-1.0) k/uL ESR 27 H (0-15) mm/Hr APTT (22.0-30.0) sec Sodium (137-145) mmol/L Chloride (98-107) mmol/L Carbon Dioxide (22-30) mmol/L BUN (9-20) mg/dL Creatinine (0.66-1.25) mg/dL Glucose (74-99) mg/dL Osmolality (275-295) mOsm/kg Plasma Lactic Acid Sohail 4.0 H* (0.7-2.0) mmol/L Calcium (8.4-10.2) mg/dL Magnesium (1.6-2.3) mg/dL AST (17-59) U/L ALT (4-49) U/L Creatine Kinase (55-170) U/L Troponin I (0.000-0.034) ng/mL Total Protein (6.3-8.2) g/dL Albumin (3.5-5.0) g/dL Procalcitonin 45.90 H (0.02-0.09) ng/mL Urine Protein (Negative) Urine Blood (Negative) Urine RBC (0-5) /hpf Urine Osmolality (400-1100) mOsm/kg CSF RBC (0-10) u/L Ur Barbiturates Screen (NotDetected) Ur Amphetamines Screen (NotDetected) U Methamphetamines Scrn (NotDetected) U Benzodiazepines Scrn (NotDetected) RSV (PCR) (Not Detectd) 01/04/24 01/04/24 01/04/24 Range/Units 13:44 14:35 14:35 WBC (3.8-10.6) k/uL Hgb (13.0-17.5) gm/dL Hct (39.0-53.0) % RDW (11.5-15.5) % Plt Count (150-450) k/uL Neutrophils # (1.3-7.7) k/uL Lymphocytes # (1.0-4.8) k/uL Monocytes # (0-1.0) k/uL ESR (0-15) mm/Hr APTT (22.0-30.0) sec Sodium (137-145) mmol/L Chloride (98-107) mmol/L Carbon Dioxide (22-30) mmol/L BUN (9-20) mg/dL Creatinine (0.66-1.25) mg/dL Glucose (74-99) mg/dL Osmolality (275-295) mOsm/kg Plasma Lactic Acid Sohail (0.7-2.0) mmol/L Calcium (8.4-10.2) mg/dL Magnesium (1.6-2.3) mg/dL AST (17-59) U/L ALT (4-49) U/L Creatine Kinase 20924 H* (55-170) U/L Troponin I 1.960 H* (0.000-0.034) ng/mL Total Protein (6.3-8.2) g/dL Albumin (3.5-5.0) g/dL Procalcitonin (0.02-0.09) ng/mL Urine Protein (Negative) Urine Blood (Negative) Urine RBC (0-5) /hpf Urine Osmolality (400-1100) mOsm/kg CSF RBC (0-10) u/L Ur Barbiturates Screen (NotDetected) Ur Amphetamines Screen (NotDetected) U Methamphetamines Scrn (NotDetected) U Benzodiazepines Scrn (NotDetected) RSV (PCR) Detected A (Not Detectd) 01/04/24 01/04/24 01/04/24 Range/Units 14:58 15:01 17:05 WBC (3.8-10.6) k/uL Hgb (13.0-17.5) gm/dL Hct (39.0-53.0) % RDW (11.5-15.5) % Plt Count (150-450) k/uL Neutrophils # (1.3-7.7) k/uL Lymphocytes # (1.0-4.8) k/uL Monocytes # (0-1.0) k/uL ESR (0-15) mm/Hr APTT (22.0-30.0) sec Sodium (137-145) mmol/L Chloride (98-107) mmol/L Carbon Dioxide (22-30) mmol/L BUN (9-20) mg/dL Creatinine (0.66-1.25) mg/dL Glucose (74-99) mg/dL Osmolality (275-295) mOsm/kg Plasma Lactic Acid Sohail (0.7-2.0) mmol/L Calcium (8.4-10.2) mg/dL Magnesium (1.6-2.3) mg/dL AST (17-59) U/L ALT (4-49) U/L Creatine Kinase (55-170) U/L Troponin I 1.620 H* (0.000-0.034) ng/mL Total Protein (6.3-8.2) g/dL Albumin (3.5-5.0) g/dL Procalcitonin (0.02-0.09) ng/mL Urine Protein 2+ H (Negative) Urine Blood Large H (Negative) Urine RBC >182 H (0-5) /hpf Urine Osmolality 363 L (400-1100) mOsm/kg CSF RBC (0-10) u/L Ur Barbiturates Screen (NotDetected) Ur Amphetamines Screen (NotDetected) U Methamphetamines Scrn (NotDetected) U Benzodiazepines Scrn (NotDetected) RSV (PCR) (Not Detectd) 01/04/24 01/04/24 01/04/24 Range/Units 19:48 20:38 22:15 WBC (3.8-10.6) k/uL Hgb (13.0-17.5) gm/dL Hct (39.0-53.0) % RDW (11.5-15.5) % Plt Count (150-450) k/uL Neutrophils # (1.3-7.7) k/uL Lymphocytes # (1.0-4.8) k/uL Monocytes # (0-1.0) k/uL ESR (0-15) mm/Hr APTT 39.9 H (22.0-30.0) sec Sodium (137-145) mmol/L Chloride 109 H (98-107) mmol/L Carbon Dioxide 12 L (22-30) mmol/L BUN 51 H (9-20) mg/dL Creatinine 3.45 H (0.66-1.25) mg/dL Glucose 108 H (74-99) mg/dL Osmolality 308 H (275-295) mOsm/kg Plasma Lactic Acid Sohail (0.7-2.0) mmol/L Calcium 7.0 L (8.4-10.2) mg/dL Magnesium (1.6-2.3) mg/dL AST (17-59) U/L ALT (4-49) U/L Creatine Kinase (55-170) U/L Troponin I (0.000-0.034) ng/mL Total Protein (6.3-8.2) g/dL Albumin (3.5-5.0) g/dL Procalcitonin (0.02-0.09) ng/mL Urine Protein (Negative) Urine Blood (Negative) Urine RBC (0-5) /hpf Urine Osmolality (400-1100) mOsm/kg CSF RBC 14 H (0-10) u/L Ur Barbiturates Screen (NotDetected) Ur Amphetamines Screen (NotDetected) U Methamphetamines Scrn (NotDetected) U Benzodiazepines Scrn (NotDetected) RSV (PCR) (Not Detectd) 01/05/24 01/05/24 01/05/24 Range/Units 06:02 06:02 06:02 WBC (3.8-10.6) k/uL Hgb 11.8 L D (13.0-17.5) gm/dL Hct 36.3 L (39.0-53.0) % RDW 15.9 H (11.5-15.5) % Plt Count 137 L (150-450) k/uL Neutrophils # 9.0 H (1.3-7.7) k/uL Lymphocytes # 0.8 L (1.0-4.8) k/uL Monocytes # (0-1.0) k/uL ESR (0-15) mm/Hr APTT 48.1 H (22.0-30.0) sec Sodium 132 L (137-145) mmol/L Chloride (98-107) mmol/L Carbon Dioxide 16 L (22-30) mmol/L BUN 60 H (9-20) mg/dL Creatinine 4.02 H (0.66-1.25) mg/dL Glucose 103 H (74-99) mg/dL Osmolality (275-295) mOsm/kg Plasma Lactic Acid Sohail (0.7-2.0) mmol/L Calcium 6.0 L* (8.4-10.2) mg/dL Magnesium (1.6-2.3) mg/dL AST 4452 H (17-59) U/L ALT 592 H (4-49) U/L Creatine Kinase (55-170) U/L Troponin I (0.000-0.034) ng/mL Total Protein 6.0 L (6.3-8.2) g/dL Albumin 3.3 L (3.5-5.0) g/dL Procalcitonin (0.02-0.09) ng/mL Urine Protein (Negative) Urine Blood (Negative) Urine RBC (0-5) /hpf Urine Osmolality (400-1100) mOsm/kg CSF RBC (0-10) u/L Ur Barbiturates Screen (NotDetected) Ur Amphetamines Screen (NotDetected) U Methamphetamines Scrn (NotDetected) U Benzodiazepines Scrn (NotDetected) RSV (PCR) (Not Detectd) 01/05/24 01/05/24 01/05/24 Range/Units 06:02 06:02 09:50 WBC (3.8-10.6) k/uL Hgb (13.0-17.5) gm/dL Hct (39.0-53.0) % RDW (11.5-15.5) % Plt Count (150-450) k/uL Neutrophils # (1.3-7.7) k/uL Lymphocytes # (1.0-4.8) k/uL Monocytes # (0-1.0) k/uL ESR (0-15) mm/Hr APTT (22.0-30.0) sec Sodium (137-145) mmol/L Chloride (98-107) mmol/L Carbon Dioxide (22-30) mmol/L BUN (9-20) mg/dL Creatinine (0.66-1.25) mg/dL Glucose (74-99) mg/dL Osmolality (275-295) mOsm/kg Plasma Lactic Acid Sohail (0.7-2.0) mmol/L Calcium (8.4-10.2) mg/dL Magnesium (1.6-2.3) mg/dL AST (17-59) U/L ALT (4-49) U/L Creatine Kinase >272098 H* (55-170) U/L Troponin I 0.571 H* (0.000-0.034) ng/mL Total Protein (6.3-8.2) g/dL Albumin (3.5-5.0) g/dL Procalcitonin (0.02-0.09) ng/mL Urine Protein (Negative) Urine Blood (Negative) Urine RBC (0-5) /hpf Urine Osmolality (400-1100) mOsm/kg CSF RBC (0-10) u/L Ur Barbiturates Screen Detected H (NotDetected) Ur Amphetamines Screen Detected H (NotDetected) U Methamphetamines Scrn Detected H (NotDetected) U Benzodiazepines Scrn Detected H (NotDetected) RSV (PCR) (Not Detectd) Microbiology - Last 24 Hours (Table) 01/04/24 13:48 Blood Culture Gram Stain - Preliminary Blood 01/04/24 13:44 Blood Culture Gram Stain - Preliminary Blood 01/04/24 22:15 CSF Gram Stain - Preliminary Cerebral Spinal Fluid
[2024-01-05] MEDS: NITROGLYCERIN OINT 1 INCH/GM PACKET TOPICAL SCH (16:08)
[2024-01-05 21:12] LABS: African American GFR (CKD) 23 (>60 ml/min/1.73 sqM); Anion Gap 7 mmol/L; Blood Urea Nitrogen 51 mg/dL (9-20); Carbon Dioxide 27 mmol/L (22-30); Chloride 96 mmol/L (98-107); Glucose 128 mg/dL (74-99); Non-African American GFR(CKD) 20 (>60 ml/min/1.73 sqM); Potassium 3.7 mmol/L (3.5-5.1); Sodium 130 mmol/L (137-145)
[2024-01-05] MEDS: amLODIPine 10 MG TAB PO SCH (21:12)
[2024-01-05] MEDS: METOPROLOL TARTRATE 25 MG TAB PO SCH (21:12)
[2024-01-05 21:16] LABS: Calcium 5.9 mg/dL (8.4-10.2)
[2024-01-05] MEDS: SODIUM CHLORIDE 0.9% 1,000 ML IV SCH (21:49)
[2024-01-05] MEDS ORDERED: VANCOMYCIN 1,500 MG in SODIUM CHLORIDE 0.9% 500 ML 500 ML IVPB ONE (22:00)
[2024-01-05] MEDS: CALCIUM GLUCONATE IN NACL 2 GM in SALINE 1 100ML.BAG IVPB ONE (22:32)
[2024-01-06 05:12] LABS: Basophils % (A) 0 %; Eosinophils % (A) 0 %; HGB 10.3 gm/dL (13.0-17.5); Lymphocytes # (A) 0.7 k/uL (1.0-4.8); Lymphocytes % (A) 8 %; MCH 27.9 pg (25.0-35.0); MCHC 34.4 g/dL (31.0-37.0); MCV 81.2 fL (80.0-100.0); Mean Platelet Volume 10.1; Monocytes # (A) 0.6 k/uL (0-1.0); Monocytes % (A) 7 %; Neutrophils # (A) 7.3 k/uL (1.3-7.7); Neutrophils % (A) 84 %; Platelet Count 106 k/uL (150-450); RBC 3.69 m/uL (4.30-5.90); RDW 15.2 % (11.5-15.5); WBC 8.7 k/uL (3.8-10.6)
[2024-01-06 05:28] LABS: African American GFR (CKD) 19 (>60 ml/min/1.73 sqM); Anion Gap 9 mmol/L; Blood Urea Nitrogen 55 mg/dL (9-20); Carbon Dioxide 25 mmol/L (22-30); Chloride 96 mmol/L (98-107); Glucose 99 mg/dL (74-99); Non-African American GFR(CKD) 16 (>60 ml/min/1.73 sqM); Potassium 3.3 mmol/L (3.5-5.1); Sodium 130 mmol/L (137-145)
[2024-01-06 05:39] LABS: Calcium 6.2 mg/dL (8.4-10.2)
[2024-01-06] MEDS: HYDROmorphone 1 MG/ML 1 ML SYRINGE IVP PRN (08:28)
[2024-01-06 09:22] LABS: ALT 573 U/L (4-49)
--- NOTE | 2024-01-06 11:31 | PN ---
PROGRESS NOTE SUBJECTIVE: This is a 38-year-old gentleman, who was admitted to the hospital, having been found unresponsive out in the cold. He had rhabdomyolysis with acute renal failure. He is being dialyzed at the moment. He seems more alert and awake today. MEDICATIONS: Current medications include: 1. Norvasc 10 daily. 2. Aspirin. 3. Nitro paste. 4. IV fluids. OBJECTIVE: VITAL SIGNS: Heart rate is 70 beats per minute, blood pressure is 130/88, and respiratory rate is 18. CHEST: Reveals diminished air entry at the bases. HEART: Reveals first and second heart sounds. No gallop. No murmur. ABDOMEN: Soft. EXTREMITIES: Did not reveal any edema. LABORATORY DATA: Labs show that the hemoglobin is 10.3, platelet count is 106, BUN is 55, and creatinine is 4.3. ASSESSMENT AND PLAN: Acute [id number] elevation myocardial infarction, acute renal failure, and acute rhabdomyolysis. Continue with the current supportive measures. Continue with the dialysis. His echocardiogram on this admission revealed normal left ventricular function. MMODL / IJN: [id number] /
--- NOTE | 2024-01-06 11:40 | P.PN ---
Subjective Progress Note Date: 01/06/24 Principal diagnosis: Reason for follow-up is fever and a positive blood culture Patient is a 38-year-old male with a past medical history of GERD for hypertension hepatitis C pancreatitis reflux history of alcoholism patient was brought into the ER by EMS after apparently the patient was noticed to be facedown in the snow when the EMS got him up he was unable to speak patient was hypothermic and subsequently brought into the ER for further evaluation, on arrival to the ER the patient did have a fever did have elevated white count chest x-ray UA was negative abdominal soft LP was done last night which came back negative as well. On today's evaluation that is 01/06/2024, Patient is afebrile patient is currently on room air and undergoing dialysis which is proceeding well per the coding tech patient complaining of hurting all over and is asking for some water no vomiting diarrhea or any other changes reported by the nursing staff. Patient white count of 8.7, creatinine 4.30 blood cultures coagulase-negative staph Objective - Vital Signs Vital signs: Vital Signs Temp 99.1 F 01/06/24 08:00 Pulse 64 01/06/24 11:00 Resp 22 01/06/24 11:00 BP 116/85 01/06/24 11:00 Pulse Ox 99 01/06/24 11:00 FiO2 Intake & Output 01/05/24 01/06/24 01/06/24 18:59 06:59 18:59 Intake Total 3202.907 2784.255 298.424 Output Total 664 134 0 Balance 2538.907 2650.255 298.424 Weight 91.3 kg Intake: IV 100 120 10 0.9 NS 100 120 10 Intake, IV Titration 2602.907 2664.255 288.424 Amount Clevidipine Butyrate 25 11.367 mg In Empty Bag 1 bag @ 1 MG/HR 2 mls/hr IV .Q24H [facility] Rx#:[id number] Dexmedetomidine/0.9% NaCl 27.421 32.968 63.179 (Pmx) 400 mcg In Empty Bag 1 bag @ 0.2 MCG/KG/HR 4.082 mls/hr IV .Q24H [facility] Rx#:[id number] Dextrose 5% in Water 1, 2400 600 000 ml @ 200 mls/hr IV . Q5H45M [facility] with Sodium Bicarb (1 Meq/ml) 150 ml Rx#:[id number] Heparin Sod,Pork in 0.45% 114.119 231.287 25.245 NaCl 25,000 unit In 0.45 % NaCl 1 250ml.bag @ 12 UNITS/KG/HR 9.798 mls/hr IV .Q24H [facility] Rx#: [id number] Sodium Chloride 0.9% 1, 1800 200 000 ml @ 200 mls/hr IV . Q5H [facility] Rx#:[id number] cefTRIAXone 2 gm In 50 Sodium Chloride 0.9% 50 ml @ 100 mls/hr IVPB Q12HR [facility] Rx#:[id number] Hemodialysis 500 Output: Urine 164 134 0 Uretheral (Cat) 84 112 Hemodialysis 500 Other: Voiding Method Indwelling Catheter Indwelling Catheter # Bowel Movements 1 - Exam GENERAL DESCRIPTION: Middle-age male lying in bed in no distress RESPIRATORY SYSTEM: Unlabored breathing , decreased breath sounds at bases HEART: S1 S2 regular rate and rhythm , ABDOMEN: Soft , no tenderness EXTREMITIES: No edema feet - Labs CBC & Chem 7: 01/06/24 04:18 01/06/24 04:18 Labs: Abnormal Lab Results - Last 24 Hours (Table) 01/05/24 01/06/24 01/06/24 Range/Units 19:51 04:18 04:18 RBC 3.69 L (4.30-5.90) m/uL Hgb 10.3 L (13.0-17.5) gm/dL Hct 30.0 L (39.0-53.0) % Plt Count 106 L (150-450) k/uL Lymphocytes # 0.7 L (1.0-4.8) k/uL APTT (22.0-30.0) sec Sodium 130 L 130 L (137-145) mmol/L Potassium 3.3 L (3.5-5.1) mmol/L Chloride 96 L 96 L (98-107) mmol/L BUN 51 H 55 H (9-20) mg/dL Creatinine 3.62 H 4.30 H (0.66-1.25) mg/dL Glucose 128 H (74-99) mg/dL Calcium 5.9 L* 6.2 L* (8.4-10.2) mg/dL ALT (4-49) U/L 01/06/24 01/06/24 Range/Units 04:18 08:16 RBC (4.30-5.90) m/uL Hgb (13.0-17.5) gm/dL Hct (39.0-53.0) % Plt Count (150-450) k/uL Lymphocytes # (1.0-4.8) k/uL APTT 39.8 H (22.0-30.0) sec Sodium (137-145) mmol/L Potassium (3.5-5.1) mmol/L Chloride (98-107) mmol/L BUN (9-20) mg/dL Creatinine (0.66-1.25) mg/dL Glucose (74-99) mg/dL Calcium (8.4-10.2) mg/dL ALT 573 H (4-49) U/L Microbiology - Last 24 Hours (Table) 01/04/24 13:44 Blood Culture Gram Stain - Final Blood Blood Culture - Final Coagulase Negative Staph Coagulase Negative Staph#2 01/04/24 13:48 Blood Culture Gram Stain - Final Blood Blood Culture - Final Coagulase Negative Staph Coagulase Negative Staph#2 01/04/24 22:15 CSF Gram Stain - Preliminary Cerebral Spinal Fluid CSF Culture - Preliminary Assessment and Plan (1) Fever with leukocytosis and leukocyte count greater than or equal to 20,000 Current Visit: Yes Status: Acute Code(s): D72.829 - ELEVATED WHITE BLOOD CELL COUNT, UNSPECIFIED SNOMED Code(s): 236091123 (2) Positive blood culture Current Visit: No Status: Acute Code(s): R78.81 - BACTEREMIA SNOMED Code(s): 661828877 Plan: 1patient presented hospital with episode of unresponsiveness by the EMS patient did have features of sepsis running a fever did have elevated white count, initial workup including a chest x-ray and UA has been negative the patient abdominal was soft on clinical examination and there was no evidence of any cellulitis with a question of possible [employer] infection however the patient did have LP completed last night by ER physician and is negative 2-patient with a positive blood culture with coagulase-negative staph with concern for possible contamination possible pathogen monitor slowly as the patient did have a fever on admission to the hospital and some cellulitis of the left lower extremity we will keep the patient on daptomycin while waiting for repeat culture to finalize Dictation was produced using [employer] dictation software. please excuse any gramma tical, word or spelling errors. Time with Patient: Less than 30
[2024-01-06 11:49] LABS: AST 2498 U/L (17-59)
--- NOTE | 2024-01-06 12:41 | P.PN ---
Subjective Progress Note Date: 01/06/24 Principal diagnosis: Acute metabolic encephalopathy, and acute alcohol withdrawal This is a 38-year-old white male with history of multiple medical problems including alcoholism, hepatitis C, hypertension, GERD, patient was brought into the ER yesterday after he was noted to be face down in the snow, upon EMS arrival, the patient was hypothermic, and altered mental status. In the ER, the patient was noted to have temp of 102.6, he was tachycardic, and was not hypotensive or hypoxic. Workup in the ER included CBC which showed leukocytosis. His bicarb was noted to be low, patient was noted to have anion gap metabolic acidosis, he was also noted to have renal failure with a BUN of 51 creatinine 3.45. His CPK was significantly elevated almost 92,000, troponin elevated at 1.6, and liver enzymes were also elevated including AST and ALT. There was evidence of blood in the urine. No drug screen was done at the time of arrival, but his alcohol level was less than 10. His RSV PCR was positive. Drug screen in the ICU was positive for barbiturates, amphetamine, metha mphetamine, and benzodiazepines. Patient was seen by many consultants including infectious disease, patient was started empirically on antibiotics in the form of Rocephin and vancomycin, and infectious disease recommended a lumbar puncture on this patient. Initial chemistry on the spinal fluid seems to be unremarkable. Final report is pending. His blood cultures today are positive for gram-positive cocci in clusters. Patient was seen by nephrology today, and recommending starting the patient on hemodialysis. Patient was felt to have acute kidney injury secondary to ATN, and severe sepsis and rhabdomyolysis, oliguric, unresponsive to diuretics, and there was no hydronephrosis on the abd ominal ultrasound. At any rate patient is scheduled to have a dialysis catheter placement today. Last night the patient was on the regular medical floor, I was made aware of this patient because his CIWA score was 20,, patient was already on a bicarb drip, and I have recommended transferring the patient out of the floor to the ICU saw this patient this morning, reviewed all his labs and workup, remains on bicarb drip, empirically on antibiotics for his presumptive severe sepsis and bacteremia as noted on blood cultures today, patient continues to have significantly elevated CPK, continues to have worsening renal failure. Blood pressure was high and I recommended Cleviprex at 2 mg/h. Also recommended a drug screen to be done. Patient did not require Precedex, he is agitation is well-controlled with Ativan. According to the patient his last alcohol drink was 2 days ago. Patient is not a great historian, seems to mumble but does not give adequate history. And he is by all means encephalopathic. But able to protect his airways, and able to cough and clear secretions. Hence did not feel the need to intubate this patient at this point. Procalcitonin level this morning is 45.9 Patient was reevaluated today on 01/06/2024, his blood cultures are actually now coagulase-negative staph, most likely blood cultures are contaminated. Patient is still restless and agitated easily, remains in the ICU, he will be undergoing dialysis today, he had dialysis yesterday. Complaining of hurting all over, patient remains a bit confused, and lethargic. His creatinine is high at 4.3, h emoglobin is down from 16.3 on admission now 10.3, platelets are coming down, hence I am stopping his heparin. CPK remains high at 158,000, patient is still receiving fluids at 200 cc/h, and he will have more dialysis today. Patient is extremely oliguric. Liver enzymes are also elevated with a AST of 2498, and ALT 573, improving compared to yesterday Objective - Vital Signs Vital signs: Vital Signs Temp 99.1 F 01/06/24 08:00 Pulse 64 01/06/24 11:00 Resp 22 01/06/24 11:00 BP 116/85 01/06/24 11:00 Pulse Ox 99 01/06/24 11:00 FiO2 Intake & Output 01/05/24 01/06/24 01/06/24 18:59 06:59 18:59 Intake Total 3202.907 2784.255 298.424 Output Total 664 134 0 Balance 2538.907 2650.255 298.424 Weight 91.3 kg Intake: IV 100 120 10 0.9 NS 100 120 10 Intake, IV Titration 2602.907 2664.255 288.424 Amount Clevidipine Butyrate 25 11.367 mg In Empty Bag 1 bag @ 1 MG/HR 2 mls/hr IV .Q24H [facility] Rx#:[id number] Dexmedetomidine/0.9% NaCl 27.421 32.968 63.179 (Pmx) 400 mcg In Empty Bag 1 bag @ 0.2 MCG/KG/HR 4.082 mls/hr IV .Q24H [facility] Rx#:[id number] Dextrose 5% in Water 1, 2400 600 000 ml @ 200 mls/hr IV . Q5H45M [facility] with Sodium Bicarb (1 Meq/ml) 150 ml Rx#:[id number] Heparin Sod,Pork in 0.45% 114.119 231.287 25.245 NaCl 25,000 unit In 0.45 % NaCl 1 250ml.bag @ 12 UNITS/KG/HR 9.798 mls/hr IV .Q24H [facility] Rx#: [id number] Sodium Chloride 0.9% 1, 1800 200 000 ml @ 200 mls/hr IV . Q5H [facility] Rx#:[id number] cefTRIAXone 2 gm In 50 Sodium Chloride 0.9% 50 ml @ 100 mls/hr IVPB Q12HR [facility] Rx#:[id number] Hemodialysis 500 Output: Urine 164 134 0 Uretheral (Cat) 84 112 Hemodialysis 500 Other: Voiding Method Indwelling Catheter Indwelling Catheter # Bowel Movements 1 - Exam General: Revealed 38-year-old white male, encephalopathic,disheveled confused, looks chronically ill. O2 saturation 99% on room air Skin: Skin is warm and dry and no rashes or lesions are noted. Small abrasion noted at the top of his nose Eye: Pupils are equal, round and reactive to light, extra-ocular movements are intact; there is normal conjunctiva bilaterally. Ears, nose, mouth and throat: There are moist mucous membranes and no oral lesions. There is evidence of bite injury at the lateral aspect of the tongue on the left. With some swelling noted of the tongue laterally Neck: The neck is supple, there is no tenderness or JVD. Cardiovascular: There is a regular rate and rhythm. No murmur, rub or gallop is appreciated. Respiratory: Diminished breath sound bilaterally no crackles rhonchi or wheezes Gastrointestinal: Soft, non-distended, non-tender abdomen without masses or organomegaly noted. There is no rebound or guarding present. Bowel sounds are unremarkable. Musculoskeletal: Normal ROM, no tenderness, There is no pedal edema. There is no calf tenderness or swelling. No cords were appreciated. Neurological: Patient seems to be confused, lethargic, however he is arousable, and follows simple instructions Psychiatric: Confused, flat affect, - Labs CBC & Chem 7: 01/06/24 04:18 01/06/24 04:18 Labs: Abnormal Lab Results - Last 24 Hours (Table) 01/05/24 01/06/24 01/06/24 Range/Units 19:51 04:18 04:18 RBC 3.69 L (4.30-5.90) m/uL Hgb 10.3 L (13.0-17.5) gm/dL Hct 30.0 L (39.0-53.0) % Plt Count 106 L (150-450) k/uL Lymphocytes # 0.7 L (1.0-4.8) k/uL APTT (22.0-30.0) sec Sodium 130 L 130 L (137-145) mmol/L Potassium 3.3 L (3.5-5.1) mmol/L Chloride 96 L 96 L (98-107) mmol/L BUN 51 H 55 H (9-20) mg/dL Creatinine 3.62 H 4.30 H (0.66-1.25) mg/dL Glucose 128 H (74-99) mg/dL Calcium 5.9 L* 6.2 L* (8.4-10.2) mg/dL AST (17-59) U/L ALT (4-49) U/L 01/06/24 01/06/24 Range/Units 04:18 08:16 RBC (4.30-5.90) m/uL Hgb (13.0-17.5) gm/dL Hct (39.0-53.0) % Plt Count (150-450) k/uL Lymphocytes # (1.0-4.8) k/uL APTT 39.8 H (22.0-30.0) sec Sodium (137-145) mmol/L Potassium (3.5-5.1) mmol/L Chloride (98-107) mmol/L BUN (9-20) mg/dL Creatinine (0.66-1.25) mg/dL Glucose (74-99) mg/dL Calcium (8.4-10.2) mg/dL AST 2498 H (17-59) U/L ALT 573 H (4-49) U/L Microbiology - Last 24 Hours (Table) 01/04/24 13:44 Blood Culture Gram Stain - Final Blood Blood Culture - Final Coagulase Negative Staph Coagulase Negative Staph#2 01/04/24 13:48 Blood Culture Gram Stain - Final Blood Blood Culture - Final Coagulase Negative Staph Coagulase Negative Staph#2 01/04/24 22:15 CSF Gram Stain - Preliminary Cerebral Spinal Fluid CSF Culture - Preliminary Assessment and Plan Assessment: Impression: Acute alcohol withdrawal Acute metabolic encephalopathy Bacteremia, however patient had coagulase-negative staph which is likely a contamination. Hypothermia on presentation. Acute transaminitis. Acute RSV infection Acute rhabdomyolysis. Acute kidney injury with oliguria and not responsive to diuretics, patient is now on hemodialysis history of alcoholism History of hepatitis C History of GERD History of pancreatitis History of IV drug abuse History of bipolar disorder and depression Recommendation: Continue to monitor in the ICU Continue antibiotics empirically, patient is now on daptomycin as recommended by infectious disease on the case, awaiting further repeat cultures Continue IV fluids patient has IV fluids running at 200 cc an hour. This is mostly for his acute rhabdomyolysis and elevated CPK Continue hemodialysis Continue to monitor daily labs including CPK, liver profile, renal profile. Continue GI and DVT prophylaxis Continue CIWA protocol Patient elena critically ill. However does not require intubation at this point yet Will continue to follow. Time with Patient: Less than 30
[2024-01-06] MEDS: DEXAMETHASONE SOD PHOSPHATE 10 MG/ML 1 ML VIAL IVP SCH (12:51)
--- NOTE | 2024-01-06 12:51 | P.PN ---
Subjective Progress Note Date: 01/06/24 patient is a 38-year-old gentleman past medical significant for alcohol abuse, liver disease who presented to the ER for altered mental status. Patient has a history of alcohol abuse and has multiple admissions to this hospital for alcohol detox. Patient was brought in the ED by EMS after being found lying facedown in snow. There was no obvious sign of any trauma. Patient was unable to respond to any questions. EMS brought him immediately to the ER Initial lab work done in the ER showed WBC 22, hemoglobin 16.4, platelet count 274, sodium 152, potassium 5.1, BUN 38, creatinine 3.47, glucose 105, bilirubin 0.7, AST 1723, ALT 399, troponin 2.39 EKG done in the ER showed heart rate of 125, no ST segment elevation or depression seen, no T-wave inversions seen. Chest x-ray done in the ER showed no acute cardiopulmonary process CT head done showed no acute intracranial process CT cervical spine negative for any acute fracture or dislocation Patient admitted to internal medicine service. On my interview with patient, patient was much more responsive, kept on asking about getting soda and water. Stated that he has been laying on the ground for more than 15 hours. Patient is currently running a fever. Denies any chest pain or shortness of breath. Complaining of generalized body aches 01/05. Patient seen and examined. Blood work done this morning showed WBC 10.5, hemoglobin 9.8, platelet count 137, sodium 132, potassium 3.8, BUN 60, creatinine 4.02, calcium 6, CK greater than 997149. 2D echo done showed LVEF of 50 to 55%, no mitral regurg, trace tricuspid regurg 01/06. Patient seen and examined. Currently in restraints. Currently getting dialysis. Complaining of pain in his tongue, apparently bit his tongue during the fall REVIEW OF SYSTEMS: Denies any chest pain. Denies any shortness of breath No complaint of nausea, vomiting or abdominal pain PHYSICAL EXAMINATION: GENERAL: The patient is alert to self, not in any acute distress. Well developed, well nourished. HEENT: Pupils are round and equally reacting to light. EOMI. No scleral icterus. No conjunctival pallor. Normocephalic, atraumatic. No pharyngeal erythema. No thyromegaly. CARDIOVASCULAR: S1 and S2 present. No murmurs, rubs, or gallops. Tachycardic PULMONARY: Coarse breath sound bilaterally, no wheezing or crackles. ABDOMEN: Soft, nontender, nondistended, normoactive bowel sounds. No palpable organomegaly. MUSCULOSKELETAL: No joint swelling or deformity. EXTREMITIES: No cyanosis, clubbing, or pedal edema. NEUROLOGICAL: Gross neurological examination did not reveal any focal deficits. SKIN: No rashes. Assessment and plan Acute metabolic encephalopathy Acute kidney injury Bacteremia Sepsis Rhabdomyolysis secondary to fall Hypothermia Hypernatremia Leukocytosis NSTEMI Acute transaminitis Fall History of alcohol abuse History of depression Monitor vital signs Monitor CBC Monitor CMP Continue telemetry monitoring Trend troponin. Follow-up on blood cultures 2D echo done showed LVEF of 50 to 55%, no mitral regurg, trace tricuspid regurg Avoid nephrotoxic agent Avoid hepatotoxic agents Strict I's and O's, daily weights Continue IV fluids Continue IV Rocephin and daptomycin Continue CIWA protocol continue high-dose thiamine and folic acid Continue dialysis per nephrology ID following Cardiology following Critical care following Labs and medication were reviewed.. Continue same treatment. Continue with symptomatic treatment. Resume home medication. Monitor labs and vitals. DVT and GI prophylaxis. Further recommendations as per clinical course of the patient Dictation was produced using [employer] dictation software. please excuse any grammatical, word or spelling errors. Objective - Vital Signs Vital signs: Vital Signs Temp 99.1 F 01/06/24 08:00 Pulse 64 01/06/24 11:00 Resp 22 01/06/24 11:00 BP 116/85 01/06/24 11:00 Pulse Ox 99 01/06/24 11:00 FiO2 Intake & Output 01/05/24 01/06/24 01/06/24 18:59 06:59 18:59 Intake Total 3202.907 2784.255 298.424 Output Total 664 134 0 Balance 2538.907 2650.255 298.424 Weight 91.3 kg Intake: IV 100 120 10 0.9 NS 100 120 10 Intake, IV Titration 2602.907 2664.255 288.424 Amount Clevidipine Butyrate 25 11.367 mg In Empty Bag 1 bag @ 1 MG/HR 2 mls/hr IV .Q24H [facility] Rx#:[id number] Dexmedetomidine/0.9% NaCl 27.421 32.968 63.179 (Pmx) 400 mcg In Empty Bag 1 bag @ 0.2 MCG/KG/HR 4.082 mls/hr IV .Q24H [facility] Rx#:[id number] Dextrose 5% in Water 1, 2400 600 000 ml @ 200 mls/hr IV . Q5H45M [facility] with Sodium Bicarb (1 Meq/ml) 150 ml Rx#:[id number] Heparin Sod,Pork in 0.45% 114.119 231.287 25.245 NaCl 25,000 unit In 0.45 % NaCl 1 250ml.bag @ 12 UNITS/KG/HR 9.798 mls/hr IV .Q24H [facility] Rx#: [id number] Sodium Chloride 0.9% 1, 1800 200 000 ml @ 200 mls/hr IV . Q5H [facility] Rx#:[id number] cefTRIAXone 2 gm In 50 Sodium Chloride 0.9% 50 ml @ 100 mls/hr IVPB Q12HR [facility] Rx#:[id number] Hemodialysis 500 Output: Urine 164 134 0 Uretheral (Cat) 84 112 Hemodialysis 500 Other: Voiding Method Indwelling Catheter Indwelling Catheter # Bowel Movements 1 - Labs CBC & Chem 7: 01/06/24 04:18 01/06/24 04:18 Labs: Abnormal Lab Results - Last 24 Hours (Table) 01/05/24 01/06/24 01/06/24 Range/Units 19:51 04:18 04:18 RBC 3.69 L (4.30-5.90) m/uL Hgb 10.3 L (13.0-17.5) gm/dL Hct 30.0 L (39.0-53.0) % Plt Count 106 L (150-450) k/uL Lymphocytes # 0.7 L (1.0-4.8) k/uL APTT (22.0-30.0) sec Sodium 130 L 130 L (137-145) mmol/L Potassium 3.3 L (3.5-5.1) mmol/L Chloride 96 L 96 L (98-107) mmol/L BUN 51 H 55 H (9-20) mg/dL Creatinine 3.62 H 4.30 H (0.66-1.25) mg/dL Glucose 128 H (74-99) mg/dL Calcium 5.9 L* 6.2 L* (8.4-10.2) mg/dL AST (17-59) U/L ALT (4-49) U/L Creatine Kinase (55-170) U/L 01/06/24 01/06/24 01/06/24 Range/Units 04:18 08:16 08:16 RBC (4.30-5.90) m/uL Hgb (13.0-17.5) gm/dL Hct (39.0-53.0) % Plt Count (150-450) k/uL Lymphocytes # (1.0-4.8) k/uL APTT 39.8 H (22.0-30.0) sec Sodium (137-145) mmol/L Potassium (3.5-5.1) mmol/L Chloride (98-107) mmol/L BUN (9-20) mg/dL Creatinine (0.66-1.25) mg/dL Glucose (74-99) mg/dL Calcium (8.4-10.2) mg/dL AST 2498 H (17-59) U/L ALT 573 H (4-49) U/L Creatine Kinase 208526 H* (55-170) U/L Microbiology - Last 24 Hours (Table) 01/04/24 13:44 Blood Culture Gram Stain - Final Blood Blood Culture - Final Coagulase Negative Staph Coagulase Negative Staph#2 01/04/24 13:48 Blood Culture Gram Stain - Final Blood Blood Culture - Final Coagulase Negative Staph Coagulase Negative Staph#2 01/04/24 22:15 CSF Gram Stain - Preliminary Cerebral Spinal Fluid CSF Culture - Preliminary
[2024-01-06] MEDS: [UNRECOGNIZED DRUG - REMARK] IV SCH (14:46)
--- NOTE | 2024-01-06 14:58 | P.PN ---
Subjective Progress Note Date: 01/06/24 Patient is seen in follow-up for GLORIA requiring HD. No new complaints. Does not remember having HD today. Vital signs are stable. General: No acute distress. HEENT: Head exam is unremarkable. LUNGS: No audible rhonchi or wheezes. HEART: Rate and Rhythm are regular. ABDOMEN: No edema. Objective - Vital Signs Vital signs: Vital Signs Temp 99.1 F 01/06/24 08:00 Pulse 70 01/06/24 08:00 Resp 24 01/06/24 08:00 BP 135/88 01/06/24 08:00 Pulse Ox 93 L 01/06/24 08:00 FiO2 Intake & Output 01/05/24 01/06/24 01/06/24 18:59 06:59 18:59 Intake Total 3202.907 2784.255 291.892 Output Total 664 134 0 Balance 2538.907 2650.255 291.892 Weight 91.3 kg Intake: IV 100 120 10 0.9 NS 100 120 10 Intake, IV Titration 2602.907 2664.255 281.892 Amount Clevidipine Butyrate 25 11.367 mg In Empty Bag 1 bag @ 1 MG/HR 2 mls/hr IV .Q24H [facility] Rx#:[id number] Dexmedetomidine/0.9% NaCl 27.421 32.968 63.179 (Pmx) 400 mcg In Empty Bag 1 bag @ 0.2 MCG/KG/HR 4.082 mls/hr IV .Q24H [facility] Rx#:[id number] Dextrose 5% in Water 1, 2400 600 000 ml @ 200 mls/hr IV . Q5H45M [facility] with Sodium Bicarb (1 Meq/ml) 150 ml Rx#:[id number] Heparin Sod,Pork in 0.45% 114.119 231.287 18.713 NaCl 25,000 unit In 0.45 % NaCl 1 250ml.bag @ 12 UNITS/KG/HR 9.798 mls/hr IV .Q24H [facility] Rx#: [id number] Sodium Chloride 0.9% 1, 1800 200 000 ml @ 200 mls/hr IV . Q5H [facility] Rx#:[id number] cefTRIAXone 2 gm In 50 Sodium Chloride 0.9% 50 ml @ 100 mls/hr IVPB Q12HR [facility] Rx#:[id number] Hemodialysis 500 Output: Urine 164 134 0 Uretheral (Cat) 84 112 Hemodialysis 500 Other: Voiding Method Indwelling Catheter Indwelling Catheter # Bowel Movements 1 - Labs CBC & Chem 7: 01/06/24 04:18 01/06/24 04:18 Labs: Abnormal Lab Results - Last 24 Hours (Table) 01/05/24 01/05/24 01/06/24 Range/Units 06:02 19:51 04:18 RBC 3.69 L (4.30-5.90) m/uL Hgb 10.3 L (13.0-17.5) gm/dL Hct 30.0 L (39.0-53.0) % Plt Count 106 L (150-450) k/uL Lymphocytes # 0.7 L (1.0-4.8) k/uL APTT (22.0-30.0) sec Sodium 130 L (137-145) mmol/L Potassium (3.5-5.1) mmol/L Chloride 96 L (98-107) mmol/L BUN 51 H (9-20) mg/dL Creatinine 3.62 H (0.66-1.25) mg/dL Glucose 128 H (74-99) mg/dL Calcium 5.9 L* (8.4-10.2) mg/dL HDL Cholesterol 64.20 H (40.00-60.00) mg/dL 01/06/24 01/06/24 Range/Units 04:18 04:18 RBC (4.30-5.90) m/uL Hgb (13.0-17.5) gm/dL Hct (39.0-53.0) % Plt Count (150-450) k/uL Lymphocytes # (1.0-4.8) k/uL APTT 39.8 H (22.0-30.0) sec Sodium 130 L (137-145) mmol/L Potassium 3.3 L (3.5-5.1) mmol/L Chloride 96 L (98-107) mmol/L BUN 55 H (9-20) mg/dL Creatinine 4.30 H (0.66-1.25) mg/dL Glucose (74-99) mg/dL Calcium 6.2 L* (8.4-10.2) mg/dL HDL Cholesterol (40.00-60.00) mg/dL Microbiology - Last 24 Hours (Table) 01/04/24 13:44 Blood Culture Gram Stain - Final Blood Blood Culture - Final Coagulase Negative Staph Coagulase Negative Staph#2 01/04/24 13:48 Blood Culture Gram Stain - Final Blood Blood Culture - Final Coagulase Negative Staph Coagulase Negative Staph#2 01/04/24 22:15 CSF Gram Stain - Preliminary Cerebral Spinal Fluid CSF Culture - Preliminary Assessment and Plan Plan: Assessment: 1. Acute kidney injury secondary to ATN secondary to severe sepsis and rhabdomyolysis. Baseline creatinine 0.5-0.6 and up to 4.02 01/05 started HD. Oliguric. Diuretic unresponsive. No hydronephrosis noted on abdominal ultrasound. 2. Rhabdomyolysis secondary to fall/immobility. CK level greater than 160,000 today. 3. Severe sepsis secondary to gram-positive bacteremia. On IV antibiotics. 4. Metabolic acidosis secondary to acute kidney injury. 5. Initially hypernatremia and he did receive half-normal saline yesterday. Sodium level last night was 140 and fluids were changed to isotonic bicarb drip. Sodium today is 132. 6. Hypocalcemia secondary to acute kidney injury and rhabdomyolysis. Expect improvement postdialysis. Avoid aggressive calcium replacement to avoid calcium phosphate precipitation in tissues. Plan: Maintain normal saline at 200 cc an hour. Received first HD yesterday, plan again today. Avoid nephrotoxins. Follow-up cultures. Monitor for renal recovery.
[2024-01-06] MEDS: ASPIRIN 300 MG SUPP RECTAL SCH (17:12)
[2024-01-06] MEDS: POTASSIUM CHLORIDE 20 MEQ in WATER FOR INJECTION 1 100ML.BAG IVPB SCH (18:41)
[2024-01-06] MEDS: POTASSIUM CHLORIDE ER 20 MEQ TAB.ER PO STA (19:04)
[2024-01-07 04:09] LABS: Basophils % (A) 0 %; Eosinophils % (A) 0 %; HGB 10.5 gm/dL (13.0-17.5); Lymphocytes # (A) 0.4 k/uL (1.0-4.8); Lymphocytes % (A) 5 %; MCH 28.4 pg (25.0-35.0); MCHC 34.1 g/dL (31.0-37.0); MCV 83.4 fL (80.0-100.0); Mean Platelet Volume 10.1; Monocytes # (A) 0.4 k/uL (0-1.0); Monocytes % (A) 5 %; Neutrophils # (A) 6.4 k/uL (1.3-7.7); Neutrophils % (A) 88 %; Platelet Count 109 k/uL (150-450); RBC 3.71 m/uL (4.30-5.90); RDW 15.2 % (11.5-15.5); WBC 7.3 k/uL (3.8-10.6)
[2024-01-07 04:19] LABS: African American GFR (CKD) 17 (>60 ml/min/1.73 sqM); Anion Gap 9 mmol/L; Blood Urea Nitrogen 49 mg/dL (9-20); Calcium 6.9 mg/dL (8.4-10.2); Carbon Dioxide 19 mmol/L (22-30); Chloride 105 mmol/L (98-107); Glucose 105 mg/dL (74-99); Non-African American GFR(CKD) 15 (>60 ml/min/1.73 sqM); Potassium 4.8 mmol/L (3.5-5.1); Sodium 133 mmol/L (137-145)
[2024-01-07 09:48] LABS: ALT 585 U/L (4-49)
[2024-01-07 10:29] LABS: AST 1824 U/L (17-59)
[2024-01-07 10:47] LABS: Creatine Kinase 89867 U/L (55-170)
--- NOTE | 2024-01-07 11:40 | P.PN ---
Subjective Progress Note Date: 01/07/24 Patient is seen in follow-up for GLORIA requiring HD. No new complaints. Vital signs are stable. General: No acute distress. HEENT: Head exam is unremarkable. LUNGS: No audible rhonchi or wheezes. HEART: Rate and Rhythm are regular. ABDOMEN: No edema. Objective - Vital Signs Vital signs: Vital Signs Temp 97.7 F 01/07/24 08:00 Pulse 53 L 01/07/24 09:00 Resp 12 01/07/24 09:00 BP 167/103 01/07/24 09:00 Pulse Ox 99 01/07/24 09:00 FiO2 Intake & Output 01/06/24 01/07/24 01/07/24 18:59 06:59 18:59 Intake Total 3268.424 2870 715.038 Output Total 515 15 105 Balance 2753.424 2855 610.038 Intake: IV 2380 2770 690 0.9 NS 10 Invasive Line 1 30 30 10 Invasive Line 2 30 30 10 Invasive Line 3 30 30 10 Invasive Line 4 30 30 10 Mvi, Adult No.4 with Vit 800 200 400 K 10 ml Thiamine 100 mg Folic Acid 1 mg In Sodium Chloride 0.9% 1,000 ml @ 200 mls/hr IV DAILY [facility] Rx#:[id number] Potassium Chloride 20 meq 200 In Water For Injection 1 100ml.bag @ 50 mls/hr IVPB Q2H [facility] Rx#: [id number] Sodium Chloride 0.9% 1, 1400 2200 200 000 ml @ 200 mls/hr IV . Q5H [facility] Rx#:[id number] cefTRIAXone 2 gm In 50 50 50 Sodium Chloride 0.9% 50 ml @ 100 mls/hr IVPB Q12HR [facility] Rx#:[id number] Intake, IV Titration 388.424 100 25.038 Amount Dexmedetomidine/0.9% NaCl 163.179 100 25.038 (Pmx) 400 mcg In Empty Bag 1 bag @ 0.2 MCG/KG/HR 4.082 mls/hr IV .Q24H [facility] Rx#:[id number] Heparin Sod,Pork in 0.45% 25.245 NaCl 25,000 unit In 0.45 % NaCl 1 250ml.bag @ 12 UNITS/KG/HR 9.798 mls/hr IV .Q24H [facility] Rx#: [id number] Sodium Chloride 0.9% 1, 200 000 ml @ 200 mls/hr IV . Q5H [facility] Rx#:[id number] Oral 0 Hemodialysis 500 Output: Urine 15 15 105 Hemodialysis 500 Other: Voiding Method Indwelling Catheter Indwelling Catheter Indwelling Catheter # Bowel Movements 0 1 - Labs CBC & Chem 7: 01/07/24 03:49 01/07/24 03:44 Labs: Abnormal Lab Results - Last 24 Hours (Table) 01/06/24 01/06/24 01/07/24 Range/Units 08:16 08:16 03:44 RBC (4.30-5.90) m/uL Hgb (13.0-17.5) gm/dL Hct (39.0-53.0) % Plt Count (150-450) k/uL Lymphocytes # (1.0-4.8) k/uL Sodium 133 L (137-145) mmol/L Carbon Dioxide 19 L (22-30) mmol/L BUN 49 H (9-20) mg/dL Creatinine 4.60 H (0.66-1.25) mg/dL Glucose 105 H (74-99) mg/dL Calcium 6.9 L (8.4-10.2) mg/dL AST 2498 H (17-59) U/L ALT (4-49) U/L Creatine Kinase 602029 H* (55-170) U/L 01/07/24 01/07/24 Range/Units 03:49 08:54 RBC 3.71 L (4.30-5.90) m/uL Hgb 10.5 L (13.0-17.5) gm/dL Hct 31.0 L (39.0-53.0) % Plt Count 109 L (150-450) k/uL Lymphocytes # 0.4 L (1.0-4.8) k/uL Sodium (137-145) mmol/L Carbon Dioxide (22-30) mmol/L BUN (9-20) mg/dL Creatinine (0.66-1.25) mg/dL Glucose (74-99) mg/dL Calcium (8.4-10.2) mg/dL AST 1824 H (17-59) U/L ALT 585 H (4-49) U/L Creatine Kinase 12634 H* (55-170) U/L Microbiology - Last 24 Hours (Table) 01/04/24 22:15 CSF Gram Stain - Preliminary Cerebral Spinal Fluid CSF Culture - Preliminary 01/04/24 13:44 Blood Culture Gram Stain - Final Blood Blood Culture - Final Coagulase Negative Staph Coagulase Negative Staph#2 01/04/24 13:48 Blood Culture Gram Stain - Final Blood Blood Culture - Final Coagulase Negative Staph Coagulase Negative Staph#2 Assessment and Plan Plan: Assessment: 1. Acute kidney injury secondary to ATN secondary to severe sepsis and r habdomyolysis. Baseline creatinine 0.5-0.6 and up to 4.02 01/05 started HD. Oliguric. Diuretic unresponsive. No hydronephrosis noted on abdominal ultrasound. 2. Rhabdomyolysis secondary to fall/immobility. CK level greater than 160,000 today. 3. Severe sepsis secondary to gram-positive bacteremia. On IV antibiotics. 4. Metabolic acidosis secondary to acute kidney injury. 5. Initially hypernatremia, now mildly hyponatremic at 133. 6. Hypocalcemia secondary to acute kidney injury and rhabdomyolysis. Expect improvement postdialysis. Avoid aggressive calcium replacement to avoid calcium phosphate precipitation in tissues. Plan: CPK trending down, decrease IV fluids 130cc/per hour Procedures HD 01/05 then again yesterday. Next HD third treatment will be tomorrow Avoid nephrotoxins. Follow-up cultures. Monitor for renal recovery.
[2024-01-07] MEDS: HEPARIN SODIUM,PORCINE 5,000 UNIT/ML 1 ML VIAL SQ SCH (11:48)
[2024-01-07] MEDS: SODIUM CHLORIDE 0.9% 1,000 ML IV SCH (11:49)
--- NOTE | 2024-01-07 12:25 | P.PN ---
Subjective Progress Note Date: 01/07/24 patient is a 38-year-old gentleman past medical significant for alcohol abuse, liver disease who presented to the ER for altered mental status. Patient has a history of alcohol abuse and has multiple admissions to this hospital for alcohol detox. Patient was brought in the ED by EMS after being found lying facedown in snow. There was no obvious sign of any trauma. Patient was unable to respond to any questions. EMS brought him immediately to the ER Initial lab work done in the ER showed WBC 22, hemoglobin 16.4, platelet count 274, sodium 152, potassium 5.1, BUN 38, creatinine 3.47, glucose 105, bilirubin 0.7, AST 1723, ALT 399, troponin 2.39 EKG done in the ER showed heart rate of 125, no ST segment elevation or depression seen, no T-wave inversions seen. Chest x-ray done in the ER showed no acute cardiopulmonary process CT head done showed no acute intracranial process CT cervical spine negative for any acute fracture or dislocation Patient admitted to internal medicine service. On my interview with patient, patient was much more responsive, kept on asking about getting soda and water. Stated that he has been laying on the ground for more than 15 hours. Patient is currently running a fever. Denies any chest pain or shortness of breath. Complaining of generalized body aches 01/05. Patient seen and examined. Blood work done this morning showed WBC 10.5, hemoglobin 9.8, platelet count 137, sodium 132, potassium 3.8, BUN 60, creatinine 4.02, calcium 6, CK greater than [id number]. 2D echo done showed LVEF of 50 to 55%, no mitral regurg, trace tricuspid regurg 01/06. Patient seen and examined. Currently in restraints. Currently getting dialysis. Complaining of pain in his tongue, apparently bit his tongue during the fall. 01/07. Patient seen and examined. Continues to be in ICU. Currently on Precedex and IV fluids. Patient currently off restraints, is alert to self. REVIEW OF SYSTEMS: Denies any chest pain. Denies any shortness of breath No complaint of nausea, vomiting or abdominal pain PHYSICAL EXAMINATION: GENERAL: The patient is alert to self, not in any acute distress. Well developed, well nourished. HEENT: Pupils are round and equally reacting to light. EOMI. No scleral icterus. No conjunctival pallor. Normocephalic, atraumatic. No pharyngeal erythema. No thyromegaly. CARDIOVASCULAR: S1 and S2 present. No murmurs, rubs, or gallops. Tachycardic PULMONARY: Coarse breath sound bilaterally, no wheezing or crackles. ABDOMEN: Soft, nontender, nondistended, normoactive bowel sounds. No palpable organomegaly. MUSCULOSKELETAL: No joint swelling or deformity. EXTREMITIES: No cyanosis, clubbing, or pedal edema. NEUROLOGICAL: Gross neurological examination did not reveal any focal deficits. SKIN: No rashes. Assessment and plan Acute metabolic encephalopathy Acute kidney injury Bacteremia Sepsis Rhabdomyolysis secondary to fall Hypothermia Hypernatremia Leukocytosis NSTEMI Acute transaminitis Fall History of alcohol abuse History of depression Monitor vital signs Monitor CBC Monitor CMP Continue telemetry monitoring Trend troponin. Follow-up on blood cultures 2D echo done showed LVEF of 50 to 55%, no mitral regurg, trace tricuspid regurg Avoid nephrotoxic agent Avoid hepatotoxic agents Strict I's and O's, daily weights Continue IV fluids Continue IV Rocephin and daptomycin Continue CIWA protocol continue high-dose thiamine and folic acid Continue dialysis per nephrology ID following Cardiology following Critical care following Labs and medication were reviewed.. Continue same treatment. Continue with symptomatic treatment. Resume home medication. Monitor labs and vitals. DVT and GI prophylaxis. Further recommendations as per clinical course of the patient Dictation was produced using [employer] dictation software. please excuse any grammatical, word or spelling errors. Objective - Vital Signs Vital signs: Vital Signs Temp 97.7 F 01/07/24 08:00 Pulse 53 L 01/07/24 09:00 Resp 12 01/07/24 09:00 BP 167/103 01/07/24 09:00 Pulse Ox 99 01/07/24 09:00 FiO2 Intake & Output 01/06/24 01/07/24 01/07/24 18:59 06:59 18:59 Intake Total 3268.424 2870 715.038 Output Total 515 15 105 Balance 2753.424 2855 610.038 Intake: IV 2380 2770 690 0.9 NS 10 Invasive Line 1 30 30 10 Invasive Line 2 30 30 10 Invasive Line 3 30 30 10 Invasive Line 4 30 30 10 Mvi, Adult No.4 with Vit 800 200 400 K 10 ml Thiamine 100 mg Folic Acid 1 mg In Sodium Chloride 0.9% 1,000 ml @ 200 mls/hr IV DAILY [facility] Rx#:[id number] Potassium Chloride 20 meq 200 In Water For Injection 1 100ml.bag @ 50 mls/hr IVPB Q2H [facility] Rx#: [id number] Sodium Chloride 0.9% 1, 1400 2200 200 000 ml @ 200 mls/hr IV . Q5H [facility] Rx#:[id number] cefTRIAXone 2 gm In 50 50 50 Sodium Chloride 0.9% 50 ml @ 100 mls/hr IVPB Q12HR [facility] Rx#:[id number] Intake, IV Titration 388.424 100 25.038 Amount Dexmedetomidine/0.9% NaCl 163.179 100 25.038 (Pmx) 400 mcg In Empty Bag 1 bag @ 0.2 MCG/KG/HR 4.082 mls/hr IV .Q24H [facility] Rx#:[id number] Heparin Sod,Pork in 0.45% 25.245 NaCl 25,000 unit In 0.45 % NaCl 1 250ml.bag @ 12 UNITS/KG/HR 9.798 mls/hr IV .Q24H [facility] Rx#: [id number] Sodium Chloride 0.9% 1, 200 000 ml @ 200 mls/hr IV . Q5H [facility] Rx#:[id number] Oral 0 Hemodialysis 500 Output: Urine 15 15 105 Hemodialysis 500 Other: Voiding Method Indwelling Catheter Indwelling Catheter Indwelling Catheter # Bowel Movements 0 1 - Labs CBC & Chem 7: 01/07/24 03:49 01/07/24 03:44 Labs: Abnormal Lab Results - Last 24 Hours (Table) 01/06/24 01/06/24 01/07/24 Range/Units 08:16 08:16 03:44 RBC (4.30-5.90) m/uL Hgb (13.0-17.5) gm/dL Hct (39.0-53.0) % Plt Count (150-450) k/uL Lymphocytes # (1.0-4.8) k/uL Sodium 133 L (137-145) mmol/L Carbon Dioxide 19 L (22-30) mmol/L BUN 49 H (9-20) mg/dL Creatinine 4.60 H (0.66-1.25) mg/dL Glucose 105 H (74-99) mg/dL Calcium 6.9 L (8.4-10.2) mg/dL AST 2498 H (17-59) U/L ALT 573 H (4-49) U/L Creatine Kinase [id number] H* (55-170) U/L 01/07/24 Range/Units 03:49 RBC 3.71 L (4.30-5.90) m/uL Hgb 10.5 L (13.0-17.5) gm/dL Hct 31.0 L (39.0-53.0) % Plt Count 109 L (150-450) k/uL Lymphocytes # 0.4 L (1.0-4.8) k/uL Sodium (137-145) mmol/L Carbon Dioxide (22-30) mmol/L BUN (9-20) mg/dL Creatinine (0.66-1.25) mg/dL Glucose (74-99) mg/dL Calcium (8.4-10.2) mg/dL AST (17-59) U/L ALT (4-49) U/L Creatine Kinase (55-170) U/L Microbiology - Last 24 Hours (Table) 01/04/24 22:15 CSF Gram Stain - Preliminary Cerebral Spinal Fluid CSF Culture - Preliminary 01/04/24 13:44 Blood Culture Gram Stain - Final Blood Blood Culture - Final Coagulase Negative Staph Coagulase Negative Staph#2 01/04/24 13:48 Blood Culture Gram Stain - Final Blood Blood Culture - Final Coagulase Negative Staph Coagulase Negative Staph#2
--- NOTE | 2024-01-07 12:42 | P.PN ---
Subjective Progress Note Date: 01/07/24 Principal diagnosis: Acute metabolic encephalopathy, and acute alcohol withdrawal This is a 38-year-old white male with history of multiple medical problems including alcoholism, hepatitis C, hypertension, GERD, patient was brought into the ER yesterday after he was noted to be face down in the snow, upon EMS arrival, the patient was hypothermic, and altered mental status. In the ER, the patient was noted to have temp of 102.6, he was tachycardic, and was not hypotensive or hypoxic. Workup in the ER included CBC which showed leukocytosis. His bicarb was noted to be low, patient was noted to have anion gap metabolic acidosis, he was also noted to have renal failure with a BUN of 51 creatinine 3.45. His CPK was significantly elevated almost 92,000, troponin elevated at 1.6, and liver enzymes were also elevated including AST and ALT. There was evidence of blood in the urine. No drug screen was done at the time of arrival, but his alcohol level was less than 10. His RSV PCR was positive. Drug screen in the ICU was positive for barbiturates, amphetamine, metha mphetamine, and benzodiazepines. Patient was seen by many consultants including infectious disease, patient was started empirically on antibiotics in the form of Rocephin and vancomycin, and infectious disease recommended a lumbar puncture on this patient. Initial chemistry on the spinal fluid seems to be unremarkable. Final report is pending. His blood cultures today are positive for gram-positive cocci in clusters. Patient was seen by nephrology today, and recommending starting the patient on hemodialysis. Patient was felt to have acute kidney injury secondary to ATN, and severe sepsis and rhabdomyolysis, oliguric, unresponsive to diuretics, and there was no hydronephrosis on the abd ominal ultrasound. At any rate patient is scheduled to have a dialysis catheter placement today. Last night the patient was on the regular medical floor, I was made aware of this patient because his CIWA score was 20,, patient was already on a bicarb drip, and I have recommended transferring the patient out of the floor to the ICU saw this patient this morning, reviewed all his labs and workup, remains on bicarb drip, empirically on antibiotics for his presumptive severe sepsis and bacteremia as noted on blood cultures today, patient continues to have significantly elevated CPK, continues to have worsening renal failure. Blood pressure was high and I recommended Cleviprex at 2 mg/h. Also recommended a drug screen to be done. Patient did not require Precedex, he is agitation is well-controlled with Ativan. According to the patient his last alcohol drink was 2 days ago. Patient is not a great historian, seems to mumble but does not give adequate history. And he is by all means encephalopathic. But able to protect his airways, and able to cough and clear secretions. Hence did not feel the need to intubate this patient at this point. Procalcitonin level this morning is 45.9 Patient was reevaluated today on 01/06/2024, his blood cultures are actually now coagulase-negative staph, most likely blood cultures are contaminated. Patient is still restless and agitated easily, remains in the ICU, he will be undergoing dialysis today, he had dialysis yesterday. Complaining of hurting all over, patient remains a bit confused, and lethargic. His creatinine is high at 4.3, h emoglobin is down from 16.3 on admission now 10.3, platelets are coming down, hence I am stopping his heparin. CPK remains high at 158,000, patient is still receiving fluids at 200 cc/h, and he will have more dialysis today. Patient is extremely oliguric. Liver enzymes are also elevated with a AST of 2498, and ALT 573, improving compared to yesterday Patient was reevaluated today on 01/07/2024, remains in the ICU, marginal at best. On 3 L nasal cannula, remains a bit encephalopathic with a slight improvement in his overall mental status patient knows that he is at [facility], he realized the year is 2023. Patient continues to have marginal urine output, he is oliguric, intermittently on hemodialysis, patient remains on daptomycin and ceftriaxone, blood cultures were contaminated with staph/coagulase negative. Spinal fluid cultures have been negative CPK is coming down today, he is down to 89,000 from 159,000 yesterday. Renal functioning is about the same with a creatinine 4.60 and BUN of 49, Liver enzymes are steadily improving. And ammonia level is less than 90. His IV fluid remains at 200 cc/h patient is receiving MVI. Objective - Vital Signs Vital signs: Vital Signs Temp 97.7 F 02/18/24 08:00 Pulse 53 L 01/07/24 09:00 Resp 12 01/07/24 09:00 BP 167/103 01/07/24 09:00 Pulse Ox 99 01/07/24 09:00 FiO2 Intake & Output 01/06/24 01/07/24 01/07/24 18:59 06:59 18:59 Intake Total 3268.424 2870 1427.220 Output Total 515 15 140 Balance 2753.424 2855 1287.220 Intake: IV 2380 2770 1330 0.9 NS 10 Invasive Line 1 30 30 20 Invasive Line 2 30 30 20 Invasive Line 3 30 30 20 Invasive Line 4 30 30 20 Mvi, Adult No.4 with Vit 781 658 4733 K 10 ml Thiamine 100 mg Folic Acid 1 mg In Sodium Chloride 0.9% 1,000 ml @ 200 mls/hr IV DAILY [facility] Rx#:[id number] Potassium Chloride 20 meq 200 In Water For Injection 1 100ml.bag @ 50 mls/hr IVPB Q2H [facility] Rx#: [id number] Sodium Chloride 0.9% 1, 1400 2200 200 000 ml @ 200 mls/hr IV . Q5H [facility] Rx#:[id number] cefTRIAXone 2 gm In 50 50 50 Sodium Chloride 0.9% 50 ml @ 100 mls/hr IVPB Q12HR [facility] Rx#:[id number] Intake, IV Titration 388.424 100 97.220 Amount DAPTOmycin 500 mg In 50 Sodium Chloride 0.9% 50 ml @ 100 mls/hr IVPB Q48H [facility] Rx#:[id number] Dexmedetomidine/0.9% NaCl 163.179 100 47.220 (Pmx) 400 mcg In Empty Bag 1 bag @ 0.2 MCG/KG/HR 4.082 mls/hr IV .Q24H [facility] Rx#:[id number] Heparin Sod,Pork in 0.45% 25.245 NaCl 25,000 unit In 0.45 % NaCl 1 250ml.bag @ 12 UNITS/KG/HR 9.798 mls/hr IV .Q24H [facility] Rx#: [id number] Sodium Chloride 0.9% 1, 200 000 ml @ 200 mls/hr IV . Q5H [facility] Rx#:[id number] Oral 0 Hemodialysis 500 Output: Urine 15 15 140 Hemodialysis 500 Other: Voiding Method Indwelling Catheter Indwelling Catheter Indwelling Catheter # Bowel Movements 0 1 - Exam General: Revealed 38-year-old white male, encephalopathic,disheveled confused, looks chronically ill. O2 saturation 99% on 2 L nasal cannula. Skin: Skin is warm and dry and no rashes or lesions are noted. Small abrasion noted at the top of his nose Eye: Pupils are equal, round and reactive to light, extra-ocular movements are intact; there is normal conjunctiva bilaterally. Ears, nose, mouth and throat: There are moist mucous membranes and no oral lesions. There is evidence of bite injury at the lateral aspect of the tongue on the left. With some swelling noted of the tongue laterally Neck: The neck is supple, there is no tenderness or JVD. Cardiovascular: There is a regular rate and rhythm. No murmur, rub or gallop is appreciated. Respiratory: Diminished breath sound bilaterally no crackles rhonchi or wheezes Gastrointestinal: Soft, non-distended, non-tender abdomen without masses or organomegaly noted. There is no rebound or guarding present. Bowel sounds are unremarkable. Musculoskeletal: Normal ROM, no tenderness, There is no pedal edema. There is no calf tenderness or swelling. No cords were appreciated. Neurological: Mentation is slightly improving, less confusion noted today compared to the last few days. Psychiatric: Flat affect, confusion is improving, - Labs CBC & Chem 7: 01/07/24 03:49 01/07/24 03:44 Labs: Abnormal Lab Results - Last 24 Hours (Table) 01/07/24 01/07/24 01/07/24 Range/Units 03:44 03:49 08:54 RBC 3.71 L (4.30-5.90) m/uL Hgb 10.5 L (13.0-17.5) gm/dL Hct 31.0 L (39.0-53.0) % Plt Count 109 L (150-450) k/uL Lymphocytes # 0.4 L (1.0-4.8) k/uL Sodium 133 L (137-145) mmol/L Carbon Dioxide 19 L (22-30) mmol/L BUN 49 H (9-20) mg/dL Creatinine 4.60 H (0.66-1.25) mg/dL Glucose 105 H (74-99) mg/dL Calcium 6.9 L (8.4-10.2) mg/dL AST 1824 H (17-59) U/L ALT 585 H (4-49) U/L Creatine Kinase 79978 H* (55-170) U/L Microbiology - Last 24 Hours (Table) 01/04/24 22:15 CSF Gram Stain - Preliminary Cerebral Spinal Fluid CSF Culture - Preliminary 01/04/24 13:44 Blood Culture Gram Stain - Final Blood Blood Culture - Final Coagulase Negative Staph Coagulase Negative Staph#2 01/04/24 13:48 Blood Culture Gram Stain - Final Blood Blood Culture - Final Coagulase Negative Staph Coagulase Negative Staph#2 Assessment and Plan Assessment: Impression: Acute alcohol withdrawal Acute metabolic encephalopathy Bacteremia, however patient had coagulase-negative staph which is likely a contamination. Hypothermia on presentation. Resolved. Acute transaminitis. Improving. Acute RSV infection Acute rhabdomyolysis., CPK is improving. Acute kidney injury with oliguria, slight improvement in his urine output in the last 24 hours, patient nonetheless remains on hemodialysis. history of alcoholism History of hepatitis C History of GERD History of pancreatitis History of IV drug abuse History of bipolar disorder and depression Recommendation: Continue to monitor in the ICU Continue antibiotics empirically, patient is now on daptomycin and ceftriaxone Continue IV fluids patient has IV fluids running at 200 cc an hour. CPK is down to 89,000 Continue hemodialysis Continue to monitor daily labs including CPK, liver profile, renal profile. Continue GI and DVT prophylaxis Continue CIWA protocol Clinically the patient remains marginal at best, and will continue to monitor in the ICU Will continue to follow. Time with Patient: Less than 30
--- NOTE | 2024-01-07 13:07 | PN ---
PROGRESS NOTE HISTORY OF PRESENT ILLNESS: 38-year-old gentleman, who was admitted to hospital with acute rhabdomyolysis, acute renal failure, and adp-[id number] elevation OR. This morning, he seems more awake and alert and is asking for pain pills for musculoskeletal pain. PHYSICAL EXAMINATION: GENERAL: Comfortable at rest. VITAL SIGNS: Blood pressure is elevated. NECK: There is no jugular venous distention. CHEST: Reveals good air entry bilaterally. HEART: Reveals first and second heart sounds. No gallop. EXTREMITIES: Did not reveal any edema. Peripheral pulses are felt. ASSESSMENT: 1. Acute xyp-[id number]-[id number] elevation myocardial infarction. 2. Acute renal failure. 3. Rhabdomyolysis. PLAN: I will give him subcu heparin for DVT prophylaxis. Continue the nitroglycerin paste and add clonidine 0.1 mg patch for blood pressure control as he is not able to take any oral medications. MMODL / IJN: [id number] /
[2024-01-07] MEDS: NITROGLYCERIN OINT 1 INCH/GM PACKET TOPICAL SCH (16:45)
[2024-01-08 04:50] LABS: Basophils % (A) 0 %; Eosinophils % (A) 0 %; HCT 27.8 % (39.0-53.0); HGB 9.3 gm/dL (13.0-17.5); Lymphocytes # (A) 0.6 k/uL (1.0-4.8); Lymphocytes % (A) 6 %; MCH 28.3 pg (25.0-35.0); MCHC 33.3 g/dL (31.0-37.0); Mean Platelet Volume 11.8; Monocytes # (A) 0.6 k/uL (0-1.0); Monocytes % (A) 7 %; Neutrophils # (A) 7.4 k/uL (1.3-7.7); Neutrophils % (A) 84 %; Platelet Count 108 k/uL (150-450); RBC 3.27 m/uL (4.30-5.90); RDW 15.4 % (11.5-15.5); WBC 8.7 k/uL (3.8-10.6)
[2024-01-08 07:12] LABS: ALT 546 U/L (4-49); African American GFR (CKD) 12 (>60 ml/min/1.73 sqM); Albumin 2.3 g/dL (3.5-5.0); Alkaline Phosphatase 52 U/L (38-126); Anion Gap 12 mmol/L; Blood Urea Nitrogen 66 mg/dL (9-20); Calcium 6.6 mg/dL (8.4-10.2); Carbon Dioxide 14 mmol/L (22-30); Chloride 105 mmol/L (98-107); Glucose 83 mg/dL (74-99); Lipase 38 U/L (23-300); Non-African American GFR(CKD) 10 (>60 ml/min/1.73 sqM); Potassium 4.7 mmol/L (3.5-5.1); Sodium 131 mmol/L (137-145); Total Bilirubin 0.4 mg/dL (0.2-1.3); Total Protein 4.8 g/dL (6.3-8.2)
[2024-01-08 07:40] LABS: AST 1516 U/L (17-59)
[2024-01-08 09:00] LABS: Creatine Kinase 73807 U/L (55-170)
[2024-01-08] MEDS: NICOTINE 21MG/24HR PATCH TRANSDERM SCH (09:50)
[2024-01-08] MEDS: cloNIDine 0.2 MG/24HR PATCH TRANSDERM SCH (09:50)
[2024-01-08] MEDS: QUEtiapine 100 MG TAB PO SCH (09:50)
--- NOTE | 2024-01-08 11:11 | P.PN ---
Subjective Progress Note Date: 01/08/24 Principal diagnosis: Urosepsis, rhabdomyolysis, renal failure. Acute metabolic encephalopathy, and acute alcohol withdrawal This is a 38-year-old white male with history of multiple medical problems including alcoholism, hepatitis C, hypertension, GERD, patient was brought into the ER yesterday after he was noted to be face down in the snow, upon EMS arrival, the patient was hypothermic, and altered mental status. In the ER, the patient was noted to have temp of 102.6, he was tachycardic, and was not hypotensive or hypoxic. Workup in the ER included CBC which showed le ukocytosis. His bicarb was noted to be low, patient was noted to have anion gap metabolic acidosis, he was also noted to have renal failure with a BUN of 51 creatinine 3.45. His CPK was significantly elevated almost 92,000, troponin elevated at 1.6, and liver enzymes were also elevated including AST and ALT. There was evidence of blood in the urine. No drug screen was done at the time of arrival, but his alcohol level was less than 10. His RSV PCR was positive. Drug screen in the ICU was positive for barbiturates, amphetamine, methamphetamine, and benzodiazepines. Patient was seen by many consultants including infectious disease, patient was started empirically on antibiotics in the form of Rocephin and vancomycin, and infectious disease recommended a lumbar puncture on this patient. Initial chemistry on the spinal fluid seems to be unremarkable. Final report is pending. His blood cultures today are positive for gram-positive cocci in clusters. Patient was seen by nephrology today, and recommending starting the patient on hemodialysis. Patient was felt to have acute kidney injury secondary to ATN, and severe sepsis and rhabdomyolysis, oliguric, unresponsive to diuretics, and there was no hydronephrosis on the abdominal ultrasound. At any rate patient is scheduled to have a dialysis catheter placement today. Last night the patient was on the regular medical floor, I was made aware of this patient because his CIWA score was 20,, patient was already on a bicarb drip, and I have recommended transferring the patient out of the floor to the ICU saw this patient this morning, reviewed all his labs and workup, remains on bicarb drip, empirically on antibiotics for his presumptive severe sepsis and bacteremia as noted on blood cultures today, patient continues to have significantly elevated CPK, continues to have worsening renal failure. Blood pressure was high and I recommended Cleviprex at 2 mg/h. Also recommended a drug screen to be done. Patient did not require Precedex, he is agitation is well-controlled with Ativan. According to the patient his last alcohol drink was 2 days ago. Patient is not a great historian, seems to mumble but does not give adequate history. And he is by all means encephalopathic. But able to protect his airways, and able to cough and clear secretions. Hence did not feel the need to intubate this patient at this point. Procalcitonin level this morning is 45.9 Patient was reevaluated today on 01/06/2024, his blood cultures are actually now coagulase-negative staph, most likely blood cultures are contaminated. Patient is still restless and agitated easily, remains in the ICU, he will be undergoing dialysis today, he had dialysis yesterday. Complaining of hurting all over, patient remains a bit confused, and lethargic. His creatinine is high at 4.3, hemoglobin is down from 16.3 on admission now 10.3, platelets are coming down, hence I am stopping his heparin. CPK remains high at 158,000, patient is still receiving fluids at 200 cc/h, and he will have more dialysis today. Patient is extremely oliguric. Liver enzymes are also elevated with a AST of 2498, and ALT 573, improving compared to yesterday Patient was reevaluated today on 01/07/2024, remains in the ICU, marginal at best. On 3 L nasal cannula, remains a bit encephalopathic with a slight improvement in his overall mental status patient knows that he is at [facility], he realized the year is 2023. Patient continues to have marginal urine output, he is oliguric, intermittently on hemodialysis, patient remains on daptomycin and ceftriaxone, blood cultures were contaminated with staph/coagulase negative. Spinal fluid cultures have been negative CPK is coming down today, he is down to 89,000 from 159,000 yesterday. Renal functioning is about the same with a creatinine 4.60 and BUN of 49, Liver enzymes are steadily improving. And ammonia level is less than 90. His IV fluid remains at 200 cc/h patient is receiving MVI. Progress note dated January 08, 2024. 38-year-old male who was admitted to the hospital on 04 January. The patient came to the intensive care unit on the . Currently, the patient is seen today in room 255. The patient is on room air. He is getting saline at 130 cc an hour. He continues on dexmedetomidine at 0.4 mcg/kg/h. The patient has had hemodialysis, twice, but is planning to have hemodialysis again today. Will add some Haldol, Seroquel, and clonidine patch to his regimen, to get him off the dexmedetomidine. Current labs include white count 8.7, hemoglobin 9.3, hem atocrit 27.8, and platelet count 108,000. Sodium 131, potassium 4.7, chlorides 105, CO2 14, anion gap 12, BUN 66, creatinine 6.25. AST is 1516. ALT is 546. CK is down from 89,000, to 73,807. Blood cultures are positive for coag negative staph. No chest x-ray to report on. Objective - Vital Signs Vital signs: Vital Signs Temp 97.9 F 01/08/24 00:00 Pulse 53 L 01/08/24 07:00 Resp 12 01/08/24 07:00 BP 141/86 01/08/24 07:00 Pulse Ox 99 01/08/24 07:00 FiO2 Intake & Output 01/07/24 01/08/24 01/08/24 18:59 06:59 18:59 Intake Total 2907.436 1650.103 131.251 Output Total 175 90 20 Balance 2732.436 1560.103 111.251 Weight 100.7 kg Intake: IV 2750 1540 130 Invasive Line 1 20 Invasive Line 2 20 Invasive Line 3 30 30 Invasive Line 4 30 30 Mvi, Adult No.4 with Vit 1400 K 10 ml Thiamine 100 mg Folic Acid 1 mg In Sodium Chloride 0.9% 1,000 ml @ 200 mls/hr IV DAILY [facility] Rx#:[id number] Sodium Chloride 0.9% 1, 1430 130 000 ml @ 130 mls/hr IV . Q7H42M [facility] Rx#:[id number] Sodium Chloride 0.9% 1, 1200 000 ml @ 200 mls/hr IV . Q5H [facility] Rx#:[id number] cefTRIAXone 2 gm In 50 50 Sodium Chloride 0.9% 50 ml @ 100 mls/hr IVPB Q12HR [facility] Rx#:[id number] Intake, IV Titration 157.436 110.103 1.251 Amount DAPTOmycin 500 mg In 50 Sodium Chloride 0.9% 50 ml @ 100 mls/hr IVPB Q48H [facility] Rx#:[id number] Dexmedetomidine/0.9% NaCl 107.436 110.103 1.251 (Pmx) 400 mcg In Empty Bag 1 bag @ 0.2 MCG/KG/HR 4.082 mls/hr IV .Q24H [facility] Rx#:[id number] Output: Urine 175 90 20 Other: Voiding Method Indwelling Catheter Indwelling Catheter # Bowel Movements 1 - Exam No acute distress, sedated on dexmedetomidine. Currently on room air. HEENT examination is grossly unremarkable. Mucous membranes are moist. No oral lesions. Neck supple. Full range of motion. No adenopathy thyromegaly or neck vein distention. Cardiovascular examination reveals regular rhythm rate. S1-S2 normal. No S3 or S4. No discernible murmur noted. Heart rate 53 bpm. Lungs reveal mild scattered rhonchi. No wheezes or crackles. Breath sounds equal bilaterally. Saturations are 99% on room air. Abdomen soft bowel sounds are heard. No masses or tenderness. Extremities are intact. No cyanosis clubbing or edema. Skin is without rash or lesion. Neurologic examination is called to assess. - Labs CBC & Chem 7: 01/08/24 04:08 01/08/24 05:47 Labs: Abnormal Lab Results - Last 24 Hours (Table) 01/08/24 01/08/24 Range/Units 04:08 05:47 RBC 3.27 L (4.30-5.90) m/uL Hgb 9.3 L (13.0-17.5) gm/dL Hct 27.8 L (39.0-53.0) % Plt Count 108 L (150-450) k/uL Lymphocytes # 0.6 L (1.0-4.8) k/uL Sodium 131 L (137-145) mmol/L Carbon Dioxide 14 L (22-30) mmol/L BUN 66 H (9-20) mg/dL Creatinine 6.25 H (0.66-1.25) mg/dL Calcium 6.6 L (8.4-10.2) mg/dL AST 1516 H (17-59) U/L ALT 546 H (4-49) U/L Creatine Kinase 47056 H* (55-170) U/L Total Protein 4.8 L (6.3-8.2) g/dL Albumin 2.3 L (3.5-5.0) g/dL Microbiology - Last 24 Hours (Table) 01/04/24 22:15 CSF Gram Stain - Preliminary Cerebral Spinal Fluid CSF Culture - Preliminary Assessment and Plan Assessment: Acute alcohol withdrawal syndrome. Acute metabolic encephalopathy. Possible bacteremia secondary to coagulase-negative staphylococci. Hypothermia, resolved. Acute transaminitis. Acute RSV infection. Acute kidney injury secondary to rhabdomyolysis, currently on hemodialysis. History of alcoholism. History of hepatitis C. History of gastroesophageal reflux disease. History of IV drug abuse. History of pancreatitis. History of bipolar disorder and depression. Plan: Plan dated January 08, 2024. The patient is seen today in the intensive care unit, room 255. The patient is currently on Ativan, for his alcohol withdrawal syndrome. He continues on dexmedetomidine, 0.4 mcg/kg/h. We will attempt to wean that off, by adding Haldol, Seroquel, and a clonidine patch. The patient has been in the intensive care unit since January 05. Today's hemodialysis session will be his third. Labs, x-rays, and medications are reviewed. The patient's mental status, is di fficult to assess because of the dexmedetomidine. He continues on GI and DVT prophylaxis. He continues on Rocephin, and daptomycin, as per infectious diseases. He also continues on Decadron, for his swollen tongue. Additional recommendations and suggestions are forthcoming. Updrafts can be discontinued. Time with Patient: Greater than 30
--- NOTE | 2024-01-08 11:15 | P.PN ---
Subjective Progress Note Date: 01/07/24 Principal diagnosis: Reason for follow-up is fever and a positive blood culture Patient is a 38-year-old male with a past medical history of GERD for hypertension hepatitis C pancreatitis reflux history of alcoholism patient was brought into the ER by EMS after apparently the patient was noticed to be facedown in the snow when the EMS got him up he was unable to speak patient was hypothermic and subsequently brought into the ER for further evaluation, on arrival to the ER the patient did have a fever did have elevated white count chest x-ray UA was negative abdominal soft LP was done last night which came back negative as well. On today's evaluation that is 01/07/2024,the patient remains to be afebrile patient is slightly more awake and alert today and is breathing comfortably on 2 L nasal cannula oxygen, the patient denies chest pain shortness of breath and no significant cough, patient denies abdominal pain, no nausea vomiting or diarrhea. Patient did have a white count of 7.3, creatinine 4.60 CK is still elevated Objective - Vital Signs Vital signs: Vital Signs Temp 97.7 F 01/07/24 08:00 Pulse 53 L 01/07/24 09:00 Resp 12 01/07/24 09:00 BP 167/103 01/07/24 09:00 Pulse Ox 99 01/07/24 09:00 FiO2 Intake & Output 01/06/24 01/07/24 01/07/24 18:59 06:59 18:59 Intake Total 3268.424 2870 715.038 Output Total 515 15 105 Balance 2753.424 2855 610.038 Intake: IV 2380 2770 690 0.9 NS 10 Invasive Line 1 30 30 10 Invasive Line 2 30 30 10 Invasive Line 3 30 30 10 Invasive Line 4 30 30 10 Mvi, Adult No.4 with Vit 800 200 400 K 10 ml Thiamine 100 mg Folic Acid 1 mg In Sodium Chloride 0.9% 1,000 ml @ 200 mls/hr IV DAILY [facility] Rx#:[id number] Potassium Chloride 20 meq 200 In Water For Injection 1 100ml.bag @ 50 mls/hr IVPB Q2H [facility] Rx#: [id number] Sodium Chloride 0.9% 1, 1400 2200 200 000 ml @ 200 mls/hr IV . Q5H [facility] Rx#:[id number] cefTRIAXone 2 gm In 50 50 50 Sodium Chloride 0.9% 50 ml @ 100 mls/hr IVPB Q12HR [facility] Rx#:[id number] Intake, IV Titration 388.424 100 25.038 Amount Dexmedetomidine/0.9% NaCl 163.179 100 25.038 (Pmx) 400 mcg In Empty Bag 1 bag @ 0.2 MCG/KG/HR 4.082 mls/hr IV .Q24H [facility] Rx#:[id number] Heparin Sod,Pork in 0.45% 25.245 NaCl 25,000 unit In 0.45 % NaCl 1 250ml.bag @ 12 UNITS/KG/HR 9.798 mls/hr IV .Q24H [facility] Rx#: [id number] Sodium Chloride 0.9% 1, 200 000 ml @ 200 mls/hr IV . Q5H [facility] Rx#:[id number] Oral 0 Hemodialysis 500 Output: Urine 15 15 105 Hemodialysis 500 Other: Voiding Method Indwelling Catheter Indwelling Catheter Indwelling Catheter # Bowel Movements 0 1 - Exam GENERAL DESCRIPTION: Middle-age male lying in bed in no distress RESPIRATORY SYSTEM: Unlabored breathing , decreased breath sounds at bases HEART: S1 S2 regular rate and rhythm , ABDOMEN: Soft , no tenderness EXTREMITIES: No edema feet - Labs CBC & Chem 7: 01/08/24 04:08 01/08/24 05:47 Labs: Abnormal Lab Results - Last 24 Hours (Table) 01/06/24 01/06/24 01/07/24 Range/Units 08:16 08:16 03:44 RBC (4.30-5.90) m/uL Hgb (13.0-17.5) gm/dL Hct (39.0-53.0) % Plt Count (150-450) k/uL Lymphocytes # (1.0-4.8) k/uL Sodium 133 L (137-145) mmol/L Carbon Dioxide 19 L (22-30) mmol/L BUN 49 H (9-20) mg/dL Creatinine 4.60 H (0.66-1.25) mg/dL Glucose 105 H (74-99) mg/dL Calcium 6.9 L (8.4-10.2) mg/dL AST 2498 H (17-59) U/L ALT 573 H (4-49) U/L Creatine Kinase 090285 H* (55-170) U/L 01/07/24 01/07/24 Range/Units 03:49 08:54 RBC 3.71 L (4.30-5.90) m/uL Hgb 10.5 L (13.0-17.5) gm/dL Hct 31.0 L (39.0-53.0) % Plt Count 109 L (150-450) k/uL Lymphocytes # 0.4 L (1.0-4.8) k/uL Sodium (137-145) mmol/L Carbon Dioxide (22-30) mmol/L BUN (9-20) mg/dL Creatinine (0.66-1.25) mg/dL Glucose (74-99) mg/dL Calcium (8.4-10.2) mg/dL AST 1824 H (17-59) U/L ALT 585 H (4-49) U/L Creatine Kinase (55-170) U/L Microbiology - Last 24 Hours (Table) 01/04/24 22:15 CSF Gram Stain - Preliminary Cerebral Spinal Fluid CSF Culture - Preliminary 01/04/24 13:44 Blood Culture Gram Stain - Final Blood Blood Culture - Final Coagulase Negative Staph Coagulase Negative Staph#2 01/04/24 13:48 Blood Culture Gram Stain - Final Blood Blood Culture - Final Coagulase Negative Staph Coagulase Negative Staph#2 Assessment and Plan (1) Fever with leukocytosis and leukocyte count greater than or equal to 20,000 Current Visit: Yes Status: Acute Code(s): D72.829 - ELEVATED WHITE BLOOD CELL COUNT, UNSPECIFIED SNOMED Code(s): 782606547 (2) Positive blood culture Current Visit: No Status: Acute Code(s): R78.81 - BACTEREMIA SNOMED C ode(s): 291773954 Plan: 1patient presented hospital with episode of unresponsiveness by the EMS patient did have features of sepsis running a fever did have elevated white count, initial workup including a chest x-ray and UA has been negative the patient a bdominal was soft on clinical examination and there was no evidence of any cellulitis with a question of possible POLITICAL SCIENCE CHAIR infection however the patient did have LP completed last night by ER physician and is negative 2-patient with a positive blood culture with coagulase-negative staph with concern for possible vs contamination possible pathogen monitor slowly as the patient did have a fever on admission to the hospital and some cellulitis of the left lower extremity 3-patient to continue with the daptomycin and monitor clinical course closely Dictation was produced using [employer] dictation software. please excuse any grammatical, word or spelling errors. Time with Patient: Less than 30
--- NOTE | 2024-01-08 11:17 | P.PN ---
Subjective Progress Note Date: 01/08/24 Principal diagnosis: Reason for follow-up is fever and a positive blood culture Patient is a 38-year-old male with a past medical history of GERD for hypertension hepatitis C pancreatitis reflux history of alcoholism patient was brought into the ER by EMS after apparently the patient was noticed to be facedown in the snow when the EMS got him up he was unable to speak patient was hypothermic and subsequently brought into the ER for further evaluation, on arrival to the ER the patient did have a fever did have elevated white count chest x-ray UA was negative abdominal soft LP was done last night which came back negative as well. 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 vomiting reported by the nursing staff Patient white count is 8.7, creatinine 6[place] [address] Objective - Vital Signs Vital signs: Vital Signs Temp 99.2 F 01/08/24 08:00 Pulse 52 L 01/08/24 11:00 Resp 16 01/08/24 11:00 BP 139/106 01/08/24 11:00 Pulse Ox 97 01/08/24 11:00 FiO2 Intake & Output 01/07/24 01/08/24 01/08/24 18:59 06:59 18:59 Intake Total 2907.436 1650.103 701.251 Output Total 175 90 65 Balance 2732.436 1560.103 636.251 Weight 100.7 kg Intake: IV 2750 1540 700 Invasive Line 1 20 Invasive Line 2 20 Invasive Line 3 30 30 Invasive Line 4 30 30 Mvi, Adult No.4 with Vit 1400 K 10 ml Thiamine 100 mg Folic Acid 1 mg In Sodium Chloride 0.9% 1,000 ml @ 75 mls/hr IV DAILY [facility] Rx#:[id number] Sodium Chloride 0.9% 1, 1430 650 000 ml @ 130 mls/hr IV . Q7H42M [facility] Rx#:[id number] Sodium Chloride 0.9% 1, 1200 000 ml @ 200 mls/hr IV . Q5H [facility] Rx#:[id number] cefTRIAXone 2 gm In 50 50 50 Sodium Chloride 0.9% 50 ml @ 100 mls/hr IVPB Q12HR [facility] Rx#:[id number] Intake, IV Titration 157.436 110.103 1.251 Amount DAPTOmycin 500 mg In 50 Sodium Chloride 0.9% 50 ml @ 100 mls/hr IVPB Q48H [facility] Rx#:[id number] Dexmedetomidine/0.9% NaCl 107.436 110.103 1.251 (Pmx) 400 mcg In Empty Bag 1 bag @ 0.2 MCG/KG/HR 4.082 mls/hr IV .Q24H [facility] Rx#:[id number] Output: Urine 175 90 65 Other: Voiding Method Indwelling Catheter Indwelling Catheter # Bowel Movements 1 - Exam GENERAL DESCRIPTION: Middle-age male lying in bed in no distress RESPIRATORY SYSTEM: Unlabored breathing , decreased breath sounds at bases HEART: S1 S2 regular rate and rhythm , ABDOMEN: Soft , no tenderness EXTREMITIES: No edema feet - Labs CBC & Chem 7: 01/08/24 04:08 01/08/24 05:47 Labs: Abnormal Lab Results - Last 24 Hours (Table) 01/08/24 01/08/24 Range/Units 04:08 05:47 RBC 3.27 L (4.30-5.90) m/uL Hgb 9.3 L (13.0-17.5) gm/dL Hct 27.8 L (39.0-53.0) % Plt Count 108 L (150-450) k/uL Lymphocytes # 0.6 L (1.0-4.8) k/uL Sodium 131 L (137-145) mmol/L Carbon Dioxide 14 L (22-30) mmol/L BUN 66 H (9-20) mg/dL Creatinine 6.25 H (0.66-1.25) mg/dL Calcium 6.6 L (8.4-10.2) mg/dL AST 1516 H (17-59) U/L ALT 546 H (4-49) U/L Creatine Kinase 32121 H* (55-170) U/L Total Protein 4.8 L (6.3-8.2) g/dL Albumin 2.3 L (3.5-5.0) g/dL Microbiology - Last 24 Hours (Table) 01/04/24 22:15 CSF Gram Stain - Preliminary Cerebral Spinal Fluid CSF Culture - Preliminary Assessment and Plan (1) Fever with leukocytosis and leukocyte count greater than or equal to 20,000 Current Visit: Yes Status: Acute Code(s): D72.829 - ELEVATED WHITE BLOOD CELL COUNT, UNSPECIFIED SNOMED Code(s): 365038870 (2) Positive blood culture Current Visit: No Status: Acute Code(s): R78.81 - BACTEREMIA SNOMED Code(s): 984662609 Plan: 1patient presented hospital with episode of unresponsiveness by the EMS patient did have features of sepsis running a fever did have elevated white count, initial workup including a chest x-ray and UA has been negative the patient abdominal was soft on clinical examination and there was no evidence of any cellulitis with a question of possible TECHNICAL MARKETING CONSULTANT infection however the patient did have LP completed last night by ER physician and is negative 2-patient with a positive blood culture with coagulase-negative staph with concern for possible vs contamination possible pathogen monitor slowly as the patient did have a fever on admission to the hospital and some cellulitis of the left lower extremity 3-patient repeat blood cultures has been ordered if negative will discontinue d aptomycin, switch Rocephin to 2 g daily Dictation was produced using [employer] dictation software. please excuse any grammatical, word or spelling errors. Time with Patient: Less than 30
[2024-01-08] MEDS: ASPIRIN 81 MG PO SCH (11:27)
--- NOTE | 2024-01-08 12:01 | P.PN ---
Subjective Patient is seen for follow-up for acute kidney injury. He was started on hemodialysis on 01/05/2024 for oliguric ATN and severe rhabdo my lysis. Currently seen on hemodialysis. Tolerating treatment well. Patient is been confused. UF of about 2 L today. Blood pressure was on the higher side and patient is started on a clonidine patch. Receiving normal saline at 1 30 mL an hour. Urine output at 5-10 mL an hour. Objective - Vital Signs Vital signs: Vital Signs Temp 99.2 F 01/08/24 08:00 Pulse 52 L 01/08/24 11:00 Resp 16 01/08/24 11:00 BP 139/106 01/08/24 11:00 Pulse Ox 97 01/08/24 11:00 FiO2 Intake & Output 01/07/24 01/08/24 01/08/24 18:59 06:59 18:59 Intake Total 2907.436 1650.103 804.803 Output Total 175 90 65 Balance 2732.436 1560.103 739.803 Weight 100.7 kg Intake: IV 2750 1540 720 Invasive Line 1 20 Invasive Line 2 20 Invasive Line 3 30 30 20 Invasive Line 4 30 30 Mvi, Adult No.4 with Vit 1400 K 10 ml Thiamine 100 mg Folic Acid 1 mg In Sodium Chloride 0.9% 1,000 ml @ 75 mls/hr IV DAILY [facility] Rx#:[id number] Sodium Chloride 0.9% 1, 1430 650 000 ml @ 130 mls/hr IV . Q7H42M [facility] Rx#:[id number] Sodium Chloride 0.9% 1, 1200 000 ml @ 200 mls/hr IV . Q5H [facility] Rx#:[id number] cefTRIAXone 2 gm In 50 50 50 Sodium Chloride 0.9% 50 ml @ 100 mls/hr IVPB Q12HR [facility] Rx#:[id number] Intake, IV Titration 157.436 110.103 34.803 Amount DAPTOmycin 500 mg In 50 Sodium Chloride 0.9% 50 ml @ 100 mls/hr IVPB Q48H [facility] Rx#:[id number] Dexmedetomidine/0.9% NaCl 107.436 110.103 34.803 (Pmx) 400 mcg In Empty Bag 1 bag @ 0.2 MCG/KG/HR 4.082 mls/hr IV .Q24H [facility] Rx#:[id number] Oral 50 Output: Urine 175 90 65 Other: Voiding Method Indwelling Catheter Indwelling Catheter Indwelling Catheter # Bowel Movements 1 - Exam Patient is sleeping but arousable Examination of the heart S1 and S2 Examination of the lungs bilateral breath sounds are heard Abdomen is soft nontender Examination of lower extremity shows no significant edema Patient is moving all 4 extremities. He is confused. - Labs CBC & Chem 7: 01/08/24 04:08 01/08/24 05:47 Labs: Abnormal Lab Results - Last 24 Hours (Table) 01/08/24 01/08/24 Range/Units 04:08 05:47 RBC 3.27 L (4.30-5.90) m/uL Hgb 9.3 L (13.0-17.5) gm/dL Hct 27.8 L (39.0-53.0) % Plt Count 108 L (150-450) k/uL Lymphocytes # 0.6 L (1.0-4.8) k/uL Sodium 131 L (137-145) mmol/L Carbon Dioxide 14 L (22-30) mmol/L BUN 66 H (9-20) mg/dL Creatinine 6.25 H (0.66-1.25) mg/dL Calcium 6.6 L (8.4-10.2) mg/dL AST 1516 H (17-59) U/L ALT 546 H (4-49) U/L Creatine Kinase 81072 H* (55-170) U/L Total Protein 4.8 L (6.3-8.2) g/dL Albumin 2.3 L (3.5-5.0) g/dL Microbiology - Last 24 Hours (Table) 01/04/24 22:15 CSF Gram Stain - Preliminary Cerebral Spinal Fluid CSF Culture - Preliminary Assessment and Plan Assessment: 1. Acute kidney injury secondary to ATN secondary to severe sepsis and rhabdomyolysis. Baseline creatinine 0.5-0.6 and up to 4.02 01/05 started HD. Oliguric. Diuretic unresponsive. No hydronephrosis noted on abdominal ultrasound. 2. Rhabdomyolysis secondary to fall/immobility. CK level greater than 160,000, decreased [id number] today 3. Severe sepsis secondary to gram-positive bacteremia. On IV antibiotics. 4. Metabolic acidosis secondary to acute kidney injury. 5. Initially hypernatremia, now mildly hyponatremic at 133. 6. Hypocalcemia secondary to acute kidney injury and rhabdomyolysis. Improved. Avoid aggressive calcium replacement to avoid calcium phosphate precipitation in tissues. 7. Non-gap metabolic acidosis secondary to severe acute kidney injury and rhabdomyolysis Plan: Repeat hemodialysis in a.m. Check labs 4 hours post dialysis and possible initiation of bicarb drip if patient remains acidotic.
--- NOTE | 2024-01-08 12:15 | P.PN ---
Subjective Progress Note Date: 01/08/24 patient is a 38-year-old gentleman past medical significant for alcohol abuse, liver disease who presented to the ER for altered mental status. Patient has a history of alcohol abuse and has multiple admissions to this hospital for alcohol detox. Patient was brought in the ED by EMS after being found lying facedown in snow. There was no obvious sign of any trauma. Patient was unable to respond to any questions. EMS brought him immediately to the ER Initial lab work done in the ER showed WBC 22, hemoglobin 16.4, platelet count 274, sodium 152, potassium 5.1, BUN 38, creatinine 3.47, glucose 105, bilirubin 0.7, AST 1723, ALT 399, troponin 2.39 EKG done in the ER showed heart rate of 125, no ST segment elevation or depression seen, no T-wave inversions seen. Chest x-ray done in the ER showed no acute cardiopulmonary process CT head done showed no acute intracranial process CT cervical spine negative for any acute fracture or dislocation Patient admitted to internal medicine service. On my interview with patient, patient was much more responsive, kept on asking about getting soda and water. Stated that he has been laying on the ground for more than 15 hours. Patient is currently running a fever. Denies any chest pain or shortness of breath. Complaining of generalized body aches 01/05. Patient seen and examined. Blood work done this morning showed WBC 10.5, hemoglobin 9.8, platelet count 137, sodium 132, potassium 3.8, BUN 60, creatinine 4.02, calcium 6, CK greater than 048823. 2D echo done showed LVEF of 50 to 55%, no mitral regurg, trace tricuspid regurg 01/06. Patient seen and examined. Currently in restraints. Currently getting dialysis. Complaining of pain in his tongue, apparently bit his tongue during the fall. 01/07. Patient seen and examined. Continues to be in ICU. Currently on Precedex and IV fluids. Patient currently off restraints, is alert to self. 01/08. Patient seen and examined.Blood work done this morning showed WBC 8.7, hemoglobin 9.3, sodium 137, potassium 4.7, BUN 66, creatinine 6.25, AST is 1516, ALT is 546, currently on 2 L of oxygen. Patient is alert, answering questions, currently on Precedex drip. REVIEW OF SYSTEMS: Denies any chest pain. Denies any shortness of breath No complaint of nausea, vomiting or abdominal pain PHYSICAL EXAMINATION: GENERAL: The patient is alert to self, not in any acute distress. Ill looking HEENT: Pupils are round and equally reacting to light. EOMI. No scleral icterus. No conjunctival pallor. Normocephalic, atraumatic. No pharyngeal erythema. No thyromegaly. Tongue swollen secondary to the bite CARDIOVASCULAR: S1 and S2 present. No murmurs, rubs, or gallops. Tachycardic PULMONARY: Coarse breath sound bilaterally, no wheezing or crackles. ABDOMEN: Soft, nontender, nondistended, normoactive bowel sounds. No palpable organomegaly. MUSCULOSKELETAL: No joint swelling or deformity. EXTREMITIES: No cyanosis, clubbing, or pedal edema. NEUROLOGICAL: Gross neurological examination did not reveal any focal deficits. SKIN: No rashes. Assessment and plan Acute metabolic encephalopathy Acute kidney injury Bacteremia Sepsis Rhabdomyolysis secondary to fall Hypothermia Hypernatremia Leukocytosis NSTEMI Acute transaminitis Fall History of alcohol abuse History of depression Monitor vital signs Monitor CBC Monitor CMP Continue telemetry monitoring Trend troponin. Follow-up on blood cultures 2D echo done showed LVEF of 50 to 55%, no mitral regurg, trace tricuspid regurg Avoid nephrotoxic agent Avoid hepatotoxic agents Strict I's and O's, daily weights Continue IV fluids Continue IV Rocephin and daptomycin Continue CIWA protocol continue high-dose thiamine and folic acid Continue dialysis per nephrology, getting his third round of dialysis today ID following Cardiology following Critical care following Labs and medication were reviewed.. Continue same treatment. Continue with symptomatic treatment. Resume home medication. Monitor labs and vitals. DVT and GI prophylaxis. Further recommendations as per clinical course of the patient Dictation was produced using [employer] dictation software. please excuse any grammatical, word or spelling errors. Objective - Vital Signs Vital signs: Vital Signs Temp 97.9 F 01/08/24 00:00 Pulse 53 L 01/08/24 07:00 Resp 12 01/08/24 07:00 BP 141/86 01/08/24 07:00 Pulse Ox 99 01/08/24 07:00 FiO2 Intake & Output 01/07/24 01/08/24 01/08/24 18:59 06:59 18:59 Intake Total 2907.436 1650.103 131.251 Output Total 175 90 20 Balance 2732.436 1560.103 111.251 Weight 100.7 kg Intake: IV 2750 1540 130 Invasive Line 1 20 Invasive Line 2 20 Invasive Line 3 30 30 Invasive Line 4 30 30 Mvi, Adult No.4 with Vit 1400 K 10 ml Thiamine 100 mg Folic Acid 1 mg In Sodium Chloride 0.9% 1,000 ml @ 200 mls/hr IV DAILY [facility] Rx#:[id number] Sodium Chloride 0.9% 1, 1430 130 000 ml @ 130 mls/hr IV . Q7H42M [facility] Rx#:[id number] Sodium Chloride 0.9% 1, 1200 000 ml @ 200 mls/hr IV . Q5H [facility] Rx#:[id number] cefTRIAXone 2 gm In 50 50 Sodium Chloride 0.9% 50 ml @ 100 mls/hr IVPB Q12HR [facility] Rx#:[id number] Intake, IV Titration 157.436 110.103 1.251 Amount DAPTOmycin 500 mg In 50 Sodium Chloride 0.9% 50 ml @ 100 mls/hr IVPB Q48H [facility] Rx#:[id number] Dexmedetomidine/0.9% NaCl 107.436 110.103 1.251 (Pmx) 400 mcg In Empty Bag 1 bag @ 0.2 MCG/KG/HR 4.082 mls/hr IV .Q24H [facility] Rx#:[id number] Output: Urine 175 90 20 Other: Voiding Method Indwelling Catheter Indwelling Catheter # Bowel Movements 1 - Labs CBC & Chem 7: 01/08/24 04:08 01/08/24 05:47 Labs: Abnormal Lab Results - Last 24 Hours (Table) 01/07/24 01/08/24 01/08/24 Range/Units 08:54 04:08 05:47 RBC 3.27 L (4.30-5.90) m/uL Hgb 9.3 L (13.0-17.5) gm/dL Hct 27.8 L (39.0-53.0) % Plt Count 108 L (150-450) k/uL Lymphocytes # 0.6 L (1.0-4.8) k/uL Sodium 131 L (137-145) mmol/L Carbon Dioxide 14 L (22-30) mmol/L BUN 66 H (9-20) mg/dL Creatinine 6.25 H (0.66-1.25) mg/dL Calcium 6.6 L (8.4-10.2) mg/dL AST 1824 H 1516 H (17-59) U/L ALT 585 H 546 H (4-49) U/L Creatine Kinase 09224 H* 09789 H* (55-170) U/L Total Protein 4.8 L (6.3-8.2) g/dL Albumin 2.3 L (3.5-5.0) g/dL Microbiology - Last 24 Hours (Table) 01/04/24 22:15 CSF Gram Stain - Preliminary Cerebral Spinal Fluid CSF Culture - Preliminary
[2024-01-08 17:40] LABS: African American GFR (CKD) 17 (>60 ml/min/1.73 sqM); Anion Gap 10 mmol/L; Blood Urea Nitrogen 53 mg/dL (9-20); Carbon Dioxide 15 mmol/L (22-30); Chloride 105 mmol/L (98-107); Glucose 112 mg/dL (74-99); Non-African American GFR(CKD) 14 (>60 ml/min/1.73 sqM); Sodium 130 mmol/L (137-145)
[2024-01-08 17:41] LABS: Potassium 4.3 mmol/L (3.5-5.1)
[2024-01-08] MEDS: HALOPERIDOL LACTATE 5 MG/ML 1 ML VIAL IVP PRN (18:24)
--- NOTE | 2024-01-08 18:40 | P.PN ---
Subjective Patient is resting in bed He was admitted with acute rhabdomyolysis and acute renal failure with abnormal troponins Apparently he took a fall after heavy alcohol consumption He drinks regularly His CPKs were greater than 16,000 while the troponin peaked at 2.4 On examination blood pressure 126/78 mmHg pulse rate in the 60s Heart sounds S1-S2 are soft Impression rhabdomyolysis Acute renal failure Borderline troponins but the ratio of the CPK to troponin suggest skeletal muscle injury pattern Preserved LV size and systolic function Suggest Continue supportive care for now Continue aspirin and hydration Objective - Vital Signs Vital signs: Vital Signs Temp 97.7 F 01/08/24 12:00 Pulse 110 H 01/08/24 18:00 Resp 23 01/08/24 18:00 BP 118/90 01/08/24 18:00 Pulse Ox 97 01/08/24 18:00 FiO2 Intake & Output 01/07/24 01/08/24 01/08/24 18:59 06:59 18:59 Intake Total 2907.436 5554.090 2129.724 Output Total 367 85 6722 Balance 2732.436 1560.103 -439.276 Weight 100.7 kg Intake: IV 2750 1540 1255 Invasive Line 1 20 Invasive Line 2 20 Invasive Line 3 30 30 30 Invasive Line 4 30 30 Mvi, Adult No.4 with Vit 1400 525 K 10 ml Thiamine 100 mg Folic Acid 1 mg In Sodium Chloride 0.9% 1,000 ml @ 75 mls/hr IV DAILY [facility] Rx#:[id number] Sodium Chloride 0.9% 1, 1430 650 000 ml @ 130 mls/hr IV . Q7H42M [facility] Rx#:[id number] Sodium Chloride 0.9% 1, 1200 000 ml @ 200 mls/hr IV . Q5H [facility] Rx#:[id number] cefTRIAXone 2 gm In 50 50 50 Sodium Chloride 0.9% 50 ml @ 100 mls/hr IVPB Q12HR [facility] Rx#:[id number] Intake, IV Titration 157.436 110.103 60.724 Amount DAPTOmycin 500 mg In 50 Sodium Chloride 0.9% 50 ml @ 100 mls/hr IVPB Q48H [facility] Rx#:[id number] Dexmedetomidine/0.9% NaCl 107.436 110.103 60.724 (Pmx) 400 mcg In Empty Bag 1 bag @ 0.2 MCG/KG/HR 4.082 mls/hr IV .Q24H [facility] Rx#:[id number] Oral 380 Hemodialysis 500 Output: Urine 175 90 135 Hemodialysis 2500 Other: Voiding Method Indwelling Catheter Indwelling Catheter Indwelling Catheter # Bowel Movements 1 - Labs CBC & Chem 7: 01/08/24 04:08 01/08/24 17:14 Labs: Abnormal Lab Results - Last 24 Hours (Table) 01/08/24 01/08/24 01/08/24 Range/Units 04:08 05:47 17:14 RBC 3.27 L (4.30-5.90) m/uL Hgb 9.3 L (13.0-17.5) gm/dL Hct 27.8 L (39.0-53.0) % Plt Count 108 L (150-450) k/uL Lymphocytes # 0.6 L (1.0-4.8) k/uL Sodium 131 L 130 L (137-145) mmol/L Carbon Dioxide 14 L 15 L (22-30) mmol/L BUN 66 H 53 H (9-20) mg/dL Creatinine 6.25 H 4.78 H (0.66-1.25) mg/dL Glucose 112 H (74-99) mg/dL Calcium 6.6 L 7.0 L (8.4-10.2) mg/dL AST 1516 H (17-59) U/L ALT 546 H (4-49) U/L Creatine Kinase 46699 H* (55-170) U/L Total Protein 4.8 L (6.3-8.2) g/dL Albumin 2.3 L (3.5-5.0) g/dL Microbiology - Last 24 Hours (Table) 01/04/24 22:15 CSF Gram Stain - Preliminary Cerebral Spinal Fluid CSF Culture - Preliminary
[2024-01-09] MEDS: SODIUM CHLORIDE 0.9% 1,000 ML IV SCH ×2 (02:00→14:00)
[2024-01-09 06:42] LABS: African American GFR (CKD) 14 (>60 ml/min/1.73 sqM); Anion Gap 5 mmol/L; Blood Urea Nitrogen 59 mg/dL (9-20); Carbon Dioxide 22 mmol/L (22-30); Chloride 103 mmol/L (98-107); Glucose 100 mg/dL (74-99); Non-African American GFR(CKD) 12 (>60 ml/min/1.73 sqM); Potassium 3.6 mmol/L (3.5-5.1); Sodium 130 mmol/L (137-145)
[2024-01-09 07:15] LABS: Basophils % (A) 0 %; Eosinophils % (A) 0 %; HCT 22.8 % (39.0-53.0); Lymphocytes # (A) 0.8 k/uL (1.0-4.8); Lymphocytes % (A) 10 %; MCH 28.3 pg (25.0-35.0); MCHC 34.2 g/dL (31.0-37.0); MCV 82.8 fL (80.0-100.0); Mean Platelet Volume 10.5; Monocytes # (A) 0.6 k/uL (0-1.0); Monocytes % (A) 9 %; Neutrophils # (A) 5.8 k/uL (1.3-7.7); Neutrophils % (A) 78 %; Platelet Count 124 k/uL (150-450); RBC 2.75 m/uL (4.30-5.90); RDW 15.8 % (11.5-15.5); WBC 7.4 k/uL (3.8-10.6)
[2024-01-09 07:17] LABS: HGB 7.8 gm/dL (13.0-17.5)
[2024-01-09] MEDS: FOLIC ACID 1 MG TAB PO SCH (07:48)
[2024-01-09] MEDS: THIAMINE 100 MG TAB PO SCH (07:48)
[2024-01-09] MEDS: MULTIVITAMINS, THERA 1 EACH TAB PO SCH (07:48)
--- NOTE | 2024-01-09 10:06 | P.PN ---
Subjective Progress Note Date: 01/09/24 Principal diagnosis: Urosepsis, rhabdomyolysis, renal failure. Acute metabolic encephalopathy, and acute alcohol withdrawal This is a 38-year-old white male with history of multiple medical problems including alcoholism, hepatitis C, hypertension, GERD, patient was brought into the ER yesterday after he was noted to be face down in the snow, upon EMS arrival, the patient was hypothermic, and altered mental status. In the ER, the patient was noted to have temp of 102.6, he was tachycardic, and was not hypotensive or hypoxic. Workup in the ER included CBC which showed le ukocytosis. His bicarb was noted to be low, patient was noted to have anion gap metabolic acidosis, he was also noted to have renal failure with a BUN of 51 creatinine 3.45. His CPK was significantly elevated almost 92,000, troponin elevated at 1.6, and liver enzymes were also elevated including AST and ALT. There was evidence of blood in the urine. No drug screen was done at the time of arrival, but his alcohol level was less than 10. His RSV PCR was positive. Drug screen in the ICU was positive for barbiturates, amphetamine, methamphetamine, and benzodiazepines. Patient was seen by many consultants including infectious disease, patient was started empirically on antibiotics in the form of Rocephin and vancomycin, and infectious disease recommended a lumbar puncture on this patient. Initial chemistry on the spinal fluid seems to be unremarkable. Final report is pending. His blood cultures today are positive for gram-positive cocci in clusters. Patient was seen by nephrology today, and recommending starting the patient on hemodialysis. Patient was felt to have acute kidney injury secondary to ATN, and severe sepsis and rhabdomyolysis, oliguric, unresponsive to diuretics, and there was no hydronephrosis on the abdominal ultrasound. At any rate patient is scheduled to have a dialysis catheter placement today. Last night the patient was on the regular medical floor, I was made aware of this patient because his CIWA score was 20,, patient was already on a bicarb drip, and I have recommended transferring the patient out of the floor to the ICU saw this patient this morning, reviewed all his labs and workup, remains on bicarb drip, empirically on antibiotics for his presumptive severe sepsis and bacteremia as noted on blood cultures today, patient continues to have significantly elevated CPK, continues to have worsening renal failure. Blood pressure was high and I recommended Cleviprex at 2 mg/h. Also recommended a drug screen to be done. Patient did not require Precedex, he is agitation is well-controlled with Ativan. According to the patient his last alcohol drink was 2 days ago. Patient is not a great historian, seems to mumble but does not give adequate history. And he is by all means encephalopathic. But able to protect his airways, and able to cough and clear secretions. Hence did not feel the need to intubate this patient at this point. Procalcitonin level this morning is 45.9 Patient was reevaluated today on 01/06/2024, his blood cultures are actually now coagulase-negative staph, most likely blood cultures are contaminated. Patient is still restless and agitated easily, remains in the ICU, he will be undergoing dialysis today, he had dialysis yesterday. Complaining of hurting all over, patient remains a bit confused, and lethargic. His creatinine is high at 4.3, hemoglobin is down from 16.3 on admission now 10.3, platelets are coming down, hence I am stopping his heparin. CPK remains high at 158,000, patient is still receiving fluids at 200 cc/h, and he will have more dialysis today. Patient is extremely oliguric. Liver enzymes are also elevated with a AST of 2498, and ALT 573, improving compared to yesterday Patient was reevaluated today on 01/07/2024, remains in the ICU, marginal at best. On 3 L nasal cannula, remains a bit encephalopathic with a slight improvement in his overall mental status patient knows that he is at [facility], he realized the year is 2023. Patient continues to have marginal urine output, he is oliguric, intermittently on hemodialysis, patient remains on daptomycin and ceftriaxone, blood cultures were contaminated with staph/coagulase negative. Spinal fluid cultures have been negative CPK is coming down today, he is down to 89,000 from 159,000 yesterday. Renal functioning is about the same with a creatinine 4.60 and BUN of 49, Liver enzymes are steadily improving. And ammonia level is less than 90. His IV fluid remains at 200 cc/h patient is receiving MVI. Progress note dated January 08, 2024. 38-year-old male who was admitted to the hospital on 04 January. The patient came to the intensive care unit on the . Currently, the patient is seen today in room 255. The patient is on room air. He is getting saline at 130 cc an hour. He continues on dexmedetomidine at 0.4 mcg/kg/h. The patient has had hemodialysis, twice, but is planning to have hemodialysis again today. Will add some Haldol, Seroquel, and clonidine patch to his regimen, to get him off the dexmedetomidine. Current labs include white count 8.7, hemoglobin 9.3, hem atocrit 27.8, and platelet count 108,000. Sodium 131, potassium 4.7, chlorides 105, CO2 14, anion gap 12, BUN 66, creatinine 6.25. AST is 1516. ALT is 546. CK is down from 89,000, to 73,807. Blood cultures are positive for coag negative staph. No chest x-ray to report on. Progress note dated January 09, 2024. 38-year-old male who was admitted to the hospital on January 04. The patient c meredith to the intensive care unit, on the . Currently, the patient is seen today in room 255. The patient continues on room air. The patient is getting saline at 75 cc an hour. He will have another hemodialysis session today, which is #4. Yesterday, he had hemodialysis, and 2 L was removed. He is currently off the dexmedetomidine. White count 7.4, hemoglobin 7.8, hematocrit 22.8, platelet count 124,000. Sodium 130, potassium 3.6, chlorides 103, CO2 22, BUN 59, creatinine 5.67. His calcium is 7.0. Blood cultures were positive for coag negative staph. Objective - Vital Signs Vital signs: Vital Signs Temp 97.7 F 01/09/24 08:00 Pulse 105 H 01/09/24 08:00 Resp 24 01/09/24 08:00 BP 133/73 01/09/24 08:00 Pulse Ox 94 L 01/09/24 08:00 FiO2 Intake & Output 01/08/24 01/09/24 01/09/24 18:59 06:59 18:59 Intake Total 2195.724 925 840 Output Total 2635 202 41 Balance -439.276 723 799 Weight 103.3 kg Intake: IV 1255 900 240 Invasive Line 3 30 40 Mvi, Adult No.4 with Vit 525 525 K 10 ml Thiamine 100 mg Folic Acid 1 mg In Sodium Chloride 0.9% 1,000 ml @ 75 mls/hr IV DAILY [facility] Rx#:[id number] Sodium Chloride 0.9% 1, 650 000 ml @ 130 mls/hr IV . Q7H42M [facility] Rx#:[id number] Sodium Chloride 0.9% 1, 375 150 000 ml @ 75 mls/hr IV . [id number] [facility] Rx#:[id number] cefTRIAXone 2 gm In 50 50 Sodium Chloride 0.9% 50 ml @ 100 mls/hr IVPB Q12HR [facility] Rx#:[id number] Intake, IV Titration 60.724 Amount Dexmedetomidine/0.9% NaCl 60.724 (Pmx) 400 mcg In Empty Bag 1 bag @ 0.2 MCG/KG/HR 4.082 mls/hr IV .Q24H [facility] Rx#:[id number] Oral 380 25 600 Hemodialysis 500 Output: Urine 135 200 40 Stool 2 1 Hemodialysis 2500 Other: Voiding Method Indwelling Catheter Indwelling Catheter Indwelling Catheter # Bowel Movements 1 1 1 - Exam No acute distress, currently on room air. The patient is very calm. HEENT examination is grossly unremarkable. Mucous membranes are moist. No oral lesions. Neck supple. Full range of motion. No adenopathy thyromegaly or neck vein distention. Cardiovascular examination reveals regular rhythm rate. S1-S2 normal. No S3 or S4. No discernible murmur noted. Heart rate 95 bpm. Lungs reveal mild scattered rhonchi. No wheezes or crackles. Breath sounds equal bilaterally. Saturations are 95 % on room air. Abdomen soft bowel sounds are heard. No masses or tenderness. Extremities are intact. No cyanosis clubbing or edema. Skin is without rash or lesion. Neurologic examination is called to assess. - Labs CBC & Chem 7: 01/09/24 06:09 01/09/24 06:09 Labs: Abnormal Lab Results - Last 24 Hours (Table) 01/08/24 01/09/24 01/09/24 Range/Units 17:14 06:09 06:09 RBC 2.75 L (4.30-5.90) m/uL Hgb 7.8 L D (13.0-17.5) gm/dL Hct 22.8 L (39.0-53.0) % RDW 15.8 H (11.5-15.5) % Plt Count 124 L (150-450) k/uL Lymphocytes # 0.8 L (1.0-4.8) k/uL Sodium 130 L 130 L (137-145) mmol/L Carbon Dioxide 15 L (22-30) mmol/L BUN 53 H 59 H (9-20) mg/dL Creatinine 4.78 H 5.67 H (0.66-1.25) mg/dL Glucose 112 H 100 H (74-99) mg/dL Calcium 7.0 L 7.0 L (8.4-10.2) mg/dL Microbiology - Last 24 Hours (Table) 01/04/24 22:15 CSF Gram Stain - Final Cerebral Spinal Fluid CSF Culture - Final Assessment and Plan Assessment: Acute alcohol withdrawal syndrome. Acute metabolic encephalopathy. Possible bacteremia secondary to coagulase-negative staphylococci. Hypothermia, resolved. Acute transaminitis. Acute RSV infection. Acute kidney injury secondary to rhabdomyolysis, currently on hemodialysis. History of alcoholism. History of hepatitis C. History of gastroesophageal reflux disease. History of IV drug abuse. History of pancreatitis. History of bipolar disorder and depression. Plan: Plan dated January 08, 2024. The patient is seen today in the intensive care unit, room 255. The patient is currently on Ativan, for his alcohol withdrawal syndrome. He continues on dexmedetomidine, 0.4 mcg/kg/h. We will attempt to wean that off, by adding Haldol, Seroquel, and a clonidine patch. The patient has been in the intensive care unit since January 05. Today's hemodialysis session will be his third. Labs, x-rays, and medications are reviewed. The patient's mental status, is difficult to assess because of the dexmedetomidine. He continues on GI and DVT prophylaxis. He continues on Rocephin, and daptomycin, as per infectious diseases. He also continues on Decadron, for his swollen tongue. Additional recommendations and suggestions are forthcoming. Updrafts can be discontinued. Plan dated January 17, 2024. The patient was seen today in room 255. He is on room air. He is getting sa line at 75 cc an hour. The patient will have hemodialysis today. Today's session #4. The patient was able to be weaned off of dexmedetomidine. We added some Haldol, some pain medication, and Seroquel. Labs, x-rays, and medications are reviewed. The patient continues on Rocephin, as per infectious diseases. We will continue to follow make recommendations along the way. The patient's overall prognosis remains guarded. No additional recommendations are made at this time. Time with Patient: Greater than 30
[2024-01-09 11:12] LABS: Creatine Kinase 36783 U/L (55-170)
--- NOTE | 2024-01-09 11:16 | P.PN ---
Subjective Patient is doing better than yesterday He is resting in bed lying completely flat No shortness of breath denies chest discomfort Rhythm is normal He was started on clonidine On examination blood pressure 133/73 mmHg pulse rate 105 beats a minute and then 73 beats a minute respirations normal Heart sounds normal Breath sounds are clear Impression Rhabdomyolysis Acute renal failure, which continues to worsen Borderline troponins with a ratio of CPK troponin suggest skeletal muscle injury pattern in the setting of renal failure Suggest Agree with clonidine patch for withdrawal Start low-dose beta-blockers Continue management of rhabdomyolysis and worsening renal function DC nitroglycerin Agree with IV hydration Objective - Vital Signs Vital signs: Vital Signs Temp 97.7 F 01/09/24 08:00 Pulse 69 01/09/24 10:00 Resp 14 01/09/24 10:00 BP 142/79 01/09/24 10:00 Pulse Ox 95 01/09/24 10:00 FiO2 Intake & Output 01/08/24 01/09/24 01/09/24 18:59 06:59 18:59 Intake Total 2195.724 925 990 Output Total 2635 202 76 Balance -439.276 723 914 Weight 103.3 kg Intake: IV 1255 900 390 Invasive Line 3 30 40 Mvi, Adult No.4 with Vit 525 525 K 10 ml Thiamine 100 mg Folic Acid 1 mg In Sodium Chloride 0.9% 1,000 ml @ 75 mls/hr IV DAILY [facility] Rx#:[id number] Sodium Chloride 0.9% 1, 650 000 ml @ 130 mls/hr IV . Q7H42M [facility] Rx#:[id number] Sodium Chloride 0.9% 1, 375 300 000 ml @ 75 mls/hr IV . [id number] [facility] Rx#:[id number] cefTRIAXone 2 gm In 50 50 Sodium Chloride 0.9% 50 ml @ 100 mls/hr IVPB Q12HR [facility] Rx#:[id number] Intake, IV Titration 60.724 Amount Dexmedetomidine/0.9% NaCl 60.724 (Pmx) 400 mcg In Empty Bag 1 bag @ 0.2 MCG/KG/HR 4.082 mls/hr IV .Q24H [facility] Rx#:[id number] Oral 380 25 600 Hemodialysis 500 Output: Urine 135 200 75 Stool 2 1 Hemodialysis 2500 Other: Voiding Method Indwelling Catheter Indwelling Catheter Indwelling Catheter # Bowel Movements 1 1 1 - Labs CBC & Chem 7: 01/09/24 06:09 01/09/24 06:09 Labs: Abnormal Lab Results - Last 24 Hours (Table) 01/08/24 01/09/24 01/09/24 Range/Units 17:14 06:09 06:09 RBC 2.75 L (4.30-5.90) m/uL Hgb 7.8 L D (13.0-17.5) gm/dL Hct 22.8 L (39.0-53.0) % RDW 15.8 H (11.5-15.5) % Plt Count 124 L (150-450) k/uL Lymphocytes # 0.8 L (1.0-4.8) k/uL Sodium 130 L 130 L (137-145) mmol/L Carbon Dioxide 15 L (22-30) mmol/L BUN 53 H 59 H (9-20) mg/dL Creatinine 4.78 H 5.67 H (0.66-1.25) mg/dL Glucose 112 H 100 H (74-99) mg/dL Calcium 7.0 L 7.0 L (8.4-10.2) mg/dL Creatine Kinase 07543 H* (55-170) U/L Microbiology - Last 24 Hours (Table) 01/04/24 22:15 CSF Gram Stain - Final Cerebral Spinal Fluid CSF Culture - Final
--- NOTE | 2024-01-09 13:02 | P.PN ---
Subjective Progress Note Date: 01/09/24 Principal diagnosis: Reason for follow-up is fever and a positive blood culture Patient is a 38-year-old male with a past medical history of GERD for hypertension hepatitis C pancreatitis reflux history of alcoholism patient was brought into the ER by EMS after apparently the patient was noticed to be facedown in the snow when the EMS got him up he was unable to speak patient was hypothermic and subsequently brought into the ER for further evaluation, on arrival to the ER the patient did have a fever did have elevated white count chest x-ray UA was negative abdominal soft LP was done last night which came back negative as well. On today's evaluation that is 01/09/2024, the patient continues to be afebrile, the patient is on 2 L nasal cannula oxygen and breathing comfortably, The patient slightly more awake today however not having good historian no vomiting diarrhea or any other changes reported by the nursing staff. Patient did have white count of 7.4, creatinine 5.67, CK down to 3673 blood culture repeat pending Objective - Vital Signs Vital signs: Vital Signs Temp 97.7 F 01/09/24 08:00 Pulse 71 01/09/24 12:00 Resp 17 01/09/24 12:00 BP 139/88 01/09/24 12:00 Pulse Ox 97 01/09/24 12:00 FiO2 Intake & Output 01/08/24 01/09/24 01/09/24 18:59 06:59 18:59 Intake Total 2195.724 925 990 Output Total 2635 202 76 Balance -439.276 723 914 Weight 103.3 kg Intake: IV 1255 900 390 Invasive Line 3 30 40 Mvi, Adult No.4 with Vit 525 525 K 10 ml Thiamine 100 mg Folic Acid 1 mg In Sodium Chloride 0.9% 1,000 ml @ 75 mls/hr IV DAILY [facility] Rx#:[id number] Sodium Chloride 0.9% 1, 650 000 ml @ 130 mls/hr IV . Q7H42M [facility] Rx#:[id number] Sodium Chloride 0.9% 1, 375 300 000 ml @ 75 mls/hr IV . [id number] [facility] Rx#:[id number] cefTRIAXone 2 gm In 50 50 Sodium Chloride 0.9% 50 ml @ 100 mls/hr IVPB Q12HR [facility] Rx#:[id number] Intake, IV Titration 60.724 Amount Dexmedetomidine/0.9% NaCl 60.724 (Pmx) 400 mcg In Empty Bag 1 bag @ 0.2 MCG/KG/HR 4.082 mls/hr IV .Q24H [facility] Rx#:[id number] Oral 380 25 600 Hemodialysis 500 Output: Urine 135 200 75 Stool 2 1 Hemodialysis 2500 Other: Voiding Method Indwelling Catheter Indwelling Catheter Indwelling Catheter # Bowel Movements 1 1 1 - Exam GENERAL DESCRIPTION: Middle-age male lying in bed in no distress RESPIRATORY SYSTEM: Unlabored breathing , decreased breath sounds at bases HEART: S1 S2 regular rate and rhythm , ABDOMEN: Soft , no tenderness EXTREMITIES: No edema feet - Labs CBC & Chem 7: 01/09/24 06:09 01/09/24 06:09 Labs: Abnormal Lab Results - Last 24 Hours (Table) 01/08/24 01/09/24 01/09/24 Range/Units 17:14 06:09 06:09 RBC 2.75 L (4.30-5.90) m/uL Hgb 7.8 L D (13.0-17.5) gm/dL Hct 22.8 L (39.0-53.0) % RDW 15.8 H (11.5-15.5) % Plt Count 124 L (150-450) k/uL Lymphocytes # 0.8 L (1.0-4.8) k/uL Sodium 130 L 130 L (137-145) mmol/L Carbon Dioxide 15 L (22-30) mmol/L BUN 53 H 59 H (9-20) mg/dL Creatinine 4.78 H 5.67 H (0.66-1.25) mg/dL Glucose 112 H 100 H (74-99) mg/dL Calcium 7.0 L 7.0 L (8.4-10.2) mg/dL Creatine Kinase 16404 H* (55-170) U/L Microbiology - Last 24 Hours (Table) 01/04/24 22:15 CSF Gram Stain - Final Cerebral Spinal Fluid CSF Culture - Final Assessment and Plan (1) Fever with leukocytosis and leukocyte count greater than or equal to 20,000 Current Visit: Yes Status: Acute Code(s): D72.829 - ELEVATED WHITE BLOOD CELL COUNT, UNSPECIFIED SNOMED Code(s): 495792096 (2) Positive blood culture Current Visit: No Status: Acute Code(s): R78.81 - BACTEREMIA SNOMED Co de(s): 469579746 Plan: 1patient presented hospital with episode of unresponsiveness by the EMS patient did have features of sepsis running a fever did have elevated white count, initial workup including a chest x-ray and UA has been negative the patient ab dominal was soft on clinical examination and there was no evidence of any cellulitis with a question of possible STAIN REMOVER infection however the patient did have LP completed last night by ER physician and is negative 2-patient with a positive blood culture with coagulase-negative staph with concern for possible vs contamination possible pathogen monitor slowly as the patient did have a fever on admission to the hospital and some cellulitis of the left lower extremity 3-patient repeat blood cultures are currently pending patient is covered with daptomycin Rocephin and monitor clinical course closely Dictation was produced using [employer] dictation software. please excuse any grammatical, word or spelling errors. Time with Patient: Less than 30
--- NOTE | 2024-01-09 16:36 | P.PN ---
Subjective Patient is seen for follow-up for acute kidney injury. He was started on hemodialysis on 01/05/2024 for oliguric ATN and severe rhabdomyolysis. Urine output at about 10 to 20 cc an hour. Patient is scheduled for hemodialysis again today. Patient is much more awake today. He is able to carry on a conversation. He is tolerating oral intake. IV fluids decreased to 75 cc an per hour. Objective - Vital Signs Vital signs: Vital Signs Temp 97.7 F 01/09/24 08:00 Pulse 58 L 01/09/24 16:00 Resp 14 01/09/24 16:00 BP 148/81 01/09/24 16:00 Pulse Ox 96 01/09/24 16:00 FiO2 Intake & Output 01/08/24 01/09/24 01/09/24 18:59 06:59 18:59 Intake Total 2195.957 698 7622 Output Total 2635 202 242 Balance -439.460 015 6970 Weight 103.3 kg Intake: IV 1255 900 735 Invasive Line 3 30 40 Mvi, Adult No.4 with Vit 525 525 K 10 ml Thiamine 100 mg Folic Acid 1 mg In Sodium Chloride 0.9% 1,000 ml @ 75 mls/hr IV DAILY [facility] Rx#:[id number] Sodium Chloride 0.9% 1, 650 000 ml @ 130 mls/hr IV . Q7H42M [facility] Rx#:[id number] Sodium Chloride 0.9% 1, 120 000 ml @ 40 mls/hr IV . Q24H [facility] Rx#:[id number] Sodium Chloride 0.9% 1, 375 525 000 ml @ 75 mls/hr IV . [id number] [facility] Rx#:[id number] cefTRIAXone 2 gm In 50 50 Sodium Chloride 0.9% 50 ml @ 100 mls/hr IVPB Q12HR [facility] Rx#:[id number] Intake, IV Titration 60.724 Amount Dexmedetomidine/0.9% NaCl 60.724 (Pmx) 400 mcg In Empty Bag 1 bag @ 0.2 MCG/KG/HR 4.082 mls/hr IV .Q24H [facility] Rx#:[id number] Oral 053 04 8121 Hemodialysis 500 Output: Urine 135 200 240 Stool 2 2 Hemodialysis 2500 Other: Voiding Method Indwelling Catheter Indwelling Catheter Indwelling Catheter # Bowel Movements 1 1 1 - Exam Patient is sleeping but arousable Examination of the heart S1 and S2 Examination of the lungs bilateral breath sounds are heard Abdomen is soft nontender Examination of lower extremity shows no significant edema Patient is moving all 4 extremities. Answers simple questions appropriately - Labs CBC & Chem 7: 01/09/24 06:09 01/09/24 06:09 Labs: Abnormal Lab Results - Last 24 Hours (Table) 01/08/24 01/09/24 01/09/24 Range/Units 17:14 06:09 06:09 RBC 2.75 L (4.30-5.90) m/uL Hgb 7.8 L D (13.0-17.5) gm/dL Hct 22.8 L (39.0-53.0) % RDW 15.8 H (11.5-15.5) % Plt Count 124 L (150-450) k/uL Lymphocytes # 0.8 L (1.0-4.8) k/uL Sodium 130 L 130 L (137-145) mmol/L Carbon Dioxide 15 L (22-30) mmol/L BUN 53 H 59 H (9-20) mg/dL Creatinine 4.78 H 5.67 H (0.66-1.25) mg/dL Glucose 112 H 100 H (74-99) mg/dL Calcium 7.0 L 7.0 L (8.4-10.2) mg/dL Creatine Kinase 03824 H* (55-170) U/L Microbiology - Last 24 Hours (Table) 01/04/24 22:15 CSF Gram Stain - Final Cerebral Spinal Fluid CSF Culture - Final Assessment and Plan Assessment: 1. Acute kidney injury secondary to ATN secondary to severe sepsis and rhabdomyolysis. Baseline creatinine 0.5-0.6 and up to 4.02 on 01/05/24 and started HD. Oliguric. Diuretic unresponsive. No hydronephrosis noted on abdominal ultrasound. 2. Rhabdomyolysis secondary to fall/immobility. CK level greater than 160,000, decreased 45775 today 3. Severe sepsis secondary to gram-positive bacteremia. On IV antibiotics. 4. Metabolic acidosis secondary to acute kidney injury. 5. Initially hypernatremia, now mildly hyponatremic at 133. 6. Hypocalcemia secondary to acute kidney injury and rhabdomyolysis. Improved. Avoid aggressive calcium replacement to avoid calcium phosphate precipitation in tissues. 7. Non-gap metabolic acidosis secondary to severe acute kidney injury and rhabdomyolysis Plan: Repeat hemodialysis today. Decrease saline to about 40 cc an hour Encourage increase oral intake particularly fluid.
[2024-01-09] MEDS: HALOPERIDOL LACTATE 5 MG/ML 1 ML VIAL IVP PRN (17:48)
[2024-01-09 19:40] LABS: Hepatitis B Surface AB- Quant 3.5 mIU/mL
[2024-01-09 20:21] LABS: Hepatitis B Surface Antigen Nonreactive
[2024-01-09] MEDS: METOPROLOL TARTRATE 25 MG TAB PO SCH (22:08)
[2024-01-10 04:01] LABS: African American GFR (CKD) 17 (>60 ml/min/1.73 sqM); Anion Gap 1 mmol/L; Blood Urea Nitrogen 40 mg/dL (9-20); C Reactive Protein 4.5 mg/dL (<1.0); Calcium 7.1 mg/dL (8.4-10.2); Carbon Dioxide 26 mmol/L (22-30); Chloride 103 mmol/L (98-107); Glucose 118 mg/dL (74-99); Non-African American GFR(CKD) 15 (>60 ml/min/1.73 sqM); Potassium 3.3 mmol/L (3.5-5.1); Sodium 130 mmol/L (137-145)
[2024-01-10 04:32] LABS: Anisocytosis Slight; Basophils % (A) 0 %; Eosinophils % (A) 0 %; HCT 23.9 % (39.0-53.0); Lymphocytes # (A) 0.9 k/uL (1.0-4.8); Lymphocytes % (A) 14 %; MCH 27.9 pg (25.0-35.0); MCHC 33.6 g/dL (31.0-37.0); MCV 83.1 fL (80.0-100.0); Mean Platelet Volume 9.5; Monocytes # (A) 0.8 k/uL (0-1.0); Monocytes % (A) 11 %; Neutrophils # (A) 4.8 k/uL (1.3-7.7); Neutrophils % (A) 71 %; Platelet Count 136 k/uL (150-450); RBC 2.87 m/uL (4.30-5.90); WBC 6.7 k/uL (3.8-10.6)
[2024-01-10 08:20] VITALS: BMI 34.5
--- NOTE | 2024-01-10 09:39 | P.PN ---
Subjective Progress Note Date: 01/10/24 The patient is a 38-year-old male who is admitted to the hospital with acute EtOH withdrawal and RSV infection. Patient was found to have rhabdomyolysis and acute renal failure. Cardiology was consulted for elevation of troponins, which is likely secondary to muscle skeletal injury and acute renal failure. Patient was interviewed and examined resting comfortably in bed. He was started on a beta-justin yesterday and appears to be tolerating, however he did have bradycardia overnight. GENERAL: Well-appearing, well-nourished and in no acute distress. NECK: Supple without JVD or thyromegaly. LUNGS: Breath sounds clear to auscultation bilaterally. Respiration equal and unlabored. Bilateral rhonchi. HEART: Regular rate and rhythm without murmurs, rubs or gallops. S1 and S2 heard. EXTREMITIES: Normal range of motion, no edema. No clubbing or cyanosis. Peripheral pulses intact and strong. TELEMETRY: Sinus bradycardia LABS: CBC 6.7, hemoglobin 8.0, hematocrit 23.9, platelet 136, potassium 3.3, sodium 130, BUN 40, creatinine 4.63 IMPRESSION: EtOH withdrawal Metabolic encephalopathy Rhabdomyolysis Acute renal failure Borderline troponins, likely secondary to skeletal muscle injury and acute renal failure Acute RSV infection PLAN: Switch to carvedilol Continue supportive treatment and aggressive pulmonary hygiene Further recommendations to be based on clinical course I am dictating on behalf of Dr Sergio Perez's history/physical and assessment/plan. Objective - Vital Signs Vital signs: Vital Signs Temp 98.7 F 01/10/24 04:00 Pulse 53 L 01/10/24 07:00 Resp 12 01/10/24 07:00 BP 168/91 01/10/24 07:00 Pulse Ox 96 01/10/24 07:00 FiO2 Intake & Output 01/09/24 01/10/24 01/10/24 18:59 06:59 18:59 Intake Total 3115 480 40 Output Total 6348 245 25 Balance 837 235 15 Weight 103.1 kg 103.1 kg Intake: IV 815 480 40 Invasive Line 3 40 Sodium Chloride 0.9% 1, 200 480 40 000 ml @ 40 mls/hr IV . Q24H [facility] Rx#:[id number] Sodium Chloride 0.9% 1, 525 000 ml @ 75 mls/hr IV . [id number] [facility] Rx#:[id number] cefTRIAXone 2 gm In 50 Sodium Chloride 0.9% 50 ml @ 100 mls/hr IVPB Q12HR [facility] Rx#:[id number] Oral 1800 Hemodialysis 500 Output: Urine 275 245 25 Stool 3 Hemodialysis 2000 Other: Voiding Method Indwelling Catheter Indwelling Catheter # Bowel Movements 0 0 - Labs CBC & Chem 7: 01/10/24 03:33 01/10/24 03:33 Labs: Abnormal Lab Results - Last 24 Hours (Table) 01/05/24 01/09/24 01/10/24 Range/Units 06:02 06:09 03:33 RBC (4.30-5.90) m/uL Hgb (13.0-17.5) gm/dL Hct (39.0-53.0) % RDW (11.5-15.5) % Plt Count (150-450) k/uL Lymphocytes # (1.0-4.8) k/uL Sodium (137-145) mmol/L Potassium (3.5-5.1) mmol/L BUN (9-20) mg/dL Creatinine (0.66-1.25) mg/dL Glucose (74-99) mg/dL Calcium (8.4-10.2) mg/dL Creatine Kinase 05076 H* (55-170) U/L C-Reactive Protein (<1.0) mg/dL Procalcitonin 51.60 H 1.46 H (0.02-0.09) ng/mL 01/10/24 01/10/24 Range/Units 03:33 03:33 RBC 2.87 L (4.30-5.90) m/uL Hgb 8.0 L (13.0-17.5) gm/dL Hct 23.9 L (39.0-53.0) % RDW 16.0 H (11.5-15.5) % Plt Count 136 L (150-450) k/uL Lymphocytes # 0.9 L (1.0-4.8) k/uL Sodium 130 L (137-145) mmol/L Potassium 3.3 L (3.5-5.1) mmol/L BUN 40 H (9-20) mg/dL Creatinine 4.63 H (0.66-1.25) mg/dL Glucose 118 H (74-99) mg/dL Calcium 7.1 L (8.4-10.2) mg/dL Creatine Kinase (55-170) U/L C-Reactive Protein 4.5 H (<1.0) mg/dL Procalcitonin (0.02-0.09) ng/mL Microbiology - Last 24 Hours (Table) 01/08/24 17:22 Blood Culture - Preliminary Blood 01/04/24 22:15 CSF Gram Stain - Final Cerebral Spinal Fluid CSF Culture - Final
--- NOTE | 2024-01-10 10:23 | P.PN ---
Subjective Progress Note Date: 01/09/24 patient is a 38-year-old gentleman past medical significant for alcohol abuse, liver disease who presented to the ER for altered mental status. Patient has a history of alcohol abuse and has multiple admissions to this hospital for alcohol detox. Patient was brought in the ED by EMS after being found lying facedown in snow. There was no obvious sign of any trauma. Patient was unable to respond to any questions. EMS brought him immediately to the ER Initial lab work done in the ER showed WBC 22, hemoglobin 16.4, platelet count 274, sodium 152, potassium 5.1, BUN 38, creatinine 3.47, glucose 105, bilirubin 0.7, AST 1723, ALT 399, troponin 2.39 EKG done in the ER showed heart rate of 125, no ST segment elevation or depression seen, no T-wave inversions seen. Chest x-ray done in the ER showed no acute cardiopulmonary process CT head done showed no acute intracranial process CT cervical spine negative for any acute fracture or dislocation Patient admitted to internal medicine service. On my interview with patient, patient was much more responsive, kept on asking about getting soda and water. Stated that he has been laying on the ground for more than 15 hours. Patient is currently running a fever. Denies any chest pain or shortness of breath. Complaining of generalized body aches 01/05. Patient seen and examined. Blood work done this morning showed WBC 10.5, hemoglobin 9.8, platelet count 137, sodium 132, potassium 3.8, BUN 60, creatinine 4.02, calcium 6, CK greater than [id number]. 2D echo done showed LVEF of 50 to 55%, no mitral regurg, trace tricuspid regurg 01/06. Patient seen and examined. Currently in restraints. Currently getting dialysis. Complaining of pain in his tongue, apparently bit his tongue during the fall. 01/07. Patient seen and examined. Continues to be in ICU. Currently on Precedex and IV fluids. Patient currently off restraints, is alert to self. 01/08. Patient seen and examined.Blood work done this morning showed WBC 8.7, hemoglobin 9.3, sodium 137, potassium 4.7, BUN 66, creatinine 6.25, AST is 1516, ALT is 546, currently on 2 L of oxygen. Patient is alert, answering questions, currently on Precedex drip. 01/09/2024 Patient is in MICU. Currently lying in the bed. Awake and alert but lethargic and drowsy. Currently on room air. Tolerating oral diet. Laboratory data showed WBC 7.4 hemoglobin 7.8 and platelets 124, sodium 1:30 potassium 3.6 chloride 103 bicarb is 22 BUN 59 and creatinine 5.67 REVIEW OF SYSTEMS: Denies any chest pain. Denies any shortness of breath No complaint of nausea, vomiting or abdominal pain PHYSICAL EXAMINATION: GENERAL: The patient is alert to self, not in any acute distress. Ill looking HEENT: Pupils are round and equally reacting to light. EOMI. No scleral icterus. No conjunctival pallor. Normocephalic, atraumatic. No pharyngeal erythema. No thyromegaly. Tongue swollen secondary to the bite CARDIOVASCULAR: S1 and S2 present. No murmurs, rubs, or gallops. Tachycardic PULMONARY: Coarse breath sound bilaterally, no wheezing or crackles. ABDOMEN: Soft, nontender, nondistended, normoactive bowel sounds. No palpable organomegaly. MUSCULOSKELETAL: No joint swelling or deformity. EXTREMITIES: No cyanosis, clubbing, or pedal edema. NEUROLOGICAL: Gross neurological examination did not reveal any focal deficits. SKIN: No rashes. Assessment and plan Acute metabolic encephalopathy. Improving. Acute kidney injury secondary to ATN due to infection and rhabdomyolysis. requiring hemodialysis. Started on 01/05/2024. Gram-positive Bacteremia. Coagulase-negative staph. Repeat blood cultures negative. Sepsis Acute Rhabdomyolysis secondary to fall Hypothermia Hypernatremia. Resolved. Hypocalcemia secondary to acute kidney injury and rhabdomyolysis. Leukocytosis Elevated troponin level. Ratio of CPK and troponin suggest skeletal muscle injury pattern in the sitting up acute right. Acute transaminitis Fall History of alcohol abuse Acute alcohol withdrawal symptoms History of depression Monitor vital signs Monitor CBC Monitor CMP Continue telemetry monitoring Trend troponin. Follow-up on blood cultures 2D echo done showed LVEF of 50 to 55%, no mitral regurg, trace tricuspid regurg Avoid nephrotoxic agent Avoid hepatotoxic agents Strict I's and O's, daily weights Continue IV fluids Continue IV Rocephin and daptomycin patient is status post LP with CSF culture negative. Continue CIWA protocol continue high-dose thiamine and folic acid Continue dialysis per nephrology, getting his third round of dialysis today ID following Cardiology following Critical care following Labs and medication were reviewed.. Continue with symptomatic treatment. Resume home medication. Monitor labs and vitals. DVT and GI prophylaxis. Dictation was produced using [employer] dictation software. please excuse any grammatical, word or spelling errors. Objective - Vital Signs Vital signs: Vital Signs Temp 97.7 F 01/09/24 08:00 Pulse 69 01/09/24 10:00 Resp 14 01/09/24 10:00 BP 142/79 01/09/24 10:00 Pulse Ox 95 01/09/24 10:00 FiO2 Intake & Output 01/08/24 01/09/24 01/09/24 18:59 06:59 18:59 Intake Total 2195.724 925 990 Output Total 2635 202 76 Balance -439.276 723 914 Weight 103.3 kg Intake: IV 1255 900 390 Invasive Line 3 30 40 Mvi, Adult No.4 with Vit 525 525 K 10 ml Thiamine 100 mg Folic Acid 1 mg In Sodium Chloride 0.9% 1,000 ml @ 75 mls/hr IV DAILY [facility] Rx#:[id number] Sodium Chloride 0.9% 1, 650 000 ml @ 130 mls/hr IV . Q7H42M [facility] Rx#:[id number] Sodium Chloride 0.9% 1, 375 300 000 ml @ 75 mls/hr IV . [id number] [facility] Rx#:[id number] cefTRIAXone 2 gm In 50 50 Sodium Chloride 0.9% 50 ml @ 100 mls/hr IVPB Q12HR [facility] Rx#:[id number] Intake, IV Titration 60.724 Amount Dexmedetomidine/0.9% NaCl 60.724 (Pmx) 400 mcg In Empty Bag 1 bag @ 0.2 MCG/KG/HR 4.082 mls/hr IV .Q24H [facility] Rx#:[id number] Oral 380 25 600 Hemodialysis 500 Output: Urine 135 200 75 Stool 2 1 Hemodialysis 2500 Other: Voiding Method Indwelling Catheter Indwelling Catheter Indwelling Catheter # Bowel Movements 1 1 1 - Labs CBC & Chem 7: 01/10/24 03:33 01/10/24 03:33 Labs: Abnormal Lab Results - Last 24 Hours (Table) 01/08/24 01/09/24 01/09/24 Range/Units 17:14 06:09 06:09 RBC 2.75 L (4.30-5.90) m/uL Hgb 7.8 L D (13.0-17.5) gm/dL Hct 22.8 L (39.0-53.0) % RDW 15.8 H (11.5-15.5) % Plt Count 124 L (150-450) k/uL Lymphocytes # 0.8 L (1.0-4.8) k/uL Sodium 130 L 130 L (137-145) mmol/L Carbon Dioxide 15 L (22-30) mmol/L BUN 53 H 59 H (9-20) mg/dL Creatinine 4.78 H 5.67 H (0.66-1.25) mg/dL Glucose 112 H 100 H (74-99) mg/dL Calcium 7.0 L 7.0 L (8.4-10.2) mg/dL Microbiology - Last 24 Hours (Table) 01/04/24 22:15 CSF Gram Stain - Final Cerebral Spinal Fluid CSF Culture - Final
--- NOTE | 2024-01-10 10:29 | P.PN ---
Subjective Progress Note Date: 01/10/24 Principal diagnosis: Urosepsis, rhabdomyolysis, renal failure. Acute metabolic encephalopathy, and acute alcohol withdrawal This is a 38-year-old white male with history of multiple medical problems including alcoholism, hepatitis C, hypertension, GERD, patient was brought into the ER yesterday after he was noted to be face down in the snow, upon EMS arrival, the patient was hypothermic, and altered mental status. In the ER, the patient was noted to have temp of 102.6, he was tachycardic, and was not hypotensive or hypoxic. Workup in the ER included CBC which showed le ukocytosis. His bicarb was noted to be low, patient was noted to have anion gap metabolic acidosis, he was also noted to have renal failure with a BUN of 51 creatinine 3.45. His CPK was significantly elevated almost 92,000, troponin elevated at 1.6, and liver enzymes were also elevated including AST and ALT. There was evidence of blood in the urine. No drug screen was done at the time of arrival, but his alcohol level was less than 10. His RSV PCR was positive. Drug screen in the ICU was positive for barbiturates, amphetamine, methamphetamine, and benzodiazepines. Patient was seen by many consultants including infectious disease, patient was started empirically on antibiotics in the form of Rocephin and vancomycin, and infectious disease recommended a lumbar puncture on this patient. Initial chemistry on the spinal fluid seems to be unremarkable. Final report is pending. His blood cultures today are positive for gram-positive cocci in clusters. Patient was seen by nephrology today, and recommending starting the patient on hemodialysis. Patient was felt to have acute kidney injury secondary to ATN, and severe sepsis and rhabdomyolysis, oliguric, unresponsive to diuretics, and there was no hydronephrosis on the abdominal ultrasound. At any rate patient is scheduled to have a dialysis catheter placement today. Last night the patient was on the regular medical floor, I was made aware of this patient because his CIWA score was 20,, patient was already on a bicarb drip, and I have recommended transferring the patient out of the floor to the ICU saw this patient this morning, reviewed all his labs and workup, remains on bicarb drip, empirically on antibiotics for his presumptive severe sepsis and bacteremia as noted on blood cultures today, patient continues to have significantly elevated CPK, continues to have worsening renal failure. Blood pressure was high and I recommended Cleviprex at 2 mg/h. Also recommended a drug screen to be done. Patient did not require Precedex, he is agitation is well-controlled with Ativan. According to the patient his last alcohol drink was 2 days ago. Patient is not a great historian, seems to mumble but does not give adequate history. And he is by all means encephalopathic. But able to protect his airways, and able to cough and clear secretions. Hence did not feel the need to intubate this patient at this point. Procalcitonin level this morning is 45.9 Patient was reevaluated today on 01/06/2024, his blood cultures are actually now coagulase-negative staph, most likely blood cultures are contaminated. Patient is still restless and agitated easily, remains in the ICU, he will be undergoing dialysis today, he had dialysis yesterday. Complaining of hurting all over, patient remains a bit confused, and lethargic. His creatinine is high at 4.3, hemoglobin is down from 16.3 on admission now 10.3, platelets are coming down, hence I am stopping his heparin. CPK remains high at 158,000, patient is still receiving fluids at 200 cc/h, and he will have more dialysis today. Patient is extremely oliguric. Liver enzymes are also elevated with a AST of 2498, and ALT 573, improving compared to yesterday Patient was reevaluated today on 01/07/2024, remains in the ICU, marginal at best. On 3 L nasal cannula, remains a bit encephalopathic with a slight improvement in his overall mental status patient knows that he is at [facility], he realized the year is 2023. Patient continues to have marginal urine output, he is oliguric, intermittently on hemodialysis, patient remains on daptomycin and ceftriaxone, blood cultures were contaminated with staph/coagulase negative. Spinal fluid cultures have been negative CPK is coming down today, he is down to 89,000 from 159,000 yesterday. Renal functioning is about the same with a creatinine 4.60 and BUN of 49, Liver enzymes are steadily improving. And ammonia level is less than 90. His IV fluid remains at 200 cc/h patient is receiving MVI. Progress note dated January 08, 2024. 38-year-old male who was admitted to the hospital on 04 January. The patient came to the intensive care unit on the . Currently, the patient is seen today in room 255. The patient is on room air. He is getting saline at 130 cc an hour. He continues on dexmedetomidine at 0.4 mcg/kg/h. The patient has had hemodialysis, twice, but is planning to have hemodialysis again today. Will add some Haldol, Seroquel, and clonidine patch to his regimen, to get him off the dexmedetomidine. Current labs include white count 8.7, hemoglobin 9.3, hem atocrit 27.8, and platelet count 108,000. Sodium 131, potassium 4.7, chlorides 105, CO2 14, anion gap 12, BUN 66, creatinine 6.25. AST is 1516. ALT is 546. CK is down from 89,000, to 73,807. Blood cultures are positive for coag negative staph. No chest x-ray to report on. Progress note dated January 09, 2024. 38-year-old male who was admitted to the hospital on January 04. The patient c meredith to the intensive care unit, on the . Currently, the patient is seen today in room 255. The patient continues on room air. The patient is getting saline at 75 cc an hour. He will have another hemodialysis session today, which is #4. Yesterday, he had hemodialysis, and 2 L was removed. He is currently off the dexmedetomidine. White count 7.4, hemoglobin 7.8, hematocrit 22.8, platelet count 124,000. Sodium 130, potassium 3.6, chlorides 103, CO2 22, BUN 59, creatinine 5.67. His calcium is 7.0. Blood cultures were positive for coag negative staph. Progress note dated January 10, 2024. 38-year-old male again seen today in room 255, the intensive care unit. Currently, the patient is on room air. He is getting saline at 40 cc an hour. According to his nurse, he had an uneventful night. In our opinion, the patient is stable to be transferred out of the intensive care unit. Current labs include a white count of 6.7, hemoglobin 8, hematocrit 23.9, and a platelet count of 136,000. Sodium 130, potassium 3.3, chlorides 103, CO2 26, BUN 40, creatinine 4.63. His CK is down to 36,783. Procalcitonin level is 1.46. Objective - Vital Signs Vital signs: Vital Signs Temp 98.6 F 01/10/24 08:00 Pulse 53 L 01/10/24 08:00 Resp 17 01/10/24 08:00 BP 145/78 01/10/24 08:00 Pulse Ox 95 01/10/24 08:00 FiO2 Intake & Output 01/09/24 01/10/24 01/10/24 18:59 06:59 18:59 Intake Total 3115 480 160 Output Total 2278 245 25 Balance 837 235 135 Weight 103.1 kg 103.1 kg Intake: IV 815 480 160 Invasive Line 3 40 Sodium Chloride 0.9% 1, 200 480 160 000 ml @ 40 mls/hr IV . Q24H [facility] Rx#:[id number] Sodium Chloride 0.9% 1, 525 000 ml @ 75 mls/hr IV . [id number] [facility] Rx#:[id number] cefTRIAXone 2 gm In 50 Sodium Chloride 0.9% 50 ml @ 100 mls/hr IVPB Q12HR [facility] Rx#:[id number] Oral 1800 Hemodialysis 500 Output: Urine 275 245 25 Stool 3 Hemodialysis 2000 Other: Voiding Method Indwelling Catheter Indwelling Catheter Indwelling Catheter # Bowel Movements 0 0 - Exam No acute distress, currently on room air. The patient is very calm. HEENT examination is grossly unremarkable. Mucous membranes are moist. No oral lesions. Neck supple. Full range of motion. No adenopathy thyromegaly or neck vein distention. Cardiovascular examination reveals regular rhythm rate. S1-S2 normal. No S3 or S4. No discernible murmur noted. Heart rate 53 bpm. Lungs reveal mild scattered rhonchi. No wheezes or crackles. Breath sounds equal bilaterally. Saturations are 95 % on room air. Abdomen soft bowel sounds are heard. No masses or tenderness. Extremities are intact. No cyanosis clubbing or edema. Skin is without rash or lesion. Neurologic examination is improved. The patient is verbal. Much more oriented. - Labs CBC & Chem 7: 01/10/24 03:33 01/10/24 03:33 Labs: Abnormal Lab Results - Last 24 Hours (Table) 01/05/24 01/09/24 01/10/24 Range/Units 06:02 06:09 03:33 RBC (4.30-5.90) m/uL Hgb (13.0-17.5) gm/dL Hct (39.0-53.0) % RDW (11.5-15.5) % Plt Count (150-450) k/uL Lymphocytes # (1.0-4.8) k/uL Sodium (137-145) mmol/L Potassium (3.5-5.1) mmol/L BUN (9-20) mg/dL Creatinine (0.66-1.25) mg/dL Glucose (74-99) mg/dL Calcium (8.4-10.2) mg/dL Creatine Kinase 63764 H* (55-170) U/L C-Reactive Protein (<1.0) mg/dL Procalcitonin 51.60 H 1.46 H (0.02-0.09) ng/mL 01/10/24 01/10/24 Range/Units 03:33 03:33 RBC 2.87 L (4.30-5.90) m/uL Hgb 8.0 L (13.0-17.5) gm/dL Hct 23.9 L (39.0-53.0) % RDW 16.0 H (11.5-15.5) % Plt Count 136 L (150-450) k/uL Lymphocytes # 0.9 L (1.0-4.8) k/uL Sodium 130 L (137-145) mmol/L Potassium 3.3 L (3.5-5.1) mmol/L BUN 40 H (9-20) mg/dL Creatinine 4.63 H (0.66-1.25) mg/dL Glucose 118 H (74-99) mg/dL Calcium 7.1 L (8.4-10.2) mg/dL Creatine Kinase (55-170) U/L C-Reactive Protein 4.5 H (<1.0) mg/dL Procalcitonin (0.02-0.09) ng/mL Microbiology - Last 24 Hours (Table) 01/08/24 17:22 Blood Culture - Preliminary Blood 01/04/24 22:15 CSF Gram Stain - Final Cerebral Spinal Fluid CSF Culture - Final Assessment and Plan Assessment: Acute alcohol withdrawal syndrome. Acute metabolic encephalopathy, improved. Possible bacteremia secondary to coagulase-negative staphylococci. Hypothermia, resolved. Acute transaminitis. Acute RSV infection. Acute kidney injury secondary to rhabdomyolysis, currently on hemodialysis. History of alcoholism. History of hepatitis C. History of gastroesophageal reflux disease. History of IV drug abuse. History of pancreatitis. History of bipolar disorder and depression. Plan: Plan dated January 08, 2024. The patient is seen today in the intensive care unit, room 255. The patient is currently on Ativan, for his alcohol withdrawal syndrome. He continues on dexmedetomidine, 0.4 mcg/kg/h. We will attempt to wean that off, by adding Haldol, Seroquel, and a clonidine patch. The patient has been in the intensive care unit since January 05. Today's hemodialysis session will be his third. Labs, x-rays, and medications are reviewed. The patient's mental status, is difficult to assess because of the dexmedetomidine. He continues on GI and DVT prophylaxis. He continues on Rocephin, and daptomycin, as per infectious diseases. He also continues on Decadron, for his swollen tongue. Additional recommendations and suggestions are forthcoming. Updrafts can be discontinued. Plan dated January 17, 2024. The patient was seen today in room 255. He is on room air. He is getting saline at 75 cc an hour. The patient will have hemodialysis today. Today's session #4. The patient was able to be weaned off of dexmedetomidine. We added some Haldol, some pain medication, and Seroquel. Labs, x-rays, and medications are reviewed. The patient continues on Rocephin, as per infectious diseases. We will continue to follow make recommendations along the way. The patient's overall prognosis remains guarded. No additional recommendations are made at this time. Plan dated January 10, 2024. The patient is seen today in room 255. He is on room air. The patient is receiving saline at 40 cc an hour. The patient has been seen by nephrology. Clinically, the patient is doing much better. He is much more awake and alert. Labs, x-rays, and medications are reviewed. The patient is stable for transfer out of the intensive care unit. The patient's Decadron is discontinued. He continues on Ativan, Seroquel, Haldol as needed, and other appropriate medications. We will continue to follow make recommendations along the way. Prognosis is guarded. Time with Patient: Less than 30
--- NOTE | 2024-01-10 11:21 | P.PN ---
Subjective Progress Note Date: 01/10/24 Principal diagnosis: Reason for follow-up is fever and a positive blood culture Patient is a 38-year-old male with a past medical history of GERD for hypertension hepatitis C pancreatitis reflux history of alcoholism patient was brought into the ER by EMS after apparently the patient was noticed to be facedown in the snow when the EMS got him up he was unable to speak patient was hypothermic and subsequently brought into the ER for further evaluation, on arrival to the ER the patient did have a fever did have elevated white count chest x-ray UA was negative abdominal soft LP was done last night which came back negative as well. On today's evaluation that is 01/10/2024, Patient is afebrile patient is currently on room air, slightly more awake alert today and denies having any shortness of breath, the patient denies any chest pain or cough, no vomiting today reported by the nursing staff. Patient white count is 6.7, creatinine 4.63 procalcitonin 1.46 blood culture repeat so far pending Objective - Vital Signs Vital signs: Vital Signs Temp 98.6 F 01/10/24 08:00 Pulse 53 L 01/10/24 08:00 Resp 17 01/10/24 08:00 BP 145/78 01/10/24 08:00 Pulse Ox 95 01/10/24 08:00 FiO2 Intake & Output 01/09/24 01/10/24 01/10/24 18:59 06:59 18:59 Intake Total 3115 480 160 Output Total 2278 245 25 Balance 837 235 135 Weight 103.1 kg 103.1 kg Intake: IV 815 480 160 Invasive Line 3 40 Sodium Chloride 0.9% 1, 200 480 160 000 ml @ 40 mls/hr IV . Q24H [facility] Rx#:[id number] Sodium Chloride 0.9% 1, 525 000 ml @ 75 mls/hr IV . [id number] [facility] Rx#:[id number] cefTRIAXone 2 gm In 50 Sodium Chloride 0.9% 50 ml @ 100 mls/hr IVPB Q12HR [facility] Rx#:[id number] Oral 1800 Hemodialysis 500 Output: Urine 275 245 25 Stool 3 Hemodialysis 2000 Other: Voiding Method Indwelling Catheter Indwelling Catheter Indwelling Catheter # Bowel Movements 0 0 - Exam GENERAL DESCRIPTION: Middle-age male lying in bed in no distress RESPIRATORY SYSTEM: Unlabored breathing , decreased breath sounds at bases HEART: S1 S2 regular rate and rhythm , ABDOMEN: Soft , no tenderness EXTREMITIES: No edema feet - Labs CBC & Chem 7: 01/10/24 03:33 01/10/24 03:33 Labs: Abnormal Lab Results - Last 24 Hours (Table) 01/05/24 01/10/24 01/10/24 Range/Units 06:02 03:33 03:33 RBC (4.30-5.90) m/uL Hgb (13.0-17.5) gm/dL Hct (39.0-53.0) % RDW (11.5-15.5) % Plt Count (150-450) k/uL Lymphocytes # (1.0-4.8) k/uL Sodium 130 L (137-145) mmol/L Potassium 3.3 L (3.5-5.1) mmol/L BUN 40 H (9-20) mg/dL Creatinine 4.63 H (0.66-1.25) mg/dL Glucose 118 H (74-99) mg/dL Calcium 7.1 L (8.4-10.2) mg/dL C-Reactive Protein 4.5 H (<1.0) mg/dL Procalcitonin 51.60 H 1.46 H (0.02-0.09) ng/mL 01/10/24 Range/Units 03:33 RBC 2.87 L (4.30-5.90) m/uL Hgb 8.0 L (13.0-17.5) gm/dL Hct 23.9 L (39.0-53.0) % RDW 16.0 H (11.5-15.5) % Plt Count 136 L (150-450) k/uL Lymphocytes # 0.9 L (1.0-4.8) k/uL Sodium (137-145) mmol/L Potassium (3.5-5.1) mmol/L BUN (9-20) mg/dL Creatinine (0.66-1.25) mg/dL Glucose (74-99) mg/dL Calcium (8.4-10.2) mg/dL C-Reactive Protein (<1.0) mg/dL Procalcitonin (0.02-0.09) ng/mL Microbiology - Last 24 Hours (Table) 01/08/24 17:22 Blood Culture - Preliminary Blood 01/04/24 22:15 CSF Gram Stain - Final Cerebral Spinal Fluid CSF Culture - Final Assessment and Plan (1) Fever with leukocytosis and leukocyte count greater than or equal to 20,000 Current Visit: Yes Status: Acute Code(s): D72.829 - ELEVATED WHITE BLOOD CELL COUNT, UNSPECIFIED SNOMED Code(s): 735599651 (2) Positive blood culture Current Visit: No Status: Acute Code(s): R78.81 - BACTEREMIA SNOMED Code(s): 750420156 Plan: 1patient presented hospital with episode of unresponsiveness by the EMS patient did have features of sepsis running a fever did have elevated white count, initial workup including a chest x-ray and UA has been negative the patient abdominal was soft on clinical examination and there was no evidence of any cellulitis with a question of possible [employer] infection however the patient did have LP completed last night by ER physician and is negative 2-patient with a positive blood culture with coagulase-negative staph with concern for possible vs contamination possible pathogen monitor slowly as the patient did have a fever on admission to the hospital and some cellulitis of the left lower extremity 3-patient repeat blood cultures are so far pending the patient did have elevated procalcitonin, we will repeat a chest x-ray, continue with daptomycin Rocephin and monitor clinical course closely Dictation was produced using [employer] dictation software. please excuse any grammatical, word or spelling errors. Time with Patient: Less than 30
--- NOTE | 2024-01-10 12:03 | XR ---
EXAMINATION TYPE: XR chest 1V portable DATE OF EXAM: 01/10/2024 COMPARISON: 01/04/2024 HISTORY: Ammonia TECHNIQUE: Single frontal view of the chest is obtained. FINDINGS: Patchy right peripheral density favor atelectasis over pneumonia. Retrocardiac density fav or atelectasis over pneumonia. Mild thickening or tiny mild fluid within the minor fissure. Limited i nspiration. Heart size is stable with no overt failure. No sizable pneumothorax. Osseous structures i ntact. IMPRESSION: 1. Bilateral subsegmental areas of consolidation favor atelectasis over pneumonia.
[2024-01-10] MEDS: POTASSIUM CHLORIDE ER 20 MEQ TAB.ER PO STA (12:26)
--- NOTE | 2024-01-10 16:14 | P.PN ---
Subjective Patient is seen for follow-up for acute kidney injury. He was started on hemodialysis on 01/05/2024 for oliguric ATN and severe rhabdomyolysis. Urine output at about 25-30 cc an hour. Mentation continues to improve. Patient appears to be close to baseline. IV fluids decreased to 40 cc an hour. Objective - Vital Signs Vital signs: Vital Signs Temp 98.5 F 01/10/24 14:00 Pulse 64 01/10/24 14:00 Resp 16 01/10/24 14:00 BP 144/92 01/10/24 14:00 Pulse Ox 97 01/10/24 14:00 FiO2 Intake & Output 01/09/24 01/10/24 01/10/24 18:59 06:59 18:59 Intake Total 3115 480 320 Output Total 2278 245 200 Balance 837 235 120 Weight 103.1 kg 103.1 kg Intake: IV 815 480 320 Invasive Line 3 40 Sodium Chloride 0.9% 1, 200 480 320 000 ml @ 40 mls/hr IV . Q24H [facility] Rx#:[id number] Sodium Chloride 0.9% 1, 525 000 ml @ 75 mls/hr IV . [id number] [facility] Rx#:[id number] cefTRIAXone 2 gm In 50 Sodium Chloride 0.9% 50 ml @ 100 mls/hr IVPB Q12HR [facility] Rx#:[id number] Oral 1800 Hemodialysis 500 Output: Urine 275 245 200 Stool 3 Hemodialysis 2000 Other: Voiding Method Indwelling Catheter Indwelling Catheter Indwelling Catheter # Bowel Movements 0 0 - Exam Patient is sleeping but arousable Examination of the heart S1 and S2 Examination of the lungs bilateral breath sounds are heard Abdomen is soft nontender Examination of lower extremity shows no significant edema Patient is moving all 4 extremities. Answers simple questions appropriately - Labs CBC & Chem 7: 01/10/24 03:33 01/10/24 03:33 Labs: Abnormal Lab Results - Last 24 Hours (Table) 01/05/24 01/10/24 01/10/24 Range/Units 06:02 03:33 03:33 RBC (4.30-5.90) m/uL Hgb (13.0-17.5) gm/dL Hct (39.0-53.0) % RDW (11.5-15.5) % Plt Count (150-450) k/uL Lymphocytes # (1.0-4.8) k/uL Sodium 130 L (137-145) mmol/L Potassium 3.3 L (3.5-5.1) mmol/L BUN 40 H (9-20) mg/dL Creatinine 4.63 H (0.66-1.25) mg/dL Glucose 118 H (74-99) mg/dL Calcium 7.1 L (8.4-10.2) mg/dL C-Reactive Protein 4.5 H (<1.0) mg/dL Procalcitonin 51.60 H 1.46 H (0.02-0.09) ng/mL 01/10/24 Range/Units 03:33 RBC 2.87 L (4.30-5.90) m/uL Hgb 8.0 L (13.0-17.5) gm/dL Hct 23.9 L (39.0-53.0) % RDW 16.0 H (11.5-15.5) % Plt Count 136 L (150-450) k/uL Lymphocytes # 0.9 L (1.0-4.8) k/uL Sodium (137-145) mmol/L Potassium (3.5-5.1) mmol/L BUN (9-20) mg/dL Creatinine (0.66-1.25) mg/dL Glucose (74-99) mg/dL Calcium (8.4-10.2) mg/dL C-Reactive Protein (<1.0) mg/dL Procalcitonin (0.02-0.09) ng/mL Microbiology - Last 24 Hours (Table) 01/09/24 06:09 Blood Culture - Preliminary Blood 01/08/24 17:22 Blood Culture - Preliminary Blood Assessment and Plan Assessment: 1. Acute kidney injury secondary to ATN secondary to severe sepsis and rhabdomyolysis. Baseline creatinine 0.5-0.6 and up to 4.02 on 01/05/24 and started HD. Urine output is slightly improved.. No hydronephrosis noted on abdominal ultrasound. 2. Rhabdomyolysis secondary to fall/immobility. CK level greater than 160,000[place] [address] 3. Severe sepsis secondary to gram-positive bacteremia. On IV antibiotics. 4. Metabolic acidosis secondary to acute kidney injury. 5. Initially hypernatremia, now mildly hyponatremic at 133. 6. Hypocalcemia secondary to acute kidney injury and rhabdomyolysis. Improved. Avoid aggressive calcium replacement to avoid calcium phosphate precipitation in tissues. 7. Non-gap metabolic acidosis secondary to severe acute kidney injury and rhabdomyolysis t Plan: Hold hemodialysis today Continue saline to about 40 cc an hour Encourage increase oral intake particularly fluid. Repeat labs in a.m.
[2024-01-10] MEDS: carvediloL 3.125 MG TAB PO SCH (17:16)
--- NOTE | 2024-01-11 09:20 | P.PN ---
Subjective Progress Note Date: 01/11/24 The patient is a 38-year-old male who is admitted to the hospital with acute EtOH withdrawal and RSV infection. Patient was found to have rhabdomyolysis and acute renal failure. Cardiology was consulted for elevation of troponins, which is likely secondary to muscle skeletal injury and acute renal failure. Patient was interviewed and examined resting comfortably in bed. In no acute distress. He denies any pain or pressure. GENERAL: Well-appearing, well-nourished and in no acute distress. NECK: Supple without JVD or thyromegaly. LUNGS: Breath sounds clear to auscultation bilaterally. Respiration equal and unlabored. Bilateral rhonchi. HEART: Regular rate and rhythm without murmurs, rubs or gallops. S1 and S2 heard. EXTREMITIES: Normal range of motion, no edema. No clubbing or cyanosis. Per ipheral pulses intact and strong. TELEMETRY: Sinus bradycardia in the 50s IMPRESSION: EtOH withdrawal Metabolic encephalopathy Rhabdomyolysis Acute renal failure Borderline troponins, likely secondary to skeletal muscle injury and acute renal failure Acute RSV infection PLAN: Continue current cardiac medication regimen Continue supportive treatment and aggressive pulmonary hygiene Further recommendations to be based on clinical course I am dictating on behalf of Dr Sergio Perez's history/physical and assessment/plan. Objective - Vital Signs Vital signs: Vital Signs Temp 98.2 F 01/11/24 01:22 Pulse 59 L 01/11/24 01:22 Resp 16 01/11/24 01:22 BP 132/76 01/11/24 01:22 Pulse Ox 95 01/11/24 01:22 FiO2 Intake & Output 01/10/24 01/11/24 01/11/24 18:59 06:59 18:59 Intake Total 520 380 Output Total 320 350 Balance 200 30 Weight 103.1 kg 105 kg Intake: IV 520 40 Sodium Chloride 0.9% 1, 520 40 000 ml @ 40 mls/hr IV . Q24H [facility] [place] Rx#:[id number] Oral 340 Output: Urine 320 350 Other: Voiding Method Indwelling Catheter Indwelling Catheter - Labs CBC & Chem 7: 01/10/24 03:33 01/10/24 17:06 Labs: Microbiology - Last 24 Hours (Table) 01/08/24 17:22 Blood Culture - Preliminary Blood 01/09/24 06:09 Blood Culture - Preliminary Blood
--- NOTE | 2024-01-11 10:36 | P.PN ---
Subjective Progress Note Date: 01/11/24 Principal diagnosis: Urosepsis, rhabdomyolysis, renal failure. Acute metabolic encephalopathy, and acute alcohol withdrawal This is a 38-year-old white male with history of multiple medical problems including alcoholism, hepatitis C, hypertension, GERD, patient was brought into the ER yesterday after he was noted to be face down in the snow, upon EMS arrival, the patient was hypothermic, and altered mental status. In the ER, the patient was noted to have temp of 102.6, he was tachycardic, and was not hypotensive or hypoxic. Workup in the ER included CBC which showed le ukocytosis. His bicarb was noted to be low, patient was noted to have anion gap metabolic acidosis, he was also noted to have renal failure with a BUN of 51 creatinine 3.45. His CPK was significantly elevated almost 92,000, troponin elevated at 1.6, and liver enzymes were also elevated including AST and ALT. There was evidence of blood in the urine. No drug screen was done at the time of arrival, but his alcohol level was less than 10. His RSV PCR was positive. Drug screen in the ICU was positive for barbiturates, amphetamine, methamphetamine, and benzodiazepines. Patient was seen by many consultants including infectious disease, patient was started empirically on antibiotics in the form of Rocephin and vancomycin, and infectious disease recommended a lumbar puncture on this patient. Initial chemistry on the spinal fluid seems to be unremarkable. Final report is pending. His blood cultures today are positive for gram-positive cocci in clusters. Patient was seen by nephrology today, and recommending starting the patient on hemodialysis. Patient was felt to have acute kidney injury secondary to ATN, and severe sepsis and rhabdomyolysis, oliguric, unresponsive to diuretics, and there was no hydronephrosis on the abdominal ultrasound. At any rate patient is scheduled to have a dialysis catheter placement today. Last night the patient was on the regular medical floor, I was made aware of this patient because his CIWA score was 20,, patient was already on a bicarb drip, and I have recommended transferring the patient out of the floor to the ICU saw this patient this morning, reviewed all his labs and workup, remains on bicarb drip, empirically on antibiotics for his presumptive severe sepsis and bacteremia as noted on blood cultures today, patient continues to have significantly elevated CPK, continues to have worsening renal failure. Blood pressure was high and I recommended Cleviprex at 2 mg/h. Also recommended a drug screen to be done. Patient did not require Precedex, he is agitation is well-controlled with Ativan. According to the patient his last alcohol drink was 2 days ago. Patient is not a great historian, seems to mumble but does not give adequate history. And he is by all means encephalopathic. But able to protect his airways, and able to cough and clear secretions. Hence did not feel the need to intubate this patient at this point. Procalcitonin level this morning is 45.9 Patient was reevaluated today on 01/06/2024, his blood cultures are actually now coagulase-negative staph, most likely blood cultures are contaminated. Patient is still restless and agitated easily, remains in the ICU, he will be undergoing dialysis today, he had dialysis yesterday. Complaining of hurting all over, patient remains a bit confused, and lethargic. His creatinine is high at 4.3, hemoglobin is down from 16.3 on admission now 10.3, platelets are coming down, hence I am stopping his heparin. CPK remains high at 158,000, patient is still receiving fluids at 200 cc/h, and he will have more dialysis today. Patient is extremely oliguric. Liver enzymes are also elevated with a AST of 2498, and ALT 573, improving compared to yesterday Patient was reevaluated today on 01/07/2024, remains in the ICU, marginal at best. On 3 L nasal cannula, remains a bit encephalopathic with a slight improvement in his overall mental status patient knows that he is at [facility], he realized the year is 2023. Patient continues to have marginal urine output, he is oliguric, intermittently on hemodialysis, patient remains on daptomycin and ceftriaxone, blood cultures were contaminated with staph/coagulase negative. Spinal fluid cultures have been negative CPK is coming down today, he is down to 89,000 from 159,000 yesterday. Renal functioning is about the same with a creatinine 4.60 and BUN of 49, Liver enzymes are steadily improving. And ammonia level is less than 90. His IV fluid remains at 200 cc/h patient is receiving MVI. Progress note dated January 08, 2024. 38-year-old male who was admitted to the hospital on 04 January. The patient came to the intensive care unit on the . Currently, the patient is seen today in room 255. The patient is on room air. He is getting saline at 130 cc an hour. He continues on dexmedetomidine at 0.4 mcg/kg/h. The patient has had hemodialysis, twice, but is planning to have hemodialysis again today. Will add some Haldol, Seroquel, and clonidine patch to his regimen, to get him off the dexmedetomidine. Current labs include white count 8.7, hemoglobin 9.3, hem atocrit 27.8, and platelet count 108,000. Sodium 131, potassium 4.7, chlorides 105, CO2 14, anion gap 12, BUN 66, creatinine 6.25. AST is 1516. ALT is 546. CK is down from 89,000, to 73,807. Blood cultures are positive for coag negative staph. No chest x-ray to report on. Progress note dated January 09, 2024. 38-year-old male who was admitted to the hospital on January 04. The patient c emredith to the intensive care unit, on the . Currently, the patient is seen today in room 255. The patient continues on room air. The patient is getting saline at 75 cc an hour. He will have another hemodialysis session today, which is #4. Yesterday, he had hemodialysis, and 2 L was removed. He is currently off the dexmedetomidine. White count 7.4, hemoglobin 7.8, hematocrit 22.8, platelet count 124,000. Sodium 130, potassium 3.6, chlorides 103, CO2 22, BUN 59, creatinine 5.67. His calcium is 7.0. Blood cultures were positive for coag negative staph. Progress note dated January 10, 2024. 38-year-old male again seen today in room 255, the intensive care unit. Currently, the patient is on room air. He is getting saline at 40 cc an hour. According to his nurse, he had an uneventful night. In our opinion, the patient is stable to be transferred out of the intensive care unit. Current labs include a white count of 6.7, hemoglobin 8, hematocrit 23.9, and a platelet count of 136,000. Sodium 130, potassium 3.3, chlorides 103, CO2 26, BUN 40, creatinine 4.63. His CK is down to 36,783. Procalcitonin level is 1.46. Progress note dated January 11, 2024. 38-year-old male seen again in room 255. The patient is currently doing better. The patient is on room air. He is getting saline at 40 cc an hour. According to his nurse, the patient had an uneventful night. The patient is calm, and not agitated. No new labs today. Chest x-ray suggest some bilateral subsegmental atelectasis. Objective - Vital Signs Vital signs: Vital Signs Temp 98.6 F 01/11/24 08:00 Pulse 67 01/11/24 08:00 Resp 16 01/11/24 08:00 BP 151/97 01/11/24 08:00 Pulse Ox 96 01/11/24 08:00 FiO2 Intake & Output 01/10/24 01/11/24 01/11/24 18:59 06:59 18:59 Intake Total 520 380 270 Output Total 320 350 Balance 200 30 270 Weight 103.1 kg 105 kg Intake: IV 520 40 10 Invasive Line 3 10 Sodium Chloride 0.9% 1, 520 40 000 ml @ 40 mls/hr IV . Q24H [facility] Rx#:[id number] Oral 340 260 Output: Urine 320 350 Other: Voiding Method Indwelling Catheter Indwelling Catheter Indwelling Catheter - Exam No acute distress, currently on room air. The patient is very calm. HEENT examination is grossly unremarkable. Mucous membranes are moist. No oral lesions. Neck supple. Full range of motion. No adenopathy thyromegaly or neck vein distention. Cardiovascular examination reveals regular rhythm rate. S1-S2 normal. No S3 or S4. No discernible murmur noted. Heart rate 67 bpm. Lungs reveal mild scattered rhonchi. No wheezes or crackles. Breath sounds equal bilaterally. Saturations are 96 % on room air. Abdomen soft bowel sounds are heard. No masses or tenderness. Extremities are intact. No cyanosis clubbing or edema. Skin is without rash or lesion. Neurologic examination is improved. The patient is verbal. Much more oriented. - Labs CBC & Chem 7: 01/10/24 03:33 01/10/24 17:06 Labs: Microbiology - Last 24 Hours (Table) 01/08/24 17:22 Blood Culture - Preliminary Blood 01/09/24 06:09 Blood Culture - Preliminary Blood Assessment and Plan Assessment: Acute alcohol withdrawal syndrome. Acute metabolic encephalopathy, improved. Possible bacteremia secondary to coagulase-negative staphylococci. Hypothermia, resolved. Acute transaminitis. Acute RSV infection. Acute kidney injury secondary to rhabdomyolysis, currently on hemodialysis. History of alcoholism. History of hepatitis C. History of gastroesophageal reflux disease. History of IV drug abuse. History of pancreatitis. History of bipolar disorder and depression. Plan: Plan dated January 08, 2024. The patient is seen today in the intensive care unit, room 255. The patient is currently on Ativan, for his alcohol withdrawal syndrome. He continues on dexmedetomidine, 0.4 mcg/kg/h. We will attempt to wean that off, by adding Haldol, Seroquel, and a clonidine patch. The patient has been in the intensive care unit since January 05. Today's hemodialysis session will be his third. Labs, x-rays, and medications are reviewed. The patient's mental status, is difficult to assess because of the dexmedetomidine. He continues on GI and DVT prophylaxis. He continues on Rocephin, and daptomycin, as per infectious diseases. He also continues on Decadron, for his swollen tongue. Additional recommendations and suggestions are forthcoming. Updrafts can be discontinued. Plan dated January 17, 2024. The patient was seen today in room 255. He is on room air. He is getting saline at 75 cc an hour. The patient will have hemodialysis today. Today's session #4. The patient was able to be weaned off of dexmedetomidine. We added some Haldol, some pain medication, and Seroquel. Labs, x-rays, and medications are reviewed. The patient continues on Rocephin, as per infectious diseases. We will continue to follow make recommendations along the way. The patient's overall prognosis remains guarded. No additional recommendations are made at this time. Plan dated January 10, 2024. The patient is seen today in room 255. He is on room air. The patient is receiving saline at 40 cc an hour. The patient has been seen by nephrology. Clinically, the patient is doing much better. He is much more awake and alert. Labs, x-rays, and medications are reviewed. The patient is stable for transfer out of the intensive care unit. The patient's Decadron is discontinued. He continues on Ativan, Seroquel, Haldol as needed, and other appropriate medications. We will continue to follow make recommendations along the way. Prognosis is guarded. Plan dated January 11, 2024. The patient is stable to leave the intensive care unit. The patient is currently on room air. He is getting saline at 40 cc an hour. Patient continues on appropriate medications, including Ativan, Haldol, and Seroquel. Additional recommendations and suggestions are forthcoming. The patient is currently on Rocephin and daptomycin per infectious diseases, but in my opinion, these antibiotics can be de-escalated. I have asked the nurse to call the infectious disease doctor, to see if we can make some changes. The patient had an uneventful night. The patient could be transferred out of the intensive care unit. We will continue to follow make recommendations along the way. Prognosis is guarded. Time with Patient: Less than 30
[2024-01-11 12:34] LABS: Anisocytosis Slight; Basophils % (A) 0 %; Eosinophils # (A) 0.2 k/uL (0-0.7); Eosinophils % (A) 3 %; HCT 27.7 % (39.0-53.0); HGB 9.2 gm/dL (13.0-17.5); Lymphocytes % (A) 17 %; MCH 28.1 pg (25.0-35.0); MCHC 33.4 g/dL (31.0-37.0); MCV 84.2 fL (80.0-100.0); Mean Platelet Volume 9.9; Monocytes # (A) 0.4 k/uL (0-1.0); Monocytes % (A) 7 %; Neutrophils # (A) 4.2 k/uL (1.3-7.7); Neutrophils % (A) 71 %; Platelet Count 154 k/uL (150-450); RBC 3.28 m/uL (4.30-5.90); RDW 16.3 % (11.5-15.5); WBC 5.9 k/uL (3.8-10.6)
[2024-01-11 12:48] LABS: African American GFR (CKD) 12 (>60 ml/min/1.73 sqM); Anion Gap 7 mmol/L; Blood Urea Nitrogen 53 mg/dL (9-20); Calcium 7.6 mg/dL (8.4-10.2); Carbon Dioxide 23 mmol/L (22-30); Chloride 103 mmol/L (98-107); Glucose 86 mg/dL (74-99); Magnesium 1.6 mg/dL (1.6-2.3); Non-African American GFR(CKD) 10 (>60 ml/min/1.73 sqM); Potassium 3.3 mmol/L (3.5-5.1); Sodium 133 mmol/L (137-145)
--- NOTE | 2024-01-11 13:26 | P.PN ---
Subjective Patient is seen for follow-up for acute kidney injury. He was started on hemodialysis on 01/05/2024 for oliguric ATN and severe rhabdomyolysis. Urine output has improved. Last dialysis was on 03/09/2024. Mentation has improved. Patient is currently pacing in the room. Labs are pending from today. Objective - Vital Signs Vital signs: Vital Signs Temp 98.6 F 01/11/24 08:00 Pulse 67 01/11/24 08:00 Resp 16 01/11/24 08:00 BP 151/97 01/11/24 08:00 Pulse Ox 96 01/11/24 08:00 FiO2 Intake & Output 01/10/24 01/11/24 01/11/24 18:59 06:59 18:59 Intake Total 520 380 870 Output Total 320 350 Balance 200 30 870 Weight 103.1 kg 105 kg Intake: IV 520 40 10 Invasive Line 3 10 Sodium Chloride 0.9% 1, 520 40 000 ml @ 40 mls/hr IV . Q24H [facility] Rx#:[id number] Oral 340 860 Output: Urine 320 350 Other: Voiding Method Indwelling Catheter Indwelling Catheter Indwelling Catheter - Exam Patient is sleeping but arousable Examination of the heart S1 and S2 Examination of the lungs bilateral breath sounds are heard Abdomen is soft nontender Examination of lower extremity shows no significant edema Patient is moving all 4 extremities. Answers simple questions appropriately - Labs CBC & Chem 7: 01/11/24 11:28 01/11/24 11:28 Labs: Abnormal Lab Results - Last 24 Hours (Table) 01/11/24 01/11/24 Range/Units 11:28 11:28 RBC 3.28 L (4.30-5.90) m/uL Hgb 9.2 L (13.0-17.5) gm/dL Hct 27.7 L (39.0-53.0) % RDW 16.3 H (11.5-15.5) % Sodium 133 L (137-145) mmol/L Potassium 3.3 L (3.5-5.1) mmol/L BUN 53 H (9-20) mg/dL Creatinine 6.39 H (0.66-1.25) mg/dL Calcium 7.6 L (8.4-10.2) mg/dL Microbiology - Last 24 Hours (Table) 01/09/24 06:09 Blood Culture - Preliminary Blood 01/08/24 17:22 Blood Culture - Preliminary Blood Assessment and Plan Assessment: 1. Acute kidney injury secondary to ATN secondary to severe sepsis and rhabdomyolysis. Baseline creatinine 0.5-0.6 and up to 4.02 on 01/05/24 and started HD. Urine output is slightly improved.. No hydronephrosis noted on abdominal ultrasound. 2. Rhabdomyolysis secondary to fall/immobility. CK level greater than 160,000[place] [id number] 3. Severe sepsis secondary to gram-positive bacteremia. On IV antibiotics. 4. Metabolic acidosis secondary to acute kidney injury. 5. Initially hypernatremia, now mildly hyponatremic at 133. 6. Hypocalcemia secondary to acute kidney injury and rhabdomyolysis. Improved. Avoid aggressive calcium replacement to avoid calcium phosphate precipitation in tissues. 7. Non-gap metabolic acidosis secondary to severe acute kidney injury and rhabdomyolysis t Plan: Hold hemodialysis today. Reevaluate for need for hemodialysis tomorrow Continue saline to about 40 cc an hour Encourage increase oral intake particularly fluid. Repeat labs in a.m.
[2024-01-11] MEDS: POTASSIUM CHLORIDE ER 10 MEQ TAB.ER.PRT PO STA (14:36)
[2024-01-11] MEDS: buPROPion XL 150 MG TAB.ER.24H PO SCH (14:47)
--- NOTE | 2024-01-11 15:22 | P.PN ---
Subjective Progress Note Date: 01/11/24 Principal diagnosis: Reason for follow-up is fever and a positive blood culture Patient is a 38-year-old male with a past medical history of GERD for hypertension hepatitis C pancreatitis reflux history of alcoholism patient was brought into the ER by EMS after apparently the patient was noticed to be facedown in the snow when the EMS got him up he was unable to speak patient was hypothermic and subsequently brought into the ER for further evaluation, on arrival to the ER the patient did have a fever did have elevated white count chest x-ray UA was negative abdominal soft LP was done last night which came back negative as well. On today's evaluation that is 01/11/2024,the patient is slightly more awake alert today denies any fever or any chills, patient is breathing comfortably on room air, the patient has been complaining of pain all over denies any nausea no vomiting no abdominal pain no diarrhea has been reported. Patient white count is 5.9, creatinine 6.3 9 repeat blood culture negative Objective - Vital Signs Vital signs: Vital Signs Temp 98.6 F 01/11/24 08:00 Pulse 67 01/11/24 08:00 Resp 16 01/11/24 08:00 BP 151/97 01/11/24 08:00 Pulse Ox 96 01/11/24 08:00 FiO2 Intake & Output 01/10/24 01/11/24 01/11/24 18:59 06:59 18:59 Intake Total 520 380 270 Output Total 320 350 Balance 200 30 270 Weight 103.1 kg 105 kg Intake: IV 520 40 10 Invasive Line 3 10 Sodium Chloride 0.9% 1, 520 40 000 ml @ 40 mls/hr IV . Q24H [facility] Rx#:[id number] Oral 340 260 Output: Urine 320 350 Other: Voiding Method Indwelling Catheter Indwelling Catheter Indwelling Catheter - Exam GENERAL DESCRIPTION: Middle-age male lying in bed in no distress RESPIRATORY SYSTEM: Unlabored breathing , decreased breath sounds at bases HEART: S1 S2 regular rate and rhythm , ABDOMEN: Soft , no tenderness EXTREMITIES: No edema feet - Labs CBC & Chem 7: 01/11/24 11:28 01/11/24 11:28 Labs: Microbiology - Last 24 Hours (Table) 01/08/24 17:22 Blood Culture - Preliminary Blood 01/09/24 06:09 Blood Culture - Preliminary Blood Assessment and Plan (1) Fever with leukocytosis and leukocyte count greater than or equal to 20,000 Current Visit: Yes Status: Acute Code(s): D72.829 - ELEVATED WHITE BLOOD CELL COUNT, UNSPECIFIED SNOMED Code(s): 625417287 (2) Positive blood culture Current Visit: No Status: Acute Code(s): R78.81 - BACTEREMIA SNOMED Code(s): 276250321 Plan: 1patient presented hospital with episode of unresponsiveness by the EMS patient did have features of sepsis running a fever did have elevated white count, initial workup including a chest x-ray and UA has been negative the patient abdominal was soft on clinical examination and there was no evidence of any cellulitis with a question of possible [employer] infection however the patient did have LP completed last night by ER physician and is negative 2-patient with a positive blood culture with coagulase-negative staph with concern for possible vs contamination possible pathogen monitor slowly as the patient did have a fever on admission to the hospital and some cellulitis of the left lower extremity, repeat blood culture has been negative we will discontinue daptomycin 3-patient did have elevated procalcitonin, repeat chest x-ray with mild lateral subsegmental areas of consolidation, patient to continue with Rocephin and monitor clinical course closely Dictation was produced using [employer] dictation software. please excuse any grammatical, word or spelling errors. Time with Patient: Less than 30
[2024-01-12] MEDS: IBUPROFEN 600 MG TAB PO PRN (03:10)
--- NOTE | 2024-01-12 09:55 | P.PN ---
Subjective Progress Note Date: 01/10/24 patient is a 38-year-old gentleman past medical significant for alcohol abuse, liver disease who presented to the ER for altered mental status. Patient has a history of alcohol abuse and has multiple admissions to this hospital for alcohol detox. Patient was brought in the ED by EMS after being found lying facedown in snow. There was no obvious sign of any trauma. Patient was unable to respond to any questions. EMS brought him immediately to the ER Initial lab work done in the ER showed WBC 22, hemoglobin 16.4, platelet count 274, sodium 152, potassium 5.1, BUN 38, creatinine 3.47, glucose 105, bilirubin 0.7, AST 1723, ALT 399, troponin 2.39 EKG done in the ER showed heart rate of 125, no ST segment elevation or depression seen, no T-wave inversions seen. Chest x-ray done in the ER showed no acute cardiopulmonary process CT head done showed no acute intracranial process CT cervical spine negative for any acute fracture or dislocation Patient admitted to internal medicine service. On my interview with patient, patient was much more responsive, kept on asking about getting soda and water. Stated that he has been laying on the ground for more than 15 hours. Patient is currently running a fever. Denies any chest pain or shortness of breath. Complaining of generalized body aches 01/05. Patient seen and examined. Blood work done this morning showed WBC 10.5, hemoglobin 9.8, platelet count 137, sodium 132, potassium 3.8, BUN 60, creatinine 4.02, calcium 6, CK greater than 148775. 2D echo done showed LVEF of 50 to 55%, no mitral regurg, trace tricuspid regurg 01/06. Patient seen and examined. Currently in restraints. Currently getting dialysis. Complaining of pain in his tongue, apparently bit his tongue during the fall. 01/07. Patient seen and examined. Continues to be in ICU. Currently on Precedex and IV fluids. Patient currently off restraints, is alert to self. 01/08. Patient seen and examined.Blood work done this morning showed WBC 8.7, hemoglobin 9.3, sodium 137, potassium 4.7, BUN 66, creatinine 6.25, AST is 1516, ALT is 546, currently on 2 L of oxygen. Patient is alert, answering questions, currently on Precedex drip. 01/09/2024 Patient is in MICU. Currently lying in the bed. Awake and alert but lethargic and drowsy. Currently on room air. Tolerating oral diet. Laboratory data showed WBC 7.4 hemoglobin 7.8 and platelets 124, sodium 1:30 potassium 3.6 chloride 103 bicarb is 22 BUN 59 and creatinine 5.67 01/10/2024 Patient is in the MICU. Awake alert and oriented. Seems to be more awake today. On room air. No complaints of chest pain or shortness breath. Patient does have good oral input. No fever no chills. Laboratory data showed WBC 6.7 hemoglobin 8.0 and platelets 136, sodium 1:30 potassium 3.3 chloride 103 bicarb is 26 BUN 40 and creatinine trending down to 4.63 today. Calcium 7.1 and pro calcitonin was 1.46. Patient is on antibiotics ceftriaxone. ID, nephrology and pulmonary is on board. REVIEW OF SYSTEMS: Denies any chest pain. Denies any shortness of breath No complaint of nausea, vomiting or abdominal pain PHYSICAL EXAMINATION: GENERAL: The patient is alert to self, not in any acute distress. Ill looking HEENT: Pupils are round and equally reacting to light. EOMI. No scleral icterus. No conjunctival pallor. Normocephalic, atraumatic. No pharyngeal erythema. No thyromegaly. Tongue swollen secondary to the bite CARDIOVASCULAR: S1 and S2 present. No murmurs, rubs, or gallops. Tachycardic PULMONARY: Coarse breath sound bilaterally, no wheezing or crackles. ABDOMEN: Soft, nontender, nondistended, normoactive bowel sounds. No palpable organomegaly. MUSCULOSKELETAL: No joint swelling or deformity. EXTREMITIES: No cyanosis, clubbing, or pedal edema. NEUROLOGICAL: Gross neurological examination did not reveal any focal deficits. SKIN: No rashes. Assessment and plan Acute metabolic encephalopathy. Improving. Acute kidney injury secondary to ATN due to infection and rhabdomyolysis. re quiring hemodialysis. Started on 01/05/2024. Gram-positive Bacteremia. Coagulase-negative staph. Repeat blood cultures negative. Sepsis Acute Rhabdomyolysis secondary to fall Hypothermia Hypernatremia. Resolved. Hypocalcemia secondary to acute kidney injury and rhabdomyolysis. Leukocytosis Elevated troponin level. Ratio of CPK and troponin suggest skeletal muscle injury pattern in the sitting up acute right. Acute transaminitis Fall History of alcohol abuse Acute alcohol withdrawal symptoms History of depression Monitor vital signs Monitor CBC Monitor CMP Continue telemetry monitoring Trend troponin. Follow-up on blood cultures 2D echo done showed LVEF of 50 to 55%, no mitral regurg, trace tricuspid regurg Avoid nephrotoxic agent Avoid hepatotoxic agents Strict I's and O's, daily weights Continue IV fluids Continue IV Rocephin . DC'd daptomycin patient is status post LP with CSF culture negative. Continue CIWA protocol continue high-dose thiamine and folic acid Continue dialysis per nephrology ID following Cardiology following Critical care following Labs and medication were reviewed.. Continue with symptomatic treatment. Resume home medication. Monitor labs and vitals. DVT and GI prophylaxis. Dictation was produced using [employer] dictation software. please excuse any grammatical, word or spelling errors. Objective - Vital Signs Vital signs: Vital Signs Temp 98.5 F 01/10/24 14:00 Pulse 64 01/10/24 14:00 Resp 16 01/10/24 14:00 BP 144/92 01/10/24 14:00 Pulse Ox 97 01/10/24 14:00 FiO2 Intake & Output 01/10/24 01/10/24 01/11/24 06:59 18:59 06:59 Intake Total 480 520 Output Total 245 320 Balance 235 200 Weight 103.1 kg 103.1 kg Intake: IV 480 520 Sodium Chloride 0.9% 1, 480 520 000 ml @ 40 mls/hr IV . Q24H [facility] Rx#:[id number] Output: Urine 245 320 Other: Voiding Method Indwelling Catheter Indwelling Catheter # Bowel Movements 0 - Labs CBC & Chem 7: 01/11/24 11:28 01/11/24 11:28 Labs: Abnormal Lab Results - Last 24 Hours (Table) 01/10/24 01/10/24 01/10/24 Range/Units 03:33 03:33 03:33 RBC 2.87 L (4.30-5.90) m/uL Hgb 8.0 L (13.0-17.5) gm/dL Hct 23.9 L (39.0-53.0) % RDW 16.0 H (11.5-15.5) % Plt Count 136 L (150-450) k/uL Lymphocytes # 0.9 L (1.0-4.8) k/uL Sodium 130 L (137-145) mmol/L Potassium 3.3 L (3.5-5.1) mmol/L BUN 40 H (9-20) mg/dL Creatinine 4.63 H (0.66-1.25) mg/dL Glucose 118 H (74-99) mg/dL Calcium 7.1 L (8.4-10.2) mg/dL C-Reactive Protein 4.5 H (<1.0) mg/dL Procalcitonin 1.46 H (0.02-0.09) ng/mL Microbiology - Last 24 Hours (Table) 01/09/24 06:09 Blood Culture - Preliminary Blood 01/08/24 17:22 Blood Culture - Preliminary Blood
--- NOTE | 2024-01-12 09:55 | P.PN ---
Subjective Progress Note Date: 01/11/24 patient is a 38-year-old gentleman past medical significant for alcohol abuse, liver disease who presented to the ER for altered mental status. Patient has a history of alcohol abuse and has multiple admissions to this hospital for alcohol detox. Patient was brought in the ED by EMS after being found lying facedown in snow. There was no obvious sign of any trauma. Patient was unable to respond to any questions. EMS brought him immediately to the ER Initial lab work done in the ER showed WBC 22, hemoglobin 16.4, platelet count 274, sodium 152, potassium 5.1, BUN 38, creatinine 3.47, glucose 105, bilirubin 0.7, AST 1723, ALT 399, troponin 2.39 EKG done in the ER showed heart rate of 125, no ST segment elevation or depression seen, no T-wave inversions seen. Chest x-ray done in the ER showed no acute cardiopulmonary process CT head done showed no acute intracranial process CT cervical spine negative for any acute fracture or dislocation Patient admitted to internal medicine service. On my interview with patient, patient was much more responsive, kept on asking about getting soda and water. Stated that he has been laying on the ground for more than 15 hours. Patient is currently running a fever. Denies any chest pain or shortness of breath. Complaining of generalized body aches 01/05. Patient seen and examined. Blood work done this morning showed WBC 10.5, hemoglobin 9.8, platelet count 137, sodium 132, potassium 3.8, BUN 60, creatinine 4.02, calcium 6, CK greater than [id number]. 2D echo done showed LVEF of 50 to 55%, no mitral regurg, trace tricuspid regurg 01/06. Patient seen and examined. Currently in restraints. Currently getting dialysis. Complaining of pain in his tongue, apparently bit his tongue during the fall. 01/07. Patient seen and examined. Continues to be in ICU. Currently on Precedex and IV fluids. Patient currently off restraints, is alert to self. 01/08. Patient seen and examined.Blood work done this morning showed WBC 8.7, hemoglobin 9.3, sodium 137, potassium 4.7, BUN 66, creatinine 6.25, AST is 1516, ALT is 546, currently on 2 L of oxygen. Patient is alert, answering questions, currently on Precedex drip. 01/09/2024 Patient is in MICU. Currently lying in the bed. Awake and alert but lethargic and drowsy. Currently on room air. Tolerating oral diet. Laboratory data showed WBC 7.4 hemoglobin 7.8 and platelets 124, sodium 1:30 potassium 3.6 chloride 103 bicarb is 22 BUN 59 and creatinine 5.67 01/10/2024 Patient is in the MICU. Awake alert and oriented. Seems to be more awake today. On room air. No complaints of chest pain or shortness breath. Patient does have good oral input. No fever no chills. Laboratory data showed WBC 6.7 hemoglobin 8.0 and platelets 136, sodium 1:30 potassium 3.3 chloride 103 bicarb is 26 BUN 40 and creatinine trending down to 4.63 today. Calcium 7.1 and pro calcitonin was 1.46. Patient is on antibiotics ceftriaxone. ID, nephrology and pulmonary is on board. 01/11/2024 Patient is resting in the bed. On room air. Able to ambulate in the room. Patient is being transferred to ICU. Urine output has been improving. Last hemodialysis on 01/09/2024. Patient has been afebrile. Repeat blood cultures negative. Laboratory data showed no illicit 5.9 hemoglobin 9.2 and platelets 154 sodium 133 potassium 2.3 and chloride 103 and bicarb 23 BUN 53 and creatinine 6.39. Patient is on normal saline at 40 mL per hour. On antibiotics ceftriaxone. REVIEW OF SYSTEMS: Denies any chest pain. Denies any shortness of breath No complaint of nausea, vomiting or abdominal pain PHYSICAL EXAMINATION: GENERAL: The patient is alert to self, not in any acute distress. Ill looking HEENT: Pupils are round and equally reacting to light. EOMI. No scleral icterus. No conjunctival pallor. Normocephalic, atraumatic. No pharyngeal erythema. No thyromegaly. Tongue swollen secondary to the bite CARDIOVASCULAR: S1 and S2 present. No murmurs, rubs, or gallops. Tachycardic PULMONARY: Coarse breath sound bilaterally, no wheezing or crackles. ABDOMEN: Soft, nontender, nondistended, normoactive bowel sounds. No palpable organomegaly. MUSCULOSKELETAL: No joint swelling or deformity. EXTREMITIES: No cyanosis, clubbing, or pedal edema. NEUROLOGICAL: Gross neurological examination did not reveal any focal deficits. SKIN: No rashes. Assessment and plan Acute metabolic encephalopathy. Improving. Acute kidney injury secondary to ATN due to infection and rhabdomyolysis. requiring hemodialysis. Started on 01/05/2024. Patient had last hemodialysis on 01/09/2024 Gram-positive Bacteremia. Coagulase-negative staph. Repeat blood cultures negative. Sepsis Acute Rhabdomyolysis secondary to fall Hypothermia Hypernatremia. Resolved. Hypocalcemia secondary to acute kidney injury and rhabdomyolysis. Leukocytosis Elevated troponin level. Ratio of CPK and troponin suggest skeletal muscle injury pattern in the sitting up acute right. Acute transaminitis Fall History of alcohol abuse Acute alcohol withdrawal symptoms History of depression Monitor vital signs Monitor CBC Monitor CMP Continue telemetry monitoring Trend troponin. Follow-up on blood cultures 2D echo done showed LVEF of 50 to 55%, no mitral regurg, trace tricuspid regurg Avoid nephrotoxic agent Avoid hepatotoxic agents Strict I's and O's, daily weights Continue IV fluids Continue IV Rocephin . DC'd daptomycin patient is status post LP with CSF culture negative. Continue CIWA protocol continue high-dose thiamine and folic acid Continue dialysis per nephrology ID following Cardiology following Critical care following Labs and medication were reviewed.. Continue with symptomatic treatment. Resume home medication. Monitor labs and vitals. DVT and GI prophylaxis. Dictation was produced using [employer] dictation software. please excuse any grammatical, word or spelling errors. Objective - Vital Signs Vital signs: Vital Signs Temp 98.2 F 01/11/24 14:00 Pulse 54 L 01/11/24 14:00 Resp 16 01/11/24 14:00 BP 124/62 01/11/24 14:00 Pulse Ox 95 01/11/24 14:00 FiO2 Intake & Output 01/11/24 01/11/24 01/12/24 06:59 18:59 06:59 Intake Total 380 910 Output Total 350 250 Balance 30 660 Weight 105 kg Intake: IV 40 50 Invasive Line 3 10 Sodium Chloride 0.9% 1, 40 40 000 ml @ 40 mls/hr IV . Q24H [facility] Rx#:[id number] Oral 340 860 Output: Urine 350 250 Other: Voiding Method Indwelling Catheter Indwelling Catheter - Labs CBC & Chem 7: 01/11/24 11:28 01/11/24 11:28 Labs: Abnormal Lab Results - Last 24 Hours (Table) 01/11/24 01/11/24 Range/Units 11:28 11:28 RBC 3.28 L (4.30-5.90) m/uL Hgb 9.2 L (13.0-17.5) gm/dL Hct 27.7 L (39.0-53.0) % RDW 16.3 H (11.5-15.5) % Sodium 133 L (137-145) mmol/L Potassium 3.3 L (3.5-5.1) mmol/L BUN 53 H (9-20) mg/dL Creatinine 6.39 H (0.66-1.25) mg/dL Calcium 7.6 L (8.4-10.2) mg/dL Microbiology - Last 24 Hours (Table) 01/09/24 06:09 Blood Culture - Preliminary Blood 01/08/24 17:22 Blood Culture - Preliminary Blood
--- NOTE | 2024-01-12 10:16 | P.PN ---
Subjective Progress Note Date: 01/12/24 The patient is a 38-year-old male who is admitted to the hospital with acute EtOH withdrawal and RSV infection. Patient was found to have rhabdomyolysis and acute renal failure started on hemodialysis. Cardiology was consulted for elevation of troponins, which is likely secondary to muscle skeletal injury and acute renal failure. Patient has been transferred to the [facility] floor. Heart rate is in the 70s, blood pressure 103/61-155/83. Blood work yesterday revealed worsening of the BUN and creatinine to 53 and 6.39. Hemoglobin at 9.2. Patient is followed by nephrology and scheduled for hemodialysis today. Patient denies having any chest pain, shortness of breath, lightheadedness or dizziness. GENERAL: Well-appearing, well-nourished and in no acute distress. NECK: Supple without JVD or thyromegaly. LUNGS: Breath sounds clear to auscultation bilaterally. Respiration equal and unlabored. Bilateral rhonchi. HEART: Regular rate and rhythm without murmurs, rubs or gallops. S1 and S2 heard . EXTREMITIES: Normal range of motion, no edema. No clubbing or cyanosis. Peripheral pulses intact and strong. IMPRESSION: EtOH withdrawal Metabolic encephalopathy Rhabdomyolysis Acute renal failure Borderline troponins, likely secondary to skeletal muscle injury and acute renal failure Acute RSV infection PLAN: Continue current cardiac medication regimen Continue supportive treatment and aggressive pulmonary hygiene Cardiology will sign off this case and follow on an as-needed basis. Please reconsult for any new concerns. Impression and plan of care have been directed as dictated by the signing physician. Marilia Shipley nurse practitioner acting as scribe for signing physician. Objective - Vital Signs Vital signs: Vital Signs Temp 98.4 F 01/12/24 07:04 Pulse 70 01/12/24 07:04 Resp 17 01/12/24 07:04 BP 103/61 01/12/24 07:04 Pulse Ox 100 01/12/24 07:04 FiO2 Intake & Output 01/11/24 01/12/24 01/12/24 18:59 06:59 18:59 Intake Total 870 680 Output Total 250 950 Balance 620 -270 Weight 98 kg Intake: IV 10 530 Invasive Line 3 10 10 Sodium Chloride 0.9% 1, 520 000 ml @ 40 mls/hr IV . Q24H [facility] Rx#:[id number] Oral 860 150 Output: Urine 250 950 Other: Voiding Method Indwelling Catheter Indwelling Catheter # Voids 1 # Bowel Movements 1 - Labs CBC & Chem 7: 01/11/24 11:28 01/11/24 11:28 Labs: Abnormal Lab Results - Last 24 Hours (Table) 01/11/24 01/11/24 Range/Units 11:28 11:28 RBC 3.28 L (4.30-5.90) m/uL Hgb 9.2 L (13.0-17.5) gm/dL Hct 27.7 L (39.0-53.0) % RDW 16.3 H (11.5-15.5) % Sodium 133 L (137-145) mmol/L Potassium 3.3 L (3.5-5.1) mmol/L BUN 53 H (9-20) mg/dL Creatinine 6.39 H (0.66-1.25) mg/dL Calcium 7.6 L (8.4-10.2) mg/dL Microbiology - Last 24 Hours (Table) 01/08/24 17:22 Blood Culture - Preliminary Blood 01/09/24 06:09 Blood Culture - Preliminary Blood
--- NOTE | 2024-01-12 12:46 | P.PN ---
Subjective Progress Note Date: 01/12/24 Principal diagnosis: Reason for follow-up is fever and a positive blood culture Patient is a 38-year-old male with a past medical history of GERD for hypertension hepatitis C pancreatitis reflux history of alcoholism patient was brought into the ER by EMS after apparently the patient was noticed to be facedown in the snow when the EMS got him up he was unable to speak patient was hypothermic and subsequently brought into the ER for further evaluation, on arrival to the ER the patient did have a fever did have elevated white count chest x-ray UA was negative abdominal soft LP was done last night which came back negative as well. On today's evaluation that is 01/12/2024,the patient remains to be afebrile, patient is on room air not requiring supplemental oxygen and denies any shortness of breath no chest pain occasional cough no sputum production.Patient denies having any nausea or vomiting, no abdominal pain and no diarrhea has been reported. Patient white count is 5.9, creatinine 6.39 blood cultures been negative Objective - Vital Signs Vital signs: Vital Signs Temp 98.4 F 01/12/24 07:04 Pulse 70 01/12/24 07:04 Resp 17 01/12/24 07:04 BP 103/61 01/12/24 07:04 Pulse Ox 100 01/12/24 07:04 FiO2 Intake & Output 01/11/24 01/12/24 01/12/24 18:59 06:59 18:59 Intake Total 870 680 Output Total 250 950 Balance 620 -270 Weight 98 kg Intake: IV 10 530 Invasive Line 3 10 10 Sodium Chloride 0.9% 1, 520 000 ml @ 40 mls/hr IV . Q24H [facility] Rx#:[id number] Oral 860 150 Output: Urine 250 950 Other: Voiding Method Indwelling Catheter Indwelling Catheter # Voids 1 # Bowel Movements 1 - Exam GENERAL DESCRIPTION: Middle-age male lying in bed in no distress RESPIRATORY SYSTEM: Unlabored breathing , decreased breath sounds at bases HEART: S1 S2 regular rate and rhythm , ABDOMEN: Soft , no tenderness EXTREMITIES: No edema feet - Labs CBC & Chem 7: 01/11/24 11:28 01/11/24 11:28 Labs: Abnormal Lab Results - Last 24 Hours (Table) 01/11/24 Range/Units 11:28 Sodium 133 L (137-145) mmol/L Potassium 3.3 L (3.5-5.1) mmol/L BUN 53 H (9-20) mg/dL Creatinine 6.39 H (0.66-1.25) mg/dL Calcium 7.6 L (8.4-10.2) mg/dL Microbiology - Last 24 Hours (Table) 01/08/24 17:22 Blood Culture - Preliminary Blood 01/09/24 06:09 Blood Culture - Preliminary Blood Assessment and Plan (1) Fever with leukocytosis and leukocyte count greater than or equal to 20,000 Current Visit: Yes Status: Acute Code(s): D72.829 - ELEVATED WHITE BLOOD CELL COUNT, UNSPECIFIED SNOMED Code(s): 729556103 (2) Positive blood culture Current Visit: No Status: Acute Code(s): R78.81 - BACTEREMIA SNOMED Code(s): 485708673 Plan: 1patient presented hospital with episode of unresponsiveness by the EMS patient did have features of sepsis running a fever did have elevated white count, initial workup including a chest x-ray and UA has been negative the patient abdominal was soft on clinical examination and there was no evidence of any c ellulitis with a question of possible [employer] infection however the patient did have LP completed last night by ER physician and is negative 2-patient with a positive blood culture with coagulase-negative staph with concern for possible vs contamination possible pathogen monitor slowly as the patient did have a fever on admission to the hospital and some cellulitis of the left lower extremity, repeat blood culture has been negative, daptomycin was discontinued as of 01/11/2024 3-patient did have elevated procalcitonin, repeat chest x-ray with mild lateral subsegmental areas of consolidation 4-patient is slowly clinical improving we will continue the patient on Rocephin antibiotic clinical closely Dictation was produced using [employer] dictation software. please excuse any grammatical, word or spelling errors. Time with Patient: Less than 30
[2024-01-12] MEDS: NALOXONE 0.4 MG/ML 1 ML VIAL IV PRN (13:09)
[2024-01-12 13:37] LABS: African American GFR (CKD) 10 (>60 ml/min/1.73 sqM); Anion Gap 7 mmol/L; Blood Urea Nitrogen 60 mg/dL (9-20); Calcium 7.7 mg/dL (8.4-10.2); Carbon Dioxide 19 mmol/L (22-30); Chloride 104 mmol/L (98-107); Glucose 98 mg/dL (74-99); Non-African American GFR(CKD) 9 (>60 ml/min/1.73 sqM); Potassium 4.2 mmol/L (3.5-5.1); Sodium 130 mmol/L (137-145)
--- NOTE | 2024-01-12 13:43 | P.PN ---
Subjective Progress Note Date: 01/12/24 This is a 38-year-old white male with history of multiple medical problems including alcoholism, hepatitis C, hypertension, GERD, patient was brought into the ER yesterday after he was noted to be face down in the snow, upon EMS arrival, the patient was hypothermic, and altered mental status. In the ER, the patient was noted to have temp of 102.6, he was tachycardic, and was not hypotensive or hypoxic. Workup in the ER included CBC which showed leukocytosis. His bicarb was noted to be low, patient was noted to have anion gap metabolic acidosis, he was also noted to have renal failure with a BUN of 51 creatinine 3.45. His CPK was significantly elevated almost 92,000, troponin elevated at 1.6, and liver enzymes were also elevated including AST and ALT. There was evidence of blood in the urine. No drug screen was done at the time of arrival, but his alcohol level was less than 10. His RSV PCR was positive. Drug screen in the ICU was positive for barbiturates, amphetamine, methamphetamine, and benzodiazepines. Patient was seen by many consultants including infectious disease, patient was started empirically on antibiotics in the form of Rocephin and vancomycin, and infectious disease recommended a lumbar puncture on this patient. Initial chemistry on the spinal fluid seems to be unremarkable. Final report is pending. His blood cultures today are positive for gram-positive cocci in clusters. Patient was seen by nephrology today, and recommending starting the patient on hemodialysis. Patient was felt to have acute kidney injury secondary to ATN, and severe sepsis and rhabdomyolysis, oliguric, unresponsive to diuretics, and there was no hydronephrosis on the abdominal ultrasound. At any rate patient is scheduled to have a dialysis catheter placement today. Last night the patient was on the regular medical floor, I was made aware of this patient because his CIWA score was 20,, patient was already on a bicarb drip, and I have recommended transferring the patient o ut of the floor to the ICU saw this patient this morning, reviewed all his labs and workup, remains on bicarb drip, empirically on antibiotics for his presumptive severe sepsis and bacteremia as noted on blood cultures today, patient continues to have significantly elevated CPK, continues to have wo rsening renal failure. Blood pressure was high and I recommended Cleviprex at 2 mg/h. Also recommended a drug screen to be done. Patient did not require Precedex, he is agitation is well-controlled with Ativan. According to the patient his last alcohol drink was 2 days ago. Patient is not a great historian, seems to mumble but does not give adequate history. And he is by all means encephalopathic. But able to protect his airways, and able to cough and clear secretions. Hence did not feel the need to intubate this patient at this point. Procalcitonin level this morning is 45.9 Patient was reevaluated today on 01/06/2024, his blood cultures are actually now coagulase-negative staph, most likely blood cultures are contaminated. Patient is still restless and agitated easily, remains in the ICU, he will be undergoing dialysis today, he had dialysis yesterday. Complaining of hurting all over, patient remains a bit confused, and lethargic. His creatinine is high at 4.3, hemoglobin is down from 16.3 on admission now 10.3, platelets are coming down, hence I am stopping his heparin. CPK remains high at 158,000, patient is still receiving fluids at 200 cc/h, and he will have more dialysis today. Patient is extremely oliguric. Liver enzymes are also elevated with a AST of 2498, and ALT 573, improving compared to yesterday Patient was reevaluated today on 01/07/2024, remains in the ICU, marginal at best. On 3 L nasal cannula, remains a bit encephalopathic with a slight imp rovement in his overall mental status patient knows that he is at [facility], he realized the year is 2023. Patient continues to have marginal urine output, he is oliguric, intermittently on hemodialysis, patient remains on daptomycin and ceftriaxone, blood cultures were contaminated with staph/coagulase negative. Spinal fluid cultures have been negative CPK is coming down today, he is down to 89,000 from 159,000 yesterday. Renal functioning is about the same with a creatinine 4.60 and BUN of 49, Liver enzymes are steadily improving. And ammonia level is less than 90. His IV fluid remains at 200 cc/h patient is receiving MVI. Progress note dated January 08, 2024. 38-year-old male who was admitted to the hospital on 04 January. The patient came to the intensive care unit on the . Currently, the patient is seen today in room 255. The patient is on room air. He is getting saline at 130 cc an hour. He continues on dexmedetomidine at 0.4 mcg/kg/h. The patient has had hemodialysis, twice, but is planning to have hemodialysis again today. Will add some Haldol, Seroquel, and clonidine patch to his regimen, to get him off the dexmedetomidine. Current labs include white count 8.7, hemoglobin 9.3, hematocrit 27.8, and platelet count 108,000. Sodium 131, potassium 4.7, chlorides 105, CO2 14, anion gap 12, BUN 66, creatinine 6.25. AST is 1516. ALT is 546. CK is down from 89,000, to 73,807. Blood cultures are positive for coag negative staph. No chest x-ray to report on. Progress note dated January 09, 2024. 38-year-old male who was admitted to the hospital on January 04. The patient came to the intensive care unit, on the . Currently, the patient is seen today in room 255. The patient continues on room air. The patient is getting saline at 75 cc an hour. He will have another hemodialysis session today, which is #4. Yesterday, he had hemodialysis, and 2 L was removed. He is currently off the dexmedetomidine. White count 7.4, hemoglobin 7.8, hematocrit 22.8, platelet count 124,000. Sodium 130, potassium 3.6, chlorides 103, CO2 22, BUN 59, creatinine 5.67. His calcium is 7.0. Blood cultures were positive for coag negative staph. Progress note dated January 10, 2024. 38-year-old male again seen today in room 255, the intensive care unit. Currently, the patient is on room air. He is getting saline at 40 cc an hour. According to his nurse, he had an uneventful night. In our opinion, the patient is stable to be transferred out of the intensive care unit. Current labs include a white count of 6.7, hemoglobin 8, hematocrit 23.9, and a platelet count of 136,000. Sodium 130, potassium 3.3, chlorides 103, CO2 26, BUN 40, creatinine 4.63. His CK is down to 36,783. Procalcitonin level is 1.46. Progress note dated January 11, 2024. 38-year-old male seen again in room 255. The patient is currently doing better. The patient is on room air. He is getting saline at 40 cc an hour. According to his nurse, the patient had an uneventful night. The patient is calm, and not agitated. No new labs today. Chest x-ray suggest some bilateral subsegmental atelectasis. The patient is seen today January 12, 2024 in follow-up on the regular medical floor. He is currently resting comfortably in bed. Awake and alert in no acute distress. Maintaining O2 saturation in the 90s on room air. No IV fluids. He has been calm and cooperative. Follow-up blood cultures revealed no growth. Cerebrospinal fluid cultures revealed no growth. No new labs today. He remains on ceftriaxone. NicoDerm patch in place. Heparin for DVT prophylaxis. He remains on the CIWA protocol. He did require Ativan early this morning. Objective - Vital Signs Vital signs: Vital Signs Temp 98.4 F 01/12/24 07:04 Pulse 70 01/12/24 07:04 Resp 16 01/12/24 13:09 BP 103/61 01/12/24 07:04 Pulse Ox 100 01/12/24 07:04 FiO2 Intake & Output 01/11/24 01/12/24 01/12/24 18:59 06:59 18:59 Intake Total 870 680 Output Total 250 950 Balance 620 -270 Weight 98 kg Intake: IV 10 530 Invasive Line 3 10 10 Sodium Chloride 0.9% 1, 520 000 ml @ 40 mls/hr IV . Q24H [facility] Rx#:[id number] Oral 860 150 Output: Urine 250 950 Other: Voiding Method Indwelling Catheter Indwelling Catheter # Voids 1 # Bowel Movements 1 - Exam GENERAL EXAM: Alert, currently calm and cooperative 38-year-old male, on room air, comfortable in no apparent distress. HEAD: Normocephalic. EYES: Normal reaction of pupils, equal size. NOSE: Clear with pink turbinates. THROAT: No erythema or exudates. NECK: No masses, no JVD. CHEST: No chest wall deformity. LUNGS: Equal air entry with no crackles, wheeze, rhonchi or dullness. CVS: S1 and S2 normal with no audible murmur, regular rhythm. ABDOMEN: No hepatosplenomegaly, normal bowel sounds, no guarding or rigidity. SPINE: No scoliosis or deformity SKIN: No rashes CENTRAL NERVOUS SYSTEM: No focal deficits, tone is normal in all 4 extremities. EXTREMITIES: There is no peripheral edema. No clubbing, no cyanosis. Peripheral pulses are intact. - Labs CBC & Chem 7: 01/11/24 11:28 01/11/24 11:28 Labs: Microbiology - Last 24 Hours (Table) 01/09/24 06:09 Blood Culture - Preliminary Blood 01/08/24 17:22 Blood Culture - Preliminary Blood Assessment and Plan Assessment: Acute alcohol withdrawal syndrome Acute metabolic encephalopathy, improved Possible bacteremia secondary to coagulase-negative staphylococci Hypothermia, resolved Acute transaminitis Acute RSV infection Acute kidney injury secondary to rhabdomyolysis, currently on hemodialysis History of alcoholism History of hepatitis C History of gastroesophageal reflux disease History of IV drug abuse History of pancreatitis History of bipolar disorder and depression Plan: The patient was seen and evaluated Currently stable and on room air Remains on the CIWA protocol Continued on a NicoDerm patch Heparin for DVT prophylaxis Increase his activity as tolerated Antibiotics per ID services I have personally seen and examined the patient, performed the documentation and the assessment and plan as written. Number of minutes spent on the visit: 10.
[2024-01-12 15:29] LABS: Anisocytosis Slight; Basophils % (A) 0 %; Eosinophils # (A) 0.4 k/uL (0-0.7); Eosinophils % (A) 5 %; HCT 23.4 % (39.0-53.0); HGB 7.9 gm/dL (13.0-17.5); Lymphocytes # (A) 0.8 k/uL (1.0-4.8); Lymphocytes % (A) 11 %; MCH 28.5 pg (25.0-35.0); MCHC 33.6 g/dL (31.0-37.0); MCV 84.7 fL (80.0-100.0); Mean Platelet Volume 9.4; Monocytes # (A) 0.2 k/uL (0-1.0); Monocytes % (A) 3 %; Neutrophils # (A) 5.5 k/uL (1.3-7.7); Neutrophils % (A) 79 %; Platelet Count 211 k/uL (150-450); RBC 2.76 m/uL (4.30-5.90); RDW 16.8 % (11.5-15.5)
--- NOTE | 2024-01-12 21:03 | P.PN ---
Subjective Patient is seen for follow-up for acute kidney injury. He was started on hemodialysis on 01/05/2024 for oliguric ATN and severe rhabdomyolysis. Urine output has improved. Last dialysis was on 03/09/2024. Mentation has improved. Labs are pending from today. Creatinine had increased to 6.39 yesterday. If serum creatinine is not significantly further increased I will continue to hold dialysis. Objective - Vital Signs Vital signs: Vital Signs Temp 98.0 F 01/12/24 13:28 Pulse 71 01/12/24 13:28 Resp 17 01/12/24 13:28 BP 127/77 01/12/24 13:28 Pulse Ox 100 01/12/24 13:28 FiO2 Intake & Output 01/12/24 01/12/24 01/13/24 06:59 18:59 06:59 Intake Total 680 Output Total 950 Balance -270 Weight 98 kg Intake: IV 530 Invasive Line 3 10 Sodium Chloride 0.9% 1, 520 000 ml @ 40 mls/hr IV . Q24H [facility] Rx#:[id number] Oral 150 Output: Urine 950 Other: Voiding Method Indwelling Catheter # Voids 1 3 # Bowel Movements 1 1 - Exam Patient is sleeping but arousable Examination of the heart S1 and S2 Examination of the lungs bilateral breath sounds are heard Abdomen is soft nontender Examination of lower extremity shows no significant edema Patient is moving all 4 extremities. Answers simple questions appropriately - Labs CBC & Chem 7: 01/12/24 15:16 01/12/24 13:06 Labs: Abnormal Lab Results - Last 24 Hours (Table) 01/12/24 01/12/24 Range/Units 13:06 15:16 RBC 2.76 L (4.30-5.90) m/uL Hgb 7.9 L (13.0-17.5) gm/dL Hct 23.4 L (39.0-53.0) % RDW 16.8 H (11.5-15.5) % Lymphocytes # 0.8 L (1.0-4.8) k/uL Sodium 130 L (137-145) mmol/L Carbon Dioxide 19 L (22-30) mmol/L BUN 60 H (9-20) mg/dL Creatinine 7.41 H* (0.66-1.25) mg/dL Calcium 7.7 L (8.4-10.2) mg/dL Microbiology - Last 24 Hours (Table) 01/09/24 06:09 Blood Culture - Preliminary Blood 01/08/24 17:22 Blood Culture - Preliminary Blood Assessment and Plan Assessment: 1. Acute kidney injury secondary to ATN secondary to severe sepsis and rhabdomyolysis. Baseline creatinine 0.5-0.6 and up to 4.02 on 01/05/24 and started HD. Urine output is slightly improved.. No hydronephrosis noted on abdominal ultrasound. Hemodialysis on hold however serum creatinine is slowly increasing. 2. Rhabdomyolysis secondary to fall/immobility. [place] level greater [place] 160,[place] [address] 3. Severe sepsis secondary to gram-positive bacteremia. On IV antibiotics. 4. Metabolic acidosis secondary to acute kidney injury. 5. Initially hypernatremia, now mildly hyponatremic at 133. 6. Hypocalcemia secondary to acute kidney injury and rhabdomyolysis. Improved. Avoid aggressive calcium replacement to avoid calcium phosphate precipitation in tissues. 7. Non-gap metabolic acidosis secondary to severe acute kidney injury and rhabdomyolysis Plan: Hold hemodialysis today. Reevaluate for need for hemodialysis tomorrow Continue saline to about 40 cc an hour Encourage increase oral intake particularly fluid. Repeat labs in a.m.
--- NOTE | 2024-01-13 02:48 | P.PN ---
Subjective Progress Note Date: 01/12/24 patient is a 38-year-old gentleman past medical significant for alcohol abuse, liver disease who presented to the ER for altered mental status. Patient has a history of alcohol abuse and has multiple admissions to this hospital for alcohol detox. Patient was brought in the ED by EMS after being found lying facedown in snow. There was no obvious sign of any trauma. Patient was unable to respond to any questions. EMS brought him immediately to the ER Initial lab work done in the ER showed WBC 22, hemoglobin 16.4, platelet count 274, sodium 152, potassium 5.1, BUN 38, creatinine 3.47, glucose 105, bilirubin 0.7, AST 1723, ALT 399, troponin 2.39 EKG done in the ER showed heart rate of 125, no ST segment elevation or depression seen, no T-wave inversions seen. Chest x-ray done in the ER showed no acute cardiopulmonary process CT head done showed no acute intracranial process CT cervical spine negative for any acute fracture or dislocation Patient admitted to internal medicine service. On my interview with patient, patient was much more responsive, kept on asking about getting soda and water. Stated that he has been laying on the ground for more than 15 hours. Patient is currently running a fever. Denies any chest pain or shortness of breath. Complaining of generalized body aches 01/05. Patient seen and examined. Blood work done this morning showed WBC 10.5, hemoglobin 9.8, platelet count 137, sodium 132, potassium 3.8, BUN 60, creatinine 4.02, calcium 6, CK greater than [id number]. 2D echo done showed LVEF of 50 to 55%, no mitral regurg, trace tricuspid regurg 01/06. Patient seen and examined. Currently in restraints. Currently getting dialysis. Complaining of pain in his tongue, apparently bit his tongue during the fall. 01/07. Patient seen and examined. Continues to be in ICU. Currently on Precedex and IV fluids. Patient currently off restraints, is alert to self. 01/08. Patient seen and examined.Blood work done this morning showed WBC 8.7, hemoglobin 9.3, sodium 137, potassium 4.7, BUN 66, creatinine 6.25, AST is 1516, ALT is 546, currently on 2 L of oxygen. Patient is alert, answering questions, currently on Precedex drip. 01/09/2024 Patient is in MICU. Currently lying in the bed. Awake and alert but lethargic and drowsy. Currently on room air. Tolerating oral diet. Laboratory data showed WBC 7.4 hemoglobin 7.8 and platelets 124, sodium 1:30 potassium 3.6 chloride 103 bicarb is 22 BUN 59 and creatinine 5.67 01/10/2024 Patient is in the MICU. Awake alert and oriented. Seems to be more awake today. On room air. No complaints of chest pain or shortness breath. Patient does have good oral input. No fever no chills. Laboratory data showed WBC 6.7 hemoglobin 8.0 and platelets 136, sodium 1:30 potassium 3.3 chloride 103 bicarb is 26 BUN 40 and creatinine trending down to 4.63 today. Calcium 7.1 and pro calcitonin was 1.46. Patient is on antibiotics ceftriaxone. ID, nephrology and pulmonary is on board. 01/11/2024 Patient is resting in the bed. On room air. Able to ambulate in the room. Patient is being transferred to ICU. Urine output has been improving. Last hemodialysis on 01/09/2024. Patient has been afebrile. Repeat blood cultures negative. Laboratory data showed no illicit 5.9 hemoglobin 9.2 and platelets 154 sodium 133 potassium 2.3 and chloride 103 and bicarb 23 BUN 53 and creatinine 6.39. Patient is on normal saline at 40 mL per hour. On antibiotics ceftriaxone. 01/12/2024 Patient is currently in the telemetry unit. Patient is lying in the bed. Awake alert and orient x 3. No complaints of chest pain. Denies any worsening shortness of breath. No cough or sputum function. Patient is being cannula antibiotics ceftriaxone. Currently on IV hydration with normal saline at 40 cc/h. Patient is tolerating dysphagia level 3 diet. Laboratory pressure WBC 7.0 hemoglobin 7.9 and platelets 211 Sodium 130 potassium 4.2 chloride 104 bicarb is 19 BUN 16 creatinine went up to 7.41 again today. REVIEW OF SYSTEMS: Denies any chest pain. Denies any shortness of breath No complaint of nausea, vomiting or abdominal pain PHYSICAL EXAMINATION: GENERAL: The patient is alert to self, not in any acute distress. Ill looking HEENT: Pupils are round and equally reacting to light. EOMI. No scleral icterus. No conjunctival pallor. Normocephalic, atraumatic. No pharyngeal erythema. No thyromegaly. Tongue swollen secondary to the bite CARDIOVASCULAR: S1 and S2 present. No murmurs, rubs, or gallops. Tachycardic PULMONARY: Coarse breath sound bilaterally, no wheezing or crackles. ABDOMEN: Soft, nontender, nondistended, normoactive bowel sounds. No palpable organomegaly. MUSCULOSKELETAL: No joint swelling or deformity. EXTREMITIES: No cyanosis, clubbing, or pedal edema. NEUROLOGICAL: Gross neurological examination did not reveal any focal deficits. SKIN: No rashes. Assessment and plan Acute metabolic encephalopathy. Improving. Acute kidney injury secondary to ATN due to infection and rhabdomyolysis. requiring hemodialysis. Started on 01/05/2024. Patient had last hemodialysis on 01/09/2024 Gram-positive Bacteremia. Coagulase-negative staph. Repeat blood cultures negative. Sepsis Acute Rhabdomyolysis secondary to fall Hypothermia Hypernatremia. Resolved. Hypocalcemia secondary to acute kidney injury and rhabdomyolysis. Leukocytosis Elevated troponin level. Ratio of CPK and troponin suggest skeletal muscle injury pattern in the sitting up acute right. Acute transaminitis Fall History of alcohol abuse Acute alcohol withdrawal symptoms History of depression Monitor vital signs Monitor CBC Monitor CMP Continue telemetry monitoring Trend troponin. Follow-up on blood cultures 2D echo done showed LVEF of 50 to 55%, no mitral regurg, trace tricuspid regurg Avoid nephrotoxic agent Avoid hepatotoxic agents Strict I's and O's, daily weights Continue IV fluids Continue IV Rocephin . DC'd daptomycin patient is status post LP with CSF culture negative. Continue CIWA protocol continue high-dose thiamine and folic acid Dialysis on hold currently. Nephrology is going to reevaluate tomorrow regarding need for reinitiation of hemodialysis. ID and critical care team is on board. Labs and medication were reviewed.. Continue with symptomatic treatment. Resume home medication. Monitor labs and vitals. DVT and GI prophylaxis. Dictation was produced using [employer] dictation software. please excuse any grammatical, word or spelling errors. Objective - Vital Signs Vital signs: Vital Signs Temp 98.4 F 01/12/24 07:04 Pulse 70 01/12/24 07:04 Resp 17 01/12/24 07:04 BP 103/61 01/12/24 07:04 Pulse Ox 100 01/12/24 07:04 FiO2 Intake & Output 01/11/24 01/12/24 01/12/24 18:59 06:59 18:59 Intake Total 870 680 Output Total 250 950 Balance 620 -270 Weight 98 kg Intake: IV 10 530 Invasive Line 3 10 10 Sodium Chloride 0.9% 1, 520 000 ml @ 40 mls/hr IV . Q24H [facility] Rx#:[id number] Oral 860 150 Output: Urine 250 950 Other: Voiding Method Indwelling Catheter Indwelling Catheter # Voids 1 # Bowel Movements 1 - Labs CBC & Chem 7: 01/12/24 15:16 01/12/24 13:06 Labs: Abnormal Lab Results - Last 24 Hours (Table) 01/11/24 01/11/24 Range/Units 11:28 11:28 RBC 3.28 L (4.30-5.90) m/uL Hgb 9.2 L (13.0-17.5) gm/dL Hct 27.7 L (39.0-53.0) % RDW 16.3 H (11.5-15.5) % Sodium 133 L (137-145) mmol/L Potassium 3.3 L (3.5-5.1) mmol/L BUN 53 H (9-20) mg/dL Creatinine 6.39 H (0.66-1.25) mg/dL Calcium 7.6 L (8.4-10.2) mg/dL Microbiology - Last 24 Hours (Table) 01/08/24 17:22 Blood Culture - Preliminary Blood 01/09/24 06:09 Blood Culture - Preliminary Blood
[2024-01-13 10:26] LABS: Phosphorus 6.4 mg/dL (2.4-5.1)
--- NOTE | 2024-01-13 10:50 | P.PN ---
Subjective Patient is seen for follow-up for acute kidney injury. He was started on hemodialysis on 01/05/2024 for oliguric ATN and severe rhabdomyolysis. Urine output has improved. Last dialysis was on 03/09/2024. Mentation has improved. Labs are pending from today. Creatinine was 7.4 yesterday however 24-hour urine output documented at 1200 mL. Awaiting today's labs to decide on dialysis. Renal function is recovering. Objective - Vital Signs Vital signs: Vital Signs Temp 98 F 01/13/24 07:00 Pulse 84 01/13/24 07:00 Resp 18 01/13/24 07:00 BP 172/83 01/13/24 07:00 Pulse Ox 98 01/13/24 07:00 FiO2 Intake & Output 01/12/24 01/13/24 01/13/24 18:59 06:59 18:59 Weight 104 kg Other: Voiding Method Urinal # Voids 3 3 # Bowel Movements 1 - Exam Patient is sleeping but arousable Examination of the heart S1 and S2 Examination of the lungs bilateral breath sounds are heard Abdomen is soft nontender Examination of lower extremity shows no significant edema Patient is moving all 4 extremities. Answers simple questions appropriately - Labs CBC & Chem 7: 01/12/24 15:16 01/12/24 13:06 Labs: Abnormal Lab Results - Last 24 Hours (Table) 01/12/24 01/12/24 01/13/24 Range/Units 13:06 15:16 05:50 RBC 2.76 L (4.30-5.90) m/uL Hgb 7.9 L (13.0-17.5) gm/dL Hct 23.4 L (39.0-53.0) % RDW 16.8 H (11.5-15.5) % Lymphocytes # 0.8 L (1.0-4.8) k/uL Sodium 130 L (137-145) mmol/L Carbon Dioxide 19 L (22-30) mmol/L BUN 60 H (9-20) mg/dL Creatinine 7.41 H* (0.66-1.25) mg/dL Calcium 7.7 L (8.4-10.2) mg/dL Phosphorus 6.4 H (2.4-5.1) mg/dL Microbiology - Last 24 Hours (Table) 01/09/24 06:09 Blood Culture - Preliminary Blood Assessment and Plan Assessment: 1. Acute kidney injury secondary to ATN secondary to severe sepsis and rhabdomyolysis. Baseline creatinine 0.5-0.6 and up to 4.02 on 01/05/24 and started HD. Urine output is slightly improved.. No hydronephrosis noted on abdominal ultrasound. Hemodialysis on hold however serum creatinine is slowly increasing. 2. Rhabdomyolysis secondary to fall/immobility. CK level greater than 160,[place] [address] 3. Severe sepsis secondary to gram-positive bacteremia. On IV antibiotics. 4. Metabolic acidosis secondary to acute kidney injury. 5. Initially hypernatremia, now mildly hyponatremic at 133. 6. Hypocalcemia secondary to acute kidney injury and rhabdomyolysis. Improved. 7. Non-gap metabolic acidosis secondary to severe acute kidney injury and rhabdomyolysis Plan: Possible hemodialysis today depending on labs. Urine output has improved significantly to 1.2 L per 24 hours.
[2024-01-13 11:23] LABS: African American GFR (CKD) 9 (>60 ml/min/1.73 sqM); Anion Gap 4 mmol/L; Blood Urea Nitrogen 65 mg/dL (9-20); Calcium 7.8 mg/dL (8.4-10.2); Carbon Dioxide 21 mmol/L (22-30); Chloride 107 mmol/L (98-107); Glucose 72 mg/dL (74-99); Non-African American GFR(CKD) 8 (>60 ml/min/1.73 sqM); Potassium 4.5 mmol/L (3.5-5.1); Sodium 132 mmol/L (137-145)
[2024-01-13 11:31] LABS: ALT 175 U/L (10-49); AST 104 U/L (14-35); Albumin 2.7 g/dL (3.8-4.9); Albumin/Globulin Ratio 1.35 Ratio (1.60-3.17); Alkaline Phosphatase 40 U/L (41-126); BUN/Creat Ratio 7.23 Ratio (12.00-20.00); Blood Urea Nitrogen 59.3 mg/dL (9.0-27.0); Calcium 8.3 mg/dL (8.7-10.3); Carbon Dioxide 21.4 mmol/L (21.6-31.8); Chloride 101 mmol/L (96-109); Creatine Kinase 2293 U/L (35-257); Glucose 100 mg/dL (70-110); Potassium 4.5 mmol/L (3.5-5.5); Sodium 136 mmol/L (135-145); Total Bilirubin 0.2 mg/dL (0.3-1.2); Total Protein 4.7 g/dL (6.2-8.2)
--- NOTE | 2024-01-13 11:35 | P.PN ---
Subjective Progress Note Date: 01/13/24 Principal diagnosis: Reason for follow-up is fever and a positive blood culture Patient is a 38-year-old male with a past medical history of GERD for hypertension hepatitis C pancreatitis reflux history of alcoholism patient was brought into the ER by EMS after apparently the patient was noticed to be facedown in the snow when the EMS got him up he was unable to speak patient was hypothermic and subsequently brought into the ER for further evaluation, on arrival to the ER the patient did have a fever did have elevated white count chest x-ray UA was negative abdominal soft LP was done last night which came back negative as well. On today's evaluation that is 01/13/2024, the patient continues to be afebrile, the patient is on room air and breathing comfortably, the Pt denies having any chest pain or cough, the patient denies having any abdominal pain no vomiting or any diarrhea has been reported by the nursing staff. Creatinine is 8.11 no CBC was done today blood culture repeat has been negative Objective - Vital Signs Vital signs: Vital Signs Temp 98 F 01/13/24 07:00 Pulse 84 01/13/24 07:00 Resp 18 01/13/24 07:00 BP 172/83 01/13/24 07:00 Pulse Ox 98 01/13/24 07:00 FiO2 Intake & Output 01/12/24 01/13/24 01/13/24 18:59 06:59 18:59 Weight 104 kg Other: Voiding Method Urinal # Voids 3 3 # Bowel Movements 1 - Exam GENERAL DESCRIPTION: Middle-age male lying in bed in no distress RESPIRATORY SYSTEM: Unlabored breathing , decreased breath sounds at bases HEART: S1 S2 regular rate and rhythm , ABDOMEN: Soft , no tenderness EXTREMITIES: No edema feet - Labs CBC & Chem 7: 01/12/24 15:16 01/13/24 10:21 Labs: Abnormal Lab Results - Last 24 Hours (Table) 01/12/24 01/12/24 01/13/24 Range/Units 13:06 15:16 05:50 RBC 2.76 L (4.30-5.90) m/uL Hgb 7.9 L (13.0-17.5) gm/dL Hct 23.4 L (39.0-53.0) % RDW 16.8 H (11.5-15.5) % Lymphocytes # 0.8 L (1.0-4.8) k/uL Sodium 130 L (137-145) mmol/L Carbon Dioxide 19 L 21.4 L (22-30) mmol/L Anion Gap 13.60 H (4.00-12.00) mmol/L BUN 60 H 59.3 H (9-20) mg/dL Creatinine 7.41 H* 8.2 A* (0.66-1.25) mg/dL Est GFR (CKD-EPI) 8 L (>=60) BUN/Creatinine Ratio 7.23 L (12.00-20.00) Ratio Glucose (74-99) mg/dL Calcium 7.7 L 8.3 L (8.4-10.2) mg/dL Phosphorus 6.4 H (2.4-5.1) mg/dL Total Bilirubin 0.2 L (0.3-1.2) mg/dL AST 104 H (14-35) U/L ALT 175 H (10-49) U/L Alkaline Phosphatase 40 L (41-126) U/L Creatine Kinase 2293 A* (35-257) U/L Total Protein 4.7 L (6.2-8.2) g/dL Albumin 2.7 L (3.8-4.9) g/dL Albumin/Globulin Ratio 1.35 L (1.60-3.17) Ratio // Range/Units 10:21 RBC (4.30-5.90) m/uL Hgb (13.0-17.5) gm/dL Hct (39.0-53.0) % RDW (11.5-15.5) % Lymphocytes # (1.0-4.8) k/uL Sodium 132 L (137-145) mmol/L Carbon Dioxide 21 L (22-30) mmol/L Anion Gap (4.00-12.00) mmol/L BUN 65 H (9-20) mg/dL Creatinine 8.11 H* (0.66-1.25) mg/dL Est GFR (CKD-EPI) (>=60) BUN/Creatinine Ratio (12.00-20.00) Ratio Glucose 72 L (74-99) mg/dL Calcium 7.8 L (8.4-10.2) mg/dL Phosphorus (2.4-5.1) mg/dL Total Bilirubin (0.3-1.2) mg/dL AST (14-35) U/L ALT (10-49) U/L Alkaline Phosphatase (41-126) U/L Creatine Kinase (35-257) U/L Total Protein (6.2-8.2) g/dL Albumin (3.8-4.9) g/dL Albumin/Globulin Ratio (1.60-3.17) Ratio Microbiology - Last 24 Hours (Table) 01/09/24 06:09 Blood Culture - Preliminary Blood Assessment and Plan (1) Fever with leukocytosis and leukocyte count greater than or equal to 20,000 Current Visit: Yes Status: Acute Code(s): D72.829 - ELEVATED WHITE BLOOD CELL COUNT, UNSPECIFIED SNOMED Code(s): 216282179 (2) Positive blood culture Current Visit: No Status: Acute Code(s): R78.81 - BACTEREMIA SNOMED Code(s): 435549825 Plan: 1patient presented hospital with episode of unresponsiveness by the EMS patient did have features of sepsis running a fever did have elevated white count, initial workup including a chest x-ray and UA has been negative the patient abdominal was soft on clinical examination and there was no evidence of any cellulitis with a question of possible [employer] infection however the patient did have LP completed last night by ER physician and is negative 2-patient with a positive blood culture with coagulase-negative staph with conc sunshine for possible vs contamination possible pathogen monitor slowly as the patient did have a fever on admission to the hospital and some cellulitis of the left lower extremity, repeat blood culture has been negative, daptomycin was discontinued as of 01/11/2024 3-patient did have elevated procalcitonin, repeat chest x-ray with mild lateral subsegmental areas of consolidation 4-patient remains to be afebrile and the patient white count is normal, we will continue the patient on Rocephin and monitor clinical course closely Dictation was produced using [employer] dictation software. please excuse any grammatical, word or spelling errors. Time with Patient: Less than 30
[2024-01-13 12:12] LABS: Basophils # (A) 0.03 X 10*3/uL (0.00-0.10); Basophils % (A) 0.4 %; Eosinophils # (A) 0.42 X 10*3/uL (0.04-0.35); Eosinophils % (A) 5.4 %; HCT 23.7 % (39.6-50.0); HGB 7.7 g/dL (13.0-17.0); Lymphocytes # (A) 1.16 X 10*3/uL (0.90-5.00); MCHC 32.5 g/dL (32.0-37.0); MCV 86.2 FL (80.0-97.0); Monocytes # (A) 0.22 X 10*3/uL (0.20-1.00); Monocytes % (A) 2.8 %; NRBC Per 100 WBC 0 X 10*3/uL (0.00-0.01); Neutrophils # (A) 5.66 X 10*3/uL (1.80-7.70); Neutrophils % (A) 73.3 %; Platelet Count 203 X 10*3/uL (140-440); RBC 2.75 X 10*6/uL (4.40-5.60); WBC 7.73 X 10*3/uL (4.50-10.00)
--- NOTE | 2024-01-13 12:32 | P.PN ---
Subjective Progress Note Date: 01/13/24 This is a 38-year-old white male with history of multiple medical problems including alcoholism, hepatitis C, hypertension, GERD, patient was brought into the ER yesterday after he was noted to be face down in the snow, upon EMS arrival, the patient was hypothermic, and altered mental status. In the ER, the patient was noted to have temp of 102.6, he was tachycardic, and was not hypotensive or hypoxic. Workup in the ER included CBC which showed leukocytosis. His bicarb was noted to be low, patient was noted to have anion gap metabolic acidosis, he was also noted to have renal failure with a BUN of 51 creatinine 3.45. His CPK was significantly elevated almost 92,000, troponin elevated at 1.6, and liver enzymes were also elevated including AST and ALT. There was evidence of blood in the urine. No drug screen was done at the time of arrival, but his alcohol level was less than 10. His RSV PCR was positive. Drug screen in the ICU was positive for barbiturates, amphetamine, methamphetamine, and benzodiazepines. Patient was seen by many consultants including infectious disease, patient was started empirically on antibiotics in the form of Rocephin and vancomycin, and infectious disease recommended a lumbar puncture on this patient. Initial chemistry on the spinal fluid seems to be unremarkable. Final report is pending. His blood cultures today are positive for gram-positive cocci in clusters. Patient was seen by nephrology today, and recommending starting the patient on hemodialysis. Patient was felt to have acute kidney injury secondary to ATN, and severe sepsis and rhabdomyolysis, oliguric, unresponsive to diuretics, and there was no hydronephrosis on the abdominal ultrasound. At any rate patient is scheduled to have a dialysis catheter placement today. Last night the patient was on the regular medical floor, I was made aware of this patient because his CIWA score was 20,, patient was already on a bicarb drip, and I have recommended transferring the patient o ut of the floor to the ICU saw this patient this morning, reviewed all his labs and workup, remains on bicarb drip, empirically on antibiotics for his presumptive severe sepsis and bacteremia as noted on blood cultures today, patient continues to have significantly elevated CPK, continues to have wo rsening renal failure. Blood pressure was high and I recommended Cleviprex at 2 mg/h. Also recommended a drug screen to be done. Patient did not require Precedex, he is agitation is well-controlled with Ativan. According to the patient his last alcohol drink was 2 days ago. Patient is not a great historian, seems to mumble but does not give adequate history. And he is by all means encephalopathic. But able to protect his airways, and able to cough and clear secretions. Hence did not feel the need to intubate this patient at this point. Procalcitonin level this morning is 45.9 Patient was reevaluated today on 01/06/2024, his blood cultures are actually now coagulase-negative staph, most likely blood cultures are contaminated. Patient is still restless and agitated easily, remains in the ICU, he will be undergoing dialysis today, he had dialysis yesterday. Complaining of hurting all over, patient remains a bit confused, and lethargic. His creatinine is high at 4.3, hemoglobin is down from 16.3 on admission now 10.3, platelets are coming down, hence I am stopping his heparin. CPK remains high at 158,000, patient is still receiving fluids at 200 cc/h, and he will have more dialysis today. Patient is extremely oliguric. Liver enzymes are also elevated with a AST of 2498, and ALT 573, improving compared to yesterday Patient was reevaluated today on 01/07/2024, remains in the ICU, marginal at best. On 3 L nasal cannula, remains a bit encephalopathic with a slight imp rovement in his overall mental status patient knows that he is at [facility], he realized the year is 2023. Patient continues to have marginal urine output, he is oliguric, intermittently on hemodialysis, patient remains on daptomycin and ceftriaxone, blood cultures were contaminated with staph/coagulase negative. Spinal fluid cultures have been negative CPK is coming down today, he is down to 89,000 from 159,000 yesterday. Renal functioning is about the same with a creatinine 4.60 and BUN of 49, Liver enzymes are steadily improving. And ammonia level is less than 90. His IV fluid remains at 200 cc/h patient is receiving MVI. Progress note dated January 08, 2024. 38-year-old male who was admitted to the hospital on 04 January. The patient came to the intensive care unit on the . Currently, the patient is seen today in room 255. The patient is on room air. He is getting saline at 130 cc an hour. He continues on dexmedetomidine at 0.4 mcg/kg/h. The patient has had hemodialysis, twice, but is planning to have hemodialysis again today. Will add some Haldol, Seroquel, and clonidine patch to his regimen, to get him off the dexmedetomidine. Current labs include white count 8.7, hemoglobin 9.3, hematocrit 27.8, and platelet count 108,000. Sodium 131, potassium 4.7, chlorides 105, CO2 14, anion gap 12, BUN 66, creatinine 6.25. AST is 1516. ALT is 546. CK is down from 89,000, to 73,807. Blood cultures are positive for coag negative staph. No chest x-ray to report on. Progress note dated January 09, 2024. 38-year-old male who was admitted to the hospital on January 04. The patient came to the intensive care unit, on the . Currently, the patient is seen today in room 255. The patient continues on room air. The patient is getting saline at 75 cc an hour. He will have another hemodialysis session today, which is #4. Yesterday, he had hemodialysis, and 2 L was removed. He is currently off the dexmedetomidine. White count 7.4, hemoglobin 7.8, hematocrit 22.8, platelet count 124,000. Sodium 130, potassium 3.6, chlorides 103, CO2 22, BUN 59, creatinine 5.67. His calcium is 7.0. Blood cultures were positive for coag negative staph. Progress note dated January 10, 2024. 38-year-old male again seen today in room 255, the intensive care unit. Currently, the patient is on room air. He is getting saline at 40 cc an hour. According to his nurse, he had an uneventful night. In our opinion, the patient is stable to be transferred out of the intensive care unit. Current labs include a white count of 6.7, hemoglobin 8, hematocrit 23.9, and a platelet count of 136,000. Sodium 130, potassium 3.3, chlorides 103, CO2 26, BUN 40, creatinine 4.63. His CK is down to 36,783. Procalcitonin level is 1.46. Progress note dated January 11, 2024. 38-year-old male seen again in room 255. The patient is currently doing better. The patient is on room air. He is getting saline at 40 cc an hour. According to his nurse, the patient had an uneventful night. The patient is calm, and not agitated. No new labs today. Chest x-ray suggest some bilateral subsegmental atelectasis. The patient is seen today January 12, 2024 in follow-up on the regular medical floor. He is currently resting comfortably in bed. Awake and alert in no acute distress. Maintaining O2 saturation in the 90s on room air. No IV fluids. He has been calm and cooperative. Follow-up blood cultures revealed no growth. Cerebrospinal fluid cultures revealed no growth. No new labs today. He remains on ceftriaxone. NicoDerm patch in place. Heparin for DVT prophylaxis. He remains on the CIWA protocol. He did require Ativan early this morning. The patient is seen today January 13, 2024 in follow-up on the regular medical floor. He is awake and alert in no acute distress. Resting comfortably in bed. Denies any worsening shortness of breath, cough or congestion. He is maintaining O2 saturations in the 90s on room air. Laying flat in bed. Sodium 132. Potassium 4.5. Bicarb 21. BUN 65. Creatinine 8.11. Glucose 72. AST 104. ALT 175. Creatinine kinase 2293. He remains on the CIWA protocol. Remains on Seroquel. NicoDerm patch in place. Continued on antibiotics in the form of ceftriaxone. Plan is for hemodialysis today. His urine output is improving. Objective - Vital Signs Vital signs: Vital Signs Temp 98 F 01/13/24 07:00 Pulse 84 01/13/24 07:00 Resp 18 01/13/24 07:00 BP 172/83 01/13/24 07:00 Pulse Ox 98 01/13/24 07:00 FiO2 Intake & Output 01/12/24 01/13/24 01/13/24 18:59 06:59 18:59 Weight 104 kg Other: Voiding Method Urinal # Voids 3 3 # Bowel Movements 1 - Exam GENERAL EXAM: Alert, cooperative 38-year-old male, on room air, comfortable in no apparent distress. HEAD: Normocephalic. EYES: Normal reaction of pupils, equal size. NOSE: Clear with pink turbinates. THROAT: No erythema or exudates. NECK: No masses, no JVD. CHEST: No chest wall deformity. LUNGS: Equal air entry with no crackles, wheeze, rhonchi or dullness. CVS: S1 and S2 normal with no audible murmur, regular rhythm. ABDOMEN: No hepatosplenomegaly, normal bowel sounds, no guarding or rigidity. SPINE: No scoliosis or deformity SKIN: No rashes CENTRAL NERVOUS SYSTEM: No focal deficits, tone is normal in all 4 extremities. EXTREMITIES: There is no peripheral edema. No clubbing, no cyanosis. Peripheral pulses are intact. - Labs CBC & Chem 7: 01/13/24 05:50 01/13/24 10:21 Labs: Abnormal Lab Results - Last 24 Hours (Table) 01/12/24 01/12/24 01/13/24 Range/Units 13:06 15:16 05:50 RBC 2.76 L 2.75 L (4.30-5.90) m/uL Hgb 7.9 L 7.7 L (13.0-17.5) gm/dL Hct 23.4 L 23.7 L (39.0-53.0) % RDW 16.8 H 17.0 H (11.5-15.5) % Immature Gran # 0.24 H (0.00-0.04) X 10*3/uL Lymphocytes # 0.8 L (1.0-4.8) k/uL Eosinophils # 0.42 H (0.04-0.35) X 10*3/uL Sodium 130 L (137-145) mmol/L Carbon Dioxide 19 L (22-30) mmol/L Anion Gap (4.00-12.00) mmol/L BUN 60 H (9-20) mg/dL Creatinine 7.41 H* (0.66-1.25) mg/dL Est GFR (CKD-EPI) (>=60) BUN/Creatinine Ratio (12.00-20.00) Ratio Glucose (74-99) mg/dL Calcium 7.7 L (8.4-10.2) mg/dL Phosphorus (2.4-5.1) mg/dL Total Bilirubin (0.3-1.2) mg/dL AST (14-35) U/L ALT (10-49) U/L Alkaline Phosphatase (41-126) U/L Creatine Kinase (35-257) U/L Total Protein (6.2-8.2) g/dL Albumin (3.8-4.9) g/dL Albumin/Globulin Ratio (1.60-3.17) Ratio 01/13/24 01/13/24 Range/Units 05:50 10:21 RBC (4.30-5.90) m/uL Hgb (13.0-17.5) gm/dL Hct (39.0-53.0) % RDW (11.5-15.5) % Immature Gran # (0.00-0.04) X 10*3/uL Lymphocytes # (1.0-4.8) k/uL Eosinophils # (0.04-0.35) X 10*3/uL Sodium 132 L (137-145) mmol/L Carbon Dioxide 21.4 L 21 L (22-30) mmol/L Anion Gap 13.60 H (4.00-12.00) mmol/L BUN 59.3 H 65 H (9-20) mg/dL Creatinine 8.2 A* 8.11 H* (0.66-1.25) mg/dL Est GFR (CKD-EPI) 8 L (>=60) BUN/Creatinine Ratio 7.23 L (12.00-20.00) Ratio Glucose 72 L (74-99) mg/dL Calcium 8.3 L 7.8 L (8.4-10.2) mg/dL Phosphorus 6.4 H (2.4-5.1) mg/dL Total Bilirubin 0.2 L (0.3-1.2) mg/dL AST 104 H (14-35) U/L ALT 175 H (10-49) U/L Alkaline Phosphatase 40 L (41-126) U/L Creatine Kinase 2293 A* (35-257) U/L Total Protein 4.7 L (6.2-8.2) g/dL Albumin 2.7 L (3.8-4.9) g/dL Albumin/Globulin Ratio 1.35 L (1.60-3.17) Ratio Microbiology - Last 24 Hours (Table) 01/09/24 06:09 Blood Culture - Preliminary Blood Assessment and Plan Assessment: Acute alcohol withdrawal syndrome Acute metabolic encephalopathy, improved Possible bacteremia secondary to coagulase-negative staphylococci Hypothermia, resolved Acute transaminitis Acute RSV infection Acute kidney injury secondary to rhabdomyolysis requiring hemodialysis History of alcoholism History of hepatitis C History of gastroesophageal reflux disease History of IV drug abuse History of pancreatitis History of bipolar disorder and depression Plan: The patient was seen and evaluated Labs and medications reviewed Plan is for hemodialysis today Currently stable and on room air Remains on the CIWA protocol Continued on a NicoDerm patch Heparin for DVT prophylaxis Increase his activity as tolerated May require ECF placement and outpatient hemodialysis Nephrology is following closely I have personally seen and examined the patient, performed the documentation and the assessment and plan as written. Number of minutes spent on the visit: 10.
--- NOTE | 2024-01-13 13:31 | P.PN ---
Subjective Progress Note Date: 01/13/24 patient is a 38-year-old gentleman past medical significant for alcohol abuse, liver disease who presented to the ER for altered mental status. Patient has a history of alcohol abuse and has multiple admissions to this hospital for alcohol detox. Patient was brought in the ED by EMS after being found lying facedown in snow. There was no obvious sign of any trauma. Patient was unable to respond to any questions. EMS brought him immediately to the ER Initial lab work done in the ER showed WBC 22, hemoglobin 16.4, platelet count 274, sodium 152, potassium 5.1, BUN 38, creatinine 3.47, glucose 105, bilirubin 0.7, AST 1723, ALT 399, troponin 2.39 EKG done in the ER showed heart rate of 125, no ST segment elevation or depression seen, no T-wave inversions seen. Chest x-ray done in the ER showed no acute cardiopulmonary process CT head done showed no acute intracranial process CT cervical spine negative for any acute fracture or dislocation Patient admitted to internal medicine service. On my interview with patient, patient was much more responsive, kept on asking about getting soda and water. Stated that he has been laying on the ground for more than 15 hours. Patient is currently running a fever. Denies any chest pain or shortness of breath. Complaining of generalized body aches 01/05. Patient seen and examined. Blood work done this morning showed WBC 10.5, hemoglobin 9.8, platelet count 137, sodium 132, potassium 3.8, BUN 60, creatinine 4.02, calcium 6, CK greater than [id number]. 2D echo done showed LVEF of 50 to 55%, no mitral regurg, trace tricuspid regurg 01/06. Patient seen and examined. Currently in restraints. Currently getting dialysis. Complaining of pain in his tongue, apparently bit his tongue during the fall. 01/07. Patient seen and examined. Continues to be in ICU. Currently on Precedex and IV fluids. Patient currently off restraints, is alert to self. 01/08. Patient seen and examined.Blood work done this morning showed WBC 8.7, hemoglobin 9.3, sodium 137, potassium 4.7, BUN 66, creatinine 6.25, AST is 1516, ALT is 546, currently on 2 L of oxygen. Patient is alert, answering questions, currently on Precedex drip. 01/09/2024 Patient is in MICU. Currently lying in the bed. Awake and alert but lethargic and drowsy. Currently on room air. Tolerating oral diet. Laboratory data showed WBC 7.4 hemoglobin 7.8 and platelets 124, sodium 1:30 p otassium 3.6 chloride 103 bicarb is 22 BUN 59 and creatinine 5.67 01/10/2024 Patient is in the MICU. Awake alert and oriented. Seems to be more awake today. On room air. No complaints of chest pain or shortness breath. Patient does have good oral input. No fever no chills. Laboratory data showed WBC 6.7 hemoglobin 8.0 and platelets 136, sodium 1:30 potassium 3.3 chloride 103 bicarb is 26 BUN 40 and creatinine trending down to 4.63 today. Calcium 7.1 and pro calcitonin was 1.46. Patient is on antibiotics ceftriaxone. ID, nephrology and pulmonary is on board. 01/11/2024 Patient is resting in the bed. On room air. Able to ambulate in the room. Patient is being transferred to ICU. Urine output has been improving. Last hemodialysis on 01/09/2024. Patient has been afebrile. Repeat blood cultures negative. Laboratory data showed no illicit 5.9 hemoglobin 9.2 and platelets 154 sodium 133 potassium 2.3 and chloride 103 and bicarb 23 BUN 53 and creatinine 6.39. Patient is on normal saline at 40 mL per hour. On antibiotics ceftriaxone. 01/12/2024 Patient is currently in the telemetry unit. Patient is lying in the bed. Awake alert and orient x 3. No complaints of chest pain. Denies any worsening shortness of breath. No cough or sputum function. Patient is being cannula antibiotics ceftriaxone. Currently on IV hydration with normal saline at 40 cc/h. Patient is tolerating dysphagia level 3 diet. Laboratory pressure WBC 7.0 hemoglobin 7.9 and platelets 211 Sodium 130 potassium 4.2 chloride 104 bicarb is 19 BUN 16 creatinine went up to 7.41 again today. 01/13. Patient seen and examined. Patient has swelling of upper extremities, states he is making urine. Patient is calm. Alert and oriented. REVIEW OF SYSTEMS: CONSTITUTIONAL: No fever, no malaise,. CARDIOVASCULAR: No chest pain, no palpitations, no syncope. PULMONARY: No shortness of breath, no cough, GASTROINTESTINAL: No diarrhea, no nausea, no vomiting, no abdominal pain. NEUROLOGICAL: No headaches, no weakness, PHYSICAL EXAMINATION: GENERAL: The patient is alert and oriented x3, not in any acute distress. Well developed, well nourished. HEENT: Pupils are round and equally reacting to light. EOMI. No scleral icterus. No conjunctival pallor. Normocephalic, atraumatic. No pharyngeal erythema. No thyromegaly. CARDIOVASCULAR: S1 and S2 present. No murmurs, rubs, or gallops. PULMONARY: Chest is clear to auscultation, no wheezing or crackles. ABDOMEN: Soft, nontender, nondistended, normoactive bowel sounds. No palpable organomegaly. MUSCULOSKELETAL: Swelling of upper extremities noticeable EXTREMITIES: No cyanosis, clubbing,. NEUROLOGICAL: Gross neurological examination did not reveal any focal deficits. SKIN: No rashes. Assessment and plan Acute metabolic encephalopathy. Improving. Acute kidney injury secondary to ATN due to infection and rhabdomyolysis. requiring hemodialysis. Started on 01/05/2024. Patient had last hemodialysis on 01/09/2024 Gram-positive Bacteremia. Coagulase-negative staph. Repeat blood cultures negative. Sepsis Acute Rhabdomyolysis secondary to fall Hypothermia Hypernatremia. Resolved. Hypocalcemia secondary to acute kidney injury and rhabdomyolysis. Leukocytosis Elevated troponin level. Ratio of CPK and troponin suggest skeletal muscle injury pattern in the sitting up acute right. Acute transaminitis Fall History of alcohol abuse Acute alcohol withdrawal symptoms History of depression Monitor vital signs Monitor CBC Monitor CMP Continue telemetry monitoring Follow-up on blood cultures 2D echo done showed LVEF of 50 to 55%, no mitral regurg, trace tricuspid regurg Avoid nephrotoxic agent Avoid hepatotoxic agents Strict I's and O's, daily weights Continue IV Rocephin . patient is status post LP with CSF culture negative. Continue CIWA protocol continue thiamine and folic acid Nephrology following, going for dialysis today ID following Pulmonology following Labs and medication were reviewed.. Continue same treatment. Continue with symptomatic treatment. Resume home medication. Monitor labs and vitals. DVT and GI prophylaxis. Further recommendations as per clinical course of the patient Dictation was produced using [employer] dictation software. please excuse any grammatical, word or spelling errors. Objective - Vital Signs Vital signs: Vital Signs Temp 98 F 01/13/24 07:00 Pulse 84 01/13/24 07:00 Resp 18 01/13/24 07:00 BP 172/83 01/13/24 07:00 Pulse Ox 98 01/13/24 07:00 FiO2 Intake & Output 01/12/24 01/13/24 01/13/24 18:59 06:59 18:59 Weight 104 kg Other: Voiding Method Urinal # Voids 3 3 # Bowel Movements 1 - Labs CBC & Chem 7: 01/13/24 05:50 01/13/24 10:21 Labs: Abnormal Lab Results - Last 24 Hours (Table) 01/12/24 01/12/24 01/13/24 Range/Units 13:06 15:16 05:50 RBC 2.76 L (4.30-5.90) m/uL Hgb 7.9 L (13.0-17.5) gm/dL Hct 23.4 L (39.0-53.0) % RDW 16.8 H (11.5-15.5) % Lymphocytes # 0.8 L (1.0-4.8) k/uL Sodium 130 L (137-145) mmol/L Carbon Dioxide 19 L 21.4 L (22-30) mmol/L Anion Gap 13.60 H (4.00-12.00) mmol/L BUN 60 H 59.3 H (9-20) mg/dL Creatinine 7.41 H* 8.2 A* (0.66-1.25) mg/dL Est GFR (CKD-EPI) 8 L (>=60) BUN/Creatinine Ratio 7.23 L (12.00-20.00) Ratio Glucose (74-99) mg/dL Calcium 7.7 L 8.3 L (8.4-10.2) mg/dL Phosphorus 6.4 H (2.4-5.1) mg/dL Total Bilirubin 0.2 L (0.3-1.2) mg/dL AST 104 H (14-35) U/L ALT 175 H (10-49) U/L Alkaline Phosphatase 40 L (41-126) U/L Creatine Kinase 2293 A* (35-257) U/L Total Protein 4.7 L (6.2-8.2) g/dL Albumin 2.7 L (3.8-4.9) g/dL Albumin/Globulin Ratio 1.35 L (1.60-3.17) Ratio 01/13/24 Range/Units 10:21 RBC (4.30-5.90) m/uL Hgb (13.0-17.5) gm/dL Hct (39.0-53.0) % RDW (11.5-15.5) % Lymphocytes # (1.0-4.8) k/uL Sodium 132 L (137-145) mmol/L Carbon Dioxide 21 L (22-30) mmol/L Anion Gap (4.00-12.00) mmol/L BUN 65 H (9-20) mg/dL Creatinine 8.11 H* (0.66-1.25) mg/dL Est GFR (CKD-EPI) (>=60) BUN/Creatinine Ratio (12.00-20.00) Ratio Glucose 72 L (74-99) mg/dL Calcium 7.8 L (8.4-10.2) mg/dL Phosphorus (2.4-5.1) mg/dL Total Bilirubin (0.3-1.2) mg/dL AST (14-35) U/L ALT (10-49) U/L Alkaline Phosphatase (41-126) U/L Creatine Kinase (35-257) U/L Total Protein (6.2-8.2) g/dL Albumin (3.8-4.9) g/dL Albumin/Globulin Ratio (1.60-3.17) Ratio Microbiology - Last 24 Hours (Table) 01/09/24 06:09 Blood Culture - Preliminary Blood
--- NOTE | 2024-01-14 11:35 | P.PN ---
Subjective Patient is seen for follow-up for acute kidney injury. He was started on hemodialysis on 01/05/2024 for oliguric ATN and severe rhabdomyolysis. Urine output has improved significantly but serum creatinine remains elevated. Hemodialysis was on hold after 01/09/2024 but patient received a treatment yesterday, 01/13/2024 due to worsening creatinine. Strong indication for recovering renal function given the significant increase in urine output. Objective - Vital Signs Vital signs: Vital Signs Temp 98.3 F 01/14/24 07:13 Pulse 80 01/14/24 07:13 Resp 18 01/14/24 07:13 BP 174/82 01/14/24 07:13 Pulse Ox 96 01/14/24 07:13 FiO2 Intake & Output 01/13/24 01/14/24 01/14/24 18:59 06:59 18:59 Intake Total 690 Output Total 900 Balance -210 Weight 106.5 kg Intake: IV 240 Sodium Chloride 0.9% 1, 240 000 ml @ 40 mls/hr IV . Q24H [facility] Rx#:[id number] Intake, IV Titration 50 Amount cefTRIAXone 2 gm In 50 Sodium Chloride 0.9% 50 ml @ 100 mls/hr IVPB Q24HR [facility] Rx#:[id number] Hemodialysis 400 Output: Hemodialysis 900 Other: Voiding Method Urinal # Voids 3 3 - Exam Patient is sleeping but arousable Examination of the heart S1 and S2 Examination of the lungs bilateral breath sounds are heard Abdomen is soft nontender Examination of lower extremity shows no significant edema Patient is moving all 4 extremities. Answers simple questions appropriately - Labs CBC & Chem 7: 01/13/24 05:50 01/13/24 10:21 Labs: Abnormal Lab Results - Last 24 Hours (Table) 01/13/24 01/13/24 Range/Units 05:50 05:50 RBC 2.75 L (4.40-5.60) X 10*6/uL Hgb 7.7 L (13.0-17.0) g/dL Hct 23.7 L (39.6-50.0) % RDW 17.0 H (11.5-14.5) % Immature Gran # 0.24 H (0.00-0.04) X 10*3/uL Eosinophils # 0.42 H (0.04-0.35) X 10*3/uL Carbon Dioxide 21.4 L (21.6-31.8) mmol/L Anion Gap 13.60 H (4.00-12.00) mmol/L BUN 59.3 H (9.0-27.0) mg/dL Creatinine 8.2 A* (0.6-1.5) mg/dL Est GFR (CKD-EPI) 8 L (>=60) BUN/Creatinine Ratio 7.23 L (12.00-20.00) Ratio Calcium 8.3 L (8.7-10.3) mg/dL Total Bilirubin 0.2 L (0.3-1.2) mg/dL AST 104 H (14-35) U/L ALT 175 H (10-49) U/L Alkaline Phosphatase 40 L (41-126) U/L Creatine Kinase 2293 A* (35-257) U/L Total Protein 4.7 L (6.2-8.2) g/dL Albumin 2.7 L (3.8-4.9) g/dL Albumin/Globulin Ratio 1.35 L (1.60-3.17) Ratio Microbiology - Last 24 Hours (Table) 01/08/24 17:22 Blood Culture - Final Blood Assessment and Plan Assessment: 1. Acute kidney injury secondary to ATN secondary to severe sepsis and rhabd omyolysis. Baseline creatinine 0.5-0.6 and up to 4.02 on 01/05/24 and started HD. Urine output is slightly improved.. No hydronephrosis noted on abdominal ultrasound. Hemodialysis on hold however serum creatinine is slowly increasing. Hemodialysis has been on hold since 01/09/2024 but patient received treatment yesterday, 01/13/2024 for worsening creatinine levels 2. Rhabdomyolysis secondary to fall/immobility. CK level greater [place] 160,[place] [id number] 3. Severe sepsis secondary to gram-positive bacteremia. On IV antibiotics. 4. Metabolic acidosis secondary to acute kidney injury. 5. Initially hypernatremia, now mildly hyponatremic at 133. 6. Hypocalcemia secondary to acute kidney injury and rhabdomyolysis. Improved. 7. Non-gap metabolic acidosis secondary to severe acute kidney injury and rhabdomyolysis Plan: Continue to monitor labs closely for recovery of renal function and we will try to hold off dialysis unless absolutely indicated. Continue to avoid nephrotoxic agents
--- NOTE | 2024-01-14 11:44 | P.PN ---
Subjective Progress Note Date: 01/14/24 This is a 38-year-old white male with history of multiple medical problems including alcoholism, hepatitis C, hypertension, GERD, patient was brought into the ER yesterday after he was noted to be face down in the snow, upon EMS arrival, the patient was hypothermic, and altered mental status. In the ER, the patient was noted to have temp of 102.6, he was tachycardic, and was not hypotensive or hypoxic. Workup in the ER included CBC which showed leukocytosis. His bicarb was noted to be low, patient was noted to have anion gap metabolic acidosis, he was also noted to have renal failure with a BUN of 51 creatinine 3.45. His CPK was significantly elevated almost 92,000, troponin elevated at 1.6, and liver enzymes were also elevated including AST and ALT. There was evidence of blood in the urine. No drug screen was done at the time of arrival, but his alcohol level was less than 10. His RSV PCR was positive. Drug screen in the ICU was positive for barbiturates, amphetamine, methamphetamine, and benzodiazepines. Patient was seen by many consultants including infectious disease, patient was started empirically on antibiotics in the form of Rocephin and vancomycin, and infectious disease recommended a lumbar puncture on this patient. Initial chemistry on the spinal fluid seems to be unremarkable. Final report is pending. His blood cultures today are positive for gram-positive cocci in clusters. Patient was seen by nephrology today, and recommending starting the patient on hemodialysis. Patient was felt to have acute kidney injury secondary to ATN, and severe sepsis and rhabdomyolysis, oliguric, unresponsive to diuretics, and there was no hydronephrosis on the abdominal ultrasound. At any rate patient is scheduled to have a dialysis catheter placement today. Last night the patient was on the regular medical floor, I was made aware of this patient because his CIWA score was 20,, patient was already on a bicarb drip, and I have recommended transferring the patient o ut of the floor to the ICU saw this patient this morning, reviewed all his labs and workup, remains on bicarb drip, empirically on antibiotics for his presumptive severe sepsis and bacteremia as noted on blood cultures today, patient continues to have significantly elevated CPK, continues to have wo rsening renal failure. Blood pressure was high and I recommended Cleviprex at 2 mg/h. Also recommended a drug screen to be done. Patient did not require Precedex, he is agitation is well-controlled with Ativan. According to the patient his last alcohol drink was 2 days ago. Patient is not a great historian, seems to mumble but does not give adequate history. And he is by all means encephalopathic. But able to protect his airways, and able to cough and clear secretions. Hence did not feel the need to intubate this patient at this point. Procalcitonin level this morning is 45.9 Patient was reevaluated today on 01/06/2024, his blood cultures are actually now coagulase-negative staph, most likely blood cultures are contaminated. Patient is still restless and agitated easily, remains in the ICU, he will be undergoing dialysis today, he had dialysis yesterday. Complaining of hurting all over, patient remains a bit confused, and lethargic. His creatinine is high at 4.3, hemoglobin is down from 16.3 on admission now 10.3, platelets are coming down, hence I am stopping his heparin. CPK remains high at 158,000, patient is still receiving fluids at 200 cc/h, and he will have more dialysis today. Patient is extremely oliguric. Liver enzymes are also elevated with a AST of 2498, and ALT 573, improving compared to yesterday Patient was reevaluated today on 01/07/2024, remains in the ICU, marginal at best. On 3 L nasal cannula, remains a bit encephalopathic with a slight imp rovement in his overall mental status patient knows that he is at [facility], he realized the year is 2023. Patient continues to have marginal urine output, he is oliguric, intermittently on hemodialysis, patient remains on daptomycin and ceftriaxone, blood cultures were contaminated with staph/coagulase negative. Spinal fluid cultures have been negative CPK is coming down today, he is down to 89,000 from 159,000 yesterday. Renal functioning is about the same with a creatinine 4.60 and BUN of 49, Liver enzymes are steadily improving. And ammonia level is less than 90. His IV fluid remains at 200 cc/h patient is receiving MVI. Progress note dated January 08, 2024. 38-year-old male who was admitted to the hospital on 04 January. The patient came to the intensive care unit on the . Currently, the patient is seen today in room 255. The patient is on room air. He is getting saline at 130 cc an hour. He continues on dexmedetomidine at 0.4 mcg/kg/h. The patient has had hemodialysis, twice, but is planning to have hemodialysis again today. Will add some Haldol, Seroquel, and clonidine patch to his regimen, to get him off the dexmedetomidine. Current labs include white count 8.7, hemoglobin 9.3, hematocrit 27.8, and platelet count 108,000. Sodium 131, potassium 4.7, chlorides 105, CO2 14, anion gap 12, BUN 66, creatinine 6.25. AST is 1516. ALT is 546. CK is down from 89,000, to 73,807. Blood cultures are positive for coag negative staph. No chest x-ray to report on. Progress note dated January 09, 2024. 38-year-old male who was admitted to the hospital on January 04. The patient came to the intensive care unit, on the . Currently, the patient is seen today in room 255. The patient continues on room air. The patient is getting saline at 75 cc an hour. He will have another hemodialysis session today, which is #4. Yesterday, he had hemodialysis, and 2 L was removed. He is currently off the dexmedetomidine. White count 7.4, hemoglobin 7.8, hematocrit 22.8, platelet count 124,000. Sodium 130, potassium 3.6, chlorides 103, CO2 22, BUN 59, creatinine 5.67. His calcium is 7.0. Blood cultures were positive for coag negative staph. Progress note dated January 10, 2024. 38-year-old male again seen today in room 255, the intensive care unit. Currently, the patient is on room air. He is getting saline at 40 cc an hour. According to his nurse, he had an uneventful night. In our opinion, the patient is stable to be transferred out of the intensive care unit. Current labs include a white count of 6.7, hemoglobin 8, hematocrit 23.9, and a platelet count of 136,000. Sodium 130, potassium 3.3, chlorides 103, CO2 26, BUN 40, creatinine 4.63. His CK is down to 36,783. Procalcitonin level is 1.46. Progress note dated January 11, 2024. 38-year-old male seen again in room 255. The patient is currently doing better. The patient is on room air. He is getting saline at 40 cc an hour. According to his nurse, the patient had an uneventful night. The patient is calm, and not agitated. No new labs today. Chest x-ray suggest some bilateral subsegmental atelectasis. The patient is seen today January 12, 2024 in follow-up on the regular medical floor. He is currently resting comfortably in bed. Awake and alert in no acute distress. Maintaining O2 saturation in the 90s on room air. No IV fluids. He has been calm and cooperative. Follow-up blood cultures revealed no growth. Cerebrospinal fluid cultures revealed no growth. No new labs today. He remains on ceftriaxone. NicoDerm patch in place. Heparin for DVT prophylaxis. He remains on the CIWA protocol. He did require Ativan early this morning. The patient is seen today January 13, 2024 in follow-up on the regular medical floor. He is awake and alert in no acute distress. Resting comfortably in bed. Denies any worsening shortness of breath, cough or congestion. He is maintaining O2 saturations in the 90s on room air. Laying flat in bed. Sodium 132. Potassium 4.5. Bicarb 21. BUN 65. Creatinine 8.11. Glucose 72. AST 104. ALT 175. Creatinine kinase 2293. He remains on the CIWA protocol. Remains on Seroquel. NicoDerm patch in place. Continued on antibiotics in the form of ceftriaxone. Plan is for hemodialysis today. His urine output is improving. The patient is seen today January 14, 2024 in follow-up on the regular medical floor. He is laying flat in bed. Awake and alert in no acute distress. No worsening shortness of breath, cough or congestion. He has been calm and cooperative. Follow-up blood cultures revealed no growth. Cerebrospinal fluid cultures revealed no growth. Today's labs are pending. Urine output has been increasing. Nephrology is following and plans to try to hold off dialysis for now. Avoiding nephrotoxic medications. He remains on antibiotics in the form of ceftriaxone. Heparin for DVT prophylaxis. NicoDerm patch in place. Continued on Seroquel. Still requiring occasional Ativan. Objective - Vital Signs Vital signs: Vital Signs Temp 98.3 F 01/14/24 07:13 Pulse 80 02/25/24 07:13 Resp 18 01/14/24 07:13 BP 174/82 01/14/24 07:13 Pulse Ox 96 01/14/24 07:13 FiO2 Intake & Output 01/13/24 01/14/24 01/14/24 18:59 06:59 18:59 Intake Total 690 Output Total 900 Balance -210 Weight 106.5 kg Intake: IV 240 Sodium Chloride 0.9% 1, 240 000 ml @ 40 mls/hr IV . Q24H [facility] Rx#:[id number] Intake, IV Titration 50 Amount cefTRIAXone 2 gm In 50 Sodium Chloride 0.9% 50 ml @ 100 mls/hr IVPB Q24HR [facility] Rx#:[id number] Hemodialysis 400 Output: Hemodialysis 900 Other: Voiding Method Urinal # Voids 3 3 - Exam GENERAL EXAM: Alert, calm, cooperative 38-year-old male, on room air, in no apparent distress. HEAD: Normocephalic. EYES: Normal reaction of pupils, equal size. NOSE: Clear with pink turbinates. THROAT: No erythema or exudates. NECK: No masses, no JVD. CHEST: No chest wall deformity. LUNGS: Equal air entry with no crackles, wheeze, rhonchi or dullness. CVS: S1 and S2 normal with no audible murmur, regular rhythm. ABDOMEN: No hepatosplenomegaly, normal bowel sounds, no guarding or rigidity. SPINE: No scoliosis or deformity SKIN: No rashes CENTRAL NERVOUS SYSTEM: No focal deficits, tone is normal in all 4 extremities. EXTREMITIES: There is no peripheral edema. No clubbing, no cyanosis. Peripheral pulses are intact. - Labs CBC & Chem 7: 01/13/24 05:50 01/13/24 10:21 Labs: Abnormal Lab Results - Last 24 Hours (Table) 01/13/24 Range/Units 05:50 RBC 2.75 L (4.40-5.60) X 10*6/uL Hgb 7.7 L (13.0-17.0) g/dL Hct 23.7 L (39.6-50.0) % RDW 17.0 H (11.5-14.5) % Immature Gran # 0.24 H (0.00-0.04) X 10*3/uL Eosinophils # 0.42 H (0.04-0.35) X 10*3/uL Microbiology - Last 24 Hours (Table) 01/08/24 17:22 Blood Culture - Final Blood Assessment and Plan Assessment: Acute alcohol withdrawal syndrome Acute metabolic encephalopathy, improved Possible bacteremia secondary to coagulase-negative staphylococci Hypothermia, resolved Acute transaminitis Acute RSV infection Acute kidney injury secondary to rhabdomyolysis requiring hemodialysis History of alcoholism History of hepatitis C History of gastroesophageal reflux disease History of IV drug abuse History of pancreatitis History of bipolar disorder and depression Plan: The patient was seen and evaluated Medications reviewed No plan is for hemodialysis today Currently stable and on room air Remains on the CIWA protocol Increase his activity as tolerated May require ECF placement and outpatient hemodialysis Nephrology is following We will continue to follow I have personally seen and examined the patient, performed the documentation and the assessment and plan as written. Number of minutes spent on the visit: 10.
[2024-01-14] MEDS: HYDROcodone/APAP 5-325MG 1 EACH TAB PO PRN (12:21)
--- NOTE | 2024-01-14 13:09 | P.PN ---
Subjective Progress Note Date: 01/14/24 patient is a 38-year-old gentleman past medical significant for alcohol abuse, liver disease who presented to the ER for altered mental status. Patient has a history of alcohol abuse and has multiple admissions to this hospital for alcohol detox. Patient was brought in the ED by EMS after being found lying facedown in snow. There was no obvious sign of any trauma. Patient was unable to respond to any questions. EMS brought him immediately to the ER Initial lab work done in the ER showed WBC 22, hemoglobin 16.4, platelet count 274, sodium 152, potassium 5.1, BUN 38, creatinine 3.47, glucose 105, bilirubin 0.7, AST 1723, ALT 399, troponin 2.39 EKG done in the ER showed heart rate of 125, no ST segment elevation or depression seen, no T-wave inversions seen. Chest x-ray done in the ER showed no acute cardiopulmonary process CT head done showed no acute intracranial process CT cervical spine negative for any acute fracture or dislocation Patient admitted to internal medicine service. On my interview with patient, patient was much more responsive, kept on asking about getting soda and water. Stated that he has been laying on the ground for more than 15 hours. Patient is currently running a fever. Denies any chest pain or shortness of breath. Complaining of generalized body aches 01/05. Patient seen and examined. Blood work done this morning showed WBC 10.5, hemoglobin 9.8, platelet count 137, sodium 132, potassium 3.8, BUN 60, creatinine 4.02, calcium 6, CK greater than [id number]. 2D echo done showed LVEF of 50 to 55%, no mitral regurg, trace tricuspid regurg 01/06. Patient seen and examined. Currently in restraints. Currently getting dialysis. Complaining of pain in his tongue, apparently bit his tongue during the fall. 01/07. Patient seen and examined. Continues to be in ICU. Currently on Precedex and IV fluids. Patient currently off restraints, is alert to self. 01/08. Patient seen and examined.Blood work done this morning showed WBC 8.7, hemoglobin 9.3, sodium 137, potassium 4.7, BUN 66, creatinine 6.25, AST is 1516, ALT is 546, currently on 2 L of oxygen. Patient is alert, answering questions, currently on Precedex drip. 01/09/2024 Patient is in MICU. Currently lying in the bed. Awake and alert but lethargic and drowsy. Currently on room air. Tolerating oral diet. Laboratory data showed WBC 7.4 hemoglobin 7.8 and platelets 124, sodium 1:30 p otassium 3.6 chloride 103 bicarb is 22 BUN 59 and creatinine 5.67 01/10/2024 Patient is in the MICU. Awake alert and oriented. Seems to be more awake today. On room air. No complaints of chest pain or shortness breath. Patient does have good oral input. No fever no chills. Laboratory data showed WBC 6.7 hemoglobin 8.0 and platelets 136, sodium 1:30 potassium 3.3 chloride 103 bicarb is 26 BUN 40 and creatinine trending down to 4.63 today. Calcium 7.1 and pro calcitonin was 1.46. Patient is on antibiotics ceftriaxone. ID, nephrology and pulmonary is on board. 01/11/2024 Patient is resting in the bed. On room air. Able to ambulate in the room. Patient is being transferred to ICU. Urine output has been improving. Last hemodialysis on 01/09/2024. Patient has been afebrile. Repeat blood cultures negative. Laboratory data showed no illicit 5.9 hemoglobin 9.2 and platelets 154 sodium 133 potassium 2.3 and chloride 103 and bicarb 23 BUN 53 and creatinine 6.39. Patient is on normal saline at 40 mL per hour. On antibiotics ceftriaxone. 01/12/2024 Patient is currently in the telemetry unit. Patient is lying in the bed. Awake alert and orient x 3. No complaints of chest pain. Denies any worsening shortness of breath. No cough or sputum function. Patient is being cannula antibiotics ceftriaxone. Currently on IV hydration with normal saline at 40 cc/h. Patient is tolerating dysphagia level 3 diet. Laboratory pressure WBC 7.0 hemoglobin 7.9 and platelets 211 Sodium 130 potassium 4.2 chloride 104 bicarb is 19 BUN 16 creatinine went up to 7.41 again today. 01/13. Patient seen and examined. Patient has swelling of upper extremities, states he is making urine. Patient is calm. Alert and oriented. 01/14. Patient seen and examined. Patient was sitting in the chair, stated he took a shower this morning feels much better compared to yesterday. Denies any fever or chills. Vital signs stable REVIEW OF SYSTEMS: CONSTITUTIONAL: No fever, no malaise,. CARDIOVASCULAR: No chest pain, no palpitations, no syncope. PULMONARY: No shortness of breath, no cough, GASTROINTESTINAL: No diarrhea, no nausea, no vomiting, no abdominal pain. NEUROLOGICAL: No headaches, no weakness, PHYSICAL EXAMINATION: GENERAL: The patient is alert and oriented x3, not in any acute distress. Well developed, well nourished. HEENT: Pupils are round and equally reacting to light. EOMI. No scleral icterus. No conjunctival pallor. Normocephalic, atraumatic. No pharyngeal erythema. No thyromegaly. CARDIOVASCULAR: S1 and S2 present. No murmurs, rubs, or gallops. PULMONARY: Chest is clear to auscultation, no wheezing or crackles. ABDOMEN: Soft, nontender, nondistended, normoactive bowel sounds. No palpable organomegaly. MUSCULOSKELETAL: Swelling of upper extremities noticeable EXTREMITIES: No cyanosis, clubbing,. NEUROLOGICAL: Gross neurological examination did not reveal any focal deficits. SKIN: No rashes. Assessment and plan Acute metabolic encephalopathy. Improving. Acute kidney injury secondary to ATN due to infection and rhabdomyolysis. requiring hemodialysis. Started on 01/05/2024. Patient had last hemodialysis on 01/09/2024 Gram-positive Bacteremia. Coagulase-negative staph. Repeat blood cultures negative. Sepsis Acute Rhabdomyolysis secondary to fall Hypothermia Hypernatremia. Resolved. Hypocalcemia secondary to acute kidney injury and rhabdomyolysis. Leukocytosis Elevated troponin level. Ratio of CPK and troponin suggest skeletal muscle injury pattern in the sitting up acute right. Acute transaminitis Fall History of alcohol abuse Acute alcohol withdrawal symptoms History of depression Monitor vital signs Monitor CBC Monitor CMP Continue telemetry monitoring Follow-up on blood cultures 2D echo done showed LVEF of 50 to 55%, no mitral regurg, trace tricuspid regurg Avoid nephrotoxic agent Avoid hepatotoxic agents Continue Coreg, clonidine patch Strict I's and O's, daily weights Continue IV Rocephin . patient is status post LP with CSF culture negative. Continue CIWA protocol continue thiamine and folic acid Nephrology following, received run of dialysis on 01/13, waiting on further rounds of dialysis depending upon patient renal functions ID following Pulmonology following Labs and medication were reviewed.. Continue same treatment. Continue with symptomatic treatment. Resume home medication. Monitor labs and vitals. DVT and GI prophylaxis. Further recommendations as per clinical course of the patient Dictation was produced using [employer] dictation software. please excuse any grammatical, word or spelling errors. Objective - Vital Signs Vital signs: Vital Signs Temp 98.3 F 01/14/24 07:13 Pulse 80 01/14/24 07:13 Resp 18 01/14/24 07:13 BP 174/82 01/14/24 07:13 Pulse Ox 96 01/14/24 07:13 FiO2 Intake & Output 01/13/24 01/14/24 01/14/24 18:59 06:59 18:59 Intake Total 690 Output Total 900 1 Balance -210 -1 Weight 106.5 kg Intake: IV 240 Sodium Chloride 0.9% 1, 240 000 ml @ 40 mls/hr IV . Q24H [facility] Rx#:[id number] Intake, IV Titration 50 Amount cefTRIAXone 2 gm In 50 Sodium Chloride 0.9% 50 ml @ 100 mls/hr IVPB Q24HR [facility] Rx#:[id number] Hemodialysis 400 Output: Stool 1 Hemodialysis 900 Other: Voiding Method Urinal Toilet # Voids 3 3 - Labs CBC & Chem 7: 01/13/24 05:50 01/13/24 10:21 Labs: Microbiology - Last 24 Hours (Table) 01/09/24 06:09 Blood Culture - Final Blood 01/08/24 17:22 Blood Culture - Final Blood
--- NOTE | 2024-01-14 14:31 | P.PN ---
Subjective Progress Note Date: 01/14/24 Principal diagnosis: Reason for follow-up is fever and a positive blood culture Patient is a 38-year-old male with a past medical history of GERD for hypertension hepatitis C pancreatitis reflux history of alcoholism patient was brought into the ER by EMS after apparently the patient was noticed to be facedown in the snow when the EMS got him up he was unable to speak patient was hypothermic and subsequently brought into the ER for further evaluation, on arrival to the ER the patient did have a fever did have elevated white count chest x-ray UA was negative abdominal soft LP was done last night which came back negative as well. On today's evaluation that is 01/14/2024, Patient is afebrile ,patient is currently on room air and denies having any shortness of breath, the patient denies any chest pain, occasional cough, the patient denies any nausea vomiting did not have any abdominal pain and no diarrhea. No lab work today blood culture repeat negative Objective - Vital Signs Vital signs: Vital Signs Temp 98.3 F 01/14/24 07:13 Pulse 80 01/14/24 07:13 Resp 18 01/14/24 07:13 BP 174/82 01/14/24 07:13 Pulse Ox 96 01/14/24 07:13 FiO2 Intake & Output 01/13/24 01/14/24 01/14/24 18:59 06:59 18:59 Intake Total 690 Output Total 900 1 Balance -210 -1 Weight 106.5 kg Intake: IV 240 Sodium Chloride 0.9% 1, 240 000 ml @ 40 mls/hr IV . Q24H [facility] Rx#:[id number] Intake, IV Titration 50 Amount cefTRIAXone 2 gm In 50 Sodium Chloride 0.9% 50 ml @ 100 mls/hr IVPB Q24HR [facility] Rx#:[id number] Hemodialysis 400 Output: Stool 1 Hemodialysis 900 Other: Voiding Method Urinal Toilet # Voids 3 3 - Exam GENERAL DESCRIPTION: Middle-age male lying in bed in no distress RESPIRATORY SYSTEM: Unlabored breathing , decreased breath sounds at bases HEART: S1 S2 regular rate and rhythm , ABDOMEN: Soft , no tenderness EXTREMITIES: No edema feet - Labs CBC & Chem 7: 01/13/24 05:50 01/13/24 10:21 Labs: Microbiology - Last 24 Hours (Table) 01/09/24 06:09 Blood Culture - Final Blood 01/08/24 17:22 Blood Culture - Final Blood Assessment and Plan (1) Fever with leukocytosis and leukocyte count greater than or equal to 20,000 Current Visit: Yes Status: Acute Code(s): D72.829 - ELEVATED WHITE BLOOD CELL COUNT, UNSPECIFIED SNOMED Code(s): 532945934 (2) Positive blood culture Current Visit: No Status: Acute Code(s): R78.81 - BACTEREMIA SNOMED Code(s): 584479222 Plan: 1patient presented hospital with episode of unresponsiveness by the EMS patient did have features of sepsis running a fever did have elevated white count, initial workup including a chest x-ray and UA has been negative the patient abdominal was soft on clinical examination and there was no evidence of any cellulitis with a question of possible PRESS OFFICER infection however the patient did have LP completed last night by ER physician and is negative 2-patient with a positive blood culture with coagulase-negative staph with concern for possible vs contamination repeat blood culture negative, daptomycin was discontinued as of 01/11/2024 3-patient did have elevated procalcitonin, repeat chest x-ray with mild lateral subsegmental areas of consolidation 4-patient remains to be afebrile, did have improvement his respiratory status, will continue the patient on Rocephin while inpatient and monitor clinical course closely Dictation was produced using [employer] dictation software. please excuse any grammatical, word or spelling errors. Time with Patient: Less than 30
[2024-01-14] MEDS: MELATONIN 3 MG TABLET PO PRN (21:51)
[2024-01-15 08:24] LABS: HCT 21.2 % (39.6-50.0); MCH 27.9 pg (27.0-32.0); MCV 84.5 FL (80.0-97.0); Mean Platelet Volume 11.1 FL (9.5-12.2); NRBC Per 100 WBC 0 X 10*3/uL (0.00-0.01); Platelet Count 287 X 10*3/uL (140-440); RBC 2.51 X 10*6/uL (4.40-5.60); RDW 16.9 % (11.5-14.5); WBC 12.36 X 10*3/uL (4.50-10.00)
[2024-01-15 08:36] LABS: BUN/Creat Ratio 7.26 Ratio (12.00-20.00); Blood Urea Nitrogen 50.8 mg/dL (9.0-27.0); Chloride 105 mmol/L (96-109); Glucose 80 mg/dL (70-110); Potassium 5.1 mmol/L (3.5-5.5); Sodium 140 mmol/L (135-145)
[2024-01-15 08:37] LABS: ALT 125 U/L (10-49); AST 75 U/L (14-35); Albumin 3.1 g/dL (3.8-4.9); Albumin/Globulin Ratio 1.35 Ratio (1.60-3.17); Alkaline Phosphatase 49 U/L (41-126); Carbon Dioxide 19.4 mmol/L (21.6-31.8); Globulin 2.3 g/dL (1.6-3.3); Total Bilirubin 0.4 mg/dL (0.3-1.2); Total Protein 5.4 g/dL (6.2-8.2)
--- NOTE | 2024-01-15 10:57 | P.PN ---
Subjective Patient is seen in follow-up for acute kidney injury. Creatinine 7.0 today. Last hemodialysis January 13, 2024. Has been voiding but strict I's and O's not done. Vital signs are stable. General: No acute distress. HEENT: Head exam is unremarkable. LUNGS: No audible rhonchi or wheezes. HEART: Rate and Rhythm are regular. ABDOMEN: Nontender. EXTREMITITES: No edema. Objective - Vital Signs Vital signs: Vital Signs Temp 98.7 F 01/15/24 07:07 Pulse 77 01/15/24 08:25 Resp 18 01/15/24 08:25 BP 167/101 01/15/24 07:07 Pulse Ox 91 L 01/15/24 07:07 FiO2 Intake & Output 01/14/24 01/15/24 01/15/24 18:59 06:59 18:59 Intake Total 240 Output Total 1 Balance 239 Weight 105.8 kg Intake: IV 240 Sodium Chloride 0.9% 1, 240 000 ml @ 40 mls/hr IV . Q24H [facility] Rx#:[id number] Output: Stool 1 Other: Voiding Method Toilet Toilet # Voids 1 # Bowel Movements 1 - Labs CBC & Chem 7: 01/15/24 06:05 01/15/24 06:05 Labs: Abnormal Lab Results - Last 24 Hours (Table) 01/15/24 01/15/24 Range/Units 06:05 06:05 WBC 12.36 H (4.50-10.00) X 10*3/uL RBC 2.51 L (4.40-5.60) X 10*6/uL Hgb 7.0 L (13.0-17.0) g/dL Hct 21.2 L (39.6-50.0) % RDW 16.9 H (11.5-14.5) % Carbon Dioxide 19.4 L (21.6-31.8) mmol/L Anion Gap 15.60 H (4.00-12.00) mmol/L BUN 50.8 H (9.0-27.0) mg/dL Creatinine 7.0 H (0.6-1.5) mg/dL Est GFR (CKD-EPI) 10 L (>=60) BUN/Creatinine Ratio 7.26 L (12.00-20.00) Ratio AST 75 H (14-35) U/L ALT 125 H (10-49) U/L Total Protein 5.4 L (6.2-8.2) g/dL Albumin 3.1 L (3.8-4.9) g/dL Albumin/Globulin Ratio 1.35 L (1.60-3.17) Ratio Microbiology - Last 24 Hours (Table) 01/09/24 06:09 Blood Culture - Final Blood Assessment and Plan Plan: Assessment: 1. Acute kidney injury secondary to ATN secondary to severe sepsis and rhabdomyolysis. Baseline creatinine 0.5-0.6 and >8 this admission. Started on hemodialysis January 05, 2024. No hydronephrosis noted on abdominal ultrasound. 2. Rhabdomyolysis secondary to fall/immobility. CK levels improved. 3. Severe sepsis secondary to staph bacteremia. On IV antibiotics. 4. Metabolic acidosis secondary to acute kidney injury. Improved from admission. 5. Hyponatremia secondary to acute kidney injury. Improved postdialysis. 6. Hypocalcemia secondary to acute kidney injury and rhabdomyolysis. Improved. 7. Benign hypertension. Plan: Maintain normal saline. Strict I's and O's. Discussed with nurse. Hemodialysis today as creatinine 7. Monitor for renal recovery. Avoid nephrotoxins. Add amlodipine 5 mg twice daily. Hold for systolic blood pressure less than 120.
--- NOTE | 2024-01-15 12:00 | P.PN ---
Subjective Progress Note Date: 01/15/24 Principal diagnosis: Reason for follow-up is fever and a positive blood culture Patient is a 38-year-old male with a past medical history of GERD for hypertension hepatitis C pancreatitis reflux history of alcoholism patient was brought into the ER by EMS after apparently the patient was noticed to be facedown in the snow when the EMS got him up he was unable to speak patient was hypothermic and subsequently brought into the ER for further evaluation, on arrival to the ER the patient did have a fever did have elevated white count chest x-ray UA was negative abdominal soft LP was done last night which came back negative as well. On today's evaluation that is 01/15/2024,the patient denies any fever or any chills, patient is breathing comfortably on room air, the patient has been complaining of hurting all over no vomiting diarrhea or any other changes reported by the nursing staff. Patient white count slightly up to 12.36 today creatinine 7.0 Objective - Vital Signs Vital signs: Vital Signs Temp 98.7 F 01/15/24 07:07 Pulse 77 01/15/24 08:25 Resp 18 01/15/24 08:25 BP 167/101 01/15/24 07:07 Pulse Ox 91 L 01/15/24 07:07 FiO2 Intake & Output 01/14/24 01/15/24 01/15/24 18:59 06:59 18:59 Intake Total 240 Output Total 1 Balance 239 Weight 105.8 kg Intake: IV 240 Sodium Chloride 0.9% 1, 240 000 ml @ 40 mls/hr IV . Q24H [facility] Rx#:[id number] Output: Stool 1 Other: Voiding Method Toilet Toilet # Voids 1 # Bowel Movements 1 - Exam GENERAL DESCRIPTION: Middle-age male lying in bed in no distress RESPIRATORY SYSTEM: Unlabored breathing , decreased breath sounds at bases HEART: S1 S2 regular rate and rhythm , ABDOMEN: Soft , no tenderness EXTREMITIES: No edema feet - Labs CBC & Chem 7: 01/15/24 06:05 01/15/24 06:05 Labs: Abnormal Lab Results - Last 24 Hours (Table) 01/15/24 01/15/24 Range/Units 06:05 06:05 WBC 12.36 H (4.50-10.00) X 10*3/uL RBC 2.51 L (4.40-5.60) X 10*6/uL Hgb 7.0 L (13.0-17.0) g/dL Hct 21.2 L (39.6-50.0) % RDW 16.9 H (11.5-14.5) % Carbon Dioxide 19.4 L (21.6-31.8) mmol/L Anion Gap 15.60 H (4.00-12.00) mmol/L BUN 50.8 H (9.0-27.0) mg/dL Creatinine 7.0 H (0.6-1.5) mg/dL Est GFR (CKD-EPI) 10 L (>=60) BUN/Creatinine Ratio 7.26 L (12.00-20.00) Ratio AST 75 H (14-35) U/L ALT 125 H (10-49) U/L Total Protein 5.4 L (6.2-8.2) g/dL Albumin 3.1 L (3.8-4.9) g/dL Albumin/Globulin Ratio 1.35 L (1.60-3.17) Ratio Microbiology - Last 24 Hours (Table) 01/09/24 06:09 Blood Culture - Final Blood Assessment and Plan (1) Fever with leukocytosis and leukocyte count greater than or equal to 20,000 Current Visit: Yes Status: Acute Code(s): D72.829 - ELEVATED WHITE BLOOD CELL COUNT, UNSPECIFIED SNOMED Code(s): 818851692 (2) Positive blood culture Current Visit: No Status: Acute Code(s): R78.81 - BACTEREMIA SNOMED Code(s): 278230776 Plan: 1patient presented hospital with episode of unresponsiveness by the EMS patient did have features of sepsis running a fever did have elevated white count, initial workup including a chest x-ray and UA has been negative the patient abdominal was soft on clinical examination and there was no evidence of any cellulitis with a question of possible [employer]ICE [employer]ER infection however the patient did have LP completed last night by ER physician and is negative 2-patient with a positive blood culture with coagulase-negative staph with concern for possible vs contamination repeat blood culture negative, daptomycin was discontinued as of 01/11/2024 3-patient did have elevated procalcitonin, repeat chest x-ray with mild lateral subsegmental areas of consolidation 4-patient remains to be afebrile, noted to have slight worsening of his white count we will repeat chest x-ray check inflammatory markers continue with Rocephin Dictation was produced using [employer] dictation software. please excuse any grammatical, word or spelling errors. Time with Patient: Less than 30
--- NOTE | 2024-01-15 14:36 | P.PN ---
Subjective Progress Note Date: 01/15/24 patient is a 38-year-old gentleman past medical significant for alcohol abuse, liver disease who presented to the ER for altered mental status. Patient has a history of alcohol abuse and has multiple admissions to this hospital for alcohol detox. Patient was brought in the ED by EMS after being found lying facedown in snow. There was no obvious sign of any trauma. Patient was unable to respond to any questions. EMS brought him immediately to the ER Initial lab work done in the ER showed WBC 22, hemoglobin 16.4, platelet count 274, sodium 152, potassium 5.1, BUN 38, creatinine 3.47, glucose 105, bilirubin 0.7, AST 1723, ALT 399, troponin 2.39 EKG done in the ER showed heart rate of 125, no ST segment elevation or depression seen, no T-wave inversions seen. Chest x-ray done in the ER showed no acute cardiopulmonary process CT head done showed no acute intracranial process CT cervical spine negative for any acute fracture or dislocation Patient admitted to internal medicine service. On my interview with patient, patient was much more responsive, kept on asking about getting soda and water. Stated that he has been laying on the ground for more than 15 hours. Patient is currently running a fever. Denies any chest pain or shortness of breath. Complaining of generalized body aches 01/05. Patient seen and examined. Blood work done this morning showed WBC 10.5, hemoglobin 9.8, platelet count 137, sodium 132, potassium 3.8, BUN 60, creatinine 4.02, calcium 6, CK greater than 381219. 2D echo done showed LVEF of 50 to 55%, no mitral regurg, trace tricuspid regurg 01/06. Patient seen and examined. Currently in restraints. Currently getting dialysis. Complaining of pain in his tongue, apparently bit his tongue during the fall. 01/07. Patient seen and examined. Continues to be in ICU. Currently on Precedex and IV fluids. Patient currently off restraints, is alert to self. 01/08. Patient seen and examined.Blood work done this morning showed WBC 8.7, hemoglobin 9.3, sodium 137, potassium 4.7, BUN 66, creatinine 6.25, AST is 1516, ALT is 546, currently on 2 L of oxygen. Patient is alert, answering questions, currently on Precedex drip. 01/09/2024 Patient is in MICU. Currently lying in the bed. Awake and alert but lethargic and drowsy. Currently on room air. Tolerating oral diet. Laboratory data showed WBC 7.4 hemoglobin 7.8 and platelets 124, sodium 1:30 p otassium 3.6 chloride 103 bicarb is 22 BUN 59 and creatinine 5.67 01/10/2024 Patient is in the MICU. Awake alert and oriented. Seems to be more awake today. On room air. No complaints of chest pain or shortness breath. Patient does have good oral input. No fever no chills. Laboratory data showed WBC 6.7 hemoglobin 8.0 and platelets 136, sodium 1:30 potassium 3.3 chloride 103 bicarb is 26 BUN 40 and creatinine trending down to 4.63 today. Calcium 7.1 and pro calcitonin was 1.46. Patient is on antibiotics ceftriaxone. ID, nephrology and pulmonary is on board. 01/11/2024 Patient is resting in the bed. On room air. Able to ambulate in the room. Patient is being transferred to ICU. Urine output has been improving. Last hemodialysis on 01/09/2024. Patient has been afebrile. Repeat blood cultures negative. Laboratory data showed no illicit 5.9 hemoglobin 9.2 and platelets 154 sodium 133 potassium 2.3 and chloride 103 and bicarb 23 BUN 53 and creatinine 6.39. Patient is on normal saline at 40 mL per hour. On antibiotics ceftriaxone. 01/12/2024 Patient is currently in the telemetry unit. Patient is lying in the bed. Awake alert and orient x 3. No complaints of chest pain. Denies any worsening shortness of breath. No cough or sputum function. Patient is being cannula antibiotics ceftriaxone. Currently on IV hydration with normal saline at 40 cc/h. Patient is tolerating dysphagia level 3 diet. Laboratory pressure WBC 7.0 hemoglobin 7.9 and platelets 211 Sodium 130 potassium 4.2 chloride 104 bicarb is 19 BUN 16 creatinine went up to 7.41 again today. 01/13. Patient seen and examined. Patient has swelling of upper extremities, states he is making urine. Patient is calm. Alert and oriented. 01/14. Patient seen and examined. Patient was sitting in the chair, stated he took a shower this morning feels much better compared to yesterday. Denies any fever or chills. Vital signs stable 01/15. Patient seen and examined. Lab work done in the morning showed WBC 12.36, hemoglobin 7, sodium is 140, potassium is 5.1, BUN is 50, creatinine 7. Vital signs are temperature 98.7, heart rate of 77, respiratory 18, blood pressure 167/101 REVIEW OF SYSTEMS: CONSTITUTIONAL: No fever, no malaise,. CARDIOVASCULAR: No chest pain, no palpitations, no syncope. PULMONARY: No shortness of breath, no cough, GASTROINTESTINAL: No diarrhea, no nausea, no vomiting, no abdominal pain. NEUROLOGICAL: No headaches, no weakness, PHYSICAL EXAMINATION: GENERAL: The patient is alert and oriented x3, not in any acute distress. Well developed, well nourished. HEENT: Pupils are round and equally reacting to light. EOMI. No scleral icterus. No conjunctival pallor. Normocephalic, atraumatic. No pharyngeal erythema. No thyromegaly. CARDIOVASCULAR: S1 and S2 present. No murmurs, rubs, or gallops. PULMONARY: Chest is clear to auscultation, no wheezing or crackles. ABDOMEN: Soft, nontender, nondistended, normoactive bowel sounds. No palpable organomegaly. MUSCULOSKELETAL: 1Plus edema of lower extremities bilaterally EXTREMITIES: No cyanosis, clubbing,. NEUROLOGICAL: Gross neurological examination did not reveal any focal deficits. SKIN: No rashes. Assessment and plan Acute metabolic encephalopathy. Improving. Acute kidney injury secondary to ATN due to infection and rhabdomyolysis. requiring hemodialysis. Started on 01/05/2024. Patient had last hemodialysis on 01/09/2024 Gram-positive Bacteremia. Coagulase-negative staph. Repeat blood cultures negative. Sepsis Acute Rhabdomyolysis secondary to fall Hypothermia Hypernatremia. Resolved. Hypocalcemia secondary to acute kidney injury and rhabdomyolysis. Leukocytosis Elevated troponin level. Ratio of CPK and troponin suggest skeletal muscle injury pattern in the sitting up acute right. Acute transaminitis Fall History of alcohol abuse Acute alcohol withdrawal symptoms History of depression Monitor vital signs Monitor CBC Monitor CMP Continue telemetry monitoring Follow-up on blood cultures 2D echo done showed LVEF of 50 to 55%, no mitral regurg, trace tricuspid regurg Avoid nephrotoxic agent Avoid hepatotoxic agents Continue Coreg, clonidine patch Strict I's and O's, daily weights Continue IV Rocephin . patient is status post LP with CSF culture negative. Continue CIWA protocol continue thiamine and folic acid Nephrology following, received run of dialysis on 01/13, waiting on further rounds of dialysis depending upon patient renal functions ID following Pulmonology following Labs and medication were reviewed.. Continue same treatment. Continue with symptomatic treatment. Resume home medication. Monitor labs and vitals. DVT and GI prophylaxis. Further recommendations as per clinical course of the patient Dictation was produced using [employer] dictation software. please excuse any grammatical, word or spelling errors. Objective - Vital Signs Vital signs: Vital Signs Temp 98.7 F 01/15/24 07:07 Pulse 77 01/15/24 07:07 Resp 18 01/15/24 07:07 BP 167/101 01/15/24 07:07 Pulse Ox 91 L 01/15/24 07:07 FiO2 Intake & Output 01/14/24 01/15/24 01/15/24 18:59 06:59 18:59 Intake Total 240 Output Total 1 Balance 239 Weight 105.8 kg Intake: IV 240 Sodium Chloride 0.9% 1, 240 000 ml @ 40 mls/hr IV . Q24H [facility] Rx#:[id number] Output: Stool 1 Other: Voiding Method Toilet # Voids 1 # Bowel Movements 1 - Labs CBC & Chem 7: 01/15/24 06:05 01/15/24 06:05 Labs: Abnormal Lab Results - Last 24 Hours (Table) 01/15/24 01/15/24 Range/Units 06:05 06:05 WBC 12.36 H (4.50-10.00) X 10*3/uL RBC 2.51 L (4.40-5.60) X 10*6/uL Hgb 7.0 L (13.0-17.0) g/dL Hct 21.2 L (39.6-50.0) % RDW 16.9 H (11.5-14.5) % Carbon Dioxide 19.4 L (21.6-31.8) mmol/L Anion Gap 15.60 H (4.00-12.00) mmol/L BUN 50.8 H (9.0-27.0) mg/dL Creatinine 7.0 H (0.6-1.5) mg/dL Est GFR (CKD-EPI) 10 L (>=60) BUN/Creatinine Ratio 7.26 L (12.00-20.00) Ratio AST 75 H (14-35) U/L ALT 125 H (10-49) U/L Total Protein 5.4 L (6.2-8.2) g/dL Albumin 3.1 L (3.8-4.9) g/dL Albumin/Globulin Ratio 1.35 L (1.60-3.17) Ratio Microbiology - Last 24 Hours (Table) 01/09/24 06:09 Blood Culture - Final Blood
--- NOTE | 2024-01-15 15:07 | P.PN ---
Subjective Progress Note Date: 01/15/24 This is a 38-year-old white male with history of multiple medical problems including alcoholism, hepatitis C, hypertension, GERD, patient was brought into the ER yesterday after he was noted to be face down in the snow, upon EMS arrival, the patient was hypothermic, and altered mental status. In the ER, the patient was noted to have temp of 102.6, he was tachycardic, and was not hypotensive or hypoxic. Workup in the ER included CBC which showed leukocytosis. His bicarb was noted to be low, patient was noted to have anion gap metabolic acidosis, he was also noted to have renal failure with a BUN of 51 creatinine 3.45. His CPK was significantly elevated almost 92,000, troponin elevated at 1.6, and liver enzymes were also elevated including AST and ALT. There was evidence of blood in the urine. No drug screen was done at the time of arrival, but his alcohol level was less than 10. His RSV PCR was positive. Drug screen in the ICU was positive for barbiturates, amphetamine, methamphetami ne, and benzodiazepines. Patient was seen by many consultants including infectious disease, patient was started empirically on antibiotics in the form of Rocephin and vancomycin, and infectious disease recommended a lumbar puncture on this patient. Initial chemistry on the spinal fluid seems to be unremarkable. Final report is pending. His blood cultures today are positive for gram-positive cocci in clusters. Patient was seen by nephrology today, and recommending starting the patient on hemodialysis. Patient was felt to have acute kidney injury secondary to ATN, and severe sepsis and rhabdomyolysis, oliguric, unresponsive to diuretics, and there was no hydronephrosis on the abdominal ultrasound. At any rate patient is scheduled to have a dialysis catheter placement today. Last night the patient was on the regular medical floor, I was made aware of this patient because his CIWA score was 20,, patient was already on a bicarb drip, and I have recommended transferring the patient out of the floor to the ICU saw this patient this morning, reviewed all his labs and workup, remains on bicarb drip, empirically on antibiotics for his presumptive severe sepsis and bacteremia as noted on blood cultures today, patient continues to have significantly elevated CPK, continues to have w orsening renal failure. Blood pressure was high and I recommended Cleviprex at 2 mg/h. Also recommended a drug screen to be done. Patient did not require Precedex, he is agitation is well-controlled with Ativan. According to the patient his last alcohol drink was 2 days ago. Patient is not a great historian, seems to mumble but does not give adequate history. And he is by all means encephalopathic. But able to protect his airways, and able to cough and clear secretions. Hence did not feel the need to intubate this patient at this point. Procalcitonin level this morning is 45.9 Patient was reevaluated today on 01/06/2024, his blood cultures are actually now coagulase-negative staph, most likely blood cultures are contaminated. Patient is still restless and agitated easily, remains in the ICU, he will be undergoing dialysis today, he had dialysis yesterday. Complaining of hurting all over, patient remains a bit confused, and lethargic. His creatinine is high at 4.3, hemoglobin is down from 16.3 on admission now 10.3, platelets are coming down, hence I am stopping his heparin. CPK remains high at 158,000, patient is still receiving fluids at 200 cc/h, and he will have more dialysis today. Patient is extremely oliguric. Liver enzymes are also elevated with a AST of 2498, and ALT 573, improving compared to yesterday Patient was reevaluated today on 01/07/2024, remains in the ICU, marginal at best. On 3 L nasal cannula, remains a bit encephalopathic with a slight im provement in his overall mental status patient knows that he is at [facility], he realized the year is 2023. Patient continues to have marginal urine output, he is oliguric, intermittently on hemodialysis, patient remains on daptomycin and ceftriaxone, blood cultures were contaminated with staph/coagulase negative. Spinal fluid cultures have been negative CPK is coming down today, he is down to 89,000 from 159,000 yesterday. Renal functioning is about the same with a creatinine 4.60 and BUN of 49, Liver enzymes are steadily improving. And ammonia level is less than 90. His IV fluid remains at 200 cc/h patient is receiving MVI. Progress note dated January 08, 2024. 38-year-old male who was admitted to the hospital on 04 January. The patient came to the intensive care unit on the . Currently, the patient is seen today in room 255. The patient is on room air. He is getting saline at 130 cc an hour. He continues on dexmedetomidine at 0.4 mcg/kg/h. The patient has had hemodialysis, twice, but is planning to have hemodialysis again today. Will add some Haldol, Seroquel, and clonidine patch to his regimen, to get him off the dexmedetomidine. Current labs include white count 8.7, hemoglobin 9.3, hematocrit 27.8, and platelet count 108,000. Sodium 131, potassium 4.7, chlorides 105, CO2 14, anion gap 12, BUN 66, creatinine 6.25. AST is 1516. ALT is 546. CK is down from 89,000, to 73,807. Blood cultures are positive for coag negative staph. No chest x-ray to report on. Progress note dated January 09, 2024. 38-year-old male who was admitted to the hospital on January 04. The patient came to the intensive care unit, on the . Currently, the patient is seen today in room 255. The patient continues on room air. The patient is getting saline at 75 cc an hour. He will have another hemodialysis session today, which is #4. Yesterday, he had hemodialysis, and 2 L was removed. He is currently off the dexmedetomidine. White count 7.4, hemoglobin 7.8, hematocrit 22.8, platelet count 124,000. Sodium 130, potassium 3.6, chlorides 103, CO2 22, BUN 59, creatinine 5.67. His calcium is 7.0. Blood cultures were positive for coag negative staph. Progress note dated January 10, 2024. 38-year-old male again seen today in room 255, the intensive care unit. Currently, the patient is on room air. He is getting saline at 40 cc an hour. According to his nurse, he had an uneventful night. In our opinion, the patient is stable to be transferred out of the intensive care unit. Current labs include a white count of 6.7, hemoglobin 8, hematocrit 23.9, and a platelet count of 136,000. Sodium 130, potassium 3.3, chlorides 103, CO2 26, BUN 40, creatinine 4.63. His CK is down to 36,783. Procalcitonin level is 1.46. Progress note dated January 11, 2024. 38-year-old male seen again in room 255. The patient is currently doing better. The patient is on room air. He is getting saline at 40 cc an hour. According to his nurse, the patient had an uneventful night. The patient is calm, and not agitated. No new labs today. Chest x-ray suggest some bilateral subsegmental atelectasis. The patient is seen today January 12, 2024 in follow-up on the regular medical floor. He is currently resting comfortably in bed. Awake and alert in no acute distress. Maintaining O2 saturation in the 90s on room air. No IV fluids. He has been calm and cooperative. Follow-up blood cultures revealed no growth. Cerebrospinal fluid cultures revealed no growth. No new labs today. He remains on ceftriaxone. NicoDerm patch in place. Heparin for DVT prophylaxis. He remains on the CIWA protocol. He did require Ativan early this morning. The patient is seen today January 13, 2024 in follow-up on the regular medical floor. He is awake and alert in no acute distress. Resting comfortably in bed. Denies any worsening shortness of breath, cough or congestion. He is maintaining O2 saturations in the 90s on room air. Laying flat in bed. Sodium 132. Potassium 4.5. Bicarb 21. BUN 65. Creatinine 8.11. Glucose 72. AST 104. ALT 175. Creatinine kinase 2293. He remains on the CIWA protocol. Remains on Seroquel. NicoDerm patch in place. Continued on antibiotics in the form of ceftriaxone. Plan is for hemodialysis today. His urine output is improving. The patient is seen today January 14, 2024 in follow-up on the regular medical floor. He is laying flat in bed. Awake and alert in no acute distress. No worsening shortness of breath, cough or congestion. He has been calm and cooperative. Follow-up blood cultures revealed no growth. Cerebrospinal fluid cultures revealed no growth. Today's labs are pending. Urine output has been increasing. Nephrology is following and plans to try to hold off dialysis for now. Avoiding nephrotoxic medications. He remains on antibiotics in the form of ceftriaxone. Heparin for DVT prophylaxis. NicoDerm patch in place. Continued on Seroquel. Still requiring occasional Ativan. On today's evaluation of 01/15/2024, the patient is being seen for a follow-up. The patient is recovering from acute alcohol withdrawal syndrome. He did encounter some metabolic encephalopathy and he seems to be more appropriate. The same time, the patient Had coagulase-negative bacteremia on 2 separate blood cultures and repeat blood cultures are essentially negative. The patient is currently on IV Rocephin. He is calm and comfortable and resting comfortably in bed. His pulse ox is 94% on room air oxygen. His white cell close of 12.3 with a hemoglobin of 7 and a platelet count of 287. Sodium is at 140, BUN is at 50 with a creatinine of 7.0 and a potassium level is at 5.1 and a bicarb level is at 19.4. The patient is currently undergoing hemodialysis. He is known to have history of alcoholism, hepatitis C, history of IV drug use, and during this current hospital stay, the patient also tested positive for RSV on 01/04/2024. He is following commands today. Answer questions appropriately. He is being seen by nephrology. He is going to undergo hemodialysis as the creatinine is at 7.0. Will monitor his renal recovery. Amlodipine was also added for tighter blood pressure control. Objective - Vital Signs Vital signs: Vital Signs Temp 98.7 F 01/15/24 07:07 Pulse 77 01/15/24 08:25 Resp 18 01/15/24 08:25 BP 167/101 01/15/24 07:07 Pulse Ox 91 L 01/15/24 07:07 FiO2 Intake & Output 01/14/24 01/15/24 01/15/24 18:59 06:59 18:59 Intake Total 240 Output Total 1 Balance 239 Weight 105.8 kg Intake: IV 240 Sodium Chloride 0.9% 1, 240 000 ml @ 40 mls/hr IV . Q24H [facility] Rx#:[id number] Output: Stool 1 Other: Voiding Method Toilet Toilet # Voids 1 # Bowel Movements 1 - Exam GENERAL EXAM: Alert, calm, cooperative 38-year-old male, on room air, in no apparent distress. HEAD: Normocephalic. EYES: Normal reaction of pupils, equal size. NOSE: Clear with pink turbinates. THROAT: No erythema or exudates. NECK: No masses, no JVD. CHEST: No chest wall deformity. LUNGS: Equal air entry with no crackles, wheeze, rhonchi or dullness. CVS: S1 and S2 normal with no audible murmur, regular rhythm. ABDOMEN: No hepatosplenomegaly, normal bowel sounds, no guarding or rigidity. SPINE: No scoliosis or deformity SKIN: No rashes CENTRAL NERVOUS SYSTEM: No focal deficits, tone is normal in all 4 extremities. EXTREMITIES: There is no peripheral edema. No clubbing, no cyanosis. Peripheral pulses are intact. - Labs CBC & Chem 7: 01/15/24 06:05 01/15/24 06:05 Labs: Abnormal Lab Results - Last 24 Hours (Table) 01/15/24 01/15/24 Range/Units 06:05 06:05 WBC 12.36 H (4.50-10.00) X 10*3/uL RBC 2.51 L (4.40-5.60) X 10*6/uL Hgb 7.0 L (13.0-17.0) g/dL Hct 21.2 L (39.6-50.0) % RDW 16.9 H (11.5-14.5) % Carbon Dioxide 19.4 L (21.6-31.8) mmol/L Anion Gap 15.60 H (4.00-12.00) mmol/L BUN 50.8 H (9.0-27.0) mg/dL Creatinine 7.0 H (0.6-1.5) mg/dL Est GFR (CKD-EPI) 10 L (>=60) BUN/Creatinine Ratio 7.26 L (12.00-20.00) Ratio AST 75 H (14-35) U/L ALT 125 H (10-49) U/L Total Protein 5.4 L (6.2-8.2) g/dL Albumin 3.1 L (3.8-4.9) g/dL Albumin/Globulin Ratio 1.35 L (1.60-3.17) Ratio Microbiology - Last 24 Hours (Table) 01/09/24 06:09 Blood Culture - Final Blood Assessment and Plan Plan: Acute alcohol withdrawal syndrome, currently inactive and stable without any ongoing signs of alcohol withdrawal. Acute metabolic encephalopathy, improved Possible bacteremia secondary to coagulase-negative staphylococci, likely contaminant. This is a coagulase-negative staph Hypothermia, resolved Acute transaminitis, AST and ALT are mildly elevated Acute RSV infection, no signs of any respiratory compromise Acute kidney injury secondary to rhabdomyolysis requiring hemodialysis, to be un dergoing hemodialysis today History of alcoholism History of hepatitis C History of gastroesophageal reflux disease History of IV drug abuse History of pancreatitis History of bipolar disorder and depression Plan: Hemodialysis to be done today Currently stable and on room air Remains on the CIWA protocol Increase his activity as tolerated Continue Coreg Amlodipine 5 mg p.o. twice daily for tighter blood pressure control Seroquel 100 mg twice a day IV fluids with normal saline at rate of 40 cc an hour May require ECF placement and outpatient hemodialysis We will continue to follow
[2024-01-15] MEDS: amLODIPine 5 MG TAB PO SCH (21:26)
--- NOTE | 2024-01-16 11:17 | P.PN ---
Subjective Patient is seen in follow-up for acute kidney injury. Underwent dialysis yesterday but the catheter was not functioning well. Has been voiding but strict I's and O's not done. Vital signs are stable. General: No acute distress. HEENT: Head exam is unremarkable. LUNGS: No audible rhonchi or wheezes. HEART: Rate and Rhythm are regular. ABDOMEN: Nontender. EXTREMITITES: No edema. Objective - Vital Signs Vital signs: Vital Signs Temp 98.6 F 01/16/24 10:29 Pulse 78 01/16/24 10:29 Resp 20 01/16/24 10:29 BP 148/80 01/16/24 10:29 Pulse Ox 90 L 01/16/24 10:29 FiO2 Intake & Output 01/15/24 01/16/24 01/16/24 18:59 06:59 18:59 Intake Total 900 Output Total 1900 Balance -1000 Weight 104 kg Intake: Hemodialysis 900 Output: Hemodialysis 1900 Other: Voiding Method Toilet Toilet Toilet # Voids 3 2 2 # Bowel Movements 1 - Labs CBC & Chem 7: 01/15/24 06:05 01/15/24 06:05 Labs: Abnormal Lab Results - Last 24 Hours (Table) 01/15/24 01/15/24 Range/Units 12:18 12:18 C-Reactive Protein 7.00 H (0.00-0.80) mg/dL Procalcitonin 0.18 H (0.02-0.09) ng/mL Assessment and Plan Plan: Assessment: 1. Acute kidney injury secondary to ATN secondary to severe sepsis and rhabdomyolysis. Baseline creatinine 0.5-0.6 and >8 this admission. Started on hemodialysis January 05, 2024. No hydronephrosis noted on abdominal ultrasound. Last dialysis January 15, 2024. 2. Rhabdomyolysis secondary to fall/immobility. CK levels improved. 3. Severe sepsis secondary to staph bacteremia. On IV antibiotics. 4. Metabolic acidosis secondary to acute kidney injury. Improved from admission. 5. Hyponatremia secondary to acute kidney injury. Improved postdialysis. 6. Hypocalcemia secondary to acute kidney injury and rhabdomyolysis. Improved. 7. Benign hypertension. 8. Hyperphosphatemia secondary to acute kidney injury. Phosphorus level 6.4 dated January 13, 2024. Plan: Maintain normal saline. Strict I's and O's. Discussed with nurse. Plan for hemodialysis tomorrow. Vascular surgery will be notified to exchange dialysis catheter. Monitor for renal recovery. Avoid nephrotoxins. Add as needed hydralazine. Add Renvela with meals. Repeat phosphorus level tomorrow.
[2024-01-16] MEDS: SEVELAMER 800 MG TAB PO SCH (13:04)
--- NOTE | 2024-01-16 14:01 | P.PN ---
Subjective Progress Note Date: 01/16/24 patient is a 38-year-old gentleman past medical significant for alcohol abuse, liver disease who presented to the ER for altered mental status. Patient has a history of alcohol abuse and has multiple admissions to this hospital for alcohol detox. Patient was brought in the ED by EMS after being found lying facedown in snow. There was no obvious sign of any trauma. Patient was unable to respond to any questions. EMS brought him immediately to the ER Initial lab work done in the ER showed WBC 22, hemoglobin 16.4, platelet count 274, sodium 152, potassium 5.1, BUN 38, creatinine 3.47, glucose 105, bilirubin 0.7, AST 1723, ALT 399, troponin 2.39 EKG done in the ER showed heart rate of 125, no ST segment elevation or depression seen, no T-wave inversions seen. Chest x-ray done in the ER showed no acute cardiopulmonary process CT head done showed no acute intracranial process CT cervical spine negative for any acute fracture or dislocation Patient admitted to internal medicine service. On my interview with patient, patient was much more responsive, kept on asking about getting soda and water. Stated that he has been laying on the ground for more than 15 hours. Patient is currently running a fever. Denies any chest pain or shortness of breath. Complaining of generalized body aches 01/05. Patient seen and examined. Blood work done this morning showed WBC 10.5, hemoglobin 9.8, platelet count 137, sodium 132, potassium 3.8, BUN 60, creatinine 4.02, calcium 6, CK greater than 332242. 2D echo done showed LVEF of 50 to 55%, no mitral regurg, trace tricuspid regurg 01/06. Patient seen and examined. Currently in restraints. Currently getting dialysis. Complaining of pain in his tongue, apparently bit his tongue during the fall. 01/07. Patient seen and examined. Continues to be in ICU. Currently on Precedex and IV fluids. Patient currently off restraints, is alert to self. 01/08. Patient seen and examined.Blood work done this morning showed WBC 8.7, hemoglobin 9.3, sodium 137, potassium 4.7, BUN 66, creatinine 6.25, AST is 1516, ALT is 546, currently on 2 L of oxygen. Patient is alert, answering questions, currently on Precedex drip. 01/09/2024 Patient is in MICU. Currently lying in the bed. Awake and alert but lethargic and drowsy. Currently on room air. Tolerating oral diet. Laboratory data showed WBC 7.4 hemoglobin 7.8 and platelets 124, sodium 1:30 p otassium 3.6 chloride 103 bicarb is 22 BUN 59 and creatinine 5.67 01/10/2024 Patient is in the MICU. Awake alert and oriented. Seems to be more awake today. On room air. No complaints of chest pain or shortness breath. Patient does have good oral input. No fever no chills. Laboratory data showed WBC 6.7 hemoglobin 8.0 and platelets 136, sodium 1:30 potassium 3.3 chloride 103 bicarb is 26 BUN 40 and creatinine trending down to 4.63 today. Calcium 7.1 and pro calcitonin was 1.46. Patient is on antibiotics ceftriaxone. ID, nephrology and pulmonary is on board. 01/11/2024 Patient is resting in the bed. On room air. Able to ambulate in the room. Patient is being transferred to ICU. Urine output has been improving. Last hemodialysis on 01/09/2024. Patient has been afebrile. Repeat blood cultures negative. Laboratory data showed no illicit 5.9 hemoglobin 9.2 and platelets 154 sodium 133 potassium 2.3 and chloride 103 and bicarb 23 BUN 53 and creatinine 6.39. Patient is on normal saline at 40 mL per hour. On antibiotics ceftriaxone. 01/12/2024 Patient is currently in the telemetry unit. Patient is lying in the bed. Awake alert and orient x 3. No complaints of chest pain. Denies any worsening shortness of breath. No cough or sputum function. Patient is being cannula antibiotics ceftriaxone. Currently on IV hydration with normal saline at 40 cc/h. Patient is tolerating dysphagia level 3 diet. Laboratory pressure WBC 7.0 hemoglobin 7.9 and platelets 211 Sodium 130 potassium 4.2 chloride 104 bicarb is 19 BUN 16 creatinine went up to 7.41 again today. 01/13. Patient seen and examined. Patient has swelling of upper extremities, states he is making urine. Patient is calm. Alert and oriented. 01/14. Patient seen and examined. Patient was sitting in the chair, stated he took a shower this morning feels much better compared to yesterday. Denies any fever or chills. Vital signs stable 01/15. Patient seen and examined. Lab work done in the morning showed WBC 12.36, hemoglobin 7, sodium is 140, potassium is 5.1, BUN is 50, creatinine 7. Vital signs are temperature 98.7, heart rate of 77, respiratory 18, blood pressure 167/101 2/27. Patient seen and examined. Complaining of diarrhea. Tolerating diet REVIEW OF SYSTEMS: CONSTITUTIONAL: No fever, no malaise,. CARDIOVASCULAR: No chest pain, no palpitations, no syncope. PULMONARY: No shortness of breath, no cough, GASTROINTESTINAL: no nausea, no vomiting, no abdominal pain. NEUROLOGICAL: No headaches, no weakness, PHYSICAL EXAMINATION: GENERAL: The patient is alert and oriented x3, not in any acute distress. Well developed, well nourished. HEENT: Pupils are round and equally reacting to light. EOMI. No scleral icterus. No conjunctival pallor. Normocephalic, atraumatic. No pharyngeal erythema. No thyromegaly. CARDIOVASCULAR: S1 and S2 present. No murmurs, rubs, or gallops. PULMONARY: Chest is clear to auscultation, no wheezing or crackles. ABDOMEN: Soft, nontender, nondistended, normoactive bowel sounds. No palpable organomegaly. MUSCULOSKELETAL: 1Plus edema of lower extremities bilaterally EXTREMITIES: No cyanosis, clubbing,. NEUROLOGICAL: Gross neurological examination did not reveal any focal deficits. SKIN: No rashes. Assessment and plan Acute metabolic encephalopathy. Improving. Acute kidney injury secondary to ATN due to infection and rhabdomyolysis. requiring hemodialysis. Started on 01/05/2024. Patient had last hemodialysis on 01/09/2024 Gram-positive Bacteremia. Coagulase-negative staph. Repeat blood cultures negative. Sepsis Acute Rhabdomyolysis secondary to fall Hypothermia Hypernatremia. Resolved. Hypocalcemia secondary to acute kidney injury and rhabdomyolysis. Leukocytosis Elevated troponin level. Ratio of CPK and troponin suggest skeletal muscle injury pattern in the sitting up acute right. Acute transaminitis Fall History of alcohol abuse Acute alcohol withdrawal symptoms History of depression Monitor vital signs Monitor CBC Monitor CMP Continue telemetry monitoring Follow-up on blood cultures 2D echo done showed LVEF of 50 to 55%, no mitral regurg, trace tricuspid regurg Avoid nephrotoxic agent Avoid hepatotoxic agents Continue Coreg, clonidine patch Strict I's and O's, daily weights Ordered stool for C. difficile patient is status post LP with CSF culture negative. Continue CIWA protocol continue thiamine and folic acid Nephrology following, received run of dialysis on 01/13, waiting on further rounds of dialysis depending upon patient renal functions ID following Pulmonology following Labs and medication were reviewed.. Continue same treatment. Continue with symptomatic treatment. Resume home medication. Monitor labs and vitals. DVT and GI prophylaxis. Further recommendations as per clinical course of the patient Dictation was produced using [employer] dictation software. please excuse any gramm atical, word or spelling errors. Objective - Vital Signs Vital signs: Vital Signs Temp 98.6 F 01/16/24 10:29 Pulse 78 01/16/24 10:29 Resp 20 01/16/24 10:29 BP 148/80 01/16/24 10:29 Pulse Ox 90 L 01/16/24 10:29 FiO2 Intake & Output 01/15/24 01/16/24 01/16/24 18:59 06:59 18:59 Intake Total 900 Output Total 1900 Balance -1000 Weight 104 kg Intake: Hemodialysis 900 Output: Hemodialysis 1900 Other: Voiding Method Toilet Toilet Toilet # Voids 3 2 2 # Bowel Movements 1 - Labs CBC & Chem 7: 01/15/24 06:05 01/15/24 06:05 Labs: Abnormal Lab Results - Last 24 Hours (Table) 01/15/24 01/15/24 Range/Units 12:18 12:18 C-Reactive Protein 7.00 H (0.00-0.80) mg/dL Procalcitonin 0.18 H (0.02-0.09) ng/mL
--- NOTE | 2024-01-16 14:08 | P.PN ---
Subjective Progress Note Date: 01/16/24 This is a 38-year-old white male with history of multiple medical problems including alcoholism, hepatitis C, hypertension, GERD, patient was brought into the ER yesterday after he was noted to be face down in the snow, upon EMS arrival, the patient was hypothermic, and altered mental status. In the ER, the patient was noted to have temp of 102.6, he was tachycardic, and was not hypotensive or hypoxic. Workup in the ER included CBC which showed leukocytosis. His bicarb was noted to be low, patient was noted to have anion gap metabolic acidosis, he was also noted to have renal failure with a BUN of 51 creatinine 3.45. His CPK was significantly elevated almost 92,000, troponin elevated at 1.6, and liver enzymes were also elevated including AST and ALT. There was evidence of blood in the urine. No drug screen was done at the time of arrival, but his alcohol level was less than 10. His RSV PCR was positive. Drug screen in the ICU was positive for barbiturates, amphetamine, methamphetami ne, and benzodiazepines. Patient was seen by many consultants including infectious disease, patient was started empirically on antibiotics in the form of Rocephin and vancomycin, and infectious disease recommended a lumbar puncture on this patient. Initial chemistry on the spinal fluid seems to be unremarkable. Final report is pending. His blood cultures today are positive for gram-positive cocci in clusters. Patient was seen by nephrology today, and recommending starting the patient on hemodialysis. Patient was felt to have acute kidney injury secondary to ATN, and severe sepsis and rhabdomyolysis, oliguric, unresponsive to diuretics, and there was no hydronephrosis on the abdominal ultrasound. At any rate patient is scheduled to have a dialysis catheter placement today. Last night the patient was on the regular medical floor, I was made aware of this patient because his CIWA score was 20,, patient was already on a bicarb drip, and I have recommended transferring the patient out of the floor to the ICU saw this patient this morning, reviewed all his labs and workup, remains on bicarb drip, empirically on antibiotics for his presumptive severe sepsis and bacteremia as noted on blood cultures today, patient continues to have significantly elevated CPK, continues to have w orsening renal failure. Blood pressure was high and I recommended Cleviprex at 2 mg/h. Also recommended a drug screen to be done. Patient did not require Precedex, he is agitation is well-controlled with Ativan. According to the patient his last alcohol drink was 2 days ago. Patient is not a great historian, seems to mumble but does not give adequate history. And he is by all means encephalopathic. But able to protect his airways, and able to cough and clear secretions. Hence did not feel the need to intubate this patient at this point. Procalcitonin level this morning is 45.9 Patient was reevaluated today on 01/06/2024, his blood cultures are actually now coagulase-negative staph, most likely blood cultures are contaminated. Patient is still restless and agitated easily, remains in the ICU, he will be undergoing dialysis today, he had dialysis yesterday. Complaining of hurting all over, patient remains a bit confused, and lethargic. His creatinine is high at 4.3, hemoglobin is down from 16.3 on admission now 10.3, platelets are coming down, hence I am stopping his heparin. CPK remains high at 158,000, patient is still receiving fluids at 200 cc/h, and he will have more dialysis today. Patient is extremely oliguric. Liver enzymes are also elevated with a AST of 2498, and ALT 573, improving compared to yesterday Patient was reevaluated today on 01/07/2024, remains in the ICU, marginal at best. On 3 L nasal cannula, remains a bit encephalopathic with a slight im provement in his overall mental status patient knows that he is at [facility], he realized the year is 2023. Patient continues to have marginal urine output, he is oliguric, intermittently on hemodialysis, patient remains on daptomycin and ceftriaxone, blood cultures were contaminated with staph/coagulase negative. Spinal fluid cultures have been negative CPK is coming down today, he is down to 89,000 from 159,000 yesterday. Renal functioning is about the same with a creatinine 4.60 and BUN of 49, Liver enzymes are steadily improving. And ammonia level is less than 90. His IV fluid remains at 200 cc/h patient is receiving MVI. Progress note dated January 08, 2024. 38-year-old male who was admitted to the hospital on 04 January. The patient came to the intensive care unit on the . Currently, the patient is seen today in room 255. The patient is on room air. He is getting saline at 130 cc an hour. He continues on dexmedetomidine at 0.4 mcg/kg/h. The patient has had hemodialysis, twice, but is planning to have hemodialysis again today. Will add some Haldol, Seroquel, and clonidine patch to his regimen, to get him off the dexmedetomidine. Current labs include white count 8.7, hemoglobin 9.3, hematocrit 27.8, and platelet count 108,000. Sodium 131, potassium 4.7, chlorides 105, CO2 14, anion gap 12, BUN 66, creatinine 6.25. AST is 1516. ALT is 546. CK is down from 89,000, to 73,807. Blood cultures are positive for coag negative staph. No chest x-ray to report on. Progress note dated January 09, 2024. 38-year-old male who was admitted to the hospital on January 04. The patient came to the intensive care unit, on the . Currently, the patient is seen today in room 255. The patient continues on room air. The patient is getting saline at 75 cc an hour. He will have another hemodialysis session today, which is #4. Yesterday, he had hemodialysis, and 2 L was removed. He is currently off the dexmedetomidine. White count 7.4, hemoglobin 7.8, hematocrit 22.8, platelet count 124,000. Sodium 130, potassium 3.6, chlorides 103, CO2 22, BUN 59, creatinine 5.67. His calcium is 7.0. Blood cultures were positive for coag negative staph. Progress note dated January 10, 2024. 38-year-old male again seen today in room 255, the intensive care unit. Currently, the patient is on room air. He is getting saline at 40 cc an hour. According to his nurse, he had an uneventful night. In our opinion, the patient is stable to be transferred out of the intensive care unit. Current labs include a white count of 6.7, hemoglobin 8, hematocrit 23.9, and a platelet count of 136,000. Sodium 130, potassium 3.3, chlorides 103, CO2 26, BUN 40, creatinine 4.63. His CK is down to 36,783. Procalcitonin level is 1.46. Progress note dated January 11, 2024. 38-year-old male seen again in room 255. The patient is currently doing better. The patient is on room air. He is getting saline at 40 cc an hour. According to his nurse, the patient had an uneventful night. The patient is calm, and not agitated. No new labs today. Chest x-ray suggest some bilateral subsegmental atelectasis. The patient is seen today January 12, 2024 in follow-up on the regular medical floor. He is currently resting comfortably in bed. Awake and alert in no acute distress. Maintaining O2 saturation in the 90s on room air. No IV fluids. He has been calm and cooperative. Follow-up blood cultures revealed no growth. Cerebrospinal fluid cultures revealed no growth. No new labs today. He remains on ceftriaxone. NicoDerm patch in place. Heparin for DVT prophylaxis. He remains on the CIWA protocol. He did require Ativan early this morning. The patient is seen today January 13, 2024 in follow-up on the regular medical floor. He is awake and alert in no acute distress. Resting comfortably in bed. Denies any worsening shortness of breath, cough or congestion. He is maintaining O2 saturations in the 90s on room air. Laying flat in bed. Sodium 132. Potassium 4.5. Bicarb 21. BUN 65. Creatinine 8.11. Glucose 72. AST 104. ALT 175. Creatinine kinase 2293. He remains on the CIWA protocol. Remains on Seroquel. NicoDerm patch in place. Continued on antibiotics in the form of ceftriaxone. Plan is for hemodialysis today. His urine output is improving. The patient is seen today January 14, 2024 in follow-up on the regular medical floor. He is laying flat in bed. Awake and alert in no acute distress. No worsening shortness of breath, cough or congestion. He has been calm and cooperative. Follow-up blood cultures revealed no growth. Cerebrospinal fluid cultures revealed no growth. Today's labs are pending. Urine output has been increasing. Nephrology is following and plans to try to hold off dialysis for now. Avoiding nephrotoxic medications. He remains on antibiotics in the form of ceftriaxone. Heparin for DVT prophylaxis. NicoDerm patch in place. Continued on Seroquel. Still requiring occasional Ativan. On today's evaluation of 01/15/2024, the patient is being seen for a follow-up. The patient is recovering from acute alcohol withdrawal syndrome. He did encounter some metabolic encephalopathy and he seems to be more appropriate. The same time, the patient Had coagulase-negative bacteremia on 2 separate blood cultures and repeat blood cultures are essentially negative. The patient is currently on IV Rocephin. He is calm and comfortable and resting comfortably in bed. His pulse ox is 94% on room air oxygen. His white cell close of 12.3 with a hemoglobin of 7 and a platelet count of 287. Sodium is at 140, BUN is at 50 with a creatinine of 7.0 and a potassium level is at 5.1 and a bicarb level is at 19.4. The patient is currently undergoing hemodialysis. He is known to have history of alcoholism, hepatitis C, history of IV drug use, and during this current hospital stay, the patient also tested positive for RSV on 01/04/2024. He is following commands today. Answer questions appropriately. He is being seen by nephrology. He is going to undergo hemodialysis as the creatinine is at 7.0. Will monitor his renal recovery. Amlodipine was also added for tighter blood pressure control. On 01/16/2024, the patient is being seen for a follow-up. Doing well. No specific complaints. Resting comfortably in bed. Unable to complete a full dialysis session yesterday as the patient's dialysis catheter was malfunctioning and another catheter to be inserted at the later stage. Nephrology on the case and they are addressing the patient's need for dialysis. Meanwhile, the patient's urine output essentially low and the patient's BUN is at 50 with a creatinine of 7.0. Sodium is at 140. WBC count of 12.3 with a hemoglobin of 7. The patient has been voiding and the plan is for vascular surgery to exchange dialysis catheter to be followed up with dialysis session tomorrow. The patient is currently on room air oxygen. The patient is afebrile. He reports generalized weakness and fatigue. He is also complaining of episodic diarrhea. Tolerating his diet. Not taking any form of antibiotics at this point in time. Objective - Vital Signs Vital signs: Vital Signs Temp 98.6 F 01/16/24 10: Pulse 78 01/16/24 10: Resp 20 01/16/24 10:29 BP 148/80 02/27/24 10:29 Pulse Ox 90 L 01/16/24 10:29 FiO2 Intake & Output 01/15/24 01/16/24 01/16/24 18:59 06:59 18:59 Intake Total 900 Output Total 1900 Balance -1000 Weight 104 kg Intake: Hemodialysis 900 Output: Hemodialysis 1900 Other: Voiding Method Toilet Toilet Toilet # Voids 3 2 2 # Bowel Movements 1 - Exam GENERAL EXAM: Alert, calm, cooperative 38-year-old male, on room air, in no apparent distress. HEAD: Normocephalic. EYES: Normal reaction of pupils, equal size. NOSE: Clear with pink turbinates. THROAT: No erythema or exudates. NECK: No masses, no JVD. CHEST: No chest wall deformity. LUNGS: Equal air entry with no crackles, wheeze, rhonchi or dullness. CVS: S1 and S2 normal with no audible murmur, regular rhythm. ABDOMEN: No hepatosplenomegaly, normal bowel sounds, no guarding or rigidity. SPINE: No scoliosis or deformity SKIN: No rashes CENTRAL NERVOUS SYSTEM: No focal deficits, tone is normal in all 4 extremities. EXTREMITIES: There is no peripheral edema. No clubbing, no cyanosis. Peripheral pulses are intact. - Labs CBC & Chem 7: 01/15/24 06:05 01/15/24 06:05 Labs: Abnormal Lab Results - Last 24 Hours (Table) 01/15/24 01/15/24 Range/Units 12:18 12:18 C-Reactive Protein 7.00 H (0.00-0.80) mg/dL Procalcitonin 0.18 H (0.02-0.09) ng/mL Assessment and Plan Plan: Acute alcohol withdrawal syndrome, currently inactive and stable without any ongoing signs of alcohol withdrawal. Acute metabolic encephalopathy, improved Diarrhea, check stool for C. difficile colitis Possible bacteremia secondary to coagulase-negative staphylococci, likely contaminant. This is a coagulase-negative staph Hypothermia, resolved Acute transaminitis, AST and ALT are mildly elevated Acute RSV infection, no signs of any respiratory compromise Acute kidney injury secondary to rhabdomyolysis requiring hemodialysis, to be undergoing hemodialysis today History of alcoholism History of hepatitis C History of gastroesophageal reflux disease History of IV drug abuse History of pancreatitis History of bipolar disorder and depression Plan: Hemodialysis catheter needs to be changed and the patient will continue with hemodialysis per nephrology Currently stable and on room air Remains on the CIWA protocol Increase his activity as tolerated Continue Coreg Amlodipine 5 mg p.o. twice daily for tighter blood pressure control Seroquel 100 mg twice a day IV fluids with normal saline at rate of 40 cc an hour Monitor diarrhea and check stool for C. difficile if there is any persistent diarrhea. Noted the patient has not taken any antibiotics at this point in time. May require ECF placement and outpatient hemodialysis We will continue to follow
--- NOTE | 2024-01-16 15:28 | P.PN ---
Subjective Progress Note Date: 01/16/24 Principal diagnosis: Reason for follow-up is fever and a positive blood culture Patient is a 38-year-old male with a past medical history of GERD for hypertension hepatitis C pancreatitis reflux history of alcoholism patient was brought into the ER by EMS after apparently the patient was noticed to be facedown in the snow when the EMS got him up he was unable to speak patient was hypothermic and subsequently brought into the ER for further evaluation, on arrival to the ER the patient did have a fever did have elevated white count chest x-ray UA was negative abdominal soft LP was done last night which came back negative as well. On today's evaluation that is 01/16/2024,the patient remains to be afebrile, patient is on room air not requiring supplemental oxygen and denies any shortness of breath no chest pain or cough.Patient denies having any nausea or vomiting, complaining of some abdominal pain however was eating lunch without any problem no diarrhea has been reported. Patient did have a CRP of 7 Pro-Avery 0.98 blood culture negative Objective - Vital Signs Vital signs: Vital Signs Temp 98.5 F 01/16/24 14:00 Pulse 81 01/16/24 14:00 Resp 18 01/16/24 14:00 BP 152/75 01/16/24 14:00 Pulse Ox 93 L 01/16/24 14:00 FiO2 Intake & Output 01/15/24 01/16/24 01/16/24 18:59 06:59 18:59 Intake Total 900 Output Total 1900 Balance -1000 Weight 104 kg Intake: Hemodialysis 900 Output: Hemodialysis 1900 Other: Voiding Method Toilet Toilet Toilet # Voids 3 2 2 # Bowel Movements 1 - Exam GENERAL DESCRIPTION: Middle-age male lying in bed in no distress RESPIRATORY SYSTEM: Unlabored breathing , decreased breath sounds at bases HEART: S1 S2 regular rate and rhythm , ABDOMEN: Soft , no tenderness EXTREMITIES: No edema feet - Labs CBC & Chem 7: 01/15/24 06:05 01/15/24 06:05 Labs: Abnormal Lab Results - Last 24 Hours (Table) 01/15/24 01/15/24 Range/Units 12:18 12:18 C-Reactive Protein 7.00 H (0.00-0.80) mg/dL Procalcitonin 0.18 H (0.02-0.09) ng/mL Assessment and Plan (1) Fever with leukocytosis and leukocyte count greater than or equal to 20,000 Current Visit: Yes Status: Acute Code(s): D72.829 - ELEVATED WHITE BLOOD CELL COUNT, UNSPECIFIED SNOMED Code(s): 707549483 (2) Positive blood culture Current Visit: No Status: Acute Code(s): R78.81 - BACTEREMIA SNOMED Code(s): 615861707 Plan: 1patient presented hospital with episode of unresponsiveness by the EMS patient did have features of sepsis running a fever did have elevated white count, initial workup including a chest x-ray and UA has been negative the patient abdominal was soft on clinical examination and there was no evidence of any cellulitis with a 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 please excuse any grammatical, word or spelling errors.
[2024-01-16] MEDS: ACETAMINOPHEN TAB 325 MG TAB PO STA (21:16)
[2024-01-17] MEDS: hydrALAZINE HCL 20 MG/ML 1 ML VIAL IVP PRN (00:48)
[2024-01-17 06:43] LABS: ALT 83 U/L (4-49); AST 51 U/L (17-59); African American GFR (CKD) 17 (>60 ml/min/1.73 sqM); Albumin/Globulin Ratio 1.1; Alkaline Phosphatase 56 U/L (38-126); Anion Gap 6 mmol/L; Blood Urea Nitrogen 34 mg/dL (9-20); C Reactive Protein 7.3 mg/dL (<1.0); Calcium 8.8 mg/dL (8.4-10.2); Carbon Dioxide 26 mmol/L (22-30); Chloride 110 mmol/L (98-107); Globulin 2.8 g/dL; Glucose 99 mg/dL (74-99); Magnesium 1.4 mg/dL (1.6-2.3); Non-African American GFR(CKD) 14 (>60 ml/min/1.73 sqM); Phosphorus 5.3 mg/dL (2.5-4.5); Sodium 142 mmol/L (137-145); Total Bilirubin 0.5 mg/dL (0.2-1.3); Total Protein 5.8 g/dL (6.3-8.2)
[2024-01-17 08:37] LABS: Basophils # (A) 0.05 X 10*3/uL (0.00-0.10); Basophils % (A) 0.5 %; Eosinophils # (A) 0.24 X 10*3/uL (0.04-0.35); Eosinophils % (A) 2.5 %; HCT 23.2 % (39.6-50.0); HGB 7.4 g/dL (13.0-17.0); Lymphocytes % (A) 11.5 %; MCH 28.2 pg (27.0-32.0); MCHC 31.9 g/dL (32.0-37.0); MCV 88.5 FL (80.0-97.0); Mean Platelet Volume 11.5 FL (9.5-12.2); Monocytes # (A) 1.07 X 10*3/uL (0.20-1.00); Monocytes % (A) 11.2 %; NRBC Per 100 WBC 0 X 10*3/uL (0.00-0.01); Neutrophils # (A) 7.07 X 10*3/uL (1.80-7.70); Neutrophils % (A) 73.7 %; Platelet Count 306 X 10*3/uL (140-440); RBC 2.62 X 10*6/uL (4.40-5.60); RDW 17.2 % (11.5-14.5); WBC 9.59 X 10*3/uL (4.50-10.00)
--- NOTE | 2024-01-17 10:51 | P.PN ---
Subjective Patient is seen in follow-up for acute kidney injury. Currently undergoing dialysis. Admits to good urine output. Creatinine 4.82 this morning. No active complaints. Vital signs are stable. General: No acute distress. HEENT: Head exam is unremarkable. LUNGS: No audible rhonchi or wheezes. HEART: Rate and Rhythm are regular. ABDOMEN: Nontender. EXTREMITITES: No edema. Objective - Vital Signs Vital signs: Vital Signs Temp 98.0 F 01/17/24 07:31 Pulse 80 01/17/24 07:31 Resp 19 01/17/24 07:31 BP 191/102 01/17/24 07:31 Pulse Ox 94 L 01/17/24 07:31 FiO2 Intake & Output 01/16/24 01/17/24 01/17/24 18:59 06:59 18:59 Intake Total 980 Output Total 2950 Balance -1970 Weight 100 kg Intake: Oral 980 Output: Urine 2950 Other: Voiding Method Toilet Toilet # Voids 4 2 - Labs CBC & Chem 7: 01/17/24 05:47 01/17/24 05:47 Labs: Abnormal Lab Results - Last 24 Hours (Table) 01/17/24 01/17/24 Range/Units 05:47 05:47 RBC 2.62 L (4.40-5.60) X 10*6/uL Hgb 7.4 L (13.0-17.0) g/dL Hct 23.2 L (39.6-50.0) % MCHC 31.9 L (32.0-37.0) g/dL RDW 17.2 H (11.5-14.5) % Immature Gran # 0.06 H (0.00-0.04) X 10*3/uL Monocytes # 1.07 H (0.20-1.00) X 10*3/uL Chloride 110 H (98-107) mmol/L BUN 34 H (9-20) mg/dL Creatinine 4.82 H (0.66-1.25) mg/dL Phosphorus 5.3 H (2.5-4.5) mg/dL Magnesium 1.4 L (1.6-2.3) mg/dL ALT 83 H (4-49) U/L C-Reactive Protein 7.3 H (<1.0) mg/dL Total Protein 5.8 L (6.3-8.2) g/dL Albumin 3.0 L (3.5-5.0) g/dL Microbiology - Last 24 Hours (Table) 01/15/24 12:18 Blood Culture - Preliminary Blood Assessment and Plan Plan: Assessment: 1. Acute kidney injury secondary to ATN secondary to severe sepsis and rhabdomyolysis. Baseline creatinine 0.5-0.6 and >8 this admission. Started on hemodialysis January 05, 2024. No hydronephrosis noted on abdominal ultrasound. Creatinine 4.82 today. 2. Rhabdomyolysis secondary to fall/immobility. CK levels improved. 3. Severe sepsis secondary to staph bacteremia. On IV antibiotics. 4. Metabolic acidosis secondary to acute kidney injury. Improved from admission. 5. Hyponatremia secondary to acute kidney injury. Improved postdialysis. 6. Hypocalcemia secondary to acute kidney injury and rhabdomyolysis. Improved. 7. Benign hypertension. 8. Hyperphosphatemia secondary to acute kidney injury. Phosphorus level 5.3 today. On Renvela with meals. 9. Hypomagnesemia from poor intake. Plan: Currently seen while undergoing hemodialysis. Stop hemodialysis treatment now - received 1 hour of hemodialysis today. Maintain normal saline. Strict I's and O's. Discontinue femoral dialysis catheter. Will need permacath if there is further need for hemodialysis. Monitor for renal recovery. Avoid nephrotoxins. Add scheduled dose of hydralazine. Hold for systolic blood pressure less than 120. Replace magnesium.
[2024-01-17] MEDS ORDERED: ONDANSETRON 4 MG/2 ML VIAL IVP PRN (11:22)
[2024-01-17] MEDS: hydrALAZINE HCL 50 MG TAB PO SCH (11:39)
[2024-01-17] MEDS: MAGNESIUM SULFATE-D5W PMX 1 GM in DEXTROSE/WATER 1 100ML.BAG IVPB SCH (11:40)
--- NOTE | 2024-01-17 12:15 | P.PN ---
Subjective Progress Note Date: 01/17/24 Principal diagnosis: Reason for follow-up is fever and a positive blood culture Patient is a 38-year-old male with a past medical history of GERD for hypertension hepatitis C pancreatitis reflux history of alcoholism patient was brought into the ER by EMS after apparently the patient was noticed to be facedown in the snow when the EMS got him up he was unable to speak patient was hypothermic and subsequently brought into the ER for further evaluation, on arrival to the ER the patient did have a fever did have elevated white count chest x-ray UA was negative abdominal soft LP was done last night which came back negative as well. On today's evaluation that is 01/17/2024, the patient continues to be afebrile, the patient is on room air and breathing comfortably, the Pt denies having any chest pain or cough, the patient has been complain of some abdominal pain also complaining of some diarrhea and is asking for Dilaudid. The patient white count normalized to 9.59, creatinine 4.82 blood culture repeat so far negative Objective - Vital Signs Vital signs: Vital Signs Temp 98.6 F 01/17/24 11:00 Pulse 68 01/17/24 11:00 Resp 18 01/17/24 11:00 BP 178/102 01/17/24 11:00 Pulse Ox 94 L 01/17/24 07:31 FiO2 Intake & Output 01/16/24 01/17/24 01/17/24 18:59 06:59 18:59 Intake Total 980 400 Output Total 2950 299 Balance -1970 101 Weight 100 kg Intake: Oral 980 Hemodialysis 400 Output: Urine 2950 Hemodialysis 299 Other: Voiding Method Toilet Toilet # Voids 4 2 - Exam GENERAL DESCRIPTION: Middle-age male lying in bed in no distress RESPIRATORY SYSTEM: Unlabored breathing , decreased breath sounds at bases HEART: S1 S2 regular rate and rhythm , ABDOMEN: Soft , no tenderness EXTREMITIES: No edema feet - Labs CBC & Chem 7: 01/17/24 05:47 01/17/24 05:47 Labs: Abnormal Lab Results - Last 24 Hours (Table) 01/17/24 01/17/24 Range/Units 05:47 05:47 RBC 2.62 L (4.40-5.60) X 10*6/uL Hgb 7.4 L (13.0-17.0) g/dL Hct 23.2 L (39.6-50.0) % MCHC 31.9 L (32.0-37.0) g/dL RDW 17.2 H (11.5-14.5) % Immature Gran # 0.06 H (0.00-0.04) X 10*3/uL Monocytes # 1.07 H (0.20-1.00) X 10*3/uL Chloride 110 H (98-107) mmol/L BUN 34 H (9-20) mg/dL Creatinine 4.82 H (0.66-1.25) mg/dL Phosphorus 5.3 H (2.5-4.5) mg/dL Magnesium 1.4 L (1.6-2.3) mg/dL ALT 83 H (4-49) U/L C-Reactive Protein 7.3 H (<1.0) mg/dL Total Protein 5.8 L (6.3-8.2) g/dL Albumin 3.0 L (3.5-5.0) g/dL Microbiology - Last 24 Hours (Table) 01/15/24 12:18 Blood Culture - Preliminary Blood Assessment and Plan (1) Fever with leukocytosis and leukocyte count greater than or equal to 20,000 Current Visit: Yes Status: Acute Code(s): D72.829 - ELEVATED WHITE BLOOD CELL COUNT, UNSPECIFIED SNOMED Code(s): 015751583 (2) Positive blood culture Current Visit: No Status: Acute Code(s): R78.81 - BACTEREMIA SNOMED Code(s): 330978989 Plan: 1patient presented hospital with episode of unresponsiveness by the EMS patient did have features of sepsis running a fever did have elevated white count, initial workup including a chest x-ray and UA has been negative the patient abdominal was soft on clinical examination and there was no evidence of any cellulitis with a 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 please excuse any grammatical, word or spelling errors. Time with Patient: Less than 30
--- NOTE | 2024-01-17 14:05 | P.PN ---
Subjective Progress Note Date: 01/17/24 patient is a 38-year-old gentleman past medical significant for alcohol abuse, liver disease who presented to the ER for altered mental status. Patient has a history of alcohol abuse and has multiple admissions to this hospital for alcohol detox. Patient was brought in the ED by EMS after being found lying facedown in snow. There was no obvious sign of any trauma. Patient was unable to respond to any questions. EMS brought him immediately to the ER Initial lab work done in the ER showed WBC 22, hemoglobin 16.4, platelet count 274, sodium 152, potassium 5.1, BUN 38, creatinine 3.47, glucose 105, bilirubin 0.7, AST 1723, ALT 399, troponin 2.39 EKG done in the ER showed heart rate of 125, no ST segment elevation or depression seen, no T-wave inversions seen. Chest x-ray done in the ER showed no acute cardiopulmonary process CT head done showed no acute intracranial process CT cervical spine negative for any acute fracture or dislocation Patient admitted to internal medicine service. On my interview with patient, patient was much more responsive, kept on asking about getting soda and water. Stated that he has been laying on the ground for more than 15 hours. Patient is currently running a fever. Denies any chest pain or shortness of breath. Complaining of generalized body aches 01/05. Patient seen and examined. Blood work done this morning showed WBC 10.5, hemoglobin 9.8, platelet count 137, sodium 132, potassium 3.8, BUN 60, creatinine 4.02, calcium 6, CK greater than 380985. 2D echo done showed LVEF of 50 to 55%, no mitral regurg, trace tricuspid regurg 01/06. Patient seen and examined. Currently in restraints. Currently getting dialysis. Complaining of pain in his tongue, apparently bit his tongue during the fall. 01/07. Patient seen and examined. Continues to be in ICU. Currently on Precedex and IV fluids. Patient currently off restraints, is alert to self. 01/08. Patient seen and examined.Blood work done this morning showed WBC 8.7, hemoglobin 9.3, sodium 137, potassium 4.7, BUN 66, creatinine 6.25, AST is 1516, ALT is 546, currently on 2 L of oxygen. Patient is alert, answering questions, currently on Precedex drip. 01/09/2024 Patient is in MICU. Currently lying in the bed. Awake and alert but lethargic and drowsy. Currently on room air. Tolerating oral diet. Laboratory data showed WBC 7.4 hemoglobin 7.8 and platelets 124, sodium 1:30 potassium 3.6 chloride 103 bicarb is 22 BUN 59 and creatinine 5.67 01/10/2024 Patient is in the MICU. Awake alert and oriented. Seems to be more awake today. On room air. No complaints of chest pain or shortness breath. Patient does have good oral input. No fever no chills. Laboratory data showed WBC 6.7 hemoglobin 8.0 and platelets 136, sodium 1:30 potassium 3.3 chloride 103 bicarb is 26 BUN 40 and creatinine trending down to 4.63 today. Calcium 7.1 and pro calcitonin was 1.46. Patient is on antibiotics ceftriaxone. ID, nephrology and pulmonary is on board. 01/11/2024 Patient is resting in the bed. On room air. Able to ambulate in the room. Patient is being transferred to ICU. Urine output has been improving. Last hemodialysis on 01/09/2024. Patient has been afebrile. Repeat blood cultures negative. Laboratory data showed no illicit 5.9 hemoglobin 9.2 and platelets 154 sodium 133 potassium 2.3 and chloride 103 and bicarb 23 BUN 53 and creatinine 6.39. Patient is on normal saline at 40 mL per hour. On antibiotics ceftriaxone. 01/12/2024 Patient is currently in the telemetry unit. Patient is lying in the bed. Awake alert and orient x 3. No complaints of chest pain. Denies any worsening shortness of breath. No cough or sputum function. Patient is being cannula antibiotics ceftriaxone. Currently on IV hydration with normal saline at 40 cc/h. Patient is tolerating dysphagia level 3 diet. Laboratory pressure WBC 7.0 hemoglobin 7.9 and platelets 211 Sodium 130 potassium 4.2 chloride 104 bicarb is 19 BUN 16 creatinine went up to 7.41 again today. 01/13. Patient seen and examined. Patient has swelling of upper extremities, states he is making urine. Patient is calm. Alert and oriented. 01/14. Patient seen and examined. Patient was sitting in the chair, stated he took a shower this morning feels much better compared to yesterday. Denies any fever or chills. Vital signs stable 01/15. Patient seen and examined. Lab work done in the morning showed WBC 12.36, hemoglobin 7, sodium is 140, potassium is 5.1, BUN is 50, creatinine 7. Vital signs are temperature 98.7, heart rate of 77, respiratory 18, blood pressure 167/101 01/16. Patient seen and examined. Complaining of diarrhea. Tolerating diet 01/17/2024 Patient is seen in follow-up today with nephrology following closely. Patient received about 1 hour of ultrafiltration today and dialysis catheter has been malfunctioning recommending to remove this catheter and monitor over the next few days with follow-up labs. Will follow-up with nephrology to discuss further with discharge planning if patient will require permanent catheter placement and continued outpatient dialysis. Patient reporting some abdominal pain with nausea and will add Zofran and continue with as needed medications. Patient has completed ceftriaxone and infectious diseases following closely. Social work following as well and working with guardian on discharge planning. Patient does have CIWA protocol although not actively withdrawing. Recommend as needed Ativan orally. Encouraged increase activity as tolerated. REVIEW OF SYSTEMS: CONSTITUTIONAL: No fever, no malaise,. CARDIOVASCULAR: No chest pain, no palpitations, no syncope. PULMONARY: No shortness of breath, no cough, GASTROINTESTINAL: Reports occasional nausea, no vomiting, reports occasional abdominal pain. NEUROLOGICAL: No headaches, no weakness PHYSICAL EXAMINATION: GENERAL: The patient is alert and oriented x3, not in any acute distress. Well developed, well nourished. Appears older than stated age, obese HEENT: Pupils are round and equally reacting to light. EOMI. No scleral icterus. No conjunctival pallor. Normocephalic, atraumatic. No pharyngeal erythema. No thyromegaly. CARDIOVASCULAR: S1 and S2 present. No murmurs, rubs, or gallops. PULMONARY: Chest is clear to auscultation, no wheezing or crackles. ABDOMEN: Soft, nontender, nondistended, normoactive bowel sounds. No palpable organomegaly. MUSCULOSKELETAL: 1Plus edema of lower extremities bilaterally EXTREMITIES: No cyanosis, clubbing,. NEUROLOGICAL: Gross neurological examination did not reveal any focal deficits. SKIN: No rashes. Assessment: Acute metabolic encephalopathy. Improving. Acute kidney injury secondary to ATN due to infection and rhabdomyolysis. requiring hemodialysis. Started on 01/05/2024. Temporary cath removed today Gram-positive Bacteremia. Coagulase-negative staph. Repeat blood cultures negative. Sepsis Acute Rhabdomyolysis secondary to fall Hypothermia Hypernatremia. Resolved. Hypocalcemia secondary to acute kidney injury and rhabdomyolysis. Leukocytosis Elevated troponin level. Ratio of CPK and troponin suggest skeletal muscle injury Acute transaminitis Fall History of alcohol abuse Acute alcohol withdrawal symptoms History of depression Obesity with a BMI of 33.5 GI prophylaxis DVT prophylaxis Full code Plan: Patient maintained on gentle IV hydration with nephrology following closely. Temporary catheter removed today and holding off on dialysis and will follow-up on repeat labs and monitor closely if patient will require outpatient dialysis Case management/social work following working on discharge planning and awaiting further nephrology instruction if patient will require hemodialysis in the outpatient setting Patient reporting some nausea and occasional abdominal pain and will add bowel regimen and antinausea medications Patient was continued on CIWA protocol although not actively withdrawing and will continue with as needed oral Ativan Patient was also continued on antibiotics with infectious disease following and most recent cultures have remained negative and being monitored off antibiotic therapy Will follow-up with repeat labs and monitor kidney functions along with e lectrolytes Encouraged to increase activity as tolerated Due to multiple complex medical issues, prognosis is guarded The impression and plan of care has been dictated by Marlena Roque, Nurse Practitioner as directed. Dr. Merle MD I have performed a history and examination and MDM of this patient, discussed the same with the dictator, and agree with the dictator's assessment and plan as written ,documented as a scribe. Based on total visit time, I have performed more than 50% of the visit. Objective - Vital Signs Vital signs: Vital Signs Temp 98.0 F 01/17/24 07:31 Pulse 80 01/17/24 07:31 Resp 19 01/17/24 07:31 BP 191/102 01/17/24 07:31 Pulse Ox 94 L 01/17/24 07:31 FiO2 Intake & Output 01/16/24 01/17/24 01/17/24 18:59 06:59 18:59 Intake Total 980 Output Total 2950 Balance -1970 Weight 100 kg Intake: Oral 980 Output: Urine 2950 Other: Voiding Method Toilet Toilet # Voids 4 2 - Labs CBC & Chem 7: 01/17/24 05:47 01/17/24 05:47 Labs: Abnormal Lab Results - Last 24 Hours (Table) 01/17/24 01/17/24 Range/Units 05:47 05:47 RBC 2.62 L (4.40-5.60) X 10*6/uL Hgb 7.4 L (13.0-17.0) g/dL Hct 23.2 L (39.6-50.0) % MCHC 31.9 L (32.0-37.0) g/dL RDW 17.2 H (11.5-14.5) % Immature Gran # 0.06 H (0.00-0.04) X 10*3/uL Monocytes # 1.07 H (0.20-1.00) X 10*3/uL Chloride 110 H (98-107) mmol/L BUN 34 H (9-20) mg/dL Creatinine 4.82 H (0.66-1.25) mg/dL Phosphorus 5.3 H (2.5-4.5) mg/dL Magnesium 1.4 L (1.6-2.3) mg/dL ALT 83 H (4-49) U/L C-Reactive Protein 7.3 H (<1.0) mg/dL Total Protein 5.8 L (6.3-8.2) g/dL Albumin 3.0 L (3.5-5.0) g/dL Microbiology - Last 24 Hours (Table) 01/15/24 12:18 Blood Culture - Preliminary Blood
--- NOTE | 2024-01-17 18:56 | P.PN ---
Subjective Progress Note Date: 01/17/24 This is a 38-year-old white male with history of multiple medical problems including alcoholism, hepatitis C, hypertension, GERD, patient was brought into the ER yesterday after he was noted to be face down in the snow, upon EMS arrival, the patient was hypothermic, and altered mental status. In the ER, the patient was noted to have temp of 102.6, he was tachycardic, and was not hypotensive or hypoxic. Workup in the ER included CBC which showed leukocytosis. His bicarb was noted to be low, patient was noted to have anion gap metabolic acidosis, he was also noted to have renal failure with a BUN of 51 creatinine 3.45. His CPK was significantly elevated almost 92,000, troponin elevated at 1.6, and liver enzymes were also elevated including AST and ALT. There was evidence of blood in the urine. No drug screen was done at the time of arrival, but his alcohol level was less than 10. His RSV PCR was positive. Drug screen in the ICU was positive for barbiturates, amphetamine, methamphetami ne, and benzodiazepines. Patient was seen by many consultants including infectious disease, patient was started empirically on antibiotics in the form of Rocephin and vancomycin, and infectious disease recommended a lumbar puncture on this patient. Initial chemistry on the spinal fluid seems to be unremarkable. Final report is pending. His blood cultures today are positive for gram-positive cocci in clusters. Patient was seen by nephrology today, and recommending starting the patient on hemodialysis. Patient was felt to have acute kidney injury secondary to ATN, and severe sepsis and rhabdomyolysis, oliguric, unresponsive to diuretics, and there was no hydronephrosis on the abdominal ultrasound. At any rate patient is scheduled to have a dialysis catheter placement today. Last night the patient was on the regular medical floor, I was made aware of this patient because his CIWA score was 20,, patient was already on a bicarb drip, and I have recommended transferring the patient out of the floor to the ICU saw this patient this morning, reviewed all his labs and workup, remains on bicarb drip, empirically on antibiotics for his presumptive severe sepsis and bacteremia as noted on blood cultures today, patient continues to have significantly elevated CPK, continues to have w orsening renal failure. Blood pressure was high and I recommended Cleviprex at 2 mg/h. Also recommended a drug screen to be done. Patient did not require Precedex, he is agitation is well-controlled with Ativan. According to the patient his last alcohol drink was 2 days ago. Patient is not a great historian, seems to mumble but does not give adequate history. And he is by all means encephalopathic. But able to protect his airways, and able to cough and clear secretions. Hence did not feel the need to intubate this patient at this point. Procalcitonin level this morning is 45.9 Patient was reevaluated today on 01/06/2024, his blood cultures are actually now coagulase-negative staph, most likely blood cultures are contaminated. Patient is still restless and agitated easily, remains in the ICU, he will be undergoing dialysis today, he had dialysis yesterday. Complaining of hurting all over, patient remains a bit confused, and lethargic. His creatinine is high at 4.3, hemoglobin is down from 16.3 on admission now 10.3, platelets are coming down, hence I am stopping his heparin. CPK remains high at 158,000, patient is still receiving fluids at 200 cc/h, and he will have more dialysis today. Patient is extremely oliguric. Liver enzymes are also elevated with a AST of 2498, and ALT 573, improving compared to yesterday Patient was reevaluated today on 01/07/2024, remains in the ICU, marginal at best. On 3 L nasal cannula, remains a bit encephalopathic with a slight im provement in his overall mental status patient knows that he is at [facility], he realized the year is 2023. Patient continues to have marginal urine output, he is oliguric, intermittently on hemodialysis, patient remains on daptomycin and ceftriaxone, blood cultures were contaminated with staph/coagulase negative. Spinal fluid cultures have been negative CPK is coming down today, he is down to 89,000 from 159,000 yesterday. Renal functioning is about the same with a creatinine 4.60 and BUN of 49, Liver enzymes are steadily improving. And ammonia level is less than 90. His IV fluid remains at 200 cc/h patient is receiving MVI. Progress note dated January 08, 2024. 38-year-old male who was admitted to the hospital on 04 January. The patient came to the intensive care unit on the . Currently, the patient is seen today in room 255. The patient is on room air. He is getting saline at 130 cc an hour. He continues on dexmedetomidine at 0.4 mcg/kg/h. The patient has had hemodialysis, twice, but is planning to have hemodialysis again today. Will add some Haldol, Seroquel, and clonidine patch to his regimen, to get him off the dexmedetomidine. Current labs include white count 8.7, hemoglobin 9.3, hematocrit 27.8, and platelet count 108,000. Sodium 131, potassium 4.7, chlorides 105, CO2 14, anion gap 12, BUN 66, creatinine 6.25. AST is 1516. ALT is 546. CK is down from 89,000, to 73,807. Blood cultures are positive for coag negative staph. No chest x-ray to report on. Progress note dated January 09, 2024. 38-year-old male who was admitted to the hospital on January 04. The patient came to the intensive care unit, on the . Currently, the patient is seen today in room 255. The patient continues on room air. The patient is getting saline at 75 cc an hour. He will have another hemodialysis session today, which is #4. Yesterday, he had hemodialysis, and 2 L was removed. He is currently off the dexmedetomidine. White count 7.4, hemoglobin 7.8, hematocrit 22.8, platelet count 124,000. Sodium 130, potassium 3.6, chlorides 103, CO2 22, BUN 59, creatinine 5.67. His calcium is 7.0. Blood cultures were positive for coag negative staph. Progress note dated January 10, 2024. 38-year-old male again seen today in room 255, the intensive care unit. Currently, the patient is on room air. He is getting saline at 40 cc an hour. According to his nurse, he had an uneventful night. In our opinion, the patient is stable to be transferred out of the intensive care unit. Current labs include a white count of 6.7, hemoglobin 8, hematocrit 23.9, and a platelet count of 136,000. Sodium 130, potassium 3.3, chlorides 103, CO2 26, BUN 40, creatinine 4.63. His CK is down to 36,783. Procalcitonin level is 1.46. Progress note dated January 11, 2024. 38-year-old male seen again in room 255. The patient is currently doing better. The patient is on room air. He is getting saline at 40 cc an hour. According to his nurse, the patient had an uneventful night. The patient is calm, and not agitated. No new labs today. Chest x-ray suggest some bilateral subsegmental atelectasis. The patient is seen today January 12, 2024 in follow-up on the regular medical floor. He is currently resting comfortably in bed. Awake and alert in no acute distress. Maintaining O2 saturation in the 90s on room air. No IV fluids. He has been calm and cooperative. Follow-up blood cultures revealed no growth. Cerebrospinal fluid cultures revealed no growth. No new labs today. He remains on ceftriaxone. NicoDerm patch in place. Heparin for DVT prophylaxis. He remains on the CIWA protocol. He did require Ativan early this morning. The patient is seen today January 13, 2024 in follow-up on the regular medical floor. He is awake and alert in no acute distress. Resting comfortably in bed. Denies any worsening shortness of breath, cough or congestion. He is maintaining O2 saturations in the 90s on room air. Laying flat in bed. Sodium 132. Potassium 4.5. Bicarb 21. BUN 65. Creatinine 8.11. Glucose 72. AST 104. ALT 175. Creatinine kinase 2293. He remains on the CIWA protocol. Remains on Seroquel. NicoDerm patch in place. Continued on antibiotics in the form of ceftriaxone. Plan is for hemodialysis today. His urine output is improving. The patient is seen today January 14, 2024 in follow-up on the regular medical floor. He is laying flat in bed. Awake and alert in no acute distress. No worsening shortness of breath, cough or congestion. He has been calm and cooperative. Follow-up blood cultures revealed no growth. Cerebrospinal fluid cultures revealed no growth. Today's labs are pending. Urine output has been increasing. Nephrology is following and plans to try to hold off dialysis for now. Avoiding nephrotoxic medications. He remains on antibiotics in the form of ceftriaxone. Heparin for DVT prophylaxis. NicoDerm patch in place. Continued on Seroquel. Still requiring occasional Ativan. On today's evaluation of 01/15/2024, the patient is being seen for a follow-up. The patient is recovering from acute alcohol withdrawal syndrome. He did encounter some metabolic encephalopathy and he seems to be more appropriate. The same time, the patient Had coagulase-negative bacteremia on 2 separate blood cultures and repeat blood cultures are essentially negative. The patient is currently on IV Rocephin. He is calm and comfortable and resting comfortably in bed. His pulse ox is 94% on room air oxygen. His white cell close of 12.3 with a hemoglobin of 7 and a platelet count of 287. Sodium is at 140, BUN is at 50 with a creatinine of 7.0 and a potassium level is at 5.1 and a bicarb level is at 19.4. The patient is currently undergoing hemodialysis. He is known to have history of alcoholism, hepatitis C, history of IV drug use, and during this current hospital stay, the patient also tested positive for RSV on 01/04/2024. He is following commands today. Answer questions appropriately. He is being seen by nephrology. He is going to undergo hemodialysis as the creatinine is at 7.0. Will monitor his renal recovery. Amlodipine was also added for tighter blood pressure control. On 01/16/2024, the patient is being seen for a follow-up. Doing well. No specific complaints. Resting comfortably in bed. Unable to complete a full dialysis session yesterday as the patient's dialysis catheter was malfunctioning and another catheter to be inserted at the later stage. Nephrology on the case and they are addressing the patient's need for dialysis. Meanwhile, the patient's urine output essentially low and the patient's BUN is at 50 with a creatinine of 7.0. Sodium is at 140. WBC count of 12.3 with a hemoglobin of 7. The patient has been voiding and the plan is for vascular surgery to exchange dialysis catheter to be followed up with dialysis session tomorrow. The patient is currently on room air oxygen. The patient is afebrile. He reports generalized weakness and fatigue. He is also complaining of episodic diarrhea. Tolerating his diet. Not taking any form of antibiotics at this point in time. On today's evaluation of 01/17/2024, the patient is being seen for a follow-up. The patient is to undergo hemodialysis today. Following that, the dialysis catheter is to be removed and possibly to be replaced at a later stage depending on his progress. His white cell count is at 9.5 with a hemoglobin of 7.4. BUN is at 34 with a creatinine of 4.8 and a sodium levels at 142. Procalcitonin level is at 0.18. Nephrology is on the case. Note that the patient has a normal baseline creatinine. He did undergo a rhabdomyolysis secondary to a fall and immobility and his CPK improved. He was also treated for staphylococcal bacteremia and the patient completed IV antibiotics. Repeat blood cultures have been negative and the most recent pending blood cultures from 01/15/2028 and has shown no interval growth. His vitals are stable. He is on room air oxygen with a pulse ox of 97%. Blood pressure is slightly elevated and the patient is currently on clonidine patch, amlodipine 5 mg p.o. twice a day and he is also on Coreg 3.125 mg twice a day. Objective - Vital Signs Vital signs: Vital Signs Temp 98.0 F 01/17/24 07:31 Pulse 80 01/17/24 07:31 Resp 19 01/17/24 07:31 BP 191/102 01/17/24 07:31 Pulse Ox 94 L 01/17/24 07:31 FiO2 Intake & Output 01/16/24 01/17/24 01/17/24 18:59 06:59 18:59 Intake Total 980 Output Total 2950 Balance -1970 Weight 100 kg Intake: Oral 980 Output: Urine 2950 Other: Voiding Method Toilet Toilet # Voids 4 2 - Exam GENERAL EXAM: Alert, calm, cooperative 38-year-old male, on room air, in no a pparent distress. HEAD: Normocephalic. EYES: Normal reaction of pupils, equal size. NOSE: Clear with pink turbinates. THROAT: No erythema or exudates. NECK: No masses, no JVD. CHEST: No chest wall deformity. LUNGS: Equal air entry with no crackles, wheeze, rhonchi or dullness. CVS: S1 and S2 normal with no audible murmur, regular rhythm. ABDOMEN: No hepatosplenomegaly, normal bowel sounds, no guarding or rigidity. SPINE: No scoliosis or deformity SKIN: No rashes CENTRAL NERVOUS SYSTEM: No focal deficits, tone is normal in all 4 extremities. EXTREMITIES: There is no peripheral edema. No clubbing, no cyanosis. Peripheral pulses are intact. - Labs CBC & Chem 7: 01/17/24 05:47 01/17/24 05:47 Labs: Abnormal Lab Results - Last 24 Hours (Table) 01/17/24 01/17/24 Range/Units 05:47 05:47 RBC 2.62 L (4.40-5.60) X 10*6/uL Hgb 7.4 L (13.0-17.0) g/dL Hct 23.2 L (39.6-50.0) % MCHC 31.9 L (32.0-37.0) g/dL RDW 17.2 H (11.5-14.5) % Immature Gran # 0.06 H (0.00-0.04) X 10*3/uL Monocytes # 1.07 H (0.20-1.00) X 10*3/uL Chloride 110 H (98-107) mmol/L BUN 34 H (9-20) mg/dL Creatinine 4.82 H (0.66-1.25) mg/dL Phosphorus 5.3 H (2.5-4.5) mg/dL Magnesium 1.4 L (1.6-2.3) mg/dL ALT 83 H (4-49) U/L C-Reactive Protein 7.3 H (<1.0) mg/dL Total Protein 5.8 L (6.3-8.2) g/dL Albumin 3.0 L (3.5-5.0) g/dL Microbiology - Last 24 Hours (Table) 01/15/24 12:18 Blood Culture - Preliminary Blood Assessment and Plan Plan: Acute alcohol withdrawal syndrome, currently inactive and stable without any ongoing signs of alcohol withdrawal. Mental status is stable for now Acute metabolic encephalopathy, improved Diarrhea, check stool for C. difficile colitis Possible bacteremia secondary to coagulase-negative staphylococci, likely contaminant. This is a coagulase-negative staph. The patient is currently on no antibiotics. Hypothermia, resolved Acute transaminitis, AST and ALT are mildly elevated Acute RSV infection, no signs of any respiratory compromise Acute kidney injury secondary to rhabdomyolysis requiring hemodialysis, to be undergoing hemodialysis today History of alcoholism History of hepatitis C History of gastroesophageal reflux disease History of IV drug abuse History of pancreatitis History of bipolar disorder and depression Plan: H the patient is to undergo hemodialysis today and following that the catheter to be removed to be replaced by permacath Currently stable and on room air Remains on the CIWA protocol Increase his activity as tolerated Continue Coreg Amlodipine 5 mg p.o. twice daily for tighter blood pressure control Monitor blood pressure Seroquel 100 mg twice a day IV fluids with normal saline at rate of 40 cc an hour Monitor diarrhea and check stool for C. difficile if there is any persistent diarrhea. Noted the patient has not taken any antibiotics at this point in time. May require ECF placement and outpatient hemodialysis We will continue to follow
[2024-01-17] MEDS: LORazepam 1 MG TAB PO PRN (19:51)
--- NOTE | 2024-01-17 21:44 | PCN ---
PROCEDURE NOTE PROCEDURE: Removal of dialysis catheter right femoral approach. DESCRIPTION OF PROCEDURE: Right groin was prepped and drapes applied in a sterile manner. A stitch was removed after the catheter was removed. Pressure dressing applied. Pressure held. The patient tolerated the procedure well. MIGUEL / TEETEE: [id number] /
[2024-01-18 08:39] LABS: Magnesium 1.8 mg/dL (1.5-2.4)
[2024-01-18 09:10] LABS: BUN/Creat Ratio 5.83 Ratio (12.00-20.00); Blood Urea Nitrogen 23.9 mg/dL (9.0-27.0); Calcium 8.9 mg/dL (8.7-10.3); Carbon Dioxide 22.7 mmol/L (21.6-31.8); Chloride 108 mmol/L (96-109); Glucose 110 mg/dL (70-110); Potassium 3.7 mmol/L (3.5-5.5); Sodium 144 mmol/L (135-145)
--- NOTE | 2024-01-18 10:50 | P.PN ---
Subjective Patient is seen in follow-up for acute kidney injury. Last hemodialysis January 17, 2024 for 1 hour. Creatinine 4.1 today. Admits to good urine output. No active complaints. Vital signs are stable. General: No acute distress. HEENT: Head exam is unremarkable. LUNGS: No audible rhonchi or wheezes. HEART: Rate and Rhythm are regular. ABDOMEN: Nontender. EXTREMITITES: No edema. Objective - Vital Signs Vital signs: Vital Signs Temp 99.3 F 01/18/24 07:35 Pulse 80 01/18/24 07:35 Resp 16 01/18/24 07:35 BP 169/102 01/18/24 07:35 Pulse Ox 97 01/18/24 08:49 FiO2 Intake & Output 01/17/24 01/18/24 01/18/24 18:59 06:59 18:59 Intake Total 1150 1760 118 Output Total 2199 1100 Balance -1049 660 118 Weight 93.5 kg Intake: IV 320 Sodium Chloride 0.9% 1, 320 000 ml @ 40 mls/hr IV . Q24H [facility] Rx#:[id number] Intake, IV Titration 200 Amount Magnesium Sulfate-D5w Pmx 200 1 gm In Dextrose/Water 1 100ml.bag @ 100 mls/hr IVPB Q1H [facility] Rx#: [id number] Oral 230 1760 118 Hemodialysis 400 Output: Urine 1900 1100 Hemodialysis 299 Other: Voiding Method Toilet Urinal - Labs CBC & Chem 7: 01/17/24 05:47 01/18/24 05:30 Labs: Abnormal Lab Results - Last 24 Hours (Table) 01/18/24 Range/Units 05:30 Anion Gap 13.30 H (4.00-12.00) mmol/L Creatinine 4.1 H (0.6-1.5) mg/dL Est GFR (CKD-EPI) 18 L (>=60) BUN/Creatinine Ratio 5.83 L (12.00-20.00) Ratio Microbiology - Last 24 Hours (Table) 01/15/24 12:18 Blood Culture - Preliminary Blood Assessment and Plan Plan: Assessment: 1. Acute kidney injury secondary to ATN secondary to severe sepsis and rhabdomyolysis. Baseline creatinine 0.5-0.6 and >8 this admission. Started on hemodialysis January 05, 2024. No hydronephrosis noted on abdominal ultrasound. Creatinine 4.1 today. Last hemodialysis January 17, 2024 for 1 hour. 2. Rhabdomyolysis secondary to fall/immobility. CK levels improved. 3. Severe sepsis secondary to staph bacteremia. s/p antibiotics. 4. Metabolic acidosis secondary to acute kidney injury. Improved from admission. 5. Hyponatremia secondary to acute kidney injury. Improved. 6. Hypocalcemia secondary to acute kidney injury and rhabdomyolysis. Improved. 7. Benign hypertension. 8. Hyperphosphatemia secondary to acute kidney injury. Phosphorus level 5.3 dated January 17, 2024. On Renvela with meals. 9. Hypomagnesemia from poor intake. Replaced. Better. 10. Anemia. Plan: Hold off on hemodialysis. Femoral catheter removed. Will need permacath further need for hemodialysis. Maintain gentle IV hydration. Change fluids to half-normal saline. Strict I's and O's. Monitor for renal recovery. Avoid nephrotoxins. Increase dose of Coreg. Check iron studies.
[2024-01-18] MEDS: SODIUM CHLORIDE 0.45% 1,000 ML IV SCH (11:52)
--- NOTE | 2024-01-18 12:37 | P.PN ---
Subjective Progress Note Date: 01/18/24 Principal diagnosis: Reason for follow-up is fever and a positive blood culture Patient is a 38-year-old male with a past medical history of GERD for hypertension hepatitis C pancreatitis reflux history of alcoholism patient was brought into the ER by EMS after apparently the patient was noticed to be facedown in the snow when the EMS got him up he was unable to speak patient was hypothermic and subsequently brought into the ER for further evaluation, on arrival to the ER the patient did have a fever did have elevated white count chest x-ray UA was negative abdominal soft LP was done last night which came back negative as well. On today's evaluation that is 01/18/2024, Patient is afebrile patient is currently on room air and denies having any shortness of breath, the patient denies any chest pain or cough, the patient denies any nausea vomiting did not have any abdominal pain and no diarrhea. Patient did have a creatinine of 4.1 no CBC was done today Objective - Vital Signs Vital signs: Vital Signs Temp 99.3 F 01/18/24 07:35 Pulse 80 01/18/24 07:35 Resp 16 01/18/24 07:35 BP 169/102 01/18/24 07:35 Pulse Ox 97 01/18/24 08:49 FiO2 Intake & Output 01/17/24 01/18/24 01/18/24 18:59 06:59 18:59 Intake Total 1150 1760 118 Output Total 2199 1100 900 Balance -1049 660 -782 Weight 93.5 kg Intake: IV 320 Sodium Chloride 0.9% 1, 320 000 ml @ 40 mls/hr IV . Q24H [facility] Rx#:[id number] Intake, IV Titration 200 Amount Magnesium Sulfate-D5w Pmx 200 1 gm In Dextrose/Water 1 100ml.bag @ 100 mls/hr IVPB Q1H [facility] Rx#: [id number] Oral 230 1760 118 Hemodialysis 400 Output: Urine 1900 1100 900 Hemodialysis 299 Other: Voiding Method Toilet Urinal - Exam GENERAL DESCRIPTION: Middle-age male lying in bed in no distress RESPIRATORY SYSTEM: Unlabored breathing , decreased breath sounds at bases HEART: S1 S2 regular rate and rhythm , ABDOMEN: Soft , no tenderness EXTREMITIES: No edema feet - Labs CBC & Chem 7: 01/17/24 05:47 01/18/24 05:30 Labs: Abnormal Lab Results - Last 24 Hours (Table) 01/18/24 Range/Units 05:30 Anion Gap 13.30 H (4.00-12.00) mmol/L Creatinine 4.1 H (0.6-1.5) mg/dL Est GFR (CKD-EPI) 18 L (>=60) BUN/Creatinine Ratio 5.83 L (12.00-20.00) Ratio Microbiology - Last 24 Hours (Table) 01/15/24 12:18 Blood Culture - Preliminary Blood Assessment and Plan (1) Fever with leukocytosis and leukocyte count greater than or equal to 20,000 Current Visit: Yes Status: Acute Code(s): D72.829 - ELEVATED WHITE BLOOD CELL COUNT, UNSPECIFIED SNOMED Code(s): 509448546 (2) Positive blood culture Current Visit: No Status: Acute Code(s): R78.81 - BACTEREMIA SNOMED Code(s): 241393865 Plan: 1patient presented hospital with episode of unresponsiveness by the EMS patient did have features of sepsis running a fever did have elevated white count, initial workup including a chest x-ray and UA has been negative the patient abdominal was soft on clinical examination and there was no evidence of any cellulitis with a question of possible [employer] infection however the patient did have LP completed last night by ER physician and is negative 2-patient with a positive blood culture with coagulase-negative staph with concern for possible vs contamination repeat blood culture negative, daptomycin was discontinued as of 01/11/2024 3-patient completed his course of IV Rocephin 4-patient did have resolution of his leukocytosis and the patient remains to be afebrile will monitor closely off antibiotic therapy Dictation was produced using [employer] dictation software. please excuse any grammatical, word or spelling errors. Time with Patient: Less than 30
--- NOTE | 2024-01-18 13:59 | P.PN ---
Subjective Progress Note Date: 01/18/24 patient is a 38-year-old gentleman past medical significant for alcohol abuse, liver disease who presented to the ER for altered mental status. Patient has a history of alcohol abuse and has multiple admissions to this hospital for alcohol detox. Patient was brought in the ED by EMS after being found lying facedown in snow. There was no obvious sign of any trauma. Patient was unable to respond to any questions. EMS brought him immediately to the ER Initial lab work done in the ER showed WBC 22, hemoglobin 16.4, platelet count 274, sodium 152, potassium 5.1, BUN 38, creatinine 3.47, glucose 105, bilirubin 0.7, AST 1723, ALT 399, troponin 2.39 EKG done in the ER showed heart rate of 125, no ST segment elevation or depression seen, no T-wave inversions seen. Chest x-ray done in the ER showed no acute cardiopulmonary process CT head done showed no acute intracranial process CT cervical spine negative for any acute fracture or dislocation Patient admitted to internal medicine service. On my interview with patient, patient was much more responsive, kept on asking about getting soda and water. Stated that he has been laying on the ground for more than 15 hours. Patient is currently running a fever. Denies any chest pain or shortness of breath. Complaining of generalized body aches 01/05. Patient seen and examined. Blood work done this morning showed WBC 10.5, hemoglobin 9.8, platelet count 137, sodium 132, potassium 3.8, BUN 60, creatinine 4.02, calcium 6, CK greater than 795019. 2D echo done showed LVEF of 50 to 55%, no mitral regurg, trace tricuspid regurg 01/06. Patient seen and examined. Currently in restraints. Currently getting dialysis. Complaining of pain in his tongue, apparently bit his tongue during the fall. 01/07. Patient seen and examined. Continues to be in ICU. Currently on Precedex and IV fluids. Patient currently off restraints, is alert to self. 01/08. Patient seen and examined.Blood work done this morning showed WBC 8.7, hemoglobin 9.3, sodium 137, potassium 4.7, BUN 66, creatinine 6.25, AST is 1516, ALT is 546, currently on 2 L of oxygen. Patient is alert, answering questions, currently on Precedex drip. 01/09/2024 Patient is in MICU. Currently lying in the bed. Awake and alert but lethargic and drowsy. Currently on room air. Tolerating oral diet. Laboratory data showed WBC 7.4 hemoglobin 7.8 and platelets 124, sodium 1:30 potassium 3.6 chloride 103 bicarb is 22 BUN 59 and creatinine 5.67 01/10/2024 Patient is in the MICU. Awake alert and oriented. Seems to be more awake today. On room air. No complaints of chest pain or shortness breath. Patient does have good oral input. No fever no chills. Laboratory data showed WBC 6.7 hemoglobin 8.0 and platelets 136, sodium 1:30 potassium 3.3 chloride 103 bicarb is 26 BUN 40 and creatinine trending down to 4.63 today. Calcium 7.1 and pro calcitonin was 1.46. Patient is on antibiotics ceftriaxone. ID, nephrology and pulmonary is on board. 01/11/2024 Patient is resting in the bed. On room air. Able to ambulate in the room. Patient is being transferred to ICU. Urine output has been improving. Last hemodialysis on 01/09/2024. Patient has been afebrile. Repeat blood cultures negative. Laboratory data showed no illicit 5.9 hemoglobin 9.2 and platelets 154 sodium 133 potassium 2.3 and chloride 103 and bicarb 23 BUN 53 and creatinine 6.39. Patient is on normal saline at 40 mL per hour. On antibiotics ceftriaxone. 01/12/2024 Patient is currently in the telemetry unit. Patient is lying in the bed. Awake alert and orient x 3. No complaints of chest pain. Denies any worsening shortness of breath. No cough or sputum function. Patient is being cannula antibiotics ceftriaxone. Currently on IV hydration with normal saline at 40 cc/h. Patient is tolerating dysphagia level 3 diet. Laboratory pressure WBC 7.0 hemoglobin 7.9 and platelets 211 Sodium 130 potassium 4.2 chloride 104 bicarb is 19 BUN 16 creatinine went up to 7.41 again today. 01/13. Patient seen and examined. Patient has swelling of upper extremities, states he is making urine. Patient is calm. Alert and oriented. 01/14. Patient seen and examined. Patient was sitting in the chair, stated he took a shower this morning feels much better compared to yesterday. Denies any fever or chills. Vital signs stable 01/15. Patient seen and examined. Lab work done in the morning showed WBC 12.36, hemoglobin 7, sodium is 140, potassium is 5.1, BUN is 50, creatinine 7. Vital signs are temperature 98.7, heart rate of 77, respiratory 18, blood pressure 167/101 01/16. Patient seen and examined. Complaining of diarrhea. Tolerating diet 01/17/2024 Patient is seen in follow-up today with nephrology following closely. Patient received about 1 hour of ultrafiltration today and dialysis catheter has been malfunctioning recommending to remove this catheter and monitor over the next few days with follow-up labs. Will follow-up with nephrology to discuss further with discharge planning if patient will require permanent catheter placement and continued outpatient dialysis. Patient reporting some abdominal pain with nausea and will add Zofran and continue with as needed medications. Patient has completed ceftriaxone and infectious diseases following closely. Social work following as well and working with guardian on discharge planning. Patient does have CIWA protocol although not actively withdrawing. Recommend as needed Ativan orally. Encouraged increase activity as tolerated. 01/18/2024 Patient is seen and evaluated in follow-up today. Patient had femoral catheter removed by vascular surgery yesterday and follow-up labs show a creatinine of 4.1 with a BUN of 23.9, sodium is 144 and potassium is 3.7. Magnesium was low yesterday and replaced and follow-up is 1.8 today. Patient also continues to be followed by infectious disease maintained off antibiotics being closely monitored. Patient to continue with increased activity as tolerated and encour aged oral intake renal diet. Patient will continue on half-normal saline and follow-up with repeat labs. REVIEW OF SYSTEMS: CONSTITUTIONAL: No fever, no malaise,. CARDIOVASCULAR: No chest pain, no palpitations, no syncope. PULMONARY: No shortness of breath, no cough, GASTROINTESTINAL: Reports occasional nausea although none today, no vomiting, reports tolerating diet NEUROLOGICAL: No headaches, no weakness PHYSICAL EXAMINATION: GENERAL: The patient is alert and oriented x3, not in any acute distress. Well developed, well nourished. Appears older than stated age, obese HEENT: Pupils are round and equally reacting to light. EOMI. No scleral icterus. No conjunctival pallor. Normocephalic, atraumatic. No pharyngeal erythema. No thyromegaly. CARDIOVASCULAR: S1 and S2 present. No murmurs, rubs, or gallops. PULMONARY: Chest is clear to auscultation, no wheezing or crackles. ABDOMEN: Soft, nontender, nondistended, normoactive bowel sounds. No palpable organomegaly. MUSCULOSKELETAL: 1Plus edema of lower extremities bilaterally EXTREMITIES: No cyanosis, clubbing,. NEUROLOGICAL: Gross neurological examination did not reveal any focal deficits. SKIN: No rashes. Assessment: Acute metabolic encephalopathy. Improving. Acute kidney injury secondary to ATN due to infection and rhabdomyolysis. requiring hemodialysis. Started on 01/05/2024. Temporary cath removed on 01/17/2024 Gram-positive Bacteremia. Coagulase-negative staph. Repeat blood cultures negative. Sepsis Acute Rhabdomyolysis secondary to fall Hypothermia, resolved Hypernatremia. Resolved. Hypocalcemia secondary to acute kidney injury and rhabdomyolysis. Leukocytosis, resolved Elevated troponin level. Ratio of CPK and troponin suggest skeletal muscle injury Acute transaminitis Fall History of alcohol abuse Acute alcohol withdrawal symptoms History of depression Obesity with a BMI of 33.5 GI prophylaxis DVT prophylaxis Full code Plan: Patient maintained on gentle IV hydration with nephrology following closely. Temporary catheter removed today and holding off on dialysis and will follow-up on repeat labs and monitor closely if patient will require outpatient dialysis. Creatinine slightly improved at 4.1 today will follow-up with repeat labs and patient is continued on half-normal saline per nephrology recommendations recommending labs in the a.m. Case management/social work following working on discharge planning and awaiting further nephrology instruction if patient will require hemodialysis in the outpatient setting Patient was continued on CIWA protocol although not actively withdrawing and will continue with as needed oral Ativan Patient was continued on antibiotics with infectious disease following and cultures have remained negative and being monitored off antibiotic therapy Will follow-up with repeat labs and monitor kidney functions along with electrolytes Encouraged to increase activity as tolerated Due to multiple complex medical issues, prognosis is guarded The impression and plan of care has been dictated by Marlena Roque, Nurse Practitioner as directed. Dr. Merle MD I have performed a history and examination and MDM of this patient, discussed the same with the dictator, and agree with the dictator's assessment and plan as written ,documented as a scribe. Based on total visit time, I have performed more than 50% of the visit. Objective - Vital Signs Vital signs: Vital Signs Temp 99.3 F 01/18/24 07:35 Pulse 80 01/18/24 07:35 Resp 16 01/18/24 07:35 BP 169/102 01/18/24 07:35 Pulse Ox 97 01/18/24 08:49 FiO2 Intake & Output 01/17/24 01/18/24 01/18/24 18:59 06:59 18:59 Intake Total 1150 1760 118 Output Total 2199 1100 Balance -1049 660 118 Weight 93.5 kg Intake: IV 320 Sodium Chloride 0.9% 1, 320 000 ml @ 40 mls/hr IV . Q24H [facility] Rx#:[id number] Intake, IV Titration 200 Amount Magnesium Sulfate-D5w Pmx 200 1 gm In Dextrose/Water 1 100ml.bag @ 100 mls/hr IVPB Q1H [facility]AT[facility] Rx#: [id number] Oral 230 1760 118 Hemodialysis 400 Output: Urine 1900 1100 Hemodialysis 299 Other: Voiding Method Toilet Urinal - Labs CBC & Chem 7: 01/17/24 05:47 01/18/24 05:30 Labs: Microbiology - Last 24 Hours (Table) 01/15/24 12:18 Blood Culture - Preliminary Blood
--- NOTE | 2024-01-18 16:28 | P.PN ---
Subjective Progress Note Date: 01/18/24 This is a 38-year-old white male with history of multiple medical problems including alcoholism, hepatitis C, hypertension, GERD, patient was brought into the ER yesterday after he was noted to be face down in the snow, upon EMS arrival, the patient was hypothermic, and altered mental status. In the ER, the patient was noted to have temp of 102.6, he was tachycardic, and was not hypotensive or hypoxic. Workup in the ER included CBC which showed leukocytosis. His bicarb was noted to be low, patient was noted to have anion gap metabolic acidosis, he was also noted to have renal failure with a BUN of 51 creatinine 3.45. His CPK was significantly elevated almost 92,000, troponin elevated at 1.6, and liver enzymes were also elevated including AST and ALT. There was evidence of blood in the urine. No drug screen was done at the time of arrival, but his alcohol level was less than 10. His RSV PCR was positive. Drug screen in the ICU was positive for barbiturates, amphetamine, methamphetami ne, and benzodiazepines. Patient was seen by many consultants including infectious disease, patient was started empirically on antibiotics in the form of Rocephin and vancomycin, and infectious disease recommended a lumbar puncture on this patient. Initial chemistry on the spinal fluid seems to be unremarkable. Final report is pending. His blood cultures today are positive for gram-positive cocci in clusters. Patient was seen by nephrology today, and recommending starting the patient on hemodialysis. Patient was felt to have acute kidney injury secondary to ATN, and severe sepsis and rhabdomyolysis, oliguric, unresponsive to diuretics, and there was no hydronephrosis on the abdominal ultrasound. At any rate patient is scheduled to have a dialysis catheter placement today. Last night the patient was on the regular medical floor, I was made aware of this patient because his CIWA score was 20,, patient was already on a bicarb drip, and I have recommended transferring the patient out of the floor to the ICU saw this patient this morning, reviewed all his labs and workup, remains on bicarb drip, empirically on antibiotics for his presumptive severe sepsis and bacteremia as noted on blood cultures today, patient continues to have significantly elevated CPK, continues to have w orsening renal failure. Blood pressure was high and I recommended Cleviprex at 2 mg/h. Also recommended a drug screen to be done. Patient did not require Precedex, he is agitation is well-controlled with Ativan. According to the patient his last alcohol drink was 2 days ago. Patient is not a great historian, seems to mumble but does not give adequate history. And he is by all means encephalopathic. But able to protect his airways, and able to cough and clear secretions. Hence did not feel the need to intubate this patient at this point. Procalcitonin level this morning is 45.9 Patient was reevaluated today on 01/06/2024, his blood cultures are actually now coagulase-negative staph, most likely blood cultures are contaminated. Patient is still restless and agitated easily, remains in the ICU, he will be undergoing dialysis today, he had dialysis yesterday. Complaining of hurting all over, patient remains a bit confused, and lethargic. His creatinine is high at 4.3, hemoglobin is down from 16.3 on admission now 10.3, platelets are coming down, hence I am stopping his heparin. CPK remains high at 158,000, patient is still receiving fluids at 200 cc/h, and he will have more dialysis today. Patient is extremely oliguric. Liver enzymes are also elevated with a AST of 2498, and ALT 573, improving compared to yesterday Patient was reevaluated today on 01/07/2024, remains in the ICU, marginal at best. On 3 L nasal cannula, remains a bit encephalopathic with a slight im provement in his overall mental status patient knows that he is at [facility], he realized the year is 2023. Patient continues to have marginal urine output, he is oliguric, intermittently on hemodialysis, patient remains on daptomycin and ceftriaxone, blood cultures were contaminated with staph/coagulase negative. Spinal fluid cultures have been negative CPK is coming down today, he is down to 89,000 from 159,000 yesterday. Renal functioning is about the same with a creatinine 4.60 and BUN of 49, Liver enzymes are steadily improving. And ammonia level is less than 90. His IV fluid remains at 200 cc/h patient is receiving MVI. Progress note dated January 08, 2024. 38-year-old male who was admitted to the hospital on 04 January. The patient came to the intensive care unit on the . Currently, the patient is seen today in room 255. The patient is on room air. He is getting saline at 130 cc an hour. He continues on dexmedetomidine at 0.4 mcg/kg/h. The patient has had hemodialysis, twice, but is planning to have hemodialysis again today. Will add some Haldol, Seroquel, and clonidine patch to his regimen, to get him off the dexmedetomidine. Current labs include white count 8.7, hemoglobin 9.3, hematocrit 27.8, and platelet count 108,000. Sodium 131, potassium 4.7, chlorides 105, CO2 14, anion gap 12, BUN 66, creatinine 6.25. AST is 1516. ALT is 546. CK is down from 89,000, to 73,807. Blood cultures are positive for coag negative staph. No chest x-ray to report on. Progress note dated January 09, 2024. 38-year-old male who was admitted to the hospital on January 04. The patient came to the intensive care unit, on the . Currently, the patient is seen today in room 255. The patient continues on room air. The patient is getting saline at 75 cc an hour. He will have another hemodialysis session today, which is #4. Yesterday, he had hemodialysis, and 2 L was removed. He is currently off the dexmedetomidine. White count 7.4, hemoglobin 7.8, hematocrit 22.8, platelet count 124,000. Sodium 130, potassium 3.6, chlorides 103, CO2 22, BUN 59, creatinine 5.67. His calcium is 7.0. Blood cultures were positive for coag negative staph. Progress note dated January 10, 2024. 38-year-old male again seen today in room 255, the intensive care unit. Currently, the patient is on room air. He is getting saline at 40 cc an hour. According to his nurse, he had an uneventful night. In our opinion, the patient is stable to be transferred out of the intensive care unit. Current labs include a white count of 6.7, hemoglobin 8, hematocrit 23.9, and a platelet count of 136,000. Sodium 130, potassium 3.3, chlorides 103, CO2 26, BUN 40, creatinine 4.63. His CK is down to 36,783. Procalcitonin level is 1.46. Progress note dated January 11, 2024. 38-year-old male seen again in room 255. The patient is currently doing better. The patient is on room air. He is getting saline at 40 cc an hour. According to his nurse, the patient had an uneventful night. The patient is calm, and not agitated. No new labs today. Chest x-ray suggest some bilateral subsegmental atelectasis. The patient is seen today January 12, 2024 in follow-up on the regular medical floor. He is currently resting comfortably in bed. Awake and alert in no acute distress. Maintaining O2 saturation in the 90s on room air. No IV fluids. He has been calm and cooperative. Follow-up blood cultures revealed no growth. Cerebrospinal fluid cultures revealed no growth. No new labs today. He remains on ceftriaxone. NicoDerm patch in place. Heparin for DVT prophylaxis. He remains on the CIWA protocol. He did require Ativan early this morning. The patient is seen today January 13, 2024 in follow-up on the regular medical floor. He is awake and alert in no acute distress. Resting comfortably in bed. Denies any worsening shortness of breath, cough or congestion. He is maintaining O2 saturations in the 90s on room air. Laying flat in bed. Sodium 132. Potassium 4.5. Bicarb 21. BUN 65. Creatinine 8.11. Glucose 72. AST 104. ALT 175. Creatinine kinase 2293. He remains on the CIWA protocol. Remains on Seroquel. NicoDerm patch in place. Continued on antibiotics in the form of ceftriaxone. Plan is for hemodialysis today. His urine output is improving. The patient is seen today January 14, 2024 in follow-up on the regular medical floor. He is laying flat in bed. Awake and alert in no acute distress. No worsening shortness of breath, cough or congestion. He has been calm and cooperative. Follow-up blood cultures revealed no growth. Cerebrospinal fluid cultures revealed no growth. Today's labs are pending. Urine output has been increasing. Nephrology is following and plans to try to hold off dialysis for now. Avoiding nephrotoxic medications. He remains on antibiotics in the form of ceftriaxone. Heparin for DVT prophylaxis. NicoDerm patch in place. Continued on Seroquel. Still requiring occasional Ativan. On today's evaluation of 01/15/2024, the patient is being seen for a follow-up. The patient is recovering from acute alcohol withdrawal syndrome. He did encounter some metabolic encephalopathy and he seems to be more appropriate. The same time, the patient Had coagulase-negative bacteremia on 2 separate blood cultures and repeat blood cultures are essentially negative. The patient is currently on IV Rocephin. He is calm and comfortable and resting comfortably in bed. His pulse ox is 94% on room air oxygen. His white cell close of 12.3 with a hemoglobin of 7 and a platelet count of 287. Sodium is at 140, BUN is at 50 with a creatinine of 7.0 and a potassium level is at 5.1 and a bicarb level is at 19.4. The patient is currently undergoing hemodialysis. He is known to have history of alcoholism, hepatitis C, history of IV drug use, and during this current hospital stay, the patient also tested positive for RSV on 01/04/2024. He is following commands today. Answer questions appropriately. He is being seen by nephrology. He is going to undergo hemodialysis as the creatinine is at 7.0. Will monitor his renal recovery. Amlodipine was also added for tighter blood pressure control. On 01/16/2024, the patient is being seen for a follow-up. Doing well. No specific complaints. Resting comfortably in bed. Unable to complete a full dialysis session yesterday as the patient's dialysis catheter was malfunctioning and another catheter to be inserted at the later stage. Nephrology on the case and they are addressing the patient's need for dialysis. Meanwhile, the patient's urine output essentially low and the patient's BUN is at 50 with a creatinine of 7.0. Sodium is at 140. WBC count of 12.3 with a hemoglobin of 7. The patient has been voiding and the plan is for vascular surgery to exchange dialysis catheter to be followed up with dialysis session tomorrow. The patient is currently on room air oxygen. The patient is afebrile. He reports generalized weakness and fatigue. He is also complaining of episodic diarrhea. Tolerating his diet. Not taking any form of antibiotics at this point in time. On today's evaluation of 01/17/2024, the patient is being seen for a follow-up. The patient is to undergo hemodialysis today. Following that, the dialysis catheter is to be removed and possibly to be replaced at a later stage depending on his progress. His white cell count is at 9.5 with a hemoglobin of 7.4. BUN is at 34 with a creatinine of 4.8 and a sodium levels at 142. Procalcitonin level is at 0.18. Nephrology is on the case. Note that the patient has a normal baseline creatinine. He did undergo a rhabdomyolysis secondary to a fall and immobility and his CPK improved. He was also treated for staphylococcal bacteremia and the patient completed IV antibiotics. Repeat blood cultures have been negative and the most recent pending blood cultures from 01/15/2028 and has shown no interval growth. His vitals are stable. He is on room air oxygen with a pulse ox of 97%. Blood pressure is slightly elevated and the patient is currently on clonidine patch, amlodipine 5 mg p.o. twice a day and he is also on Coreg 3.125 mg twice a day. On today's evaluation of 01/18/2024, the patient is being seen for a follow-up. The patient is doing well. No specific complaints. The patient is able to void. Creatinine is improving. Noted the patient underwent a session of hemodialysis yesterday. The patient had dialysis for a total of 1 hour. Following that, the catheter was removed and the catheter itself was malfunctioning. He will be held off dialysis for now and he is going to be monitored. He is resting comfortably in bed. No active complaints otherwise for now. He is on room air oxygen. BUN is at 23 with a creatinine of 4.1 and a sodium level is at 144 and a potassium level is at 3.7. No focal neurological deficits. No chest pain. No shortness of breath. No altered mentation. Current blood pressure is 150/77 and the patient is currently maintained on a combination of Coreg and hydralazine for blood pressure control. The patient is also on Norvasc 5 mg p.o. twice a day. Objective - Vital Signs Vital signs: Vital Signs Temp 99.3 F 01/18/24 07:35 Pulse 80 01/18/24 07:35 Resp 16 01/18/24 07:35 BP 169/102 01/18/24 07:35 Pulse Ox 97 01/18/24 08:49 FiO2 Intake & Output 01/17/24 01/18/24 01/18/24 18:59 06:59 18:59 Intake Total 1150 1760 118 Output Total 2199 1100 Balance -1049 660 118 Weight 93.5 kg Intake: IV 320 Sodium Chloride 0.9% 1, 320 000 ml @ 40 mls/hr IV . Q24H [facility] Rx#:[id number] Intake, IV Titration 200 Amount Magnesium Sulfate-D5w Pmx 200 1 gm In Dextrose/Water 1 100ml.bag @ 100 mls/hr IVPB Q1H [facility] Rx#: [id number] Oral 230 1760 118 Hemodialysis 400 Output: Urine 1900 1100 Hemodialysis 299 Other: Voiding Method Toilet Urinal - Exam GENERAL EXAM: Alert, calm, cooperative 38-year-old male, on room air, in no apparent distress. HEAD: Normocephalic. EYES: Normal reaction of pupils, equal size. NOSE: Clear with pink turbinates. THROAT: No erythema or exudates. NECK: No masses, no JVD. CHEST: No chest wall deformity. LUNGS: Equal air entry with no crackles, wheeze, rhonchi or dullness. CVS: S1 and S2 normal with no audible murmur, regular rhythm. ABDOMEN: No hepatosplenomegaly, normal bowel sounds, no guarding or rigidity. SPINE: No scoliosis or deformity SKIN: No rashes CENTRAL NERVOUS SYSTEM: No focal deficits, tone is normal in all 4 extremities. EXTREMITIES: There is no peripheral edema. No clubbing, no cyanosis. Peripheral pulses are intact. - Labs CBC & Chem 7: 01/17/24 05:47 01/18/24 05:30 Labs: Abnormal Lab Results - Last 24 Hours (Table) 01/18/24 Range/Units 05:30 Anion Gap 13.30 H (4.00-12.00) mmol/L Creatinine 4.1 H (0.6-1.5) mg/dL Est GFR (CKD-EPI) 18 L (>=60) BUN/Creatinine Ratio 5.83 L (12.00-20.00) Ratio Microbiology - Last 24 Hours (Table) 01/15/24 12:18 Blood Culture - Preliminary Blood Assessment and Plan Plan: Acute alcohol withdrawal syndrome, currently inactive and stable without any ongoing signs of alcohol withdrawal. Mental status is stable for now Acute metabolic encephalopathy, improved Diarrhea, check stool for C. difficile colitis Possible bacteremia secondary to coagulase-negative staphylococci, likely contaminant. This is a coagulase-negative staph. The patient is currently on no antibiotics. Hypothermia, resolved Acute transaminitis, AST and ALT are mildly elevated Acute RSV infection, no signs of any respiratory compromise Acute kidney injury secondary to rhabdomyolysis requiring hemodialysis, last hemodialysis session was yesterday and the patient was written for a total of 1 hour. Dialysis catheter has been removed History of alcoholism History of hepatitis C History of gastroesophageal reflux disease History of IV drug abuse History of pancreatitis History of bipolar disorder and depression Plan: Monitor urine output Monitor creatinine May likely need permacath. For now, the patient is voiding and the patient will be monitored Currently stable and on room air Remains on the CIWA protocol Increase his activity as tolerated Continue Coreg 6. 25 mg twice a day Continue hydralazine 50 mg p.o. 3 times daily Amlodipine 5 mg p.o. twice daily for tighter blood pressure control Monitor blood pressure Seroquel 100 mg twice a day IV fluids with normal saline at rate of 40 cc an hour We will continue to follow
[2024-01-18 16:35] LABS: % Iron Saturation 10.08 (15.00-50.00)
[2024-01-18] MEDS: carvediloL 6.25 MG TAB PO SCH (17:06)
--- NOTE | 2024-01-19 10:35 | P.PN ---
Subjective Patient is seen in follow-up for acute kidney injury. Last hemodialysis January 17, 2024 for 1 hour. Creatinine 4.1 yesterday. Morning labs pending. Admits to good urine output. No active complaints. Vital signs are stable. General: No acute distress. HEENT: Head exam is unremarkable. LUNGS: No audible rhonchi or wheezes. HEART: Rate and Rhythm are regular. ABDOMEN: Nontender. EXTREMITITES: No edema. Objective - Vital Signs Vital signs: Vital Signs Temp 98.2 F 01/19/24 07:33 Pulse 83 01/19/24 07:33 Resp 16 01/19/24 07:33 BP 147/83 01/19/24 07:33 Pulse Ox 95 01/19/24 07:33 FiO2 Intake & Output 01/18/24 01/19/24 01/19/24 18:59 06:59 18:59 Intake Total 3594 Output Total 3100 1800 Balance 494 -1800 Weight 89 kg Intake: IV 120 Sodium Chloride 0.9% 1, 120 000 ml @ 40 mls/hr IV . Q24H [facility] Rx#:[id number] Intake, IV Titration 500 Amount Sodium Chloride 0.45% 1, 500 000 ml @ 50 mls/hr IV . Q20H [facility] Rx#:[id number] Oral [id number] Output: Urine 3100 1800 Other: Voiding Method Toilet Urinal # Voids 3 - Labs CBC & Chem 7: 01/17/24 05:47 01/18/24 05:30 Labs: Abnormal Lab Results - Last 24 Hours (Table) 01/18/24 Range/Units 05:30 Iron 36 L (65-175) UG/DL % Saturation 10.08 L (15.00-50.00) Microbiology - Last 24 Hours (Table) 01/15/24 12:18 Blood Culture - Preliminary Blood Assessment and Plan Plan: Assessment: 1. Acute kidney injury secondary to ATN secondary to severe sepsis and rhabdomyolysis. Baseline creatinine 0.5-0.6 and >8 this admission. Started on hemodialysis January 05, 2024. No hydronephrosis noted on abdominal ultrasound. Creatinine 4.1 yesterday. Last hemodialysis January 17, 2024 for 1 hour. 2. Rhabdomyolysis secondary to fall/immobility. CK levels improved. 3. Severe sepsis secondary to staph bacteremia. s/p antibiotics. 4. Metabolic acidosis secondary to acute kidney injury. Improved from admissi on. 5. Hyponatremia secondary to acute kidney injury. Improved. 6. Hypocalcemia secondary to acute kidney injury and rhabdomyolysis. Improved. 7. Benign hypertension. 8. Hyperphosphatemia secondary to acute kidney injury. Phosphorus level 5.3 dated January 17, 2024. On Renvela with meals. 9. Hypomagnesemia from poor intake. Replaced. Better. 10. Anemia. Iron deficiency noted. Plan: Hold off on hemodialysis. Femoral catheter removed. Will need permacath if there is further need for hemodialysis. Maintain gentle IV hydration. Strict I's and O's. Monitor for renal recovery. Avoid nephrotoxins. Add IV iron. Follow-up morning labs.
[2024-01-19] MEDS: SODIUM FERRIC GLUCONAT-SUCROSE 125 MG in SODIUM CHLORIDE 0.9% 100 ML IVPB SCH (11:16)
[2024-01-19 11:42] LABS: BUN/Creat Ratio 6.16 Ratio (12.00-20.00); Blood Urea Nitrogen 22.8 mg/dL (9.0-27.0); Calcium 8.5 mg/dL (8.7-10.3); Carbon Dioxide 22.8 mmol/L (21.6-31.8); Chloride 106 mmol/L (96-109); Glucose 76 mg/dL (70-110); Magnesium 1.5 mg/dL (1.5-2.4); Potassium 3.8 mmol/L (3.5-5.5); Sodium 142 mmol/L (135-145)
--- NOTE | 2024-01-19 15:50 | P.PN ---
Subjective Progress Note Date: 01/19/24 Principal diagnosis: Reason for follow-up is fever and a positive blood culture Patient is a 38-year-old male with a past medical history of GERD for hypertension hepatitis C pancreatitis reflux history of alcoholism patient was brought into the ER by EMS after apparently the patient was noticed to be facedown in the snow when the EMS got him up he was unable to speak patient was hypothermic and subsequently brought into the ER for further evaluation, on arrival to the ER the patient did have a fever did have elevated white count chest x-ray UA was negative abdominal soft LP was done last night which came back negative as well. On today's evaluation that is 01/19/2024,the patient denies any fever or any chills, patient is breathing comfortably on room air, the patient denies chest pain shortness of breath and no significant cough, patient denies abdominal p ain, no nausea vomiting or diarrhea. Did have a creatinine of 3.7 blood culture repeat so far negative Objective - Vital Signs Vital signs: Vital Signs Temp 98.8 F 01/19/24 13:50 Pulse 81 01/19/24 13:50 Resp 16 01/19/24 13:50 BP 123/69 01/19/24 13:50 Pulse Ox 93 L 01/19/24 13:50 FiO2 Intake & Output 01/18/24 01/19/24 01/19/24 18:59 06:59 18:59 Intake Total 3594 618 Output Total 3100 1800 Balance 494 -1800 618 Weight 89 kg Intake: IV 120 Sodium Chloride 0.9% 1, 120 000 ml @ 40 mls/hr IV . Q24H [facility] Rx#:[id number] Intake, IV Titration 500 500 Amount Sodium Chloride 0.45% 1, 500 400 000 ml @ 50 mls/hr IV . Q20H [facility] Rx#:[id number] Sodium Ferric Gluconat- 100 Sucrose 125 mg In Sodium Chloride 0.9% 100 ml @ 100 mls/hr IVPB DAILY [facility] Rx#:[id number] Oral [id number] 118 Output: Urine 3100 1800 Other: Voiding Method Toilet Urinal # Voids 3 - Exam GENERAL DESCRIPTION: Middle-age male lying in bed in no distress RESPIRATORY SYSTEM: Unlabored breathing , decreased breath sounds at bases HEART: S1 S2 regular rate and rhythm , ABDOMEN: Soft , no tenderness EXTREMITIES: No edema feet - Labs CBC & Chem 7: 01/17/24 05:47 01/19/24 06:21 Labs: Abnormal Lab Results - Last 24 Hours (Table) 01/18/24 01/19/24 Range/Units 05:30 06:21 Anion Gap 13.20 H (4.00-12.00) mmol/L Creatinine 3.7 H (0.6-1.5) mg/dL Est GFR (CKD-EPI) 21 L (>=60) BUN/Creatinine Ratio 6.16 L (12.00-20.00) Ratio Calcium 8.5 L (8.7-10.3) mg/dL Iron 36 L (65-175) UG/DL % Saturation 10.08 L (15.00-50.00) Microbiology - Last 24 Hours (Table) 01/15/24 12:18 Blood Culture - Preliminary Blood Assessment and Plan (1) Fever with leukocytosis and leukocyte count greater than or equal to 20,000 Current Visit: Yes Status: Acute Code(s): D72.829 - ELEVATED WHITE BLOOD CELL COUNT, UNSPECIFIED SNOMED Code(s): 594407092 (2) Positive blood culture Current Visit: No Status: Acute Code(s): R78.81 - BACTEREMIA SNOMED Code(s): 500115705 Plan: 1patient presented hospital with episode of unresponsiveness by the EMS patient did have features of sepsis running a fever did have elevated white count, in itial workup including a chest x-ray and UA has been negative the patient abdominal was soft on clinical examination and there was no evidence of any cellulitis with a question of possible HOSPICE COORDINATOR infection however the patient did have LP completed last night by ER physician and is negative 2-patient with a positive blood culture with coagulase-negative staph with concern for possible pathogen vs contamination repeat blood culture negative, daptomycin was discontinued as of 01/11/2024 3-patient completed his course of IV Rocephin 4-patient did have resolution of his leukocytosis and the patient remains to be afebrile seem to do well off antibiotic therapy and will be monitored closely off antibiotic Dictation was produced using [employer] dictation software. please excuse any grammatical, word or spelling errors. Time with Patient: Less than 30
--- NOTE | 2024-01-19 16:16 | P.PN ---
Subjective Progress Note Date: 01/19/24 This is a 38-year-old white male with history of multiple medical problems including alcoholism, hepatitis C, hypertension, GERD, patient was brought into the ER yesterday after he was noted to be face down in the snow, upon EMS arrival, the patient was hypothermic, and altered mental status. In the ER, the patient was noted to have temp of 102.6, he was tachycardic, and was not hypotensive or hypoxic. Workup in the ER included CBC which showed leukocytosis. His bicarb was noted to be low, patient was noted to have anion gap metabolic acidosis, he was also noted to have renal failure with a BUN of 51 creatinine 3.45. His CPK was significantly elevated almost 92,000, troponin elevated at 1.6, and liver enzymes were also elevated including AST and ALT. There was evidence of blood in the urine. No drug screen was done at the time of arrival, but his alcohol level was less than 10. His RSV PCR was positive. Drug screen in the ICU was positive for barbiturates, amphetamine, methamphetami ne, and benzodiazepines. Patient was seen by many consultants including infectious disease, patient was started empirically on antibiotics in the form of Rocephin and vancomycin, and infectious disease recommended a lumbar puncture on this patient. Initial chemistry on the spinal fluid seems to be unremarkable. Final report is pending. His blood cultures today are positive for gram-positive cocci in clusters. Patient was seen by nephrology today, and recommending starting the patient on hemodialysis. Patient was felt to have acute kidney injury secondary to ATN, and severe sepsis and rhabdomyolysis, oliguric, unresponsive to diuretics, and there was no hydronephrosis on the abdominal ultrasound. At any rate patient is scheduled to have a dialysis catheter placement today. Last night the patient was on the regular medical floor, I was made aware of this patient because his CIWA score was 20,, patient was already on a bicarb drip, and I have recommended transferring the patient out of the floor to the ICU saw this patient this morning, reviewed all his labs and workup, remains on bicarb drip, empirically on antibiotics for his presumptive severe sepsis and bacteremia as noted on blood cultures today, patient continues to have significantly elevated CPK, continues to have w orsening renal failure. Blood pressure was high and I recommended Cleviprex at 2 mg/h. Also recommended a drug screen to be done. Patient did not require Precedex, he is agitation is well-controlled with Ativan. According to the patient his last alcohol drink was 2 days ago. Patient is not a great historian, seems to mumble but does not give adequate history. And he is by all means encephalopathic. But able to protect his airways, and able to cough and clear secretions. Hence did not feel the need to intubate this patient at this point. Procalcitonin level this morning is 45.9 Patient was reevaluated today on 01/06/2024, his blood cultures are actually now coagulase-negative staph, most likely blood cultures are contaminated. Patient is still restless and agitated easily, remains in the ICU, he will be undergoing dialysis today, he had dialysis yesterday. Complaining of hurting all over, patient remains a bit confused, and lethargic. His creatinine is high at 4.3, hemoglobin is down from 16.3 on admission now 10.3, platelets are coming down, hence I am stopping his heparin. CPK remains high at 158,000, patient is still receiving fluids at 200 cc/h, and he will have more dialysis today. Patient is extremely oliguric. Liver enzymes are also elevated with a AST of 2498, and ALT 573, improving compared to yesterday Patient was reevaluated today on 01/07/2024, remains in the ICU, marginal at best. On 3 L nasal cannula, remains a bit encephalopathic with a slight im provement in his overall mental status patient knows that he is at [facility], he realized the year is 2023. Patient continues to have marginal urine output, he is oliguric, intermittently on hemodialysis, patient remains on daptomycin and ceftriaxone, blood cultures were contaminated with staph/coagulase negative. Spinal fluid cultures have been negative CPK is coming down today, he is down to 89,000 from 159,000 yesterday. Renal functioning is about the same with a creatinine 4.60 and BUN of 49, Liver enzymes are steadily improving. And ammonia level is less than 90. His IV fluid remains at 200 cc/h patient is receiving MVI. Progress note dated January 08, 2024. 38-year-old male who was admitted to the hospital on 04 January. The patient came to the intensive care unit on the . Currently, the patient is seen today in room 255. The patient is on room air. He is getting saline at 130 cc an hour. He continues on dexmedetomidine at 0.4 mcg/kg/h. The patient has had hemodialysis, twice, but is planning to have hemodialysis again today. Will add some Haldol, Seroquel, and clonidine patch to his regimen, to get him off the dexmedetomidine. Current labs include white count 8.7, hemoglobin 9.3, hematocrit 27.8, and platelet count 108,000. Sodium 131, potassium 4.7, chlorides 105, CO2 14, anion gap 12, BUN 66, creatinine 6.25. AST is 1516. ALT is 546. CK is down from 89,000, to 73,807. Blood cultures are positive for coag negative staph. No chest x-ray to report on. Progress note dated January 09, 2024. 38-year-old male who was admitted to the hospital on January 04. The patient came to the intensive care unit, on the . Currently, the patient is seen today in room 255. The patient continues on room air. The patient is getting saline at 75 cc an hour. He will have another hemodialysis session today, which is #4. Yesterday, he had hemodialysis, and 2 L was removed. He is currently off the dexmedetomidine. White count 7.4, hemoglobin 7.8, hematocrit 22.8, platelet count 124,000. Sodium 130, potassium 3.6, chlorides 103, CO2 22, BUN 59, creatinine 5.67. His calcium is 7.0. Blood cultures were positive for coag negative staph. Progress note dated January 10, 2024. 38-year-old male again seen today in room 255, the intensive care unit. Currently, the patient is on room air. He is getting saline at 40 cc an hour. According to his nurse, he had an uneventful night. In our opinion, the patient is stable to be transferred out of the intensive care unit. Current labs include a white count of 6.7, hemoglobin 8, hematocrit 23.9, and a platelet count of 136,000. Sodium 130, potassium 3.3, chlorides 103, CO2 26, BUN 40, creatinine 4.63. His CK is down to 36,783. Procalcitonin level is 1.46. Progress note dated January 11, 2024. 38-year-old male seen again in room 255. The patient is currently doing better. The patient is on room air. He is getting saline at 40 cc an hour. According to his nurse, the patient had an uneventful night. The patient is calm, and not agitated. No new labs today. Chest x-ray suggest some bilateral subsegmental atelectasis. The patient is seen today January 12, 2024 in follow-up on the regular medical floor. He is currently resting comfortably in bed. Awake and alert in no acute distress. Maintaining O2 saturation in the 90s on room air. No IV fluids. He has been calm and cooperative. Follow-up blood cultures revealed no growth. Cerebrospinal fluid cultures revealed no growth. No new labs today. He remains on ceftriaxone. NicoDerm patch in place. Heparin for DVT prophylaxis. He remains on the CIWA protocol. He did require Ativan early this morning. The patient is seen today January 13, 2024 in follow-up on the regular medical floor. He is awake and alert in no acute distress. Resting comfortably in bed. Denies any worsening shortness of breath, cough or congestion. He is maintaining O2 saturations in the 90s on room air. Laying flat in bed. Sodium 132. Potassium 4.5. Bicarb 21. BUN 65. Creatinine 8.11. Glucose 72. AST 104. ALT 175. Creatinine kinase 2293. He remains on the CIWA protocol. Remains on Seroquel. NicoDerm patch in place. Continued on antibiotics in the form of ceftriaxone. Plan is for hemodialysis today. His urine output is improving. The patient is seen today January 14, 2024 in follow-up on the regular medical floor. He is laying flat in bed. Awake and alert in no acute distress. No worsening shortness of breath, cough or congestion. He has been calm and cooperative. Follow-up blood cultures revealed no growth. Cerebrospinal fluid cultures revealed no growth. Today's labs are pending. Urine output has been increasing. Nephrology is following and plans to try to hold off dialysis for now. Avoiding nephrotoxic medications. He remains on antibiotics in the form of ceftriaxone. Heparin for DVT prophylaxis. NicoDerm patch in place. Continued on Seroquel. Still requiring occasional Ativan. On today's evaluation of 01/15/2024, the patient is being seen for a follow-up. The patient is recovering from acute alcohol withdrawal syndrome. He did encounter some metabolic encephalopathy and he seems to be more appropriate. The same time, the patient Had coagulase-negative bacteremia on 2 separate blood cultures and repeat blood cultures are essentially negative. The patient is currently on IV Rocephin. He is calm and comfortable and resting comfortably in bed. His pulse ox is 94% on room air oxygen. His white cell close of 12.3 with a hemoglobin of 7 and a platelet count of 287. Sodium is at 140, BUN is at 50 with a creatinine of 7.0 and a potassium level is at 5.1 and a bicarb level is at 19.4. The patient is currently undergoing hemodialysis. He is known to have history of alcoholism, hepatitis C, history of IV drug use, and during this current hospital stay, the patient also tested positive for RSV on 01/04/2024. He is following commands today. Answer questions appropriately. He is being seen by nephrology. He is going to undergo hemodialysis as the creatinine is at 7.0. Will monitor his renal recovery. Amlodipine was also added for tighter blood pressure control. On 01/16/2024, the patient is being seen for a follow-up. Doing well. No specific complaints. Resting comfortably in bed. Unable to complete a full dialysis session yesterday as the patient's dialysis catheter was malfunctioning and another catheter to be inserted at the later stage. Nephrology on the case and they are addressing the patient's need for dialysis. Meanwhile, the patient's urine output essentially low and the patient's BUN is at 50 with a creatinine of 7.0. Sodium is at 140. WBC count of 12.3 with a hemoglobin of 7. The patient has been voiding and the plan is for vascular surgery to exchange dialysis catheter to be followed up with dialysis session tomorrow. The patient is currently on room air oxygen. The patient is afebrile. He reports generalized weakness and fatigue. He is also complaining of episodic diarrhea. Tolerating his diet. Not taking any form of antibiotics at this point in time. On today's evaluation of 01/17/2024, the patient is being seen for a follow-up. The patient is to undergo hemodialysis today. Following that, the dialysis catheter is to be removed and possibly to be replaced at a later stage depending on his progress. His white cell count is at 9.5 with a hemoglobin of 7.4. BUN is at 34 with a creatinine of 4.8 and a sodium levels at 142. Procalcitonin level is at 0.18. Nephrology is on the case. Note that the patient has a normal baseline creatinine. He did undergo a rhabdomyolysis secondary to a fall and immobility and his CPK improved. He was also treated for staphylococcal bacteremia and the patient completed IV antibiotics. Repeat blood cultures have been negative and the most recent pending blood cultures from 01/15/2028 and has shown no interval growth. His vitals are stable. He is on room air oxygen with a pulse ox of 97%. Blood pressure is slightly elevated and the patient is currently on clonidine patch, amlodipine 5 mg p.o. twice a day and he is also on Coreg 3.125 mg twice a day. On today's evaluation of 01/18/2024, the patient is being seen for a follow-up. The patient is doing well. No specific complaints. The patient is able to void. Creatinine is improving. Noted the patient underwent a session of hemodialysis yesterday. The patient had dialysis for a total of 1 hour. Following that, the catheter was removed and the catheter itself was malfunctioning. He will be held off dialysis for now and he is going to be monitored. He is resting comfortably in bed. No active complaints otherwise for now. He is on room air oxygen. BUN is at 23 with a creatinine of 4.1 and a sodium level is at 144 and a potassium level is at 3.7. No focal neurological deficits. No chest pain. No shortness of breath. No altered mentation. Current blood pressure is 150/77 and the patient is currently maintained on a combination of Coreg and hydralazine for blood pressure control. The patient is also on Norvasc 5 mg p.o. twice a day. On today's evaluation of 01/19/2024, the patient is being seen for a follow-up. Resting comfortably in bed. Creatinine continues to improve and the creatinine is down to 3.7 and the BUN is 22. The patient is being seen by nephrology. The patient is voiding. He is producing good urine output. The plan is to hold off dialysis for now. The patient is receiving gentle IV hydration. He is also on IV iron. The WBC count is at 9.5 with a hemoglobin 7.4. The patient remains on room air oxygen. No respiratory difficulties. Objective - Vital Signs Vital signs: Vital Signs Temp 98.2 F 01/19/24 07:33 Pulse 83 01/19/24 07:33 Resp 16 01/19/24 07:33 BP 147/83 01/19/24 07:33 Pulse Ox 95 01/19/24 07:33 FiO2 Intake & Output 01/18/24 01/19/24 01/19/24 18:59 06:59 18:59 Intake Total 3594 Output Total 3100 1800 Balance 494 -1800 Weight 89 kg Intake: IV 120 Sodium Chloride 0.9% 1, 120 000 ml @ 40 mls/hr IV . Q24H KATARZYNA Rx#:[id number] Intake, IV Titration 500 Amount Sodium Chloride 0.45% 1, 500 000 ml @ 50 mls/hr IV . Q20H KATARZYNA Rx#:[id number] Oral 2974 Output: Urine 3100 1800 Other: Voiding Method Toilet Urinal # Voids 3 - Exam GENERAL EXAM: Alert, calm, cooperative 38-year-old male, on room air, in no apparent distress. HEAD: Normocephalic. EYES: Normal reaction of pupils, equal size. NOSE: Clear with pink turbinates. THROAT: No erythema or exudates. NECK: No masses, no JVD. CHEST: No chest wall deformity. LUNGS: Equal air entry with no crackles, wheeze, rhonchi or dullness. CVS: S1 and S2 normal with no audible murmur, regular rhythm. ABDOMEN: No hepatosplenomegaly, normal bowel sounds, no guarding or rigidity. SPINE: No scoliosis or deformity SKIN: No rashes CENTRAL NERVOUS SYSTEM: No focal deficits, tone is normal in all 4 extremities. EXTREMITIES: There is no peripheral edema. No clubbing, no cyanosis. Peripheral pulses are intact. - Labs CBC & Chem 7: 01/17/24 05:47 01/19/24 06:21 Labs: Abnormal Lab Results - Last 24 Hours (Table) 01/18/24 Range/Units 05:30 Iron 36 L (65-175) UG/DL % Saturation 10.08 L (15.00-50.00) Microbiology - Last 24 Hours (Table) 01/15/24 12:18 Blood Culture - Preliminary Blood Assessment and Plan Plan: Acute alcohol withdrawal syndrome, currently inactive and stable without any ongoing signs of alcohol withdrawal. Mental status is stable for now Acute metabolic encephalopathy, improved Diarrhea, check stool for C. difficile colitis Possible bacteremia secondary to coagulase-negative staphylococci, likely contam inant. This is a coagulase-negative staph. The patient is currently on no antibiotics. Hypothermia, resolved Acute transaminitis, AST and ALT are mildly elevated Acute RSV infection, no signs of any respiratory compromise Acute kidney injury secondary to rhabdomyolysis requiring hemodialysis, and the patient's hemodialysis currently on hold and the patient is voiding and the creatinine is down to 3.7 History of alcoholism History of hepatitis C History of gastroesophageal reflux disease History of IV drug abuse History of pancreatitis History of bipolar disorder and depression Plan: Renal function is improving and the creatinine is down to 3.7 Monitor urine output Monitor creatinine Will hold off dialysis for now Currently stable and on room air Remains on the CIWA protocol Increase his activity as tolerated Continue Coreg 6. 25 mg twice a day Continue hydralazine 50 mg p.o. 3 times daily Amlodipine 5 mg p.o. twice daily for tighter blood pressure control Monitor blood pressure Seroquel 100 mg twice a day IV fluids with normal saline at rate of 40 cc an hour We will continue to follow
[2024-01-19] MEDS: MAGNESIUM OXIDE 400 MG TAB PO SCH (22:10)
--- NOTE | 2024-01-20 08:32 | P.PN ---
Subjective Progress Note Date: 01/19/24 patient is a 38-year-old gentleman past medical significant for alcohol abuse, liver disease who presented to the ER for altered mental status. Patient has a history of alcohol abuse and has multiple admissions to this hospital for alcohol detox. Patient was brought in the ED by EMS after being found lying facedown in snow. There was no obvious sign of any trauma. Patient was unable to respond to any questions. EMS brought him immediately to the ER Initial lab work done in the ER showed WBC 22, hemoglobin 16.4, platelet count 274, sodium 152, potassium 5.1, BUN 38, creatinine 3.47, glucose 105, bilirubin 0.7, AST 1723, ALT 399, troponin 2.39 EKG done in the ER showed heart rate of 125, no ST segment elevation or depression seen, no T-wave inversions seen. Chest x-ray done in the ER showed no acute cardiopulmonary process CT head done showed no acute intracranial process CT cervical spine negative for any acute fracture or dislocation Patient admitted to internal medicine service. On my interview with patient, patient was much more responsive, kept on asking about getting soda and water. Stated that he has been laying on the ground for more than 15 hours. Patient is currently running a fever. Denies any chest pain or shortness of breath. Complaining of generalized body aches 01/05. Patient seen and examined. Blood work done this morning showed WBC 10.5, hemoglobin 9.8, platelet count 137, sodium 132, potassium 3.8, BUN 60, creatinine 4.02, calcium 6, CK greater than 331126. 2D echo done showed LVEF of 50 to 55%, no mitral regurg, trace tricuspid regurg 01/06. Patient seen and examined. Currently in restraints. Currently getting dialysis. Complaining of pain in his tongue, apparently bit his tongue during the fall. 01/07. Patient seen and examined. Continues to be in ICU. Currently on Precedex and IV fluids. Patient currently off restraints, is alert to self. 01/08. Patient seen and examined.Blood work done this morning showed WBC 8.7, hemoglobin 9.3, sodium 137, potassium 4.7, BUN 66, creatinine 6.25, AST is 1516, ALT is 546, currently on 2 L of oxygen. Patient is alert, answering questions, currently on Precedex drip. 01/09/2024 Patient is in MICU. Currently lying in the bed. Awake and alert but lethargic and drowsy. Currently on room air. Tolerating oral diet. Laboratory data showed WBC 7.4 hemoglobin 7.8 and platelets 124, sodium 1:30 potassium 3.6 chloride 103 bicarb is 22 BUN 59 and creatinine 5.67 01/10/2024 Patient is in the MICU. Awake alert and oriented. Seems to be more awake today. On room air. No complaints of chest pain or shortness breath. Patient does have good oral input. No fever no chills. Laboratory data showed WBC 6.7 hemoglobin 8.0 and platelets 136, sodium 1:30 potassium 3.3 chloride 103 bicarb is 26 BUN 40 and creatinine trending down to 4.63 today. Calcium 7.1 and pro calcitonin was 1.46. Patient is on antibiotics ceftriaxone. ID, nephrology and pulmonary is on board. 01/11/2024 Patient is resting in the bed. On room air. Able to ambulate in the room. Patient is being transferred to ICU. Urine output has been improving. Last hemodialysis on 01/09/2024. Patient has been afebrile. Repeat blood cultures negative. Laboratory data showed no illicit 5.9 hemoglobin 9.2 and platelets 154 sodium 133 potassium 2.3 and chloride 103 and bicarb 23 BUN 53 and creatinine 6.39. Patient is on normal saline at 40 mL per hour. On antibiotics ceftriaxone. 01/12/2024 Patient is currently in the telemetry unit. Patient is lying in the bed. Awake alert and orient x 3. No complaints of chest pain. Denies any worsening shortness of breath. No cough or sputum function. Patient is being cannula antibiotics ceftriaxone. Currently on IV hydration with normal saline at 40 cc/h. Patient is tolerating dysphagia level 3 diet. Laboratory pressure WBC 7.0 hemoglobin 7.9 and platelets 211 Sodium 130 potassium 4.2 chloride 104 bicarb is 19 BUN 16 creatinine went up to 7.41 again today. 01/13. Patient seen and examined. Patient has swelling of upper extremities, states he is making urine. Patient is calm. Alert and oriented. 01/14. Patient seen and examined. Patient was sitting in the chair, stated he took a shower this morning feels much better compared to yesterday. Denies any fever or chills. Vital signs stable 01/15. Patient seen and examined. Lab work done in the morning showed WBC 12.36, hemoglobin 7, sodium is 140, potassium is 5.1, BUN is 50, creatinine 7. Vital signs are temperature 98.7, heart rate of 77, respiratory 18, blood pressure 167/101 01/16. Patient seen and examined. Complaining of diarrhea. Tolerating diet 01/17/2024 Patient is seen in follow-up today with nephrology following closely. Patient received about 1 hour of ultrafiltration today and dialysis catheter has been malfunctioning recommending to remove this catheter and monitor over the next few days with follow-up labs. Will follow-up with nephrology to discuss further with discharge planning if patient will require permanent catheter placement and continued outpatient dialysis. Patient reporting some abdominal pain with nausea and will add Zofran and continue with as needed medications. Patient has completed ceftriaxone and infectious diseases following closely. Social work following as well and working with guardian on discharge planning. Patient does have CIWA protocol although not actively withdrawing. Recommend as needed Ativan orally. Encouraged increase activity as tolerated. 01/18/2024 Patient is seen and evaluated in follow-up today. Patient had femoral catheter removed by vascular surgery yesterday and follow-up labs show a creatinine of 4.1 with a BUN of 23.9, sodium is 144 and potassium is 3.7. Magnesium was low yesterday and replaced and follow-up is 1.8 today. Patient also continues to be followed by infectious disease maintained off antibiotics being closely monitored. Patient to continue with increased activity as tolerated and encour aged oral intake renal diet. Patient will continue on half-normal saline and follow-up with repeat labs. 01/19/2024 Patient is seen and evaluated in follow-up with nephrology and infectious disease following. Patient is status post hemodialysis and catheter was removed. Awaiting further evaluation from nephrology over the next few days on kidney functions to determine if patient will require indwelling permacath placement for continued hemodialysis in the outpatient setting. Encouraged to increase activity as tolerated. Will follow-up with repeat labs. REVIEW OF SYSTEMS: CONSTITUTIONAL: No fever, no malaise,. CARDIOVASCULAR: No chest pain, no palpitations, no syncope. PULMONARY: No shortness of breath, no cough, GASTROINTESTINAL: Reports occasional nausea although none today, no vomiting, reports tolerating diet NEUROLOGICAL: No headaches, no weakness PHYSICAL EXAMINATION: GENERAL: The patient is alert and oriented x3, not in any acute distress. Well developed, well nourished. Appears older than stated age, obese HEENT: Pupils are round and equally reacting to light. EOMI. No scleral icterus. No conjunctival pallor. Normocephalic, atraumatic. No pharyngeal erythema. No thyromegaly. CARDIOVASCULAR: S1 and S2 present. No murmurs, rubs, or gallops. PULMONARY: Chest is clear to auscultation, no wheezing or crackles. ABDOMEN: Soft, nontender, nondistended, normoactive bowel sounds. No palpable organomegaly. MUSCULOSKELETAL: 1Plus edema of lower extremities bilaterally EXTREMITIES: No cyanosis, clubbing,. NEUROLOGICAL: Gross neurological examination did not reveal any focal deficits. SKIN: No rashes. Assessment: Acute metabolic encephalopathy. Improving. Acute kidney injury secondary to ATN due to infection and rhabdomyolysis. requiring hemodialysis. Started on 01/05/2024. Temporary cath removed on 01/17/2024 Gram-positive Bacteremia. Coagulase-negative staph. Repeat blood cultures negative. Sepsis Acute Rhabdomyolysis secondary to fall Hypothermia, resolved Hypernatremia. Resolved. Hypocalcemia secondary to acute kidney injury and rhabdomyolysis. Leukocytosis, resolved Elevated troponin level. Ratio of CPK and troponin suggest skeletal muscle injury Acute transaminitis Fall History of alcohol abuse Acute alcohol withdrawal symptoms History of depression Obesity with a BMI of 33.5 GI prophylaxis DVT prophylaxis Full code Plan: Patient maintained on gentle IV hydration with nephrology following closely. Temporary catheter removed 01/17/2024 and holding off on dialysis and will follow-up on repeat labs and monitor closely if patient will require outpatient dialysis. Creatinine slightly i improving daily will follow-up with repeat labs and patient is continued on half-normal saline per nephrology recommendations recommending labs in the a.m. patient admits to producing urine Case management/social work following working on discharge planning and awaiting further nephrology instruction if patient will require hemodialysis in the outpatient setting Patient was continued on CIWA protocol although not actively withdrawing and will continue with as needed oral Ativan Patient was continued on antibiotics with infectious disease following and cultures have remained negative and being monitored off antibiotic therapy Will follow-up with repeat labs and monitor kidney functions along with electrolytes Encouraged to increase activity as tolerated Due to multiple complex medical issues, prognosis is guarded The impression and plan of care has been dictated by Marlena Roque, Nurse Practitioner as directed. Dr. Merle MD I have performed a history and examination and MDM of this patient, discussed the same with the dictator, and agree with the dictator's assessment and plan as written ,documented as a scribe. Based on total visit time, I have performed more than 50% of the visit. Objective - Vital Signs Vital signs: Vital Signs Temp 98.2 F 01/19/24 07:33 Pulse 83 01/19/24 07:33 Resp 16 01/19/24 07:33 BP 147/83 01/19/24 07:33 Pulse Ox 95 01/19/24 07:33 FiO2 Intake & Output 01/18/24 01/19/24 01/19/24 18:59 06:59 18:59 Intake Total 3594 Output Total 3100 1800 Balance 494 -1800 Weight 89 kg Intake: IV 120 Sodium Chloride 0.9% 1, 120 000 ml @ 40 mls/hr IV . Q24H [facility] Rx#:[id number] Intake, IV Titration 500 Amount Sodium Chloride 0.45% 1, 500 000 ml @ 50 mls/hr IV . Q20H [facility] Rx#:[id number] Oral 2974 Output: Urine 3100 1800 Other: Voiding Method Toilet Urinal # Voids 3 - Labs CBC & Chem 7: 01/17/24 05:47 01/19/24 06:21 Labs: Abnormal Lab Results - Last 24 Hours (Table) 01/18/24 Range/Units 05:30 Iron 36 L (65-175) UG/DL % Saturation 10.08 L (15.00-50.00) Microbiology - Last 24 Hours (Table) 01/15/24 12:18 Blood Culture - Preliminary Blood
[2024-01-20 09:54] LABS: BUN/Creat Ratio 7.06 Ratio (12.00-20.00); Blood Urea Nitrogen 21.9 mg/dL (9.0-27.0); Calcium 9.5 mg/dL (8.7-10.3); Carbon Dioxide 24.2 mmol/L (21.6-31.8); Chloride 108 mmol/L (96-109); Glucose 78 mg/dL (70-110); Magnesium 1.4 mg/dL (1.5-2.4); Potassium 4.2 mmol/L (3.5-5.5); Sodium 145 mmol/L (135-145)
--- NOTE | 2024-01-20 11:41 | P.PN ---
Subjective Patient is seen for follow-up for acute kidney injury. Status post temporary hemodialysis for severe oliguric ATN. Renal function has been improving. Last hemodialysis was 01/17/2024 Dialysis catheter has been removed. No significant complaints today. Objective - Vital Signs Vital signs: Vital Signs Temp 98 F 01/20/24 07:13 Pulse 90 01/20/24 07:13 Resp 19 01/20/24 07:13 BP 169/71 01/20/24 07:13 Pulse Ox 92 L 01/20/24 07:13 FiO2 Intake & Output 01/19/24 01/20/24 01/20/24 18:59 06:59 18:59 Intake Total 1018 1105 Output Total 2400 4800 Balance -1382 -3695 Weight 86 kg Intake: Intake, IV Titration 900 Amount Sodium Chloride 0.45% 1, 800 000 ml @ 50 mls/hr IV . Q20H [facility] Rx#:[id number] Sodium Ferric Gluconat- 100 Sucrose 125 mg In Sodium Chloride 0.9% 100 ml @ 100 mls/hr IVPB DAILY [facility] Rx#:[id number] Oral 118 1105 Output: Urine 2400 4800 Other: # Voids 2 - Exam Patient is awake, comfortable, no acute distress Examination of the heart S1 and S2 Examination of the lungs bilateral breath sounds are heard Abdomen is soft nontender Examination of lower extremity shows no significant edema MEDICAL RECORD CODER exam grossly intact - Labs CBC & Chem 7: 01/17/24 05:47 01/20/24 06:33 Labs: Abnormal Lab Results - Last 24 Hours (Table) 01/19/24 01/20/24 Range/Units 06:21 06:33 Anion Gap 13.20 H 12.80 H (4.00-12.00) mmol/L Creatinine 3.7 H 3.1 H (0.6-1.5) mg/dL Est GFR (CKD-EPI) 21 L 26 L (>=60) BUN/Creatinine Ratio 6.16 L 7.06 L (12.00-20.00) Ratio Calcium 8.5 L (8.7-10.3) mg/dL Magnesium 1.4 L (1.5-2.4) mg/dL Assessment and Plan Assessment: 1. Acute kidney injury secondary to ATN secondary to severe sepsis and rhabdomyolysis. Baseline creatinine 0.5-0.6 and >8 this admission. Started on hemodialysis January 05, 2024. No hydronephrosis noted on abdominal ultrasound. Creatinine down to 3.1 today. Last hemodialysis January 17, 2024 for 1 hour. 2. Rhabdomyolysis secondary to fall/immobility. CK levels improved. 3. Severe sepsis secondary to staph bacteremia. s/p antibiotics. 4. Metabolic acidosis secondary to acute kidney injury. Improved from admission. 5. Hyponatremia secondary to acute kidney injury. Improved. 6. Hypocalcemia secondary to acute kidney injury and rhabdomyolysis. Improved. 7. Benign hypertension. 8. Hyperphosphatemia secondary to acute kidney injury. Phosphorus level 5.3 dated January 17, 2024. On Renvela with meals. 9. Hypomagnesemia from poor intake. Replaced. Better. 10. Anemia. Iron deficiency noted. Maintained on IV iron Plan: Continue to avoid nephrotoxic agents. Repeat labs in a.m. with CBC
--- NOTE | 2024-01-20 12:28 | P.PN ---
Subjective Progress Note Date: 01/20/24 This is a 38-year-old white male with history of multiple medical problems including alcoholism, hepatitis C, hypertension, GERD, patient was brought into the ER yesterday after he was noted to be face down in the snow, upon EMS arrival, the patient was hypothermic, and altered mental status. In the ER, the patient was noted to have temp of 102.6, he was tachycardic, and was not hypotensive or hypoxic. Workup in the ER included CBC which showed leukocytosis. His bicarb was noted to be low, patient was noted to have anion gap metabolic acidosis, he was also noted to have renal failure with a BUN of 51 creatinine 3.45. His CPK was significantly elevated almost 92,000, troponin elevated at 1.6, and liver enzymes were also elevated including AST and ALT. There was evidence of blood in the urine. No drug screen was done at the time of arrival, but his alcohol level was less than 10. His RSV PCR was positive. Drug screen in the ICU was positive for barbiturates, amphetamine, methamphetami ne, and benzodiazepines. Patient was seen by many consultants including infectious disease, patient was started empirically on antibiotics in the form of Rocephin and vancomycin, and infectious disease recommended a lumbar puncture on this patient. Initial chemistry on the spinal fluid seems to be unremarkable. Final report is pending. His blood cultures today are positive for gram-positive cocci in clusters. Patient was seen by nephrology today, and recommending starting the patient on hemodialysis. Patient was felt to have acute kidney injury secondary to ATN, and severe sepsis and rhabdomyolysis, oliguric, unresponsive to diuretics, and there was no hydronephrosis on the abdominal ultrasound. At any rate patient is scheduled to have a dialysis catheter placement today. Last night the patient was on the regular medical floor, I was made aware of this patient because his CIWA score was 20,, patient was already on a bicarb drip, and I have recommended transferring the patient out of the floor to the ICU saw this patient this morning, reviewed all his labs and workup, remains on bicarb drip, empirically on antibiotics for his presumptive severe sepsis and bacteremia as noted on blood cultures today, patient continues to have significantly elevated CPK, continues to have w orsening renal failure. Blood pressure was high and I recommended Cleviprex at 2 mg/h. Also recommended a drug screen to be done. Patient did not require Precedex, he is agitation is well-controlled with Ativan. According to the patient his last alcohol drink was 2 days ago. Patient is not a great historian, seems to mumble but does not give adequate history. And he is by all means encephalopathic. But able to protect his airways, and able to cough and clear secretions. Hence did not feel the need to intubate this patient at this point. Procalcitonin level this morning is 45.9 Patient was reevaluated today on 01/06/2024, his blood cultures are actually now coagulase-negative staph, most likely blood cultures are contaminated. Patient is still restless and agitated easily, remains in the ICU, he will be undergoing dialysis today, he had dialysis yesterday. Complaining of hurting all over, patient remains a bit confused, and lethargic. His creatinine is high at 4.3, hemoglobin is down from 16.3 on admission now 10.3, platelets are coming down, hence I am stopping his heparin. CPK remains high at 158,000, patient is still receiving fluids at 200 cc/h, and he will have more dialysis today. Patient is extremely oliguric. Liver enzymes are also elevated with a AST of 2498, and ALT 573, improving compared to yesterday Patient was reevaluated today on 01/07/2024, remains in the ICU, marginal at best. On 3 L nasal cannula, remains a bit encephalopathic with a slight im provement in his overall mental status patient knows that he is at [facility], he realized the year is 2023. Patient continues to have marginal urine output, he is oliguric, intermittently on hemodialysis, patient remains on daptomycin and ceftriaxone, blood cultures were contaminated with staph/coagulase negative. Spinal fluid cultures have been negative CPK is coming down today, he is down to 89,000 from 159,000 yesterday. Renal functioning is about the same with a creatinine 4.60 and BUN of 49, Liver enzymes are steadily improving. And ammonia level is less than 90. His IV fluid remains at 200 cc/h patient is receiving MVI. Progress note dated January 08, 2024. 38-year-old male who was admitted to the hospital on 04 January. The patient came to the intensive care unit on the . Currently, the patient is seen today in room 255. The patient is on room air. He is getting saline at 130 cc an hour. He continues on dexmedetomidine at 0.4 mcg/kg/h. The patient has had hemodialysis, twice, but is planning to have hemodialysis again today. Will add some Haldol, Seroquel, and clonidine patch to his regimen, to get him off the dexmedetomidine. Current labs include white count 8.7, hemoglobin 9.3, hematocrit 27.8, and platelet count 108,000. Sodium 131, potassium 4.7, chlorides 105, CO2 14, anion gap 12, BUN 66, creatinine 6.25. AST is 1516. ALT is 546. CK is down from 89,000, to 73,807. Blood cultures are positive for coag negative staph. No chest x-ray to report on. Progress note dated January 09, 2024. 38-year-old male who was admitted to the hospital on January 04. The patient came to the intensive care unit, on the . Currently, the patient is seen today in room 255. The patient continues on room air. The patient is getting saline at 75 cc an hour. He will have another hemodialysis session today, which is #4. Yesterday, he had hemodialysis, and 2 L was removed. He is currently off the dexmedetomidine. White count 7.4, hemoglobin 7.8, hematocrit 22.8, platelet count 124,000. Sodium 130, potassium 3.6, chlorides 103, CO2 22, BUN 59, creatinine 5.67. His calcium is 7.0. Blood cultures were positive for coag negative staph. Progress note dated January 10, 2024. 38-year-old male again seen today in room 255, the intensive care unit. Currently, the patient is on room air. He is getting saline at 40 cc an hour. According to his nurse, he had an uneventful night. In our opinion, the patient is stable to be transferred out of the intensive care unit. Current labs include a white count of 6.7, hemoglobin 8, hematocrit 23.9, and a platelet count of 136,000. Sodium 130, potassium 3.3, chlorides 103, CO2 26, BUN 40, creatinine 4.63. His CK is down to 36,783. Procalcitonin level is 1.46. Progress note dated January 11, 2024. 38-year-old male seen again in room 255. The patient is currently doing better. The patient is on room air. He is getting saline at 40 cc an hour. According to his nurse, the patient had an uneventful night. The patient is calm, and not agitated. No new labs today. Chest x-ray suggest some bilateral subsegmental atelectasis. The patient is seen today January 12, 2024 in follow-up on the regular medical floor. He is currently resting comfortably in bed. Awake and alert in no acute distress. Maintaining O2 saturation in the 90s on room air. No IV fluids. He has been calm and cooperative. Follow-up blood cultures revealed no growth. Cerebrospinal fluid cultures revealed no growth. No new labs today. He remains on ceftriaxone. NicoDerm patch in place. Heparin for DVT prophylaxis. He remains on the CIWA protocol. He did require Ativan early this morning. The patient is seen today January 13, 2024 in follow-up on the regular medical floor. He is awake and alert in no acute distress. Resting comfortably in bed. Denies any worsening shortness of breath, cough or congestion. He is maintaining O2 saturations in the 90s on room air. Laying flat in bed. Sodium 132. Potassium 4.5. Bicarb 21. BUN 65. Creatinine 8.11. Glucose 72. AST 104. ALT 175. Creatinine kinase 2293. He remains on the CIWA protocol. Remains on Seroquel. NicoDerm patch in place. Continued on antibiotics in the form of ceftriaxone. Plan is for hemodialysis today. His urine output is improving. The patient is seen today January 14, 2024 in follow-up on the regular medical floor. He is laying flat in bed. Awake and alert in no acute distress. No worsening shortness of breath, cough or congestion. He has been calm and cooperative. Follow-up blood cultures revealed no growth. Cerebrospinal fluid cultures revealed no growth. Today's labs are pending. Urine output has been increasing. Nephrology is following and plans to try to hold off dialysis for now. Avoiding nephrotoxic medications. He remains on antibiotics in the form of ceftriaxone. Heparin for DVT prophylaxis. NicoDerm patch in place. Continued on Seroquel. Still requiring occasional Ativan. On today's evaluation of 01/15/2024, the patient is being seen for a follow-up. The patient is recovering from acute alcohol withdrawal syndrome. He did encounter some metabolic encephalopathy and he seems to be more appropriate. The same time, the patient Had coagulase-negative bacteremia on 2 separate blood cultures and repeat blood cultures are essentially negative. The patient is currently on IV Rocephin. He is calm and comfortable and resting comfortably in bed. His pulse ox is 94% on room air oxygen. His white cell close of 12.3 with a hemoglobin of 7 and a platelet count of 287. Sodium is at 140, BUN is at 50 with a creatinine of 7.0 and a potassium level is at 5.1 and a bicarb level is at 19.4. The patient is currently undergoing hemodialysis. He is known to have history of alcoholism, hepatitis C, history of IV drug use, and during this current hospital stay, the patient also tested positive for RSV on 01/04/2024. He is following commands today. Answer questions appropriately. He is being seen by nephrology. He is going to undergo hemodialysis as the creatinine is at 7.0. Will monitor his renal recovery. Amlodipine was also added for tighter blood pressure control. On 01/16/2024, the patient is being seen for a follow-up. Doing well. No specific complaints. Resting comfortably in bed. Unable to complete a full dialysis session yesterday as the patient's dialysis catheter was malfunctioning and another catheter to be inserted at the later stage. Nephrology on the case and they are addressing the patient's need for dialysis. Meanwhile, the patient's urine output essentially low and the patient's BUN is at 50 with a creatinine of 7.0. Sodium is at 140. WBC count of 12.3 with a hemoglobin of 7. The patient has been voiding and the plan is for vascular surgery to exchange dialysis catheter to be followed up with dialysis session tomorrow. The patient is currently on room air oxygen. The patient is afebrile. He reports generalized weakness and fatigue. He is also complaining of episodic diarrhea. Tolerating his diet. Not taking any form of antibiotics at this point in time. On today's evaluation of 01/17/2024, the patient is being seen for a follow-up. The patient is to undergo hemodialysis today. Following that, the dialysis catheter is to be removed and possibly to be replaced at a later stage depending on his progress. His white cell count is at 9.5 with a hemoglobin of 7.4. BUN is at 34 with a creatinine of 4.8 and a sodium levels at 142. Procalcitonin level is at 0.18. Nephrology is on the case. Note that the patient has a normal baseline creatinine. He did undergo a rhabdomyolysis secondary to a fall and immobility and his CPK improved. He was also treated for staphylococcal bacteremia and the patient completed IV antibiotics. Repeat blood cultures have been negative and the most recent pending blood cultures from 01/15/2028 and has shown no interval growth. His vitals are stable. He is on room air oxygen with a pulse ox of 97%. Blood pressure is slightly elevated and the patient is currently on clonidine patch, amlodipine 5 mg p.o. twice a day and he is also on Coreg 3.125 mg twice a day. On today's evaluation of 01/18/2024, the patient is being seen for a follow-up. The patient is doing well. No specific complaints. The patient is able to void. Creatinine is improving. Noted the patient underwent a session of hemodialysis yesterday. The patient had dialysis for a total of 1 hour. Following that, the catheter was removed and the catheter itself was malfunctioning. He will be held off dialysis for now and he is going to be monitored. He is resting comfortably in bed. No active complaints otherwise for now. He is on room air oxygen. BUN is at 23 with a creatinine of 4.1 and a sodium level is at 144 and a potassium level is at 3.7. No focal neurological deficits. No chest pain. No shortness of breath. No altered mentation. Current blood pressure is 150/77 and the patient is currently maintained on a combination of Coreg and hydralazine for blood pressure control. The patient is also on Norvasc 5 mg p.o. twice a day. On today's evaluation of 01/19/2024, the patient is being seen for a follow-up. Resting comfortably in bed. Creatinine continues to improve and the creatinine is down to 3.7 and the BUN is 22. The patient is being seen by nephrology. The patient is voiding. He is producing good urine output. The plan is to hold off dialysis for now. The patient is receiving gentle IV hydration. He is also on IV iron. The WBC count is at 9.5 with a hemoglobin 7.4. The patient remains on room air oxygen. No respiratory difficulties. On today's evaluation of 01/20/2024, the patient is resting comfortably. Recovery from acute kidney injury. Renal function continues to improve. His last hemodialysis was on 01/17/2024 and on today's blood work, creatinine is down to 3.1 and the patient is voiding. Rest of the electrolytes are all within normal limits. Hemoglobin is at 7.4 with a white cell count of 9. The patient has adequate blood pressure control. Patient remains on room air oxygen. Objective - Vital Signs Vital signs: Vital Signs Temp 98.0 F 01/20/24 02:00 Pulse 78 01/20/24 02:00 Resp 17 01/20/24 02:00 BP 144/77 01/20/24 02:00 Pulse Ox 96 01/20/24 02:00 FiO2 Intake & Output 01/19/24 01/20/24 01/20/24 18:59 06:59 18:59 Intake Total 1018 1105 Output Total 2400 4800 Balance -1382 -3695 Weight 86 kg Intake: Intake, IV Titration 900 Amount Sodium Chloride 0.45% 1, 800 000 ml @ 50 mls/hr IV . Q20H [facility]AT[facility]YNA Rx#:[id number] Sodium Ferric Gluconat- 100 Sucrose 125 mg In Sodium Chloride 0.9% 100 ml @ 100 mls/hr IVPB DAILY [facility]AT[facility]YNA Rx#:[id number] Oral 118 1105 Output: Urine 2400 4800 Other: # Voids 2 - Exam GENERAL EXAM: Alert, calm, cooperative 38-year-old male, on room air, in no apparent distress. HEAD: Normocephalic. EYES: Normal reaction of pupils, equal size. NOSE: Clear with pink turbinates. THROAT: No erythema or exudates. NECK: No masses, no JVD. CHEST: No chest wall deformity. LUNGS: Equal air entry with no crackles, wheeze, rhonchi or dullness. CVS: S1 and S2 normal with no audible murmur, regular rhythm. ABDOMEN: No hepatosplenomegaly, normal bowel sounds, no guarding or rigidity. SPINE: No scoliosis or deformity SKIN: No rashes CENTRAL NERVOUS SYSTEM: No focal deficits, tone is normal in all 4 extremities. EXTREMITIES: There is no peripheral edema. No clubbing, no cyanosis. Peripheral pulses are intact. - Labs CBC & Chem 7: 01/17/24 05:47 01/20/24 06:33 Labs: Abnormal Lab Results - Last 24 Hours (Table) 01/19/24 01/20/24 Range/Units 06:21 06:33 Anion Gap 13.20 H 12.80 H (4.00-12.00) mmol/L Creatinine 3.7 H 3.1 H (0.6-1.5) mg/dL Est GFR (CKD-EPI) 21 L 26 L (>=60) BUN/Creatinine Ratio 6.16 L 7.06 L (12.00-20.00) Ratio Calcium 8.5 L (8.7-10.3) mg/dL Magnesium 1.4 L (1.5-2.4) mg/dL Assessment and Plan Plan: Acute alcohol withdrawal syndrome, currently inactive and stable without any ongoing signs of alcohol withdrawal. Mental status is stable for now Acute metabolic encephalopathy, improved Diarrhea, check stool for C. difficile colitis Possible bacteremia secondary to coagulase-negative staphylococci, likely contaminant. This is a coagulase-negative staph. The patient is currently on no antibiotics. Hypothermia, resolved Acute transaminitis, AST and ALT are mildly elevated Acute RSV infection, no signs of any respiratory compromise Acute kidney injury secondary to rhabdomyolysis requiring hemodialysis, and the patient's hemodialysis currently on hold and the patient is voiding and the creatinine is down to 3.7 History of alcoholism History of hepatitis C History of gastroesophageal reflux disease History of IV drug abuse History of pancreatitis History of bipolar disorder and depression Plan: Renal function is improving and the creatinine is down to 3. pulmonary/renal function is improving and the patient has not1 having any hemodialysis Monitor urine output Monitor creatinine Will hold off dialysis for now Currently stable and on room air Remains on the CIWA protocol Increase his activity as tolerated Continue Coreg 6. 25 mg twice a day Continue hydralazine 50 mg p.o. 3 times daily Amlodipine 5 mg p.o. twice daily for tighter blood pressure control Monitor blood pressure Seroquel 100 mg twice a day IV fluids with normal saline at rate of 40 cc an hour Will sign off the case
--- NOTE | 2024-01-20 13:34 | P.PN ---
Subjective Progress Note Date: 01/20/24 Principal diagnosis: Reason for follow-up is fever and a positive blood culture Patient is a 38-year-old male with a past medical history of GERD for hypertension hepatitis C pancreatitis reflux history of alcoholism patient was brought into the ER by EMS after apparently the patient was noticed to be facedown in the snow when the EMS got him up he was unable to speak patient was hypothermic and subsequently brought into the ER for further evaluation, on arrival to the ER the patient did have a fever did have elevated white count chest x-ray UA was negative abdominal soft LP was done last night which came back negative as well. On today's evaluation that is 01/20/2024,the patient remains to be afebrile, patient is on room air not requiring supplemental oxygen and denies any shortness of breath no chest pain or cough.Patient denies having any nausea or vomiting, no abdominal pain and no diarrhea has been reported, patient dialysis catheter has been discontinued has been urinating. Patient creatinine is 3.1 no CBC was done today Objective - Vital Signs Vital signs: Vital Signs Temp 98 F 01/20/24 07:13 Pulse 90 01/20/24 07:13 Resp 19 01/20/24 07:13 BP 169/71 01/20/24 07:13 Pulse Ox 92 L 01/20/24 07:13 FiO2 Intake & Output 01/19/24 01/20/24 01/20/24 18:59 06:59 18:59 Intake Total 1018 1105 Output Total 2400 4800 Balance -1382 -3695 Weight 86 kg Intake: Intake, IV Titration 900 Amount Sodium Chloride 0.45% 1, 800 000 ml @ 50 mls/hr IV . Q20H [facility] Rx#:[id number] Sodium Ferric Gluconat- 100 Sucrose 125 mg In Sodium Chloride 0.9% 100 ml @ 100 mls/hr IVPB DAILY [facility] Rx#:[id number] Oral 118 1105 Output: Urine 2400 4800 Other: # Voids 2 - Exam GENERAL DESCRIPTION: Middle-age male lying in bed in no distress RESPIRATORY SYSTEM: Unlabored breathing , decreased breath sounds at bases HEART: S1 S2 regular rate and rhythm , ABDOMEN: Soft , no tenderness EXTREMITIES: No edema feet - Labs CBC & Chem 7: 01/17/24 05:47 01/20/24 06:33 Labs: Abnormal Lab Results - Last 24 Hours (Table) 01/20/24 Range/Units 06:33 Anion Gap 12.80 H (4.00-12.00) mmol/L Creatinine 3.1 H (0.6-1.5) mg/dL Est GFR (CKD-EPI) 26 L (>=60) BUN/Creatinine Ratio 7.06 L (12.00-20.00) Ratio Magnesium 1.4 L (1.5-2.4) mg/dL Assessment and Plan (1) Fever with leukocytosis and leukocyte count greater than or equal to 20,000 Current Visit: Yes Status: Acute Code(s): D72.829 - ELEVATED WHITE BLOOD CELL COUNT, UNSPECIFIED SNOMED Code(s): 658618159 (2) Positive blood culture Current Visit: No Status: Acute Code(s): R78.81 - BACTEREMIA SNOMED Code(s): 396340406 Plan: 1patient presented hospital with episode of unresponsiveness by the EMS patient did have features of sepsis running a fever did have elevated white count, initi al workup including a chest x-ray and UA has been negative the patient abdominal was soft on clinical examination and there was no evidence of any cellulitis with a 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 lab Dictation was produced using [employer] dictation software. please excuse any grammatical, word or spelling errors. Time with Patient: Less than 30
[2024-01-21 09:13] LABS: Basophils # (A) 0.11 X 10*3/uL (0.00-0.10); Basophils % (A) 1.7 %; Eosinophils # (A) 0.32 X 10*3/uL (0.04-0.35); HCT 26.7 % (39.6-50.0); HGB 8.4 g/dL (13.0-17.0); Lymphocytes # (A) 1.44 X 10*3/uL (0.90-5.00); Lymphocytes % (A) 22.7 %; MCHC 31.5 g/dL (32.0-37.0); Mean Platelet Volume 10.8 FL (9.5-12.2); NRBC Per 100 WBC 0 X 10*3/uL (0.00-0.01); Neutrophils # (A) 3.75 X 10*3/uL (1.80-7.70); Neutrophils % (A) 59.3 %; Platelet Count 347 X 10*3/uL (140-440); WBC 6.34 X 10*3/uL (4.50-10.00)
[2024-01-21 09:31] LABS: BUN/Creat Ratio 7.86 Ratio (12.00-20.00); Blood Urea Nitrogen 22.8 mg/dL (9.0-27.0); Calcium 9.6 mg/dL (8.7-10.3); Carbon Dioxide 23.8 mmol/L (21.6-31.8); Chloride 109 mmol/L (96-109); Glucose 95 mg/dL (70-110); Potassium 4.3 mmol/L (3.5-5.5); Sodium 145 mmol/L (135-145)
--- NOTE | 2024-01-21 11:27 | P.PN ---
Subjective Progress Note Date: 01/21/24 Principal diagnosis: Reason for follow-up is fever and a positive blood culture Patient is a 38-year-old male with a past medical history of GERD for hypertension hepatitis C pancreatitis reflux history of alcoholism patient was brought into the ER by EMS after apparently the patient was noticed to be facedown in the snow when the EMS got him up he was unable to speak patient was hypothermic and subsequently brought into the ER for further evaluation, on arrival to the ER the patient did have a fever did have elevated white count chest x-ray UA was negative abdominal soft LP was done last night which came back negative as well. On today's evaluation that is 01/21/2024, the patient continues to be afebrile, the patient is on room air and breathing comfortably, the Pt denies having any chest pain or cough, the patient denies having any abdominal pain no vomiting or any diarrhea has been reported by the nursing staff. Patient white count is 6.34, creatinine is 2 point 9 repeat blood culture negative Objective - Vital Signs Vital signs: Vital Signs Temp 97.6 F 01/21/24 01:59 Pulse 78 01/21/24 08:05 Resp 17 01/21/24 08:05 BP 135/65 01/21/24 01:59 Pulse Ox 98 01/21/24 01:59 FiO2 Intake & Output 01/20/24 01/21/24 01/21/24 18:59 06:59 18:59 Output Total 400 Balance -400 Weight 82.5 kg Output: Urine 400 Other: Voiding Method Toilet # Voids 2 - Exam GENERAL DESCRIPTION: Middle-age male lying in bed in no distress RESPIRATORY SYSTEM: Unlabored breathing , decreased breath sounds at bases HEART: S1 S2 regular rate and rhythm , ABDOMEN: Soft , no tenderness EXTREMITIES: No edema feet - Labs CBC & Chem 7: 01/21/24 06:16 01/21/24 06:16 Labs: Abnormal Lab Results - Last 24 Hours (Table) 01/21/24 01/21/24 Range/Units 06:16 06:16 RBC 3.00 L (4.40-5.60) X 10*6/uL Hgb 8.4 L (13.0-17.0) g/dL Hct 26.7 L (39.6-50.0) % MCHC 31.5 L (32.0-37.0) g/dL RDW 17.0 H (11.5-14.5) % Basophils # 0.11 H (0.00-0.10) X 10*3/uL Anion Gap 12.20 H (4.00-12.00) mmol/L Creatinine 2.9 H (0.6-1.5) mg/dL Est GFR (CKD-EPI) 28 L (>=60) BUN/Creatinine Ratio 7.86 L (12.00-20.00) Ratio C-Reactive Protein 2.70 H (0.00-0.80) mg/dL Microbiology - Last 24 Hours (Table) 01/15/24 12:18 Blood Culture - Final Blood Assessment and Plan (1) Fever with leukocytosis and leukocyte count greater than or equal to 20,000 Current Visit: Yes Status: Acute Code(s): D72.829 - ELEVATED WHITE BLOOD CELL COUNT, UNSPECIFIED SNOMED Code(s): 619030905 (2) Positive blood culture Current Visit: No Status: Acute Code(s): R78.81 - BACTEREMIA SNOMED Code(s): 425334927 Plan: 1patient presented hospital with episode of unresponsiveness by the EMS patient did have features of sepsis running a fever did have elevated white count, initial workup including a chest x-ray and UA has been negative the patient abdominal was soft on clinical examination and there was no evidence of any cellulitis with a question of possible [employer] infection however the patient did have LP completed last night by ER physician and is negative 2-patient with a positive blood culture with coagulase-negative staph with concern for possible pathogen vs contamination repeat blood culture negative, daptomycin was discontinued as of 01/11/2024 3-patient completed his course of IV Rocephin 4-patient did have resolution of his leukocytosis and the patient remains to be afebrile, continue to monitor the patient closely off antibiotics Dictation was produced using [employer] dictation software. please excuse any grammatical, word or spelling errors. Time with Patient: Less than 30
--- NOTE | 2024-01-21 14:49 | P.PN ---
Subjective Patient is seen for follow-up for acute kidney injury. Status post temporary hemodialysis for severe oliguric ATN. Renal function has been improving. Last hemodialysis was 01/17/2024 Dialysis catheter has been removed. No significant complaints today. Serum creatinine was 3.1 yesterday. Objective - Vital Signs Vital signs: Vital Signs Temp 98.1 F 01/21/24 07:35 Pulse 78 01/21/24 08:05 Resp 17 01/21/24 08:05 BP 141/84 01/21/24 07:35 Pulse Ox 97 01/21/24 07:35 FiO2 Intake & Output 01/20/24 01/21/24 01/21/24 18:59 06:59 18:59 Output Total 400 Balance -400 Weight 82.5 kg Output: Urine 400 Other: Voiding Method Toilet # Voids 2 - Exam Patient is awake, comfortable, no acute distress Patient appears euvolemic Abdomen is soft nontender Examination of lower extremity shows no significant edema [employer] exam grossly intact - Labs CBC & Chem 7: 01/21/24 06:16 01/21/24 06:16 Labs: Abnormal Lab Results - Last 24 Hours (Table) 01/21/24 01/21/24 Range/Units 06:16 06:16 RBC 3.00 L (4.40-5.60) X 10*6/uL Hgb 8.4 L (13.0-17.0) g/dL Hct 26.7 L (39.6-50.0) % MCHC 31.5 L (32.0-37.0) g/dL RDW 17.0 H (11.5-14.5) % Basophils # 0.11 H (0.00-0.10) X 10*3/uL Anion Gap 12.20 H (4.00-12.00) mmol/L Creatinine 2.9 H (0.6-1.5) mg/dL Est GFR (CKD-EPI) 28 L (>=60) BUN/Creatinine Ratio 7.86 L (12.00-20.00) Ratio C-Reactive Protein 2.70 H (0.00-0.80) mg/dL Microbiology - Last 24 Hours (Table) 01/15/24 12:18 Blood Culture - Final Blood Assessment and Plan Assessment: 1. Acute kidney injury secondary to ATN secondary to severe sepsis and rhabdomyolysis. Baseline creatinine 0.5-0.6 and >8 this admission. Started on hemodialysis January 05, 2024. No hydronephrosis noted on abdominal ultrasound. Creatinine down to 3.1 with good urine output. Last hemodialysis January 17, 2024 for 1 hour. 2. Rhabdomyolysis secondary to fall/immobility. CK levels improved. 3. Severe sepsis secondary to staph bacteremia. s/p antibiotics. 4. Metabolic acidosis secondary to acute kidney injury. Improved from admission. 5. Hyponatremia secondary to acute kidney injury. Improved. 6. Hypocalcemia secondary to acute kidney injury and rhabdomyolysis. Improved. 7. Benign hypertension. 8. Hyperphosphatemia secondary to acute kidney injury. Phosphorus level 5.3 dated January 17, 2024. On Renvela with meals. 9. Hypomagnesemia from poor intake. Replaced. Better. 10. Anemia. Iron deficiency noted. Status post IV iron Plan: Continue to avoid nephrotoxic agents. Patient is stable for discharge from nephrology standpoint. Encourage increased fluid intake.
[2024-01-21] MEDS: HYDROcodone/APAP 7.5-325MG 1 EACH TAB PO PRN (20:23)
--- NOTE | 2024-01-22 02:14 | P.PN ---
Subjective Progress Note Date: 01/20/24 patient is a 38-year-old gentleman past medical significant for alcohol abuse, liver disease who presented to the ER for altered mental status. Patient has a history of alcohol abuse and has multiple admissions to this hospital for alcohol detox. Patient was brought in the ED by EMS after being found lying facedown in snow. There was no obvious sign of any trauma. Patient was unable to respond to any questions. EMS brought him immediately to the ER Initial lab work done in the ER showed WBC 22, hemoglobin 16.4, platelet count 274, sodium 152, potassium 5.1, BUN 38, creatinine 3.47, glucose 105, bilirubin 0.7, AST 1723, ALT 399, troponin 2.39 EKG done in the ER showed heart rate of 125, no ST segment elevation or depression seen, no T-wave inversions seen. Chest x-ray done in the ER showed no acute cardiopulmonary process CT head done showed no acute intracranial process CT cervical spine negative for any acute fracture or dislocation Patient admitted to internal medicine service. On my interview with patient, patient was much more responsive, kept on asking about getting soda and water. Stated that he has been laying on the ground for more than 15 hours. Patient is currently running a fever. Denies any chest pain or shortness of breath. Complaining of generalized body aches 01/05. Patient seen and examined. Blood work done this morning showed WBC 10.5, hemoglobin 9.8, platelet count 137, sodium 132, potassium 3.8, BUN 60, creatinine 4.02, calcium 6, CK greater than [id number]. 2D echo done showed LVEF of 50 to 55%, no mitral regurg, trace tricuspid regurg 01/06. Patient seen and examined. Currently in restraints. Currently getting dialysis. Complaining of pain in his tongue, apparently bit his tongue during the fall. 01/07. Patient seen and examined. Continues to be in ICU. Currently on Precedex and IV fluids. Patient currently off restraints, is alert to self. 01/08. Patient seen and examined.Blood work done this morning showed WBC 8.7, hemoglobin 9.3, sodium 137, potassium 4.7, BUN 66, creatinine 6.25, AST is 1516, ALT is 546, currently on 2 L of oxygen. Patient is alert, answering questions, currently on Precedex drip. 01/09/2024 Patient is in MICU. Currently lying in the bed. Awake and alert but lethargic and drowsy. Currently on room air. Tolerating oral diet. Laboratory data showed WBC 7.4 hemoglobin 7.8 and platelets 124, sodium 1:30 p otassium 3.6 chloride 103 bicarb is 22 BUN 59 and creatinine 5.67 01/10/2024 Patient is in the MICU. Awake alert and oriented. Seems to be more awake today. On room air. No complaints of chest pain or shortness breath. Patient does have good oral input. No fever no chills. Laboratory data showed WBC 6.7 hemoglobin 8.0 and platelets 136, sodium 1:30 potassium 3.3 chloride 103 bicarb is 26 BUN 40 and creatinine trending down to 4.63 today. Calcium 7.1 and pro calcitonin was 1.46. Patient is on antibiotics ceftriaxone. ID, nephrology and pulmonary is on board. 01/11/2024 Patient is resting in the bed. On room air. Able to ambulate in the room. Patient is being transferred to ICU. Urine output has been improving. Last hemodialysis on 01/09/2024. Patient has been afebrile. Repeat blood cultures negative. Laboratory data showed no illicit 5.9 hemoglobin 9.2 and platelets 154 sodium 133 potassium 2.3 and chloride 103 and bicarb 23 BUN 53 and creatinine 6.39. Patient is on normal saline at 40 mL per hour. On antibiotics ceftriaxone. 01/12/2024 Patient is currently in the telemetry unit. Patient is lying in the bed. Awake alert and orient x 3. No complaints of chest pain. Denies any worsening shortness of breath. No cough or sputum function. Patient is being cannula antibiotics ceftriaxone. Currently on IV hydration with normal saline at 40 cc/h. Patient is tolerating dysphagia level 3 diet. Laboratory pressure WBC 7.0 hemoglobin 7.9 and platelets 211 Sodium 130 potassium 4.2 chloride 104 bicarb is 19 BUN 16 creatinine went up to 7.41 again today. 01/13. Patient seen and examined. Patient has swelling of upper extremities, states he is making urine. Patient is calm. Alert and oriented. 01/14. Patient seen and examined. Patient was sitting in the chair, stated he took a shower this morning feels much better compared to yesterday. Denies any fever or chills. Vital signs stable 01/15. Patient seen and examined. Lab work done in the morning showed WBC 12.36, hemoglobin 7, sodium is 140, potassium is 5.1, BUN is 50, creatinine 7. Vital signs are temperature 98.7, heart rate of 77, respiratory 18, blood pressure 167/101 01/16. Patient seen and examined. Complaining of diarrhea. Tolerating diet 01/17/2024 Patient is seen in follow-up today with nephrology following closely. Patient received about 1 hour of ultrafiltration today and dialysis catheter has been malfunctioning recommending to remove this catheter and monitor over the next few days with follow-up labs. Will follow-up with nephrology to discuss further with discharge planning if patient will require permanent catheter placement and continued outpatient dialysis. Patient reporting some abdominal pain with nausea and will add Zofran and continue with as needed medications. Patient has completed ceftriaxone and infectious diseases following closely. Social work following as well and working with guardian on discharge planning. Patient does have CIWA protocol although not actively withdrawing. Recommend as needed Ativan orally. Encouraged increase activity as tolerated. 01/18/2024 Patient is seen and evaluated in follow-up today. Patient had femoral catheter removed by vascular surgery yesterday and follow-up labs show a creatinine of 4.1 with a BUN of 23.9, sodium is 144 and potassium is 3.7. Magnesium was low yesterday and replaced and follow-up is 1.8 today. Patient also continues to be followed by infectious disease maintained off antibiotics being closely monitored. Patient to continue with increased activity as tolerated and encouraged oral intake renal diet. Patient will continue on half-normal saline and follow-up with repeat labs. 01/19/2024 Patient is seen and evaluated in follow-up with nephrology and infectious disease following. Patient is status post hemodialysis and catheter was removed. Awaiting further evaluation from nephrology over the next few days on kidney functions to determine if patient will require indwelling permacath placement for continued hemodialysis in the outpatient setting. Encouraged to increase activity as tolerated. Will follow-up with repeat labs. 01/20/2024 Patient is resting in the bed. Awake alert and oriented x 3. Currently on room air no chest pain or shortness of breath. Patient did have good urine output and his renal function improving. No nausea or vomiting. Patient is complaining of pain and requesting to increase pain medications. IV pain medications are off currently Laboratory test showed sodium 145 potassium 4.2 chloride 108 bicarb is 24.2 BUN 21.9 creatinine 3.1 and blood sugar 78 and magnesium 1.4 Patient was also started on iron IV iron supplementation. REVIEW OF SYSTEMS: CONSTITUTIONAL: No fever, no malaise,. CARDIOVASCULAR: No chest pain, no palpitations, no syncope. PULMONARY: No shortness of breath, no cough, GASTROINTESTINAL: Reports occasional nausea although none today, no vomiting, reports tolerating diet NEUROLOGICAL: No headaches, no weakness PHYSICAL EXAMINATION: GENERAL: The patient is alert and oriented x3, not in any acute distress. Well developed, well nourished. Appears older than stated age, obese HEENT: Pupils are round and equally reacting to light. EOMI. No scleral icterus. No conjunctival pallor. Normocephalic, atraumatic. No pharyngeal erythema. No thyromegaly. CARDIOVASCULAR: S1 and S2 present. No murmurs, rubs, or gallops. PULMONARY: Chest is clear to auscultation, no wheezing or crackles. ABDOMEN: Soft, nontender, nondistended, normoactive bowel sounds. No palpable organomegaly. MUSCULOSKELETAL: 1Plus edema of lower extremities bilaterally EXTREMITIES: No cyanosis, clubbing,. NEUROLOGICAL: Gross neurological examination did not reveal any focal deficits. SKIN: No rashes. Assessment: Acute metabolic encephalopathy. Improved. Acute kidney injury secondary to ATN due to infection and rhabdomyolysis. requiring hemodialysis. Started on 01/05/2024. Temporary cath removed on 01/17/2024 Gram-positive Bacteremia. Coagulase-negative staph. Repeat blood cultures negative. Sepsis Acute Rhabdomyolysis secondary to fall Hypothermia, resolved Hypernatremia. Resolved. Hypocalcemia secondary to acute kidney injury and rhabdomyolysis. Leukocytosis, resolved Elevated troponin level. Ratio of CPK and troponin suggest skeletal muscle injury Acute transaminitis Fall History of alcohol abuse Acute alcohol withdrawal symptoms History of depression Obesity with a BMI of 33.5 GI prophylaxis DVT prophylaxis Full code Plan: Patient maintained on gentle IV hydration with nephrology following closely. Temporary catheter removed 01/17/2024 and holding off on dialysis and will follow-up on repeat labs and monitor closely if patient will require outpatient dialysis. Creatinine slightly i improving daily will follow-up with repeat labs and patient is continued on half-normal saline per nephrology recommendations recommending labs in the a.m. patient admits to producing urine Case management/social work following working on discharge planning and awaiting further nephrology instruction if patient will require hemodialysis in the outpatient setting Patient was continued on CIWA protocol although not actively withdrawing and will continue with as needed oral Ativan Patient was continued on antibiotics with infectious disease following and cultures have remained negative and being monitored off antibiotic therapy Will follow-up with repeat labs and monitor kidney functions along with electrolytes Encouraged to increase activity as tolerated Due to multiple complex medical issues, prognosis is guarded Objective - Vital Signs Vital signs: Vital Signs Temp 97.7 F 01/20/24 14:22 Pulse 81 01/20/24 14:22 Resp 18 01/20/24 14:22 BP 139/83 01/20/24 14:22 Pulse Ox 98 01/20/24 14:22 FiO2 Intake & Output 01/20/24 01/20/24 01/21/24 06:59 18:59 06:59 Intake Total 1105 Output Total 4800 Balance -3695 Weight 86 kg Intake: Oral 1105 Output: Urine 4800 Other: # Voids 2 2 - Labs CBC & Chem 7: 01/21/24 06:16 01/21/24 06:16 Labs: Abnormal Lab Results - Last 24 Hours (Table) 01/20/24 Range/Units 06:33 Anion Gap 12.80 H (4.00-12.00) mmol/L Creatinine 3.1 H (0.6-1.5) mg/dL Est GFR (CKD-EPI) 26 L (>=60) BUN/Creatinine Ratio 7.06 L (12.00-20.00) Ratio Magnesium 1.4 L (1.5-2.4) mg/dL Microbiology - Last 24 Hours (Table) 01/15/24 12:18 Blood Culture - Final Blood
--- NOTE | 2024-01-22 02:15 | P.PN ---
Subjective Progress Note Date: 01/21/24 patient is a 38-year-old gentleman past medical significant for alcohol abuse, liver disease who presented to the ER for altered mental status. Patient has a history of alcohol abuse and has multiple admissions to this hospital for alcohol detox. Patient was brought in the ED by EMS after being found lying facedown in snow. There was no obvious sign of any trauma. Patient was unable to respond to any questions. EMS brought him immediately to the ER Initial lab work done in the ER showed WBC 22, hemoglobin 16.4, platelet count 274, sodium 152, potassium 5.1, BUN 38, creatinine 3.47, glucose 105, bilirubin 0.7, AST 1723, ALT 399, troponin 2.39 EKG done in the ER showed heart rate of 125, no ST segment elevation or depression seen, no T-wave inversions seen. Chest x-ray done in the ER showed no acute cardiopulmonary process CT head done showed no acute intracranial process CT cervical spine negative for any acute fracture or dislocation Patient admitted to internal medicine service. On my interview with patient, patient was much more responsive, kept on asking about getting soda and water. Stated that he has been laying on the ground for more than 15 hours. Patient is currently running a fever. Denies any chest pain or shortness of breath. Complaining of generalized body aches 01/05. Patient seen and examined. Blood work done this morning showed WBC 10.5, hemoglobin 9.8, platelet count 137, sodium 132, potassium 3.8, BUN 60, creatinine 4.02, calcium 6, CK greater than [id number]. 2D echo done showed LVEF of 50 to 55%, no mitral regurg, trace tricuspid regurg 01/06. Patient seen and examined. Currently in restraints. Currently getting dialysis. Complaining of pain in his tongue, apparently bit his tongue during the fall. 01/07. Patient seen and examined. Continues to be in ICU. Currently on Precedex and IV fluids. Patient currently off restraints, is alert to self. 01/08. Patient seen and examined.Blood work done this morning showed WBC 8.7, hemoglobin 9.3, sodium 137, potassium 4.7, BUN 66, creatinine 6.25, AST is 1516, ALT is 546, currently on 2 L of oxygen. Patient is alert, answering questions, currently on Precedex drip. 01/09/2024 Patient is in MICU. Currently lying in the bed. Awake and alert but lethargic and drowsy. Currently on room air. Tolerating oral diet. Laboratory data showed WBC 7.4 hemoglobin 7.8 and platelets 124, sodium 1:30 p otassium 3.6 chloride 103 bicarb is 22 BUN 59 and creatinine 5.67 01/10/2024 Patient is in the MICU. Awake alert and oriented. Seems to be more awake today. On room air. No complaints of chest pain or shortness breath. Patient does have good oral input. No fever no chills. Laboratory data showed WBC 6.7 hemoglobin 8.0 and platelets 136, sodium 1:30 potassium 3.3 chloride 103 bicarb is 26 BUN 40 and creatinine trending down to 4.63 today. Calcium 7.1 and pro calcitonin was 1.46. Patient is on antibiotics ceftriaxone. ID, nephrology and pulmonary is on board. 01/11/2024 Patient is resting in the bed. On room air. Able to ambulate in the room. Patient is being transferred to ICU. Urine output has been improving. Last hemodialysis on 01/09/2024. Patient has been afebrile. Repeat blood cultures negative. Laboratory data showed no illicit 5.9 hemoglobin 9.2 and platelets 154 sodium 133 potassium 2.3 and chloride 103 and bicarb 23 BUN 53 and creatinine 6.39. Patient is on normal saline at 40 mL per hour. On antibiotics ceftriaxone. 01/12/2024 Patient is currently in the telemetry unit. Patient is lying in the bed. Awake alert and orient x 3. No complaints of chest pain. Denies any worsening shortness of breath. No cough or sputum function. Patient is being cannula antibiotics ceftriaxone. Currently on IV hydration with normal saline at 40 cc/h. Patient is tolerating dysphagia level 3 diet. Laboratory pressure WBC 7.0 hemoglobin 7.9 and platelets 211 Sodium 130 potassium 4.2 chloride 104 bicarb is 19 BUN 16 creatinine went up to 7.41 again today. 01/13. Patient seen and examined. Patient has swelling of upper extremities, states he is making urine. Patient is calm. Alert and oriented. 01/14. Patient seen and examined. Patient was sitting in the chair, stated he took a shower this morning feels much better compared to yesterday. Denies any fever or chills. Vital signs stable 01/15. Patient seen and examined. Lab work done in the morning showed WBC 12.36, hemoglobin 7, sodium is 140, potassium is 5.1, BUN is 50, creatinine 7. Vital signs are temperature 98.7, heart rate of 77, respiratory 18, blood pressure 167/101 01/16. Patient seen and examined. Complaining of diarrhea. Tolerating diet 01/17/2024 Patient is seen in follow-up today with nephrology following closely. Patient received about 1 hour of ultrafiltration today and dialysis catheter has been malfunctioning recommending to remove this catheter and monitor over the next few days with follow-up labs. Will follow-up with nephrology to discuss further with discharge planning if patient will require permanent catheter placement and continued outpatient dialysis. Patient reporting some abdominal pain with nausea and will add Zofran and continue with as needed medications. Patient has completed ceftriaxone and infectious diseases following closely. Social work following as well and working with guardian on discharge planning. Patient does have CIWA protocol although not actively withdrawing. Recommend as needed Ativan orally. Encouraged increase activity as tolerated. 01/18/2024 Patient is seen and evaluated in follow-up today. Patient had femoral catheter removed by vascular surgery yesterday and follow-up labs show a creatinine of 4.1 with a BUN of 23.9, sodium is 144 and potassium is 3.7. Magnesium was low yesterday and replaced and follow-up is 1.8 today. Patient also continues to be followed by infectious disease maintained off antibiotics being closely monitored. Patient to continue with increased activity as tolerated and encouraged oral intake renal diet. Patient will continue on half-normal saline and follow-up with repeat labs. 01/19/2024 Patient is seen and evaluated in follow-up with nephrology and infectious disease following. Patient is status post hemodialysis and catheter was removed. Awaiting further evaluation from nephrology over the next few days on kidney functions to determine if patient will require indwelling permacath placement for continued hemodialysis in the outpatient setting. Encouraged to increase activity as tolerated. Will follow-up with repeat labs. 01/20/2024 Patient is resting in the bed. Awake alert and oriented x 3. Currently on room air no chest pain or shortness of breath. Patient did have good urine output and his renal function improving. No nausea or vomiting. Patient is complaining of pain and requesting to increase pain medications. IV pain medications are off currently Laboratory test showed sodium 145 potassium 4.2 chloride 108 bicarb is 24.2 BUN 21.9 creatinine 3.1 and blood sugar 78 and magnesium 1.4 Patient was also started on iron IV iron supplementation. 01/21/2024 Patient is resting in the bed. Awake alert Oriented x 3. On room air. No complaints of chest pain or shortness of breath. Renal function continues to improve with creatinine 2.9. Other laboratory data reviewed. Patient is being currently on IV iron supplementation. Currently on IV hydration with half-normal saline at 50 cc/h. Patient is also tolerating oral diet. Pain is fairly controlled. REVIEW OF SYSTEMS: CONSTITUTIONAL: No fever, no malaise,. CARDIOVASCULAR: No chest pain, no palpitations, no syncope. PULMONARY: No shortness of breath, no cough, GASTROINTESTINAL: Reports occasional nausea although none today, no vomiting, reports tolerating diet NEUROLOGICAL: No headaches, no weakness PHYSICAL EXAMINATION: GENERAL: The patient is alert and oriented x3, not in any acute distress. Well developed, well nourished. Appears older than stated age, obese HEENT: Pupils are round and equally reacting to light. EOMI. No scleral icterus. No conjunctival pallor. Normocephalic, atraumatic. No pharyngeal erythema. No thyromegaly. CARDIOVASCULAR: S1 and S2 present. No murmurs, rubs, or gallops. PULMONARY: Chest is clear to auscultation, no wheezing or crackles. ABDOMEN: Soft, nontender, nondistended, normoactive bowel sounds. No palpable organomegaly. MUSCULOSKELETAL: 1Plus edema of lower extremities bilaterally EXTREMITIES: No cyanosis, clubbing,. NEUROLOGICAL: Gross neurological examination did not reveal any focal deficits. SKIN: No rashes. Assessment: Acute metabolic encephalopathy. Improved. Acute kidney injury secondary to ATN due to infection and rhabdomyolysis. requiring hemodialysis. Started on 01/05/2024. Temporary cath removed on 01/17/2024 Gram-positive Bacteremia. Coagulase-negative staph. Repeat blood cultures negative. Sepsis Acute Rhabdomyolysis secondary to fall Hypothermia, resolved Hypernatremia. Resolved. Hypocalcemia secondary to acute kidney injury and rhabdomyolysis. Leukocytosis, resolved Elevated troponin level. Ratio of CPK and troponin suggest skeletal muscle injury Acute transaminitis Fall History of alcohol abuse Acute alcohol withdrawal symptoms History of depression Obesity with a BMI of 33.5 GI prophylaxis DVT prophylaxis heparin subcu. Full code Plan: Patient maintained on gentle IV hydration with nephrology following closely. Temporary catheter removed 01/17/2024 and holding off on dialysis and will follow-up on repeat labs and monitor closely if patient will require outpatient dialysis. Creatinine slightly i improving daily will follow-up with repeat labs and patient is continued on half-normal saline per nephrology recommendations recommending labs in the a.m. patient admits to producing urine Case management/social work following working on discharge planning and awaiting further nephrology instruction if patient will require hemodialysis in the outpatient setting Patient was continued on CIWA protocol although not actively withdrawing and will continue with as needed oral Ativan Patient was continued on antibiotics with infectious disease following and cultures have remained negative and being monitored off antibiotic therapy Will follow-up with repeat labs and monitor kidney functions along with electrolytes Encouraged to increase activity as tolerated Due to multiple complex medical issues, prognosis is guarded Objective - Vital Signs Vital signs: Vital Signs Temp 98.1 F 01/21/24 07:35 Pulse 78 01/21/24 08:05 Resp 17 01/21/24 08:05 BP 141/84 01/21/24 07:35 Pulse Ox 97 01/21/24 07:35 FiO2 Intake & Output 01/20/24 01/21/24 01/21/24 18:59 06:59 18:59 Output Total 400 Balance -400 Weight 82.5 kg Output: Urine 400 Other: Voiding Method Toilet # Voids 2 - Labs CBC & Chem 7: 01/21/24 06:16 01/21/24 06:16 Labs: Abnormal Lab Results - Last 24 Hours (Table) 01/21/24 01/21/24 Range/Units 06:16 06:16 RBC 3.00 L (4.40-5.60) X 10*6/uL Hgb 8.4 L (13.0-17.0) g/dL Hct 26.7 L (39.6-50.0) % MCHC 31.5 L (32.0-37.0) g/dL RDW 17.0 H (11.5-14.5) % Basophils # 0.11 H (0.00-0.10) X 10*3/uL Anion Gap 12.20 H (4.00-12.00) mmol/L Creatinine 2.9 H (0.6-1.5) mg/dL Est GFR (CKD-EPI) 28 L (>=60) BUN/Creatinine Ratio 7.86 L (12.00-20.00) Ratio C-Reactive Protein 2.70 H (0.00-0.80) mg/dL Microbiology - Last 24 Hours (Table) 01/15/24 12:18 Blood Culture - Final Blood
[2024-01-22 07:56] VITALS: BP 126/68; PULSE 67; RESP 16; TEMP 98.3
--- NOTE | 2024-01-22 12:07 | P.PN ---
Subjective Patient is seen for follow-up for acute kidney injury. Status post temporary hemodialysis for severe oliguric ATN. Renal function has been improving. Last hemodialysis was 01/17/2024 Dialysis catheter has been removed. No significant complaints today. Serum creatinine was 2.9 yesterday. Objective - Vital Signs Vital signs: Vital Signs Temp 98.3 F 01/22/24 07:48 Pulse 67 01/22/24 07:48 Resp 16 01/22/24 07:48 BP 126/68 01/22/24 07:48 Pulse Ox 96 01/22/24 08:38 FiO2 Intake & Output 01/21/24 01/22/24 01/22/24 18:59 06:59 18:59 Intake Total 200 Balance 200 Weight 81 kg Intake: Oral 200 Other: Voiding Method Toilet Toilet # Voids 2 3 - Exam Patient is awake, comfortable, no acute distress Patient appears euvolemic Abdomen is soft nontender Examination of lower extremity shows no significant edema [employer] exam grossly intact - Labs CBC & Chem 7: 01/21/24 06:16 01/21/24 06:16 Assessment and Plan Assessment: 1. Acute kidney injury secondary to ATN secondary to severe sepsis and rh abdomyolysis. Baseline creatinine 0.5-0.6 and >8 this admission. Started on hemodialysis January 05, 2024. No hydronephrosis noted on abdominal ultrasound. Creatinine down to 3.1 with good urine output. Last hemodialysis January 17, 2024 for 1 hour. 2. Rhabdomyolysis secondary to fall/immobility. CK levels improved. 3. Severe sepsis secondary to staph bacteremia. s/p antibiotics. 4. Metabolic acidosis secondary to acute kidney injury. Improved from admission. 5. Hyponatremia secondary to acute kidney injury. Improved. 6. Hypocalcemia secondary to acute kidney injury and rhabdomyolysis. Improved. 7. Benign hypertension. 8. Hyperphosphatemia secondary to acute kidney injury. Phosphorus level 5.3 dated January 17, 2024. On Renvela with meals. 9. Hypomagnesemia from poor intake. Replaced. Better. 10. Anemia. Iron deficiency noted. Status post IV iron Plan: Continue to avoid nephrotoxic agents. DC IV fluids Patient is stable for discharge from nephrology standpoint. Encourage increased fluid intake.
--- NOTE | 2024-01-22 12:41 | P.PN ---
Subjective Progress Note Date: 01/22/24 The patient is seen today January 22, 2024 in follow-up on the regular medical floor. He is awake and alert in no acute distress. He is maintaining good O2 saturations in the 90s on room air. He has been afebrile. Hemodynamically stable. Most recent recent creatinine 2.9. His last hemodialysis treatment was on January 17, 2024. Dialysis catheter has been removed. No plans for further hemodialysis at this point. Follow-up blood cultures revealed no growth. He remains on heparin for DVT prophylaxis. NicoDerm patch in place. Discharge planning is in place. Objective - Vital Signs Vital signs: Vital Signs Temp 98.3 F 01/22/24 07:48 Pulse 67 01/22/24 07:48 Resp 16 01/22/24 07:48 BP 126/68 01/22/24 07:48 Pulse Ox 96 01/22/24 08:38 FiO2 Intake & Output 01/21/24 01/22/24 01/22/24 18:59 06:59 18:59 Intake Total 200 Balance 200 Weight 81 kg Intake: Oral 200 Other: Voiding Method Toilet Toilet # Voids 2 3 - Exam GENERAL EXAM: Alert, cooperative 38-year-old male, on room air, in no apparent distress. HEAD: Normocephalic. EYES: Normal reaction of pupils, equal size. NOSE: Clear with pink turbinates. THROAT: No erythema or exudates. NECK: No masses, no JVD. CHEST: No chest wall deformity. LUNGS: Equal air entry with no crackles, wheeze, rhonchi or dullness. CVS: S1 and S2 normal with no audible murmur, regular rhythm. ABDOMEN: No hepatosplenomegaly, normal bowel sounds, no guarding or rigidity. SPINE: No scoliosis or deformity SKIN: No rashes CENTRAL NERVOUS SYSTEM: No focal deficits, tone is normal in all 4 extremities. EXTREMITIES: There is no peripheral edema. No clubbing, no cyanosis. Peripheral pulses are intact. - Labs CBC & Chem 7: 01/21/24 06:16 01/21/24 06:16 Assessment and Plan Assessment: Acute alcohol withdrawal syndrome, currently inactive and stable without any ongoing signs of alcohol withdrawal. Mental status is stable for now Acute metabolic encephalopathy, improved Possible bacteremia secondary to coagulase-negative staphylococci likely contaminant, follow-up blood cultures revealed no growth Hypothermia, resolved Acute transaminitis Acute RSV infection Acute kidney injury secondary to rhabdomyolysis requiring hemodialysis, last treatment was January 17, 2024, creatinine improved and down to 2.9 History of alcoholism History of hepatitis C History of gastroesophageal reflux disease History of IV drug abuse History of pancreatitis History of bipolar disorder and depression Plan: The patient was seen and evaluated Medications reviewed Currently stable and on room air Increase his activity as tolerated Kidney function has improved No plans for further hemodialysis Cleared for discharge from the pulmonary standpoint Social work has been following regarding placement This patient was seen independently by the pulmonary nurse practitioner addressing pulmonary issues I have personally seen and examined the patient, performed the documentation and the assessment and plan as written. Number of minutes spent on the visit: 22.
[2024-01-22 13:14] LABS: Anisocytosis Slight; Basophils # (A) 0.1 k/uL (0-0.2); Basophils % (A) 2 %; Eosinophils # (A) 0.3 k/uL (0-0.7); Eosinophils % (A) 4 %; HCT 29.2 % (39.0-53.0); HGB 9.3 gm/dL (13.0-17.5); Hypochromasia Slight; Lymphocytes # (A) 1.7 k/uL (1.0-4.8); Lymphocytes % (A) 27 %; Monocytes # (A) 0.4 k/uL (0-1.0); Monocytes % (A) 6 %; Neutrophils # (A) 3.6 k/uL (1.3-7.7); Neutrophils % (A) 59 %; Platelet Count 354 k/uL (150-450); RBC 3.21 m/uL (4.30-5.90); RDW 16.1 % (11.5-15.5); WBC 6.2 k/uL (3.8-10.6)
[2024-01-22 13:24] LABS: African American GFR (CKD) 36 (>60 ml/min/1.73 sqM); Anion Gap 11 mmol/L; Blood Urea Nitrogen 31 mg/dL (9-20); Calcium 10.3 mg/dL (8.4-10.2); Carbon Dioxide 20 mmol/L (22-30); Chloride 110 mmol/L (98-107); Glucose 128 mg/dL (74-99); Magnesium 1.5 mg/dL (1.6-2.3); Non-African American GFR(CKD) 31 (>60 ml/min/1.73 sqM); Potassium 4.4 mmol/L (3.5-5.1); Sodium 141 mmol/L (137-145)
[2024-01-22 13:25] LABS: MCV 90.8 fL (80.0-100.0)
[2024-01-22] MEDS: HALOPERIDOL DECANOATE 100 MG/ML 1 ML VIAL IM SCH (15:00)
--- NOTE | 2024-01-23 10:14 | P.DS ---
Providers Date of admission: 01/04/24 14:13 Expected date of discharge: 01/22/24 Attending physician: Yuri Dee MD Consults: 01/04/24 14:06 Consult Physician Routine Consulting Provider: Bob Edouard Consult Reason/Comments: Sepsis Do you want consulting provider notified?: Yes 01/04/24 14:13 Consult Physician Routine Consulting Provider: [facility] Consult Reason/Comments: NSTEMI Do you want consulting provider notified?: Yes Consult Physician Routine Consulting Provider: Hayden Vasquez Consult Reason/Comments: Acute renal failure Do you want consulting provider notified?: Yes 01/05/24 02:52 Consult Physician Routine Consulting Provider: Leila Morin Consult Reason/Comments: ICU management Do you want consulting provider notified?: Already Contacted 01/05/24 07:09 Consult Physician Stat Consulting Provider: Percy Love Consult Reason/Comments: dialysis cath Do you want consulting provider notified?: Yes 01/17/24 11:24 Consult Physician Routine Consulting Provider: Percy Love Consult Reason/Comments: Pedro wants femoral dialysis cath removed today 01/17 Do you want consulting provider notified?: Yes Primary care physician: Stated None Hospital Course: Final diagnosis Acute metabolic encephalopathy. Improved. Acute kidney injury secondary to ATN due to infection and rhabdomyolysis. requiring hemodialysis. Started on 01/05/2024. Temporary cath removed on 01/17/2024 Gram-positive Bacteremia. Coagulase-negative staph. Repeat blood cultures negative. Sepsis Acute Rhabdomyolysis secondary to fall Hypothermia, resolved Hypernatremia. Resolved. Hypocalcemia secondary to acute kidney injury and rhabdomyolysis. Leukocytosis, resolved Elevated troponin level. Ratio of CPK and troponin suggest skeletal muscle i njury Acute transaminitis Fall History of alcohol abuse Acute alcohol withdrawal symptoms History of depression Obesity with a BMI of 33.5 GI prophylaxis DVT prophylaxis heparin subcu. Full code Discharge disposition Patient is being discharged in a stable condition with guarded prognosis to home. Patient will follow-up with Dr. Amaya in the outpatient setting upon discharge. Patient is to continue with close outpatient follow-up with nephrology as scheduled. Repeat labs ordered for 2 to 3 days to monitor kidney functions and electrolytes. Total time taken is greater than 35 minutes. Hospital course This is a 38year-old male who was recently admitted with EtOH and altered mental status found down for hours with acute rhabdomyolysis secondary to a fall with intoxication. Patient was in the ICU for quite some time showing worsening kidney functions requiring emergent dialysis. Patient kidney functions improved and urine output significantly improved not requiring further dialysis at this time. Creatinine trending down and recommend follow-up labs in the outpatient setting. Patient also with multiple electrolyte abnormalities due to intoxication and unknown downtime. Patient with features of sepsis and positive bacteremia maintained on antibiotics with infectious disease following and received adequate amount of antibiotics and will not require discharge antibiot ics. Patient has had prolonged hospitalization and is up and walking asking when he can go. Patient does follow with [facility] in the outpatient setting as well as has a guardian who is aware of discharge planning. Currently working on an AFC. Patient has been cleared by consultations. Please refer to other consultation notes for further HPI. Currently no reports of chest pain, shortness of breath, or palpitations. Patient is afebrile. No reports of nausea or vomiting and patient is tolerating diet. Patient will be discharged home today. Guarded prognosis and high risk for readmissions as patient has had multiple hospitalizations and ER visits secondary to noncompliance and continued alcohol and drug use. Physical exam: Gen: This is a 38-year-old male who is awake, alert and oriented x 2-3, baseline, well-developed, well-nourished, appears older than stated age HEENT: Head is atraumatic, normocephalic. Pupils equal, round. Sclerae is anicteric. NECK: Supple. No JVD. No lymphadenopathy. No thyromegaly. LUNGS: Clear to auscultation. No wheezes or rhonchi. No intercostal retractions. HEART: S1, S2 are muffled ABDOMEN: Soft. Bowel sounds are present. No masses. No tenderness. EXTREMITIES: No pedal edema. No calf tenderness. NEUROLOGICAL: Patient is awake, alert and oriented x2-3. Cranial nerves 2 through 12 are grossly intact. Please refer to medication reconciliation sheet for a list of medications. The impression and plan of care has been dictated by Marlena Roque, Nurse Practitioner as directed. Dr. Delroy MD I have performed a history and examination and MDM of this patient, discussed the same with the dictator, and agree with the dictator's assessment and plan as written ,documented as a scribe. Based on total visit time, I have performed more than 50% of the visit. Patient Condition at Discharge: Fair Plan - Discharge Summary New Discharge Prescriptions: New Aspirin 81 mg PO DAILY #30 tab cloNIDine 0.2 MG/24HR PATCH [Catapres-TTS] 1 patch TRANSDERM Q7D 30 Days #3 patch Magnesium Oxide [Mag-Ox] 400 mg PO BID #60 tab Multivitamins, Thera [Multivitamin (formulary)] 1 each PO DAILY #30 tab amLODIPine [Norvasc] 5 mg PO BID #60 tab Sevelamer [Renvela] 800 mg PO TID-W/MEALS #90 tab hydrALAZINE HCL [Apresoline] 50 mg PO TID 30 Days #90 tab carvediloL [Coreg] 6.25 mg PO BID-W/MEALS #60 tab Folic Acid 1 mg PO DAILY #30 tab QUEtiapine [SEROquel] 100 mg PO BID 30 Days #60 tab Continue Thiamine [Vitamin B-1] 100 mg PO DAILY 30 Days #30 tab Haloperidol Decanoate [Haldol D] 200 mg IM Q14D 1 Days #1 each buPROPion XL [Wellbutrin XL] 150 mg PO DAILY 30 Days #30 tab Discontinued busPIRone HCl [Buspar] 7.5 mg PO BID 30 Days #60 tab QUEtiapine [SEROquel] 25 mg PO BID 30 Days #60 tab Discharge Medication List Haloperidol Decanoate [Haldol D] 200 mg IM Q14D 1 Days #1 each 10/20/23 [Rx] Thiamine [Vitamin B-1] 100 mg PO DAILY 30 Days #30 tab 12/11/23 [Rx] buPROPion XL [Wellbutrin XL] 150 mg PO DAILY 30 Days #30 tab 12/11/23 [Rx] Aspirin 81 mg PO DAILY #30 tab 01/22/24 [Rx] Folic Acid 1 mg PO DAILY #30 tab 01/22/24 [Rx] Magnesium Oxide [Mag-Ox] 400 mg PO BID #60 tab 01/22/24 [Rx] Multivitamins, Thera [Multivitamin (formulary)] 1 each PO DAILY #30 tab 01/22/24 [Rx] QUEtiapine [SEROquel] 100 mg PO BID 30 Days #60 tab 01/22/24 [Rx] Sevelamer [Renvela] 800 mg PO TID-W/MEALS #90 tab 01/22/24 [Rx] amLODIPine [Norvasc] 5 mg PO BID #60 tab 01/22/24 [Rx] carvediloL [Coreg] 6.25 mg PO BID-W/MEALS #60 tab 01/22/24 [Rx] cloNIDine 0.2 MG/24HR PATCH [Catapres-TTS] 1 patch TRANSDERM Q7D 30 Days #3 patch 01/22/24 [Rx] hydrALAZINE HCL [Apresoline] 50 mg PO TID 30 Days #90 tab 01/22/24 [Rx] Follow up Appointment(s)/Referral(s): Kristie Champion MD [STAFF PHYSICIAN] - 1 Week (Office is closed at time of discharge. Please call for follow-up appointment.) Elisa Amaya MD [STAFF PHYSICIAN] - 1 Week (Office is closed at time of discharge. Please call for follow-up appointment.) [facility] [NON-STAFF] - 1 Week Ambulatory/Diagnostic Orders: Basic Metabolic Panel [LAB.AMB] Time Frame: 3 Days, Location: None Selected Patient Instructions/Handouts: Seizure/Epilepsy Discharge Instructions & Follow-Up, Alcohol Withdrawal (ED) Discharge Disposition: HOME SELF-CARE
--- NOTE | 2024-01-26 15:50 | P.PN ---
Subjective Progress Note Date: 01/22/24 Principal diagnosis: Reason for follow-up is fever and a positive blood culture Patient is a 38-year-old male with a past medical history of GERD for hypertension hepatitis C pancreatitis reflux history of alcoholism patient was brought into the ER by EMS after apparently the patient was noticed to be facedown in the snow when the EMS got him up he was unable to speak patient was hypothermic and subsequently brought into the ER for further evaluation, on arrival to the ER the patient did have a fever did have elevated white count chest x-ray UA was negative abdominal soft LP was done last night which came back negative as well. On today's evaluation that is 01/22/2024, the patient remains to be afebrile, the patient is breathing comfortably on room air patient denies having any chest pain or cough, the patient denies having any abdominal pain no vomiting or any diarrhea has been reported by the nursing staff. Patient is feeling better wants to go home Patient white count is 6.2, creatinine is 2.53, blood culture repeat negative Objective - Vital Signs Vital signs: Vital Signs Temp 98.3 F 01/22/24 07:48 Pulse 67 01/22/24 07:48 Resp 16 01/22/24 07:48 BP 126/68 01/22/24 07:48 Pulse Ox 96 01/22/24 08:38 FiO2 Intake & Output 01/21/24 01/22/24 01/22/24 18:59 06:59 18:59 Intake Total 200 Balance 200 Weight 81 kg Intake: Oral 200 Other: Voiding Method Toilet Toilet # Voids 2 3 - Exam GENERAL DESCRIPTION: Middle-age male lying in bed in no distress RESPIRATORY SYSTEM: Unlabored breathing , decreased breath sounds at bases HEART: S1 S2 regular rate and rhythm , ABDOMEN: Soft , no tenderness EXTREMITIES: No edema feet - Labs CBC & Chem 7: 01/22/24 13:00 01/22/24 13:00 Assessment and Plan (1) Fever with leukocytosis and leukocyte count greater than or equal to 20,000 Status: Acute Code(s): D72.829 - ELEVATED WHITE BLOOD CELL COUNT, UNSPECIFIED SNOMED Code(s): 775738576 (2) Positive blood culture Status: Acute Code(s): R78.81 - BACTEREMIA SNOMED Code(s): 890837222 (3) Leukocytosis Status: Acute Code(s): D72.829 - ELEVATED WHITE BLOOD CELL COUNT, UNSPECIFIED SNOMED Code(s): 635416811 Plan: 1patient presented hospital with episode of unresponsiveness by the EMS patient did have features of sepsis running a fever did have elevated white count, initial workup including a chest x-ray and UA has been negative the patient abdominal was soft on clinical examination and there was no evidence of any cellulitis 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 however the patient did have LP completed last night by ER physician and is negative 2-patient with a positive blood culture with coagulase-negative staph with concern for possible pathogen vs contamination repeat blood culture negative, daptomycin was discontinued as of 01/11/2024 3-patient completed his course of IV Rocephin, subsequently patient did have elevated white count requiring further workup however patient remains to be a febrile white count normal repeat cultures negative no need for any antibiotic on discharge Dictation was produced using [employer] dictation software. please excuse any grammatical, word or spelling errors. Time with Patient: Less than 30
== END 2024-01-22 16:55 | disposition home or self-care (01) | DRG 720 ==
LOC: EC 11:56 → 3SCARD 14:13 → 2SICU 01-05 03:00 → 4SSUR 01-12 04:44
PROVIDERS: ADMIT Internal Medicine; ATTEND Internal Medicine
PROC: 009U3ZX Drainage of Spinal Canal, Percutaneous Approach, Diagnostic (ICD-10-PCS; principal; 2024-01-04)
PROC: 06HY33Z Insertion of Infusion Device into Lower Vein, Percutaneous Approach (ICD-10-PCS; 2024-01-05)
PROC: 5A1D70Z Performance of Urinary Filtration, Intermittent, Less than 6 Hours Per Day (ICD-10-PCS; 2024-01-05)
PROC: 05HB33Z Insertion of Infusion Device into Right Basilic Vein, Percutaneous Approach (ICD-10-PCS; 2024-01-10)
PROC: 06PYX3Z Removal of Infusion Device from Lower Vein, External Approach (ICD-10-PCS; 2024-01-17)
DX: A41.2 Sepsis due to unspecified staphylococcus (principal); N17.0 Acute kidney failure with tubular necrosis; I21.4 Non-ST elevation (NSTEMI) myocardial infarction; G93.41 Metabolic encephalopathy; D68.9 Coagulation defect, unspecified; E83.51 Hypocalcemia; E83.39 Other disorders of phosphorus metabolism; B97.4 Respiratory syncytial virus as the cause of diseases classified elsewhere; K70.9 Alcoholic liver disease, unspecified; F10.239 Alcohol dependence with withdrawal, unspecified; F20.9 Schizophrenia, unspecified; F31.9 Bipolar disorder, unspecified; F15.11 Other stimulant abuse, in remission; F11.11 Opioid abuse, in remission; T79.6XXA Traumatic ischemia of muscle, initial encounter; R65.20 Severe sepsis without septic shock; Z99.2 Dependence on renal dialysis; I10 Essential (primary) hypertension; B19.20 Unspecified viral hepatitis C without hepatic coma; F12.11 Cannabis abuse, in remission; E66.9 Obesity, unspecified; Z68.33 Body mass index [BMI] 33.0-33.9, adult; E87.1 Hypo-osmolality and hyponatremia; E87.20 Acidosis, unspecified; T68.XXXA Hypothermia, initial encounter; E87.0 Hyperosmolality and hypernatremia; L03.116 Cellulitis of left lower limb; J22 Unspecified acute lower respiratory infection; E86.0 Dehydration; F41.9 Anxiety disorder, unspecified; E83.42 Hypomagnesemia; K21.9 Gastro-esophageal reflux disease without esophagitis; L98.9 Disorder of the skin and subcutaneous tissue, unspecified; G56.03 Carpal tunnel syndrome, bilateral upper limbs; R31.9 Hematuria, unspecified; Y90.0 Blood alcohol level of less than 20 mg/100 ml; D64.9 Anemia, unspecified; F17.210 Nicotine dependence, cigarettes, uncomplicated; Z71.6 Tobacco abuse counseling; Z91.199 Patient's noncompliance with other medical treatment and regimen due to unspecified reason; Z79.899 Other long term (current) drug therapy; Z59.01 Sheltered homelessness; Z59.6 Low income; Z78.1 Physical restraint status; W19.XXXA Unspecified fall, initial encounter
CPT/HCPCS: 36410; 36415; 70450; 71045; 72125; 76700; 76857; 76937; 80048; 80053; 80061; 80306; 80320; 81001; 82140; 82550; 82570; 82728; 82945; 83540; 83550; 83605; 83690; 83735; 83930; 83935; 84100; 84132; 84145; 84157; 84450; 84460; 84484; 85025; 85027; 85610; 85652; 85730; 86140; 86706; 87040; 87070; 87205; 87340; 87496; 87498; 87529; 87636; 87798; 89050; 90935; 93005; 93306; 94640; 94760; 96361; 96365; 96366; 96368; 96372; 96375; 99291

== ENCOUNTER 2024-02-01 13:38 | Observation (INO) | payer OTHER ==
[2024-02-01 14:41] LABS: Basophils # (A) 0.1 k/uL (0-0.2); Basophils % (A) 2 %; Eosinophils # (A) 0.4 k/uL (0-0.7); Eosinophils % (A) 5 %; HGB 11.6 gm/dL (13.0-17.5); Lymphocytes # (A) 2.6 k/uL (1.0-4.8); Lymphocytes % (A) 30 %; MCH 29.2 pg (25.0-35.0); MCHC 33.1 g/dL (31.0-37.0); MCV 88.4 fL (80.0-100.0); Mean Platelet Volume 7.9; Monocytes # (A) 0.3 k/uL (0-1.0); Monocytes % (A) 3 %; Neutrophils # (A) 5.2 k/uL (1.3-7.7); Neutrophils % (A) 59 %; Platelet Count 392 k/uL (150-450); RBC 3.95 m/uL (4.30-5.90); RDW 15.4 % (11.5-15.5); WBC 8.8 k/uL (3.8-10.6)
[2024-02-01 14:47] LABS: Appearance,Urine Clear (Clear); Bilirubin,Urine Negative (Negative); Blood,Urine Negative (Negative); Color,Urine Colorless; Glucose,Urine (UA) Negative (Negative); Ketones,Urine Negative (Negative); Leukocyte Esterase,Urine Negative (Negative); Nitrite,Urine Negative (Negative); PH, Urine 6.5 (5.0-8.0); Protein,Urine Negative (Negative); Specific Gravity,Urine 1.002 (1.001-1.035); Urobilinogen,Urine <2.0 mg/dL (<2.0)
[2024-02-01 14:59] LABS: ALT 15 U/L (4-49); AST 29 U/L (17-59); African American GFR (CKD) >90 (>60 ml/min/1.73 sqM); Albumin 4.3 g/dL (3.5-5.0); Alkaline Phosphatase 65 U/L (38-126); Anion Gap 12 mmol/L; Blood Urea Nitrogen 11 mg/dL (9-20); Calcium 9.7 mg/dL (8.4-10.2); Carbon Dioxide 23 mmol/L (22-30); Chloride 107 mmol/L (98-107); Creatine Kinase 115 U/L (55-170); Glucose 107 mg/dL (74-99); Non-African American GFR(CKD) >90 (>60 ml/min/1.73 sqM); Potassium 4.1 mmol/L (3.5-5.1); Sodium 142 mmol/L (137-145); Total Bilirubin 0.2 mg/dL (0.2-1.3); Total Protein 7.9 g/dL (6.3-8.2)
[2024-02-01 15:04] LABS: Amphetamine Screen,Urine Not Detected (NotDetected); Barbiturate Screen,Urine Not Detected (NotDetected); Benzodiazepines Screen,Urine Not Detected (NotDetected); Cocaine Screen,Urine Not Detected (NotDetected); Methadone Screen, Urine Not Detected (NotDetected); Opiate Screen,Urine Not Detected (NotDetected); Oxycodone Screen, Urine Not Detected (NotDetected); Phencyclidine Screen,Urine Not Detected (NotDetected); Tricyclic Antidepressant,Urine Not Detected (NotDetected); Urn Cannabinoid Scrn Detected (NotDetected)
--- NOTE | 2024-02-01 15:07 | ED ---
General Adult HPI <Ranulfo Seaman - Last Filed: 02/01/24 16:23> - General Source: patient Mode of arrival: EMS Limitations: altered mental status <Emily Syed - Last Filed: 02/07/24 15:31> - General Chief complaint: Altered Mental Status Stated complaint: ETOH Time Seen by Provider: 02/01/24 13:50 - History of Present Illness Initial comments: 38-year-old male with past medical history of alcohol abuse, polysubstance abuse who presents emergency department with altered mental status. It was reported that the patient walked into the [employer] [facility] [employer] and sat down. He then promptly passed out. He does admit to drinking alcohol today as he does drink daily. There is no report of any trauma. Patient does not show any external signs of trauma. Remainder of HPI is limited because of patient's current state (Emily Syed Sary) - Related Data Previous Rx's Medication Instructions Recorded Thiamine [Vitamin B-1] 100 mg PO DAILY 30 Days #30 tab 12/11/23 Aspirin 81 mg PO DAILY #30 tab 01/22/24 Folic Acid 1 mg PO DAILY #30 tab 01/22/24 Magnesium Oxide [Mag-Ox] 400 mg PO BID #60 tab 01/22/24 Multivitamins, Thera [Multivitamin 1 each PO DAILY #30 tab 01/22/24 (formulary)] QUEtiapine [SEROquel] 100 mg PO BID 30 Days #60 tab 01/22/24 Sevelamer [Renvela] 800 mg PO TID-W/MEALS #90 tab 01/22/24 amLODIPine [Norvasc] 5 mg PO BID #60 tab 01/22/24 carvediloL [Coreg] 6.25 mg PO BID-W/MEALS #60 tab 01/22/24 cloNIDine 0.2 MG/24HR PATCH 1 patch TRANSDERM Q7D 30 Days #3 01/22/24 [Catapres-TTS] patch hydrALAZINE HCL [Apresoline] 50 mg PO TID 30 Days #90 tab 01/22/24 buPROPion XL [Wellbutrin XL] 150 mg PO DAILY 30 Days #30 tab 02/02/24 Allergies Allergy/AdvReac Type Severity Reaction Status Date / Time flea Allergy Rash/Hives Uncoded 03/14/24 16:54 Review of Systems ROS Other: All systems not noted in ROS Statement are negative. <Ranulfo Seaman - Last Filed: 02/01/24 16:23> ROS Other: All systems not noted in ROS Statement are negative. <Emily Syed - Last Filed: 02/07/24 15:31> ROS Statement: Those systems with pertinent positive or pertinent negative responses have been documented in the HPI. Past Medical History Past Medical History: GERD/Reflux, Hypertension, Liver Disease, Skin Disorder Additional Past Medical History / Comment(s): Hepatitis C, Pancreatitis, DDD, back pain, bilateral carpel tunnel syndrome. In the past has reported that he has heart disease that was found when he had kidney problems but he denies having a stress test or cardiac catheterization. History of Any Multi-Drug Resistant Organisms: None Reported MDRO Source:: unknown Past Surgical History: No Surgical Hx Reported, Unable to Obtain Additional Past Surgical History / Comment(s): Pt states he has had numerous "cysts" removed from where he injected IV drugs. Past Anesthesia/Blood Transfusion Reactions: No Reported Reaction, Unable to Obtain Additional Past Anesthesia/Blood Transfusion Reaction / Comment(s): In the past pt reported that he has never had surgery Past Psychological History: Anxiety, Bipolar, Depression, Schizophrenia Smoking Status: Current every day smoker Past Alcohol Use History: Abuse Past Drug Use History: Marijuana, Methamphetamine, Opiates - Past Family History Mother Family Medical History: Unable to Obtain, Rheumatoid Arthritis (RA) Additional Family Medical History / Comment(s): Mother is . Father Family Medical History: Coronary Artery Disease (CAD) <Emily Syed - Last Filed: 02/07/24 15:31> General Exam Limitations: altered mental status General appearance: lethargic Head exam: Present: atraumatic Eye exam: Present: normal appearance, PERRL, EOMI. Absent: scleral icterus, conjunctival injection, periorbital swelling ENT exam: Present: normal exam, mucous membranes moist Neck exam: Present: normal inspection. Absent: tenderness, meningismus, lymphadenopathy Neurological exam: Present: altered <Emily Syed - Last Filed: 02/07/24 15:31> Course Vital Signs 02/01/24 02/01/24 02/01/24 13:45 13:47 14:00 Temperature 97 F L Pulse Rate 87 82 97 Pulse Rate [ Right] Respiratory 17 16 16 Rate Blood Pressure 139/78 139/78 139/78 Blood Pressure [Right Arm Sitting] O2 Sat by Pulse 97 99 98 Oximetry 02/01/24 02/01/24 02/01/24 15:00 15:09 16:00 Temperature 98.5 F Pulse Rate 87 86 90 Pulse Rate [ Right] Respiratory 18 20 17 Rate Blood Pressure 139/84 160/98 168/89 Blood Pressure [Right Arm Sitting] O2 Sat by Pulse 97 98 95 Oximetry 02/01/24 02/01/24 02/01/24 17:00 18:00 19:00 Temperature Pulse Rate 88 90 92 Pulse Rate [ Right] Respiratory 18 15 18 Rate Blood Pressure 152/90 148/78 132/85 Blood Pressure [Right Arm Sitting] O2 Sat by Pulse 95 97 96 Oximetry 02/01/24 02/01/24 21:00 22:31 Temperature 97.8 F 97.6 F Pulse Rate 95 Pulse Rate [ 102 H Right] Respiratory 18 18 Rate Blood Pressure 150/87 Blood Pressure 152/85 [Right Arm Sitting] O2 Sat by Pulse 98 Oximetry Medical Decision Making - Lab Data Result diagrams: 02/01/24 14:36 02/01/24 14:36 <Ranulfo Seaman - Last Filed: 02/01/24 16:23> - Lab Data Result diagrams: 02/01/24 14:36 02/01/24 14:36 <Emily Syed - Last Filed: 02/07/24 15:31> - Medical Decision Making Was pt. sent in by a medical professional or institution (, LANE, CATALOGUE CLERK, urgent care, hospital, or halfway...) When possible be specific @ -No Did you speak to anyone other than the patient for history (EMS, parent, family, police, friend...)? What history was obtained from this source @ -No Did you review nursing and triage notes (agree or disagree)? Why? @ -I reviewed and agree with nursing and triage notes Were old charts reviewed (outside hosp., previous admission, EMS record, old EKG, old radiological studies, urgent care reports/EKG's, halfway records)? Report findings @ -No old charts were reviewed Differential Diagnosis (chest pain, altered mental status, abdominal pain women, abdominal pain men, vaginal bleeding, weakness, fever, dyspnea, syncope, headache, dizziness, GI bleed, back pain, seizure, CVA, palpatations, mental health, musculoskeletal)? @ -Not applicable EKG interpreted by me (3pts min.). @ -Not indicated X-rays interpreted by me (1pt min.). @ -None done CT interpreted by me (1pt min.). @ -None done U/S interpreted by me (1pt. min.). @ -None done What testing was considered but not performed or refused? (CT, X-rays, U/S, labs)? Why? @ -None What meds were considered but not given or refused? Why? @ -None Did you discuss the management of the patient with other professionals (professionals i.e. Dr., PA, CATALOGUE CLERK, lab, RT, psych nurse, social sciences professor, audio production manager, teacher, coastal/harbor defense officer, machine adjuster leader case trim)? Give summary @ -No Was smoking cessation discussed for >3mins.? @ -No Was critical care preformed (if so, how long)? @ -No Were there social determinants of health that impacted care today? How? (Homelessness, low income, unemployed, alcoholism, drug addiction, transportation, low edu. Level, literacy, decrease access to med. care, [facility], rehab)? @ -No Was there de-escalation of care discussed even if they declined (Discuss DNR or withdrawal of care, Hospice)? DNR status @ -No What co-morbidities impacted this encounter? (DM, HTN, Smoking, COPD, CAD, Cancer, CVA, ARF, Chemo, Hep., AIDS, mental health diagnosis, sleep apnea, morbid obesity)? @ -None Was patient admitted / discharged? Hospital course, mention meds given and route, prescriptions, significant lab abnormalities, going to OR and other pertinent info. @ -Hospital course the patient was admitted for inpatient treatment of alcohol intoxication and potential withdrawal Undiagnosed new problem with uncertain prognosis? @ -No Drug Therapy requiring intensive monitoring for toxicity (Heparin, Nitro, Insulin, Cardizem)? @ -No Were any procedures done? @ -No Diagnosis/symptom? @ -Acute alcohol intoxication Acute, or Chronic, or Acute on Chronic? @ -Acute Uncomplicated (without systemic symptoms) or Complicated (systemic symptoms)? @ -Default Side effects of treatment? @ -No Exacerbation, Progression, or Severe Exacerbation? @ -No Poses a threat to life or bodily function? How? (Chest pain, [place], [place], pneumonia, PE, COPD, DKA, ARF, appy, cholecystitis, CVA, Diverticulitis, Homicidal, Suicidal, threat to staff... and all critical care pts) @ -Potential (Ranulfo Seaman) Was pt. sent in by a medical professional or institution (, PA, CATALOGUE CLERK, urgent care, hospital, or halfway...) When possible be specific @ -No Did you speak to anyone other than the patient for history (EMS, parent, family, police, friend...)? What history was obtained from this source @ -EMS Did you review nursing and triage notes (agree or disagree)? Why? @ -I reviewed and agree with nursing and triage notes Were old charts reviewed (outside hosp., previous admission, EMS record, old EKG, old radiological studies, urgent care reports/EKG's, halfway records)? Report findings @ -Reviewed patient's previous records Differential Diagnosis (chest pain, altered mental status, abdominal pain women, abdominal pain men, vaginal bleeding, weakness, fever, dyspnea, syncope, headache, dizziness, GI bleed, back pain, seizure, CVA, palpatations, mental health, musculoskeletal)? @ -Differential Altered Mental Status: Hypoglycemia, DKA, hypercapnia, ETOH, overdose, CO poisoning, trauma, myxedema coma, HTN encephalopathy, infection, encephalitis, psychosis, intercranial hemorrhage, hepatic encephalopathy, meningitis, CVA, this is not meant to be an all-inclusive list EKG interpreted by me (3pts min.). @ -Not done X-rays interpreted by me (1pt min.). @ -None done CT interpreted by me (1pt min.). @ -None done U/S interpreted by me (1pt. min.). @ -None done What testing was considered but not performed or refused? (CT, X-rays, U/S, labs)? Why? @ -None What meds were considered but not given or refused? Why? @ -None Did you discuss the management of the patient with other professionals (professionals i.e. , LANE, CATALOGUE CLERK, lab, RT, psych nurse, social sciences professor, audio production manager, teacher, coastal/harbor defense officer, machine adjuster leader case trim)? Give summary @ -Dr. Seaman who will take over care of the patient Was smoking cessation discussed for >3mins.? @ -No Was critical care preformed (if so, how long)? @ -No Were there social determinants of health that impacted care today? How? (Homelessness, low income, unemployed, alcoholism, drug addiction, transportation, low edu. Level, literacy, decrease access to med. care, mcfp, rehab)? @ -No Was there de-escalation of care discussed even if they declined (Discuss DNR or withdrawal of care, Hospice)? DNR status @ -No What co-morbidities impacted this encounter? (DM, HTN, Smoking, COPD, CAD, Cancer, CVA, ARF, Chemo, Hep., AIDS, mental health diagnosis, sleep apnea, morbid obesity)? @ -Alcohol abuse Was patient admitted / discharged? Hospital course, mention meds given and route, prescriptions, significant lab abnormalities, going to OR and other pertinent info. @ -Upon arrival patient was seen and examined. He does appear to be significantly intoxicated. Laboratory studies are drawn and are pending at this time. Case will be signed out to Dr. Seaman Undiagnosed new problem with uncertain prognosis? @ -No Drug Therapy requiring intensive monitoring for toxicity (Heparin, Nitro, Insulin, Cardizem)? @ -No Were any procedures done? @ -No Diagnosis/symptom? @ -Acute toxic encephalopathy, acute alcohol intoxication Acute, or Chronic, or Acute on Chronic? @ -Acute Uncomplicated (without systemic symptoms) or Complicated (systemic symptoms)? @Complicated Side effects of treatment? @ -No Exacerbation, Progression, or Severe Exacerbation? @ -No Poses a threat to life or bodily function? How? (Chest pain, [place], [place], pneumonia, PE, COPD, DKA, ARF, appy, cholecystitis, CVA, Diverticulitis, Homicidal, Suicidal, threat to staff... and all critical care pts) @ -No (Emily Syed) - Lab Data Lab Results 02/01/24 02/01/24 02/01/24 Range/Units 14:36 14:36 14:36 WBC 8.8 (3.8-10.6) k/uL RBC 3.95 L (4.30-5.90) m/uL Hgb 11.6 L (13.0-17.5) gm/dL Hct 35.0 L (39.0-53.0) % MCV 88.4 (80.0-100.0) fL MCH 29.2 (25.0-35.0) pg MCHC 33.1 (31.0-37.0) g/dL RDW 15.4 (11.5-15.5) % Plt Count 392 (150-450) k/uL MPV 7.9 Neutrophils % 59 % Lymphocytes % 30 % Monocytes % 3 % Eosinophils % 5 % Basophils % 2 % Neutrophils # 5.2 (1.3-7.7) k/uL Lymphocytes # 2.6 (1.0-4.8) k/uL Monocytes # 0.3 (0-1.0) k/uL Eosinophils # 0.4 (0-0.7) k/uL Basophils # 0.1 (0-0.2) k/uL Sodium 142 (137-145) mmol/L Potassium 4.1 (3.5-5.1) mmol/L Chloride 107 (98-107) mmol/L Carbon Dioxide 23 (22-30) mmol/L Anion Gap 12 mmol/L BUN 11 (9-20) mg/dL Creatinine 0.77 (0.66-1.25) mg/dL Est GFR (CKD-EPI)AfAm >90 (>60 ml/min/1.73 sqM) Est GFR (CKD-EPI)NonAf >90 (>60 ml/min/1.73 sqM) Glucose 107 H (74-99) mg/dL Calcium 9.7 (8.4-10.2) mg/dL Total Bilirubin 0.2 (0.2-1.3) mg/dL AST 29 (17-59) U/L ALT 15 (4-49) U/L Alkaline Phosphatase 65 (38-126) U/L Creatine Kinase 115 (55-170) U/L Total Protein 7.9 (6.3-8.2) g/dL Albumin 4.3 (3.5-5.0) g/dL Urine Color Colorless Urine Appearance Clear (Clear) Urine pH 6.5 (5.0-8.0) Ur Specific [place] 1.002 (1.001-1.035) Urine Protein Negative (Negative) Urine Glucose (UA) Negative (Negative) Urine Ketones Negative (Negative) Urine Blood Negative (Negative) Urine Nitrite Negative (Negative) Urine Bilirubin Negative (Negative) Urine Urobilinogen <2.0 (<2.0) mg/dL Ur Leukocyte Esterase Negative (Negative) Urine Opiates Screen Not Detected (NotDetected) Ur Oxycodone Screen Not Detected (NotDetected) Urine Methadone Screen Not Detected (NotDetected) Ur Barbiturates Screen Not Detected (NotDetected) U Tricyclic Antidepress Not Detected (NotDetected) Ur Phencyclidine Scrn Not Detected (NotDetected) Ur Amphetamines Screen Not Detected (NotDetected) U Methamphetamines Scrn Not Detected (NotDetected) U Benzodiazepines Scrn Not Detected (NotDetected) Urine Cocaine Screen Not Detected (NotDetected) U Marijuana (THC) Screen Detected H (NotDetected) Serum Alcohol 268 H* mg/dL Disposition Decision Date: 02/01/24 Decision Time: 16:28 <Ranulfo Seaman - Last Filed: 02/01/24 16:23> <Emily Syed - Last Filed: 02/07/24 15:31> Clinical Impression: Alcohol intoxication Disposition: ADMITTED IP TO THIS [facility] Condition: Stable
[2024-02-01 15:13] LABS: Alcohol 268 mg/dL
[2024-02-01] MEDS ORDERED: NALOXONE 0.4 MG/ML 1 ML VIAL IV PRN (16:29)
[2024-02-01] MEDS: SODIUM CHLORIDE 0.9% 1,000 ML IV SCH (17:25)
[2024-02-01] MEDS: THIAMINE 100 MG/ML 2 ML VIAL IM STA ×2 (17:25→21:15)
[2024-02-01] MEDS: LORazepam 1 MG TAB PO PRN (21:14)
[2024-02-02 07:59] VITALS: BP 134/76; RESP 17; TEMP 98.5
[2024-02-02] MEDS: THIAMINE 100 MG TAB PO SCH ×2 (08:20→10:05)
[2024-02-02 10:29] VITALS: PULSE 97
--- NOTE | 2024-02-02 11:24 | P.HPIM ---
History of Present Illness 38-year-old male admitted after alcohol abuse and passing out with alcohol intoxication. Patient has not been drinking until yesterday and he relapsed again. Patient was picked up from [facility]. Patient is doing well today I do not expect any withdrawals as patient only relapsed yesterday patient is willing to quit alcohol patient community case manager is at bedside who is working on getting into getting him into alcohol rehabilitation patient denies any complaints at this point in time and patient will be discharged today. REVIEW OF SYSTEMS: CONSTITUTIONAL: No fever, no malaise, no fatigue. HEENT: No recent visual problems or hearing problems. Denied any sore throat. CARDIOVASCULAR: No chest pain, orthopnea, PND, no palpitations, no syncope. PULMONARY: No shortness of breath, no cough, no hemoptysis. GASTROINTESTINAL: No diarrhea, no nausea, no vomiting, no abdominal pain. NEUROLOGICAL: No headaches, no weakness, no numbness. HEMATOLOGICAL: Denies any bleeding or petechiae. GENITOURINARY: Denies any burning micturition, frequency, or urgency. MUSCULOSKELETAL/RHEUMATOLOGICAL: Denies any joint pain, swelling, or any muscle pain. ENDOCRINE: Denies any polyuria or polydipsia. The rest of the 14-point review of systems is negative. PHYSICAL EXAMINATION: GENERAL: The patient is alert and oriented x3, not in any acute distress. Well developed, well nourished. HEENT: Pupils are round and equally reacting to light. EOMI. No scleral icterus. No conjunctival pallor. Normocephalic, atraumatic. No pharyngeal erythema. No thyromegaly. CARDIOVASCULAR: S1 and S2 present. No murmurs, rubs, or gallops. PULMONARY: Chest is clear to auscultation, no wheezing or crackles. ABDOMEN: Soft, nontender, nondistended, normoactive bowel sounds. No palpable organomegaly. MUSCULOSKELETAL: No joint swelling or deformity. EXTREMITIES: No cyanosis, clubbing, or pedal edema. NEUROLOGICAL: Gross neurological examination did not reveal any focal deficits. SKIN: No rashes. Assessment and plan -Alcohol intoxication and abuse: Counseling was provided patient's community case manager is working on alcohol rehabilitation. -Alcohol withdrawal I do not expect any withdrawals as he only relapsed for a day will not require any medications for alcohol withdrawal -Depression -Bipolar disorder as per the history -History of multiple drug abuse -Hypertension Patient will be discharged today Past Medical History Past Medical History: GERD/Reflux, Hypertension, Liver Disease, Skin Disorder Additional Past Medical History / Comment(s): Hepatitis C, Pancreatitis, DDD, back pain, bilateral carpel tunnel syndrome. In the past has reported that he has heart disease that was found when he had kidney problems but he denies having a stress test or cardiac catheterization. History of Any Multi-Drug Resistant Organisms: None Reported MDRO Source:: unknown Past Surgical History: No Surgical Hx Reported, Unable to Obtain Additional Past Surgical History / Comment(s): Pt states he has had numerous "cysts" removed from where he injected IV drugs. Past Anesthesia/Blood Transfusion Reactions: No Reported Reaction, Unable to Obtain Additional Past Anesthesia/Blood Transfusion Reaction / Comment(s): In the past pt reported that he has never had surgery Past Psychological History: Anxiety, Bipolar, Depression, Schizophrenia Additional Psychological History / Comment(s): He has had multiple [facility] mental health admissions and suicide attempts in the past. Smoking Status: Current every day smoker Past Alcohol Use History: Abuse Additional Past Alcohol Use History / Comment(s): Pt started smoking in 1994 and smokes 1ppd. Unable to obtain alcohol history but chart states pt has history of alcohol abuse. Past Drug Use History: Marijuana, Methamphetamine, Opiates Additional Drug Use History / Comment(s): During this admission patient tested positive for Amphetamines, Methamphetamines, Cocaine, and Marijuana. Patient has past history of herion abuse. - Past Family History Mother Family Medical History: Unable to Obtain, Rheumatoid Arthritis (RA) Additional Family Medical History / Comment(s): Mother is . Father Family Medical History: Coronary Artery Disease (CAD) Medications and Allergies Home Medications Medication Instructions Recorded Confirmed Type Thiamine [Vitamin B-1] 100 mg PO DAILY 30 Days #30 tab 12/11/23 02/01/24 Rx buPROPion XL [Wellbutrin XL] 150 mg PO DAILY 30 Days #30 tab 12/11/23 02/01/24 Rx Aspirin 81 mg PO DAILY #30 tab 01/22/24 02/01/24 Rx Folic Acid 1 mg PO DAILY #30 tab 01/22/24 02/01/24 Rx Magnesium Oxide [Mag-Ox] 400 mg PO BID #60 tab 01/22/24 02/01/24 Rx Multivitamins, Thera [Multivitamin 1 each PO DAILY #30 tab 01/22/24 02/01/24 Rx (formulary)] QUEtiapine [SEROquel] 100 mg PO BID 30 Days #60 tab 01/22/24 02/01/24 Rx Sevelamer [Renvela] 800 mg PO TID-W/MEALS #90 tab 01/22/24 02/01/24 Rx amLODIPine [Norvasc] 5 mg PO BID #60 tab 01/22/24 02/01/24 Rx carvediloL [Coreg] 6.25 mg PO BID-W/MEALS #60 tab 01/22/24 02/01/24 Rx cloNIDine 0.2 MG/24HR PATCH 1 patch TRANSDERM Q7D 30 Days #3 01/22/24 02/01/24 Rx [Catapres-TTS] patch hydrALAZINE HCL [Apresoline] 50 mg PO TID 30 Days #90 tab 01/22/24 02/01/24 Rx Allergies Allergy/AdvReac Type Severity Reaction Status Date / Time flea Allergy Rash/Hives Uncoded 02/01/24 16:54 Physical Exam Vitals: Vital Signs Temp Pulse Pulse Pulse Resp BP BP 02/02/24 08:00 89 97 17 02/02/24 07:10 98.5 F 89 17 02/02/24 01:44 97.7 F 97 16 150/80 02/01/24 22:31 97.6 F 102 H 18 152/85 02/01/24 21:00 97.8 F 95 18 150/87 02/01/24 19:00 92 18 132/85 02/01/24 18:00 90 15 148/78 02/01/24 17:00 88 18 152/90 02/01/24 16:00 90 17 168/89 02/01/24 15:09 98.5 F 86 20 160/98 02/01/24 15:00 87 18 139/84 02/01/24 14:00 97 16 139/78 02/01/24 13:47 97 F L 82 16 139/78 02/01/24 13:45 87 17 139/78 BP Pulse Ox 02/02/24 08:00 02/02/24 07:10 134/76 99 02/02/24 01:44 98 02/01/24 22:31 98 02/01/24 21:00 02/01/24 19:00 96 02/01/24 18:00 97 02/01/24 17:00 95 02/01/24 16:00 95 02/01/24 15:09 98 02/01/24 15:00 97 02/01/24 14:00 98 02/01/24 13:47 99 02/01/24 13:45 97 Intake and Output 02/01/24 02/02/24 02/02/24 22:59 06:59 14:59 Intake Total 708 Output Total 500 Balance -500 708 Intake: Oral 708 Output: Urine 500 Other: Voiding Method Toilet # Voids 6 Weight 68.039 kg Results CBC & Chem 7: 02/01/24 14:36 02/01/24 14:36 Labs: Abnormal Lab Results - Last 24 Hours (Table) 02/01/24 02/01/24 02/01/24 Range/Units 14:36 14:36 14:36 RBC 3.95 L (4.30-5.90) m/uL Hgb 11.6 L (13.0-17.5) gm/dL Hct 35.0 L (39.0-53.0) % Glucose 107 H (74-99) mg/dL U Marijuana (THC) Screen Detected H (NotDetected) Serum Alcohol 268 H* mg/dL
--- NOTE | 2024-02-02 11:24 | P.DS ---
Providers Date of admission: 02/01/24 16:30 Attending physician: Joelle Bloom Primary care physician: Stated None Hospital Course: 38-year-old male admitted after alcohol abuse and passing out with alcohol intoxication. Patient has not been drinking until yesterday and he relapsed again. Patient was picked up from [facility]. Patient is doing well today I do not expect any withdrawals as patient only relapsed yesterday patient is willing to quit alcohol patient porter sample case is at bedside who is working on getting into getting him into alcohol rehabilitation patient denies any complaints at this point in time and patient will be discharged today. PHYSICAL EXAMINATION: GENERAL: The patient is alert and oriented x3, not in any acute distress. Well developed, well nourished. HEENT: Pupils are round and equally reacting to light. EOMI. No scleral icterus. No conjunctival pallor. Normocephalic, atraumatic. No pharyngeal erythema. No thyromegaly. CARDIOVASCULAR: S1 and S2 present. No murmurs, rubs, or gallops. PULMONARY: Chest is clear to auscultation, no wheezing or crackles. ABDOMEN: Soft, nontender, nondistended, normoactive bowel sounds. No palpable organomegaly. MUSCULOSKELETAL: No joint swelling or deformity. EXTREMITIES: No cyanosis, clubbing, or pedal edema. NEUROLOGICAL: Gross neurological examination did not reveal any focal deficits. SKIN: No rashes. Assessment and plan -Alcohol intoxication and abuse: Counseling was provided patient's porter sample case is working on alcohol rehabilitation. -Alcohol withdrawal I do not expect any withdrawals as he only relapsed for a day will not require any medications for alcohol withdrawal -Depression -Bipolar disorder as per the history -History of multiple drug abuse -Hypertension Patient will be discharged today Patient Condition at Discharge: Stable Plan - Discharge Summary New Discharge Prescriptions: No Action Thiamine [Vitamin B-1] 100 mg PO DAILY 30 Days #30 tab Aspirin 81 mg PO DAILY #30 tab cloNIDine 0.2 MG/24HR PATCH [Catapres-TTS] 1 patch TRANSDERM Q7D 30 Days #3 patch Magnesium Oxide [Mag-Ox] 400 mg PO BID #60 tab Multivitamins, Thera [Multivitamin (formulary)] 1 each PO DAILY #30 tab amLODIPine [Norvasc] 5 mg PO BID #60 tab Sevelamer [Renvela] 800 mg PO TID-W/MEALS #90 tab buPROPion XL [Wellbutrin XL] 150 mg PO DAILY 30 Days #30 tab hydrALAZINE HCL [Apresoline] 50 mg PO TID 30 Days #90 tab carvediloL [Coreg] 6.25 mg PO BID-W/MEALS #60 tab Folic Acid 1 mg PO DAILY #30 tab QUEtiapine [SEROquel] 100 mg PO BID 30 Days #60 tab Discharge Medication List Thiamine [Vitamin B-1] 100 mg PO DAILY 30 Days #30 tab 12/11/23 [Rx] buPROPion XL [Wellbutrin XL] 150 mg PO DAILY 30 Days #30 tab 12/11/23 [Rx] Aspirin 81 mg PO DAILY #30 tab 01/22/24 [Rx] Folic Acid 1 mg PO DAILY #30 tab 01/22/24 [Rx] Magnesium Oxide [Mag-Ox] 400 mg PO BID #60 tab 01/22/24 [Rx] Multivitamins, Thera [Multivitamin (formulary)] 1 each PO DAILY #30 tab 01/22/24 [Rx] QUEtiapine [SEROquel] 100 mg PO BID 30 Days #60 tab 01/22/24 [Rx] Sevelamer [Renvela] 800 mg PO TID-W/MEALS #90 tab 01/22/24 [Rx] amLODIPine [Norvasc] 5 mg PO BID #60 tab 01/22/24 [Rx] carvediloL [Coreg] 6.25 mg PO BID-W/MEALS #60 tab 01/22/24 [Rx] cloNIDine 0.2 MG/24HR PATCH [Catapres-TTS] 1 patch TRANSDERM Q7D 30 Days #3 patch 01/22/24 [Rx] hydrALAZINE HCL [Apresoline] 50 mg PO TID 30 Days #90 tab 01/22/24 [Rx] Follow up Appointment(s)/Referral(s): Elisa Amaya MD [STAFF PHYSICIAN] - 1 Week Discharge/Stand Alone Forms: AA Meetings [place], [facility], Who Do I Call?, Community Resources, Outpatient Counseling, In Substance Abuse Facilities Discharge Disposition: HOME SELF-CARE
[2024-02-02] MEDS: NICOTINE 14MG/24HR PATCH TRANSDERM STA (12:16)
[2024-02-02] MEDS: buPROPion XL 150 MG TAB.ER.24H PO SCH (12:50)
[2024-02-02] MEDS ORDERED: MELATONIN 5 MG TABLET PO SCH (21:00)
== END 2024-02-02 13:08 | disposition home or self-care (01) ==
LOC: EC 13:38 → 6NMEDSUR 16:30
PROVIDERS: ADMIT Internal Medicine; ATTEND Internal Medicine
DX: F10.229 Alcohol dependence with intoxication, unspecified (principal); K21.9 Gastro-esophageal reflux disease without esophagitis; I10 Essential (primary) hypertension; F20.9 Schizophrenia, unspecified; F31.9 Bipolar disorder, unspecified; F41.9 Anxiety disorder, unspecified; F17.200 Nicotine dependence, unspecified, uncomplicated; Y90.8 Blood alcohol level of 240 mg/100 ml or more; Z86.19 Personal history of other infectious and parasitic diseases; Z79.82 Long term (current) use of aspirin; Z79.899 Other long term (current) drug therapy
CPT/HCPCS: 96372; 99285; 36415; 80053; 82550; 85025; 81003; 80306; G0378 ×2; G0480; S4990; J3411; 80320

== ENCOUNTER 2024-02-26 12:54 | Observation (INO) | payer OTHER ==
--- NOTE | 2024-02-26 13:24 | ED ---
General Adult HPI - General Chief complaint: Alcohol Stated complaint: ETOH Time Seen by Provider: 02/26/24 12:55 Source: EMS Mode of arrival: EMS - History of Present Illness Initial comments: Dictation was produced using [employer] dictation software. please excuse any grammatical, word or spelling errors. Chief Complaint: 38-year-old male presents to the emergency department for altered mental status History of Present Illness: Patient 38-year-old male who was brought in by EMS. Patient had a witnessed syncope on the side of the road. He is a known alcoholic. Patient unable to provide history of present illness. He does however state that he did drink today approximately a pint of vodka. States that he does not drink every day. States that he was celebrating and occasion. He has no pain complaints. Unable to obtain detailed ROS secondary to mental status - Related Data Previous Rx's Medication Instructions Recorded Thiamine [Vitamin B-1] 100 mg PO DAILY 30 Days #30 tab 12/11/23 Aspirin 81 mg PO DAILY #30 tab 01/22/24 Folic Acid 1 mg PO DAILY #30 tab 01/22/24 Magnesium Oxide [Mag-Ox] 400 mg PO BID #60 tab 01/22/24 Multivitamins, Thera [Multivitamin 1 each PO DAILY #30 tab 01/22/24 (formulary)] QUEtiapine [SEROquel] 100 mg PO BID 30 Days #60 tab 01/22/24 Sevelamer [Renvela] 800 mg PO TID-W/MEALS #90 tab 01/22/24 amLODIPine [Norvasc] 5 mg PO BID #60 tab 01/22/24 carvediloL [Coreg] 6.25 mg PO BID-W/MEALS #60 tab 01/22/24 cloNIDine 0.2 MG/24HR PATCH 1 patch TRANSDERM Q7D 30 Days #3 01/22/24 [Catapres-TTS] patch hydrALAZINE HCL [Apresoline] 50 mg PO TID 30 Days #90 tab 01/22/24 buPROPion XL [Wellbutrin XL] 150 mg PO DAILY 30 Days #30 tab 02/02/24 Allergies Allergy/AdvReac Type Severity Reaction Status Date / Time flea Allergy Rash/Hives Uncoded 02/26/24 13:06 Review of Systems ROS Statement: Those systems with pertinent positive or pertinent negative responses have been documented in the HPI. ROS Other: All systems not noted in ROS Statement are negative. Past Medical History Past Medical History: GERD/Reflux, Hypertension, Liver Disease, Skin Disorder Additional Past Medical History / Comment(s): Hepatitis C, Pancreatitis, DDD, back pain, bilateral carpel tunnel syndrome. In the past has reported that he has heart disease that was found when he had kidney problems but he denies having a stress test or cardiac catheterization. History of Any Multi-Drug Resistant Organisms: None Reported MDRO Source:: unknown Past Surgical History: No Surgical Hx Reported, Unable to Obtain Additional Past Surgical History / Comment(s): Pt states he has had numerous "cysts" removed from where he injected IV drugs. Past Anesthesia/Blood Transfusion Reactions: No Reported Reaction, Unable to Obtain Additional Past Anesthesia/Blood Transfusion Reaction / Comment(s): In the past pt reported that he has never had surgery Past Psychological History: Anxiety, Bipolar, Depression, Schizophrenia Smoking Status: Current every day smoker Past Alcohol Use History: Abuse, Heavy Past Drug Use History: Marijuana, Methamphetamine, Opiates - Past Family History Mother Family Medical History: Unable to Obtain, Rheumatoid Arthritis (RA) Additional Family Medical History / Comment(s): Mother is . Father Family Medical History: Coronary Artery Disease (CAD) General Exam - General Exam Comments Initial Comments: PHYSICAL EXAM: General Impression: Al obtunded, arousable HEENT: Normocephalic atraumatic, extra-ocular movements intact, pupils equal and reactive to light bilaterally, mucous membranes moist. Cardiovascular: Heart regular rate and rhythm Chest: no retractions, no tachypnea Abdomen: abdomen soft, non-tender, non-distended, no organomegaly Musculoskeletal: Pulses present and equal in all extremities, no peripheral edema Motor: no focal deficits noted Neurological: CN II-XII grossly intact, no focal motor or sensory deficits noted Skin: Intact with no visualized rashes Course Vital Signs 02/26/24 02/26/24 12:59 14:45 Temperature 97.8 F Pulse Rate 87 102 H Respiratory 16 16 Rate Blood Pressure 116/69 137/90 O2 Sat by Pulse 95 96 Oximetry Medical Decision Making - Medical Decision Making Was pt. sent in by a medical professional or institution (, PA, PAPERHANGER APPRENTICE, urgent care, hospital, or correction...) When possible be specific @ -No Did you speak to anyone other than the patient for history (EMS, parent, family, police, friend...)? What history was obtained from this source @ -No Did you review nursing and triage notes (agree or disagree)? Why? @ -I reviewed and agree with nursing and triage notes Were old charts reviewed (outside hosp., previous admission, EMS record, old EKG, old radiological studies, urgent care reports/EKG's, correction records)? Report findings @ -No old charts were reviewed Differential Diagnosis (chest pain, altered mental status, abdominal pain women, abdominal pain men, vaginal bleeding, musculoskeletal, weakness, fever, dyspnea, syncope, headache, dizziness, GI bleed, back pain, seizure, CVA, palpatations, mental health)? @ -Differential Altered Mental Status: Hypoglycemia, DKA, hypercapnia, ETOH, overdose, CO poisoning, trauma, myxedema coma, HTN encephalopathy, infection, encephalitis, psychosis, intercranial hemorrhage, hepatic encephalopathy, meningitis, CVA, this is not meant to be an all-inclusive list EKG interpreted by me (3pts min.). @ -My EKG interpretation: Ventricular rate 82, sinus rhythm,. 136, cures 109, QTc 422. No MO prolongation, no QTC prolongation, no ST or T-wave changes noted. Overall, this EKG is unremarkable X-rays interpreted by me (1pt min.). @ -None done CT interpreted by me (1pt min.). @ -CT scan of the brain shows no acute processes U/S interpreted by me (1pt. min.). @ -None done What testing was considered but not performed or refused? (CT, X-rays, U/S, labs)? Why? @ -None What meds were considered but not given or refused? Why? @ -None Did you discuss the management of the patient with other professionals (professionals i.e. , PA, PAPERHANGER APPRENTICE, lab, RT, psych nurse, manager social responsibility, media marketing manager, teacher, [employer] officer, correctional casework specialist)? Give summary @ -Case discussed with hospitalist for admission Was smoking cessation discussed for >3mins.? @ -No Was critical care preformed (if so, how long)? @ -No Were there social determinants of health that impacted care today? How? (Homelessness, low income, unemployed, alcoholism, drug addiction, transportation, low edu. Level, literacy, decrease access to med. care, [facility], rehab)? @ -No Was there de-escalation of care discussed even if they declined (Discuss DNR or withdrawal of care, Hospice)? DNR status @ -No What co-morbidities impacted this encounter? (DM, HTN, Smoking, COPD, CAD, Cancer, CVA, ARF, Chemo, Hep., AIDS, mental health diagnosis, sleep apnea, morbid obesity)? @ -None Was patient admitted / discharged? Hospital course, mention meds given and route, prescriptions, significant lab abnormalities, going to OR and other pertinent info. @ -38-year-old male presents to the emergency department for altered mental status and allegedly syncope. Vital signs upon arrival are within acceptable limits. Patient does report alcohol intake. Laboratory evaluation is within acceptable limits. Alcohol is positive at 281. CT scan the brain is negative. Patient still inebriated. Will be admitted for EtOH intoxication. Undiagnosed new problem with uncertain prognosis? @ -No Drug Therapy requiring intensive monitoring for toxicity (Heparin, Nitro, Insulin, Cardizem)? @ -No Were any procedures done? @ -No Diagnosis/symptom? Acute, or Chronic, or Acute on Chronic? Uncomplicated (without systemic symptoms) or Complicated (systemic symptoms)? @ -Alcohol intoxication Side effects of treatment? @ -No Exacerbation, Progression, or Severe Exacerbation? @ -No Poses a threat to life or bodily function? How? (Chest pain, USA, MA, pneumonia, PE, COPD, DKA, ARF, appy, cholecystitis, CVA, Diverticulitis, Homicidal, Suicidal, threat to staff... and all critical care pts) @ -No - Lab Data Result diagrams: 02/26/24 13:55 02/26/24 13:55 Lab Results 02/26/24 02/26/24 02/26/24 Range/Units 13:55 13:55 13:55 WBC 7.3 (3.8-10.6) k/uL RBC 3.67 L (4.30-5.90) m/uL Hgb 10.7 L (13.0-17.5) gm/dL Hct 32.1 L (39.0-53.0) % MCV 87.4 (80.0-100.0) fL MCH 29.2 (25.0-35.0) pg MCHC 33.4 (31.0-37.0) g/dL RDW 14.5 (11.5-15.5) % Plt Count 230 (150-450) k/uL MPV 7.8 Neutrophils % 68 % Lymphocytes % 21 % Monocytes % 5 % Eosinophils % 3 % Basophils % 1 % Neutrophils # 5.0 (1.3-7.7) k/uL Lymphocytes # 1.5 (1.0-4.8) k/uL Monocytes # 0.4 (0-1.0) k/uL Eosinophils # 0.2 (0-0.7) k/uL Basophils # 0.1 (0-0.2) k/uL PT 10.9 (10.0-12.5) sec INR 1.0 (<1.2) APTT 24.1 (22.0-30.0) sec Sodium 142 (137-145) mmol/L Potassium 3.4 L (3.5-5.1) mmol/L Chloride 111 H (98-107) mmol/L Carbon Dioxide 22 (22-30) mmol/L Anion Gap 9 mmol/L BUN 8 L (9-20) mg/dL Creatinine 0.60 L (0.66-1.25) mg/dL Est GFR (CKD-EPI)AfAm >90 (>60 ml/min/1.73 sqM) Est GFR (CKD-EPI)NonAf >90 (>60 ml/min/1.73 sqM) Glucose 107 H (74-99) mg/dL Plasma Lactic Acid Sohail (0.7-2.0) mmol/L Calcium 9.0 (8.4-10.2) mg/dL Magnesium 2.0 (1.6-2.3) mg/dL Total Bilirubin 0.2 (0.2-1.3) mg/dL AST 21 (17-59) U/L ALT 13 (4-49) U/L Alkaline Phosphatase 55 (38-126) U/L Troponin I (0.000-0.034) ng/mL Total Protein 6.3 (6.3-8.2) g/dL Albumin 3.6 (3.5-5.0) g/dL Lipase 20 L (23-300) U/L Serum Alcohol 281 H* mg/dL 02/26/24 02/26/24 Range/Units 13:55 13:55 WBC (3.8-10.6) k/uL RBC (4.30-5.90) m/uL Hgb (13.0-17.5) gm/dL Hct (39.0-53.0) % MCV (80.0-100.0) fL MCH (25.0-35.0) pg MCHC (31.0-37.0) g/dL RDW (11.5-15.5) % Plt Count (150-450) k/uL MPV Neutrophils % % Lymphocytes % % Monocytes % % Eosinophils % % Basophils % % Neutrophils # (1.3-7.7) k/uL Lymphocytes # (1.0-4.8) k/uL Monocytes # (0-1.0) k/uL Eosinophils # (0-0.7) k/uL Basophils # (0-0.2) k/uL PT (10.0-12.5) sec INR (<1.2) APTT (22.0-30.0) sec Sodium (137-145) mmol/L Potassium (3.5-5.1) mmol/L Chloride (98-107) mmol/L Carbon Dioxide (22-30) mmol/L Anion Gap mmol/L BUN (9-20) mg/dL Creatinine (0.66-1.25) mg/dL Est GFR (CKD-EPI)AfAm (>60 ml/min/1.73 sqM) Est GFR (CKD-EPI)NonAf (>60 ml/min/1.73 sqM) Glucose (74-99) mg/dL Plasma Lactic Acid Sohail 2.6 H* (0.7-2.0) mmol/L Calcium (8.4-10.2) mg/dL Magnesium (1.6-2.3) mg/dL Total Bilirubin (0.2-1.3) mg/dL AST (17-59) U/L ALT (4-49) U/L Alkaline Phosphatase (38-126) U/L Troponin I <0.012 (0.000-0.034) ng/mL Total Protein (6.3-8.2) g/dL Albumin (3.5-5.0) g/dL Lipase (23-300) U/L Serum Alcohol mg/dL Disposition Clinical Impression: Alcohol intoxication Disposition: ADMITTED IP TO THIS HOSP Condition: Fair Referrals: None,Stated [Primary Care Provider] - 1-2 days Decision Time: 16:34
[2024-02-26 14:02] LABS: Basophils # (A) 0.1 k/uL (0-0.2); Basophils % (A) 1 %; Eosinophils # (A) 0.2 k/uL (0-0.7); Eosinophils % (A) 3 %; HCT 32.1 % (39.0-53.0); HGB 10.7 gm/dL (13.0-17.5); Lymphocytes # (A) 1.5 k/uL (1.0-4.8); Lymphocytes % (A) 21 %; MCH 29.2 pg (25.0-35.0); MCHC 33.4 g/dL (31.0-37.0); MCV 87.4 fL (80.0-100.0); Mean Platelet Volume 7.8; Monocytes # (A) 0.4 k/uL (0-1.0); Monocytes % (A) 5 %; Neutrophils % (A) 68 %; Platelet Count 230 k/uL (150-450); RBC 3.67 m/uL (4.30-5.90); RDW 14.5 % (11.5-15.5); WBC 7.3 k/uL (3.8-10.6)
[2024-02-26 14:19] LABS: ALT 13 U/L (4-49); AST 21 U/L (17-59); African American GFR (CKD) >90 (>60 ml/min/1.73 sqM); Albumin 3.6 g/dL (3.5-5.0); Alkaline Phosphatase 55 U/L (38-126); Anion Gap 9 mmol/L; Blood Urea Nitrogen 8 mg/dL (9-20); Carbon Dioxide 22 mmol/L (22-30); Chloride 111 mmol/L (98-107); Glucose 107 mg/dL (74-99); Lipase 20 U/L (23-300); Non-African American GFR(CKD) >90 (>60 ml/min/1.73 sqM); Potassium 3.4 mmol/L (3.5-5.1); Sodium 142 mmol/L (137-145); Total Bilirubin 0.2 mg/dL (0.2-1.3); Total Protein 6.3 g/dL (6.3-8.2)
[2024-02-26 14:31] LABS: Partial Thromboplastin Time 24.1 sec (22.0-30.0); Prothrombin Time 10.9 sec (10.0-12.5)
[2024-02-26 14:39] LABS: Alcohol 281 mg/dL
[2024-02-26] MEDS: SODIUM CHLORIDE 0.9% 1,000 ML IV STA (14:56)
--- NOTE | 2024-02-26 16:08 | CT ---
EXAMINATION TYPE: CT brain wo con DATE OF EXAM: 02/26/2024 COMPARISON: CT brain 01/04/2024 INDICATION: AMS AND ETOH DLP: 1136.4 mGycm, Automated exposure control for dose reduction was used. CONTRAST: None CT of the brain is performed utilizing 3 mm thick sections through the posterior fossa and 3 mm thick sections through the remaining calvarium. Study is performed within 24 hours of arrival to the hosp ital. No abnormal hyperdensity is present to suggest an acute intracranial hemorrhage. No mass lesion is evident. No acute infarcts are evident. Ventricles and sulci are appropriate for the patient age. Retention cysts are within the left maxillary sinus. Paranasal sinuses and mastoid air cells within t he [id number] are otherwise clear. No significant interval change is evident. IMPRESSION: 1. No acute intracranial process. Follow-up MRI can be performed as clinically indicated
[2024-02-26] MEDS ORDERED: NALOXONE 0.4 MG/ML 1 ML VIAL IV PRN (16:22)
[2024-02-26] MEDS: SODIUM CHLORIDE 0.9% 1,000 ML IV SCH (16:54)
[2024-02-26] MEDS ORDERED: LORazepam 2 MG/ML INJ IV PRN ×3 (21:29)
[2024-02-26] MEDS: POTASSIUM CHLORIDE 20 MEQ in WATER FOR INJECTION 1 100ML.BAG IVPB ONE (21:56)
[2024-02-26] MEDS: QUEtiapine 100 MG TAB PO SCH (23:00)
[2024-02-26] MEDS: hydrALAZINE HCL 50 MG TAB PO SCH (23:00)
[2024-02-26] MEDS: amLODIPine 5 MG TAB PO SCH (23:00)
[2024-02-26] MEDS: carvediloL 6.25 MG TAB PO SCH (23:00)
[2024-02-27] MEDS: HEPARIN SODIUM,PORCINE 5,000 UNIT/ML 1 ML VIAL SQ SCH (00:26)
--- NOTE | 2024-02-27 00:30 | P.HPIM ---
History of Present Illness H&P Date: 02/26/24 Chief Complaint: Fall Patient is a 38-year-old male with a past medical history of hepatitis C, pancreatitis, DDD, chronic back pain, hypertension, GERD, anxiety/depression/bi polar and schizophrenia and current everyday smoker and heavy alcohol abuse and marijuana and methamphetamine opiate use was brought to the hospital due to alcohol intoxication. Patient fell on the side of the road. Patient was able to respond with verbal stimuli but intoxicated on admission. CT head showed no acute intracranial process. EKG showed sinus rhythm Laboratory data showed WBC 7.3 hemoglobin 10.7 platelets 230 Sodium 142 potassium 3.4 chloride 101 bicarb is, BUN 8 and creatinine 0.6 and blood sugar 107 lactic acid 2.6 22 Lipase level is 20 Serum alcohol level is 281 Review of Systems ROS unobtainable: due to mental status Past Medical History Past Medical History: GERD/Reflux, Hypertension, Liver Disease, Skin Disorder Additional Past Medical History / Comment(s): Hepatitis C, Pancreatitis, DDD, back pain, bilateral carpel tunnel syndrome. In the past has reported that he has heart disease that was found when he had kidney problems but he denies having a stress test or cardiac catheterization. History of Any Multi-Drug Resistant Organisms: None Reported MDRO Source:: unknown Past Surgical History: No Surgical Hx Reported, Unable to Obtain Additional Past Surgical History / Comment(s): Pt states he has had numerous "cysts" removed from where he injected IV drugs. Past Anesthesia/Blood Transfusion Reactions: No Reported Reaction, Unable to Obtain Additional Past Anesthesia/Blood Transfusion Reaction / Comment(s): In the past pt reported that he has never had surgery Past Psychological History: Anxiety, Bipolar, Depression, Schizophrenia Smoking Status: Current every day smoker Past Alcohol Use History: Abuse, Heavy Past Drug Use History: Marijuana, Methamphetamine, Opiates - Past Family History Mother Family Medical History: Unable to Obtain, Rheumatoid Arthritis (RA) Additional Family Medical History / Comment(s): Mother is . Father Family Medical History: Coronary Artery Disease (CAD) Medications and Allergies Home Medications Medication Instructions Recorded Confirmed Type Thiamine [Vitamin B-1] 100 mg PO DAILY 30 Days #30 tab 12/11/23 02/26/24 Rx Aspirin 81 mg PO DAILY #30 tab 01/22/24 02/26/24 Rx Folic Acid 1 mg PO DAILY #30 tab 01/22/24 02/26/24 Rx Magnesium Oxide [Mag-Ox] 400 mg PO BID #60 tab 01/22/24 02/26/24 Rx QUEtiapine [SEROquel] 100 mg PO BID 30 Days #60 tab 01/22/24 02/26/24 Rx Sevelamer [Renvela] 800 mg PO TID-W/MEALS #90 tab 01/22/24 02/26/24 Rx amLODIPine [Norvasc] 5 mg PO BID #60 tab 01/22/24 02/26/24 Rx carvediloL [Coreg] 6.25 mg PO BID-W/MEALS #60 tab 01/22/24 02/26/24 Rx cloNIDine 0.2 MG/24HR PATCH 1 patch TRANSDERM Q7D 30 Days #3 01/22/24 02/26/24 Rx [Catapres-TTS] patch hydrALAZINE HCL [Apresoline] 50 mg PO TID 30 Days #90 tab 01/22/24 02/26/24 Rx buPROPion XL [Wellbutrin XL] 150 mg PO DAILY 30 Days #30 tab 02/02/24 02/26/24 Rx Haloperidol Decanoate [Haldol D] 200 mg IM Q14D 02/26/24 02/26/24 History Multivitamins, Thera [Multivitamin 1 tab PO DAILY 02/26/24 02/26/24 History (formulary)] Allergies Allergy/AdvReac Type Severity Reaction Status Date / Time flea Allergy Rash/Hives Uncoded 02/26/24 13:06 Physical Exam Vitals: Vital Signs Temp Pulse Pulse Resp BP BP Pulse Ox 02/26/24 18:32 97.7 F 95 16 156/98 97 02/26/24 17:14 104 H 18 151/74 98 02/26/24 14:45 102 H 16 137/90 96 02/26/24 12:59 97.8 F 87 16 116/69 95 Intake and Output 02/26/24 02/26/24 02/26/24 06:59 14:59 22:59 Other: Weight 86.183 kg PHYSICAL EXAMINATION: Patient is lying in the bed no acute distress, awake alert and oriented.. Drowsy and lethargic and intoxicated HEENT: Normocephalic. Neck is supple. Pupils reactive. Nostrils clear. Oral cavity is moist. Neck reveals no JVD, carotid bruits, or thyromegaly. CHEST EXAMINATION: Trachea is central. Symmetrical expansion. Lung peña clear to auscultation and percussion. CARDIAC: Normal S1, S2 with no gallops. No murmurs ABDOMEN: Soft. Bowel sounds normal. No organomegaly. No abdominal bruits. Extremities: reveal no edema. No clubbing or cyanosis Neurologically awake, alert, oriented x 1-2 able to move all extremities. No gross focal deficits noted Skin: No rash or skin lesions. Psychiatric: Coperative. Could not be assessed completely Musculoskeletal: No joint swelling or deformity. Results CBC & Chem 7: 02/27/24 05:46 02/27/24 05:46 Labs: Abnormal Lab Results - Last 24 Hours (Table) 02/26/24 02/26/24 02/26/24 Range/Units 13:55 13:55 13:55 RBC 3.67 L (4.30-5.90) m/uL Hgb 10.7 L (13.0-17.5) gm/dL Hct 32.1 L (39.0-53.0) % Potassium 3.4 L (3.5-5.1) mmol/L Chloride 111 H (98-107) mmol/L BUN 8 L (9-20) mg/dL Creatinine 0.60 L (0.66-1.25) mg/dL Glucose 107 H (74-99) mg/dL Plasma Lactic Acid Sohail 2.6 H* (0.7-2.0) mmol/L Lipase 20 L (23-300) U/L Serum Alcohol 281 H* mg/dL 02/26/24 Range/Units 17:18 RBC (4.30-5.90) m/uL Hgb (13.0-17.5) gm/dL Hct (39.0-53.0) % Potassium (3.5-5.1) mmol/L Chloride (98-107) mmol/L BUN (9-20) mg/dL Creatinine (0.66-1.25) mg/dL Glucose (74-99) mg/dL Plasma Lactic Acid Sohail 3.1 H* (0.7-2.0) mmol/L Lipase (23-300) U/L Serum Alcohol mg/dL Thrombosis Risk Factor Assmnt - DVT/VTE Prophylaxis DVT/VTE Prophylaxis: Pharmacologic Prophylaxis ordered Assessment and Plan Assessment: Acute alcohol intoxication Status post fall likely secondary to above Lactic acidosis Hypokalemia History of alcohol abuse and currently drinks 1 pint on occasion Hepatitis C History of pancreatitis Degenerative disc disease Chronic back pain Bilateral carpal syndrome GERD Anxiety/depression/bipolar and schizophrenia Current everyday smoker History of marijuana and methamphetamine opiate use Plan: Patient will be continued on IV hydration with normal saline. Continue with thiamine and multivitamins. Current with GI and DVT prophylaxis and monitor for alcohol withdrawal symptoms. Patient was started back on home blood pressure medications and other psychiatric medications. Time with Patient: Greater than 30
[2024-02-27] MEDS: FOLIC ACID 1 MG TAB PO SCH (08:59)
[2024-02-27] MEDS: ASPIRIN 81 MG PO SCH (08:59)
[2024-02-27] MEDS: MULTIVITAMINS, THERA 1 EACH TAB PO SCH (08:59)
[2024-02-27 10:45] LABS: Basophils # (A) 0.05 X 10*3/uL (0.00-0.10); Basophils % (A) 0.6 %; Eosinophils # (A) 0.31 X 10*3/uL (0.04-0.35); Eosinophils % (A) 3.7 %; HCT 29.7 % (39.6-50.0); HGB 9.7 g/dL (13.0-17.0); Lymphocytes # (A) 1.94 X 10*3/uL (0.90-5.00); Lymphocytes % (A) 23.4 %; MCH 28.8 pg (27.0-32.0); MCHC 32.7 g/dL (32.0-37.0); MCV 88.1 FL (80.0-97.0); Mean Platelet Volume 11.1 FL (9.5-12.2); Monocytes # (A) 0.59 X 10*3/uL (0.20-1.00); Monocytes % (A) 7.1 %; NRBC Per 100 WBC 0 X 10*3/uL (0.00-0.01); Neutrophils # (A) 5.39 X 10*3/uL (1.80-7.70); Platelet Count 228 X 10*3/uL (140-440); RBC 3.37 X 10*6/uL (4.40-5.60); RDW 14.2 % (11.5-14.5)
[2024-02-27 11:03] LABS: BUN/Creat Ratio 12.57 Ratio (12.00-20.00); Blood Urea Nitrogen 8.8 mg/dL (9.0-27.0); Carbon Dioxide 23.3 mmol/L (21.6-31.8); Chloride 105 mmol/L (96-109); Glucose 62 mg/dL (70-110); Potassium 3.9 mmol/L (3.5-5.5); Sodium 137 mmol/L (135-145)
[2024-02-27 11:04] LABS: Calcium 8.6 mg/dL (8.7-10.3)
[2024-02-27] MEDS: FAMOTIDINE 20 MG TAB PO SCH (13:48)
[2024-02-27] MEDS: MELATONIN 5 MG TABLET PO SCH (22:05)
[2024-02-28] MEDS ORDERED: LORazepam 1 MG TAB PO PRN (14:51)
--- NOTE | 2024-02-28 14:59 | P.PN ---
Subjective Progress Note Date: 02/28/24 Patient is a 38-year-old male with a past medical history of hepatitis C, pancreatitis, DDD, chronic back pain, hypertension, GERD, anxiety/depression/bipolar and schizophrenia and current everyday smoker and heavy alcohol abuse and marijuana and methamphetamine opiate use was brought to the hospital due to alcohol intoxication. Patient fell on the side of the road. Patient was able to respond with verbal stimuli but intoxicated on admission. CT head showed no acute intracranial process. EKG showed sinus rhythm Laboratory data showed WBC 7.3 hemoglobin 10.7 platelets 230 Sodium 142 potassium 3.4 chloride 101 bicarb is, BUN 8 and creatinine 0.6 and blood sugar 107 lactic acid 2.6 22 Lipase level is 20 Serum alcohol level is 281 02/28/2024 Patient is seen and evaluated in follow-up today maintained on CIWA protocol although has not required any Ativan per nursing staff. Patient is asleep alt tito easily arousable. Patient has been up and eating and drinking with no difficulties and maintained on IV hydration although will discontinue. Will initiate Librium taper. Case management/social work working with legal public guardian as well as inpatient rehab and patient unable to be excepted or have an intake at [facility] until tomorrow 02/29/2024. Will continue monitoring overnight and continue with Ativan as needed with probable discharge in 24 hours. Patient is currently afebrile and denies chest pain or shortness of breath. Patient has been tolerating diet with no reported nausea or vomiting. Review of systems: Constitutional: No reports of fatigue, fever, or chills Cardiovascular: No reports of chest pain or palpitations Respiratory: No reports of shortness of breath or cough GI: No reports of nausea, vomiting, or diarrhea : No reports of dysuria or retention Neurovascular: No reports of weakness or numbness All medications have been reviewed PHYSICAL EXAMINATION: Patient is lying in the bed no acute distress, asleep but easily arousable alert and oriented.. Well-developed, well-nourished, unkempt HEENT: Normocephalic. Neck is supple. Pupils reactive. Nostrils clear. Oral cavity is moist. Neck reveals no JVD, carotid bruits, or thyromegaly. CHEST EXAMINATION: Trachea is central. Symmetrical expansion. Lung peña clear to auscultation and percussion. CARDIAC: Normal S1, S2 with no gallops. No murmurs ABDOMEN: Soft. Bowel sounds normal. No organomegaly. No abdominal bruits. Extremities: reveal no edema. No clubbing or cyanosis Neurologically awake, alert, oriented x 2, baseline able to move all extremities. No gross focal deficits noted Skin: No rash or skin lesions. Psychiatric: Cooperative. Nonsuicidal Musculoskeletal: No joint swelling or deformity. Assessment: Acute alcohol intoxication Status post fall likely secondary to above Lactic acidosis, improved Hypokalemia, replaced and improved History of alcohol abuse and currently drinks 1 pint on occasion Hepatitis C history History of pancreatitis Degenerative disc disease Chronic back pain Bilateral carpal syndrome GERD Anxiety/depression/bipolar and schizophrenia Current everyday smoker History of marijuana and methamphetamine opiate use GI prophylaxis DVT prophylaxis Full code Plan: Patient was continued on IV hydration with improvement in labs. Patient is eati ng and drinking and voiding with no difficulties. Will discontinue hydration Continue with thiamine and multivitamins. Patient is maintained on CIWA protocol although not requiring any Ativan and not actively withdrawing. Patient is a heavy drinker with a known history of multiple hospitalizations with severe withdrawals will add Librium taper and monitor closely Case management/social work following working on discharge planning with legal public guardian and plan is for going to [facility] for intake on 02/29/2024. No bed available this evening for guardian to take for intake appointment. Medications reviewed and resumed as appropriate Possible discharge planning in the next 24 hours The impression and plan of care has been dictated by Marlena Roque, Nurse Practitioner as directed. Dr. Merle MD I have performed a history and examination and MDM of this patient, discussed the same with the dictator, and agree with the dictator's assessment and plan as written ,documented as a scribe. Based on total visit time, I have performed more than 50% of the visit. Objective - Vital Signs Vital signs: Vital Signs Temp 97.8 F 02/28/24 07:00 Pulse 63 02/28/24 08:00 Resp 18 02/28/24 08:00 BP 129/75 02/28/24 07:00 Pulse Ox 100 02/28/24 07:00 FiO2 Intake & Output 02/27/24 02/28/24 02/28/24 18:59 06:59 18:59 Intake Total 1620 240 Balance 1620 240 Intake: Oral 1620 240 Other: Voiding Method Toilet Toilet Toilet # Voids 2 1 - Labs CBC & Chem 7: 02/27/24 05:46 02/27/24 05:46 Labs: Abnormal Lab Results - Last 24 Hours (Table) 02/27/24 02/27/24 Range/Units 05:46 05:46 RBC 3.37 L (4.40-5.60) X 10*6/uL Hgb 9.7 L (13.0-17.0) g/dL Hct 29.7 L (39.6-50.0) % BUN 8.8 L (9.0-27.0) mg/dL Glucose 62 L (70-110) mg/dL Calcium 8.6 L (8.7-10.3) mg/dL
[2024-02-28] MEDS: chlordiazePOXIDE 25 MG CAP PO SCH (15:21)
[2024-02-29 20:36] VITALS: RESP 15
[2024-02-29 23:43] VITALS: PULSE 74
[2024-03-01 03:20] VITALS: BP 100/63; TEMP 97.5
--- NOTE | 2024-03-01 05:06 | P.PN ---
Subjective Progress Note Date: 02/29/24 Patient is a 38-year-old male with a past medical history of hepatitis C, pancreatitis, DDD, chronic back pain, hypertension, GERD, anxiety/depression/bipolar and schizophrenia and current everyday smoker and heavy alcohol abuse and marijuana and methamphetamine opiate use was brought to the hospital due to alcohol intoxication. Patient fell on the side of the road. Patient was able to respond with verbal stimuli but intoxicated on admission. CT head showed no acute intracranial process. EKG showed sinus rhythm Laboratory data showed WBC 7.3 hemoglobin 10.7 platelets 230 Sodium 142 potassium 3.4 chloride 101 bicarb is, BUN 8 and creatinine 0.6 and blood sugar 107 lactic acid 2.6 22 Lipase level is 20 Serum alcohol level is 281 02/28/2024 Patient is seen and evaluated in follow-up today maintained on CIWA protocol although has not required any Ativan per nursing staff. Patient is asleep alt tito easily arousable. Patient has been up and eating and drinking with no difficulties and maintained on IV hydration although will discontinue. Will initiate Librium taper. Case management/social work working with legal public guardian as well as inpatient rehab and patient unable to be excepted or have an intake at [facility] until tomorrow 02/29/2024. Will continue monitoring overnight and continue with Ativan as needed with probable discharge in 24 hours. Patient is currently afebrile and denies chest pain or shortness of breath. Patient has been tolerating diet with no reported nausea or vomiting. 02/29/2024 Patient is seen this morning currently sleeping but easily arousable with no acute overnight issues noted. Patient maintained on CIWA score although not requiring any Ativan. Social work following and plan is for patient to discharge and directly go to inpatient alcohol rehab. Patient per legal guardian now has a court order and they are not available for an intake appointment at [facility] 11/08/2024. No reports of chest pain or palpitations. Patient with no reported nausea or vomiting and tolerating diet. Patient going to the bathroom and walking with no difficulties. Will be discharged to inpatient alcohol rehab. Review of systems: Constitutional: No reports of fatigue, fever, or chills Cardiovascular: No reports of chest pain or palpitations Respiratory: No reports of shortness of breath or cough GI: No reports of nausea, vomiting, or diarrhea : No reports of dysuria or retention Neurovascular: No reports of weakness or numbness All medications have been reviewed PHYSICAL EXAMINATION: Patient is lying in the bed no acute distress, asleep but easily arousable alert and oriented.. Well-developed, well-nourished, unkempt HEENT: Normocephalic. Neck is supple. Pupils reactive. Nostrils clear. Oral cavity is moist. Neck reveals no JVD, carotid bruits, or thyromegaly. CHEST EXAMINATION: Trachea is central. Symmetrical expansion. Lung peña clear to auscultation and percussion. CARDIAC: Normal S1, S2 with no gallops. No murmurs ABDOMEN: Soft. Bowel sounds normal. No organomegaly. No abdominal bruits. Extremities: reveal no edema. No clubbing or cyanosis Neurologically awake, alert, oriented x 2, baseline able to move all extremities. No gross focal deficits noted Skin: No rash or skin lesions. Psychiatric: Cooperative. Nonsuicidal Musculoskeletal: No joint swelling or deformity. Assessment: Acute alcohol intoxication Status post fall likely secondary to above Lactic acidosis, improved Hypokalemia, replaced and improved History of alcohol abuse and currently drinks 1 pint on occasion Hepatitis C history History of pancreatitis Degenerative disc disease Chronic back pain Bilateral carpal syndrome GERD Anxiety/depression/bipolar and schizophrenia Current everyday smoker History of marijuana and methamphetamine opiate use GI prophylaxis DVT prophylaxis Full code Plan: Patient continued on CIWA protocol although has not required Ativan. Will continue with current medication regimen including multivitamin, thiamine, folic acid Encouraged to increase activity as tolerated Encouraged oral intake Patient has been up and walking to the bathroom with no difficulties Patient does have a legal public guardian who is arranging for direct admission to inpatient alcohol rehab. Per social work patient is court ordered for this and earliest date is 03/01/2024 at [facility]. discharge planning in the next 24 hours The impression and plan of care has been dictated by Marlena Roque, Nurse Practitioner as directed. Dr. Merle MD I have performed a history and examination and MDM of this patient, discussed the same with the dictator, and agree with the dictator's assessment and plan as written ,documented as a scribe. Based on total visit time, I have performed more than 50% of the visit. Objective - Vital Signs Vital signs: Vital Signs Temp 98.2 F 02/29/24 07:00 Pulse 74 02/29/24 07:00 Resp 16 02/29/24 07:00 BP 106/66 02/29/24 07:00 Pulse Ox 97 02/29/24 07:00 FiO2 Intake & Output 02/28/24 02/29/24 02/29/24 18:59 06:59 18:59 Intake Total 480 118 Balance 480 118 Intake: Oral 480 118 Other: Voiding Method Toilet Toilet # Voids 1 2 - Labs CBC & Chem 7: 02/27/24 05:46 02/27/24 05:46
--- NOTE | 2024-03-01 07:59 | P.DS ---
Providers Date of admission: 02/26/24 16:23 Expected date of discharge: 03/01/24 Attending physician: Abelardo Potts Primary care physician: Stated None Hospital Course: Final diagnosis Acute alcohol intoxication Status post fall likely secondary to above Lactic acidosis, improved Hypokalemia, replaced and improved History of alcohol abuse and currently drinks 1 pint on occasion Hepatitis C history History of pancreatitis Degenerative disc disease Chronic back pain Bilateral carpal syndrome GERD Anxiety/depression/bipolar and schizophrenia Current everyday smoker History of marijuana and methamphetamine opiate use GI prophylaxis DVT prophylaxis Full code Discharge disposition Patient is being discharged in a stable condition with guarded prognosis to [facility] for inpatient alcohol rehab. Patient will follow-up with primary care provider to establish in the outpatient setting upon discharge. Patient is to continue with Librium taper as scheduled. Total time taken is greater than 35 minutes. Hospital course This is a 38-year-old male who was recently admitted with acute alcohol intoxication with electrolyte abnormalities being closely monitored maintained on CIWA protocol. Patient also on Librium taper and will continue in the outpatient setting. Patient does have a legal guardian and is now court ordered to be discharged directly to inpatient alcohol rehab. Plan is for legal guardian to pick the patient up and bring to [facility] for intake appointment. Patient is medically stable for discharge to rehab today. Currently no reports of chest pain, shortness of breath, or palpitations. Patient is afebrile. No reports of nausea or vomiting and patient is tolerating diet. Patient will be going to [facility] today. Physical exam: Gen: This is a 38-year-old male who is awake, alert and oriented x 3, well- developed, well-nourished, on HEENT: Head is atraumatic, normocephalic. Pupils equal, round. Sclerae is anicteric. NECK: Supple. No JVD. No lymphadenopathy. No thyromegaly. LUNGS: Clear to auscultation. No wheezes or rhonchi. No intercostal retractions. HEART: Regular rate and rhythm. No murmur. ABDOMEN: Soft. Bowel sounds are present. No masses. No tenderness. EXTREMITIES: No pedal edema. No calf tenderness. NEUROLOGICAL: Patient is awake, alert and oriented x3. Cranial nerves 2 through 12 are grossly intact. Please refer to medication reconciliation sheet for a list of medications. The impression and plan of care has been dictated by Marlena Roque, Nurse Practitioner as directed. Dr. Merle MD I have performed a history and examination and MDM of this patient, discussed the same with the dictator, and agree with the dictator's assessment and plan as written ,documented as a scribe. Based on total visit time, I have performed more than 50% of the visit. Patient Condition at Discharge: Fair Plan - Discharge Summary New Discharge Prescriptions: New Famotidine [Pepcid] 20 mg PO BID #60 tab chlordiazePOXIDE HCl [Librium] 25 mg PO TID 3 Days #12 capsule Continue Thiamine [Vitamin B-1] 100 mg PO DAILY 30 Days #30 tab Aspirin 81 mg PO DAILY #30 tab cloNIDine 0.2 MG/24HR PATCH [Catapres-TTS] 1 patch TRANSDERM Q7D 30 Days #3 patch Magnesium Oxide [Mag-Ox] 400 mg PO BID #60 tab amLODIPine [Norvasc] 5 mg PO BID #60 tab Sevelamer [Renvela] 800 mg PO TID-W/MEALS #90 tab buPROPion XL [Wellbutrin XL] 150 mg PO DAILY 30 Days #30 tab Multivitamins, Thera [Multivitamin (formulary)] 1 tab PO DAILY hydrALAZINE HCL [Apresoline] 50 mg PO TID 30 Days #90 tab carvediloL [Coreg] 6.25 mg PO BID-W/MEALS #60 tab Folic Acid 1 mg PO DAILY #30 tab QUEtiapine [SEROquel] 100 mg PO BID 30 Days #60 tab Haloperidol Decanoate [Haldol D] 200 mg IM Q14D Discharge Medication List Thiamine [Vitamin B-1] 100 mg PO DAILY 30 Days #30 tab 12/11/23 [Rx] Aspirin 81 mg PO DAILY #30 tab 01/22/24 [Rx] Folic Acid 1 mg PO DAILY #30 tab 01/22/24 [Rx] Magnesium Oxide [Mag-Ox] 400 mg PO BID #60 tab 01/22/24 [Rx] QUEtiapine [SEROquel] 100 mg PO BID 30 Days #60 tab 01/22/24 [Rx] Sevelamer [Renvela] 800 mg PO TID-W/MEALS #90 tab 01/22/24 [Rx] amLODIPine [Norvasc] 5 mg PO BID #60 tab 01/22/24 [Rx] carvediloL [Coreg] 6.25 mg PO BID-W/MEALS #60 tab 01/22/24 [Rx] cloNIDine 0.2 MG/24HR PATCH [Catapres-TTS] 1 patch TRANSDERM Q7D 30 Days #3 patch 01/22/24 [Rx] hydrALAZINE HCL [Apresoline] 50 mg PO TID 30 Days #90 tab 01/22/24 [Rx] buPROPion XL [Wellbutrin XL] 150 mg PO DAILY 30 Days #30 tab 02/02/24 [Rx] Haloperidol Decanoate [Haldol D] 200 mg IM Q14D 02/26/24 [History] Multivitamins, Thera [Multivitamin (formulary)] 1 tab PO DAILY 02/26/24 [History] Famotidine [Pepcid] 20 mg PO BID #60 tab 02/28/24 [Rx] chlordiazePOXIDE HCl [Librium] 25 mg PO TID 3 Days #12 capsule 02/28/24 [Rx] Follow up Appointment(s)/Referral(s): None,Stated [Primary Care Provider] - 1-2 days Activity/Diet/Wound Care/Special Instructions: Patient is going to [facility] Activity as tolerated Patient needs to establish with a primary care provider outpatient Continue taking medications as prescribed Discharge Disposition: OTHER INSTITUTION NOT DEFINED
== END 2024-03-01 09:20 | disposition other institution (70) ==
LOC: EC 12:54 → 6NMEDSUR 16:23
PROVIDERS: ADMIT Hospitalist; ATTEND Hospitalist
DX: F10.229 Alcohol dependence with intoxication, unspecified (principal); K21.9 Gastro-esophageal reflux disease without esophagitis; I10 Essential (primary) hypertension; F31.9 Bipolar disorder, unspecified; F41.9 Anxiety disorder, unspecified; E87.20 Acidosis, unspecified; E87.6 Hypokalemia; F20.9 Schizophrenia, unspecified; G89.29 Other chronic pain; M54.9 Dorsalgia, unspecified; G56.03 Carpal tunnel syndrome, bilateral upper limbs; F17.200 Nicotine dependence, unspecified, uncomplicated; Y90.8 Blood alcohol level of 240 mg/100 ml or more; Z86.19 Personal history of other infectious and parasitic diseases; Z91.81 History of falling; Z79.82 Long term (current) use of aspirin; Z79.899 Other long term (current) drug therapy
CPT/HCPCS: 96361 ×2; 96365; 96366 ×2; 96372 ×3; 99285; 36415; 93005; 80053; 80048; 83605; 83690; 83735; 84484; 85025 ×2; 85610; 85730; 70450; G0378 ×5; G0480; J1644 ×3; J3480; 80320

== ENCOUNTER 2024-04-24 07:57 | Observation (INO) | payer OTHER ==
[2024-04-24 08:51] LABS: Basophils # (A) 0.1 k/uL (0-0.2); Basophils % (A) 1 %; Eosinophils # (A) 0.1 k/uL (0-0.7); Eosinophils % (A) 1 %; HCT 42.6 % (39.0-53.0); Lymphocytes # (A) 1.8 k/uL (1.0-4.8); Lymphocytes % (A) 30 %; MCH 27.6 pg (25.0-35.0); MCHC 33.1 g/dL (31.0-37.0); MCV 83.4 fL (80.0-100.0); Mean Platelet Volume 9.9; Monocytes # (A) 0.3 k/uL (0-1.0); Monocytes % (A) 6 %; Neutrophils # (A) 3.6 k/uL (1.3-7.7); Neutrophils % (A) 59 %; Platelet Count 201 k/uL (150-450); RBC 5.11 m/uL (4.30-5.90); RDW 13.7 % (11.5-15.5); WBC 6.1 k/uL (3.8-10.6)
--- NOTE | 2024-04-24 08:53 | ED ---
General Adult HPI - General Chief complaint: Alcohol Stated complaint: ETOH Time Seen by Provider: 04/24/24 08:11 Source: EMS Mode of arrival: EMS Limitations: no limitations - History of Present Illness Initial comments: Dictation was produced using [employer] dictation software. please excuse any grammatical, word or spelling errors. Chief Complaint: 38-year-old male presents emergency department for alcohol intoxication History of Present Illness: Patient 38-year-old male presents emergency department for alcohol intoxication. Patient just got out of residential. States that he had some alcohol and use of meth. Found sleeping in the grass by bystanders. EMS was contacted patient was brought to the ER. Patient states that he feels anxious at the bedside he has no pain complaints. Patient states that he did drink 3 beers. The ROS documented in this emergency department record has been reviewed and confirmed by me. Those systems with pertinent positive or negative responses have been documented in the HPI. All other systems are other negative and/or noncontributory. - Related Data Home Medications Medication Instructions Recorded Confirmed Haloperidol Decanoate [Haldol D] 200 mg IM Q14D 02/26/24 02/26/24 Multivitamins, Thera [Multivitamin 1 tab PO DAILY 02/26/24 02/26/24 (formulary)] Previous Rx's Medication Instructions Recorded Thiamine [Vitamin B-1] 100 mg PO DAILY 30 Days #30 tab 12/11/23 Aspirin 81 mg PO DAILY #30 tab 01/22/24 Folic Acid 1 mg PO DAILY #30 tab 01/22/24 Magnesium Oxide [Mag-Ox] 400 mg PO BID #60 tab 01/22/24 QUEtiapine [SEROquel] 100 mg PO BID 30 Days #60 tab 01/22/24 Sevelamer [Renvela] 800 mg PO TID-W/MEALS #90 tab 01/22/24 amLODIPine [Norvasc] 5 mg PO BID #60 tab 01/22/24 carvediloL [Coreg] 6.25 mg PO BID-W/MEALS #60 tab 01/22/24 cloNIDine 0.2 MG/24HR PATCH 1 patch TRANSDERM Q7D 30 Days #3 01/22/24 [Catapres-TTS] patch hydrALAZINE HCL [Apresoline] 50 mg PO TID 30 Days #90 tab 01/22/24 buPROPion XL [Wellbutrin XL] 150 mg PO DAILY 30 Days #30 tab 02/02/24 Famotidine [Pepcid] 20 mg PO BID #60 tab 02/28/24 chlordiazePOXIDE HCl [Librium] 25 mg PO TID #6 capsule 03/01/24 Allergies Allergy/AdvReac Type Severity Reaction Status Date / Time flea Allergy Rash/Hives Uncoded 04/24/24 08:04 Review of Systems ROS Statement: Those systems with pertinent positive or pertinent negative responses have been documented in the HPI. ROS Other: All systems not noted in ROS Statement are negative. Past Medical History Past Medical History: GERD/Reflux, Hypertension, Liver Disease, Skin Disorder Additional Past Medical History / Comment(s): Hepatitis C, Pancreatitis, DDD, back pain, bilateral carpel tunnel syndrome. In the past has reported that he has heart disease that was found when he had kidney problems but he denies having a stress test or cardiac catheterization. History of Any Multi-Drug Resistant Organisms: None Reported MDRO Source:: unknown Past Surgical History: No Surgical Hx Reported, Unable to Obtain Additional Past Surgical History / Comment(s): Pt states he has had numerous "cysts" removed from where he injected IV drugs. Past Anesthesia/Blood Transfusion Reactions: No Reported Reaction, Unable to Obtain Additional Past Anesthesia/Blood Transfusion Reaction / Comment(s): In the past pt reported that he has never had surgery Past Psychological History: Anxiety, Bipolar, Depression, Schizophrenia Smoking Status: Current every day smoker Past Alcohol Use History: Abuse, Heavy Past Drug Use History: Marijuana, Methamphetamine, Opiates - Past Family History Mother Family Medical History: Unable to Obtain, Rheumatoid Arthritis (RA) Additional Family Medical History / Comment(s): Mother is . Father Family Medical History: Coronary Artery Disease (CAD) General Exam - General Exam Comments Initial Comments: PHYSICAL EXAM: General Impression: Alert and oriented x3, not in acute distress, inebriated HEENT: Normocephalic atraumatic, extra-ocular movements intact, pupils equal and reactive to light bilaterally, mucous membranes moist. Cardiovascular: Heart regular rate and rhythm Chest: Able to complete full sentences, no retractions, no tachypnea Abdomen: abdomen soft, non-tender, non-distended, no organomegaly Musculoskeletal: Pulses present and equal in all extremities, no peripheral edema Motor: no focal deficits noted Neurological: CN II-XII grossly intact, no focal motor or sensory deficits noted Skin: Intact with no visualized rashes Psych: Normal affect and mood Limitations: no limitations Course Vital Signs 04/24/24 04/24/24 07:59 10:31 Temperature 98 F Pulse Rate 87 70 Respiratory 18 18 Rate Blood Pressure 127/87 123/86 O2 Sat by Pulse 98 99 Oximetry EKG Findings - EKG Comments: EKG Findings:: My EKG interpretation: Ventricular rate 75, sinus rhythm,. 145, QRS 113, QTc 425. No UT prolongation, no QTC prolongation, no ST or T-wave changes noted. Overall, this EKG is unremarkable Medical Decision Making - Medical Decision Making Was pt. sent in by a medical professional or institution (, PA, ROUTE MANAGER, urgent care, hospital, or skilled nursing...) When possible be specific @ -No Did you speak to anyone other than the patient for history (EMS, parent, family, police, friend...)? What history was obtained from this source @ -No Did you review nursing and triage notes (agree or disagree)? Why? @ -I reviewed and agree with nursing and triage notes Were old charts reviewed (outside hosp., previous admission, EMS record, old EKG, old radiological studies, urgent care reports/EKG's, skilled nursing records)? Report findings @ -No old charts were reviewed Differential Diagnosis (chest pain, altered mental status, abdominal pain women, abdominal pain men, vaginal bleeding, musculoskeletal, weakness, fever, dyspnea, syncope, headache, dizziness, GI bleed, back pain, seizure, CVA, palpatations, mental health)? @ -Differential Altered Mental Status: Hypoglycemia, DKA, hypercapnia, ETOH, overdose, CO poisoning, trauma, myxedema coma, HTN encephalopathy, infection, encephalitis, psychosis, intercranial hemorrhage, hepatic encephalopathy, meningitis, CVA, this is not meant to be an all-inclusive list EKG interpreted by me (3pts min.). @ -None done X-rays interpreted by me (1pt min.). @ -None done CT interpreted by me (1pt min.). @ -None done U/S interpreted by me (1pt. min.). @ -None done What testing was considered but not performed or refused? (CT, X-rays, U/S, labs)? Why? @ -None What meds were considered but not given or refused? Why? @ -None Did you discuss the management of the patient with other professionals (professionals i.e. , PA, ROUTE MANAGER, lab, RT, psych nurse, social security assessor, divorce lawyer, teacher, light armored reconnaissance officer, case worker)? Give summary @ -Case discussed with hospitalist for admission Was smoking cessation discussed for >3mins.? @ -No Was critical care preformed (if so, how long)? @ -No Were there social determinants of health that impacted care today? How? (Home lessness, low income, unemployed, alcoholism, drug addiction, transportation, low edu. Level, literacy, decrease access to med. care, residential, rehab)? @ -No Was there de-escalation of care discussed even if they declined (Discuss DNR or withdrawal of care, Hospice)? DNR status @ -No What co-morbidities impacted this encounter? (DM, HTN, Smoking, COPD, CAD, Cancer, CVA, ARF, Chemo, Hep., AIDS, mental health diagnosis, sleep apnea, morbid obesity)? @ -None Was patient admitted / discharged? Hospital course, mention meds given and route, prescriptions, significant lab abnormalities, going to OR and other pertinent info. @ -38-year-old male presents emergency department with alcohol intoxication. Vital signs upon arrival are within acceptable limits. Laboratory evaluation shows alcohol level of 263. Rest of labs within acceptable limits. Patient does not have a home or family that can come pick him up. Patient will be admitted for alcohol intoxication. Pending sobriety Undiagnosed new problem with uncertain prognosis? @ -No Drug Therapy requiring intensive monitoring for toxicity (Heparin, Nitro, Insulin, Cardizem)? @ -No Were any procedures done? @ -No Diagnosis/symptom? Acute, or Chronic, or Acute on Chronic? Uncomplicated (without systemic symptoms) or Complicated (systemic symptoms)? @ -Alcohol intoxication Side effects of treatment? @ -No Exacerbation, Progression, or Severe Exacerbation? @ -No Poses a threat to life or bodily function? How? (Chest pain, [place], [place], pneumonia, PE, COPD, DKA, ARF, appy, cholecystitis, CVA, Diverticulitis, Homicidal, Suicidal, threat to staff... and all critical care pts) @ -No - Lab Data Result diagrams: 04/24/24 08:28 04/24/24 08:28 Lab Results 04/24/24 04/24/24 04/24/24 Range/Units 08:28 08:28 08:28 WBC 6.1 (3.8-10.6) k/uL RBC 5.11 (4.30-5.90) m/uL Hgb 14.1 D (13.0-17.5) gm/dL Hct 42.6 (39.0-53.0) % MCV 83.4 (80.0-100.0) fL MCH 27.6 (25.0-35.0) pg MCHC 33.1 (31.0-37.0) g/dL RDW 13.7 (11.5-15.5) % Plt Count 201 (150-450) k/uL MPV 9.9 Neutrophils % 59 % Lymphocytes % 30 % Monocytes % 6 % Eosinophils % 1 % Basophils % 1 % Neutrophils # 3.6 (1.3-7.7) k/uL Lymphocytes # 1.8 (1.0-4.8) k/uL Monocytes # 0.3 (0-1.0) k/uL Eosinophils # 0.1 (0-0.7) k/uL Basophils # 0.1 (0-0.2) k/uL Sodium 146 H (137-145) mmol/L Potassium 3.8 (3.5-5.1) mmol/L Chloride 114 H (98-107) mmol/L Carbon Dioxide 21 L (22-30) mmol/L Anion Gap 11 mmol/L BUN 9 (9-20) mg/dL Creatinine 0.84 (0.66-1.25) mg/dL Est GFR (CKD-EPI)AfAm >90 (>60 ml/min/1.73 sqM) Est GFR (CKD-EPI)NonAf >90 (>60 ml/min/1.73 sqM) Glucose 98 (74-99) mg/dL Calcium 9.1 (8.4-10.2) mg/dL Total Bilirubin 0.6 (0.2-1.3) mg/dL AST 30 (17-59) U/L ALT 12 (4-49) U/L Alkaline Phosphatase 46 (38-126) U/L Total Protein 7.5 (6.3-8.2) g/dL Albumin 4.6 (3.5-5.0) g/dL Urine Opiates Screen Not Detected (NotDetected) Ur Oxycodone Screen Not Detected (NotDetected) Urine Methadone Screen Not Detected (NotDetected) Ur Barbiturates Screen Not Detected (NotDetected) U Tricyclic Antidepress Not Detected (NotDetected) Ur Phencyclidine Scrn Not Detected (NotDetected) Ur Amphetamines Screen Detected H (NotDetected) U Methamphetamines Scrn Detected H (NotDetected) U Benzodiazepines Scrn Not Detected (NotDetected) Urine Cocaine Screen Not Detected (NotDetected) U Marijuana (THC) Screen Detected H (NotDetected) Serum Alcohol 263 H* mg/dL Disposition Clinical Impression: Intoxication Disposition: ADMITTED IP TO THIS [facility] Condition: Fair Referrals: None,Stated [Primary Care Provider] - 1-2 days Decision Time: 11:01
[2024-04-24 08:57] LABS: ALT 12 U/L (4-49); AST 30 U/L (17-59); African American GFR (CKD) >90 (>60 ml/min/1.73 sqM); Albumin 4.6 g/dL (3.5-5.0); Alkaline Phosphatase 46 U/L (38-126); Anion Gap 11 mmol/L; Blood Urea Nitrogen 9 mg/dL (9-20); Calcium 9.1 mg/dL (8.4-10.2); Carbon Dioxide 21 mmol/L (22-30); Chloride 114 mmol/L (98-107); Glucose 98 mg/dL (74-99); Non-African American GFR(CKD) >90 (>60 ml/min/1.73 sqM); Potassium 3.8 mmol/L (3.5-5.1); Sodium 146 mmol/L (137-145); Total Bilirubin 0.6 mg/dL (0.2-1.3); Total Protein 7.5 g/dL (6.3-8.2)
[2024-04-24 09:00] LABS: Amphetamine Screen,Urine Detected (NotDetected); Barbiturate Screen,Urine Not Detected (NotDetected); Benzodiazepines Screen,Urine Not Detected (NotDetected); Cocaine Screen,Urine Not Detected (NotDetected); Methadone Screen, Urine Not Detected (NotDetected); Opiate Screen,Urine Not Detected (NotDetected); Oxycodone Screen, Urine Not Detected (NotDetected); Phencyclidine Screen,Urine Not Detected (NotDetected); Tricyclic Antidepressant,Urine Not Detected (NotDetected); Urn Cannabinoid Scrn Detected (NotDetected)
[2024-04-24 09:17] LABS: HGB 14.1 gm/dL (13.0-17.5)
[2024-04-24 09:25] LABS: Alcohol 263 mg/dL
[2024-04-24] MEDS ORDERED: NALOXONE 0.4 MG/ML 1 ML VIAL IV PRN (10:58)
--- NOTE | 2024-04-24 11:11 | P.HPIM ---
History of Present Illness H&P Date: 04/24/24 Chief Complaint: Withdrawal symptoms This is a 38-year-old white male who reported to the hospital because of intoxication/withdrawal. He states that he has been cutting down on drinking alcohol and has been feeling symptoms of withdrawal including anxiety nausea but no vomiting and no diarrhea. He reports tremors. He denies chest pain, no shortness of breath. He just got out of [facility] was found sleeping on the grass. He states that he tried IV methamphetamine. Currently patient is in bed, appears to be anxious but does not appear to be in distress. He states that he has been in alcohol withdrawals before. Review of Systems 10 systems reviewed, pertinent positive and negative findings as in HPI. Tremors anxiety, no chest pain no abdominal pain. Past Medical History Past Medical History: GERD/Reflux, Hypertension, Liver Disease, Skin Disorder Additional Past Medical History / Comment(s): Hepatitis C, Pancreatitis, DDD, back pain, bilateral carpel tunnel syndrome. In the past has reported that he has heart disease that was found when he had kidney problems but he denies having a stress test or cardiac catheterization. History of Any Multi-Drug Resistant Organisms: None Reported MDRO Source:: unknown Past Surgical History: No Surgical Hx Reported, Unable to Obtain Additional Past Surgical History / Comment(s): Pt states he has had numerous "cysts" removed from where he injected IV drugs. Past Anesthesia/Blood Transfusion Reactions: No Reported Reaction, Unable to Obtain Additional Past Anesthesia/Blood Transfusion Reaction / Comment(s): In the past pt reported that he has never had surgery Past Psychological History: Anxiety, Bipolar, Depression, Schizophrenia Smoking Status: Current every day smoker Past Alcohol Use History: Abuse, Heavy Past Drug Use History: Marijuana, Methamphetamine, Opiates - Past Family History Mother Family Medical History: Unable to Obtain, Rheumatoid Arthritis (RA) Additional Family Medical History / Comment(s): Mother is . Father Family Medical History: Coronary Artery Disease (CAD) Medications and Allergies Home Medications Medication Instructions Recorded Confirmed Type Thiamine [Vitamin B-1] 100 mg PO DAILY 30 Days #30 tab 12/11/23 02/26/24 Rx Aspirin 81 mg PO DAILY #30 tab 01/22/24 02/26/24 Rx Folic Acid 1 mg PO DAILY #30 tab 01/22/24 02/26/24 Rx Magnesium Oxide [Mag-Ox] 400 mg PO BID #60 tab 01/22/24 02/26/24 Rx QUEtiapine [SEROquel] 100 mg PO BID 30 Days #60 tab 01/22/24 02/26/24 Rx Sevelamer [Renvela] 800 mg PO TID-W/MEALS #90 tab 01/22/24 02/26/24 Rx amLODIPine [Norvasc] 5 mg PO BID #60 tab 01/22/24 02/26/24 Rx carvediloL [Coreg] 6.25 mg PO BID-W/MEALS #60 tab 01/22/24 02/26/24 Rx cloNIDine 0.2 MG/24HR PATCH 1 patch TRANSDERM Q7D 30 Days #3 01/22/24 02/26/24 Rx [Catapres-TTS] patch hydrALAZINE HCL [Apresoline] 50 mg PO TID 30 Days #90 tab 01/22/24 02/26/24 Rx buPROPion XL [Wellbutrin XL] 150 mg PO DAILY 30 Days #30 tab 02/02/24 02/26/24 Rx Haloperidol Decanoate [Haldol D] 200 mg IM Q14D 02/26/24 02/26/24 History Multivitamins, Thera [Multivitamin 1 tab PO DAILY 02/26/24 02/26/24 History (formulary)] Famotidine [Pepcid] 20 mg PO BID #60 tab 02/28/24 Rx chlordiazePOXIDE HCl [Librium] 25 mg PO TID #6 capsule 03/01/24 Rx Allergies Allergy/AdvReac Type Severity Reaction Status Date / Time flea Allergy Rash/Hives Uncoded 04/24/24 08:04 Physical Exam Vitals: Vital Signs Temp Pulse Resp BP Pulse Ox 04/24/24 10:31 70 18 123/86 99 04/24/24 07:59 98 F 87 18 127/87 98 Intake and Output 04/23/24 04/24/24 04/24/24 22:59 06:59 14:59 Other: Weight 77.111 kg Constitutional: No acute distress, conversant, pleasant Eyes: Anicteric sclerae, moist conjunctiva, no lid-lag, PERRLA ENMT: NC/AT,Oropharynx clear, no erythema, exudates Neck:Supple, FROM, no masses, or JVD, No carotid bruits; No thyromegaly Lungs: Clear to auscultation, Clear to percussion, Normal respiratory effort, no accessory muscle use Cardiovascular: Heart regular in rate and rhythm, No murmurs, gallops, or rubs no peripheral edema Abdominal: Soft Nontender, non distended, no guarding, no rebound or rigidity, Normoactive bowel sounds No hepatomegaly, No splenomegaly, No palpable mass No abdominal wall hernia noted Skin: Normal temperature, tone, texture, turgor, No induration No subcutaneous nodules, No rash, lesions, No ulcers Extremities:No digital cyanosis No clubbing, Pedal pulses intact and symmetrical Radial pulses intact and symmetrical Normal gait and station, No calf tenderness Psychiatric: Alert and oriented to person, place and time, anxiety. Neuro: Muscles Strength 5/5 in all 4 extremities, Sensation to light touch grossly present throughout, Cranial nerves II-XII grossly intact. No focal sensory deficits Results CBC & Chem 7: 04/24/24 08:28 04/24/24 08:28 Labs: Abnormal Lab Results - Last 24 Hours (Table) 04/24/24 04/24/24 Range/Units 08:28 08:28 Sodium 146 H (137-145) mmol/L Chloride 114 H (98-107) mmol/L Carbon Dioxide 21 L (22-30) mmol/L Ur Amphetamines Screen Detected H (NotDetected) U Methamphetamines Scrn Detected H (NotDetected) U Marijuana (THC) Screen Detected H (NotDetected) Serum Alcohol 263 H* mg/dL Assessment and Plan Plan: Assessment and plan: 1. Alcohol intoxication/withdrawals: Placed on CIWA protocol, Ativan as indicated. Supportive care. He is willing to quit, case management will assist. 2. Methamphetamine use: Supportive care. 3. Marijuana use: Supportive care. 4. Tobacco use/dependence without evidence of withdrawal: Supportive care. 5. History of chronic hepatitis C: Follow-up as an outpatient. 6. History of cardiac disease unspecified: Follow-up as an outpatient. Admit inpatient Disposition alcohol rehab in the next 2 to 3 days pending clinical progression
[2024-04-24] MEDS ORDERED: LORazepam 2 MG/ML INJ IV PRN ×3 (13:35)
[2024-04-24] MEDS ORDERED: ONDANSETRON 4 MG/2 ML VIAL IVP PRN (13:38)
[2024-04-24] MEDS: NICOTINE 21MG/24HR PATCH TRANSDERM STA (13:56)
[2024-04-24] MEDS: DEXTROSE 5%-0.45% NACL 1,000 ML IV SCH (14:00)
[2024-04-24] MEDS ORDERED: THIAMINE 250 MG in SODIUM CHLORIDE 0.9% 50 ML IVPB SCH (16:00)
[2024-04-24 17:32] VITALS: RESP 16
[2024-04-24] MEDS: LORazepam 1 MG TAB PO PRN (17:35)
[2024-04-24] MEDS ORDERED: LORazepam 1 MG/0.5 ML VIAL IV PRN ×2 (18:14)
[2024-04-24] MEDS: LORazepam 1 MG/0.5 ML VIAL IV PRN (19:59)
[2024-04-24] MEDS: IBUPROFEN 200 MG TAB PO STA (21:47)
[2024-04-25] MEDS: LORazepam 0.5 MG TAB PO PRN (00:51)
[2024-04-25 06:15] LABS: Basophils # (A) 0.1 k/uL (0-0.2); Basophils % (A) 1 %; Eosinophils # (A) 0.3 k/uL (0-0.7); Eosinophils % (A) 4 %; HGB 12.9 gm/dL (13.0-17.5); Lymphocytes # (A) 1.9 k/uL (1.0-4.8); Lymphocytes % (A) 33 %; MCH 28.4 pg (25.0-35.0); MCHC 32.9 g/dL (31.0-37.0); MCV 86.2 fL (80.0-100.0); Mean Platelet Volume 9.4; Monocytes # (A) 0.5 k/uL (0-1.0); Monocytes % (A) 8 %; Neutrophils # (A) 2.9 k/uL (1.3-7.7); Neutrophils % (A) 51 %; Platelet Count 189 k/uL (150-450); RBC 4.53 m/uL (4.30-5.90); RDW 13.9 % (11.5-15.5); WBC 5.8 k/uL (3.8-10.6)
[2024-04-25 06:43] LABS: ALT 11 U/L (4-49); AST 23 U/L (17-59); African American GFR (CKD) >90 (>60 ml/min/1.73 sqM); Albumin 3.7 g/dL (3.5-5.0); Albumin/Globulin Ratio 1.5; Alkaline Phosphatase 45 U/L (38-126); Anion Gap 10 mmol/L; Blood Urea Nitrogen 12 mg/dL (9-20); Carbon Dioxide 20 mmol/L (22-30); Chloride 110 mmol/L (98-107); Globulin 2.5 g/dL; Glucose 79 mg/dL (74-99); Magnesium 1.8 mg/dL (1.6-2.3); Non-African American GFR(CKD) >90 (>60 ml/min/1.73 sqM); Sodium 140 mmol/L (137-145); Total Bilirubin 0.5 mg/dL (0.2-1.3); Total Protein 6.2 g/dL (6.3-8.2)
--- NOTE | 2024-04-25 11:49 | P.DS ---
Providers Date of admission: 04/24/24 10:58 Expected date of discharge: 04/25/24 Attending physician: Nilson Pang MD Primary care physician: Stated None Hospital Course: Discharge Diagnosis: Alcohol withdraw in active alcoholic Acute alcohol intoxication in active alcoholic upon admission Hyperchloremic hypernatremia Non anion gap metabolic acidosis Polysubstance abuse Schizoaffective disorder Bipolar disorder Hospital Course: Patient is a 38-year-old male with a past medical history of alcoholism, polysubstance abuse, and schizoaffective disorder. He is well-known to our services secondary to multiple recurrent admissions for alcohol/substance abuse and mental health disorders. He presented to the emergency department on 04/24/2024 with alcohol intoxication and reports that he was exhibiting symptoms of withdrawal. Upon arrival to our facility patient underwent evaluation in the emergency department. Vital signs upon arrival show blood pressure 127/87, heart rate 87, respiratory rate 18, temp 98.0 F, and SpO2 of 98% on room air. EKG was completed showing normal sinus rhythm at 75 bpm. Labs were completed and reviewed. CBC unremarkable. BMP showing hyperchloremic hypernatremia with sodium of 146, chloride 114, bicarb of 21 with anion gap of 11. Liver profile normal findings. Urine drug screen positive for amphetamines, methamphetamines, and marijuana. Serum alcohol level 263. Patient was admitted under our services for alcohol withdraw and medical detox. Patient received IV fluid hydration. Repeat morning labs show resolution of hyperchloremic hypernatremia and no significant abnormalities. Patient is medically stable at this time and cleared from medical perspective for discharge. Patient strongly encouraged to avoid any and all alcohol and drug use. This was discussed in lengthy detail at bedside with patient. Patient provided with outpatient resources available to him including inpatient substance abuse facilities, local shelters, and counseling facilities. Patient reports he will follow-up with [facility]. Physical examination: Patient seen and examined at bedside. Vital signs reviewed and stable. General: Nontoxic, no distress and appears stated age. Derm: Skin warm and dry, normal coloration for ethnicity. Head: Atraumatic, normocephalic and symmetric. Eyes: EOMs intact, no lid lag, and anicteric sclera Mouth: no lip lesions, mucus membranes moist Cardiovascular: regular rate and rhythm with normal S1S2, no murmur, positive posterior tibial pulses bilaterally, and cap refill < 2 seconds. Lungs: Respirations even, regular, and unlabored on room air. Lungs CTA bilaterally, no rhonchi, no rales, no wheezing, and no accessory muscle usage. Abdominal: soft, nontender to palpation, no guarding, no appreciable organomegaly Ext: ROM intact. No gross muscle atrophy, no edema, no contractures Neuro: Speech clear, face symmetrical and CN II-XII grossly intact with no noted focal neuro deficits Psych: Alert and oriented to person, place, time, and situation. Appropriate and pleasant affect. A total of 31 minutes of time were spent preparing this complex discharge summary. Pt was discharged on 04/25/2024 at 11:45 AM. Patient was seen independently by Nurse Practitioner. This document was prepared using [employer] dictation software. Please allow for errors in [employer]fuels production associate while rare they do occur. John Breaux NP rendered care for this patient independently, reviewed the findings and plan as documented in the note above. I did not physically speak with or examine the patient on this date. Patient Condition at Discharge: Stable Plan - Discharge Summary Discharge Rx Participant: No New Discharge Prescriptions: Continue Benztropine Mesylate [Cogentin] 1 mg PO BID Mirtazapine [Remeron] 15 mg PO HS Discharge Medication List Benztropine Mesylate [Cogentin] 1 mg PO BID 04/24/24 [History] Mirtazapine [Remeron] 15 mg PO HS 04/24/24 [History] Follow up Appointment(s)/Referral(s): None,Stated [Primary Care Provider] - 1-2 days Patient Instructions/Handouts: Abuse of Alcohol (DC), Alcohol Withdrawal (DC), Polysubstance Abuse (ED) Discharge/Stand Alone Forms: AA Meetings [place], [facility] Shelters, Outpatient Counseling, Inp Substance Abuse Facilities Discharge Disposition: HOME SELF-CARE
[2024-04-25 12:19] VITALS: BP 114/74; PULSE 65; TEMP 98.7
[2024-04-25] MEDS: FOLIC ACID 1 MG TAB PO SCH (12:32)
[2024-04-25] MEDS: MULTIVITAMINS, THERA 1 EACH TAB PO SCH (12:32)
[2024-04-25] MEDS: THIAMINE 100 MG TAB PO SCH (12:32)
== END 2024-04-25 12:37 | disposition home or self-care (01) ==
LOC: EC 07:57 → 5NMEDONC 10:58
PROVIDERS: ADMIT Student in an Organized Health Care Education/Training Program; ATTEND Student in an Organized Health Care Education/Training Program
DX: F10.229 Alcohol dependence with intoxication, unspecified (principal); F10.239 Alcohol dependence with withdrawal, unspecified; E87.0 Hyperosmolality and hypernatremia; E87.20 Acidosis, unspecified; B18.2 Chronic viral hepatitis C; F25.9 Schizoaffective disorder, unspecified; F31.9 Bipolar disorder, unspecified; F15.10 Other stimulant abuse, uncomplicated; F12.10 Cannabis abuse, uncomplicated; F17.200 Nicotine dependence, unspecified, uncomplicated; Y90.8 Blood alcohol level of 240 mg/100 ml or more; Z79.82 Long term (current) use of aspirin; Z79.899 Other long term (current) drug therapy; Z91.038 Other insect allergy status
CPT/HCPCS: 96374; 99285; 36415; 93005; 80053 ×2; 83735; 85025 ×2; 80306; 80320; G0378 ×2; S4990; J2060

== ENCOUNTER 2024-04-26 09:09 | Observation (INO) | payer OTHER ==
--- NOTE | 2024-04-26 10:32 | ED ---
General Adult HPI - General Chief complaint: Altered Mental Status Stated complaint: AMS Time Seen by Provider: 04/26/24 09:20 Source: patient, EMS, RN notes reviewed, old records reviewed Mode of arrival: EMS - History of Present Illness Initial comments: This is a 38-year-old male who presents to the emergency department complaining that he is here for alcohol abuse. Patient states he drank too much and is just too drunk to go to rehab. Patient denies any chest pain difficulty breathing shortness of breath. Patient has any recent fever chills or cough or patient has abdominal pain patient has nausea vomiting diarrhea. Patient denies any drug use. - Related Data Home Medications Medication Instructions Recorded Confirmed Benztropine Mesylate [Cogentin] 1 mg PO BID 04/24/24 04/26/24 Mirtazapine [Remeron] 15 mg PO HS 04/24/24 04/26/24 Allergies Allergy/AdvReac Type Severity Reaction Status Date / Time flea Allergy Rash/Hives Uncoded 04/26/24 12:41 Review of Systems ROS Statement: Those systems with pertinent positive or pertinent negative responses have been documented in the HPI. ROS Other: All systems not noted in ROS Statement are negative. Past Medical History Past Medical History: GERD/Reflux, Hypertension, Liver Disease, Skin Disorder Additional Past Medical History / Comment(s): Hepatitis C, Pancreatitis, DDD, back pain, bilateral carpel tunnel syndrome. In the past has reported that he has heart disease that was found when he had kidney problems but he denies having a stress test or cardiac catheterization. History of Any Multi-Drug Resistant Organisms: None Reported MDRO Source:: unknown Past Surgical History: No Surgical Hx Reported, Unable to Obtain Additional Past Surgical History / Comment(s): Pt states he has had numerous "cy sts" removed from where he injected IV drugs. Past Anesthesia/Blood Transfusion Reactions: No Reported Reaction, Unable to Obtain Additional Past Anesthesia/Blood Transfusion Reaction / Comment(s): In the past pt reported that he has never had surgery Past Psychological History: Anxiety, Bipolar, Depression, Schizophrenia Smoking Status: Current every day smoker Past Alcohol Use History: Abuse, Heavy Past Drug Use History: Marijuana, Methamphetamine, Opiates - Past Family History Mother Family Medical History: Unable to Obtain, Rheumatoid Arthritis (RA) Additional Family Medical History / Comment(s): Mother is . Father Family Medical History: Coronary Artery Disease (CAD) General Exam - General Exam Comments Initial Comments: GENERAL: Patient is well-developed and well-nourished. Patient is in no acute distress. Patient does appear highly intoxicated and lethargic ENT: Neck is soft and supple. No significant lymphadenopathy is noted. Oropharynx is clear. Moist mucous membranes. Neck has full range of motion without eliciting any pain. EYES: The sclera were anicteric and conjunctiva were pink and moist. Extraocular movements were intact and pupils were equal round and reactive to light. Eyelids were unremarkable. PULMONARY: Unlabored respirations. Good breath sounds bilaterally. No audible rales rhonchi or wheezing was noted. CARDIOVASCULAR: There is a regular rate and rhythm without any murmurs gallops or rubs. ABDOMEN: Soft and nontender with normal bowel sounds. SKIN: Skin is clear with no lesions or rashes and otherwise unremarkable. NEUROLOGIC: Patient is alert and oriented x3. Cranial nerves II through XII are grossly intact. Motor and sensory are also intact. Normal speech, volume and content. Symmetrical smile. MUSCULOSKELETAL: Normal extremities with adequate strength and full range of motion. LYMPHATICS: No significant lymphadenopathy is noted PSYCHIATRIC: Normal psychiatric evaluation. Course Vital Signs 04/26/24 04/26/24 04/26/24 09:10 10:17 10:57 Temperature 98.0 F 97.9 F 98.0 F Pulse Rate 98 98 100 Respiratory 18 20 20 Rate Blood Pressure 141/104 150/110 135/101 O2 Sat by Pulse 97 99 98 Oximetry 04/26/24 12:06 Temperature 97.8 F Pulse Rate 107 H Respiratory 18 Rate Blood Pressure O2 Sat by Pulse 98 Oximetry Medical Decision Making - Medical Decision Making EKG is interpreted by myself. EKG shows sinus rhythm at 94 bpm parable 131 QRS is 97 QT interval 336 QTc is 388. Patient's EKG shows no ST segment ovation or depression. Was pt. sent in by a medical professional or institution (, PA, CONTROLLER MECHANIC, urgent care, hospital, or residential...) When possible be specific @ -No Did you speak to anyone other than the patient for history (EMS, parent, family, police, friend...)? What history was obtained from this source @ -No Did you review nursing and triage notes (agree or disagree)? Why? @ -I reviewed and agree with nursing and triage notes Were old charts reviewed (outside hosp., previous admission, EMS record, old EKG, old radiological studies, urgent care reports/EKG's, residential records)? Report findings @ -No old charts were reviewed Differential Diagnosis (chest pain, altered mental status, abdominal pain women, abdominal pain men, vaginal bleeding, weakness, fever, dyspnea, syncope, headache, dizziness, GI bleed, back pain, seizure, CVA, palpatations, mental health, musculoskeletal)? @ -Patient has had multiple inpatient visits EKG interpreted by me (3pts min.). @ -As above X-rays interpreted by me (1pt min.). @ -None done CT interpreted by me (1pt min.). @ -None done U/S interpreted by me (1pt. min.). @ -None done What testing was considered but not performed or refused? (CT, X-rays, U/S, labs)? Why? @ -None What meds were considered but not given or refused? Why? @ -None Did you discuss the management of the patient with other professionals (professionals i.e. , PA, CONTROLLER MECHANIC, lab, RT, psych nurse, social work supervisor, respiratory therapy director, teacher, staff antisubmarine officer, disease case manager rn)? Give summary @ -I spoke with Dr. Pang he agreed to admit the patient admit the patient wrote admitting orders Was smoking cessation discussed for >3mins.? @ -No Was critical care preformed (if so, how long)? @ -No Were there social determinants of health that impacted care today? How? (Homelessness, low income, unemployed, alcoholism, drug addiction, transportation, low edu. Level, literacy, decrease access to med. care, [facility], rehab)? @ -No Was there de-escalation of care discussed even if they declined (Discuss DNR or withdrawal of care, Hospice)? DNR status @ -No What co-morbidities impacted this encounter? (DM, HTN, Smoking, COPD, CAD, Cancer, CVA, ARF, Chemo, Hep., AIDS, mental health diagnosis, sleep apnea, morbid obesity)? @ -None Was patient admitted / discharged? Hospital course, mention meds given and route, prescriptions, significant lab abnormalities, going to OR and other pertinent info. @ -Patient is highly intoxicated and unable to be discharged under his own recognizance I spoke with Dr. Pang he agreed to admit the patient admit the patient wrote admitting orders Undiagnosed new problem with uncertain prognosis? @ -No Drug Therapy requiring intensive monitoring for toxicity (Heparin, Nitro, In sulin, Cardizem)? @ -No Were any procedures done? @ -No Diagnosis/symptom? @ -Alcohol intoxication Acute, or Chronic, or Acute on Chronic? @ -Acute Uncomplicated (without systemic symptoms) or Complicated (systemic symptoms)? @ -Complicated Side effects of treatment? @ -No Exacerbation, Progression, or Severe Exacerbation? @ -No Poses a threat to life or bodily function? How? (Chest pain, [place], [place], pneumonia, PE, COPD, DKA, ARF, appy, cholecystitis, CVA, Diverticulitis, Homicidal, Suicidal, threat to staff... and all critical care pts) @ -Yes this could lead to electrolyte abnormalities and morbidity or mortality - Lab Data Result diagrams: 04/26/24 10:41 04/26/24 10:41 Lab Results 04/26/24 04/26/24 04/26/24 Range/Units 10:41 10:41 10:41 WBC 5.3 (3.8-10.6) k/uL RBC 5.58 (4.30-5.90) m/uL Hgb 15.6 (13.0-17.5) gm/dL Hct 48.2 (39.0-53.0) % MCV 86.3 (80.0-100.0) fL MCH 28.0 (25.0-35.0) pg MCHC 32.4 (31.0-37.0) g/dL RDW 14.1 (11.5-15.5) % Plt Count 260 (150-450) k/uL MPV 9.2 Neutrophils % 48 % Lymphocytes % 44 % Monocytes % 4 % Eosinophils % 1 % Basophils % 2 % Neutrophils # 2.5 (1.3-7.7) k/uL Lymphocytes # 2.3 (1.0-4.8) k/uL Monocytes # 0.2 (0-1.0) k/uL Eosinophils # 0.1 (0-0.7) k/uL Basophils # 0.1 (0-0.2) k/uL Sodium 155 H (137-145) mmol/L Potassium 4.5 (3.5-5.1) mmol/L Chloride 119 H (98-107) mmol/L Carbon Dioxide 24 (22-30) mmol/L Anion Gap 12 mmol/L BUN 11 (9-20) mg/dL Creatinine 0.81 (0.66-1.25) mg/dL Est GFR (CKD-EPI)AfAm >90 (>60 ml/min/1.73 sqM) Est GFR (CKD-EPI)NonAf >90 (>60 ml/min/1.73 sqM) Glucose 92 (74-99) mg/dL Calcium 9.1 (8.4-10.2) mg/dL Magnesium 2.1 (1.6-2.3) mg/dL Total Bilirubin 0.4 (0.2-1.3) mg/dL AST 28 (17-59) U/L ALT 14 (4-49) U/L Alkaline Phosphatase 59 (38-126) U/L Total Protein 8.1 (6.3-8.2) g/dL Albumin 4.8 (3.5-5.0) g/dL Urine Opiates Screen Not Detected (NotDetected) Ur Oxycodone Screen Not Detected (NotDetected) Urine Methadone Screen Not Detected (NotDetected) Ur Barbiturates Screen Not Detected (NotDetected) U Tricyclic Antidepress Not Detected (NotDetected) Ur Phencyclidine Scrn Not Detected (NotDetected) Ur Amphetamines Screen Detected H (NotDetected) U Methamphetamines Scrn Detected H (NotDetected) U Benzodiazepines Scrn Detected H (NotDetected) Urine Cocaine Screen Not Detected (NotDetected) U Marijuana (THC) Screen Detected H (NotDetected) Serum Alcohol 347 H* mg/dL Disposition Clinical Impression: Alcohol intoxication Disposition: ADMITTED IP TO THIS [facility] Referrals: None,Stated [Primary Care Provider] - 1-2 days Time of Disposition: 14:03
[2024-04-26] MEDS: SODIUM CHLORIDE 0.9% 1,000 ML IV ONE ×2 (10:33→15:38)
[2024-04-26 11:20] LABS: ALT 14 U/L (4-49); AST 28 U/L (17-59); African American GFR (CKD) >90 (>60 ml/min/1.73 sqM); Albumin 4.8 g/dL (3.5-5.0); Blood Urea Nitrogen 11 mg/dL (9-20); Carbon Dioxide 24 mmol/L (22-30); Chloride 119 mmol/L (98-107); Glucose 92 mg/dL (74-99); Non-African American GFR(CKD) >90 (>60 ml/min/1.73 sqM); Total Bilirubin 0.4 mg/dL (0.2-1.3); Total Protein 8.1 g/dL (6.3-8.2)
[2024-04-26 11:23] LABS: Basophils # (A) 0.1 k/uL (0-0.2); Basophils % (A) 2 %; Eosinophils # (A) 0.1 k/uL (0-0.7); Eosinophils % (A) 1 %; HCT 48.2 % (39.0-53.0); HGB 15.6 gm/dL (13.0-17.5); Lymphocytes # (A) 2.3 k/uL (1.0-4.8); Lymphocytes % (A) 44 %; MCHC 32.4 g/dL (31.0-37.0); MCV 86.3 fL (80.0-100.0); Mean Platelet Volume 9.2; Monocytes # (A) 0.2 k/uL (0-1.0); Monocytes % (A) 4 %; Neutrophils # (A) 2.5 k/uL (1.3-7.7); Neutrophils % (A) 48 %; Platelet Count 260 k/uL (150-450); RBC 5.58 m/uL (4.30-5.90); RDW 14.1 % (11.5-15.5); WBC 5.3 k/uL (3.8-10.6)
[2024-04-26 11:47] LABS: Alkaline Phosphatase 59 U/L (38-126); Anion Gap 12 mmol/L; Calcium 9.1 mg/dL (8.4-10.2); Magnesium 2.1 mg/dL (1.6-2.3); Potassium 4.5 mmol/L (3.5-5.1); Sodium 155 mmol/L (137-145)
[2024-04-26 12:05] LABS: Alcohol 347 mg/dL
[2024-04-26 12:12] VITALS: TEMP 97.8
[2024-04-26 12:20] LABS: Amphetamine Screen,Urine Detected (NotDetected); Barbiturate Screen,Urine Not Detected (NotDetected); Benzodiazepines Screen,Urine Detected (NotDetected); Cocaine Screen,Urine Not Detected (NotDetected); Methadone Screen, Urine Not Detected (NotDetected); Opiate Screen,Urine Not Detected (NotDetected); Oxycodone Screen, Urine Not Detected (NotDetected); Phencyclidine Screen,Urine Not Detected (NotDetected); Tricyclic Antidepressant,Urine Not Detected (NotDetected); Urn Cannabinoid Scrn Detected (NotDetected)
[2024-04-26] MEDS ORDERED: LORazepam 2 MG/ML INJ IV PRN (14:05)
[2024-04-26] MEDS ORDERED: LORazepam 1 MG TAB PO PRN (14:05)
[2024-04-26] MEDS ORDERED: LORazepam 0.5 MG TAB PO PRN ×2 (14:05→14:27)
[2024-04-26] MEDS: LORazepam 2 MG/ML INJ IV PRN (15:38)
--- NOTE | 2024-04-26 15:52 | P.HPIM ---
History of Present Illness H&P Date: 04/26/24 History of Presenting Illness: Patient is a 38-year-old male with a past medical history of alcoholism, polysubstance abuse, and schizoaffective disorder. He is well-known to our services secondary to multiple recurrent admissions for alcohol and substance abuse as well as mental health disorders. He was recently just discharged from our facility on 04/25/2024 secondary to alcohol intoxication and polysubstance abuse with methamphetamines. Patient presented to the emergency department again today via EMS for alcohol intoxication in public and reports of altered mental status. Upon arrival to our facility, patient underwent evaluation in the emergency department. Vital signs upon arrival show blood pressure 141/104, heart rate 98, respiratory rate 18, temp 98.0 F, and SpO2 of 97% on room air. EKG was completed showing normal sinus rhythm at 94 bpm. Labs completed and reviewed. CBC unremarkable. BMP showing hyponatremia with sodium of 155 and chloride of 119. Sodium level drawn just prior to discharge yesterday was 140. Liver profile normal findings. Urine drug screen positive for amphetamines, methamphetamines, benzodiazepines, and marijuana. Serum blood alcohol level was elevated at 347. Patient was admitted under our services for alcohol intoxication and medical detox. Patient was seen and fully evaluated at bedside in the emergency department. He reports last time using meth being 04/25/2024 and states after discharge yesterday he drank 1/5 of liquor. Had long conversation with patient regarding need for rehab and continued reckless behaviors with binge drinkin, daily alcohol abuse, and methamphetamine abuse will only result in detrimental health consequences up to and including . Patient reports he did have an appointment with [facility] for rehab but did not go because he was intoxicated. Patient states he plans on getting another appointment for admission. He is currently alert and oriented x 4 and denies having any needs or complaints at this time. Review of systems: Pertinent positives and negatives as discussed in HPI, a complete review of systems was performed and all other systems are negative. Physical exam: Vital signs reviewed and stable. General: Nontoxic, no distress and appears stated age. Derm: Skin warm and dry, normal coloration for ethnicity. Head: Atraumatic, normocephalic and symmetric. Eyes: EOMs intact, no lid lag, and anicteric sclera Mouth: no lip lesions, mucus membranes moist Cardiovascular: regular rate and rhythm with normal S1S2, no murmur, positive posterior tibial pulses bilaterally, and cap refill < 2 seconds. Lungs: Respirations even, regular, and unlabored on room air. Lungs CTA bilaterally, no rhonchi, no rales, no wheezing, and no accessory muscle usage. Abdominal: soft, nontender to palpation, no guarding, no appreciable organomegaly Ext: ROM intact. No gross muscle atrophy, no edema, no contractures Neuro: Speech clear, face symmetrical and CN II-XII grossly intact with no noted focal neuro deficits. Mild tremors noted. Psych: Alert and oriented to person, place, time, and situation. Appropriate and pleasant affect. Assessment and Plan of Care: Acute alcohol intoxication in active alcoholic upon admission Hyperchloremic hypernatremia Non anion gap metabolic acidosis Polysubstance abuse with amphetamines, methamphetamines, and marijuana Schizoaffective disorder Bipolar disorder -Order placed for monitoring of CIWA scores and patient to be medicated with Ativan 0.5 mg every 4 hours as needed for CIWA score of 4-5, Ativan 1 mg every 4 hours for CIWA score of 6-7, Ativan 2 mg every 3 hours CIWA score of 8-9, and Ativan 2 mg every 2 hours forr CIWA score of 10 or greater. -Continuous IV hydration. -Thiamine 100 mg daily, Multivitamin daily, and Folate 1 mg daily -Seizure, fall, aspiration, and elopement precautions in place. -Urine drug screen positive for amphetamines, methamphetamines, benzodiazepines, and marijuana. -Continued close monitoring of electrolytes and replace as needed. -Telemetry monitoring. Data and imaging reviewed -As stated above in HPI The patient is admitted with an anticipated less than 2 midnight stay for evaluation of alcohol intoxication and medical detox. CODE STATUS: Full Code DVT prophylaxis: Heparin Anticipated discharge date: Within the next 24 hours once clinically sober Anticipated discharge place: Home Patient was seen independently by Nurse Practitioner. This document was prepared using [employer] dictation software. Please allow for errors in police communications operator while rare they do occur. John Breaux NP rendered care for this patient independently, reviewed the findings and plan as documented in the note above. I did not physically speak with or examine the patient on this date. Past Medical History Past Medical History: GERD/Reflux, Hypertension, Liver Disease, Skin Disorder Additional Past Medical History / Comment(s): Hepatitis C, Pancreatitis, DDD, back pain, bilateral carpel tunnel syndrome. In the past has reported that he has heart disease that was found when he had kidney problems but he denies having a stress test or cardiac catheterization. History of Any Multi-Drug Resistant Organisms: None Reported MDRO Source:: unknown Past Surgical History: No Surgical Hx Reported, Unable to Obtain Additional Past Surgical History / Comment(s): Pt states he has had numerous "cysts" removed from where he injected IV drugs. Past Anesthesia/Blood Transfusion Reactions: No Reported Reaction, Unable to Obtain Additional Past Anesthesia/Blood Transfusion Reaction / Comment(s): In the past pt reported that he has never had surgery Past Psychological History: Anxiety, Bipolar, Depression, Schizophrenia Smoking Status: Current every day smoker Past Alcohol Use History: Abuse, Heavy Past Drug Use History: Marijuana, Methamphetamine, Opiates - Past Family History Mother Family Medical History: Unable to Obtain, Rheumatoid Arthritis (RA) Additional Family Medical History / Comment(s): Mother is . Father Family Medical History: Coronary Artery Disease (CAD) Medications and Allergies Home Medications Medication Instructions Recorded Confirmed Type Benztropine Mesylate [Cogentin] 1 mg PO BID 04/24/24 04/26/24 History Mirtazapine [Remeron] 15 mg PO HS 04/24/24 04/26/24 History Allergies Allergy/AdvReac Type Severity Reaction Status Date / Time flea Allergy Rash/Hives Uncoded 04/26/24 12:41 Physical Exam Vitals: Vital Signs Temp Pulse Resp BP Pulse Ox 04/26/24 12:06 97.8 F 107 H 18 98 04/26/24 10:57 98.0 F 100 20 135/101 98 04/26/24 10:17 97.9 F 98 20 150/110 99 04/26/24 09:10 98.0 F 98 18 141/104 97 Intake and Output 04/25/24 04/26/24 04/26/24 22:59 06:59 14:59 Other: Weight 86.183 kg Results CBC & Chem 7: 04/26/24 10:41 04/26/24 10:41 Labs: Abnormal Lab Results - Last 24 Hours (Table) 04/26/24 04/26/24 Range/Units 10:41 10:41 Sodium 155 H (137-145) mmol/L Chloride 119 H (98-107) mmol/L Ur Amphetamines Screen Detected H (NotDetected) U Methamphetamines Scrn Detected H (NotDetected) U Benzodiazepines Scrn Detected H (NotDetected) U Marijuana (THC) Screen Detected H (NotDetected) Serum Alcohol 347 H* mg/dL
[2024-04-26 16:11] LABS: African American GFR (CKD) >90 (>60 ml/min/1.73 sqM); Anion Gap 11 mmol/L; Blood Urea Nitrogen 10 mg/dL (9-20); Calcium 8.7 mg/dL (8.4-10.2); Carbon Dioxide 23 mmol/L (22-30); Chloride 115 mmol/L (98-107); Glucose 101 mg/dL (74-99); Non-African American GFR(CKD) >90 (>60 ml/min/1.73 sqM); Potassium 3.7 mmol/L (3.5-5.1); Sodium 149 mmol/L (137-145)
[2024-04-26] MEDS: HEPARIN SODIUM,PORCINE 5,000 UNIT/ML 1 ML VIAL SQ SCH (16:52)
[2024-04-26] MEDS: MIRTAZAPINE 15 MG TAB PO SCH (21:42)
[2024-04-26] MEDS: BENZTROPINE MESYLATE 1 MG TAB PO SCH (21:42)
[2024-04-27 01:03] VITALS: BP 116/73; PULSE 53; RESP 16
[2024-04-27] MEDS: FOLIC ACID 1 MG TAB PO SCH (08:04)
[2024-04-27] MEDS: MULTIVITAMINS, THERA 1 EACH TAB PO SCH (08:04)
[2024-04-27] MEDS: THIAMINE 100 MG TAB PO SCH (08:04)
[2024-04-27] MEDS: LORazepam 1 MG TAB PO PRN (08:08)
[2024-04-27 08:30] LABS: HCT 36.1 % (39.0-53.0); MCH 28.1 pg (25.0-35.0); MCHC 33.4 g/dL (31.0-37.0); MCV 84.1 fL (80.0-100.0); Mean Platelet Volume 9.8; Platelet Count 165 k/uL (150-450); RBC 4.29 m/uL (4.30-5.90); RDW 13.7 % (11.5-15.5); WBC 8.3 k/uL (3.8-10.6)
[2024-04-27 08:57] LABS: African American GFR (CKD) >90 (>60 ml/min/1.73 sqM); Anion Gap 5 mmol/L; Blood Urea Nitrogen 8 mg/dL (9-20); Calcium 8.1 mg/dL (8.4-10.2); Carbon Dioxide 20 mmol/L (22-30); Chloride 115 mmol/L (98-107); Glucose 90 mg/dL (74-99); Magnesium 1.3 mg/dL (1.6-2.3); Non-African American GFR(CKD) >90 (>60 ml/min/1.73 sqM); Potassium 3.6 mmol/L (3.5-5.1); Sodium 140 mmol/L (137-145)
[2024-04-27] MEDS: NICOTINE 21MG/24HR PATCH TRANSDERM SCH (09:46)
[2024-04-27] MEDS: MAGNESIUM OXIDE 400 MG TAB PO STA (10:18)
[2024-04-27] MEDS: MAGNESIUM SULFATE-D5W PMX 1 GM in DEXTROSE/WATER 1 100ML.BAG IVPB SCH (10:19)
[2024-04-27] MEDS: buPROPion XL 150 MG TAB.ER.24H PO SCH (10:24)
--- NOTE | 2024-04-27 13:16 | P.DS ---
Providers Date of admission: 04/26/24 14:05 Expected date of discharge: 04/27/24 Attending physician: Nilson Pang MD Primary care physician: Stated None Hospital Course: Discharge Diagnosis: Alcohol withdrawal in active alcoholic Acute alcohol intoxication in active alcoholic upon admission Hyperchloremic hypernatremia. Hypomagnesemia. Replaced. Non anion gap metabolic acidosis. Polysubstance abuse with amphetamines, methamphetamines, and marijuana. Schizoaffective disorder. Bipolar disorder. Hospital Course: Patient is a 38-year-old male with a past medical history of alcoholism, polysubstance abuse, and schizoaffective disorder. He is well-known to our services secondary to multiple recurrent admissions for alcohol and substance abuse as well as mental health disorders. He was recently just discharged from our facility on 04/25/2024 secondary to alcohol intoxication and polysubstance abuse with methamphetamines. Patient presented to the emergency department again today via EMS for alcohol intoxication in public and reports of altered mental status. Upon arrival to our facility, patient underwent evaluation in the emergency department. Vital signs upon arrival show blood pressure 141/104, heart rate 98, respiratory rate 18, temp 98.0 F, and SpO2 of 97% on room air. EKG was completed showing normal sinus rhythm at 94 bpm. Labs completed and reviewed. CBC unremarkable. BMP showing hyponatremia with sodium of 155 and chloride of 119. Sodium level drawn just prior to discharge yesterday was 140. Liver profile normal findings. Urine drug screen positive for amphetamines, methamphetamines, benzodiazepines, and marijuana. Serum blood alcohol level was elevated at 347. Patient was admitted under our services for alcohol intoxication and medical detox. Patient sodium levels improved with IV fluid hydration. Sodium level on discharge is 140 with chloride of 115. Magnesium was low at 1.3 and orders were placed for replacement. Patient adamant about being discharged this morning. Patient also tearful stating he did not make it to [facility] and did not get his Wellbutrin prescription refilled and has significant depression without it. Order was placed for Wellbutrin 150 mg daily and patient provided with a 30-day prescription and instructed that he needs to follow-up with [facility] for further refills. Medically, patient is stable for discharge at this time patient strongly encouraged to avoid any and all alcohol and drug use and to follow-up outpatient with [facility]. Patient also strongly encouraged to reconsider inpatient drug and alcohol rehab. Physical exam: Vital signs reviewed and stable. General: Nontoxic, no distress and appears stated age. Derm: Skin warm and dry, normal coloration for ethnicity. Head: Atraumatic, normocephalic and symmetric. Eyes: EOMs intact, no lid lag, and anicteric sclera Mouth: no lip lesions, mucus membranes moist Cardiovascular: regular rate and rhythm with normal S1S2, no murmur, positive posterior tibial pulses bilaterally, and cap refill < 2 seconds. Lungs: Respirations even, regular, and unlabored on room air. Lungs CTA bilaterally, no rhonchi, no rales, no wheezing, and no accessory muscle usage. Abdominal: soft, nontender to palpation, no guarding, no appreciable organomegaly Ext: ROM intact. No gross muscle atrophy, no edema, no contractures Neuro: Speech clear, face symmetrical and CN II-XII grossly intact with no noted focal neuro deficits. Mild tremors noted. Psych: Alert and oriented to person, place, time, and situation. Appropriate and pleasant affect. A total of 31 minutes of time were spent preparing this complex discharge summary. Pt was discharged on 04/27/2024 at 10:03 AM. Patient was seen independently by Nurse Practitioner. This document was prepared using [employer] dictation software. Please allow for errors in pre sales systems engineer while rare they do occur. John Breaux NP rendered care for this patient independently, reviewed the findings and plan as documented in the note above. I did not physically speak with or examine the patient on this date. Patient Condition at Discharge: Stable Plan - Discharge Summary New Discharge Prescriptions: New Folic Acid 1 mg PO DAILY 30 Days #30 tab Thiamine [Vitamin B-1] 100 mg PO DAILY 30 Days #30 tab Magnesium Oxide [Mag-Ox] 400 mg PO DAILY 30 Days #30 tablet Multivitamins, Thera [Multivitamin (formulary)] 1 each PO DAILY 30 Days #30 tab buPROPion XL [Wellbutrin XL] 150 mg PO DAILY 30 Days #30 tab Continue Benztropine Mesylate [Cogentin] 1 mg PO BID Mirtazapine [Remeron] 15 mg PO HS Discharge Medication List Benztropine Mesylate [Cogentin] 1 mg PO BID 04/24/24 [History] Mirtazapine [Remeron] 15 mg PO HS 04/24/24 [History] Folic Acid 1 mg PO DAILY 30 Days #30 tab 04/27/24 [Rx] Magnesium Oxide [Mag-Ox] 400 mg PO DAILY 30 Days #30 tablet 04/27/24 [Rx] Multivitamins, Thera [Multivitamin (formulary)] 1 each PO DAILY 30 Days #30 tab 04/27/24 [Rx] Thiamine [Vitamin B-1] 100 mg PO DAILY 30 Days #30 tab 04/27/24 [Rx] buPROPion XL [Wellbutrin XL] 150 mg PO DAILY 30 Days #30 tab 04/27/24 [Rx] Follow up Appointment(s)/Referral(s): None,Stated [Primary Care Provider] - 1-2 days Activity/Diet/Wound Care/Special Instructions: Activity: As tolerated. Take breaks as needed. Diet: Heart healthy and carb consistent diet. Avoid salts, or foods with hidden salts such as canned or boxed foods and frozen dinners. Extra salt makes your heart work harder and traps the fluid in your body for longer. Special Instructions: As discussed with you on multiple occasions, it is highly recommended that you avoid any and all alcohol use and attend an inpatient drug and alcohol rehabilitation facility. Continued alcohol abuse will only lead to further detrimental health conditions including cirrhosis and/or . Strongly recommend avoiding any drug use including meth. Also, as we discussed it is important to follow-up with [facility]. I did send a prescription for your Wellbutrin, but it is only a 30-day prescription. You need to follow-up with [facility] to get further medications. Thank you for allowing us to participate in your care, it was truly a pleasure having you for our patient!!! . Discharge/Stand Alone Forms: AA Meetings [facility] 24 - [facility], AA Meetings [place], [facility] Shelters, Who Do I Call?, Community Resources, Outpatient Counseling, Inp Substance Abuse Facilities, Outpatient Therapy List Discharge Disposition: HOME SELF-CARE
== END 2024-04-27 10:34 | disposition home or self-care (01) ==
LOC: EC 09:09 → 6NMEDSUR 14:05 → 4SSUR 20:29
PROVIDERS: ADMIT Student in an Organized Health Care Education/Training Program; ATTEND Student in an Organized Health Care Education/Training Program
DX: F10.229 Alcohol dependence with intoxication, unspecified (principal); F10.239 Alcohol dependence with withdrawal, unspecified; E87.20 Acidosis, unspecified; E83.42 Hypomagnesemia; E87.1 Hypo-osmolality and hyponatremia; E87.8 Other disorders of electrolyte and fluid balance, not elsewhere classified; F15.10 Other stimulant abuse, uncomplicated; F12.10 Cannabis abuse, uncomplicated; F19.10 Other psychoactive substance abuse, uncomplicated; F25.9 Schizoaffective disorder, unspecified; F31.9 Bipolar disorder, unspecified; Y90.8 Blood alcohol level of 240 mg/100 ml or more; F17.200 Nicotine dependence, unspecified, uncomplicated; Z79.899 Other long term (current) drug therapy; Z91.038 Other insect allergy status
CPT/HCPCS: 96376; 96361 ×2; 96372 ×2; 96374; 99285; 36415; 93005; 80053; 80048 ×2; 83735 ×2; 85025; 85027; 80306; G0378 ×3; G0480; S4990; J2060; J1644 ×2; 80320

== ENCOUNTER 2024-06-01 14:31 | Emergency (ER) | payer OTHER ==
[2024-06-01 15:22] VITALS: TEMP 97.8
--- NOTE | 2024-06-01 15:23 | ED ---
Altered Mental Status HPI - General Chief Complaint: Overdose Stated Complaint: overdose Time Seen by Provider: 06/01/24 14:34 Source: EMS, RN notes reviewed, old records reviewed Mode of arrival: EMS Limitations: no limitations - History of Present Illness Initial Comments: This is a 38-year-old male well-known to this emergency room today. Patient pr esents today for evaluation regards to altered mental status secondary to significant intoxication alcohol intoxication with heroin use. Patient was given Narcan and became immediate responsive and remains awake here in the emergency department MD Complaint: altered mental status, confusion, decreased responsiveness, intoxication -: minutes(s) Severity: severe Consistency of Symptoms: waxing and waning Context: alcohol abuse, drug abuse Associated Symptoms: denies other symptoms Treatments Prior to Arrival: IV fluid (Narcan), oxygen - Related Data Home Medications Medication Instructions Recorded Confirmed Haloperidol Decanoate [Haldol D] 200 mg IM Q14D 06/07/24 06/07/24 Previous Rx's Medication Instructions Recorded FLUoxetine HCL [PROzac] 20 mg PO DAILY 7 Days #7 cap 06/10/24 Melatonin 5 mg PO HS PRN tab 06/10/24 Nicotine 14Mg/24Hr Patch [Habitrol] 1 patch TRANSDERM DAILY 14 Days 06/10/24 #14 patch Allergies Allergy/AdvReac Type Severity Reaction Status Date / Time flea Allergy Rash/Hives Uncoded 06/07/24 16:31 Review of Systems ROS Statement: Those systems with pertinent positive or pertinent negative responses have been documented in the HPI. ROS Other: All systems not noted in ROS Statement are negative. Past Medical History Past Medical History: GERD/Reflux, Hypertension, Liver Disease, Skin Disorder Additional Past Medical History / Comment(s): Hepatitis C, Pancreatitis, DDD, back pain, bilateral carpel tunnel syndrome. In the past has reported that he has heart disease that was found when he had kidney problems but he denies having a stress test or cardiac catheterization. History of Any Multi-Drug Resistant Organisms: None Reported MDRO Source:: unknown Past Surgical History: No Surgical Hx Reported, Unable to Obtain Additional Past Surgical History / Comment(s): Pt states he has had numerous "cysts" removed from where he injected IV drugs. Past Anesthesia/Blood Transfusion Reactions: No Reported Reaction, Unable to Obtain Additional Past Anesthesia/Blood Transfusion Reaction / Comment(s): In the past pt reported that he has never had surgery Past Psychological History: Anxiety, Bipolar, Depression, Schizophrenia Smoking Status: Current every day smoker Past Alcohol Use History: Abuse, Heavy Past Drug Use History: Heroin, Marijuana, Methamphetamine, Opiates - Past Family History Mother Family Medical History: Unable to Obtain, Rheumatoid Arthritis (RA) Additional Family Medical History / Comment(s): Mother is . Father Family Medical History: Coronary Artery Disease (CAD) General Exam General appearance: appears intoxicated Head exam: Present: atraumatic, normocephalic, normal inspection Eye exam: Present: normal appearance, PERRL, EOMI. Absent: scleral icterus, conjunctival injection, periorbital swelling ENT exam: Present: normal exam, mucous membranes moist Neck exam: Present: normal inspection. Absent: tenderness, meningismus, lymphadenopathy Respiratory exam: Present: normal lung sounds bilaterally. Absent: respiratory distress, wheezes, rales, rhonchi, stridor Cardiovascular Exam: Present: regular rate, normal rhythm, normal heart sounds. Absent: systolic murmur, diastolic murmur, rubs, gallop, clicks GI/Abdominal exam: Present: soft, normal bowel sounds. Absent: distended, tenderness, guarding, rebound, rigid Extremities exam: Present: normal inspection, full ROM, normal capillary refill. Absent: tenderness, pedal edema, joint swelling, calf tenderness Back exam: Present: normal inspection Neurological exam: Present: alert, oriented X3, CN II-XII intact Psychiatric exam: Present: normal affect, normal mood Skin exam: Present: warm, dry, intact, normal color. Absent: rash Course Vital Signs 06/01/24 06/01/24 15:19 17:11 Temperature 97.8 F Pulse Rate 76 78 Respiratory 21 18 Rate Blood Pressure 159/113 140/95 O2 Sat by Pulse 89 L 96 Oximetry - Reevaluation(s) Reevaluation #1: Medical records reviewed Reevaluation #2: Patient remains with significant alteration of mental status Reevaluation #3: Patient informed of results and questions answered Reevaluation #4: Was pt. sent in by a medical professional or institution (, PA, DIRECTOR OF PRODUCT DEVELOPMENT, urgent care, hospital, or assisted...) When possible be specific @ -no Did you speak to anyone other than the patient for history (EMS, parent, family, police, friend...)? What history was obtained from this source @ -no Did you review nursing and triage notes (agree or disagree)? Why? @ -agree Are old charts reviewed (outside hosp., previous admission, EMS record, old EKG, old radiological studies, urgent care reports/EKG's, assisted records)? Report findings @ -yes Differential Diagnosis (chest pain, altered mental status, abdominal pain women, abdominal pain men, vaginal bleeding, weakness, fever, dyspnea, syncope, heada cezar, dizziness, GI bleed, back pain, seizure, CVA, palpatations, mental health, musculoskeletal)? @ -prior EKG interpreted by me (3pts min.). @ -yes X-rays interpreted by me (1pt min.). @ -yes negative for acute disease CT interpreted by me (1pt min.). @ -no U/S interpreted by me (1pt. min.). @ -no What testing was considered but not performed or refused? (CT, X-rays, U/S, labs)? Why? @ -none What meds were considered but not given or refused? Why? @ -none Did you discuss the management of the patient with other professionals (professionals i.e. , PA, DIRECTOR OF PRODUCT DEVELOPMENT, lab, RT, psych nurse, medical social worker, metal filer, teacher, psychological operations officer, therapeutic case manager)? Give summary @ -no Was smoking cessation discussed for >3mins.? @ -no Was critical care preformed (if so, how long)? @ -no Were there social determinants of health that impacted care today? How? (Homelessness, low income, unemployed, alcoholism, drug addiction, transportation, low edu. Level, literacy, decrease access to med. care, retirement, rehab)? @ -none Was there de-escalation of care discussed even if they declined (Discuss DNR or withdrawal of care, Hospice)? DNR status @ -no What co-morbidities impacted this encounter? (DM, HTN, Smoking, COPD, CAD, Cancer, CVA, ARF, Chemo, Hep., AIDS, mental health diagnosis, sleep apnea, morb id obesity)? @ -none Was patient admitted / discharged? Hospital course, mention meds given and rou te, prescriptions, significant lab abnormalities, going to OR and other pertinent info. @ -38 male with acute overdose with intoxication accidental heroin overdose patient feels well can be discharged home does not want further inpatient admission Discharge Undiagnosed new problem with uncertain prognosis? @ -no Drug Therapy requiring intensive monitoring for toxicity (Heparin, Nitro, Insulin, Cardizem)? @ -no Were any procedures done? @ -no Diagnosis/symptom? @ -Acute overdose and intoxication Acute, or Chronic, or Acute on Chronic? @ -Acute Uncomplicated (without systemic symptoms) or Complicated (systemic symptoms)? @ -Complicated Side effects of treatment? @ -no Exacerbation, Progression, or Severe Exacerbation? @ -exacerbation Poses a threat to life or bodily function? How? (Chest pain, USA, MA, pneumonia, PE, COPD, DKA, ARF, appy, cholecystitis, CVA, Diverticulitis, Homicidal, Suicidal, threat to staff... and all critical care pts) @ -yes with overdose Reevaluation #5: Differential Altered Mental Status: Hypoglycemia, DKA, hypercapnia, ETOH, overdose, CO poisoning, trauma, myxedema coma, HTN encephalopathy, infection, encephalitis, psychosis, intercranial hemorrhage, hepatic encephalopathy, meningitis, CVA, this is not meant to be an all-inclusive list Medical Decision Making - Medical Decision Making 38 male with acute overdose with intoxication accidental heroin overdose patient feels well can be discharged home does not want further inpatient admission - Lab Data Result diagrams: 06/01/24 14:34 06/01/24 14:34 Lab Results 06/01/24 06/01/24 06/01/24 Range/Units 14:34 14:34 14:34 WBC 7.7 (3.8-10.6) k/uL RBC 4.06 L (4.30-5.90) m/uL Hgb 11.9 L (13.0-17.5) gm/dL Hct 35.6 L (39.0-53.0) % MCV 87.7 (80.0-100.0) fL MCH 29.4 (25.0-35.0) pg MCHC 33.5 (31.0-37.0) g/dL RDW 14.5 (11.5-15.5) % Plt Count 129 L (150-450) k/uL MPV 10.0 Neutrophils % 71 % Lymphocytes % 16 % Monocytes % 10 % Eosinophils % 1 % Basophils % 1 % Neutrophils # 5.4 (1.3-7.7) k/uL Lymphocytes # 1.2 (1.0-4.8) k/uL Monocytes # 0.7 (0-1.0) k/uL Eosinophils # 0.1 (0-0.7) k/uL Basophils # 0.1 (0-0.2) k/uL PT 11.1 (10.0-12.5) sec INR 1.0 (<1.2) APTT 19.2 L (22.0-30.0) sec D-Dimer 0.43 (<0.60) mg/L FEU Sodium 139 (137-145) mmol/L Potassium 3.9 (3.5-5.1) mmol/L Chloride 109 H (98-107) mmol/L Carbon Dioxide 23 (22-30) mmol/L Anion Gap 7 mmol/L BUN 12 (9-20) mg/dL Creatinine 0.89 (0.66-1.25) mg/dL Est GFR (CKD-EPI)AfAm >90 (>60 ml/min/1.73 sqM) Est GFR (CKD-EPI)NonAf >90 (>60 ml/min/1.73 sqM) Glucose 100 H (74-99) mg/dL Calcium 9.1 (8.4-10.2) mg/dL Magnesium 1.9 (1.6-2.3) mg/dL Total Bilirubin 0.6 (0.2-1.3) mg/dL AST 29 (17-59) U/L ALT 12 (4-49) U/L Alkaline Phosphatase 37 L (38-126) U/L Troponin I (0.000-0.034) ng/mL NT-Pro-B Natriuret Pep 465 pg/mL Total Protein 6.8 (6.3-8.2) g/dL Albumin 4.1 (3.5-5.0) g/dL Lipase 70 (23-300) U/L Urine Color Urine Appearance (Clear) Urine pH (5.0-8.0) Ur Specific [place] (1.001-1.035) Urine Protein (Negative) Urine Glucose (UA) (Negative) Urine Ketones (Negative) Urine Blood (Negative) Urine Nitrite (Negative) Urine Bilirubin (Negative) Urine Urobilinogen (<2.0) mg/dL Ur Leukocyte Esterase (Negative) 06/01/24 06/01/24 Range/Units 14:34 16:30 WBC (3.8-10.6) k/uL RBC (4.30-5.90) m/uL Hgb (13.0-17.5) gm/dL Hct (39.0-53.0) % MCV (80.0-100.0) fL MCH (25.0-35.0) pg MCHC (31.0-37.0) g/dL RDW (11.5-15.5) % Plt Count (150-450) k/uL MPV Neutrophils % % Lymphocytes % % Monocytes % % Eosinophils % % Basophils % % Neutrophils # (1.3-7.7) k/uL Lymphocytes # (1.0-4.8) k/uL Monocytes # (0-1.0) k/uL Eosinophils # (0-0.7) k/uL Basophils # (0-0.2) k/uL PT (10.0-12.5) sec INR (<1.2) APTT (22.0-30.0) sec D-Dimer (<0.60) mg/L FEU Sodium (137-145) mmol/L Potassium (3.5-5.1) mmol/L Chloride (98-107) mmol/L Carbon Dioxide (22-30) mmol/L Anion Gap mmol/L BUN (9-20) mg/dL Creatinine (0.66-1.25) mg/dL Est GFR (CKD-EPI)AfAm (>60 ml/min/1.73 sqM) Est GFR (CKD-EPI)NonAf (>60 ml/min/1.73 sqM) Glucose (74-99) mg/dL Calcium (8.4-10.2) mg/dL Magnesium (1.6-2.3) mg/dL Total Bilirubin (0.2-1.3) mg/dL AST (17-59) U/L ALT (4-49) U/L Alkaline Phosphatase (38-126) U/L Troponin I <0.012 (0.000-0.034) ng/mL NT-Pro-B Natriuret Pep pg/mL Total Protein (6.3-8.2) g/dL Albumin (3.5-5.0) g/dL Lipase (23-300) U/L Urine Color Colorless Urine Appearance Clear (Clear) Urine pH 6.0 (5.0-8.0) Ur Specific [place] 1.009 (1.001-1.035) Urine Protein Negative (Negative) Urine Glucose (UA) Trace H (Negative) Urine Ketones Negative (Negative) Urine Blood Negative (Negative) Urine Nitrite Negative (Negative) Urine Bilirubin Negative (Negative) Urine Urobilinogen <2.0 (<2.0) mg/dL Ur Leukocyte Esterase Negative (Negative) - EKG Data -: EKG Interpreted by Me (EKG is sinus 72 IN 142 QRS 94 QTc 378) - Radiology Data Radiology results: report reviewed (Chest x-ray is negative for acute disease), image reviewed Disposition Clinical Impression: Accidental drug overdose, Opiate abuse, continuous, Overdose, Alcohol abuse, Opioid abuse, Intoxication, Altered mental status, Drug overdose, Heroin abuse Disposition: HOME SELF-CARE Condition: Fair Instructions (If sedation given, give patient instructions): Adult Overdose (ED) Is patient prescribed a controlled substance at d/c from ED?: No Referrals: None,Stated [Primary Care Provider] - 1-2 days Time of Disposition: 17:00
[2024-06-01] MEDS: SODIUM CHLORIDE 0.9% 1,000 ML IV STA (15:24)
[2024-06-01 15:50] LABS: ALT 12 U/L (4-49); African American GFR (CKD) >90 (>60 ml/min/1.73 sqM); Albumin 4.1 g/dL (3.5-5.0); Anion Gap 7 mmol/L; Blood Urea Nitrogen 12 mg/dL (9-20); Calcium 9.1 mg/dL (8.4-10.2); Carbon Dioxide 23 mmol/L (22-30); Chloride 109 mmol/L (98-107); Glucose 100 mg/dL (74-99); Lipase 70 U/L (23-300); Non-African American GFR(CKD) >90 (>60 ml/min/1.73 sqM); Sodium 139 mmol/L (137-145); Total Bilirubin 0.6 mg/dL (0.2-1.3); Total Protein 6.8 g/dL (6.3-8.2)
[2024-06-01 15:52] LABS: Potassium 3.9 mmol/L (3.5-5.1)
[2024-06-01 15:53] LABS: AST 29 U/L (17-59); Alkaline Phosphatase 37 U/L (38-126); Magnesium 1.9 mg/dL (1.6-2.3)
[2024-06-01 15:58] LABS: Basophils # (A) 0.1 k/uL (0-0.2); Basophils % (A) 1 %; Eosinophils # (A) 0.1 k/uL (0-0.7); Eosinophils % (A) 1 %; HCT 35.6 % (39.0-53.0); HGB 11.9 gm/dL (13.0-17.5); Lymphocytes # (A) 1.2 k/uL (1.0-4.8); Lymphocytes % (A) 16 %; MCH 29.4 pg (25.0-35.0); MCHC 33.5 g/dL (31.0-37.0); MCV 87.7 fL (80.0-100.0); Monocytes # (A) 0.7 k/uL (0-1.0); Monocytes % (A) 10 %; Neutrophils # (A) 5.4 k/uL (1.3-7.7); Neutrophils % (A) 71 %; Platelet Count 129 k/uL (150-450); RBC 4.06 m/uL (4.30-5.90); RDW 14.5 % (11.5-15.5); WBC 7.7 k/uL (3.8-10.6)
[2024-06-01 15:59] LABS: NT-Pro-B-Type Natriuretic Pept 465 pg/mL
--- NOTE | 2024-06-01 16:02 | XR ---
EXAMINATION TYPE: XR chest 2V DATE OF EXAM: 06/01/2024 COMPARISON: NONE HISTORY: Chest pain TECHNIQUE: Frontal and lateral views of the chest are obtained. FINDINGS: There is no focal air space opacity. No evidence for pneumothorax. No pleural effusion. The cardiac silhouette size is within normal limits. The osseous structures are grossly intact. IMPRESSION: 1. No acute cardiopulmonary process.
[2024-06-01 16:04] LABS: Prothrombin Time 11.1 sec (10.0-12.5)
[2024-06-01 16:07] LABS: Partial Thromboplastin Time 19.2 sec (22.0-30.0)
[2024-06-01 17:00] LABS: Appearance,Urine Clear (Clear); Bilirubin,Urine Negative (Negative); Blood,Urine Negative (Negative); Color,Urine Colorless; Glucose,Urine (UA) Trace (Negative); Ketones,Urine Negative (Negative); Leukocyte Esterase,Urine Negative (Negative); Nitrite,Urine Negative (Negative); Protein,Urine Negative (Negative); Specific Gravity,Urine 1.009 (1.001-1.035); Urobilinogen,Urine <2.0 mg/dL (<2.0)
[2024-06-01 17:12] VITALS: BP 140/95; PULSE 78; RESP 18
== END 2024-06-01 17:13 | disposition home or self-care (01) ==
LOC: EC 14:31
DX: T40.1X1A Poisoning by heroin, accidental (unintentional), initial encounter (principal); F10.129 Alcohol abuse with intoxication, unspecified; R41.82 Altered mental status, unspecified; F17.200 Nicotine dependence, unspecified, uncomplicated; Z88.8 Allergy status to other drugs, medicaments and biological substances
CPT/HCPCS: 36415; 71046; 80053; 81003; 83690; 83735; 83880; 84484; 85025; 85379; 85610; 85730; 93005; 96360; 96361; 99285

== ENCOUNTER 2024-06-06 20:46 | Emergency (ER) | payer OTHER ==
--- NOTE | 2024-06-06 21:21 | ED ---
Overdose HPI - General Chief Complaint: Overdose Stated Complaint: Mental Health , Overdose Time Seen by Provider: 06/06/24 20:55 Source: patient, EMS - History of Present Illness Initial Comments: Patient is a 38-year-old man brought to have evaluation for weakness. He called EMS because he thought he had overdosed himself. He drank a little over a pint of alcohol and he took 5 Klonopin. Patient denies suicidal intent. Patient states that he was feeling very anxious and therefore he took extra do ses of his medication MD Complaint: accidental overdose -: minutes(s) Intent: other (States that he was very anxious) How Overdose Was Discovered: called 911 Context: Accidental Overdose: was drinking then took pills Treatments Prior to Arrival: none - Related Data Home Medications Medication Instructions Recorded Confirmed Haloperidol Decanoate [Haldol D] 200 mg IM Q14D 06/07/24 06/14/24 Previous Rx's Medication Instructions Recorded FLUoxetine HCL [PROzac] 20 mg PO DAILY 7 Days #7 cap 06/10/24 Melatonin 5 mg PO HS PRN tab 06/10/24 Nicotine 14Mg/24Hr Patch [Habitrol] 1 patch TRANSDERM DAILY 14 Days 06/10/24 #14 patch Allergies Allergy/AdvReac Type Severity Reaction Status Date / Time flea Allergy Rash/Hives Uncoded 06/14/24 07:45 Review of Systems ROS Statement: Those systems with pertinent positive or pertinent negative responses have been documented in the HPI. ROS Other: All systems not noted in ROS Statement are negative. Constitutional: Denies: fever Respiratory: Denies: cough, dyspnea Cardiovascular: Denies: chest pain, palpitations, syncope Gastrointestinal: Denies: abdominal pain, vomiting, diarrhea Genitourinary: Denies: dysuria, hematuria Musculoskeletal: Denies: back pain Skin: Denies: rash Neurological: Denies: headache, weakness Psychiatric: Reports: anxiety. Denies: suicidal thoughts Past Medical History Past Medical History: GERD/Reflux, Hypertension, Liver Disease, Skin Disorder Additional Past Medical History / Comment(s): Hepatitis C, Pancreatitis, DDD, back pain, bilateral carpel tunnel syndrome. In the past has reported that he has heart disease that was found when he had kidney problems but he denies having a stress test or cardiac catheterization. History of Any Multi-Drug Resistant Organisms: None Reported MDRO Source:: unknown Past Surgical History: No Surgical Hx Reported, Unable to Obtain Additional Past Surgical History / Comment(s): Pt states he has had numerous "cysts" removed from where he injected IV drugs. Past Anesthesia/Blood Transfusion Reactions: No Reported Reaction, Unable to Obtain Additional Past Anesthesia/Blood Transfusion Reaction / Comment(s): In the past pt reported that he has never had surgery Past Psychological History: Anxiety, Bipolar, Depression, Schizophrenia Smoking Status: Current every day smoker Past Alcohol Use History: Abuse, Heavy Past Drug Use History: Heroin, Marijuana, Methamphetamine, Opiates - Past Family History Mother Family Medical History: Unable to Obtain, Rheumatoid Arthritis (RA) Additional Family Medical History / Comment(s): Mother is . Father Family Medical History: Coronary Artery Disease (CAD) General Exam General appearance: alert, in no apparent distress, appears intoxicated Head exam: Present: atraumatic, normocephalic Eye exam: Present: normal appearance, PERRL, nystagmus. Absent: scleral icterus, conjunctival injection ENT exam: Present: normal oropharynx Neck exam: Present: normal inspection, full ROM. Absent: tenderness Respiratory exam: Present: normal lung sounds bilaterally. Absent: respiratory distress, wheezes, rales, rhonchi, stridor, accessory muscle use Cardiovascular Exam: Present: regular rate, normal rhythm, normal heart sounds. Absent: systolic murmur, diastolic murmur, rubs, gallop GI/Abdominal exam: Present: soft. Absent: distended, tenderness, guarding, rebound, rigid Extremities exam: Present: normal inspection, normal capillary refill. Absent: pedal edema, calf tenderness Back exam: Present: normal inspection. Absent: CVA tenderness (R), CVA tenderness (L) Neurological exam: Present: alert Psychiatric exam: Present: anxious. Absent: agitated, flat affect, homicidal ideation, suicidal ideation Skin exam: Present: warm, dry, intact, normal color. Absent: rash Course Vital Signs 06/06/24 06/06/24 06/06/24 20:49 21:30 22:00 Pulse Rate 68 84 68 Respiratory 18 18 18 Rate Blood Pressure 141/96 138/98 121/77 O2 Sat by Pulse 97 97 99 Oximetry 06/06/24 06/06/24 06/06/24 22:30 22:58 23:00 Pulse Rate 66 72 70 Respiratory 18 Rate Blood Pressure 124/95 129/89 129/89 O2 Sat by Pulse 98 99 99 Oximetry 06/06/24 06/07/24 06/07/24 23:30 00:00 00:30 Pulse Rate Respiratory Rate Blood Pressure 150/115 153/99 153/99 O2 Sat by Pulse Oximetry 06/07/24 06/07/24 06/07/24 01:00 01:30 02:00 Pulse Rate 66 67 68 Respiratory 16 16 Rate Blood Pressure 153/99 107/72 102/55 O2 Sat by Pulse 97 93 L 94 L Oximetry 06/07/24 06/07/24 06/07/24 02:30 03:00 03:30 Pulse Rate 66 68 68 Respiratory 14 Rate Blood Pressure 113/66 111/67 116/71 O2 Sat by Pulse 96 96 Oximetry 06/07/24 06/07/24 06/07/24 04:00 04:30 05:00 Pulse Rate 61 67 73 Respiratory 14 Rate Blood Pressure 133/94 107/61 108/66 O2 Sat by Pulse Oximetry 06/07/24 06/07/24 05:30 06:00 Pulse Rate 70 63 Respiratory 16 16 Rate Blood Pressure 130/80 126/78 O2 Sat by Pulse Oximetry Medical Decision Making - Medical Decision Making This patient is a 38-year-old man with history of underlying psychiatric illness who presents with complaint that he thought he may have accidentally overdosed himself by taking his medication with alcohol. The patient observed in the emergency department to ensure that no significant respiratory depression developed. Was pt. sent in by a medical professional or institution (, PA, COSTUME DESIGN TEACHER, urgent care, hospital, or correction...) When possible be specific @ -[No] Did you speak to anyone other than the patient for history (EMS, parent, family, police, friend...)? What history was obtained from this source @ -[No] Did you review nursing and triage notes (agree or disagree)? Why? @ -[I reviewed and agree with nursing and triage notes] Were old charts reviewed (outside hosp., previous admission, EMS record, old EKG, old radiological studies, urgent care reports/EKG's, correction records)? Report findings @ -[No old charts were reviewed] Differential Diagnosis (chest pain, altered mental status, abdominal pain women, abdominal pain men, vaginal bleeding, weakness, fever, dyspnea, syncope, headache, dizziness, GI bleed, back pain, seizure, CVA, palpatations, mental health, musculoskeletal)? @ -[Differential Mental Health Depression, anxiety, bipolar, psychosis, schizophrenia, borderline personality, situational depression, adjustment disorder, behavioral disorder, brain tumor, malingering, substance abuse, encephalopathy, medication reaction, dementia, hypothyroidism, degenerative neurologic disorder, lupus.... This is not meant to be all-inclusive list EKG interpreted by me (3pts min.). @ -[I interpreted as above] X-rays interpreted by me (1pt min.). @ -[None done] CT interpreted by me (1pt min.). @ -[None done] U/S interpreted by me (1pt. min.). @ -[None done] What testing was considered but not performed or refused? (CT, X-rays, U/S, labs)? Why? @ -[None] What meds were considered but not given or refused? Why? @ -[None] Did you discuss the management of the patient with other professionals (professionals i.e. , PA, COSTUME DESIGN TEACHER, lab, RT, psych nurse, social services designee, drawing tracer, teacher, adult probation officer, case finisher)? Give summary @ -[No] Was smoking cessation discussed for >3mins.? @ -[No] Was critical care preformed (if so, how long)? @ -[No] Were there social determinants of health that impacted care today? How? (Homelessness, low income, unemployed, alcoholism, drug addiction, tr ansportation, low edu. Level, literacy, decrease access to med. care, [facility]ci, rehab)? @ -[No] Was there de-escalation of care discussed even if they declined (Discuss DNR or withdrawal of care, Hospice)? DNR status @ -[No] What co-morbidities impacted this encounter? (DM, HTN, Smoking, COPD, CAD, Ca ncer, CVA, ARF, Chemo, Hep., AIDS, mental health diagnosis, sleep apnea, morbid obesity)? @ -[None] Was patient admitted / discharged? Hospital course, mention meds given and route, prescriptions, significant lab abnormalities, going to OR and other pertinent info. @ -[hospital course] Undiagnosed new problem with uncertain prognosis? @ -[No] Drug Therapy requiring intensive monitoring for toxicity (Heparin, Nitro, Insulin, Cardizem)? @ -[No] Were any procedures done? @ -[No] Diagnosis/symptom? @ -[Polysubstance abuse Acute, or Chronic, or Acute on Chronic? @ -[Acute Uncomplicated (without systemic symptoms) or Complicated (systemic symptoms)? @ -Uncomplicated Side effects of treatment? @ -[No] Exacerbation, Progression, or Severe Exacerbation? @ -[No] Poses a threat to life or bodily function? How? (Chest pain, [place], [place], pneumonia, PE, COPD, DKA, ARF, appy, cholecystitis, CVA, Diverticulitis, Homicidal, Suicidal, threat to staff... and all critical care pts) @ -[No] - Lab Data Result diagrams: 06/06/24 21:16 06/06/24 21:16 Lab Results 06/06/24 06/06/24 06/06/24 Range/Units 21:16 21:16 21:16 WBC 5.2 (3.8-10.6) k/uL RBC 4.05 L (4.30-5.90) m/uL Hgb 11.6 L (13.0-17.5) gm/dL Hct 34.7 L (39.0-53.0) % MCV 85.6 (80.0-100.0) fL MCH 28.7 (25.0-35.0) pg MCHC 33.5 (31.0-37.0) g/dL RDW 14.7 (11.5-15.5) % Plt Count 228 (150-450) k/uL MPV 8.6 Neutrophils % 48 % Lymphocytes % 41 % Monocytes % 5 % Eosinophils % 3 % Basophils % 1 % Neutrophils # 2.5 (1.3-7.7) k/uL Lymphocytes # 2.2 (1.0-4.8) k/uL Monocytes # 0.2 (0-1.0) k/uL Eosinophils # 0.1 (0-0.7) k/uL Basophils # 0.0 (0-0.2) k/uL PT 10.9 (10.0-12.5) sec INR 1.0 (<1.2) APTT 23.8 (22.0-30.0) sec Sodium (137-145) mmol/L Potassium (3.5-5.1) mmol/L Chloride (98-107) mmol/L Carbon Dioxide (22-30) mmol/L Anion Gap mmol/L BUN (9-20) mg/dL Creatinine (0.66-1.25) mg/dL Est GFR (CKD-EPI)AfAm (>60 ml/min/1.73 sqM) Est GFR (CKD-EPI)NonAf (>60 ml/min/1.73 sqM) Glucose (74-99) mg/dL Lactic Ac Sepsis Rflx Plasma Lactic Acid Sohail (0.7-2.0) mmol/L Calcium (8.4-10.2) mg/dL Magnesium (1.6-2.3) mg/dL Total Bilirubin (0.2-1.3) mg/dL AST (17-59) U/L ALT (4-49) U/L Alkaline Phosphatase (38-126) U/L Total Protein (6.3-8.2) g/dL Albumin (3.5-5.0) g/dL Salicylates mg/dL Urine Opiates Screen Not Detected (NotDetected) Ur Oxycodone Screen Not Detected (NotDetected) Urine Methadone Screen Not Detected (NotDetected) Acetaminophen ug/mL Ur Barbiturates Screen Not Detected (NotDetected) U Tricyclic Antidepress Not Detected (NotDetected) Ur Phencyclidine Scrn Not Detected (NotDetected) Ur Amphetamines Screen Detected H (NotDetected) U Methamphetamines Scrn Detected H (NotDetected) U Benzodiazepines Scrn Not Detected (NotDetected) Urine Cocaine Screen Not Detected (NotDetected) U Marijuana (THC) Screen Detected H (NotDetected) Serum Alcohol mg/dL 06/06/24 06/06/24 06/06/24 Range/Units 21:16 21:16 21:54 WBC (3.8-10.6) k/uL RBC (4.30-5.90) m/uL Hgb (13.0-17.5) gm/dL Hct (39.0-53.0) % MCV (80.0-100.0) fL MCH (25.0-35.0) pg MCHC (31.0-37.0) g/dL RDW (11.5-15.5) % Plt Count (150-450) k/uL MPV Neutrophils % % Lymphocytes % % Monocytes % % Eosinophils % % Basophils % % Neutrophils # (1.3-7.7) k/uL Lymphocytes # (1.0-4.8) k/uL Monocytes # (0-1.0) k/uL Eosinophils # (0-0.7) k/uL Basophils # (0-0.2) k/uL PT (10.0-12.5) sec INR (<1.2) APTT (22.0-30.0) sec Sodium 146 H (137-145) mmol/L Potassium 5.2 H (3.5-5.1) mmol/L Chloride 118 H (98-107) mmol/L Carbon Dioxide 20 L (22-30) mmol/L Anion Gap 8 mmol/L BUN 3 L (9-20) mg/dL Creatinine 0.58 L (0.66-1.25) mg/dL Est GFR (CKD-EPI)AfAm >90 (>60 ml/min/1.73 sqM) Est GFR (CKD-EPI)NonAf >90 (>60 ml/min/1.73 sqM) Glucose 81 (74-99) mg/dL Lactic Ac Sepsis Rflx Y Plasma Lactic Acid Sohail 2.2 H* (0.7-2.0) mmol/L Calcium 8.4 (8.4-10.2) mg/dL Magnesium 2.0 (1.6-2.3) mg/dL Total Bilirubin 0.8 (0.2-1.3) mg/dL AST 43 (17-59) U/L ALT 12 (4-49) U/L Alkaline Phosphatase <20 L (38-126) U/L Total Protein 6.8 (6.3-8.2) g/dL Albumin 3.7 (3.5-5.0) g/dL Salicylates <1.0 mg/dL Urine Opiates Screen (NotDetected) Ur Oxycodone Screen (NotDetected) Urine Methadone Screen (NotDetected) Acetaminophen <10.0 ug/mL Ur Barbiturates Screen (NotDetected) U Tricyclic Antidepress (NotDetected) Ur Phencyclidine Scrn (NotDetected) Ur Amphetamines Screen (NotDetected) U Methamphetamines Scrn (NotDetected) U Benzodiazepines Scrn (NotDetected) Urine Cocaine Screen (NotDetected) U Marijuana (THC) Screen (NotDetected) Serum Alcohol 232 H* mg/dL 06/07/24 Range/Units 00:56 WBC (3.8-10.6) k/uL RBC (4.30-5.90) m/uL Hgb (13.0-17.5) gm/dL Hct (39.0-53.0) % MCV (80.0-100.0) fL MCH (25.0-35.0) pg MCHC (31.0-37.0) g/dL RDW (11.5-15.5) % Plt Count (150-450) k/uL MPV Neutrophils % % Lymphocytes % % Monocytes % % Eosinophils % % Basophils % % Neutrophils # (1.3-7.7) k/uL Lymphocytes # (1.0-4.8) k/uL Monocytes # (0-1.0) k/uL Eosinophils # (0-0.7) k/uL Basophils # (0-0.2) k/uL PT (10.0-12.5) sec INR (<1.2) APTT (22.0-30.0) sec Sodium (137-145) mmol/L Potassium (3.5-5.1) mmol/L Chloride (98-107) mmol/L Carbon Dioxide (22-30) mmol/L Anion Gap mmol/L BUN (9-20) mg/dL Creatinine (0.66-1.25) mg/dL Est GFR (CKD-EPI)AfAm (>60 ml/min/1.73 sqM) Est GFR (CKD-EPI)NonAf (>60 ml/min/1.73 sqM) Glucose (74-99) mg/dL Lactic Ac Sepsis Rflx Plasma Lactic Acid Sohail 1.5 (0.7-2.0) mmol/L Calcium (8.4-10.2) mg/dL Magnesium (1.6-2.3) mg/dL Total Bilirubin (0.2-1.3) mg/dL AST (17-59) U/L ALT (4-49) U/L Alkaline Phosphatase (38-126) U/L Total Protein (6.3-8.2) g/dL Albumin (3.5-5.0) g/dL Salicylates mg/dL Urine Opiates Screen (NotDetected) Ur Oxycodone Screen (NotDetected) Urine Methadone Screen (NotDetected) Acetaminophen ug/mL Ur Barbiturates Screen (NotDetected) U Tricyclic Antidepress (NotDetected) Ur Phencyclidine Scrn (NotDetected) Ur Amphetamines Screen (NotDetected) U Methamphetamines Scrn (NotDetected) U Benzodiazepines Scrn (NotDetected) Urine Cocaine Screen (NotDetected) U Marijuana (THC) Screen (NotDetected) Serum Alcohol mg/dL - EKG Data -: EKG Interpreted by Me EKG shows normal: sinus rhythm, axis (Normal), intervals (Normal), QRS complexes (Normal), ST-T waves (Normal) Rate: normal (67 bpm) Interpretation: normal EKG Disposition Clinical Impression: Substance abuse Disposition: HOME SELF-CARE Condition: Good Instructions (If sedation given, give patient instructions): Adult Overdose (ED) Is patient prescribed a controlled substance at d/c from ED?: No Referrals: None,Stated [Primary Care Provider] - 1-2 days
[2024-06-06 21:32] LABS: Basophils % (A) 1 %; Eosinophils # (A) 0.1 k/uL (0-0.7); Eosinophils % (A) 3 %; HCT 34.7 % (39.0-53.0); HGB 11.6 gm/dL (13.0-17.5); Lymphocytes # (A) 2.2 k/uL (1.0-4.8); Lymphocytes % (A) 41 %; MCH 28.7 pg (25.0-35.0); MCHC 33.5 g/dL (31.0-37.0); MCV 85.6 fL (80.0-100.0); Mean Platelet Volume 8.6; Monocytes # (A) 0.2 k/uL (0-1.0); Monocytes % (A) 5 %; Neutrophils # (A) 2.5 k/uL (1.3-7.7); Neutrophils % (A) 48 %; Platelet Count 228 k/uL (150-450); RBC 4.05 m/uL (4.30-5.90); RDW 14.7 % (11.5-15.5); WBC 5.2 k/uL (3.8-10.6)
[2024-06-06 21:45] LABS: ALT 12 U/L (4-49); Acetaminophen <10.0 ug/mL; African American GFR (CKD) >90 (>60 ml/min/1.73 sqM); Albumin 3.7 g/dL (3.5-5.0); Anion Gap 8 mmol/L; Blood Urea Nitrogen 3 mg/dL (9-20); Calcium 8.4 mg/dL (8.4-10.2); Carbon Dioxide 20 mmol/L (22-30); Chloride 118 mmol/L (98-107); Glucose 81 mg/dL (74-99); Non-African American GFR(CKD) >90 (>60 ml/min/1.73 sqM); Salicylate <1.0 mg/dL; Sodium 146 mmol/L (137-145); Total Bilirubin 0.8 mg/dL (0.2-1.3)
[2024-06-06 21:53] LABS: Alcohol 232 mg/dL; Amphetamine Screen,Urine Detected (NotDetected); Barbiturate Screen,Urine Not Detected (NotDetected); Benzodiazepines Screen,Urine Not Detected (NotDetected); Cocaine Screen,Urine Not Detected (NotDetected); Methadone Screen, Urine Not Detected (NotDetected); Opiate Screen,Urine Not Detected (NotDetected); Oxycodone Screen, Urine Not Detected (NotDetected); Phencyclidine Screen,Urine Not Detected (NotDetected); Potassium 5.2 mmol/L (3.5-5.1); Tricyclic Antidepressant,Urine Not Detected (NotDetected)
[2024-06-06 21:54] LABS: AST 43 U/L (17-59); Alkaline Phosphatase <20 U/L (38-126); Total Protein 6.8 g/dL (6.3-8.2); Urn Cannabinoid Scrn Detected (NotDetected)
[2024-06-06 22:22] LABS: Partial Thromboplastin Time 23.8 sec (22.0-30.0); Prothrombin Time 10.9 sec (10.0-12.5)
[2024-06-07 05:51] VITALS: RESP 16
[2024-06-07 06:11] VITALS: BP 126/78; PULSE 63
== END 2024-06-07 06:19 | disposition home or self-care (01) ==
LOC: EC 20:46
DX: F19.10 Other psychoactive substance abuse, uncomplicated (principal); F17.200 Nicotine dependence, unspecified, uncomplicated; Z91.038 Other insect allergy status
CPT/HCPCS: 99285; 36415; 93005; 80053; 83605 ×2; 83735; 85025; 85610; 85730; 80306; 80143; 80179; G0480; 80320

== ENCOUNTER 2024-06-07 07:31 | Inpatient (IN) | payer MEDICAID, OTHER ==
[2024-06-07] MEDS: LORazepam 1 MG TAB PO STA (10:05)
[2024-06-07 10:22] LABS: Appearance,Urine Clear (Clear); Bilirubin,Urine Negative (Negative); Blood,Urine Negative (Negative); Color,Urine Colorless; Glucose,Urine (UA) Negative (Negative); Ketones,Urine Negative (Negative); Leukocyte Esterase,Urine Negative (Negative); Nitrite,Urine Negative (Negative); PH, Urine 6.5 (5.0-8.0); Protein,Urine Negative (Negative); Specific Gravity,Urine 1.002 (1.001-1.035); Urobilinogen,Urine <2.0 mg/dL (<2.0)
[2024-06-07 10:30] LABS: Amphetamine Screen,Urine Detected (NotDetected); Cocaine Screen,Urine Not Detected (NotDetected); Opiate Screen,Urine Not Detected (NotDetected); Phencyclidine Screen,Urine Not Detected (NotDetected); Urn Cannabinoid Scrn Detected (NotDetected)
[2024-06-07 10:31] LABS: Barbiturate Screen,Urine Not Detected (NotDetected); Benzodiazepines Screen,Urine Not Detected (NotDetected); Methadone Screen, Urine Not Detected (NotDetected); Oxycodone Screen, Urine Not Detected (NotDetected); Tricyclic Antidepressant,Urine Not Detected (NotDetected)
--- NOTE | 2024-06-07 10:41 | ED ---
Psych HPI - General Chief Complaint: Psychiatric Symptoms Stated Complaint: mental health Time Seen by Provider: 06/07/24 07:48 Source: patient, police Mode of arrival: ambulatory - History of Present Illness Initial Comments: 38 year old presents for suicidal attempt. patient reports that he took 5 Klonopin that he purchased in an attempt to harm himself. Patient states is ho meless and therefore is hopeless. He does drink alcohol but patient is currently sober. No other alleviating, precipitating or modifying factors - Related Data Home Medications Medication Instructions Recorded Confirmed Haloperidol Decanoate [Haldol D] 200 mg IM Q14D 06/07/24 06/07/24 Previous Rx's Medication Instructions Recorded FLUoxetine HCL [PROzac] 20 mg PO DAILY 7 Days #7 cap 06/10/24 Melatonin 5 mg PO HS PRN tab 06/10/24 Nicotine 14Mg/24Hr Patch [Habitrol] 1 patch TRANSDERM DAILY 14 Days 06/10/24 #14 patch Allergies Allergy/AdvReac Type Severity Reaction Status Date / Time flea Allergy Rash/Hives Uncoded 06/07/24 16:31 Review of Systems ROS Statement: Those systems with pertinent positive or pertinent negative responses have been documented in the HPI. ROS Other: All systems not noted in ROS Statement are negative. Past Medical History Past Medical History: GERD/Reflux, Hypertension, Liver Disease, Skin Disorder Additional Past Medical History / Comment(s): Hepatitis C, Pancreatitis, DDD, back pain, bilateral carpel tunnel syndrome. In the past has reported that he has heart disease that was found when he had kidney problems but he denies having a stress test or cardiac catheterization. History of Any Multi-Drug Resistant Organisms: None Reported MDRO Source:: unknown Past Surgical History: No Surgical Hx Reported, Unable to Obtain Additional Past Surgical History / Comment(s): Pt states he has had numerous "cysts" removed from where he injected IV drugs. Past Anesthesia/Blood Transfusion Reactions: No Reported Reaction, Unable to Obtain Additional Past Anesthesia/Blood Transfusion Reaction / Comment(s): In the past pt reported that he has never had surgery Past Psychological History: Anxiety, Bipolar, Depression, Schizophrenia Smoking Status: Current every day smoker Past Alcohol Use History: Abuse, Heavy Past Drug Use History: Heroin, Marijuana, Methamphetamine, Opiates - Past Family History Mother Family Medical History: Unable to Obtain, Rheumatoid Arthritis (RA) Additional Family Medical History / Comment(s): Mother is . Father Family Medical History: Coronary Artery Disease (CAD) General Exam Limitations: no limitations General appearance: alert, in no apparent distress Head exam: Present: atraumatic, normocephalic, normal inspection Eye exam: Present: normal appearance, PERRL, EOMI. Absent: scleral icterus, conjunctival injection, periorbital swelling ENT exam: Present: normal exam, mucous membranes moist Neck exam: Present: normal inspection. Absent: tenderness, meningismus, lymphadenopathy Respiratory exam: Present: normal lung sounds bilaterally. Absent: respiratory distress, wheezes, rales, rhonchi, stridor Cardiovascular Exam: Present: regular rate, normal rhythm, normal heart sounds. Absent: systolic murmur, diastolic murmur, rubs, gallop, clicks GI/Abdominal exam: Present: soft, normal bowel sounds. Absent: distended, tenderness, guarding, rebound, rigid Extremities exam: Present: normal inspection, full ROM, normal capillary refill. Absent: tenderness, pedal edema, joint swelling, calf tenderness Back exam: Present: normal inspection Neurological exam: Present: alert, oriented X3, CN II-XII intact Psychiatric exam: Present: depressed, suicidal ideation Skin exam: Present: warm, dry, intact, normal color. Absent: rash Course Vital Signs 06/07/24 06/07/24 07:43 14:57 Temperature 97.6 F Pulse Rate 84 74 Respiratory 18 18 Rate Blood Pressure 162/99 152/96 O2 Sat by Pulse 99 97 Oximetry Medical Decision Making - Medical Decision Making Was pt. sent in by a medical professional or institution (, PA, PRIVATE WATCHMAN, urgent care, hospital, or long term...) When possible be specific @ -No Did you speak to anyone other than the patient for history (EMS, parent, family, police, friend...)? What history was obtained from this source @ -No Did you review nursing and triage notes (agree or disagree)? Why? @ -I reviewed and agree with nursing and triage notes Were old charts reviewed (outside hosp., previous admission, EMS record, old EKG, old radiological studies, urgent care reports/EKG's, long term records)? Report findings @ -No old charts were reviewed Differential Diagnosis (chest pain, altered mental status, abdominal pain women, abdominal pain men, vaginal bleeding, weakness, fever, dyspnea, syncope, headache, dizziness, GI bleed, back pain, seizure, CVA, palpatations, mental health, musculoskeletal)? @ -Suicidal, homicidal, alcohol intoxication, intravenous drug use, depression EKG interpreted by me (3pts min.). @ -yes and demonstrates sinus rhythm with rate of 80. NM interval 165. QRS 110. QTC of 434. No diffuse ST segment elevations or depressions X-rays interpreted by me (1pt min.). @ -None done CT interpreted by me (1pt min.). @ -None done U/S interpreted by me (1pt. min.). @ -None done What testing was considered but not performed or refused? (CT, X-rays, U/S, labs)? Why? @ -None What meds were considered but not given or refused? Why? @ -None Did you discuss the management of the patient with other professionals (professionals i.e. , PA, PRIVATE WATCHMAN, lab, RT, psych nurse, social services specialist, appliquer zigzag, teacher, homicide squad commanding officer, caser in)? Give summary @ -Spoke with Wang the EPS social services specialist who does evaluate the patient and feels that the patient needs to be admitted Was smoking cessation discussed for >3mins.? @ -No Was critical care preformed (if so, how long)? @ -No Were there social determinants of health that impacted care today? How? (Homelessness, low income, unemployed, alcoholism, drug addiction, transportation, low edu. Level, literacy, decrease access to med. care, nursing home, rehab)? @ -Patient is homeless Was there de-escalation of care discussed even if they declined (Discuss DNR or withdrawal of care, Hospice)? DNR status @ -No What co-morbidities impacted this encounter? (DM, HTN, Smoking, COPD, CAD, Cancer, CVA, ARF, Chemo, Hep., AIDS, mental health diagnosis, sleep apnea, morbid obesity)? @ -Alcohol abuse, homelessness Was patient admitted / discharged? Hospital course, mention meds given and route, prescriptions, significant lab abnormalities, going to OR and other pertinent info. @ -Upon arrival patient seen and evaluated in room 13. Thorough history and physical exam was performed. Patient evaluated by EPS and needs admission. Patient does sign himself in willingly Undiagnosed new problem with uncertain prognosis? @ -No Drug Therapy requiring intensive monitorin Patient is sober. He is evaluated by EPS. Because of his suicidal ideations he requires admissiong for toxicity (Heparin, Nitro, Insulin, Cardizem)? @ -No Were any procedures done? @ -No Diagnosis/symptom? @ -acute overdose, depression, suicidal ideation Acute, or Chronic, or Acute on Chronic? @ -Acute Uncomplicated (without systemic symptoms) or Complicated (systemic symptoms)? @ -Complicated Side effects of treatment? @ -No Exacerbation, Progression, or Severe Exacerbation? @ -No Poses a threat to life or bodily function? How? (Chest pain, [place], [place], pneumonia, PE, COPD, DKA, ARF, appy, cholecystitis, CVA, Diverticulitis, Homicidal, Suicidal, threat to staff... and all critical care pts) @ -Yes as patient is reporting that he overdose because he is suicidal - Lab Data Result diagrams: 06/08/24 09:19 06/08/24 09:19 Lab Results 06/07/24 06/07/24 Range/Units 10:07 10:07 Urine Color Colorless Urine Appearance Clear (Clear) Urine pH 6.5 (5.0-8.0) Ur Specific [place] 1.002 (1.001-1.035) Urine Protein Negative (Negative) Urine Glucose (UA) Negative (Negative) Urine Ketones Negative (Negative) Urine Blood Negative (Negative) Urine Nitrite Negative (Negative) Urine Bilirubin Negative (Negative) Urine Urobilinogen <2.0 (<2.0) mg/dL Ur Leukocyte Esterase Negative (Negative) Urine Opiates Screen Not Detected (NotDetected) Ur Oxycodone Screen Not Detected (NotDetected) Urine Methadone Screen Not Detected (NotDetected) Ur Barbiturates Screen Not Detected (NotDetected) U Tricyclic Antidepress Not Detected (NotDetected) Ur Phencyclidine Scrn Not Detected (NotDetected) Ur Amphetamines Screen Detected H (NotDetected) U Methamphetamines Scrn Detected H (NotDetected) U Benzodiazepines Scrn Not Detected (NotDetected) Urine Cocaine Screen Not Detected (NotDetected) U Marijuana (THC) Screen Detected H (NotDetected) SARS-CoV-2 (PCR) Not Detected (Not Detectd) Disposition Clinical Impression: Suicidal behavior Disposition: TRANSFER TO PSYCH HOSP/UNIT Condition: Stable Is patient prescribed a controlled substance at d/c from ED?: No Time of Disposition: 10:38 Decision to Admit Reason: Admit from EC Decision Date: 06/07/24 Decision Time: 10:38
[2024-06-07] MEDS ORDERED: ACETAMINOPHEN TAB 325 MG TAB PO PRN (14:22)
[2024-06-07] MEDS ORDERED: MAGNESIUM HYDROXIDE 2,400 MG/30 ML CUP PO PRN (14:22)
[2024-06-07] MEDS ORDERED: MAG HYDROX/AL HYDROX/SIMETH 355 ML BOTTLE PO PRN (14:22)
[2024-06-07] MEDS: NICOTINE 14MG/24HR PATCH TRANSDERM SCH (15:44)
[2024-06-07] MEDS: FOLIC ACID 1 MG TAB PO SCH (15:45)
[2024-06-07] MEDS: THIAMINE 100 MG TAB PO SCH (15:45)
[2024-06-07] MEDS: IBUPROFEN 600 MG TAB PO PRN (15:45)
[2024-06-07] MEDS: MULTIVITAMINS, THERA 1 EACH TAB PO SCH (15:45)
[2024-06-07] MEDS: chlordiazePOXIDE 25 MG CAP PO SCH (15:45)
--- NOTE | 2024-06-08 01:51 | P.MDCNMH ---
<Chris Pang - Last Filed: 06/08/24 04:36> History of Present Illness H&P Date: 06/08/24 Chief Complaint: medical evaluation Patient is a 38-year-old male with PMH of GERD, hypertension, and mental health issues was seen for medical evaluation. Patient came to ER on 06/06/2024 for the evaluation of weakness and overdose with alcohol and Klonopin. Patient also reports PMH of anxiety, bipolar, depression as well as schizophrenia. Patient is a heavy smoker and has been smoking 1 pack/day x 27 years. Patient will also admits to be heavy alcohol drinker. Patient is also complaining of lower back pain which he states has been constant since 5 years pain is localized, nonrad iating, 7 out of 10 with no alleviating or exacerbating factors. Patient denies numbness, tingling or weakness in the lower extremities. Patient denies urinary or bowel incontinence. Patient denies any chest pain, shortness of breath, abdominal pain, nausea, vomiting, fever, chills. Patient was sleepy and was difficult to obtain history and perform physical examination at the time of interview. EKG from ER shows sinus rhythm with heart rate of 67. [place] interval 142 on the second. QRS duration of 105 ms. QTc 426 ms, no prolongation noted. No STT wave changes noted. While: Tmax 97.7 F, heart rate in 74, respiration rate 73, blood pressure 152/96, oxygen saturation 97% on room air. Review of systems: Pertinent positives and negatives as discussed in HPI, a complete review of systems was performed and all other systems are negative. Social history: Tobacco: Long-term smoker Alcohol: Alcohol abuse Recreational drugs: Marijuana, methamphetamine Travel: None Occupation: Homeless Family History: Noncontributory Physical examination: Vital signs reviewed General: Sleepy, non toxic, no distress, appears at stated age, normal weight Mouth: no lip lesion, mucus membranes moist Cardiovascular: S1S2 reg, no murmur, positive dorsalis pedis pulse bilateral, no edema Lungs: CTA bilateral, no rhonchi, no rales, no accessory muscle use Abdominal: soft, nontender to palpation, no guarding Ext: muscle strength 5 out of 5 in all 4 extremities grossly, no gross muscle atrophy, no contractures, Assessment/Plan: Patient is a 38-year-old male with PMH of GERD, hypertension, and mental health issues was seen for medical evaluation. Patient came to ER on 06/06/2024 for the evaluation of weakness and overdose with alcohol and Klonopin. Patient currently reports lower back pain which is chronic. #Chronic back pain Continue with acetaminophen 650 mg p.o. every 4 hour as needed Continue with ibuprofen 600 mg p.o. every 6 hour as needed #Hypertension Continue to monitor BP Past Medical History Past Medical History: GERD/Reflux, Hypertension, Liver Disease, Skin Disorder Additional Past Medical History / Comment(s): Hepatitis C, Pancreatitis, DDD, back pain, bilateral carpel tunnel syndrome. In the past has reported that he has heart disease that was found when he had kidney problems but he denies having a stress test or cardiac catheterization. History of Any Multi-Drug Resistant Organisms: None Reported MDRO Source:: unknown Past Surgical History: No Surgical Hx Reported Additional Past Surgical History / Comment(s): Pt states he has had numerous " cysts" removed from where he injected IV drugs. Past Anesthesia/Blood Transfusion Reactions: No Reported Reaction Additional Past Anesthesia/Blood Transfusion Reaction / Comment(s): Patient reports no surgical history. Past Psychological History: Anxiety, Bipolar, Depression, Schizophrenia Additional Psychological History / Comment(s): He has had multiple [facility] mental health admissions and suicide attempts in the past. Smoking Status: Current every day smoker Past Alcohol Use History: Abuse, Heavy Additional Past Alcohol Use History / Comment(s): Pt started smoking in 1994 and smokes 1ppd. Unable to obtain alcohol history but chart states pt has history of alcohol abuse. Past Drug Use History: Heroin, Marijuana, Methamphetamine, Opiates Additional Drug Use History / Comment(s): During this admission patient tested positive for Amphetamines, Methamphetamines, Cocaine, and Marijuana. Patient has past history of herion abuse. - Past Family History Mother Family Medical History: Unable to Obtain, Rheumatoid Arthritis (RA) Additional Family Medical History / Comment(s): Mother is . Father Family Medical History: Coronary Artery Disease (CAD) Medications and Allergies Home Medications Medication Instructions Recorded Confirmed Type FLUoxetine HCL [PROzac] 20 mg PO DAILY 06/07/24 06/07/24 History Haloperidol Decanoate [Haldol D] 200 mg IM Q14D 06/07/24 06/07/24 History Allergies Allergy/AdvReac Type Severity Reaction Status Date / Time flea Allergy Rash/Hives Uncoded 06/07/24 16:31 Physical Exam Vitals: Vital Signs Temp Pulse Pulse Resp BP BP Pulse Ox 06/07/24 18:14 73 146/83 06/07/24 15:11 97.7 F 92 16 140/84 95 06/07/24 14:57 74 18 152/96 97 06/07/24 07:43 97.6 F 84 18 162/99 99 Intake and Output 06/07/24 06/07/24 06/08/24 14:59 22:59 06:59 Other: Weight 80.739 kg 78.426 kg Results Labs: Abnormal Lab Results - Last 24 Hours (Table) 06/07/24 Range/Units 10:07 Ur Amphetamines Screen Detected H (NotDetected) U Methamphetamines Scrn Detected H (NotDetected) U Marijuana (THC) Screen Detected H (NotDetected) <Abid,Osama - Last Filed: 06/08/24 05:33> Physical Exam Vitals: Vital Signs Temp Pulse Pulse Resp BP BP Pulse Ox 06/07/24 18:14 73 146/83 06/07/24 15:11 97.7 F 92 16 140/84 95 06/07/24 14:57 74 18 152/96 97 06/07/24 07:43 97.6 F 84 18 162/99 99 Intake and Output 06/07/24 06/07/24 06/08/24 14:59 22:59 06:59 Other: Weight 80.739 kg 78.426 kg Results Labs: Abnormal Lab Results - Last 24 Hours (Table) 06/07/24 Range/Units 10:07 Ur Amphetamines Screen Detected H (NotDetected) U Methamphetamines Scrn Detected H (NotDetected) U Marijuana (THC) Screen Detected H (NotDetected) <Sawana,Nilson - Last Filed: 06/08/24 13:35> Physical Exam Vitals: Vital Signs Temp Pulse Pulse Resp BP BP Pulse Ox 06/08/24 05:57 97.9 F 67 18 149/80 100 06/07/24 18:14 73 146/83 06/07/24 15:11 97.7 F 92 16 140/84 95 06/07/24 14:57 74 18 152/96 97 Intake and Output 06/07/24 06/08/24 06/08/24 22:59 06:59 14:59 Other: Weight 78.426 kg Cranial Nerve Examination - Cranial Nerves Cranial Nerve II- Optic: Intact Cranial Nerve III- Oculomotor: Intact Cranial Nerve IV- Trochlear: Intact Cranial Nerve V- Trigeminal: Intact Cranial Nerve - Abducens: Intact Cranial Nerve VII- Facial: Intact Cranial Nerve VIII- Auditory: Intact Cranial Nerve IX- Glossopharyngeal: Intact Cranial Nerve X- Vagus: Intact Cranial Nerve XI- Accessory: Intact Cranial Nerve XII- Hypoglossal: Intact Results CBC & Chem 7: 06/08/24 09:19 06/08/24 09:19 Labs: Abnormal Lab Results - Last 24 Hours (Table) 06/08/24 06/08/24 Range/Units 09:19 09:19 Hgb 12.2 L (13.0-17.5) gm/dL Hct 37.8 L (39.0-53.0) % Chloride 115 H (98-107) mmol/L Carbon Dioxide 21 L (22-30) mmol/L Creatinine 0.65 L (0.66-1.25) mg/dL Glucose 117 H (74-99) mg/dL
[2024-06-08] MEDS: haloperidoL 5 MG TAB PO PRN (03:52)
[2024-06-08 05:58] VITALS: RESP 18; TEMP 97.9
[2024-06-08] MEDS: FLUoxetine HCL 20 MG CAP PO SCH (08:18)
[2024-06-08] MEDS: HALOPERIDOL LACTATE 5 MG/ML 1 ML VIAL IM PRN (08:46)
[2024-06-08] MEDS: LORazepam 2 MG/ML INJ IM STA (09:47)
[2024-06-08] MEDS: diphenhydrAMINE 50 MG/ML 1 ML VIAL IM STA (09:47)
[2024-06-08 10:05] LABS: Basophils % (A) 1 %; Eosinophils # (A) 0.1 k/uL (0-0.7); Eosinophils % (A) 2 %; HCT 37.8 % (39.0-53.0); HGB 12.2 gm/dL (13.0-17.5); Lymphocytes # (A) 1.5 k/uL (1.0-4.8); Lymphocytes % (A) 26 %; MCH 27.7 pg (25.0-35.0); MCHC 32.3 g/dL (31.0-37.0); MCV 85.7 fL (80.0-100.0); Mean Platelet Volume 8.2; Monocytes # (A) 0.3 k/uL (0-1.0); Monocytes % (A) 5 %; Neutrophils # (A) 3.6 k/uL (1.3-7.7); Neutrophils % (A) 63 %; Platelet Count 269 k/uL (150-450); RBC 4.41 m/uL (4.30-5.90); RDW 14.5 % (11.5-15.5); WBC 5.7 k/uL (3.8-10.6)
[2024-06-08 10:29] LABS: ALT 13 U/L (4-49); AST 26 U/L (17-59); African American GFR (CKD) >90 (>60 ml/min/1.73 sqM); Albumin 3.7 g/dL (3.5-5.0); Alkaline Phosphatase 46 U/L (38-126); Anion Gap 8 mmol/L; Blood Urea Nitrogen 11 mg/dL (9-20); Calcium 9.5 mg/dL (8.4-10.2); Carbon Dioxide 21 mmol/L (22-30); Chloride 115 mmol/L (98-107); Glucose 117 mg/dL (74-99); Non-African American GFR(CKD) >90 (>60 ml/min/1.73 sqM); Potassium 3.7 mmol/L (3.5-5.1); Sodium 144 mmol/L (137-145); Total Bilirubin 0.4 mg/dL (0.2-1.3); Total Protein 6.5 g/dL (6.3-8.2)
[2024-06-08] MEDS: HALOPERIDOL LACTATE 5 MG/ML 1 ML VIAL IM STA (13:02)
[2024-06-08] MEDS: busPIRone HCl 5 MG TAB PO SCH (15:28)
[2024-06-08] MEDS: chlordiazePOXIDE 25 MG CAP PO SCH (15:28)
--- NOTE | 2024-06-08 15:33 | P.HP ---
Psychiatric H&P - . History & Physical: Allergies Allergy/AdvReac Type Severity Reaction Status Date / Time flea Allergy Rash/Hives Uncoded 06/07/24 16:31 Vital Signs Temp 97.9 F 06/08/24 05:57 Pulse 67 06/08/24 05:57 Resp 18 06/08/24 05:57 BP 149/80 06/08/24 05:57 Pulse Ox 100 06/08/24 05:57 FiO2 Intake & Output 06/07/24 06/08/24 06/08/24 18:59 06:59 18:59 Weight 78.426 kg Laboratory Last Values WBC 5.7 k/uL (3.8-10.6) 06/08/24 09:19 RBC 4.41 m/uL (4.30-5.90) 06/08/24 09:19 Hgb 12.2 gm/dL (13.0-17.5) L 06/08/24 09:19 Hct 37.8 % (39.0-53.0) L 06/08/24 09:19 MCV 85.7 fL (80.0-100.0) 06/08/24 09:19 MCH 27.7 pg (25.0-35.0) 06/08/24 09:19 MCHC 32.3 g/dL (31.0-37.0) 06/08/24 09:19 RDW 14.5 % (11.5-15.5) 06/08/24 09:19 Plt Count 269 k/uL (150-450) 06/08/24 09:19 MPV 8.2 06/08/24 09:19 Neutrophils % 63 % 06/08/24 09:19 Lymphocytes % 26 % 06/08/24 09:19 Monocytes % 5 % 06/08/24 09:19 Eosinophils % 2 % 06/08/24 09:19 Basophils % 1 % 06/08/24 09:19 Neutrophils # 3.6 k/uL (1.3-7.7) 06/08/24 09:19 Lymphocytes # 1.5 k/uL (1.0-4.8) 06/08/24 09:19 Monocytes # 0.3 k/uL (0-1.0) 06/08/24 09:19 Eosinophils # 0.1 k/uL (0-0.7) 06/08/24 09:19 Basophils # 0.0 k/uL (0-0.2) 06/08/24 09:19 Sodium 144 mmol/L (137-145) 06/08/24 09:19 Potassium 3.7 mmol/L (3.5-5.1) 06/08/24 09:19 Chloride 115 mmol/L (98-107) H 06/08/24 09:19 Carbon Dioxide 21 mmol/L (22-30) L 06/08/24 09:19 Anion Gap 8 mmol/L 06/08/24 09:19 BUN 11 mg/dL (9-20) 06/08/24 09:19 Creatinine 0.65 mg/dL (0.66-1.25) L 06/08/24 09:19 Est GFR (CKD-EPI)AfAm >90 (>60 ml/min/1.73 sqM) 06/08/24 09:19 Est GFR (CKD-EPI)NonAf >90 (>60 ml/min/1.73 sqM) 06/08/24 09:19 Glucose 117 mg/dL (74-99) H 06/08/24 09:[address] Glu mg/dL 103 mg/dL 06/08/24 09:19 Hemoglobin A1c 5.2 % (<=6.0) 06/08/24 09:19 Calcium 9.5 mg/dL (8.4-10.2) 06/08/24 09:19 Magnesium 2.0 mg/dL (1.6-2.3) 06/08/24 09:19 Total Bilirubin 0.4 mg/dL (0.2-1.3) 06/08/24 09:19 AST 26 U/L (17-59) 06/08/24 09:19 ALT 13 U/L (4-49) 06/08/24 09:19 Alkaline Phosphatase 46 U/L (38-126) 06/08/24 09:19 Total Protein 6.5 g/dL (6.3-8.2) 06/08/24 09:19 Albumin 3.7 g/dL (3.5-5.0) 06/08/24 09:19 TSH 0.750 mIU/L (0.465-4.680) 06/08/24 09:19 Urine Color Colorless 06/07/24 10:07 Urine Appearance Clear (Clear) 06/07/24 10:07 Urine pH 6.5 (5.0-8.0) 06/07/24 10:07 Ur Specific [place] 1.002 (1.001-1.035) 06/07/24 10:07 Urine Protein Negative (Negative) 06/07/24 10:07 Urine Glucose (UA) Negative (Negative) 06/07/24 10:07 Urine Ketones Negative (Negative) 06/07/24 10:07 Urine Blood Negative (Negative) 06/07/24 10:07 Urine Nitrite Negative (Negative) 06/07/24 10:07 Urine Bilirubin Negative (Negative) 06/07/24 10:07 Urine Urobilinogen <2.0 mg/dL (<2.0) 06/07/24 10:07 Ur Leukocyte Esterase Negative (Negative) 06/07/24 10:07 Urine Opiates Screen Not Detected (NotDetected) 06/07/24 10:07 Ur Oxycodone Screen Not Detected (NotDetected) 06/07/24 10:07 Urine Methadone Screen Not Detected (NotDetected) 06/07/24 10:07 Ur Barbiturates Screen Not Detected (NotDetected) 06/07/24 10:07 U Tricyclic Antidepress Not Detected (NotDetected) 06/07/24 10:07 Ur Phencyclidine Scrn Not Detected (NotDetected) 06/07/24 10:07 Ur Amphetamines Screen Detected (NotDetected) H 06/07/24 10:07 U Methamphetamines Scrn Detected (NotDetected) H 06/07/24 10:07 U Benzodiazepines Scrn Not Detected (NotDetected) 06/07/24 10:07 Urine Cocaine Screen Not Detected (NotDetected) 06/07/24 10:07 U Marijuana (THC) Screen Detected (NotDetected) H 06/07/24 10:07 SARS-CoV-2 (PCR) Not Detected (Not Detectd) 06/07/24 10:07 IDENTIFYING DATA: Patient is a 38-year-old male. Single, homeless, unemployed HPI: Pt is well known to the unit with history of polysubstance abuse, med seeking behavior, schizoaffective disorder, and malingering. He is admitted for suicide attempt after taking 5 klonopin. Per staff, since being on the unit, he has been threatening others, banging on contreras, and seeking medications. He eventually received emergency IM this am and has been sleeping since. History below is from admission H and P in 2022: PAST PSYCHIATRIC HISTORY: he has a hx of several suicide attempts and drugs overdoses. Got his haldol shot last week at [facility]. Sees Ranulfo Hamilton, and Dr Mckeon at [facility]. patients last psychiatric hospitaliztion was in june 2023. PMH: Past Medical History: No Reported History, Unable to Obtain, GERD/Reflux, Hypertension, Liver Disease Additional Past Medical History / Comment(s): Hepatitis C, DDD, back pain, bilateral carpel tunnel syndrome. He reports that he has heart disease that was found when he had kidney problems but he denies having a stress test or cardiac catheterization. History of Any Multi-Drug Resistant Organisms: None Reported MDRO Source:: unknown Past Surgical History: No Surgical Hx Reported, Unable to Obtain Additional Past Surgical History / Comment(s): Pt states he has had numerous "cysts" removed from where he injected IV drugs. Past Anesthesia/Blood Transfusion Reactions: No Reported Reaction, Unable to Obtain Additional Past Anesthesia/Blood Transfusion Reaction / Comment(s): Pt states he has never had surgery. Past Psychological History: Anxiety, Depression Smoking Status: Current every day smoker Past Alcohol Use History: None Reported Past Drug Use History: Heroin, Marijuana, Methamphetamine ALLERGIES: NO KNOWN DRUG ALLERGIES CHEMICAL DEPENDENCY HISTORY: Patient uses marijuana, methamphetamines, and amphetamines. He is also a daily tobacco user. He reported a heavy history of etoh abuse in the past, FAMILY PSYCHIATRIC/SUBSTANCE USE HISTORY: No reported family psychiatric history SOCIAL HISTORY: [place] . Patient is currently homeless. He is . He has his GED. no children, does not work. MENTAL STATUS EXAM: General Appearance: Sleeping in bed Behavior: sleeping Speech: could not assess as pt is drowsy after reeiving IM for agitation Mood/Affect: could not assess as pt is drowsy after reeiving IM for agitation Suicidality/Homicidality: could not assess as pt is drowsy after reeiving IM for agitation Perceptions: could not assess as pt is drowsy after reeiving IM for agitation Though content/process: could not assess as pt is drowsy after reeiving IM for agitation Memory and concentration: could not assess as pt is drowsy after reeiving IM for agitation Judgment and insight: chronically poor/impulsive STRENGTHS/WEAKNESSES: strength is that patient has access to medical care. Weakness is that the patient is a heavy user substances and very poor insight/judgment. INTELLECT: average IMPRESSIONS: Schizoaffective disorder, depressive type Methamphetamine use disorder Cannabis use disorder Alcohol abuse Benzodiazapine abuse Nicotine dependence Malingering Homelessness PLAN: -Patient is admitted under voluntary status to [facility] for stabilization of psychiatric symptoms and safety. -Medications : Prozac 20 mg daily, Haldol D 200mg q 14 days, next due on 06/13/24, BUspar 7.5 mg tid -Librium protocol with CIWA -currently on Haldol 5 mg PRN PO and IM for agitation, but will consider switching to therazine if he receives multiple doses -Patient was counselled on substance abuse however is pre-contemplative -Internal Medicine consult to perform medical evaluation and physical. -NRT - nicotine patch -SW on board for discharge planning. Encourage patient to participate in groups to work on coping skills. 06/08/24 15:28 06/08/24 15:31
[2024-06-08] MEDS: OLANZapine ODT 5 MG TAB PO PRN (20:03)
[2024-06-09 07:05] VITALS: PULSE 85
[2024-06-09 08:19] VITALS: BP 135/94
[2024-06-09] MEDS ORDERED: WATER FOR INJECTION, STERILE 10 ML IV ONE (09:10)
[2024-06-09] MEDS: OLANZapine 10 MG VIAL IM PRN (09:13)
[2024-06-09 11:22] LABS: Chol/HDL Ratio 4.01 Ratio; LDL Cholesterol,Calculated 78.8 mg/dL (0.0-131.0)
[2024-06-09] MEDS: flUPHENAZine 2.5 MG/ML (MDV) 10 ML VIAL IM ONE (12:01)
[2024-06-09] MEDS: LORazepam 2 MG/ML INJ IM STA (12:01)
[2024-06-09] MEDS: diphenhydrAMINE 50 MG/ML 1 ML VIAL IM STA (12:01)
--- NOTE | 2024-06-09 14:26 | P.PN ---
Progress Note - Text Interval history: per staff, patient has been very demanding. He has received multiple items, but it is usually due to his demanding nature and him punching contreras and aggravating other patients when not given. Patient was seen [wandering the hallways] and was directable and agreeable to speak with film writer. patient is demanding that he be switched to Wellbutrin. When told to talk with his primary team about it, patient got angry and then punched the wall multiple times. He then began yelling in the hallway. This continued to escalate, and eventually security came up and patient needed and other IM. At this time patient denies any suicidal or homicidal ideations intent or plan. Denies any Auditory or visual hallucinations. Patient denies any side effects from the medications and has been compliant with meds. Mental status exam: General Appearance: appears older than stated age Behavior: agitated, uncooperative Speech: Patient's speech is fluent and nonpressured. Mood/Affect: Mood is improving mildly, affect is congruent and constricted. Suicidality/Homicidality: Patient denies having any suicidal or homicidal ideation intent or plan. Perceptions: Patient denies any auditory or visual hallucinations. Though content/process: [There is no evidence of any delusional thought content and thought process is linear and goal-directed.] Memory and concentration: AOX3, grossly intact for the purposes of this session Judgment and insight: poor Assessment/Plan: Continue with current diagnosis. Patient continues to meet criteria for inpatient psychiatric admission for symptom stabilization and safety. increase BuSpar to 10 mg 3 times a day. Continue other medications Monitor for medication compliance and for any psychotropic medication side effects. Will continue to monitor ongoing response to treatment. Encouraged participation in milieu.
[2024-06-09] MEDS: busPIRone HCl 10 MG TAB PO SCH (15:24)
[2024-06-09] MEDS: MELATONIN 5 MG TABLET PO PRN (20:37)
[2024-06-09] MEDS: chlordiazePOXIDE 25 MG CAP PO SCH (20:37)
--- NOTE | 2024-06-10 11:20 | P.DS ---
Providers Date of admission: 06/07/24 14:19 Expected date of discharge: 06/10/24 Attending physician: Gamal Ruvalcaba MD Consults: 06/07/24 14:22 Consult Physician Routine Consulting Provider: Doron James Consult Reason/Comments: history and physical/medical management Do you want consulting provider notified?: Yes Primary care physician: Stated None - Discharge Diagnosis(es) (1) Schizoaffective disorder, depressive type Current Visit: No Status: Acute Priority: High (2) Methamphetamine use disorder, moderate, dependence Current Visit: No Status: Acute Priority: High (3) Alcohol use disorder, severe, dependence Current Visit: No Status: Acute Priority: High (4) Benzodiazepine abuse Current Visit: No Status: Acute Priority: Medium (5) Cannabis use disorder, moderate, dependence Current Visit: No Status: Acute Priority: Medium (6) Homelessness Current Visit: No Status: Acute Priority: Medium (7) Malingering Current Visit: No Status: Acute Priority: Medium (8) Nicotine dependence Current Visit: No Status: Acute Priority: Low Hospital Course: Admission HPI: Admission note was completed by Dr Dixon " Pt is well known to the unit with history of polysubstance abuse, med seeking behavior, schizoaffective disorder, and malingering. He is admitted for suicide attempt after taking 5 klonopin. Per staff, since being on the unit, he has been threatening others, banging on wall s, and seeking medications. He eventually received emergency IM this am and has been sleeping since." Hospital course: Upon admission to the unit patient was directable and agreeable to commence anabel tment and signed adult voluntary form. Patient was initially bizarre aggressive psychotic, with time and treatment he eventually improved and got along well with other patients on the unit and followed unit protocol. Patient displayed medication seeking behavior and malingering behavior as well which is a chronic behavioral pattern. Patient was compliant with the medications and denied any side effects throughout hospital course. Patient was started on his home dose of Prozac 20 mg daily for mood/anxiety, patient is currently receiving Haldol D2 100 mg IM q. 14 days, last dose was given on 05/30, next dose will be due at [facility] on 06/13. Patient was also placed on Librium and Ativan as needed for alcohol withdrawal. Patient spoke of his stressors and engaged in therapy both group and individual. Patient was also seen by medical team for history and physical exam. Throughout the course of the hospitalization patient gradually improved with regards to mood, anxiety, psychosis, agitation, sleep and returned back to their baseline level of functioning. On the day of discharge patient denied any suicidal or homicidal ideations intent or plan denied any auditory or visual hallucinations. Patient endorsed wanting to live for his future. The patient denied any access to guns or weapons. Patient denied any paranoia and did not endorse any delusions. Patient does have a significant history of substance abuse and was counseled on abstaining from all substances including alcohol and marijuana. Patient was offered however declined inpatient substance-abuse rehab. Patient elected to do outpatient substance use treatment program through [facility]. Patient was also counseled on the medications and need for regular compliance and was encouraged to follow-up with their outpatient appointment for mental health and also for primary care. Patient will be discharged today, will be given resources for rehab and also intermediate information. Mental status exam: General Appearance: Patient appears to be disheveled, has a hardy, stated age is alert, pleasant, and cooperative. Patient is in no acute distress and has improved hygiene and grooming Behavior: Patient is calmly seated without any agitated behavior. Speech: Patient's speech is fluent and nonpressured. Mood/Affect: Patient reports their mood is "alright", affect is congruent and euthymic. Suicidality/Homicidality: Patient denies having any suicidal or homicidal ideation intent or plan. Perceptions: Patient denies any auditory or visual hallucinations. Though content/process: There is no evidence of any delusional thought content and thought process is linear and goal-directed. Memory and concentration: AOX3, grossly intact for the purposes of this session. Can spell "WORLD" backwards correctly. Judgment and insight: Chronically poor, however has improved with guarded prognosis Impression: Schizoaffective disorder, depressive type Methamphetamine use disorder Cannabis use disorder Alcohol abuse Benzodiazapine abuse Nicotine dependence Malingering Homelessness Plan: -Continue with discharge today as patient has improved and stabilized psychiatrically and is not currently an imminent threat to himself and/or others. Patient will remain at chronically elevated risk for harm to self and/or others due to his impulsivity and polysubstance abuse. -Continue medications: Continue with Prozac 20 mg daily for mood/anxiety, continue with Haldol D2 100 mg IM, last dose was given on 05/30, next dose will be due at [facility] on 06/13. -Patient was counseled on the need for medication compliance and appropriate f ollow-up at mental health and also primary care for medical issues. Patient verbalized understanding and agreed. -Social work to help coordinate patient's discharge today, will be given intermediate information and also resources for rehab. Social work also to arrange for patients follow up appointments with [facility] for psychiatric care along with follow up with primary care provider. -Patient counseled on abstaining from recreational drugs and marijuana and alcohol. Was informed/educated on the adverse effects on their physical and mental health. Patient verbally agreed and understood. Patient was offered substance abuse treatment however declined at this time. -Patient was instructed to return to the hospital or seek immediate medical care if their psychiatric or medical symptoms do worsen or reoccur. Allergies Allergy/AdvReac Type Severity Reaction Status Date / Time flea Allergy Rash/Hives Uncoded 06/07/24 16:31 Laboratory Results WBC 5.7 k/uL (3.8-10.6) 06/08/24 09:19 RBC 4.41 m/uL (4.30-5.90) 06/08/24 09:19 Hgb 12.2 gm/dL (13.0-17.5) L 06/08/24 09:19 Hct 37.8 % (39.0-53.0) L 06/08/24 09:19 MCV 85.7 fL (80.0-100.0) 06/08/24 09:19 MCH 27.7 pg (25.0-35.0) 06/08/24 09:19 MCHC 32.3 g/dL (31.0-37.0) 06/08/24 09:19 RDW 14.5 % (11.5-15.5) 06/08/24 09:19 Plt Count 269 k/uL (150-450) 06/08/24 09:19 MPV 8.2 06/08/24 09:19 Neutrophils % 63 % 06/08/24 09:19 Lymphocytes % 26 % 06/08/24 09:19 Monocytes % 5 % 06/08/24 09:19 Eosinophils % 2 % 06/08/24 09:19 Basophils % 1 % 06/08/24 09:19 Neutrophils # 3.6 k/uL (1.3-7.7) 06/08/24 09:19 Lymphocytes # 1.5 k/uL (1.0-4.8) 06/08/24 09:19 Monocytes # 0.3 k/uL (0-1.0) 06/08/24 09:19 Eosinophils # 0.1 k/uL (0-0.7) 06/08/24 09:19 Basophils # 0.0 k/uL (0-0.2) 06/08/24 09:19 Sodium 144 mmol/L (137-145) 06/08/24 09:19 Potassium 3.7 mmol/L (3.5-5.1) 06/08/24 09:19 Chloride 115 mmol/L (98-107) H 06/08/24 09:19 Carbon Dioxide 21 mmol/L (22-30) L 06/08/24 09:19 Anion Gap 8 mmol/L 06/08/24 09:19 BUN 11 mg/dL (9-20) 06/08/24 09:19 Creatinine 0.65 mg/dL (0.66-1.25) L 06/08/24 09:19 Est GFR (CKD-EPI)AfAm >90 (>60 ml/min/1.73 sqM) 06/08/24 09:19 Est GFR (CKD-EPI)NonAf >90 (>60 ml/min/1.73 sqM) 06/08/24 09:19 Glucose 117 mg/dL (74-99) H 06/08/24 09:[address] Glu mg/dL 103 mg/dL 06/08/24 09:19 Hemoglobin A1c 5.2 % (<=6.0) 06/08/24 09:19 Calcium 9.5 mg/dL (8.4-10.2) 06/08/24 09:19 Magnesium 2.0 mg/dL (1.6-2.3) 06/08/24 09:19 Total Bilirubin 0.4 mg/dL (0.2-1.3) 06/08/24 09:19 AST 26 U/L (17-59) 06/08/24 09:19 ALT 13 U/L (4-49) 06/08/24 09:19 Alkaline Phosphatase 46 U/L (38-126) 06/08/24 09:19 Total Protein 6.5 g/dL (6.3-8.2) 06/08/24 09:19 Albumin 3.7 g/dL (3.5-5.0) 06/08/24 09:19 Triglycerides 124.00 mg/dL (0.00-149.00) 06/08/24 09:19 Cholesterol 138.00 mg/dL (0.00-200.00) 06/08/24 09:19 LDL Cholesterol, Calc 78.8 mg/dL (0.0-131.0) 06/08/24 09:19 VLDL Cholesterol, Calc 24.80 mg/dL (5.00-40.00) 06/08/24 09:19 HDL Cholesterol 34.40 mg/dL (40.00-60.00) L 06/08/24 09:19 Cholesterol/HDL Ratio 4.01 Ratio 06/08/24 09:19 TSH 0.750 mIU/L (0.465-4.680) 06/08/24 09:19 Urine Color Colorless 06/07/24 10:07 Urine Appearance Clear (Clear) 06/07/24 10:07 Urine pH 6.5 (5.0-8.0) 06/07/24 10:07 Ur Specific [place] 1.002 (1.001-1.035) 06/07/24 10:07 Urine Protein Negative (Negative) 06/07/24 10:07 Urine Glucose (UA) Negative (Negative) 06/07/24 10:07 Urine Ketones Negative (Negative) 06/07/24 10:07 Urine Blood Negative (Negative) 06/07/24 10:07 Urine Nitrite Negative (Negative) 06/07/24 10:07 Urine Bilirubin Negative (Negative) 06/07/24 10:07 Urine Urobilinogen <2.0 mg/dL (<2.0) 06/07/24 10:07 Ur Leukocyte Esterase Negative (Negative) 06/07/24 10:07 Urine Opiates Screen Not Detected (NotDetected) 06/07/24 10:07 Ur Oxycodone Screen Not Detected (NotDetected) 06/07/24 10:07 Urine Methadone Screen Not Detected (NotDetected) 06/07/24 10:07 Ur Barbiturates Screen Not Detected (NotDetected) 06/07/24 10:07 U Tricyclic Antidepress Not Detected (NotDetected) 06/07/24 10:07 Ur Phencyclidine Scrn Not Detected (NotDetected) 06/07/24 10:07 Ur Amphetamines Screen Detected (NotDetected) H 06/07/24 10:07 U Methamphetamines Scrn Detected (NotDetected) H 06/07/24 10:07 U Benzodiazepines Scrn Not Detected (NotDetected) 06/07/24 10:07 Urine Cocaine Screen Not Detected (NotDetected) 06/07/24 10:07 U Marijuana (THC) Screen Detected (NotDetected) H 06/07/24 10:07 SARS-CoV-2 (PCR) Not Detected (Not Detectd) 06/07/24 10:07 Vital Signs Temp 97.9 F 06/08/24 05:57 Pulse 85 06/09/24 07:04 Resp 18 06/08/24 05:57 BP 135/94 06/09/24 08:16 Pulse Ox 100 06/08/24 05:57 FiO2 Intake & Output 06/09/24 06/10/24 06/10/24 18:59 06:59 18:59 Weight 80.289 kg Patient Condition at Discharge: Stable Plan - Discharge Summary Discharge Rx Participant: No New Discharge Prescriptions: New Nicotine 14Mg/24Hr Patch [Habitrol] 1 patch TRANSDERM DAILY 14 Days #14 patch Melatonin 5 mg PO HS PRN tab PRN Reason: Insomnia Continue FLUoxetine HCL [PROzac] 20 mg PO DAILY 7 Days #7 cap Haloperidol Decanoate [Haldol D] 200 mg IM Q14D Discharge Medication List Haloperidol Decanoate [Haldol D] 200 mg IM Q14D 06/07/24 [History] FLUoxetine HCL [PROzac] 20 mg PO DAILY 7 Days #7 cap 06/10/24 [Rx] Melatonin 5 mg PO HS PRN tab 06/10/24 [Rx] Nicotine 14Mg/24Hr Patch [Habitrol] 1 patch TRANSDERM DAILY 14 Days #14 patch 06/10/24 [Rx] Follow up Appointment(s)/Referral(s): None,Stated [Primary Care Provider] - 1-2 days Activity/Diet/Wound Care/Special Instructions: Avoid the use of street drugs and alcohol. Take all medications as prescribed. When you are in need of refills on your medications, please contact your outpatient medical provider and/or outpatient psychiatrist. Please go to your scheduled outpatient appointments for aftercare treatment. If symptoms return or become worse, call the crisis line at or and/or visit the nearest emergency room for assistance. National Suicide and Crisis Lifeline - call or text 572. Discharge Disposition: OTHER INSTITUTION NOT DEFINED
[2024-06-11] MEDS ORDERED: chlordiazePOXIDE 25 MG CAP PO SCH (09:00)
== END 2024-06-10 12:50 | disposition home or self-care (01) | DRG 750 ==
LOC: EC 07:31 → 3MHU 14:19
PROVIDERS: ADMIT Psychiatry & Neurology Psychiatry; ATTEND Psychiatry & Neurology Psychiatry
DX: F25.1 Schizoaffective disorder, depressive type (principal); B19.20 Unspecified viral hepatitis C without hepatic coma; F10.20 Alcohol dependence, uncomplicated; F15.20 Other stimulant dependence, uncomplicated; F13.10 Sedative, hypnotic or anxiolytic abuse, uncomplicated; F12.20 Cannabis dependence, uncomplicated; F31.9 Bipolar disorder, unspecified; I10 Essential (primary) hypertension; T42.4X2A Poisoning by benzodiazepines, intentional self-harm, initial encounter; T51.0X1A Toxic effect of ethanol, accidental (unintentional), initial encounter; Z11.52 Encounter for screening for COVID-19; F41.9 Anxiety disorder, unspecified; G89.29 Other chronic pain; M54.50 Low back pain, unspecified; K21.9 Gastro-esophageal reflux disease without esophagitis; F17.210 Nicotine dependence, cigarettes, uncomplicated; Z71.6 Tobacco abuse counseling; Z79.899 Other long term (current) drug therapy; Z91.51 Personal history of suicidal behavior; Z56.0 Unemployment, unspecified; Z59.01 Sheltered homelessness; Z59.12 Inadequate housing utilities; Z59.41 Food insecurity; Z59.82 Transportation insecurity; Z76.5 Malingerer [conscious simulation]; W22.01XA Walked into wall, initial encounter; Z71.41 Alcohol abuse counseling and surveillance of alcoholic; Z71.51 Drug abuse counseling and surveillance of drug abuser
CPT/HCPCS: 80053; 80061; 80306; 81003; 82075; 83036; 83735; 84443; 85025; 87635; 99285

== ENCOUNTER 2024-06-13 13:10 | Emergency (ER) | payer OTHER ==
[2024-06-13 13:20] VITALS: TEMP 98.5
--- NOTE | 2024-06-13 13:23 | ED ---
General Adult HPI - General Chief complaint: Alcohol Stated complaint: ETOH Time Seen by Provider: 06/13/24 13:12 Source: patient Mode of arrival: EMS Limitations: no limitations - History of Present Illness Initial comments: Dictation was produced using [employer] dictation software. please excuse any grammatical, word or spelling errors. Chief Complaint: 38-year-old alcoholic male presents to the ER for alcohol intoxication History of Present Illness: Patient is 38-year-old male well-known to the emergency department for multiple visitations for alcohol intoxication. Patient states that he drank too much today he was discovered by law enforcement on the streets behaving abnormally. EMS was called patient was brought to the ER. Patient states he drank too much. Denies any pain complaints. The ROS documented in this emergency department record has been reviewed and confirmed by me. Those systems with pertinent positive or negative responses have been documented in the HPI. All other systems are other negative and/or noncontributory. - Related Data Home Medications Medication Instructions Recorded Confirmed Haloperidol Decanoate [Haldol D] 200 mg IM Q14D 06/07/24 06/07/24 Previous Rx's Medication Instructions Recorded FLUoxetine HCL [PROzac] 20 mg PO DAILY 7 Days #7 cap 06/10/24 Melatonin 5 mg PO HS PRN tab 06/10/24 Nicotine 14Mg/24Hr Patch [Habitrol] 1 patch TRANSDERM DAILY 14 Days 06/10/24 #14 patch Allergies Allergy/AdvReac Type Severity Reaction Status Date / Time flea Allergy Rash/Hives Uncoded 06/07/24 16:31 Review of Systems ROS Statement: Those systems with pertinent positive or pertinent negative responses have been documented in the HPI. ROS Other: All systems not noted in ROS Statement are negative. Past Medical History Past Medical History: GERD/Reflux, Hypertension, Liver Disease, Skin Disorder Additional Past Medical History / Comment(s): Hepatitis C, Pancreatitis, DDD, back pain, bilateral carpel tunnel syndrome. In the past has reported that he has heart disease that was found when he had kidney problems but he denies having a stress test or cardiac catheterization. History of Any Multi-Drug Resistant Organisms: None Reported MDRO Source:: unknown Past Surgical History: No Surgical Hx Reported, Unable to Obtain Additional Past Surgical History / Comment(s): Pt states he has had numerous "cysts" removed from where he injected IV drugs. Past Anesthesia/Blood Transfusion Reactions: No Reported Reaction, Unable to Obtain Additional Past Anesthesia/Blood Transfusion Reaction / Comment(s): In the past pt reported that he has never had surgery Past Psychological History: Anxiety, Bipolar, Depression, Schizophrenia Smoking Status: Current every day smoker Past Alcohol Use History: Abuse, Heavy Past Drug Use History: Heroin, Marijuana, Methamphetamine, Opiates - Past Family History Mother Family Medical History: Unable to Obtain, Rheumatoid Arthritis (RA) Additional Family Medical History / Comment(s): Mother is . Father Family Medical History: Coronary Artery Disease (CAD) General Exam - General Exam Comments Initial Comments: PHYSICAL EXAM: General Impression: Alert and oriented x3, not in acute distress, inebriated, malodorous HEENT: Normocephalic atraumatic, extra-ocular movements intact, pupils equal and reactive to light bilaterally, mucous membranes moist. Cardiovascular: Heart regular rate and rhythm Chest: Able to complete full sentences, no retractions, no tachypnea Abdomen: abdomen soft, non-tender, non-distended, no organomegaly Musculoskeletal: Pulses present and equal in all extremities, no peripheral edema Motor: no focal deficits noted Neurological: CN II-XII grossly intact, no focal motor or sensory deficits noted Skin: Intact with no visualized rashes Psych: Normal affect and mood Limitations: no limitations Course Vital Signs 06/13/24 06/13/24 13:17 13:20 Temperature 98.5 F Pulse Rate 111 H 110 H Respiratory 20 16 Rate Blood Pressure 143/93 154/110 O2 Sat by Pulse 92 L 98 Oximetry Medical Decision Making - Medical Decision Making Was pt. sent in by a medical professional or institution ([facility], [employer], urgent care, hospital, or half-way...) When possible be specific @ -No Did you speak to anyone other than the patient for history (EMS, parent, family, police, friend...)? What history was obtained from this source @ -No Did you review nursing and triage notes (agree or disagree)? Why? @ -I reviewed and agree with nursing and triage notes Were old charts reviewed (outside hosp., previous admission, EMS record, old EKG, old radiological studies, urgent care reports/EKG's, half-way records)? Report findings @ -No old charts were reviewed Differential Diagnosis (chest pain, altered mental status, abdominal pain women, abdominal pain men, vaginal bleeding, musculoskeletal, weakness, fever, dyspnea, syncope, headache, dizziness, GI bleed, back pain, seizure, CVA, palpatations, mental health)? @ -Differential Altered Mental Status: Hypoglycemia, DKA, hypercapnia, ETOH, overdose, CO poisoning, trauma, myxedema coma, HTN encephalopathy, infection, encephalitis, psychosis, intercranial hemorrhage, hepatic encephalopathy, meningitis, CVA, this is not meant to be an all-inclusive list EKG interpreted by me (3pts min.). @ -None done X-rays interpreted by me (1pt min.). @ -None done CT interpreted by me (1pt min.). @ -None done U/S interpreted by me (1pt. min.). @ -None done What testing was considered but not performed or refused? (CT, X-rays, U/S, labs)? Why? @ -None What meds were considered but not given or refused? Why? @ -None Was smoking cessation discussed for >3mins.? @ -No Were there social determinants of health that impacted care today? How? (Homelessness, low income, unemployed, alcoholism, drug addiction, transportation, low edu. Level, literacy, decrease access to med. care, group home, rehab)? @ -No Was there de-escalation of care discussed even if they declined (Discuss DNR or withdrawal of care, Hospice)? DNR status @ -No What co-morbidities impacted this encounter? (DM, HTN, Smoking, COPD, CAD, Cancer, CVA, ARF, Chemo, Hep., AIDS, mental health diagnosis, sleep apnea, morbid obesity)? @ -None Was patient admitted / discharged? Hospital course, mention meds given and route, prescriptions, significant lab abnormalities, going to OR and other pertinent info. @ -38-year-old alcoholic male presents to the emergency department for alcohol intoxication. Vital signs upon arrival shows mild tachycardia however patient appears to be at baseline. He is well-known to us in the emergency department for multiple visitations for alcohol intoxication. Laboratory evaluation obtained. Labs are within acceptable limits. Hyponatremic. Patient given IV fluids. Serum alcohol is 177. Patient observed emergency department for sobri ety. Reevaluated bedside at 4:00 PM found to be clinically sober. Patient discharged. Did you discuss the management of the patient with other professionals (professionals i.e. , PA, M[employer]INE [employer]SEMBLER, lab, RT, psych nurse, social media assistant, surgical nurse practitioner, teacher, staff command and control officer, case therapist)? Give summary @ -No Was critical care preformed (if so, how long)? @ -No Undiagnosed new problem with uncertain prognosis? @ -No Drug Therapy requiring intensive monitoring for toxicity (Heparin, Nitro, Insulin, Cardizem)? @ -No Were any procedures done? @ -No Diagnosis/symptom? Acute, or Chronic, or Acute on Chronic? Uncomplicated (without systemic symptoms) or Complicated (systemic symptoms)? @ -Alcohol intoxication Side effects of treatment? @ -No Exacerbation, Progression, or Severe Exacerbation? @ -No Poses a threat to life or bodily function? How? (Chest pain, [place], [place], pneumonia, PE, COPD, DKA, ARF, appy, cholecystitis, CVA, Diverticulitis, Homicidal, Suicidal, threat to staff... and all critical care pts) @ -No - Lab Data Result diagrams: 06/13/24 13:22 06/13/24 13:22 Lab Results 06/13/24 06/13/24 Range/Units 13:22 13:22 WBC 10.9 H (3.8-10.6) k/uL RBC 5.04 (4.30-5.90) m/uL Hgb 14.0 (13.0-17.5) gm/dL Hct 43.1 (39.0-53.0) % MCV 85.5 (80.0-100.0) fL MCH 27.8 (25.0-35.0) pg MCHC 32.5 (31.0-37.0) g/dL RDW 15.4 (11.5-15.5) % Plt Count 491 H (150-450) k/uL MPV 7.7 Neutrophils % 73 % Lymphocytes % 19 % Monocytes % 6 % Eosinophils % 0 % Basophils % 1 % Neutrophils # 8.0 H (1.3-7.7) k/uL Lymphocytes # 2.0 (1.0-4.8) k/uL Monocytes # 0.6 (0-1.0) k/uL Eosinophils # 0.0 (0-0.7) k/uL Basophils # 0.1 (0-0.2) k/uL Sodium 147 H (137-145) mmol/L Potassium 3.8 (3.5-5.1) mmol/L Chloride 113 H (98-107) mmol/L Carbon Dioxide 21 L (22-30) mmol/L Anion Gap 13 mmol/L BUN 9 (9-20) mg/dL Creatinine 0.71 (0.66-1.25) mg/dL Est GFR (CKD-EPI)AfAm >90 (>60 ml/min/1.73 sqM) Est GFR (CKD-EPI)NonAf >90 (>60 ml/min/1.73 sqM) Glucose 88 (74-99) mg/dL Calcium 9.2 (8.4-10.2) mg/dL Magnesium 1.8 (1.6-2.3) mg/dL Serum Alcohol 177 mg/dL Disposition Clinical Impression: Alcohol intoxication Disposition: HOME SELF-CARE Condition: Good Instructions (If sedation given, give patient instructions): Alcohol Intoxica tion (ED) Is patient prescribed a controlled substance at d/c from ED?: No Referrals: None,Stated [Primary Care Provider] - 1-2 days Time of Disposition: 16:01
[2024-06-13 13:44] LABS: Basophils # (A) 0.1 k/uL (0-0.2); Basophils % (A) 1 %; Eosinophils % (A) 0 %; HCT 43.1 % (39.0-53.0); Lymphocytes % (A) 19 %; MCH 27.8 pg (25.0-35.0); MCHC 32.5 g/dL (31.0-37.0); MCV 85.5 fL (80.0-100.0); Mean Platelet Volume 7.7; Monocytes # (A) 0.6 k/uL (0-1.0); Monocytes % (A) 6 %; Neutrophils % (A) 73 %; Platelet Count 491 k/uL (150-450); RBC 5.04 m/uL (4.30-5.90); RDW 15.4 % (11.5-15.5); WBC 10.9 k/uL (3.8-10.6)
[2024-06-13 13:58] LABS: African American GFR (CKD) >90 (>60 ml/min/1.73 sqM); Anion Gap 13 mmol/L; Blood Urea Nitrogen 9 mg/dL (9-20); Calcium 9.2 mg/dL (8.4-10.2); Carbon Dioxide 21 mmol/L (22-30); Chloride 113 mmol/L (98-107); Glucose 88 mg/dL (74-99); Magnesium 1.8 mg/dL (1.6-2.3); Non-African American GFR(CKD) >90 (>60 ml/min/1.73 sqM); Potassium 3.8 mmol/L (3.5-5.1); Sodium 147 mmol/L (137-145)
[2024-06-13 14:03] LABS: Alcohol 177 mg/dL
[2024-06-13] MEDS: SODIUM CHLORIDE 0.9% 1,000 ML IV STA (14:12)
[2024-06-13 16:08] VITALS: BP 163/99; PULSE 99; RESP 18
== END 2024-06-13 16:16 | disposition home or self-care (01) ==
LOC: EC 13:10
DX: F10.129 Alcohol abuse with intoxication, unspecified (principal); F17.200 Nicotine dependence, unspecified, uncomplicated; Z88.8 Allergy status to other drugs, medicaments and biological substances; Y90.6 Blood alcohol level of 120-199 mg/100 ml
CPT/HCPCS: 99284 ×2; 96360 ×2; 36415; 80048; 83735; 85025; G0480; 80320

== ENCOUNTER 2024-06-13 19:14 | Emergency (ER) | payer OTHER ==
--- NOTE | 2024-06-13 19:57 | ED ---
General Adult HPI - General Stated complaint: Fall / ETOH Time Seen by Provider: 06/13/24 19:15 Source: patient, EMS, RN notes reviewed Mode of arrival: EMS Limitations: no limitations - History of Present Illness Initial comments: 38-year-old male presents emergency department with chief complaint of a fall. Patient was recently discharged from the facility states that he had a few alcoholic drinks. Patient is well-known to the emergency department chronic alcoholic. He fell striking his head. Patient states he is unsure if he passed out. He denies any extremity injuries states he has mild head and neck discomfort. - Related Data Home Medications Medication Instructions Recorded Confirmed Haloperidol Decanoate [Haldol D] 200 mg IM Q14D 06/07/24 06/07/24 Previous Rx's Medication Instructions Recorded FLUoxetine HCL [PROzac] 20 mg PO DAILY 7 Days #7 cap 06/10/24 Melatonin 5 mg PO HS PRN tab 06/10/24 Nicotine 14Mg/24Hr Patch [Habitrol] 1 patch TRANSDERM DAILY 14 Days 06/10/24 #14 patch Allergies Allergy/AdvReac Type Severity Reaction Status Date / Time flea Allergy Rash/Hives Uncoded 06/07/24 16:31 Review of Systems ROS Statement: Those systems with pertinent positive or pertinent negative responses have been documented in the HPI. ROS Other: All systems not noted in ROS Statement are negative. Past Medical History Past Medical History: GERD/Reflux, Hypertension, Liver Disease, Skin Disorder Additional Past Medical History / Comment(s): Hepatitis C, Pancreatitis, DDD, back pain, bilateral carpel tunnel syndrome. In the past has reported that he has heart disease that was found when he had kidney problems but he denies having a stress test or cardiac catheterization. History of Any Multi-Drug Resistant Organisms: None Reported MDRO Source:: unknown Past Surgical History: No Surgical Hx Reported, Unable to Obtain Additional Past Surgical History / Comment(s): Pt states he has had numerous "cysts" removed from where he injected IV drugs. Past Anesthesia/Blood Transfusion Reactions: No Reported Reaction, Unable to Obtain Additional Past Anesthesia/Blood Transfusion Reaction / Comment(s): In the past pt reported that he has never had surgery Past Psychological History: Anxiety, Bipolar, Depression, Schizophrenia Smoking Status: Current every day smoker Past Alcohol Use History: Abuse, Heavy Past Drug Use History: Heroin, Marijuana, Methamphetamine, Opiates - Past Family History Mother Family Medical History: Unable to Obtain, Rheumatoid Arthritis (RA) Additional Family Medical History / Comment(s): Mother is . Father Family Medical History: Coronary Artery Disease (CAD) General Exam Limitations: no limitations General appearance: alert, in no apparent distress Head exam: Present: atraumatic, normocephalic, normal inspection Eye exam: Present: normal appearance, PERRL, EOMI. Absent: scleral icterus, conjunctival injection, periorbital swelling ENT exam: Present: normal exam, mucous membranes moist Neck exam: Present: normal inspection. Absent: tenderness, meningismus, full ROM (C-collar), lymphadenopathy Cardiovascular Exam: Present: regular rate, normal rhythm, normal heart sounds. Absent: systolic murmur, diastolic murmur, rubs, gallop, clicks GI/Abdominal exam: Present: soft, normal bowel sounds. Absent: distended, tenderness, guarding, rebound, rigid Neurological exam: Present: alert, oriented X3, CN II-XII intact, reflexes normal. Absent: motor sensory deficit Skin exam: Present: warm, dry, intact, normal color. Absent: rash Course Vital Signs 06/13/24 06/13/24 06/13/24 19:36 20:47 21:01 Temperature 98.4 F 97.7 F Pulse Rate 89 89 Respiratory 17 15 Rate Blood Pressure 145/97 174/99 O2 Sat by Pulse 96 96 Oximetry Medical Decision Making - Medical Decision Making Was pt. sent in by a medical professional or institution ([facility], SALES CONTRACTS ANALYST, urgent care, hospital, or skilled nursing...) When possible be specific @ -No Did you speak to anyone other than the patient for history (EMS, parent, family, police, friend...)? What history was obtained from this source @ -No Did you review nursing and triage notes (agree or disagree)? Why? @ -I reviewed and agree with nursing and triage notes Were old charts reviewed (outside hosp., previous admission, EMS record, old EKG, old radiological studies, urgent care reports/EKG's, skilled nursing records)? Report findings @ -No old charts were reviewed Differential Diagnosis (chest pain, altered mental status, abdominal pain women, abdominal pain men, vaginal bleeding, weakness, fever, dyspnea, syncope, headache, dizziness, GI bleed, back pain, seizure, CVA, palpatations, mental health, musculoskeletal)? @ -[Intracranial hemorrhage, scalp contusion, skull fracture EKG interpreted by me (3pts min.). @ -None X-rays interpreted by me (1pt min.). @ -None done CT interpreted by me (1pt min.). @ -CT brain, C-spine show no acute intracranial mass effect no cervical fracture U/S interpreted by me (1pt. min.). @ -None done What testing was considered but not performed or refused? (CT, X-rays, U/S, labs)? Why? @ -None What meds were considered but not given or refused? Why? @ -None Did you discuss the management of the patient with other professionals (professionals i.e. , PA, SALES CONTRACTS ANALYST, lab, RT, psych nurse, psychiatric social worker supervisor, operations manager assistant, teacher, human resources officer, case resolution specialist)? Give summary @ -No Was smoking cessation discussed for >3mins.? @ -No Was critical care preformed (if so, how long)? @ -No Were there social determinants of health that impacted care today? How? (Homelessness, low income, unemployed, alcoholism, drug addiction, transportation, low edu. Level, literacy, decrease access to med. care, halfway, rehab)? @ -No Was there de-escalation of care discussed even if they declined (Discuss DNR or withdrawal of care, Hospice)? DNR status @ -No What co-morbidities impacted this encounter? (DM, HTN, Smoking, COPD, CAD, Cancer, CVA, ARF, Chemo, Hep., AIDS, mental health diagnosis, sleep apnea, morbid obesity)? @ -Alcohol abuse Was patient admitted / discharged? Hospital course, mention meds given and route, prescriptions, significant lab abnormalities, going to OR and other pertinent info. @ -Discharge CT brain, C-spine shows no acute intracranial hemorrhage or mass effect, patient has scalp hematoma will be discharged in stable condition. Undiagnosed new problem with uncertain prognosis? @ -No Drug Therapy requiring intensive monitoring for toxicity (Heparin, Nitro, Insulin, Cardizem)? @ -No Were any procedures done? @ -No Diagnosis/symptom? @ -Fall, scalp hematoma Acute, or Chronic, or Acute on Chronic? @ -acute Uncomplicated (without systemic symptoms) or Complicated (systemic symptoms)? @ -uncomplicated Side effects of treatment? @ -No Exacerbation, Progression, or Severe Exacerbation? @ -No Poses a threat to life or bodily function? How? (Chest pain, [place], [place], pneumonia, PE, COPD, DKA, ARF, appy, cholecystitis, CVA, Diverticulitis, Homicidal, Suicidal, threat to staff... and all critical care pts) @ -No Disposition Clinical Impression: Scalp hematoma Disposition: HOME SELF-CARE Condition: Stable Additional Instructions: Please return to the Emergency Department if symptoms worsen or any other concerns. Is patient prescribed a controlled substance at d/c from ED?: No Referrals: None,Stated [Primary Care Provider] - 1-2 days Time of Disposition: 21:24
--- NOTE | 2024-06-13 21:02 | CT ---
EXAMINATION TYPE: CT brain cspine wo con CT DLP: 1488.6 mGycm, Automated exposure control for dose reduction was used. DATE OF EXAM: 06/13/2024 8:02 PM COMPARISON: None. CLINICAL INDICATION:Male, 38 years old with history of pain; fall TECHNIQUE: Brain: Multiple axial CT images of the brain were obtained without IV contrast. Cspine: Axial CT images from the skull base to the inferior aspect of T2 we obtained without intraven ous contrast. Coronal and sagittal reformatted images were also reviewed. . FINDINGS: Brain: Extra-axial spaces: No abnormal extra-axial fluid collections. Ventricular system: Within normal limits Cerebral parenchyma: No acute intraparenchymal hemorrhage or mass effect. The chou-white junction is well differentiated. Cerebellum: Unremarkable. Mass effect: No evidence of midline shift. Intracranial vasculature: unremarkable Soft tissues: Large soft tissue hematoma is seen along the right posterior scalp. Calvarium/osseous structures: No acute depressed skull fracture. Paranasal sinuses and mastoid air cells: Mild mucosal thickening of the left maxillary sinus. Visualized orbits: Orbital contents are intact. Cervical spine: Fracture: No acute fractures. Osseous structures: Unremarkable Vertebral alignment: Within normal limits. Spinal canal/Neural Foramina: No evidence of significant spinal canal narrowing. No evidence for sign ificant neural foraminal stenosis. Neck soft tissues: Prevertebral soft tissues are within normal limits. Other: The airway is patent. The lung apices are clear. IMPRESSION: 1. No acute intracranial process. 2. Large right posterior scalp soft tissue hematoma. 3. No evidence of acute cervical spinal fracture.
[2024-06-13 21:51] VITALS: BP 175/99; PULSE 78; RESP 16; TEMP 98.1
== END 2024-06-13 21:54 | disposition home or self-care (01) ==
LOC: EC 19:14
DX: S00.03XA Contusion of scalp, initial encounter (principal); F17.200 Nicotine dependence, unspecified, uncomplicated; Z88.8 Allergy status to other drugs, medicaments and biological substances; W19.XXXA Unspecified fall, initial encounter
CPT/HCPCS: 70450; 72125; 99284

== ENCOUNTER 2024-06-14 00:17 | Observation (INO) | payer OTHER ==
[2024-06-14 02:04] LABS: Basophils # (A) 0.1 k/uL (0-0.2); Basophils % (A) 1 %; Eosinophils # (A) 0.1 k/uL (0-0.7); Eosinophils % (A) 1 %; HCT 40.8 % (39.0-53.0); HGB 13.3 gm/dL (13.0-17.5); Lymphocytes # (A) 2.5 k/uL (1.0-4.8); Lymphocytes % (A) 28 %; MCHC 32.7 g/dL (31.0-37.0); MCV 85.7 fL (80.0-100.0); Mean Platelet Volume 7.3; Monocytes # (A) 0.4 k/uL (0-1.0); Monocytes % (A) 5 %; Neutrophils # (A) 5.6 k/uL (1.3-7.7); Neutrophils % (A) 63 %; Platelet Count 438 k/uL (150-450); RBC 4.76 m/uL (4.30-5.90); RDW 14.8 % (11.5-15.5); WBC 8.8 k/uL (3.8-10.6)
[2024-06-14 02:17] LABS: ALT 13 U/L (4-49); AST 38 U/L (17-59); African American GFR (CKD) >90 (>60 ml/min/1.73 sqM); Albumin 4.3 g/dL (3.5-5.0); Alkaline Phosphatase 56 U/L (38-126); Anion Gap 13 mmol/L; Blood Urea Nitrogen 12 mg/dL (9-20); Calcium 9.2 mg/dL (8.4-10.2); Carbon Dioxide 22 mmol/L (22-30); Chloride 113 mmol/L (98-107); Glucose 89 mg/dL (74-99); Non-African American GFR(CKD) >90 (>60 ml/min/1.73 sqM); Potassium 4.1 mmol/L (3.5-5.1); Sodium 148 mmol/L (137-145); Total Bilirubin 0.3 mg/dL (0.2-1.3); Total Protein 7.2 g/dL (6.3-8.2)
[2024-06-14 02:18] LABS: Alcohol 300 mg/dL
--- NOTE | 2024-06-14 02:57 | ED ---
General Adult HPI - General Time Seen by Provider: 06/14/24 00:18 Source: patient, EMS, RN notes reviewed Mode of arrival: EMS Limitations: no limitations - History of Present Illness Initial comments: 38-year-old male presents emergency department with chief complaint alcohol intoxication. Patient reported with left hearing and drink a large amount of alcohol. Patient has no new physical complaints was seen earlier for head injury and negative CT. patient expresses suicidal ideation. Patient denies any drug use denies homicidal ideation - Related Data Home Medications Medication Instructions Recorded Confirmed Haloperidol Decanoate [Haldol D] 200 mg IM Q14D 06/07/24 06/07/24 Previous Rx's Medication Instructions Recorded FLUoxetine HCL [PROzac] 20 mg PO DAILY 7 Days #7 cap 06/10/24 Melatonin 5 mg PO HS PRN tab 06/10/24 Nicotine 14Mg/24Hr Patch [Habitrol] 1 patch TRANSDERM DAILY 14 Days 06/10/24 #14 patch Allergies Allergy/AdvReac Type Severity Reaction Status Date / Time flea Allergy Rash/Hives Uncoded 06/07/24 16:31 Review of Systems ROS Statement: Those systems with pertinent positive or pertinent negative responses have been documented in the HPI. ROS Other: All systems not noted in ROS Statement are negative. Past Medical History Past Medical History: GERD/Reflux, Hypertension, Liver Disease, Skin Disorder Additional Past Medical History / Comment(s): Hepatitis C, Pancreatitis, DDD, back pain, bilateral carpel tunnel syndrome. In the past has reported that he has heart disease that was found when he had kidney problems but he denies having a stress test or cardiac catheterization. History of Any Multi-Drug Resistant Organisms: None Reported MDRO Source:: unknown Past Surgical History: No Surgical Hx Reported, Unable to Obtain Additional Past Surgical History / Comment(s): Pt states he has had numerous "cysts" removed from where he injected IV drugs. Past Anesthesia/Blood Transfusion Reactions: No Reported Reaction, Unable to Obtain Additional Past Anesthesia/Blood Transfusion Reaction / Comment(s): In the past pt reported that he has never had surgery Past Psychological History: Anxiety, Bipolar, Depression, Schizophrenia Smoking Status: Current every day smoker Past Alcohol Use History: Abuse, Heavy Past Drug Use History: Heroin, Marijuana, Methamphetamine, Opiates - Past Family History Mother Family Medical History: Unable to Obtain, Rheumatoid Arthritis (RA) Additional Family Medical History / Comment(s): Mother is . Father Family Medical History: Coronary Artery Disease (CAD) General Exam General appearance: alert, in no apparent distress, appears intoxicated Head exam: Present: atraumatic, normocephalic, normal inspection ENT exam: Present: normal exam, mucous membranes moist Neck exam: Present: normal inspection, full ROM. Absent: tenderness, meningismus, lymphadenopathy Respiratory exam: Present: normal lung sounds bilaterally. Absent: respiratory distress, wheezes, rales, rhonchi, stridor Cardiovascular Exam: Present: regular rate, normal rhythm, normal heart sounds. Absent: systolic murmur, diastolic murmur, rubs, gallop, clicks GI/Abdominal exam: Present: soft, normal bowel sounds. Absent: distended, tenderness, guarding, rebound, rigid Neurological exam: Present: alert Medical Decision Making - Medical Decision Making Was pt. sent in by a medical professional or institution (, PA, SENIOR NETWORK ENGINEER, urgent care, hospital, or prison...) When possible be specific @ -No Did you speak to anyone other than the patient for history (EMS, parent, family, police, friend...)? What history was obtained from this source @ -No Did you review nursing and triage notes (agree or disagree)? Why? @ -I reviewed and agree with nursing and triage notes Were old charts reviewed (outside hosp., previous admission, EMS record, old EKG, old radiological studies, urgent care reports/EKG's, prison records)? Report findings @ -Reviewed CT, records from today Differential Diagnosis (chest pain, altered mental status, abdominal pain women, abdominal pain men, vaginal bleeding, weakness, fever, dyspnea, syncope, headache, dizziness, GI bleed, back pain, seizure, CVA, palpatations, mental health, musculoskeletal)? @ -Differential Mental Health Depression, anxiety, bipolar, psychosis, schizophrenia, borderline personality, situational depression, adjustment disorder, behavioral disorder, brain tumor, malingering, substance abuse, encephalopathy, medication reaction, dementia, hypothyroidism, degenerative neurologic disorder, lupus.... This is not meant to be all-inclusive list EKG interpreted by me (3pts min.). @ -None X-rays interpreted by me (1pt min.). @ -None done CT interpreted by me (1pt min.). @ -None done U/S interpreted by me (1pt. min.). @ -None done What testing was considered but not performed or refused? (CT, X-rays, U/S, labs)? Why? @ -None What meds were considered but not given or refused? Why? @ -None Did you discuss the management of the patient with other professionals (professionals i.e. , PA, SENIOR NETWORK ENGINEER, lab, RT, psych nurse, director social service, kiln car repairer, teacher, information security officer, caser)? Give summary @ -Sound for admission Was smoking cessation discussed for >3mins.? @ -No Was critical care preformed (if so, how long)? @ -No Were there social determinants of health that impacted care today? How? (Homelessness, low income, unemployed, alcoholism, drug addiction, transportation, low edu. Level, literacy, decrease access to med. care, skilled nursing, rehab)? @ -No Was there de-escalation of care discussed even if they declined (Discuss DNR or withdrawal of care, Hospice)? DNR status @ -No What co-morbidities impacted this encounter? (DM, HTN, Smoking, COPD, CAD, Cancer, CVA, ARF, Chemo, Hep., AIDS, mental health diagnosis, sleep apnea, morbid obesity)? @ -Alcohol abuse Was patient admitted / discharged? Hospital course, mention meds given and route, prescriptions, significant lab abnormalities, going to OR and other pertinent info. @ -Admitted patient present for acute alcohol intoxication alcohol level 300 patient is suicidal will be admitted. Undiagnosed new problem with uncertain prognosis? @ -No Drug Therapy requiring intensive monitoring for toxicity (Heparin, Nitro, Insulin, Cardizem)? @ -No Were any procedures done? @ -No Diagnosis/symptom? @ -Alcohol intoxication, suicide ideation Acute, or Chronic, or Acute on Chronic? @ -Acute Uncomplicated (without systemic symptoms) or Complicated (systemic symptoms)? @ -Complicated Side effects of treatment? @ -No Exacerbation, Progression, or Severe Exacerbation? @ -No Poses a threat to life or bodily function? How? (Chest pain, [place], [place], pneumonia, PE, COPD, DKA, ARF, appy, cholecystitis, CVA, Diverticulitis, Homicidal, Suicidal, threat to staff... and all critical care pts) @ -yes suicidal - Lab Data Result diagrams: 06/14/24 00:35 06/14/24 00:35 Lab Results 06/14/24 06/14/24 Range/Units 00:35 00:35 WBC 8.8 (3.8-10.6) k/uL RBC 4.76 (4.30-5.90) m/uL Hgb 13.3 (13.0-17.5) gm/dL Hct 40.8 (39.0-53.0) % MCV 85.7 (80.0-100.0) fL MCH 28.0 (25.0-35.0) pg MCHC 32.7 (31.0-37.0) g/dL RDW 14.8 (11.5-15.5) % Plt Count 438 (150-450) k/uL MPV 7.3 Neutrophils % 63 % Lymphocytes % 28 % Monocytes % 5 % Eosinophils % 1 % Basophils % 1 % Neutrophils # 5.6 (1.3-7.7) k/uL Lymphocytes # 2.5 (1.0-4.8) k/uL Monocytes # 0.4 (0-1.0) k/uL Eosinophils # 0.1 (0-0.7) k/uL Basophils # 0.1 (0-0.2) k/uL Sodium 148 H (137-145) mmol/L Potassium 4.1 (3.5-5.1) mmol/L Chloride 113 H (98-107) mmol/L Carbon Dioxide 22 (22-30) mmol/L Anion Gap 13 mmol/L BUN 12 (9-20) mg/dL Creatinine 0.77 (0.66-1.25) mg/dL Est GFR (CKD-EPI)AfAm >90 (>60 ml/min/1.73 sqM) Est GFR (CKD-EPI)NonAf >90 (>60 ml/min/1.73 sqM) Glucose 89 (74-99) mg/dL Calcium 9.2 (8.4-10.2) mg/dL Total Bilirubin 0.3 (0.2-1.3) mg/dL AST 38 (17-59) U/L ALT 13 (4-49) U/L Alkaline Phosphatase 56 (38-126) U/L Total Protein 7.2 (6.3-8.2) g/dL Albumin 4.3 (3.5-5.0) g/dL Serum Alcohol 300 H* mg/dL Disposition Clinical Impression: Suicidal ideation, Alcohol abuse, Alcoholic intoxication Disposition: ADMITTED IP TO THIS HOSP Referrals: None,Stated [Primary Care Provider] - 1-2 days Time of Disposition: 03:04
[2024-06-14] MEDS ORDERED: ONDANSETRON 4 MG/2 ML VIAL IVP PRN (03:04)
[2024-06-14] MEDS ORDERED: NALOXONE 0.4 MG/ML 1 ML VIAL IV PRN (03:04)
[2024-06-14] MEDS ORDERED: LORazepam 0.5 MG TAB PO PRN (03:05)
[2024-06-14] MEDS ORDERED: LORazepam 2 MG/ML INJ IV PRN ×2 (03:05)
[2024-06-14] MEDS: SODIUM CHLORIDE 0.9% 1,000 ML IV SCH (03:29)
[2024-06-14] MEDS: SODIUM CHLORIDE 0.9% 1,000 ML IV ONE (03:30)
[2024-06-14] MEDS: SODIUM CHLORIDE 0.9% 500 ML 500 ML IV ONE (03:31)
[2024-06-14 04:39] LABS: Amphetamine Screen,Urine Not Detected (NotDetected); Barbiturate Screen,Urine Not Detected (NotDetected); Benzodiazepines Screen,Urine Detected (NotDetected); Cocaine Screen,Urine Not Detected (NotDetected); Methadone Screen, Urine Not Detected (NotDetected); Opiate Screen,Urine Not Detected (NotDetected); Oxycodone Screen, Urine Not Detected (NotDetected); Phencyclidine Screen,Urine Not Detected (NotDetected); Tricyclic Antidepressant,Urine Not Detected (NotDetected); Urn Cannabinoid Scrn Detected (NotDetected)
--- NOTE | 2024-06-14 06:06 | P.HPIM ---
History of Present Illness H&P Date: 06/14/24 Chief Complaint: Alcohol intoxication 38-year-old male with alcohol dependence Patient was recently hospitalized in the mental health unit for suicidal ideation he was discharged few days ago. Came in earlier during the shift on June 13 late in the evening after sustaining a fall he reported having couple alcoholic beverages then fell and hit his head denies any loss of consciousness patient is not on blood thinners in the ED CT scan of the brain was performed no acute intracranial pathology however showed large right posterior hematoma. Patient was subsequently discharged then showed up again in the ED intoxicated with alcohol and reporting suicidal ideation Patient otherwise denies any chest pain trouble breathing GI bleeding denies any nausea vomiting he reports some back pain and pain in the back of his head review of systems Pertinent positives as noted in HPI. All other systems were reviewed and are negative on exam Constitutional: No acute distress, Eyes: Anicteric sclerae, moist conjunctiva, Pupils equal round reactive to light ENMT: Palpable subcutaneous swelling over the scalp of the head posteriorly tender to palpation no open wounds no bleeding Lungs: Clear to auscultation Clear to percussion Normal respiratory effort, no accessory muscle use Cardiovascular: Heart regular in rate and rhythm, No murmurs, gallops, or rubs No peripheral edema Abdominal: Soft Nontender, no guarding, rebound or rigidity Abdomen moving with respiration Normoactive bowel sounds Extremities: No digital cyanosis No clubbing Pedal pulses intact and symmetrical Radial pulses intact and symmetrical No calf tenderness Psychiatric: Alert and oriented to person, place Neuro Muscles Strength 5/5 in all 4 extremities Sensation to light touch grossly present throughout Cranial nerves II-XII grossly intact Past Medical History Past Medical History: GERD/Reflux, Hypertension, Liver Disease, Skin Disorder Additional Past Medical History / Comment(s): Hepatitis C, Pancreatitis, DDD, back pain, bilateral carpel tunnel syndrome. In the past has reported that he has heart disease that was found when he had kidney problems but he denies having a stress test or cardiac catheterization. History of Any Multi-Drug Resistant Organisms: None Reported MDRO Source:: unknown Past Surgical History: No Surgical Hx Reported, Unable to Obtain Additional Past Surgical History / Comment(s): Pt states he has had numerous "cysts" removed from where he injected IV drugs. Past Anesthesia/Blood Transfusion Reactions: No Reported Reaction, Unable to Obtain Additional Past Anesthesia/Blood Transfusion Reaction / Comment(s): In the past pt reported that he has never had surgery Past Psychological History: Anxiety, Bipolar, Depression, Schizophrenia Smoking Status: Current every day smoker Past Alcohol Use History: Abuse, Heavy Past Drug Use History: Heroin, Marijuana, Methamphetamine, Opiates - Past Family History Mother Family Medical History: Unable to Obtain, Rheumatoid Arthritis (RA) Additional Family Medical History / Comment(s): Mother is . Father Family Medical History: Coronary Artery Disease (CAD) Medications and Allergies Home Medications Medication Instructions Recorded Confirmed Type Haloperidol Decanoate [Haldol D] 200 mg IM Q14D 06/07/24 06/07/24 History FLUoxetine HCL [PROzac] 20 mg PO DAILY 7 Days #7 cap 06/10/24 Rx Melatonin 5 mg PO HS PRN tab 06/10/24 Rx Nicotine 14Mg/24Hr Patch [Habitrol] 1 patch TRANSDERM DAILY 14 Days 06/10/24 Rx #14 patch Allergies Allergy/AdvReac Type Severity Reaction Status Date / Time flea Allergy Rash/Hives Uncoded 06/07/24 16:31 Physical Exam Vitals: Vital Signs Temp Pulse Resp BP Pulse Ox 06/14/24 04:07 98.0 F 82 19 135/82 97 Intake and Output 06/13/24 06/13/24 06/14/24 14:59 22:59 06:59 Other: Weight 78.018 kg Results CBC & Chem 7: 06/14/24 00:35 06/14/24 00:35 Labs: Abnormal Lab Results - Last 24 Hours (Table) 06/14/24 06/14/24 Range/Units 00:35 04:05 Sodium 148 H (137-145) mmol/L Chloride 113 H (98-107) mmol/L U Benzodiazepines Scrn Detected H (NotDetected) U Marijuana (THC) Screen Detected H (NotDetected) Serum Alcohol 300 H* mg/dL Assessment and Plan Assessment: 38-year-old male alcohol dependence coming in due to alcohol intoxication reporting suicidal ideation discussed case with ED doctor and accepted the admission for acute severe alcohol intoxication and psych evaluation with anticipated length of stay less than 2 midnights Acute severe alcohol intoxication with alcohol dependence Monitor for alcohol withdrawal Benzos per CIWA scale Thiamine p.o. daily Fall precautions CT of the brain reviewed showed no acute intracranial pathology, shows large right posterior scalp soft tissues hematoma Suicide ideation Result precautions Psych consult Blood work reviewed unremarkable showing sodium 148 potassium 4.1 BUN 12 creatinine 0.7 Liver enzymes unremarkable AST 38 ALT 13 White count unremarkable 8.8 hemoglobin 13.3 unremarkable Full code GI prophylaxis Protonix p.o. daily 40 mg DVT prophylaxis SCDs
[2024-06-14] MEDS: PANTOPRAZOLE 40 MG TABLET PO SCH (07:09)
[2024-06-14] MEDS: LORazepam 1 MG TAB PO PRN (09:54)
[2024-06-14] MEDS: MULTIVITAMINS, THERA 1 EACH TAB PO SCH (09:54)
[2024-06-14] MEDS: ENOXAPARIN 40 MG/0.4 ML SYRINGE SQ SCH (09:54)
[2024-06-14] MEDS: FOLIC ACID 1 MG TAB PO SCH (09:54)
[2024-06-14] MEDS: NICOTINE 21MG/24HR PATCH TRANSDERM SCH (11:38)
[2024-06-14] MEDS: LORazepam 2 MG/ML INJ IV PRN (11:50)
--- NOTE | 2024-06-14 13:59 | P.CN ---
Psychiatric Consult - . Consult date: 06/14/24 Consult:: 06/14/24 13:05 IDENTIFYING DATA: Patient is a 38-year-old male. Single, homeless, unemployed HPI: Pt is well known to the unit with history of polysubstance abuse, med seeking behavior, schizoaffective disorder, and malingering. patient has had several admissions to both medical floors and psych in the past. most recently discharged from the mental health unit a week ago. Patient has history of frequent overdoses on medications and polysubstance abuse. He was positive for benzodiazepines and THC, blood alcohol was 300. Psychiatry was consulted for "suicidal ideations". Patient is currently on Prozac and Haldol D2 100 mg IM q. 14 days, he sees Dr. Edouard at [facility]. Patient was intoxicated on admission, he claims that he "just got drunk" and states that he has been drinking whiskey recently. States that he initially got drunk and fell and hit his head, claims that he started drinking the next day again. He claims that he was brought in by the ambulance that somebody called the ambulance to bring him to the hospital. He states that he is doing "fine" he was fairly calm, directable during interview. He claims that he would rather go to AA meetings, does not want to go to rehab. Does not want any anticraving medications at this time. He claims that he missed his Haldol D injection due at [facility], agreeable to take it today. Claims that he is sleeping and his appetite is fair. At this time patient is denying any suicidal homicidal ideations intent or plan. Denying any auditory or visual hallucinations. PAST PSYCHIATRIC HISTORY: he has a hx of several suicide attempts and drugs overdoses. Got his haldol shot last week at [facility]. Sees Ranulfo Hamilton, and Dr Mckeon at [facility]. patients last psychiatric hospitaliztion was 1 week ago, he is currently on Haldol D 200 mg IM q. 14 days and also Prozac. Patient was due for the Haldol D injection on 06/13, is agreeable to receive it today, next dose will be due on 06/28. PMH: Past Medical History: No Reported History, Unable to Obtain, GERD/Reflux, Hypertension, Liver Disease Additional Past Medical History / Comment(s): Hepatitis C, DDD, back pain, bilateral carpel tunnel syndrome. He reports that he has heart disease that was found when he had kidney problems but he denies having a stress test or cardiac catheterization. History of Any Multi-Drug Resistant Organisms: None Reported MDRO Source:: unknown Past Surgical History: No Surgical Hx Reported, Unable to Obtain Additional Past Surgical History / Comment(s): Pt states he has had numerous "cysts" removed from where he injected IV drugs. Past Anesthesia/Blood Transfusion Reactions: No Reported Reaction, Unable to Obtain Additional Past Anesthesia/Blood Transfusion Reaction / Comment(s): Pt states he has never had surgery. Past Psychological History: Anxiety, Depression Smoking Status: Current every day smoker Past Alcohol Use History: None Reported Past Drug Use History: Heroin, Marijuana, Methamphetamine ALLERGIES: NO KNOWN DRUG ALLERGIES CHEMICAL DEPENDENCY HISTORY: Patient uses marijuana, methamphetamines, and amphetamines. He is also a daily tobacco user. He reported a heavy history of etoh abuse in the past, FAMILY PSYCHIATRIC/SUBSTANCE USE HISTORY: No reported family psychiatric history SOCIAL HISTORY: Patient born and raised in [place] . Patient is currently homeless. He is . He has his GED. no children, does not work. MENTAL STATUS EXAM: General Appearance: Appears to be disheveled in appearance, has a hardy, some tattoos on his arms. He was sitting on the chair in his room. Behavior: Patient was directable, attempts to cooperate. Speech: Fluent, nonpressured. Normal tone Mood/Affect: Claims that his mood is "fine" denies any depression. Affect is constricted. Suicidality/Homicidality: Denies Perceptions: Denies Though content/process: Patient is concrete, poverty of content. Memory and concentration: Alert and oriented x 3, attempts to cooperate and has fair attention span Judgment and insight: chronically poor/impulsive, improving mildly IMPRESSIONS: Alcohol use disorder, currently in withdrawal Schizoaffective disorder Methamphetamine use disorder Cannabis use disorder Benzodiazapine abuse Nicotine dependence Malingering Homelessness PLAN: -At this time patient DOES NOT meet criteria for inpatient psychiatric admission. -Would recommend the following medication changes/additions: Patient is agreeable to receive Haldol D 200 mg IM today on 06/14, next dose will be due at [facility] on 06/28. Will reach out to [facility] liaison to have this documented in the records. Can continue with Prozac as prescribed for home dose. Would attempt to limit patient on controlled medications such as benzodiazepines and other sedatives as patient has a history of prescription abuse and polysubstance abuse. -CIWA protocol with PRN Ativan for alcohol withdrawal. Continue to monitor vital signs. -Continue 1:1 sitter for safety until patient is dishcarged from the hospital. -roundhouse worker to provide patient with outpatient mental health/psychiatry res [facility] for appropriate follow up upon discharge. She will be following up at [facility] for follow-up. -Retail Event Assistant spoke with patient about substance abuse and the harmful effects on medical and mental health, patient verbally understood and agreed. -roundhouse worker to provide patient substance use treatment resources including AA/NA meetings in the community. -roundhouse worker to provide patient with access line number to call for inpatient substance rehab -Communicated plan to patient's nurse -Psychiatry will sign off at this time -Please contact with any questions. 06/14/24 13:49
[2024-06-14 14:41] VITALS: BP 149/84; PULSE 90; RESP 20; TEMP 98
[2024-06-14] MEDS: HALOPERIDOL DECANOATE 100 MG/ML 1 ML VIAL IM SCH (14:50)
--- NOTE | 2024-06-14 14:57 | P.PN ---
Subjective Progress Note Date: 06/14/24 Principal diagnosis: I reviewed the documentation as provided by the ENOCH above, who is the original author of this note. I agree with the documented assessment and plan, with the following changes: none Hospital course: Patient is a 38-year-old male with a past medical history of alcoholism, polysubstance abuse, and schizoaffective disorder. He is well-known to our services secondary to multiple recurrent admissions for alcohol and substance abuse as well as mental health disorders. He presented to the emergency department with a chief complaint of alcohol intoxication and suicidal ideations. Upon arrival to our facility, patient underwent evaluation in the emergency department. Vital signs upon arrival show blood pressure 135/82, heart rate 82, respiratory rate 19, temp 98.0 F, and SpO2 of 97% on room air. Labs completed and reviewed. CBC unremarkable. BMP showing mild hyponatremia with sodium of 148 and hyperchloremia with chloride of 113. Liver profile unremarkable. Blood alcohol level is 300. Urine drug screen positive for benzodiazepines and marijuana. Patient was admitted under our services with c onsultation to psychiatry. Physical exam: Vital signs reviewed and stable. General: Nontoxic, no distress and appears stated age. Derm: Skin warm and dry, normal coloration for ethnicity. Head: Atraumatic, normocephalic and symmetric. Eyes: EOMs intact, no lid lag, and anicteric sclera Mouth: no lip lesions, mucus membranes moist Cardiovascular: regular rate and rhythm with normal S1S2, no murmur, positive posterior tibial pulses bilaterally, and cap refill < 2 seconds. Lungs: Respirations even, regular, and unlabored on room air. Lungs CTA bilaterally, no rhonchi, no rales, no wheezing, and no accessory muscle usage. Abdominal: soft, nontender to palpation, no guarding, no appreciable organomegaly Ext: ROM intact. No gross muscle atrophy, no edema, no contractures Neuro: Speech clear, face symmetrical and CN II-XII grossly intact with no noted focal neuro deficits Psych: Alert and oriented to person, place, time, and situation. Appropriate and pleasant affect. Assessment and Plan of Care: Alcohol withdrawal Alcohol intoxication in active alcoholic upon arrival -Order placed for monitoring of CIWA scores and patient to be medicated with Ativan 0.5 mg every 4 hours as needed for CIWA score of 4-5, Ativan 1 mg every 4 hours for CIWA score of 6-7, Ativan 2 mg every 3 hours CIWA score of 8-9, and Ativan 2 mg every 2 hours forr CIWA score of 10 or greater. -Continuous IV hydration. -Thiamine 100 mg daily, and Multivitamin daily, and Folate 1 mg daily -Seizure, fall, aspiration, and elopement precautions in place. -Urine drug screen -Continued close monitoring of electrolytes and replace as needed. -Telemetry monitoring. Suicidal ideations Schizoaffective disorder -Provide safe and supportive care. -Suicide precautions. -Consult to psychiatry, appreciate recommendations. CODE STATUS: Full code DVT prophylaxis: Lovenox Anticipated discharge date: Pending clinical course Anticipated discharge place: Home versus discharge to inpatient psychiatric unit Patient was seen independently by Nurse Pracitioner. This document was prepared using [employer] dictation software. Please allow for errors in architectural superintendent, while rare they do occur. Objective - Vital Signs Vital signs: Vital Signs Temp 97.7 F 06/14/24 07:37 Pulse 99 06/14/24 07:37 Resp 18 06/14/24 07:37 BP 137/83 06/14/24 07:37 Pulse Ox 95 06/14/24 07:37 FiO2 Intake & Output 06/13/24 06/14/24 06/14/24 18:59 06:59 18:59 Weight 78.018 kg - Labs CBC & Chem 7: 06/14/24 00:35 06/14/24 00:35 Labs: Abnormal Lab Results - Last 24 Hours (Table) 06/14/24 06/14/24 Range/Units 00:35 04:05 Sodium 148 H (137-145) mmol/L Chloride 113 H (98-107) mmol/L U Benzodiazepines Scrn Detected H (NotDetected) U Marijuana (THC) Screen Detected H (NotDetected) Serum Alcohol 300 H* mg/dL
--- NOTE | 2024-06-14 15:00 | P.DS ---
Providers Date of admission: 06/14/24 03:02 Expected date of discharge: 06/14/24 Attending physician: Maday Blair MD Consults: 06/14/24 03:04 Consult Physician Routine Consulting Provider: Gamal Ruvalcaba Consult Reason/Comments: SI Do you want consulting provider notified?: Yes Primary care physician: Stated None Hospital Course: Discharge Diagnosis: Alcohol withdrawal Alcohol intoxication in active alcoholic upon arrival Suicidal ideations. Patient currently denies having suicidal ideations at this time. He was seen and evaluated by psychiatry recommending administration of Haldol D 200 mg IM and clearing patient from psychiatry perspective for discharge recommending outpatient follow-up with [facility]. Schizoaffective disorder Hospital Course: Patient is a 38-year-old male with a past medical history of alcoholism, polysubstance abuse, and schizoaffective disorder. He is well-known to our services secondary to multiple recurrent admissions for alcohol and substance abuse as well as mental health disorders. He presented to the emergency department with a chief complaint of alcohol intoxication and suicidal ideations. Upon arrival to our facility, patient underwent evaluation in the emergency department. Vital signs upon arrival show blood pressure 135/82, heart rate 82, respiratory rate 19, temp 98.0 F, and SpO2 of 97% on room air. Labs completed and reviewed. CBC unremarkable. BMP showing mild hyponatremia with sodium of 148 and hyperchloremia with chloride of 113. Liver profile unremarkable. Blood alcohol level is 300. Urine drug screen positive for benzodiazepines and marijuana. Patient was admitted under our services with consultation to psychiatry. Patient currently denies having suicidal ideations at this time. He was seen and evaluated by psychiatry recommending administration of Haldol D 200 mg IM and clearing patient from psychiatry p erspective for discharge recommending outpatient follow-up with [facility]. Patient requesting discharge at this time, he is medically stable. Patient strongly encouraged to avoid any and all alcohol use and to follow-up outpatient with [facility] and residency clinic. Patient provided with list of outpatient resources including inpatient drug and alcohol rehabilitation facilities, counseling services, and local shelters. Physical exam: Vital signs reviewed and stable. General: Nontoxic, no distress and appears stated age. Derm: Skin warm and dry, normal coloration for ethnicity. Head: Atraumatic, normocephalic and symmetric. Eyes: EOMs intact, no lid lag, and anicteric sclera Mouth: no lip lesions, mucus membranes moist Cardiovascular: regular rate and rhythm with normal S1S2, no murmur, positive posterior tibial pulses bilaterally, and cap refill < 2 seconds. Lungs: Respirations even, regular, and unlabored on room air. Lungs CTA bilaterally, no rhonchi, no rales, no wheezing, and no accessory muscle usage. Abdominal: soft, nontender to palpation, no guarding, no appreciable organomegaly Ext: ROM intact. No gross muscle atrophy, no edema, no contractures Neuro: Speech clear, face symmetrical and CN II-XII grossly intact with no noted focal neuro deficits Psych: Alert and oriented to person, place, time, and situation. Appropriate and pleasant affect. A total of 31 minutes of time were spent preparing this complex discharge summary. Pt was discharged on 06/14/2024 at 3:11 PM. Patient was seen independently by Nurse Practitioner. This document was prepared using [employer] dictation software. Please allow for errors in soda worker while rare they do occur. I reviewed the documentation as provided by the ENOCH above, who is the original author of this note. I agree with the documented assessment and plan, with the following changes: none Patient Condition at Discharge: Stable Plan - Discharge Summary New Discharge Prescriptions: Continue FLUoxetine HCL [PROzac] 20 mg PO DAILY 7 Days #7 cap Haloperidol Decanoate [Haldol D] 200 mg IM Q14D Nicotine 14Mg/24Hr Patch [Habitrol] 1 patch TRANSDERM DAILY 14 Days #14 patch Melatonin 5 mg PO HS PRN tab PRN Reason: Insomnia Discharge Medication List Haloperidol Decanoate [Haldol D] 200 mg IM Q14D 06/07/24 [History] FLUoxetine HCL [PROzac] 20 mg PO DAILY 7 Days #7 cap 06/10/24 [Rx] Melatonin 5 mg PO HS PRN tab 06/10/24 [Rx] Nicotine 14Mg/24Hr Patch [Habitrol] 1 patch TRANSDERM DAILY 14 Days #14 patch 06/10/24 [Rx] Follow up Appointment(s)/Referral(s): Sabine Craft III, MD [STAFF PHYSICIAN] - 1-2 Days (Please schedule appointment for follow up at residency clinic) Patient Instructions/Handouts: Alcohol Intoxication (DC), Alcohol Withdrawal (DC) Activity/Diet/Wound Care/Special Instructions: Activity: As tolerated. Diet: Regular diet. Special Instructions: As discussed with you on multiple occasions, it is highly recommended that you avoid any and all alcohol use and attend an inpatient drug and alcohol rehabilitation facility. Continued alcohol abuse will only lead to further detrimental health conditions including cirrhosis and/or . Strongly recommend avoiding any drug use including meth. Also, as we discussed it is important to follow-up with [facility]. Thank you for allowing us to participate in your care, it was truly a pleasure h aving you for our patient!!! Discharge/Stand Alone Forms: AA Meetings [facility] - [facility], AA Meetings [facility], [facility], [facility] Shelters, Outpatient Counseling, Inp Substance Abuse Facilities, Outpatient Therapy List Discharge Disposition: HOME SELF-CARE
[2024-06-15] MEDS ORDERED: THIAMINE 100 MG TAB PO SCH (09:00)
== END 2024-06-14 15:46 | disposition home or self-care (01) ==
LOC: EC 00:17 → 4SSUR 03:02
PROVIDERS: ADMIT Internal Medicine; ATTEND Internal Medicine
DX: F10.239 Alcohol dependence with withdrawal, unspecified (principal); F10.229 Alcohol dependence with intoxication, unspecified; E87.1 Hypo-osmolality and hyponatremia; E87.8 Other disorders of electrolyte and fluid balance, not elsewhere classified; F12.10 Cannabis abuse, uncomplicated; F15.10 Other stimulant abuse, uncomplicated; F17.200 Nicotine dependence, unspecified, uncomplicated; F25.9 Schizoaffective disorder, unspecified; F31.9 Bipolar disorder, unspecified; F41.9 Anxiety disorder, unspecified; I10 Essential (primary) hypertension; W19.XXXA Unspecified fall, initial encounter; Y90.8 Blood alcohol level of 240 mg/100 ml or more; R45.851 Suicidal ideations; Z76.5 Malingerer [conscious simulation]; Z59.00 Homelessness unspecified; Z56.0 Unemployment, unspecified; Z82.49 Family history of ischemic heart disease and other diseases of the circulatory system
CPT/HCPCS: 96372 ×2; 96361; 96374; 99285; 36415; 80053; 85025; 80306; G0378; G0480; S4990; J2060; J1631; J1650; 80320

== ENCOUNTER 2024-07-01 18:50 | Observation (INO) | payer MEDICARE, OTHER ==
[~2024-07-01 18:50] MED LIST: SODIUM CHLORIDE 0.9% 1,000 ML BAG ONE
[2024-07-01] MEDS ORDERED: THIAMINE 100 MG/ML 2 ML VIAL ONE (20:32)
[2024-07-01] MEDS ORDERED: ACETAMINOPHEN TAB 325 MG TAB ONE (20:32)
[2024-07-01] MEDS ORDERED: LORazepam 2 MG/ML INJ ONE (21:12)
[2024-07-02] MEDS ORDERED: LORazepam 2 MG/ML INJ ONE ×2 (06:52→09:41)
[2024-07-02] MEDS ORDERED: THIAMINE 100 MG TAB ONE (08:23)
== END 2024-07-02 09:57 | disposition left against medical advice (07) ==
LOC: 6NMEDSUR 18:50
PROVIDERS: ADMIT Internal Medicine; ATTEND Internal Medicine
DX: F10.229 Alcohol dependence with intoxication, unspecified (principal); F10.239 Alcohol dependence with withdrawal, unspecified; D72.829 Elevated white blood cell count, unspecified; Y90.8 Blood alcohol level of 240 mg/100 ml or more; Z53.29 Procedure and treatment not carried out because of patient's decision for other reasons; Z91.148 Patient's other noncompliance with medication regimen for other reason
CPT/HCPCS: 96361; 96374; 99285

== ENCOUNTER 2024-07-02 15:00 | Inpatient (IN) | payer OTHER ==
--- NOTE | 2024-08-01 10:17 | CT ---
Patient Wilbert Rosenthal ID [id number] Order # EXAMINATION TYPE: CT facial bones wo con DATE OF EXAM: 07/04/2024 COMPARISON: No comparison available on downtime PACS. HISTORY: Fall CT DLP: 814.9 mGycm CONTRAST: 0 mL of Isovue 300 The paranasal sinuses are examined in the axial plane at 2 mm thick sections. Reconstructed images i n the coronal plane were obtained. There is dental amalgam scatter artifact Small retention cyst within the inferior posterior right maxillary sinus. Large mucosal thickening is through the left maxillary sinus. There may be an air-fluid level within the left maxillary sinus T he ethmoid air cells are clear. The sphenoid sinuses are clear. The frontal sinuses are clear. The septum is evaluated. There is septal deviation to the right. The ostiomeatal units are patent. Nasal bones are intact. Greater wings of the sphenoid are normal. Zygomatic arches are intact. Maxill ko spine is intact. No acute fractures or dislocations identified. IMPRESSION: 1. No acute osseous abnormality of bones. 2. Clinical correlation recommended for acute left maxillary sinusitis
--- NOTE | 2024-08-01 10:19 | CT ---
Patient Wilbert Rosenthal ID [id number] Order # EXAMINATION TYPE: CT brain wo con DATE OF EXAM: 07/04/2024 COMPARISON: No comparison available on downtime PACS. HISTORY: Fall hitting head CT DLP: 814.9 mGycm, Automated exposure control for dose reduction was used. CONTRAST: Patient injected with 0 mL of Isovue 300. CT of the brain is performed utilizing 3 mm thick sections through the posterior fossa and 3 mm thick sections through the remaining calvarium. Study is performed within 24 hours of arrival to the hospital. No abnormal hyperdensity is present to suggest an acute intracranial hemorrhage. No mass lesion is evident. No acute infarcts are evident. Ventricles and sulci are appropriate for the patient age. Paranasal sinuses and mastoid air cells within the aksax-rh-gson are clear. IMPRESSIONS: 1. No acute intracranial process. Follow-up MRI can be performed as clinically indicated.
--- NOTE | 2024-08-06 13:01 | XR ---
Site ID [facility] Patient [address] ID [id number] Order # Procedure LUMBAR SPINE 2-3V EXAMINATION TYPE: XR lumbar spine 2 or 3V DATE OF EXAM: 07/04/2024 8:24 AM CLINICAL INDICATION: Pain COMPARISON: THIS EXAM WAS READ DURING PACS DOWNTIME, NO PRIORS AVAILABLE. TECHNIQUE: XR lumbar spine 2 or 3V - Frontal, lateral and coned in L5-S1 lateral views of the spine. FINDINGS: No evidence of any acute osseous pathology. No evidence of loss of vertebral body height i s seen. There is normal alignment of the lumbar vertebral bodies. Scattered disc space narrowing. Mul tilevel marginal osteophyte formation throughout the visualized spine. There is facet joint arthropat hy throughout the spine. Scattered at least mild neural foraminal stenosis. IMPRESSION: 1. No acute fracture. 2. Mild multilevel disc degeneration.
== END 2024-07-04 10:40 | disposition left against medical advice (07) | DRG 770 ==
LOC: 3SCARD 15:00
PROVIDERS: ADMIT Hospitalist; ATTEND Hospitalist
DX: F10.129 Alcohol abuse with intoxication, unspecified (principal); F12.10 Cannabis abuse, uncomplicated; Y90.8 Blood alcohol level of 240 mg/100 ml or more; Z59.00 Homelessness unspecified; F25.9 Schizoaffective disorder, unspecified; F17.200 Nicotine dependence, unspecified, uncomplicated; Z71.41 Alcohol abuse counseling and surveillance of alcoholic; Z71.51 Drug abuse counseling and surveillance of drug abuser; Z91.51 Personal history of suicidal behavior; R00.1 Bradycardia, unspecified; Z91.81 History of falling
CPT/HCPCS: 70450; 70486; 72100; 72125; 96360; 99291

== ENCOUNTER 2024-08-03 17:59 | Emergency (ER) | payer OTHER ==
--- NOTE | 2024-08-03 18:18 | ED ---
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(s) Previous Visits for Alcohol Intoxication?: Yes Recent Trauma: Yes Associated Symptoms: denies other symptoms Treatments Prior to Arrival: none Chronic Alcohol Use: Yes <Rony Moran - Last Filed: 08/16/24 22:15> - General Chief Complaint: Alcohol Stated Complaint: Overdose, ETOH Time Seen by Provider: 08/03/24 18:01 - History of Present Illness Initial Comments: This is a 38-year-old male brought to us for evaluation regarding alcohol intoxication and well-known to this emergency department, patient himself has no complaints here in the ER (Rony Moran) - Related Data Home Medications Medication Instructions Recorded Confirmed Haloperidol Decanoate [Haldol D] 200 mg IM Q14D 06/07/24 06/14/24 Previous Rx's Medication Instructions Recorded FLUoxetine HCL [PROzac] 20 mg PO DAILY 7 Days #7 cap 06/10/24 Melatonin 5 mg PO HS PRN tab 06/10/24 Nicotine 14Mg/24Hr Patch [Habitrol] 1 patch TRANSDERM DAILY 14 Days 06/10/24 #14 patch Allergies Allergy/AdvReac Type Severity Reaction Status Date / Time flea Allergy Rash/Hives Uncoded 08/03/24 18:08 Review of Systems ROS Other: All systems not noted in ROS Statement are negative. <Moe Ellington - Last Filed: 08/04/24 14:04> ROS Other: All systems not noted in ROS Statement are negative. <Rony Moran - Last Filed: 08/16/24 22:15> ROS Statement: Those systems with pertinent positive or pertinent negative responses have been documented in the HPI. Past Medical History Past Medical History: GERD/Reflux, Hypertension, Liver Disease, Skin Disorder Additional Past Medical History / Comment(s): Hepatitis C, Pancreatitis, DDD, back pain, bilateral carpel tunnel syndrome. In the past has reported that he has heart disease that was found when he had kidney problems but he denies having a stress test or cardiac catheterization. History of Any Multi-Drug Resistant Organisms: None Reported MDRO Source:: unknown Past Surgical History: No Surgical Hx Reported, Unable to Obtain Additional Past Surgical History / Comment(s): Pt states he has had numerous "cysts" removed from where he injected IV drugs. Past Anesthesia/Blood Transfusion Reactions: No Reported Reaction, Unable to Obtain Additional Past Anesthesia/Blood Transfusion Reaction / Comment(s): In the past pt reported that he has never had surgery Past Psychological History: Anxiety, Bipolar, Depression, Schizophrenia Smoking Status: Current every day smoker Past Alcohol Use History: Abuse, Heavy Past Drug Use History: Cocaine, Heroin, Marijuana, Methamphetamine, Opiates - Past Family History Mother Family Medical History: Unable to Obtain, Rheumatoid Arthritis (RA) Additional Family Medical History / Comment(s): Mother is . Father Family Medical History: Coronary Artery Disease (CAD) <Rony Moran - Last Filed: 08/16/24 22:15> General Exam General appearance: alert, in no apparent distress, appears intoxicated Head exam: Present: atraumatic, normocephalic, normal inspection Eye exam: Present: normal appearance, PERRL, EOMI. Absent: scleral icterus, conjunctival injection, periorbital swelling ENT exam: Present: normal exam, mucous membranes moist Neck exam: Present: normal inspection. Absent: tenderness, meningismus, lymphadenopathy Respiratory exam: Present: normal lung sounds bilaterally. Absent: respiratory distress, wheezes, rales, rhonchi, stridor Cardiovascular Exam: Present: regular rate, normal rhythm, normal heart sounds. Absent: systolic murmur, diastolic murmur, rubs, gallop, clicks GI/Abdominal exam: Present: soft, normal bowel sounds. Absent: distended, te nderness, guarding, rebound, rigid Extremities exam: Present: normal inspection, full ROM, normal capillary refill. Absent: tenderness, pedal edema, joint swelling, calf tenderness Back exam: Present: normal inspection Neurological exam: Present: alert, oriented X3, CN II-XII intact Psychiatric exam: Present: normal affect, normal mood Skin exam: Present: warm, dry, intact, normal color. Absent: rash <Rony Moran - Last Filed: 08/16/24 22:15> Course <Rony Moran - Last Filed: 08/16/24 22:15> Vital Signs 08/03/24 08/04/24 08/04/24 18:00 00:28 04:26 Temperature 99.2 F 98.6 F Pulse Rate 111 H 79 68 Respiratory 16 18 18 Rate Blood Pressure 132/80 122/65 140/87 O2 Sat by Pulse 98 96 99 Oximetry 08/04/24 08/04/24 08/04/24 08:00 10:00 11:54 Temperature 98 F Pulse Rate 90 80 66 Respiratory 20 20 16 Rate Blood Pressure 140/90 135/81 140/92 O2 Sat by Pulse 98 99 100 Oximetry 08/04/24 14:17 Temperature Pulse Rate 64 Respiratory 18 Rate Blood Pressure 174/109 O2 Sat by Pulse 100 Oximetry - Reevaluation(s) Reevaluation #1: 08/03/24 18:45 Medical records reviewed (Rony Moran) Reevaluation #2: 08/03/24 18:45 Patient symptoms improved or relatively unchanged with patient has no complaints (Rony Moran) Reevaluation #3: 08/03/24 18:45 Patient informed of results and questions answered (Rony Moran) Reevaluation #4: Was pt. sent in by a medical professional or institution (, PA, JIG GRINDER SET UP OPERATOR, urgent care, hospital, or intermediate...) When possible be specific @ -no Did you speak to anyone other than the patient for history (EMS, parent, family, police, friend...)? What history was obtained from this source @ -no Did you review nursing and triage notes (agree or disagree)? Why? @ -agree Are old charts reviewed (outside hosp., previous admission, EMS record, old EKG, old radiological studies, urgent care reports/EKG's, intermediate records)? Report findings @ -yes Differential Diagnosis (chest pain, altered mental status, abdominal pain women, abdominal pain men, vaginal bleeding, weakness, fever, dyspnea, syncope, headache, dizziness, GI bleed, back pain, seizure, CVA, palpatations, mental health, musculoskeletal)? @ -prior EKG interpreted by me (3pts min.). @ -yes X-rays interpreted by me (1pt min.). @ -no CT interpreted by me (1pt min.). @ -no U/S interpreted by me (1pt. min.). @ -no What testing was considered but not performed or refused? (CT, X-rays, U/S, labs)? Why? @ -none What meds were considered but not given or refused? Why? @ -none Did you discuss the management of the patient with other professionals (professionals i.e. Dr., PA, JIG GRINDER SET UP OPERATOR, lab, RT, psych nurse, oncology social worker, photograph tinter, teacher, safety officer, test case developer)? Give summary @ -no Was smoking cessation discussed for >3mins.? @ -no Was critical care preformed (if so, how long)? @ -no Were there social determinants of health that impacted care today? How? (Homelessness, low income, unemployed, alcoholism, drug addiction, transportation, low edu. Level, literacy, decrease access to med. care, prison, rehab)? @ -none Was there de-escalation of care discussed even if they declined (Discuss DNR or withdrawal of care, Hospice)? DNR status @ -no What co-morbidities impacted this encounter? (DM, HTN, Smoking, COPD, CAD, Cancer, CVA, ARF, Chemo, Hep., AIDS, mental health diagnosis, sleep apnea, morbid obesity)? @ -none Was patient admitted / discharged? Hospital course, mention meds given and route, prescriptions, significant lab abnormalities, going to OR and other pertinent info. @ - 38 male to the ER for evaluation of severe alcohol intoxication. Patient is not want not want to be here in the ER is awake alert and can be discharged home Discharge intoxication Undiagnosed new problem with uncertain prognosis? @ -no Drug Therapy requiring intensive monitoring for toxicity (Heparin, Nitro, Insulin, Cardizem)? @ -no Were any procedures done? @ -no Diagnosis/symptom? @ - Acute, or Chronic, or Acute on Chronic? @ -Acute Uncomplicated (without systemic symptoms) or Complicated (systemic symptoms)? @ -Complicated Side effects of treatment? @ -no Exacerbation, Progression, or Severe Exacerbation? @ -exacerbation Poses a threat to life or bodily function? How? (Chest pain, [place], [place], pneumonia, PE, COPD, DKA, ARF, appy, cholecystitis, CVA, Diverticulitis, Homicidal, Suicid al, threat to staff... and all critical care pts) @ -yes severe intoxication (Rony Moran) Medical Decision Making - Lab Data Result diagrams: 08/03/24 18:56 08/03/24 18:56 <Moe Ellington - Last Filed: 08/04/24 14:04> - Lab Data Result diagrams: 08/03/24 18:56 08/03/24 18:56 - EKG Data -: EKG Interpreted by Me (EKG is sinus 89 MT 131 QRS 94 QTc 382) <Rony Moran - Last Filed: 08/16/24 22:15> - Medical Decision Making 38 male to the ER for evaluation of severe alcohol intoxication. Patient is not want not want to be here in the ER is awake alert and can be discharged home (Rony Moran) - Lab Data Lab Results 08/03/24 08/03/24 08/03/24 Range/Units 18:56 18:56 19:25 WBC 5.4 (3.8-10.6) k/uL RBC 4.50 (4.30-5.90) m/uL Hgb 12.6 L (13.0-17.5) gm/dL Hct 38.5 L (39.0-53.0) % MCV 85.6 (80.0-100.0) fL MCH 28.0 (25.0-35.0) pg MCHC 32.7 (31.0-37.0) g/dL RDW 14.0 (11.5-15.5) % Plt Count 195 D (150-450) k/uL MPV 8.9 Neutrophils % 59 % Lymphocytes % 31 % Monocytes % 5 % Eosinophils % 2 % Basophils % 1 % Neutrophils # 3.2 (1.3-7.7) k/uL Lymphocytes # 1.7 (1.0-4.8) k/uL Monocytes # 0.3 (0-1.0) k/uL Eosinophils # 0.1 (0-0.7) k/uL Basophils # 0.0 (0-0.2) k/uL Manual Slide Review Performed RBC Morphology Normal PT 11.9 (10.0-12.5) sec INR 1.1 (<1.2) Sodium 147 H (137-145) mmol/L Potassium 3.8 (3.5-5.1) mmol/L Chloride 115 H (98-107) mmol/L Carbon Dioxide 19 L (22-30) mmol/L Anion Gap 13 mmol/L BUN 16 (9-20) mg/dL Creatinine 1.19 (0.66-1.25) mg/dL Est GFR (CKD-EPI)AfAm 90 (>60 ml/min/1.73 sqM) Est GFR (CKD-EPI)NonAf 78 (>60 ml/min/1.73 sqM) Glucose 90 (74-99) mg/dL Lactic Ac Sepsis Rflx Plasma Lactic Acid S[place] (0.7-2.0) mmol/L Calcium 9.3 (8.4-10.2) mg/dL Total Bilirubin 0.4 (0.2-1.3) mg/dL AST 45 (17-59) U/L ALT 23 (4-49) U/L Alkaline Phosphatase 42 (38-126) U/L Total Protein 7.3 (6.3-8.2) g/dL Albumin 4.3 (3.5-5.0) g/dL Lipase 62 (23-300) U/L Urine Color Urine Appearance (Clear) Urine pH (5.0-8.0) Ur Specific [place] (1.001-1.035) Urine Protein (Negative) Urine Glucose (UA) (Negative) Urine Ketones (Negative) Urine Blood (Negative) Urine Nitrite (Negative) Urine Bilirubin (Negative) Urine Urobilinogen (<2.0) mg/dL Ur Leukocyte Esterase (Negative) Salicylates <1.0 mg/dL Urine Opiates Screen (NotDetected) Ur Oxycodone Screen (NotDetected) Urine Methadone Screen (NotDetected) Acetaminophen <10.0 ug/mL Ur Barbiturates Screen (NotDetected) U Tricyclic Antidepress (NotDetected) Ur Phencyclidine Scrn (NotDetected) Ur Amphetamines Screen (NotDetected) U Methamphetamines Scrn (NotDetected) U Benzodiazepines Scrn (NotDetected) Urine Cocaine Screen (NotDetected) U Marijuana (THC) Screen (NotDetected) Serum Alcohol 179 mg/dL 08/03/24 08/03/24 08/03/24 Range/Units 19:25 20:02 22:49 WBC (3.8-10.6) k/uL RBC (4.30-5.90) m/uL Hgb (13.0-17.5) gm/dL Hct (39.0-53.0) % MCV (80.0-100.0) fL MCH (25.0-35.0) pg MCHC (31.0-37.0) g/dL RDW (11.5-15.5) % Plt Count (150-450) k/uL MPV Neutrophils % % Lymphocytes % % Monocytes % % Eosinophils % % Basophils % % Neutrophils # (1.3-7.7) k/uL Lymphocytes # (1.0-4.8) k/uL Monocytes # (0-1.0) k/uL Eosinophils # (0-0.7) k/uL Basophils # (0-0.2) k/uL Manual Slide Review RBC Morphology PT (10.0-12.5) sec INR (<1.2) Sodium (137-145) mmol/L Potassium (3.5-5.1) mmol/L Chloride (98-107) mmol/L Carbon Dioxide (22-30) mmol/L Anion Gap mmol/L BUN (9-20) mg/dL Creatinine (0.66-1.25) mg/dL Est GFR (CKD-EPI)AfAm (>60 ml/min/1.73 sqM) Est GFR (CKD-EPI)NonAf (>60 ml/min/1.73 sqM) Glucose (74-99) mg/dL Lactic Ac Sepsis Rflx Y Plasma Lactic Acid [place] 2.5 H* 2.1 H* (0.7-2.0) mmol/L Calcium (8.4-10.2) mg/dL Total Bilirubin (0.2-1.3) mg/dL AST (17-59) U/L ALT (4-49) U/L Alkaline Phosphatase (38-126) U/L Total Protein (6.3-8.2) g/dL Albumin (3.5-5.0) g/dL Lipase (23-300) U/L Urine Color Urine Appearance (Clear) Urine pH (5.0-8.0) Ur Specific [place] (1.001-1.035) Urine Protein (Negative) Urine Glucose (UA) (Negative) Urine Ketones (Negative) Urine Blood (Negative) Urine Nitrite (Negative) Urine Bilirubin (Negative) Urine Urobilinogen (<2.0) mg/dL Ur Leukocyte Esterase (Negative) Salicylates mg/dL Urine Opiates Screen (NotDetected) Ur Oxycodone Screen (NotDetected) Urine Methadone Screen (NotDetected) Acetaminophen ug/mL Ur Barbiturates Screen (NotDetected) U Tricyclic Antidepress (NotDetected) Ur Phencyclidine Scrn (NotDetected) Ur Amphetamines Screen (NotDetected) U Methamphetamines Scrn (NotDetected) U Benzodiazepines Scrn (NotDetected) Urine Cocaine Screen (NotDetected) U Marijuana (THC) Screen (NotDetected) Serum Alcohol mg/dL 08/03/24 08/04/24 08/04/24 Range/Units 23:21 04:29 04:29 WBC (3.8-10.6) k/uL RBC (4.30-5.90) m/uL Hgb (13.0-17.5) gm/dL Hct (39.0-53.0) % MCV (80.0-100.0) fL MCH (25.0-35.0) pg MCHC (31.0-37.0) g/dL RDW (11.5-15.5) % Plt Count (150-450) k/uL MPV Neutrophils % % Lymphocytes % % Monocytes % % Eosinophils % % Basophils % % Neutrophils # (1.3-7.7) k/uL Lymphocytes # (1.0-4.8) k/uL Monocytes # (0-1.0) k/uL Eosinophils # (0-0.7) k/uL Basophils # (0-0.2) k/uL Manual Slide Review RBC Morphology PT (10.0-12.5) sec INR (<1.2) Sodium (137-145) mmol/L Potassium (3.5-5.1) mmol/L Chloride (98-107) mmol/L Carbon Dioxide (22-30) mmol/L Anion Gap mmol/L BUN (9-20) mg/dL Creatinine (0.66-1.25) mg/dL Est GFR (CKD-EPI)AfAm (>60 ml/min/1.73 sqM) Est GFR (CKD-EPI)NonAf (>60 ml/min/1.73 sqM) Glucose (74-99) mg/dL Lactic Ac Sepsis Rflx Y Plasma Lactic Acid [place] (0.7-2.0) mmol/L Calcium (8.4-10.2) mg/dL Total Bilirubin (0.2-1.3) mg/dL AST (17-59) U/L ALT (4-49) U/L Alkaline Phosphatase (38-126) U/L Total Protein (6.3-8.2) g/dL Albumin (3.5-5.0) g/dL Lipase (23-300) U/L Urine Color Colorless Urine Appearance Clear (Clear) Urine pH 6.0 (5.0-8.0) Ur Specific [place] 1.023 (1.001-1.035) Urine Protein Negative (Negative) Urine Glucose (UA) Negative (Negative) Urine Ketones Negative (Negative) Urine Blood Negative (Negative) Urine Nitrite Negative (Negative) Urine Bilirubin Negative (Negative) Urine Urobilinogen <2.0 (<2.0) mg/dL Ur Leukocyte Esterase Negative (Negative) Salicylates mg/dL Urine Opiates Screen Not Detected (NotDetected) Ur Oxycodone Screen Not Detected (NotDetected) Urine Methadone Screen Not Detected (NotDetected) Acetaminophen ug/mL Ur Barbiturates Screen Not Detected (NotDetected) U Tricyclic Antidepress Not Detected (NotDetected) Ur Phencyclidine Scrn Not Detected (NotDetected) Ur Amphetamines Screen Detected H (NotDetected) U Methamphetamines Scrn Not Detected (NotDetected) U Benzodiazepines Scrn Detected H (NotDetected) Urine Cocaine Screen Not Detected (NotDetected) U Marijuana (THC) Screen Detected H (NotDetected) Serum Alcohol mg/dL 08/04/24 Range/Units 04:29 WBC (3.8-10.6) k/uL RBC (4.30-5.90) m/uL Hgb (13.0-17.5) gm/dL Hct (39.0-53.0) % MCV (80.0-100.0) fL MCH (25.0-35.0) pg MCHC (31.0-37.0) g/dL RDW (11.5-15.5) % Plt Count (150-450) k/uL MPV Neutrophils % % Lymphocytes % % Monocytes % % Eosinophils % % Basophils % % Neutrophils # (1.3-7.7) k/uL Lymphocytes # (1.0-4.8) k/uL Monocytes # (0-1.0) k/uL Eosinophils # (0-0.7) k/uL Basophils # (0-0.2) k/uL Manual Slide Review RBC Morphology PT (10.0-12.5) sec INR (<1.2) Sodium (137-145) mmol/L Potassium (3.5-5.1) mmol/L Chloride (98-107) mmol/L Carbon Dioxide (22-30) mmol/L Anion Gap mmol/L BUN (9-20) mg/dL Creatinine (0.66-1.25) mg/dL Est GFR (CKD-EPI)AfAm (>60 ml/min/1.73 sqM) Est GFR (CKD-EPI)NonAf (>60 ml/min/1.73 sqM) Glucose (74-99) mg/dL Lactic Ac Sepsis Rflx Plasma Lactic Acid [place] <0.5 L (0.7-2.0) mmol/L Calcium (8.4-10.2) mg/dL Total Bilirubin (0.2-1.3) mg/dL AST (17-59) U/L ALT (4-49) U/L Alkaline Phosphatase (38-126) U/L Total Protein (6.3-8.2) g/dL Albumin (3.5-5.0) g/dL Lipase (23-300) U/L Urine Color Urine Appearance (Clear) Urine pH (5.0-8.0) Ur Specific [place] (1.001-1.035) Urine Protein (Negative) Urine Glucose (UA) (Negative) Urine Ketones (Negative) Urine Blood (Negative) Urine Nitrite (Negative) Urine Bilirubin (Negative) Urine Urobilinogen (<2.0) mg/dL Ur Leukocyte Esterase (Negative) Salicylates mg/dL Urine Opiates Screen (NotDetected) Ur Oxycodone Screen (NotDetected) Urine Methadone Screen (NotDetected) Acetaminophen ug/mL Ur Barbiturates Screen (NotDetected) U Tricyclic Antidepress (NotDetected) Ur Phencyclidine Scrn (NotDetected) Ur Amphetamines Screen (NotDetected) U Methamphetamines Scrn (NotDetected) U Benzodiazepines Scrn (NotDetected) Urine Cocaine Screen (NotDetected) U Marijuana (THC) Screen (NotDetected) Serum Alcohol mg/dL Disposition <Moe Ellington - Last Filed: 08/04/24 14:04> Is patient prescribed a controlled substance at d/c from ED?: No Time of Disposition: 19:00 <Rony Moran - Last Filed: 08/16/24 22:15> Clinical Impression: Acute psychosis, Alcohol abuse Disposition: HOME SELF-CARE Condition: Fair Instructions (If sedation given, give patient instructions): Alcohol Intoxicati on (ED) Referrals: None,Stated [Primary Care Provider] - 1-2 days
[2024-08-03] MEDS ORDERED: LORazepam 0.5 MG TAB PO PRN (18:48)
[2024-08-03] MEDS ORDERED: LORazepam 1 MG TAB PO PRN (18:48)
[2024-08-03] MEDS ORDERED: LORazepam 2 MG/ML INJ IV PRN ×2 (18:48)
[2024-08-03 19:05] LABS: Basophils % (A) 1 %; Eosinophils # (A) 0.1 k/uL (0-0.7); Eosinophils % (A) 2 %; HCT 38.5 % (39.0-53.0); HGB 12.6 gm/dL (13.0-17.5); Lymphocytes # (A) 1.7 k/uL (1.0-4.8); Lymphocytes % (A) 31 %; MCHC 32.7 g/dL (31.0-37.0); MCV 85.6 fL (80.0-100.0); Mean Platelet Volume 8.9; Monocytes # (A) 0.3 k/uL (0-1.0); Monocytes % (A) 5 %; Neutrophils # (A) 3.2 k/uL (1.3-7.7); Neutrophils % (A) 59 %; WBC 5.4 k/uL (3.8-10.6)
[2024-08-03] MEDS: SODIUM CHLORIDE 0.9% 1,000 ML IV STA ×2 (19:18→19:20)
[2024-08-03] MEDS: SODIUM CHLORIDE 0.9% 500 ML 500 ML IV STA (19:19)
[2024-08-03 19:23] LABS: ALT 23 U/L (4-49); AST 45 U/L (17-59); Acetaminophen <10.0 ug/mL; African American GFR (CKD) 90 (>60 ml/min/1.73 sqM); Albumin 4.3 g/dL (3.5-5.0); Alkaline Phosphatase 42 U/L (38-126); Anion Gap 13 mmol/L; Blood Urea Nitrogen 16 mg/dL (9-20); Calcium 9.3 mg/dL (8.4-10.2); Carbon Dioxide 19 mmol/L (22-30); Chloride 115 mmol/L (98-107); Glucose 90 mg/dL (74-99); Lipase 62 U/L (23-300); Non-African American GFR(CKD) 78 (>60 ml/min/1.73 sqM); Potassium 3.8 mmol/L (3.5-5.1); Salicylate <1.0 mg/dL; Sodium 147 mmol/L (137-145); Total Bilirubin 0.4 mg/dL (0.2-1.3); Total Protein 7.3 g/dL (6.3-8.2)
[2024-08-03 19:26] LABS: Alcohol 179 mg/dL
[2024-08-03 19:30] LABS: Platelet Count 195 k/uL (150-450); RBC Morphology Normal
[2024-08-03 20:02] LABS: INR 1.1 (<1.2); Prothrombin Time 11.9 sec (10.0-12.5)
[2024-08-04] MEDS: LORazepam 1 MG TAB PO PRN ×2 (00:49→13:57)
[2024-08-04] MEDS: LORazepam 2 MG/ML INJ IV PRN (02:45)
[2024-08-04 05:01] LABS: Appearance,Urine Clear (Clear); Bilirubin,Urine Negative (Negative); Blood,Urine Negative (Negative); Color,Urine Colorless; Glucose,Urine (UA) Negative (Negative); Ketones,Urine Negative (Negative); Leukocyte Esterase,Urine Negative (Negative); Nitrite,Urine Negative (Negative); Protein,Urine Negative (Negative); Specific Gravity,Urine 1.023 (1.001-1.035); Urobilinogen,Urine <2.0 mg/dL (<2.0)
[2024-08-04 05:25] LABS: Amphetamine Screen,Urine Detected (NotDetected); Barbiturate Screen,Urine Not Detected (NotDetected); Benzodiazepines Screen,Urine Detected (NotDetected); Cocaine Screen,Urine Not Detected (NotDetected); Methadone Screen, Urine Not Detected (NotDetected); Opiate Screen,Urine Not Detected (NotDetected); Oxycodone Screen, Urine Not Detected (NotDetected); Phencyclidine Screen,Urine Not Detected (NotDetected); Tricyclic Antidepressant,Urine Not Detected (NotDetected); Urn Cannabinoid Scrn Detected (NotDetected)
[2024-08-04] MEDS: MULTIVITAMINS, THERA 1 EACH TAB PO SCH (08:24)
[2024-08-04] MEDS: FOLIC ACID 1 MG TAB PO SCH (08:24)
[2024-08-04 08:26] VITALS: TEMP 98
[2024-08-04] MEDS: NICOTINE 14MG/24HR PATCH TRANSDERM STA (11:53)
[2024-08-04 14:18] VITALS: BP 174/109; PULSE 64; RESP 18
== END 2024-08-04 14:18 | disposition home or self-care (01) ==
LOC: EC 17:59
DX: F10.929 Alcohol use, unspecified with intoxication, unspecified
CPT/HCPCS: 36415; 80053; 80143; 80179; 80306; 80320; 81003; 83605; 83690; 85025; 85610; 93005; 99284

== ENCOUNTER 2024-12-03 10:48 | Emergency (ER) | payer OTHER, MEDICARE ==
--- NOTE | 2024-12-03 11:02 | ED ---
General Adult HPI - General Stated complaint: infection Time Seen by Provider: 12/03/24 10:54 Source: patient, RN notes reviewed Mode of arrival: ambulatory Limitations: no limitations - History of Present Illness Initial comments: 39-year-old male presents emergency department complaint infection of the scalp, face. Patient states that he did use methamphetamines. Patient states that he noticed some sores he states the pus is been draining out of it his friends been trying squeezing breeze notices periorbital region has become very swollen, painful. Patient denies any reports of fever chills no neck pain no headache denies other associated symptoms. - Related Data Home Medications Medication Instructions Recorded Confirmed Haloperidol Decanoate [Haldol D] 200 mg IM Q14D 06/07/24 06/14/24 Previous Rx's Medication Instructions Recorded FLUoxetine HCL [PROzac] 20 mg PO DAILY 7 Days #7 cap 06/10/24 Melatonin 5 mg PO HS PRN tab 06/10/24 Nicotine 14Mg/24Hr Patch [Habitrol] 1 patch TRANSDERM DAILY 14 Days 06/10/24 #14 patch Cephalexin [Keflex] 500 mg PO Q6HR #40 cap 12/03/24 Sulfamethox-Tmp 800-160Mg [Bactrim 1 each PO Q12HR #20 tab 12/03/24 Ds] Allergies Allergy/AdvReac Type Severity Reaction Status Date / Time flea Allergy Rash/Hives Uncoded 12/03/24 11:02 Review of Systems ROS Statement: Those systems with pertinent positive or pertinent negative responses have been documented in the HPI. ROS Other: All systems not noted in ROS Statement are negative. Past Medical History Past Medical History: GERD/Reflux, Hypertension, Liver Disease, Skin Disorder Additional Past Medical History / Comment(s): Hepatitis C, Pancreatitis, DDD, back pain, bilateral carpel tunnel syndrome. In the past has reported that he has heart disease that was found when he had kidney problems but he denies having a stress test or cardiac catheterization. History of Any Multi-Drug Resistant Organisms: None Reported MDRO Source:: unknown Past Surgical History: No Surgical Hx Reported, Unable to Obtain Additional Past Surgical History / Comment(s): Pt states he has had numerous "cysts" removed from where he injected IV drugs. Past Anesthesia/Blood Transfusion Reactions: No Reported Reaction, Unable to Obtain Additional Past Anesthesia/Blood Transfusion Reaction / Comment(s): In the past pt reported that he has never had surgery Past Psychological History: Anxiety, Bipolar, Depression, Schizophrenia Smoking Status: Current every day smoker Past Alcohol Use History: Abuse, Heavy Past Drug Use History: Cocaine, Heroin, Marijuana, Methamphetamine, Opiates - Past Family History Mother Family Medical History: Unable to Obtain, Rheumatoid Arthritis (RA) Additional Family Medical History / Comment(s): Mother is . Father Family Medical History: Coronary Artery Disease (CAD) General Exam Limitations: no limitations General appearance: alert, in no apparent distress Head exam: Present: atraumatic, normocephalic. Absent: normal inspection (Multiple sores, draining wounds on the right side of the scalp.) Eye exam: Present: PERRL, EOMI, periorbital swelling, periorbital tenderness. Absent: normal appearance, scleral icterus, conjunctival injection ENT exam: Present: normal exam, mucous membranes moist Neck exam: Present: normal inspection, full ROM. Absent: tenderness, meningismus, lymphadenopathy Respiratory exam: Present: normal lung sounds bilaterally. Absent: respiratory distress, wheezes, rales, rhonchi, stridor Cardiovascular Exam: Present: regular rate, normal rhythm, normal heart sounds. Absent: systolic murmur, diastolic murmur, rubs, gallop, clicks GI/Abdominal exam: Present: soft, normal bowel sounds. Absent: distended, tenderness, guarding, rebound, rigid Course Vital Signs 12/03/24 12/03/24 11:02 11:30 Temperature 97.8 F Pulse Rate 98 86 Respiratory 20 20 Rate Blood Pressure 176/89 130/86 O2 Sat by Pulse 99 Oximetry Medical Decision Making - Medical Decision Making Was pt. sent in by a medical professional or institution (, PA, REFRACTORY SPECIALIST, urgent care, hospital, or snf...) When possible be specific @ -No Did you speak to anyone other than the patient for history (EMS, parent, family, police, friend...)? What history was obtained from this source @ -No Did you review nursing and triage notes (agree or disagree)? Why? @ -I reviewed and agree with nursing and triage notes Were old charts reviewed (outside hosp., previous admission, EMS record, old EKG, old radiological studies, urgent care reports/EKG's, snf records)? Report findings @ -No old charts were reviewed Differential Diagnosis (chest pain, altered mental status, abdominal pain women, abdominal pain men, vaginal bleeding, weakness, fever, dyspnea, syncope, headache, dizziness, GI bleed, back pain, seizure, CVA, palpatations, mental health, musculoskeletal)? @ -Cellulitis, methamphetamine abuse, sores, abscess EKG interpreted by me (3pts min.). @ -None X-rays interpreted by me (1pt min.). @ -None done CT interpreted by me (1pt min.). @ -None done U/S interpreted by me (1pt. min.). @ -None done What testing was considered but not performed or refused? (CT, X-rays, U/S, labs)? Why? @ -[Recommended CT patient declined What meds were considered but not given or refused? Why? @ -None Did you discuss the management of the patient with other professionals (professionals i.e. , PA, REFRACTORY SPECIALIST, lab, RT, psych nurse, social worker health services, machine stemmer, teacher, chief green officer, casework specialist)? Give summary @ -No Was smoking cessation discussed for >3mins.? @ -No Was critical care preformed (if so, how long)? @ -No Were there social determinants of health that impacted care today? How? (Homelessness, low income, unemployed, alcoholism, drug addiction, transportation, low edu. Level, literacy, decrease access to med. care, nursing home, rehab)? @ -No Was there de-escalation of care discussed even if they declined (Discuss DNR or withdrawal of care, Hospice)? DNR status @ -No What co-morbidities impacted this encounter? (DM, HTN, Smoking, COPD, CAD, Cancer, CVA, ARF, Chemo, Hep., AIDS, mental health diagnosis, sleep apnea, morbid obesity)? @ -Drug abuse Was patient admitted / discharged? Hospital course, mention meds given and route, prescriptions, significant lab abnormalities, going to OR and other pertinent info. @ -Disc patient presented for multiple sores on her face with surrounding erythema patient did have some right periorbital swelling more likely reactive f rom prior infections above patient offered imaging patient declined. Patient requesting antibiotics will be discharged tetanus up-to-date. Undiagnosed new problem with uncertain prognosis? @ -No Drug Therapy requiring intensive monitoring for toxicity (Heparin, Nitro, Insulin, Cardizem)? @ -No Were any procedures done? @ -No Diagnosis/symptom? @ -Facial sores, cellulitis, methamphetamine abuse Acute, or Chronic, or Acute on Chronic? @ -Acute Uncomplicated (without systemic symptoms) or Complicated (systemic symptoms)? @ -Uncomplicated Side effects of treatment? @ -No Exacerbation, Progression, or Severe Exacerbation? @ -No Poses a threat to life or bodily function? How? (Chest pain, [place], [place], pneumonia, PE, COPD, DKA, ARF, appy, cholecystitis, CVA, Diverticulitis, Homicidal, Suicidal, threat to staff... and all critical care pts) @ -No Disposition Clinical Impression: Cellulitis, Skin avulsion, Methamphetamine abuse Disposition: HOME SELF-CARE Condition: Stable Instructions (If sedation given, give patient instructions): Cellulitis (ED) Additional Instructions: Please return to the Emergency Department if symptoms worsen or any other concerns. Prescriptions: Sulfamethox-Tmp 800-160Mg [Bactrim Ds] 1 each PO Q12HR #20 tab Cephalexin [Keflex] 500 mg PO Q6HR #40 cap Is patient prescribed a controlled substance at d/c from ED?: No Referrals: None,Stated [Primary Care Provider] - 1-2 days Time of Disposition: 11:21
[2024-12-03 11:06] VITALS: RESP 20; TEMP 97.8
[2024-12-03] MEDS: ceFAZolin 1,000 MG VIAL (IM USE) IM STA (11:24)
[2024-12-03 11:31] VITALS: BP 130/86; PULSE 86
== END 2024-12-03 11:31 | disposition home or self-care (01) ==
LOC: EC 10:48
DX: L03.811 Cellulitis of head [any part, except face] (principal); F15.10 Other stimulant abuse, uncomplicated; F17.200 Nicotine dependence, unspecified, uncomplicated; Z91.038 Other insect allergy status
CPT/HCPCS: 99282; 96372; J0690

== ENCOUNTER 2025-01-14 08:41 | Emergency (ER) | payer MEDICARE, OTHER ==
[2025-01-14 08:54] VITALS: TEMP 98.7
--- NOTE | 2025-01-14 09:03 | ED ---
Skin/Abscess/FB HPI - General Chief complaint: Skin/Abscess/Foreign Body Stated complaint: infection Time Seen by Provider: 01/14/25 08:42 Source: patient, RN notes reviewed Mode of arrival: ambulatory Limitations: no limitations - History of Present Illness Initial comments: 39-year-old male presents emergency department chief complaint of nose swelling and redness. Patient states he does not take them. He states he tried to pop pimple. Patient does admit that he still using methamphetamines. No fevers or chills no ocular pain. - Related Data Home Medications Medication Instructions Recorded Confirmed Haloperidol Decanoate [Haldol D] 200 mg IM Q14D 06/07/24 06/14/24 Previous Rx's Medication Instructions Recorded FLUoxetine HCL [PROzac] 20 mg PO DAILY 7 Days #7 cap 06/10/24 Melatonin 5 mg PO HS PRN tab 06/10/24 Nicotine 14Mg/24Hr Patch [Habitrol] 1 patch TRANSDERM DAILY 14 Days 06/10/24 #14 patch Cephalexin [Keflex] 500 mg PO Q6HR #40 cap 12/03/24 Sulfamethox-Tmp 800-160Mg [Bactrim 1 each PO Q12HR #20 tab 12/03/24 Ds] Mupirocin 2% Oint [Bactroban 2% 1 applic NASAL TID #22 gm 01/14/25 Oint] clindamycin HCL 300 mg PO QID #40 cap 01/14/25 Allergies Allergy/AdvReac Type Severity Reaction Status Date / Time flea Allergy Rash/Hives Uncoded 01/14/25 08:53 Review of Systems ROS Statement: Those systems with pertinent positive or pertinent negative responses have been documented in the HPI. ROS Other: All systems not noted in ROS Statement are negative. Past Medical History Past Medical History: GERD/Reflux, Hypertension, Liver Disease, Skin Disorder Additional Past Medical History / Comment(s): Hepatitis C, Pancreatitis, DDD, back pain, bilateral carpel tunnel syndrome. In the past has reported that he has heart disease that was found when he had kidney problems but he denies having a stress test or cardiac catheterization. History of Any Multi-Drug Resistant Organisms: None Reported MDRO Source:: unknown Past Surgical History: No Surgical Hx Reported, Unable to Obtain Additional Past Surgical History / Comment(s): Pt states he has had numerous "cysts" removed from where he injected IV drugs. Past Anesthesia/Blood Transfusion Reactions: No Reported Reaction, Unable to Obtain Additional Past Anesthesia/Blood Transfusion Reaction / Comment(s): In the past pt reported that he has never had surgery Past Psychological History: Anxiety, Bipolar, Depression, Schizophrenia Smoking Status: Current every day smoker Past Alcohol Use History: Abuse, Heavy Past Drug Use History: Cocaine, Heroin, Marijuana, Methamphetamine, Opiates - Past Family History Mother Family Medical History: Unable to Obtain, Rheumatoid Arthritis (RA) Additional Family Medical History / Comment(s): Mother is . Father Family Medical History: Coronary Artery Disease (CAD) General Exam Limitations: no limitations General appearance: alert, in no apparent distress Head exam: Present: atraumatic, normocephalic, normal inspection Eye exam: Present: normal appearance, PERRL, EOMI. Absent: scleral icterus, conjunctival injection, periorbital swelling ENT exam: Present: normal oropharynx, mucous membranes moist, TM's normal bilaterally, normal external ear exam, other (Erythema, swelling of the nasal no intranasal abscess). Absent: normal exam Neck exam: Present: normal inspection, full ROM. Absent: tenderness, meningismus, lymphadenopathy Respiratory exam: Present: normal lung sounds bilaterally. Absent: respiratory distress, wheezes, rales, rhonchi, stridor Cardiovascular Exam: Present: regular rate, normal rhythm, normal heart sounds. Absent: systolic murmur, diastolic murmur, rubs, gallop, clicks Course Vital Signs 01/14/25 01/14/25 08:51 09:13 Temperature 98.7 F Pulse Rate 106 H 94 Respiratory 20 16 Rate Blood Pressure 146/98 164/94 O2 Sat by Pulse 99 99 Oximetry Medical Decision Making - Medical Decision Making Was pt. sent in by a medical professional or institution (, PA, ASSORTMENT PLANNER, urgent care, hospital, or long term...) When possible be specific @ -No Did you speak to anyone other than the patient for history (EMS, parent, family, police, friend...)? What history was obtained from this source @ -No Did you review nursing and triage notes (agree or disagree)? Why? @ -I reviewed and agree with nursing and triage notes Were old charts reviewed (outside hosp., previous admission, EMS record, old EKG, old radiological studies, urgent care reports/EKG's, long term records)? Report findings @ -No old charts were reviewed Differential Diagnosis (chest pain, altered mental status, abdominal pain women, abdominal pain men, vaginal bleeding, weakness, fever, dyspnea, syncope, headache, dizziness, GI bleed, back pain, seizure, CVA, palpatations, mental health, musculoskeletal)? @ -Cellulitis, abscess, drug abuse EKG interpreted by me (3pts min.). @ -None X-rays interpreted by me (1pt min.). @ -None done CT interpreted by me (1pt min.). @ -None done U/S interpreted by me (1pt. min.). @ -None done What testing was considered but not performed or refused? (CT, X-rays, U/S, labs)? Why? @ -None What meds were considered but not given or refused? Why? @ -None Did you discuss the management of the patient with other professionals (pedro pablo becker i.e. , PA, ASSORTMENT PLANNER, lab, RT, psych nurse, social service liaison, apple sorter, teacher, chief procurement officer, rn case management)? Give summary @ -No Was smoking cessation discussed for >3mins.? @ -No Was critical care preformed (if so, how long)? @ -No Were there social determinants of health that impacted care today? How? (Homelessness, low income, unemployed, alcoholism, drug addiction, transportation, low edu. Level, literacy, decrease access to med. care, halfway, rehab)? @ -No Was there de-escalation of care discussed even if they declined (Discuss DNR or withdrawal of care, Hospice)? DNR status @ -No What co-morbidities impacted this encounter? (DM, HTN, Smoking, COPD, CAD, Cancer, CVA, ARF, Chemo, Hep., AIDS, mental health diagnosis, sleep apnea, morbid obesity)? @ -Methamphetamine use Was patient admitted / discharged? Hospital course, mention meds given and route, prescriptions, significant lab abnormalities, going to OR and other pertinent info. @ -Discharge patient has cellulitis from picking. Patient was started on clindamycin and intranasal Bactroban. Return parameters discussed. Undiagnosed new problem with uncertain prognosis? @ -No Drug Therapy requiring intensive monitoring for toxicity (Heparin, Nitro, Insulin, Cardizem)? @ -No Were any procedures done? @ -No Diagnosis/symptom? @ -[Nasal cellulitis Acute, or Chronic, or Acute on Chronic? @ -Acute Uncomplicated (without systemic symptoms) or Complicated (systemic symptoms)? @ -Uncomplicated Side effects of treatment? @ -No Exacerbation, Progression, or Severe Exacerbation? @ -No Poses a threat to life or bodily function? How? (Chest pain, [place], [place], pneumonia, PE, COPD, DKA, ARF, appy, cholecystitis, CVA, Diverticulitis, Homicidal, Suicidal, threat to staff... and all critical care pts) @ -No Disposition Clinical Impression: Nose cellulitis Disposition: HOME SELF-CARE Condition: Stable Instructions (If sedation given, give patient instructions): Cellulitis (ED) Additional Instructions: Please return to the Emergency Department if symptoms worsen or any other concerns. Prescriptions: clindamycin HCL 300 mg PO QID #40 cap Is patient prescribed a controlled substance at d/c from ED?: No Referrals: None,Stated [Primary Care Provider] - 1-2 days Time of Disposition: 09:02
[2025-01-14 09:18] VITALS: BP 164/94; PULSE 94; RESP 16
== END 2025-01-14 09:20 | disposition home or self-care (01) ==
LOC: EC 08:41
DX: J34.0 Abscess, furuncle and carbuncle of nose (principal); F19.90 Other psychoactive substance use, unspecified, uncomplicated; F17.200 Nicotine dependence, unspecified, uncomplicated; Z91.038 Other insect allergy status
CPT/HCPCS: 99282

== ENCOUNTER → 2025-02-26 | Outpatient (CLI) | payer MEDICARE, OTHER ==
[2025-02-26 15:01] LABS: Basophils # (A) 0.07 X 10*3/uL (0.00-0.10); Basophils % (A) 1.2 %; Eosinophils # (A) 0.04 X 10*3/uL (0.04-0.35); Eosinophils % (A) 0.7 %; HCT 43.3 % (39.6-50.0); HGB 13.7 g/dL (13.0-17.0); Lymphocytes # (A) 1.28 X 10*3/uL (0.90-5.00); Lymphocytes % (A) 21.5 %; MCH 25.9 pg (27.0-32.0); MCHC 31.6 g/dL (32.0-37.0); MCV 81.9 FL (80.0-97.0); Mean Platelet Volume 11.6 FL (9.5-12.2); Monocytes # (A) 0.26 X 10*3/uL (0.20-1.00); Monocytes % (A) 4.4 %; NRBC Per 100 WBC 0 X 10*3/uL (0.00-0.01); Neutrophils # (A) 4.25 X 10*3/uL (1.80-7.70); Neutrophils % (A) 71.4 %; Platelet Count 236 X 10*3/uL (140-440); RBC 5.29 X 10*6/uL (4.40-5.60); RDW 14.1 % (11.5-14.5); WBC 5.95 X 10*3/uL (4.50-10.00)
[2025-02-26 15:20] LABS: ALT 25 U/L (10-49); AST 31 U/L (14-35); Albumin/Globulin Ratio 1.25 Ratio (1.60-3.17); Alkaline Phosphatase 68 U/L (41-126); BUN/Creat Ratio 17.88 Ratio (12.00-20.00); Blood Urea Nitrogen 14.3 mg/dL (9.0-27.0); Calcium 9.5 mg/dL (8.7-10.3); Chloride 104 mmol/L (96-109); GGT 17 U/L (0-73); Globulin 3.2 g/dL (1.6-3.3); Glucose 92 mg/dL (70-110); Potassium 4.4 mmol/L (3.5-5.5); Sodium 136 mmol/L (135-145); Total Bilirubin 0.3 mg/dL (0.3-1.2); Total Protein 7.2 g/dL (6.2-8.2)
[2025-02-26 15:38] LABS: Hepatitis B Surface Antigen Nonreactive (Nonreactive)
[2025-02-26 19:08] LABS: Alpha Fetoprotein, Tumor Mkr <3.00 ng/mL (0.00-7.90)
--- NOTE | 2025-02-27 16:22 | US ---
EXAMINATION TYPE: US liver DATE OF EXAM: 02/26/2025 COMPARISON: NONE CLINICAL INDICATION: Male, 39 years old with history of B182 CHRONIC VIRAL HEP C; Hep C TECHNIQUE: Grayscale and color Doppler imaging of the right upper quadrant was performed. FINDINGS: EXAM MEASUREMENTS: Liver Length: 18.8 cm. Normal less than 15.5 cm. Gallbladder Wall: .2 cm CBD: .4 cm Right Kidney: 11.1 x 4.5 x 5.4 cm SUPPLY CHAIN DESIGN MANAGER NOTES: Pancreas: 2 mm duct visualized tail obscured by bowel gas. Liver: Increased attenuation suggesting mild fatty infiltration Gallbladder: No stones seen Evidence for sonographic Avendano's sign: No CBD: wnl Right Kidney: wnl IMPRESSION: 1. Hepatomegaly. Some mild fatty infiltration of the liver may be present. [facility], , 02/27/2025 4:20 PM
== END | disposition home or self-care (01) ==
LOC: RADUSWWP 10:29
PROVIDERS: ATTEND Internal Medicine Gastroenterology
DX: R16.0 Hepatomegaly, not elsewhere classified (principal); B18.2 Chronic viral hepatitis C
CPT/HCPCS: 76705; 80053; 81596; 82105; 82784; 82977; 85025; 86704; 87340; 87522

== ENCOUNTER 2025-06-19 15:59 | Emergency (ER) | payer MEDICARE ==
[2025-06-19 16:17] VITALS: RESP 18
--- NOTE | 2025-06-19 17:04 | ED ---
Psych HPI - General Chief Complaint: Psychiatric Symptoms Stated Complaint: Petition/ Time Seen by Provider: 06/19/25 16:18 Source: patient, police Mode of arrival: ambulatory - History of Present Illness Initial Comments: This patient is a 39-year-old man with history of psychiatric illness who presents with complaint that he hears voices commanding him to do things. The patient attributes these to demons. He states that they became intense after he did some meth and then followed that with marijuana to try and counter the effects. Patient states that he had been out of his medications to control his cravings. Patient is not currently feeling suicidal or homicidal. He states that he is due to go to rehab tomorrow. Complaint: other -: days(s) Associated Psychiatric Symptoms: racing thoughts, delusions History of same: Yes Quality: constant Improves With: medication Context: not taking psychiatric medications Associated Symptoms: denies other symptoms, insomnia - Related Data Home Medications Medication Instructions Recorded Confirmed Haloperidol Decanoate [Haldol D] 200 mg IM Q14D 06/07/24 06/14/24 Previous Rx's Medication Instructions Recorded FLUoxetine HCL [PROzac] 20 mg PO DAILY 7 Days #7 cap 06/10/24 Melatonin 5 mg PO HS PRN tab 06/10/24 Nicotine 14Mg/24Hr Patch [Habitrol] 1 patch TRANSDERM DAILY 14 Days 06/10/24 #14 patch Cephalexin [Keflex] 500 mg PO Q6HR #40 cap 12/03/24 Sulfamethox-Tmp 800-160Mg [Bactrim 1 each PO Q12HR #20 tab 12/03/24 Ds] Mupirocin 2% Oint [Bactroban 2% 1 applic NASAL TID #22 gm 01/14/25 Oint] clindamycin HCL 300 mg PO QID #40 cap 01/14/25 ARIPiprazole [Abilify] 15 mg PO DAILY #7 tablet 06/19/25 buPROPion HCL [Wellbutrin XL] 150 mg PO DAILY #7 tab 06/19/25 Allergies Allergy/AdvReac Type Severity Reaction Status Date / Time flea Allergy Rash/Hives Uncoded 06/19/25 16:17 Review of Systems ROS Statement: Those systems with pertinent positive or pertinent negative responses have been documented in the HPI. ROS Other: All systems not noted in ROS Statement are negative. Constitutional: Denies: fever, chills Respiratory: Denies: cough, dyspnea Cardiovascular: Denies: chest pain, palpitations Gastrointestinal: Denies: abdominal pain, nausea, vomiting Genitourinary: Denies: dysuria, hematuria Musculoskeletal: Denies: back pain Skin: Denies: rash Neurological: Denies: headache, weakness, numbness Psychiatric: Reports: anxiety, auditory hallucinations, other. Denies: homicidal thoughts, suicidal thoughts Past Medical History Past Medical History: GERD/Reflux, Hypertension, Liver Disease, Skin Disorder Additional Past Medical History / Comment(s): Hepatitis C, Pancreatitis, DDD, back pain, bilateral carpel tunnel syndrome. In the past has reported that he has heart disease that was found when he had kidney problems but he denies having a stress test or cardiac catheterization. History of Any Multi-Drug Resistant Organisms: None Reported MDRO Source:: unknown Past Surgical History: No Surgical Hx Reported, Unable to Obtain Additional Past Surgical History / Comment(s): Pt states he has had numerous "cysts" removed from where he injected IV drugs. Past Anesthesia/Blood Transfusion Reactions: No Reported Reaction, Unable to Obtain Additional Past Anesthesia/Blood Transfusion Reaction / Comment(s): In the past pt reported that he has never had surgery Past Psychological History: Anxiety, Bipolar, Depression, Schizophrenia Smoking Status: Current every day smoker Past Alcohol Use History: Abuse, Heavy Past Drug Use History: Cocaine, Heroin, Marijuana, Methamphetamine, Opiates - Past Family History Mother Family Medical History: Unable to Obtain, Rheumatoid Arthritis (RA) Additional Family Medical History / Comment(s): Mother is . Father Family Medical History: Coronary Artery Disease (CAD) General Exam Limitations: no limitations General appearance: alert, in no apparent distress, anxious Head exam: Present: atraumatic, normocephalic Eye exam: Present: normal appearance. Absent: scleral icterus, conjunctival injection ENT exam: Present: normal oropharynx Neck exam: Present: normal inspection Respiratory exam: Present: normal lung sounds bilaterally. Absent: respiratory distress, wheezes, rales, rhonchi, stridor, accessory muscle use Cardiovascular Exam: Present: regular rate, normal rhythm, normal heart sounds. Absent: systolic murmur, diastolic murmur, rubs, gallop GI/Abdominal exam: Present: soft. Absent: distended, tenderness, guarding, rebound, rigid, mass Extremities exam: Present: normal inspection, normal capillary refill. Absent: pedal edema, calf tenderness Back exam: Present: normal inspection. Absent: CVA tenderness (R), CVA tenderness (L) Neurological exam: Present: alert, oriented X3 Psychiatric exam: Present: anxious, manic. Absent: depressed, homicidal ideation, suicidal ideation Skin exam: Present: warm, dry, intact, normal color. Absent: rash Course Vital Signs 06/19/25 16:12 Temperature 99.1 F Pulse Rate 124 H Respiratory 18 Rate Blood Pressure 115/78 O2 Sat by Pulse 95 Oximetry Disposition Clinical Impression: Acute psychosis Disposition: HOME SELF-CARE Condition: Fair Prescriptions: ARIPiprazole [Abilify] 15 mg PO DAILY #7 tablet buPROPion HCL [Wellbutrin XL] 150 mg PO DAILY #7 tab Is patient prescribed a controlled substance at d/c from ED?: No Referrals: Nonstaff,Physician [Primary Care Provider] - 1-2 days
[2025-06-19] MEDS: ARIPiprazole 15 MG TAB PO SCH (19:15)
[2025-06-19 19:24] VITALS: BP 126/83; PULSE 106; TEMP 98.9
== END 2025-06-19 19:20 | disposition home or self-care (01) ==
LOC: EC 15:59
DX: F23 Brief psychotic disorder (principal); F17.200 Nicotine dependence, unspecified, uncomplicated; Z88.8 Allergy status to other drugs, medicaments and biological substances
CPT/HCPCS: 82075; 99284